=== PATIENT | female | born 1980 | race Caucasian/White ===

== ENCOUNTER 2017-08-17 13:43 | Inpatient (IN) | payer MEDICAID, SELFPAY ==
[2017-08-17] VITALS (15 sets, daily range): BP systolic 123–162; BP diastolic 61–115; PULSE 94–127; RESP 18–42; TEMP 36.1–37; O2SAT 89–97; BMI 54.4; BMI 52.7
[2017-08-17] MEDS: Ipratropium/Albuterol Sulfate 3 ML AMPUL.NEB INHALATION ×4 (14:14→23:04)
[2017-08-17] MEDS: Albuterol 2.5 MG/3 ML VIAL.NEB. INHALATION ×5 (14:15→20:52)
[2017-08-17] MEDS: predniSONE 20 MG Tablet 60 MG PO (14:20)
--- NOTE | 2017-08-17 14:20 | ED.VISSUMM ---
- ER Visit Summary Date of Service: 08/17/17 Chief Complaint: Short of breath, cough, wheezing History of Present Illness: The patient is a 37 F who reported took a hit of marijuana from a bong last night. She now has shortness of breath and wheezing. She does report chest congestion with a nonproductive cough as well. Patient went to [facility] where her oxygen saturation was noted to be 86%. She was sent here for treatment. Patient denies a formal diagnosis of asthma, but does state that she gets significant wheezing when she gets sick. She does use an inhaler and steroids when she gets sick, but not when she is otherwise well. Patient does smoke cigarettes. Physical Examination: Vital signs reveal blood pressure 152/87, temperature 97, heart rate 121, respiratory rate 24, pulse ox 95% on room air. Oxygen saturation will fluctuate between the high 80s and mid 90s. Head neck examination is unremarkable. She has moist mucous membranes. Heart is tachycardic and regular. Lung sounds are with expiratory wheezes throughout. She is speaking full sentences. Abdomen is soft and nontender. Test Results: CBC and chemistry studies are unremarkable. Two-view chest x-ray is read as patchy bilateral infiltrates. Emergency Department Course and Treatment: Patient is given p.o. prednisone and aerosol treatments. Following the first round of aerosols, the patient was sleeping comfortably with O2 sat of 97% on room air. She was still having expiratory wheezes but no distress. After she returned from x-ray where they had her stand up and move across the room, her oxygen saturations were back in the mid 80s. She is placed on 2 L nasal cannula and additional air cells are ordered. Patient is currently back on room air and satting in the mid 90s. Heart rate is 120 secondary to the multiple breathing treatments. Patient will be admitted for further treatment. Treatment Plan: [] Disposition: Admit Impression: Viral bronchitis with bronchospasm This note was generated with [employer] dictation software. It may contain incorrect words, spelling, and punctuation that were not noted in review of the chart prior to signing ED Disposition - Plan for ED Patient: Chief Complaint: Shortness of Breath Referrals: Rhonda Adkins MD [Primary Care Provider] -
--- NOTE | 2017-08-17 15:10 | RAD_ITS ---
STUDY: X-RAY CHEST REASON FOR EXAM: Female, 37 years old. Wheezing and shortness of breath. Cough. TECHNIQUE: PA and lateral views of the chest. COMPARISON: Comparison is made with prior study dated July 06, 2010. FINDINGS: There now is evidence of increased markings at both lung bases worse on the right side. This is suggestive of bilateral patchy infiltrates. Follow-up is recommended. There is no demonstrated pleural abnormality. Normal size heart. Normal mediastinum and lizeth. Normal visualized pulmonary arteries. Normal visualized aortic arch and descending thoracic aorta. There are degenerative changes of the visualized thoracic spine. Normal visualized ribs, clavicles, and shoulders. There is no demonstrated abnormality of the visualized soft tissue structures of the upper abdomen. RAD/Chest PA and Lateral IMPRESSION: Patchy bibasilar infiltrates. Follow-up is recommended. Electronically Signed: Kong Glez MD at 15:40 EDT Tel [phone], Service support ,
[2017-08-17 15:47] LABS: Absolute Lymphocyte Count 1.42 X10^3/ul (0.83-4.51); Absolute Neutrophil Count 3.3 X10^3/uL (2.0-7.7); Basophil# 0.02 X10^3/uL; Basophil% 0.4 % (0-1); Eosinophils% 1.9 % (0-5); Hematocrit 44.5 % (37-47); Hemoglobin 13.6 g/dl (12.0-15.0); Lymphocyte # 1.42 X10^3/ul (4.0); Lymphocyte % 26.3 % (19-41); Mean Corp Hgb Conc 30.6 g/gl (32-36); Mean Corpuscular Hgb 29.1 pg (27.0-32.0); Mean Corpuscular Volume 95.1 fL (81-99); Mean Platelet Vol. 9.1 fl (6.2-12.0); Monocyte# 0.55 X10^3/uL; Monocyte% 10.2 % (0-10); Neutrophil # 3.28 X10^3/uL (2.7-7.7); Neutrophil % 60.8 % (47-70); Platelet Count 177 K/mm3 (150-450); RBC Distribution Width SD 51.9 fl (35.1-43.9); Red Blood Count 4.68 M/mm3 (4.2-5.4); White Blood Count 5.4 K/mm3 (4.4-11.0)
[2017-08-17 15:57] LABS: Anion Gap 5 (5-15); BUN 9 mg/dL (7-18); BUN/Creat Ratio 11.2 RATIO (10-20); Calcium,Total 8.6 mg/dL (8.5-10.1); Chloride 107 mmol/L (98-107); Creatinine, Serum 0.81 mg/dL (0.55-1.02); EST Glomerular Filtration Rate 84 mL/min (>60); Est Glom Filt Rate - Afr Amer 101 mL/min (>60); Estimated Creatinine Clearance 77.14 ml/min; Glucose 98 mg/dL (74-106); Sodium Level 140 mmol/L (136-145)
[2017-08-17 16:12] LABS: POSITIVE DIFFERENTIAL NO
[2017-08-17 16:13] LABS: POSITIVE COUNT NO; POSITIVE MORPHOLOGY NO
--- NOTE | 2017-08-17 16:29 | ED.RN ---
02 MONITOR ALARMING, SPO2 85% WITH GOOD WAVEFORM. ASSESSED PT, PT RESTING IN BED WITH NO DISTRESS. 2L 02 NC APPLIED TO PT. O2 RETURNED TO 94%
--- NOTE | 2017-08-17 16:47 | NURSING ---
[address] [employer], DYSPONEA CHAGO
--- NOTE | 2017-08-17 16:49 | PCM.HP.STD ---
Problem List (1) Viral bronchitis Status: Acute (2) Mild intermittent asthma Status: Chronic (3) Obesity Status: Chronic (4) Hypoxemia Status: Acute History of Present Illness Date of Admission: 08/17/17 Chief Complaint: wheezing, short of breath The patient is a 37 year old F's medical history of mild intermittent asthma, obesity, who has had a chest cold for the past few days. 2-3 days ago, she used marijuana recreationally (bong hit). It was a large inhalation, to which she is not accustomed. She noted worsening wheezing and shortness of breath since that time. She attempted self-management with her pro-air inhaler but did not improve. She denies fevers chills nausea vomiting diarrhea, syncope, presyncope, chest pain, pleuritic pain, leg pain. In the emergency department, she was afebrile, mildly tachycardic at 111, respirations 20, saturation 97%. She received albuterol aerosol ?2, DuoNeb ?2 prednisone 60 mg p.o. After x-ray, she was noted to have saturation 80%, with persistent wheezing. Chest x-ray revealed no acute disease to my review, question of streakiness in the bases. Upon seeing the patient, she feels improved with oxygen applied, but still has persistent wheezing, and will therefore be admitted for pulmonary toilet. [] Past Medical History Past Medical History (Chronic Problems): Chronic Problems Mild intermittent asthma (Chronic) Obesity (Chronic) Allergies codeine Allergy (Verified 08/17/17 13:48) Anaphylaxis propoxyphene napsylate [From Darvocet-N] Allergy (Verified 08/17/17 14:07) Rash Sulfa (Sulfonamide Antibiotics) Allergy (Verified 08/17/17 13:48) Anaphylaxis amoxicillin Adverse Reaction (Verified 08/17/17 14:07) Other YEAST INFECTIONS Home Medications: Ambulatory Orders Medication Instructions Recorded Fluticasone 0.05% [Flonase Nasal 1 spray PO DAILY PRN 10/02/16 [place]] Loratadine [Loratadine] 10 mg PO DAILY 10/02/16 Nortriptyline HCl [Pamelor] 10 mg PO DAILY 10/02/16 Tizanidine HCl [Zanaflex] 1 tab PO DAILY 10/02/16 Zolpidem Tartrate [Ambien] 10 mg PO DAILY 10/02/16 Surgical History: noncontributory Psychiatric History: No pertinent psych hx Smoking Status: Current every day smoker Review of Systems Respiratory: Reports: Shortness of breath upon exertion, Wheezing VTE Information - Inpt Only VTE Present on Admission: No VTE Mechan Device Prophylaxis: SCD's VTE Pharm Prophylaxis ordered?: Yes Patient Problems: Active and Suspected Problems Viral bronchitis (Acute) Hypoxemia (Acute) - Physical Exam General: Alert, Oriented x3, Cooperative, No apparent distress HEENT: Atraumatic, PERRLA, EOMI, - - upper airway wheezes Oral: Moist Mucosa Neck: No JVD, No Nodes, No Nuchal Rigidity, Trachea Midline, Thyroid Normal Size and Texture Lungs: Wheezes Cardiovascular: Regular Rhythm, Normal S1, Normal S2, Tachycardic Abdomen: Soft, Non Tender, Non-Distended, Obese Extremities: - - non tender Musculoskeletal: No Tenderness to Palpation of Joints or Extremities, No Muscle Wasting Psych/Mental Status: Normal Affect, Appropriate Vital Signs Temp Pulse Resp BP Pulse Ox 97 F L 111 H 24 H 133/115 H 97 08/17/17 13:44 08/17/17 16:01 08/17/17 16:01 08/17/17 15:42 08/17/17 15:42 Oxygen Flow Rate (L/min) 2 Oxygen Delivery Method Nasal Cannula Weight: 307 lb 8.717 oz Body Mass Index (BMI) 54.4 Laboratory Tests Past 24 Hrs 08/17/17 08/17/17 15:30 15:30 WBC 5.4 RBC 4.68 Hgb 13.6 Hct 44.5 MCV 95.1 MCH 29.1 MCHC 30.6 L RDW 15.0 H RDW Differential 51.9 H Plt Count 177 MPV 9.1 Immature Gran % (Auto) 0.400 Neut % (Auto) 60.8 Lymph % (Auto) 26.3 Banner % (Auto) 10.2 H Eos % (Auto) 1.9 Baso % (Auto) 0.4 Absolute Neuts (auto) 3.3 Absolute Lymphs (auto) 1.42 Total Counted Not Reportable Sodium 140 Potassium 4.0 Chloride 107 Carbon Dioxide 28.0 Anion Gap 5 BUN 9 Creatinine 0.81 Estim Creat Clear Calc 77.14 Est GFR (MDRD) Af Amer 101 Est GFR (MDRD) Non-Af 84 BUN/Creatinine Ratio 11.2 Glucose 98 Calcium 8.6 Assessment/Plan Active and Suspected Problems Viral bronchitis (Acute) Hypoxemia (Acute) This is a 37-year-old smoking female with past medical history of mild intermittent asthma, who presents with reactive airway issues/active wheezing exertional hypoxemia in the setting of viral bronchitis and inhalational lung injury. Medical comorbidities include obesity, mild intermittent asthma, and intermittent osteoarthritic joint pains. 1. Viral bronchitis 2. Reactive airway/wheezing, in the setting of #1 and inhalation injury 3. Super morbid obesity 4. Exertional hypoxemia 5. History of insomnia on zolpidem at bedtime as needed 6. OA pains PLAN: Admit MedSurg telemetry Oxygen support per protocol Pulmonary toilet with DuoNeb aerosol every 4 hours while awake, albuterol aerosol every 2 hours as needed, Solu-Medrol 40 mg IV every 8 hour, Mucinex, Robitussin-DM as needed, cepacol lozenges as needed Glycemic control with NovoLog mild/medium scale prandial and at bedtime Patient is counseled
[2017-08-17 18:50] LABS: Bedside Glucose 193 mg/dL (70-110)
--- NOTE | 2017-08-17 19:12 | NURSING ---
KEYSHA FROM [facility] NOTIFIED OF PT NEED FOR STAT AEROSOL rX
[2017-08-17 19:17] LABS: Hemoglobin A1c 6.3 % (4.2-6.3)
[2017-08-17] MEDS: guaiFENesin 600 MG Tablet PO (22:23)
[2017-08-17 22:55] LABS: Bedside Glucose 196 mg/dL (70-110)
[2017-08-18] VITALS (20 sets, daily range): BP systolic 127–150; BP diastolic 67–96; PULSE 101–126; RESP 20–26; TEMP 36.4–37.3; O2SAT 82–98
[2017-08-18] MEDS: Ipratropium/Albuterol Sulfate 3 ML AMPUL.NEB INHALATION ×6 (03:00→23:44)
[2017-08-18] MEDS: 0.9% NaCl Peripheral Flush Adult/Peds IV ×2 (06:09→14:11)
[2017-08-18 06:32] LABS: Absolute Lymphocyte Count 1.14 X10^3/ul (0.83-4.51); Absolute Neutrophil Count 7.8 X10^3/uL (2.0-7.7); Basophil# 0.02 X10^3/uL; Basophil% 0.2 % (0-1); Hematocrit 43.3 % (37-47); Hemoglobin 13.2 g/dl (12.0-15.0); Lymphocyte # 1.14 X10^3/ul (4.0); Lymphocyte % 11.7 % (19-41); Mean Corp Hgb Conc 30.5 g/gl (32-36); Mean Corpuscular Hgb 29.1 pg (27.0-32.0); Mean Corpuscular Volume 95.6 fL (81-99); Mean Platelet Vol. 9.1 fl (6.2-12.0); Monocyte# 0.79 X10^3/uL; Monocyte% 8.1 % (0-10); Neutrophil # 7.79 X10^3/uL (2.7-7.7); Neutrophil % 79.9 % (47-70); Platelet Count 200 K/mm3 (150-450); RBC Distribution Width CV 15.1 % (11.6-14.6); RBC Distribution Width SD 52.4 fl (35.1-43.9); Red Blood Count 4.53 M/mm3 (4.2-5.4); White Blood Count 9.8 K/mm3 (4.4-11.0)
[2017-08-18 06:51] LABS: POSITIVE COUNT NO; POSITIVE DIFFERENTIAL NO; POSITIVE MORPHOLOGY NO
[2017-08-18 06:54] LABS: Anion Gap 8 (5-15); BUN 13 mg/dL (7-18); BUN/Creat Ratio 17.5 RATIO (10-20); Calcium,Total 8.6 mg/dL (8.5-10.1); Chloride 107 mmol/L (98-107); Creatinine, Serum 0.74 mg/dL (0.55-1.02); EST Glomerular Filtration Rate 92 mL/min (>60); Est Glom Filt Rate - Afr Amer 112 mL/min (>60); Estimated Creatinine Clearance 88.14 ml/min; Glucose 148 mg/dL (74-106); Magnesium 2.1 mg/dL (1.6-2.6); Potassium 4.7 mmol/L (3.5-5.1); Sodium Level 136 mmol/L (136-145)
[2017-08-18] MEDS: Nortriptyline 10 MG Capsule PO (09:07)
[2017-08-18] MEDS: tiZANidine HCl 2 MG Tablet PO (09:07)
[2017-08-18] MEDS: Loratadine 10 MG Tablet PO (09:07)
[2017-08-18] MEDS: guaiFENesin 600 MG Tablet PO ×2 (09:07→21:35)
[2017-08-18] MEDS: Famotidine 20 MG Tablet PO ×2 (09:12→21:35)
--- NOTE | 2017-08-18 09:40 | RAD_ITS ---
STUDY: X-RAY CHEST REASON FOR EXAM: Female, 37 years old. Wheezing. Shortness of breath. TECHNIQUE: Single AP portable view of the chest. COMPARISON: Comparison is made with prior study dated August 17, 2017. FINDINGS: EKG electrodes are seen. The lungs are clear and expanded. There is no demonstrated pleural abnormality. Normal size heart. Normal mediastinum and lizeth. Normal visualized pulmonary arteries. Normal visualized aortic arch and descending thoracic aorta. Normal visualized thoracic spine. Normal visualized ribs, clavicles, and shoulders. There is no demonstrated abnormality of the visualized soft tissue structures of the upper abdomen. RAD/Chest 1 View (Portable) IMPRESSION: No acute abnormality is seen. Electronically Signed: Kong Glez MD at 15:11 EDT Tel [phone], Service support ,
[2017-08-18 12:35] LABS: Bedside Glucose 265 mg/dL (70-110)
--- NOTE | 2017-08-18 15:01 | PCM.PN.HOSP ---
Patient Problems: Active and Suspected Problems Viral bronchitis (Acute) Hypoxemia (Acute) Subjective: Patient was seen and examined. Remains on Venturi mask. Having labile moods. Still wheezing. No sputum production. Objective: Physical Exam General: Alert, Oriented x3, Cooperative, morbidly obese, generalised wheezes all over chest. HEENT: Atraumatic, PERRLA, EOMI, - - upper airway wheezes Oral: Moist Mucosa Neck: No JVD, No Nodes, No Nuchal Rigidity, Trachea Midline, Thyroid Normal Size and Texture Lungs: Wheezes Cardiovascular: Regular Rhythm, Normal S1, Normal S2, Tachycardic Abdomen: Soft, Non Tender, Non-Distended, Obese Extremities: - - non tender Musculoskeletal: No Tenderness to Palpation of Joints or Extremities, No Muscle Wasting Psych/Mental Status: Normal Affect, Appropriate Vitals/I&O's: Vital Signs Temp Pulse Resp BP Pulse Ox 98.1 F 104 H 22 H 127/71 H 92 08/18/17 09:03 08/18/17 14:05 08/18/17 14:05 08/18/17 09:03 08/18/17 09:03 Oxygen Flow Rate (L/min) 5 Oxygen Delivery Method Venturi Mask Weight: 139.5 kg Body Mass Index (BMI) 52.7 Intake and Output for Last 24 Hours 08/16/17 08/17/17 08/18/17 23:59 23:59 23:59 Intake Total 300 / 300 2720 / 2720 Output Total 600 / 600 850 / 850 Balance -300 / -300 1870 / 1870 Laboratory Results 08/17/17 18:41: POC Glucose 193 H 08/17/17 22:17: POC Glucose 196 H 08/18/17 06:18: Sodium 136, Potassium 4.7, Chloride 107, Carbon Dioxide 21.0, Anion Gap 8, BUN 13, Creatinine 0.74, Estim Creat Clear Calc 88.14, Est GFR (MDRD) Af Amer 112, Est GFR (MDRD) Non-Af 92, BUN/Creatinine Ratio 17.5, Glucose 148 H, Calcium 8.6, Magnesium 2.1 08/18/17 06:18: WBC 9.8, RBC 4.53, Hgb 13.2, Hct 43.3, MCV 95.6, MCH 29.1, MCHC 30.5 L, RDW 15.1 H, RDW Differential 52.4 H, Plt Count 200, MPV 9.1, Immature Gran % (Auto) 0.100, Neut % (Auto) 79.9 H, Lymph % (Auto) 11.7 L, Sevier % (Auto) 8.1, Eos % (Auto) 0.0, Baso % (Auto) 0.2, Absolute Neuts (auto) 7.8 H, Absolute Lymphs (auto) 1.14, Total Counted Not Reportable 08/18/17 12:30: POC Glucose 265 H Current Medications Acetaminophen (Tylenol) 650 mg PO Q6H PRN PRN PRN Reason: Mild Pain (scale 0-3)/T>100.7 Albuterol Sulfate (Ventolin Aerosols) 2.5 mg INHALATION Q2H PRN PRN Reason: WHEEZING Last Admin: 08/17/17 20:52 Dose: 2.5 mg Albuterol/Ipratropium (Duoneb) 3 ml INHALATION Q4HWA.RT [facility] Last Admin: 08/18/17 14:04 Dose: 3 ml Dextrose (D50w Syringe) 0 gm IV X1 PRN; Protocol PRN Reason: Hypoglycemia Docusate Sodium (Colace) 200 mg PO BID PRN PRN PRN Reason: Constipation Famotidine (Pepcid) 20 mg PO BID [facility] Last Admin: 08/18/17 09:12 Dose: 20 mg Glucagon () 1 mg IM .X1 PRN PRN Reason: Hypoglycemia Guaifenesin (Robitussin Dm) 10 ml PO Q6H PRN PRN PRN Reason: COUGH Guaifenesin (Mucinex) 600 mg PO BID [facility] Last Admin: 08/18/17 09:07 Dose: 600 mg Heparin Sodium (Porcine) (Heparin Na) 5,000 unit SC BID [facility] Last Admin: 08/18/17 09:12 Dose: Not Given Insulin Aspart (Novolog Flexpen (Bkc)) 0 units SC ACHS [facility] PRN Reason: Protocol Last Admin: 08/18/17 12:39 Dose: 2 u Loratadine (Claritin) 10 mg PO DAILY [facility] Last Admin: 08/18/17 09:07 Dose: 10 mg Magnesium Hydroxide (Milk Of Magnesia) 30 ml PO DAILY PRN PRN PRN Reason: Constipation Methylprednisolone (Solu-Medrol) 40 mg IV Q8 [facility] Last Admin: 08/18/17 14:11 Dose: 40 mg Nortriptyline HCl (Pamelor) 10 mg PO DAILY [facility] Last Admin: 08/18/17 09:07 Dose: 10 mg Ondansetron HCl (Zofran) 4 mg IV Q8H PRN PRN PRN Reason: Nausea Sodium Chloride () 5 - 30 ml IV UD PRN PRN Reason: SALINE FLUSH Last Admin: 08/18/17 14:11 Dose: 10 ml Throat Lozenges (Cepacol Sore Throat Lozenge) 1 lozenge MUCOUS MEM PRN PRN PRN Reason: PAIN Tizanidine HCl (Zanaflex) 2 mg PO DAILY [facility] Last Admin: 08/18/17 09:07 Dose: 2 mg Zolpidem Tartrate (Ambien (Generic)) 5 mg PO QHS PRN PRN Reason: SLEEP Medical Necessity - Tobacco Use Smoking Status: Current every day smoker Assessment/Plan Active and Suspected Problems Viral bronchitis (Acute) Hypoxemia (Acute) 37-year-old with past medical history of mild intermittent asthma, admitted on 08/17/17 with cough and wheezing with reactive airway issues/active wheezing exertional hypoxemia in the setting of viral bronchitis and inhalational lung injury. 1. Acute hypoxic respiratory insufficiency secondary to reactive airway disease/viral bronchitis/inhalation injury(from Marijuana), ? additives in the marijuana inhaled, respiratory panel pending, on high flow oxygen, wean off for SPO2 more than 94%, continue breathing treatment. Pulmonology consult. 2. Super morbid obesity, weight loss, diet recommended, needs referral for evaluation for possible bariatric surgery 3. Insomnia, on zolpidem at bedtime as needed 4. Osteoarthritis 5. Hyperglycemia, HbA1c is 6.3, on NovoLog insulin sliding scale 6. DVT PPx- Heparin SC TID- Code Visit Inpatient E&M: 36233 [facility] Hosp L3
--- NOTE | 2017-08-18 15:11 | PN_ITS ---
Patient Problems: Active and Suspected Problems Viral bronchitis (Acute) Hypoxemia (Acute) Subjective: Patient was seen and examined. Remains on Venturi mask. Having labile moods. Still wheezing. No sputum production. Objective: Physical Exam General: Alert, Oriented x3, Cooperative, morbidly obese, generalised wheezes all over chest. HEENT: Atraumatic, PERRLA, EOMI, - - upper airway wheezes Oral: Moist Mucosa Neck: No JVD, No Nodes, No Nuchal Rigidity, Trachea Midline, Thyroid Normal Size and Texture Lungs: Wheezes Cardiovascular: Regular Rhythm, Normal S1, Normal S2, Tachycardic Abdomen: Soft, Non Tender, Non-Distended, Obese Extremities: - - non tender Musculoskeletal: No Tenderness to Palpation of Joints or Extremities, No Muscle Wasting Psych/Mental Status: Normal Affect, Appropriate Vitals/I&O's: Vital Signs Temp Pulse Resp BP Pulse Ox 98.1 F 104 H 22 H 127/71 H 92 08/18/17 09:03 08/18/17 14:05 08/18/17 14:05 08/18/17 09:03 08/18/17 09:03 Oxygen Flow Rate (L/min) 5 Oxygen Delivery Method Venturi Mask Weight: 139.5 kg Body Mass Index (BMI) 52.7 Intake and Output for Last 24 Hours 08/16/17 08/17/17 08/18/17 23:59 23:59 23:59 Intake Total 300 / 300 2720 / 2720 Output Total 600 / 600 850 / 850 Balance -300 / -300 1870 / 1870 Laboratory Results 08/17/17 18:41: POC Glucose 193 H 08/17/17 22:17: POC Glucose 196 H 08/18/17 06:18: Sodium 136, Potassium 4.7, Chloride 107, Carbon Dioxide 21.0, Anion Gap 8, BUN 13, Creatinine 0.74, Estim Creat Clear Calc 88.14, Est GFR ( MDRD) Af Amer 112, Est GFR (MDRD) Non-Af 92, BUN/Creatinine Ratio 17.5, Glucose 148 H, Calcium 8.6, Magnesium 2.1 08/18/17 06:18: WBC 9.8, RBC 4.53, Hgb 13.2, Hct 43.3, MCV 95.6, MCH 29.1, MCHC 30.5 L, RDW 15.1 H, RDW Differential 52.4 H, Plt Count 200, MPV 9.1, Immature Gran % (Auto) 0.100, Neut % (Auto) 79.9 H, Lymph % (Auto) 11.7 L, Lee % (Auto) 8.1, Eos % (Auto) 0.0, Baso % (Auto) 0.2, Absolute Neuts (auto) 7.8 H, Absolute Lymphs (auto) 1.14, Total Counted Not Reportable 08/18/17 12:30: POC Glucose 265 H Current Medications Acetaminophen (Tylenol) 650 mg PO Q6H PRN PRN PRN Reason: Mild Pain (scale 0-3)/T>100.7 Albuterol Sulfate (Ventolin Aerosols) 2.5 mg INHALATION Q2H PRN PRN Reason: WHEEZING Last Admin: 08/17/17 20:52 Dose: 2.5 mg Albuterol/Ipratropium (Duoneb) 3 ml INHALATION Q4HWA.RT [facility] Last Admin: 08/18/17 14:04 Dose: 3 ml Dextrose (D50w Syringe) 0 gm IV X1 PRN; Protocol PRN Reason: Hypoglycemia Docusate Sodium (Colace) 200 mg PO BID PRN PRN PRN Reason: Constipation Famotidine (Pepcid) 20 mg PO BID [facility] Last Admin: 08/18/17 09:12 Dose: 20 mg Glucagon () 1 mg IM .X1 PRN PRN Reason: Hypoglycemia Guaifenesin (Robitussin Dm) 10 ml PO Q6H PRN PRN PRN Reason: COUGH Guaifenesin (Mucinex) 600 mg PO BID [facility] Last Admin: 08/18/17 09:07 Dose: 600 mg Heparin Sodium (Porcine) (Heparin Na) 5,000 unit SC BID [facility] Last Admin: 08/18/17 09:12 Dose: Not Given Insulin Aspart (Novolog Flexpen (Bkc)) 0 units SC ACHS [facility] PRN Reason: Protocol Last Admin: 08/18/17 12:39 Dose: 2 u Loratadine (Claritin) 10 mg PO DAILY [facility] Last Admin: 08/18/17 09:07 Dose: 10 mg Magnesium Hydroxide (Milk Of Magnesia) 30 ml PO DAILY PRN PRN PRN Reason: Constipation Methylprednisolone (Solu-Medrol) 40 mg IV Q8 [facility] Last Admin: 08/18/17 14:11 Dose: 40 mg Nortriptyline HCl (Pamelor) 10 mg PO DAILY [facility] Last Admin: 08/18/17 09:07 Dose: 10 mg Ondansetron HCl (Zofran) 4 mg IV Q8H PRN PRN PRN Reason: Nausea Sodium Chloride () 5 - 30 ml IV UD PRN PRN Reason: SALINE FLUSH Last Admin: 08/18/17 14:11 Dose: 10 ml Throat Lozenges (Cepacol Sore Throat Lozenge) 1 lozenge MUCOUS MEM PRN PRN PRN Reason: PAIN Tizanidine HCl (Zanaflex) 2 mg PO DAILY [facility] Last Admin: 08/18/17 09:07 Dose: 2 mg Zolpidem Tartrate (Ambien (Generic)) 5 mg PO QHS PRN PRN Reason: SLEEP Medical Necessity - Tobacco Use Smoking Status: Current every day smoker Assessment/Plan Active and Suspected Problems Viral bronchitis (Acute) Hypoxemia (Acute) 37-year-old with past medical history of mild intermittent asthma, admitted on with cough and wheezing with reactive airway issues/active wheezing exertional hypoxemia in the setting of viral bronchitis and inhalational lung injury. 1. Acute hypoxic respiratory insufficiency secondary to reactive airway disease/ viral bronchitis/inhalation injury(from Marijuana), ? additives in the marijuana inhaled, respiratory panel pending, on high flow oxygen, wean off for SPO2 more than 94%, continue breathing treatment. Pulmonology consult. 2. Super morbid obesity, weight loss, diet recommended, needs referral for evaluation for possible bariatric surgery 3. Insomnia, on zolpidem at bedtime as needed 4. Osteoarthritis 5. Hyperglycemia, HbA1c is 6.3, on NovoLog insulin sliding scale 6. DVT PPx- Heparin SC TID- Code Visit Inpatient E&M: 50285 [facility] L3
--- NOTE | 2017-08-18 15:35 | CASEMGMT ---
[facility] Face to Face with patient for initial transition planning/care coordination assessment. RN SAÚL introduced self and role at [facility]. Patient lying in bed, alert and oriented. Patient willing to participate in assessment and is able to answer all questions appropriately. Care providers, pharmacy, and demographics verified. See link attached. Patient wishes to discharge home, denies need for home health at this time. Patient states that she may need new nebulizer has hers is old and cannot find it, may be in storage. Patient states she has no further needs or concerns at this time. CM to follow for discharge planning needs that may arise. Disposition Plan: Patient to discharge home with family support and follow-up plans in place. Will continue to monitor for need for home oxygen and nebulizer.
[2017-08-18 16:11] LABS: Bedside Glucose 177 mg/dL (70-110)
--- NOTE | 2017-08-18 16:49 | CHAPLAIN ---
Type of Pastoral Visit _x__ Initial Visit ___ Follow-up Visit ___ On-call Visit ___ General Patient Visit ___ Spiritual Assessment ___ Family Conference ___ Bereavement ___ Rapid Response ___ Code Blue ___ Other (describe below) Pastoral Care Referral From _x__ Patient ___ Family ___ Nurse ___ Physician ___ Lan Manager ___ Equipment Processor ___ Other (describe below) Sacrament/Intervention _x__ Active listening ___ Anointing ___ Mandaen ___ Bereavement ___ Communion ___ Teresa exploration ___ ___ Life review ___ Prayer ___ Reconciliation ___ Sacrament of Sick ___ Supportive presence ___ Wedding ___ Other (describe below) Pastoral Comments patient was receiving a breathing treatment at time of visit; pt said that she is frustrated because she should be down in [facility] because a granddaughter was born there last night; brief visit
[2017-08-18 22:21] LABS: Bedside Glucose 201 mg/dL (70-110)
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
--- NOTE | 2017-08-18 23:40 | NURSING ---
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
[2017-08-19] VITALS (14 sets, daily range): BP systolic 122–157; BP diastolic 61–94; PULSE 86–122; RESP 20–24; TEMP 36.2–36.9; O2SAT 84–99
[2017-08-19] MEDS: Ipratropium/Albuterol Sulfate 3 ML AMPUL.NEB INHALATION ×6 (03:17→23:25)
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
[2017-08-19] MEDS: tiZANidine HCl 2 MG Tablet PO (09:45)
[2017-08-19] MEDS: Nortriptyline 10 MG Capsule PO (09:45)
[2017-08-19] MEDS: Loratadine 10 MG Tablet PO (09:45)
[2017-08-19] MEDS: guaiFENesin 600 MG Tablet PO ×2 (09:45→21:41)
[2017-08-19] MEDS: Famotidine 20 MG Tablet PO ×2 (09:45→21:41)
[2017-08-19] MEDS: Acetaminophen 325 MG Tablet 650 MG PO ×2 (09:56→22:58)
[2017-08-19] MEDS: guaiFENesin Dm 10 ML UDC PO ×2 (09:56→22:58)
[2017-08-19 11:41] LABS: Bedside Glucose 210 mg/dL (70-110)
[2017-08-19 11:45] LABS: Bedside Glucose 204 mg/dL (70-110)
--- NOTE | 2017-08-19 14:42 | PN_ITS ---
Patient Problems: Active and Suspected Problems Viral bronchitis (Acute) Hypoxemia (Acute) Acute respiratory failure with hypoxia (Acute) Suspected sleep apnea (Acute) Subjective: Patient was seen and examined, still has wheezes, remains on high flow oxygen, denies any fever or chills. Respiratory panel has been positive for human Rider pneumo virus Objective: Physical Exam General: Alert, Oriented x3, Cooperative, morbidly obese, generalised wheezes all over chest. HEENT: Atraumatic, PERRLA, EOMI, - - upper airway wheezes Oral: Moist Mucosa Neck: No JVD, No Nodes, No Nuchal Rigidity, Trachea Midline, Thyroid Normal Size and Texture Lungs: Wheezes Cardiovascular: Regular Rhythm, Normal S1, Normal S2, Tachycardic Abdomen: Soft, Non Tender, Non-Distended, Obese Extremities: - - non tender Musculoskeletal: No Tenderness to Palpation of Joints or Extremities, No Muscle Wasting Psych/Mental Status: Normal Affect, Appropriate Vitals/I&O's: Vital Signs Temp Pulse Resp BP Pulse Ox 97.1 F L 100 20 H 136/78 H 84 08/19/17 09:40 08/19/17 10:54 08/19/17 10:54 08/19/17 09:40 08/19/17 09:40 Oxygen Flow Rate (L/min) 8 Oxygen Delivery Method Venturi Mask Weight: 139.5 kg Body Mass Index (BMI) 52.7 Intake and Output for Last 24 Hours 08/17/17 08/18/17 08/19/17 23:59 23:59 23:59 Intake Total 300 / 300 3670 / 3670 1000 / 1000 Output Total 600 / 600 850 / 850 Balance -300 / -300 2820 / 2820 1000 / 1000 Microbiology Past 72 Hours 08/18/17 14:01 Mucosa - Nose Respiratory Panel (PCR) - Final Human [place] Laboratory Results 08/18/17 16:05: POC Glucose 177 H 08/18/17 21:28: POC Glucose 201 H 08/19/17 07:00: POC Glucose 204 H 08/19/17 11:30: POC Glucose 210 H Current Medications Acetaminophen (Tylenol) 650 mg PO Q6H PRN PRN PRN Reason: Mild Pain (scale 0-3)/T>100.7 Last Admin: 08/19/17 09:56 Dose: 650 mg Albuterol Sulfate (Ventolin Aerosols) 2.5 mg INHALATION Q2H PRN PRN Reason: WHEEZING Last Admin: 08/17/17 20:52 Dose: 2.5 mg Albuterol/Ipratropium (Duoneb) 3 ml INHALATION Q4HWA.RT [facility] Last Admin: 08/19/17 10:54 Dose: 3 ml Dextrose (D50w Syringe) 0 gm IV X1 PRN; Protocol PRN Reason: Hypoglycemia Docusate Sodium (Colace) 200 mg PO BID PRN PRN PRN Reason: Constipation Famotidine (Pepcid) 20 mg PO BID [facility] Last Admin: 08/19/17 09:45 Dose: 20 mg Glucagon () 1 mg IM .X1 PRN PRN Reason: Hypoglycemia Guaifenesin (Robitussin Dm) 10 ml PO Q6H PRN PRN PRN Reason: COUGH Last Admin: 08/19/17 09:56 Dose: 10 ml Guaifenesin (Mucinex) 600 mg PO BID [facility] Last Admin: 08/19/17 09:45 Dose: 600 mg Heparin Sodium (Porcine) (Heparin Na) 5,000 unit SC TID [facility] Last Admin: 08/19/17 05:31 Dose: Not Given Sodium Chloride () 250 mls @ 15 mls/hr IV .[id number] PRN PRN Reason: SALINE FLUSH Insulin Aspart (Novolog Flexpen (Bkc)) 0 units SC ACHS [facility] PRN Reason: Protocol Last Admin: 08/19/17 11:34 Dose: 2 u Loratadine (Claritin) 10 mg PO DAILY [facility] Last Admin: 08/19/17 09:45 Dose: 10 mg Magnesium Hydroxide (Milk Of Magnesia) 30 ml PO DAILY PRN PRN PRN Reason: Constipation Methylprednisolone (Solu-Medrol) 40 mg IV Q8 [facility] Last Admin: 08/19/17 05:30 Dose: 40 mg Nortriptyline HCl (Pamelor) 10 mg PO DAILY [facility] Last Admin: 08/19/17 09:45 Dose: 10 mg Ondansetron HCl (Zofran) 4 mg IV Q8H PRN PRN PRN Reason: Nausea Sodium Chloride () 5 - 30 ml IV UD PRN PRN Reason: SALINE FLUSH Last Admin: 08/18/17 14:11 Dose: 10 ml Throat Lozenges (Cepacol Sore Throat Lozenge) 1 lozenge MUCOUS MEM PRN PRN PRN Reason: PAIN Tizanidine HCl (Zanaflex) 2 mg PO DAILY [facility] Last Admin: 08/19/17 09:45 Dose: 2 mg Zolpidem Tartrate (Ambien (Generic)) 5 mg PO QHS PRN PRN Reason: SLEEP Medical Necessity - Tobacco Use Smoking Status: Heavy Smoker (>10/day) - [id number] history Tobacco Use: Cigarettes Assessment/Plan Active and Suspected Problems Viral bronchitis (Acute) Hypoxemia (Acute) Acute respiratory failure with hypoxia (Acute) Suspected sleep apnea (Acute) 37-year-old with past medical history of mild intermittent asthma, admitted on with cough and wheezing with reactive airway issues/active wheezing exertional hypoxemia in the setting of viral bronchitis and inhalational lung injury. 1. Acute hypoxic respiratory insufficiency secondary to reactive airway disease/ human metpneumo viral bronchitis/inhalation injury(from Marijuana), ? additives in the marijuana inhaled, respiratory panel pending, on high flow oxygen, wean off for SPO2 more than 94%, continue breathing treatment. Pulmonology consult. 2. Super morbid obesity, weight loss, diet recommended, needs referral for evaluation for possible bariatric surgery 3. Insomnia, on zolpidem at bedtime as needed 4. Osteoarthritis 5. Hyperglycemia, HbA1c is 6.3, on NovoLog insulin sliding scale 6. Polysubstance use, marijuana, nicotine, advised to quit 7. DVT PPx- Heparin SC TID- Code Visit Inpatient E&M: 331[address] [facility] L3
[2017-08-19] MEDS: 0.9% NaCl Peripheral Flush Adult/Peds IV (15:52)
[2017-08-19 18:26] LABS: Bedside Glucose 168 mg/dL (70-110)
[2017-08-19 21:56] LABS: Bedside Glucose 168 mg/dL (70-110)
[2017-08-19] MEDS: Zolpidem Tartrate 5 MG Tablet PO (22:58)
[2017-08-20] VITALS (15 sets, daily range): BP systolic 119–158; BP diastolic 64–88; PULSE 72–97; RESP 16–22; TEMP 36–36.9; O2SAT 77–97
[2017-08-20] MEDS: Ipratropium/Albuterol Sulfate 3 ML AMPUL.NEB INHALATION ×5 (06:32→22:26)
[2017-08-20 07:06] LABS: Bedside Glucose 177 mg/dL (70-110)
[2017-08-20] MEDS: Albuterol 2.5 MG/3 ML VIAL.NEB. INHALATION (08:24)
--- NOTE | 2017-08-20 08:28 | PCM.PN.HOSP ---
Patient Problems: Active and Suspected Problems Acute bronchitis due to human metapneumovirus (Acute) Acute respiratory failure with hypoxia (Acute) Suspected sleep apnea (Acute) Subjective: Patient was seen and examined. She feels frustrated, wants to go out and smoke, wants to be discharged. She has audible wheezes, still on high flow oxygen, the only slight improvement is that she is able to talk at 8-10 L of oxygen as needed for nasal cannula without any breaks or stop for shortness of breath. Denies any fever or chills, starting to have some clear sputum production. Objective: Physical Exam General: Alert, Oriented x3, Cooperative, morbidly obese, generalised wheezes all over chest. HEENT: Atraumatic, PERRLA, EOMI, - - upper airway wheezes Oral: Moist Mucosa Neck: No JVD, No Nodes, No Nuchal Rigidity, Trachea Midline, Thyroid Normal Size and Texture Lungs: Wheezes Cardiovascular: Regular Rhythm, Normal S1, Normal S2, Tachycardic Abdomen: Soft, Non Tender, Non-Distended, Obese Extremities: - - non tender Musculoskeletal: No Tenderness to Palpation of Joints or Extremities, No Muscle Wasting Psych/Mental Status: Normal Affect, Appropriate Vitals/I&O's: Vital Signs Temp Pulse Resp BP Pulse Ox 96.9 F L 90 20 H 119/64 77 08/20/17 02:04 08/20/17 02:04 08/20/17 02:04 08/20/17 02:04 08/20/17 07:45 Oxygen Flow Rate (L/min) 8 Oxygen Delivery Method Venturi Mask Weight: 139.5 kg Body Mass Index (BMI) 52.7 Intake and Output for Last 24 Hours 08/18/17 08/19/17 08/20/17 23:59 23:59 23:59 Intake Total 3670 / 3670 1300 / 1300 100 / 100 Output Total 850 / 850 Balance 2820 / 2820 1299 / 1299 100 / 100 Microbiology Past 72 Hours 08/18/17 14:01 Mucosa - Nose Respiratory Panel (PCR) - Final Human [place] Laboratory Results 08/19/17 07:00: POC Glucose 204 H 08/19/17 11:30: POC Glucose 210 H 08/19/17 16:49: POC Glucose 168 H 08/19/17 21:40: POC Glucose 168 H 08/20/17 06:55: POC Glucose 177 H Current Medications Acetaminophen (Tylenol) 650 mg PO Q6H PRN PRN PRN Reason: Mild Pain (scale 0-3)/T>100.7 Last Admin: 08/19/17 22:58 Dose: 650 mg Albuterol Sulfate (Ventolin Aerosols) 2.5 mg INHALATION Q2H PRN PRN Reason: WHEEZING Last Admin: 08/20/17 08:24 Dose: 2.5 mg Albuterol/Ipratropium (Duoneb) 3 ml INHALATION Q4HWA.RT [facility] Last Admin: 08/20/17 06:32 Dose: 3 ml Dextrose (D50w Syringe) 0 gm IV X1 PRN; Protocol PRN Reason: Hypoglycemia Docusate Sodium (Colace) 200 mg PO BID PRN PRN PRN Reason: Constipation Duloxetine HCl (Cymbalta) 90 mg PO DAILY [facility] Famotidine (Pepcid) 20 mg PO BID [facility] Last Admin: 08/19/17 21:41 Dose: 20 mg Glucagon () 1 mg IM .X1 PRN PRN Reason: Hypoglycemia Guaifenesin (Robitussin Dm) 10 ml PO Q6H PRN PRN PRN Reason: COUGH Last Admin: 08/19/17 22:58 Dose: 10 ml Guaifenesin (Mucinex) 600 mg PO BID [facility] Last Admin: 08/19/17 21:41 Dose: 600 mg Heparin Sodium (Porcine) (Heparin Na) 5,000 unit SC TID [facility] Last Admin: 08/20/17 05:20 Dose: Not Given Sodium Chloride () 250 mls @ 15 mls/hr IV .[id number] PRN PRN Reason: SALINE FLUSH Insulin Aspart (Novolog Flexpen (Bkc)) 0 units SC ACHS [facility] PRN Reason: Protocol Last Admin: 08/20/17 06:57 Dose: 1 u Loratadine (Claritin) 10 mg PO DAILY [facility] Last Admin: 08/19/17 09:45 Dose: 10 mg Magnesium Hydroxide (Milk Of Magnesia) 30 ml PO DAILY PRN PRN PRN Reason: Constipation Methylprednisolone (Solu-Medrol) 40 mg IV Q8 [facility] Last Admin: 08/20/17 06:10 Dose: 40 mg Nicotine (Nicoderm Cq (Pbkc)) 21 mg TRANSDERM. DAILY [facility] Nicotine Polacrilex ([place] Nicotine (Bkc)) 2 mg PO Q2H PRN PRN PRN Reason: Nicotine Craving Nortriptyline HCl (Pamelor) 10 mg PO DAILY [facility] Last Admin: 08/19/17 09:45 Dose: 10 mg Ondansetron HCl (Zofran) 4 mg IV Q8H PRN PRN PRN Reason: Nausea Sodium Chloride () 5 - 30 ml IV UD PRN PRN Reason: SALINE FLUSH Last Admin: 08/19/17 15:52 Dose: 10 ml Throat Lozenges (Cepacol Sore Throat Lozenge) 1 lozenge MUCOUS MEM PRN PRN PRN Reason: PAIN Tizanidine HCl (Zanaflex) 2 mg PO DAILY [facility] Last Admin: 08/19/17 09:45 Dose: 2 mg Zolpidem Tartrate (Ambien (Generic)) 5 mg PO QHS PRN PRN Reason: SLEEP Last Admin: 08/19/17 22:58 Dose: 5 mg Medical Necessity - Tobacco Use Smoking Status: Heavy Smoker (>10/day) - [id number] history Tobacco Use: Cigarettes Assessment/Plan Active and Suspected Problems Acute bronchitis due to human metapneumovirus (Acute) Acute respiratory failure with hypoxia (Acute) Suspected sleep apnea (Acute) 37-year-old with past medical history of mild intermittent asthma, admitted on 08/17/17 with cough and wheezing with reactive airway issues/active wheezing exertional hypoxemia in the setting of viral bronchitis and inhalational lung injury. 1. Acute hypoxic respiratory insufficiency secondary to #2, not much improvement, remains the same. Will continue to attempt to wean off for SPO2 more than 94%, continue breathing treatment. Pulmonology consulted 2. Acute asthma exacerbation/human metpneumo viral bronchitis/inhalation injury(from Marijuana),? additives in the marijuana inhaled, on high flow oxygen, 2. Super morbid obesity, weight loss, diet recommended, needs referral for evaluation for possible bariatric surgery 3. Insomnia, on zolpidem at bedtime as needed 4. Osteoarthritis 5. Hyperglycemia, HbA1c is 6.3, BS are fairly uncontrolled secondary to steroids, on NovoLog insulin sliding scale 6. Polysubstance use, marijuana, nicotine, advised to quit, nicotine patch and gum given. 7. DVT PPx- Heparin SC TID- Code Visit Inpatient E&M: [id number] [facility]osp L3
--- NOTE | 2017-08-20 09:06 | PCM.PROGNOTE ---
Patient Problems: Active and Suspected Problems Acute respiratory failure with hypoxia (Acute) Suspected sleep apnea (Acute) Acute bronchitis due to human metapneumovirus (Acute) Subjective: The patient was seen and examined. She is upset that she is not yet allowed to shower because she is still on the Venturi mask. Nursing staff and respiratory try to wean to 6 L, however patient desaturated into the mid 80s. She still complains of a cough, becoming more productive with yellow sputum. She also complains of significant wheezing, just received her as needed breathing treatment. States she needs her Cymbalta, has been off of it for 1-2 weeks Objective: Recent lab and culture data reviewed, no new labs today. Respiratory viral panel positive for human metapneumovirus. Chest x-ray on the with no acute abnormality. A room air pulse ox check was 77% this morning. - Physical Exam General: Alert, Oriented x3, Cooperative, - - Mild conversational dyspnea HEENT: Atraumatic, Normocephalic Oral: Moist Mucosa Neck: Supple, Trachea Midline Lungs: - - Poor air flow, global wheezing. No rales or rhonchi, no dullness to percussion. Symmetric expansion Cardiovascular: Regular rate, Regular Rhythm, Normal S1, Normal S2, No murmurs Abdomen: Bowel Sounds Present, Soft, Non Tender, Non-Distended, Obese Extremities: No clubbing, No cyanosis, Edema - Trace lower extremity Skin: No rashes, No breakdown Musculoskeletal: No Tenderness to Palpation of Joints or Extremities Lymphatic: No Cervical, Supraclavicular, or Inguinal Adenopathy Neurological: Neuro grossly intact Psych/Mental Status: Depressed Vital Signs Temp Pulse Resp BP Pulse Ox 96.9 F L 89 20 H 119/64 77 08/20/17 02:04 08/20/17 08:24 08/20/17 08:24 08/20/17 02:04 08/20/17 07:45 Oxygen Flow Rate (L/min) 8 Oxygen Delivery Method Venturi Mask Weight: 307 lb 8.717 oz Body Mass Index (BMI) 52.7 Intake and Output for Last 24 Hours 08/18/17 08/19/17 08/20/17 23:59 23:59 23:59 Intake Total 3670 / 3670 1300 / 1300 100 / 100 Output Total 850 / 850 Balance 2820 / 2820 1299 / 1299 100 / 100 Microbiology Past 72 Hours 08/18/17 14:01 Respiratory Panel (PCR) - Final Mucosa - Nose Human [place] POC Glucose 08/20/17 08/19/17 08/19/17 06:55 21:40 16:49 POC Glucose 177 H 168 H 168 H 08/19/17 08/19/17 11:30 07:00 POC Glucose 210 H 204 H Medical Necessity - Tobacco Use Smoking Status: Heavy Smoker (>10/day) - 61-[id number] history Tobacco Use: Cigarettes Assessment/Plan Active and Suspected Problems Acute respiratory failure with hypoxia (Acute) Suspected sleep apnea (Acute) Acute bronchitis due to human metapneumovirus (Acute) RECOMMENDATIONS 1. Wean oxygen supplementation to keep saturations greater than 89% 2. Encourage incentive spirometer and Acapella 3. Increase activity as tolerated, mobilize patient 4. Continue scheduled and PRN bronchodilators, mucolytics, cough suppressant 5. Maintain isolation precautions 6. No indication for antibiotics at this time 7. Ambulatory pulse ox prior to discharge 8. Patient would benefit from pulmonary follow-up, she can be seen in 2 weeks after discharge by [facility] at which time pulmonary function test can be ordered, as well as polysomnogram IMPRESSIONS 1. Acute hypoxic respiratory failure secondary to human metapneumovirus/self-reported asthma Significant cough, still requiring high flow oxygen/Ventimask. Significant wheezing. Likely hyperactive airway secondary to viral infection. Patient reports asthma, no testing to confirm just assumed. No leukocytosis or fevers to suggest infection, chest x-ray showing no acute abnormality. I suspect the patient also has an element of obesity hypoventilation syndrome. She continues to routinely smoke marijuana and cigarettes despite being short of breath most of the time. She was counseled on smoking cessation and is not very interested at this time. Patient should have a walking oximetry prior to discharge to assess for exertional hypoxia. She can follow-up in the pulmonary clinic in 2 weeks after discharge, at which time pulmonary function test can be ordered to clarify if the patient in fact has altered lung function. Continue her bronchodilators and mucolytics. Encourage IS/Acapella. She has PRN Robitussin for her cough. 2. Suspected sleep apnea Patient has multiple risk factors, including her weight, body habitus, and daytime symptoms. She would benefit from outpatient polysomnogram. 3. Morbid obesity/tobacco abuse Complicates care, management, recovery, and prognosis. Resume home medications as indicated. Patient was counseled on smoking cessation but declines. Thank you for the opportunity to participate in this patient's care, please do not hesitate contact us with any further questions or concerns. This note was generated with [employer] dictation software. It may contain incorrect words, spelling, and punctuation that were not noted in checking the note before signing.
--- NOTE | 2017-08-20 10:27 | NURSING ---
[id number] said nurse and mini shifter RN Mateo in to round with pt. pt with multiple complaints and using profanity. pt states she is going to leave and go smoke i have cigarettes in my purse and also out there in my car that is parked by the ER. updated pt on safety/health promotion/non smoking and risks/ramifications of smoking with oxygen. much reinforcement/health promotion given regarding health status and pt voicing frustrations with having to stay in the hosptial, catching this from her dad, wanting to leave, dislikes cardiac monitoring, feels like she is in long-term. listened to pt concerns. pt states she is going to call her MD at the counseling center at [phone]- pt offers said nurse to do- said nurse promoted pt to do for self since the number is written on her board in her room and she knows when the facility is open and has communicated with the counseling center before- pt agreeable. at end of conversation- pt not using profanity, voice is lowered and calm. text to md regarding pt c/o and concerns.
[2017-08-20] MEDS: DULoxetine Hcl 30 MG Capsule 90 MG PO (10:38)
[2017-08-20] MEDS: Acetaminophen 325 MG Tablet 650 MG PO ×2 (10:38→23:04)
[2017-08-20] MEDS: guaiFENesin 600 MG Tablet PO ×2 (10:39→21:39)
[2017-08-20] MEDS: Famotidine 20 MG Tablet PO ×2 (10:39→21:39)
[2017-08-20] MEDS: Nicotine Polacrilex 2 MG GUM PO (10:39)
[2017-08-20] MEDS: guaiFENesin Dm 10 ML UDC PO ×2 (10:39→23:04)
[2017-08-20 12:15] LABS: Bedside Glucose 237 mg/dL (70-110)
[2017-08-20] MEDS: 0.9% NaCl Peripheral Flush Adult/Peds IV (14:58)
[2017-08-20 17:11] LABS: Bedside Glucose 236 mg/dL (70-110)
[2017-08-20] MEDS: tiZANidine HCl 2 MG Tablet PO (21:39)
[2017-08-20] MEDS: Nortriptyline 10 MG Capsule PO (21:39)
[2017-08-20] MEDS: Loratadine 10 MG Tablet PO (21:40)
[2017-08-20 22:41] LABS: Bedside Glucose 223 mg/dL (70-110)
[2017-08-20] MEDS: Zolpidem Tartrate 5 MG Tablet PO (23:04)
[2017-08-21] VITALS (12 sets, daily range): BP systolic 123–134; BP diastolic 70–88; PULSE 78–99; RESP 10–22; TEMP 36.4–36.9; O2SAT 94–99
[2017-08-21 06:50] LABS: Bedside Glucose 166 mg/dL (70-110)
[2017-08-21] MEDS: Ipratropium/Albuterol Sulfate 3 ML AMPUL.NEB INHALATION ×4 (06:57→20:09)
--- NOTE | 2017-08-21 08:02 | PCM.PROGNOTE ---
Patient Problems: Active and Suspected Problems Acute respiratory failure with hypoxia (Acute) Suspected sleep apnea (Acute) Subjective: Patient did well overnight. No acute issues were reported. Patient has been able to be weaned to nasal cannula oxygen and was happy to take a shower. Patient continues to report a cough productive of thick yellow sputum. No chest pain is reported at this time. Patient does report dyspnea on exertion. - Physical Exam General: Alert, Oriented x3, Cooperative, No apparent distress, - - Morbidly obese. Speaking in full sentences. HEENT: Atraumatic, PERRLA, EOMI, Normocephalic, - - No scleral icterus or injection noted. Oral: Moist Mucosa, No Gingival or Mucosal Lesions/ Ulcerations Neck: Supple, No JVD, No Nodes, Trachea Midline, - - JVD difficult to assess secondary to body habitus Lungs: No rhonchi, No rales, Diminished, Wheezes, - - Symmetric expansion. No dullness to percussion. Cardiovascular: Regular rate, Regular Rhythm, Normal S1, Normal S2, No murmurs, No rub noted, No Gallop, - - Distant heart sounds secondary to body habitus Abdomen: Bowel Sounds Present, Soft, Non Tender, Non-Distended, Obese Extremities: No clubbing, No cyanosis, Edema - Trace lower extremity Skin: - - No significant changes compared to previous Musculoskeletal: No Tenderness to Palpation of Joints or Extremities Lymphatic: No Cervical, Supraclavicular, or Inguinal Adenopathy Neurological: Cranial nerves II-XII grossly intact, Neuro grossly intact, Motor Exam 5/5 strength throughout Psych/Mental Status: Flat Affect, Restless Vital Signs Temp Pulse Resp BP Pulse Ox 36.4 C L 88 22 H 133/88 H 96 08/21/17 03:36 08/21/17 03:36 08/21/17 03:36 08/21/17 03:36 08/21/17 03:36 Oxygen Flow Rate (L/min) 5 Oxygen Delivery Method Nasal Cannula Weight: 139.5 kg Body Mass Index (BMI) 52.7 Intake and Output for Last 24 Hours 08/19/17 08/20/17 08/21/17 23:59 23:59 23:59 Intake Total 1300 / 1300 300 / 300 400 / 400 Output Total Balance 1299 / 1299 300 / 300 400 / 400 Microbiology Past 72 Hours 08/18/17 14:01 Respiratory Panel (PCR) - Final Mucosa - Nose Human [place] POC Glucose 08/21/17 08/20/17 08/20/17 06:34 21:38 16:51 POC Glucose 166 H 223 H 236 H 08/20/17 12:01 POC Glucose 237 H Medical Necessity - Tobacco Use Smoking Status: Heavy Smoker (>10/day) - [id number] history Tobacco Use: Cigarettes Assessment/Plan Active and Suspected Problems Acute respiratory failure with hypoxia (Acute) Suspected sleep apnea (Acute) RECOMMENDATIONS 1. Wean oxygen supplementation to keep saturations greater than 89% 2. Encourage incentive spirometer and Acapella 3. Increase activity as tolerated, mobilize patient 4. Continue scheduled and PRN bronchodilators, mucolytics 5. Continue cough suppressant, increase mucolytic 6. No indication for antibiotics at this time 7. Ambulatory pulse ox prior to discharge 8. Anticipate discharge when patient can be ambulated on 5 L or less and maintain a saturation greater than 89% IMPRESSIONS 1. Acute hypoxic respiratory failure secondary to human metapneumovirus/self-reported asthma Patient with some improvement today compared to previous. Still requiring significant nasal cannula oxygen to maintain saturations. Stressed to the patient the importance of pulmonary toileting and incentive spirometer. Also discussed with the patient about the need for ambulation. Would likely continue IV steroids given patient's volume of distribution until able to be discharged. At that time, we will likely complete a 12 day prednisone taper given the unclear etiology of her obstructive lung disease. 2. Suspected sleep apnea Patient has multiple risk factors, including her weight, body habitus, and daytime symptoms. She would benefit from outpatient polysomnogram. 3. Morbid obesity/tobacco abuse Complicates care, management, recovery, and prognosis. Resume home medications as indicated. Patient was counseled on smoking cessation but declines. Thank you for the opportunity to participate in this patient's care, please do not hesitate contact us with any further questions or concerns. This note was generated with [employer] dictation software. It may contain incorrect words, spelling, and punctuation that were not noted in checking the note before signing. Code Visit Inpatient E&M: 22184 [facility] L2
--- NOTE | 2017-08-21 08:08 | PN_ITS ---
Patient Problems: Active and Suspected Problems Acute respiratory failure with hypoxia (Acute) Suspected sleep apnea (Acute) Subjective: Patient did well overnight. No acute issues were reported. Patient has been able to be weaned to nasal cannula oxygen and was happy to take a shower. Patient continues to report a cough productive of thick yellow sputum. No chest pain is reported at this time. Patient does report dyspnea on exertion. - Physical Exam General: Alert, Oriented x3, Cooperative, No apparent distress, - - Morbidly obese. Speaking in full sentences. HEENT: Atraumatic, PERRLA, EOMI, Normocephalic, - - No scleral icterus or injection noted. Oral: Moist Mucosa, No Gingival or Mucosal Lesions/ Ulcerations Neck: Supple, No JVD, No Nodes, Trachea Midline, - - JVD difficult to assess secondary to body habitus Lungs: No rhonchi, No rales, Diminished, Wheezes, - - Symmetric expansion. No dullness to percussion. Cardiovascular: Regular rate, Regular Rhythm, Normal S1, Normal S2, No murmurs, No rub noted, No Gallop, - - Distant heart sounds secondary to body habitus Abdomen: Bowel Sounds Present, Soft, Non Tender, Non-Distended, Obese Extremities: No clubbing, No cyanosis, Edema - Trace lower extremity Skin: - - No significant changes compared to previous Musculoskeletal: No Tenderness to Palpation of Joints or Extremities Lymphatic: No Cervical, Supraclavicular, or Inguinal Adenopathy Neurological: Cranial nerves II-XII grossly intact, Neuro grossly intact, Motor Exam 5/5 strength throughout Psych/Mental Status: Flat Affect, Restless Vital Signs Temp Pulse Resp BP Pulse Ox 36.4 C L 88 22 H 133/88 H 96 08/21/17 03:36 08/21/17 03:36 08/21/17 03:36 08/21/17 03:36 08/21/17 03:36 Oxygen Flow Rate (L/min) 5 Oxygen Delivery Method Nasal Cannula Weight: 139.5 kg Body Mass Index (BMI) 52.7 Intake and Output for Last 24 Hours 08/19/17 08/20/17 08/21/17 23:59 23:59 23:59 Intake Total 1300 / 1300 300 / 300 400 / 400 Output Total Balance 1299 / 1299 300 / 300 400 / 400 Microbiology Past 72 Hours 08/18/17 14:01 Respiratory Panel (PCR) - Final Mucosa - Nose Human [place] POC Glucose 08/21/17 08/20/17 08/20/17 06:34 21:38 16:51 POC Glucose 166 H 223 H 236 H 08/20/17 12:01 POC Glucose 237 H Medical Necessity - Tobacco Use Smoking Status: Heavy Smoker (>10/day) - [id number] history Tobacco Use: Cigarettes Assessment/Plan Active and Suspected Problems Acute respiratory failure with hypoxia (Acute) Suspected sleep apnea (Acute) RECOMMENDATIONS 1. Wean oxygen supplementation to keep saturations greater than 89% 2. Encourage incentive spirometer and Acapella 3. Increase activity as tolerated, mobilize patient 4. Continue scheduled and PRN bronchodilators, mucolytics 5. Continue cough suppressant, increase mucolytic 6. No indication for antibiotics at this time 7. Ambulatory pulse ox prior to discharge 8. Anticipate discharge when patient can be ambulated on 5 L or less and maintain a saturation greater than 89% IMPRESSIONS 1. Acute hypoxic respiratory failure secondary to human metapneumovirus/self -reported asthma Patient with some improvement today compared to previous. Still requiring significant nasal cannula oxygen to maintain saturations. Stressed to the patient the importance of pulmonary toileting and incentive spirometer. Also discussed with the patient about the need for ambulation. Would likely continue IV steroids given patient's volume of distribution until able to be discharged. At that time, we will likely complete a 12 day prednisone taper given the unclear etiology of her obstructive lung disease. 2. Suspected sleep apnea Patient has multiple risk factors, including her weight, body habitus, and daytime symptoms. She would benefit from outpatient polysomnogram. 3. Morbid obesity/tobacco abuse Complicates care, management, recovery, and prognosis. Resume home medications as indicated. Patient was counseled on smoking cessation but declines. Thank you for the opportunity to participate in this patient's care, please do not hesitate contact us with any further questions or concerns. This note was generated with [employer] dictation software. It may contain incorrect words, spelling, and punctuation that were not noted in checking the note before signing. Code Visit Inpatient E&M: 30169 Subs Hosp L2
[2017-08-21] MEDS: DULoxetine Hcl 30 MG Capsule 90 MG PO (10:37)
[2017-08-21] MEDS: Famotidine 20 MG Tablet PO ×2 (10:37→22:25)
[2017-08-21] MEDS: guaiFENesin 1,200 MG Tablet 1200 MG PO ×2 (10:47→22:27)
[2017-08-21 10:51] LABS: Bedside Glucose 287 mg/dL (70-110)
--- NOTE | 2017-08-21 11:41 | PCM.PN.HOSP ---
Patient Problems: Active and Suspected Problems Acute respiratory failure with hypoxia (Acute) Suspected sleep apnea (Acute) Subjective: Patient was seen and examined, looks improved, on 5 L of oxygen as opposed to Venturi mask. Complains of productive cough. Denies any fever or chills. Feels much improved, moods are better. Denies any worsening shortness of breath or chest discomfort. Objective: Physical Exam General: Alert, Oriented x3, Cooperative, morbidly obese, generalised wheezes all over chest. HEENT: Atraumatic, PERRLA, EOMI, - - upper airway wheezes Oral: Moist Mucosa Neck: No JVD, No Nodes, No Nuchal Rigidity, Trachea Midline, Thyroid Normal Size and Texture Lungs: Wheezes Cardiovascular: Regular Rhythm, Normal S1, Normal S2, Tachycardic Abdomen: Soft, Non Tender, Non-Distended, Obese Extremities: - - non tender Musculoskeletal: No Tenderness to Palpation of Joints or Extremities, No Muscle Wasting Psych/Mental Status: Normal Affect, Appropriate Vitals/I&O's: Vital Signs Temp Pulse Resp BP Pulse Ox 98.5 F 86 20 H 134/82 H 95 08/21/17 10:30 08/21/17 11:06 08/21/17 11:06 08/21/17 10:30 08/21/17 10:30 Oxygen Flow Rate (L/min) 5 Oxygen Delivery Method Nasal Cannula Weight: 139.5 kg Body Mass Index (BMI) 52.7 Intake and Output for Last 24 Hours 08/19/17 08/20/17 08/21/17 23:59 23:59 23:59 Intake Total 1300 / 1300 300 / 300 400 / 400 Output Total Balance 1299 / 1299 300 / 300 400 / 400 Microbiology Past 72 Hours 08/18/17 14:01 Mucosa - Nose Respiratory Panel (PCR) - Final Human [place] Laboratory Results 08/20/17 12:01: POC Glucose 237 H 08/20/17 16:51: POC Glucose 236 H 08/20/17 21:38: POC Glucose 223 H 08/21/17 06:34: POC Glucose 166 H 08/21/17 10:42: POC Glucose 287 H Current Medications Acetaminophen (Tylenol) 650 mg PO Q6H PRN PRN PRN Reason: Mild Pain (scale 0-3)/T>100.7 Last Admin: 08/20/17 23:04 Dose: 650 mg Albuterol Sulfate (Ventolin Aerosols) 2.5 mg INHALATION Q2H PRN PRN Reason: WHEEZING Last Admin: 08/20/17 08:24 Dose: 2.5 mg Albuterol/Ipratropium (Duoneb) 3 ml INHALATION Q4HWA.RT [facility] Last Admin: 08/21/17 11:06 Dose: 3 ml Dextrose (D50w Syringe) 0 gm IV X1 PRN; Protocol PRN Reason: Hypoglycemia Docusate Sodium (Colace) 200 mg PO BID PRN PRN PRN Reason: Constipation Duloxetine HCl (Cymbalta) 90 mg PO DAILY [facility] Last Admin: 08/21/17 10:37 Dose: 90 mg Famotidine (Pepcid) 20 mg PO BID [facility] Last Admin: 08/21/17 10:37 Dose: 20 mg Glucagon () 1 mg IM .X1 PRN PRN Reason: Hypoglycemia Guaifenesin (Mucinex) 1,200 mg PO BID [facility] Last Admin: 08/21/17 10:47 Dose: 1,200 mg Heparin Sodium (Porcine) (Heparin Na) 5,000 unit SC TID [facility] Last Admin: 08/21/17 05:09 Dose: Not Given Sodium Chloride () 250 mls @ 15 mls/hr IV .[id number] PRN PRN Reason: SALINE FLUSH Insulin Aspart (Novolog Flexpen (Bkc)) 0 units SC ACHS [facility] PRN Reason: Protocol Last Admin: 08/21/17 10:58 Dose: 3 u Loratadine (Claritin) 10 mg PO DAILY@2200 [facility] Last Admin: 08/20/17 21:40 Dose: 10 mg Magnesium Hydroxide (Milk Of Magnesia) 30 ml PO DAILY PRN PRN PRN Reason: Constipation Methylprednisolone (Solu-Medrol) 40 mg IV Q8 [facility] Last Admin: 08/21/17 06:36 Dose: 40 mg Nicotine (Nicoderm Cq (Pbkc)) 21 mg TRANSDERM. DAILY [facility] Last Admin: 08/21/17 10:47 Dose: Not Given Nicotine Polacrilex (Rugby Nicotine (Bkc)) 2 mg PO Q2H PRN PRN PRN Reason: Nicotine Craving Last Admin: 08/20/17 10:39 Dose: 2 mg Nortriptyline HCl (Pamelor) 10 mg PO DAILY@2200 [facility] Last Admin: 08/20/17 21:39 Dose: 10 mg Ondansetron HCl (Zofran) 4 mg IV Q8H PRN PRN PRN Reason: Nausea Sodium Chloride () 5 - 30 ml IV UD PRN PRN Reason: SALINE FLUSH Last Admin: 08/20/17 14:58 Dose: 10 ml Throat Lozenges (Cepacol Sore Throat Lozenge) 1 lozenge MUCOUS MEM PRN PRN PRN Reason: PAIN Tizanidine HCl (Zanaflex) 2 mg PO DAILY@2200 [facility] Last Admin: 08/20/17 21:39 Dose: 2 mg Zolpidem Tartrate (Ambien (Generic)) 5 mg PO QHS PRN PRN Reason: SLEEP Last Admin: 08/20/17 23:04 Dose: 5 mg Medical Necessity - Tobacco Use Smoking Status: Heavy Smoker (>10/day) - [id number] history Tobacco Use: Cigarettes Assessment/Plan Active and Suspected Problems Acute respiratory failure with hypoxia (Acute) Suspected sleep apnea (Acute) 37-year-old with past medical history of mild intermittent asthma, admitted on 08/17/17 with cough and wheezing with reactive airway issues/active wheezing exertional hypoxemia in the setting of viral bronchitis and inhalational lung injury. 1. Acute hypoxic respiratory insufficiency secondary to #2, proven, on 5 L of oxygen, continue to attempt to wean off for SPO2 more than 94%, continue breathing treatment. Pulmonology following, 2. Acute asthma exacerbation/human metpneumo viral bronchitis/inhalation injury(from Marijuana),? additives in the marijuana inhaled, on high flow oxygen, IV steroids, breathing treatment, droplet isolation 2. Super morbid obesity, weight loss, diet recommended, needs referral for evaluation for possible bariatric surgery 3. Insomnia, on zolpidem at bedtime as needed 4. Osteoarthritis 5. Hyperglycemia, HbA1c is 6.3, BS are uncontrolled secondary to steroids, will switch to high-dose NovoLog insulin sliding scale. 6. Polysubstance use, marijuana, nicotine, advised to quit, nicotine patch and gum given. 7. DVT PPx- Heparin SC TID- Code Visit Inpatient E&M: 58317 Subs Hosp L2
--- NOTE | 2017-08-21 11:44 | PN_ITS ---
Patient Problems: Active and Suspected Problems Acute respiratory failure with hypoxia (Acute) Suspected sleep apnea (Acute) Subjective: Patient was seen and examined, looks improved, on 5 L of oxygen as opposed to Venturi mask. Complains of productive cough. Denies any fever or chills. Feels much improved, moods are better. Denies any worsening shortness of breath or chest discomfort. Objective: Physical Exam General: Alert, Oriented x3, Cooperative, morbidly obese, generalised wheezes all over chest. HEENT: Atraumatic, PERRLA, EOMI, - - upper airway wheezes Oral: Moist Mucosa Neck: No JVD, No Nodes, No Nuchal Rigidity, Trachea Midline, Thyroid Normal Size and Texture Lungs: Wheezes Cardiovascular: Regular Rhythm, Normal S1, Normal S2, Tachycardic Abdomen: Soft, Non Tender, Non-Distended, Obese Extremities: - - non tender Musculoskeletal: No Tenderness to Palpation of Joints or Extremities, No Muscle Wasting Psych/Mental Status: Normal Affect, Appropriate Vitals/I&O's: Vital Signs Temp Pulse Resp BP Pulse Ox 98.5 F 86 20 H 134/82 H 95 08/21/17 10:30 08/21/17 11:06 08/21/17 11:06 08/21/17 10:30 08/21/17 10:30 Oxygen Flow Rate (L/min) 5 Oxygen Delivery Method Nasal Cannula Weight: 139.5 kg Body Mass Index (BMI) 52.7 Intake and Output for Last 24 Hours 08/19/17 08/20/17 08/21/17 23:59 23:59 23:59 Intake Total 1300 / 1300 300 / 300 400 / 400 Output Total Balance 1299 / 1299 300 / 300 400 / 400 Microbiology Past 72 Hours 08/18/17 14:01 Mucosa - Nose Respiratory Panel (PCR) - Final Human [place] Laboratory Results 08/20/17 12:01: POC Glucose 237 H 08/20/17 16:51: POC Glucose 236 H 08/20/17 21:38: POC Glucose 223 H 08/21/17 06:34: POC Glucose 166 H 08/21/17 10:42: POC Glucose 287 H Current Medications Acetaminophen (Tylenol) 650 mg PO Q6H PRN PRN PRN Reason: Mild Pain (scale 0-3)/T>100.7 Last Admin: 08/20/17 23:04 Dose: 650 mg Albuterol Sulfate (Ventolin Aerosols) 2.5 mg INHALATION Q2H PRN PRN Reason: WHEEZING Last Admin: 08/20/17 08:24 Dose: 2.5 mg Albuterol/Ipratropium (Duoneb) 3 ml INHALATION Q4HWA.RT [facility] Last Admin: 08/21/17 11:06 Dose: 3 ml Dextrose (D50w Syringe) 0 gm IV X1 PRN; Protocol PRN Reason: Hypoglycemia Docusate Sodium (Colace) 200 mg PO BID PRN PRN PRN Reason: Constipation Duloxetine HCl (Cymbalta) 90 mg PO DAILY [facility] Last Admin: 08/21/17 10:37 Dose: 90 mg Famotidine (Pepcid) 20 mg PO BID [facility] Last Admin: 08/21/17 10:37 Dose: 20 mg Glucagon () 1 mg IM .X1 PRN PRN Reason: Hypoglycemia Guaifenesin (Mucinex) 1,200 mg PO BID [facility] Last Admin: 08/21/17 10:47 Dose: 1,200 mg Heparin Sodium (Porcine) (Heparin Na) 5,000 unit SC TID [facility] Last Admin: 08/21/17 05:09 Dose: Not Given Sodium Chloride () 250 mls @ 15 mls/hr IV .[id number] PRN PRN Reason: SALINE FLUSH Insulin Aspart (Novolog Flexpen (Bkc)) 0 units SC ACHS [facility] PRN Reason: Protocol Last Admin: 08/21/17 10:58 Dose: 3 u Loratadine (Claritin) 10 mg PO DAILY@2200 [facility] Last Admin: 08/20/17 21:40 Dose: 10 mg Magnesium Hydroxide (Milk Of Magnesia) 30 ml PO DAILY PRN PRN PRN Reason: Constipation Methylprednisolone (Solu-Medrol) 40 mg IV Q8 [facility] Last Admin: 08/21/17 06:36 Dose: 40 mg Nicotine (Nicoderm Cq (Pbkc)) 21 mg TRANSDERM. DAILY [facility] Last Admin: 08/21/17 10:47 Dose: Not Given Nicotine Polacrilex (Rugby Nicotine (Bkc)) 2 mg PO Q2H PRN PRN PRN Reason: Nicotine Craving Last Admin: 08/20/17 10:39 Dose: 2 mg Nortriptyline HCl (Pamelor) 10 mg PO DAILY@2200 [facility] Last Admin: 08/20/17 21:39 Dose: 10 mg Ondansetron HCl (Zofran) 4 mg IV Q8H PRN PRN PRN Reason: Nausea Sodium Chloride () 5 - 30 ml IV UD PRN PRN Reason: SALINE FLUSH Last Admin: 08/20/17 14:58 Dose: 10 ml Throat Lozenges (Cepacol Sore Throat Lozenge) 1 lozenge MUCOUS MEM PRN PRN PRN Reason: PAIN Tizanidine HCl (Zanaflex) 2 mg PO DAILY@2200 [facility] Last Admin: 08/20/17 21:39 Dose: 2 mg Zolpidem Tartrate (Ambien (Generic)) 5 mg PO QHS PRN PRN Reason: SLEEP Last Admin: 08/20/17 23:04 Dose: 5 mg Medical Necessity - Tobacco Use Smoking Status: Heavy Smoker (>10/day) - [id number] history Tobacco Use: Cigarettes Assessment/Plan Active and Suspected Problems Acute respiratory failure with hypoxia (Acute) Suspected sleep apnea (Acute) 37-year-old with past medical history of mild intermittent asthma, admitted on with cough and wheezing with reactive airway issues/active wheezing exertional hypoxemia in the setting of viral bronchitis and inhalational lung injury. 1. Acute hypoxic respiratory insufficiency secondary to #2, proven, on 5 L of oxygen, continue to attempt to wean off for SPO2 more than 94%, continue breathing treatment. Pulmonology following, 2. Acute asthma exacerbation/human metpneumo viral bronchitis/inhalation injury (from Marijuana),? additives in the marijuana inhaled, on high flow oxygen, IV steroids, breathing treatment, droplet isolation 2. Super morbid obesity, weight loss, diet recommended, needs referral for evaluation for possible bariatric surgery 3. Insomnia, on zolpidem at bedtime as needed 4. Osteoarthritis 5. Hyperglycemia, HbA1c is 6.3, BS are uncontrolled secondary to steroids, will switch to high-dose NovoLog insulin sliding scale. 6. Polysubstance use, marijuana, nicotine, advised to quit, nicotine patch and gum given. 7. DVT PPx- Heparin SC TID- Code Visit Inpatient E&M: 87319 Subs Hosp L2
[2017-08-21] MEDS: 0.9% NaCl Peripheral Flush Adult/Peds IV ×2 (16:23→22:23)
[2017-08-21 16:45] LABS: Bedside Glucose 218 mg/dL (70-110)
--- NOTE | 2017-08-21 21:22 | CPS ---
Tx given late d/t RT assisted ICU pt to CT scan.
[2017-08-21] MEDS: tiZANidine HCl 2 MG Tablet PO (22:25)
[2017-08-21] MEDS: Nortriptyline 10 MG Capsule PO (22:25)
[2017-08-21] MEDS: Loratadine 10 MG Tablet PO (22:25)
[2017-08-21 23:01] LABS: Bedside Glucose 253 mg/dL (70-110)
[2017-08-22] VITALS (17 sets, daily range): BP systolic 118–159; BP diastolic 68–86; PULSE 80–107; RESP 18–20; TEMP 36–37; O2SAT 88–96
[2017-08-22] MEDS: Zolpidem Tartrate 5 MG Tablet PO (00:09)
[2017-08-22] MEDS: 0.9% NaCl Peripheral Flush Adult/Peds IV ×3 (06:31→22:05)
[2017-08-22] MEDS: Ipratropium/Albuterol Sulfate 3 ML AMPUL.NEB INHALATION ×4 (06:47→22:45)
[2017-08-22 06:57] LABS: Differential Indicated MANUAL DIFF; Hematocrit 46.1 % (37-47); Hemoglobin 14.3 g/dl (12.0-15.0); Mean Corpuscular Hgb 29.2 pg (27.0-32.0); Mean Corpuscular Volume 94.1 fL (81-99); Mean Platelet Vol. 8.9 fl (6.2-12.0); POSITIVE COUNT YES; POSITIVE DIFFERENTIAL NO; POSITIVE MORPHOLOGY YES; Platelet Count 305 K/mm3 (150-450); RBC Distribution Width CV 14.4 % (11.6-14.6); RBC Distribution Width SD 47.8 fl (35.1-43.9); White Blood Count 18.1 K/mm3 (4.4-11.0)
[2017-08-22 07:17] LABS: Anion Gap 7 (5-15); BUN 17 mg/dL (7-18); Calcium,Total 8.8 mg/dL (8.5-10.1); Chloride 99 mmol/L (98-107); Creatinine, Serum 0.85 mg/dL (0.55-1.02); EST Glomerular Filtration Rate 79 mL/min (>60); Est Glom Filt Rate - Afr Amer 96 mL/min (>60); Estimated Creatinine Clearance 76.73 ml/min; Glucose 169 mg/dL (74-106); Potassium 4.8 mmol/L (3.5-5.1); Sodium Level 136 mmol/L (136-145)
[2017-08-22 07:36] LABS: Lymphocyte 21 % (19-41); Metamyelocyte 2 % (0-1); Monocyte 3 % (0-10); Neutrophil-Band 1 % (0-5); Neutrophil-Segmented 73 % (47-70); Total Cells Counted 100 (MANUAL DIFF)
[2017-08-22 07:37] LABS: Platelet Estimate ADEQUATE (ADEQ); Red Cell Morphology NORM C+C NORMAL (NORM C&C)
[2017-08-22 07:38] LABS: Absolute Neutrophil Count 13.4 X10^3/uL (2.0-7.7)
[2017-08-22] MEDS: DULoxetine Hcl 30 MG Capsule 90 MG PO (09:21)
[2017-08-22] MEDS: Famotidine 20 MG Tablet PO ×2 (09:22→22:01)
[2017-08-22] MEDS: guaiFENesin 1,200 MG Tablet 1200 MG PO ×2 (09:23→22:02)
--- NOTE | 2017-08-22 09:48 | NURSING ---
aviation electronic warfare operator, Whitley, obtained larger recliner for pt. Pt assisted to sit up in recliner. Pt currently on 3L NC. IS encouraged, pt demonstrated proper use. Call light in reach. No further needs at this time.
--- NOTE | 2017-08-22 10:06 | PCM.PN.HOSP ---
Patient Problems: Active and Suspected Problems Acute respiratory failure with hypoxia (Acute) Suspected sleep apnea (Acute) Subjective: Patient was seen and examined. She is fast asleep. No acute events overnight. Aware that she is on 2 L of oxygen. Audible wheezes heard at the bedside. Objective: Physical Exam General: Alert, Oriented x3, Cooperative, morbidly obese, generalised wheezes all over chest. HEENT: Atraumatic, PERRLA, EOMI, - - upper airway wheezes Oral: Moist Mucosa Neck: No JVD, No Nodes, No Nuchal Rigidity, Trachea Midline, Thyroid Normal Size and Texture Lungs: Wheezes Cardiovascular: Regular Rhythm, Normal S1, Normal S2, Tachycardic Abdomen: Soft, Non Tender, Non-Distended, Obese Extremities: - - non tender Musculoskeletal: No Tenderness to Palpation of Joints or Extremities, No Muscle Wasting Psych/Mental Status: Normal Affect, Appropriate Vitals/I&O's: Vital Signs Temp Pulse Resp BP Pulse Ox 97.7 F L 87 20 H 118/72 92 08/22/17 09:37 08/22/17 09:37 08/22/17 09:37 08/22/17 09:37 08/22/17 09:37 Oxygen Flow Rate (L/min) 3 Oxygen Delivery Method Nasal Cannula Weight: 139.5 kg Body Mass Index (BMI) 52.7 Intake and Output for Last 24 Hours 08/20/17 08/21/17 08/22/17 23:59 23:59 23:59 Intake Total 300 / 300 400 / 400 800 / 800 Balance 300 / 300 400 / 400 800 / 800 Microbiology Past 72 Hours 08/18/17 14:01 Mucosa - Nose Respiratory Panel (PCR) - Final Human [place] Laboratory Results 08/21/17 10:42: POC Glucose 287 H 08/21/17 16:32: POC Glucose 218 H 08/21/17 22:18: POC Glucose 253 H 08/22/17 06:35: WBC 18.1 H, RBC 4.90, Hgb 14.3, Hct 46.1, MCV 94.1, MCH 29.2, MCHC 31.0 L, RDW 14.4, RDW Differential 47.8 H, Plt Count 305, MPV 8.9, Neut % (Auto) Not Reportable, Absolute Neuts (auto) 13.4 H, Absolute Lymphs (auto) 3.80, Total Counted 100, Neutrophils % (Manual) 73 H, Band Neutrophils % 1, Lymphocytes % (Manual) 21, Monocytes % (Manual) 3, Metamyelocytes % 2 H, Diff Path Review September, Platelet Estimate ADEQUATE, RBC Morphology NORM C+C 08/22/17 06:35: Sodium 136, Potassium 4.8, Chloride 99, Carbon Dioxide 30.0, Anion Gap 7, BUN 17, Creatinine 0.85, Estim Creat Clear Calc 76.73, Est GFR (MDRD) Af Amer 96, Est GFR (MDRD) Non-Af 79, BUN/Creatinine Ratio 20.0, Glucose 169 H, Calcium 8.8 Current Medications Acetaminophen (Tylenol) 650 mg PO Q6H PRN PRN PRN Reason: Mild Pain (scale 0-3)/T>100.7 Last Admin: 08/20/17 23:04 Dose: 650 mg Albuterol Sulfate (Ventolin Aerosols) 2.5 mg INHALATION Q2H PRN PRN Reason: WHEEZING Last Admin: 08/20/17 08:24 Dose: 2.5 mg Albuterol/Ipratropium (Duoneb) 3 ml INHALATION Q4HWA.RT [facility] Last Admin: 08/22/17 06:47 Dose: 3 ml Dextrose (D50w Syringe) 0 gm IV X1 PRN; Protocol PRN Reason: Hypoglycemia Docusate Sodium (Colace) 200 mg PO BID PRN PRN PRN Reason: Constipation Duloxetine HCl (Cymbalta) 90 mg PO DAILY [facility] Last Admin: 08/22/17 09:21 Dose: 90 mg Famotidine (Pepcid) 20 mg PO BID [facility] Last Admin: 08/22/17 09:22 Dose: 20 mg Glucagon () 1 mg IM .X1 PRN PRN Reason: Hypoglycemia Guaifenesin (Mucinex) 1,200 mg PO BID [facility] Last Admin: 08/22/17 09:23 Dose: 1,200 mg Heparin Sodium (Porcine) (Heparin Na) 5,000 unit SC TID [facility] Last Admin: 08/22/17 06:31 Dose: Not Given Sodium Chloride () 250 mls @ 15 mls/hr IV .[id number] PRN PRN Reason: SALINE FLUSH Insulin Aspart (Novolog Flexpen (Bkc)) 0 units SC ACHS [facility] PRN Reason: Protocol Last Admin: 08/22/17 06:37 Dose: 3 u Loratadine (Claritin) 10 mg PO DAILY@0 [facility] Last Admin: 08/21/17 22:25 Dose: 10 mg Magnesium Hydroxide (Milk Of Magnesia) 30 ml PO DAILY PRN PRN PRN Reason: Constipation Methylprednisolone (Solu-Medrol) 40 mg IV Q8 [facility] Last Admin: 08/22/17 06:31 Dose: 40 mg Nicotine (Nicoderm Cq (Pbkc)) 21 mg TRANSDERM. DAILY [facility] Last Admin: 08/22/17 09:21 Dose: 21 mg Nicotine Polacrilex (Rugby Nicotine (Bkc)) 2 mg PO Q2H PRN PRN PRN Reason: Nicotine Craving Last Admin: 08/20/17 10:39 Dose: 2 mg Nortriptyline HCl (Pamelor) 10 mg PO DAILY@2200 [facility] Last Admin: 08/21/17 22:25 Dose: 10 mg Ondansetron HCl (Zofran) 4 mg IV Q8H PRN PRN PRN Reason: Nausea Sodium Chloride () 5 - 30 ml IV UD PRN PRN Reason: SALINE FLUSH Last Admin: 08/22/17 06:31 Dose: 10 ml Throat Lozenges (Cepacol Sore Throat Lozenge) 1 lozenge MUCOUS MEM PRN PRN PRN Reason: PAIN Tizanidine HCl (Zanaflex) 2 mg PO DAILY@2200 [facility] Last Admin: 08/21/17 22:25 Dose: 2 mg Zolpidem Tartrate (Ambien (Generic)) 5 mg PO QHS PRN PRN Reason: SLEEP Last Admin: 08/22/17 00:09 Dose: 5 mg Medical Necessity - Tobacco Use Smoking Status: Heavy Smoker (>10/day) - [id number] history Tobacco Use: Cigarettes Assessment/Plan Active and Suspected Problems Acute respiratory failure with hypoxia (Acute) Suspected sleep apnea (Acute) 37-year-old with past medical history of mild intermittent asthma, admitted on 08/17/17 with cough and wheezing with reactive airway issues/active wheezing exertional hypoxemia in the setting of viral bronchitis and inhalational lung injury. 1. Acute hypoxic respiratory insufficiency secondary to #2, improving, now on 2 L of oxygen, will continue to wean off oxygen for SPO2 more than 94%, will continue breathing treatments, incentive spirometer, and evaluate for ambulatory oxygen tomorrow morning. 2. Acute asthma exacerbation/human metpneumo viral bronchitis/inhalation injury(from Marijuana),? additives in the marijuana inhaled, is in droplet isolation, will continue on IV steroids, breathing treatments, possible transition to p.o. prednisone from tomorrow. 2. Super morbid obesity, weight loss, diet recommended, needs referral for evaluation for possible bariatric surgery 3. Insomnia, on zolpidem at bedtime as needed 4. Osteoarthritis 5. Hyperglycemia, HbA1c is 6.3, BS are uncontrolled secondary to steroids, on insulin sliding scale high dose protocol, continue to monitor 6. Polysubstance use, marijuana, nicotine, advised to quit, nicotine patch and gum given. 7. DVT PPx- Heparin SC TID 8. Disposition: Possible discharge in a.m. if improved, will need evaluation for ambulatory oxygen Code Visit Inpatient E&M: 67636 Subs Hosp L2
--- NOTE | 2017-08-22 10:10 | PN_ITS ---
Patient Problems: Active and Suspected Problems Acute respiratory failure with hypoxia (Acute) Suspected sleep apnea (Acute) Subjective: Patient was seen and examined. She is fast asleep. No acute events overnight. Aware that she is on 2 L of oxygen. Audible wheezes heard at the bedside. Objective: Physical Exam General: Alert, Oriented x3, Cooperative, morbidly obese, generalised wheezes all over chest. HEENT: Atraumatic, PERRLA, EOMI, - - upper airway wheezes Oral: Moist Mucosa Neck: No JVD, No Nodes, No Nuchal Rigidity, Trachea Midline, Thyroid Normal Size and Texture Lungs: Wheezes Cardiovascular: Regular Rhythm, Normal S1, Normal S2, Tachycardic Abdomen: Soft, Non Tender, Non-Distended, Obese Extremities: - - non tender Musculoskeletal: No Tenderness to Palpation of Joints or Extremities, No Muscle Wasting Psych/Mental Status: Normal Affect, Appropriate Vitals/I&O's: Vital Signs Temp Pulse Resp BP Pulse Ox 97.7 F L 87 20 H 118/72 92 08/22/17 09:37 08/22/17 09:37 08/22/17 09:37 08/22/17 09:37 08/22/17 09:37 Oxygen Flow Rate (L/min) 3 Oxygen Delivery Method Nasal Cannula Weight: 139.5 kg Body Mass Index (BMI) 52.7 Intake and Output for Last 24 Hours 08/20/17 08/21/17 08/22/17 23:59 23:59 23:59 Intake Total 300 / 300 400 / 400 800 / 800 Balance 300 / 300 400 / 400 800 / 800 Microbiology Past 72 Hours 08/18/17 14:01 Mucosa - Nose Respiratory Panel (PCR) - Final [facility] [place] [facility] Results 08/21/17 10:42: POC Glucose 287 H 08/21/17 16:32: POC Glucose 218 H 08/21/17 22:18: POC Glucose 253 H 08/22/17 06:35: WBC 18.1 H, RBC 4.90, Hgb 14.3, Hct 46.1, MCV 94.1, MCH 29.2, MCHC 31.0 L, RDW 14.4, RDW Differential 47.8 H, Plt Count 305, MPV 8.9, Neut % ( Auto) Not Reportable, Absolute Neuts (auto) 13.4 H, Absolute Lymphs (auto) 3.80 , Total Counted 100, Neutrophils % (Manual) 73 H, Band Neutrophils % 1, Lymphocytes % (Manual) 21, Monocytes % (Manual) 3, Metamyelocytes % 2 H, Diff Path Review September, Platelet Estimate ADEQUATE, RBC Morphology NORM C+C 08/22/17 06:35: Sodium 136, Potassium 4.8, Chloride 99, Carbon Dioxide 30.0, Anion Gap 7, BUN 17, Creatinine 0.85, Estim Creat Clear Calc 76.73, Est GFR ( MDRD) Af Amer 96, Est GFR (MDRD) Non-Af 79, BUN/Creatinine Ratio 20.0, Glucose 169 H, Calcium 8.8 Current Medications Acetaminophen (Tylenol) 650 mg PO Q6H PRN PRN PRN Reason: Mild Pain (scale 0-3)/T>100.7 Last Admin: 08/20/17 23:04 Dose: 650 mg Albuterol Sulfate (Ventolin Aerosols) 2.5 mg INHALATION Q2H PRN PRN Reason: WHEEZING Last Admin: 08/20/17 08:24 Dose: 2.5 mg Albuterol/Ipratropium (Duoneb) 3 ml INHALATION Q4HWA.RT [facility] Last Admin: 08/22/17 06:47 Dose: 3 ml Dextrose (D50w Syringe) 0 gm IV X1 PRN; Protocol PRN Reason: Hypoglycemia Docusate Sodium (Colace) 200 mg PO BID PRN PRN PRN Reason: Constipation Duloxetine HCl (Cymbalta) 90 mg PO DAILY [facility] Last Admin: 08/22/17 09:21 Dose: 90 mg Famotidine (Pepcid) 20 mg PO BID [facility] Last Admin: 08/22/17 09:22 Dose: 20 mg Glucagon () 1 mg IM .X1 PRN PRN Reason: Hypoglycemia Guaifenesin (Mucinex) 1,200 mg PO BID [facility] Last Admin: 08/22/17 09:23 Dose: 1,200 mg Heparin Sodium (Porcine) (Heparin Na) 5,000 unit SC TID [facility] Last Admin: 08/22/17 06:31 Dose: Not Given Sodium Chloride () 250 mls @ 15 mls/hr IV .[id number] PRN PRN Reason: SALINE FLUSH Insulin Aspart (Novolog Flexpen (Bkc)) 0 units SC ACHS [facility] PRN Reason: Protocol Last Admin: 08/22/17 06:37 Dose: 3 u Loratadine (Claritin) 10 mg PO DAILY@0 [facility] Last Admin: 08/21/17 22:25 Dose: 10 mg Magnesium Hydroxide (Milk Of Magnesia) 30 ml PO DAILY PRN PRN PRN Reason: Constipation Methylprednisolone (Solu-Medrol) 40 mg IV Q8 [facility] Last Admin: 08/22/17 06:31 Dose: 40 mg Nicotine (Nicoderm Cq (Pbkc)) 21 mg TRANSDERM. DAILY [facility] Last Admin: 08/22/17 09:21 Dose: 21 mg Nicotine Polacrilex ([place] Nicotine (Bkc)) 2 mg PO Q2H PRN PRN PRN Reason: Nicotine Craving Last Admin: 08/20/17 10:39 Dose: 2 mg Nortriptyline HCl (Pamelor) 10 mg PO DAILY@2200 [facility] Last Admin: 08/21/17 22:25 Dose: 10 mg Ondansetron HCl (Zofran) 4 mg IV Q8H PRN PRN PRN Reason: Nausea Sodium Chloride () 5 - 30 ml IV UD PRN PRN Reason: SALINE FLUSH Last Admin: 08/22/17 06:31 Dose: 10 ml Throat Lozenges (Cepacol Sore Throat Lozenge) 1 lozenge MUCOUS MEM PRN PRN PRN Reason: PAIN Tizanidine HCl (Zanaflex) 2 mg PO DAILY@2200 [facility] Last Admin: 08/21/17 22:25 Dose: 2 mg Zolpidem Tartrate (Ambien (Generic)) 5 mg PO QHS PRN PRN Reason: SLEEP Last Admin: 08/22/17 00:09 Dose: 5 mg Medical Necessity - Tobacco Use Smoking Status: Heavy Smoker (>10/day) - [id number] history Tobacco Use: Cigarettes Assessment/Plan Active and Suspected Problems Acute respiratory failure with hypoxia (Acute) Suspected sleep apnea (Acute) 37-year-old with past medical history of mild intermittent asthma, admitted on with cough and wheezing with reactive airway issues/active wheezing exertional hypoxemia in the setting of viral bronchitis and inhalational lung injury. 1. Acute hypoxic respiratory insufficiency secondary to #2, improving, now on 2 L of oxygen, will continue to wean off oxygen for SPO2 more than 94%, will continue breathing treatments, incentive spirometer, and evaluate for ambulatory oxygen tomorrow morning. 2. Acute asthma exacerbation/human metpneumo viral bronchitis/inhalation injury (from Marijuana),? additives in the marijuana inhaled, is in droplet isolation, will continue on IV steroids, breathing treatments, possible transition to p.o. prednisone from tomorrow. 2. Super morbid obesity, weight loss, diet recommended, needs referral for evaluation for possible bariatric surgery 3. Insomnia, on zolpidem at bedtime as needed 4. Osteoarthritis 5. Hyperglycemia, HbA1c is 6.3, BS are uncontrolled secondary to steroids, on insulin sliding scale high dose protocol, continue to monitor 6. Polysubstance use, marijuana, nicotine, advised to quit, nicotine patch and gum given. 7. DVT PPx- Heparin SC TID 8. Disposition: Possible discharge in a.m. if improved, will need evaluation for ambulatory oxygen Code Visit Inpatient E&M: 73195 Subs Hosp L2
--- NOTE | 2017-08-22 11:06 | PN_ITS ---
Patient Problems: Active and Suspected Problems Acute respiratory failure with hypoxia (Acute) Suspected sleep apnea (Acute) Subjective: Patient subjectively improved compared to previous. Patient is denying any chest pain at this time. Patient continues to have a cough productive of white to yellow sputum. Patient states that it is becoming more pale. Patient's oxygenation has improved compared to yesterday. - Physical Exam General: Alert, Oriented x3, Cooperative, No apparent distress, - - Morbidly obese. Speaking in full sentences. HEENT: Atraumatic, PERRLA, EOMI, Normocephalic, - - No scleral icterus or injection noted. Oral: Moist Mucosa, No Gingival or Mucosal Lesions/ Ulcerations Neck: Supple, No JVD, No Nodes, Trachea Midline Lungs: No rhonchi, No rales, Diminished, Wheezes, - - Symmetric expansion. Improved air exchange compared to yesterday. Cardiovascular: Regular rate, Regular Rhythm, Normal S1, Normal S2, No murmurs, No rub noted, No Gallop Abdomen: Bowel Sounds Present, Soft, Non Tender, Non-Distended, Obese Extremities: No clubbing, No cyanosis, Edema Skin: - - Significant change compared to previous Musculoskeletal: No Tenderness to Palpation of Joints or Extremities Lymphatic: No Cervical, Supraclavicular, or Inguinal Adenopathy Neurological: Cranial nerves II-XII grossly intact, Neuro grossly intact, Motor Exam 5/5 strength throughout Psych/Mental Status: Alert and oriented to time, place, person, mood and affect Vital Signs Temp Pulse Resp BP Pulse Ox 36.5 C L 87 20 H 118/72 92 08/22/17 09:37 08/22/17 09:37 08/22/17 09:37 08/22/17 09:37 08/22/17 09:37 Oxygen Flow Rate (L/min) 3 Oxygen Delivery Method Nasal Cannula Weight: 139.5 kg Body Mass Index (BMI) 52.7 Intake and Output for Last 24 Hours 08/20/17 08/21/17 08/22/17 23:59 23:59 23:59 Intake Total 300 / 300 400 / 400 800 / 800 Balance 300 / 300 400 / 400 800 / 800 Microbiology Past 72 Hours 08/18/17 14:01 Respiratory Panel (PCR) - Final Mucosa - Nose [facility] [place] [facility] Tests Past 24 Hrs 04/08/18 04/08/18 06:35 06:35 WBC 18.1 H RBC 4.90 Hgb 14.3 Hct 46.1 MCV 94.1 MCH 29.2 MCHC 31.0 L RDW 14.4 RDW Differential 47.8 H Plt Count 305 MPV 8.9 Neut % (Auto) Not Reportable Absolute Neuts (auto) 13.4 H Absolute Lymphs (auto) 3.80 Total Counted 100 Neutrophils % (Manual) 73 H Band Neutrophils % 1 Lymphocytes % (Manual) 21 Monocytes % (Manual) 3 Metamyelocytes % 2 H Diff Path Review May foll Platelet Estimate ADEQUATE RBC Morphology NORM C+C Sodium 136 Potassium 4.8 Chloride 99 Carbon Dioxide 30.0 Anion Gap 7 BUN 17 Creatinine 0.85 Estim Creat Clear Calc 76.73 Est GFR (MDRD) Af Amer 96 Est GFR (MDRD) Non-Af 79 BUN/Creatinine Ratio 20.0 Glucose 169 H Calcium 8.8 POC Glucose 08/21/17 08/21/17 22:18 16:32 POC Glucose 253 H 218 H Medical Necessity - Tobacco Use Smoking Status: Heavy Smoker (>10/day) - [id number] history Tobacco Use: Cigarettes Assessment/Plan Active and Suspected Problems Acute respiratory failure with hypoxia (Acute) Suspected sleep apnea (Acute) RECOMMENDATIONS 1. Wean oxygen supplementation to keep saturations greater than 89% 2. Encourage incentive spirometer and Acapella 3. Increase activity as tolerated, mobilize patient 4. Continue scheduled and PRN bronchodilators, mucolytics 5. Transition to prednisone therapy 6. No indication for antibiotics at this time 7. Ambulatory pulse ox prior to discharge 8. Walking oximetry tomorrow IMPRESSIONS 1. Acute hypoxic respiratory failure secondary to human metapneumovirus/self -reported asthma Patient with some improvement today compared to previous. Patient was significant improvement over the last 24 hours. Patient still requiring 2-3 L nasal cannula to maintain saturations. Anticipate underlying asthma with bronchospasm. Will transition patient to prednisone therapy tomorrow. At that time, we will likely complete a 12 day prednisone taper given the unclear etiology of her obstructive lung disease. 2. Suspected sleep apnea Witnessed apneic events noted prior to my evaluation today. Patient has multiple risk factors, including her weight, body habitus, and daytime symptoms. She would benefit from outpatient polysomnogram. 3. Morbid obesity/tobacco abuse Complicates care, management, recovery, and prognosis. Resume home medications as indicated. Patient was counseled on smoking cessation but declines. Thank you for the opportunity to participate in this patient's care, please do not hesitate contact us with any further questions or concerns. This note was generated with [employer] software. It may contain incorrect words, spelling, and punctuation that were not noted in checking the note before signing. Code Visit Inpatient E&M: 66678 Subs Hosp L2
[2017-08-22 11:35] LABS: Bedside Glucose 204 mg/dL (70-110)
[2017-08-22 12:16] LABS: Bedside Glucose 295 mg/dL (70-110)
--- NOTE | 2017-08-22 16:15 | NURSING ---
Pt's pulse ox reading on room air at rest was 92%. Ambulated pt around her room, pt's pulse ox dropped to 86-87%. Pt placed on 3L O2 and continued ambulating in room. Pulse ox hovered btwn 90-93% with activity.
[2017-08-22 16:55] LABS: Bedside Glucose 204 mg/dL (70-110)
[2017-08-22] MEDS: tiZANidine HCl 2 MG Tablet PO (22:01)
[2017-08-22] MEDS: Nortriptyline 10 MG Capsule PO (22:01)
[2017-08-22] MEDS: Loratadine 10 MG Tablet PO (22:02)
[2017-08-22 22:16] LABS: Bedside Glucose 183 mg/dL (70-110)
[2017-08-23] VITALS (13 sets, daily range): BP systolic 122–150; BP diastolic 82–86; PULSE 87–107; RESP 18–20; TEMP 36.2–36.6; O2SAT 88–96
[2017-08-23] MEDS: Zolpidem Tartrate 5 MG Tablet PO (00:28)
[2017-08-23 07:05] LABS: Bedside Glucose 181 mg/dL (70-110)
[2017-08-23] MEDS: Ipratropium/Albuterol Sulfate 3 ML AMPUL.NEB INHALATION ×3 (07:24→14:41)
--- NOTE | 2017-08-23 08:04 | PCM.PROGNOTE ---
Patient Problems: Active and Suspected Problems Acute respiratory failure with hypoxia (Acute) Suspected sleep apnea (Acute) Subjective: The patient was seen and examined at the bedside this morning. Events from the last 24 hours have been reviewed. The patient is currently afebrile, hemodynamically stable and maintaining appropriate oxygen saturations on 3 L/min via nasal cannula. The patient has improved clinically since being admitted to the hospital. Walking oximetry study did reveal desaturation requiring 2 L/min with exertion. Objective: The patient's most recent lab work, culture data and imaging studies have all been personally reviewed. Respiratory viral panel was positive for human Rider pneumo virus. - Physical Exam General: Alert, Cooperative, No apparent distress HEENT: Atraumatic, PERRLA, Normocephalic Oral: No Gingival or Mucosal Lesions/ Ulcerations Neck: Supple, No Nodes, Trachea Midline Lungs: No rhonchi, No wheeze, No rales, Diminished Cardiovascular: Regular rate, Regular Rhythm, Normal S1, Normal S2, No murmurs Abdomen: Bowel Sounds Present, Soft, Non Tender, Obese Extremities: No clubbing, No cyanosis, Edema Skin: No breakdown Musculoskeletal: No Tenderness to Palpation of Joints or Extremities Lymphatic: No Cervical, Supraclavicular, or Inguinal Adenopathy Neurological: Neuro grossly intact Psych/Mental Status: Normal Affect, Appropriate Vital Signs Temp Pulse Resp BP Pulse Ox 97.7 F L 87 18 128/86 H 94 08/23/17 06:52 08/23/17 06:52 08/23/17 06:52 08/23/17 06:52 08/23/17 06:53 Oxygen Flow Rate (L/min) 3 Oxygen Delivery Method Nasal Cannula Weight: 307 lb 8.717 oz Body Mass Index (BMI) 52.7 Intake and Output for Last 24 Hours 08/21/17 08/22/17 08/23/17 23:59 23:59 23:59 Intake Total 400 / 400 1860 / 1860 200 / 200 Balance 400 / 400 1860 / 1860 200 / 200 POC Glucose 08/23/17 08/22/17 08/22/17 06:46 21:58 16:44 POC Glucose 181 H 183 H 204 H 08/22/17 08/22/17 11:37 06:36 POC Glucose 295 H 204 H Labs (Last 48 Hours) 08/21/17 08/21/1708/21/18 10:42 16:32 22:18 WBC RBC Hgb Hct MCV MCH MCHC RDW RDW Differential Plt Count MPV Neut % (Auto) Absolute Neuts (auto) Absolute Lymphs (auto) Total Counted Neutrophils % (Manual) Band Neutrophils % Lymphocytes % (Manual) Monocytes % (Manual) Metamyelocytes % Diff Path Review Platelet Estimate RBC Morphology Sodium Potassium Chloride Carbon Dioxide Anion Gap BUN Creatinine Estim Creat Clear Calc Est GFR (MDRD) Af Amer Est GFR (MDRD) Non-Af BUN/Creatinine Ratio Glucose Calcium POC Glucose 287 H 218 H 253 H 08/22/17 08/22/17 08/22/17 06:35 06:35 06:36 WBC 18.1 H RBC 4.90 Hgb 14.3 Hct 46.1 MCV 94.1 MCH 29.2 MCHC 31.0 L RDW 14.4 RDW Differential 47.8 H Plt Count 305 MPV 8.9 Neut % (Auto) Not Reportable Absolute Neuts (auto) 13.4 H Absolute Lymphs (auto) 3.80 Total Counted 100 Neutrophils % (Manual) 73 H Band Neutrophils % 1 Lymphocytes % (Manual) 21 Monocytes % (Manual) 3 Metamyelocytes % 2 H Diff Path Review May foll Platelet Estimate ADEQUATE RBC Morphology NORM C+C Sodium 136 Potassium 4.8 Chloride 99 Carbon Dioxide 30.0 Anion Gap 7 BUN 17 Creatinine 0.85 Estim Creat Clear Calc 76.73 Est GFR (MDRD) Af Amer 96 Est GFR (MDRD) Non-Af 79 BUN/Creatinine Ratio 20.0 Glucose 169 H Calcium 8.8 POC Glucose 204 H 08/22/17 08/22/17 08/22/17 11:37 16:44 21:58 WBC RBC Hgb Hct MCV MCH MCHC RDW RDW Differential Plt Count MPV Neut % (Auto) Absolute Neuts (auto) Absolute Lymphs (auto) Total Counted Neutrophils % (Manual) Band Neutrophils % Lymphocytes % (Manual) Monocytes % (Manual) Metamyelocytes % Diff Path Review Platelet Estimate RBC Morphology Sodium Potassium Chloride Carbon Dioxide Anion Gap BUN Creatinine Estim Creat Clear Calc Est GFR (MDRD) Af Amer Est GFR (MDRD) Non-Af BUN/Creatinine Ratio Glucose Calcium POC Glucose 295 H 204 H 183 H 08/23/17 06:46 WBC RBC Hgb Hct MCV MCH MCHC RDW RDW Differential Plt Count MPV Neut % (Auto) Absolute Neuts (auto) Absolute Lymphs (auto) Total Counted Neutrophils % (Manual) Band Neutrophils % Lymphocytes % (Manual) Monocytes % (Manual) Metamyelocytes % Diff Path Review Platelet Estimate RBC Morphology Sodium Potassium Chloride Carbon Dioxide Anion Gap BUN Creatinine Estim Creat Clear Calc Est GFR (MDRD) Af Amer Est GFR (MDRD) Non-Af BUN/Creatinine Ratio Glucose Calcium POC Glucose 181 H Clinical Impression(s) from Imaging Studies Chest X-Ray 08/17/17 15:10 IMPRESSION: Patchy bibasilar infiltrates. Follow-up is recommended. Electronically Signed: Kong Glez MD at 15:40 EDT Tel [phone], Service support , Chest X-Ray 08/18/17 09:40 IMPRESSION: No acute abnormality is seen. Electronically Signed: Kong Glez MD at 15:11 EDT Tel [phone], Service support , Medical Necessity - Tobacco Use Smoking Status: Heavy Smoker (>10/day) - [id number] history Tobacco Use: Cigarettes Assessment/Plan Active and Suspected Problems Acute respiratory failure with hypoxia (Acute) Suspected sleep apnea (Acute) RECOMMENDATIONS: 1. Continue to wean supplemental oxygen to maintain saturations at or above 90%. 2. Continue bronchodilator regimen 3. Continue nicotine replacement therapy 4. Continue prednisone 40 mg daily by mouth. Plan for taper at discharge 5. Encourage incentive spirometer use and mobilize patient as tolerated 6. Perform walking oximetry study prior to consideration for discharge from the hospital 7. The patient should follow-up in the pulmonary medicine clinic within 2 weeks of her discharge IMPRESSIONS: 1. Acute hypoxic respiratory failure secondary to asthma exacerbation due to human metapneumovirus infection Improving clinically with scheduled bronchodilators and steroids. Would plan for a steroid taper at the time of her discharge. Anticipate home-going oxygen need. Please ensure that the patient has follow-up in the pulmonary medicine clinic within 2 weeks of her discharge from the hospital. 2. Suspected sleep apnea Outpatient polysomnogram can be considered upon her follow-up in the pulmonary medicine clinic. 3. Morbid obesity/tobacco use Complicates care, management, recovery and prognosis. Weight loss is strongly recommended, as is smoking cessation. This note was generated with [employer] dictation software. It may contain incorrect words, spelling, and punctuation that were not noted in checking the note before signing. Code Visit Inpatient E&M: 10186 Subs Hosp L2
--- NOTE | 2017-08-23 08:08 | PN_ITS ---
Patient Problems: Active and Suspected Problems Acute respiratory failure with hypoxia (Acute) Suspected sleep apnea (Acute) Subjective: The patient was seen and examined at the bedside this morning. Events from the last 24 hours have been reviewed. The patient is currently afebrile, hemodynamically stable and maintaining appropriate oxygen saturations on 3 L/ min via nasal cannula. The patient has improved clinically since being admitted to the hospital. Walking oximetry study did reveal desaturation requiring 2 L/min with exertion. Objective: The patient's most recent lab work, culture data and imaging studies have all been personally reviewed. Respiratory viral panel was positive for human Rider pneumo virus. - Physical Exam General: Alert, Cooperative, No apparent distress HEENT: Atraumatic, PERRLA, Normocephalic Oral: No Gingival or Mucosal Lesions/ Ulcerations Neck: Supple, No Nodes, Trachea Midline Lungs: No rhonchi, No wheeze, No rales, Diminished Cardiovascular: Regular rate, Regular Rhythm, Normal S1, Normal S2, No murmurs Abdomen: Bowel Sounds Present, Soft, Non Tender, Obese Extremities: No clubbing, No cyanosis, Edema Skin: No breakdown Musculoskeletal: No Tenderness to Palpation of Joints or Extremities Lymphatic: No Cervical, Supraclavicular, or Inguinal Adenopathy Neurological: Neuro grossly intact Psych/Mental Status: Normal Affect, Appropriate Vital Signs Temp Pulse Resp BP Pulse Ox 97.7 F L 87 18 128/86 H 94 08/23/17 06:52 08/23/17 06:52 08/23/17 06:52 08/23/17 06:52 08/23/17 06:53 Oxygen Flow Rate (L/min) 3 Oxygen Delivery Method Nasal Cannula Weight: 307 lb 8.717 oz Body Mass Index (BMI) 52.7 Intake and Output for Last 24 Hours 08/21/17 08/22/17 08/23/17 23:59 23:59 23:59 Intake Total 400 / 400 1860 / 1860 200 / 200 Balance 400 / 400 1860 / 1860 200 / 200 POC Glucose 08/23/17 08/22/17 08/22/17 06:46 21:58 16:44 POC Glucose 181 H 183 H 204 H 08/22/17 08/22/17 11:37 06:36 POC Glucose 295 H 204 H Labs (Last 48 Hours) 08/21/17 08/21/1708/21/18 10:42 16:32 22:18 WBC RBC Hgb Hct MCV MCH MCHC RDW RDW Differential Plt Count MPV Neut % (Auto) Absolute Neuts (auto) Absolute Lymphs (auto) Total Counted Neutrophils % (Manual) Band Neutrophils % Lymphocytes % (Manual) Monocytes % (Manual) Metamyelocytes % Diff Path Review Platelet Estimate RBC Morphology Sodium Potassium Chloride Carbon Dioxide Anion Gap BUN Creatinine Estim Creat Clear Calc Est GFR (MDRD) Af Amer Est GFR (MDRD) Non-Af BUN/Creatinine Ratio Glucose Calcium POC Glucose 287 H 218 H 253 H 08/22/17 08/22/17 08/22/17 06:35 06:35 06:36 WBC 18.1 H RBC 4.90 Hgb 14.3 Hct 46.1 MCV 94.1 MCH 29.2 MCHC 31.0 L RDW 14.4 RDW Differential 47.8 H Plt Count 305 MPV 8.9 Neut % (Auto) Not Reportable Absolute Neuts (auto) 13.4 H Absolute Lymphs (auto) 3.80 Total Counted 100 Neutrophils % (Manual) 73 H Band Neutrophils % 1 Lymphocytes % (Manual) 21 Monocytes % (Manual) 3 Metamyelocytes % 2 H Diff Path Review May foll Platelet Estimate ADEQUATE RBC Morphology NORM C+C Sodium 136 Potassium 4.8 Chloride 99 Carbon Dioxide 30.0 Anion Gap 7 BUN 17 Creatinine 0.85 Estim Creat Clear Calc 76.73 Est GFR (MDRD) Af Amer 96 Est GFR (MDRD) Non-Af 79 BUN/Creatinine Ratio 20.0 Glucose 169 H Calcium 8.8 POC Glucose 204 H 08/22/17 08/22/17 08/22/17 11:37 16:44 21:58 WBC RBC Hgb Hct MCV MCH MCHC RDW RDW Differential Plt Count MPV Neut % (Auto) Absolute Neuts (auto) Absolute Lymphs (auto) Total Counted Neutrophils % (Manual) Band Neutrophils % Lymphocytes % (Manual) Monocytes % (Manual) Metamyelocytes % Diff Path Review Platelet Estimate RBC Morphology Sodium Potassium Chloride Carbon Dioxide Anion Gap BUN Creatinine Estim Creat Clear Calc Est GFR (MDRD) Af Amer Est GFR (MDRD) Non-Af BUN/Creatinine Ratio Glucose Calcium POC Glucose 295 H 204 H 183 H 08/23/17 06:46 WBC RBC Hgb Hct MCV MCH MCHC RDW RDW Differential Plt Count MPV Neut % (Auto) Absolute Neuts (auto) Absolute Lymphs (auto) Total Counted Neutrophils % (Manual) Band Neutrophils % Lymphocytes % (Manual) Monocytes % (Manual) Metamyelocytes % Diff Path Review Platelet Estimate RBC Morphology Sodium Potassium Chloride Carbon Dioxide Anion Gap BUN Creatinine Estim Creat Clear Calc Est GFR (MDRD) Af Amer Est GFR (MDRD) Non-Af BUN/Creatinine Ratio Glucose Calcium POC Glucose 181 H Clinical Impression(s) from Imaging Studies Chest X-Ray 08/17/17 15:10 IMPRESSION: Patchy bibasilar infiltrates. Follow-up is recommended. Electronically Signed: Kong Glez MD at 15:40 EDT Tel [phone], Service support , Chest X-Ray 08/18/17 09:40 IMPRESSION: No acute abnormality is seen. Electronically Signed: Kong Glez MD at 15:11 EDT Tel [phone], Service support , Medical Necessity - Tobacco Use Smoking Status: Heavy Smoker (>10/day) - [id number] history Tobacco Use: Cigarettes Assessment/Plan Active and Suspected Problems Acute respiratory failure with hypoxia (Acute) Suspected sleep apnea (Acute) RECOMMENDATIONS: 1. Continue to wean supplemental oxygen to maintain saturations at or above 90% . 2. Continue bronchodilator regimen 3. Continue nicotine replacement therapy 4. Continue prednisone 40 mg daily by mouth. Plan for taper at discharge 5. Encourage incentive spirometer use and mobilize patient as tolerated 6. Perform walking oximetry study prior to consideration for discharge from the hospital 7. The patient should follow-up in the pulmonary medicine clinic within 2 weeks of her discharge IMPRESSIONS: 1. Acute hypoxic respiratory failure secondary to asthma exacerbation due to human metapneumovirus infection Improving clinically with scheduled bronchodilators and steroids. Would plan for a steroid taper at the time of her discharge. Anticipate home-going oxygen need. Please ensure that the patient has follow-up in the pulmonary medicine clinic within 2 weeks of her discharge from the hospital. 2. Suspected sleep apnea Outpatient polysomnogram can be considered upon her follow-up in the pulmonary medicine clinic. 3. Morbid obesity/tobacco use Complicates care, management, recovery and prognosis. Weight loss is strongly recommended, as is smoking cessation. This note was generated with [employer] dictation software. It may contain incorrect words, spelling, and punctuation that were not noted in checking the note before signing. Code Visit Inpatient E&M: 33478 Subs Hosp L2
--- NOTE | 2017-08-23 08:20 | DCINST_ITS ---
- Discharge Diagnoses Current Active Problems: Current Active and Chronic Problems Obesity (Chronic) Morbid obesity with BMI of 50.0-59.9, adult (Chronic) Acute respiratory failure with hypoxia (Acute) Suspected sleep apnea (Acute) You will use the following diet at home:: No restrictions Discharge Activity: May not drive while taking narcotic pain medications. Allergies/Adverse Reactions: Allergies codeine Allergy (Verified 08/17/17 13:48) Anaphylaxis propoxyphene napsylate [From Darvocet-N] Allergy (Verified 08/17/17 14:07) Rash Sulfa (Sulfonamide Antibiotics) Allergy (Verified 08/17/17 13:48) Anaphylaxis amoxicillin Adverse Reaction (Verified 08/17/17 14:07) Other YEAST INFECTIONS Medications to take at Discharge Fluticasone 0.05% [Flonase Nasal [place]] 1 spray PO DAILY PRN 10/02/16 Loratadine 10 mg PO DAILY 10/02/16 Nortriptyline HCl [Pamelor] 10 mg PO DAILY 10/02/16 Tizanidine HCl [Zanaflex] 2 mg PO QHS 10/02/16 Zolpidem Tartrate [Ambien] 10 mg PO DAILY 10/02/16 Albuterol Inhaler [Ventolin Hfa] 2 puff INHALATION Q4H PRN PRN 08/17/17 Ranitidine [Zantac] 150 mg PO BID 08/17/17 Duloxetine Hcl [Cymbalta] 90 mg PO DAILY 08/20/17 Guaifenesin [Mucinex] 1,200 mg PO BID #14 tab 08/23/17 Prednisone 10 mg PO UD #30 tab 08/23/17 The following prescriptions were given: Guaifenesin [Mucinex] 1,200 mg PO BID #14 tab Prednisone 10 mg PO UD #30 tab Primary Care Physician: Rhonda Adkins MD [Primary Care Provider] - Please follow up with your Primary Care Physician in: in 1-2 weeks Please Follow Up With: Eloy Swan DO When: in 2-4 weeks Proposed Discharge Date: 08/23/17
--- NOTE | 2017-08-23 08:25 | DS.PCM_ITS ---
Discharge Date and Diagnosis - Problem List Patient Problems: Active and Suspected Problems Acute respiratory failure with hypoxia (Acute) Suspected sleep apnea (Acute) Date of Admission: 08/17/17 Date of Discharge: 08/23/17 - Primary Discharge Diagnosis Active and Suspected Problems Acute respiratory failure with hypoxia (Acute) Suspected sleep apnea (Acute) - Secondary Discharge Diagnosis Chronic Problems Mild intermittent asthma (Chronic) Obesity (Chronic) Morbid obesity with BMI of 50.0-59.9, adult (Chronic) Hospital Course and Treatment Imaging Results: Clinical Impression(s) from Imaging Studies Chest X-Ray 08/17/17 15:10 IMPRESSION: Patchy bibasilar infiltrates. Follow-up is recommended. Electronically Signed: Kong Glez MD at 15:40 EDT Tel [phone], Service support , Chest X-Ray 08/18/17 09:40 IMPRESSION: No acute abnormality is seen. Electronically Signed: Kong Glez MD at 15:11 EDT Tel [phone], Service support , Summary of Care Provided: Patient is a 37-year-old lady with history of mild intermittent asthma admitted with progressive shortness of breath with associated cough and wheezing 1. Acute hypoxic respiratory insufficiency secondary to agree to acute asthma exacerbation. Patient was admitted to regular nursing floor management protocol with consultation placed a pulmonary. Patient did improve was assessed for home oxygen prior to being discharged. Patient did qualify for home oxygen she would need home oxygen with portability since she is mobile both at home as well as in the community 2. Acute asthma exacerbation precipitated by human metpneumo viral bronchitis/ inhalation injury(from Marijuana),? additives in the marijuana inhaled 3. Morbid obesity with BMI of 52.8 weight loss advised patient was instructed to follow-up with PCP for possible referral for gastric bypass surgery 4. Generalized osteoarthritis 5. Polysubstance abuse including marijuana and nicotine counseled on cessation 6. DVT prophylaxis on heparin Discharge Diet: No Restrictions Discharge Activity: May not drive while taking narcotic pain medications. Home Medications: Medications to take at Discharge Fluticasone 0.05% [Flonase Nasal [place]] 1 spray PO DAILY PRN 10/02/16 Loratadine 10 mg PO DAILY 10/02/16 Nortriptyline HCl [Pamelor] 10 mg PO DAILY 10/02/16 Tizanidine HCl [Zanaflex] 2 mg PO QHS 10/02/16 Zolpidem Tartrate [Ambien] 10 mg PO DAILY 10/02/16 Albuterol Inhaler [Ventolin Hfa] 2 puff INHALATION Q4H PRN PRN 08/17/17 Ranitidine [Zantac] 150 mg PO BID 08/17/17 Duloxetine Hcl [Cymbalta] 90 mg PO DAILY 08/20/17 Guaifenesin [Mucinex] 1,200 mg PO BID #14 tab 08/23/17 Prednisone 10 mg PO UD #30 tab 08/23/17 Following Prescrptions Were Given to Patient: Guaifenesin [Mucinex] 1,200 mg PO BID #14 tab Prednisone 10 mg PO UD #30 tab Primary Care Physician: Rhonda Adkins MD [Primary Care Provider] - Please follow up with your Primary Care Physician in: in 1-2 weeks Please Follow Up With: Eloy Swan DO When: in 2-4 weeks Minutes spent on discharge:: 35 Patient Condition:: Stable Medical Necessity - Tobacco Use Smoking Status: Heavy Smoker (>10/day) - [id number] history Tobacco Use: Cigarettes Meaningful Use Info Meaningful Use Diagnoses (Choose all that apply): None applicable Code Visit Inpatient E&M: 01107 Disch Hosp
[2017-08-23] MEDS: Famotidine 20 MG Tablet PO (09:23)
[2017-08-23] MEDS: predniSONE 20 MG Tablet 40 MG PO (09:23)
[2017-08-23] MEDS: guaiFENesin 1,200 MG Tablet 1200 MG PO (09:23)
[2017-08-23] MEDS: DULoxetine Hcl 30 MG Capsule 90 MG PO (09:23)
[2017-08-23 11:45] LABS: Bedside Glucose 237 mg/dL (70-110)
--- NOTE | 2017-08-23 12:30 | CASEMGMT ---
Script obtained for portable oxygen and faxed to [facility] patient's preferred DME company. ROD HAYS will continue to follow this patient and plan for a safe discharge.
--- NOTE | 2017-08-23 13:45 | CASEMGMT ---
ROD HAYS called [facility] and confirmed with Butch that referral was received and being processed. ROD HAYS will continue to follow and plan for a safe discharge.
[2017-08-23 14:42] LABS: Pathologist Review Reviewed
--- NOTE | 2017-08-23 16:19 | CASEMGMT ---
ROD HAYS received call from Charge Nurse Nisreen VELASCO that [facility] states that they missed filed referral and not sure if they would be able to fill today. ROD HAYS called [facility] and spoke with Татьяна and stated they were working on it and would get someone to deliver tank today and apologized for the wait. ROD HAYS updated Charge Nurse Nisreen VELASCO.
== END 2017-08-23 17:27 | disposition home or self-care (01) | DRG 87 ==
LOC: ED 14:24 → MS3 16:44
PROVIDERS: Internal Medicine; Admitting Provider Internal Medicine; Emergency Provider Emergency Medicine; Family Provider Internal Medicine; PCP Internal Medicine; Visit Provider Internal Medicine
DX: J96.01 Acute respiratory failure with hypoxia (principal); J20.9 Acute bronchitis, unspecified; J45.21 Mild intermittent asthma with (acute) exacerbation; B97.81 Human metapneumovirus as the cause of diseases classified elsewhere; G47.30 Sleep apnea, unspecified; E66.2 Morbid (severe) obesity with alveolar hypoventilation; F17.200 Nicotine dependence, unspecified, uncomplicated; K21.9 Gastro-esophageal reflux disease without esophagitis; G47.00 Insomnia, unspecified; R73.9 Hyperglycemia, unspecified; M15.9 Polyosteoarthritis, unspecified; F12.90 Cannabis use, unspecified, uncomplicated; Z68.43 Body mass index [BMI] 50.0-59.9, adult; Z88.5 Allergy status to narcotic agent
CPT/HCPCS: 36415; 71045; 71046; 80048; 82962; 83036; 83735; 85025; 87633; 94640; 94667; 94668; 94762; 97802; 99251; 99284; 99406; A4216; G0463

== ENCOUNTER → 2017-09-17 10:51 | Outpatient (CLI) | payer MEDICAID, SELFPAY ==
--- NOTE | 2017-09-17 11:00 | VDLE_ITS ---
Reason For Study: LEG PAIN/ EDEMA RIGHT LEFT GSV is normal. GSV is normal. CFV is compressible, spontaneous, phasic, CFV is compressible, spontaneous, phasic, competent and demonstrates normal competent, and demonstrates normal augmentation. augmentation. FV is compressible, spontaneous, phasic, FV is compressible, spontaneous, phasic, competent and demonstrates normal competent and demonstrates normal augmentation. augmentation. POP V is compressible, spontaneous, phasic, POP V is compressible, spontaneous, phasic, competent and demonstrates normal competent and demonstrates normal augmentation. augmentation. T/P Trunk is compressible. T/P Trunk is compressible. PTV is compressible. PTV is compressible. RT PerV is compressible. LT PerV is compressible. Procedure Exam performed in department. Technically difficult study due to body habitus. Proximal and mid calf veins were not visualized. Distal PTV and Francisco V are compressible . A preliminary report was called and/or faxed to DR SCHAEFER. Interpretation Summary Deep veins of the lower extremities are bilaterally patent and compressible segmentally. There is no evidence of deep vein thrombosis on either side. Valvular competence appears intact within the proximal deep venous systems bilaterally. The greater saphenous veins appear bilaterally patent and compressible segmentally. The proximal and mid-calf veins were not visualized on either side due to the patient's body habitus. Ordering Physician: Juma Schaefer Referring Physician: BABAR PHILLIP Performed By: Ayah Mckeon, JAVIERCS, RVT
== END ==
PROVIDERS: Family Provider Internal Medicine; PCP Internal Medicine; Visit Provider Family Medicine
DX: M79.604 Pain in right leg (principal); M79.605 Pain in left leg; R60.9 Edema, unspecified
CPT/HCPCS: 93970

== ENCOUNTER → 2017-10-06 20:00 | Outpatient (CLI) | payer MEDICAID, SELFPAY ==
[2017-10-06 20:00] VITALS: O2SAT 95
== END ==
PROVIDERS: Family Provider Internal Medicine; PCP Internal Medicine; Visit Provider Nurse Practitioner Acute Care
DX: R29.818 Other symptoms and signs involving the nervous system (principal)
CPT/HCPCS: 95811

== ENCOUNTER → 2017-12-28 10:44 | Outpatient (CLI) | payer MEDICAID, SELFPAY ==
[2017-12-28 11:16] VITALS: PULSE 109; PULSE 110; PULSE 121; PULSE 95; PULSE 97; PULSE 98; PULSE 99; O2SAT 90; O2SAT 901; O2SAT 91; O2SAT 93; O2SAT 94; O2SAT 95
--- NOTE | 2017-12-28 14:22 | PCM.PSN.6M ---
PSN 6 Minute Walk Test - 6 Minute Walk Test 6 Minute Walk Test: 6 Minute Walk Test PSN:6-Minute Walk Test Start: 12/28/17 11:15 Freq: Status: Active Protocol: RESP.6MINW Document 12/28/17 11:16 HAILEY (Rec: 12/28/17 11:19 HAILEY [id number]) 6 Minute Walk Test Date Performed 12/28/17 Time Performed 11:00 Height 5 ft 4 in Weight: 315 lb Weight in Pounds 315.[address]: Kamron Cobb Assistive device used: None Pre-test Oxygen Delivery Method Room Air Pulse Ox (%) 94 Pulse Rate (60-100 beats/min) 97 Dyspnea Solomon Scale (0-10) 0 Exertion Solomon Scale (6-20) 6 1st minute Oxygen Delivery Method Room Air Pulse Ox (%) 90 Pulse Rate (60-100 beats/min) 99 2nd minute Oxygen Delivery Method Room Air Pulse Ox (%) 91 Pulse Rate (60-100 beats/min) 97 3rd minute Oxygen Delivery Method Room Air Pulse Ox (%) 91 Pulse Rate (60-100 beats/min) 95 4th minute Oxygen Delivery Method Room Air Pulse Ox (%) 901 Pulse Rate (60-100 beats/min) 121 H 5th minute Oxygen Delivery Method Room Air Pulse Ox (%) 93 Pulse Rate (60-100 beats/min) 109 H 6th minute Oxygen Delivery Method Room Air Pulse Ox (%) 90 Pulse Rate (60-100 beats/min) 110 H Dyspnea Solomon Scale (0-10) 3 Exertion Solomon Scale (6-20) 13 Post-test Oxygen Delivery Method Room Air Pulse Ox (%) 95 Pulse Rate (60-100 beats/min) 98 Full Laps Walked 13 Partial Lap, Number of Tiles Walked 25 Total Distance Walked (ft) 792 - Interpretation Interpretation: The patient ambulated 792 feet over the course of 6 minutes beginning on room air without assistive devices or breaks. Pretesting oxygen saturation was noted to be 94% on room air. With ambulation, the kamila oxygen saturation was 90%. There was evidence of both impaired walk distance and significant exertional oxygen desaturation. - Recommendations Recommendations: There is no indication for the use of supplemental oxygen at this time. However, close interval follow-up is recommended, given the degree of oxygen desaturation noted during this study.
== END ==
PROVIDERS: Family Provider Internal Medicine; PCP Internal Medicine; Visit Provider Nurse Practitioner Acute Care
DX: J45.909 Unspecified asthma, uncomplicated (principal); F17.200 Nicotine dependence, unspecified, uncomplicated
CPT/HCPCS: 94618

== ENCOUNTER → 2018-01-13 09:51 | Outpatient (CLI) | payer MEDICAID, SELFPAY ==
--- NOTE | 2018-01-13 13:21 | PFT ---
INTRODUCTION: The patient is a 38-year-old female that presents for pulmonary function testing secondary to a diagnosis of asthma. Respiratory therapy reports good patient effort. Bronchodilators were used during testing. INTERPRETATION: Forced expiration spirometry demonstrates no evidence of a large airways obstructive ventilatory defect. There was no significant response to aerosolized bronchodilators. Spirograms are of good quality and plateau normally. The respiratory flow volume loop appears normal. Body plethysmography was performed and reveals a decreased TLC to 3.8 L, 74% of predicted, indicative of a mild restrictive ventilatory defect. The remainder of the lung volumes are symmetrically reduced. Diffusing capacity by single breath CO is moderately reduced at 47% of predicted. IMPRESSION: These pulmonary function studies demonstrate the presence of a mild restrictive ventilatory defect with a disproportionate moderate reduction in diffusing capacity. There are no previous pulmonary function studies available for comparison.
== END ==
PROVIDERS: Family Provider Internal Medicine; PCP Internal Medicine; Visit Provider Nurse Practitioner Acute Care
DX: J45.909 Unspecified asthma, uncomplicated (principal)
CPT/HCPCS: 94060; 94726; 94729

== ENCOUNTER 2018-01-16 21:09 | Emergency (ER) | payer MEDICAID, SELFPAY ==
[2018-01-16 21:10] VITALS: BP 174/89; PULSE 101; RESP 24; TEMP 36.6; O2SAT 95; BMI 53.4
[2018-01-16 21:49] VITALS: BP 168/85; PULSE 100; RESP 18; O2SAT 95
[2018-01-16] MEDS: Ipratropium/Albuterol Sulfate 3 ML AMPUL.NEB INHALATION (21:58)
[2018-01-16 21:59] VITALS: PULSE 100; RESP 20
[2018-01-16] MEDS: Albuterol 2.5 MG/3 ML VIAL.NEB. INHALATION ×2 (21:59)
[2018-01-16] MEDS: 0.9% Normal Saline 1,000 ML 999 ML IV (22:04)
[2018-01-16] MEDS: MethylPREDNISolone 125 MG/2 ML Vial IV (22:04)
[2018-01-16 22:05] LABS: Absolute Lymphocyte Count 1.23 X10^3/ul (0.83-4.51); Absolute Neutrophil Count 5.3 X10^3/uL (2.0-7.7); Basophil# 0.01 X10^3/uL; Basophil% 0.1 % (0-1); Eosinophil# 0.18 X10^3/uL; Eosinophils% 2.4 % (0-5); Hematocrit 41.8 % (37-47); Hemoglobin 12.7 g/dl (12.0-15.0); Lymphocyte # 1.23 X10^3/ul (4.0); Lymphocyte % 16.6 % (19-41); Mean Corp Hgb Conc 30.4 g/gl (32-36); Mean Corpuscular Hgb 28.3 pg (27.0-32.0); Mean Corpuscular Volume 93.3 fL (81-99); Mean Platelet Vol. 9.2 fl (6.2-12.0); Monocyte# 0.68 X10^3/uL; Monocyte% 9.2 % (0-10); Neutrophil # 5.32 X10^3/uL (2.7-7.7); Neutrophil % 71.6 % (47-70); Platelet Count 184 K/mm3 (150-450); RBC Distribution Width SD 50.5 fl (35.1-43.9); Red Blood Count 4.48 M/mm3 (4.2-5.4); White Blood Count 7.4 K/mm3 (4.4-11.0)
[2018-01-16 22:06] LABS: POSITIVE COUNT NO; POSITIVE DIFFERENTIAL NO; POSITIVE MORPHOLOGY NO
[2018-01-16 22:21] LABS: Anion Gap 9 (5-15); BUN 11 mg/dL (7-18); BUN/Creat Ratio 15.3 RATIO (10-20); Calcium,Total 8.8 mg/dL (8.5-10.1); Chloride 107 mmol/L (98-107); Creatinine, Serum 0.72 mg/dL (0.55-1.02); EST Glomerular Filtration Rate 95 mL/min (>60); Est Glom Filt Rate - Afr Amer 115 mL/min (>60); Estimated Creatinine Clearance 93.46 ml/min; Glucose 122 mg/dL (74-106); Potassium 3.8 mmol/L (3.5-5.1); Sodium Level 141 mmol/L (136-145)
--- NOTE | 2018-01-16 22:53 | ED.DCSUM_ITS ---
- ER Visit Summary Date of Service: 01/16/18 Chief Complaint: Shortness of breath History of Present Illness: The patient is a [address] Adkins and Dr. Cobb. She reports she has shortness of breath began 2 days ago. It is moderate currently and severe at worst. Is worsened by coughing or exertion. Is relieved by nothing. She reports her cough is nonproductive. She has had subjective fever and chills. She reports that she has lower chest pain with coughing only. Reports that she has had this previously. She states that I had RSV in August. Physical Examination: Vitals: Stable. Afebrile. General: Well-nourished and well-developed. Head: Normocephalic atraumatic. Neck: Supple, no lymphadenopathy. No JVD. Nontender. Cardiovascular: Regular rate and rhythm. No murmurs. Respiratory: No respiratory distress. Moderate wheezing bilaterally with decreased air movement. Abdominal: Soft, nontender, nondistended, normal bowel sounds. No guarding, rebound, or peritoneal signs. Back: Nontender. Extremities: Nontender, no edema. Skin: Normal color, no rash. Neurologic: Alert and oriented ?3. Cranial nerves II through XII are intact. Normal strength and sensation. Psych: Normal affect. Test Results: EKG is sinus at [address] changes. CBC is more for 7 neutrophils 72 and lymphs at 17. Chem-7 is more for glucose of 122. Chest x- ray shows chronic changes. Emergency Department Course and Treatment: Patient was treated albuterol Atrovent aerosols. She is given Solu-Medrol IV. She is given ibuprofen p.o. for her pain. On repeat exam patient's breathing is improved. Her pulse ox is 92% on room air in bed. When ambulated this increased to 95%. Treatment Plan: Patient will be discharged instructions to continue her nebulizer. She will be placed on a 5 day burst of prednisone. Instructed to follow-up Dr. Adkins in 1-2 days not improving. Return to the emergency department for any worsening symptoms. Disposition: To home in improved and stable condition. Impression: 1. URI. 2. Bronchospasm. This note was generated with [employer] dictation software. It may contain incorrect words, spelling, and punctuation that were not noted in review of the chart prior to signing ED Disposition - Plan for ED Patient: Chief Complaint: Shortness of Breath Instructions: ED Upper Resp Infec No Abx Tx Prescriptions: Prednisone [Deltasone] 40 mg PO DAILY #10 tablet Referrals: Rhonda Adkins MD [Primary Care Provider] - 1-2 Days if not improving
[2018-01-16 23:31] VITALS: O2SAT 92
[2018-01-17 00:25] VITALS: PULSE 103; RESP 20
[2018-01-17] MEDS: Albuterol 2.5 MG/3 ML VIAL.NEB. INHALATION (00:25)
[2018-01-17] MEDS: predniSONE 20 MG Tablet 40 MG PO (00:35)
[2018-01-17 00:37] VITALS: BP 164/84; RESP 22
== END 2018-01-17 00:38 | disposition home or self-care (01) ==
LOC: ED 22:03
PROVIDERS: Emergency Provider Emergency Medicine; Family Provider Internal Medicine; PCP Internal Medicine
DX: J06.9 Acute upper respiratory infection, unspecified (principal); J98.01 Acute bronchospasm; E78.00 Pure hypercholesterolemia, unspecified; G47.33 Obstructive sleep apnea (adult) (pediatric); F17.210 Nicotine dependence, cigarettes, uncomplicated
CPT/HCPCS: 71046; 80048; 85025; 93005; 94640; 99285; J7030; A4216

== ENCOUNTER → 2018-08-17 15:59 | Outpatient (CLI) | payer MEDICAID, SELFPAY ==
[2018-08-17 15:08] VITALS: BMI 52.0
--- NOTE | 2018-08-17 16:22 | RAD_ITS ---
STUDY: X-RAY CHEST REASON FOR EXAM: Female, 38 years old. Shortness of breath. TECHNIQUE: PA and lateral views of the chest. COMPARISON: August 18 and January 16, 2018 FINDINGS: There is no new focal consolidation. Normal size heart. Normal mediastinum and lizeth. Normal visualized pulmonary arteries. Normal visualized aortic arch and descending thoracic aorta. There are diffuse degenerative changes of the visualized thoracic spine. Normal visualized ribs, clavicles, and shoulders. There is no demonstrated abnormality of the visualized soft tissue structures of the upper abdomen. RAD/Chest PA and Lateral IMPRESSION: No acute cardiopulmonary process. Electronically Signed: Lara Taveras MD at 17:30 EDT Tel , Service support ,
[2018-08-17 17:59] LABS: Anion Gap 4 (5-15); BUN 10 mg/dL (7-18); BUN/Creat Ratio 10.9 RATIO (10-20); Calcium,Total 9.3 mg/dL (8.5-10.1); Chloride 107 mmol/L (98-107); Creatinine, Serum 0.92 mg/dL (0.55-1.02); EST Glomerular Filtration Rate 72 mL/min (>60); Est Glom Filt Rate - Afr Amer 87 mL/min (>60); Glucose 88 mg/dL (74-106); Potassium 4.2 mmol/L (3.5-5.1); Sodium Level 139 mmol/L (136-145)
[2018-08-17 18:05] LABS: D-Dimer Quantitative (DVT/PE) 1.22 FEU/ug/m (0.27-0.49)
[2018-08-17 18:06] LABS: BNP,B-Type NATRIURETIC PEPTIDE < 2.0 pg/mL (0-100)
== END ==
PROVIDERS: Family Provider Internal Medicine; PCP Internal Medicine; Referring Provider Nurse Practitioner Acute Care; Visit Provider Nurse Practitioner Acute Care
DX: R06.00 Dyspnea, unspecified (principal); R06.02 Shortness of breath
CPT/HCPCS: 36415; 71046; 80048; 83880; 84484; 85379

== ENCOUNTER → 2018-08-18 09:10 | Outpatient (CLI) | payer MEDICAID, SELFPAY ==
[2018-08-17 15:08] VITALS: BMI 52.0
--- NOTE | 2018-08-18 09:12 | CT_ITS ---
STUDY: CTA CHEST REASON FOR EXAM: Female, 38 years old. Chest pressure. Elevated d-dimer. RADIATION DOSAGE (If Supplied By Facility): CTDIvol = ( 16.35 ) mGy, DLP = ( 700.67 ) mGycm TECHNIQUE: The examination was performed with the intravenous administration of 100 IV Isovue 370. Post-processing of the angiographic images was performed, with multiplanar reformation and 3D reconstruction. Individualized dose optimization techniques were used for this CT. COMPARISON: None. FINDINGS: Normal enhancement of the main pulmonary artery and right and left pulmonary arteries. Normal enhancement of the bilateral peripheral pulmonary arteries. There is no demonstrated pulmonary embolism. Normal thoracic aorta and visualized great vessels. There is no demonstrated aortic dissection. Normal heart and pericardium. Normal mediastinum. Normal hilar regions. Normal visualized trachea and bronchi. The lungs are well expanded. Normal pulmonary parenchyma. Normal pleura. Normal chest wall structures. There are degenerative changes of thoracic spine. Normal visualized upper abdomen. CT/CTA Chest W/WO Contrast IMPRESSION: Normal CTA chest examination, without a demonstrated pulmonary embolism or arterial dissection. Electronically Signed: Kong Glez, at 9:53 EDT , Service support ,
== END ==
PROVIDERS: Family Provider Internal Medicine; PCP Internal Medicine; Referring Provider Nurse Practitioner Acute Care; Visit Provider Nurse Practitioner Acute Care
DX: I26.99 Other pulmonary embolism without acute cor pulmonale (principal)
CPT/HCPCS: 71275; Q9967

== ENCOUNTER 2019-03-19 21:16 | Emergency (ER) | payer MEDICAID, SELFPAY ==
[2018-11-01 13:12] VITALS: BMI 50.4
[2019-03-19 21:17] VITALS: BP 132/86; PULSE 106; RESP 28; TEMP 36.8; O2SAT 96; BMI 53.6
--- NOTE | 2019-03-19 21:33 | RAD_ITS ---
STUDY: X-RAY CHEST REASON FOR EXAM: Female, 39 years old. Cough and shortness of breath TECHNIQUE: PA and lateral views of the chest. COMPARISON: 08/16/2018 FINDINGS: EKG leads overlie the chest The lungs are clear and expanded. There is no demonstrated pleural abnormality. Normal size heart. Normal mediastinum and lizeth. Normal visualized pulmonary arteries. Normal visualized aortic arch and descending thoracic aorta. Normal visualized thoracic spine. Normal visualized ribs, clavicles, and shoulders. There is no demonstrated abnormality of the visualized soft tissue structures of the upper abdomen. RAD/Chest PA and Lateral IMPRESSION: No acute pulmonary process Electronically Signed: Cyril Neal MD at 22:22 EST , Service support ,
--- NOTE | 2019-03-19 21:34 | ED.DCSUM_ITS ---
- ER Visit Summary Date of Service: 03/19/19 Chief Complaint: Shortness of breath and cough History of Present Illness: The patient is a 39 F who presents with shortness of breath and cough that is been getting worse over the past 2 weeks. Patient states her breathing is worse with any exertion. Patient states nothing seems to help her breathing. Patient states she has been using aerosols and inhalers at home with no relief. Patient states she has been on 2 courses of steroids and a course of antibiotics which have not helped. Patient states she is having a cough with some clear and yellow sputum. Patient admits to a fever of 101 at home. Patient states she has pain in her chest and back with coughing. Physical Examination: Vital signs are stable except for tachycardia of 106 and a mild tachypnea of 28. Patient is afebrile here. Patient is in no acute distress. Oral mucosa is pink and moist. Neck is supple. Trachea is midline. There is no JVD. Heart was regular rate and rhythm. Lungs showed diffuse expiratory wheezing. There is good respiratory effort noted. Abdomen is soft. Bowel sounds are normal. There is no tenderness. Cranial nerves II through XII are intact. There are no focal motor or sensory deficits noted. Test Results: CBC shows a slight leukocytosis of 13.1. This is likely due to the recent steroids. Glucose was slightly elevated at 273. PA and lateral chest x-ray was obtained. There is no acute cardiopulmonary process. Emergency Department Course and Treatment: Patient was given a DuoNeb aerosol here. Patient was still having wheezing on reevaluation. The case was discussed with Dr. Cobb. He recommended obtaining sputum culture and respiratory panel. These were ordered. Patient felt better on reevaluation. Patient was instructed to follow-up with Dr. Cobb in 3 to 5 days. Patient was instructed to continue her aerosols at home as needed. Patient understood and was agreeable with the plan. All questions were answered. Disposition: Discharge home Impression: COPD exacerbation This note was generated with [employer] dictation software. It may contain incorrect words, spelling, and punctuation that were not noted in review of the chart prior to signing ED Disposition - Plan for ED Patient: Disposition: Home or Assisted Living Diagnosis: Asthma exacerbation Instructions: ASTHMA, Acute (Adult) Referrals: Chay Hay NP-C [NON-STAFF] - 3-5 Days Kamron Cobb MD [STAFF PHYSICIAN] - 3-5 Days
[2019-03-19 21:36] VITALS: O2SAT 96
[2019-03-19 21:42] VITALS: PULSE 93; RESP 18
[2019-03-19] MEDS: Ipratropium/Albuterol Sulfate 3 ML AMPUL.NEB INHALATION (21:42)
[2019-03-19 21:47] LABS: Absolute Lymphocyte Count 1.64 X10^3/uL (0.83-4.51); Absolute Neutrophil Count 10.4 X10^3/uL (2.0-7.7); Basophil# 0.04 X10^3/uL; Basophil% 0.3 % (0-1); Hematocrit 43.2 % (37-47); Hemoglobin 13.7 g/dL (12.0-15.0); Lymphocyte # 1.64 X10^3/ul (4.0); Lymphocyte % 12.5 % (19-41); Mean Corp Hgb Conc 31.7 g/dL (32-36); Mean Corpuscular Hgb 29.5 pg (27.0-32.0); Mean Corpuscular Volume 93.1 fL (81-99); Mean Platelet Vol. 8.8 fl (6.2-12.0); Monocyte# 0.78 X10^3/uL; NRBC Flagged by Analyzer 0 % (0-5); Neutrophil # 10.39 X10^3/uL (2.7-7.7); Neutrophil % 79.4 % (47-70); Platelet Count 241 K/mm3 (150-450); RBC Distribution Width CV 14.4 % (11.6-14.6); RBC Distribution Width SD 49.4 fl (35.1-43.9); Red Blood Count 4.64 M/mm3 (4.2-5.4); White Blood Count 13.1 K/mm3 (4.4-11.0)
[2019-03-19 22:00] LABS: Anion Gap 7 (5-15); BUN 12 mg/dL (7-18); BUN/Creat Ratio 14.1 RATIO (10-20); Calcium,Total 8.7 mg/dL (8.5-10.1); Chloride 108 mmol/L (98-107); Creatinine, Serum 0.85 mg/dL (0.55-1.02); EST Glomerular Filtration Rate 78 mL/min (>60); Est Glom Filt Rate - Afr Amer 95 mL/min (>60); Estimated Creatinine Clearance 75.21 ml/min; Glucose 273 mg/dL (74-106); Potassium 4.6 mmol/L (3.5-5.1); Sodium Level 141 mmol/L (136-145)
[2019-03-19] MEDS: Albuterol 2.5 MG/3 ML VIAL.NEB. INHALATION (22:50)
[2019-03-19 22:53] VITALS: PULSE 95; RESP 19
[2019-03-19 22:57] VITALS: BP 130/69; PULSE 88; RESP 14; TEMP 36.1; O2SAT 100
--- NOTE | 2019-03-20 05:16 | ED.RN ---
OPENED CHART TO FIND DEMOGRAPHICS FOR RN
--- NOTE | 2019-03-20 05:38 | ED.RN ---
DR HUSAIN MADE AWARE THAT THE PT'S TEST REVEALED POSITIVE FOR PARA INFLUENZA, STATED NO NEW TREATMENT.
== END 2019-03-19 23:19 | disposition home or self-care (01) ==
PROVIDERS: Emergency Provider Emergency Medicine; Family Provider Internal Medicine; PCP Internal Medicine
DX: J44.1 Chronic obstructive pulmonary disease with (acute) exacerbation (principal); J45.901 Unspecified asthma with (acute) exacerbation
CPT/HCPCS: 71046; 80048; 85025; 87070; 87205; 87633; 87804; 94640; 99284; A4216

== ENCOUNTER 2019-05-24 18:25 | Emergency (ER) | payer MEDICAID, SELFPAY ==
[2019-05-01 12:58] VITALS: BMI 53.3
[2019-05-24 18:26] VITALS: BP 179/109; PULSE 100; RESP 16; TEMP 36.4; O2SAT 98; BMI 52.7
--- NOTE | 2019-05-24 18:45 | CT_ITS ---
STUDY: CTA CHEST REASON FOR EXAM: Female, 39 years old. SOB,ELEVATED D DIMER,SENT FROM PCP OFFICE -- HX:ASTHMA,PE RADIATION DOSAGE (If Supplied By Facility): CTDIvol = ( 17.42 ) mGy, DLP = ( 508.09 ) mGycm TECHNIQUE: The examination was performed with the intravenous administration of IV 100mL Isovue-370. Post-processing of the angiographic images was performed, with multiplanar reformation and 3D reconstruction. Individualized dose optimization techniques were used for this CT. COMPARISON: Chest x-ray March 19, 2019. Chest CTA August 18, 2018. FINDINGS: Normal enhancement of the main pulmonary artery and right and left pulmonary arteries. There is limited enhancement of the bilateral peripheral pulmonary arteries. There is no demonstrated pulmonary embolism. Normal thoracic aorta and visualized great vessels. There is no demonstrated aortic dissection. Normal heart and pericardium. Normal mediastinum. Normal hilar regions. Normal visualized trachea and bronchi. The lungs are well expanded. Normal pulmonary parenchyma. Normal pleura. Normal chest wall structures. There are degenerative changes of thoracic spine. Normal visualized upper abdomen. CT/CTA Chest W/WO Contrast IMPRESSION: Normal CTA chest examination, without a demonstrated pulmonary embolism or arterial dissection. Electronically Signed: Duran Castillo MD at 19:53 EST , Service support ,
--- NOTE | 2019-05-24 18:46 | ED.DCSUM_ITS ---
History of Present Illness Chief Complaint: Abn Labs Detail of Chief Complaint: Elevated d-dimer Informant: Patient Narrative: Patient presents secondary to elevated d-dimer obtained at her PCPs office. Apparently 1 day last week she was very confused. As an example she states she cannot think of her mother's name, her own birthdate, her pets name, etc. Symptoms seem to resolve. She went to see her PCP a few days ago and they had encouraged her to come to the emergency room then. Patient declined. Patient had outpatient labs and a head CT done yesterday. Results indicated an elevated d-dimer and patient was sent to the emergency room for a CTA of her chest. She does report some intermittent shortness of breath. She states that she has had some aching in her left upper chest that goes through towards her left shoulder. She denies history of blood clot. - Past Medical History (1) Segmental and somatic dysfunction of cervical region Status: Chronic (2) Segmental and somatic dysfunction of lumbar region Status: Chronic (3) Segmental and somatic dysfunction of thoracic region Status: Chronic (4) Asthma Status: Chronic Past Medical History - Allergies and Home Meds Allergies/Adverse Reactions: Allergies codeine Allergy (Verified 05/24/19 18:45) Anaphylaxis propoxyphene napsylate [From Darvocet-N] Allergy (Verified 05/24/19 18:45) Rash Sulfa (Sulfonamide Antibiotics) Allergy (Verified 05/24/19 18:45) Anaphylaxis amoxicillin Adverse Reaction (Verified 05/24/19 18:45) Other YEAST INFECTIONS Primary Care Physician: Rhonda Adkins MD [Primary Care Provider] - Prior records reviewed: Yes Surgical History: noncontributory Lives: Spouse/ Significant Other Smoking Status: Current every day smoker Review of Systems General: Denies: Chills, Fever Eyes: Denies: Visual changes - bilaterally ENT: Denies: Bilateral ear pain Cardiovascular: Reports: Chest pain. Denies: Palpitations, Heart racing Respiratory: Reports: Dyspnea - Currently resolved Gastrointestinal: Denies: Abdominal pain, Vomiting Genitourinary: Denies: Dysuria Musculoskeletal: Reports: Back pain Skin: Denies: Rash Neurological: Denies: Headache, Weakness Allergy: Denies: Uticaria Physical Exam Vital Signs/Narrative: Vital Signs Temp Pulse Resp BP Pulse Ox 05/24/19 18:26 97.6 F L 100 16 179/109 H 98 Inital Vital Signs reviewed: Yes General: Well nourished, Well developed Head: Normocephalic ENT: Moist mucous membranes Neck: Supple Cardiovascular: Regular rate, Regular rhythm Respiratory: No distress, CTA bilaterally Abdomen: Soft, Nontender, Nondistended Extremities: Nontender, No edema Skin: Normal color, No rash Neurological: Alert, Oriented x3 Psychological: Normal affect Diagnostic/Tx/Re-eval Impressions Chest CTA 05/24/19 18:45 IMPRESSION: Normal CTA chest examination, without a demonstrated pulmonary embolism or arterial dissection. Electronically Signed: Duran Castillo MD at 19:53 EST , Service support , 05/24/19 18:45 CTA Chest W/WO Contrast [CT] Stat - Medical Decision Making I was able to review the patient's labs from [facility]. Renal function is normal with a creatinine of 0.77. D-dimer was 1020 with upper limit of normal being 500. Test results are discussed with the patient. At this time there is no evidence of acute chest pathology. She will be discharged home to follow-up with her doctors. ED Disposition - Plan for ED Patient: Disposition: Home or Assisted Living Diagnosis: Elevated d-dimer Instructions: D-Dimer Referrals: Rhonda Adkins MD [Primary Care Provider] - 1 Week
[2019-05-24 20:19] VITALS: BP 131/97; PULSE 83; RESP 20; O2SAT 100
== END 2019-05-24 20:19 | disposition home or self-care (01) ==
PROVIDERS: Emergency Provider Emergency Medicine; Family Provider Internal Medicine; PCP Internal Medicine
DX: R79.89 Other specified abnormal findings of blood chemistry (principal); R07.9 Chest pain, unspecified; M99.01 Segmental and somatic dysfunction of cervical region; M99.03 Segmental and somatic dysfunction of lumbar region; M99.02 Segmental and somatic dysfunction of thoracic region; J45.909 Unspecified asthma, uncomplicated; Z79.899 Other long term (current) drug therapy; F17.200 Nicotine dependence, unspecified, uncomplicated
CPT/HCPCS: 71275; 99283; Q9967; A4216

== ENCOUNTER → 2019-10-17 | Outpatient (CLI) | payer MEDICAID, SELFPAY ==
[2019-10-03 07:49] VITALS: BMI 53.8
== END | disposition home or self-care (01) ==
LOC: PSN 10:51
PROVIDERS: PCP Internal Medicine; Referring Provider Nurse Practitioner Primary Care; Visit Provider Nurse Practitioner Primary Care
DX: R00.2 Palpitations (principal)
CPT/HCPCS: 93225; 93226

== ENCOUNTER → 2019-11-13 | Outpatient (CLI) | payer MEDICAID, SELFPAY ==
[2019-11-03 12:39] VITALS: BMI 54.1
--- NOTE | 2019-11-13 13:05 | RAD_ITS ---
STUDY: X-RAY - LEFT KNEE REASON FOR EXAM: Chronic pain. TECHNIQUE: 4 view(s) of the knee. COMPARISON: Radiographs 10/02/2016. FINDINGS: Normal visualized distal femur. Normal visualized proximal tibia and fibula. Normal proximal tibiofibular articulation. There is mild joint space narrowing of the medial femorotibial compartment. Normal lateral femorotibial compartment. There are small marginal osteophytes and moderate joint space narrowing of the patellofemoral articulation. The soft tissue structures are unremarkable. RAD/Knee 4 or More Views IMPRESSION: Arthrosis of the patellofemoral and medial femorotibial compartments. Electronically Signed: Pj Sun MD at 13:54 EDT Tel , Service support ,
--- NOTE | 2019-11-13 13:05 | RAD_ITS ---
STUDY: X-RAY - RIGHT KNEE REASON FOR EXAM: Chronic pain. TECHNIQUE: 4 view(s) of the knee. COMPARISON: None. FINDINGS: Normal visualized distal femur. Normal visualized proximal tibia and fibula. Normal proximal tibiofibular articulation. There is mild joint space narrowing of the medial femorotibial compartment. Normal lateral femorotibial compartment. There are small marginal osteophytes and moderate joint space narrowing of the patellofemoral articulation. The soft tissue structures are unremarkable. RAD/Knee 4 or More Views IMPRESSION: Arthrosis of the patellofemoral and medial femorotibial compartments. Electronically Signed: Pj Sun MD at 13:53 EDT Tel , Service support ,
== END | disposition home or self-care (01) ==
LOC: HPRAD 13:05
PROVIDERS: PCP Internal Medicine; Referring Provider Physician Assistant; Visit Provider Physician Assistant
DX: M25.561 Pain in right knee (principal); M25.562 Pain in left knee
CPT/HCPCS: 73564

== ENCOUNTER 2019-11-28 11:00 | Outpatient (RCR) | payer MEDICAID, SELFPAY ==
[2019-11-13 13:08] VITALS: BMI 54.1
--- NOTE | 2019-11-16 14:59 | HP.PTEVAL_ITS ---
Patient's Visit Information DARREN REINOSO is a 39 year old F referred to Physical Therapy by SKYLAR Oliveros with a diagnosis of BILATERAL KNEE PAIN,BILATERAL PATELLA PATELLOFEMORAL SYNDROME,BILATERAL OA. Date of Evaluation: 11/16/19 Physical Therapist: Steve Villagran, PT, Cert MDT, OCS - Visit Plan Frequency: 2x /Week Duration: 4 Weeks Plan: PT INTERVETIONS AQUATIC THERAPY ROM/STRENGTHENING,FLEXABLITY BLE - Subjective This 39 y/o female presents to physical therapy with bilateral knee pain ,bilateral patellafemoral syndrome ,bilteral knee pes anserine.Patient has bilateral knee pain for 30 years. Patient pain located medial knee and global . Patient pain is decribed as sharp ,sharp ,weakness and crepitus. C/O parathesia/tingling right leg. Patient one step at time. Patient has been with walking/stairs and standing. Patient pain unable to squat ,kneeling. Patient symtoms affects sleeping. Patient seen DR recommended PT x-rays DJD. Patient condition affects DLS,housework task and function. Patient symptoms affects QOL. Patient had prior PT.Pateint has h/o falls and been on brace . SOCIAL: SINGLE. VOCATION: disablity - Pain Bilateral Knee Pain Intensity (Out of 10): 7 Pain Intensity Range: 10 - Objective POSTURE: mild foward posture knee valgus,genu recurvatum. GAIT: reciprocal pattern antalgic gait. NEURO: denies parathesia/tingling. STAIRS: one stairs at time with rail. PALAPTION: tender medial joint line. PATELLA:lateral deviation. MMT: quads/hams/hip 4-/5 abduction/extension ,ankle 4/5 - Special Tests R Knee Viridiana - Meniscus: Negative R Knee Apley - Meniscus: Negative R Knee Valgus - MCL: Negative R Knee Varus - LCL: Negative R Knee Patellar Apprehension - PFS: Positive R Knee Patellar Grind - PFS: Positive L Knee Viridiana - Meniscus: Negative L Knee Apley - Meniscus: Negative L Knee Valgus - MCL: Negative L Knee Varus - LCL: Negative L Knee Patellar Apprehension - PFS: Positive L Knee Patellar Grind - PFS: Positive - Goals Goal 1:: Independant with Aquatic PT Goal Time Frame: 4-6 Weeks Goal 2:: Pateint decrease pain by 50% or > to improve function with gait. Goal Time Frame: 4-6 Weeks Goal 3:: Patient improve AROM 0-120 degrees to improve function gait, Goal Time Frame: 4-6 Weeks Goal 4:: Patinet to increase strength quads/hams 4/5 to improve function strength Goal Time Frame: 4-6 Weeks Goal 5:: Patient improve LFES score by 5 points to improve QOL. Goal Time Frame: 4-6 Weeks - Rehabilitation Potential Physical Therapy Diagnosis: This patient has bilteral knee pain with decrease ROM,strength,stairs and function thus benifit from skilled PT Rehabilitation Potential: Fair - Anticipated Interventions Patient/Client Instruction: Educate patient on: Condition, Plan of Care For the Purpose of:: To decrease pain, To increase ROM, To improve ability to perform ADL's, To improve ability of physical actions for home/community/work/leisure, To improve gait and locomotor functions, To improve health of tissue, To decrease soft tissue restriction, To increase flexibility/ ROM, To improve endurance, To improve ability to perform tasks related to life management Therapeutic Exercise to Include: Strength training, Flexibilty training, In an aquatic setting, Active ROM For the Purpose of:: To decrease pain, To increase ROM, To improve nutrient delivery to tissue, To increase oxygenation perfusion, To improve muscle pe rformance and motor function, To increase tolerance to activity/condition/position, To improve ability of physical actions for home/community/work/leisure, To improve gait and locomotor functions, To improve health of tissue, To decrease soft tissue restriction, To increase flexibility/ROM, To improve balance, To improve health and function, To improve tolerance to ADL's Thank you for the opportunity to evaluate your patient. For Medicare and Medicare HMO plans, please review the plan of care and approve it. It will need to be FAXED BACK to us at [phone] for Medicare purposes. For Medicare only, by signing this I certify the plan of care. Please let me know if there are questions or concerns regarding this plan of care. Physician Signature: Date:
--- NOTE | 2020-01-09 15:13 | HP.PTDCNRP_ITS ---
DARREN REINOSO was seen in my office for initial evaluation on 11/16/19. The following Plan of Care was established for this patient: Initial Frequency: 2x /Week Initial Duration: 4 Weeks Patient/Client Instruction: Educate patient on: Condition, Plan of Care For the Purpose of:: To decrease pain, To increase ROM, To improve ability to perform ADL's, To improve ability of physical actions for home/community/work/leisure, To improve gait and locomotor functions, To improve health of tissue, To decrease soft tissue restriction, To increase flexibility/ROM, To improve endurance, To improve ability to perform tasks related to life management Therapeutic Exercise to Include: Strength training, Flexibilty training, In an aquatic setting, Active ROM For the Purpose of:: To decrease pain, To increase ROM, To improve nutrient deli very to tissue, To increase oxygenation perfusion, To improve muscle performance and motor function, To increase tolerance to activity/condition/position, To improve ability of physical actions for home/community/work/leisure, To improve gait and locomotor functions, To improve health of tissue, To decrease soft tissue restriction, To increase flexibility/ROM, To improve balance, To improve health and function, To improve tolerance to ADL's This patient was last seen in our office . Pertinent comments regarding their Physical therapy will appear below: Patien seen for PT in Aquatic Therapy for knee pain but s d/c due to COVID At this point I will be discontinuing this patient from physical therapy. I would be happy to see this patient again in the future if found appropriate by the physician. Thank you! Steve Vilalgran, PT, Cert MDT, OCS
== END 2019-11-28 19:00 | disposition home or self-care (01) ==
LOC: PT 11:00
PROVIDERS: PCP Internal Medicine; Referring Provider Physician Assistant; Visit Provider Physician Assistant
DX: M22.2X1 Patellofemoral disorders, right knee (principal); M22.2X2 Patellofemoral disorders, left knee; M17.0 Bilateral primary osteoarthritis of knee
CPT/HCPCS: 97113; 97162

== ENCOUNTER → 2019-12-08 | Outpatient (CLI) | payer MEDICAID, SELFPAY ==
[2019-12-07 15:20] VITALS: BMI 54.1
== END | disposition home or self-care (01) ==
LOC: LABSPEC 17:40
PROVIDERS: PCP Internal Medicine; Referring Provider Nurse Practitioner Acute Care; Visit Provider Nurse Practitioner Acute Care
DX: J20.8 Acute bronchitis due to other specified organisms (principal)
CPT/HCPCS: 87635; 94799; U0003

== ENCOUNTER 2019-12-13 22:49 | Emergency (ER) | payer MEDICAID, SELFPAY ==
[2019-12-07 15:20] VITALS: BMI 54.1
[2019-12-13 22:49] VITALS: BP 150/84; PULSE 120; RESP 18; TEMP 36.7; O2SAT 96; BMI 54.9
--- NOTE | 2019-12-13 23:09 | RAD_ITS ---
STUDY: X-RAY CHEST REASON FOR EXAM: Female, 39 years old. Cough and shortness of breath. TECHNIQUE: AP portable chest. COMPARISON: March 19, 2019. FINDINGS: The lungs are clear and expanded. There is no demonstrated pleural abnormality. Normal size heart. Normal mediastinum and lizeth. Normal visualized pulmonary arteries. Normal visualized aortic arch and descending thoracic aorta. Normal visualized thoracic spine. Normal visualized ribs, clavicles, and shoulders. There is no demonstrated abnormality of the visualized soft tissue structures of the upper abdomen. RAD/Chest 1 View (Portable) IMPRESSION: No acute cardiopulmonary disease. Electronically Signed: David Christiansen MD at 0:23 EDT , Service support ,
--- NOTE | 2019-12-13 23:10 | ED.DCSUM_ITS ---
History of Present Illness Chief Complaint: Shortness of Breath Informant: Patient Onset: Weeks - 1 Context: Gradual Onset Timing: Continuous Quality: wheezing Location: chest Current Severity: Moderate Maximum Severity: Moderate Worsened by: - - exertion. coughing. Relieved by: - - rest. only mild relief from albuterol at home TID. Associated Symptoms: Nasal Congestion, Diarrhea - only since starting doxycycline, Shortness of Breath, Chest Pain - tight and sore from coughing, Productive Cough - mucous/phlegm. 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 She is mainly complaining of chest symptoms. She is sore from lots of coughing, states that she cannot sleep because she is coughing so much, her cough is productive, she does not have the other classic COVID-19 symptoms, but is wheezing quite a bit because of her asthma although she is still taking the prednisone. She denies any fevers or chills. No known contact with [id number] persons. She does present during the national coronavirus emergency declaration/pandemic. Although this patient's COVID test is still pending, she presents with her significant other, who is a patient in a different room seen by different physician, who has similar symptoms and has similar complaints of asthma as well, and has a negative COVID test. - Past Medical History (1) Asthma Status: Chronic (2) EAMON (obstructive sleep apnea) Status: Chronic Comment: AHI 37.4 (3) Pulmonary embolism Status: Suspected Past Medical History - Allergies and Home Meds Allergies/Adverse Reactions: Allergies codeine Allergy (Verified 12/13/19 22:52) Anaphylaxis propoxyphene napsylate [From Darvocet-N] Allergy (Verified 12/13/19 22:52) Rash Sulfa (Sulfonamide Antibiotics) Allergy (Verified 12/13/19 22:52) Anaphylaxis amoxicillin Adverse Reaction (Verified 12/13/19 22:52) Other YEAST INFECTIONS Primary Care Physician: Rhonda Adkins MD [Primary Care Provider] - Smoking Status: Current every day smoker Drugs: None Review of Systems General: Reports: Malaise - I'm tired because I can't sleep due to all the coughing. Denies: Chills, Fever, Sweats Eyes: Denies: Visual changes - bilaterally, Diplopia ENT: Reports: Rhinorrhea. Denies: Bilateral ear pain, Sore throat Cardiovascular: Reports: Chest pain. Denies: Palpitations Respiratory: Reports: Dyspnea, Cough, Sputum, Dyspnea on exertion. Denies: Orthopnea Gastrointestinal: Denies: Abdominal pain, Nausea, Vomiting, Diarrhea, Melena, Hematochezia Genitourinary: Denies: Dysuria, Hematuria, Frequency Musculoskeletal: Denies: Myalgias, Neck pain, Back pain, Extremity Pain Skin: Denies: Rash, Wounds Neurological: Denies: Headache, Weakness, Numbness Physical Exam Vital Signs/Narrative: Vital Signs Temp Pulse Resp BP Pulse Ox 12/13/19 22:49 98.1 F 120 H 18 150/84 H 96 Inital Vital Signs reviewed: Yes General: Well nourished, Well developed, Obese, - - NAD. conversive in full sentences. Head: Normocephalic, Atraumatic Eyes: Perrl, EOMI Ears: Negative for: Right Mastoid Tenderness, Left Mastoid Tenderness Nose: Negative for: Congestion, Purulent Drainage Neck: Supple, Nontender, No Lymphadenopathy Cardiovascular: Regular rate, Regular rhythm, No murmurs, Tachycardia Respiratory: No distress, Chest nontender, Wheezing. Negative for: Rales, Rhonchi Abdomen: Soft, Nontender, Nondistended, Normal bowel sounds Back: Nontender, Normal Inspection Extremities: Nontender, No edema. Negative for: Calf Tenderness Skin: Normal color, No rash, No Trauma Neurological: Alert, Oriented x3, Cranial nerves II-XII grossly intact, Normal Strength, Normal Sensation, Normal Gait Psychological: Normal affect, Normal Mood Diagnostic/Tx/Re-eval - Medical Decision Making On my interpretation 1 view chest x-ray shows no acute infiltrates. She is less wheezy and breathing better after aerosols. Terbutaline and Toradol was also ordered but was not given yet prior to my reevaluation, she complains of soreness all over and the fact that she is still coughing. I state that I suspect her COVID test will be negative especially since her significant other's is negative and he had similar symptoms, and because her symptoms are less classic for it, which certainly does not rule it out, but that she probably has viral bronchitis, would be very difficult to absolutely stop her coughing. She does not want needles. I advised her that if she is hurting so bad and wheezing so bad, I would advise her to accept the minor injections that may help her, I do not think they will harm her. I prescribed her Tessalon Perles, and advised her to follow-up with her doctor if not improving although 2 weeks is fairly common for viral bronchitis which is what I suspect. Advised to continue her doxycycline anyhow. She is also on an appropriate prednisone taper starting at 40 mg which is what she is on now. ED Disposition - Plan for ED Patient: Disposition: Home or Assisted Living Diagnosis: Acute asthmatic bronchitis Instructions: ED Bronchitis Asthmatic Prescriptions: Benzonatate [Tessalon Perle] 100 mg PO TID PRN #20 cap PRN Reason: Cough Prescription Printed Referrals: Rhonda Adkins MD [Primary Care Provider] - Kamron Cobb MD [STAFF PHYSICIAN] - 1 Week if not improving
[2019-12-13 23:15] VITALS: PULSE 120; RESP 18
[2019-12-13] MEDS: Albuterol 2.5 MG/3 ML VIAL.NEB. INHALATION (23:15)
[2019-12-13] MEDS: Ipratropium/Albuterol Sulfate 3 ML AMPUL.NEB INHALATION (23:15)
[2019-12-14 00:28] VITALS: BP 150/84; PULSE 120; RESP 18; TEMP 36.7; O2SAT 96
[2019-12-14] MEDS: Terbutaline 1 MG/ML Vial 0.25 MG SC (00:28)
[2019-12-14] MEDS: Naproxen 500 MG Tablet PO (00:46)
[2019-12-14 00:47] VITALS: BP 148/60; PULSE 115; RESP 20; O2SAT 98
== END 2019-12-14 00:48 | disposition home or self-care (01) ==
PROVIDERS: Emergency Provider Emergency Medicine; PCP Internal Medicine
DX: J45.909 Unspecified asthma, uncomplicated (principal); G47.33 Obstructive sleep apnea (adult) (pediatric); F17.200 Nicotine dependence, unspecified, uncomplicated; E66.9 Obesity, unspecified; Z86.711 Personal history of pulmonary embolism
CPT/HCPCS: 71045; 87633; 94640; 96372; 99283

== ENCOUNTER 2019-12-22 02:47 | Emergency (ER) | payer MEDICAID, SELFPAY ==
[2019-12-22 02:49] VITALS: BP 152/87; PULSE 92; RESP 29; TEMP 36.8; O2SAT 95; BMI 52.2
[2019-12-22 02:54] VITALS: O2SAT 96
--- NOTE | 2019-12-22 02:59 | ED.VIS.GEN ---
History of Present Illness Chief Complaint: Shortness of Breath Informant: Patient Narrative: Patient is a 39-year-old female with a past medical history of asthma who presents to the emergency department for cough and shortness of breath. Her symptoms have been present over the past 2 weeks. She did have a coronavirus test already which was negative. She states that she has been feeling like she has had a fever but has not taken her temperature. She did have one episode of vomiting. She has had some loose bowel movements. Her boyfriend had cold-like symptoms as well but he is getting over his symptoms at this point. She does have chest wall pain. Hurts when cough as well as pushing on her chest. She has tried Mucinex for her symptoms as well as her home breathing treatments. The cough is currently dry. She is currently on a course of doxycycline. She is a current every day smoker. Denies any leg swelling or calf pain. No history of DVT/PE. Denies any abdominal pain. No back pain. One of her main concerns is that she has not been able to sleep. She states she has only slept about 4 hours over the past 64 hours given the fact she is coughing all the time. Past Medical History - Allergies and Home Meds Allergies/Adverse Reactions: Allergies codeine Allergy (Verified 12/22/19 02:52) Anaphylaxis propoxyphene napsylate [From Darvocet-N] Allergy (Verified 12/22/19 02:52) Rash Sulfa (Sulfonamide Antibiotics) Allergy (Verified 12/22/19 02:52) Anaphylaxis amoxicillin Adverse Reaction (Verified 12/22/19 02:52) Other YEAST INFECTIONS Primary Care Physician: Rhonda Adkins MD [Primary Care Provider] - Prior records reviewed: Yes Past Medical History: - - Asthma Smoking Status: Current every day smoker Review of Systems All systems negative except as indicated General: Reports: Chills, Fever, Sweats Eyes: Denies: Visual changes - bilaterally, Diplopia ENT: Denies: Rhinorrhea, Sore throat Cardiovascular: Reports: Chest pain - Chest wall. Denies: Palpitations Respiratory: Reports: Dyspnea, Cough. Denies: Sputum Gastrointestinal: Reports: Vomiting, Diarrhea. Denies: Abdominal pain, Nausea, Melena, Hematochezia Genitourinary: Denies: Dysuria, Hematuria, Frequency Musculoskeletal: Denies: Back pain, Swelling, Extremity Pain Skin: Denies: Rash, Wounds Neurological: Denies: Headache, Weakness, Numbness Physical Exam Vital Signs/Narrative: Vital Signs Temp Pulse Resp BP Pulse Ox 12/22/19 02:49 98.3 F 92 29 H 152/87 H 95 General: Well nourished, Well developed, No Acute Distress Head: Normocephalic, Atraumatic Eyes: Perrl, EOMI ENT: Moist mucous membranes, No rhinorrhea Neck: Supple, Nontender Cardiovascular: Regular rhythm, No murmurs, Tachycardia Respiratory: No distress, Wheezing, Chest tenderness, - - Mildly tachypneic, talking in full sentences. No stridor present. Abdomen: Soft, Nontender, Nondistended, Normal bowel sounds Back: Nontender, Normal Inspection Extremities: Nontender, No edema. Negative for: Edema, Calf Tenderness Skin: Normal color, No rash Neurological: Alert, Oriented x3, Cranial nerves II-XII grossly intact, Normal Strength, Normal Sensation Psychological: Normal affect, Normal Mood Diagnostic/Tx/Re-eval - Medical Decision Making Patient presents to the emergency department for cough and shortness of breath. Upon arrival to the emergency department she is mildly tachypneic and mildly tachycardic. Does not appear in any acute distress. Has a dry cough throughout exam. She Vaibhav had a coronavirus test that was negative. Given the poor sensitivity of this test will repeat today. Basic lab work being obtained along with repeat chest x-ray. We will give a DuoNeb breathing treatment as she has wheezing on physical exam. Patient satting well throughout ED stay. She does have a hoarse voice. She does have wheezing on exam which does seem to be improved after breathing treatment. Respiratory rate has come down. Patient was actually sleeping on reexamination. Will write her a prednisone prescription given her asthma. She has Tessalon Perles at home she can continue to take. This is likely a viral URI and will take some time to get over. She otherwise is to follow-up with her PCP. If she develops any significant shortness of breath she is to return to the emergency department immediately. Patient to self isolate until results for coronavirus return. Have low suspicion that she does not have a low white blood cell count. No evidence of groundglass opacities on the chest x-ray. She understands and is agreeable this plan. Will discharge home in stable condition. ED Disposition - Plan for ED Patient: Disposition: Home or Assisted Living Diagnosis: Cough, Dyspnea, Asthma, Viral bronchitis Instructions: ED Bronchitis Asthmatic, ED Upper Resp Infec No Abx Tx Prescriptions: Prednisone [Deltasone] 40 mg PO DAILY 4 Days #8 tab Transmission Status: Received by [facility] - [place] - [id number] Referrals: Rhonda Adkins MD [Primary Care Provider] -
[2019-12-22 03:03] LABS: Absolute Lymphocyte Count 3.44 X10^3/uL (0.83-4.51); Absolute Neutrophil Count 9.5 X10^3/uL (2.0-7.7); Basophil# 0.03 X10^3/uL; Basophil% 0.2 % (0-1); Eosinophil# 0.09 X10^3/uL; Eosinophils% 0.6 % (0-5); Hematocrit 43.8 % (37-47); Hemoglobin 13.5 g/dL (12.0-15.0); Lymphocyte # 3.44 X10^3/ul (4.0); Lymphocyte % 24.3 % (19-41); Mean Corp Hgb Conc 30.8 g/dL (32-36); Mean Corpuscular Hgb 29.1 pg (27.0-32.0); Mean Corpuscular Volume 94.4 fL (81-99); Mean Platelet Vol. 8.9 fl (6.2-12.0); Monocyte# 1.05 X10^3/uL; Monocyte% 7.4 % (0-10); NRBC Flagged by Analyzer 0 % (0-5); Neutrophil # 9.45 X10^3/uL (2.7-7.7); Neutrophil % 66.8 % (47-70); Platelet Count 269 K/mm3 (150-450); RBC Distribution Width CV 13.7 % (11.6-14.6); RBC Distribution Width SD 47.7 fl (35.1-43.9); Red Blood Count 4.64 M/mm3 (4.2-5.4); White Blood Count 14.2 K/mm3 (4.4-11.0)
[2019-12-22 03:08] VITALS: PULSE 85; RESP 20
[2019-12-22] MEDS: Ipratropium/Albuterol Sulfate 3 ML AMPUL.NEB INHALATION (03:08)
[2019-12-22 03:33] LABS: Anion Gap 4 (5-15); BUN 7 mg/dL (7-18); BUN/Creat Ratio 9.2 RATIO (10-20); Chloride 106 mmol/L (98-107); Creatinine, Serum 0.76 mg/dL (0.55-1.02); EST Glomerular Filtration Rate 88 mL/min (>60); Est Glom Filt Rate - Afr Amer 107 mL/min (>60); Estimated Creatinine Clearance 87.66 ml/min; Glucose 98 mg/dL (74-106); Magnesium 2.5 mg/dL (1.6-2.6); Potassium 3.9 mmol/L (3.5-5.1); Sodium Level 140 mmol/L (136-145)
--- NOTE | 2019-12-22 03:43 | RAD_ITS ---
HISTORY: sob, cough, chest pain x 4 days. ADDITIONAL HISTORY: None provided. EXAMINATION/TECHNIQUE: XR Chest 1 View AP/PA Number of images including paperwork: 1 COMPARISON: 12/13/2019 FINDINGS: LUNGS AND PLEURA: No consolidation, mass or pleural effusion. Peribronchial thickening. CARDIAC SILHOUETTE: Unremarkable. MEDIASTINUM AND MAOG: Unremarkable. UPPER ABDOMEN: Unremarkable. SKELETON AND SOFT TISSUES: No acute skeletal findings. OTHER DEVICES AND HARDWARE: None. RAD/Chest 1 View (Portable) IMPRESSION: Peribronchial thickening as can be seen with bronchitis and airways disease. at [id number] Reported and signed by: Kelli Gregorio MD Electronically Signed: Kelli Gregorio MD at 4:40 EDT Tel , Service support ,
[2019-12-22 03:49] VITALS: BP 142/78; PULSE 90; RESP 26; TEMP 36.9; O2SAT 97
[2019-12-22 04:55] VITALS: BP 140/86; PULSE 92; RESP 22; O2SAT 96
[2019-12-22] MEDS: predniSONE 20 MG Tablet 40 MG PO (04:58)
== END 2019-12-22 05:07 | disposition home or self-care (01) ==
PROVIDERS: Emergency Provider Emergency Medicine; PCP Internal Medicine
DX: R05 Cough (principal); R06.00 Dyspnea, unspecified; J45.909 Unspecified asthma, uncomplicated; J20.8 Acute bronchitis due to other specified organisms; F17.200 Nicotine dependence, unspecified, uncomplicated
CPT/HCPCS: 71045; 80048; 83735; 84484; 85025; 87635; 94640; 94799; 99284; A4216; U0003

== ENCOUNTER → 2020-04-05 11:39 | Outpatient (CLI) | payer MEDICAID, SELFPAY ==
[2020-03-20 10:17] VITALS: BMI 51.5
== END ==
PROVIDERS: PCP Internal Medicine; Referring Provider Nurse Practitioner Acute Care; Visit Provider Nurse Practitioner Acute Care
DX: R05 Cough (principal)
CPT/HCPCS: 87633

== ENCOUNTER → 2020-11-12 | Outpatient (CLI) | payer MEDICAID, SELFPAY ==
[2020-05-14 12:46] VITALS: BMI 52.9
[2020-11-12 13:15] LABS: BNP,B-Type NATRIURETIC PEPTIDE 3.1 pg/mL (0-100)
== END | disposition home or self-care (01) ==
LOC: LABSPEC 12:48
PROVIDERS: PCP Internal Medicine; Visit Provider Nurse Practitioner
DX: R06.02 Shortness of breath (principal); R60.0 Localized edema
CPT/HCPCS: 83880

== ENCOUNTER → 2021-03-12 13:21 | Outpatient (CLI) | payer MEDICAID, SELFPAY | PROVIDERS: PCP Internal Medicine; Referring Provider Nurse Practitioner Acute Care; Visit Provider Nurse Practitioner Acute Care | DX: J45.909 Unspecified asthma, uncomplicated (principal) | CPT/HCPCS: 87070; 87205 ==

== ENCOUNTER 2022-08-03 10:46 | Day surgery (SDC) | payer MEDICAID, SELFPAY ==
--- NOTE | 2022-08-03 11:10 | RAD_ITS ---
PROCEDURE: Caudal block. DATE OF EXAMINATION: August 03, 2022. INDICATION: Female, 42 years old. Low back pain. FLUOROSCOPY TIME (if supplied): (9.6 seconds) minutes/seconds. 2 images were submitted. RADIATION DOSAGE (If Supplied By Facility): ( 8.54 ) mGycm RAD/Fluor Guidance for Spine Inj IMPRESSION: Intraoperative imaging provided for caudal block. Electronically Signed: Kong Glez MD at 13:44 EDT ,
[2022-08-03] MEDS: Lactated Ringers 1,000 ML 15 ML IV (11:18)
[2022-08-03 11:19] VITALS: BP 141/81; PULSE 89; RESP 20; TEMP 36.7; O2SAT 100; BMI 54.3
[2022-08-03] MEDS: Lidocaine 1% (5 ml sdv) 5 ML Vial (11:45)
[2022-08-03] MEDS: 0.9% Normal Saline (Pres. free 10 ML Vial (11:45)
[2022-08-03] MEDS: MethylPREDNISolone Acetate 80 MG/ML Vial (11:45)
--- NOTE | 2022-08-03 11:48 | OP.PCM_ITS ---
Report of Operation Date of Procedure: 08/03/22 Pre-Operative Diagnosis: Lumbosacral radiculopathy, lumbosacral degenerative di sc disease, lumbosacral spinal stenosis Post-Operative Diagnosis: Lumbosacral radiculopathy, lumbosacral degenerative disc disease, lumbosacral spinal stenosis Surgery/Procedure Performed:: Diagnostic/therapeutic caudal epidural steroid injection under fluoroscopic guidance Type of Anesthesia: MAC Estimated Blood Loss (mL): Minimal Description of Procedure: DESCRIPTION OF PROCEDURE: History and physical of today was reviewed. Risks and benefits of the procedure were explained. The patient understood and agreed to proceed. Informed consent was obtained. IV inserted per routine protocol. The patient was taken to the operating room and placed in the prone position with a pillow positioned underneath the abdomen. The lower back and tailbone area was prepped and draped in a sterile fashion using iodine x3. Under fluoroscopy guidance on a lateral view, the caudal space was identified. The skin and subcutaneous tissue was anesthetized with approximately 3 mL of 1% lidocaine using a 25-gauge regular needle. Under direct visualization with fluoroscopy, using a 22-gauge 3-1/2-inch spinal needle, the needle was advanced via the skin through the sacral hiatus. The tip of the needle was passed through the sacrococcygeal ligament and advanced to approximately S4 area. After negative aspiration of blood or CSF, a total of 3 mL of contrast was injected to confirm correct placement of the needle as well as cephalad spread. The spread was followed to approximately L5 area. After confirmation on AP as well as lateral view and repeated negative aspiration, a total of 15 mL of preservative-free 0.125% Marcaine with 80 mg of Depo-Medrol was injected easily. The needle was then removed intact. The patient experienced no sign or symptoms of intrathecal or intravascular injection. The patient experienced no paresthesia. The procedure was completed without any apparent difficulty or any complications. The patient appeared to tolerate it well. ASSESSMENT AND PLAN: This is a 42-year-old female with lumbosacral radiculopathy, lumbosacral degenerative disc disease, lumbosacral spinal stenosis status post caudal epidural steroid injection, patient will continue her current medications, patient will follow in approximately 2 weeks for reevaluation. Complications None
[2022-08-03 11:53] VITALS: BP 110/68; BP 141/81; PULSE 93; RESP 20; TEMP 35.6; O2SAT 97
[2022-08-03 11:58] VITALS: BP 120/72; BP 141/81; PULSE 81; RESP 18; O2SAT 98
[2022-08-03 12:00] VITALS: BP 141/81; BP 97/50; PULSE 82; RESP 18; O2SAT 100
[2022-08-03 12:01] VITALS: BP 110/82; BP 141/81; PULSE 81; RESP 18; TEMP 36.6; O2SAT 100
[2022-08-03 12:25] VITALS: BP 141/81
== END 2022-08-03 12:34 | disposition home or self-care (01) ==
LOC: SDC 10:48 → AC 10:49
PROVIDERS: PCP Internal Medicine; Referring Provider Anesthesiology Pain Medicine; Visit Provider Anesthesiology Pain Medicine
PROC: 3E0S3BZ Introduction of Anesthetic Agent into Epidural Space, Percutaneous Approach (ICD-10-PCS; CPT 62282; principal; 2022-08-03 12:05)
DX: M51.17 Intervertebral disc disorders with radiculopathy, lumbosacral region (principal); J44.9 Chronic obstructive pulmonary disease, unspecified; E66.01 Morbid (severe) obesity due to excess calories; Z68.43 Body mass index [BMI] 50.0-59.9, adult; E11.9 Type 2 diabetes mellitus without complications; M48.07 Spinal stenosis, lumbosacral region; J45.20 Mild intermittent asthma, uncomplicated; I10 Essential (primary) hypertension; Z99.81 Dependence on supplemental oxygen; Z79.890 Hormone replacement therapy; Z79.899 Other long term (current) drug therapy; E07.9 Disorder of thyroid, unspecified
CPT/HCPCS: 62323; 64483; 77003; J7120; J3490

== ENCOUNTER 2023-01-04 09:51 | Day surgery (SDC) | payer MEDICAID, SELFPAY ==
--- NOTE | 2023-01-04 10:25 | RAD_ITS ---
EXAMINATION: Fluoroscopic guided caudal block. INDICATION: PAIN Total Fluoroscopic Time: 15 seconds AND number of Fluoroscopic Images: 1 OR Radiation dosage index: 14.92 mGy COMPARISON: None. FINDINGS: Limited intraoperative fluoroscopic images from caudal block submitted for review. There is intraoperative placement of a needle at the level of the coccyx. RAD/Fluor Guidance for Spine Inj IMPRESSION: Fluoroscopic guided caudal block procedure. Please see intraoperative report for further details. Electronically Signed: Michael Velasco DO at 13:09 EDT ,
[2023-01-04 10:52] VITALS: BP 120/80; PULSE 75; RESP 20; TEMP 36.9; O2SAT 97; BMI 53.3
[2023-01-04 10:52] LABS: Bedside Glucose 111 mg/dL (74-106)
[2023-01-04] MEDS: 0.9% Normal Saline (Pres. free 10 ML Vial (11:05)
[2023-01-04] MEDS: MethylPREDNISolone Acetate 80 MG/ML Vial (11:30)
[2023-01-04] MEDS: Lidocaine 1% (5 ml sdv) 5 ML Vial (11:31)
--- NOTE | 2023-01-04 11:37 | OP.PCM_ITS ---
Report of Operation Date of Procedure: 01/04/23 Pre-Operative Diagnosis: Lumbosacral radiculopathy, lumbosacral degenerative di sc disease, lumbosacral spinal stenosis Post-Operative Diagnosis: Lumbosacral radiculopathy, lumbosacral degenerative disc disease, lumbosacral spinal stenosis Surgery/Procedure Performed:: Diagnostic/therapeutic caudal epidural steroid injection under fluoroscopic guidance Type of Anesthesia: MAC Estimated Blood Loss (mL): Minimal Description of Procedure: DESCRIPTION OF PROCEDURE: History and physical of today was reviewed. Risks and benefits of the procedure were explained. The patient understood and agreed to proceed. Informed consent was obtained. IV inserted per routine protocol. The patient was taken to the operating room and placed in the prone position with a pillow positioned underneath the abdomen. The lower back and tailbone area was prepped and draped in a sterile fashion using iodine x3. Under fluoroscopy guidance on a lateral view, the caudal space was identified. The skin and subcutaneous tissue was anesthetized with approximately 3 mL of 1% lidocaine using a 25-gauge regular needle. Under direct visualization with fluoroscopy, using a 22-gauge 3-1/2-inch spinal needle, the needle was advanced via the skin through the sacral hiatus. The tip of the needle was passed through the sacrococcygeal ligament and advanced to approximately S4 area. After negative aspiration of blood or CSF, a total of 3 mL of contrast was injected to confirm correct placement of the needle as well as cephalad spread. The spread was followed to approximately L5 area. After confirmation on AP as well as lateral view and repeated negative aspiration, a total of 15 mL of preservative-free 0.125% Marcaine with 80 mg of Depo-Medrol was injected easily. The needle was then removed intact. The patient experienced no sign or symptoms of intrathecal or intravascular injection. The patient experienced no paresthesia. The procedure was completed without any apparent difficulty or any complications. The patient appeared to tolerate it well. ASSESSMENT AND PLAN: This is a 42-year-old female with lumbosacral radiculopathy, lumbosacral degenerative disc disease, lumbosacral spinal stenosis status post diagnostic/therapeutic caudal epidural steroid injection, patient will continue her current medications, patient will follow in approximately 2 weeks for reevaluation. Complications None
[2023-01-04 11:40] VITALS: BP 120/80; BP 131/73; PULSE 79; RESP 18; TEMP 37.1; O2SAT 95
[2023-01-04 11:45] VITALS: BP 120/80; BP 130/74; PULSE 76; RESP 16; O2SAT 96
[2023-01-04 11:50] VITALS: BP 120/80; BP 126/76; PULSE 75; RESP 16; O2SAT 94
[2023-01-04 11:55] VITALS: BP 120/52; BP 120/80; PULSE 75; RESP 16; TEMP 36.9; O2SAT 97
[2023-01-04 12:14] VITALS: BP 120/80
--- NOTE | 2023-02-03 15:19 | HP.PCM_ITS ---
HPI - General General Date of Admission: 01/04/23 Date of Service: 01/04/23 HPI Narrative Chief Complaint: Pain in neck, upper-lower back, bilateral legs History of Present Illness: This is a 42 Y/O female who was seen and evaluated at our office today as a follow up. At her last visit, she was concerned with her left shoulder and cervical spine, but canceled her injection in the left shoulder and notes it now isn't bothering her much. She is now preoccupied with bilateral low back pain, worse on the right, with radicular symptoms into the right thigh. She notes both of her knees are painful as well. Pain: neck,upper back,low back,bilateral legs Quality: constant,varies in intensity Region: pain in the neck into the upper back,pain in the lower back and pain,numbness down the bilateral legs. Severity: dull-intense aching,numbness,occasional sharp pain Timin years Aggravated by: activity,laying a certain way Relieved by: nothing Pain score (out of 10): 710 Other info: Patient is here for a follow up.Reports increased pain in the lower back that radiates across and has pain,numbness down the bilateral legs.Reports stiffness,pain and soreness down bilateral legs.Reports pain in her neck into the upper back, reports she is having numbness in the left thumb and has some pain in the left shoulder,reports pain in both knees.States the pain is constant varies in intensity.Wants to discuss something to take the edge off her pain.States her pain interferes with her enjoyment of life. Review of Systems: Notes stomach issues. Patient denies any recent fever, chills, headache, change in weight without trying, vision or hearing problems. N o cp or peripheral edema but reports SOB. They note no lumps or swollen glands, no new rashes, changing moles, or change in bowel or bladder function. Mood has been depressed, irritable. Past Medical History: h/o anxiety h/o dysmenorrhea h/o hearing loss h/o ovarian cyst h/o fatigue h/o asthma h/o hypothyroid h/o mood disorder h/o Arthritis s/p Bilateral tubal ligation s/p ovarian cyst removed s/p left ankle ORIF s/p left carpal tunnel release s/p right carpal tunnel release s/p tonsillectomy Family History: ======== Structured Family History ======== Mother: Heart disease Sister: Drug addiction Social History: [Tobacco: Current some day smoker (0 ppd x 0 yrs = 0 pk yrs) Start Date: 11/21/2021 Pipe Smoker: No Cigar Smoker: No Chewing Tobacco User: No Electronic Cigarette User: No] Living situation: engaged 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 drugs: marijuana, h/o heroin and crack cocaine use. sober for 16 years Allergies: amoxicillin, codeine, sulfa drug, Darvocet A500 Medications: 1) Albuterol (Eqv-Proventil HFA) 90 mcg/inh inhalation aerosol, inhale q4h prn wheezing 2) atorvastatin 10 mg oral tablet, Take 1 tablet by mouth once daily 3) bentyl oral tablet, Take 1 tablet by mouth up to tid 4) DULoxetine 20 mg oral delayed release capsule, Take 1 capsule by mouth once daily 5) famotidine 20 mg oral tablet, Take 1 tablet by mouth 2 times a Day 6) fluticasone 50 mcg/inh nasal spray, 2 sprays in each nostril daily 7) furosemide 40 mg oral tablet, Take 1 tablet by mouth once daily 8) ibuprofen 600 mg oral tablet, Take 1 tablet by mouth every 6 hours as needed for pain 9) LaMICtal 100 mg oral tablet, Take 1 tablet by mouth once daily 10) levothyroxine 50 mcg (0.05 mg) oral tablet, Take 1 tablet by mouth once daily 11) Metoprolol Tartrate 25 mg oral tablet, Take 1 tablet by mouth 2 times a Day 12) omeprazole 40 mg oral delayed release capsule, Take 1 capsule by mouth every morning 13) ondansetron 4 mg oral tablet, Take 1 tablet by mouth prn 14) Potassium Chloride (Eqv-K-Tab) 10 mEq oral tablet, extended release, Take 1 tablet by mouth every morning 15) PT to eval and treat Physical Examination: Wt: 308.8 lb Ht/Ln: 62 in BMI: 56.5 BP: 128/80 Pulse: 88 RR: 18 Temp: 97.9F Well nourished and well developed over weight in no acute distress. Alert and oriented to person, place and time. Affect is normal and appropriate. Mucosa pink and moist. Respirations even and unlabored. Neck is supple without significant lymphadenopathy or thyromegaly. Abdomen soft & non-tender. No HSM or masses appreciated. Extremities show no cyanosis, no clubbing, and 2+ edema. Gait is antalgic without assistance device. Bilateral lumbar facet loading is positive. Lumbar paraspinal muscle tenderness, worse on the right. Lumbar ROM is limited due to pain. Bilateral cervical facet loading is positive. Cervical paraspinal muscle tenderness. Cervical ROM is limited due to pain. Motor and sensory exam is unchanged. 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 (Transmitted by TATE HOLLINS CNP) (no OTC NSAIDs) Continue home medications. I recommend that she contact her PCP to have her Mg level checked given her leg pain and restlessness. OARRS was reviewed today. UDS was reviewed, pt appears compliant. SOAPP score is 9 Discussed with the pt today not to use OTC NSAID and they appear to understand. Discussed the common side effects of this medication and the need to follow-up regularly and alert me if any evidence of stomach upset, bleeding, black tarry stool, or BRBPR. Patient verbalizes understanding. Xray of the lumbar spine was reviewed with the pt today and they appear to understand. Xray of the left shoulder was reviewed with the pt today and they appear to understand. There are no signs of diversion or addiction with the pt, there is also no signs of abuse or misuse, continues to do well with their medications without any side effects, we will continue monitoring the pt closely. Risks and benefits of the above meds were discussed with the pt and they appear to understand. Reviewed with the pt today our opioid agreement and they appear to understand. PEG was reviewed today. Life style modifications were also discussed today and the pt appears to understand. Smoking cessation was discussed today and pt was encouraged. Weight loss was recommended today through diet and exercise. The common side effects of the medications were discussed and all of their questions and concerns were answered and they appear to understand. Discussed natural and expected course of this diagnosis and need to alert me if symptoms do not follow expected course, or if any worse. Pt is to continue with her HEP. We will schedule the pt for a therapeutic/diagnostic caudal epidural steroid injection under fluoroscopy, as she has had excellent results with this procedure in the past 4 months, but relief has subsided. We have discussed the risks, benefits as well as alternatives of the procedure and the patient appears to understand and would like to proceed with the above plan. The above plan was discussed today with the pt in details and they appear to understand and agrees to continue with the plan. [facility] Medical History Acute bronchitis due to human metapneumovirus Acute respiratory failure with hypoxia Anxiety Arthritis Asthma Asthma Back pain Bronchitis Chronic cough COPD (chronic obstructive pulmonary disease) Depression Diabetes Diarrhea Fatty liver Gastric reflux History of alcohol abuse History of echocardiogram History of edema History of Holter monitoring History of irregular heartbeat History of trigger finger Hypertension Hypoxemia Mild intermittent asthma Morbid obesity with BMI of 50.0-59.9, adult Nausea Nausea and vomiting On home oxygen therapy Shortness of breath on exertion Smoker Thyroid disease Viral bronchitis Home Medications nortriptyline 10 mg capsule 25 mg PO QHS leg 10/02/16 [History Last Taken 08/17/17] atorvastatin 10 mg tablet 10 mg PO QHS 05/24/19 [History Last Taken Unknown] ipratropium 0.5 mg-albuterol 3 mg (2.5 mg base)/3 mL nebulization soln 3 ml IH Q6H PRN PRN Sob &/Or Wheezing 05/24/19 [History Last Taken Unknown] furosemide 40 mg tablet 40 mg PO DAILY #5 tabs 10/03/19 [Rx Last Taken Unknown] metoprolol succinate 25 mg tablet,extended release 24 hr 25 mg PO BID 11/02/19 [History Last Taken 01/04/23] famotidine 20 mg tablet (Pepcid) 40 mg PO DAILY 11/13/19 [History Last Taken 01/04/23] levothyroxine 50 mcg capsule 50 mcg PO DAILY 05/15/21 [History Last Taken 01/04/23] montelukast 10 mg tablet 10 mg PO DAILY #30 tabs 07/11/21 [Rx Last Taken Unknown] albuterol sulfate 90 mcg/actuation aerosol inhaler 2 puff inhalation Q4H PRN PRN Asthma #8.5 grams 10/27/21 [Rx Last Taken Unknown] budesonide-formoterol HFA 160 mcg-4.5 mcg/actuation aerosol inhaler (Symbicort) 2 puff inhalation BID #1 ea 01/22/22 [Rx Last Taken Unknown] omeprazole 20 mg capsule,delayed release 20 mg PO QHS 05/01/22 [History Last Ta nehemiah 01/04/23] guaifenesin 1,200 mg tablet, extended release 12 hr 1,200 mg PO Q12H PRN congestion #60 tabs 06/23/22 [Rx Last Taken Unknown] promethazine 25 mg tablet 25 mg PO TID PRN Nausea 07/27/22 [History Last Taken Unknown] lamotrigine 100 mg tablet 200 mg PO QHS 07/31/22 [History Last Taken Unknown] ondansetron 4 mg disintegrating tablet 4 mg PO Q8H 07/31/22 [History Last Taken Unknown] potassium chloride 10 mEq capsule,extended release 10 meq PO DAILY 07/31/22 [History Last Taken Unknown] cetirizine 10 mg capsule 10 mg PO HS #30 caps 08/04/22 [Rx Last Taken Unknown] Allergy/AdvReac Type Severity Reaction Status Date / Time codeine Allergy Anaphylaxis Verified 01/04/23 10:46 propoxyphene napsylate Allergy Rash Verified 01/04/23 10:46 [From Darvocet-N] Sulfa (Sulfonamide Allergy Anaphylaxis Verified 01/04/23 10:46 Antibiotics) amoxicillin AdvReac Other Verified 01/04/23 10:46 Family History Mother Heart disease Father Hypertension Other Arthritis Cervical cancer Depression Surgical History H/O elbow surgery History of carpal tunnel surgery Hx of thumb surgery Hx of tubal ligation Social History Smoking Status: Current every day smoker tobacco type: cigarettes second hand exposure: Yes alcohol intake: current alcohol intake frequency: a few times a month Alcohol type: wine substance use type: marijuana Vital Signs Vital Signs Vital Signs: Weight Weight: 141 kg Body Mass Index (BMI) 53.3
== END 2023-01-04 12:27 | disposition home or self-care (01) ==
LOC: SDC 09:53 → AC 10:14
PROVIDERS: PCP Internal Medicine; Referring Provider Anesthesiology Pain Medicine; Visit Provider Anesthesiology Pain Medicine
PROC: 3E0S3BZ Introduction of Anesthetic Agent into Epidural Space, Percutaneous Approach (ICD-10-PCS; CPT 62282; principal; 2023-01-04 11:20)
DX: M51.17 Intervertebral disc disorders with radiculopathy, lumbosacral region (principal); J44.9 Chronic obstructive pulmonary disease, unspecified; E66.01 Morbid (severe) obesity due to excess calories; Z68.43 Body mass index [BMI] 50.0-59.9, adult; E11.9 Type 2 diabetes mellitus without complications; M48.07 Spinal stenosis, lumbosacral region; J45.20 Mild intermittent asthma, uncomplicated; G47.33 Obstructive sleep apnea (adult) (pediatric); Z99.81 Dependence on supplemental oxygen; I10 Essential (primary) hypertension; E03.9 Hypothyroidism, unspecified; M47.27 Other spondylosis with radiculopathy, lumbosacral region; M50.30 Other cervical disc degeneration, unspecified cervical region; M25.562 Pain in left knee; M25.561 Pain in right knee; Z79.51 Long term (current) use of inhaled steroids; Z79.899 Other long term (current) drug therapy; Z79.890 Hormone replacement therapy
CPT/HCPCS: 62323; 64483; 77003; 82962; J7120; J3490

== ENCOUNTER 2023-02-15 07:59 | Day surgery (SDC) | payer MEDICAID, SELFPAY ==
[2023-02-15] MEDS: Lactated Ringers 1,000 ML 15 ML IV (08:33)
[2023-02-15 08:34] VITALS: BP 160/82; PULSE 92; RESP 18; TEMP 36.7; O2SAT 94; BMI 54.9
[2023-02-15 08:43] LABS: Bedside Glucose 132 mg/dL (74-106)
--- NOTE | 2023-02-15 09:39 | OP.PCM_ITS ---
Report of Operation Date of Procedure: 02/15/23 Description of Surgical Findings:: Pre-Operative Diagnosis: Lumbosacral spondylosis, lumbosacral degenerative disc disease, lumbar facet arthropathy Post-Operative Diagnosis: Lumbosacral spondylosis, lumbosacral degenerative disc disease, lumbar facet arthropathy PROCEDURE PERFORMED: Bilateral lumbar medial branch block at, L4, L5, and S1. ANESTHESIA: MAC. BLOOD LOSS: Minimal. COMPLICATIONS: None. DESCRIPTION OF PROCEDURE: History and physical of today was reviewed. Risks and benefits of the procedure were explained. The patient understood and agreed to proceed. Informed consent was obtained. IV inserted per routine protocol. The patient was taken to the operating room and placed in the prone position with a pillow positioned underneath the abdomen. The lower back area was prepped and draped in a sterile fashion using iodine x3. Under fluoroscopy guidance on AP view, the L4 through S1 vertebral bodies were visualized. The skin and subcutaneous tissue was anesthetized with approximately 5 mL of 1% lidocaine using a 25-gauge regular needle. Under direct visualization with fluoroscopy, at approximately 25-degree angle, starting on the left L4, ending on the right L4, passing through the L5 and S1 bilaterally, using a 22-gauge 3-1/2-inch spinal needle, the needle was advanced via the skin. The tip of the needle was maneuvered and directed towards the superior medial gutter of the transverse process at the vicinity of the medial branch. Once tip of the needle was in contact with the bone, the needle was pulled approximately 2 mm off the bone. After negative aspiration for blood or CSF and confirmation on AP, obliqu e as well as lateral view, a total of 12 mL of preservative-free 0.25% Marcaine with 80 mg of Depo-Medrol was injected in divided doses between those six levels. The needles were then removed intact. The patient experienced no sign or symptoms of intrathecal or intravascular injection. The patient experienced no paresthesia. The procedure was completed without any apparent difficulty or any complications. The patient appeared to tolerate it well. ASSESSMENT AND PLAN: This is a 43-year-old female with lumbosacral spondylosis, lumbosacral degener ative disc disease, lumbar facet arthropathy status post bilateral lumbar medial branch block at L4-S1, patient will continue her current medications, patient will follow in approximately 1 to 2 weeks for reevaluation.
--- NOTE | 2023-02-15 09:44 | RAD_ITS ---
PROCEDURE: Bilateral medial branch nerve block of the L4-S1 level. DATE OF EXAMINATION: February 15, 2023. INDICATION: Female, 43 years old. Chronic low back pain. FLUOROSCOPY TIME (if supplied): (19.2 seconds) minutes/seconds. 12.6 mGy. 6 images were submitted. RAD/L/S Spine Min 4 Views IMPRESSION: Intraoperative fluoroscopic services provided for bilateral L4-S1 medial branch nerve block. Electronically Signed: Kong Glez MD at 11:29 EDT ,
[2023-02-15] MEDS: Lidocaine 1% (5 ml sdv) 5 ML Vial (09:53)
[2023-02-15] MEDS: Bupivacaine 0.25% 30 ML Vial (09:53)
[2023-02-15] MEDS: MethylPREDNISolone Acetate 80 MG/ML Vial (09:53)
[2023-02-15 10:05] VITALS: BP 145/97; BP 160/82; PULSE 82; RESP 16; TEMP 36.2; O2SAT 98
[2023-02-15 10:10] VITALS: BP 138/86; BP 160/82; PULSE 84; RESP 16; O2SAT 95
[2023-02-15 10:15] VITALS: BP 134/69; BP 160/82; PULSE 82; RESP 16; O2SAT 98
[2023-02-15 10:18] VITALS: BP 138/81; BP 160/82; PULSE 84; RESP 16; TEMP 36.3; O2SAT 98
[2023-02-15 10:31] VITALS: BP 160/82
== END 2023-02-15 10:43 | disposition home or self-care (01) ==
LOC: SDC 08:02 → AC 08:02
PROVIDERS: PCP Internal Medicine; Referring Provider Anesthesiology Pain Medicine; Visit Provider Anesthesiology Pain Medicine
PROC: 3E0S3BZ Introduction of Anesthetic Agent into Epidural Space, Percutaneous Approach (ICD-10-PCS; CPT 62322; principal; 2023-02-15 09:35)
DX: M47.817 Spondylosis without myelopathy or radiculopathy, lumbosacral region (principal); M46.96 Unspecified inflammatory spondylopathy, lumbar region; M51.37 Other intervertebral disc degeneration, lumbosacral region; M25.812 Other specified joint disorders, left shoulder; M54.17 Radiculopathy, lumbosacral region; M50.30 Other cervical disc degeneration, unspecified cervical region; E03.9 Hypothyroidism, unspecified; G47.33 Obstructive sleep apnea (adult) (pediatric); F41.9 Anxiety disorder, unspecified; F32.A Depression, unspecified; I10 Essential (primary) hypertension; Z99.81 Dependence on supplemental oxygen; Z79.899 Other long term (current) drug therapy
CPT/HCPCS: 64493; 64494; 01992; 64483; 72110; 82962; J7120

== ENCOUNTER 2023-05-03 09:02 | Day surgery (SDC) | payer MEDICAID, SELFPAY ==
[2023-05-03] VITALS (8 sets, daily range): BP systolic 121–149; BP diastolic 59–82; PULSE 86–98; RESP 16–18; TEMP 36.3–36.8; O2SAT 95–98; BMI 56.6
[2023-05-03] MEDS: Lactated Ringers 1,000 ML 15 ML IV (09:40)
[2023-05-03] MEDS: Ipratropium/Albuterol Sulfate 3 ML AMPUL.NEB INHALATION (09:54)
[2023-05-03 10:15] LABS: Bedside Glucose 150 mg/dL (74-106)
--- NOTE | 2023-05-03 10:43 | RAD_ITS ---
PROCEDURE: Caudal epidural steroid injection. DATE OF EXAMINATION: May 03, 2023. INDICATION: Female, 43 years old. Chronic low back pain. FLUOROSCOPY TIME (if supplied): (10 seconds) minutes/seconds. 12.41 mGy. One image was submitted. RAD/Spine 1 View Any Level IMPRESSION: Intraoperative fluoroscopic services provided for caudal epidural steroid injection. Electronically Signed: Kong Glez MD at 13:04 EST ,
[2023-05-03] MEDS: MethylPREDNISolone Acetate 80 MG/ML Vial (10:49)
[2023-05-03] MEDS: 0.9% Normal Saline (Pres. free 10 ML Vial (10:51)
[2023-05-03] MEDS: Lidocaine 1% (5 ml sdv) 5 ML Vial (10:51)
--- NOTE | 2023-05-03 12:49 | OP.PCM_ITS ---
Report of Operation Date of Procedure: 05/03/23 Pre-Operative Diagnosis: Lumbosacral radiculopathy, lumbosacral degenerative di sc disease, lumbosacral spinal stenosis Post-Operative Diagnosis: Lumbosacral radiculopathy, lumbosacral degenerative disc disease, lumbosacral spinal stenosis Surgery/Procedure Performed:: Diagnostic/therapeutic caudal epidural steroid injection under fluoroscopic guidance Type of Anesthesia: MAC Estimated Blood Loss (mL): Minimal Description of Procedure: DESCRIPTION OF PROCEDURE: History and physical of today was reviewed. Risks and benefits of the procedure were explained. The patient understood and agreed to proceed. Informed consent was obtained. IV inserted per routine protocol. The patient was taken to the operating room and placed in the prone position with a pillow positioned underneath the abdomen. The lower back and tailbone area was prepped and draped in a sterile fashion using iodine x3. Under fluoroscopy guidance on a lateral view, the caudal space was identified. The skin and subcutaneous tissue was anesthetized with approximately 3 mL of 1% lidocaine using a 25-gauge regular needle. Under direct visualization with fluoroscopy, using a 22-gauge 3-1/2-inch spinal needle, the needle was advanced via the skin through the sacral hiatus. The tip of the needle was passed through the sacrococcygeal ligament and advanced to approximately S4 area. After negative aspiration of blood or CSF, a total of 3 mL of contrast was injected to confirm correct placement of the needle as well as cephalad spread. The spread was followed to approximately L5 area. After confirmation on AP as well as lateral view and repeated negative aspiration, a total of 15 mL of preservative-free 0.125% Marcaine with 80 mg of Depo-Medrol was injected easily. The needle was then removed intact. The patient experienced no sign or symptoms of intrathecal or intravascular injection. The patient experienced no paresthesia. The procedure was completed without any apparent difficulty or any complications. The patient appeared to tolerate it well. ASSESSMENT AND PLAN: This is a 43-year-old female with lumbosacral radiculopathy, lumbosacral degenerative disc disease, lumbosacral spinal stenosis status post diagnostic/therapeutic caudal epidural steroid injection, patient will continue her current medications, patient will follow in approximately 2 weeks for reevaluation. Complications None
== END 2023-05-03 11:40 | disposition home or self-care (01) ==
LOC: SDC 09:03 → AC 09:11
PROVIDERS: PCP Internal Medicine; Referring Provider Anesthesiology Pain Medicine; Visit Provider Anesthesiology Pain Medicine
PROC: 3E0S3BZ Introduction of Anesthetic Agent into Epidural Space, Percutaneous Approach (ICD-10-PCS; CPT 62282; principal; 2023-05-03 10:45)
DX: M51.17 Intervertebral disc disorders with radiculopathy, lumbosacral region (principal); M46.96 Unspecified inflammatory spondylopathy, lumbar region; J44.9 Chronic obstructive pulmonary disease, unspecified; E11.9 Type 2 diabetes mellitus without complications; M48.07 Spinal stenosis, lumbosacral region; M51.37 Other intervertebral disc degeneration, lumbosacral region; F17.200 Nicotine dependence, unspecified, uncomplicated; G47.33 Obstructive sleep apnea (adult) (pediatric); M99.01 Segmental and somatic dysfunction of cervical region; M99.03 Segmental and somatic dysfunction of lumbar region; M99.02 Segmental and somatic dysfunction of thoracic region; F32.A Depression, unspecified; I10 Essential (primary) hypertension; E07.9 Disorder of thyroid, unspecified; Z79.899 Other long term (current) drug therapy
CPT/HCPCS: 62323; 01992; 72020; 76000; 82962; 94640; J7120; J3490

== ENCOUNTER → 2023-05-13 | Outpatient (CLI) | payer MEDICAID, SELFPAY ==
--- NOTE | 2023-05-13 15:16 | CT_ITS ---
EXAM: CT ANGIOGRAPHY CHEST WITHOUT AND WITH INTRAVENOUS CONTRAST CLINICAL INDICATION: Concern for PE with recent COVID TECHNIQUE: Helically acquired angiography images were obtained of the chest without and with intravenous contrast. This CT exam was performed using one or more of the following dose reduction techniques: automated exposure control, adjustment of the mA and/or kV according to patient size, and/or use of iterative reconstruction technique. MIP reconstructed images were created and reviewed. CONTRAST: IV 100mL [id number] COMPARISON: 05/24/2019. FINDINGS: PULMONARY ARTERIES: Unremarkable. Normal in caliber. No evidence of pulmonary embolism. AORTA: Unremarkable. Normal in caliber. No evidence of dissection. GREAT VESSELS OF AORTIC ARCH: Unremarkable. Normal in caliber. No evidence of dissection. LUNGS AND PLEURAL SPACES: Unremarkable. No mass. No consolidation or edema. No pleural effusion or thickening. No pneumothorax. HEART: Unremarkable. Heart size is normal. No pericardial effusion. No significant coronary artery calcifications. MEDIASTINUM: Unremarkable. No mediastinal or hilar adenopathy. Esophagus is unremarkable. No hiatal hernia. THYROID: Unremarkable. No thyroid lesions. BONES/JOINTS: Unremarkable. No suspicious lytic or blastic abnormality. CT/CTA Chest W/WO Contrast IMPRESSION: Negative CTA chest. Electronically Signed: Tarah Davis MD at 16:58 EST Reading Location ID and State: [id number] / Tel , Service support ,
[2023-05-13 15:42] LABS: CREATININE FINGERSTICK 1.1 mg/dL (0.55-1.02)
== END | disposition home or self-care (01) ==
LOC: CT 15:15
PROVIDERS: PCP Internal Medicine; Referring Provider Internal Medicine Critical Care Medicine; Visit Provider Internal Medicine Critical Care Medicine
DX: I26.99 Other pulmonary embolism without acute cor pulmonale (principal)
CPT/HCPCS: 71275; Q9967

== ENCOUNTER 2024-01-04 15:09 | Emergency (ER) | payer MEDICAID, SELFPAY ==
[2024-01-04 15:13] VITALS: BP 150/89; PULSE 86; RESP 18; TEMP 36.1; O2SAT 96; BMI 56.2
--- NOTE | 2024-01-04 15:22 | ED.RN ---
Pt states she doesn't want to wait to be seen and is going to try another ED
== END 2024-01-04 15:24 | disposition left against medical advice (07) ==
LOC: ED 15:27
PROVIDERS: PCP Internal Medicine
DX: Z53.21 Procedure and treatment not carried out due to patient leaving prior to being seen by health care provider (principal)

== ENCOUNTER → 2024-02-25 | Outpatient (CLI) | payer MEDICAID, SELFPAY ==
[2024-02-25 12:14] LABS: AST(SGOT) 26 U/L (15-37); Alanine Aminotransfer ALT/SGPT 26 U/L (13-56); Albumin, Serum 3.2 g/dL (3.2-5.0); Alkaline Phosphatase 101 U/L (45-117); Bilirubin, Direct < 0.05 mg/dL (0.00-0.30); Globulin 4.4 g/dL (2.2-4.2); Protein, Total 7.6 g/dL (6.4-8.2)
== END | disposition home or self-care (01) ==
LOC: LAB 11:23 → LABSPEC 11:31
PROVIDERS: PCP Internal Medicine; Referring Provider Nurse Practitioner Acute Care; Visit Provider Nurse Practitioner Acute Care
DX: J40 Bronchitis, not specified as acute or chronic (principal)
CPT/HCPCS: 36415; 80076; 87070; 87205; 87206

== ENCOUNTER 2024-12-24 22:14 | Emergency (ER) | payer MEDICAID, SELFPAY ==
[2024-12-24 22:17] VITALS: BP 168/94; PULSE 102; RESP 20; TEMP 37.1; O2SAT 98; BMI 56.3
[2024-12-24 22:21] VITALS: BP 168/94; PULSE 102; RESP 20; TEMP 37.1; O2SAT 98
--- OUTSIDE RECORDS SUMMARY | 2024-12-24 23:17 | XMS RPT_ITS | CCD ---
Author Organization [facility] Care Team Providers Care Tutor Name Role Phone Babar Phillip MD Primary Care Provider Yesenia LUTZ, Deanne Unavailable RAND LUTZ, DR SMITH Primary Care Physician Babar Phillip MD Primary Care Provider Yesenia LUTZ, Deanne Unavailable ARAVIND ROQUE Attending Unavailable Dr. Babar Phillip Primary Care Provider Dr. Babar Phillip Referring Provider Fabricio CONCRETE PIPE MAKING MACHINE OPERATOR, CONCRETE PIPE MAKING MACHINE OPERATOR-C Coco Attending Provider [phone] Babar Phillip MD Primary Care Provider Dr. Babar Phillip Primary Care Provider Kenji, Dr. Ellis Referring Provider Friend, Dr. Gerardo Attending Provider Dr. Kamron Cobb Attending Provider DR BABAR PHILLIP MD Primary Care Physician Dr. Babar Phillip Primary Care Provider Kenji, Dr. Ellis Referring Provider Dr. Babar Phillip Primary Care Provider Kenji, Dr. Ellis Referring Provider Dr. Kamron Cobb Attending Provider Babar Phillip MD Primary Care Provider CARMEN LUTZ, CHELSIE Al Attending Unavail able DR BABAR PHILLIP MD Primary Care Unavailwellington NATION DO, DR DANIEL Martin Attending Unavailable KENJI LUTZ, DR BABAR Marx Primary Care Unavailwellington GUEVARA MD, KANWAL Attending Unavailable KENJI LUTZ, DR BABAR Marx Primary Care UnavailKamron Nj Referring Unavailable Kamron Cobb Attending Unavailable Ganta, Babar Primary Care Unavailable Yoseph Peña Attending Unavailable Ganta, Babar Primary Care Unavailable Provider, Ed Physician Attending Unavailab le Ganta, Babar Primary Care Unavailable Ganta, Babar Primary Care Unavailable Ganta, Babar Referring Unavailable Regalado CONCRETE PIPE MAKING MACHINE OPERATOR, Coco Attending Unavailable Ganta, Babar Primary Care Unavailable Ganta, Babar Referring Unavailable Regalado CONCRETE PIPE MAKING MACHINE OPERATOR, Coco Attending Unavailable Kamron Cobb Attending Unavailable Ganta, Babar Referring Unavailable Ganta, Babar Primary Care Unavailable Ganta, Babar Primary Care Unavailable Steve Tirado Referring Unavailable Steve Tirado Attending Unavailable Regalado CONCRETE PIPE MAKING MACHINE OPERATOR, Coco Attending Unavailable Ganta, Babar Primary Care Unavailable Regalado CONCRETE PIPE MAKING MACHINE OPERATOR, Coco Referring Unavailable GANTA, BABAR Primary Care Unavailable Denbow PA-C, Lani L Unavailable Older 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, Caryn Unavailable Bogner PA-C, Zeinab Unavailable Denbow PA-C, Lani L Unavailable Bogner PA-C, Zeinab Unavailable KENJI LUTZ, DR BABAR Marx Primary Care Unavailwellington NGUYEN MD, DAVID Felix Attending Unavailable GANTA, BABAR Primary Care Unavailable GANTA, BABAR Primary Care Unavailable OLDER, CARYN Attending Unavailable GANTA, BABAR Primary Care Unavailable GANTA, BABAR Primary Care Unavailable OLDER, CARYN Referring Unavailable GANTA, BABAR Primary Care Unavailable GANTA, BABAR Primary Care Unavailable JANIE VINSON Referring Unavailable GANTA, BABAR Primary Care Unavailable OLDER, CARYN Referring Unavailable ELLE BOONE Attending Unavailable GANTA, BABAR Primary Care Unavailable OLDER, CARYN Attending Unavailable GANTA, BABAR Primary Care Unavailable OLDER, CARYN Attending Unavailable GANTA, BABAR Primary Care Unavailable OLDER, CARYN Attending Unavailable GANTA, BABAR Primary Care Unavailable OLDER, CARYN Attending Unavailable OLDER, CARYN Referring Unavailable GANTA, BABAR Primary Care Unavailable GANTA, BABAR Primary Care Unavailable CHARIS SWAN Attending Unavailable GANTA, BABAR Primary Care Unavailable OLDER, CARYN Referring Unavailable GANTA, BABAR Primary Care Unavailable GANTA, BABAR Referring Unavailable GANTA, BABAR Primary Care Unavailable OLDER, CARYN Referring Unavailable GANTA, BABAR Primary Care Unavailable OLDER, CARYN Referring Unavailable GANTA, BABAR Primary Care Unavailable ELLE BOONE Referring Unavailable GANTA, BABAR Primary Care Unavailable BLUNT, DURAN Referring Unavailable BLUNT, DURAN Attending Unavailable GANTA, BABAR Primary Care Unavailable GANTA, BABAR Primary Care Unavailable OLDER, CARYN Attending Unavailable GANTA, BABAR Primary Care Unavailable OLDER, CARYN Referring Unavailable GANTA, BABAR Primary Care Unavailable GANTA, BABAR Primary Care Unavailable OLDER, CARYN Attending Unavailable GANTA, BABAR Primary Care Unavailable OLDER, CARYN Referring Unavailable OLDER, CARYN Attending Unavailable GANTA, BABAR Primary Care Unavailable GANTA, BABAR Primary Care Unavailable OLDER, CARYN Attending Unavailable OLDER, CARYN Referring Unavailable GANTA, BABAR Primary Care Unavailable GANTA, BABAR Primary Care Unavailable GANTA, BABAR Primary Care Unavailable OLDER, CARYN Attending Unavailable GANTA, BABAR Primary Care Unavailable OLDER, CARYN Attending Unavailable GANTA, BABAR Referring Unavailable GANTA, BABAR Primary Care Unavailable OLDER, CARYN Attending Unavailable GANTA, BABAR Primary Care Unavailable GANTA, BABAR Primary Care Unavailable OLDER, CARYN Referring Unavailable OLDER, CARYN Attending Unavailable GANTA, BABAR Primary Care Unavailable GANTA, BABAR Primary Care Unavailable OLDER, CARYN Attending Unavailable OLDER, CAYRN Referring Unavailable GANTA, BABAR Primary Care Unavailable OLDER, CARYN Referring Unavailable GANTA, BABAR Primary Care Unavailable Allergies Allergy Classification Reported Allergen(s) Allergy Type Date of Onset Reaction(s) Facility Opioid Agonists (6 sources) Codeine Drug Allergy 5 Rash, Unknown [facility] Work Phone: Penicillins (antibiotic) (3 sources) Amoxicillin Drug Allergy 5 Other: See Comments [facility] Sulfonamides (antibiotic) (3 sources) Sulfonamides (Antibiotic) Drug Allergy 5 [facility] (20 sources) Amoxicillin; Translations: [amoxicillin] Drug Allergy 5 Other: See Comments [facility] (20 sources) Codeine; Translations: [codeine] Drug Allergy [address] [facility] Work Phone: (20 sources) Sulfonamides (Antibiotic); Translations: [sulfa drugs] Propensity to adverse reactions 5 [facility] Work Phone: (20 sources) Propoxyphene N-Acetaminophen; Translations: [PROPOXYPHENE N-ACETAMINOPHEN] Propensity to adverse reactions 7 [facility] Work Phone: (5 sources) Penicillin; Translations: [penicillins] Drug Allergy [facility] (20 sources) Propoxyphene; Translations: [PROPOXYPHENE] Drug Allergy 9 Rash, Unknown [facility] (6 sources) Propoxyphene; Translations: [propoxyphene napsylate] Drug Allergy 3 Rash [facility] (5 sources) Sulfonamides (Antibiotic) Allergy to substance 3 Anaphylaxis [facility] (1 source) Ritonavir Drug Allergy 3 Vomiting [facility] (2 sources) nirmatrelvir; Translations: [nirmatrelvir] Allergy to substance 3 Vomiting [facility] (4 sources) Sulfonamide; Translations: [sulfa drugs] Drug allergy [facility] (1 source) Amoxicillin Drug Allergy 4 [facility] (1 source) celecoxib Drug Allergy 4 [facility] (1 source) Codeine Drug Allergy 4 [facility] (1 source) Ritonavir Drug Allergy 4 [facility] (1 source) Sulfonamides (Antibiotic) Drug allergy (disorder) 4 [facility] (1 source) Penicillin; Translations: [penicillins] Drug Allergy [facility] Medications Current Medications Medication Drug Class(es) Dates Sig (Normalized) Sig (Original) [id number] 200 actuat albuterol 0.09 mg/actuat metered dose inhaler (20 sources) beta2-Adrenergic Agonist Start: 01-13-2024 take 2.5 mg by inhalation every four hours as needed albuterol (PROVENTIL) 2.5 mg /3 mL (0.083 %) nebulizer solution Use 3 mL via nebulizer every 4 hours as needed for wheezing/shortnes s of breath. Use over 5-15minutes. 90 mL 3 01/13/2024 Active Start: 11-04-2020 End: 10-17-2024 take 2 puff(s) by inhalation every four hours as needed for wheezing albuterol HFA (VENTOLIN HFA) 90 mcg/actuation inhaler Inhale 2 puffs as instructed every 4 hours as needed for wheezing/shortness of breath. 18 g 2 10/17/2024 Active Start: 05-01-2019 End: 04-15-2023 take 1 puff(s) by inhalation every four hours as needed Albuterol Sulfate Discontinued 2 PUFF INHALATION EVERY 4 HOURS NEEDED 8.5 March 12, 2021 10:27am October 27, 2021 1:56pm Start: 08-17-2017 End: 05-01-2019 take 1 puff(s) by inhalation every four hours as needed Albuterol Sulfate Discontinued 2 PUFF INHALATION EVERY 4 HOURS NEEDED August 16, 2017 11:00pm May 01, 2019 1:30pm Comment on above: Inhale 2 Puffs as in structed every 4 hours as needed for wheezing/shortness of breath. albuterol 0.833 mg/ml / ipratropium bromide 0.167 mg/ml inhalation solution (20 sources) Anticholinergic, beta2-Adrenergic Agonist Start: 020 take 3 mL by inhalation every four hours as needed ipratropium-albute rol (DUONEB) 0.5 mg-3 mg(2.5 mg base)/3 mL nebu Indications: Acute bronchitis with chronic obstructive pulmonary disease (COPD) (HCC) INHALE 3 ML INSTRUCTED EVERY 4 HOURS NEEDED 180 mL 2 12/29/2019 Active Start: 05-24-2019 take 1 mL by inhalat ion every six hours as needed Ipratropium-Albuterol Active 3 ML IH EVERY 6 HOURS NEEDED May 24, 2019 12:00am Comment on above: INHALE 3 ML INSTR UCTED EVERY 4 HOURS NEEDED amoxicillin 875 mg oral tablet (3 sources) Penicillin-class Antibacterial Start: 4 End: 4 take 1 tablet by mouth twice daily amoxicillin (AMOXIL) 875 mg tablet Take 1 tablet by mouth two times a day for 5 days. 10 tablet 0 12/06/2023 12/11/2023 Active amoxicillin 875 mg / clavulanate 125 mg oral tablet (20 sources) Penicillin-class Antibacterial Start: 5 End: 5 take 1 tablet by mouth every twelve hours amoxicillin-clavula jacki potassium (AUGMENTIN) 875-125 mg per tablet Take 1 tablet by mouth every 12 hours for 10 days. 20 tablet 10/13/2024 10/23/2024 Active Start: 01-21-2024 End: 01-31-2024 take 1 tablet by mouth twice daily amoxicillin-clavulanate potassium (AUGMENTIN) 875-125 mg per tablet Take 1 tablet by mouth two times a day for 10 days. 20 tablet 01/21/2024 01/31/2024 Active Start: 03-20-2020 End: 03-27-2020 take 1 tablet by mouth twice daily Amoxicillin-Pot Clavulanate (Augmentin) 875-125 mg tablet Discontinued 1 TABLET PO TWICE A DAY March 20, 2020 12:00am March 27, 2020 1:59pm Start: 09-13-2019 End: 09-25-2019 take 1 tablet by mouth twice daily Amoxicillin-Pot Clavulanate (Augmentin) 875-125 mg tablet Discontinued 1 TABLET PO TWICE A DAY September 12, 2019 11:00pm September 25, 2019 9:47am Start: 09-08-2018 End: 11-01-2018 take 1 tablet by mouth twice daily Amoxicillin-Pot Clavulanate (Augmentin) 875-125 mg tablet Discontinued 1 TABLET PO TWICE A DAY September 07, 2018 11:00pm November 01, 2018 12:13pm azithromycin 250 mg oral tablet (13 sources) Macrolide Antimicrobial Start: 10-13-2024 End: 10-18-2024 take 2 tablets by mouth once daily, then take 1 tablet by mouth once daily azithromycin (ZITHROMAX) 250 mg tablet Take 2 tablets by mouth once daily for 1 day, THEN 1 tablet once daily for 4 days. 6 tablet 10/13/2024 10/18/2024 Active Start: 01-13-2024 End: 01-18-2024 take 2 tablets by mouth once daily, then take 1 tablet by mouth once daily azithromycin (ZITHROMAX) 250 mg tablet Indications: Shortness of breath , Chest pain, unspecified type , Nodular radiologic density Take 2 tablets by mouth once daily for 1 day, THEN 1 tablet once daily for 4 days. 6 tablet 01/13/2024 01/18/2024 Active Start: 10-02-2020 End: 11-13-2020 Azithromycin Discontinued 0 PO .COMPLEX 6 October 01, 2020 11:00pm November 13, 2020 12:20pm take 500 mg today (day 1), then 250 mg for 4 days (days 2-5) PO Start: 07-03-2019 End: 09-13-2019 take 250 mg by mouth once daily Azithromycin Discontin ued 250 MG PO daily July 03, 2019 12:00am September 13, 2019 6:48am Blood Pressure Kit-Extra Large kit (20 sources) Start: 08-13-2023 Blood Pressure Kit-Extra Large kit Indications: Essential hypertension 1 Each once daily. 1 Each 1 08/13/2023 Active Comment on above: 1 Each once daily. Blood Pressure Monitor (20 sources) Start: 08-18-2023 Blood Pressure Monitor Indications: Essential hypertension 1 Each as directed. Dispense with Extra Large Cuff 1 Kit 08/18/2023 Active Start: 08-18-2023 Blood Pressure Monitor Indications: Essential hypertension 1 Each as directed. Dispense with Extra Large Cuff 1 Kit 0 08/18/2023 Active Comment on above: 1 Each as directed. Dispense with Extra Large Cuff Blood-Glucose Meter monitoring kit (1 source) Start: 3 End: 3 Blood-Glucose Meter monitoring kit Glucose Meter of Choice - Kit - Dx: Type 2 DM - Controlled E11.9 Insulin No 1 Each 0 05/22/2022 05/23/2022 Active Comment on above: Glucose Meter of Cho ice - Kit - Dx: Type 2 DM - Controlled E11.9 Insulin No cetirizine hydrochloride 10 mg oral tablet (20 sources) Histamine-1 Receptor Antagonist Start: 2 End: 4 take 1 tablet by mouth once daily cetirizine (ZYRTEC) 10 mg tablet Take 1 tablet by mouth once daily. 90 tablet 3 02/16/2024 Active Start: 01-05-2020 End: 02-12-2023 take 10 mg by mouth at bedtime Cetirizine Discontinued 10 MG PO BEDTIME August 04, 2022 8:05am February 12, 2023 11:45am Comment on above: Take 1 tablet by jose eduardo th once daily for 7 days. Take 1 tablet by jose eduardo th once daily. 12 hr dextromethorphan hydrobromide 30 mg / guaiFENesin 600 mg extended release oral tablet (1 source) Uncompetitive Z-spkysp-Q-aspartate Receptor Antagonist, Sigma-1 Agonist Start: 025 End: take 1 tablet by mouth twice daily as needed for cough dextromethorphan- guaiFENesin (MUCINEX DM) 30-600 mg per tablet Indications: URI, acute Take 1 tablet by mouth two times a day as needed for cough for up to 7 days. 14 tablet 07/13/2024 07/20/2024 Active diclofenac sodium 0.01 mg/mg topical gel (20 sources) Nonsteroidal Anti-inflammatory Drug Start: End: apply 2 g topically every twelve hours as needed diclofenac (VOLTAREN) 1 % topical gel Apply 2 g to affected area twice daily as needed. 50 g 5 09/25/2022 Active Comment on above: Apply 2 g to affecte d area twice daily as needed. dicyclomine hydrochloride 20 mg oral tablet (6 sources) Anticholinergic Start: 023 End: take 1 tablet by mouth every six hours as needed dicyclomine (BENTYL) 20 mg tablet Take 1 tablet by mouth four times daily as needed for up to 7 days. 28 tablet 0 08/26/2022 09/02/2022 Active Start: 07-17-2022 End: 08-24-2022 take 1 tablet by mouth every six hours as needed dicyclomine (BENTYL) 20 mg tablet Take 1 tablet by mouth four times daily as needed for up to 7 days. 28 tablet 0 07/17/2022 08/24/2022 Discontinued Comment on above: Take 1 tablet by jose eduardo th four times daily as needed for up to 7 days. doxycycline monohydrate 100 mg oral tablet (20 sources) Tetracycline-cla ss Drug Start: 12-22-2024 End: 12-29-2024 take 1 tablet by mouth twice daily doxycycline monohydrate 100 mg tablet Indications: Abscess Take 1 tablet by mouth two times a day for 7 days. 14 tablet 12/22/2024 12/29/2024 Active Start: 11-20-2024 End: 11-27-2024 take 1 capsule by mouth twice daily doxycycline hyclate (VIBRAMYCIN) 100 mg capsule Take 1 capsule by mouth two times a day for 7 days. 14 capsule 11/20/2024 11/27/2024 Active Start: 03-31-2024 End: 04-07-2024 take 1 tablet by mouth twice daily doxycycline (VIBRA-TABS) 100 mg tablet Indications: Skin infection Take 1 tablet by mouth two times a day for 7 days. 14 tablet 03/31/2024 04/07/2024 Active Start: 06-30-2023 End: 07-07-2023 take 1 tablet by mouth twice daily doxycycline (VIBRA-TABS) 100 mg tablet Take 1 tablet by mouth two times a day for 7 days. 14 tablet 0 06/30/2023 07/07/2023 Active Start: 05-07-2023 End: 05-07-2023 take 100 mg by mouth twice daily Doxycycline Hyclate Active 100 MG PO TWICE A DAY May 07, 2023 3:04pm Start: 04-21-2023 End: 04-26-2023 take 1 tablet by mouth twice daily doxycycline monohydrate 100 mg tablet Take 1 tablet by mouth two times a day for 5 days. 10 tablet 04/21/2023 04/26/2023 Start: 08-22-2021 End: 05-01-2022 take 100 mg by mouth twice daily Doxycycline Hyclate Discontinued 100 MG PO TWICE A DAY August 21, 2021 11:00pm May 01, 2022 12:47pm Start: 12-11-2019 End: 03-20-2020 take 100 mg by mouth twice daily Doxycycline Hyclate Discontinued 100 MG PO TWICE A DAY March 20, 2020 12:00am March 20, 2020 10:44am Start: 09-25-2019 End: 11-13-2019 take 100 mg by mouth twice daily Doxycycline Hyclate Discontinued 100 MG PO TWICE A DAY September 24, 2019 11:00pm November 13, 2019 11:52am Start: 03-16-2019 End: 05-01-2019 take 100 mg by mouth twice daily Doxycycline Hyclate Discontinued 100 MG PO TWICE A DAY March 15, 2019 11:00pm May 01, 2019 1:03pm Comment on above: Take 1 tablet by jose eduardo th twice daily for 10 days. Take 1 tablet by jose eduardo th two times a day for 7 days. 0.5 ml dulaglutide 3 mg/ml auto-injector (20 sources) GLP-1 Receptor Agonist Start: 06-30-19 End: 01-25-20 inject 1 dose by subcutaneous injection every week dulaglutide (TRULICITY) 1.5 mg/0.5 mL pen injector Indications: Controlled type 2 diabetes mellitus without complication, without long-term current use of insulin (HCC) , Morbid obesity with BMI of 50.0-59.9, adult (HCC) Inject 1.5 mg subcutaneously one time a week. Inject dose once per week. Discard Pen After 2 mL 2 10/26/2024 01/24/2025 Active Start: 06-10-2023 End: 07-27-2024 inject 0.75 mg by subcutaneous injection every week dulaglutide (TRULICITY) 0.75 mg/0.5 mL pen injector Indications: Controlled type 2 diabetes mellitus without complication, without long-term current use of insulin (HCC) , Morbid obesity with BMI of 50.0-59.9, adult (HCC) , Essential hypertension , Other hyperlipidemia Inject 0.75 mg subcutaneously one time a week. Inject dose once per week. Discard Pen After 2 mL 2 04/28/2024 06/30/2024 Discontinued Start: 03-25-2022 End: 03-25-2022 inject 0.75 mg by subcutaneous injection every week dulaglutide (TRULICITY) 0.75 mg/0.5 mL pen injector Indications: Controlled type 2 diabetes mellitus without complication, without long-term current use of insulin (HCC) Inject 0.75 mg subcutaneously one time a week. Inject dose once per week. Discard Pen After 4 Each 1 03/25/2022 03/25/2022 Discontinued (Clinical Decision) Start: 02-20-2022 End: 03-25-2022 dulaglutide (TRULICITY) 1.5 mg/0.5 mL pen injector Inject 1.5 mg subcutaneously one time a week. Inject once per week. Discard Pen After 4 Each 5 02/20/2022 03/25/2022 Discontinued Start: 02-04-2022 End: 02-20-2022 inject 0.75 mg by subcutaneous injection every week dulaglutide (TRULICITY) 0.75 mg/0.5 mL pen injector Indications: Controlled type 2 diabetes mellitus without complication, without long-term current use of insulin (HCC) Inject 0.75 mg subcutaneously one time a week. Inject dose once per week. Discard Pen After 4 Each 1 02/04/2022 02/20/2022 Discontinued Comment on above: Inject 0.75 mg subcu taneously one time a week. Inject dose once per week. Discard Pen After Inject 1.5 mg subcut aneously one time a week. Inject once per week. Discard Pen After enteric contrast (will be provided with radiology test) (1 source) Start: 2 End: 2 enteric contrast (will be provided with radiology test) For CT ABD/PEL W IVCON Routine order Administer, As Directed One Time Only, via Oral, Rectal, both Oral and Rectal, Enteric Tube, Stoma or Indwelling Catheter, Enteric Contrast as designated per enteric contrast guidelines 1 Each 0 04/08/2022 04/09/2022 Active Comment on above: For CT ABD/PEL W IVC ON Routine order Administer, As Directed One Time Only, via Oral, Rectal, both Oral and Rectal, Enteric Tube, Stoma or Indwelling Catheter, Enteric Contrast as designated per enteric contrast guidelines famotidine 20 mg oral tablet (20 sources) Histamine-2 Receptor Antagonist Start: 3 End: 4 take 1 tablet by mouth once daily at bedtime famotidine (PEPCID) 20 mg tablet Take 1 tablet by mouth daily at bedtime. 90 tablet 3 03/17/2024 Active Start: 06-11-2020 End: 05-25-2022 take 1 tablet by mouth twice daily famotidine (PEPCID) 20 mg tablet Indications: Gastroesophageal reflux disease without esophagitis Take 1 tablet by mouth twice daily. 60 tablet 11 06/11/2020 06/06/2021 Discontinued Start: 11-13-2019 take 2 tablets by mo [facility] once daily Famotidine (Pepcid) 20 mg tablet Active 40 MG PO DAILY November 12, 2019 11:00pm Comment on above: Take 1 tablet by [facility] twice daily. Take 1 tablet by [facility] daily at bedtime. flash glucose scanning reader (FREESTYLE ANA PAULA 2 READER) (20 sources) Start: 03-25-2022 flash glucose scanning reader (FREESTYLE ANA PAULA 2 READER) 1 Each once daily. 1 Each 03/25/2022 Active Start: 03-25-2022 flash glucose scanning reader (FREESTYLE ANA PAULA 2 READER) 1 Each once daily. 1 Each 0 03/25/2022 Active Comment on above: 1 Each once daily. flash glucose sensor (FREESTYLE ANA PAULA 2 SENSOR) kit (20 sources) Start: 04-12-2024 flash glucose sensor (FREESTYLE ANA PAULA 2 SENSOR) kit USE TO CHECK BLOOD SUGAR DAILY 2 Each 3 04/12/2024 Active Start: 01-06-2024 End: 04-12-2024 flash glucose sensor (FREEST YLE ANA PAULA 2 SENSOR) kit USE TO CHECK BLOOD SUGAR DAILY 2 Each 3 01/06/2024 04/12/2024 Discontinued Start: 01-06-2024 flash glucose sensor (FREESTYLE ANA PAULA 2 SENSOR) kit USE TO CHECK BLOOD SUGAR DAILY 2 Each 3 01/06/2024 Active Start: 09-03-2023 End: 01-06-2024 flash glucose sensor (FREEST YLE ANA PAULA 2 SENSOR) kit USE TO CHECK BLOOD SUGAR DAILY 2 Each 3 09/03/2023 01/06/2024 Discontinued Start: 09-03-2023 flash glucose sensor (FREESTYLE ANA PAULA 2 SENSOR) kit USE TO CHECK BLOOD SUGAR DAILY 2 Each 3 09/03/2023 Active Start: 05-19-2023 End: 09-03-2023 flash glucose sensor (FREEST YLE ANA PAULA 2 SENSOR) kit USE TO CHECK BLOOD SUGAR DAILY 2 Each 3 05/19/2023 09/03/2023 Discontinued Start: 05-19-2023 flash glucose sensor (FREESTYLE ANA PAULA 2 SENSOR) kit USE TO CHECK BLOOD SUGAR DAILY 2 Each 3 05/19/2023 Active Start: 12-21-2022 End: 04-20-2023 flash glucose sensor (FREEST YLE ANA PAULA 2 SENSOR) kit 1 Each once daily. 2 Kit 3 12/21/2022 04/20/2023 Discontinued Start: 12-21-2022 flash glucose sensor (FREESTYLE ANA PAULA 2 SENSOR) kit 1 Each once daily. 2 Kit 3 12/21/2022 Active Start: 08-28-2022 End: 12-21-2022 flash glucose sensor (FREEST YLE ANA PAULA 2 SENSOR) kit 1 Each once daily. 2 Kit 3 08/28/2022 12/21/2022 Discontinued Start: 08-28-2022 flash glucose sensor (FREESTYLE ANA PAULA 2 SENSOR) kit 1 Each once daily. 2 Kit 3 08/28/2022 Active Start: 05-15-2022 End: 08-28-2022 flash glucose sensor (FREEST YLE ANA PAULA 2 SENSOR) kit 1 Each once daily. 2 Kit 3 05/15/2022 08/28/2022 Discontinued Start: 05-15-2022 flash glucose sensor (FREESTYLE ANA PAULA 2 SENSOR) kit 1 Each once daily. 2 Kit 3 05/15/2022 Active Start: 03-25-2022 End: 05-14-2022 flash glucose sensor (FREEST YLE ANA PAUAL 2 SENSOR) kit 1 Each once daily. 1 Kit 3 03/25/2022 05/14/2022 Discontinued Start: 03-25-2022 flash glucose sensor (FREESTYLE ANA PAULA 2 SENSOR) kit 1 Each once daily. 1 Kit 3 03/25/2022 Active Comment on above: 1 Each once daily. USE TO CHECK BLOOD S UGAR DAILY fluconazole 150 mg oral tablet (10 sources) Azole Antifungal Start: 11-20-2024 End: 11-20-2024 fluconazole (DIFLUCAN) 150 mg tablet Take 1 tablet by mouth one time only for 1 dose. Repeat in 3 days as needed. 2 tablet 11/20/2024 11/20/2024 Active Start: 10-13-2024 End: 10-13-2024 fluconazole (DIFLUCAN) 150 m g tablet Take 1 tablet by mouth one time only for 1 dose. Repeat in 3 days as needed. 2 tablet 10/13/2024 10/13/2024 Active Start: 01-21-2024 End: 01-21-2024 fluconazole (DIFLUCAN) 150 m g tablet Take 1 tablet by mouth one time only for 1 dose. Repeat in 3 days as needed. 2 tablet 01/21/2024 01/21/2024 Start: 12-10-2023 End: 12-11-2023 take 1 tablet by mouth once daily fluconazole (DIFLUCAN) 150 mg tablet Take 1 tablet by mouth once daily for 1 day. 1 tablet 0 12/10/2023 12/11/2023 Active Start: 09-13-2019 End: 11-13-2019 take 1 tablet by mouth once daily Fluconazole (Diflucan) 200 mg tablet Discontinued 200 MG PO DAILY September 12, 2019 11:00pm November 13, 2019 11:52am 120 actuat fluticasone propionate 0.115 mg/actuat / salmeterol 0.021 mg/actuat metered dose inhaler (19 sources) Corticosteroid, beta2-Adrenergic Agonist Start: 06-16-2024 take 2 puff(s) by inhalation twice daily fluticasone-salmeterol HFA (ADVAIR HFA) 115-21 mcg/actuation inhaler Indications: Mild persistent asthma without complication (HCC) Inhale 2 Puffs as instructed two times a day. 1 Each 5 06/16/2024 Active 60 actuat formoterol fumarate 0.005 mg/actuat / mometasone furoate 0.2 mg/actuat metered dose inhaler (19 sources) Corticosteroid, beta2-Adrenergic Agonist Start: 10-17-2024 take 2 puff(s) by inhalation twice daily mometasone-formoterol (DULERA) 200-5 mcg/actuation inhaler Inhale 2 puffs as instructed two times a day. 13 g 5 10/17/2024 Active Start: 06-19-2024 End: 10-17-2024 take 2 puff(s) by inhalation twice daily mometasone-formoterol (DULERA) 200-5 mcg/actuation inhaler Inhale 2 Puffs as instructed two times a day. 1 Each 5 06/19/2024 10/17/2024 Discontinued furosemide 40 mg oral tablet (20 sources) Loop Diuretic Start: 11-22-2024 take 1 tablet by mouth once daily furosemide (LASIX) 40 mg tablet Take 1 tablet by mouth once daily. 30 tablet 5 11/22/2024 Active Start: 05-19-2024 End: 11-21-2024 take 1 tablet by mouth once daily furosemide (LASIX) 40 mg tablet Take 1 tablet by mouth once daily. 30 tablet 5 05/19/2024 11/21/2024 Discontinued Start: 10-17-2020 End: 05-06-2021 Lasix 20 mg oral tablet Dose : 40 mg = 2 tab(s), Oral, qDay, # 60 tab(s), 0 Refill(s), Acute exacerbation of COPD Edema of both lower legs Start Date: 02/20/21 Status: Ordered Medication Dispense Status: Completed Quantity: 60.0 Unit: tab(s) Total Allowed Fills: 1 Fills Dispensed: 0 Indications: Localized edema; Chronic obstructive pulmonary disease with (acute) exacerbation; Start: 10-03-2019 End: 05-16-2024 take 1 tablet by mouth once daily furosemide (LASIX) 40 mg tablet Take 1 tablet by mouth once daily. 30 tablet 5 11/01/2023 05/16/2024 Discontinued Comment on above: Take 1 tablet by jose eduardo th once daily. TAKE 1 TABLET BY JOSE EDUARDO TH DAILY glucose 4000 mg chewable tablet (20 sources) Start: 05-22-2022 glucose 4 gram chewable tablet Take 3-4 tablets for hypoglycemia. Recheck blood sugar in 15 min after dose 30 tablet 05/22/2022 Active Comment on above: Take 3-4 tablets for hypoglycemia. Recheck blood sugar in 15 min after dose guaiFENesin 1200 mg oral tablet (20 sources) Start: 04-07-2023 take 1200 mg by mouth every twelve hours Guaifenesin Active 1200 MG PO Q12H 60 April 07, 2023 10:57am Start: 03-26-2021 End: 04-07-2023 take 1200 mg by mouth every twelve hours Guaifenesin Discontinued 1200 MG PO Q12H 60 June 23, 2022 9:18am April 07, 2023 10:57am Start: 12-07-2019 End: 02-26-2021 take 1200 mg by mouth every twelve hours Guaifenesin Discontinued 1200 MG PO Q12H 60 December 06, 2019 11:00pm February 26, 2021 11:55am Start: 08-23-2017 End: 02-04-2018 take 1200 mg by mouth twice daily Guaifenesin Discontinued 1200 MG PO TWICE A DAY August 22, 2017 11:00pm February 04, 2018 7:55am homatropine methylbromide 0.3 mg/ml / HYDROcodone bitartrate 1 mg/ml oral solution (2 sources) Opioid Agonist, Cholinergic Muscarinic Agonist Start: 05-13-2023 Hydrocodone-Homatropine (Hydromet) 5-1.5 mg/5 mL syrup Active ML PO ONCE May 13, 2023 12:00am Start: 04-21-2023 End: 04-28-2023 take 5 mL by mouth every six hours as needed for cough and cough HYDROcodone-homatropine (HYCODAN) 5-1.5 mg/5 mL (5 mL) syrup Indications: Acute cough Take 5 mL by mouth every 6 hours as needed for up to 7 days. 140 mL 04/21/2023 04/28/2023 hydrocortisone 10 mg/ml / neomycin 3.5 mg/ml / polymyxin b 11200 unt/ml otic suspension (1 source) Aminoglycoside Antibacterial, Polymyxin-class Antibacterial, Corticosteroid Start: 12-22-2024 End: 12-29-2024 iakhmbbk-zsxrnhteb-jzowlbhba isone (CORTISPORIN) 3.5-10,000-1 mg/mL-unit/mL-% otic suspension Use 4 drops in both ears three times a day for 7 days. 10 mL 12/22/2024 12/29/2024 Active ibuprofen 600 mg oral tablet (20 sources) Nonsteroidal Anti-inflammatory Drug Start: 01-21-2024 take 1 tablet by mouth every eight hours as needed ibuprofen (MOTRIN) 600 mg tablet Take 1 tablet by mouth every 8 hours as needed for pain. 20 tablet 01/21/2024 Active Start: 12-06-2023 End: 12-08-2023 take 1 tablet by mouth every eight hours as needed ibuprofen (MOTRIN) 600 mg tablet Take 1 tablet by mouth every 8 hours as needed for pain. 20 tablet 0 12/06/2023 12/08/2023 Discontinued Start: 01-10-2021 End: 07-16-2021 take 1 tablet by mouth every six hours as needed ibuprofen (MOTRIN) 600 mg tablet Take 1 tablet by mouth every 6 hours as needed for pain. 30 tablet 01/10/2021 07/16/2021 Discontinued lamoTRIgine 100 mg oral tablet (20 sources) Mood Stabilizer, Anti-epileptic Agent Start: 07-31-2022 take 200 mg by mouth at bedtime Lamotrigine Active 200 MG PO AT BEDTIME July 31, 2022 12:36pm Start: 05-13-2022 take 1 tablet by jose eduardo th once daily at bedtime lamoTRIgine (LAMICTAL) 200 mg tablet Take 200 mg by mouth daily at bedtime. 05/13/2022 Active Start: 03-19-2019 End: 05-01-2019 take 1 tablet by mouth once daily Lamotrigine Discontinued 1 TABLET PO DAILY March 18, 2019 11:00pm May 01, 2019 1:06pm Start: 07-27-2018 End: 07-31-2022 lamoTRIgine (LAMICTAL) 100 m g tablet 100 mg. 07/27/2018 06/03/2022 Discontinued Comment on above: 100 mg. levothyroxine sodium 0.05 mg oral tablet (20 sources) l-Thyroxine Start: take 1 tablet by mouth once daily for thyroid dysfunction levothyroxine (SYNTHROID) 50 mcg tablet TAKE 1 TABLET BY MOUTH DAILY TAKE ON EMPTY STOMACH. FOR THYROID 30 tablet 5 10/05/2024 Active Start: 07-03-2021 End: 04-12-2024 take 1 tablet by mouth once daily for thyroid dysfunction levothyroxine (SYNTHROID) 50 mcg tablet TAKE 1 TABLET BY MOUTH DAILY TAKE ON EMPTY STOMACH. FOR THYROID 30 tablet 5 04/12/2024 Active Start: 05-15-2021 take 50 ug by mouth once daily Levothyroxine Active 50 MCG PO DAILY May 15, 2021 12:00am Comment on above: Take 1 tablet by jose eduardo th once daily. Take on empty stomach. For Thyroid TAKE 1 TABLET BY JOSE EDUARDO TH DAILY TAKE ON EMPTY STOMACH. FOR THYROID lidocaine 50 mg/ml topical cream (20 sources) Antiarrhythmic, Amide Local Anesthetic Start: 2 lidocaine (ANECREAM5) crea Apply to affected area as needed. 28 g 1 02/20/2022 Active Comment on above: Apply to affected ar ea as needed. Magnesium Sulfate / potassium sulfate / sodium sulfate (1 source) Start: 3 End: 3 sodium sulfate-potassium sulfate-magnesium sulfate (SUPREP BOWEL PREP KIT) 17.5-3.13-1.6 gram oral liquid Indications: Rectal bleeding , Diarrhea, unspecified type Take 1 Bottle by mouth as directed for 2 days. Refer to instructions given by your provider. 1 Kit 0 06/17/2022 06/19/2022 Active Comment on above: Take 1 Bottle by jose eduardo th as directed for 2 days. Refer to instructions given by your provider. metoprolol tartrate 25 mg oral tablet (20 sources) beta-Adrenergic Alesha Start: 3 End: 4 take 1 tablet by mouth twice daily metoprolol tartrate, short acting, (LOPRESSOR) 25 mg tablet Take 1 tablet by mouth two times a day. 180 tablet 3 02/16/2024 Active Start: 10-15-2020 End: 03-19-2023 take 1 tablet by mouth twice daily metoprolol tartrate, short acting, (LOPRESSOR) 25 mg tablet Take 1 tablet by mouth twice daily. 62 tablet 5 10/15/2020 04/08/2021 Discontinued Start: 11-02-2019 take 25 mg by mouth twice alicia y Metoprolol Succinate Active 25 MG PO TWICE A DAY November 01, 2019 11:00pm Comment on above: Take 1 tablet by jose eduardo th twice daily. Take 1 tablet by jose eduardo th two times a day. montelukast 10 mg oral tablet (20 sources) Leukotriene Receptor Antagonist Start: 0 End: 5 take 1 tablet by mouth once daily at bedtime montelukast (SINGULAIR) 10 mg tablet Take 1 tablet by mouth daily at bedtime. 30 tablet 5 10/11/2024 Active mupirocin 0.02 mg/mg topical ointment (20 sources) RNA Synthetase Inhibitor Antibacterial Start: 5 mupirocin (BACTROBAN) 2 % ointment Apply 1 application to affected area three times a day. 15 g 06/30/2024 Active Start: 12-19-2021 End: 12-29-2021 mupirocin (BACTROBAN) 2 % oi ntment Apply 1 application to affected area three times daily for 10 days. 30 g 0 12/19/2021 12/29/2021 Active Comment on above: Apply 1 application to affected area three times daily for 10 days. naproxen 500 mg oral tablet (20 sources) Nonsteroidal Anti-inflammatory Drug Start: 10-15-2024 End: 10-23-2024 naproxen 500 mg oral tablet Dose : 500 mg = 1 tab(s), Oral, BID, PRN as needed for pain, # 20 tab(s), 0 Refill(s), 10/23/24 1:35:00 AM EDT Start Date: 10/15/24 Stop Date: 10/23/24 Status: Ordered Quantity: 20.0 Unit: tab(s) Repeat number: 1 Start: 11-23-2022 End: 12-06-2023 take 1 tablet by mouth every twelve hours as needed naproxen (NAPROSYN) 500 mg tablet Take 1 tablet by mouth twice daily as needed (for pain/inflammation). Take with food. 30 tablet 1 12/31/2022 12/06/2023 Discontinued (Course of therapy completed) Start: 01-23-2022 End: 05-25-2022 take 1 tablet by mouth every twelve hours as needed naproxen (NAPROSYN) 500 mg tablet Take 1 tablet by mouth twice daily as needed (for pain/inflammation). Take with food. 30 tablet 1 01/23/2022 05/25/2022 Discontinued (Discontinued by Patient) Comment on above: Take 1 tablet by jose eduardo th twice daily as needed (for pain/inflammation). Take with food. Nebulizer Accessories kit (20 sources) Start: 2023 Nebulizer Accessories kit 1 Each every 4 hours as needed (wheezing or shortness of breath). 1 Kit 11 01/13/2024 Active nirmatrelvir tablet 300 mg (150 mg x 2) and ritonavir tablet 100 mg in a dose pack (PAXLOVID) (2 sources) Start: 2022 End: 2022 nirmatrelvir tablet 300 mg (150 mg x 2) and ritonavir tablet 100 mg in a dose pack (PAXLOVID) Indications: COVID Administer TWO pink nirmatrelvir 150 mg tablets and ONE white ritonavir 100 mg tablet for a total of three tablets twice daily. 30 tablet 0 04/12/2023 04/17/2023 Active Comment on above: Administer TWO pink nirmatrelvir 150 mg tablets and ONE white ritonavir 100 mg tablet for a total of three tablets twice daily. omeprazole 40 mg delayed release oral capsule (20 sources) Proton Pump Inhibitor Start: 2022 End: 2024 take 1 capsule by mouth once daily before breakfast omeprazole (PRILOSEC) 40 mg capsule Indications: Gastroesophageal reflux disease without esophagitis TAKE 1 CAPSULE BY MOUTH DAILY 1/2 HOUR BEFORE BREAKFAST 30 capsule 5 10/11/2024 Active Start: 03-25-2022 End: 05-25-2022 take 20 mg by mouth at bedtime Omeprazole Active 20 MG PO AT BEDTIME May 01, 2022 12:00am Comment on above: Take 1 capsule by mo ut daily before breakfast. 1/2 hr before meal. TAKE 1 CAPSULE BY MO UT DAILY 1/2 HOUR BEFORE BREAKFAST ondansetron 4 mg disintegrating oral tablet (20 sources) Serotonin-3 Receptor Antagonist Start: 12-23-19 take 1 tablet by mouth every six hours as needed ondansetron orally disintegrating (ZOFRAN ODT) 4 mg disintegrating tablet Take 1 tablet by mouth every 6 hours as needed for nausea/vomiting. 15 tablet 1 12/22/2024 Active Start: 11-15-2023 End: 04-01-2024 take 1 tablet by mouth every six hours as needed ondansetron orally disintegrating (ZOFRAN ODT) 4 mg disintegrating tablet Take 1 tablet by mouth every 6 hours as needed for nausea/vomiting. 15 tablet 1 01/13/2024 04/01/2024 Discontinued (Course of therapy completed) Start: 07-31-2022 take 4 mg by mouth e very eight hours Ondansetron Active 4 MG PO Q8H July 30, 2022 11:00pm Start: 06-10-2022 End: 04-12-2023 take 1 tablet by mouth every eight hours as needed ondansetron (ZOFRAN) 4 mg tablet Take 1 tablet by mouth every 8 hours as needed for nausea/vomiting (for nausea.). 60 tablet 1 06/10/2022 04/12/2023 Discontinued Comment on above: Take 1 tablet by [facility] every 8 hours as needed for nausea/vomiting (for nausea.). orphenadrine citrate 100 mg oral tablet (1 source) Muscle Relaxant Start: 10-16-19 End: 10-23-19 take 1 capsule by mouth twice daily Norflex use orphenadrine Dose : 100 mg =, Oral, BID, X 7 day(s), # 14 cap(s), 0 Refill(s), 10/22/24 1:35:00 AM EDT Start Date: 10/15/24 Stop Date: 10/22/24 Status: Ordered Quantity: 14.0 Unit: cap(s) Repeat number: 1 phentermine hydrochloride 37.5 mg oral tablet (6 sources) Sympathomimetic Amine Anorectic Start: 11-24-19 End: 12-24-19 take 50-59.9 tablets by mouth once daily Phentermine HCl (ADIPEX-P) 37.5 mg tablet Indications: Class 3 drug-induced obesity with serious comorbidity and body mass index (BMI) of 50.0 to 59.9 in adult (HCC) Take 1 tablet by mouth once daily for 30 days. 30 tablet 0 11/23/2022 12/23/2022 Active Comment on above: Take 1 tablet by jose eduardo th once daily for 30 days. potassium chloride 10 meq extended release oral tablet (20 sources) Start: 08-01-19 take 10 mEq by mouth once daily Potassium Chloride Active 10 MEQ PO DAILY July 30, 2022 11:00pm Start: 06-11-2020 End: 03-17-2024 take 1 tablet by mouth once daily at breakfast potassium chloride (K-TAB) 10 mEq tablet Indications: Bilateral lower extremity edema Take 1 tablet by mouth daily with breakfast. Take with lasix 90 tablet 3 03/17/2024 Active Comment on above: Take 1 tablet by jose eduardo th daily with breakfast. Take with lasix predniSONE 10 mg oral tablet (20 sources) Start: 10-20-2024 End: 10-29-2024 predniSONE (DELTASONE) 10 mg tablet Take 4 tabs daily for 3 days, then 2 tabs daily for 3 days, then 1 tab daily for 3 days with food. 21 tablet 10/20/2024 10/29/2024 Active Start: 10-11-2024 End: 10-20-2024 take 1 tablet by mouth once daily predniSONE (DELTASONE) 20 mg tablet Take 1 tablet by mouth once daily. 4 tablet 10/11/2024 10/20/2024 Discontinued Start: 07-13-2024 End: 07-22-2024 predniSONE (DELTASONE) 10 mg tablet Indications: Acute cough Take 4 tabs daily for 3 days, then 2 tabs daily for 3 days, then 1 tab daily for 3 days with food. 21 tablet 07/13/2024 07/22/2024 Active Start: 02-17-2024 End: 02-26-2024 predniSONE (DELTASONE) 10 mg tablet Indications: Shortness of breath , Cough, unspecified type , Wheezing , Low O2 saturation Take 4 tabs daily for 3 days, then 2 tabs daily for 3 days, then 1 tab daily for 3 days with food. 21 tablet 02/17/2024 02/26/2024 Start: 02-02-2024 End: 02-17-2024 take 2 tablets by mouth once daily predniSONE (DELTASONE) 20 mg tablet Take 2 tablets by mouth once daily. 10 tablet 02/02/2024 02/17/2024 Discontinued Start: 01-21-2024 End: 01-30-2024 predniSONE (DELTASONE) 10 mg tablet Take 4 tabs daily for 3 days, then 2 tabs daily for 3 days, then 1 tab daily for 3 days with food. 21 tablet 01/21/2024 01/30/2024 Active Start: 07-14-2023 End: 07-19-2023 predniSONE 20 mg oral tablet Dose : 40 mg = 2 tab(s), Oral, qDay, X 5 day(s), # 10 tab(s), 0 Refill(s), 07/19/23 6:41:00 PM EST Start Date: 07/14/23 Stop Date: 07/19/23 Status: Ordered Start: 07-09-2023 End: 07-13-2023 take 2 tablets by mouth once daily at mealtime predniSONE (DELTASONE) 20 mg tablet Take 2 tablets by mouth once daily for 4 days. Take daily with food. 8 tablet 0 07/09/2023 07/13/2023 Active Start: 06-30-2023 End: 07-09-2023 predniSONE (DELTASONE) 10 mg tablet Take 4 tabs daily for 3 days, then 2 tabs daily for 3 days, then 1 tab daily for 3 days with food. 21 tablet 06/30/2023 07/09/2023 Discontinued (Course of therapy completed) Start: 04-21-2023 End: 04-26-2023 take 2 tablets by mouth once daily predniSONE (DELTASONE) 20 mg tablet Take 2 tablets by mouth once daily for 5 days. 10 tablet 04/21/2023 04/26/2023 Start: 04-07-2023 End: 05-07-2023 Prednisone Discontinued 10 M G PO daily May 07, 2023 1:11pm May 07, 2023 3:05pm take 4 tabs for three days, then 3 tabs for three days, then 2 tabs for three days, then 1 tab for 3 days Start: 04-05-2023 End: 04-09-2023 take 2 tablets by mouth once daily at mealtime predniSONE (DELTASONE) 20 mg tablet Indications: Exacerbation of asthma, unspecified asthma severity, unspecified whether persistent Take 2 tablets by mouth once daily for 4 days. Take daily with food. 8 tablet 0 04/05/2023 04/09/2023 Active Start: 01-12-2023 End: 01-15-2023 predniSONE 10 mg oral tablet Dose : 10 mg = 1 tab(s), Oral, BID, with food, # 6 tab(s), 0 Refill(s) Start Date: 01/12/23 Stop Date: 01/15/23 Status: Ordered Medication Dispense Status: Completed Quantity: 6.0 Unit: tab(s) Total Allowed Fills: 1 Fills Dispensed: 0 Start: 01-24-2021 End: 04-24-2021 predniSONE (DELTASONE) 10 mg tablet Take 6 tabs by mouth for 3 days then 4 tabs a day for 3 days then 2 tabs a day for 3 days and then 1 tab a day for 3 days. 39 tablet 01/24/2021 04/24/2021 Discontinued Start: 01-06-2021 End: 10-27-2021 Prednisone Discontinued 10 M G PO daily January 16, 2021 11:46am August 22, 2021 2:04pm take 4 tabs for three days, then 3 tabs for three days, then 2 tabs for three days, then 1 tab for 3 days Start: 10-02-2020 End: 11-13-2020 take 4 tablets by mouth once daily, then take 3 tablets by mouth once daily, then take 2 tablets by mouth once daily, then take 1 tablet by mouth once daily Prednisone Discontinued 10 MG PO daily October 01, 2020 11:00pm November 13, 2020 12:21pm Take 4 tabs PO daily for 3 days, then 3 tabs PO daily for 3 days, 2 tabs PO daily for 3 days then 1 tab PO daily for 3 days Start: 12-22-2019 End: 12-26-2019 take 40 mg by mouth once daily at mealtime Prednisone Discontinued 40 MG PO DAILY 8 December 21, 2019 11:00pm December 25, 2019 11:02pm With food Start: 12-07-2019 End: 05-14-2020 Prednisone Discontinued 10 M G PO daily April 08, 2020 9:44am May 14, 2020 12:33pm 4 tablet daily for 3 days, then 3 tablet for 3 days then 2 tablet daily for 3 days then 1 tablet daily for 3 days Start: 09-13-2019 End: 11-13-2019 take 60 mg by mouth once daily at mealtime Prednisone Discontinued 60 MG PO daily September 25, 2019 9:47am November 13, 2019 11:53am administer with food or milk Start: 03-10-2019 End: 05-01-2019 take 60 mg by mouth once daily at mealtime Prednisone Discontinued 60 MG PO daily March 16, 2019 7:50am May 01, 2019 1:06pm administer with food or milk Start: 03-23-2018 End: 11-01-2018 take 60 mg by mouth once daily at mealtime Prednisone Discontinued 60 MG PO daily September 07, 2018 11:00pm November 01, 2018 12:13pm administer with food or milk Start: 01-16-2018 End: 02-04-2018 take 40 mg by mouth once daily at mealtime Prednisone Discontinued 40 MG PO DAILY January 15, 2018 11:00pm February 04, 2018 7:56am With food Start: 08-23-2017 End: 09-13-2017 Prednisone Discontinued 10 M G PO DIRECTED August 22, 2017 11:00pm September 13, 2017 8:13am TAKE 4 TABLETS BY MOUTH DAILY WITH FOOD FOR 3 DAYS, THEN TAKE 3 TABLETS BY MOUTH DAILY WITH FOOD FOR 3 DAYS, THEN TAKE 2 TABLETS BY MOUTH DAILY WITH FOOD FOR 3 DAYS, THEN TAKE 1 TABLETS BY MOUTH DAILY WITH FOOD FOR 3 DAYS, THEN STOP Comment on above: Take 2 tablets by mo [facility] once daily for 4 days. Take daily with food. Take 4 tabs daily fo r 3 days, then 2 tabs daily for 3 days, then 1 tab daily for 3 days with food. promethazine hydrochloride 25 mg oral tablet (20 sources) Phenothiazine Start: 07-28-19 23 take 1 tablet by mouth three times daily Promethazine (Phenergan) 25 mg Tablet Active 25 MG PO THREE TIMES A DAY July 26, 2022 11:00pm Start: 07-17-2022 End: 04-01-2024 take 1 tablet by mouth every eight hours as needed promethazine (PHENERGAN) 25 mg tablet Take 1 tablet by mouth every 8 hours as needed. 30 tablet 07/17/2022 04/01/2024 Discontinued (Course of therapy completed) Comment on above: Take 1 tablet by jose eduardo every 8 hours as needed. raNITIdine 150 mg oral tablet (11 sources) Histamine-2 Receptor Antagonist Start: 03-19-2014 End: 11-13-2019 ranitidine 150 mg oral tablet (NF) Dose : 150 mg = 1 tab(s), Oral, qAM Start Date: 03/19/14 Status: Ordered Medication Dispense Status: Completed Total Allowed Fills: 1 Fills Dispensed: 0 TRUE METRIX GLUCOSE METER (20 sources) Start: 05-22-2022 TRUE METRIX GLUCOSE METER test blood sugar DIRECTED 05/22/2022 Active Start: 05-22-2022 TRUE METRIX GL UCOSE METER test blood sugar DIRECTED 0 05/22/2022 Active Comment on above: test blood sugar DIRECTED Completed/Discontinued Medications Medication Drug Class(es) Dates Sig (Normalized) Sig (Original) acetaminophen 325 mg / HYDROcodone bitartrate 5 mg oral tablet (2 sources) Opioid Agonist Start: 05-28-2022 End: 06-04-2022 take 1 tablet by mouth every six hours as needed for pain HYDROcodone-acetamin ophen (NORCO) 5-325 mg per tablet Indications: Acute pain of right knee Take 1 tablet by mouth every 6 hours as needed for pain for up to 7 days. 24 tablet 0 05/28/2022 06/04/2022 Comment on above: Take 1 tablet by jose eduardo th every 6 hours as needed for pain for up to 7 days. atorvastatin 10 mg oral tablet (20 sources) HMG-CoA Reductase Inhibitor Start: 05-24-2019 End: 04-01-2024 take 1 tablet by mouth once daily atorvastatin (LIPITOR) 10 mg tablet Indications: Other hyperlipidemia Take 1 tablet by mouth once daily. 90 tablet 3 02/16/2024 04/01/2024 Discontinued (Course of therapy completed) Start: 10-13-2016 take 1 dose by mouth once daily atorvastatin Oral, qDay Start Date: 10/13/16 Status: Ordered Medication Dispense Status: Completed Total Allowed Fills: 1 Fills Dispensed: 0 Start: 10-13-2016 atorvastatin O ral, qDay Start Date: 10/13/16 Status: Ordered Repeat number: 1 Start: 10-13-2016 atorvastatin O ral, qDay Start Date: 10/13/16 Status: Ordered Comment on above: Take 1 tablet by jose eduardo th once daily. benzonatate 100 mg oral capsule (20 sources) Non-narcotic Antitussive Start: End: take 2 capsules by mouth every eight hours as needed benzonatate (TESSALON PERLE) 100 mg capsule Take 2 capsules by mouth three times a day as needed for cough. 60 capsule 2 04/16/2023 12/03/2023 Discontinued Start: 12-14-2019 End: 02-26-2021 take 100 mg by mouth three times daily Benzonatate Discontinued 100 MG PO THREE TIMES A DAY December 13, 2019 11:12pm February 26, 2021 11:55am Comment on above: Take 2 capsules by out three times a day as needed for cough. 60 actuat budesonide 0.16 mg/actuat / formoterol fumarate 0.0045 mg/actuat metered dose inhaler (20 sources) Corticosteroid, beta2-Adrenergic Agonist Start: 05-13-2022 End: 04-01-2024 SYMBICORT 160-4.5 mcg/actuation inhaler 05/13/2022 04/01/2024 Discontinued (Course of therapy completed) Start: 01-22-2022 take 1 puff(s) by mo ilh twice daily Budesonide-Formoterol (Symbicort) 160-4.5 mcg/actuation HFA aerosol inhaler Active 2 PUFF INHALATION TWICE A DAY 1 January 22, 2022 6:57am administer with spacer, rinse mouth after each use Start: 01-22-2022 take 1 puff(s) by mo ut twice daily Budesonide-Formoterol (Symbicort) 160-4.5 mcg/actuation HFA aerosol inhaler Active 2 PUFF INHALATION TWICE A DAY 1 January 22, 2022 7:57am administer with spacer, rinse mouth after each use Start: 07-11-2021 End: 01-22-2022 take 1 puff(s) by mouth twice daily Budesonide-Formoterol (Symbicort) 160-4.5 mcg/actuation HFA aerosol inhaler Discontinued 2 PUFF INHALATION TWICE A DAY 1 July 11, 2021 8:50am January 22, 2022 6:58am administer with spacer, rinse mouth after each use Start: 07-11-2021 End: 01-22-2022 take 1 puff(s) by mouth twice daily Budesonide-Formoterol (Symbicort) 160-4.5 mcg/actuation HFA aerosol inhaler Discontinued 2 PUFF INHALATION TWICE A DAY 1 July 11, 2021 9:50am January 22, 2022 7:58am administer with spacer, rinse mouth after each use Start: 12-31-2020 End: 07-11-2021 take 1 puff(s) by mouth twice daily Budesonide-Formoterol (Symbicort) 160-4.5 mcg/actuation HFA aerosol inhaler Discontinued 2 PUFF INHALATION TWICE A DAY 1 December 31, 2020 6:58am July 11, 2021 8:50am administer with spacer, rinse mouth after each use Start: 12-31-2020 End: 07-11-2021 take 1 puff(s) by mouth twice daily Budesonide-Formoterol (Symbicort) 160-4.5 mcg/actuation HFA aerosol inhaler Discontinued 2 PUFF INHALATION TWICE A DAY 1 December 31, 2020 7:58am July 11, 2021 9:50am administer with spacer, rinse mouth after each use Start: 05-14-2020 End: 12-31-2020 take 1 puff(s) by mouth twice daily Budesonide-Formoterol (Symbicort) 160-4.5 mcg/actuation HFA aerosol inhaler Discontinued 2 PUFF INHALATION TWICE A DAY 1 May 14, 2020 12:00am December 31, 2020 6:58am administer with spacer, rinse mouth after each use Start: 05-14-2020 End: 12-31-2020 take 1 puff(s) by mouth twice daily Budesonide-Formoterol (Symbicort) 160-4.5 mcg/actuation HFA aerosol inhaler Discontinued 2 PUFF INHALATION TWICE A DAY 1 May 14, 2020 1:00am December 31, 2020 7:58am administer with spacer, rinse mouth after each use Start: 09-20-2017 End: 05-01-2019 take 1 puff(s) by mouth twice daily Budesonide-Formoterol (Symbicort) 160-4.5 mcg/actuation HFA aerosol inhaler Discontinued 2 PUFF INHALATION TWICE A DAY September 19, 2017 11:00pm May 01, 2019 1:30pm administer with spacer, rinse mouth after each use cefdinir 300 mg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 both shoulders] Onset: 5 Episodic Other nutritional; endocrine; and metabolic disorders (20 sources) Body mass index 40+ - severely obese; Translations: [Body mass index (BMI) 50.0-59.9, adult] Onset: 5 08-28-2016 Chronic Other nutritional; endocrine; and metabolic disorders (6 sources) Obesity 10-13-2016 Chronic Other nutritional; endocrine; and metabolic disorders (2 sources) Drug-induced obesity; 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] 11-23-2022 Chronic Other nutritional; endocrine; and metabolic disorders (4 sources) Morbid (severe) obesity due to excess calories; Translations: [Morbid obesity] Onset: 5 11-10-2022 Chronic Other nutritional; endocrine; and metabolic disorders (2 sources) Morbid obesity; Translations: [Morbid (severe) obesity due to excess calories] 06-16-2024 Chronic Other nutritional; endocrine; and metabolic disorders (2 sources) Decrease in appetite; Translations: [Anorexia] Episodic Other nutritional; endocrine; and metabolic disorders (1 source) Weight gain; Translations: [Abnormal weight gain] 03-06-2023 Episodic Other screening for suspected conditions (not mental disorders or infectious disease) (1 source) Abnormal radiologic density, nodular; Translations: [Abnormal findings on diagnostic imaging of other specified body structures] 01-13-2024 Chronic Other screening for suspected conditions (not mental disorders or infectious disease) (20 sources) Patient encounter status; Translations: [Encounter for screening mammogram for malignant neoplasm of breast] Onset: 4 Episodic Other skin disorders (1 source) Multiple skin tags; Translations: [Other hypertrophic disorders of the skin] Episodic Other skin disorders (3 sources) Eruption; Translations: [Rash and other nonspecific skin eruption] 07-09-2023 Episodic Other skin disorders (1 source) Rash and other nonspecific skin eruption; Translations: [Rash] Onset: 5 Episodic Other upper respiratory infections (5 sources) Sinusitis; Translations: [Chronic sinusitis, unspecified] 09-13-2019 Chronic Otitis media and related conditions (2 sources) Dysfunction of bilateral eustachian tubes; Translations: [Other specified disorders of Eustachian tube, bilateral] Episodic Residual codes; unclassified (20 sources) Obstructive sleep apnea syndrome; Translations: [Obstructive sleep apnea (adult) (pediatric)] Onset: 8 04-04-2018 Chronic Residual codes; unclassified (4 sources) Obstructive sleep apnea (adult) (pediatric); Translations: [Obstructive sleep apnea (adult)(pediatric)] 05-01-2022 Chronic Residual codes; unclassified (6 sources) Insomnia 08-30-2014 Episodic Residual codes; unclassified (1 source) Procedure not done; Translations: [Procedure and treatment not carried out, unspecified reason] 12-10-2022 Episodic Residual codes; unclassified (2 sources) Chill; Translations: [Chills (without fever)] 01-21-2024 Episodic Residual codes; unclassified (1 source) Procedure and treatment not carried out due to patient leaving prior to being seen by health care provider; Translations: [Procedure and treatment not carried out due to patient leaving prior to being seen by health care provider] Onset: 4 Episodic Residual codes; unclassified (1 source) Tobacco use and exposure - finding; Translations: [Tobacco use] 10-20-2024 Episodic Residual codes; unclassified (1 source) Tobacco use; Translations: [Tobacco use] Onset: 5 Episodic Respiratory failure; insufficiency; arrest (adult) (3 sources) Chronic hypoxemic respiratory failure; Translations: [Chronic respiratory failure with hypoxia] Onset: 5 06-16-2024 Chronic Respiratory failure; insufficiency; arrest (adult) (5 sources) Acute respiratory failure; Translations: [Acute respiratory failure with hypoxia] 05-24-2019 Episodic Skin and subcutaneous tissue infections (8 sources) Cellulitis of abdominal wall ; Translations: [Cellulitis of abdominal wall] Onset: 5 Episodic Spondylosis; intervertebral disc disorders; other back problems (20 sources) Lumbosacral spondylosis without myelopathy; Translations: [Spondylosis without myelopathy or radiculopathy, lumbosacral region] Onset: 1 Resolved: 6 09-09-2020 Chronic Substance-related disorders (20 sources) Tobacco user; Translations: [Nicotine dependence, unspecified, uncomplicated] Onset: 9 10-03-2019 Chronic Thyroid disorders (20 sources) Hypothyroidism; Translations: [Hypothyroidism, unspecified] Onset: 2 07-16-2021 Chronic Unclassified (1 source) Subacute cough; Translations: [Subacute cough] Onset: 5 Unclassified (1 source) Acute cough; Translations: [Acute cough] Onset: 5 Unclassified (1 source) Cough, unspecified type; Translations: [Cough, unspecified type] Onset: 4 Viral infection (2 sources) Disease caused by 2019-nCoV; Translations: [COVID-19] 04-12-2023 Episodic Past or Other Problems Problem Classification Problem Date Documented Da te Episodic/Chronic Allergic reactions (20 sources) Allergic disorder of skin; Translations: [Allergic contact dermatitis, unspecified cause] Onset: 0 Resolved: 6 02-20-2016 Episodic Diabetes mellitus without complication (20 sources) Prediabetes; Translations: [Prediabetes] Onset: 2 07-16-2021 Episodic Gastrointestinal hemorrhage (20 sources) Rectal hemorrhage; Translations: [Hemorrhage of anus and rectum] Onset: 5 Resolved: 0 Episodic Gastrointestinal hemorrhage (1 source) Gastrointestinal hemorrhage Onset: 3 Hemorrhoids (20 sources) Hemorrhoids; Translations: [Unspecified hemorrhoids] Onset: 6 Resolved: 6 Episodic Mycoses (5 sources) 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; Translations: [Other forms of aspergillosis] Onset: 4 03-17-2024 Episodic Nonspecific chest pain (11 sources) Chest pain; Translations: [Chest pain, unspecified] Onset: 4 Episodic Other connective tissue disease (20 sources) Trigger thumb of right hand; Translations: [Trigger thumb, right thumb] Onset: 2 Episodic Other connective tissue disease (20 sources) Plantar fasciitis; Translations: [Plantar fascial fibromatosis] Onset: 7 12-17-2016 Episodic Other connective tissue disease (20 sources) Lateral epicondylitis of right humerus; Translations: [Lateral epicondylitis, right elbow] Onset: 7 Resolved: 0 11-02-2019 Episodic Other connective tissue disease (20 sources) Lateral epicondylitis of left humerus; Translations: [Lateral epicondylitis, left elbow] Onset: 8 Resolved: 0 11-02-2019 Episodic Other ear and sense organ disorders (20 sources) Hearing loss; Translations: [Unspecified hearing loss, unspecified ear] Resolved: 0 11-02-2019 Chronic Other infections; including parasitic (20 sources) Personal history of other infectious and parasitic diseases; Translations: [History of 2019 novel coronavirus disease (COVID-19)] Onset: 2 07-16-2021 Episodic Other inflammatory condition of skin (20 sources) Pruritus of skin; Translations: [Pruritus, unspecified] Onset: 9 Resolved: 6 02-20-2016 Episodic Other lower respiratory disease (1 source) Shortness of breath; Translations: [Shortness of breath] Onset: 4 Episodic Other nervous system disorders (20 sources) Carpal tunnel syndrome; Translations: [Carpal tunnel syndrome, unspecified upper limb] Onset: 1 Resolved: 6 02-20-2016 Chronic Other nervous system disorders (20 sources) Carpal tunnel syndrome of left wrist; Translations: [Carpal tunnel syndrome, left upper limb] Onset: 4 Resolved: 6 04-27-2016 Chronic Other nervous system disorders (20 sources) Carpal tunnel syndrome of right wrist; Translations: [Carpal tunnel syndrome, right upper limb] Onset: 4 Resolved: 6 04-27-2016 Chronic Other non-traumatic joint disorders (20 sources) Pain in elbow; Translations: [Pain in right elbow] Onset: 7 Resolved: 0 11-02-2019 Episodic Other skin disorders (20 sources) Skin tag; Translations: [Other hypertrophic disorders of the skin] Onset: 6 Resolved: 6 11-02-2018 Episodic Other skin disorders (20 sources) Inflamed seborrheic keratosis; Translations: [Inflamed seborrheic keratosis] Onset: 9 11-02-2018 Episodic Other skin disorders (20 sources) Lentiginosis; Translations: [Other melanin hyperpigmentation] Onset: 9 11-02-2018 Episodic Other upper respiratory infections (6 sources) Acute upper respiratory infection; Translations: [Acute upper respiratory infection, unspecified] Onset: 4 06-30-2023 Episodic Pulmonary heart disease (1 source) Other pulmonary embolism without acute cor pulmonale; Translations: [Other pulmonary embolism without acute cor pulmonale] Onset: 4 Episodic Residual codes; unclassified (20 sources) Bilateral lower limb edema; Translations: [Localized edema] Onset: 1 11-04-2020 Episodic Residual codes; unclassified (1 source) Chills (without fever); Translations: [Chills] Onset: 4 Episodic Spondylosis; intervertebral disc disorders; other back problems (20 sources) Lumbago co-occurrent with right-side sciatica; Translations: [Lumbago with sciatica, right side] Onset: 6 04-27-2016 Episodic Unclassified (1 source) Patient encounter status 10-31-2024 Results Test Name Value Interpretation Reference Range Facility CBC W Auto Differential pane l (Bld)on 12-22-2024 Basophils (Bld) [#/Vol] 0.04 10*3/uL Normal <0.11 [facility] Comment on above: Order Comment: Speci men Type: BLOOD SPECIMENOrdering Facility: [facility] Address: [address] [place] [address] Performed By: #### 5 7021-8 ####[facility] [place] LABCLIA [id number] [place] [address] [place] Basophils/100 WBC (Bld) 0.4 % Normal [facility] Comment on above: Order Comment: Speci men Type: BLOOD SPECIMENOrdering Facility: [facility] Address: [address] [place] [address] Performed By: #### 5 7021-8 ####[facility] [place] LABIA [id number] [place] [id number] [place] Differential cell count method Nom (Bld) Auto Normal [facility] Comment on above: Order Comment: Speci men Type: BLOOD SPECIMENOrdering Facility: [facility] Address: [address] [place] [address] Performed By: #### 5 7021-8 ####[facility] [place] LABCLIA [id number] [place] [address] [place] Eosinophils (Bld) [#/Vol] 0.07 10*3/uL Normal <0.46 [facility] Comment on above: Order Comment: Speci men Type: BLOOD SPECIMENOrdering Facility: [facility] Address: [address] [place] [address] Performed By: #### 5 7021-8 ####[facility] [place] LABCLIA [id number] [place] [address] [place] Eosinophils/100 WBC (Bld) 0.7 % Normal [facility] Comment on above: Order Comment: Speci men Type: BLOOD SPECIMENOrdering Facility: [facility] Address: [address] [place] [address] Performed By: #### 5 7021-8 ####[facility] [place] LABCLIA [id number] [place] [address] [place] Erythrocyte distribution width (RBC) [Ratio] 14.7 % Normal 11.5-15.0 [facility] Comment on above: Order Comment: Speci men Type: BLOOD SPECIMENOrdering Facility: [facility] Address: [address] [place] [address] Performed By: #### 5 7021-8 ####[facility] [place] LABCLIA [id number] [place] [address] [place] Hematocrit (Bld) [Volume fraction] 46.5 % High 36.0-46.0 [facility] Comment on above: Order Comment: Speci men Type: BLOOD SPECIMENOrdering Facility: [facility] Address: [address] [place] [address] Performed By: #### 5 7021-8 ####[facility] [place] LABCLIA [id number] [place] [address] [place] Hemoglobin (Bld) [Mass/Vol] 14.7 g/dL Normal 11.5-15.5 [facility] Comment on above: Order Comment: Speci men Type: BLOOD SPECIMENOrdering Facility: [facility] Address: [address] [place] [address] Performed By: #### 5 7021-8 ####[facility] [place] LABCLIA [id number] [place] [address] [place] Immature granulocytes (Bld) [#/Vol] 0.04 10*3/uL Normal <0.10 [facility] Comment on above: Order Comment: Speci men Type: BLOOD SPECIMENOrdering Facility: [facility] Address: [address] [place] [address] Performed By: #### 5 7021-8 ####[facility] [place] LABIA [id number] [place] [address] [place] Immature granulocytes/100 WBC (Bld) 0.4 % Normal [facility] Comment on above: Order Comment: Speci men Type: BLOOD SPECIMENOrdering Facility: [facility] Address: [address] [place] [address] Performed By: #### 5 7021-8 ####[facility] [place] LABCLIA [id number] [place] [address] [place] Lymphocytes (Bld) [#/Vol] 2.37 10*3/uL Normal 1.00-4.00 [facility] Comment on above: Order Comment: Speci men Type: BLOOD SPECIMENOrdering Facility: [facility] Address: [address] [place] [address] Performed By: #### 5 7021-8 ####[facility] [place] LABCLIA [id number] [address] [place] Lymphocytes/100 WBC (Bld) 22.9 % Normal [facility] Comment on above: Order Comment: Speci men Type: BLOOD SPECIMENOrdering Facility: [facility] Address: [address] [place] [address] Performed By: #### 5 7021-8 ####[facility] [place] LABCLIA [id number] [place] [address] [place] MCH (RBC) [Entitic mass] 29.9 pg Normal 26.0-34.0 [facility] Comment on above: Order Comment: Speci men Type: BLOOD SPECIMENOrdering Facility: [facility] Address: [address] [place] [address] Performed By: #### 5 7021-8 ####[facility] [place] LABCLIA [id number] [address] [place] MCHC (RBC) [Mass/Vol] 31.6 g/dL Normal 30.5-36.0 [facility] Comment on above: Order Comment: Speci men Type: BLOOD SPECIMENOrdering Facility: [facility] Address: [address] [place] [address] Performed By: #### 5 7021-8 ####[facility] [place] LABIA [id number] [place] [address] [place] MCV (RBC) [Entitic vol] 94.5 fL Normal 80.0-100.0 [facility] Comment on above: Order Comment: Speci men Type: BLOOD SPECIMENOrdering Facility: [facility] Address: [address] [place] [address] Performed By: #### 5 7021-8 ####[facility] [place] LABCLIA [id number] [place] [address] [place] Monocytes (Bld) [#/Vol] 0.71 10*3/uL Normal <0.87 [facility] Comment on above: Order Comment: Speci men Type: BLOOD SPECIMENOrdering Facility: [facility] Address: [address] [place] [address] Performed By: #### 5 7021-8 ####[facility] [place] LABCLIA [id number] [place] [address] [place] Monocytes/100 WBC (Bld) 6.8 % Normal [facility] Comment on above: Order Comment: Speci men Type: BLOOD SPECIMENOrdering Facility: [facility] Address: [address] [place] [address] Performed By: #### 5 7021-8 ####[facility] [place] LABCLIA [id number] [place] [address] [place] Neutrophils (Bld) [#/Vol] 7.14 10*3/uL Normal 1.45-7.50 [facility] Comment on above: Order Comment: Speci men Type: BLOOD SPECIMENOrdering Facility: [facility] Address: [address] [place] [address] Performed By: #### 5 7021-8 ####[facility] [place] LABCLIA [id number] [place] [address] [place] Neutrophils/100 WBC (Bld) 68.8 % Normal [facility] Comment on above: Order Comment: Speci men Type: BLOOD SPECIMENOrdering Facility: [facility] Address: [address] [place] [address] Performed By: #### 5 7021-8 ####[facility] [place] LABCLIA [id number] [place] [id number] [place] Nucleated RBC (Bld) [#/Vol] 10*3/uL Normal <0.01 [facility] Comment on above: Order Comment: Speci men Type: BLOOD SPECIMENOrdering Facility: [facility] Address: [address] [place] [address] Performed By: #### 5 7021-8 ####[facility] [place] LABCLIA [id number] [place] [address] [place] Nucleated RBC/100 WBC (Bld) [Ratio] 0.0 /100 WBC Normal [facility] Comment on above: Order Comment: Speci men Type: BLOOD SPECIMENOrdering Facility: [facility] Address: [address] [place] [address] Performed By: #### 5 7021-8 ####[facility] [place] LABIA [id number] [place] [address] [place] Platelet mean volume (Bld) [Entitic vol] 10.0 fL Normal 9.0-12.7 [facility] Comment on above: Order Comment: Speci men Type: BLOOD SPECIMENOrdering Facility: [facility] Address: [address] [place] [address] Performed By: #### 5 7021-8 ####[facility] [place] LABCLIA [id number] [place] [address] [place] Platelets (Bld) [#/Vol] 273 10*3/uL Normal 150-400 [facility] Comment on above: Order Comment: Speci men Type: BLOOD SPECIMENOrdering Facility: [facility] Address: [address] [place] [address] Performed By: #### 5 7021-8 ####[facility] [place] LABIA [id number] [place] [address] [place] RBC (Bld) [#/Vol] 4.92 10*6/uL Normal 3.90-5.20 [facility] Comment on above: Order Comment: Speci men Type: BLOOD SPECIMENOrdering Facility: [facility] Address: [address] [place] [address] Performed By: #### 5 7021-8 ####[facility] [place] LABCLIA [id number] [place] [id number] [place] WBC (Bld) [#/Vol] 10.37 10*3/uL Normal 3.70-11.00 [facility] Comment on above: Order Comment: Speci men Type: BLOOD SPECIMENOrdering Facility: [facility] Address: [address] [place] [address] Performed By: #### 5 7021-8 ####[facility] [place] LABCLIA [id number] [address] [address] [place] CNOVon 12-22-2024 CNOV Normal [facility] metabolic 2000 panelon 12-22-2024 Albumin [Mass/Vol] 4.1 g/dL Normal 3.9-4.9 [facility] Comment on above: Order Comment: Speci men Type: BLOOD SPECIMENOrdering Facility: [facility] Address: [address] [place] [address] Performed By: #### 2 4323-8 ####[facility] LABCLIA [id number] [place] [id number] [place] ALP [Catalytic activity/Vol] 109 U/L Normal 34-123 [facility] Comment on above: Order Comment: Speci men Type: BLOOD SPECIMENOrdering Facility: [facility] Address: [address] [place] [address] Performed By: #### 2 4323-8 ####[facility] [place] LABCLIA [id number] [address] [address] [place] ALT [Catalytic activity/Vol] 20 U/L Normal 7-38 [facility] Comment on above: Order Comment: Speci men Type: BLOOD SPECIMENOrdering Facility: [facility] Address: [address] [place] [address] Performed By: #### 2 4323-8 ####[facility] LABCLIA [id number] [address] [address] [place] Anion gap [Moles/Vol] 13 mmol/L Normal 8-15 [facility] Comment on above: Order Comment: Speci men Type: BLOOD SPECIMENOrdering Facility: [facility] Address: [address] [place] [id number] Performed By: #### 2 4323-8 ####[facility] LABCLIA [id number] [address] [address] [place] AST [Catalytic activity/Vol] 21 U/L Normal 13-35 [facility] Comment on above: Order Comment: Speci men Type: BLOOD SPECIMENOrdering Facility: [facility] Address: [address] [place] [address] Performed By: #### 2 4323-8 ####[facility] LABCLIA [id number] [address] [address] [place] Bilirubin [Mass/Vol] 0.3 mg/dL Normal 0.2-1.3 [facility] Comment on above: Order Comment: Speci men Type: BLOOD SPECIMENOrdering Facility: [facility] Address: [address] [place] [address] Performed By: #### 2 4323-8 ####[facility] LABCLIA [id number] [address] [address] [place] Calcium [Mass/Vol] 9.8 mg/dL Normal 8.5-10.2 [facility] Comment on above: Order Comment: Speci men Type: BLOOD SPECIMENOrdering Facility: [facility] Address: [address] [place], [place] [address] Performed By: #### 2 4323-8 ####[facility] [place] LABCLIA [id number] [address] [place] [address] [place] Chloride [Moles/Vol] 103 mmol/L Normal 98-107 [facility] Comment on above: Order Comment: Speci men Type: BLOOD SPECIMENOrdering Facility: [facility] Address: [address] [place], [place] [address] Performed By: #### 2 4323-8 ####[facility] LABCLIA [id number] [address] [address] [place] CO2 [Moles/Vol] 23 mmol/L Normal 22-30 [facility] Comment on above: Order Comment: Speci men Type: BLOOD SPECIMENOrdering Facility: [facility] Address: [address] [place] [address] Performed By: #### 2 4323-8 ####[facility] [place] LABCLIA [id number] [facility] [place] [id number] [place] Creatinine [Mass/Vol] 0.70 mg/dL Normal 0.58-0.96 [facility] Comment on above: Order Comment: Speci men Type: BLOOD SPECIMENOrdering Facility: [facility] Address: [address] [place] [address] Performed By: #### 2 4323-8 ####[facility] LABCLIA [id number] [facility] [address] [place] eGFRcr SerPlBld CKD-EPI 2020 108 mL/min/1.73m??? Normal >=60 [facility] Comment on above: Order Comment: Speci men Type: BLOOD SPECIMENOrdering Facility: [facility] Address: [address] [place] [address] Result Comment: Jen mated Glomerular Filtration Rate (eGFR) is calculated using the 2020 CKD-EPI creatinine equation. This equation utilizes serum creatinine, sex, and age as parameters. The creatinine assay has traceable calibration to isotope dilution-mass spectrometry. Refer to KDIGO guidelines for clinical interpretation. In patients with unstable renal function, e.g. those with acute kidney injury, the eGFR may not accurately reflect actual GFR. Performed By: #### 2 4323-8 ####[facility] LABCLIA [id number] [place] [id number] [place] Glucose [Mass/Vol] 83 mg/dL Normal 74-99 [facility] Comment on above: Order Comment: Speci men Type: BLOOD SPECIMENOrdering Facility: [facility] Address: [address] [place] [address] Result Comment: [facility] [place] [facility] Association (ADA) provides guidance for cutoff values for fasting glucose and random glucose. The ADA defines fasting as no caloric intake for at least 8 hours. Fasting plasma glucose results between 100 to 125 mg/dL indicate increased risk for diabetes (prediabetes).Fasting plasma glucose results greater than or equal to 126 mg/dL meet the criteria for diagnosis of diabetes. In the absence of unequivocal hyperglycemia, results should be confirmed by repeat testing. In a patient with classic symptoms of hyperglycemia or hyperglycemic crisis, random plasma glucose results greater than or equal to 200 mg/dL meet the criteria for diagnosis of diabetes.Reference: Standards of Medical Care in Diabetes 2016, [place] Diabetes Association. Diabetes Care. 2016.39(Suppl 1). Performed By: #### 2 4323-8 ####[facility] LABCLIA [id number] [place] [address] [place] Potassium [Moles/Vol] 4.4 mmol/L Normal 3.7-5.1 [facility] Comment on above: Order Comment: Speci men Type: BLOOD SPECIMENOrdering Facility: [facility] Address: [address] [place] [address] Performed By: #### 2 4323-8 ####[facility] LABCLIA [id number] [place] [id number] [place] Protein [Mass/Vol] 7.7 g/dL Normal 6.3-8.0 [facility] Comment on above: Order Comment: Speci men Type: BLOOD SPECIMENOrdering Facility: [facility] Address: [address] [place] [address] Performed By: #### 2 4323-8 ####[facility] LABCLIA [id number] [place] [id number] [place] Sodium [Moles/Vol] 139 mmol/L Normal 136-144 [facility] Comment on above: Order Comment: Speci men Type: BLOOD SPECIMENOrdering Facility: [facility] Address: [address] [place] [address] Performed By: #### 2 4323-8 ####[facility] LABCLIA [id number] [place] [id number] [place] Urea nitrogen [Mass/Vol] 9 mg/dL Normal 7-21 [facility] Comment on above: Order Comment: Rashad irwin Type: BLOOD SPECIMENOrdering Facility: [facility] Address: [address] [place] [address] Performed By: #### 2 4323-8 ####[facility] LABIA [id number] [place] [id number] [place] HbA1c (Bld)on 12-22-2024 Average glucose Estimated from glycated hemoglobin (Bld) [Mass/Vol] 117 mg/dL Normal [facility] Comment on above: Order Comment: Rashad irwin Type: BLOOD SPECIMENOrdering Facility: [facility] Address: [address] [place] [address] Result Comment: eAG: (Estimated average glucose) is a calculated value from HgbA1c and is appeals representative of the average blood glucose level in the last 2-3 month period. Performed By: #### 5 5454-3 ####[facility] LABIA [id number] [place] [address] [place] HbA1c (Bld) [Mass fraction] 5.7 % High 4.3-5.6 [facility] Comment on above: Order Comment: Rashad irwin Type: BLOOD SPECIMENOrdering Facility: [facility] Address: [address] [place] [address] Result Comment: [place] Diabetes Association guidelines indicate that patients with HgbA1c in the range 5.7-6.4% are at increased risk for development of diabetes, and intervention by lifestyle modification may be beneficial. HgbA1c greater or equal to 6.5% is considered diagnostic of diabetes. Performed By: #### 5 5454-3 ####[facility] LABIA [id number] [address] [address] [place] CNOVon 12-21-2024 CNOV Normal [facility] CNPNon 12-21-2024 CNPN Normal [facility] CNOVon 11-20-2024 CNOV Normal [facility] CNPTOUTREACHon 10-31-2024 CNPTOUTREACH Normal [facility] CNOVon 10-20-2024 CNOV Normal [facility] CNOVon 10-17-2024 CNOV Normal [facility] .Auto Diffon 10-15-2024 Basophil, Absolute 0.0 10 3/mcL Normal 0.0-0.3 [facility] Comment on above: Performed By: #### A DIFF, ANEU, BMP, TROPHS, MDW, GFR, CBC #### [address] [address] Basophils/100 WBC (Bld) 0.4 % Normal 0.0-2.5 [facility] Comment on above: Performed By: #### A DIFF, ANEU, BMP, TROPHS, MDW, GFR, CBC #### [address] [address] Eosinophil, Absolute 0.1 10 3/mcL Normal 0.0-0.7 [facility] Comment on above: Performed By: #### A DIFF, ANEU, BMP, TROPHS, MDW, GFR, CBC #### [address] [address] Eosinophils/100 WBC (Bld) 0.6 % Normal 0.0-6.0 [facility] Comment on above: Performed By: #### A DIFF, ANEU, BMP, TROPHS, MDW, GFR, CBC #### [address] [address] Lymphocyte, Absolute 3.4 10 3/mcL Normal 0.9-4.3 [facility] Comment on above: Performed By: #### A DIFF, ANEU, BMP, TROPHS, MDW, GFR, CBC #### [address] [address] Lymphocytes/100 WBC (Bld) 29.7 % Normal 20.0-40.0 [facility] Comment on above: Performed By: #### A DIFF, ANEU, BMP, TROPHS, MDW, GFR, CBC #### [address] [address] Monocyte, Absolute 0.7 10 3/mcL Normal 0.1-1.4 [facility] Comment on above: Performed By: #### A DIFF, ANEU, BMP, TROPHS, MDW, GFR, CBC #### [place] [address] [place], [place] [address] Monocytes/100 WBC (Bld) 6.5 % Normal 2.0-13.0 [facility] Comment on above: Performed By: #### A DIFF, ANEU, BMP, TROPHS, MDW, GFR, CBC #### [address] [address] Neutrophils/100 WBC (Bld) 62.8 % Normal 50.0-75.0 [facility] Comment on above: Performed By: #### A DIFF, ANEU, BMP, TROPHS, MDW, GFR, CBC #### [address] [address] .GFRon 10-15-2024 Estimated Glomerular Filtration Rate 110 ml/min/1.73sqm Normal [facility] Comment on above: Result Comment: Stages of Chronic Kidney Disease (CKD) Stage Description eGFR(ml/min/1.73 sq.m.) CKD 1 Normal kidney function or >=90 normal kindney function with possible kidney damage (ex. Proteinuria) CKD 2 Kidney damage with mild loss 60-89 of kidney function CKD 3a Mild to moderate loss of kidney 45-59 function CKD 3b Moderate to severe loss of 30-44 of kindey function CKD 4 Severe loss of kidney function 15-29 CKD 5 Kidney failure <15 Note: (go live 2024) the eGFR calculation was updated to the 2020 CKD-EPI creatinine equation without a race factor to calculate the eGFR results. Performed By: #### A DIFF, ANEU, BMP, TROPHS, MDW, GFR, CBC #### [place] [address] [place], [place] [address] .MDWon 10-15-2024 Monocyte Distribution Width 16.00 Normal 0.00-20.00 [facility] Comment on above: Result Comment: For ED adult patients suspected of sepsis, MDW<=20.0 does not rule out sepsis or risk of sepsis Performed By: #### A DIFF, ANEU, BMP, TROPHS, MDW, GFR, CBC #### [address] [address] .NEUABSon 10-15-2024 Neutrophil, Absolute 7.1 10 3/mcL Normal 2.3-8.1 [facility] Comment on above: Performed By: #### A DIFF, ANEU, BMP, TROPHS, MDW, GFR, CBC #### [address] [address] BMPon 10-15-2024 BUN/Creatinine Ratio 20 ratio Normal 7-27 [facility] Comment on above: Performed By: #### A DIFF, ANEU, BMP, TROPHS, MDW, GFR, CBC #### [place] [id number] Calcium [Mass/Vol] 9.2 mg/dL Normal 8.4-10.[address] [facility] Comment on above: Performed By: #### A DIFF, ANEU, BMP, TROPHS, MDW, GFR, CBC #### [place] [address] Chloride [Moles/Vol] 101 mmol/L Normal 98-107 [facility] Comment on above: Performed By: #### A DIFF, ANEU, BMP, TROPHS, MDW, GFR, CBC #### [place] [id number] CO2 [Moles/Vol] 27 mmol/L Normal 22-29 [facility] Comment on above: Performed By: #### A DIFF, ANEU, BMP, TROPHS, MDW, GFR, CBC #### [place] [address] Creatinine [Mass/Vol] 0.65 mg/dL Normal 0.51-0.95 [facility] Comment on above: Performed By: #### A DIFF, ANEU, BMP, TROPHS, MDW, GFR, CBC #### [place] [address] Electrolyte Balance 4.0 mEq/L Normal 4.0-15.0 [facility] Comment on above: Performed By: #### A DIFF, ANEU, BMP, TROPHS, MDW, GFR, CBC #### [address] [address] Glucose [Mass/Vol] 93 mg/dL Normal 70-[address] [facility] Comment on above: Performed By: #### A DIFF, ANEU, BMP, TROPHS, MDW, GFR, CBC #### [address] [address] Potassium [Moles/Vol] 3.8 mmol/L Normal 3.5-5.1 [facility] Comment on above: Performed By: #### A DIFF, ANEU, BMP, TROPHS, MDW, GFR, CBC #### [address] [address] Sodium [Moles/Vol] 132 mmol/L Low 136-[address] [facility] Comment on above: Performed By: #### A DIFF, ANEU, BMP, TROPHS, MDW, GFR, CBC #### [address] [address] Urea nitrogen [Mass/Vol] 13 mg/dL Normal 7-18 [facility] Comment on above: Performed By: #### A DIFF, ANEU, BMP, TROPHS, MDW, GFR, CBC #### [address] [address] CBCon 10-15-2024 Erythrocyte distribution width (RBC) [Ratio] 15.0 % Normal 11.5-15.5 [facility] Comment on above: Performed By: #### A DIFF, ANEU, BMP, TROPHS, MDW, GFR, CBC #### [address] [address] Hematocrit (Bld) [Volume fraction] 44.8 % Normal 34.0-46.0 [facility] Comment on above: Performed By: #### A DIFF, ANEU, BMP, TROPHS, MDW, GFR, CBC #### [address] [address] Hgb 15.1 G/dL Normal 12.0-16.0 [facility] Comment on above: Performed By: #### A DIFF, ANEU, BMP, TROPHS, MDW, GFR, CBC #### [address] [address] MCH (RBC) [Entitic mass] 30.5 pg Normal 27.0-33.0 [facility] Comment on above: Performed By: #### A DIFF, ANEU, BMP, TROPHS, MDW, GFR, CBC #### [address] [address] MCHC 33.7 G/dL Normal 32.0-36.0 [facility] Comment on above: Performed By: #### A DIFF, ANEU, BMP, TROPHS, MDW, GFR, CBC #### [address] [address] MCV (RBC) [Entitic vol] 90.5 fL Normal 80.0-99.0 [facility] Comment on above: Performed By: #### A DIFF, ANEU, BMP, TROPHS, MDW, GFR, CBC #### [address] [address] Platelet 248 10 3/mcL Normal 150-450 [facility] Comment on above: Performed By: #### A DIFF, ANEU, BMP, TROPHS, MDW, GFR, CBC #### [address] [address] Platelet mean volume (Bld) [Entitic vol] 7.5 fL Normal 6.6-10.5 [facility] Comment on above: Performed By: #### A DIFF, ANEU, BMP, TROPHS, MDW, GFR, CBC #### [address] [address] RBC 4.95 10 6/mcL Normal 4.10-5.30 [facility] Comment on above: Performed By: #### A DIFF, ANEU, BMP, TROPHS, MDW, GFR, CBC #### [facility] [address] [place], [place] [address] WBC 11.3 10 3/mcL High 4.5-10.8 [facility] Comment on above: Performed By: #### A DIFF, ANEU, BMP, TROPHS, MDW, GFR, CBC #### [facility] [address] [place], [place] [address] CT ANGIOGRAPHY CHEST W/CONTR Marcio 10-15-2024 CT ANGIOGRAPHY CHEST W/CONTRAST ORIGINAL EXAMINATION: CTA OF THE CHEST 10/15/2024 1:05 am TECHNIQUE: CTA of the chest was performed after the administration of intravenous contrast. Multiplanar reformatted images are provided for review. MIP images are provided for review. Automated exposure control, iterative reconstruction, and/or weight based adjustment of the mA/kV was utilized to reduce the radiation dose to as low as reasonably achievable. COMPARISON: CT angiogram of the chest on 01/04/2024 HISTORY: ORDERING SYSTEM PROVIDED HISTORY: Reason for Exam: chest pain; suspect PE FINDINGS: Pulmonary Arteries: Pulmonary arteries are adequately opacified for evaluation. No evidence of intraluminal filling defect to suggest pulmonary embolism. Main pulmonary artery is normal in caliber. Mediastinum: No evidence of mediastinal lymphadenopathy. The heart and pericardium demonstrate no acute abnormality. There is no acute abnormality of the thoracic aorta. Lungs/pleura: There is linear subsegmental atelectasis or scar posteriorly in the right upper lobe, and also in the lingular segment of left upper lobe. The lungs are otherwise well expanded. No pleural fluid or pneumothorax is present. Upper Abdomen: Limited images of the upper abdomen are unremarkable. Soft Tissues/Bones: No acute bone or soft tissue abnormality. IMPRESSION: No evidence of pulmonary embolism or other acute cardiopulmonary process. Interpreted by: Ervin Gonzalez MD Preliminary Report By: Ervin Gonzalez MD Electronically signed By Ervin Gonzalez MD Dictated Date: 10/15/2024 1:07:46 AM Prelim Date: 10/15/2024 1:14:40 AM Sign Date: 10/15/2024 1:14:40 AM Ordering Provider: DAVID Aranda [facility] LABORATORYOrdered By: SYSTEM SYSTEM on 10-15-2024 Basophils (Bld) [#/Vol] 0.0 103/mcL Normal 0.0 - 0.3 10^3/mcL AO Workflow SS Basophils/100 WBC (Bld) 0.4 % Normal 0.0 - 2.5 % AO Workflow SS Calcium [Mass/Vol] 9.2 mg/dL Normal 8.4 - 10. 2 mg/dL AO ADM SS Chloride [Moles/Vol] 101 mmol/L Normal 98 - 10 7 mmol/L AO ADM SS CO2 [Moles/Vol] 27 mmol/L Normal 22 - 29 mmol/L AO ADM SS Creatinine [Mass/Vol] 0.65 mg/dL Normal 0.51 - 0.95 mg/dL AO ADM SS Electrolyte Balance 4.0 mEq/L Normal 4.0 - 15 .0 mEq/L AO ADM SS Eosinophil, Absolute 0.1 103/mcL Normal 0.0 - 0 .7 10^3/mcL AO Workflow SS Eosinophils/100 WBC (Bld) 0.6 % Normal 0.0 - 6.0 % AO Workflow SS Erythrocyte distribution width (RBC) [Ratio] 15.0 % Normal 11.5 - 15.5 % AO Workflow SS Estimated Glomerular Filtration Rate 110 ml/min/1.73sqm Invalid Interpretation Code AO Chemistry S Comment on above: Interpretive Data: Stages of Chronic Kidney Disease (CKD) Stage Description eGFR(ml/min/1.73 sq.m.) CKD 1 Normal kidney function or >=90 normal kindney function with possible kidney damage (ex. Proteinuria) CKD 2 Kidney damage with mild loss 60-89 of kidney function CKD 3a Mild to moderate loss of kidney 45-59 function CKD 3b Moderate to severe loss of 30-44 of kindey function CKD 4 Severe loss of kidney function 15-29 CKD 5 Kidney failure <15 Note: (go live 2024) the eGFR calculation was updated to the 2020 CKD-EPI creatinine equation without a race factor to calculate the eGFR results. Glucose [Mass/Vol] 93 mg/dL Normal 70 - 105 mg/dL AO ADM SS Hematocrit (Bld) [Volume fraction] 44.8 % Normal 34.0 - 46.0 % AO Workflow SS Hemoglobin (Bld) [Mass/Vol] 15.1 G/dL Normal 12.0 - 16.0 G/dL AO Workflow SS Lymphocytes (Bld) [#/Vol] 3.4 103/mcL Normal 0.9 - 4.3 10^3/mcL AO Workflow SS Lymphocytes/100 WBC (Bld) 29.7 % Normal 20.0 - 40.0 % AO Workflow SS MCH (RBC) [Entitic mass] 30.5 pg Normal 27.0 - 33.0 pg AO Workflow SS MCHC 33.7 G/dL Normal 32.0 - 36.0 G/dL AO Workflow SS MCV (RBC) [Entitic vol] 90.5 fL Normal 80.0 - 99.0 fL AO Workflow SS Monocyte distribution width Auto (Bld) [Entitic vol] 16.00 1 Normal 0.00 - 20.00 AO Workflow SS Comment on above: Result Comment: For ED adult patients suspected of sepsis, MDW<=20.0 does not rule out sepsis or risk of sepsis Monocytes (Bld) [#/Vol] 0.7 103/mcL Normal 0.1 - 1.4 10^3/mcL AO Workflow SS Monocytes/100 WBC (Bld) 6.5 % Normal 2.0 - 13.0 % AO Workflow SS Natriuretic peptide.B prohormone N-Terminal [Mass/Vol] 27 pg/mL Normal 0 - 125 pg/mL AO ADM SS Comment on above: Interpretive Data: N T-proBNP results of less than 300 pg/mL effectively rules out acute congestive heart failure with 99% negative predictive value. Neutrophils (Bld) [#/Vol] 7.1 103/mcL Normal 2.3 - 8.1 10^3/mcL AO Workflow SS Neutrophils/100 WBC (Bld) 62.8 % Normal 50.0 - 75.0 % AO Workflow SS Platelet mean volume (Bld) [Entitic vol] 7.5 fL Normal 6.6 - 10.5 fL AO Workflow SS Platelets (Bld) [#/Vol] 248 103/mcL Normal 150 - 450 10^3/mcL AO Workflow SS Potassium [Moles/Vol] 3.8 mmol/L Normal 3.5 - 5.1 mmol/L AO ADM SS RBC (Bld) [#/Vol] 4.95 106/mcL Normal 4.10 - 5.3 0 10^6/mcL AO Workflow SS Sodium [Moles/Vol] 132 mmol/L Low 136 - 145 mmol/L AO ADM SS Troponin I.cardiac DL <= 0.01 ng/mL [Mass/Vol] 4 ng/L Normal 0 - 51 ng/L AO ADM SS Comment on above: Interpretive Data: H igh Sensitive Troponin I Reference Ranges: Female: 0-51 ng/L Male: 0-76 ng/L Testing performed on [employer] using a homogeneous sandwich chemiluminescent immunoassay based on [employer] technology. Urea nitrogen [Mass/Vol] 13 mg/dL Normal 7 - 18 mg/dL AO ADM SS Urea nitrogen/Creatinine [Mass ratio] 20 ratio Normal 7 - 27 ratio AO ADM SS WBC (Bld) [#/Vol] 11.3 103/mcL High 4.5 - 10.8 10^3/mcL AO Workflow SS PBNPon 10-15-2024 Natriuretic peptide B (Bld) [Mass/Vol] 27 pg/mL Normal 0-125 [facility] Comment on above: Result Comment: NT-p roBNP results of less than 300 pg/mL effectively rules out acute congestive heart failure with 99% negative predictive value. Performed By: #### P BNP #### [address] [address] TROPHSon 10-15-2024 High Sensitivity Troponin I 4 ng/L Normal 0-51 [facility] Comment on above: Result Comment: High Sensitive Troponin I Reference Ranges: Female: 0-51 ng/L Male: 0-76 ng/L Testing performed on [employer] using a homogeneous sandwich chemiluminescent immunoassay based on [employer] technology. Performed By: #### A DIFF, ANEU, BMP, TROPHS, MDW, GFR, CBC #### [address] [address] Bacteria Spec Resp Culton Bacteria identified Respiratory culture Nom (Unsp spec) ORGANISM ID: 1 Moderate normal respiratory wing GRAM STAIN: Many Gram positive cocci Rare Polymorphonuclear leukocytes Abnormal [facility] Comment on above: Performed By: #### 3 2355-0 ####[facility] LABCLIA [id number] [place] [address] [place] ECG COMPLETEon 10-12-2024 Atrial Rate [address] [facility] Calculated P [place] 46 degrees [facility] Calculated R [place] 71 degrees [facility] Calculated T [place] 61 degrees [facility] P-R Interval [address] [facility] QRS Duration [address] [facility] QT Interval [address] [facility] QTC Calculation (Bazett) [address] [facility] Ventricular Rate 77 BPM [facility] NORMAL SINUS RHYTHM NONSPECIFIC ST ABNORMALITY ABNORMAL ECG Confirmed by MD THOMPSON QARAB ([id number]) on 10/12/2024 3:54:51 PM [facility] NAME : DARREN REINOSO PID : [id number] : 1980 Gender : Female Race : ORD : [id number] Procedure Date : Oct 11 2024 11:38:05 Edit Date : Oct 12 2024 15:54:55 Diagnosis: NORMAL SINUS RHYTHM NONSPECIFIC ST ABNORMALITY ABNORMAL ECG Confirmed by MD THOMPSON QARAB ([id number]) on 10/12/2024 3:54:51 PM Test Reason : R07.9 Chest pain, unspecified type Location : 185 : [facility] Overread By : MD THOMPSON QARAB Edited By : MD THOMPSON QARAB Referred By : , Acquired by : [id number], [facility] CBC W Auto Differential pane l (Bld)on 10-11-2024 Basophils (Bld) [#/Vol] 0.03 10*3/uL [facility] Basophils/100 WBC (Bld) 0.3 % [facility] Differential cell count method Nom (Bld) Auto [facility] Eosinophils (Bld) [#/Vol] 0.09 10*3/uL [facility] Eosinophils/100 WBC (Bld) 1 % [facility] Erythrocyte distribution width (RBC) [Ratio] 14 % 11.5 - 15.0 % [facility] Hematocrit (Bld) [Volume fraction] 44.4 % 36.0 - 46.0 % [facility] Hemoglobin (Bld) [Mass/Vol] 14 g/dL 11.5 - 15.5 g/dL [facility] Immature granulocytes (Bld) [#/Vol] 0.05 10*3/uL [facility] Immature granulocytes/100 WBC (Bld) 0.5 % [facility] Lymphocytes (Bld) [#/Vol] 2.51 10*3/uL [facility] Lymphocytes/100 WBC (Bld) 26.7 % [facility] MCH (RBC) [Entitic mass] 29.6 pg 26.0 - 34.[address] [facility] MCHC (RBC) [Mass/Vol] 31.5 g/dL 30.5 - 36.0 g/dL [facility] MCV (RBC) [Entitic vol] 93.9 fL 80.0 - 100.[address] [facility] Monocytes (Bld) [#/Vol] 0.61 10*3/uL [facility] Monocytes/100 WBC (Bld) 6.5 % [facility] Neutrophils (Bld) [#/Vol] 6.1 10*3/uL [facility] Neutrophils/100 WBC (Bld) 65 % [facility] Nucleated RBC (Bld) [#/Vol] NINF [facility] Nucleated RBC/100 WBC (Bld) [Ratio] 0 % /[address] [facility] Platelet mean volume (Bld) [Entitic vol] 10 fL 9.0 - 12.[address] [facility] Platelets (Bld) [#/Vol] 254 10*3/uL [facility] RBC (Bld) [#/Vol] 4.73 10*6/uL 3.90 - 5.2 0 m/uL [facility] WBC (Bld) [#/Vol] 9.39 10*3/uL [facility] Basophils (Bld) [#/Vol] 0.03 10*3/uL Normal <0.11 [facility] Comment on above: Order Comment: Speci men Type: BLOOD SPECIMENOrdering Facility: [facility] Address: [address] [place] [address] Performed By: #### 5 7021-8 ####[facility] LABCLIA [id number] [place] [address] [place] Basophils/100 WBC (Bld) 0.3 % Normal [facility] Comment on above: Order Comment: Speci men Type: BLOOD SPECIMENOrdering Facility: [facility] Address: [address] [place] [address] Performed By: #### 5 7021-8 ####[facility] LABCLIA [id number] [place] [address] [place] Differential cell count method Nom (Bld) Auto Normal [facility] Comment on above: Order Comment: Speci men Type: BLOOD SPECIMENOrdering Facility: [facility] Address: [address] [place] [address] Performed By: #### 5 7021-8 ####[facility] LABCLIA [id number] [place] [address] [place] Eosinophils (Bld) [#/Vol] 0.09 10*3/uL Normal <0.46 [facility] Comment on above: Order Comment: Speci men Type: BLOOD SPECIMENOrdering Facility: [facility] Address: [address] [place] [address] Performed By: #### 5 7021-8 ####[facility] LABCLIA [id number] [place] [address] [place] Eosinophils/100 WBC (Bld) 1.0 % Normal [facility] Comment on above: Order Comment: Speci men Type: BLOOD SPECIMENOrdering Facility: [facility] Address: [address] [place] [address] Performed By: #### 5 7021-8 ####[facility] LABCLIA [id number] [place] [address] [place] Erythrocyte distribution width (RBC) [Ratio] 14.0 % Normal 11.5-15.0 [facility] Comment on above: Order Comment: Speci men Type: BLOOD SPECIMENOrdering Facility: [facility] Address: [address] [place] [address] Performed By: #### 5 7021-8 ####[facility] LABCLIA [id number] [address] [place] Hematocrit (Bld) [Volume fraction] 44.4 % Normal 36.0-46.0 [facility] Comment on above: Order Comment: Speci men Type: BLOOD SPECIMENOrdering Facility: [facility] Address: [address] [place] [address] Performed By: #### 5 7021-8 ####[facility] LABCLIA [id number] [place] [address] [place] Hemoglobin (Bld) [Mass/Vol] 14.0 g/dL Normal 11.5-15.5 [facility] Comment on above: Order Comment: Speci men Type: BLOOD SPECIMENOrdering Facility: [facility] Address: [address] [place] [address] Performed By: #### 5 7021-8 ####[facility] LABCLIA [id number] [place] [address] [place] OF [place] Immature granulocytes (Bld) [#/Vol] 0.05 10*3/uL Normal <0.10 [facility] Comment on above: Order Comment: Speci men Type: BLOOD SPECIMENOrdering Facility: [facility] Address: [address] [place] [address] Performed By: #### 5 7021-8 ####[facility] LABCLIA [id number] [place] [address] [place] Immature granulocytes/100 WBC (Bld) 0.5 % Normal [facility] Comment on above: Order Comment: Speci men Type: BLOOD SPECIMENOrdering Facility: [facility] Address: [address] [place] [address] Performed By: #### 5 7021-8 ####[facility] LABIA [id number] [place] [address] [place] Lymphocytes (Bld) [#/Vol] 2.51 10*3/uL Normal 1.00-4.00 [facility] Comment on above: Order Comment: Speci men Type: BLOOD SPECIMENOrdering Facility: [facility] Address: [address] [place] [address] Performed By: #### 5 7021-8 ####[facility] LABCLIA [id number] [place] [address] [place] Lymphocytes/100 WBC (Bld) 26.7 % Normal [facility] Comment on above: Order Comment: Speci men Type: BLOOD SPECIMENOrdering Facility: [facility] Address: [address] [place] [address] Performed By: #### 5 7021-8 ####[facility] [id number] [address] [place] [facility] MCH (RBC) [Entitic mass] 29.6 pg Normal 26.0-34.0 [facility] Comment on above: Order Comment: Speci men Type: BLOOD SPECIMENOrdering Facility: [facility] Address: [address] [place] [address] Performed By: #### 5 7021-8 ####[facility] [id number] [place] [address] [place] MCHC (RBC) [Mass/Vol] 31.5 g/dL Normal 30.5-36.0 [facility] Comment on above: Order Comment: Speci men Type: BLOOD SPECIMENOrdering Facility: [facility] Address: [address] [place] [address] Performed By: #### 5 7021-8 ####[facility] [id number] [place] [address] [place] MCV (RBC) [Entitic vol] 93.9 fL Normal 80.0-100.0 [facility] Comment on above: Order Comment: Speci men Type: BLOOD SPECIMENOrdering Facility: [facility] Address: [address] [place] [address] Performed By: #### 5 7021-8 ####[facility] [id number] [place] [address] [place] Monocytes (Bld) [#/Vol] 0.61 10*3/uL Normal <0.87 [facility] Comment on above: Order Comment: Speci men Type: BLOOD SPECIMENOrdering Facility: [facility] Address: [address] [place] [address] Performed By: #### 5 7021-8 ####[facility] LABCLIA [id number] [address] [place] [address] [place] Monocytes/100 WBC (Bld) 6.5 % Normal [facility] Comment on above: Order Comment: Speci men Type: BLOOD SPECIMENOrdering Facility: [facility] Address: [address] [place] [address] Performed By: #### 5 7021-8 ####[facility] [place] LABCLIA [id number] [address] [place] [address] [place] Neutrophils (Bld) [#/Vol] 6.10 10*3/uL Normal 1.45-7.50 [facility] Comment on above: Order Comment: Speci men Type: BLOOD SPECIMENOrdering Facility: [facility] Address: [address] [place] [address] Performed By: #### 5 7021-8 ####[facility] LABCLIA [id number] [place] [id number] [place] Neutrophils/100 WBC (Bld) 65.0 % Normal [facility] Comment on above: Order Comment: Speci men Type: BLOOD SPECIMENOrdering Facility: [facility] Address: [address] [place] [address] Performed By: #### 5 7021-8 ####[facility] LABCLIA [id number] [place] [id number] [place] Nucleated RBC (Bld) [#/Vol] 10*3/uL Normal <0.01 [facility] Comment on above: Order Comment: Speci men Type: BLOOD SPECIMENOrdering Facility: [facility] Address: [address] [place] [address] Performed By: #### 5 7021-8 ####[facility] [place] LABCLIA [id number] [address] [place] [address] [place] Nucleated RBC/100 WBC (Bld) [Ratio] 0.0 /100 WBC Normal [facility] Comment on above: Order Comment: Speci men Type: BLOOD SPECIMENOrdering Facility: [facility] Address: [address] [place] [address] Performed By: #### 5 7021-8 ####[facility] LABIA [id number] [place] [address] [place] Platelet mean volume (Bld) [Entitic vol] 10.0 fL Normal 9.0-12.7 [facility] Comment on above: Order Comment: Speci men Type: BLOOD SPECIMENOrdering Facility: [facility] Address: [address] [place] [address] Performed By: #### 5 7021-8 ####[facility] LABIA [id number] [place] [address] [place] Platelets (Bld) [#/Vol] 254 10*3/uL Normal 150-400 [facility] Comment on above: Order Comment: Speci men Type: BLOOD SPECIMENOrdering Facility: [facility] Address: [address] [place] [address] Performed By: #### 5 7021-8 ####[facility] LABIA [id number] [place] [address] [place] RBC (Bld) [#/Vol] 4.73 10*6/uL Normal 3.90-5.20 [facility] Comment on above: Order Comment: Speci men Type: BLOOD SPECIMENOrdering Facility: [facility] Address: [address] [place] [address] Performed By: #### 5 7021-8 ####[facility] LABIA [id number] [place] [address] [place] WBC (Bld) [#/Vol] 9.39 10*3/uL Normal 3.70-11.00 [facility] Comment on above: Order Comment: Speci men Type: BLOOD SPECIMENOrdering Facility: [facility] Address: [address] [place] [id number] Performed By: #### 5 7021-8 ####[facility] LABCLIA [id number] [place] [id number] [place] CNOVon 10-11-2024 CNOV Normal [facility] metabolic 2000 panelon 10-11-2024 Albumin [Mass/Vol] 3.9 g/dL 3.9 - 4.9 g/dL [facility] ALP [Catalytic activity/Vol] 100 U/L 34 - 123 U/L [facility] ALT [Catalytic activity/Vol] 15 U/L 7 - 38 U/L [facility] Anion gap [Moles/Vol] 13 mmol/L 8 - 15 mmol/L [facility] AST [Catalytic activity/Vol] 13 U/L 13 - 35 U/L [facility] Bilirubin [Mass/Vol] 0.2 mg/dL 0.2 - 1 .3 mg/dL [facility] Calcium [Mass/Vol] 9.4 mg/dL 8.5 - 10. 2 mg/dL [facility] Chloride [Moles/Vol] 105 mmol/L 98 - 10 7 mmol/L [facility] CO2 [Moles/Vol] 22 mmol/L 22 - 30 mmol/L [facility] Creatinine [Mass/Vol] 0.62 mg/dL 0.58 - 0.96 mg/dL [facility] GFR/1.73 sq M.predicted among non-blacks MDRD (S/P/Bld) [Vol rate/Area] 111 mL/min/{1.73_m2} - PINF [facility] Comment on above: Estimated Glomerular Filtration Rate (eGFR) is calculated using the 2020 CKD-EPI creatinine equation. This equation utilizes serum creatinine, sex, and age as parameters. The creatinine assay has traceable calibration to isotope dilution-mass spectrometry. Refer to KDIGO guidelines for clinical interpretation. In patients with unstable renal function, e.g. those with acute kidney injury, the eGFR may not accurately reflect actual GFR. Glucose [Mass/Vol] 109 mg/dL High 74 - 99 mg/dL [facility] Comment on above: The [place] Diabete s Association (ADA) provides guidance for cutoff values for fasting glucose and random glucose. The ADA defines fasting as no caloric intake for at least 8 hours. Fasting plasma glucose results between 100 to 125 mg/dL indicate increased risk for diabetes (prediabetes). Fasting plasma glucose results greater than or equal to 126 mg/dL meet the criteria for diagnosis of diabetes. In the absence of unequivocal hyperglycemia, results should be confirmed by repeat testing. In a patient with classic symptoms of hyperglycemia or hyperglycemic crisis, random plasma glucose results greater than or equal to 200 mg/dL meet the criteria for diagnosis of diabetes. Reference: Standards of Medical Care in Diabetes 2016, [place] Diabetes Association. Diabetes Care. 2016.39(Suppl 1). Potassium [Moles/Vol] 4 mmol/L 3.7 - 5.1 mmol/L [facility] Protein [Mass/Vol] 7.2 g/dL 6.3 - 8.0 g/dL [facility] Sodium [Moles/Vol] 140 mmol/L 136 - 144 mmol/L [facility] Urea nitrogen [Mass/Vol] 10 mg/dL 7 - 21 mg/dL [facility] Albumin [Mass/Vol] 3.9 g/dL Normal 3.9-4.9 [facility] Comment on above: Order Comment: Speci men Type: BLOOD SPECIMENOrdering Facility: [facility] Address: [address] [place] [address] Performed By: #### 2 4323-8, 25930-6, 29067-0, 3015-3 ####[facility] [id number] [place] [address] [place] ALP [Catalytic activity/Vol] 100 U/L Normal 34-123 [facility] Comment on above: Order Comment: Speci men Type: BLOOD SPECIMENOrdering Facility: [facility] Address: [address] [place] [address] Performed By: #### 2 4323-8, 42397-9, 98517-9, 6-3 ####[facility] LABIA [id number] [place] [address] [place] ALT [Catalytic activity/Vol] 15 U/L Normal 7-38 [facility] Comment on above: Order Comment: Speci men Type: BLOOD SPECIMENOrdering Facility: [facility] Address: [address] [place] [address] Performed By: #### 2 4323-8, 47209-8, 88271-5, 6-3 ####[facility] LABCLIA [id number] [place] [address] [place] Anion gap [Moles/Vol] 13 mmol/L Normal 8-15 [facility] Comment on above: Order Comment: Speci men Type: BLOOD SPECIMENOrdering Facility: [facility] Address: [address] [place] [address] Performed By: #### 2 4323-8, 46920-6, 23781-3, 6-3 ####[facility] LABCLIA [id number] [place] [address] [place] AST [Catalytic activity/Vol] 13 U/L Normal 13-35 [facility] Comment on above: Order Comment: Speci men Type: BLOOD SPECIMENOrdering Facility: [facility] Address: [address] [place] [address] Performed By: #### 2 4323-8, 23755-1, 66555-9, 6-3 ####[facility] LABCLIA [id number] [place] [address] [place] Bilirubin [Mass/Vol] 0.2 mg/dL Normal 0.2-1.3 [facility] Comment on above: Order Comment: Speci men Type: BLOOD SPECIMENOrdering Facility: [facility] Address: [address] [place], [place] [address] Performed By: #### 2 4323-8, 36212-0, 27178-0, 6-3 ####[facility] LABCLIA [id number] [place] [id number] [place] Calcium [Mass/Vol] 9.4 mg/dL Normal 8.5-10.2 [facility] Comment on above: Order Comment: Speci men Type: BLOOD SPECIMENOrdering Facility: [facility] Address: [address] [place], [place] [address] Performed By: #### 2 4323-8, 38804-9, 75012-7, 6-3 ####[facility] LABCLIA [id number] [place] [id number] [place] Chloride [Moles/Vol] 105 mmol/L Normal 98-107 [facility] Comment on above: Order Comment: Speci men Type: BLOOD SPECIMENOrdering Facility: [facility] Address: [address] [place] [address] Performed By: #### 2 4323-8, 31729-4, 54912-2, 6-3 ####[facility] LABCLIA [id number] [place] [address] [place] CO2 [Moles/Vol] 22 mmol/L Normal 22-30 [facility] Comment on above: Order Comment: Speci men Type: BLOOD SPECIMENOrdering Facility: [facility] Address: [address] [place] [address] Performed By: #### 2 4323-8, 11601-2, 57536-1, 6-3 ####[facility] LABCLIA [id number] [place] [address] [place] Creatinine [Mass/Vol] 0.62 mg/dL Normal 0.58-0.96 [facility] Comment on above: Order Comment: Speci men Type: BLOOD SPECIMENOrdering Facility: [facility] Address: [address] [place], [place] [address] Performed By: #### 2 4323-8, 67359-5, 70069-6, 6-3 ####[facility] LABCLIA [id number] [place] [id number] [place] Creatinine and Glomerular filtration rate.predicted panel (S/P/Bld) 111 mL/min/1.73m??? Normal >=60 [facility] Comment on above: Order Comment: Speci men Type: BLOOD SPECIMENOrdering Facility: [facility] Address: [address] [place] [address] Result Comment: Jen mated Glomerular Filtration Rate (eGFR) is calculated using the 2020 CKD-EPI creatinine equation. This equation utilizes serum creatinine, sex, and age as parameters. The creatinine assay has traceable calibration to isotope dilution-mass spectrometry. Refer to KDIGO guidelines for clinical interpretation. In patients with unstable renal function, e.g. those with acute kidney injury, the eGFR may not accurately reflect actual GFR. Performed By: #### 2 4323-8, 17678-1, 35068-4, 3015-3 ####[facility] LABIA [id number] [place] [address] [place] Glucose [Mass/Vol] 109 mg/dL High 74-99 [facility] Comment on above: Order Comment: Rashad irwin Type: BLOOD SPECIMENOrdering Facility: [facility] Address: [address] [place] [address] Result Comment: The [place] Diabetes Association (ADA) provides guidance for cutoff values for fasting glucose and random glucose. The ADA defines fasting as no caloric intake for at least 8 hours. Fasting plasma glucose results between 100 to 125 mg/dL indicate increased risk for diabetes (prediabetes).Fasting plasma glucose results greater than or equal to 126 mg/dL meet the criteria for diagnosis of diabetes. In the absence of unequivocal hyperglycemia, results should be confirmed by repeat testing. In a patient with classic symptoms of hyperglycemia or hyperglycemic crisis, random plasma glucose results greater than or equal to 200 mg/dL meet the criteria for diagnosis of diabetes.Reference: Standards of Medical Care in Diabetes 2016, [place] Diabetes Association. Diabetes Care. 2016.39(Suppl 1). Performed By: #### 2 4323-8, 23598-3, 88392-7, 3 ####[facility] LABIA [id number] [place] [id number] [place] Potassium [Moles/Vol] 4.0 mmol/L Normal 3.7-5.1 [facility] Comment on above: Order Comment: Rashad irwin Type: BLOOD SPECIMENOrdering Facility: [facility] Address: [address] [place] [address] Performed By: #### 2 4323-8, 92822-3, 08205-0, 6-3 ####[facility] LABIA [id number] [address] [address] [place] Protein [Mass/Vol] 7.2 g/dL Normal 6.3-8.0 [facility] Comment on above: Order Comment: Speci men Type: BLOOD SPECIMENOrdering Facility: [facility] Address: [address] [place], [place] [address] Performed By: #### 2 4323-8, 15195-7, 29841-7, 6-3 ####[facility] LABIA [id number] [place] [id number] [place] Sodium [Moles/Vol] 140 mmol/L Normal 136-144 [facility] Comment on above: Order Comment: Speci men Type: BLOOD SPECIMENOrdering Facility: [facility] Address: [address] [place], [place] [address] Performed By: #### 2 4323-8, 14326-4, , 3015-3 ####[facility] LABIA [id number] [place] [id number] [place] Urea nitrogen [Mass/Vol] 10 mg/dL Normal 7-21 [facility] Comment on above: Order Comment: Speci men Type: BLOOD SPECIMENOrdering Facility: [facility] Address: [address] [place], [place] [address] Performed By: #### 2 4323-8, 49109-8, 03566-3, 6-3 ####[facility] LABIA [id number] [address] [address] [place] D dimer FEU PPP-mCncon 10-11 Fibrin D-dimer FEU (PPP) [Mass/Vol] 910 ng/mL FEU High <500 [facility] Comment on above: Order Comment: Speci men Type: BLOOD SPECIMENOrdering Facility: [facility] Address: [address] [place] [address] Result Comment: Noe en Plasma Aliquot Performed By: #### 4 8065-7 ####[facility] LABCLIA [id number] [place] [address] [place] D-DIMEROrdered By: Elizabeth orona on 10-11-2024 Fibrin D-dimer FEU (PPP) [Mass/Vol] [address] [facility] Comment on above: Frozen Plasma Aliquo t ECG COMPLETEon 10-11-2024 ECG COMPLETE Normal [facility] Fibrin D-dimer FEU (PPP) [Ma ss/Vol]Ordered By: Elizabeht Mcgill on 10-11-2024 Interpretation and review of laboratory results Abnormal [facility] 500 ng/mL FEU is the D Dimer cutoff to exclude DVT (deep vein thrombosis) and PE (pulmonary embolism) in patients with a low pre test probability. Supplemental Comment: In patients over 50 years with a low pre test probability for DVT and/or PE, an age adjusted D dimer cutoff can be calculated as [age x 10] ng/mL FEU. For example, a patient of 88 years would have an age adjusted D dimer cutoff of 880 ng/mL FEU. For patients with a suspected DVT, a D dimer level below 500 ng/mL FEU has a negative predictive value of >98.9%, a sensitivity of >96.9% and a specificity of >35.7%. For patients with a suspected PE, a D dimer level below 500 ng/mL FEU has a negative predictive value of >98.5%, and a sensitivity of >96.5% and a specificity of >38.8%. Reference: Enochivirgil M, et al. CONNIE 2014 311:1117 and Van Jaci N, et al. Odette Int Med 2016 165:253. [facility] Lipid 1996 panelon 5 Cholesterol [Mass/Vol] 243 mg/dL High NINF - 200 mg/dL [facility] Comment on above: <200 mg/dL, Desirabl e 200-239 mg/dL, Borderline high >239 mg/dL, High Cholesterol in HDL [Mass/Vol] 54 mg/dL 39 - PINF mg/dL [facility] Comment on above: 40-59 mg/dL, Accepta ble >59 mg/dL, High: Negative risk factor for coronary heart disease <40 mg/dL, Low: Positive risk factor for coronary heart disease Cholesterol in LDL [Mass/Vol] 154 mg/dL High NINF - 100 mg/dL [facility] Comment on above: <100 mg/dL, Optimal 100-129 mg/dL, Near optimal/above optimal 130-159 mg/dL, Borderline high 160-189 mg/dL, High >189 mg/dL, Very high Secondary prevention optimal LDL Cholesterol levels are recommended to be <70 mg/dL LDL cholesterol is calculated using the Hernández-NIH equation. Cholesterol in LDL/Cholesterol in HDL [Mass ratio] 2.85 {ratio} High NINF - 2.54 [facility] Comment on above: Reference: 1. National Cholesterol Education Program ATP III Guideline At-A-Glance Quick Desk Reference: National Heart, Lung, and Blood [place]. National Institutes of Health. 2001: NIH Publication No. 01-3305. 2. An International Atherosclerosis Society position paper: global recommendations for the management of dyslipidemia: executive summary, Atherosclerosis. 2014: 232(2):410-413. Cholesterol in VLDL [Mass/Vol] 37 mg/dL High NINF - 30 mg/dL [facility] Cholesterol non HDL [Mass/Vol] 189 mg/dL High NINF - 130 mg/dL [facility] Comment on above: <130 mg/dL, Optimal 130-159 mg/dL, Near optimal/above optimal 160-189 mg/dL, Borderline high 190-219 mg/dL, High >219 mg/dL, Very high Secondary prevention optimal non HDL Cholesterol levels are recommended to be <100 mg/dL Cholesterol.total/Ch olesterol in HDL [Mass ratio] 4.5 {ratio} NINF - 5.10 [facility] Fasting Time [address] [facility] Triglyceride [Mass/Vol] 194 mg/dL High NINF - 150 mg/dL [facility] Comment on above: <150 mg/dL, Normal 150-199 mg/dL, Borderline high 200-499 mg/dL, High >499 mg/dL, Very high Cholesterol [Mass/Vol] 243 mg/dL High <200 [facility] Comment on above: Order Comment: Speci men Type: BLOOD SPECIMENOrdering Facility: [facility] Address: [address] [place] [address] Result Comment: <200 mg/dL, Desirable 200-239 mg/dL, Borderline high>239 mg/dL, High Performed By: #### 2 4323-8, 89409-4, , 3 ####[facility] LABCLIA [id number] [facility] [id number], [place] [address] [place] Cholesterol in HDL [Mass/Vol] 54 mg/dL Normal >39 [facility] Comment on above: Order Comment: Speci men Type: BLOOD SPECIMENOrdering Facility: [facility] Address: [address] [place] [address] Result Comment: 40-5 9 mg/dL, Acceptable>59 mg/dL, High: Negative risk factor for coronary heart disease<40 mg/dL, Low: Positive risk factor for coronary heart disease Performed By: #### 2 4323-8, 36104-4, , 3015-07 ####[facility] LABCLIA [id number] [facility] [address] [address] [place] Cholesterol in LDL [Mass/Vol] 154 mg/dL High <100 [facility] Comment on above: Order Comment: Speci men Type: BLOOD SPECIMENOrdering Facility: [facility] Address: [address] [place] [address] Result Comment: <100 mg/dL, Optimal 100-129 mg/dL, Near optimal/above optimal 130-159 mg/dL, Borderline high 160-189 mg/dL, High>189 mg/dL, Very highSecondary prevention optimal LDL Cholesterol levels are recommended to be <70 mg/dLLDL cholesterol is calculated using the Hernández-NIH equation. Performed By: #### 2 4323-8, 96687-9, , 3015-07 ####[facility] LABCLIA [id number] [facility] [id number], [place] [address] [place] Cholesterol in LDL/Cholesterol in HDL [Mass ratio] 2.85 {ratio} High <2.54 [facility] Comment on above: Order Comment: Speci men Type: BLOOD SPECIMENOrdering Facility: [facility] Address: [address] [place] [address] Result Comment: Petey garcia:1. National Cholesterol Education Program ATP III Guideline At-A-Glance Quick Desk Reference: National Heart, Lung, and Blood [place]. National Institutes of Health. 2001: NIH Publication No. 01-3305.2. An International Atherosclerosis Society position paper: global recommendations for the management of dyslipidemia: executive summary, Atherosclerosis. 2014: 232(2):410-413. Performed By: #### 2 4323-8, 98699-9, 35309-3, 6-3 ####[facility] LABCLIA [id number] [place] [address] [place] Cholesterol in VLDL [Mass/Vol] 37 mg/dL High <30 [facility] Comment on above: Order Comment: Speci men Type: BLOOD SPECIMENOrdering Facility: [facility] Address: [address] [place] [address] Performed By: #### 2 4323-8, 98581-6, 02548-0, 6-3 ####[facility] LABCLIA [id number] [place] [address] [place] Cholesterol non HDL [Mass/Vol] 189 mg/dL High <130 [facility] Comment on above: Order Comment: Surekhai men Type: BLOOD SPECIMENOrdering Facility: [facility] Address: [address] [place] [address] Result Comment: <130 mg/dL, Optimal 130-159 mg/dL, Near optimal/above optimal 160-189 mg/dL, Borderline high 190-219 mg/dL, High>219 mg/dL, Very highSecondary prevention optimal non HDL Cholesterol levels are recommended to be <100 mg/dL Performed By: #### 2 4323-8, 26159-8, 70292-1, 3016-3 ####[facility] LABCLIA [id number] [address] [address] [place] Cholesterol.total/Ch olesterol in HDL [Mass ratio] 4.50 {ratio} Normal <5.10 [facility] Comment on above: Order Comment: Speci men Type: BLOOD SPECIMENOrdering Facility: [facility] Address: [address] [place] [address] Performed By: #### 2 4323-8, 17055-0, 71157-8, 6-3 ####[facility] LABCLIA [id number] [place] [id number] [place] FASTING TIME 12 hrs Normal [facility] Comment on above: Order Comment: Speci men Type: BLOOD SPECIMENOrdering Facility: [facility] Address: [address] [place] [address] Performed By: #### 2 4323-8, 55391-7, 33447-8, 6-3 ####[facility] LABIA [id number] [place] [id number] [place] Triglyceride [Mass/Vol] 194 mg/dL High <150 [facility] Comment on above: Order Comment: Speci men Type: BLOOD SPECIMENOrdering Facility: [facility] Address: [address] [place] [address] Result Comment: <150 mg/dL, Normal 150-199 mg/dL, Borderline high 200-499 mg/dL, High>499 mg/dL, Very high Performed By: #### 2 4323-8, 75596-3, 71788-3, 6-3 ####[facility] LABIA [id number] [address] [address] [place] MAGNESIUMon 10-11-2024 Magnesium [Mass/Vol] 2.1 mg/dL 1.7 - 2 .3 mg/dL [facility] Magnesium SerPl-mCncon 10-11 Magnesium [Mass/Vol] 2.1 mg/dL Normal 1.7-2.3 [facility] Comment on above: Order Comment: Speci men Type: BLOOD SPECIMENOrdering Facility: [facility] Address: [address] [place] [address] Performed By: #### 2 4323-8, 50850-6, 96170-2, 3016-3 ####[facility] LABCLIA [id number] [place] [address] [place] Magnesium [Mass/Vol]on 10-11 Interpretation and review of laboratory results Normal [facility] No Panel Informationon 10-11 Interpretation and review of laboratory results Abnormal [facility] THYROID STIMULATING HORMONEo n 10-11-2024 TSH Qn 3.31 m[IU]/L [facility] Comment on above: If the patient is pr egnant, TSH reference range varies by gestational period: First Trimester (weeks 9-12): 0.180-2.990 mIU/L Second Trimester: 0.110-3.980 mIU/L Third Trimester: 0.480-4.710 mIU/L Gualberto Stringer et al. A Practical Approach for the Verifications and Determination of Site- and Trimester-Specific Reference Intervals for Thyroid Function tests in . Thyroid, 2019:29:3:412-420. Riccardo E, et al. 2017 Guidelines of the [place] Thyroid Association for the Diagnosis and Management of Thyroid Disease during and the . Thyroid, 2017:27:3:315-389. TSH Qnon 10-11-2024 Interpretation and review of laboratory results Normal [facility] TSH SerPl-aCncon 10-11-2024 TSH Qn 3.310 m[IU]/L Normal 0.270-4.200 [facility] Comment on above: Order Comment: Speci men Type: BLOOD SPECIMENOrdering Facility: [facility] Address: [address] [place] [address] Result Comment: If t he patient is , TSH reference range varies by gestational period:First Trimester (weeks 9-12): 0.180-2.990 mIU/LSecond Trimester: 0.110-3.980 mIU/LThird Trimester: 0.480-4.710 mIU/LDleighann Stringer et al. A Practical Approach for the Verifications and Determination of Site- and Trimester-Specific Reference Intervals for Thyroid Function tests in . Thyroid, 2019:29:3:412-420. Riccardo E, et al. 2017 Guidelines of the [place] Thyroid Association for the Diagnosis and Management of Thyroid Disease during and the . Thyroid, 2017:27:3:315-389. Performed By: #### 2 4323-8, 42996-1, 26991-4, 3016-3 ####[facility] LABCLIA [id number] [place] [address] [place] XR CHEST 2V FRONTAL/LATon XR CHEST 2V FRONTAL/LAT Normal [facility] XR Chest PA and Lateralon IMPRESSION: Prominence of the pulmonary markings Quality Improvement Consultant: SARWAT Transcribe Date/Time: Oct 11 2024 12:31P Dictated by : DEILO CALDWELL MD This examination was interpreted and the report reviewed and electronically signed by: DELIO CALDWELL MD on Oct 11 2024 12:32PM [facility] DIVISION OF RADIOLOGY * * *Final Report* * * DATE OF EXAM: Oct 11 2024 12:21PM WOX 5291 - XR CHEST 2V FRONTAL/LAT / PROCEDURE REASON: multiple diagnoses * * * * Physician Interpretation * * * * EXAMINATION: CHEST RADIOGRAPH (2 VIEW FRONTAL & LATERAL) CLINICAL HISTORY: Chest pain, unspecified type Dyspnea, unspecified type MQ: XC2_6 EXAM DATE/TIME: 10/11/2024 12:21 PM COMPARISON: Chest x-ray on 07/13/2024 RESULT: Lines, tubes, and devices: None. Lungs and pleura: There is prominence of the pulmonary markings. No consolidation. No lung mass. No pleural effusion. No pneumothorax. Left-sided large pericardial fat pad is noted. Cardiomediastinal silhouette: Normal cardiomediastinal silhouette. Bones and soft tissues: Unremarkable. DIVISION OF RADIOLOGY Provider, Dulce Maria Carissa Viramontes - 10/11/2024 * * *Final Report* * * DATE OF EXAM: Oct 11 2024 12:21PM WOX 5291 - XR CHEST 2V FRONTAL/LAT / PROCEDURE REASON: multiple diagnoses * * * * Physician Interpretation * * * * EXAMINATION: CHEST RADIOGRAPH (2 VIEW FRONTAL & LATERAL) CLINICAL HISTORY: Chest pain, unspecified type Dyspnea, unspecified type MQ: XC2_6 EXAM DATE/TIME: 10/11/2024 12:21 PM COMPARISON: Chest x-ray on 07/13/2024 RESULT: Lines, tubes, and devices: None. Lungs and pleura: There is prominence of the pulmonary markings. No consolidation. No lung mass. No pleural effusion. No pneumothorax. Left-sided large pericardial fat pad is noted. Cardiomediastinal silhouette: Normal cardiomediastinal silhouette. Bones and soft tissues: Unremarkable. IMPRESSION IMPRESSION: Prominence of the pulmonary markings Quality Improvement Consultant: PSCB Transcribe Date/Time: Oct 11 2024 12:31P Dictated by : DELIO CALDWELL MD This examination was interpreted and the report reviewed and electronically signed by: DELIO CALDWELL MD on Oct 11 2024 12:32PM EST [facility] Radiology Study observation (narrative) [facility] XR Chest PA and LateralOrder ed By: Ccf Provider on 10-11-2024 [facility] CNPTOUTREACHon 10-10-2024 CNPTOUTREACH Normal [facility] HbA1c (Bld)on 07-31-2024 Average glucose Estimated from glycated hemoglobin (Bld) [Mass/Vol] 111 mg/dL Normal [facility] Comment on above: Order Comment: Rashad irwin Type: BLOOD SPECIMENOrdering Facility: [facility] Address: [address] [place] [address] Result Comment: eAG: (Estimated average glucose) is a calculated value from HgbA1c and is appeals representative of the average blood glucose level in the last 2-3 month period. Performed By: #### 5 5454-3 ####[facility] LABCLIA [id number] [place] [address] [place] HbA1c (Bld) [Mass fraction] 5.5 % Normal 4.3-5.6 [facility] Comment on above: Order Comment: Rashad irwin Type: BLOOD SPECIMENOrdering Facility: [facility] Address: [address] [place] [address] Result Comment: [place] Diabetes Association guidelines indicate that patients with HgbA1c in the range 5.7-6.4% are at increased risk for development of diabetes, and intervention by lifestyle modification may be beneficial. HgbA1c greater or equal to 6.5% is considered diagnostic of diabetes. Performed By: #### 5 5454-3 ####[facility] LABCLIA [id number] [address] [address] [place] TSH SerPl-aCncon 07-31-2024 TSH Qn 2.850 m[IU]/L Normal 0.270-4.200 [facility] Comment on above: Order Comment: Speci men Type: BLOOD SPECIMENOrdering Facility: [facility] Address: [address] [place] [address] Result Comment: If t he patient is , TSH reference range varies by gestational period:First Trimester (weeks 9-12): 0.180-2.990 mIU/LSecond Trimester: 0.110-3.980 mIU/LThird Trimester: 0.480-4.710 mIU/Isidro Stringer et al. A Practical Approach for the Verifications and Determination of Site- and Trimester-Specific Reference Intervals for Thyroid Function tests in . Thyroid, 2019:29:3:412-420. Riccardo E, et al. 2017 Guidelines of the [place] Thyroid Association for the Diagnosis and Management of Thyroid Disease during and the . Thyroid, 2017:27:3:315-389. Performed By: #### 3 016-3 ####[facility] LABCLIA [id number] [address] [address] [place] CNOVon 07-27-2024 CNOV Normal [facility] CNOVon 07-13-2024 CNOV Normal [facility] INFLUENZA A&B MOLECULAR (POC )on 07-13-2024 Flu A (POCT) Negative Negative [facility] Flu B (POCT) Negative Negative [facility] Procedural Control Valid [facility] Location: [facility], [place], [place], [id number] [place] [address] [facility] XR CHEST 2V FRONTAL/LATon XR CHEST 2V FRONTAL/LAT Normal [facility] XR Chest PA and Lateralon IMPRESSION: No acute radiographic abnormality. Quality Improvement Consultant: SARWAT Transcribe Date/Time: Jul 13 2024 4:42P Dictated by : DELIO CALDWELL MD This examination was interpreted and the report reviewed and electronically signed by: DELIO CALDWELL MD on Jul 13 2024 4:43PM [facility] DIVISION OF RADIOLOGY * * *Final Report* * * DATE OF EXAM: Jul 13 2024 4:36PM WOX 5291 - XR CHEST 2V FRONTAL/LAT / PROCEDURE REASON: Acute cough * * * * Physician Interpretation * * * * EXAMINATION: CHEST RADIOGRAPH (2 VIEW FRONTAL & LATERAL) CLINICAL HISTORY: Acute cough MQ: XC2_6 EXAM DATE/TIME: 07/13/2024 4:36 PM COMPARISON: Chest x-ray on 02/04/2024 RESULT: Lines, tubes, and devices: None. Lungs and pleura: No consolidation. No lung mass. No pleural effusion. No pneumothorax. Cardiomediastinal silhouette: Stable cardiomediastinal silhouette. Bones and soft tissues: There are degenerative changes in the spine. DIVISION OF RADIOLOGY Provider, [facility] - 07/13/2024 * * *Final Report* * * DATE OF EXAM: Jul 13 2024 4:36PM WOX 5291 - XR CHEST 2V FRONTAL/LAT / PROCEDURE REASON: Acute cough * * * * Physician Interpretation * * * * EXAMINATION: CHEST RADIOGRAPH (2 VIEW FRONTAL & LATERAL) CLINICAL HISTORY: Acute cough MQ: XC2_6 EXAM DATE/TIME: 07/13/2024 4:36 PM COMPARISON: Chest x-ray on 02/04/2024 RESULT: Lines, tubes, and devices: None. Lungs and pleura: No consolidation. No lung mass. No pleural effusion. No pneumothorax. Cardiomediastinal silhouette: Stable cardiomediastinal silhouette. Bones and soft tissues: There are degenerative changes in the spine. IMPRESSION IMPRESSION: No acute radiographic abnormality. Quality Improvement Consultant: [facility] Transcribe Date/Time: Jul 13 2024 4:42P Dictated by : DELIO CALDWELL MD This examination was interpreted and the report reviewed and electronically signed by: DELIO CALDWELL MD on Jul 13 2024 4:43PM EST [facility] Radiology Study observation (narrative) [facility] XR Chest PA and LateralOrder ed By: Ccf Provider on 07-13-2024 [facility] CNOVon 06-30-2024 CNOV Normal [facility] CNPNon 06-19-2024 CNPN Normal [facility] CNOVon 06-16-2024 CNOV Normal [facility] NITRIC OXIDE, EXHALEDon - Viktoriya Woodward RPF T 06/16/2024 1:12 PM RESPIRATORY THERAPY ORAL EXHALED NITRIC OXIDE SERVICE DATE: 06/16/2024 SERVICE TIME: 1:12 PM Oral Exhaled Nitric Oxide measurement: 5.0 (ppb) Normal: Adult <25 ppb, pediatric (<12 years) <20 ppb High Normal / Increased: Adult 25-50 ppb, pediatric (<12 years) 20-35 ppb Moderately raised exhaled Nitric Oxide may indicate underlying inflammation, but note that: Cold and influenza can raise exhaled Nitric Oxide and some patients have higher baseline exhaled Nitric Oxide levels than others. High: Adult >50 ppb, pediatric (<12 years) >35 ppb Indicative of ongoing eosinophilic inflammation. Symptomatic patient likely to respond to steroids. Possible causes (if already on steroids): Poor compliance, recent allergen exposure, steroid dose inadequate, and steroid resistance. Note that not all patients with high exhaled nitric oxide levels display symptoms. Oral Exhaled Nitric Oxide measurement (Previous Encounters) Test Date Oral Exhaled Nitric Oxide (ppb) 06/16/2024 5.0 NAME: TED Cotter PATIENT NAME: Darren Reinoso DATE: June 16, 2024 TIME: 1:[address] [facility] NITRIC OXIDE, EXHALEDOrdered By: Viktoriya Woodward on 06-16-2024 [facility] SPIROMETRY WITH DILATOR IF O BSTRUCTEDon 06-16-2024 FEF25% PRE (L/S) 2.90 [facility] YAS58-76% LLN (L/S) 1.60 L/S [facility] HGQ20-52% PRE (L/S) 1.75 L/S [place] [facility] ALA63-97% PREDICTED (L/S) 2.77 L/S [facility] FEF75% LLN (L/S) 0.43 L/S [facility] FEF75% PRE (L/S0 0.81 L/S [facility] FEF75% PREDICTED (L/S) 0.95 L/S [facility] FEF75% ULN (L/S) 1.92 L/S [facility] FET PRE (S) 6.[address] [facility] FEV1 LLN (L) 1.[address] [facility] FEV1 PRE (L) 1.[address] [facility] FEV1 PREDICTED (L) 2.52 L [facility] FEV1 ULN (L) 3.[address] [facility] FEV1/FVC LLN (%) 71 % [facility] FEV1/FVC PRE (%) 77 % [facility] FEV1/FVC PREDICTED (%) 82 % [facility] FVC LLN (L) 2.[address] [facility] FVC PRE (L) 2.[address] [facility] FVC PREDICTED (L) 3.04 L [facility] FVC ULN (L) 3.[address] [facility] PEF LLN (L/S) 4.93 L/S [facility] PEF PRE (L/S) 4.92 L/S 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 No contraindications or sensitivities were noted. Meds taken: no inhaled respiratory medications taken before testing. Current ATS/ERS acceptability and repeatability standards for spirometry met. Start of test and EOFE criteria met. IMPRESSION: Spirometry indicates no large airways obstruction. Minimal small airways obstruction. Electronically Signed On 06-16-2024 16:43:30 EST by Elle Boone MD ID: [id number] Name: DARREN REINOSO Race: White Ht: 61.97 in Wt: 314.00 lbs Age: 44 Gender: Female : 1980 Dx: Shortness of breath Smoking Hx: Non-smoker Doctor: ELLE BOONE Test Date: 06/16/2024 Site: Tech: Viktoriya Woodward PRE-BRONCH POST-BRONCH Pre LLN Pred ULN %Pred Post %Pred %Chg SPIROMETRY FVC (L) 2.56 2.29 3.04 3.82 84 FEV1 (L) 1.98 1.88 2.52 3.13 78 FEV1/FVC 0.77 0.71 0.82 0.91 94 PEF L/s (L/sec) 4.92 4.93 6.53 8.14 75 FEF50 (L/sec) 1.81 1.89 3.50 5.11 51 FIF50 (L/sec) 3.55 FEF50/FIF50 0.51 90-100 FIVC (L) 2.44 WJB94-28 (L/sec) 1.75 1.60 2.77 4.22 63 Time (sec) 6.32 FET PEF (sec) 0.09 MAYITO (L) 0.06 Vol Extrap % (%) 2 Comments: Medications and Allergies were reviewed for possible drug interactions per policy. No contraindications or sensitivities were noted. Meds taken: no inhaled respiratory medications taken before testing. Current ATS/ERS acceptability and repeatability standards for spirometry met. Start of test and EOFE criteria met. PULMONARY FUNCTION LAB [facility] CNOVon 04-28-2024 CNOV Normal [facility] HEMOGLOBIN A1C (POC)on 04-28 HbA1c (Bld) [Mass fraction] 6.0 % Abnormal 4.3 - 5.6 % [facility] Comment on above: Location:[address], [place], [address] Point of care (POC) Hemoglobin A1c (HGBA1C) testing is intended to assess glucose control and provide a management tool for patients known to have diabetes and their healthcare providers. Target HGBA1C levels may depend on specific clinical circumstances. POC HGBA1C is not intended for use as a diagnostic or screening test; laboratory-based testing should be used for diagnostic purposes. The following information is supplemental and may not be applicable to specific diabetes management situations: The POC device memorial marker designer provides a normal range of 4.2% to 6.5% for the HGBA1C POC test. However, the [place] Diabetes Association guidelines indicate that patients with HGBA1C in the range of 5.7% to 6.4% are at increased risk for development of diabetes and that intervention by lifestyle modification may be beneficial. A HGBA1C level greater than or equal to 6.5% is considered diagnostic of diabetes, pending confirmatory testing. Use of HGBA1C testing to evaluate glucose control may not be appropriate for patients with hemoglobin variants or other conditions (e.g. anemia) that alter red blood cell lifespan. Interpretation and review of laboratory results Abnormal [facility] CNPNon 04-05-2024 CNPN Normal [facility] CNOVon 04-02-2024 CNOV Normal [facility] Bacteria Wnd Culton 04-01-20 24 Bacteria identified Cx Nom (Wound) Abnormal [facility] Comment on above: Performed By: #### 6 462-6 ####[facility] LABCLIA [id number] [address] [place] CNOVon 04-01-2024 CNOV Normal [facility] CBC panel Auto (Bld)on 03-31 Erythrocyte distribution width (RBC) [Ratio] 14.8 % Normal 11.5-15.0 [facility] Comment on above: Order Comment: Speci men Type: BLOOD SPECIMENOrdering Facility: [facility] Address: Pending sale to [facility] [place] [address] Performed By: #### 5 8410-2 ####[facility] LABCLIA [id number] [address] [place] Hematocrit (Bld) [Volume fraction] 44.4 % Normal 36.0-46.0 [facility] Comment on above: Order Comment: Speci men Type: BLOOD SPECIMENOrdering Facility: [facility] Address: Pending sale to [facility] [place] [address] Performed By: #### 5 8410-2 ####[facility] LABCLIA [id number] [address] [place] Hemoglobin (Bld) [Mass/Vol] 13.7 g/dL Normal 11.5-15.5 [facility] Comment on above: Order Comment: Speci men Type: BLOOD SPECIMENOrdering Facility: [facility] Address: Pending sale to [facility] [place] [address] Performed By: #### 5 8410-2 ####[facility] LABIA [id number] [address] MCH (RBC) [Entitic mass] 29.5 pg Normal 26.0-34.0 [facility] Comment on above: Order Comment: Speci men Type: BLOOD SPECIMENOrdering Facility: [facility] Address: Pending sale to [facility] [place] [address] Performed By: #### 5 8410-2 ####[facility] LABCLIA [id number] [address] [place] MCHC (RBC) [Mass/Vol] 30.9 g/dL Normal 30.5-36.0 [facility] Comment on above: Order Comment: Speci men Type: BLOOD SPECIMENOrdering Facility: [facility] Address: Pending sale to [facility] [place] [address] Performed By: #### 5 8410-2 ####[facility] LABIA [id number] [address] [place] MCV (RBC) [Entitic vol] 95.7 fL Normal 80.0-100.0 [facility] Comment on above: Order Comment: Speci men Type: BLOOD SPECIMENOrdering Facility: [facility] Address: Pending sale to [facility] [place] [address] Performed By: #### 5 8410-2 ####[facility] LABCLIA [id number] [address] [place] Nucleated RBC (Bld) [#/Vol] 10*3/uL Normal <0.01 [facility] Comment on above: Order Comment: Speci men Type: BLOOD SPECIMENOrdering Facility: [facility] Address: Pending sale to [facility] [place] [address] Performed By: #### 5 8410-2 ####[facility] LABCLIA [id number] [place] [address] [place] Platelet mean volume (Bld) [Entitic vol] 9.8 fL Normal 9.0-12.7 [facility] Comment on above: Order Comment: Speci men Type: BLOOD SPECIMENOrdering Facility: [facility] Address: [address] [place] [address] [place] [address] Performed By: #### 5 8410-2 ####[facility] LABIA [id number] [place] [address] [place] Platelets (Bld) [#/Vol] 252 10*3/uL Normal 150-400 [facility] Comment on above: Order Comment: Speci men Type: BLOOD SPECIMENOrdering Facility: [facility] Address: [address] [place] [address] [place] [address] Performed By: #### 5 8410-2 ####[facility] LABIA [id number] [place] [address] [place] RBC (Bld) [#/Vol] 4.64 10*6/uL Normal 3.90-5.20 [facility] Comment on above: Order Comment: Speci men Type: BLOOD SPECIMENOrdering Facility: [facility] Address: [address] [place], [place] [address] [address] Performed By: #### 5 8410-2 ####[facility] LABIA [id number] [place] [address] [place] WBC (Bld) [#/Vol] 11.81 10*3/uL High 3.70-11.00 [facility] Comment on above: Order Comment: Speci men Type: BLOOD SPECIMENOrdering Facility: [facility] Address: [address] [place], [place] [address], [place] [address] Performed By: #### 5 8410-2 ####[facility] LABCLIA [id number] [place] [address] [place] CNOVon 03-31-2024 CNOV Normal [facility] Comprehensive metabolic 2000 panelon 03-31-2024 Albumin [Mass/Vol] 4.1 g/dL Normal 3.9-4.9 [facility] Comment on above: Order Comment: Speci men Type: BLOOD SPECIMENOrdering Facility: [facility] Address: [address] [place] [address] Performed By: #### 2 4323-8 ####[facility] LABCLIA [id number] [place] [address] [place] ALP [Catalytic activity/Vol] 108 U/L Normal 34-123 [facility] Comment on above: Order Comment: Speci men Type: BLOOD SPECIMENOrdering Facility: [facility] Address: Pending sale to [facility] [place] [address] Performed By: #### 2 4323-8 ####[facility] LABCLIA [id number] [place] [address] [place] ALT [Catalytic activity/Vol] 17 U/L Normal 7-38 [facility] Comment on above: Order Comment: Speci men Type: BLOOD SPECIMENOrdering Facility: [facility] Address: Pending sale to [facility] [place] [address] Performed By: #### 2 4323-8 ####[facility] LABCLIA [id number] [place] [id number] [place] Anion gap [Moles/Vol] 14 mmol/L Normal 8-15 [facility] Comment on above: Order Comment: Speci men Type: BLOOD SPECIMENOrdering Facility: [facility] Address: Pending sale to [facility] [place] [address] Performed By: #### 2 4323-8 ####[facility] LABCLIA [id number] [place] [address] [place] AST [Catalytic activity/Vol] 15 U/L Normal 13-35 [facility] Comment on above: Order Comment: Speci men Type: BLOOD SPECIMENOrdering Facility: [facility] Address: Pending sale to [facility] [place] [address] Performed By: #### 2 4323-8 ####[facility] LABCLIA [id number] [place] [address] [place] Bilirubin [Mass/Vol] mg/dL Low 0.2-1.3 [facility] Comment on above: Order Comment: Speci men Type: BLOOD SPECIMENOrdering Facility: [facility] Address: [address] [place] [address] Performed By: #### 2 4323-8 ####[facility] LABCLIA [id number] [place] [address] [place] Calcium [Mass/Vol] 9.4 mg/dL Normal 8.5-10.2 [facility] Comment on above: Order Comment: Speci men Type: BLOOD SPECIMENOrdering Facility: [facility] Address: Pending sale to [facility] [place] [address] Performed By: #### 2 4323-8 ####[facility] LABCLIA [id number] [place] [address] [place] Chloride [Moles/Vol] 103 mmol/L Normal 98-107 [facility] Comment on above: Order Comment: Speci men Type: BLOOD SPECIMENOrdering Facility: [facility] Address: Pending sale to [facility] [place] [address] Performed By: #### 2 4323-8 ####[facility] LABCLIA [id number] [place] [address] [place] CO2 [Moles/Vol] 23 mmol/L Normal 22-30 [facility] Comment on above: Order Comment: Speci men Type: BLOOD SPECIMENOrdering Facility: [facility] Address: Pending sale to [facility] [place] [address] Performed By: #### 2 4323-8 ####[facility] [id number] [address] Creatinine [Mass/Vol] 0.59 mg/dL Normal 0.58-0.96 [facility] Comment on above: Order Comment: Speci men Type: BLOOD SPECIMENOrdering Facility: [facility] Address: [address] [place] [address] Performed By: #### 2 4323-8 ####[facility] [id number] [address] Creatinine and Glomerular filtration rate.predicted panel (S/P/Bld) 113 mL/min/1.73m??? Normal >=60 [facility] Comment on above: Order Comment: Surekhai alida Type: BLOOD SPECIMENOrdering Facility: [facility] Address: [address] [place] [address] Result Comment: Jen mated Glomerular Filtration Rate (eGFR) is calculated using the 2020 CKD-EPI creatinine equation. This equation utilizes serum creatinine, sex, and age as parameters. The creatinine assay has traceable calibration to isotope dilution-mass spectrometry. Refer to KDIGO guidelines for clinical interpretation. In patients with unstable renal function, e.g. those with acute kidney injury, the eGFR may not accurately reflect actual GFR. Performed By: #### 2 4323-8 ####[facility] LABIA [id number] [address] [place] Glucose [Mass/Vol] 84 mg/dL Normal 74-99 [facility] Comment on above: Order Comment: Surekhai alida Type: BLOOD SPECIMENOrdering Facility: [facility] Address: [address] [place] [address] Result Comment: The [place] Diabetes Association (ADA) provides guidance for cutoff values for fasting glucose and random glucose. The ADA defines fasting as no caloric intake for at least 8 hours. Fasting plasma glucose results between 100 to 125 mg/dL indicate increased risk for diabetes (prediabetes).Fasting plasma glucose results greater than or equal to 126 mg/dL meet the criteria for diagnosis of diabetes. In the absence of unequivocal hyperglycemia, results should be confirmed by repeat testing. In a patient with classic symptoms of hyperglycemia or hyperglycemic crisis, random plasma glucose results greater than or equal to 200 mg/dL meet the criteria for diagnosis of diabetes.Reference: Standards of Medical Care in Diabetes 2016, [place] [employer]. Diabetes Care. 2016.39(Suppl 1). Performed By: #### 2 4323-8 ####[facility] LABCLIA [id number] [address] [address] [place] Potassium [Moles/Vol] 3.9 mmol/L Normal 3.7-5.1 [facility] Comment on above: Order Comment: Rashad irwin Type: BLOOD SPECIMENOrdering Facility: [facility] Address: [address] [place], [place] [address] [address] Performed By: #### 2 4323-8 ####[facility] [id number] [place] [address] [place] Protein [Mass/Vol] 7.3 g/dL Normal 6.3-8.0 [facility] Comment on above: Order Comment: Rashad irwin Type: BLOOD SPECIMENOrdering Facility: [facility] Address: [address] [place] [address] Performed By: #### 2 4323-8 ####[facility] LABIA [id number] [place] [id number] [place] Sodium [Moles/Vol] 140 mmol/L Normal 136-144 [facility] Comment on above: Order Comment: Rashad irwin Type: BLOOD SPECIMENOrdering Facility: [facility] Address: [address] [place] [address] [place] [address] Performed By: #### 2 4323-8 ####[facility] LABIA [id number] [place] [id number] [place] Urea nitrogen [Mass/Vol] 9 mg/dL Normal 7-21 [facility] Comment on above: Order Comment: Speci men Type: BLOOD SPECIMENOrdering Facility: [facility] Address: [facility] [place] [address] Performed By: #### 2 4323-8 ####[facility] LABCLIA [id number] [place] [address] [place] CNOVon 03-17-2024 CNOV Normal [facility] Fungus Spec Culton 4 Fungus identified Cx Nom (Unsp spec) CULTURE, FUNGAL: No Fungus isolated after 28 days Normal [facility] Comment on above: Performed By: #### 5 80-1 ####[facility] LABIA [id number] [place] [address] [place] (1,3)-B-G-BBVAUQhj 4 (1,3) B-D GLUCAN <31 Normal <60 [facility] Comment on above: Order Comment: Speci men Type: BLOOD SPECIMENOrdering Facility: [facility] Address: Pending sale to [facility] [place] [address] Performed By: #### B DGLUC ####[facility] LABIA [id number] [place] [address] [place] (1,3) B-D GLUCAN QUAL Negative Normal Negative [facility] Comment on above: Order Comment: Speci men Type: BLOOD SPECIMENOrdering Facility: [facility] Address: Pending sale to [facility] [place] [address] Performed By: #### B DGLUC ####[facility] LABIA [id number] [place] [address] [place] ASPERGILLUS GALACTOMANNAN SE RUMon 03-03-2024 ASPERGILLUS GALACTOMANNAN 0.08 Index Value Normal <=0.49 [facility] Comment on above: Order Comment: Speci men Type: BLOOD SPECIMENOrdering Facility: [facility] Address: Pending sale to [facility] [place] [address] Performed By: #### A SGALS ####[facility] LABCLIA [id number] [address] [place] Galactomannan Ag IA Ql Negative Normal Negative [facility] Comment on above: Order Comment: Speci alida Type: BLOOD SPECIMENOrdering Facility: [facility] Address: Pending sale to [facility] [place] [address] Result Comment: Aspe rgillus Galactomannan antigen assay is used as an aid in diagnosis of invasive aspergillosis in immunocompromised individuals especially in post-stem cell transplant, hematological malignancies on chemotherapy, and HIV-positive patients with very low CD4 T-cell counts. The test may also be used in disease prognostication and for monitoring response to anti-fungal therapy. False positive and false negative results are not uncommon. Clinical and radiological correlation is required. Performed By: #### A SGALS ####[facility] LABCLIA [id number] [address] [place] CBC panel Auto (Bld)on 03-03 Erythrocyte distribution width (RBC) [Ratio] 14.5 % Normal 11.5-15.0 [facility] Comment on above: Order Comment: Rashad irwin Type: BLOOD SPECIMENOrdering Facility: [facility] Address: Pending sale to [facility] [place] [address] Performed By: #### 5 8410-2 ####[facility] LABCLIA [id number] [address] [place] Hematocrit (Bld) [Volume fraction] 47.4 % High 36.0-46.0 [facility] Comment on above: Order Comment: Speci alida Type: BLOOD SPECIMENOrdering Facility: [facility] Address: Pending sale to [facility] [place] [address] Performed By: #### 5 8410-2 ####[facility] LABCLIA [id number] [address] [place] Hemoglobin (Bld) [Mass/Vol] 14.5 g/dL Normal 11.5-15.5 [facility] Comment on above: Order Comment: Speci men Type: BLOOD SPECIMENOrdering Facility: [facility] Address: Pending sale to [facility] [place] [address] Performed By: #### 5 8410-2 ####[facility] LABIA [id number] [address] MCH (RBC) [Entitic mass] 29.3 pg Normal 26.0-34.0 [facility] Comment on above: Order Comment: Speci men Type: BLOOD SPECIMENOrdering Facility: [facility] Address: Pending sale to [facility] [place] [address] Performed By: #### 5 8410-2 ####[facility] LABIA [id number] [address] [place] MCHC (RBC) [Mass/Vol] 30.6 g/dL Normal 30.5-36.0 [facility] Comment on above: Order Comment: Speci men Type: BLOOD SPECIMENOrdering Facility: [facility] Address: Pending sale to [facility] [place] [address] Performed By: #### 5 8410-2 ####[facility] LABIA [id number] [address] [place] MCV (RBC) [Entitic vol] 95.8 fL Normal 80.0-100.0 [facility] Comment on above: Order Comment: Speci men Type: BLOOD SPECIMENOrdering Facility: [facility] Address: Pending sale to [facility] [place] [address] Performed By: #### 5 8410-2 ####[facility] LABIA [id number] [address] [place] Nucleated RBC (Bld) [#/Vol] 10*3/uL Normal <0.01 [facility] Comment on above: Order Comment: Speci men Type: BLOOD SPECIMENOrdering Facility: [facility] Address: Pending sale to [facility] [place] [address] Performed By: #### 5 8410-2 ####[facility] LABIA [id number] [place] [id number] [place] Platelet mean volume (Bld) [Entitic vol] 9.9 fL Normal 9.0-12.7 [facility] Comment on above: Order Comment: Speci men Type: BLOOD SPECIMENOrdering Facility: [facility] Address: Pending sale to [facility] [place] [address] Performed By: #### 5 8410-2 ####[facility] LABIA [id number] [place] [address] [place] Platelets (Bld) [#/Vol] 265 10*3/uL Normal 150-400 [facility] Comment on above: Order Comment: Speci men Type: BLOOD SPECIMENOrdering Facility: [facility] Address: Pending sale to [facility] [place] [address] Performed By: #### 5 8410-2 ####[facility] [id number] [place] [address] [place] RBC (Bld) [#/Vol] 4.95 10*6/uL Normal 3.90-5.20 [facility] Comment on above: Order Comment: Speci men Type: BLOOD SPECIMENOrdering Facility: [facility] Address: Pending sale to [facility] [place] [address] Performed By: #### 5 8410-2 ####[facility] LABIA [id number] [place] [id number] [place] WBC (Bld) [#/Vol] 9.05 10*3/uL Normal 3.70-11.00 [facility] Comment on above: Order Comment: Speci men Type: BLOOD SPECIMENOrdering Facility: [facility] Address: Pending sale to [facility] [place] [address] Performed By: #### 5 8410-2 ####[facility] LABCLIA [id number] [address] [address] [place] Comprehensive metabolic 2000 panelon 03-03-2024 Albumin [Mass/Vol] 3.9 g/dL Normal 3.9-4.9 [facility] Comment on above: Order Comment: Speci men Type: BLOOD SPECIMENOrdering Facility: [facility] Address: Pending sale to [facility] [place] [address] Performed By: #### 2 4323-8 ####[facility] LABCLIA [id number] [place] [address] [place] ALP [Catalytic activity/Vol] 106 U/L Normal 34-123 [facility] Comment on above: Order Comment: Speci men Type: BLOOD SPECIMENOrdering Facility: [facility] Address: [facility] [place] [address] Performed By: #### 2 4323-8 ####[facility] LABCLIA [id number] [place] [address] [place] ALT [Catalytic activity/Vol] 20 U/L Normal 7-38 [facility] Comment on above: Order Comment: Speci men Type: BLOOD SPECIMENOrdering Facility: [facility] Address: P[facility] [place] [address] Performed By: #### 2 4323-8 ####[facility] LABIA [id number] [place] [id number] [place] Anion gap [Moles/Vol] 11 mmol/L Normal 8-15 [facility] Comment on above: Order Comment: Speci men Type: BLOOD SPECIMENOrdering Facility: [facility] Address: Pending sale to [facility] [place] [address] Performed By: #### 2 4323-8 ####[facility] LABCLIA [id number] [place] [id number] [place] AST [Catalytic activity/Vol] 13 U/L Normal 13-35 [facility] Comment on above: Order Comment: Speci men Type: BLOOD SPECIMENOrdering Facility: [facility] Address: Pending sale to [facility] [place] [address] Performed By: #### 2 4323-8 ####[facility] LABCLIA [id number] [place] [address] [place] Bilirubin [Mass/Vol] 0.2 mg/dL Normal 0.2-1.3 [facility] Comment on above: Order Comment: Speci men Type: BLOOD SPECIMENOrdering Facility: [facility] Address: Pending sale to [facility] [place] [address] Performed By: #### 2 4323-8 ####[facility] LABCLIA [id number] [place] [address] [place] Calcium [Mass/Vol] 9.7 mg/dL Normal 8.5-10.2 [facility] Comment on above: Order Comment: Speci men Type: BLOOD SPECIMENOrdering Facility: [facility] Address: Pending sale to [facility] [place] [address] Performed By: #### 2 4323-8 ####[facility] LABCLIA [id number] [place] [address] [place] Chloride [Moles/Vol] 105 mmol/L Normal 98-107 [facility] Comment on above: Order Comment: Speci men Type: BLOOD SPECIMENOrdering Facility: [facility] Address: Pending sale to [facility] [place] [address] Performed By: #### 2 4323-8 ####[facility] LABCLIA [id number] [place] [address] [place] CO2 [Moles/Vol] 26 mmol/L Normal 22-30 [facility] Comment on above: Order Comment: Speci men Type: BLOOD SPECIMENOrdering Facility: [facility] Address: Pending sale to [facility] [place] [address] Performed By: #### 2 4323-8 ####[facility] LABIA [id number] [place] [id number] [place] Creatinine [Mass/Vol] 0.79 mg/dL Normal 0.58-0.96 [facility] Comment on above: Order Comment: Rashad irwin Type: BLOOD SPECIMENOrdering Facility: [facility] Address: Pending sale to [facility] [place] [address] Performed By: #### 2 4323-8 ####[facility] LABIA [id number] [address] Creatinine and Glomerular filtration rate.predicted panel (S/P/Bld) 94 mL/min/1.73m??? Normal >=60 [facility] Comment on above: Order Comment: Rashad irwin Type: BLOOD SPECIMENOrdering Facility: [facility] Address: Pending sale to [facility] [place] [address] Result Comment: Jen mated Glomerular Filtration Rate (eGFR) is calculated using the 2020 CKD-EPI creatinine equation. This equation utilizes serum creatinine, sex, and age as parameters. The creatinine assay has traceable calibration to isotope dilution-mass spectrometry. Refer to KDIGO guidelines for clinical interpretation. In patients with unstable renal function, e.g. those with acute kidney injury, the eGFR may not accurately reflect actual GFR. Performed By: #### 2 4323-8 ####[facility] LABIA [id number] [place] [id number] [place] Glucose [Mass/Vol] 133 mg/dL High 74-99 [facility] Comment on above: Order Comment: Rashad irwin Type: BLOOD SPECIMENOrdering Facility: [facility] Address: [place] [address] Result Comment: The [place] Diabetes Association (ADA) provides guidance for cutoff values for fasting glucose and random glucose. The ADA defines fasting as no caloric intake for at least 8 hours. Fasting plasma glucose results between 100 to 125 mg/dL indicate increased risk for diabetes (prediabetes).Fasting plasma glucose results greater than or equal to 126 mg/dL meet the criteria for diagnosis of diabetes. In the absence of unequivocal hyperglycemia, results should be confirmed by repeat testing. In a patient with classic symptoms of hyperglycemia or hyperglycemic crisis, random plasma glucose results greater than or equal to 200 mg/dL meet the criteria for diagnosis of diabetes.Reference: Standards of Medical Care in Diabetes 2016, [place] [employer]. Diabetes Care. 2016.39(Suppl 1). Performed By: #### 2 4323-8 ####[facility] LABCLIA [id number] [place] [address] [place] Potassium [Moles/Vol] 4.3 mmol/L Normal 3.7-5.1 [facility] Comment on above: Order Comment: Rashad irwin Type: BLOOD SPECIMENOrdering Facility: [facility] Address: Pending sale to [facility] [place] [address] Performed By: #### 2 4323-8 ####[facility] LABCLIA [id number] [place] [address] [place] Protein [Mass/Vol] 7.2 g/dL Normal 6.3-8.0 [facility] Comment on above: Order Comment: Rashad irwin Type: BLOOD SPECIMENOrdering Facility: [facility] Address: Pending sale to [facility] [place] [address] Performed By: #### 2 4323-8 ####[facility] LABCLIA [id number] [place] [address] [place] Sodium [Moles/Vol] 142 mmol/L Normal 136-144 [facility] Comment on above: Order Comment: Surekhai alida Type: BLOOD SPECIMENOrdering Facility: [facility] Address: Pending sale to [facility] [place] [address] Performed By: #### 2 4323-8 ####[facility] LABCLIA [id number] [place] [id number] [place] Urea nitrogen [Mass/Vol] 12 mg/dL Normal 7-21 [facility] Comment on above: Order Comment: Surekhai men Type: BLOOD SPECIMENOrdering Facility: [facility] Address: [address] [place] [address] Performed By: #### 2 4323-8 ####[facility] LABCLIA [id number] [address] [place] HISTO CAPSULATUM AGon 2023 HISTOPLASMA ANTIGEN, SERUM Not detected Normal Not Detected [facility] Comment on above: Order Comment: Speci men Type: BLOOD SPECIMENOrdering Facility: [facility] Address: [address] [place] [address] Result Comment: Perf ormed By: [email or web address] [place], [place] [email or web address] Director: Brad Hernandez MD, PhDCLIA Number: [id number] Performed By: #### S HISTO ####[facility] [facility] LABORATORIESCLIA [id number] [place] [address] HISTOPLASMA ANTIGEN, SERUM INTERP Not detected Normal Not Detected [facility] Comment on above: Order Comment: Speci men Type: BLOOD SPECIMENOrdering Facility: [facility] Address: [address] [place] [address] Result Comment: INTE RPRETIVE INFORMATION: Histoplasma Antigen Quantitative by EIA,SerumLess than 0.19 ng/mL = Not Detected0.19-60.0 ng/mL = DetectedGreater than 60.0 ng/mL = Detected (above the limit ofquantification).The quantitative range of this assay is 0.19-60.0 ng/mL. Antigenconcentrations greater than 60.0 ng/mL fall outside the linearrange of the assay and cannot be accurately quantified.This EIA test should be used in conjunction with other diagnosticprocedures, including microbiological culture, histologicalexamination of biopsy samples, and/or radiographic evidence, toaid in the diagnosis of histoplasmosis.Crossreactivity with Blastomyces dermatiditis, Coccidioidesimmitis and possibly Talaromyces marneffei have been observed withthis EIA. Other clinically and geographically relevant endemicmycoses should be considered in the case of a positive test result.This test was developed and its performance characteristicsdetermined by [facility]. It has not been cleared orapproved by the [place] Food and Drug Administration. This test wasperformed in a CLIA certified laboratory and is intended forclinical purposes. Performed By: #### S HISTO ####[facility]OR[facility]IESCLIA [id number] [place] [address] Voriconazole [facility] Voriconazole [Mass/Vol] 0.8 ug/mL Low 1.0-5.9 [facility] Comment on above: Order Comment: Speci men Type: BLOOD SPECIMENOrdering Facility: [facility] Address: [address] [place] [address] [place] [address] Result Comment: Rang es are based on trough draw at steady-state concentration.Therapeutic: >0.9 ug/mLProphylactic: >0.9 ug/mLToxic: >5.9 ug/mLThe therapeutic, prophylactic, and toxic ranges were based on the 2016 Infectious Disease Society [place]'s (IDSA) Clinical Practice Guidelines for the Management of Aspergillosis and Candidiasis and consultation from [facility]'s Department of Infectious Disease.Reference ranges and high/low indicator flags are provided as general guidelines only. The treating physician must determine appropriate target levels/dosing based on the specific clinical situation.This test was developed, and its performance characteristics determined by the [facility] Department of Pathology and Laboratory Medicine. It has not been cleared or approved by the FDA. The [facility] Department of Pathology and Laboratory Medicine is regulated under CLIA as qualified to perform high-complexity testing. This test is used for clinical purposes. It should not be regarded as investigational or for research. Performed By: #### 3 8370-3 ####[facility] LABCLIA [id number] [place] [id number] [place] CNPNon 02-29-2024 CNPN Normal [facility] CT CHEST W IVCONon 4 CT CHEST W IVCON Normal Miguel Angelvelan suresh [facility] Fungus Stain 8136on 02-29-20 24 FUNST ___ TESTING PERFORMED AT [facility]. ORIGINAL REPORT ON FILE IN LAB CONTAINS ADDITIONAL TEST SITE INFORMATION. ___ Fungus Stain No yeast or mold observed. Normal [facility] Comment on above: Performed By: #### M 100.1999, M100.2400, M600.0 #### [facility] [address] [place], [address] CNPNon 02-28-2024 CNPN Normal [facility] Respiratory Cultureon 2023 RESPC Mixed normal respira tory wing. No Haemophilus, Streptococcus pneumoniae, beta-hemolytic Streptococcus or Staphylococcus aureus isolated. Normal [facility] Comment on above: Performed By: #### M 100.1999, M100.2400, M600.0 #### [facility] [address] [place], [address] A fumigatus IgE Qnon 024 A. fumigatus IgE Qn (S) <0.35 Normal <0.35 [facility] Comment on above: Order Comment: Speci men Type: BLOOD SPECIMENOrdering Facility: [facility] Address: [address] [place] [address] Performed By: #### 6 025-1, 73948-9 ####[facility] LABCLIA [id number] [place] [address] [place] A. FUMIGATUS AB, IGGon 02-24 A FUMIGATUS, IGG BY MARA 9.80 mcg/mL Normal <=99.99 [facility] Comment on above: Order Comment: Speci men Type: BLOOD SPECIMENOrdering Facility: [facility] Address: [address] [place] [address] Result Comment: REFE RENCE INTERVAL: Aspergillus fumigatus Antibody IgG 0.00-90.00 mcg/mL: .......... Negative - No significant level of A. fumigatus IgG antibody detected. 90.01-99.99 mcg/mL: ......... Equivocal - Questionable presence of A. fumigatus IgG antibody. 100.00 mcg/mL or greater: ... Positive - Aspergillus fumigatus IgG antibody detected. A positive result satisfies a single criterion in the determination of allergic bronchopulmonary aspergillosis(ABPA).This test was developed and its performance characteristicsdetermined by [facility]. It has not been cleared orapproved by the [place] Food and Drug Administration. This test wasperformed in a CLIA certified laboratory and is intended forclinical purposes. Performed By: #### Gabriela RÍOS ####[facility] LABORATORIESIA [id number] [place] [address] A. fumigatus IgE Qn (S)on A. fumigatus IgE RAST class (S) Class 0 Normal Class 0 [facility] Comment on above: Order Comment: Speci men Type: BLOOD SPECIMENOrdering Facility: [facility] Address: [address] [place] [address] Performed By: #### 6 025-1, 53120-7 ####[facility] LABIA [id number] [place] [address] [place] CBC W Auto Differential pane l (Bld)on 02-25-2024 Basophils (Bld) [#/Vol] 0.05 10*3/uL Normal <0.11 [facility] Comment on above: Order Comment: Speci men Type: BLOOD SPECIMENOrdering Facility: [facility] Address: [address] [place] [address] Performed By: #### 5 7021-8 ####[facility] LABIA [id number] [place] [address] [place] Basophils/100 WBC (Bld) 0.4 % Normal [facility] Comment on above: Order Comment: Speci men Type: BLOOD SPECIMENOrdering Facility: [facility] Address: [address] [place] [address] Performed By: #### 5 7021-8 ####[facility] LABCLIA [id number] [place] [address] [place] Differential cell count method Nom (Bld) Auto Normal [facility] Comment on above: Order Comment: Speci men Type: BLOOD SPECIMENOrdering Facility: [facility] Address: [address] [place] [address] Performed By: #### 5 7021-8 ####[facility] LABCLIA [id number] [place] [address] [place] Eosinophils (Bld) [#/Vol] 0.08 10*3/uL Normal <0.46 [facility] Comment on above: Order Comment: Speci men Type: BLOOD SPECIMENOrdering Facility: [facility] Address: [address] [place] [address] Performed By: #### 5 7021-8 ####[facility] LABCLIA [id number] [place] [address] [place] Eosinophils/100 WBC (Bld) 0.6 % Normal [facility] Comment on above: Order Comment: Speci men Type: BLOOD SPECIMENOrdering Facility: [facility] Address: [address] [place] [address] Performed By: #### 5 7021-8 ####[facility] LABCLIA [id number] [place] [address] [place] Erythrocyte distribution width (RBC) [Ratio] 14.6 % Normal 11.5-15.0 [facility] Comment on above: Order Comment: Speci men Type: BLOOD SPECIMENOrdering Facility: [facility] Address: [address] [place] [address] Performed By: #### 5 7021-8 ####[facility] LABCLIA [id number] [place] [address] [place] Hematocrit (Bld) [Volume fraction] 47.1 % High 36.0-46.0 [facility] Comment on above: Order Comment: Speci men Type: BLOOD SPECIMENOrdering Facility: [facility] Address: [address] [place] [address] Performed By: #### 5 7021-8 ####[facility] LABCLIA [id number] [place] [address] [place] Hemoglobin (Bld) [Mass/Vol] 14.3 g/dL Normal 11.5-15.5 [facility] Comment on above: Order Comment: Speci men Type: BLOOD SPECIMENOrdering Facility: [facility] Address: [address] [place] [address] Performed By: #### 5 7021-8 ####[facility] LABCLIA [id number] [place] [address] [place] Immature granulocytes (Bld) [#/Vol] 0.09 10*3/uL Normal <0.10 [facility] Comment on above: Order Comment: Speci men Type: BLOOD SPECIMENOrdering Facility: [facility] Address: [address] [place] [address] Performed By: #### 5 7021-8 ####[facility] LABCLIA [id number] [place] [address] [place] Immature granulocytes/100 WBC (Bld) 0.7 % Normal [facility] Comment on above: Order Comment: Speci men Type: BLOOD SPECIMENOrdering Facility: [facility] Address: [address] [place] [address] Performed By: #### 5 7021-8 ####[facility] LABCLIA [id number] [place] [address] [place] Lymphocytes (Bld) [#/Vol] 3.27 10*3/uL Normal 1.00-4.00 [facility] Comment on above: Order Comment: Speci men Type: BLOOD SPECIMENOrdering Facility: [facility] Address: [address] [place] [address] Performed By: #### 5 7021-8 ####[facility] LABIA [id number] [place] [address] [place] Lymphocytes/100 WBC (Bld) 24.5 % Normal [facility] Comment on above: Order Comment: Speci men Type: BLOOD SPECIMENOrdering Facility: [facility] Address: [address] [place] [address] Performed By: #### 5 7021-8 ####[facility] LABIA [id number] [place] [address] [place] MCH (RBC) [Entitic mass] 29.0 pg Normal 26.0-34.0 [facility] Comment on above: Order Comment: Speci men Type: BLOOD SPECIMENOrdering Facility: [facility] Address: [address] [place] [address] Performed By: #### 5 7021-8 ####[facility] LABIA [id number] [place] [address] [place] MCHC (RBC) [Mass/Vol] 30.4 g/dL Low 30.5-36.0 [facility] Comment on above: Order Comment: Speci men Type: BLOOD SPECIMENOrdering Facility: [facility] Address: [address] [place] [address] Performed By: #### 5 7021-8 ####[facility] LABIA [id number] [place] [address] [place] MCV (RBC) [Entitic vol] 95.5 fL Normal 80.0-100.0 [facility] Comment on above: Order Comment: Speci men Type: BLOOD SPECIMENOrdering Facility: [facility] Address: [address] [place] [address] Performed By: #### 5 7021-8 ####[facility] LABIA [id number] [place] [address] [place] Monocytes (Bld) [#/Vol] 0.80 10*3/uL Normal <0.87 [facility] Comment on above: Order Comment: Speci men Type: BLOOD SPECIMENOrdering Facility: [facility] Address: [address] [place] [address] Performed By: #### 5 7021-8 ####[facility] LABCLIA [id number] [place] [address] [place] Monocytes/100 WBC (Bld) 6.0 % Normal [facility] Comment on above: Order Comment: Speci men Type: BLOOD SPECIMENOrdering Facility: [facility] Address: [address] [place] [address] Performed By: #### 5 7021-8 ####[facility] LABCLIA [id number] [place] [address] [place] Neutrophils (Bld) [#/Vol] 9.08 10*3/uL High 1.45-7.50 [facility] Comment on above: Order Comment: Speci men Type: BLOOD SPECIMENOrdering Facility: [facility] Address: [address] [place] [address] Performed By: #### 5 7021-8 ####[facility] LABCLIA [id number] [place] [address] [place] Neutrophils/100 WBC (Bld) 67.8 % Normal [facility] Comment on above: Order Comment: Speci men Type: BLOOD SPECIMENOrdering Facility: [facility] Address: [address] [place] [address] Performed By: #### 5 7021-8 ####[facility] LABCLIA [id number] [place] [address] [place] Nucleated RBC (Bld) [#/Vol] 10*3/uL Normal <0.01 [facility] Comment on above: Order Comment: Speci men Type: BLOOD SPECIMENOrdering Facility: [facility] Address: [address] [place] [address] Performed By: #### 5 7021-8 ####[facility] LABCLIA [id number] [place] [address] [place] Nucleated RBC/100 WBC (Bld) [Ratio] 0.0 /100 WBC Normal [facility] Comment on above: Order Comment: Speci men Type: BLOOD SPECIMENOrdering Facility: [facility] Address: [address] [place] [address] Performed By: #### 5 7021-8 ####[facility] LABIA [id number] [place] [address] [place] Platelet mean volume (Bld) [Entitic vol] 10.0 fL Normal 9.0-12.7 [facility] Comment on above: Order Comment: Speci men Type: BLOOD SPECIMENOrdering Facility: [facility] Address: [address] [place] [address] Performed By: #### 5 7021-8 ####[facility] LABIA [id number] [place] [address] [place] Platelets (Bld) [#/Vol] 251 10*3/uL Normal 150-400 [facility] Comment on above: Order Comment: Speci men Type: BLOOD SPECIMENOrdering Facility: [facility] Address: [address] [place] [address] Performed By: #### 5 7021-8 ####[facility] LABIA [id number] [place] [address] [place] RBC (Bld) [#/Vol] 4.93 10*6/uL Normal 3.90-5.20 [facility] Comment on above: Order Comment: Speci men Type: BLOOD SPECIMENOrdering Facility: [facility] Address: [address] [place] [address] Performed By: #### 5 7021-8 ####[facility] LABIA [id number] [place] [id number] [place] WBC (Bld) [#/Vol] 13.37 10*3/uL High 3.70-11.00 [facility] Comment on above: Order Comment: Speci men Type: BLOOD SPECIMENOrdering Facility: [facility] Address: [address] [place] [address] Performed By: #### 5 7021-8 ####[facility] LABCLIA [id number] [place] [address] [place] CNPNon 02-25-2024 CNPN Normal [facility] Gram Stainon 02-25-2024 GS Acceptable Specimen? Yes (<25 Epithelial cells per/lpf) Gram Stain 4+ White Blood Cells 3+ Gram positive rods 1+ Epithelial cells 1+ Gram positive cocci Normal [facility] Comment on above: Performed By: #### M 100.2000, M100.2400, M600.2200 #### [facility] [address] [place], [place], [address] IgE SerPl-aCncon 02-25-2024 IgE Qn 48.4 kU/l Normal <114.0 [facility] Comment on above: Order Comment: Speci men Type: BLOOD SPECIMENOrdering Facility: [facility] Address: [address] [place] [address] Performed By: #### 6 025-1, 08410-1 ####[facility] LABCLIA [id number] [place] [address] [place] Liver Profileon 02-25-2024 Albumin [Mass/Vol] 3.2 g/dL Normal 3.2-5.0 [facility] Comment on above: Performed By: #### L 010.5330 #### [facility] [address] [place], [place], [address] ALK P 101 U/L Normal 45-117 [facility] Comment on above: Performed By: #### L 500.3400 #### [facility] [address] [place], [address] ALT [Catalytic activity/Vol] 26 U/L Normal 13-56 [facility] Comment on above: Performed By: #### L 500.3400 #### [facility] [address] [place], [address] AST [Catalytic activity/Vol] 26 U/L Normal 15-37 [facility] Comment on above: Result Comment: Mode rate Hemolysis, Result may be falsely increased. Performed By: #### L 500.3400 #### [facility] [address] [place], [address] Bilirubin [Mass/Vol] 0.40 mg/dL Normal 0.20-1.00 [facility] Comment on above: Result Comment: For patients on eltrombopag therapy, use of Dimension [place] TBIL is not recommended. Performed By: #### L 500.3400 #### [facility] [address] [place], [address] D BILI < 0.05 Normal 0.00-0.30 [facility] Comment on above: Performed By: #### L 500.3400 #### [facility] [address] [place], [address] Globulin (S) [Mass/Vol] 4.4 g/dL High 2.2-4.2 [facility] Comment on above: Performed By: #### L 500.3400 #### [facility] [address] [place], [address] T PROT 7.6 g/dL Normal 6.4-8.2 [facility] Comment on above: Performed By: #### L 500.3400 #### [facility] [address] [place], [address] Pulmonary Visit Reporton Pulmonary Visit Report [facility] [address] [place] [address] OFFICE VISIT Date of Service: 02/25/24 MR#: [id number] Acct: [id number] Name: DARREN REINOSO Rep #: [id number] : 1980 Provider: RAMON Regalado Age/Sex: 44/F Location: [facility].PMW Status: Signed Assessment and Plan Assessment and Plan (1) Aspergillosis: Status: Acute Plan: The patient shows me her MyChart from [facility]. Detailed sputum results are not available, however I am able to see that the patient was positive for Aspergillus. She has requested that the full test results be faxed to our office. She was able to provide a sputum sample in the office today which will be sent for culture, sensitivity and fungal smears. This case was discussed with Dr. Boone. We are going to proceed with treating the patient for Aspergillus with voriconazole 200 mg twice daily for 30 days with 1 refill. I explained to the patient that this typically requires a 16-week treatment. She will be referred to infectious disease. She has been encouraged to continue her maintenance medications. NIOX procedure was attempted in the office today, after 4 attempts the patient was not able to complete the testing. She is encouraged to complete the prednisone that she is currently on. She has a previously scheduled appointment here in the office in April, which will be kept. The patient has been instructed that if she has not heard from the infectious disease office by next week she should contact our office and we will facilitate an appointment. She conveys understanding and is agreeable with this plan. Liver profile performed today to be evaluated prior to the start of the antifungal. Orders: Orders Culture, Sputum Today J40 - Bronchitis, not specified as acute or chronic NIOX Today J45.909 - Unspecified asthma, uncomplicated Fungus Stain 8136 Today J45.909 - Unspecified asthma, uncomplicated Liver Profile Today B44.9 - Aspergillosis, unspecified Referrals Infectious Disease B44.9 - Aspergillosis, unspecified, J45.909 - Unspecified asthma, uncomplicated Medications: New voriconazole administer on empty stomach, at least 1 hour before or after meal(s) 200 mg PO Q12H 60 tabs 1RF Plan Details Goals Barriers: Goals Decrease pain and radiculopathy Barriers Obesity HPI Cough Chief Complaint: Shortness of breath HPI Comments Details: This patient presents to the office today for an acute visit regarding cough. She is ambulatory and currently on room air. The patient has been treated with several rounds of antibiotics and is on her fifth round of prednisone. This has been ongoing since the middle of December. She has been in contact and seen by her primary care doctor frequently. She has had imaging, including chest x-ray. She is compliant with the use of Breo 1 puff daily. She reports rinsing her mouth out after each use. She denies any medication side effects such sore throat or thrush. She is also compliant with cetirizine daily and Singulair daily. She is using her DuoNebs 4 times daily. She has shortness of breath that is worse with exertion. She is exerted easily. She has a cough that is productive of clear cloudy sputum. She denies any hemoptysis. She has wheezing and chest tightness but denies any chest pain or palpitations. She has not had any fever, chills or body aches. She continues to smoke cigarettes. If you recall, she was a 1 pack/day smoker but due to her shortness of breath she has been reducing her cigarettes. She is now down to about 5 cigare ttes/day. Intake Vital Signs 01/04/24 15:13 02/25/24 07:39 Height 5 ft 3 in 5 ft 3 in Weight: 317 lb BMI 56.1 BP 140/98 H Blood Pressure Location Lt radial Position Sitting Respiration 18 Pulse 86 Pulse Source Monitor Temp 97.4 F L Temperature Source Temporal Artery Pulse Oximetry (%) 99 Oxygen Delivery Method room air Intake Visit Reasons: Cough Chief Complaint: Productive cough DME Vendor: [employer] Accompanied by: Self Allergies celecoxib (From Celebrex) Allergy (Verified 02/25/24 10:21) PT UNSURE OF REACTION codeine Allergy (Verified 02/25/24 10:21) Anaphylaxis nirmatrelvir (From Paxlovid) Allergy (Verified 02/25/24 10:21) Vomiting propoxyphene napsylate (From Darvocet-N) Allergy (Verified 02/25/24 10:21) Rash ritonavir (From Paxlovid) Allergy (Verified 02/25/24 10:21) Vomiting Sulfa (Sulfonamide Antibiotics) Allergy (Verified 02/25/24 10:21) Anaphylaxis amoxicillin Adverse Reaction (Verified 02/25/24 10:21) Other Medications ???Medication ???Instructions ???Recorded ???Confirmed ???Type atorvastatin 10 mg tablet 10 mg PO QHS 05/24/19 02/25/24 History ipratropium 0.5 mg-albuterol 3 mg 3 ml IH Q6H PRN PRN So (more content not included)... Normal [facility] CNOVon 02-21-2024 CNOV Normal [facility] Bacteria Spec Resp Culton Bacteria identified Respiratory culture Nom (Unsp spec) ORGANISM ID: 1 Many normal respiratory wing ORGANISM ID: 2 Rare Aspergillus fumigatus By MALDI TOF Mass Spectrometry. GRAM STAIN: Rare Mixed oral wing No Polymorphonuclear Leukocytes Abnormal [facility] Comment on above: Performed By: #### 3 2355-0 ####[facility] LABCLIA [id number] [address] [place] CNOVon 02-17-2024 CNOV Normal [facility] XR CHEST 2V FRONTAL/LATon XR CHEST 2V FRONTAL/LAT Normal [facility] XR Chest PA and Lateralon IMPRESSION: No definite acute radiographic abnormality. Quality Improvement Consultant: SARWAT Transcribe Date/Time: Feb 04 2024 4:59P Dictated by : DELIO CALDWELL MD This examination was interpreted and the report reviewed and electronically signed by: DELIO CALDWELL MD on Feb 04 2024 4:59PM [facility] DIVISION OF RADIOLOGY * * *Final Report* * * DATE OF EXAM: Feb 04 2024 2:58PM WOX 5291 - XR CHEST 2V FRONTAL/LAT / PROCEDURE REASON: multiple diagnoses * * * * Physician Interpretation * * * * EXAMINATION: CHEST RADIOGRAPH (2 VIEW FRONTAL & LATERAL) CLINICAL HISTORY: Shortness of breath Cough, unspecified type MQ: XC2_6 EXAM DATE/TIME: 02/04/2024 2:58 PM COMPARISON: Chest x-ray on 01/21/2024 RESULT: Lines, tubes, and devices: None. Lungs and pleura: Small lung volume due to inadequate inspiration. No consolidation. No lung mass. No pleural effusion. No pneumothorax. Cardiomediastinal silhouette: Normal cardiomediastinal silhouette. Bones and soft tissues: There are degenerative changes in the spine. DIVISION OF RADIOLOGY Provider, Latisha Viramontes - 02/04/2024 * * *Final Report* * * DATE OF EXAM: Feb 04 2024 2:58PM WOX 5291 - XR CHEST 2V FRONTAL/LAT / PROCEDURE REASON: multiple diagnoses * * * * Physician Interpretation * * * * EXAMINATION: CHEST RADIOGRAPH (2 VIEW FRONTAL & LATERAL) CLINICAL HISTORY: Shortness of breath Cough, unspecified type MQ: XC2_6 EXAM DATE/TIME: 02/04/2024 2:58 PM COMPARISON: Chest x-ray on 01/21/2024 RESULT: Lines, tubes, and devices: None. Lungs and pleura: Small lung volume due to inadequate inspiration. No consolidation. No lung mass. No pleural effusion. No pneumothorax. Cardiomediastinal silhouette: Normal cardiomediastinal silhouette. Bones and soft tissues: There are degenerative changes in the spine. IMPRESSION IMPRESSION: No definite acute radiographic abnormality. Quality Improvement Consultant: PSCB Transcribe Date/Time: Feb 04 2024 4:59P Dictated by : DELIO CALDWELL MD This examination was interpreted and the report reviewed and electronically signed by: DELIO CALDWELL MD on Feb 04 2024 4:59PM EST [facility] Radiology Study observation (narrative) [facility] XR Chest PA and LateralOrder ed By: Ccf Provider on 02-04-2024 [facility] CNOVon 02-02-2024 CNOV Normal [facility] COVID AND INFLUENZA A/B AND RSV PCR, ROUTINEon 02-02-2024 SARS-CoV-2 (COVID-19) RNA PREETI+probe Ql (Unsp spec) SARS-COV-2 (AGENT OF COVID-19) RNA: Not detected INFLUENZA A RNA: Not detected INFLUENZA B RNA: Not detected RESPIRATORY SYNCYTIAL VIRUS (RSV) RNA: Not detected Normal [facility] Comment on above: Performed By: #### C VFLRS ####[facility] LABCLIA [id number] [id number] [address] [place] Basic metabolic 2000 panelon 01-21-2024 Anion gap [Moles/Vol] 13 mmol/L Normal 8-15 [facility] Comment on above: Order Comment: Speci men Type: BLOOD SPECIMENOrdering Facility: [facility] Address: [address] [place] [address] Performed By: #### 2 4321-2 ####[facility] LABCLIA [id number] [place] [address] [place] Calcium [Mass/Vol] 9.5 mg/dL Normal 8.5-10.2 [facility] Comment on above: Order Comment: Speci men Type: BLOOD SPECIMENOrdering Facility: [facility] Address: [address] [place] [address] Performed By: #### 2 4321-2 ####[facility] LABCLIA [id number] [place] [address] [place] Chloride [Moles/Vol] 104 mmol/L Normal 98-107 [facility] Comment on above: Order Comment: Speci men Type: BLOOD SPECIMENOrdering Facility: [facility] Address: [address] [place] [address] Performed By: #### 2 4321-2 ####[facility] LABCLIA [id number] [place] [address] [place] CO2 [Moles/Vol] 21 mmol/L Low 22-30 [facility] Comment on above: Order Comment: Speci men Type: BLOOD SPECIMENOrdering Facility: [facility] Address: [address] [place] [address] Performed By: #### 2 4321-2 ####[facility] LABCLIA [id number] [place] [address] [place] Creatinine [Mass/Vol] 0.71 mg/dL Normal 0.58-0.96 [facility] Comment on above: Order Comment: Speci men Type: BLOOD SPECIMENOrdering Facility: [facility] Address: [address] [place] [address] Performed By: #### 2 4321-2 ####[facility] LABCLIA [id number] [place] [address] [place] Creatinine and Glomerular filtration rate.predicted panel (S/P/Bld) 106 mL/min/1.73m??? Normal >=60 [facility] Comment on above: Order Comment: Rashad irwin Type: BLOOD SPECIMENOrdering Facility: [facility] Address: [address] [place] [address] Result Comment: Jen mated Glomerular Filtration Rate (eGFR) is calculated using the 2020 CKD-EPI creatinine equation. This equation utilizes serum creatinine, sex, and age as parameters. The creatinine assay has traceable calibration to isotope dilution-mass spectrometry. Refer to KDIGO guidelines for clinical interpretation. In patients with unstable renal function, e.g. those with acute kidney injury, the eGFR may not accurately reflect actual GFR. Performed By: #### 2 4321-2 ####[facility] LABCLIA [id number] [place] [address] [place] Glucose [Mass/Vol] 110 mg/dL High 74-99 [facility] Comment on above: Order Comment: Rashad irwin Type: BLOOD SPECIMENOrdering Facility: [facility] Address: [address] [place] [address] Result Comment: The [place] Diabetes [employer] (ADA) provides guidance for cutoff values for fasting glucose and random glucose. The ADA defines fasting as no caloric intake for at least 8 hours. Fasting plasma glucose results between 100 to 125 mg/dL indicate increased risk for diabetes (prediabetes).Fasting plasma glucose results greater than or equal to 126 mg/dL meet the criteria for diagnosis of diabetes. In the absence of unequivocal hyperglycemia, results should be confirmed by repeat testing. In a patient with classic symptoms of hyperglycemia or hyperglycemic crisis, random plasma glucose results greater than or equal to 200 mg/dL meet the criteria for diagnosis of diabetes.Reference: Standards of Medical Care in Diabetes 2016, [place] [employer] Association. Diabetes Care. 2016.39(Suppl 1). Performed By: #### 2 4321-2 ####[facility] LABCLIA [id number] [place] [address] [place] Potassium [Moles/Vol] 4.3 mmol/L Normal 3.7-5.1 [facility] Comment on above: Order Comment: Speci men Type: BLOOD SPECIMENOrdering Facility: [facility] Address: [address] [place] [address] Performed By: #### 2 4321-2 ####[facility] LABCLIA [id number] [place] [address] [place] Sodium [Moles/Vol] 138 mmol/L Normal 136-144 [facility] Comment on above: Order Comment: Speci men Type: BLOOD SPECIMENOrdering Facility: [facility] Address: [address] [place] [address] Performed By: #### 2 4321-2 ####[facility] LABCLIA [id number] [place] [address] [place] Urea nitrogen [Mass/Vol] 12 mg/dL Normal 7-21 [facility] Comment on above: Order Comment: Speci men Type: BLOOD SPECIMENOrdering Facility: [facility] Address: [address] [place] [address] Performed By: #### 2 4321-2 ####[facility] LABCLIA [id number] [place] [address] [place] CBC W Auto Differential pane l (Bld)on 01-21-2024 Basophils (Bld) [#/Vol] 0.05 10*3/uL [facility] Basophils/100 WBC (Bld) 0.5 % [facility] Differential cell count method Nom (Bld) Auto [facility] Eosinophils (Bld) [#/Vol] 0.07 10*3/uL [facility] Eosinophils/100 WBC (Bld) 0.7 % [facility] Erythrocyte distribution width (RBC) [Ratio] 14.3 % 11.5 - 15.0 % [facility] Hematocrit (Bld) [Volume fraction] 44.6 % 36.0 - 46.0 % [facility] Hemoglobin (Bld) [Mass/Vol] 13.6 g/dL 11.5 - 15.5 g/dL [facility] Immature granulocytes (Bld) [#/Vol] 0.05 10*3/uL [facility] Immature granulocytes/100 WBC (Bld) 0.5 % [facility] Lymphocytes (Bld) [#/Vol] 2.43 10*3/uL [facility] Lymphocytes/100 WBC (Bld) 25.2 % [facility] MCH (RBC) [Entitic mass] 28.9 pg 26.0 - 34.[address] [facility] MCHC (RBC) [Mass/Vol] 30.5 g/dL 30.5 - 36.0 g/dL [facility] MCV (RBC) [Entitic vol] 94.7 fL 80.0 - 100.[address] [facility] Monocytes (Bld) [#/Vol] 0.66 10*3/uL [facility] Monocytes/100 WBC (Bld) 6.8 % [facility] Neutrophils (Bld) [#/Vol] 6.40 10*3/uL [facility] Neutrophils/100 WBC (Bld) 66.3 % [facility] Nucleated RBC (Bld) [#/Vol] [facility] Nucleated RBC/100 WBC (Bld) [Ratio] 0.0 % /[address] [facility] Platelet mean volume (Bld) [Entitic vol] 9.6 fL 9.0 - 12.[address] [facility] Platelets (Bld) [#/Vol] 248 10*3/uL [facility] RBC (Bld) [#/Vol] 4.71 10*6/uL 3.90 - 5.2 0 m/uL [facility] WBC (Bld) [#/Vol] 9.66 10*3/uL [facility] Basophils (Bld) [#/Vol] 0.05 10*3/uL Normal <0.11 [facility] Comment on above: Order Comment: Speci men Type: BLOOD SPECIMENOrdering Facility: [facility] Address: [address] [place], [place] [address] Performed By: #### 5 7021-8 ####[facility] LABCLIA [id number] [place] [address] [place] Basophils/100 WBC (Bld) 0.5 % Normal [facility] Comment on above: Order Comment: Speci men Type: BLOOD SPECIMENOrdering Facility: [facility] Address: [address] [place] [address] Performed By: #### 5 7021-8 ####[facility] LABCLIA [id number] [place] [address] [place] Differential cell count method Nom (Bld) Auto Normal [facility] Comment on above: Order Comment: Speci men Type: BLOOD SPECIMENOrdering Facility: [facility] Address: [address] [place] [address] Performed By: #### 5 7021-8 ####[facility] LABCLIA [id number] [place] [address] [place] Eosinophils (Bld) [#/Vol] 0.07 10*3/uL Normal <0.46 [facility] Comment on above: Order Comment: Speci men Type: BLOOD SPECIMENOrdering Facility: [facility] Address: [address] [place] [address] Performed By: #### 5 7021-8 ####[facility] LABCLIA [id number] [place] [address] [place] Eosinophils/100 WBC (Bld) 0.7 % Normal [facility] Comment on above: Order Comment: Speci men Type: BLOOD SPECIMENOrdering Facility: [facility] Address: [address] [place] [address] Performed By: #### 5 7021-8 ####[facility] LABCLIA [id number] [place] [address] [place] Erythrocyte distribution width (RBC) [Ratio] 14.3 % Normal 11.5-15.0 [facility] Comment on above: Order Comment: Speci men Type: BLOOD SPECIMENOrdering Facility: [facility] Address: [address] [place] [address] Performed By: #### 5 7021-8 ####[facility] LABCLIA [id number] [place] [address] [place] Hematocrit (Bld) [Volume fraction] 44.6 % Normal 36.0-46.0 [facility] Comment on above: Order Comment: Speci men Type: BLOOD SPECIMENOrdering Facility: [facility] Address: [address] [place] [address] Performed By: #### 5 7021-8 ####[facility] LABCLIA [id number] [place] [address] [place] Hemoglobin (Bld) [Mass/Vol] 13.6 g/dL Normal 11.5-15.5 [facility] Comment on above: Order Comment: Speci men Type: BLOOD SPECIMENOrdering Facility: [facility] Address: [address] [place] [address] Performed By: #### 5 7021-8 ####[facility] LABCLIA [id number] [place] [address] [place] Immature granulocytes (Bld) [#/Vol] 0.05 10*3/uL Normal <0.10 [facility] Comment on above: Order Comment: Speci men Type: BLOOD SPECIMENOrdering Facility: [facility] Address: [address] [place] [address] Performed By: #### 5 7021-8 ####[facility] LABCLIA [id number] [place] [address] [place] Immature granulocytes/100 WBC (Bld) 0.5 % Normal [facility] Comment on above: Order Comment: Speci men Type: BLOOD SPECIMENOrdering Facility: [facility] Address: [address] [place] [address] Performed By: #### 5 7021-8 ####[facility] LABCLIA [id number] [place] [address] [place] Lymphocytes (Bld) [#/Vol] 2.43 10*3/uL Normal 1.00-4.00 [facility] Comment on above: Order Comment: Speci men Type: BLOOD SPECIMENOrdering Facility: [facility] Address: [address] [place] [address] Performed By: #### 5 7021-8 ####[facility] LABCLIA [id number] [place] [address] [place] Lymphocytes/100 WBC (Bld) 25.2 % Normal [facility] Comment on above: Order Comment: Speci men Type: BLOOD SPECIMENOrdering Facility: [facility] Address: [address] [place] [address] Performed By: #### 5 7021-8 ####[facility] LABCLIA [id number] [place] [address] [place] MCH (RBC) [Entitic mass] 28.9 pg Normal 26.0-34.0 [facility] Comment on above: Order Comment: Speci men Type: BLOOD SPECIMENOrdering Facility: [facility] Address: [address] [place] [address] Performed By: #### 5 7021-8 ####[facility] LABCLIA [id number] [place] [address] [place] MCHC (RBC) [Mass/Vol] 30.5 g/dL Normal 30.5-36.0 [facility] Comment on above: Order Comment: Speci men Type: BLOOD SPECIMENOrdering Facility: [facility] Address: [address] [place] [address] Performed By: #### 5 7021-8 ####[facility] LABCLIA [id number] [place] [address] [place] MCV (RBC) [Entitic vol] 94.7 fL Normal 80.0-100.0 [facility] Comment on above: Order Comment: Speci men Type: BLOOD SPECIMENOrdering Facility: [facility] Address: [address] [place] [address] Performed By: #### 5 7021-8 ####[facility] LABCLIA [id number] [place] [address] [place] Monocytes (Bld) [#/Vol] 0.66 10*3/uL Normal <0.87 [facility] Comment on above: Order Comment: Speci men Type: BLOOD SPECIMENOrdering Facility: [facility] Address: [address] [place] [address] Performed By: #### 5 7021-8 ####[facility] LABCLIA [id number] [place] [address] [place] Monocytes/100 WBC (Bld) 6.8 % Normal [facility] Comment on above: Order Comment: Speci men Type: BLOOD SPECIMENOrdering Facility: [facility] Address: [address] [place] [address] Performed By: #### 5 7021-8 ####[facility] LABCLIA [id number] [place] [address] [place] Neutrophils (Bld) [#/Vol] 6.40 10*3/uL Normal 1.45-7.50 [facility] Comment on above: Order Comment: Speci men Type: BLOOD SPECIMENOrdering Facility: [facility] Address: [address] [place] [address] Performed By: #### 5 7021-8 ####[facility] LABCLIA [id number] [place] [address] [place] Neutrophils/100 WBC (Bld) 66.3 % Normal [facility] Comment on above: Order Comment: Speci men Type: BLOOD SPECIMENOrdering Facility: [facility] Address: [address] [place] [address] Performed By: #### 5 7021-8 ####[facility] LABCLIA [id number] [place] [address] [place] Nucleated RBC (Bld) [#/Vol] 10*3/uL Normal <0.01 [facility] Comment on above: Order Comment: Speci men Type: BLOOD SPECIMENOrdering Facility: [facility] Address: [address] [place] [address] Performed By: #### 5 7021-8 ####[facility] LABCLIA [id number] [place] [address] [place] Nucleated RBC/100 WBC (Bld) [Ratio] 0.0 /100 WBC Normal [facility] Comment on above: Order Comment: Speci men Type: BLOOD SPECIMENOrdering Facility: [facility] Address: [address] [place] [address] Performed By: #### 5 7021-8 ####[facility] LABIA [id number] [place] [address] [place] Platelet mean volume (Bld) [Entitic vol] 9.6 fL Normal 9.0-12.7 [facility] Comment on above: Order Comment: Speci men Type: BLOOD SPECIMENOrdering Facility: [facility] Address: [address] [place] [address] Performed By: #### 5 7021-8 ####[facility] LABIA [id number] [place] [address] [place] Platelets (Bld) [#/Vol] 248 10*3/uL Normal 150-400 [facility] Comment on above: Order Comment: Speci men Type: BLOOD SPECIMENOrdering Facility: [facility] Address: [address] [place] [address] Performed By: #### 5 7021-8 ####[facility] LABCLIA [id number] [place] [address] [place] RBC (Bld) [#/Vol] 4.71 10*6/uL Normal 3.90-5.20 [facility] Comment on above: Order Comment: Speci men Type: BLOOD SPECIMENOrdering Facility: [facility] Address: [address] [place] [address] Performed By: #### 5 7021-8 ####[facility] LABCLIA [id number] [place] [address] [place] WBC (Bld) [#/Vol] 9.66 10*3/uL Normal 3.70-11.00 [facility] Comment on above: Order Comment: Speci men Type: BLOOD SPECIMENOrdering Facility: [facility] Address: [address] [place] [address] Performed By: #### 5 7021-8 ####[facility] LABCLIA [id number] [place] [address] [place] CNOVon 01-21-2024 CNOV Normal [facility] XR CHEST 2V FRONTAL/LATon XR CHEST 2V FRONTAL/LAT Normal [facility] XR Chest PA and Lateralon IMPRESSION: No acute radiographic abnormality. Quality Improvement Consultant: SARWAT Transcribe Date/Time: Jan 21 2024 12:12P Dictated by : DELIO CALDWELL MD This examination was interpreted and the report reviewed and electronically signed by: DELIO CALDWELL MD on Jan 21 2024 12:13PM [facility] DIVISION OF RADIOLOGY * * *Final Report* * * DATE OF EXAM: Jan 21 2024 12:06PM WOX 5291 - XR CHEST 2V FRONTAL/LAT / PROCEDURE REASON: multiple diagnoses * * * * Physician Interpretation * * * * EXAMINATION: CHEST RADIOGRAPH (2 VIEW FRONTAL & LATERAL) CLINICAL HISTORY: Shortness of breath Chills MQ: XC2_6 EXAM DATE/TIME: 01/21/2024 12:06 PM COMPARISON: Chest x-ray on 01/03/2024 RESULT: Lines, tubes, and devices: None. Lungs and pleura: No consolidation. No lung mass. No pleural effusion. No pneumothorax. Left-sided large pericardial fat pad is noted. Cardiomediastinal silhouette: Stable cardiac silhouette and mediastinal contour. Bones and soft tissues: The spine shows degenerative changes. DIVISION OF RADIOLOGY Provider, Latisha Viramontes - 01/21/2024 * * *Final Report* * * DATE OF EXAM: Jan 21 2024 12:06PM WOX 5291 - XR CHEST 2V FRONTAL/LAT / PROCEDURE REASON: multiple diagnoses * * * * Physician Interpretation * * * * EXAMINATION: CHEST RADIOGRAPH (2 VIEW FRONTAL & LATERAL) CLINICAL HISTORY: Shortness of breath Chills MQ: XC2_6 EXAM DATE/TIME: 01/21/2024 12:06 PM COMPARISON: Chest x-ray on 01/03/2024 RESULT: Lines, tubes, and devices: None. Lungs and pleura: No consolidation. No lung mass. No pleural effusion. No pneumothorax. Left-sided large pericardial fat pad is noted. Cardiomediastinal silhouette: Stable cardiac silhouette and mediastinal contour. Bones and soft tissues: The spine shows degenerative changes. IMPRESSION IMPRESSION: No acute radiographic abnormality. Quality Improvement Consultant: PSCB Transcribe Date/Time: Jan 21 2024 12:12P Dictated by : DELIO CALDWELL MD This examination was interpreted and the report reviewed and electronically signed by: DELIO CALDWELL MD on Jan 21 2024 12:13PM EST [facility] Radiology Study observation (narrative) [facility] XR Chest PA and LateralOrder ed By: Ccf Provider on 01-21-2024 [facility] CNPNon 01-18-2024 CNPN Normal [facility] CNOVon 01-13-2024 CNOV Normal [facility] CNPNon 01-11-2024 CNPN Normal [facility] CNPNon 01-05-2024 CNPN Normal [facility] .Auto Diffon 01-04-2024 Basophil, Absolute 0.0 10 3/mcL Normal 0.0-0.2 [facility] ([place]) Comment on above: Performed By: #### M DW, CBC, ADIFF, BMP, ANEU, GFR, TROPHS, PBNP #### [address] [address] Basophils/100 WBC (Bld) 0.3 % Normal 0.0-2.5 [facility] ([place]) Comment on above: Performed By: #### M DW, CBC, ADIFF, BMP, ANEU, GFR, TROPHS, PBNP #### [address] [address] Eosinophil, Absolute 0.1 10 3/mcL Normal 0.0-0.4 [facility] ([place]) Comment on above: Performed By: #### M DW, CBC, ADIFF, BMP, ANEU, GFR, TROPHS, PBNP #### [address] [address] Eosinophils/100 WBC (Bld) 0.9 % Normal 0.0-7.0 [facility] ([place]) Comment on above: Performed By: #### M DW, CBC, ADIFF, BMP, ANEU, GFR, TROPHS, PBNP #### [address] [address] Lymphocyte, Absolute 2.1 10 3/mcL Normal 0.8-3.9 [facility] ([place]) Comment on above: Performed By: #### M DW, CBC, ADIFF, BMP, ANEU, GFR, TROPHS, PBNP #### [address] [address] Lymphocytes/100 WBC (Bld) 24.7 % Normal 10.0-50.0 [facility] ([place]) Comment on above: Performed By: #### M DW, CBC, ADIFF, BMP, ANEU, GFR, TROPHS, PBNP #### [address] [address] Monocyte, Absolute 0.5 10 3/mcL Normal 0.2-1.0 [facility] ([place]) Comment on above: Performed By: #### M DW, CBC, ADIFF, BMP, ANEU, GFR, TROPHS, PBNP #### [address] [address] Monocytes/100 WBC (Bld) 6.4 % Normal 1.7-13.0 [facility] ([place]) Comment on above: Performed By: #### M DW, CBC, ADIFF, BMP, ANEU, GFR, TROPHS, PBNP #### [address] [address] Neutrophils/100 WBC (Bld) 67.7 % Normal 37.0-80.0 [facility] ([place]) Comment on above: Performed By: #### M DW, CBC, ADIFF, BMP, ANEU, GFR, TROPHS, PBNP #### [address] [address] .GFRon 01-04-2024 GFR 89 ml/min/1.73sqm Normal [facility] ([place]) Comment on above: Result Comment: GFR Population mean for , Non- Americans Ages 20-29 = 116 mL/min/1.73 sq.m. Ages 30-39 = 107 mL/min/1.73 sq.m. Ages 40-49 = 99 mL/min/1.73 sq.m. Ages 50-59 = 93 mL/min/1.73 sq.m. Ages 60-69 = 85 mL/min/1.73 sq.m. Ages 70+ = 75 mL/min/1.73 sq.m. Chronic Kidney Disease: Less than 60 mL/min/1.73 square meters End Stage Renal Disease: Less than 15 mL/min/1.73 square meters Performed By: #### M DW, CBC, ADIFF, BMP, ANEU, GFR, TROPHS, PBNP #### [address] [address] GFR Non- 73 ml/min/1.73sqm Normal [facility] ([place]) Comment on above: Result Comment: GFR Population mean for , Non- Americans Ages 20-29 = 116 mL/min/1.73 sq.m. Ages 30-39 = 107 mL/min/1.73 sq.m. Ages 40-49 = 99 mL/min/1.73 sq.m. Ages 50-59 = 93 mL/min/1.73 sq.m. Ages 60-69 = 85 mL/min/1.73 sq.m. Ages 70+ = 75 mL/min/1.73 sq.m. Chronic Kidney Disease: Less than 60 mL/min/1.73 square meters End Stage Renal Disease: Less than 15 mL/min/1.73 square meters Performed By: #### M DW, CBC, ADIFF, BMP, ANEU, GFR, TROPHS, PBNP #### [address] [address] .MDWon 01-04-2024 Monocyte Distribution Width 18.79 Normal 0.00-20.00 [facility] ([place]) Comment on above: Result Comment: For ED adult patients suspected of sepsis, MDW<=20.0 does not rule out sepsis or risk of sepsis Performed By: #### M DW, CBC, ADIFF, BMP, ANEU, GFR, TROPHS, PBNP #### [address] [address] .NEUABSon 01-04-2024 Neutrophil, Absolute 5.8 10 3/mcL Normal 2.9-6.2 [facility] ([place]) Comment on above: Performed By: #### M DW, CBC, ADIFF, BMP, ANEU, GFR, TROPHS, PBNP #### [address] [address] BMPon 01-04-2024 BUN/Creatinine Ratio 13 ratio Normal 7-27 [facility] ([place]) Comment on above: Performed By: #### M DW, CBC, ADIFF, BMP, ANEU, GFR, TROPHS, PBNP #### [address] [address] Calcium [Mass/Vol] 8.9 mg/dL Normal 8.4-10.2 [facility] ([place]) Comment on above: Performed By: #### M DW, CBC, ADIFF, BMP, ANEU, GFR, TROPHS, PBNP #### [address] [address] Chloride [Moles/Vol] 105 mmol/L Normal 98-107 [facility] ([place]) Comment on above: Performed By: #### M DW, CBC, ADIFF, BMP, ANEU, GFR, TROPHS, PBNP #### [address] [address] CO2 [Moles/Vol] 28 mmol/L Normal 22-29 [facility] ([place] Comment on above: Performed By: #### M DW, CBC, ADIFF, BMP, ANEU, GFR, TROPHS, PBNP #### [address] [address] Creatinine [Mass/Vol] 0.84 mg/dL Normal 0.55-1.02 [facility] ([place] Comment on above: Performed By: #### M DW, CBC, ADIFF, BMP, ANEU, GFR, TROPHS, PBNP #### [address] [address] Electrolyte Balance 8.0 mEq/L Normal 4.0-15.0 [facility] ([place]) Comment on above: Performed By: #### M DW, CBC, ADIFF, BMP, ANEU, GFR, TROPHS, PBNP #### [address] [address] Glucose [Mass/Vol] 116 mg/dL High 70-105 [facility] ([place]) Comment on above: Performed By: #### M DW, CBC, ADIFF, BMP, ANEU, GFR, TROPHS, PBNP #### [address] [address] Potassium [Moles/Vol] 4.0 mmol/L Normal 3.5-5.1 [facility]) Comment on above: Performed By: #### M DW, CBC, ADIFF, BMP, ANEU, GFR, TROPHS, PBNP #### [address] [address] Sodium [Moles/Vol] 141 mmol/L Normal 136-145 [facility] ([place] Comment on above: Performed By: #### M DW, CBC, ADIFF, BMP, ANEU, GFR, TROPHS, PBNP #### [address] [address] Urea nitrogen [Mass/Vol] 11 mg/dL Normal 7-18 [facility] ([place] Comment on above: Performed By: #### M DW, CBC, ADIFF, BMP, ANEU, GFR, TROPHS, PBNP #### [address] [address] CBCon 01-04-2024 Erythrocyte distribution width (RBC) [Ratio] 15.0 % High 11.5-14.5 [facility] ([place] Comment on above: Performed By: #### M DW, CBC, ADIFF, BMP, ANEU, GFR, TROPHS, PBNP #### [address] [address] Hematocrit (Bld) [Volume fraction] 43.7 % Normal 37.0-47.0 [facility] ([place] Comment on above: Performed By: #### M DW, CBC, ADIFF, BMP, ANEU, GFR, TROPHS, PBNP #### [place] [id number] Hgb 14.3 G/dL Normal 12.0-16.0 [facility] ([place] Comment on above: Performed By: #### M DW, CBC, ADIFF, BMP, ANEU, GFR, TROPHS, PBNP #### [address] [address] MCH (RBC) [Entitic mass] 30.0 pg Normal 27.0-31.2 [facility] ([place] Comment on above: Performed By: #### M DW, CBC, ADIFF, BMP, ANEU, GFR, TROPHS, PBNP #### [address] [address] MCHC 32.8 G/dL Low 33.0-37.0 [facility] ([place] Comment on above: Performed By: #### M DW, CBC, ADIFF, BMP, ANEU, GFR, TROPHS, PBNP #### [address] [address] MCV (RBC) [Entitic vol] 91.5 fL Normal 80.0-94.0 [facility] ([place] Comment on above: Performed By: #### M DW, CBC, ADIFF, BMP, ANEU, GFR, TROPHS, PBNP #### [place] [id number] Platelet 237 10 3/mcL Normal 130-400 [facility] ([place] Comment on above: Performed By: #### M DW, CBC, ADIFF, BMP, ANEU, GFR, TROPHS, PBNP #### [address] [address] Platelet mean volume (Bld) [Entitic vol] 7.2 fL Low 7.4-10.4 [facility] ([place] Comment on above: Performed By: #### M DW, CBC, ADIFF, BMP, ANEU, GFR, TROPHS, PBNP #### [address] [address] RBC 4.78 10 6/mcL Normal 4.20-5.40 [facility] ([place] Comment on above: Performed By: #### M DW, CBC, ADIFF, BMP, ANEU, GFR, TROPHS, PBNP #### [address] [address] WBC 8.6 10 3/mcL Normal 4.6-10.8 [facility] ([place] Comment on above: Performed By: #### M DW, CBC, ADIFF, BMP, ANEU, GFR, TROPHS, PBNP #### [address] [address] CNPNon 01-04-2024 CNPN Normal [facility] CT ANGIOGRAPHY CHEST W/CONTR Marcio 01-04-2024 CT ANGIOGRAPHY CHEST W/CONTRAST ORIGINAL EXAMINATION: CTA OF THE CHEST01/04/2024 6:14 pm HISTORY: ORDERING SYSTEM PROVIDED HISTORY: Reason for Exam: chest pain; suspect PE COMPARISON: CTA chest 02/19/2021 TECHNIQUE: A single series was obtained during the early arterial/pulmonary arterial phase of contrast enhancement. Multiplanar and 3D reconstructed images were generated, reviewed and manipulated on a separate workstation. This exam was performed according to our departmental dose-optimization program which includes automated exposure control, adjustment of the mA and/or kVp according to patient size and/or use of iterative reconstruction technique where applicable. FINDINGS: VASCULAR: Suboptimal evaluation due to bolus timing. The pulmonary arteries demonstrate no evidence of pulmonary embolus. No definite distension of the proximal pulmonary vasculature to indicate pulmonary hypertension. BONES: No acute osseous abnormalities. Mild degenerative changes of the spine. THYROID/AIRWAY: The visualized thyroid gland is unremarkable. Small amount of aerated secretions along the right posterior trachea. The mainstem bronchi appear patent. HEART: The heart is normal in size. No pericardial effusion. The great vessels are normal in course and caliber. LYMPH NODES: Borderline enlarged right hilar lymph nodes measuring up to 1.0 cm. No pathologically enlarged mediastinal, left hilar, or axillary lymph nodes are identified. LUNGS: Scattered pleuroparenchymal scarring. Ill-defined nodular density in the posterolateral right upper lobe measures to 0.5 cm (3; 65). Additional 0.4 cm nodule along the posterolateral right upper lobe (3; 74). 0.4 cm nodule along the posterior right upper lobe (3; 104) small triangular shaped pleural based density along the right minor fissure may represent intrapulmonary lymph node. Lingular atelectasis. 0.5 cm nodule along the medial left upper lobe (3; 111). No pleural effusion, or pneumothorax. ABDOMEN: The visualized portion of the upper abdomen is grossly unremarkable. IMPRESSION: No evidence of pulmonary embolus. New scattered nodular densities in the bilateral upper lobes measuring up to 0.5 cm. This may represent a mild or developing multifocal infectious/inflammatory process. Follow-up imaging after treatment is recommended to rule out underlying lesion. Mildly enlarged right hilar lymph nodes may be hyperplastic/reactive in nature. Attention on follow-up is recommended. I have personally reviewed the images and agree with the resident's findings and interpretation. Interpreted by: Maury Gallardo Preliminary Report By: Josue Del Toro Electronically signed By Maury Gallardo Dictated Date: 01/04/2024 6:18:25 PM Prelim Date: 01/04/2024 6:29:27 PM Sign Date: 01/04/2024 6:51:36 PM Ordering Provider: ROSA FARAH [facility] ([place]) LABORATORYOrdered By: SYSTEM SYSTEM on 01-04-2024 Basophil, Absolute 0.0 103/mcL Normal 0.0 - 0.2 10^3/mcL AO Workflow SS Basophils/100 WBC (Bld) 0.3 % Normal 0.0 - 2.5 % AO Workflow SS Calcium [Mass/Vol] 8.9 mg/dL Normal 8.4 - 10. 2 mg/dL AO ADM SS Chloride [Moles/Vol] 105 mmol/L Normal 98 - 10 7 mmol/L AO ADM SS CO2 [Moles/Vol] 28 mmol/L Normal 22 - 29 mmol/L AO ADM SS Creatinine [Mass/Vol] 0.84 mg/dL Normal 0.55 - 1.02 mg/dL AO ADM SS Electrolyte Balance 8.0 mEq/L Normal 4.0 - 15 .0 mEq/L AO ADM SS Eosinophil, Absolute 0.1 103/mcL Normal 0.0 - 0 .4 10^3/mcL AO Workflow SS Eosinophils/100 WBC (Bld) 0.9 % Normal 0.0 - 7.0 % AO Workflow SS Erythrocyte distribution width (RBC) [Ratio] 15.0 % High 11.5 - 14.5 % AO Workflow SS GFR/1.73 sq M.predicted among blacks MDRD (S/P/Bld) [Vol rate/Area] 89 ml/min/1.73sqm Invalid Interpretation Code AO Chemistry S Comment on above: Interpretive Data: GFR Population mean for , Non- Americans Ages 20-29 = 116 mL/min/1.73 sq.m. Ages 30-39 = 107 mL/min/1.73 sq.m. Ages 40-49 = 99 mL/min/1.73 sq.m. Ages 50-59 = 93 mL/min/1.73 sq.m. Ages 60-69 = 85 mL/min/1.73 sq.m. Ages 70+ = 75 mL/min/1.73 sq.m. Chronic Kidney Disease: Less than 60 mL/min/1.73 square meters End Stage Renal Disease: Less than 15 mL/min/1.73 square meters GFR/1.73 sq M.predicted among non-blacks MDRD (S/P/Bld) [Vol rate/Area] 73 ml/min/1.73sqm Invalid Interpretation Code AO Chemistry S Comment on above: Interpretive Data: GFR Population mean for , Non- Americans Ages 20-29 = 116 mL/min/1.73 sq.m. Ages 30-39 = 107 mL/min/1.73 sq.m. Ages 40-49 = 99 mL/min/1.73 sq.m. Ages 50-59 = 93 mL/min/1.73 sq.m. Ages 60-69 = 85 mL/min/1.73 sq.m. Ages 70+ = 75 mL/min/1.73 sq.m. Chronic Kidney Disease: Less than 60 mL/min/1.73 square meters End Stage Renal Disease: Less than 15 mL/min/1.73 square meters Glucose [Mass/Vol] 116 mg/dL High 70 - 105 mg/dL AO ADM SS Hematocrit (Bld) [Volume fraction] 43.7 % Normal 37.0 - 47.0 % AO Workflow SS Hemoglobin (Bld) [Mass/Vol] 14.3 G/dL Normal 12.0 - 16.0 G/dL AO Workflow SS Lymphocyte, Absolute 2.1 103/mcL Normal 0.8 - 3 .9 10^3/mcL AO Workflow SS Lymphocytes/100 WBC (Bld) 24.7 % Normal 10.0 - 50.0 % AO Workflow SS MCH (RBC) [Entitic mass] 30.0 pg Normal 27.0 - 31.2 pg AO Workflow SS MCHC 32.8 G/dL Low 33.0 - 37.0 G/dL AO Workflow SS MCV (RBC) [Entitic vol] 91.5 fL Normal 80.0 - 94.0 fL AO Workflow SS Monocyte distribution width Auto (Bld) [Entitic vol] 18.79 1 Normal 0.00 - 20.00 AO Workflow SS Comment on above: Result Comment: For ED adult patients suspected of sepsis, MDW<=20.0 does not rule out sepsis or risk of sepsis Monocyte, Absolute 0.5 103/mcL Normal 0.2 - 1.0 10^3/mcL AO Workflow SS Monocytes/100 WBC (Bld) 6.4 % Normal 1.7 - 13.0 % AO Workflow SS Natriuretic peptide.B prohormone N-Terminal [Mass/Vol] 11 pg/mL Normal 0 - 125 pg/mL AO ADM SS Comment on above: Interpretive Data: N T-proBNP results of less than 300 pg/mL effectively rules out acute congestive heart failure with 99% negative predictive value. Neutrophil, Absolute 5.8 103/mcL Normal 2.9 - 6 .2 10^3/mcL AO Workflow SS Neutrophils/100 WBC (Bld) 67.7 % Normal 37.0 - 80.0 % AO Workflow SS Platelet mean volume (Bld) [Entitic vol] 7.2 fL Low 7.4 - 10.4 fL AO Workflow SS Platelets (Bld) [#/Vol] 237 103/mcL Normal 130 - 400 10^3/mcL AO Workflow SS Potassium [Moles/Vol] 4.0 mmol/L Normal 3.5 - 5.1 mmol/L AO ADM SS RBC (Bld) [#/Vol] 4.78 106/mcL Normal 4.20 - 5.4 0 10^6/mcL AO Workflow SS Sodium [Moles/Vol] 141 mmol/L Normal 136 - 145 mmol/L AO ADM SS Troponin I.cardiac DL <= 0.01 ng/mL [Mass/Vol] ng/L Normal 0 - 51 ng/L AO ADM SS Comment on above: Interpretive Data: H igh Sensitive Troponin I Reference Ranges: Female: 0-51 ng/L Male: 0-76 ng/L Testing performed on [employer] using a homogeneous sandwich chemiluminescent immunoassay based on [employer] technology. Urea nitrogen [Mass/Vol] 11 mg/dL Normal 7 - 18 mg/dL AO ADM SS Urea nitrogen/Creatinine [Mass ratio] 13 ratio Normal 7 - 27 ratio AO ADM SS WBC (Bld) [#/Vol] 8.6 103/mcL Normal 4.6 - 10.8 10^3/mcL AO Workflow SS PBNPon 01-04-2024 Natriuretic peptide B (Bld) [Mass/Vol] 11 pg/mL Normal 0-125 [facility] ([place] Comment on above: Result Comment: NT-p roBNP results of less than 300 pg/mL effectively rules out acute congestive heart failure with 99% negative predictive value. Performed By: #### M DW, CBC, ADIFF, BMP, ANEU, GFR, TROPHS, PBNP #### [address] [address] [facility] High Sensitivity Troponin I <4 Normal 0-51 [facility] ([place]) Comment on above: Result Comment: High Sensitive Troponin I Reference Ranges: Female: 0-51 ng/L Male: 0-76 ng/L Testing performed on [employer] using a homogeneous sandwich chemiluminescent immunoassay based on [employer] technology. Performed By: #### M DW, CBC, ADIFF, BMP, ANEU, GFR, TROPHS, PBNP #### [address] [address] Basic metabolic 2000 panelon 01-03-2024 Anion gap [Moles/Vol] 11 mmol/L Normal 8-15 [facility] Comment on above: Order Comment: Speci men Type: BLOOD SPECIMENOrdering Facility: [facility] Address: [address] [place] [address] Performed By: #### 2 4321-2, 47961-1, 02454-7 ####[facility] LABCLIA [id number] [place] [address] [place] Calcium [Mass/Vol] 9.7 mg/dL Normal 8.5-10.2 [facility] Comment on above: Order Comment: Speci men Type: BLOOD SPECIMENOrdering Facility: [facility] Address: [address] [place] [address] Performed By: #### 2 4321-2, 46103-8, 16426-5 ####[facility] [place] LABCLIA [id number] [place] [address] [place] Chloride [Moles/Vol] 104 mmol/L Normal 98-107 [facility] Comment on above: Order Comment: Speci men Type: BLOOD SPECIMENOrdering Facility: [facility] Address: [address] [place] [address] Performed By: #### 2 4321-2, 28990-7, 34903-0 ####[facility] [place] LABCLIA [id number] [place] [address] [place] CO2 [Moles/Vol] 25 mmol/L Normal 22-30 [facility] Comment on above: Order Comment: Speci men Type: BLOOD SPECIMENOrdering Facility: [facility] Address: [address] [place] [address] Performed By: #### 2 4321-2, 93112-6, 89460-2 ####[facility] [place] LABCLIA [id number] [facility] [place] [address] [place] Creatinine [Mass/Vol] 0.77 mg/dL Normal 0.58-0.96 [facility] Comment on above: Order Comment: Rashad irwin Type: BLOOD SPECIMENOrdering Facility: [facility] Address: [address] [place] [address] Performed By: #### 2 4321-2, 23995-3, 16308-5 ####[facility] [place] LABCLIA [id number] [place] [address] [place] Creatinine and Glomerular filtration rate.predicted panel (S/P/Bld) 97 mL/min/1.73m??? Normal >=60 [facility] Comment on above: Order Comment: Rashad irwin Type: BLOOD SPECIMENOrdering Facility: [facility] Address: [address] [place] [address] Result Comment: Jen mated Glomerular Filtration Rate (eGFR) is calculated using the 2020 CKD-EPI creatinine equation. This equation utilizes serum creatinine, sex, and age as parameters. The creatinine assay has traceable calibration to isotope dilution-mass spectrometry. Refer to KDIGO guidelines for clinical interpretation. In patients with unstable renal function, e.g. those with acute kidney injury, the eGFR may not accurately reflect actual GFR. Performed By: #### 2 4321-2, , 75274-8 ####[facility] [place] LABCLIA [id number] [place] [address] [place] Glucose [Mass/Vol] 90 mg/dL Normal 74-99 [facility] Comment on above: Order Comment: Rashad irwin Type: BLOOD SPECIMENOrdering Facility: [facility] Address: [address] [place] [address] Result Comment: The [place] Diabetes [employer] (ADA) provides guidance for cutoff values for fasting glucose and random glucose. The ADA defines fasting as no caloric intake for at least 8 hours. Fasting plasma glucose results between 100 to 125 mg/dL indicate increased risk for diabetes (prediabetes).Fasting plasma glucose results greater than or equal to 126 mg/dL meet the criteria for diagnosis of diabetes. In the absence of unequivocal hyperglycemia, results should be confirmed by repeat testing. In a patient with classic symptoms of hyperglycemia or hyperglycemic crisis, random plasma glucose results greater than or equal to 200 mg/dL meet the criteria for diagnosis of diabetes.Reference: Standards of Medical Care in Diabetes 2016, [place] [employer] Association. Diabetes Care. 2016.39(Suppl 1). Performed By: #### 2 4321-2, , 02656-2 ####[facility] [place] LABCLIA [id number] [address] [address] [place] Potassium [Moles/Vol] 4.4 mmol/L Normal 3.7-5.1 [facility] Comment on above: Order Comment: Speci men Type: BLOOD SPECIMENOrdering Facility: [facility] Address: [address] [place] [address] Performed By: #### 2 4321-2, , 98423-3 ####[facility] [place] LABCLIA [id number] [place] [address] [place] Sodium [Moles/Vol] 140 mmol/L Normal 136-144 [facility] Comment on above: Order Comment: Speci men Type: BLOOD SPECIMENOrdering Facility: [facility] Address: [address] [place] [address] Performed By: #### 2 1-2, , 03804-3 ####[facility] [place] LABIA [id number] [place] [id number] [place] Urea nitrogen [Mass/Vol] 16 mg/dL Normal 7-21 [facility] Comment on above: Order Comment: Speci men Type: BLOOD SPECIMENOrdering Facility: [facility] Address: [address] [place] [address] Performed By: #### 2 4321-2, , 39438-0 ####[facility] [place] LABCLIA [id number] [address] [address] [place] CBC W Auto Differential pane l (Bld)on 01-03-2024 Basophils (Bld) [#/Vol] 0.04 10*3/uL [facility] Basophils/100 WBC (Bld) 0.4 % [facility] Differential cell count method Nom (Bld) Auto [facility] Eosinophils (Bld) [#/Vol] 0.06 10*3/uL [facility] Eosinophils/100 WBC (Bld) 0.6 % [facility] Erythrocyte distribution width (RBC) [Ratio] 14.2 % 11.5 - 15.0 % [facility] Hematocrit (Bld) [Volume fraction] 48.0 % High 36.0 - 46.0 % [facility] Hemoglobin (Bld) [Mass/Vol] 14.6 g/dL 11.5 - 15.5 g/dL [facility] Immature granulocytes (Bld) [#/Vol] 0.04 10*3/uL [facility] Immature granulocytes/100 WBC (Bld) 0.4 % [facility] Interpretation and review of laboratory results Abnormal [facility] Lymphocytes (Bld) [#/Vol] 2.70 10*3/uL [facility] Lymphocytes/100 WBC (Bld) 27.7 % [facility] MCH (RBC) [Entitic mass] 29.0 pg 26.0 - 34.[address] [facility] MCHC (RBC) [Mass/Vol] 30.4 g/dL Low 30.5 - 36.0 g/dL [facility] MCV (RBC) [Entitic vol] 95.2 fL 80.0 - 100.[address] [facility] Monocytes (Bld) [#/Vol] 0.59 10*3/uL [facility] Monocytes/100 WBC (Bld) 6.0 % [facility] Neutrophils (Bld) [#/Vol] 6.33 10*3/uL [facility] Neutrophils/100 WBC (Bld) 64.9 % [facility] Nucleated RBC (Bld) [#/Vol] [facility] Nucleated RBC/100 WBC (Bld) [Ratio] 0.0 % /[address] [facility] Platelet mean volume (Bld) [Entitic vol] 9.9 fL 9.0 - 12.[address] [facility] Platelets (Bld) [#/Vol] 262 10*3/uL [facility] RBC (Bld) [#/Vol] 5.04 10*6/uL 3.90 - 5.2 0 m/uL [facility] WBC (Bld) [#/Vol] 9.76 10*3/uL [facility] Basophils (Bld) [#/Vol] 0.04 10*3/uL Normal <0.11 [facility] Comment on above: Order Comment: Speci men Type: BLOOD SPECIMENOrdering Facility: [facility] Address: [address] [place] [address] Performed By: #### 5 7021-8 ####[facility] [place] LABCLIA [id number] [place] [address] [place] Basophils/100 WBC (Bld) 0.4 % Normal [facility] Comment on above: Order Comment: Speci men Type: BLOOD SPECIMENOrdering Facility: [facility] Address: [address] [place] [address] Performed By: #### 5 7021-8 ####[facility] LABCLIA [id number] [place] [address] [place] Differential cell count method Nom (Bld) Auto Normal [facility] Comment on above: Order Comment: Speci men Type: BLOOD SPECIMENOrdering Facility: [facility] Address: [address] [place] [address] Performed By: #### 5 7021-8 ####[facility] [place] LABCLIA [id number] [place] [address] [place] Eosinophils (Bld) [#/Vol] 0.06 10*3/uL Normal <0.46 [facility] Comment on above: Order Comment: Speci men Type: BLOOD SPECIMENOrdering Facility: [facility] Address: [address] [place] [address] Performed By: #### 5 7021-8 ####[facility] [place] LABCLIA [id number] [place] [address] [place] Eosinophils/100 WBC (Bld) 0.6 % Normal [facility] Comment on above: Order Comment: Speci men Type: BLOOD SPECIMENOrdering Facility: [facility] Address: [address] [place] [address] Performed By: #### 5 7021-8 ####[facility] [place] LABCLIA [id number] [place] [address] [place] Erythrocyte distribution width (RBC) [Ratio] 14.2 % Normal 11.5-15.0 [facility] Comment on above: Order Comment: Speci men Type: BLOOD SPECIMENOrdering Facility: [facility] Address: [address] [place] [address] Performed By: #### 5 7021-8 ####[facility] [place] LABIA [id number] [place] [address] [place] Hematocrit (Bld) [Volume fraction] 48.0 % High 36.0-46.0 [facility] Comment on above: Order Comment: Speci men Type: BLOOD SPECIMENOrdering Facility: [facility] Address: [address] [place] [address] Performed By: #### 5 7021-8 ####[facility] LABIA [id number] [place] [address] [place] Hemoglobin (Bld) [Mass/Vol] 14.6 g/dL Normal 11.5-15.5 [facility] Comment on above: Order Comment: Speci men Type: BLOOD SPECIMENOrdering Facility: [facility] Address: [address] [place] [address] Performed By: #### 5 7021-8 ####[facility] [place] LABCLIA [id number] [place] [address] [place] Immature granulocytes (Bld) [#/Vol] 0.04 10*3/uL Normal <0.10 [facility] Comment on above: Order Comment: Speci men Type: BLOOD SPECIMENOrdering Facility: [facility] Address: [address] [place] [address] Performed By: #### 5 7021-8 ####[facility] [place] LABCLIA [id number] [place] [address] [place] Immature granulocytes/100 WBC (Bld) 0.4 % Normal [facility] Comment on above: Order Comment: Speci men Type: BLOOD SPECIMENOrdering Facility: [facility] Address: [address] [place] [address] Performed By: #### 5 7021-8 ####[facility] [facility] [id number] [place] [address] [place] Lymphocytes (Bld) [#/Vol] 2.70 10*3/uL Normal 1.00-4.00 [facility] Comment on above: Order Comment: Speci men Type: BLOOD SPECIMENOrdering Facility: [facility] Address: [address] [place] [address] Performed By: #### 5 7021-8 ####[facility] [id number] [place] [address] [place] Lymphocytes/100 WBC (Bld) 27.7 % Normal [facility] Comment on above: Order Comment: Speci men Type: BLOOD SPECIMENOrdering Facility: [facility] Address: [address] [place] [address] Performed By: #### 5 7021-8 ####[facility] [id number] [place] [address] [place] MCH (RBC) [Entitic mass] 29.0 pg Normal 26.0-34.0 [facility] Comment on above: Order Comment: Speci men Type: BLOOD SPECIMENOrdering Facility: [facility] Address: [address] [place] [address] Performed By: #### 5 7021-8 ####[facility] [id number] [place] [address] [place] MCHC (RBC) [Mass/Vol] 30.4 g/dL Low 30.5-36.0 [facility] Comment on above: Order Comment: Speci men Type: BLOOD SPECIMENOrdering Facility: [facility] Address: [address] [place] [address] Performed By: #### 5 7021-8 ####[facility] [id number] [place] [address] [place] MCV (RBC) [Entitic vol] 95.2 fL Normal 80.0-100.0 [facility] Comment on above: Order Comment: Speci men Type: BLOOD SPECIMENOrdering Facility: [facility] Address: [address] [place] [address] Performed By: #### 5 7021-8 ####[facility] [id number] [place] [address] [place] Monocytes (Bld) [#/Vol] 0.59 10*3/uL Normal <0.87 [facility] Comment on above: Order Comment: Speci men Type: BLOOD SPECIMENOrdering Facility: [facility] Address: [address] [place] [address] Performed By: #### 5 7021-8 ####[facility] [id number] [place] [address] [place] Monocytes/100 WBC (Bld) 6.0 % Normal [facility] Comment on above: Order Comment: Speci men Type: BLOOD SPECIMENOrdering Facility: [facility] Address: [address] [place] [address] Performed By: #### 5 7021-8 ####[facility] [id number] [place] [address] [place] Neutrophils (Bld) [#/Vol] 6.33 10*3/uL Normal 1.45-7.50 [facility] Comment on above: Order Comment: Speci men Type: BLOOD SPECIMENOrdering Facility: [facility] Address: [address] [place] [address] Performed By: #### 5 7021-8 ####[facility] [id number] [place] [address] [place] Neutrophils/100 WBC (Bld) 64.9 % Normal [facility] Comment on above: Order Comment: Speci men Type: BLOOD SPECIMENOrdering Facility: [facility] Address: [address] [place] [address] Performed By: #### 5 7021-8 ####[facility] [id number] [place] [address] [place] Nucleated RBC (Bld) [#/Vol] 10*3/uL Normal <0.01 [facility] Comment on above: Order Comment: Speci men Type: BLOOD SPECIMENOrdering Facility: [facility] Address: [address] [place] [address] Performed By: #### 5 7021-8 ####[facility] [id number] [place] [address] [place] Nucleated RBC/100 WBC (Bld) [Ratio] 0.0 /100 WBC Normal [facility] Comment on above: Order Comment: Speci men Type: BLOOD SPECIMENOrdering Facility: [facility] Address: [address] [place] [address] Performed By: #### 5 7021-8 ####[facility] [id number] [place] [address] [place] Platelet mean volume (Bld) [Entitic vol] 9.9 fL Normal 9.0-12.7 [facility] Comment on above: Order Comment: Speci men Type: BLOOD SPECIMENOrdering Facility: [facility] Address: [address] [place] [address] Performed By: #### 5 7021-8 ####[facility] [id number] [place] [address] [place] Platelets (Bld) [#/Vol] 262 10*3/uL Normal 150-400 [facility] Comment on above: Order Comment: Speci men Type: BLOOD SPECIMENOrdering Facility: [facility] Address: [address] [place] [address] Performed By: #### 5 7021-8 ####[facility] [id number] [place] [address] [place] RBC (Bld) [#/Vol] 5.04 10*6/uL Normal 3.90-5.20 [facility] Comment on above: Order Comment: Speci men Type: BLOOD SPECIMENOrdering Facility: [facility] Address: [address] [place] [address] Performed By: #### 5 7021-8 ####[facility] [id number] [place] [address] [place] WBC (Bld) [#/Vol] 9.76 10*3/uL Normal 3.70-11.00 [facility] Comment on above: Order Comment: Speci men Type: BLOOD SPECIMENOrdering Facility: [facility] Address: [address] [place] [address] Performed By: #### 5 7021-8 ####[facility] LABIA [id number] [place] [address] [place] CNOVon 01-03-2024 CNOV Normal [facility] D dimer FEU PPP-mCncon 01-02 Fibrin D-dimer FEU (PPP) [Mass/Vol] 970 ng/mL FEU High <500 [facility] Comment on above: Order Comment: Speci men Type: BLOOD SPECIMENOrdering Facility: [facility] Address: [address] [place] [address] Result Comment: Noe en Plasma Aliquot Performed By: #### 4 8065-7 ####[facility] [id number] [place] [address] [place] D-DIMEROrdered By: Vance Soriano on 01-03-2024 Fibrin D-dimer FEU (PPP) [Mass/Vol] [address] [facility] Comment on above: Frozen Plasma Aliquo t ECG COMPLETEon 01-03-2024 Atrial Rate [address] [facility] Calculated P [place] 51 degrees [facility] Calculated R [place] 48 degrees [facility] Calculated T [place] 35 degrees [facility] P-R Interval [address] [facility] QRS Duration [address] [facility] QT Interval [address] [facility] QTC Calculation (Bazett) [address] [facility] Ventricular Rate 75 BPM [facility] NORMAL SINUS RHYTHM NORMAL ECG Confirmed by MD THOMPSON QARAB ([id number]) on 01/03/2024 4:19:53 [facility] NAME : DARREN REINOSO PID : [id number] : 1980 Gender : Female Race : ORD : [id number] Procedure Date : Jan 03 2024 12:31:49 Edit Date : Jan 03 2024 16:20:00 Diagnosis: NORMAL SINUS RHYTHM NORMAL ECG Confirmed by MD THOMPSON QARAB ([id number]) on 01/03/2024 4:19:53 PM Test Reason : R07.9 Chest pain, unspecified type Location : 185 : WO Overread By : MD THOMPSON QARAB Edited By : MD THOMPSON QARAB Referred By : , Acquired by : , [facility] ECG COMPLETE Normal [facility] Fibrin D-dimer FEU (PPP) [Ma ss/Vol]Ordered By: Vance Grover on 01-03-2024 Interpretation and review of laboratory results Abnormal [facility] 500 ng/mL FEU is the D Dimer cutoff to exclude DVT (deep vein thrombosis) and PE (pulmonary embolism) in patients with a low pre test probability. Supplemental Comment: In patients over 50 years with a low pre test probability for DVT and/or PE, an age adjusted D dimer cutoff can be calculated as [age x 10] ng/mL FEU. For example, a patient of 88 years would have an age adjusted D dimer cutoff of 880 ng/mL FEU. For patients with a suspected DVT, a D dimer level below 500 ng/mL FEU has a negative predictive value of >98.9%, a sensitivity of >96.9% and a specificity of >35.7%. For patients with a suspected PE, a D dimer level below 500 ng/mL FEU has a negative predictive value of >98.5%, and a sensitivity of >96.5% and a specificity of >38.8%. Reference: Agnes M, et al. CONNIE 2014 311:1117 and Emil Beatty N et al. Odette Int Med 2016 165:253. [facility] Magnesium SerPl-mCncon 01-02 Magnesium [Mass/Vol] 2.1 mg/dL Normal 1.7-2.3 [facility] Comment on above: Order Comment: Rashad irwin Type: BLOOD SPECIMENOrdering Facility: [facility] Address: [address] [place] [address] Performed By: #### 2 4321-2, 97884-4, 55300-3 ####[facility] [id number] [address] [place] NT-proBNP [facility] 01-02 Natriuretic peptide.B prohormone N-Terminal [Mass/Vol] <36 Normal <125 [facility] Comment on above: Order Comment: Rashad irwin Type: BLOOD SPECIMENOrdering Facility: [facility] Address: [address] [place] [address] Performed By: #### 2 4321-2, 83778-5, 09361-7 ####[facility] [id number] [place] [address] [place] XR CHEST 2V FRONTAL/LATon XR CHEST 2V FRONTAL/LAT Normal [facility] XR Chest PA and Lateralon IMPRESSION: No acute radiographic abnormality. Quality Improvement Consultant: PSCB Transcribe Date/Time: Jan 03 2024 3:55P Dictated by : DELIO CALDWELL MD This examination was interpreted and the report reviewed and electronically signed by: DELIO CALDWELL MD on Jan 03 2024 3:55PM [facility] DIVISION OF RADIOLOGY * * *Final Report* * * DATE OF EXAM: Jan 03 2024 2:29PM WOX 5291 - XR CHEST 2V FRONTAL/LAT / PROCEDURE REASON: multiple diagnoses * * * * Physician Interpretation * * * * EXAMINATION: CHEST RADIOGRAPH (2 VIEW FRONTAL & LATERAL) CLINICAL HISTORY: Chest pain, unspecified type Shortness of breath MQ: XC2_6 EXAM DATE/TIME: 01/03/2024 2:29 PM COMPARISON: Chest x-ray on 07/09/2023 RESULT: Lines, tubes, and devices: None. Lungs and pleura: No consolidation. No lung mass. No pleural effusion. No pneumothorax. Left-sided large pericardial fat pad is visualized. Cardiomediastinal silhouette: Normal cardiomediastinal silhouette. Bones and soft tissues: The spine shows degenerative changes. DIVISION OF RADIOLOGY Provider, Latisha Viramontes - 01/03/2024 * * *Final Report* * * DATE OF EXAM: Jan 03 2024 2:29PM WOX 5291 - XR CHEST 2V FRONTAL/LAT / PROCEDURE REASON: multiple diagnoses * * * * Physician Interpretation * * * * EXAMINATION: CHEST RADIOGRAPH (2 VIEW FRONTAL & LATERAL) CLINICAL HISTORY: Chest pain, unspecified type Shortness of breath MQ: XC2_6 EXAM DATE/TIME: 01/03/2024 2:29 PM COMPARISON: Chest x-ray on 07/09/2023 RESULT: Lines, tubes, and devices: None. Lungs and pleura: No consolidation. No lung mass. No pleural effusion. No pneumothorax. Left-sided large pericardial fat pad is visualized. Cardiomediastinal silhouette: Normal cardiomediastinal silhouette. Bones and soft tissues: The spine shows degenerative changes. IMPRESSION IMPRESSION: No acute radiographic abnormality. Quality Improvement Consultant: SARWAT Transcribe Date/Time: Jan 03 2024 3:55P Dictated by : DELIO CALDWELL MD This examination was interpreted and the report reviewed and electronically signed by: DELIO CALDWELL MD on Jan 03 2024 3:55PM EST [facility] Radiology Study observation (narrative) [facility] XR Chest PA and LateralOrder ed By: Ccf Provider on 01-03-2024 [facility] No Panel Informationon 11-22 IMPRESSION: Hepatic steatosis. Nonenlarged spleen. Quality Improvement Consultant: PSCB Transcribe Date/Time: Nov 23 2023 11:03A Dictated by : GHAZALA HAQ MD This examination was interpreted and the report reviewed and electronically signed by: GHAZALA HAQ MD on Nov 23 2023 11:06AM [facility] RADIOLOGY No Panel InformationOrdered By: Ccf Provider on 11-23-2023 [facility] US Abdomen RUQon 11-23-2023 * * *Final Report* * * DATE OF EXAM: Nov 23 2023 10:57AM U 1032 - US ABD RIGHT UPPER QUADRANT / PROCEDURE REASON: multiple diagnoses * * * * Physician Interpretation * * * * EXAMINATION: RIGHT UPPER QUADRANT AND SPLEEN ULTRASOUND CLINICAL HISTORY: Epigastric pain. TECHNIQUE: Sonography of the right upper quadrant and spleen was performed. Images were obtained and stored in a permanent archive. MQ: URUQ_2 COMPARISON: 03/30/2022. RESULT: Limitations: Patient body habitus. Pancreas: Normal sonographic appearance. Portions obscured: tail Liver: Portions of the liver visualized intercostally precluding detailed assessment. Echotexture: Normal, homogeneous. Echogenicity: Increased Surface contour: Smooth Lesions: None visualized. Biliary: No intrahepatic biliary duct dilation. CBD: 0.5 cm at the hilum. Gallbladder: Normal caliber -Contents: No cholelithiasis -Wall: Normal -Other: No pericholecystic fluid. Right Kidney: No hydronephrosis. Ascites: None. Spleen: The craniocaudal length of the spleen is 12.0 cm, normal. There are no splenic lesions. [facility] RADIOLOGY Provider, Latisha Viramontes - 11/23/2023 * * *Final Report* * * DATE OF EXAM: Nov 23 2023 10:57AM RMU 1032 - US ABD RIGHT UPPER QUADRANT / PROCEDURE REASON: multiple diagnoses * * * * Physician Interpretation * * * * EXAMINATION: RIGHT UPPER QUADRANT AND SPLEEN ULTRASOUND CLINICAL HISTORY: Epigastric pain. TECHNIQUE: Sonography of the right upper quadrant and spleen was performed. Images were obtained and stored in a permanent archive. MQ: URUQ_2 COMPARISON: 03/30/2022. RESULT: Limitations: Patient body habitus. Pancreas: Normal sonographic appearance. Portions obscured: tail Liver: Portions of the liver visualized intercostally precluding detailed assessment. Echotexture: Normal, homogeneous. Echogenicity: Increased Surface contour: Smooth Lesions: None visualized. Biliary: No intrahepatic biliary duct dilation. CBD: 0.5 cm at the hilum. Gallbladder: Normal caliber -Contents: No cholelithiasis -Wall: Normal -Other: No pericholecystic fluid. Right Kidney: No hydronephrosis. Ascites: None. Spleen: The craniocaudal length of the spleen is 12.0 cm, normal. There are no splenic lesions. IMPRESSION IMPRESSION: Hepatic steatosis. Nonenlarged spleen. Quality Improvement Consultant: PSCB Transcribe Date/Time: Nov 23 2023 11:03A Dictated by : GHAZALA HAQ MD This examination was interpreted and the report reviewed and electronically signed by: GHAZALA HAQ MD on Nov 23 2023 11:06AM EST [facility] Radiology Study observation (narrative) [facility] US Spleenon 11-23-2023 * * *Final Report* * * DATE OF EXAM: Nov 23 2023 10:57AM U 1039 - US ABD SPLEEN / PROCEDURE REASON: multiple diagnoses * * * * Physician Interpretation * * * * EXAMINATION: RIGHT UPPER QUADRANT AND SPLEEN ULTRASOUND CLINICAL HISTORY: Epigastric pain. TECHNIQUE: Sonography of the right upper quadrant and spleen was performed. Images were obtained and stored in a permanent archive. MQ: URUQ_2 COMPARISON: 03/30/2022. RESULT: Limitations: Patient body habitus. Pancreas: Normal sonographic appearance. Portions obscured: tail Liver: Portions of the liver visualized intercostally precluding detailed assessment. Echotexture: Normal, homogeneous. Echogenicity: Increased Surface contour: Smooth Lesions: None visualized. Biliary: No intrahepatic biliary duct dilation. CBD: 0.5 cm at the hilum. Gallbladder: Normal caliber -Contents: No cholelithiasis -Wall: Normal -Other: No pericholecystic fluid. Right Kidney: No hydronephrosis. Ascites: None. Spleen: The craniocaudal length of the spleen is 12.0 cm, normal. There are no splenic lesions. [facility] Provider, Latisha Viramontes - 11/23/2023 * * *Final Report* * * DATE OF EXAM: Nov 23 2023 10:57AM RMU 1039 - US ABD SPLEEN / PROCEDURE REASON: multiple diagnoses * * * * Physician Interpretation * * * * EXAMINATION: RIGHT UPPER QUADRANT AND SPLEEN ULTRASOUND CLINICAL HISTORY: Epigastric pain. TECHNIQUE: Sonography of the right upper quadrant and spleen was performed. Images were obtained and stored in a permanent archive. MQ: URUQ_2 COMPARISON: 03/30/2022. RESULT: Limitations: Patient body habitus. Pancreas: Normal sonographic appearance. Portions obscured: tail Liver: Portions of the liver visualized intercostally precluding detailed assessment. Echotexture: Normal, homogeneous. Echogenicity: Increased Surface contour: Smooth Lesions: None visualized. Biliary: No intrahepatic biliary duct dilation. CBD: 0.5 cm at the hilum. Gallbladder: Normal caliber -Contents: No cholelithiasis -Wall: Normal -Other: No pericholecystic fluid. Right Kidney: No hydronephrosis. Ascites: None. Spleen: The craniocaudal length of the spleen is 12.0 cm, normal. There are no splenic lesions. IMPRESSION IMPRESSION: Hepatic steatosis. Nonenlarged spleen. Quality Improvement Consultant: [facility] Transcribe Date/Time: Nov 23 2023 11:03A Dictated by : GHAZALA HAQ MD This examination was interpreted and the report reviewed and electronically signed by: GHAZALA HAQ MD on Nov 23 2023 11:06AM EST [facility] Radiology Study observation (narrative) [facility] AMYLASEon 11-16-2023 Amylase [Catalytic activity/Vol] 29 U/L Low 30 - 104 U/L [facility] Comprehensive metabolic 2000 panelon 11-16-2023 Albumin [Mass/Vol] 3.9 g/dL 3.9 - 4.9 g/dL [facility] ALP [Catalytic activity/Vol] 104 U/L 34 - 123 U/L [facility] ALT [Catalytic activity/Vol] 43 U/L High 7 - 38 U/L [facility] Anion gap [Moles/Vol] 10 mmol/L 8 - 15 mmol/L [facility] AST [Catalytic activity/Vol] 27 U/L 13 - 35 U/L [facility] Bilirubin [Mass/Vol] 0.3 mg/dL 0.2 - 1 .3 mg/dL [facility] Calcium [Mass/Vol] 9.4 mg/dL 8.5 - 10. 2 mg/dL [facility] Chloride [Moles/Vol] 106 mmol/L 98 - 10 7 mmol/L [facility] CO2 [Moles/Vol] 24 mmol/L 22 - 30 mmol/L [facility] Creatinine [Mass/Vol] 0.73 mg/dL 0.58 - 0.96 mg/dL [facility] GFR/1.73 sq M.predicted among non-blacks MDRD (S/P/Bld) [Vol rate/Area] 104 mL/min/{1.73_m2} - PINF [facility] Comment on above: Estimated Glomerular Filtration Rate (eGFR) is calculated using the 2020 CKD-EPI creatinine equation. This equation utilizes serum creatinine, sex, and age as parameters. The creatinine assay has traceable calibration to isotope dilution-mass spectrometry. Refer to KDIGO guidelines for clinical interpretation. In patients with unstable renal function, e.g. those with acute kidney injury, the eGFR may not accurately reflect actual GFR. Glucose [Mass/Vol] 103 mg/dL High 74 - 99 mg/dL [facility] Comment on above: The [place] Diabete s Association (ADA) provides guidance for cutoff values for fasting glucose and random glucose. The ADA defines fasting as no caloric intake for at least 8 hours. Fasting plasma glucose results between 100 to 125 mg/dL indicate increased risk for diabetes (prediabetes). Fasting plasma glucose results greater than or equal to 126 mg/dL meet the criteria for diagnosis of diabetes. In the absence of unequivocal hyperglycemia, results should be confirmed by repeat testing. In a patient with classic symptoms of hyperglycemia or hyperglycemic crisis, random plasma glucose results greater than or equal to 200 mg/dL meet the criteria for diagnosis of diabetes. Reference: Standards of Medical Care in Diabetes 2016, [place] Diabetes Association. Diabetes Care. 2016.39(Suppl 1). Potassium [Moles/Vol] 4.1 mmol/L 3.7 - 5.1 mmol/L [facility] Protein [Mass/Vol] 6.8 g/dL 6.3 - 8.0 g/dL [facility] Sodium [Moles/Vol] 140 mmol/L 136 - 144 mmol/L [facility] Urea nitrogen [Mass/Vol] 10 mg/dL 7 - 21 mg/dL [facility] LIPASEon 11-16-2023 Lipase [Catalytic activity/Vol] 13 U/L Low 16 - 61 U/L [facility] No Panel Informationon 11-15 Interpretation and review of laboratory results Abnormal [facility] CBC W Auto Differential pane l (Bld)on 11-15-2023 Basophils (Bld) [#/Vol] 0.03 10*3/uL [facility] Basophils/100 WBC (Bld) 0.3 % [facility] Differential cell count method Nom (Bld) Auto [facility] Eosinophils (Bld) [#/Vol] 0.07 10*3/uL [facility] Eosinophils/100 WBC (Bld) 0.8 % [facility] Erythrocyte distribution width (RBC) [Ratio] 13.9 % 11.5 - 15.0 % [facility] Hematocrit (Bld) [Volume fraction] 45.2 % 36.0 - 46.0 % [facility] Hemoglobin (Bld) [Mass/Vol] 13.9 g/dL 11.5 - 15.5 g/dL [facility] Immature granulocytes (Bld) [#/Vol] 0.08 10*3/uL [facility] Immature granulocytes/100 WBC (Bld) 0.9 % [facility] Lymphocytes (Bld) [#/Vol] 2.59 10*3/uL [facility] Lymphocytes/100 WBC (Bld) 28.3 % [facility] MCH (RBC) [Entitic mass] 29.2 pg 26.0 - 34.[address] [facility] MCHC (RBC) [Mass/Vol] 30.8 g/dL 30.5 - 36.0 g/dL [facility] MCV (RBC) [Entitic vol] 95.0 fL 80.0 - 100.[address] [facility] Monocytes (Bld) [#/Vol] 0.64 10*3/uL [facility] Monocytes/100 WBC (Bld) 7.0 % [facility] Neutrophils (Bld) [#/Vol] 5.74 10*3/uL [facility] Neutrophils/100 WBC (Bld) 62.7 % [facility] Nucleated RBC (Bld) [#/Vol] [facility] Nucleated RBC/100 WBC (Bld) [Ratio] 0.0 % /[address] [facility] Platelet mean volume (Bld) [Entitic vol] 10.0 fL 9.0 - 12.[address] [facility] Platelets (Bld) [#/Vol] 232 10*3/uL [facility] RBC (Bld) [#/Vol] 4.76 10*6/uL 3.90 - 5.2 0 m/uL [facility] WBC (Bld) [#/Vol] 9.15 10*3/uL [facility] Urinalysis complete panel (U )on 11-15-2023 Bacteria LM.HPF (Urine sed) [#/Area] Negative Negative /HPF [facility] Bilirubin Ql (U) Negative Negative [facility] Clarity (Unsp spec) Clear Clear [facility] Color (U) Yellow Yellow [facility] Epithelial cells LM.HPF (Urine sed) [#/Area] None Seen /HPF [facility] Glucose Test strip (U) [Mass/Vol] Negative Negative [facility] Hemoglobin Ql (U) Negative Negative [facility] Hyaline casts (Urine sed) [#/Area] 0 /[LPF] 0 /LPF [facility] Ketones Ql (U) Negative Negative [facility] Leukocyte esterase Test strip Ql (U) Negative Negative [facility] Nitrite Ql (U) Negative Negative [facility] pH (U) 6.5 [pH] NINF - 8.5 [facility] Protein (U) [Mass/Vol] Negative Negative [facility] RBC LM.HPF (Urine sed) [#/Area] 0-2 /HPF 0-2 /HPF [facility] Specific gravity (U) [Rel density] 1.009 1.005 - 1.030 [facility] Urobilinogen Ql (U) 0.2 EU/dL 0.2-1.0 EU/dL [facility] WBC LM.HPF (Urine sed) [#/Area] 0-5 /HPF 0-5 /HPF [facility] This test was devjackio ped and its performance characteristics determined by [facility]'s Yoseph Meyers [facility] [place] ([facility]). It has not been cleared or approved by the FDA. [facility] is regulated under CLIA as qualified to perform high-complexity testing. This test is used for clinical purposes. It should not be regarded as investigational or for research. [facility] Pulmonary Visit Reporton Pulmonary Visit Report [place] [facility] [address] [place] [address] OFFICE VISIT Date of Service: 11/04/23 MR#: [id number] Acct: [id number] Name: DARREN REINOSO Rep #: [id number] : 1980 Provider: RAMON Regalado Age/Sex: 43/F Location: [facility] [place] Status: Signed Assessment and Plan Assessment and Plan (1) Asthma: Status: Chronic Qualifiers: Asthma complication type: unspecified Asthma persistence: unspecified Asthma severity: unspecified severity Qualified Code(s): J45.909 - Unspecified asthma, uncomplicated Plan: Deteriorated, I do not believe that she is in exacerbation today, however, symptoms are not controlled likely due to the fact that she is not on a current maintenance inhaler. I am going to discontinue Symbicort and try placing her on Breo. Breo is 1 puff daily, I anticipate that she will be more likely to be compliant with the complete recommended daily dose if it is only 1 puff daily. She is to continue rinsing her mouth out after each use. No indication for antibiotics or steroids today. No additional testing at this time. I did suggest repeating a pulmonary function test, however the patient declined. She states that she does not like that albuterol treatment they give me. Follow-up in the office in 6 months. Contact the office with any new or worsening symptoms in the meantime. (2) Morbid obesity with BMI of 50.0-59.9, adult: Status: Chronic Plan: Deteriorated. The patient has had some weight gain since last office visit. Continue to encourage healthy weight loss. (3) EAMON (obstructive sleep apnea): Status: Chronic Comment: AHI 37.4 treated with CPAP 11 cm of water, residual AHI 0.2 Plan: She is using and benefiting from Pap therapy. No indication for titration study at this time. Continue to encourage weight loss. Contact the office for any new or worsening symptoms in the meantime. Follow-up in 6 months. Medications: New fluticasone furoate-vilanterol 200-25 mcg/dose (Breo Ellipta) after inhalation, rinse mouth with water and spit out; do not swallow 1 inh inhalation QDAY 60 ea 6RF Discontinued budesonide-formoterol 160-4.5 mcg/actuation (Symbicort) administer with spacer, rinse mouth after each use Discontinued Reason: Order Changed 2 puffs inhalation BID 1 ea 6RF Plan Details Goals Barriers: Goals Decrease pain and radiculopathy Barriers Obesity Follow Up: 6 Months ([facility]) HPI 6 M FU Chief Complaint: Routine follow-up HPI Comments Details: This patient presents to the office today for follow-up of her asthma and obstructive sleep apnea. She is ambulatory and currently on room air. She has not recently been seen in the ED or urgent care for any respiratory illness. She has not required any antibiotics or prednisone for any breathing problems. She reports that she has not been consistent with taking Symbicort. She reports that she does not like it and that it tastes bad. She has not been utilizing albuterol. She is currently smoking a pack a day. She reports her shortness of breath seems to be getting worse. She also reports that she does not tolerate hot humid temperatures well. She has an occasional cough productive of clear foamy sputum. She denies any hemoptysis. She has not had any fever, chills or body aches. She does report wheezing, seems to be more prevalent in the morning. She has not had any chest pain or palpitations. She does report occasional chest tightness. She reports waking up feeling rested with the use of her Pap device. She admits that she is not getting as much sleep lately as she has been, this is due to situational stress. She denies excessive nocturia. She is not requiring naps. She denies difficulty with dry mouth or morning headaches. Compliance report for the past 30 days shows 100% compliance with average use of 6 hours and 50 minutes per night. Current setting is CPAP 11 cmH2O with residual AHI 0.3 events per hour. Leaks do not appear to be problematic. Intake Vital Signs 05/13/23 06:03 11/04/23 12:15 Height 5 ft 3 in 5 ft 3 in Weight: 313 lb 316 lb BMI 55.4 56.0 BP 151/93 H 127/73 H Blood Pressure Location Lt radial Lt brachial Position Sitting Sitting Respiration 18 18 Pulse 92 80 Pulse Source Monitor Monitor Temp 97.7 F L 98.4 F Temperature Source Temporal Artery Temporal Artery Pulse Oximetry (%) 93 92 Oxygen Delivery Method room air room air Intake Visit Reasons: 6 M FU Apricot Packer Required: No DME Vendor: [employer] Accompanied by: Self Is patient in pain?: Yes (Chest) Pain scale (1-10): 5 Allergies codeine Allergy (Verified 11/04/23 13:48) Anaphylaxis nirmatrelvir (From Paxlovid) Allergy (Verified 11/04/23 13:48) Vomiting propoxyphene napsylate (From Darvocet-N) Allergy (Verifie (more content not included)... Normal [facility] XR Chest PA and Lateralon IMPRESSION: No acute radiographic abnormality. Quality Improvement Consultant: PSCB Transcribe Date/Time: Jul 09 2023 3:43P Dictated by : DELIO CALDWELL MD This examination was interpreted and the report reviewed and electronically signed by: DELIO CALDWELL MD on Jul 09 2023 3:43PM [facility] DIVISION OF RADIOLOGY * * *Final Report* * * DATE OF EXAM: Jul 09 2023 3:37PM WOX 5291 - XR CHEST 2V FRONTAL/LAT / PROCEDURE REASON: Acute cough * * * * Physician Interpretation * * * * EXAMINATION: CHEST RADIOGRAPH (2 VIEW FRONTAL & LATERAL) CLINICAL HISTORY: Acute cough MQ: XC2_6 EXAM DATE/TIME: 07/09/2023 3:37 PM COMPARISON: Chest x-ray on 04/21/2023 RESULT: Lines, tubes, and devices: None. Lungs and pleura: No consolidation. No lung mass. No pleural effusion. No pneumothorax. Cardiomediastinal silhouette: Stable cardiomediastinal silhouette. Bones and soft tissues: There are degenerative changes in the spine. DIVISION OF RADIOLOGY Provider, [facility] - 07/09/2023 * * *Final Report* * * DATE OF EXAM: Jul 09 2023 3:37PM WOX 5291 - XR CHEST 2V FRONTAL/LAT / PROCEDURE REASON: Acute cough * * * * Physician Interpretation * * * * EXAMINATION: CHEST RADIOGRAPH (2 VIEW FRONTAL & LATERAL) CLINICAL HISTORY: Acute cough MQ: XC2_6 EXAM DATE/TIME: 07/09/2023 3:37 PM COMPARISON: Chest x-ray on 04/21/2023 RESULT: Lines, tubes, and devices: None. Lungs and pleura: No consolidation. No lung mass. No pleural effusion. No pneumothorax. Cardiomediastinal silhouette: Stable cardiomediastinal silhouette. Bones and soft tissues: There are degenerative changes in the spine. IMPRESSION IMPRESSION: No acute radiographic abnormality. Quality Improvement Consultant: SARWAT Transcribe Date/Time: Jul 09 2023 3:43P Dictated by : DELIO CALDWELL MD This examination was interpreted and the report reviewed and electronically signed by: DELIO CALDWELL MD on Jul 09 2023 3:43PM EST [facility] Radiology Study observation (narrative) [facility] XR Chest PA and LateralOrder ed By: Ccf Provider on 07-09-2023 [facility] Basophil percentageOrdered B y: Kamron Reza on 05-13-2023 Creatinine [Mass/Vol] 1.1 mg/dL 0.55-1.02 [facility] CREATININE FINGERSTICKon Creatinine [Mass/Vol] 1.1 mg/dL High 0.55-1.02 [facility] Comment on above: Performed By: #### L 9100.0200 #### [facility] [address] [place], [address] GFR/1.73 sq M.predicted among non-blacks MDRD (S/P/Bld) [Vol rate/Area] 58.0000 mL/min/{1.73_m2} Low >60 [facility] Comment on above: Performed By: #### L 9100.0200 #### [facility] [address] [place], [address] CTA Chest W/WO Contraston CTA Chest W/WO Contrast [facility] Imaging Services [address] [place] [address] CTA Chest W/WO Contrast MR#: [id number] Acct: [id number] Name: DARREN REINOSO Rep #: [id number] : 1980 F 43 From: Tarah schmid MD PCP: Dr. Babar Phillip MD Status: REG CLI Study: CTA Chest W/WO Contrast Date of Exam: 05/13/23 Exam# [id number] Ordering Dr: Kamron Cobb MD [id number] EXAM: CT ANGIOGRAPHY CHEST WITHOUT AND WITH INTRAVENOUS CONTRAST CLINICAL INDICATION: Concern for PE with recent COVID TECHNIQUE: Helically acquired angiography images were obtained of the chest without and with intravenous contrast. This CT exam was performed using one or more of the following dose reduction techniques: automated exposure control, adjustment of the mA and/or kV according to patient size, and/or use of iterative reconstruction technique. MIP reconstructed images were created and reviewed. CONTRAST: IV 100mL [id number] COMPARISON: 05/24/2019. FINDINGS: PULMONARY ARTERIES: Unremarkable. Normal in caliber. No evidence of pulmonary embolism. AORTA: Unremarkable. Normal in caliber. No evidence of dissection. GREAT VESSELS OF AORTIC ARCH: Unremarkable. Normal in caliber. No evidence of dissection. LUNGS AND PLEURAL SPACES: Unremarkable. No mass. No consolidation or edema. No pleural effusion or thickening. No pneumothorax. HEART: Unremarkable. Heart size is normal. No pericardial effusion. No significant coronary artery calcifications. MEDIASTINUM: Unremarkable. No mediastinal or hilar adenopathy. Esophagus is unremarkable. No hiatal hernia. THYROID: Unremarkable. No thyroid lesions. BONES/JOINTS: Unremarkable. No suspicious lytic or blastic abnormality. CT/CTA Chest W/WO Contrast IMPRESSION: Negative CTA chest. Electronically Signed: Tarah Davis MD at 16:58 EST Reading Location ID and State: [id number] / Tel , Service support , CC: Dr. Kamron Cobb MD; Dr. Babar Phillip MD Quality Improvement Consultant: Signed Normal [facility] - Chemistry and C hemistry - challengeOrdered By: Kamron Cobb on 05-13-2023 GFR/1.73 sq M.predicted among non-blacks MDRD (S/P/Bld) [Vol rate/Area] 58.0000 mL/min/{1.73_m2} >60 [facility] Pulmonary Visit Reporton Pulmonary Visit Report [facility] [address] [place] [address] OFFICE VISIT Date of Service: 05/13/23 MR#: [id number] Acct: [id number] Name: DARREN REINOSO Rep #: [id number] : 1980 Provider: Dr. Kamron Cobb MD Age/Sex: 43/F Location: [facility] Status: Signed Assessment and Plan Assessment and Plan (1) Pulmonary embolism: Status: Suspected Qualifiers: Chronicity: unspecified Pulmonary embolism type: unspecified (2) Morbid obesity with BMI of 50.0-59.9, adult: Status: Chronic (3) EAMON (obstructive sleep apnea): Status: Chronic Comment: AHI 37.4 treated with CPAP 11 cm of water, residual AHI 0.2 (4) Asthma: Status: Chronic Qualifiers: Asthma complication type: unspecified Asthma persistence: unspecified Asthma severity: unspecified severity Qualified Code(s): J45.909 - Unspecified asthma, uncomplicated (5) Tobacco use disorder: Status: Chronic Orders: Orders Chest WITH Contrast Today I26.99 - Other pulmonary embolism without acute cor pulmonale Medications: Refilled montelukast 10 mg PO DAILY 30 tabs 6RF Plan Patient persists with shortness of breath following COVID despite steroids and antibiotics. Saturations have decreased significantly from baseline and patient does have an elevated pulse. Clinical concern for PE. Patient is not currently on anticoagulation. Patient has been smoking, but 1 would expect a slower decline. Patient does not have purulent sputum to suggest a COPD exacerbation. Obtain urgent/stat CTA of the chest Plan Details Goals Barriers: Goals Decrease pain and radiculopathy Barriers Obesity Follow Up: 6 Months ([facility]) HPI 6 M FU Details: Patient is a 43-year-old female, currently under the care of Dr. Walsh, who presents for evaluation secondary to shortness of breath and recent COVID-19. Since last visit, patient has been diagnosed with COVID-19 around [facility]. Patient has been compliant with her Symbicort and denies any complication such as thrush, hoarseness or sore throat. Patient was placed on Tylenol with codeine syrup by her PCP along with prednisone and doxycycline. Patient reports that she was unable to make it back to her baseline since her acute infection. Patient does have a much better cough. Patient is not reporting any purulent sputum and states she is back to her clear to white sputum. No hemoptysis has been reported. Patient continues to use her CPAP. Patient states her nasal interface is working well, but she feels like it is leaking more. Patient states her insurance feels that she only needs 1 mask per year. Patient states that she has had a current mask for over 6 months. Patient does not feel that she is benefiting from its use, but at times feels like she is not getting enough air. Patient is not checking her pulse ox at home. Patient states that she does not believe she has had any cyanosis. Patient is having pleuritic type chest pain on the right. Patient states this is worse with exertion and improves with resting. Patient has had consistent swelling of her lower extremities, but does not think that 1 is more swollen than the other. Review of systems otherwise negative from a constitutional, HEENT, respiratory, cardiovascular, GI, genitourinary, musculoskeletal, skin, neurologic, psychiatric and hematologic system unless stated above. Documentation personally reviewed with the patient Compliance report (April 2023): Compliant 97% of the time for an average of 7 hours 20 minutes on CPAP 11 cmH2O with a residual AHI of 0.4 and well-controlled leak. Intake Vital Signs 11/10/22 05:55 05/03/23 09:27 05/13/23 06:03 Height 5 ft 3 in 5 ft 3 in 5 ft 3 in Weight: 141.974 kg BMI 55.4 BP 151/93 H Blood Pressure Location Lt radial Position Sitting Respiration 18 Pulse 92 Pulse Source Monitor Temp 36.5 C L Temperature Source Temporal Artery Pulse Oximetry (%) 93 Oxygen Delivery Method room air Intake Visit Reasons: 6 M FU Chief Complaint: Productive cough DME Vendor: [employer] Accompanied by: Self Allergies codeine Allergy (Verified 05/13/23 14:18) Anaphylaxis nirmatrelvir [From Paxlovid] Allergy (Verified 05/13/23 14:18) Vomiting propoxyphene napsylate [From Darvocet-N] Allergy (Verified 05/13/23 14:18) Rash ritonavir [From Paxlovid] Allergy (Verified 05/13/23 14:18) Vomiting Sulfa (Sulfonamide Antibiotics) Allergy (Verified 05/13/23 14:18) Anaphylaxis amoxicillin Adverse Reaction (Verified 05/13/23 14:18) Other Medications nortriptyline 10 mg capsule 25 mg PO QHS leg 10/02/16 [History Confirmed 05/13/23] atorvastatin 10 mg tablet 10 mg PO QHS 05/24/19 [History Confirmed 05/13/23] ipratropium 0.5 mg-albuterol 3 mg (2.5 mg base)/3 mL nebulization soln 3 ml IH Q6 (more content not included)... [facility] Bedside Glucoseon 05-03-2023 FINGERSTICK GLU 150 mg/dL High 74-106 [facility] Comment on above: Result Comment: LEONA GEMENT OF PATIENT CARE PER NURSING PROTOCOL Performed By: #### L 501.080 ####[facility] [address] [place], [address] Glucose Glucometer (BldC) [M ass/Vol]Ordered By: Steve Tirado on 05-03-2023 Glucose [Mass/Vol] 150 mg/dL 74-106 [facility] Comment on above: MANAGEMENT OF PATIEN T CARE PER NURSING PROTOCOL Operative Reporton 3 Operative Report [facility] Medical Records Department [address] [facility] [place] [address] Operative Report 05/03/23 1249 MR#: [id number] Acct: [id number] Name: DARREN REINOSO Rep #: [id number] : 1980 43 From: Steve Tirado MD PCP: Dr. Babar Phillip MD Status:[facility] Location[place] [facility] [place] Report of Operation Date of Procedure: 05/03/23 Pre-Operative Diagnosis: Lumbosacral radiculopathy, lumbosacral degenerative disc disease, lumbosacral spinal stenosis Post-Operative Diagnosis: Lumbosacral radiculopathy, lumbosacral degenerative disc disease, lumbosacral spinal stenosis Surgery/Procedure Performed:: Diagnostic/therapeutic caudal epidural steroid injection under fluoroscopic guidance Type of Anesthesia: MAC Estimated Blood Loss (mL): Minimal Description of Procedure: DESCRIPTION OF PROCEDURE: History and physical of today was reviewed. Risks and benefits of the procedure were explained. The patient understood and agreed to proceed. Informed consent was obtained. IV inserted per routine protocol. The patient was taken to the operating room and placed in the prone position with a pillow positioned underneath the abdomen. The lower back and tailbone area was prepped and draped in a sterile fashion using iodine x3. Under fluoroscopy guidance on a lateral view, the caudal space was identified. The skin and subcutaneous tissue was anesthetized with approximately 3 mL of 1% lidocaine using a 25-gauge regular needle. Under direct visualization with fluoroscopy, using a 22-gauge 3-1/2-inch spinal needle, the needle was advanced via the skin through the sacral hiatus. The tip of the needle was passed through the sacrococcygeal ligament and advanced to approximately S4 area. After negative aspiration of blood or CSF, a total of 3 mL of contrast was injected to confirm correct placement of the needle as well as cephalad spread. The spread was followed to approximately L5 area. After confirmation on AP as well as lateral view and repeated negative aspiration, a total of 15 mL of preservative-free 0.125% Marcaine with 80 mg of Depo-Medrol was injected easily. The needle was then removed intact. The patient experienced no sign or symptoms of intrathecal or intravascular injection. The patient experienced no paresthesia. The procedure was completed without any apparent difficulty or any complications. The patient appeared to tolerate it well. ASSESSMENT AND PLAN: This is a 43-year-old female with lumbosacral radiculopathy, lumbosacral degenerative disc disease, lumbosacral spinal stenosis status post diagnostic/therapeutic caudal epidural steroid injection, patient will continue her current medications, patient will follow in approximately 2 weeks for reevaluation. Complications None 05/03/23 1249 Cosigner Signature (if applicable): CC: Dr. Babar Phillip MD; Dr. Steve Tirado MD Signed Normal [facility] Spine 1 View Any Levelon Spine 1 View Any Level [facility] Imaging Services [address] [place] [address] Spine 1 View Any Level MR#: [id number] Acct: [id number] Name: DARREN REINOSO Rep #: [id number] : 1980 F 43 From: Kong dailey MD PCP: Dr. Babar Phillip MD Status: [facility] Study: Spine 1 View Any Level Date of Exam: 05/03/23 Exam# [id number] Ordering Dr: Steve Tirado MD [id number] PROCEDURE: Caudal epidural steroid injection. DATE OF EXAMINATION: May 03, 2023. INDICATION: Female, 43 years old. Chronic low back pain. FLUOROSCOPY TIME (if supplied): (10 seconds) minutes/seconds. 12.41 mGy. One image was submitted. RAD/Spine 1 View Any Level IMPRESSION: Intraoperative fluoroscopic services provided for caudal epidural steroid injection. Electronically Signed: Kong Glez MD at 13:04 [facility] Reading Location ID and State: [facility] / [place] , Service support , CC: Dr. Babar Phillip MD; Dr. Steve Tirado MD Quality Improvement Consultant: Signed Normal [facility] XR Chest PA and Lateralon IMPRESSION: No acute radiographic abnormality. Quality Improvement Consultant: PSCB Transcribe Date/Time: Apr 21 2023 2:47P Dictated by : KAREL PALACIO MD This examination was interpreted and the report reviewed and electronically signed by: KAREL PALACIO MD on Apr 21 2023 2:47PM [facility] DIVISION OF RADIOLOGY * * *Final Report* * * DATE OF EXAM: Apr 21 2023 2:45PM WOX 5291 - XR CHEST 2V FRONTAL/LAT / PROCEDURE REASON: multiple diagnoses * * * * Physician Interpretation * * * * EXAMINATION: CHEST RADIOGRAPH (2 VIEW FRONTAL & LATERAL) CLINICAL HISTORY: Acute cough Shortness of breath MQ: XC2_6 EXAM DATE/TIME: 04/21/2023 2:45 PM COMPARISON: 04/24/2021 RESULT: Lines, tubes, and devices: None. Lungs and pleura: No consolidation. No lung mass. No pleural effusion. No pneumothorax. Cardiomediastinal silhouette: Normal cardiomediastinal silhouette. Bones and soft tissues: Unremarkable. DIVISION OF RADIOLOGY Provider, Latisha felix [place] - 04/21/2023 * * *Final Report* * * DATE OF EXAM: Apr 21 2023 2:45PM WOX 5291 - XR CHEST 2V FRONTAL/LAT / PROCEDURE REASON: multiple diagnoses * * * * Physician Interpretation * * * * EXAMINATION: CHEST RADIOGRAPH (2 VIEW FRONTAL & LATERAL) CLINICAL HISTORY: Acute cough Shortness of breath MQ: XC2_6 EXAM DATE/TIME: 04/21/2023 2:45 PM COMPARISON: 04/24/2021 RESULT: Lines, tubes, and devices: None. Lungs and pleura: No consolidation. No lung mass. No pleural effusion. No pneumothorax. Cardiomediastinal silhouette: Normal cardiomediastinal silhouette. Bones and soft tissues: Unremarkable. IMPRESSION IMPRESSION: No acute radiographic abnormality. Quality Improvement Consultant: PSCB Transcribe Date/Time: Apr 21 2023 2:47P Dictated by : KAREL PALACIO MD This examination was interpreted and the report reviewed and electronically signed by: KAREL PALACIO MD on Apr 21 2023 2:47PM EST [facility] Radiology Study observation (narrative) [facility] XR Chest PA and LateralOrder ed By: Ccf Provider on 04-21-2023 [facility] Glucose Glucometer (BldC) [M ass/Vol]Ordered By: Steve Tirado on 02-15-2023 Glucose [Mass/Vol] 132 mg/dL 74-106 [facility] Comment on above: MANAGEMENT OF PATIEN T CARE PER NURSING PROTOCOL Glucose Glucometer (BldC) [M ass/Vol]Ordered By: Steve Tirado on 01-04-2023 Glucose [Mass/Vol] 111 mg/dL 74-106 [facility] Comment on above: MANAGEMENT OF PATIEN T CARE PER NURSING PROTOCOL HEMOGLOBIN A1C (POC)on 11-23 HbA1c (Bld) [Mass fraction] 6.2 % 4.2 - 5.6 % [facility] CBC W Auto Differential pane l (Bld)on 08-24-2022 Basophils (Bld) [#/Vol] 0.03 10*3/uL <0.11 k/uL [facility] Basophils/100 WBC (Bld) 0.3 % [facility] Differential cell count method Nom (Bld) Auto [facility] Eosinophils (Bld) [#/Vol] 0.09 10*3/uL <0.46 k/uL [facility] Eosinophils/100 WBC (Bld) 0.8 % [facility] Erythrocyte distribution width (RBC) [Ratio] 13.9 % 11.5 - 15.0 % [facility] Hematocrit (Bld) [Volume fraction] 45.9 % 36.0 - 46.0 % [facility] Hemoglobin (Bld) [Mass/Vol] 13.8 g/dL 11.5 - 15.5 g/dL [facility] Immature granulocytes (Bld) [#/Vol] 0.05 10*3/uL <0.10 k/uL [facility] Immature granulocytes/100 WBC (Bld) 0.5 % [facility] Lymphocytes (Bld) [#/Vol] 2.69 10*3/uL 1.00 - 4.00 k/uL [facility] Lymphocytes/100 WBC (Bld) 25.1 % [facility] MCH (RBC) [Entitic mass] 28.9 pg 26.0 - 34.[address] [facility] MCHC (RBC) [Mass/Vol] 30.1 g/dL Low 30.5 - 36.0 g/dL [facility] MCV (RBC) [Entitic vol] 96.0 fL 80.0 - 100.[address] [facility] Monocytes (Bld) [#/Vol] 0.67 10*3/uL <0.87 k/uL [facility] Monocytes/100 WBC (Bld) 6.3 % [facility] Neutrophils (Bld) [#/Vol] 7.17 10*3/uL 1.45 - 7.50 k/uL [facility] Neutrophils/100 WBC (Bld) 67.0 % [facility] Nucleated RBC (Bld) [#/Vol] <0.01 k/uL [facility] Nucleated RBC/100 WBC (Bld) [Ratio] 0.0 /[address] [facility] Platelet mean volume (Bld) [Entitic vol] 10.1 fL 9.0 - 12.[address] [facility] Platelets (Bld) [#/Vol] 284 10*3/uL 150 - 400 k/uL [facility] RBC (Bld) [#/Vol] 4.78 10*6/uL 3.90 - 5.2 0 m/uL [facility] WBC (Bld) [#/Vol] 10.70 10*3/uL 3.70 - 11.00 k/uL [facility] XR Shoulder - left 3 Viewson 08-23-2022 IMPRESSION: Findings are suggestive of mild degenerative changes in the left shoulder. Quality Improvement Consultant: PSCAyan Transcribe Date/Time: Aug 23 2022 4:12P Dictated by : DELIO CALDWELL MD This examination was interpreted and the report reviewed and electronically signed by: DELIO CALDWELL MD on Aug 23 2022 4:13PM [facility] DIVISION OF RADIOLOGY * * *Final Report* * * DATE OF EXAM: Aug 20 2022 2:40PM WOX 5252 - XR SHLDR >/=3V AP/REJI AP/OTHR LT / PROCEDURE REASON: M25.512 Pain radiating to left shoulder * * * * Physician Interpretation * * * * EXAM TITLE: XR SHLDR >/=3V AP/REJI AP/OTHR LT EXAM DATE/TIME: 08/20/2022 2:40 PM COMPARISON: None. CLINICAL INDICATION/HISTORY: Pain. TECHNIQUE: AP, true AP and Y views of the left shoulder are presented FINDINGS: No acute fractures or subluxations are noted. The acromioclavicular and glenohumeral joint spaces are maintained however mild osteophyte formation is present. Normal acromiohumeral interval. The mineralization of the bones is normal. There is no significant soft tissue swelling. DIVISION OF RADIOLOGY Provider, [facility] - 08/23/2022 * * *Final Report* * * DATE OF EXAM: Aug 20 2022 2:40PM WOX 5252 - XR SHLDR >/=3V AP/REJI AP/OTHR LT / PROCEDURE REASON: M25.512 Pain radiating to left shoulder * * * * Physician Interpretation * * * * EXAM TITLE: XR SHLDR >/=3V AP/REJI AP/OTHR LT EXAM DATE/TIME: 08/20/2022 2:40 PM COMPARISON: None. CLINICAL INDICATION/HISTORY: Pain. TECHNIQUE: AP, true AP and Y views of the left shoulder are presented FINDINGS: No acute fractures or subluxations are noted. The acromioclavicular and glenohumeral joint spaces are maintained however mild osteophyte formation is present. Normal acromiohumeral interval. The mineralization of the bones is normal. There is no significant soft tissue swelling. IMPRESSION IMPRESSION: Findings are suggestive of mild degenerative changes in the left shoulder. Quality Improvement Consultant: PSCB Transcribe Date/Time: Aug 23 2022 4:12P Dictated by : DELIO CALDWELL MD This examination was interpreted and the report reviewed and electronically signed by: DELIO CALDWELL MD on Aug 23 2022 4:13PM EST [facility] XR Shoulder - left 3 ViewsOr dered By: Ccf Provider on 08-23-2022 [facility] XR Shoulder - left 3 Viewson 08-20-2022 Radiology Study observation (narrative) [facility] BHCG (SERUM)on 06-30-2022 B-HCG (SERUM) Negative Normal NEGATIVE [facility] Comment on above: Order Comment: Comme nt: AMBULATORY POD 17 Result Comment: Serum Test is more Sensitive than a Urine Test. Please Note Threshold Values: SERUM - 10mlU/mL URINE - 20mlU/mL Performed By: #### L [id number] #### ML - [facility] [address] [place] [address] HCG.beta subunit Qnon 2022 Beta hCG, Serum Negative NEGATIVE [facility] OPERATIVE REPORTon OPERATIVE REPORT [facility] [place] [address] HEALTH INFORMATION MANAGEMENT OPERATIVE REPORT Patient: ARLETHARAVIND DE LEON M.D. [id number] F Status: [facility] DATE OF SURGERY: 06/30/2022 SURGEON: Aravind Roque MD PREOPERATIVE DIAGNOSIS: Rectal bleeding. POSTOPERATIVE DIAGNOSIS: Normal colonoscopy. PROCEDURE: Colonoscopy. ANESTHESIA: IV general. PROCEDURE SUMMARY: The patient was brought to the endoscopy room and placed on the table in the left lateral position. IV sedation was given. Digital rectal exam was performed. There were no masses in the anal canal or distal rectum, no fissures, no significant hemorrhoidal tissue. The colonoscope was advanced to the cecum. Prep was good. Cecal position was confirmed by identification of the ileocecal junction, percutaneous palpation and transillumination. As the scope was withdrawn, mucosa was carefully inspected. The cecum, ascending, transverse colon, descending, sigmoid and rectum all appeared normal. No masses, polyps, ulcerations or mucosal abnormalities. The scope was removed. The patient tolerated the procedure well. IMPRESSION: Normal colonoscopy. RECOMMENDATIONS: High-fiber diet. Repeat colonoscopy in 10 years. Report#: Dict ID [id number] / Int ID [id number] 07/01/22 0808 _ ARAVIND ROQUE M.D. cc: ARAVIND ROQUE M.D. << Signature on File>> Reported By: ARAVIND ROQUE M.D. Signed By: ARAVIND ROQUE M.D. Tests performed at: [address] [address] Normal [facility] OPERATIVE REPORT [place] [address] HEALTH INFORMATION MANAGEMENT OPERATIVE REPORT Patient: DARREN REINOSO ARAVIND ROQUE M.D. [id number] F Status: [facility] AMB DATE OF SURGERY: 06/30/2022 SURGEON: Aravind Roque MD PREOPERATIVE DIAGNOSIS: Nausea and vomiting. POSTOPERATIVE DIAGNOSIS: Normal upper endoscopy. PROCEDURE: Esophagogastroduodenoscopy with biopsy of the duodenum. ANESTHESIA: IV general. PROCEDURE SUMMARY: The patient was brought to the endoscopy room and placed on the table in left lateral position. She was given IV general anesthetic. Bite block was put in place. The endoscope was advanced through the oropharynx, esophagus, and into the gastric lumen. Gastric mucosa appeared normal with normal folds. Pylorus, duodenal bulb, second and third portions of duodenum were clear without ulceration, mass, or inflammatory change. A biopsy of the duodenum was obtained. Scope was withdrawn into the gastric lumen. On retroflexed view, gastric body, cardia, and fundus were normal. Inspection of the distal esophagus revealed transition zone at the diaphragm without inflammatory change. Distal, mid, and proximal esophagus were normal. The scope was removed. She tolerated the procedure well. OPERATIVE FINDINGS: Normal upper endoscopy. Report#: Dict ID [id number] / Int ID [id number] 07/01/22 0808 _ ARAVIND ROQUE M.D. cc: ARAVIND ROQUE M.D. << Signature on File>> Reported By: ARAVIND ROQUE M.D. Signed By: ARAVIND ROQUE M.D. Tests performed at: [address] [address] [facility] SURGICALon 06-30-2022 SURGICAL Duodenum - BX FINAL DIAGNOSIS: DUODENUM, BIOPSY: FRAGMENTS OF SMALL INTESTINAL MUCOSA, NO PATHOLOGIC DIAGNOSIS, SEE COMMENT. COMMENT: Villous architecture is preserved; no parasites are identified Dictated by: MEY KENNEDY M.D. MICROSCOPIC DESCRIPTION: SLIDE(S) EXAMINED. [facility] 07/02/2022 GROSS DESCRIPTION: Labeled duodenal biopsy. Received in formalin are two fragments of white to pink-newell soft tissues measuring 0.4 x 0.3 x 0.2 cm in aggregate. Specimen is submitted in toto in one cassette. [facility] 07/01/2022 CLINICAL DATA: PROCEDURE: EGD with biopsy, colonoscopy PRE-OP: Epigastric pain, rectal bleeding, diarrhea POST-OP: Normal EGD, normal colon HISTORY: N/A Signed *Electronically Signed* MEY KENNEDY M.D. 07/02/22 1148 Normal [facility] Comment on above: Performed By: #### P -S #### ML - [facility] [address] [address] XR Knee - right 4 Viewson IMPRESSION: Osteoarthritis as described. Quality Improvement Consultant: SARWAT Transcribe Date/Time: May 13 2022 1:20P Dictated by : EVITA ELLINGTON MD This examination was interpreted and the report reviewed and electronically signed by: EVITA ELLINGTON MD on May 13 2022 1:22PM [facility] DIVISION OF RADIOLOGY * * *Final Report* * * DATE OF EXAM: May 13 2022 1:16PM WOX 5203 - XR KNEE 4V AP/PA BOTH+LAT/TORI RT / PROCEDURE REASON: Acute pain of right knee * * * * Physician Interpretation * * * * TITLE: XR KNEE 4V AP/PA BOTH+LAT/TORI RT CLINICAL INDICATION: Knee pain TECHNIQUE: AP/PA/merchant radiographs of both knees and lateral radiograph of the right knee COMPARISON: Radiographs dated February 05, 2020 FINDINGS: Right knee: Small to moderate suprapatellar joint effusion. No acute fracture or dislocation. Moderate medial compartmental joint space narrowing. Moderate patellofemoral compartmental joint space narrowing. Tricompartmental osteophyte production. Left knee: No acute fracture or dislocation. Moderate medial and moderate to severe patellofemoral compartmental joint space narrowing. Tricompartmental osteophyte production. DIVISION OF RADIOLOGY Provider, Dulce Maria Carissa Viramontes - 05/13/2022 * * *Final Report* * * DATE OF EXAM: May 13 2022 1:16PM WOX 5203 - XR KNEE 4V AP/PA BOTH+LAT/TORI RT / PROCEDURE REASON: Acute pain of right knee * * * * Physician Interpretation * * * * TITLE: XR KNEE 4V AP/PA BOTH+LAT/TORI RT CLINICAL INDICATION: Knee pain TECHNIQUE: AP/PA/merchant radiographs of both knees and lateral radiograph of the right knee COMPARISON: Radiographs dated February 05, 2020 FINDINGS: Right knee: Small to moderate suprapatellar joint effusion. No acute fracture or dislocation. Moderate medial compartmental joint space narrowing. Moderate patellofemoral compartmental joint space narrowing. Tricompartmental osteophyte production. Left knee: No acute fracture or dislocation. Moderate medial and moderate to severe patellofemoral compartmental joint space narrowing. Tricompartmental osteophyte production. IMPRESSION IMPRESSION: Osteoarthritis as described. Quality Improvement Consultant: [facility] Transcribe Date/Time: May 13 2022 1:20P Dictated by : EVITA ELLINGTON MD This examination was interpreted and the report reviewed and electronically signed by: EVITA ELLINGTON MD on May 13 2022 1:22PM EST [facility] Radiology Study observation (narrative) [facility] XR Knee - right 4 ViewsOrder ed By: Ccf Provider on 05-13-2022 [facility] UA DIP, URINE (POC)on 2021 BILIRUBIN UA (POCT) Negative Negative [facility] CLARITY UA (POCT) Clear [facility] COLOR UA (POCT) Yellow [facility] GLUCOSE UA (POCT) Negative Negative mg/dL [facility] HEMOGLOBIN/BLOOD UA (POCT) Negative Negative [facility] KETONE UA (POCT) Negative Negative mg/dL [facility] LEUKOCYTES UA (POCT) Negative Negative [facility] NITRITE UA (POCT) Negative Negative [facility] PH UA (POCT) 5.5 4.5 - 8.0 [facility] Protein Ql (U) Negative Negative mg/dL [facility] SPECIFIC GRAVITY UA (POCT) 1.020 1.005 - 1.030 [facility] UROBILINOGEN UA (POCT) 0.2 E.U./dL Normal E.U./dL [facility] BILIRUBIN UA (POCT) Negative Negative [facility] CLARITY UA (POCT) Clear [facility] COLOR UA (POCT) Yellow [facility] GLUCOSE UA (POCT) Negative Negative mg/dL [facility] HEMOGLOBIN/BLOOD UA (POCT) Negative Negative [facility] KETONE UA (POCT) Negative Negative mg/dL [facility] LEUKOCYTES UA (POCT) Negative Negative [facility] NITRITE UA (POCT) Negative Negative [facility] PH UA (POCT) 5.5 4.5 - 8.0 [facility] Protein Ql (U) Negative Negative mg/dL [facility] SPECIFIC GRAVITY UA (POCT) >=1.030 1.005 - 1.030 [facility] UROBILINOGEN UA (POCT) 0.2 E.U./dL Normal E.U./dL [facility] No Panel Informationon 03-30 [facility] XR Lumbar spine AP and Later ephraim 02-09-2022 IMPRESSION: Lumbar s pine degenerative changes as described above. Quality Improvement Consultant: SARWAT Transcribe Date/Time: Feb 09 2022 4:00P Dictated by : DELIO CALDWELL MD This examination was interpreted and the report reviewed and electronically signed by: DELIO CALDWELL MD on Feb 09 2022 4:02PM [facility] DIVISION OF RADIOLOGY * * *Final Report* * * DATE OF EXAM: Feb 09 2022 2:51PM WOX 5229 - XR LUMBAR 2V AP/LAT / PROCEDURE REASON: arthopathy of lumbar facet * * * * Physician Interpretation * * * * EXAM TITLE: XR LUMBAR 2V AP/LAT EXAM DATE/TIME: 02/09/2022 2:51 PM COMPARISON: X-ray lumbar spine on 02/13/2019 CLINICAL INDICATION/HISTORY: Pain. TECHNIQUE: AP, lateral and cone down lateral views of the lumbar spine are presented. FINDINGS: There are five [id number] lumbar vertebrae. No fracture or subluxations are noted. Right-sided curvature seen on AP view. There appears be L2-3 and L3-4 mild disc space narrowing. There is mild osteophyte formation. Others: There are 2 surgical evaluation clips in the pelvis. DIVISION OF RADIOLOGY Provider, Latisah Viramontes - 02/09/2022 * * *Final Report* * * DATE OF EXAM: Feb 09 2022 2:51PM WOX 5229 - XR LUMBAR 2V AP/LAT / PROCEDURE REASON: arthopathy of lumbar facet * * * * Physician Interpretation * * * * EXAM TITLE: XR LUMBAR 2V AP/LAT EXAM DATE/TIME: 02/09/2022 2:51 PM COMPARISON: X-ray lumbar spine on 02/13/2019 CLINICAL INDICATION/HISTORY: Pain. TECHNIQUE: AP, lateral and cone down lateral views of the lumbar spine are presented. FINDINGS: There are five [id number] lumbar vertebrae. No fracture or subluxations are noted. Right-sided curvature seen on AP view. There appears be L2-3 and L3-4 mild disc space narrowing. There is mild osteophyte formation. Others: There are 2 surgical evaluation clips in the pelvis. IMPRESSION IMPRESSION: Lumbar spine degenerative changes as described above. Quality Improvement Consultant: SARWAT Transcribe Date/Time: Feb 09 2022 4:00P Dictated by : DELIO CALDWELL MD This examination was interpreted and the report reviewed and electronically signed by: DELIO CALDWELL MD on Feb 09 2022 4:02PM EST [facility] Radiology Study observation (narrative) [facility] XR Lumbar spine AP and Later alOrdered By: Ccf Provider on 02-09-2022 [facility] LIPID PANEL BASICon 10-10-19 22 Cholesterol [Mass/Vol] 163 mg/dL <200 mg/dL [facility] Cholesterol in HDL [Mass/Vol] 49 mg/dL >39 mg/dL [facility] Cholesterol in LDL [Mass/Vol] 68 mg/dL <100 mg/dL [facility] Cholesterol in LDL/Cholesterol in HDL [Mass ratio] 1.39 {ratio} <2.54 [facility] Cholesterol in VLDL [Mass/Vol] 46 mg/dL High <30 mg/dL [facility] Cholesterol non HDL [Mass/Vol] 114 mg/dL <130 mg/dL [facility] Cholesterol.total/Ch olesterol in HDL [Mass ratio] 3.33 {ratio} <5.10 [facility] Fasting Time [address] [facility] Triglyceride [Mass/Vol] 228 mg/dL High <150 mg/dL [facility] ANES POSTPROC EVALon 022 ANES POSTPROC EVAL HNO ID: [id number] Author: Jean Garcia MD Service: Anesthesiology Author Type: Physician Type: Anesthesia Postprocedure Evaluation Filed: 07/23/2021 1:48 PM Note Text: POST ANESTHESIA EVALUATION NOTE : 1980 Procedure Summary Date: 07/23/21 Room / Location: [place] OR02 / [place] OR Anesthesia Start: 1128 Anesthesia Stop: 1220 Procedure: RELEASE TRIGGER THUMB AND RIGHT MIDDLE FINGER (Right Finger middle) Diagnosis: Trigger thumb of right hand Trigger middle finger of right hand Surgeons: Duran Blunt MD Responsible Provider: Jean Garcia MD Anesthesia Type: MAC ASA Status: 3 Anesthesia Type: MAC Last Vitals Vitals Value Taken Time BP 138/58 07/23/21 1300 Temp 07/23/21 1348 Pulse 91 07/23/21 1300 Resp 07/23/21 1348 SpO2 94 % 07/23/21 1300 Post Anesthesia Patient Status Patient Evaluation: PACU. PACU/ICU Patient Condition: stable. Anticipated Disposition: phase 2 then home. Neurological Status: aware and responsive. Pulmonary Status: breathing comfortably on room air Airway Control: returned to baseline unsupported. Cardiovascular Status: stable. Pain Management: clinically adequate - multimodal analgesia pain management approach Postoperative Hydration: acceptable. Intraoperative Events: no significant anesthesia events Recommendation: continue current plan of care. Anesthesia Observations No Documentation SIGNATURE: Jean Garcia MD PATIENT NAME: Darren Reinoso DATE: July 23, 2021 TIME: 1:48 PM CSN: [id number] [facility] ANES PRE-OPon 07-23-2021 ANES PRE-OP HNO ID: [id number] Author: Jean Garcia MD Service: Anesthesiology Author Type: Physician Type: Anesthesia Preprocedure Evaluation Filed: 07/23/2021 10:21 AM Note Text: ANESTHESIOLOGY DAY OF SURGERY NOTE : 1980 Procedure Information Date/Time: 07/23/21 1129 Procedure: RELEASE TRIGGER THUMB AND RIGHT MIDDLE FINGER (Right Finger middle) Location: [place] OR02 / [place] OR Surgeons: Duran Blunt MD Estimated body mass index is 55.62 kg/m? as calculated from the following: Height as of 07/16/21: 160 cm (5' 3). Weight as of 07/16/21: 142.4 kg (314 lb). Most recent hematocrit and potassium results: Hematocrit 44.9 04/24/2021 Potassium 4.2 07/01/2021 Relevant Problems ANESTHESIA (+) EAMON (obstructive sleep apnea) ENDO (+) Hypothyroidism GI (+) GERD (gastroesophageal reflux disease) NEURO-PSYCH (+) History of 2019 novel coronavirus disease (COVID-19) PULMONARY (+) Asthma (+) History of 2019 novel coronavirus disease (COVID-19) (+) EAMON (obstructive sleep apnea) I - PHYSICAL EVALUATION AIRWAY Patient intubated: No. Tracheostomy tube not present Mallampati: II. TM distance: >3 FB. Neck ROM: full ROM without neurological symptoms. Mouth opening: adequate. Short neck: no. Thick neck: no DENTAL Normal dental observations. Dental findings: teeth intact. Additional exam findings: no II - ANESTHESIA PLAN ASA Score: 3 Anesthetic Plan: MAC NPO Status: adequate Monitoring plan: Standard ASA. Postoperative analgesic plan: parenteral or oral opioids and multimodal analgesia. Patient / Surrogate agrees to blood products: blood products not planned DNR status not reviewed with patient and/or family prior to surgery. Significant changes in the patient condition since the History and Physical, not otherwise documented in primary service progress note: no. Potential Anesthesia issues that may suggest increased risk of complications or contraindication to planned procedure: none. No vitals data found for the desired time range. Facility-Administered Medications as of 07/23/2021 Medication Dose Route Frequency - lactated ringers iv infusion 5-30 mL/hr INTRAVENOUS CONTINUOUS Outpatient Medications as of 07/23/2021 Medication Sig - [] doxycycline monohydrate 100 mg tablet Take 1 tablet by mouth twice daily for 10 days. - potassium chloride (K-TAB) 10 mEq tablet Take 1 tablet by mouth daily with breakfast. Take with lasix - famotidine (PEPCID) 20 mg tablet Take 1 tablet by mouth twice daily. - atorvastatin (LIPITOR) 10 mg tablet Take 1 tablet by mouth once daily. - metFORMIN ER (GLUCOPHAGE XR) 500 mg 24 hr tablet Take 1 tablet by mouth daily with breakfast. - metoprolol tartrate, short acting, (LOPRESSOR) 25 mg tablet Take 1 tablet by mouth twice daily. - albuterol HFA (VENTOLIN HFA) 90 mcg/actuation inhaler Inhale 2 Puffs as instructed every 4 hours as needed for wheezing/shortness of breath. - fluticasone (FLONASE) 50 mcg/actuation nasal spray Use 2 Sprays in each nostril once daily. Rinse mouth after use. - ipratropium-albuterol (DUONEB) 0.5 mg-3 mg(2.5 mg base)/3 mL nebu INHALE 3 ML INSTRUCTED EVERY 4 HOURS NEEDED - lamoTRIgine (LAMICTAL) 100 mg tablet 100 mg. I have interviewed and examined the patient. I have reviewed the medical record and/or the pre-anesthesia evaluation, pertinent labs, and test results. This contains updated information obtained within 48 hours of Surgery/Procedure. SIGNATURE: Jean Garcia MD PATIENT NAME: Darren Reinoso DATE: July 23, 2021 TIME: 10:20 AM CSN: [id number] [facility] OPERATIVE NOon 07-23-2021 OPERATIVE NO HNO ID: [id number] Author: Duran Blunt MD Service: Orthopaedic Surgery Author Type: Physician Type: Operative Report Filed: 07/23/2021 12:34 PM Note Text: OPERATIVE/PROCEDURE REPORT LOG ID: [id number] Surgery/Procedure Date: 07/23/2021 Incision/Procedure Start Time: 11:50 AM Incision Close/Procedure End Time: 12:12 PM Surgeon(s)/Proceduralist(s) and Veterinary Pharmacologist(s): Surgeon(s) and Role: * Duran Blunt MD - Primary Nurse Practitioner: Ninoska Ortiz APRN.ICT SUPPORT ENGINEER Procedure(s): right thumb and middle trigger releases. Anesthesia: Local. Procedure Details: On 07/23/2021, the patient was clearly identified in the preoperative area and marked accordingly on the right thumb and middle fingers by myself. After a chloroprep swab, Local anesthetic was provided at the base of the thumb and middle digits near the A1 ezequiel site for a total of 2 mL of 1% lidocaine with Epinephrine. Patient was taken to the operative suite and placed in the supine position with an arm board on the right. All other bony landmarks were appropriately padded in standard fashion. The right upper extremity was sterilely prepped and draped in standard fashion. An appropriate time-out was conducted and all in the room were in agreement, signed consent form was on the chart. An incision was made over the A1 pulleys of the thumb and middle. This was done superficially with a 15 blade and blunt dissection was taken down longitudinally to the flexor apparatus. The digital nerves were clearly identified and protected throughout the case with Crile retractors. Under direct visualization, I divided the A1 ezequiel sites of the thumb and middle fingers with a 15 blade. There was obvious tenosynovitis and a slight synovectomy was made with Littler scissors. I used a Ragnell retractor to pull the tendons up through the wounds confirming complete releases. The wounds were copiously irrigated and the tourniquet was taken down. Hemostasis was observed with bipolar electrocautery. Closure was done with 4-0 Monosof sutures in horizontal mattress fashion for a total of 2 at each site. Xeroform gauze, an eye patch, light Katie wrap and Coban was used for final bandage. There were no complications during the procedure. Patient was safely awoken and transferred to the Postanesthetic Care Unit in stable condition. Pre-Op/Pre-Procedure Diagnosis: right thumb and middle trigger fingers Post-Op/Post-Procedure Diagnosis: right thumb and middle trigger fingers. Estimated Blood Loss: None Specimens: None Implantable Devices: None Drains: None Complications: None The primary surgeon/proceduralist performed the entire procedure. SIGNATURE: Duran Blunt MD PATIENT NAME: Darren Reinoso DATE: July 23, 2021 TIME: 12:32 PM PAGER/CONTACT #: [facility] XR Chest PA and Lateralon IMPRESSION: Slight prominence of the pulmonary markings. Quality Improvement Consultant: SARWAT Transcribe Date/Time: Apr 24 2021 12:05P Dictated by : DELIO CALDWELL MD This examination was interpreted and the report reviewed and electronically signed by: DELIO CALDWELL MD on Apr 24 2021 12:06PM [facility] DIVISION OF RADIOLOGY * * *Final Report* * * DATE OF EXAM: Apr 24 2021 11:56AM WOX 5291 - XR CHEST 2V FRONTAL/LAT / PROCEDURE REASON: SOB (shortness of breath) * * * * Physician Interpretation * * * * EXAMINATION: CHEST RADIOGRAPH (2 VIEW FRONTAL & LATERAL) CLINICAL HISTORY: SOB (shortness of breath) MQ: XC2_6 EXAM DATE/TIME: 04/24/2021 11:56 AM COMPARISON: Chest x-ray on 03/12/2021. RESULT: Lines, tubes, and devices: None. Lungs and pleura: There appears to be slight prominence of the bilateral pulmonary markings. No consolidation. No lung mass. No pleural effusion. No pneumothorax. Large left-sided pericardial fat pad is noted. Cardiomediastinal silhouette: Stable cardiomediastinal silhouette. Bones and soft tissues: There are degenerative changes in the spine. DIVISION OF RADIOLOGY Provider, [facility] - 04/24/2021 * * *Final Report* * * DATE OF EXAM: Apr 24 2021 11:56AM WOX 5291 - XR CHEST 2V FRONTAL/LAT / PROCEDURE REASON: SOB (shortness of breath) * * * * Physician Interpretation * * * * EXAMINATION: CHEST RADIOGRAPH (2 VIEW FRONTAL & LATERAL) CLINICAL HISTORY: SOB (shortness of breath) MQ: XC2_6 EXAM DATE/TIME: 04/24/2021 11:56 AM COMPARISON: Chest x-ray on 03/12/2021. RESULT: Lines, tubes, and devices: None. Lungs and pleura: There appears to be slight prominence of the bilateral pulmonary markings. No consolidation. No lung mass. No pleural effusion. No pneumothorax. Large left-sided pericardial fat pad is noted. Cardiomediastinal silhouette: Stable cardiomediastinal silhouette. Bones and soft tissues: There are degenerative changes in the spine. IMPRESSION IMPRESSION: Slight prominence of the pulmonary markings. Quality Improvement Consultant: SARWAT Transcribe Date/Time: Apr 24 2021 12:05P Dictated by : DELIO CALDWELL MD This examination was interpreted and the report reviewed and electronically signed by: DELIO CALDWELL MD on Apr 24 2021 12:06PM EST [facility] Radiology Study observation (narrative) [facility] XR Chest PA and LateralOrder ed By: Ccf Provider on 04-24-2021 [facility] XR Chest PA and Lateralon IMPRESSION: No acute radiographic abnormality. Quality Improvement Consultant: SARWAT Transcribe Date/Time: Mar 12 2021 2:31P Dictated by : KAREL PALACIO MD This examination was interpreted and the report reviewed and electronically signed by: KAREL PALACIO MD on Mar 12 2021 2:32PM EST DIVISION OF RADIOLOGY * * *Final Report* * * DATE OF EXAM: Mar 12 2021 2:29PM WOX [id number] - XR CHEST 2V FRONTAL/LAT / PROCEDURE REASON: multiple diagnoses * * * * Physician Interpretation * * * * EXAMINATION: CHEST RADIOGRAPH (2 VIEW FRONTAL & LATERAL) CLINICAL HISTORY: SOB (shortness of breath) LRTI (lower respiratory tract infection) MQ: XC2_6 EXAM DATE/TIME: 03/12/2021 2:29 PM COMPARISON: 01/24/2021 and 05/23/2019 RESULT: Lines, tubes, and devices: None. Lungs and pleura: No consolidation. No lung mass. No pleural effusion. No pneumothorax. Cardiomediastinal silhouette: Normal cardiomediastinal silhouette. Bones and soft tissues: Unremarkable. DIVISION OF RADIOLOGY Provider, [facility] - 03/12/2021 * * *Final Report* * * DATE OF EXAM: Mar 12 2021 2:29PM WOX [id number] - XR CHEST 2V FRONTAL/LAT / PROCEDURE REASON: multiple diagnoses * * * * Physician Interpretation * * * * EXAMINATION: CHEST RADIOGRAPH (2 VIEW FRONTAL & LATERAL) CLINICAL HISTORY: SOB (shortness of breath) LRTI (lower respiratory tract infection) MQ: XC2_6 EXAM DATE/TIME: 03/12/2021 2:29 PM COMPARISON: 01/24/2021 and 05/23/2019 RESULT: Lines, tubes, and devices: None. Lungs and pleura: No consolidation. No lung mass. No pleural effusion. No pneumothorax. Cardiomediastinal silhouette: Normal cardiomediastinal silhouette. Bones and soft tissues: Unremarkable. IMPRESSION IMPRESSION: No acute radiographic abnormality. Quality Improvement Consultant: PSCB Transcribe Date/Time: Mar 12 2021 2:31P Dictated by : KAREL PALACIO MD This examination was interpreted and the report reviewed and electronically signed by: KAREL PALACIO MD on Mar 12 2021 2:32PM EST [facility] Radiology Study observation (narrative) [facility] XR Chest PA and LateralOrder ed By: [facility] Provider on 03-12-2021 [facility] XR Chest PA and Lateralon IMPRESSION: No acute radiographic abnormality. Quality Improvement Consultant: SARWAT Transcribe Date/Time: Jan 24 2021 4:10P Dictated by : KAREL PALACIO MD This examination was interpreted and the report reviewed and electronically signed by: KAREL PALACIO MD on Jan 24 2021 4:11PM [facility] DIVISION OF RADIOLOGY * * *Final Report* * * DATE OF EXAM: Jan 24 2021 3:59PM WOX [id number] - XR CHEST 2V FRONTAL/LAT / PROCEDURE REASON: multiple diagnoses * * * * Physician Interpretation * * * * EXAMINATION: CHEST RADIOGRAPH (2 VIEW FRONTAL & LATERAL) CLINICAL HISTORY: Bacterial URI. Exacerbation of asthma MQ: XC2_6 EXAM DATE/TIME: 01/24/2021 3:59 PM COMPARISON: 11/12/2020 and 01/16/2020 RESULT: Lines, tubes, and devices: None. Lungs and pleura: No consolidation. No lung mass. No pleural effusion. No pneumothorax. Cardiomediastinal silhouette: Normal cardiomediastinal silhouette. Bones and soft tissues: Unremarkable. DIVISION OF RADIOLOGY Provider, [facility] - 01/24/2021 * * *Final Report* * * DATE OF EXAM: Jan 24 2021 3:59PM WOX [id number] - XR CHEST 2V FRONTAL/LAT / PROCEDURE REASON: multiple diagnoses * * * * Physician Interpretation * * * * EXAMINATION: CHEST RADIOGRAPH (2 VIEW FRONTAL & LATERAL) CLINICAL HISTORY: Bacterial URI. Exacerbation of asthma MQ: XC2_6 EXAM DATE/TIME: 01/24/2021 3:59 PM COMPARISON: 11/12/2020 and 01/16/2020 RESULT: Lines, tubes, and devices: None. Lungs and pleura: No consolidation. No lung mass. No pleural effusion. No pneumothorax. Cardiomediastinal silhouette: Normal cardiomediastinal silhouette. Bones and soft tissues: Unremarkable. IMPRESSION IMPRESSION: No acute radiographic abnormality. Quality Improvement Consultant: SARWAT Transcribe Date/Time: Jan 24 2021 4:10P Dictated by : KAREL PALACIO MD This examination was interpreted and the report reviewed and electronically signed by: KAREL PALACIO MD on Jan 24 2021 4:11PM [facility] Radiology Study observation (narrative) [facility] XR Chest PA and LateralOrder ed By: [facility] Provider on 01-24-2021 [facility] XR Chest PA and Lateralon IMPRESSION: Stable exam without acute findings. Quality Improvement Consultant: SARWAT Transcribe Date/Time: Nov 12 2020 11:27A Dictated by : DELIO CALDWELL MD This examination was interpreted and the report reviewed and electronically signed by: DELIO CALDWELL MD on Nov 12 2020 11:28AM [facility] DIVISION OF RADIOLOGY * * *Final Report* * * DATE OF EXAM: Nov 12 2020 11:19AM WOX [id number] - XR CHEST 2V FRONTAL/LAT / PROCEDURE REASON: SOB (shortness of breath) * * * * Physician Interpretation * * * * EXAMINATION: CHEST RADIOGRAPH (2 VIEW FRONTAL & LATERAL) CLINICAL HISTORY: SOB (shortness of breath) MQ: XC2_6 EXAM DATE/TIME: 11/12/2020 11:19 AM COMPARISON: Chest x-ray on 01/16/2020 RESULT: Lines, tubes, and devices: None. Lungs and pleura: No consolidation. No lung mass. No pleural effusion. No pneumothorax. Left-sided large pericardial fat pad is again noted. Cardiomediastinal silhouette: Normal cardiomediastinal silhouette. Bones and soft tissues: There are degenerative changes in the spine. DIVISION OF RADIOLOGY Provider, [facility] - 11/12/2020 * * *Final Report* * * DATE OF EXAM: Nov 12 2020 11:19AM WOX [id number] - XR CHEST 2V FRONTAL/LAT / PROCEDURE REASON: SOB (shortness of breath) * * * * Physician Interpretation * * * * EXAMINATION: CHEST RADIOGRAPH (2 VIEW FRONTAL & LATERAL) CLINICAL HISTORY: SOB (shortness of breath) MQ: XC2_6 EXAM DATE/TIME: 11/12/2020 11:19 AM COMPARISON: Chest x-ray on 01/16/2020 RESULT: Lines, tubes, and devices: None. Lungs and pleura: No consolidation. No lung mass. No pleural effusion. No pneumothorax. Left-sided large pericardial fat pad is again noted. Cardiomediastinal silhouette: Normal cardiomediastinal silhouette. Bones and soft tissues: There are degenerative changes in the spine. IMPRESSION IMPRESSION: Stable exam without acute findings. Quality Improvement Consultant: PSCB Transcribe Date/Time: Nov 12 2020 11:27A Dictated by : DELIO CALDWELL MD This examination was interpreted and the report reviewed and electronically signed by: DELIO CALDWELL MD on Nov 12 2020 11:28AM EST [facility] Radiology Study observation (narrative) [facility] XR Chest PA and LateralOrder ed By: [facility] Provider on 11-12-2020 [facility] Vital Signs Date Time Vital Sign Value Performing Clinician Facility 12-24-2024 14:35-0400 Body mass index (BMI) [Ratio] 57.74 kg/m2 Jazmyne Swank 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 Work Phone: [facility] 12-24-2024 14:35-0400 Body temperature 98.4 [degF] Jazmyne Swank 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 Work Phone: [facility] 12-24-2024 14:35-0400 Body weight 143.2 kg Jazmyne Swank 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 Work Phone: [facility] 12-24-2024 14:35-0400 Diastolic blood pressure 82 mm[Hg] Jazmyne Swank 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 Work Phone: [facility] 12-24-2024 14:35-0400 Heart rate 94 /min Jazmyne Swank 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 Work Phone: [facility] 12-24-2024 14:35-0400 Respiratory rate 18 /min Jazmyne Swank 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 Work Phone: [facility] 12-24-2024 14:35-0400 SaO2% (BldA) [Mass fraction] 97 % Jazmyne Swank 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 Work Phone: [facility] 12-24-2024 14:35-0400 Systolic blood pressure 130 mm[Hg] Jazmyne Swank 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 Work Phone: [facility] 11-20-2024 07:26-0400 Body mass index (BMI) [Ratio] 57.8 kg/m2 Caryn Lowery 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 Work Phone: [facility] 11-20-2024 07:26-0400 Body temperature 97 [degF] Caryn Older 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 Work Phone: [facility] 11-20-2024 07:26-0400 Body weight 143.34 kg Caryn Older 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 Work Phone: [facility] 11-20-2024 07:26-0400 Diastolic blood pressure 82 mm[Hg] Caryn Older 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 Work Phone: [facility] 11-20-2024 07:26-0400 Heart rate 87 /min Caryn Older 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 Work Phone: [facility] 11-20-2024 07:26-0400 Respiratory rate 16 /min Caryn Older 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 Work Phone: [facility] 11-20-2024 07:26-0400 SaO2% (BldA) [Mass fraction] 97 % Caryn Older 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 Work Phone: [facility] 11-20-2024 07:26-0400 Systolic blood pressure 122 mm[Hg] Caryn Older 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 Work Phone: [facility] 10-20-2024 11:22-0400 Body mass index (BMI) [Ratio] 58.53 kg/m2 Caryn Older 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 Work Phone: [facility] 10-20-2024 11:22-0400 Body weight 145.15 kg Caryn Older 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 Work Phone: [facility] 10-20-2024 11:22-0400 Diastolic blood pressure 78 mm[Hg] Caryn Older 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 Work Phone: [facility] 10-20-2024 11:22-0400 Heart rate 78 /min Caryn Older 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 Work Phone: [facility] 10-20-2024 11:22-0400 Respiratory rate 16 /min Caryn Older 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 Work Phone: [facility] 10-20-2024 11:22-0400 SaO2% (BldA) [Mass fraction] 97 % Caryn Older 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 Work Phone: [facility] 10-20-2024 11:22-0400 Systolic blood pressure 126 mm[Hg] Caryn Older 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 Work Phone: [facility] 10-17-2024 13:34-0400 Body mass index (BMI) [Ratio] 58.35 kg/m2 Charis Click 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 Work Phone: [facility] 10-17-2024 13:34-0400 Body weight 144.7 kg Charis Click 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 Work Phone: [facility] 10-17-2024 13:34-0400 Diastolic blood pressure 72 mm[Hg] Charis Click 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 Work Phone: [facility] 10-17-2024 13:34-0400 Heart rate 82 /min Charis Click 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 Work Phone: [facility] 10-17-2024 13:34-0400 Respiratory rate 17 /min Charis Click 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 Work Phone: [facility] 10-17-2024 13:34-0400 SaO2% (BldA) [Mass fraction] 96 % Charis Click 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 Work Phone: [facility] 10-17-2024 13:34-0400 Systolic blood pressure 122 mm[Hg] Charis Click 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 Work Phone: [facility] 10-11-2024 11:03-0400 Body mass index (BMI) [Ratio] 58.35 kg/m2 Caryn Older 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 Work Phone: [facility] 10-11-2024 11:03-0400 Body weight 144.7 kg Caryn Older 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 Work Phone: [facility] 10-11-2024 11:03-0400 Diastolic blood pressure 78 mm[Hg] Caryn Older 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 Work Phone: [facility] 10-11-2024 11:03-0400 Heart rate 78 /min Caryn Older 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 Work Phone: [facility] 10-11-2024 11:03-0400 Respiratory rate 16 /min Caryn Older 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 Work Phone: [facility] 10-11-2024 11:03-0400 SaO2% (BldA) [Mass fraction] 92 % Caryn Older 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 Work Phone: [facility] 10-11-2024 11:03-0400 Systolic blood pressure 128 mm[Hg] Caryn Older 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 Work Phone: [facility] 07-27-2024 13:02-0400 Body mass index (BMI) [Ratio] 57.25 kg/m2 Caryn Older 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 Work Phone: [facility] 07-27-2024 13:02-0400 Body weight 141.98 kg Caryn Older 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 Work Phone: [facility] 07-27-2024 13:02-0400 Diastolic blood pressure 78 mm[Hg] Caryn Older 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 Work Phone: [facility] 07-27-2024 13:02-0400 Heart rate 90 /min Caryn Older 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 Work Phone: [facility] 07-27-2024 13:02-0400 Respiratory rate 16 /min Caryn Older 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 Work Phone: [facility] 07-27-2024 13:02-0400 SaO2% (BldA) [Mass fraction] 97 % Caryn Older 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 Work Phone: [facility] 07-27-2024 13:02-0400 Systolic blood pressure 122 mm[Hg] Caryn Older 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 Work Phone: [facility] 07-13-2024 16:09-0500 Body mass index (BMI) [Ratio] 58.06 kg/m2 Janie Vinson 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 Work Phone: [facility] 07-13-2024 16:09-0500 Body temperature 98.49 [degF] Janie Vinson APRN.ICT SUPPORT ENGINEER Work Phone: [facility] 07-13-2024 16:09-0500 Body weight 144 kg Janie Vinson APRN.ICT SUPPORT ENGINEER Work Phone: [facility] 07-13-2024 16:09-0500 Diastolic blood pressure 87 mm[Hg] Janie iVnson APRN.ICT SUPPORT ENGINEER Work Phone: [facility] 07-13-2024 16:09-0500 Heart rate 88 /min Janie Vinson APRN.ICT SUPPORT ENGINEER Work Phone: [facility] 07-13-2024 16:09-0500 Respiratory rate 22 /min Janie Vinson APRN.ICT SUPPORT ENGINEER Work Phone: [facility] 07-13-2024 16:09-0500 SaO2% (BldA) [Mass fraction] 97 % Janie Vinson APRN.ICT SUPPORT ENGINEER Work Phone: [facility] 07-13-2024 16:09-0500 Systolic blood pressure 146 mm[Hg] Janie Vinson APRN.ICT SUPPORT ENGINEER Work Phone: [facility] 06-30-2024 13:03-0500 Body mass index (BMI) [Ratio] 57.61 kg/m2 Caryn Older 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 Work Phone: [facility] 06-30-2024 13:03-0500 Body weight 142.88 kg Caryn Older 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 Work Phone: [facility] 06-30-2024 13:03-0500 Diastolic blood pressure 72 mm[Hg] Caryn Older 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 Work Phone: [facility] 06-30-2024 13:03-0500 Heart rate 82 /min Caryn Older 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 Work Phone: [facility] 06-30-2024 13:03-0500 Respiratory rate 16 /min Caryn Older 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 Work Phone: [facility] 06-30-2024 13:03-0500 SaO2% (BldA) [Mass fraction] 99 % Caryn Older 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 Work Phone: [facility] 06-30-2024 13:03-0500 Systolic blood pressure 128 mm[Hg] Caryn Older 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 Work Phone: [facility] 06-16-2024 13:19-0500 Body height 157.5 cm Elle Boone MD Work Phone: [facility] 06-16-2024 13:19-0500 Body mass index (BMI) [Ratio] 57.43 kg/m2 Elle Boone MD Work Phone: [facility] 06-16-2024 13:19-0500 Body weight 142.43 kg Elle Boone MD Work Phone: [facility] 06-16-2024 13:19-0500 Diastolic blood pressure 90 mm[Hg] Elle Boone MD Work Phone: [facility] 06-16-2024 13:19-0500 Heart rate 82 /min Elle Boone MD Work Phone: [facility] 06-16-2024 13:19-0500 Respiratory rate 14 /min Elle Boone MD Work Phone: [facility] 06-16-2024 13:19-0500 SaO2% (BldA) [Mass fraction] 98 % Elle Boone MD Work Phone: [facility] 06-16-2024 13:19-0500 Systolic blood pressure 146 mm[Hg] Elle Boone MD Work Phone: [facility] 06-16-2024 13:05-0500 Body height 157.5 cm Pulm Wstr Work Phone: [facility] 06-16-2024 13:05-0500 Body mass index (BMI) [Ratio] 57.43 kg/m2 Pulm Wstr Work Phone: [facility] 06-16-2024 13:05-0500 Body weight 142.43 kg Pulm Wstr Work Phone: [facility] 06-16-2024 13:05-0500 Heart rate 83 /min Pulm Wstr Work Phone: [facility] 06-16-2024 13:05-0500 Respiratory rate 14 /min Pulm Wstr Work Phone: [facility] 06-16-2024 13:05-0500 SaO2% (BldA) [Mass fraction] 98 % Pulm Wstr Work Phone: [facility] 04-28-2024 11:20-0500 Body mass index (BMI) [Ratio] 57.04 kg/m2 Caryn Older 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 Work Phone: [facility] 04-28-2024 11:20-0500 Body weight 146.06 kg Caryn Older 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 Work Phone: [facility] 04-28-2024 11:20-0500 Diastolic blood pressure 80 mm[Hg] Caryn Older 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 Work Phone: [facility] 04-28-2024 11:20-0500 Heart rate 88 /min Caryn Older 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 Work Phone: [facility] 04-28-2024 11:20-0500 Respiratory rate 16 /min Caryn Older 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 Work Phone: [facility] 04-28-2024 11:20-0500 SaO2% (BldA) [Mass fraction] 97 % Caryn Older 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 Work Phone: [facility] 04-28-2024 11:20-0500 Systolic blood pressure 128 mm[Hg] Caryn Older 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 Work Phone: [facility] 04-02-2024 13:33-0500 Body mass index (BMI) [Ratio] 57.39 kg/m2 Victoria Nguyen 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 Work Phone: [facility] 04-02-2024 13:33-0500 Body temperature 97.5 [degF] Victoria Praisler-Wood 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 Work Phone: [facility] 04-02-2024 13:33-0500 Body weight 146.97 kg Victoria Praisler-Wood 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 Work Phone: [facility] 04-02-2024 13:33-0500 Diastolic blood pressure 87 mm[Hg] Victoria Praisler-Wood 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 Work Phone: [facility] 04-02-2024 13:33-0500 Heart rate 93 /min Victoria Praisler-Wood 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 Work Phone: [facility] 04-02-2024 13:33-0500 Respiratory rate 16 /min Victoria Praisler-Wood 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 DRAFTSMAN.[facility] Work Phone: [facility] 04-02-2024 13:33-0500 Systolic blood pressure 146 mm[Hg] Victoria Praisler-Wood 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 Work Phone: [facility] 04-01-2024 15:33-0500 Body mass index (BMI) [Ratio] 57.52 kg/m2 Victoria Praisler-Wood 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 Work Phone: [facility] 04-01-2024 15:33-0500 Body temperature 98.4 [degF] Victoria Praisler-Wood 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 Work Phone: [facility] 04-01-2024 15:33-0500 Body weight 147.3 kg Victoria Praisler-Wood 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 Work Phone: [facility] 04-01-2024 15:33-0500 Diastolic blood pressure 86 mm[Hg] Victoria Praisler-Wood 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 Work Phone: [facility] 04-01-2024 15:33-0500 Heart rate 88 /min Victoria Praisler-Wood 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 Work Phone: [facility] 04-01-2024 15:33-0500 Respiratory rate 20 /min Victoria Praisler-Wood 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 Work Phone: [facility] 04-01-2024 15:33-0500 SaO2% (BldA) [Mass fraction] 97 % Victoria Nguyen APRN.ICT SUPPORT ENGINEER Work Phone: [facility] 04-01-2024 15:33-0500 Systolic blood pressure 128 mm[Hg] Victoria Nguyen 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 Work Phone: [facility] 03-31-2024 14:25-0500 Body mass index (BMI) [Ratio] 57.49 kg/m2 Janie Vinson APRN.ICT SUPPORT ENGINEER Work Phone: [facility] 03-31-2024 14:25-0500 Body temperature 97.59 [degF] Janie Vinson APRN.ICT SUPPORT ENGINEER Work Phone: [facility] 03-31-2024 14:25-0500 Body weight 147.2 kg Janie Vinson APRN.ICT SUPPORT ENGINEER Work Phone: [facility] 03-31-2024 14:25-0500 Diastolic blood pressure 80 mm[Hg] Janie Vinson APRN.ICT SUPPORT ENGINEER Work Phone: [facility] 03-31-2024 14:25-0500 Heart rate 79 /min Janie Vinson APRN.ICT SUPPORT ENGINEER Work Phone: [facility] 03-31-2024 14:25-0500 Respiratory rate 22 /min Janie Vinson APRN.ICT SUPPORT ENGINEER Work Phone: [facility] 03-31-2024 14:25-0500 SaO2% (BldA) [Mass fraction] 93 % Janie Vinson APRN.ICT SUPPORT ENGINEER Work Phone: [facility] 03-31-2024 14:25-0500 Systolic blood pressure 138 mm[Hg] Janie Vinson APRN.ICT SUPPORT ENGINEER Work Phone: [facility] 03-17-2024 08:12-0400 Body mass index (BMI) [Ratio] 57.22 kg/m2 Caryn Lowery APRN.[employer] SUPPORT ENGINEER Work Phone: [facility] 03-17-2024 08:12-0400 Body weight 146.51 kg Caryn Older 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 Work Phone: [facility] 03-17-2024 08:12-0400 Diastolic blood pressure 76 mm[Hg] Caryn Older 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 Work Phone: [facility] 03-17-2024 08:12-0400 Heart rate 95 /min Caryn Older 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 Work Phone: [facility] 03-17-2024 08:12-0400 Respiratory rate 16 /min Caryn Older 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 Work Phone: [facility] 03-17-2024 08:12-0400 SaO2% (BldA) [Mass fraction] 95 % Caryn Older 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 Work Phone: [facility] 03-17-2024 08:12-0400 Systolic blood pressure 130 mm[Hg] Caryn Older 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 Work Phone: [facility] 02-17-2024 13:39-0400 Body mass index (BMI) [Ratio] 57.39 kg/m2 Caryn Older 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 Work Phone: [facility] 02-17-2024 13:39-0400 Body weight 146.97 kg Caryn Older 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 Work Phone: [facility] 02-17-2024 13:39-0400 Diastolic blood pressure 80 mm[Hg] Caryn Older 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 Work Phone: [facility] 02-17-2024 13:39-0400 Heart rate 88 /min Caryn Older 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 Work Phone: [facility] 02-17-2024 13:39-0400 Respiratory rate 16 /min Caryn Older 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 Work Phone: [facility] 02-17-2024 13:39-0400 SaO2% (BldA) [Mass fraction] 97 % Caryn Older 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 Work Phone: [facility] 02-17-2024 13:39-0400 Systolic blood pressure 128 mm[Hg] Caryn Older 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 Work Phone: [facility] 02-02-2024 12:15-0400 Body mass index (BMI) [Ratio] 57.04 kg/m2 Caryn Older 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 Work Phone: [facility] 02-02-2024 12:15-0400 Body temperature 97.59 [degF] Caryn Older 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 Work Phone: [facility] 02-02-2024 12:15-0400 Body weight 146.06 kg Caryn Older 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 Work Phone: [facility] 02-02-2024 12:15-0400 Diastolic blood pressure 78 mm[Hg] Caryn Older 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 Work Phone: [facility] 02-02-2024 12:15-0400 Heart rate 74 /min Caryn Older 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 Work Phone: [facility] 02-02-2024 12:15-0400 Respiratory rate 24 /min Caryn Older 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 Work Phone: [facility] 02-02-2024 12:15-0400 SaO2% (BldA) [Mass fraction] 95 % Caryn Older 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 Work Phone: [facility] 02-02-2024 12:15-0400 Systolic blood pressure 126 mm[Hg] Caryn Older 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 Work Phone: [facility] 01-21-2024 10:58-0400 Body mass index (BMI) [Ratio] 57.1 kg/m2 Caryn Older 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 Work Phone: [facility] 01-21-2024 10:58-0400 Body temperature 97.9 [degF] Caryn Older 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 Work Phone: [facility] 01-21-2024 10:58-0400 Body weight 146.2 kg Caryn Older 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 Work Phone: [facility] 01-21-2024 10:58-0400 Diastolic blood pressure 84 mm[Hg] Caryn Older 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 Work Phone: [facility] 01-21-2024 10:58-0400 Heart rate 102 /min Caryn Older 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 Work Phone: [facility] 01-21-2024 10:58-0400 Respiratory rate 16 /min Caryn Older 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 Work Phone: [facility] 01-21-2024 10:58-0400 SaO2% (BldA) [Mass fraction] 92 % Caryn Older 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 Work Phone: [facility] 01-21-2024 10:58-0400 Systolic blood pressure 136 mm[Hg] Caryn Older 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 Work Phone: [facility] 01-13-2024 11:13-0400 Body mass index (BMI) [Ratio] 56.15 kg/m2 Caryn Older 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 Work Phone: [facility] 01-13-2024 11:13-0400 Body weight 143.79 kg Caryn Older 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 Work Phone: [facility] 01-13-2024 11:13-0400 Diastolic blood pressure 88 mm[Hg] Caryn Older 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 Work Phone: [facility] 01-13-2024 11:13-0400 Heart rate 92 /min Caryn Older 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 Work Phone: [facility] 01-13-2024 11:13-0400 Respiratory rate 16 /min Caryn Older 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 Work Phone: [facility] 01-13-2024 11:13-0400 SaO2% (BldA) [Mass fraction] 93 % Caryn Older 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 Work Phone: [facility] 01-13-2024 11:13-0400 Systolic blood pressure 142 mm[Hg] Caryn Older 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 Work Phone: [facility] 01-04-2024 19:01-0400 Diastolic Blood Pressure Non-Invasive 77 mm[Hg] CHELSIE MORALES MD [facility] 01-04-2024 19:01-0400 Heart rate 88 /min CHELSIE MORALES MD [facility] 01-04-2024 19:01-0400 Respiratory rate 20 /min CHELSIE MORALES MD [facility] 01-04-2024 19:01-0400 Systolic Blood Pressure Non-Invasive 132 mm[Hg] CHELSIE MORALES MD [facility] 01-04-2024 17:39-0400 Diastolic Blood Pressure Non-Invasive 89 mm[Hg] CHELSIE MORALES MD [facility] 01-04-2024 17:39-0400 Heart rate 88 /min CHELSIE MORALES MD [facility] 01-04-2024 17:39-0400 Systolic Blood Pressure Non-Invasive 153 mm[Hg] CHELSIE MORALES MD [facility] 01-04-2024 16:04-0400 Body temperature 97.34 [degF] CHELSIE MORALES MD [facility] 01-04-2024 16:04-0400 Body weight 143.7 kg CHELSIE MORALES MD [facility] 01-04-2024 16:04-0400 Diastolic Blood Pressure Non-Invasive 95 mm[Hg] CHELSIE MORALES MD [facility] 01-04-2024 16:04-0400 Heart rate 91 /min CHELSIE MORALES MD [facility] 01-04-2024 16:04-0400 Respiratory rate 20 /min CHELSIE MORALES MD [facility] 01-04-2024 16:04-0400 Systolic Blood Pressure Non-Invasive 152 mm[Hg] CHELSIE MORALES MD [facility] 01-03-2024 13:00-0400 Body mass index (BMI) [Ratio] 55.98 kg/m2 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 Work Phone: [facility] 01-03-2024 13:00-0400 Body weight 143.34 kg 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 Work Phone: [facility] 01-03-2024 13:00-0400 Diastolic blood pressure 80 mm[Hg] 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 Work Phone: [facility] 01-03-2024 13:00-0400 Heart rate 80 /min 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 Work Phone: [facility] 01-03-2024 13:00-0400 Respiratory rate 16 /min 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 Work Phone: [facility] 01-03-2024 13:00-0400 SaO2% (BldA) [Mass fraction] 96 % 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 Work Phone: [facility] 01-03-2024 13:00-0400 Systolic blood pressure 132 mm[Hg] 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 Work Phone: [facility] 12-06-2023 14:58-0400 Body mass index (BMI) [Ratio] 56.04 kg/m2 Steve Ramirez 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 Work Phone: [facility] 12-06-2023 14:58-0400 Body temperature 97.81 [degF] Steve Ramirez 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 Work Phone: [facility] 12-06-2023 14:58-0400 Body weight 143.5 kg [facility] 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 Work Phone: [facility] 12-06-2023 14:58-0400 Diastolic blood pressure 90 mm[Hg] [facility] 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 Work Phone: [facility] 12-06-2023 14:58-0400 Heart rate 93 /min [facility] 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 Work Phone: [facility] 12-06-2023 14:58-0400 Respiratory rate 20 /min [facility] 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 Work Phone: [facility] 12-06-2023 14:58-0400 SaO2% (BldA) [Mass fraction] 96 % [facility] 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 Work Phone: [facility] 12-06-2023 14:58-0400 Systolic blood pressure 148 mm[Hg] [facility] 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 Work Phone: [facility] 12-03-2023 13:35-0400 Body mass index (BMI) [Ratio] 55.98 kg/m2 Caryn Older 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 Work Phone: [facility] 12-03-2023 13:35-0400 Body weight 143.34 kg Caryn Older 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 Work Phone: [facility] 12-03-2023 13:35-0400 Diastolic blood pressure 76 mm[Hg] Caryn Older 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 Work Phone: [facility] 12-03-2023 13:35-0400 Heart rate 92 /min Caryn Older 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 Work Phone: [facility] 12-03-2023 13:35-0400 Respiratory rate 16 /min Caryn Older 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 Work Phone: [facility] 12-03-2023 13:35-0400 SaO2% (BldA) [Mass fraction] 97 % Caryn Older 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 Work Phone: [facility] 12-03-2023 13:35-0400 Systolic blood pressure 128 mm[Hg] Caryn Older 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 Work Phone: [facility] 11-15-2023 13:15-0400 Body mass index (BMI) [Ratio] 55.52 kg/m2 Caryn Older 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 Work Phone: [facility] 11-15-2023 13:15-0400 Body weight 142.16 kg Caryn Older 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 Work Phone: [facility] 11-15-2023 13:15-0400 Diastolic blood pressure 94 mm[Hg] Caryn Older 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 Work Phone: [facility] 11-15-2023 13:15-0400 Heart rate 98 /min Caryn Older 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 Work Phone: [facility] 11-15-2023 13:15-0400 SaO2% (BldA) [Mass fraction] 95 % Caryn Older 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 Work Phone: [facility] 11-15-2023 13:15-0400 Systolic blood pressure 142 mm[Hg] Caryn Older 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 Work Phone: [facility] 10-13-2023 11:00-0400 Body height 160 cm Caryn Older 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 Work Phone: [facility] 10-13-2023 11:00-0400 Body mass index (BMI) [Ratio] 55.8 kg/m2 Caryn Older 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 Work Phone: [facility] 10-13-2023 11:00-0400 Body weight 142.88 kg Caryn Older 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 Work Phone: [facility] 10-13-2023 11:00-0400 Diastolic blood pressure 72 mm[Hg] Caryn Older 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 Work Phone: [facility] 10-13-2023 11:00-0400 Heart rate 101 /min Caryn Older 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 Work Phone: [facility] 10-13-2023 11:00-0400 Respiratory rate 16 /min Caryn Older 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 Work Phone: [facility] 10-13-2023 11:00-0400 SaO2% (BldA) [Mass fraction] 95 % Caryn Older 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 Work Phone: [facility] 10-13-2023 11:00-0400 Systolic blood pressure 140 mm[Hg] Caryn Older 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 Work Phone: [facility] 07-15-2023 13:45-0500 Body weight 144.7 kg Caryn Older 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 Work Phone: [facility] 07-15-2023 13:45-0500 Diastolic blood pressure 70 mm[Hg] Caryn Older 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 Work Phone: [facility] 07-15-2023 13:45-0500 Heart rate 84 /min Caryn Older 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 Work Phone: [facility] 07-15-2023 13:45-0500 Respiratory rate 16 /min Caryn Older 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 Work Phone: [facility] 07-15-2023 13:45-0500 SaO2% (BldA) [Mass fraction] 98 % Caryn Older 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 Work Phone: [facility] 07-15-2023 13:45-0500 Systolic blood pressure 118 mm[Hg] Caryn Older 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 Work Phone: [facility] 07-14-2023 18:36-0500 Body height 162.6 cm KANWAL GEUVARA MD [facility] 07-14-2023 18:36-0500 Body temperature 97.88 [degF] KANWAL GUEVARA MD [facility] 07-14-2023 18:36-0500 Body weight 145.5 kg KANWAL GUEVARA MD [facility] 07-14-2023 18:36-0500 Diastolic Blood Pressure Non-Invasive 98 mm[Hg] KANWAL GUEVARA MD [facility] 07-14-2023 18:36-0500 Heart rate 105 /min KANWAL GUEVARA MD [facility] 07-14-2023 18:36-0500 Respiratory rate 20 /min KANWAL GUEVARA MD [facility] 07-14-2023 18:36-0500 Systolic Blood Pressure Non-Invasive 156 mm[Hg] KANWAL GUEVARA MD [facility] 07-14-2023 08:35-0500 Body temperature 98.29 [degF] Steve Kavithaledon 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 Work Phone: [facility] 07-14-2023 08:35-0500 Body weight 145.88 kg Stevesuzi Ramirez 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 Work Phone: [facility] 07-14-2023 08:35-0500 Diastolic blood pressure 74 mm[Hg] Steve Pendlebury 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 Work Phone: [facility] 07-14-2023 08:35-0500 Heart rate 97 /min Steve Pendclotilde 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 Work Phone: [facility] 07-14-2023 08:35-0500 Respiratory rate 22 /min Steve Pendledon 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 Work Phone: [facility] 07-14-2023 08:35-0500 SaO2% (BldA) [Mass fraction] 94 % Steve Ramirez 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 Work Phone: [facility] 07-14-2023 08:35-0500 Systolic blood pressure 118 mm[Hg] Steve Pendledon 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 Work Phone: [facility] 07-09-2023 15:10-0500 Body temperature 98.49 [degF] Krislyn Aberegg PA Work Phone: [facility] 07-09-2023 15:10-0500 Body weight 143.79 kg Krislyn Aberegg PA Work Phone: [facility] 07-09-2023 15:10-0500 Diastolic blood pressure 90 mm[Hg] Krislyn Aberegg PA Work Phone: [facility] 07-09-2023 15:10-0500 Heart rate 90 /min Krislyn Aberegg PA Work Phone: [facility] 07-09-2023 15:10-0500 Respiratory rate 20 /min Krislyn Aberegg PA Work Phone: [facility] 07-09-2023 15:10-0500 SaO2% (BldA) [Mass fraction] 98 % Krislyn Aberegg PA Work Phone: [facility] 07-09-2023 15:10-0500 Systolic blood pressure 161 mm[Hg] Krislyn Aberegg PA Work Phone: [facility] 06-30-2023 15:50-0500 Body temperature 97.9 [degF] Shazia Lee 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 Work Phone: [facility] 06-30-2023 15:50-0500 Body weight 144.88 kg Shazia Lee 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 Work Phone: [facility] 06-30-2023 15:50-0500 Diastolic blood pressure 78 mm[Hg] Shazia Lee 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 Work Phone: [facility] 06-30-2023 15:50-0500 Heart rate 85 /min Shazia Lee 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 Work Phone: [facility] 06-30-2023 15:50-0500 Respiratory rate 18 /min Shazia Lee 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 Work Phone: [facility] 02-14-2024 15:50-0500 SaO2% (BldA) [Mass fraction] 97 % Shazia Lee 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 Work Phone: [facility] 06-30-2023 15:50-0500 Systolic blood pressure 128 mm[Hg] Shazia Lee 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 Work Phone: [facility] 05-13-2023 06:03-0500 Body height 160.[address] Babar Phillip Work Phone: [facility] 05-13-2023 06:03-0500 Body mass index (BMI) [Ratio] 55.4 kg/m2 Dr. Babar Phillip Work Phone: [facility] 05-13-2023 06:03-0500 Body temperature 97.7 [degF] Dr. Babar Phillip Work Phone: [facility] 05-13-2023 06:03-0500 Body weight 141.[address] Babar Phillip Work Phone: [facility] 05-13-2023 06:03-0500 Diastolic blood pressure 93 mm[Hg] Dr. Babar Phillip Work Phone: [facility] 05-13-2023 06:03-0500 Heart rate 92 /min Dr. Babar Phillip Work Phone: [facility] 05-13-2023 06:03-0500 Respiratory rate 18 /min Dr. Babar Phillip Work Phone: [facility] 05-13-2023 06:03-0500 SaO2% (BldA) [Mass fraction] 93 % Dr. Babar Phillip Work Phone: [facility] 05-13-2023 06:03-0500 Systolic blood pressure 151 mm[Hg] Dr. Babar Phillip Work Phone: [facility] 05-03-2023 11:15-0500 Body temperature 98.3 [degF] [facility] 05-03-2023 11:15-0500 Diastolic blood pressure 70 mm[Hg] [facility] 05-03-2023 11:15-0500 Heart rate 87 /min [facility] 05-03-2023 11:15-0500 Respiratory rate 16 /min [facility] 05-03-2023 11:15-0500 SaO2% (BldA) [Mass fraction] 98 % [facility] 05-03-2023 11:15-0500 Systolic blood pressure 128 mm[Hg] [facility] 05-03-2023 09:27-0500 Body height 160.02 cm [facility] 05-03-2023 09:27-0500 Body mass index (BMI) [Ratio] 56.6 kg/m2 [facility] 05-03-2023 09:27-0500 Body weight 145 kg [facility] 03-03-2023 12:20-0400 Body weight 141.98 kg Caryn Older 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 Work Phone: [facility] 03-03-2023 12:20-0400 Diastolic blood pressure 78 mm[Hg] Caryn Older 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 Work Phone: [facility] 03-03-2023 12:20-0400 Heart rate 74 /min Caryn Older 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 Work Phone: [facility] 03-03-2023 12:20-0400 Respiratory rate 16 /min Caryn Older 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 Work Phone: [facility] 03-03-2023 12:20-0400 SaO2% (BldA) [Mass fraction] 98 % Caryn Older 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 Work Phone: [facility] 03-03-2023 12:20-0400 Systolic blood pressure 128 mm[Hg] Caryn Older 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 Work Phone: [facility] 02-15-2023 10:18-0400 Body temperature 97.3 [degF] Dr. Babar Phillip Work Phone: [facility] 02-15-2023 10:18-0400 Diastolic blood pressure 81 mm[Hg] Dr. Babar Phillip Work Phone: 7(941)453-284784 [place] [address] 02-15-2023 10:18-0400 Heart rate 84 /min Dr. Babar Phillip Work Phone: 0(727)282-147068 [place] [address] 02-15-2023 10:18-0400 Respiratory rate 16 /min Dr. Babar Phillip Work Phone: 1(730)513-395868 [place] [address] 02-15-2023 10:18-0400 SaO2% (BldA) [Mass fraction] 98 % Dr. Babar Phillip Work Phone: 7(101)978-761268 [place] [address] 02-15-2023 10:18-0400 Systolic blood pressure 138 mm[Hg] Dr. Babar Phillip Work Phone: 6(473)472-004768 [place] [address] 02-15-2023 08:34-0400 Body height 160.[address] Babar Phillip Work Phone: 5(068)414-407868 [place] [address] 02-15-2023 08:34-0400 Body mass index (BMI) [Ratio] 54.9 kg/m2 Dr. Babar Phillip Work Phone: 7(333)500-549668 [place] [address] 02-15-2023 08:34-0400 Body weight 140.[address] Babar Phillip Work Phone: 6(049)818-074768 [place] [address] 01-11-2023 23:15-0400 Blood Pressure Cuff Size DR DANIEL NATION DO [facility] 01-11-2023 23:15-[address] DANIEL NATION DO [facility] 01-11-2023 23:15-[address] DANIEL NATION DO [facility] 01-11-2023 23:15-0400 Body height 162.[address] DANIEL NATION DO [facility] 01-11-2023 23:15-0400 Body temperature 97.16 [degF] DR DANIEL NATION DO [facility] 01-11-2023 23:15-0400 Body weight 141.[address] DANIEL NATION DO [facility] 01-11-2023 23:15-0400 Diastolic Blood Pressure Non-Invasive [address] DANIEL NATION DO [facility] 01-11-2023 23:15-0400 Heart rate 90 /min DR DANIEL NATION DO [facility] 01-11-2023 23:15-0400 Reason For Taking VItal Signs DR DANIEL NATION DO [facility] 01-11-2023 23:15-0400 Respiratory rate 20 /min DR DANIEL NATION DO [facility] 01-11-2023 23:15-0400 Systolic Blood Pressure Non-Invasive [address] DANIEL NATION DO [facility] 01-04-2023 11:55-0400 Body temperature 98.5 [degF] Dr. Babar Phillip Work Phone: [facility] 01-04-2023 11:55-0400 Diastolic blood pressure 52 mm[Hg] Dr. Babar Phillip Work Phone: [facility] 01-04-2023 11:55-0400 Heart rate 75 /min Dr. Babar Phillip Work Phone: [facility] 01-04-2023 11:55-0400 Respiratory rate 16 /min Dr. Babar Phillip Work Phone: [facility] 01-04-2023 11:55-0400 SaO2% (BldA) [Mass fraction] 97 % Dr. Babar Phillip Work Phone: [facility] 01-04-2023 11:55-0400 Systolic blood pressure 120 mm[Hg] Dr. Babar Phillip Work Phone: [facility] 01-04-2023 10:52-0400 Body height 162.[address] Babar Phillip Work Phone: [facility] 01-04-2023 10:52-0400 Body mass index (BMI) [Ratio] 53.3 kg/m2 Dr. Babar Phillip Work Phone: [facility] 01-04-2023 10:52-0400 Body weight [address] Babar Phillip Work Phone: [facility] 12-31-2022 11:05-0400 Body weight 139.71 kg Caryn Older 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 Work Phone: [facility] 12-31-2022 11:05-0400 Diastolic blood pressure 82 mm[Hg] Caryn Older 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 Work Phone: [facility] 12-31-2022 11:05-0400 Heart rate 76 /min Caryn Older 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 Work Phone: [facility] 12-31-2022 11:05-0400 Respiratory rate 16 /min Caryn Older 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 Work Phone: [facility] 12-31-2022 11:05-0400 SaO2% (BldA) [Mass fraction] 96 % Caryn Older 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 Work Phone: [facility] 12-31-2022 11:05-0400 Systolic blood pressure 136 mm[Hg] Caryn Older 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 Work Phone: [facility] 12-21-2022 13:02-0400 Body height [address] [facility] 12-21-2022 13:02-0400 Body weight 141.[address] [facility] 11-23-2022 10:50-0400 Body temperature 97.5 [degF] Caryn Older 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 Work Phone: [facility] 11-23-2022 10:50-0400 Body weight 140.62 kg Caryn Older 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 Work Phone: [facility] 11-23-2022 10:50-0400 Diastolic blood pressure 72 mm[Hg] Carny Older 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 Work Phone: [facility] 11-23-2022 10:50-0400 Heart rate 88 /min Caryn Older 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 Work Phone: [facility] 11-23-2022 10:50-0400 Respiratory rate 16 /min Caryn Older 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 Work Phone: [facility] 11-23-2022 10:50-0400 SaO2% (BldA) [Mass fraction] 98 % Caryn Older 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 Work Phone: [facility] 11-23-2022 10:50-0400 Systolic blood pressure 122 mm[Hg] Caryn Older 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 Work Phone: [facility] 11-10-2022 05:55-0400 Body mass index (BMI) [Ratio] 54.7 kg/m2 Dr. Babar Phillip Work Phone: 3(976)002-113784 [place] [address] 11-10-2022 05:55-0400 Body temperature 97.4 [degF] Dr. Babar Phillip Work Phone: 2(997)549-102568 [place] [address] 11-10-2022 05:55-0400 Body weight 140.[address] Babar Phillip Work Phone: 6(481)544-470184 [place] [address] 11-10-2022 05:55-0400 Diastolic blood pressure 82 mm[Hg] Dr. Babar Phillip Work Phone: 9(062)998-065584 [place] [address] 11-10-2022 05:55-0400 Heart rate 80 /min Dr. Babar Phillip Work Phone: 1(601)870-545184 [place] [address] 11-10-2022 05:55-0400 Respiratory rate 18 /min Dr. Babar Phillip Work Phone: 0(951)418-908184 [place] [address] 11-10-2022 05:55-0400 SaO2% (BldA) [Mass fraction] 94 % Dr. Babar Phillip Work Phone: [facility] 11-10-2022 05:55-0400 Systolic blood pressure 137 mm[Hg] Dr. Babar Phillip Work Phone: [facility] 08-24-2022 11:00-0400 Body weight 136.53 kg 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 Work Phone: [facility] 08-24-2022 11:00-0400 Diastolic blood pressure 72 mm[Hg] 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 Work Phone: [facility] 08-24-2022 11:00-0400 Heart rate 80 /min Caryn Older 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 Work Phone: [facility] 08-24-2022 11:00-0400 Respiratory rate 16 /min Caryn Older 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 Work Phone: [facility] 08-24-2022 11:00-0400 Systolic blood pressure 128 mm[Hg] 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 Work Phone: [facility] 08-03-2022 12:01-0400 Body temperature 97.8 [degF] Dr. Babar Phillip Work Phone: 7(143)039-920484 [place] [address] 08-03-2022 12:01-0400 Diastolic blood pressure 82 mm[Hg] Dr. Babar Phillip Work Phone: 0(601)152-659184 [place] [address] 08-03-2022 12:01-0400 Heart rate 81 /min Dr. Babar Phillip Work Phone: 6(826)752-021868 [place] [address] 08-03-2022 12:01-0400 Respiratory rate 18 /min Dr. Babar Phillip Work Phone: 4(763)092-998368 [place] [address] 08-03-2022 12:01-0400 SaO2% (BldA) [Mass fraction] 100 % Dr. Babar Phillip Work Phone: 4(635)443-483284 [place] [address] 08-03-2022 12:01-0400 Systolic blood pressure 110 mm[Hg] Dr. Babar Phillip Work Phone: 3(444)262-888584 [place] [address] 08-03-2022 11:19-0400 Body height 160.[address] Babar Phillip Work Phone: [facility] 08-03-2022 11:19-0400 Body mass index (BMI) [Ratio] 54.3 kg/m2 Dr. Babar Phillip Work Phone: [facility] 08-03-2022 11:19-0400 Body weight [address] Babar Phillip Work Phone: [facility] 07-17-2022 14:10-0500 Body weight 136.53 kg Caryn Older 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 Work Phone: [facility] 07-17-2022 14:10-0500 Diastolic blood pressure 80 mm[Hg] Caryn Older 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 Work Phone: [facility] 07-17-2022 14:10-0500 Heart rate 80 /min Caryn Older 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 Work Phone: [facility] 07-17-2022 14:10-0500 Respiratory rate 16 /min Caryn Older 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 Work Phone: [facility] 07-17-2022 14:10-0500 Systolic blood pressure 128 mm[Hg] Caryn Older 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 Work Phone: [facility] 06-17-2022 14:05-0500 Body height 160 cm Jared Xin PA-C Work Phone: [facility] 06-17-2022 14:05-0500 Body weight 138.35 kg Jared [place] PA-C Work Phone: [facility] 06-03-2022 15:32-0500 Body height 160 cm Kelli Abdirashid PA-C Work Phone: [facility] 06-03-2022 15:32-0500 Body weight 138.35 kg Kelli Abdirashid PA-C Work Phone: [facility]. [facility] 06-03-2022 15:32-0500 Diastolic blood pressure 74 mm[Hg] Kelli Abdirashid PA-C Work Phone: [facility] 06-03-2022 15:32-0500 Heart rate 84 /min Kelli Abdirashid PA-C Work Phone: [facility] 06-03-2022 15:32-0500 Systolic blood pressure 124 mm[Hg] Kelli Sharmalan PA-C Work Phone: [facility] 05-25-2022 10:43-0500 Body weight 137.89 kg Caryn Older 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 Work Phone: [facility] 05-25-2022 10:43-0500 Diastolic blood pressure 78 mm[Hg] Caryn Older 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 Work Phone: [facility] 05-25-2022 10:43-0500 Heart rate 88 /min Caryn Older 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 Work Phone: [facility] 05-25-2022 10:43-0500 Respiratory rate 16 /min Caryn Older 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 Work Phone: [facility] 05-25-2022 10:43-0500 Systolic blood pressure 122 mm[Hg] Caryn Older 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 Work Phone: [facility] 05-01-2022 12:40-0500 Body mass index (BMI) [Ratio] 54.8 kg/m2 Dr. Babar Phillip Work Phone: [facility] 05-01-2022 12:40-0500 Body temperature 98.6 [degF] Dr. Babar Phillip Work Phone: [facility] 05-01-2022 12:40-0500 Body weight 136.[address] Babar Phillip Work Phone: [facility] 05-01-2022 12:40-0500 Diastolic blood pressure 83 mm[Hg] Dr. Babar Phillip Work Phone: [facility] 05-01-2022 12:40-0500 Heart rate 98 /min Dr. Babar Phillip Work Phone: [facility] 05-01-2022 12:40-0500 Respiratory rate 20 /min Dr. Babar Phillip Work Phone: [facility] 05-01-2022 12:40-0500 SaO2% (BldA) [Mass fraction] 95 % Dr. Babar Phillip Work Phone: [facility] 05-01-2022 12:40-0500 Systolic blood pressure 145 mm[Hg] Dr. Babar Phillip Work Phone: [facility] 04-15-2022 14:35-0500 Body temperature 97.11 [degF] Caryn Older 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 Work Phone: [facility] 04-15-2022 14:35-0500 Body weight 136.08 kg Caryn Older ARCHITECTURAL DRAFTSMAN.ICT SUPPORT ENGINEER Work Phone: [facility] 04-15-2022 14:35-0500 Diastolic blood pressure 78 mm[Hg] Caryn Older ARCHITECTURAL DRAFTSMAN.ICT SUPPORT ENGINEER Work Phone: [facility] 04-15-2022 14:35-0500 Heart rate 84 /min Caryn Older ARCHITECTURAL DRAFTSMAN.ICT SUPPORT ENGINEER Work Phone: [facility] 04-15-2022 14:35-0500 Respiratory rate 16 /min Caryn Older ARCHITECTURAL DRAFTSMAN.ICT SUPPORT ENGINEER Work Phone: [facility] 04-15-2022 14:35-0500 SaO2% (BldA) [Mass fraction] 95 % Caryn Older ARCHITECTURAL DRAFTSMAN.ICT SUPPORT ENGINEER Work Phone: [facility] 04-15-2022 14:35-0500 Systolic blood pressure 126 mm[Hg] Caryn Older ARCHITECTURAL DRAFTSMAN.ICT SUPPORT ENGINEER Work Phone: [facility] 04-08-2022 14:29-0500 Body weight 136.08 kg Caryn Older ARCHITECTURAL DRAFTSMAN.ICT SUPPORT ENGINEER Work Phone: [facility] 04-08-2022 14:29-0500 Diastolic blood pressure 82 mm[Hg] Caryn Older ARCHITECTURAL DRAFTSMAN.ICT SUPPORT ENGINEER Work Phone: [facility] 11-23-2022 14:29-0500 Heart rate 80 /min Caryn Older ARCHITECTURAL DRAFTSMAN.ICT SUPPORT ENGINEER Work Phone: [facility] 04-08-2022 14:29-0500 Respiratory rate 16 /min Caryn Older ARCHITECTURAL DRAFTSMAN.ICT SUPPORT ENGINEER Work Phone: [facility] 04-08-2022 14:29-0500 Systolic blood pressure 132 mm[Hg] Caryn Older ARCHITECTURAL DRAFTSMAN.ICT SUPPORT ENGINEER Work Phone: [facility] 03-25-2022 17:44-0500 Body weight 137.44 kg Caryn Older ARCHITECTURAL DRAFTSMAN.ICT SUPPORT ENGINEER Work Phone: [facility] 03-25-2022 17:44-0500 Diastolic blood pressure 78 mm[Hg] Caryn Older ARCHITECTURAL DRAFTSMAN.ICT SUPPORT ENGINEER Work Phone: [facility] 03-25-2022 17:44-0500 Heart rate 80 /min Caryn Older ARCHITECTURAL DRAFTSMAN.ICT SUPPORT ENGINEER Work Phone: [facility] 03-25-2022 17:44-0500 Respiratory rate 16 /min Caryn Older ARCHITECTURAL DRAFTSMAN.ICT SUPPORT ENGINEER Work Phone: [facility] 03-25-2022 17:44-0500 Systolic blood pressure 128 mm[Hg] Caryn Older ARCHITECTURAL DRAFTSMAN.ICT SUPPORT ENGINEER Work Phone: [facility] 02-20-2022 13:19-0400 Diastolic blood pressure 82 mm[Hg] Caryn Older ARCHITECTURAL DRAFTSMAN.ICT SUPPORT ENGINEER Work Phone: [facility] 02-20-2022 13:19-0400 Heart rate 84 /min Caryn Older ARCHITECTURAL DRAFTSMAN.ICT SUPPORT ENGINEER Work Phone: [facility] 02-20-2022 13:19-0400 Respiratory rate 16 /min Caryn Older ARCHITECTURAL DRAFTSMAN.ICT SUPPORT ENGINEER Work Phone: [facility] 02-20-2022 13:19-0400 Systolic blood pressure 134 mm[Hg] Caryn Older ARCHITECTURAL DRAFTSMAN.ICT SUPPORT ENGINEER Work Phone: [facility] 12-22-2021 15:40-0400 Body temperature 97.7 [degF] Anu Older ARCHITECTURAL DRAFTSMAN.ICT SUPPORT ENGINEER Work Phone: [facility] 12-22-2021 15:40-0400 Body weight 138.8 kg Anu Older ARCHITECTURAL DRAFTSMAN.ICT SUPPORT ENGINEER Work Phone: [facility] 12-22-2021 15:40-0400 Diastolic blood pressure 84 mm[Hg] Anu Older ARCHITECTURAL DRAFTSMAN.ICT SUPPORT ENGINEER Work Phone: [facility] 12-22-2021 15:40-0400 Heart rate 82 /min Anu Older ARCHITECTURAL DRAFTSMAN.ICT SUPPORT ENGINEER Work Phone: [facility] 12-22-2021 15:40-0400 Respiratory rate 18 /min Anu Older ARCHITECTURAL DRAFTSMAN.ICT SUPPORT ENGINEER Work Phone: [facility] 12-22-2021 15:40-0400 SaO2% (BldA) [Mass fraction] 98 % Anu Older ARCHITECTURAL DRAFTSMAN.ICT SUPPORT ENGINEER Work Phone: [facility] 12-22-2021 15:40-0400 Systolic blood pressure 124 mm[Hg] Anu Older ARCHITECTURAL DRAFTSMAN.ICT SUPPORT ENGINEER Work Phone: [facility] 12-19-2021 15:46-0400 Body temperature 98.01 [degF] Sheri Jono ARCHITECTURAL DRAFTSMAN.ICT SUPPORT ENGINEER Work Phone: [facility] 12-19-2021 15:46-0400 Body weight 138.98 kg Sheri Jono ARCHITECTURAL DRAFTSMAN.ICT SUPPORT ENGINEER Work Phone: [facility] 12-19-2021 15:46-0400 Diastolic blood pressure 78 mm[Hg] Sheri Jono ARCHITECTURAL DRAFTSMAN.ICT SUPPORT ENGINEER Work Phone: [facility] 12-19-2021 15:46-0400 Heart rate 113 /min Sheri Jono ARCHITECTURAL DRAFTSMAN.ICT SUPPORT ENGINEER Work Phone: [facility] 12-19-2021 15:46-0400 Respiratory rate 18 /min Sheri Jono ARCHITECTURAL DRAFTSMAN.ICT SUPPORT ENGINEER Work Phone: [facility] 12-19-2021 15:46-0400 SaO2% (BldA) [Mass fraction] 97 % Sheri Jono ARCHITECTURAL DRAFTSMAN.ICT SUPPORT ENGINEER Work Phone: [facility] 12-19-2021 15:46-0400 Systolic blood pressure 126 mm[Hg] Sheri De La Cruz ARCHITECTURAL DRAFTSMAN.ICT SUPPORT ENGINEER Work Phone: [facility] 10-20-2021 13:31-0400 Body weight 140.16 kg Caryn Older ARCHITECTURAL DRAFTSMAN.ICT SUPPORT ENGINEER Work Phone: [facility] 10-20-2021 13:31-0400 Diastolic blood pressure 72 mm[Hg] Caryn Older ARCHITECTURAL DRAFTSMAN.ICT SUPPORT ENGINEER Work Phone: [facility] 10-20-2021 13:31-0400 Heart rate 80 /min Caryn Older ARCHITECTURAL DRAFTSMAN.ICT SUPPORT ENGINEER Work Phone: [facility] 10-20-2021 13:31-0400 Respiratory rate 16 /min Caryn Older ARCHITECTURAL DRAFTSMAN.ICT SUPPORT ENGINEER Work Phone: [facility] 10-20-2021 13:31-0400 Systolic blood pressure 128 mm[Hg] Caryn Older ARCHITECTURAL DRAFTSMAN.ICT SUPPORT ENGINEER Work Phone: [facility] Encounters Encounter Date Encounter Type Care Provider Facility Start: 12-24-2024 End: 12-24-2024 Patient encounter procedure Jazmyne Wyatt ARCHITECTURAL DRAFTSMAN.ICT SUPPORT ENGINEER Work Phone: [facility] [place] Comment on above: Left breast abscess (Primary Dx); Cellulitis of skin Start: 12-23-2024 End: 12-23-2024 Emergency department patient visit JESÚS HERRERA DO [facility] Start: 12-22-2024 End: 12-22-2024 ambulatory CARYN OLDER Facility:[facility] Start: 12-21-2024 End: 12-21-2024 [facility] Start: 11-21-2024 End: 11-22-2024 Refill Caryn Older ARCHITECTURAL DRAFTSMAN.ICT SUPPORT ENGINEER Work Phone: [facility] [place] Comment on above: Refill Request Start: 11-20-2024 End: 11-20-2024 Office outpatient visit 25 minutes Caryn Older ARCHITECTURAL DRAFTSMAN.ICT SUPPORT ENGINEER Work Phone: [facility] [place] Comment on above: Rash (Primary Dx); Skin infection Start: 11-20-2024 End: 11-20-2024 [facility] Facility:[facility] Start: 10-31-2024 End: 12-01-2024 ambulatory Babar Phillip MD Work Phone: [facility] [place] Start: 10-26-2024 End: 10-26-2024 Refill Babar Phillip MD Work Phone: [facility] [place] Comment on above: Refill Request Start: 10-20-2024 End: 10-20-2024 Office outpatient visit 25 minutes Caryn Lowery APRN.ICT SUPPORT ENGINEER Work Phone: [facility] [place] Comment on above: Chest pain, unspecif ied type (Primary Dx); Mild intermittent asthma with acute exacerbation (HCC); Dyspnea, unspecified type; Wheezing; Other hyperlipidemia; Tobacco use; Fatigue, unspecified type Start: 10-20-2024 End: 10-20-2024 [facility] Facility:[facility] Start: 10-17-2024 End: 10-17-2024 Office outpatient visit 40 minutes Charis Swan APRN.ICT SUPPORT ENGINEER Work Phone: Pulmonary Medicine Comment on above: Asthma, moderate per sistent, poorly-controlled (HCC) (Primary Dx); Multiple allergies; Productive cough; Cigarette smoker; Morbid obesity (HCC); Chronic hypoxemic respiratory failure (HCC); Lung nodule Start: 10-17-2024 End: 10-17-2024 [facility] Facility:[facility] Start: 10-14-2024 End: 10-15-2024 Emergency department patient visit DAVID NGUYEN MD [facility] Start: 10-11-2024 End: 10-13-2024 Follow-up encounter Caryn Lowery APRN.ICT SUPPORT ENGINEER Work Phone: [facility] [place] Start: 10-11-2024 End: 10-11-2024 Subsequent hospital visit by physician [facility] [place] Work Phone: Radiology Comment on above: Chest pain, unspecif ied type [R07.9] Start: 10-11-2024 End: 10-11-2024 Office outpatient visit 25 minutes Caryn Lowery APRN.ICT SUPPORT ENGINEER Work Phone: [facility] [place] Comment on above: Chest pain, unspecif ied type (Primary Dx); Dyspnea, unspecified type; Wheezing; Subacute cough; Acute pain of both shoulders; History of pulmonary aspergillosis; Tobacco dependence due to cigarettes; Gastroesophageal reflux disease without esophagitis Start: 10-11-2024 End: 10-11-2024 ambulatory Caryn Lowery APRN.ICT SUPPORT ENGINEER Work Phone: [facility] [place] Comment on above: Allergy Start: 10-10-2024 End: 10-13-2024 ambulatory Babar Phillip MD Work Phone: Internal Medicine [place] [id number] Start: 08-02-2024 End: 10-02-2024 Follow-up encounter Caryn Lowery APRN.ICT SUPPORT ENGINEER Work Phone: [facility] [place] Start: 07-31-2024 End: 07-31-2024 [facility] Facility:[facility] Start: 07-27-2024 End: 07-27-2024 [facility] Start: 07-27-2024 End: 07-27-2024 Patient encounter procedure Caryn Lowery APRN.ICT SUPPORT ENGINEER Work Phone: [facility] [place] Comment on above: Controlled type 2 di abetes mellitus without complication, without long-term current use of insulin (HCC) (Primary Dx); Hypothyroidism, unspecified type Start: 07-13-2024 End: 07-13-2024 Subsequent hospital visit by physician Марина [facility] [place] Work Phone: Radiology Comment on above: Acute cough [R05.1] Start: 07-13-2024 End: 07-13-2024 ambulatory [facility] Facility:[facility] Start: 07-13-2024 End: 07-13-2024 Patient encounter procedure Janie Vinson APRN.ICT SUPPORT ENGINEER Work Phone: [facility] Comment on above: URI, acute (Primary Dx); Acute cough Start: 06-30-2024 End: 06-30-2024 ambulatory [facility] Facility:[facility] Start: 06-30-2024 End: 06-30-2024 Patient encounter procedure Caryn Lowery APRN.ICT SUPPORT ENGINEER Work Phone: [facility] [place] Comment on above: Controlled type 2 di abetes mellitus without complication, without long-term current use of insulin (HCC) (Primary Dx); Morbid obesity with BMI of 50.0-59.9, adult ([facility]) Start: 06-19-2024 End: 06-19-2024 Telephone encounter Elle Boone MD Work Phone: Pulmonary Medicine Start: 06-16-2024 End: 06-16-2024 ambulatory [facility] Work Phone: [facility] Comment on above: Spirometry Start: 06-16-2024 End: 06-16-2024 Patient encounter procedure [facility] Work Phone: [facility] Comment on above: Mild persistent asth ma without complication (Primary Dx); Morbid obesity ([facility]); Chronic hypoxemic respiratory failure ([facility]); Lung nodule; Cigarette smoker Start: 05-16-2024 End: 05-19-2024 Refill Babar Phillip MD Work Phone: [facility] [place] Comment on above: Refill Request Start: 04-28-2024 End: 04-28-2024 ambulatory [facility] Facility:[facility] Start: 04-28-2024 End: 04-28-2024 Patient encounter procedure Caryn Lowery APRN.ICT SUPPORT ENGINEER Work Phone: [facility] [place] Comment on above: 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); Mild intermittent asthma with acute exacerbation; Controlled type 2 diabetes mellitus without complication, without long-term current use of insulin (HCC); Gastroesophageal reflux disease without esophagitis; Morbid obesity with BMI of 50.0-59.9, adult ([facility]); Encounter for immunization; Essential hypertension; Other hyperlipidemia Start: 04-12-2024 End: 04-12-2024 Refill Babar Phillip MD Work Phone: [facility] [place] Comment on above: Refill Request Start: 04-05-2024 End: 04-05-2024 Telephone encounter Shazia Lee ARCHITECTURAL DRAFTSMAN.ICT SUPPORT ENGINEER Work Phone: [facility] [place] [facility] Comment on above: Results Start: 04-02-2024 End: 04-02-2024 [facility] Facility:[facility] Start: 04-02-2024 End: 04-02-2024 Patient encounter procedure Victoria Nguyen ARCHITECTURAL DRAFTSMAN.ICT SUPPORT ENGINEER Work Phone: [facility] Comment on above: Abscess packing haresh brennon (Primary Dx) Start: 04-01-2024 End: 04-01-2024 [facility] Facility:[facility] Start: 04-01-2024 End: 04-01-2024 Patient encounter procedure Victoria Nguyen ARCHITECTURAL DRAFTSMAN.ICT SUPPORT ENGINEER Work Phone: [facility] Comment on above: Boil (Primary Dx) Start: 03-31-2024 End: 03-31-2024 [facility] Facility:[facility] Start: 03-31-2024 End: 03-31-2024 Patient encounter procedure Janie Vinson ARCHITECTURAL DRAFTSMAN.ICT SUPPORT ENGINEER Work Phone: [facility] Comment on above: Skin infection (Prim danielle Dx) Start: 03-17-2024 End: 03-17-2024 [facility] Facility:[facility] Start: 03-17-2024 End: 03-17-2024 Patient encounter procedure Caryn Lowery ARCHITECTURAL DRAFTSMAN.ICT SUPPORT ENGINEER Work Phone: [facility] [place] Comment on above: 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[facility]) (Primary Dx); EAMON (obstructive sleep apnea); Uncontrolled asthma Refill Request Start: 03-08-2024 ambulatory Yoseph Barakat ty:[facility] Start: 03-03-2024 End: 03-03-2024 [facility] Facility:[facility] Start: 02-29-2024 End: 03-01-2024 Telephone encounter Babar Phillip MD Work Phone: [facility] [place] Comment on above: Faxed to [facility] Start: 02-29-2024 End: 02-29-2024 ambulatory [facility] Facility:[facility] Start: 02-29-2024 End: 02-29-2024 Subsequent hospital visit by physician Jennifer [facility] ([facility]) Work Phone: Cat Scan Comment on above: Shortness of breath [R06.02] Start: 02-28-2024 End: 02-28-2024 Telephone encounter Babar Phillip MD Work Phone: [facility] [place] Comment on above: Results Start: 02-25-2024 End: 02-25-2024 ambulatory [facility] Facility:[facility] Start: 02-25-2024 End: 02-25-2024 Telephone encounter Babar Phillip MD Work Phone: [facility] [place] Comment on above: Faxed to 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); Ulnar neuropathy at elbow of right upper extremity Start: 02-17-2024 End: 02-17-2024 ambulatory CARYN LOWERY Facility:[facility] Start: 02-17-2024 End: 02-17-2024 Patient encounter procedure Caryn Lowery APRN.CNP Work Phone: [facility] [place] Comment on above: Shortness of breath (Primary Dx); Cough, unspecified type; Wheezing; Low O2 saturation; Mild intermittent asthma with acute exacerbation Start: 02-16-2024 End: 02-16-2024 Refchio Phillip MD Work Phone: [facility] [place] Comment on above: Refill Request Start: 02-04-2024 End: 02-04-2024 [facility] Facility:[facility] Start: 02-04-2024 End: 02-04-2024 Subsequent hospital visit by physician Xr [facility] [place] Work Phone: Radiology Comment on above: Shortness of breath [R06.02] Start: 02-02-2024 End: 02-02-2024 [facility] Facility:[facility] Start: 02-02-2024 End: 02-02-2024 Patient encounter procedure [facility] ARCHITECTURAL DRAFTSMAN.ICT SUPPORT ENGINEER Work Phone: [facility] [place] Comment on above: Shortness of breath (Primary Dx); Cough, unspecified type; Wheezing; Acute sinusitis, recurrence not specified, unspecified location; Malaise Start: 01-31-2024 End: 01-31-2024 ambulatory [facility] ARCHITECTURAL DRAFTSMAN.ICT SUPPORT ENGINEER Work Phone: [facility] [place] Comment on above: I am still sick Start: 01-21-2024 End: 01-21-2024 Subsequent hospital visit by physician Xr [facility] [place] Work Phone: Radiology Comment on above: Shortness of breath [R06.02] Start: 01-21-2024 End: 01-21-2024 [facility] Facility:[facility] Start: 01-21-2024 End: 01-21-2024 Patient encounter procedure Caryn Older ARCHITECTURAL DRAFTSMAN.ICT SUPPORT ENGINEER Work Phone: [facility] [place] Comment on above: Shortness of breath (Primary Dx); Chills; Cough, unspecified type; Wheezing; Other fatigue Start: 01-19-2024 End: 01-19-2024 Orders Only Duran Blunt MD Work Phone: Orthopaedics Comment on above: Right knee pain, uns pecified chronicity (Primary Dx) Start: 01-18-2024 End: 01-19-2024 Telephone encounter Duran Blunt MD Work Phone: Orthopaedics Start: 01-13-2024 End: 01-13-2024 ambulatory BABAR PHILLIP Facility:[facility] Start: 01-13-2024 End: 01-13-2024 Patient encounter procedure Caryn Lowery APRN.ICT SUPPORT ENGINEER Work Phone: [facility] [place] Comment on above: Shortness of breath (Primary Dx); Chest pain, unspecified type; Nodular radiologic density; Anger; Elevated d-dimer; Nausea and vomiting, unspecified vomiting type; Essential hypertension Start: 01-11-2024 End: 01-19-2024 Telephone encounter Babar Phillip MD Work Phone: [facility] [place] Comment on above: Medication Problem Start: 01-06-2024 End: 01-06-2024 Refill Babar Phillip MD Work Phone: [facility] [place] Comment on above: Refill Request Start: 01-05-2024 End: 01-06-2024 Telephone encounter Caryn Lowery APRN.ICT SUPPORT ENGINEER Work Phone: [facility] [place] Comment on above: Orders Start: 01-04-2024 End: 01-04-2024 Emergency department patient visit CHELSIE MORALES MD [facility] Start: 01-04-2024 End: 01-04-2024 Telephone encounter Babar Phillip MD Work Phone: [facility] [place] Comment on above: Elevated D- Dimer Start: 01-03-2024 End: 01-03-2024 Subsequent hospital visit by physician Марина [facility] [place] Work Phone: Radiology Comment on above: Chest pain, unspecif ied type [R07.9] Start: 01-03-2024 End: 01-03-2024 ambulatory CRAYN LOWERY Facility:[facility] Start: 01-03-2024 End: 01-03-2024 Patient encounter procedure Caryn Lowery APRN.ICT SUPPORT ENGINEER Work Phone: [facility] [place] Comment on above: Chest pain, unspecif ied type (Primary Dx); Shortness of breath; Palpitations; Controlled type 2 diabetes mellitus without complication, without long-term current use of insulin ([facility]) Start: 12-10-2023 Refill Babar Prince Work Phone: [facility] [place] Comment on above: Refill Request Start: 12-07-2023 Refill Babar Prince Work Phone: [facility] [place] Comment on above: Refill Request Start: 12-06-2023 End: 12-06-2023 Office outpatient visit 25 minutes Steve Ramirez APRN.CNP Work Phone: [facility] [place] [facility] Comment on above: Dental infection (Pr imary Dx) Start: 12-06-2023 Telephone encounter Babar tolentino MD Work Phone: [facility] [place] Comment on above: Patient Question Start: 12-03-2023 End: 12-03-2023 Patient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 01-23-2025 End: 01-23-2025 Patient encounter procedure 01/23/2025 1:00 PM EDT Office Visit [facility] [place] [address] [facility] [place] [address] Babar Phillip MD [address] [facility] [place] [address] 3 month follow up [facility] [place] Comment on above: 3 month follow up Start: 01-20-2025 Annual PCP Team Chronic Disease Visit Annual PCP Team [facility] [facility] Start: 01-19-2025 End: 01-19-2025 Patient encounter procedure 01/19/2025 1:00 PM EDT Office Visit Internal Medicine [place] [address] [facility] [place] [address] Caryn Lowery APRN.ICT SUPPORT ENGINEER [address] [facility] [place] [address] 3 month follow up Internal Medicine [place] Comment on above: 3 month follow up Start: 01-15-2025 Influenza vaccination Influenza Vaccine (#1) [place] [facility] Start: 01-12-2025 Annual PCP Team Chronic Disease Visit Annual PCP Team Chronic Disease Visit [facility] Start: 01-02-2025 Annual PCP Team Chronic Disease Visit Annual PCP Team Chronic Disease Visit [facility] Start: 12-26-2024 End: 12-26-2024 Patient encounter procedure 12/26/2024 2:15 PM EDT Office Visit General Surgery [address] [place] [address] Ramon Gonzalez MD [address] [facility] [place] [address] Left breast abscess [N61.1] General Surgery Comment on above: Left breast abscess [N61.1] Start: 12-25-2024 End: 12-25-2024 Patient encounter procedure 12/25/2024 3:00 PM EDT Office Visit Internal Medicine [place] [address] [place] [address] Caryn Lowery APRN.ICT SUPPORT ENGINEER [address] [place] [address] Follow up boil Internal Medicine [place] Comment on above: Follow up boil Start: 12-02-2024 Annual PCP Team Chronic Disease Visit Annual PCP Team Chronic Disease Visit [facility] Start: 12-02-2024 BP Controlled (<130/80) BP Controlled (<130/80) [facility] in Start: 11-14-2024 Annual PCP Team Chronic Disease Visit Annual PCP Team Chronic Disease Visit [facility] Start: 11-13-2024 Influenza vaccination Influenza Vaccine (#1) [facility] Comment on above: Postponed from 01/16/2024 (Declined at t his time) Start: 10-27-2024 Hemoglobin A1c measurement HbA1C [facility] Start: 10-26-2024 End: 10-26-2024 Patient encounter procedure Internal Medicine [place] Comment on above: 3 month follow up Chest pain, unspecif ied type [R07.9]; SOB (shortness of breath) [R06.02]; Elevated d-dimer [R79.89] Start: 10-20-2024 End: 10-20-2024 Patient encounter procedure 10/20/2024 11:20 AM EDT Office Visit Internal Medicine [place] [address] [place], [place] [address] Caryn Lowery APRN.ICT SUPPORT ENGINEER [address] [place] [address] 1 week follow up Internal Medicine [place] Comment on above: 1 week follow up Start: 10-19-2024 Annual PCP Team Chronic Disease Visit Annual PCP Team Chronic Disease Visit [facility] Start: 10-17-2024 End: 10-17-2024 Patient encounter procedure Pulmonary Medicine Comment on above: 4 MTH F/U Start: 10-12-2024 Annual PCP Team Chronic Disease Visit Annual PCP Team Chronic Disease Visit [facility] Start: 10-11-2024 End: 01-10-2025 Bacteria identified in Unspecified specimen by Respiratory culture [facility] Work Phone: Comment on above: Expected: 10/11/2024, Expires: Start: 10-03-2024 Hepatitis B surface antibody level LDL Cholesterol [facility] Start: 07-27-2024 End: 10-26-2024 Hemoglobin A1c in Blood HEMOGLOBIN A1C Lab Routine Controlled type 2 diabetes mellitus without complication, without long-term current use of insulin (HCC) Expected: 07/27/2024, Expires: 10/26/2024 [facility] Work Phone: Comment on above: Expected: 07/27/2024, Expires: Start: 07-27-2024 End: 10-26-2024 Thyrotropin [Units/volume] in Serum or Plasma THYROID STIMULATING HORMONE Lab Routine Hypothyroidism, unspecified type Expected: 07/27/2024, Expires: 10/26/2024 [facility] Comment on above: Expected: 07/27/2024, Expires: Start: 07-27-2024 End: 07-27-2024 Patient encounter procedure 07/27/2024 1:00 PM EDT Office Visit Internal Medicine [place] [address] [facility] [place] [address] Caryn Lowery APRN.ICT SUPPORT ENGINEER [address] [facility] [place] [address] 3 month follow up [facility] [place] Comment on above: 3 month follow up Start: 07-14-2024 Annual PCP Team Chronic Disease Visit Annual PCP Team Chronic Disease Visit [facility] Start: 07-14-2024 BP Controlled (<130/80) BP Controlled (<130/80) [facility] Start: 06-30-2024 End: 06-30-2024 Patient encounter procedure 06/30/2024 1:00 PM EST Office Visit Internal Medicine [place] [address] [facility] [place] [address] Caryn Lowery APRN.ICT SUPPORT ENGINEER [address] [place] [address] DM follow up [facility] [place] Comment on above: DM follow up Start: 05-31-2024 Annual PCP Team Chronic Disease Visit Annual PCP Team Chronic Disease Visit [facility] Start: 05-31-2024 Covid-19 Vaccine (#1) Covid-19 Vaccine (#1) [facility] Comment on above: Postponed from 1978 (Declined at t his time) Start: 05-31-2024 Covid-19 Vaccine ( season) Covid-19 Vaccine ( season) [facility] Comment on above: Postponed from 01/15/2023 (Declined at t his time) Start: 05-31-2024 Hepatitis B Vaccine (1 of 3 - 19+ 3-dose series) Hepatitis B Vaccine (1 of 3 - 19+ 3-dose series) [facility] Comment on above: Postponed from 1997 (Declined at t his time) Start: 05-31-2024 Hepatitis B Vaccine (1 of 3 - 3-dose series) Hepatitis B Vaccine (1 of 3 - 3-dose series) [facility] Comment on above: Postponed from 1978 (Declined at t his time) Start: 05-31-2024 Pneumococcal vaccination Pneumococcal Vaccine (2 of 2 - PPSV23 or PCV20) [facility] Comment on above: Postponed from 04/23/2021 (Declined at t his time) Start: 05-31-2024 Screening for malignant neoplasm of cervix [facility] Comment on above: Postponed from 08/23/2013 (Declined at t his time) Start: 05-31-[address] [facility] Comment on above: Postponed from 01/10/1996 (Declined at t his time) Start: 05-31-2024 Urine microalbumin profile DTaP,Tdap,Td Vaccine (2 - Td or Tdap) [facility] Comment on above: Postponed from 10/03/2022 (Declined at t his time) Start: 05-23-2024 End: 05-23-2024 Patient encounter procedure 05/23/2024 3:15 PM EST Office Visit Pulmonary Medicine [address] [place] [address] Elle Boone MD [address] [facility] [place] [address] Shortness of breath [R06.02] Pulmonary Medicine Comment on above: Shortness of breath [R06.02] Start: 05-23-2024 End: 05-23-2024 ambulatory 05/23/2024 2:45 PM EST Procedure PULM LAB [facility] [address] [facility] [place] [address] Wstr, Pulm Lab [facility] [address] [place] [address] Shortness of breath [R06.02] PULM LAB [facility] WS Comment on above: Shortness of breath [R06.02] Start: 04-28-2024 End: 04-28-2024 Patient encounter procedure 04/28/2024 11:20 AM EST Office Visit Internal Medicine [place] [address] [facility] [place] [address] Caryn Lowery APRN.ICT SUPPORT ENGINEER [address] [place] [address] Medication follow up up Internal Medicine [place] Comment on above: Medication follow up up Start: 04-17-2024 End: 04-17-2024 Patient encounter procedure 04/17/2024 1:30 PM EST Office Visit Pulmonary Medicine [address] [place] [address] Elle Boone MD [address] [place] [address] Shortness of breath [R06.02] Pulmonary Medicine Comment on above: Shortness of breath [R06.02] Start: 04-17-2024 End: 04-17-2024 ambulatory 04/17/2024 1:00 PM EST Procedure PULM LAB [facility] [address] [place] [address] Wstr, Pulm Lab [facility] [address] [place] [address] Shortness of breath [R06.02] PULM LAB [facility] Comment on above: Shortness of breath [R06.02] Start: 04-12-2024 Annual PCP Team Chronic Disease Visit Annual PCP Team Chronic Disease Visit [facility] Start: 04-05-2024 Hemoglobin A1c measurement HbA1C [facility] Start: 03-15-2024 End: 03-15-2024 Patient encounter procedure 03/15/2024 2:20 PM EDT Office Visit Internal Medicine [place] [address] [place] [address] Caryn Lowery APRN.ICT SUPPORT ENGINEER [address] [place] [address] 6 week follow up Internal Medicine [place] Comment on above: 6 week follow up Start: 03-03-2024 Annual PCP Team Chronic Disease Visit Annual PCP Team Chronic Disease Visit [facility] Start: 03-03-2024 BP Controlled (<130/80) BP Controlled (<130/80) [facility] Start: 02-29-2024 End: 02-29-2024 Patient encounter procedure 02/29/2024 1:40 PM EDT Appointment Cat Scan [address] [place] [address] Shortness of breath [R06.02] [facility] Comment on above: Shortness of breath [R06.02] Start: 02-29-2024 End: 02-29-2024 Patient encounter procedure 02/29/2024 8:40 AM EDT Appointment Cat Scan [address] [place] [address] Shortness of breath [R06.02] [facility] Comment on above: Shortness of breath [R06.02] Start: 02-26-2024 Hepatitis B surface antibody level LDL Cholesterol [facility] Start: 02-25-2024 End: 05-26-2024 A. FUMIGATUS AB, IGG [facility] Comment on above: Expected: 02/25/2024, Expires: Start: 02-25-2024 End: 05-26-2024 Aspergillus fumigatus IgE Ab [Units/volume] in Serum [facility] Comment on above: Expected: 02/25/2024, Expires: Start: 02-25-2024 End: 05-26-2024 CBC W Auto Differential panel - Blood [facility] Work Phone: Comment on above: Expected: 02/25/2024, Expires: Start: 02-25-2024 End: 05-26-2024 IgE [Units/volume] in Serum or Plasma [facility] Comment on above: Expected: 02/25/2024, Expires: Start: 02-21-2024 End: 02-21-2024 Patient encounter procedure 02/21/2024 2:30 PM EDT Office Visit Orthopaedics [address] [place] [address] Duran Blunt MD [address] [place] [address] Right knee pain Orthopaedics Comment on above: Right knee pain Start: 02-02-2024 End: 02-02-2024 Patient encounter procedure 02/02/2024 12:20 PM EDT Office Visit Internal Medicine [place] [address] [place] [address] Caryn Lowery APRN.ICT SUPPORT ENGINEER [address] [place] [address] 4 week follow up [facility] [place] Comment on above: 4 week follow up Start: 01-31-2024 End: 01-31-2024 Patient encounter procedure 01/31/2024 2:00 PM EDT Office Visit Orthopaedics [address] [place] [address] Duran Blunt MD [address] [place] [place] [address] Right knee pain Orthopaedics Comment on above: Right knee pain Start: 01-24-2024 End: 01-24-2024 Patient encounter procedure Orthopaedics Comment on above: Right knee pain Right knee pain, uns pecified chronicity [M25.561] Start: 01-21-2024 End: 04-21-2024 Basic metabolic 2000 panel - Serum or Plasma [facility] Work Phone: Comment on above: Expected: 01/21/2024, Expires: Start: 01-16-2024 Covid-19 Vaccine ( season) Covid-19 Vaccine () [facility] Start: 01-16-2024 [facility]enza [facility] Start: 01-03-2024 End: 04-03-2024 Basic metabolic 2000 panel - Serum or Plasma [facility] Comment on above: Expected: 01/03/2024, Expires: 4 Start: 01-03-2024 End: 04-03-2024 Magnesium [Mass/volume] in Serum or Plasma [facility] Comment on above: Expected: 01/03/2024, Expires: 4 Start: 01-03-2024 End: 04-03-2024 Natriuretic peptide.B prohormone N-Terminal [Mass/volume] in Serum or Plasma [facility] Work Phone: Comment on above: Expected: 01/03/2024, Expires: Start: 01-03-2024 End: 01-03-2024 Patient encounter procedure 01/03/2024 1:00 PM EDT Office Visit Internal Medicine [place] [address] [facility] [place] [address] Caryn Lowery APRN.ICT SUPPORT ENGINEER [address] [facility] [place] [address] 4 week follow up Internal Medicine [place] Comment on above: 4 week follow up Start: 01-01-2024 ANNUAL PCP TEAM CHRONIC DISEASE VISIT ANNUAL PCP TEAM CHRONIC DISEASE VISIT [facility] Start: 12-15-2023 ANNUAL PCP TEAM CHRONIC DISEASE VISIT ANNUAL PCP TEAM CHRONIC DISEASE VISIT [facility] Start: 12-15-2023 BP CONTROLLED (<130/80) BP CONTROLLED (<130/80) [facility] Start: 12-03-2023 End: 12-03-2023 Patient encounter procedure 12/03/2023 1:40 PM EDT Office Visit Internal Medicine [place] [address] [facility] [place] [address] Caryn Lowery APRN.ICT SUPPORT ENGINEER [address] [facility] [place], [place] [address] 2 week follow up Internal Medicine [place] Comment on above: 2 week follow up Start: 11-29-2023 Hemoglobin A1c measurement HbA1C [facility] Start: 11-24-2023 ANNUAL PCP TEAM CHRONIC DISEASE VISIT ANNUAL PCP TEAM CHRONIC DISEASE VISIT [facility] Start: 11-24-2023 BP CONTROLLED (<130/80) BP CONTROLLED (<130/80) [facility] Start: 11-23-2023 End: 02-22-2024 SYPHILIS TOTAL W/REFLEX SYPHILIS TOTAL W/REFLEX Lab Routine STD exposure Expected: 11/23/2023, Expires: 02/22/2024 [facility] Work Phone: Comment on above: Expected: 11/23/2023, Expires: Start: 11-23-2023 End: 11-23-2023 Patient encounter procedure 11/23/2023 1:30 PM EDT Appointment [facility] [address] [place] [address] Epigastric pain [R10.13] [facility] Comment on above: Epigastric pain [R10.13] Start: 11-15-2023 End: 02-14-2024 Bacteria identified in Urine by Culture [facility] Comment on above: Expected: 11/15/2023, Expires: Start: 11-15-2023 End: 11-15-2023 Patient encounter procedure 11/15/2023 1:20 PM EDT Office Visit Internal Medicine [place] [address] [place], [place] [address] Caryn Lowery APRN.ICT SUPPORT ENGINEER [address] [place], [place] [address] Follow up Internal Medicine [place] Comment on above: Follow up Start: 10-29-2023 End: 10-29-2023 Patient encounter procedure 10/29/2023 2:20 PM EDT Office Visit Internal Medicine [place] [address] [place] [address] Caryn Loewry, ARCHITECTURAL DRAFTSMAN.ICT SUPPORT ENGINEER [address] [place], [place] [id number] 2 week follow up Internal Medicine [place] Comment on above: 2 week follow up Start: 10-15-2023 End: 01-14-2024 CBC W Auto Differential panel - Blood CBC + DIFF Lab Routine Essential hypertension Controlled type 2 diabetes mellitus without complication, without long-term current use of insulin (HCC) Expected: 10/15/2023 (Approximate), Expires: 01/14/2024 [facility] Work Phone: Comment on above: Expected: 10/15/2023 (Approximate), Expi res: 01/14/2024 Start: 10-15-2023 End: 01-14-2024 Comprehensive metabolic 2000 panel - Serum or Plasma COMP METABOLIC PANEL Lab Routine Other hyperlipidemia Essential hypertension Controlled type 2 diabetes mellitus without complication, without long-term current use of insulin (HCC) Expected: 10/15/2023 (Approximate), Expires: 01/14/2024 [facility] Work Phone: Comment on above: Expected: 10/15/2023 (Approximate), Expi res: 01/14/2024 Start: 10-15-2023 End: 01-14-2024 Hemoglobin A1c in Blood HGB A1C Lab Routine Controlled type 2 diabetes mellitus without complication, without long-term current use of insulin (HCC) Expected: 10/15/2023 (Approximate), Expires: 01/14/2024 [facility] Work Phone: Comment on above: Expected: 10/15/2023 (Approximate), Expi res: 01/14/2024 Start: 10-15-2023 End: 01-14-2024 Lipid 1996 panel - Serum or Plasma LIPID PANEL BASIC Lab Routine Other hyperlipidemia Expected: 10/15/2023 (Approximate), Expires: 01/14/2024 [facility] Work Phone: Comment on above: Expected: 10/15/2023 (Approximate), Expi res: 01/14/2024 Start: 10-15-2023 End: 01-14-2024 Thyrotropin [Units/volume] in Serum or Plasma TSH BLD Lab Routine Hypothyroidism, unspecified type Expected: 10/15/2023 (Approximate), Expires: 01/14/2024 [facility] Work Phone: Comment on above: Expected: 10/15/2023 (Approximate), Expi res: 01/14/2024 Start: 10-13-2023 End: 01-12-2024 HIV 1+2 Ab [Presence] in Serum or Plasma by Immunoassay [facility] Comment on above: Expected: 10/13/2023, Expires: Start: 10-13-2023 End: 01-12-2024 SYPHILIS TOTAL W/REFLEX [facility] Work Phone: Comment on above: Expected: 10/13/2023, Expires: Start: 08-27-2023 Hemoglobin A1c/Hemoglobin.total in Blood HbA1C [facility] Start: 08-25-2023 ANNUAL PCP TEAM CHRONIC DISEASE VISIT ANNUAL PCP TEAM CHRONIC DISEASE VISIT [facility] Start: 08-25-2023 BP CONTROLLED (<130/80) BP CONTROLLED (<130/80) [facility] in Start: 07-18-2023 ANNUAL PCP TEAM CHRONIC DISEASE VISIT ANNUAL PCP TEAM CHRONIC DISEASE VISIT [facility] Start: 06-30-2023 End: 07-14-2023 COVID & INFLUENZA A/B & RSV NAAT, ROUTINE COVID & INFLUENZA A/B & RSV NAAT, ROUTINE Microbiology Routine URI, acute Expected: 06/30/2023, Expires: 07/14/2023 [facility] Work Phone: Comment on above: Expected: 06/30/2023, Expires: Start: 06-03-2023 BP CONTROLLED (<130/80) BP CONTROLLED (<130/80) [facility] Start: 05-26-2023 Hemoglobin A1c/Hemoglobin.total in Blood HBA1C [facility] Start: 05-25-2023 ANNUAL PCP TEAM CHRONIC DISEASE VISIT ANNUAL PCP TEAM CHRONIC DISEASE VISIT [facility] Start: 05-25-2023 BP CONTROLLED (<130/80) BP CONTROLLED (<130/80) [facility] Start: 05-17-2023 Depression Assessment Depression Assessment [facility] Start: 05-03-2023 Anes dx/ther nerve block/injection prone pos ANESTH N BLOCK/INJ PRONE [facility] Start: 05-03-2023 Njx dx/ther sbst intrlmnr lmbr/sac w/img gdn NJX INTERLAMINAR LMBR/SAC [facility] Start: 05-03-2023 Fluoroscopic guidance O.R. Fluoro for C-Arm [facility] Start: 05-03-2023 Radiography of spine [facility] Start: 05-03-2023 Patient discharge [facility] Start: 04-15-2023 ANNUAL PCP TEAM CHRONIC DISEASE VISIT ANNUAL PCP TEAM CHRONIC DISEASE VISIT [facility] Start: 04-15-2023 BP CONTROLLED (<130/80) BP CONTROLLED (<130/80) [facility] Start: 04-08-2023 ANNUAL PCP TEAM CHRONIC DISEASE VISIT ANNUAL PCP TEAM CHRONIC DISEASE VISIT [facility] Start: 03-25-2023 ANNUAL PCP TEAM CHRONIC DISEASE VISIT ANNUAL PCP TEAM CHRONIC DISEASE VISIT [facility] Start: 03-25-2023 BP CONTROLLED (<130/80) BP CONTROLLED (<130/80) [facility] Start: 03-10-2023 Hepatitis B surface antibody level LDL CHOLESTEROL [facility] Start: 02-23-2023 End: 04-25-2023 CBC W Auto Differential panel - Blood CBC + DIFF Lab Routine Controlled type 2 diabetes mellitus without complication, without long-term current use of insulin (HCC) Expected: 02/23/2023 (Approximate), Expires: 04/25/2023 [facility] Work Phone: Comment on above: Expected: 02/23/2023 (Approximate), Expi res: 04/25/2023 Start: 02-23-2023 End: 04-25-2023 Comprehensive metabolic 2000 panel - Serum or Plasma COMP METABOLIC PANEL Lab Routine Other hyperlipidemia Controlled type 2 diabetes mellitus without complication, without long-term current use of insulin (HCC) Expected: 02/23/2023 (Approximate), Expires: 04/25/2023 [facility] Work Phone: Comment on above: Expected: 02/23/2023 (Approximate), Expi res: 04/25/2023 Start: 02-23-2023 End: 04-25-2023 Hemoglobin A1c in Blood HGB A1C Lab Routine Controlled type 2 diabetes mellitus without complication, without long-term current use of insulin (HCC) Expected: 02/23/2023 (Approximate), Expires: 04/25/2023 [facility] Work Phone: Comment on above: Expected: 02/23/2023 (Approximate), Expi res: 04/25/2023 Start: 02-23-2023 End: 04-25-2023 Lipid 1996 panel - Serum or Plasma LIPID PANEL BASIC Lab Routine Other hyperlipidemia Expected: 02/23/2023 (Approximate), Expires: 04/25/2023 [facility] Work Phone: Comment on above: Expected: 02/23/2023 (Approximate), Expi res: 04/25/2023 Start: 02-23-2023 End: 04-25-2023 Thyrotropin [Units/volume] in Serum or Plasma TSH BLD Lab Routine Hypothyroidism, unspecified type Expected: 02/23/2023 (Approximate), Expires: 04/25/2023 [facility] Work Phone: Comment on above: Expected: 02/23/2023 (Approximate), Expi res: 04/25/2023 Start: 02-20-2023 ANNUAL PCP TEAM CHRONIC DISEASE VISIT ANNUAL PCP TEAM CHRONIC DISEASE VISIT [facility] Start: 02-15-2023 Anes dx/ther nerve block/injection prone pos ANESTH N BLOCK/INJ PRONE [facility] Start: 02-15-2023 Njx dx/ther agt pvrt facet jt lmbr/sac 1 level INJ PARAVERT F JNT L/S 1 [facility] Start: 02-15-2023 Njx dx/ther agt pvrt facet jt lmbr/sac 2nd level INJ PARAVERT F JNT L/S 2 [facility] Start: 02-15-2023 Injection of facet joint [facility] Start: 02-15-2023 Injection of spinal epidural space [facility] Start: 02-15-2023 X-ray of lumbosacral spine L/S Spine Min 4 Views [facility] Start: 02-15-2023 Patient discharge [facility] Start: 01-23-2023 ANNUAL PCP TEAM CHRONIC DISEASE VISIT ANNUAL PCP TEAM CHRONIC DISEASE VISIT [facility] Start: 01-23-2023 BP CONTROLLED (<130/80) BP CONTROLLED (<130/80) [facility] Start: 01-15-[address] [facility] Start: 2023 COLOGUARD (FIT-DNA) COLOGUARD (FIT-DNA) [facility] Start: [address]HY [facility] Start: 2023 FECAL OCCULT BLOOD FECAL OCCULT BLOOD [facility] Start: 2023 Screening for malignant neoplasm of colon [facility] Start: [address] [facility] Start: 01-04-2023 Anes dx/ther nerve block/injection prone pos ANESTH N BLOCK/INJ PRONE [facility] Start: 01-04-2023 Njx dx/ther sbst intrlmnr lmbr/sac w/img gdn NJX INTERLAMINAR LMBR/SAC [facility] Start: 01-04-2023 Injection using fluoroscopic guidance [facility] Start: 01-04-2023 Patient discharge [facility] Start: 12-22-2022 ANNUAL PCP TEAM CHRONIC DISEASE VISIT ANNUAL PCP TEAM CHRONIC DISEASE VISIT [facility] Start: 12-19-2022 BP CONTROLLED (<130/80) BP CONTROLLED (<130/80) [facility] Start: 12-10-2022 Hemoglobin A1c/Hemoglobin.total in Blood HBA1C [facility] Start: 10-20-2022 ANNUAL PCP TEAM CHRONIC DISEASE VISIT ANNUAL PCP TEAM CHRONIC DISEASE VISIT [facility] Start: 10-20-2022 BP CONTROLLED (<130/80) BP CONTROLLED (<130/80) [facility] Start: 10-09-2022 Hepatitis B surface antibody level LDL CHOLESTEROL [facility] Start: 10-03-[address] [facility] Start: 09-08-2022 Hemoglobin A1c/Hemoglobin.total in Blood HBA1C [facility] Start: 08-24-2022 End: 10-24-2022 Magnesium [Mass/volume] in Serum or Plasma [facility] Work Phone: Comment on above: Expected: 08/24/2022, Expires: 3 Start: 08-24-2022 End: 10-24-2022 Thyrotropin [Units/volume] in Serum or Plasma [facility] Work Phone: Comment on above: Expected: 08/24/2022, Expires: 3 Start: 08-24-2022 End: 10-24-2022 Thyroxine (T4) free [Mass/volume] in Serum or Plasma [facility] Work Phone: Comment on above: Expected: 08/24/2022, Expires: 3 Start: 08-24-2022 End: 10-24-2022 Triiodothyronine (T3) [Mass/volume] in Serum or Plasma [facility] Work Phone: Comment on above: Expected: 08/24/2022, Expires: 3 Start: 08-03-2022 Injection of spinal epidural space [facility] Start: 08-03-2022 Injection using fluoroscopic guidance [facility] Start: 08-03-2022 Patient discharge [facility] Start: 07-23-2022 Hemoglobin A1c/Hemoglobin.total in Blood HBA1C [facility] Start: 07-17-2022 End: 09-16-2022 CBC W Auto Differential panel - Blood [facility] Work Phone: Comment on above: Expected: 07/17/2022, Expires: 3 Start: 07-17-2022 End: 09-16-2022 Comprehensive metabolic 2000 panel - Serum or Plasma [facility] Work Phone: Comment on above: Expected: 07/17/2022, Expires: 3 Start: 07-16-2022 BP CONTROLLED (<130/80) BP CONTROLLED (<130/80) [facility] Start: 07-03-2022 ANNUAL PCP TEAM CHRONIC DISEASE VISIT ANNUAL PCP TEAM CHRONIC DISEASE VISIT [facility] Start: 07-03-2022 COVID-19 VACCINE (#1) COVID-19 VACCINE (#1) [facility] Comment on above: Postponed from 1983 (Declined at t his time) Postponed from 07/12 (Declined at this time) Start: 07-03-2022 COVID-19 VACCINE (1) COVID-19 VACCINE (1) [facility] Comment on above: Postponed from 1983 (Declined at t his time) Start: 07-03-[address] [facility] Comment on above: Postponed from 01/10/1996 (Declined at t his time) Start: 05-25-2022 End: 07-25-2022 CBC W Auto Differential panel - Blood CBC + DIFF Lab Routine Epigastric pain Decreased appetite Nausea Dizziness Expected: 05/25/2022, Expires: 07/25/2022 [facility] Work Phone: Comment on above: Expected: 05/25/2022, Expires: 3 Start: 05-25-2022 End: 07-25-2022 Comprehensive metabolic 2000 panel - Serum or Plasma COMP METABOLIC PANEL Lab Routine Epigastric pain Decreased appetite Nausea Dizziness Expected: 05/25/2022, Expires: 07/25/2022 [facility] Work Phone: Comment on above: Expected: 05/25/2022, Expires: 3 Start: 05-25-2022 End: 07-25-2022 Hemoglobin A1c in Blood HGB A1C Lab Routine Controlled type 2 diabetes mellitus without complication, without long-term current use of insulin (HCC) Expected: 05/25/2022, Expires: 07/25/2022 [facility] Work Phone: Comment on above: Expected: 05/25/2022, Expires: 3 Start: 05-17-2022 DE[address]ION [address]ESS[address] ASSESSMENT [facility] Start: 03-25-2022 End: 05-25-2022 Amylase [Enzymatic activity/volume] in Serum or Plasma AMYLASE BLD Lab Routine RUQ pain Nausea Epigastric pain Diarrhea, unspecified type Expected: 03/25/2022, Expires: 05/25/2022 [facility] Work Phone: Comment on above: Expected: 03/25/2022, Expires: 3 Start: 03-25-2022 End: 05-25-2022 CBC W Auto Differential panel - Blood CBC + DIFF Lab Routine RUQ pain Epigastric pain Diarrhea, unspecified type Expected: 03/25/2022, Expires: 05/25/2022 [facility] Work Phone: Comment on above: Expected: 03/25/2022, Expires: 3 Start: 03-25-2022 End: 05-25-2022 Comprehensive metabolic 2000 panel - Serum or Plasma COMP METABOLIC PANEL Lab Routine RUQ pain Nausea Epigastric pain Diarrhea, unspecified type Expected: 03/25/2022, Expires: 05/25/2022 [facility] Work Phone: Comment on above: Expected: 03/25/2022, Expires: 3 Start: 03-25-2022 End: 05-25-2022 Lipase [Enzymatic activity/volume] in Serum or Plasma LIPASE BLD Lab Routine RUQ pain Nausea Epigastric pain Diarrhea, unspecified type Expected: 03/25/2022, Expires: 05/25/2022 [facility] Work Phone: Comment on above: Expected: 03/25/2022, Expires: 3 Start: 03-02-[address] [facility] Start: 03-02-2022 COLORECTAL CANCER SCREENING COLORECTAL CANCER SCREENING [facility] Start: 03-02-2022 Screening for malignant neoplasm of colon [facility] Start: 02-20-2022 End: 04-22-2022 CBC W Auto Differential panel - Blood CBC + DIFF Lab Routine Controlled type 2 diabetes mellitus without complication, without long-term current use of insulin (HCC) Expected: 02/20/2022, Expires: 04/22/2022 [facility] Work Phone: Comment on above: Expected: 02/20/2022, Expires: 2 Start: 02-20-2022 End: 04-22-2022 Comprehensive metabolic 2000 panel - Serum or Plasma COMP METABOLIC PANEL Lab Routine Controlled type 2 diabetes mellitus without complication, without long-term current use of insulin (HCC) Other hyperlipidemia Expected: 02/20/2022, Expires: 04/22/2022 [facility] Work Phone: Comment on above: Expected: 02/20/2022, Expires: 2 Start: 02-20-2022 End: 04-22-2022 Hemoglobin A1c in Blood HGB A1C Lab Routine Controlled type 2 diabetes mellitus without complication, without long-term current use of insulin (HCC) Expected: 02/20/2022, Expires: 04/22/2022 [facility] Work Phone: Comment on above: Expected: 02/20/2022, Expires: 2 Start: 02-20-2022 End: 04-22-2022 Lipid 1996 panel - Serum or Plasma LIPID PANEL BASIC Lab Routine Other hyperlipidemia Expected: 02/20/2022, Expires: 04/22/2022 [facility] Work Phone: Comment on above: Expected: 02/20/2022, Expires: 2 Start: 02-20-2022 End: 04-22-2022 Thyrotropin [Units/volume] in Serum or Plasma TSH BLD Lab Routine Hypothyroidism, unspecified type Expected: 02/20/2022, Expires: 04/22/2022 [facility] Work Phone: Comment on above: Expected: 02/20/2022, Expires: 2 Start: 01-15-[address] [facility] Start: 12-31-2021 Hemoglobin A1c/Hemoglobin.total in Blood HBA1C [facility] Start: 11-11-2021 Adult depression screening assessment DEPRESSION SCREENING [facility] Start: 10-15-2021 Hepatitis B surface antibody level LDL CHOLESTEROL [facility] Start: 10-07-2021 End: 12-07-2021 SCHEDULE LAB TESTING SCHEDULE LAB TESTING Lab Routine Expected: 10/07/2021, Expires: 12/07/2021 [facility] Work Phone: Comment on above: Expected: 10/07/2021, Expires: 2 Start: 05-17-2021 DEPRESSION ASSESSMENT DEPRESSION ASSESSMENT [facility] Start: 04-23-2021 Pneumococcal vaccination Pneumococcal Vaccine (2 - PPSV23 or PCV20) [facility] Start: 01-10-2020 PAP TESTING PAP TESTING [facility] Start: [address] [facility] Start: 2018 Screening for malignant neoplasm of breast Mammogram Screening [facility] Start: 08-23-2013 HPV TESTING HPV TESTING [facility] Start: 08-23-2013 PAP TESTING PAP TESTING [facility] Start: 08-23-2013 Screening for malignant neoplasm of cervix Cervical Cancer Screening [facility] Start: 01-10-2008 Zoledronic acid therapy ALPHA-1 ANTITRYPSIN DEFICIENCY SCREENING [facility] Start: 1997 HEPATITIS B (1 of 3 - Risk 3-dose series) HEPATITIS B (1 of 3 - Risk 3-dose series) [facility] Start: 1997 Hepatitis B Vaccine (1 of 3 - 19+ 3-dose series) Hepatitis B Vaccine (1 of 3 - 19+ 3-dose series) [facility] Start: 01-10-1996 BP CONTROLLED (<130/80) BP CONTROLLED (<130/80) [facility] Start: 01-10-1996 Depression Screening Depression Screening [facility] Start: 01-10-[address] [facility] Start: 01-10-1984 PNEUMOCOCCAL (1 - PCV) PNEUMOCOCCAL (1 - PCV) [facility] Start: 1978 COVID-19 VACCINE (#1) COVID-19 VACCINE (#1) [facility] Start: 1978 HEPATITIS B (1 of 3 - 3-dose series) HEPATITIS B (1 of 3 - 3-dose series) [facility] Start: 1978 Hepatitis B Vaccine (1 of 3 - 3-dose series) Hepatitis B Vaccine (1 of 3 - 3-dose series) [facility] Bacteria identified in Unspecified specimen by Respiratory culture RESPIRATORY CULTURE AND STAIN Microbiology Routine Shortness of breath Cough, unspecified type Wheezing Low O2 saturation Ordered: 02/17/2024 [facility] Work Phone: Comment on above: Ordered: 02/17/2024 Bacteria identified in Wound by Culture ABSCESS AND WOUND CULTURE WITH GRAM STAIN Microbiology Routine Boil Ordered: 04/01/2024 [facility] Work Phone: Comment on above: Ordered: 04/01/2024 C reactive protein [Mass/volume] in Serum or Plasma [facility] CBC W Auto Different ial panel - Blood [facility] Celiac disease screen [facility] Chlamydia trachomatis+Neisseria gonorrhoeae DNA [Presence] in Unspecified specimen by PREETI with probe detection GONORRHEA/CHLAMYDIA NAAT Lab Routine STD exposure 10/13/2023 12:[address] [facility] Clostridioides diffi cile toxin genes [Presence] in Stool by PREETI with probe detection C. DIFFICILE PCR Lab Routine Epigastric pain Vomiting and diarrhea 11/15/2023 9:[address] [facility] End: 06-17-2023 COLONOSCOPY DIAGNOSTIC COLONOSCOPY DIAGNOSTIC Endoscopy Routine Rectal bleeding Diarrhea, unspecified type 1 Occurrences starting 06/17/2022 until 06/17/2023 [facility] Work Phone: Comment on above: 1 Occurrences starting 06/17/2022 until 06/17/2023 COVID & INFLUENZA A/ B & RSV PCR, ROUTINE COVID & INFLUENZA A/B & RSV PCR, ROUTINE Microbiology Routine Shortness of breath Cough, unspecified type Wheezing Malaise 02/02/2024 12:[address] [facility] End: 05-08-2023 Ct abdomen & pelvis w/contrast material CT ABD/PEL W IVCON Radiology STAT Left lower quadrant abdominal pain 1 Occurrences starting 04/08/2022 until 05/08/2023 [facility] Work Phone: Comment on above: 1 Occurrences starting 04/08/2022 until 05/08/2023 End: 03-18-2025 CT Chest W contrast IV CT CHEST W IVCON Radiology Routine Shortness of breath Cough, unspecified type Wheezing Low O2 saturation 1 Occurrences starting 02/17/2024 until 03/18/2025 [facility] Comment on above: 1 Occurrences starting 02/17/2024 until 03/18/2025 CT Chest W contrast IV CT CHEST W IVCON Radiology Routine Shortness of breath Cough, unspecified type Wheezing Low O2 saturation 02/29/2024 2:25 PM EDT [facility] Work Phone: End: 02-03-2025 CTA Pulmonary arteries for pulmonary embolus W contrast IV CT CHEST W IVCON PE Radiology STAT Chest pain, unspecified type Shortness of breath Palpitations Elevated d-dimer 1 Occurrences starting 01/05/2024 until 02/03/2025 [facility] Work Phone: Comment on above: 1 Occurrences starting 01/05/2024 until 02/03/2025 End: 11-10-2025 CTA Pulmonary arteries for pulmonary embolus W contrast IV CTA CHEST (NONGATED) W IVCON PE Radiology STAT Chest pain, unspecified type SOB (shortness of breath) Elevated d-dimer 1 Occurrences starting 10/11/2024 until 11/10/2025 [facility] Work Phone: Comment on above: 1 Occurrences starting 10/11/2024 until 11/10/2025 End: 12-30-2024 DBT Breast - bilateral screening JET SCREENING [facility] Radiology Routine Encounter for screening mammogram for breast cancer 1 Occurrences starting 12/01/2023 until 12/30/2024 [facility] Work Phone: Comment on above: 1 Occurrences starting 12/01/2023 until 12/30/2024 End: 11-30-2025 DBT Breast - bilateral screening JET SCREENING [facility] Radiology Routine Encounter for screening mammogram for breast cancer 1 Occurrences starting 10/31/2024 until 11/30/2025 [facility] Work Phone: Comment on above: 1 Occurrences starting 10/31/2024 until 11/30/2025 End: 08-25-2023 Echocardiography ECHO Cardiology Routine Shortness of breath Chest pain, unspecified type 1 Occurrences starting 08/24/2022 until 08/25/2023 [facility] Work Phone: Comment on above: 1 Occurrences starting 08/24/2022 until 08/25/2023 End: 06-03-2023 EGD DIAGNOSTIC EGD DIAGNOSTIC Endoscopy Routine Nausea Epigastric pain Decreased appetite 1 Occurrences starting 06/03/2022 until 06/03/2023 [facility] Work Phone: Comment on above: 1 Occurrences starting 06/03/2022 until 06/03/2023 End: 06-17-2023 EGD DIAGNOSTIC EGD DIAGNOSTIC Endoscopy Routine Epigastric pain Nausea and vomiting, unspecified vomiting type 1 Occurrences starting 06/17/2022 until 06/17/2023 [facility] Work Phone: Comment on above: 1 Occurrences starting 06/17/2022 until 06/17/2023 End: 03-07-2025 EMG(NEURO/NI) EMG(NEURO/NI) EMG Routine 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 Erythrocyte sediment ation rate [facility] EXTRA ECOFIX CONTAIN ER PERFORMABLE EXTRA ECOFIX CONTAINER PERFORMABLE Lab Routine Epigastric pain 11/16/2023 4:[address] [facility] Imaging of liver [facility] Immunoglobulin measurement [facility] LAB EXTRA TUBES LAB EXTRA TUBES Lab Routine Epigastric pain 11/16/2023 4:[address] [facility] Lactate dehydrogenas e measurement [facility] End: 01-29-2024 [facility] SCREENING JET SCREENING Radiology Routine Encounter for screening mammogram for breast cancer 1 Occurrences starting 12/30/2022 until 01/29/2024 [facility] Work Phone: Comment on above: 1 Occurrences starting 12/30/2022 until 01/29/2024 Measurement of respiratory function [facility] Patient referral [facility] Work Phone: Radionuclide gastric emptying study [facility] Radionuclide imaging of liver and/or biliary tract using radioactive isotope [facility] End: 02-27-2023 Screening mammography bi 2-view breast inc cad JET SCREENING Radiology Routine Encounter for screening mammogram for breast cancer 1 Occurrences starting 01/28/2022 until 02/27/2023 [facility] Work Phone: Comment on above: 1 Occurrences starting 01/28/2022 until 02/27/2023 Serum immunofixation [facility] US Abdomen limited [facility] End: 12-14-2024 US Abdomen RUQ US ABD RIGHT UPPER QUADRANT Radiology VICTORINO Epigastric pain Vomiting and diarrhea 1 Occurrences starting 11/15/2023 until 12/14/2024 [facility] Work Phone: Comment on above: 1 Occurrences starting 11/15/2023 until 12/14/2024 End: 04-24-2023 Us abdominal real time w/image limited US ABD RT UPPER QUADRANT Radiology Routine RUQ pain Nausea Epigastric pain Diarrhea, unspecified type 1 Occurrences starting 03/25/2022 until 04/24/2023 [facility] Work Phone: Comment on above: 1 Occurrences starting 03/25/2022 until 04/24/2023 End: 08-25-2023 US LEG VEIN DVT UNL VAS LAB US LEG VEIN DVT UNL VAS LAB Vascular Lab Routine Left leg swelling Left leg pain 1 Occurrences starting 08/24/2022 until 08/25/2023 [facility] Work Phone: Comment on above: 1 Occurrences starting 08/24/2022 until 08/25/2023 End: 03-03-2025 XR Chest PA and Lateral XR CHEST 2V FRONTAL/LAT Radiology Routine Shortness of breath Cough, unspecified type Wheezing Acute sinusitis, recurrence not specified, unspecified location 1 Occurrences starting 02/02/2024 until 03/03/2025 [facility] Work Phone: Comment on above: 1 Occurrences starting 02/02/2024 until 03/03/2025 End: 02-17-2025 XR Knee - right 4 Views XR KNEE GENERAL 4V AP BOTH/PA BOTH/LAT/MERC RIGHT Radiology Routine Right knee pain, unspecified chronicity 1 Occurrences starting 01/19/2024 until 02/17/2025 [facility] Work Phone: Comment on above: 1 Occurrences starting 01/19/2024 until 02/17/2025 [facility] Immunizations Immunization Date Immunization Notes Care Provider [facility] 04-28-2024 influenza, seasonal, injectable Caryn Older ARCHITECTURAL DRAFTSMAN.ICT SUPPORT ENGINEER Work Phone: [facility] 04-28-2024 pneumococcal conjuga te (PCV20) vaccine, 20 valent (PREVNAR 20) Caryn Older ARCHITECTURAL DRAFTSMAN.ICT SUPPORT ENGINEER Work Phone: [facility] 04-28-2024 pneumococcal Conjuga te, unspecified formulation Caryn Older ARCHITECTURAL DRAFTSMAN.ICT SUPPORT ENGINEER Work Phone: [facility] Work Phone: 04-28-2024 influenza virus vaccine, unspecified formulation Caryn Older ARCHITECTURAL DRAFTSMAN.ICT SUPPORT ENGINEER Work Phone: [facility] 06-02-2023 influenza, injectabl e, quadrivalent, contains preservative Babar Phillip MD Work Phone: [facility] 06-02-2023 influenza virus vaccine, unspecified formulation Caryn Older ARCHITECTURAL DRAFTSMAN.ICT SUPPORT ENGINEER Work Phone: [facility] 02-20-2022 influenza, injectabl e, quadrivalent, contains preservative Caryn Lowery ARCHITECTURAL DRAFTSMAN.ICT SUPPORT ENGINEER Work Phone: [facility] 02-20-2022 influenza virus vaccine, unspecified formulation Caryn Lowery ARCHITECTURAL DRAFTSMAN.ICT SUPPORT ENGINEER Work Phone: [facility] 02-26-2021 pneumococcal conjuga te vaccine, [address] Babar Phillip Work Phone: [facility] 02-16-2020 influenza, injectabl e, quadrivalent, contains preservative Duran Blunt MD Work Phone: [facility] 10-03-2012 tetanus toxoid, redu anne diphtheria toxoid, and acellular pertussis vaccine, adsorbed Duran Blunt MD Work Phone: [facility] Payers Date Payer Category Payer Self-pay [id number] 2022 Unknown [id number] 2017 Medicaid [employer] [place] [employer] [id number] 2017-Present [phone] [place] [id number] Medicaid [id number] 2017 Medicaid [id number] 2008 Unknown [id number] 2008 Unknown [facility] [id number] 1978 Unknown [id number] 1978 Unknown [id number] 1978 Unknown [id number] 1978 Unknown [id number] Unknown [id number] Unknown [id number] Unknown [id number] Unknown [id number] Unknown [id number] Unknown [id number] Unknown [id number] Unknown [id number] Unknown [id number] Social History Date Type Detail Facility Start: 05-17-1992 End: 02-21-2024 Tobacco smoking status ALIS Smokes tobacco daily [facility] Work Phone: Start: 05-17-1992 History of tobacco use Cigarette Smo ker [facility] Start: 11-12-2020 End: 08-25-2021 Alcohol intake Current drinker of alcohol (finding) [facility] Start: 03-22-2020 End: 02-14-2022 History SDOH Alcohol Frequency 2 [facility] Start: 03-22-2020 End: 02-14-2022 History SDOH Alcohol Std Drinks 1 [facility] Start: 03-31-2011 History SDOH Alcohol Comment Seldom- uses once every couple months [facility] Start: 04-25-2019 End: 03-22-2020 History SDOH Social Connections Phone 5 [facility] Start: 03-22-2020 End: 05-24-2022 History SDOH Social Connections [facility] [address] [facility] Start: 04-25-2019 History SDOH Social Connections Living 8 [facility] Start: 04-25-2019 End: 05-24-2022 History SDOH Physical Activity DPW 3 [facility] Start: 11-14-[address] [facility] Start: 1980 Sex Assigned At Female C [facility] Start: 10-13-2020 End: 01-22-2022 Exposure to SARS-CoV-2 (event) Not sure [facility] Work Phone: Start: 10-10-2021 End: 10-20-2021 Exposure to SARS-CoV-2 (event) Unable to assess [facility] Start: 03-26-2017 End: 11-23-2022 Cigarettes smoked current (pack per day) - Reported 0.5 [facility] Start: 03-26-2017 End: 02-21-2024 Tobacco use and exposure Smokeless tobacco non-user [facility] Work Phone: Start: 02-19-2021 End: 07-14-2023 Tobacco smoking status Heavy tobacco smoker (finding) [facility] Sex Assigned At [facility] Start: 06-03-2022 End: 12-24-2024 Alcohol intake Ex-drinker (finding) [facility] Start: 07-27-2022 End: 05-13-2023 Tobacco smoking status ALIS Unknown if ever smoked [facility] Start: 12-13-2019 None [facility] Start: 05-24-2019 Spouse/ Signif icant Other [facility] Start: 12-22-2019 Cigarettes [facility] Start: 05-24-2022 End: 11-23-2022 Social connection and isolation panel [facility] Start: 04-17-2012 Frequency of Communication with Friends and Family Not on file [facility] (I/We) worried wheth er (my/our) food would run out before (I/we) got money to buy more. DK or Refused [facility] Start: 08-19-2018 Gender identity Identifies as female gender (finding) [facility] Start: 08-19-2018 Sexual orientation Heterosexual (marivel logan) [facility] Do you feel stress - tense, restless, nervous, or anxious, or unable to sleep at night because your mind is troubled all the time - these days [OSQ] To some extent [facility] Start: 08-19-2017 Occasional [facility] Do you belong to any clubs or organizations such as muslim groups, unions, fraternal or athletic groups, or school groups? Yes [facility] How often to you hav e a drink containing alcohol? Monthly or less [facility] How many standard drinks containing alcohol do you have on a typical day? 1 or 2 [facility] (I/We) worried irma er (my/our) food would run out before (I/we) got money to buy more. Never true [facility] In the past 12 month s, was there a time when you were not able to pay the mortgage or rent on time? No [facility] Are you now , , , , never or living with a partner? Living with partner [facility] How often to you hav e a drink containing alcohol? Never [facility] How hard is it for y ou to pay for the very basics like food, housing, medical care, and heating Not very hard [facility] Do you feel stress - tense, restless, nervous, or anxious, or unable to sleep at night because your mind is troubled all the time - these days [OSQ] Rather much [facility] Start: 02-21-2024 Tobacco Comment 02/2024 - down to 5 or [address] [facility] Start: 12-09-2013 Sex Female (finding) [facility] NEGATED: Highlighted row [facility] Medical Equipment Procedure Code Equipment Code Equipment Original Text Equipment Identifier Dates [id number], [id number], [id number] Start: 05-22-2022 End: 07-29-2023 Comment on above: Test blood sugar(s) 4 times daily. Dx: Type 2 DM - Controlled E11.9 Insulin: No Test blood sugar(s) 4 times daily. Goals Date Patient Goal Desired Activity /State Functional Status Date Assessment Result Facility 01-04-2024 Functional Status Independent [facility] 01-04-2024 Functional Status Ambulation in [facility] 07-14-2023 Functional Status Standard Safet y ID band on, Allergy Band on, Call device within reach, Bed in low position, Wheels locked, Upper/Half-Length side-rails up, Bedside Cart Locked, Safety level maintained [facility] 01-11-2023 Functional Status Independent Fannin Micheal velasquez [facility] 10-26-2014 Are you deaf, or do you have serious difficulty hearing Yes 10/26/2014 12:38 PM Katie Gibbons MA Yes [facility] 10-26-2014 Are you blind, or do you have serious difficulty seeing, even when wearing glasses No 10/26/2014 12:38 PM Katie Gibbons MA No [facility] 10-26-2014 Do you have serious difficulty walking or climbing stairs No 10/26/2014 12:38 PM Katie Gibbons MA No [facility] 10-26-2014 Do you have difficul ty dressing or bathing No 10/26/2014 12:38 PM Katie Gibbons MA No [facility] 10-26-2014 Because of a physica l, mental, or emotional condition, do you have difficulty doing errands alone such as visiting a physician's office or shopping No 10/26/2014 12:38 PM Katie Gibbons MA No [facility] Mental Status Date Assessment Result Facility 01-04-2024 Mental Status Orientation Oriented x 4 [facility] 01-04-2024 Mental Status [facility] 07-14-2023 Mental Status Orientation Oriented x 4 [facility] 05-03-2023 Cognitive function Voice/Name [facility] Work Phone: 05-03-2023 Cognitive function Patient Orien tation Person;Place;Time [facility] Work Phone: 02-15-2023 Cognitive function Voice/Name [facility] Work Phone: 01-11-2023 Mental Status Oriented x 4 [facility] 01-04-2023 Cognitive function Voice/Name [facility] Work Phone: 08-03-2022 Cognitive function Voice/Name Dinah Marx [facility] Work Phone: 10-26-2014 Because of a physica l, mental, or emotional condition, do you have serious difficulty concentrating, remembering, or making decisions No 10/26/2014 12:38 PM EDT Katie Moon MA No [facility] Clinical Notes 02-23-2018 to 12-24-2024 Jazmyne Wyatt APRN.ICT SUPPORT ENGINEER - 12/24/2024 3:02 PM EDTTelephone Encounter - Hope Dickey LPN - 11/21/2024 1:10 PM EDTTelephone Encounter - Hope Dickey LPN - 11/21/2024 1:10 PM EDT Note Date & Type Note Facility 12-24-2024 History of Present illness Narrative Images from the original note were not included. [facility] Reinoso is a 44 year old female. Patient presents with: Abscess: Under left breast HPI Breast Lesion: - Noticed a small pimple on the breast night, which has since spread significantly. - Describes the area as extremely sore and feels welded. - Currently on Doxycycline. - Has a follow-up appointment with primary care provider tomorrow at 14:45. - History of a similar lesion lanced approximately 6-12 months ago. Review of Systems Breast: (+) breast pain, (+) breast warmth Gastrointestinal: (+) nausea Neurological: (+) dizziness Objective BP 130/82 Pulse 94 Temp 36.9 C (98.4 F) (Tympanic) Resp 18 Wt (!) 143.2 kg (315 lb 11.2 oz) LMP 05/19/2024 (Exact Date) SpO2 97% BMI 57.74 kg/m PAST MEDICAL HISTORY[1] PAST SURGICAL HISTORY Procedure Laterality Date COLONOSCOPY FLX DX W/COLLJ SPEC WHEN PFRMD 03/02/2017 Colonoscopy HEMORRHOIDECTOMY INCISE FINGER TENDON SHEATH Right 2002 INCISE FINGER TENDON SHEATH Right 07/23/2021 Right thumb and middle trigger finger releases LAPS ABD PRTM&OMENTUM DX W/WO SPEC BR/WA SPX Laparoscopy, diagnostic LIG/TRNSXJ FLP TUBE ABDL/VAG APPR UNI/BI Tubal ligation OVARIAN CYSTECTOMY 1990 ovarian cysts removed PAST SURGICAL HISTORY OF 1999 ORIF left ankle PAST SURGICAL HISTORY OF right middle finger surgery, staph debridment. PAST SURGICAL HISTORY OF 07/28/2013 left carpal tunnel release RECTAL EXAM UNDER ANESTHESIA 2014 REVISE MEDIAN N/CARPAL TUNNEL SURG 06/08/2014 right capral tunnel release TNOT ELBOW LATERAL/MEDIAL DEBRIDE OPEN Right 04/02/2017 Right elbow extensor tendon debridement TNOT ELBOW LATERAL/MEDIAL DEBRIDE OPEN Left 05/18/2018 Left elbow extensor tendon debridement TONSILLECTOMY PRIMARY/SECONDARY <AGE 12 Tonsillectomy ALLERGIES Amoxicillin, Codeine, Darvocet A500 [Propoxyphene N-Acetaminophen], Propoxyphene, and Sulfa (Sulfonamide Antibiotics) MEDICATIONS rrdnhzjk-rtqzhnesz-ppmbglzyghggzw (CORTISPORIN) 3.5-10,000-1 mg/mL-unit/mL-% otic suspension Use 4 drops in both ears three times a day for 7 days. doxycycline monohydrate 100 mg tablet Take 1 tablet by mouth two times a day for 7 days. ondansetron orally disintegrating (ZOFRAN ODT) 4 mg disintegrating tablet Take 1 tablet by mouth every 6 hours as needed for nausea/vomiting. furosemide (LASIX) 40 mg tablet Take 1 tablet by mouth once daily. dulaglutide (TRULICITY) 1.5 mg/0.5 mL pen injector Inject 1.5 mg subcutaneously one time a week. Inject dose once per week. Discard Pen After albuterol HFA (VENTOLIN HFA) 90 mcg/actuation inhaler Inhale 2 puffs as instructed every 4 hours as needed for wheezing/shortness of breath. mometasone-formoterol (DULERA) 200-5 mcg/actuation inhaler Inhale 2 puffs as instructed two times a day. omeprazole (PRILOSEC) 40 mg capsule TAKE 1 CAPSULE BY MOUTH DAILY 1/2 HOUR BEFORE BREAKFAST montelukast (SINGULAIR) 10 mg tablet Take 1 tablet by mouth daily at bedtime. levothyroxine (SYNTHROID) 50 mcg tablet TAKE 1 TABLET BY MOUTH DAILY TAKE ON EMPTY STOMACH. FOR THYROID mupirocin (BACTROBAN) 2 % ointment Apply 1 application to affected area three times a day. fluticasone-salmeterol HFA (ADVAIR HFA) 115-21 mcg/actuation inhaler Inhale 2 Puffs as instructed two times a day. flash glucose sensor (FREESTYLE ANA PAULA 2 SENSOR) kit USE TO CHECK BLOOD SUGAR DAILY famotidine (PEPCID) 20 mg tablet Take 1 tablet by mouth daily at bedtime. potassium chloride (K-TAB) 10 mEq tablet Take 1 tablet by mouth daily with breakfast. Take with lasix cetirizine (ZYRTEC) 10 mg tablet Take 1 tablet by mouth once daily. metoprolol tartrate, short acting, (LOPRESSOR) 25 mg tablet Take 1 tablet by mouth two times a day. ibuprofen (MOTRIN) 600 mg tablet Take 1 tablet by mouth every 8 hours as needed for pain. Nebulizer Accessories kit 1 Each every 4 hours as needed (wheezing or shortness of breath). albuterol (PROVENTIL) 2.5 mg /3 mL (0.083 %) nebulizer solution Use 3 mL via nebulizer every 4 hours as needed for wheezing/shortness of breath. Use over 5-15minutes. Blood Pressure Monitor 1 Each as directed. Dispense with Extra Large Cuff Blood Pressure Kit-Extra Large kit 1 Each once daily. lancets (RyzingET SUPER THIN LANCETS) 30 gauge Test blood sugar(s) 4 times daily. blood sugar diagnostic (TRUE METRIX GLUCOSE TEST STRIP) test strip Test blood sugar(s) 4 times daily. diclofenac (VOLTAREN) 1 % topical gel Apply 2 g to affected area twice daily as needed. TRUE METRIX GLUCOSE METER test blood sugar DIRECTED lamoTRIgine (LAMICTAL) 200 mg tablet Take 200 mg by mouth daily at bedtime. glucose 4 gram chewable tablet Take 3-4 tablets for hypoglycemia. Recheck blood sugar in 15 min after dose flash glucose scanning reader (FREESTYLE ANA PAULA 2 READER) 1 Each once daily. lidocaine (ANECREAM5) crea Apply to affected area as needed. ipratropium-albuterol (DUONEB) 0.5 mg-3 mg(2.5 mg base)/3 mL nebu INHALE 3 ML INSTRUCTED EVERY 4 HOURS NEEDED FAMILY HISTORY[2] SOCIAL HISTORY[3] Physical Exam Constitutional: Appearance: Normal appearance. She is normal weight. Cardiovascular: Rate and Rhythm: Normal rate. Pulmonary: Effort: Pulmonary effort is normal. Chest: Chest wall: Swelling, tenderness and edema present. Breasts: Right: Normal. Left: Skin change and tenderness present. Comments: Indurated erythremic swollen left breast 5cm x6cm no lymphatic streaking or lymphadenopathy Lymphadenopathy: Upper Body: Right upper body: No supraclavicular, axillary or pectoral adenopathy. Left upper body: No supraclavicular, axillary or pectoral adenopathy. Neurological: Mental Status: She is alert. { 1. Left breast abscess (N61.1) 2. Cellulitis of skin (L03.90) - Exam findings consistent with a deep abscess, likely staphylococcal in origin; not amenable to incision and drainage in clinic due to extent and depth. - Continue doxycycline as prescribed. - General surgery consult scheduled for Wednesday at 2:[address] Gary in the [place] office for further evaluation. - Advised to seek emergency care if fever or tachycardia develops, or if condition worsens prior to scheduled surgery consult. - Instructed to follow up with primary care provider as scheduled on Wednesday at 2:45 PM at scheduled. and Recording using [employer] software for draft documentation of the visit was discussed with the patient/authorized appeals representative; all questions welcomed and answered. Patient/authorized appeals representative agreed to proceed Differential Diagnoses - abscess is more likely for the following reason(s): suggested by H&P - sepsis is less likely for the following reason(s): vitals stable, H&P not suggestive [1] Past Medical History: No date: Adjustment disorder with depressed mood No date: Anxiety state, unspecified No date: Dysmenorrhea No date: Hearing loss Comment: no aids No date: EAMON on CPAP No date: Other and unspecified ovarian cyst Comment: Ovarian cyst No date: RECOVERING Comment: ALCOHOL, MARIJUANA & COCAINE [2] Review of patient's family history indicates: Problem: Heart Relation: Mother Age of Onset: (Not Specified) Problem: Hypertension Relation: Father Age of Onset: (Not Specified) Problem: Psychiatry Relation: Father Age of Onset: (Not Specified) Comment: Bipolar Problem: Obesity Relation: Father Age of Onset: (Not Specified) Problem: Psychiatry Relation: Sister Age of Onset: (Not Specified) Problem: No Known Problems Relation: Brother Age of Onset: (Not Specified) Problem: No Known Problems Relation: Maternal Grandmother Age of Onset: (Not Specified) Problem: Cancer Relation: Maternal Grandfather Age of Onset: (Not Specified) Problem: Diabetes Relation: Paternal Grandmother Age of Onset: (Not Specified) Problem: Stroke Relation: Paternal Grandmother Age of Onset: (Not Specified) Comment: Great Grandmother Problem: No Known Problems Relation: Paternal Grandfather Age of Onset: (Not Specified) Problem: Cancer Relation: Paternal Aunt Age of Onset: (Not Specified) Problem: other ([place]) Relation: Paternal Aunt Age of Onset: (Not Specified) Comment: Great aunt Problem: Colon Cancer Relation: No Family History Age of Onset: (Not Specified) [3] Social History Tobacco Use Smoking status: Every Day Current packs/day: 0.50 Average packs/day: 0.5 packs/day for 32.6 years (16.3 ttl pk-yrs) Types: Cigarettes Start date: 05/17/1992 Smokeless tobacco: Never Tobacco comments: 02/2024 - down to 5 or 6 per day Vaping Use Vaping status: Never Used Substance Use Topics Alcohol use: Not Currently Comment: Seldom- uses once every couple months Drug use: Not Currently Comment: marijuana h/o, 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 documented in this encounter [facility] 12-23-2024 Hospital Discharge instructions Patient Education 12/23/2024 18:05:59 Cellulitis Skin Infection Cellulitis Cellulitis is an infection of the deep layers of skin. A break in the skin, such as a cut or scratch, can let bacteria under the skin. If the bacteria get to deep layers of the skin, it can be serious. If not treated, cellulitis can get into the bloodstream and lymph nodes. The infection can then spread throughout the body. This causes serious illness. Cellulitis causes the affected skin to become red, swollen, warm, and sore. The reddened areas have a visible border. An open sore may leak fluid (pus). You may have a fever, chills, and pain. Cellulitis is treated with antibiotics taken for 7 to 10 days. An open sore may be cleaned and covered with cool wet gauze. Symptoms should get better 1 to 2 days after treatment is started. Make sure to take all the antibiotics for the full number of days until they are gone. Keep taking the medicine even if your symptoms go away. Home care Follow these tips: Limit the use of the part of your body with cellulitis. If the infection is on your leg, keep your leg raised while sitting. This will help to reduce swelling. Take all of the antibiotic medicine exactly as directed until it is gone. Do not miss any doses, especially during the first 7 days. Don t stop taking the medicine when your symptoms get better. Keep the affected area clean and dry. Wash your hands with soap and warm water before and after touching your skin. Anyone else who touches your skin should also wash his or her hands. Don't share towels. Follow-up care Follow up with your healthcare provider, or as advised. If your infection does not go away on the first antibiotic, your healthcare provider will prescribe a different one. When to seek medical advice Call your healthcare provider right away if any of these occur: Red areas that spread Swelling or pain that gets worse Fluid leaking from the skin (pus) Fever higher of 100.4 F (38.0 C) or higher after 2 days on antibiotics [id number] [employer]. [address] [place] [address], [place] [address]. All rights reserved. This information is not intended as a substitute for professional medical care. Always follow your healthcare professional's instructions. Follow Up Care 12/23/2024 17:28:37 With:BABAR PHILLIP MD Address: [address] [facility] [place] [id number]- When:2-4 days [facility] 12-23-2024 Note Discharge Instructions Thank you for allowing [facility] to assist you with your healthcare needs. The following is important discharge information regarding your hospital visit. Diagnosis from Today's Visit Cellulitis What to Do Next Instructions from Your Care Team No qualifying data available. Post Acute Orders No qualifying data available. You Need to Schedule the Following Appointments Follow Up with BABAR PHILLIP MD When:Within 2-4 days Where:[address] [place] [place] [id number]- Allergies amoxicillin codeine penicillin sulfa drugs Medications Please ask your primary doctor or pharmacist before taking any other medication not listed, including over the counter drugs, herbal medications, vitamins and or supplements as they may interact with your home medications. What How Much When Why Instructions Last Dose Unchanged atorvastatin by mouth Once a day Unchanged famotidine (famotidine 20 mg oral tablet) 1 tab(s) by mouth Two (2) times a day Duration: 5 Days Unchanged furosemide (Lasix 20 mg oral tablet) 2 tab(s) by mouth Once a day Acute exacerbation of COPD Edema of both lower legs Unchanged loratadine (loratadine 10 mg oral tablet) 1 tab(s) by mouth Once a day before a meal Unchanged methylPREDNISolone (Medrol Dosepak 4 mg oral tablet) 1 Packet(s) by mouth Once a day Acute exacerbation of COPD Edema of both lower legs Duration: 6 Days as directed on package labeling Unchanged nortriptyline (nortriptyline 10 mg oral capsule) 1 cap by mouth Three (3) times a day Unchanged predniSONE (predniSONE 10 mg oral tablet) 1 tab(s) by mouth Two (2) times a day Duration: 3 Days with food Unchanged ranitidine (ranitidine 150 mg oral tablet (NF)) 1 tab(s) by mouth Once a day (in the morning) Unchanged tiZANidine (tiZANidine 2 mg oral tablet) 2 tab(s) by mouth Every 8 hours Unchanged zolpidem (Ambien) by mouth Daily at bedtime Please take this list to your next doctor s visit. Bring all medications you take, including over the counter medications, herbals and other supplements with you to your doctor s visit. Patients and families are reminded to discard old lists and to update any records with all medication providers or retail pharmacies. Education Materials Cellulitis Cellulitis is an infection of the deep layers of skin. A break in the skin, such as a cut or scratch, can let bacteria under the skin. If the bacteria get to deep layers of the skin, it can be serious. If not treated, cellulitis can get into the bloodstream and lymph nodes. The infection can then spread throughout the body. This causes serious illness. Cellulitis causes the affected skin to become red, swollen, warm, and sore. The reddened areas have a visible border. An open sore may leak fluid (pus). You may have a fever, chills, and pain. Cellulitis is treated with antibiotics taken for 7 to 10 days. An open sore may be cleaned and covered with cool wet gauze. Symptoms should get better 1 to 2 days after treatment is started. Make sure to take all the antibiotics for the full number of days until they are gone. Keep taking the medicine even if your symptoms go away. Home care Follow these tips: Limit the use of the part of your body with cellulitis. If the infection is on your leg, keep your leg raised while sitting. This will help to reduce swelling. Take all of the antibiotic medicine exactly as directed until it is gone. Do not miss any doses, especially during the first 7 days. Don t stop taking the medicine when your symptoms get better. Keep the affected area clean and dry. Wash your hands with soap and warm water before and after touching your skin. Anyone else who touches your skin should also wash his or her hands. Don't share towels. Follow-up care Follow up with your healthcare provider, or as advised. If your infection does not go away on the first antibiotic, your healthcare provider will prescribe a different one. When to seek medical advice Call your healthcare provider right away if any of these occur: Red areas that spread Swelling or pain that gets worse Fluid leaking from the skin (pus) Fever higher of 100.4 F (38.0 C) or higher after 2 days on antibiotics [id number] [employer]. [address] [place] [address]. All rights reserved. This information is not intended as a substitute for professional medical care. Always follow your healthcare professional's instructions. Additional Information VACCINATE! IT SAVES LIVES! Members of the community who have not yet received the COVID-19 vaccine and would like to receive it can visit one of [facility] vaccine clinics. There are many vaccine clinic locations within the [facility]. For locations and available times, please visit [email or web address] It is important to note that some COVID mobile vaccine clinics are held outdoors and may be canceled in rainy or stormy conditions. To learn more about pediatric vaccinations (ages 5-11), we invite you to visit the [facility] webpage. [email or web address] To learn more about the COVID-19 vaccine, we invite you to visit the CDC website for a list of frequently asked questions. https://www.cdc.gov/coronavirus/2 019-ncov/vaccines/faq.html [facility] Patient Portal Access Instructions: Stay connected with your healthcare team and access your personal medical information anytime with the [facility] Patient Portal. If you would like a full copy of your medical records please contact the [facility] Medical Records Department Wednesday through Wednesday between 8a.m. and 4:30p.m. Please follow the directions below to access the portal: 1.Access the email account you provided upon registration to the [facility].2.Look for an invitation email from [facility].3.Open the email and access the invitation link: Accept Invitation to [facility]4.Fill in the required brewster to create your account. Sign into [email or web address] with your username and password that you created in the above steps to stay up to date. You can then view a summary of results, a summary of your visits, and the ability to download your summaries to your computer or send the information securely to a physician. Remember that your healthcare information is confidential, so carefully consider who you will allow to register on the [facility] Patient Portal for access to your information. You can also access the [facility] Patient Portal on the [employer] dominguez. Simply click on Health Records under Health Data and then click on the Intent logo. HOW TO SAFELY DISPOSE OF PRESCRIPTION MEDICATIONS Please use one of the following methods to safely dispose of your unused medications. 1.Use a drug disposal kit: the drug disposal pouch allows you to safely discard your old and unused drugs. Ask your nurse to give you one when you are discharged.2.Visit a local take-back location: Many local pharmacies and police departments have programs that collect old and unwanted prescription drugs. Call your local pharmacy or go to http://bit.Disconnect/4Q7Dd4z to find one close to you.3.Make use of household items: Use cat litter or old coffee grounds to dispose medications if other options are not available. Mix your drugs with these household products, seal them in an airtight container and throw it into the garbage. Call [facility]: [phone] to be sure your drugs can be disposed of in this way. Some medicines may require a different approach.4.Never flush your medications down the toilet. IF YOU HAVE BEEN PRESCRIBED AN OPIOIDS FOR PAIN If you have been prescribed an opioid (such as hydrocodone, oxycodone or morphine), it is critical to understand the possible side effects and risks of opioid pain medications. Even when taken as directed, opioids can have several side effects including: Tolerance, meaning you might need to take more of a medication for the same pain relief. Nausea, vomiting and/or constipation. Sleepiness, dizziness, dry mouth, confusion, depression or itching. Physical dependence, meaning you have withdrawal symptoms when a medication is stopped ? this can develop within a few days. KNOW YOUR RESPONSIBILITIES It is important to know exactly how much and how often to take the opioid pain medications you are prescribed. Never take opioids in higher amounts or more often than prescribed. Do not combine opioids with alcohol or other drugs that cause drowsiness, such as benzodiazepines, also known as benzos, including diazepam and alprazolam, muscle relaxants or sleep aids. Never sell or share prescription opioids. This is illegal. Store opioids in a secure place and out of reach of others (including children, family, friends and visitors). The last page(s) of this document has been signed and retained as a CHART COPY Signatures Patient Education Materials Cellulitis Skin Infection Medication Leaflets My discharge plan and instructions have been reviewed and explained to me and I,DARREN REINOSO understand my current condition and have read and understand these discharge instructions. I have received a written copy of the plan/instructions. If I have questions, I am aware that I should contact my doctor. Patient/Evening Sitter Signature: Date/Time: Relationship to Patient: ____ Witness Name/Signature: Date/Time: [facility] Evelia Kelly 12-22-2024 Note [facility] 12-21-2024 Note [facility] 11-21-2024 Telephone encounter Note The patient has been identified by name and date of : Yes, pharmacy Caregiver verified no other encounters exist for this prescription request: Yes Caregiver confirmed with patient/requestor that no other refills are due, in the near future, with this provider at this time: Yes The last office visit in the department: 11/20/2024 Does the patient have a future office visit with this provider/department: Yes 01/19/2025 Requested Prescriptions Pending Prescriptions Disp Refills furosemide (LASIX) 40 mg tablet 30 tablet 5 Sig: Take 1 tablet by mouth once daily. Hope Dickey LPN November 21, 2024 1:[address] [facility] 11-21-2024 Miscellaneous Notes The patient has been identified by name and date of : Yes, pharmacy Caregiver verified no other encounters exist for this prescription request: Yes Caregiver confirmed with patient/requestor that no other refills are due, in the near future, with this provider at this time: Yes The last office visit in the department: 11/20/2024 Does the patient have a future office visit with this provider/department: Yes 01/19/2025 Requested Prescriptions Pending Prescriptions Disp Refills furosemide (LASIX) 40 mg tablet 30 tablet 5 Sig: Take 1 tablet by mouth once daily. Hope Dickey LPN November 21, 2024 1:10 PM documented in this encounter [facility] 11-20-2024 Note [facility] 11-20-2024 History of Present illness Narrative CC: Patient presents with: Rash HPI Darren Reinoso is a 44 year old female who presents today for rash under her arms. Has had a burning itching red rash to her bilateral armpits she noticed 3 days ago when she was in the shower after getting to a hotel. Denies anyone else in the household having this rash, new soaps, new deodorants, new detergents, previous rashes like this, drainage, recent illnesses, fever, chills, shortness of breath, cough, or other concern at this time. REVIEW OF SYSTEMS See HPI PAST MEDICAL HISTORY Diagnosis Date Adjustment disorder with depressed mood Anxiety state, unspecified Dysmenorrhea Hearing loss no aids EAMON on CPAP Other and unspecified ovarian cyst Ovarian cyst RECOVERING ALCOHOL, MARIJUANA & COCAINE PAST SURGICAL HISTORY Procedure Laterality Date COLONOSCOPY FLX DX W/COLLJ SPEC WHEN PFRMD 03/02/2017 Colonoscopy HEMORRHOIDECTOMY INCISE FINGER TENDON SHEATH Right 2002 INCISE FINGER TENDON SHEATH Right 07/23/2021 Right thumb and middle trigger finger releases LAPS ABD PRTM&OMENTUM DX W/WO SPEC BR/WA SPX Laparoscopy, diagnostic LIG/TRNSXJ FLP TUBE ABDL/VAG APPR UNI/BI Tubal ligation OVARIAN CYSTECTOMY 1990 ovarian cysts removed PAST SURGICAL HISTORY OF 1999 ORIF left ankle PAST SURGICAL HISTORY OF right middle finger surgery, staph debridment. PAST SURGICAL HISTORY OF 07/28/2013 left carpal tunnel release RECTAL EXAM UNDER ANESTHESIA 2014 REVISE MEDIAN N/CARPAL TUNNEL SURG 06/08/2014 right capral tunnel release TNOT ELBOW LATERAL/MEDIAL DEBRIDE OPEN Right 04/02/2017 Right elbow extensor tendon debridement TNOT ELBOW LATERAL/MEDIAL DEBRIDE OPEN Left 05/18/2018 Left elbow extensor tendon debridement TONSILLECTOMY PRIMARY/SECONDARY <AGE 12 Tonsillectomy ALLERGIES Amoxicillin, Codeine, Darvocet A500 [Propoxyphene N-Acetaminophen], Propoxyphene, and Sulfa (Sulfonamide Antibiotics) MEDICATIONS dulaglutide (TRULICITY) 1.5 mg/0.5 mL pen injector Inject 1.5 mg subcutaneously one time a week. Inject dose once per week. Discard Pen After albuterol HFA (VENTOLIN HFA) 90 mcg/actuation inhaler Inhale 2 puffs as instructed every 4 hours as needed for wheezing/shortness of breath. mometasone-formoterol (DULERA) 200-5 mcg/actuation inhaler Inhale 2 puffs as instructed two times a day. omeprazole (PRILOSEC) 40 mg capsule TAKE 1 CAPSULE BY MOUTH DAILY 1/2 HOUR BEFORE BREAKFAST montelukast (SINGULAIR) 10 mg tablet Take 1 tablet by mouth daily at bedtime. levothyroxine (SYNTHROID) 50 mcg tablet TAKE 1 TABLET BY MOUTH DAILY TAKE ON EMPTY STOMACH. FOR THYROID mupirocin (BACTROBAN) 2 % ointment Apply 1 application to affected area three times a day. fluticasone-salmeterol HFA (ADVAIR HFA) 115-21 mcg/actuation inhaler Inhale 2 Puffs as instructed two times a day. furosemide (LASIX) 40 mg tablet Take 1 tablet by mouth once daily. flash glucose sensor (Super[employer] TechnologiesSTYLE ANA PAULA 2 SENSOR) kit USE TO CHECK BLOOD SUGAR DAILY famotidine (PEPCID) 20 mg tablet Take 1 tablet by mouth daily at bedtime. potassium chloride (K-TAB) 10 mEq tablet Take 1 tablet by mouth daily with breakfast. Take with lasix cetirizine (ZYRTEC) 10 mg tablet Take 1 tablet by mouth once daily. metoprolol tartrate, short acting, (LOPRESSOR) 25 mg tablet Take 1 tablet by mouth two times a day. ibuprofen (MOTRIN) 600 mg tablet Take 1 tablet by mouth every 8 hours as needed for pain. Nebulizer Accessories kit 1 Each every 4 hours as needed (wheezing or shortness of breath). albuterol (PROVENTIL) 2.5 mg /3 mL (0.083 %) nebulizer solution Use 3 mL via nebulizer every 4 hours as needed for wheezing/shortness of breath. Use over 5-15minutes. Blood Pressure Monitor 1 Each as directed. Dispense with Extra Large Cuff Blood Pressure Kit-Extra Large kit 1 Each once daily. lancets (UNILET SUPER THIN LANCETS) 30 gauge Test blood sugar(s) 4 times daily. blood sugar diagnostic (TRUE METRIX GLUCOSE TEST STRIP) test strip Test blood sugar(s) 4 times daily. diclofenac (VOLTAREN) 1 % topical gel Apply 2 g to affected area twice daily as needed. TRUE METRIX GLUCOSE METER test blood sugar DIRECTED lamoTRIgine (LAMICTAL) 200 mg tablet Take 200 mg by mouth daily at bedtime. glucose 4 gram chewable tablet Take 3-4 tablets for hypoglycemia. Recheck blood sugar in 15 min after dose flash glucose scanning reader (FREESTYLE ANA PAULA 2 READER) 1 Each once daily. lidocaine (ANECREAM5) crea Apply to affected area as needed. ipratropium-albuterol (DUONEB) 0.5 mg-3 mg(2.5 mg base)/3 mL nebu INHALE 3 ML INSTRUCTED EVERY 4 HOURS NEEDED FAMILY HISTORY Problem Relation Age of Onset Heart Mother Hypertension Father Psychiatry Father Bipolar Obesity Father Psychiatry Sister No Known Problems Brother No Known Problems Maternal Grandmother Cancer Maternal Grandfather Diabetes Paternal Grandmother Stroke Paternal Grandmother Great Grandmother No Known Problems Paternal Grandfather Cancer Paternal Aunt other ([place]) Paternal Aunt Great aunt Colon Cancer No Family History Social History Tobacco Use Smoking status: Every Day Current packs/day: 0.50 Average packs/day: 0.5 packs/day for 32.5 years (16.3 ttl pk-yrs) Types: Cigarettes Start date: 05/17/1992 Smokeless tobacco: Never Tobacco comments: 02/2024 - down to 5 or 6 per day Vaping Use Vaping status: Never Used Substance Use Topics Alcohol use: Not Currently Comment: Seldom- uses once every couple months Drug use: Not Currently Comment: marijuana h/o, 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 PHYSICAL EXAM BP 122/82 Pulse 87 Temp 36.1 C (97 F) Resp 16 Wt (!) 143.3 kg (316 lb) LMP 05/19/2024 (Exact Date) SpO2 97% BMI 57.80 kg/m General Appearance: well appearing, in no acute distress, alert Skin: left axilla with red candidiasis and abrasions, right axilla wit red candidiasis and abrasions but abrasion with erythema and increased warmth with some tenderness. No red streaking drainage or edema. No open areas noted. Lungs: Lungs clear to auscultation. No wheezing, rhonchi, rales. Heart: RRR without murmur, gallop, or rubs. No ectopy Health maintenance reviewed with patient: Depression Screening Never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 Lung parenchyma and airways: 3 mm nodule within the left lung on image 34. Minimal linear atelectasis or fibrosis within left lung on image 97. No consolidation. No suspicious pulmonary nodule. The central airways are patent. Pleural space: No pleural effusion. No pleural thickening. Review of Systems Constitutional: Negative for activity change, appetite change, fatigue and unexpected weight change. HENT: Positive for postnasal drip and sneezing. Negative for congestion, mouth sores and sinus pressure. Respiratory: Positive for cough and shortness of breath. Negative for chest tightness and wheezing. Cardiovascular: Positive for chest pain (chest wall). Negative for palpitations and leg swelling. Musculoskeletal: Positive for arthralgias, back pain and myalgias. Allergic/Immunologic: Positive for environmental allergies. Neurological: Negative for dizziness and weakness. BP 122/72 Pulse 82 Resp 17 Wt (!) 144.7 kg (319 lb) LMP 05/19/2024 (Exact Date) SpO2 96% BMI 58.35 kg/m Physical Exam Vitals reviewed. Constitutional: General: She is not in acute distress. Appearance: Normal appearance. She is obese. She is not ill-appearing. HENT: Head: Normocephalic. Mouth/Throat: Mouth: Mucous membranes are moist. Pharynx: No oropharyngeal exudate or posterior oropharyngeal erythema. Cardiovascular: Rate and Rhythm: Normal rate and regular rhythm. Heart sounds: Normal heart sounds. Pulmonary: Effort: Pulmonary effort is normal. No respiratory distress. Breath sounds: No wheezing or rhonchi. Musculoskeletal: Right lower leg: No edema. Left lower leg: No edema. Skin: General: Skin is warm and dry. Capillary Refill: Capillary refill takes less than 2 seconds. Neurological: General: No focal deficit present. Mental Status: She is alert. ASSESSMENT/PLAN: 1. Asthma, moderate persistent, poorly-controlled (HCC) - ICD9: 493.90, ICD10: J45.40 (primary diagnosis) - Asthma symptoms include wheezing, shortness of breath. - Continue Dulera BID. Instructed not to overuse. - discussed allergies likely contributing to asthma exacerbations. Resumed Singulair 4 days ago. Will monitor symptoms on therapy. - Use albuterol inhaler as needed for acute symptoms, prescription provided. 2. Multiple allergies - ICD9: V15.09, ICD10: Z88.9 - continue Singulair and Zyrtec. - previously recommended immunotherapy but declined. May want to discuss with parking ramp attendant again if symptoms not managed with oral therapy. 3. Productive cough (R05.8) - Intermittent productive cough with clear sputum. Recent sputum with culture showing moderate normal respiratory wing. - likely related to allergies and Asthma. - s/p Azithromycin and Prednisone. finish course of Augmentin 4. Cigarette smoker (F17.210) Currently smoking up to half a pack per day; acknowledges difficulty quitting due to stress. - Discussed the impact of smoking on respiratory health and asthma control. - Advised smoking cessation; offered resources for support. 5. Morbid obesity (HCC) (E66.01) Contributing factor to respiratory symptoms and overall health status. - Encourage weight management strategies; discuss with primary care provider. 6. Chronic hypoxemic respiratory failure (HCC) (J96.11) - Has home oxygen but does not use it regularly. 7. Lung nodule - ICD9: 793.11, ICD10: R91.1 - small lung nodules on 02/2024 CT, recommended 1 year follow-up due in February 2025. Recently had CT at OSH. Will obtain images for review and further follow-up recommendations. F/u 3 months Portions of this documentation were copied and pasted from previous office visit notes in order to provide a cohesive continuity of the history. The note has been reviewed and edited and updated as necessary. Charis Swan APRN.ICT SUPPORT ENGINEER I spent a total of 46 minutes on the date of the service which included preparing to see the patient, [id number] patient care, completing clinical documentation, performing a medically appropriate examination, counseling and educating the patient/family/caregiver, and ordering medications, tests, or procedures. documented in this encounter [facility] 10-17-2024 Note [facility] 10-15-2024 Hospital Discharge instructions Patient Education 10/15/2024 01:34:36 CHEST WALL STRAIN(CUSTOM) Chest Strain You have a chest strain. This happens when the muscles between the ribs stretch and tear. This may occur when you have a severe cough. It may also happen after strenuous lifting or twisting injuries of the upper back. A chest strain usually causes pain when you move or take a deep breath. The strain may take a few days to a few weeks to heal. Home care Follow these guidelines when caring for yourself at home: Rest. Don t do any heavy lifting or strenuous activity. Don t do any activity that causes pain. If you have a severe cough, use a cough syrup with dextromethorphan, unless another cough medicine was prescribed. If you have high blood pressure, check with your health care provider or pharmacist before using an kgnl-arc-qwkbtab cough medicine. You may use acetaminophen or ibuprofen to control pain, unless another medicine was prescribed. If you have chronic liver or kidney disease, talk with your provider before using these medicines. Also talk with your provider if you ve had a stomach ulcer or GI bleeding. Follow-up care Follow up with your health care provider, or as advised. When to seek medical advice Call your health care provider right away if any of these occur: A change in the type of pain. This means if it feels different, gets worse, lasts longer, or begins to spread into your shoulder, arm, neck, jaw, or back. Pain doesn t go away in 1 week Shortness of breath, difficulty breathing, or fast breathing Pain gets worse when you breathe Cough with dark-colored sputum (phlegm) or blood Weakness, dizziness, or fainting Fever of 101 F (38.3 C) or higher, or as directed by your health care provider [phone] [employer]. [address] [place] [address]. All rights reserved. This information is not intended as a substitute for professional medical care. Always follow your healthcare professional's instructions. Follow Up Care 10/14/2024 23:31:39 With:BABAR PHILLIP MD Address: [address] [place] [id number]- When:2-4 days [facility] 10-15-2024 Note Discharge Instructions Thank you for allowing [facility] to assist you with your healthcare needs. The following is important discharge information regarding your hospital visit. What to Do Next Instructions from Your Care Team No qualifying data available. Post Acute Orders No qualifying data available. You Need to Schedule the Following Appointments Follow Up with BABAR PHILLIP MD When:Within 2-4 days Where:[address] [facility] [place] [id number]- Allergies amoxicillin codeine penicillin sulfa drugs Medications Please ask your primary doctor or pharmacist before taking any other medication not listed, including over the counter drugs, herbal medications, vitamins and or supplements as they may interact with your home medications. What How Much When Why Instructions Last Dose New naproxen (naproxen 500 mg oral tablet) 1 tab(s) by mouth Two (2) times a day as needed for as needed for pain Printed Prescription New orphenadrine (Norflex use orphenadrine ) 100 Milligram by mouth Two (2) times a day Duration: 7 Days Printed Prescription Unchanged atorvastatin by mouth Once a day Unchanged famotidine (famotidine 20 mg oral tablet) 1 tab(s) by mouth Two (2) times a day Duration: 5 Days Unchanged furosemide (Lasix 20 mg oral tablet) 2 tab(s) by mouth Once a day Acute exacerbation of COPD Edema of both lower legs Unchanged loratadine (loratadine 10 mg oral tablet) 1 tab(s) by mouth Once a day before a meal Unchanged methylPREDNISolone (Medrol Dosepak 4 mg oral tablet) 1 Packet(s) by mouth Once a day Acute exacerbation of COPD Edema of both lower legs Duration: 6 Days as directed on package labeling Unchanged nortriptyline (nortriptyline 10 mg oral capsule) 1 cap by mouth Three (3) times a day Unchanged predniSONE (predniSONE 10 mg oral tablet) 1 tab(s) by mouth Two (2) times a day Duration: 3 Days with food Unchanged ranitidine (ranitidine 150 mg oral tablet (NF)) 1 tab(s) by mouth Once a day (in the morning) Unchanged tiZANidine (tiZANidine 2 mg oral tablet) 2 tab(s) by mouth Every 8 hours Unchanged zolpidem (Ambien) by mouth Daily at bedtime Please take this list to your next doctor s visit. Bring all medications you take, including over the counter medications, herbals and other supplements with you to your doctor s visit. Patients and families are reminded to discard old lists and to update any records with all medication providers or retail pharmacies. Education Materials Chest Strain You have a chest strain. This happens when the muscles between the ribs stretch and tear. This may occur when you have a severe cough. It may also happen after strenuous lifting or twisting injuries of the upper back. A chest strain usually causes pain when you move or take a deep breath. The strain may take a few days to a few weeks to heal. Home care Follow these guidelines when caring for yourself at home: Rest. Don t do any heavy lifting or strenuous activity. Don t do any activity that causes pain. If you have a severe cough, use a cough syrup with dextromethorphan, unless another cough medicine was prescribed. If you have high blood pressure, check with your health care provider or pharmacist before using an uyeg-wbx-qcyljpu cough medicine. You may use acetaminophen or ibuprofen to control pain, unless another medicine was prescribed. If you have chronic liver or kidney disease, talk with your provider before using these medicines. Also talk with your provider if you ve had a stomach ulcer or GI bleeding. Follow-up care Follow up with your health care provider, or as advised. When to seek medical advice Call your health care provider right away if any of these occur: A change in the type of pain. This means if it feels different, gets worse, lasts longer, or begins to spread into your shoulder, arm, neck, jaw, or back. Pain doesn t go away in 1 week Shortness of breath, difficulty breathing, or fast breathing Pain gets worse when you breathe Cough with dark-colored sputum (phlegm) or blood Weakness, dizziness, or fainting Fever of 101 F (38.3 C) or higher, or as directed by your health care provider [phone] [employer]. [address] [place] [address], [place] [address]. All rights reserved. This information is not intended as a substitute for professional medical care. Always follow your healthcare professional's instructions. Additional Information VACCINATE! IT SAVES LIVES! Members of the community who have not yet received the COVID-19 vaccine and would like to receive it can visit one of [facility] vaccine clinics. There are many vaccine clinic locations within the [facility]. For locations and available times, please visit [email or web address] [email or web address] It is important to note that some COVID mobile vaccine clinics are held outdoors and may be canceled in rainy or stormy conditions. To learn more about pediatric vaccinations (ages 5-11), we invite you to visit the [employer] webpage. https://[email or web address]/pa [email or web address]-Nspnb-Hfgtcobkszn-Freque wemo-Cxsdf-Teqmwfaza.html To learn more about the COVID-19 vaccine, we invite you to visit the CDC website for a list of frequently asked questions. https://www.cdc.gov/coronavirus/2 019-ncov/vaccines/faq.html [facility] Patient Portal Access Instructions: Stay connected with your healthcare team and access your personal medical information anytime with the [employer] [employer] Patient Portal. If you would like a full copy of your medical records please contact the [facility] Medical Records Department Wednesday through Wednesday between 8a.m. and 4:30p.m. Please follow the directions below to access the portal: 1.Access the email account you provided upon registration to the [facility].2.Look for an invitation email from [facility].3.Open the email and access the invitation link: Accept Invitation to [facility]4.Fill in the required brewster to create your account. Sign into www.[employer] with your username and password that you created in the above steps to stay up to date. You can then view a summary of results, a summary of your visits, and the ability to download your summaries to your computer or send the information securely to a physician. Remember that your healthcare information is confidential, so carefully consider who you will allow to register on the [employer] Patient Portal for access to your information. You can also access the [employer] Patient Portal on the [employer] dominguez. Simply click on Health Records under Health Data and then click on the [employer] logo. HOW TO SAFELY DISPOSE OF PRESCRIPTION MEDICATIONS Please use one of the following methods to safely dispose of your unused medications. 1.Use a drug disposal kit: the drug disposal pouch allows you to safely discard your old and unused drugs. Ask your nurse to give you one when you are discharged.2.Visit a local take-back location: Many local pharmacies and police departments have programs that collect old and unwanted prescription drugs. Call your local pharmacy or go to http://Up My Game.Disconnect/0I2Ib5l to find one close to you.3.Make use of household items: Use cat litter or old coffee grounds to dispose medications if other options are not available. Mix your drugs with these household products, seal them in an airtight container and throw it into the garbage. Call [facility]: [phone] to be sure your drugs can be disposed of in this way. Some medicines may require a different approach.4.Never flush your medications down the toilet. IF YOU HAVE BEEN PRESCRIBED AN OPIOIDS FOR PAIN If you have been prescribed an opioid (such as hydrocodone, oxycodone or morphine), it is critical to understand the possible side effects and risks of opioid pain medications. Even when taken as directed, opioids can have several side effects including: Tolerance, meaning you might need to take more of a medication for the same pain relief. Nausea, vomiting and/or constipation. Sleepiness, dizziness, dry mouth, confusion, depression or itching. Physical dependence, meaning you have withdrawal symptoms when a medication is stopped ? this can develop within a few days. KNOW YOUR RESPONSIBILITIES It is important to know exactly how much and how often to take the opioid pain medications you are prescribed. Never take opioids in higher amounts or more often than prescribed. Do not combine opioids with alcohol or other drugs that cause drowsiness, such as benzodiazepines, also known as benzos, including diazepam and alprazolam, muscle relaxants or sleep aids. Never sell or share prescription opioids. This is illegal. Store opioids in a secure place and out of reach of others (including children, family, friends and visitors). The last page(s) of this document has been signed and retained as a CHART COPY Signatures Patient Education Materials CHEST WALL STRAIN(CUSTOM) Medication Leaflets My discharge plan and instructions have been reviewed and explained to me and I,DARREN REINOSO understand my current condition and have read and understand these discharge instructions. I have received a written copy of the plan/instructions. If I have questions, I am aware that I should contact my doctor. Patient/Evening Sitter Signature: Date/Time: Relationship to Patient: ____ Witness Name/Signature: Date/Time: [facility] 10-15-2024 Note Exam Date Time Procedure Performing Provider Status 10/15/24 1:[address] Angiography Chest w/ Contrast ERVIN SMILEY MD; Auth (Verified) [id number] ORIGINAL EXAMINATION: CTA OF THE CHEST 10/15/2024 1:05 am TECHNIQUE: CTA of the chest was performed after the administration of intravenous contrast. Multiplanar reformatted images are provided for review. MIP images are provided for review. Automated exposure control, iterative reconstruction, and/or weight based adjustment of the mA/kV was utilized to reduce the radiation dose to as low as reasonably achievable. COMPARISON: CT angiogram of the chest on 01/04/2024 HISTORY: ORDERING SYSTEM PROVIDED HISTORY: Reason for Exam: chest pain; suspect PE FINDINGS: Pulmonary Arteries: Pulmonary arteries are adequately opacified for evaluation. No evidence of intraluminal filling defect to suggest pulmonary embolism. Main pulmonary artery is normal in caliber. Mediastinum: No evidence of mediastinal lymphadenopathy. The heart and pericardium demonstrate no acute abnormality. There is no acute abnormality of the thoracic aorta. Lungs/pleura: There is linear subsegmental atelectasis or scar posteriorly in the right upper lobe, and also in the lingular segment of left upper lobe. The lungs are otherwise well expanded. No pleural fluid or pneumothorax is present. Upper Abdomen: Limited images of the upper abdomen are unremarkable. Soft Tissues/Bones: No acute bone or soft tissue abnormality. IMPRESSION: No evidence of pulmonary embolism or other acute cardiopulmonary process. Interpreted by: Ervin Gonzalez MD Preliminary Report By: Ervin Gonzalez MD Electronically signed By Ervin Gonzalez MD Dictated Date: 10/15/2024 1:07:46 AM Prelim Date: 10/15/2024 1:14:40 AM Sign Date: 10/15/2024 1:14:40 AM Ordering Provider: DAVID NGUYEN [facility]05-31-2025 Note* Exam Date Time Procedure Performing Provider Status 10/14/24 11:51 PM EKG [ED AOH] - CV DAVID NGUYEN MD ; Auth (Verified) ECG Final Report Sinus rhythm Electronic Signature: DAVID NGUYEN MD 10/15/2024 00:17:35 [facility]05-30-2025 Telephone encounter Note* Telephone Encounter - Katie Moon MA - 10/13/2024 3:45 PM EDT Patient notified. [facility]05-30-2025 Miscellaneous Notes* Telephone Encounter - Katie Moon MA - 10/13/2024 3:45 PM EDT Patient notified. * Telephone Encounter - Caryn Lowery APRN.CNP - 10/13/2024 3:38 PM EDT Preliminary results show gram positive bacteria. I am going to go ahead and treat her for possible respiratory infection with augmentin and zpack. As this can cause a yeast infection I am sending in diflucan as well Thank you Caryn Lowery APRN.JACINTA * Telephone Encounter - Katie Moon MA - 10/12/2024 11:36 AM EDT Tried calling patient, phone lines was static and unable to hear patient. Will call back once linesare working. * Telephone Encounter - Caryn Lowery APRN.CNP - 10/12/2024 10:05 AM EDT I am unsure what options I have that this is STAT with an elevated D-dimer and she is symptomatic. She needs a CT of the chest today to rule out a pulmonary embolism. How is she feeling today? Can a peer to peer be scheduled during my APC time today? I am backed up and behind but if someone can schedule this I am more then happy to do so during my apc time between noon and 1 if possible. If not, her insurance needs to know she will need to go to the ER then. Nothing in her blood work outside of d-dimer needs to be addressed acutely and can be discussed at follow up appointment. Thank you Caryn Lowery APRN.CNP * Telephone Encounter - Kelli Rizo - 10/12/2024 9:11 AM EDT Spoke with patient and scheduled 10 business days out as patient has Medicaid replacement and requires 10 business days for authorization. Please advise. * Telephone Encounter - Caryn Lowery APRN.CNP - 10/11/2024 7:36 PM EDT D-dimer elevated. Ct of the chest ordered Thank you Caryn Lowery APRN.CNP [facility] Telephone encounter Note * Telephone Encounter - Caryn Lowery APRN.CNP - 10/13/2024 3:38 PM EDT Preliminary results show gram positive bacteria. I am going to go ahead and treat her for possible respiratory infection with augmentin and zpack. As this can cause a yeast infection I am sending in diflucan as well Thank you Caryn Lowery APRN.CNP [facility]05-29-2025 Telephone encounter Note* Telephone Encounter - Katie Moon MA - 10/12/2024 11:36 AM EDT Tried calling patient, phone lines was static and unable to hear patient. Will call back once linesare working. [facility]05-29-2025 Telephone encounter Note* Telephone Encounter - Caryn Lowery APRN.CNP - 10/12/2024 10:05 AM EDT I am unsure what options I have that this is STAT with an elevated D-dimer and she is symptomatic. She needs a CT of the chest today to rule out a pulmonary embolism. How is she feeling today? Can a peer to peer be scheduled during my APC time today? I am backed up and behind but if someone can schedule this I am more then happy to do so during my apc time between noon and 1 if possible. If not, her insurance needs to know she will need to go to the ER then. Nothing in her blood work outside of d-dimer needs to be addressed acutely and can be discussed at follow up appointment. Thank you Caryn Lowery APRN.JACINTA [facility]05-29-2025 Telephone encounter Note* Telephone Encounter - Kelli Rizo - 10/12/2024 9:11 AM EDT Spoke with patient and scheduled 10 business days out as patient has Medicaid replacement and requires 10 business days for authorization. Please advise. [facility] History of Present illness Narrative* Caryn Lowery APRN.JACINTA - 10/12/2024 7:41 AM EDT CC: Patient presents with: Recheck: Follow up headaches, B/L shoulder pain, back pain HPI Darren Reinoso is a 44 year old female who presents today for multiple concerns and complaints. Recording using [employer] software for draft documentation of the visit was discussed with the patient/authorized appeals representative; all questions welcomed and answered. Patient/authorized appeals representative agreed to proceed Chest Pressure and Dyspnea: - Onset: Over a week ago. - Location: Middle of the chest, radiating to both shoulders and the back, particularly down the right side. - Aggravated by breathing. - Associated with reported significant dyspnea. - Using DULERA inhaler daily as ordered. - No longer taking montelukast; needs prescription renewal. - Denies cough, palpitations, or edema. Feels feverish at times. Fatigue: - Severe fatigue, requiring excessive sleep. - Reports feeling miserable and wanting to go back to bed. Lightheadedness: - Reports blurry vision and feeling not there. Congestion: - Wakes up with significant congestion, sneezing, and watery, itchy eyes. - Denies sore throat. - Morning cough causing gagging, but denies emesis. - Denies abdominal pain or changes in bowel habits. Aspergillus Infection: - Last seen by Dr. Peña in June for Aspergillus. - Completed treatment in June. - Recent allergy testing showed positive reactions to multiple allergens, including Aspergillus. Tobacco Use: - Smoking over half a pack per day. - Denies vaping. Family Stress: - Reports significant stress related to family issues, including conflicts with children and concerns about their behavior. REVIEW OF SYSTEMS See HPI PAST MEDICAL HISTORY Diagnosis Date Adjustment disorder with depressed mood Anxiety state, unspecified Dysmenorrhea Hearing loss no aids EAMON on CPAP Other and unspecified ovarian cyst Ovarian cyst RECOVERING ALCOHOL, MARIJUANA & COCAINE PAST SURGICAL HISTORY Procedure Laterality Date COLONOSCOPY FLX DX W/COLLJ SPEC WHEN PFRMD 03/02/2017 Colonoscopy HEMORRHOIDECTOMY INCISE FINGER TENDON SHEATH Right 2002 INCISE FINGER TENDON SHEATH Right 07/23/2021 Right thumb and middle trigger finger releases LAPS ABD PRTM&OMENTUM DX W/WO SPEC BR/WA SPX Laparoscopy, diagnostic LIG/TRNSXJ FLP TUBE ABDL/VAG APPR UNI/BI Tubal ligation OVARIAN CYSTECTOMY 1990 ovarian cysts removed PAST SURGICAL HISTORY OF 1999 ORIF left ankle PAST SURGICAL HISTORY OF right middle finger surgery, staph debridment. PAST SURGICAL HISTORY OF 07/28/2013 left carpal tunnel release RECTAL EXAM UNDER ANESTHESIA 2014 REVISE MEDIAN N/CARPAL TUNNEL SURG 06/08/2014 right capral tunnel release TNOT ELBOW LATERAL/MEDIAL DEBRIDE OPEN Right 04/02/2017 Right elbow extensor tendon debridement TNOT ELBOW LATERAL/MEDIAL DEBRIDE OPEN Left 05/18/2018 Left elbow extensor tendon debridement TONSILLECTOMY PRIMARY/SECONDARY <AGE 12 Tonsillectomy ALLERGIES Amoxicillin, Codeine, Darvocet A500 [Propoxyphene N-Acetaminophen], Propoxyphene, and Sulfa (Sulfonamide Antibiotics) MEDICATIONS omeprazole (PRILOSEC) 40 mg capsule TAKE 1 CAPSULE BY MOUTH DAILY 1/2 HOUR BEFORE BREAKFAST montelukast (SINGULAIR) 10 mg tablet Take 1 tablet by mouth daily at bedtime. predniSONE (DELTASONE) 20 mg tablet Take 1 tablet by mouth once daily. iv contrast (will be provided with radiology test) CT Chest PE -Inject, intravenously, once for 1 dose.No IV access, insert saline lock prior to the beginning of sedation, infusion, injection of imaging exam. Discontinue saline lock post exam. If Pt. has a central line or IVAD, may access for administration according to line specific nursing protocol. Once exam is complete flush line and de-access according to line specific nursing protocol in the CT contrast administration guidelines link. levothyroxine (SYNTHROID) 50 mcg tablet TAKE 1 TABLET BY MOUTH DAILY TAKE ON EMPTY STOMACH. FOR THYROID dulaglutide (TRULICITY) 1.5 mg/0.5 mL pen injector Inject 1.5 mg subcutaneously one time a week. Inject dose once per week. Discard Pen After mupirocin (BACTROBAN) 2 % ointment Apply 1 application to affected area three times a day. mometasone-formoterol (DULERA) 200-5 mcg/actuation inhaler Inhale 2 Puffs as instructed two times aday. fluticasone-salmeterol HFA (ADVAIR HFA) 115-21 mcg/actuation inhaler Inhale 2 Puffs as instructed two times a day. furosemide (LASIX) 40 mg tablet Take 1 tablet by mouth once daily. flash glucose sensor (FREESTYLE ANA PAULA 2 SENSOR) kit USE TO CHECK BLOOD SUGAR DAILY famotidine (PEPCID) 20 mg tablet Take 1 tablet by mouth daily at bedtime. potassium chloride (K-TAB) 10 mEq tablet Take 1 tablet by mouth daily with breakfast. Take with lasix cetirizine (ZYRTEC) 10 mg tablet Take 1 tablet by mouth once daily. metoprolol tartrate, short acting, (LOPRESSOR) 25 mg tablet Take 1 tablet by mouth two times a day. ibuprofen (MOTRIN) 600 mg tablet Take 1 tablet by mouth every 8 hours as needed for pain. Nebulizer Accessories kit 1 Each every 4 hours as needed (wheezing or shortness of breath). albuterol (PROVENTIL) 2.5 mg /3 mL (0.083 %) nebulizer solution Use 3 mL via nebulizer every 4 hours as needed for wheezing/shortness of breath. Use over 5-15minutes. Blood Pressure Monitor 1 Each as directed. Dispense with Extra Large Cuff Blood Pressure Kit-Extra Large kit 1 Each once daily. lancets (UNILET SUPER THIN LANCETS) 30 gauge Test blood sugar(s) 4 times daily. blood sugar diagnostic (TRUE METRIX GLUCOSE TEST STRIP) test strip Test blood sugar(s) 4 times daily. diclofenac (VOLTAREN) 1 % topical gel Apply 2 g to affected area twice daily as needed. TRUE METRIX GLUCOSE METER test blood sugar DIRECTED lamoTRIgine (LAMICTAL) 200 mg tablet Take 200 mg by mouth daily at bedtime. glucose 4 gram chewable tablet Take 3-4 tablets for hypoglycemia. Recheck blood sugar in 15 min after dose flash glucose scanning reader (FREESTYLE ANA PAULA 2 READER) 1 Each once daily. lidocaine (ANECREAM5) crea Apply to affected area as needed. albuterol HFA (VENTOLIN HFA) 90 mcg/actuation inhaler Inhale 2 Puffs as instructed every 4 hours asneeded for wheezing/shortness of breath. ipratropium-albuterol (DUONEB) 0.5 mg-3 mg(2.5 mg base)/3 mL nebu INHALE 3 ML INSTRUCTED EVERY 4HOURS NEEDED FAMILY HISTORY Problem Relation Age of Onset Heart Mother Hypertension Father Psychiatry Father Bipolar Obesity Father Psychiatry Sister No Known Problems Brother No Known Problems Maternal Grandmother Cancer Maternal Grandfather Diabetes Paternal Grandmother Stroke Paternal Grandmother Great Grandmother No Known Problems Paternal Grandfather Cancer Paternal Aunt other ([place]) Paternal Aunt Great aunt Colon Cancer No Family History Social History Tobacco Use Smoking status: Every Day Current packs/day: 0.50 Average packs/day: 0.5 packs/day for 32.4 years (16.2 ttl pk-yrs) Types: Cigarettes Start date: 05/17/1992 Smokeless tobacco: Never Tobacco comments: 02/2024 - down to 5 or 6 per day Vaping Use Vaping status: Never Used Substance Use Topics Alcohol use: Not Currently Comment: Seldom- uses once every couple months Drug use: Not Currently Comment: marijuana h/o, 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 PHYSICAL EXAM BP 128/78 Pulse 78 Resp 16 Wt (!) 144.7 kg (319 lb) LMP 05/19/2024 (Exact Date) SpO2 92% BMI 58.35 kg/m General Appearance: ill and tired appearing, in no acute distress, alert Eyes: conjunctiva pink and moist, no icterus, sclera white, non-injected Nose/sinus: Nares normal. Septum midline. Mucosa normal. No drainage., No sinus tenderness Neck: Thyroid normal size and symmetric without palpable nodules, Neck supple, No adenopathy Lymph nodes: No cervical lymphadenopathy and No supraclavicular lymphadenopathy Lungs: lungs diminished with expiratory wheezing Heart: RRR without murmur, gallop, or rubs. No ectopy Abdomen: Abdomen soft, non-tender. Bowel sounds normal. No masses, organomegaly Health maintenance reviewed with patient: Depression Screening Never done Cervical Cancer Screening due on 08/23/2013 Mammogram Screening Never done Covid-19 Vaccine( season) due on 02/01/2025 Colorectal Cancer Screening due on 04/16/2025 DTaP,Tdap,Td Vaccine(2 - Td or Tdap) due on 07/27/2025 Hepatitis B Vaccine(1 of 3 - 19+ 3-dose series) due on 07/27/2025 HbA1C due on 01/31/2025 LDL Cholesterol due on 10/11/2025 Annual PCP Team Chronic Disease Visit due on 10/11/2025 BP Controlled (<130/80) due on 10/11/2025 Influenza Vaccine Completed HIV Screening Completed Pneumococcal Vaccine Completed Urine Albumin:Creatinine Ratio Discontinued Dilated Retinal Exam Discontinued Diabetic Foot Exam Discontinued Hepatitis C Screening Discontinued DATA REVIEWED: No new labs Assessment/Plan 1. Chest pain, unspecified type (R07.9) 2. Acute pain of both shoulders (M25.511) - Chest pain localized to the middle of the chest, radiating to the back and shoulders, present forone week. - Ordered EKG to rule out cardiac etiology. - NSR with nonspecific St abnormality - Ordered chest X-ray to evaluate for pulmonary causes. - Ordered D-dimer to rule out pulmonary embolism as she has chest pain with chest pain along with abnormal unexplainable pain to both shoulders Go to ER for any worsening or new symptoms. Follow up next week 3. Gastroesophageal reflux disease without esophagitis (K21.9) - Reports morning gagging and clear sputum production, possibly related to GERD or from respiratorycause - will evaluate for respiratory infection and treat if indicated. - Continue current management. 4. Dyspnea, unspecified type (R06.00) 5. Wheezing (R06.2) - Dyspnea and wheezing noted on examination. - Prescribed prednisone 20 mg daily for 4 days to reduce inflammation and improve breathing. - Refill ordered for DULERA inhaler. - Restarted montelukast. - Follow-up next week to reassess symptoms. 6. Subacute cough (R05.2) - Cough productive of clear sputum. - Ordered sputum culture to evaluate for infection or recurrence of aspergillosis. 7. History of pulmonary aspergillosis (Z86.19) - Previous treatment completed in June. - Ordered sputum culture to rule out recurrence. 8. Tobacco dependence due to cigarettes (F17.210) - Continues to smoke over half a pack per day. - Advised on smoking cessation to improve respiratory symptoms. Prescription instructions reviewed with patient as applicable. Potential red flag symptoms discussed with the patient. Reviewed appropriate action plan to take if red flag symptoms occur. Patient agreeable to treatment plan. Caryn Lowery APRN.CNP [place] [id number] Telephone encounter Note * Telephone Encounter - Caryn Lowery APRN.CNP - 10/11/2024 7:36 PM EDT D-dimer elevated. Ct of the chest ordered Thank you Caryn Lowery APRN.ICT [employer]PPORT ENGINEER [facility]05-28-2025 History of Present illness Narrative* Ana Gunderson RT(R) - 10/11/2024 12:20 PM EDT Radiology Service Progress Note PATIENT NAME: Darren Reinoso DATE OF SERVICE: October 11, 2024 TIME: 12:13 PM PATIENT IDENTITY VERIFICATION COMPLETED USING TWO (2) IDENTIFIERS: Name and Date of confirmedby patient verbally. FALL SCREENING: Has the patient had 2 falls in the last year or 1 fall with injury or currently using an Ambulatory Assistive Device (Walker, Cane, Wheelchair, Crutches, etc.)? No PATIENT GENDER DATA: Assigned female at . status: : No status:NO. PATIENT RELEVANT IMPLANT DATA REVIEWED: Not Applicable PATIENT PRESENTS WITH AN IMPLANTABLE OR ATTACHED ROVING FRAME TENDER: No RADIOLOGY DEPARTMENT: General X-ray: Exam(s) Completed: Chest X-Ray PERIPHERAL IV DATA: Not applicable SIGNED BY: RT Luis(R) October 11, 2024 12:13 PM documented in this encounterSt. [facility] History of Present illness Narrative* Caryn Lowery APRN.CNP - 07/27/2024 1:07 PM EDT CC: Patient presents with: Recheck: Medication follow up HPI Darren Reinoso is a 44 year old female who presents today for routine follow up. Previously restartedher trulicity which had been stopped due to GI symptoms. Has been on for almost 6 months now. Has not been able to check blood sugar lately. Has not been able to due to caring for aging parents and not getting much sleep lately due to father with dementia. Denies any abdominal pain, nausea, vomiting, anorexia, constipation, bowel changes, or any side effect from the trulicity. DIABETES MELLITUS: Ms. Reinoso denies excessive thirst or increased frequency of urination, chest pain or dyspnea , numbness, tingling or pain in extremities, new or unusual visual symptoms, low sugar/hypoglycemic reactions, weight loss/gain, lightheadedness/dizziness, and bowel changes/loose stools.Follows a diabetic diet most of the time. She is compliant with medication(s) and is tolerating med(s) without any side effects. Patient's last HgA1C was Hemoglobin A1C (%) Date Value 10/04/2023 6.0 05/31/2023 6.8 04/24/2021 6.7 10/15/2020 6.1 Hemoglobin A1C (POCT) (%) Date Value 04/28/2024 6.0 11/23/2022 6.2 ) Last Ophthalmology exam was within the past 12 months Hypothyroidism: still finding time to take this on an empty stomach. Is purposefully losing weight but exhausted but possibly due to her situation with her parent. REVIEW OF SYSTEMS See HPI PAST MEDICAL HISTORY Diagnosis Date Adjustment disorder with depressed mood Anxiety state, unspecified Dysmenorrhea Hearing loss no aids EAMON on CPAP Other and unspecified ovarian cyst Ovarian cyst RECOVERING ALCOHOL, MARIJUANA & COCAINE PAST SURGICAL HISTORY Procedure Laterality Date COLONOSCOPY FLX DX W/COLLJ SPEC WHEN PFRMD 03/02/2017 Colonoscopy HEMORRHOIDECTOMY INCISE FINGER TENDON SHEATH Right 2002 INCISE FINGER TENDON SHEATH Right 07/23/2021 Right thumb and middle trigger finger releases LAPS ABD PRTM&OMENTUM DX W/WO SPEC BR/WA SPX Laparoscopy, diagnostic LIG/TRNSXJ FLP TUBE ABDL/VAG APPR UNI/BI Tubal ligation OVARIAN CYSTECTOMY 1990 ovarian cysts removed PAST SURGICAL HISTORY OF 1999 ORIF left ankle PAST SURGICAL HISTORY OF right middle finger surgery, staph debridment. PAST SURGICAL HISTORY OF 07/28/2013 left carpal tunnel release RECTAL EXAM UNDER ANESTHESIA 2014 REVISE MEDIAN N/CARPAL TUNNEL SURG 06/08/2014 right capral tunnel release TNOT ELBOW LATERAL/MEDIAL DEBRIDE OPEN Right 04/02/2017 Right elbow extensor tendon debridement TNOT ELBOW LATERAL/MEDIAL DEBRIDE OPEN Left 05/18/2018 Left elbow extensor tendon debridement TONSILLECTOMY PRIMARY/SECONDARY <AGE 12 Tonsillectomy ALLERGIES Amoxicillin, Codeine, Darvocet A500 [Propoxyphene N-Acetaminophen], Propoxyphene, and Sulfa (Sulfonamide Antibiotics) MEDICATIONS dulaglutide (TRULICITY) 1.5 mg/0.5 mL pen injector Inject 1.5 mg subcutaneously one time a week. Inject dose once per week. Discard Pen After mupirocin (BACTROBAN) 2 % ointment Apply 1 application to affected area three times a day. mometasone-formoterol (DULERA) 200-5 mcg/actuation inhaler Inhale 2 Puffs as instructed two times aday. fluticasone-salmeterol HFA (ADVAIR HFA) 115-21 mcg/actuation inhaler Inhale 2 Puffs as instructed two times a day. furosemide (LASIX) 40 mg tablet Take 1 tablet by mouth once daily. omeprazole (PRILOSEC) 40 mg capsule TAKE 1 CAPSULE BY MOUTH DAILY 1/2 HOUR BEFORE BREAKFAST flash glucose sensor (FREESTYLE ANA PAULA 2 SENSOR) kit USE TO CHECK BLOOD SUGAR DAILY levothyroxine (SYNTHROID) 50 mcg tablet TAKE 1 TABLET BY MOUTH DAILY TAKE ON EMPTY STOMACH. FOR THYROID voriconazole (VFEND) 200 mg tablet Take 200 mg by mouth two times a day. famotidine (PEPCID) 20 mg tablet Take 1 tablet by mouth daily at bedtime. potassium chloride (K-TAB) 10 mEq tablet Take 1 tablet by mouth daily with breakfast. Take with lasix cetirizine (ZYRTEC) 10 mg tablet Take 1 tablet by mouth once daily. metoprolol tartrate, short acting, (LOPRESSOR) 25 mg tablet Take 1 tablet by mouth two times a day. ibuprofen (MOTRIN) 600 mg tablet Take 1 tablet by mouth every 8 hours as needed for pain. Nebulizer Accessories kit 1 Each every 4 hours as needed (wheezing or shortness of breath). albuterol (PROVENTIL) 2.5 mg /3 mL (0.083 %) nebulizer solution Use 3 mL via nebulizer every 4 hours as needed for wheezing/shortness of breath. Use over 5-15minutes. Blood Pressure Monitor 1 Each as directed. Dispense with Extra Large Cuff Blood Pressure Kit-Extra Large kit 1 Each once daily. lancets (UNILET SUPER THIN LANCETS) 30 gauge Test blood sugar(s) 4 times daily. blood sugar diagnostic (TRUE METRIX GLUCOSE TEST STRIP) test strip Test blood sugar(s) 4 times daily. diclofenac (VOLTAREN) 1 % topical gel Apply 2 g to affected area twice daily as needed. TRUE METRIX GLUCOSE METER test blood sugar DIRECTED montelukast (SINGULAIR) 10 mg tablet Take 10 mg by mouth daily at bedtime. lamoTRIgine (LAMICTAL) 200 mg tablet Take 200 mg by mouth daily at bedtime. glucose 4 gram chewable tablet Take 3-4 tablets for hypoglycemia. Recheck blood sugar in 15 min after dose flash glucose scanning reader ([employer] ANA PAULA 2 READER) 1 Each once daily. lidocaine (ANECREAM5) crea Apply to affected area as needed. albuterol HFA (VENTOLIN HFA) 90 mcg/actuation inhaler Inhale 2 Puffs as instructed every 4 hours asneeded for wheezing/shortness of breath. ipratropium-albuterol (DUONEB) 0.5 mg-3 mg(2.5 mg base)/3 mL nebu INHALE 3 ML INSTRUCTED EVERY 4HOURS NEEDED FAMILY HISTORY Problem Relation Age of Onset Heart Mother Hypertension Father Psychiatry Father Bipolar Obesity Father Psychiatry Sister No Known Problems Brother No Known Problems Maternal Grandmother Cancer Maternal Grandfather Diabetes Paternal Grandmother Stroke Paternal Grandmother Great Grandmother No Known Problems Paternal Grandfather Cancer Paternal Aunt other ([place]) Paternal Aunt Great aunt Colon Cancer No Family History Social History Tobacco Use Smoking status: Every Day Current packs/day: 0.50 Average packs/day: 0.5 packs/day for 32.2 years (16.1 ttl pk-yrs) Types: Cigarettes Start date: 05/17/1992 Smokeless tobacco: Never Tobacco comments: 02/2024 - down to 5 or 6 per day Vaping Use Vaping status: Never Used Substance Use Topics Alcohol use: Not Currently Comment: Seldom- uses once every couple months Drug use: Not Currently Comment: marijuana h/o, 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 PHYSICAL EXAM BP 122/78 Pulse 90 Resp 16 Wt (!) 142 kg (313 lb) LMP 05/19/2024 (Exact Date) SpO2 97% BMI 57.25 kg/m General Appearance: well appearing, in no acute distress, alert Pysch: mood and affect broad and appropriate Eyes: conjunctiva pink and moist, no icterus, sclera white, non-injected Lungs: Lungs clear to auscultation. No wheezing, rhonchi, rales. Heart: RRR without murmur, gallop, or rubs. No ectopy Abdomen: Abdomen soft, non-tender. Bowel sounds normal. No masses, organomegaly Health maintenance reviewed with patient: Depression Screening Never done BP Controlled (<130/80) Never done Hepatitis B Vaccine(1 of 3 - 19+ 3-dose series) Never done Cervical Cancer Screening due on 08/23/2013 Mammogram Screening Never done DTaP,Tdap,Td Vaccine(2 - Td or Tdap) due on 10/03/2022 Covid-19 Vaccine( - ) due on 02/01/2025 Colorectal Cancer Screening due on 04/16/2025 LDL Cholesterol due on 10/03/2024 HbA1C due on 10/27/2024 Annual PCP Team Chronic Disease Visit due on 06/30/2025 Spirometry Completed Influenza Vaccine Completed HIV Screening Completed Pneumococcal Vaccine Completed Urine Albumin:Creatinine Ratio Discontinued Dilated Retinal Exam Discontinued Diabetic Foot Exam Discontinued Hepatitis C Screening Discontinued DATA REVIEWED: No new labs ASSESSMENT/PLAN: 1. Controlled type 2 diabetes mellitus without complication, without long-term current use of insulin (HCC) - ICD9: 250.00, ICD10: E11.9 (primary diagnosis) - Control undetermined, due for labs - Continue current medications - will continue current dose of trulicity as she reports she is currently tolerating this and assessment is normal. - Blood glucose monitoring on a once daily schedule - Counseled on healthy diet and regular exercise - Discussed need for and benefit of weight loss. BMI 57.25 kg/(m^2) - HEMOGLOBIN A1C 2. Hypothyroidism, unspecified type - ICD9: 244.9, ICD10: E03.9 - Instructed patient on importance of taking on an empty stomach either first thing in the morning or at bedtime. - THYROID STIMULATING HORMONE Prescription instructions reviewed with patient as applicable. Potential red flag symptoms discussed with the patient. Reviewed appropriate action plan to take if red flag symptoms occur. Patient agreeable to treatment plan. Caryn Lowery APRN.CNP documented in this encounterSt. [facility]02-[facility]25 History of Present illness Narrative* Meggan Barrow RT(R) - 07/13/2024 4:30 PM EST Radiology Service Progress Note PATIENT NAME: Darren Reinoso DATE OF SERVICE: July 13, 2024 TIME: 4:28 PM PATIENT IDENTITY VERIFICATION COMPLETED USING TWO (2) IDENTIFIERS: Name and Date of confirmedby patient verbally. FALL SCREENING: Has the patient had 2 falls in the last year or 1 fall with injury or currently using an Ambulatory Assistive Device (Walker, Cane, Wheelchair, Crutches, etc.)? No PATIENT GENDER DATA: Assigned female at . status: : No status:NO. PATIENT RELEVANT IMPLANT DATA REVIEWED: Yes PATIENT PRESENTS WITH AN IMPLANTABLE OR ATTACHED ROVING FRAME TENDER: No RADIOLOGY DEPARTMENT: General X-ray: Exam(s) Completed: Chest X-Ray PERIPHERAL IV DATA: Not applicable SIGNED BY: RT Fermin(R) July 13, 2024 4:28 PM documented in this encounterSt. [facility]02-27-2025 [facility]25 [facility] History of Present illness Narrative* Janie Vinson APRN.CNP - 07/13/2024 4:12 PM EST CC: Patient presents with: Cough: Chest congestion, body feels heavy, fatigue, pressure in sinus area, tickle in throat x 2 days HPI: Darren Reinoso is a 44 year old female who presents to the office with complaint of chest congestion,head congestion, and cough, nonproductive for 2 days. Symptoms are staying the same. Associated symptoms includes dyspnea and fatigue. Denies nausea, vomiting , and diarrhea. Treatments tried include nothing so far. with no relief of symptoms. Sick contacts: unknown. History of asthma, frequent episodes of bronchitis, chronic bronchitis, bronchiectasis or COPD: No Smoker: No Seasonal/environmental allergies: No The ROS is otherwise negative. The patient's pmh, medications, allergies, and past visits are reviewed. PHYSICAL EXAM: BP 146/87 Pulse 88 Temp 36.9 C (98.5 F) Resp 22 Wt (!) 144 kg (317 lb 7.4 oz) LMP 05/19/2024 (Exact Date) SpO2 97% BMI 58.06 kg/m General appearance: alert, cooperative, pleasant, in no acute distress Head: Normocephalic Eyes: EOM's intact, conjunctiva pink and moist, no icterus, sclera white, non-injected Ears: Right ear: External ear/canal- Normal, TM - clear with good landmarks. Left ear: External ear/canal- Normal, TM - clear with good landmarks Oropharynx:moist without lesions, No erythema, exudates or tonsillar hypertrophy. Heart: Negative. RRR without obvious murmur, gallop, or rubs. No ectopy. Lungs: wheezing diffusely PAST MEDICAL HISTORY Diagnosis Date Adjustment disorder with depressed mood Anxiety state, unspecified Dysmenorrhea Hearing loss no aids EAMON on CPAP Other and unspecified ovarian cyst Ovarian cyst RECOVERING ALCOHOL, MARIJUANA & COCAINE PAST SURGICAL HISTORY Procedure Laterality Date COLONOSCOPY FLX DX W/COLLJ SPEC WHEN PFRMD 03/02/2017 Colonoscopy HEMORRHOIDECTOMY INCISE FINGER TENDON SHEATH Right 2002 INCISE FINGER TENDON SHEATH Right 07/23/2021 Right thumb and middle trigger finger releases LAPS ABD PRTM&OMENTUM DX W/WO SPEC BR/WA SPX Laparoscopy, diagnostic LIG/TRNSXJ FLP TUBE ABDL/VAG APPR UNI/BI Tubal ligation OVARIAN CYSTECTOMY 1990 ovarian cysts removed PAST SURGICAL HISTORY OF 1999 ORIF left ankle PAST SURGICAL HISTORY OF right middle finger surgery, staph debridment. PAST SURGICAL HISTORY OF 07/28/2013 left carpal tunnel release RECTAL EXAM UNDER ANESTHESIA 2014 REVISE MEDIAN N/CARPAL TUNNEL SURG 06/08/2014 right capral tunnel release TNOT ELBOW LATERAL/MEDIAL DEBRIDE OPEN Right 04/02/2017 Right elbow extensor tendon debridement TNOT ELBOW LATERAL/MEDIAL DEBRIDE OPEN Left 05/18/2018 Left elbow extensor tendon debridement TONSILLECTOMY PRIMARY/SECONDARY <AGE 12 Tonsillectomy ALLERGIES Amoxicillin, Codeine, Darvocet A500 [Propoxyphene N-Acetaminophen], Propoxyphene, and Sulfa (Sulfonamide Antibiotics) MEDICATIONS dulaglutide (TRULICITY) 1.5 mg/0.5 mL pen injector Inject 1.5 mg subcutaneously one time a week. Inject dose once per week. Discard Pen After mupirocin (BACTROBAN) 2 % ointment Apply 1 application to affected area three times a day. mometasone-formoterol (DULERA) 200-5 mcg/actuation inhaler Inhale 2 Puffs as instructed two times aday. fluticasone-salmeterol HFA (ADVAIR HFA) 115-21 mcg/actuation inhaler Inhale 2 Puffs as instructed two times a day. furosemide (LASIX) 40 mg tablet Take 1 tablet by mouth once daily. omeprazole (PRILOSEC) 40 mg capsule TAKE 1 CAPSULE BY MOUTH DAILY 1/2 HOUR BEFORE BREAKFAST flash glucose sensor ([employer] Technologies[employer]YLE ANA PAULA 2 SENSOR) kit USE TO CHECK BLOOD SUGAR DAILY levothyroxine (SYNTHROID) 50 mcg tablet TAKE 1 TABLET BY MOUTH DAILY TAKE ON EMPTY STOMACH. FOR THYROID famotidine (PEPCID) 20 mg tablet Take 1 tablet by mouth daily at bedtime. potassium chloride (K-TAB) 10 mEq tablet Take 1 tablet by mouth daily with breakfast. Take with lasix cetirizine (ZYRTEC) 10 mg tablet Take 1 tablet by mouth once daily. metoprolol tartrate, short acting, (LOPRESSOR) 25 mg tablet Take 1 tablet by mouth two times a day. ibuprofen (MOTRIN) 600 mg tablet Take 1 tablet by mouth every 8 hours as needed for pain. Nebulizer Accessories kit 1 Each every 4 hours as needed (wheezing or shortness of breath). albuterol (PROVENTIL) 2.5 mg /3 mL (0.083 %) nebulizer solution Use 3 mL via nebulizer every 4 hours as needed for wheezing/shortness of breath. Use over 5-15minutes. Blood Pressure Monitor 1 Each as directed. Dispense with Extra Large Cuff Blood Pressure Kit-Extra Large kit 1 Each once daily. lancets (UNILET SUPER THIN LANCETS) 30 gauge Test blood sugar(s) 4 times daily. blood sugar diagnostic (TRUE METRIX GLUCOSE TEST STRIP) test strip Test blood sugar(s) 4 times daily. diclofenac (VOLTAREN) 1 % topical gel Apply 2 g to affected area twice daily as needed. TRUE METRIX GLUCOSE METER test blood sugar DIRECTED montelukast (SINGULAIR) 10 mg tablet Take 10 mg by mouth daily at bedtime. lamoTRIgine (LAMICTAL) 200 mg tablet Take 200 mg by mouth daily at bedtime. glucose 4 gram chewable tablet Take 3-4 tablets for hypoglycemia. Recheck blood sugar in 15 min after dose flash glucose scanning reader ([employer] ANA PAULA 2 READER) 1 Each once daily. lidocaine (ANECREAM5) crea Apply to affected area as needed. albuterol HFA (VENTOLIN HFA) 90 mcg/actuation inhaler Inhale 2 Puffs as instructed every 4 hours asneeded for wheezing/shortness of breath. ipratropium-albuterol (DUONEB) 0.5 mg-3 mg(2.5 mg base)/3 mL nebu INHALE 3 ML INSTRUCTED EVERY 4HOURS NEEDED voriconazole (VFEND) 200 mg tablet Take 200 mg by mouth two times a day. FAMILY HISTORY Problem Relation Age of Onset Heart Mother Hypertension Father Psychiatry Father Bipolar Obesity Father Psychiatry Sister No Known Problems Brother No Known Problems Maternal Grandmother Cancer Maternal Grandfather Diabetes Paternal Grandmother Stroke Paternal Grandmother Great Grandmother No Known Problems Paternal Grandfather Cancer Paternal Aunt other ([place]) Paternal Aunt Great aunt Colon Cancer No Family History Social History Tobacco Use Smoking status: Every Day Current packs/day: 0.50 Average packs/day: 0.5 packs/day for 32.2 years (16.1 ttl pk-yrs) Types: Cigarettes Start date: 05/17/1992 Smokeless tobacco: Never Tobacco comments: 02/2024 - down to 5 or 6 per day Vaping Use Vaping status: Never Used Substance Use Topics Alcohol use: Not Currently Comment: Seldom- uses once every couple months Drug use: Not Currently Comment: marijuana h/o, 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 ASSESSMENT/PLAN: 1. URI, acute - ICD9: 465.9, ICD10: J06.9 (primary diagnosis) - INFLUENZA A&B MOLECULAR (POC) 2. Acute cough - ICD9: 786.2, ICD10: R05.1 - XR CHEST 2V FRONTAL/LAT * * * * Physician Interpretation * * * * EXAMINATION: CHEST RADIOGRAPH (2 VIEW FRONTAL & LATERAL) CLINICAL HISTORY: Acute cough MQ: [id number] EXAM DATE/TIME: 07/13/2024 4:36 PM COMPARISON: Chest x-ray on 02/04/2024 RESULT: Lines, tubes, and devices: None. Lungs and pleura: No consolidation. No lung mass. No pleural effusion. No pneumothorax. Cardiomediastinal silhouette: Stable cardiomediastinal silhouette. Bones and soft tissues: There are degenerative changes in the spine. IMPRESSION IMPRESSION: No acute radiographic abnormality. Quality Improvement Consultant: SARWAT Transcribe Date/Time: Jul 13 2024 4:42P Dictated by : DELIO CALDWELL MD ASSESSMENT/PLAN: 1. URI, acute - ICD9: 465.9, ICD10: J06.9 (primary diagnosis) - INFLUENZA A&B MOLECULAR (POC) - MUCINEX DM 30 MG-600 MG TABLET,EXTENDED RELEASE 12 HR 2. Acute cough - ICD9: 786.2, ICD10: R05.1 - XR CHEST 2V FRONTAL/LAT - PREDNISONE 10 MG TABLET Prescription instructions reviewed with patient as applicable. Potential red flag symptoms discussed with the patient. Reviewed appropriate action plan to take if red flag symptoms occur. Patient agreeable to treatment plan. Janie Vinson APRN.JACINTA documented in this encounterSt. Anthony'[facility]02-14-[facility] History of Present illness Narrative* Caryn Lowery APRN.CNP - 06/30/2024 1:15 PM EST CC: Patient presents with: Recheck: DM follow up HPI Darren Reinoso is a 44 year old female who presents today for diabetic follow up wanting to discuss her trulicity. DIABETES MELLITUS: Ms. Reinoso denies excessive thirst or increased frequency of urination, chest pain or dyspnea , numbness, tingling or pain in extremities, new or unusual visual symptoms, low sugar/hypoglycemic reactions, weight loss/gain, lightheadedness/dizziness, and bowel changes/loose stools.Follows a diabetic diet most of the time. She is compliant with medication(s) and is tolerating med(s) without any side effects. She reports checking her glucose on a once a day schedule with sugars in the fasting 140s range. Patient's last HgA1C was Hemoglobin A1C (%) Date Value 10/04/2023 6.0 05/31/2023 6.8 04/24/2021 6.7 10/15/2020 6.1 Hemoglobin A1C (POCT) (%) Date Value 04/28/2024 6.0 11/23/2022 6.2 ) Restarted the trulicity on her own as it was discontinued due to abdominal pain but was feeling better and had some in her fridge. Has already increased it to 1.5mg for the past 6 weeks. Denies any abdominal pain nausea or vomiting as long as she maintains a healthy low fat, low grease diet in small portions. Would like to continue this even though she has been told in the past it was concerned as the cause of her previous GI upset. REVIEW OF SYSTEMS See HPI PAST MEDICAL HISTORY Diagnosis Date Adjustment disorder with depressed mood Anxiety state, unspecified Dysmenorrhea Hearing loss no aids EAMON on CPAP Other and unspecified ovarian cyst Ovarian cyst RECOVERING ALCOHOL, MARIJUANA & COCAINE PAST SURGICAL HISTORY Procedure Laterality Date COLONOSCOPY FLX DX W/COLLJ SPEC WHEN PFRMD 03/02/2017 Colonoscopy HEMORRHOIDECTOMY INCISE FINGER TENDON SHEATH Right 2002 INCISE FINGER TENDON SHEATH Right 07/23/2021 Right thumb and middle trigger finger releases LAPS ABD PRTM&OMENTUM DX W/WO SPEC BR/WA SPX Laparoscopy, diagnostic LIG/TRNSXJ FLP TUBE ABDL/VAG APPR UNI/BI Tubal ligation OVARIAN CYSTECTOMY 1990 ovarian cysts removed PAST SURGICAL HISTORY OF 1999 ORIF left ankle PAST SURGICAL HISTORY OF right middle finger surgery, staph debridment. PAST SURGICAL HISTORY OF 07/28/2013 left carpal tunnel release RECTAL EXAM UNDER ANESTHESIA 2014 REVISE MEDIAN N/CARPAL TUNNEL SURG 06/08/2014 right capral tunnel release TNOT ELBOW LATERAL/MEDIAL DEBRIDE OPEN Right 04/02/2017 Right elbow extensor tendon debridement TNOT ELBOW LATERAL/MEDIAL DEBRIDE OPEN Left 05/18/2018 Left elbow extensor tendon debridement TONSILLECTOMY PRIMARY/SECONDARY <AGE 12 Tonsillectomy ALLERGIES Amoxicillin, Codeine, Darvocet A500 [Propoxyphene N-Acetaminophen], Propoxyphene, and Sulfa (Sulfonamide Antibiotics) MEDICATIONS mometasone-formoterol (DULERA) 200-5 mcg/actuation inhaler Inhale 2 Puffs as instructed two times aday. fluticasone-salmeterol HFA (ADVAIR HFA) 115-21 mcg/actuation inhaler Inhale 2 Puffs as instructed two times a day. furosemide (LASIX) 40 mg tablet Take 1 tablet by mouth once daily. omeprazole (PRILOSEC) 40 mg capsule TAKE 1 CAPSULE BY MOUTH DAILY 1/2 HOUR BEFORE BREAKFAST dulaglutide (TRULICITY) 0.75 mg/0.5 mL pen injector Inject 0.75 mg subcutaneously one time a week. Inject dose once per week. Discard Pen After flash glucose sensor ([employer] ANA PAULA 2 SENSOR) kit USE TO CHECK BLOOD SUGAR DAILY levothyroxine (SYNTHROID) 50 mcg tablet TAKE 1 TABLET BY MOUTH DAILY TAKE ON EMPTY STOMACH. FOR THYROID voriconazole (VFEND) 200 mg tablet Take 200 mg by mouth two times a day. famotidine (PEPCID) 20 mg tablet Take 1 tablet by mouth daily at bedtime. potassium chloride (K-TAB) 10 mEq tablet Take 1 tablet by mouth daily with breakfast. Take with lasix cetirizine (ZYRTEC) 10 mg tablet Take 1 tablet by mouth once daily. metoprolol tartrate, short acting, (LOPRESSOR) 25 mg tablet Take 1 tablet by mouth two times a day. ibuprofen (MOTRIN) 600 mg tablet Take 1 tablet by mouth every 8 hours as needed for pain. Nebulizer Accessories kit 1 Each every 4 hours as needed (wheezing or shortness of breath). albuterol (PROVENTIL) 2.5 mg /3 mL (0.083 %) nebulizer solution Use 3 mL via nebulizer every 4 hours as needed for wheezing/shortness of breath. Use over 5-15minutes. Blood Pressure Monitor 1 Each as directed. Dispense with Extra Large Cuff Blood Pressure Kit-Extra Large kit 1 Each once daily. lancets (UNILET SUPER THIN LANCETS) 30 gauge Test blood sugar(s) 4 times daily. blood sugar diagnostic (TRUE METRIX GLUCOSE TEST STRIP) test strip Test blood sugar(s) 4 times daily. diclofenac (VOLTAREN) 1 % topical gel Apply 2 g to affected area twice daily as needed. TRUE METRIX GLUCOSE METER test blood sugar DIRECTED montelukast (SINGULAIR) 10 mg tablet Take 10 mg by mouth daily at bedtime. lamoTRIgine (LAMICTAL) 200 mg tablet Take 200 mg by mouth daily at bedtime. glucose 4 gram chewable tablet Take 3-4 tablets for hypoglycemia. Recheck blood sugar in 15 min after dose flash glucose scanning reader ([employer] ANA PAULA 2 READER) 1 Each once daily. lidocaine (ANECREAM5) crea Apply to affected area as needed. albuterol HFA (VENTOLIN HFA) 90 mcg/actuation inhaler Inhale 2 Puffs as instructed every 4 hours asneeded for wheezing/shortness of breath. ipratropium-albuterol (DUONEB) 0.5 mg-3 mg(2.5 mg base)/3 mL nebu INHALE 3 ML INSTRUCTED EVERY 4HOURS NEEDED FAMILY HISTORY Problem Relation Age of Onset Heart Mother Hypertension Father Psychiatry Father Bipolar Obesity Father Psychiatry Sister No Known Problems Brother No Known Problems Maternal Grandmother Cancer Maternal Grandfather Diabetes Paternal Grandmother Stroke Paternal Grandmother Great Grandmother No Known Problems Paternal Grandfather Cancer Paternal Aunt other ([place]) Paternal Aunt Great aunt Colon Cancer No Family History Social History Tobacco Use Smoking status: Every Day Current packs/day: 0.50 Average packs/day: 0.5 packs/day for 32.1 years (16.1 ttl pk-yrs) Types: Cigarettes Start date: 05/17/1992 Smokeless tobacco: Never Tobacco comments: 02/2024 - down to 5 or 6 per day Vaping Use Vaping status: Never Used Substance Use Topics Alcohol use: Not Currently Comment: Seldom- uses once every couple months Drug use: Not Currently Comment: marijuana h/o, 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 PHYSICAL EXAM BP 128/72 Pulse 82 Resp 16 Wt (!) 142.9 kg (315 lb) LMP 05/19/2024 (Exact Date) SpO2 99% BMI 57.61 kg/m General Appearance: well appearing, in no acute distress, alert Eyes: conjunctiva pink and moist, no icterus, sclera white, non-injected Lungs: Lungs clear to auscultation. No wheezing, rhonchi, rales. Heart: RRR without murmur, gallop, or rubs. No ectopy Abdomen: Abdomen soft, non-tender. Bowel sounds normal. Difficult exam due to abdominal girth. Health maintenance reviewed with patient: Depression Screening Never done BP Controlled (<130/80) Never done Hepatitis B Vaccine(1 of 3 - 19+ 3-dose series) Never done Cervical Cancer Screening due on 08/23/2013 Mammogram Screening Never done DTaP,Tdap,Td Vaccine(2 - Td or Tdap) due on 10/03/2022 Covid-19 Vaccine( season) due on 02/01/2025 Colorectal Cancer Screening due on 04/16/2025 LDL Cholesterol due on 10/03/2024 HbA1C due on 10/27/2024 Annual PCP Team Chronic Disease Visit due on 04/28/2025 Spirometry Completed Influenza Vaccine Completed HIV Screening Completed Pneumococcal Vaccine Completed Urine Albumin:Creatinine Ratio Discontinued Dilated Retinal Exam Discontinued Diabetic Foot Exam Discontinued Hepatitis C Screening Discontinued DATA REVIEWED: No new labs ASSESSMENT/PLAN: 1. Controlled type 2 diabetes mellitus without complication, without long-term current use of insulin (HCC) - ICD9: 250.00, ICD10: E11.9 (primary diagnosis) - Controlled - Continue current medications appears to be tolerating Trulicity but very concerning with past GI symptoms. Will not increase at this time. Patient in understanding that this medication can cause issues like pancreatitis, small bowel obstruction, and other life threatening issues but still wantingto continue at this time. Feels as long as she avoids greasy foods and maintains healthy portions she is fine. - keep upcoming appointment to continue to monitor this. - Blood glucose monitoring on a once daily schedule - Counseled on healthy diet and regular exercise - Discussed need for and benefit of weight loss. BMI 57.61 kg/(m^2) - DULAGLUTIDE 1.5 MG/0.5 ML SUBCUTANEOUS PEN INJECTOR 2. Morbid obesity with BMI of 50.0-59.9, adult (HCC) - ICD9: 278.01, V85.43, ICD10: E66.01, Z68.43 As above - DULAGLUTIDE 1.5 MG/0.5 ML SUBCUTANEOUS PEN INJECTOR Prescription instructions reviewed with patient as applicable. Potential red flag symptoms discussed with the patient. Reviewed appropriate action plan to take if red flag symptoms occur. Patient agreeable to treatment plan. Caryn Lowery APRN.ICT SUPPORT ENGINEER documented in this encounterSt. Anthony'[facility]02-03-2025 Telephone encounter Note * Telephone Encounter - Shazia Acuña LPN - 06/19/2024 12:00 PM EST Images from the original note were not included. Elle Boone MD You1 minute ago (11:57 AM) Sent in [facility]02-03-2025 Miscellaneous Notes* Telephone Encounter - Shazia Acuña LPN - 06/19/2024 12:00 PM EST Images from the original note were not included. Elle Boone MD You1 minute ago (11:57 AM) Sent in Dulera * Addendum Note - Elle Boone MD - 06/19/2024 11:57 AM ESTAddended by: ELLE BOONE on: 06/19/2024 11:57 AM Modules accepted: Orders * Telephone Encounter - Shazia Acuña LPN - 06/19/2024 8:46 AM EST [facility] called and states the Advair has cardiovascular toxicity interactions with the Voriconazole that has been ordered by another physician. They are wondering if Symbicort or Dulera shouldbe sent as they don't have these interactions with the Voriconazole. Shazia Acuña LPN documented in this encounterSt. Anthony'[facility]02-03-2025 Note* Addendum Note - Elle Boone MD - 06/19/2024 11:57 AM ESTAddended by: ELLE BOONE on: 06/19/2024 11:57 AM Modules accepted: Orders [facility]02-03-2025 Telephone encounter Note* Telephone Encounter - Shazia Acuña LPN - 06/19/2024 8:46 AM EST [facility] called and states the Advair has cardiovascular toxicity interactions with the Voriconazole that has been ordered by another physician. They are wondering if Symbicort or Dulera shouldbe sent as they don't have these interactions with the Voriconazole. Shazia Acuña LPN [facility]01-31-[facility]25 History of Present illness Narrative* Elle Boone MD - 06/16/2024 1:30 PM EST Images from the original note were not included. . [facility] [place] Note Patient name: Darren Reinoso PCP: Babar Phillip MD Referring Physician: Caryn Lowery CNP Consultation requested by Caryn Lowery for an opinion regarding asthma, aspergillus. My final recommendations will be communicated back to the requesting physician by way of shared Medical record or letter to requesting physician via US mail. CC: SOB HPI: Darren Reinoso 44 year old female current smoker with PMH significant for serious obesity, anxiety, EAMON on CPAP, asthma, recurrent bronchitis and possible aspergillus infection. Previously followed by local pulmonary and is being seen by IDDr. Mendoza. Her recent history is notable for SOB and chest pain. PCP ordered D-dimer which was slightly elevated so sent to ED for CTA. Apparently thiswas negative for PE but suggestive of infection with scattered nodular densities in upper lobes measuring up to 5 mm (images not available for my review). Sputum was positive for aspergillus so she was started on Voriconazole by her local composite bond technician and referred to ID. By time she saw ID, had been on Vfend so Aspergillus Ab, Fungitell and galactomanan all negative. Plan for 4-6 months of therapy. It is unclear to me if she truly had fungal PNA, as this would be highly unusual for a patient without any risk factors and aspergillus is a known oral contaminant. She has had persistent cough, wheezing and SOB. No sputum production. No history brown sputum. She is not compliant with use of her inhaled medication. Follow up CT of chest in February showed several 3 mm nodules, one in her left upper lobe and 2 in her right upper lobe as well as faint mosaicism. Her original pulmonary history dates back to 2018 when she had respiratory failure due to severe bronchiolitis from human metapneumovirus. She has been on supplemental oxygen since that time and inhaler therapy. She has been on Trelegy Ellipta in past but intolerant of powdered form inhalers. She is supposed to be on Symbicort but does not like the taste and finds it difficult to use twice daily.Her previous pulmonary provider had tried changing her to Breo Ellipta to improve compliance due toonce daily dosing. She is currently not using Symbicort, just albuterol and her nebs. DME: [facility] DATA: PFT 2018: Spirometry shows no obstruction. No improvement post bronchodilators. Lung volumes pertinent for restriction likely related to body habitus. Moderate reduction in diffusing capacity that corrects foralveolar volume. PFT: SERVICE DATE: 06/16/2024 SERVICE TIME: 1:12 PM Oral Exhaled Nitric Oxide measurement: 5.0 (ppb) Labs: Component Ref Range & Units 1 mo ago Aspergillus fumigatus IgE <0.35 kU/l <0.35 Aspergillus fumigatus Class Class 0 Class 0 Component Ref Range & Units 1 mo ago IgE <114.0 kU/l 48.4 Component Ref Range & Units 1 mo ago A fumigatus, IgG by MARA <=99.99 mcg/mL 9.80 Sputum culture 02/25/24: Mixed normal wing 02/18/2024: Many normal respiratory wing Abnormal Rare Aspergillus fumigatus Abnormal By MALDI TOF Mass Spectrometry. No Pseudomonas aeruginosa isolated. No Staphylococcus aureus isolated. Imaging / Diagnostic Studies: DATE OF EXAM: Feb 29 2024 2:25PM [facility] 0539 - CT CHEST W IVCON / PROCEDURE REASON: multiple diagnoses Comparison: Type of study and date/time RESULT: Limitations: None. Lines, tubes, and devices: None. Lung parenchyma and airways: 3 mm nodule within the left lung on image 34. Minimal linear atelectasis or fibrosis within left lung on image 97. No consolidation. No suspicious pulmonary nodule. The central airways are patent. Pleural space: No pleural effusion. No pleural thickening. Lower neck, lymph nodes, and mediastinum: The imaged thyroid gland is normal. No lymphadenopathy inthe supraclavicular, axillary, mediastinal, or hilar regions. Heart, pericardium, and thoracic vessels: The thoracic aorta and main pulmonary artery are normal in caliber. The cardiac chambers are normal in size. No coronary artery atherosclerotic calcifications are noted, although the study is not optimized for coronary assessment. No pericardial effusion orthickening. Bones and soft tissues: No destructive bone lesion. Chest wall is unremarkable. Degenerative changes throughout the spine Upper abdomen: No abnormality in the imaged upper abdomen. Localizer images: No additional findings. PAST MEDICAL HISTORY Diagnosis Date Adjustment disorder with depressed mood Anxiety state, unspecified Dysmenorrhea Hearing loss no aids EAMON on CPAP Other and unspecified ovarian cyst Ovarian cyst RECOVERING ALCOHOL, MARIJUANA & COCAINE ALLERGIES Allergen Reactions Amoxicillin Other: See Comments Yeast infection Codeine Darvocet A500 [Prop* Propoxyphene Rash, Unknown Sulfa (Sulfonamide * furosemide (LASIX) 40 mg tablet Take 1 tablet by mouth once daily. omeprazole (PRILOSEC) 40 mg capsule TAKE 1 CAPSULE BY MOUTH DAILY 1/2 HOUR BEFORE BREAKFAST dulaglutide (TRULICITY) 0.75 mg/0.5 mL pen injector Inject 0.75 mg subcutaneously one time a week. Inject dose once per week. Discard Pen After flash glucose sensor ([employer] ANA PAULA 2 SENSOR) kit USE TO CHECK BLOOD SUGAR DAILY levothyroxine (SYNTHROID) 50 mcg tablet TAKE 1 TABLET BY MOUTH DAILY TAKE ON EMPTY STOMACH. FOR THYROID voriconazole (VFEND) 200 mg tablet Take 200 mg by mouth two times a day. famotidine (PEPCID) 20 mg tablet Take 1 tablet by mouth daily at bedtime. potassium chloride (K-TAB) 10 mEq tablet Take 1 tablet by mouth daily with breakfast. Take with lasix cetirizine (ZYRTEC) 10 mg tablet Take 1 tablet by mouth once daily. metoprolol tartrate, short acting, (LOPRESSOR) 25 mg tablet Take 1 tablet by mouth two times a day. ibuprofen (MOTRIN) 600 mg tablet Take 1 tablet by mouth every 8 hours as needed for pain. Nebulizer Accessories kit 1 Each every 4 hours as needed (wheezing or shortness of breath). albuterol (PROVENTIL) 2.5 mg /3 mL (0.083 %) nebulizer solution Use 3 mL via nebulizer every 4 hours as needed for wheezing/shortness of breath. Use over 5-15minutes. Blood Pressure Monitor 1 Each as directed. Dispense with Extra Large Cuff Blood Pressure Kit-Extra Large kit 1 Each once daily. lancets (UNILET SUPER THIN LANCETS) 30 gauge Test blood sugar(s) 4 times daily. blood sugar diagnostic (TRUE METRIX GLUCOSE TEST STRIP) test strip Test blood sugar(s) 4 times daily. diclofenac (VOLTAREN) 1 % topical gel Apply 2 g to affected area twice daily as needed. TRUE METRIX GLUCOSE METER test blood sugar DIRECTED montelukast (SINGULAIR) 10 mg tablet Take 10 mg by mouth daily at bedtime. lamoTRIgine (LAMICTAL) 200 mg tablet Take 200 mg by mouth daily at bedtime. glucose 4 gram chewable tablet Take 3-4 tablets for hypoglycemia. Recheck blood sugar in 15 min after dose flash glucose scanning reader ([employer] ANA PAULA 2 READER) 1 Each once daily. lidocaine (ANECREAM5) crea Apply to affected area as needed. albuterol HFA (VENTOLIN HFA) 90 mcg/actuation inhaler Inhale 2 Puffs as instructed every 4 hours asneeded for wheezing/shortness of breath. ipratropium-albuterol (DUONEB) 0.5 mg-3 mg(2.5 mg base)/3 mL nebu INHALE 3 ML INSTRUCTED EVERY 4HOURS NEEDED fluticasone-salmeterol HFA (ADVAIR HFA) 115-21 mcg/actuation inhaler Inhale 2 Puffs as instructed two times a day. 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 FAMILY HISTORY Problem Relation Age of Onset Heart Mother Hypertension Father Psychiatry Father Bipolar Obesity Father Psychiatry Sister No Known Problems Brother No Known Problems Maternal Grandmother Cancer Maternal Grandfather Diabetes Paternal Grandmother Stroke Paternal Grandmother Great Grandmother No Known Problems Paternal Grandfather Cancer Paternal Aunt other ([place]) Paternal Aunt Great aunt Colon Cancer No Family History PAST SURGICAL HISTORY Procedure Laterality Date COLONOSCOPY FLX DX W/COLLJ SPEC WHEN PFRMD 03/02/2017 Colonoscopy HEMORRHOIDECTOMY INCISE FINGER TENDON SHEATH Right 2002 INCISE FINGER TENDON SHEATH Right 07/23/2021 Right thumb and middle trigger finger releases LAPS ABD PRTM&OMENTUM DX W/WO SPEC BR/WA SPX Laparoscopy, diagnostic LIG/TRNSXJ FLP TUBE ABDL/VAG APPR UNI/BI Tubal ligation OVARIAN CYSTECTOMY 1990 ovarian cysts removed PAST SURGICAL HISTORY OF 1999 ORIF left ankle PAST SURGICAL HISTORY OF right middle finger surgery, staph debridment. PAST SURGICAL HISTORY OF 07/28/2013 left carpal tunnel release RECTAL EXAM UNDER ANESTHESIA 2014 [facility] MEDIAN N/CARPAL TUNNEL SURG 06/08/2014 right capral tunnel release TNOT ELBOW LATERAL/MEDIAL DEBRIDE OPEN Right 04/02/2017 Right elbow extensor tendon debridement TNOT ELBOW LATERAL/MEDIAL DEBRIDE OPEN Left 05/18/2018 Left elbow extensor tendon debridement TONSILLECTOMY PRIMARY/SECONDARY <AGE 12 Tonsillectomy PMH, Social history, family history and surgical history reviewed and updated in EMR REVIEW OF SYSTEMS: CONSTITUTIONAL: No fevers, chills, nightsweats, unintended weight loss HEENT: Denies current nasal congestion/sinus symptoms, allergy problems. EYES: No visual changes CARDIOVASCULAR: No chest pain, palpitations, orthopnea, edema. PULM: See HPI GI: No dysphagia/odynophagia, problematic reflux NEURO: No balance problems, peripheral weakness/paresthesias or numbness of concern. MUSC-SKEL: No joint pain, swelling, or erythema. PSY: Psychiatric issues INTEGUMENTARY: No new skin changes, rashes, hives PHYSICAL EXAMINATION: BP 146/90 Pulse 82 Resp 14 Ht 5' 2 (1.58m) Wt 314 lb (142.4kg) SpO2 98% LMP 05/19/2024 BMI 57.42 kg/(m^2). General Appearance: Obese female, NAD. Skin: Skin color, texture, turgor normal, no suspicious rashes or lesions. Head: Normocephalic, no masses, lesions, tenderness or abnormalities. Oropharynx: Oral lesions or erythema. Neck: No masses or adenopathy. Lungs: Not labored, no wheezes or crackles. Heart: Regular rate and rhythm, no murmurs or gallops. Extremities: No edema, no clubbing. Assessment/Plan: 1. Mild persistent asthma, uncomplicated -Persistent respiratory symptoms due to noncompliance with inhaled therapy -Changed to Advair HFA -Continue albuterol as needed -Smoking cessation strongly encouraged 2. Morbid obesity -BMI 57 -Weight loss advised 3. Chronic hypoxemic respiratory failure -Patient is compliant with use of her as needed oxygen 4. Lung nodules -Unclear to me whether patient truly had Aspergillus infection. See HPI -She is completing treatment plan per ID -She will need follow-up CT in February for her persistent nodules 5. Cigarette smoker -Smoker without evidence of COPD -Smoking cessation strongly encouraged I spent a total of 90 minutes on the date of the service which included preparing to see the patient, [id number] patient care, completing clinical documentation, obtaining and/or reviewing separately obtained history, performing a medically appropriate examination, ordering medications, tests, or procedures, and independently interpreting results (not separately reported). Elle Boone MD [facility] [place] documented in this encounterSt. [facility]-31-[facility] Procedure note* Viktoriya Woodward RPFT - 06/16/2024 1:12 PM ESTAssociated Order(s): NITRIC OXIDE, EXHALED RESPIRATORY THERAPY ORAL EXHALED NITRIC OXIDE SERVICE DATE: 06/16/2024 SERVICE TIME: 1:12 PM Oral Exhaled Nitric Oxide measurement: 5.0 (ppb) Normal: Adult <25 ppb, pediatric (<12 years) <20 ppb High Normal / Increased: Adult 25-50 ppb, pediatric (<12 years) 20-35 ppb Moderately raised exhaled Nitric Oxide may indicate underlying inflammation, but note that: Cold and influenza can raise exhaled Nitric Oxide and some patients have higher baseline exhaled Nitric Oxide levels than others. High: Adult >50 ppb, pediatric (<12 years) >35 ppb Indicative of ongoing eosinophilic inflammation. Symptomatic patient likely to respond to steroids. Possible causes (if already on steroids): Poor compliance, recent allergen exposure, steroid dose inadequate, and steroid resistance. Note that not all patients with high exhaled nitric oxide levels display symptoms. Oral Exhaled Nitric Oxide measurement (Previous Encounters) Test Date Oral Exhaled Nitric Oxide (ppb) 06/16/2024 5.0 NAME: TED Cotter PATIENT NAME: Darren Reinoso DATE: June 16, 2024 TIME: 1:[address] [facility]01-[facility] Procedure note* Viktoriya Woodward RPFT - 06/16/2024 1:12 PM ESTAssociated Order(s): NITRIC OXIDE, EXHALED RESPIRATORY THERAPY ORAL EXHALED NITRIC OXIDE SERVICE DATE: 06/16/2024 SERVICE TIME: 1:12 PM Oral Exhaled Nitric Oxide measurement: 5.0 (ppb) Normal: Adult <25 ppb, pediatric (<12 years) <20 ppb High Normal / Increased: Adult 25-50 ppb, pediatric (<12 years) 20-35 ppb Moderately raised exhaled Nitric Oxide may indicate underlying inflammation, but note that: Cold and influenza can raise exhaled Nitric Oxide and some patients have higher baseline exhaled Nitric Oxide levels than others. High: Adult >50 ppb, pediatric (<12 years) >35 ppb Indicative of ongoing eosinophilic inflammation. Symptomatic patient likely to respond to steroids. Possible causes (if already on steroids): Poor compliance, recent allergen exposure, steroid dose inadequate, and steroid resistance. Note that not all patients with high exhaled nitric oxide levels display symptoms. Oral Exhaled Nitric Oxide measurement (Previous Encounters) Test Date Oral Exhaled Nitric Oxide (ppb) 06/16/2024 5.0 NAME: TED Cotter PATIENT NAME: Darren Reinoso DATE: June 16, 2024 TIME: 1:12 PM documented in this encounterSt. [facility]01-31-2025 [facility]01-[facility] History of Present illness Narrative* Viktoriya Woodward RPFT - 06/16/2024 1:05 PM EST PULM FUNCTION: Provider: Elle Boone MD Assisting Tech: Viktoriya Woodward RPFT Spirometry: 1 Exhaled Nitric Oxide: 1 documented in this encounterSt. Anthony'S Hospital12-31-2024 Telephone encounter Note * Telephone Encounter - Tete Gonzalez RN - 05/16/2024 1:06 PM EST The patient has been identified by name and date of : Yes Caregiver verified no other encounters exist for this prescription request: Yes Caregiver confirmed with patient/requestor that no other refills are due, in the near future, with this provider at this time: Yes The last office visit in the department: 04/28/2024 Does the patient have a future office visit with this provider/department: Yes 07/27/2024 Requested Prescriptions Pending Prescriptions Disp Refills furosemide (LASIX) 40 mg tablet 30 tablet 5 Sig: Take 1 tablet by mouth once daily. Tete Gonzalez RN [facility]12-[facility]24 Miscellaneous Notes* Telephone Encounter - Tete Gonzalez RN - 05/16/2024 1:06 PM EST The patient has been identified by name and date of : Yes Caregiver verified no other encounters exist for this prescription request: Yes Caregiver confirmed with patient/requestor that no other refills are due, in the near future, with this provider at this time: Yes The last office visit in the department: 04/28/2024 Does the patient have a future office visit with this provider/department: Yes 07/27/2024 Requested Prescriptions Pending Prescriptions Disp Refills furosemide (LASIX) 40 mg tablet 30 tablet 5 Sig: Take 1 tablet by mouth once daily. Tete Gonzalez, ROD documented in this encounterSt. Anthony'S Hospital12-13-2024 Note[facility]12-13-2024 History of Present illness Narrative* Caryn Lowery APRN.ICT SUPPORT ENGINEER - 04/28/2024 11:27 AM EST CC: Patient presents with: Recheck: Follow up medication HPI Darren Reinoso is a 44 year old female who presents today for follow up. Aspergillus Infection and Asthma: Seeing ID and continuing treatment as ordered by Dr. Mendoza. Some improvement but having to continue voriconazole for the next few few months. Still with some shortness of breath and wheezing but continues to improve. Cough is resolving as well and not productive. O2 sats at home have been consistently in the 90s and not needed her home oxygen. Has appointment to establish with pulmonology at [facility] next month. DIABETES MELLITUS: Ms. Reinoso denies excessive thirst or increased frequency of urination, chest pain or dyspnea , numbness, tingling or pain in extremities, new or unusual visual symptoms, low sugar/hypoglycemic reactions, weight loss/gain, lightheadedness/dizziness, and bowel changes/loose stools.Follows a diabetic diet most of the time. She is compliant with medication(s) and is tolerating med(s) without any side effects. Reports she never stopped the trulicity as ordered and tolerating well. States she is tolerating it well without any GI issue. She reports checking her glucose on a once a day schedule with sugars in the 120s range but checked at random times. Patient's last HgA1C was Hemoglobin A1C (%) Date Value 10/04/2023 6.0 05/31/2023 6.8 04/24/2021 6.7 10/15/2020 6.1 Hemoglobin A1C (POCT) (%) Date Value 11/23/2022 6.2 01/23/2022 6.1 ) GERD: Controlled at this time. Denies heartburn, nausea, abdominal pain, or difficulty swallowing. REVIEW OF SYSTEMS See HPI PAST MEDICAL HISTORY Diagnosis Date Adjustment disorder with depressed mood Anxiety state, unspecified Dysmenorrhea Hearing loss no aids Other and unspecified ovarian cyst Ovarian cyst RECOVERING ALCOHOL, MARIJUANA & COCAINE PAST SURGICAL HISTORY Procedure Laterality Date COLONOSCOPY FLX DX W/COLLJ SPEC WHEN PFRMD 03/02/2017 Colonoscopy HEMORRHOIDECTOMY INCISE FINGER TENDON SHEATH Right 2002 INCISE FINGER TENDON SHEATH Right 07/23/2021 Right thumb and middle trigger finger releases LAPS ABD PRTM&OMENTUM DX W/WO SPEC BR/WA SPX Laparoscopy, diagnostic LIG/TRNSXJ FLP TUBE ABDL/VAG APPR UNI/BI Tubal ligation OVARIAN CYSTECTOMY 1990 ovarian cysts removed PAST SURGICAL HISTORY OF 1999 ORIF left ankle PAST SURGICAL HISTORY OF right middle finger surgery, staph debridment. PAST SURGICAL HISTORY OF 07/28/2013 left carpal tunnel release RECTAL EXAM UNDER ANESTHESIA 2014 RE[facility] MEDIAN N/CARPAL TUNNEL SURG 06/08/2014 right capral tunnel release TNOT ELBOW LATERAL/MEDIAL DEBRIDE OPEN Right 04/02/2017 Right elbow extensor tendon debridement TNOT ELBOW LATERAL/MEDIAL DEBRIDE OPEN Left 05/18/2018 Left elbow extensor tendon debridement TONSILLECTOMY PRIMARY/SECONDARY <AGE 12 Tonsillectomy ALLERGIES Amoxicillin, Codeine, Darvocet A500 [Propoxyphene N-Acetaminophen], Propoxyphene, and Sulfa (Sulfonamide Antibiotics) MEDICATIONS flash glucose sensor (FREESTYLE ANA PAULA 2 SENSOR) kit USE TO CHECK BLOOD SUGAR DAILY levothyroxine (SYNTHROID) 50 mcg tablet TAKE 1 TABLET BY MOUTH DAILY TAKE ON EMPTY STOMACH. FOR THYROID voriconazole (VFEND) 200 mg tablet Take 200 mg by mouth two times a day. famotidine (PEPCID) 20 mg tablet Take 1 tablet by mouth daily at bedtime. potassium chloride (K-TAB) 10 mEq tablet Take 1 tablet by mouth daily with breakfast. Take with lasix cetirizine (ZYRTEC) 10 mg tablet Take 1 tablet by mouth once daily. metoprolol tartrate, short acting, (LOPRESSOR) 25 mg tablet Take 1 tablet by mouth two times a day. ibuprofen (MOTRIN) 600 mg tablet Take 1 tablet by mouth every 8 hours as needed for pain. Nebulizer Accessories kit 1 Each every 4 hours as needed (wheezing or shortness of breath). albuterol (PROVENTIL) 2.5 mg /3 mL (0.083 %) nebulizer solution Use 3 mL via nebulizer every 4 hours as needed for wheezing/shortness of breath. Use over 5-15minutes. omeprazole (PRILOSEC) 40 mg capsule TAKE 1 CAPSULE BY MOUTH DAILY 1/2 HOUR BEFORE BREAKFAST dulaglutide (TRULICITY) 0.75 mg/0.5 mL pen injector Inject 0.75 mg subcutaneously one time a week. Inject dose once per week. Discard Pen After furosemide (LASIX) 40 mg tablet Take 1 tablet by mouth once daily. Blood Pressure Monitor 1 Each as directed. Dispense with Extra Large Cuff Blood Pressure Kit-Extra Large kit 1 Each once daily. lancets (UNILET SUPER THIN LANCETS) 30 gauge Test blood sugar(s) 4 times daily. blood sugar diagnostic (TRUE METRIX GLUCOSE TEST STRIP) test strip Test blood sugar(s) 4 times daily. diclofenac (VOLTAREN) 1 % topical gel Apply 2 g to affected area twice daily as needed. fluticasone (FLONASE) 50 mcg/actuation nasal spray Use 2 Sprays in each nostril once daily. Rinse mouth after use. TRUE METRIX GLUCOSE METER test blood sugar DIRECTED montelukast (SINGULAIR) 10 mg tablet lamoTRIgine (LAMICTAL) 200 mg tablet glucose 4 gram chewable tablet Take 3-4 tablets for hypoglycemia. Recheck blood sugar in 15 min after dose flash glucose scanning reader ([employer] ANA PAULA 2 READER) 1 Each once daily. lidocaine (ANECREAM5) crea Apply to affected area as needed. albuterol HFA (VENTOLIN HFA) 90 mcg/actuation inhaler Inhale 2 Puffs as instructed every 4 hours asneeded for wheezing/shortness of breath. ipratropium-albuterol (DUONEB) 0.5 mg-3 mg(2.5 mg base)/3 mL nebu INHALE 3 ML INSTRUCTED EVERY 4HOURS NEEDED FAMILY HISTORY Problem Relation Age of Onset Heart Mother Hypertension Father Psychiatry Father Bipolar Psychiatry Sister No Known Problems Brother No Known Problems Maternal Grandmother Cancer Maternal Grandfather Diabetes Paternal Grandmother Stroke Paternal Grandmother Great Grandmother No Known Problems Paternal Grandfather Cancer Paternal Aunt other ([place]) Paternal Aunt Great aunt Colon Cancer No Family History Social History Tobacco Use Smoking status: Every Day Current packs/day: 0.50 Average packs/day: 0.5 packs/day for 31.9 years (16.0 ttl pk-yrs) Types: Cigarettes Start date: 05/17/1992 Smokeless tobacco: Never Tobacco comments: 02/2024 - down to 5 or 6 per day Vaping Use Vaping status: Never Used Substance Use Topics Alcohol use: Not Currently Comment: Seldom- uses once every couple months Drug use: Not Currently Comment: marijuana h/o, 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 PHYSICAL EXAM BP 128/80 Pulse 88 Resp 16 Wt (!) 146.1 kg (322 lb) LMP 01/25/2024 (Approximate) SpO2 97% BMI 57.04 kg/m General Appearance: well appearing, in no acute distress, alert Eyes: conjunctiva pink and moist, no icterus, sclera white, non-injected Lungs: Lungs clear to auscultation. No wheezing, rhonchi, rales. Heart: RRR without murmur, gallop, or rubs. No ectopy Abdomen: Abdomen soft, non-tender. Bowel sounds normal. No masses, organomegaly Health maintenance reviewed with patient: Depression Screening Never done BP Controlled (<130/80) Never done Mammogram Screening Never done Colorectal Cancer Screening due on 03/02/2022 HbA1C due on 04/05/2024 DTaP,Tdap,Td Vaccine(2 - Td or Tdap) due on 05/31/2024 Hepatitis B Vaccine(1 of 3 - 19+ 3-dose series) due on 05/31/2024 Spirometry due on 05/31/2024 Cervical Cancer Screening due on 05/31/2024 Pneumococcal Vaccine(2 of 2 - PPSV23 or PCV20) due on 05/31/2024 Influenza Vaccine(1) due on 11/13/2024 Covid-19 Vaccine( - season) due on 02/01/2025 LDL Cholesterol due on 10/03/2024 Annual PCP Team Chronic Disease Visit due on 03/17/2025 HIV Screening Completed HPV Vaccine Aged Out Urine Albumin:Creatinine Ratio Discontinued Dilated Retinal Exam Discontinued Diabetic Foot Exam Discontinued Hepatitis C Screening Discontinued DATA REVIEWED: Most recent labs ASSESSMENT/PLAN: 1. 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 Mild intermittent asthma with acute exacerbation - ICD9: 493.92, ICD10: J45.21 - Mild intermittent asthma stable with infection resolving Keep upcoming appointment to establish with [facility] pulmonology - Continue current medications - Avoidance of triggers recommended 3. Controlled type 2 diabetes mellitus without complication, without long-term current use of insulin (HCC) - ICD9: 250.00, ICD10: E11.9 - Controlled - Continue current medications - did not stop trulicity as previously ordered by symptoms fully resolved and assessment normal. Ok to continue at lowest dose at this time. - Blood glucose monitoring on a once daily schedule - Counseled on healthy diet and regular exercise - Discussed need for and benefit of weight loss. BMI 57.04 kg/(m^2) - HEMOGLOBIN A1C (POC) - DULAGLUTIDE 0.75 MG/0.5 ML SUBCUTANEOUS PEN INJECTOR 4. Gastroesophageal reflux disease without esophagitis - ICD9: 530.81, ICD10: K21.9 Controlled at this time - Discussed lifestyle modifications including losing weight, limiting caffeine, no meals three hours before sleep, and head of bed elevation - OMEPRAZOLE 40 MG CAPSULE,DELAYED RELEASE 5. Morbid obesity with BMI of 50.0-59.9, adult (HCC) - ICD9: 278.01, V85.43, ICD10: E66.01, Z68.43 See #3 Weight decreasing - Behavioral and pharmacological intervention - DULAGLUTIDE 0.75 MG/0.5 ML SUBCUTANEOUS PEN INJECTOR 6. Encounter for immunization - ICD9: V03.89, ICD10: Z23 - PNEUMOCOCCAL VACCINE, 20 VALENT (PREVNAR 20) - INFLUENZA VACCINE, AGE 6MO-64YR, TRIVALENT (AFLURIA, FLULAVAL, FLUVIRIN, FLUZONE) 7. Essential hypertension - ICD9: 401.9, ICD10: I10 Not discussed today - DULAGLUTIDE 0.75 MG/0.5 ML SUBCUTANEOUS PEN INJECTOR 8. Other hyperlipidemia - ICD9: 272.4, ICD10: E78.49 Not discussed today - DULAGLUTIDE 0.75 MG/0.5 ML SUBCUTANEOUS PEN INJECTOR Prescription instructions reviewed with patient as applicable. Potential red flag symptoms discussed with the patient. Reviewed appropriate action plan to take if red flag symptoms occur. Patient agreeable to treatment plan. Caryn Lowery APRN.CNP documented in this encounterSt. [facility]11-27-2024 Telephone encounter Note * Telephone Encounter - Shelia Houston LPN - 04/12/2024 3:24 PM EST Prescription Refill Information The patient has been identified by name and date of : Yes Caregiver verified no other encounters exist for this prescription request: Yes Caregiver confirmed with patient/requestor that no other refills are due, in the near future, with this provider at this time: Yes The last office visit in the department: 03/17/24 Does the patient have a future office visit with this provider/department: Yes 04/28/24 Requested Prescriptions Pending Prescriptions Disp Refills flash glucose sensor (FREESTYLE ANA PAULA 2 SENSOR) kit 2 Each 3 Sig: USE TO CHECK BLOOD SUGAR DAILY levothyroxine (SYNTHROID) 50 mcg tablet 30 tablet 5 Sig: TAKE 1 TABLET BY MOUTH DAILY TAKE ON EMPTY STOMACH. FOR THYROID Shelia Houston LPN April 12, 2024 3:[address] [facility]11-27-2024 Miscellaneous Notes* Telephone Encounter - Shelia Houston LPN - 04/12/2024 3:24 PM EST Prescription Refill Information The patient has been identified by name and date of : Yes Caregiver verified no other encounters exist for this prescription request: Yes Caregiver confirmed with patient/requestor that no other refills are due, in the near future, with this provider at this time: Yes The last office visit in the department: 03/17/24 Does the patient have a future office visit with this provider/department: Yes 04/28/24 Requested Prescriptions Pending Prescriptions Disp Refills flash glucose sensor (FREESTYLE ANA PAULA 2 SENSOR) kit 2 Each 3 Sig: USE TO CHECK BLOOD SUGAR DAILY levothyroxine (SYNTHROID) 50 mcg tablet 30 tablet 5 Sig: TAKE 1 TABLET BY MOUTH DAILY TAKE ON EMPTY STOMACH. FOR THYROID Shelia Houston LPN April 12, 2024 3:25 PM documented in this encounterSt. Anthony'S Hospital11-20-2024 Telephone encounter Note * Telephone Encounter - Shazia Lee APRN.CNP - 04/05/2024 10:02 AM EST Wound culture reveals Few enterococcus faecalis Reached out and spoke with patient and states wound remains draining Its getting smaller Changing the dressing daily Continue taking the Doxycyline Wound care [facility] Work Phone: 1(919) 389-225611-20-2024 Miscellaneous Notes* Telephone Encounter - Shazia Lee APRN.CNP - 04/05/2024 10:02 AM EST Wound culture reveals Few enterococcus faecalis Reached out and spoke with patient and states wound remains draining Its getting smaller Changing the dressing daily Continue taking the Doxycyline Wound care documented in this encounterSt. Anthony'S Hospital11-17-2024 Instructions* Patient Instructions* Victoria Nguyen APRN.CNP - 04/02/2024 2:01 PM EST ASSESSMENT/PLAN: 1. Abscess packing removal - ICD9: V58.30, ICD10: Z48.00 - removed packing and covered with large bandaid. - patient tolerated procedure well. - Follow-up with your PCP in 3-5 days if symptoms have not improved or sooner if symptoms worsen - Discussed red flags and need for immediate medical evaluation if any occur. - Discussed supportive care treatment with fluids, rest and analgesia. - Discussed expected course of illness Victoria Nguyen APRN.CNP documented in this encounterSt. Anthony'S Hospital11-17-2024 NoteWood [facility]11-17-2024 History of Present illness Narrative* Victoria Nguyen APRN.CNP - 04/02/2024 1:55 PM EST Subjective HPI Darren Reinoso is a 44 year old female who presents for wound packing removal. Packing was placed yesterday here by me. She states the area feels much better and she no longer has a fever. Feeling much better Review of Systems Constitutional: Negative for chills and fever. Musculoskeletal: Negative for myalgias. Skin: Negative for itching and rash. BP 146/87 Pulse 93 Temp 36.4 C (97.5 F) (Left Tympanic) Resp 16 Wt (!) 147 kg (324 lb) LMP 01/25/2024 (Approximate) BMI 57.39 kg/m PAST MEDICAL HISTORY Diagnosis Date Adjustment disorder with depressed mood Anxiety state, unspecified Dysmenorrhea Hearing loss no aids Other and unspecified ovarian cyst Ovarian cyst RECOVERING ALCOHOL, MARIJUANA & COCAINE PAST SURGICAL HISTORY Procedure Laterality Date COLONOSCOPY FLX DX W/COLLJ SPEC WHEN PFRMD 03/02/2017 Colonoscopy HEMORRHOIDECTOMY INCISE FINGER TENDON SHEATH Right 2002 INCISE FINGER TENDON SHEATH Right 07/23/2021 Right thumb and middle trigger finger releases LAPS ABD PRTM&OMENTUM DX W/WO SPEC BR/WA SPX Laparoscopy, diagnostic LIG/TRNSXJ FLP TUBE ABDL/VAG APPR UNI/BI Tubal ligation OVARIAN CYSTECTOMY 1990 ovarian cysts removed PAST SURGICAL HISTORY OF 1999 ORIF left ankle PAST SURGICAL HISTORY OF right middle finger surgery, staph debridment. PAST SURGICAL HISTORY OF 07/28/2013 left carpal tunnel release RECTAL EXAM UNDER ANESTHESIA 2014 RE[facility] MEDIAN N/CARPAL TUNNEL SURG 06/08/2014 right capral tunnel release TNOT ELBOW LATERAL/MEDIAL DEBRIDE OPEN Right 04/02/2017 Right elbow extensor tendon debridement TNOT ELBOW LATERAL/MEDIAL DEBRIDE OPEN Left 05/18/2018 Left elbow extensor tendon debridement TONSILLECTOMY PRIMARY/SECONDARY <AGE 12 Tonsillectomy ALLERGIES Amoxicillin, Codeine, Darvocet A500 [Propoxyphene N-Acetaminophen], Propoxyphene, and Sulfa (Sulfonamide Antibiotics) MEDICATIONS doxycycline (VIBRA-TABS) 100 mg tablet Take 1 tablet by mouth two times a day for 7 days. voriconazole (VFEND) 200 mg tablet Take 200 mg by mouth two times a day. famotidine (PEPCID) 20 mg tablet Take 1 tablet by mouth daily at bedtime. potassium chloride (K-TAB) 10 mEq tablet Take 1 tablet by mouth daily with breakfast. Take with lasix cetirizine (ZYRTEC) 10 mg tablet Take 1 tablet by mouth once daily. metoprolol tartrate, short acting, (LOPRESSOR) 25 mg tablet Take 1 tablet by mouth two times a day. ibuprofen (MOTRIN) 600 mg tablet Take 1 tablet by mouth every 8 hours as needed for pain. Nebulizer Accessories kit 1 Each every 4 hours as needed (wheezing or shortness of breath). albuterol (PROVENTIL) 2.5 mg /3 mL (0.083 %) nebulizer solution Use 3 mL via nebulizer every 4 hours as needed for wheezing/shortness of breath. Use over 5-15minutes. flash glucose sensor (Superconductor TechnologiesSTYLE ANA PAULA 2 SENSOR) kit USE TO CHECK BLOOD SUGAR DAILY omeprazole (PRILOSEC) 40 mg capsule TAKE 1 CAPSULE BY MOUTH DAILY 1/2 HOUR BEFORE BREAKFAST furosemide (LASIX) 40 mg tablet Take 1 tablet by mouth once daily. levothyroxine (SYNTHROID) 50 mcg tablet TAKE 1 TABLET BY MOUTH DAILY TAKE ON EMPTY STOMACH. FOR THYROID Blood Pressure Monitor 1 Each as directed. Dispense with Extra Large Cuff Blood Pressure Kit-Extra Large kit 1 Each once daily. lancets (UNILET SUPER THIN LANCETS) 30 gauge Test blood sugar(s) 4 times daily. blood sugar diagnostic (TRUE METRIX GLUCOSE TEST STRIP) test strip Test blood sugar(s) 4 times daily. diclofenac (VOLTAREN) 1 % topical gel Apply 2 g to affected area twice daily as needed. fluticasone (FLONASE) 50 mcg/actuation nasal spray Use 2 Sprays in each nostril once daily. Rinse mouth after use. TRUE METRIX GLUCOSE METER test blood sugar DIRECTED montelukast (SINGULAIR) 10 mg tablet lamoTRIgine (LAMICTAL) 200 mg tablet glucose 4 gram chewable tablet Take 3-4 tablets for hypoglycemia. Recheck blood sugar in 15 min after dose flash glucose scanning reader (FREESTYLE ANA PAULA 2 READER) 1 Each once daily. lidocaine (ANECREAM5) crea Apply to affected area as needed. albuterol HFA (VENTOLIN HFA) 90 mcg/actuation inhaler Inhale 2 Puffs as instructed every 4 hours asneeded for wheezing/shortness of breath. ipratropium-albuterol (DUONEB) 0.5 mg-3 mg(2.5 mg base)/3 mL nebu INHALE 3 ML INSTRUCTED EVERY 4HOURS NEEDED dulaglutide (TRULICITY) 0.75 mg/0.5 mL pen injector Inject 0.75 mg subcutaneously one time a week. Inject dose once per week. Discard Pen After FAMILY HISTORY Problem Relation Age of Onset Heart Mother Hypertension Father Psychiatry Father Bipolar Psychiatry Sister No Known Problems Brother No Known Problems Maternal Grandmother Cancer Maternal Grandfather Diabetes Paternal Grandmother Stroke Paternal Grandmother Great Grandmother No Known Problems Paternal Grandfather Cancer Paternal Aunt other ([place]) Paternal Aunt Great aunt Colon Cancer No Family History Social History Tobacco Use Smoking status: Every Day Current packs/day: 0.50 Average packs/day: 0.5 packs/day for 31.9 years (15.9 ttl pk-yrs) Types: Cigarettes Start date: 05/17/1992 Smokeless tobacco: Never Tobacco comments: 02/2024 - down to 5 or 6 per day Vaping Use Vaping status: Never Used Substance Use Topics Alcohol use: Not Currently Comment: Seldom- uses once every couple months Drug use: Not Currently Comment: marijuana h/o, 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 Objective Physical Exam Vitals and nursing note reviewed. Constitutional: General: She is not in acute distress. Appearance: Normal appearance. She is not ill-appearing. Skin: General: Skin is warm and dry. Capillary Refill: Capillary refill takes less than 2 seconds. Findings: No erythema or rash. Neurological: Mental Status: She is alert. ASSESSMENT/PLAN: 1. Abscess packing removal - ICD9: V58.30, ICD10: Z48.00 - removed packing and covered with large bandaid. - patient tolerated procedure well. - Follow-up with your PCP in 3-5 days if symptoms have not improved or sooner if symptoms worsen - Discussed red flags and need for immediate medical evaluation if any occur. - Discussed supportive care treatment with fluids, rest and analgesia. - Discussed expected course of illness Victoria Nguyen APRN.JACINTA documented in this encounterSt. [facility] Instructions* Patient Instructions* Victoria Nguyen APRN.CNP - 04/01/2024 4:11 PM EST ASSESSMENT/PLAN: 1. Boil - ICD9: 680.9, ICD10: L02.92 - ABSCESS AND WOUND CULTURE WITH GRAM STAIN - patient may return here for packing removal in 1-2 days or remove herself. - continue taking Doxycycline. - Follow-up with your PCP in 3-5 days if symptoms have not improved or sooner if symptoms worsen - Discussed red flags and need for immediate medical evaluation if any occur. - Discussed supportive care treatment with fluids, rest and analgesia. - Discussed expected course of illness Victoria Nguyen APRN.CNP ABSCESS (BOIL): You have a skin abscess, or boil. Boils usually develop when Staph bacteria get into the small glands or hair follicles in the skin and form a pus pocket. After an abscess is properly drained, it will most often heal without any problems. You should not squeeze an abscess or boil to drain it; this can cause the infection to spread to other areas under the skin. Boils are contagious, so you shoulddispose of soiled bandages carefully and not share your towel or wash cloth with others. A boil is lanced to start the draining. Sometimes a loose gauze pack is put in the abscess pocket to promote drainage; this should be removed in 1-3 days. Soak the area in warm water for 20-30 minutes 3-4 times daily to help the healing. Oral antibiotics may be needed if the infection is severe or if it seems to be spreading. Please call your doctor if you have increased pain or swelling, chills or fever, red streaks going up the arm or leg, or continued pus drainage after 3-4 days. documented in this encounterSt. [facility] History of Present illness Narrative* Victoria Nguyen APRN.CNP - 04/01/2024 4:06 PM EST Images from the original note were not included. Subjective Abscess Associated symptoms include chills and a fever. Pertinent negatives include no nausea, rash or vomiting. Darren Reinoso is a 44 year old female who presents with a boil on her right thigh. She was seen here yesterday for same and placed on doxycycline. She also put mupirocin ointment on it. Today it started draining clear and red fluid. She states she has had a low grade temperature of 100 degrees. She has had some chills. Denies nausea or vomiting. She has not taken any medication for fever. Review of Systems Constitutional: Positive for chills and fever. Respiratory: Negative. Cardiovascular: Negative. Gastrointestinal: Negative for nausea and vomiting. Skin: Negative for rash. See HPI BP 128/86 Pulse 88 Temp 36.9 C (98.4 F) Resp 20 Wt (!) 147.3 kg (324 lb 11.8 oz) LMP 01/25/2024 (Approximate) SpO2 97% BMI 57.52 kg/m PAST MEDICAL HISTORY Diagnosis Date Adjustment disorder with depressed mood Anxiety state, unspecified Dysmenorrhea Hearing loss no aids Other and unspecified ovarian cyst Ovarian cyst RECOVERING ALCOHOL, MARIJUANA & COCAINE PAST SURGICAL HISTORY Procedure Laterality Date COLONOSCOPY FLX DX W/COLLJ SPEC WHEN PFRMD 03/02/2017 Colonoscopy HEMORRHOIDECTOMY INCISE FINGER TENDON SHEATH Right 2002 INCISE FINGER TENDON SHEATH Right 07/23/2021 Right thumb and middle trigger finger releases LAPS ABD PRTM&OMENTUM DX W/WO SPEC BR/WA SPX Laparoscopy, diagnostic LIG/TRNSXJ FLP TUBE ABDL/VAG APPR UNI/BI Tubal ligation OVARIAN CYSTECTOMY 1990 ovarian cysts removed PAST SURGICAL HISTORY OF 1999 ORIF left ankle PAST SURGICAL HISTORY OF right middle finger surgery, staph debridment. PAST SURGICAL HISTORY OF 07/28/2013 left carpal tunnel release RECTAL EXAM UNDER ANESTHESIA 2014 [facility] N/CARPAL TUNNEL SURG 06/08/2014 right capral tunnel release TNOT ELBOW LATERAL/MEDIAL DEBRIDE OPEN Right 04/02/2017 Right elbow extensor tendon debridement TNOT ELBOW LATERAL/MEDIAL DEBRIDE OPEN Left 05/18/2018 Left elbow extensor tendon debridement TONSILLECTOMY PRIMARY/SECONDARY <AGE 12 Tonsillectomy ALLERGIES Amoxicillin, Codeine, Darvocet A500 [Propoxyphene N-Acetaminophen], Propoxyphene, and Sulfa (Sulfonamide Antibiotics) MEDICATIONS doxycycline (VIBRA-TABS) 100 mg tablet Take 1 tablet by mouth two times a day for 7 days. voriconazole (VFEND) 200 mg tablet Take 200 mg by mouth two times a day. famotidine (PEPCID) 20 mg tablet Take 1 tablet by mouth daily at bedtime. potassium chloride (K-TAB) 10 mEq tablet Take 1 tablet by mouth daily with breakfast. Take with lasix cetirizine (ZYRTEC) 10 mg tablet Take 1 tablet by mouth once daily. metoprolol tartrate, short acting, (LOPRESSOR) 25 mg tablet Take 1 tablet by mouth two times a day. ibuprofen (MOTRIN) 600 mg tablet Take 1 tablet by mouth every 8 hours as needed for pain. Nebulizer Accessories kit 1 Each every 4 hours as needed (wheezing or shortness of breath). albuterol (PROVENTIL) 2.5 mg /3 mL (0.083 %) nebulizer solution Use 3 mL via nebulizer every 4 hours as needed for wheezing/shortness of breath. Use over 5-15minutes. flash glucose sensor ([employer] ANA PAULA 2 SENSOR) kit USE TO CHECK BLOOD SUGAR DAILY omeprazole (PRILOSEC) 40 mg capsule TAKE 1 CAPSULE BY MOUTH DAILY 1/2 HOUR BEFORE BREAKFAST furosemide (LASIX) 40 mg tablet Take 1 tablet by mouth once daily. levothyroxine (SYNTHROID) 50 mcg tablet TAKE 1 TABLET BY MOUTH DAILY TAKE ON EMPTY STOMACH. FOR THYROID Blood Pressure Monitor 1 Each as directed. Dispense with Extra Large Cuff Blood Pressure Kit-Extra Large kit 1 Each once daily. lancets (UNILET SUPER THIN LANCETS) 30 gauge Test blood sugar(s) 4 times daily. blood sugar diagnostic (TRUE METRIX GLUCOSE TEST STRIP) test strip Test blood sugar(s) 4 times daily. diclofenac (VOLTAREN) 1 % topical gel Apply 2 g to affected area twice daily as needed. fluticasone (FLONASE) 50 mcg/actuation nasal spray Use 2 Sprays in each nostril once daily. Rinse mouth after use. TRUE METRIX GLUCOSE METER test blood sugar DIRECTED montelukast (SINGULAIR) 10 mg tablet lamoTRIgine (LAMICTAL) 200 mg tablet glucose 4 gram chewable tablet Take 3-4 tablets for hypoglycemia. Recheck blood sugar in 15 min after dose flash glucose scanning reader ([employer] TechnologiesSTYLE ANA PAUAL 2 READER) 1 Each once daily. lidocaine (ANECREAM5) crea Apply to affected area as needed. albuterol HFA (VENTOLIN HFA) 90 mcg/actuation inhaler Inhale 2 Puffs as instructed every 4 hours asneeded for wheezing/shortness of breath. ipratropium-albuterol (DUONEB) 0.5 mg-3 mg(2.5 mg base)/3 mL nebu INHALE 3 ML INSTRUCTED EVERY 4HOURS NEEDED dulaglutide (TRULICITY) 0.75 mg/0.5 mL pen injector Inject 0.75 mg subcutaneously one time a week. Inject dose once per week. Discard Pen After FAMILY HISTORY Problem Relation Age of Onset Heart Mother Hypertension Father Psychiatry Father Bipolar Psychiatry Sister No Known Problems Brother No Known Problems Maternal Grandmother Cancer Maternal Grandfather Diabetes Paternal Grandmother Stroke Paternal Grandmother Great Grandmother No Known Problems Paternal Grandfather Cancer Paternal Aunt other ([place]) Paternal Aunt Great aunt Colon Cancer No Family History Social History Tobacco Use Smoking status: Every Day Current packs/day: 0.50 Average packs/day: 0.5 packs/day for 31.9 years (15.9 ttl pk-yrs) Types: Cigarettes Start date: 05/17/1992 Smokeless tobacco: Never Tobacco comments: 02/2024 - down to 5 or 6 per day Vaping Use Vaping status: Never Used Substance Use Topics Alcohol use: Not Currently Comment: Seldom- uses once every couple months Drug use: Not Currently Comment: marijuana h/o, 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 Objective Physical Exam Vitals and nursing note reviewed. Constitutional: General: She is not in acute distress. Appearance: Normal appearance. She is not ill-appearing. Cardiovascular: Rate and Rhythm: Normal rate. Pulmonary: Effort: Pulmonary effort is normal. Skin: General: Skin is warm and dry. Capillary Refill: Capillary refill takes less than 2 seconds. Findings: Erythema present. No rash. Neurological: Mental Status: She is alert. UNIVERSAL PROTOCOL / SAFETY CHECKLIST Procedure to be Performed: incision and drainage boil right thigh Sign In: A Moment of CARE was completed. Personnel directly involved with the procedure wore the appropriate PPE (Personal Protective Equipment). No special equipment needed. Patient/Surrogate Stated/Verified: PATIENT VERIFIED(optional for EMERGENT procedures): Patient name, Date of , Relevant allergies, and The intended procedure Time Out Communication: Intended patient and procedure match the source documents. Consent documented and matches the intended procedure. Relevant labs, photos, and/or imaging studies have been reviewed. Correct side/site marked and visible. Medications required for procedure verified. Fire risk assessed and interventions discussed. No implant(s) inserted. Sign Out: SIGN OUT (optional for EMERGENT procedures): All specimen containers correctly labeled. All instruments, equipment, possible retained foreign bodies accounted for. Post-procedure follow-up management communicated and Plan of Care Visit completed when applicable. Victoria Nguyen APRN.CNP ASSESSMENT/PLAN: 1. Boil - ICD9: 680.9, ICD10: L02.92 - ABSCESS AND WOUND CULTURE WITH GRAM STAIN - patient may return here for packing removal in 1-2 days or remove herself. - continue taking Doxycycline. - Follow-up with your PCP in 3-5 days if symptoms have not improved or sooner if symptoms worsen - Discussed red flags and need for immediate medical evaluation if any occur. - Discussed supportive care treatment with fluids, rest and analgesia. - Discussed expected course of illness Victoria Nguyen APRN.CNP documented in this encounterSt. [facility] History of Present illness Narrative* Janie Vinson APRN.CNP - 03/31/2024 2:44 PM EST Images from the original note were not included. Subjective Male with complaints of possible abscess on her right inner thigh. Patient says she has had them before. Patient says it started about 2 days ago. Denies any fever chills nausea vomiting at this time. The history is provided by the patient. No hydro pneumatic tester was used. Review of Systems Constitutional: Negative. Skin: Negative. Objective Physical Exam Constitutional: Appearance: Normal appearance. Pulmonary: Effort: Pulmonary effort is normal. Musculoskeletal: Legs: Comments: Centimeter by 2 cm firm area no induration noted no redness spreading. Demand Planning Analyst present Neurological: Mental Status: She is alert. PAST MEDICAL HISTORY Diagnosis Date Adjustment disorder with depressed mood Anxiety state, unspecified Dysmenorrhea Hearing loss no aids Other and unspecified ovarian cyst Ovarian cyst RECOVERING ALCOHOL, MARIJUANA & COCAINE PAST SURGICAL HISTORY Procedure Laterality Date COLONOSCOPY FLX DX W/COLLJ SPEC WHEN PFRMD 03/02/2017 Colonoscopy HEMORRHOIDECTOMY INCISE FINGER TENDON SHEATH Right 2002 INCISE FINGER TENDON SHEATH Right 07/23/2021 Right thumb and middle trigger finger releases LAPS ABD PRTM&OMENTUM DX W/WO SPEC BR/WA SPX Laparoscopy, diagnostic LIG/TRNSXJ FLP TUBE ABDL/VAG APPR UNI/BI Tubal ligation OVARIAN CYSTECTOMY 1990 ovarian cysts removed PAST SURGICAL HISTORY OF 1999 ORIF left ankle PAST SURGICAL HISTORY OF right middle finger surgery, staph debridment. PAST SURGICAL HISTORY OF 07/28/2013 left carpal tunnel release RECTAL EXAM UNDER ANESTHESIA 2014 [facility] N/CARPAL TUNNEL SURG 06/08/2014 right capral tunnel release TNOT ELBOW LATERAL/MEDIAL DEBRIDE OPEN Right 04/02/2017 Right elbow extensor tendon debridement TNOT ELBOW LATERAL/MEDIAL DEBRIDE OPEN Left 05/18/2018 Left elbow extensor tendon debridement TONSILLECTOMY PRIMARY/SECONDARY <AGE 12 Tonsillectomy ALLERGIES Amoxicillin, Codeine, Darvocet A500 [Propoxyphene N-Acetaminophen], Propoxyphene, and Sulfa (Sulfonamide Antibiotics) MEDICATIONS voriconazole (VFEND) 200 mg tablet Take 200 mg by mouth two times a day. famotidine (PEPCID) 20 mg tablet Take 1 tablet by mouth daily at bedtime. potassium chloride (K-TAB) 10 mEq tablet Take 1 tablet by mouth daily with breakfast. Take with lasix cetirizine (ZYRTEC) 10 mg tablet Take 1 tablet by mouth once daily. metoprolol tartrate, short acting, (LOPRESSOR) 25 mg tablet Take 1 tablet by mouth two times a day. ibuprofen (MOTRIN) 600 mg tablet Take 1 tablet by mouth every 8 hours as needed for pain. Nebulizer Accessories kit 1 Each every 4 hours as needed (wheezing or shortness of breath). albuterol (PROVENTIL) 2.5 mg /3 mL (0.083 %) nebulizer solution Use 3 mL via nebulizer every 4 hours as needed for wheezing/shortness of breath. Use over 5-15minutes. flash glucose sensor (FREE[employer]YLE ANA PAULA 2 SENSOR) kit USE TO CHECK BLOOD SUGAR DAILY omeprazole (PRILOSEC) 40 mg capsule TAKE 1 CAPSULE BY MOUTH DAILY 1/2 HOUR BEFORE BREAKFAST furosemide (LASIX) 40 mg tablet Take 1 tablet by mouth once daily. levothyroxine (SYNTHROID) 50 mcg tablet TAKE 1 TABLET BY MOUTH DAILY TAKE ON EMPTY STOMACH. FOR THYROID Blood Pressure Monitor 1 Each as directed. Dispense with Extra Large Cuff Blood Pressure Kit-Extra Large kit 1 Each once daily. lancets (UNILET SUPER THIN LANCETS) 30 gauge Test blood sugar(s) 4 times daily. blood sugar diagnostic (TRUE METRIX GLUCOSE TEST STRIP) test strip Test blood sugar(s) 4 times daily. diclofenac (VOLTAREN) 1 % topical gel Apply 2 g to affected area twice daily as needed. fluticasone (FLONASE) 50 mcg/actuation nasal spray Use 2 Sprays in each nostril once daily. Rinse mouth after use. TRUE METRIX GLUCOSE METER test blood sugar DIRECTED montelukast (SINGULAIR) 10 mg tablet lamoTRIgine (LAMICTAL) 200 mg tablet glucose 4 gram chewable tablet Take 3-4 tablets for hypoglycemia. Recheck blood sugar in 15 min after dose flash glucose scanning reader ([employer] ANA PAULA 2 READER) 1 Each once daily. lidocaine (ANECREAM5) crea Apply to affected area as needed. albuterol HFA (VENTOLIN HFA) 90 mcg/actuation inhaler Inhale 2 Puffs as instructed every 4 hours asneeded for wheezing/shortness of breath. ipratropium-albuterol (DUONEB) 0.5 mg-3 mg(2.5 mg base)/3 mL nebu INHALE 3 ML INSTRUCTED EVERY 4HOURS NEEDED doxycycline (VIBRA-TABS) 100 mg tablet Take 1 tablet by mouth two times a day for 7 days. atorvastatin (LIPITOR) 10 mg tablet Take 1 tablet by mouth once daily. (Patient not taking: Reported on 02/21/2024) tiZANidine (ZANAFLEX) 4 mg tablet Take 1 tablet by mouth every 8 hours as needed. (Patient not taking: Reported on 03/31/2024) ondansetron orally disintegrating (ZOFRAN ODT) 4 mg disintegrating tablet Take 1 tablet by mouth every 6 hours as needed for nausea/vomiting. (Patient not taking: Reported on 02/21/2024) dulaglutide (TRULICITY) 0.75 mg/0.5 mL pen injector Inject 0.75 mg subcutaneously one time a week. Inject dose once per week. Discard Pen After hydrOXYzine HCl (ATARAX) 25 mg tablet Take 1 tablet by mouth at bedtime as needed for anxiety. (Patient not taking: Reported on 02/21/2024) promethazine (PHENERGAN) 25 mg tablet Take 1 tablet by mouth every 8 hours as needed. (Patient not taking: Reported on 02/21/2024) SYMBICORT 160-4.5 mcg/actuation inhaler (Patient not taking: Reported on 02/21/2024) FAMILY HISTORY Problem Relation Age of Onset Heart Mother Hypertension Father Psychiatry Father Bipolar Psychiatry Sister No Known Problems Brother No Known Problems Maternal Grandmother Cancer Maternal Grandfather Diabetes Paternal Grandmother Stroke Paternal Grandmother Great Grandmother No Known Problems Paternal Grandfather Cancer Paternal Aunt other ([place]) Paternal Aunt Great aunt Colon Cancer No Family History Social History Tobacco Use Smoking status: Every Day Current packs/day: 0.50 Average packs/day: 0.5 packs/day for 31.9 years (15.9 ttl pk-yrs) Types: Cigarettes Start date: 05/17/1992 Smokeless tobacco: Never Tobacco comments: 02/2024 - down to 5 or 6 per day Vaping Use Vaping status: Never Used Substance Use Topics Alcohol use: Not Currently Comment: Seldom- uses once every couple months Drug use: Not Currently Comment: marijuana h/o, 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 ASSESSMENT/PLAN: 1. Skin infection - ICD9: 686.9, ICD10: L08.9 - DOXYCYCLINE HYCLATE 100 MG TABLET Educated about proper use of medication and supportive therapies. Educated to follow-up with primary care if signs and symptoms or not improving. Patient was agreeable to care plan. Red flag symptomswere also discussed with patient and to report to the ER if any of these occur. The sensitive examination was discussed with the Patient or Patient's Authorized Evening Sitter. Asapplicable, any other physician, advance practice provider, medical student, or other health professional student that will be observing or involved in the sensitive examination for educational or training purposes was discussed with the Patient or Authorized Evening Sitter. The Patient or Authorized Evening Sitter has agreed to proceed with the sensitive examination. (Sensitive examination includes inspection and/or palpation of the breasts, pelvis, prostate and anorectal regions) Janie Vinosn APRN.JACINTA documented in this encounterSt. [facility]11-[facility] Telephone encounter Note * Telephone Encounter - Tete Gonzalez RN - 03/17/2024 10:35 AM EDT The patient has been identified by name and date of : Yes Caregiver verified no other encounters exist for this prescription request: Yes Caregiver confirmed with patient/requestor that no other refills are due, in the near future, with this provider at this time: Yes The last office visit in the department: 03/17/2024 Does the patient have a future office visit with this provider/department: Yes 04/28/2024 Requested Prescriptions Pending Prescriptions Disp Refills famotidine (PEPCID) 20 mg tablet 90 tablet 3 Sig: Take 1 tablet by mouth daily at bedtime. potassium chloride (K-TAB) 10 mEq tablet 90 tablet 3 Sig: Take 1 tablet by mouth daily with breakfast. Take with inocencio Gonzalez RN [facility]11[facility] Miscellaneous Notes* Telephone Encounter - Tete Gonzalez RN - 03/17/2024 10:35 AM EDT The patient has been identified by name and date of : Yes Caregiver verified no other encounters exist for this prescription request: Yes Caregiver confirmed with patient/requestor that no other refills are due, in the near future, with this provider at this time: Yes The last office visit in the department: 03/17/2024 Does the patient have a future office visit with this provider/department: Yes 04/28/2024 Requested Prescriptions Pending Prescriptions Disp Refills famotidine (PEPCID) 20 mg tablet 90 tablet 3 Sig: Take 1 tablet by mouth daily at bedtime. potassium chloride (K-TAB) 10 mEq tablet 90 tablet 3 Sig: Take 1 tablet by mouth daily with breakfast. Take with inocencio Gonzalez RN documented in this encounterSt. [facility]11-01-2024 [facility] History of Present illness Narrative* Caryn Lowery APRN.ICT SUPPORT ENGINEER - 03/17/2024 8:17 AM EDT CC: Patient presents with: Recheck: Follow up SOB HPI Darren Reinoso is a 44 year old female who presents today for follow up on respiratory concerns. Patient has had ongoing respiratory concerns for the past 2-3 months with no improvement with antibiotic treatment. Has history of asthma and currently sees [facility]. With no improvement, sputum cultures were completed showing a form of aspergillus. Being treated for aspergillus by Dr. Mendoza, infectious disease. Is starting to feel better with O2 sats remaining above 95%. Not needing to use oxygen at home. Cough wheezing and shortness of breath is improving. Able to walk around a store but will stop for a short period. Prior to being treated she wasn't able to walk from the car to the door.The chest tightness is also improving. Has EAMON and continues usage of CPAP but needing new supplies. Also has appointment to establish with our pulmonology group. Denies fever, chills, N/V/D, edema, or palpitations. REVIEW OF SYSTEMS See HPI PAST MEDICAL HISTORY Diagnosis Date Adjustment disorder with depressed mood Anxiety state, unspecified Dysmenorrhea Hearing loss no aids Other and unspecified ovarian cyst Ovarian cyst RECOVERING ALCOHOL, MARIJUANA & COCAINE PAST SURGICAL HISTORY Procedure Laterality Date COLONOSCOPY FLX DX W/COLLJ SPEC WHEN PFRMD 03/02/2017 Colonoscopy HEMORRHOIDECTOMY INCISE FINGER TENDON SHEATH Right 2002 INCISE FINGER TENDON SHEATH Right 07/23/2021 Right thumb and middle trigger finger releases LAPS ABD PRTM&OMENTUM DX W/WO SPEC BR/WA SPX Laparoscopy, diagnostic LIG/TRNSXJ FLP TUBE ABDL/VAG APPR UNI/BI Tubal ligation OVARIAN CYSTECTOMY 1990 ovarian cysts removed PAST SURGICAL HISTORY OF 1999 ORIF left ankle PAST SURGICAL HISTORY OF right middle finger surgery, staph debridment. PAST SURGICAL HISTORY OF 07/28/2013 left carpal tunnel release RECTAL EXAM UNDER ANESTHESIA 2014 REVISE MEDIAN N/CARPAL TUNNEL SURG 06/08/2014 right capral tunnel release TNOT ELBOW LATERAL/MEDIAL DEBRIDE OPEN Right 04/02/2017 Right elbow extensor tendon debridement TNOT ELBOW LATERAL/MEDIAL DEBRIDE OPEN Left 05/18/2018 Left elbow extensor tendon debridement TONSILLECTOMY PRIMARY/SECONDARY <AGE 12 Tonsillectomy ALLERGIES Amoxicillin, Codeine, Darvocet A500 [Propoxyphene N-Acetaminophen], Propoxyphene, and Sulfa (Sulfonamide Antibiotics) MEDICATIONS voriconazole (VFEND) 200 mg tablet Take 200 mg by mouth two times a day. atorvastatin (LIPITOR) 10 mg tablet Take 1 tablet by mouth once daily. (Patient not taking: Reported on 02/21/2024) cetirizine (ZYRTEC) 10 mg tablet Take 1 tablet by mouth once daily. metoprolol tartrate, short acting, (LOPRESSOR) 25 mg tablet Take 1 tablet by mouth two times a day. ibuprofen (MOTRIN) 600 mg tablet Take 1 tablet by mouth every 8 hours as needed for pain. Nebulizer Accessories kit 1 Each every 4 hours as needed (wheezing or shortness of breath). albuterol (PROVENTIL) 2.5 mg /3 mL (0.083 %) nebulizer solution Use 3 mL via nebulizer every 4 hours as needed for wheezing/shortness of breath. Use over 5-15minutes. tiZANidine (ZANAFLEX) 4 mg tablet Take 1 tablet by mouth every 8 hours as needed. ondansetron orally disintegrating (ZOFRAN ODT) 4 mg disintegrating tablet Take 1 tablet by mouth every 6 hours as needed for nausea/vomiting. (Patient not taking: Reported on 02/21/2024) flash glucose sensor (FREESTYLE ANA PAULA 2 SENSOR) kit USE TO CHECK BLOOD SUGAR DAILY omeprazole (PRILOSEC) 40 mg capsule TAKE 1 CAPSULE BY MOUTH DAILY 1/2 HOUR BEFORE BREAKFAST dulaglutide (TRULICITY) 0.75 mg/0.5 mL pen injector Inject 0.75 mg subcutaneously one time a week. Inject dose once per week. Discard Pen After furosemide (LASIX) 40 mg tablet Take 1 tablet by mouth once daily. levothyroxine (SYNTHROID) 50 mcg tablet TAKE 1 TABLET BY MOUTH DAILY TAKE ON EMPTY STOMACH. FOR THYROID Blood Pressure Monitor 1 Each as directed. Dispense with Extra Large Cuff Blood Pressure Kit-Extra Large kit 1 Each once daily. lancets (UNILET SUPER THIN LANCETS) 30 gauge Test blood sugar(s) 4 times daily. blood sugar diagnostic (TRUE METRIX GLUCOSE TEST STRIP) test strip Test blood sugar(s) 4 times daily. potassium chloride (K-TAB) 10 mEq tablet Take 1 tablet by mouth daily with breakfast. Take with lasix famotidine (PEPCID) 20 mg tablet Take 1 tablet by mouth daily at bedtime. hydrOXYzine HCl (ATARAX) 25 mg tablet Take 1 tablet by mouth at bedtime as needed for anxiety. (Patient not taking: Reported on 02/21/2024) diclofenac (VOLTAREN) 1 % topical gel Apply 2 g to affected area twice daily as needed. fluticasone (FLONASE) 50 mcg/actuation nasal spray Use 2 Sprays in each nostril once daily. Rinse mouth after use. promethazine (PHENERGAN) 25 mg tablet Take 1 tablet by mouth every 8 hours as needed. (Patient not taking: Reported on 02/21/2024) TRUE METRIX GLUCOSE METER test blood sugar DIRECTED SYMBICORT 160-4.5 mcg/actuation inhaler (Patient not taking: Reported on 02/21/2024) montelukast (SINGULAIR) 10 mg tablet lamoTRIgine (LAMICTAL) 200 mg tablet glucose 4 gram chewable tablet Take 3-4 tablets for hypoglycemia. Recheck blood sugar in 15 min after dose flash glucose scanning reader (FREESTYLE ANA PAULA 2 READER) 1 Each once daily. lidocaine (ANECREAM5) crea Apply to affected area as needed. albuterol HFA (VENTOLIN HFA) 90 mcg/actuation inhaler Inhale 2 Puffs as instructed every 4 hours asneeded for wheezing/shortness of breath. ipratropium-albuterol (DUONEB) 0.5 mg-3 mg(2.5 mg base)/3 mL nebu INHALE 3 ML INSTRUCTED EVERY 4HOURS NEEDED FAMILY HISTORY Problem Relation Age of Onset Heart Mother Hypertension Father Psychiatry Father Bipolar Psychiatry Sister No Known Problems Brother No Known Problems Maternal Grandmother Cancer Maternal Grandfather Diabetes Paternal Grandmother Stroke Paternal Grandmother Great Grandmother No Known Problems Paternal Grandfather Cancer Paternal Aunt other ([place]) Paternal Aunt Great aunt Colon Cancer No Family History Social History Tobacco Use Smoking status: Every Day Current packs/day: 0.50 Average packs/day: 0.5 packs/day for 31.8 years (15.9 ttl pk-yrs) Types: Cigarettes Start date: 05/17/1992 Smokeless tobacco: Never Tobacco comments: 02/2024 - down to 5 or 6 per day Vaping Use Vaping status: Never Used Substance Use Topics Alcohol use: Not Currently Comment: Seldom- uses once every couple months Drug use: Not Currently Comment: marijuana h/o, 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 PHYSICAL EXAM BP 130/76 Pulse 95 Resp 16 Wt (!) 146.5 kg (323 lb) LMP 07/09/2023 (Approximate) SpO2 95% BMI 57.22 kg/m General Appearance: well appearing, in no acute distress, alert Eyes: conjunctiva pink and moist, no icterus, sclera white, non-injected Lungs: Lungs clear to auscultation. No wheezing, rhonchi, rales. Heart: RRR without murmur, gallop, or rubs. No ectopy Health maintenance reviewed with patient: Depression Screening Never done BP Controlled (<130/80) Never done Mammogram Screening Never done Colorectal Cancer Screening due on 03/02/2022 DTaP,Tdap,Td Vaccine(2 - Td or Tdap) due on 05/31/2024 Hepatitis B Vaccine(1 of 3 - 19+ 3-dose series) due on 05/31/2024 Spirometry due on 05/31/2024 Cervical Cancer Screening due on 05/31/2024 Pneumococcal Vaccine(2 of 2 - PPSV23 or PCV20) due on 05/31/2024 Influenza Vaccine(1) due on 11/13/2024 Covid-19 Vaccine( - season) due on 02/01/2025 HbA1C due on 04/05/2024 LDL Cholesterol due on 10/03/2024 Annual PCP Team Chronic Disease Visit due on 02/16/2025 HIV Screening Completed HPV Vaccine Aged Out Urine Albumin:Creatinine Ratio Discontinued Dilated Retinal Exam Discontinued Diabetic Foot Exam Discontinued Hepatitis C Screening Discontinued DATA REVIEWED: No new labs ASSESSMENT/PLAN: 1. 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 EAMON (obstructive sleep apnea) - ICD9: 327.23, ICD10: G47.33 New supplies needed - CPAP DEVICE, WITH HUMIDIFIER 3. Uncontrolled asthma - ICD9: 493.90, ICD10: J45.909 Stable Continue current treatment and plans to establish with [facility] pulmonlogy Prescription instructions reviewed with patient as applicable. Potential red flag symptoms discussed with the patient. Reviewed appropriate action plan to take if red flag symptoms occur. Patient agreeable to treatment plan. Caryn Lowery APRN.CNP documented in this encounterSt. [facility]10-[facility] History of Present illness Narrative* Eusebia Hsu RT(R) - 02/29/2024 1:40 PM EDT Radiology Service Progress Note DATE OF SERVICE: February 29, 2024 TIME: 2:50 PM PATIENT IDENTITY VERIFICATION COMPLETED USING TWO (2) STANDARD IDENTIFIERS: Name and Date of confirmed by patient verbally. FALL SCREENING: Has the patient had 2 falls in the last year or 1 fall with injury or currently using an Ambulatory Assistive Device (Walker, Cane, Wheelchair, Crutches, etc.)? No PATIENT GENDER DATA: Female. status: : No status: NO. PATIENT RELEVANT IMPLANT DATA REVIEWED: Yes PATIENT PRESENTS WITH AN IMPLANTABLE OR ATTACHED ROVING FRAME TENDER: No ALLERGIES: Reviewed and unchanged CONTRAST ALLERGY: NO. EXAM: CT -CONTRAST INDUCED NEPHROPATHY RISK FACTORS: Not applicable CREATININE: Creatinine Date Value Ref Range Status 01/21/2024 0.71 0.58 - 0.96 mg/dL Final 01/03/2024 0.77 0.58 - 0.96 mg/dL Final 11/15/2023 0.73 0.58 - 0.96 mg/dL Final Estimated Glomerular Filtration Rate Date Value Ref Range Status 01/21/2024 106 >=60 mL/min/1.73m Final Comment: Estimated Glomerular Filtration Rate (eGFR) is calculated using the 2020 CKD-EPI creatinine equation. This equation utilizes serum creatinine, sex, and age as parameters. The creatinine assay has traceable calibration to isotope dilution- mass spectrometry. Refer to KDIGO guidelines for clinical interpretation. In patients with unstable renal function, e.g. those with acute kidney injury, the eGFRmay not accurately reflect actual GFR. eGFR- Date Value Ref Range Status 07/01/2021 >60 Final P.O.C.T. RESULTS: POC done: Yes, See Lab Tab February 29, 2024 TREATMENT: N/A PERIPHERAL IV DATA: Ambulatory: A peripheral IV was started in the Right antecubital site with a Angio cath: 22 gauge. RADIOLOGY DEPARTMENT: CT; Exam(s) Completed: Chest SIGNATURE: RT Cem(R) PATIENT NAME: Darren Reinoso DATE: February 29, 2024 TIME: 2:50 PM documented in this encounterSt. Anthony'[facility]10-15-[facility] Tele[facility] encounter Note* Telephone Encounter - Babar Phillip MD - 02/29/2024 1:00 PM EDT I agree, once pulmonary is following with her for lung issues, I would advice that she direct all queries and concerns to them RegardsBabar MD [facility]10-[facility]-2024 Miscellaneous Notes* Telephone Encounter - Babar Phillip MD - 02/29/2024 1:00 PM EDT I agree, once pulmonary is following with her for lung issues, I would advice that she direct all queries and concerns to them RegardsBabar MD * Telephone Encounter - Silviano Root RN - 02/29/2024 11:32 AM EDT Faxed respiratory cx and blood results to [facility], per patient request. . Patient asking why she is being treated for aspergillus, when the blood cx is negative. [facility] is prescribing the medication. Patient will call them to ask them to look at the results again, and tell her if she should be taking the medication. documented in this encounterSt. Anthony'[facility]10-15-2024 Telephone encounter Note * Telephone Encounter - Silviano Root RN - 02/29/2024 11:32 AM EDT Faxed respiratory cx and blood results to [facility], per patient request. . Patient asking why she is being treated for aspergillus, when the blood cx is negative. [facility] is prescribing the medication. Patient will call them to ask them to look at the results again, and tell her if she should be taking the medication. [facility] Telephone encounter Note* Telephone Encounter - Tarah Haider LPN - 02/28/2024 3:40 PM EDT Spoke with pt and information listed below given. Pt verbalizes understanding. Pt has an apt with infectious Disease on Wednesday03/01/24 at 2 PM. She was not certain what the doctors name was. Tarah Haider LPN [facility]10-14-2024 Miscellaneous Notes* Telephone Encounter - Tarah Haider LPN - 02/28/2024 3:40 PM EDT Spoke with pt and information listed below given. Pt verbalizes understanding. Pt has an apt with infectious Disease on Wednesday03/01/24 at 2 PM. She was not certain what the doctors name was. Tarah Haider LPN * Telephone Encounter - Caryn Lowery APRN.ICT SUPPORT ENGINEER - 02/28/2024 10:53 AM EDT This is an appropriate treatment medication. Is she seeing Infectious disease as ordered by the pulmonology group? Take care Caryn Lowery APRN.CNP * Telephone Encounter - Silviano Root RN - 02/28/2024 10:17 AM EDT Patient asking pcp to review and advise on recent lab results. Reports Coco Regalado, in Pulm at [facility], prescribed her voriconazole 200 mg q12 hours, on empty stomach, for aspergillus. Reports she has been taking it for 2 days. Asking if this is the right medication? Please advise patient: [phone] documented in this encounterSt. [facility]10-14-2024 Telephone encounter Note * Telephone Encounter - Caryn Lowery APRN.CNP - 02/28/2024 10:53 AM EDT This is an appropriate treatment medication. Is she seeing Infectious disease as ordered by the pulmonology group? Take care Caryn Lowery APRN.CNP [facility]24 Telephone encounter Note* Telephone Encounter - Silviano Root RN - 02/28/2024 10:17 AM EDT Patient asking pcp to review and advise on recent lab results. Reports Coco Regalado, in Pulm at [facility], prescribed her voriconazole 200 mg q12 hours, on empty stomach, for aspergillus. Reports she has been taking it for 2 days. Asking if this is the right medication? Please advise patient: [phone] [facility] Telephone encounter Note* Telephone Encounter - Marita Gonzalez RN - 02/25/2024 2:57 PM EDT Yas with [facility] calls to request refill of Trulicity. Order currently says on hold from 02/21/2024. Notified [facility]. Marita Gonzalez RN [facility]10-11-2024 Miscellaneous Notes* Telephone Encounter - Marita Gonzalez RN - 02/25/2024 2:57 PM EDT Yas with [facility] calls to request refill of Trulicity. Order currently says on hold from 02/21/2024. Notified [facility]. Marita Gnozalez RN documented in this encounterSt. Anthony'[facility]10-11-2024 Telephone encounter Note * Telephone Encounter - Chaparrita Paez RN - 02/25/2024 12:04 PM EDT Pt called and is notified of providers message and instructions. Pt voices understanding. She states she will be in today to get them done. Pt states she finally got in to see Pulmonary at [facility] today at 1015. She reports she was put on an antifungal for aspergillus, and has an order to see infectious disease. She said she is still waiting to get a call from them. Chaparrita Paez RN [facility]10-11-2024 Miscellaneous Notes* Telephone Encounter - Chaparrita Paez RN - 02/25/2024 12:04 PM EDT Pt called and is notified of providers message and instructions. Pt voices understanding. She states she will be in today to get them done. Pt states she finally got in to see Pulmonary at [facility] today at 1015. She reports she was put on an antifungal for aspergillus, and has an order to see infectious disease. She said she is still waiting to get a call from them. Chaparrita Paez, RN * Telephone Encounter - Babar Phillip MD - 02/25/2024 11:14 AM EDT I have ordered labs for the patient. Please get that done victorinoBabar Hartman MD documented in this encounterSt. [facility]10-11-2024 Telephone encounter Note * Telephone Encounter - Babar Phillip MD - 02/25/2024 11:14 AM EDT I have ordered labs for the patient. Please get that done [facility] Babar Medeiros MD [facility]10-11-2024 Telephone encounter Note* Telephone Encounter - Silviano Root RN - 02/25/2024 10:54 AM EDT Faxed respiratory culture results to [facility], per patient request. [facility] Miscellaneous Notes* Telephone Encounter - Silviano Root RN - 02/25/2024 10:54 AM EDT Faxed respiratory culture results to [facility], per patient request. documented in this encounterSt. Anthony'S [facility]10-07-2024 Note[facility]10-07-[facility] History of Present illness Narrative* Duran Blunt MD - 02/21/2024 2:31 PM EDT Duran Blunt MD Department of Orthopaedics Orthopaedics [address] [place] [id number] Dept: [phone] Dept February 21, 2024 CHIEF COMPLAINT: Established Patient and Numbness of the Left Hand and Established Patient and Numbness of the Right Hand HPI She's been dealing with numbness and tingling in both pinkies. Pain and achiness in the elbow. 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 I'd probably like to get her a nerve test to help determineperipheral vs. Cervical. OBJECTIVE: Ms. Darren Reinoso is a pleasant 44 year old in no apparent distress. Gen:LMP 07/09/2023 nl development, severely obses , no deformities ENT: Normocephalic, normal hearing, moist mucosa CV: Pulses:Radial= 2+ and symmetric, capillary refill < 2 secs, no peripheral edema/varicosities Skin: no rash, bruising or lesions. Good turgor. Psych: cooperative and appropriate, alert and oriented x 3, good mood and affect. Musculoskeletal: Cervical spine has mild limited range of motion and no tenderness to palpation, Spurling's sign equivocal. Shoulders and elbows have full range of motion. positive Tinel's over the cubital tunnel, nosubluxation of ulnar nerve at the elbow with flexion, bilaterally. neg Tinel's over Guyon's canal. Inspection reveals no thenar atrophy. intact sensation to light touch in the radial 3 digits. Sensation diminished in the ulnar 2 digits with out intrinsic atrophy/weakness, each side. Prior carpal tunnel scars. Neg. Tinel's at the wrist, neg carpal tunnel compression testing on the right and left. No locking or catching of the digits. No tenderness to palpation or masses noted in the forearm or hand. Imaging: Deferred today. Supporting Subjective Information Below: Past Surgical History: PAST SURGICAL HISTORY Procedure Laterality Date COLONOSCOPY FLX DX W/COLLJ SPEC WHEN PFRMD 03/02/2017 Colonoscopy HEMORRHOIDECTOMY INCISE FINGER TENDON SHEATH Right 2002 INCISE FINGER TENDON SHEATH Right 07/23/2021 Right thumb and middle trigger finger releases LAPS ABD PRTM&OMENTUM DX W/WO SPEC BR/WA SPX Laparoscopy, diagnostic LIG/TRNSXJ FLP TUBE ABDL/VAG APPR UNI/BI Tubal ligation OVARIAN CYSTECTOMY 1990 ovarian cysts removed PAST SURGICAL HISTORY OF 1999 ORIF left ankle PAST SURGICAL HISTORY OF right middle finger surgery, staph debridment. PAST SURGICAL HISTORY OF 07/28/2013 left carpal tunnel release RECTAL EXAM UNDER ANESTHESIA 2014 [facility] MEDIAN N/CARPAL TUNNEL SURG 06/08/2014 right capral tunnel release TNOT ELBOW LATERAL/MEDIAL DEBRIDE OPEN Right 04/02/2017 Right elbow extensor tendon debridement TNOT ELBOW LATERAL/MEDIAL DEBRIDE OPEN Left 05/18/2018 Left elbow extensor tendon debridement TONSILLECTOMY PRIMARY/SECONDARY <AGE 12 Tonsillectomy Medications: Current Outpatient Medications Medication Sig predniSONE (DELTASONE) 10 mg tablet Take 4 tabs daily for 3 days, then 2 tabs daily for 3 days, then 1 tab daily for 3 days with food. cetirizine (ZYRTEC) 10 mg tablet Take 1 tablet by mouth once daily. metoprolol tartrate, short acting, (LOPRESSOR) 25 mg tablet Take 1 tablet by mouth two times a day. albuterol (PROVENTIL) 2.5 mg /3 mL (0.083 %) nebulizer solution Use 3 mL via nebulizer every 4 hours as needed for wheezing/shortness of breath. Use over 5-15minutes. tiZANidine (ZANAFLEX) 4 mg tablet Take 1 tablet by mouth every 8 hours as needed. omeprazole (PRILOSEC) 40 mg capsule TAKE 1 CAPSULE BY MOUTH DAILY 1/2 HOUR BEFORE BREAKFAST furosemide (LASIX) 40 mg tablet Take 1 tablet by mouth once daily. levothyroxine (SYNTHROID) 50 mcg tablet TAKE 1 TABLET BY MOUTH DAILY TAKE ON EMPTY STOMACH. FOR THYROID potassium chloride (K-TAB) 10 mEq tablet Take 1 tablet by mouth daily with breakfast. Take with lasix famotidine (PEPCID) 20 mg tablet Take 1 tablet by mouth daily at bedtime. diclofenac (VOLTAREN) 1 % topical gel Apply 2 g to affected area twice daily as needed. fluticasone (FLONASE) 50 mcg/actuation nasal spray Use 2 Sprays in each nostril once daily. Rinse mouth after use. montelukast (SINGULAIR) 10 mg tablet lamoTRIgine (LAMICTAL) 200 mg tablet lidocaine (ANECREAM5) crea Apply to affected area as needed. albuterol HFA (VENTOLIN HFA) 90 mcg/actuation inhaler Inhale 2 Puffs as instructed every 4 hours asneeded for wheezing/shortness of breath. atorvastatin (LIPITOR) 10 mg tablet Take 1 tablet by mouth once daily. (Patient not taking: Reported on 02/21/2024) ibuprofen (MOTRIN) 600 mg tablet Take 1 tablet by mouth every 8 hours as needed for pain. Nebulizer Accessories kit 1 Each every 4 hours as needed (wheezing or shortness of breath). ondansetron orally disintegrating (ZOFRAN ODT) 4 mg disintegrating tablet Take 1 tablet by mouth every 6 hours as needed for nausea/vomiting. (Patient not taking: Reported on 02/21/2024) flash glucose sensor (Worldco[employer] ANA PAULA 2 SENSOR) kit USE TO CHECK BLOOD SUGAR DAILY dulaglutide (TRULICITY) 0.75 mg/0.5 mL pen injector Inject 0.75 mg subcutaneously one time a week. Inject dose once per week. Discard Pen After Blood Pressure Monitor 1 Each as directed. Dispense with Extra Large Cuff Blood Pressure Kit-Extra Large kit 1 Each once daily. lancets (UNILET SUPER THIN LANCETS) 30 gauge Test blood sugar(s) 4 times daily. blood sugar diagnostic (TRUE METRIX GLUCOSE TEST STRIP) test strip Test blood sugar(s) 4 times daily. hydrOXYzine HCl (ATARAX) 25 mg tablet Take 1 tablet by mouth at bedtime as needed for anxiety. (Patient not taking: Reported on 02/21/2024) promethazine (PHENERGAN) 25 mg tablet Take 1 tablet by mouth every 8 hours as needed. (Patient not taking: Reported on 02/21/2024) TRUE METRIX GLUCOSE METER test blood sugar DIRECTED SYMBICORT 160-4.5 mcg/actuation inhaler (Patient not taking: Reported on 02/21/2024) glucose 4 gram chewable tablet Take 3-4 tablets for hypoglycemia. Recheck blood sugar in 15 min after dose flash glucose scanning reader (Superconductor TechnologiesSTYLE ANA PAULA 2 READER) 1 Each once daily. ipratropium-albuterol (DUONEB) 0.5 mg-3 mg(2.5 mg base)/3 mL nebu INHALE 3 ML INSTRUCTED EVERY 4HOURS NEEDED No current facility-administered medications for this visit. Allergies: Amoxicillin, Codeine, Darvocet A500 [Propoxyphene N-Acetaminophen], Propoxyphene, and Sulfa (Sulfonamide Antibiotics) ROS: General (negative for fatigue, malaise, weight loss/gain) HEENT (negative for headache, earache, recent vision changes, sinus pain, sore throat) Respiratory (no recent shortness of breath, hemoptysis) CV (negative for chest tightness, palpitations) Musculoskeletal (see HPI) Psych (no depression, anxiety) Duran Blunt MD documented in this encounterSt. [facility]10-03-2024 Note[facility]10-03-[facility] History of Present illness Narrative* Caryn Lowery APRN.ICT SUPPORT ENGINEER - 02/17/2024 1:48 PM EDT CC: Patient presents with: Chest Congestion: Chest congestion, SOB HPI Darren Reinoso is a 44 year old female who presents today for respiratory concerns. Has been treated over the last few months has been on z-pack, augmentin, and most recently levaquin. Last prednisone was weeks ago and was a small burst. Continues with her asthma medication, montelukast, flonase, and zyrtec with no improvement. Cxr has been completed numerous times and normal. CT of chest was 6 weeks ago and was negative for PE but indicated infection. Has had moments of starting to feel better but then goes back to feeling terrible. Still with shortness of breath on exertion and states her oxygen level will drop in the 80s with exertion. Has oxygen at home but not using. Has decreased to 6 cigarettes a day. Using 3 breathing treatments daily. Reports still with coughing, wheezing, fatigue and nasal congestion. Has continued to call her pulmonology group at [facility] but not getting an appointment. Denies chest pain, edema, palpitations, fever, or chills. REVIEW OF SYSTEMS See HPI PAST MEDICAL HISTORY Diagnosis Date Adjustment disorder with depressed mood Anxiety state, unspecified Dysmenorrhea Hearing loss no aids Other and unspecified ovarian cyst Ovarian cyst RECOVERING ALCOHOL, MARIJUANA & COCAINE PAST SURGICAL HISTORY Procedure Laterality Date COLONOSCOPY FLX DX W/COLLJ SPEC WHEN PFRMD 03/02/2017 Colonoscopy HEMORRHOIDECTOMY INCISE FINGER TENDON SHEATH Right 2003 INCISE FINGER TENDON SHEATH Right 07/23/2021 Right thumb and middle trigger finger releases LAPS ABD PRTM&OMENTUM DX W/WO SPEC BR/WA SPX Laparoscopy, diagnostic LIG/TRNSXJ FLP TUBE ABDL/VAG APPR UNI/BI Tubal ligation OVARIAN CYSTECTOMY 1990 ovarian cysts removed PAST SURGICAL HISTORY OF 1999 ORIF left ankle PAST SURGICAL HISTORY OF right middle finger surgery, staph debridment. PAST SURGICAL HISTORY OF 07/28/2013 left carpal tunnel release RECTAL EXAM UNDER ANESTHESIA 2014 [facility] MEDIAN N/CARPAL TUNNEL SURG 06/08/2014 right capral tunnel release TNOT ELBOW LATERAL/MEDIAL DEBRIDE OPEN Right 04/02/2017 Right elbow extensor tendon debridement TNOT ELBOW LATERAL/MEDIAL DEBRIDE OPEN Left 05/18/2018 Left elbow extensor tendon debridement TONSILLECTOMY PRIMARY/SECONDARY <AGE 12 Tonsillectomy ALLERGIES Amoxicillin, Codeine, Darvocet A500 [Propoxyphene N-Acetaminophen], Propoxyphene, and Sulfa (Sulfonamide Antibiotics) MEDICATIONS atorvastatin (LIPITOR) 10 mg tablet Take 1 tablet by mouth once daily. cetirizine (ZYRTEC) 10 mg tablet Take 1 tablet by mouth once daily. metoprolol tartrate, short acting, (LOPRESSOR) 25 mg tablet Take 1 tablet by mouth two times a day. predniSONE (DELTASONE) 20 mg tablet Take 2 tablets by mouth once daily. ibuprofen (MOTRIN) 600 mg tablet Take 1 tablet by mouth every 8 hours as needed for pain. Nebulizer Accessories kit 1 Each every 4 hours as needed (wheezing or shortness of breath). albuterol (PROVENTIL) 2.5 mg /3 mL (0.083 %) nebulizer solution Use 3 mL via nebulizer every 4 hours as needed for wheezing/shortness of breath. Use over 5-15minutes. tiZANidine (ZANAFLEX) 4 mg tablet Take 1 tablet by mouth every 8 hours as needed. ondansetron orally disintegrating (ZOFRAN ODT) 4 mg disintegrating tablet Take 1 tablet by mouth every 6 hours as needed for nausea/vomiting. flash glucose sensor (FREESTYLE ANA PAULA 2 SENSOR) kit USE TO CHECK BLOOD SUGAR DAILY omeprazole (PRILOSEC) 40 mg capsule TAKE 1 CAPSULE BY MOUTH DAILY 1/2 HOUR BEFORE BREAKFAST dulaglutide (TRULICITY) 0.75 mg/0.5 mL pen injector Inject 0.75 mg subcutaneously one time a week. Inject dose once per week. Discard Pen After furosemide (LASIX) 40 mg tablet Take 1 tablet by mouth once daily. levothyroxine (SYNTHROID) 50 mcg tablet TAKE 1 TABLET BY MOUTH DAILY TAKE ON EMPTY STOMACH. FOR THYROID Blood Pressure Monitor 1 Each as directed. Dispense with Extra Large Cuff Blood Pressure Kit-Extra Large kit 1 Each once daily. lancets (UNILET SUPER THIN LANCETS) 30 gauge Test blood sugar(s) 4 times daily. blood sugar diagnostic (TRUE METRIX GLUCOSE TEST STRIP) test strip Test blood sugar(s) 4 times daily. potassium chloride (K-TAB) 10 mEq tablet Take 1 tablet by mouth daily with breakfast. Take with lasix famotidine (PEPCID) 20 mg tablet Take 1 tablet by mouth daily at bedtime. hydrOXYzine HCl (ATARAX) 25 mg tablet Take 1 tablet by mouth at bedtime as needed for anxiety. diclofenac (VOLTAREN) 1 % topical gel Apply 2 g to affected area twice daily as needed. fluticasone (FLONASE) 50 mcg/actuation nasal spray Use 2 Sprays in each nostril once daily. Rinse mouth after use. promethazine (PHENERGAN) 25 mg tablet Take 1 tablet by mouth every 8 hours as needed. TRUE METRIX GLUCOSE METER test blood sugar DIRECTED SYMBICORT 160-4.5 mcg/actuation inhaler montelukast (SINGULAIR) 10 mg tablet lamoTRIgine (LAMICTAL) 200 mg tablet glucose 4 gram chewable tablet Take 3-4 tablets for hypoglycemia. Recheck blood sugar in 15 min after dose flash glucose scanning reader (FREESTYLE ANA PAULA 2 READER) 1 Each once daily. lidocaine (ANECREAM5) crea Apply to affected area as needed. albuterol HFA (VENTOLIN HFA) 90 mcg/actuation inhaler Inhale 2 Puffs as instructed every 4 hours asneeded for wheezing/shortness of breath. ipratropium-albuterol (DUONEB) 0.5 mg-3 mg(2.5 mg base)/3 mL nebu INHALE 3 ML INSTRUCTED EVERY 4HOURS NEEDED FAMILY HISTORY Problem Relation Age of Onset Heart Mother Hypertension Father Psychiatry Father Bipolar Psychiatry Sister No Known Problems Brother No Known Problems Maternal Grandmother Cancer Maternal Grandfather Diabetes Paternal Grandmother Stroke Paternal Grandmother Great Grandmother No Known Problems Paternal Grandfather Cancer Paternal Aunt other ([place]) Paternal Aunt Great aunt Colon Cancer No Family History Social History Tobacco Use Smoking status: Every Day Current packs/day: 0.50 Average packs/day: 0.5 packs/day for 31.8 years (15.9 ttl pk-yrs) Types: Cigarettes Start date: 05/17/1992 Smokeless tobacco: Never Vaping Use Vaping status: Never Used Substance Use Topics Alcohol use: Not Currently Comment: Seldom- uses once every couple months Drug use: Not Currently Comment: marijuana h/o, 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 PHYSICAL EXAM BP 128/80 Pulse 88 Resp 16 Wt (!) 147 kg (324 lb) LMP 07/09/2023 (Approximate) SpO2 97% BMI 57.39 kg/m General Appearance: ill and tired appearing, in no acute distress, alert Eyes: conjunctiva pink and moist, no icterus, sclera white, non-injected Nose/sinus: Nares normal. Septum midline. Mucosa normal. No drainage., No sinus tenderness Neck: Thyroid normal size and symmetric without palpable nodules, Neck supple, No adenopathy Lymph nodes: No cervical lymphadenopathy and No supraclavicular lymphadenopathy Lungs: inspiratory and expiratory wheezes throughout bilaterally. Heart: RRR without murmur, gallop, or rubs. No ectopy Health maintenance reviewed with patient: Depression Screening Never done Mammogram Screening Never done Colorectal Cancer Screening due on 03/02/2022 DTaP,Tdap,Td Vaccine(2 - Td or Tdap) due on 05/31/2024 Hepatitis B Vaccine(1 of 3 - 19+ 3-dose series) due on 05/31/2024 Spirometry due on 05/31/2024 Cervical Cancer Screening due on 05/31/2024 Pneumococcal Vaccine(2 of 2 - PPSV23 or PCV20) due on 05/31/2024 Influenza Vaccine(1) due on 11/13/2024 Covid-19 Vaccine( - season) due on 02/01/2025 HbA1C due on 04/05/2024 LDL Cholesterol due on 10/03/2024 Annual PCP Team Chronic Disease Visit due on 02/01/2025 BP Controlled (<130/80) due on 02/01/2025 HIV Screening Completed HPV Vaccine Aged Out Urine Albumin:Creatinine Ratio Discontinued Dilated Retinal Exam Discontinued Diabetic Foot Exam Discontinued Hepatitis C Screening Discontinued DATA REVIEWED: Most recent labs and imaging results. ASSESSMENT/PLAN: 1. Shortness of breath - ICD9: 786.05, ICD10: R06.02 (primary diagnosis) - continues even after multiple treatments - will get her in with new composite bond technician, refill prednisone and await other treatment until. Sputum culture and chest ct completed. - go to ER for any increase in shortness of breath, chest pain, fever, lethargy or inability to maintain O2 sats greater then 92% - start using home O2 @ 2L on exertion and/or when o2 sat is less then 92% (walking pulse ox in office with lowest of 90%) - PREDNISONE 10 MG TABLET - CONSULT TO PULMONARY MEDICINE - RESPIRATORY CULTURE AND STAIN - CT CHEST W IVCON - IV CONTRAST (RADIOLOGY PROCEDURE) - follow up depends on results 2. Cough, unspecified type - ICD9: 786.2, ICD10: R05.9 As above - PREDNISONE 10 MG TABLET - CONSULT TO PULMONARY MEDICINE - RESPIRATORY CULTURE AND STAIN - CT CHEST W IVCON - IV CONTRAST (RADIOLOGY PROCEDURE) 3. Wheezing - ICD9: 786.07, ICD10: R06.2 See #1 - PREDNISONE 10 MG TABLET - CONSULT TO PULMONARY MEDICINE - RESPIRATORY CULTURE AND STAIN - CT CHEST W IVCON - IV CONTRAST (RADIOLOGY PROCEDURE) 4. Low O2 saturation - ICD9: 790.91, ICD10: R79.81 See #1 - PREDNISONE 10 MG TABLET - CONSULT TO PULMONARY MEDICINE - RESPIRATORY CULTURE AND STAIN - CT CHEST W IVCON - IV CONTRAST (RADIOLOGY PROCEDURE) 5. Mild intermittent asthma with acute exacerbation - ICD9: 493.92, ICD10: J45.21 See #1 - CONSULT TO PULMONARY MEDICINE Prescription instructions reviewed with patient as applicable. Potential red flag symptoms discussed with the patient. Reviewed appropriate action plan to take if red flag symptoms occur. Patient agreeable to treatment plan. Caryn Lowery APRN.CNP documented in this encounterSt. [facility] Telephone encounter Note * Telephone Encounter - Tete Gonzalez RN - 02/16/2024 2:06 PM EDT The patient has been identified by name and date of : Yes Caregiver verified no other encounters exist for this prescription request: Yes Caregiver confirmed with patient/requestor that no other refills are due, in the near future, with this provider at this time: Yes The last office visit in the department: 02/02/2024 Does the patient have a future office visit with this provider/department: Yes 03/15/2024 Requested Prescriptions Pending Prescriptions Disp Refills atorvastatin (LIPITOR) 10 mg tablet 90 tablet 3 Sig: Take 1 tablet by mouth once daily. cetirizine (ZYRTEC) 10 mg tablet 30 tablet 5 Sig: Take 1 tablet by mouth once daily. metoprolol tartrate, short acting, (LOPRESSOR) 25 mg tablet 60 tablet 5 Sig: Take 1 tablet by mouth two times a day. Tete Gonzalez RN [facility]10-[facility] Miscellaneous Notes* Telephone Encounter - Tete Gonzalez RN - 02/16/2024 2:06 PM EDT The patient has been identified by name and date of : Yes Caregiver verified no other encounters exist for this prescription request: Yes Caregiver confirmed with patient/requestor that no other refills are due, in the near future, with this provider at this time: Yes The last office visit in the department: 02/02/2024 Does the patient have a future office visit with this provider/department: Yes 03/15/2024 Requested Prescriptions Pending Prescriptions Disp Refills atorvastatin (LIPITOR) 10 mg tablet 90 tablet 3 Sig: Take 1 tablet by mouth once daily. cetirizine (ZYRTEC) 10 mg tablet 30 tablet 5 Sig: Take 1 tablet by mouth once daily. metoprolol tartrate, short acting, (LOPRESSOR) 25 mg tablet 60 tablet 5 Sig: Take 1 tablet by mouth two times a day. Tete Gonzalez RN documented in this encounterSt. [facility]09-20-2024 History of Present illness Narrative* Ana Gunderosn RT(R) - 02/04/2024 2:50 PM EDT Radiology Service Progress Note PATIENT NAME: Darren Reinoso DATE OF SERVICE: February 04, 2024 TIME: 2:53 PM PATIENT IDENTITY VERIFICATION COMPLETED USING TWO (2) IDENTIFIERS: Name and Date of confirmedby patient verbally. FALL SCREENING: Has the patient had 2 falls in the last year or 1 fall with injury or currently using an Ambulatory Assistive Device (Walker, Cane, Wheelchair, Crutches, etc.)? No PATIENT GENDER DATA: Female. status: : No status: NO. PATIENT RELEVANT IMPLANT DATA REVIEWED: Not Applicable PATIENT PRESENTS WITH AN IMPLANTABLE OR ATTACHED ROVING FRAME TENDER: No RADIOLOGY DEPARTMENT: General X-ray: Exam(s) Completed: Chest X-Ray PERIPHERAL IV DATA: Not applicable SIGNED BY: RT Luis(R) February 04, 2024 2:53 PM documented in this encounterSt. [facility]09-20-[facility] History of Present illness Narrative* Caryn Lowery APRN.CNP - 02/02/2024 12:25 PM EDT CC: Patient presents with: 4 week follow up HPI Darren Reinoso is a 44 year old female who presents today for follow up on recurrent respiratory illness. Was first seen for this originally 01/03/24 with right sided chest pain and shortness of breath. Cxrnegative, Positive d-dimer so patient went to ER with chest ct negative for PE but indicated infection. Was started on prednisone and doxycycline by her composite bond technician that she sees for her asthma. Was 01/12 in office still feeling ill. Started on azithromycin and prednisone stopped due to anger issues. Was to follow up with pulmonology group but per patient was told they wanted her to see PCP for this and did not need to see her. Next seen 01/21/24ill with symptoms so placed back on prednisone and augmentin added. CXR performed and negative. All symptoms resolved except shortness of breath. Returns today feeling miserable which started 4 days ago. Took covid test 2 nights ago. Currently with fatigue, cough, wheezing, shortness of breath, fever of 100, sinus drainage, ear pain, body aches, headaches, sore throat, Denies chills, ear drainage, syncope, dizziness, edema, chest pressure, palpitations, or N/V/D. Had messaged 2 days ago indicating original infection was continuing so levaquin ordered. Started as ordered but no improvement yet. Has started salt water gargling, nasal lavage, and naproxen which has helped small amount. REVIEW OF SYSTEMS See HPI PAST MEDICAL HISTORY Diagnosis Date Adjustment disorder with depressed mood Anxiety state, unspecified Dysmenorrhea Hearing loss no aids Other and unspecified ovarian cyst Ovarian cyst RECOVERING ALCOHOL, MARIJUANA & COCAINE PAST SURGICAL HISTORY Procedure Laterality Date COLONOSCOPY FLX DX W/COLLJ SPEC WHEN PFRMD 03/02/2017 Colonoscopy HEMORRHOIDECTOMY INCISE FINGER TENDON SHEATH Right 2002 INCISE FINGER TENDON SHEATH Right 07/23/2021 Right thumb and middle trigger finger releases LAPS ABD PRTM&OMENTUM DX W/WO SPEC BR/WA SPX Laparoscopy, diagnostic LIG/TRNSXJ FLP TUBE ABDL/VAG APPR UNI/BI Tubal ligation OVARIAN CYSTECTOMY 1990 ovarian cysts removed PAST SURGICAL HISTORY OF 1999 ORIF left ankle PAST SURGICAL HISTORY OF right middle finger surgery, staph debridment. PAST SURGICAL HISTORY OF 07/28/2013 left carpal tunnel release RECTAL EXAM UNDER ANESTHESIA 2014 [facility] N/CARPAL TUNNEL SURG 06/08/2014 right capral tunnel release TNOT ELBOW LATERAL/MEDIAL DEBRIDE OPEN Right 04/02/2017 Right elbow extensor tendon debridement TNOT ELBOW LATERAL/MEDIAL DEBRIDE OPEN Left 05/18/2018 Left elbow extensor tendon debridement TONSILLECTOMY PRIMARY/SECONDARY <AGE 12 Tonsillectomy ALLERGIES Amoxicillin, Codeine, Darvocet A500 [Propoxyphene N-Acetaminophen], Propoxyphene, and Sulfa (Sulfonamide Antibiotics) MEDICATIONS levoFLOXacin (LEVAQUIN) 750 mg tablet Take 1 tablet by mouth once daily for 5 days. ibuprofen (MOTRIN) 600 mg tablet Take 1 tablet by mouth every 8 hours as needed for pain. Nebulizer Accessories kit 1 Each every 4 hours as needed (wheezing or shortness of breath). albuterol (PROVENTIL) 2.5 mg /3 mL (0.083 %) nebulizer solution Use 3 mL via nebulizer every 4 hours as needed for wheezing/shortness of breath. Use over 5-15minutes. tiZANidine (ZANAFLEX) 4 mg tablet Take 1 tablet by mouth every 8 hours as needed. ondansetron orally disintegrating (ZOFRAN ODT) 4 mg disintegrating tablet Take 1 tablet by mouth every 6 hours as needed for nausea/vomiting. flash glucose sensor (FREESTYLE ANA PAULA 2 SENSOR) kit USE TO CHECK BLOOD SUGAR DAILY omeprazole (PRILOSEC) 40 mg capsule TAKE 1 CAPSULE BY MOUTH DAILY 1/2 HOUR BEFORE BREAKFAST dulaglutide (TRULICITY) 0.75 mg/0.5 mL pen injector Inject 0.75 mg subcutaneously one time a week. Inject dose once per week. Discard Pen After furosemide (LASIX) 40 mg tablet Take 1 tablet by mouth once daily. levothyroxine (SYNTHROID) 50 mcg tablet TAKE 1 TABLET BY MOUTH DAILY TAKE ON EMPTY STOMACH. FOR THYROID cetirizine (ZYRTEC) 10 mg tablet Take 1 tablet by mouth once daily. metoprolol tartrate, short acting, (LOPRESSOR) 25 mg tablet Take 1 tablet by mouth two times a day. Blood Pressure Monitor 1 Each as directed. Dispense with Extra Large Cuff Blood Pressure Kit-Extra Large kit 1 Each once daily. lancets (UNILET SUPER THIN LANCETS) 30 gauge Test blood sugar(s) 4 times daily. blood sugar diagnostic (TRUE METRIX GLUCOSE TEST STRIP) test strip Test blood sugar(s) 4 times daily. potassium chloride (K-TAB) 10 mEq tablet Take 1 tablet by mouth daily with breakfast. Take with lasix famotidine (PEPCID) 20 mg tablet Take 1 tablet by mouth daily at bedtime. atorvastatin (LIPITOR) 10 mg tablet Take 1 tablet by mouth once daily. hydrOXYzine HCl (ATARAX) 25 mg tablet Take 1 tablet by mouth at bedtime as needed for anxiety. diclofenac (VOLTAREN) 1 % topical gel Apply 2 g to affected area twice daily as needed. fluticasone (FLONASE) 50 mcg/actuation nasal spray Use 2 Sprays in each nostril once daily. Rinse mouth after use. promethazine (PHENERGAN) 25 mg tablet Take 1 tablet by mouth every 8 hours as needed. TRUE METRIX GLUCOSE METER test blood sugar DIRECTED SYMBICORT 160-4.5 mcg/actuation inhaler montelukast (SINGULAIR) 10 mg tablet lamoTRIgine (LAMICTAL) 200 mg tablet glucose 4 gram chewable tablet Take 3-4 tablets for hypoglycemia. Recheck blood sugar in 15 min after dose flash glucose scanning reader ([employer] ANA PAULA 2 READER) 1 Each once daily. lidocaine (ANECREAM5) crea Apply to affected area as needed. albuterol HFA (VENTOLIN HFA) 90 mcg/actuation inhaler Inhale 2 Puffs as instructed every 4 hours asneeded for wheezing/shortness of breath. ipratropium-albuterol (DUONEB) 0.5 mg-3 mg(2.5 mg base)/3 mL nebu INHALE 3 ML INSTRUCTED EVERY 4HOURS NEEDED FAMILY HISTORY Problem Relation Age of Onset Heart Mother Hypertension Father Psychiatry Father Bipolar Psychiatry Sister No Known Problems Brother No Known Problems Maternal Grandmother Cancer Maternal Grandfather Diabetes Paternal Grandmother Stroke Paternal Grandmother Great Grandmother No Known Problems Paternal Grandfather Cancer Paternal Aunt other ([place]) Paternal Aunt Great aunt Colon Cancer No Family History Social History Tobacco Use Smoking status: Every Day Current packs/day: 0.50 Average packs/day: 0.5 packs/day for 31.7 years (15.9 ttl pk-yrs) Types: Cigarettes Start date: 05/17/1992 Smokeless tobacco: Never Vaping Use Vaping status: Never Used Substance Use Topics Alcohol use: Not Currently Comment: Seldom- uses once every couple months Drug use: Not Currently Comment: marijuana h/o, 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 PHYSICAL EXAM BP 126/78 Pulse 74 Temp 36.4 C (97.6 F) (Temporal) Resp 24 Wt (!) 146.1 kg (322 lb) LMP 07/09/2023 (Approximate) SpO2 95% BMI 57.04 kg/m General Appearance: ill and tired appearing, in no acute distress, alert Pysch: mood and affect broad and appropriate Eyes: conjunctiva pink and moist, no icterus, sclera white, non-injected Ears: external ears normal to inspection and palpation, canals clear, Right tympanic membrane normal, Left TM normal Nose/sinus: Nares normal. Septum midline. Mucosa normal. No drainage., No sinus tenderness Neck: Thyroid normal size and symmetric without palpable nodules, Neck supple, No adenopathy Oropharynx: tongue midline and normal, soft palate, uvula, and tonsils normal, palpation of salivary glands negative Lymph nodes: No cervical lymphadenopathy and No supraclavicular lymphadenopathy Lungs: expiratory wheezing throughout bilaterally. No rales or rhonchi noted. Heart: RRR without murmur, gallop, or rubs. No ectopy Health maintenance reviewed with patient: Depression Screening Never done BP Controlled (<130/80) Never done Mammogram Screening Never done Colorectal Cancer Screening due on 03/02/2022 Covid-19 Vaccine( - 2022- season) Never done Influenza Vaccine(1) due on 01/16/2024 DTaP,Tdap,Td Vaccine(2 - Td or Tdap) due on 05/31/2024 Hepatitis B Vaccine(1 of 3 - 19+ 3-dose series) due on 05/31/2024 Spirometry due on 05/31/2024 Cervical Cancer Screening due on 05/31/2024 Pneumococcal Vaccine(2 of 2 - PPSV23 or PCV20) due on 05/31/2024 HbA1C due on 04/05/2024 LDL Cholesterol due on 10/03/2024 Annual PCP Team Chronic Disease Visit due on 01/20/2025 HIV Screening Completed HPV Vaccine Aged Out Urine Albumin:Creatinine Ratio Discontinued Dilated Retinal Exam Discontinued Diabetic Foot Exam Discontinued Hepatitis C Screening Discontinued DATA REVIEWED: Most recent labs and imaging results. ASSESSMENT/PLAN: 1. Shortness of breath - ICD9: 786.05, ICD10: R06.02 (primary diagnosis) Prednisone burst as ordered Go to ER for any worsening symptoms Finish levaquin as ordered. Follow up in office if no improvement in symptoms. - XR CHEST 2V FRONTAL/LAT - COVID & INFLUENZA A/B & RSV PCR, ROUTINE 2. Cough, unspecified type - ICD9: 786.2, ICD10: R05.9 As above - XR CHEST 2V FRONTAL/LAT - COVID & INFLUENZA A/B & RSV PCR, ROUTINE 3. Wheezing - ICD9: 786.07, ICD10: R06.2 See #1 - XR CHEST 2V FRONTAL/LAT - COVID & INFLUENZA A/B & RSV PCR, ROUTINE 4. Acute sinusitis, recurrence not specified, unspecified location - ICD9: 461.9, ICD10: J01.90 - continue antibiotic as already ordered. - Supportive care with plenty of fluids, rest, and analgesia prn. - Follow up in 3-5 days if symptoms persist or worsen. - XR CHEST 2V FRONTAL/LAT 5. Malaise - ICD9: 780.79, ICD10: R53.81 See #1 Can take naproxen and tylenol as discussed. Do not take more then recommended dosing. - COVID & INFLUENZA A/B & RSV PCR, ROUTINE Prescription instructions reviewed with patient as applicable. Potential red flag symptoms discussed with the patient. Reviewed appropriate action plan to take if red flag symptoms occur. Patient agreeable to treatment plan. Caryn Lowery APRN.CNP documented in this encounterSt. [facility]09-06-2024 History of Present illness Narrative* Ana Gunderson RT(R) - 01/21/2024 11:40 AM EDT Radiology Service Progress Note PATIENT NAME: Darren Reinoso DATE OF SERVICE: January 21, 2024 TIME: 11:59 AM PATIENT IDENTITY VERIFICATION COMPLETED USING TWO (2) IDENTIFIERS: Name and Date of confirmedby patient verbally. FALL SCREENING: Has the patient had 2 falls in the last year or 1 fall with injury or currently using an Ambulatory Assistive Device (Walker, Cane, Wheelchair, Crutches, etc.)? No PATIENT GENDER DATA: Female. status: : No status: NO. PATIENT RELEVANT IMPLANT DATA REVIEWED: Not Applicable PATIENT PRESENTS WITH AN IMPLANTABLE OR ATTACHED ROVING FRAME TENDER: No RADIOLOGY DEPARTMENT: General X-ray: Exam(s) Completed: Chest X-Ray PERIPHERAL IV DATA: Not applicable SIGNED BY: RT Luis(R) January 21, 2024 11:59 AM documented in this encounterMichael Ville [id number] [facility] History of Present illness Narrative* [email or web address] SUPPORT ENGINEER - 01/21/2024 11:04 AM EDT CC: Patient presents with: Recheck: Follow up, SOB HPI Darren Reinoso is a 44 year old female who presents today for follow up on SOB. Was seen 1 week ago after treatment for possible pneumonia. Was still SOB so called her pulmonology group and was told togo to her PCP. Last visit: Was seen in office on 01/03/24 with right sided chest pain, feeling feverish,cough, wheezing, and SOB on exertion. D-dimer was positive which patient saw in my chart so went to ER at [facility] on 01/04/24. CT negative for PE, possibly start of infection showing nodular densities with lymphadenopathy. EKG and blood work including troponin without concern. Instructed to start treatment as ordered by Pulmonology. Has not seen her [place] pulmonology in a few months ut were sent the CT results so orders based on that. Took antibiotics, doxycycline, z-pack, as ordered but did not finish prednisone due to it making her angry. Currently with shortness of breath with exertion, cough productive of clear sputum, wheezing, chills, fatigue, and still with right sided chest pain and back which is tender to the touch. Denies fever, edema, palpitations, syncope, weakness, N/V/D, or chest pressure. Not needing her home oxygen at this time, uses nebulizer twice daily, and using her albuterol inhaler 3-4 times a day. REVIEW OF SYSTEMS See HPI PAST MEDICAL HISTORY No date: Adjustment disorder with depressed mood No date: Anxiety state, unspecified No date: Dysmenorrhea No date: Hearing loss Comment: no aids No date: Other and unspecified ovarian cyst Comment: Ovarian cyst No date: RECOVERING Comment: ALCOHOL, MARIJUANA & COCAINE PAST SURGICAL HISTORY 03/02/2017: COLONOSCOPY FLX DX W/COLLJ SPEC WHEN PFRMD Comment: Colonoscopy No date: HEMORRHOIDECTOMY 2003: INCISE FINGER TENDON SHEATH; Right 07/23/2021: INCISE FINGER TENDON SHEATH; Right Comment: Right thumb and middle trigger finger releases No date: LAPS ABD PRTM&OMENTUM DX W/WO SPEC BR/WA SPX Comment: Laparoscopy, diagnostic No date: LIG/TRNSXJ FLP TUBE ABDL/VAG APPR UNI/BI Comment: Tubal ligation 1990: OVARIAN CYSTECTOMY Comment: ovarian cysts removed 2000: PAST SURGICAL HISTORY OF Comment: ORIF left ankle No date: PAST SURGICAL HISTORY OF Comment: right middle finger surgery, staph debridment. 07/28/2013: PAST SURGICAL HISTORY OF Comment: left carpal tunnel release 2015: RECTAL EXAM UNDER ANESTHESIA 06/08/2014: [facility] N/CARPAL TUNNEL SURG Comment: right capral tunnel release 04/02/2017: TNOT ELBOW LATERAL/MEDIAL DEBRIDE OPEN; Right Comment: Right elbow extensor tendon debridement 05/18/2018: TNOT ELBOW LATERAL/MEDIAL DEBRIDE OPEN; Left Comment: Left elbow extensor tendon debridement No date: TONSILLECTOMY PRIMARY/SECONDARY <AGE 12 Comment: Tonsillectomy ALLERGIES Amoxicillin, Codeine, Darvocet A500 [Propoxyphene N-Acetaminophen], Propoxyphene, and Sulfa (Sulfonamide Antibiotics) MEDICATIONS Nebulizer Accessories kit 1 Each every 4 hours as needed (wheezing or shortness of breath). albuterol (PROVENTIL) 2.5 mg /3 mL (0.083 %) nebulizer solution Use 3 mL via nebulizer every 4 hours as needed for wheezing/shortness of breath. Use over 5-15minutes. tiZANidine (ZANAFLEX) 4 mg tablet Take 1 tablet by mouth every 8 hours as needed. ondansetron orally disintegrating (ZOFRAN ODT) 4 mg disintegrating tablet Take 1 tablet by mouth every 6 hours as needed for nausea/vomiting. flash glucose sensor (FREESTYLE ANA PAULA 2 SENSOR) kit USE TO CHECK BLOOD SUGAR DAILY celecoxib (CELEBREX) 100 mg capsule Take 1 capsule by mouth once daily. omeprazole (PRILOSEC) 40 mg capsule TAKE 1 CAPSULE BY MOUTH DAILY 1/2 HOUR BEFORE BREAKFAST dulaglutide (TRULICITY) 0.75 mg/0.5 mL pen injector Inject 0.75 mg subcutaneously one time a week. Inject dose once per week. Discard Pen After furosemide (LASIX) 40 mg tablet Take 1 tablet by mouth once daily. levothyroxine (SYNTHROID) 50 mcg tablet TAKE 1 TABLET BY MOUTH DAILY TAKE ON EMPTY STOMACH. FOR THYROID cetirizine (ZYRTEC) 10 mg tablet Take 1 tablet by mouth once daily. metoprolol tartrate, short acting, (LOPRESSOR) 25 mg tablet Take 1 tablet by mouth two times a day. Blood Pressure Monitor 1 Each as directed. Dispense with Extra Large Cuff Blood Pressure Kit-Extra Large kit 1 Each once daily. lancets (UNILET SUPER THIN LANCETS) 30 gauge Test blood sugar(s) 4 times daily. blood sugar diagnostic (TRUE METRIX GLUCOSE TEST STRIP) test strip Test blood sugar(s) 4 times daily. potassium chloride (K-TAB) 10 mEq tablet Take 1 tablet by mouth daily with breakfast. Take with lasix famotidine (PEPCID) 20 mg tablet Take 1 tablet by mouth daily at bedtime. atorvastatin (LIPITOR) 10 mg tablet Take 1 tablet by mouth once daily. hydrOXYzine HCl (ATARAX) 25 mg tablet Take 1 tablet by mouth at bedtime as needed for anxiety. diclofenac (VOLTAREN) 1 % topical gel Apply 2 g to affected area twice daily as needed. fluticasone (FLONASE) 50 mcg/actuation nasal spray Use 2 Sprays in each nostril once daily. Rinse mouth after use. promethazine (PHENERGAN) 25 mg tablet Take 1 tablet by mouth every 8 hours as needed. TRUE METRIX GLUCOSE METER test blood sugar DIRECTED SYMBICORT 160-4.5 mcg/actuation inhaler montelukast (SINGULAIR) 10 mg tablet lamoTRIgine (LAMICTAL) 200 mg tablet glucose 4 gram chewable tablet Take 3-4 tablets for hypoglycemia. Recheck blood sugar in 15 min after dose flash glucose scanning reader (FREESTYLE ANA PAULA 2 READER) 1 Each once daily. lidocaine (ANECREAM5) crea Apply to affected area as needed. albuterol HFA (VENTOLIN HFA) 90 mcg/actuation inhaler Inhale 2 Puffs as instructed every 4 hours asneeded for wheezing/shortness of breath. ipratropium-albuterol (DUONEB) 0.5 mg-3 mg(2.5 mg base)/3 mL nebu INHALE 3 ML INSTRUCTED EVERY 4HOURS NEEDED FAMILY HISTORY Problem Relation Age of Onset Heart Mother Hypertension Father Psychiatry Father Bipolar Psychiatry Sister No Known Problems Brother No Known Problems Maternal Grandmother Cancer Maternal Grandfather Diabetes Paternal Grandmother Stroke Paternal Grandmother Great Grandmother No Known Problems Paternal Grandfather Cancer Paternal Aunt other ([place]) Paternal Aunt Great aunt Colon Cancer No Family History Social History Tobacco Use Smoking status: Every Day Current packs/day: 0.50 Average packs/day: 0.5 packs/day for 31.7 years (15.8 ttl pk-yrs) Types: Cigarettes Start date: 05/17/1992 Smokeless tobacco: Never Vaping Use Vaping status: Never Used Substance Use Topics Alcohol use: Not Currently Comment: Seldom- uses once every couple months Drug use: Not Currently Comment: marijuana h/o, 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 PHYSICAL EXAM BP 136/84 Pulse 102 Temp 36.6 C (97.9 F) (Temporal) Resp 16 Wt (!) 146.2 kg (322 lb 5 oz) LMP 07/09/2023 (Approximate) SpO2 92% BMI 57.10 kg/m General Appearance: well appearing, in no acute distress, alert Pysch: mood and affect broad and appropriate Eyes: conjunctiva pink and moist, no icterus, sclera white, non-injected Lungs: Lungs clear to auscultation. No wheezing, rhonchi, rales. Heart: RRR without murmur, gallop, or rubs. No ectopy Health maintenance reviewed with patient: Depression Screening Never done BP Controlled (<130/80) Never done Mammogram Screening Never done Colorectal Cancer Screening due on 03/02/2022 Covid-19 Vaccine( - 2022- season) Never done Influenza Vaccine(1) due on 01/16/2024 DTaP,Tdap,Td Vaccine(2 - Td or Tdap) due on 05/31/2024 Hepatitis B Vaccine(1 of 3 - 19+ 3-dose series) due on 05/31/2024 Spirometry due on 05/31/2024 Cervical Cancer Screening due on 05/31/2024 Pneumococcal Vaccine(2 of 2 - PPSV23 or PCV20) due on 05/31/2024 HbA1C due on 04/05/2024 LDL Cholesterol due on 10/03/2024 Annual PCP Team Chronic Disease Visit due on 01/12/2025 HIV Screening Completed HPV Vaccine Aged Out Urine Albumin:Creatinine Ratio Discontinued Dilated Retinal Exam Discontinued Diabetic Foot Exam Discontinued Hepatitis C Screening Discontinued DATA REVIEWED: Most recent labs and imaging results. ASSESSMENT/PLAN: 1. Shortness of breath - ICD9: 786.05, ICD10: R06.02 (primary diagnosis) Possibly still with infection, patient feels she can monitor her moods closely at home and would like to restart prednisone as she was breathing better with this. Augmentin ordered (not a true allergy, gets yeast infection), diflucan to prevent yeast infection, prednisone as ordered. - follow up depending on results Go to ER for increased shortness of breath, pain, fever, chest pressure, or any urgent concern - XR CHEST 2V FRONTAL/LAT - COMPLETE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 Days as directed on package labeling Unchanged nortriptyline (nortriptyline 10 mg oral capsule) 1 cap by mouth Three (3) times a day Unchanged predniSONE (predniSONE 10 mg oral tablet) 1 tab(s) by mouth Two (2) times a day Duration: 3 Days with food Unchanged ranitidine (ranitidine 150 mg oral tablet (NF)) 1 tab(s) by mouth Once a day (in the morning) Unchanged tiZANidine (tiZANidine 2 mg oral tablet) 2 tab(s) by mouth Every 8 hours Unchanged zolpidem (Ambien) by mouth Daily at bedtime Please take this list to your next doctor s visit. Bring all medications you take, including over the counter medications, herbals and other supplements with you to your doctor s visit. Patients and families are reminded to discard old lists and to update any records with all medication providers or retail pharmacies. Education Materials Shortness of Breath (Dyspnea) Shortness of breath is the feeling that you can't catch your breath or get enough air. It is also known as dyspnea. Dyspnea can be caused by many different conditions. They include: Acute asthma attack Worsening of chronic lung diseases such as chronic bronchitis and emphysema Heart failure. This is when weak heart muscle allows extra fluid to collect in the lungs. Panic attacks or anxiety. Fear can cause rapid breathing (hyperventilation). Pneumonia, or an infection in the lung tissue Exposure to toxic substances, fumes, smoke, or certain medicines Blood clot in the lung (pulmonary embolism). This is often from a piece of blood clot in a deep vein of the leg (deep vein thrombosis) that breaks off and travels to the lungs. Heart attack or heart-related chest pain (angina) Anemia Collapsed lung (pneumothorax) Dehydration Based on your visit today, the exact cause of your shortness of breath is not certain. Your tests don t show any of the serious causes of dyspnea. You may need other tests to find out if you have a serious problem. It s important to watch for any new symptoms or symptoms that get worse. Follow up with your healthcare provider as directed. Home care Follow these tips to take care of yourself at home: When your symptoms are better, go back to your usual activities. If you smoke, you should stop. Join a quit-smoking program or ask your healthcare provider for help. Eat a healthy diet and get plenty of sleep. Get regular exercise. Talk with your healthcare provider before starting to exercise, especially ifyou have other medical problems. Cut down on the amount of caffeine and stimulants you consume. Follow-up care Follow up with your healthcare provider, or as advised. If tests were done, you will be told if your treatment needs to be changed. You can call as directed for the results. If an X-ray was taken, a specialist will review it. You will be notified of any new findings that may affect your care. Call 911 Shortness of breath may be a sign of a serious medical problem. For example, it may be a problem with your heart or lungs. Call 911 if you have worsening shortness of breath or trouble breathing, especially with any of the symptoms below: Confusion or difficulty waking Fainting or loss of consciousness. Fast or irregular heartbeat Coughing up blood Pain in your chest, arm, shoulder, neck, or upper back Sweating When to seek medical advice Call your healthcare provider right away if any of these occur: Slight shortness of breath or wheezing Redness, pain or swelling in your leg, arm, or other body area Swelling in both legs or ankles Fast weight gain Dizziness or weakness Fever of 100.4 F (38 C) or higher, or as directed by your healthcare provider [phone] [employer]. [address] [place] [address]. All rights reserved. This information is not intended as a substitute for professional medical care. Always follow yourhealthcare professional's instructions. Additional Information VACCINATE! IT SAVES LIVES! Members of the community who have not yet received the COVID-19 vaccine and would like to receive it can visit one of [facility] vaccine clinics. There are many vaccine clinic locations within the [facility]. For locations and available times, please visit www.gettheshot.coronavirus.[place].gov/. It is important to note that some COVID mobile vaccine clinics are held outdoors and may be canceled in rainy or stormy conditions. To learn more about pediatric vaccinations (ages 5-11), we invite you to visit the [facility] webpage. https://www.[email or web address].org/pages/7819-Ousrc-Dbjiawtafhz-Xcyperckoi-Sapet-Woa stions.htmlTo learn more about the COVID-19 vaccine, we invite you to visit the CDC website for a list of frequently asked questions. https://www.cdc.gov/coronavirus/2019-ncov/vaccines/faq.html [facility] Patient Portal Access Instructions: Stay connected with your healthcare team and access your personal medical information anytime with the [facility] Patient Portal. If you would like a full copy of your medical records please contact the [facility] Medical Records Department Wednesday through Wednesday between 8a.m. and 4:30p.m. Please follow the directions below to access the portal: 1.Access the email account you provided upon registration to the hospital.2.Look for an invitation email from [facility].3.Open the email and access the invitation link: Accept Invitation to [facility]4.Fill in the required brewster to create your account. Sign into www.[facility] [employer] Store with your username and password that you created in the above steps to stay up to date. You can then view a summary of results, a summary of your visits, and the ability to download your summaries to your computer or send the information securely to a physician. Remember that your healthcare information is confidential, so carefully consider who you will allow to register on the [facility] Patient Portal for access to your information. You can also access the [facility] Patient Portal on the [employer]. Simply click on Health Records under [employer] and then click on the [facility] logo. HOW TO SAFELY DISPOSE OF PRESCRIPTION MEDICATIONS Please use one of the following methods to safely dispose of your unused medications. 1.Use a drug disposal kit: the drug disposal pouch allows you to safely discard your old and unuseddrugs. Ask your nurse to give you one when you are discharged.2.Visit a local take-back location: Many local pharmacies and police departments have programs that collect old and unwanted prescriptiondrugs. Call your local pharmacy or go to http://Up My Game.Disconnect/1U4Eq6j to find one close to you.3.Make use of household items: Use cat litter or old coffee grounds to dispose medications if other options arenot available. Mix your drugs with these household products, seal them in an airtight container andthrow it into the garbage. Call [facility]: [phone] to be sure your drugs can be disposed of in this way. Some medicines may require a different approach.4.Never flush your medications down the toilet. IF YOU HAVE BEEN PRESCRIBED AN OPIOIDS FOR PAIN If you have been prescribed an opioid (such as hydrocodone, oxycodone or morphine), it is critical to understand the possible side effects and risks of opioid pain medications. Even when taken as directed, opioids can have several side effects including: Tolerance, meaning you might need to take more of a medication for the same pain relief. Nausea, vomiting and/or constipation. Sleepiness, dizziness, dry mouth, confusion, depression or itching. Physical dependence, meaning you have withdrawal symptoms when a medication is stopped ? this can develop within a few days. KNOW YOUR RESPONSIBILITIES It is important to know exactly how much and how often to take the opioid pain medications you are prescribed. Never take opioids in higher amounts or more often than prescribed. Do not combine opioids with alcohol or other drugs that cause drowsiness, such as benzodiazepines, also known as benzos,including diazepam and alprazolam, muscle relaxants or sleep aids. Never sell or share prescriptionopioids. This is illegal. Store opioids in a secure place and out of reach of others (including children, family, friends and visitors). The last page(s) of this document has been signed and retained as a CHART COPY Signatures Patient Education Materials Shortness of Breath (Dyspnea) Medication Leaflets My discharge plan and instructions have been reviewed and explained to me and I,DARREN REINOSO understand my current condition and have read and understand these discharge instructions. I have received a written copy of the plan/instructions. If I have questions, I am aware that I should contact my d octor. Patient/Evening Sitter Signature: Date/Time: Relationship to Patient: Witness Name/Signature: Date/Time: [facility]08-20-2024 Note ORIGINAL EXAMINATION: CTA OF THE CHEST01/04/2024 6:14 pm HISTORY: ORDERING SYSTEM PROVIDED HISTORY: Reason for Exam: chest pain; suspect PE COMPARISON: CTA chest 02/19/2021 TECHNIQUE: A single series was obtained during the early arterial/pulmonary arterial phase of contrast enhancement. Multiplanar and 3D reconstructed images were generated, reviewed and manipulated on a separate workstation. This exam was performed according to our departmental dose-optimization program which includes automated exposure control, adjustment of the mA and/or kVp according to patient size and/or use of iterative reconstruction technique where applicable. FINDINGS: VASCULAR: Suboptimal evaluation due to bolus timing. The pulmonary arteries demonstrate no evidence of pulmonary embolus. No definite distension of the proximal pulmonary vasculature to indicate pulmonary hypertension. BONES: No acute osseous abnormalities. Mild degenerative changes of the spine. THYROID/AIRWAY: The visualized thyroid gland is unremarkable. Small amount of aerated secretions along the right posterior trachea. The mainstem bronchi appear patent. HEART: The heart is normal in size. No pericardial effusion. The great vessels are normal in course and caliber. LYMPH NODES: Borderline enlarged right hilar lymph nodes measuring up to 1.0 cm. No pathologically enlarged mediastinal, left hilar, or axillary lymph nodes are identified. LUNGS: Scattered pleuroparenchymal scarring. Ill-defined nodular density in the posterolateral right upper lobe measures to 0.5 cm (3; 65). Additional 0.4 cm nodule along the posterolateral right upper lobe (3; 74). 0.4 cm nodule along the posterior right upper lobe (3; 104) small triangular shaped pleural based density along the right minor fissure may represent intrapulmonary lymph node. Lingular atelectasis. 0.5 cm nodule along the medial left upper lobe (3; 111). No pleural effusion, or pneumothorax. ABDOMEN: The visualized portion of the upper abdomen is grossly unremarkable. IMPRESSION: No evidence of pulmonary embolus. New scattered nodular densities in the bilateral upper lobes measuring up to 0.5 cm. This may represent a mild or developing multifocal infectious/inflammatory process. Follow-up imaging after treatment is recommended to rule out underlying lesion. Mildly enlarged right hilar lymph nodes may be hyperplastic/reactive in nature. Attention on follow-up is recommended. I have personally reviewed the images and agree with the resident's findings and interpretation. Interpreted by: Maury Gallardo Preliminary Report By: Josue Del Toro Electronically signed By Maury Gallardo Dictated Date: 01/04/2024 6:18:25 PM Prelim Date: 01/04/2024 6:29:27 PM Sign Date: 01/04/2024 6:51:36 PM Ordering Provider: [facility]08-20-2024 Note Sinus rhythm Electronic Signature: CHELSIE MORALES MD 01/04/2024 16:57:00[facility] 08-20-2024 Telephone encounter Note* Telephone Encounter - Babar Phillip MD - 01/04/2024 4:25 PM EDT Noted Regards, Babar Phillip MD [facility]08-20-2024 Miscellaneous Notes* Telephone Encounter - Babar Phillip MD - 01/04/2024 4:25 PM EDT Noted Regards, Babar Phillip MD * Telephone Encounter - Chaparrita Paez RN - 01/04/2024 3:36 PM EDT Pt called in and reports [facility] had a 4 hour wait and she was not going to wait that long. She was going to [facility]. Called and talked with Sujatha with [facility] and gave her the report Jignesh had previously. Will try to fax information to fax # [phone]. She reports they just installed the new fax machines, so they may or may not get the information. * Telephone Encounter - Silviano Root RN - 01/04/2024 2:20 PM EDT Spoke with patient. Patient reports she is feeling bad, and agreeable to go to [facility] ER. States she will be at ER in approx 35-45 min. This nurse phoned ER and given D- Dimer, CXR, EKG results, gave brief hx on patient. Advised patient is having symptoms of SOB, increased pain in chest to back with deep breath, and cough. * Telephone Encounter - Silviano Root RN - 01/04/2024 1:01 PM EDT Patient reports she did labs for Caryn yesterday, and D-Dimer is elevated Latest Ref Rng 01/03/2024 d Dimer <500 ng/mL FEU 970 (H) Legend: (H) High Patient reports she continues to have right chest pain that radiates to her back, pain increases with deep breath. Patient is coughing up clear thick mucous. Has SOB daily but seems worse today- feels winded. Reports CXR yesterday was negative, and EKG yesterday was normal. Patient contacted pulm at [facility], and this nurse faxed lab results to [facility] Pulm, attn: David Regalado Np, per patient request. Asking pcp to please advise patient. documented in this encounterSt. [facility] Telephone encounter Note * Telephone Encounter - Chaparrita Paez RN - 01/04/2024 3:36 PM EDT Pt called in and reports [facility] had a 4 hour wait and she was not going to wait that long. She was going to [facility]. Called and talked with Sujatha with [facility] and gave her the report Jignesh had previously. Will try to fax information to fax # [phone]. She reports they just installed the new fax machines, so they may or may not get the information. [facility]08-20-20[facility] Telephone encounter Note* Telephone Encounter - Silviano Root RN - 01/04/2024 2:20 PM EDT Spoke with patient. Patient reports she is feeling bad, and agreeable to go to [facility] ER. States she will be at ER in approx 35-45 min. This nurse phoned ER and given D- Dimer, CXR, EKG results, gave brief hx on patient. Advised patient is having symptoms of SOB, increased pain in chest to back with deep breath, and cough. [facility]08-[facility] Telephone encounter Note* Telephone Encounter - Silviano Root RN - 01/04/2024 1:01 PM EDT Patient reports she did labs for Caryn yesterday, and D-Dimer is elevated Latest Ref Rng 01/03/2024 d Dimer <500 ng/mL FEU 970 (H) Legend: (H) High Patient reports she continues to have right chest pain that radiates to her back, pain increases with deep breath. Patient is coughing up clear thick mucous. Has SOB daily but seems worse today- feels winded. Reports CXR yesterday was negative, and EKG yesterday was normal. Patient contacted pulm at [facility], and this nurse faxed lab results to [facility] Pulm, attn: David Regalado Np, per patient request. Asking pcp to please advise patient. [facility]08-19-2024 History of Present illness Narrative* Brittney Trent RT(R) - 01/03/2024 2:20 PM EDT Radiology Service Progress Note PATIENT NAME: Darren Reinoso DATE OF SERVICE: January 03, 2024 TIME: 2:22 PM PATIENT IDENTITY VERIFICATION COMPLETED USING TWO (2) IDENTIFIERS: Name and Date of confirmedby patient verbally. FALL SCREENING: Has the patient had 2 falls in the last year or 1 fall with injury or currently using an Ambulatory Assistive Device (Walker, Cane, Wheelchair, Crutches, etc.)? No PATIENT GENDER DATA: Female. status: : No status: NO. PATIENT RELEVANT IMPLANT DATA REVIEWED: Yes PATIENT PRESENTS WITH AN IMPLANTABLE OR ATTACHED ROVING FRAME TENDER: No RADIOLOGY DEPARTMENT: General X-ray: Exam(s) Completed: Chest X-Ray PERIPHERAL IV DATA: Not applicable SIGNED BY: RT Bob(R) January 03, 2024 2:22 PM documented in this encounterSt. [facility] History of Present illness Narrative* Sebastián CarynLILI vallejo.ICT SUPPORT ENGINEER - 01/03/2024 1:12 PM EDT CC: Patient presents with: Recheck: Follow up HPI Darren Reinoso is a 43 year old female who presents today for follow up on starting trulicity but with new concerns. DIABETES MELLITUS: Ms. Reinoso denies excessive thirst or increased frequency of urination, chest pain or dyspnea , numbness, tingling or pain in extremities, new or unusual visual symptoms, low sugar/hypoglycemic reactions, weight loss/gain, lightheadedness/dizziness, and bowel changes/loose stools.Follows a diabetic diet most of the time. She is compliant with medication(s) and is tolerating med(s) without any side effects. She reports checking her glucose on a once a day schedule with sugars in the fasting 120s range. Patient's last HgA1C was Hemoglobin A1C (%) Date Value 10/04/2023 6.0 05/31/2023 6.8 04/24/2021 6.7 10/15/2020 6.1 Hemoglobin A1C (POCT) (%) Date Value 11/23/2022 6.2 01/23/2022 6.1 ) Returned today to discuss her previous GI concerns with being on trulicity. Denies any abdominal pain or upset stomach unless she eats something spicy so avoiding this and not having difficulty. Having soft daily Bms most of the time. Still refusing to see GI. Reports having right sided chest pain radiating to right mid back for the past 3 weeks. Is intermittent and not every day. Will feel like she is short of breath with this and will take an extra half of lasix which sometimes can help. This started around the same time as starting the celebrex but has much improved arthritic pain with the Celebrex. Pain occurs at random times and like a pulling sensation and sore sensation. Feels feverishly to where she feels overly warm, cough producing clear sputum, wheezing, occasional palpitations. Can occur when sitting still but increases with exertion. Also notices using her albuterol more often as well. Denies weakness, syncope, vomiting, edema, or abnormal change in weight. REVIEW OF SYSTEMS See HPI PAST MEDICAL HISTORY No date: Adjustment disorder with depressed mood No date: Anxiety state, unspecified No date: Dysmenorrhea No date: Hearing loss Comment: no aids No date: Other and unspecified ovarian cyst Comment: Ovarian cyst No date: RECOVERING Comment: ALCOHOL, MARIJUANA & COCAINE PAST SURGICAL HISTORY 03/02/2017: COLONOSCOPY FLX DX W/COLLJ SPEC WHEN PFRMD Comment: Colonoscopy No date: HEMORRHOIDECTOMY 2003: INCISE FINGER TENDON SHEATH; Right 07/23/2021: INCISE FINGER TENDON SHEATH; Right Comment: Right thumb and middle trigger finger releases No date: LAPS ABD PRTM&OMENTUM DX W/WO SPEC BR/WA SPX Comment: Laparoscopy, diagnostic No date: LIG/TRNSXJ FLP TUBE ABDL/VAG APPR UNI/BI Comment: Tubal ligation 1990: OVARIAN CYSTECTOMY Comment: ovarian cysts removed 1999: PAST SURGICAL HISTORY OF Comment: ORIF left ankle No date: PAST SURGICAL HISTORY OF Comment: right middle finger surgery, staph debridment. 07/28/2013: PAST SURGICAL HISTORY OF Comment: left carpal tunnel release 2015: RECTAL EXAM UNDER ANESTHESIA 06/08/2014: REVISE MEDIAN N/CARPAL TUNNEL SURG Comment: right capral tunnel release 04/02/2017: TNOT ELBOW LATERAL/MEDIAL DEBRIDE OPEN; Right Comment: Right elbow extensor tendon debridement 05/18/2018: TNOT ELBOW LATERAL/MEDIAL DEBRIDE OPEN; Left Comment: Left elbow extensor tendon debridement No date: TONSILLECTOMY PRIMARY/SECONDARY <AGE 12 Comment: Tonsillectomy ALLERGIES Amoxicillin, Codeine, Darvocet A500 [Propoxyphene N-Acetaminophen], Propoxyphene, and Sulfa (Sulfonamide Antibiotics) MEDICATIONS celecoxib (CELEBREX) 100 mg capsule Take 1 capsule by mouth once daily. omeprazole (PRILOSEC) 40 mg capsule TAKE 1 CAPSULE BY MOUTH DAILY 1/2 HOUR BEFORE BREAKFAST dulaglutide (TRULICITY) 0.75 mg/0.5 mL pen injector Inject 0.75 mg subcutaneously one time a week. Inject dose once per week. Discard Pen After ondansetron orally disintegrating (ZOFRAN ODT) 4 mg disintegrating tablet Take 1 tablet by mouth every 6 hours as needed for nausea/vomiting. furosemide (LASIX) 40 mg tablet Take 1 tablet by mouth once daily. levothyroxine (SYNTHROID) 50 mcg tablet TAKE 1 TABLET BY MOUTH DAILY TAKE ON EMPTY STOMACH. FOR THYROID cetirizine (ZYRTEC) 10 mg tablet Take 1 tablet by mouth once daily. metoprolol tartrate, short acting, (LOPRESSOR) 25 mg tablet Take 1 tablet by mouth two times a day. flash glucose sensor (Super[employer] TechnologiesSTYLE ANA PAULA 2 SENSOR) kit USE TO CHECK BLOOD SUGAR DAILY Blood Pressure Monitor 1 Each as directed. Dispense with Extra Large Cuff Blood Pressure Kit-Extra Large kit 1 Each once daily. lancets (UNILET SUPER THIN LANCETS) 30 gauge Test blood sugar(s) 4 times daily. blood sugar diagnostic (TRUE METRIX GLUCOSE TEST STRIP) test strip Test blood sugar(s) 4 times daily. potassium chloride (K-TAB) 10 mEq tablet Take 1 tablet by mouth daily with breakfast. Take with lasix famotidine (PEPCID) 20 mg tablet Take 1 tablet by mouth daily at bedtime. atorvastatin (LIPITOR) 10 mg tablet Take 1 tablet by mouth once daily. hydrOXYzine HCl (ATARAX) 25 mg tablet Take 1 tablet by mouth at bedtime as needed for anxiety. nortriptyline (PAMELOR) 50 mg capsule Take 1 capsule by mouth daily at bedtime. diclofenac (VOLTAREN) 1 % topical gel Apply 2 g to affected area twice daily as needed. fluticasone (FLONASE) 50 mcg/actuation nasal spray Use 2 Sprays in each nostril once daily. Rinse mouth after use. promethazine (PHENERGAN) 25 mg tablet Take 1 tablet by mouth every 8 hours as needed. TRUE METRIX GLUCOSE METER test blood sugar DIRECTED SYMBICORT 160-4.5 mcg/actuation inhaler montelukast (SINGULAIR) 10 mg tablet lamoTRIgine (LAMICTAL) 200 mg tablet glucose 4 gram chewable tablet Take 3-4 tablets for hypoglycemia. Recheck blood sugar in 15 min after dose flash glucose scanning reader (FREESTYLE ANA PAULA 2 READER) 1 Each once daily. lidocaine (ANECREAM5) crea Apply to affected area as needed. albuterol HFA (VENTOLIN HFA) 90 mcg/actuation inhaler Inhale 2 Puffs as instructed every 4 hours asneeded for wheezing/shortness of breath. ipratropium-albuterol (DUONEB) 0.5 mg-3 mg(2.5 mg base)/3 mL nebu INHALE 3 ML INSTRUCTED EVERY 4HOURS NEEDED FAMILY HISTORY Problem Relation Age of Onset Heart Mother Hypertension Father Psychiatry Father Bipolar Psychiatry Sister No Known Problems Brother No Known Problems Maternal Grandmother Cancer Maternal Grandfather Diabetes Paternal Grandmother Stroke Paternal Grandmother Great Grandmother No Known Problems Paternal Grandfather Cancer Paternal Aunt other ([place]) Paternal Aunt Great aunt Colon Cancer No Family History Social History Tobacco Use Smoking status: Every Day Current packs/day: 0.50 Average packs/day: 0.5 packs/day for 31.6 years (15.8 ttl pk-yrs) Types: Cigarettes Start date: 05/17/1992 Smokeless tobacco: Never Vaping Use Vaping status: Never Used Substance Use Topics Alcohol use: Not Currently Comment: Seldom- uses once every couple months Drug use: Not Currently Comment: marijuana h/o, 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 PHYSICAL EXAM BP 132/80 Pulse 80 Resp 16 Wt (!) 143.3 kg (316 lb) LMP 07/09/2023 (Approximate) SpO2 96% BMI 55.98 kg/m General Appearance: well appearing, in no acute distress, alert Pysch: mood and affect broad and appropriate Eyes: conjunctiva pink and moist, no icterus, sclera white, non-injected Lungs: Lungs clear to auscultation. No wheezing, rhonchi, rales. Heart: RRR without murmur, gallop, or rubs. No ectopy Health maintenance reviewed with patient: Depression Screening Never done BP Controlled (<130/80) Never done Mammogram Screening Never done Colorectal Cancer Screening due on 03/02/2022 DTaP,Tdap,Td Vaccine(2 - Td or Tdap) due on 05/31/2024 Hepatitis B Vaccine(1 of 3 - 19+ 3-dose series) due on 05/31/2024 Spirometry due on 05/31/2024 Cervical Cancer Screening due on 05/31/2024 Covid-19 Vaccine(1 - 2022- season) due on 05/31/2024 Pneumococcal Vaccine(2 of 2 - PPSV23 or PCV20) due on 05/31/2024 Influenza Vaccine(1) due on 01/16/2024 HbA1C due on 04/05/2024 LDL Cholesterol due on 10/03/2024 Annual PCP Team Chronic Disease Visit due on 12/02/2024 HIV Screening Completed HPV Vaccine Aged Out Urine Albumin:Creatinine Ratio Discontinued Dilated Retinal Exam Discontinued Diabetic Foot Exam Discontinued Hepatitis C Screening Discontinued DATA REVIEWED: Most recent labs and imaging results. EKG Interpretation: RHYTHM: Normal sinus rhythm at 75 beats per minute AXIS: Normal axis INTERVALS: Normal NM interval QRS COMPLEX: Normal ST SEGMENT: Normal ST-T segments QT INTERVAL: Normal COMPARED WITH PRIOR: unchanged ASSESSMENT/PLAN: 1. 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 - stop celebrex Follow up in 2 weeks. - go to ER for increased pain, shortness of breath, or other urgent concern. - ECG COMPLETE - XR CHEST 2V FRONTAL/LAT - D-DIMER - BASIC METABOLIC PANEL - MAGNESIUM - COMPLETE BLOOD COUNT AND DIFFERENTIAL 2. Shortness of breath - ICD9: 786.05, ICD10: R06.02 As above - ECG COMPLETE - XR CHEST 2V FRONTAL/LAT - D-DIMER - NT PRO BNP - BASIC METABOLIC PANEL - MAGNESIUM - COMPLETE BLOOD COUNT AND DIFFERENTIAL 3. Palpitations - ICD9: 785.1, ICD10: R00.2 EKG normal, has had palpitations with normal workup in the past If lab work normal and no improvement with holding celebrex will need to repeat zio patch and possibly echo. - BASIC METABOLIC PANEL - MAGNESIUM - COMPLETE BLOOD COUNT AND DIFFERENTIAL 4. Controlled type 2 diabetes mellitus without complication, without long-term current use of insulin (HCC) - ICD9: 250.00, ICD10: E11.9 - Controlled - Continue current medications - reports tolerating trulicity at this time. - Blood glucose monitoring on a once daily schedule - Counseled on healthy diet and regular exercise - Discussed need for and benefit of weight loss. BMI 55.98 kg/(m^2) Prescription instructions reviewed with patient as applicable. Potential red flag symptoms discussed with the patient. Reviewed appropriate action plan to take if red flag symptoms occur. Patient agreeable to treatment plan. Caryn Lowery APRN.CNP documented in this encounterSt. [facility] Telephone encounter Note * Telephone Encounter - Silviano Root RN - 12/10/2023 11:57 AM EDT Patient reports she was prescribed amoxicillin for tooth infection in [facility] on 12-06-23, and has now developed a vaginal yeast infection- vaginal itching, burning, discharge. Asking Kilo Rubin, to send Rx for diflucan to [facility]. Pended previous Rx. [facility] Miscellaneous Notes* Telephone Encounter - Silviano Root RN - 12/10/2023 11:57 AM EDT Patient reports she was prescribed amoxicillin for tooth infection in [facility] on 12-06-23, and has now developed a vaginal yeast infection- vaginal itching, burning, discharge. Asking Kilo Rubin, to send Rx for diflucan to [facility]. Pended previous Rx. documented in this encounterSt. [facility]07-[facility] Telephone encounter Note * Telephone Encounter - Caryn Lowery APRN.CNP - 12/08/2023 7:59 AM EDT Ok to continue this as long as abdominal pain and other symptoms are fully resolved. Thank you Caryn Lowery APRN.CNP [facility]07-[facility] Miscellaneous Notes* Telephone Encounter - Caryn Lowery APRN.CNP - 12/08/2023 7:59 AM EDT Ok to continue this as long as abdominal pain and other symptoms are fully resolved. Thank you Caryn Lowery APRN.JACINTA * Telephone Encounter - Swati Uriostegui LPN - 12/07/2023 4:06 PM EDT Prescription Refill Information The patient has been identified by name and date of : Yes Caregiver verified no other encounters exist for this prescription request: Yes Caregiver confirmed with patient/requestor that no other refills are due, in the near future, with this provider at this time: Yes The last office visit in the department: 12/03/23 Does the patient have a future office visit with this provider/department: Yes Requested Prescriptions Pending Prescriptions Disp Refills celecoxib (CELEBREX) 100 mg capsule 30 capsule 1 Sig: Take 1 capsule by mouth once daily. Swati Uriostegui LPN December 07, 2023 4:07 PM documented in this encounterSt. [facility]07-[facility]24 Telephone encounter Note * Telephone Encounter - Swati Uriostegui LPN - 12/07/2023 4:06 PM EDT Prescription Refill Information The patient has been identified by name and date of : Yes Caregiver verified no other encounters exist for this prescription request: Yes Caregiver confirmed with patient/requestor that no other refills are due, in the near future, with this provider at this time: Yes The last office visit in the department: 12/03/23 Does the patient have a future office visit with this provider/department: Yes Requested Prescriptions Pending Prescriptions Disp Refills celecoxib (CELEBREX) 100 mg capsule 30 capsule 1 Sig: Take 1 capsule by mouth once daily. Swati Uriostegui LPN December 07, 2023 4:[address] [facility]07-[facility] History of Present illness Narrative* Steve Ramirez APRN.CNP - 12/06/2023 3:00 PM EDT Images from the original note were not included. Subjective HPI Nontoxic-appearing female presents urgent care chief complaint dental pain. Duration of symptoms today. Associated symptoms right upper dental pain. States she was eating breakfast today when she broke her tooth. Presents today for evaluation. Does have a dentist but not till this Wednesday. Presents today for evaluation. OTC medications mouthwash. Denies any other concerns. Denies any fever body aches chills productive cough chest pain shortness of breath pleuritic pain hemoptysis nausea vomitingabdominal pain change in bowel or bladder habits. Past medical history prescription medication use and allergies reviewed. .Patient presents with: Dental Problem: Tooth infection upper right started this morning PAST MEDICAL HISTORY Diagnosis Date Adjustment disorder with depressed mood Anxiety state, unspecified Dysmenorrhea Hearing loss no aids Other and unspecified ovarian cyst Ovarian cyst RECOVERING ALCOHOL, MARIJUANA & COCAINE PAST SURGICAL HISTORY Procedure Laterality Date COLONOSCOPY FLX DX W/COLLJ SPEC WHEN PFRMD 03/02/2017 Colonoscopy HEMORRHOIDECTOMY INCISE FINGER TENDON SHEATH Right 2002 INCISE FINGER TENDON SHEATH Right 07/23/2021 Right thumb and middle trigger finger releases LAPS ABD PRTM&OMENTUM DX W/WO SPEC BR/WA SPX Laparoscopy, diagnostic LIG/TRNSXJ FLP TUBE ABDL/VAG APPR UNI/BI Tubal ligation OVARIAN CYSTECTOMY 1990 ovarian cysts removed PAST SURGICAL HISTORY OF 1999 ORIF left ankle PAST SURGICAL HISTORY OF right middle finger surgery, staph debridment. PAST SURGICAL HISTORY OF 07/28/2013 left carpal tunnel release RECTAL EXAM UNDER ANESTHESIA 2014 REVISE MEDIAN N/CARPAL TUNNEL SURG 06/08/2014 right capral tunnel release TNOT ELBOW LATERAL/MEDIAL DEBRIDE OPEN Right 04/02/2017 Right elbow extensor tendon debridement TNOT ELBOW LATERAL/MEDIAL DEBRIDE OPEN Left 05/18/2018 Left elbow extensor tendon debridement TONSILLECTOMY PRIMARY/SECONDARY <AGE 12 Tonsillectomy ALLERGIES Amoxicillin, Codeine, Darvocet A500 [Propoxyphene N-Acetaminophen], Propoxyphene, and Sulfa (Sulfonamide Antibiotics) MEDICATIONS omeprazole (PRILOSEC) 40 mg capsule TAKE 1 CAPSULE BY MOUTH DAILY 1/2 HOUR BEFORE BREAKFAST dulaglutide (TRULICITY) 0.75 mg/0.5 mL pen injector Inject 0.75 mg subcutaneously one time a week. Inject dose once per week. Discard Pen After ondansetron orally disintegrating (ZOFRAN ODT) 4 mg disintegrating tablet Take 1 tablet by mouth every 6 hours as needed for nausea/vomiting. furosemide (LASIX) 40 mg tablet Take 1 tablet by mouth once daily. levothyroxine (SYNTHROID) 50 mcg tablet TAKE 1 TABLET BY MOUTH DAILY TAKE ON EMPTY STOMACH. FOR THYROID celecoxib (CELEBREX) 100 mg capsule Take 1 capsule by mouth once daily. cetirizine (ZYRTEC) 10 mg tablet Take 1 tablet by mouth once daily. metoprolol tartrate, short acting, (LOPRESSOR) 25 mg tablet Take 1 tablet by mouth two times a day. flash glucose sensor ([employer] ANA PAULA 2 SENSOR) kit USE TO CHECK BLOOD SUGAR DAILY Blood Pressure Monitor 1 Each as directed. Dispense with Extra Large Cuff Blood Pressure Kit-Extra Large kit 1 Each once daily. lancets (Ryzing[employer] SUPER THIN LANCETS) 30 gauge Test blood sugar(s) 4 times daily. blood sugar diagnostic (TRUE METRIX GLUCOSE TEST STRIP) test strip Test blood sugar(s) 4 times daily. potassium chloride (K-TAB) 10 mEq tablet Take 1 tablet by mouth daily with breakfast. Take with lasix famotidine (PEPCID) 20 mg tablet Take 1 tablet by mouth daily at bedtime. atorvastatin (LIPITOR) 10 mg tablet Take 1 tablet by mouth once daily. hydrOXYzine HCl (ATARAX) 25 mg tablet Take 1 tablet by mouth at bedtime as needed for anxiety. naproxen (NAPROSYN) 500 mg tablet Take 1 tablet by mouth twice daily as needed (for pain/inflammation). Take with food. nortriptyline (PAMELOR) 50 mg capsule Take 1 capsule by mouth daily at bedtime. diclofenac (VOLTAREN) 1 % topical gel Apply 2 g to affected area twice daily as needed. fluticasone (FLONASE) 50 mcg/actuation nasal spray Use 2 Sprays in each nostril once daily. Rinse mouth after use. promethazine (PHENERGAN) 25 mg tablet Take 1 tablet by mouth every 8 hours as needed. TRUE METRIX GLUCOSE METER test blood sugar DIRECTED SYMBICORT 160-4.5 mcg/actuation inhaler montelukast (SINGULAIR) 10 mg tablet lamoTRIgine (LAMICTAL) 200 mg tablet glucose 4 gram chewable tablet Take 3-4 tablets for hypoglycemia. Recheck blood sugar in 15 min after dose flash glucose scanning reader ([employer] ANA PAULA 2 READER) 1 Each once daily. lidocaine (ANECREAM5) crea Apply to affected area as needed. albuterol HFA (VENTOLIN HFA) 90 mcg/actuation inhaler Inhale 2 Puffs as instructed every 4 hours asneeded for wheezing/shortness of breath. ipratropium-albuterol (DUONEB) 0.5 mg-3 mg(2.5 mg base)/3 mL nebu INHALE 3 ML INSTRUCTED EVERY 4HOURS NEEDED FAMILY HISTORY Problem Relation Age of Onset Heart Mother Hypertension Father Psychiatry Father Bipolar Psychiatry Sister No Known Problems Brother No Known Problems Maternal Grandmother Cancer Maternal Grandfather Diabetes Paternal Grandmother Stroke Paternal Grandmother Great Grandmother No Known Problems Paternal Grandfather Cancer Paternal Aunt other ([place]) Paternal Aunt Great aunt Colon Cancer No Family History Social History Tobacco Use Smoking status: Every Day Packs/day: .5 Types: Cigarettes Start date: 05/17/1992 Smokeless tobacco: Never Vaping Use Vaping Use: Never used Substance Use Topics Alcohol use: Not Currently Comment: Seldom- uses once every couple months Drug use: Not Currently Comment: marijuana h/o, 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 BP 148/90 Pulse 93 Temp 36.6 C (97.8 F) Resp 20 Wt (!) 143.5 kg (316 lb 5.8 oz) LMP 07/09/2023 (Approximate) SpO2 96% BMI 56.04 kg/m Review of Systems Constitutional: Negative for chills, fever and malaise/fatigue. HENT: Negative for congestion, ear discharge, ear pain, sinus pain and sore throat. Eyes: Negative for blurred vision, pain, discharge and redness. Respiratory: Negative for cough, hemoptysis, sputum production, shortness of breath, wheezing and stridor. Cardiovascular: Negative for chest pain. Gastrointestinal: Negative for abdominal pain, diarrhea, nausea and vomiting. Musculoskeletal: Negative for myalgias. Skin: Negative for itching and rash. Neurological: Negative for dizziness and headaches. Objective Physical Exam Constitutional: General: She is not in acute distress. Appearance: She is not toxic-appearing. HENT: Head: Normocephalic. Nose: Nose normal. Mouth/Throat: Mouth: Mucous membranes are moist. Dentition: Abnormal dentition. Dental tenderness and dental caries present. No dental abscesses. Pharynx: Oropharynx is clear. No oropharyngeal exudate or posterior oropharyngeal erythema. Comments: Improving mentation noted tooth 1 and 2. No abscess. Eyes: Pupils: Pupils are equal, round, and reactive to light. Cardiovascular: Rate and Rhythm: Normal rate. Pulmonary: Effort: Pulmonary effort is normal. No respiratory distress. Musculoskeletal: Cervical back: Normal range of motion. Skin: General: Skin is warm and dry. Neurological: General: No focal deficit present. Mental Status: She is alert. ASSESSMENT/PLAN: 1. Dental infection - ICD9: 522.4, ICD10: K04.7 Diagnosed with dental infection. No trismus difficulty swallowing and secretions decreased range ofmotion neck or elevation of floor mouth noted. Treat with amoxicillin. Follow-up with dentist as needed. Take Motrin as needed. Do not use with Celebrex. Patient was educated on supportive therapies. Patient will follow up with primary care provider as needed. Patient was instructed to immediately proceed to emergency room for any new, worsening, or symptoms lasting longer than anticipated. The patient's clinical presentation is otherwise unremarkable at this time. Based on exam and clinical finding, the patient is stable for discharge. Plan of care was discussed with patient. Patient verbalizes understanding and agrees to plan of care. This note was generated using [employer] software. It may contain errors in wording, punctuation, or spelling. Steve Ramirez APRN.JACINTA documented in this encounterSt. [facility]07-[facility]-2024 Telephone encounter Note * Telephone Encounter - Silviano Root RN - 12/06/2023 2:15 PM EDT Patient reports she has a tooth that had a root canal done it and it broke off today and is throbbing. Reports she has an appt with dentist on Wednesday. Asking if pcp office can prescribe AB. Advised patient she would need an appt with a provider. No openings in pcp office today. Patient states she will go [facility] Miscellaneous Notes* Telephone Encounter - Silviano Root RN - 12/06/2023 2:15 PM EDT Patient reports she has a tooth that had a root canal done it and it broke off today and is throbbing. Reports she has an appt with dentist on Wednesday. Asking if pcp office can prescribe AB. Advised patient she would need an appt with a provider. No openings in pcp office today. Patient states she will go to [facility] for evaluation. documented in this encounterSt. [facility]07-19-2024 History of Present illness Narrative* Caryn Lowery APRN.ICT SUPPORT ENGINEER - 12/03/2023 1:53 PM EDT CC: Patient presents with: Recheck: 2 week follow up, stomach pain HPI Darren Reinoso is a 43 year old female who presents today for up on abdominal pain. Was seen last 2 weeks ago. Last visit: Started trulicity a few months ago for diabetes but has had symptoms of a GI bug for the past week with nausea, vomiting, abdominal pain, decreased appetite, fatigue, fever, and diarrhea. Skipped her trS3Bubbleity shot last with no improvement. Took one antidiarrheal capsule and pe ptobismol without improvement. 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 Also is foul smelling. Abdominal pain does not vary with eating. Still has her gallbladder, last EGD and colonoscopy in 2022 and unremarkable. Was seeing Dr. Gary for GI last year after abdominal pain without cause and was told to have further diagnostics but per patient she declined this as symptoms resolved. Concern was that GLP-1 at a higher dose possibly caused this so had been discontinued. Patient unable to exercise due to knee pain and was told she had to lose weight and keep diabetes under control for surgery. Wanted to restart GLP-1 at low dose to see if tolerated as the other symptoms had unknown cause and didn't occur until higher dose. . Work was unremarkable and trulicity has been held. Refusing to see GI. Current issues: Patient feels last issues were a GI bug and symptoms improved. 2-3 days ago ate a burger and fries from [employer] which caused return of the pain vomiting and diarrhea. Hs found eating vegetables and healthier options she has no issues. Had issues like this prior to restarting the trulicity. Restarted her trulicity last night on her own accord and has had no symptoms but has not eaten yet today. Did have a normal BM for the past few days including this morning after last episode. No nausea, abdominal pain, or vomiting. Denies any low blood sugars. REVIEW OF SYSTEMS General: no fevers, no chills, no night sweats, no recurrent infections, no change in appetite, no change in energy, and no significant changes in weight Respiratory: no cough, no wheezing, no shortness of breath, no hemoptysis Cardiovascular: no chest pain, no chest pressure, no palpitations, and no swelling PAST MEDICAL HISTORY Diagnosis Date Adjustment disorder with depressed mood Anxiety state, unspecified Dysmenorrhea Hearing loss no aids Other and unspecified ovarian cyst Ovarian cyst RECOVERING ALCOHOL, MARIJUANA & COCAINE PAST SURGICAL HISTORY Procedure Laterality Date COLONOSCOPY FLX DX W/COLLJ SPEC WHEN PFRMD 03/02/2017 Colonoscopy HEMORRHOIDECTOMY INCISE FINGER TENDON SHEATH Right 2002 INCISE FINGER TENDON SHEATH Right 07/23/2021 Right thumb and middle trigger finger releases LAPS ABD PRTM&OMENTUM DX W/WO SPEC BR/WA SPX Laparoscopy, diagnostic LIG/TRNSXJ FLP TUBE ABDL/VAG APPR UNI/BI Tubal ligation OVARIAN CYSTECTOMY 1990 ovarian cysts removed PAST SURGICAL HISTORY OF 1999 ORIF left ankle PAST SURGICAL HISTORY OF right middle finger surgery, staph debridment. PAST SURGICAL HISTORY OF 07/28/2013 left carpal tunnel release RECTAL EXAM UNDER ANESTHESIA 2014 REVISE MEDIAN N/CARPAL TUNNEL SURG 06/08/2014 right capral tunnel release TNOT ELBOW LATERAL/MEDIAL DEBRIDE OPEN Right 04/02/2017 Right elbow extensor tendon debridement TNOT ELBOW LATERAL/MEDIAL DEBRIDE OPEN Left 05/18/2018 Left elbow extensor tendon debridement TONSILLECTOMY PRIMARY/SECONDARY <AGE 12 Tonsillectomy ALLERGIES Amoxicillin, Codeine, Darvocet A500 [Propoxyphene N-Acetaminophen], Propoxyphene, and Sulfa (Sulfonamide Antibiotics) MEDICATIONS dulaglutide (TRULICITY) 0.75 mg/0.5 mL pen injector Inject 0.75 mg subcutaneously one time a week. Inject dose once per week. Discard Pen After ondansetron orally disintegrating (ZOFRAN ODT) 4 mg disintegrating tablet Take 1 tablet by mouth every 6 hours as needed for nausea/vomiting. furosemide (LASIX) 40 mg tablet Take 1 tablet by mouth once daily. levothyroxine (SYNTHROID) 50 mcg tablet TAKE 1 TABLET BY MOUTH DAILY TAKE ON EMPTY STOMACH. FOR THYROID celecoxib (CELEBREX) 100 mg capsule Take 1 capsule by mouth once daily. cetirizine (ZYRTEC) 10 mg tablet Take 1 tablet by mouth once daily. metoprolol tartrate, short acting, (LOPRESSOR) 25 mg tablet Take 1 tablet by mouth two times a day. flash glucose sensor ([employer] ANA PAULA 2 SENSOR) kit USE TO CHECK BLOOD SUGAR DAILY Blood Pressure Monitor 1 Each as directed. Dispense with Extra Large Cuff Blood Pressure Kit-Extra Large kit 1 Each once daily. lancets (UNILET SUPER THIN LANCETS) 30 gauge Test blood sugar(s) 4 times daily. blood sugar diagnostic (TRUE METRIX GLUCOSE TEST STRIP) test strip Test blood sugar(s) 4 times daily. omeprazole (PRILOSEC) 40 mg capsule TAKE 1 CAPSULE BY MOUTH DAILY 1/2 HOUR BEFORE BREAKFAST potassium chloride (K-TAB) 10 mEq tablet Take 1 tablet by mouth daily with breakfast. Take with lasix famotidine (PEPCID) 20 mg tablet Take 1 tablet by mouth daily at bedtime. atorvastatin (LIPITOR) 10 mg tablet Take 1 tablet by mouth once daily. hydrOXYzine HCl (ATARAX) 25 mg tablet Take 1 tablet by mouth at bedtime as needed for anxiety. naproxen (NAPROSYN) 500 mg tablet Take 1 tablet by mouth twice daily as needed (for pain/inflammation). Take with food. nortriptyline (PAMELOR) 50 mg capsule Take 1 capsule by mouth daily at bedtime. diclofenac (VOLTAREN) 1 % topical gel Apply 2 g to affected area twice daily as needed. fluticasone (FLONASE) 50 mcg/actuation nasal spray Use 2 Sprays in each nostril once daily. Rinse mouth after use. promethazine (PHENERGAN) 25 mg tablet Take 1 tablet by mouth every 8 hours as needed. TRUE METRIX GLUCOSE METER test blood sugar DIRECTED SYMBICORT 160-4.5 mcg/actuation inhaler montelukast (SINGULAIR) 10 mg tablet lamoTRIgine (LAMICTAL) 200 mg tablet glucose 4 gram chewable tablet Take 3-4 tablets for hypoglycemia. Recheck blood sugar in 15 min after dose flash glucose scanning reader ([employer] ANA PAULA 2 READER) 1 Each once daily. lidocaine (ANECREAM5) crea Apply to affected area as needed. albuterol HFA (VENTOLIN HFA) 90 mcg/actuation inhaler Inhale 2 Puffs as instructed every 4 hours asneeded for wheezing/shortness of breath. ipratropium-albuterol (DUONEB) 0.5 mg-3 mg(2.5 mg base)/3 mL nebu INHALE 3 ML INSTRUCTED EVERY 4HOURS NEEDED FAMILY HISTORY Problem Relation Age of Onset Heart Mother Hypertension Father Psychiatry Father Bipolar Psychiatry Sister No Known Problems Brother No Known Problems Maternal Grandmother Cancer Maternal Grandfather Diabetes Paternal Grandmother Stroke Paternal Grandmother Great Grandmother No Known Problems Paternal Grandfather Cancer Paternal Aunt other ([place]) Paternal Aunt Great aunt Colon Cancer No Family History Social History Tobacco Use Smoking status: Every Day Packs/day: .5 Types: Cigarettes Start date: 05/17/1992 Smokeless tobacco: Never Vaping Use Vaping Use: Never used Substance Use Topics Alcohol use: Not Currently Comment: Seldom- uses once every couple months Drug use: Not Currently Comment: marijuana h/o, 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 PHYSICAL EXAM BP 128/76 Pulse 92 Resp 16 Wt (!) 143.3 kg (316 lb) LMP 07/09/2023 (Approximate) SpO2 97% BMI 55.98 kg/m General Appearance: well appearing, in no acute distress, alert Eyes: conjunctiva pink and moist, no icterus, sclera white, non-injected Lungs: Lungs clear to auscultation. No wheezing, rhonchi, rales. Heart: RRR without murmur, gallop, or rubs. No ectopy Abdomen: Abdomen soft, non-tender. Bowel sounds normal. No masses, organomegaly Health maintenance reviewed with patient: BP Controlled (<130/80) Never done Mammogram Screening Never done Colorectal Cancer Screening due on 03/02/2022 DTaP,Tdap,Td Vaccine(2 - Td or Tdap) due on 05/31/2024 Hepatitis B Vaccine(1 of 3 - 19+ 3-dose series) due on 05/31/2024 Spirometry due on 05/31/2024 Cervical Cancer Screening due on 05/31/2024 Covid-19 Vaccine(1 - 2022- season) due on 05/31/2024 Pneumococcal Vaccine(2 of 2 - PPSV23 or PCV20) due on 05/31/2024 Influenza Vaccine(1) due on 01/16/2024 HbA1C due on 04/05/2024 LDL Cholesterol due on 10/03/2024 Annual PCP Team Chronic Disease Visit due on 11/14/2024 Behavioral Health Screening Completed HIV Screening Completed HPV Vaccine Aged Out Urine Albumin:Creatinine Ratio Discontinued Dilated Retinal Exam Discontinued Diabetic Foot Exam Discontinued Hepatitis C Screening Discontinued DATA REVIEWED: Most recent labs and imaging results. ASSESSMENT/PLAN: 1. Epigastric pain - ICD9: 789.06, ICD10: R10.13 (primary diagnosis) Workup unremarkable and per patient symptoms resolved. Still concerned this is directly related to GLP-1 so will have her return from revaluation in 4 weeks. - OMEPRAZOLE 40 MG CAPSULE,DELAYED RELEASE 2. Morbid obesity with BMI of 50.0-59.9, adult (HCC) - ICD9: 278.01, V85.43, ICD10: E66.01, Z68.43 Weight increasing As above. May need to stop GLP-1 - Behavioral intervention and - Pharmacological intervention 3. Controlled type 2 diabetes mellitus without complication, without long-term current use of insulin (HCC) - ICD9: 250.00, ICD10: E11.9 - Controlled See #1 Prescription instructions reviewed with patient as applicable. Potential red flag symptoms discussed with the patient. Reviewed appropriate action plan to take if red flag symptoms occur. Patient agreeable to treatment plan. Caryn Lowery APRN.CNP documented in this encounterSt. [facility] Telephone encounter Note * Telephone Encounter - Hope Dickey LPN - 11/30/2023 1:22 PM EDT The patient has been identified by name and date of : Yes Pharmacy Caregiver verified no other encounters exist for this prescription request: Yes Caregiver confirmed with patient/requestor that no other refills are due, in the near future, with this provider at this time: Yes The last office visit in the department: 11/15/2023 Does the patient have a future office visit with this provider/department: Yes 12/03/2023 Requested Prescriptions Pending Prescriptions Disp Refills dulaglutide (TRULICITY) 0.75 mg/0.5 mL pen injector 2 mL 2 Sig: Inject 0.75 mg subcutaneously one time a week. Inject dose once per week. Discard Pen After Hope Dickey LPN November 30, 2023 1:[address] [facility]07-16-[facility] Miscellaneous Notes* Telephone Encounter - Hope Dickey LPN - 11/30/2023 1:22 PM EDT The patient has been identified by name and date of : Yes Pharmacy Caregiver verified no other encounters exist for this prescription request: Yes Caregiver confirmed with patient/requestor that no other refills are due, in the near future, with this provider at this time: Yes The last office visit in the department: 11/15/2023 Does the patient have a future office visit with this provider/department: Yes 12/03/2023 Requested Prescriptions Pending Prescriptions Disp Refills dulaglutide (TRULICITY) 0.75 mg/0.5 mL pen injector 2 mL 2 Sig: Inject 0.75 mg subcutaneously one time a week. Inject dose once per week. Discard Pen After Hope Dickey LPN November 30, 2023 1:23 PM documented in this encounterSt. [facility]07-[facility]-2024 Telephone encounter Note * Telephone Encounter - Linda Reyez APRN.CNP - 11/23/2023 9:56 AM EDT [address] [facility] Miscellaneous Notes* Telephone Encounter - Linda Reyez APRN.CNP - 11/23/2023 9:56 AM EDT Ordered. * Telephone Encounter - Shelia Houston LPN - 11/23/2023 9:21 AM EDT Darren is requesting a lab draw to test for exposure to syphilis. Would like to complete labs today. No need to call back, she will check My Chart for orders. documented in this encounterSt. [facility]07-[facility]-2024 Telephone encounter Note * Telephone Encounter - Shelia Houston LPN - 11/23/2023 9:21 AM EDT Darren is requesting a lab draw to test for exposure to syphilis. Would like to complete labs today. No need to call back, she will check My Chart for orders. [facility] Telephone encounter Note* Telephone Encounter - Katie Moon MA - 11/17/2023 10:55 AM EDT Patient scheduled and notified. [facility] Miscellaneous Notes* Telephone Encounter - Katie Moon MA - 11/17/2023 10:55 AM EDT Patient scheduled and notified. * Telephone Encounter - Caryn Lowery APRN.CNP - 11/17/2023 8:[address] patient in a walkin spot on WednesdayDecember 02. Also urine is without infection. Thank you Caryn Lowery APRN.CNP * Telephone Encounter - Chaparrita Paez RN - 11/16/2023 11:40 AM EDT Pt called and is notified of providers results and instructions. Pt voices understanding. Let Pt know to call Dr Gary and get in with him. Pt states Caryn Lowery CONCRETE PIPE MAKING MACHINE OPERATOR wanted Pt to get in with her in 2 weeks. Let Pt know that she didn't have any openings and Pt said she was supposed to look the day of her appointment, but must have gotten busy. Tried to put her in with Zeinab CHENG on 11/30/23, but Pt wants to check with Caryn. Pt also wanted to let provider know her stool samples were droppedoff today. Please call and advise. Chaparrita Paez RN * Telephone Encounter - Caryn Lowery APRN.CNP - 11/16/2023 10:18 AM EDT No acute concerns on blood work or urine. Still waiting on urine culture but urinalysis does not have signs of infection. Needs to follow back with GI as this is similar to episode last year. Was seeing Dr. Gary last year. Order placed for consult in case needed. Thank you Caryn Lowery APRN.CNP documented in this encounterSt. [facility]07-[facility]-2024 Telephone encounter Note * Telephone Encounter - Caryn Lowery APRN.CNP - 11/17/2023 8:[address] patient in a walkin spot on WednesdayDecember 02. Also urine is without infection. Thank you Caryn Lowery APRN.CNP [facility] Note* Addendum Note - Celeste Eric - 11/16/2023 3:58 PM EDTAddended by: CELESTE ERIC on: 11/16/2023 03:58 PM Modules accepted: Orders [facility]-02[facility] Miscellaneous Notes* Addendum Note - Celeste Eric - 11/16/2023 3:58 PM EDTAddended by: CELESTE ERIC on: 11/16/2023 03:58 PM Modules accepted: Orders documented in this encounterSt. [facility]07-02-2024 Telephone encounter Note * Telephone Encounter - Chaparrita Paez RN - 11/16/2023 11:40 AM EDT Pt called and is notified of providers results and instructions. Pt voices understanding. Let Pt know to call Dr Gary and get in with him. Pt states Caryn Lowery CONCRETE PIPE MAKING MACHINE OPERATOR wanted Pt to get in with her in 2 weeks. Let Pt know that she didn't have any openings and Pt said she was supposed to look the day of her appointment, but must have gotten busy. Tried to put her in with Zeinab CHENG on 11/30/23, but Pt wants to check with Caryn. Pt also wanted to let provider know her stool samples were droppedoff today. Please call and advise. Chaparrita Paez RN [facility] Telephone encounter Note* Telephone Encounter - Caryn Lowery APRN.CNP - 11/16/2023 10:18 AM EDT No acute concerns on blood work or urine. Still waiting on urine culture but urinalysis does not have signs of infection. Needs to follow back with GI as this is similar to episode last year. Was seeing Dr. Gary last year. Order placed for consult in case needed. Thank you Caryn Lowery APRN.JACINTA [facility] History of Present illness Narrative* Caryn Lowery APRN.CNP - 11/15/2023 1:45 PM EDT CC: Patient presents with: Recheck: 3 month follow up, n/v since Wednesday. Taking imodium and pepto bismol HPI Darren Reinoso is a 43 year old female who presents today for follow up but is concerned with GI symptoms. Started trulicity a few months ago for diabetes but has had symptoms of a GI bug for the past week with nausea, vomiting, abdominal pain, decreased appetite, fatigue, fever, and diarrhea. Skipped hertrulicity shot last with no improvement. Took one antidiarrheal capsule and peptobismol without improvement. 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 Also is foul smelling. Abdominal pain does not vary with eating. Still has her gallbladder, last EGD and colonoscopy in 2022 and unremarkable. Was seeing Dr. Gary for GI last year after abdominal pain without cause and was told to have further diagnostics but per patient she declined this as symptoms resolved. Concern was that GLP-1 at a higher dose possibly caused this so had been discontinued. Patient unable to exercise due to knee pain and was told she had to lose weight and keep diabetes under control for surgery. Wanted to restart GLP-1 at low dose to see if tolerated as the other symptoms had unknown cause and didn't occur until higher dose. Denies any known sick contacts, traveling, camping, swimming in [place], diet/med changes, alcohol intake, recent antibiotic use, chest pain, shortness of breath, syncope, weakness, edema, cough, wheezing, difficulty/pain with urinating, or palpitations. REVIEW OF SYSTEMS See HPI PAST MEDICAL HISTORY Diagnosis Date Adjustment disorder with depressed mood Anxiety state, unspecified Dysmenorrhea Hearing loss no aids Other and unspecified ovarian cyst Ovarian cyst RECOVERING ALCOHOL, MARIJUANA & COCAINE PAST SURGICAL HISTORY Procedure Laterality Date COLONOSCOPY FLX DX W/COLLJ SPEC WHEN PFRMD 03/02/2017 Colonoscopy HEMORRHOIDECTOMY INCISE FINGER TENDON SHEATH Right 2002 INCISE FINGER TENDON SHEATH Right 07/23/2021 Right thumb and middle trigger finger releases LAPS ABD PRTM&OMENTUM DX W/WO SPEC BR/WA SPX Laparoscopy, diagnostic LIG/TRNSXJ FLP TUBE ABDL/VAG APPR UNI/BI Tubal ligation OVARIAN CYSTECTOMY 1990 ovarian cysts removed PAST SURGICAL HISTORY OF 1999 ORIF left ankle PAST SURGICAL HISTORY OF right middle finger surgery, staph debridment. PAST SURGICAL HISTORY OF 07/28/2013 left carpal tunnel release RECTAL EXAM UNDER ANESTHESIA 2014 REVISE MEDIAN N/CARPAL TUNNEL SURG 06/08/2014 right capral tunnel release TNOT ELBOW LATERAL/MEDIAL DEBRIDE OPEN Right 04/02/2017 Right elbow extensor tendon debridement TNOT ELBOW LATERAL/MEDIAL DEBRIDE OPEN Left 05/18/2018 Left elbow extensor tendon debridement TONSILLECTOMY PRIMARY/SECONDARY <AGE 10 Tonsillectomy ALLERGIES Amoxicillin, Codeine, Darvocet A500 [Propoxyphene N-Acetaminophen], Propoxyphene, and Sulfa (Sulfonamide Antibiotics) MEDICATIONS furosemide (LASIX) 40 mg tablet^Take 1 tablet by mouth once daily.^Disp: 30 tablet^Rfl: 5 levothyroxine (SYNTHROID) 50 mcg tablet^TAKE 1 TABLET BY MOUTH DAILY TAKE ON EMPTY STOMACH. FOR THYROID^Disp: 30 tablet^Rfl: 5 celecoxib (CELEBREX) 100 mg capsule^Take 1 capsule by mouth once daily.^Disp: 30 capsule^Rfl: 1 cetirizine (ZYRTEC) 10 mg tablet^Take 1 tablet by mouth once daily.^Disp: 30 tablet^Rfl: 5 metoprolol tartrate, short acting, (LOPRESSOR) 25 mg tablet^Take 1 tablet by mouth two times a day.^Disp: 60 tablet^Rfl: 5 flash glucose sensor ([employer] ANA PAULA 2 SENSOR) kit^USE TO CHECK BLOOD SUGAR DAILY^Disp: 2 Each^Rfl: 3 Blood Pressure Monitor^1 Each as directed. Dispense with Extra Large Cuff^Disp: 1 Kit^Rfl: 0 Blood Pressure Kit-Extra Large kit^1 Each once daily.^Disp: 1 Each^Rfl: 1 lancets (UNILET SUPER THIN LANCETS) 30 gauge^Test blood sugar(s) 4 times daily.^Disp: 100 Each^Rfl:11 blood sugar diagnostic (TRUE METRIX GLUCOSE TEST STRIP) test strip^Test blood sugar(s) 4 times daily.^Disp: 50 Strip^Rfl: 11 omeprazole (PRILOSEC) 40 mg capsule^TAKE 1 CAPSULE BY MOUTH DAILY 1/2 HOUR BEFORE BREAKFAST^Disp: 30 capsule^Rfl: 5 potassium chloride (K-TAB) 10 mEq tablet^Take 1 tablet by mouth daily with breakfast. Take with lasix^Disp: 90 tablet^Rfl: 3 famotidine (PEPCID) 20 mg tablet^Take 1 tablet by mouth daily at bedtime.^Disp: 90 tablet^Rfl: 3 atorvastatin (LIPITOR) 10 mg tablet^Take 1 tablet by mouth once daily.^Disp: 90 tablet^Rfl: 3 hydrOXYzine HCl (ATARAX) 25 mg tablet^Take 1 tablet by mouth at bedtime as needed for anxiety.^Disp: 15 tablet^Rfl: 1 naproxen (NAPROSYN) 500 mg tablet^Take 1 tablet by mouth twice daily as needed (for pain/inflammation). Take with food.^Disp: 30 tablet^Rfl: 1 nortriptyline (PAMELOR) 50 mg capsule^Take 1 capsule by mouth daily at bedtime.^Disp: 30 capsule^Rfl: 5 diclofenac (VOLTAREN) 1 % topical gel^Apply 2 g to affected area twice daily as needed.^Disp: 50 g^Rfl: 5 fluticasone (FLONASE) 50 mcg/actuation nasal spray^Use 2 Sprays in each nostril once daily. Rinse mouth after use.^Disp: 1 Each^Rfl: 11 promethazine (PHENERGAN) 25 mg tablet^Take 1 tablet by mouth every 8 hours as needed.^Disp: 30 tablet^Rfl: 0 TRUE METRIX GLUCOSE METER^test blood sugar DIRECTED^Disp: ^Rfl: SYMBICORT 160-4.5 mcg/actuation inhaler^^Disp: ^Rfl: montelukast (SINGULAIR) 10 mg tablet^^Disp: ^Rfl: lamoTRIgine (LAMICTAL) 200 mg tablet^^Disp: ^Rfl: glucose 4 gram chewable tablet^Take 3-4 tablets for hypoglycemia. Recheck blood sugar in 15 min after dose^Disp: 30 tablet^Rfl: 0 flash glucose scanning reader ([employer] ANA PAULA 2 READER)^1 Each once daily.^Disp: 1 Each^Rfl: 0 lidocaine (ANECREAM5) crea^Apply to affected area as needed.^Disp: 28 g^Rfl: 1 albuterol HFA (VENTOLIN HFA) 90 mcg/actuation inhaler^Inhale 2 Puffs as instructed every 4 hours asneeded for wheezing/shortness of breath.^Disp: 18 g^Rfl: 2 ipratropium-albuterol (DUONEB) 0.5 mg-3 mg(2.5 mg base)/3 mL nebu^INHALE 3 ML INSTRUCTED EVERY 4HOURS NEEDED^Disp: 180 mL^Rfl: 2 dulaglutide (TRULICITY) 0.75 mg/0.5 mL pen injector^Inject 0.75 mg subcutaneously one time a week. Inject dose once per week. Discard Pen After^Disp: 2 mL^Rfl: 2 benzonatate (TESSALON PERLE) 100 mg capsule^Take 2 capsules by mouth three times a day as needed for cough.^Disp: 60 capsule^Rfl: 2 (Patient not taking: Reported on 11/15/2023) FAMILY HISTORY Problem Relation Age of Onset Heart Mother Hypertension Father Psychiatry Father Bipolar Psychiatry Sister No Known Problems Brother No Known Problems Maternal Grandmother Cancer Maternal Grandfather Diabetes Paternal Grandmother Stroke Paternal Grandmother Great Grandmother No Known Problems Paternal Grandfather Cancer Paternal Aunt other ([place]) Paternal Aunt Great aunt Colon Cancer No Family History Social History Tobacco Use Smoking status: Every Day Packs/day: .5 Types: Cigarettes Start date: 05/17/1992 Smokeless tobacco: Never Vaping Use Vaping Use: Never used Substance Use Topics Alcohol use: Not Currently Comment: Seldom- uses once every couple months Drug use: Not Currently Comment: marijuana h/o, 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 PHYSICAL EXAM BP 142/94 (BP Site: Left Arm) Pulse 98 Wt (!) 142.2 kg (313 lb 6.4 oz) LMP 07/09/2023 (Approximate) SpO2 95% BMI 55.52 kg/m General Appearance: in no acute distress, alert, ill and tired appearing. Skin: Skin color, texture, turgor normal for age; Eyes: conjunctiva pink and moist, no icterus, sclera white, non-injected Lungs: Lungs clear to auscultation. No wheezing, rhonchi, rales. Heart: RRR without murmur, gallop, or rubs. No ectopy Abdomen: Abdomen soft, Bowel sounds normal. Tenderness reported with grimacing to epigastric region. No guarding, rigidity, or rebound pain. Unable to deep palpate and with abdominal girth unsure on organ sizes. Health maintenance reviewed with patient: BP Controlled (<130/80) Never done Mammogram Screening Never done Colorectal Cancer Screening due on 03/02/2022 DTaP,Tdap,Td Vaccine(2 - Td or Tdap) due on 05/31/2024 Hepatitis B Vaccine(1 of 3 - 19+ 3-dose series) due on 05/31/2024 Spirometry due on 05/31/2024 Cervical Cancer Screening due on 05/31/2024 Covid-19 Vaccine(1 - 2022- season) due on 05/31/2024 Pneumococcal Vaccine(2 of 2 - PPSV23 or PCV20) due on 05/31/2024 Influenza Vaccine(1) due on 01/16/2024 HbA1C due on 04/05/2024 LDL Cholesterol due on 10/03/2024 Annual PCP Team Chronic Disease Visit due on 10/19/2024 Behavioral Health Screening Completed HIV Screening Completed HPV Vaccine Aged Out Urine Albumin:Creatinine Ratio Discontinued Dilated Retinal Exam Discontinued Diabetic Foot Exam Discontinued Hepatitis C Screening Discontinued DATA REVIEWED: No new labs ASSESSMENT/PLAN: 1. Epigastric pain - ICD9: 789.06, ICD10: R10.13 (primary diagnosis) - stop trulicity, if no infectious or other cause found for symptoms. Need to add glp-1 to list of allergies for adverse reaction concerns. - zofran as ordered - depending on results, may need to see GI again - follow up in 1-2 weeks. - go to ER for increase in abdominal pain, abdominal firmness, shortness of breath, fever, or any urgent concern. - US ABD RIGHT UPPER QUADRANT - COMPLETE BLOOD COUNT AND DIFFERENTIAL - COMPREHENSIVE METABOLIC PANEL - AMYLASE - LIPASE - C. DIFFICILE PCR - ENTERIC BACTERIAL PANEL BY PCR - URINALYSIS, WITH MICROSCOPIC - URINE CULTURE 2. Vomiting and diarrhea - ICD9: 787.03, 787.91, ICD10: R11.10, R19.7 As above - US ABD RIGHT UPPER QUADRANT - COMPLETE BLOOD COUNT AND DIFFERENTIAL - COMPREHENSIVE METABOLIC PANEL - AMYLASE - LIPASE - C. DIFFICILE PCR - ENTERIC BACTERIAL PANEL BY PCR - URINALYSIS, WITH MICROSCOPIC - URINE CULTURE Prescription instructions reviewed with patient as applicable. Potential red flag symptoms discussed with the patient. Reviewed appropriate action plan to take if red flag symptoms occur. Patient agreeable to treatment plan. Caryn Lowery APRN.CNP documented in this encounterSt. [facility]06-[facility] Telephone encounter Note * Telephone Encounter - Swati Uriostegui LPN - 11/01/2023 1:58 PM EDT Prescription Refill Information Prescription Refill Information The patient has been identified by name and date of : Yes Caregiver verified no other encounters exist for this prescription request: Yes Caregiver confirmed with patient/requestor that no other refills are due, in the near future, with this provider at this time: Yes The last office visit in the department: 10/20/23 Does the patient have a future office visit with this provider/department: Yes Requested Prescriptions Pending Prescriptions Disp Refills furosemide (LASIX) 40 mg tablet 30 tablet 5 Sig: Take 1 tablet by mouth once daily. levothyroxine (SYNTHROID) 50 mcg tablet 30 tablet 5 Sig: TAKE 1 TABLET BY MOUTH DAILY TAKE ON EMPTY STOMACH. FOR THYROID Swati Uriostegui LPN November 01, 2023 2:[address] [facility] Miscellaneous Notes* Telephone Encounter - Swati Uriostegui LPN - 11/01/2023 1:58 PM EDT Prescription Refill Information Prescription Refill Information The patient has been identified by name and date of : Yes Caregiver verified no other encounters exist for this prescription request: Yes Caregiver confirmed with patient/requestor that no other refills are due, in the near future, with this provider at this time: Yes The last office visit in the department: 10/20/23 Does the patient have a future office visit with this provider/department: Yes Requested Prescriptions Pending Prescriptions Disp Refills furosemide (LASIX) 40 mg tablet 30 tablet 5 Sig: Take 1 tablet by mouth once daily. levothyroxine (SYNTHROID) 50 mcg tablet 30 tablet 5 Sig: TAKE 1 TABLET BY MOUTH DAILY TAKE ON EMPTY STOMACH. FOR THYROID Swati Uriostegui LPN November 01, 2023 2:01 PM documented in this encounterSt. [facility]06-[facility] History of Present illness Narrative* Caryn Lowery APRN.ICT SUPPORT ENGINEER - 10/20/2023 5:37 PM EDT CC: Patient presents with: Recheck: Follow up HPI Darren Reinoso is a 43 year old female who presents today for follow up. Was seen last week under great amount of stress with infidelity of group home boyfriend and other life concerns. Following with Amina johnson for mental health and has a follow up appointment in a few weeks. Denies further feelings of harming herself. Was tested for STD exposure and negative. DIABETES MELLITUS: Ms. Reinoso denies excessive thirst or increased frequency of urination, chest pain or dyspnea , numbness, tingling or pain in extremities, new or unusual visual symptoms, low sugar/hypoglycemic reactions, weight loss/gain, lightheadedness/dizziness, and bowel changes/loose stools.Follows a diabetic diet most of the time. She is compliant with medication(s) and is tolerating med(s) without any side effects. She reports checking her glucose on a CGM with ranging in the 100s-140s. Patient's last HgA1C was Hemoglobin A1C (%) Date Value 10/04/2023 6.0 05/31/2023 6.8 04/24/2021 6.7 10/15/2020 6.1 Hemoglobin A1C (POCT) (%) Date Value 11/23/2022 6.2 01/23/2022 6.1 ) Chronic BLE pain she used to injections from pain mgmt for. REVIEW OF SYSTEMS See HPI PAST MEDICAL HISTORY Diagnosis Date Adjustment disorder with depressed mood Anxiety state, unspecified Dysmenorrhea Hearing loss no aids Other and unspecified ovarian cyst Ovarian cyst RECOVERING ALCOHOL, MARIJUANA & COCAINE PAST SURGICAL HISTORY Procedure Laterality Date COLONOSCOPY FLX DX W/COLLJ SPEC WHEN PFRMD 03/02/2017 Colonoscopy HEMORRHOIDECTOMY INCISE FINGER TENDON SHEATH Right 2002 INCISE FINGER TENDON SHEATH Right 07/23/2021 Right thumb and middle trigger finger releases LAPS ABD PRTM&OMENTUM DX W/WO SPEC BR/WA SPX Laparoscopy, diagnostic LIG/TRNSXJ FLP TUBE ABDL/VAG APPR UNI/BI Tubal ligation OVARIAN CYSTECTOMY 1990 ovarian cysts removed PAST SURGICAL HISTORY OF 1999 ORIF left ankle PAST SURGICAL HISTORY OF right middle finger surgery, staph debridment. PAST SURGICAL HISTORY OF 07/28/2013 left carpal tunnel release RECTAL EXAM UNDER ANESTHESIA 2014 REVISE MEDIAN N/CARPAL TUNNEL SURG 06/08/2014 right capral tunnel release TNOT ELBOW LATERAL/MEDIAL DEBRIDE OPEN Right 04/02/2017 Right elbow extensor tendon debridement TNOT ELBOW LATERAL/MEDIAL DEBRIDE OPEN Left 05/18/2018 Left elbow extensor tendon debridement TONSILLECTOMY PRIMARY/SECONDARY <AGE 12 Tonsillectomy ALLERGIES Amoxicillin, Codeine, Darvocet A500 [Propoxyphene N-Acetaminophen], Propoxyphene, and Sulfa (Sulfonamide Antibiotics) MEDICATIONS dulaglutide (TRULICITY) 0.75 mg/0.5 mL pen injector^Inject 0.75 mg subcutaneously one time a week. Inject dose once per week. Discard Pen After^Disp: 2 mL^Rfl: 2 celecoxib (CELEBREX) 100 mg capsule^Take 1 capsule by mouth once daily.^Disp: 30 capsule^Rfl: 1 cetirizine (ZYRTEC) 10 mg tablet^Take 1 tablet by mouth once daily.^Disp: 30 tablet^Rfl: 5 metoprolol tartrate, short acting, (LOPRESSOR) 25 mg tablet^Take 1 tablet by mouth two times a day.^Disp: 60 tablet^Rfl: 5 flash glucose sensor (FREESTYLE ANA PAULA 2 SENSOR) kit^USE TO CHECK BLOOD SUGAR DAILY^Disp: 2 Each^Rfl: 3 Blood Pressure Monitor^1 Each as directed. Dispense with Extra Large Cuff^Disp: 1 Kit^Rfl: 0 Blood Pressure Kit-Extra Large kit^1 Each once daily.^Disp: 1 Each^Rfl: 1 lancets (UNILET SUPER THIN LANCETS) 30 gauge^Test blood sugar(s) 4 times daily.^Disp: 100 Each^Rfl:11 blood sugar diagnostic (TRUE METRIX GLUCOSE TEST STRIP) test strip^Test blood sugar(s) 4 times daily.^Disp: 50 Strip^Rfl: 11 omeprazole (PRILOSEC) 40 mg capsule^TAKE 1 CAPSULE BY MOUTH DAILY 1/2 HOUR BEFORE BREAKFAST^Disp: 30 capsule^Rfl: 5 levothyroxine (SYNTHROID) 50 mcg tablet^TAKE 1 TABLET BY MOUTH DAILY TAKE ON EMPTY STOMACH. FOR THYROID^Disp: 30 tablet^Rfl: 5 furosemide (LASIX) 40 mg tablet^Take 1 tablet by mouth once daily.^Disp: 30 tablet^Rfl: 5 potassium chloride (K-TAB) 10 mEq tablet^Take 1 tablet by mouth daily with breakfast. Take with lasix^Disp: 90 tablet^Rfl: 3 famotidine (PEPCID) 20 mg tablet^Take 1 tablet by mouth daily at bedtime.^Disp: 90 tablet^Rfl: 3 benzonatate (TESSALON PERLE) 100 mg capsule^Take 2 capsules by mouth three times a day as needed for cough.^Disp: 60 capsule^Rfl: 2 (Patient not taking: Reported on 07/14/2023) atorvastatin (LIPITOR) 10 mg tablet^Take 1 tablet by mouth once daily.^Disp: 90 tablet^Rfl: 3 hydrOXYzine HCl (ATARAX) 25 mg tablet^Take 1 tablet by mouth at bedtime as needed for anxiety.^Disp: 15 tablet^Rfl: 1 naproxen (NAPROSYN) 500 mg tablet^Take 1 tablet by mouth twice daily as needed (for pain/inflammation). Take with food.^Disp: 30 tablet^Rfl: 1 nortriptyline (PAMELOR) 50 mg capsule^Take 1 capsule by mouth daily at bedtime.^Disp: 30 capsule^Rfl: 5 diclofenac (VOLTAREN) 1 % topical gel^Apply 2 g to affected area twice daily as needed.^Disp: 50 g^Rfl: 5 fluticasone (FLONASE) 50 mcg/actuation nasal spray^Use 2 Sprays in each nostril once daily. Rinse mouth after use.^Disp: 1 Each^Rfl: 11 promethazine (PHENERGAN) 25 mg tablet^Take 1 tablet by mouth every 8 hours as needed.^Disp: 30 tablet^Rfl: 0 TRUE METRIX GLUCOSE METER^test blood sugar DIRECTED^Disp: ^Rfl: SYMBICORT 160-4.5 mcg/actuation inhaler^^Disp: ^Rfl: montelukast (SINGULAIR) 10 mg tablet^^Disp: ^Rfl: lamoTRIgine (LAMICTAL) 200 mg tablet^^Disp: ^Rfl: glucose 4 gram chewable tablet^Take 3-4 tablets for hypoglycemia. Recheck blood sugar in 15 min after dose^Disp: 30 tablet^Rfl: 0 flash glucose scanning reader ([employer] ANA PAULA 2 READER)^1 Each once daily.^Disp: 1 Each^Rfl: 0 lidocaine (ANECREAM5) crea^Apply to affected area as needed.^Disp: 28 g^Rfl: 1 albuterol HFA (VENTOLIN HFA) 90 mcg/actuation inhaler^Inhale 2 Puffs as instructed every 4 hours asneeded for wheezing/shortness of breath.^Disp: 18 g^Rfl: 2 ipratropium-albuterol (DUONEB) 0.5 mg-3 mg(2.5 mg base)/3 mL nebu^INHALE 3 ML INSTRUCTED EVERY 4HOURS NEEDED^Disp: 180 mL^Rfl: 2 FAMILY HISTORY Problem Relation Age of Onset Heart Mother Hypertension Father Psychiatry Father Bipolar Psychiatry Sister No Known Problems Brother No Known Problems Maternal Grandmother Cancer Maternal Grandfather Diabetes Paternal Grandmother Stroke Paternal Grandmother Great Grandmother No Known Problems Paternal Grandfather Cancer Paternal Aunt other ([place]) Paternal Aunt Great aunt Colon Cancer No Family History Social History Tobacco Use Smoking status: Every Day Packs/day: .5 Types: Cigarettes Start date: 05/17/1992 Smokeless tobacco: Never Vaping Use Vaping Use: Never used Substance Use Topics Alcohol use: Not Currently Comment: Seldom- uses once every couple months Drug use: Not Currently Comment: marijuana h/o, 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 PHYSICAL EXAM BP (P) 140/80 Pulse (P) 88 Resp (P) 16 Wt (!) (P) 144.2 kg (318 lb) LMP 07/09/2023 (Approximate) SpO2 (P) 98% BMI (P) 56.33 kg/m Appearance: well dressed well groomed, cooperative, and pleasant Behavior: good eye contact Speech: fluent and coherent Mood: irritable, anxious, and angry Affect: appropriate Perceptions: none Thought process: normal Thought Content: normal Intelligence level: normal Insight: good Judgment: good Lungs: Lungs clear to auscultation. No wheezing, rhonchi, rales. Heart: RRR without murmur, gallop, or rubs. No ectopy Health maintenance reviewed with patient: BP Controlled (<130/80) Never done Mammogram Screening Never done Colorectal Cancer Screening due on 03/02/2022 DTaP,Tdap,Td Vaccine(2 - Td or Tdap) due on 05/31/2024 Hepatitis B Vaccine(1 of 3 - 19+ 3-dose series) due on 05/31/2024 Spirometry due on 05/31/2024 Pap Testing due on 05/31/2024 HPV Testing due on 05/31/2024 Covid-19 Vaccine( - season) due on 05/31/2024 Pneumococcal Vaccine(2 of 2 - PPSV23 or PCV20) due on 05/31/2024 HbA1C due on 04/05/2024 LDL Cholesterol due on 10/03/2024 Annual PCP Team Chronic Disease Visit due on 10/12/2024 Influenza Vaccine Completed Behavioral Health Screening Completed HIV Screening Completed HPV Vaccine Aged Out Urine Albumin:Creatinine Ratio Discontinued Dilated Retinal Exam Discontinued Diabetic Foot Exam Discontinued Hepatitis C Screening Discontinued DATA REVIEWED: Most recent labs Need to follow up to review further blood work ASSESSMENT/PLAN: 1. Adjustment disorder with depressed mood - ICD9: 309.0, ICD10: F43.21 (primary diagnosis) Stable at this time and denies any concern for self harm or being a harm to others Continue with psychiatry - Reviewed concept of neurochemical imbalance wth depression/anxiety, treatment options and benefits of counseling in combination with medication. Also reviewed benefits of sleep hygeine, diet and exercise - Instructed patient to contact office or [id number] after-hours promptly should condition worsen or any new symptoms appear. - [facility] and after hours crisis line 2. STD exposure - ICD9: V01.6, ICD10: Z20.2 Negative Patient still with boyfriend so may need retested if any other concerns are found 3. Controlled type 2 diabetes mellitus without complication, without long-term current use of insulin (HCC) - ICD9: 250.00, ICD10: E11.9 - Controlled - Continue current medications - Blood glucose monitoring on a once daily schedule - Counseled on healthy diet and regular exercise - Discussed need for and benefit of weight loss. No weight on file for this encounter. Prescription instructions reviewed with patient as applicable. Potential red flag symptoms discussed with the patient. Reviewed appropriate action plan to take if red flag symptoms occur. Patient agreeable to treatment plan. Caryn Lowery APRN.CNP documented in this encounterSt. [facility]-29-[facility] History of Present illness Narrative* Caryn Lowery APRN.CNP - 10/13/2023 11:13 AM EDT CC: Patient presents with: Follow Up HPI Darren Reinoso is a 43 year old female who presents today for routine follow up ut has had a lot of life altering situations in the last few months. So visit mainly focused on mental health. Best friend recently, mother with cancer, unable to see grandchild, and now boyfriend of 15 years found to have syphilis in latent stage. Has not had sexual contact in 8 months but unsurewhen he contracted this. Boyfriend does admit to having unprotected sex with prostitutes. Denies any vaginal drainage rashes, fever, or abdominal pain. Patient understandably upset with all she is dealing with. Last spoke to her counselor in August andis doesn't want to talk to her. Indicates she doesn't want to go back to inpatient psych care. Denies homicidal or suicidal plans but does admit to transient thoughts she could just shoot herself to end this. Denies any plan and states she would never hurt herself. Also denies having access to [facility]. Alcohol use: does not drink any alcohol Drug use: No Appetite: good Started talking to her aunt who is reported as a clergy woman and trying to get everything figured out but had just found out the truth of her group home boyfriend in the past few days. Tried to review blood work but patient from tearful to frustrated and not wanting to review at thistime. - will have her return in 2 weeks to review these REVIEW OF SYSTEMS See HPI PAST MEDICAL HISTORY Diagnosis Date Adjustment disorder with depressed mood Anxiety state, unspecified Dysmenorrhea Hearing loss no aids Other and unspecified ovarian cyst Ovarian cyst RECOVERING ALCOHOL, MARIJUANA & COCAINE PAST SURGICAL HISTORY Procedure Laterality Date COLONOSCOPY FLX DX W/COLLJ SPEC WHEN PFRMD 03/02/2017 Colonoscopy HEMORRHOIDECTOMY INCISE FINGER TENDON SHEATH Right 2002 INCISE FINGER TENDON SHEATH Right 07/23/2021 Right thumb and middle trigger finger releases LAPS ABD PRTM&OMENTUM DX W/WO SPEC BR/WA SPX Laparoscopy, diagnostic LIG/TRNSXJ FLP TUBE ABDL/VAG APPR UNI/BI Tubal ligation OVARIAN CYSTECTOMY 1990 ovarian cysts removed PAST SURGICAL HISTORY OF 1999 ORIF left ankle PAST SURGICAL HISTORY OF right middle finger surgery, staph debridment. PAST SURGICAL HISTORY OF 07/28/2013 left carpal tunnel release RECTAL EXAM UNDER ANESTHESIA 2014 REVISE MEDIAN N/CARPAL TUNNEL SURG 06/08/2014 right capral tunnel release TNOT ELBOW LATERAL/MEDIAL DEBRIDE OPEN Right 04/02/2017 Right elbow extensor tendon debridement TNOT ELBOW LATERAL/MEDIAL DEBRIDE OPEN Left 05/18/2018 Left elbow extensor tendon debridement TONSILLECTOMY PRIMARY/SECONDARY <AGE 12 Tonsillectomy ALLERGIES Amoxicillin, Codeine, Darvocet A500 [Propoxyphene N-Acetaminophen], Propoxyphene, and Sulfa (Sulfonamide Antibiotics) MEDICATIONS cetirizine (ZYRTEC) 10 mg tablet^Take 1 tablet by mouth once daily.^Disp: 30 tablet^Rfl: 5 metoprolol tartrate, short acting, (LOPRESSOR) 25 mg tablet^Take 1 tablet by mouth two times a day.^Disp: 60 tablet^Rfl: 5 flash glucose sensor (FREESTYLE ANA PAULA 2 SENSOR) kit^USE TO CHECK BLOOD SUGAR DAILY^Disp: 2 Each^Rfl: 3 Blood Pressure Monitor^1 Each as directed. Dispense with Extra Large Cuff^Disp: 1 Kit^Rfl: 0 Blood Pressure Kit-Extra Large kit^1 Each once daily.^Disp: 1 Each^Rfl: 1 dulaglutide (TRULICITY) 0.75 mg/0.5 mL pen injector^Inject 0.75 mg subcutaneously one time a week. Inject dose once per week. Discard Pen After^Disp: 2 mL^Rfl: 2 lancets (UNILET SUPER THIN LANCETS) 30 gauge^Test blood sugar(s) 4 times daily.^Disp: 100 Each^Rfl:11 blood sugar diagnostic (TRUE METRIX GLUCOSE TEST STRIP) test strip^Test blood sugar(s) 4 times daily.^Disp: 50 Strip^Rfl: 11 omeprazole (PRILOSEC) 40 mg capsule^TAKE 1 CAPSULE BY MOUTH DAILY 1/2 HOUR BEFORE BREAKFAST^Disp: 30 capsule^Rfl: 5 levothyroxine (SYNTHROID) 50 mcg tablet^TAKE 1 TABLET BY MOUTH DAILY TAKE ON EMPTY STOMACH. FOR THYROID^Disp: 30 tablet^Rfl: 5 furosemide (LASIX) 40 mg tablet^Take 1 tablet by mouth once daily.^Disp: 30 tablet^Rfl: 5 potassium chloride (K-TAB) 10 mEq tablet^Take 1 tablet by mouth daily with breakfast. Take with lasix^Disp: 90 tablet^Rfl: 3 famotidine (PEPCID) 20 mg tablet^Take 1 tablet by mouth daily at bedtime.^Disp: 90 tablet^Rfl: 3 benzonatate (TESSALON PERLE) 100 mg capsule^Take 2 capsules by mouth three times a day as needed for cough.^Disp: 60 capsule^Rfl: 2 (Patient not taking: Reported on 07/14/2023) atorvastatin (LIPITOR) 10 mg tablet^Take 1 tablet by mouth once daily.^Disp: 90 tablet^Rfl: 3 hydrOXYzine HCl (ATARAX) 25 mg tablet^Take 1 tablet by mouth at bedtime as needed for anxiety.^Disp: 15 tablet^Rfl: 1 naproxen (NAPROSYN) 500 mg tablet^Take 1 tablet by mouth twice daily as needed (for pain/inflammation). Take with food.^Disp: 30 tablet^Rfl: 1 nortriptyline (PAMELOR) 50 mg capsule^Take 1 capsule by mouth daily at bedtime.^Disp: 30 capsule^Rfl: 5 diclofenac (VOLTAREN) 1 % topical gel^Apply 2 g to affected area twice daily as needed.^Disp: 50 g^Rfl: 5 fluticasone (FLONASE) 50 mcg/actuation nasal spray^Use 2 Sprays in each nostril once daily. Rinse mouth after use.^Disp: 1 Each^Rfl: 11 promethazine (PHENERGAN) 25 mg tablet^Take 1 tablet by mouth every 8 hours as needed.^Disp: 30 tablet^Rfl: 0 TRUE METRIX GLUCOSE METER^test blood sugar DIRECTED^Disp: ^Rfl: SYMBICORT 160-4.5 mcg/actuation inhaler^^Disp: ^Rfl: montelukast (SINGULAIR) 10 mg tablet^^Disp: ^Rfl: lamoTRIgine (LAMICTAL) 200 mg tablet^^Disp: ^Rfl: glucose 4 gram chewable tablet^Take 3-4 tablets for hypoglycemia. Recheck blood sugar in 15 min after dose^Disp: 30 tablet^Rfl: 0 flash glucose scanning reader ([employer] ANA PAULA 2 READER)^1 Each once daily.^Disp: 1 Each^Rfl: 0 lidocaine (ANECREAM5) crea^Apply to affected area as needed.^Disp: 28 g^Rfl: 1 albuterol HFA (VENTOLIN HFA) 90 mcg/actuation inhaler^Inhale 2 Puffs as instructed every 4 hours asneeded for wheezing/shortness of breath.^Disp: 18 g^Rfl: 2 ipratropium-albuterol (DUONEB) 0.5 mg-3 mg(2.5 mg base)/3 mL nebu^INHALE 3 ML INSTRUCTED EVERY 4HOURS NEEDED^Disp: 180 mL^Rfl: 2 FAMILY HISTORY Problem Relation Age of Onset Heart Mother Hypertension Father Psychiatry Father Bipolar Psychiatry Sister No Known Problems Brother No Known Problems Maternal Grandmother Cancer Maternal Grandfather Diabetes Paternal Grandmother Stroke Paternal Grandmother Great Grandmother No Known Problems Paternal Grandfather Cancer Paternal Aunt other ([place]) Paternal Aunt Great aunt Colon Cancer No Family History Social History Tobacco Use Smoking status: Every Day Packs/day: .5 Types: Cigarettes Start date: 05/17/1992 Smokeless tobacco: Never Vaping Use Vaping Use: Never used Substance Use Topics Alcohol use: Not Currently Comment: Seldom- uses once every couple months Drug use: Not Currently Comment: marijuana h/o, 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 PHYSICAL EXAM BP 140/72 (BP Site: Left Arm, BP Position: Sitting, BP Cuff Size: Large Adult) Pulse 101 Resp 16 Ht 160 cm (5' 3) Wt (!) 142.9 kg (315 lb) LMP 07/09/2023 (Approximate) SpO2 95% BMI 55.80 kg/m Appearance: well dressed well groomed and tense posture Behavior: good eye contact Speech: fluent and coherent Mood: irritable, angry, and depressed Affect: appropriate Perceptions: none Thought process: goal directed Thought Content: suicidal ideation without plan or access to firearms Intelligence level: normal Insight: good Judgment: fair ASSESSMENT/PLAN: 1. Adjustment disorder with depressed mood - ICD9: 309.0, ICD10: F43.21 (primary diagnosis) Uncontrolled with recent concerns and situations. Patient without concrete plans to harm herself, or access to firearms. Still with the intensity of her emotions she needs to follow with her psych team. Patient to call for appointment but I am also reaching out to Amina Elizabeth to update on my concerns with this patient. Voicemail left. - Reviewed concept of neurochemical imbalance wth depression/anxiety, treatment options and benefits of counseling in combination with medication. Also reviewed benefits of sleep hygeine, diet and exercise - Follow-up in 2 weeks or sooner as needed - Instructed patient to contact office or [id number] after-hours promptly should condition worsen or any new symptoms appear. - [facility] and after hours crisis line 2. STD exposure - ICD9: V01.6, ICD10: Z20.2 - SYPHILIS TOTAL W/REFLEX - GONORRHEA/CHLAMYDIA NAAT - HIV 1/2 COMBO WITH REFLEX TO DIFFERENTIATION Prescription instructions reviewed with patient as applicable. Potential red flag symptoms discussed with the patient. Reviewed appropriate action plan to take if red flag symptoms occur. Patient agreeable to treatment plan Caryn Lowery APRN.JACINTA documented in this encounterSt. [facility]04-19-2024 Miscellaneous Notes* Telephone Encounter - Kelli Mendoza RN - 09/03/2023 8:22 AM EDT Patient has been identified by name and date of : Pharmacy phones for refill(s): Requested Prescriptions Pending Prescriptions Disp Refills cetirizine (ZYRTEC) 10 mg tablet 30 tablet 5 Sig: Take 1 tablet by mouth once daily. metoprolol tartrate, short acting, (LOPRESSOR) 25 mg tablet 60 tablet 5 Sig: Take 1 tablet by mouth two times a day. flash glucose sensor (FREESTYLE ANA PAULA 2 SENSOR) kit 2 Each 3 Sig: USE TO CHECK BLOOD SUGAR DAILY Date of last office visit in primary care: 07/15/2023 Date of next office visit in primary care: 10/13/2023 Please advise. Thank you. Kelli Mendoza RN. documented in this encounterSt. [facility]04-10-2024 Miscellaneous Notes* Telephone Encounter - Tete Gonzalez RN - 08/25/2023 9:11 AM EDT Triage Protocol Recommends: See provider within 24 hours for evaluation. Pt declining to make appt.Agreeable to EC today. Reason for Disposition Sty suspected (small, painful red lump present on lid margin [1] Eyelid is very swollen AND [2] no fever Answer Assessment - Initial Assessment Questions Patient calling with concern for possible left eye stye. Began 2-3 days ago. Using OTC stye medication. Left eyelid swollen and itchy. Has discomfort to inner canthus of left eye, some drainage to left eye this morning-used warm cloth which improved condition. Denies any redness to left eye. 1. ONSET: 2-3 days ago 2. LOCATION: left eye lid 3. SEVERITY: moderate 4. ITCHING: yes 5. PAIN: mild/moderate discomfort 6. FEVER: denies but also states felt a little warm last night 7. CAUSE: Pt thinks she may have a stye 8. RECURRENT SYMPTOM: has had stye before 9. OTHER SYMPTOMS:denies blurred vision, + eye discharge this morning, no rash, chronic nasal congestion in mornings due to wearing of CPAP at night 10. : no Answer Assessment - Initial Assessment Questions Patient calling with concern for possible left eye stye. Began 2-3 days ago. Using OTC stye medication. Left eyelid swollen and itchy. Has discomfort to inner canthus of left eye, some drainage to left eye this morning-used warm cloth which improved condition. Denies any redness to left eye. 1. ONSET: 2-3 days ago 2. LOCATION: left eye lid 3. SEVERITY: moderate 4. ITCHING: yes 5. PAIN: mild/moderate discomfort 6. FEVER: denies but also states felt a little warm last night 7. CAUSE: Pt thinks she may have a stye 8. RECURRENT SYMPTOM: has had stye before 9. OTHER SYMPTOMS:denies blurred vision, + eye discharge this morning, no rash, chronic nasal congestion in mornings due to wearing of CPAP at night 10. : no Protocols used: Eye - [id number], [id number] documented in this encounterSt. Anthony'S Hospital04-03-2024 Miscellaneous Notes* Telephone Encounter - Caryn Lowery APRN.CNP - 08/18/2023 9:18 AM EDT Order sent Caryn Lowery APRN.CNP * Telephone Encounter - Marita Gonzalez RN - 08/17/2023 3:39 PM EDT Deepali with [facility] calls to report that BP kit order needs to be re-submitted for a blood pressure monitor. Pended with previous diagnosis. Order can be e-scribed or faxed. Marita Gonzalez RN documented in this encounterSt. Anthony'S Hospital04-02-2024 Miscellaneous Notes* Telephone Encounter - Marita Gonzalez RN - 08/17/2023 3:18 PM EDT Patient returns call and reports [facility] would be fine. Orders and demographics faxed to [facility] per patient request. Marita Gonzalez RN * Telephone Encounter - Tarah Haider LPN - 08/17/2023 3:01 PM EDT Left a message for pt to call the office to see where she would like the order for the large blood pressure dit to go to. [facility] can not provide. They can not bill for this. Asking pt if she would like this to go to [facility]. Tarah Haider LPN documented in this encounterSt. Anthony'S Hospital03-26-2024 Miscellaneous Notes* Telephone Encounter - Hope Dickey LPN - 08/10/2023 8:39 AM EDT Patient has been identified by name and date of : Pharmacy phones for refill(s): Requested Prescriptions Pending Prescriptions Disp Refills dulaglutide (TRULICITY) 0.75 mg/0.5 mL pen injector 2 mL 2 Sig: Inject 0.75 mg subcutaneously one time a week. Inject dose once per week. Discard Pen After Date of last office visit in primary care: 07/15/2023 Date of next office visit in primary care: 10/13/2023 Please advise. Thank you. Hope Dickey LPN. documented in this encounterSt. Anthony'S Hospital03-14-2024 Miscellaneous Notes* Telephone Encounter - Tarah Haider LPN - 07/29/2023 3:13 PM EDT Patient has been identified by name and date of : Yes, Provider Dr. Phillip Date 07/29/23 Time 3:14 pm Pharmacy phones for refill(s): Requested Prescriptions Pending Prescriptions Disp Refills lancets (UNILET SUPER THIN LANCETS) 30 gauge [Pharmacy Med Name: Unilet Super Thin Lancets 30 gauge] 100 Each 11 Sig: Test blood sugar(s) 4 times daily. blood sugar diagnostic (TRUE METRIX GLUCOSE TEST STRIP) test strip [Pharmacy Med Name: True Metrix Glucose Test Strip] 50 Strip 11 Sig: Test blood sugar(s) 4 times daily. Date of last office visit in primary care: 07/15/2023 Date of next office visit in primary care: 10/13/2023 Thank you. Tarah Haider LPN. documented in this encounterSt. Anthony'S Hospital02-29-2024 History of Present illness Narrative* Caryn Lowery, ARCHITECTURAL DRAFTSMAN.ICT SUPPORT ENGINEER - 07/15/2023 2:06 PM EST CC: Patient presents with: Recheck: DM follow up HPI Darren Reinoso is a 43 year old female who presents today for follow up on Trulicity. Was restarted on Trulicity and started 2 weeks ago. Was on previously over a year ago but had low blood sugars and did not tolerate high doses. Ms. Reinoso denies excessive thirst or increased frequency of urination, chest pain or dyspnea , numbness, tingling or pain in extremities, new or unusual visual symptoms, low sugar/hypoglycemic reactions, weight loss/gain, lightheadedness/dizziness, and bowel changes/loose stools. Follows a diabetic diet most of the time. She is compliant with medication(s) and is tolerating med(s) without any side effects. She reports checking her glucose on a once a d ay schedule with sugars in the 260s range but has been on prednisone for a rash. Patient's last HgA1C was Hemoglobin A1C (%) Date Value 05/31/2023 6.8 02/25/2023 6.1 04/24/2021 6.7 10/15/2020 6.1 Hemoglobin A1C (POCT) (%) Date Value 11/23/2022 6.2 01/23/2022 6.1 ) Denies any abdominal pain, low blood sugars, nausea, bowel changes. Is able to eat without difficulty. REVIEW OF SYSTEMS See HPI PAST MEDICAL HISTORY Diagnosis Date Adjustment disorder with depressed mood Anxiety state, unspecified Dysmenorrhea Hearing loss no aids Other and unspecified ovarian cyst Ovarian cyst RECOVERING ALCOHOL, MARIJUANA & COCAINE PAST SURGICAL HISTORY Procedure Laterality Date COLONOSCOPY FLX DX W/COLLJ SPEC WHEN PFRMD 03/02/2017 Colonoscopy HEMORRHOIDECTOMY INCISE FINGER TENDON SHEATH Right 2002 INCISE FINGER TENDON SHEATH Right 07/23/2021 Right thumb and middle trigger finger releases LAPS ABD PRTM&OMENTUM DX W/WO SPEC BR/WA SPX Laparoscopy, diagnostic LIG/TRNSXJ FLP TUBE ABDL/VAG APPR UNI/BI Tubal ligation OVARIAN CYSTECTOMY 1990 ovarian cysts removed PAST SURGICAL HISTORY OF 1999 ORIF left ankle PAST SURGICAL HISTORY OF right middle finger surgery, staph debridment. PAST SURGICAL HISTORY OF 07/28/2013 left carpal tunnel release RECTAL EXAM UNDER ANESTHESIA 2015 REVISE MEDIAN N/CARPAL TUNNEL SURG 06/08/2014 right capral tunnel release TNOT ELBOW LATERAL/MEDIAL DEBRIDE OPEN Right 04/02/2017 Right elbow extensor tendon debridement TNOT ELBOW LATERAL/MEDIAL DEBRIDE OPEN Left 05/18/2018 Left elbow extensor tendon debridement TONSILLECTOMY PRIMARY/SECONDARY <AGE 12 Tonsillectomy ALLERGIES Amoxicillin, Codeine, Darvocet A500 [Propoxyphene N-Acetaminophen], Propoxyphene, and Sulfa (Sulfonamide Antibiotics) MEDICATIONS cetirizine (ZYRTEC) 10 mg tablet^Take 1 tablet by mouth once daily for 7 days.^Disp: 7 tablet^Rfl: 0 triamcinolone acetonide (KENALOG) 0.1 % cream^Apply 1 application to affected area two times a day for 7 days. Apply to affected area.^Disp: 15 g^Rfl: 0 omeprazole (PRILOSEC) 40 mg capsule^TAKE 1 CAPSULE BY MOUTH DAILY 1/2 HOUR BEFORE BREAKFAST^Disp: 30 capsule^Rfl: 5 dulaglutide (TRULICITY) 0.75 mg/0.5 mL pen injector^Inject 0.75 mg subcutaneously one time a week. Inject dose once per week. Discard Pen After^Disp: 2 mL^Rfl: 2 flash glucose sensor (FREESTYLE ANA PAULA 2 SENSOR) kit^USE TO CHECK BLOOD SUGAR DAILY^Disp: 2 Each^Rfl: 3 levothyroxine (SYNTHROID) 50 mcg tablet^TAKE 1 TABLET BY MOUTH DAILY TAKE ON EMPTY STOMACH. FOR THYROID^Disp: 30 tablet^Rfl: 5 furosemide (LASIX) 40 mg tablet^Take 1 tablet by mouth once daily.^Disp: 30 tablet^Rfl: 5 potassium chloride (K-TAB) 10 mEq tablet^Take 1 tablet by mouth daily with breakfast. Take with lasix^Disp: 90 tablet^Rfl: 3 famotidine (PEPCID) 20 mg tablet^Take 1 tablet by mouth daily at bedtime.^Disp: 90 tablet^Rfl: 3 benzonatate (TESSALON PERLE) 100 mg capsule^Take 2 capsules by mouth three times a day as needed for cough.^Disp: 60 capsule^Rfl: 2 (Patient not taking: Reported on 07/14/2023) metoprolol tartrate, short acting, (LOPRESSOR) 25 mg tablet^Take 1 tablet by mouth two times a day.^Disp: 60 tablet^Rfl: 5 atorvastatin (LIPITOR) 10 mg tablet^Take 1 tablet by mouth once daily.^Disp: 90 tablet^Rfl: 3 hydrOXYzine HCl (ATARAX) 25 mg tablet^Take 1 tablet by mouth at bedtime as needed for anxiety.^Disp: 15 tablet^Rfl: 1 naproxen (NAPROSYN) 500 mg tablet^Take 1 tablet by mouth twice daily as needed (for pain/inflammation). Take with food.^Disp: 30 tablet^Rfl: 1 nortriptyline (PAMELOR) 50 mg capsule^Take 1 capsule by mouth daily at bedtime.^Disp: 30 capsule^Rfl: 5 diclofenac (VOLTAREN) 1 % topical gel^Apply 2 g to affected area twice daily as needed.^Disp: 50 g^Rfl: 5 fluticasone (FLONASE) 50 mcg/actuation nasal spray^Use 2 Sprays in each nostril once daily. Rinse mouth after use.^Disp: 1 Each^Rfl: 11 promethazine (PHENERGAN) 25 mg tablet^Take 1 tablet by mouth every 8 hours as needed.^Disp: 30 tablet^Rfl: 0 TRUE METRIX GLUCOSE METER^test blood sugar DIRECTED^Disp: ^Rfl: SYMBICORT 160-4.5 mcg/actuation inhaler^^Disp: ^Rfl: cetirizine (ZYRTEC) 10 mg tablet^^Disp: ^Rfl: montelukast (SINGULAIR) 10 mg tablet^^Disp: ^Rfl: lamoTRIgine (LAMICTAL) 200 mg tablet^^Disp: ^Rfl: blood sugar diagnostic (BLOOD GLUCOSE TEST) test strip^Test blood sugar(s) 4 times daily. Dx: Type 2 DM - Controlled E11.9 Insulin: No^Disp: 50 Strip^Rfl: 11 glucose 4 gram chewable tablet^Take 3-4 tablets for hypoglycemia. Recheck blood sugar in 15 min after dose^Disp: 30 tablet^Rfl: 0 flash glucose scanning reader ([employer] ANA PAULA 2 READER)^1 Each once daily.^Disp: 1 Each^Rfl: 0 lidocaine (ANECREAM5) crea^Apply to affected area as needed.^Disp: 28 g^Rfl: 1 albuterol HFA (VENTOLIN HFA) 90 mcg/actuation inhaler^Inhale 2 Puffs as instructed every 4 hours asneeded for wheezing/shortness of breath.^Disp: 18 g^Rfl: 2 ipratropium-albuterol (DUONEB) 0.5 mg-3 mg(2.5 mg base)/3 mL nebu^INHALE 3 ML INSTRUCTED EVERY 4HOURS NEEDED^Disp: 180 mL^Rfl: 2 FAMILY HISTORY Problem Relation Age of Onset Heart Mother Hypertension Father Psychiatry Father Bipolar Psychiatry Sister No Known Problems Brother No Known Problems Maternal Grandmother Cancer Maternal Grandfather Diabetes Paternal Grandmother Stroke Paternal Grandmother Great Grandmother No Known Problems Paternal Grandfather Cancer Paternal Aunt other ([place]) Paternal Aunt Great aunt Colon Cancer No Family History Social History Tobacco Use Smoking status: Every Day Packs/day: .5 Types: Cigarettes Start date: 05/17/1992 Smokeless tobacco: Never Vaping Use Vaping Use: Never used Substance Use Topics Alcohol use: Not Currently Comment: Seldom- uses once every couple months Drug use: Not Currently Comment: marijuana h/o, 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 PHYSICAL EXAM BP 118/70 Pulse 84 Resp 16 Wt (!) 144.7 kg (319 lb) LMP 07/09/2023 (Approximate) SpO2 98% BMI 56.51 kg/m General Appearance: well appearing, in no acute distress, alert Pysch: mood and affect broad and appropriate Skin: Skin color, texture, turgor normal for age; Eyes: conjunctiva pink and moist, no icterus, sclera white, non-injected Lungs: Lungs clear to auscultation. No wheezing, rhonchi, rales. Heart: RRR without murmur, gallop, or rubs. No ectopy Abdomen: Abdomen soft, non-tender. Bowel sounds normal. No masses, organomegaly Health maintenance reviewed with patient: Mammogram Screening Never done Colorectal Cancer Screening due on 03/02/2022 Depression Assessment Never done DTaP,Tdap,Td Vaccine(2 - Td or Tdap) due on 05/31/2024 Hepatitis B Vaccine(1 of 3 - 3-dose series) due on 05/31/2024 Spirometry due on 05/31/2024 Pap Testing due on 05/31/2024 HPV Testing due on 05/31/2024 Covid-19 Vaccine(1) due on 05/31/2024 Pneumococcal Vaccine(2 of 2 - PPSV23 or PCV20) due on 05/31/2024 HbA1C due on 11/29/2023 LDL Cholesterol due on 02/26/2024 Annual PCP Team Chronic Disease Visit due on 05/31/2024 BP Controlled (<130/80) due on 07/14/2024 Influenza Vaccine Completed HIV Screening Completed HPV Vaccine Aged Out Urine Albumin:Creatinine Ratio Discontinued Dilated Retinal Exam Discontinued Diabetic Foot Exam Discontinued Hepatitis C Screening Discontinued DATA REVIEWED: No new labs ASSESSMENT/PLAN: 1. Controlled type 2 diabetes mellitus without complication, without long-term current use of insulin (HCC) - ICD9: 250.00, ICD10: E11.9 (primary diagnosis) - tolerating trulicity Follow up in 3 months - Continue current medications - Blood glucose monitoring on a once daily schedule - Counseled on healthy diet and regular exercise - Discussed need for and benefit of weight loss. BMI 56.51 kg/(m^2) - COMP METABOLIC PANEL - CBC + DIFF - HGB A1C 2. Other hyperlipidemia - ICD9: 272.4, ICD10: E78.49 Not discussed today, labs ordered to be reviewed at next appointment. - LIPID PANEL BASIC - COMP METABOLIC PANEL 3. Essential hypertension - ICD9: 401.9, ICD10: I10 Not discussed today, labs ordered to be reviewed at next appointment. - COMP METABOLIC PANEL - CBC + DIFF 4. Hypothyroidism, unspecified type - ICD9: 244.9, ICD10: E03.9 Not discussed today, labs ordered to be reviewed at next appointment. - TSH BLD Prescription instructions reviewed with patient as applicable. Potential red flag symptoms discussed with the patient. Reviewed appropriate action plan to take if red flag symptoms occur. Patient agreeable to treatment plan. Caryn Lowery APRN.CNP [facility] Discharge instructions Patient Education 07/14/2023 18:40:28 Hives (Adult) Hives (Adult) Hives are pink or red bumps on the skin. These bumps are also known as wheals. The bumps can itch, burn, or sting. Hives can occur anywhere on the body. They vary in size and shape and can form in clusters. Individual hives can appear and go away quickly. New hives may develop as old ones fade. Hives are common and usually harmless. Occasionally hives are a sign of a serious allergy. Hives are often caused by an allergic reaction. It may be an allergic reaction to foods such as fruit, shellfish, chocolate, nuts, or tomatoes. It may be a reaction to pollens, animal fur, or mold spores. Medicines, chemicals, and insect bites can also cause hives. And hives can be caused by hot sun or cold air. The cause of hives can be difficult to find. You may be given medicines to relieve swelling and itching. Follow all instructions when using these medicines. The hives will usually fade in a few days, but can last up to 2 weeks. Home care Follow these tips: Try to find the cause of the hives and eliminate it. Discuss possible causes with your healthcare provider. Future reactions to the same allergen may be worse. Don t scratch the hives. Scratching will delay healing. To reduce itching, apply cool, wet compresses to the skin. Dress in soft, loose cotton clothing. Don t bathe in hot water. This can make the itching worse. Apply an ice pack or cool pack wrapped in a thin towel to your skin. This will help reduce redness and itching. But if your hives were caused by exposure to cold, then do not apply more cold to them. You may use over-the counter antihistamines to reduce itching. Some older antihistamines, such as diphenhydramine and chlorpheniramine, are inexpensive. But they need to be taken often and may make you sleepy. They are best used at bedtime. Don t use diphenhydramine if you have glaucoma or have trouble urinating because of an enlarged prostate. Newer antihistamines, such as loratadine, cetirizine, and fexofenadine, are generally more expensive. But they tend to have fewer side effects, such as drowsiness. They can be taken less often. Another type of antihistamine is used to treat heartburn. This type includes ranitidine, nizatidine, famotidine, and cimetidine. These are sometimes used along with the above antihistamines if a single medicine is not working. Follow-up care Follow up with your healthcare provider if your symptoms don't get better in 2 days. Ask your provider about allergy testing if you have had a severe reaction, or have had several episodes of hives. He or she can use the allergy testing to find out what you are allergic to. When to seek medical advice Call your healthcare provider right away if any of these occur: Fever of 100.4 F (38.0 C) or higher, or as directed by your healthcare provider Redness, swelling, or pain Foul-smelling fluid coming from the rash Call 911 Call 911 if any of the following occur: Swelling of the face, throat, or tongue Trouble breathing or swallowing Dizziness, weakness, or fainting [id number] [employer] [place] [address]. All rights reserved. This information is not intended as a substitute for professional medical care. Always follow yourhealthcare professional's instructions. Follow Up Care 07/14/2023 18:28:54 With:BABAR PHILLIP Address: [address] [place] [phone] Business (1) When:2-4 days Comments:Schedule appointment for close follow-up if symptoms or not improving.Continue Zyrtec OR Benadryl until symptoms resolved.Use prednisone and famotidine as prescribed to help suppress the reaction.Return to the ED if symptoms worsen. [facility] 02-28-2024 Emergency department Discharge summary Discharge Instructions Thank you for allowing [facility] to assist you with your healthcare needs. The following is importantdischarge information regarding your hospital visit. Diagnosis from Today's Visit Rash What to Do Next Instructions from Your Care Team No qualifying data available. Post Acute Orders No qualifying data available. You Need to Schedule the Following Appointments Follow Up with BABAR PHILLIP When Within 2-4 days Why: Schedule appointment for close follow-up if symptoms or not improving. Continue Zyrtec OR Benadryl until symptoms resolved. Use prednisone and famotidine as prescribed to help suppress the reaction. Return to the ED if symptoms worsen. Where: [address] [place] [address] [place] [address] [facility] (1) Allergies amoxicillin codeine penicillin sulfa drugs Medications Please ask your primary doctor or pharmacist before taking any other medication not listed, including over the counter drugs, herbal medications, vitamins and or supplements as they may interact withyour home medications. What How Much When Why Instructions Last Dose New famotidine (famotidine 20 mg oral tablet) 1 tab(s) by mouth Two (2) times a day Duration: 5 Days Printed Prescription Changed predniSONE (predniSONE 10 mg oral tablet) 1 tab(s) by mouth Two (2) times a day Duration: 3 Days with food Changed predniSONE (predniSONE 20 mg oral tablet) 2 tab(s) by mouth Once a day Duration: 5 Days Printed Prescription Unchanged atorvastatin by mouth Once a day Unchanged furosemide (Lasix 20 mg oral tablet) 2 tab(s) by mouth Once a day Acute exacerbation of COPD Edema of both lower legs Unchanged loratadine (loratadine 10 mg oral tablet) 1 tab(s) by mouth Once a day before a meal Unchanged methylPREDNISolone (Medrol Dosepak 4 mg oral tablet) 1 Packet(s) by mouth Once a day Acute exacerbation of COPD Edema of both lower legs Duration: 6 Days as directed on package labeling Unchanged nortriptyline (nortriptyline 10 mg oral capsule) 1 cap by mouth Three (3) times a day Unchanged ranitidine (ranitidine 150 mg oral tablet (NF)) 1 tab(s) by mouth Once a day (in the morning) Unchanged tiZANidine (tiZANidine 2 mg oral tablet) 2 tab(s) by mouth Every 8 hours Unchanged zolpidem (Ambien) by mouth Daily at bedtime Please take this list to your next doctor s visit. Bring all medications you take, including over the counter medications, herbals and other supplements with you to your doctor s visit. Patients and families are reminded to discard old lists and to update any records with all medication providers or retail pharmacies. Education Materials Hives (Adult) Hives are pink or red bumps on the skin. These bumps are also known as wheals. The bumps can itch, burn, or sting. Hives can occur anywhere on the body. They vary in size and shape and can form in clusters. Individual hives can appear and go away quickly. New hives may develop as old ones fade. Hives are common and usually harmless. Occasionally hives are a sign of a serious allergy. Hives are often caused by an allergic reaction. It may be an allergic reaction to foods such as fruit, shellfish, chocolate, nuts, or tomatoes. It may be a reaction to pollens, animal fur, or mold spores. Medicines, chemicals, and insect bites can also cause hives. And hives can be caused by hot sun or cold air. The cause of hives can be difficult to find. You may be given medicines to relieve swelling and itching. Follow all instructions when using these medicines. The hives will usually fade in a few days, but can last up to 2 weeks. Home care Follow these tips: Try to find the cause of the hives and eliminate it. Discuss possible causes with your healthcare provider. Future reactions to the same allergen may be worse. Don t scratch the hives. Scratching will delay healing. To reduce itching, apply cool, wet compresses to the skin. Dress in soft, loose cotton clothing. Don t bathe in hot water. This can make the itching worse. Apply an ice pack or cool pack wrapped in a thin towel to your skin. This will help reduce redness and itching. But if your hives were caused by exposure to cold, then do not apply more cold to them. You may use over-the counter antihistamines to reduce itching. Some older antihistamines, such as diphenhydramine and chlorpheniramine, are inexpensive. But they need to be taken often and may make you sleepy. They are best used at bedtime. Don t use diphenhydramine if you have glaucoma or have trouble urinating because of an enlarged prostate. Newer antihistamines, such as loratadine, cetirizine, and fexofenadine, are generally more expensive. But they tend to have fewer side effects, such as drowsiness. They can be taken less often. Another type of antihistamine is used to treat heartburn. This type includes ranitidine, nizatidine, famotidine, and cimetidine. These are sometimes used along with the above antihistamines if a single medicine is not working. Follow-up care Follow up with your healthcare provider if your symptoms don't get better in 2 days. Ask your provider about allergy testing if you have had a severe reaction, or have had several episodes of hives. He or she can use the allergy testing to find out what you are allergic to. When to seek medical advice Call your healthcare provider right away if any of these occur: Fever of 100.4 F (38.0 C) or higher, or as directed by your healthcare provider Redness, swelling, or pain Foul-smelling fluid coming from the rash Call 911 Call 911 if any of the following occur: Swelling of the face, throat, or tongue Trouble breathing or swallowing Dizziness, weakness, or fainting [id number] [employer]. [address] [place] [address], [place] [address]. All rights reserved. This information is not intended as a substitute for professional medical care. Always follow yourhealthcare professional's instructions. Additional Information VACCINATE! IT SAVES LIVES! Members of the community who have not yet received the COVID-19 vaccine and would like to receive it can visit one of [facility] vaccine clinics. There are many vaccine clinic locations within the [facility]. For locations and available times, please visit [email or web address] It is important to note that some COVID mobile vaccine clinics are held outdoors and may be canceled in rainy or stormy conditions. To learn more about pediatric vaccinations (ages 5-11), we invite you to visit the [facility] webpage. [email or web address] learn more about the COVID-19 vaccine, we invite you to visit the CDC website for a list of frequently asked questions. https://www.cdc.gov/coronavirus/2019-ncov/vaccines/faq.html [facility] Patient Portal Access Instructions: Stay connected with your healthcare team and access your personal medical information anytime with the [facility] Patient Portal. If you would like a full copy of your medical records please contact the [facility] Medical Records Department Wednesday through Wednesday between 8a.m. and 4:30p.m. Please follow the directions below to access the portal: 1.Access the email account you provided upon registration to the [facility].2.Look for an invitation email from [facility].3.Open the email and access the invitation link: [facility]4.Fill in the required brewster to create your account. Sign into [email or web address] with your username and password that you created in the above steps to stay up to date. You can then view a summary of results, a summary of your visits, and the ability to download your summaries to your computer or send the information securely to a physician. Remember that your healthcare information is confidential, so carefully consider who you will allow to register on the [facility] Patient Portal for access to your information. You can also access the [facility] Patient Portal on the [employer]. Simply click on Health Records under [employer] and then click on the [facility] logo. HOW TO SAFELY DISPOSE OF PRESCRIPTION MEDICATIONS Please use one of the following methods to safely dispose of your unused medications. 1.Use a drug disposal kit: the drug disposal pouch allows you to safely discard your old and unuseddrugs. Ask your nurse to give you one when you are discharged.2.Visit a local take-back location: Many local pharmacies and police departments have programs that collect old and unwanted prescriptiondrugs. Call your local pharmacy or go to http://[employer] My [email or web address]/7A1It0n to find one close to you.3.Make use of household items: Use cat litter or old coffee grounds to dispose medications if other options arenot available. Mix your drugs with these household products, seal them in an airtight container andthrow it into the garbage. Call [facility]: [phone] to be sure your drugs can be disposed of in this way. Some medicines may require a different approach.4.Never flush your medications down the toilet. IF YOU HAVE BEEN PRESCRIBED AN OPIOIDS FOR PAIN If you have been prescribed an opioid (such as hydrocodone, oxycodone or morphine), it is critical to understand the possible side effects and risks of opioid pain medications. Even when taken as directed, opioids can have several side effects including: Tolerance, meaning you might need to take more of a medication for the same pain relief. Nausea, vomiting and/or constipation. Sleepiness, dizziness, dry mouth, confusion, depression or itching. Physical dependence, meaning you have withdrawal symptoms when a medication is stopped ? this can develop within a few days. KNOW YOUR RESPONSIBILITIES It is important to know exactly how much and how often to take the opioid pain medications you are prescribed. Never take opioids in higher amounts or more often than prescribed. Do not combine opioids with alcohol or other drugs that cause drowsiness, such as benzodiazepines, also known as benzos,including diazepam and alprazolam, muscle relaxants or sleep aids. Never sell or share prescriptionopioids. This is illegal. Store opioids in a secure place and out of reach of others (including children, family, friends and visitors). The last page(s) of this document has been signed and retained as a CHART COPY Signatures Patient Education Materials Hives (Adult) Medication Leaflets My discharge plan and instructions have been reviewed and explained to me and I,DARREN REINOSO understand my current condition and have read and understand these discharge instructions. I have received a written copy of the plan/instructions. If I have questions, I am aware that I should contact my d octor. Patient/Evening Sitter Signature: Date/Time: Relationship to Patient: Witness Name/Signature: Date/Time: [facility]02-28-2024 History of Present illness Narrative * Steve Ramirez APRN.ICT SUPPORT ENGINEER - 07/14/2023 8:42 AM EST Images from the original note were not included. Subjective HPI Nontoxic-appearing female presents urgent care chief complaint rash. Duration of symptoms 1 day. Associated symptoms pruritic erythematous rash. Developed yesterday. Is bothersome at night. No recentmedication changes antibiotic use. Overall feels well. Denies any fever body aches chills productive cough chest pain shortness of breath pleuritic pain hemoptysis nausea vomiting abdominal pain change in bowel or bladder habits. Past medical history prescription medication use and allergies reviewed. .Patient presents with: Rash: Body rash all over x 6 days PAST MEDICAL HISTORY Diagnosis Date Adjustment disorder with depressed mood Anxiety state, unspecified Dysmenorrhea Hearing loss no aids Other and unspecified ovarian cyst Ovarian cyst RECOVERING ALCOHOL, MARIJUANA & COCAINE PAST SURGICAL HISTORY Procedure Laterality Date COLONOSCOPY FLX DX W/COLLJ SPEC WHEN PFRMD 03/02/2017 Colonoscopy HEMORRHOIDECTOMY INCISE FINGER TENDON SHEATH Right 2002 INCISE FINGER TENDON SHEATH Right 07/23/2021 Right thumb and middle trigger finger releases LAPS ABD PRTM&OMENTUM DX W/WO SPEC BR/WA SPX Laparoscopy, diagnostic LIG/TRNSXJ FLP TUBE ABDL/VAG APPR UNI/BI Tubal ligation OVARIAN CYSTECTOMY 1990 ovarian cysts removed PAST SURGICAL HISTORY OF 1999 ORIF left ankle PAST SURGICAL HISTORY OF right middle finger surgery, staph debridment. PAST SURGICAL HISTORY OF 07/28/2013 left carpal tunnel release RECTAL EXAM UNDER ANESTHESIA 2014 REVISE MEDIAN N/CARPAL TUNNEL SURG 06/08/2014 right capral tunnel release TNOT ELBOW LATERAL/MEDIAL DEBRIDE OPEN Right 04/02/2017 Right elbow extensor tendon debridement TNOT ELBOW LATERAL/MEDIAL DEBRIDE OPEN Left 05/18/2018 Left elbow extensor tendon debridement TONSILLECTOMY PRIMARY/SECONDARY <AGE 12 Tonsillectomy ALLERGIES Amoxicillin, Codeine, Darvocet A500 [Propoxyphene N-Acetaminophen], Propoxyphene, and Sulfa (Sulfonamide Antibiotics) MEDICATIONS triamcinolone acetonide (KENALOG) 0.1 % cream^Apply 1 application to affected area two times a day for 7 days. Apply to affected area.^Disp: 15 g^Rfl: 0 omeprazole (PRILOSEC) 40 mg capsule^TAKE 1 CAPSULE BY MOUTH DAILY 1/2 HOUR BEFORE BREAKFAST^Disp: 30 capsule^Rfl: 5 dulaglutide (TRULICITY) 0.75 mg/0.5 mL pen injector^Inject 0.75 mg subcutaneously one time a week. Inject dose once per week. Discard Pen After^Disp: 2 mL^Rfl: 2 levothyroxine (SYNTHROID) 50 mcg tablet^TAKE 1 TABLET BY MOUTH DAILY TAKE ON EMPTY STOMACH. FOR THYROID^Disp: 30 tablet^Rfl: 5 furosemide (LASIX) 40 mg tablet^Take 1 tablet by mouth once daily.^Disp: 30 tablet^Rfl: 5 potassium chloride (K-TAB) 10 mEq tablet^Take 1 tablet by mouth daily with breakfast. Take with lasix^Disp: 90 tablet^Rfl: 3 famotidine (PEPCID) 20 mg tablet^Take 1 tablet by mouth daily at bedtime.^Disp: 90 tablet^Rfl: 3 metoprolol tartrate, short acting, (LOPRESSOR) 25 mg tablet^Take 1 tablet by mouth two times a day.^Disp: 60 tablet^Rfl: 5 atorvastatin (LIPITOR) 10 mg tablet^Take 1 tablet by mouth once daily.^Disp: 90 tablet^Rfl: 3 hydrOXYzine HCl (ATARAX) 25 mg tablet^Take 1 tablet by mouth at bedtime as needed for anxiety.^Disp: 15 tablet^Rfl: 1 naproxen (NAPROSYN) 500 mg tablet^Take 1 tablet by mouth twice daily as needed (for pain/inflammation). Take with food.^Disp: 30 tablet^Rfl: 1 nortriptyline (PAMELOR) 50 mg capsule^Take 1 capsule by mouth daily at bedtime.^Disp: 30 capsule^Rfl: 5 diclofenac (VOLTAREN) 1 % topical gel^Apply 2 g to affected area twice daily as needed.^Disp: 50 g^Rfl: 5 fluticasone (FLONASE) 50 mcg/actuation nasal spray^Use 2 Sprays in each nostril once daily. Rinse mouth after use.^Disp: 1 Each^Rfl: 11 promethazine (PHENERGAN) 25 mg tablet^Take 1 tablet by mouth every 8 hours as needed.^Disp: 30 tablet^Rfl: 0 TRUE METRIX GLUCOSE METER^test blood sugar DIRECTED^Disp: ^Rfl: SYMBICORT 160-4.5 mcg/actuation inhaler^^Disp: ^Rfl: cetirizine (ZYRTEC) 10 mg tablet^^Disp: ^Rfl: montelukast (SINGULAIR) 10 mg tablet^^Disp: ^Rfl: lamoTRIgine (LAMICTAL) 200 mg tablet^^Disp: ^Rfl: blood sugar diagnostic (BLOOD GLUCOSE TEST) test strip^Test blood sugar(s) 4 times daily. Dx: Type 2 DM - Controlled E11.9 Insulin: No^Disp: 50 Strip^Rfl: 11 glucose 4 gram chewable tablet^Take 3-4 tablets for hypoglycemia. Recheck blood sugar in 15 min after dose^Disp: 30 tablet^Rfl: 0 flash glucose scanning reader ([employer] ANA PAULA 2 READER)^1 Each once daily.^Disp: 1 Each^Rfl: 0 lidocaine (ANECREAM5) crea^Apply to affected area as needed.^Disp: 28 g^Rfl: 1 albuterol HFA (VENTOLIN HFA) 90 mcg/actuation inhaler^Inhale 2 Puffs as instructed every 4 hours asneeded for wheezing/shortness of breath.^Disp: 18 g^Rfl: 2 ipratropium-albuterol (DUONEB) 0.5 mg-3 mg(2.5 mg base)/3 mL nebu^INHALE 3 ML INSTRUCTED EVERY 4HOURS NEEDED^Disp: 180 mL^Rfl: 2 flash glucose sensor ([employer]YLE ANA PAULA 2 SENSOR) kit^USE TO CHECK BLOOD SUGAR DAILY^Disp: 2 Each^Rfl: 3 benzonatate (TESSALON PERLE) 100 mg capsule^Take 2 capsules by mouth three times a day as needed for cough.^Disp: 60 capsule^Rfl: 2 (Patient not taking: Reported on 07/14/2023) FAMILY HISTORY Problem Relation Age of Onset Heart Mother Hypertension Father Psychiatry Father Bipolar Psychiatry Sister No Known Problems Brother No Known Problems Maternal Grandmother Cancer Maternal Grandfather Diabetes Paternal Grandmother Stroke Paternal Grandmother Great Grandmother No Known Problems Paternal Grandfather Cancer Paternal Aunt other ([place]) Paternal Aunt Great aunt Colon Cancer No Family History Social History Tobacco Use Smoking status: Every Day Packs/day: .5 Types: Cigarettes Start date: 05/17/1992 Smokeless tobacco: Never Vaping Use Vaping Use: Never used Substance Use Topics Alcohol use: Not Currently Comment: Seldom- uses once every couple months Drug use: Not Currently Comment: marijuana h/o, 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 BP 118/74 Pulse 97 Temp 36.8 C (98.3 F) Resp 22 Wt (!) 145.9 kg (321 lb 9.6 oz) LMP 07/09/2023 (Approximate) SpO2 94% BMI 56.97 kg/m Resp 18 Review of Systems Constitutional: Negative for chills, fever and malaise/fatigue. HENT: Negative for congestion, ear discharge, ear pain, sinus pain and sore throat. Eyes: Negative for blurred vision, pain, discharge and redness. Respiratory: Negative for cough, hemoptysis, sputum production, shortness of breath, wheezing and stridor. Cardiovascular: Negative for chest pain. Gastrointestinal: Negative for abdominal pain, diarrhea, nausea and vomiting. Musculoskeletal: Negative for myalgias. Skin: Positive for itching and rash. Neurological: Negative for dizziness and headaches. Objective Physical Exam Constitutional: General: She is not in acute distress. Appearance: She is not toxic-appearing. HENT: Head: Normocephalic. Nose: Nose normal. Eyes: Pupils: Pupils are equal, round, and reactive to light. Cardiovascular: Rate and Rhythm: Normal rate. Pulmonary: Effort: Pulmonary effort is normal. No respiratory distress. Musculoskeletal: Cervical back: Normal range of motion. Skin: General: Skin is warm and dry. Comments: Erythematous urticarial-like rash noted highlighted area. Spares palms of hands. No mucous membrane involvement. No desquamation of skin. Neurological: General: No focal deficit present. Mental Status: She is alert. ASSESSMENT/PLAN: 1. Rash - ICD9: 782.1, ICD10: R21 Diagnosed with. Rash. Placed on cetirizine. Will use Pepcid as well. Patient was educated on supportive therapies. Patient will follow up with primary care provider as needed. Patient was instructed to immediately proceed to emergency room for any new, worsening, or symptoms lasting longer than anticipated. The patient's clinical presentation is otherwise unremarkable at this time. Based on exam and clinical finding, the patient is stable for discharge. Plan of care was discussed with patient. Patient verbalizes understanding and agrees to plan of care. This note was generated using [employer] software. It may contain errors in wording, punctuation, or spelling. Steve Ramirez APRN.JACINTA documented in this encounterSt. [facility] History of Present illness Narrative* Ana Gunderson RT(R) - 07/09/2023 3:40 PM EST Radiology Service Progress Note PATIENT NAME: Darren Reinoso DATE OF SERVICE: July 09, 2023 TIME: 3:29 PM PATIENT IDENTITY VERIFICATION COMPLETED USING TWO (2) IDENTIFIERS: Name and Date of confirmedby patient verbally. FALL SCREENING: Has the patient had 2 falls in the last year or 1 fall with injury or currently using an Ambulatory Assistive Device (Walker, Cane, Wheelchair, Crutches, etc.)? No PATIENT GENDER DATA: Female. status: : No status: NO. PATIENT RELEVANT IMPLANT DATA REVIEWED: Not Applicable PATIENT PRESENTS WITH AN IMPLANTABLE OR ATTACHED ROVING FRAME TENDER: No RADIOLOGY DEPARTMENT: General X-ray: Exam(s) Completed: Chest X-Ray PERIPHERAL IV DATA: Not applicable SIGNED BY: RT Luis(R) July 09, 2023 3:29 PM documented in this encounterSt. Anthony'[facility]02-23-[facility]24 History of Present illness Narrative* Niranjan Stiles PA - 07/09/2023 3:27 PM EST Images from the original note were not included. This note was created using [employer]. Subjective Darren Reinoso is a 43 year old female. HPI 43-year-old female presents for rash. Patient states that she felt like something bit her in the middle of the night last night. She states that she has a small bump on her right wrist that is itchy. She states she has a little bump on her back that is itchy as well. She states that she checkedher bed and did not see any bedbugs. She changed her sheets. She states she has used a new detergent recently, but does not feel like that is the cause. She has not used any new medications, eating any new foods. No fevers, cough. States she did take Zyrtec, but is still very itchy. Patient also reporting cough. She has COPD and has had cough for quite some time. She was seen herea week ago and diagnosed with COPD exacerbation. She was given doxycycline and prednisone taper. States she finished the prednisone taper, but did not seem to help. She states usually her prednisone burst helps her symptoms better. She still has some wheezing. She feels a rattling in her chest. Sheis still coughing up phlegm. No other complaint. PAST MEDICAL HISTORY Diagnosis Date Adjustment disorder with depressed mood Anxiety state, unspecified Dysmenorrhea Hearing loss no aids Other and unspecified ovarian cyst Ovarian cyst RECOVERING ALCOHOL, MARIJUANA & COCAINE PAST SURGICAL HISTORY Procedure Laterality Date COLONOSCOPY FLX DX W/COLLJ SPEC WHEN PFRMD 03/02/2017 Colonoscopy HEMORRHOIDECTOMY INCISE FINGER TENDON SHEATH Right 2002 INCISE FINGER TENDON SHEATH Right 07/23/2021 Right thumb and middle trigger finger releases LAPS ABD PRTM&OMENTUM DX W/WO SPEC BR/WA SPX Laparoscopy, diagnostic LIG/TRNSXJ FLP TUBE ABDL/VAG APPR UNI/BI Tubal ligation OVARIAN CYSTECTOMY 1990 ovarian cysts removed PAST SURGICAL HISTORY OF 1999 ORIF left ankle PAST SURGICAL HISTORY OF right middle finger surgery, staph debridment. PAST SURGICAL HISTORY OF 07/28/2013 left carpal tunnel release RECTAL EXAM UNDER ANESTHESIA 2014 REVISE MEDIAN N/CARPAL TUNNEL SURG 06/08/2014 right capral tunnel release TNOT ELBOW LATERAL/MEDIAL DEBRIDE OPEN Right 04/02/2017 Right elbow extensor tendon debridement TNOT ELBOW LATERAL/MEDIAL DEBRIDE OPEN Left 05/18/2018 Left elbow extensor tendon debridement TONSILLECTOMY PRIMARY/SECONDARY <AGE 10 Tonsillectomy ALLERGIES Amoxicillin, Codeine, Darvocet A500 [Propoxyphene N-Acetaminophen], Propoxyphene, and Sulfa (Sulfonamide Antibiotics) MEDICATIONS predniSONE (DELTASONE) 10 mg tablet^Take 4 tabs daily for 3 days, then 2 tabs daily for 3 days, then 1 tab daily for 3 days with food.^Disp: 21 tablet^Rfl: 0 omeprazole (PRILOSEC) 40 mg capsule^TAKE 1 CAPSULE BY MOUTH DAILY 1/2 HOUR BEFORE BREAKFAST^Disp: 30 capsule^Rfl: 5 dulaglutide (TRULICITY) 0.75 mg/0.5 mL pen injector^Inject 0.75 mg subcutaneously one time a week. Inject dose once per week. Discard Pen After^Disp: 2 mL^Rfl: 2 flash glucose sensor (FREE[employer]YLE ANA PAULA 2 SENSOR) kit^USE TO CHECK BLOOD SUGAR DAILY^Disp: 2 Each^Rfl: 3 levothyroxine (SYNTHROID) 50 mcg tablet^TAKE 1 TABLET BY MOUTH DAILY TAKE ON EMPTY STOMACH. FOR THYROID^Disp: 30 tablet^Rfl: 5 furosemide (LASIX) 40 mg tablet^Take 1 tablet by mouth once daily.^Disp: 30 tablet^Rfl: 5 potassium chloride (K-TAB) 10 mEq tablet^Take 1 tablet by mouth daily with breakfast. Take with lasix^Disp: 90 tablet^Rfl: 3 famotidine (PEPCID) 20 mg tablet^Take 1 tablet by mouth daily at bedtime.^Disp: 90 tablet^Rfl: 3 benzonatate (TESSALON PERLE) 100 mg capsule^Take 2 capsules by mouth three times a day as needed for cough.^Disp: 60 capsule^Rfl: 2 metoprolol tartrate, short acting, (LOPRESSOR) 25 mg tablet^Take 1 tablet by mouth two times a day.^Disp: 60 tablet^Rfl: 5 atorvastatin (LIPITOR) 10 mg tablet^Take 1 tablet by mouth once daily.^Disp: 90 tablet^Rfl: 3 hydrOXYzine HCl (ATARAX) 25 mg tablet^Take 1 tablet by mouth at bedtime as needed for anxiety.^Disp: 15 tablet^Rfl: 1 naproxen (NAPROSYN) 500 mg tablet^Take 1 tablet by mouth twice daily as needed (for pain/inflammation). Take with food.^Disp: 30 tablet^Rfl: 1 nortriptyline (PAMELOR) 50 mg capsule^Take 1 capsule by mouth daily at bedtime.^Disp: 30 capsule^Rfl: 5 diclofenac (VOLTAREN) 1 % topical gel^Apply 2 g to affected area twice daily as needed.^Disp: 50 g^Rfl: 5 fluticasone (FLONASE) 50 mcg/actuation nasal spray^Use 2 Sprays in each nostril once daily. Rinse mouth after use.^Disp: 1 Each^Rfl: 11 promethazine (PHENERGAN) 25 mg tablet^Take 1 tablet by mouth every 8 hours as needed.^Disp: 30 tablet^Rfl: 0 TRUE METRIX GLUCOSE METER^test blood sugar DIRECTED^Disp: ^Rfl: SYMBICORT 160-4.5 mcg/actuation inhaler^^Disp: ^Rfl: cetirizine (ZYRTEC) 10 mg tablet^^Disp: ^Rfl: montelukast (SINGULAIR) 10 mg tablet^^Disp: ^Rfl: lamoTRIgine (LAMICTAL) 200 mg tablet^^Disp: ^Rfl: blood sugar diagnostic (BLOOD GLUCOSE TEST) test strip^Test blood sugar(s) 4 times daily. Dx: Type 2 DM - Controlled E11.9 Insulin: No^Disp: 50 Strip^Rfl: 11 glucose 4 gram chewable tablet^Take 3-4 tablets for hypoglycemia. Recheck blood sugar in 15 min after dose^Disp: 30 tablet^Rfl: 0 flash glucose scanning reader ([employer] ANA PAULA 2 READER)^1 Each once daily.^Disp: 1 Each^Rfl: 0 lidocaine (ANECREAM5) crea^Apply to affected area as needed.^Disp: 28 g^Rfl: 1 albuterol HFA (VENTOLIN HFA) 90 mcg/actuation inhaler^Inhale 2 Puffs as instructed every 4 hours asneeded for wheezing/shortness of breath.^Disp: 18 g^Rfl: 2 ipratropium-albuterol (DUONEB) 0.5 mg-3 mg(2.5 mg base)/3 mL nebu^INHALE 3 ML INSTRUCTED EVERY 4HOURS NEEDED^Disp: 180 mL^Rfl: 2 triamcinolone acetonide (KENALOG) 0.1 % cream^Apply 1 application to affected area two times a day for 7 days. Apply to affected area.^Disp: 15 g^Rfl: 0 FAMILY HISTORY Problem Relation Age of Onset Heart Mother Hypertension Father Psychiatry Father Bipolar Psychiatry Sister No Known Problems Brother No Known Problems Maternal Grandmother Cancer Maternal Grandfather Diabetes Paternal Grandmother Stroke Paternal Grandmother Great Grandmother No Known Problems Paternal Grandfather Cancer Paternal Aunt other ([place]) Paternal Aunt Great aunt Colon Cancer No Family History Social History Tobacco Use Smoking status: Every Day Packs/day: .5 Types: Cigarettes Start date: 05/17/1992 Smokeless tobacco: Never Vaping Use Vaping Use: Never used Substance Use Topics Alcohol use: Not Currently Comment: Seldom- uses once every couple months Drug use: Not Currently Comment: marijuana h/o, 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 Review of Systems Constitutional: Negative for chills and fever. HENT: Positive for congestion. Negative for ear pain and sore throat. Respiratory: Positive for cough, shortness of breath and wheezing. Cardiovascular: Negative for chest pain. Gastrointestinal: Negative for diarrhea and vomiting. Skin: Positive for rash. Objective BP 161/90 Pulse 90 Temp 36.9 C (98.5 F) Resp 20 Wt (!) 143.8 kg (317 lb) LMP 07/09/2023 (Approximate) SpO2 98% BMI 56.15 kg/m Physical Exam Vitals and nursing note reviewed. Constitutional: General: She is not in acute distress. Appearance: Normal appearance. She is not toxic-appearing. HENT: Right Ear: Tympanic membrane and ear canal normal. Left Ear: Tympanic membrane and ear canal normal. Nose: Nose normal. Mouth/Throat: Mouth: Mucous membranes are moist. Pharynx: No oropharyngeal exudate or posterior oropharyngeal erythema. Eyes: Conjunctiva/sclera: Conjunctivae normal. Cardiovascular: Rate and Rhythm: Normal rate and regular rhythm. Pulmonary: Effort: Pulmonary effort is normal. Breath sounds: Wheezing present. No rhonchi or rales. Skin: Findings: Rash present. Comments: Patient has one small erythematous bump on right wrist, 1 on her left back. No other lesions or rashes. Nonvesicular. No abscess or fluctuance. No hives. No facial or oral involvement. Neurological: Mental Status: She is alert. Assessment and Plan ASSESSMENT/PLAN: 1. Acute cough - ICD9: 786.2, ICD10: R05.1 (primary diagnosis) - XR CHEST 2V FRONTAL/LAT-no acute abnormality. -Patient is wheezing. History of COPD and asthma. -Rx for prednisone burst. -Continue inhalers at home. -Follow-up with PCP if no improvement. 2. Rash - ICD9: 782.1, ICD10: R21 -Unsure cause of rash. She has 2 small erythematous bumps on exam. Does not appear consistent with scabies. -Advised patient to check her bed and for bedbugs, change sheets and wash in warm water and dry on high heat. -Continue Zyrtec and Benadryl for itching. -Rx for triamcinolone ointment to apply to the rash areas. Use sparingly. -Follow-up with PCP if no improvement. Diagnosis and treatment plan were discussed and questions were answered to the patient's satisfaction. Pt acknowledged understanding of concepts and follow up plan. Specific signs and symptoms that would indicate the need for higher level of care were discussed in detail warranting prompt ER evaluation. SKYLAR Flores documented in this encounterSt. [facility]02-[facility] History of Present illness Narrative* Shazia Lee ARCHITECTURAL DRAFTSMAN.ICT SUPPORT ENGINEER - 06/30/2023 4:16 PM EST This note was created using [employer]. Subjective Darren Reinoso is a 43 year old female. 43 year old female with PMH of COPD, asthma, HTN, HLD, and DM presents today with acute onset URI symptoms for two days. Pertinent positives include productive cough with clear/yellow sputum, rhinorrhea with clear/yellow drainage, nasal congestion, headache and vomiting. Pertinent negatives include dyspnea, sore throat, ear pain, eye drainage, nausea, and diarrhea. She has been using her rescue inhaler BID since symptom onset. Known exposure to COVID. The history is provided by the patient. Cough This is a new problem. The current episode started more than 2 days ago. The problem occurs constantly. The problem has not changed since onset.The cough is Productive of sputum. There has been no fever. Associated symptoms include headaches and rhinorrhea. Pertinent negatives include no chest pain, no chills, no ear congestion, no ear pain, no sore throat, no myalgias, no shortness of breath andno eye redness. She has tried nothing for the symptoms. She is a smoker. Her past medical history is significant for COPD and asthma. URI She complains of cough. There is no chest tightness, difficulty breathing or shortness of breath. This is a new problem. The current episode started in the past 7 days. The problem occurs constantly.The problem has been unchanged. The cough is productive of sputum (clear/yellow). Associated symptoms include headaches, nasal congestion and rhinorrhea. Pertinent negatives include no appetite change, chest pain, dyspnea on exertion, ear congestion, ear pain, fever, malaise/fatigue, myalgias or sore throat. Her symptoms are aggravated by nothing. Her symptoms are alleviated by nothing. She reports no improvement on treatment. Risk factors for lung disease include smoking/tobacco exposure. Her p ast medical history is significant for asthma and COPD. PAST MEDICAL HISTORY Diagnosis Date Adjustment disorder with depressed mood Anxiety state, unspecified Dysmenorrhea Hearing loss no aids Other and unspecified ovarian cyst Ovarian cyst RECOVERING ALCOHOL, MARIJUANA & COCAINE PAST SURGICAL HISTORY Procedure Laterality Date COLONOSCOPY FLX DX W/COLLJ SPEC WHEN PFRMD 03/02/2017 Colonoscopy HEMORRHOIDECTOMY INCISE FINGER TENDON SHEATH Right 2002 INCISE FINGER TENDON SHEATH Right 07/23/2021 Right thumb and middle trigger finger releases LAPS ABD PRTM&OMENTUM DX W/WO SPEC BR/WA SPX Laparoscopy, diagnostic LIG/TRNSXJ FLP TUBE ABDL/VAG APPR UNI/BI Tubal ligation OVARIAN CYSTECTOMY 1990 ovarian cysts removed PAST SURGICAL HISTORY OF 1999 ORIF left ankle PAST SURGICAL HISTORY OF right middle finger surgery, staph debridment. PAST SURGICAL HISTORY OF 07/28/2013 left carpal tunnel release RECTAL EXAM UNDER ANESTHESIA 2014 REVISE MEDIAN N/CARPAL TUNNEL SURG 06/08/2014 right capral tunnel release TNOT ELBOW LATERAL/MEDIAL DEBRIDE OPEN Right 04/02/2017 Right elbow extensor tendon debridement TNOT ELBOW LATERAL/MEDIAL DEBRIDE OPEN Left 05/18/2018 Left elbow extensor tendon debridement TONSILLECTOMY PRIMARY/SECONDARY <AGE 12 Tonsillectomy ALLERGIES Amoxicillin, Codeine, Darvocet A500 [Propoxyphene N-Acetaminophen], Propoxyphene, and Sulfa (Sulfonamide Antibiotics) MEDICATIONS omeprazole (PRILOSEC) 40 mg capsule^TAKE 1 CAPSULE BY MOUTH DAILY 1/2 HOUR BEFORE BREAKFAST^Disp: 30 capsule^Rfl: 5 dulaglutide (TRULICITY) 0.75 mg/0.5 mL pen injector^Inject 0.75 mg subcutaneously one time a week. Inject dose once per week. Discard Pen After^Disp: 2 mL^Rfl: 2 flash glucose sensor ([employer] ANA PAULA 2 SENSOR) kit^USE TO CHECK BLOOD SUGAR DAILY^Disp: 2 Each^Rfl: 3 levothyroxine (SYNTHROID) 50 mcg tablet^TAKE 1 TABLET BY MOUTH DAILY TAKE ON EMPTY STOMACH. FOR THYROID^Disp: 30 tablet^Rfl: 5 furosemide (LASIX) 40 mg tablet^Take 1 tablet by mouth once daily.^Disp: 30 tablet^Rfl: 5 potassium chloride (K-TAB) 10 mEq tablet^Take 1 tablet by mouth daily with breakfast. Take with lasix^Disp: 90 tablet^Rfl: 3 famotidine (PEPCID) 20 mg tablet^Take 1 tablet by mouth daily at bedtime.^Disp: 90 tablet^Rfl: 3 benzonatate (TESSALON PERLE) 100 mg capsule^Take 2 capsules by mouth three times a day as needed for cough.^Disp: 60 capsule^Rfl: 2 metoprolol tartrate, short acting, (LOPRESSOR) 25 mg tablet^Take 1 tablet by mouth two times a day.^Disp: 60 tablet^Rfl: 5 atorvastatin (LIPITOR) 10 mg tablet^Take 1 tablet by mouth once daily.^Disp: 90 tablet^Rfl: 3 hydrOXYzine HCl (ATARAX) 25 mg tablet^Take 1 tablet by mouth at bedtime as needed for anxiety.^Disp: 15 tablet^Rfl: 1 naproxen (NAPROSYN) 500 mg tablet^Take 1 tablet by mouth twice daily as needed (for pain/inflammation). Take with food.^Disp: 30 tablet^Rfl: 1 nortriptyline (PAMELOR) 50 mg capsule^Take 1 capsule by mouth daily at bedtime.^Disp: 30 capsule^Rfl: 5 diclofenac (VOLTAREN) 1 % topical gel^Apply 2 g to affected area twice daily as needed.^Disp: 50 g^Rfl: 5 fluticasone (FLONASE) 50 mcg/actuation nasal spray^Use 2 Sprays in each nostril once daily. Rinse mouth after use.^Disp: 1 Each^Rfl: 11 promethazine (PHENERGAN) 25 mg tablet^Take 1 tablet by mouth every 8 hours as needed.^Disp: 30 tablet^Rfl: 0 TRUE METRIX GLUCOSE METER^test blood sugar DIRECTED^Disp: ^Rfl: SYMBICORT 160-4.5 mcg/actuation inhaler^^Disp: ^Rfl: cetirizine (ZYRTEC) 10 mg tablet^^Disp: ^Rfl: montelukast (SINGULAIR) 10 mg tablet^^Disp: ^Rfl: lamoTRIgine (LAMICTAL) 200 mg tablet^^Disp: ^Rfl: blood sugar diagnostic (BLOOD GLUCOSE TEST) test strip^Test blood sugar(s) 4 times daily. Dx: Type 2 DM - Controlled E11.9 Insulin: No^Disp: 50 Strip^Rfl: 11 glucose 4 gram chewable tablet^Take 3-4 tablets for hypoglycemia. Recheck blood sugar in 15 min after dose^Disp: 30 tablet^Rfl: 0 flash glucose scanning reader ([employer] ANA PAULA 2 READER)^1 Each once daily.^Disp: 1 Each^Rfl: 0 lidocaine (ANECREAM5) crea^Apply to affected area as needed.^Disp: 28 g^Rfl: 1 albuterol HFA (VENTOLIN HFA) 90 mcg/actuation inhaler^Inhale 2 Puffs as instructed every 4 hours asneeded for wheezing/shortness of breath.^Disp: 18 g^Rfl: 2 ipratropium-albuterol (DUONEB) 0.5 mg-3 mg(2.5 mg base)/3 mL nebu^INHALE 3 ML INSTRUCTED EVERY 4HOURS NEEDED^Disp: 180 mL^Rfl: 2 predniSONE (DELTASONE) 10 mg tablet^Take 4 tabs daily for 3 days, then 2 tabs daily for 3 days, then 1 tab daily for 3 days with food.^Disp: 21 tablet^Rfl: 0 doxycycline (VIBRA-TABS) 100 mg tablet^Take 1 tablet by mouth two times a day for 7 days.^Disp: 14 tablet^Rfl: 0 FAMILY HISTORY Problem Relation Age of Onset Heart Mother Hypertension Father Psychiatry Father Bipolar Psychiatry Sister No Known Problems Brother No Known Problems Maternal Grandmother Cancer Maternal Grandfather Diabetes Paternal Grandmother Stroke Paternal Grandmother Great Grandmother No Known Problems Paternal Grandfather Cancer Paternal Aunt other ([place]) Paternal Aunt Great aunt Colon Cancer No Family History Social History Tobacco Use Smoking status: Every Day Packs/day: .5 Types: Cigarettes Start date: 05/17/1992 Smokeless tobacco: Never Vaping Use Vaping Use: Never used Substance Use Topics Alcohol use: Not Currently Comment: Seldom- uses once every couple months Drug use: Not Currently Comment: marijuana h/o, 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 Review of Systems Constitutional: Negative for activity change, appetite change, chills, fatigue, fever and malaise/fatigue. HENT: Positive for rhinorrhea. Negative for ear discharge, ear pain, sinus pressure, sinus pain andsore throat. Eyes: Negative for pain, discharge, redness and itching. Respiratory: Positive for cough. Negative for chest tightness and shortness of breath. Cardiovascular: Negative for chest pain and dyspnea on exertion. Gastrointestinal: Positive for vomiting. Negative for abdominal pain, diarrhea and nausea. Musculoskeletal: Negative for myalgias. Skin: Negative for color change. Neurological: Positive for headaches. Negative for dizziness and light-headedness. Objective BP 128/78 Pulse 85 Temp 36.6 C (97.9 F) (Tympanic) Resp 18 Wt (!) 144.9 kg (319 lb 6.4 oz) LMP 12/15/2021 SpO2 97% BMI 56.58 kg/m Physical Exam Vitals reviewed. Constitutional: General: She is awake. She is not in acute distress. Appearance: Normal appearance. She is normal weight. She is not ill-appearing, toxic-appearing or diaphoretic. HENT: Head: Normocephalic. Right Ear: Hearing, ear canal and external ear normal. No decreased hearing noted. No laceration, drainage, swelling or tenderness. No middle ear effusion. There is no impacted cerumen. No foreign body. No mastoid tenderness. No PE tube. No hemotympanum. Tympanic membrane is erythematous. Tympanic membrane is not injected, scarred, perforated, retracted or bulging. Tympanic membrane has normal mobility. Left Ear: Hearing, tympanic membrane and ear canal normal. No decreased hearing noted. No laceration, drainage, swelling or tenderness. No middle ear effusion. There is no impacted cerumen. No foreign body. No mastoid tenderness. No PE tube. No hemotympanum. Tympanic membrane is not injected, scarred, perforated, erythematous, retracted or bulging. Tympanic membrane has normal mobility. Nose: Congestion present. No nasal deformity, septal deviation, signs of injury, laceration, nasal tenderness, mucosal edema or rhinorrhea. Right Nostril: No foreign body, epistaxis, septal hematoma or occlusion. Left Nostril: No foreign body, epistaxis, septal hematoma or occlusion. Right Turbinates: Not enlarged, swollen or pale. Left Turbinates: Not enlarged, swollen or pale. Right Sinus: Maxillary sinus tenderness and frontal sinus tenderness present. Left Sinus: Maxillary sinus tenderness and frontal sinus tenderness present. Mouth/Throat: Lips: [place]. No lesions. Mouth: Mucous membranes are moist. No oral lesions. Tongue: No lesions. Palate: No lesions. Pharynx: Oropharynx is clear. Uvula midline. No pharyngeal swelling, oropharyngeal exudate, posterior oropharyngeal erythema or uvula swelling. Tonsils: No tonsillar exudate or tonsillar abscesses. 1+ on the right. 1+ on the left. Eyes: General: Lids are normal. No allergic shiner or scleral icterus. Right eye: No discharge. Left eye: No discharge. Conjunctiva/sclera: Conjunctivae normal. Right eye: Right conjunctiva is not injected. No chemosis, exudate or hemorrhage. Left eye: Left conjunctiva is not injected. No chemosis, exudate or hemorrhage. Cardiovascular: Rate and Rhythm: Normal rate and regular rhythm. Heart sounds: Normal heart sounds, S1 normal and S2 normal. Heart sounds not distant. No murmur heard. No friction rub. No gallop. Pulmonary: Effort: Pulmonary effort is normal. No tachypnea, bradypnea, accessory muscle usage, prolonged expiration or respiratory distress. Breath sounds: Normal breath sounds. No stridor or decreased air movement. No decreased breath sounds, wheezing, rhonchi or rales. Chest: Chest wall: No tenderness. Musculoskeletal: General: Normal range of motion. Cervical back: Full passive range of motion without pain and normal range of motion. No tenderness. Lymphadenopathy: Cervical: No cervical adenopathy. Skin: General: Skin is warm and dry. Capillary Refill: Capillary refill takes less than 2 seconds. Neurological: General: No focal deficit present. Mental Status: She is alert and oriented to person, place, and time. Mental status is at baseline. Motor: No weakness. Coordination: Coordination normal. Gait: Gait normal. Psychiatric: Mood and Affect: Mood normal. Behavior: Behavior normal. Behavior is cooperative. Thought Content: Thought content normal. Judgment: Judgment normal. Assessment and Plan ASSESSMENT/PLAN: 1. URI, acute - ICD9: 465.9, ICD10: J06.9 (primary diagnosis) - Acute onset URI symptoms for two days including productive cough, congestion and headache. - Known exposure to COVID - LCTA, maxillary and frontal sinus tenderness, right TM erythematous not bulging, left TM WDL - well-appearing, vitals stable - Discussed viral etiology and rationale for treatment. - Symptomatic treatment with prn analgesia - Supportive care with fluids and rest - The patient may also use OTC decongestants prn. - COVID & INFLUENZA A/B & RSV NAAT, ROUTINE 2. Asthma with COPD with exacerbation (HCC) (HCC) - ICD9: 493.22, ICD10: J44.1, J45.901 - Secondary to above - Patient reports a history of asthma and COPD on two inhalers at home and 2 L home oxygen - Has been using rescue inhaler BID since symptom onset - LCTA, maxillary and frontal sinus tenderness, right TM erythematous not bulging, left TM WDL - well-appearing, vitals stable - Continue current medications - Exacerbation treatment of prednisone taper - Avoidance of triggers recommended - Patient requested doxycycline for symptoms, educated patient this is likely viral. Sent antibiotic to be picked up if COVID/influenza/rsv negative with aby Moss TEACHING PROVIDER (Physician/PA/ARCHITECTURAL DRAFTSMAN) NOTE OF PERSONAL INVOLVEMENT IN CARE: I have personally seen and examined the patient and performed the medical decision-making components. I have reviewed the Advanced Practice Registered Nurse (ARCHITECTURAL DRAFTSMAN) Student's documentation and verified the findings in the note as written. Any additions or changes are noted in bold/italics. Signature: Shazia Lee Date: 06/30/2023 Time: 6:53 PM documented in this encounterSt. [facility] Miscellaneous Notes* Telephone Encounter - Tete Gonzalez RN - 06/30/2023 2:01 PM EST Triage Protocol Advised: See provider within 4 hours for evaluation. Pt agreeable to EC today. Reason for Disposition MILD difficulty breathing (e.g., minimal/no SOB at rest, SOB with walking, pulse <100) Answer Assessment - Initial Assessment Questions Patient calling and reports she was exposed to COVID in the last 2 weeks Reports 2 days ago she began with stuffy nose, chest congestion, productive cough, wheezing, mild to moderate SOB, headache, and posterior neck soreness. DENIES: chest pain or tightness, severe SOB, fever or chills, sore throat, or dizziness. Using nebulizer and inhalers as ordered. Has Home O2 if needed. Current SpO2=94% room air. History of asthma and diabetes. Requesting steroids and antibiotics. Evaluation advised. 1. COVID-19 DIAGNOSIS: as above 2. COVID-19 EXPOSURE: yes 3. ONSET: 2 days ago 4. WORST SYMPTOM: chest congestion 5. COUGH: yes 6. FEVER: denies 7. RESPIRATORY STATUS: able to speak full sentences during call, wheezing at times 8. [id number]: worse 9. OTHER SYMPTOMS: as above 10. HIGH RISK DISEASE: yes 11. VACCINE: see history 12. : no 13. O2 SATURATION MONITOR: as above Protocols used: COVID-19 - Diagnosed or [id number] documented in this encounterSt. [facility]12-[facility] History of Present illness Narrative* Ana Gunderson RT(R) - 04/21/2023 2:30 PM EST Radiology Service Progress Note PATIENT NAME: Darren Reinoso DATE OF SERVICE: April 21, 2023 TIME: 2:38 PM PATIENT IDENTITY VERIFICATION COMPLETED USING TWO (2) IDENTIFIERS: Name and Date of confirmedby patient verbally. FALL SCREENING: Has the patient had 2 falls in the last year or 1 fall with injury or currently using an Ambulatory Assistive Device (Walker, Cane, Wheelchair, Crutches, etc.)? No PATIENT GENDER DATA: Female. status: : No status: NO. PATIENT RELEVANT IMPLANT DATA REVIEWED: Not Applicable RADIOLOGY DEPARTMENT: General X-ray: Exam(s) Completed: Chest X-Ray PERIPHERAL IV DATA: Not applicable SIGNED BY: RT Luis(R) April 21, 2023 2:38 PM documented in this encounterSt. [facility]12-04-2023 Miscellaneous Notes* Telephone Encounter - Joyce Fuentes - 04/19/2023 4:20 PM EST Patient has been identified by name and date of : No Patient phones for refill(s): Requested Prescriptions Pending Prescriptions Disp Refills FREESTYLE ANA PAULA 2 SENSOR kit [Pharmacy Med Name: FreeStyle Ana Paula 2 Sensor Systm MISC] 2 Each Sig: USE TO CHECK BLOOD SUGAR DAILY Date of last office visit in primary care: 01/24/2021 Date of next office visit in primary care: Visit date not found Last 2 Encounter Wt Readings: Date: Wt: 04/05/2023 147 kg (324 lb) 03/03/2023 142 kg (313 lb) Previous labs/tests for medication: Diabetes: Hemoglobin A1C (%) Date Value 02/25/2023 6.1 06/12/2022 5.9 04/24/2021 6.7 10/15/2020 6.1 Hemoglobin A1C (POCT) (%) Date Value 11/23/2022 6.2 01/23/2022 6.1 Please advise. Thank you. Joyce Fuenets. documented in this encounterSt. [facility]12-04-2023 Miscellaneous Notes* Telephone Encounter - Hope Dickey LPN - 04/19/2023 2:34 PM EST Patient has been identified by name and date of : Pharmacy phones for refill(s): Requested Prescriptions Pending Prescriptions Disp Refills potassium chloride (K-TAB) 10 mEq tablet 90 tablet 3 Sig: Take 1 tablet by mouth daily with breakfast. Take with lasix famotidine (PEPCID) 20 mg tablet 90 tablet 1 Sig: Take 1 tablet by mouth daily at bedtime. Date of last office visit in primary care: 03/03/2023 Date of next office visit in primary care: Visit date not found Last 2 Encounter Wt Readings: Date: Wt: 04/05/2023 147 kg (324 lb) 03/03/2023 142 kg (313 lb) Previous labs/tests for medication: Blood Pressure: BUN (mg/dL) Date Value 02/25/2023 10 07/01/2021 10 Sodium (mmol/L) Date Value 02/25/2023 139 07/01/2021 139 Last 1 Encounter BP Readings: Date: BP: 04/05/2023 138/84 Please advise. Thank you. Hope Dickey LPN. documented in this encounterSt. [facility]12-01-2023 Miscellaneous Notes* Telephone Encounter - Chaparrita Paez RN - 04/16/2023 4:45 PM EST Pt called and is notified of providers message and instructions. Pt voices understanding. Chaparrita Paez RN * Telephone Encounter - Linda Reyez APRN.CNP - 04/16/2023 4:37 PM EST Okay to try tessalon, script sent * Telephone Encounter - Tarah Haider LPN - 04/16/2023 12:43 PM EST Pt called back with an update. COVID positive and given Paxlovid. She took for 2 days and vomiting started the 2nd night and she stopped the medication. Ribs sore from vomiting and coughing. Pt getting thick, dark yellow mucous. Pt has been using her nebulizer and the treatments will loosen things up for a while. Pt also has been taking her oxygen when needed at 2L. Patient asking for something for the cough and congestion. Please advise pt. Tarah Haider LPN documented in this encounterSt. [facility]11-27-2023 Instructions* Patient Instructions* Linda Reyez APRN.CNP - 04/12/2023 9:38 AM EST Fact Sheet for Patients And Caregivers Emergency Use Authorization (EUA) Of LAGEVRIO (molnupiravir) capsules For Coronavirus Disease 2019 (COVID-19) What is the most important information I should know about LAGEVRIO? LAGEVRIO may cause serious side effects, including: LAGEVRIO may cause harm to your unborn baby. It is not known if LAGEVRIO will harm your baby if youtake LAGEVRIO during . LAGEVRIO is not recommended for use in . LAGEVRIO has not been studied in . LAGEVRIO was studied in animals only. When LAGEVRIO was given to animals, LAGEVRIO caused harm to their unborn babies. You and your healthcare provider may decide that you should take LAGEVRIO during if thereare no other COVID-19 treatment options approved or authorized by the FDA that are accessible or clinically appropriate for you. If you and your healthcare provider decide that you should take LAGEVRIO during , you and your healthcare provider should discuss the known and potential benefits and the potential risks of taking LAGEVRIO during . For individuals who are able to become : You should use a reliable method of control (contraception) consistently and correctly duringtreatment with LAGEVRIO and for 4 days after the last dose of LAGEVRIO. Talk to your healthcare provider about reliable control methods. Before starting treatment with LAGEVRIO your healthcare provider may do a test to see if you are before starting treatment with LAGEVRIO. Tell your healthcare provider right away if you become or think you may be duringtreatment with LAGEVRIO. Registry: There is a registry for individuals who take LAGEVRIO during . The purpose of this program is to collect information about the health of you and your baby. If you are or become during treatment with LAGEVRIO, you are encouraged to reportyour use of LAGEVRIO during to this registry at https://covid-pr.[employer] or . For individuals who are sexually active with partners who are able to become : It is not known if LAGEVRIO can affect sperm. While the risk is regarded as low, animal studies to fully assess the potential for LAGEVRIO to affect the babies of males treated with LAGEVRIO have notbeen completed. A reliable method of control (contraception) should be used consistently and correctly during treatment with LAGEVRIO and for at least 3 months after the last dose. The risk to sperm beyond 3 months is not known. Studies to understand the risk to sperm beyond 3 months are ongoing. Talk to your healthcare provider about reliable control methods. Talk to your healthcare provider if you have questions or concerns about how LAGEVRIO may affect sperm. You are being given this fact sheet because your healthcare provider believes it is necessary to provide you with LAGEVRIO for the treatment of adults with a current diagnosis of mild-tomoderate coronavirus disease 2019 (COVID-19) who are at high risk for progression to severe COVID-19, including hospitalization or , and for whom other COVID-19 treatment options approved or authorized by theFDA are not accessible or clinically appropriate. The [place]. Food and Drug Administration (FDA) has issued an Emergency Use Authorization (EUA) to makeLAGEVRIO available during the COVID-19 pandemic (for more details about an EUA please see What is an Emergency Use Authorization? at the end of this document). LAGEVRIO is not an FDA-approved medicine in the [place]. Read this Fact Sheet for information about LAGEVRIO. Talk to your healthcareprovider about your options if you have any questions. It is your choice to take LAGEVRIO. What is COVID-19? COVID-19 is caused by a virus called a coronavirus. You can get COVID-19 through close contact withanother person who has the virus. COVID-19 illnesses have ranged from very gvij-ji-lzufxm, including illness resulting in . While information so far suggests that most COVID-19 illness is mild, serious illness can happen and maycause some of your other medical conditions to become worse. Older people and people of all ages with severe, long lasting (chronic) medical conditions like heart disease, lung disease and diabetes, for example seem to be at higher risk of being hospitalized for COVID-19. What is LAGEVRIO? LAGEVRIO is an investigational medicine used to treat adults with a current diagnosis of mild to moderate COVID-19: who are at high risk for progression to severe COVID-19 including hospitalization or , and for whom other COVID-19 treatment options approved or authorized by the FDA are not accessible or clinically appropriate. The FDA has authorized the emergency use of LAGEVRIO for the treatment of mild- tomoderate COVID-19 in adults under an EUA. For more information on EUA, see the What is an Emergency Use Authorization (EUA)? section at the end of this Fact Sheet. LAGEVRIO is not authorized: for use in people less than 18 years of age. for prevention of COVID-19. for people needing hospitalization for COVID-19. for use for longer than 5 consecutive days. What should I tell my healthcare provider before I take LAGEVRIO? Tell your healthcare provider if you: have any allergies are or plan to breastfeed have any serious illnesses Take any medicines including prescription, ymuo-nfs-dyrmgtj medicines, vitamins, and herbal products. How do I take LAGEVRIO? Take LAGEVRIO exactly as your healthcare provider tells you to take it. Take 4 capsules of LAGEVRIO every 12 hours (for example, at 8 am and at 8 pm) Take LAGEVRIO for 5 days. It is important that you complete the full 5 days of treatment with LAGEVRIO. Do not stop taking LAGEVRIO before you complete the full 5 days of treatment, even if you feel better. Take LAGEVRIO with or without food. You should stay in isolation for as long as your healthcare provider tells you to. Talk to your healthcare provider if you are not sure about how to properly isolate while you have COVID-19. Swallow LAGEVRIO capsules whole. Do not open, break, or crush the capsules. If you cannot swallow capsules whole, tell your healthcare provider. If your healthcare provider prescribes LAGEVRIO and tells you to take or give a dose through a nasogastric (NG) or orogastric (OG) tube, follow the instructions below: How to take or give a dose of LAGEVRIO through a nasogastric (NG) or orogastric (OG) feeding tube. You must have an NG or OG that is size 12 [place] (FR) or larger. If you miss a dose of LAGEVRIO: If it has been less than 10 hours since the missed dose, take it as soon as you remember. If it has been more than 10 hours since the missed dose, skip the missed dose and take your dose atthe next scheduled time. Do not double the dose of LAGEVRIO to make up for a missed dose. How to take or give a dose of LAGEVRIO through a nasogastric (NG) or orogastric (OG) feeding tube: Wash your hands well with soap and water. Gather the supplies you will need to take or give the prescribed dose of LAGEVRIO. 4 LAGEVRIO capsules 1 liquid measuring cup with mL markings to measure 40 mL of room temperature water 1 clean container with a lid 1 catheter tip syringe. Your healthcare provider should tell you what size catheter tip syringe youwill need to take or give a dose of LAGEVRIO. Place the needed supplies on a clean work surface. Follow your healthcare provider s instructions on how to flush the NG or OG feeding tube. Flush theNG or OG feeding tube with 5 mL of water before taking or giving a dose of LAGEVRIO. Carefully open 4 LAGEVRIO capsules, one at a time, and empty the contents into a clean container. Use the liquid measuring cup to measure 40 mL of room temperature water and add to the container containing the capsule contents. Place the lid on the container. Shake to mix the capsule contents and water well for 3 minutes. Thecapsule contents may not dissolve completely. Remove the lid from the container and draw up all the LAGEVRIO and water mixture into a catheter tip syringe. Give all of the mixture right away through the NG or OG feeding tube. Do not keep the mixture for future use. If any capsule contents are left in the container: Add 10 mL of water to the container, and mix to loosen any capsule contents that are left in the container. Use the catheter tip syringe to draw up all of the mixture in the container. Give the mixture through the NG or OG feeding tube. Repeat this process as needed until you no longer see any capsule contents left in the container orcatheter tip syringe. Use the same catheter tip syringe to flush the NG or OG feeding tube 2 times with 5 mL of water (10mL total). Rinse the container, lid and catheter tip syringe well with clean water after use. Place on a cleanpaper towel until next use. What are the important possible side effects of LAGEVRIO? See, What is the most important information I should know about LAGEVRIO? Allergic Reactions. Allergic reactions can happen in people taking LAGEVRIO, even after only 1 dose. Stop taking LAGEVRIO and call your healthcare provider right away if you get any of the following symptoms of an allergic reaction: hives rapid heartbeat trouble swallowing or breathing swelling of the mouth, lips, or face throat tightness hoarseness skin rash The most common side effects of LAGEVRIO are: diarrhea nausea dizziness These are not all the possible side effects of LAGEVRIO. Not many people have taken LAGEVRIO. Serious and unexpected side effects may happen. This medicine is still being studied, so it is possible that all of the risks are not known at this time. What other treatment choices are there? Veklury (remdesivir) is FDA-approved as an intravenous (IV) infusion for the treatment of mildto-moderate COVID-19 in certain adults and children. Talk with your doctor to see if Veklury is appropriate for you. Like LAGEVRIO, FDA may also allow for the emergency use of other medicines to treat people with COVID-19. Go to https://www.fda.gov/ydhwrpcfs-aforroeagouz-uiz-response/bki-klrqusqhjykmabf-vhh- policy-framework/kxjjnvjqj-avk-znymbdltukkxt for more information. It is your choice to be treated or not to be treated with LAGEVRIO. Should you decide not to take it, it will not change your standard medical care. What if I am ? is not recommended during treatment with LAGEVRIO and for 4 days after the last dose of LAGEVRIO. If you are or plan to breastfeed, talk to your healthcare provider about your options and specific situation before taking LAGEVRIO. How do I report side effects with LAGEVRIO? Contact your healthcare provider if you have any side effects that bother you or do not go away. Report side effects to FDA MedWatch at www.fda.gov/medwatch or call 6-669-URC-2291 (1733.879.9215). How should I store LAGEVRIO? Store LAGEVRIO capsules at room temperature between 68 F to 77 F (20 C to 25 C). Keep LAGEVRIO and all medicines out of the reach of children. How can I learn more about COVID-19? Ask your healthcare provider. Visit www.cdc.gov/COVID19 Contact your local or state public health department. Call [employer] at (toll free in the [place] Visit www.[employer] What Is an Emergency Use Authorization (EUA)? The [place] FDA has made LAGEVRIO available under an emergency access mechanism called an Emergency Use Authorization (EUA) The EUA is supported by a [place] [employer] and Human Service (HHS)declaration that circumstances exist to justify emergency use of drugs and biological products during the COVID-19 pandemic. LAGEVRIO for the treatment of adults with a current diagnosis of zyqa-kf-uyvegcex COVID-19 who are at high risk for progression to severe COVID- 19, including hospitalization or , and for whom alternative COVID-19 treatment options approved or authorized by FDA are not accessible or clinically appropriate, has not undergone the same type of review as an FDAapproved product. In issuing an EUA under the COVID-19 public health emergency, the FDA has determined, among other things, that based on the total amount of scientific evidence available including data from adequate and well-controlledclinical trials, if available, it is reasonable to believe that the product may be effective for diagnosing, treating, or preventing COVID-19, or a serious or life-threatening disease or condition caused by COVID-19; that the known and potential benefits of the product, when used to diagnose, treat, or prevent such disease or condition, outweigh the known and potential risks of such product; and that there are no adequate, approved, and available alternatives. All of these criteria must be met to allow for the product to be used in the treatment of patients during the COVID-19 pandemic. The EUA for LAGEVRIO is in effect for the duration of the COVID-19 declaration justifying emergency use of LAGEVRIO, unless terminated or revoked (after which LAGEVRIO may no longer be used under the EUA). Dannie. for: [employer] [address] For patent information: www.[facility]/research/patent Copyright [employer] [place], [place], [facility] and its affiliates. All rights reserved. [id number] Revised: June 2022 documented in this encounterSt. [facility]11-27-[facility]23 History of Present illness Narrative* Linda Reyez APRN.CNP - 04/12/2023 9:23 AM EST VIRTUAL VISIT PROGRESS NOTE This is an encounter initiated for an established patient, parent or guardian not originating from a related Evaluation & Management service provided within the previous 7 days nor leading to an Evaluation & Management service or procedure within the next 24 hours or soonest available appointment. This is a virtual visit. It required patient-provider interaction for the medical decision making as documented below. Patient has consented to this encounter. Persons Present: patient Data Reviewed: Most recent labs Most recent med list Patient has consented to patient-provider interaction via telephone/virtual visit for the medical decision making documented in this telephone/virtual visit encounter. Total Time Spent: 25 minutes I have communicated my name and active licensure. The patient's identity and physical location wereverified at the time of this visit. Either the patient or their legal appeals representative has been informed of the risks and benefits of -- and alternatives to -- treatment through a remote evaluation andconsents to proceed with the evaluation remotely. SUBJECTIVE Darren Reinoso is a 43 year old female here today for acute concern. Chief Complaint Patient presents with: Covid Follow Up HPI Darren presents today for concerns of testing positive for COVID. Presents via a virtual visit on [employer] platform. She does have a medical history significant for DM, HTN, EAMON, asthma, and obesity. No history of CKD, last kidney function done 02/2023 was within normal limits. She has had COVID previously. Symptoms of body aches, not feeling well. Follows with pulmonary with [facility]. Congested. She is on 3 liters home o2 as needed, has been using this the last several years so it is not new. Positive Wednesday, symptoms onset Wednesday, 4 days ago. Her medications were reviewed today and her list is now up to date. Medications Current Outpatient Medications Medication Sig nirmatrelvir tablet 300 mg (150 mg x 2) and ritonavir tablet 100 mg in a dose pack (PAXLOVID) Administer TWO pink nirmatrelvir 150 mg tablets and ONE white ritonavir 100 mg tablet for a total of three tablets twice daily. metoprolol tartrate, short acting, (LOPRESSOR) 25 mg tablet Take 1 tablet by mouth two times a day. atorvastatin (LIPITOR) 10 mg tablet Take 1 tablet by mouth once daily. hydrOXYzine HCl (ATARAX) 25 mg tablet Take 1 tablet by mouth at bedtime as needed for anxiety. naproxen (NAPROSYN) 500 mg tablet Take 1 tablet by mouth twice daily as needed (for pain/inflammation). Take with food. omeprazole (PRILOSEC) 40 mg capsule Take 1 capsule by mouth daily before breakfast. 1/2 hr before meal. flash glucose sensor (FREESTYLE ANA PAULA 2 SENSOR) kit 1 Each once daily. nortriptyline (PAMELOR) 50 mg capsule Take 1 capsule by mouth daily at bedtime. levothyroxine (SYNTHROID) 50 mcg tablet TAKE 1 TABLET BY MOUTH DAILY TAKE ON EMPTY STOMACH. FOR THYROID furosemide (LASIX) 40 mg tablet Take 1 tablet by mouth once daily. diclofenac (VOLTAREN) 1 % topical gel Apply 2 g to affected area twice daily as needed. fluticasone (FLONASE) 50 mcg/actuation nasal spray Use 2 Sprays in each nostril once daily. Rinse mouth after use. promethazine (PHENERGAN) 25 mg tablet Take 1 tablet by mouth every 8 hours as needed. TRUE METRIX GLUCOSE METER test blood sugar DIRECTED SYMBICORT 160-4.5 mcg/actuation inhaler cetirizine (ZYRTEC) 10 mg tablet montelukast (SINGULAIR) 10 mg tablet lamoTRIgine (LAMICTAL) 200 mg tablet famotidine (PEPCID) 20 mg tablet Take 1 tablet by mouth daily at bedtime. blood sugar diagnostic (BLOOD GLUCOSE TEST) test strip Test blood sugar(s) 4 times daily. Dx: Type 2 DM - Controlled E11.9 Insulin: No glucose 4 gram chewable tablet Take 3-4 tablets for hypoglycemia. Recheck blood sugar in 15 min after dose potassium chloride (K-TAB) 10 mEq tablet Take 1 tablet by mouth daily with breakfast. Take with [employer] flash glucose scanning reader ([employer] ANA PAULA 2 READER) 1 Each once daily. lidocaine (ANECREAM5) crea Apply to affected area as needed. albuterol HFA (VENTOLIN HFA) 90 mcg/actuation inhaler Inhale 2 Puffs as instructed every 4 hours asneeded for wheezing/shortness of breath. ipratropium-albuterol (DUONEB) 0.5 mg-3 mg(2.5 mg base)/3 mL nebu INHALE 3 ML INSTRUCTED EVERY 4HOURS NEEDED Current Facility-Administered Medications Medication Dose Route Frequency perflutren lipid microspheres 1.3 mL in NaCl (PF) 0.9% 10 mL injection (DEFINITY) INTRAVENOUS DIRECTED PRN sodium chloride 0.9 % (flush) 10 mL (BD POSIFLUSH) 10 mL INTRAVENOUS DIRECTED PRN ALLERGIES Allergen Reactions Amoxicillin Other: See Comments Yeast infection Codeine Darvocet A500 [Prop* Propoxyphene Rash, Unknown Sulfa (Sulfonamide * ACTIVE PROBLEM LIST Essential Hypertension - 03/06/2023 Hypothyroidism - 07/16/2021 Prediabetes - 07/16/2021 History of 2019 Novel Coronavirus Disease (Covid-19) - 07/16/2021 Trigger Thumb, Right Thumb - 07/16/2021 Bilateral Lower Extremity Edema - 11/04/2020 Lumbosacral Spondylosis Without Myelopathy - 09/09/2020 Cervical Spondylosis Without Myelopathy - 09/09/2020 Spinal Stenosis, Lumbar Region, Without Neurogenic Claudication - 09/09/2020 Lvh (Left Ventricular Hypertrophy) - 11/02/2019 Diastolic Dysfunction - 11/02/2019 Inflamed Acrochordon - 11/02/2018 Inflamed Seborrheic Keratosis - 11/02/2018 Lentigines - 11/02/2018 Eamon (Obstructive Sleep Apnea) - 04/04/2018 Asthma - 04/04/2018 Controlled Type 2 Diabetes Mellitus Without Complication, Without Long-Term Current Use of Insulin ([facility]) - 12/13/2017 Anxiety Plantar Fasciitis - 12/17/2016 Hyperlipidemia - 04/27/2016 Low Back Pain With Right-Sided Sciatica - 04/27/2016 Bilateral Hearing Loss - 05/09/2015 Bmi 50.0-59.9, Adult ([facility]) - 05/09/2015 Gerd (Gastroesophageal Reflux Disease) - 08/25/2012 Tobacco Use Disorder - 06/12/2008 Adjustment Disorder With Depressed Mood - 01/06/2005 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 Review of Systems Constitutional: Positive for chills, fatigue and fever. HENT: Positive for congestion and rhinorrhea. Respiratory: Positive for cough. Negative for shortness of breath, wheezing and stridor. Cardiovascular: Negative. OBJECTIVE LMP 12/15/2021 Physical Exam Constitutional: General: She is awake. She is not in acute distress. Appearance: She is ill-appearing. She is not toxic-appearing or diaphoretic. Comments: During the virtual visit she is alert, oriented, speaks in full sentences. Looks like shedoes not feel well but is not toxic-appearing and appears in no distress. Neurological: Mental Status: She is alert. Psychiatric: Behavior: Behavior is cooperative. ASSESSMENT/PLAN: 1. COVID - ICD9: 079.89, ICD10: U07.1 She does meet criteria to try Paxlovid for symptoms (see below documentation). Advised to hold Lipitor until 2 days after therapy complete. - NIRMATRELVIR 300 MG (150 MG X2)-RITONAVIR 100 MG TABLET,DOSE PACK Linda Reyez APRN.ICT SUPPORT ENGINEER Patient verbalizes understanding of instructions from today's visit and in agreement with treatmentplan. Questions answered. Agrees to call the office if symptoms do not improve or if they worsen. Return if symptoms worsen or fail to improve. Patient has consented to patient-provider interaction via telephone/virtual visit for the medical decision making documented in this telephone/virtual visit encounter. Total Time Spent: 25 minutes COVID-19 Oral Antivirals COVID-19 Oral Antiviral Review for TREATMENT of COVID-19: Paxlovid (nirmatrelvir/ritonavir) Paxlovid (nirmatrelvir/ritonavir) [x] 12 years and older (if 12-17 years, must weigh at least 40 kg) [x] Within 5 days of COVID-19 symptom onset [x] Not requiring hospitalization at any time for the management of COVID-19 [x] Not requiring supplemental oxygen or not requiring change in baseline supplemental oxygen (SpO2> 94% on room air or at baseline supplemental oxygen) [x] Not utilized for pre-exposure or post-exposure prophylaxis for prevention of COVID-19 [x] No severe renal impairment (eGFR < 30 mL/min) or severe hepatic impairment (Child-Hardy ClassC) [x] No pertinent drug-drug interactions or drug-drug interactions appropriately addressed [x] Meets high-risk clinical criteria for progression to severe COVID-19 infection as defined in the COVID-19 treatment considerations Criteria Met: Yes Nirmatrelvir/Ritonavir (Paxlovid) Considerations Paxlovid is FDA-approved for treatment of mild to moderate COVID-19 in adults who are at high risk for progression to severe COVID-19. Consider use of Paxlovid in the following examples of high risk patients (list is not all inclusive): Age over 65 years Cardiovascular and cerebrovascular disease Chronic disease state (kidney, liver, lung) Diabetes (type 1 or type 2) Immunocompromised state (cancer, solid organ or blood stem cell transplant, HIV) Obesity Paxlovid warnings include serious drug interactions (co-administration with drugs highly dependent on CYP3A for clearance), hypersensitivity reactions, hepatotoxicity, and risk of HIV-1 resistance development. Linda Reyez APRN.JACINTA documented in this encounterSt. [facility]11-03-2023 Miscellaneous Notes* Telephone Encounter - Marita Gonzalez RN - 03/19/2023 2:48 PM EDT Patient has been identified by name and date of : Yes, Marita Gonzalez RN Date 03/19/2023 Time 245 pm Pharmacy phones for refill(s): Requested Prescriptions Pending Prescriptions Disp Refills metoprolol tartrate, short acting, (LOPRESSOR) 25 mg tablet 60 tablet 5 Sig: Take 1 tablet by mouth two times a day. Date of last office visit in primary care: 03/03/2023 Date of next office visit in primary care: 04/14/2023 Last 2 Encounter Wt Readings: Date: Wt: 03/03/2023 142 kg (313 lb) 12/31/2022 139.7 kg (308 lb) Previous labs/tests for medication: Blood Pressure: BUN (mg/dL) Date Value 02/25/2023 10 07/01/2021 10 Sodium (mmol/L) Date Value 02/25/2023 139 07/01/2021 139 Last 1 Encounter BP Readings: Date: BP: 03/03/2023 128/78 Liver Function: ALT (U/L) Date Value 02/25/2023 16 04/24/2021 27 AST (U/L) Date Value 02/25/2023 18 04/24/2021 17 Please advise. Thank you. Marita Gonzalez RN. documented in this encounterSt. [facility]10-18-2023 History of Present illness Narrative* Older, Caryn, ARCHITECTURAL DRAFTSMAN.ICT SUPPORT ENGINEER - 03/03/2023 12:32 PM EDT CC: Patient presents with: Recheck: 2 month follow up HPI Darren Reinoso is a 43 year old female who presents today for 2 month follow up. Is under a large amount of stress in her family and is effecting her eating, exercise, self care, and sleep. HTN and HLD: Ms. Reinoso indicates that she is feeling well and denies any symptoms referable to elevated blood pressure. Specifically denies headache, chest pain, palpitations, dyspnea, and peripheraledema. Patient denies any side effects of her medication(s) and is compliant with their regimen. Stopped her statin therapy a while ago. She does not check BP's generally. Darren denies regular aerobicexercise. She watches her diet for sodium, low fat and low cholesterol some of the time. Last 3 Encounter BP Readings: Date: BP: 03/03/2023 128/78 12/31/2022 136/82 12/14/2022 116/74 DIABETES MELLITUS: Ms. Reinoso denies excessive thirst or increased frequency of urination, chest pain or dyspnea , numbness, tingling or pain in extremities, new or unusual visual symptoms, low sugar/hypoglycemic reactions, weight loss/gain, lightheadedness/dizziness, and bowel changes/loose stools.Follows a diabetic diet some of the time. Is currently not on medications She reports checking her glucose on a infrequent to not at all basis schedule. Has not work her ana paula in over a week but before states it was in the 130s. Patient's last HgA1C was Hemoglobin A1C (%) Date Value 02/25/2023 6.1 06/12/2022 5.9 04/24/2021 6.7 10/15/2020 6.1 Hemoglobin A1C (POCT) (%) Date Value 11/23/2022 6.2 01/23/2022 6.1 ) Was on trulicity a year ago which was stopped with abdominal pain and vomiting after increasing dose. Full workup found no cause. Has not had any abdominal pain, inability to eat, vomiting since earlier this year. Has had no further low blood sugars in over a few months and reports she is eating 2-3 meals a day without difficulty. Later in visit did share that her eating is not regular and variesfrom day to day depending on what she needs to do to care for family. Has been asked to be put backon this for glucose control and weight loss but hs not occurred as she had sever abdominal symptomswith increase. Tried phentermine but had low blood sugars as she did not eat often. Depression and Anxiety: [facility]. Is under a great deal of stress caring for her father an mother which is resulting in her staying up late at night and not getting sleep because she feels she has too much to do. Alcohol use: does not drink any alcohol Drug use: No Appetite: varies Suicidal Thoughts: No suicidal or homicidal ideation, intent or plan Support: feels like she is everyone else's support and has no one to support her Counseling: Yes, at the [facility] Hypothyroidism: Takes medication as ordered. Continues to gain weight and is exhausted. REVIEW OF SYSTEMS General: no fevers, no chills, no night sweats, no recurrent infections, no change in appetite, no change in energy, and no significant changes in weight Respiratory: no cough, no wheezing, no shortness of breath, no hemoptysis Cardiovascular: no chest pain, no chest pressure, no palpitations, and no swelling GI: No nausea, vomiting, or diarrhea Endocrine: no fatigue, no polyuria, no polyphagia, and no polydipsia Neurologic: No headache, weakness, numbness, tingling, dizziness, memory loss, syncope. PAST MEDICAL HISTORY Diagnosis Date Adjustment disorder with depressed mood Anxiety state, unspecified Dysmenorrhea Hearing loss no aids Other and unspecified ovarian cyst Ovarian cyst RECOVERING ALCOHOL, MARIJUANA & COCAINE PAST SURGICAL HISTORY Procedure Laterality Date COLONOSCOPY FLX DX W/COLLJ SPEC WHEN PFRMD 03/02/2017 Colonoscopy HEMORRHOIDECTOMY INCISE FINGER TENDON SHEATH Right 2002 INCISE FINGER TENDON SHEATH Right 07/23/2021 Right thumb and middle trigger finger releases LAPS ABD PRTM&OMENTUM DX W/WO SPEC BR/WA SPX Laparoscopy, diagnostic LIG/TRNSXJ FLP TUBE ABDL/VAG APPR UNI/BI Tubal ligation OVARIAN CYSTECTOMY 1990 ovarian cysts removed PAST SURGICAL HISTORY OF 1999 ORIF left ankle PAST SURGICAL HISTORY OF right middle finger surgery, staph debridment. PAST SURGICAL HISTORY OF 07/28/2013 left carpal tunnel release RECTAL EXAM UNDER ANESTHESIA 2015 REVISE MEDIAN N/CARPAL TUNNEL SURG 06/08/2014 right capral tunnel release TNOT ELBOW LATERAL/MEDIAL DEBRIDE OPEN Right 04/02/2017 Right elbow extensor tendon debridement TNOT ELBOW LATERAL/MEDIAL DEBRIDE OPEN Left 05/18/2018 Left elbow extensor tendon debridement TONSILLECTOMY PRIMARY/SECONDARY <AGE 12 Tonsillectomy ALLERGIES Amoxicillin, Codeine, Darvocet A500 [Propoxyphene N-Acetaminophen], Propoxyphene, and Sulfa (Sulfonamide Antibiotics) MEDICATIONS naproxen (NAPROSYN) 500 mg tablet^Take 1 tablet by mouth twice daily as needed (for pain/inflammation). Take with food.^Disp: 30 tablet^Rfl: 1 omeprazole (PRILOSEC) 40 mg capsule^Take 1 capsule by mouth daily before breakfast. 1/2 hr before meal.^Disp: 30 capsule^Rfl: 5 flash glucose sensor (FREESTYLE ANA PAULA 2 SENSOR) kit^1 Each once daily.^Disp: 2 Kit^Rfl: 3 nortriptyline (PAMELOR) 50 mg capsule^Take 1 capsule by mouth daily at bedtime.^Disp: 30 capsule^Rfl: 5 levothyroxine (SYNTHROID) 50 mcg tablet^TAKE 1 TABLET BY MOUTH DAILY TAKE ON EMPTY STOMACH. FOR THYROID^Disp: 30 tablet^Rfl: 5 furosemide (LASIX) 40 mg tablet^Take 1 tablet by mouth once daily.^Disp: 30 tablet^Rfl: 5 diclofenac (VOLTAREN) 1 % topical gel^Apply 2 g to affected area twice daily as needed.^Disp: 50 g^Rfl: 5 fluticasone (FLONASE) 50 mcg/actuation nasal spray^Use 2 Sprays in each nostril once daily. Rinse mouth after use.^Disp: 1 Each^Rfl: 11 metoprolol tartrate, short acting, (LOPRESSOR) 25 mg tablet^Take 1 tablet by mouth twice daily.^Disp: 60 tablet^Rfl: 5 promethazine (PHENERGAN) 25 mg tablet^Take 1 tablet by mouth every 8 hours as needed.^Disp: 30 tablet^Rfl: 0 ondansetron (ZOFRAN) 4 mg tablet^Take 1 tablet by mouth every 8 hours as needed for nausea/vomiting(for nausea.).^Disp: 60 tablet^Rfl: 1 TRUE METRIX GLUCOSE METER^test blood sugar DIRECTED^Disp: ^Rfl: SYMBICORT 160-4.5 mcg/actuation inhaler^^Disp: ^Rfl: cetirizine (ZYRTEC) 10 mg tablet^^Disp: ^Rfl: montelukast (SINGULAIR) 10 mg tablet^^Disp: ^Rfl: lamoTRIgine (LAMICTAL) 200 mg tablet^^Disp: ^Rfl: UNILET SUPER THIN LANCETS 30 gauge^Test blood sugar(s) 4 times daily.^Disp: ^Rfl: famotidine (PEPCID) 20 mg tablet^Take 1 tablet by mouth daily at bedtime.^Disp: ^Rfl: blood sugar diagnostic (BLOOD GLUCOSE TEST) test strip^Test blood sugar(s) 4 times daily. Dx: Type 2 DM - Controlled E11.9 Insulin: No^Disp: 50 Strip^Rfl: 11 Lancets lancets^Test blood sugar(s) 4 times daily. Dx: Type 2 DM - Controlled E11.9 Insulin: No^Disp: 100 Each^Rfl: 11 glucose 4 gram chewable tablet^Take 3-4 tablets for hypoglycemia. Recheck blood sugar in 15 min after dose^Disp: 30 tablet^Rfl: 0 atorvastatin (LIPITOR) 10 mg tablet^Take 1 tablet by mouth once daily.^Disp: 90 tablet^Rfl: 3 potassium chloride (K-TAB) 10 mEq tablet^Take 1 tablet by mouth daily with breakfast. Take with lasix^Disp: 90 tablet^Rfl: 3 flash glucose scanning reader (FREESTYLE ANA PAULA 2 READER)^1 Each once daily.^Disp: 1 Each^Rfl: 0 lidocaine (ANECREAM5) crea^Apply to affected area as needed.^Disp: 28 g^Rfl: 1 albuterol HFA (VENTOLIN HFA) 90 mcg/actuation inhaler^Inhale 2 Puffs as instructed every 4 hours asneeded for wheezing/shortness of breath.^Disp: 18 g^Rfl: 2 ipratropium-albuterol (DUONEB) 0.5 mg-3 mg(2.5 mg base)/3 mL nebu^INHALE 3 ML INSTRUCTED EVERY 4HOURS NEEDED^Disp: 180 mL^Rfl: 2 FAMILY HISTORY Problem Relation Age of Onset Heart Mother Hypertension Father Psychiatry Father Bipolar Psychiatry Sister No Known Problems Brother No Known Problems Maternal Grandmother Cancer Maternal Grandfather Diabetes Paternal Grandmother Stroke Paternal Grandmother Great Grandmother No Known Problems Paternal Grandfather Cancer Paternal Aunt other ([place]) Paternal Aunt Great aunt Colon Cancer No Family History Social History Tobacco Use Smoking status: Every Day Packs/day: .5 Types: Cigarettes Start date: 05/17/1992 Smokeless tobacco: Never Vaping Use Vaping Use: Never used Substance Use Topics Alcohol use: Not Currently Comment: Seldom- uses once every couple months Drug use: Not Currently Comment: marijuana h/o, 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 PHYSICAL EXAM BP 128/78 Pulse 74 Resp 16 Wt (!) 142 kg (313 lb) LMP 12/15/2021 SpO2 98% BMI 55.45 kg/m General Appearance: well appearing, in no acute distress, alert Pysch: mood and affect broad and appropriate Skin: Skin color, texture, turgor normal for age; Eyes: conjunctiva pink and moist, no icterus, sclera white, non-injected Lungs: Lungs clear to auscultation. No wheezing, rhonchi, rales. Heart: RRR without murmur, gallop, or rubs. No ectopy Health maintenance reviewed with patient: Hepatitis B Vaccine(1 of 3 - 3-dose series) Never done Covid-19 Vaccine(1) Never done Spirometry Never done BP Controlled (<130/80) Never done Pap Testing due on 08/23/2013 HPV Testing due on 08/23/2013 Mammogram Screening Never done Pneumococcal Vaccine(2 - PPSV23 or PCV20) due on 04/23/2021 Colorectal Cancer Screening due on 03/02/2022 Depression Assessment Never done DTaP,Tdap,Td Vaccine(2 - Td or Tdap) due on 10/03/2022 Influenza Vaccine(1) due on 01/15/2023 HbA1C due on 08/27/2023 Annual PCP Team Chronic Disease Visit due on 01/01/2024 LDL Cholesterol due on 02/26/2024 HIV Screening Completed HPV Vaccine Aged Out Urine Albumin:Creatinine Ratio Discontinued Dilated Retinal Exam Discontinued Diabetic Foot Exam Discontinued Hepatitis C Screening Discontinued DATA REVIEWED: Most recent labs ASSESSMENT/PLAN: 1. Controlled type 2 diabetes mellitus without complication, without long-term current use of insulin (HCC) - ICD9: 250.00, ICD10: E11.9 (primary diagnosis) - Controlled - Blood glucose monitoring on a continuous glucose monitoring schedule - Counseled on healthy diet and regular exercise - Discussed need for and benefit of weight loss. BMI 55.45 kg/(m^2) 2. Essential hypertension - ICD9: 401.9, ICD10: I10 - Controlled - Continue current medications - Recommend home blood pressure monitoring, to bring results to next visit - Encouraged sodium restriction, DASH or Mediterranean diet - Recommend regular aerobic exercise 3. Other hyperlipidemia - ICD9: 272.4, ICD10: E78.49 - continuing current dose as patient wanting to try and eat healthier and lose weight - ATORVASTATIN 10 MG TABLET The 10-year ASCVD risk score (Kehinde VILA, et al., 2019) is: 12.1% Values used to calculate the score: Age: 43 years Sex: Female Is Non- : No Diabetic: Yes Tobacco smoker: Yes Systolic Blood Pressure: 128 mmHg Is BP treated: Yes HDL Cholesterol: 48 mg/dL Total Cholesterol: 246 mg/dL 4. Anxiety - ICD9: 300.00, ICD10: F41.9 - uncontrolled and resulting in insomnia - hydroxyzine as ordered - keep upcoming appointment with psychiatry and counseling - Reviewed concept of neurochemical imbalance wth depression/anxiety, treatment options and benefits of counseling in combination with medication. Also reviewed benefits of sleep hygeine, diet and exercise - Instructed patient to contact office or [id number] after-hours promptly should condition worsen or any new symptoms appear. - [facility] and after hours crisis line - will send report to [facility] so they know PRN hydroxyzine was started to help with anxiety related insomnia until she is able to be seen by them. 5. Adjustment disorder with depressed mood - ICD9: 309.0, ICD10: F43.21 As above 6. Hypothyroidism, unspecified type - ICD9: 244.9, ICD10: E03.9 - Instructed patient on importance of taking on an empty stomach either first thing in the morning or at bedtime. - TSH within acceptable ranges. Symptoms most likely result of anxiety depression and current family stress 7. Weight gain - ICD9: 783.1, ICD10: R63.5 - informed patient I would not be starting an medication as she is under so much stress she is not eating regular and not monitoring her glucose. - patient to follow up in 6 weeks to discuss this further. Prescription instructions reviewed with patient as applicable. Potential red flag symptoms discussed with the patient. Reviewed appropriate action plan to take if red flag symptoms occur. Patient agreeable to treatment plan. Caryn Lowery APRN.CNP documented in this encounterSt. Anthony'[facility]10-02-2023 Procedure [facility]08-29-2023 Hospital Discharge instructions Patient Education 01/12/2023 00:09:15 Contact Dermatitis Contact Dermatitis Contact dermatitis is a skin rash caused by something that touches the skin and makes it irritated and inflamed. Your skin may be red, swollen, dry, and may be cracked. Blisters may form and ooze. The rash will itch. Contact dermatitis can form on the face and neck, backs of hands, forearms, genitals, and lower legs. People can get contact dermatitis from lots of sources. These include: Plants such as poison landen, oak, or sumac Chemicals in hair dyes and rinses, soaps, solvents, waxes, fingernail tuvaluan, and deodorants Jewelry or watchbands made of nickel Contact dermatitis is not passed from person to person. Talk with your healthcare provider about what may have caused the rash. A type of allergy testing called patch testing may be used to discover what you are allergic to. You will need to avoid the source of your rash in the future to prevent it from coming back. Treatment is done to relieve itching and prevent the rash from coming back. The rash should go awayin a few days to a few weeks. Home care Your healthcare provider may prescribe medicine to relieve swelling and itching. Follow all instructions when using these medicines. General care: Avoid anything that heats up your skin, such as hot showers or baths, or direct sunlight. This can make itching worse. Apply cold compresses to soothe your sores to help relieve your symptoms. Do this for 30 minutes 3 to 4 times a day. You can make a cold compress by soaking a cloth in cold water. Squeeze out excess water. You can add colloidal oatmeal to the water to help reduce itching. For severe itching in a small area, apply an ice pack wrapped in a thin towel. Do this for 20 minutes 3 to 4 times a day. You can also try wet dressings. One way to do this is to wear a wet piece of clothing under a dry one. Wear a damp shirt under a dry shirt if your upper body is affected. This can relieve itching andprevent you from scratching the affected area. You can also help relieve large areas of itching by taking a lukewarm bath with colloidal oatmeal added to the water. Use hydrocortisone cream for redness and irritation, unless another medicine was prescribed. You can also use benzocaine anesthetic cream or spray. Calamine lotion can also relieve mild symptoms. Use oral diphenhydramine to help reduce itching. You can buy this antihistamine at [employer] and [employer]. It can make you sleepy, so use lower doses during the daytime. Or you can use loratadine. This is an antihistamine that will not make you sleepy. Do not use diphenhydramine if you have glaucoma or have trouble urinating due to an enlarged prostate. If a plant causes your rash, make sure to wash your skin and the clothes you were wearing when you came into contact with the plant. This is to wash away the plant oils that gave you the rash and prevent more or worse symptoms. Stay away from the substance or object that causes your symptoms. If you can t avoid it, wear gloves or some other type of protection. Follow-up care Follow up with your healthcare provider, or as advised. When to seek medical advice Call your healthcare provider right away if any of these occur: Spreading of the rash to other parts of your body Severe swelling of your face, eyelids, mouth, throat or tongue Trouble urinating due to swelling in the genital area Fever of 100.4 F (38 C) or higher Redness or swelling that gets worse Pain that gets worse Foul-smelling fluid leaking from the skin Yellow-brown crusts on the open blisters [id number] [employer]. [address] [place] [address]. All rights reserved. This information is not intended as a substitute for professional medical care. Always follow yourhealthcare professional's instructions. Follow Up Care 01/11/2023 23:11:44 With:BABAR PHILLIP MD Address: [address] [place] [address]- When:2-4 days [facility] Robin 08-29-2023 Note Discharge Instructions Thank you for allowing [facility] to assist you with your healthcare needs. The following is importantdischarge information regarding your hospital visit. Diagnosis from Today's Visit Itching What to Do Next Instructions from Your Care Team No qualifying data available. Post Acute Orders No qualifying data available. You Need to Schedule the Following Appointments Follow Up with BABAR PHILLIP MD When Within 2-4 days Where: [address] [place] [address]- Allergies amoxicillin codeine penicillin sulfa drugs Medications Please ask your primary doctor or pharmacist before taking any other medication not listed, including over the counter drugs, herbal medications, vitamins and or supplements as they may interact withyour home medications. What How Much When Why Instructions Last Dose New predniSONE (predniSONE 10 mg oral tablet) 1 tab(s) by mouth Two (2) times a day Duration: 3 Days with food Printed Prescription Unchanged atorvastatin by mouth Once a day Unchanged furosemide (Lasix 20 mg oral tablet) 2 tab(s) by mouth Once a day Acute exacerbation of COPD Edema of both lower legs Unchanged loratadine (loratadine 10 mg oral tablet) 1 tab(s) by mouth Once a day before a meal Unchanged methylPREDNISolone (Medrol Dosepak 4 mg oral tablet) 1 Packet(s) by mouth Once a day Acute exacerbation of COPD Edema of both lower legs Duration: 6 Days as directed on package labeling Unchanged nortriptyline (nortriptyline 10 mg oral capsule) 1 cap by mouth Three (3) times a day Unchanged ranitidine (ranitidine 150 mg oral tablet (NF)) 1 tab(s) by mouth Once a day (in the morning) Unchanged tiZANidine (tiZANidine 2 mg oral tablet) 2 tab(s) by mouth Every 8 hours Unchanged zolpidem (Ambien) by mouth Daily at bedtime Please take this list to your next doctor s visit. Bring all medications you take, including over the counter medications, herbals and other supplements with you to your doctor s visit. Patients and families are reminded to discard old lists and to update any records with all medication providers or retail pharmacies. Medication Leaflets prednisone (MARLENI Ordoñez What is the most important information I should know about prednisone? You should not use prednisone if you have a fungal infection anywhere in your body. You should not stop using prednisone suddenly. Follow your doctor's instructions about tapering your dose. What is prednisone? Prednisone is a steroid that reduces inflammation in the body, and also suppresses your immune system. Prednisone is used to treat many different conditions such as hormonal disorders, skin diseases, arthritis, lupus, psoriasis, allergic conditions, ulcerative colitis, Crohn's disease, eye diseases, lung diseases, asthma, tuberculosis, blood cell disorders, kidney disorders, leukemia, lymphoma, multi ple sclerosis, organ transplant rejection, swelling from a brain tumor or injury. Prednisone may also be used for purposes not listed in this medication guide. What should I discuss with my healthcare provider before taking prednisone? You should not use prednisone if you are allergic to it, or if you have a fungal infection anywherein your body. Steroid medication can weaken your immune system, making it easier for you to get an infection or worsening an infection you already have. Tell your doctor about any illness or infection you've had within the past several weeks. Tell your doctor if you have ever had: heart problems, high blood pressure, or a heart attack; glaucoma or cataracts; herpes infection of the eyes; past or present tuberculosis; a parasite infection that causes diarrhea (such as threadworms); any illness that causes diarrhea; underactive thyroid; diabetes; a stomach ulcer, diverticulitis; a colostomy or ileostomy; osteoporosis or low bone mineral density (steroid medication can increase your risk of bone loss); low levels of calcium or potassium in your blood; cirrhosis or other liver disease; mental illness or psychosis; or a muscle disorder such as myasthenia gravis. Long-term use of steroids may lead to bone loss (osteoporosis), especially if you smoke or drink alcohol, if you do not exercise, or if you do not get enough vitamin D or calcium in your diet. It is not known whether this medicine will harm an unborn baby. Tell your doctor if you are or plan to become . You should not breastfeed while using prednisone. How should I take prednisone? Follow all directions on your prescription label and read all medication guides or instruction sheets. Your doctor may occasionally change your dose. Use the medicine exactly as directed. Prednisone is taken daily or every other day, depending on the condition being treated. You may need to take the medicine at a certain time of day. Follow your doctor's instructions about when and how often to take this medicine. Take with food if prednisone upsets your stomach. Measure liquid medicine carefully. Use the dosing syringe provided, or use a medicine dose-measuring device (not a kitchen spoon). Swallow the delayed-release tablet whole and do not crush, chew, or break it. Prednisone can weaken (suppress) your immune system, and you may get an infection more easily. Callyour doctor if you have signs of infection (fever, weakness, cold or flu symptoms, skin sores, diarrhea, frequent or recurring illness). If you have major surgery or a severe injury or infection, your prednisone dose needs may change. Make sure any doctor caring for you knows you are using this medicine. If you use this medicine long-term, you may need medical tests and vision exams. In case of emergency, wear or carry medical identification to let others know you use a steroid. You should not stop using prednisone suddenly. Follow your doctor's instructions about tapering your dose. Store at room temperature away from moisture, heat, and light. What happens if I miss a dose? Take the medicine as soon as you can, but skip the missed dose if it is almost time for your next dose. Do not take two doses at one time. What happens if I overdose? Seek emergency medical attention or call the Poison Help line at . High doses or long-term use of prednisone can lead to thinning skin, easy bruising, changes in bodyfat (especially in your face, neck, back, and waist), increased acne or facial hair, menstrual problems, impotence, or loss of interest in sex. What should I avoid while taking prednisone? Do not receive a 'live' vaccine while using prednisone. The vaccine may not work as well and may not fully protect you from disease. Live vaccines include measles, mumps, rubella (MMR), polio, rotavirus, typhoid, yellow fever, varicella (chickenpox), zoster (shingles), and nasal flu (influenza) vaccine. Avoid being near people who are sick or have infections. Call your doctor for preventive treatment if you are exposed to chickenpox or measles. These conditions can be serious or even fatal in peoplewho are using steroid medicine. Avoid drinking alcohol. What are the possible side effects of prednisone? Get emergency medical help if you have signs of an allergic reaction: hives; difficult breathing; swelling of your face, lips, tongue, or throat. Call your doctor at once if you have: muscle pain or weakness; blurred vision, tunnel vision, eye pain, or seeing halos around lights; severe depression, changes in personality, unusual thoughts or behavior; bloody or tarry stools, coughing up blood or vomit that looks like coffee grounds; swelling, rapid weight gain, feeling short of breath; irregular heartbeats; severe headache, pounding in your neck or ears; decreased adrenal gland hormones--muscle weakness, tiredness, diarrhea, nausea, menstrual changes, skin discoloration, craving salty foods, and feeling light- headed; or low potassium level--leg cramps, constipation, irregular heartbeats, fluttering in your chest, increased thirst or urination, numbness or tingling, muscle weakness or limp feeling. Prednisone can affect growth in children. Tell your doctor if your child is not growing at a normalrate while using this medicine. Common side effects may include: weight gain (especially in your face or your upper back and torso); increased appetite; mood changes, trouble sleeping; changes in your menstrual periods; problems with memory or thought; muscle or joint pain; weakness; headache, dizziness, spinning sensation; nausea, bloating, loss of appetite; slow wound healing; or acne, increased sweating, thinning skin, bruising, pinpoint spots under your skin. This is not a complete list of side effects and others may occur. Call your doctor for medical advice about side effects. You may report side effects to FDA at 8-994-REZ-7275. What other drugs will affect prednisone? Sometimes it is not safe to use certain medications at the same time. Some drugs can affect your blood levels of other drugs you take, which may increase side effects or make the medications less effective. Tell your doctor about all your current medicines. Many drugs can affect prednisone, especially: bupropion; cyclosporine; digoxin; ketoconazole; an antibiotic; control pills or hormone replacement therapy; a diuretic or 'water pill'; insulin or oral diabetes medicine; a blood thinner--warfarin, Coumadin, Jantoven; or NSAIDs (nonsteroidal anti-inflammatory drugs)--aspirin, ibuprofen (Advil, Motrin), naproxen (Aleve), celecoxib, diclofenac, indomethacin, meloxicam, and others. This list is not complete and many other drugs may affect prednisone. This includes prescription and doll-kai-wfirrwa medicines, vitamins, and herbal products. Not all possible drug interactions are listed here. Where can I get more information? Your pharmacist can provide more information about prednisone. Remember, keep this and all other medicines out of the reach of children, never share your medicines with others, and use this medication only for the indication prescribed. Every effort has been made to ensure that the information provided by [employer]. ('[employer]') is accurate, up-to-date, and complete, but no guarantee is made to that effect. Drug information contained herein may be time sensitive. [employer] information has been compiled for use by healthcare practitioners and consumers in the [place] and therefore [employer] does not warrant that uses outside of the [place] are appropriate, unless specifically indicated otherwise. [employer] drug information does not endorse drugs, diagnose patients or recommend therapy. [employer] drug information isan informational resource designed to assist licensed healthcare practitioners in caring for their p atients and/or to serve consumers viewing this service as a supplement to, and not a substitute for, the expertise, skill, knowledge and judgment of healthcare practitioners. The absence of a warningfor a given drug or drug combination in no way should be construed to indicate that the drug or drug combination is safe, effective or appropriate for any given patient. [employer] does not assume any responsibility for any aspect of healthcare administered with the aid of information [employer] provides. The information contained herein is not intended to cover all possible uses, directions, precautions, warnings, drug interactions, allergic reactions, or adverse effects. If you have questions about the drugs you are taking, check with your doctor, nurse or pharmacist. Copyright 4476-4937 [employer]. Version: 10.. Revision Date: 08/11/2018. Education Materials Contact Dermatitis Contact dermatitis is a skin rash caused by something that touches the skin and makes it irritated and inflamed. Your skin may be red, swollen, dry, and may be cracked. Blisters may form and ooze. The rash will itch. Contact dermatitis can form on the face and neck, backs of hands, forearms, genitals, and lower legs. People can get contact dermatitis from lots of sources. These include: Plants such as poison landen, oak, or sumac Chemicals in hair dyes and rinses, soaps, solvents, waxes, fingernail tuvaluan, and deodorants Jewelry or watchbands made of nickel Contact dermatitis is not passed from person to person. Talk with your healthcare provider about what may have caused the rash. A type of allergy testing called patch testing may be used to discover what you are allergic to. You will need to avoid the source of your rash in the future to prevent it from coming back. Treatment is done to relieve itching and prevent the rash from coming back. The rash should go awayin a few days to a few weeks. Home care Your healthcare provider may prescribe medicine to relieve swelling and itching. Follow all instructions when using these medicines. General care: Avoid anything that heats up your skin, such as hot showers or baths, or direct sunlight. This can make itching worse. Apply cold compresses to soothe your sores to help relieve your symptoms. Do this for 30 minutes 3 to 4 times a day. You can make a cold compress by soaking a cloth in cold water. Squeeze out excess water. You can add colloidal oatmeal to the water to help reduce itching. For severe itching in a small area, apply an ice pack wrapped in a thin towel. Do this for 20 minutes 3 to 4 times a day. You can also try wet dressings. One way to do this is to wear a wet piece of clothing under a dry one. Wear a damp shirt under a dry shirt if your upper body is affected. This can relieve itching andprevent you from scratching the affected area. You can also help relieve large areas of itching by taking a lukewarm bath with colloidal oatmeal added to the water. Use hydrocortisone cream for redness and irritation, unless another medicine was prescribed. You can also use benzocaine anesthetic cream or spray. Calamine lotion can also relieve mild symptoms. Use oral diphenhydramine to help reduce itching. You can buy this antihistamine at [employer]. It can make you sleepy, so use lower doses during the daytime. Or you can use loratadine. This is an antihistamine that will not make you sleepy. Do not use diphenhydramine if you have glaucoma or have trouble urinating due to an enlarged prostate. If a plant causes your rash, make sure to wash your skin and the clothes you were wearing when you came into contact with the plant. This is to wash away the plant oils that gave you the rash and prevent more or worse symptoms. Stay away from the substance or object that causes your symptoms. If you can t avoid it, wear gloves or some other type of protection. Follow-up care Follow up with your healthcare provider, or as advised. When to seek medical advice Call your healthcare provider right away if any of these occur: Spreading of the rash to other parts of your body Severe swelling of your face, eyelids, mouth, throat or tongue Trouble urinating due to swelling in the genital area Fever of 100.4 F (38 C) or higher Redness or swelling that gets worse Pain that gets worse Foul-smelling fluid leaking from the skin Yellow-brown crusts on the open blisters [id number] [employer]. [address] [place] [address]. All rights reserved. This information is not intended as a substitute for professional medical care. Always follow yourhealthcare professional's instructions. Additional Information VACCINATE! IT SAVES LIVES! Members of the community who have not yet received the COVID-19 vaccine and would like to receive it can visit one of [facility] vaccine clinics. There are many vaccine clinic locations within the [facility]. For locations and available times, please visit www.[email or web address].[email or web address]/. It is important to note that some COVID mobile vaccine clinics are held outdoors and may be canceled in rainy or stormy conditions. To learn more about pediatric vaccinations (ages 5-11), we invite you to visit the [facility] webpage. [email or web address] [email or web address] learn more about the COVID-19 vaccine, we invite you to visit the CDC website for a list of frequently asked questions. https://www.cdc.gov/coronavirus/2019-ncov/vaccines/faq.html [facility] Patient Portal Access Instructions: Stay connected with your healthcare team and access your personal medical information anytime with the [facility] Portal. If you would like a full copy of your medical records please contact the [facility] Medical Records Department Wednesday through Wednesday between 8a.m. and 4:30p.m. Please follow the directions below to access the portal: 1.Access the email account you provided upon registration to the [facility].2.Look for an invitation email from [facility].3.Open the email and access the invitation link: Accept Invitation to [facility]4.Fill in the required brewster to create your account. Sign into [email or web address].[email or web address] with your username and password that you created in the above steps to stay up to date. You can then view a summary of results, a summary of your visits, and the ability to download your summaries to your computer or send the information securely to a physician. Remember that your healthcare information is confidential, so carefully consider who you will allow to register on the [facility] Patient Portal for access to your information. You can also access the [facility] Patient Portal on the [employer] dominguez. Simply click on Health Records under [employer] and then click on the [employer] logo. HOW TO SAFELY DISPOSE OF PRESCRIPTION MEDICATIONS Please use one of the following methods to safely dispose of your unused medications. 1.Use a drug disposal kit: the drug disposal pouch allows you to safely discard your old and unuseddrugs. Ask your nurse to give you one when you are discharged.2.Visit a local take-back location: Many local pharmacies and police departments have programs that collect old and unwanted prescriptiondrugs. Call your local pharmacy or go to http://bit.Disconnect/2O4Me6b to find one close to you.3.Make use of household items: Use cat litter or old coffee grounds to dispose medications if other options arenot available. Mix your drugs with these household products, seal them in an airtight container andthrow it into the garbage. Call [facility]: [phone] to be sure your drugs can be disposed of in this way. Some medicines may require a different approach.4.Never flush your medications down the toilet. IF YOU HAVE BEEN PRESCRIBED AN OPIOIDS FOR PAIN If you have been prescribed an opioid (such as hydrocodone, oxycodone or morphine), it is critical to understand the possible side effects and risks of opioid pain medications. Even when taken as directed, opioids can have several side effects including: Tolerance, meaning you might need to take more of a medication for the same pain relief. Nausea, vomiting and/or constipation. Sleepiness, dizziness, dry mouth, confusion, depression or itching. Physical dependence, meaning you have withdrawal symptoms when a medication is stopped ? this can develop within a few days. KNOW YOUR RESPONSIBILITIES It is important to know exactly how much and how often to take the opioid pain medications you are prescribed. Never take opioids in higher amounts or more often than prescribed. Do not combine opioids with alcohol or other drugs that cause drowsiness, such as benzodiazepines, also known as benzos,including diazepam and alprazolam, muscle relaxants or sleep aids. Never sell or share prescriptionopioids. This is illegal. Store opioids in a secure place and out of reach of others (including children, family, friends and visitors). The last page(s) of this document has been signed and retained as a CHART COPY Signatures Patient Education Materials Contact Dermatitis Medication Leaflets prednisone My discharge plan and instructions have been reviewed and explained to me and I,DARREN REINOSO understand my current condition and have read and understand these discharge instructions. I have received a written copy of the plan/instructions. If I have questions, I am aware that I should contact my d octor. Patient/Evening Sitter Signature: Date/Time: Relationship to Patient: Witness Name/Signature: Date/Time: [facility]08-21-2023 Procedure [facility]08-17-2023 History of Present illness Narrative* Caryn Lowery APRN.ICT SUPPORT ENGINEER - 12/31/2022 11:18 AM EDT CC: Patient presents with: Recheck: Adipex follow up HPI Darren Reinoso is a 42 year old female who presents today for weight loss. Was started on adipex 4 weeks ago but had low blood sugar results and was seen twice in the last month by other providers for low glucose. Last adipex was 4 days ago without any continued low blood sugars. Is trying to eat small amounts regularly to keep blood sugar up. Has seen a photographic laboratory technician and has follow up appointment in January. Patient reports eating healthy food option and in very smallamounts but still unable to lose weight. Is frustrated and very upset with her inability to lose weight. For her to have her knee replacement she has to lose weight. Was on trulicity for her diabetes but suddenly with unexplained severe abdominal pain and nausea. Had full workup, saw GI, and had EGD and colonoscopy without being able to fully identify the cause. No longer with pain but does still have decreased appetite. Is trying to walk more for example walked around [employer] for over an hour. REVIEW OF SYSTEMS See HPI PAST MEDICAL HISTORY Diagnosis Date Adjustment disorder with depressed mood Anxiety state, unspecified Dysmenorrhea Hearing loss no aids Other and unspecified ovarian cyst Ovarian cyst RECOVERING ALCOHOL, MARIJUANA & COCAINE PAST SURGICAL HISTORY Procedure Laterality Date COLONOSCOPY FLX DX W/COLLJ SPEC WHEN PFRMD 03/02/2017 Colonoscopy HEMORRHOIDECTOMY INCISE FINGER TENDON SHEATH Right 2002 INCISE FINGER TENDON SHEATH Right 07/23/2021 Right thumb and middle trigger finger releases LAPS ABD PRTM&OMENTUM DX W/WO SPEC BR/WA SPX Laparoscopy, diagnostic LIG/TRNSXJ FLP TUBE ABDL/VAG APPR UNI/BI Tubal ligation OVARIAN CYSTECTOMY 1990 ovarian cysts removed PAST SURGICAL HISTORY OF 1999 ORIF left ankle PAST SURGICAL HISTORY OF right middle finger surgery, staph debridment. PAST SURGICAL HISTORY OF 07/28/2013 left carpal tunnel release RECTAL EXAM UNDER ANESTHESIA 2014 REVISE MEDIAN N/CARPAL TUNNEL SURG 06/08/2014 right capral tunnel release TNOT ELBOW LATERAL/MEDIAL DEBRIDE OPEN Right 04/02/2017 Right elbow extensor tendon debridement TNOT ELBOW LATERAL/MEDIAL DEBRIDE OPEN Left 05/18/2018 Left elbow extensor tendon debridement TONSILLECTOMY PRIMARY/SECONDARY <AGE 12 Tonsillectomy ALLERGIES Amoxicillin, Codeine, Darvocet A500 [Propoxyphene N-Acetaminophen], Propoxyphene, and Sulfa (Sulfonamide Antibiotics) MEDICATIONS omeprazole (PRILOSEC) 40 mg capsule^Take 1 capsule by mouth daily before breakfast. 1/2 hr before meal.^Disp: 30 capsule^Rfl: 5 flash glucose sensor (FREESTYLE ANA PAULA 2 SENSOR) kit^1 Each once daily.^Disp: 2 Kit^Rfl: 3 nortriptyline (PAMELOR) 50 mg capsule^Take 1 capsule by mouth daily at bedtime.^Disp: 30 capsule^Rfl: 5 levothyroxine (SYNTHROID) 50 mcg tablet^TAKE 1 TABLET BY MOUTH DAILY TAKE ON EMPTY STOMACH. FOR THYROID^Disp: 30 tablet^Rfl: 5 furosemide (LASIX) 40 mg tablet^Take 1 tablet by mouth once daily.^Disp: 30 tablet^Rfl: 5 naproxen (NAPROSYN) 500 mg tablet^Take 1 tablet by mouth twice daily as needed (for pain/inflammation). Take with food.^Disp: 15 tablet^Rfl: 1 diclofenac (VOLTAREN) 1 % topical gel^Apply 2 g to affected area twice daily as needed.^Disp: 50 g^Rfl: 5 fluticasone (FLONASE) 50 mcg/actuation nasal spray^Use 2 Sprays in each nostril once daily. Rinse mouth after use.^Disp: 1 Each^Rfl: 11 metoprolol tartrate, short acting, (LOPRESSOR) 25 mg tablet^Take 1 tablet by mouth twice daily.^Disp: 60 tablet^Rfl: 5 promethazine (PHENERGAN) 25 mg tablet^Take 1 tablet by mouth every 8 hours as needed.^Disp: 30 tablet^Rfl: 0 ondansetron (ZOFRAN) 4 mg tablet^Take 1 tablet by mouth every 8 hours as needed for nausea/vomiting(for nausea.).^Disp: 60 tablet^Rfl: 1 TRUE METRIX GLUCOSE METER^test blood sugar DIRECTED^Disp: ^Rfl: SYMBICORT 160-4.5 mcg/actuation inhaler^^Disp: ^Rfl: cetirizine (ZYRTEC) 10 mg tablet^^Disp: ^Rfl: montelukast (SINGULAIR) 10 mg tablet^^Disp: ^Rfl: lamoTRIgine (LAMICTAL) 200 mg tablet^^Disp: ^Rfl: UNILET SUPER THIN LANCETS 30 gauge^Test blood sugar(s) 4 times daily.^Disp: ^Rfl: famotidine (PEPCID) 20 mg tablet^Take 1 tablet by mouth daily at bedtime.^Disp: ^Rfl: blood sugar diagnostic (BLOOD GLUCOSE TEST) test strip^Test blood sugar(s) 4 times daily. Dx: Type 2 DM - Controlled E11.9 Insulin: No^Disp: 50 Strip^Rfl: 11 Lancets lancets^Test blood sugar(s) 4 times daily. Dx: Type 2 DM - Controlled E11.9 Insulin: No^Disp: 100 Each^Rfl: 11 glucose 4 gram chewable tablet^Take 3-4 tablets for hypoglycemia. Recheck blood sugar in 15 min after dose^Disp: 30 tablet^Rfl: 0 atorvastatin (LIPITOR) 10 mg tablet^Take 1 tablet by mouth once daily.^Disp: 90 tablet^Rfl: 3 potassium chloride (K-TAB) 10 mEq tablet^Take 1 tablet by mouth daily with breakfast. Take with lasix^Disp: 90 tablet^Rfl: 3 flash glucose scanning reader (FREESTYLE ANA PAULA 2 READER)^1 Each once daily.^Disp: 1 Each^Rfl: 0 lidocaine (ANECREAM5) crea^Apply to affected area as needed.^Disp: 28 g^Rfl: 1 albuterol HFA (VENTOLIN HFA) 90 mcg/actuation inhaler^Inhale 2 Puffs as instructed every 4 hours asneeded for wheezing/shortness of breath.^Disp: 18 g^Rfl: 2 ipratropium-albuterol (DUONEB) 0.5 mg-3 mg(2.5 mg base)/3 mL nebu^INHALE 3 ML INSTRUCTED EVERY 4HOURS NEEDED^Disp: 180 mL^Rfl: 2 FAMILY HISTORY Problem Relation Age of Onset Heart Mother Hypertension Father Psychiatry Father Bipolar Psychiatry Sister No Known Problems Brother No Known Problems Maternal Grandmother Cancer Maternal Grandfather Diabetes Paternal Grandmother Stroke Paternal Grandmother Great Grandmother No Known Problems Paternal Grandfather Cancer Paternal Aunt other ([place]) Paternal Aunt Great aunt Colon Cancer No Family History Social History Tobacco Use Smoking status: Every Day Packs/day: .5 Types: Cigarettes Start date: 05/17/1992 Smokeless tobacco: Never Vaping Use Vaping Use: Never used Substance Use Topics Alcohol use: Not Currently Comment: Seldom- uses once every couple months Drug use: Not Currently Comment: marijuana h/o, 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 PHYSICAL EXAM BP 136/82 Pulse 76 Resp 16 Wt (!) 139.7 kg (308 lb) LMP 12/15/2021 SpO2 96% BMI 54.56 kg/m General Appearance: well appearing, in no acute distress, alert Pysch: mood varies from tearful to angry to neutral. Gets very upset when discussing inability to prescribe weight loss medications. Eyes: conjunctiva pink and moist, no icterus, sclera white, non-injected Health maintenance reviewed with patient: HEPATITIS B(1 of 3 - 3-dose series) Never done COVID-19 VACCINE(1) Never done PNEUMOCOCCAL(1 - PCV) Never done SPIROMETRY Never done PAP TESTING due on 08/23/2013 HPV TESTING due on 08/23/2013 MAMMOGRAM Never done COLORECTAL CANCER SCREENING due on 03/02/2022 DEPRESSION ASSESSMENT Never done DTAP,TDAP,TD(2 - Td or Tdap) due on 10/03/2022 INFLUENZA(1) due on 01/15/2023 LDL CHOLESTEROL due on 03/10/2023 HBA1C due on 05/26/2023 ANNUAL PCP TEAM CHRONIC DISEASE VISIT due on 12/15/2023 BP CONTROLLED (<130/80) due on 12/15/2023 HIV SCREENING Completed HPV VACCINE Aged Out URINE ALBUMIN:CREATININE RATIO Discontinued DILATED RETINAL EXAM Discontinued DIABETIC FOOT EXAM Discontinued HEPATITIS C SCREENING Discontinued DATA REVIEWED: No new labs ASSESSMENT/PLAN: 1. Morbid obesity with BMI of 50.0-59.9, adult (HCC) - ICD9: 278.01, V85.43, ICD10: E66.01, Z68.43 (primary diagnosis) - adipex discontinued due to hypoglycemia. Patient very angry about this even with detailed reasonson why I cannot prescribe at this time. - continue with nutritional therapy to evaluate appropriate diet options to maintain glucose control and help facilitate weight loss. - patient requesting trulicity again. With the severe pain and nausea while on the trulicity with no other cause found I do not recommend restarting this. Also with her hypoglycemic issues this wouldnot be appropriate at this time. Patient very upset about this as well. - discussed bariatric surgery as beng her best option. States she has talked to them and they refuse to consider until she quits smoking and patient states she will never do that. States she will getillegal drugs off the street before she would quit smoking. Discussed maybe a second opinion of different provider would be a good idea. - no new provider scheduled but patient to keep food diary at home along with monitoring her diabetes closely. Return in 2 months to evaluate chronic conditions and weight loss. 2. Controlled type 2 diabetes mellitus without complication, without long-term current use of insulin (HCC) - ICD9: 250.00, ICD10: E11.9 - will review further at upcoming appointment - HGB A1C - CBC + DIFF - COMP METABOLIC PANEL 3. Other hyperlipidemia - ICD9: 272.4, ICD10: E78.49 - will review further at upcoming appointment - COMP METABOLIC PANEL - LIPID PANEL BASIC 4. Hypothyroidism, unspecified type - ICD9: 244.9, ICD10: E03.9 - will review further at upcoming appointment - TSH BLD Prescription instructions reviewed with patient as applicable. Potential red flag symptoms discussed with the patient. Reviewed appropriate action plan to take if red flag symptoms occur. Patient agreeable to treatment plan. Caryn Lowery APRN.CNP documented in this encounterSt. [facility]08-07-2023 Instructions* Patient Instructions* Ginna Gonzales, RD - 12/21/2022 1:35 PM EDT 1. Follow partial liquid protein diet; have a nutrition drink 160-250 calories and 15-30 grams protein for breakfast and lunch and a fresh fruit with breakfast and lunch. (Protein drinks such as Bynum, Premier, Fit n Active at [employer], generic protein drink at [employer], whey protein in skim or 1% milk) 2. Have healthy balance dinner of 4 oz lean protein, 2 whole grain starches such as brown rice, whole grain pasta, beans/lesgumes; vegetables as desired and one fresh fruit; add one 100 eric snack, look for protein and fiber. 2. Keep protein lean, 93% lean ground beef, chicken, turkey, fish. Bake broil roast and grill 5. Non starchy vegetables unlimited 6. Calorie free beverages only such as Crystal Light , flavored water, [id number] , Minute Maid light lemonade, Propel ) 5. Continue daily activities AND add exercise to at least 30 min cardio 5 days per week or as tolerated; add in weight resistance exercise, preferably 2-3 days per week documented in this encounterSt. Anthony'[facility]08-07-2023 History of Present illness Narrative* Ginna Gonzales RD - 12/21/2022 1:01 PM EDT Nutrition Therapy Initial Assessment Nutrition Diagnosis: Overweight/obesity, related to, excess energy intake and physical inactivity, as evidenced by BMI above normative standard for age and gender. RECOMMENDED MALNUTRITION DIAGNOSIS: NO MALNUTRITION IDENTIFIED NUTRITION CARE PLAN Nutrition Intervention 12/21/2022: modify type and amount of food or beverage 1. Follow partial liquid protein diet; have a nutrition drink 160-250 calories and 15-30 grams protein for breakfast and lunch and a fresh fruit with breakfast and lunch. (Protein drinks such as Bynum, Premier, Fit n Active at [facility], generic protein drink at [facility], whey protein in skim or 1% milk) 2. Have healthy balance dinner of 4 oz lean protein, 2 whole grain starches such as brown rice, whole grain pasta, beans/lesgumes; vegetables as desired and one fresh fruit; add one 100 eric snack, look for protein and fiber. 2. Keep protein lean, 93% lean ground beef, chicken, turkey, fish. Bake broil roast and grill 5. Non starchy vegetables unlimited 6. Calorie free beverages only such as Crystal Light , flavored water, [id number] , Minute Maid light lemonade, Propel ) 5. Continue daily activities AND add exercise to at least 30 min cardio 5 days per week or as tolerated; add in weight resistance exercise, preferably 2-3 days per week Nutrition Monitoring & Evaluation: 1-2 lb weight loss per week Need for Follow up: 4-6 weeks Patient presents for initial MNT as relates to class 3 obesity Body mass index is 55.12 kg/m . And diabetes controlled with HgA1c 6.2 no medication, GERD. Currently on Phentermine for appetite control. Has tried prior medication of Trulicity - was able to lose 25 lbs with this; Smaller portions . Highest weight 330-340 lbs, lowest adult weight 140 with drub abuse; goal weight 180 range. Needs to have knee replacement and needs to lose weight for this . Intake noted for skipped meals, usually one main meal with occ late day snacks, per discussion suspect large portions. States no hunger and forcing self to eat. Is active during the day but no regular exercise . 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 Activity: Activities of Daily Living: Active 50% of the day. 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 Resting Metabolic Rate: 2031 Malnutrition Screening Significant unintentional weight loss? No Eating less than 75% of usual intake for more than 2 weeks? No Potential Signs of Inflammation: no identifiable sources Education Materials Provided: [id number] Calorie Partial Liquid Protein Diet READINESS TO LEARN Cognitive ability: Alert and oriented Motivation to learn: Interested Family support: Unable to assess - Family not present Instruction provided to: Patient Patient learns best by: Individual Instruction Factors affecting learning: None Physical limitations affecting learning: None Referred/Supervised by: Sebastián/Guy KEY Billing Type: Initial Assess/15 min 3 units SIGNATURE: Ginna Gonzales RD PATIENT NAME: Darren Reinoso DATE: December 21, 2022 TIME: 1:04 PM documented in this encounterSt. [facility]08-07-2023 Miscellaneous Notes* Telephone Encounter - Shira Chang LPN - 12/21/2022 9:06 AM EDT [facility] [employer] phones requesting refills as follows: Requested Prescriptions Pending Prescriptions Disp Refills omeprazole (PRILOSEC) 40 mg capsule 30 capsule 5 Sig: Take 1 capsule by mouth daily before breakfast. 1/2 hr before meal. flash glucose sensor (FREESTYLE ANA PAULA 2 SENSOR) kit 2 Kit 3 Si Each once daily. ALONSO: 12/14/22 NOV: 12/31/22 Shira Chang LPN documented in this encounterSt. Anthony'[facility]07-28-2023 Miscellaneous Notes* Telephone Encounter - Barb Dempsey RN - 12/11/2022 4:22 PM EDT Pt calling in and states [facility] because her blood sugars have been dropping to 50's-60's. Pt states when her sugars drop, she will drink pop to try to bring it back up.In speaking with pt, she states she will usually drink 2 cups of coffee in the morning and then won't eat until 4-5 pm in the evening. In speaking with pt, it appears she does not have good eating hab its, does not eat breakfast or lunch usually and talks about having fast food, pop, watermelon and other high sugar foods. Pt very aggressive in her tone. She was very upset with [facility] staff. They made an appt for her with Zeinab Garcia Wednesday at 10 am. Pt complaining as she only wants to see Caryn Older. Pt says she can be a difficult pt and a lot of doctors don't understand her. Pt encouraged tokeep that appt on Wednesday which she agreed to. Pt has a hx of hypoglycemia. Explained to pt that sheneeds to be eating something of substance (lean proteins, complex carbs, and high fiber) every couple of hours. Told her to write down exactly what she eats and what time. Also to monitor her BS 2 hours after eating or as needed if she feels sugar is dropping. Write down results and times she does her BS. Keep some peanut butter crackers on hand to eat if sugar drops. Instructed to do all of thatover the weekend, bring in that information and keep her appt on Wednesday. Go to ER if unable to keepsugars above 80. Pt verbalizes understanding to all of the above. documented in this encounterSt. Anthony'[facility]07-27-2023 History of Present illness Narrative* Niranjan Stiles PA - 12/10/2022 7:47 PM EDT 42-year-old female presents for low blood sugar. Patient has history of diabetes from review of herchart. She is not currently on any medications. She states she is not on insulin or any oral diabetic medications. She states she has issues with hypoglycemia in the past. Patient has an arm blood sugar monitor. She states that her blood sugar this morning was 57. She ate and drank today, but couldnot get it to go to up very much. She states that she ate about 2 hours ago and her sugar is now 120. Advised patient only testing we can do at this point is a [id number] glucose. She declines. Nolab testing available at this time of day. I recommended patient keep a close eye on her blood sugar at home and if it continues to be low despite her eating and drinking, she needs to be evaluated in the emergency room. Blood glucose normal at this time. She understands. She will also schedule a close follow-up with PCP. documented in this encounterSt. [facility]07-11-2023 Miscellaneous Notes* Telephone Encounter - Evan Kelly APRN.JACINTA - 11/24/2022 9:18 AM EDT The following approved medication requests have been transmitted electronically. Requested Prescriptions Pending Prescriptions Disp Refills nortriptyline (PAMELOR) 50 mg capsule 30 capsule 5 Sig: Take 1 capsule by mouth daily at bedtime. Evan Kelly APRN.CNP * Telephone Encounter - Silviano Root RN - 11/24/2022 9:09 AM EDT Patient has been identified by name and date of : Yes, Provider Ganta Date 11-24-22 Time 9:13 am Pharmacy phones for refill(s): Requested Prescriptions Pending Prescriptions Disp Refills nortriptyline (PAMELOR) 50 mg capsule 30 capsule 5 Sig: Take 1 capsule by mouth daily at bedtime. Date of last office visit with pcp: 11-23-22. Next appt: 12-31-22 Last 2 Encounter Wt Readings: Date: Wt: 11/23/2022 140.6 kg (310 lb) 08/24/2022 136.5 kg (301 lb) Previous labs/tests for medication: Blood Pressure: BUN (mg/dL) Date Value 07/17/2022 10 07/01/2021 10 Sodium (mmol/L) Date Value 07/17/2022 139 07/01/2021 139 Last 1 Encounter BP Readings: Date: BP: 11/23/2022 122/72 Liver Function: ALT (U/L) Date Value 07/17/2022 19 04/24/2021 27 AST (U/L) Date Value 07/17/2022 14 04/24/2021 17 Please advise. Thank you. Silviano Root RN documented in this encounterSt. Anthony'[facility]07-10-2023 History of Present illness Narrative* Caryn Lowery APRN.CNP - 11/23/2022 11:00 AM EDT CC: Patient presents with: Recheck: 3 month follow up HPI Darren Reinoso is a 42 year old female who presents today for routine follow up. Previous abdominal pain concerns have resolved. Has had CT scan, EGD, and colonoscopy without any cause being noted. Did see Dr. Gary who advised further diagnostics but patient declined as pain has resolved and has not difficulty eating. Has only a very small amount of nausea and not often. Denies abdominal pain, diarrhea, vomiting, or fever. If she eats greasy foods she can have some very mild constipation. Has had this improvement consistently over the past month. Wants to go back on trulicity as this was helping with weight loss, but concern was for the medication causing the symptoms. Obesity: Cotninuing to gain weight since not on trulicity. Difficutly with exericse because of her knee pain, and can't get knees repoaced until she loses weight. Does follow a healthy portion controlled diet. Has tolerated phentermine previously and would like to try this again. DIABETES MELLITUS: Ms. Reinoso was denies excessive thirst or increased frequency of urination, chestpain or dyspnea , numbness, tingling or pain in extremities, new or unusual visual symptoms, low sugar/hypoglycemic reactions, weight loss/gain, lightheadedness/dizziness, and bowel changes/loose stools. Follows a diabetic diet most of the time. She is compliant with medication(s) and is toleratingmed(s) without any side effects. She reports checking her glucose on a continuous schedule 80s-100s. Patient's last HgA1C was Hemoglobin A1C (%) Date Value 06/12/2022 5.9 03/10/2022 5.6 04/24/2021 6.7 10/15/2020 6.1 Hemoglobin A1C (POCT) (%) Date Value 01/23/2022 6.1 07/03/2021 6.1 ) REVIEW OF SYSTEMS General: no fevers, no chills, no night sweats, no recurrent infections, no change in appetite, no change in energy, and no significant changes in weight Respiratory: no cough, no wheezing, no shortness of breath, no hemoptysis Cardiovascular: no chest pain, no chest pressure, no palpitations, and no swelling GI: No nausea, vomiting, or diarrhea Endocrine: no fatigue, no cold intolerance, no heat intolerance, no polyuria, no polyphagia, and nopolydipsia Neurologic: No headache, weakness, numbness, tingling, dizziness, memory loss, syncope. PAST MEDICAL HISTORY Diagnosis Date Adjustment disorder with depressed mood Anxiety state, unspecified Dysmenorrhea Hearing loss no aids Other and unspecified ovarian cyst Ovarian cyst RECOVERING ALCOHOL, MARIJUANA & COCAINE PAST SURGICAL HISTORY Procedure Laterality Date COLONOSCOPY FLX DX W/COLLJ SPEC WHEN PFRMD 03/02/2017 Colonoscopy HEMORRHOIDECTOMY INCISE FINGER TENDON SHEATH Right 2002 INCISE FINGER TENDON SHEATH Right 07/23/2021 Right thumb and middle trigger finger releases LAPS ABD PRTM&OMENTUM DX W/WO SPEC BR/WA SPX Laparoscopy, diagnostic LIG/TRNSXJ FLP TUBE ABDL/VAG APPR UNI/BI Tubal ligation OVARIAN CYSTECTOMY 1990 ovarian cysts removed PAST SURGICAL HISTORY OF 1999 ORIF left ankle PAST SURGICAL HISTORY OF right middle finger surgery, staph debridment. PAST SURGICAL HISTORY OF 07/28/2013 left carpal tunnel release RECTAL EXAM UNDER ANESTHESIA 2014 REVISE MEDIAN N/CARPAL TUNNEL SURG 06/08/2014 right capral tunnel release TNOT ELBOW LATERAL/MEDIAL DEBRIDE OPEN Right 04/02/2017 Right elbow extensor tendon debridement TNOT ELBOW LATERAL/MEDIAL DEBRIDE OPEN Left 05/18/2018 Left elbow extensor tendon debridement TONSILLECTOMY PRIMARY/SECONDARY <AGE 12 Tonsillectomy ALLERGIES Amoxicillin, Codeine, Darvocet A500 [Propoxyphene N-Acetaminophen], Propoxyphene, and Sulfa (Sulfonamide Antibiotics) MEDICATIONS diclofenac (VOLTAREN) 1 % topical gel^Apply 2 g to affected area twice daily as needed.^Disp: 50 g^Rfl: 5 fluticasone (FLONASE) 50 mcg/actuation nasal spray^Use 2 Sprays in each nostril once daily. Rinse mouth after use.^Disp: 1 Each^Rfl: 11 flash glucose sensor (FREESTYLE ANA PAULA 2 SENSOR) kit^1 Each once daily.^Disp: 2 Kit^Rfl: 3 omeprazole (PRILOSEC) 40 mg capsule^Take 1 capsule by mouth daily before breakfast. 1/2 hr before meal.^Disp: 30 capsule^Rfl: 5 metoprolol tartrate, short acting, (LOPRESSOR) 25 mg tablet^Take 1 tablet by mouth twice daily.^Disp: 60 tablet^Rfl: 5 promethazine (PHENERGAN) 25 mg tablet^Take 1 tablet by mouth every 8 hours as needed.^Disp: 30 tablet^Rfl: 0 ondansetron (ZOFRAN) 4 mg tablet^Take 1 tablet by mouth every 8 hours as needed for nausea/vomiting(for nausea.).^Disp: 60 tablet^Rfl: 1 TRUE METRIX GLUCOSE METER^test blood sugar DIRECTED^Disp: ^Rfl: SYMBICORT 160-4.5 mcg/actuation inhaler^^Disp: ^Rfl: cetirizine (ZYRTEC) 10 mg tablet^^Disp: ^Rfl: montelukast (SINGULAIR) 10 mg tablet^^Disp: ^Rfl: lamoTRIgine (LAMICTAL) 200 mg tablet^^Disp: ^Rfl: UNILET SUPER THIN LANCETS 30 gauge^Test blood sugar(s) 4 times daily.^Disp: ^Rfl: nortriptyline (PAMELOR) 50 mg capsule^Take 1 capsule by mouth daily at bedtime.^Disp: 30 capsule^Rfl: 5 levothyroxine (SYNTHROID) 50 mcg tablet^TAKE 1 TABLET BY MOUTH DAILY TAKE ON EMPTY STOMACH. FOR THYROID^Disp: 30 tablet^Rfl: 5 furosemide (LASIX) 40 mg tablet^Take 1 tablet by mouth once daily.^Disp: 30 tablet^Rfl: 5 famotidine (PEPCID) 20 mg tablet^Take 1 tablet by mouth daily at bedtime.^Disp: ^Rfl: blood sugar diagnostic (BLOOD GLUCOSE TEST) test strip^Test blood sugar(s) 4 times daily. Dx: Type 2 DM - Controlled E11.9 Insulin: No^Disp: 50 Strip^Rfl: 11 Lancets lancets^Test blood sugar(s) 4 times daily. Dx: Type 2 DM - Controlled E11.9 Insulin: No^Disp: 100 Each^Rfl: 11 glucose 4 gram chewable tablet^Take 3-4 tablets for hypoglycemia. Recheck blood sugar in 15 min after dose^Disp: 30 tablet^Rfl: 0 atorvastatin (LIPITOR) 10 mg tablet^Take 1 tablet by mouth once daily.^Disp: 90 tablet^Rfl: 3 potassium chloride (K-TAB) 10 mEq tablet^Take 1 tablet by mouth daily with breakfast. Take with lasix^Disp: 90 tablet^Rfl: 3 flash glucose scanning reader (FREESTYLE ANA PAULA 2 READER)^1 Each once daily.^Disp: 1 Each^Rfl: 0 lidocaine (ANECREAM5) crea^Apply to affected area as needed.^Disp: 28 g^Rfl: 1 albuterol HFA (VENTOLIN HFA) 90 mcg/actuation inhaler^Inhale 2 Puffs as instructed every 4 hours asneeded for wheezing/shortness of breath.^Disp: 18 g^Rfl: 2 ipratropium-albuterol (DUONEB) 0.5 mg-3 mg(2.5 mg base)/3 mL nebu^INHALE 3 ML INSTRUCTED EVERY 4HOURS NEEDED^Disp: 180 mL^Rfl: 2 FAMILY HISTORY Problem Relation Age of Onset Heart Mother Hypertension Father Psychiatry Father Bipolar Psychiatry Sister No Known Problems Brother No Known Problems Maternal Grandmother Cancer Maternal Grandfather Diabetes Paternal Grandmother Stroke Paternal Grandmother Great Grandmother No Known Problems Paternal Grandfather Cancer Paternal Aunt other ([place]) Paternal Aunt Great aunt Colon Cancer No Family History Social History Tobacco Use Smoking status: Every Day Packs/day: 0.50 Types: Cigarettes Start date: 05/17/1992 Smokeless tobacco: Never Vaping Use Vaping Use: Never used Substance Use Topics Alcohol use: Not Currently Comment: Seldom- uses once every couple months Drug use: Not Currently Comment: marijuana h/o, 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 PHYSICAL EXAM BP 122/72 Pulse 88 Temp 36.4 C (97.5 F) (Temporal) Resp 16 Wt (!) 140.6 kg (310 lb) LMP 12/15/2021 SpO2 98% BMI 54.91 kg/m General Appearance: well appearing, in no acute distress, alert Pysch: mood and affect broad and appropriate Skin: Skin color, texture, turgor normal for age; Eyes: conjunctiva pink and moist, no icterus, sclera white, non-injected Neck: Thyroid normal size and symmetric without palpable nodules, Neck supple, No adenopathy Lymph nodes: No cervical lymphadenopathy and No supraclavicular lymphadenopathy Lungs: Lungs clear to auscultation. No wheezing, rhonchi, rales. Heart: RRR without murmur, gallop, or rubs. No ectopy Abdomen: Abdomen soft, non-tender. Bowel sounds normal. No masses, organomegaly BUE Extremities: No deformities, edema, skin discoloration, clubbing or cyanosis. Good capillary refill. Health maintenance reviewed with patient: HEPATITIS B(1 of 3 - 3-dose series) Never done COVID-19 VACCINE(1) Never done PNEUMOCOCCAL(1 - PCV) Never done SPIROMETRY Never done HPV TESTING due on 08/23/2013 MAMMOGRAM Never done PAP TESTING due on 01/10/2020 COLORECTAL CANCER SCREENING due on 03/02/2022 DEPRESSION ASSESSMENT Never done DTAP,TDAP,TD(2 - Td or Tdap) due on 10/03/2022 HBA1C due on 12/10/2022 INFLUENZA(1) due on 01/15/2023 LDL CHOLESTEROL due on 03/10/2023 ANNUAL PCP TEAM CHRONIC DISEASE VISIT due on 08/25/2023 BP CONTROLLED (<130/80) due on 08/25/2023 HIV SCREENING Completed HPV VACCINE Aged Out URINE ALBUMIN:CREATININE RATIO Discontinued DILATED RETINAL EXAM Discontinued DIABETIC FOOT EXAM Discontinued HEPATITIS C SCREENING Discontinued DATA REVIEWED: No new labs ASSESSMENT/PLAN: 1. Controlled type 2 diabetes mellitus without complication, without long-term current use of insulin ([facility]) - ICD9: 250.00, ICD10: E11.9 (primary diagnosis) - Controlled - Continue current medications - Blood glucose monitoring on a continuous schedule - Counseled on healthy diet and regular exercise - Discussed need for and benefit of weight loss. BMI 54.91 kg/(m^2) - HEMOGLOBIN A1C (POC) - CONSULT TO NUTRITION THERAPY 2. Class 3 drug-induced obesity with serious comorbidity and body mass index (BMI) of 50.0 to 59.9 in adult ([facility]) - ICD9: 278.01, V85.43, ICD10: E66.1, Z68.43 Weight increasing - patient really wanting to be back on trulicity but I would like her to be free of stomach pain and nausea for a few months before even considering this. - Behavioral intervention and - Pharmacological intervention - CONSULT TO NUTRITION THERAPY - PHENTERMINE 37.5 MG TABLET - discussed in detail this will need discontinued immediately for any low blood sugars, GI changes,or any other concerns. - follow up in 4 weeks Discussed Contraindications, went over each one and over side effects. tolerance, continuity of medication, controlled medication so cannot be replaced if stolen or if lost. Advised exercising along with this will really help the patient reach her goal of loosing weight. Short term use of this med was discussed. Negative for all the following :Hypersensitivity or idiosyncrasy to phentermine or other sympathomimetic amines or any component of the formulation; history of cardiovascular disease (arrhythmias, congestive heart failure, coronary artery disease, stroke, uncontrolled hypertension); hyperthyroidism, glaucoma, agitated states, history of drug abuse; use during or within 14 days following MAO inhibi tor therapy; , breast-feeding. PDMP website checked and validated. All prescriptions have been APPROPRIATELY filled. No suspiciousactivity was identified. 11/23/2022 by Caryn Lowery APRN.CNP 3. Weight loss counseling, encounter for - ICD9: V65.3, ICD10: Z71.3 As above 4. Epigastric pain - ICD9: 789.06, ICD10: R10.13 - resolved - continue on PPI Prescription instructions reviewed with patient as applicable. Potential red flag symptoms discussed with the patient. Reviewed appropriate action plan to take if red flag symptoms occur. Patient agreeable to treatment plan. Caryn Lowery APRN.CNP documented in this encounterSt. [facility] Miscellaneous Notes* Telephone Encounter - Yuliana Bryson LPN - 09/25/2022 2:06 PM EDT ALONSO--08/24/22 NOV--11/23/22 LAST REFILL--04/15/22 LAST LABS--08/24/22 documented in this encounterSt. [facility]04-27-2023 History of Present illness Narrative* Duran Blunt MD - 09/10/2022 2:04 PM EDT Duran Blunt MD Department of Orthopaedics Orthopaedics [facility] [address] [facility] [address] Dept: [phone] Dept September 10, 2022 CHIEF COMPLAINT: Pain of the Left Shoulder HPI Pt here for L shoulder pain. Pt fell getting out of bed a couple months ago and landed on R side, but has had L arm pain since. Pt has seen pain management. Pt has numbness, and tingling shootingpain all down her arm. ASSESSMENT: M54.12 Cervical radiculopathy (primary encounter diagnosis) M25.512, G89.29 Chronic left shoulder pain PLAN: Although it seems like she had fallen maybe on your arm, she has had pain in the contralateral sidegoing down the arm. She does see pain management and I would continue that recommendation. Prednisone taper, gabapentin, possible cervical injection. Ms. Darren Reinoso was advised as to contrast therapies and/or to take analgesics/anti-inflammatoriesas needed and all contraindications were reviewed. OBJECTIVE: Ms. Darren Reinoso is a pleasant 42 year old in no apparent distress. Gen:LMP 12/15/2021 nl development, morbidly obese , no deformities ENT: Normocephalic, normal hearing, moist mucosa CV: Pulses:Radial= 2+ and symmetric, capillary refill < 2 secs, no peripheral edema/varicosities Skin: no rash, bruising or lesions. Good turgor. Psych: cooperative and appropriate, alert and oriented x 3, good mood and affect. Musculoskeletal: Some stiffness with cervical motion. Positive Spurling's. Left shoulder with nearly full range of motion and some mild impingement signs. Imaging: IMPRESSION: Findings are suggestive of mild degenerative changes in the left shoulder. Quality Improvement Consultant: PSCB Transcribe Date/Time: Aug 23 2022 4:12P Dictated by : DELIO CALDWELL MD This examination was interpreted and the report reviewed and electronically signed by: DELIO CALDWELL MD on Aug 23 2022 4:13PM EST Results-Findings * * *Final Report* * * DATE OF EXAM: Aug 20 2022 2:40PM WOX [id number] - XR SHLDR >/=3V AP/REJI AP/OTHR LT / PROCEDURE REASON: M25.512 Pain radiating to left shoulder * * * * Physician Interpretation * * * * EXAM TITLE: XR SHLDR >/=3V AP/REJI AP/OTHR LT EXAM DATE/TIME: 08/20/2022 2:40 PM COMPARISON: None. CLINICAL INDICATION/HISTORY: Pain. TECHNIQUE: AP, true AP and Y views of the left shoulder are presented FINDINGS: No acute fractures or subluxations are noted. The acromioclavicular and glenohumeral joint spaces are maintained however mild osteophyte formation is present. Normal acromiohumeral interval. The mineralization of the bones is normal. There is no significant soft tissue swelling. Supporting Subjective Information Below: Past Surgical History: PAST SURGICAL HISTORY Procedure Laterality Date COLONOSCOPY FLX DX W/COLLJ SPEC WHEN PFRMD 03/02/2017 Colonoscopy HEMORRHOIDECTOMY INCISE FINGER TENDON SHEATH Right 2002 INCISE FINGER TENDON SHEATH Right 07/23/2021 Right thumb and middle trigger finger releases LAPS ABD PRTM&OMENTUM DX W/WO SPEC BR/WA SPX Laparoscopy, diagnostic LIG/TRNSXJ FLP TUBE ABDL/VAG APPR UNI/BI Tubal ligation OVARIAN CYSTECTOMY 1990 ovarian cysts removed PAST SURGICAL HISTORY OF 1999 ORIF left ankle PAST SURGICAL HISTORY OF right middle finger surgery, staph debridment. PAST SURGICAL HISTORY OF 07/28/2013 left carpal tunnel release RECTAL EXAM UNDER ANESTHESIA 2014 REVISE MEDIAN N/CARPAL TUNNEL SURG 06/08/2014 right capral tunnel release TNOT ELBOW LATERAL/MEDIAL DEBRIDE OPEN Right 04/02/2017 Right elbow extensor tendon debridement TNOT ELBOW LATERAL/MEDIAL DEBRIDE OPEN Left 05/18/2018 Left elbow extensor tendon debridement TONSILLECTOMY PRIMARY/SECONDARY <AGE 12 Tonsillectomy Medications: Current Outpatient Medications Medication Sig fluticasone (FLONASE) 50 mcg/actuation nasal spray Use 2 Sprays in each nostril once daily. Rinse mouth after use. flash glucose sensor (FREESTYLE ANA PAULA 2 SENSOR) kit 1 Each once daily. omeprazole (PRILOSEC) 40 mg capsule Take 1 capsule by mouth daily before breakfast. 1/2 hr before meal. metoprolol tartrate, short acting, (LOPRESSOR) 25 mg tablet Take 1 tablet by mouth twice daily. promethazine (PHENERGAN) 25 mg tablet Take 1 tablet by mouth every 8 hours as needed. ondansetron (ZOFRAN) 4 mg tablet Take 1 tablet by mouth every 8 hours as needed for nausea/vomiting(for nausea.). TRUE METRIX GLUCOSE METER test blood sugar DIRECTED SYMBICORT 160-4.5 mcg/actuation inhaler cetirizine (ZYRTEC) 10 mg tablet montelukast (SINGULAIR) 10 mg tablet lamoTRIgine (LAMICTAL) 200 mg tablet UNILET SUPER THIN LANCETS 30 gauge Test blood sugar(s) 4 times daily. nortriptyline (PAMELOR) 50 mg capsule Take 1 capsule by mouth daily at bedtime. levothyroxine (SYNTHROID) 50 mcg tablet TAKE 1 TABLET BY MOUTH DAILY TAKE ON EMPTY STOMACH. FOR THYROID furosemide (LASIX) 40 mg tablet Take 1 tablet by mouth once daily. famotidine (PEPCID) 20 mg tablet Take 1 tablet by mouth daily at bedtime. blood sugar diagnostic (BLOOD GLUCOSE TEST) test strip Test blood sugar(s) 4 times daily. Dx: Type 2 DM - Controlled E11.9 Insulin: No Lancets lancets Test blood sugar(s) 4 times daily. Dx: Type 2 DM - Controlled E11.9 Insulin: No glucose 4 gram chewable tablet Take 3-4 tablets for hypoglycemia. Recheck blood sugar in 15 min after dose atorvastatin (LIPITOR) 10 mg tablet Take 1 tablet by mouth once daily. potassium chloride (K-TAB) 10 mEq tablet Take 1 tablet by mouth daily with breakfast. Take with lasix diclofenac (VOLTAREN) 1 % topical gel Apply 2 g to affected area twice daily as needed. flash glucose scanning reader ([employer] ANA PAULA 2 READER) 1 Each once daily. lidocaine (ANECREAM5) crea Apply to affected area as needed. albuterol HFA (VENTOLIN HFA) 90 mcg/actuation inhaler Inhale 2 Puffs as instructed every 4 hours asneeded for wheezing/shortness of breath. ipratropium-albuterol (DUONEB) 0.5 mg-3 mg(2.5 mg base)/3 mL nebu INHALE 3 ML INSTRUCTED EVERY 4HOURS NEEDED Current Facility-Administered Medications Medication Dose Route Frequency perflutren lipid microspheres 1.3 mL in NaCl (PF) 0.9% 10 mL injection (DEFINITY) INTRAVENOUS DIRECTED PRN sodium chloride 0.9 % (flush) 10 mL (BD POSIFLUSH) 10 mL INTRAVENOUS DIRECTED PRN Allergies: Amoxicillin, Codeine, Darvocet A500 [Propoxyphene N-Acetaminophen], Propoxyphene, and Sulfa (Sulfonamide Antibiotics) ROS: General (negative for fatigue, malaise, weight loss/gain) HEENT (negative for headache, earache, recent vision changes, sinus pain, sore throat) Respiratory (no recent shortness of breath, hemoptysis) CV (negative for chest tightness, palpitations) Musculoskeletal (see HPI) Psych (no depression, anxiety) Duran Blunt MD documented in this encounterSt. [facility]04-20-2023 Miscellaneous Notes* Telephone Encounter - Marita Gonzalez RN - 09/03/2022 8:53 AM EDT Patient has been identified by name and date of : Yes, Marita Gonzalez RN Date 09/03/2022 Time 8:57 am Pharmacy phones for refill(s): Requested Prescriptions Pending Prescriptions Disp Refills fluticasone (FLONASE) 50 mcg/actuation nasal spray 1 Each 11 Sig: Use 2 Sprays in each nostril once daily. Rinse mouth after use. Date of last office visit with pcp:08/24/2022 Future appt: 11/23/2022 Last 2 Encounter Wt Readings: Date: Wt: 08/24/2022 136.5 kg (301 lb) 07/17/2022 136.5 kg (301 lb) Previous labs/tests for medication: Blood Pressure: BUN (mg/dL) Date Value 07/17/2022 10 07/01/2021 10 Sodium (mmol/L) Date Value 07/17/2022 139 07/01/2021 139 Last 1 Encounter BP Readings: Date: BP: 08/24/2022 128/72 Liver Function: ALT (U/L) Date Value 07/17/2022 19 04/24/2021 27 AST (U/L) Date Value 07/17/2022 14 04/24/2021 17 Please advise. Thank you. Marita Gonzalez RN documented in this encounterSt. [facility]04-14-2023 Miscellaneous Notes* Telephone Encounter - Marita Gonzalez RN - 08/28/2022 11:32 AM EDT Patient has been identified by name and date of : Yes, Marita Gonzalez RN Date 08/28/2022 Time 11:33 am Pharmacy phones for refill(s): Requested Prescriptions Pending Prescriptions Disp Refills flash glucose sensor (FREESTYLE ANA PAULA 2 SENSOR) kit 2 Kit 3 Si Each once daily. omeprazole (PRILOSEC) 40 mg capsule 30 capsule 3 Sig: Take 1 capsule by mouth daily before breakfast. 1/2 hr before meal. Date of last office visit with pcp: 08/25/2022 Future appt: 11/23/2022 Last 2 Encounter Wt Readings: Date: Wt: 08/24/2022 136.5 kg (301 lb) 07/17/2022 136.5 kg (301 lb) Previous labs/tests for medication: Diabetes: Hemoglobin A1C (%) Date Value 06/12/2022 5.9 03/10/2022 5.6 04/24/2021 6.7 10/15/2020 6.1 Hemoglobin A1C (POCT) (%) Date Value 01/23/2022 6.1 07/03/2021 6.1 Blood Pressure: BUN (mg/dL) Date Value 07/17/2022 10 07/01/2021 10 Sodium (mmol/L) Date Value 07/17/2022 139 07/01/2021 139 Last 1 Encounter BP Readings: Date: BP: 08/24/2022 128/72 Liver Function: ALT (U/L) Date Value 07/17/2022 19 04/24/2021 27 AST (U/L) Date Value 07/17/2022 14 04/24/2021 17 Please advise. Thank you. Marita Gonzalez RN documented in this encounterSt. [facility]04-10-2023 Miscellaneous Notes* Telephone Encounter - Kelli Mendoza RN - 08/24/2022 4:20 PM EDT Last Office Visit: 08/24/2022 Future Office Visit: 11/23/2022 Requested Prescriptions Pending Prescriptions Disp Refills dicyclomine (BENTYL) 20 mg tablet 28 tablet 0 Sig: Take 1 tablet by mouth four times daily as needed for up to 7 days. Date of Last Labs: 08/24/2022 documented in this encounter[address]10-2023 History of Present illness Narrative* Caryn Lowery, ARCHITECTURAL DRAFTSMAN.ICT SUPPORT ENGINEER - 08/24/2022 11:04 AM EDT CC: Patient presents with: Recheck: 3 month follow up HPI Darren Reinoso is a 42 year old female who presents today for routine follow up but with multiple concerns as well. Abdominal pain with nausea and decreased appetite ongoing. Originally thought due to trulicity so this was stopped last year. Still with nausea and vomiting this weekend. The dicyclomine does help with some of the abdominal cramping. Has seen GI, general surgery and has had an EGD and Colonoscopy completed in 06/30/21. Per patient it was normal. Has an upcoming appointment with Dr. Gary and [facility] for second opinion as patient is miserable. Also reports. Left sided chest pain. States it is a pulling sensation that started yesterday for 1/2 hour and occurred with shortness of breath. Not associated with exertion, food, or other identifiable cause. Has been under a large amount of stress at home. Has depression and anxiety and sees psychiatry for this. Pain was severe enough she contemplated going to ER but did not. DIABETES MELLITUS: Ms. Reinoso denies excessive thirst or increased frequency of urination, numbness,tingling or pain in extremities, new or unusual visual symptoms, low sugar/hypoglycemic reactions, weight loss/gain, lightheadedness/dizziness, and bowel changes/loose stools. Follows a diabetic dietmost of the time. She is compliant with medication(s) and is tolerating med(s) without any side effects. She reports checking her glucose on a twice a day schedule with sugars in the 90s-120s range. Patient's last HgA1C was Hemoglobin A1C (%) Date Value 06/12/2022 5.9 03/10/2022 5.6 04/24/2021 6.7 10/15/2020 6.1 Hemoglobin A1C (POCT) (%) Date Value 01/23/2022 6.1 07/03/2021 6.1 ) Reports Left lower extremity swelling for the past few days with tightness without known cause. Allof calf is reported as tender. Denies any injury to leg recent or previous, pain outside of chronicleft knee pain, history of DVTs, or recent immobilization. Did fall 2-3 weeks ago landing hard on her right side and her knees. Has left shoulder pain and left thumb with intermittent numbness she is seeing pain management for. Denies hitting her head or neck. Feels it is related to how she sleeps at night but did not start until after the fall. Had xray ordered by pain mgmt and getting injections into shoulder now. HTN: Ms. Reinoso indicates that she is feeling well and denies any symptoms referable to elevated blood pressure. Specifically denies headache, palpitations. Patient denies any side effects of her medication(s) and is compliant with their regimen. She does not check BP's generally. Darren denies regular aerobic exercise. She watches her diet for sodium, low fat and low cholesterol some of the time. Last 3 Encounter BP Readings: Date: BP: 08/24/2022 128/72 07/17/2022 128/80 06/03/2022 124/74 REVIEW OF SYSTEMS General: no fevers, no chills, no night sweats, no recurrent infections, no change in appetite, no change in energy, and no significant changes in weight Respiratory: no cough, no wheezing, no hemoptysis Cardiovascular: no chest pressure and no palpitations GI: See HPI : No history of dysuria, frequency or incontinence Endocrine: no fatigue, no weight gain, no weight loss, no cold intolerance, no heat intolerance, nopolyuria, no polyphagia, and no polydipsia Neurologic: No headache, weakness, dizziness, memory loss, syncope. PAST MEDICAL HISTORY Diagnosis Date Adjustment disorder with depressed mood Anxiety state, unspecified Dysmenorrhea Hearing loss no aids Other and unspecified ovarian cyst Ovarian cyst RECOVERING ALCOHOL, MARIJUANA & COCAINE PAST SURGICAL HISTORY Procedure Laterality Date COLONOSCOPY FLX DX W/COLLJ SPEC WHEN PFRMD 03/02/2017 Colonoscopy HEMORRHOIDECTOMY INCISE FINGER TENDON SHEATH Right 2002 INCISE FINGER TENDON SHEATH Right 07/23/2021 Right thumb and middle trigger finger releases LAPS ABD PRTM&OMENTUM DX W/WO SPEC BR/WA SPX Laparoscopy, diagnostic LIG/TRNSXJ FLP TUBE ABDL/VAG APPR UNI/BI Tubal ligation OVARIAN CYSTECTOMY 1990 ovarian cysts removed PAST SURGICAL HISTORY OF 1999 ORIF left ankle PAST SURGICAL HISTORY OF right middle finger surgery, staph debridment. PAST SURGICAL HISTORY OF 07/28/2013 left carpal tunnel release RECTAL EXAM UNDER ANESTHESIA 2015 REVISE MEDIAN N/CARPAL TUNNEL SURG 06/08/2014 right capral tunnel release TNOT ELBOW LATERAL/MEDIAL DEBRIDE OPEN Right 04/02/2017 Right elbow extensor tendon debridement TNOT ELBOW LATERAL/MEDIAL DEBRIDE OPEN Left 05/18/2018 Left elbow extensor tendon debridement TONSILLECTOMY PRIMARY/SECONDARY <AGE 10 Tonsillectomy ALLERGIES Amoxicillin, Codeine, Darvocet A500 [Propoxyphene N-Acetaminophen], Propoxyphene, and Sulfa (Sulfonamide Antibiotics) MEDICATIONS promethazine (PHENERGAN) 25 mg tablet Take 1 tablet by mouth every 8 hours as needed. ondansetron (ZOFRAN) 4 mg tablet Take 1 tablet by mouth every 8 hours as needed for nausea/vomiting(for nausea.). TRUE METRIX GLUCOSE METER test blood sugar DIRECTED SYMBICORT 160-4.5 mcg/actuation inhaler cetirizine (ZYRTEC) 10 mg tablet montelukast (SINGULAIR) 10 mg tablet lamoTRIgine (LAMICTAL) 200 mg tablet UNILET SUPER THIN LANCETS 30 gauge Test blood sugar(s) 4 times daily. nortriptyline (PAMELOR) 50 mg capsule Take 1 capsule by mouth daily at bedtime. levothyroxine (SYNTHROID) 50 mcg tablet TAKE 1 TABLET BY MOUTH DAILY TAKE ON EMPTY STOMACH. FOR THYROID furosemide (LASIX) 40 mg tablet Take 1 tablet by mouth once daily. omeprazole (PRILOSEC) 40 mg capsule Take 1 capsule by mouth daily before breakfast. 1/2 hr before meal. famotidine (PEPCID) 20 mg tablet Take 1 tablet by mouth daily at bedtime. blood sugar diagnostic (BLOOD GLUCOSE TEST) test strip Test blood sugar(s) 4 times daily. Dx: Type 2 DM - Controlled E11.9 Insulin: No Lancets lancets Test blood sugar(s) 4 times daily. Dx: Type 2 DM - Controlled E11.9 Insulin: No glucose 4 gram chewable tablet Take 3-4 tablets for hypoglycemia. Recheck blood sugar in 15 min after dose atorvastatin (LIPITOR) 10 mg tablet Take 1 tablet by mouth once daily. flash glucose sensor (FREESTYLE ANA PAULA 2 SENSOR) kit 1 Each once daily. potassium chloride (K-TAB) 10 mEq tablet Take 1 tablet by mouth daily with breakfast. Take with lasix diclofenac (VOLTAREN) 1 % topical gel Apply 2 g to affected area twice daily as needed. flash glucose scanning reader ([employer] ANA PAULA 2 READER) 1 Each once daily. metoprolol tartrate, short acting, (LOPRESSOR) 25 mg tablet Take 1 tablet by mouth twice daily. lidocaine (ANECREAM5) crea Apply to affected area as needed. fluticasone (FLONASE) 50 mcg/actuation nasal spray Use 2 Sprays in each nostril once daily. Rinse mouth after use. albuterol HFA (VENTOLIN HFA) 90 mcg/actuation inhaler Inhale 2 Puffs as instructed every 4 hours asneeded for wheezing/shortness of breath. ipratropium-albuterol (DUONEB) 0.5 mg-3 mg(2.5 mg base)/3 mL nebu INHALE 3 ML INSTRUCTED EVERY 4HOURS NEEDED FAMILY HISTORY Problem Relation Age of Onset Heart Mother Hypertension Father Psychiatry Father Bipolar Psychiatry Sister No Known Problems Brother No Known Problems Maternal Grandmother Cancer Maternal Grandfather Diabetes Paternal Grandmother Stroke Paternal Grandmother Great Grandmother No Known Problems Paternal Grandfather Cancer Paternal Aunt other ([place]) Paternal Aunt Great aunt Colon Cancer No Family History Social History Tobacco Use Smoking status: Every Day Packs/day: 0.50 Types: Cigarettes Start date: 05/17/1992 Smokeless tobacco: Never Vaping Use Vaping Use: Never used Substance Use Topics Alcohol use: Not Currently Comment: Seldom- uses once every couple months Drug use: Not Currently Comment: marijuana h/o, 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 PHYSICAL EXAM BP 128/72 Pulse 80 Resp 16 Wt (!) 136.5 kg (301 lb) LMP 12/15/2021 BMI 53.32 kg/m General Appearance: well appearing, in no acute distress, alert Skin: Skin color, texture, turgor normal for age; Eyes: conjunctiva pink and moist, no icterus, sclera white, non-injected Neck: Thyroid normal size and symmetric without palpable nodules, Neck supple, No adenopathy Lymph nodes: No cervical lymphadenopathy and No supraclavicular lymphadenopathy Lungs: Lungs clear to auscultation. No wheezing, rhonchi, rales. Heart: RRR without murmur, gallop, or rubs. No ectopy Abdomen: Abdomen soft, non-tender. Bowel sounds normal. No masses, organomegaly RLE Extremities: No deformities, edema, skin discoloration, clubbing or cyanosis. Good capillary refill. LLE Extremities: No deformities, skin discoloration, clubbing or cyanosis. Good capillary refill. 1+ edema noted and tenderness reported of palpating calf and stafford. Health maintenance reviewed with patient: HEPATITIS B(1 of 3 - 3-dose series) Never done COVID-19 VACCINE(1) Never done PNEUMOCOCCAL(1 - PCV) Never done SPIROMETRY Never done PAP TESTING due on 08/23/2013 HPV TESTING due on 08/23/2013 MAMMOGRAM Never done COLORECTAL CANCER SCREENING due on 03/02/2022 DEPRESSION ASSESSMENT Never done DTAP,TDAP,TD(2 - Td or Tdap) due on 10/03/2022 HBA1C due on 12/10/2022 LDL CHOLESTEROL due on 03/10/2023 ANNUAL PCP TEAM CHRONIC DISEASE VISIT due on 07/18/2023 INFLUENZA Completed HIV SCREENING Completed URINE ALBUMIN:CREATININE RATIO Discontinued DILATED RETINAL EXAM Discontinued DIABETIC FOOT EXAM Discontinued HEPATITIS C SCREENING Discontinued DATA REVIEWED: No new labs EKG Interpretation: RHYTHM: Normal sinus rhythm at 72 beats per minute AXIS: Normal axis INTERVALS: Normal NM interval QRS COMPLEX: Normal ST SEGMENT: Normal ST-T segments QT INTERVAL: Normal COMPARED WITH PRIOR: unchanged ASSESSMENT/PLAN: 1. Shortness of breath - ICD9: 786.05, ICD10: R06.02 (primary diagnosis) - unsure on cause, obesity and sedentary lifestyle versus other cause. With history of DM, HTN, andbeing sedentary will repeat ECHO as it was normal when completed a few years ago. - ECHO - PERFLUTREN LIPID MICROSPHERES 1.1 MG/ML INJECTION IN NS 10 ML - SODIUM CHLORIDE 0.9 % (FLUSH) INJECTION SYRINGE - CBC + DIFF - TSH BLD - T3 BLD - T4 FREE/FREE THYROX - go to ER for chest pain, shortness of breath, palpitations, or other urgent concerns 2. Chest pain, unspecified type - ICD9: 786.50, ICD10: R07.9 - as above Atypical chest pain, symptoms are not consistent with cardiac ischemia due to nonexertional nature of symptom possible etiology include GERD and Anxiety or other cause - ECHO - PERFLUTREN LIPID MICROSPHERES 1.1 MG/ML INJECTION IN NS 10 ML - SODIUM CHLORIDE 0.9 % (FLUSH) INJECTION SYRINGE - CBC + DIFF - MAGNESIUM BLD 3. Left leg swelling - ICD9: 729.81, ICD10: M79.89 - with being unilateral and without cause will verify no DVT is present - US LEG VEIN DVT UNL VAS LAB 4. Left leg pain - ICD9: 729.5, ICD10: M79.605 As above - US LEG VEIN DVT UNL VAS LAB 5. Nausea - ICD9: 787.02, ICD10: R11.0 - continue with current treatment and plan to see Dr. Gary. 6. Controlled type 2 diabetes mellitus without complication, without long-term current use of insulin (HCC) - ICD9: 250.00, ICD10: E11.9 - Controlled - Blood glucose monitoring on a once daily schedule - Counseled on healthy diet and regular exercise - Discussed need for and benefit of weight loss. BMI 53.32 kg/(m^2) 7. Acute pain of left shoulder - ICD9: 719.41, ICD10: M25.512 - not fully evaluated in office - continue with pain management, for any further concerns or you stop seeing pain management followback up with me for further evaluation. 8. Essential hypertension - ICD9: 401.9, ICD10: I10 - good control - Continue current medication(s) - Encouraged dietary sodium restriction/DASH diet - Recommended regular aerobic exercise. - Recommend home blood pressure monitoring, to bring results in on next visit - Goal of BP <130/80 9. Hypothyroidism, unspecified type - ICD9: 244.9, ICD10: E03.9 - Instructed patient on importance of taking on an empty stomach either first thing in the morning or at bedtime. - TSH BLD - T3 BLD - T4 FREE/FREE THYROX I spent 40 minutes in the visit, with more than 50% of the total [id number] time of the visit in counseling / coordination of care. Prescription instructions reviewed with patient as applicable. Potential red flag symptoms discussed with the patient. Reviewed appropriate action plan to take if red flag symptoms occur. Patient agreeable to treatment plan. Caryn Lowery APRN.CNP documented in this encounterKimberly Ville [id number] History of Present illness Narrative* Ana Gunderson RT(R) - 08/20/2022 2:40 PM EDT Radiology Service Progress Note PATIENT NAME: Darren Reinoso DATE OF SERVICE: August 20, 2022 TIME: 2:40 PM PATIENT IDENTITY VERIFICATION COMPLETED USING TWO (2) IDENTIFIERS: Name and Date of confirmedby patient verbally. FALL SCREENING: Has the patient had 2 falls in the last year or 1 fall with injury or currently using an Ambulatory Assistive Device (Walker, Cane, Wheelchair, Crutches, etc.)? No PATIENT GENDER DATA: Female. status: : No status: NO. PATIENT RELEVANT IMPLANT DATA REVIEWED: Not Applicable RADIOLOGY DEPARTMENT: General X-ray: Exam(s) Completed: Upper Extremity X- Ray(s): Shoulder, AP / TRUE AP / SUPRA OUTLET left PERIPHERAL IV DATA: Not applicable SIGNED BY: RT Luis(R) August 20, 2022 2:51 PM documented in this encounterSt. Anthony'[facility]03-20-2023 Procedure [facility]03-14-2023 Miscellaneous Notes* Telephone Encounter - Joyce Gonzalez LPN - 07/28/2022 1:17 PM EDT Paperwork and orders faxed to 's office. Joyce Gonzalez LPN * Telephone Encounter - Silviano Root RN - 07/28/2022 9:19 AM EDT Patient returned call and cancelled her appt for today, stating her stomach is screwed up and she needs to see Dr. Gary, but Dr Carranza office told her yesterday, they never received the referral. Re-faxed referral per patient request. Patient declined to reschedule appt since she is scheduled with Kilo Rubin on 08-24-22. Patient reports her BS readings yesterday were: 138 fasting, 99, 111, 92, 94. States she will bringher readings to her next appt. * Telephone Encounter - Tete Gonzalez RN - 07/28/2022 9:03 AM EDT Attempted to contact patient. No answer. Left VM for pt to call PCP office and ask for nurse for message below. Tete Gonzalez RN * Telephone Encounter - Babar Phillip MD - 07/28/2022 8:46 AM EDT Please ask patient to get her log of Babar Benjamin MD * Telephone Encounter - Joyce Gonzalez LPN - 07/27/2022 12:58 PM EDT Noted appt made for 07/28/22 with at 11am for evaluation. Joyce Gonzalez LPN * Telephone Encounter - Hope Dickey LPN - 07/25/2022 11:29 AM EST Patient returned call and decided to schedule appt for Wednesday with PCP. Patient had fall and having pain shoulders and knees did not want to try to come in today for appt. * Telephone Encounter - Chaparrita Paez RN - 07/25/2022 9:51 AM EST Pt reports yesterday her BS was 81/108/90. Tried to schedule Pt with provider today at 1140 am, butshe declined. Tried to schedule her with Wednesday or Wed with Dr Phillip and she said she would call inif she needed an appointment. * Telephone Encounter - Babar Phillip MD - 07/24/2022 5:12 PM EST She needs eval in office Babar Medeiros MD * Telephone Encounter - Deisy Gamino LPN - 07/23/2022 1:40 PM EST Patient is unable to eat regularly or eat more food due to throwing up or having diarrhea soon afterward. Patient states she is not on any diabetic medications. States last Blood glucose reading was 57 at 11:45am * Telephone Encounter - Babar Phillip MD - 07/23/2022 1:24 PM EST She may have to start eating regularly. Is she on any diabetic medications? RegardsBabar MD * Telephone Encounter - Tete Gonzalez RN - 07/23/2022 11:49 AM EST Patient calling with concern for her low blood sugar readings. Patient has Ana Paula CGM. Current bloodsugar reading is 62. Patient states her sugars over the last couple of days have ranged from 52-90.States no matter what I eat or drink my sugars do not come up, and pt is concerned. Ate 5-6 glucose tabs yesterday and states it didn't help her blood sugars at all. Pt states she feels shakey, t ired and irritable right now. Reports she is under a lot of stress and has been dealing with stomach issues. Plans to call Dr. Gary's office today to make an appt as previously recommended. Patient states she has not ate since yesterday around 4-5pm. Reports she had two bites of ham loaf,two bites of carrots and some mashed potatoes for dinner yesterday. Blood sugar was 52-61 last night. Drank a cup of coffee this morning with two TSPN sugar. Continues with soft/loose bowel movements. Aware of red flag sx's and when to seek ER. Please advise patient. Thank you. documented in this encounterSt. Anthony'[facility] Hospital03-08-2023 Miscellaneous Notes* Telephone Encounter - Florencia Barrios RN - 07/22/2022 6:04 PM EST Spoke with patient. Given message from provider's office. Patient verbalizes understanding. Florencia Barrios RN * Telephone Encounter - Babar Phillip MD - 07/22/2022 5:52 PM EST Darren, you do not need us to certify or recommend for the medical marijuana, you will find those designated clinic in [place] and can make a sefl referral That's the most we can advice, Sorry Its a Clinic policy. Regards, Babar Phillip MD * Telephone Encounter - Marita Gonzalez RN - 07/22/2022 2:51 PM EST Patient calls to ask if provider would assist her to get an [place] green card for medical marijuana. Notified patient that [facility] provider's don't recommend or support medical marijuana. Patient asked that request be sent to provider to double check that provider isn't willing to writea recommendation. Marita Gonzalez RN documented in this encounterSt. Anthony'[facility]03-08-2023 Miscellaneous Notes* Telephone Encounter - Katie Moon Ma - 07/22/2022 10:47 AM EST Referral, OV notes, imaging and demographics sent to Dr Gary office. * Telephone Encounter - Kelli Mendoza RN - 07/22/2022 10:41 AM EST Patient calls and states that at last appointment she had talked to Caryn about GI Referral being sent to Dr. Carranza office. Asking if this can be sent? Please review and advise, Kelli Mendoza RN documented in this encounterSt. Anthony'S Hospital03-03-2023 Miscellaneous Notes* Telephone Encounter - Lela Mackey Sec - 07/17/2022 4:34 PM EST Progress notes dated 06/17/22 with SKYLAR Lauren were faxed for you to review; in Epic. Thanks. Lela Mackey documented in this encounterSt. Anthony'S Hospital03-03-2023 History of Present illness Narrative* Caryn Lowery APRN.JACINTA - 07/17/2022 2:22 PM EST CC: Patient presents with: Recheck: GI follow up HPI Darren Reinoso is a 42 year old female who presents today for GI concerns. 5-7 loose to soft unformed stool a day which is very painful to have bowel movements which has beengoing on for a while. Still with vomiting. Last emesis was yesterday clear with coffee and was dry heaving today. Also with decreased appetite. Still with constant aching to LUQ which worsens with vomiting. Has seen gastroenterology and had recent normal EGD and colonoscopy. Has been taking zofran which is not helping. States she can't take these symptoms anymore and has been trying to call GI without any response. Also with a very large amount of stress at home and relationship problems. Is seeing a psychiatristat the counseling center regularly. Alcohol use: does not drink any alcohol Drug use: No Appetite: poor Suicidal Thoughts: No suicidal ideation, intent or plan REVIEW OF SYSTEMS General: no fevers, no chills, no night sweats, no recurrent infections, and no significant changesin weight Respiratory: no cough, no wheezing, no shortness of breath, no hemoptysis Cardiovascular: no chest pain, no chest pressure, no palpitations, and no swelling GI: See HPI : No history of dysuria, frequency or incontinence Endocrine: no cold intolerance, no heat intolerance, no polyuria, no polyphagia, and no polydipsia Neurologic: No headache, weakness, numbness, tingling, dizziness, syncope. PAST MEDICAL HISTORY Diagnosis Date Adjustment disorder with depressed mood Anxiety state, unspecified Dysmenorrhea Hearing loss no aids Other and unspecified ovarian cyst Ovarian cyst RECOVERING ALCOHOL, MARIJUANA & COCAINE PAST SURGICAL HISTORY Procedure Laterality Date COLONOSCOPY FLX DX W/COLLJ SPEC WHEN PFRMD 03/02/2017 Colonoscopy HEMORRHOIDECTOMY INCISE FINGER TENDON SHEATH Right 2002 INCISE FINGER TENDON SHEATH Right 07/23/2021 Right thumb and middle trigger finger releases LAPS ABD PRTM&OMENTUM DX W/WO SPEC BR/WA SPX Laparoscopy, diagnostic LIG/TRNSXJ FLP TUBE ABDL/VAG APPR UNI/BI Tubal ligation OVARIAN CYSTECTOMY 1990 ovarian cysts removed PAST SURGICAL HISTORY OF 1999 ORIF left ankle PAST SURGICAL HISTORY OF right middle finger surgery, staph debridment. PAST SURGICAL HISTORY OF 07/28/2013 left carpal tunnel release RECTAL EXAM UNDER ANESTHESIA 2014 REVISE MEDIAN N/CARPAL TUNNEL SURG 06/08/2014 right capral tunnel release TNOT ELBOW LATERAL/MEDIAL DEBRIDE OPEN Right 04/02/2017 Right elbow extensor tendon debridement TNOT ELBOW LATERAL/MEDIAL DEBRIDE OPEN Left 05/18/2018 Left elbow extensor tendon debridement TONSILLECTOMY PRIMARY/SECONDARY <AGE 12 Tonsillectomy ALLERGIES Amoxicillin, Codeine, Darvocet A500 [Propoxyphene N-Acetaminophen], Propoxyphene, and Sulfa (Sulfonamide Antibiotics) MEDICATIONS ondansetron (ZOFRAN) 4 mg tablet^Take 1 tablet by mouth every 8 hours as needed for nausea/vomiting(for nausea.).^Disp: 60 tablet^Rfl: 1 TRUE METRIX GLUCOSE METER^test blood sugar DIRECTED^Disp: ^Rfl: SYMBICORT 160-4.5 mcg/actuation inhaler^^Disp: ^Rfl: cetirizine (ZYRTEC) 10 mg tablet^^Disp: ^Rfl: montelukast (SINGULAIR) 10 mg tablet^^Disp: ^Rfl: lamoTRIgine (LAMICTAL) 200 mg tablet^^Disp: ^Rfl: UNILET SUPER THIN LANCETS 30 gauge^Test blood sugar(s) 4 times daily.^Disp: ^Rfl: nortriptyline (PAMELOR) 50 mg capsule^Take 1 capsule by mouth daily at bedtime.^Disp: 30 capsule^Rfl: 5 levothyroxine (SYNTHROID) 50 mcg tablet^TAKE 1 TABLET BY MOUTH DAILY TAKE ON EMPTY STOMACH. FOR THYROID^Disp: 30 tablet^Rfl: 5 furosemide (LASIX) 40 mg tablet^Take 1 tablet by mouth once daily.^Disp: 30 tablet^Rfl: 5 omeprazole (PRILOSEC) 40 mg capsule^Take 1 capsule by mouth daily before breakfast. 1/2 hr before meal.^Disp: 30 capsule^Rfl: 3 famotidine (PEPCID) 20 mg tablet^Take 1 tablet by mouth daily at bedtime.^Disp: ^Rfl: blood sugar diagnostic (BLOOD GLUCOSE TEST) test strip^Test blood sugar(s) 4 times daily. Dx: Type 2 DM - Controlled E11.9 Insulin: No^Disp: 50 Strip^Rfl: 11 Lancets lancets^Test blood sugar(s) 4 times daily. Dx: Type 2 DM - Controlled E11.9 Insulin: No^Disp: 100 Each^Rfl: 11 glucose 4 gram chewable tablet^Take 3-4 tablets for hypoglycemia. Recheck blood sugar in 15 min after dose^Disp: 30 tablet^Rfl: 0 atorvastatin (LIPITOR) 10 mg tablet^Take 1 tablet by mouth once daily.^Disp: 90 tablet^Rfl: 3 flash glucose sensor (FREESTYLE ANA PAULA 2 SENSOR) kit^1 Each once daily.^Disp: 2 Kit^Rfl: 3 potassium chloride (K-TAB) 10 mEq tablet^Take 1 tablet by mouth daily with breakfast. Take with lasix^Disp: 90 tablet^Rfl: 3 diclofenac (VOLTAREN) 1 % topical gel^Apply 2 g to affected area twice daily as needed.^Disp: 50 g^Rfl: 5 flash glucose scanning reader (FREESTYLE ANA PAULA 2 READER)^1 Each once daily.^Disp: 1 Each^Rfl: 0 metoprolol tartrate, short acting, (LOPRESSOR) 25 mg tablet^Take 1 tablet by mouth twice daily.^Disp: 60 tablet^Rfl: 5 lidocaine (ANECREAM5) crea^Apply to affected area as needed.^Disp: 28 g^Rfl: 1 fluticasone (FLONASE) 50 mcg/actuation nasal spray^Use 2 Sprays in each nostril once daily. Rinse mouth after use.^Disp: 1 Each^Rfl: 11 albuterol HFA (VENTOLIN HFA) 90 mcg/actuation inhaler^Inhale 2 Puffs as instructed every 4 hours asneeded for wheezing/shortness of breath.^Disp: 18 g^Rfl: 2 ipratropium-albuterol (DUONEB) 0.5 mg-3 mg(2.5 mg base)/3 mL nebu^INHALE 3 ML INSTRUCTED EVERY 4HOURS NEEDED^Disp: 180 mL^Rfl: 2 FAMILY HISTORY Problem Relation Age of Onset Heart Mother Hypertension Father Psychiatry Father Bipolar Psychiatry Sister No Known Problems Brother No Known Problems Maternal Grandmother Cancer Maternal Grandfather Diabetes Paternal Grandmother Stroke Paternal Grandmother Great Grandmother No Known Problems Paternal Grandfather Cancer Paternal Aunt other ([place]) Paternal Aunt Great aunt Colon Cancer No Family History Social History Tobacco Use Smoking status: Every Day Packs/day: 0.50 Types: Cigarettes Start date: 05/17/1992 Smokeless tobacco: Never Vaping Use Vaping Use: Never used Substance Use Topics Alcohol use: Not Currently Comment: Seldom- uses once every couple months Drug use: Not Currently Comment: marijuana h/o, 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 PHYSICAL EXAM BP 128/80 Pulse 80 Resp 16 Wt (!) 136.5 kg (301 lb) LMP 12/15/2021 BMI 53.32 kg/m General Appearance: well appearing, in no acute distress, alert Eyes: conjunctiva pink and moist, no icterus, sclera white, non-injected Neck: Thyroid normal size and symmetric without palpable nodules, Neck supple, No adenopathy Lymph nodes: No cervical lymphadenopathy and No supraclavicular lymphadenopathy Lungs: Lungs clear to auscultation. No wheezing, rhonchi, rales. Heart: RRR without murmur, gallop, or rubs. No ectopy Abdomen: Abdomen soft, . Bowel sounds normal. No masses, organomegaly. Generalized tenderness with palpation and grimacing. No guarding, rigidity, or rebound pain noted. Health maintenance reviewed with patient: HEPATITIS B(1 of 3 - 3-dose series) Never done COVID-19 VACCINE(1) Never done PNEUMOCOCCAL(1 - PCV) Never done SPIROMETRY Never done PAP TESTING due on 08/23/2013 HPV TESTING due on 08/23/2013 MAMMOGRAM Never done COLORECTAL CANCER SCREENING due on 03/02/2022 DEPRESSION ASSESSMENT Never done DTAP,TDAP,TD(2 - Td or Tdap) due on 10/03/2022 HBA1C due on 12/10/2022 LDL CHOLESTEROL due on 03/10/2023 ANNUAL PCP TEAM CHRONIC DISEASE VISIT due on 05/25/2023 BP CONTROLLED (<130/80) due on 06/03/2023 INFLUENZA Completed HIV SCREENING Completed URINE ALBUMIN:CREATININE RATIO Discontinued DILATED RETINAL EXAM Discontinued DIABETIC FOOT EXAM Discontinued HEPATITIS C SCREENING Discontinued DATA REVIEWED: Most recent labs and imaging results. ASSESSMENT/PLAN: 1. Diarrhea, unspecified type - ICD9: 787.91, ICD10: R19.7 (primary diagnosis) - will fax GI consult to Dr. Carranza office at [facility] - adding phenergan and dicyclomine as needed - CBC + DIFF - COMP METABOLIC PANEL - keep upcoming appointment. 2. Nausea and vomiting, unspecified vomiting type - ICD9: 787.01, ICD10: R11.2 As above - CBC + DIFF - COMP METABOLIC PANEL 3. Epigastric pain - ICD9: 789.06, ICD10: R10.13 See #1 Prescription instructions reviewed with patient as applicable. Potential red flag symptoms discussed with the patient. Reviewed appropriate action plan to take if red flag symptoms occur. Patient agreeable to treatment plan. Caryn Lowery APRN.CNP documented in this encounterSt. Anthony'S Hospital03-02-2023 Miscellaneous Notes* Telephone Encounter - Flores Yanes MA - 07/16/2022 3:35 PM EST Patient called in stating that she is still feeling very sick, uncontrollable diarrhea, vomiting and discomfort. Patient states her stomach is screwed, her butt physically hurts and the vomiting is unreal I told the patient if she is vomiting as much as she says and can't keep food down she should go tot ER. Patient then stated she already took Zofran that was prescribed by another provider and sheate some crackers earlier, she just doesn't want to think about food. Patient states theres still something wrong and she doesn't know what, but she wants answers. Please advise. Flores Yanes MA documented in this encounterSt. Anthony'S Hospital03-02-2023 Miscellaneous Notes* Telephone Encounter - Caryn Lowery APRN.CNP - 07/16/2022 3:01 PM EST Noted will review in appointment tomorrow. Thank you Caryn Lowery APRN.CNP * Telephone Encounter - Florencia Barrios RN - 07/16/2022 2:19 PM EST Patient calling to say she had an EGD and Colonoscopy at [facility] on 06/30/[address] Roque. She says the results were negative but she is still having stomach issues of right upper abdominal pain, poor appetite, nausea and diarrhea with some occasional rectal bleeding( about one teaspoon). Requesting follow up appointment. Scheduled tomorrow with Caryn. Florencia Barrios RN documented in this encounterSt. Anthony'S Hospital02-14-2023 Procedure note* Aravind Roque MD - 06/30/2022 2:43 PM [place] [address] IMMEDIATE POST ENDOSCOPY PROCEDURE NOTE Patient: ARLETHDARREN JOSEPH N M.D. [id number] F Status: REG [facility] Report Date & Time: 06/30/22 1443 Procedure Procedure Performed Study Performed: Upper Endoscopy, Colonoscopy Post Procedure Diagnosis Diagnosis: normal Description of Procedure Description of Procedure: Procedure note dictated, Pictures taken, Colonoscopy, EGD Condition Immediate Post Proc Condition Returned to Pre Procedure <Electronically signed by ARAVIND ROQUE M.D.> 06/30/22 1445 ARAVIND ROQUE M.D. cc: << Signature on File>> Reported By: ARAVIND ROQUE M.D. Signed By: ARAVIND ROQUE M.D. Tests performed at: [address] [address] documented in this encounterSt. Anthony'S Hospital02-01-2023 Instructions* Patient Instructions* Jared Lauren PA-C - 06/17/2022 2:31 PM EST Images from the original note were not included. Bowel Preparation Instructions for: Suprep IF YOU DO NOT FOLLOW THESE DIRECTIONS, YOUR COLONOSCOPY WILL BE CANCELLED. Araujo Instructions: Your bowel must be empty so that your doctor can clearly view your colon. Follow all of the instructions in this handout EXACTLY as they are written. Do NOT eat any solid food the ENTIRE day before your colonoscopy. DRINK ONLY CLEAR LIQUIDS Buy your bowel preparation at least 5 days before your colonoscopy. TRANSPORTATION on the Day of Your Exam A responsible adult MUST be present with you at Check In prior to your colonoscopy and REMAIN in the endoscopy area until you are discharged. You are NOT ALLOWED to drive, take a taxi or bus, or leave the Endoscopy Center ALONE. If you do not have a responsible lease purchase truck driver (family member or friend) withyou to take you home, your exam cannot be done with sedation and will be cancelled. Please bring a list of all of your current medications, including any Himt-ryf-Gysbxad medications with you. Medications If you take insulin, diabetic medications or blood thinners such as Coumadin (warfarin), Plavix (clopidogrel), Ticlid (ticlopidine hydrochloride), Agrylin (anagrelide), Xarelto (Rivaroxaban), Pradaxa(Dabigatran), Eliquis (Apixaban), and Effient (Prasugrel). You MUST call the doctors who orders those medicines for instructions on altering the dosage before your colonoscopy. All other medications should be taken the day of the exam with a sip of water including ASPIRIN. Five (5) Days Before Your Colonoscopy Do NOT take medicines that stop diarrhea - such as Imodium, Kaopectate, or Pepto Bismol. Do NOT take fiber supplements - such as Metamucil, Citrucel, or Perdiem. Do NOT take products that contain iron - such as multi-vitamins (the label lists what is in the products). Three (3) Days Before Your Colonoscopy Do NOT eat high-fiber foods - such as popcorn, beans, seeds (flax, sunflower, quinoa), multigrain bread, nuts, salad/vegetables, or fresh and dried fruit. 04/2019 Bowel Preparation Instructions for: Suprep One (1) Day Before Your Colonoscopy Only drink clear liquids the ENTIRE DAY before your colonoscopy. Do NOT eat any solid foods. Drink at least 8 ounces of clear liquids every hour after waking up. The clear liquids you can drink include: Clear Liquid (NO RED LIQUIDS) DO NOT DRINK Gatorade, Pedialyte or Powerade Clear broth or bouillon Coffee or tea (no milk or non-dairy creamer) Carbonated and non-carbonated soft drinks Baldev-Aid or other fruit flavored drinks Strained fruit juices (no pulp) Jell-O, popsicles, hard candy Water Alcohol Milk or non-dairy creamers Noodles or vegetables in soup Juice with pulp Liquid you cannot see through Do not use tobacco/vaping products The bowel preparation solution will be consumed in two parts. Do NOT add ice, sugar or any flavorings to the solution. Part 1 6 PM - Evening before your colonoscopy Pour ONE (1) 6 oz. bottle of SUPREP liquid into the mixing container. Add cool water to the 16 oz. line on the container and mix. Drink ALL the liquid in the container. Drink two (2) more 16 oz. water over the next 1 (one) hour. You may continue to drink clear liquids until midnight. Part 2 4 hours before your colonoscopy Pour ONE (1) 6 oz. bottle of SUPREP liquid into the mixing container. Add cool water to the 16 oz. line on the container and mix. Drink ALL the liquid in the container. You must drink two (2) more 16 oz. glasses of water over the next one (1) hour. You may continue drinking clear liquids up to three (3) hours before your procedure. 2 04/2019 documented in this encounterSt. [facility] History of Present illness Narrative* Jared Lauren PA-C - 06/17/2022 2:22 PM EST Darren Reinoso is a 42 year old who presents today for a visit to discuss N/V, bowl changes and was referred by PCP. PRESENT ILLNESS: 42-year-old female ambulatory to clinic today with complaints of nausea vomiting bowel changes and blood in her stool. She states this started right after she changed her diabetic medicine to Trulicity injections. She states that her Trulicity injections was helping her blood sugar and also helpingwith weight loss. But she started develop epigastric pain that progressed to nausea and vomiting especially with eating with food. She states then she started develop diarrhea constipation and noticed some blood in her stool. She denies any previous EGDs but did have a colonoscopy in 2017 with unknown results no records were available for review at today's visit. She has since discontinued the inj ections but she continues to have symptoms at this time. She denies any anticoagulation therapy at today's visit. Patient has had a previous hemorrhoidectomy Previous Colonoscopy: colonoscopy 2017 unkown Bowel Movements: constipation and diarrhea Rectal Bleeding: red blood on the toilet paper, on the stool, and in the bowl Rectal Pain: burning Abdominal Pain: Cramping - Yes Upper GI Any history of reflux, heartburn, ulcers or trouble swallowing: Yes. Epigastric pain. She drinks 2 cup(s) of regular coffee, no tea, and no cola. No Alcohol, Yes Smoking , No recreational drugs, No aspirin or non-steroidals. Colorectal Cancer Risk Factors: Personal history fo Adenomatous Polyps: No Personal history of Colorectal Cancer: No Family history of Colorectal Cancer: No Family history of Adenomatous Polyps: No Personal history Crohn's Colitis: No Personal history Ulcerative Colitis: No Ovarian or Endometrial Cancer less than age 50: No BMI: Ht 5' 3 (1.60m) Wt 305 lb (138.3kg) LMP 12/15/2021 BMI 54.04 kg/(m^2). ALLERGIES Allergen Reactions Amoxicillin Other: See Comments Yeast infection Codeine Darvocet A500 [Prop* Propoxyphene Rash, Unknown Sulfa (Sulfonamide * Past CRC Screening: Prior Colonoscopy. Date and findings: 2016 unkown Review of Systems Constitutional: Positive for chills. Negative for activity change, fatigue, fever and unexpected weight change. HENT: Negative for sore throat, tinnitus, trouble swallowing and voice change. Eyes: Negative for visual disturbance. Respiratory: Positive for shortness of breath. Negative for apnea, cough and wheezing. Cardiovascular: Negative for chest pain, palpitations and leg swelling. Gastrointestinal: Positive for constipation, diarrhea, nausea and vomiting. Genitourinary: Negative for difficulty urinating, dysuria, frequency and urgency. Musculoskeletal: See HPI Skin: Negative for color change, rash and wound. Neurological: Negative for dizziness, seizures, syncope and headaches. Hematological: Bruises/bleeds easily. Psychiatric/Behavioral: Negative for behavioral problems and decreased concentration. The patient is nervous/anxious. 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 PAST MEDICAL HISTORY Diagnosis Date Adjustment disorder with depressed mood Anxiety state, unspecified Dysmenorrhea Hearing loss no aids Other and unspecified ovarian cyst Ovarian cyst RECOVERING ALCOHOL, MARIJUANA & COCAINE PAST SURGICAL HISTORY Procedure Laterality Date COLONOSCOPY FLX DX W/COLLJ SPEC WHEN PFRMD 03/02/2017 Colonoscopy HEMORRHOIDECTOMY INCISE FINGER TENDON SHEATH Right 2002 INCISE FINGER TENDON SHEATH Right 07/23/2021 Right thumb and middle trigger finger releases LAPS ABD PRTM&OMENTUM DX W/WO SPEC BR/WA SPX Laparoscopy, diagnostic LIG/TRNSXJ FLP TUBE ABDL/VAG APPR UNI/BI Tubal ligation OVARIAN CYSTECTOMY 1990 ovarian cysts removed PAST SURGICAL HISTORY OF 1999 ORIF left ankle PAST SURGICAL HISTORY OF right middle finger surgery, staph debridment. PAST SURGICAL HISTORY OF 07/28/2013 left carpal tunnel release RECTAL EXAM UNDER ANESTHESIA 2014 REVISE MEDIAN N/CARPAL TUNNEL SURG 06/08/2014 right capral tunnel release TNOT ELBOW LATERAL/MEDIAL DEBRIDE OPEN Right 04/02/2017 Right elbow extensor tendon debridement TNOT ELBOW LATERAL/MEDIAL DEBRIDE OPEN Left 05/18/2018 Left elbow extensor tendon debridement TONSILLECTOMY PRIMARY/SECONDARY <AGE 12 Tonsillectomy Current Medications: ondansetron (ZOFRAN) 4 mg tablet^Take 1 tablet by mouth every 8 hours as needed for nausea/vomiting(for nausea.).^Disp: 60 tablet^Rfl: 1 TRUE METRIX GLUCOSE METER^test blood sugar DIRECTED^Disp: ^Rfl: SYMBICORT 160-4.5 mcg/actuation inhaler^^Disp: ^Rfl: cetirizine (ZYRTEC) 10 mg tablet^^Disp: ^Rfl: montelukast (SINGULAIR) 10 mg tablet^^Disp: ^Rfl: lamoTRIgine (LAMICTAL) 200 mg tablet^^Disp: ^Rfl: UNILET SUPER THIN LANCETS 30 gauge^Test blood sugar(s) 4 times daily.^Disp: ^Rfl: nortriptyline (PAMELOR) 50 mg capsule^Take 1 capsule by mouth daily at bedtime.^Disp: 30 capsule^Rfl: 5 levothyroxine (SYNTHROID) 50 mcg tablet^TAKE 1 TABLET BY MOUTH DAILY TAKE ON EMPTY STOMACH. FOR THYROID^Disp: 30 tablet^Rfl: 5 furosemide (LASIX) 40 mg tablet^Take 1 tablet by mouth once daily.^Disp: 30 tablet^Rfl: 5 omeprazole (PRILOSEC) 40 mg capsule^Take 1 capsule by mouth daily before breakfast. 1/2 hr before meal.^Disp: 30 capsule^Rfl: 3 famotidine (PEPCID) 20 mg tablet^Take 1 tablet by mouth daily at bedtime.^Disp: ^Rfl: blood sugar diagnostic (BLOOD GLUCOSE TEST) test strip^Test blood sugar(s) 4 times daily. Dx: Type 2 DM - Controlled E11.9 Insulin: No^Disp: 50 Strip^Rfl: 11 Lancets lancets^Test blood sugar(s) 4 times daily. Dx: Type 2 DM - Controlled E11.9 Insulin: No^Disp: 100 Each^Rfl: 11 glucose 4 gram chewable tablet^Take 3-4 tablets for hypoglycemia. Recheck blood sugar in 15 min after dose^Disp: 30 tablet^Rfl: 0 atorvastatin (LIPITOR) 10 mg tablet^Take 1 tablet by mouth once daily.^Disp: 90 tablet^Rfl: 3 flash glucose sensor (FREESTYLE ANA PAULA 2 SENSOR) kit^1 Each once daily.^Disp: 2 Kit^Rfl: 3 potassium chloride (K-TAB) 10 mEq tablet^Take 1 tablet by mouth daily with breakfast. Take with lasix^Disp: 90 tablet^Rfl: 3 diclofenac (VOLTAREN) 1 % topical gel^Apply 2 g to affected area twice daily as needed.^Disp: 50 g^Rfl: 5 flash glucose scanning reader (FREESTYLE ANA PAULA 2 READER)^1 Each once daily.^Disp: 1 Each^Rfl: 0 metoprolol tartrate, short acting, (LOPRESSOR) 25 mg tablet^Take 1 tablet by mouth twice daily.^Disp: 60 tablet^Rfl: 5 lidocaine (ANECREAM5) crea^Apply to affected area as needed.^Disp: 28 g^Rfl: 1 fluticasone (FLONASE) 50 mcg/actuation nasal spray^Use 2 Sprays in each nostril once daily. Rinse mouth after use.^Disp: 1 Each^Rfl: 11 albuterol HFA (VENTOLIN HFA) 90 mcg/actuation inhaler^Inhale 2 Puffs as instructed every 4 hours asneeded for wheezing/shortness of breath.^Disp: 18 g^Rfl: 2 ipratropium-albuterol (DUONEB) 0.5 mg-3 mg(2.5 mg base)/3 mL nebu^INHALE 3 ML INSTRUCTED EVERY 4HOURS NEEDED^Disp: 180 mL^Rfl: 2 sodium sulfate-potassium sulfate-magnesium sulfate (SUPREP BOWEL PREP KIT) 17.5-3.13-1.6 gram oral liquid^Take 1 Bottle by mouth as directed for 2 days. Refer to instructions given by your provider.^Disp: 1 Kit^Rfl: 0 PHYSICAL EXAM: Heart: Regular rhythm Lung: Lungs clear to auscultation, no wheezing or ronchi. Abdomen: Abdomen soft, non-tender, bowel sounds normal, no masses or organomegaly. IMPRESSION and PLAN: R10.13 Epigastric pain (primary encounter diagnosis) K62.5 Rectal bleeding R19.7 Diarrhea, unspecified type R11.2 Nausea and vomiting, unspecified vomiting type Due to the epigastric pain nausea and vomiting I recommend a EGD to be performed. EGD was discussedin length at today's visit patient has elected to schedule an EGD at today's visit. Due to the rectal bleeding with diarrhea I recommend a repeat colonoscopy we do not have the results of her previous colonoscopy that was completed in 2017. Colonoscopy was discussed in length at today's visit bowel prep was discussed in length at today's visit patient is elected to schedule a colonoscopy at today's visit. We had a lengthy discussion regarding the risk and benefit of surgery, the alternatives, limitations and personnel involved. These included but were not limited to infection, persistent pain, bleeding, perforation, blood clots, and medical complications. We also discussed the pre-operative course, surgery itself and rehabilitation. The patient has elected to schedule surgery at this time or intends to call the office with a surgical date. Shared decision making occurred while obtaining written informed consent. This note is created with the assistance of a speech-recognition program. It may contain inaccuracies such as misspellings,inaccuarate syntax or word sense that escaped review. Jared Lauren PA-C June 17, 2022 2:23 PM documented in this encounterSt. [facility]01-25-2023 Miscellaneous Notes* Telephone Encounter - Teetee Villareal - 06/10/2022 3:25 PM EST Relayed information to patient and she understands. Teetee Villareal * Addendum Note - Kelli Mendenhall PA-C - 06/10/2022 1:19 PM ESTAddended by: KELLI MENDENHALL on: 06/10/2022 01:19 PM Modules accepted: Orders * Telephone Encounter - Kelli Mendenhall PA-C - 06/10/2022 1:18 PM EST I will send Zofran 4 mg as needed every 8 hours to her pharmacy for her. If she is having significant abdominal pain or cannot tolerate food/liquids, she should be evaluated in the ER. Highly recommend scheduling EGD. * Telephone Encounter - Teetee Hamiltonman - 06/10/2022 12:58 PM EST Patient called and stated that her stomach has been bothering her. She has been vomiting can not keep anything down. She stated that she is currently taking Omeprazole and Famotidine but neither are helping. She stated she is uncomfortable and she would put her pain level at a 6 right now. She is scheduled to see a provider in [place] regarding getting setup to have the EGD done. Due to her BMI she would need to be scoped at a hospital setting. Please advise patient if there is anything that she can do to help with her discomfort. Teetee Villareal documented in this encounterSt. [facility]01-18-2023 Instructions* Patient Instructions* Kelli Mendenhall PA-C - 06/03/2022 4:00 PM EST -- Recommend small, frequent meals through out the day. Recommend high protein, high fiber diet. Promotion of salivation through oral lozenges/chewing gum Drink plenty of water Avoid NSAIDs (such as Advil, Ibuprofen, Excedrin, Mobic), tobacco, alcohol, carbonated beverages, caffeine, chocolate, tomato based sauces, spicy/fatty foods, and peppermint Avoid eating less than 3 hours before bed. Elevate the head of the bed 6 inches, or invest in a wedge pillow. Laying on left side with head elevated may help alleviate reflux symptoms. documented in this encounterSt. [facility]01-18-2023 History of Present illness Narrative* Kelli Mendenhall PA-C - 06/03/2022 3:31 PM EST CHIEF COMPLAINT: Patient presents with: Abdominal Pain: Nausea, Diarrhea This consult was requested by Caryn Lowery APRN.CNP for an opinion regarding abdominanl pain, nausea, diarrhea. My final recommendations will be communicated to the requesting health care provider by way of the shared medical record for internal providers or letter via the [employer] for external providers. HPI: Darren Reinoso is a 42 year old female who presents for Abdominal Pain (Nausea, Diarrhea ). Patient tells me that she has been having issues with eating and abdominal pain. Gets epigastric pain that radiates into her L side. Tells me that her appetite is poor. Gets really nauseous with eating. Notes that her Trulicity was held recently. Feels like her body craves it. Did vomit on Wednesdayafter eating at [employer] in [place]. Bowel movements are irregular. Can be more constipated or have looser stools. Has been taking PeptoPRN. Did see blood in her stools about a month ago. Notes mucous in her stools. Smoking 1/2 ppd. No alcohol use. CT abd/pelvis was unremarkable. Component Latest Ref Rng & Units 03/26/2022 WBC 3.70 - 11.00 k/uL 11.32 (H) RBC 3.90 - 5.20 m/uL 4.81 Hemoglobin 11.5 - 15.5 g/dL 14.1 Hematocrit 36.0 - 46.0 % 46.5 (H) MCV 80.0 - 100.0 fL 96.7 MCH 26.0 - 34.0 pg 29.3 MCHC 30.5 - 36.0 g/dL 30.3 (L) RDW-CV 11.5 - 15.0 % 14.3 Platelet Count 150 - 400 k/uL 260 MPV 9.0 - 12.7 fL 10.2 Neut% % 61.8 Abs Neut (ANC) 1.45 - 7.50 k/uL 7.00 Lymph% % 26.8 Abs Lymph 1.00 - 4.00 k/uL 3.03 Glasscock% % 6.4 Abs Glasscock <0.87 k/uL 0.72 Eosin% % 3.8 Abs Eosin <0.46 k/uL 0.43 Baso% % 0.6 Abs Baso <0.11 k/uL 0.07 Immature Gran % % 0.6 IMMATURE GRANS (ABS) <0.10 k/uL 0.07 NRBC /100 WBC 0.0 Absolute nRBC <0.01 k/uL <0.01 DTYPE Auto Protein, Total 6.3 - 8.0 g/dL 6.7 Albumin 3.9 - 4.9 g/dL 4.1 Calcium 8.5 - 10.2 mg/dL 9.1 Bilirubin, Total 0.2 - 1.3 mg/dL 0.2 Alkaline Phosphatase 34 - 123 U/L 119 AST 13 - 35 U/L 14 ALT 7 - 38 U/L 19 Glucose 74 - 99 mg/dL 108 (H) BUN 7 - 21 mg/dL 13 Creatinine 0.58 - 0.96 mg/dL 0.78 Sodium 136 - 144 mmol/L 140 Potassium 3.7 - 5.1 mmol/L 4.3 Chloride 97 - 105 mmol/L 105 CO2 22 - 30 mmol/L 26 Anion Gap 9 - 18 mmol/L 9 eGFR >=60 mL/min/1.73m 96 Amylase 30 - 104 U/L 41 Lipase 16 - 61 U/L 15 (L) Record Review: [facility] / Outside records reviewed. PAST MEDICAL HISTORY Diagnosis Date Adjustment disorder with depressed mood Anxiety state, unspecified Dysmenorrhea Hearing loss no aids Other and unspecified ovarian cyst Ovarian cyst RECOVERING ALCOHOL, MARIJUANA & COCAINE PAST SURGICAL HISTORY Procedure Laterality Date COLONOSCOPY FLX DX W/COLLJ SPEC WHEN PFRMD 03/02/2017 Colonoscopy HEMORRHOIDECTOMY INCISE FINGER TENDON SHEATH Right 2002 INCISE FINGER TENDON SHEATH Right 07/23/2021 Right thumb and middle trigger finger releases LAPS ABD PRTM&OMENTUM DX W/WO SPEC BR/WA SPX Laparoscopy, diagnostic LIG/TRNSXJ FLP TUBE ABDL/VAG APPR UNI/BI Tubal ligation OVARIAN CYSTECTOMY 1990 ovarian cysts removed PAST SURGICAL HISTORY OF 1999 ORIF left ankle PAST SURGICAL HISTORY OF right middle finger surgery, staph debridment. PAST SURGICAL HISTORY OF 07/28/2013 left carpal tunnel release RECTAL EXAM UNDER ANESTHESIA 2014 REVISE MEDIAN N/CARPAL TUNNEL SURG 06/08/2014 right capral tunnel release TNOT ELBOW LATERAL/MEDIAL DEBRIDE OPEN Right 04/02/2017 Right elbow extensor tendon debridement TNOT ELBOW LATERAL/MEDIAL DEBRIDE OPEN Left 05/18/2018 Left elbow extensor tendon debridement TONSILLECTOMY PRIMARY/SECONDARY <AGE 12 Tonsillectomy Allergies: ALLERGIES Allergen Reactions Amoxicillin Other: See Comments Yeast infection Codeine Darvocet A500 [Prop* Propoxyphene Rash, Unknown Sulfa (Sulfonamide * Medications: TRUE METRIX GLUCOSE METER^test blood sugar DIRECTED^Disp: ^Rfl: SYMBICORT 160-4.5 mcg/actuation inhaler^^Disp: ^Rfl: cetirizine (ZYRTEC) 10 mg tablet^^Disp: ^Rfl: montelukast (SINGULAIR) 10 mg tablet^^Disp: ^Rfl: lamoTRIgine (LAMICTAL) 200 mg tablet^^Disp: ^Rfl: UNILET SUPER THIN LANCETS 30 gauge^Test blood sugar(s) 4 times daily.^Disp: ^Rfl: nortriptyline (PAMELOR) 50 mg capsule^Take 1 capsule by mouth daily at bedtime.^Disp: 30 capsule^Rfl: 5 levothyroxine (SYNTHROID) 50 mcg tablet^TAKE 1 TABLET BY MOUTH DAILY TAKE ON EMPTY STOMACH. FOR THYROID^Disp: 30 tablet^Rfl: 5 furosemide (LASIX) 40 mg tablet^Take 1 tablet by mouth once daily.^Disp: 30 tablet^Rfl: 5 HYDROcodone-acetaminophen (NORCO) 5-325 mg per tablet^Take 1 tablet by mouth every 6 hours as needed for pain for up to 7 days.^Disp: 24 tablet^Rfl: 0 omeprazole (PRILOSEC) 40 mg capsule^Take 1 capsule by mouth daily before breakfast. 1/2 hr before meal.^Disp: 30 capsule^Rfl: 3 famotidine (PEPCID) 20 mg tablet^Take 1 tablet by mouth daily at bedtime.^Disp: ^Rfl: blood sugar diagnostic (BLOOD GLUCOSE TEST) test strip^Test blood sugar(s) 4 times daily. Dx: Type 2 DM - Controlled E11.9 Insulin: No^Disp: 50 Strip^Rfl: 11 Lancets lancets^Test blood sugar(s) 4 times daily. Dx: Type 2 DM - Controlled E11.9 Insulin: No^Disp: 100 Each^Rfl: 11 glucose 4 gram chewable tablet^Take 3-4 tablets for hypoglycemia. Recheck blood sugar in 15 min after dose^Disp: 30 tablet^Rfl: 0 atorvastatin (LIPITOR) 10 mg tablet^Take 1 tablet by mouth once daily.^Disp: 90 tablet^Rfl: 3 flash glucose sensor (FREESTYLE ANA PAULA 2 SENSOR) kit^1 Each once daily.^Disp: 2 Kit^Rfl: 3 potassium chloride (K-TAB) 10 mEq tablet^Take 1 tablet by mouth daily with breakfast. Take with lasix^Disp: 90 tablet^Rfl: 3 diclofenac (VOLTAREN) 1 % topical gel^Apply 2 g to affected area twice daily as needed.^Disp: 50 g^Rfl: 5 flash glucose scanning reader ([employer] ANA PAULA 2 READER)^1 Each once daily.^Disp: 1 Each^Rfl: 0 metoprolol tartrate, short acting, (LOPRESSOR) 25 mg tablet^Take 1 tablet by mouth twice daily.^Disp: 60 tablet^Rfl: 5 lidocaine (ANECREAM5) crea^Apply to affected area as needed.^Disp: 28 g^Rfl: 1 fluticasone (FLONASE) 50 mcg/actuation nasal spray^Use 2 Sprays in each nostril once daily. Rinse mouth after use.^Disp: 1 Each^Rfl: 11 albuterol HFA (VENTOLIN HFA) 90 mcg/actuation inhaler^Inhale 2 Puffs as instructed every 4 hours asneeded for wheezing/shortness of breath.^Disp: 18 g^Rfl: 2 ipratropium-albuterol (DUONEB) 0.5 mg-3 mg(2.5 mg base)/3 mL nebu^INHALE 3 ML INSTRUCTED EVERY 4HOURS NEEDED^Disp: 180 mL^Rfl: 2 FAMILY HISTORY Problem Relation Age of Onset Heart Mother Hypertension Father Psychiatry Father Bipolar Psychiatry Sister No Known Problems Brother No Known Problems Maternal Grandmother Cancer Maternal Grandfather Diabetes Paternal Grandmother Stroke Paternal Grandmother Great Grandmother No Known Problems Paternal Grandfather Cancer Paternal Aunt other ([place]) Paternal Aunt Great aunt Colon Cancer No Family History 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 Review of Systems: Review of Systems Constitutional: Positive for appetite change, chills and unexpected weight change. HENT: Positive for hearing loss. Respiratory: Positive for apnea and shortness of breath. Gastrointestinal: Positive for abdominal pain, constipation, diarrhea, nausea and vomiting. Gas All other systems reviewed and are negative. Are you taking any blood thinners? No Physical Examination: BP 124/74 Pulse 84 Ht 5' 3 (1.60m) Wt 305 lb (138.3kg) LMP 12/15/2021 BMI 54.04 kg/(m^2). Physical Exam Constitutional: Appearance: Normal appearance. She is obese. HENT: Head: Normocephalic and atraumatic. Eyes: General: No scleral icterus. Extraocular Movements: Extraocular movements intact. Conjunctiva/sclera: Conjunctivae normal. Pupils: Pupils are equal, round, and reactive to light. Cardiovascular: Rate and Rhythm: Normal rate and regular rhythm. Pulses: Normal pulses. Heart sounds: Normal heart sounds. Pulmonary: Effort: Pulmonary effort is normal. Breath sounds: Normal breath sounds. Abdominal: General: Abdomen is flat. Bowel sounds are normal. Palpations: Abdomen is soft. Tenderness: There is abdominal tenderness (epigastric TTP). Musculoskeletal: General: Normal range of motion. Cervical back: Normal range of motion and neck supple. Skin: General: Skin is warm and dry. Neurological: General: No focal deficit present. Mental Status: She is alert and oriented to person, place, and time. Psychiatric: Mood and Affect: Mood normal. Behavior: Behavior normal. Thought Content: Thought content normal. Judgment: Judgment normal. Assessment/Plan (R10.13) Epigastric pain (primary encounter diagnosis) (R11.0) Nausea (R19.7) Diarrhea, unspecified type (R63.0) Decreased appetite 1. Epigastric pain -- Patient with epigastric pain with eating. Has associated nausea, vomiting. -- Has held her Trulicity recently -- Will plan for EGD r/o gastritis, PUD, H.pylori. -- Consider GES Patient made provider aware she does not want to travel outside of [place] for testing. Was agreeable to go to [facility] for scope if able. - EGD DIAGNOSTIC; Future 2. Nausea -- Patient with epigastric pain with eating. Has associated nausea, vomiting. -- Has held her Trulicity recently -- Will plan for EGD r/o gastritis, PUD, H.pylori. -- Consider GES - EGD DIAGNOSTIC; Future 3. Diarrhea, unspecified type -- Notes alternating bowel habits. Does not want another colonoscopy at this time. 4. Decreased appetite -- Patient with epigastric pain with eating. Has associated nausea, vomiting. -- Has held her Trulicity recently -- Will plan for EGD r/o gastritis, PUD, H.pylori. -- Consider GES - EGD DIAGNOSTIC; Future Follow up in office PRN. Recommended to please call office/go to ER if fever, chills, chest pain, SOB, diarrhea, nausea, emesis, worsening abdominal pain, dehydration occurs I spent 20 minutes in the visit, with more than 50% of the total [id number] time of the visit in counseling / coordination of care. I have confirmed and edited as necessary, the PFSH and ROS obtained by others. Kelli Mendenhall PA-C June 03, 2022 3:59 PM documented in this encounterSt. [facility]01-12-2023 History of Present illness Narrative* Duran Blunt MD - 05/28/2022 3:27 PM EST Patient presents with: Right Knee - Established Patient, Knee Pain Duran Blunt MD Department of Orthopaedics Orthopaedics [facility] [address] [facility] [address] Dept: [phone] Dept May 28, 2022 CHIEF COMPLAINT: Established Patient and Knee Pain of the Right Knee HPI Pt with right knee pain after fall around [place]. No pain relief with medications, ice, heat or rest. AMB ROOMING INTAKE FLOWSHEET DATA Pain Pain Level: 7 Pain Location: Knee-Right Description: Sharp Duration Amount of Time: 3 Duration Units: Weeks Frequency: Continuous Intervention/Comfort measure: Pillow support ASSESSMENT: M25.561 Acute pain of right knee (primary encounter diagnosis) PLAN: She's trying to deal with the pain. Compression, elevation, NSAIDs, ice. I'll provide her onepain script. Her OAARS report was clean. Ms. Darren Reinoso was advised as to contrast therapies and/or to take analgesics/anti-inflammatoriesas needed and all contraindications were reviewed. OBJECTIVE: Ms. Darren Reinoso is a pleasant 42 year old in no apparent distress. Gen:LMP 12/15/2021 nl development, obese, no deformities ENT: Normocephalic, normal hearing, moist mucosa CV: Pulses:DP/PT= 2+ and symmetric, capillary refill < 2 secs, no peripheral edema/varicosities Skin: no rash, bruising or lesions. Good turgor. Psych: cooperative and appropriate, alert and oriented x 3, good mood and affect. Musculoskeletal: Varus knee. Mild swelling, mild effusion. TTP at the medial joint line. Imaging: * * *Final Report* * * DATE OF EXAM: May 13 2022 1:16PM WOX [id number] - XR KNEE 4V AP/PA BOTH+LAT/TORI RT / PROCEDURE REASON: Acute pain of right knee * * * * Physician Interpretation * * * * TITLE: XR KNEE 4V AP/PA BOTH+LAT/TORI RT CLINICAL INDICATION: Knee pain TECHNIQUE: AP/PA/merchant radiographs of both knees and lateral radiograph of the right knee COMPARISON: Radiographs dated February 05, 2020 FINDINGS: Right knee: Small to moderate suprapatellar joint effusion. No acute fracture or dislocation. Moderate medial compartmental joint space narrowing. Moderate patellofemoral compartmental joint space narrowing. Tricompartmental osteophyte production. Left knee: No acute fracture or dislocation. Moderate medial and moderate to severe patellofemoral compartmental joint space narrowing. Tricompartmental osteophyte production. Supporting Subjective Information Below: Past Surgical History: PAST SURGICAL HISTORY Procedure Laterality Date COLONOSCOPY FLX DX W/COLLJ SPEC WHEN PFRMD 03/02/2017 Colonoscopy HEMORRHOIDECTOMY INCISE FINGER TENDON SHEATH Right 2002 INCISE FINGER TENDON SHEATH Right 07/23/2021 Right thumb and middle trigger finger releases LAPS ABD PRTM&OMENTUM DX W/WO SPEC BR/WA SPX Laparoscopy, diagnostic LIG/TRNSXJ FLP TUBE ABDL/VAG APPR UNI/BI Tubal ligation OVARIAN CYSTECTOMY 1990 ovarian cysts removed PAST SURGICAL HISTORY OF 1999 ORIF left ankle PAST SURGICAL HISTORY OF right middle finger surgery, staph debridment. PAST SURGICAL HISTORY OF 07/28/2013 left carpal tunnel release RECTAL EXAM UNDER ANESTHESIA 2014 REVISE MEDIAN N/CARPAL TUNNEL SURG 06/08/2014 right capral tunnel release TNOT ELBOW LATERAL/MEDIAL DEBRIDE OPEN Right 04/02/2017 Right elbow extensor tendon debridement TNOT ELBOW LATERAL/MEDIAL DEBRIDE OPEN Left 05/18/2018 Left elbow extensor tendon debridement TONSILLECTOMY PRIMARY/SECONDARY <AGE 12 Tonsillectomy Medications: Current Outpatient Medications Medication Sig omeprazole (PRILOSEC) 40 mg capsule Take 1 capsule by mouth daily before breakfast. 1/2 hr before meal. famotidine (PEPCID) 20 mg tablet Take 1 tablet by mouth daily at bedtime. blood sugar diagnostic (BLOOD GLUCOSE TEST) test strip Test blood sugar(s) 4 times daily. Dx: Type 2 DM - Controlled E11.9 Insulin: No Lancets lancets Test blood sugar(s) 4 times daily. Dx: Type 2 DM - Controlled E11.9 Insulin: No glucose 4 gram chewable tablet Take 3-4 tablets for hypoglycemia. Recheck blood sugar in 15 min after dose atorvastatin (LIPITOR) 10 mg tablet Take 1 tablet by mouth once daily. flash glucose sensor (Super[employer] TechnologiesSTYLE ANA PAULA 2 SENSOR) kit 1 Each once daily. potassium chloride (K-TAB) 10 mEq tablet Take 1 tablet by mouth daily with breakfast. Take with lasix diclofenac (VOLTAREN) 1 % topical gel Apply 2 g to affected area twice daily as needed. flash glucose scanning reader ([employer] TechnologiesSTYLE ANA PAULA 2 READER) 1 Each once daily. metoprolol tartrate, short acting, (LOPRESSOR) 25 mg tablet Take 1 tablet by mouth twice daily. lidocaine (ANECREAM5) crea Apply to affected area as needed. fluticasone (FLONASE) 50 mcg/actuation nasal spray Use 2 Sprays in each nostril once daily. Rinse mouth after use. albuterol HFA (VENTOLIN HFA) 90 mcg/actuation inhaler Inhale 2 Puffs as instructed every 4 hours asneeded for wheezing/shortness of breath. ipratropium-albuterol (DUONEB) 0.5 mg-3 mg(2.5 mg base)/3 mL nebu INHALE 3 ML INSTRUCTED EVERY 4HOURS NEEDED sodium sulfate-potassium sulfate-magnesium sulfate (SUPREP BOWEL PREP KIT) 17.5-3.13-1.6 gram oral liquid Take 1 Bottle by mouth as directed for 2 days. Refer to instructions given by your provider. ondansetron (ZOFRAN) 4 mg tablet Take 1 tablet by mouth every 8 hours as needed for nausea/vomiting(for nausea.). TRUE METRIX GLUCOSE METER test blood sugar DIRECTED SYMBICORT 160-4.5 mcg/actuation inhaler cetirizine (ZYRTEC) 10 mg tablet montelukast (SINGULAIR) 10 mg tablet lamoTRIgine (LAMICTAL) 200 mg tablet UNILET SUPER THIN LANCETS 30 gauge Test blood sugar(s) 4 times daily. nortriptyline (PAMELOR) 50 mg capsule Take 1 capsule by mouth daily at bedtime. levothyroxine (SYNTHROID) 50 mcg tablet TAKE 1 TABLET BY MOUTH DAILY TAKE ON EMPTY STOMACH. FOR THYROID furosemide (LASIX) 40 mg tablet Take 1 tablet by mouth once daily. Current Facility-Administered Medications Medication Dose Route Frequency perflutren lipid microspheres 1.3 mL in NaCl (PF) 0.9% 10 mL injection (DEFINITY) INTRAVENOUS DIRECTED PRN sodium chloride 0.9 % (flush) 10 mL (BD POSIFLUSH) 10 mL INTRAVENOUS DIRECTED PRN Allergies: Amoxicillin, Codeine, Darvocet A500 [Propoxyphene N-Acetaminophen], Propoxyphene, and Sulfa (Sulfonamide Antibiotics) ROS: General (negative for fatigue, malaise, weight loss/gain) HEENT (negative for headache, earache, recent vision changes, sinus pain, sore throat) Respiratory (no recent shortness of breath, hemoptysis) CV (negative for chest tightness, palpitations) Musculoskeletal (see HPI) Psych (no depression, anxiety) Duran Blunt MD documented in this encounterSt. [facility]2023 History of Present illness Narrative* Caryn Lowery, ARCHITECTURAL DRAFTSMAN.ICT SUPPORT ENGINEER - 05/25/2022 10:48 AM EST CC: Patient presents with: Recheck: DM follow up HPI Darren Reinoso is a 42 year old female who presents today for low blood sugars. Called office last week with concerns of blood sugar in the 60s while she felt dizzy and lightheaded and could not get glucose to normal range with food and drink. Was instructed by triage nurse to go to ER but patient declined. Glucose tablets ordered for patient, and got a glucometer to check blood sugars and compare to freestyle ana paula readings. Took glucose tablets once with day of low blood sugar readings. Various blood pressure readings typically ranging from 100s-140 outside of low readings one day last week. Has dizziness intermittently as well. Has had ongoing issues with abdominal pain and decreased appetite. Possible diverticulitis but patient did not get STAT CT completed as ordered until after antibiotic treatment. LLQ pain that is intermittent and sharp at times. Not correlated with eating or activity as anything seems to increase it. Eats an average of 1 meal a day without snacking. Drinks mainly water with a small amount of juice and coffee. The meals typically consist of salad with dressing. Ate yesterday - maksim salad and 1 chicken thigh and 1 evgeny potato myers. Sometimes eats 2 meals a day but with the pain, nausea, and decreased appetite she just doesn't want to eat. REVIEW OF SYSTEMS General: no fevers, no chills, no night sweats, no recurrent infections, no change in energy, and no significant changes in weight Respiratory: no cough, no wheezing, no shortness of breath, no hemoptysis Cardiovascular: no chest pain, no chest pressure, no palpitations, and no swelling GI: denies constipation, diarrhea, heartburn, or difficulty swallowing. : No history of dysuria, frequency or incontinence Skin: Negative for lesions, rash, and itching Endocrine: no fatigue, no polyuria, no polyphagia, and no polydipsia Neurologic: No headache, weakness, numbness,, memory loss, syncope. PAST MEDICAL HISTORY Diagnosis Date Adjustment disorder with depressed mood Anxiety state, unspecified Dysmenorrhea Hearing loss no aids Other and unspecified ovarian cyst Ovarian cyst RECOVERING ALCOHOL, MARIJUANA & COCAINE PAST SURGICAL HISTORY Procedure Laterality Date COLONOSCOPY FLX DX W/COLLJ SPEC WHEN PFRMD 03/02/2017 Colonoscopy INCISE FINGER TENDON SHEATH Right 2002 INCISE FINGER TENDON SHEATH Right 07/23/2021 Right thumb and middle trigger finger releases LAPS ABD PRTM&OMENTUM DX W/WO SPEC BR/WA SPX Laparoscopy, diagnostic LIG/TRNSXJ FLP TUBE ABDL/VAG APPR UNI/BI Tubal ligation OVARIAN CYSTECTOMY 1990 ovarian cysts removed PAST SURGICAL HISTORY OF 1999 ORIF left ankle PAST SURGICAL HISTORY OF right middle finger surgery, staph debridment. PAST SURGICAL HISTORY OF 07/28/2013 left carpal tunnel release RECTAL EXAM UNDER ANESTHESIA 2015 REVISE MEDIAN N/CARPAL TUNNEL SURG 06/08/2014 right capral tunnel release TNOT ELBOW LATERAL/MEDIAL DEBRIDE OPEN Right 04/02/2017 Right elbow extensor tendon debridement TNOT ELBOW LATERAL/MEDIAL DEBRIDE OPEN Left 05/18/2018 Left elbow extensor tendon debridement TONSILLECTOMY PRIMARY/SECONDARY <AGE 12 Tonsillectomy ALLERGIES Amoxicillin, Codeine, Darvocet A500 [Propoxyphene N-Acetaminophen], and Sulfa (Sulfonamide Antibiotics) MEDICATIONS blood sugar diagnostic (BLOOD GLUCOSE TEST) test strip^Test blood sugar(s) 4 times daily. Dx: Type 2 DM - Controlled E11.9 Insulin: No^Disp: 50 Strip^Rfl: 11 Lancets lancets^Test blood sugar(s) 4 times daily. Dx: Type 2 DM - Controlled E11.9 Insulin: No^Disp: 100 Each^Rfl: 11 glucose 4 gram chewable tablet^Take 3-4 tablets for hypoglycemia. Recheck blood sugar in 15 min after dose^Disp: 30 tablet^Rfl: 0 atorvastatin (LIPITOR) 10 mg tablet^Take 1 tablet by mouth once daily.^Disp: 90 tablet^Rfl: 3 flash glucose sensor (FREESTYLE ANA PAULA 2 SENSOR) kit^1 Each once daily.^Disp: 2 Kit^Rfl: 3 famotidine (PEPCID) 20 mg tablet^Take 1 tablet by mouth twice daily.^Disp: 180 tablet^Rfl: 3 potassium chloride (K-TAB) 10 mEq tablet^Take 1 tablet by mouth daily with breakfast. Take with lasix^Disp: 90 tablet^Rfl: 3 naproxen (NAPROSYN) 500 mg tablet^Take 1 tablet by mouth twice daily as needed (for pain/inflammation). Take with food.^Disp: 30 tablet^Rfl: 0 diclofenac (VOLTAREN) 1 % topical gel^Apply 2 g to affected area twice daily as needed.^Disp: 50 g^Rfl: 5 flash glucose scanning reader (FREESTYLE ANA PAULA 2 READER)^1 Each once daily.^Disp: 1 Each^Rfl: 0 omeprazole (PRILOSEC) 20 mg capsule^Take 1 capsule by mouth daily before breakfast. 1/2 hr before meal.^Disp: 30 capsule^Rfl: 5 metoprolol tartrate, short acting, (LOPRESSOR) 25 mg tablet^Take 1 tablet by mouth twice daily.^Disp: 60 tablet^Rfl: 5 lidocaine (ANECREAM5) crea^Apply to affected area as needed.^Disp: 28 g^Rfl: 1 naproxen (NAPROSYN) 500 mg tablet^Take 1 tablet by mouth twice daily as needed (for pain/inflammation). Take with food.^Disp: 30 tablet^Rfl: 1 hydrocortisone (ANUSOL-HC) 2.5 % rectal cream^Use as per instructions.^Disp: 28 g^Rfl: 0 nortriptyline (PAMELOR) 50 mg capsule^TAKE 1 CAPSULE BY MOUTH AT BEDTIME^Disp: 30 capsule^Rfl: 5 levothyroxine (SYNTHROID) 50 mcg tablet^TAKE 1 TABLET BY MOUTH DAILY TAKE ON EMPTY STOMACH. FOR THYROID^Disp: 30 tablet^Rfl: 5 furosemide (LASIX) 40 mg tablet^TAKE 1 TABLET BY MOUTH DAILY^Disp: 30 tablet^Rfl: 5 fluticasone (FLONASE) 50 mcg/actuation nasal spray^Use 2 Sprays in each nostril once daily. Rinse mouth after use.^Disp: 1 Each^Rfl: 11 albuterol HFA (VENTOLIN HFA) 90 mcg/actuation inhaler^Inhale 2 Puffs as instructed every 4 hours asneeded for wheezing/shortness of breath.^Disp: 18 g^Rfl: 2 ipratropium-albuterol (DUONEB) 0.5 mg-3 mg(2.5 mg base)/3 mL nebu^INHALE 3 ML INSTRUCTED EVERY 4HOURS NEEDED^Disp: 180 mL^Rfl: 2 lamoTRIgine (LAMICTAL) 100 mg tablet^100 mg. ^Disp: ^Rfl: FAMILY HISTORY Problem Relation Age of Onset Heart Mother Hypertension Father Psychiatry Father Bipolar Psychiatry Sister No Known Problems Brother No Known Problems Maternal Grandmother Cancer Maternal Grandfather Diabetes Paternal Grandmother Stroke Paternal Grandmother Great Grandmother No Known Problems Paternal Grandfather Cancer Paternal Aunt other ([place]) Paternal Aunt Great aunt Social History Tobacco Use Smoking status: Every Day Packs/day: 0.50 Types: Cigarettes Start date: 05/17/1992 Smokeless tobacco: Never Vaping Use Vaping Use: Never used Substance Use Topics Alcohol use: Yes Comment: Seldom- uses once every couple months Drug use: Not Currently Comment: marijuana h/o, 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 PHYSICAL EXAM BP 122/78 Pulse 88 Resp 16 Wt (!) 137.9 kg (304 lb) LMP 12/15/2021 BMI 53.86 kg/m General Appearance: well appearing, in no acute distress, alert Skin: Skin color, texture, turgor normal for age; Eyes: conjunctiva pink and moist, no icterus, sclera white, non-injected Lungs: Lungs clear to auscultation. No wheezing, rhonchi, rales. Heart: RRR without murmur, gallop, or rubs. No ectopy Abdomen: Abdomen soft, Bowel sounds normal. No masses, organomegaly. Epigastric tenderness noted tomid epigastric with some grimacing. Negative for guarding, rebound pain, or rigidity. Neuro:Gait normal. Sensation grossly intact. speech normal, mental status intact, muscle tone normal, muscle strength normal Health maintenance reviewed with patient: HEPATITIS B(1 of 3 - 3-dose series) Never done PNEUMOCOCCAL(1 - PCV) Never done BP CONTROLLED (<130/80) Never done PAP TESTING due on 08/23/2013 HPV TESTING due on 08/23/2013 MAMMOGRAM Never done COLORECTAL CANCER SCREENING due on 03/02/2022 DEPRESSION ASSESSMENT Never done SPIROMETRY due on 07/03/2022 COVID-19 VACCINE(1) due on 07/03/2022 HBA1C due on 09/08/2022 DTAP,TDAP,TD(2 - Td or Tdap) due on 10/03/2022 LDL CHOLESTEROL due on 03/10/2023 ANNUAL PCP TEAM CHRONIC DISEASE VISIT due on 04/15/2023 INFLUENZA Completed HIV SCREENING Completed URINE ALBUMIN:CREATININE RATIO Discontinued DILATED RETINAL EXAM Discontinued DIABETIC FOOT EXAM Discontinued HEPATITIS C SCREENING Discontinued DATA REVIEWED: Most recent labs and imaging results. ASSESSMENT/PLAN: 1. Controlled type 2 diabetes mellitus without complication, without long-term current use of insulin (HCC) - ICD9: 250.00, ICD10: E11.9 (primary diagnosis) Controlled. - not on current treatment and having lower blood sugars last week. Discussed the importance of eating small amounts regularly throughout the day to control glucose - requested restarting once a week injectable but with nausea, abdominal pain, decreased appetite, and episode of low blood sugar last week this would not be an appropriate option at this time. - Blood glucose monitoring on a once a day schedule - BP goal of <130/80 - LDL goal of <100 - HGB A1C 2. Epigastric pain - ICD9: 789.06, ICD10: R10.13 - Now epigastric in nature, possible gastritis versus ulcer versus other etiology., Continue with plans to see GI in a week. Also increasing omeprazole and rechecking lab levels - CBC + DIFF - COMP METABOLIC PANEL - OMEPRAZOLE 40 MG CAPSULE,DELAYED RELEASE 3. Decreased appetite - ICD9: 783.0, ICD10: R63.0 As above - CBC + DIFF - COMP METABOLIC PANEL 4. Nausea - ICD9: 787.02, ICD10: R11.0 See #2 - CBC + DIFF - COMP METABOLIC PANEL 5. Dizziness - ICD9: 780.4, ICD10: R42 - discussed low blood sugar vs not enough calories. Patient to increase dietary intake to small meals throughout the day and if no improvement to follow up back up. Will check for other etiology as well - go to ER for increased dizziness, weakness, numbness, confusion, difficulty speaking, increased abdominal pain, fever, chest pain, shortness of breath, or any other urgent concerns. - CBC + DIFF - COMP METABOLIC PANEL Prescription instructions reviewed with patient as applicable. Potential red flag symptoms discussed with the patient. Reviewed appropriate action plan to take if red flag symptoms occur. Patient agreeable to treatment plan. Caryn Lowery APRN.CNP documented in this encounterSt. [facility]01-06-2023 Miscellaneous Notes* Telephone Encounter - Katie Moon Ma - 05/22/2022 3:47 PM EST Patient notified, confirms she has not been taking her weekly injectable however would like to start back up on it. Advised it would be discussed in upcoming appointment. * Telephone Encounter - Caryn Lowery APRN.CNP - 05/22/2022 3:01 PM EST Please let patient know that I have also ordered glucose tablets to use if unable to get blood sugar up. Also, please verify she is NOT taking her diabetic medications including her once a week injectable as this was discontinued months ago. Thank you Caryn Lowery APRN.JACINTA * Telephone Encounter - Hope Dickey LPN - 05/22/2022 11:06 AM EST Patient calling back asking for generic glucose meter and strips and lancets, she spoke to her insurance. Patient asking for rx to be sent to [facility] pharmacy. Patient has no glucose meter to double check blood sugar with the Ana Paula sensor. Pending rx to file Please advise * Telephone Encounter - Silviano Root RN - 05/22/2022 10:41 AM EST Patient reports she spoke with [facility] last night because her BS went as low as 62. Was advised to ER but did not go. Reports BS yesterday- 95 fasting, 182 after breakfast, 66 before lunch, 70 after lunch, 89 before dinner, 70 after dinner, 64 before bed, 62 when called NOC at 1 am. Reports she did noteat much food yesterday. Reports after speaking with [facility] ate 3 TBLs sugar in warm water, 4 packs ofsour patch candy, peanut butter, and orn crackers. At 3 am blood sugar was 114. Today fasting 95, next check 77, now- 84. Reports she is not taking any diabetic medications, has been out of the injectable for 3 months. Reports blood sugar readings on 05-18-22: 159, 102, 70, 160, 87, 106, 73. Patient scheduled appt with [facility] for Wednesday. Patient declined same day appt today. Advised if BS drops below 70 for longer than 30 min before then will need to go to ER. Patient agreeable. Patient reports her freestyle ana paula [address] where she can check her blood sugar with a strip, but needs test strips and lancets. Patient will check with insurance to see if this is something she can get, and if they will cover it. Patient will also check with insurance to see if they don't cover strips for freestyle, if they will cover for her to have a glucometer and which one they would cover and let provider know. States when her blood sugar drops low, she would like to be able to compare the reading with another device. documented in this encounterSt. [facility]01-06-2023 Miscellaneous Notes* Telephone Encounter - Katie Moon Ma - 05/22/2022 9:49 AM EST Left message for return call. * Telephone Encounter - Caryn Lowery APRN.CNP - 05/22/2022 8:51 AM EST Noted and agree. Please call patient and verify she is still not taking any diabetic medications including the once a week injectable. She needs seen after ER visit Thank you Caryn Lowery APRN.CNP * Telephone Encounter - Geraldine Espinosa RN - 05/22/2022 12:56 AM EST Reason for call: Patient calling with concern for persistent hypoglycemia. BG in the 60's this evening despite multiple attempts at eating candy, juice and ron crackers. Patient states she feels lightheaded and slightly weak. States she is able to stand, denies any concerns for passing out. Outcome: Recommendation to go to the ED now, call 911 if needed for any worsening symptoms. Patientverbalized understanding and plans to comply. is present in the home with patient. Reason for Disposition [1] Low blood sugar symptoms persist > 30 minutes AND [2] using low blood sugar Care Advice [1] Low blood glucose (< 70 mg/dL or 3.9 mmol/L) persists > 30 minutes AND [2] using low blood sugar Care Advice Protocols used: Diabetes - Low Blood Ogodd-QIHEF-HJ documented in this encounterSt. Anthony'[facility] Hospital01-03-2023 Miscellaneous Notes* Telephone Encounter - Tete Gonzalez RN - 05/19/2022 11:52 AM EST Patient has been identified by name and date of : Yes Pharmacy phones for refill(s): Requested Prescriptions Pending Prescriptions Disp Refills atorvastatin (LIPITOR) 10 mg tablet 90 tablet 3 Sig: Take 1 tablet by mouth once daily. Date of last office visit in primary care: 04/15/22 Last 2 Encounter Wt Readings: Date: Wt: 05/13/2022 137 kg (302 lb) 04/15/2022 136.1 kg (300 lb) Previous labs/tests for medication: Cholesterol: HDL Cholesterol (mg/dL) Date Value 03/10/2022 44 10/15/2020 56 LDL Cholesterol (mg/dL) Date Value 03/10/2022 63 10/15/2020 79 ALT (U/L) Date Value 03/26/2022 19 04/24/2021 27 Non HDL Cholesterol, Nonfasting (mg/dL) Date Value 01/31/2019 119 Non HDL Cholesterol (mg/dL) Date Value 03/10/2022 128 10/15/2020 123 Please advise. Thank you. Tete Gonzalez RN documented in this encounterSt. Anthony'S Hospital12-30-2022 Miscellaneous Notes* Telephone Encounter - Marita Gonzalez RN - 05/15/2022 2:58 PM EST Patient has been identified by name and date of : Yes, Marita Gonzalez RN Date 05/15/2022 Time 2:58 pmr Pharmacy phones for refill(s): Requested Prescriptions Pending Prescriptions Disp Refills famotidine (PEPCID) 20 mg tablet 180 tablet 3 Sig: Take 1 tablet by mouth twice daily. potassium chloride (K-TAB) 10 mEq tablet 90 tablet 3 Sig: Take 1 tablet by mouth daily with breakfast. Take with lasix Date of last office visit with pcp: 05/01/2022 Future appt: none Last 2 Encounter Wt Readings: Date: Wt: 05/13/2022 137 kg (302 lb) 04/15/2022 136.1 kg (300 lb) Previous labs/tests for medication: Blood Pressure: BUN (mg/dL) Date Value 03/26/2022 13 07/01/2021 10 Sodium (mmol/L) Date Value 03/26/2022 140 07/01/2021 139 Last 1 Encounter BP Readings: Date: BP: 05/13/2022 128/82 Liver Function: ALT (U/L) Date Value 03/26/2022 19 04/24/2021 27 AST (U/L) Date Value 03/26/2022 14 04/24/2021 17 03/26/2022 Potassium 4.3 Please advise. Thank you. Marita Gonzalez RN documented in this encounterSt. Anthony'S Hospital12-29-2022 Miscellaneous Notes* Telephone Encounter - Florencia Barrios RN - 05/14/2022 2:21 PM EST [facility] calling on behalf of patient for refill of Ana Paula 2 sensors. Requesting increase to 2kits so patient only needs to go to pharmacy once a month instead of every 14 days. Pended. Patient has been identified by name and date of : Yes, Provider Older Date: 05/14/22 Time: 1430 PM Pharmacy phones for refill(s): Requested Prescriptions Pending Prescriptions Disp Refills flash glucose sensor (FREESTYLE ANA PAULA 2 SENSOR) kit 2 Kit 3 Si Each once daily. Date of last office visit with pcp: Date of last office visit in primary care: 04/15/22 Last 2 Encounter Wt Readings: Date: Wt: 05/13/2022 137 kg (302 lb) 04/15/2022 136.1 kg (300 lb) Previous labs/tests for medication: Diabetes: Hemoglobin A1C (%) Date Value 03/10/2022 5.6 04/24/2021 6.7 10/15/2020 6.1 Hemoglobin A1C (POCT) (%) Date Value 01/23/2022 6.1 07/03/2021 6.1 Please advise. Thank you. Florencia Barrios RN documented in this encounterSt. Anthony'S Hospital12-28-2022 Miscellaneous Notes* Telephone Encounter - Deloris Cullen RN - 05/13/2022 9:25 AM EST Phone call to patient. Notified of provider's message below and she verbalized understanding. Appointment scheduled with Dr. Blunt on , 05/28 at [place] location. * Telephone Encounter - Leilani Mahmood PA-C - 05/12/2022 4:07 PM EST We are not able to provide her with norco. She should go the urgent care or schedule a visit with Dr. Blunt to discuss her knee pain. * Telephone Encounter - Manju Alejandre LPN - 05/12/2022 3:49 PM EST Patient call in stating she fell 1 week ago and busted the shit out of my right knee Patients states she has tried naproxen 500 mg she had from prior medical issue. Patient states she has also tried ice and heat and nothing is helping. Patient states that if provider would so happen to give norco she would definitely try it and use medication only has directed. Advised patient to present to Express care for evaluation and scans. Patient states she will present to express care tomorrow. Manju Alejandre LPN documented in this encounterSt. Anthony'S Hospital11-30-2022 Miscellaneous Notes* Telephone Encounter - Caryn Lowery APRN.CNP - 04/15/2022 7:19 PM EST Discussed in appointment. Caryn Lowery APRN.JACINTA * Telephone Encounter - Samira Lazo - 04/15/2022 10:42 AM EST Patient called stating she has an appt today with Caryn and a CT scheduled for the 8th at [place]. She is asking if she needs to keep appointment today and if she should try to have CT scheduled sooner. Please call patient and advise. documented in this encounterSt. Anthony'S Hospital11-30-2022 History of Present illness Narrative* Caryn Lowery, ARCHITECTURAL DRAFTSMAN.ICT SUPPORT ENGINEER - 04/15/2022 2:43 PM EST CC: Patient presents with: Recheck: Follow up HPI Darren Reinoso is a 42 year old female who presents today for abdominal pain nausea and decreased appetite. Did not get CT scan completed as ordered. Did take the antibiotics that were prescribed. [facility] Did schedule with GI and will beseen within the next month. Nausea has improved and is able to tolerate food better than previous Still not able to eat too much at once for severe nausea. Diarrhea is no longer liquid but soft non-formed stool. States she realized if she eats something greasy it will be liquid. She still has her gallbladder. Last colonoscopywas 5 years ago with small polyp being identified with recommended 5 year repeat of colonoscopy Pain to LLQ is improving. Has had improved appetite. Has chills at night and took temperature whichwas 97.1. Denies fever, heartburn, chest pain, shortness of breath, dizziness, syncope, or fever. DIABETES MELLITUS: Ms. Reinoso denies excessive thirst or increased frequency of urination, chest pain or dyspnea , numbness, tingling or pain in extremities, new or unusual visual symptoms, low sugar/hypoglycemic reactions, and lightheadedness/dizziness. Follows a diabetic diet most of the time. Sheis compliant with medication(s) and is tolerating med(s) without any side effects Still holding trulicity until abdominal pain is diagnosed. She reports checking her glucose on a continuous schedule with sugars in the 80s-110s range. Patient's last HgA1C was Hemoglobin A1C (%) Date Value 03/10/2022 5.6 04/24/2021 6.7 10/15/2020 6.1 Hemoglobin A1C (POCT) (%) Date Value 01/23/2022 6.1 07/03/2021 6.1 ) REVIEW OF SYSTEMS General: no fevers, no night sweats, no recurrent infections, no change in energy, and no significant changes in weight Respiratory: no cough, no wheezing, no shortness of breath, no hemoptysis Cardiovascular: no chest pain, no chest pressure, no palpitations, and no swelling GI: See HPI Endocrine: no fatigue, no cold intolerance, no heat intolerance, no polyuria, no polyphagia, and nopolydipsia Neurologic: No headache, weakness, numbness, tingling, dizziness, syncope. PAST MEDICAL HISTORY Diagnosis Date Adjustment disorder with depressed mood Anxiety state, unspecified Dysmenorrhea Hearing loss no aids Other and unspecified ovarian cyst Ovarian cyst RECOVERING ALCOHOL, MARIJUANA & COCAINE PAST SURGICAL HISTORY Procedure Laterality Date COLONOSCOPY FLX DX W/COLLJ SPEC WHEN PFRMD 03/02/2017 Colonoscopy INCISE FINGER TENDON SHEATH Right 2002 INCISE FINGER TENDON SHEATH Right 07/23/2021 Right thumb and middle trigger finger releases LAPS ABD PRTM&OMENTUM DX W/WO SPEC BR/WA SPX Laparoscopy, diagnostic LIG/TRNSXJ FLP TUBE ABDL/VAG APPR UNI/BI Tubal ligation OVARIAN CYSTECTOMY 1990 ovarian cysts removed PAST SURGICAL HISTORY OF 1999 ORIF left ankle PAST SURGICAL HISTORY OF right middle finger surgery, staph debridment. PAST SURGICAL HISTORY OF 07/28/2013 left carpal tunnel release RECTAL EXAM UNDER ANESTHESIA 2014 REVISE MEDIAN N/CARPAL TUNNEL SURG 06/08/2014 right capral tunnel release TNOT ELBOW LATERAL/MEDIAL DEBRIDE OPEN Right 04/02/2017 Right elbow extensor tendon debridement TNOT ELBOW LATERAL/MEDIAL DEBRIDE OPEN Left 05/18/2018 Left elbow extensor tendon debridement TONSILLECTOMY PRIMARY/SECONDARY <AGE 12 Tonsillectomy ALLERGIES Amoxicillin, Codeine, Darvocet A500 [Propoxyphene N-Acetaminophen], and Sulfa (Sulfonamide Antibiotics) MEDICATIONS cefdinir (OMNICEF) 300 mg capsule^Take 1 capsule by mouth twice daily for 7 days.^Disp: 14 capsule^Rfl: 0 metroNIDAZOLE (FLAGYL) 500 mg tablet^Take 1 tablet by mouth every 8 hours for 7 days.^Disp: 21 tablet^Rfl: 0 flash glucose scanning reader ([employer] ANA PAULA 2 READER)^1 Each once daily.^Disp: 1 Each^Rfl: 0 flash glucose sensor (FREESTYLE ANA PAULA 2 SENSOR) kit^1 Each once daily.^Disp: 1 Kit^Rfl: 3 omeprazole (PRILOSEC) 20 mg capsule^Take 1 capsule by mouth daily before breakfast. 1/2 hr before meal.^Disp: 30 capsule^Rfl: 5 metoprolol tartrate, short acting, (LOPRESSOR) 25 mg tablet^Take 1 tablet by mouth twice daily.^Disp: 60 tablet^Rfl: 5 lidocaine (ANECREAM5) crea^Apply to affected area as needed.^Disp: 28 g^Rfl: 1 polyethylene glycol 3350 (MIRALAX) 17 gram/dose powder^Use 1/2-1 capful daily as needed for constipation^Disp: 116 g^Rfl: 1 naproxen (NAPROSYN) 500 mg tablet^Take 1 tablet by mouth twice daily as needed (for pain/inflammation). Take with food.^Disp: 30 tablet^Rfl: 1 diclofenac (VOLTAREN) 1 % topical gel^Apply 2 g to affected area twice daily as needed.^Disp: 50 g^Rfl: 1 hydrocortisone (ANUSOL-HC) 2.5 % rectal cream^Use as per instructions.^Disp: 28 g^Rfl: 0 nortriptyline (PAMELOR) 50 mg capsule^TAKE 1 CAPSULE BY MOUTH AT BEDTIME^Disp: 30 capsule^Rfl: 5 levothyroxine (SYNTHROID) 50 mcg tablet^TAKE 1 TABLET BY MOUTH DAILY TAKE ON EMPTY STOMACH. FOR THYROID^Disp: 30 tablet^Rfl: 5 furosemide (LASIX) 40 mg tablet^TAKE 1 TABLET BY MOUTH DAILY^Disp: 30 tablet^Rfl: 5 fluticasone (FLONASE) 50 mcg/actuation nasal spray^Use 2 Sprays in each nostril once daily. Rinse mouth after use.^Disp: 1 Each^Rfl: 11 nabumetone (RELAFEN) 500 mg tablet^Take 1 tablet by mouth twice daily.^Disp: 60 tablet^Rfl: 1 potassium chloride (K-TAB) 10 mEq tablet^Take 1 tablet by mouth daily with breakfast. Take with lasix^Disp: 90 tablet^Rfl: 3 famotidine (PEPCID) 20 mg tablet^Take 1 tablet by mouth twice daily.^Disp: 180 tablet^Rfl: 3 atorvastatin (LIPITOR) 10 mg tablet^Take 1 tablet by mouth once daily.^Disp: 90 tablet^Rfl: 3 albuterol HFA (VENTOLIN HFA) 90 mcg/actuation inhaler^Inhale 2 Puffs as instructed every 4 hours asneeded for wheezing/shortness of breath.^Disp: 18 g^Rfl: 2 ipratropium-albuterol (DUONEB) 0.5 mg-3 mg(2.5 mg base)/3 mL nebu^INHALE 3 ML INSTRUCTED EVERY 4HOURS NEEDED^Disp: 180 mL^Rfl: 2 lamoTRIgine (LAMICTAL) 100 mg tablet^100 mg. ^Disp: ^Rfl: FAMILY HISTORY Problem Relation Age of Onset Heart Mother Hypertension Father Psychiatry Father Bipolar Psychiatry Sister No Known Problems Brother No Known Problems Maternal Grandmother Cancer Maternal Grandfather Diabetes Paternal Grandmother Stroke Paternal Grandmother Great Grandmother No Known Problems Paternal Grandfather Cancer Paternal Aunt other ([place]) Paternal Aunt Great aunt Social History Tobacco Use Smoking status: Every Day Packs/day: 0.50 Types: Cigarettes Start date: 05/17/1992 Smokeless tobacco: Never Vaping Use Vaping Use: Never used Substance Use Topics Alcohol use: Yes Comment: Seldom- uses once every couple months Drug use: Not Currently Comment: marijuana h/o, 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 PHYSICAL EXAM BP 126/78 Pulse 84 Resp 16 Wt 136.1 kg (300 lb) LMP 12/15/2021 BMI 53.16 kg/m General Appearance: well appearing, in no acute distress, alert Skin: Skin color, texture, turgor normal for age; Eyes: conjunctiva pink and moist, no icterus, sclera white, non-injected Lungs: Lungs clear to auscultation. No wheezing, rhonchi, rales. Heart: RRR without murmur, gallop, or rubs. No ectopy Abdomen: Abdomen soft, Bowel sounds normal. No masses, organomegaly, Tenderness reported with palpation of LLQ without grimacing, guarding, rigidity or rebound pain which is greatly improved from last week. Health maintenance reviewed with patient: HEPATITIS B(1 of 3 - 3-dose series) Never done PNEUMOCOCCAL(1 - PCV) Never done BP CONTROLLED (<130/80) Never done PAP TESTING due on 08/23/2013 HPV TESTING due on 08/23/2013 MAMMOGRAM Never done DEPRESSION ASSESSMENT Never done COLORECTAL CANCER SCREENING due on 03/02/2022 SPIROMETRY due on 07/03/2022 COVID-19 VACCINE(1) due on 07/03/2022 HBA1C due on 09/08/2022 DTAP,TDAP,TD(2 - Td or Tdap) due on 10/03/2022 LDL CHOLESTEROL due on 03/10/2023 ANNUAL PCP TEAM CHRONIC DISEASE VISIT due on 04/08/2023 INFLUENZA Completed HIV SCREENING Completed URINE ALBUMIN:CREATININE RATIO Discontinued DILATED RETINAL EXAM Discontinued DIABETIC FOOT EXAM Discontinued HEPATITIS C SCREENING Discontinued DATA REVIEWED: Most recent labs and imaging results. ASSESSMENT/PLAN: 1. Left lower quadrant abdominal pain - ICD9: 789.04, ICD10: R10.32 (primary diagnosis) - poss diverticulitis since symptoms are improving , still needs CT of abdomen since still nauseated and decrease some pain remained. - reiterated to patient she needs to stop trulicity if she is still continuing with this one week injectable. Per patient she has stopped this but is worried she will gain weight again - needs to eat small multiple meals during the day as tolerated. - continue with plans to see GI, will need colonoscopy but patient not wanting to schedule that at this time - follow up depending on CT results - go to ER for increased pain, fever, vomiting, chest pain, or any other urgent concerns 2. Nausea - ICD9: 787.02, ICD10: R11.0 - improving but still present - continue to hold trulicity, get CT completed as previously ordered, and see GI as scheduled 3. Diarrhea, unspecified type - ICD9: 787.91, ICD10: R19.7 Resolved, if this returns discussed with patient we would need to do stool samples. 4. Controlled type 2 diabetes mellitus without complication, without long-term current use of insulin (HCC) - ICD9: 250.00, ICD10: E11.9 Controlled with diet at this time - BP goal of <130/80 - LDL goal of <100 - uses CGM Prescription instructions reviewed with patient as applicable. Potential red flag symptoms discussed with the patient. Reviewed appropriate action plan to take if red flag symptoms occur. Patient agreeable to treatment plan. Caryn Lowery APRN.CNP documented in this encounterSt. [facility]11[facility] Miscellaneous Notes* Telephone Encounter - Babar Phillip MD - 04/13/2022 6:35 PM EST noted * Telephone Encounter - Shelia Houston LPN - 04/10/2022 11:25 AM EST Spoke with patient and she states has been getting low reading and has noticed the sugar is up and down. Explain to patient what a normal blood sugar range is. When getting readings in the 70's suggested peanut butter crackers or small glass of juice. She does complain that she has little energy to complete tasks. Did check fingerstick with continuous glucose monitor and reading were the same. * Telephone Encounter - Samira Davenport Pss - 04/10/2022 9:30 AM EST Patient called stating that her ana paula monitor is going off when sugars are normal or below. She is asking if she possibly needs a new one. Please advise patient. documented in this encounterSt. [facility]11-[facility]22 History of Present illness Narrative* Caryn Lowery, LILI.ICT SUPPORT ENGINEER - 04/08/2022 2:34 PM EST CC: Patient presents with: Recheck: 2 week follow up HPI Darren Reinoso is a 42 year old female who presents today for abdominal pain follow up. Did not tolerate an increase of trulicity and had abdominal pain and nausea. Lab work and US unremarkable, instructed to hold trulicity. Some improvement but still with some diarrhea, nausea, and abdominal pain. States sometimes at night she feels chilled. Diarrhea is not every day but when it occurs, denies any mucous foul smelling, or blood in stool. Denies vomiting, fever, chest pain, shortness of breath, or fatigue. REVIEW OF SYSTEMS General: no fevers, no night sweats, no recurrent infections, no change in appetite, no change in energy, and no significant changes in weight Respiratory: no cough, no wheezing, no shortness of breath, no hemoptysis Cardiovascular: no chest pain, no chest pressure, no palpitations, and no swelling GI: See HPI : No history of dysuria, frequency or incontinence Skin: Negative for lesions, rash, and itching Endocrine: no fatigue, no cold intolerance, no heat intolerance, no polyuria, no polyphagia, and nopolydipsia Neurologic: No headache, weakness, numbness, tingling, dizziness, syncope. PAST MEDICAL HISTORY Diagnosis Date Adjustment disorder with depressed mood Anxiety state, unspecified Dysmenorrhea Hearing loss no aids Other and unspecified ovarian cyst Ovarian cyst RECOVERING ALCOHOL, MARIJUANA & COCAINE PAST SURGICAL HISTORY Procedure Laterality Date COLONOSCOPY FLX DX W/COLLJ SPEC WHEN PFRMD 03/02/2017 Colonoscopy INCISE FINGER TENDON SHEATH Right 2002 INCISE FINGER TENDON SHEATH Right 07/23/2021 Right thumb and middle trigger finger releases LAPS ABD PRTM&OMENTUM DX W/WO SPEC BR/WA SPX Laparoscopy, diagnostic LIG/TRNSXJ FLP TUBE ABDL/VAG APPR UNI/BI Tubal ligation OVARIAN CYSTECTOMY 1990 ovarian cysts removed PAST SURGICAL HISTORY OF 1999 ORIF left ankle PAST SURGICAL HISTORY OF right middle finger surgery, staph debridment. PAST SURGICAL HISTORY OF 07/28/2013 left carpal tunnel release RECTAL EXAM UNDER ANESTHESIA 2014 REVISE MEDIAN N/CARPAL TUNNEL SURG 06/08/2014 right capral tunnel release TNOT ELBOW LATERAL/MEDIAL DEBRIDE OPEN Right 04/02/2017 Right elbow extensor tendon debridement TNOT ELBOW LATERAL/MEDIAL DEBRIDE OPEN Left 05/18/2018 Left elbow extensor tendon debridement TONSILLECTOMY PRIMARY/SECONDARY <AGE 12 Tonsillectomy ALLERGIES Amoxicillin, Codeine, Darvocet A500 [Propoxyphene N-Acetaminophen], and Sulfa (Sulfonamide Antibiotics) MEDICATIONS flash glucose scanning reader ([employer] ANA PAULA 2 READER)^1 Each once daily.^Disp: 1 Each^Rfl: 0 flash glucose sensor (FREESTYLE AN APAULA 2 SENSOR) kit^1 Each once daily.^Disp: 1 Kit^Rfl: 3 omeprazole (PRILOSEC) 20 mg capsule^Take 1 capsule by mouth daily before breakfast. 1/2 hr before meal.^Disp: 30 capsule^Rfl: 5 metoprolol tartrate, short acting, (LOPRESSOR) 25 mg tablet^Take 1 tablet by mouth twice daily.^Disp: 60 tablet^Rfl: 5 lidocaine (ANECREAM5) crea^Apply to affected area as needed.^Disp: 28 g^Rfl: 1 polyethylene glycol 3350 (MIRALAX) 17 gram/dose powder^Use 1/2-1 capful daily as needed for constipation^Disp: 116 g^Rfl: 1 naproxen (NAPROSYN) 500 mg tablet^Take 1 tablet by mouth twice daily as needed (for pain/inflammation). Take with food.^Disp: 30 tablet^Rfl: 1 diclofenac (VOLTAREN) 1 % topical gel^Apply 2 g to affected area twice daily as needed.^Disp: 50 g^Rfl: 1 hydrocortisone (ANUSOL-HC) 2.5 % rectal cream^Use as per instructions.^Disp: 28 g^Rfl: 0 nortriptyline (PAMELOR) 50 mg capsule^TAKE 1 CAPSULE BY MOUTH AT BEDTIME^Disp: 30 capsule^Rfl: 5 levothyroxine (SYNTHROID) 50 mcg tablet^TAKE 1 TABLET BY MOUTH DAILY TAKE ON EMPTY STOMACH. FOR THYROID^Disp: 30 tablet^Rfl: 5 furosemide (LASIX) 40 mg tablet^TAKE 1 TABLET BY MOUTH DAILY^Disp: 30 tablet^Rfl: 5 fluticasone (FLONASE) 50 mcg/actuation nasal spray^Use 2 Sprays in each nostril once daily. Rinse mouth after use.^Disp: 1 Each^Rfl: 11 nabumetone (RELAFEN) 500 mg tablet^Take 1 tablet by mouth twice daily.^Disp: 60 tablet^Rfl: 1 potassium chloride (K-TAB) 10 mEq tablet^Take 1 tablet by mouth daily with breakfast. Take with lasix^Disp: 90 tablet^Rfl: 3 famotidine (PEPCID) 20 mg tablet^Take 1 tablet by mouth twice daily.^Disp: 180 tablet^Rfl: 3 atorvastatin (LIPITOR) 10 mg tablet^Take 1 tablet by mouth once daily.^Disp: 90 tablet^Rfl: 3 albuterol HFA (VENTOLIN HFA) 90 mcg/actuation inhaler^Inhale 2 Puffs as instructed every 4 hours asneeded for wheezing/shortness of breath.^Disp: 18 g^Rfl: 2 ipratropium-albuterol (DUONEB) 0.5 mg-3 mg(2.5 mg base)/3 mL nebu^INHALE 3 ML INSTRUCTED EVERY 4HOURS NEEDED^Disp: 180 mL^Rfl: 2 lamoTRIgine (LAMICTAL) 100 mg tablet^100 mg. ^Disp: ^Rfl: FAMILY HISTORY Problem Relation Age of Onset Heart Mother Hypertension Father Psychiatry Father Bipolar Psychiatry Sister No Known Problems Brother No Known Problems Maternal Grandmother Cancer Maternal Grandfather Diabetes Paternal Grandmother Stroke Paternal Grandmother Great Grandmother No Known Problems Paternal Grandfather Cancer Paternal Aunt other ([place]) Paternal Aunt Great aunt Social History Tobacco Use Smoking status: Every Day Packs/day: 0.50 Types: Cigarettes Start date: 05/17/1992 Smokeless tobacco: Never Vaping Use Vaping Use: Never used Substance Use Topics Alcohol use: Yes Comment: Seldom- uses once every couple months Drug use: Not Currently Comment: marijuana h/o, 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 PHYSICAL EXAM BP 132/82 Pulse 80 Resp 16 Wt 136.1 kg (300 lb) LMP 12/15/2021 BMI 53.16 kg/m General Appearance: well appearing, in no acute distress, alert Skin: Skin color, texture, turgor normal for age; Eyes: conjunctiva pink and moist, no icterus, sclera white, non-injected Lungs: Lungs clear to auscultation. No wheezing, rhonchi, rales. Heart: RRR without murmur, gallop, or rubs. No ectopy Abdomen: Abdomen soft,. Bowel sounds normal. No masses, organomegaly, exquisite tenderness noted with palpation of LLQ which is changed from previous pain to epigastric. Does have grimacing and some guarding to LLQ. Does not have rebound pain or rigidity. Health maintenance reviewed with patient: HEPATITIS B(1 of 3 - 3-dose series) Never done PNEUMOCOCCAL(1 - PCV) Never done PAP TESTING due on 08/23/2013 HPV TESTING due on 08/23/2013 MAMMOGRAM Never done DEPRESSION ASSESSMENT Never done COLORECTAL CANCER SCREENING due on 03/02/2022 SPIROMETRY due on 07/03/2022 COVID-19 VACCINE(1) due on 07/03/2022 HBA1C due on 09/08/2022 DTAP,TDAP,TD(2 - Td or Tdap) due on 10/03/2022 LDL CHOLESTEROL due on 03/10/2023 ANNUAL PCP TEAM CHRONIC DISEASE VISIT due on 03/25/2023 BP CONTROLLED (<130/80) due on 03/25/2023 INFLUENZA Completed HIV SCREENING Completed URINE ALBUMIN:CREATININE RATIO Discontinued DILATED RETINAL EXAM Discontinued DIABETIC FOOT EXAM Discontinued HEPATITIS C SCREENING Discontinued DATA REVIEWED: Most recent labs and imaging results. ASSESSMENT/PLAN: 1. Left lower quadrant abdominal pain - ICD9: 789.04, ICD10: R10.32 (primary diagnosis) Pain now centralized and increased to LLQ, with nausea, diarrhea, and slightly increased WBC this is indicative of possible diverticulitis. If CT negative will need stool studies. - continue to hold trulicity. - started on cefdinir and flagyl - CT ABD/PEL W IVCON - CONSULT TO GASTROENTEROLOGY - UA DIP, URINE (POC) - negative 2. Nausea - ICD9: 787.02, ICD10: R11.0 As above - CONSULT TO GASTROENTEROLOGY - UA DIP, URINE (POC) 3. Diarrhea, unspecified type - ICD9: 787.91, ICD10: R19.7 See #1 - CONSULT TO GASTROENTEROLOGY Prescription instructions reviewed with patient as applicable. Potential red flag symptoms discussed with the patient. Reviewed appropriate action plan to take if red flag symptoms occur. Patient agreeable to treatment plan. Caryn Lowery APRN.CNP documented in this encounterSt. [facility]11-[facility] History of Present illness Narrative* Shazia Brand RDMS - 03/30/2022 10:45 AM EST Radiology Service Progress Note PATIENT NAME: Darren Reinoso DATE OF SERVICE: March 30, 2022 TIME: 11:07 AM PATIENT IDENTITY VERIFICATION COMPLETED USING TWO (2) IDENTIFIERS: Name and Date of confirmedby patient verbally. FALL SCREENING: Has the patient had 2 falls in the last year or 1 fall with injury or currently using an Ambulatory Assistive Device (Walker, Cane, Wheelchair, Crutches, etc.)? No PATIENT GENDER DATA: Female. status: : No status: NO. PATIENT RELEVANT IMPLANT DATA REVIEWED: Not Applicable RADIOLOGY DEPARTMENT: Ultrasound PERIPHERAL IV DATA: Not applicable SIGNED BY: Shazia Brand RDMS RVT March 30, 2022 11:07 AM documented in this encounterSt. [facility]11-[facility]22 History of Present illness Narrative* Caryn Lowery APRN.ICT SUPPORT ENGINEER - 03/25/2022 5:56 PM EST CC: Patient presents with: Recheck: Follow up, trulicity. Nausea and vomiting. HPI Darren Reinoso is a 42 year old female who presents today for nausea and GI upset since increasing the trulicity 4 weeks ago. DIABETES MELLITUS: Ms. Reinoso denies excessive thirst or increased frequency of urination, chest pain or dyspnea , numbness, tingling or pain in extremities, new or unusual visual symptoms, low sugar/hypoglycemic reactions, weight loss/gain, and lightheadedness/dizziness. Follows a diabetic diet most of the time. She is compliant with medication(s) and is tolerating med(s) without any side effects. She reports does not check her glucose as she has always declined poking her finger but was told her insurance covers Ancerae. Patient's last HgA1C was Hemoglobin A1C (%) Date Value 03/10/2022 5.6 04/24/2021 6.7 10/15/2020 6.1 Hemoglobin A1C (POCT) (%) Date Value 01/23/2022 6.1 07/03/2021 6.1 ) Has had increase in flatulence, nausea, and diarrhea since increasing the trulicity but is frustrated because she is losing weight. At first denied abdominal pain but did admit to this after exam was very tender. Admits to having abdominal pain to her upper abdomen which is worsened with large meals. No previous abdominal surgeries. Has history of reflux which was previously controlled with Pepcid. REVIEW OF SYSTEMS General: no fevers, no chills, no night sweats, no recurrent infections, no change in appetite, no change in energy, and no significant changes in weight Respiratory: no cough, no wheezing, no shortness of breath, no hemoptysis Cardiovascular: no chest pain, no chest pressure, no palpitations, and no swelling Neurologic: No headache, weakness, numbness, tingling, dizziness, memory loss, syncope. PAST MEDICAL HISTORY Diagnosis Date Adjustment disorder with depressed mood Anxiety state, unspecified Dysmenorrhea Hearing loss no aids Other and unspecified ovarian cyst Ovarian cyst RECOVERING ALCOHOL, MARIJUANA & COCAINE PAST SURGICAL HISTORY Procedure Laterality Date COLONOSCOPY FLX DX W/COLLJ SPEC WHEN PFRMD 03/02/2017 Colonoscopy INCISE FINGER TENDON SHEATH Right 2002 INCISE FINGER TENDON SHEATH Right 07/23/2021 Right thumb and middle trigger finger releases LAPS ABD PRTM&OMENTUM DX W/WO SPEC BR/WA SPX Laparoscopy, diagnostic LIG/TRNSXJ FLP TUBE ABDL/VAG APPR UNI/BI Tubal ligation OVARIAN CYSTECTOMY 1990 ovarian cysts removed PAST SURGICAL HISTORY OF 1999 ORIF left ankle PAST SURGICAL HISTORY OF right middle finger surgery, staph debridment. PAST SURGICAL HISTORY OF 07/28/2013 left carpal tunnel release RECTAL EXAM UNDER ANESTHESIA 2014 REVISE MEDIAN N/CARPAL TUNNEL SURG 06/08/2014 right capral tunnel release TNOT ELBOW LATERAL/MEDIAL DEBRIDE OPEN Right 04/02/2017 Right elbow extensor tendon debridement TNOT ELBOW LATERAL/MEDIAL DEBRIDE OPEN Left 05/18/2018 Left elbow extensor tendon debridement TONSILLECTOMY PRIMARY/SECONDARY <AGE 12 Tonsillectomy ALLERGIES Amoxicillin, Codeine, Darvocet A500 [Propoxyphene N-Acetaminophen], and Sulfa (Sulfonamide Antibiotics) MEDICATIONS metoprolol tartrate, short acting, (LOPRESSOR) 25 mg tablet^Take 1 tablet by mouth twice daily.^Disp: 60 tablet^Rfl: 5 lidocaine (ANECREAM5) crea^Apply to affected area as needed.^Disp: 28 g^Rfl: 1 polyethylene glycol 3350 (MIRALAX) 17 gram/dose powder^Use 1/2-1 capful daily as needed for constipation^Disp: 116 g^Rfl: 1 dulaglutide (TRULICITY) 1.5 mg/0.5 mL pen injector^Inject 1.5 mg subcutaneously one time a week. Inject once per week. Discard Pen After^Disp: 4 Each^Rfl: 5 naproxen (NAPROSYN) 500 mg tablet^Take 1 tablet by mouth twice daily as needed (for pain/inflammation). Take with food.^Disp: 30 tablet^Rfl: 1 diclofenac (VOLTAREN) 1 % topical gel^Apply 2 g to affected area twice daily as needed.^Disp: 50 g^Rfl: 1 hydrocortisone (ANUSOL-HC) 2.5 % rectal cream^Use as per instructions.^Disp: 28 g^Rfl: 0 nortriptyline (PAMELOR) 50 mg capsule^TAKE 1 CAPSULE BY MOUTH AT BEDTIME^Disp: 30 capsule^Rfl: 5 levothyroxine (SYNTHROID) 50 mcg tablet^TAKE 1 TABLET BY MOUTH DAILY TAKE ON EMPTY STOMACH. FOR THYROID^Disp: 30 tablet^Rfl: 5 furosemide (LASIX) 40 mg tablet^TAKE 1 TABLET BY MOUTH DAILY^Disp: 30 tablet^Rfl: 5 fluticasone (FLONASE) 50 mcg/actuation nasal spray^Use 2 Sprays in each nostril once daily. Rinse mouth after use.^Disp: 1 Each^Rfl: 11 nabumetone (RELAFEN) 500 mg tablet^Take 1 tablet by mouth twice daily.^Disp: 60 tablet^Rfl: 1 potassium chloride (K-TAB) 10 mEq tablet^Take 1 tablet by mouth daily with breakfast. Take with lasix^Disp: 90 tablet^Rfl: 3 famotidine (PEPCID) 20 mg tablet^Take 1 tablet by mouth twice daily.^Disp: 180 tablet^Rfl: 3 atorvastatin (LIPITOR) 10 mg tablet^Take 1 tablet by mouth once daily.^Disp: 90 tablet^Rfl: 3 albuterol HFA (VENTOLIN HFA) 90 mcg/actuation inhaler^Inhale 2 Puffs as instructed every 4 hours asneeded for wheezing/shortness of breath.^Disp: 18 g^Rfl: 2 ipratropium-albuterol (DUONEB) 0.5 mg-3 mg(2.5 mg base)/3 mL nebu^INHALE 3 ML INSTRUCTED EVERY 4HOURS NEEDED^Disp: 180 mL^Rfl: 2 lamoTRIgine (LAMICTAL) 100 mg tablet^100 mg. ^Disp: ^Rfl: FAMILY HISTORY Problem Relation Age of Onset Heart Mother Hypertension Father Psychiatry Father Bipolar Psychiatry Sister No Known Problems Brother No Known Problems Maternal Grandmother Cancer Maternal Grandfather Diabetes Paternal Grandmother Stroke Paternal Grandmother Great Grandmother No Known Problems Paternal Grandfather Cancer Paternal Aunt other ([place]) Paternal Aunt Great aunt Social History Tobacco Use Smoking status: Every Day Packs/day: 0.50 Types: Cigarettes Start date: 05/17/1992 Smokeless tobacco: Never Vaping Use Vaping Use: Never used Substance Use Topics Alcohol use: Yes Comment: Seldom- uses once every couple months Drug use: Not Currently Comment: marijuana h/o, 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 PHYSICAL EXAM BP 128/78 Pulse 80 Resp 16 Wt (!) 137.4 kg (303 lb) LMP 12/15/2021 BMI 53.69 kg/m General Appearance: well appearing, in no acute distress, alert Skin: Skin color, texture, turgor normal for age; Eyes: conjunctiva pink and moist, no icterus, sclera white, non-injected Lungs: Lungs clear to auscultation. No wheezing, rhonchi, rales. Heart: RRR without murmur, gallop, or rubs. No ectopy Abdomen: abdomen soft, bowel sound normal throughout. Tenderness with grimacing to palpation of RUQ, epigastric region and LUQ. No rigidity, guarding, or rebound pain. Health maintenance reviewed with patient: HEPATITIS B(1 of 3 - 3-dose series) Never done PNEUMOCOCCAL(1 - PCV) Never done BP CONTROLLED (<130/80) Never done PAP TESTING due on 08/23/2013 HPV TESTING due on 08/23/2013 MAMMOGRAM Never done DEPRESSION ASSESSMENT Never done COLORECTAL CANCER SCREENING due on 03/02/2022 SPIROMETRY due on 07/03/2022 COVID-19 VACCINE(1) due on 07/03/2022 HBA1C due on 09/08/2022 DTAP,TDAP,TD(2 - Td or Tdap) due on 10/03/2022 ANNUAL PCP TEAM CHRONIC DISEASE VISIT due on 02/20/2023 LDL CHOLESTEROL due on 03/10/2023 INFLUENZA Completed HIV SCREENING Completed URINE ALBUMIN:CREATININE RATIO Discontinued DILATED RETINAL EXAM Discontinued DIABETIC FOOT EXAM Discontinued HEPATITIS C SCREENING Discontinued DATA REVIEWED: Most recent labs ASSESSMENT/PLAN: 1. Controlled type 2 diabetes mellitus without complication, without long-term current use of insulin (HCC) - ICD9: 250.00, ICD10: E11.9 (primary diagnosis) Controlled. - BP goal of <130/80 - LDL goal of <100 - stop trulicity until lab and US resulted then will evaluate restarting at lower dose. 2. RUQ pain - ICD9: 789.01, ICD10: R10.11 - started on PPI but concern is for gallbladder versus pancreatitis. - stopping trulicity - US ABD RT UPPER QUADRANT - CBC + DIFF - COMP METABOLIC PANEL - AMYLASE BLD - LIPASE BLD 3. Nausea - ICD9: 787.02, ICD10: R11.0 As above - US ABD RT UPPER QUADRANT - COMP METABOLIC PANEL - AMYLASE BLD - LIPASE BLD 4. Epigastric pain - ICD9: 789.06, ICD10: R10.13 See #2 - US ABD RT UPPER QUADRANT - CBC + DIFF - COMP METABOLIC PANEL - AMYLASE BLD - LIPASE BLD 5. Diarrhea, unspecified type - ICD9: 787.91, ICD10: R19.7 See #2 - US ABD RT UPPER QUADRANT - CBC + DIFF - COMP METABOLIC PANEL - AMYLASE BLD - LIPASE BLD Prescription instructions reviewed with patient as applicable. Potential red flag symptoms discussed with the patient. Reviewed appropriate action plan to take if red flag symptoms occur. Patient agreeable to treatment plan. Caryn Lowery APRN.CNP documented in this encounterSt. [facility]11-04-2022 Miscellaneous Notes* Telephone Encounter - Chaparrita Paez RN - 03/20/2022 8:17 AM EDT Patient has been identified by name and date of : Yes Pharmacy phones for refill(s): Requested Prescriptions Pending Prescriptions Disp Refills metoprolol tartrate, short acting, (LOPRESSOR) 25 mg tablet 56 tablet 5 Sig: Take 1 tablet by mouth twice daily. Date of last office visit in primary care: 02/20/22 Future visit: 04/22/22 Last 2 Encounter Wt Readings: Date: Wt: 12/22/2021 138.8 kg (306 lb) 12/19/2021 139 kg (306 lb 6.4 oz) Previous labs/tests for medication: Blood Pressure: BUN (mg/dL) Date Value 03/10/2022 14 07/01/2021 10 Sodium (mmol/L) Date Value 03/10/2022 138 07/01/2021 139 Last 1 Encounter BP Readings: Date: BP: 02/20/2022 134/82 Please advise. Thank you. Chaparrita Paez RN documented in this encounterSt. Anthony'[facility]10-25-2022 Miscellaneous Notes* Telephone Encounter - Babar Phillip MD - 03/10/2022 12:58 PM EDT Noted * Telephone Encounter - Tete Gonzalez RN - 03/10/2022 11:53 AM EDT Triage Protocol Recommended: ER now. Patient states she will have family member take her. Reason for Disposition [1] Constant abdominal pain AND [2] present > 2 hours Answer Assessment - Initial Assessment Questions Patient calling with complaints of bright red blood coming from her rectum and in her last two bowel movements.Also experiencing stomach pain, back pain and intermittent nausea and dizziness. 1. APPEARANCE of BLOOD: bright red blood in toilet, mixed in stool, with clots 2. AMOUNT: Water was red, red on toilet paper 3. FREQUENCY: once this morning and once last night 4. ONSET: last night 5. DIARRHEA: no 6. CONSTIPATION: at times 7. RECURRENT SYMPTOMS: States she has never had this before 8. BLOOD THINNERS:no 9. OTHER SYMPTOMS: Pain in stomach and back currently, 6-7 pain scale, vomited 2 days ago, nausea at times, intermittent dizziness, denies fever, but feeling colder Protocols used: Rectal [id number]-[id number]-GA documented in this encounterSt. Anthony'[facility]10-07-2022 History of Present illness Narrative* Caryn Lowery APRN.JACINTA - 02/20/2022 1:23 PM EDT CC: Patient presents with: Recheck: 4 week follow up HPI Darren Reinoso is a 42 year old female who presents today for 4 week follow up starting mounjaro. Insurance would not approve mounjaro so trulicity was ordered. Patient had been tolerating injection well. Did vomit one time when she ate too much but has not occurred again. Has started with hard stools since starting trulicity, but at last visit was also taken off of metformin because of the sever diarrhea it was causing. Is having a daily BM but states it feels like a brick Denies any abdominalpain, nausea, or vomiting. At last visit was requesting anusol for hemrrhoid pain, but was incorrect and states it was lidocaine ointment 5% once daily as needed for rectal pain. Brought empty tube with her. DIABETES MELLITUS: Ms. Reinoso denies excessive thirst or increased frequency of urination, chest pain or dyspnea , numbness, tingling or pain in extremities, new or unusual visual symptoms, low sugar/hypoglycemic reactions, weight loss/gain, lightheadedness/dizziness, and bowel changes/loose stools.Follows a diabetic diet some of the time. She is compliant with medication(s) and is tolerating med(s) without any side effects. She reports checking her glucose on a infrequent to not at all basis schedule. Patient's last HgA1C was Hemoglobin A1C (%) Date Value 04/24/2021 6.7 10/15/2020 6.1 Hemoglobin A1C (POCT) (%) Date Value 01/23/2022 6.1 07/03/2021 6.1 ) REVIEW OF SYSTEMS General: no fevers, no chills, no night sweats, no recurrent infections, no change in appetite, no change in energy, and no significant changes in weight Respiratory: no cough, no wheezing, no shortness of breath, no hemoptysis Cardiovascular: no chest pain, no chest pressure, no palpitations, and no swelling GI: No nausea, vomiting, or diarrhea Endocrine: no fatigue, no polyuria, no polyphagia, and no polydipsia Neurologic: No headache, weakness, numbness, tingling, dizziness, syncope. PAST MEDICAL HISTORY Diagnosis Date Adjustment disorder with depressed mood Anxiety state, unspecified Dysmenorrhea Hearing loss no aids Other and unspecified ovarian cyst Ovarian cyst RECOVERING ALCOHOL, MARIJUANA & COCAINE PAST SURGICAL HISTORY Procedure Laterality Date COLONOSCOPY FLX DX W/COLLJ SPEC WHEN PFRMD 03/02/2017 Colonoscopy INCISE FINGER TENDON SHEATH Right 2002 INCISE FINGER TENDON SHEATH Right 07/23/2021 Right thumb and middle trigger finger releases LAPS ABD PRTM&OMENTUM DX W/WO SPEC BR/WA SPX Laparoscopy, diagnostic LIG/TRNSXJ FLP TUBE ABDL/VAG APPR UNI/BI Tubal ligation OVARIAN CYSTECTOMY 1990 ovarian cysts removed PAST SURGICAL HISTORY OF 1999 ORIF left ankle PAST SURGICAL HISTORY OF right middle finger surgery, staph debridment. PAST SURGICAL HISTORY OF 07/28/2013 left carpal tunnel release RECTAL EXAM UNDER ANESTHESIA 2014 REVISE MEDIAN N/CARPAL TUNNEL SURG 06/08/2014 right capral tunnel release TNOT ELBOW LATERAL/MEDIAL DEBRIDE OPEN Right 04/02/2017 Right elbow extensor tendon debridement TNOT ELBOW LATERAL/MEDIAL DEBRIDE OPEN Left 05/18/2018 Left elbow extensor tendon debridement TONSILLECTOMY PRIMARY/SECONDARY <AGE 12 Tonsillectomy ALLERGIES Amoxicillin, Codeine, Darvocet A500 [Propoxyphene N-Acetaminophen], and Sulfa (Sulfonamide Antibiotics) MEDICATIONS dulaglutide (TRULICITY) 0.75 mg/0.5 mL pen injector^Inject 0.75 mg subcutaneously one time a week. Inject dose once per week. Discard Pen After^Disp: 4 Each^Rfl: 1 naproxen (NAPROSYN) 500 mg tablet^Take 1 tablet by mouth twice daily as needed (for pain/inflammation). Take with food.^Disp: 30 tablet^Rfl: 1 diclofenac (VOLTAREN) 1 % topical gel^Apply 2 g to affected area twice daily as needed.^Disp: 50 g^Rfl: 1 hydrocortisone (ANUSOL-HC) 2.5 % rectal cream^Use as per instructions.^Disp: 28 g^Rfl: 0 nortriptyline (PAMELOR) 50 mg capsule^TAKE 1 CAPSULE BY MOUTH AT BEDTIME^Disp: 30 capsule^Rfl: 5 levothyroxine (SYNTHROID) 50 mcg tablet^TAKE 1 TABLET BY MOUTH DAILY TAKE ON EMPTY STOMACH. FOR THYROID^Disp: 30 tablet^Rfl: 5 furosemide (LASIX) 40 mg tablet^TAKE 1 TABLET BY MOUTH DAILY^Disp: 30 tablet^Rfl: 5 metoprolol tartrate, short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 breath. ipratropium-albuterol (DUONEB) 0.5 mg-3 mg(2.5 mg base)/3 mL nebu INHALE 3 ML INSTRUCTED EVERY 4HOURS NEEDED lamoTRIgine (LAMICTAL) 100 mg tablet 100 mg. FAMILY HISTORY Problem Relation Age of Onset Heart Mother Hypertension Father Psychiatry Father Bipolar Psychiatry Sister No Known Problems Brother No Known Problems Maternal Grandmother Cancer Maternal Grandfather Diabetes Paternal Grandmother Stroke Paternal Grandmother Great Grandmother No Known Problems Paternal Grandfather Cancer Paternal Aunt other ([place]) Paternal Aunt Great aunt Social History Tobacco Use Smoking status: Current Every Day Smoker Packs/day: 0.50 Types: Cigarettes Start date: 05/17/1992 Smokeless tobacco: Never Used Vaping Use Vaping Use: Never used Substance Use Topics Alcohol use: Yes Comment: Seldom- uses once every couple months Drug use: Not Currently Comment: marijuana h/o, 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 PHYSICAL EXAM LMP 05/23/2021 (Exact Date) General Appearance: well appearing, in no acute distress, alert Skin: Skin color, texture, turgor normal for age; Multiple skin tags and areas where skin tags have been pulled off. Abrasion below chin that is scabbed and healing. Slight irritation at skin tag areas of skin tags that had been frozen and pulled off, but no drainage, edema, or red streaking Eyes: conjunctiva pink and moist, no icterus, sclera white, non-injected Lungs: Lungs clear to auscultation. No wheezing, rhonchi, rales. Heart: RRR without murmur, gallop, or rubs. No ectopy Extremities: No deformities, edema, skin discoloration, clubbing or cyanosis. Good capillary refill. Health maintenance reviewed with patient: PNEUMOCOCCAL(1 - PCV) Never done HEPATITIS B(1 of 3 - Risk 3-dose series) Never done PAP TESTING due on 08/23/2013 HPV TESTING due on 08/23/2013 MAMMOGRAM Never done SPIROMETRY due on 07/03/2022 COVID-19 VACCINE(1) due on 07/03/2022 DEPRESSION SCREENING due on 11/11/2021 HBA1C due on 12/31/2021 INFLUENZA(Season Ended) due on 01/15/2022 COLORECTAL CANCER SCREENING due on 03/02/2022 ANNUAL PCP TEAM CHRONIC DISEASE VISIT due on 07/03/2022 BP CONTROLLED (<130/80) due on 07/16/2022 DTAP,TDAP,TD(2 - Td or Tdap) due on 10/03/2022 LDL CHOLESTEROL due on 10/09/2022 HIV SCREENING Completed URINE ALBUMIN:CREATININE RATIO Discontinued DILATED RETINAL EXAM Discontinued DIABETIC FOOT EXAM Discontinued HEPATITIS C SCREENING Discontinued DATA REVIEWED: No new labs ASSESSMENT/PLAN: 1. Bilateral lower extremity edema - ICD9: 782.3, ICD10: R60.0 (primary diagnosis) - resolved at this time, patient wanting to know if she can increase her lasix dose on days she is swollen, discussed an extra 1/2 tab on rare occasions would be ok, but if going to use weekly or more often, would need to update prescription and check kidney function - need to wear compression stockings and elevate feet throughout the day - if stockings are uncomfortable you can use brad warps starting at your feet and wrapping up. - follow up for any increased edema, shortness of breath or any other concerns. - follow up in 6 months. 2. Skin tags, multiple acquired - ICD9: 701.9, ICD10: L91.8 - recommend dermatology, stop pulling off skin tags - too numerous to feel comfortable tieing them off in office. - if scabbed areas open up it is ok to apply a small amount of neosporin Prescription instructions reviewed with patient as applicable. Potential red flag symptoms discussed with the patient. Reviewed appropriate action plan to take if red flag symptoms occur. Patient agreeable to treatment plan. Caryn Lowery APRN.CNP documented in this encounterSt. Anthony'[facility]05-17-2022 Miscellaneous Notes* Telephone Encounter - Shira Chang LPN - 09/30/2021 3:34 PM EDT Erik calling for refill. ALONSO: 07/03/21. No outstanding labs NOV: 10/20/21 Last Refill: 04/08/21 #[id number] refills Shira Chang LPN documented in this encounterSt. Anthony'S Hospital05-16-2022 Miscellaneous Notes* Telephone Encounter - Caryn Lowery APRN.CNP - 09/29/2021 8:55 AM EDT Patient had normal Echocardiogram less than one year ago. No need to repeat at this time. Thank you Caryn Lowery APRN.CNP * Telephone Encounter - Beckie Suh - 09/25/2021 3:12 PM EDT .1st failed attempt to contact patient. Left message to return call to schedule her Echo that was cancelled back in 2021 Beckie Suh PSS * Telephone Encounter - Katie Moon Ma - 09/24/2021 4:18 PM EDT Patient notified. Please assist patient in scheduling ECHO * Telephone Encounter - Caryn Lowery APRN.CNP - 09/24/2021 3:46 PM EDT Please tell patient to wear the compression hose and get the echo done prior to appointment. If swelling worsens, legs become red, or shortness of breath she needs evaluated prior to 10/17. * Telephone Encounter - Katie Moon Ma - 09/24/2021 11:14 AM EDT First available appointment is 10/17, ok to wait until that date? Please advise. * Telephone Encounter - Caryn Lowery APRN.CNP - 09/24/2021 10:00 AM EDT Stockings ordered. Please let patient know to not increase lasix dose until she has an appointment with me. Thank you Caryn Lowery APRN.CNP * Telephone Encounter - Marita Gonzalez RN - 09/24/2021 9:51 AM EDT Patient called and provider message reviewed. Patient is taking furosemide 40 mg with no missed doses. Patient reports that she needs a new pair of compression hose that fit right. Patient is agreeable to increase in lasix and willing to come in for labs and blood pressure check. Offered to transfer to have echo scheduled. Patient declined at this time. Pended order for compression stockings. Marita Gonzalez RN * Telephone Encounter - Caryn Lowery APRN.CNP - 09/24/2021 9:13 AM EDT Is patient taking her Lasix at 40mg as prescribed? Patient needs to be wearing compression socks during the day to help decrease this and get echocardiogram completed as previously ordered. We could increase her lasix, but I would want her to come in prior to evaluate her blood pressure and kidney/potassium function. Thank you Caryn Lowery APRN.JACINTA * Telephone Encounter - Marita Gonzalez RN - 09/23/2021 3:46 PM EDT Patient calls to report that lower leg edema is flaring back up. She reports bilateral leg edema below the knees with the left leg bigger. Patient reports slight pitting bilaterally with pink/rednessto both legs. Patient seen in May for bilateral edema and reports it to be unchanged but with the hot months coming it is going to get worse. Continues to decline BECKY hose, brad wraps, and diabetic socks unless she absolutely has to. She reports she is working on diet and eating less sodium and fat. Continues to smoke and is on her legs frequently d/t babysitting. Echo not completed from 04/24/2021. Denies chest pain, increase in SOB, edema anywhere else besides below the knees, chest palpitations, or fever. Patient reports SOB is her usual with activity. Patient reports left knee pain which shegoes to Dr. Blunt for but he currently won't perform the necessary surgery d/t patient needs to quit smoking and loose weight. Patient requests Caryn valdivia because she has evaluated her legs most recently. Please review and advise, Marita Gonzalez RN documented in this encounterSt. Anthony'S Hospital05-11-2022 Miscellaneous Notes* Telephone Encounter - Marita Gonzalez RN - 09/24/2021 10:43 AM EDT Patient has been identified by name and date of : Yes Patient phones for refill(s): Pending Prescriptions Disp Refills FLUTICASONE PROPIONATE 50 MCG/ACTUATION NASAL SPRAY,SUSPENSION 1 Each 11 Sig: Use 2 Sprays in each nostril once daily. Rinse mouth after use. CHELSIE: No Date of last office visit with pcp: 07/03/2021 Future appt: none Last 2 Encounter Wt Readings: Date: Wt: 07/16/2021 142.4 kg (314 lb) 07/03/2021 144.7 kg (319 lb) Previous labs/tests for medication: Blood Pressure: BUN (mg/dL) Date Value 07/01/2021 10 Sodium (mmol/L) Date Value 07/01/2021 139 Last 1 Encounter BP Readings: Date: BP: 07/23/2021 96/50 Liver Function: ALT (U/L) Date Value 04/24/2021 27 AST (U/L) Date Value 04/24/2021 17 Please advise. Thank you. Marita Gonzalez RN documented in this encounterSt. Anthony'S Hospital03-21-2022 History of Present illness Narrative* Duran Blunt MD - 08/04/2021 2:52 PM EDT Duran Blunt MD Department of Orthopaedics Orthopaedics [address] [facility] [address] Dept: [phone] Dept August 04, 2021 CHIEF COMPLAINT: Post Op of the Right Thumb, Post Op of the Right Middle Finger, and 1 week post opright thumb and middle trigger finger release. HPI Patient arrives in office with dressing on hand from surgery. Dressing removed. Patient tolerated well. Sutures intact. No redness or drainage. She does have some swelling in her fingers. Taking Tylenol for the pain. Patient requesting physician to remove sutures today. AMB ROOMING INTAKE FLOWSHEET DATA Risk Screening Do you have concerns about personal safety or safety in the home?: No Pain Pain Level: (Right middle finger 5-6, Right thumb -2) Pain Location: (Right thumb and right middle trigger finger) Description: Stiffness (stinging) Duration Amount of Time: (Post op) Frequency: Continuous Intervention/Comfort measure: Medication ASSESSMENT: M65.311 Trigger thumb of right hand (primary encounter diagnosis) M65.331 Trigger middle finger of right hand SUMMARY/PLAN: Patient is about a week after surgery. Things look well. We will get her stitches out today. Mild and appropriate stiffness in the fingers. Exam: Intact sutures. No redness or drainage. Good range of motion despite some stiffness. No locking or catching of either digit. Supporting Information Below: Medications: Current Outpatient Medications Medication Sig nortriptyline (PAMELOR) 50 mg capsule Take 1 capsule by mouth daily at bedtime. furosemide (LASIX) 40 mg tablet Take 1 tablet by mouth once daily. levothyroxine (LEVOXYL) 50 mcg tablet Take 1 tablet by mouth once daily. Take on empty stomach. ForThyroid nabumetone (RELAFEN) 500 mg tablet Take 1 tablet by mouth twice daily. potassium chloride (K-TAB) 10 mEq tablet Take 1 tablet by mouth daily with breakfast. Take with lasix famotidine (PEPCID) 20 mg tablet Take 1 tablet by mouth twice daily. atorvastatin (LIPITOR) 10 mg tablet Take 1 tablet by mouth once daily. metFORMIN ER (GLUCOPHAGE XR) 500 mg 24 hr tablet Take 1 tablet by mouth daily with breakfast. metoprolol tartrate, short acting, (LOPRESSOR) 25 mg tablet Take 1 tablet by mouth twice daily. albuterol HFA (VENTOLIN HFA) 90 mcg/actuation inhaler Inhale 2 Puffs as instructed every 4 hours asneeded for wheezing/shortness of breath. fluticasone (FLONASE) 50 mcg/actuation nasal spray Use 2 Sprays in each nostril once daily. Rinse mouth after use. ipratropium-albuterol (DUONEB) 0.5 mg-3 mg(2.5 mg base)/3 mL nebu INHALE 3 ML INSTRUCTED EVERY 4HOURS NEEDED lamoTRIgine (LAMICTAL) 100 mg tablet 100 mg. Current Facility-Administered Medications Medication Dose Route Frequency perflutren lipid microspheres 1.3 mL in NaCl (PF) 0.9% 10 mL injection (DEFINITY) INTRAVENOUS DIRECTED PRN sodium chloride 0.9 % (flush) 10 mL (BD POSIFLUSH) 10 mL INTRAVENOUS DIRECTED PRN perflutren lipid microspheres 1.3 mL in NaCl (PF) 0.9% 10 mL injection (DEFINITY) INTRAVENOUS DIRECTED PRN sodium chloride 0.9 % (flush) 10 mL (BD POSIFLUSH) 10 mL INTRAVENOUS DIRECTED PRN Allergies: Amoxicillin, Codeine, Darvocet A500 [Propoxyphene N-Acetaminophen], and Sulfa (Sulfonamide Antibiotics) Duran Blunt MD documented in this encounterSt. Anthony'S Hospital12-09-2021 History of Present illness Narrative* Brittney Trent RT(R) - 04/24/2021 11:50 AM EST Radiology Service Progress Note PATIENT NAME: Darren Reinoso DATE OF SERVICE: April 24, 2021 TIME: 11:48 AM PATIENT IDENTITY VERIFICATION COMPLETED USING TWO (2) IDENTIFIERS: Name and Date of confirmedby patient verbally. FALL SCREENING: Has the patient had 2 falls in the last year or 1 fall with injury or currently using an Ambulatory Assistive Device (Walker, Cane, Wheelchair, Crutches, etc.)? No PATIENT GENDER DATA: Female. status: : No status: NO. PATIENT RELEVANT IMPLANT DATA REVIEWED: Yes RADIOLOGY DEPARTMENT: General X-ray: Exam(s) Completed: Chest X-Ray PERIPHERAL IV DATA: Not applicable SIGNED BY: RT Bob(R) April 24, 2021 11:48 AM documented in this encounterSt. Anthony'S Hospital10-27-2021 History of Present illness Narrative* Ana Gunderson RT(R) - 03/12/2021 2:30 PM EDT Radiology Service Progress Note PATIENT NAME: Darren Reinoso DATE OF SERVICE: March 12, 2021 TIME: 2:21 PM PATIENT IDENTITY VERIFICATION COMPLETED USING TWO (2) IDENTIFIERS: Name and Date of confirmedby patient verbally. FALL SCREENING: Has the patient had 2 falls in the last year or 1 fall with injury or currently using an Ambulatory Assistive Device (Walker, Cane, Wheelchair, Crutches, etc.)? No PATIENT GENDER DATA: Female. status: : No status: NO. PATIENT RELEVANT IMPLANT DATA REVIEWED: Not Applicable RADIOLOGY DEPARTMENT: General X-ray: Exam(s) Completed: Chest X-Ray PERIPHERAL IV DATA: Not applicable SIGNED BY: RT Luis(R) March 12, 2021 2:21 PM documented in this encounterSt. Anthony'S Hospital09-10-2021 History of Present illness Narrative* Brittney Trent RT(R) - 01/24/2021 3:40 PM EDT Radiology Service Progress Note PATIENT NAME: Darren Reinoso DATE OF SERVICE: January 24, 2021 TIME: 3:50 PM PATIENT IDENTITY VERIFICATION COMPLETED USING TWO (2) IDENTIFIERS: Name and Date of confirmedby patient verbally. FALL SCREENING: Has the patient had 2 falls in the last year or 1 fall with injury or currently using an Ambulatory Assistive Device (Walker, Cane, Wheelchair, Crutches, etc.)? No PATIENT GENDER DATA: Female. status: : No status: NO. PATIENT RELEVANT IMPLANT DATA REVIEWED: Yes RADIOLOGY DEPARTMENT: General X-ray: Exam(s) Completed: Chest X-Ray PERIPHERAL IV DATA: Not applicable SIGNED BY: RT Bob(R) January 24, 2021 3:50 PM documented in this encounterSt. Anthony'S Hospital07-27-2021 NoteHNO ID: [id number] Author: RT Jennifer(R) Service: Radiology Author Type: Pulley Maintainer Type: Progress Notes Filed: 12/10/2020 6:45 PM Note Text: RADIOLOGY SERVICE PROGRESS NOTE DATE OF SERVICE: December 10, 2020 TIME OF SERVICE: 1844 EVENT: EXAM/PROCEDURE NOT COMPLETED - Patient became claustrophobic, reaction was: Severe. ADDITIONAL EVENT DETAILS: pt refused to get MRI done due to claustrophobia and Yu not having and open MRI, requesting an open MRI. Instructed to call doctor for meds and reschedule the MRI SIGNATURE: RT Jennifer(R) PATIENT NAME: Darren Reinoso DATE: December 10, 2020 TIME: 6:44 PM PAGER/CONTACT #: Radiology Service Progress Note PATIENT NAME: Darren Reinoso DATE OF SERVICE: December 10, 2020 TIME: 6:31 PM PATIENT IDENTITY VERIFICATION COMPLETED USING TWO (2) IDENTIFIERS: Name and Date of confirmed by patient verbally and Name and Date of confirmed by identification band. FALL SCREENING: Has the patient had 2 falls in the last year or 1 fall with injury or currently using an Ambulatory Assistive Device (Walker, Cane, Wheelchair, Crutches, etc.)? No PATIENT GENDER DATA: Female. status: : No status: NO. PATIENT RELEVANT IMPLANT DATA REVIEWED: Yes RADIOLOGY DEPARTMENT: MR; Exam(s) Completed: Spine: Cervical spine and Lumbar spine PERIPHERAL IV DATA: Not applicable SIGNED BY: RT Jennifer(R) December 10, 2020 6:31 [id number] History of Present illness Narrative* Ana Gunderson RT(R) - 11/12/2020 11:10 AM EDT Radiology Service Progress Note PATIENT NAME: Darren Reinoso DATE OF SERVICE: November 12, 2020 TIME: 11:20 AM PATIENT IDENTITY VERIFICATION COMPLETED USING TWO (2) IDENTIFIERS: Name and Date of confirmedby patient verbally. FALL SCREENING: Has the patient had 2 falls in the last year or 1 fall with injury or currently using an Ambulatory Assistive Device (Walker, Cane, Wheelchair, Crutches, etc.)? No PATIENT GENDER DATA: Female. status: : No status: NO. PATIENT RELEVANT IMPLANT DATA REVIEWED: Not Applicable RADIOLOGY DEPARTMENT: General X-ray: Exam(s) Completed: Chest X-Ray PERIPHERAL IV DATA: Not applicable SIGNED BY: RT Luis(R) November 12, 2020 11:20 AM [facility] History of Past illness Narrative* Problem Noted Date Resolved Date Epicondylitis, lateral, left 02/23/2018 Overview: Added automatically from request for surgery [id number] Controlled type 2 diabetes m ellitus without complication, without long-term current use of insulin 12/13/2017 06/29/2018 Right elbow pain 03/11/2017 11/02/2019 Overview: Added automatically from request for surgery [id number] Right lateral epicondylitis 03/11/201710/15 Overview: Added automatically from request for surgery [id number] Rectal bleeding 02/25/2017 11/02/2019 Overview: Added automatically from request for surgery [id number] Elbow pain, right 12/17/2016 11/02/2019 Overview: Has severe elbow pain, she is seeing Dr. 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 of Past illness Narrative* Problem Noted Date Resolved Date Epicondylitis, lateral, left 02/23/2018 Overview: Added automatically from request for surgery [id number] Controlled type 2 diabetes m ellitus without complication, without long-term current use of insulin 12/13/2017 06/29/2018 Right elbow pain 03/11/2017 11/02/2019 Overview: Added automatically from request for surgery [id number] Right lateral epicondylitis 03/11/201710/15 Overview: Added automatically from request for surgery [id number] Rectal bleeding 02/25/2017 11/02/2019 Overview: Added automatically from request for surgery [id number] Elbow pain, right 12/17/2016 11/02/2019 Overview: Has severe elbow pain, she is seeing Dr. 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 of Past illness Narrative* Problem Noted Date Resolved Date Epicondylitis, lateral, left 02/23/2018 Overview: Added automatically from request for surgery [id number] Controlled type 2 diabetes m ellitus without complication, without long-term current use of insulin 12/13/2017 06/29/2018 Right elbow pain 03/11/2017 11/02/2019 Overview: Added automatically from request for surgery [id number] Right lateral epicondylitis 03/11/201710/15 Overview: Added automatically from request for surgery [id number] Rectal bleeding 02/25/2017 11/02/2019 Overview: Added automatically from request for surgery [id number] Elbow pain, right 12/17/2016 11/02/2019 Overview: Has severe elbow pain, she is seeing Dr. 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 illness Narrative* Problem Noted Date Resolved Date Epicondylitis, lateral, left 02/23/2018 Overview: Added automatically from request for surgery [id number] Controlled type 2 diabetes m ellitus without complication, without long-term current use of insulin 12/13/2017 06/29/2018 Right elbow pain 03/11/2017 11/02/2019 Overview: Added automatically from request for surgery [id number] Right lateral epicondylitis 03/11/201710/15 Overview: Added automatically from request for surgery [id number] Rectal bleeding 02/25/2017 11/02/2019 Overview: Added automatically from request for surgery [id number] Elbow pain, right 12/17/2016 11/02/2019 Overview: Has severe elbow pain, she is seeing Dr. 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 illness Narrative* Problem Noted Date Resolved Date Epicondylitis, lateral, left 02/23/2018 Overview: Added automatically from request for surgery [id number] Controlled type 2 diabetes m ellitus without complication, without long-term current use of insulin 12/13/2017 06/29/2018 Right elbow pain 03/11/2017 11/02/2019 Overview: Added automatically from request for surgery [id number] Right lateral epicondylitis 03/11/201710/15 Overview: Added automatically from request for surgery [id number] Rectal bleeding 02/25/2017 11/02/2019 Overview: Added automatically from request for surgery [id number] Elbow pain, right 12/17/2016 11/02/2019 Overview: Has severe elbow pain, she is seeing Dr. 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 illness Narrative* Problem Noted Date Resolved Date Epicondylitis, lateral, left 02/23/2018 Overview: Added automatically from request for surgery [id number] Controlled type 2 diabetes m ellitus without complication, without long-term current use of insulin 12/13/2017 06/29/2018 Right elbow pain 03/11/2017 11/02/2019 Overview: Added automatically from request for surgery [id number] Right lateral epicondylitis 03/11/201710/15 Overview: Added automatically from request for surgery [id number] Rectal bleeding 02/25/2017 11/02/2019 Overview: Added automatically from request for surgery [id number] Elbow pain, right 12/17/2016 11/02/2019 Overview: Has severe elbow pain, she is seeing Dr. 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 of [facility] illness Narrative* Problem Noted Date Resolved Date Epicondylitis, lateral, left 02/23/2018 Overview: Added automatically from request for surgery [id number] Controlled type 2 diabetes m ellitus without complication, without long-term current use of insulin 12/13/2017 06/29/2018 Right elbow pain 03/11/2017 11/02/2019 Overview: Added automatically from request for surgery [id number] Right lateral epicondylitis 03/11/201710/15 Overview: Added automatically from request for surgery [id number] Rectal bleeding 02/25/2017 11/02/2019 Overview: Added automatically from request for surgery [id number] Elbow pain, right 12/17/2016 11/02/2019 Overview: Has severe elbow pain, she is seeing Dr. 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 illness Narrative* Problem Noted Date Resolved Date Epicondylitis, lateral, left 02/23/2018 Overview: Added automatically from request for surgery [id number] Controlled type 2 diabetes m ellitus without complication, without long-term current use of insulin 12/13/2017 06/29/2018 Right elbow pain 03/11/2017 11/02/2019 Overview: Added automatically from request for surgery [id number] Right lateral epicondylitis 03/11/201710/15 Overview: Added automatically from request for surgery [id number] Rectal bleeding 02/25/2017 11/02/2019 Overview: Added automatically from request for surgery [id number] Elbow pain, right 12/17/2016 11/02/2019 Overview: Has severe elbow pain, she is seeing Dr. 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 illness Narrative* Problem Noted Date Resolved Date Epicondylitis, lateral, left 02/23/2018 Overview: Added automatically from request for surgery [id number] Controlled type 2 diabetes m rubinaitus without complication, without long-term current use of insulin 12/13/2017 06/29/2018 Right elbow pain 03/11/2017 11/02/2019 Overview: Added automatically from request for surgery [id number] Right lateral epicondylitis 03/11/201710/15 Overview: Added automatically from request for surgery [id number] Rectal bleeding 02/25/2017 11/02/2019 Overview: Added automatically from request for surgery [id number] Elbow pain, right 12/17/2016 11/02/2019 Overview: Has severe elbow pain, she is seeing Dr. 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 Narrative* Problem Noted Date Resolved Date Epicondylitis, lateral, left 02/23/2018 Overview: Added automatically from request for surgery [id number] Controlled type 2 diabetes m brenden without complication, without long-term current use of insulin 12/13/2017 06/29/2018 Right elbow pain 03/11/2017 11/02/2019 Overview: Added automatically from request for surgery [id number] Right lateral epicondylitis 03/11/201710/15 Overview: Added automatically from request for surgery [id number] Rectal bleeding 02/25/2017 11/02/2019 Overview: Added automatically from request for surgery [id number] Elbow pain, right 12/17/2016 11/02/2019 Overview: Has severe elbow pain, she is seeing Dr. 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 Narrative* Problem Noted Date Resolved Date Epicondylitis, lateral, left 02/23/2018 Overview: Added automatically from request for surgery [id number] Controlled type 2 diabetes m ellitus without complication, without long-term current use of insulin 12/13/2017 06/29/2018 Right elbow pain 03/11/2017 11/02/2019 Overview: Added automatically from request for surgery [id number] Right lateral epicondylitis 03/11/201710/15 Overview: Added automatically from request for surgery [id number] Rectal bleeding 02/25/2017 11/02/2019 Overview: Added automatically from request for surgery [id number] Elbow pain, right 12/17/2016 11/02/2019 Overview: Has severe elbow pain, she is seeing Dr. 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 Narrative* Problem Noted Date Resolved Date Epicondylitis, lateral, left 02/23/2018 Overview: Added automatically from request for surgery [id number] Controlled type 2 diabetes m ellitus without complication, without long-term current use of insulin 12/13/2017 06/29/2018 Right elbow pain 03/11/2017 11/02/2019 Overview: Added automatically from request for surgery [id number] Right lateral epicondylitis 03/11/201710/15 Overview: Added automatically from request for surgery [id number] Rectal bleeding 02/25/2017 11/02/2019 Overview: Added automatically from request for surgery [id number] Elbow pain, right 12/17/2016 11/02/2019 Overview: Has severe elbow pain, she is seeing Dr. 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 Narrative* Problem Noted Date Resolved Date Epicondylitis, lateral, left 02/23/2018 Overview: Added automatically from request for surgery [id number] Controlled type 2 diabetes m ellitus without complication, without long-term current use of insulin 12/13/2017 06/29/2018 Right elbow pain 03/11/2017 11/02/2019 Overview: Added automatically from request for surgery [id number] Right lateral epicondylitis 03/11/201710/15 Overview: Added automatically from request for surgery [id number] Rectal bleeding 02/25/2017 11/02/2019 Overview: Added automatically from request for surgery [id number] Elbow pain, right 12/17/2016 11/02/2019 Overview: Has severe elbow pain, she is seeing Dr. 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 Narrative* Problem Noted Date Resolved Date Epicondylitis, lateral, left 02/23/2018 Overview: Added automatically from request for surgery [id number] Controlled type 2 diabetes m ellitus without complication, without long-term current use of insulin 12/13/2017 06/29/2018 Right elbow pain 03/11/2017 11/02/2019 Overview: Added automatically from request for surgery [id number] Right lateral epicondylitis 03/11/201710/15 Overview: Added automatically from request for surgery [id number] Rectal bleeding 02/25/2017 11/02/2019 Overview: Added automatically from request for surgery [id number] Elbow pain, right 12/17/2016 11/02/2019 Overview: Has severe elbow pain, she is seeing Dr. 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 Narrative* Problem Noted Date Resolved Date Epicondylitis, lateral, left 02/23/2018 Overview: Added automatically from request for surgery [id number] Controlled type 2 diabetes m rubinaitus without complication, without long-term current use of insulin 12/13/2017 06/29/2018 Right elbow pain 03/11/2017 11/02/2019 Overview: Added automatically from request for surgery [id number] Right lateral epicondylitis 03/11/201710/15 Overview: Added automatically from request for surgery [id number] Rectal bleeding 02/25/2017 11/02/2019 Overview: Added automatically from request for surgery [id number] Elbow pain, right 12/17/2016 11/02/2019 Overview: Has severe elbow pain, she is seeing Dr. 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 Narrative* Problem Noted Date Resolved Date Epicondylitis, lateral, left 02/23/2018 Overview: Added automatically from request for surgery [id number] Controlled type 2 diabetes m brenden without complication, without long-term current use of insulin 12/13/2017 06/29/2018 Right elbow pain 03/11/2017 11/02/2019 Overview: Added automatically from request for surgery [id number] Right lateral epicondylitis 03/11/201710/15 Overview: Added automatically from request for surgery [id number] Rectal bleeding 02/25/2017 11/02/2019 Overview: Added automatically from request for surgery [id number] Elbow pain, right 12/17/2016 11/02/2019 Overview: Has severe elbow pain, she is seeing Dr. 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 illness Narrative* Problem Noted Date Resolved Date Epicondylitis, lateral, left 02/23/2018 Overview: Added automatically from request for surgery [id number] Controlled type 2 diabetes m ellitus without complication, without long-term current use of insulin 12/13/2017 06/29/2018 Right elbow pain 03/11/2017 11/02/2019 Overview: Added automatically from request for surgery [id number] Right lateral epicondylitis 03/11/201710/15 Overview: Added automatically from request for surgery [id number] Rectal bleeding 02/25/2017 11/02/2019 Overview: Added automatically from request for surgery [id number] Elbow pain, right 12/17/2016 11/02/2019 Overview: Has severe elbow pain, she is seeing Dr. 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 Narrative* Problem Noted Date Resolved Date Epicondylitis, lateral, left 02/23/2018 Overview: Added automatically from request for surgery [id number] Controlled type 2 diabetes m ellitus without complication, without long-term current use of insulin 12/13/2017 06/29/2018 Right elbow pain 03/11/2017 11/02/2019 Overview: Added automatically from request for surgery [id number] Right lateral epicondylitis 03/11/201710/15 Overview: Added automatically from request for surgery [id number] Rectal bleeding 02/25/2017 11/02/2019 Overview: Added automatically from request for surgery [id number] Elbow pain, right 12/17/2016 11/02/2019 Overview: Has severe elbow pain, she is seeing Dr. 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10-[facility] History of Past illness Narrative* Problem Noted Date Resolved Date Epicondylitis, lateral, left 02/23/2018 Overview: Added automatically from request for surgery [id number] Controlled type 2 diabetes m ellitus without complication, without long-term current use of insulin 12/13/2017 06/29/2018 Right elbow pain 03/11/2017 11/02/2019 Overview: Added automatically from request for surgery [id number] Right lateral epicondylitis 03/11/201710/15 Overview: Added automatically from request for surgery [id number] Rectal bleeding 02/25/2017 11/02/2019 Overview: Added automatically from request for surgery [id number] Elbow pain, right 12/17/2016 11/02/2019 Overview: Has severe elbow pain, she is seeing Dr. 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 History of Past illness Narrative* Problem Noted Date Resolved Date Epicondylitis, lateral, left 02/23/2018 Overview: Added automatically from request for surgery [id number] Controlled type 2 diabetes m ellitus without complication, without long-term current use of insulin 12/13/2017 06/29/2018 Right elbow pain 03/11/2017 11/02/2019 Overview: Added automatically from request for surgery [id number] Right lateral epicondylitis 03/11/201710/15 Overview: Added automatically from request for surgery [id number] Rectal bleeding 02/25/2017 11/02/2019 Overview: Added automatically from request for surgery [id number] Elbow pain, right 12/17/2016 11/02/2019 Overview: Has severe elbow pain, she is seeing Dr. 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 History of Past illness Narrative* Problem Noted Date Resolved Date Epicondylitis, lateral, left 02/23/2018 Overview: Added automatically from request for surgery [id number] Controlled type 2 diabetes m ellitus without complication, without long-term current use of insulin 12/13/2017 06/29/2018 Right elbow pain 03/11/2017 11/02/2019 Overview: Added automatically from request for surgery [id number] Right lateral epicondylitis 03/11/201710/15 Overview: Added automatically from request for surgery [id number] Rectal bleeding 02/25/2017 11/02/2019 Overview: Added automatically from request for surgery [id number] Elbow pain, right 12/17/2016 11/02/2019 Overview: Has severe elbow pain, she is seeing Dr. 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 History of Past illness Narrative* Problem Noted Date Resolved Date Epicondylitis, lateral, left 02/23/2018 Overview: Added automatically from request for surgery [id number] Controlled type 2 diabetes m ellitus without complication, without long-term current use of insulin 12/13/2017 06/29/2018 Right elbow pain 03/11/2017 11/02/2019 Overview: Added automatically from request for surgery [id number] Right lateral epicondylitis 03/11/201710/15 Overview: Added automatically from request for surgery [id number] Rectal bleeding 02/25/2017 11/02/2019 Overview: Added automatically from request for surgery [id number] Elbow pain, right 12/17/2016 11/02/2019 Overview: Has severe elbow pain, she is seeing Dr. 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 History of Past illness Narrative* Problem Noted Date Resolved Date Epicondylitis, lateral, left 02/23/2018 Overview: Added automatically from request for surgery [id number] Controlled type 2 diabetes m ellitus without complication, without long-term current use of insulin 12/13/2017 06/29/2018 Right elbow pain 03/11/2017 11/02/2019 Overview: Added automatically from request for surgery [id number] Right lateral epicondylitis 03/11/201710/15 Overview: Added automatically from request for surgery [id number] Rectal bleeding 02/25/2017 11/02/2019 Overview: Added automatically from request for surgery [id number] Elbow pain, right 12/17/2016 11/02/2019 Overview: Has severe elbow pain, she is seeing Dr. 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 History of Past illness Narrative* Problem Noted Date Resolved Date Epicondylitis, lateral, left 02/23/2018 Overview: Added automatically from request for surgery [id number] Controlled type 2 diabetes m ellitus without complication, without long-term current use of insulin 12/13/2017 06/29/2018 Right elbow pain 03/11/2017 11/02/2019 Overview: Added automatically from request for surgery [id number] Right lateral epicondylitis 03/11/201710/15 Overview: Added automatically from request for surgery [id number] Rectal bleeding 02/25/2017 11/02/2019 Overview: Added automatically from request for surgery [id number] Elbow pain, right 12/17/2016 11/02/2019 Overview: Has severe elbow pain, she is seeing Dr. 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 History of Past illness Narrative* Problem Noted Date Resolved Date Epicondylitis, lateral, left 02/23/2018 Overview: Added automatically from request for surgery [id number] Controlled type 2 diabetes m ellitus without complication, without long-term current use of insulin 12/13/2017 06/29/2018 Right elbow pain 03/11/2017 11/02/2019 Overview: Added automatically from request for surgery [id number] Right lateral epicondylitis 03/11/201710/15 Overview: Added automatically from request for surgery [id number] Rectal bleeding 02/25/2017 11/02/2019 Overview: Added automatically from request for surgery [id number] Elbow pain, right 12/17/2016 11/02/2019 Overview: Has severe elbow pain, she is seeing Dr. 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 History of Past illness Narrative* Problem Noted Date Resolved Date Epicondylitis, lateral, left 02/23/2018 Overview: Added automatically from request for surgery [id number] Controlled type 2 diabetes m ellitus without complication, without long-term current use of insulin 12/13/2017 06/29/2018 Right elbow pain 03/11/2017 11/02/2019 Overview: Added automatically from request for surgery [id number] Right lateral epicondylitis 03/11/201710/15 Overview: Added automatically from request for surgery [id number] Rectal bleeding 02/25/2017 11/02/2019 Overview: Added automatically from request for surgery [id number] Elbow pain, right 12/17/2016 11/02/2019 Overview: Has severe elbow pain, she is seeing Dr. 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 History of Past illness Narrative* Problem Noted Date Resolved Date Epicondylitis, lateral, left 02/23/2018 Overview: Added automatically from request for surgery [id number] Controlled type 2 diabetes m ellitus without complication, without long-term current use of insulin 12/13/2017 06/29/2018 Right elbow pain 03/11/2017 11/02/2019 Overview: Added automatically from request for surgery [id number] Right lateral epicondylitis 03/11/201710/15 Overview: Added automatically from request for surgery [id number] Rectal bleeding 02/25/2017 11/02/2019 Overview: Added automatically from request for surgery [id number] Elbow pain, right 12/17/2016 11/02/2019 Overview: Has severe elbow pain, she is seeing Dr. 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 History of Past illness Narrative* Problem Noted Date Resolved Date Epicondylitis, lateral, left 02/23/2018 Overview: Added automatically from request for surgery [id number] Controlled type 2 diabetes m ellitus without complication, without long-term current use of insulin 12/13/2017 06/29/2018 Right elbow pain 03/11/2017 11/02/2019 Overview: Added automatically from request for surgery [id number] Right lateral epicondylitis 03/11/201710/15 Overview: Added automatically from request for surgery [id number] Rectal bleeding 02/25/2017 11/02/2019 Overview: Added automatically from request for surgery [id number] Elbow pain, right 12/17/2016 11/02/2019 Overview: Has severe elbow pain, she is seeing Dr. 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 History of Past illness Narrative* Problem Noted Date Resolved Date Epicondylitis, lateral, left 02/23/2018 Overview: Added automatically from request for surgery [id number] Controlled type 2 diabetes m rubinaitus without complication, without long-term current use of insulin 12/13/2017 06/29/2018 Right elbow pain 03/11/2017 11/02/2019 Overview: Added automatically from request for surgery [id number] Right lateral epicondylitis 03/11/201710/15 Overview: Added automatically from request for surgery [id number] Rectal bleeding 02/25/2017 11/02/2019 Overview: Added automatically from request for surgery [id number] Elbow pain, right 12/17/2016 11/02/2019 Overview: Has severe elbow pain, she is seeing Dr. 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 History of Past illness Narrative* Problem Noted Date Resolved Date Epicondylitis, lateral, left 02/23/2018 Overview: Added automatically from request for surgery [id number] Controlled type 2 diabetes m ellitus without complication, without long-term current use of insulin 12/13/2017 06/29/2018 Right elbow pain 03/11/2017 11/02/2019 Overview: Added automatically from request for surgery [id number] Right lateral epicondylitis 03/11/201710/15 Overview: Added automatically from request for surgery [id number] Rectal bleeding 02/25/2017 11/02/2019 Overview: Added automatically from request for surgery [id number] Elbow pain, right 12/17/2016 11/02/2019 Overview: Has severe elbow pain, she is seeing Dr. 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 History of Past illness Narrative* Problem Noted Date Resolved Date Epicondylitis, lateral, left 02/23/2018 Overview: Added automatically from request for surgery [id number] Controlled type 2 diabetes m ellitus without complication, without long-term current use of insulin 12/13/2017 06/29/2018 Right elbow pain 03/11/2017 11/02/2019 Overview: Added automatically from request for surgery [id number] Right lateral epicondylitis 03/11/201710/15 Overview: Added automatically from request for surgery [id number] Rectal bleeding 02/25/2017 11/02/2019 Overview: Added automatically from request for surgery [id number] Elbow pain, right 12/17/2016 11/02/2019 Overview: Has severe elbow pain, she is seeing Dr. 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 History of Past illness Narrative* Problem Noted Date Resolved Date Epicondylitis, lateral, left 02/23/2018 Overview: Added automatically from request for surgery [id number] Controlled type 2 diabetes m ellitus without complication, without long-term current use of insulin 12/13/2017 06/29/2018 Right elbow pain 03/11/2017 11/02/2019 Overview: Added automatically from request for surgery [id number] Right lateral epicondylitis 03/11/201710/15 Overview: Added automatically from request for surgery [id number] Rectal bleeding 02/25/2017 11/02/2019 Overview: Added automatically from request for surgery [id number] Elbow pain, right 12/17/2016 11/02/2019 Overview: Has severe elbow pain, she is seeing Dr. 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 History of Past illness Narrative* Problem Noted Date Resolved Date Epicondylitis, lateral, left 02/23/2018 Overview: Added automatically from request for surgery [id number] Controlled type 2 diabetes m ellitus without complication, without long-term current use of insulin 12/13/2017 06/29/2018 Right elbow pain 03/11/2017 11/02/2019 Overview: Added automatically from request for surgery [id number] Right lateral epicondylitis 03/11/201710/15 Overview: Added automatically from request for surgery [id number] Rectal bleeding 02/25/2017 11/02/2019 Overview: Added automatically from request for surgery [id number] Elbow pain, right 12/17/2016 11/02/2019 Overview: Has severe elbow pain, she is seeing Dr. 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 History of Past illness Narrative* Problem Noted Date Resolved Date Epicondylitis, lateral, left 02/23/2018 Overview: Added automatically from request for surgery [id number] Controlled type 2 diabetes m ellitus without complication, without long-term current use of insulin 12/13/2017 06/29/2018 Right elbow pain 03/11/2017 11/02/2019 Overview: Added automatically from request for surgery [id number] Right lateral epicondylitis 03/11/201710/15 Overview: Added automatically from request for surgery [id number] Rectal bleeding 02/25/2017 11/02/2019 Overview: Added automatically from request for surgery [id number] Elbow pain, right 12/17/2016 11/02/2019 Overview: Has severe elbow pain, she is seeing Dr. 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 History of Past illness Narrative* Problem Noted Date Resolved Date Epicondylitis, lateral, left 02/23/2018 Overview: Added automatically from request for surgery [id number] Controlled type 2 diabetes m ellitus without complication, without long-term current use of insulin 12/13/2017 06/29/2018 Right elbow pain 03/11/2017 11/02/2019 Overview: Added automatically from request for surgery [id number] Right lateral epicondylitis 03/11/201710/15 Overview: Added automatically from request for surgery [id number] Rectal bleeding 02/25/2017 11/02/2019 Overview: Added automatically from request for surgery [id number] Elbow pain, right 12/17/2016 11/02/2019 Overview: Has severe elbow pain, she is seeing Dr. 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 History of Past illness Narrative* Problem Noted Date Resolved Date Epicondylitis, lateral, left 02/23/2018 Overview: Added automatically from request for surgery [id number] Controlled type 2 diabetes m ellitus without complication, without long-term current use of insulin 12/13/2017 06/29/2018 Right elbow pain 03/11/2017 11/02/2019 Overview: Added automatically from request for surgery [id number] Right lateral epicondylitis 03/11/201710/15 Overview: Added automatically from request for surgery [id number] Rectal bleeding 02/25/2017 11/02/2019 Overview: Added automatically from request for surgery [id number] Elbow pain, right 12/17/2016 11/02/2019 Overview: Has severe elbow pain, she is seeing Dr. 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 History of Past illness Narrative* Problem Noted Date Resolved Date Epicondylitis, lateral, left 02/23/2018 Overview: Added automatically from request for surgery [id number] Controlled type 2 diabetes m ellitus without complication, without long-term current use of insulin 12/13/2017 06/29/2018 Right elbow pain 03/11/2017 11/02/2019 Overview: Added automatically from request for surgery [id number] Right lateral epicondylitis 03/11/201710/15 Overview: Added automatically from request for surgery [id number] Rectal bleeding 02/25/2017 11/02/2019 Overview: Added automatically from request for surgery [id number] Elbow pain, right 12/17/2016 11/02/2019 Overview: Has severe elbow pain, she is seeing Dr. 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10-[facility] History of Past illness Narrative* Problem Noted Date Resolved Date Epicondylitis, lateral, left 02/23/2018 Overview: Added automatically from request for surgery [id number] Controlled type 2 diabetes m ellitus without complication, without long-term current use of insulin 12/13/2017 06/29/2018 Right elbow pain 03/11/2017 11/02/2019 Overview: Added automatically from request for surgery [id number] Right lateral epicondylitis 03/11/201710/15 Overview: Added automatically from request for surgery [id number] Rectal bleeding 02/25/2017 11/02/2019 Overview: Added automatically from request for surgery [id number] Elbow pain, right 12/17/2016 11/02/2019 Overview: Has severe elbow pain, she is seeing Dr. 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 History of Past illness Narrative* Problem Noted Date Resolved Date Epicondylitis, lateral, left 02/23/2018 Overview: Added automatically from request for surgery [id number] Controlled type 2 diabetes m ellitus without complication, without long-term current use of insulin 12/13/2017 06/29/2018 Right elbow pain 03/11/2017 11/02/2019 Overview: Added automatically from request for surgery [id number] Right lateral epicondylitis 03/11/201710/15 Overview: Added automatically from request for surgery [id number] Rectal bleeding 02/25/2017 11/02/2019 Overview: Added automatically from request for surgery [id number] Elbow pain, right 12/17/2016 11/02/2019 Overview: Has severe elbow pain, she is seeing Dr. 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 History of Past illness Narrative* Problem Noted Date Resolved Date Epicondylitis, lateral, left 02/23/2018 Overview: Added automatically from request for surgery [id number] Controlled type 2 diabetes m ellitus without complication, without long-term current use of insulin 12/13/2017 06/29/2018 Right elbow pain 03/11/2017 11/02/2019 Overview: Added automatically from request for surgery [id number] Right lateral epicondylitis 03/11/201710/15 Overview: Added automatically from request for surgery [id number] Rectal bleeding 02/25/2017 11/02/2019 Overview: Added automatically from request for surgery [id number] Elbow pain, right 12/17/2016 11/02/2019 Overview: Has severe elbow pain, she is seeing Dr. 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 History of Past illness Narrative* Problem Noted Date Resolved Date Epicondylitis, lateral, left 02/23/2018 Overview: Added automatically from request for surgery [id number] Controlled type 2 diabetes m ellitus without complication, without long-term current use of insulin 12/13/2017 06/29/2018 Right elbow pain 03/11/2017 11/02/2019 Overview: Added automatically from request for surgery [id number] Right lateral epicondylitis 03/11/201710/15 Overview: Added automatically from request for surgery [id number] Rectal bleeding 02/25/2017 11/02/2019 Overview: Added automatically from request for surgery [id number] Elbow pain, right 12/17/2016 11/02/2019 Overview: Has severe elbow pain, she is seeing Dr. 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 History of Past illness Narrative* Problem Noted Date Resolved Date Epicondylitis, lateral, left 02/23/2018 Overview: Added automatically from request for surgery [id number] Controlled type 2 diabetes m ellitus without complication, without long-term current use of insulin 12/13/2017 06/29/2018 Right elbow pain 03/11/2017 11/02/2019 Overview: Added automatically from request for surgery [id number] Right lateral epicondylitis 03/11/201710/15 Overview: Added automatically from request for surgery [id number] Rectal bleeding 02/25/2017 11/02/2019 Overview: Added automatically from request for surgery [id number] Elbow pain, right 12/17/2016 11/02/2019 Overview: Has severe elbow pain, she is seeing Dr. 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 History of Past illness Narrative* Problem Noted Date Resolved Date Epicondylitis, lateral, left 02/23/2018 Overview: Added automatically from request for surgery [id number] Controlled type 2 diabetes m rubinaitus without complication, without long-term current use of insulin 12/13/2017 06/29/2018 Right elbow pain 03/11/2017 11/02/2019 Overview: Added automatically from request for surgery [id number] Right lateral epicondylitis 03/11/201710/15 Overview: Added automatically from request for surgery [id number] Rectal bleeding 02/25/2017 11/02/2019 Overview: Added automatically from request for surgery [id number] Elbow pain, right 12/17/2016 11/02/2019 Overview: Has severe elbow pain, she is seeing Dr. 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 History of Past illness Narrative* Problem Noted Date Resolved Date Epicondylitis, lateral, left 02/23/2018 Overview: Added automatically from request for surgery [id number] Controlled type 2 diabetes m ellitus without complication, without long-term current use of insulin 12/13/2017 06/29/2018 Right elbow pain 03/11/2017 11/02/2019 Overview: Added automatically from request for surgery [id number] Right lateral epicondylitis 03/11/201710/15 Overview: Added automatically from request for surgery [id number] Rectal bleeding 02/25/2017 11/02/2019 Overview: Added automatically from request for surgery [id number] Elbow pain, right 12/17/2016 11/02/2019 Overview: Has severe elbow pain, she is seeing Dr. 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 History of Past illness Narrative* Problem Noted Date Resolved Date Epicondylitis, lateral, left 02/23/2018 Overview: Added automatically from request for surgery [id number] Controlled type 2 diabetes m ellitus without complication, without long-term current use of insulin 12/13/2017 06/29/2018 Right elbow pain 03/11/2017 11/02/2019 Overview: Added automatically from request for surgery [id number] Right lateral epicondylitis 03/11/201710/15 Overview: Added automatically from request for surgery [id number] Rectal bleeding 02/25/2017 11/02/2019 Overview: Added automatically from request for surgery [id number] Elbow pain, right 12/17/2016 11/02/2019 Overview: Has severe elbow pain, she is seeing Dr. 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 History of Past illness Narrative* Problem Noted Date Diagnosed Date Resolved Date Epicondylitis, lateral, left 02/23/2018 11/02/2019 Overview: Added automatically from request for surgery [id number] Controlled type 2 diabetes m ellitus without complication, without long-term current use of insulin 12/13/2017 06/29/2018 Right elbow pain 03/11/2017 11/02/2019 Overview: Added automatically from request for surgery [id number] Right lateral epicondylitis 03/11/2017 11/02/2019 Overview: Added automatically from request for surgery [id number] Rectal bleeding 02/25/2017 11/02/2019 Overview: Added automatically from request for surgery [id number] Elbow pain, right 12/17/2016 11/02/2019 Overview: Has severe elbow pain, she is seeing Dr. 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 History of Past illness Narrative* Problem Noted Date Diagnosed Date Resolved Date Epicondylitis, lateral, left 02/23/2018 11/02/2019 Overview: Added automatically from request for surgery [id number] Controlled type 2 diabetes m ellitus without complication, without long-term current use of insulin 12/13/2017 06/29/2018 Right elbow pain 03/11/2017 11/02/2019 Overview: Added automatically from request for surgery [id number] Right lateral epicondylitis 03/11/2017 11/02/2019 Overview: Added automatically from request for surgery [id number] Rectal bleeding 02/25/2017 11/02/2019 Overview: Added automatically from request for surgery [id number] Elbow pain, right 12/17/2016 11/02/2019 Overview: Has severe elbow pain, she is seeing Dr. 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 History of Past illness Narrative* Problem Noted Date Diagnosed Date Resolved Date Epicondylitis, lateral, left 02/23/2018 11/02/2019 Overview: Added automatically from request for surgery [id number] Controlled type 2 diabetes m rubinaitus without complication, without long-term current use of insulin 12/13/2017 06/29/2018 Right elbow pain 03/11/2017 11/02/2019 Overview: Added automatically from request for surgery [id number] Right lateral epicondylitis 03/11/2017 11/02/2019 Overview: Added automatically from request for surgery [id number] Rectal bleeding 02/25/2017 11/02/2019 Overview: Added automatically from request for surgery [id number] Elbow pain, right 12/17/2016 11/02/2019 Overview: Has severe elbow pain, she is seeing Dr. 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 History of Past illness Narrative* Problem Noted Date Diagnosed Date Resolved Date Epicondylitis, lateral, left 02/23/2018 11/02/2019 Overview: Added automatically from request for surgery [id number] Controlled type 2 diabetes m [place] without complication, without long-term current use of insulin 12/13/2017 06/29/2018 Right elbow pain 03/11/2017 11/02/2019 Overview: Added automatically from request for surgery [id number] Right lateral epicondylitis 03/11/2017 11/02/2019 Overview: Added automatically from request for surgery [id number] Rectal bleeding 02/25/2017 11/02/2019 Overview: Added automatically from request for surgery [id number] Elbow pain, right 12/17/2016 11/02/2019 Overview: Has severe elbow pain, she is seeing Dr. 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 History of Past illness Narrative* Problem Noted Date Diagnosed Date Resolved Date Epicondylitis, lateral, left 02/23/2018 11/02/2019 Overview: Added automatically from request for surgery [id number] Controlled type 2 diabetes m ellitus without complication, without long-term current use of insulin 12/13/2017 06/29/2018 Right elbow pain 03/11/2017 11/02/2019 Overview: Added automatically from request for surgery [id number] Right lateral epicondylitis 03/11/2017 11/02/2019 Overview: Added automatically from request for surgery [id number] Rectal bleeding 02/25/2017 11/02/2019 Overview: Added automatically from request for surgery [id number] Elbow pain, right 12/17/2016 11/02/2019 Overview: Has severe elbow pain, she is seeing Dr. 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 History of Past illness Narrative* Problem Noted Date Diagnosed Date Resolved Date Epicondylitis, lateral, left 02/23/2018 11/02/2019 Overview: Added automatically from request for surgery [id number] Controlled type 2 diabetes m ellitus without complication, without long-term current use of insulin 12/13/2017 06/29/2018 Right elbow pain 03/11/2017 11/02/2019 Overview: Added automatically from request for surgery [id number] Right lateral epicondylitis 03/11/2017 11/02/2019 Overview: Added automatically from request for surgery [id number] Rectal bleeding 02/25/2017 11/02/2019 Overview: Added automatically from request for surgery [id number] Elbow pain, right 12/17/2016 11/02/2019 Overview: Has severe elbow pain, she is seeing Dr. 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 History of Past illness Narrative* Problem Noted Date Diagnosed Date Resolved Date Epicondylitis, lateral, left 02/23/2018 11/02/2019 Overview: Added automatically from request for surgery [id number] Controlled type 2 diabetes m ellitus without complication, without long-term current use of insulin 12/13/2017 06/29/2018 Right elbow pain 03/11/2017 11/02/2019 Overview: Added automatically from request for surgery [id number] Right lateral epicondylitis 03/11/2017 11/02/2019 Overview: Added automatically from request for surgery [id number] Rectal bleeding 02/25/2017 11/02/2019 Overview: Added automatically from request for surgery [id number] Elbow pain, right 12/17/2016 11/02/2019 Overview: Has severe elbow pain, she is seeing Dr. 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 History of Past illness Narrative* Problem Noted Date Diagnosed Date Resolved Date Epicondylitis, lateral, left 02/23/2018 11/02/2019 Overview: Added automatically from request for surgery [id number] Controlled type 2 diabetes m ellitus without complication, without long-term current use of insulin 12/13/2017 06/29/2018 Right elbow pain 03/11/2017 11/02/2019 Overview: Added automatically from request for surgery [id number] Right lateral epicondylitis 03/11/2017 11/02/2019 Overview: Added automatically from request for surgery [id number] Rectal bleeding 02/25/2017 11/02/2019 Overview: Added automatically from request for surgery [id number] Elbow pain, right 12/17/2016 11/02/2019 Overview: Has severe elbow pain, she is seeing Dr. 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 History of Past illness Narrative* Problem Noted Date Diagnosed Date Resolved Date Epicondylitis, lateral, left 02/23/2018 11/02/2019 Overview: Added automatically from request for surgery [id number] Controlled type 2 diabetes m ellitus without complication, without long-term current use of insulin 12/13/2017 06/29/2018 Right elbow pain 03/11/2017 11/02/2019 Overview: Added automatically from request for surgery [id number] Right lateral epicondylitis 03/11/2017 11/02/2019 Overview: Added automatically from request for surgery [id number] Rectal bleeding 02/25/2017 11/02/2019 Overview: Added automatically from request for surgery [id number] Elbow pain, right 12/17/2016 11/02/2019 Overview: Has severe elbow pain, she is seeing Dr. 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 History of Past illness Narrative* Problem Noted Date Diagnosed Date Resolved Date Epicondylitis, lateral, left 02/23/2018 11/02/2019 Overview: Added automatically from request for surgery [id number] Controlled type 2 diabetes m ellitus without complication, without long-term current use of insulin 12/13/2017 06/29/2018 Right elbow pain 03/11/2017 11/02/2019 Overview: Added automatically from request for surgery [id number] Right lateral epicondylitis 03/11/2017 11/02/2019 Overview: Added automatically from request for surgery [id number] Rectal bleeding 02/25/2017 11/02/2019 Overview: Added automatically from request for surgery [id number] Elbow pain, right 12/17/2016 11/02/2019 Overview: Has severe elbow pain, she is seeing Dr. 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 History of Past illness Narrative* Problem Noted Date Diagnosed Date Resolved Date Epicondylitis, lateral, left 02/23/2018 11/02/2019 Overview: Added automatically from request for surgery [id number] Right elbow pain 03/11/2017 11/02/2019 Overview: Added automatically from request for surgery [id number] Right lateral epicondylitis 03/11/2017 11/02/2019 Overview: Added automatically from request for surgery [id number] Rectal bleeding 02/25/2017 11/02/2019 Overview: Added automatically from request for surgery [id number] Elbow pain, right 12/17/2016 11/02/2019 Overview: Has severe elbow pain, she is seeing Dr. 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 History of Past illness Narrative* Problem Noted Date Diagnosed Date Resolved Date Epicondylitis, lateral, left 02/23/2018 11/02/2019 Overview: Added automatically from request for surgery [id number] Right elbow pain 03/11/2017 11/02/2019 Overview: Added automatically from request for surgery [id number] Right lateral epicondylitis 03/11/2017 11/02/2019 Overview: Added automatically from request for surgery [id number] Rectal bleeding 02/25/2017 11/02/2019 Overview: Added automatically from request for surgery [id number] Elbow pain, right 12/17/2016 11/02/2019 Overview: Has severe elbow pain, she is seeing Dr. 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 History of Past illness Narrative* Problem Noted Date Diagnosed Date Resolved Date Epicondylitis, lateral, left 02/23/2018 11/02/2019 Overview: Added automatically from request for surgery [id number] Right elbow pain 03/11/2017 11/02/2019 Overview: Added automatically from request for surgery [id number] Right lateral epicondylitis 03/11/2017 11/02/2019 Overview: Added automatically from request for surgery [id number] Rectal bleeding 02/25/2017 11/02/2019 Overview: Added automatically from request for surgery [id number] Elbow pain, right 12/17/2016 11/02/2019 Overview: Has severe elbow pain, she is seeing Dr. 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 History of Past illness Narrative* Problem Noted Date Diagnosed Date Resolved Date Epicondylitis, lateral, left 02/23/2018 11/02/2019 Overview: Added automatically from request for surgery [id number] Right elbow pain 03/11/2017 11/02/2019 Overview: Added automatically from request for surgery [id number] Right lateral epicondylitis 03/11/2017 11/02/2019 Overview: Added automatically from request for surgery [id number] Rectal bleeding 02/25/2017 11/02/2019 Overview: Added automatically from request for surgery [id number] Elbow pain, right 12/17/2016 11/02/2019 Overview: Has severe elbow pain, she is seeing Dr. 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 History of Past illness Narrative* Problem Noted Date Diagnosed Date Resolved Date Epicondylitis, lateral, left 02/23/2018 11/02/2019 Overview: Added automatically from request for surgery [id number] Right elbow pain 03/11/2017 11/02/2019 Overview: Added automatically from request for surgery [id number] Right lateral epicondylitis 03/11/2017 11/02/2019 Overview: Added automatically from request for surgery [id number] Rectal bleeding 02/25/2017 11/02/2019 Overview: Added automatically from request for surgery [id number] Elbow pain, right 12/17/2016 11/02/2019 Overview: Has severe elbow pain, she is seeing Dr. 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 History of Past illness Narrative* Problem Noted Date Diagnosed Date Resolved Date Epicondylitis, lateral, left 02/23/2018 11/02/2019 Overview: Added automatically from request for surgery [id number] Right elbow pain 03/11/2017 11/02/2019 Overview: Added automatically from request for surgery [id number] Right lateral epicondylitis 03/11/2017 11/02/2019 Overview: Added automatically from request for surgery [id number] Rectal bleeding 02/25/2017 11/02/2019 Overview: Added automatically from request for surgery [id number] Elbow pain, right 12/17/2016 11/02/2019 Overview: Has severe elbow pain, she is seeing Dr. 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 History of Past illness Narrative* Problem Noted Date Diagnosed Date Resolved Date Epicondylitis, lateral, left 02/23/2018 11/02/2019 Overview: Added automatically from request for surgery [id number] Right elbow pain 03/11/2017 11/02/2019 Overview: Added automatically from request for surgery [id number] Right lateral epicondylitis 03/11/2017 11/02/2019 Overview: Added automatically from request for surgery [id number] Rectal bleeding 02/25/2017 11/02/2019 Overview: Added automatically from request for surgery [id number] Elbow pain, right 12/17/2016 11/02/2019 Overview: Has severe elbow pain, she is seeing Dr. 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 History of Past illness Narrative* Problem Noted Date Diagnosed Date Resolved Date Epicondylitis, lateral, left 02/23/2018 11/02/2019 Overview: Added automatically from request for surgery [id number] Right elbow pain 03/11/2017 11/02/2019 Overview: Added automatically from request for surgery [id number] Right lateral epicondylitis 03/11/2017 11/02/2019 Overview: Added automatically from request for surgery [id number] Rectal bleeding 02/25/2017 11/02/2019 Overview: Added automatically from request for surgery [id number] Elbow pain, right 12/17/2016 11/02/2019 Overview: Has severe elbow pain, she is seeing Dr. 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 History of Past illness Narrative* Problem Noted Date Diagnosed Date Resolved Date Epicondylitis, lateral, left 02/23/2018 11/02/2019 Overview: Added automatically from request for surgery [id number] Right elbow pain 03/11/2017 11/02/2019 Overview: Added automatically from request for surgery [id number] Right lateral epicondylitis 03/11/2017 11/02/2019 Overview: Added automatically from request for surgery [id number] Rectal bleeding 02/25/2017 11/02/2019 Overview: Added automatically from request for surgery [id number] Elbow pain, right 12/17/2016 11/02/2019 Overview: Has severe elbow pain, she is seeing Dr. 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 glucose History of 2019 novel coronavirus disease (COVID-19) Chest pain, unspecified type- Primary Shortness of breath Palpitations Controlled type 2 diabetes mellitus without complication, without long-term current use of insulin ([facility]) Chest pain, unspecified type Shortness of breath [facility]* Diagnosis Gastroesophageal reflux disease without esophagitis- Primary Esophageal reflux Elbow pain, right Pain in joint, upper arm Chest pain, unspecified type Tobacco use disorder Adjustment disorder with depressed mood BMI 50.0-59.9, adult ([facility]) Body Mass Index 50.0-59.9, adult Plantar fasciitis Plantar fascial fibromatosis Pre-operative examination- Primary Preoperative examination, unspecified Trigger thumb, right thumb Adjustment disorder with depressed mood Mild intermittent asthma with acute exacerbation Unspecified asthma, with exacerbation Bilateral lower extremity edema Edema BMI 50.0-59.9, adult ([facility]) Body Mass Index 50.0-59.9, adult Gastroesophageal reflux disease without esophagitis Esophageal reflux Other hyperlipidemia EAMON (obstructive sleep apnea) Obstructive sleep apnea (adult) (pediatric) Spinal stenosis, lumbar region, without neurogenic claudication Tobacco use disorder Hypothyroidism, unspecified type Prediabetes Other abnormal glucose History of 2019 novel coronavirus disease (COVID-19) Chest pain, unspecified type- Primary Shortness of breath Palpitations Elevated d-dimer Abnormal coagulation profile [facility]* Diagnosis Gastroesophageal reflux disease without esophagitis- Primary Esophageal reflux Elbow pain, right Pain in joint, upper arm Chest pain, unspecified type Tobacco use disorder Adjustment disorder with depressed mood BMI 50.0-59.9, adult ([facility]) Body Mass Index 50.0-59.9, adult Plantar fasciitis Plantar fascial fibromatosis Pre-operative examination- Primary Preoperative examination, unspecified Trigger thumb, right thumb Adjustment disorder with depressed mood Mild intermittent asthma with acute exacerbation Unspecified asthma, with exacerbation Bilateral lower extremity edema Edema BMI 50.0-59.9, adult ([facility]) Body Mass Index 50.0-59.9, adult Gastroesophageal reflux disease without esophagitis Esophageal reflux Other hyperlipidemia EAMON (obstructive sleep apnea) Obstructive sleep apnea (adult) (pediatric) Spinal stenosis, lumbar region, without neurogenic claudication Tobacco use disorder Hypothyroidism, unspecified type Prediabetes Other abnormal glucose History of 2019 novel coronavirus disease (COVID-19) Shortness of breath- Primary Chest pain, unspecified type Nodular radiologic density Other nonspecific (abnormal) findings on radiological and other examinations of body structure Anger Other signs and symptoms involving emotional state Elevated d-dimer Abnormal coagulation profile Nausea and vomiting, unspecified vomiting type Essential hypertension Unspecified essential hypertension [facility]* Diagnosis Gastroesophageal reflux disease without esophagitis- Primary Esophageal reflux Elbow pain, right Pain in joint, upper arm Chest pain, unspecified type Tobacco use disorder Adjustment disorder with depressed mood BMI 50.0-59.9, adult ([facility]) Body Mass Index 50.0-59.9, adult Plantar fasciitis Plantar fascial fibromatosis Pre-operative examination- Primary Preoperative examination, unspecified Trigger thumb, right thumb Adjustment disorder with depressed mood Mild intermittent asthma with acute exacerbation Unspecified asthma, with exacerbation Bilateral lower extremity edema Edema BMI 50.0-59.9, adult ([facility]) Body Mass Index 50.0-59.9, adult Gastroesophageal reflux disease without esophagitis Esophageal reflux Other hyperlipidemia EAMON (obstructive sleep apnea) Obstructive sleep apnea (adult) (pediatric) Spinal stenosis, lumbar region, without neurogenic claudication Tobacco use disorder Hypothyroidism, unspecified type Prediabetes Other abnormal glucose History of 2019 novel coronavirus disease (COVID-19) Right knee pain, unspecified chronicity- Primary documented [facility]* Diagnosis Gastroesophageal reflux disease without esophagitis- Primary Esophageal reflux Elbow pain, right Pain in joint, upper arm Chest pain, unspecified type Tobacco use disorder Adjustment disorder with depressed mood BMI 50.0-59.9, adult ([facility]) Body Mass Index 50.0-59.9, adult Plantar fasciitis Plantar fascial fibromatosis Pre-operative examination- Primary Preoperative examination, unspecified Trigger thumb, right thumb Adjustment disorder with depressed mood Mild intermittent asthma with acute exacerbation Unspecified asthma, with exacerbation Bilateral lower extremity edema Edema BMI 50.0-59.9, adult ([facility]) Body Mass Index 50.0-59.9, adult Gastroesophageal reflux disease without esophagitis Esophageal reflux Other hyperlipidemia EAMON (obstructive sleep apnea) Obstructive sleep apnea (adult) (pediatric) Spinal stenosis, lumbar region, without neurogenic claudication Tobacco use disorder Hypothyroidism, unspecified type Prediabetes Other abnormal glucose History of 2019 novel coronavirus disease (COVID-19) Shortness of breath- Primary Chills Chills (without fever) Cough, unspecified type Wheezing Other fatigue Shortness of breath Chills Chills (without fever) Cough, unspecified type Wheezing Other fatigue documented in this encounter [facility] note* Diagnosis Gastroesophageal reflux disease without esophagitis- Primary Esophageal reflux Elbow pain, right Pain in joint, upper arm Chest pain, unspecified type Tobacco use disorder Adjustment disorder with depressed mood BMI 50.0-59.9, adult ([facility]) Body Mass Index 50.0-59.9, adult Plantar fasciitis Plantar fascial fibromatosis Pre-operative examination- Primary Preoperative examination, unspecified Trigger thumb, right thumb Adjustment disorder with depressed mood Mild intermittent asthma with acute exacerbation Unspecified asthma, with exacerbation Bilateral lower extremity edema Edema BMI 50.0-59.9, adult ([facility]) Body Mass Index 50.0-59.9, adult Gastroesophageal reflux disease without esophagitis Esophageal reflux Other hyperlipidemia EAMON (obstructive sleep apnea) Obstructive sleep apnea (adult) (pediatric) Spinal stenosis, lumbar region, without neurogenic claudication Tobacco use disorder Hypothyroidism, unspecified type Prediabetes Other abnormal glucose History of 2019 novel coronavirus disease (COVID-19) Chest pain, unspecified type Shortness of breath documented in this encounter [facility] note* Diagnosis Gastroesophageal reflux disease without esophagitis- Primary Esophageal reflux Elbow pain, right Pain in joint, upper arm Chest pain, unspecified type Tobacco use disorder Adjustment disorder with depressed mood BMI 50.0-59.9, adult ([facility]) Body Mass Index 50.0-59.9, adult Plantar fasciitis Plantar fascial fibromatosis Pre-operative examination- Primary Preoperative examination, unspecified Trigger thumb, right thumb Adjustment disorder with depressed mood Mild intermittent asthma with acute exacerbation Unspecified asthma, with exacerbation Bilateral lower extremity edema Edema BMI 50.0-59.9, adult ([facility]) Body Mass Index 50.0-59.9, adult Gastroesophageal reflux disease without esophagitis Esophageal reflux Other hyperlipidemia EAMON (obstructive sleep apnea) Obstructive sleep apnea (adult) (pediatric) Spinal stenosis, lumbar region, without neurogenic claudication Tobacco use disorder Hypothyroidism, unspecified type Prediabetes Other abnormal glucose History of 2019 novel coronavirus disease (COVID-19) Epigastric pain Abdominal pain, epigastric Vomiting and diarrhea Vomiting alone documented [facility]* Diagnosis Gastroesophageal reflux disease without esophagitis- Primary Esophageal reflux Elbow pain, right Pain in joint, upper arm Chest pain, unspecified type Tobacco use disorder Adjustment disorder with depressed mood BMI 50.0-59.9, adult ([facility]) Body Mass Index 50.0-59.9, adult Plantar fasciitis Plantar fascial fibromatosis Pre-operative examination- Primary Preoperative examination, unspecified Trigger thumb, right thumb Adjustment disorder with depressed mood Mild intermittent asthma with acute exacerbation Unspecified asthma, with exacerbation Bilateral lower extremity edema Edema BMI 50.0-59.9, adult ([facility]) Body Mass Index 50.0-59.9, adult Gastroesophageal reflux disease without esophagitis Esophageal reflux Other hyperlipidemia EAMON (obstructive sleep apnea) Obstructive sleep apnea (adult) (pediatric) Spinal stenosis, lumbar region, without neurogenic claudication Tobacco use disorder Hypothyroidism, unspecified type Prediabetes Other abnormal glucose History of 2019 novel coronavirus disease (COVID-19) Shortness of breath Chills Chills (without fever) Cough, unspecified type Wheezing Other fatigue [facility] this [facility] Diagnosis Gastroesophageal reflux disease without esophagitis- Primary Esophageal reflux Elbow pain, right Pain in joint, upper arm Chest pain, unspecified type Tobacco use disorder Adjustment disorder with depressed mood BMI 50.0-59.9, adult ([facility]) Body Mass Index 50.0-59.9, adult Plantar fasciitis Plantar fascial fibromatosis Pre-operative examination- Primary Preoperative examination, unspecified Trigger thumb, right thumb Adjustment disorder with depressed mood Mild intermittent asthma with acute exacerbation Unspecified asthma, with exacerbation Bilateral lower extremity edema Edema BMI 50.0-59.9, adult ([facility]) Body Mass Index 50.0-59.9, adult Gastroesophageal reflux disease without esophagitis Esophageal reflux Other hyperlipidemia EAMON (obstructive sleep apnea) Obstructive sleep apnea (adult) (pediatric) Spinal stenosis, lumbar region, without neurogenic claudication Tobacco use disorder Hypothyroidism, unspecified type Prediabetes Other abnormal glucose History of 2019 novel coronavirus disease (COVID-19) Acute cough [facility]* Diagnosis Gastroesophageal reflux disease without esophagitis- Primary Esophageal reflux Elbow pain, right Pain in joint, upper arm Chest pain, unspecified type Tobacco use disorder Adjustment disorder with depressed mood BMI 50.0-59.9, adult ([facility]) Body Mass Index 50.0-59.9, adult Plantar fasciitis Plantar fascial fibromatosis Pre-operative examination- Primary Preoperative examination, unspecified Trigger thumb, right thumb Adjustment disorder with depressed mood Mild intermittent asthma with acute exacerbation Unspecified asthma, with exacerbation Bilateral lower extremity edema Edema BMI 50.0-59.9, adult ([facility]) Body Mass Index 50.0-59.9, adult Gastroesophageal reflux disease without esophagitis Esophageal reflux Other hyperlipidemia EAMON (obstructive sleep apnea) Obstructive sleep apnea (adult) (pediatric) Spinal stenosis, lumbar region, without neurogenic claudication Tobacco use disorder Hypothyroidism, unspecified type Prediabetes Other abnormal glucose History of 2019 novel coronavirus disease (COVID-19) Acute cough Shortness of breath COVID-19 virus infection [facility] Diagnosis Gastroesophageal reflux disease without esophagitis- Primary Esophageal reflux Elbow pain, right Pain in joint, upper arm Chest pain, unspecified type Tobacco use disorder Adjustment disorder with depressed mood BMI 50.0-59.9, adult ([facility]) Body Mass Index 50.0-59.9, adult Plantar fasciitis Plantar fascial fibromatosis Pre-operative examination- Primary Preoperative examination, unspecified Trigger thumb, right thumb Adjustment disorder with depressed mood Mild intermittent asthma with acute exacerbation Unspecified asthma, with exacerbation Bilateral lower extremity edema Edema BMI 50.0-59.9, adult ([facility]) Body Mass Index 50.0-59.9, adult Gastroesophageal reflux disease without esophagitis Esophageal reflux Other hyperlipidemia EAMON (obstructive sleep apnea) Obstructive sleep apnea (adult) (pediatric) Spinal stenosis, lumbar region, without neurogenic claudication Tobacco use disorder Hypothyroidism, unspecified type Prediabetes Other abnormal glucose History of 2019 novel coronavirus disease (COVID-19) Shortness of breath- Primary Cough, unspecified type Wheezing Acute sinusitis, recurrence not specified, unspecified location Malaise Other malaise and fatigue [facility] Diagnosis Gastroesophageal reflux disease without esophagitis- Primary Esophageal reflux Elbow pain, right Pain in joint, upper arm Chest pain, unspecified type Tobacco use disorder Adjustment disorder with depressed mood BMI 50.0-59.9, adult ([facility]) Body Mass Index 50.0-59.9, adult Plantar fasciitis Plantar fascial fibromatosis Pre-operative examination- Primary Preoperative examination, unspecified Trigger thumb, right thumb Adjustment disorder with depressed mood Mild intermittent asthma with acute exacerbation Unspecified asthma, with exacerbation Bilateral lower extremity edema Edema BMI 50.0-59.9, adult ([facility]) Body Mass Index 50.0-59.9, adult Gastroesophageal reflux disease without esophagitis Esophageal reflux Other hyperlipidemia EAMON (obstructive sleep apnea) Obstructive sleep apnea (adult) (pediatric) Spinal stenosis, lumbar region, without neurogenic claudication Tobacco use disorder Hypothyroidism, unspecified type Prediabetes Other abnormal glucose History of 2019 novel coronavirus disease (COVID-19) Shortness of breath Cough, unspecified type Wheezing Acute sinusitis, recurrence not specified, unspecified location [facility]* Diagnosis Gastroesophageal reflux disease without esophagitis- Primary Esophageal reflux Elbow pain, right Pain in joint, upper arm Chest pain, unspecified type Tobacco use disorder Adjustment disorder with depressed mood BMI 50.0-59.9, adult ([facility]) Body Mass Index 50.0-59.9, adult Plantar fasciitis Plantar fascial fibromatosis Pre-operative examination- Primary Preoperative examination, unspecified Trigger thumb, right thumb Adjustment disorder with depressed mood Mild intermittent asthma with acute exacerbation Unspecified asthma, with exacerbation Bilateral lower extremity edema Edema BMI 50.0-59.9, adult ([facility]) Body Mass Index 50.0-59.9, adult Gastroesophageal reflux disease without esophagitis Esophageal reflux Other hyperlipidemia EAMON (obstructive sleep apnea) Obstructive sleep apnea (adult) (pediatric) Spinal stenosis, lumbar region, without neurogenic claudication Tobacco use disorder Hypothyroidism, unspecified type Prediabetes Other abnormal glucose History of 2019 novel coronavirus disease (COVID-19) Acute pain of right knee documented in this encounter [facility] note* Diagnosis Gastroesophageal reflux disease without esophagitis- Primary Esophageal reflux Elbow pain, right Pain in joint, upper arm Chest pain, unspecified type Tobacco use disorder Adjustment disorder with depressed mood BMI 50.0-59.9, adult ([facility]) Body Mass Index 50.0-59.9, adult Plantar fasciitis Plantar fascial fibromatosis SOB (shortness of breath) Shortness of breath Pre-operative examination- Primary Preoperative examination, unspecified Trigger thumb, right thumb Adjustment disorder with depressed mood Mild intermittent asthma with acute exacerbation Unspecified asthma, with exacerbation Bilateral lower extremity edema Edema BMI 50.0-59.9, adult ([facility]) Body Mass Index 50.0-59.9, adult Gastroesophageal reflux disease without esophagitis Esophageal reflux Other hyperlipidemia EAMON (obstructive sleep apnea) Obstructive sleep apnea (adult) (pediatric) Spinal stenosis, lumbar region, without neurogenic claudication Tobacco use disorder Hypothyroidism, unspecified type Prediabetes Other abnormal glucose History of 2019 novel coronavirus disease (COVID-19) documented in this encounter [facility] note* Diagnosis Gastroesophageal reflux disease without esophagitis- Primary Esophageal reflux Elbow pain, right Pain in joint, upper arm Chest pain, unspecified type Tobacco use disorder Adjustment disorder with depressed mood BMI 50.0-59.9, adult ([facility]) Body Mass Index 50.0-59.9, adult Plantar fasciitis Plantar fascial fibromatosis Pre-operative examination- Primary Preoperative examination, unspecified Trigger thumb, right thumb Adjustment disorder with depressed mood Mild intermittent asthma with acute exacerbation Unspecified asthma, with exacerbation Bilateral lower extremity edema Edema BMI 50.0-59.9, adult ([facility]) Body Mass Index 50.0-59.9, adult Gastroesophageal reflux disease without esophagitis Esophageal reflux Other hyperlipidemia EAMON (obstructive sleep apnea) Obstructive sleep apnea (adult) (pediatric) Spinal stenosis, lumbar region, without neurogenic claudication Tobacco use disorder Hypothyroidism, unspecified type Prediabetes Other abnormal glucose History of 2019 novel coronavirus disease (COVID-19) Other hyperlipidemia documented in this encounter [facility] note* Diagnosis Gastroesophageal reflux disease without esophagitis- Primary Esophageal reflux Elbow pain, right Pain in joint, upper arm Chest pain, unspecified type Tobacco use disorder Adjustment disorder with depressed mood BMI 50.0-59.9, adult ([facility]) Body Mass Index 50.0-59.9, adult Plantar fasciitis Plantar fascial fibromatosis Pre-operative examination- Primary Preoperative examination, unspecified Trigger thumb, right thumb Adjustment disorder with depressed mood Mild intermittent asthma with acute exacerbation Unspecified asthma, with exacerbation Bilateral lower extremity edema Edema BMI 50.0-59.9, adult ([facility]) Body Mass Index 50.0-59.9, adult Gastroesophageal reflux disease without esophagitis Esophageal reflux Other hyperlipidemia EAMON (obstructive sleep apnea) Obstructive sleep apnea (adult) (pediatric) Spinal stenosis, lumbar region, without neurogenic claudication Tobacco use disorder Hypothyroidism, unspecified type Prediabetes Other abnormal glucose History of 2019 novel coronavirus disease (COVID-19) Shortness of breath- Primary Cough, unspecified type Wheezing Low O2 saturation Abnormal arterial blood gases Mild intermittent asthma with acute exacerbation Unspecified asthma, with exacerbation [facility]* Diagnosis Gastroesophageal reflux disease without esophagitis- Primary Esophageal reflux Elbow pain, right Pain in joint, upper arm Chest pain, unspecified type Tobacco use disorder Adjustment disorder with depressed mood BMI 50.0-59.9, adult ([facility]) Body Mass Index 50.0-59.9, adult Plantar fasciitis Plantar fascial fibromatosis Bacterial URI Exacerbation of asthma, unspecified asthma severity, unspecified whether persistent Pre-operative examination- Primary Preoperative examination, unspecified Trigger thumb, right thumb Adjustment disorder with depressed mood Mild intermittent asthma with acute exacerbation Unspecified asthma, with exacerbation Bilateral lower extremity edema Edema BMI 50.0-59.9, adult ([facility]) Body Mass Index 50.0-59.9, adult Gastroesophageal reflux disease without esophagitis Esophageal reflux Other hyperlipidemia EAMON (obstructive sleep apnea) Obstructive sleep apnea (adult) (pediatric) Spinal stenosis, lumbar region, without neurogenic claudication Tobacco use disorder Hypothyroidism, unspecified type Prediabetes Other abnormal glucose History of 2019 novel coronavirus disease (COVID-19) documented in this encounter [facility] note* Diagnosis Gastroesophageal reflux disease without esophagitis- Primary Esophageal reflux Elbow pain, right Pain in joint, upper arm Chest pain, unspecified type Tobacco use disorder Adjustment disorder with depressed mood BMI 50.0-59.9, adult ([facility]) Body Mass Index 50.0-59.9, adult Plantar fasciitis Plantar fascial fibromatosis SOB (shortness of breath) Shortness of breath Pre-operative examination- Primary Preoperative examination, unspecified Trigger thumb, right thumb Adjustment disorder with depressed mood Mild intermittent asthma with acute exacerbation Unspecified asthma, with exacerbation Bilateral lower extremity edema Edema BMI 50.0-59.9, adult ([facility]) Body Mass Index 50.0-59.9, adult Gastroesophageal reflux disease without esophagitis Esophageal reflux Other hyperlipidemia EAMON (obstructive sleep apnea) Obstructive sleep apnea (adult) (pediatric) Spinal stenosis, lumbar region, without neurogenic claudication Tobacco use disorder Hypothyroidism, unspecified type Prediabetes Other abnormal glucose History of 2019 novel coronavirus disease (COVID-19) documented in this encounter [facility] note* Diagnosis Gastroesophageal reflux disease without esophagitis- Primary Esophageal reflux Elbow pain, right Pain in joint, upper arm Chest pain, unspecified type Tobacco use disorder Adjustment disorder with depressed mood BMI 50.0-59.9, adult ([facility]) Body Mass Index 50.0-59.9, adult Plantar fasciitis Plantar fascial fibromatosis Pre-operative examination- Primary Preoperative examination, unspecified Trigger thumb, right thumb Adjustment disorder with depressed mood Mild intermittent asthma with acute exacerbation Unspecified asthma, with exacerbation Bilateral lower extremity edema Edema BMI 50.0-59.9, adult ([facility]) Body Mass Index 50.0-59.9, adult Gastroesophageal reflux disease without esophagitis Esophageal reflux Other hyperlipidemia EAMON (obstructive sleep apnea) Obstructive sleep apnea (adult) (pediatric) Spinal stenosis, lumbar region, without neurogenic claudication Tobacco use disorder Hypothyroidism, unspecified type Prediabetes Other abnormal glucose History of 2019 novel coronavirus disease (COVID-19) Uncontrolled asthma- Primary [facility]* Diagnosis Gastroesophageal reflux disease without esophagitis- Primary Esophageal reflux Elbow pain, right Pain in joint, upper arm Chest pain, unspecified type Tobacco use disorder Adjustment disorder with depressed mood BMI 50.0-59.9, adult ([facility]) Body Mass Index 50.0-59.9, adult Plantar fasciitis Plantar fascial fibromatosis Pre-operative examination- Primary Preoperative examination, unspecified Trigger thumb, right thumb Adjustment disorder with depressed mood Mild intermittent asthma with acute exacerbation Unspecified asthma, with exacerbation Bilateral lower extremity edema Edema BMI 50.0-59.9, adult ([facility]) Body Mass Index 50.0-59.9, adult Gastroesophageal reflux disease without esophagitis Esophageal reflux Other hyperlipidemia EAMON (obstructive sleep apnea) Obstructive sleep apnea (adult) (pediatric) Spinal stenosis, lumbar region, without neurogenic claudication Tobacco use disorder Hypothyroidism, unspecified type Prediabetes Other abnormal glucose History of 2019 novel coronavirus disease (COVID-19) Shortness of breath Cough, unspecified type Wheezing Low O2 saturation Abnormal arterial blood gases [facility]* Diagnosis Gastroesophageal reflux disease without esophagitis- Primary Esophageal reflux Elbow pain, right Pain in joint, upper arm Chest pain, unspecified type Tobacco use disorder Adjustment disorder with depressed mood BMI 50.0-59.9, adult ([facility]) Body Mass Index 50.0-59.9, adult Plantar fasciitis Plantar fascial fibromatosis Pre-operative examination- Primary Preoperative examination, unspecified Trigger thumb, right thumb Adjustment disorder with depressed mood Mild intermittent asthma with acute exacerbation Unspecified asthma, with exacerbation Bilateral lower extremity edema Edema BMI 50.0-59.9, adult ([facility]) Body Mass Index 50.0-59.9, adult Gastroesophageal reflux disease without esophagitis Esophageal reflux Other hyperlipidemia EAMON (obstructive sleep apnea) Obstructive sleep apnea (adult) (pediatric) Spinal stenosis, lumbar region, without neurogenic claudication Tobacco use disorder Hypothyroidism, unspecified type Prediabetes Other abnormal glucose History of 2019 novel coronavirus disease (COVID-19) 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 Ulnar neuropathy at elbow of right upper extremity [facility]* Diagnosis Gastroesophageal reflux disease without esophagitis- Primary Esophageal reflux Elbow pain, right Pain in joint, upper arm Chest pain, unspecified type Tobacco use disorder Adjustment disorder with depressed mood BMI 50.0-59.9, adult ([facility]) Body Mass Index 50.0-59.9, adult Plantar fasciitis Plantar fascial fibromatosis Pre-operative examination- Primary Preoperative examination, unspecified Trigger thumb, right thumb Adjustment disorder with depressed mood Mild intermittent asthma with acute exacerbation Unspecified asthma, with exacerbation Bilateral lower extremity edema Edema BMI 50.0-59.9, adult ([facility]) Body Mass Index 50.0-59.9, adult Gastroesophageal reflux disease without esophagitis Esophageal reflux Other hyperlipidemia EAMON (obstructive sleep apnea) Obstructive sleep apnea (adult) (pediatric) Spinal stenosis, lumbar region, without neurogenic claudication Tobacco use disorder Hypothyroidism, unspecified type Prediabetes Other abnormal glucose History of 2019 novel coronavirus disease (COVID-19) 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 ([facility])- Primary Aspergillosis EAMON (obstructive sleep apnea) Obstructive sleep apnea (adult) (pediatric) Uncontrolled asthma documented in this encounter [facility] note* Diagnosis Gastroesophageal reflux disease without esophagitis- Primary Esophageal reflux Elbow pain, right Pain in joint, upper arm Chest pain, unspecified type Tobacco use disorder Adjustment disorder with depressed mood BMI 50.0-59.9, adult ([facility]) Body Mass Index 50.0-59.9, adult Plantar fasciitis Plantar fascial fibromatosis Pre-operative examination- Primary Preoperative examination, unspecified Trigger thumb, right thumb Adjustment disorder with depressed mood Mild intermittent asthma with acute exacerbation Unspecified asthma, with exacerbation Bilateral lower extremity edema Edema BMI 50.0-59.9, adult ([facility]) Body Mass Index 50.0-59.9, adult Gastroesophageal reflux disease without esophagitis Esophageal reflux Other hyperlipidemia EAMON (obstructive sleep apnea) Obstructive sleep apnea (adult) (pediatric) Spinal stenosis, lumbar region, without neurogenic claudication Tobacco use disorder Hypothyroidism, unspecified type Prediabetes Other abnormal glucose History of 2019 novel coronavirus disease (COVID-19) Bilateral lower extremity edema Edema [facility]* Diagnosis Gastroesophageal reflux disease without esophagitis- Primary Esophageal reflux Elbow pain, right Pain in joint, upper arm Chest pain, unspecified type Tobacco use disorder Adjustment disorder with depressed mood BMI 50.0-59.9, adult ([facility]) Body Mass Index 50.0-59.9, adult Plantar fasciitis Plantar fascial fibromatosis Pre-operative examination- Primary Preoperative examination, unspecified Trigger thumb, right thumb Adjustment disorder with depressed mood Mild intermittent asthma with acute exacerbation Unspecified asthma, with exacerbation Bilateral lower extremity edema Edema BMI 50.0-59.9, adult ([facility]) Body Mass Index 50.0-59.9, adult Gastroesophageal reflux disease without esophagitis Esophageal reflux Other hyperlipidemia EAMON (obstructive sleep apnea) Obstructive sleep apnea (adult) (pediatric) Spinal stenosis, lumbar region, without neurogenic claudication Tobacco use disorder Hypothyroidism, unspecified type Prediabetes Other abnormal glucose History of 2019 novel coronavirus disease (COVID-19) Skin infection- Primary Unspecified local infection of skin and subcutaneous tissue documented in this encounter [facility] note* Diagnosis Gastroesophageal reflux disease without esophagitis- Primary Esophageal reflux Elbow pain, right Pain in joint, upper arm Chest pain, unspecified type Tobacco use disorder Adjustment disorder with depressed mood BMI 50.0-59.9, adult ([facility]) Body Mass Index 50.0-59.9, adult Plantar fasciitis Plantar fascial fibromatosis Pre-operative examination- Primary Preoperative examination, unspecified Trigger thumb, right thumb Adjustment disorder with depressed mood Mild intermittent asthma with acute exacerbation Unspecified asthma, with exacerbation Bilateral lower extremity edema Edema BMI 50.0-59.9, adult ([facility]) Body Mass Index 50.0-59.9, adult Gastroesophageal reflux disease without esophagitis Esophageal reflux Other hyperlipidemia EAMON (obstructive sleep apnea) Obstructive sleep apnea (adult) (pediatric) Spinal stenosis, lumbar region, without neurogenic claudication Tobacco use disorder Hypothyroidism, unspecified type Prediabetes Other abnormal glucose History of 2019 novel coronavirus disease (COVID-19) Boil- Primary Carbuncle and furuncle of unspecified site documented in this encounter [facility] note* Diagnosis Gastroesophageal reflux disease without esophagitis- Primary Esophageal reflux Elbow pain, right Pain in joint, upper arm Chest pain, unspecified type Tobacco use disorder Adjustment disorder with depressed mood BMI 50.0-59.9, adult ([facility]) Body Mass Index 50.0-59.9, adult Plantar fasciitis Plantar fascial fibromatosis Pre-operative examination- Primary Preoperative examination, unspecified Trigger thumb, right thumb Adjustment disorder with depressed mood Mild intermittent asthma with acute exacerbation Unspecified asthma, with exacerbation Bilateral lower extremity edema Edema BMI 50.0-59.9, adult ([facility]) Body Mass Index 50.0-59.9, adult Gastroesophageal reflux disease without esophagitis Esophageal reflux Other hyperlipidemia EAMON (obstructive sleep apnea) Obstructive sleep apnea (adult) (pediatric) Spinal stenosis, lumbar region, without neurogenic claudication Tobacco use disorder Hypothyroidism, unspecified type Prediabetes Other abnormal glucose History of 2019 novel coronavirus disease (COVID-19) Abscess packing removal- Primary Encounter for change or removal of nonsurgical wound dressing documented in this encounter [facility] note* Diagnosis Gastroesophageal reflux disease without esophagitis- Primary Esophageal reflux Elbow pain, right Pain in joint, upper arm Chest pain, unspecified type Tobacco use disorder Adjustment disorder with depressed mood BMI 50.0-59.9, adult ([facility]) Body Mass Index 50.0-59.9, adult Plantar fasciitis Plantar fascial fibromatosis Pre-operative examination- Primary Preoperative examination, unspecified Trigger thumb, right thumb Adjustment disorder with depressed mood Mild intermittent asthma with acute exacerbation Unspecified asthma, with exacerbation Bilateral lower extremity edema Edema BMI 50.0-59.9, adult ([facility]) Body Mass Index 50.0-59.9, adult Gastroesophageal reflux disease without esophagitis Esophageal reflux Other hyperlipidemia EAMON (obstructive sleep apnea) Obstructive sleep apnea (adult) (pediatric) Spinal stenosis, lumbar region, without neurogenic claudication Tobacco use disorder Hypothyroidism, unspecified type Prediabetes Other abnormal glucose History of 2019 novel coronavirus disease (COVID-19) 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 ([facility])- Primary Aspergillosis Mild intermittent asthma with acute exacerbation Unspecified asthma, with exacerbation Controlled type 2 diabetes mellitus without complication, without long-term current use of insulin ([facility]) Gastroesophageal reflux disease without esophagitis Esophageal reflux Morbid obesity with BMI of 50.0-59.9, adult ([facility]) Morbid obesity Encounter for immunization Need for other specified prophylactic vaccination against single bacterial disease Essential hypertension Unspecified essential hypertension Other hyperlipidemia documented in this encounter [facility] note* Diagnosis Gastroesophageal reflux disease without esophagitis- Primary Esophageal reflux Elbow pain, right Pain in joint, upper arm Chest pain, unspecified type Tobacco use disorder Adjustment disorder with depressed mood BMI 50.0-59.9, adult ([facility]) Body Mass Index 50.0-59.9, adult Plantar fasciitis Plantar fascial fibromatosis Pre-operative examination- Primary Preoperative examination, unspecified Trigger thumb, right thumb Adjustment disorder with depressed mood Mild intermittent asthma with acute exacerbation Unspecified asthma, with exacerbation Bilateral lower extremity edema Edema BMI 50.0-59.9, adult ([facility]) Body Mass Index 50.0-59.9, adult Gastroesophageal reflux disease without esophagitis Esophageal reflux Other hyperlipidemia EAMON (obstructive sleep apnea) Obstructive sleep apnea (adult) (pediatric) Spinal stenosis, lumbar region, without neurogenic claudication Tobacco use disorder Hypothyroidism, unspecified type Prediabetes Other abnormal glucose History of 2019 novel coronavirus disease (COVID-19) Cough, unspecified type documented in this encounter [facility] note* Diagnosis Gastroesophageal reflux disease without esophagitis- Primary Esophageal reflux Elbow pain, right Pain in joint, upper arm Chest pain, unspecified type Tobacco use disorder Adjustment disorder with depressed mood BMI 50.0-59.9, adult ([facility]) Body Mass Index 50.0-59.9, adult Plantar fasciitis Plantar fascial fibromatosis Pre-operative examination- Primary Preoperative examination, unspecified Trigger thumb, right thumb Adjustment disorder with depressed mood Mild intermittent asthma with acute exacerbation Unspecified asthma, with exacerbation Bilateral lower extremity edema Edema BMI 50.0-59.9, adult ([facility]) Body Mass Index 50.0-59.9, adult Gastroesophageal reflux disease without esophagitis Esophageal reflux Other hyperlipidemia EAMON (obstructive sleep apnea) Obstructive sleep apnea (adult) (pediatric) Spinal stenosis, lumbar region, without neurogenic claudication Tobacco use disorder Hypothyroidism, unspecified type Prediabetes Other abnormal glucose History of 2019 novel coronavirus disease (COVID-19) Cough, unspecified type documented in this encounter [facility] note* Diagnosis Gastroesophageal reflux disease without esophagitis- Primary Esophageal reflux Elbow pain, right Pain in joint, upper arm Chest pain, unspecified type Tobacco use disorder Adjustment disorder with depressed mood BMI 50.0-59.9, adult ([facility]) Body Mass Index 50.0-59.9, adult Plantar fasciitis Plantar fascial fibromatosis Pre-operative examination- Primary Preoperative examination, unspecified Trigger thumb, right thumb Adjustment disorder with depressed mood Mild intermittent asthma with acute exacerbation Unspecified asthma, with exacerbation Bilateral lower extremity edema Edema BMI 50.0-59.9, adult (HCC) Body Mass Index 50.0-59.9, adult Gastroesophageal reflux disease without esophagitis Esophageal reflux Other hyperlipidemia EAMON (obstructive sleep apnea) Obstructive sleep apnea (adult) (pediatric) Spinal stenosis, lumbar region, without neurogenic claudication Tobacco use disorder Hypothyroidism, unspecified type Prediabetes Other abnormal glucose History of 2019 novel coronavirus disease (COVID-19) Mild persistent asthma without complication- Primary Unspecified asthma Morbid obesity (HCC) Morbid obesity Chronic hypoxemic respiratory failure ([facility]) Chronic respiratory failure Lung nodule Solitary pulmonary nodule Cigarette smoker Tobacco use disorder [facility] Diagnosis Gastroesophageal reflux disease without esophagitis- Primary Esophageal reflux Elbow pain, right Pain in joint, upper arm Chest pain, unspecified type Tobacco use disorder Adjustment disorder with depressed mood BMI 50.0-59.9, adult ([facility]) Body Mass Index 50.0-59.9, adult Plantar fasciitis Plantar fascial fibromatosis Pre-operative examination- Primary Preoperative examination, unspecified Trigger thumb, right thumb Adjustment disorder with depressed mood Mild intermittent asthma with acute exacerbation Unspecified asthma, with exacerbation Bilateral lower extremity edema Edema BMI 50.0-59.9, adult ([facility]) Body Mass Index 50.0-59.9, adult Gastroesophageal reflux disease without esophagitis Esophageal reflux Other hyperlipidemia EAMON (obstructive sleep apnea) Obstructive sleep apnea (adult) (pediatric) Spinal stenosis, lumbar region, without neurogenic claudication Tobacco use disorder Hypothyroidism, unspecified type Prediabetes Other abnormal glucose History of 2019 novel coronavirus disease (COVID-19) Controlled type 2 diabetes mellitus without complication, without long-term current use of insulin ([facility])- Primary Morbid obesity with BMI of 50.0-59.9, adult ([facility]) Morbid obesity [facility] Diagnosis Gastroesophageal reflux disease without esophagitis- Primary Esophageal reflux Elbow pain, right Pain in joint, upper arm Chest pain, unspecified type Tobacco use disorder Adjustment disorder with depressed mood BMI 50.0-59.9, adult ([facility]) Body Mass Index 50.0-59.9, adult Plantar fasciitis Plantar fascial fibromatosis Pre-operative examination- Primary Preoperative examination, unspecified Trigger thumb, right thumb Adjustment disorder with depressed mood Mild intermittent asthma with acute exacerbation Unspecified asthma, with exacerbation Bilateral lower extremity edema Edema BMI 50.0-59.9, adult ([facility]) Body Mass Index 50.0-59.9, adult Gastroesophageal reflux disease without esophagitis Esophageal reflux Other hyperlipidemia EAMON (obstructive sleep apnea) Obstructive sleep apnea (adult) (pediatric) Spinal stenosis, lumbar region, without neurogenic claudication Tobacco use disorder Hypothyroidism, unspecified type Prediabetes Other abnormal glucose History of 2019 novel coronavirus disease (COVID-19) URI, acute- Primary Acute upper respiratory infections of unspecified site Acute cough Acute cough documented in this encounter [facility] note* Diagnosis Gastroesophageal reflux disease without esophagitis- Primary Esophageal reflux Elbow pain, right Pain in joint, upper arm Chest pain, unspecified type Tobacco use disorder Adjustment disorder with depressed mood BMI 50.0-59.9, adult ([facility]) Body Mass Index 50.0-59.9, adult Plantar fasciitis Plantar fascial fibromatosis Pre-operative examination- Primary Preoperative examination, unspecified Trigger thumb, right thumb Adjustment disorder with depressed mood Mild intermittent asthma with acute exacerbation Unspecified asthma, with exacerbation Bilateral lower extremity edema Edema BMI 50.0-59.9, adult ([facility]) Body Mass Index 50.0-59.9, adult Gastroesophageal reflux disease without esophagitis Esophageal reflux Other hyperlipidemia EAMON (obstructive sleep apnea) Obstructive sleep apnea (adult) (pediatric) Spinal stenosis, lumbar region, without neurogenic claudication Tobacco use disorder Hypothyroidism, unspecified type Prediabetes Other abnormal glucose History of 2019 novel coronavirus disease (COVID-19) Acute cough documented in this encounter [facility] note* Diagnosis Gastroesophageal reflux disease without esophagitis- Primary Esophageal reflux Elbow pain, right Pain in joint, upper arm Chest pain, unspecified type Tobacco use disorder Adjustment disorder with depressed mood BMI 50.0-59.9, adult ([facility]) Body Mass Index 50.0-59.9, adult Plantar fasciitis Plantar fascial fibromatosis Pre-operative examination- Primary Preoperative examination, unspecified Trigger thumb, right thumb Adjustment disorder with depressed mood Mild intermittent asthma with acute exacerbation Unspecified asthma, with exacerbation Bilateral lower extremity edema Edema BMI 50.0-59.9, adult ([facility]) Body Mass Index 50.0-59.9, adult Gastroesophageal reflux disease without esophagitis Esophageal reflux Other hyperlipidemia EAMON (obstructive sleep apnea) Obstructive sleep apnea (adult) (pediatric) Spinal stenosis, lumbar region, without neurogenic claudication Tobacco use disorder Hypothyroidism, unspecified type Prediabetes Other abnormal glucose History of 2019 novel coronavirus disease (COVID-19) Controlled type 2 diabetes mellitus without complication, without long-term current use of insulin ([facility])- Primary Hypothyroidism, unspecified type documented in this encounter [facility] note* Diagnosis Gastroesophageal reflux disease without esophagitis- Primary Esophageal reflux Elbow pain, right Pain in joint, upper arm Chest pain, unspecified type Tobacco use disorder Adjustment disorder with depressed mood BMI 50.0-59.9, adult ([facility]) Body Mass Index 50.0-59.9, adult Plantar fasciitis Plantar fascial fibromatosis Pre-operative examination- Primary Preoperative examination, unspecified Trigger thumb, right thumb Adjustment disorder with depressed mood Mild intermittent asthma with acute exacerbation (HCC) Unspecified asthma, with exacerbation Bilateral lower extremity edema Edema BMI 50.0-59.9, adult ([facility]) Body Mass Index 50.0-59.9, adult Gastroesophageal reflux disease without esophagitis Esophageal reflux Other hyperlipidemia EAMON (obstructive sleep apnea) Obstructive sleep apnea (adult) (pediatric) Spinal stenosis, lumbar region, without neurogenic claudication Tobacco use disorder Hypothyroidism, unspecified type Prediabetes Other abnormal glucose History of 2019 novel coronavirus disease (COVID-19) Chest pain, unspecified type Dyspnea, unspecified type Wheezing documented in this encounter [facility] note* Diagnosis Gastroesophageal reflux disease without esophagitis- Primary Esophageal reflux Elbow pain, right Pain in joint, upper arm Chest pain, unspecified type Tobacco use disorder Adjustment disorder with depressed mood BMI 50.0-59.9, adult ([facility]) Body Mass Index 50.0-59.9, adult Plantar fasciitis Plantar fascial fibromatosis Pre-operative examination- Primary Preoperative examination, unspecified Trigger thumb, right thumb Adjustment disorder with depressed mood Mild intermittent asthma with acute exacerbation (HCC) Unspecified asthma, with exacerbation Bilateral lower extremity edema Edema BMI 50.0-59.9, adult ([facility]) Body Mass Index 50.0-59.9, adult Gastroesophageal reflux disease without esophagitis Esophageal reflux Other hyperlipidemia EAMON (obstructive sleep apnea) Obstructive sleep apnea (adult) (pediatric) Spinal stenosis, lumbar region, without neurogenic claudication Tobacco use disorder Hypothyroidism, unspecified type Prediabetes Other abnormal glucose History of 2019 novel coronavirus disease (COVID-19) Chest pain, unspecified type- Primary Dyspnea, unspecified type Wheezing Subacute cough Cough Acute pain of both shoulders History of pulmonary aspergillosis Personal history of other infectious and parasitic disease Tobacco dependence due to cigarettes Gastroesophageal reflux disease without esophagitis Esophageal reflux Chest pain, unspecified type Dyspnea, unspecified type Wheezing documented in this encounter [facility] note* Diagnosis Gastroesophageal reflux disease without esophagitis- Primary Esophageal reflux Elbow pain, right Pain in joint, upper arm Chest pain, unspecified type Tobacco use disorder Adjustment disorder with depressed mood BMI 50.0-59.9, adult ([facility]) Body Mass Index 50.0-59.9, adult Plantar fasciitis Plantar fascial fibromatosis Pre-operative examination- Primary Preoperative examination, unspecified Trigger thumb, right thumb Adjustment disorder with depressed mood Mild intermittent asthma with acute exacerbation (HCC) Unspecified asthma, with exacerbation Bilateral lower extremity edema Edema BMI 50.0-59.9, adult ([facility]) Body Mass Index 50.0-59.9, adult Gastroesophageal reflux disease without esophagitis Esophageal reflux Other hyperlipidemia EAMON (obstructive sleep apnea) Obstructive sleep apnea (adult) (pediatric) Spinal stenosis, lumbar region, without neurogenic claudication Tobacco use disorder Hypothyroidism, unspecified type Prediabetes Other abnormal glucose History of 2019 novel coronavirus disease (COVID-19) Hyperlipidemia Other and unspecified hyperlipidemia documented in this encounter [facility] note* Diagnosis Gastroesophageal reflux disease without esophagitis- Primary Esophageal reflux Elbow pain, right Pain in joint, upper arm Chest pain, unspecified type Tobacco use disorder Adjustment disorder with depressed mood BMI 50.0-59.9, adult ([facility]) Body Mass Index 50.0-59.9, adult Plantar fasciitis Plantar fascial fibromatosis Pre-operative examination- Primary Preoperative examination, unspecified Trigger thumb, right thumb Adjustment disorder with depressed mood Mild intermittent asthma with acute exacerbation (HCC) Unspecified asthma, with exacerbation Bilateral lower extremity edema Edema BMI 50.0-59.9, adult ([facility]) Body Mass Index 50.0-59.9, adult Gastroesophageal reflux disease without esophagitis Esophageal reflux Other hyperlipidemia EAMON (obstructive sleep apnea) Obstructive sleep apnea (adult) (pediatric) Spinal stenosis, lumbar region, without neurogenic claudication Tobacco use disorder Hypothyroidism, unspecified type Prediabetes Other abnormal glucose History of 2019 novel coronavirus disease (COVID-19) Chest pain, unspecified type- Primary ERNANDEZ (dyspnea on exertion) Other dyspnea and respiratory abnormality SOB (shortness of breath) Shortness of breath Elevated d-dimer Abnormal coagulation profile documented in this encounter [facility] note* Diagnosis Gastroesophageal reflux disease without esophagitis- Primary Esophageal reflux Elbow pain, right Pain in joint, upper arm Chest pain, unspecified type Tobacco use disorder Adjustment disorder with depressed mood BMI 50.0-59.9, adult ([facility]) Body Mass Index 50.0-59.9, adult Plantar fasciitis Plantar fascial fibromatosis Pre-operative examination- Primary Preoperative examination, unspecified Trigger thumb, right thumb Adjustment disorder with depressed mood Mild intermittent asthma with acute exacerbation (HCC) Unspecified asthma, with exacerbation Bilateral lower extremity edema Edema BMI 50.0-59.9, adult ([facility]) Body Mass Index 50.0-59.9, adult Gastroesophageal reflux disease without esophagitis Esophageal reflux Other hyperlipidemia EAMON (obstructive sleep apnea) Obstructive sleep apnea (adult) (pediatric) Spinal stenosis, lumbar region, without neurogenic claudication Tobacco use disorder Hypothyroidism, unspecified type Prediabetes Other abnormal glucose History of 2019 novel coronavirus disease (COVID-19) Chest pain, unspecified type- Primary Mild intermittent asthma with acute exacerbation (HCC) Unspecified asthma, with exacerbation Dyspnea, unspecified type Wheezing Other hyperlipidemia Tobacco use Tobacco use disorder Fatigue, unspecified type documented in this encounter [facility] note* Diagnosis Gastroesophageal reflux disease without esophagitis- Primary Esophageal reflux Elbow pain, right Pain in joint, upper arm Chest pain, unspecified type Tobacco use disorder Adjustment disorder with depressed mood BMI 50.0-59.9, adult ([facility]) Body Mass Index 50.0-59.9, adult Plantar fasciitis Plantar fascial fibromatosis Pre-operative examination- Primary Preoperative examination, unspecified Trigger thumb, right thumb Adjustment disorder with depressed mood Mild intermittent asthma with acute exacerbation (HCC) Unspecified asthma, with exacerbation Bilateral lower extremity edema Edema BMI 50.0-59.9, adult ([facility]) Body Mass Index 50.0-59.9, adult Gastroesophageal reflux disease without esophagitis Esophageal reflux Other hyperlipidemia EAMON (obstructive sleep apnea) Obstructive sleep apnea (adult) (pediatric) Spinal stenosis, lumbar region, without neurogenic claudication Tobacco use disorder Hypothyroidism, unspecified type Prediabetes Other abnormal glucose History of 2019 novel coronavirus disease (COVID-19) Controlled type 2 diabetes mellitus without complication, without long-term current use of insulin ([facility]) Morbid obesity with BMI of 50.0-59.9, adult (HCC) Morbid obesity documented in this encounter [facility] note* Diagnosis Gastroesophageal reflux disease without esophagitis- Primary Esophageal reflux Elbow pain, right Pain in joint, upper arm Chest pain, unspecified type Tobacco use disorder Adjustment disorder with depressed mood BMI 50.0-59.9, adult (HCC) Body Mass Index 50.0-59.9, adult Plantar fasciitis Plantar fascial fibromatosis Pre-operative examination- Primary Preoperative examination, unspecified Trigger thumb, right thumb Adjustment disorder with depressed mood Mild intermittent asthma with acute exacerbation (HCC) Unspecified asthma, with exacerbation Bilateral lower extremity edema Edema BMI 50.0-59.9, adult ([facility]) Body Mass Index 50.0-59.9, adult Gastroesophageal reflux disease without esophagitis Esophageal reflux Other hyperlipidemia EAMON (obstructive sleep apnea) Obstructive sleep apnea (adult) (pediatric) Spinal stenosis, lumbar region, without neurogenic claudication Tobacco use disorder Hypothyroidism, unspecified type Prediabetes Other abnormal glucose History of 2019 novel coronavirus disease (COVID-19) Asthma, moderate persistent, poorly-controlled (HCC)- Primary Unspecified asthma Multiple allergies Other allergy, other than to medicinal agents Productive cough Cough Cigarette smoker Tobacco use disorder Morbid obesity (HCC) Morbid obesity Chronic hypoxemic respiratory failure (HCC) Chronic respiratory failure Lung nodule Solitary pulmonary nodule documented in this encounter [facility] note* Diagnosis Gastroesophageal reflux disease without esophagitis- Primary Esophageal reflux Elbow pain, right Pain in joint, upper arm Chest pain, unspecified type Tobacco use disorder Adjustment disorder with depressed mood BMI 50.0-59.9, adult (HCC) Body Mass Index 50.0-59.9, adult Plantar fasciitis Plantar fascial fibromatosis Pre-operative examination- Primary Preoperative examination, unspecified Trigger thumb, right thumb Adjustment disorder with depressed mood Mild intermittent asthma with acute exacerbation (HCC) Unspecified asthma, with exacerbation Bilateral lower extremity edema Edema BMI 50.0-59.9, adult (HCC) Body Mass Index 50.0-59.9, adult Gastroesophageal reflux disease without esophagitis Esophageal reflux Other hyperlipidemia EAMON (obstructive sleep apnea) Obstructive sleep apnea (adult) (pediatric) Spinal stenosis, lumbar region, without neurogenic claudication Tobacco use disorder Hypothyroidism, unspecified type Prediabetes Other abnormal glucose History of 2019 novel coronavirus disease (COVID-19) Rash- Primary Rash and other nonspecific skin eruption Skin infection Unspecified local infection of skin and subcutaneous tissue documented in this encounter [facility] note* Diagnosis Gastroesophageal reflux disease without esophagitis- Primary Esophageal reflux Elbow pain, right Pain in joint, upper arm Chest pain, unspecified type Tobacco use disorder Adjustment disorder with depressed mood BMI 50.0-59.9, adult (HCC) Body Mass Index 50.0-59.9, adult Plantar fasciitis Plantar fascial fibromatosis Pre-operative examination- Primary Preoperative examination, unspecified Trigger thumb, right thumb Adjustment disorder with depressed mood Mild intermittent asthma with acute exacerbation (HCC) Unspecified asthma, with exacerbation Bilateral lower extremity edema Edema BMI 50.0-59.9, adult (HCC) Body Mass Index 50.0-59.9, adult Gastroesophageal reflux disease without esophagitis Esophageal reflux Other hyperlipidemia EAMON (obstructive sleep apnea) Obstructive sleep apnea (adult) (pediatric) Spinal stenosis, lumbar region, without neurogenic claudication Tobacco use disorder Hypothyroidism, unspecified type Prediabetes Other abnormal glucose History of 2019 novel coronavirus disease (COVID-19) Encounter for screening mammogram for breast cancer documented in this encounter [facility] note* Diagnosis Gastroesophageal reflux disease without esophagitis- Primary Esophageal reflux Elbow pain, right Pain in joint, upper arm Chest pain, unspecified type Tobacco use disorder Adjustment disorder with depressed mood BMI 50.0-59.9, adult (HCC) Body Mass Index 50.0-59.9, adult Plantar fasciitis Plantar fascial fibromatosis Pre-operative examination- Primary Preoperative examination, unspecified Trigger thumb, right thumb Adjustment disorder with depressed mood Mild intermittent asthma with acute exacerbation (HCC) Unspecified asthma, with exacerbation Bilateral lower extremity edema Edema BMI 50.0-59.9, adult (HCC) Body Mass Index 50.0-59.9, adult Gastroesophageal reflux disease without esophagitis Esophageal reflux Other hyperlipidemia EAMON (obstructive sleep apnea) Obstructive sleep apnea (adult) (pediatric) Spinal stenosis, lumbar region, without neurogenic claudication Tobacco use disorder Hypothyroidism, unspecified type Prediabetes Other abnormal glucose History of 2019 novel coronavirus disease (COVID-19) Left breast abscess- Primary Inflammatory disease of breast Cellulitis of skin Cellulitis and abscess of unspecified site documented in this encounter [facility] Discharge instructions No data available for this section [facility] Progress note No data available for this section [facility] Robin Reason for referral (narrative)* Diagnostic Procedure Only (Routine) - Pending Review Specialty Diagnoses / Procedures Referred By Sophia douglass Referred To Contact [facility] Diagnoses Encounter for screening mammogram for breast cancer Procedures JET SCREENING SCREENING MAMMOGRAPHY BI 2-VIEW BREAST INC Babar Islas MD [address] [place] [address] [facility] [address] [place] [address] Referral ID Status Reason Start Date Expiration Date Visits Requested Visits Authorized [id number] Pending Review Auto-Generat ed Referral 01/28/2022 02/27/2023 1 1 [facility] for referral (narrative)* Diagnostic Procedure Only (Routine) - Pending Review Specialty Diagnoses / Procedures Referred By Sophia douglass Referred To Contact [facility] Diagnoses RUQ pain Nausea Epigastric pain Diarrhea, unspecified type Procedures US ABD RT UPPER QUADRANT US ABDOMINAL REAL TIME W/IMAGE LIMITED Caryn Lowery APRN.CNP [address] [place] [address] [facility] Referral ID Status Reason Start Date Expiration Date Visits Requested Visits Authorized [id number] Pending Review Auto-Generat ed Referral 03/25/2022 04/24/2023 1 1 [facility] for referral (narrative)* Outpatient Procedure (Routine) - Pending Review Specialty Diagnoses / Procedures Referred By Sophia douglass Referred To Contact [facility] Diagnoses Nausea Epigastric pain Decreased appetite Procedures EGD DIAGNOSTIC ESOPHAGOGASTRODUODENOS COPY TRANSORAL DIAGNOSTIC Kelli Mendenhall PA-C [address] [place] [address] [facility] [address] [place] [id number] Referral ID Status Reason Start Date Expiration Date Visits Requested Visits Authorized [id number] Pending Review Auto-Generat ed Referral 06/03/2022 06/03/2023 1 1 [facility] for referral (narrative)* Outpatient Procedure (Routine) - Pending Review Specialty Diagnoses / Procedures Referred By Contac t Referred To Contact [facility] Diagnoses Epigastric pain Nausea and vomiting, unspecified vomiting type Procedures EGD DIAGNOSTIC ESOPHAGOGASTRODUODENOSC OPY TRANSORAL DIAGNOSTIC Jared Lauren PA-C [address] [place] [address] [place] [address] [address] Referral ID Status Reason Start Date Expiration Date Visits Requested Visits Authorized [id number] Pending Review Auto-Generat ed Referral 06/17/2022 06/17/2023 1 1 * Medication Prior Authorization - Closed Specialty Diagnoses / Procedures Referred By Contac t Referred To Contact Diagnoses Rectal bleeding Diarrhea, unspecified type Jared Lauren PA-C [address] [place] [address] [place] [address] Referral ID Status Reason Start Date Expiration Date Visits Re quested Visits Authorized [id number] Closed 1 1 * Outpatient Procedure (Routine) - Pending Review Specialty Diagnoses / Procedures Referred By Contac t Referred To Contact [facility] Diagnoses Rectal bleeding Diarrhea, unspecified type Procedures COLONOSCOPY DIAGNOSTIC COLONOSCOPY FLX DX W/COLLJ SPEC WHEN PFRMD Jared Lauren PA-C [address] [place] [address] [place] [address] [address] Referral ID Status Reason Start Date Expiration Date Visits Requested Visits Authorized [id number] Pending Review Auto-Generat ed Referral 06/17/2022 06/17/2023 1 1 [facility] for referral (narrative)* Outpatient Procedure (Routine) - Pending Review Specialty Diagnoses / Procedures Referred By Contac t Referred To Contact [facility] Diagnoses Shortness of breath Chest pain, unspecified type Procedures ECHO ECHO TTHRC R-T 2D W/WOM-MODE COMPL SPEC&COLR D Caryn Lowery APRN.ICT SUPPORT ENGINEER [address] [place] [address] [facility] [place] [address] [place] [id number] Referral ID Status Reason Start Date Expiration Date Visits Requested Visits Authorized [id number] Pending Review Auto-Generat ed Referral 08/24/2022 08/24/2023 1 1 * Outpatient Procedure (Routine) - Authorized Specialty Diagnoses / Procedures Referred By Contac t Referred To Contact [facility] [place] Diagnoses Left leg swelling Left leg pain Procedures US LEG VEIN DVT UNL VAS LAB DUP-SCAN XTR VEINS UNILATERAL/LIMITED STUDY Caryn Lowery APRN.ICT SUPPORT ENGINEER [address] [place] [address] [facility] [address] [place] [id number] Referral ID Status Reason Start Date Expiration Date Visits Requested Visits Authorized [id number] Authorized Auto-Generat ed Referral 08/24/2022 08/24/2023 1 1 [facility] for referral (narrative)* Diagnostic Procedure Only (Routine) - Pending Review Specialty Diagnoses / Procedures Referred By Contac t Referred To Contact BR IMAGING Diagnoses Encounter for screening mammogram for breast cancer Procedures JET SCREENING SCREENING MAMMOGRAPHY BI 2-VIEW BREAST INC Babar Islas MD [address] [place] [address] Br Imaging [address] [place] [address] Referral ID Status Reason Start Date Expiration Date Visits Requested Visits Authorized [id number] Pending Review Auto-Generat ed Referral 12/30/2022 01/29/2024 1 1 [facility] for referral (narrative)* Diagnostic Procedure Only (Routine) - Closed Specialty Diagnoses / Procedures Referred By Contac t Referred To Contact US IMAGING Diagnoses RUQ pain Nausea Epigastric pain Diarrhea, unspecified type Procedures US ABD RT UPPER QUADRANT US ABDOMINAL REAL TIME W/IMAGE LIMITED Caryn Lowery APRN.ICT SUPPORT ENGINEER [address] [place] [address] [place] [address] Referral ID Status Reason Start Date Expiration Date V isits Requested Visits Authorized [id number] Closed Auto-Generate d Referral 03/25/2022 04/24/2023 1 1 [facility] for referral (narrative)* Diagnostic Procedure Only (Urgent) - Authorized Specialty Diagnoses / Procedures Referred By Edwardac t Referred To Contact US IMAGING Diagnoses Epigastric pain Vomiting and diarrhea Procedures US ABD RIGHT UPPER QUADRANT US ABDOMINAL REAL TIME W/IMAGE LIMITED Caryn Lowery APRN.ICT SUPPORT ENGINEER [address] [place] [address] [place] [address] Referral ID Status Reason Start Date Expiration Date Visits Requested Visits Authorized [id number] Authorized Auto-Generat ed Referral 11/15/2023 12/14/2024 1 1 [facility] for referral (narrative)* Diagnostic Procedure Only (Routine) - New Request Specialty Diagnoses / Procedures Referred By Contac t Referred To Contact BR IMAG[facility] Diagnoses Encounter for screening mammogram for breast cancer Procedures JET SCREENING W ROXANNA SCREENING DIGITAL BREAST TOMOSYNTHESIS BI SCREENING MAMMOGRAPHY BI 2-VIEW BREAST INC Babar Islas MD [address] [place] [address] Br Imaging [address] [place] [address] Referral ID Status Reason Start Date Expiration Date Visits Requested Visits Authorized [id number] New Request Auto-Generat ed Referral 12/01/2023 12/30/2024 1 1 [facility] for referral (narrative)* Outpatient Procedure (Routine) - New Request Specialty Diagnoses / Procedures Referred By Edwardac t Referred To [facility] Diagnoses Chest pain, unspecified type Shortness of breath Palpitations Procedures ECG COMPLETE ECG ROUTINE ECG W/LEAST 12 LDS W/I&R Caryn Lowery APRN.ICT SUPPORT ENGINEER [address] [place] [address] [facility] [place] [address] [place] [address] Referral ID Status Reason Start Date Expiration Date Visits Requested Visits Authorized [id number] New Request Auto-Generat ed Referral 01/03/2024 01/02/2025 1 1 [facility] for referral (narrative)* Diagnostic Procedure Only (Routine) - New Request Specialty Diagnoses / Procedures Referred By Contac t Referred To Contact XR IMAGING Diagnoses Right knee pain, unspecified chronicity Procedures XR KNEE GENERAL 4V AP BOTH/PA BOTH/LAT/MERC RIGHT RADIOLOGIC EXAM KNEE COMPLETE 4/MORE VIEWS Duran Blunt MD [address] [facility] [place] [address] [place] [address] Referral ID Status Reason Start Date Expiration Date Visits Requested Visits Authorized [id number] New Request Auto-Generat ed Referral 01/19/2024 02/17/2025 1 1 [facility] for referral (narrative)* Diagnostic Procedure Only (Urgent) - Closed Specialty Diagnoses / Procedures Referred By Edwardac t Referred To Contact US IMAGING Diagnoses Epigastric pain Vomiting and diarrhea Procedures US ABD RIGHT UPPER QUADRANT US ABDOMINAL REAL TIME W/IMAGE LIMITED Caryn Lowery APRN.ICT SUPPORT ENGINEER [address] [place] [address] [place] [address] Referral ID Status Reason Start Date Expiration Date V isits Requested Visits Authorized [id number] Closed Auto-Generate d Referral 11/15/2023 12/14/2024 1 1 [facility] for referral (narrative)* Diagnostic Procedure Only (Routine) - Closed Specialty Diagnoses / Procedures Referred By Contac t Referred To Contact XR IMAGING Diagnoses Acute pain of right knee Procedures XR KNEE GENERAL 4V AP BOTH/PA BOTH/LAT/MERC RIGHT RADIOLOGIC EXAM KNEE COMPLETE 4/MORE VIEWS Angelika Osborne APRN.ICT SUPPORT ENGINEER [address] [place] [address] [place] [address] Referral ID Status Reason Start Date Expiration Date V isits Requested Visits Authorized [id number] Closed Auto-Generate d Referral 05/13/2022 06/12/2023 1 1 [facility] for referral (narrative)* Outpatient Procedure (Routine) - New Request Specialty Diagnoses / Procedures Referred By Contac t Referred To Contact [facility] Diagnoses 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 right upper extremity Procedures EMG(NEURO/NI) NERVE CONDUCTION STUDIES 9-10 STUDIES Duran Blunt MD [address] [place] [address] [facility] [place] [address] [place] [id number] Referral ID Status Reason Start Date Expiration Date Visits Requested Visits Authorized [id number] New Request Auto-Generat ed Referral 03/07/2025 1 1 [facility] for visit Narrative* Diagnostic Procedure Only (Urgent) - Closed Specialty Diagnoses / Procedures Referred By Contac t Referred To Contact US IMAGING Diagnoses Epigastric pain Vomiting and diarrhea Procedures US ABD RIGHT UPPER QUADRANT US ABDOMINAL REAL TIME W/IMAGE LIMITED Caryn Lowery APRN.ICT SUPPORT ENGINEER [address] [place] [address] [place] [address] Referral ID Status Reason Start Date Expiration Date V isits Requested Visits Authorized [id number] Closed Auto-Generate d Referral 11/15/2023 12/14/2024 1 1 [facility] for visit Narrative* Diagnostic Procedure Only (Routine) - Closed Specialty Diagnoses / Procedures Referred By Contstefan t Referred To Contact XR IMAGING Diagnoses Acute pain of right knee Procedures XR KNEE GENERAL 4V AP BOTH/PA BOTH/LAT/MERC RIGHT RADIOLOGIC EXAM KNEE COMPLETE 4/MORE VIEWS Angelika Osborne, LILI.ICT SUPPORT ENGINEER [address] [facility] [place] [address] [place] [address] Referral ID Status Reason Start Date Expiration Date V isits Requested Visits Authorized [id number] Closed Auto-Generate d Referral 05/13/2022 06/12/2023 1 1 [facility] note* Geraldine Calabrese: PERFORM Event Display: Patient Summary Documents Authored Date: [id number] [facility] Summary Purpose Family History Relationship Condition Age at Onset Recorded Date/T kathleen Not Specified Malignant neoplasm of cervix Unknown Arthritis Unknown Depression Unknown mother Cardiac disease Unknown father Hypertension Unknown Advance Directives Documents on File Type Date Recorded Patient Evening Sitter Expl anation Advance Directive(s) Advance Directive(s) 07/02/2021 3:42 PM Advance Directive(s) 07/12/2019 3:17 PM Advance Directive(s) 07/12/2019 3:21 PM Advance Directive(s) 05/18/2018 12:00 PM Advance Directive(s) 04/15/2018 5:08 PM Advance Directive(s) 04/02/2017 10:58 AM Advance Directive(s) 03/02/2017 8:52 AM Advance Directive(s) 02/26/2017 1:59 PM Advance Directive Response Recorded Date/ Time Living Will No July 27, 2022 3:22pm Power of Bookbinder Apprentice No July 27 3:22pm Advance Directive Response Recorded Date/ Time Living Will No July 27, 2022 2:22pm Power of Bookbinder Apprentice No July 27 2:22pm Reason for Referral Specialty Diagnoses / Procedures Referred By Sophia douglass Referred To Contact Gastroenterology Diagnoses Left lower quadrant abdominal pain Nausea Diarrhea, unspecified type Procedures CONSULT TO GASTROENTEROLOGY OFFICE/OUTPATIENT NEW HIGH MDM 60-74 MINUTES Older, 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, 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 DRAFTSMAN.ICT SUPPORT ENGINEER [address] [place] [address] Referral ID Status Reason Start Date Expiration Date Visits Requested Visits Authorized [id number] Authorized PCP Requested Referral 2 04/08/2023 1 1 Specialty Diagnoses / Procedures Referred By Contac t Referred To Contact CT IMAGING Diagnoses Left lower quadrant abdominal pain Procedures CT ABD/PEL W IVCON CT ABD & PELVIS W/CONTRAST Caryn Lowery APRN.ICT SUPPORT ENGINEER [address] [place] [address] Ct Imaging Referral ID Status Reason Start Date Expiration Date Visits Requested Visits Authorized [id number] Authorized Auto-Generat ed Referral 2 05/08/2022 1 1 Specialty Diagnoses / Procedures Referred By Contac t Referred To Contact Nutrition Diagnoses Controlled type 2 diabetes mellitus without complication, without long-term current use of insulin ([facility]) Class 3 drug-induced obesity with serious comorbidity and body mass index (BMI) of 50.0 to 59.9 in adult (HCC) Procedures CONSULT TO NUTRITION THERAPY MEDICAL NUTRITION ASSMT&IVNTJ INDIV EACH 15 TX MEDICAL NUTRITION ASSMT&IVNTJ INDIV EACH 15 TX MEDICAL NUTRITION ASSMT&IVNTJ INDIV EACH 15 TX MEDICAL NUTRITION ASSMT&IVNTJ INDIV EACH 15 [place] Caryn Lowery APRN.ICT SUPPORT ENGINEER [address] [place] [address] Referral ID Status Reason Start Date Expiration Date Visits Requested Visits Authorized [id number] Authorized PCP Requested Referral 11/23/2022 11/23/2023 1 1 Specialty Diagnoses / Procedures Referred By Contac t Referred To Contact Gastroenterology Diagnoses Epigastric pain Vomiting and diarrhea Procedures CONSULT TO GASTROENTEROLOGY OFFICE/OUTPATIENT [facility] MDM 60 MINUTES Caryn Lowery APRN.ICT SUPPORT ENGINEER [address] [place] [address] Referral ID Status Reason Start Date Expiration Date Visits Requested Visits Authorized [id number] Authorized PCP Requested Referral 11/16/2023 11/15/2024 1 1 Specialty Diagnoses / Procedures Referred By Contac t Referred To Contact CT IMAGING Diagnoses Chest pain, unspecified type Shortness of breath Palpitations Elevated d-dimer Procedures CT CHEST W IVCON PE DIAGNOSTIC COMPUTED TOMOGRAPHY THORAX W/CONTRAST Caryn Lowery APRN.ICT SUPPORT ENGINEER [address] [place] [address] [place] [address] Referral ID Status Reason Start Date Expiration Date Visits Requested Visits Authorized [id number] New Request Auto-Generat ed Referral 01/05/2024 02/03/2025 1 1 Specialty Diagnoses / Procedures Referred By Contac t Referred To Contact CT IMAGING Diagnoses Shortness of breath Cough, unspecified type Wheezing Low O2 saturation Subacute cough Procedures CT CHEST W IVCON DIAGNOSTIC COMPUTED TOMOGRAPHY THORAX W/CONTRAST Caryn Lowery APRN.ICT SUPPORT ENGINEER [address] [place] [address] Ct Imaging [facility] Referral ID Status Reason Start Date Expiration Date Visits Requested Visits Authorized [id number] Additional Clinical Info Needed Auto-Generat ed Referral 02/17/2024 03/18/2025 1 1 Specialty Diagnoses / Procedures Referred By Contac t Referred To Contact Diagnoses Mild persistent asthma without complication Elle Boone MD [address] [facility] [place] [address] Referral ID Status Reason Start Date Expiration Date V isits Requested Visits Authorized [id number] Pending Review 1 1 Chief Complaint and Reason for Visit Chief Complaint 6 M FU Reason for Visit Asthma EAMON (obstructive sleep apnea) Tobacco use disorder Chief Complaint Consult 6 M FU Reason for Visit Epigastric pain Asthma Morbid obesity with BMI of 50.0-59.9, adult EAMON (obstructive sleep apnea) Tobacco use disorder Chief Complaint 6 M FU Reason for Visit Asthma Morbid obesity with BMI of 50.0-59.9, adult EAMON (obstructive sleep apnea) Tobacco use disorder Chief Complaint 6 M FU CONCERN FOR PE Reason for Visit Asthma Morbid obesity with BMI of 50.0-59.9, adult EAMON (obstructive sleep apnea) Tobacco use disorder Health Concerns Infection Onset Date Last Indicated Resolved Time COVID-19 Rule-Out 06/30/2023 06/30/2023 Additional Source Comments INFORMATION SOURCE (unrecogn ized section and content) DATE CREATED AUTHOR 07/24/2021 [facility] DATE CREATED AUTHOR AUTHOR'S ORGANIZ ATION 07/03/2022 [facility] DATE CREATED AUTHOR AUTHOR'S ORGANIZ ATION 01/10/2024 [facility] ([place]) DATE CREATED AUTHOR AUTHOR'S ORGANIZ ATION 03/23/2024 [facility] DATE CREATED AUTHOR AUTHOR'S ORGANIZ ATION 04/03/2024 [facility] DATE CREATED AUTHOR AUTHOR'S ORGANIZ ATION 10/19/2024 [facility] DATE CREATED AUTHOR AUTHOR'S ORGANIZ ATION 12/23/2024 [facility] Source Comments (unrecognize d section and content) In the event this informatio n is protected by the Federal Confidentiality of Alcohol and Drug Abuse Patient Records regulations: The Federal rules restrict any use of the information to criminally investigate or prosecute any alcohol or drug abuse patient.[facility] Hospital[facility] the event this information is protected by the Federal Confidentiality of Alcohol and Drug Abuse Patient Records regulations: The Federal rules restrict any use of the information to criminally investigate or prosecute any alcohol or drug abuse patient.[facility] HospitalIn the event this information is protected by the Federal Confidentiality of Alcohol and Drug Abuse Patient Records regulations: The Federal rules restrict any use of the information to criminally investigate or prosecute any alcohol or drug abuse patient.[facility] HospitalIn the event this information is protected by the Federal Confidentiality of Alcohol and Drug Abuse Patient Records regulations: The Federal rules restrict any use of the information to criminally investigate or prosecute any alcohol or drug abuse patient.[facility] HospitalIn the event this information is protected by the Federal Confidentiality of Alcohol and Drug Abuse Patient Records regulations: The Federal rules restrict any use of the information to criminally investigate or prosecute any alcohol or drug abuse patient.[facility] HospitalIn the event this information is protected by the Federal Confidentiality of Alcohol and Drug Abuse Patient Records regulations: The Federal rules restrict any use of the information to criminally investigate or prosecute any alcohol or drug abuse patient.[facility] HospitalIn the event this information is protected by the Federal Confidentiality of Alcohol and Drug Abuse Patient Records regulations: The Federal rules restrict any use of the information to criminally investigate or prosecute any alcohol or drug abuse patient.[facility] HospitalIn the event this information is protected by the Federal Confidentiality of Alcohol and Drug Abuse Patient Records regulations: The Federal rules restrict any use of the information to criminally investigate or prosecute any alcohol or drug abuse patient.[facility] HospitalIn the event this information is protected by the Federal Confidentiality of Alcohol and Drug Abuse Patient Records regulations: The Federal rules restrict any use of the information to criminally investigate or prosecute any alcohol or drug abuse patient.[facility] HospitalIn the event this information is protected by the Federal Confidentiality of Alcohol and Drug Abuse Patient Records regulations: The Federal rules restrict any use of the information to criminally investigate or prosecute any alcohol or drug abuse patient.[facility] HospitalIn the event this information is protected by the Federal Confidentiality of Alcohol and Drug Abuse Patient Records regulations: The Federal rules restrict any use of the information to criminally investigate or prosecute any alcohol or drug abuse patient.[facility] HospitalIn the event this information is protected by the Federal Confidentiality of Alcohol and Drug Abuse Patient Records regulations: The Federal rules restrict any use of the information to criminally investigate or prosecute any alcohol or drug abuse patient.[facility] HospitalIn the event this information is protected by the Federal Confidentiality of Alcohol and Drug Abuse Patient Records regulations: The Federal rules restrict any use of the information to criminally investigate or prosecute any alcohol or drug abuse patient.[facility] HospitalIn the event this information is protected by the Federal Confidentiality of Alcohol and Drug Abuse Patient Records regulations: The Federal rules restrict any use of the information to criminally investigate or prosecute any alcohol or drug abuse patient.[facility] HospitalIn the event this information is protected by the Federal Confidentiality of Alcohol and Drug Abuse Patient Records regulations: The Federal rules restrict any use of the information to criminally investigate or prosecute any alcohol or drug abuse patient.[facility] HospitalIn the event this information is protected by the Federal Confidentiality of Alcohol and Drug Abuse Patient Records regulations: The Federal rules restrict any use of the information to criminally investigate or prosecute any alcohol or drug abuse patient.[facility] HospitalIn the event this information is protected by the Federal Confidentiality of Alcohol and Drug Abuse Patient Records regulations: The Federal rules restrict any use of the information to criminally investigate or prosecute any alcohol or drug abuse patient.[facility] HospitalIn the event this information is protected by the Federal Confidentiality of Alcohol and Drug Abuse Patient Records regulations: The Federal rules restrict any use of the information to criminally investigate or prosecute any alcohol or drug abuse patient.[facility] HospitalIn the event this information is protected by the Federal Confidentiality of Alcohol and Drug Abuse Patient Records regulations: The Federal rules restrict any use of the information to criminally investigate or prosecute any alcohol or drug abuse patient.[facility] HospitalIn the event this information is protected by the Federal Confidentiality of Alcohol and Drug Abuse Patient Records regulations: The Federal rules restrict any use of the information to criminally investigate or prosecute any alcohol or drug abuse patient.[facility] HospitalIn the event this information is protected by the Federal Confidentiality of Alcohol and Drug Abuse Patient Records regulations: The Federal rules restrict any use of the information to criminally investigate or prosecute any alcohol or drug abuse patient.[facility] HospitalIn the event this information is protected by the Federal Confidentiality of Alcohol and Drug Abuse Patient Records regulations: The Federal rules restrict any use of the information to criminally investigate or prosecute any alcohol or drug abuse patient.[facility] HospitalIn the event this information is protected by the Federal Confidentiality of Alcohol and Drug Abuse Patient Records regulations: The Federal rules restrict any use of the information to criminally investigate or prosecute any alcohol or drug abuse patient.[facility] HospitalIn the event this information is protected by the Federal Confidentiality of Alcohol and Drug Abuse Patient Records regulations: The Federal rules restrict any use of the information to criminally investigate or prosecute any alcohol or drug abuse patient.[facility] HospitalIn the event this information is protected by the Federal Confidentiality of Alcohol and Drug Abuse Patient Records regulations: The Federal rules restrict any use of the information to criminally investigate or prosecute any alcohol or drug abuse patient.[facility] HospitalIn the event this information is protected by the Federal Confidentiality of Alcohol and Drug Abuse Patient Records regulations: The Federal rules restrict any use of the information to criminally investigate or prosecute any alcohol or drug abuse patient.[facility] HospitalIn the event this information is protected by the Federal Confidentiality of Alcohol and Drug Abuse Patient Records regulations: The Federal rules restrict any use of the information to criminally investigate or prosecute any alcohol or drug abuse patient.[facility] HospitalIn the event this information is protected by the Federal Confidentiality of Alcohol and Drug Abuse Patient Records regulations: The Federal rules restrict any use of the information to criminally investigate or prosecute any alcohol or drug abuse patient.[facility] HospitalIn the event this information is protected by the Federal Confidentiality of Alcohol and Drug Abuse Patient Records regulations: The Federal rules restrict any use of the information to criminally investigate or prosecute any alcohol or drug abuse patient.[facility] HospitalIn the event this information is protected by the Federal Confidentiality of Alcohol and Drug Abuse Patient Records regulations: The Federal rules restrict any use of the information to criminally investigate or prosecute any alcohol or drug abuse patient.[facility] HospitalIn the event this information is protected by the Federal Confidentiality of Alcohol and Drug Abuse Patient Records regulations: The Federal rules restrict any use of the information to criminally investigate or prosecute any alcohol or drug abuse patient.[facility] HospitalIn the event this information is protected by the Federal Confidentiality of Alcohol and Drug Abuse Patient Records regulations: The Federal rules restrict any use of the information to criminally investigate or prosecute any alcohol or drug abuse patient.[facility] HospitalIn the event this information is protected by the Federal Confidentiality of Alcohol and Drug Abuse Patient Records regulations: The Federal rules restrict any use of the information to criminally investigate or prosecute any alcohol or drug abuse patient.[facility] HospitalIn the event this information is protected by the Federal Confidentiality of Alcohol and Drug Abuse Patient Records regulations: The Federal rules restrict any use of the information to criminally investigate or prosecute any alcohol or drug abuse patient.[facility] HospitalIn the event this information is protected by the Federal Confidentiality of Alcohol and Drug Abuse Patient Records regulations: The Federal rules restrict any use of the information to criminally investigate or prosecute any alcohol or drug abuse patient.[facility] HospitalIn the event this information is protected by the Federal Confidentiality of Alcohol and Drug Abuse Patient Records regulations: The Federal rules restrict any use of the information to criminally investigate or prosecute any alcohol or drug abuse patient.[facility] HospitalIn the event this information is protected by the Federal Confidentiality of Alcohol and Drug Abuse Patient Records regulations: The Federal rules restrict any use of the information to criminally investigate or prosecute any alcohol or drug abuse patient.[facility] HospitalIn the event this information is protected by the Federal Confidentiality of Alcohol and Drug Abuse Patient Records regulations: The Federal rules restrict any use of the information to criminally investigate or prosecute any alcohol or drug abuse patient.St. [facility] HospitalIn the event this information is protected by the Federal Confidentiality of Alcohol and Drug Abuse Patient Records regulations: The Federal rules restrict any use of the information to criminally investigate or prosecute any alcohol or drug abuse patient.[facility] HospitalIn the event this information is protected by the Federal Confidentiality of Alcohol and Drug Abuse Patient Records regulations: The Federal rules restrict any use of the information to criminally investigate or prosecute any alcohol or drug abuse patient.[facility] HospitalIn the event this information is protected by the Federal Confidentiality of Alcohol and Drug Abuse Patient Records regulations: The Federal rules restrict any use of the information to criminally investigate or prosecute any alcohol or drug abuse patient.[facility] HospitalIn the event this information is protected by the Federal Confidentiality of Alcohol and Drug Abuse Patient Records regulations: The Federal rules restrict any use of the information to criminally investigate or prosecute any alcohol or drug abuse patient.[facility] HospitalIn the event this information is protected by the Federal Confidentiality of Alcohol and Drug Abuse Patient Records regulations: The Federal rules restrict any use of the information to criminally investigate or prosecute any alcohol or drug abuse patient.[facility] HospitalIn the event this information is protected by the Federal Confidentiality of Alcohol and Drug Abuse Patient Records regulations: The Federal rules restrict any use of the information to criminally investigate or prosecute any alcohol or drug abuse patient.[facility] HospitalIn the event this information is protected by the Federal Confidentiality of Alcohol and Drug Abuse Patient Records regulations: The Federal rules restrict any use of the information to criminally investigate or prosecute any alcohol or drug abuse patient.[facility] HospitalIn the event this information is protected by the Federal Confidentiality of Alcohol and Drug Abuse Patient Records regulations: The Federal rules restrict any use of the information to criminally investigate or prosecute any alcohol or drug abuse patient.[facility] HospitalIn the event this information is protected by the Federal Confidentiality of Alcohol and Drug Abuse Patient Records regulations: The Federal rules restrict any use of the information to criminally investigate or prosecute any alcohol or drug abuse patient.[facility] HospitalIn the event this information is protected by the Federal Confidentiality of Alcohol and Drug Abuse Patient Records regulations: The Federal rules restrict any use of the information to criminally investigate or prosecute any alcohol or drug abuse patient.[facility] HospitalIn the event this information is protected by the Federal Confidentiality of Alcohol and Drug Abuse Patient Records regulations: The Federal rules restrict any use of the information to criminally investigate or prosecute any alcohol or drug abuse patient.[facility] HospitalIn the event this information is protected by the Federal Confidentiality of Alcohol and Drug Abuse Patient Records regulations: The Federal rules restrict any use of the information to criminally investigate or prosecute any alcohol or drug abuse patient.[facility] HospitalIn the event this information is protected by the Federal Confidentiality of Alcohol and Drug Abuse Patient Records regulations: The Federal rules restrict any use of the information to criminally investigate or prosecute any alcohol or drug abuse patient.[facility] HospitalIn the event this information is protected by the Federal Confidentiality of Alcohol and Drug Abuse Patient Records regulations: The Federal rules restrict any use of the information to criminally investigate or prosecute any alcohol or drug abuse patient.[facility] HospitalIn the event this information is protected by the Federal Confidentiality of Alcohol and Drug Abuse Patient Records regulations: The Federal rules restrict any use of the information to criminally investigate or prosecute any alcohol or drug abuse patient.[facility] HospitalIn the event this information is protected by the Federal Confidentiality of Alcohol and Drug Abuse Patient Records regulations: The Federal rules restrict any use of the information to criminally investigate or prosecute any alcohol or drug abuse patient.[facility] HospitalIn the event this information is protected by the Federal Confidentiality of Alcohol and Drug Abuse Patient Records regulations: The Federal rules restrict any use of the information to criminally investigate or prosecute any alcohol or drug abuse patient.[facility] HospitalIn the event this information is protected by the Federal Confidentiality of Alcohol and Drug Abuse Patient Records regulations: The Federal rules restrict any use of the information to criminally investigate or prosecute any alcohol or drug abuse patient.[facility] HospitalIn the event this information is protected by the Federal Confidentiality of Alcohol and Drug Abuse Patient Records regulations: The Federal rules restrict any use of the information to criminally investigate or prosecute any alcohol or drug abuse patient.[facility] HospitalIn the event this information is protected by the Federal Confidentiality of Alcohol and Drug Abuse Patient Records regulations: The Federal rules restrict any use of the information to criminally investigate or prosecute any alcohol or drug abuse patient.[facility] HospitalIn the event this information is protected by the Federal Confidentiality of Alcohol and Drug Abuse Patient Records regulations: The Federal rules restrict any use of the information to criminally investigate or prosecute any alcohol or drug abuse patient.[facility] HospitalIn the event this information is protected by the Federal Confidentiality of Alcohol and Drug Abuse Patient Records regulations: The Federal rules restrict any use of the information to criminally investigate or prosecute any alcohol or drug abuse patient.[facility] HospitalIn the event this information is protected by the Federal Confidentiality of Alcohol and Drug Abuse Patient Records regulations: The Federal rules restrict any use of the information to criminally investigate or prosecute any alcohol or drug abuse patient.[facility] HospitalIn the event this information is protected by the Federal Confidentiality of Alcohol and Drug Abuse Patient Records regulations: The Federal rules restrict any use of the information to criminally investigate or prosecute any alcohol or drug abuse patient.[facility] HospitalIn the event this information is protected by the Federal Confidentiality of Alcohol and Drug Abuse Patient Records regulations: The Federal rules restrict any use of the information to criminally investigate or prosecute any alcohol or drug abuse patient.[facility] HospitalIn the event this information is protected by the Federal Confidentiality of Alcohol and Drug Abuse Patient Records regulations: The Federal rules restrict any use of the information to criminally investigate or prosecute any alcohol or drug abuse patient.[facility] HospitalIn the event this information is protected by the Federal Confidentiality of Alcohol and Drug Abuse Patient Records regulations: The Federal rules restrict any use of the information to criminally investigate or prosecute any alcohol or drug abuse patient.[facility] HospitalIn the event this information is protected by the Federal Confidentiality of Alcohol and Drug Abuse Patient Records regulations: The Federal rules restrict any use of the information to criminally investigate or prosecute any alcohol or drug abuse patient.[facility] HospitalIn the event this information is protected by the Federal Confidentiality of Alcohol and Drug Abuse Patient Records regulations: The Federal rules restrict any use of the information to criminally investigate or prosecute any alcohol or drug abuse patient.[facility] HospitalIn the event this information is protected by the Federal Confidentiality of Alcohol and Drug Abuse Patient Records regulations: The Federal rules restrict any use of the information to criminally investigate or prosecute any alcohol or drug abuse patient.[facility] HospitalIn the event this information is protected by the Federal Confidentiality of Alcohol and Drug Abuse Patient Records regulations: The Federal rules restrict any use of the information to criminally investigate or prosecute any alcohol or drug abuse patient.[facility] HospitalIn the event this information is protected by the Federal Confidentiality of Alcohol and Drug Abuse Patient Records regulations: The Federal rules restrict any use of the information to criminally investigate or prosecute any alcohol or drug abuse patient.[facility] HospitalIn the event this information is protected by the Federal Confidentiality of Alcohol and Drug Abuse Patient Records regulations: The Federal rules restrict any use of the information to criminally investigate or prosecute any alcohol or drug abuse patient.[facility] HospitalIn the event this information is protected by the Federal Confidentiality of Alcohol and Drug Abuse Patient Records regulations: The Federal rules restrict any use of the information to criminally investigate or prosecute any alcohol or drug abuse patient.[facility] HospitalIn the event this information is protected by the Federal Confidentiality of Alcohol and Drug Abuse Patient Records regulations: The Federal rules restrict any use of the information to criminally investigate or prosecute any alcohol or drug abuse patient.[facility] HospitalIn the event this information is protected by the Federal Confidentiality of Alcohol and Drug Abuse Patient Records regulations: The Federal rules restrict any use of the information to criminally investigate or prosecute any alcohol or drug abuse patient.[facility] HospitalIn the event this information is protected by the Federal Confidentiality of Alcohol and Drug Abuse Patient Records regulations: The Federal rules restrict any use of the information to criminally investigate or prosecute any alcohol or drug abuse patient.[facility] HospitalIn the event this information is protected by the Federal Confidentiality of Alcohol and Drug Abuse Patient Records regulations: The Federal rules restrict any use of the information to criminally investigate or prosecute any alcohol or drug abuse patient.[facility] HospitalIn the event this information is protected by the Federal Confidentiality of Alcohol and Drug Abuse Patient Records regulations: The Federal rules restrict any use of the information to criminally investigate or prosecute any alcohol or drug abuse patient.[facility] HospitalIn the event this information is protected by the Federal Confidentiality of Alcohol and Drug Abuse Patient Records regulations: The Federal rules restrict any use of the information to criminally investigate or prosecute any alcohol or drug abuse patient.[facility] HospitalIn the event this information is protected by the Federal Confidentiality of Alcohol and Drug Abuse Patient Records regulations: The Federal rules restrict any use of the information to criminally investigate or prosecute any alcohol or drug abuse patient.[facility] HospitalIn the event this information is protected by the Federal Confidentiality of Alcohol and Drug Abuse Patient Records regulations: The Federal rules restrict any use of the information to criminally investigate or prosecute any alcohol or drug abuse patient.[facility] HospitalIn the event this information is protected by the Federal Confidentiality of Alcohol and Drug Abuse Patient Records regulations: The Federal rules restrict any use of the information to criminally investigate or prosecute any alcohol or drug abuse patient.[facility] HospitalIn the event this information is protected by the Federal Confidentiality of Alcohol and Drug Abuse Patient Records regulations: The Federal rules restrict any use of the information to criminally investigate or prosecute any alcohol or drug abuse patient.[facility] HospitalIn the event this information is protected by the Federal Confidentiality of Alcohol and Drug Abuse Patient Records regulations: The Federal rules restrict any use of the information to criminally investigate or prosecute any alcohol or drug abuse patient.[facility] HospitalIn the event this information is protected by the Federal Confidentiality of Alcohol and Drug Abuse Patient Records regulations: The Federal rules restrict any use of the information to criminally investigate or prosecute any alcohol or drug abuse patient.[facility] HospitalIn the event this information is protected by the Federal Confidentiality of Alcohol and Drug Abuse Patient Records regulations: The Federal rules restrict any use of the information to criminally investigate or prosecute any alcohol or drug abuse patient.[facility] HospitalIn the event this information is protected by the Federal Confidentiality of Alcohol and Drug Abuse Patient Records regulations: The Federal rules restrict any use of the information to criminally investigate or prosecute any alcohol or drug abuse patient.[facility] HospitalIn the event this information is protected by the Federal Confidentiality of Alcohol and Drug Abuse Patient Records regulations: The Federal rules restrict any use of the information to criminally investigate or prosecute any alcohol or drug abuse patient.[facility] HospitalIn the event this information is protected by the Federal Confidentiality of Alcohol and Drug Abuse Patient Records regulations: The Federal rules restrict any use of the information to criminally investigate or prosecute any alcohol or drug abuse patient.[facility] HospitalIn the event this information is protected by the Federal Confidentiality of Alcohol and Drug Abuse Patient Records regulations: The Federal rules restrict any use of the information to criminally investigate or prosecute any alcohol or drug abuse patient.[facility] HospitalIn the event this information is protected by the Federal Confidentiality of Alcohol and Drug Abuse Patient Records regulations: The Federal rules restrict any use of the information to criminally investigate or prosecute any alcohol or drug abuse patient.[facility] HospitalIn the event this information is protected by the Federal Confidentiality of Alcohol and Drug Abuse Patient Records regulations: The Federal rules restrict any use of the information to criminally investigate or prosecute any alcohol or drug abuse patient.[facility] HospitalIn the event this information is protected by the Federal Confidentiality of Alcohol and Drug Abuse Patient Records regulations: The Federal rules restrict any use of the information to criminally investigate or prosecute any alcohol or drug abuse patient.[facility] HospitalIn the event this information is protected by the Federal Confidentiality of Alcohol and Drug Abuse Patient Records regulations: The Federal rules restrict any use of the information to criminally investigate or prosecute any alcohol or drug abuse patient.[facility] HospitalIn the event this information is protected by the Federal Confidentiality of Alcohol and Drug Abuse Patient Records regulations: The Federal rules restrict any use of the information to criminally investigate or prosecute any alcohol or drug abuse patient.[facility] HospitalIn the event this information is protected by the Federal Confidentiality of Alcohol and Drug Abuse Patient Records regulations: The Federal rules restrict any use of the information to criminally investigate or prosecute any alcohol or drug abuse patient.[facility] HospitalIn the event this information is protected by the Federal Confidentiality of Alcohol and Drug Abuse Patient Records regulations: The Federal rules restrict any use of the information to criminally investigate or prosecute any alcohol or drug abuse patient.[facility] HospitalIn the event this information is protected by the Federal Confidentiality of Alcohol and Drug Abuse Patient Records regulations: The Federal rules restrict any use of the information to criminally investigate or prosecute any alcohol or drug abuse patient.[facility] HospitalIn the event this information is protected by the Federal Confidentiality of Alcohol and Drug Abuse Patient Records regulations: The Federal rules restrict any use of the information to criminally investigate or prosecute any alcohol or drug abuse patient.[facility] HospitalIn the event this information is protected by the Federal Confidentiality of Alcohol and Drug Abuse Patient Records regulations: The Federal rules restrict any use of the information to criminally investigate or prosecute any alcohol or drug abuse patient.[facility] HospitalIn the event this information is protected by the Federal Confidentiality of Alcohol and Drug Abuse Patient Records regulations: The Federal rules restrict any use of the information to criminally investigate or prosecute any alcohol or drug abuse patient.[facility] HospitalIn the event this information is protected by the Federal Confidentiality of Alcohol and Drug Abuse Patient Records regulations: The Federal rules restrict any use of the information to criminally investigate or prosecute any alcohol or drug abuse patient.[facility] HospitalIn the event this information is protected by the Federal Confidentiality of Alcohol and Drug Abuse Patient Records regulations: The Federal rules restrict any use of the information to criminally investigate or prosecute any alcohol or drug abuse patient.[facility] HospitalIn the event this information is protected by the Federal Confidentiality of Alcohol and Drug Abuse Patient Records regulations: The Federal rules restrict any use of the information to criminally investigate or prosecute any alcohol or drug abuse patient.[facility] HospitalIn the event this information is protected by the Federal Confidentiality of Alcohol and Drug Abuse Patient Records regulations: The Federal rules restrict any use of the information to criminally investigate or prosecute any alcohol or drug abuse patient.[facility] HospitalIn the event this information is protected by the Federal Confidentiality of Alcohol and Drug Abuse Patient Records regulations: The Federal rules restrict any use of the information to criminally investigate or prosecute any alcohol or drug abuse patient.[facility] HospitalIn the event this information is protected by the Federal Confidentiality of Alcohol and Drug Abuse Patient Records regulations: The Federal rules restrict any use of the information to criminally investigate or prosecute any alcohol or drug abuse patient.[facility] HospitalIn the event this information is protected by the Federal Confidentiality of Alcohol and Drug Abuse Patient Records regulations: The Federal rules restrict any use of the information to criminally investigate or prosecute any alcohol or drug abuse patient.[facility] HospitalIn the event this information is protected by the Federal Confidentiality of Alcohol and Drug Abuse Patient Records regulations: The Federal rules restrict any use of the information to criminally investigate or prosecute any alcohol or drug abuse patient.[facility] HospitalIn the event this information is protected by the Federal Confidentiality of Alcohol and Drug Abuse Patient Records regulations: The Federal rules restrict any use of the information to criminally investigate or prosecute any alcohol or drug abuse patient.[facility] HospitalIn the event this information is protected by the Federal Confidentiality of Alcohol and Drug Abuse Patient Records regulations: The Federal rules restrict any use of the information to criminally investigate or prosecute any alcohol or drug abuse patient.[facility] HospitalIn the event this information is protected by the Federal Confidentiality of Alcohol and Drug Abuse Patient Records regulations: The Federal rules restrict any use of the information to criminally investigate or prosecute any alcohol or drug abuse patient.[facility] HospitalIn the event this information is protected by the Federal Confidentiality of Alcohol and Drug Abuse Patient Records regulations: The Federal rules restrict any use of the information to criminally investigate or prosecute any alcohol or drug abuse patient.[facility] HospitalIn the event this information is protected by the Federal Confidentiality of Alcohol and Drug Abuse Patient Records regulations: The Federal rules restrict any use of the information to criminally investigate or prosecute any alcohol or drug abuse patient.[facility] HospitalIn the event this information is protected by the Federal Confidentiality of Alcohol and Drug Abuse Patient Records regulations: The Federal rules restrict any use of the information to criminally investigate or prosecute any alcohol or drug abuse patient.[facility] HospitalIn the event this information is protected by the Federal Confidentiality of Alcohol and Drug Abuse Patient Records regulations: The Federal rules restrict any use of the information to criminally investigate or prosecute any alcohol or drug abuse patient.[facility] HospitalIn the event this information is protected by the Federal Confidentiality of Alcohol and Drug Abuse Patient Records regulations: The Federal rules restrict any use of the information to criminally investigate or prosecute any alcohol or drug abuse patient.[facility] HospitalIn the event this information is protected by the Federal Confidentiality of Alcohol and Drug Abuse Patient Records regulations: The Federal rules restrict any use of the information to criminally investigate or prosecute any alcohol or drug abuse patient.[facility] HospitalIn the event this information is protected by the Federal Confidentiality of Alcohol and Drug Abuse Patient Records regulations: The Federal rules restrict any use of the information to criminally investigate or prosecute any alcohol or drug abuse patient.[facility] HospitalIn the event this information is protected by the Federal Confidentiality of Alcohol and Drug Abuse Patient Records regulations: The Federal rules restrict any use of the information to criminally investigate or prosecute any alcohol or drug abuse patient.[facility] HospitalIn the event this information is protected by the Federal Confidentiality of Alcohol and Drug Abuse Patient Records regulations: The Federal rules restrict any use of the information to criminally investigate or prosecute any alcohol or drug abuse patient.[facility] HospitalIn the event this information is protected by the Federal Confidentiality of Alcohol and Drug Abuse Patient Records regulations: The Federal rules restrict any use of the information to criminally investigate or prosecute any alcohol or drug abuse patient.[facility] HospitalIn the event this information is protected by the Federal Confidentiality of Alcohol and Drug Abuse Patient Records regulations: The Federal rules restrict any use of the information to criminally investigate or prosecute any alcohol or drug abuse patient.[facility] HospitalIn the event this information is protected by the Federal Confidentiality of Alcohol and Drug Abuse Patient Records regulations: The Federal rules restrict any use of the information to criminally investigate or prosecute any alcohol or drug abuse patient.[facility] HospitalIn the event this information is protected by the Federal Confidentiality of Alcohol and Drug Abuse Patient Records regulations: The Federal rules restrict any use of the information to criminally investigate or prosecute any alcohol or drug abuse patient.[facility] HospitalIn the event this information is protected by the Federal Confidentiality of Alcohol and Drug Abuse Patient Records regulations: The Federal rules restrict any use of the information to criminally investigate or prosecute any alcohol or drug abuse patient.[facility] HospitalIn the event this information is protected by the Federal Confidentiality of Alcohol and Drug Abuse Patient Records regulations: The Federal rules restrict any use of the information to criminally investigate or prosecute any alcohol or drug abuse patient.[facility] HospitalIn the event this information is protected by the Federal Confidentiality of Alcohol and Drug Abuse Patient Records regulations: The Federal rules restrict any use of the information to criminally investigate or prosecute any alcohol or drug abuse patient.[facility] HospitalIn the event this information is protected by the Federal Confidentiality of Alcohol and Drug Abuse Patient Records regulations: The Federal rules restrict any use of the information to criminally investigate or prosecute any alcohol or drug abuse patient.[facility] HospitalIn the event this information is protected by the Federal Confidentiality of Alcohol and Drug Abuse Patient Records regulations: The Federal rules restrict any use of the information to criminally investigate or prosecute any alcohol or drug abuse patient.[facility] HospitalIn the event this information is protected by the Federal Confidentiality of Alcohol and Drug Abuse Patient Records regulations: The Federal rules restrict any use of the information to criminally investigate or prosecute any alcohol or drug abuse patient.[facility] HospitalIn the event this information is protected by the Federal Confidentiality of Alcohol and Drug Abuse Patient Records regulations: The Federal rules restrict any use of the information to criminally investigate or prosecute any alcohol or drug abuse patient.[facility] HospitalIn the event this information is protected by the Federal Confidentiality of Alcohol and Drug Abuse Patient Records regulations: The Federal rules restrict any use of the information to criminally investigate or prosecute any alcohol or drug abuse patient.[facility] HospitalIn the event this information is protected by the Federal Confidentiality of Alcohol and Drug Abuse Patient Records regulations: The Federal rules restrict any use of the information to criminally investigate or prosecute any alcohol or drug abuse patient.[facility] HospitalIn the event this information is protected by the Federal Confidentiality of Alcohol and Drug Abuse Patient Records regulations: The Federal rules restrict any use of the information to criminally investigate or prosecute any alcohol or drug abuse patient.[facility] HospitalIn the event this information is protected by the Federal Confidentiality of Alcohol and Drug Abuse Patient Records regulations: The Federal rules restrict any use of the information to criminally investigate or prosecute any alcohol or drug abuse patient.[facility] HospitalIn the event this information is protected by the Federal Confidentiality of Alcohol and Drug Abuse Patient Records regulations: The Federal rules restrict any use of the information to criminally investigate or prosecute any alcohol or drug abuse patient.[facility] HospitalIn the event this information is protected by the Federal Confidentiality of Alcohol and Drug Abuse Patient Records regulations: The Federal rules restrict any use of the information to criminally investigate or prosecute any alcohol or drug abuse patient.[facility] HospitalIn the event this information is protected by the Federal Confidentiality of Alcohol and Drug Abuse Patient Records regulations: The Federal rules restrict any use of the information to criminally investigate or prosecute any alcohol or drug abuse patient.[facility] HospitalIn the event this information is protected by the Federal Confidentiality of Alcohol and Drug Abuse Patient Records regulations: The Federal rules restrict any use of the information to criminally investigate or prosecute any alcohol or drug abuse patient.[facility] HospitalIn the event this information is protected by the Federal Confidentiality of Alcohol and Drug Abuse Patient Records regulations: The Federal rules restrict any use of the information to criminally investigate or prosecute any alcohol or drug abuse patient.[facility] HospitalIn the event this information is protected by the Federal Confidentiality of Alcohol and Drug Abuse Patient Records regulations: The Federal rules restrict any use of the information to criminally investigate or prosecute any alcohol or drug abuse patient.[facility] HospitalIn the event this information is protected by the Federal Confidentiality of Alcohol and Drug Abuse Patient Records regulations: The Federal rules restrict any use of the information to criminally investigate or prosecute any alcohol or drug abuse patient.[facility] HospitalIn the event this information is protected by the Federal Confidentiality of Alcohol and Drug Abuse Patient Records regulations: The Federal rules restrict any use of the information to criminally investigate or prosecute any alcohol or drug abuse patient.[facility] HospitalIn the event this information is protected by the Federal Confidentiality of Alcohol and Drug Abuse Patient Records regulations: The Federal rules restrict any use of the information to criminally investigate or prosecute any alcohol or drug abuse patient.[facility] HospitalIn the event this information is protected by the Federal Confidentiality of Alcohol and Drug Abuse Patient Records regulations: The Federal rules restrict any use of the information to criminally investigate or prosecute any alcohol or drug abuse patient.[facility] HospitalIn the event this information is protected by the Federal Confidentiality of Alcohol and Drug Abuse Patient Records regulations: The Federal rules restrict any use of the information to criminally investigate or prosecute any alcohol or drug abuse patient.[facility] HospitalIn the event this information is protected by the Federal Confidentiality of Alcohol and Drug Abuse Patient Records regulations: The Federal rules restrict any use of the information to criminally investigate or prosecute any alcohol or drug abuse patient.[facility] HospitalIn the event this information is protected by the Federal Confidentiality of Alcohol and Drug Abuse Patient Records regulations: The Federal rules restrict any use of the information to criminally investigate or prosecute any alcohol or drug abuse patient.[facility] HospitalIn the event this information is protected by the Federal Confidentiality of Alcohol and Drug Abuse Patient Records regulations: The Federal rules restrict any use of the information to criminally investigate or prosecute any alcohol or drug abuse patient.[facility] HospitalIn the event this information is protected by the Federal Confidentiality of Alcohol and Drug Abuse Patient Records regulations: The Federal rules restrict any use of the information to criminally investigate or prosecute any alcohol or drug abuse patient.[facility] HospitalIn the event this information is protected by the Federal Confidentiality of Alcohol and Drug Abuse Patient Records regulations: The Federal rules restrict any use of the information to criminally investigate or prosecute any alcohol or drug abuse patient.[facility] Reason for Visit (unrecogniz ed section and content) Reason Comments 1 week post op right thumb and middle tr igger finger release Post Op Reason Onset Date Comments Refill Request 09/24/2021 Reason Comments Patient Update Reason Onset Date Comments Refill Request 09/30/2021 Reason Comments Recheck Follow up swelling Reason Comments Orders Reason Comments Trauma Pt reported grease b urn x1 day abd (RT) side Reason Comments express care follow up - vega Reason Comments Refill Request Reason Comments Appointment Medication Request Patient Update Reason Comments prior authorization Pts medication comes up needing prior authorization Reason Comments Recheck 4 week follow up Reason Comments Rectal Problem Reason Onset Date Comments Refill Request 03/20/2022 Reason Comments Recheck Follow up, trulicity . Nausea and vomiting. Reason Comments Recheck 2 week follow up Reason Comments Patient Question Reason Comments Recheck Follow up Reason Onset Date Comments Refill Request 05/15/2022 Reason Onset Date Comments Refill Request 05/14/2022 Reason Onset Date Comments Refill Request 05/19/2022 Reason Comments Low Blood Sugar Reason Comments Blood sugars up and down Reason Comments Recheck DM follow up Reason Comments Abdominal Pain Nausea, Diarrhea Specialty Diagnoses / Procedures Referred By Contac t Referred To Contact Gastroenterology Diagnoses Left lower quadrant abdominal pain Nausea Diarrhea, unspecified type Procedures CONSULT TO GASTROENTEROLOGY OFFICE/OUTPATIENT NEW HIGH MDM 60-74 MINUTES Caryn Lowery APRN.ICT SUPPORT ENGINEER [address] [place] [address] Referral ID Status Reason Start Date Expiration Date V isits Requested Visits Authorized [id number] Closed PCP Requested Referral 04/08/2022 04/08/2023 1 1 Reason Comments New Patient Discuss EGDComplains of abdominal pain - epigastric pain. Reason Comments Established Patient Knee Pain Reason Comments Recheck GI follow up Reason Comments referral Reason Comments Recheck 3 month follow up Reason Onset Date Comments Refill Request 08/24/2022 Reason Onset Date Comments Refill Request 08/28/2022 Reason Onset Date Comments Refill Request 09/03/2022 Reason Onset Date Comments Refill Request 09/25/2022 Reason Comments Pain Reason Onset Date Comments Refill Request 11/24/2022 Reason Comments Recheck 3 month follow up Reason Comments Patient Update Patient Question Reason Comments low blood sugars Reason Onset Date Comments Refill Request 12/21/2022 Reason Comments Patient Education Assessment Specialty Diagnoses / Procedures Referred By Contac t Referred To Contact Nutrition Diagnoses Controlled type 2 diabetes mellitus without complication, without long-term current use of insulin (HCC) Class 3 drug-induced obesity with serious comorbidity and body mass index (BMI) of 50.0 to 59.9 in adult (HCC) Procedures CONSULT TO NUTRITION THERAPY MEDICAL NUTRITION ASSMT&IVNTJ INDIV EACH 15 TX MEDICAL NUTRITION ASSMT&IVNTJ INDIV EACH 15 TX MEDICAL NUTRITION ASSMT&IVNTJ INDIV EACH 15 [place] MEDICAL NUTRITION ASSMT&IVNTJ INDIV EACH 15 [place] Caryn Lowery APRN.ICT SUPPORT ENGINEER [address] [place] [address] Referral ID Status Reason Start Date Expiration Date V isits Requested Visits Authorized [id number] Closed PCP Requested Referral 11/23/2022 11/23/2023 1 1 Reason Comments Recheck Adipex follow up Reason Comments Recheck 2 month follow up Reason Comments Radiology US Specialty Diagnoses / Procedures Referred By Contac t Referred To Contact US IMAGING Diagnoses RUQ pain Nausea Epigastric pain Diarrhea, unspecified type Procedures US ABD RT UPPER QUADRANT US ABDOMINAL REAL TIME W/IMAGE LIMITED 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, 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, 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 [address] [place] [address] [place] [address] Referral ID Status Reason Start Date Expiration Date V isits Requested Visits Authorized [id number] Closed Auto-Generate d Referral 03/25/2022 04/24/2023 1 1 Reason Onset Date Comments Refill Request 03/19/2023 Reason Comments Covid Follow Up Reason Comments COVID update Reason Onset Date Comments Refill Request 04/19/2023 Reason Comments Cough Nasal Congestion Reason Comments Cough Cough, chest congest ion, nasal congestion and BELTRAN x 2 days Reason Comments Rash Bug bite on R wrist, rash all over body itching all over, x 1-2 days redness, swellingStates her cough still has rattle in her chest Reason Comments Rash Body rash all over x 6 days Reason Onset Date Comments Opened In Error 07/30/2023 Reason Onset Date Comments Refill Request 08/10/2023 Reason Comments blood pressure kit problem Reason Comments Swelling Around Left Eye Reason Onset Date Comments Refill Request 09/03/2023 Reason Comments Follow Up Reason Onset Date Comments Refill Request 11/01/2023 Reason Comments Recheck 3 month follow up, n /v since Wednesday. Taking imodium and pepto bismol Reason Comments Results Reason Onset Date Comments Refill Request 11/30/2023 Reason Comments Recheck 2 week follow up, st omach pain Reason Comments Dental Problem Tooth infection uppe r right started this morning Reason Onset Date Comments Refill Request 12/07/2023 Reason Onset Date Comments Refill Request 12/10/2023 Reason Comments Recheck Follow up Reason Comments Elevated D- Dimer Reason Onset Date Comments Refill Request 01/06/2024 Reason Comments Orders Reason Comments Recheck ER follow up, lung i nfection Reason Comments Medication Problem Reason Comments Recheck Follow up, SOB Reason Comments 4 week follow up Reason Onset Date Comments Refill Request 02/16/2024 Reason Comments Chest Congestion Chest congestion, SO B Reason Comments Faxed to 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 Reason Comments Packing removal from boil Reason Onset Date Comments Refill Request 04/12/2024 Reason Comments Recheck Follow up medication Reason Onset Date Comments Refill Request 05/16/2024 Reason Comments Spirometry Specialty Diagnoses / Procedures Referred By Contac t Referred To Contact [facility] Diagnoses Cough, unspecified type Procedures NITRIC OXIDE, EXHALED NITRIC OXIDE GAS DETERMINATION Elle Boone MD [address] [place] [address] [facility] [place] [address] [place], [place] [id number] Referral ID Status Reason Start Date Expiration Date V isits Requested Visits Authorized [id number] Closed Auto-Generate d Referral 05/23/2024 06/22/2025 1 1 Specialty Diagnoses / Procedures Referred By Contac t Referred To Contact [facility] Diagnoses Cough, unspecified type Procedures SPIROMETRY WITH DILATOR IF OBSTRUCTED BRNCDILAT RSPSE SPMTRY PRE&POST-BRNCDILAT ADMN Elle Boone MD [address] [place] [address] [facility] [place] [address] [place], [place] [id number] Referral ID Status Reason Start Date Expiration Date V isits Requested Visits Authorized [id number] Closed Auto-Generate d Referral 05/23/2024 06/22/2025 1 1 Reason Comments Cough Asthma Consult Fatigue Wheezing Reason Comments Recheck DM follow up Reason Comments Cough Chest congestion, elizabeth dy feels heavy, fatigue, pressure in sinus area, tickle in throat x 2 days Reason Comments Recheck Medication follow up Reason Comments Recheck Follow up headaches, B/L shoulder pain, back pain Reason Comments Recheck ER follow up Reason Onset Date Comments Refill Request 10/26/2024 Reason Comments Established Patient 4 month follow up Reason Comments Rash Reason Onset Date Comments Refill Request 11/21/2024 Reason Comments Abscess Under left breast Care Teams (unrecognized sec tion and content) Tutor Relationship Specialty Start Date End Date Babar Phillip MD [address] [place] [address] PCP - General Internal Medicine 12/17/16 Deanne Patterson MD [address] [place] [address] [address] [place], [place] [id number] Pulmonary Disease 02/07/21 Tutor Relationship Specialty Start Date End Date Babar Phillip MD [address] [place], [place] [address] PCP - General Internal Medicine 12/17/16 Deanne Patterson MD [address] [place] [address] [address] [place] [address] Pulmonary Disease 02/07/21 Tutor Relationship Specialty Start Date End Date Babar Phillip MD [address] [place] [address] PCP - General Internal Medicine 12/17/16 Deanne Patterson MD [address] [place] [address] [address] [place] [address] Pulmonary Disease 02/07/21 Tutor Relationship Specialty Start Date End Date Babar Phillip MD [address] [place] [address] PCP - General Internal Medicine 12/17/16 Deanne Patterson MD [address] [facility] [address] [place] [address] Pulmonary Disease 02/07/21 Tutor Relationship Specialty Start Date End Date Babar Phillip MD [address] [place] [address] PCP - General Internal Medicine 12/17/16 Deanne Patterson MD [address] [facility] [address] [place] [address] Pulmonary Disease 02/07/21 Tutor Relationship Specialty Start Date End Date Babar Phillip MD [address] [place] [address] PCP - General Internal Medicine 12/17/16 Deanne Patterson MD [address] [facility] [address] [place] [address] Pulmonary Disease 02/07/21 Tutor Relationship Specialty Start Date End Date Babar Phillip MD [address] [place] [address] PCP - General Internal Medicine 12/17/16 Deanne Patterson MD [address] [facility] [address] [place] [address] Pulmonary Disease 02/07/21 Tutor Relationship Specialty Start Date End Date Babar Phillip MD [address] [place] [address] PCP - General Internal Medicine 12/17/16 Deanne Patterson MD [address] [facility] [address] [place] [address] Pulmonary Disease 02/07/21 Tutor Relationship Specialty Start Date End Date Babar Phillip MD [address] [place] [address] PCP - General Internal Medicine 12/17/16 [place] [address] [place] [address] [address] [place] [address] Pulmonary Disease 02/07/21 Tutor Relationship Specialty Start Date End Date Babar Phillip MD [address] [place] [address] PCP - General Internal Medicine 12/17/16 Deanne Patterson MD [address] [facility] [address] [place] [address] Pulmonary Disease 02/07/21 Tutor Relationship Specialty Start Date End Date Babar Phillip MD [address] [place] [address] PCP - General Internal Medicine 12/17/16 Deanne Patterson MD [address] [place] [address] [address] [place] [address] Pulmonary Disease 02/07/21 Tutor Relationship Specialty Start Date End Date Babar Phillip MD [address] [place] [address] PCP - General Internal Medicine 12/17/16 Deanne Patterson MD [address] [facility] [address] [place] [address] Pulmonary Disease 02/07/21 Tutor Relationship Specialty Start Date End Date Babar Phillip MD [address] [place] [address] PCP - General Internal Medicine 12/17/16 Deanne Patterson MD [address] [place] [address] [address] [place] [address] Pulmonary Disease 02/07/21 Tutor Relationship Specialty Start Date End Date Babar Phillip MD [address] [place] [address] PCP - General Internal Medicine 12/17/16 Deanne Patterson MD [address] [facility] [address] [place] [address] Pulmonary Disease 02/07/21 Tutor Relationship Specialty Start Date End Date Babar Phillip MD [address] [place] [address] PCP - General Internal Medicine 12/17/16 [place] [address] [place] [address] [address] [place] [address] Pulmonary Disease 02/07/21 Tutor Relationship Specialty Start Date End Date Babar Phillip MD [address] [place] [address] PCP - General Internal Medicine 12/17/16 Deanne Patterson MD [address] [facility] [address] [place] [address] Pulmonary Disease 02/07/21 Tutor Relationship Specialty Start Date End Date Babar Phillip MD [address] [place] [address] PCP - General Internal Medicine 12/17/16 [place] [address] [place] [address] [address] [place] [address] Pulmonary Disease 02/07/21 Tutor Relationship Specialty Start Date End Date Babar Phillip MD [address] [place] [address] PCP - General Internal Medicine 12/17/16 [place] [address] [place] [address] [address] [place] [address] Pulmonary Disease 02/07/21 Tutor Relationship Specialty Start Date End Date Babar Phillip MD [address] [place] [address] PCP - General Internal Medicine 12/17/16 Deanne Patterson MD [address] [place] [address] [address] [place], [place] [id number] Pulmonary Disease 02/07/21 Team Status: Active Member Role Status Dates Dr. Babar Phillip MD Family Provider Active Dr. Babar Phillip MD Primary Care Provider Active Team Status: Inactive Member Role Status Dates Dr. Babra Phillip MD Primary Care Provider, Referring Provider Active Coco Regalado CONCRETE PIPE MAKING MACHINE OPERATOR, CONCRETE PIPE MAKING MACHINE OPERATOR-C Attending Provider Active Team Status: Inactive Member Role Status Dates Dr. Babar Phillip MD Primary Care Provider Active Dr. Steve Tirado MD Attending Provider, Referring Provider Active Tutor Relationship Specialty Start Date End Date Babar Phillip MD [address] [place] [address] PCP - General Internal Medicine 12/17/16 Deanne Patterson MD [address] [place] [address] [address] [place], [place] [address] Pulmonary Disease 02/07/21 Tutor Relationship Specialty Start Date End Date Babar Phillip MD [address] [place] [address] PCP - General Internal Medicine 12/17/16 Deanne Patterson MD [address] [place] [address] [address] [place] [address] Pulmonary Disease 02/07/21 Tutor Relationship Specialty Start Date End Date Babar Phillip MD [address] [place], [place] [address] PCP - General Internal Medicine 12/17/16 Deanne Patterson MD [address] [facility] [address] [place], [place] [address] Pulmonary Disease 02/07/21 Tutor Relationship Specialty Start Date End Date Babar Phillip MD [address] [place], [place] [address] PCP - General Internal Medicine 12/17/16 Deanne Patterson MD [address] [place] [address] 877825 Pulmonary Disease 02/07/21 Tutor Relationship Specialty Start Date End Date Babar Phillip MD [address] [place], [place] [address] PCP - General Internal Medicine 12/17/16 Deanne Patterson MD [address] [place] [id number] Pulmonary Disease 02/07/21 Tutor Relationship Specialty Start Date End Date Babar Phillip MD [address] [place], [place] 6028[address] PCP - General Internal Medicine 12/17/16 Deanne Patterson MD [address] [address] Pulmonary Disease 02/07/21 Tutor Relationship Specialty Start Date End Date Babar Phillip MD [address] [place], [place] 6[address] PCP - General Internal Medicine 12/17/16 Deanne Patterson MD [address] [facility] [address] [place] [address] Pulmonary Disease 02/07/21 Tutor Relationship Specialty Start Date End Date Babar Phillip MD [address] [place] [address] PCP - General Internal Medicine 12/17/16 Deanne Patterson MD [address] 5532[address] Pulmonary Disease 02/07/21 Tutor Relationship Specialty Start Date End Date Babar Phillip MD [address] [place], [place] [address]24[address] PCP - General Internal Medicine 12/17/16 Deanne Patterson MD [address] 8[address] Pulmonary Disease 02/07/21 Tutor Relationship Specialty Start Date End Date Babar Phillip MD [address] [place] [address] PCP - General Internal Medicine 12/17/16 Deanne Patterson MD [address] [facility] [address] [place] [address] Pulmonary Disease 02/07/21 Tutor Relationship Specialty Start Date End Date Babar Phillip MD [address] [place] [address] PCP - General Internal Medicine 12/17/16 Deanne Patterson MD [address] [place] [address] [address] [place] [address] Pulmonary Disease 02/07/21 Team Status: Inactive Member Role Status Dates Dr. Babar Phillip MD Primary Care Provider, Referring Provider Active Dr. Kamron Cobb MD Attending Provider Active Team Status: Inactive Member Role Status Dates Dr. Babar Phillip MD Primary Care Provider, Referring Provider Active Dr. Akin Gary DO Attending Provider Active Tutor Relationship Specialty Start Date End Date Babar Phillip MD [address] [place] [address] PCP - General Internal Medicine 12/17/16 Deanne Patterson MD 1945 [facility] [address] [place] [address] Pulmonary Disease 02/07/21 Tutor Relationship Specialty Start Date End Date Babar Phillip MD [address] [place] [address] PCP - General Internal Medicine 12/17/16 Deanne Patterson MD [address] [place] [address] [address] [place] [address] Pulmonary Disease 02/07/21 Tutor Relationship Specialty Start Date End Date Babar Phillip MD [address] [place], [place] 562881 PCP - General Internal Medicine 12/17/16 [place] [address] [place] [address] [address] [place] [address] Pulmonary Disease 02/07/21 Tutor Relationship Specialty Start Date End Date Babar Phillip MD [address] [place], [place] 792061 PCP - General Internal Medicine 12/17/16 Deanne Patterson MD 1945 [facility] [address] [place], [place] 503915 Pulmonary Disease 02/07/21 Team Status: Inactive Member Role Status Dates Dr. Babar Phillip MD Primary Care Provider Active Dr. Kamron Cobb MD Attending Provider, Referring Pr ovider Active Tutor Relationship Specialty Start Date End Date Babar Phillip MD [address] [place], [place] 044621 PCP - General Internal Medicine 12/17/16 Deanne Patterson MD 1945 [facility] [address] [place], [place] 097575 Pulmonary Disease 02/07/21 Tutor Relationship Specialty Start Date End Date Babar Phillip MD [address] [place], [place] 051251 PCP - General Internal Medicine 12/17/16 Deanne Patterson MD 1945 [facility] [address] [place], [place] 798505 Pulmonary Disease 02/07/21 Tutor Relationship Specialty Start Date End Date Babar Phillip MD [address] [place], [place] 028991 PCP - General Internal Medicine 12/17/16 Deanne Patterson MD 1945 [facility] [address] [place], [place] 397335 Pulmonary Disease 02/07/21 Tutor Relationship Specialty Start Date End Date Babar Phillip MD [address] [place], [place] 022561 PCP - General Internal Medicine 12/17/16 Deanne Patterson MD 1945 [facility] [address] [place], [place] 131255 Pulmonary Disease 02/07/21 Tutor Relationship Specialty Start Date End Date Babar Phillip MD [address] [place], [place] 473551 PCP - General Internal Medicine 12/17/16 Deanne Patterson MD 1945 [facility] [address] [place], [place] 200905 Pulmonary Disease 02/07/21 Tutor Relationship Specialty Start Date End Date Babar Phillip MD [address] [place], [place] 335801 PCP - General Internal Medicine 12/17/16 Deanne Patterson MD 1945 [facility] [address] [place], [place] [address]0075 Pulmonary Disease 02/07/21 Tutor Relationship Specialty Start Date End Date Babar Phillip MD [address] [place], [place] 491601 PCP - General Internal Medicine 12/17/16 Deanne Patterson MD 1945 [facility] [address] [place], [place] 992945 Pulmonary Disease 02/07/21 Tutor Relationship Specialty Start Date End Date Babar Phillip MD [address] [place], [place] 992321 PCP - General Internal Medicine 12/17/16 Deanne Patterson MD 1945 [facility] [address] [place], [place] 246755 Pulmonary Disease 02/07/21 Tutor Relationship Specialty Start Date End Date Babar Phillip MD [address] [place], [place] 501891 PCP - General Internal Medicine 12/17/16 Deanne Patterson MD 1945 [facility] [address] [place], [place] 12875685 Pulmonary Disease 02/07/21 Tutor Relationship Specialty Start Date End Date Babar Phillip MD [address] [place], [place] 707751 PCP - General Internal Medicine 12/17/16 Deanne Patterson MD 1945 [facility] [address] [place], [place] 775475 Pulmonary Disease 02/07/21 Tutor Relationship Specialty Start Date End Date Babar Phillip MD [address] [place], [place] 607761 PCP - General Internal Medicine 12/17/16 Deanne Patterson MD 1945 [facility] [address] [place] [address] Pulmonary Disease 02/07/21 Tutor Relationship Specialty Start Date End Date Babar Phillip MD [address] [place], [place] 224461 PCP - General Internal Medicine 12/17/16 Deanne Patterson MD 1945 [facility] [address] [place], [place] 479885 Pulmonary Disease 02/07/21 Tutor Relationship Specialty Start Date End Date Babar Phillip MD [address] [place], [place] 597301 PCP - General Internal Medicine 12/17/16 Deanne Patterson MD 1945 [facility] [address] [place], [place] 902295 Pulmonary Disease 02/07/21 Tutor Relationship Specialty Start Date End Date Babar Phillip MD [address] [place], [place] 627091 PCP - General Internal Medicine 12/17/16 Deanne Patterson MD 1945 [facility] [address] [place] [address] Pulmonary Disease 02/07/21 Tutor Relationship Specialty Start Date End Date Babar Phillip MD [address] [place], [place] 451061 PCP - General Internal Medicine 12/17/16 Deanne Patterson MD 1945 [facility] [address] [place] [address] Pulmonary Disease 02/07/21 Tutor Relationship Specialty Start Date End Date Babar Phillip MD [address] [place] [address] PCP - General Internal Medicine 12/17/16 Deanne Patterson MD 1945 [facility] [address] [place] [address] Pulmonary Disease 02/07/21 Tutor Relationship Specialty Start Date End Date Babar Phillip MD [address] [place], [place] 082151 PCP - General Internal Medicine 12/17/16 Deanne Patterson MD 1945 [facility] [address] [place] [address] Pulmonary Disease 02/07/21 Tutor Relationship Specialty Start Date End Date Babar Phillip MD [address] [place], [place] 065411 PCP - General Internal Medicine 12/17/16 Deanne Patterson MD 1945 [facility] [address] [place] [address] Pulmonary Disease 02/07/21 Tutor Relationship Specialty Start Date End Date Babar Phillip MD [address] [place], [place] 634051 PCP - General Internal Medicine 12/17/16 Deanne Patterson MD 1945 [facility] [address] [place] [address] Pulmonary Disease 02/07/21 Tutor Relationship Specialty Start Date End Date Babar Phillip MD [address] [place], [place] 130181 PCP - General Internal Medicine 12/17/16 Deanne Patterson MD 1945 [facility] [address] [place] [address] Pulmonary Disease 02/07/21 Tutor Relationship Specialty Start Date End Date Babar Phillip MD [address] [place], [place] 568371 PCP - General Internal Medicine 12/17/16 Deanne Patterson MD 1945 [facility] [address] [place] [address] Pulmonary Disease 02/07/21 Tutor Relationship Specialty Start Date End Date Babar Phillip MD [address] [place], [place] 490371 PCP - General Internal Medicine 12/17/16 Deanne Patterson MD 1945 [facility] [address] [place] [address] Pulmonary Disease 02/07/21 Tutor Relationship Specialty Start Date End Date Babar Phillip MD [address] [place] [address] PCP - General Internal Medicine 12/17/16 Deanne Patterson MD 1945 [facility] [address] [place] [address] Pulmonary Disease 02/07/21 Tutor Relationship Specialty Start Date End Date Babar Phillip MD [address] [place] [address] PCP - General Internal Medicine 12/17/16 Deanne Patterson MD [address] [place] [address] [address] [place] [address] Pulmonary Disease 02/07/21 Tutor Relationship Specialty Start Date End Date Babar Phillip MD [address] [place], [place] 951151 PCP - General Internal Medicine 12/17/16 Deanne Patterson MD [address] [place] [address] [address] [place] [address] Pulmonary Disease 02/07/21 Tutor Relationship Specialty Start Date End Date Babar Phillip MD [address] [place], [place] 329401 PCP - General Internal Medicine 12/17/16 Deanne Patterson MD [address] [place] [address] [address] [place] [address] Pulmonary Disease 02/07/21 Tutor Relationship Specialty Start Date End Date Babar Phillip MD [address] [place], [place] 560571 PCP - General Internal Medicine 12/17/16 Deanne Patterson MD [address] [place] [address] [address] [place], [place] 327485 Pulmonary Disease 02/07/21 Tutor Relationship Specialty Start Date End Date Babar Phillip MD [address] [place], [place] 550081 PCP - General Internal Medicine 12/17/16 Deanne Patterson MD 1945 [facility] [address] [place], [place] 329235 Pulmonary Disease 02/07/21 Tutor Relationship Specialty Start Date End Date Babar Phillip MD [address] [place], [place] 760611 PCP - General Internal Medicine 12/17/16 Deanne Patterson MD 1945 [facility] [address] [place] [address] Pulmonary Disease 02/07/21 Tutor Relationship Specialty Start Date End Date Babar Phillip MD [address] [place], [place] 557131 PCP - General Internal Medicine 12/17/16 Deanne Patterson MD 1945 [facility] [address] [place], [place] 603435 Pulmonary Disease 02/07/21 Tutor Relationship Specialty Start Date End Date Babar Phillip MD [address] [place], [place] 217451 PCP - General Internal Medicine 12/17/16 Deanne Patterson MD 1945 [facility] [address] [place] [address] Pulmonary Disease 02/07/21 Tutor Relationship Specialty Start Date End Date Babar Phillip MD [address] [place], [place] 065561 PCP - General Internal Medicine 12/17/16 Deanne Patterson MD 1945 [facility] [address] [place], [place] 449035 Pulmonary Disease 02/07/21 Tutor Relationship Specialty Start Date End Date Babar Phillip MD [address] [place], [place] 062181 PCP - General Internal Medicine 12/17/16 Deanne Patterson MD 1945 [facility] [address] [place], [place] 747485 Pulmonary Disease 02/07/21 Tutor Relationship Specialty Start Date End Date Babar Phillip MD [address] [place] [address] PCP - General Internal Medicine 12/17/16 Tutor Relationship Specialty Start Date End Date Babar Phillip MD [address] [place] [address] PCP - General Internal Medicine 12/17/16 Tutor Relationship Specialty Start Date End Date Babar Phillip MD [address] [place], [place] 240461 PCP - General Internal Medicine 12/17/16 Deanne Patterson MD 1945 [facility] [address] [place] [address] Pulmonary Disease 02/07/21 Tutor Relationship Specialty Start Date End Date Babar Phillip MD [address] [place], [place] 405031 PCP - General Internal Medicine 12/17/16 Deanne Patterson MD 1945 [facility] [address] [place] [address] Pulmonary Disease 02/07/21 Tutor Relationship Specialty Start Date End Date Babar Phillip MD [address] [place], [place] 697251 PCP - General Internal Medicine 12/17/16 Deanne Patterson MD 1945 [facility] [address] [place] [address] Pulmonary Disease 02/07/21 Tutor Relationship Specialty Start Date End Date Babar Phillip MD [address] [place], [place] 867511 PCP - General Internal Medicine 12/17/16 Deanne Patterson MD 1945 [facility] [address] [place] [address] Pulmonary Disease 02/07/21 Tutor Relationship Specialty Start Date End Date Babar Phillip MD [address] [place], [place] 779331 PCP - General Internal Medicine 12/17/16 Deanne Patterson MD 1945 [facility] [address] [place], [place] 810955 Pulmonary Disease 02/07/21 Tutor Relationship Specialty Start Date End Date Babar Phillip MD [address] [place] [address] PCP - General Internal Medicine 12/17/16 Deanne Patterson MD 1945 [facility] [address] [place], [place] 071895 Pulmonary Disease 02/07/21 Lani Mendez PA-C [address] [place] [address] [facility] 04/23/24 Caryn Lowery APRN.ICT SUPPORT ENGINEER [address] [place] [address] [facility] 04/23/24 Zeinab Garcia PA-C [address] [place] [address] [facility] 04/23/24 Tutor Relationship Specialty Start Date End Date Babar Phillip MD [address] [place] [address] PCP - General Internal Medicine 12/17/16 Deanne Patterson MD 1945 [facility] [address] [place] [address] Pulmonary Disease 02/07/21 Lani Mendez PA-C [address] [place], [place] 8109277 [phone] [facility] 04/23/24 Caryn Lowery APRN.ICT SUPPORT ENGINEER [address] [place] [address] [facility] 04/23/24 Zeinab Garcia PA-C [address] [place] [address] [facility] 04/23/24 Tutor Relationship Specialty Start Date End Date Babar Phillip MD [address] [place] [address] PCP - General Internal Medicine 12/17/16 Deanne Patterson MD 1945 [facility] [address] [place], [place] 042565 Pulmonary Disease 02/07/21 Lani Mendez PA-C [address] [place] [address] [facility] 04/23/24 Sebastián, LILI Rubin.ICT SUPPORT ENGINEER [address] [place] [address] [facility] 04/23/24 Zeinab Garcia PA-C [address] [place], [place] 376201 [facility] 04/23/24 Tutor Relationship Specialty Start Date End Date Babar Pihllip MD [address] [place], [place] 433461 PCP - General Internal Medicine 12/17/16 Deanne Patterson MD 1945 [facility] [address] [place], [place] 193765 Pulmonary Disease 02/07/21 Lani Mendez PA-C [address] [place] [address] [facility] 04/23/24 Caryn Lowery APRN.ICT SUPPORT ENGINEER [address] [place] [address] [facility] 04/23/24 Zeinab Garcia PA-C [address] [place] [address] [facility] 04/23/24 Tutor Relationship Specialty Start Date End Date Babar Phillip MD [address] [place] [address] PCP - General Internal Medicine 12/17/16 Deanne Patterson MD [facility] [address] [place], [place] 949485 Pulmonary Disease 02/07/21 Lani Mendez PA-C [address] [place] [address] [facility] 04/23/24 Caryn Lowery APRN.ICT SUPPORT ENGINEER [address] [place] [address] [facility] 04/23/24 Zeinab Garcia PA-C [address] [place] [address] [facility] 04/23/24 Tutor Relationship Specialty Start Date End Date Babar Phillip MD [address] [place] [address] PCP - General Internal Medicine 12/17/16 Deanne Patterson MD 1945 [facility] [address] [place] [address] Pulmonary Disease 02/07/21 Lani Mendez PA-C [address] [place] [address] [facility] 04/23/24 Caryn Lowery APRN.ICT SUPPORT ENGINEER [address] [place] [address] [facility] 04/23/24 Zeinab Garcia PA-C [address] [place] [address] [facility] 04/23/24 Tutor Relationship Specialty Start Date End Date Babar Phillip MD [address] [place] [address] PCP - General Internal Medicine 12/17/16 Deanne Patterson MD 1945 [facility] [address] [place] [address] Pulmonary Disease 02/07/21 Lani Mendez PA-C [address] [place] [address] [facility] 04/23/24 Caryn Lowery APRN.ICT SUPPORT ENGINEER [address] [place], [place] 814641 [facility] 04/23/24 Zeinab Garcia PA-C [address] [place], [place] 711191 [facility] 04/23/24 Tutor Relationship Specialty Start Date End Date Babar Phillip MD [address] [place], [place] 455281 PCP - General Internal Medicine 12/17/16 Deanne Patterson MD 1945 [facility] [address] [place], [place] 7469[address] Pulmonary Disease 02/07/21 Lani Mendez PA-C [address] [place] [address] [facility] 04/23/24 Caryn Lowery APRN.ICT SUPPORT ENGINEER [address] [place], [place] 897741 [facility] 04/23/24 Zeinab Garcia PA-C [address] [place] [address] [facility] 04/23/24 Tutor Relationship Specialty Start Date End Date Babar Phillip MD [address] [place] [address] PCP - General Internal Medicine 12/17/16 Deanne Patterson MD 1945 [facility] [address] [place], [place] 242545 Pulmonary Disease 02/07/21 Lani Mendez PA-C [address] [place] [address] [facility] 04/23/24 Caryn Lowery APRN.ICT SUPPORT ENGINEER [address] [place] [address] [facility] 04/23/24 Zeinab Garcia PA-C [address] [place] [address] [facility] 04/23/24 Tutor Relationship Specialty Start Date End Date Babar Phillip MD [address] [place] [address] PCP - General Internal Medicine 12/17/16 Deanne Patterson MD [address] [place] [address] [place] [address] Pulmonary Disease 02/07/21 Lani Mendez PA-C [address] [place] [address] [facility] 04/23/24 08/06/24 Caryn Lowery APRN.ICT SUPPORT ENGINEER [address] [place] [address] [facility] 04/23/24 Zeinab Garcia PA-C [address] [place] [address] [facility] 04/23/24 08/06/24 Tutor Relationship Specialty Start Date End Date Babar Phillip MD [address] [place] [address] PCP - General Internal Medicine 12/17/16 Deanne Patterson MD 1945 [facility] [address] [place], [place] 828445 Pulmonary Disease 02/07/21 Older, LILI Rubin.ICT SUPPORT ENGINEER [address] [place], [place] 541801 [facility] 04/23/24 Tutor Relationship Specialty Start Date End Date Babar Phillip MD [address] [place], [place] 879021 PCP - General Internal Medicine 12/17/16 Deanne Patterson MD [address] [place] [address] [address] [place], [place] 497475 Pulmonary Disease 02/07/21 Older, LEE RubinN.ICT SUPPORT ENGINEER [address] [place] [address] [facility] 04/23/24 Tutor Relationship Specialty Start Date End Date Babar Phillip MD [address] [place] [address] PCP - General Internal Medicine 12/17/16 Deanne Patterson MD 1945 [facility] [address] [place], [place] 556045 Pulmonary Disease 02/07/21 Older, LEE RubinN.ICT SUPPORT ENGINEER [address] [place] [address] [facility] 04/23/24 Tutor Relationship Specialty Start Date End Date Babar Phillip MD [address] [place], [place] 347241 PCP - General Internal Medicine 12/17/16 Deanne Patterson MD 1945 [facility] [address] [place], [place] 317775 Pulmonary Disease 02/07/21 Older, LEE RubinN.ICT SUPPORT ENGINEER [address] [place], [place] 394044 [phone] [facility] 04/23/24 Tutor Relationship Specialty Start Date End Date Babar Phillip MD [address] [place] [address] PCP - General Internal Medicine 12/17/16 Deanne Patterson MD 1945 [facility] [address] [place], [place] 376015 Pulmonary Disease 02/07/21 Sebastián, LEE RubinN.ICT SUPPORT ENGINEER [address] [place] [address] [facility] 04/23/24 Tutor Relationship Specialty Start Date End Date Babar Phillip MD [address] [place] [address] PCP - General Internal Medicine 12/17/16 Deanne Patterson MD 1945 [facility] [address] [place], [place] 270955 Pulmonary Disease 02/07/21 Sebastián, LILI Rubin.ICT SUPPORT ENGINEER [address] [place] [address] [facility] 04/23/24 Tutor Relationship Specialty Start Date End Date Babar Phillip MD [address] [place] [address] PCP - General Internal Medicine 12/17/16 Deanne Patterson MD 6 [facility] [address] [place], [place] 227675 Pulmonary Disease 02/07/21 Older, LILI Rubin.ICT SUPPORT ENGINEER [address] [place] [address] [facility] 04/23/24 Tutor Relationship Specialty Start Date End Date Babar Phillip MD [address] [place], [place] 511664 [phone] PCP - General Internal Medicine 12/17/16 Deanne Patterson MD 1945 [facility] [address] [place], [place] 735055 Pulmonary Disease 02/07/21 Caryn Lowery APRN.ICT SUPPORT ENGINEER [address] [place] [address] [facility] 04/23/24 Tutor Relationship Specialty Start Date End Date Babar Phillip MD [address] [place] [address] PCP - General Internal Medicine 12/17/16 Deanne Patterson MD 6 [facility] [address] [place], [place] 0786[address] Pulmonary Disease 02/07/21 Older, LEE RubinN.ICT SUPPORT ENGINEER [address] [place], [place] 543341 [facility] 04/23/24 Tutor Relationship Specialty Start Date End Date Babar Phillip MD [address] [place], [place] 497391 PCP - General Internal Medicine 12/17/16 Deanne Patterson MD 1946 [facility] [address] [place], [place] 710[address] Pulmonary Disease 02/07/21 Older, LEE RubinN.ICT SUPPORT ENGINEER [address] [place], [place] 254251 [facility] 04/23/24 Tutor Relationship Specialty Start Date End Date Babar Phillip MD [address] [place], [place] 882751 PCP - General Internal Medicine 12/17/16 Deanne Patterson MD 1946 [facility] [address] [place], [place] 32401685 Pulmonary Disease 02/07/21 Older, Caryn, ARCHITECTURAL DRAFTSMAN.ICT SUPPORT ENGINEER [address] [place], [place] 374781 [facility] 04/23/24 Care Team (unrecognized sect ion and content) Care Team Personnel Name: SARAH GORDILLO MD Member Role: Primary Care Physician Address: Address: [address] [place] [address]- Care Team Related Persons Name: KATIE REINOSO Name: KATIE REINOSO Name: ARLETH, KATIE Name: ARLETH, KATIE Name: ARLETH, KATIE Name: ISMAEL ASAF FOR RECORDS PERTAINING TO PATIENTS WHO ARE OR HAVE BEEN ENROLLED IN A CHEMICAL DEPENDENCY/SUBSTANCEABUSE PROGRAM, SOME INFORMATION MAY BE OMITTED. This clinical summary was aggregated from multiple sources. Caution should be exercised in using it in the provision of clinical care. This summary normalizes information from multiple sources, and as a consequence, information in this document may materially change the coding, format and clinical context of patient data. In addition, data may be omitted in some cases. CLINICAL DECISIONS SHOULD BE BASED ON THE PRIMARY CLINICAL RECORDS. [facility] codebender [facility]. provides no warranty or guarantee of the accuracy or completeness of information in this document.
--- OUTSIDE RECORDS SUMMARY | 2024-12-24 23:17 | XMS RPT_ITS | CCD ---
Author Organization [facility] Care Team Providers Care Developmental Mathematics Instructor Name Role Phone Babar Phillip MD Primary Care Provider Yesenia LUTZ, Deanne Unavailable RAND LUTZ, DR SMITH Primary Care Physician Babar Phillip MD Primary Care Provider Yesenia LUTZ, Deanne Unavailable ARAVIND ROQUE Attending Unavailable Dr. Babar Phillip Primary Care Provider Dr. Babar Phillip Referring Provider Fabricio DESULFURIZER HAND, DESULFURIZER HAND-C Coco Attending Provider [phone] Babar Phillip MD Primary Care Provider Dr. [...] Care Unavailable Ganta, Babar Referring Unavailable Regalado DESULFURIZER HAND, Coco Attending Unavailable Ganta, Babar Primary Care Unavailable Ganta, Babar Referring Unavailable Regalado DESULFURIZER HAND, Coco Attending Unavailable Kamron Cobb Attending Unavailable Ganta, Babar Referring Unavailable Ganta, Babar Primary Care Unavailable Ganta, Babar Primary Care Unavailable Steve Tirado Referring Unavailable Steve Tirado Attending Unavailable Regalado DESULFURIZER HAND, Coco Attending Unavailable Ganta, Babar Primary Care Unavailable Regalado DESULFURIZER HAND, Coco Referring Unavailable GANTA, BABAR Primary Care Unavailable Denbow PA-C, Lani L Unavailable Older 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 PROCESS ENGINEER.INSTRUMENT REPAIRER HELPER, Caryn Unavailable [phone] Bogner PA-C, Zeinab Unavailable Denbow PA-C, Lani [...] sources) Codeine Drug Allergy 5 Rash, Unknown [facility] Work Phone: Penicillins (antibiotic) (3 sources) Amoxicillin Drug Allergy 5 Other: See Comments [facility] Sulfonamides (antibiotic) (3 sources) Sulfonamides (Antibiotic) Drug Allergy 5 [facility] (20 sources) Amoxicillin; Translations: [amoxicillin] Drug Allergy 5 Other: See Comments [facility] (20 sources) Codeine; Translations: [codeine] Drug Allergy 5 Anaphylaxis [facility] Work Phone: (20 sources) Sulfonamides (Antibiotic); Translations: [sulfa drugs] Propensity to adverse reactions 5 [facility] Work Phone: (20 sources) Propoxyphene N-Acetaminophen; Translations: [PROPOXYPHENE N-ACETAMINOPHEN] Propensity to adverse reactions 7 [facility] Work Phone: (5 sources) Penicillin; Translations: [penicillins] Drug Allergy [facility] (20 sources) Propoxyphene; Translations: [PROPOXYPHENE] Drug Allergy 9 Rash, Unknown [facility] (6 sources) Propoxyphene; Translations: [propoxyphene napsylate] Drug Allergy 3 Rash [facility] (5 sources) Sulfonamides (Antibiotic) Allergy to substance 3 Anaphylaxis [facility] (1 source) Ritonavir Drug Allergy 3 Vomiting [facility] (2 sources) nirmatrelvir; Translations: [nirmatrelvir] Allergy to substance 3 Vomiting [facility] (4 sources) Sulfonamide; Translations: [sulfa drugs] Drug allergy [facility] (1 source) Amoxicillin Drug Allergy 4 [facility] (1 source) celecoxib Drug Allergy 4 [facility] (1 source) Codeine Drug Allergy 4 [facility] (1 source) Ritonavir Drug Allergy 4 [facility] (1 source) Sulfonamides (Antibiotic) Drug allergy (disorder) 4 [facility] (1 source) Penicillin; Translations: [penicillins] Drug Allergy [facility] Medications Current Medications Medication Drug Class(es) Dates Sig (Normalized) Sig (Original) [id number] 200 actuat albuterol 0.09 mg/actuat metered dose [...] extended release oral tablet (1 source) Uncompetitive Z-ysmcse-K-aspartate Receptor Antagonist, Sigma-1 Agonist Start: 025 End: [...] Start: 11-13-2019 take 2 tablets by mo [facility] once daily Famotidine (Pepcid) 20 mg tablet Active 40 MG PO DAILY November 12, 2019 11:00pm Comment on above: Take 1 tablet by [facility] twice daily. Take 1 tablet by [facility] daily at bedtime. flash glucose scanning reader [...] 05-14-2022 flash glucose sensor (FREEST YLE ANA PAULA [...] / neomycin 3.5 mg/ml / polymyxin b 22375 unt/ml otic suspension (1 source) Aminoglycoside Antibacterial, Polymyxin-class Antibacterial, Corticosteroid Start: 12-22-2024 End: 12-29-2024 dezoygeg-zgzusgcmw-twmtaiwqf isone (CORTISPORIN) 3.5-10,000-1 mg/mL-unit/mL-% otic suspension Use [...] Comment on above: Take 1 tablet by [facility] every 8 hours as needed for nausea/vomiting [...] on above: Take 2 tablets by mo [facility] once daily for 4 days. Take daily [...] on above: Take 1 capsule by mo [facility] daily at bedtime. TAKE 1 CAPSULE BY MO [facility] AT BEDTIME perflutren lipid microspheres 1.3 mL [...] 10 mL injection (DEFINITY) polyethylene glycol 3350 27433 mg powder for oral solution (8 sources) [...] Basophils (Bld) [#/Vol] 0.04 10*3/uL Normal <0.11 [facility] Comment on above: Order Comment: Speci men Type: BLOOD SPECIMENOrdering Facility: [facility] Address: [address] [place] [address] Performed By: #### 5 7021-8 ####[facility] LABCLIA [id number] [place] [address] [place] Basophils/100 WBC (Bld) 0.4 % Normal [facility] Comment on above: Order Comment: Speci men Type: BLOOD SPECIMENOrdering Facility: [facility] Address: [address] [place] [address] Performed By: #### 5 7021-8 ####[facility] LABIA [id number] [place] [id number] [place] Differential cell count method Nom (Bld) Auto Normal [facility] Comment on above: Order Comment: Speci men Type: BLOOD SPECIMENOrdering Facility: [facility] Address: [address] [place] [address] Performed By: #### 5 7021-8 ####[facility] LABCLIA [id number] [place] [address] [place] Eosinophils (Bld) [#/Vol] 0.07 10*3/uL Normal <0.46 [facility] Comment on above: Order Comment: Speci men Type: BLOOD SPECIMENOrdering Facility: [facility] Address: [address] [place] [address] Performed By: #### 5 7021-8 ####[facility] LABCLIA [id number] [place] [address] [place] Eosinophils/100 WBC (Bld) 0.7 % Normal [facility] Comment on above: Order Comment: Speci men Type: BLOOD SPECIMENOrdering Facility: [facility] Address: [address] [place] [address] Performed By: #### 5 7021-8 ####[facility] LABCLIA [id number] [place] [address] [place] Erythrocyte distribution width (RBC) [Ratio] 14.7 % Normal 11.5-15.0 [facility] Comment on above: Order Comment: Speci men Type: BLOOD SPECIMENOrdering Facility: [facility] Address: [address] [place] [address] Performed By: #### 5 7021-8 ####[facility] LABCLIA [id number] [place] [address] [place] Hematocrit (Bld) [Volume fraction] 46.5 % High 36.0-46.0 [facility] Comment on above: Order Comment: Speci men Type: BLOOD SPECIMENOrdering Facility: [facility] Address: [address] [place] [address] Performed By: #### 5 7021-8 ####[facility] LABCLIA [id number] [place] [address] [place] Hemoglobin (Bld) [Mass/Vol] 14.7 g/dL Normal 11.5-15.5 [facility] Comment on above: Order Comment: Speci men Type: BLOOD SPECIMENOrdering Facility: [facility] Address: [address] [place] [address] Performed By: #### 5 7021-8 ####[facility] LABCLIA [id number] [place] [address] [place] Immature granulocytes (Bld) [#/Vol] 0.04 10*3/uL Normal <0.10 [facility] Comment on above: Order Comment: Speci men Type: BLOOD SPECIMENOrdering Facility: [facility] Address: [address] [place] [address] Performed By: #### 5 7021-8 ####[facility] LABIA [id number] [place] [address] [place] Immature granulocytes/100 WBC (Bld) 0.4 % Normal [facility] Comment on above: Order Comment: Speci men Type: BLOOD SPECIMENOrdering Facility: [facility] Address: [address] [place] [address] Performed By: #### 5 7021-8 ####[facility] LABCLIA [id number] [place] [address] [place] Lymphocytes (Bld) [#/Vol] 2.37 10*3/uL Normal 1.00-4.00 [facility] Comment on above: Order Comment: Speci men Type: BLOOD SPECIMENOrdering Facility: [facility] Address: [address] [place] [address] Performed By: #### 5 7021-8 ####[facility] LABCLIA [id number] [address] [place] Lymphocytes/100 WBC (Bld) 22.9 % Normal [facility] Comment on above: Order Comment: Speci men Type: BLOOD SPECIMENOrdering Facility: [facility] Address: [address] [place] [address] Performed By: #### 5 7021-8 ####[facility] LABCLIA [id number] [place] [address] [place] MCH (RBC) [Entitic mass] 29.9 pg Normal 26.0-34.0 [facility] Comment on above: Order Comment: Speci men Type: BLOOD SPECIMENOrdering Facility: [facility] Address: [address] [place] [address] Performed By: #### 5 7021-8 ####[facility] LABCLIA [id number] [address] [place] MCHC (RBC) [Mass/Vol] 31.6 g/dL Normal 30.5-36.0 [facility] Comment on above: Order Comment: Speci men Type: BLOOD SPECIMENOrdering Facility: [facility] Address: [address] [place] [address] Performed By: #### 5 7021-8 ####[facility] LABIA [id number] [place] [address] [place] MCV (RBC) [Entitic vol] 94.5 fL Normal 80.0-100.0 [facility] Comment on above: Order Comment: Speci men Type: BLOOD SPECIMENOrdering Facility: [facility] Address: [address] [place] [address] Performed By: #### 5 7021-8 ####[facility] LABCLIA [id number] [place] [address] [place] Monocytes (Bld) [#/Vol] 0.71 10*3/uL Normal <0.87 [facility] Comment on above: Order Comment: Speci men Type: BLOOD SPECIMENOrdering Facility: [facility] Address: [address] [place] [address] Performed By: #### 5 7021-8 ####[facility] LABCLIA [id number] [place] [address] [place] Monocytes/100 WBC (Bld) 6.8 % Normal [facility] Comment on above: Order Comment: Speci men Type: BLOOD SPECIMENOrdering Facility: [facility] Address: [address] [place] [address] Performed By: #### 5 7021-8 ####[facility] LABCLIA [id number] [place] [address] [place] Neutrophils (Bld) [#/Vol] 7.14 10*3/uL Normal 1.45-7.50 [facility] Comment on above: Order Comment: Speci men Type: BLOOD SPECIMENOrdering Facility: [facility] Address: [address] [place] [address] Performed By: #### 5 7021-8 ####[facility] LABCLIA [id number] [place] [address] [place] Neutrophils/100 WBC (Bld) 68.8 % Normal [facility] Comment on above: Order Comment: Speci men Type: BLOOD SPECIMENOrdering Facility: [facility] Address: [address] [place] [address] Performed By: #### 5 7021-8 ####[facility] LABCLIA [id number] [place] [id number] [place] Nucleated RBC (Bld) [#/Vol] 10*3/uL Normal <0.01 [facility] Comment on above: Order Comment: Speci men Type: BLOOD SPECIMENOrdering Facility: [facility] Address: [address] [place] [address] Performed By: #### 5 7021-8 ####[facility] LABCLIA [id number] [place] [address] [place] Nucleated RBC/100 WBC (Bld) [Ratio] 0.0 /100 WBC Normal [facility] Comment on above: Order Comment: Speci men Type: BLOOD SPECIMENOrdering Facility: [facility] Address: [address] [place] [address] Performed By: #### 5 7021-8 ####[facility] LABIA [id number] [place] [address] [place] Platelet mean volume (Bld) [Entitic vol] 10.0 fL Normal 9.0-12.7 [facility] Comment on above: Order Comment: Speci men Type: BLOOD SPECIMENOrdering Facility: [facility] Address: [address] [place] [address] Performed By: #### 5 7021-8 ####[facility] LABCLIA [id number] [place] [address] [place] Platelets (Bld) [#/Vol] 273 10*3/uL Normal 150-400 [facility] Comment on above: Order Comment: Speci men Type: BLOOD SPECIMENOrdering Facility: [facility] Address: [address] [place] [address] Performed By: #### 5 7021-8 ####[facility] LABIA [id number] [place] [address] [place] RBC (Bld) [#/Vol] 4.92 10*6/uL Normal 3.90-5.20 [facility] Comment on above: Order Comment: Speci men Type: BLOOD SPECIMENOrdering Facility: [facility] Address: [address] [place] [address] Performed By: #### 5 7021-8 ####[facility] LABCLIA [id number] [place] [id number] [place] WBC (Bld) [#/Vol] 10.37 10*3/uL Normal 3.70-11.00 [facility] Comment on above: Order Comment: Speci men Type: BLOOD SPECIMENOrdering Facility: [facility] Address: [address] [place] [address] Performed By: #### 5 7021-8 ####[facility] LABCLIA [id number] [address] [address] [place] CNOVon 12-22-2024 CNOV Normal [facility] metabolic 2000 panelon 12-22-2024 Albumin [Mass/Vol] 4.1 g/dL Normal 3.9-4.9 [facility] Comment on above: Order Comment: Speci men Type: BLOOD SPECIMENOrdering Facility: [facility] Address: [address] [place] [address] Performed By: #### 2 4323-8 ####[facility] LABCLIA [id number] [place] [id number] [place] ALP [Catalytic activity/Vol] 109 U/L Normal 34-123 [facility] Comment on above: Order Comment: Speci men Type: BLOOD SPECIMENOrdering Facility: [facility] Address: [address] [place] [address] Performed By: #### 2 4323-8 ####[facility] LABCLIA [id number] [address] [address] [place] ALT [Catalytic activity/Vol] 20 U/L Normal 7-38 [facility] Comment on above: Order Comment: Speci men Type: BLOOD SPECIMENOrdering Facility: [facility] Address: [address] [place] [address] Performed By: #### 2 4323-8 ####[facility] LABCLIA [id number] [address] [address] [place] Anion gap [Moles/Vol] 13 mmol/L Normal 8-15 [facility] Comment on above: Order Comment: Speci men Type: BLOOD SPECIMENOrdering Facility: [facility] Address: [address] [place] [id number] Performed By: #### 2 4323-8 ####[facility] LABCLIA [id number] [address] [address] [place] AST [Catalytic activity/Vol] 21 U/L Normal 13-35 [facility] Comment on above: Order Comment: Speci men Type: BLOOD SPECIMENOrdering Facility: [facility] Address: [address] [place] [address] Performed By: #### 2 4323-8 ####[facility] LABCLIA [id number] [address] [address] [place] Bilirubin [Mass/Vol] 0.3 mg/dL Normal 0.2-1.3 [facility] Comment on above: Order Comment: Speci men Type: BLOOD SPECIMENOrdering Facility: [facility] Address: [address] [place] [address] Performed By: #### 2 4323-8 ####[facility] LABCLIA [id number] [address] [address] [place] Calcium [Mass/Vol] 9.8 mg/dL Normal 8.5-10.2 [facility] Comment on above: Order Comment: Speci men Type: BLOOD SPECIMENOrdering Facility: [facility] Address: [address] [place], [place] [address] Performed By: #### 2 4323-8 ####[facility] LABCLIA [id number] [address] [place] [address] [place] Chloride [Moles/Vol] 103 mmol/L Normal 98-107 [facility] Comment on above: Order Comment: Speci men Type: BLOOD SPECIMENOrdering Facility: [facility] Address: [address] [place], [place] [address] Performed By: #### 2 4323-8 ####[facility] LABCLIA [id number] [address] [address] [place] CO2 [Moles/Vol] 23 mmol/L Normal 22-30 [facility] Comment on above: Order Comment: Speci men Type: BLOOD SPECIMENOrdering Facility: [facility] Address: [address] [place] [address] Performed By: #### 2 4323-8 ####[facility] LABCLIA [id number] [facility] [place] [address] [place] Creatinine [Mass/Vol] 0.70 mg/dL Normal 0.58-0.96 [facility] Comment on above: Order Comment: Speci men Type: BLOOD SPECIMENOrdering Facility: [facility] Address: [address] [place] [address] Performed By: #### 2 4323-8 ####[facility] LABCLIA [id number] [facility] [place] [address] [place] eGFRcr SerPlBld CKD-EPI 2020 108 mL/min/1.73m??? Normal >=60 [facility] Comment on above: Order Comment: Speci men Type: BLOOD SPECIMENOrdering Facility: [facility] Address: [address] [place] [address] Result Comment: Jen mated Glomerular Filtration Rate [...] actual GFR. Performed By: #### 2 4323-8 ####[facility] LABCLIA [id number] [place] [id number] [place] Glucose [Mass/Vol] 83 mg/dL Normal 74-99 [facility] Comment on above: Order Comment: Speci men Type: BLOOD SPECIMENOrdering Facility: [facility] Address: [address] [place] [address] Result Comment: The [place] Diabetes Association (ADA) provides guidance for cutoff [...] Standards of Medical Care in Diabetes 2016, [place] [employer]. Diabetes Care. 2016.39(Suppl 1). Performed By: #### 2 4323-8 ####[facility] LABCLIA [id number] [place] [address] [place] Potassium [Moles/Vol] 4.4 mmol/L Normal 3.7-5.1 [facility] Comment on above: Order Comment: Speci men Type: BLOOD SPECIMENOrdering Facility: [facility] Address: [address] [place] [address] Performed By: #### 2 4323-8 ####[facility] LABCLIA [id number] [place] [id number] [place] Protein [Mass/Vol] 7.7 g/dL Normal 6.3-8.0 [facility] Comment on above: Order Comment: Speci men Type: BLOOD SPECIMENOrdering Facility: [facility] Address: [address] [place] [address] Performed By: #### 2 4323-8 ####[facility] LABCLIA [id number] [place] [id number] [place] Sodium [Moles/Vol] 139 mmol/L Normal 136-144 [facility] Comment on above: Order Comment: Speci men Type: BLOOD SPECIMENOrdering Facility: [facility] Address: [address] [place] [address] Performed By: #### 2 4323-8 ####[facility] LABCLIA [id number] [place] [id number] [place] Urea nitrogen [Mass/Vol] 9 mg/dL Normal 7-21 [facility] Comment on above: Order Comment: Rashad irwin Type: BLOOD SPECIMENOrdering Facility: [facility] Address: [address] [place] [address] Performed By: #### 2 4323-8 ####[facility] LABIA [id number] [place] [id number] [place] HbA1c (Bld)on 12-22-2024 Average glucose Estimated from glycated hemoglobin (Bld) [Mass/Vol] 117 mg/dL Normal [facility] Comment on above: Order Comment: Rashad irwin Type: BLOOD SPECIMENOrdering Facility: [facility] Address: [address] [place] [address] Result Comment: eAG: (Estimated average glucose) is a calculated value from HgbA1c and is passenger relations representative of the average blood glucose level in the last 2-3 month period. Performed By: #### 5 5454-3 ####[facility] LABIA [id number] [place] [address] [place] HbA1c (Bld) [Mass fraction] 5.7 % High 4.3-5.6 [facility] Comment on above: Order Comment: Rashad irwin Type: BLOOD SPECIMENOrdering Facility: [facility] Address: [address] [place] [address] Result Comment: [place] Diabetes Association guidelines indicate that patients with HgbA1c in the range 5.7-6.4% are at increased risk for development of diabetes, and intervention by lifestyle modification may be beneficial. HgbA1c greater or equal to 6.5% is considered diagnostic of diabetes. Performed By: #### 5 5454-3 ####[facility] LABIA [id number] [address] [address] [place] CNOVon 12-21-2024 CNOV Normal [facility] CNPNon 12-21-2024 CNPN Normal [facility] CNOVon 11-20-2024 CNOV Normal [facility] CNPTOUTREACHon 10-31-2024 CNPTOUTREACH Normal [facility] CNOVon 10-20-2024 CNOV Normal [facility] CNOVon 10-17-2024 CNOV Normal [facility] .Auto Diffon 10-15-2024 Basophil, Absolute 0.0 10 3/mcL Normal 0.0-0.3 [facility] Comment on above: Performed By: #### A DIFF, ANEU, BMP, TROPHS, MDW, GFR, CBC #### [address] [address] Basophils/100 WBC (Bld) 0.4 % Normal 0.0-2.5 [facility] Comment on above: Performed By: #### A DIFF, ANEU, BMP, TROPHS, MDW, GFR, CBC #### [address] [address] Eosinophil, Absolute 0.1 10 3/mcL Normal 0.0-0.7 [facility] Comment on above: Performed By: #### A DIFF, ANEU, BMP, TROPHS, MDW, GFR, CBC #### [address] [address] Eosinophils/100 WBC (Bld) 0.6 % Normal 0.0-6.0 [facility] Comment on above: Performed By: #### A DIFF, ANEU, BMP, TROPHS, MDW, GFR, CBC #### [address] [address] Lymphocyte, Absolute 3.4 10 3/mcL Normal 0.9-4.3 [facility] Comment on above: Performed By: #### A DIFF, ANEU, BMP, TROPHS, MDW, GFR, CBC #### [address] [address] Lymphocytes/100 WBC (Bld) 29.7 % Normal 20.0-40.0 [facility] Comment on above: Performed By: #### A DIFF, ANEU, BMP, TROPHS, MDW, GFR, CBC #### [address] [address] Monocyte, Absolute 0.7 10 3/mcL Normal 0.1-1.4 [facility] Comment on above: Performed By: #### A DIFF, ANEU, BMP, TROPHS, MDW, GFR, CBC #### [place] [address] [place], [place] [address] Monocytes/100 WBC (Bld) 6.5 % Normal 2.0-13.0 [facility] Comment on above: Performed By: #### A DIFF, ANEU, BMP, TROPHS, MDW, GFR, CBC #### [address] [address] Neutrophils/100 WBC (Bld) 62.8 % Normal 50.0-75.0 [facility] Comment on above: Performed By: #### A DIFF, ANEU, BMP, TROPHS, MDW, GFR, CBC #### [address] [address] .GFRon 10-15-2024 Estimated Glomerular Filtration Rate 110 ml/min/1.73sqm Normal [facility] Comment on above: Result Comment: Stages [...] ANEU, BMP, TROPHS, MDW, GFR, CBC #### [address] [place], [place] [address] .MDWon 10-15-2024 Monocyte Distribution Width 16.00 Normal 0.00-20.00 [facility] Comment on above: Result Comment: For ED adult patients suspected of sepsis, MDW<=20.0 does not rule out sepsis or risk of sepsis Performed By: #### A DIFF, ANEU, BMP, TROPHS, MDW, GFR, CBC #### [address] [address] .NEUABSon 10-15-2024 Neutrophil, Absolute 7.1 10 3/mcL Normal 2.3-8.1 [facility] Comment on above: Performed By: #### A DIFF, ANEU, BMP, TROPHS, MDW, GFR, CBC #### [address] [address] BMPon 10-15-2024 BUN/Creatinine Ratio 20 ratio Normal 7-27 [facility] Comment on above: Performed By: #### A DIFF, ANEU, BMP, TROPHS, MDW, GFR, CBC #### [place] [id number] Calcium [Mass/Vol] 9.2 mg/dL Normal 8.4-10.2 [facility] Comment on above: Performed By: #### A DIFF, ANEU, BMP, TROPHS, MDW, GFR, CBC #### [place] [address] Chloride [Moles/Vol] 101 mmol/L Normal 98-107 [facility] Comment on above: Performed By: #### A DIFF, ANEU, BMP, TROPHS, MDW, GFR, CBC #### [place] [id number] CO2 [Moles/Vol] 27 mmol/L Normal 22-29 [facility] Comment on above: Performed By: #### A DIFF, ANEU, BMP, TROPHS, MDW, GFR, CBC #### [place] [address] Creatinine [Mass/Vol] 0.65 mg/dL Normal 0.51-0.95 [facility] Comment on above: Performed By: #### A DIFF, ANEU, BMP, TROPHS, MDW, GFR, CBC #### [place] [address] Electrolyte Balance 4.0 mEq/L Normal 4.0-15.0 [facility] Comment on above: Performed By: #### A DIFF, ANEU, BMP, TROPHS, MDW, GFR, CBC #### [address] [address] Glucose [Mass/Vol] 93 mg/dL Normal 70-105 [facility] Comment on above: Performed By: #### A DIFF, ANEU, BMP, TROPHS, MDW, GFR, CBC #### [address] [address] Potassium [Moles/Vol] 3.8 mmol/L Normal 3.5-5.1 [facility] Comment on above: Performed By: #### A DIFF, ANEU, BMP, TROPHS, MDW, GFR, CBC #### [address] [address] Sodium [Moles/Vol] 132 mmol/L Low 136-145 [facility] Comment on above: Performed By: #### A DIFF, ANEU, BMP, TROPHS, MDW, GFR, CBC #### [address] [address] Urea nitrogen [Mass/Vol] 13 mg/dL Normal 7-18 [facility] Comment on above: Performed By: #### A DIFF, ANEU, BMP, TROPHS, MDW, GFR, CBC #### [address] [address] CBCon 10-15-2024 Erythrocyte distribution width (RBC) [Ratio] 15.0 % Normal 11.5-15.5 [facility] Comment on above: Performed By: #### A DIFF, ANEU, BMP, TROPHS, MDW, GFR, CBC #### [address] [address] Hematocrit (Bld) [Volume fraction] 44.8 % Normal 34.0-46.0 [facility] Comment on above: Performed By: #### A DIFF, ANEU, BMP, TROPHS, MDW, GFR, CBC #### [address] [address] Hgb 15.1 G/dL Normal 12.0-16.0 [facility] Comment on above: Performed By: #### A DIFF, ANEU, BMP, TROPHS, MDW, GFR, CBC #### [address] [address] MCH (RBC) [Entitic mass] 30.5 pg Normal 27.0-33.0 [facility] Comment on above: Performed By: #### A DIFF, ANEU, BMP, TROPHS, MDW, GFR, CBC #### [address] [address] MCHC 33.7 G/dL Normal 32.0-36.0 [facility] Comment on above: Performed By: #### A DIFF, ANEU, BMP, TROPHS, MDW, GFR, CBC #### [address] [address] MCV (RBC) [Entitic vol] 90.5 fL Normal 80.0-99.0 [facility] Comment on above: Performed By: #### A DIFF, ANEU, BMP, TROPHS, MDW, GFR, CBC #### [address] [address] Platelet 248 10 3/mcL Normal 150-450 [facility] Comment on above: Performed By: #### A DIFF, ANEU, BMP, TROPHS, MDW, GFR, CBC #### [address] [address] Platelet mean volume (Bld) [Entitic vol] 7.5 fL Normal 6.6-10.5 [facility] Comment on above: Performed By: #### A DIFF, ANEU, BMP, TROPHS, MDW, GFR, CBC #### [address] [address] RBC 4.95 10 6/mcL Normal 4.10-5.30 [facility] Comment on above: Performed By: #### A DIFF, ANEU, BMP, TROPHS, MDW, GFR, CBC #### [facility] [address] [place], [place] [address] WBC 11.3 10 3/mcL High 4.5-10.8 [facility] Comment on above: Performed By: #### A DIFF, ANEU, BMP, TROPHS, MDW, GFR, CBC #### [facility] [address] [place], [place] [address] CT ANGIOGRAPHY CHEST W/CONTR Marcio 10-15-2024 CT [...] 10/15/2024 1:14:40 AM Ordering Provider: DAVID Aranda [facility] LABORATORYOrdered By: SYSTEM SYSTEM on 10-15-2024 [...] ng/L Male: 0-76 ng/L Testing performed on [employer] using a homogeneous sandwich chemiluminescent immunoassay based on [employer] technology. Urea nitrogen [Mass/Vol] 13 mg/dL Normal 7 - 18 mg/dL AO ADM SS Urea nitrogen/Creatinine [Mass ratio] 20 ratio Normal 7 - 27 ratio AO ADM SS WBC (Bld) [#/Vol] 11.3 103/mcL High 4.5 - 10.8 10^3/mcL AO Workflow SS PBNPon 10-15-2024 Natriuretic peptide B (Bld) [Mass/Vol] 27 pg/mL Normal 0-125 [facility] Comment on above: Result Comment: NT-p roBNP results of less than 300 pg/mL effectively rules out acute congestive heart failure with 99% negative predictive value. Performed By: #### P BNP #### [address] [address] TROPHSon 10-15-2024 High Sensitivity Troponin I 4 ng/L Normal 0-51 [facility] Comment on above: Result Comment: High Sensitive Troponin I Reference Ranges: Female: 0-51 ng/L Male: 0-76 ng/L Testing performed on [employer] using a homogeneous sandwich chemiluminescent immunoassay based on [employer] technology. Performed By: #### A DIFF, ANEU, BMP, TROPHS, MDW, GFR, CBC #### [address] [address] Bacteria Spec Resp Culton Bacteria identified Respiratory culture Nom (Unsp spec) ORGANISM ID: 1 Moderate normal respiratory wing GRAM STAIN: Many Gram positive cocci Rare Polymorphonuclear leukocytes Abnormal [facility] Comment on above: Performed By: #### 3 2355-0 ####[facility] LABCLIA [id number] [place] [address] [place] ECG COMPLETEon 10-12-2024 Atrial Rate 77 BPM [facility] Calculated P [place] 46 degrees [facility] Calculated R [place] 71 degrees [facility] Calculated T [place] 61 degrees [facility] P-R Interval 178 ms [facility] QRS Duration 68 ms [facility] QT Interval 366 ms [facility] QTC Calculation (Bazett) 414 ms [facility] Ventricular Rate 77 BPM [facility] NORMAL SINUS RHYTHM NONSPECIFIC ST ABNORMALITY ABNORMAL ECG Confirmed by MD THOMPSON QARAB ([id number]) on 10/12/2024 3:54:51 PM [facility] NAME : DARREN REINOSO PID : [id number] : 1980 Gender : Female Race : ORD : [id number] Procedure Date : Oct 11 2024 11:38:05 Edit Date : Oct 12 2024 15:54:55 Diagnosis: NORMAL SINUS RHYTHM NONSPECIFIC ST ABNORMALITY ABNORMAL ECG Confirmed by MD THOMPSON QARAB ([id number]) on 10/12/2024 3:54:51 PM Test Reason : R07.9 Chest pain, unspecified type Location : 185 : [facility] Overread By : MD THOMPSON QARAB Edited By : MD THOMPSON QARAB Referred By : , Acquired by : [id number], [facility] CBC W Auto Differential pane l (Bld)on 10-11-2024 Basophils (Bld) [#/Vol] 0.03 10*3/uL [facility] Basophils/100 WBC (Bld) 0.3 % [facility] Differential cell count method Nom (Bld) Auto [facility] Eosinophils (Bld) [#/Vol] 0.09 10*3/uL [facility] Eosinophils/100 WBC (Bld) 1 % [facility] Erythrocyte distribution width (RBC) [Ratio] 14 % 11.5 - 15.0 % [facility] Hematocrit (Bld) [Volume fraction] 44.4 % 36.0 - 46.0 % [facility] Hemoglobin (Bld) [Mass/Vol] 14 g/dL 11.5 - 15.5 g/dL [facility] Immature granulocytes (Bld) [#/Vol] 0.05 10*3/uL [facility] Immature granulocytes/100 WBC (Bld) 0.5 % [facility] Lymphocytes (Bld) [#/Vol] 2.51 10*3/uL [facility] Lymphocytes/100 WBC (Bld) 26.7 % [facility] MCH (RBC) [Entitic mass] 29.6 pg 26.0 - 34.0 pg [facility] MCHC (RBC) [Mass/Vol] 31.5 g/dL 30.5 - 36.0 g/dL [facility] MCV (RBC) [Entitic vol] 93.9 fL 80.0 - 100.0 fL [facility] Monocytes (Bld) [#/Vol] 0.61 10*3/uL [facility] Monocytes/100 WBC (Bld) 6.5 % [facility] Neutrophils (Bld) [#/Vol] 6.1 10*3/uL [facility] Neutrophils/100 WBC (Bld) 65 % [facility] Nucleated RBC (Bld) [#/Vol] NINF [facility] Nucleated RBC/100 WBC (Bld) [Ratio] 0 % /100 WBC [facility] Platelet mean volume (Bld) [Entitic vol] 10 fL 9.0 - 12.7 fL [facility] Platelets (Bld) [#/Vol] 254 10*3/uL [facility] RBC (Bld) [#/Vol] 4.73 10*6/uL 3.90 - 5.2 0 m/uL [facility] WBC (Bld) [#/Vol] 9.39 10*3/uL [facility] Basophils (Bld) [#/Vol] 0.03 10*3/uL Normal <0.11 [facility] Comment on above: Order Comment: Speci men Type: BLOOD SPECIMENOrdering Facility: [facility] Address: [address] [place] [address] Performed By: #### 5 7021-8 ####[facility] LABCLIA [id number] [place] [address] [place] Basophils/100 WBC (Bld) 0.3 % Normal [facility] Comment on above: Order Comment: Speci men Type: BLOOD SPECIMENOrdering Facility: [facility] Address: [address] [place] [address] Performed By: #### 5 7021-8 ####[facility] LABCLIA [id number] [place] [address] [place] Differential cell count method Nom (Bld) Auto Normal [facility] Comment on above: Order Comment: Speci men Type: BLOOD SPECIMENOrdering Facility: [facility] Address: [address] [place] [address] Performed By: #### 5 7021-8 ####[facility] LABCLIA [id number] [place] [address] [place] Eosinophils (Bld) [#/Vol] 0.09 10*3/uL Normal <0.46 [facility] Comment on above: Order Comment: Speci men Type: BLOOD SPECIMENOrdering Facility: [facility] Address: [address] [place] [address] Performed By: #### 5 7021-8 ####[facility] LABCLIA [id number] [place] [address] [place] Eosinophils/100 WBC (Bld) 1.0 % Normal [facility] Comment on above: Order Comment: Speci men Type: BLOOD SPECIMENOrdering Facility: [facility] Address: [address] [place] [address] Performed By: #### 5 7021-8 ####[facility] LABCLIA [id number] [place] [address] [place] Erythrocyte distribution width (RBC) [Ratio] 14.0 % Normal 11.5-15.0 [facility] Comment on above: Order Comment: Speci men Type: BLOOD SPECIMENOrdering Facility: [facility] Address: [address] [place] [address] Performed By: #### 5 7021-8 ####[facility] LABCLIA [id number] [address] [place] Hematocrit (Bld) [Volume fraction] 44.4 % Normal 36.0-46.0 [facility] Comment on above: Order Comment: Speci men Type: BLOOD SPECIMENOrdering Facility: [facility] Address: [address] [place] [address] Performed By: #### 5 7021-8 ####[facility] LABCLIA [id number] [place] [address] [place] Hemoglobin (Bld) [Mass/Vol] 14.0 g/dL Normal 11.5-15.5 [facility] Comment on above: Order Comment: Speci men Type: BLOOD SPECIMENOrdering Facility: [facility] Address: [address] [place] [address] Performed By: #### 5 7021-8 ####[facility] LABCLIA [id number] [place] [address] [place] Immature granulocytes (Bld) [#/Vol] 0.05 10*3/uL Normal <0.10 [facility] Comment on above: Order Comment: Speci men Type: BLOOD SPECIMENOrdering Facility: [facility] Address: [address] [place] [address] Performed By: #### 5 7021-8 ####[facility] LABCLIA [id number] [place] [address] [place] Immature granulocytes/100 WBC (Bld) 0.5 % Normal [facility] Comment on above: Order Comment: Speci men Type: BLOOD SPECIMENOrdering Facility: [facility] Address: [address] [place] [address] Performed By: #### 5 7021-8 ####[facility] LABIA [id number] [place] [address] [place] Lymphocytes (Bld) [#/Vol] 2.51 10*3/uL Normal 1.00-4.00 [facility] Comment on above: Order Comment: Speci men Type: BLOOD SPECIMENOrdering Facility: [facility] Address: [address] [place] [address] Performed By: #### 5 7021-8 ####[facility] LABCLIA [id number] [place] [address] [place] Lymphocytes/100 WBC (Bld) 26.7 % Normal [facility] Comment on above: Order Comment: Speci men Type: BLOOD SPECIMENOrdering Facility: [facility] Address: [address] [place] [address] Performed By: #### 5 7021-8 ####[facility] [id number] [address] [place] [facility] MCH (RBC) [Entitic mass] 29.6 pg Normal 26.0-34.0 [facility] Comment on above: Order Comment: Speci men Type: BLOOD SPECIMENOrdering Facility: [facility] Address: [address] [place] [address] Performed By: #### 5 7021-8 ####[facility] [id number] [place] [address] [place] MCHC (RBC) [Mass/Vol] 31.5 g/dL Normal 30.5-36.0 [facility] Comment on above: Order Comment: Speci men Type: BLOOD SPECIMENOrdering Facility: [facility] Address: [address] [place] [address] Performed By: #### 5 7021-8 ####[facility] [id number] [place] [address] [place] MCV (RBC) [Entitic vol] 93.9 fL Normal 80.0-100.0 [facility] Comment on above: Order Comment: Speci men Type: BLOOD SPECIMENOrdering Facility: [facility] Address: [address] [place] [address] Performed By: #### 5 7021-8 ####[facility] [id number] [place] [address] [place] Monocytes (Bld) [#/Vol] 0.61 10*3/uL Normal <0.87 [facility] Comment on above: Order Comment: Speci men Type: BLOOD SPECIMENOrdering Facility: [facility] Address: [address] [place] [address] Performed By: #### 5 7021-8 ####[facility] LABCLIA [id number] [address] [place] [address] [place] Monocytes/100 WBC (Bld) 6.5 % Normal [facility] Comment on above: Order Comment: Speci men Type: BLOOD SPECIMENOrdering Facility: [facility] Address: [address] [place] [address] Performed By: #### 5 7021-8 ####[facility] LABCLIA [id number] [address] [place] [address] [place] Neutrophils (Bld) [#/Vol] 6.10 10*3/uL Normal 1.45-7.50 [facility] Comment on above: Order Comment: Speci men Type: BLOOD SPECIMENOrdering Facility: [facility] Address: [address] [place] [address] Performed By: #### 5 7021-8 ####[facility] LABCLIA [id number] [place] [id number] [place] Neutrophils/100 WBC (Bld) 65.0 % Normal [facility] Comment on above: Order Comment: Speci men Type: BLOOD SPECIMENOrdering Facility: [facility] Address: [address] [place] [address] Performed By: #### 5 7021-8 ####[facility] LABCLIA [id number] [place] [id number] [place] Nucleated RBC (Bld) [#/Vol] 10*3/uL Normal <0.01 [facility] Comment on above: Order Comment: Speci men Type: BLOOD SPECIMENOrdering Facility: [facility] Address: [address] [place] [address] Performed By: #### 5 7021-8 ####[facility] LABCLIA [id number] [address] [place] [address] [place] Nucleated RBC/100 WBC (Bld) [Ratio] 0.0 /100 WBC Normal [facility] Comment on above: Order Comment: Speci men Type: BLOOD SPECIMENOrdering Facility: [facility] Address: [address] [place] [address] Performed By: #### 5 7021-8 ####[facility] LABIA [id number] [place] [address] [place] Platelet mean volume (Bld) [Entitic vol] 10.0 fL Normal 9.0-12.7 [facility] Comment on above: Order Comment: Speci men Type: BLOOD SPECIMENOrdering Facility: [facility] Address: [address] [place] [address] Performed By: #### 5 7021-8 ####[facility] LABIA [id number] [place] [address] [place] Platelets (Bld) [#/Vol] 254 10*3/uL Normal 150-400 [facility] Comment on above: Order Comment: Speci men Type: BLOOD SPECIMENOrdering Facility: [facility] Address: [address] [place] [address] Performed By: #### 5 7021-8 ####[facility] LABIA [id number] [place] [address] [place] RBC (Bld) [#/Vol] 4.73 10*6/uL Normal 3.90-5.20 [facility] Comment on above: Order Comment: Speci men Type: BLOOD SPECIMENOrdering Facility: [facility] Address: [address] [place] [address] Performed By: #### 5 7021-8 ####[facility] LABIA [id number] [place] [address] [place] WBC (Bld) [#/Vol] 9.39 10*3/uL Normal 3.70-11.00 [facility] Comment on above: Order Comment: Speci men Type: BLOOD SPECIMENOrdering Facility: [facility] Address: [address] [place] [id number] Performed By: #### 5 7021-8 ####[facility] LABCLIA [id number] [place] [id number] [place] CNOVon 10-11-2024 CNOV Normal [facility] metabolic 2000 panelon 10-11-2024 Albumin [Mass/Vol] 3.9 g/dL 3.9 - 4.9 g/dL [facility] ALP [Catalytic activity/Vol] 100 U/L 34 - 123 U/L [facility] ALT [Catalytic activity/Vol] 15 U/L 7 - 38 U/L [facility] Anion gap [Moles/Vol] 13 mmol/L 8 - 15 mmol/L [facility] AST [Catalytic activity/Vol] 13 U/L 13 - 35 U/L [facility] Bilirubin [Mass/Vol] 0.2 mg/dL 0.2 - 1 .3 mg/dL [facility] Calcium [Mass/Vol] 9.4 mg/dL 8.5 - 10. 2 mg/dL [facility] Chloride [Moles/Vol] 105 mmol/L 98 - 10 7 mmol/L [facility] CO2 [Moles/Vol] 22 mmol/L 22 - 30 mmol/L [facility] Creatinine [Mass/Vol] 0.62 mg/dL 0.58 - 0.96 mg/dL [facility] GFR/1.73 sq M.predicted among non-blacks MDRD (S/P/Bld) [Vol rate/Area] 111 mL/min/{1.73_m2} - PINF [facility] Comment on above: Estimated Glomerular Filtration [...] 109 mg/dL High 74 - 99 mg/dL [facility] Comment on above: The [place] Diab[employer] Association (ADA) provides guidance for [...] Standards of Medical Care in Diabetes 2016, [place] [employer]. Diabetes Care. 2016.39(Suppl 1). Potassium [Moles/Vol] 4 mmol/L 3.7 - 5.1 mmol/L [facility] Protein [Mass/Vol] 7.2 g/dL 6.3 - 8.0 g/dL [facility] Sodium [Moles/Vol] 140 mmol/L 136 - 144 mmol/L [facility] Urea nitrogen [Mass/Vol] 10 mg/dL 7 - 21 mg/dL [facility] Albumin [Mass/Vol] 3.9 g/dL Normal 3.9-4.9 [facility] Comment on above: Order Comment: Speci men Type: BLOOD SPECIMENOrdering Facility: [facility] Address: [address] [place] [address] Performed By: #### 2 4323-8, 99311-7, 39719-1, 3015-3 ####[facility] [id number] [place] [address] [place] ALP [Catalytic activity/Vol] 100 U/L Normal 34-123 [facility] Comment on above: Order Comment: Speci men Type: BLOOD SPECIMENOrdering Facility: [facility] Address: [address] [place] [address] Performed By: #### 2 4323-8, 52139-0, 75721-4, 6-3 ####[facility] LABIA [id number] [place] [address] [place] ALT [Catalytic activity/Vol] 15 U/L Normal 7-38 [facility] Comment on above: Order Comment: Speci men Type: BLOOD SPECIMENOrdering Facility: [facility] Address: [address] [place] [address] Performed By: #### 2 4323-8, 80477-5, 06170-2, 6-3 ####[facility] LABCLIA [id number] [place] [address] [place] Anion gap [Moles/Vol] 13 mmol/L Normal 8-15 [facility] Comment on above: Order Comment: Speci men Type: BLOOD SPECIMENOrdering Facility: [facility] Address: [address] [place] [address] Performed By: #### 2 4323-8, 11261-1, 65526-1, 6-3 ####[facility] LABCLIA [id number] [place] [address] [place] AST [Catalytic activity/Vol] 13 U/L Normal 13-35 [facility] Comment on above: Order Comment: Speci men Type: BLOOD SPECIMENOrdering Facility: [facility] Address: [address] [place] [address] Performed By: #### 2 4323-8, 93313-4, 76378-5, 6-3 ####[facility] LABCLIA [id number] [place] [address] [place] Bilirubin [Mass/Vol] 0.2 mg/dL Normal 0.2-1.3 [facility] Comment on above: Order Comment: Speci men Type: BLOOD SPECIMENOrdering Facility: [facility] Address: [address] [place], [place] [address] Performed By: #### 2 4323-8, 45484-6, 29968-3, 6-3 ####[facility] LABCLIA [id number] [place] [id number] [place] Calcium [Mass/Vol] 9.4 mg/dL Normal 8.5-10.2 [facility] Comment on above: Order Comment: Speci men Type: BLOOD SPECIMENOrdering Facility: [facility] Address: [address] [place], [place] [address] Performed By: #### 2 4323-8, 30732-9, 39205-5, 6-3 ####[facility] LABCLIA [id number] [place] [id number] [place] Chloride [Moles/Vol] 105 mmol/L Normal 98-107 [facility] Comment on above: Order Comment: Speci men Type: BLOOD SPECIMENOrdering Facility: [facility] Address: [address] [place] [address] Performed By: #### 2 4323-8, 32298-0, 94774-8, 6-3 ####[facility] LABCLIA [id number] [place] [address] [place] CO2 [Moles/Vol] 22 mmol/L Normal 22-30 [facility] Comment on above: Order Comment: Speci men Type: BLOOD SPECIMENOrdering Facility: [facility] Address: [address] [place] [address] Performed By: #### 2 4323-8, 86253-7, 54369-2, 6-3 ####[facility] LABCLIA [id number] [place] [address] [place] Creatinine [Mass/Vol] 0.62 mg/dL Normal 0.58-0.96 [facility] Comment on above: Order Comment: Speci men Type: BLOOD SPECIMENOrdering Facility: [facility] Address: [address] [place], [place] [address] Performed By: #### 2 4323-8, 75731-7, 08335-0, 6-3 ####[facility] LABCLIA [id number] [place] [address] [place] Creatinine and Glomerular filtration rate.predicted panel (S/P/Bld) 111 mL/min/1.73m??? Normal >=60 [facility] Comment on above: Order Comment: Speci men Type: BLOOD SPECIMENOrdering Facility: [facility] Address: [address] [place] [address] Result Comment: Jen mated Glomerular Filtration Rate [...] actual GFR. Performed By: #### 2 4323-8, 29101-6, 63406-6, 3015-3 ####[facility] LABIA [id number] [place] [address] [place] Glucose [Mass/Vol] 109 mg/dL High 74-99 [facility] Comment on above: Order Comment: Rashad irwin Type: BLOOD SPECIMENOrdering Facility: [facility] Address: [address] [place] [address] Result Comment: The [place] Diabetes Association (ADA) provides guidance for cutoff [...] Standards of Medical Care in Diabetes 2016, [place] Diabetes Association. Diabetes Care. 2016.39(Suppl 1). Performed By: #### 2 4323-8, 38342-2, 97579-0, 3 ####[facility] LABIA [id number] [place] [address] [place] Potassium [Moles/Vol] 4.0 mmol/L Normal 3.7-5.1 [facility] Comment on above: Order Comment: Rashad irwin Type: BLOOD SPECIMENOrdering Facility: [facility] Address: [address] [place] [address] Performed By: #### 2 4323-8, 74107-6, 08276-3, 6-3 ####[facility] LABIA [id number] [address] [address] [place] Protein [Mass/Vol] 7.2 g/dL Normal 6.3-8.0 [facility] Comment on above: Order Comment: Speci men Type: BLOOD SPECIMENOrdering Facility: [facility] Address: [address] [place], [place] [address] Performed By: #### 2 4323-8, 01361-8, 02486-7, 6-3 ####[facility] LABIA [id number] [place] [address] [place] Sodium [Moles/Vol] 140 mmol/L Normal 136-144 [facility] Comment on above: Order Comment: Speci men Type: BLOOD SPECIMENOrdering Facility: [facility] Address: [address] [place], [place] [address] Performed By: #### 2 4323-8, 99215-2, , 3015-3 ####[facility] LABIA [id number] [place] [address] [place] Urea nitrogen [Mass/Vol] 10 mg/dL Normal 7-21 [facility] Comment on above: Order Comment: Speci men Type: BLOOD SPECIMENOrdering Facility: [facility] Address: [address] [place], [place] [address] Performed By: #### 2 4323-8, 08127-2, 98323-0, 6-3 ####[facility] LABIA [id number] [address] [address] [place] D dimer FEU PPP-mCncon 10-11 Fibrin D-dimer FEU (PPP) [Mass/Vol] 910 ng/mL FEU High <500 [facility] Comment on above: Order Comment: Speci men Type: BLOOD SPECIMENOrdering Facility: [facility] Address: [address] [place] [address] Result Comment: Noe en Plasma Aliquot Performed By: #### 4 8065-7 ####[facility] LABCLIA [id number] [place] [address] [place] D-DIMEROrdered By: Elizabeth orona on 10-11-2024 Fibrin D-dimer FEU (PPP) [Mass/Vol] 910 High NINF [facility] Comment on above: Frozen Plasma Aliquo t ECG COMPLETEon 10-11-2024 ECG COMPLETE Normal [facility] Fibrin D-dimer FEU (PPP) [Ma ss/Vol]Ordered By: Elizabeth Mcgill on 10-11-2024 Interpretation and review of laboratory results Abnormal [facility] 500 ng/mL FEU is the D [...] et al. Odette Int Med 2016 165:253. [facility] Lipid 1996 panelon 5 Cholesterol [Mass/Vol] 243 mg/dL High NINF - 200 mg/dL [facility] Comment on above: <200 mg/dL, Desirabl e 200-239 mg/dL, Borderline high >239 mg/dL, High Cholesterol in HDL [Mass/Vol] 54 mg/dL 39 - PINF mg/dL [facility] Comment on above: 40-59 mg/dL, Accepta ble >59 mg/dL, High: Negative risk factor for coronary heart disease <40 mg/dL, Low: Positive risk factor for coronary heart disease Cholesterol in LDL [Mass/Vol] 154 mg/dL High NINF - 100 mg/dL [facility] Comment on above: <100 mg/dL, Optimal 100-129 mg/dL, Near optimal/above optimal 130-159 mg/dL, Borderline high 160-189 mg/dL, High >189 mg/dL, Very high Secondary prevention optimal LDL Cholesterol levels are recommended to be <70 mg/dL LDL cholesterol is calculated using the Hernández-NIH equation. Cholesterol in LDL/Cholesterol in HDL [Mass ratio] 2.85 {ratio} High NINF - 2.54 [facility] Comment on above: Reference: 1. National Cholesterol Education Program ATP III Guideline At-A-Glance Quick Desk Reference: National Heart, Lung, and Blood Wing. National Institutes of Health. 2001: NIH Publication No. 01-3305. 2. An International Atherosclerosis Society position paper: global recommendations for the management of dyslipidemia: executive summary, Atherosclerosis. 2014: 232(2):410-413. Cholesterol in VLDL [Mass/Vol] 37 mg/dL High NINF - 30 mg/dL [facility] Cholesterol non HDL [Mass/Vol] 189 mg/dL High NINF - 130 mg/dL [facility] Comment on above: <130 mg/dL, Optimal 130-159 mg/dL, Near optimal/above optimal 160-189 mg/dL, Borderline high 190-219 mg/dL, High >219 mg/dL, Very high Secondary prevention optimal non HDL Cholesterol levels are recommended to be <100 mg/dL Cholesterol.total/Ch olesterol in HDL [Mass ratio] 4.5 {ratio} NINF - 5.10 [facility] Fasting Time 12 hrs [facility] Triglyceride [Mass/Vol] 194 mg/dL High NINF - 150 mg/dL [facility] Comment on above: <150 mg/dL, Normal 150-199 mg/dL, Borderline high 200-499 mg/dL, High >499 mg/dL, Very high Cholesterol [Mass/Vol] 243 mg/dL High <200 [facility] Comment on above: Order Comment: Speci men Type: BLOOD SPECIMENOrdering Facility: [facility] Address: [address] [place] [address] Result Comment: <200 mg/dL, Desirable 200-239 mg/dL, Borderline high>239 mg/dL, High Performed By: #### 2 4323-8, 81009-2, , 3 ####[facility] LABCLIA [id number] [facility] [id number] [address] [place] Cholesterol in HDL [Mass/Vol] 54 mg/dL Normal >39 [facility] Comment on above: Order Comment: Speci men Type: BLOOD SPECIMENOrdering Facility: [facility] Address: [address] [place] [address] Result Comment: 40-5 9 mg/dL, Acceptable>59 mg/dL, High: Negative risk factor for coronary heart disease<40 mg/dL, Low: Positive risk factor for coronary heart disease Performed By: #### 2 4323-8, 54972-1, , 3015-07 ####[facility] LABCLIA [id number] [facility] [place] [id number] [address] [place] Cholesterol in LDL [Mass/Vol] 154 mg/dL High <100 [facility] Comment on above: Order Comment: Speci men Type: BLOOD SPECIMENOrdering Facility: [facility] Address: [address] [place] [address] Result Comment: <100 mg/dL, Optimal 100-129 mg/dL, Near optimal/above optimal 130-159 mg/dL, Borderline high 160-189 mg/dL, High>189 mg/dL, Very highSecondary prevention optimal LDL Cholesterol levels are recommended to be <70 mg/dLLDL cholesterol is calculated using the Hernández-NIH equation. Performed By: #### 2 4323-8, 83027-0, , 3015-07 ####[facility] LABCLIA [id number] [facility] [id number] [address] [place] Cholesterol in LDL/Cholesterol in HDL [Mass ratio] 2.85 {ratio} High <2.54 [facility] Comment on above: Order Comment: Speci men Type: BLOOD SPECIMENOrdering Facility: [facility] Address: [address] [place] [address] Result Comment: Petey garcia:1. National Cholesterol Education Program ATP III Guideline At-A-Glance Quick Desk Reference: National Heart, Lung, and Blood Wing. National Institutes of Health. 2001: NIH Publication No. 01-3305.2. An International Atherosclerosis Society position paper: global recommendations for the management of dyslipidemia: executive summary, Atherosclerosis. 2014: 232(2):410-413. Performed By: #### 2 4323-8, 39842-7, 64210-2, 6-3 ####[facility] LABCLIA [id number] [place] [address] [place] Cholesterol in VLDL [Mass/Vol] 37 mg/dL High <30 [facility] Comment on above: Order Comment: Speci men Type: BLOOD SPECIMENOrdering Facility: [facility] Address: [address] [place] [address] Performed By: #### 2 4323-8, 69650-7, 17915-3, 6-3 ####[facility] LABCLIA [id number] [place] [address] [place] Cholesterol non HDL [Mass/Vol] 189 mg/dL High <130 [facility] Comment on above: Order Comment: Surekhai men Type: BLOOD SPECIMENOrdering Facility: [facility] Address: [address] [place] [address] Result Comment: <130 mg/dL, Optimal 130-159 mg/dL, Near optimal/above optimal 160-189 mg/dL, Borderline high 190-219 mg/dL, High>219 mg/dL, Very highSecondary prevention optimal non HDL Cholesterol levels are recommended to be <100 mg/dL Performed By: #### 2 4323-8, 09108-3, 06719-8, 3016-3 ####[facility] LABCLIA [id number] [address] [address] [place] Cholesterol.total/Ch olesterol in HDL [Mass ratio] 4.50 {ratio} Normal <5.10 [facility] Comment on above: Order Comment: Speci men Type: BLOOD SPECIMENOrdering Facility: [facility] Address: [address] [place] [address] Performed By: #### 2 4323-8, 21884-5, 87606-5, 6-3 ####[facility] LABCLIA [id number] [place] [id number] [place] FASTING TIME 12 hrs Normal [facility] Comment on above: Order Comment: Speci men Type: BLOOD SPECIMENOrdering Facility: [facility] Address: [address] [place] [address] Performed By: #### 2 4323-8, 90257-3, 08054-5, 6-3 ####[facility] LABIA [id number] [place] [id number] [place] Triglyceride [Mass/Vol] 194 mg/dL High <150 [facility] Comment on above: Order Comment: Speci men Type: BLOOD SPECIMENOrdering Facility: [facility] Address: [address] [place] [address] Result Comment: <150 mg/dL, Normal 150-199 mg/dL, Borderline high 200-499 mg/dL, High>499 mg/dL, Very high Performed By: #### 2 4323-8, 48675-8, 07005-5, 6-3 ####[facility] LABIA [id number] [address] [address] [place] MAGNESIUMon 10-11-2024 Magnesium [Mass/Vol] 2.1 mg/dL 1.7 - 2 .3 mg/dL [facility] Magnesium SerPl-mCncon 10-11 Magnesium [Mass/Vol] 2.1 mg/dL Normal 1.7-2.3 [facility] Comment on above: Order Comment: Speci men Type: BLOOD SPECIMENOrdering Facility: [facility] Address: [address] [place] [address] Performed By: #### 2 4323-8, 52200-8, 52525-6, 3016-3 ####[facility] LABCLIA [id number] [place] [address] [place] Magnesium [Mass/Vol]on 10-11 Interpretation and review of laboratory results Normal [facility] No Panel Informationon 10-11 Interpretation and review of laboratory results Abnormal [facility] THYROID STIMULATING HORMONEo n 10-11-2024 TSH Qn 3.31 m[IU]/L [facility] Comment on above: If the patient [...] E, et al. 2017 Guidelines of the [place] Thyroid Association for the Diagnosis and Management of Thyroid Disease during and the . Thyroid, 2017:27:3:315-389. TSH Qnon 10-11-2024 Interpretation and review of laboratory results Normal [facility] TSH SerPl-aCncon 10-11-2024 TSH Qn 3.310 m[IU]/L Normal 0.270-4.200 [facility] Comment on above: Order Comment: Speci men Type: BLOOD SPECIMENOrdering Facility: [facility] Address: [address] [place] [address] Result Comment: If t he patient is , TSH reference range varies by gestational period:First Trimester (weeks 9-12): 0.180-2.990 mIU/LSecond Trimester: 0.110-3.980 mIU/LThird Trimester: 0.480-4.710 mIU/LDleighann Stringer et al. A Practical Approach for the Verifications and Determination of Site- and Trimester-Specific Reference Intervals for Thyroid Function tests in . Thyroid, 2019:29:3:412-420. Riccardo E, et al. 2017 Guidelines of the [place] Thyroid Association for the Diagnosis and Management of Thyroid Disease during and the . Thyroid, 2017:27:3:315-389. Performed By: #### 2 4323-8, 02849-3, 20088-2, 3016-3 ####[facility] LABCLIA [id number] [place] [address] [place] XR CHEST 2V FRONTAL/LATon XR CHEST 2V FRONTAL/LAT Normal [facility] XR Chest PA and Lateralon IMPRESSION: Prominence of the pulmonary markings Revenue Cycle Specialist: SARWAT Transcribe Date/Time: Oct 11 2024 12:31P Dictated by : DELIO CALDWELL MD This examination was interpreted and the report reviewed and electronically signed by: DELIO CALDWELL MD on Oct 11 2024 12:32PM [facility] DIVISION OF RADIOLOGY * * *Final Report* [...] IMPRESSION IMPRESSION: Prominence of the pulmonary markings Revenue Cycle Specialist: PSCB Transcribe Date/Time: Oct 11 2024 12:31P Dictated by : DELIO CALDWELL MD This examination was interpreted and the report reviewed and electronically signed by: DELIO CALDWELL MD on Oct 11 2024 12:32PM EST [facility] Radiology Study observation (narrative) [facility] XR Chest PA and LateralOrder ed By: Ccf Provider on 10-11-2024 [facility] CNPTOUTREACHon 10-10-2024 CNPTOUTREACH Normal [facility] HbA1c (Bld)on 07-31-2024 Average glucose Estimated from glycated hemoglobin (Bld) [Mass/Vol] 111 mg/dL Normal [facility] Comment on above: Order Comment: Rashad irwin Type: BLOOD SPECIMENOrdering Facility: [facility] Address: [address] [place] [address] Result Comment: eAG: (Estimated average glucose) is a calculated value from HgbA1c and is passenger relations representative of the average blood glucose level in the last 2-3 month period. Performed By: #### 5 5454-3 ####[facility] LABCLIA [id number] [place] [address] [place] HbA1c (Bld) [Mass fraction] 5.5 % Normal 4.3-5.6 [facility] Comment on above: Order Comment: Rashad irwin Type: BLOOD SPECIMENOrdering Facility: [facility] Address: [address] [place] [address] Result Comment: Amer [place] Diabetes Association guidelines indicate that patients with HgbA1c in the range 5.7-6.4% are at increased risk for development of diabetes, and intervention by lifestyle modification may be beneficial. HgbA1c greater or equal to 6.5% is considered diagnostic of diabetes. Performed By: #### 5 5454-3 ####[facility] LABCLIA [id number] [address] [address] [place] TSH SerPl-aCncon 07-31-2024 TSH Qn 2.850 m[IU]/L Normal 0.270-4.200 [facility] Comment on above: Order Comment: Speci men Type: BLOOD SPECIMENOrdering Facility: [facility] Address: [address] [place] [address] Result Comment: If t he patient is , TSH reference range varies by gestational period:First Trimester (weeks 9-12): 0.180-2.990 mIU/LSecond Trimester: 0.110-3.980 mIU/LThird Trimester: 0.480-4.710 mIU/Isidro Stringer et al. A Practical Approach for the Verifications and Determination of Site- and Trimester-Specific Reference Intervals for Thyroid Function tests in . Thyroid, 2019:29:3:412-420. Riccardo E, et al. 2017 Guidelines of the [place] Thyroid Association for the Diagnosis and Management of Thyroid Disease during and the . Thyroid, 2017:27:3:315-389. Performed By: #### 3 016-3 ####[facility] LABCLIA [id number] [address] [address] [place] CNOVon 07-27-2024 CNOV Normal [facility] CNOVon 07-13-2024 CNOV Normal [facility] INFLUENZA A&B MOLECULAR (POC )on 07-13-2024 Flu A (POCT) Negative Negative [facility] Flu B (POCT) Negative Negative [facility] Procedural Control Valid [facility] Location: [place], [facility], [place], [place], [id number] [place] [address] POINT OF CARE [facility] XR CHEST 2V FRONTAL/LATon XR CHEST 2V FRONTAL/LAT Normal [facility] XR Chest PA and Lateralon IMPRESSION: No acute radiographic abnormality. Revenue Cycle Specialist: SARWAT Transcribe Date/Time: Jul 13 2024 4:42P Dictated by : DELIO CALDWELL MD This examination was interpreted and the report reviewed and electronically signed by: DELIO CALDWELL MD on Jul 13 2024 4:43PM [facility] DIVISION OF RADIOLOGY * * *Final Report* [...] in the spine. DIVISION OF RADIOLOGY Provider, [facility] - 07/13/2024 * * *Final Report* [...] spine. IMPRESSION IMPRESSION: No acute radiographic abnormality. Revenue Cycle Specialist: [facility] Transcribe Date/Time: Jul 13 2024 4:42P Dictated by : DELIO CALDWELL MD This examination was interpreted and the report reviewed and electronically signed by: DELIO CALDWELL MD on Jul 13 2024 4:43PM EST [facility] Radiology Study observation (narrative) [facility] XR Chest PA and LateralOrder ed By: Ccf Provider on 07-13-2024 [facility] CNOVon 06-30-2024 CNOV Normal [facility] CNPNon 06-19-2024 CNPN Normal [facility] CNOVon 06-16-2024 CNOV Normal [facility] NITRIC OXIDE, EXHALEDon - Viktoriya Woodward [...] DATE: June 16, 2024 TIME: 1:12 PM [facility] NITRIC OXIDE, EXHALEDOrdered By: Viktoriya Woodward on 06-16-2024 [facility] SPIROMETRY WITH DILATOR IF O BSTRUCTEDon 06-16-2024 FEF25% PRE (L/S) 2.90 L/S [facility] NAK53-93% LLN (L/S) 1.60 L/S [facility] NWY34-32% PRE (L/S) 1.75 L/S [facility] KMH49-07% PREDICTED (L/S) 2.77 L/S [facility] FEF75% LLN (L/S) 0.43 L/S [facility] FEF75% PRE (L/S0 0.81 L/S [facility] FEF75% PREDICTED (L/S) 0.95 L/S [facility] FEF75% ULN (L/S) 1.92 L/S [facility] FET PRE (S) 6.32 S [facility] FEV1 LLN (L) 1.88 L [facility] FEV1 PRE (L) 1.98 L [facility] FEV1 PREDICTED (L) 2.52 L [facility] FEV1 ULN (L) 3.13 L [facility] FEV1/FVC LLN (%) 71 % [facility] FEV1/FVC PRE (%) 77 % [facility] FEV1/FVC PREDICTED (%) 82 % [facility] FVC LLN (L) 2.29 L [facility] FVC PRE (L) 2.56 L [facility] FVC PREDICTED (L) 3.04 L [place] FVC ULN (L) 3.82 L [facility] PEF LLN (L/S) 4.93 L/S [facility] PEF PRE (L/S) 4.92 L/S [facility] PEF ULN (L/S) 8.14 L/S [facility] [address] [id number] Test Date: 2024-06-16 Pat Name: DARREN REINOSO Department: Room: 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 No contraindications or sensitivities were noted. Meds taken: no inhaled respiratory medications taken before testing. Current ATS/ERS acceptability and repeatability standards for spirometry met. Start of test and EOFE criteria met. PULMONARY FUNCTION LAB [facility] CNOVon 04-28-2024 CNOV Normal [facility] HEMOGLOBIN A1C (POC)on 04-28 HbA1c (Bld) [Mass fraction] 6.0 % Abnormal 4.3 - 5.6 % [facility] Comment on above: Location:[address], [place], [address] Point of care (POC) Hemoglobin A1c (HGBA1C) [...] specific diabetes management situations: The POC device frame stripper provides a normal range of 4.2% to 6.5% for the HGBA1C POC test. However, the [place] [employer] guidelines indicate that patients with [...] Interpretation and review of laboratory results Abnormal [facility] CNPNon 04-05-2024 CNPN Normal [facility] CNOVon 04-02-2024 CNOV Normal [facility] Bacteria Wnd Culton 04-01-20 24 Bacteria identified Cx Nom (Wound) Abnormal [facility] Comment on above: Performed By: #### 6 462-6 ####[facility] LABCLIA [id number] [address] [place] CNOVon 04-01-2024 CNOV Normal [facility] CBC panel Auto (Bld)on 03-31 Erythrocyte distribution width (RBC) [Ratio] 14.8 % Normal 11.5-15.0 [facility] Comment on above: Order Comment: Speci men Type: BLOOD SPECIMENOrdering Facility: [facility], [facility] Address: [facility] [place] [address] Performed By: #### 5 8410-2 ####[facility] LABCLIA [id number] [address] [place] Hematocrit (Bld) [Volume fraction] 44.4 % Normal 36.0-46.0 [facility] Comment on above: Order Comment: Speci men Type: BLOOD SPECIMENOrdering Facility: [facility] Address: [facility] [place] [address] Performed By: #### 5 8410-2 ####[facility] LABCLIA [id number] [address] [place] Hemoglobin (Bld) [Mass/Vol] 13.7 g/dL Normal 11.5-15.5 [facility] Comment on above: Order Comment: Speci men Type: BLOOD SPECIMENOrdering Facility: [facility] Address: [facility] [place] [address] Performed By: #### 5 8410-2 ####[facility] LABIA [id number] [address] MCH (RBC) [Entitic mass] 29.5 pg Normal 26.0-34.0 [facility] Comment on above: Order Comment: Speci men Type: BLOOD SPECIMENOrdering Facility: [facility] Address: [facility] [place] [address] Performed By: #### 5 8410-2 ####[facility] LABCLIA [id number] [address] [place] MCHC (RBC) [Mass/Vol] 30.9 g/dL Normal 30.5-36.0 [facility] Comment on above: Order Comment: Speci men Type: BLOOD SPECIMENOrdering Facility: [facility] Address: [facility] [place] [address] Performed By: #### 5 8410-2 ####[facility] LABIA [id number] [address] [place] MCV (RBC) [Entitic vol] 95.7 fL Normal 80.0-100.0 [facility] Comment on above: Order Comment: Speci men Type: BLOOD SPECIMENOrdering Facility: [facility] Address: [facility] [place] [address] Performed By: #### 5 8410-2 ####[facility] LABCLIA [id number] [address] [place] Nucleated RBC (Bld) [#/Vol] 10*3/uL Normal <0.01 [facility] Comment on above: Order Comment: Speci men Type: BLOOD SPECIMENOrdering Facility: [facility], [facility] Address: [facility] [place] [address] Performed By: #### 5 8410-2 ####[facility] LABCLIA [id number] [place] [address] [place] Platelet mean volume (Bld) [Entitic vol] 9.8 fL Normal 9.0-12.7 [facility] Comment on above: Order Comment: Speci men Type: BLOOD SPECIMENOrdering Facility: [facility] Address: [address] [place] [address] [place] [address] Performed By: #### 5 8410-2 ####[facility] LABIA [id number] [place] [address] [place] Platelets (Bld) [#/Vol] 252 10*3/uL Normal 150-400 [facility] Comment on above: Order Comment: Speci men Type: BLOOD SPECIMENOrdering Facility: [facility] Address: [address] [place] [address] [place] [address] Performed By: #### 5 8410-2 ####[facility] LABIA [id number] [place] [address] [place] RBC (Bld) [#/Vol] 4.64 10*6/uL Normal 3.90-5.20 [facility] Comment on above: Order Comment: Speci men Type: BLOOD SPECIMENOrdering Facility: [facility] Address: [address] [place], [place] [address] [address] Performed By: #### 5 8410-2 ####[facility] LABIA [id number] [place] [address] [place] WBC (Bld) [#/Vol] 11.81 10*3/uL High 3.70-11.00 [facility] Comment on above: Order Comment: Speci men Type: BLOOD SPECIMENOrdering Facility: [facility] Address: [address] [place], [place] [address], [place] [address] Performed By: #### 5 8410-2 ####[facility] LABCLIA [id number] [place] [address] [place] CNOVon 03-31-2024 CNOV Normal [facility] Comprehensive metabolic 2000 panelon 03-31-2024 Albumin [Mass/Vol] 4.1 g/dL Normal 3.9-4.9 [facility] Comment on above: Order Comment: Speci men Type: BLOOD SPECIMENOrdering Facility: [facility] Address: [address] [place] [address] Performed By: #### 2 4323-8 ####[facility] LABCLIA [id number] [place] [address] [place] ALP [Catalytic activity/Vol] 108 U/L Normal 34-123 [facility] Comment on above: Order Comment: Speci men Type: BLOOD SPECIMENOrdering Facility: [facility] Address: [facility] [place] [address] Performed By: #### 2 4323-8 ####[facility] LABCLIA [id number] [place] [address] [place] ALT [Catalytic activity/Vol] 17 U/L Normal 7-38 [facility] Comment on above: Order Comment: Speci men Type: BLOOD SPECIMENOrdering Facility: [facility] Address: [facility] [place] [address] Performed By: #### 2 4323-8 ####[facility] LABCLIA [id number] [place] [id number] [place] Anion gap [Moles/Vol] 14 mmol/L Normal 8-15 [facility] Comment on above: Order Comment: Speci men Type: BLOOD SPECIMENOrdering Facility: [facility] Address: [facility] [place] [address] Performed By: #### 2 4323-8 ####[facility] LABCLIA [id number] [place] [address] [place] AST [Catalytic activity/Vol] 15 U/L Normal 13-35 [facility] Comment on above: Order Comment: Speci men Type: BLOOD SPECIMENOrdering Facility: [facility] Address: [facility] [place] [address] Performed By: #### 2 4323-8 ####[facility] LABCLIA [id number] [place] [address] [place] Bilirubin [Mass/Vol] mg/dL Low 0.2-1.3 [facility] Comment on above: Order Comment: Speci men Type: BLOOD SPECIMENOrdering Facility: [facility] Address: [address] [place] [address] Performed By: #### 2 4323-8 ####[facility] LABCLIA [id number] [place] [address] [place] Calcium [Mass/Vol] 9.4 mg/dL Normal 8.5-10.2 [facility] Comment on above: Order Comment: Speci men Type: BLOOD SPECIMENOrdering Facility: [facility] Address: [facility] [place] [address] Performed By: #### 2 4323-8 ####[facility] LABCLIA [id number] [place] [address] [place] Chloride [Moles/Vol] 103 mmol/L Normal 98-107 [facility] Comment on above: Order Comment: Speci men Type: BLOOD SPECIMENOrdering Facility: [facility] Address: [facility] [place] [address] Performed By: #### 2 4323-8 ####[facility] LABCLIA [id number] [place] [address] [place] CO2 [Moles/Vol] 23 mmol/L Normal 22-30 [facility] Comment on above: Order Comment: Speci men Type: BLOOD SPECIMENOrdering Facility: [facility] Address: [facility] [place] [address] Performed By: #### 2 4323-8 ####[facility] [id number] [address] Creatinine [Mass/Vol] 0.59 mg/dL Normal 0.58-0.96 [facility] Comment on above: Order Comment: Speci men Type: BLOOD SPECIMENOrdering Facility: [facility] Address: [address] [place] [address] Performed By: #### 2 4323-8 ####[facility] [id number] [address] Creatinine and Glomerular filtration rate.predicted panel (S/P/Bld) 113 mL/min/1.73m??? Normal >=60 [facility] Comment on above: Order Comment: Surekhai alida Type: BLOOD SPECIMENOrdering Facility: [facility] Address: [address] [place] [address] Result Comment: Jen mated Glomerular Filtration Rate [...] actual GFR. Performed By: #### 2 4323-8 ####[facility] LABIA [id number] [address] [place] Glucose [Mass/Vol] 84 mg/dL Normal 74-99 [facility] Comment on above: Order Comment: Surekhai alida Type: BLOOD SPECIMENOrdering Facility: [facility] Address: [address] [place] [address] Result Comment: The [place] Diabetes Association (ADA) provides guidance for cutoff [...] Standards of Medical Care in Diabetes 2016, [place] [employer]. Diabetes Care. 2016.39(Suppl 1). Performed By: #### 2 4323-8 ####[facility] LABCLIA [id number] [address] [address] [place] Potassium [Moles/Vol] 3.9 mmol/L Normal 3.7-5.1 [facility] Comment on above: Order Comment: Rashad irwin Type: BLOOD SPECIMENOrdering Facility: [facility] Address: [address] [place], [place] [address] [address] Performed By: #### 2 4323-8 ####[facility] [id number] [place] [address] [place] Protein [Mass/Vol] 7.3 g/dL Normal 6.3-8.0 [facility] Comment on above: Order Comment: Rashad irwin Type: BLOOD SPECIMENOrdering Facility: [facility] Address: [address] [place] [address] Performed By: #### 2 4323-8 ####[facility] LABIA [id number] [place] [id number] [place] Sodium [Moles/Vol] 140 mmol/L Normal 136-144 [facility] Comment on above: Order Comment: Rashad irwin Type: BLOOD SPECIMENOrdering Facility: [facility] Address: [address] [place] [address] [place] [address] Performed By: #### 2 4323-8 ####[facility] LABIA [id number] [place] [id number] [place] Urea nitrogen [Mass/Vol] 9 mg/dL Normal 7-21 [facility] Comment on above: Order Comment: Speci men Type: BLOOD SPECIMENOrdering Facility: [facility] Address: [facility] [place] [address] Performed By: #### 2 4323-8 ####[facility] LABCLIA [id number] [place] [address] [place] CNOVon 03-17-2024 CNOV Normal [facility] Fungus Spec Culton 4 Fungus identified Cx Nom (Unsp spec) CULTURE, FUNGAL: No Fungus isolated after 28 days Normal [facility] Comment on above: Performed By: #### 5 80-1 ####[facility] LABIA [id number] [place] [address] [place] (1,3)-P-C-MSIZBYmx 4 (1,3) B-D GLUCAN <31 Normal <60 [facility] Comment on above: Order Comment: Speci men Type: BLOOD SPECIMENOrdering Facility: [facility] Address: [facility] [place] [address] Performed By: #### B DGLUC ####[facility] LABIA [id number] [place] [address] [place] (1,3) B-D GLUCAN QUAL Negative Normal Negative [facility] Comment on above: Order Comment: Speci men Type: BLOOD SPECIMENOrdering Facility: [facility] Address: [facility] [place] [address] Performed By: #### B DGLUC ####[facility] LABIA [id number] [place] [address] [place] ASPERGILLUS GALACTOMANNAN SE RUMon 03-03-2024 ASPERGILLUS GALACTOMANNAN 0.08 Index Value Normal <=0.49 [facility] Comment on above: Order Comment: Speci men Type: BLOOD SPECIMENOrdering Facility: [facility] Address: [facility] [place] [address] Performed By: #### A SGALS ####[facility] LABCLIA [id number] [address] [place] Galactomannan Ag IA Ql Negative Normal Negative [facility] Comment on above: Order Comment: Speci alida Type: BLOOD SPECIMENOrdering Facility: [facility] Address: [facility] [place] [address] Result Comment: Aspe rgillus Galactomannan antigen assay [...] is required. Performed By: #### A SGALS ####[facility] LABCLIA [id number] [address] [place] CBC panel Auto (Bld)on 03-03 Erythrocyte distribution width (RBC) [Ratio] 14.5 % Normal 11.5-15.0 [facility] Comment on above: Order Comment: Rashad irwin Type: BLOOD SPECIMENOrdering Facility: [facility] Address: [facility] [place] [address] Performed By: #### 5 8410-2 ####[facility] LABCLIA [id number] [address] [place] Hematocrit (Bld) [Volume fraction] 47.4 % High 36.0-46.0 [facility] Comment on above: Order Comment: Speci alida Type: BLOOD SPECIMENOrdering Facility: [facility] Address: [facility] [place] [address] Performed By: #### 5 8410-2 ####[facility] LABCLIA [id number] [address] [place] Hemoglobin (Bld) [Mass/Vol] 14.5 g/dL Normal 11.5-15.5 [facility] Comment on above: Order Comment: Speci men Type: BLOOD SPECIMENOrdering Facility: [facility] Address: [facility] [place] [address] Performed By: #### 5 8410-2 ####[facility] LABIA [id number] [address] MCH (RBC) [Entitic mass] 29.3 pg Normal 26.0-34.0 [facility] Comment on above: Order Comment: Speci men Type: BLOOD SPECIMENOrdering Facility: [facility] Address: [facility] [place] [address] Performed By: #### 5 8410-2 ####[facility] LABIA [id number] [address] [place] MCHC (RBC) [Mass/Vol] 30.6 g/dL Normal 30.5-36.0 [facility] Comment on above: Order Comment: Speci men Type: BLOOD SPECIMENOrdering Facility: [facility] Address: [facility] [place] [address] Performed By: #### 5 8410-2 ####[facility] LABIA [id number] [address] [place] MCV (RBC) [Entitic vol] 95.8 fL Normal 80.0-100.0 [facility] Comment on above: Order Comment: Speci men Type: BLOOD SPECIMENOrdering Facility: [facility] Address: [facility] [place] [address] Performed By: #### 5 8410-2 ####[facility] LABIA [id number] [address] [place] Nucleated RBC (Bld) [#/Vol] 10*3/uL Normal <0.01 [facility] Comment on above: Order Comment: Speci men Type: BLOOD SPECIMENOrdering Facility: [facility] Address: [facility] [place] [address] Performed By: #### 5 8410-2 ####[facility] LABIA [id number] [place] [id number] [place] Platelet mean volume (Bld) [Entitic vol] 9.9 fL Normal 9.0-12.7 [facility] Comment on above: Order Comment: Speci men Type: BLOOD SPECIMENOrdering Facility: [facility] Address: [facility] [place] [address] Performed By: #### 5 8410-2 ####[facility] LABIA [id number] [place] [address] [place] Platelets (Bld) [#/Vol] 265 10*3/uL Normal 150-400 [facility] Comment on above: Order Comment: Speci men Type: BLOOD SPECIMENOrdering Facility: [facility] Address: [facility] [place] [address] Performed By: #### 5 8410-2 ####[facility] [id number] [place] [address] [place] RBC (Bld) [#/Vol] 4.95 10*6/uL Normal 3.90-5.20 [facility] Comment on above: Order Comment: Speci men Type: BLOOD SPECIMENOrdering Facility: [facility] Address: [facility] [place] [address] Performed By: #### 5 8410-2 ####[facility] LABIA [id number] [place] [id number] [place] WBC (Bld) [#/Vol] 9.05 10*3/uL Normal 3.70-11.00 [facility] Comment on above: Order Comment: Speci men Type: BLOOD SPECIMENOrdering Facility: [facility] Address: [facility] [place] [address] Performed By: #### 5 8410-2 ####[facility] LABCLIA [id number] [address] [address] [place] Comprehensive metabolic 2000 panelon 03-03-2024 Albumin [Mass/Vol] 3.9 g/dL Normal 3.9-4.9 [facility] Comment on above: Order Comment: Speci men Type: BLOOD SPECIMENOrdering Facility: [facility] Address: [facility] [place] [address] Performed By: #### 2 4323-8 ####[facility] LABCLIA [id number] [place] [address] [place] ALP [Catalytic activity/Vol] 106 U/L Normal 34-123 [facility] Comment on above: Order Comment: Speci men Type: BLOOD SPECIMENOrdering Facility: [facility] Address: [facility] [place] [address] Performed By: #### 2 4323-8 ####[facility] LABCLIA [id number] [place] [address] [place] ALT [Catalytic activity/Vol] 20 U/L Normal 7-38 [facility] Comment on above: Order Comment: Speci men Type: BLOOD SPECIMENOrdering Facility: [facility] Address: [facility] [place] [address] Performed By: #### 2 4323-8 ####[facility] LABIA [id number] [place] [id number] [place] Anion gap [Moles/Vol] 11 mmol/L Normal 8-15 [facility] Comment on above: Order Comment: Speci men Type: BLOOD SPECIMENOrdering Facility: [facility] Address: [facility] [place] [address] Performed By: #### 2 4323-8 ####[facility] LABCLIA [id number] [place] [id number] [place] AST [Catalytic activity/Vol] 13 U/L Normal 13-35 [facility] Comment on above: Order Comment: Speci men Type: BLOOD SPECIMENOrdering Facility: [facility] Address: [facility] [place] [address] Performed By: #### 2 4323-8 ####[facility] LABCLIA [id number] [place] [address] [place] Bilirubin [Mass/Vol] 0.2 mg/dL Normal 0.2-1.3 [facility] Comment on above: Order Comment: Speci men Type: BLOOD SPECIMENOrdering Facility: [facility] Address: [facility] [place] [address] Performed By: #### 2 4323-8 ####[facility] LABCLIA [id number] [place] [address] [place] Calcium [Mass/Vol] 9.7 mg/dL Normal 8.5-10.2 [facility] Comment on above: Order Comment: Speci men Type: BLOOD SPECIMENOrdering Facility: [facility] Address: [facility] [place] [address] Performed By: #### 2 4323-8 ####[facility] LABCLIA [id number] [place] [address] [place] Chloride [Moles/Vol] 105 mmol/L Normal 98-107 [facility] Comment on above: Order Comment: Speci men Type: BLOOD SPECIMENOrdering Facility: [facility] Address: [facility] [place] [address] Performed By: #### 2 4323-8 ####[facility] [facility] LABCLIA [id number] [place] [address] [place] CO2 [Moles/Vol] 26 mmol/L Normal 22-30 [facility] Comment on above: Order Comment: Speci men Type: BLOOD SPECIMENOrdering Facility: [facility] Address: [facility] [place] [address] Performed By: #### 2 4323-8 ####[facility] LABIA [id number] [place] [id number] [place] Creatinine [Mass/Vol] 0.79 mg/dL Normal 0.58-0.96 [facility] Comment on above: Order Comment: Rashad irwin Type: BLOOD SPECIMENOrdering Facility: [facility] Address: [facility] [place] [address] Performed By: #### 2 4323-8 ####[facility] LABIA [id number] [address] Creatinine and Glomerular filtration rate.predicted panel (S/P/Bld) 94 mL/min/1.73m??? Normal >=60 [facility] Comment on above: Order Comment: Rashad irwin Type: BLOOD SPECIMENOrdering Facility: [facility] Address: [facility] [place] [address] Result Comment: Jen mated Glomerular Filtration Rate [...] actual GFR. Performed By: #### 2 4323-8 ####[facility] LABIA [id number] [place] [id number] [place] Glucose [Mass/Vol] 133 mg/dL High 74-99 [facility] Comment on above: Order Comment: Rashad irwin Type: BLOOD SPECIMENOrdering Facility: [facility] Address: [place] [address] Result Comment: The [place] Diabetes Association (ADA) provides guidance for cutoff [...] Standards of Medical Care in Diabetes 2016, [place] Diabetes Association. Diabetes Care. 2016.39(Suppl 1). Performed By: #### 2 4323-8 ####[facility] LABCLIA [id number] [place] [address] [place] Potassium [Moles/Vol] 4.3 mmol/L Normal 3.7-5.1 [facility] Comment on above: Order Comment: Rashad irwin Type: BLOOD SPECIMENOrdering Facility: [facility] Address: [facility] [place] [address] Performed By: #### 2 4323-8 ####[facility] LABCLIA [id number] [place] [address] [place] Protein [Mass/Vol] 7.2 g/dL Normal 6.3-8.0 [facility] Comment on above: Order Comment: Rashad irwin Type: BLOOD SPECIMENOrdering Facility: [facility] Address: [facility] [place] [address] Performed By: #### 2 4323-8 ####[facility] LABCLIA [id number] [place] [address] [place] Sodium [Moles/Vol] 142 mmol/L Normal 136-144 [facility] Comment on above: Order Comment: Surekhai alida Type: BLOOD SPECIMENOrdering Facility: [facility] Address: [facility] [place] [address] Performed By: #### 2 4323-8 ####[facility] LABCLIA [id number] [place] [id number] [place] Urea nitrogen [Mass/Vol] 12 mg/dL Normal 7-21 [facility] Comment on above: Order Comment: Surekhai men Type: BLOOD SPECIMENOrdering Facility: [facility] Address: [address] [place] [address] Performed By: #### 2 4323-8 ####[facility] LABCLIA [id number] [address] [place]O CAPSULATUM AGon 2023 HISTOPLASMA ANTIGEN, SERUM Not detected Normal Not Detected [facility] Comment on above: Order Comment: Speci men Type: BLOOD SPECIMENOrdering Facility: [facility] Address: [address] [place] [address] Result Comment: Perf ormed By: [employer] [place], [place] [address]Ugcbtbutmt Director: Brad Hernandez MD, PhDCLIA Number: [id number] Performed By: #### S HISTO ####[facility] LABORATORIESCLIA [id number] [place] [address] HISTOPLASMA ANTIGEN, SERUM INTERP Not detected Normal Not Detected [facility] Comment on above: Order Comment: Speci men Type: BLOOD SPECIMENOrdering Facility: [facility] Address: [address] [place] [address] Result Comment: INTE RPRETIVE INFORMATION: Histoplasma Antigen [...] was developed and its performance characteristicsdetermined by [employer]. It has not been cleared orapproved by the [place] Food and Drug Administration. This test wasperformed in a CLIA certified laboratory and is intended forclinical purposes. Performed By: #### S HISTO ####[facility]IESCLIA [id number] [place] [address] Voriconazole [facility] Voriconazole [Mass/Vol] 0.8 ug/mL Low 1.0-5.9 [facility] Comment on above: Order Comment: Speci men Type: BLOOD SPECIMENOrdering Facility: [facility] Address: [address] [place] [address] [place] [address] Result Comment: Rang es are based on trough draw at steady-state concentration.Therapeutic: >0.9 ug/mLProphylactic: >0.9 ug/mLToxic: >5.9 ug/mLThe therapeutic, prophylactic, and toxic ranges were based on the 2016 Infectious Disease Society of [place]'s (IDSA) Clinical Practice Guidelines for the Management of Aspergillosis and Candidiasis and consultation from [facility]'s Department of Infectious Disease.Reference ranges and high/low indicator flags are provided as general guidelines only. The treating physician must determine appropriate target levels/dosing based on the specific clinical situation.This test was developed, and its performance characteristics determined by the [facility] Department of Pathology and Laboratory Medicine. It has not been cleared or approved by the FDA. The [facility] Department of Pathology and Laboratory Medicine is regulated under CLIA as qualified to perform high-complexity testing. This test is used for clinical purposes. It should not be regarded as investigational or for research. Performed By: #### 3 8370-3 ####[facility] LABCLIA [id number] [place] [id number] [place] CNPNon 02-29-2024 CNPN Normal [facility] CT CHEST W IVCONon 4 CT CHEST W IVCON Normal Miguel Angelvelan suresh [facility] Fungus Stain 8136on 02-29-20 24 FUNST ___ TESTING PERFORMED AT [facility]. ORIGINAL REPORT ON FILE IN LAB CONTAINS ADDITIONAL TEST SITE INFORMATION. ___ Fungus Stain No yeast or mold observed. Normal [facility] Comment on above: Performed By: #### M 100.1999, M100.2400, M600.0 #### [facility] [address] [place], [address] CNPNon 02-28-2024 CNPN Normal [facility] Respiratory Cultureon 2023 RESPC Mixed normal respira tory wing. No Haemophilus, Streptococcus pneumoniae, beta-hemolytic Streptococcus or Staphylococcus aureus isolated. Normal [facility] Comment on above: Performed By: #### M 100.1999, M100.2400, M600.0 #### [facility] [address] [place], [address] A fumigatus IgE Qnon 024 A. fumigatus IgE Qn (S) <0.35 Normal <0.35 [facility] Comment on above: Order Comment: Speci men Type: BLOOD SPECIMENOrdering Facility: [facility] Address: [address] [place] [address] Performed By: #### 6 025-1, 02542-6 ####[facility] LABCLIA [id number] [place] [address] [place] A. FUMIGATUS AB, IGGon 02-24 A FUMIGATUS, IGG BY MARA 9.80 mcg/mL Normal <=99.99 [facility] Comment on above: Order Comment: Speci men Type: BLOOD SPECIMENOrdering Facility: [facility] Address: [address] [place] [address] Result Comment: REFE RENCE INTERVAL: Aspergillus fumigatus [...] was developed and its performance characteristicsdetermined by [employer]. It has not been cleared orapproved by the [place] Food and Drug Administration. This test wasperformed in a CLIA certified laboratory and is intended forclinical purposes. Performed By: #### Gabriela RÍOS ####[facility] LABORATORIESIA [id number] [place] [address] A. fumigatus IgE Qn (S)on A. fumigatus IgE RAST class (S) Class 0 Normal Class 0 [facility] Comment on above: Order Comment: Speci men Type: BLOOD SPECIMENOrdering Facility: [facility] Address: [address] [place] [address] Performed By: #### 6 025-1, 29009-6 ####[facility] LABIA [id number] [place] [address] [place] CBC W Auto Differential pane l (Bld)on 02-25-2024 Basophils (Bld) [#/Vol] 0.05 10*3/uL Normal <0.11 [facility] Comment on above: Order Comment: Speci men Type: BLOOD SPECIMENOrdering Facility: [facility] Address: [address] [place] [address] Performed By: #### 5 7021-8 ####[facility] LABIA [id number] [place] [address] [place] Basophils/100 WBC (Bld) 0.4 % Normal [facility] Comment on above: Order Comment: Speci men Type: BLOOD SPECIMENOrdering Facility: [facility] Address: [address] [place] [address] Performed By: #### 5 7021-8 ####[facility] LABCLIA [id number] [place] [address] [place] Differential cell count method Nom (Bld) Auto Normal [facility] Comment on above: Order Comment: Speci men Type: BLOOD SPECIMENOrdering Facility: [facility] Address: [address] [place] [address] Performed By: #### 5 7021-8 ####[facility] LABCLIA [id number] [place] [address] [place] Eosinophils (Bld) [#/Vol] 0.08 10*3/uL Normal <0.46 [facility] Comment on above: Order Comment: Speci men Type: BLOOD SPECIMENOrdering Facility: [facility] Address: [address] [place] [address] Performed By: #### 5 7021-8 ####[facility] LABCLIA [id number] [place] [address] [place] Eosinophils/100 WBC (Bld) 0.6 % Normal [facility] Comment on above: Order Comment: Speci men Type: BLOOD SPECIMENOrdering Facility: [facility] Address: [address] [place] [address] Performed By: #### 5 7021-8 ####[facility] LABCLIA [id number] [place] [address] [place] Erythrocyte distribution width (RBC) [Ratio] 14.6 % Normal 11.5-15.0 [facility] Comment on above: Order Comment: Speci men Type: BLOOD SPECIMENOrdering Facility: [facility] Address: [address] [place] [address] Performed By: #### 5 7021-8 ####[facility] LABCLIA [id number] [place] [address] [place] Hematocrit (Bld) [Volume fraction] 47.1 % High 36.0-46.0 [facility] Comment on above: Order Comment: Speci men Type: BLOOD SPECIMENOrdering Facility: [facility] Address: [address] [place] [address] Performed By: #### 5 7021-8 ####[facility] LABCLIA [id number] [place] [address] [place] Hemoglobin (Bld) [Mass/Vol] 14.3 g/dL Normal 11.5-15.5 [facility] Comment on above: Order Comment: Speci men Type: BLOOD SPECIMENOrdering Facility: [facility] Address: [address] [place] [address] Performed By: #### 5 7021-8 ####[facility] LABCLIA [id number] [place] [address] [place] Immature granulocytes (Bld) [#/Vol] 0.09 10*3/uL Normal <0.10 [facility] Comment on above: Order Comment: Speci men Type: BLOOD SPECIMENOrdering Facility: [facility] Address: [address] [place] [address] Performed By: #### 5 7021-8 ####[facility] LABCLIA [id number] [place] [address] [place] Immature granulocytes/100 WBC (Bld) 0.7 % Normal [facility] Comment on above: Order Comment: Speci men Type: BLOOD SPECIMENOrdering Facility: [facility] Address: [address] [place] [address] Performed By: #### 5 7021-8 ####[facility] LABCLIA [id number] [place] [address] [place] Lymphocytes (Bld) [#/Vol] 3.27 10*3/uL Normal 1.00-4.00 [facility] Comment on above: Order Comment: Speci men Type: BLOOD SPECIMENOrdering Facility: [facility] Address: [address] [place] [address] Performed By: #### 5 7021-8 ####[facility] LABIA [id number] [place] [address] [place] Lymphocytes/100 WBC (Bld) 24.5 % Normal [facility] Comment on above: Order Comment: Speci men Type: BLOOD SPECIMENOrdering Facility: [facility] Address: [address] [place] [address] Performed By: #### 5 7021-8 ####[facility] LABIA [id number] [place] [address] [place] MCH (RBC) [Entitic mass] 29.0 pg Normal 26.0-34.0 [facility] Comment on above: Order Comment: Speci men Type: BLOOD SPECIMENOrdering Facility: [facility] Address: [address] [place] [address] Performed By: #### 5 7021-8 ####[facility] LABIA [id number] [place] [address] [place] MCHC (RBC) [Mass/Vol] 30.4 g/dL Low 30.5-36.0 [facility] Comment on above: Order Comment: Speci men Type: BLOOD SPECIMENOrdering Facility: [facility] Address: [address] [place] [address] Performed By: #### 5 7021-8 ####[facility] LABIA [id number] [place] [address] [place] MCV (RBC) [Entitic vol] 95.5 fL Normal 80.0-100.0 [facility] Comment on above: Order Comment: Speci men Type: BLOOD SPECIMENOrdering Facility: [facility] Address: [address] [place] [address] Performed By: #### 5 7021-8 ####[facility] LABIA [id number] [place] [address] [place] Monocytes (Bld) [#/Vol] 0.80 10*3/uL Normal <0.87 [facility] Comment on above: Order Comment: Speci men Type: BLOOD SPECIMENOrdering Facility: [facility] Address: [address] [place] [address] Performed By: #### 5 7021-8 ####[facility] LABCLIA [id number] [place] [address] [place] Monocytes/100 WBC (Bld) 6.0 % Normal [facility] Comment on above: Order Comment: Speci men Type: BLOOD SPECIMENOrdering Facility: [facility] Address: [address] [place] [address] Performed By: #### 5 7021-8 ####[facility] LABCLIA [id number] [place] [address] [place] Neutrophils (Bld) [#/Vol] 9.08 10*3/uL High 1.45-7.50 [facility] Comment on above: Order Comment: Speci men Type: BLOOD SPECIMENOrdering Facility: [facility] Address: [address] [place] [address] Performed By: #### 5 7021-8 ####[facility] LABCLIA [id number] [place] [address] [place] Neutrophils/100 WBC (Bld) 67.8 % Normal [facility] Comment on above: Order Comment: Speci men Type: BLOOD SPECIMENOrdering Facility: [facility] Address: [address] [place] [address] Performed By: #### 5 7021-8 ####[facility] LABCLIA [id number] [place] [address] [place] Nucleated RBC (Bld) [#/Vol] 10*3/uL Normal <0.01 [facility] Comment on above: Order Comment: Speci men Type: BLOOD SPECIMENOrdering Facility: [facility] Address: [address] [place] [address] Performed By: #### 5 7021-8 ####[facility] LABCLIA [id number] [place] [address] [place] Nucleated RBC/100 WBC (Bld) [Ratio] 0.0 /100 WBC Normal [facility] Comment on above: Order Comment: Speci men Type: BLOOD SPECIMENOrdering Facility: [facility] Address: [address] [place] [address] Performed By: #### 5 7021-8 ####[facility] LABIA [id number] [place] [address] [place] Platelet mean volume (Bld) [Entitic vol] 10.0 fL Normal 9.0-12.7 [facility] Comment on above: Order Comment: Speci men Type: BLOOD SPECIMENOrdering Facility: [facility] Address: [address] [place] [address] Performed By: #### 5 7021-8 ####[facility] LABIA [id number] [place] [address] [place] Platelets (Bld) [#/Vol] 251 10*3/uL Normal 150-400 [facility] Comment on above: Order Comment: Speci men Type: BLOOD SPECIMENOrdering Facility: [facility] Address: [address] [place] [address] Performed By: #### 5 7021-8 ####[facility] LABIA [id number] [place] [address] [place] RBC (Bld) [#/Vol] 4.93 10*6/uL Normal 3.90-5.20 [facility] Comment on above: Order Comment: Speci men Type: BLOOD SPECIMENOrdering Facility: [facility] Address: [address] [place] [address] Performed By: #### 5 7021-8 ####[facility] LABIA [id number] [place] [id number] [place] WBC (Bld) [#/Vol] 13.37 10*3/uL High 3.70-11.00 [facility] Comment on above: Order Comment: Speci men Type: BLOOD SPECIMENOrdering Facility: [facility] Address: [address] [place] [address] Performed By: #### 5 7021-8 ####[facility] LABCLIA [id number] [place] [address] [place] CNPNon 02-25-2024 CNPN Normal [facility] Gram Stainon 02-25-2024 GS Acceptable Specimen? Yes (<25 Epithelial cells per/lpf) Gram Stain 4+ White Blood Cells 3+ Gram positive rods 1+ Epithelial cells 1+ Gram positive cocci Normal [facility] Comment on above: Performed By: #### M 100.2000, M100.2400, M600.2200 #### [facility] [address] [place], [place], [address] IgE SerPl-aCncon 02-25-2024 IgE Qn 48.4 kU/l Normal <114.0 [facility] Comment on above: Order Comment: Speci men Type: BLOOD SPECIMENOrdering Facility: [facility] Address: [address] [place] [address] Performed By: #### 6 025-1, 14559-5 ####[facility] LABCLIA [id number] [place] [address] [place] Liver Profileon 02-25-2024 Albumin [Mass/Vol] 3.2 g/dL Normal 3.2-5.0 [facility] Comment on above: Performed By: #### L 213.9310 #### [facility] [address] [place], [place], [address] ALK P 101 U/L Normal 45-117 [facility] Comment on above: Performed By: #### L 500.3400 #### [facility] [address] [place], [address] ALT [Catalytic activity/Vol] 26 U/L Normal 13-56 [facility] Comment on above: Performed By: #### L 500.3400 #### [facility] [address] [place], [address] AST [Catalytic activity/Vol] 26 U/L Normal 15-37 [facility] Comment on above: Result Comment: Mode rate Hemolysis, Result may be falsely increased. Performed By: #### L 500.3400 #### [facility] [address] [place], [address] Bilirubin [Mass/Vol] 0.40 mg/dL Normal 0.20-1.00 [facility] Comment on above: Result Comment: For patients on eltrombopag therapy, use of Dimension [place] TBIL is not recommended. Performed By: #### L 500.3400 #### [facility] [address] [place], [address] D BILI < 0.05 Normal 0.00-0.30 [facility] Comment on above: Performed By: #### L 500.3400 #### [facility] [address] [place], [address] Globulin (S) [Mass/Vol] 4.4 g/dL High 2.2-4.2 [facility] Comment on above: Performed By: #### L 500.3400 #### [facility] [address] [place], [address] T PROT 7.6 g/dL Normal 6.4-8.2 [facility] Comment on above: Performed By: #### L 500.3400 #### [facility] [address] [place], [address] Pulmonary Visit Reporton Pulmonary Visit Report [facility] [address] [place] [address] OFFICE VISIT Date of Service: 02/25/24 MR#: [id number] Acct: [id number] Name: DARREN RENIOSO Rep #: [id number] : 1980 Provider: RAMON Regalado Age/Sex: 44/F [place] [facility] Status: Signed Assessment and Plan Assessment and Plan (1) Aspergillosis: Status: Acute Plan: The patient shows me her MyChart from [facility]. Detailed sputum results are not available, however [...] PRN So (more content not included)... Normal [facility] CNOVon 02-21-2024 CNOV Normal [facility] Bacteria Spec Resp Culton Bacteria identified Respiratory culture Nom (Unsp spec) ORGANISM ID: 1 Many normal respiratory wing ORGANISM ID: 2 Rare Aspergillus fumigatus By MALDI TOF Mass Spectrometry. GRAM STAIN: Rare Mixed oral wing No Polymorphonuclear Leukocytes Abnormal [facility] Comment on above: Performed By: #### 3 2355-0 ####[facility] LABCLIA [id number] [address] [place] CNOVon 02-17-2024 CNOV Normal [facility] XR CHEST 2V FRONTAL/LATon XR CHEST 2V FRONTAL/LAT Normal [facility] XR Chest PA and Lateralon IMPRESSION: No definite acute radiographic abnormality. Revenue Cycle Specialist: SARWAT Transcribe Date/Time: Feb 04 2024 4:59P Dictated by : DELIO CALDWELL MD This examination was interpreted and the report reviewed and electronically signed by: DELIO CALDWELL MD on Feb 04 2024 4:59PM [facility] DIVISION OF RADIOLOGY * * *Final Report* [...] IMPRESSION IMPRESSION: No definite acute radiographic abnormality. Revenue Cycle Specialist: PSCB Transcribe Date/Time: Feb 04 2024 4:59P Dictated by : DELIO CALDWELL MD This examination was interpreted and the report reviewed and electronically signed by: DELIO CALDWELL MD on Feb 04 2024 4:59PM EST [facility] Radiology Study observation (narrative) [facility] XR Chest PA and LateralOrder ed By: Ccf Provider on 02-04-2024 [facility] CNOVon 02-02-2024 CNOV Normal [facility] COVID AND INFLUENZA A/B AND RSV PCR, ROUTINEon 02-02-2024 SARS-CoV-2 (COVID-19) RNA PREETI+probe Ql (Unsp spec) SARS-COV-2 (AGENT OF COVID-19) RNA: Not detected INFLUENZA A RNA: Not detected INFLUENZA B RNA: Not detected RESPIRATORY SYNCYTIAL VIRUS (RSV) RNA: Not detected Normal [facility] Comment on above: Performed By: #### C VFLRS ####[facility] LABCLIA [id number] [address] [id number], [place] [address] [place] Basic metabolic 2000 panelon 01-21-2024 Anion gap [Moles/Vol] 13 mmol/L Normal 8-15 [facility] Comment on above: Order Comment: Speci men Type: BLOOD SPECIMENOrdering Facility: [facility] Address: [address] [place] [address] Performed By: #### 2 4321-2 ####[facility] LABCLIA [id number] [place] [address] [place] Calcium [Mass/Vol] 9.5 mg/dL Normal 8.5-10.2 [facility] Comment on above: Order Comment: Speci men Type: BLOOD SPECIMENOrdering Facility: [facility] Address: [address] [place] [address] Performed By: #### 2 4321-2 ####[facility] LABCLIA [id number] [place] [address] [place] Chloride [Moles/Vol] 104 mmol/L Normal 98-107 [facility] Comment on above: Order Comment: Speci men Type: BLOOD SPECIMENOrdering Facility: [facility] Address: [address] [place] [address] Performed By: #### 2 4321-2 ####[facility] LABCLIA [id number] [place] [address] [place] CO2 [Moles/Vol] 21 mmol/L Low 22-30 [facility] Comment on above: Order Comment: Speci men Type: BLOOD SPECIMENOrdering Facility: [facility] Address: [address] [place] [address] Performed By: #### 2 4321-2 ####[facility] LABCLIA [id number] [place] [address] [place] Creatinine [Mass/Vol] 0.71 mg/dL Normal 0.58-0.96 [facility] Comment on above: Order Comment: Speci men Type: BLOOD SPECIMENOrdering Facility: [facility] Address: [address] [place] [address] Performed By: #### 2 4321-2 ####[facility] LABCLIA [id number] [place] [address] [place] Creatinine and Glomerular filtration rate.predicted panel (S/P/Bld) 106 mL/min/1.73m??? Normal >=60 [facility] Comment on above: Order Comment: Rashad irwin Type: BLOOD SPECIMENOrdering Facility: [facility] Address: [address] [place] [address] Result Comment: Jen mated Glomerular Filtration Rate [...] actual GFR. Performed By: #### 2 4321-2 ####[facility] LABCLIA [id number] [place] [address] [place] Glucose [Mass/Vol] 110 mg/dL High 74-99 [facility] Comment on above: Order Comment: Rashad irwin Type: BLOOD SPECIMENOrdering Facility: [facility] Address: [address] [place] [address] Result Comment: The [place] Diabetes Association (ADA) provides guidance for cutoff [...] Standards of Medical Care in Diabetes 2016, [place] [employer]. Diabetes Care. 2016.39(Suppl 1). Performed By: #### 2 4321-2 ####[facility] LABCLIA [id number] [place] [address] [place] Potassium [Moles/Vol] 4.3 mmol/L Normal 3.7-5.1 [facility] Comment on above: Order Comment: Speci men Type: BLOOD SPECIMENOrdering Facility: [facility] Address: [address] [place] [address] Performed By: #### 2 4321-2 ####[facility] LABCLIA [id number] [place] [address] [place] Sodium [Moles/Vol] 138 mmol/L Normal 136-144 [facility] Comment on above: Order Comment: Speci men Type: BLOOD SPECIMENOrdering Facility: [facility] Address: [address] [place] [address] Performed By: #### 2 4321-2 ####[facility] LABCLIA [id number] [place] [address] [place] Urea nitrogen [Mass/Vol] 12 mg/dL Normal 7-21 [facility] Comment on above: Order Comment: Speci men Type: BLOOD SPECIMENOrdering Facility: [facility] Address: [address] [place] [address] Performed By: #### 2 4321-2 ####[facility] LABCLIA [id number] [place] [address] [place] CBC W Auto Differential pane l (Bld)on 01-21-2024 Basophils (Bld) [#/Vol] 0.05 10*3/uL [facility] Basophils/100 WBC (Bld) 0.5 % [facility] Differential cell count method Nom (Bld) Auto [facility] Eosinophils (Bld) [#/Vol] 0.07 10*3/uL [facility] Eosinophils/100 WBC (Bld) 0.7 % [facility] Erythrocyte distribution width (RBC) [Ratio] 14.3 % 11.5 - 15.0 % [facility] Hematocrit (Bld) [Volume fraction] 44.6 % 36.0 - 46.0 % [facility] Hemoglobin (Bld) [Mass/Vol] 13.6 g/dL 11.5 - 15.5 g/dL [facility] Immature granulocytes (Bld) [#/Vol] 0.05 10*3/uL [facility] Immature granulocytes/100 WBC (Bld) 0.5 % [facility] Lymphocytes (Bld) [#/Vol] 2.43 10*3/uL [facility] Lymphocytes/100 WBC (Bld) 25.2 % [facility] MCH (RBC) [Entitic mass] 28.9 pg 26.0 - 34.0 pg [facility] MCHC (RBC) [Mass/Vol] 30.5 g/dL 30.5 - 36.0 g/dL [facility] MCV (RBC) [Entitic vol] 94.7 fL 80.0 - 100.0 fL [facility] Monocytes (Bld) [#/Vol] 0.66 10*3/uL [facility] Monocytes/100 WBC (Bld) 6.8 % [facility] Neutrophils (Bld) [#/Vol] 6.40 10*3/uL [facility] Neutrophils/100 WBC (Bld) 66.3 % [facility] Nucleated RBC (Bld) [#/Vol] [facility] Nucleated RBC/100 WBC (Bld) [Ratio] 0.0 % /100 WBC [facility] Platelet mean volume (Bld) [Entitic vol] 9.6 fL 9.0 - 12.7 fL [facility] Platelets (Bld) [#/Vol] 248 10*3/uL [facility] RBC (Bld) [#/Vol] 4.71 10*6/uL 3.90 - 5.2 0 m/uL [facility] WBC (Bld) [#/Vol] 9.66 10*3/uL [facility] Basophils (Bld) [#/Vol] 0.05 10*3/uL Normal <0.11 [facility] Comment on above: Order Comment: Speci men Type: BLOOD SPECIMENOrdering Facility: [facility] Address: [address] [place], [place] [address] Performed By: #### 5 7021-8 ####[facility] LABCLIA [id number] [place] [address] [place] Basophils/100 WBC (Bld) 0.5 % Normal [facility] Comment on above: Order Comment: Speci men Type: BLOOD SPECIMENOrdering Facility: [facility] Address: [address] [place] [address] Performed By: #### 5 7021-8 ####[facility] LABCLIA [id number] [place] [address] [place] Differential cell count method Nom (Bld) Auto Normal [facility] Comment on above: Order Comment: Speci men Type: BLOOD SPECIMENOrdering Facility: [facility] Address: [address] [place] [address] Performed By: #### 5 7021-8 ####[facility] LABCLIA [id number] [place] [address] [place] Eosinophils (Bld) [#/Vol] 0.07 10*3/uL Normal <0.46 [facility] Comment on above: Order Comment: Speci men Type: BLOOD SPECIMENOrdering Facility: [facility] Address: [address] [place] [address] Performed By: #### 5 7021-8 ####[facility] LABCLIA [id number] [place] [address] [place] Eosinophils/100 WBC (Bld) 0.7 % Normal [facility] Comment on above: Order Comment: Speci men Type: BLOOD SPECIMENOrdering Facility: [facility] Address: [address] [place] [address] Performed By: #### 5 7021-8 ####[facility] LABCLIA [id number] [place] [address] [place] Erythrocyte distribution width (RBC) [Ratio] 14.3 % Normal 11.5-15.0 [facility] Comment on above: Order Comment: Speci men Type: BLOOD SPECIMENOrdering Facility: [facility] Address: [address] [place] [address] Performed By: #### 5 7021-8 ####[facility] LABCLIA [id number] [place] [address] [place] Hematocrit (Bld) [Volume fraction] 44.6 % Normal 36.0-46.0 [facility] Comment on above: Order Comment: Speci men Type: BLOOD SPECIMENOrdering Facility: [facility] Address: [address] [place] [address] Performed By: #### 5 7021-8 ####[facility] LABCLIA [id number] [place] [address] [place] Hemoglobin (Bld) [Mass/Vol] 13.6 g/dL Normal 11.5-15.5 [facility] Comment on above: Order Comment: Speci men Type: BLOOD SPECIMENOrdering Facility: [facility] Address: [address] [place] [address] Performed By: #### 5 7021-8 ####[facility] LABCLIA [id number] [place] [address] [place] Immature granulocytes (Bld) [#/Vol] 0.05 10*3/uL Normal <0.10 [facility] Comment on above: Order Comment: Speci men Type: BLOOD SPECIMENOrdering Facility: [facility] Address: [address] [place] [address] Performed By: #### 5 7021-8 ####[facility] LABCLIA [id number] [place] [address] [place] Immature granulocytes/100 WBC (Bld) 0.5 % Normal [facility] Comment on above: Order Comment: Speci men Type: BLOOD SPECIMENOrdering Facility: [facility] Address: [address] [place] [address] Performed By: #### 5 7021-8 ####[facility] LABCLIA [id number] [place] [address] [place] Lymphocytes (Bld) [#/Vol] 2.43 10*3/uL Normal 1.00-4.00 [facility] Comment on above: Order Comment: Speci men Type: BLOOD SPECIMENOrdering Facility: [facility] Address: [address] [place] [address] Performed By: #### 5 7021-8 ####[facility] LABCLIA [id number] [place] [address] [place] Lymphocytes/100 WBC (Bld) 25.2 % Normal [facility] Comment on above: Order Comment: Speci men Type: BLOOD SPECIMENOrdering Facility: [facility] Address: [address] [place] [address] Performed By: #### 5 7021-8 ####[facility] LABCLIA [id number] [place] [address] [place] MCH (RBC) [Entitic mass] 28.9 pg Normal 26.0-34.0 [facility] Comment on above: Order Comment: Speci men Type: BLOOD SPECIMENOrdering Facility: [facility] Address: [address] [place] [address] Performed By: #### 5 7021-8 ####[facility] LABCLIA [id number] [place] [address] [place] MCHC (RBC) [Mass/Vol] 30.5 g/dL Normal 30.5-36.0 [facility] Comment on above: Order Comment: Speci men Type: BLOOD SPECIMENOrdering Facility: [facility] Address: [address] [place] [address] Performed By: #### 5 7021-8 ####[facility] LABCLIA [id number] [place] [address] [place] MCV (RBC) [Entitic vol] 94.7 fL Normal 80.0-100.0 [facility] Comment on above: Order Comment: Speci men Type: BLOOD SPECIMENOrdering Facility: [facility] Address: [address] [place] [address] Performed By: #### 5 7021-8 ####[facility] LABCLIA [id number] [place] [address] [place] Monocytes (Bld) [#/Vol] 0.66 10*3/uL Normal <0.87 [facility] Comment on above: Order Comment: Speci men Type: BLOOD SPECIMENOrdering Facility: [facility] Address: [address] [place] [address] Performed By: #### 5 7021-8 ####[facility] LABCLIA [id number] [place] [address] [place] Monocytes/100 WBC (Bld) 6.8 % Normal [facility] Comment on above: Order Comment: Speci men Type: BLOOD SPECIMENOrdering Facility: [facility] Address: [address] [place] [address] Performed By: #### 5 7021-8 ####[facility] LABCLIA [id number] [place] [address] [place] Neutrophils (Bld) [#/Vol] 6.40 10*3/uL Normal 1.45-7.50 [facility] Comment on above: Order Comment: Speci men Type: BLOOD SPECIMENOrdering Facility: [facility] Address: [address] [place] [address] Performed By: #### 5 7021-8 ####[facility] LABCLIA [id number] [place] [address] [place] Neutrophils/100 WBC (Bld) 66.3 % Normal [facility] Comment on above: Order Comment: Speci men Type: BLOOD SPECIMENOrdering Facility: [facility] Address: [address] [place] [address] Performed By: #### 5 7021-8 ####[facility] LABCLIA [id number] [place] [address] [place] Nucleated RBC (Bld) [#/Vol] 10*3/uL Normal <0.01 [facility] Comment on above: Order Comment: Speci men Type: BLOOD SPECIMENOrdering Facility: [facility] Address: [address] [place] [address] Performed By: #### 5 7021-8 ####[facility] LABCLIA [id number] [place] [address] [place] Nucleated RBC/100 WBC (Bld) [Ratio] 0.0 /100 WBC Normal [facility] Comment on above: Order Comment: Speci men Type: BLOOD SPECIMENOrdering Facility: [facility] Address: [address] [place] [address] Performed By: #### 5 7021-8 ####[facility] LABIA [id number] [place] [address] [place] Platelet mean volume (Bld) [Entitic vol] 9.6 fL Normal 9.0-12.7 [facility] Comment on above: Order Comment: Speci men Type: BLOOD SPECIMENOrdering Facility: [facility] Address: [address] [place] [address] Performed By: #### 5 7021-8 ####[facility] LABIA [id number] [place] [address] [place] Platelets (Bld) [#/Vol] 248 10*3/uL Normal 150-400 [facility] Comment on above: Order Comment: Speci men Type: BLOOD SPECIMENOrdering Facility: [facility] Address: [address] [place] [address] Performed By: #### 5 7021-8 ####[facility] LABCLIA [id number] [place] [address] [place] RBC (Bld) [#/Vol] 4.71 10*6/uL Normal 3.90-5.20 [facility] Comment on above: Order Comment: Speci men Type: BLOOD SPECIMENOrdering Facility: [facility] Address: [address] [place] [address] Performed By: #### 5 7021-8 ####[facility] LABCLIA [id number] [place] [address] [place] WBC (Bld) [#/Vol] 9.66 10*3/uL Normal 3.70-11.00 [facility] Comment on above: Order Comment: Speci men Type: BLOOD SPECIMENOrdering Facility: [facility] Address: [address] [place] [address] Performed By: #### 5 7021-8 ####[facility] LABCLIA [id number] [place] [address] [place] CNOVon 01-21-2024 CNOV Normal [facility] XR CHEST 2V FRONTAL/LATon XR CHEST 2V FRONTAL/LAT Normal [facility] XR Chest PA and Lateralon IMPRESSION: No acute radiographic abnormality. Revenue Cycle Specialist: SARWAT Transcribe Date/Time: Jan 21 2024 12:12P Dictated by : DELIO CALDWELL MD This examination was interpreted and the report reviewed and electronically signed by: DELIO CALDWELL MD on Jan 21 2024 12:13PM [facility] DIVISION OF RADIOLOGY * * *Final Report* [...] changes. IMPRESSION IMPRESSION: No acute radiographic abnormality. Revenue Cycle Specialist: PSCB Transcribe Date/Time: Jan 21 2024 12:12P Dictated by : DELIO CALDWELL MD This examination was interpreted and the report reviewed and electronically signed by: DELIO CALDWELL MD on Jan 21 2024 12:13PM EST [facility] Radiology Study observation (narrative) [facility] XR Chest PA and LateralOrder ed By: Ccf Provider on 01-21-2024 [facility] CNPNon 01-18-2024 CNPN Normal [facility] CNOVon 01-13-2024 CNOV Normal [facility] CNPNon 01-11-2024 CNPN Normal [facility] CNPNon 01-05-2024 CNPN Normal [facility] .Auto Diffon 01-04-2024 Basophil, Absolute 0.0 10 3/mcL Normal 0.0-0.2 [facility] ([place]) Comment on above: Performed By: #### M DW, CBC, ADIFF, BMP, ANEU, GFR, TROPHS, PBNP #### [address] [address] Basophils/100 WBC (Bld) 0.3 % Normal 0.0-2.5 [facility] ([place]) Comment on above: Performed By: #### M DW, CBC, ADIFF, BMP, ANEU, GFR, TROPHS, PBNP #### [address] [address] Eosinophil, Absolute 0.1 10 3/mcL Normal 0.0-0.4 [facility] ([place]) Comment on above: Performed By: #### M DW, CBC, ADIFF, BMP, ANEU, GFR, TROPHS, PBNP #### [address] [address] Eosinophils/100 WBC (Bld) 0.9 % Normal 0.0-7.0 [facility] ([place]) Comment on above: Performed By: #### M DW, CBC, ADIFF, BMP, ANEU, GFR, TROPHS, PBNP #### [address] [address] Lymphocyte, Absolute 2.1 10 3/mcL Normal 0.8-3.9 [facility] ([place]) Comment on above: Performed By: #### M DW, CBC, ADIFF, BMP, ANEU, GFR, TROPHS, PBNP #### [address] [address] Lymphocytes/100 WBC (Bld) 24.7 % Normal 10.0-50.0 [facility] ([place]) Comment on above: Performed By: #### M DW, CBC, ADIFF, BMP, ANEU, GFR, TROPHS, PBNP #### [address] [address] Monocyte, Absolute 0.5 10 3/mcL Normal 0.2-1.0 [facility] ([place]) Comment on above: Performed By: #### M DW, CBC, ADIFF, BMP, ANEU, GFR, TROPHS, PBNP #### [address] [address] Monocytes/100 WBC (Bld) 6.4 % Normal 1.7-13.0 [facility] ([place]) Comment on above: Performed By: #### M DW, CBC, ADIFF, BMP, ANEU, GFR, TROPHS, PBNP #### [address] [address] Neutrophils/100 WBC (Bld) 67.7 % Normal 37.0-80.0 [facility] ([place]) Comment on above: Performed By: #### M DW, CBC, ADIFF, BMP, ANEU, GFR, TROPHS, PBNP #### [address] [address] .GFRon 01-04-2024 GFR 89 ml/min/1.73sqm Normal [facility] ([place]) Comment on above: Result Comment: GFR Population [...] ADIFF, BMP, ANEU, GFR, TROPHS, PBNP #### [address] [address] GFR Non- 73 ml/min/1.73sqm Normal [facility] ([place]) Comment on above: Result Comment: GFR Population [...] ADIFF, BMP, ANEU, GFR, TROPHS, PBNP #### [address] [address] .MDWon 01-04-2024 Monocyte Distribution Width 18.79 Normal 0.00-20.00 [facility] ([place]) Comment on above: Result Comment: For ED adult patients suspected of sepsis, MDW<=20.0 does not rule out sepsis or risk of sepsis Performed By: #### M DW, CBC, ADIFF, BMP, ANEU, GFR, TROPHS, PBNP #### [address] [address] .NEUABSon 01-04-2024 Neutrophil, Absolute 5.8 10 3/mcL Normal 2.9-6.2 [facility] ([place]) Comment on above: Performed By: #### M DW, CBC, ADIFF, BMP, ANEU, GFR, TROPHS, PBNP #### [address] [address] BMPon 01-04-2024 BUN/Creatinine Ratio 13 ratio Normal 7-27 [facility] ([place]) Comment on above: Performed By: #### M DW, CBC, ADIFF, BMP, ANEU, GFR, TROPHS, PBNP #### [address] [address] Calcium [Mass/Vol] 8.9 mg/dL Normal 8.4-10.2 [facility] ([place]) Comment on above: Performed By: #### M DW, CBC, ADIFF, BMP, ANEU, GFR, TROPHS, PBNP #### [address] [address] Chloride [Moles/Vol] 105 mmol/L Normal 98-107 [facility] ([place]) Comment on above: Performed By: #### M DW, CBC, ADIFF, BMP, ANEU, GFR, TROPHS, PBNP #### [address] [address] CO2 [Moles/Vol] 28 mmol/L Normal 22-29 [facility] ([place]) Comment on above: Performed By: #### M DW, CBC, ADIFF, BMP, ANEU, GFR, TROPHS, PBNP #### [address] [address] Creatinine [Mass/Vol] 0.84 mg/dL Normal 0.55-1.02 [facility] ([place]) Comment on above: Performed By: #### M DW, CBC, ADIFF, BMP, ANEU, GFR, TROPHS, PBNP #### [address] [address] Electrolyte Balance 8.0 mEq/L Normal 4.0-15.0 [facility] ([place]) Comment on above: Performed By: #### M DW, CBC, ADIFF, BMP, ANEU, GFR, TROPHS, PBNP #### [address] [address] Glucose [Mass/Vol] 116 mg/dL High 70-105 [facility] ([place]) Comment on above: Performed By: #### M DW, CBC, ADIFF, BMP, ANEU, GFR, TROPHS, PBNP #### [address] [address] Potassium [Moles/Vol] 4.0 mmol/L Normal 3.5-5.1 [facility]placed by [facility]) Comment on above: Performed By: #### M DW, CBC, ADIFF, BMP, ANEU, GFR, TROPHS, PBNP #### [address] [address] Sodium [Moles/Vol] 141 mmol/L Normal 136-145 [facility] ([place]) Comment on above: Performed By: #### M DW, CBC, ADIFF, BMP, ANEU, GFR, TROPHS, PBNP #### [address] [address] Urea nitrogen [Mass/Vol] 11 mg/dL Normal 7-18 [facility] ([place]) Comment on above: Performed By: #### M DW, CBC, ADIFF, BMP, ANEU, GFR, TROPHS, PBNP #### [address] [address] CBCon 01-04-2024 Erythrocyte distribution width (RBC) [Ratio] 15.0 % High 11.5-14.5 [facility] ([place]) Comment on above: Performed By: #### M DW, CBC, ADIFF, BMP, ANEU, GFR, TROPHS, PBNP #### [address] [address] Hematocrit (Bld) [Volume fraction] 43.7 % Normal 37.0-47.0 [facility] ([place]) Comment on above: Performed By: #### M DW, CBC, ADIFF, BMP, ANEU, GFR, TROPHS, PBNP #### [place] [id number] Hgb 14.3 G/dL Normal 12.0-16.0 [facility] ([place]) Comment on above: Performed By: #### M DW, CBC, ADIFF, BMP, ANEU, GFR, TROPHS, PBNP #### [address] [address] MCH (RBC) [Entitic mass] 30.0 pg Normal 27.0-31.2 [facility] ([place]) Comment on above: Performed By: #### M DW, CBC, ADIFF, BMP, ANEU, GFR, TROPHS, PBNP #### [address] [address] MCHC 32.8 G/dL Low 33.0-37.0 [facility] ([place]) Comment on above: Performed By: #### M DW, CBC, ADIFF, BMP, ANEU, GFR, TROPHS, PBNP #### [address] [address] MCV (RBC) [Entitic vol] 91.5 fL Normal 80.0-94.0 [facility] ([place]) Comment on above: Performed By: #### M DW, CBC, ADIFF, BMP, ANEU, GFR, TROPHS, PBNP #### [place] [id number] Platelet 237 10 3/mcL Normal 130-400 [facility] ([place]) Comment on above: Performed By: #### M DW, CBC, ADIFF, BMP, ANEU, GFR, TROPHS, PBNP #### [address] [address] Platelet mean volume (Bld) [Entitic vol] 7.2 fL Low 7.4-10.4 [facility] ([place]) Comment on above: Performed By: #### M DW, CBC, ADIFF, BMP, ANEU, GFR, TROPHS, PBNP #### [address] [address] RBC 4.78 10 6/mcL Normal 4.20-5.40 [facility] ([place]) Comment on above: Performed By: #### M DW, CBC, ADIFF, BMP, ANEU, GFR, TROPHS, PBNP #### [address] [address] WBC 8.6 10 3/mcL Normal 4.6-10.8 [facility] ([place]) Comment on above: Performed By: #### M DW, CBC, ADIFF, BMP, ANEU, GFR, TROPHS, PBNP #### [address] [address] CNPNon 01-04-2024 CNPN Normal [facility] CT ANGIOGRAPHY CHEST W/CONTR Marcio 01-04-2024 [...] 01/04/2024 6:51:36 PM Ordering Provider: ROSA FARAH [facility] ([place]) LABORATORYOrdered By: SYSTEM SYSTEM on 01-04-2024 Basophil, [...] ng/L Male: 0-76 ng/L Testing performed on Smart Sparrow using a homogeneous sandwich chemiluminescent immunoassay based on Hele Mass[employer] technology. Urea nitrogen [Mass/Vol] 11 mg/dL Normal 7 - 18 mg/dL AO ADM SS Urea nitrogen/Creatinine [Mass ratio] 13 ratio Normal 7 - 27 ratio AO ADM SS WBC (Bld) [#/Vol] 8.6 103/mcL Normal 4.6 - 10.8 10^3/mcL AO Workflow SS PBNPon 01-04-2024 Natriuretic peptide B (Bld) [Mass/Vol] 11 pg/mL Normal 0-125 [facility] ([place]) Comment on above: Result Comment: NT-p roBNP results of less than 300 pg/mL effectively rules out acute congestive heart failure with 99% negative predictive value. Performed By: #### M DW, CBC, ADIFF, BMP, ANEU, GFR, TROPHS, PBNP #### [address] [address] [facility]ATIV[facility] 01-04-2024 High Sensitivity Troponin I <4 Normal 0-51 [facility] ([place]) Comment on above: Result Comment: High Sensitive Troponin I Reference Ranges: Female: 0-51 ng/L Male: 0-76 ng/L Testing performed on Smart Sparrow using a homogeneous sandwich chemiluminescent immunoassay based on Hele Mass[employer] technology. Performed By: #### M DW, CBC, ADIFF, BMP, ANEU, GFR, TROPHS, PBNP #### [address] [address] Basic metabolic 2000 panelon 01-03-2024 Anion gap [Moles/Vol] 11 mmol/L Normal 8-15 [facility] Comment on above: Order Comment: Speci men Type: BLOOD SPECIMENOrdering Facility: [facility] Address: [address] [place] [address] Performed By: #### 2 4321-2, 25383-2, 50279-8 ####[facility] LABCLIA [id number] [place] [address] [place] Calcium [Mass/Vol] 9.7 mg/dL Normal 8.5-10.2 [facility] Comment on above: Order Comment: Speci men Type: BLOOD SPECIMENOrdering Facility: [facility] Address: [address] [place] [address] Performed By: #### 2 4321-2, 24974-3, 35738-8 ####[facility] LABCLIA [id number] [place] [address] [place] Chloride [Moles/Vol] 104 mmol/L Normal 98-107 [facility] Comment on above: Order Comment: Speci men Type: BLOOD SPECIMENOrdering Facility: [facility] Address: [address] [place] [address] Performed By: #### 2 4321-2, 90007-9, 73442-5 ####[facility] LABCLIA [id number] [place] [address] [place] CO2 [Moles/Vol] 25 mmol/L Normal 22-30 [facility] Comment on above: Order Comment: Speci men Type: BLOOD SPECIMENOrdering Facility: [facility] Address: [address] [place] [address] Performed By: #### 2 4321-2, 81155-4, 73312-9 ####[facility] LABCLIA [id number] [facility] [place] [id number] [place] Creatinine [Mass/Vol] 0.77 mg/dL Normal 0.58-0.96 [facility] Comment on above: Order Comment: Rashad irwin Type: BLOOD SPECIMENOrdering Facility: [facility] Address: [address] [place] [address] Performed By: #### 2 4321-2, 75192-6, 33212-3 ####[facility] LABCLIA [id number] [place] [address] [place] Creatinine and Glomerular filtration rate.predicted panel (S/P/Bld) 97 mL/min/1.73m??? Normal >=60 [facility] Comment on above: Order Comment: Rashad irwin Type: BLOOD SPECIMENOrdering Facility: [facility] Address: [address] [place] [address] Result Comment: Jen mated Glomerular Filtration Rate [...] GFR. Performed By: #### 2 4321-2, , 89203-1 ####[facility] LABCLIA [id number] [place] [address] [place] Glucose [Mass/Vol] 90 mg/dL Normal 74-99 [facility] Comment on above: Order Comment: Rashad irwin Type: BLOOD SPECIMENOrdering Facility: [facility] Address: [address] [place] [address] Result Comment: The [place] Diabetes Association (ADA) provides guidance for cutoff [...] Standards of Medical Care in Diabetes 2016, [place] [employer] Association. Diabetes Care. 2016.39(Suppl 1). Performed By: #### 2 4321-2, , 16688-4 ####[facility] LABCLIA [id number] [address] [address] [place] Potassium [Moles/Vol] 4.4 mmol/L Normal 3.7-5.1 [facility] Comment on above: Order Comment: Speci men Type: BLOOD SPECIMENOrdering Facility: [facility] Address: [address] [place] [address] Performed By: #### 2 4321-2, , 22101-6 ####[facility] LABCLIA [id number] [place] [address] [place] Sodium [Moles/Vol] 140 mmol/L Normal 136-144 [facility] Comment on above: Order Comment: Speci men Type: BLOOD SPECIMENOrdering Facility: [facility] Address: [address] [place] [address] Performed By: #### 2 1-2, , 70936-9 ####[facility] LABIA [id number] [place] [id number] [place] Urea nitrogen [Mass/Vol] 16 mg/dL Normal 7-21 [facility] Comment on above: Order Comment: Speci men Type: BLOOD SPECIMENOrdering Facility: [facility] Address: [address] [place] [address] Performed By: #### 2 4321-2, , 70098-7 ####[facility] LABCLIA [id number] [address] [address] [place] CBC W Auto Differential pane l (Bld)on 01-03-2024 Basophils (Bld) [#/Vol] 0.04 10*3/uL [facility] Basophils/100 WBC (Bld) 0.4 % [facility] Differential cell count method Nom (Bld) Auto [facility] Eosinophils (Bld) [#/Vol] 0.06 10*3/uL [facility] Eosinophils/100 WBC (Bld) 0.6 % [facility] Erythrocyte distribution width (RBC) [Ratio] 14.2 % 11.5 - 15.0 % [facility] Hematocrit (Bld) [Volume fraction] 48.0 % High 36.0 - 46.0 % [facility] Hemoglobin (Bld) [Mass/Vol] 14.6 g/dL 11.5 - 15.5 g/dL [facility] Immature granulocytes (Bld) [#/Vol] 0.04 10*3/uL [facility] Immature granulocytes/100 WBC (Bld) 0.4 % [facility] Interpretation and review of laboratory results Abnormal [facility] Lymphocytes (Bld) [#/Vol] 2.70 10*3/uL [facility] Lymphocytes/100 WBC (Bld) 27.7 % [facility] MCH (RBC) [Entitic mass] 29.0 pg 26.0 - 34.0 pg [facility] MCHC (RBC) [Mass/Vol] 30.4 g/dL Low 30.5 - 36.0 g/dL [facility] MCV (RBC) [Entitic vol] 95.2 fL 80.0 - 100.0 fL [facility] Monocytes (Bld) [#/Vol] 0.59 10*3/uL [facility] Monocytes/100 WBC (Bld) 6.0 % [facility] Neutrophils (Bld) [#/Vol] 6.33 10*3/uL [facility] Neutrophils/100 WBC (Bld) 64.9 % [facility] Nucleated RBC (Bld) [#/Vol] [facility] Nucleated RBC/100 WBC (Bld) [Ratio] 0.0 % /100 WBC [facility] Platelet mean volume (Bld) [Entitic vol] 9.9 fL 9.0 - 12.7 fL [facility] Platelets (Bld) [#/Vol] 262 10*3/uL [facility] RBC (Bld) [#/Vol] 5.04 10*6/uL 3.90 - 5.2 0 m/uL [facility] WBC (Bld) [#/Vol] 9.76 10*3/uL [facility] Basophils (Bld) [#/Vol] 0.04 10*3/uL Normal <0.11 [facility] Comment on above: Order Comment: Speci men Type: BLOOD SPECIMENOrdering Facility: [facility] Address: [address] [place] [address] Performed By: #### 5 7021-8 ####[facility] LABCLIA [id number] [facility] [address] [place] Basophils/100 WBC (Bld) 0.4 % Normal [facility] Comment on above: Order Comment: Speci men Type: BLOOD SPECIMENOrdering Facility: [facility] Address: [address] [place] [address] Performed By: #### 5 7021-8 ####[facility] LABCLIA [id number] [place] [address] [place] Differential cell count method Nom (Bld) Auto Normal [facility] Comment on above: Order Comment: Speci men Type: BLOOD SPECIMENOrdering Facility: [facility] Address: [address] [place] [address] Performed By: #### 5 7021-8 ####[facility] LABCLIA [id number] [place] [address] [place] Eosinophils (Bld) [#/Vol] 0.06 10*3/uL Normal <0.46 [facility] Comment on above: Order Comment: Speci men Type: BLOOD SPECIMENOrdering Facility: [facility] Address: [address] [place] [address] Performed By: #### 5 7021-8 ####[facility] LABCLIA [id number] [place] [address] [place] Eosinophils/100 WBC (Bld) 0.6 % Normal [facility] Comment on above: Order Comment: Speci men Type: BLOOD SPECIMENOrdering Facility: [facility] Address: [address] [place] [address] Performed By: #### 5 7021-8 ####[facility] LABCLIA [id number] [place] [address] [place] Erythrocyte distribution width (RBC) [Ratio] 14.2 % Normal 11.5-15.0 [facility] Comment on above: Order Comment: Speci men Type: BLOOD SPECIMENOrdering Facility: [facility] Address: [address] [place] [address] Performed By: #### 5 7021-8 ####[facility] LABIA [id number] [place] [address] [place] Hematocrit (Bld) [Volume fraction] 48.0 % High 36.0-46.0 [facility] Comment on above: Order Comment: Speci men Type: BLOOD SPECIMENOrdering Facility: [facility] Address: [address] [place] [address] Performed By: #### 5 7021-8 ####[facility] LABIA [id number] [place] [address] [place] Hemoglobin (Bld) [Mass/Vol] 14.6 g/dL Normal 11.5-15.5 [facility] Comment on above: Order Comment: Speci men Type: BLOOD SPECIMENOrdering Facility: [facility] Address: [address] [place] [address] Performed By: #### 5 7021-8 ####[facility] LABCLIA [id number] [place] [address] [place] Immature granulocytes (Bld) [#/Vol] 0.04 10*3/uL Normal <0.10 [facility] Comment on above: Order Comment: Speci men Type: BLOOD SPECIMENOrdering Facility: [facility] Address: [address] [place] [address] Performed By: #### 5 7021-8 ####[facility] LABCLIA [id number] [place] [address] [place] Immature granulocytes/100 WBC (Bld) 0.4 % Normal [facility] Comment on above: Order Comment: Speci men Type: BLOOD SPECIMENOrdering Facility: [facility] Address: [address] [place] [address] Performed By: #### 5 7021-8 ####[facility] LABCLIA [id number] [place] [address] [place] Lymphocytes (Bld) [#/Vol] 2.70 10*3/uL Normal 1.00-4.00 [facility] Comment on above: Order Comment: Speci men Type: BLOOD SPECIMENOrdering Facility: [facility] Address: [address] [place] [address] Performed By: #### 5 7021-8 ####[facility] LABCLIA [id number] [place] [address] [place] Lymphocytes/100 WBC (Bld) 27.7 % Normal [facility] Comment on above: Order Comment: Speci men Type: BLOOD SPECIMENOrdering Facility: [facility] Address: [address] [place] [address] Performed By: #### 5 7021-8 ####[facility] LABCLIA [id number] [place] [address] [place] MCH (RBC) [Entitic mass] 29.0 pg Normal 26.0-34.0 [facility] Comment on above: Order Comment: Speci men Type: BLOOD SPECIMENOrdering Facility: [facility] Address: [address] [place] [address] Performed By: #### 5 7021-8 ####[facility] LABCLIA [id number] [place] [address] [place] MCHC (RBC) [Mass/Vol] 30.4 g/dL Low 30.5-36.0 [facility] Comment on above: Order Comment: Speci men Type: BLOOD SPECIMENOrdering Facility: [facility] Address: [address] [place] [address] Performed By: #### 5 7021-8 ####[facility] LABCLIA [id number] [place] [address] [place] MCV (RBC) [Entitic vol] 95.2 fL Normal 80.0-100.0 [facility] Comment on above: Order Comment: Speci men Type: BLOOD SPECIMENOrdering Facility: [facility] Address: [address] [place] [address] Performed By: #### 5 7021-8 ####[facility] LABCLIA [id number] [place] [address] [place] Monocytes (Bld) [#/Vol] 0.59 10*3/uL Normal <0.87 [facility] Comment on above: Order Comment: Speci men Type: BLOOD SPECIMENOrdering Facility: [facility] Address: [address] [place] [address] Performed By: #### 5 7021-8 ####[facility] LABCLIA [id number] [place] [address] [place] Monocytes/100 WBC (Bld) 6.0 % Normal [facility] Comment on above: Order Comment: Speci men Type: BLOOD SPECIMENOrdering Facility: [facility] Address: [address] [place] [address] Performed By: #### 5 7021-8 ####[facility] LABCLIA [id number] [place] [address] [place] Neutrophils (Bld) [#/Vol] 6.33 10*3/uL Normal 1.45-7.50 [facility] Comment on above: Order Comment: Speci men Type: BLOOD SPECIMENOrdering Facility: [facility] Address: [address] [place] [address] Performed By: #### 5 7021-8 ####[facility] LABCLIA [id number] [place] [address] [place] Neutrophils/100 WBC (Bld) 64.9 % Normal [facility] Comment on above: Order Comment: Speci men Type: BLOOD SPECIMENOrdering Facility: [facility] Address: [address] [place] [address] Performed By: #### 5 7021-8 ####[facility] LABCLIA [id number] [place] [address] [place] Nucleated RBC (Bld) [#/Vol] 10*3/uL Normal <0.01 [facility] Comment on above: Order Comment: Speci men Type: BLOOD SPECIMENOrdering Facility: [facility] Address: [address] [place] [address] Performed By: #### 5 7021-8 ####[facility] LABCLIA [id number] [place] [address] [place] Nucleated RBC/100 WBC (Bld) [Ratio] 0.0 /100 WBC Normal [facility] Comment on above: Order Comment: Speci men Type: BLOOD SPECIMENOrdering Facility: [facility] Address: [address] [place] [address] Performed By: #### 5 7021-8 ####[facility] LABCLIA [id number] [place] [address] [place] Platelet mean volume (Bld) [Entitic vol] 9.9 fL Normal 9.0-12.7 [facility] Comment on above: Order Comment: Speci men Type: BLOOD SPECIMENOrdering Facility: [facility] Address: [address] [place] [address] Performed By: #### 5 7021-8 ####[facility] LABCLIA [id number] [place] [address] [place] Platelets (Bld) [#/Vol] 262 10*3/uL Normal 150-400 [facility] Comment on above: Order Comment: Speci men Type: BLOOD SPECIMENOrdering Facility: [facility] Address: [address] [place] [address] Performed By: #### 5 7021-8 ####[facility] LABCLIA [id number] [place] [address] [place] RBC (Bld) [#/Vol] 5.04 10*6/uL Normal 3.90-5.20 [facility] Comment on above: Order Comment: Speci men Type: BLOOD SPECIMENOrdering Facility: [facility] Address: [address] [place] [address] Performed By: #### 5 7021-8 ####[facility] LABCLIA [id number] [place] [address] [place] WBC (Bld) [#/Vol] 9.76 10*3/uL Normal 3.70-11.00 [facility] Comment on above: Order Comment: Speci men Type: BLOOD SPECIMENOrdering Facility: [facility] Address: [address] [place] [address] Performed By: #### 5 7021-8 ####[facility] LABIA [id number] [place] [address] [place] CNOVon 01-03-2024 CNOV Normal [facility] D dimer FEU PPP-mCncon 01-02 Fibrin D-dimer FEU (PPP) [Mass/Vol] 970 ng/mL FEU High <500 [facility] Comment on above: Order Comment: Speci men Type: BLOOD SPECIMENOrdering Facility: [facility] Address: [address] [place] [address] Result Comment: Noe en Plasma Aliquot Performed By: #### 4 8065-7 ####[facility] LABCLIA [id number] [place] [address] [place] D-DIMEROrdered By: Vance Soriano on 01-03-2024 Fibrin D-dimer FEU (PPP) [Mass/Vol] 970 High NINF [facility] Comment on above: Frozen Plasma Aliquo t ECG COMPLETEon 01-03-2024 Atrial Rate 75 BPM [facility] Calculated P [place] 51 degrees [place] Calculated R [place] 48 degrees [facility] Calculated T [place] 35 degrees [place] P-R Interval 194 ms [facility] QRS Duration 78 ms [facility] QT Interval 372 ms [facility] QTC Calculation (Bazett) 415 ms [facility] Ventricular Rate 75 BPM [facility] NORMAL SINUS RHYTHM NORMAL ECG Confirmed by MD THOMPSON QARAB ([id number]) on 01/03/2024 4:19:53 PM [facility] NAME : DARREN REINOSO PID : [id number] : 1980 Gender : Female Race : ORD : [id number] Procedure Date : Jan 03 2024 12:31:49 Edit Date : Jan 03 2024 16:20:00 Diagnosis: NORMAL SINUS RHYTHM NORMAL ECG Confirmed by MD THOMPSON QARAB ([id number]) on 01/03/2024 4:19:53 PM Test Reason : R07.9 Chest pain, unspecified type Location : 185 : WO Overread By : MD THOMPSON QARAB Edited By : MD THOMPSON QARAB Referred By : , Acquired by : , [facility] ECG COMPLETE Normal [facility] Fibrin D-dimer FEU (PPP) [Ma ss/Vol]Ordered By: Vance Grover on 01-03-2024 Interpretation and review of laboratory results Abnormal [facility] 500 ng/mL FEU is the D [...] et al. Odette Int Med 2016 165:253. [facility] Magnesium SerPl-mCncon 01-02 Magnesium [Mass/Vol] 2.1 mg/dL Normal 1.7-2.3 [facility] Comment on above: Order Comment: Rashad irwin Type: BLOOD SPECIMENOrdering Facility: [facility] Address: [address] [place] [address] Performed By: #### 2 4321-2, 96685-8, 80983-5 ####[facility] LABCLIA [id number] [address] [place] NT-proBNP [facility]02 Natriuretic peptide.B prohormone N-Terminal [Mass/Vol] <36 Normal <125 [facility] Comment on above: Order Comment: Rashad irwin Type: BLOOD SPECIMENOrdering Facility: [facility] Address: [address] [place] [address] Performed By: #### 2 4321-2, 05368-7, 66340-7 ####[facility] LABCLIA [id number] [place] [address] [place] XR CHEST 2V FRONTAL/LATon XR CHEST 2V FRONTAL/LAT Normal [facility] XR Chest PA and Lateralon IMPRESSION: No acute radiographic abnormality. Revenue Cycle Specialist: PSCB Transcribe Date/Time: Jan 03 2024 3:55P Dictated by : DELIO CALDWELL MD This examination was interpreted and the report reviewed and electronically signed by: DELIO CALDWELL MD on Jan 03 2024 3:55PM [facility] DIVISION OF RADIOLOGY * * *Final Report* [...] changes. IMPRESSION IMPRESSION: No acute radiographic abnormality. Revenue Cycle Specialist: SARWAT Transcribe Date/Time: Jan 03 2024 3:55P Dictated by : DELIO CALDWELL MD This examination was interpreted and the report reviewed and electronically signed by: DELIO CALDWELL MD on Jan 03 2024 3:55PM EST [facility] Radiology Study observation (narrative) [facility] XR Chest PA and LateralOrder ed By: Ccf Provider on 01-03-2024 [facility] No Panel Informationon 11-22 IMPRESSION: Hepatic steatosis. Nonenlarged spleen. Revenue Cycle Specialist: PSCB Transcribe Date/Time: Nov 23 2023 11:03A Dictated by : GHAZALA HAQ MD This examination was interpreted and the report reviewed and electronically signed by: GHAZALA HAQ MD on Nov 23 2023 11:06AM [facility] RADIOLOGY No Panel InformationOrdered By: Ccf Provider on 11-23-2023 [facility] US Abdomen RUQon 11-23-2023 * * [...] cm, normal. There are no splenic lesions. [facility] RADIOLOGY Provider, Latisha Viramontes - 11/23/2023 [...] lesions. IMPRESSION IMPRESSION: Hepatic steatosis. Nonenlarged spleen. Revenue Cycle Specialist: PSCB Transcribe Date/Time: Nov 23 2023 11:03A Dictated by : GHAZALA HAQ MD This examination was interpreted and the report reviewed and electronically signed by: GHAZALA HAQ MD on Nov 23 2023 11:06AM EST [facility] Radiology Study observation (narrative) [facility] US Spleenon 11-23-2023 * * *Final [...] cm, normal. There are no splenic lesions. [facility] RADIOLOGY Provider, Latisha Viramontes - 11/23/2023 [...] lesions. IMPRESSION IMPRESSION: Hepatic steatosis. Nonenlarged spleen. Revenue Cycle Specialist: [facility] Transcribe Date/Time: Nov 23 2023 11:03A Dictated by : GHAZALA HAQ MD This examination was interpreted and the report reviewed and electronically signed by: GHAZALA HAQ MD on Nov 23 2023 11:06AM EST [facility] Radiology Study observation (narrative) [facility] AMYLASEon 11-16-2023 Amylase [Catalytic activity/Vol] 29 U/L Low 30 - 104 U/L [facility] Comprehensive metabolic 2000 panelon 11-16-2023 Albumin [Mass/Vol] 3.9 g/dL 3.9 - 4.9 g/dL [facility] ALP [Catalytic activity/Vol] 104 U/L 34 - 123 U/L [facility] ALT [Catalytic activity/Vol] 43 U/L High 7 - 38 U/L [facility] Anion gap [Moles/Vol] 10 mmol/L 8 - 15 mmol/L [facility] AST [Catalytic activity/Vol] 27 U/L 13 - 35 U/L [facility] Bilirubin [Mass/Vol] 0.3 mg/dL 0.2 - 1 .3 mg/dL [facility] Calcium [Mass/Vol] 9.4 mg/dL 8.5 - 10. 2 mg/dL [facility] Chloride [Moles/Vol] 106 mmol/L 98 - 10 7 mmol/L [facility] CO2 [Moles/Vol] 24 mmol/L 22 - 30 mmol/L [facility] Creatinine [Mass/Vol] 0.73 mg/dL 0.58 - 0.96 mg/dL [facility] GFR/1.73 sq M.predicted among non-blacks MDRD (S/P/Bld) [Vol rate/Area] 104 mL/min/{1.73_m2} - PINF [facility] Comment on above: Estimated Glomerular Filtration [...] 103 mg/dL High 74 - 99 mg/dL [facility] Comment on above: The [place] Diab[employer] Association (ADA) provides guidance for [...] Standards of Medical Care in Diabetes 2016, [place] [employer]. Diabetes Care. 2016.39(Suppl 1). Potassium [Moles/Vol] 4.1 mmol/L 3.7 - 5.1 mmol/L [facility] Protein [Mass/Vol] 6.8 g/dL 6.3 - 8.0 g/dL [facility] Sodium [Moles/Vol] 140 mmol/L 136 - 144 mmol/L [facility] Urea nitrogen [Mass/Vol] 10 mg/dL 7 - 21 mg/dL [facility] LIPASEon 11-16-2023 Lipase [Catalytic activity/Vol] 13 U/L Low 16 - 61 U/L [facility] No Panel Informationon 11-15 Interpretation and review of laboratory results Abnormal [facility] CBC W Auto Differential pane l (Bld)on 11-15-2023 Basophils (Bld) [#/Vol] 0.03 10*3/uL [facility] Basophils/100 WBC (Bld) 0.3 % [facility] Differential cell count method Nom (Bld) Auto [facility] Eosinophils (Bld) [#/Vol] 0.07 10*3/uL [facility] Eosinophils/100 WBC (Bld) 0.8 % [facility] Erythrocyte distribution width (RBC) [Ratio] 13.9 % 11.5 - 15.0 % [facility] Hematocrit (Bld) [Volume fraction] 45.2 % 36.0 - 46.0 % [facility] Hemoglobin (Bld) [Mass/Vol] 13.9 g/dL 11.5 - 15.5 g/dL [facility] Immature granulocytes (Bld) [#/Vol] 0.08 10*3/uL [facility] Immature granulocytes/100 WBC (Bld) 0.9 % [facility] Lymphocytes (Bld) [#/Vol] 2.59 10*3/uL [facility] Lymphocytes/100 WBC (Bld) 28.3 % [facility] MCH (RBC) [Entitic mass] 29.2 pg 26.0 - 34.0 pg [facility] MCHC (RBC) [Mass/Vol] 30.8 g/dL 30.5 - 36.0 g/dL [facility] MCV (RBC) [Entitic vol] 95.0 fL 80.0 - 100.0 fL [facility] Monocytes (Bld) [#/Vol] 0.64 10*3/uL [facility] Monocytes/100 WBC (Bld) 7.0 % [facility] Neutrophils (Bld) [#/Vol] 5.74 10*3/uL [facility] Neutrophils/100 WBC (Bld) 62.7 % [facility] Nucleated RBC (Bld) [#/Vol] [facility] Nucleated RBC/100 WBC (Bld) [Ratio] 0.0 % /100 WBC [facility] Platelet mean volume (Bld) [Entitic vol] 10.0 fL 9.0 - 12.7 fL [facility] Platelets (Bld) [#/Vol] 232 10*3/uL [facility] RBC (Bld) [#/Vol] 4.76 10*6/uL 3.90 - 5.2 0 m/uL [facility] WBC (Bld) [#/Vol] 9.15 10*3/uL [facility] Urinalysis complete panel (U )on 11-15-2023 Bacteria LM.HPF (Urine sed) [#/Area] Negative Negative /HPF [facility] Bilirubin Ql (U) Negative Negative [facility] Clarity (Unsp spec) Clear Clear [facility] Color (U) Yellow Yellow [facility] Epithelial cells LM.HPF (Urine sed) [#/Area] None Seen /HPF [facility] Glucose Test strip (U) [Mass/Vol] Negative Negative [facility] Hemoglobin Ql (U) Negative Negative [place] Hyaline casts (Urine sed) [#/Area] 0 /[LPF] 0 /LPF [facility] Ketones Ql (U) Negative Negative [facility] Leukocyte esterase Test strip Ql (U) Negative Negative [facility] Nitrite Ql (U) Negative Negative [facility] pH (U) 6.5 [pH] NINF - 8.5 [facility] Protein (U) [Mass/Vol] Negative Negative [facility] RBC LM.HPF (Urine sed) [#/Area] 0-2 /HPF 0-2 /HPF [facility] Specific gravity (U) [Rel density] 1.009 1.005 - 1.030 [facility] Urobilinogen Ql (U) 0.2 EU/dL 0.2-1.0 EU/dL [facility] WBC LM.HPF (Urine sed) [#/Area] 0-5 /HPF 0-5 /HPF [facility] This test was devjackio ped and its performance characteristics determined by [facility]'s [facility]ology [facility] ([facility]). It has not been cleared or approved by the FDA. [facility] is regulated under CLIA as qualified to perform high-complexity testing. This test is used for clinical purposes. It should not be regarded as investigational or for research. [facility] Pulmonary Visit Reporton Pulmonary Visit Report 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 Normal [facility] XR Chest PA and Lateralon IMPRESSION: No acute radiographic abnormality. Revenue Cycle Specialist: PSCB Transcribe Date/Time: Jul 09 2023 3:43P Dictated by : DELIO CALDWELL MD This examination was interpreted and the report reviewed and electronically signed by: DELIO CALDWELL MD on Jul 09 2023 3:43PM [facility] DIVISION OF RADIOLOGY * * *Final Report* [...] in the spine. DIVISION OF RADIOLOGY Provider, [facility] - 07/09/2023 * * *Final Report* [...] spine. IMPRESSION IMPRESSION: No acute radiographic abnormality. Revenue Cycle Specialist: SARWAT Transcribe Date/Time: Jul 09 2023 3:43P Dictated by : DELIO CALDWELL MD This examination was interpreted and the report reviewed and electronically signed by: DELIO CALDWELL MD on Jul 09 2023 3:43PM EST [facility] Radiology Study observation (narrative) [facility] XR Chest PA and LateralOrder ed By: Ccf Provider on 07-09-2023 [facility] Basophil percentageOrdered B y: Kamron Reza on 05-13-2023 Creatinine [Mass/Vol] 1.1 mg/dL 0.55-1.02 [facility] CREATININE FINGERSTICKon Creatinine [Mass/Vol] 1.1 mg/dL High 0.55-1.02 [facility] Comment on above: Performed By: #### L 9100.0200 #### [facility] Laboratory [address] [place], [address] GFR/1.73 sq M.predicted among non-blacks MDRD (S/P/Bld) [Vol rate/Area] 58.0000 mL/min/{1.73_m2} Low >60 [facility] Comment on above: Performed By: #### L 9100.0200 #### [facility] Laboratory [address] [place], [address] CTA Chest W/WO Contraston CTA Chest W/WO Contrast [facility] Imaging Services [address] [place] [address] CTA Chest W/WO Contrast MR#: [id number] Acct: [id number] Name: DARREN REINOSO Rep #: [id number] : 1980 F 43 From: Tarah schmid MD PCP: Dr. Babar Phillip MD Status: REG CLI Study: CTA Chest W/WO Contrast Date of Exam: 05/13/23 Exam# [id number] Ordering Dr: Kamron Cobb MD 1:[id number] EXAM: CT ANGIOGRAPHY CHEST WITHOUT AND WITH [...] Kamron Cobb MD; Dr. Babar Phillip MD Revenue Cycle Specialist: Signed Normal [facility] Laboratory - Chemistry and C hemistry - challengeOrdered By: Kamron Cobb on 05-13-2023 GFR/1.73 sq M.predicted among non-blacks MDRD (S/P/Bld) [Vol rate/Area] 58.0000 mL/min/{1.73_m2} >60 [facility] Pulmonary Visit Reporton Pulmonary Visit Report [facility] [place] [address] [place] [address] OFFICE VISIT Date of Service: 05/13/23 MR#: [id number] Acct: [id number] Name: DARREN REINOSO Rep #: [id number] : 1980 Provider: Dr. Kamron Cobb MD Age/Sex: 43/F Location: [facility] Status: Signed Assessment and Plan Assessment [...] female, currently under the care of Dr. aWlsh, who presents for evaluation secondary to shortness of breath and recent COVID-19. Since last visit, patient has been diagnosed with COVID-19 around [facility]. Patient has been compliant with her Symbicort [...] IH Q6 (more content not included)... Normal [facility] Bedside Glucoseon 05-03-2023 FINGERSTICK GLU 150 mg/dL High 74-106 [facility] Comment on above: Result Comment: LEONA GEMENT OF PATIENT CARE PER NURSING PROTOCOL Performed By: #### L 501.080 ####[facility] [address] [place], [address] Glucose Glucometer (BldC) [M ass/Vol]Ordered By: Steve Tirado on 05-03-2023 Glucose [Mass/Vol] 150 mg/dL 74-106 [facility] Comment on above: MANAGEMENT OF PATIEN T CARE PER NURSING PROTOCOL Operative Reporton 3 Operative Report [facility] Medical Records Department [address] [facility] [place] [address] Operative Report 05/03/23 1249 MR#: [id number] Acct: [id number] Name: DARREN REINOSO Rep #: [id number] : 1980 43 From: Steve Tirado MD PCP: Dr. Babar Phillip MD [facility] Location: [facility] [place] Report of Operation Date of Procedure: 05/03/23 [...] MD; Dr. Steve Tirado MD Signed Normal [facility] Spine 1 View Any Levelon Spine 1 View Any Level [facility] Imaging Services [address] [place] [address] Spine 1 View Any Level MR#: [id number] Acct: [id number] Name: DARREN REINOSO Rep #: [id number] : 1980 F 43 From: Kong dailey MD PCP: Dr. Babar Phillip MD [facility]: [facility] Study: Spine 1 View Any Level Date of Exam: 05/03/23 Exam# [id number] Ordering Dr: Steve Tirado MD 2:[id number] PROCEDURE: Caudal epidural steroid injection. DATE OF EXAMINATION: May 03, 2023. INDICATION: Female, 43 years old. Chronic low back pain. FLUOROSCOPY TIME (if supplied): (10 seconds) minutes/seconds. 12.41 mGy. One image was submitted. RAD/Spine 1 View Any Level IMPRESSION: Intraoperative fluoroscopic services provided for caudal epidural steroid injection. Electronically Signed: Kong Glez MD at 13:04 [facility] Reading Location ID and State: [facility] / [place] , Service support , CC: Dr. Babar Phillip MD; Dr. Steev Tirado MD Revenue Cycle Specialist: Signed Normal [facility] XR Chest PA and Lateralon IMPRESSION: No acute radiographic abnormality. Revenue Cycle Specialist: PSCB Transcribe Date/Time: Apr 21 2023 2:47P Dictated by : KAREL PALACIO MD This examination was interpreted and the report reviewed and electronically signed by: KAREL PALACIO MD on Apr 21 2023 2:47PM [facility] DIVISION OF RADIOLOGY * * *Final Report* [...] Unremarkable. DIVISION OF RADIOLOGY Provider, Latisha felix [facility] - 04/21/2023 * * *Final Report* * [...] Unremarkable. IMPRESSION IMPRESSION: No acute radiographic abnormality. Revenue Cycle Specialist: PSCB Transcribe Date/Time: Apr 21 2023 2:47P Dictated by : KAREL PALACIO MD This examination was interpreted and the report reviewed and electronically signed by: KAREL PALACIO MD on Apr 21 2023 2:47PM EST [facility] Radiology Study observation (narrative) [facility] XR Chest PA and LateralOrder ed By: Ccf Provider on 04-21-2023 [facility] Glucose Glucometer (BldC) [M ass/Vol]Ordered By: Steve Tirado on 02-15-2023 Glucose [Mass/Vol] 132 mg/dL 74-106 [facility] Comment on above: MANAGEMENT OF PATIEN T CARE PER NURSING PROTOCOL Glucose Glucometer (BldC) [M ass/Vol]Ordered By: Steve Tirado on 01-04-2023 Glucose [Mass/Vol] 111 mg/dL 74-106 [facility] Comment on above: MANAGEMENT OF PATIEN T CARE PER NURSING PROTOCOL HEMOGLOBIN A1C (POC)on 11-23 HbA1c (Bld) [Mass fraction] 6.2 % 4.2 - 5.6 % [facility] CBC W Auto Differential pane l (Bld)on 08-24-2022 Basophils (Bld) [#/Vol] 0.03 10*3/uL <0.11 k/uL [facility] Basophils/100 WBC (Bld) 0.3 % [facility] Differential cell count method Nom (Bld) Auto [facility] Eosinophils (Bld) [#/Vol] 0.09 10*3/uL <0.46 k/uL [facility] Eosinophils/100 WBC (Bld) 0.8 % [facility] Erythrocyte distribution width (RBC) [Ratio] 13.9 % 11.5 - 15.0 % [facility] Hematocrit (Bld) [Volume fraction] 45.9 % 36.0 - 46.0 % [facility] Hemoglobin (Bld) [Mass/Vol] 13.8 g/dL 11.5 - 15.5 g/dL [facility] Immature granulocytes (Bld) [#/Vol] 0.05 10*3/uL <0.10 k/uL [facility] Immature granulocytes/100 WBC (Bld) 0.5 % [facility] Lymphocytes (Bld) [#/Vol] 2.69 10*3/uL 1.00 - 4.00 k/uL [facility] Lymphocytes/100 WBC (Bld) 25.1 % [facility] MCH (RBC) [Entitic mass] 28.9 pg 26.0 - 34.0 pg [facility] MCHC (RBC) [Mass/Vol] 30.1 g/dL Low 30.5 - 36.0 g/dL [facility] MCV (RBC) [Entitic vol] 96.0 fL 80.0 - 100.0 fL [facility] Monocytes (Bld) [#/Vol] 0.67 10*3/uL <0.87 k/uL [facility] Monocytes/100 WBC (Bld) 6.3 % [facility] Neutrophils (Bld) [#/Vol] 7.17 10*3/uL 1.45 - 7.50 k/uL [facility] Neutrophils/100 WBC (Bld) 67.0 % [facility] Nucleated RBC (Bld) [#/Vol] <0.01 k/uL [facility] Nucleated RBC/100 WBC (Bld) [Ratio] 0.0 /100 WBC [facility] Platelet mean volume (Bld) [Entitic vol] 10.1 fL 9.0 - 12.7 fL [facility] Platelets (Bld) [#/Vol] 284 10*3/uL 150 - 400 k/uL [facility] RBC (Bld) [#/Vol] 4.78 10*6/uL 3.90 - 5.2 0 m/uL [facility] WBC (Bld) [#/Vol] 10.70 10*3/uL 3.70 - 11.00 k/uL [facility] XR Shoulder - left 3 Viewson 08-23-2022 IMPRESSION: Findings are suggestive of mild degenerative changes in the left shoulder. Revenue Cycle Specialist: PSCAyan Transcribe Date/Time: Aug 23 2022 4:12P Dictated by : DELIO CALDWELL MD This examination was interpreted and the report reviewed and electronically signed by: DELIO CALDWELL MD on Aug 23 2022 4:13PM [facility] DIVISION OF RADIOLOGY * * *Final Report* [...] soft tissue swelling. DIVISION OF RADIOLOGY Provider, [facility] - 08/23/2022 * * *Final Report* [...] mild degenerative changes in the left shoulder. Revenue Cycle Specialist: PSCB Transcribe Date/Time: Aug 23 2022 4:12P Dictated by : DELIO CALDWELL MD This examination was interpreted and the report reviewed and electronically signed by: DELIO CALDWELL MD on Aug 23 2022 4:13PM EST [facility] XR Shoulder - left 3 ViewsOr dered By: Ccf Provider on 08-23-2022 [facility] XR Shoulder - left 3 Viewson 08-20-2022 Radiology Study observation (narrative) [facility] BHCG (SERUM)on 06-30-2022 B-HCG (SERUM) Negative Normal NEGATIVE [facility] Comment on above: Order Comment: Comme nt: AMBULATORY POD 17 Result Comment: Serum Test is more Sensitive than a Urine Test. Please Note Threshold Values: SERUM - 10mlU/mL URINE - 20mlU/mL Performed By: #### L 200.4092 #### [facility] [address] [place] [address] HCG.beta subunit Qnon 2022 Beta hCG, Serum Negative NEGATIVE [facility] OPERATIVE REPORTon OPERATIVE REPORT [facility] [place] [address] HEALTH INFORMATION MANAGEMENT OPERATIVE REPORT Patient: ARLETHARAVIND DE LEON M.D. [id number] [age] F Status: [facility] DATE OF SURGERY: 06/30/2022 SURGEON: [...] colonoscopy in 10 years. Report#: Dict ID [id number] / Int ID [id number] 07/01/22 0808 _ ARAVIND ROQUE M.D. cc: ARAVIND ROQUE M.D. << Signature on File>> Reported By: ARAVIND ROQUE M.D. Signed By: ARAVIND ROQUE M.D. Tests performed at: [address] [address] Normal [facility] OPERATIVE REPORT [place] [address] HEALTH INFORMATION MANAGEMENT OPERATIVE REPORT Patient: DARREN REINOSO ARAVIND ROQUE M.D. [id number] F [facility] DATE OF SURGERY: 06/30/2022 SURGEON: Aravind [...] FINDINGS: Normal upper endoscopy. Report#: Dict ID [id number] / Int ID [id number] 07/01/22 0808 _ ARAVIND ROQUE M.D. cc: ARAVIND ROQUE M.D. << Signature on File>> Reported By: ARAVIND ROQUE M.D. Signed By: ARAVIND ROQUE M.D. Tests performed at: [address] [address] [facility] SURGICALon 06-30-2022 SURGICAL Duodenum - BX FINAL DIAGNOSIS: DUODENUM, BIOPSY: FRAGMENTS OF SMALL INTESTINAL MUCOSA, NO PATHOLOGIC DIAGNOSIS, SEE COMMENT. COMMENT: Villous architecture is preserved; no parasites are identified Dictated by: MEY KENNEDY M.D. MICROSCOPIC DESCRIPTION: SLIDE(S) EXAMINED. [facility] 07/02/2022 GROSS DESCRIPTION: Labeled duodenal biopsy. Received in formalin are two fragments of white to pink-newell soft tissues measuring 0.4 x 0.3 x 0.2 cm in aggregate. Specimen is submitted in toto in one cassette. [facility] 07/01/2022 CLINICAL DATA: PROCEDURE: EGD with biopsy, colonoscopy PRE-OP: Epigastric pain, rectal bleeding, diarrhea POST-OP: Normal EGD, normal colon HISTORY: N/A Signed *Electronically Signed* MEY KENNEDY M.D. 07/02/22 1148 Normal [facility] Comment on above: Performed By: #### P -S #### [facility] [address] [address] XR Knee - right 4 Viewson IMPRESSION: Osteoarthritis as described. Revenue Cycle Specialist: SARWAT Transcribe Date/Time: May 13 2022 1:20P Dictated by : EVITA ELLINGTON MD This examination was interpreted and the report reviewed and electronically signed by: EVITA ELLINGTON MD on May 13 2022 1:22PM [facility] DIVISION OF RADIOLOGY * * *Final Report* [...] osteophyte production. IMPRESSION IMPRESSION: Osteoarthritis as described. Revenue Cycle Specialist: PSYCHIATRICAyan Transcribe Date/Time: May 13 2022 1:20P Dictated by : EVITA ELLINGTON MD This examination was interpreted and the report reviewed and electronically signed by: EVITA ELLINGTON MD on May 13 2022 1:22PM EST [facility] Radiology Study observation (narrative) [facility] XR Knee - right 4 ViewsOrder ed By: Ccf Provider on 05-13-2022 [facility] UA DIP, URINE (POC)on 2021 BILIRUBIN UA (POCT) Negative Negative [facility] CLARITY UA (POCT) Clear [place] COLOR UA (POCT) Yellow [facility] GLUCOSE UA (POCT) Negative Negative mg/dL [facility] HEMOGLOBIN/BLOOD UA (POCT) Negative Negative [facility] KETONE UA (POCT) Negative Negative mg/dL [facility] LEUKOCYTES UA (POCT) Negative Negative [facility] NITRITE UA (POCT) Negative Negative [place] PH UA (POCT) 5.5 4.5 - 8.0 [facility] Protein Ql (U) Negative Negative mg/dL [facility] SPECIFIC GRAVITY UA (POCT) 1.020 1.005 - 1.030 [facility] UROBILINOGEN UA (POCT) 0.2 E.U./dL Normal E.U./dL [facility] BILIRUBIN UA (POCT) Negative Negative [facility] CLARITY UA (POCT) Clear [place] COLOR UA (POCT) Yellow [facility] GLUCOSE UA (POCT) Negative Negative mg/dL [facility] HEMOGLOBIN/BLOOD UA (POCT) Negative Negative [facility] KETONE UA (POCT) Negative Negative mg/dL [facility] LEUKOCYTES UA (POCT) Negative Negative [facility] NITRITE UA (POCT) Negative Negative [place] PH UA (POCT) 5.5 4.5 - 8.0 [facility] Protein Ql (U) Negative Negative mg/dL [facility] SPECIFIC GRAVITY UA (POCT) >=1.030 1.005 - 1.030 [facility] UROBILINOGEN UA (POCT) 0.2 E.U./dL Normal E.U./dL [facility] No Panel Informationon 03-30 [facility] XR Lumbar spine AP and Later ephraim 02-09-2022 IMPRESSION: Lumbar s pine degenerative changes as described above. Revenue Cycle Specialist: SARWAT Transcribe Date/Time: Feb 09 2022 4:00P Dictated by : DELIO CALDWELL MD This examination was interpreted and the report reviewed and electronically signed by: DELIO CALDWELL MD on Feb 09 2022 4:02PM [facility] DIVISION OF RADIOLOGY * * *Final Report* [...] spine are presented. FINDINGS: There are five [id number] lumbar vertebrae. No fracture or subluxations are noted. Right-sided curvature seen on AP view. There appears be L2-3 and L3-4 mild disc space narrowing. There is mild osteophyte formation. Others: There are 2 surgical evaluation clips in the pelvis. DIVISION OF RADIOLOGY Provider, Latisha Viramontes - 02/09/2022 * * *Final Report* [...] spine are presented. FINDINGS: There are five [id number] lumbar vertebrae. No fracture or subluxations are noted. Right-sided curvature seen on AP view. There appears be L2-3 and L3-4 mild disc space narrowing. There is mild osteophyte formation. Others: There are 2 surgical evaluation clips in the pelvis. IMPRESSION IMPRESSION: Lumbar spine degenerative changes as described above. Revenue Cycle Specialist: SARWAT Transcribe Date/Time: Feb 09 2022 4:00P Dictated by : DELIO CALDWELL MD This examination was interpreted and the report reviewed and electronically signed by: DELIO CALDWELL MD on Feb 09 2022 4:02PM EST [facility] Radiology Study observation (narrative) [facility] XR Lumbar spine AP and Later alOrdered By: Ccf Provider on 02-09-2022 [facility] LIPID PANEL BASICon 10-10-19 22 Cholesterol [Mass/Vol] 163 mg/dL <200 mg/dL [facility] Cholesterol in HDL [Mass/Vol] 49 mg/dL >39 mg/dL [facility] Cholesterol in LDL [Mass/Vol] 68 mg/dL <100 mg/dL [facility] Cholesterol in LDL/Cholesterol in HDL [Mass ratio] 1.39 {ratio} <2.54 [facility] Cholesterol in VLDL [Mass/Vol] 46 mg/dL High <30 mg/dL [facility] Cholesterol non HDL [Mass/Vol] 114 mg/dL <130 mg/dL [facility] Cholesterol.total/Ch olesterol in HDL [Mass ratio] 3.33 {ratio} <5.10 [facility] Fasting Time 3 hrs [facility] Triglyceride [Mass/Vol] 228 mg/dL High <150 mg/dL [facility] ANES POSTPROC EVALon 022 ANES POSTPROC EVAL HNO ID: [id number] Author: Jean Garcia MD Service: Anesthesiology Author Type: Physician Type: Anesthesia Postprocedure Evaluation Filed: 07/23/2021 1:48 PM Note Text: POST ANESTHESIA EVALUATION NOTE : 1980 Procedure Summary Date: 07/23/21 Room / Location: OR OR02 / OR OR Anesthesia Start: 1128 Anesthesia Stop: 1220 [...] July 23, 2021 TIME: 1:48 PM CSN: [id number] [facility] ANES PRE-OPon 07-23-2021 ANES PRE-OP HNO ID: [id number] Author: Jean Garcia MD Service: Anesthesiology Author Type: Physician Type: Anesthesia Preprocedure Evaluation Filed: 07/23/2021 10:21 AM Note Text: ANESTHESIOLOGY DAY OF SURGERY NOTE : 1980 Procedure Information Date/Time: 07/23/21 1129 Procedure: RELEASE TRIGGER THUMB AND RIGHT MIDDLE FINGER (Right Finger middle) Location: OR OR02 / OR OR Surgeons: Duran Blunt MD Estimated body [...] July 23, 2021 TIME: 10:20 AM CSN: [id number] [facility] OPERATIVE NOon 07-23-2021 OPERATIVE NO HNO ID: [id number] Author: Duran Blunt MD Service: Orthopaedic Surgery Author Type: Physician Type: Operative Report Filed: 07/23/2021 12:34 PM Note Text: OPERATIVE/PROCEDURE REPORT LOG ID: [id number] Surgery/Procedure Date: 07/23/2021 Incision/Procedure Start Time: 11:50 AM Incision Close/Procedure End Time: 12:12 PM Surgeon(s)/Proceduralist(s) and [employer] Consultant(s): Surgeon(s) and Role: * Duran Blunt MD - Primary Nurse Practitioner: Ninoska Ortiz APRN.INSTRUMENT REPAIRER HELPER Procedure(s): right thumb and middle trigger releases. [...] 23, 2021 TIME: 12:32 PM PAGER/CONTACT #: [facility] XR Chest PA and Lateralon IMPRESSION: Slight prominence of the pulmonary markings. Revenue Cycle Specialist: SARWAT Transcribe Date/Time: Apr 24 2021 12:05P Dictated by : DELIO CALDWELL MD This examination was interpreted and the report reviewed and electronically signed by: DELIO CALDWELL MD on Apr 24 2021 12:06PM [facility] DIVISION OF RADIOLOGY * * *Final Report* [...] in the spine. DIVISION OF RADIOLOGY Provider, [facility] - 04/24/2021 * * *Final Report* [...] IMPRESSION: Slight prominence of the pulmonary markings. Revenue Cycle Specialist: SARWAT Transcribe Date/Time: Apr 24 2021 12:05P Dictated by : DELIO CALDWELL MD This examination was interpreted and the report reviewed and electronically signed by: DELIO CALDWELL MD on Apr 24 2021 12:06PM EST [facility] Radiology Study observation (narrative) [facility] XR Chest PA and LateralOrder ed By: Ccf Provider on 04-24-2021 [facility] XR Chest PA and Lateralon IMPRESSION: No acute radiographic abnormality. Revenue Cycle Specialist: SARWAT Transcribe Date/Time: Mar 12 2021 2:31P [...] soft tissues: Unremarkable. DIVISION OF RADIOLOGY Provider, [facility] - 03/12/2021 * * *Final Report* [...] Unremarkable. IMPRESSION IMPRESSION: No acute radiographic abnormality. Revenue Cycle Specialist: PSCB Transcribe Date/Time: Mar 12 2021 2:31P Dictated by : KAREL PALACIO MD This examination was interpreted and the report reviewed and electronically signed by: KAREL PALACIO MD on Mar 12 2021 2:32PM EST [facility] Radiology Study observation (narrative) [facility] XR Chest PA and LateralOrder ed By: Ccf Provider on 03-12-2021 [facility] XR Chest PA and Lateralon IMPRESSION: No acute radiographic abnormality. Revenue Cycle Specialist: SARWAT Transcribe Date/Time: Jan 24 2021 4:10P Dictated by : KAREL PALACIO MD This examination was interpreted and the report reviewed and electronically signed by: KAREL PALACIO MD on Jan 24 2021 4:11PM [facility] DIVISION OF RADIOLOGY * * *Final Report* [...] soft tissues: Unremarkable. DIVISION OF RADIOLOGY Provider, [facility] - 01/24/2021 * * *Final Report* [...] Unremarkable. IMPRESSION IMPRESSION: No acute radiographic abnormality. Revenue Cycle Specialist: SARWAT Transcribe Date/Time: Jan 24 2021 4:10P Dictated by : KAREL PALACIO MD This examination was interpreted and the report reviewed and electronically signed by: KAREL PALACIO MD on Jan 24 2021 4:11PM [facility] Radiology Study observation (narrative) [facility] XR Chest PA and LateralOrder ed By: Ccf Provider on 01-24-2021 [facility] XR Chest PA and Lateralon IMPRESSION: Stable exam without acute findings. Revenue Cycle Specialist: SARWAT Transcribe Date/Time: Nov 12 2020 11:27A Dictated by : DELIO CALDWELL MD This examination was interpreted and the report reviewed and electronically signed by: DELIO CALDWELL MD on Nov 12 2020 11:28AM [facility] DIVISION OF RADIOLOGY * * *Final Report* [...] in the spine. DIVISION OF RADIOLOGY Provider, [facility] - 11/12/2020 * * *Final Report* [...] IMPRESSION IMPRESSION: Stable exam without acute findings. Revenue Cycle Specialist: PSCB Transcribe Date/Time: Nov 12 2020 11:27A Dictated by : DELIO CALDWELL MD This examination was interpreted and the report reviewed and electronically signed by: DELIO CALDWELL MD on Nov 12 2020 11:28AM EST [facility] Radiology Study observation (narrative) [facility] XR Chest PA and LateralOrder ed By: Ccf Provider on 11-12-2020 [facility] Vital Signs Date Time Vital Sign Value Performing Clinician Facility 12-24-2024 14:35-0400 Body mass index (BMI) [Ratio] 57.74 kg/m2 Jazmyne Swank 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 PROCESS ENGINEER.INSTRUMENT REPAIRER HELPER Work Phone: [facility] 12-24-2024 14:35-0400 Body temperature 98.4 [degF] Jazmyne Swank 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 PROCESS ENGINEER.INSTRUMENT REPAIRER HELPER Work Phone: [facility] 12-24-2024 14:35-0400 Body weight 143.2 kg Jazmyne Swank 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 PROCESS ENGINEER.INSTRUMENT REPAIRER HELPER Work Phone: [facility] 12-24-2024 14:35-0400 Diastolic blood pressure 82 mm[Hg] Jazmyne Swank 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 PROCESS ENGINEER.INSTRUMENT REPAIRER HELPER Work Phone: [facility] 12-24-2024 14:35-0400 Heart rate 94 /min Jazmyne Swank 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 PROCESS ENGINEER.INSTRUMENT REPAIRER HELPER Work Phone: [facility] 12-24-2024 14:35-0400 Respiratory rate 18 /min Jazmyne Swank 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 PROCESS ENGINEER.INSTRUMENT REPAIRER HELPER Work Phone: [facility] 12-24-2024 14:35-0400 SaO2% (BldA) [Mass fraction] 97 % Jazmyne Swank 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 PROCESS ENGINEER.INSTRUMENT REPAIRER HELPER Work Phone: [facility] 12-24-2024 14:35-0400 Systolic blood pressure 130 mm[Hg] Jazmyne Swank 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 PROCESS ENGINEER.INSTRUMENT REPAIRER HELPER Work Phone: [facility] 11-20-2024 07:26-0400 Body mass index (BMI) [Ratio] 57.8 kg/m2 Caryn Lowery 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 PROCESS ENGINEER.INSTRUMENT REPAIRER HELPER Work Phone: [facility] 11-20-2024 07:26-0400 Body temperature 97 [degF] Caryn Older 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 PROCESS ENGINEER.INSTRUMENT REPAIRER HELPER Work Phone: [facility] 11-20-2024 07:26-0400 Body weight 143.34 kg Caryn Older 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 PROCESS ENGINEER.INSTRUMENT REPAIRER HELPER Work Phone: [facility] 11-20-2024 07:26-0400 Diastolic blood pressure 82 mm[Hg] Caryn Older 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 PROCESS ENGINEER.INSTRUMENT REPAIRER HELPER Work Phone: [facility] 11-20-2024 07:26-0400 Heart rate 87 /min Caryn Older 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 PROCESS ENGINEER.INSTRUMENT REPAIRER HELPER Work Phone: [facility] 11-20-2024 07:26-0400 Respiratory rate 16 /min Caryn Older 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 PROCESS ENGINEER.INSTRUMENT REPAIRER HELPER Work Phone: [facility] 11-20-2024 07:26-0400 SaO2% (BldA) [Mass fraction] 97 % Caryn Older 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 PROCESS ENGINEER.INSTRUMENT REPAIRER HELPER Work Phone: [facility] 11-20-2024 07:26-0400 Systolic blood pressure 122 mm[Hg] Caryn Older 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 PROCESS ENGINEER.INSTRUMENT REPAIRER HELPER Work Phone: [facility] 10-20-2024 11:22-0400 Body mass index (BMI) [Ratio] 58.53 kg/m2 Caryn Older 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 PROCESS ENGINEER.INSTRUMENT REPAIRER HELPER Work Phone: [facility] 10-20-2024 11:22-0400 Body weight 145.15 kg Caryn Older 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 PROCESS ENGINEER.INSTRUMENT REPAIRER HELPER Work Phone: [facility] 10-20-2024 11:22-0400 Diastolic blood pressure 78 mm[Hg] Caryn Older 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 PROCESS ENGINEER.INSTRUMENT REPAIRER HELPER Work Phone: [facility] 10-20-2024 11:22-0400 Heart rate 78 /min Caryn Older 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 PROCESS ENGINEER.INSTRUMENT REPAIRER HELPER Work Phone: [facility] 10-20-2024 11:22-0400 Respiratory rate 16 /min Caryn Older 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 PROCESS ENGINEER.INSTRUMENT REPAIRER HELPER Work Phone: [facility] 10-20-2024 11:22-0400 SaO2% (BldA) [Mass fraction] 97 % Caryn Older 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 PROCESS ENGINEER.INSTRUMENT REPAIRER HELPER Work Phone: [facility] 10-20-2024 11:22-0400 Systolic blood pressure 126 mm[Hg] Caryn Older 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 PROCESS ENGINEER.INSTRUMENT REPAIRER HELPER Work Phone: [facility] 10-17-2024 13:34-0400 Body mass index (BMI) [Ratio] 58.35 kg/m2 Charis Click 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 PROCESS ENGINEER.INSTRUMENT REPAIRER HELPER Work Phone: [facility] 10-17-2024 13:34-0400 Body weight 144.7 kg Charis Click 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 PROCESS ENGINEER.INSTRUMENT REPAIRER HELPER Work Phone: [facility] 10-17-2024 13:34-0400 Diastolic blood pressure 72 mm[Hg] Charis Click 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 PROCESS ENGINEER.INSTRUMENT REPAIRER HELPER Work Phone: [facility] 10-17-2024 13:34-0400 Heart rate 82 /min Charis Click 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 PROCESS ENGINEER.INSTRUMENT REPAIRER HELPER Work Phone: [facility] 10-17-2024 13:34-0400 Respiratory rate 17 /min Charis Click 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 PROCESS ENGINEER.INSTRUMENT REPAIRER HELPER Work Phone: [facility] 10-17-2024 13:34-0400 SaO2% (BldA) [Mass fraction] 96 % Charis Click 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 PROCESS ENGINEER.INSTRUMENT REPAIRER HELPER Work Phone: [facility] 10-17-2024 13:34-0400 Systolic blood pressure 122 mm[Hg] Charis Click 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 PROCESS ENGINEER.INSTRUMENT REPAIRER HELPER Work Phone: [facility] 10-11-2024 11:03-0400 Body mass index (BMI) [Ratio] 58.35 kg/m2 Caryn Older 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 PROCESS ENGINEER.INSTRUMENT REPAIRER HELPER Work Phone: [facility] 10-11-2024 11:03-0400 Body weight 144.7 kg Caryn Older 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 PROCESS ENGINEER.INSTRUMENT REPAIRER HELPER Work Phone: [facility] 10-11-2024 11:03-0400 Diastolic blood pressure 78 mm[Hg] Caryn Older 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 PROCESS ENGINEER.INSTRUMENT REPAIRER HELPER Work Phone: [facility] 10-11-2024 11:03-0400 Heart rate 78 /min Caryn Older 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 PROCESS ENGINEER.INSTRUMENT REPAIRER HELPER Work Phone: [facility] 10-11-2024 11:03-0400 Respiratory rate 16 /min Caryn Older 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 PROCESS ENGINEER.INSTRUMENT REPAIRER HELPER Work Phone: [facility] 10-11-2024 11:03-0400 SaO2% (BldA) [Mass fraction] 92 % Caryn Older 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 PROCESS ENGINEER.INSTRUMENT REPAIRER HELPER Work Phone: [facility] 10-11-2024 11:03-0400 Systolic blood pressure 128 mm[Hg] Caryn Older 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 PROCESS ENGINEER.INSTRUMENT REPAIRER HELPER Work Phone: [facility] 07-27-2024 13:02-0400 Body mass index (BMI) [Ratio] 57.25 kg/m2 Caryn Older 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 PROCESS ENGINEER.INSTRUMENT REPAIRER HELPER Work Phone: [facility] 07-27-2024 13:02-0400 Body weight 141.98 kg Caryn Older 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 PROCESS ENGINEER.INSTRUMENT REPAIRER HELPER Work Phone: [facility] 07-27-2024 13:02-0400 Diastolic blood pressure 78 mm[Hg] Caryn Older 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 PROCESS ENGINEER.INSTRUMENT REPAIRER HELPER Work Phone: [facility] 07-27-2024 13:02-0400 Heart rate 90 /min Caryn Older 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 PROCESS ENGINEER.INSTRUMENT REPAIRER HELPER Work Phone: [facility] 07-27-2024 13:02-0400 Respiratory rate 16 /min Caryn Older 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 PROCESS ENGINEER.INSTRUMENT REPAIRER HELPER Work Phone: [facility] 07-27-2024 13:02-0400 SaO2% (BldA) [Mass fraction] 97 % Caryn Older 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 PROCESS ENGINEER.INSTRUMENT REPAIRER HELPER Work Phone: [facility] 07-27-2024 13:02-0400 Systolic blood pressure 122 mm[Hg] Caryn Older 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 PROCESS ENGINEER.INSTRUMENT REPAIRER HELPER Work Phone: [facility] 07-13-2024 16:09-0500 Body mass index (BMI) [Ratio] 58.06 kg/m2 Janie Vinson 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 PROCESS ENGINEER.INSTRUMENT REPAIRER HELPER Work Phone: [facility] 07-13-2024 16:09-0500 Body temperature 98.49 [degF] Janie Vinson APRN.INSTRUMENT REPAIRER HELPER Work Phone: [facility] 07-13-2024 16:09-0500 Body weight 144 kg Janie Vinson APRN.INSTRUMENT REPAIRER HELPER Work Phone: [facility] 07-13-2024 16:09-0500 Diastolic blood pressure 87 mm[Hg] Janie Vinson APRN.INSTRUMENT REPAIRER HELPER Work Phone: [facility] 07-13-2024 16:09-0500 Heart rate 88 /min Janie Vinson APRN.INSTRUMENT REPAIRER HELPER Work Phone: [facility] 07-13-2024 16:09-0500 Respiratory rate 22 /min Janie Vinson APRN.INSTRUMENT REPAIRER HELPER Work Phone: [facility] 07-13-2024 16:09-0500 SaO2% (BldA) [Mass fraction] 97 % Janie Vinson APRN.INSTRUMENT REPAIRER HELPER Work Phone: [facility] 07-13-2024 16:09-0500 Systolic blood pressure 146 mm[Hg] Janie Vinson APRN.INSTRUMENT REPAIRER HELPER Work Phone: [facility] 06-30-2024 13:03-0500 Body mass index (BMI) [Ratio] 57.61 kg/m2 Caryn Older 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 PROCESS ENGINEER.INSTRUMENT REPAIRER HELPER Work Phone: [facility] 06-30-2024 13:03-0500 Body weight 142.88 kg Caryn Older 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 PROCESS ENGINEER.INSTRUMENT REPAIRER HELPER Work Phone: [facility] 06-30-2024 13:03-0500 Diastolic blood pressure 72 mm[Hg] Caryn Older 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 PROCESS ENGINEER.INSTRUMENT REPAIRER HELPER Work Phone: [facility] 06-30-2024 13:03-0500 Heart rate 82 /min Caryn Older 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 PROCESS ENGINEER.INSTRUMENT REPAIRER HELPER Work Phone: [facility] 06-30-2024 13:03-0500 Respiratory rate 16 /min Caryn Older 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 PROCESS ENGINEER.INSTRUMENT REPAIRER HELPER Work Phone: [facility] 06-30-2024 13:03-0500 SaO2% (BldA) [Mass fraction] 99 % Caryn Older 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 PROCESS ENGINEER.INSTRUMENT REPAIRER HELPER Work Phone: [facility] 06-30-2024 13:03-0500 Systolic blood pressure 128 mm[Hg] Caryn Older 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 PROCESS ENGINEER.INSTRUMENT REPAIRER HELPER Work Phone: [facility] 06-16-2024 13:19-0500 Body height 157.5 cm Elle Boone MD Work Phone: [facility] 06-16-2024 13:19-0500 Body mass index (BMI) [Ratio] 57.43 kg/m2 Elle Boone MD Work Phone: [facility] 06-16-2024 13:19-0500 Body weight 142.43 kg Elle Boone MD Work Phone: [facility] 06-16-2024 13:19-0500 Diastolic blood pressure 90 mm[Hg] Elle Boone MD Work Phone: [facility] 06-16-2024 13:19-0500 Heart rate 82 /min Elle Boone MD Work Phone: [facility] 06-16-2024 13:19-0500 Respiratory rate 14 /min Elle Boone MD Work Phone: [facility] 06-16-2024 13:19-0500 SaO2% (BldA) [Mass fraction] 98 % Elle Boone MD Work Phone: [facility] 06-16-2024 13:19-0500 Systolic blood pressure 146 mm[Hg] Elle Boone MD Work Phone: [facility] 06-16-2024 13:05-0500 Body height 157.5 cm Pulm Wstr Work Phone: [facility] 06-16-2024 13:05-0500 Body mass index (BMI) [Ratio] 57.43 kg/m2 Pulm Wstr Work Phone: [facility] 06-16-2024 13:05-0500 Body weight 142.43 kg Pulm Wstr Work Phone: [facility] 06-16-2024 13:05-0500 Heart rate 83 /min Pulm Wstr Work Phone: [facility] 06-16-2024 13:05-0500 Respiratory rate 14 /min Pulm Wstr Work Phone: [facility] 06-16-2024 13:05-0500 SaO2% (BldA) [Mass fraction] 98 % Pulm Wstr Work Phone: [facility] 04-28-2024 11:20-0500 Body mass index (BMI) [Ratio] 57.04 kg/m2 Caryn Older 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 PROCESS ENGINEER.INSTRUMENT REPAIRER HELPER Work Phone: [facility] 04-28-2024 11:20-0500 Body weight 146.06 kg Caryn Older 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 PROCESS ENGINEER.INSTRUMENT REPAIRER HELPER Work Phone: [facility] 04-28-2024 11:20-0500 Diastolic blood pressure 80 mm[Hg] Caryn Older 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 PROCESS ENGINEER.INSTRUMENT REPAIRER HELPER Work Phone: [facility] 04-28-2024 11:20-0500 Heart rate 88 /min Caryn Older 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 PROCESS ENGINEER.INSTRUMENT REPAIRER HELPER Work Phone: [facility] 04-28-2024 11:20-0500 Respiratory rate 16 /min Caryn Older 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 PROCESS ENGINEER.INSTRUMENT REPAIRER HELPER Work Phone: [facility] 04-28-2024 11:20-0500 SaO2% (BldA) [Mass fraction] 97 % Caryn Older 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 PROCESS ENGINEER.INSTRUMENT REPAIRER HELPER Work Phone: [facility] 04-28-2024 11:20-0500 Systolic blood pressure 128 mm[Hg] Caryn Older 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 PROCESS ENGINEER.INSTRUMENT REPAIRER HELPER Work Phone: [facility] 04-02-2024 13:33-0500 Body mass index (BMI) [Ratio] 57.39 kg/m2 Victoria Nguyen 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 PROCESS ENGINEER.INSTRUMENT REPAIRER HELPER Work Phone: [facility] 04-02-2024 13:33-0500 Body temperature 97.5 [degF] Victoria Praisler-Wood 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 PROCESS ENGINEER.INSTRUMENT REPAIRER HELPER Work Phone: [facility] 04-02-2024 13:33-0500 Body weight 146.97 kg Victoria Praisler-Wood 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 PROCESS ENGINEER.INSTRUMENT REPAIRER HELPER Work Phone: [facility] 04-02-2024 13:33-0500 Diastolic blood pressure 87 mm[Hg] Victoria Praisler-Wood 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 PROCESS ENGINEER.INSTRUMENT REPAIRER HELPER Work Phone: [facility] 04-02-2024 13:33-0500 Heart rate 93 /min Victoria Praisler-Wood 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 PROCESS ENGINEER.INSTRUMENT REPAIRER HELPER Work Phone: [facility] 04-02-2024 13:33-0500 Respiratory rate 16 /min Victoria Praisler-Wood 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 PROCESS ENGINEER.[facility] Work Phone: [facility] 04-02-2024 13:33-0500 Systolic blood pressure 146 mm[Hg] Victoria Praisler-Wood 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 PROCESS ENGINEER.INSTRUMENT REPAIRER HELPER Work Phone: [facility] 04-01-2024 15:33-0500 Body mass index (BMI) [Ratio] 57.52 kg/m2 Victoria Praisler-Wood 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 PROCESS ENGINEER.INSTRUMENT REPAIRER HELPER Work Phone: [facility] 04-01-2024 15:33-0500 Body temperature 98.4 [degF] Victoria Praisler-Wood 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 PROCESS ENGINEER.INSTRUMENT REPAIRER HELPER Work Phone: [facility] 04-01-2024 15:33-0500 Body weight 147.3 kg Victoria Praisler-Wood 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 PROCESS ENGINEER.INSTRUMENT REPAIRER HELPER Work Phone: [facility] 04-01-2024 15:33-0500 Diastolic blood pressure 86 mm[Hg] Victoria Praisler-Wood 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 PROCESS ENGINEER.INSTRUMENT REPAIRER HELPER Work Phone: [facility] 04-01-2024 15:33-0500 Heart rate 88 /min Victoria Praisler-Wood 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 PROCESS ENGINEER.INSTRUMENT REPAIRER HELPER Work Phone: [facility] 04-01-2024 15:33-0500 Respiratory rate 20 /min Victoria Praisler-Wood 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 PROCESS ENGINEER.INSTRUMENT REPAIRER HELPER Work Phone: [facility] 04-01-2024 15:33-0500 SaO2% (BldA) [Mass fraction] 97 % Victoria Nguyen APRN.INSTRUMENT REPAIRER HELPER Work Phone: [facility] 04-01-2024 15:33-0500 Systolic blood pressure 128 mm[Hg] Victoria Nguyen 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 PROCESS ENGINEER.INSTRUMENT REPAIRER HELPER Work Phone: [facility] 03-31-2024 14:25-0500 Body mass index (BMI) [Ratio] 57.49 kg/m2 Janie Vinson APRN.INSTRUMENT REPAIRER HELPER Work Phone: [facility] 03-31-2024 14:25-0500 Body temperature 97.59 [degF] Janie Vinson APRN.INSTRUMENT REPAIRER HELPER Work Phone: [facility] 03-31-2024 14:25-0500 Body weight 147.2 kg Janie Vinson APRN.INSTRUMENT REPAIRER HELPER Work Phone: [facility] 03-31-2024 14:25-0500 Diastolic blood pressure 80 mm[Hg] Janie Vinson APRN.INSTRUMENT REPAIRER HELPER Work Phone: [facility] 03-31-2024 14:25-0500 Heart rate 79 /min Janie Vinson APRN.INSTRUMENT REPAIRER HELPER Work Phone: [facility] 03-31-2024 14:25-0500 Respiratory rate 22 /min Janie Vinson APRN.INSTRUMENT REPAIRER HELPER Work Phone: [facility] 03-31-2024 14:25-0500 SaO2% (BldA) [Mass fraction] 93 % Janie Vinson APRN.INSTRUMENT REPAIRER HELPER Work Phone: [facility] 03-31-2024 14:25-0500 Systolic blood pressure 138 mm[Hg] Janie Vinson APRN.INSTRUMENT REPAIRER HELPER Work Phone: [facility] 03-17-2024 08:12-0400 Body mass index (BMI) [Ratio] 57.22 kg/m2 Caryn Lowery APRN.INSTRUMENT REPAIRER HELPER Work Phone: [facility] 03-17-2024 08:12-0400 Body weight 146.51 kg Caryn Older 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 PROCESS ENGINEER.INSTRUMENT REPAIRER HELPER Work Phone: [facility] 03-17-2024 08:12-0400 Diastolic blood pressure 76 mm[Hg] Caryn Older 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 PROCESS ENGINEER.INSTRUMENT REPAIRER HELPER Work Phone: [facility] 03-17-2024 08:12-0400 Heart rate 95 /min Caryn Older 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 PROCESS ENGINEER.INSTRUMENT REPAIRER HELPER Work Phone: [facility] 03-17-2024 08:12-0400 Respiratory rate 16 /min Caryn Older 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 PROCESS ENGINEER.INSTRUMENT REPAIRER HELPER Work Phone: [facility] 03-17-2024 08:12-0400 SaO2% (BldA) [Mass fraction] 95 % Caryn Older 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 PROCESS ENGINEER.INSTRUMENT REPAIRER HELPER Work Phone: [facility] 03-17-2024 08:12-0400 Systolic blood pressure 130 mm[Hg] Caryn Older 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 PROCESS ENGINEER.INSTRUMENT REPAIRER HELPER Work Phone: [facility] 02-17-2024 13:39-0400 Body mass index (BMI) [Ratio] 57.39 kg/m2 Caryn Older 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 PROCESS ENGINEER.INSTRUMENT REPAIRER HELPER Work Phone: [facility] 02-17-2024 13:39-0400 Body weight 146.97 kg Caryn Older 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 PROCESS ENGINEER.INSTRUMENT REPAIRER HELPER Work Phone: [facility] 02-17-2024 13:39-0400 Diastolic blood pressure 80 mm[Hg] Caryn Older 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 PROCESS ENGINEER.INSTRUMENT REPAIRER HELPER Work Phone: [facility] 02-17-2024 13:39-0400 Heart rate 88 /min Caryn Older 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 PROCESS ENGINEER.INSTRUMENT REPAIRER HELPER Work Phone: [facility] 02-17-2024 13:39-0400 Respiratory rate 16 /min Caryn Older 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 PROCESS ENGINEER.INSTRUMENT REPAIRER HELPER Work Phone: [facility] 02-17-2024 13:39-0400 SaO2% (BldA) [Mass fraction] 97 % Caryn Older 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 PROCESS ENGINEER.INSTRUMENT REPAIRER HELPER Work Phone: [facility] 02-17-2024 13:39-0400 Systolic blood pressure 128 mm[Hg] Caryn Older 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 PROCESS ENGINEER.INSTRUMENT REPAIRER HELPER Work Phone: [facility] 02-02-2024 12:15-0400 Body mass index (BMI) [Ratio] 57.04 kg/m2 Caryn Older 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 PROCESS ENGINEER.INSTRUMENT REPAIRER HELPER Work Phone: [facility] 02-02-2024 12:15-0400 Body temperature 97.59 [degF] Caryn Older 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 PROCESS ENGINEER.INSTRUMENT REPAIRER HELPER Work Phone: [facility] 02-02-2024 12:15-0400 Body weight 146.06 kg Caryn Older 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 PROCESS ENGINEER.INSTRUMENT REPAIRER HELPER Work Phone: [facility] 02-02-2024 12:15-0400 Diastolic blood pressure 78 mm[Hg] Caryn Older 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 PROCESS ENGINEER.INSTRUMENT REPAIRER HELPER Work Phone: [facility] 02-02-2024 12:15-0400 Heart rate 74 /min Caryn Older 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 PROCESS ENGINEER.INSTRUMENT REPAIRER HELPER Work Phone: [facility] 02-02-2024 12:15-0400 Respiratory rate 24 /min Caryn Older 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 PROCESS ENGINEER.INSTRUMENT REPAIRER HELPER Work Phone: [facility] 02-02-2024 12:15-0400 SaO2% (BldA) [Mass fraction] 95 % Caryn Older 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 PROCESS ENGINEER.INSTRUMENT REPAIRER HELPER Work Phone: [facility] 02-02-2024 12:15-0400 Systolic blood pressure 126 mm[Hg] Caryn Older 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 PROCESS ENGINEER.INSTRUMENT REPAIRER HELPER Work Phone: [facility] 01-21-2024 10:58-0400 Body mass index (BMI) [Ratio] 57.1 kg/m2 Caryn Older 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 PROCESS ENGINEER.INSTRUMENT REPAIRER HELPER Work Phone: [facility] 01-21-2024 10:58-0400 Body temperature 97.9 [degF] Caryn Older 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 PROCESS ENGINEER.INSTRUMENT REPAIRER HELPER Work Phone: [facility] 01-21-2024 10:58-0400 Body weight 146.2 kg Caryn Older 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 PROCESS ENGINEER.INSTRUMENT REPAIRER HELPER Work Phone: [facility] 01-21-2024 10:58-0400 Diastolic blood pressure 84 mm[Hg] Caryn Older 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 PROCESS ENGINEER.INSTRUMENT REPAIRER HELPER Work Phone: [facility] 01-21-2024 10:58-0400 Heart rate 102 /min Caryn Older 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 PROCESS ENGINEER.INSTRUMENT REPAIRER HELPER Work Phone: [facility] 01-21-2024 10:58-0400 Respiratory rate 16 /min Caryn Older 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 PROCESS ENGINEER.INSTRUMENT REPAIRER HELPER Work Phone: [facility] 01-21-2024 10:58-0400 SaO2% (BldA) [Mass fraction] 92 % Caryn Older 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 PROCESS ENGINEER.INSTRUMENT REPAIRER HELPER Work Phone: [facility] 01-21-2024 10:58-0400 Systolic blood pressure 136 mm[Hg] Caryn Older 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 PROCESS ENGINEER.INSTRUMENT REPAIRER HELPER Work Phone: [facility] 01-13-2024 11:13-0400 Body mass index (BMI) [Ratio] 56.15 kg/m2 Caryn Older 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 PROCESS ENGINEER.INSTRUMENT REPAIRER HELPER Work Phone: [facility] 01-13-2024 11:13-0400 Body weight 143.79 kg Caryn Older 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 PROCESS ENGINEER.INSTRUMENT REPAIRER HELPER Work Phone: [facility] 01-13-2024 11:13-0400 Diastolic blood pressure 88 mm[Hg] Caryn Older 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 PROCESS ENGINEER.INSTRUMENT REPAIRER HELPER Work Phone: [facility] 01-13-2024 11:13-0400 Heart rate 92 /min Caryn Older 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 PROCESS ENGINEER.INSTRUMENT REPAIRER HELPER Work Phone: [facility] 01-13-2024 11:13-0400 Respiratory rate 16 /min Caryn Older 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 PROCESS ENGINEER.INSTRUMENT REPAIRER HELPER Work Phone: [facility] 01-13-2024 11:13-0400 SaO2% (BldA) [Mass fraction] 93 % Caryn Older 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 PROCESS ENGINEER.INSTRUMENT REPAIRER HELPER Work Phone: [facility] 01-13-2024 11:13-0400 Systolic blood pressure 142 mm[Hg] Caryn Older 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 PROCESS ENGINEER.INSTRUMENT REPAIRER HELPER Work Phone: [facility] 01-04-2024 19:01-0400 Diastolic Blood Pressure Non-Invasive 77 mm[Hg] CHELSIE MORALES MD [facility] 01-04-2024 19:01-0400 Heart rate 88 /min CHELSIE MORALES MD [facility] 01-04-2024 19:01-0400 Respiratory rate 20 /min CHELSIE MORALES MD [facility] 01-04-2024 19:01-0400 Systolic Blood Pressure Non-Invasive 132 mm[Hg] CHELSIE MORALES MD [facility] 01-04-2024 17:39-0400 Diastolic Blood Pressure Non-Invasive 89 mm[Hg] CHELSIE MORALES MD [facility] 01-04-2024 17:39-0400 Heart rate 88 /min CHELSIE MORALES MD [facility] 01-04-2024 17:39-0400 Systolic Blood Pressure Non-Invasive 153 mm[Hg] CHELSIE MORALES MD [facility] 01-04-2024 16:04-0400 Body temperature 97.34 [degF] CHELSIE MORALES MD [facility] 01-04-2024 16:04-0400 Body weight 143.7 kg CHELSIE MORALES MD [facility] 01-04-2024 16:04-0400 Diastolic Blood Pressure Non-Invasive 95 mm[Hg] CHELSIE MORALES MD [facility] 01-04-2024 16:04-0400 Heart rate 91 /min CHELSIE MORALES MD [facility] 01-04-2024 16:04-0400 Respiratory rate 20 /min CHELSIE MORALES MD [facility] 01-04-2024 16:04-0400 Systolic Blood Pressure Non-Invasive 152 mm[Hg] CHELSIE MORALES MD [facility] 01-03-2024 13:00-0400 Body mass index (BMI) [Ratio] 55.98 kg/m2 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 PROCESS ENGINEER.INSTRUMENT REPAIRER HELPER Work Phone: [facility] 01-03-2024 13:00-0400 Body weight 143.34 kg 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 PROCESS ENGINEER.INSTRUMENT REPAIRER HELPER Work Phone: [facility] 01-03-2024 13:00-0400 Diastolic blood pressure 80 mm[Hg] 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 PROCESS ENGINEER.INSTRUMENT REPAIRER HELPER Work Phone: [facility] 01-03-2024 13:00-0400 Heart rate 80 /min 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 PROCESS ENGINEER.INSTRUMENT REPAIRER HELPER Work Phone: [facility] 01-03-2024 13:00-0400 Respiratory rate 16 /min 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 PROCESS ENGINEER.INSTRUMENT REPAIRER HELPER Work Phone: [facility] 01-03-2024 13:00-0400 SaO2% (BldA) [Mass fraction] 96 % 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 PROCESS ENGINEER.INSTRUMENT REPAIRER HELPER Work Phone: [facility] 01-03-2024 13:00-0400 Systolic blood pressure 132 mm[Hg] 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 PROCESS ENGINEER.INSTRUMENT REPAIRER HELPER Work Phone: [facility] 12-06-2023 14:58-0400 Body mass index (BMI) [Ratio] 56.04 kg/m2 Steve Ramirez 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 PROCESS ENGINEER.INSTRUMENT REPAIRER HELPER Work Phone: [facility] 12-06-2023 14:58-0400 Body temperature 97.81 [degF] Steve Ramirez 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 PROCESS ENGINEER.INSTRUMENT REPAIRER HELPER Work Phone: [facility] 12-06-2023 14:58-0400 Body weight 143.5 kg [facility] 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 PROCESS ENGINEER.INSTRUMENT REPAIRER HELPER Work Phone: [facility] 12-06-2023 14:58-0400 Diastolic blood pressure 90 mm[Hg] [facility] 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 PROCESS ENGINEER.INSTRUMENT REPAIRER HELPER Work Phone: [facility] 12-06-2023 14:58-0400 Heart rate 93 /min [facility] 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 PROCESS ENGINEER.INSTRUMENT REPAIRER HELPER Work Phone: [facility] 12-06-2023 14:58-0400 Respiratory rate 20 /min [facility] 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 PROCESS ENGINEER.INSTRUMENT REPAIRER HELPER Work Phone: [facility] 12-06-2023 14:58-0400 SaO2% (BldA) [Mass fraction] 96 % [facility] 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 PROCESS ENGINEER.INSTRUMENT REPAIRER HELPER Work Phone: [facility] 12-06-2023 14:58-0400 Systolic blood pressure 148 mm[Hg] [facility] 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 PROCESS ENGINEER.INSTRUMENT REPAIRER HELPER Work Phone: [facility] 12-03-2023 13:35-0400 Body mass index (BMI) [Ratio] 55.98 kg/m2 Caryn Older 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 PROCESS ENGINEER.INSTRUMENT REPAIRER HELPER Work Phone: [facility] 12-03-2023 13:35-0400 Body weight 143.34 kg Caryn Older 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 PROCESS ENGINEER.INSTRUMENT REPAIRER HELPER Work Phone: [facility] 12-03-2023 13:35-0400 Diastolic blood pressure 76 mm[Hg] Caryn Older 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 PROCESS ENGINEER.INSTRUMENT REPAIRER HELPER Work Phone: [facility] 12-03-2023 13:35-0400 Heart rate 92 /min Caryn Older 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 PROCESS ENGINEER.INSTRUMENT REPAIRER HELPER Work Phone: [facility] 12-03-2023 13:35-0400 Respiratory rate 16 /min Caryn Older 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 PROCESS ENGINEER.INSTRUMENT REPAIRER HELPER Work Phone: [facility] 12-03-2023 13:35-0400 SaO2% (BldA) [Mass fraction] 97 % Caryn Older 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 PROCESS ENGINEER.INSTRUMENT REPAIRER HELPER Work Phone: [facility] 12-03-2023 13:35-0400 Systolic blood pressure 128 mm[Hg] Caryn Older 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 PROCESS ENGINEER.INSTRUMENT REPAIRER HELPER Work Phone: [facility] 11-15-2023 13:15-0400 Body mass index (BMI) [Ratio] 55.52 kg/m2 Caryn Older 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 PROCESS ENGINEER.INSTRUMENT REPAIRER HELPER Work Phone: [facility] 11-15-2023 13:15-0400 Body weight 142.16 kg Caryn Older 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 PROCESS ENGINEER.INSTRUMENT REPAIRER HELPER Work Phone: [facility] 11-15-2023 13:15-0400 Diastolic blood pressure 94 mm[Hg] Caryn Older 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 PROCESS ENGINEER.INSTRUMENT REPAIRER HELPER Work Phone: [facility] 11-15-2023 13:15-0400 Heart rate 98 /min Caryn Older 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 PROCESS ENGINEER.INSTRUMENT REPAIRER HELPER Work Phone: [facility] 11-15-2023 13:15-0400 SaO2% (BldA) [Mass fraction] 95 % Caryn Older 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 PROCESS ENGINEER.INSTRUMENT REPAIRER HELPER Work Phone: [facility] 11-15-2023 13:15-0400 Systolic blood pressure 142 mm[Hg] Caryn Older 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 PROCESS ENGINEER.INSTRUMENT REPAIRER HELPER Work Phone: [facility] 10-13-2023 11:00-0400 Body height 160 cm Caryn Older 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 PROCESS ENGINEER.INSTRUMENT REPAIRER HELPER Work Phone: [facility] 10-13-2023 11:00-0400 Body mass index (BMI) [Ratio] 55.8 kg/m2 Caryn Older 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 PROCESS ENGINEER.INSTRUMENT REPAIRER HELPER Work Phone: [facility] 10-13-2023 11:00-0400 Body weight 142.88 kg Caryn Older 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 PROCESS ENGINEER.INSTRUMENT REPAIRER HELPER Work Phone: [facility] 10-13-2023 11:00-0400 Diastolic blood pressure 72 mm[Hg] Caryn Older 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 PROCESS ENGINEER.INSTRUMENT REPAIRER HELPER Work Phone: [facility] 10-13-2023 11:00-0400 Heart rate 101 /min Caryn Older 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 PROCESS ENGINEER.INSTRUMENT REPAIRER HELPER Work Phone: [facility] 10-13-2023 11:00-0400 Respiratory rate 16 /min Caryn Older 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 PROCESS ENGINEER.INSTRUMENT REPAIRER HELPER Work Phone: [facility] 10-13-2023 11:00-0400 SaO2% (BldA) [Mass fraction] 95 % Caryn Older 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 PROCESS ENGINEER.INSTRUMENT REPAIRER HELPER Work Phone: [facility] 10-13-2023 11:00-0400 Systolic blood pressure 140 mm[Hg] Caryn Older 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 PROCESS ENGINEER.INSTRUMENT REPAIRER HELPER Work Phone: [facility] 07-15-2023 13:45-0500 Body weight 144.7 kg Caryn Older 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 PROCESS ENGINEER.INSTRUMENT REPAIRER HELPER Work Phone: [facility] 07-15-2023 13:45-0500 Diastolic blood pressure 70 mm[Hg] Caryn Older 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 PROCESS ENGINEER.INSTRUMENT REPAIRER HELPER Work Phone: [facility] 07-15-2023 13:45-0500 Heart rate 84 /min Caryn Older 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 PROCESS ENGINEER.INSTRUMENT REPAIRER HELPER Work Phone: [facility] 07-15-2023 13:45-0500 Respiratory rate 16 /min Caryn Older 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 PROCESS ENGINEER.INSTRUMENT REPAIRER HELPER Work Phone: [facility] 07-15-2023 13:45-0500 SaO2% (BldA) [Mass fraction] 98 % Caryn Older 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 PROCESS ENGINEER.INSTRUMENT REPAIRER HELPER Work Phone: [facility] 07-15-2023 13:45-0500 Systolic blood pressure 118 mm[Hg] Caryn Older 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 PROCESS ENGINEER.INSTRUMENT REPAIRER HELPER Work Phone: [facility] 07-14-2023 18:36-0500 Body height 162.6 cm KANWAL GUEVARA MD [facility] 07-14-2023 18:36-0500 Body temperature 97.88 [degF] KANWAL GUEVARA MD [facility] 07-14-2023 18:36-0500 Body weight 145.5 kg KANWAL GUEVARA MD [facility] 07-14-2023 18:36-0500 Diastolic Blood Pressure Non-Invasive 98 mm[Hg] KANWAL GUEVARA MD [facility] 07-14-2023 18:36-0500 Heart rate 105 /min KANWAL GUEVARA MD [facility] 07-14-2023 18:36-0500 Respiratory rate 20 /min KANWAL GUEVARA MD [facility] 07-14-2023 18:36-0500 Systolic Blood Pressure Non-Invasive 156 mm[Hg] KANWAL GUEVARA MD [facility] 07-14-2023 08:35-0500 Body temperature 98.29 [degF] Steve Kavithaledon 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 PROCESS ENGINEER.INSTRUMENT REPAIRER HELPER Work Phone: [facility] 07-14-2023 08:35-0500 Body weight 145.88 kg Stevesuzi Ramirez 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 PROCESS ENGINEER.INSTRUMENT REPAIRER HELPER Work Phone: [facility] 07-14-2023 08:35-0500 Diastolic blood pressure 74 mm[Hg] Steve Pendlebury 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 PROCESS ENGINEER.INSTRUMENT REPAIRER HELPER Work Phone: [facility] 07-14-2023 08:35-0500 Heart rate 97 /min Steve Pendclotilde 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 PROCESS ENGINEER.INSTRUMENT REPAIRER HELPER Work Phone: [facility] 07-14-2023 08:35-0500 Respiratory rate 22 /min Steve Pendledon 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 PROCESS ENGINEER.INSTRUMENT REPAIRER HELPER Work Phone: [facility] 07-14-2023 08:35-0500 SaO2% (BldA) [Mass fraction] 94 % Steve Ramirez 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 PROCESS ENGINEER.INSTRUMENT REPAIRER HELPER Work Phone: [facility] 07-14-2023 08:35-0500 Systolic blood pressure 118 mm[Hg] Steve Pendledon 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 PROCESS ENGINEER.INSTRUMENT REPAIRER HELPER Work Phone: [facility] 07-09-2023 15:10-0500 Body temperature 98.49 [degF] Krislyn Aberegg PA Work Phone: [facility] 07-09-2023 15:10-0500 Body weight 143.79 kg Krislyn Aberegg PA Work Phone: [facility] 07-09-2023 15:10-0500 Diastolic blood pressure 90 mm[Hg] Krislyn Aberegg PA Work Phone: [facility] 07-09-2023 15:10-0500 Heart rate 90 /min Krislyn Aberegg PA Work Phone: [facility] 07-09-2023 15:10-0500 Respiratory rate 20 /min Krislyn Aberegg PA Work Phone: [facility] 07-09-2023 15:10-0500 SaO2% (BldA) [Mass fraction] 98 % Krislyn Aberegg PA Work Phone: [facility] 07-09-2023 15:10-0500 Systolic blood pressure 161 mm[Hg] Krislyn Aberegg PA Work Phone: [facility] 06-30-2023 15:50-0500 Body temperature 97.9 [degF] Shazia Lee 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 PROCESS ENGINEER.INSTRUMENT REPAIRER HELPER Work Phone: [facility] 06-30-2023 15:50-0500 Body weight 144.88 kg Shazia Lee 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 PROCESS ENGINEER.INSTRUMENT REPAIRER HELPER Work Phone: [facility] 06-30-2023 15:50-0500 Diastolic blood pressure 78 mm[Hg] Shazia Lee 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 PROCESS ENGINEER.INSTRUMENT REPAIRER HELPER Work Phone: [facility] 06-30-2023 15:50-0500 Heart rate 85 /min Shazia Lee 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 PROCESS ENGINEER.INSTRUMENT REPAIRER HELPER Work Phone: [facility] 06-30-2023 15:50-0500 Respiratory rate 18 /min Shazia Lee 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 PROCESS ENGINEER.INSTRUMENT REPAIRER HELPER Work Phone: [facility] 02-14-2024 15:50-0500 SaO2% (BldA) [Mass fraction] 97 % Shazia Lee 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 PROCESS ENGINEER.INSTRUMENT REPAIRER HELPER Work Phone: [facility] 06-30-2023 15:50-0500 Systolic blood pressure 128 mm[Hg] Shazia Lee 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 PROCESS ENGINEER.INSTRUMENT REPAIRER HELPER Work Phone: [facility] 05-13-2023 06:03-0500 Body height 160.[address] Babar Phillip Work Phone: [facility] 05-13-2023 06:03-0500 Body mass index (BMI) [Ratio] 55.4 kg/m2 Dr. Babar Phillip Work Phone: [facility] 05-13-2023 06:03-0500 Body temperature 97.7 [degF] Dr. Babar Phillip Work Phone: [facility] 05-13-2023 06:03-0500 Body weight 141.[address] Babar Phillip Work Phone: [facility] 05-13-2023 06:03-0500 Diastolic blood pressure 93 mm[Hg] Dr. Babar Phillip Work Phone: [facility] 05-13-2023 06:03-0500 Heart rate 92 /min Dr. Babar Phillip Work Phone: [facility] 05-13-2023 06:03-0500 Respiratory rate 18 /min Dr. Babar Phillip Work Phone: [facility] 05-13-2023 06:03-0500 SaO2% (BldA) [Mass fraction] 93 % Dr. Babar Phillip Work Phone: [facility] 05-13-2023 06:03-0500 Systolic blood pressure 151 mm[Hg] Dr. Babar Phillip Work Phone: [facility] 05-03-2023 11:15-0500 Body temperature 98.3 [degF] [facility] 05-03-2023 11:15-0500 Diastolic blood pressure 70 mm[Hg] [facility] 05-03-2023 11:15-0500 Heart rate 87 /min [facility] 05-03-2023 11:15-0500 Respiratory rate 16 /min [facility] 05-03-2023 11:15-0500 SaO2% (BldA) [Mass fraction] 98 % [facility] 05-03-2023 11:15-0500 Systolic blood pressure 128 mm[Hg] [facility] 05-03-2023 09:27-0500 Body height 160.02 cm [facility] 05-03-2023 09:27-0500 Body mass index (BMI) [Ratio] 56.6 kg/m2 [facility] 05-03-2023 09:27-0500 Body weight 145 kg [facility] 03-03-2023 12:20-0400 Body weight 141.98 kg Caryn Older 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 PROCESS ENGINEER.INSTRUMENT REPAIRER HELPER Work Phone: [facility] 03-03-2023 12:20-0400 Diastolic blood pressure 78 mm[Hg] Caryn Older 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 PROCESS ENGINEER.INSTRUMENT REPAIRER HELPER Work Phone: [facility] 03-03-2023 12:20-0400 Heart rate 74 /min Caryn Older 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 PROCESS ENGINEER.INSTRUMENT REPAIRER HELPER Work Phone: [facility] 03-03-2023 12:20-0400 Respiratory rate 16 /min Caryn Older 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 PROCESS ENGINEER.INSTRUMENT REPAIRER HELPER Work Phone: [facility] 03-03-2023 12:20-0400 SaO2% (BldA) [Mass fraction] 98 % Caryn Older 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 PROCESS ENGINEER.INSTRUMENT REPAIRER HELPER Work Phone: [facility] 03-03-2023 12:20-0400 Systolic blood pressure 128 mm[Hg] Caryn Older 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 PROCESS ENGINEER.INSTRUMENT REPAIRER HELPER Work Phone: [facility] 02-15-2023 10:18-0400 Body temperature 97.3 [degF] Dr. Babar Phillip Work Phone: [facility] 02-15-2023 10:18-0400 Diastolic blood pressure 81 mm[Hg] Dr. Babar Phillip Work Phone: 7(283)[phone] [place] [address] 02-15-2023 10:18-0400 Heart rate 84 /min Dr. Babar Phillip Work Phone: 3(814)[phone] [place] [address] 02-15-2023 10:18-0400 Respiratory rate 16 /min Dr. Babar Phillip Work Phone: 6(172)[phone] [place] [address] 02-15-2023 10:18-0400 SaO2% (BldA) [Mass fraction] 98 % Dr. Babar Phillip Work Phone: 2(537)[phone] [place] [address] 02-15-2023 10:18-0400 Systolic blood pressure 138 mm[Hg] Dr. Babar Phillip Work Phone: 0(214)[phone] [place] [address] 02-15-2023 08:34-0400 Body height 160.[address] Babar Phillip Work Phone: 7(419)[phone] [place] [address] 02-15-2023 08:34-0400 Body mass index (BMI) [Ratio] 54.9 kg/m2 Dr. Babar Phillip Work Phone: 9(101)[phone] [place] [address] 02-15-2023 08:34-0400 Body weight 140.[address] Babar Phillip Work Phone: 7(560)[phone] [place] [address] 01-11-2023 23:15-0400 Blood Pressure Cuff Size DR DANIEL NATION DO [facility] 01-11-2023 23:15-[address] DANIEL NATION DO [facility] 01-11-2023 23:15-[address] DANIEL NATION DO [facility] 01-11-2023 23:15-0400 Body height 162.[address] DNAIEL NATION DO [facility] 01-11-2023 23:15-0400 Body temperature 97.16 [degF] DR DANIEL NATION DO [facility] 01-11-2023 23:15-0400 Body weight 141.[address] DANIEL NATION DO [facility] 01-11-2023 23:15-0400 Diastolic Blood Pressure Non-Invasive [address] DANIEL NATION DO [facility] 01-11-2023 23:15-0400 Heart rate 90 /min DR DANIEL NATION DO [facility] 01-11-2023 23:15-0400 Reason For Taking VItal Signs DR DNAIEL NATION DO [facility] 01-11-2023 23:15-0400 Respiratory rate 20 /min DR DANIEL NATION DO [facility] 01-11-2023 23:15-0400 Systolic Blood Pressure Non-Invasive [address] DANIEL NATION DO [facility] 01-04-2023 11:55-0400 Body temperature 98.5 [degF] Dr. Babar Phillip Work Phone: [facility] 01-04-2023 11:55-0400 Diastolic blood pressure 52 mm[Hg] Dr. Babar Phillip Work Phone: [facility] 01-04-2023 11:55-0400 Heart rate 75 /min Dr. Babar Phillip Work Phone: [facility] 01-04-2023 11:55-0400 Respiratory rate 16 /min Dr. Babar Phillip Work Phone: [facility] 01-04-2023 11:55-0400 SaO2% (BldA) [Mass fraction] 97 % Dr. Babar Phillip Work Phone: [facility] 01-04-2023 11:55-0400 Systolic blood pressure 120 mm[Hg] Dr. Babar Phillip Work Phone: [facility] 01-04-2023 10:52-0400 Body height 162.[address] Babar Phillip Work Phone: [facility] 01-04-2023 10:52-0400 Body mass index (BMI) [Ratio] 53.3 kg/m2 Dr. Babar Phillip Work Phone: [facility] 01-04-2023 10:52-0400 Body weight [address] Babar Phillip Work Phone: [facility] 12-31-2022 11:05-0400 Body weight 139.71 kg Caryn Older 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 PROCESS ENGINEER.INSTRUMENT REPAIRER HELPER Work Phone: [facility] 12-31-2022 11:05-0400 Diastolic blood pressure 82 mm[Hg] Caryn Older 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 PROCESS ENGINEER.INSTRUMENT REPAIRER HELPER Work Phone: [facility] 12-31-2022 11:05-0400 Heart rate 76 /min Caryn Older 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 PROCESS ENGINEER.INSTRUMENT REPAIRER HELPER Work Phone: [facility] 12-31-2022 11:05-0400 Respiratory rate 16 /min Caryn Older 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 PROCESS ENGINEER.INSTRUMENT REPAIRER HELPER Work Phone: [facility] 12-31-2022 11:05-0400 SaO2% (BldA) [Mass fraction] 96 % Caryn Older 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 PROCESS ENGINEER.INSTRUMENT REPAIRER HELPER Work Phone: [facility] 12-31-2022 11:05-0400 Systolic blood pressure 136 mm[Hg] Caryn Older 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 PROCESS ENGINEER.INSTRUMENT REPAIRER HELPER Work Phone: [facility] 12-21-2022 13:02-0400 Body height [address] [facility] 12-21-2022 13:02-0400 Body weight 141.[address] [facility] 11-23-2022 10:50-0400 Body temperature 97.5 [degF] Caryn Older 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 PROCESS ENGINEER.INSTRUMENT REPAIRER HELPER Work Phone: [facility] 11-23-2022 10:50-0400 Body weight 140.62 kg Caryn Older 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 PROCESS ENGINEER.INSTRUMENT REPAIRER HELPER Work Phone: [facility] 11-23-2022 10:50-0400 Diastolic blood pressure 72 mm[Hg] Caryn Older 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 PROCESS ENGINEER.INSTRUMENT REPAIRER HELPER Work Phone: [facility] 11-23-2022 10:50-0400 Heart rate 88 /min Caryn Older 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 PROCESS ENGINEER.INSTRUMENT REPAIRER HELPER Work Phone: [facility] 11-23-2022 10:50-0400 Respiratory rate 16 /min Caryn Older 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 PROCESS ENGINEER.INSTRUMENT REPAIRER HELPER Work Phone: [facility] 11-23-2022 10:50-0400 SaO2% (BldA) [Mass fraction] 98 % Caryn Older 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 PROCESS ENGINEER.INSTRUMENT REPAIRER HELPER Work Phone: [facility] 11-23-2022 10:50-0400 Systolic blood pressure 122 mm[Hg] Caryn Older 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 PROCESS ENGINEER.INSTRUMENT REPAIRER HELPER Work Phone: [facility] 11-10-2022 05:55-0400 Body mass index (BMI) [Ratio] 54.7 kg/m2 Dr. Babar Phillip Work Phone: 2(451)501-671397 [place] [address] 11-10-2022 05:55-0400 Body temperature 97.4 [degF] Dr. Babar Phillip Work Phone: 3(873)046-097694 [place] [address] 11-10-2022 05:55-0400 Body weight 140.[address] Babar Phillip Work Phone: 8(762)265-548597 [place] [address] 11-10-2022 05:55-0400 Diastolic blood pressure 82 mm[Hg] Dr. Babar Phillip Work Phone: 5(381)757-701497 [place] [address] 11-10-2022 05:55-0400 Heart rate 80 /min Dr. Babar Phillip Work Phone: 0(139)857-451797 [place] [address] 11-10-2022 05:55-0400 Respiratory rate 18 /min Dr. Babar Phillip Work Phone: 3(899)809-483197 [place] [address] 11-10-2022 05:55-0400 SaO2% (BldA) [Mass fraction] 94 % Dr. Babar Phillip Work Phone: [facility] 11-10-2022 05:55-0400 Systolic blood pressure 137 mm[Hg] Dr. Babar Phillip Work Phone: [facility] 08-24-2022 11:00-0400 Body weight 136.53 kg 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 PROCESS ENGINEER.INSTRUMENT REPAIRER HELPER Work Phone: [facility] 08-24-2022 11:00-0400 Diastolic blood pressure 72 mm[Hg] 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 PROCESS ENGINEER.INSTRUMENT REPAIRER HELPER Work Phone: [facility] 08-24-2022 11:00-0400 Heart rate 80 /min Caryn Older 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 PROCESS ENGINEER.INSTRUMENT REPAIRER HELPER Work Phone: [facility] 08-24-2022 11:00-0400 Respiratory rate 16 /min Caryn Older 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 PROCESS ENGINEER.INSTRUMENT REPAIRER HELPER Work Phone: [facility] 08-24-2022 11:00-0400 Systolic blood pressure 128 mm[Hg] 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 PROCESS ENGINEER.INSTRUMENT REPAIRER HELPER Work Phone: [facility] 08-03-2022 12:01-0400 Body temperature 97.8 [degF] Dr. Babar Phillip Work Phone: 7(924)923-055397 [place] [address] 08-03-2022 12:01-0400 Diastolic blood pressure 82 mm[Hg] Dr. Babar Phillip Work Phone: 5(296)221-889597 [place] [address] 08-03-2022 12:01-0400 Heart rate 81 /min Dr. Babar Phillip Work Phone: 1(989)700-356794 [place] [address] 08-03-2022 12:01-0400 Respiratory rate 18 /min Dr. Babar Phillip Work Phone: 5(820)116-141394 [place] [address] 08-03-2022 12:01-0400 SaO2% (BldA) [Mass fraction] 100 % Dr. Babar Phillip Work Phone: 2(169)100-574297 [place] [address] 08-03-2022 12:01-0400 Systolic blood pressure 110 mm[Hg] Dr. Babar Phillip Work Phone: 3(809)177-884397 [place] [address] 08-03-2022 11:19-0400 Body height 160.[address] Babar Phillip Work Phone: [facility] 08-03-2022 11:19-0400 Body mass index (BMI) [Ratio] 54.3 kg/m2 Dr. Babar Phillip Work Phone: [facility] 08-03-2022 11:19-0400 Body weight [address] Babar Phillip Work Phone: [facility] 07-17-2022 14:10-0500 Body weight 136.53 kg Caryn Older 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 PROCESS ENGINEER.INSTRUMENT REPAIRER HELPER Work Phone: [facility] 07-17-2022 14:10-0500 Diastolic blood pressure 80 mm[Hg] Caryn Older 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 PROCESS ENGINEER.INSTRUMENT REPAIRER HELPER Work Phone: [facility] 07-17-2022 14:10-0500 Heart rate 80 /min Caryn Older 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 PROCESS ENGINEER.INSTRUMENT REPAIRER HELPER Work Phone: [facility] 07-17-2022 14:10-0500 Respiratory rate 16 /min Caryn Older 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 PROCESS ENGINEER.INSTRUMENT REPAIRER HELPER Work Phone: [facility] 07-17-2022 14:10-0500 Systolic blood pressure 128 mm[Hg] Caryn Older 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 PROCESS ENGINEER.INSTRUMENT REPAIRER HELPER Work Phone: [facility] 06-17-2022 14:05-0500 Body height 160 cm Jared Xin PA-C Work Phone: [facility] 06-17-2022 14:05-0500 Body weight 138.35 kg Jared Ramah PA-C Work Phone: [facility] 06-03-2022 15:32-0500 Body height 160 cm Kelli Abdirashid PA-C Work Phone: [facility] 06-03-2022 15:32-0500 Body weight 138.35 kg Kelli Abdirashid PA-C Work Phone: [facility] 06-03-2022 15:32-0500 Diastolic blood pressure 74 mm[Hg] Kelli Abdirashid PA-C Work Phone: [facility] 06-03-2022 15:32-0500 Heart rate 84 /min Kelli Abdirashid PA-C Work Phone: [facility] 06-03-2022 15:32-0500 Systolic blood pressure 124 mm[Hg] Kelli Sharmalan PA-C Work Phone: [facility] 05-25-2022 10:43-0500 Body weight 137.89 kg Caryn Older 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 PROCESS ENGINEER.INSTRUMENT REPAIRER HELPER Work Phone: [facility] 05-25-2022 10:43-0500 Diastolic blood pressure 78 mm[Hg] Caryn Older 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 PROCESS ENGINEER.INSTRUMENT REPAIRER HELPER Work Phone: [facility] 05-25-2022 10:43-0500 Heart rate 88 /min Caryn Older 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 PROCESS ENGINEER.INSTRUMENT REPAIRER HELPER Work Phone: [facility] 05-25-2022 10:43-0500 Respiratory rate 16 /min Caryn Older 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 PROCESS ENGINEER.INSTRUMENT REPAIRER HELPER Work Phone: [facility] 05-25-2022 10:43-0500 Systolic blood pressure 122 mm[Hg] Caryn Older 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 PROCESS ENGINEER.INSTRUMENT REPAIRER HELPER Work Phone: [facility] 05-01-2022 12:40-0500 Body mass index (BMI) [Ratio] 54.8 kg/m2 Dr. Babar Phillip Work Phone: [facility] 05-01-2022 12:40-0500 Body temperature 98.6 [degF] Dr. Babar Phillip Work Phone: [facility] 05-01-2022 12:40-0500 Body weight 136.[address] Babar Phillip Work Phone: [facility] 05-01-2022 12:40-0500 Diastolic blood pressure 83 mm[Hg] Dr. Babar Phillip Work Phone: [facility] 05-01-2022 12:40-0500 Heart rate 98 /min Dr. Babar Phillip Work Phone: [facility] 05-01-2022 12:40-0500 Respiratory rate 20 /min Dr. Babar Phillip Work Phone: [facility] 05-01-2022 12:40-0500 SaO2% (BldA) [Mass fraction] 95 % Dr. Babar Phillip Work Phone: [facility] 05-01-2022 12:40-0500 Systolic blood pressure 145 mm[Hg] Dr. Babar Phillip Work Phone: [facility] 04-15-2022 14:35-0500 Body temperature 97.11 [degF] Caryn Older PHARMACEUTICAL PROCESS ENGINEER.INSTRUMENT REPAIRER HELPER Work Phone: [facility] 04-15-2022 14:35-0500 Body weight 136.08 kg Caryn Older PHARMACEUTICAL PROCESS ENGINEER.INSTRUMENT REPAIRER HELPER Work Phone: [facility] 04-15-2022 14:35-0500 Diastolic blood pressure 78 mm[Hg] Caryn Older PHARMACEUTICAL PROCESS ENGINEER.INSTRUMENT REPAIRER HELPER Work Phone: [facility] 04-15-2022 14:35-0500 Heart rate 84 /min Caryn Older PHARMACEUTICAL PROCESS ENGINEER.INSTRUMENT REPAIRER HELPER Work Phone: [facility] 04-15-2022 14:35-0500 Respiratory rate 16 /min Caryn Older PHARMACEUTICAL PROCESS ENGINEER.INSTRUMENT REPAIRER HELPER Work Phone: [facility] 04-15-2022 14:35-0500 SaO2% (BldA) [Mass fraction] 95 % Cayrn Older PHARMACEUTICAL PROCESS ENGINEER.INSTRUMENT REPAIRER HELPER Work Phone: [facility] 04-15-2022 14:35-0500 Systolic blood pressure 126 mm[Hg] Caryn Older PHARMACEUTICAL PROCESS ENGINEER.INSTRUMENT REPAIRER HELPER Work Phone: [facility] 04-08-2022 14:29-0500 Body weight 136.08 kg Caryn Older PHARMACEUTICAL PROCESS ENGINEER.INSTRUMENT REPAIRER HELPER Work Phone: [facility] 04-08-2022 14:29-0500 Diastolic blood pressure 82 mm[Hg] Caryn Older PHARMACEUTICAL PROCESS ENGINEER.INSTRUMENT REPAIRER HELPER Work Phone: [facility] 11-23-2022 14:29-0500 Heart rate 80 /min Caryn Older PHARMACEUTICAL PROCESS ENGINEER.INSTRUMENT REPAIRER HELPER Work Phone: [facility] 04-08-2022 14:29-0500 Respiratory rate 16 /min Caryn Older PHARMACEUTICAL PROCESS ENGINEER.INSTRUMENT REPAIRER HELPER Work Phone: [facility] 04-08-2022 14:29-0500 Systolic blood pressure 132 mm[Hg] Caryn Older PHARMACEUTICAL PROCESS ENGINEER.INSTRUMENT REPAIRER HELPER Work Phone: [facility] 03-25-2022 17:44-0500 Body weight 137.44 kg Caryn Older PHARMACEUTICAL PROCESS ENGINEER.INSTRUMENT REPAIRER HELPER Work Phone: [facility] 03-25-2022 17:44-0500 Diastolic blood pressure 78 mm[Hg] Caryn Older PHARMACEUTICAL PROCESS ENGINEER.INSTRUMENT REPAIRER HELPER Work Phone: [facility] 03-25-2022 17:44-0500 Heart rate 80 /min Caryn Older PHARMACEUTICAL PROCESS ENGINEER.INSTRUMENT REPAIRER HELPER Work Phone: [facility] 03-25-2022 17:44-0500 Respiratory rate 16 /min Caryn Older PHARMACEUTICAL PROCESS ENGINEER.INSTRUMENT REPAIRER HELPER Work Phone: [facility] 03-25-2022 17:44-0500 Systolic blood pressure 128 mm[Hg] Caryn Older PHARMACEUTICAL PROCESS ENGINEER.INSTRUMENT REPAIRER HELPER Work Phone: [facility] 02-20-2022 13:19-0400 Diastolic blood pressure 82 mm[Hg] Caryn Older PHARMACEUTICAL PROCESS ENGINEER.INSTRUMENT REPAIRER HELPER Work Phone: [facility] 02-20-2022 13:19-0400 Heart rate 84 /min Caryn Older PHARMACEUTICAL PROCESS ENGINEER.INSTRUMENT REPAIRER HELPER Work Phone: [facility] 02-20-2022 13:19-0400 Respiratory rate 16 /min Caryn Older PHARMACEUTICAL PROCESS ENGINEER.INSTRUMENT REPAIRER HELPER Work Phone: [facility] 02-20-2022 13:19-0400 Systolic blood pressure 134 mm[Hg] Caryn Older PHARMACEUTICAL PROCESS ENGINEER.INSTRUMENT REPAIRER HELPER Work Phone: [facility] 12-22-2021 15:40-0400 Body temperature 97.7 [degF] Anu Older PHARMACEUTICAL PROCESS ENGINEER.INSTRUMENT REPAIRER HELPER Work Phone: [facility] 12-22-2021 15:40-0400 Body weight 138.8 kg Anu Older PHARMACEUTICAL PROCESS ENGINEER.INSTRUMENT REPAIRER HELPER Work Phone: [facility] 12-22-2021 15:40-0400 Diastolic blood pressure 84 mm[Hg] Anu Older PHARMACEUTICAL PROCESS ENGINEER.INSTRUMENT REPAIRER HELPER Work Phone: [facility] 12-22-2021 15:40-0400 Heart rate 82 /min Anu Older PHARMACEUTICAL PROCESS ENGINEER.INSTRUMENT REPAIRER HELPER Work Phone: [facility] 12-22-2021 15:40-0400 Respiratory rate 18 /min Anu Older PHARMACEUTICAL PROCESS ENGINEER.INSTRUMENT REPAIRER HELPER Work Phone: [facility] 12-22-2021 15:40-0400 SaO2% (BldA) [Mass fraction] 98 % Anu Older PHARMACEUTICAL PROCESS ENGINEER.INSTRUMENT REPAIRER HELPER Work Phone: [facility] 12-22-2021 15:40-0400 Systolic blood pressure 124 mm[Hg] Anu Older PHARMACEUTICAL PROCESS ENGINEER.INSTRUMENT REPAIRER HELPER Work Phone: [facility] 12-19-2021 15:46-0400 Body temperature 98.01 [degF] Sheri Jono PHARMACEUTICAL PROCESS ENGINEER.INSTRUMENT REPAIRER HELPER Work Phone: [facility] 12-19-2021 15:46-0400 Body weight 138.98 kg Sheri Jono PHARMACEUTICAL PROCESS ENGINEER.INSTRUMENT REPAIRER HELPER Work Phone: [facility] 12-19-2021 15:46-0400 Diastolic blood pressure 78 mm[Hg] Sheri Jono PHARMACEUTICAL PROCESS ENGINEER.INSTRUMENT REPAIRER HELPER Work Phone: [facility] 12-19-2021 15:46-0400 Heart rate 113 /min Sheri Jono PHARMACEUTICAL PROCESS ENGINEER.INSTRUMENT REPAIRER HELPER Work Phone: [facility] 12-19-2021 15:46-0400 Respiratory rate 18 /min Sheri Jono PHARMACEUTICAL PROCESS ENGINEER.INSTRUMENT REPAIRER HELPER Work Phone: [facility] 12-19-2021 15:46-0400 SaO2% (BldA) [Mass fraction] 97 % Sheri Jono PHARMACEUTICAL PROCESS ENGINEER.INSTRUMENT REPAIRER HELPER Work Phone: [facility] 12-19-2021 15:46-0400 Systolic blood pressure 126 mm[Hg] Sheri De La Cruz PHARMACEUTICAL PROCESS ENGINEER.INSTRUMENT REPAIRER HELPER Work Phone: [facility] 10-20-2021 13:31-0400 Body weight 140.16 kg Caryn Older PHARMACEUTICAL PROCESS ENGINEER.INSTRUMENT REPAIRER HELPER Work Phone: [facility] 10-20-2021 13:31-0400 Diastolic blood pressure 72 mm[Hg] Caryn Older PHARMACEUTICAL PROCESS ENGINEER.INSTRUMENT REPAIRER HELPER Work Phone: [facility] 10-20-2021 13:31-0400 Heart rate 80 /min Caryn Older PHARMACEUTICAL PROCESS ENGINEER.INSTRUMENT REPAIRER HELPER Work Phone: [facility] 10-20-2021 13:31-0400 Respiratory rate 16 /min Caryn Older PHARMACEUTICAL PROCESS ENGINEER.INSTRUMENT REPAIRER HELPER Work Phone: [facility] 10-20-2021 13:31-0400 Systolic blood pressure 128 mm[Hg] Caryn Older PHARMACEUTICAL PROCESS ENGINEER.INSTRUMENT REPAIRER HELPER Work Phone: [facility] Encounters Encounter Date Encounter Type Care Provider Facility Start: 12-24-2024 End: 12-24-2024 Patient encounter procedure Jazmyne Wyatt PHARMACEUTICAL PROCESS ENGINEER.INSTRUMENT REPAIRER HELPER Work Phone: [facility] Comment on above: Left breast abscess (Primary Dx); Cellulitis of skin Start: 12-23-2024 End: 12-23-2024 Emergency department patient visit JESÚS HERRERA DO [facility] Start: 12-22-2024 End: 12-22-2024 ambulatory CARYN OLDER Facility:[facility] Start: 12-21-2024 End: 12-21-2024 [facility] Start: 11-21-2024 End: 11-22-2024 Refill Caryn Older PHARMACEUTICAL PROCESS ENGINEER.INSTRUMENT REPAIRER HELPER Work Phone: [facility] Comment on above: Refill Request Start: 11-20-2024 End: 11-20-2024 Office outpatient visit 25 minutes Caryn Older PHARMACEUTICAL PROCESS ENGINEER.INSTRUMENT REPAIRER HELPER Work Phone: [facility] [place] Comment on above: Rash (Primary Dx); Skin infection Start: 11-20-2024 End: 11-20-2024 [facility] Facility:[facility] Start: 10-31-2024 End: 12-01-2024 ambulatory Babar Phillip MD Work Phone: [facility] [place] Start: 10-26-2024 End: 10-26-2024 Refill Babar Phillip MD Work Phone: [facility] [place] Comment on above: Refill Request Start: 10-20-2024 End: 10-20-2024 Office outpatient visit 25 minutes Caryn Lowery APRN.INSTRUMENT REPAIRER HELPER Work Phone: [facility] [place] Comment on above: Chest pain, unspecif ied type (Primary Dx); Mild intermittent asthma with acute exacerbation (HCC); Dyspnea, unspecified type; Wheezing; Other hyperlipidemia; Tobacco use; Fatigue, unspecified type Start: 10-20-2024 End: 10-20-2024 [facility] Facility:[facility] Start: 10-17-2024 End: 10-17-2024 Office outpatient visit 40 minutes Charis Swan APRN.INSTRUMENT REPAIRER HELPER Work Phone: [facility] Medicine Comment on above: Asthma, moderate per sistent, poorly-controlled (HCC) (Primary Dx); Multiple allergies; Productive cough; Cigarette smoker; Morbid obesity (HCC); Chronic hypoxemic respiratory failure (HCC); Lung nodule Start: 10-17-2024 End: 10-17-2024 [facility] Facility:[facility] Start: 10-14-2024 End: 10-15-2024 Emergency department patient visit DAVID NGUYEN MD [facility] Start: 10-11-2024 End: 10-13-2024 Follow-up encounter Caryn Lowery APRN.INSTRUMENT REPAIRER HELPER Work Phone: [facility] Start: 10-11-2024 End: 10-11-2024 Subsequent hospital visit by physician [facility] Work Phone: Radiology Comment on above: Chest pain, unspecif ied type [R07.9] Start: 10-11-2024 End: 10-11-2024 Office outpatient visit 25 minutes Caryn Lowery APRN.INSTRUMENT REPAIRER HELPER Work Phone: [facility] Comment on above: Chest pain, unspecif ied type (Primary Dx); Dyspnea, unspecified type; Wheezing; Subacute cough; Acute pain of both shoulders; History of pulmonary aspergillosis; Tobacco dependence due to cigarettes; Gastroesophageal reflux disease without esophagitis Start: 10-11-2024 End: 10-11-2024 ambulatory Caryn Lowery APRN.INSTRUMENT REPAIRER HELPER Work Phone: [facility] [place] Comment on above: Allergy Start: 10-10-2024 End: 10-13-2024 ambulatory Babar Phillip MD Work Phone: [facility] [place] [id number] Start: 08-02-2024 End: 10-02-2024 Follow-up encounter Caryn Lowery APRN.INSTRUMENT REPAIRER HELPER Work Phone: [facility] [place] Start: 07-31-2024 End: 07-31-2024 [facility] Facility:[facility] Start: 07-27-2024 End: 07-27-2024 [facility] Start: 07-27-2024 End: 07-27-2024 Patient encounter procedure Caryn Lowery APRN.INSTRUMENT REPAIRER HELPER Work Phone: [facility] Comment on above: Controlled type 2 di abetes mellitus without complication, without long-term current use of insulin (HCC) (Primary Dx); Hypothyroidism, unspecified type Start: 07-13-2024 End: 07-13-2024 Subsequent hospital visit by physician Марина [facility] [place] Work Phone: Radiology Comment on above: Acute cough [R05.1] Start: 07-13-2024 End: 07-13-2024 ambulatory [facility] Facility:[facility] Start: 07-13-2024 End: 07-13-2024 Patient encounter procedure Janie Vinson APRN.INSTRUMENT REPAIRER HELPER Work Phone: [facility] Comment on above: URI, acute (Primary Dx); Acute cough Start: 06-30-2024 End: 06-30-2024 ambulatory [facility] Facility:[facility] Start: 06-30-2024 End: 06-30-2024 Patient encounter procedure Caryn Lowery APRN.INSTRUMENT REPAIRER HELPER Work Phone: [facility] [place] Comment on above: Controlled type 2 di abetes mellitus without complication, without long-term current use of insulin (HCC) (Primary Dx); Morbid obesity with BMI of 50.0-59.9, adult ([facility]) Start: 06-19-2024 End: 06-19-2024 Telephone encounter Elle Boone MD Work Phone: Pulmonary Medicine Start: 06-16-2024 End: 06-16-2024 ambulatory [facility] Work Phone: [facility] Comment on above: Spirometry Start: 06-16-2024 End: 06-16-2024 Patient encounter procedure [facility] Work Phone: [facility] Comment on above: Mild persistent asth ma without complication (Primary Dx); Morbid obesity ([facility]); Chronic hypoxemic respiratory failure ([facility]); Lung nodule; Cigarette smoker Start: 05-16-2024 End: 05-19-2024 Refill Babar Phillip MD Work Phone: [facility] [place] Comment on above: Refill Request Start: 04-28-2024 End: 04-28-2024 ambulatory [facility] Facility:[facility] Start: 04-28-2024 End: 04-28-2024 Patient encounter procedure Caryn Lowery APRN.INSTRUMENT REPAIRER HELPER Work Phone: [facility] [place] Comment on above: 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); Mild intermittent asthma with acute exacerbation; Controlled type 2 diabetes mellitus without complication, without long-term current use of insulin (HCC); Gastroesophageal reflux disease without esophagitis; Morbid obesity with BMI of 50.0-59.9, adult ([facility]); Encounter for immunization; Essential hypertension; Other hyperlipidemia Start: 04-12-2024 End: 04-12-2024 Refill Babar Phillip MD Work Phone: [facility] [place] Comment on above: Refill Request Start: 04-05-2024 End: 04-05-2024 Telephone encounter Shazia Lee PHARMACEUTICAL PROCESS ENGINEER.INSTRUMENT REPAIRER HELPER Work Phone: [facility] [facility] Comment on above: Results Start: 04-02-2024 End: 04-02-2024 [facility] Facility:[facility] Start: 04-02-2024 End: 04-02-2024 Patient encounter procedure Victoria Nguyen PHARMACEUTICAL PROCESS ENGINEER.INSTRUMENT REPAIRER HELPER Work Phone: [facility] Comment on above: Abscess packing haresh brennon (Primary Dx) Start: 04-01-2024 End: 04-01-2024 [facility] Facility:[facility] Start: 04-01-2024 End: 04-01-2024 Patient encounter procedure Victoria Nguyen PHARMACEUTICAL PROCESS ENGINEER.INSTRUMENT REPAIRER HELPER Work Phone: [facility] Comment on above: Boil (Primary Dx) Start: 03-31-2024 End: 03-31-2024 [facility] Facility:[facility] Start: 03-31-2024 End: 03-31-2024 Patient encounter procedure Janie Vinson PHARMACEUTICAL PROCESS ENGINEER.INSTRUMENT REPAIRER HELPER Work Phone: [facility] Comment on above: Skin infection (Prim danielle Dx) Start: 03-17-2024 End: 03-17-2024 [facility] Facility:[facility] Start: 03-17-2024 End: 03-17-2024 Patient encounter procedure Caryn Lowery PHARMACEUTICAL PROCESS ENGINEER.INSTRUMENT REPAIRER HELPER Work Phone: Internal Medicine [place] Comment on above: 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[facility]) (Primary Dx); EAMON (obstructive sleep apnea); Uncontrolled asthma Refill Request Start: 03-08-2024 ambulatory Yoseph Barakat ty:[facility] Start: 03-03-2024 End: 03-03-2024 [facility] Facility:[facility] Start: 02-29-2024 End: 03-01-2024 Telephone encounter Babar Phillip MD Work Phone: Internal Medicine [place] Comment on above: Faxed to [facility] Start: 02-29-2024 End: 02-29-2024 ambulatory [facility] Facility:[facility] Start: 02-29-2024 End: 02-29-2024 Subsequent hospital visit by physician Jennifer [facility] Work Phone: [facility] [place] Comment on above: Shortness of breath [R06.02] Start: 02-28-2024 End: 02-28-2024 Telephone encounter Babar Phillip MD Work Phone: Internal Medicine [place] Comment on above: Results Start: 02-25-2024 End: 02-25-2024 ambulatory [facility] Facility:[facility] Start: 02-25-2024 End: 02-25-2024 Telephone encounter Babar Phillip MD Work Phone: Internal Medicine [place] Comment on above: Faxed to [facility] Lab Orders Refill Request Start: 02-25-2024 End: 02-25-2024 ambulatory [facility] Start: 02-25-2024 End: 02-25-2024 ambulatory Coco Regalado NP Facility:[facility] Start: 02-21-2024 End: 02-21-2024 ambulatory DURAN BLUNT Facility:[facility] Start: 02-21-2024 End: 02-21-2024 Patient encounter procedure Duran Blunt MD Work Phone: Orthopaedics Comment on above: 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); Ulnar neuropathy at elbow of right upper extremity Start: 02-17-2024 End: 02-17-2024 ambulatory CARYN LOWERY Facility:[facility] Start: 02-17-2024 End: 02-17-2024 Patient encounter procedure Caryn Lowery APRN.CNP Work Phone: Internal Medicine [place] Comment on above: Shortness of breath (Primary Dx); Cough, unspecified type; Wheezing; Low O2 saturation; Mild intermittent asthma with acute exacerbation Start: 02-16-2024 End: 02-16-2024 Refchio Phillip MD Work Phone: Internal Medicine [place] Comment on above: Refill Request Start: 02-04-2024 End: 02-04-2024 [facility] Facility:[facility] Start: 02-04-2024 End: 02-04-2024 Subsequent hospital visit by physician Xr [facility] Work Phone: Radiology Comment on above: Shortness of breath [R06.02] Start: 02-02-2024 End: 02-02-2024 [facility] Facility:[facility] Start: 02-02-2024 End: 02-02-2024 Patient encounter procedure [facility] PHARMACEUTICAL PROCESS ENGINEER.INSTRUMENT REPAIRER HELPER Work Phone: Internal Medicine [place] Comment on above: Shortness of breath (Primary Dx); Cough, unspecified type; Wheezing; Acute sinusitis, recurrence not specified, unspecified location; Malaise Start: 01-31-2024 End: 01-31-2024 ambulatory [facility] PHARMACEUTICAL PROCESS ENGINEER.INSTRUMENT REPAIRER HELPER Work Phone: Internal Medicine [place] Comment on above: I am still sick Start: 01-21-2024 End: 01-21-2024 Subsequent hospital visit by physician Xr [facility] [place] Work Phone: Radiology Comment on above: Shortness of breath [R06.02] Start: 01-21-2024 End: 01-21-2024 [facility] Facility:[facility] Start: 01-21-2024 End: 01-21-2024 Patient encounter procedure Caryn Older PHARMACEUTICAL PROCESS ENGINEER.INSTRUMENT REPAIRER HELPER Work Phone: Internal [facility] [place] Comment on above: Shortness of breath (Primary Dx); Chills; Cough, unspecified type; Wheezing; Other fatigue Start: 01-19-2024 End: 01-19-2024 Orders Only Duran Blunt MD Work Phone: Orthopaedics Comment on above: Right knee pain, uns pecified chronicity (Primary Dx) Start: 01-18-2024 End: 01-19-2024 Telephone encounter Duran Blunt MD Work Phone: Orthopaedics Start: 01-13-2024 End: 01-13-2024 ambulatory BABAR PHILLIP Facility:[facility] Start: 01-13-2024 End: 01-13-2024 Patient encounter procedure Carny Lowery APRN.INSTRUMENT REPAIRER HELPER Work Phone: [facility] [place] Comment on above: Shortness of breath (Primary Dx); Chest pain, unspecified type; Nodular radiologic density; Anger; Elevated d-dimer; Nausea and vomiting, unspecified vomiting type; Essential hypertension Start: 01-11-2024 End: 01-19-2024 Telephone encounter Babar Phillip MD Work Phone: [facility] Medicine [place] Comment on above: Medication Problem Start: 01-06-2024 End: 01-06-2024 Refill Babar Phillip MD Work Phone: [facility] [place] Comment on above: Refill Request Start: 01-05-2024 End: 01-06-2024 Telephone encounter Caryn Lowery APRN.INSTRUMENT REPAIRER HELPER Work Phone: Internal Medicine [place] Comment on above: Orders Start: 01-04-2024 End: 01-04-2024 Emergency department patient visit CHELSIE MORALES MD [facility] Start: 01-04-2024 End: 01-04-2024 Telephone encounter Babar Phillip MD Work Phone: [facility] [place] Comment on above: Elevated D- Dimer Start: 01-03-2024 End: 01-03-2024 Subsequent hospital visit by physician Марина [facility] [place] Work Phone: Radiology Comment on above: Chest pain, unspecif ied type [R07.9] Start: 01-03-2024 End: 01-03-2024 ambulatory CARYN LOWERY Facility:[facility] Start: 01-03-2024 End: 01-03-2024 Patient encounter procedure Caryn Lowery APRN.INSTRUMENT REPAIRER HELPER Work Phone: Internal Medicine [place] Comment on above: Chest pain, unspecif ied type (Primary Dx); Shortness of breath; Palpitations; Controlled type 2 diabetes mellitus without complication, without long-term current use of insulin ([facility]) Start: 12-10-2023 Refill Babar Prince Work Phone: Internal Medicine [place] Comment on above: Refill Request Start: 12-07-2023 Refill Babar Prince Work Phone: Family Medicine [place] Comment on above: Refill Request Start: 12-06-2023 End: 12-06-2023 Office outpatient visit 25 minutes Steve Ramirez APRN.CNP Work Phone: [place] [facility] Comment on above: Dental infection (Pr imary Dx) Start: 12-06-2023 Telephone encounter Babar tolentino MD Work Phone: [facility] [place] Comment on above: Patient Question Start: 12-03-2023 End: 12-03-2023 Patient encounter procedure Caryn Lowery APRN.INSTRUMENT REPAIRER HELPER Work Phone: Internal Medicine [place] Comment on above: Epigastric pain (Delma shayne Dx); Morbid obesity with BMI of 50.0-59.9, adult (HCC); Controlled type 2 diabetes mellitus without complication, without long-term current use of insulin ([facility]) Start: 12-01-2023 ambulatory Babar Prince Work Phone: Internal Medicine [facility] Start: 11-30-2023 Refill Babar Prince Work Phone: Internal Medicine [place] Comment on above: Refill Request Start: 11-23-2023 Telephone encounter Linda lozano APRN.INSTRUMENT REPAIRER HELPER Work Phone: Internal Medicine [place] Comment on above: Orders Start: 11-23-2023 End: 11-23-2023 Subsequent hospital visit by physician [facility] Comment on above: Epigastric pain [R10 .13] Start: 11-16-2023 Telephone encounter Caryn Lowery APRN.CNP Work Phone: [facility] [place] Comment on above: Results Start: 11-15-2023 End: 11-15-2023 Patient encounter procedure Carny Lowery APRN.CNP Work Phone: Internal Medicine [place] Comment on above: Epigastric pain (Delma shayne [...] complication, without long-term current use of insulin ([facility]) Start: 10-13-2023 End: 10-13-2023 Patient encounter procedure Caryn Lowery APRN.INSTRUMENT REPAIRER HELPER Work Phone: Internal Medicine [place] Comment on above: Adjustment disorder with depressed mood (Primary Dx); STD exposure Start: 09-03-2023 Refill Babar Prince Work Phone: [facility] [place] Comment on above: Refill Request Start: 08-25-2023 ambulatory Babar Prince Work Phone: Internal Medicine [place] Comment on above: Swelling Around Left Eye Start: 08-17-2023 Telephone encounter Babar tolentino MD Work Phone: [facility] [place] Comment on above: blood pressure kit p roblem Orders Start: 08-10-2023 Refill Caryn Lowery APRN, .CNP Work Phone: [facility] [place] Comment on above: Refill Request Start: 07-30-2023 Refill Babar Prince Work Phone: Internal Medicine [place] Comment on above: Opened In Error Start: [...] Emergency department patient visit KANWAL GUEVARA MD [facility] Start: 07-14-2023 End: 07-14-2023 Office outpatient visit 15 minutes Steve Ramirez PHARMACEUTICAL PROCESS ENGINEER.INSTRUMENT REPAIRER HELPER Work Phone: [place] [facility] Comment on above: Rash (Primary Dx) Start: 07-09-2023 End: 07-09-2023 Subsequent hospital visit by physician Xr [facility] Work Phone: Radiology Comment on above: Acute cough [R05.1] Start: 07-09-2023 End: 07-09-2023 Patient encounter procedure Niranjan CHENG Work Phone: [place] [facility] Comment on above: Acute cough (Primary Dx); Rash Start: 06-30-2023 End: 06-30-2023 Patient encounter procedure Shazia Lee PHARMACEUTICAL PROCESS ENGINEER.INSTRUMENT REPAIRER HELPER Work Phone: [place] [facility] Comment on above: URI, acute (Primary Dx); Asthma with COPD with exacerbation (HCC) (HCC) Start: 06-30-2023 ambulatory Babar Prince Work Phone: Internal Medicine [place] Comment on above: Cough; Nasal Congest ion Start: 05-13-2023 End: 05-13-[address] Babar Phillip Work Phone: [facility] Work Phone: Start: 05-13-2023 End: 05-13-[address] Babar Phillip Work Phone: [facility]-Cat Scan, [facility] Work Phone: Start: 05-13-2023 End: 05-13-[address] Babar Phillip Work Phone: [facility] Medicine [facility] Work Phone: Start: 05-13-2023 End: 05-13-2023 ambulatory Kamron Reza [facility] Start: 05-13-2023 End: 05-13-2023 ambulatory Kamron Reza Facility:[facility] Start: 05-03-2023 End: 05-03-2023 Admission to same day surgery center [facility] Start: 05-03-2023 End: 05-03-2023 ambulatory Babar Phillip [facility] Work Phone: Start: 04-21-2023 End: 04-21-2023 Subsequent hospital visit by physician Xr [facility] Work Phone: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 malignant neoplasm of cervix [facility] Comment on above: Postponed from 08/23/2013 (Declined at t his time) Start: 05-31-2024 Spirometry Spirometry [facility] Comment on above: Postponed from 01/10/1996 (Declined at t his time) Start: 05-31-2024 Urine microalbumin profile DTaP,Tdap,Td Vaccine (2 - Td or Tdap) [facility] Comment on above: Postponed from 10/03/2022 (Declined at t his time) Start: 05-23-2024 End: 05-23-2024 Patient encounter procedure 05/23/2024 3:15 PM EST Office Visit Pulmonary Medicine [address] [place] [address] Elle Boone MD [address] [facility] [place] [address] Shortness of breath [R06.02] Pulmonary Medicine Comment on above: Shortness of breath [R06.02] Start: 05-23-2024 End: 05-23-2024 ambulatory 05/23/2024 2:45 PM EST Procedure PULM LAB [facility] [address] [facility] [place] [address] [facility], Pulm Lab [facility] [address] [place] [address] Shortness of breath [R06.02] PULM LAB [facility] Comment on above: Shortness of breath [R06.02] Start: 04-28-2024 End: 04-28-2024 Patient encounter procedure 04/28/2024 11:20 AM EST Office Visit Internal [facility] [place] [address] [facility] [place] [address] Caryn Lowery APRN.INSTRUMENT REPAIRER HELPER [address] [place] [address] Medication follow up up [facility] [place] Comment on above: Medication follow up up Start: 04-17-2024 End: 04-17-2024 Patient encounter procedure 04/17/2024 1:30 PM EST Office Visit Pulmonary Medicine [address] [place] [address] Elle Boone MD [address] [place] [address] Shortness of breath [R06.02] Pulmonary Medicine Comment on above: Shortness of breath [R06.02] Start: 04-17-2024 End: 04-17-2024 ambulatory 04/17/2024 1:00 PM EST Procedure PULM LAB [facility] [address] [place] [address] Wstr, Pulm Lab [facility] [address] [place] [address] Shortness of breath [R06.02] PULM LAB [facility] Comment on above: Shortness of breath [R06.02] Start: 04-12-2024 Annual PCP Team Chronic Disease Visit Annual PCP Team Chronic Disease Visit [facility] Start: 04-05-2024 Hemoglobin A1c measurement HbA1C [facility] Start: 03-15-2024 End: 03-15-2024 Patient encounter procedure 03/15/2024 2:20 PM EDT Office Visit Internal [facility] [place] [address] [place] [address] Caryn Lowery APRN.INSTRUMENT REPAIRER HELPER [address] [place] [address] 6 week follow up [facility] [place] Comment on above: 6 week follow up Start: 03-03-2024 Annual PCP Team Chronic Disease Visit Annual PCP Team Chronic Disease Visit [facility] Start: 03-03-2024 BP Controlled (<130/80) BP Controlled (<130/80) [facility] Start: 02-29-2024 End: 02-29-2024 Patient encounter procedure 02/29/2024 1:40 PM EDT Appointment Cat Scan [address] [place] [address] Shortness of breath [R06.02] [facility] Comment on above: Shortness of breath [R06.02] Start: 02-29-2024 End: 02-29-2024 Patient encounter procedure 02/29/2024 8:40 AM EDT Appointment Cat Scan [address] [place] [address] Shortness of breath [R06.02] [facility] Comment on above: Shortness of breath [R06.02] Start: 02-26-2024 Hepatitis B surface antibody level LDL Cholesterol [facility] Start: 02-25-2024 End: 05-26-2024 A. FUMIGATUS AB, IGG [facility] Comment on above: Expected: 02/25/2024, Expires: Start: 02-25-2024 End: 05-26-2024 Aspergillus fumigatus IgE Ab [Units/volume] in Serum [facility] Comment on above: Expected: 02/25/2024, Expires: Start: 02-25-2024 End: 05-26-2024 CBC W Auto Differential panel - Blood [facility] Work Phone: Comment on above: Expected: 02/25/2024, Expires: Start: 02-25-2024 End: 05-26-2024 IgE [Units/volume] in Serum or Plasma [facility] Comment on above: Expected: 02/25/2024, Expires: Start: 02-21-2024 End: 02-21-2024 Patient encounter procedure 02/21/2024 2:30 PM EDT Office Visit Orthopaedics [address] [place] [address] Duran Blunt MD [address] [place] [address] Right knee pain Orthopaedics Comment on above: Right knee pain Start: 02-02-2024 End: 02-02-2024 Patient encounter procedure 02/02/2024 12:20 PM EDT Office Visit Internal Medicine [place] [address] [place] [address] Caryn Lowery APRN.INSTRUMENT REPAIRER HELPER [address] [place] [address] 4 week follow up [facility] [place] Comment on above: 4 week follow up Start: 01-31-2024 End: 01-31-2024 Patient encounter procedure 01/31/2024 2:00 PM EDT Office Visit Orthopaedics [address] [place] [address] Duran Blunt MD [address] [place] [address] Right knee pain Orthopaedics Comment on above: Right knee pain Start: 01-24-2024 End: 01-24-2024 Patient encounter procedure Orthopaedics Comment on above: Right knee pain Right knee pain, uns pecified chronicity [M25.561] Start: 01-21-2024 End: 04-21-2024 Basic metabolic 2000 panel - Serum or Plasma [facility] Work Phone: Comment on above: Expected: 01/21/2024, Expires: Start: 01-16-2024 Covid-19 Vaccine ( season) Covid-19 Vaccine () [facility] Start: 01-16-2024 [facility] Start: 01-03-2024 End: 04-03-2024 Basic metabolic 2000 panel - Serum or Plasma [facility] Comment on above: Expected: 01/03/2024, Expires: 4 Start: 01-03-2024 End: 04-03-2024 Magnesium [Mass/volume] in Serum or Plasma [facility] Comment on above: Expected: 01/03/2024, Expires: 4 Start: 01-03-2024 End: 04-03-2024 Natriuretic peptide.B prohormone N-Terminal [Mass/volume] in Serum or Plasma [facility] Work Phone: Comment on above: Expected: 01/03/2024, Expires: Start: 01-03-2024 End: 01-03-2024 Patient encounter procedure 01/03/2024 1:00 PM EDT Office Visit [facility] [place] [address] [facility] [place] [address] Caryn Lowery APRN.INSTRUMENT REPAIRER HELPER [address] [facility] [place] [id number] 4 week follow up [facility] [place] Comment on above: 4 week follow up Start: 01-01-2024 ANNUAL PCP TEAM CHRONIC DISEASE VISIT ANNUAL PCP TEAM CHRONIC DISEASE VISIT [facility] Start: 12-15-2023 ANNUAL PCP TEAM CHRONIC DISEASE VISIT ANNUAL PCP TEAM CHRONIC DISEASE VISIT [facility] Start: 12-15-2023 BP CONTROLLED (<130/80) BP CONTROLLED (<130/80) [facility] Start: 12-03-2023 End: 12-03-2023 Patient encounter procedure 12/03/2023 1:40 PM EDT Office Visit [facility] [place] [address] [facility] [place] [address] Caryn Lowery APRN.INSTRUMENT REPAIRER HELPER [address] [facility], [place] [address] 2 week follow up [facility] [place] Comment on above: 2 week follow up Start: 11-29-2023 Hemoglobin A1c measurement HbA1C [facility] Start: 11-24-2023 ANNUAL PCP TEAM CHRONIC DISEASE VISIT ANNUAL PCP TEAM CHRONIC DISEASE VISIT [facility] Start: 11-24-2023 BP CONTROLLED (<130/80) BP CONTROLLED (<130/80) [facility] Start: 11-23-2023 End: 02-22-2024 SYPHILIS TOTAL W/REFLEX SYPHILIS TOTAL W/REFLEX Lab Routine STD exposure Expected: 11/23/2023, Expires: 02/22/2024 [facility] Work Phone: Comment on above: Expected: 11/23/2023, Expires: Start: 11-23-2023 End: 11-23-2023 Patient encounter procedure 11/23/2023 1:30 PM EDT Appointment [facility] [address] [place] [address] Epigastric pain [R10.13] [facility] Comment on above: Epigastric pain [R10.13] Start: 11-15-2023 End: 02-14-2024 Bacteria identified in Urine by Culture [facility] Comment on above: Expected: 11/15/2023, Expires: Start: 11-15-2023 End: 11-15-2023 Patient encounter procedure 11/15/2023 1:20 PM EDT Office Visit [facility] [place] [address] [place], [place] [address] Caryn Lowery APRN.INSTRUMENT REPAIRER HELPER [address] [place], [place] [address] Follow up [facility] [place] Comment on above: Follow up Start: 10-29-2023 End: 10-29-2023 Patient encounter procedure 10/29/2023 2:20 PM EDT Office Visit [facility] [place] [address] [place] [address] Caryn Lowery, PHARMACEUTICAL PROCESS ENGINEER.INSTRUMENT REPAIRER HELPER [address] [place], [place] [id number] 2 week follow up [facility] [place] Comment on above: 2 week follow up Start: 10-15-2023 End: 01-14-2024 CBC W Auto Differential panel - Blood CBC + DIFF Lab Routine Essential hypertension Controlled type 2 diabetes mellitus without complication, without long-term current use of insulin (HCC) Expected: 10/15/2023 (Approximate), Expires: 01/14/2024 [facility] Work Phone: Comment on above: Expected: 10/15/2023 (Approximate), Expi res: 01/14/2024 Start: 10-15-2023 End: 01-14-2024 Comprehensive metabolic 2000 panel - Serum or Plasma COMP METABOLIC PANEL Lab Routine Other hyperlipidemia Essential hypertension Controlled type 2 diabetes mellitus without complication, without long-term current use of insulin (HCC) Expected: 10/15/2023 (Approximate), Expires: 01/14/2024 [facility] Work Phone: Comment on above: Expected: 10/15/2023 (Approximate), Expi res: 01/14/2024 Start: 10-15-2023 End: 01-14-2024 Hemoglobin A1c in Blood HGB A1C Lab Routine Controlled type 2 diabetes mellitus without complication, without long-term current use of insulin (HCC) Expected: 10/15/2023 (Approximate), Expires: 01/14/2024 [facility] Work Phone: Comment on above: Expected: 10/15/2023 (Approximate), Expi res: 01/14/2024 Start: 10-15-2023 End: 01-14-2024 Lipid 1996 panel - Serum or Plasma LIPID PANEL BASIC Lab Routine Other hyperlipidemia Expected: 10/15/2023 (Approximate), Expires: 01/14/2024 [facility] Work Phone: Comment on above: Expected: 10/15/2023 (Approximate), Expi res: 01/14/2024 Start: 10-15-2023 End: 01-14-2024 Thyrotropin [Units/volume] in Serum or Plasma TSH BLD Lab Routine Hypothyroidism, unspecified type Expected: 10/15/2023 (Approximate), Expires: 01/14/2024 [facility] Work Phone: Comment on above: Expected: 10/15/2023 (Approximate), Expi res: 01/14/2024 Start: 10-13-2023 End: 01-12-2024 HIV 1+2 Ab [Presence] in Serum or Plasma by Immunoassay [facility] Comment on above: Expected: 10/13/2023, Expires: Start: 10-13-2023 End: 01-12-2024 SYPHILIS TOTAL W/REFLEX [facility] Work Phone: Comment on above: Expected: 10/13/2023, Expires: Start: 08-27-2023 Hemoglobin A1c/Hemoglobin.total in Blood HbA1C [facility] Start: 08-25-2023 ANNUAL PCP TEAM CHRONIC DISEASE VISIT ANNUAL PCP TEAM CHRONIC DISEASE VISIT [facility] Start: 08-25-2023 BP CONTROLLED (<130/80) BP CONTROLLED (<130/80) [facility] in Start: 07-18-2023 ANNUAL PCP TEAM CHRONIC DISEASE VISIT ANNUAL PCP TEAM CHRONIC DISEASE VISIT [facility] Start: 06-30-2023 End: 07-14-2023 COVID & INFLUENZA A/B & RSV NAAT, ROUTINE COVID & INFLUENZA A/B & RSV NAAT, ROUTINE Microbiology Routine URI, acute Expected: 06/30/2023, Expires: 07/14/2023 [facility] Work Phone: Comment on above: Expected: 06/30/2023, Expires: Start: 06-03-2023 BP CONTROLLED (<130/80) BP CONTROLLED (<130/80) [facility] Start: 05-26-2023 Hemoglobin A1c/Hemoglobin.total in Blood HBA1C [facility] Start: 05-25-2023 ANNUAL PCP TEAM CHRONIC DISEASE VISIT ANNUAL PCP TEAM CHRONIC DISEASE VISIT [facility] Start: 05-25-2023 BP CONTROLLED (<130/80) BP CONTROLLED (<130/80) [facility] Start: 05-17-2023 Depression Assessment Depression Assessment [facility] Start: 05-03-2023 Anes dx/ther nerve block/injection prone pos ANESTH N BLOCK/INJ PRONE [facility] Start: 05-03-2023 Njx dx/ther sbst intrlmnr lmbr/sac w/img gdn NJX INTERLAMINAR LMBR/SAC [facility] Start: 05-03-2023 Fluoroscopic guidance O.R. Fluoro for C-Arm [facility] Start: 05-03-2023 Radiography of spine [facility] Start: 05-03-2023 Patient discharge [facility] Start: 04-15-2023 ANNUAL PCP TEAM CHRONIC DISEASE VISIT ANNUAL PCP TEAM CHRONIC DISEASE VISIT [facility] Start: 04-15-2023 BP CONTROLLED (<130/80) BP CONTROLLED (<130/80) [facility] Start: 04-08-2023 ANNUAL PCP TEAM CHRONIC DISEASE VISIT ANNUAL PCP TEAM CHRONIC DISEASE VISIT [facility] Start: 03-25-2023 ANNUAL PCP TEAM CHRONIC DISEASE VISIT ANNUAL PCP TEAM CHRONIC DISEASE VISIT [facility] Start: 03-25-2023 BP CONTROLLED (<130/80) BP CONTROLLED (<130/80) [facility] Start: 03-10-2023 Hepatitis B surface antibody level LDL CHOLESTEROL [facility] Start: 02-23-2023 End: 04-25-2023 CBC W Auto Differential panel - Blood CBC + DIFF Lab Routine Controlled type 2 diabetes mellitus without complication, without long-term current use of insulin (HCC) Expected: 02/23/2023 (Approximate), Expires: 04/25/2023 [facility] Work Phone: Comment on above: Expected: 02/23/2023 (Approximate), Expi res: 04/25/2023 Start: 02-23-2023 End: 04-25-2023 Comprehensive metabolic 2000 panel - Serum or Plasma COMP METABOLIC PANEL Lab Routine Other hyperlipidemia Controlled type 2 diabetes mellitus without complication, without long-term current use of insulin (HCC) Expected: 02/23/2023 (Approximate), Expires: 04/25/2023 [facility] Work Phone: Comment on above: Expected: 02/23/2023 (Approximate), Expi res: 04/25/2023 Start: 02-23-2023 End: 04-25-2023 Hemoglobin A1c in Blood HGB A1C Lab Routine Controlled type 2 diabetes mellitus without complication, without long-term current use of insulin (HCC) Expected: 02/23/2023 (Approximate), Expires: 04/25/2023 [facility] Work Phone: Comment on above: Expected: 02/23/2023 (Approximate), Expi res: 04/25/2023 Start: 02-23-2023 End: 04-25-2023 Lipid 1996 panel - Serum or Plasma LIPID PANEL BASIC Lab Routine Other hyperlipidemia Expected: 02/23/2023 (Approximate), Expires: 04/25/2023 [facility] Work Phone: Comment on above: Expected: 02/23/2023 (Approximate), Expi res: 04/25/2023 Start: 02-23-2023 End: 04-25-2023 Thyrotropin [Units/volume] in Serum or Plasma TSH BLD Lab Routine Hypothyroidism, unspecified type Expected: 02/23/2023 (Approximate), Expires: 04/25/2023 [facility] Work Phone: Comment on above: Expected: 02/23/2023 (Approximate), Expi res: 04/25/2023 Start: 02-20-2023 ANNUAL PCP TEAM CHRONIC DISEASE VISIT ANNUAL PCP TEAM CHRONIC DISEASE VISIT [facility] Start: 02-15-2023 Anes dx/ther nerve block/injection prone pos ANESTH N BLOCK/INJ PRONE [facility] Start: 02-15-2023 Njx dx/ther agt pvrt facet jt lmbr/sac 1 level INJ PARAVERT F JNT L/S 1 [facility] Start: 02-15-2023 Njx dx/ther agt pvrt facet jt lmbr/sac 2nd level INJ PARAVERT F JNT L/S 2 [facility] Start: 02-15-2023 Injection of facet joint [facility] Start: 02-15-2023 Injection of spinal epidural space [facility] Start: 02-15-2023 X-ray of lumbosacral spine L/S Spine Min 4 Views [facility] Start: 02-15-2023 Patient discharge [facility] Start: 01-23-2023 ANNUAL PCP TEAM CHRONIC DISEASE VISIT ANNUAL PCP TEAM CHRONIC DISEASE VISIT [facility] Start: 01-23-2023 BP CONTROLLED (<130/80) BP CONTROLLED (<130/80) [facility] in Start: 01-15-2023 Influenza vaccination [facility] Start: 2023 COLOGUARD (FIT-DNA) COLOGUARD (FIT-DNA) [facility] Start: [address] COLONOGRAPHY [facility] Start: 2023 FECAL OCCULT BLOOD FECAL OCCULT BLOOD [facility] Start: 2023 Screening for malignant neoplasm of colon [facility] Start: 2023 SIGMOIDOSCOPY SIGMOIDOSCOPY [facility] Start: 01-04-2023 Anes dx/ther nerve block/injection prone pos ANESTH N BLOCK/INJ PRONE [facility] Start: 01-04-2023 Njx dx/ther sbst intrlmnr lmbr/sac w/img gdn NJX INTERLAMINAR LMBR/SAC [facility] Start: 01-04-2023 Injection using fluoroscopic guidance [facility] Start: 01-04-2023 Patient discharge [facility] Start: 12-22-2022 ANNUAL PCP TEAM CHRONIC DISEASE VISIT ANNUAL PCP TEAM CHRONIC DISEASE VISIT [facility] Start: 12-19-2022 BP CONTROLLED (<130/80) BP CONTROLLED (<130/80) [facility] in Start: 12-10-2022 Hemoglobin A1c/Hemoglobin.total in Blood HBA1C [facility] Start: 10-20-2022 ANNUAL PCP TEAM CHRONIC DISEASE VISIT ANNUAL PCP TEAM CHRONIC DISEASE VISIT [facility] Start: 10-20-2022 BP CONTROLLED (<130/80) BP CONTROLLED (<130/80) [facility] in Start: 10-09-2022 Hepatitis B surface antibody level LDL CHOLESTEROL [facility] Start: 10-03-2022 Urine microalbumin profile [facility] Start: 09-08-2022 Hemoglobin A1c/Hemoglobin.total in Blood HBA1C [facility] Start: 08-24-2022 End: 10-24-2022 Magnesium [Mass/volume] in Serum or Plasma [facility] Work Phone: Comment on above: Expected: 08/24/2022, Expires: 3 Start: 08-24-2022 End: 10-24-2022 Thyrotropin [Units/volume] in Serum or Plasma [facility] Work Phone: Comment on above: Expected: 08/24/2022, Expires: 3 Start: 08-24-2022 End: 10-24-2022 Thyroxine (T4) free [Mass/volume] in Serum or Plasma [facility] Work Phone: Comment on above: Expected: 08/24/2022, Expires: 3 Start: 08-24-2022 End: 10-24-2022 Triiodothyronine (T3) [Mass/volume] in Serum or Plasma [facility] Work Phone: Comment on above: Expected: 08/24/2022, Expires: 3 Start: 08-03-2022 Injection of spinal epidural space [facility] Start: 08-03-2022 Injection using fluoroscopic guidance [facility] Start: 08-03-2022 Patient discharge [facility] Start: 07-23-2022 Hemoglobin A1c/Hemoglobin.total in Blood HBA1C [facility] Start: 07-17-2022 End: 09-16-2022 CBC W Auto Differential panel - Blood [facility] Work Phone: Comment on above: Expected: 07/17/2022, Expires: 3 Start: 07-17-2022 End: 09-16-2022 Comprehensive metabolic 2000 panel - Serum or Plasma [facility] Work Phone: Comment on above: Expected: 07/17/2022, Expires: 3 Start: 07-16-2022 BP CONTROLLED (<130/80) BP CONTROLLED (<130/80) [facility] inic Start: 07-03-2022 ANNUAL PCP TEAM CHRONIC DISEASE VISIT ANNUAL PCP TEAM CHRONIC DISEASE VISIT [facility] Start: 07-03-2022 COVID-19 VACCINE (#1) COVID-19 VACCINE (#1) [facility] Comment on above: Postponed from 1983 (Declined at t his time) Postponed from 07/12 (Declined at this time) Start: 07-03-2022 COVID-19 VACCINE (1) COVID-19 VACCINE (1) [facility] Comment on above: Postponed from 1983 (Declined at t his time) Start: 07-03-2022 SPIROMETRY SPIROMETRY [facility] Comment on above: Postponed from 01/10/1996 (Declined at t his time) Start: 05-25-2022 End: 07-25-2022 CBC W Auto Differential panel - Blood CBC + DIFF Lab Routine Epigastric pain Decreased appetite Nausea Dizziness Expected: 05/25/2022, Expires: 07/25/2022 [facility] Work Phone: Comment on above: Expected: 05/25/2022, Expires: 3 Start: 05-25-2022 End: 07-25-2022 Comprehensive metabolic 2000 panel - Serum or Plasma COMP METABOLIC PANEL Lab Routine Epigastric pain Decreased appetite Nausea Dizziness Expected: 05/25/2022, Expires: 07/25/2022 [facility] Work Phone: Comment on above: Expected: 05/25/2022, Expires: 3 Start: 05-25-2022 End: 07-25-2022 Hemoglobin A1c in Blood HGB A1C Lab Routine Controlled type 2 diabetes mellitus without complication, without long-term current use of insulin (HCC) Expected: 05/25/2022, Expires: 07/25/2022 [facility] Work Phone: Comment on above: Expected: 05/25/2022, Expires: 3 Start: 05-17-2022 DEPRESSION ASSESSMENT DEPRESSION ASSESSMENT [facility] Start: 03-25-2022 End: 05-25-2022 Amylase [Enzymatic activity/volume] in Serum or Plasma AMYLASE BLD Lab Routine RUQ pain Nausea Epigastric pain Diarrhea, unspecified type Expected: 03/25/2022, Expires: 05/25/2022 [facility] Work Phone: Comment on above: Expected: 03/25/2022, Expires: 3 Start: 03-25-2022 End: 05-25-2022 CBC W Auto Differential panel - Blood CBC + DIFF Lab Routine RUQ pain Epigastric pain Diarrhea, unspecified type Expected: 03/25/2022, Expires: 05/25/2022 [facility] Work Phone: Comment on above: Expected: 03/25/2022, Expires: 3 Start: 03-25-2022 End: 05-25-2022 Comprehensive metabolic 2000 panel - Serum or Plasma COMP METABOLIC PANEL Lab Routine RUQ pain Nausea Epigastric pain Diarrhea, unspecified type Expected: 03/25/2022, Expires: 05/25/2022 [facility] Work Phone: Comment on above: Expected: 03/25/2022, Expires: 3 Start: 03-25-2022 End: 05-25-2022 Lipase [Enzymatic activity/volume] in Serum or Plasma LIPASE BLD Lab Routine RUQ pain Nausea Epigastric pain Diarrhea, unspecified type Expected: 03/25/2022, Expires: 05/25/2022 [facility] Work Phone: Comment on above: Expected: 03/25/2022, Expires: 3 Start: 03-02-2022 Colonoscopy COLONOSCOPY [facility] Start: 03-02-2022 COLORECTAL CANCER SCREENING COLORECTAL CANCER SCREENING [facility] Start: 03-02-2022 Screening for malignant neoplasm of colon [facility] Start: 02-20-2022 End: 04-22-2022 CBC W Auto Differential panel - Blood CBC + DIFF Lab Routine Controlled type 2 diabetes mellitus without complication, without long-term current use of insulin (HCC) Expected: 02/20/2022, Expires: 04/22/2022 [facility] Work Phone: Comment on above: Expected: 02/20/2022, Expires: 2 Start: 02-20-2022 End: 04-22-2022 Comprehensive metabolic 2000 panel - Serum or Plasma COMP METABOLIC PANEL Lab Routine Controlled type 2 diabetes mellitus without complication, without long-term current use of insulin (HCC) Other hyperlipidemia Expected: 02/20/2022, Expires: 04/22/2022 [facility] Work Phone: Comment on above: Expected: 02/20/2022, Expires: 2 Start: 02-20-2022 End: 04-22-2022 Hemoglobin A1c in Blood HGB A1C Lab Routine Controlled type 2 diabetes mellitus without complication, without long-term current use of insulin (HCC) Expected: 02/20/2022, Expires: 04/22/2022 [facility] Work Phone: Comment on above: Expected: 02/20/2022, Expires: 2 Start: 02-20-2022 End: 04-22-2022 Lipid 1996 panel - Serum or Plasma LIPID PANEL BASIC Lab Routine Other hyperlipidemia Expected: 02/20/2022, Expires: 04/22/2022 [facility] Work Phone: Comment on above: Expected: 02/20/2022, Expires: 2 Start: 02-20-2022 End: 04-22-2022 Thyrotropin [Units/volume] in Serum or Plasma TSH BLD Lab Routine Hypothyroidism, unspecified type Expected: 02/20/2022, Expires: 04/22/2022 [facility] Work Phone: Comment on above: Expected: 02/20/2022, Expires: 2 Start: 01-15-2022 Influenza vaccination [facility] Start: 12-31-2021 Hemoglobin A1c/Hemoglobin.total in Blood HBA1C [facility] Start: 11-11-2021 Adult depression screening assessment DEPRESSION SCREENING [facility] Start: 10-15-2021 Hepatitis B surface antibody level LDL CHOLESTEROL [facility] Start: 10-07-2021 End: 12-07-2021 SCHEDULE LAB TESTING SCHEDULE LAB TESTING Lab Routine Expected: 10/07/2021, Expires: 12/07/2021 [facility] Work Phone: Comment on above: Expected: 10/07/2021, Expires: 2 Start: 05-17-2021 DEPRESSION ASSESSMENT DEPRESSION ASSESSMENT [facility] Start: 04-23-2021 Pneumococcal vaccination Pneumococcal Vaccine (2 - PPSV23 or PCV20) [facility] Start: 01-10-2020 PAP TESTING PAP TESTING [facility] Start: 2018 Mammography [facility] Start: 2018 Screening for malignant neoplasm of breast Mammogram Screening [facility] Start: 08-23-2013 HPV TESTING HPV TESTING [facility] Start: 08-23-2013 PAP TESTING PAP TESTING [facility] Start: 08-23-2013 Screening for malignant neoplasm of cervix Cervical Cancer Screening [facility] Start: 01-10-2008 Zoledronic acid therapy ALPHA-1 ANTITRYPSIN DEFICIENCY SCREENING [facility] Start: 1997 HEPATITIS B (1 of 3 - Risk 3-dose series) HEPATITIS B (1 of 3 - Risk 3-dose series) [facility] Start: 1997 Hepatitis B Vaccine (1 of 3 - 19+ 3-dose series) Hepatitis B Vaccine (1 of 3 - 19+ 3-dose series) [facility] Start: 01-10-1996 BP CONTROLLED (<130/80) BP CONTROLLED (<130/80) [facility] in Start: 01-10-1996 Depression Screening Depression Screening [facility] Start: 01-10-1996 SPIROMETRY SPIROMETRY [facility] Start: 01-10-1984 PNEUMOCOCCAL (1 - PCV) PNEUMOCOCCAL (1 - PCV) [facility] Start: 1978 COVID-19 VACCINE (#1) COVID-19 VACCINE (#1) [facility] Start: 1978 HEPATITIS B (1 of 3 - 3-dose series) HEPATITIS B (1 of 3 - 3-dose series) [facility] Start: 1978 Hepatitis B Vaccine (1 of 3 - 3-dose series) Hepatitis B Vaccine (1 of 3 - 3-dose series) [facility] Bacteria identified in Unspecified specimen by Respiratory culture RESPIRATORY CULTURE AND STAIN Microbiology Routine Shortness of breath Cough, unspecified type Wheezing Low O2 saturation Ordered: 02/17/2024 [facility] Work Phone: Comment on above: Ordered: 02/17/2024 Bacteria identified in Wound by Culture ABSCESS AND WOUND CULTURE WITH GRAM STAIN Microbiology Routine Boil Ordered: 04/01/2024 [facility] Work Phone: Comment on above: Ordered: 04/01/2024 C reactive protein [Mass/volume] in Serum or Plasma [facility] CBC W Auto Different ial panel - Blood [facility] Celiac disease screen [facility] Chlamydia trachomatis+Neisseria gonorrhoeae DNA [Presence] in Unspecified specimen by PREETI with probe detection GONORRHEA/CHLAMYDIA NAAT Lab Routine STD exposure 10/13/2023 12:16 PM EDT [facility] Clostridioides diffi cile toxin genes [Presence] in Stool by PREETI with probe detection C. DIFFICILE PCR Lab Routine Epigastric pain Vomiting and diarrhea 11/15/2023 9:56 PM EDT [facility] End: 06-17-2023 COLONOSCOPY DIAGNOSTIC COLONOSCOPY DIAGNOSTIC Endoscopy Routine Rectal bleeding Diarrhea, unspecified type 1 Occurrences starting 06/17/2022 until 06/17/2023 [facility] Work Phone: Comment on above: 1 Occurrences starting 06/17/2022 until 06/17/2023 COVID & INFLUENZA A/ B & RSV PCR, ROUTINE COVID & INFLUENZA A/B & RSV PCR, ROUTINE Microbiology Routine Shortness of breath Cough, unspecified type Wheezing Malaise 02/02/2024 12:57 PM EDT [facility] End: 05-08-2023 Ct abdomen & pelvis w/contrast material CT ABD/PEL W IVCON Radiology STAT Left lower quadrant abdominal pain 1 Occurrences starting 04/08/2022 until 05/08/2023 [facility] Work Phone: Comment on above: 1 Occurrences starting 04/08/2022 until 05/08/2023 End: 03-18-2025 CT Chest W contrast IV CT CHEST W IVCON Radiology Routine Shortness of breath Cough, unspecified type Wheezing Low O2 saturation 1 Occurrences starting 02/17/2024 until 03/18/2025 [facility] Comment on above: 1 Occurrences starting 02/17/2024 until 03/18/2025 CT Chest W contrast IV CT CHEST W IVCON Radiology Routine Shortness of breath Cough, unspecified type Wheezing Low O2 saturation 02/29/2024 2:25 PM EDT [facility] Work Phone: End: 02-03-2025 CTA Pulmonary arteries for pulmonary embolus W contrast IV CT CHEST W IVCON PE Radiology STAT Chest pain, unspecified type Shortness of breath Palpitations Elevated d-dimer 1 Occurrences starting 01/05/2024 until 02/03/2025 [facility] Work Phone: Comment on above: 1 Occurrences starting 01/05/2024 until 02/03/2025 End: 11-10-2025 CTA Pulmonary arteries for pulmonary embolus W contrast IV CTA CHEST (NONGATED) W IVCON PE Radiology STAT Chest pain, unspecified type SOB (shortness of breath) Elevated d-dimer 1 Occurrences starting 10/11/2024 until 11/10/2025 [facility] Work Phone: Comment on above: 1 Occurrences starting 10/11/2024 until 11/10/2025 End: 12-30-2024 DBT Breast - bilateral screening JET SCREENING [facility] Radiology Routine Encounter for screening mammogram for breast cancer 1 Occurrences starting 12/01/2023 until 12/30/2024 [facility] Work Phone: Comment on above: 1 Occurrences starting 12/01/2023 until 12/30/2024 End: 11-30-2025 DBT Breast - bilateral screening JET SCREENING [facility] Radiology Routine Encounter for screening mammogram for breast cancer 1 Occurrences starting 10/31/2024 until 11/30/2025 [facility] Work Phone: Comment on above: 1 Occurrences starting 10/31/2024 until 11/30/2025 End: 08-25-2023 Echocardiography ECHO Cardiology Routine Shortness of breath Chest pain, unspecified type 1 Occurrences starting 08/24/2022 until 08/25/2023 [facility] Work Phone: Comment on above: 1 Occurrences starting 08/24/2022 until 08/25/2023 End: 06-03-2023 EGD DIAGNOSTIC EGD DIAGNOSTIC Endoscopy Routine Nausea Epigastric pain Decreased appetite 1 Occurrences starting 06/03/2022 until 06/03/2023 [facility] Work Phone: Comment on above: 1 Occurrences starting 06/03/2022 until 06/03/2023 End: 06-17-2023 EGD DIAGNOSTIC EGD DIAGNOSTIC Endoscopy Routine Epigastric pain Nausea and vomiting, unspecified vomiting type 1 Occurrences starting 06/17/2022 until 06/17/2023 [facility] Work Phone: Comment on above: 1 Occurrences starting 06/17/2022 until 06/17/2023 End: 03-07-2025 EMG(NEURO/NI) EMG(NEURO/NI) EMG Routine 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 right upper extremity 1 Occurrences starting 03/07/2024 until 03/07/2025 [facility] Work Phone: Comment on above: 1 Occurrences starting 03/07/2024 until 03/07/2025 ENTERIC BACTERIAL PA DIONTE BY PCR ENTERIC BACTERIAL PANEL BY PCR Lab Routine Epigastric pain Vomiting and diarrhea 11/16/2023 4:10 AM EDT [facility] Erythrocyte sediment ation rate [facility] EXTRA ECOFIX CONTAIN ER PERFORMABLE EXTRA ECOFIX CONTAINER PERFORMABLE Lab Routine Epigastric pain 11/16/2023 4:10 AM EDT [facility] Imaging of liver [facility] Immunoglobulin measurement [facility] LAB EXTRA TUBES LAB EXTRA TUBES Lab Routine Epigastric pain 11/16/2023 4:10 AM EDT [facility] Lactate dehydrogenas e measurement [facility] End: 01-29-2024 [facility] SCREENING JET SCREENING Radiology Routine Encounter for screening mammogram for breast cancer 1 Occurrences starting 12/30/2022 until 01/29/2024 [facility] Work Phone: Comment on above: 1 Occurrences starting 12/30/2022 until 01/29/2024 Measurement of respiratory function [facility] Patient referral [facility] Work Phone: Radionuclide gastric emptying study [facility] Radionuclide imaging of liver and/or biliary tract using radioactive isotope [facility] End: 02-27-2023 Screening mammography bi 2-view breast inc cad JET SCREENING Radiology Routine Encounter for screening mammogram for breast cancer 1 Occurrences starting 01/28/2022 until 02/27/2023 [facility] Work Phone: Comment on above: 1 Occurrences starting 01/28/2022 until 02/27/2023 Serum immunofixation [facility] US Abdomen limited [facility] End: 12-14-2024 US Abdomen RUQ US ABD RIGHT UPPER QUADRANT Radiology VICTORINO Epigastric pain Vomiting and diarrhea 1 Occurrences starting 11/15/2023 until 12/14/2024 [facility] Work Phone: Comment on above: 1 Occurrences starting 11/15/2023 until 12/14/2024 End: 04-24-2023 Us abdominal real time w/image limited US ABD RT UPPER QUADRANT Radiology Routine RUQ pain Nausea Epigastric pain Diarrhea, unspecified type 1 Occurrences starting 03/25/2022 until 04/24/2023 [facility] Work Phone: Comment on above: 1 Occurrences starting 03/25/2022 until 04/24/2023 End: 08-25-2023 US LEG VEIN DVT UNL VAS LAB US LEG VEIN DVT UNL VAS LAB Vascular Lab Routine Left leg swelling Left leg pain 1 Occurrences starting 08/24/2022 until 08/25/2023 [facility] Work Phone: Comment on above: 1 Occurrences starting 08/24/2022 until 08/25/2023 End: 03-03-2025 XR Chest PA and Lateral XR CHEST 2V FRONTAL/LAT Radiology Routine Shortness of breath Cough, unspecified type Wheezing Acute sinusitis, recurrence not specified, unspecified location 1 Occurrences starting 02/02/2024 until 03/03/2025 [facility] Work Phone: Comment on above: 1 Occurrences starting 02/02/2024 until 03/03/2025 End: 02-17-2025 XR Knee - right 4 Views XR KNEE GENERAL 4V AP BOTH/PA BOTH/LAT/MERC RIGHT Radiology Routine Right knee pain, unspecified chronicity 1 Occurrences starting 01/19/2024 until 02/17/2025 [facility] Work Phone: Comment on above: 1 Occurrences starting 01/19/2024 until 02/17/2025 [facility] Immunizations Immunization Date Immunization Notes Care Provider [facility] 04-28-2024 influenza, seasonal, injectable Caryn Older PHARMACEUTICAL PROCESS ENGINEER.INSTRUMENT REPAIRER HELPER Work Phone: [facility] 04-28-2024 pneumococcal conjuga te (PCV20) vaccine, 20 valent (PREVNAR 20) Caryn Older PHARMACEUTICAL PROCESS ENGINEER.INSTRUMENT REPAIRER HELPER Work Phone: [facility] 04-28-2024 pneumococcal Conjuga te, unspecified formulation Caryn Older PHARMACEUTICAL PROCESS ENGINEER.INSTRUMENT REPAIRER HELPER Work Phone: [facility] Work Phone: 04-28-2024 influenza virus vaccine, unspecified formulation Caryn Older PHARMACEUTICAL PROCESS ENGINEER.INSTRUMENT REPAIRER HELPER Work Phone: [facility] 06-02-2023 influenza, injectabl e, quadrivalent, contains preservative Babar Phillip MD Work Phone: [facility] 06-02-2023 influenza virus vaccine, unspecified formulation Caryn Older PHARMACEUTICAL PROCESS ENGINEER.INSTRUMENT REPAIRER HELPER Work Phone: [facility] 02-20-2022 influenza, injectabl e, quadrivalent, contains preservative Caryn Lowery PHARMACEUTICAL PROCESS ENGINEER.INSTRUMENT REPAIRER HELPER Work Phone: [facility] 02-20-2022 influenza virus vaccine, unspecified formulation Caryn Lowery PHARMACEUTICAL PROCESS ENGINEER.INSTRUMENT REPAIRER HELPER Work Phone: [facility] 02-26-2021 pneumococcal conjuga te vaccine, [address] Babar Phillip Work Phone: [facility] 02-16-2020 influenza, injectabl e, quadrivalent, contains preservative Duran Blunt MD Work Phone: [facility] 10-03-2012 tetanus toxoid, redu anne diphtheria toxoid, and acellular pertussis vaccine, adsorbed Duran Blunt MD Work Phone: [facility] Payers Date Payer Category Payer Self-pay [id number] 2022 Unknown [id number] 2017 Medicaid [place] [employer] [place] [employer] [id number] 2017-Present [phone] [place] [id number] Medicaid [id number] 2017 Medicaid [id number] 2008 Unknown [id number]. [id number] 2008 Unknown [facility] [id number] 1978 Unknown [id number] 1978 Unknown [id number] [id number] 1978 Unknown [id number] 1978 Unknown [id number] [id number] Unknown [id number] [id number] Unknown [id number] [id number] Unknown [id number] [id number] Unknown [id number] [id number] Unknown [id number] [id number] Unknown [id number] [id number] Unknown [id number] [id number] Unknown [id number] [id number] Unknown [id number] Social History Date Type Detail Facility Start: 05-17-1992 End: 02-21-2024 Tobacco smoking status IAIS Smokes tobacco daily [facility] Work Phone: Start: 05-17-1992 History of tobacco use Cigarette Smo ker [facility] Start: 11-12-2020 End: 08-25-2021 Alcohol intake Current drinker of alcohol (finding) [facility] Start: 03-22-2020 End: 02-14-2022 History SDOH Alcohol Frequency 2 [facility] Start: 03-22-2020 End: 02-14-2022 History SDOH Alcohol Std Drinks 1 [facility] Start: 03-31-2011 History SDOH Alcohol Comment Seldom- uses once every couple months [facility] Start: 04-25-2019 End: 03-22-2020 History SDOH Social Connections Phone 5 [facility] Start: 03-22-2020 End: 05-24-2022 History SDOH Social Connections [facility] 98 [facility] Start: 04-25-2019 History SDOH Social Connections Living 8 [facility] Start: 04-25-2019 End: 05-24-2022 History SDOH Physical Activity DPW 3 [facility] Start: 11-14-2019 Education 12 [facility] Start: 1980 Sex Assigned At Female C [facility] Start: 10-13-2020 End: 01-22-2022 Exposure to SARS-CoV-2 (event) Not sure [facility] Work Phone: Start: 10-10-2021 End: 10-20-2021 Exposure to SARS-CoV-2 (event) Unable to assess [facility] Start: 03-26-2017 End: 11-23-2022 Cigarettes smoked current (pack per day) - Reported 0.5 [facility] Start: 03-26-2017 End: 02-21-2024 Tobacco use and exposure Smokeless tobacco non-user [facility] Work Phone: Start: 02-19-2021 End: 07-14-2023 Tobacco smoking status Heavy tobacco smoker (finding) [facility] Sex Assigned At [facility] Start: 06-03-2022 End: 12-24-2024 Alcohol intake Ex-drinker (finding) [facility] Start: 07-27-2022 End: 05-13-2023 Tobacco smoking status IAIS Unknown if ever smoked [facility] Start: 12-13-2019 None [facility] Start: 05-24-2019 Spouse/ Signif icant Other [facility] Start: 12-22-2019 Cigarettes [facility] Start: 05-24-2022 End: 11-23-2022 Social connection and isolation panel [facility] Start: 04-17-2012 Frequency of Communication with Friends and Family Not on file [facility] (I/We) worried wheth er (my/our) food would run out before (I/we) got money to buy more. DK or Refused [facility] Start: 08-19-2018 Gender identity Identifies as female gender (finding) [facility] Start: 08-19-2018 Sexual orientation Heterosexual (marivel logan) [facility] Do you feel stress - tense, restless, nervous, or anxious, or unable to sleep at night because your mind is troubled all the time - these days [OSQ] To some extent [facility] Start: 08-19-2017 Occasional [facility] Do you belong to any clubs or organizations such as yazidism groups, unions, fraternal or athletic groups, or school groups? Yes [facility] How often to you hav e a drink containing alcohol? Monthly or less [facility] How many standard drinks containing alcohol do you have on a typical day? 1 or 2 [facility] (I/We) worried irma er (my/our) food would run out before (I/we) got money to buy more. Never true [facility] In the past 12 month s, was there a time when you were not able to pay the mortgage or rent on time? No [facility] Are you now , , , , never or living with a partner? Living with partner [facility] How often to you hav e a drink containing alcohol? Never [facility] How hard is it for y ou to pay for the very basics like food, housing, medical care, and heating Not very hard [facility] Do you feel stress - tense, restless, nervous, or anxious, or unable to sleep at night because your mind is troubled all the time - these days [OSQ] Rather much [facility] Start: 02-21-2024 Tobacco Comment 02/2024 - down to 5 or 6 per day [facility] Start: 12-09-2013 Sex Female (finding) [facility] NEGATED: Highlighted row [facility] Medical Equipment Procedure Code Equipment Code Equipment Original Text Equipment Identifier Dates [id number], [id number], [id number], [id number] Start: 05-22-2022 End: 07-29-2023 Comment on above: Test blood sugar(s) 4 times daily. Dx: Type 2 DM - Controlled E11.9 Insulin: No Test blood sugar(s) 4 times daily. Goals Date Patient Goal Desired Activity /State Functional Status Date Assessment Result Facility 01-04-2024 Functional Status Independent [facility] 01-04-2024 Functional Status Ambulation in [facility] 07-14-2023 Functional Status Standard Safet y ID band on, Allergy Band on, Call device within reach, Bed in low position, Wheels locked, Upper/Half-Length side-rails up, Bedside Cart Locked, Safety level maintained [facility] 01-11-2023 Functional Status Independent [facility] Micheal velasquez [facility] 10-26-2014 Are you deaf, or do you have serious difficulty hearing Yes 10/26/2014 12:38 PM Katie Gibbons MA Yes [facility] 10-26-2014 Are you blind, or do you have serious difficulty seeing, even when wearing glasses No 10/26/2014 12:38 PM Katie Gibbons MA No [facility] 10-26-2014 Do you have serious difficulty walking or climbing stairs No 10/26/2014 12:38 PM Katie Gibbons MA No [facility] 10-26-2014 Do you have difficul ty dressing or bathing No 10/26/2014 12:38 PM Katie Gibbons MA No [facility] 10-26-2014 Because of a physica l, mental, or emotional condition, do you have difficulty doing errands alone such as visiting a physician's office or shopping No 10/26/2014 12:38 PM Katie Gibbons MA No [facility] Mental Status Date Assessment Result Facility 01-04-2024 Mental Status Orientation Oriented x 4 [facility] 01-04-2024 Mental Status [facility] 07-14-2023 Mental Status Orientation Oriented x 4 [facility] 05-03-2023 Cognitive function Voice/Name [facility] Work Phone: 05-03-2023 Cognitive function Patient Orien tation Person;Place;Time [facility] Work Phone: 02-15-2023 Cognitive function Voice/Name [facility] Work Phone: 01-11-2023 Mental Status Oriented x 4 [facility] 01-04-2023 Cognitive function Voice/Name [facility] Work Phone: 08-03-2022 Cognitive function Voice/Name Dinah Marx [facility] Work Phone: 10-26-2014 Because of a physica l, mental, or emotional condition, do you have serious difficulty concentrating, remembering, or making decisions No 10/26/2014 12:38 PM EDT Katie Moon MA No [facility] Clinical Notes 02-23-2018 to 12-24-2024 Jazmyne Wyatt APRN.INSTRUMENT REPAIRER HELPER - 12/24/2024 3:02 PM EDTTelephone Encounter - [...] N-Acetaminophen], Propoxyphene, and Sulfa (Sulfonamide Antibiotics) MEDICATIONS eiadmkjv-oqrmcizsg-dljgwbnqihnqkn (CORTISPORIN) 3.5-10,000-1 mg/mL-unit/mL-% otic suspension Use 4 [...] Large kit 1 Each once daily. lancets (Diamond KineticsET SUPER THIN LANCETS) 30 gauge Test blood [...] 2:[address] Gary in the [place] office for further evaluation. - Advised to seek emergency care if fever or tachycardia develops, or if condition worsens prior to scheduled surgery consult. - Instructed to follow up with primary care provider as scheduled on Wednesday at 2:45 PM at scheduled. and Recording using Mobio software for draft documentation of the visit was discussed with the patient/authorized passenger relations representative; all questions welcomed and answered. Patient/authorized passenger relations representative agreed to proceed Differential Diagnoses - [...] Age of Onset: (Not Specified) Problem: other ([place]) Relation: Paternal Aunt Age of Onset: (Not [...] past 10 yrs. documented in this encounter [facility] 12-23-2024 Hospital Discharge instructions Patient Education [...] or higher after 2 days on antibiotics [id number] [employer]. [address] [place] [address], [place] [address]. All rights reserved. This information is not intended as a substitute for professional medical care. Always follow your healthcare professional's instructions. Follow Up Care 12/23/2024 17:28:37 With:BABAR PHILLIP MD Address: [address] [facility] [place] [id number]- When:2-4 days [facility] 12-23-2024 Note Discharge Instructions Thank you for allowing [facility] to assist you with your healthcare needs. The following is important discharge information regarding your hospital visit. Diagnosis from Today's Visit Cellulitis What to Do Next Instructions from Your Care Team No qualifying data available. Post Acute Orders No qualifying data available. You Need to Schedule the Following Appointments Follow Up with BABAR PHILLIP MD When:Within 2-4 days Where:[address] [place] [id number]- Allergies amoxicillin codeine penicillin sulfa drugs Medications [...] or higher after 2 days on antibiotics [phone] [employer]. [address] [place] [address]. All rights reserved. This information is not intended as a substitute for professional medical care. Always follow your healthcare professional's instructions. Additional Information VACCINATE! IT SAVES LIVES! Members of the community who have not yet received the COVID-19 vaccine and would like to receive it can visit one of [facility] vaccine clinics. There are many vaccine clinic locations within the [facility]. For locations and available times, please visit [email or web address] [email or web address] It is important to note that some COVID mobile vaccine clinics are held outdoors and may be canceled in rainy or stormy conditions. To learn more about pediatric vaccinations (ages 5-11), we invite you to visit the [facility] webpage. https://www.[facility].org/pa ges/0896-Dmyua-Fkpbfgpsvgq-Freque aslp-Niswy-Bptxfqzeu.html To learn more about the COVID-19 vaccine, we invite you to visit the CDC website for a list of frequently asked questions. https://www.cdc.gov/coronavirus/2 019-ncov/vaccines/faq.html [facility] Patient Portal Access Instructions: Stay connected with your healthcare team and access your personal medical information anytime with the [facility] Patient Portal. If you would like a full copy of your medical records please contact the [facility] Medical Records Department Wednesday through Wednesday between 8a.m. and 4:30p.m. Please follow the directions below to access the portal: 1.Access the email account you provided upon registration to the [facility].2.Look for an invitation email from [facility].3.Open the email and access the invitation link: Accept Invitation to [facility].Fill in the required brewster to create your account. Sign into www.[employer] with your username and password that you [...] you will allow to register on the [facility] Patient Portal for access to your information. You can also access the [facility] Patient Portal on the [employer] dominguez. Simply click on Health Records under Health Data and then click on the saambaa logo. HOW TO SAFELY DISPOSE OF PRESCRIPTION [...] Call your local pharmacy or go to [email or web address] to find one close to you.3.Make use of household items: Use cat litter or old coffee grounds to dispose medications if other options are not available. Mix your drugs with these household products, seal them in an airtight container and throw it into the garbage. Call [facility]: [phone] to be sure your drugs can be [...] aware that I should contact my doctor. Patient/Transformer Shop Supervisor Signature: Date/Time: Relationship to Patient: ____ Witness Name/Signature: Date/Time: [facility] Evelia Kelly 12-22-2024 Note [facility] 12-21-2024 Note [facility] 11-21-2024 Telephone encounter Note The patient [...] Dickey LPN November 21, 2024 1:10 PM [facility] 11-21-2024 Miscellaneous Notes The patient has [...] 2024 1:10 PM documented in this encounter [facility] 11-20-2024 Note [facility] 11-20-2024 History of Present illness Narrative [...] by mouth once daily. flash glucose sensor (ORDISSIMOSTYLE ANA PAULA 2 SENSOR) kit USE TO [...] Problems Paternal Grandfather Cancer Paternal Aunt other ([place]) Paternal Aunt Great aunt Colon Cancer No [...] Caryn Lowery APRN.CNP documented in this encounter [facility] 10-26-2024 Telephone encounter Note The patient [...] week. Discard Pen After Tete Gonzalez RN [facility] 10-26-2024 Miscellaneous Notes The patient has [...] Tete Gonzalez RN documented in this encounter [facility] 10-20-2024 Instructions Caryn Lowery APRN.JACINTA - 10/20/2024 11:50 AM EDT - Stop the second antibiotic that is causing stomach upset; you have already finished the Z-Dakota. - Continue taking naproxen as prescribed for your pulled muscle pain. - Begin the prescribed prednisone taper (prescription sent to [facility]) to reduce inflammation and help your breathing; [...] have new concerns. documented in this encounter [facility] 10-20-2024 Note [facility] 10-20-2024 History of Present illness Narrative CC: Patient presents with: Recheck: ER follow up HPI Darren Reinoso is a 44 year old female who presents today for Er follow up. Went to [facility] ER after having concerns of chest and shoulder pain with SOB cough and ill symptoms. Had elevated D-dimer as outpt. Sputum cx did show gram + bacteria so with symptoms did start treatment for possible pneumonia while waiting for other results. Recording using Mobio software for draft documentation of the visit was discussed with the patient/authorized passenger relations representative; all questions welcomed and answered. Patient/authorized passenger relations representative agreed to proceed Chest Pain and [...] min after dose flash glucose scanning reader (FREESTTOK.tv ANA PAULA 2 READER) 1 Each once [...] Problems Paternal Grandfather Cancer Paternal Aunt other ([place]) Paternal Aunt Great aunt Colon Cancer No [...] Screening Discontinued DATA REVIEWED: Outside chart from [facility] reviewed. Assessment/Plan 1. Chest pain, unspecified type [...] Caryn Lowery APRN.CNP documented in this encounter [facility] 10-17-2024 Instructions Charis Swan APRN.CNP - [...] drainage. - Consider following up with your crate maker to discuss additional treatment options, including injectables. We discussed your lung nodules: - You have small lung nodules that were previously identified. These are common and often benign, but we monitor them to ensure there are no changes. - A recent CT scan was performed at [facility]. We are requesting the images and [...] the CT scan images and report from [facility] for her to review. Please reach out if you have any new or worsening symptoms or additional questions. documented in this encounter [facility] 10-17-2024 History of Present illness Narrative Images from the original note were not included. Pulmonary Medicine Patients name: Darren Reinoso PCP: Babar Phillip MD Recording using ambient EnWave software for draft documentation of the visit was discussed with the patient/authorized passenger relations representative; all questions welcomed and answered. Patient/authorized passenger relations representative agreed to proceed CC: follow-up HPI: Darren Reinoso is a 44 year old female current smoker with PMH significant for serious obesity, anxiety, EAMON on CPAP, lung nodules, asthma, recurrent bronchitis and possible aspergillus infection. Pulm hx respiratory failure due to severe bronchiolitis from human metapneumovirus in 2017. Followed with pulm at [facility]. Previously treated ID for pulmonary aspergillus, [...] spray. Previously offered allergy shots but declined. DME:[facility] Supplemental O2 PRN PAST MEDICAL [...] 3.55 FEF50/FIF50 0.51 90-100 FIVC (L) 2.44 FKQ11-58 (L/sec) 1.75 1.60 2.77 4.22 63 Time [...] but declined. May want to discuss with crate maker again if symptoms not managed with oral [...] edited and updated as necessary. Charis Swan APRN.INSTRUMENT REPAIRER HELPER I spent a total of 46 minutes on the date of the service which included preparing to see the patient, wldi-gi-retr patient care, completing clinical documentation, performing a medically appropriate examination, counseling and educating the patient/family/caregiver, and ordering medications, tests, or procedures. documented in this encounter [facility] 10-17-2024 Note [facility] 10-15-2024 Hospital Discharge instructions Patient Education [...] care provider or pharmacist before using an brhd-ujk-xzuowzx cough medicine. You may use acetaminophen or [...] as directed by your health care provider [id number] [employer]. [address] [place] [address]. All rights reserved. This information is not intended as a substitute for professional medical care. Always follow your healthcare professional's instructions. Follow Up Care 10/14/2024 23:31:39 With:BABAR PHILLIP MD Address: [address] [place] [id number]- When:2-4 days [facility] 10-15-2024 Note Discharge Instructions Thank you for allowing [facility] to assist you with your healthcare needs. The following is important discharge information regarding your hospital visit. What to Do Next Instructions from Your Care Team No qualifying data available. Post Acute Orders No qualifying data available. You Need to Schedule the Following Appointments Follow Up with BABAR PHILLIP MD When:Within 2-4 days Where:[address] [facility] [place] [id number]- Allergies amoxicillin codeine penicillin sulfa drugs Medications [...] care provider or pharmacist before using an efjn-mpl-bmtduca cough medicine. You may use acetaminophen or [...] as directed by your health care provider [phone] [employer]. [address] [place] [address], [place] [address]. All rights reserved. This information is not intended as a substitute for professional medical care. Always follow your healthcare professional's instructions. Additional Information VACCINATE! IT SAVES LIVES! Members of the community who have not yet received the COVID-19 vaccine and would like to receive it can visit one of [facility] vaccine clinics. There are many vaccine clinic locations within the [facility]. For locations and available times, please visit [email or web address] ov/. It is important to note that some COVID mobile vaccine clinics are held outdoors and may be canceled in rainy or stormy conditions. To learn more about pediatric vaccinations (ages 5-11), we invite you to visit the [facility] webpage. https://www.[employer].org/pa ges/9453-Accbk-Zldesnkdxgd-Freque djpt-Zagnj-Ienasodja.html To learn more about the COVID-19 vaccine, we invite you to visit the CDC website for a list of frequently asked questions. https://www.cdc.gov/coronavirus/2 019-ncov/vaccines/faq.html [facility] Patient Portal Access Instructions: Stay connected with your healthcare team and access your personal medical information anytime with the [facility] Patient Portal. If you would like a full copy of your medical records please contact the [facility] Medical Records Department Wednesday through Wednesday between 8a.m. and 4:30p.m. Please follow the directions below to access the portal: 1.Access the email account you provided upon registration to the [facility].2.Look for an invitation email from [facility].3.Open the email and access the invitation link: Accept Invitation to [facility].Fill in the required brewster to create your account. Sign into www.[employer] with your username and password that you [...] you will allow to register on the [facility] Patient Portal for access to your information. You can also access the [facility] Patient Portal on the [employer] dominguez. Simply click on Health Records under Health Data and then click on the saambaa logo. HOW TO SAFELY DISPOSE OF PRESCRIPTION [...] Call your local pharmacy or go to [email or web address] [email or web address] to find one close to you.3.Make use of household items: Use cat litter or old coffee grounds to dispose medications if other options are not available. Mix your drugs with these household products, seal them in an airtight container and throw it into the garbage. Call [facility]: [phone] to be sure your drugs can be [...] aware that I should contact my doctor. Patient/Transformer Shop Supervisor Signature: Date/Time: Relationship to Patient: ____ Witness Name/Signature: Date/Time: [facility] 10-15-2024 Note Exam Date Time Procedure Performing Provider Status 10/15/24 1:[address] Angiography Chest w/ Contrast ERVIN SMILEY MD; Auth (Verified) [id number] ORIGINAL EXAMINATION: CTA OF THE CHEST 10/15/2024 [...] 10/15/2024 1:14:40 AM Ordering Provider: DAVID NGUYEN [facility]05-31-2025 Note* Exam Date Time Procedure Performing Provider Status 10/14/24 11:51 PM EKG [ED AOH] - CV DAVID NGUYEN MD ; Auth (Verified) ECG Final Report Sinus rhythm Electronic Signature: DAVID NGUYEN MD 10/15/2024 00:17:35 [facility]05-30-2025 Telephone encounter Note* Telephone Encounter - Katie Moon MA - 10/13/2024 3:45 PM EDT Patient notified. [facility]05-30-2025 Miscellaneous Notes* Telephone Encounter - Katie [...] you Caryn Lowery APRN.CNP documented in this encounterTrihealth [facility]hes[facility]05-30-2025 Telephone encounter Note * Telephone Encounter - Caryn Lowery APRN.CNP - 10/13/2024 3:38 PM EDT Preliminary results show gram positive bacteria. I am going to go ahead and treat her for possible respiratory infection with augmentin and zpack. As this can cause a yeast infection I am sending in diflucan as well Thank you Caryn Lowery APRN.CNP [facility]05-29-2025 Telephone encounter Note* Telephone Encounter - Katie Moon MA - 10/12/2024 11:36 AM EDT Tried calling patient, phone lines was static and unable to hear patient. Will call back once linesare working. [facility]05-29-2025 Telephone encounter Note* Telephone Encounter - [...] up appointment. Thank you Caryn Lowery APRN.JACINTA [facility]05-29-2025 Telephone encounter Note* Telephone Encounter - Kelli Rizo - 10/12/2024 9:11 AM EDT Spoke with patient and scheduled 10 business days out as patient has Medicaid replacement and requires 10 business days for authorization. Please advise. [facility]05-29-2025 NoteOhio[facility]05-29-2025 History of Present illness Narrative* Caryn Lowery APRN.JACINTA - 10/12/2024 7:41 AM EDT CC: Patient presents with: Recheck: Follow up headaches, B/L shoulder pain, back pain HPI Darren Reinoso is a 44 year old female who presents today for multiple concerns and complaints. Recording using Mobio software for draft documentation of the visit was discussed with the patient/authorized passenger relations representative; all questions welcomed and answered. Patient/authorized passenger relations representative agreed to proceed Chest Pressure and [...] Problems Paternal Grandfather Cancer Paternal Aunt other ([place]) Paternal Aunt Great aunt Colon Cancer No [...] plan. Caryn Lowery APRN.CNP documented in this encounterEvelyn Ville [address]-28-2025 Telephone encounter Note * Telephone Encounter - Caryn Lowery APRN.CNP - 10/11/2024 7:36 PM EDT D-dimer elevated. Ct of the chest ordered Thank you Caryn Lowery APRN.INSTRUMENT REPAIRER HELPER [facility]05-28-2025 History of Present illness Narrative* Ana [...] PATIENT PRESENTS WITH AN IMPLANTABLE OR ATTACHED ROOM SERVICE WAITER/WAITRESS: No RADIOLOGY DEPARTMENT: General X-ray: Exam(s) Completed: Chest X-Ray PERIPHERAL IV DATA: Not applicable SIGNED BY: RT Luis(R) October 11, 2024 12:13 PM documented in this encounterTrihealth [facility]hes[facility]05-28-2025 NoteOhio[facility]03-13-2025 NoteOhio[facility]03-13-2025 History of Present illness Narrative* Caryn [...] min after dose flash glucose scanning reader (Soysuper ANA PAULA 2 READER) 1 Each once [...] Problems Paternal Grandfather Cancer Paternal Aunt other ([place]) Paternal Aunt Great aunt Colon Cancer No [...] plan. Caryn Lowery APRN.CNP documented in this encounterTrihealth [facility]hes[facility]02-27-2025 History of Present illness Narrative* Meggan [...] PATIENT PRESENTS WITH AN IMPLANTABLE OR ATTACHED ROOM SERVICE WAITER/WAITRESS: No RADIOLOGY DEPARTMENT: General X-ray: Exam(s) Completed: Chest X-Ray PERIPHERAL IV DATA: Not applicable SIGNED BY: RT Fermin(R) July 13, 2024 4:28 PM documented in this encounterTrihealth Bethes[facility]02-27-2025 NoteOhio[facility]02-27-2025 NoteOhio[facility]02-27-2025 History of Present illness Narrative* Janie [...] 1/2 HOUR BEFORE BREAKFAST flash glucose sensor (ORDISSIMOSTYLE ANA PAULA 2 SENSOR) kit USE TO [...] min after dose flash glucose scanning reader (Soysuper ANA PAULA 2 READER) 1 Each once [...] Problems Paternal Grandfather Cancer Paternal Aunt other ([place]) Paternal Aunt Great aunt Colon Cancer No [...] spine. IMPRESSION IMPRESSION: No acute radiographic abnormality. Revenue Cycle Specialist: SARWAT Transcribe Date/Time: Jul 13 2024 4:42P [...] plan. Janie Vinson APRN.JACINTA documented in this encounterTrihealth Bethes[facility]02-14-2025 NoteOhio[facility]02-14-2025 History of Present illness Narrative* Caryn [...] week. Discard Pen After flash glucose sensor (Globaltmail USAYLE ANA PAULA 2 SENSOR) kit USE TO [...] min after dose flash glucose scanning reader (Soysuper ANA PAULA 2 READER) 1 Each once [...] Problems Paternal Grandfather Cancer Paternal Aunt other ([place]) Paternal Aunt Great aunt Colon Cancer No [...] Patient agreeable to treatment plan. Caryn Lowery APRN.INSTRUMENT REPAIRER HELPER documented in this encounterTrihealth Bethes[facility]02-03-2025 Telephone encounter Note * Telephone Encounter - Shazia Acuña LPN - 06/19/2024 12:00 PM EST Images from the original note were not included. Elle Boone MD You1 minute ago (11:57 AM) Sent in Dulera [facility]02-03-2025 Miscellaneous Notes* Telephone Encounter - Shazia [...] Acuña LPN - 06/19/2024 8:46 AM EST [facility] called and states the Advair has cardiovascular toxicity interactions with the Voriconazole that has been ordered by another physician. They are wondering if Symbicort or Dulera shouldbe sent as they don't have these interactions with the Voriconazole. Shazia Acuña LPN documented in this encounterTrihealth Bethesda [facility] Hospital02-03-2025 Note* Addendum Note - Elle Boone MD - 06/19/2024 11:57 AM ESTAddended by: ELLE BOONE on: 06/19/2024 11:57 AM Modules accepted: Orders [facility]02-03-2025 Telephone encounter Note* Telephone Encounter - Shazia Acuña LPN - 06/19/2024 8:46 AM EST [facility] called and states the Advair has cardiovascular toxicity interactions with the Voriconazole that has been ordered by another physician. They are wondering if Symbicort or Dulera shouldbe sent as they don't have these interactions with the Voriconazole. Shazia Acuña LPN [facility]01-31-2025 History of Present illness Narrative* Elle Boone MD - 06/16/2024 1:30 PM EST Images from the original note were not included. . Respiratory Wing Note Patient name: Darren Reinoso PCP: Babar [...] was started on Voriconazole by her local machine silk screen printer and referred to ID. By time she [...] Symbicort, just albuterol and her nebs. DME: [facility] DATA: PFT 2018: Spirometry shows no [...] DATE OF EXAM: Feb 29 2024 2:25PM [facility] 0539 - CT CHEST W IVCON / [...] min after dose flash glucose scanning reader (Soysuper ANA PAULA 2 READER) 1 Each once [...] Problems Paternal Grandfather Cancer Paternal Aunt other ([place]) Paternal Aunt Great aunt Colon Cancer No [...] which included preparing to see the patient, cvec-[id number]-birv patient care, completing clinical documentation, obtaining and/or reviewing separately obtained history, performing a medically appropriate examination, ordering medications, tests, or procedures, and independently interpreting results (not separately reported). Elle Boone MD Respiratory Wing documented in this encounterTrihealth Bethes[facility] Hospital01-31-2025 NoteOhio[facility]01-31-2025 NoteOhio[facility]01-31-2025 Procedure note* Viktoriya Woodward RPFT - [...] DATE: June 16, 2024 TIME: 1:12 PM [facility]01-31-2025 Procedure note* Viktoriya Woodward RPFT - [...] 2024 TIME: 1:12 PM documented in this encounterTrihealth Bethes[facility] Hospital01-31-2025 NoteOhio[facility]01-31-2025 History of Present illness Narrative* Viktoriya Woodward RPFT - 06/16/2024 1:05 PM EST PULM FUNCTION: Provider: Elle Boone MD Assisting Tech: Viktoriya Woodward RPFT Spirometry: 1 Exhaled Nitric Oxide: 1 documented in this encounterTrihealth Bethes[facility] Hospital12-31-2024 Telephone encounter Note * Telephone Encounter [...] by mouth once daily. Tete Gonzalez RN [facility]12-31-2024 Miscellaneous Notes* Telephone Encounter - Tete [...] daily. Tete Gonzalez, ROD documented in this encounterTrihealth Bethesda North Hospital12-13-2024 NoteOhio[facility]12-13-2024 History of Present illness Narrative* Caryn Lowery APRN.INSTRUMENT REPAIRER HELPER - 04/28/2024 11:27 AM EST CC: Patient [...] Has appointment to establish with pulmonology at [facility] next month. DIABETES MELLITUS: Ms. Reinoso denies [...] min after dose flash glucose scanning reader (Soysuper ANA PAULA 2 READER) 1 Each once [...] Problems Paternal Grandfather Cancer Paternal Aunt other ([place]) Paternal Aunt Great aunt Colon Cancer No [...] plan. Caryn Lowery APRN.CNP documented in this encounterTrihealth Bethes[facility]11-27-2024 Telephone encounter Note * Telephone Encounter [...] [place] LPN April 12, 2024 3:25 PM [facility]11-27-2024 Miscellaneous Notes* Telephone Encounter - Shelia [...] 12, 2024 3:25 PM documented in this encounterTrihealth Bethesda North Hospital11-20-2024 Telephone encounter Note * Telephone Encounter - Shazia Lee APRN.CNP - 04/05/2024 10:02 AM EST Wound culture reveals Few enterococcus faecalis Reached out and spoke with patient and states wound remains draining Its getting smaller Changing the dressing daily Continue taking the Doxycyline Wound care [facility] Work Phone: [phone]) 508-697511-20-2024 Miscellaneous Notes* Telephone Encounter - Shazia Lee APRN.CNP - 04/05/2024 10:02 AM EST Wound culture reveals Few enterococcus faecalis Reached out and spoke with patient and states wound remains draining Its getting smaller Changing the dressing daily Continue taking the Doxycyline Wound care documented in this encounterTrihealth Bethes[facility] Hospital11-17-2024 Instructions* Patient Instructions* Victoria Nguyen APRN.CNP [...] illness Victoria Nguyen APRN.CNP documented in this encounterTrihealth Bethesda [facility] Hospital11-17-2024 NoteOhio[facility]11-17-2024 History of Present illness Narrative* Victoria [...] breath. Use over 5-15minutes. flash glucose sensor (ORDISSIMOSTYLE ANA PAULA 2 SENSOR) kit USE TO [...] Problems Paternal Grandfather Cancer Paternal Aunt other ([place]) Paternal Aunt Great aunt Colon Cancer No [...] illness Victoria Nguyen APRN.JACINTA documented in this encounterTrihealth Bethes[facility] Hospital11-16-2024 Instructions* Patient Instructions* Victoria Nguyen APRN.CNP [...] drainage after 3-4 days. documented in this encounterTrihealth Bethesda North Hospital11-16-2024 NoteOhio[facility]11-16-2024 History of Present illness Narrative* Victoria [...] breath. Use over 5-15minutes. flash glucose sensor (Globaltmail USAYLE ANA PAULA 2 SENSOR) kit USE TO [...] min after dose flash glucose scanning reader (ORDISSIMOSTYLE ANA PAULA 2 READER) 1 Each once [...] Problems Paternal Grandfather Cancer Paternal Aunt other ([place]) Paternal Aunt Great aunt Colon Cancer No [...] illness Victoria Nguyen APRN.CNP documented in this encounterTrihealth Bethesda [facility]11-15-2024 NoteOhio[facility]11-15-2024 History of Present illness Narrative* Janie [...] history is provided by the patient. No foreign language instructor was used. Review of Systems Constitutional: Negative. Skin: Negative. Objective Physical Exam Constitutional: Appearance: Normal appearance. Pulmonary: Effort: Pulmonary effort is normal. Musculoskeletal: Legs: Comments: Centimeter by 2 cm firm area no induration noted no redness spreading. Bladder Trimmer present Neurological: Mental Status: She is alert. [...] min after dose flash glucose scanning reader (Soysuper ANA PAULA 2 READER) 1 Each once [...] Problems Paternal Grandfather Cancer Paternal Aunt other ([place]) Paternal Aunt Great aunt Colon Cancer No [...] discussed with the Patient or Patient's Authorized Transformer Shop Supervisor. Asapplicable, any other physician, advance practice provider, medical student, or other health professional student that will be observing or involved in the sensitive examination for educational or training purposes was discussed with the Patient or Authorized Transformer Shop Supervisor. The Patient or Authorized Transformer Shop Supervisor has agreed to proceed with the sensitive examination. (Sensitive examination includes inspection and/or palpation of the breasts, pelvis, prostate and anorectal regions) Janie Vinson APRN.JACINTA documented in this encounterTrihealth Bethesda [facility] Hospital11-01-2024 Telephone encounter Note * Telephone Encounter [...] with breakfast. Take with inocencio Gonzalez RN [facility]11-01-2024 Miscellaneous Notes* Telephone Encounter - Tete [...] with inocencio Gonzalez RN documented in this encounterTrihealth Bethesda North Hospital11-01-2024 NoteOhio[facility]11-01-2024 History of Present illness Narrative* Caryn Lowery APRN.INSTRUMENT REPAIRER HELPER - 03/17/2024 8:17 AM EDT CC: Patient presents with: Recheck: Follow up SOB HPI Darren Reinoso is a 44 year old female who presents today for follow up on respiratory concerns. Patient has had ongoing respiratory concerns for the past 2-3 months with no improvement with antibiotic treatment. Has history of asthma and currently sees [place] [facility]. With no improvement, sputum cultures were [...] Problems Paternal Grandfather Cancer Paternal Aunt other ([place]) Paternal Aunt Great aunt Colon Cancer No [...] plan. Caryn Lowery APRN.CNP documented in this encounterTrihealth Bethesda [facility] Hospital10-15-2024 History of Present illness Narrative* Eusebia [...] PATIENT PRESENTS WITH AN IMPLANTABLE OR ATTACHED ROOM SERVICE WAITER/WAITRESS: No ALLERGIES: Reviewed and unchanged CONTRAST ALLERGY: [...] Chest SIGNATURE: RT Cem(R) PATIENT NAME: Darren Reionso DATE: February 29, 2024 TIME: 2:50 PM documented in this encounterTrihealth Bethesda [facility] Hospital10-15-2024 NoteOhio[facility]10-15-2024 Telephone encounter Note* Telephone Encounter - Babar Phillip MD - 02/29/2024 1:00 PM EDT I agree, once pulmonary is following with her for lung issues, I would advice that she direct all queries and concerns to them RegardsBabar MD [facility]10-15-2024 Miscellaneous Notes* Telephone Encounter - Babar [...] aspergillus, when the blood cx is negative. [facility] is prescribing the medication. Patient will call them to ask them to look at the results again, and tell her if she should be taking the medication. documented in this encounterTrihealth Bethes[facility]10-15-2024 Telephone encounter Note * Telephone Encounter [...] if she should be taking the medication. [facility]10-14-2024 Telephone encounter Note* Telephone Encounter - Tarah Haider LPN - 02/28/2024 3:40 PM EDT Spoke with pt and information listed below given. Pt verbalizes understanding. Pt has an apt with infectious Disease on Wednesday03/01/24 at 2 PM. She was not certain what the doctors name was. Tarah Haider LPN [facility]10-14-2024 Miscellaneous Notes* Telephone Encounter - Tarah Haider LPN - 02/28/2024 3:40 PM EDT Spoke with pt and information listed below given. Pt verbalizes understanding. Pt has an apt with infectious Disease on Wednesday03/01/24 at 2 PM. She was not certain what the doctors name was. Tarah Haider LPN * Telephone Encounter - Caryn Lowery APRN.INSTRUMENT REPAIRER HELPER - 02/28/2024 10:53 AM EDT This is an appropriate treatment medication. Is she seeing Infectious disease as ordered by the pulmonology group? Take care Caryn Lowery APRN.CNP * Telephone Encounter - Silviano Root RN - 02/28/2024 10:17 AM EDT Patient asking pcp to review and advise on recent lab results. 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 Reports she has been taking it for 2 days. Asking if this is the right medication? Please advise patient: [phone] documented in this encounterTrihealth Bethes[facility]10-14-2024 Telephone encounter Note * Telephone Encounter - Caryn Lowery APRN.CNP - 02/28/2024 10:53 AM EDT This is an appropriate treatment medication. Is she seeing Infectious disease as ordered by the pulmonology group? Take care Caryn Lowery APRN.CNP [facility]10-14-2024 Telephone encounter Note* Telephone Encounter - Silviano Root RN - 02/28/2024 10:17 AM EDT Patient asking pcp to review and advise on recent lab results. 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 Reports she has been taking it for 2 days. Asking if this is the right medication? Please advise patient: [phone] [facility]10-11-2024 Telephone encounter Note* Telephone Encounter - Marita Gonzalez RN - 02/25/2024 2:57 PM EDT Yas with [facility] calls to request refill of Trulicity. Order currently says on hold from 02/21/2024. Notified [facility]. Marita Gonzalez RN [facility]10-11-2024 Miscellaneous Notes* Telephone Encounter - Marita Gonzalez RN - 02/25/2024 2:57 PM EDT Yas with [facility] calls to request refill of Trulicity. Order currently says on hold from 02/21/2024. Notified [facility]. Marita Gonzalez RN documented in this encounterTrihealth Bethesda North Hospital10-11-2024 Telephone encounter Note * Telephone Encounter - Chaparrita Paez RN - 02/25/2024 12:04 PM EDT Pt called and is notified of providers message and instructions. Pt voices understanding. She states she will be in today to get them done. Pt states she finally got in to see Pulmonary at [facility] today at 1015. She reports she was put on an antifungal for aspergillus, and has an order to see infectious disease. She said she is still waiting to get a call from them. Chaparrita Paez RN [facility]10-11-2024 Miscellaneous Notes* Telephone Encounter - Chaparrita Paez RN - 02/25/2024 12:04 PM EDT Pt called and is notified of providers message and instructions. Pt voices understanding. She states she will be in today to get them done. Pt states she finally got in to see Pulmonary at [facility] today at 1015. She reports she [...] done victorinoBabar Hartman MD documented in this encounterTrihealth Bethesda [facility] Hospital10-11-2024 Telephone encounter Note * Telephone Encounter - Babar Phillip MD - 02/25/2024 11:14 AM EDT I have ordered labs for the patient. Please get that done [facility] Babar Medeiros MD [facility]10-11-2024 Telephone encounter Note* Telephone Encounter - Silviano Root RN - 02/25/2024 10:54 AM EDT Faxed respiratory culture results to [facility] Pulmonary, per patient request. [facility]10-11-2024 Miscellaneous Notes* Telephone Encounter - Silviano Root RN - 02/25/2024 10:54 AM EDT Faxed respiratory culture results to [facility] Pulmonary, per patient request. documented in this encounterTrihealth Bethesda North Hospital10-07-2024 NoteOhio[facility]10-07-2024 History of Present illness Narrative* Duran Blunt MD - 02/21/2024 2:31 PM EDT Duran Blunt MD Department of Orthopaedics Orthopaedics [address] [place] [id number] Dept: [phone] Dept February 21, 2024 CHIEF COMPLAINT: Established [...] taking: Reported on 02/21/2024) flash glucose sensor (Globaltmail USAYLE ANA PAULA 2 SENSOR) kit USE TO [...] min after dose flash glucose scanning reader (ORDISSIMOSTYLE ANA PAULA 2 READER) 1 Each once [...] anxiety) Duran Blunt MD documented in this encounterTrihealth Bethesda [facility]10-03-2024 NoteOhio[facility]10-03-2024 History of Present illness Narrative* Caryn Lowery APRN.INSTRUMENT REPAIRER HELPER - 02/17/2024 1:48 PM EDT CC: Patient [...] continued to call her pulmonology group at [place] but not getting an appointment. Denies chest [...] Problems Paternal Grandfather Cancer Paternal Aunt other ([place]) Paternal Aunt Great aunt Colon Cancer No [...] - will get her in with new machine silk screen printer, refill prednisone and await other treatment until. [...] plan. Caryn Lowery APRN.CNP documented in this encounterTrihealth Bethes[facility]10-02-2024 Telephone encounter Note * Telephone Encounter [...] two times a day. Tete Gonzalez RN [facility]10-02-2024 Miscellaneous Notes* Telephone Encounter - Tete [...] day. Tete Gonzalez RN documented in this encounterTrihealth Bethesda [facility]09-20-2024 History of Present illness Narrative* Ana Gunderson RT(R) - 02/04/2024 2:50 PM EDT Radiology [...] PATIENT PRESENTS WITH AN IMPLANTABLE OR ATTACHED ROOM SERVICE WAITER/WAITRESS: No RADIOLOGY DEPARTMENT: General X-ray: Exam(s) Completed: Chest X-Ray PERIPHERAL IV DATA: Not applicable SIGNED BY: RT Luis(R) February 04, 2024 2:53 PM documented in this encounterTrihealth Bethesda [facility]09-20-2024 NoteOhio[facility]09-18-2024 NoteOhio[facility]09-18-2024 History of Present illness Narrative* Caryn [...] started on prednisone and doxycycline by her machine silk screen printer that she sees for her asthma. Was [...] min after dose flash glucose scanning reader (Soysuper ANA PAULA 2 READER) 1 Each once [...] Problems Paternal Grandfather Cancer Paternal Aunt other ([place]) Paternal Aunt Great aunt Colon Cancer No [...] plan. Caryn Lowery APRN.CNP documented in this encounterTrihealth Bethesda [facility]09-06-2024 History of Present illness Narrative* Ana [...] PATIENT PRESENTS WITH AN IMPLANTABLE OR ATTACHED ROOM SERVICE WAITER/WAITRESS: No RADIOLOGY DEPARTMENT: General X-ray: Exam(s) Completed: Chest X-Ray PERIPHERAL IV DATA: Not applicable SIGNED BY: RT Lusi(R) January 21, 2024 11:59 AM documented in this encounterMichael Ville [address]-06-2024 NoteOhiohealth [facility]09-06-2024 NoteOhio[facility]09-06-2024 History of Present illness Narrative* SebastiánCarynLILI.INSTRUMENT REPAIRER HELPER - 01/21/2024 11:04 AM EDT CC: Patient [...] my chart so went to ER at [facility] on 01/04/24. CT negative for PE, possibly start of infection showing nodular densities with lymphadenopathy. EKG and blood work including troponin without concern. Instructed to start treatment as ordered by Pulmonology. Has not seen her [place] pulmonology in a few months ut were [...] Problems Paternal Grandfather Cancer Paternal Aunt other ([place]) Paternal Aunt Great aunt Colon Cancer No [...] plan. Caryn Lowery APRN.CNP documented in this encounterTrihealth Bethes[facility]09-04-2024 Telephone encounter Note * Telephone Encounter - Yuliana Goldstein MA - 01/19/2024 4:05 PM EDT Called and spoke with patient. Patient scheduled appointment with Dr. Blunt on Wednesday01/24/24. [facility]09-04-2024 Miscellaneous Notes* Telephone Encounter - Yuliana [...] [facility]. She is not sure what her options are at this time because she doesn't believe she is a candidate for replacement as she continues to smoke, but she is having difficulty ambulating around the home dueto pain. Please advise. Geena Nielsen LPN documented in this encounterTrihealth Bethesda North [facility]09-04-2024 Telephone encounter Note * Telephone Encounter - Milly Arce LPN - 01/19/2024 8:55 AM EDT Patient notified, Darren had 3 days left of the medication but threw it out. Milly Arce LPN [facility]09-04-2024 Miscellaneous Notes* Telephone Encounter - Milly [...] was diagnosed with a lung infection by [facility] pulmonology, she is taking prednisone taper [...] pcp. Shira Chang LPN documented in this encounterTrihealth Bethes[facility]09-03-2024 Telephone encounter Note * Telephone Encounter - Geena Nieslen LPN - 01/18/2024 1:52 PM EDT Patient [...] dueto pain. Please advise. Geena Nielsen LPN [facility]08-29-2024 [facility] History of Present illness Narrative* Caryn Lowery APRN.INSTRUMENT REPAIRER HELPER - 01/13/2024 11:23 AM EDT CC: Patient presents with: Recheck: ER follow up, lung infection HPI Darren Reinoso is a 44 year old female who presents today for ER follow-up. Was seen in office on 01/03/24 with right sided chest pain, feeling feverish,cough, wheezing, and SOB on exertion. D-dimer was positive which patient saw in my chart so went to ER at [facility] on 01/04/24. CT negative for PE, possibly start of infection showing nodular densities with lymphadenopathy. EKG and blood work including troponin without concern. Instructed to start treatment as ordered by Pulmonology. Has not seen her [place] [facility] in a few months ut were [...] she [facility] [place] [facility]. Her machine silk screen printer told her to continue her prednisone. Also [...] Large kit 1 Each once daily. lancets (Diamond KineticsET SUPER THIN LANCETS) 30 gauge Test blood [...] min after dose flash glucose scanning reader (Soysuper ANA PAULA 2 READER) 1 Each once [...] Problems Paternal Grandfather Cancer Paternal Aunt other ([place]) Paternal Aunt Great aunt Colon Cancer No [...] labs and imaging results. Outside chart from [facility] reviewed. ASSESSMENT/PLAN: 1. Shortness of [...] psychiatry - Reviewed concept of neurochemical imbalance [facility] depression/anxiety, treatment options and benefits of counseling in combination with medication. Also reviewed benefits of sleep hygeine, diet and exercise - Instructed patient to contact office or onbxf-jk-reza after-hours promptly should condition worsen or any new symptoms appear. - [facility] and after hours crisis line 5. [...] plan. Caryn Lowery APRN.CNP documented in this encounterTrihealth Bethes[facility]08-28-2024 Telephone encounter Note * Telephone Encounter [...] her to call us. Chaparrita Paez RN [facility]08-27-2024 Telephone encounter Note* Telephone Encounter - Babar Phillip MD - 01/11/2024 5:34 PM EDT This is an expected side effect of the medication Babar Medeiros MD [facility]08-27-2024 Telephone encounter Note* Telephone Encounter - Shira Chang LPN - 01/11/2024 2:03 PM EDT Pt states she was diagnosed with a lung infection by [facility] pulmonology, she is taking prednisone taper [...] along to her pcp. Shira Chang LPN [facility]08-22-2024 Telephone encounter Note* Telephone Encounter - Caryn Lowery APRN.CNP - 01/06/2024 3:30 PM EDT ER records reviewed, possible start of infectious process. Please schedule ER follow up in 1 week. Thank you Caryn Lowery APRN.CNP [facility]08-22-2024 Miscellaneous Notes* Telephone Encounter - Caryn [...] Patient states she was seen in the [place] ER for chest pain and was given AIB and prednisone. States CT was done and was negative. I will requests records for review. * Telephone Encounter - Caryn Lowery APRN.CNP - 01/05/2024 7:38 AM EDT D-dimer is elevated. She needs a CT of the chest to further evaluate this. Other blood work in acceptable ranges. Thank you Caryn Lowery APRN.JACINTA documented in this encounterTrihealth Bethesda North Hospital08-22-2024 Telephone encounter Note * Telephone Encounter - Katie Moon MA - 01/06/2024 1:19 PM EDT Records received and placed on provider desk for review. [facility]08-22-2024 Telephone encounter Note* Telephone Encounter - [...] Gonzalez RN January 06, 2024 10:37 AM [facility]08-22-2024 Miscellaneous Notes* Telephone Encounter - Marita [...] 06, 2024 10:37 AM documented in this encounterTrihealth Bethesda [facility]08-21-2024 Telephone encounter Note * Telephone Encounter - Katie Moon MA - 01/05/2024 11:07 AM EDT Patient states she was seen in the [place] ER for chest pain and was given AIB and prednisone. States CT was done and was negative. I will requests records for review. [facility]08-21-2024 Telephone encounter Note* Telephone Encounter - Caryn Lowery APRN.CNP - 01/05/2024 7:38 AM EDT D-dimer is elevated. She needs a CT of the chest to further evaluate this. Other blood work in acceptable ranges. Thank you Caryn Lowery APRN.JACINTA [facility]08-20-2024 Hospital Discharge instructions Patient Education 01/04/2024 [...] or as directed by your healthcare provider [id number] [employer]. [address] [place] [address], [place] [address]. All rights reserved. This information is not intended as a substitute for professional medical care. Always follow yourhealthcare professional's instructions. Follow Up Care 01/04/2024 15:57:49 With:BABAR PHILLIP MD Address: [address] [place] [id number]- When:2-4 days [facility] Eveliamei Kelly 08-20-2024 Note Discharge Instructions Thank you for allowing [facility] to assist you with your healthcare needs. [...] BABAR PHILLIP MD When:Within 2-4 days Where:[address] [place] [address]- Allergies amoxicillin codeine penicillin sulfa drugs Medications [...] or as directed by your healthcare provider [phone] [employer]. [address] [place] [address]. All rights reserved. This information is not intended as a substitute for professional medical care. Always follow yourhealthcare professional's instructions. Additional Information VACCINATE! IT SAVES LIVES! Members of the community who have not yet received the COVID-19 vaccine and would like to receive it can visit one of [facility] vaccine clinics. There are many vaccine clinic locations within the [facility]. For locations and available times, please visit [email or web address] It is important to note that some COVID mobile vaccine clinics are held outdoors and may be canceled in rainy or stormy conditions. To learn more about pediatric vaccinations (ages 5-11), we invite you to visit the [facility] webpage. [email or web address] [email or web address] learn more about the COVID-19 vaccine, we invite you to visit the CDC website for a list of frequently asked questions. https://www.cdc.gov/coronavirus/2019-ncov/vaccines/faq.html [facility] Patient Portal Access Instructions: Stay connected with your healthcare team and access your personal medical information anytime with the [facility] Patient Portal. If you would like a full copy of your medical records please contact the [facility] Medical Records Department Wednesday through Wednesday between 8a.m. and 4:30p.m. Please follow the directions below to access the portal: 1.Access the email account you provided upon registration to the hospital.2.Look for an invitation email from [facility].3.Open the email and access the invitation link: Accept Invitation to [facility].Fill in the required brewster to create your account. Sign into [email or web address] with your username and password that you [...] you will allow to register on the [facility] Patient Portal for access to your information. You can also access the [facility] Patient Portal on the [employer]. Simply click on Health Records under [employer] and then click on the [facility] logo. [...] Call your local pharmacy or go to [email or web address] to find one close to you.3.Make use of household items: Use cat litter or old coffee grounds to dispose medications if other options arenot available. Mix your drugs with these household products, seal them in an airtight container andthrow it into the garbage. Call [facility]: [phone] to be sure your drugs can be [...] that I should contact my d octor. 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/Transformer Shop Supervisor Signature: Date/Time: Relationship to Patient: Witness Name/Signature: Date/Time: [facility]08-20-2024 Note ORIGINAL EXAMINATION: CTA OF THE CHEST01/04/2024 [...] rhythm Electronic Signature: CHELSIE MORALES MD 01/04/2024 16:57:00[facility] 08-20-2024 Telephone encounter Note* Telephone Encounter - Babar Phillip MD - 01/04/2024 4:25 PM EDT Noted Regards, Babar Phillip MD [facility]08-20-2024 Miscellaneous Notes* Telephone Encounter - Babar Phillip MD - 01/04/2024 4:25 PM EDT Noted Regards, Babar Phillip MD * Telephone Encounter - Chaparrita Paez RN - 01/04/2024 3:36 PM EDT Pt called in and reports [facility] had a 4 hour wait and she was not going to wait that long. She was going to [facility]. Called and talked with Sujatha with [facility] and gave her the report Jignesh had previously. Will try to fax information to fax # [phone]. She reports they just installed the new fax machines, so they may or may not get the information. * Telephone Encounter - Silviano Root RN - 01/04/2024 2:20 PM EDT Spoke with patient. Patient reports she is feeling bad, and agreeable to go to [facility] ER. States she will be at [...] yesterday was normal. Patient contacted pulm at [facility], and this nurse faxed lab results to [facility] Pulm, attn: David Regalado Np, per patient request. Asking pcp to please advise patient. documented in this encounterTrihealth [facility]hes[facility]08-20-2024 Telephone encounter Note * Telephone Encounter - Chaparrita Paez RN - 01/04/2024 3:36 PM EDT Pt called in and reports [facility] had a 4 hour wait and she was not going to wait that long. She was going to [facility]. Called and talked with Sujatha with [facility] and gave her the report Jignesh had previously. Will try to fax information to fax # [phone]. She reports they just installed the new fax machines, so they may or may not get the information. [facility]08-20-2024 Telephone encounter Note* Telephone Encounter - Silviano Root RN - 01/04/2024 2:20 PM EDT Spoke with patient. Patient reports she is feeling bad, and agreeable to go to [facility] ER. States she will be at ER in approx 35-45 min. This nurse phoned ER and given D- Dimer, CXR, EKG results, gave brief hx on patient. Advised patient is having symptoms of SOB, increased pain in chest to back with deep breath, and cough. [facility]08-20-2024 Telephone encounter Note* Telephone Encounter - [...] yesterday was normal. Patient contacted pulm at [facility], and this nurse faxed lab results to [facility] Pulm, attn: David Regalado Np, per patient request. Asking pcp to please advise patient. [facility]08-19-2024 History of Present illness Narrative* Brittney [...] PATIENT PRESENTS WITH AN IMPLANTABLE OR ATTACHED ROOM SERVICE WAITER/WAITRESS: No RADIOLOGY DEPARTMENT: General X-ray: Exam(s) Completed: Chest X-Ray PERIPHERAL IV DATA: Not applicable SIGNED BY: RT Bob(R) January 03, 2024 2:22 PM documented in this encounterTrihealth [facility]hes[facility]08-19-2024 NoteOhio[facility]08-19-2024 NoteOhio[facility]08-19-2024 History of Present illness Narrative* Sebastián CarynLILI vallejo.INSTRUMENT REPAIRER HELPER - 01/03/2024 1:12 PM EDT CC: Patient [...] two times a day. flash glucose sensor (ORDISSIMOSTYLE ANA PAULA 2 SENSOR) kit USE TO [...] Problems Paternal Grandfather Cancer Paternal Aunt other ([place]) Paternal Aunt Great aunt Colon Cancer No [...] per minute AXIS: Normal axis INTERVALS: Normal AL interval QRS COMPLEX: Normal ST SEGMENT: Normal ST-T segments QT INTERVAL: Normal COMPARED WITH PRIOR: unchanged ASSESSMENT/PLAN: 1. Chest pain, unspecified type - ICD9: 786.50, ICD10: R07.9 (primary diagnosis) NO concerns on EKG, possibly result of celebrex but with SOB will check d-dimer and with possible when taking lasix, will check DESULFURIZER HAND. - stop celebrex Follow up in 2 [...] plan. Caryn Lowery APRN.CNP documented in this encounterTrihealth [facility]hes[facility]07-26-2024 Telephone encounter Note * Telephone Encounter - Silviano Root RN - 12/10/2023 11:57 AM EDT Patient reports she was prescribed amoxicillin for tooth infection in [facility] on 12-06-23, and has now developed a vaginal yeast infection- vaginal itching, burning, discharge. Asking Kilo Rubin, to send Rx for diflucan to [facility]. Pended previous Rx. [facility]07-26-2024 Miscellaneous Notes* Telephone Encounter - Silviano Root RN - 12/10/2023 11:57 AM EDT Patient reports she was prescribed amoxicillin for tooth infection in [facility] on 12-06-23, and has now developed a vaginal yeast infection- vaginal itching, burning, discharge. Asking Kilo Rubin, to send Rx for diflucan to [facility]. Pended previous Rx. documented in this encounterTrihealth [facility]07-24-2024 Telephone encounter Note * Telephone Encounter - Caryn Lowery APRN.CNP - 12/08/2023 7:59 AM EDT Ok to continue this as long as abdominal pain and other symptoms are fully resolved. Thank you Caryn Lowery APRN.CNP [facility]07-24-2024 Miscellaneous Notes* Telephone Encounter - Caryn [...] 07, 2023 4:07 PM documented in this encounterTrihealth [facility]hes[facility]07-23-2024 Telephone encounter Note * Telephone Encounter [...] Uriostegui LPN December 07, 2023 4:07 PM [facility]07-22-2024 History of Present illness Narrative* Steve [...] two times a day. flash glucose sensor (Soysuper ANA PAULA 2 SENSOR) kit USE TO CHECK BLOOD SUGAR DAILY Blood Pressure Monitor 1 Each as directed. Dispense with Extra Large Cuff Blood Pressure Kit-Extra Large kit 1 Each once daily. lancets (Diamond KineticsET SUPER THIN LANCETS) 30 gauge Test blood [...] min after dose flash glucose scanning reader (Soysuper ANA PAULA 2 READER) 1 Each once [...] Problems Paternal Grandfather Cancer Paternal Aunt other ([place]) Paternal Aunt Great aunt Colon Cancer No [...] of care. This note was generated using [employer] software. It may contain errors in wording, punctuation, or spelling. Steve Ramirez APRN.JACINTA documented in this encounterTrihealth [facility]hes[facility]07-22-2024 Telephone encounter Note * Telephone Encounter [...] she will go to [facility] for evaluation. [facility]07-22-2024 Miscellaneous Notes* Telephone Encounter - Silviano [...] to [facility] for evaluation. documented in this encounterTrihealth [facility]07-19-2024 History of Present illness Narrative* Caryn Lowery APRN.INSTRUMENT REPAIRER HELPER - 12/03/2023 1:53 PM EDT CC: Patient [...] appetite, fatigue, fever, and diarrhea. Skipped her trMCube, Incity shot last with no improvement. Took one antidiarrheal capsule and pe ptobismol without improvement. Diarrhea is liquid varying from black to risk management intern brown with frothy mixture on top. Also [...] ago ate a burger and fries from [employer] which caused return of the pain vomiting [...] two times a day. flash glucose sensor (Globaltmail USAYLE ANA PAULA 2 SENSOR) kit USE TO [...] min after dose flash glucose scanning reader (Soysuper ANA PAULA 2 READER) 1 Each once [...] Problems Paternal Grandfather Cancer Paternal Aunt other ([place]) Paternal Aunt Great aunt Colon Cancer No [...] plan. Caryn Lowery APRN.CNP documented in this encounterTrihealth [facility]hes[facility]07-16-2024 Telephone encounter Note * Telephone Encounter [...] Dickey LPN November 30, 2023 1:23 PM [facility]07-16-2024 Miscellaneous Notes* Telephone Encounter - Hope [...] 30, 2023 1:23 PM documented in this encounterTrihealth Bethesda [facility] Hospital07-09-2024 Telephone encounter Note * Telephone Encounter - Linda Reyez APRN.CNP - 11/23/2023 9:56 AM EDT Ordered. [facility]07-09-2024 Miscellaneous Notes* Telephone Encounter - Linda Reyez APRN.CNP - 11/23/2023 9:56 AM EDT Ordered. * Telephone Encounter - Shelia Houston LPN - 11/23/2023 9:21 AM EDT Darren is requesting a lab draw to test for exposure to syphilis. Would like to complete labs today. No need to call back, she will check My Chart for orders. documented in this encounterTrihealth Bethes[facility] Hospital07-09-2024 Telephone encounter Note * Telephone Encounter - Shelia Houston LPN - 11/23/2023 9:21 AM EDT Darren is requesting a lab draw to test for exposure to syphilis. Would like to complete labs today. No need to call back, she will check My Chart for orders. [facility]07-03-2024 Telephone encounter Note* Telephone Encounter - Katie Moon MA - 11/17/2023 10:55 AM EDT Patient scheduled and notified. [facility]07-03-2024 Miscellaneous Notes* Telephone Encounter - Katie [...] in with him. Pt states Caryn Lowery DESULFURIZER HAND wanted Pt to get in with her [...] you Caryn Lowery APRN.CNP documented in this encounterTrihealth Bethesda North Hospital07-03-2024 Telephone encounter Note * Telephone Encounter - Caryn Lowery APRN.CNP - 11/17/2023 8:[address] patient in a walkin spot on WednesdayDecember 02. Also urine is without infection. Thank you Caryn Lowery APRN.CNP [facility]07-02-2024 Note* Addendum Note - Celeste Eric - 11/16/2023 3:58 PM EDTAddended by: CELESTE ERIC on: 11/16/2023 03:58 PM Modules accepted: Orders [facility]07-02-2024 Miscellaneous Notes* Addendum Note - Celeste Eric - 11/16/2023 3:58 PM EDTAddended by: CELESTE ERIC on: 11/16/2023 03:58 PM Modules accepted: Orders documented in this encounterTrihealth Bethesda [facility] Hospital07-02-2024 Telephone encounter Note * Telephone Encounter - Chaparrita Paez RN - 11/16/2023 11:40 AM EDT Pt called and is notified of providers results and instructions. Pt voices understanding. Let Pt know to call Dr Gary and get in with him. Pt states Caryn Lowery DESULFURIZER HAND wanted Pt to get in with her [...] Please call and advise. Chaparrita Paez RN [facility]07-02-2024 Telephone encounter Note* Telephone Encounter - [...] case needed. Thank you Caryn Lowery APRN.JACINTA [facility]07-01-2024 History of Present illness Narrative* Caryn [...] Diarrhea is liquid varying from black to risk management intern brown with frothy mixture on top. Also [...] 30 tablet^Rfl: 0 flash glucose scanning reader (Soysuper ANA PAULA 2 READER)^1 Each once daily.^Disp: [...] Problems Paternal Grandfather Cancer Paternal Aunt other ([place]) Paternal Aunt Great aunt Colon Cancer No [...] plan. Caryn Lowery APRN.CNP documented in this encounterTrihealth Bethesda [facility]06-17-2024 Telephone encounter Note * Telephone Encounter [...] Uriostegui LPN November 01, 2023 2:01 PM [facility]06-17-2024 Miscellaneous Notes* Telephone Encounter - Swati [...] 01, 2023 2:01 PM documented in this encounterTrihealth Bethesda North Hospital06-05-2024 History of Present illness Narrative* Caryn Lowery APRN.INSTRUMENT REPAIRER HELPER - 10/20/2023 5:37 PM EDT CC: Patient presents with: Recheck: Follow up HPI Darren Reinoso is a 43 year old female who presents today for follow up. Was seen last week under great amount of stress with infidelity of fpc boyfriend and other life concerns. Following with [...] 30 tablet^Rfl: 0 flash glucose scanning reader (Soysuper ANA PAULA 2 READER)^1 Each once daily.^Disp: [...] Problems Paternal Grandfather Cancer Paternal Aunt other ([place]) Paternal Aunt Great aunt Colon Cancer No [...] - Instructed patient to contact office or [id number] after-hours promptly should condition worsen or any new symptoms appear. - [facility] and after hours crisis line 2. [...] plan. Caryn Lowery APRN.CNP documented in this encounterTrihealth [facility]hes[facility]05-29-2024 History of Present illness Narrative* Caryn [...] hurt herself. Also denies having access to [employer]. Alcohol use: does not drink any alcohol Drug use: No Appetite: good Started talking to her aunt who is reported as a clergy woman and trying to get everything figured out but had just found out the truth of her fpc boyfriend in the past few days. Tried [...] 30 tablet^Rfl: 0 flash glucose scanning reader (Soysuper ANA PAULA 2 READER)^1 Each once daily.^Disp: [...] Problems Paternal Grandfather Cancer Paternal Aunt other ([place]) Paternal Aunt Great aunt Colon Cancer No [...] - Instructed patient to contact office or [id number] after-hours promptly should condition worsen or any new symptoms appear. - [facility] and after hours crisis line 2. STD [...] plan Caryn Lowery APRN.JACINTA documented in this encounterTrihealth Bethesda [facility] Hospital04-19-2024 Miscellaneous Notes* Telephone Encounter - Kelli [...] you. Kelli Mendoza RN. documented in this encounterTrihealth Bethesda [facility] Hospital04-10-2024 Miscellaneous Notes* Telephone Encounter - Tete [...] 10. : no Protocols used: Eye - [id number]-GC, Tgo-JANVL-JB documented in this encounterTrihealth Bethesda [facility] Hospital04-03-2024 Miscellaneous Notes* Telephone Encounter - Caryn [...] faxed. Marita Gonzalez RN documented in this encounterTrihealth Bethesda North Hospital04-02-2024 Miscellaneous Notes* Telephone Encounter - Marita [...] large blood pressure dit to go to. [facility] can not provide. They can not bill for this. Asking pt if she would like this to go to [facility]. Tarah Haider LPN documented in this encounterTrihealth Bethesda [facility] Hospital03-26-2024 Miscellaneous Notes* Telephone Encounter - Hope [...] you. Hope Dickey LPN. documented in this encounterTrihealth Bethesda [facility] Hospital03-14-2024 Miscellaneous Notes* Telephone Encounter - Tarah [...] you. Tarah Haider LPN. documented in this encounterTrihealth Bethesda [facility] Hospital02-29-2024 History of Present illness Narrative* Caryn Lowery, PHARMACEUTICAL PROCESS ENGINEER.INSTRUMENT REPAIRER HELPER - 07/15/2023 2:06 PM EST CC: Patient [...] 30 tablet^Rfl: 0 flash glucose scanning reader (Soysuper ANA PAULA 2 READER)^1 Each once daily.^Disp: [...] Problems Paternal Grandfather Cancer Paternal Aunt other ([place]) Paternal Aunt Great aunt Colon Cancer No [...] plan. Caryn Lowery APRN.CNP documented in this encounterTrihealth Bethesda [facility]02-28-2024 Hospital Discharge instructions Patient Education 07/14/2023 [...] breathing or swallowing Dizziness, weakness, or fainting [id number] [employer] [place] [address]. All rights reserved. This information is not intended as a substitute for professional medical care. Always follow yourhealthcare professional's instructions. Follow Up Care 07/14/2023 18:28:54 With:BABAR PHILLIP Address: [address] [place] [phone]- Business (1) When:2-4 days Comments:Schedule appointment for close follow-up if symptoms or not improving.Continue Zyrtec OR Benadryl until symptoms resolved.Use prednisone and famotidine as prescribed to help suppress the reaction.Return to the ED if symptoms worsen. [facility] 02-28-2024 Emergency department Discharge summary Discharge Instructions Thank you for allowing [facility] to assist you with your healthcare needs. [...] to the ED if symptoms worsen. Where: [address] [place] [address] [place] [address] [facility] (1) Allergies amoxicillin codeine penicillin sulfa drugs [...] breathing or swallowing Dizziness, weakness, or fainting 9780-7085 [employer]. [address] [place] [address], [place] [address]. All rights reserved. This information is not intended as a substitute for professional medical care. Always follow yourhealthcare professional's instructions. Additional Information VACCINATE! IT SAVES LIVES! Members of the community who have not yet received the COVID-19 vaccine and would like to receive it can visit one of [facility] vaccine clinics. There are many vaccine clinic locations within the [facility]. For locations and available times, please visit www.[email or web address]/. It is important to note that some COVID mobile vaccine clinics are held outdoors and may be canceled in rainy or stormy conditions. To learn more about pediatric vaccinations (ages 5-11), we invite you to visit the [facility] webpage. https://www.[facility].org/pages/1397-Dwctz-Jboalxyyufb-Cficiaesmw-Gfmyw-Hnx stions.htmlTo learn more about the COVID-19 vaccine, we invite you to visit the CDC website for a list of frequently asked questions. https://www.cdc.gov/coronavirus/2019-ncov/vaccines/faq.html [facility] Patient Portal Access Instructions: Stay connected with your healthcare team and access your personal medical information anytime with the [facility] Patient Portal. If you would like a full copy of your medical records please contact the [facility] Medical Records Department Wednesday through Wednesday between 8a.m. and 4:30p.m. Please follow the directions below to access the portal: 1.Access the email account you provided upon registration to the [facility].2.Look for an invitation email from [facility].3.Open the email and access the invitation link: Accept Invitation to [facility].Fill in the required brewster to create your [...] you will allow to register on the [facility] Patient Portal for access to your information. You can also access the [facility] Patient Portal on the [employer]. Simply click on Health Records under EzLike and then click on the [facility] logo. HOW TO SAFELY DISPOSE OF PRESCRIPTION [...] Call your local pharmacy or go to [email or web address] to find one close to you.3.Make use of household items: Use cat litter or old coffee grounds to dispose medications if other options arenot available. Mix your drugs with these household products, seal them in an airtight container andthrow it into the garbage. Call [facility]: [phone] to be sure your drugs can be [...] that I should contact my d octor. Patient/Transformer Shop Supervisor Signature: Date/Time: Relationship to Patient: Witness Name/Signature: Date/Time: [facility]02-28-2024 History of Present illness Narrative * Steve Ramirez APRN.INSTRUMENT REPAIRER HELPER - 07/14/2023 8:42 AM EST Images from [...] 30 tablet^Rfl: 0 flash glucose scanning reader (ORDISSIMOSTYLE ANA PAULA 2 READER)^1 Each once daily.^Disp: [...] NEEDED^Disp: 180 mL^Rfl: 2 flash glucose sensor (ORDISSIMOSTYLE ANA PAULA 2 SENSOR) kit^USE TO CHECK [...] Problems Paternal Grandfather Cancer Paternal Aunt other ([place]) Paternal Aunt Great aunt Colon Cancer No [...] of care. This note was generated using ProudOnTV software. It may contain errors in wording, punctuation, or spelling. Steve Ramirez APRN.JACINTA documented in this encounterTrihealth [facility]02-23-[facility] History of Present illness Narrative* Ana [...] PATIENT PRESENTS WITH AN IMPLANTABLE OR ATTACHED ROOM SERVICE WAITER/WAITRESS: No RADIOLOGY DEPARTMENT: General X-ray: Exam(s) Completed: Chest X-Ray PERIPHERAL IV DATA: Not applicable SIGNED BY: RT Luis(R) July 09, 2023 3:29 PM documented in this encounterTrihealth Bethes[facility] North Hospital02-23-2024 History of Present illness Narrative* Niranjan Stiles PA - 07/09/2023 3:27 PM EST Images from the original note were not included. This note was created using CrowdCompasster. Subjective Darren Reinoso is a 43 year [...] 30 tablet^Rfl: 0 flash glucose scanning reader (Soysuper ANA PAULA 2 READER)^1 Each once daily.^Disp: [...] Problems Paternal Grandfather Cancer Paternal Aunt other ([place]) Paternal Aunt Great aunt Colon Cancer No [...] ER evaluation. SKYLAR Flores documented in this encounterTrihealth [facility]hes[facility] North Hospital02-14-2024 History of Present illness Narrative* Shazia Lee PHARMACEUTICAL PROCESS ENGINEER.INSTRUMENT REPAIRER HELPER - 06/30/2023 4:16 PM EST This note was created using Fotechriter. Subjective Darren Reinoso is a 43 year [...] 30 tablet^Rfl: 0 flash glucose scanning reader (FREEContigo FinancialYLE ANA PAULA 2 READER)^1 Each once daily.^Disp: [...] Problems Paternal Grandfather Cancer Paternal Aunt other ([place]) Paternal Aunt Great aunt Colon Cancer No [...] and frontal sinus tenderness present. Mouth/Throat: Lips: [place]. No lesions. Mouth: Mucous membranes are moist. [...] COVID/influenza/rsv negative with aby Moss TEACHING PROVIDER (Physician/PA/PHARMACEUTICAL PROCESS ENGINEER) NOTE OF PERSONAL INVOLVEMENT IN CARE: I have personally seen and examined the patient and performed the medical decision-making components. I have reviewed the Advanced Practice Registered Nurse (PHARMACEUTICAL PROCESS ENGINEER) Student's documentation and verified the findings in the note as written. Any additions or changes are noted in bold/italics. Signature: Shazia Lee Date: 06/30/2023 Time: 6:53 PM documented in this encounterTrihealth Bethes[facility] North Hospital02-14-2024 Miscellaneous Notes* Telephone Encounter - Tete [...] sentences during call, wheezing at times 8. CZWAKQ-AVNY-DIFRJ: worse 9. OTHER SYMPTOMS: as above 10. HIGH RISK DISEASE: yes 11. VACCINE: see history 12. : no 13. O2 SATURATION MONITOR: as above Protocols used: COVID-19 - Diagnosed or Weprjbjdi-IIYPB-ET documented in this encounterTrihealth Bet[facility] North Hospital12-06-2023 History of Present illness Narrative* Ana [...] 21, 2023 2:38 PM documented in this encounterTrihealth Bethes[facility] North Hospital12-04-2023 Miscellaneous Notes* Telephone Encounter - Joyce [...] 01/23/2022 6.1 Please advise. Thank you. Joyce Fuentes. documented in this encounterTrihealth Bethes[facility] North Hospital12-04-2023 Miscellaneous Notes* Telephone Encounter - Hope [...] you. Hope Dickey LPN. documented in this encounterTrihealth Bethes[facility] North Hospital12-01-2023 Miscellaneous Notes* Telephone Encounter - Chaparrita [...] pt. Tarah Haider LPN documented in this encounterTrihealth Bethesda North Hospital11-27-2023 Instructions* Patient Instructions* Linda Reyez APRN.CNP [...] of LAGEVRIO during to this registry at [email or web address] or . For individuals who are sexually [...] virus. COVID-19 illnesses have ranged from very otsb-kl-wcjjup, including illness resulting in . While information [...] serious illnesses Take any medicines including prescription, ihvw-wsa-mysfayp medicines, vitamins, and herbal products. How do [...] NG or OG that is size 12 Uzbek (FR) or larger. If you miss a [...] to treat people with COVID-19. Go to https://www.fda.gov/gzhhtecmc-qdtwvojtcytf-fpr-response/yrr-fdhmhkaqjjmwjme-zfa- policy-framework/wazhufihn-tzn-wmhnaumbvhwan for more information. It is your choice [...] to FDA MedWatch at www.fda.gov/medwatch or call 3-015-GLZ-3774 (1666.598.4019). How should I store LAGEVRIO? Store LAGEVRIO capsules at room temperature between 68 F to 77 F (20 C to 25 C). Keep LAGEVRIO and all medicines out of the reach of children. How can I learn more about COVID-19? Ask your healthcare provider. Visit www.cdc.gov/COVID19 Contact your local or state public health department. Call [employer] at (toll free in the [place] Visit www.Our Nurses Network What Is an Emergency Use Authorization (EUA)? The [place] FDA has made LAGEVRIO available under an emergency access mechanism called an Emergency Use Authorization (EUA) The EUA is supported by a [place] of Health and Human Service (HHS)declaration that circumstances exist to justify emergency use of drugs and biological products during the COVID-19 pandemic. LAGEVRIO for the treatment of adults with a current diagnosis of nbus-yu-qfeplmnn COVID-19 who are at high risk for [...] be used under the EUA). Dannie. for: [employer] [address] For patent information: www.NOBLE PEAK VISION/research/patent Copyright Merck & Co[employer] Inc., [place], [place], [facility] and its affiliates. All rights reserved. [id number] Revised: June 2022 documented in this encounterTrihealth Bethesda North Hospital11-27-2023 History of Present illness Narrative* Linda [...] visit. Either the patient or their legal passenger relations representative has been informed of the risks [...] COVID. Presents via a virtual visit on [employer] platform. She does have a medical history significant for DM, HTN, EAMON, asthma, and obesity. No history of CKD, last kidney function done 02/2023 was within normal limits. She has had COVID previously. Symptoms of body aches, not feeling well. Follows with pulmonary with [facility]. Congested. She is on 3 liters home [...] by mouth daily with breakfast. Take with [employer] flash glucose scanning reader (Soysuper ANA PAULA 2 READER) 1 Each once [...] Complication, Without Long-Term Current Use of Insulin ([facility]) - 12/13/2017 Anxiety Plantar Fasciitis - 12/17/2016 Hyperlipidemia - 04/27/2016 Low Back Pain With Right-Sided Sciatica - 04/27/2016 Bilateral Hearing Loss - 05/09/2015 Bmi 50.0-59.9, Adult ([facility]) - 05/09/2015 Gerd (Gastroesophageal Reflux Disease) - [...] X2)-RITONAVIR 100 MG TABLET,DOSE PACK Linda Reyez APRN.INSTRUMENT REPAIRER HELPER Patient verbalizes understanding of instructions from today's [...] development. Linda Reyez APRN.JACINTA documented in this encounterTrihealth Bethes[facility] Hospital11-03-2023 Miscellaneous Notes* Telephone Encounter - Marita [...] you. Marita Gonzalez RN. documented in this encounterTrihealth Bethesda North Hospital10-18-2023 History of Present illness Narrative* Older, Caryn, PHARMACEUTICAL PROCESS ENGINEER.INSTRUMENT REPAIRER HELPER - 03/03/2023 12:32 PM EDT CC: Patient [...] Problems Paternal Grandfather Cancer Paternal Aunt other ([place]) Paternal Aunt Great aunt Colon Cancer No [...] - Instructed patient to contact office or rchqf-ij-pwyb after-hours promptly should condition worsen or any new symptoms appear. - [facility] and after hours crisis line - [...] plan. Caryn Lowery APRN.CNP documented in this encounterTrihealth Bethesda North Hospital10-02-2023 Procedure [facility]08-29-2023 Hospital Discharge instructions Patient Education 01/12/2023 [...] dyes and rinses, soaps, solvents, waxes, fingernail solomon islander, and deodorants Jewelry or watchbands made of [...] itching. You can buy this antihistamine at STAT-Diagnostica and CallGrader. It can make you sleepy, so use [...] skin Yellow-brown crusts on the open blisters 8654-8026 [employer]. [address] [place] [address]. All rights reserved. This information is not intended as a substitute for professional medical care. Always follow yourhealthcare professional's instructions. Follow Up Care 01/11/2023 23:11:44 With:BABAR PHILLIP MD Address: [address] [place] [address] When:2-4 days [facility] 08-29-2023 Note Discharge Instructions Thank you for allowing [facility] to assist you with your healthcare needs. The following is importantdischarge information regarding your hospital visit. Diagnosis from Today's Visit Itching What to Do Next Instructions from Your Care Team No qualifying data available. Post Acute Orders No qualifying data available. You Need to Schedule the Following Appointments Follow Up with BABAR PHILLIP MD When Within 2-4 days Where: [address] [facility] [place] [address]- Allergies amoxicillin codeine penicillin sulfa drugs [...] may report side effects to FDA at [phone]-RMU-9679. What other drugs will affect prednisone? Sometimes [...] may affect prednisone. This includes prescription and sccu-scb-mckppez medicines, vitamins, and herbal products. Not all [...] to ensure that the information provided by [employer]. ('Multum') is accurate, up-to-date, and complete, but no guarantee is made to that effect. Drug information contained herein may be time sensitive. OpDemand information has been compiled for use by healthcare practitioners and consumers in the [place] and therefore OpDemand does not warrant that uses outside of the [place] are appropriate, unless specifically indicated otherwise. iMapDatas drug information does not endorse drugs, diagnose patients or recommend therapy. iMapDatas drug information isan informational resource designed to [...] effective or appropriate for any given patient. OpDemand does not assume any responsibility for any aspect of healthcare administered with the aid of information OpDemand provides. The information contained herein is not intended to cover all possible uses, directions, precautions, warnings, drug interactions, allergic reactions, or adverse effects. If you have questions about the drugs you are taking, check with your doctor, nurse or pharmacist. Copyright 1204-8177 [employer]. Version: 10.. Revision Date: 08/11/2018. Education Materials [...] dyes and rinses, soaps, solvents, waxes, fingernail solomon islander, and deodorants Jewelry or watchbands made of [...] itching. You can buy this antihistamine at [employer] and CallGrader. It can make you sleepy, so use [...] skin Yellow-brown crusts on the open blisters 2272-7395 [employer]. [address] [place] [address]. All rights reserved. This information is not intended as a substitute for professional medical care. Always follow yourhealthcare professional's instructions. Additional Information VACCINATE! IT SAVES LIVES! Members of the community who have not yet received the COVID-19 vaccine and would like to receive it can visit one of [facility] vaccine clinics. There are many vaccine clinic locations within the [facility]. For locations and available times, please visit www.[email or web address].[email or web address]/. It is important to note that some COVID mobile vaccine clinics are held outdoors and may be canceled in rainy or stormy conditions. To learn more about pediatric vaccinations (ages 5-11), we invite you to visit the [facility] webpage. https://www.[facility].org/pages/3092-Rjmiw-Mhvojebxhmo-Sqvicxqjbb-Nicxl-Eaf stions.htmlTo learn more about the COVID-19 vaccine, we invite you to visit the CDC website for a list of frequently asked questions. https://www.cdc.gov/coronavirus/2019-ncov/vaccines/faq.html [facility] Patient Portal Access Instructions: Stay connected with your healthcare team and access your personal medical information anytime with the [facility] Patient Portal. If you would like a full copy of your medical records please contact the [facility] Medical Records Department Wednesday through Wednesday between 8a.m. and 4:30p.m. Please follow the directions below to access the portal: 1.Access the email account you provided upon registration to the [facility].2.Look for an invitation email from [facility].3.Open the email and access the invitation link: Accept Invitation to [facility]4.Fill in the required brewster to create your account. Sign into [email or web address] with your username and password that you [...] you will allow to register on the [facility] Patient Portal for access to your information. You can also access the [facility] Patient Portal on the [employer] dominguez. Simply click on Health Records under EzLike and then click on the Evelia logo. [...] Call your local pharmacy or go to [email or web address] to find one close to you.3.Make use of household items: Use cat litter or old coffee grounds to dispose medications if other options arenot available. Mix your drugs with these household products, seal them in an airtight container andthrow it into the garbage. Call [facility]: [phone] to be sure your drugs can be [...] that I should contact my d octor. Patient/Transformer Shop Supervisor Signature: Date/Time: Relationship to Patient: Witness Name/Signature: Date/Time: [facility]08-21-2023 Procedure [facility]08-17-2023 History of Present illness Narrative* Caryn Lowery APRN.INSTRUMENT REPAIRER HELPER - 12/31/2022 11:18 AM EDT CC: Patient [...] keep blood sugar up. Has seen a spindle maker and has follow up appointment in January. [...] to walk more for example walked around [place] for over an hour. REVIEW OF SYSTEMS [...] Problems Paternal Grandfather Cancer Paternal Aunt other ([place]) Paternal Aunt Great aunt Colon Cancer No [...] plan. Caryn Lowery APRN.CNP documented in this encounterTrihealth Bethes[facility] North Hospital08-07-2023 Instructions* Patient Instructions* Ginna Gonzales, RD - 12/21/2022 1:35 PM EDT 1. Follow partial liquid protein diet; have a nutrition drink 160-250 calories and 15-30 grams protein for breakfast and lunch and a fresh fruit with breakfast and lunch. (Protein drinks such as Bynum, Premier, Fit n Active at [employer]ion, generic protein drink at myMedScore, whey protein in skim or 1% milk) [...] such as Crystal Light , flavored water, Pzuef7G , Minute Maid light lemonade, Propel ) 5. Continue daily activities AND add exercise to at least 30 min cardio 5 days per week or as tolerated; add in weight resistance exercise, preferably 2-3 days per week documented in this encounterTrihealth Bethes[facility] Hospital08-07-2023 History of Present illness Narrative* Ginna [...] as Bynum, Premier, Fit n Active at [facility], generic protein drink at [facility], whey protein in skim or 1% milk) [...] such as Crystal Light , flavored water, Vsxom0J , Minute Maid light lemonade, Propel ) [...] few months) Vitamins/Supplements - no Food from [employer] Recovering addict for 16 years. Activity: Activities [...] Inflammation: no identifiable sources Education Materials Provided: 3525-8122 Calorie Partial Liquid Protein Diet READINESS TO [...] 2022 TIME: 1:04 PM documented in this encounterTrihealth Bethesda North Hospital08-07-2023 Miscellaneous Notes* Telephone Encounter - Shira Chang LPN - 12/21/2022 9:06 AM EDT Face[employer] phones requesting refills as follows: Requested Prescriptions Pending Prescriptions Disp Refills omeprazole (PRILOSEC) 40 mg capsule 30 capsule 5 Sig: Take 1 capsule by mouth daily before breakfast. 1/2 hr before meal. flash glucose sensor (FREESTYLE ANA PAULA 2 SENSOR) kit 2 Kit 3 Si Each once daily. ALONSO: 12/14/22 NOV: 12/31/22 Shira Chang LPN documented in this encounterTrihealth Bethesda [facility] Hospital07-28-2023 Miscellaneous Notes* Telephone Encounter - Barb [...] all of the above. documented in this encounterTrihealth Bethesda North Hospital07-27-2023 History of Present illness Narrative* Niranjan [...] can do at this point is a pnpoj-ca-npgy glucose. She declines. Nolab testing available at [...] close follow-up with PCP. documented in this encounterTrihealth Bethesda North Hospital07-11-2023 Miscellaneous Notes* Telephone Encounter - Evan [...] you. Silviano Root RN documented in this encounterTrihealth Bethesda North Hospital07-10-2023 History of Present illness Narrative* Caryn [...] Problems Paternal Grandfather Cancer Paternal Aunt other ([place]) Paternal Aunt Great aunt Colon Cancer No [...] complication, without long-term current use of insulin ([facility]) - ICD9: 250.00, ICD10: E11.9 (primary diagnosis) [...] (BMI) of 50.0 to 59.9 in adult ([facility]) - ICD9: 278.01, V85.43, ICD10: E66.1, Z68.43 [...] plan. Caryn Lowery APRN.CNP documented in this encounterTrihealth Bethesda North Hospital05-12-2023 Miscellaneous Notes* Telephone Encounter - Yuliana Bryson LPN - 09/25/2022 2:06 PM EDT ALONSO--08/24/22 NOV--11/23/22 LAST REFILL--04/15/22 LAST LABS--08/24/22 documented in this encounterTrihealth Bethesda North Hospital04-27-2023 History of Present illness Narrative* Duran Blunt MD - 09/10/2022 2:04 PM EDT Duran Blunt MD Department of Orthopaedics Orthopaedics [facility] [address] Dept: [phone] Dept September 10, 2022 CHIEF COMPLAINT: Pain [...] mild degenerative changes in the left shoulder. Revenue Cycle Specialist: PSCB Transcribe Date/Time: Aug 23 2022 4:12P [...] daily as needed. flash glucose scanning reader (Soysuper ANA PAULA 2 READER) 1 Each once [...] anxiety) Duran Blunt MD documented in this encounterTrihealth Bethesda [facility] Hospital04-20-2023 Miscellaneous Notes* Telephone Encounter - Marita [...] you. Marita Gonzalez RN documented in this encounterTrihealth Bethesda North Hospital04-14-2023 Miscellaneous Notes* Telephone Encounter - Marita [...] you. Marita Gonzalez RN documented in this encounterTrihealth Bethesda North Hospital04-10-2023 Miscellaneous Notes* Telephone Encounter - Kelli Mendoza RN - 08/24/2022 4:20 PM EDT Last Office Visit: 08/24/2022 Future Office Visit: 11/23/2022 Requested Prescriptions Pending Prescriptions Disp Refills dicyclomine (BENTYL) 20 mg tablet 28 tablet 0 Sig: Take 1 tablet by mouth four times daily as needed for up to 7 days. Date of Last Labs: 08/24/2022 documented in this encounter[address]10-2023 History of Present illness Narrative* Caryn Lowery, PHARMACEUTICAL PROCESS ENGINEER.INSTRUMENT REPAIRER HELPER - 08/24/2022 11:04 AM EDT CC: Patient [...] an upcoming appointment with Dr. Gary and [facility] for second opinion as patient is [...] daily as needed. flash glucose scanning reader (Soysuper ANA PAULA 2 READER) 1 Each once [...] Problems Paternal Grandfather Cancer Paternal Aunt other ([place]) Paternal Aunt Great aunt Colon Cancer No [...] per minute AXIS: Normal axis INTERVALS: Normal AL interval QRS COMPLEX: Normal ST SEGMENT: Normal [...] with more than 50% of the total mlvr-ag-ztnv time of the visit in counseling / coordination of care. Prescription instructions reviewed with patient as applicable. Potential red flag symptoms discussed with the patient. Reviewed appropriate action plan to take if red flag symptoms occur. Patient agreeable to treatment plan. Caryn Lowery APRN.CNP documented [place] encounterCarol [place] [address]-06-2023 History of Present illness Narrative* Ana Gunderson [...] 20, 2022 2:51 PM documented in this encounterTrihealth Bethesda North Hospital03-20-2023 Procedure [facility]03-14-2023 Miscellaneous Notes* Telephone Encounter - Joyce [...] advise patient. Thank you. documented in this encounterTrihealth Bethesda North [facility] Miscellaneous Notes* Telephone Encounter - Florencia Barrios RN - 07/22/2022 6:04 PM EST Spoke with patient. Given message from provider's office. Patient verbalizes understanding. Florencia Barrios RN * Telephone Encounter - Babar Phillip MD - 07/22/2022 5:52 PM EST Darren, you do not need us to certify or recommend for the medical marijuana, you will find those designated clinic in [place] and can make a sefl referral That's the most we can advice, Sorry Its a Clinic policy. Regards, Babar Phillip MD * Telephone Encounter - Marita Gonzalez RN - 07/22/2022 2:51 PM EST Patient calls to ask if provider would assist her to get an [place] green card for medical marijuana. Notified patient that [facility] provider's don't recommend or support medical marijuana. Patient asked that request be sent to provider to double check that provider isn't willing to writea recommendation. Marita Gonzalez RN documented in this encounterTrihealth [facility]03-08-2023 Miscellaneous Notes* Telephone Encounter - Katie [...] advise, Kelli Mendoza RN documented in this encounterTrihealth Bethesda North Hospital03-03-2023 Miscellaneous Notes* Telephone Encounter - Lela Mackey Sec - 07/17/2022 4:34 PM EST Progress notes dated 06/17/22 with SKYLAR Lauren were faxed for you to review; in Epic. Thanks. Lela Mackey documented in this encounterTrihealth Bethesda North [facility]03-03-2023 History of Present illness Narrative* Caryn [...] Problems Paternal Grandfather Cancer Paternal Aunt other ([place]) Paternal Aunt Great aunt Colon Cancer No [...] GI consult to Dr. Carranza office at [facility] - adding phenergan and dicyclomine as [...] plan. Caryn Lowery APRN.CNP documented in this encounterTrihealth Bethes[facility]03-02-2023 Miscellaneous Notes* Telephone Encounter - Flores [...] advise. Flores Yanes MA documented in this encounterTrihealth Bethes[facility] Hospital03-02-2023 Miscellaneous Notes* Telephone Encounter - Caryn Lowery APRN.CNP - 07/16/2022 3:01 PM EST Noted will review in appointment tomorrow. Thank you Caryn Lowery APRN.CNP * Telephone Encounter - Florencia Barrios RN - 07/16/2022 2:19 PM EST Patient calling to say she had an EGD and Colonoscopy at [facility] on 06/30/[address] Roque. She says the results were negative but she is still having stomach issues of right upper abdominal pain, poor appetite, nausea and diarrhea with some occasional rectal bleeding( about one teaspoon). Requesting follow up appointment. Scheduled tomorrow with Caryn. Florencia Barrios RN documented in this encounterTrihealth Bethesda North Hospital02-14-2023 Procedure note* Aravind Roque MD - 06/30/2022 2:43 PM [place] [address] IMMEDIATE POST ENDOSCOPY PROCEDURE NOTE Patient: ARLETHDARREN JOSEPH N M.D. [id number] F Status: REG [facility] AMB Report Date & Time: 06/30/22 1443 [...] By: ARAVIND ROQUE M.D. Tests performed at: [address] [address] documented in this encounterTrihealth Bethesda North Hospital02-01-2023 Instructions* Patient Instructions* Jared Lauren PA-C [...] If you do not have a responsible regional owner operator truck driver (family member or friend) withyou to take you home, your exam cannot be done with sedation and will be cancelled. Please bring a list of all of your current medications, including any Zouk-vfa-Dqxdhtk medications with you. Medications If you take [...] your procedure. 2 04/2019 documented in this encounterTrihealth Bethes[facility] North Hospital02-01-2023 History of Present illness Narrative* Jared [...] 17, 2022 2:23 PM documented in this encounterTrihealth Bethesda North Hospital01-25-2023 Miscellaneous Notes* Telephone Encounter - Teetee [...] is scheduled to see a provider in [place] regarding getting setup to have the EGD done. Due to her BMI she would need to be scoped at a hospital setting. Please advise patient if there is anything that she can do to help with her discomfort. Teetee Villareal documented in this encounterTrihealth Bethesda North Hospital01-18-2023 Instructions* Patient Instructions* Kelli Mendenhall PA-C [...] help alleviate reflux symptoms. documented in this encounterTrihealth Bethesda North Hospital01-18-2023 History of Present illness Narrative* Kelli [...] for internal providers or letter via the [employer] for external providers. HPI: Darren [...] it. Did vomit on Wednesdayafter eating at [employer] acquired by [employer] in [place]. Bowel movements are irregular. Can [...] Abs Lymph 1.00 - 4.00 k/uL 3.03 Stone% % 6.4 Abs Stone <0.87 k/uL 0.72 Eosin% % 3.8 Abs [...] 50 g^Rfl: 5 flash glucose scanning reader (Soysuper ANA PAULA 2 READER)^1 Each once daily.^Disp: [...] Problems Paternal Grandfather Cancer Paternal Aunt other ([place]) Paternal Aunt Great aunt Colon Cancer No [...] does not want to travel outside of [place] for testing. Was agreeable to go to [place] for scope if able. - EGD DIAGNOSTIC; [...] with more than 50% of the total epds-rs-oktu time of the visit in counseling / coordination of care. I have confirmed and edited as necessary, the PFSH and ROS obtained by others. Kelli Mendenhall PA-C June 03, 2022 3:59 PM documented in this encounterTrihealth Bethesda North Hospital01-12-2023 History of Present illness Narrative* Duran Blunt MD - 05/28/2022 3:27 PM EST Patient presents with: Right Knee - Established Patient, Knee Pain Duran Blunt MD Department of Orthopaedics Orthopaedics [facility] [address] Dept: [phone] Dept May 28, 2022 CHIEF COMPLAINT: Established [...] by mouth once daily. flash glucose sensor (ORDISSIMOSTYLE ANA PAULA 2 SENSOR) kit 1 Each once daily. potassium chloride (K-TAB) 10 mEq tablet Take 1 tablet by mouth daily with breakfast. Take with lasix diclofenac (VOLTAREN) 1 % topical gel Apply 2 g to affected area twice daily as needed. flash glucose scanning reader (ORDISSIMOSTYLE ANA PAULA 2 READER) 1 Each once [...] anxiety) Duran Blunt MD documented in this encounterTrihealth Bethesda North Hospital2023 History of Present illness Narrative* Caryn Lowery, PHARMACEUTICAL PROCESS ENGINEER.INSTRUMENT REPAIRER HELPER - 05/25/2022 10:48 AM EST CC: Patient [...] Problems Paternal Grandfather Cancer Paternal Aunt other ([place]) Paternal Aunt Great aunt Social History Tobacco [...] plan. Caryn Lowery APRN.CNP documented in this encounterTrihealth Bethesda North Hospital01-06-2023 Miscellaneous Notes* Telephone Encounter - Katie [...] asking for rx to be sent to [place] [facility]. Patient has no glucose meter to double check blood sugar with the Ana Paula sensor. Pending rx to file Please advise * Telephone Encounter - Silviano Root RN - 05/22/2022 10:41 AM EST Patient reports she spoke with [facility] last night because her BS went as low as 62. Was advised to ER but did not go. Reports BS yesterday- 95 fasting, 182 after breakfast, 66 before lunch, 70 after lunch, 89 before dinner, 70 after dinner, 64 before bed, 62 when called NOC at 1 am. Reports she did noteat much food yesterday. Reports after speaking with [facility] ate 3 TBLs sugar in warm water, 4 packs ofsour patch candy, peanut butter, and ron crackers. At 3 am blood sugar was 114. Today fasting 95, next check 77, now- 84. Reports she is not taking any diabetic medications, has been out of the injectable for 3 months. Reports blood sugar readings on 05-18-22: 159, 102, 70, 160, 87, 106, 73. Patient scheduled appt with [facility] for Wednesday. Patient declined same day appt [...] reading with another device. documented in this encounterTrihealth Bethes[facility] Hospital01-06-2023 Miscellaneous Notes* Telephone Encounter - Katie [...] Advice Protocols used: Diabetes - Low Blood Otnyr-JKYYT-DJ documented in this encounterTrihealth Bethesda North Hospital01-03-2023 Miscellaneous Notes* Telephone Encounter - Tete [...] you. Tete Gonzalez RN documented in this encounterTrihealth Bethesda North Hospital12-30-2022 Miscellaneous Notes* Telephone Encounter - Marita [...] you. Marita Gonzalez RN documented in this encounterTrihealth Bethesda North Hospital12-29-2022 Miscellaneous Notes* Telephone Encounter - Florencia Barrios RN - 05/14/2022 2:21 PM EST [facility] calling on behalf of patient for [...] you. Florencia Barrios RN documented in this encounterTrihealth Bethesda North Hospital12-28-2022 Miscellaneous Notes* Telephone Encounter - Deloris Cullen RN - 05/13/2022 9:25 AM EST Phone call to patient. Notified of provider's message below and she verbalized understanding. Appointment scheduled with Dr. Blunt on , 05/28 at [place] location. * Telephone Encounter - Leilani Mahmood [...] tomorrow. Manju Alejandre LPN documented in this encounterTrihealth Bethesda North Hospital11-30-2022 Miscellaneous Notes* Telephone Encounter - Caryn Lowery APRN.CNP - 04/15/2022 7:19 PM EST Discussed in appointment. Caryn Lowery APRN.JACINTA * Telephone Encounter - Samira Lazo - 04/15/2022 10:42 AM EST Patient called stating she has an appt today with Caryn and a CT scheduled for the 8th at [place]. She is asking if she needs to keep appointment today and if she should try to have CT scheduled sooner. Please call patient and advise. documented in this encounterTrihealth Bethesda North Hospital11-30-2022 History of Present illness Narrative* Caryn Lowery, PHARMACEUTICAL PROCESS ENGINEER.INSTRUMENT REPAIRER HELPER - 04/15/2022 2:43 PM EST CC: Patient presents with: Recheck: Follow up HPI Darren Reinoso is a 42 year old female who presents today for abdominal pain nausea and decreased appetite. Did not get CT scan completed as ordered. Did take the antibiotics that were prescribed. [facility] to [facility]. Did [...] 21 tablet^Rfl: 0 flash glucose scanning reader (Soysuper ANA PAULA 2 READER)^1 Each once daily.^Disp: [...] Problems Paternal Grandfather Cancer Paternal Aunt other ([place]) Paternal Aunt Great aunt Social History Tobacco [...] plan. Caryn Lowery APRN.CNP documented in this encounterTrihealth Bethesda North Hospital11-28-2022 Miscellaneous Notes* Telephone Encounter - Babar [...] one. Please advise patient. documented in this encounterTrihealth Bethesda North Hospital11-23-2022 History of Present illness Narrative* Caryn Lowery, LILI.INSTRUMENT REPAIRER HELPER - 04/08/2022 2:34 PM EST CC: Patient [...] (Sulfonamide Antibiotics) MEDICATIONS flash glucose scanning reader (ORDISSIMOSTYLE ANA PAULA 2 READER)^1 Each once daily.^Disp: [...] Problems Paternal Grandfather Cancer Paternal Aunt other ([place]) Paternal Aunt Great aunt Social History Tobacco [...] plan. Caryn Lowery APRN.CNP documented in this encounterTrihealth Bethesda North Hospital11-14-2022 History of Present illness Narrative* Shazia [...] 30, 2022 11:07 AM documented in this encounterTrihealth Bethesda North Hospital11-09-2022 History of Present illness Narrative* Caryn Lowery APRN.INSTRUMENT REPAIRER HELPER - 03/25/2022 5:56 PM EST CC: Patient [...] finger but was told her insurance covers [place]. Patient's last HgA1C was Hemoglobin A1C (%) [...] Problems Paternal Grandfather Cancer Paternal Aunt other ([place]) Paternal Aunt Great aunt Social History Tobacco [...] plan. Caryn Lowery APRN.CNP documented in this encounterTrihealth Bethes[facility] Hospital11-04-2022 Miscellaneous Notes* Telephone Encounter - Chaparrita [...] you. Chaparrita Paez RN documented in this encounterTrihealth Bethesda North Hospital10-25-2022 Miscellaneous Notes* Telephone Encounter - Babar [...] fever, but feeling colder Protocols used: Rectal Xitfducw-[id number]-CI documented in this encounterTrihealth Bethesda North Hospital10-07-2022 History of Present illness Narrative* Caryn [...] Problems Paternal Grandfather Cancer Paternal Aunt other ([place]) Paternal Aunt Great aunt Social History Tobacco [...] plan. Caryn Lowery APRN.CNP documented in this encounterTrihealth Bethes[facility] Hospital09-26-2022 History of Present illness Narrative* Ana [...] 09, 2022 2:44 PM documented in this encounterTrihealth Bethesda North Hospital09-21-2022 Miscellaneous Notes* Telephone Encounter - Chaparrita Paez RN - 02/04/2022 11:43 AM EDT [...] - 02/03/2022 11:13 AM EDT [facility] and they report pt has caresource insurance. This is not what we have. Pts IDnumber is [id number] BIN [id number] Rx group [id number]. Pharmacy report there is no insurance covering this new medicine for weight loss. darren reinoso Araujo: [id number] - PA help? Call us at Status Sent to [facility] Mounjaro 2.5MG/0.5ML pen-injectors Form [employer] Medicaid Electronic Prior Authorization Request Form (2016 [facility]) * Telephone Encounter - Tarah Haider LPN [...] - 01/23/2022 1:46 PM EDT Tracie from [facility] states pts medication Tirepatide ( Mounjaro) is coming up needing prior Authorization with number . documented in this encounterTrihealth Bethesda North Hospital09-12-2022 Miscellaneous Notes* Telephone Encounter - Katie [...] inflammation. Pt was scheduled with Caryn Lowery DES[facility] tomorrow at 1140 am. Pt wasalso reporting that she has been trying to get her PT records from [facility] sent to [place] [facility], and they told her she needs to fill out a consent form. If provider could have the form forPt to fill out so we could get those forms sent over for her, then she would be able to get her back injections. documented in this encounterTrihealth Bethesda North Hospital08-09-2022 Miscellaneous Notes* Telephone Encounter - Elle [...] TABLET BY MOUTH DAILY documented in this encounterTrihealth Bethesda North Hospital08-08-2022 Instructions* Patient Instructions* Anu Lowery APRN.CNP [...] worsening infection, call immediately. documented in this encounterTrihealth Bethesda North Hospital08-08-2022 History of Present illness Narrative* Anu [...] Problems Paternal Grandfather Cancer Paternal Aunt other ([place]) Paternal Aunt Great aunt Social History Tobacco [...] plan. Anu Lowery APRN.CNP documented in this encounterTrihealth Bethesda North Hospital08-05-2022 Instructions* Patient Instructions* Sheri De La [...] PCP for further treatment documented in this encounterTrihealth Bethesda North Hospital08-05-2022 History of Present illness Narrative* Sheri [...] have confirmed and edited as necessary, the [facility] Review of Systems Constitutional: Negative for [...] De La Cruz APRN.CNP documented in this encounterTrihealth Bethesda North Hospital08-05-2022 Miscellaneous Notes* Telephone Encounter - Caryn [...] size of quarter. Advised to go to [facility] for evaluation. documented in this encounterTrihealth Bethesda North Hospital06-10-2022 Miscellaneous Notes* Telephone Encounter - Caryn [...] This can still be done by calling [phone] for a peer to peer or by faxing for an appeal at [phone] or by mailing appeal to [employer] Attention Appeals Dept. [address] [place] [address] The patient can not be scheduled for this test until this has been done in some form documented in this encounterCleveland [id number] History of Present illness Narrative* Caryn Lowery, PHARMACEUTICAL PROCESS ENGINEER.INSTRUMENT REPAIRER HELPER - 10/20/2021 1:33 PM EDT CC: Patient [...] Problems Paternal Grandfather Cancer Paternal Aunt other ([place]) Paternal Aunt Great aunt Social History Tobacco [...] plan. Caryn Lowery APRN.CNP documented in this encounterTrihealth Bethesda North Hospital05-17-2022 Miscellaneous Notes* Telephone Encounter - Shira Chang LPN - 09/30/2021 3:34 PM EDT Erik calling for refill. ALONSO: 07/03/21. No outstanding labs NOV: 10/20/21 Last Refill: 04/08/21 #[phone] 5 refills Shira Chang LPN documented in this encounterTrihealth Bethesda North Hospital05-16-2022 Miscellaneous Notes* Telephone Encounter - Caryn [...] advise, Marita Gonzalez RN documented in this encounterTrihealth Bethesda North Hospital05-11-2022 Miscellaneous Notes* Telephone Encounter - Marita [...] you. Marita Gonzalez RN documented in this encounterTrihealth Bethesda North Hospital03-21-2022 History of Present illness Narrative* Duran Blunt MD - 08/04/2021 2:52 PM EDT Duran Blunt MD Department of Orthopaedics Orthopaedics [address] [facility] [address] Dept: [phone] Dept August 04, 2021 CHIEF COMPLAINT: Post [...] Antibiotics) Duran Blunt MD documented in this encounterTrihealth Bethesda North Hospital12-09-2021 History of Present illness Narrative* Brittney [...] 24, 2021 11:48 AM documented in this encounterTrihealth Bethesda North Hospital10-27-2021 History of Present illness Narrative* Ana [...] 12, 2021 2:21 PM documented in this encounterTrihealth Bethesda North Hospital09-10-2021 History of Present illness Narrative* Brittney [...] 24, 2021 3:50 PM documented in this encounterTrihealth Bethesda North Hospital07-27-2021 NoteHNO ID: [id number] Author: RT Jennifer(R) Service: Radiology Author Type: Business Analytics Manager Type: Progress Notes Filed: 12/10/2020 6:45 PM [...] BY: RT Jennifer(R) December 10, 2020 6:31 PMGreen Cross [id number] History of Present illness Narrative* Ana Gunderson RT(R) - 11/12/2020 11:10 AM EDT Radiology Service Progress Note PATIENT NAME: Darren Reinoos DATE OF SERVICE: November 12, 2020 TIME: [...] 12, 2020 11:20 AM documented in this encounterTrihealth Bethesda North Hospital10-10-2018 History of Past illness Narrative* Problem Noted Date Resolved Date Epicondylitis, lateral, left 02/23/2018 Overview: Added automatically from request for surgery [id number] Controlled type 2 diabetes m ellitus without complication, without long-term current use of insulin 12/13/2017 06/29/2018 Right elbow pain 03/11/2017 11/02/2019 Overview: Added automatically from request for surgery [id number] Right lateral epicondylitis 03/11/201710/15 Overview: Added automatically from request for surgery [id number] Rectal bleeding 02/25/2017 11/02/2019 Overview: Added automatically from request for surgery [id number] Elbow pain, right 12/17/2016 11/02/2019 Overview: Has [...] of this encounter (statuses as of 08/25/2021) [facility]10-10-[facility] History of Past illness Narrative* Problem Noted Date Resolved Date Epicondylitis, lateral, left 02/23/2018 Overview: Added automatically from request for surgery [id number] Controlled type 2 diabetes m ellitus without complication, without long-term current use of insulin 12/13/2017 06/29/2018 Right elbow pain 03/11/2017 11/02/2019 Overview: Added automatically from request for surgery [id number] Right lateral epicondylitis 03/11/201710/15 Overview: Added automatically from request for surgery [id number] Rectal bleeding 02/25/2017 11/02/2019 Overview: Added automatically from request for surgery [id number] Elbow pain, right 12/17/2016 11/02/2019 Overview: Has [...] of this encounter (statuses as of 09/24/2021) [facility]10[facility] History of Past illness Narrative* Problem Noted Date Resolved Date Epicondylitis, lateral, left 02/23/2018 Overview: Added automatically from request for surgery [id number] Controlled type 2 diabetes m ellitus without complication, without long-term current use of insulin 12/13/2017 06/29/2018 Right elbow pain 03/11/2017 11/02/2019 Overview: Added automatically from request for surgery [id number] Right lateral epicondylitis 03/11/201710/15 Overview: Added automatically from request for surgery [id number] Rectal bleeding 02/25/2017 11/02/2019 Overview: Added automatically from request for surgery [id number] Elbow pain, right 12/17/2016 11/02/2019 Overview: Has [...] of this encounter (statuses as of 09/29/2021) [facility] History of Past illness Narrative* Problem Noted Date Resolved Date Epicondylitis, lateral, left 02/23/2018 Overview: Added automatically from request for surgery [id number] Controlled type 2 diabetes m ellitus without complication, without long-term current use of insulin 12/13/2017 06/29/2018 Right elbow pain 03/11/2017 11/02/2019 Overview: Added automatically from request for surgery [id number] Right lateral epicondylitis 03/11/201710/15 Overview: Added automatically from request for surgery [id number] Rectal bleeding 02/25/2017 11/02/2019 Overview: Added automatically from request for surgery [id number] Elbow pain, right 12/17/2016 11/02/2019 Overview: Has [...] of this encounter (statuses as of 10/01/2021) [facility] of Past illness Narrative* Problem Noted Date Resolved Date Epicondylitis, lateral, left 02/23/2018 Overview: Added automatically from request for surgery [id number] Controlled type 2 diabetes m ellitus without complication, without long-term current use of insulin 12/13/2017 06/29/2018 Right elbow pain 03/11/2017 11/02/2019 Overview: Added automatically from request for surgery [id number] Right lateral epicondylitis 03/11/201710/15 Overview: Added automatically from request for surgery [id number] Rectal bleeding 02/25/2017 11/02/2019 Overview: Added automatically from request for surgery [id number] Elbow pain, right 12/17/2016 11/02/2019 Overview: Has [...] of this encounter (statuses as of 10/10/2021) [facility] of Past illness Narrative* Problem Noted Date Resolved Date Epicondylitis, lateral, left 02/23/2018 Overview: Added automatically from request for surgery [id number] Controlled type 2 diabetes m ellitus without complication, without long-term current use of insulin 12/13/2017 06/29/2018 Right elbow pain 03/11/2017 11/02/2019 Overview: Added automatically from request for surgery [id number] Right lateral epicondylitis 03/11/201710/15 Overview: Added automatically from request for surgery [id number] Rectal bleeding 02/25/2017 11/02/2019 Overview: Added automatically from request for surgery [id number] Elbow pain, right 12/17/2016 11/02/2019 Overview: Has [...] of this encounter (statuses as of 10/20/2021) [facility] of Past illness Narrative* Problem Noted Date Resolved Date Epicondylitis, lateral, left 02/23/2018 Overview: Added automatically from request for surgery [id number] Controlled type 2 diabetes m ellitus without complication, without long-term current use of insulin 12/13/2017 06/29/2018 Right elbow pain 03/11/2017 11/02/2019 Overview: Added automatically from request for surgery [id number] Right lateral epicondylitis 03/11/201710/15 Overview: Added automatically from request for surgery [id number] Rectal bleeding 02/25/2017 11/02/2019 Overview: Added automatically from request for surgery [id number] Elbow pain, right 12/17/2016 11/02/2019 Overview: Has [...] of this encounter (statuses as of 10/24/2021) [facility] of Past illness Narrative* Problem Noted Date Resolved Date Epicondylitis, lateral, left 02/23/2018 Overview: Added automatically from request for surgery [id number] Controlled type 2 diabetes m ellitus without complication, without long-term current use of insulin 12/13/2017 06/29/2018 Right elbow pain 03/11/2017 11/02/2019 Overview: Added automatically from request for surgery [id number] Right lateral epicondylitis 03/11/201710/15 Overview: Added automatically from request for surgery [id number] Rectal bleeding 02/25/2017 11/02/2019 Overview: Added automatically from request for surgery [id number] Elbow pain, right 12/17/2016 11/02/2019 Overview: Has [...] of this encounter (statuses as of 12/19/2021) [facility] of Past illness Narrative* Problem Noted Date Resolved Date Epicondylitis, lateral, left 02/23/2018 Overview: Added automatically from request for surgery [id number] Controlled type 2 diabetes m rubinaitus without complication, without long-term current use of insulin 12/13/2017 06/29/2018 Right elbow pain 03/11/2017 11/02/2019 Overview: Added automatically from request for surgery [id number] Right lateral epicondylitis 03/11/201710/15 Overview: Added automatically from request for surgery [id number] Rectal bleeding 02/25/2017 11/02/2019 Overview: Added automatically from request for surgery [id number] Elbow pain, right 12/17/2016 11/02/2019 Overview: Has [...] of this encounter (statuses as of 12/19/2021) [facility]10-10-2018 History of Past illness Narrative* Problem Noted Date Resolved Date Epicondylitis, lateral, left 02/23/2018 Overview: Added automatically from request for surgery [id number] Controlled type 2 diabetes m [place] without complication, without long-term current use of insulin 12/13/2017 06/29/2018 Right elbow pain 03/11/2017 11/02/2019 Overview: Added automatically from request for surgery [id number] Right lateral epicondylitis 03/11/201710/15 Overview: Added automatically from request for surgery [id number] Rectal bleeding 02/25/2017 11/02/2019 Overview: Added automatically from request for surgery [id number] Elbow pain, right 12/17/2016 11/02/2019 Overview: Has [...] of this encounter (statuses as of 12/22/2021) [facility] History of Past illness Narrative* Problem Noted Date Resolved Date Epicondylitis, lateral, left 02/23/2018 Overview: Added automatically from request for surgery [id number] Controlled type 2 diabetes m ellitus without complication, without long-term current use of insulin 12/13/2017 06/29/2018 Right elbow pain 03/11/2017 11/02/2019 Overview: Added automatically from request for surgery [id number] Right lateral epicondylitis 03/11/201710/15 Overview: Added automatically from request for surgery [id number] Rectal bleeding 02/25/2017 11/02/2019 Overview: Added automatically from request for surgery [id number] Elbow pain, right 12/17/2016 11/02/2019 Overview: Has [...] of this encounter (statuses as of 12/24/2021) [facility] History of Past illness Narrative* Problem Noted Date Resolved Date Epicondylitis, lateral, left 02/23/2018 Overview: Added automatically from request for surgery [id number] Controlled type 2 diabetes m ellitus without complication, without long-term current use of insulin 12/13/2017 06/29/2018 Right elbow pain 03/11/2017 11/02/2019 Overview: Added automatically from request for surgery [id number] Right lateral epicondylitis 03/11/201710/15 Overview: Added automatically from request for surgery [id number] Rectal bleeding 02/25/2017 11/02/2019 Overview: Added automatically from request for surgery [id number] Elbow pain, right 12/17/2016 11/02/2019 Overview: Has [...] of this encounter (statuses as of 01/26/2022) [facility] History of Past illness Narrative* Problem Noted Date Resolved Date Epicondylitis, lateral, left 02/23/2018 Overview: Added automatically from request for surgery [id number] Controlled type 2 diabetes m ellitus without complication, without long-term current use of insulin 12/13/2017 06/29/2018 Right elbow pain 03/11/2017 11/02/2019 Overview: Added automatically from request for surgery [id number] Right lateral epicondylitis 03/11/201710/15 Overview: Added automatically from request for surgery [id number] Rectal bleeding 02/25/2017 11/02/2019 Overview: Added automatically from request for surgery [id number] Elbow pain, right 12/17/2016 11/02/2019 Overview: Has [...] of this encounter (statuses as of 02/02/2022) [facility] History of Past illness Narrative* Problem Noted Date Resolved Date Epicondylitis, lateral, left 02/23/2018 Overview: Added automatically from request for surgery [id number] Controlled type 2 diabetes m ellitus without complication, without long-term current use of insulin 12/13/2017 06/29/2018 Right elbow pain 03/11/2017 11/02/2019 Overview: Added automatically from request for surgery [id number] Right lateral epicondylitis 03/11/201710/15 Overview: Added automatically from request for surgery [id number] Rectal bleeding 02/25/2017 11/02/2019 Overview: Added automatically from request for surgery [id number] Elbow pain, right 12/17/2016 11/02/2019 Overview: Has [...] of this encounter (statuses as of 02/04/2022) [facility] History of Past illness Narrative* Problem Noted Date Resolved Date Epicondylitis, lateral, left 02/23/2018 Overview: Added automatically from request for surgery [id number] Controlled type 2 diabetes m rubinaitus without complication, without long-term current use of insulin 12/13/2017 06/29/2018 Right elbow pain 03/11/2017 11/02/2019 Overview: Added automatically from request for surgery [id number] Right lateral epicondylitis 03/11/201710/15 Overview: Added automatically from request for surgery [id number] Rectal bleeding 02/25/2017 11/02/2019 Overview: Added automatically from request for surgery [id number] Elbow pain, right 12/17/2016 11/02/2019 Overview: Has [...] of this encounter (statuses as of 02/20/2022) [facility] History of Past illness Narrative* Problem Noted Date Resolved Date Epicondylitis, lateral, left 02/23/2018 Overview: Added automatically from request for surgery [id number] Controlled type 2 diabetes m [place] without complication, without long-term current use of insulin 12/13/2017 06/29/2018 Right elbow pain 03/11/2017 11/02/2019 Overview: Added automatically from request for surgery [id number] Right lateral epicondylitis 03/11/201710/15 Overview: Added automatically from request for surgery [id number] Rectal bleeding 02/25/2017 11/02/2019 Overview: Added automatically from request for surgery [id number] Elbow pain, right 12/17/2016 11/02/2019 Overview: Has [...] of this encounter (statuses as of 03/10/2022) [facility] History of Past illness Narrative* Problem Noted Date Resolved Date Epicondylitis, lateral, left 02/23/2018 Overview: Added automatically from request for surgery [id number] Controlled type 2 diabetes m ellitus without complication, without long-term current use of insulin 12/13/2017 06/29/2018 Right elbow pain 03/11/2017 11/02/2019 Overview: Added automatically from request for surgery [id number] Right lateral epicondylitis 03/11/201710/15 Overview: Added automatically from request for surgery [id number] Rectal bleeding 02/25/2017 11/02/2019 Overview: Added automatically from request for surgery [id number] Elbow pain, right 12/17/2016 11/02/2019 Overview: Has [...] of this encounter (statuses as of 03/20/2022) [facility] History of Past illness Narrative* Problem Noted Date Resolved Date Epicondylitis, lateral, left 02/23/2018 Overview: Added automatically from request for surgery [id number] Controlled type 2 diabetes m ell[place] without complication, without long-term current use of insulin 12/13/2017 06/29/2018 Right elbow pain 03/11/2017 11/02/2019 Overview: Added automatically from request for surgery [id number] Right lateral epicondylitis 03/11/201710/15 Overview: Added automatically from request for surgery [id number] Rectal bleeding 02/25/2017 11/02/2019 Overview: Added automatically from request for surgery [id number] Elbow pain, right 12/17/2016 11/02/2019 Overview: Has [...] of this encounter (statuses as of 03/25/2022) [facility] History of Past illness Narrative* Problem Noted Date Resolved Date Epicondylitis, lateral, left 02/23/2018 Overview: Added automatically from request for surgery [id number] Controlled type 2 diabetes m ell[place] without complication, without long-term current use of insulin 12/13/2017 06/29/2018 Right elbow pain 03/11/2017 11/02/2019 Overview: Added automatically from request for surgery [id number] Right lateral epicondylitis 03/11/201710/15 Overview: Added automatically from request for surgery [id number] Rectal bleeding 02/25/2017 11/02/2019 Overview: Added automatically from request for surgery [id number] Elbow pain, right 12/17/2016 11/02/2019 Overview: Has [...] of this encounter (statuses as of 04/08/2022) [facility] History of Past illness Narrative* Problem Noted Date Resolved Date Epicondylitis, lateral, left 02/23/2018 Overview: Added automatically from request for surgery [id number] Controlled type 2 diabetes m ell[place] without complication, without long-term current use of insulin 12/13/2017 06/29/2018 Right elbow pain 03/11/2017 11/02/2019 Overview: Added automatically from request for surgery [id number] Right lateral epicondylitis 03/11/201710/15 Overview: Added automatically from request for surgery [id number] Rectal bleeding 02/25/2017 11/02/2019 Overview: Added automatically from request for surgery [id number] Elbow pain, right 12/17/2016 11/02/2019 Overview: Has [...] of this encounter (statuses as of 04/13/2022) [facility] History of Past illness Narrative* Problem Noted Date Resolved Date Epicondylitis, lateral, left 02/23/2018 Overview: Added automatically from request for surgery [id number] Controlled type 2 diabetes m ell[place] without complication, without long-term current use of insulin 12/13/2017 06/29/2018 Right elbow pain 03/11/2017 11/02/2019 Overview: Added automatically from request for surgery [id number] Right lateral epicondylitis 03/11/201710/15 Overview: Added automatically from request for surgery [id number] Rectal bleeding 02/25/2017 11/02/2019 Overview: Added automatically from request for surgery [id number] Elbow pain, right 12/17/2016 11/02/2019 Overview: Has [...] of this encounter (statuses as of 04/15/2022) [facility] History of Past illness Narrative* Problem Noted Date Resolved Date Epicondylitis, lateral, left 02/23/2018 Overview: Added automatically from request for surgery [id number] Controlled type 2 diabetes m ell[place] without complication, without long-term current use of insulin 12/13/2017 06/29/2018 Right elbow pain 03/11/2017 11/02/2019 Overview: Added automatically from request for surgery [id number] Right lateral epicondylitis 03/11/201710/15 Overview: Added automatically from request for surgery [id number] Rectal bleeding 02/25/2017 11/02/2019 Overview: Added automatically from request for surgery [id number] Elbow pain, right 12/17/2016 11/02/2019 Overview: Has [...] of this encounter (statuses as of 04/15/2022) [facility] History of Past illness Narrative* Problem Noted Date Resolved Date Epicondylitis, lateral, left 02/23/2018 Overview: Added automatically from request for surgery [id number] Controlled type 2 diabetes m ell[place] without complication, without long-term current use of insulin 12/13/2017 06/29/2018 Right elbow pain 03/11/2017 11/02/2019 Overview: Added automatically from request for surgery [id number] Right lateral epicondylitis 03/11/201710/15 Overview: Added automatically from request for surgery [id number] Rectal bleeding 02/25/2017 11/02/2019 Overview: Added automatically from request for surgery [id number] Elbow pain, right 12/17/2016 11/02/2019 Overview: Has [...] of this encounter (statuses as of 05/19/2022) [facility] History of Past illness Narrative* Problem Noted Date Resolved Date Epicondylitis, lateral, left 02/23/2018 Overview: Added automatically from request for surgery [id number] Controlled type 2 diabetes m ell[place] without complication, without long-term current use of insulin 12/13/2017 06/29/2018 Right elbow pain 03/11/2017 11/02/2019 Overview: Added automatically from request for surgery [id number] Right lateral epicondylitis 03/11/201710/15 Overview: Added automatically from request for surgery [id number] Rectal bleeding 02/25/2017 11/02/2019 Overview: Added automatically from request for surgery [id number] Elbow pain, right 12/17/2016 11/02/2019 Overview: Has [...] of this encounter (statuses as of 05/20/2022) [facility] History of Past illness Narrative* Problem Noted Date Resolved Date Epicondylitis, lateral, left 02/23/2018 Overview: Added automatically from request for surgery [id number] Controlled type 2 diabetes m ell[place] without complication, without long-term current use of insulin 12/13/2017 06/29/2018 Right elbow pain 03/11/2017 11/02/2019 Overview: Added automatically from request for surgery [id number] Right lateral epicondylitis 03/11/201710/15 Overview: Added automatically from request for surgery [id number] Rectal bleeding 02/25/2017 11/02/2019 Overview: Added automatically from request for surgery [id number] Elbow pain, right 12/17/2016 11/02/2019 Overview: Has [...] of this encounter (statuses as of 05/20/2022) [facility] History of Past illness Narrative* Problem Noted Date Resolved Date Epicondylitis, lateral, left 02/23/2018 Overview: Added automatically from request for surgery [id number] Controlled type 2 diabetes m ell[place] without complication, without long-term current use of insulin 12/13/2017 06/29/2018 Right elbow pain 03/11/2017 11/02/2019 Overview: Added automatically from request for surgery [id number] Right lateral epicondylitis 03/11/201710/15 Overview: Added automatically from request for surgery [id number] Rectal bleeding 02/25/2017 11/02/2019 Overview: Added automatically from request for surgery [id number] Elbow pain, right 12/17/2016 11/02/2019 Overview: Has [...] of this encounter (statuses as of 05/21/2022) [facility] History of Past illness Narrative* Problem Noted Date Resolved Date Epicondylitis, lateral, left 02/23/2018 Overview: Added automatically from request for surgery [id number] Controlled type 2 diabetes m ell[place] without complication, without long-term current use of insulin 12/13/2017 06/29/2018 Right elbow pain 03/11/2017 11/02/2019 Overview: Added automatically from request for surgery [id number] Right lateral epicondylitis 03/11/201710/15 Overview: Added automatically from request for surgery [id number] Rectal bleeding 02/25/2017 11/02/2019 Overview: Added automatically from request for surgery [id number] Elbow pain, right 12/17/2016 11/02/2019 Overview: Has [...] of this encounter (statuses as of 05/22/2022) [facility] History of Past illness Narrative* Problem Noted Date Resolved Date Epicondylitis, lateral, left 02/23/2018 Overview: Added automatically from request for surgery [id number] Controlled type 2 diabetes m ell[place] without complication, without long-term current use of insulin 12/13/2017 06/29/2018 Right elbow pain 03/11/2017 11/02/2019 Overview: Added automatically from request for surgery [id number] Right lateral epicondylitis 03/11/201710/15 Overview: Added automatically from request for surgery [id number] Rectal bleeding 02/25/2017 11/02/2019 Overview: Added automatically from request for surgery [id number] Elbow pain, right 12/17/2016 11/02/2019 Overview: Has [...] of this encounter (statuses as of 05/23/2022) [facility] History of Past illness Narrative* Problem Noted Date Resolved Date Epicondylitis, lateral, left 02/23/2018 Overview: Added automatically from request for surgery [id number] Controlled type 2 diabetes m rubinaitus without complication, without long-term current use of insulin 12/13/2017 06/29/2018 Right elbow pain 03/11/2017 11/02/2019 Overview: Added automatically from request for surgery [id number] Right lateral epicondylitis 03/11/201710/15 Overview: Added automatically from request for surgery [id number] Rectal bleeding 02/25/2017 11/02/2019 Overview: Added automatically from request for surgery [id number] Elbow pain, right 12/17/2016 11/02/2019 Overview: Has [...] of this encounter (statuses as of 05/25/2022) [facility] History of Past illness Narrative* Problem Noted Date Resolved Date Epicondylitis, lateral, left 02/23/2018 Overview: Added automatically from request for surgery [id number] Controlled type 2 diabetes m ell[place] without complication, without long-term current use of insulin 12/13/2017 06/29/2018 Right elbow pain 03/11/2017 11/02/2019 Overview: Added automatically from request for surgery [id number] Right lateral epicondylitis 03/11/201710/15 Overview: Added automatically from request for surgery [id number] Rectal bleeding 02/25/2017 11/02/2019 Overview: Added automatically from request for surgery [id number] Elbow pain, right 12/17/2016 11/02/2019 Overview: Has [...] of this encounter (statuses as of 06/03/2022) [facility] History of Past illness Narrative* Problem Noted Date Resolved Date Epicondylitis, lateral, left 02/23/2018 Overview: Added automatically from request for surgery [id number] Controlled type 2 diabetes m ell[place] without complication, without long-term current use of insulin 12/13/2017 06/29/2018 Right elbow pain 03/11/2017 11/02/2019 Overview: Added automatically from request for surgery [id number] Right lateral epicondylitis 03/11/201710/15 Overview: Added automatically from request for surgery [id number] Rectal bleeding 02/25/2017 11/02/2019 Overview: Added automatically from request for surgery [id number] Elbow pain, right 12/17/2016 11/02/2019 Overview: Has [...] of this encounter (statuses as of 06/10/2022) [facility] History of Past illness Narrative* Problem Noted Date Resolved Date Epicondylitis, lateral, left 02/23/2018 Overview: Added automatically from request for surgery [id number] Controlled type 2 diabetes m ell[place] without complication, without long-term current use of insulin 12/13/2017 06/29/2018 Right elbow pain 03/11/2017 11/02/2019 Overview: Added automatically from request for surgery [id number] Right lateral epicondylitis 03/11/201710/15 Overview: Added automatically from request for surgery [id number] Rectal bleeding 02/25/2017 11/02/2019 Overview: Added automatically from request for surgery [id number] Elbow pain, right 12/17/2016 11/02/2019 Overview: Has [...] of this encounter (statuses as of 06/17/2022) [facility] History of Past illness Narrative* Problem Noted Date Resolved Date Epicondylitis, lateral, left 02/23/2018 Overview: Added automatically from request for surgery [id number] Controlled type 2 diabetes m ell[place] without complication, without long-term current use of insulin 12/13/2017 06/29/2018 Right elbow pain 03/11/2017 11/02/2019 Overview: Added automatically from request for surgery [id number] Right lateral epicondylitis 03/11/201710/15 Overview: Added automatically from request for surgery [id number] Rectal bleeding 02/25/2017 11/02/2019 Overview: Added automatically from request for surgery [id number] Elbow pain, right 12/17/2016 11/02/2019 Overview: Has [...] of this encounter (statuses as of 06/18/2022) [facility] History of Past illness Narrative* Problem Noted Date Resolved Date Epicondylitis, lateral, left 02/23/2018 Overview: Added automatically from request for surgery [id number] Controlled type 2 diabetes m ell[place] without complication, without long-term current use of insulin 12/13/2017 06/29/2018 Right elbow pain 03/11/2017 11/02/2019 Overview: Added automatically from request for surgery [id number] Right lateral epicondylitis 03/11/201710/15 Overview: Added automatically from request for surgery [id number] Rectal bleeding 02/25/2017 11/02/2019 Overview: Added automatically from request for surgery [id number] Elbow pain, right 12/17/2016 11/02/2019 Overview: Has [...] of this encounter (statuses as of 06/30/2022) [facility] History of Past illness Narrative* Problem Noted Date Resolved Date Epicondylitis, lateral, left 02/23/2018 Overview: Added automatically from request for surgery [id number] Controlled type 2 diabetes m ell[place] without complication, without long-term current use of insulin 12/13/2017 06/29/2018 Right elbow pain 03/11/2017 11/02/2019 Overview: Added automatically from request for surgery [id number] Right lateral epicondylitis 03/11/201710/15 Overview: Added automatically from request for surgery [id number] Rectal bleeding 02/25/2017 11/02/2019 Overview: Added automatically from request for surgery [id number] Elbow pain, right 12/17/2016 11/02/2019 Overview: Has [...] of this encounter (statuses as of 07/16/2022) [facility] History of Past illness Narrative* Problem Noted Date Resolved Date Epicondylitis, lateral, left 02/23/2018 Overview: Added automatically from request for surgery [id number] Controlled type 2 diabetes m ellitus without complication, without long-term current use of insulin 12/13/2017 06/29/2018 Right elbow pain 03/11/2017 11/02/2019 Overview: Added automatically from request for surgery [id number] Right lateral epicondylitis 03/11/201710/15 Overview: Added automatically from request for surgery [id number] Rectal bleeding 02/25/2017 11/02/2019 Overview: Added automatically from request for surgery [id number] Elbow pain, right 12/17/2016 11/02/2019 Overview: Has [...] of this encounter (statuses as of 07/17/2022) [facility] History of Past illness Narrative* Problem Noted Date Resolved Date Epicondylitis, lateral, left 02/23/2018 Overview: Added automatically from request for surgery [id number] Controlled type 2 diabetes m ellitus without complication, without long-term current use of insulin 12/13/2017 06/29/2018 Right elbow pain 03/11/2017 11/02/2019 Overview: Added automatically from request for surgery [id number] Right lateral epicondylitis 03/11/201710/15 Overview: Added automatically from request for surgery [id number] Rectal bleeding 02/25/2017 11/02/2019 Overview: Added automatically from request for surgery [id number] Elbow pain, right 12/17/2016 11/02/2019 Overview: Has [...] of this encounter (statuses as of 07/17/2022) [facility] History of Past illness Narrative* Problem Noted Date Resolved Date Epicondylitis, lateral, left 02/23/2018 Overview: Added automatically from request for surgery [id number] Controlled type 2 diabetes m ell[place] without complication, without long-term current use of insulin 12/13/2017 06/29/2018 Right elbow pain 03/11/2017 11/02/2019 Overview: Added automatically from request for surgery [id number] Right lateral epicondylitis 03/11/201710/15 Overview: Added automatically from request for surgery [id number] Rectal bleeding 02/25/2017 11/02/2019 Overview: Added automatically from request for surgery [id number] Elbow pain, right 12/17/2016 11/02/2019 Overview: Has [...] of this encounter (statuses as of 07/22/2022) [facility] History of Past illness Narrative* Problem Noted Date Resolved Date Epicondylitis, lateral, left 02/23/2018 Overview: Added automatically from request for surgery [id number] Controlled type 2 diabetes m ellitus without complication, without long-term current use of insulin 12/13/2017 06/29/2018 Right elbow pain 03/11/2017 11/02/2019 Overview: Added automatically from request for surgery [id number] Right lateral epicondylitis 03/11/201710/15 Overview: Added automatically from request for surgery [id number] Rectal bleeding 02/25/2017 11/02/2019 Overview: Added automatically from request for surgery [id number] Elbow pain, right 12/17/2016 11/02/2019 Overview: Has [...] of this encounter (statuses as of 08/13/2022) [facility] History of Past illness Narrative* Problem Noted Date Resolved Date Epicondylitis, lateral, left 02/23/2018 Overview: Added automatically from request for surgery [id number] Controlled type 2 diabetes m ellitus without complication, without long-term current use of insulin 12/13/2017 06/29/2018 Right elbow pain 03/11/2017 11/02/2019 Overview: Added automatically from request for surgery [id number] Right lateral epicondylitis 03/11/201710/15 Overview: Added automatically from request for surgery [id number] Rectal bleeding 02/25/2017 11/02/2019 Overview: Added automatically from request for surgery [id number] Elbow pain, right 12/17/2016 11/02/2019 Overview: Has [...] of this encounter (statuses as of 08/24/2022) [facility] History of Past illness Narrative* Problem Noted Date Resolved Date Epicondylitis, lateral, left 02/23/2018 Overview: Added automatically from request for surgery [id number] Controlled type 2 diabetes m ellitus without complication, without long-term current use of insulin 12/13/2017 06/29/2018 Right elbow pain 03/11/2017 11/02/2019 Overview: Added automatically from request for surgery [id number] Right lateral epicondylitis 03/11/201710/15 Overview: Added automatically from request for surgery [id number] Rectal bleeding 02/25/2017 11/02/2019 Overview: Added automatically from request for surgery [id number] Elbow pain, right 12/17/2016 11/02/2019 Overview: Has [...] of this encounter (statuses as of 08/27/2022) [facility]10-10-2018 History of Past illness Narrative* Problem Noted Date Resolved Date Epicondylitis, lateral, left 02/23/2018 Overview: Added automatically from request for surgery [id number] Controlled type 2 diabetes m ellitus without complication, without long-term current use of insulin 12/13/2017 06/29/2018 Right elbow pain 03/11/2017 11/02/2019 Overview: Added automatically from request for surgery [id number] Right lateral epicondylitis 03/11/201710/15 Overview: Added automatically from request for surgery [id number] Rectal bleeding 02/25/2017 11/02/2019 Overview: Added automatically from request for surgery [id number] Elbow pain, right 12/17/2016 11/02/2019 Overview: Has [...] of this encounter (statuses as of 08/29/2022) [facility] History of Past illness Narrative* Problem Noted Date Resolved Date Epicondylitis, lateral, left 02/23/2018 Overview: Added automatically from request for surgery [id number] Controlled type 2 diabetes m rubinaitus without complication, without long-term current use of insulin 12/13/2017 06/29/2018 Right elbow pain 03/11/2017 11/02/2019 Overview: Added automatically from request for surgery [id number] Right lateral epicondylitis 03/11/201710/15 Overview: Added automatically from request for surgery [id number] Rectal bleeding 02/25/2017 11/02/2019 Overview: Added automatically from request for surgery [id number] Elbow pain, right 12/17/2016 11/02/2019 Overview: Has [...] of this encounter (statuses as of 09/04/2022) [facility] History of Past illness Narrative* Problem Noted Date Resolved Date Epicondylitis, lateral, left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 pain- Primary Abdominal pain, epigastric Nausea Nausea alone Diarrhea, unspecified type Decreased appetite Anorexia documented in this encounter [facility] note* Diagnosis Nausea and vomiting, unspecified vomiting type- Primary documented in this encounter [facility] note* Diagnosis Epigastric pain- Primary Abdominal pain, epigastric Rectal bleeding Hemorrhage of rectum and anus Diarrhea, unspecified type Nausea and vomiting, unspecified vomiting type documented in this encounter [facility] note* Diagnosis Acute pain of right knee- Primary documented in this encounter [facility] note* Diagnosis Diarrhea, unspecified type- Primary Nausea and vomiting, unspecified vomiting type Epigastric pain Abdominal pain, epigastric documented in this encounter [facility] note* Diagnosis Onset Date Resolution Status Asthma chronic EAMON (obstructive sleep apnea) chronic Tobacco use disorder [facility] Work Phone: Evaluation note* Diagnosis Shortness of breath- Primary Chest pain, unspecified type Left leg swelling Swelling of limb Left leg pain Pain in limb Nausea Nausea alone Controlled type 2 diabetes mellitus without complication, without long-term current use of insulin ([facility]) Acute pain of left shoulder Essential hypertension Unspecified essential hypertension Hypothyroidism, unspecified type documented in this encounter [facility] note* Diagnosis Epigastric pain Abdominal pain, epigastric documented in this encounter [facility] note* Diagnosis Tinnitus of both ears Unspecified tinnitus ETD (Eustachian tube dysfunction), bilateral documented in this encounter [facility] note* Diagnosis Cervical radiculopathy- Primary Brachial neuritis or radiculitis nos Chronic left shoulder pain Pain in joint, shoulder region documented in this encounter [facility] note* Diagnosis Controlled type 2 diabetes mellitus without complication, without long-term current use of insulin ([facility])- Primary Class 3 drug-induced obesity with serious comorbidity and body mass index (BMI) of 50.0 to 59.9 in adult ([facility]) Weight loss counseling, encounter for Dietary surveillance and counseling Epigastric pain Abdominal pain, epigastric documented in this encounter [facility] note* Diagnosis Procedure not carried out- Primary Procedure not carried out for other reasons documented in this encounter [facility] note* Diagnosis Epigastric pain Abdominal pain, epigastric documented in this encounter [facility] note* Diagnosis Dietary counseling- Primary Dietary surveillance and counseling Controlled type 2 diabetes mellitus without complication, without long-term current use of insulin ([facility]) Class 3 drug-induced obesity with serious comorbidity and body mass index (BMI) of 50.0 to 59.9 in adult ([facility]) documented in this encounter [facility] note* Diagnosis Morbid obesity with BMI of 50.0-59.9, adult (HCC)- Primary Morbid obesity Controlled type 2 diabetes mellitus without complication, without long-term current use of insulin ([facility]) Other hyperlipidemia Hypothyroidism, unspecified type documented in this encounter [facility] note* Diagnosis Encounter for screening mammogram for breast cancer documented in this encounter [facility] note* Diagnosis Onset Date Resolution Status Epigastric pain acute Asthma chronic Morbid obesity with BMI of 50.0-59.9, adult chronic EAMON (obstructive sleep apnea) chronic Tobacco use disorder [facility] Work Phone: evaluation note* Diagnosis Onset Date Resolution Status Asthma chronic Morbid obesity with BMI of 50.0-59.9, adult chronic EAMON (obstructive sleep apnea) chronic Tobacco use disorder [facility] Work Phone: Evaluation note* Diagnosis Controlled type 2 diabetes mellitus without complication, without long-term current use of insulin ([facility])- Primary Essential hypertension Unspecified essential hypertension Other hyperlipidemia Anxiety Anxiety state, unspecified Adjustment disorder with depressed mood Hypothyroidism, unspecified type Weight gain Abnormal weight gain documented in this encounter [facility] note* Diagnosis RUQ pain Abdominal pain, right upper quadrant Nausea Nausea alone Epigastric pain Abdominal pain, epigastric Diarrhea, unspecified type documented in this encounter [facility] note* Diagnosis COVID- Primary documented in this encounter [facility] note* Diagnosis Bilateral lower extremity edema Edema documented in this encounter [facility] noteNo assessment information availableWM[facility] Work [facility]: [facility]* Diagnosis URI, acute- Primary Acute upper respiratory infections of unspecified site Asthma with COPD with exacerbation ([facility]) ([facility]) Chronic obstructive asthma with exacerbation documented in this encounter [facility] note* Diagnosis Acute cough- Primary Rash Rash and other nonspecific skin eruption documented in this encounter [facility] note* Diagnosis Rash- Primary Rash and other nonspecific skin eruption documented in this encounter [facility] note* Diagnosis Controlled type 2 diabetes mellitus without complication, without long-term current use of insulin (HCC)- Primary Other hyperlipidemia Essential hypertension Unspecified essential hypertension Hypothyroidism, unspecified type [facility]* Diagnosis Type 2 diabetes mellitus without complications (HCC) Type II or unspecified type diabetes mellitus without mention of complication, not stated as uncontrolled documented in this encounter [facility] note* Diagnosis Controlled type 2 diabetes mellitus without complication, without long-term current use of insulin (HCC) Morbid obesity with BMI of 50.0-59.9, adult (HCC) Morbid obesity Essential hypertension Unspecified essential hypertension Other hyperlipidemia Hypothyroidism, unspecified type [facility]* Diagnosis Essential hypertension- Primary Unspecified essential hypertension documented in this encounter [facility] note* Diagnosis Adjustment disorder with depressed mood- Primary STD exposure [facility]* Diagnosis Adjustment disorder with depressed mood- Primary STD exposure Controlled type 2 diabetes mellitus without complication, without long-term current use of insulin ([facility]) documented in this encounter [facility] note* Diagnosis Epigastric pain- Primary Abdominal pain, epigastric Vomiting and diarrhea Vomiting alone documented in this encounter [facility] note* Diagnosis Epigastric pain- Primary Abdominal pain, epigastric Vomiting and diarrhea Vomiting alone documented in this encounter [facility] note* Diagnosis STD exposure- Primary [facility]* Diagnosis Epigastric pain- Primary Abdominal pain, epigastric Morbid obesity with BMI of 50.0-59.9, adult ([facility]) Morbid obesity Controlled type 2 diabetes mellitus without complication, without long-term current use of insulin (HCC) documented in this encounter [facility] note* Diagnosis Encounter for screening mammogram for breast cancer documented in this encounter [facility] note* Diagnosis Dental infection- Primary Acute apical periodontitis of pulpal origin [facility]* Diagnosis Gastroesophageal reflux disease without esophagitis- [...] lower extremity edema Edema BMI 50.0-59.9, adult ([facility]) Body Mass Index 50.0-59.9, adult Gastroesophageal reflux [...] complication, without long-term current use of insulin ([facility]) Chest pain, unspecified type Shortness of breath [facility]* Diagnosis Gastroesophageal reflux disease without esophagitis- Primary Esophageal reflux Elbow pain, right Pain in joint, upper arm Chest pain, unspecified type Tobacco use disorder Adjustment disorder with depressed mood BMI 50.0-59.9, adult ([facility]) Body Mass Index 50.0-59.9, adult Plantar fasciitis Plantar fascial fibromatosis Pre-operative examination- Primary Preoperative examination, unspecified Trigger thumb, right thumb Adjustment disorder with depressed mood Mild intermittent asthma with acute exacerbation Unspecified asthma, with exacerbation Bilateral lower extremity edema Edema BMI 50.0-59.9, adult ([facility]) Body Mass Index 50.0-59.9, adult Gastroesophageal reflux [...] Abnormal coagulation profile [facility]* Diagnosis Gastroesophageal reflux disease without esophagitis- Primary Esophageal reflux Elbow pain, right Pain in joint, upper arm Chest pain, unspecified type Tobacco use disorder Adjustment disorder with depressed mood BMI 50.0-59.9, adult ([facility]) Body Mass Index 50.0-59.9, adult Plantar fasciitis Plantar fascial fibromatosis Pre-operative examination- Primary Preoperative examination, unspecified Trigger thumb, right thumb Adjustment disorder with depressed mood Mild intermittent asthma with acute exacerbation Unspecified asthma, with exacerbation Bilateral lower extremity edema Edema BMI 50.0-59.9, adult ([facility]) Body Mass Index 50.0-59.9, adult Gastroesophageal reflux [...] Unspecified essential hypertension [facility]* Diagnosis Gastroesophageal reflux disease without esophagitis- Primary Esophageal reflux Elbow pain, right Pain in joint, upper arm Chest pain, unspecified type Tobacco use disorder Adjustment disorder with depressed mood BMI 50.0-59.9, adult ([facility]) Body Mass Index 50.0-59.9, adult Plantar fasciitis Plantar fascial fibromatosis Pre-operative examination- Primary Preoperative examination, unspecified Trigger thumb, right thumb Adjustment disorder with depressed mood Mild intermittent asthma with acute exacerbation Unspecified asthma, with exacerbation Bilateral lower extremity edema Edema BMI 50.0-59.9, adult ([facility]) Body Mass Index 50.0-59.9, adult Gastroesophageal reflux disease without esophagitis Esophageal reflux Other hyperlipidemia EAMON (obstructive sleep apnea) Obstructive sleep apnea (adult) (pediatric) Spinal stenosis, lumbar region, without neurogenic claudication Tobacco use disorder Hypothyroidism, unspecified type Prediabetes Other abnormal glucose History of 2019 novel coronavirus disease (COVID-19) Right knee pain, unspecified chronicity- Primary documented [facility]* Diagnosis Gastroesophageal reflux disease without esophagitis- Primary Esophageal reflux Elbow pain, right Pain in joint, upper arm Chest pain, unspecified type Tobacco use disorder Adjustment disorder with depressed mood BMI 50.0-59.9, adult ([facility]) Body Mass Index 50.0-59.9, adult Plantar fasciitis Plantar fascial fibromatosis Pre-operative examination- Primary Preoperative examination, unspecified Trigger thumb, right thumb Adjustment disorder with depressed mood Mild intermittent asthma with acute exacerbation Unspecified asthma, with exacerbation Bilateral lower extremity edema Edema BMI 50.0-59.9, adult ([facility]) Body Mass Index 50.0-59.9, adult Gastroesophageal reflux [...] Wheezing Other fatigue documented in this encounter [facility] note* Diagnosis Gastroesophageal reflux disease without esophagitis- Primary Esophageal reflux Elbow pain, right Pain in joint, upper arm Chest pain, unspecified type Tobacco use disorder Adjustment disorder with depressed mood BMI 50.0-59.9, adult ([facility]) Body Mass Index 50.0-59.9, adult Plantar fasciitis Plantar fascial fibromatosis Pre-operative examination- Primary Preoperative examination, unspecified Trigger thumb, right thumb Adjustment disorder with depressed mood Mild intermittent asthma with acute exacerbation Unspecified asthma, with exacerbation Bilateral lower extremity edema Edema BMI 50.0-59.9, adult ([facility]) Body Mass Index 50.0-59.9, adult Gastroesophageal reflux disease without esophagitis Esophageal reflux Other hyperlipidemia EAMON (obstructive sleep apnea) Obstructive sleep apnea (adult) (pediatric) Spinal stenosis, lumbar region, without neurogenic claudication Tobacco use disorder Hypothyroidism, unspecified type Prediabetes Other abnormal glucose History of 2019 novel coronavirus disease (COVID-19) Chest pain, unspecified type Shortness of breath documented in this encounter [facility] note* Diagnosis Gastroesophageal reflux disease without esophagitis- Primary Esophageal reflux Elbow pain, right Pain in joint, upper arm Chest pain, unspecified type Tobacco use disorder Adjustment disorder with depressed mood BMI 50.0-59.9, adult ([facility]) Body Mass Index 50.0-59.9, adult Plantar fasciitis Plantar fascial fibromatosis Pre-operative examination- Primary Preoperative examination, unspecified Trigger thumb, right thumb Adjustment disorder with depressed mood Mild intermittent asthma with acute exacerbation Unspecified asthma, with exacerbation Bilateral lower extremity edema Edema BMI 50.0-59.9, adult ([facility]) Body Mass Index 50.0-59.9, adult Gastroesophageal reflux disease without esophagitis Esophageal reflux Other hyperlipidemia EAMON (obstructive sleep apnea) Obstructive sleep apnea (adult) (pediatric) Spinal stenosis, lumbar region, without neurogenic claudication Tobacco use disorder Hypothyroidism, unspecified type Prediabetes Other abnormal glucose History of 2019 novel coronavirus disease (COVID-19) Epigastric pain Abdominal pain, epigastric Vomiting and diarrhea Vomiting alone [facility]* Diagnosis Gastroesophageal reflux disease without esophagitis- Primary Esophageal reflux Elbow pain, right Pain in joint, upper arm Chest pain, unspecified type Tobacco use disorder Adjustment disorder with depressed mood BMI 50.0-59.9, adult ([facility]) Body Mass Index 50.0-59.9, adult Plantar fasciitis Plantar fascial fibromatosis Pre-operative examination- Primary Preoperative examination, unspecified Trigger thumb, right thumb Adjustment disorder with depressed mood Mild intermittent asthma with acute exacerbation Unspecified asthma, with exacerbation Bilateral lower extremity edema Edema BMI 50.0-59.9, adult ([facility]) Body Mass Index 50.0-59.9, adult Gastroesophageal reflux [...] Wheezing Other fatigue [facility] Diagnosis Gastroesophageal reflux disease without esophagitis- Primary Esophageal reflux Elbow pain, right Pain in joint, upper arm Chest pain, unspecified type Tobacco use disorder Adjustment disorder with depressed mood BMI 50.0-59.9, adult ([facility]) Body Mass Index 50.0-59.9, adult Plantar fasciitis Plantar fascial fibromatosis Pre-operative examination- Primary Preoperative examination, unspecified Trigger thumb, right thumb Adjustment disorder with depressed mood Mild intermittent asthma with acute exacerbation Unspecified asthma, with exacerbation Bilateral lower extremity edema Edema BMI 50.0-59.9, adult ([facility]) Body Mass Index 50.0-59.9, adult Gastroesophageal reflux disease without esophagitis Esophageal reflux Other hyperlipidemia EAMON (obstructive sleep apnea) Obstructive sleep apnea (adult) (pediatric) Spinal stenosis, lumbar region, without neurogenic claudication Tobacco use disorder Hypothyroidism, unspecified type Prediabetes Other abnormal glucose History of 2019 novel coronavirus disease (COVID-19) Acute cough [facility]* Diagnosis Gastroesophageal reflux disease without esophagitis- Primary Esophageal reflux Elbow pain, right Pain in joint, upper arm Chest pain, unspecified type Tobacco use disorder Adjustment disorder with depressed mood BMI 50.0-59.9, adult ([facility]) Body Mass Index 50.0-59.9, adult Plantar fasciitis Plantar fascial fibromatosis Pre-operative examination- Primary Preoperative examination, unspecified Trigger thumb, right thumb Adjustment disorder with depressed mood Mild intermittent asthma with acute exacerbation Unspecified asthma, with exacerbation Bilateral lower extremity edema Edema BMI 50.0-59.9, adult ([facility]) Body Mass Index 50.0-59.9, adult Gastroesophageal reflux disease without esophagitis Esophageal reflux Other hyperlipidemia EAMON (obstructive sleep apnea) Obstructive sleep apnea (adult) (pediatric) Spinal stenosis, lumbar region, without neurogenic claudication Tobacco use disorder Hypothyroidism, unspecified type Prediabetes Other abnormal glucose History of 2019 novel coronavirus disease (COVID-19) Acute cough Shortness of breath COVID-19 virus infection [facility]* Diagnosis Gastroesophageal reflux disease without esophagitis- Primary Esophageal reflux Elbow pain, right Pain in joint, upper arm Chest pain, unspecified type Tobacco use disorder Adjustment disorder with depressed mood BMI 50.0-59.9, adult ([facility]) Body Mass Index 50.0-59.9, adult Plantar fasciitis Plantar fascial fibromatosis Pre-operative examination- Primary Preoperative examination, unspecified Trigger thumb, right thumb Adjustment disorder with depressed mood Mild intermittent asthma with acute exacerbation Unspecified asthma, with exacerbation Bilateral lower extremity edema Edema BMI 50.0-59.9, adult ([facility]) Body Mass Index 50.0-59.9, adult Gastroesophageal reflux [...] malaise and fatigue [facility] Diagnosis Gastroesophageal reflux disease without esophagitis- Primary Esophageal reflux Elbow pain, right Pain in joint, upper arm Chest pain, unspecified type Tobacco use disorder Adjustment disorder with depressed mood BMI 50.0-59.9, adult ([facility]) Body Mass Index 50.0-59.9, adult Plantar fasciitis Plantar fascial fibromatosis Pre-operative examination- Primary Preoperative examination, unspecified Trigger thumb, right thumb Adjustment disorder with depressed mood Mild intermittent asthma with acute exacerbation Unspecified asthma, with exacerbation Bilateral lower extremity edema Edema BMI 50.0-59.9, adult ([facility] [place] Body Mass Index 50.0-59.9, adult Gastroesophageal reflux [...] specified, unspecified location [facility]* Diagnosis Gastroesophageal reflux disease without esophagitis- Primary Esophageal reflux Elbow pain, right Pain in joint, upper arm Chest pain, unspecified type Tobacco use disorder Adjustment disorder with depressed mood BMI 50.0-59.9, adult ([facility] Body Mass Index 50.0-59.9, adult Plantar fasciitis Plantar fascial fibromatosis Pre-operative examination- Primary Preoperative examination, unspecified Trigger thumb, right thumb Adjustment disorder with depressed mood Mild intermittent asthma with acute exacerbation Unspecified asthma, with exacerbation Bilateral lower extremity edema Edema BMI 50.0-59.9, adult ([facility]) Body Mass Index 50.0-59.9, adult Gastroesophageal reflux disease without esophagitis Esophageal reflux Other hyperlipidemia EAMON (obstructive sleep apnea) Obstructive sleep apnea (adult) (pediatric) Spinal stenosis, lumbar region, without neurogenic claudication Tobacco use disorder Hypothyroidism, unspecified type Prediabetes Other abnormal glucose History of 2019 novel coronavirus disease (COVID-19) Acute pain of right knee documented in this encounter [facility] note* Diagnosis Gastroesophageal reflux disease without esophagitis- Primary Esophageal reflux Elbow pain, right Pain in joint, upper arm Chest pain, unspecified type Tobacco use disorder Adjustment disorder with depressed mood BMI 50.0-59.9, adult ([facility]) Body Mass Index 50.0-59.9, adult Plantar fasciitis Plantar fascial fibromatosis SOB (shortness of breath) Shortness of breath Pre-operative examination- Primary Preoperative examination, unspecified Trigger thumb, right thumb Adjustment disorder with depressed mood Mild intermittent asthma with acute exacerbation Unspecified asthma, with exacerbation Bilateral lower extremity edema Edema BMI 50.0-59.9, adult ([facility]) Body Mass Index 50.0-59.9, adult Gastroesophageal reflux disease without esophagitis Esophageal reflux Other hyperlipidemia EAMON (obstructive sleep apnea) Obstructive sleep apnea (adult) (pediatric) Spinal stenosis, lumbar region, without neurogenic claudication Tobacco use disorder Hypothyroidism, unspecified type Prediabetes Other abnormal glucose History of 2019 novel coronavirus disease (COVID-19) documented in this encounter [facility] note* Diagnosis Gastroesophageal reflux disease without esophagitis- Primary Esophageal reflux Elbow pain, right Pain in joint, upper arm Chest pain, unspecified type Tobacco use disorder Adjustment disorder with depressed mood BMI 50.0-59.9, adult ([facility]) Body Mass Index 50.0-59.9, adult Plantar fasciitis Plantar fascial fibromatosis Pre-operative examination- Primary Preoperative examination, unspecified Trigger thumb, right thumb Adjustment disorder with depressed mood Mild intermittent asthma with acute exacerbation Unspecified asthma, with exacerbation Bilateral lower extremity edema Edema BMI 50.0-59.9, adult ([facility]) Body Mass Index 50.0-59.9, adult Gastroesophageal reflux disease without esophagitis Esophageal reflux Other hyperlipidemia EAMON (obstructive sleep apnea) Obstructive sleep apnea (adult) (pediatric) Spinal stenosis, lumbar region, without neurogenic claudication Tobacco use disorder Hypothyroidism, unspecified type Prediabetes Other abnormal glucose History of 2019 novel coronavirus disease (COVID-19) Other hyperlipidemia documented in this encounter [facility] note* Diagnosis Gastroesophageal reflux disease without esophagitis- Primary Esophageal reflux Elbow pain, right Pain in joint, upper arm Chest pain, unspecified type Tobacco use disorder Adjustment disorder with depressed mood BMI 50.0-59.9, adult ([facility]) Body Mass Index 50.0-59.9, adult Plantar fasciitis Plantar fascial fibromatosis Pre-operative examination- Primary Preoperative examination, unspecified Trigger thumb, right thumb Adjustment disorder with depressed mood Mild intermittent asthma with acute exacerbation Unspecified asthma, with exacerbation Bilateral lower extremity edema Edema BMI 50.0-59.9, adult ([facility]) Body Mass Index 50.0-59.9, adult Gastroesophageal reflux [...] asthma, with exacerbation documented in this [facility]* Diagnosis Gastroesophageal reflux disease without esophagitis- Primary Esophageal reflux Elbow pain, right Pain in joint, upper arm Chest pain, unspecified type Tobacco use disorder Adjustment disorder with depressed mood BMI 50.0-59.9, adult ([facility]) Body Mass Index 50.0-59.9, adult Plantar fasciitis Plantar fascial fibromatosis Bacterial URI Exacerbation of asthma, unspecified asthma severity, unspecified whether persistent Pre-operative examination- Primary Preoperative examination, unspecified Trigger thumb, right thumb Adjustment disorder with depressed mood Mild intermittent asthma with acute exacerbation Unspecified asthma, with exacerbation Bilateral lower extremity edema Edema BMI 50.0-59.9, adult ([facility]) Body Mass Index 50.0-59.9, adult Gastroesophageal reflux disease without esophagitis Esophageal reflux Other hyperlipidemia EAMON (obstructive sleep apnea) Obstructive sleep apnea (adult) (pediatric) Spinal stenosis, lumbar region, without neurogenic claudication Tobacco use disorder Hypothyroidism, unspecified type Prediabetes Other abnormal glucose History of 2019 novel coronavirus disease (COVID-19) documented in this encounter [facility] note* Diagnosis Gastroesophageal reflux disease without esophagitis- Primary Esophageal reflux Elbow pain, right Pain in joint, upper arm Chest pain, unspecified type Tobacco use disorder Adjustment disorder with depressed mood BMI 50.0-59.9, adult ([facility]) Body Mass Index 50.0-59.9, adult Plantar fasciitis Plantar fascial fibromatosis SOB (shortness of breath) Shortness of breath Pre-operative examination- Primary Preoperative examination, unspecified Trigger thumb, right thumb Adjustment disorder with depressed mood Mild intermittent asthma with acute exacerbation Unspecified asthma, with exacerbation Bilateral lower extremity edema Edema BMI 50.0-59.9, adult ([facility]) Body Mass Index 50.0-59.9, adult Gastroesophageal reflux disease without esophagitis Esophageal reflux Other hyperlipidemia EAMON (obstructive sleep apnea) Obstructive sleep apnea (adult) (pediatric) Spinal stenosis, lumbar region, without neurogenic claudication Tobacco use disorder Hypothyroidism, unspecified type Prediabetes Other abnormal glucose History of 2019 novel coronavirus disease (COVID-19) documented in this encounter [facility] note* Diagnosis Gastroesophageal reflux disease without esophagitis- Primary Esophageal reflux Elbow pain, right Pain in joint, upper arm Chest pain, unspecified type Tobacco use disorder Adjustment disorder with depressed mood BMI 50.0-59.9, adult ([facility]) Body Mass Index 50.0-59.9, adult Plantar fasciitis Plantar fascial fibromatosis Pre-operative examination- Primary Preoperative examination, unspecified Trigger thumb, right thumb Adjustment disorder with depressed mood Mild intermittent asthma with acute exacerbation Unspecified asthma, with exacerbation Bilateral lower extremity edema Edema BMI 50.0-59.9, adult ([facility]) Body Mass Index 50.0-59.9, adult Gastroesophageal reflux disease without esophagitis Esophageal reflux Other hyperlipidemia EAMON (obstructive sleep apnea) Obstructive sleep apnea (adult) (pediatric) Spinal stenosis, lumbar region, without neurogenic claudication Tobacco use disorder Hypothyroidism, unspecified type Prediabetes Other abnormal glucose History of 2019 novel coronavirus disease (COVID-19) Uncontrolled asthma- Primary documented in this encounter [facility]* Diagnosis Gastroesophageal reflux disease without esophagitis- Primary Esophageal reflux Elbow pain, right Pain in joint, upper arm Chest pain, unspecified type Tobacco use disorder Adjustment disorder with depressed mood BMI 50.0-59.9, adult ([facility]) Body Mass Index 50.0-59.9, adult Plantar fasciitis Plantar fascial fibromatosis Pre-operative examination- Primary Preoperative examination, unspecified Trigger thumb, right thumb Adjustment disorder with depressed mood Mild intermittent asthma with acute exacerbation Unspecified asthma, with exacerbation Bilateral lower extremity edema Edema BMI 50.0-59.9, adult ([facility]) Body Mass Index 50.0-59.9, adult Gastroesophageal reflux [...] arterial blood gases documented in this encounter [facility]* Diagnosis Gastroesophageal reflux disease without esophagitis- Primary Esophageal reflux Elbow pain, right Pain in joint, upper arm Chest pain, unspecified type Tobacco use disorder Adjustment disorder with depressed mood BMI 50.0-59.9, adult ([facility]) Body Mass Index 50.0-59.9, adult Plantar fasciitis Plantar fascial fibromatosis Pre-operative examination- Primary Preoperative examination, unspecified Trigger thumb, right thumb Adjustment disorder with depressed mood Mild intermittent asthma with acute exacerbation Unspecified asthma, with exacerbation Bilateral lower extremity edema Edema BMI 50.0-59.9, adult ([facility]) Body Mass Index 50.0-59.9, adult Gastroesophageal reflux [...] right upper extremity documented in this encounter [facility]* Diagnosis Gastroesophageal reflux disease without esophagitis- Primary Esophageal reflux Elbow pain, right Pain in joint, upper arm Chest pain, unspecified type Tobacco use disorder Adjustment disorder with depressed mood BMI 50.0-59.9, adult ([facility]) Body Mass Index 50.0-59.9, adult Plantar fasciitis Plantar fascial fibromatosis Pre-operative examination- Primary Preoperative examination, unspecified Trigger thumb, right thumb Adjustment disorder with depressed mood Mild intermittent asthma with acute exacerbation Unspecified asthma, with exacerbation Bilateral lower extremity edema Edema BMI 50.0-59.9, adult ([facility]) Body Mass Index 50.0-59.9, adult Gastroesophageal reflux disease without esophagitis Esophageal reflux Other hyperlipidemia EAMON (obstructive sleep apnea) Obstructive sleep apnea (adult) (pediatric) Spinal stenosis, lumbar region, without neurogenic claudication Tobacco use disorder Hypothyroidism, unspecified type Prediabetes Other abnormal glucose History of 2019 novel coronavirus disease (COVID-19) 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 ([facility])- Primary Aspergillosis EAMON (obstructive sleep apnea) Obstructive sleep apnea (adult) (pediatric) Uncontrolled asthma documented in this encounter [facility] note* Diagnosis Gastroesophageal reflux disease without esophagitis- Primary Esophageal reflux Elbow pain, right Pain in joint, upper arm Chest pain, unspecified type Tobacco use disorder Adjustment disorder with depressed mood BMI 50.0-59.9, adult ([facility]) Body Mass Index 50.0-59.9, adult Plantar fasciitis Plantar fascial fibromatosis Pre-operative examination- Primary Preoperative examination, unspecified Trigger thumb, right thumb Adjustment disorder with depressed mood Mild intermittent asthma with acute exacerbation Unspecified asthma, with exacerbation Bilateral lower extremity edema Edema BMI 50.0-59.9, adult ([facility]) Body Mass Index 50.0-59.9, adult Gastroesophageal reflux disease without esophagitis Esophageal reflux Other hyperlipidemia EAMON (obstructive sleep apnea) Obstructive sleep apnea (adult) (pediatric) Spinal stenosis, lumbar region, without neurogenic claudication Tobacco use disorder Hypothyroidism, unspecified type Prediabetes Other abnormal glucose History of 2019 novel coronavirus disease (COVID-19) Bilateral lower extremity edema Edema documented in this encounter [facility]* Diagnosis Gastroesophageal reflux disease without esophagitis- Primary Esophageal reflux Elbow pain, right Pain in joint, upper arm Chest pain, unspecified type Tobacco use disorder Adjustment disorder with depressed mood BMI 50.0-59.9, adult ([facility]) Body Mass Index 50.0-59.9, adult Plantar fasciitis Plantar fascial fibromatosis Pre-operative examination- Primary Preoperative examination, unspecified Trigger thumb, right thumb Adjustment disorder with depressed mood Mild intermittent asthma with acute exacerbation Unspecified asthma, with exacerbation Bilateral lower extremity edema Edema BMI 50.0-59.9, adult ([facility]) Body Mass Index 50.0-59.9, adult Gastroesophageal reflux disease without esophagitis Esophageal reflux Other hyperlipidemia EAMON (obstructive sleep apnea) Obstructive sleep apnea (adult) (pediatric) Spinal stenosis, lumbar region, without neurogenic claudication Tobacco use disorder Hypothyroidism, unspecified type Prediabetes Other abnormal glucose History of 2019 novel coronavirus disease (COVID-19) Skin infection- Primary Unspecified local infection of skin and subcutaneous tissue documented in this encounter [facility] note* Diagnosis Gastroesophageal reflux disease without esophagitis- Primary Esophageal reflux Elbow pain, right Pain in joint, upper arm Chest pain, unspecified type Tobacco use disorder Adjustment disorder with depressed mood BMI 50.0-59.9, adult ([facility]) Body Mass Index 50.0-59.9, adult Plantar fasciitis Plantar fascial fibromatosis Pre-operative examination- Primary Preoperative examination, unspecified Trigger thumb, right thumb Adjustment disorder with depressed mood Mild intermittent asthma with acute exacerbation Unspecified asthma, with exacerbation Bilateral lower extremity edema Edema BMI 50.0-59.9, adult ([facility]) Body Mass Index 50.0-59.9, adult Gastroesophageal reflux disease without esophagitis Esophageal reflux Other hyperlipidemia EAMON (obstructive sleep apnea) Obstructive sleep apnea (adult) (pediatric) Spinal stenosis, lumbar region, without neurogenic claudication Tobacco use disorder Hypothyroidism, unspecified type Prediabetes Other abnormal glucose History of 2019 novel coronavirus disease (COVID-19) Boil- Primary Carbuncle and furuncle of unspecified site documented in this encounter [facility] note* Diagnosis Gastroesophageal reflux disease without esophagitis- Primary Esophageal reflux Elbow pain, right Pain in joint, upper arm Chest pain, unspecified type Tobacco use disorder Adjustment disorder with depressed mood BMI 50.0-59.9, adult ([facility]) Body Mass Index 50.0-59.9, adult Plantar fasciitis Plantar fascial fibromatosis Pre-operative examination- Primary Preoperative examination, unspecified Trigger thumb, right thumb Adjustment disorder with depressed mood Mild intermittent asthma with acute exacerbation Unspecified asthma, with exacerbation Bilateral lower extremity edema Edema BMI 50.0-59.9, adult ([facility]) Body Mass Index 50.0-59.9, adult Gastroesophageal reflux [...] nonsurgical wound dressing documented in this encounter [facility] note* Diagnosis Gastroesophageal reflux disease without esophagitis- Primary Esophageal reflux Elbow pain, right Pain in joint, upper arm Chest pain, unspecified type Tobacco use disorder Adjustment disorder with depressed mood BMI 50.0-59.9, adult ([facility]) Body Mass Index 50.0-59.9, adult Plantar fasciitis Plantar fascial fibromatosis Pre-operative examination- Primary Preoperative examination, unspecified Trigger thumb, right thumb Adjustment disorder with depressed mood Mild intermittent asthma with acute exacerbation Unspecified asthma, with exacerbation Bilateral lower extremity edema Edema BMI 50.0-59.9, adult ([facility]) Body Mass Index 50.0-59.9, adult Gastroesophageal reflux disease without esophagitis Esophageal reflux Other hyperlipidemia EAMON (obstructive sleep apnea) Obstructive sleep apnea (adult) (pediatric) Spinal stenosis, lumbar region, without neurogenic claudication Tobacco use disorder Hypothyroidism, unspecified type Prediabetes Other abnormal glucose History of 2019 novel coronavirus disease (COVID-19) 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 ([facility])- Primary Aspergillosis Mild intermittent asthma with acute exacerbation Unspecified asthma, with exacerbation Controlled type 2 diabetes mellitus without complication, without long-term current use of insulin ([facility]) Gastroesophageal reflux disease without esophagitis Esophageal reflux Morbid obesity with BMI of 50.0-59.9, adult ([facility]) Morbid obesity Encounter for immunization Need for other specified prophylactic vaccination against single bacterial disease Essential hypertension Unspecified essential hypertension Other hyperlipidemia documented in this encounter [facility] note* Diagnosis Gastroesophageal reflux disease without esophagitis- Primary Esophageal reflux Elbow pain, right Pain in joint, upper arm Chest pain, unspecified type Tobacco use disorder Adjustment disorder with depressed mood BMI 50.0-59.9, adult ([facility]) Body Mass Index 50.0-59.9, adult Plantar fasciitis Plantar fascial fibromatosis Pre-operative examination- Primary Preoperative examination, unspecified Trigger thumb, right thumb Adjustment disorder with depressed mood Mild intermittent asthma with acute exacerbation Unspecified asthma, with exacerbation Bilateral lower extremity edema Edema BMI 50.0-59.9, adult ([facility]) Body Mass Index 50.0-59.9, adult Gastroesophageal reflux disease without esophagitis Esophageal reflux Other hyperlipidemia EAMON (obstructive sleep apnea) Obstructive sleep apnea (adult) (pediatric) Spinal stenosis, lumbar region, without neurogenic claudication Tobacco use disorder Hypothyroidism, unspecified type Prediabetes Other abnormal glucose History of 2019 novel coronavirus disease (COVID-19) Cough, unspecified type documented in this encounter [facility] note* Diagnosis Gastroesophageal reflux disease without esophagitis- Primary Esophageal reflux Elbow pain, right Pain in joint, upper arm Chest pain, unspecified type Tobacco use disorder Adjustment disorder with depressed mood BMI 50.0-59.9, adult ([facility]) Body Mass Index 50.0-59.9, adult Plantar fasciitis Plantar fascial fibromatosis Pre-operative examination- Primary Preoperative examination, unspecified Trigger thumb, right thumb Adjustment disorder with depressed mood Mild intermittent asthma with acute exacerbation Unspecified asthma, with exacerbation Bilateral lower extremity edema Edema BMI 50.0-59.9, adult ([facility]) Body Mass Index 50.0-59.9, adult Gastroesophageal reflux disease without esophagitis Esophageal reflux Other hyperlipidemia EAMON (obstructive sleep apnea) Obstructive sleep apnea (adult) (pediatric) Spinal stenosis, lumbar region, without neurogenic claudication Tobacco use disorder Hypothyroidism, unspecified type Prediabetes Other abnormal glucose History of 2019 novel coronavirus disease (COVID-19) Cough, unspecified type documented in this encounter [facility] note* Diagnosis Gastroesophageal reflux disease without esophagitis- Primary Esophageal reflux Elbow pain, right Pain in joint, upper arm Chest pain, unspecified type Tobacco use disorder Adjustment disorder with depressed mood BMI 50.0-59.9, adult ([facility]) Body Mass Index 50.0-59.9, adult Plantar fasciitis [...] (HCC) Morbid obesity Chronic hypoxemic respiratory failure ([facility]) Chronic respiratory failure Lung nodule Solitary pulmonary nodule Cigarette smoker Tobacco use disorder documented in this [facility]* Diagnosis Gastroesophageal reflux disease without esophagitis- Primary Esophageal reflux Elbow pain, right Pain in joint, upper arm Chest pain, unspecified type Tobacco use disorder Adjustment disorder with depressed mood BMI 50.0-59.9, adult ([facility]) Body Mass Index 50.0-59.9, adult Plantar fasciitis Plantar fascial fibromatosis Pre-operative examination- Primary Preoperative examination, unspecified Trigger thumb, right thumb Adjustment disorder with depressed mood Mild intermittent asthma with acute exacerbation Unspecified asthma, with exacerbation Bilateral lower extremity edema Edema BMI 50.0-59.9, adult ([facility]) Body Mass Index 50.0-59.9, adult Gastroesophageal reflux disease without esophagitis Esophageal reflux Other hyperlipidemia EAMON (obstructive sleep apnea) Obstructive sleep apnea (adult) (pediatric) Spinal stenosis, lumbar region, without neurogenic claudication Tobacco use disorder Hypothyroidism, unspecified type Prediabetes Other abnormal glucose History of 2019 novel coronavirus disease (COVID-19) Controlled type 2 diabetes mellitus without complication, without long-term current use of insulin ([facility])- Primary Morbid obesity with BMI of 50.0-59.9, adult ([facility]) Morbid obesity [facility] Diagnosis Gastroesophageal reflux disease without esophagitis- Primary Esophageal reflux Elbow pain, right Pain in joint, upper arm Chest pain, unspecified type Tobacco use disorder Adjustment disorder with depressed mood BMI 50.0-59.9, adult ([facility]) Body Mass Index 50.0-59.9, adult Plantar fasciitis Plantar fascial fibromatosis Pre-operative examination- Primary Preoperative examination, unspecified Trigger thumb, right thumb Adjustment disorder with depressed mood Mild intermittent asthma with acute exacerbation Unspecified asthma, with exacerbation Bilateral lower extremity edema Edema BMI 50.0-59.9, adult ([facility]) Body Mass Index 50.0-59.9, adult Gastroesophageal reflux [...] cough Acute cough documented in this encounter [facility] note* Diagnosis Gastroesophageal reflux disease without esophagitis- Primary Esophageal reflux Elbow pain, right Pain in joint, upper arm Chest pain, unspecified type Tobacco use disorder Adjustment disorder with depressed mood BMI 50.0-59.9, adult ([facility]) Body Mass Index 50.0-59.9, adult Plantar fasciitis Plantar fascial fibromatosis Pre-operative examination- Primary Preoperative examination, unspecified Trigger thumb, right thumb Adjustment disorder with depressed mood Mild intermittent asthma with acute exacerbation Unspecified asthma, with exacerbation Bilateral lower extremity edema Edema BMI 50.0-59.9, adult ([facility] [place] Body Mass Index 50.0-59.9, adult Gastroesophageal reflux disease without esophagitis Esophageal reflux Other hyperlipidemia EAMON (obstructive sleep apnea) Obstructive sleep apnea (adult) (pediatric) Spinal stenosis, lumbar region, without neurogenic claudication Tobacco use disorder Hypothyroidism, unspecified type Prediabetes Other abnormal glucose History of 2019 novel coronavirus disease (COVID-19) Acute cough documented in this encounter [facility] note* Diagnosis Gastroesophageal reflux disease without esophagitis- Primary Esophageal reflux Elbow pain, right Pain in joint, upper arm Chest pain, unspecified type Tobacco use disorder Adjustment disorder with depressed mood BMI 50.0-59.9, adult ([facility] Body Mass Index 50.0-59.9, adult Plantar fasciitis Plantar fascial fibromatosis Pre-operative examination- Primary Preoperative examination, unspecified Trigger thumb, right thumb Adjustment disorder with depressed mood Mild intermittent asthma with acute exacerbation Unspecified asthma, with exacerbation Bilateral lower extremity edema Edema BMI 50.0-59.9, adult ([facility]) Body Mass Index 50.0-59.9, adult Gastroesophageal reflux disease without esophagitis Esophageal reflux Other hyperlipidemia EAMON (obstructive sleep apnea) Obstructive sleep apnea (adult) (pediatric) Spinal stenosis, lumbar region, without neurogenic claudication Tobacco use disorder Hypothyroidism, unspecified type Prediabetes Other abnormal glucose History of 2019 novel coronavirus disease (COVID-19) Controlled type 2 diabetes mellitus without complication, without long-term current use of insulin ([facility])- Primary Hypothyroidism, unspecified type documented in this encounter [facility] note* Diagnosis Gastroesophageal reflux disease without esophagitis- Primary Esophageal reflux Elbow pain, right Pain in joint, upper arm Chest pain, unspecified type Tobacco use disorder Adjustment disorder with depressed mood BMI 50.0-59.9, adult ([facility]) Body Mass Index 50.0-59.9, adult Plantar fasciitis Plantar fascial fibromatosis Pre-operative examination- Primary Preoperative examination, unspecified Trigger thumb, right thumb Adjustment disorder with depressed mood Mild intermittent asthma with acute exacerbation (HCC) Unspecified asthma, with exacerbation Bilateral lower extremity edema Edema BMI 50.0-59.9, adult ([facility]) Body Mass Index 50.0-59.9, adult Gastroesophageal reflux disease without esophagitis Esophageal reflux Other hyperlipidemia EAMON (obstructive sleep apnea) Obstructive sleep apnea (adult) (pediatric) Spinal stenosis, lumbar region, without neurogenic claudication Tobacco use disorder Hypothyroidism, unspecified type Prediabetes Other abnormal glucose History of 2019 novel coronavirus disease (COVID-19) Chest pain, unspecified type Dyspnea, unspecified type Wheezing documented in this encounter [facility] note* Diagnosis Gastroesophageal reflux disease without esophagitis- Primary Esophageal reflux Elbow pain, right Pain in joint, upper arm Chest pain, unspecified type Tobacco use disorder Adjustment disorder with depressed mood BMI 50.0-59.9, adult ([facility]) Body Mass Index 50.0-59.9, adult Plantar fasciitis Plantar fascial fibromatosis Pre-operative examination- Primary Preoperative examination, unspecified Trigger thumb, right thumb Adjustment disorder with depressed mood Mild intermittent asthma with acute exacerbation (HCC) Unspecified asthma, with exacerbation Bilateral lower extremity edema Edema BMI 50.0-59.9, adult ([facility]) Body Mass Index 50.0-59.9, adult Gastroesophageal reflux [...] unspecified type Wheezing documented in this encounter [facility] note* Diagnosis Gastroesophageal reflux disease without esophagitis- Primary Esophageal reflux Elbow pain, right Pain in joint, upper arm Chest pain, unspecified type Tobacco use disorder Adjustment disorder with depressed mood BMI 50.0-59.9, adult ([facility]) Body Mass Index 50.0-59.9, adult Plantar fasciitis Plantar fascial fibromatosis Pre-operative examination- Primary Preoperative examination, unspecified Trigger thumb, right thumb Adjustment disorder with depressed mood Mild intermittent asthma with acute exacerbation (HCC) Unspecified asthma, with exacerbation Bilateral lower extremity edema Edema BMI 50.0-59.9, adult ([facility]) Body Mass Index 50.0-59.9, adult Gastroesophageal reflux disease without esophagitis Esophageal reflux Other hyperlipidemia EAMON (obstructive sleep apnea) Obstructive sleep apnea (adult) (pediatric) Spinal stenosis, lumbar region, without neurogenic claudication Tobacco use disorder Hypothyroidism, unspecified type Prediabetes Other abnormal glucose History of 2019 novel coronavirus disease (COVID-19) Hyperlipidemia Other and unspecified hyperlipidemia documented in this encounter [facility] note* Diagnosis Gastroesophageal reflux disease without esophagitis- Primary Esophageal reflux Elbow pain, right Pain in joint, upper arm Chest pain, unspecified type Tobacco use disorder Adjustment disorder with depressed mood BMI 50.0-59.9, adult ([facility]) Body Mass Index 50.0-59.9, adult Plantar fasciitis Plantar fascial fibromatosis Pre-operative examination- Primary Preoperative examination, unspecified Trigger thumb, right thumb Adjustment disorder with depressed mood Mild intermittent asthma with acute exacerbation (HCC) Unspecified asthma, with exacerbation Bilateral lower extremity edema Edema BMI 50.0-59.9, adult ([facility]) Body Mass Index 50.0-59.9, adult Gastroesophageal reflux [...] Abnormal coagulation profile documented in this encounter [facility] note* Diagnosis Gastroesophageal reflux disease without esophagitis- Primary Esophageal reflux Elbow pain, right Pain in joint, upper arm Chest pain, unspecified type Tobacco use disorder Adjustment disorder with depressed mood BMI 50.0-59.9, adult ([facility]) Body Mass Index 50.0-59.9, adult Plantar fasciitis Plantar fascial fibromatosis Pre-operative examination- Primary Preoperative examination, unspecified Trigger thumb, right thumb Adjustment disorder with depressed mood Mild intermittent asthma with acute exacerbation (HCC) Unspecified asthma, with exacerbation Bilateral lower extremity edema Edema BMI 50.0-59.9, adult ([facility]) Body Mass Index 50.0-59.9, adult Gastroesophageal reflux [...] Fatigue, unspecified type documented in this encounter [facility] note* Diagnosis Gastroesophageal reflux disease without esophagitis- Primary Esophageal reflux Elbow pain, right Pain in joint, upper arm Chest pain, unspecified type Tobacco use disorder Adjustment disorder with depressed mood BMI 50.0-59.9, adult ([facility]) Body Mass Index 50.0-59.9, adult Plantar fasciitis Plantar fascial fibromatosis Pre-operative examination- Primary Preoperative examination, unspecified Trigger thumb, right thumb Adjustment disorder with depressed mood Mild intermittent asthma with acute exacerbation (HCC) Unspecified asthma, with exacerbation Bilateral lower extremity edema Edema BMI 50.0-59.9, adult ([facility]) Body Mass Index 50.0-59.9, adult Gastroesophageal reflux disease without esophagitis Esophageal reflux Other hyperlipidemia EAMON (obstructive sleep apnea) Obstructive sleep apnea (adult) (pediatric) Spinal stenosis, lumbar region, without neurogenic claudication Tobacco use disorder Hypothyroidism, unspecified type Prediabetes Other abnormal glucose History of 2019 novel coronavirus disease (COVID-19) Controlled type 2 diabetes mellitus without complication, without long-term current use of insulin ([facility]) Morbid obesity with BMI of 50.0-59.9, adult (HCC) Morbid obesity documented in this encounter [facility] note* Diagnosis Gastroesophageal reflux disease without [...] lower extremity edema Edema BMI 50.0-59.9, adult ([facility]) Body Mass Index 50.0-59.9, adult Gastroesophageal reflux [...] Solitary pulmonary nodule documented in this encounter [facility] note* Diagnosis Gastroesophageal reflux disease without [...] and subcutaneous tissue documented in this encounter [facility] note* Diagnosis Gastroesophageal reflux disease without [...] for breast cancer documented in this encounter [facility] note* Diagnosis Gastroesophageal reflux disease without [...] of unspecified site documented in this encounter [facility] Discharge instructions No data available for this section [facility] Progress note No data available for this section [facility] Robin Reason for referral (narrative)* Diagnostic Procedure Only (Routine) - Pending Review Specialty Diagnoses / Procedures Referred By Sophia douglass Referred To Contact [facility] Diagnoses Encounter for screening mammogram for breast cancer Procedures JET SCREENING SCREENING MAMMOGRAPHY BI 2-VIEW BREAST INC Babar Islas MD [address] [place] [address] [facility] [address] [place] [address] Referral ID Status Reason Start Date Expiration Date Visits Requested Visits Authorized [id number] Pending Review Auto-Generat ed Referral 01/28/2022 02/27/2023 1 1 [facility] for referral (narrative)* Diagnostic Procedure Only (Routine) - Pending Review Specialty Diagnoses / Procedures Referred By Sophia douglass Referred To Contact [facility] Diagnoses RUQ pain Nausea Epigastric pain Diarrhea, unspecified type Procedures US ABD RT UPPER QUADRANT US ABDOMINAL REAL TIME W/IMAGE LIMITED Caryn Lowery APRN.CNP [address] [place] [address] [facility] Referral ID Status Reason Start Date Expiration Date Visits Requested Visits Authorized [id number] Pending Review Auto-Generat ed Referral 03/25/2022 04/24/2023 1 1 [facility] for referral (narrative)* Outpatient Procedure (Routine) - Pending Review Specialty Diagnoses / Procedures Referred By Sophia douglass Referred To Contact [facility] Diagnoses Nausea Epigastric pain Decreased appetite Procedures EGD DIAGNOSTIC ESOPHAGOGASTRODUODENOS COPY TRANSORAL DIAGNOSTIC Kelli Mendenhall PA-C [address] [place] [address] [facility] [address] [place] [address] Referral ID Status Reason Start Date Expiration Date Visits Requested Visits Authorized [id number] Pending Review Auto-Generat ed Referral 06/03/2022 06/03/2023 1 1 [facility] for referral (narrative)* Outpatient Procedure (Routine) - Pending Review Specialty Diagnoses / Procedures Referred By Contac t Referred To Contact [facility] Diagnoses Epigastric pain Nausea and vomiting, unspecified vomiting type Procedures EGD DIAGNOSTIC ESOPHAGOGASTRODUODENOSC OPY TRANSORAL DIAGNOSTIC Jared Lauren PA-C [address] [place] [address] [place] [address] [address] Referral ID Status Reason Start Date Expiration Date Visits Requested Visits Authorized [id number] Pending Review Auto-Generat ed Referral 06/17/2022 06/17/2023 1 1 * Medication Prior Authorization - Closed Specialty Diagnoses / Procedures Referred By Contac t Referred To Contact Diagnoses Rectal bleeding Diarrhea, unspecified type Jared Lauren PA-C [address] [place] [address] [place] [address] Referral ID Status Reason Start Date Expiration Date Visits Re quested Visits Authorized [id number] Closed 1 1 * Outpatient Procedure (Routine) - Pending Review Specialty Diagnoses / Procedures Referred By Contac t Referred To Contact [facility] Diagnoses Rectal bleeding Diarrhea, unspecified type Procedures COLONOSCOPY DIAGNOSTIC COLONOSCOPY FLX DX W/COLLJ SPEC WHEN PFRMD Jared Lauren PA-C [address] [place] [address] [place] [address] [address] Referral ID Status Reason Start Date Expiration Date Visits Requested Visits Authorized [id number] Pending Review Auto-Generat ed Referral 06/17/2022 06/17/2023 1 1 [facility] for referral (narrative)* Outpatient Procedure (Routine) - Pending Review Specialty Diagnoses / Procedures Referred By Contac t Referred To Contact [facility] Diagnoses Shortness of breath Chest pain, unspecified type Procedures ECHO ECHO TTHRC R-T 2D W/WOM-MODE COMPL SPEC&COLR D Caryn Lowery APRN.INSTRUMENT REPAIRER HELPER [address] [place] [address] [facility] [address] [place] [address] Referral ID Status Reason Start Date Expiration Date Visits Requested Visits Authorized [id number] Pending Review Auto-Generat ed Referral 08/24/2022 08/24/2023 1 1 * Outpatient Procedure (Routine) - Authorized Specialty Diagnoses / Procedures Referred By Contac t Referred To Contact [facility] Diagnoses Left leg swelling Left leg pain Procedures US LEG VEIN DVT UNL VAS LAB DUP-SCAN XTR VEINS UNILATERAL/LIMITED STUDY Caryn Lowery APRN.INSTRUMENT REPAIRER HELPER [address] [place] [address] [facility] [address] [place] [address] Referral ID Status Reason Start Date Expiration Date Visits Requested Visits Authorized [id number] Authorized Auto-Generat ed Referral 08/24/2022 08/24/2023 1 1 [facility] for referral (narrative)* Diagnostic Procedure Only (Routine) - Pending Review Specialty Diagnoses / Procedures Referred By Contac t Referred To Contact [facility] Diagnoses Encounter for screening mammogram for breast cancer Procedures JET SCREENING SCREENING MAMMOGRAPHY BI 2-VIEW BREAST INC Babar Islas MD [address] [place] [address] [facility] [address] [place] [address] Referral ID Status Reason Start Date Expiration Date Visits Requested Visits Authorized [id number] Pending Review Auto-Generat ed Referral 12/30/2022 01/29/2024 1 1 [facility] for referral (narrative)* Diagnostic Procedure Only (Routine) - Closed Specialty Diagnoses / Procedures Referred By Contac t Referred To Contact [facility] Diagnoses RUQ pain Nausea Epigastric pain Diarrhea, unspecified type Procedures US ABD RT UPPER QUADRANT US ABDOMINAL REAL TIME W/IMAGE LIMITED Caryn Lowery APRN.INSTRUMENT REPAIRER HELPER [address] [place] [address] [place] [address] Referral ID Status Reason Start Date Expiration Date V isits Requested Visits Authorized [id number] Closed Auto-Generate d Referral 03/25/2022 04/24/2023 1 1 [facility] for referral (narrative)* Diagnostic Procedure Only (Urgent) - Authorized Specialty Diagnoses / Procedures Referred By Edwardac t Referred To Contact [facility] Diagnoses Epigastric pain Vomiting and diarrhea Procedures US ABD RIGHT UPPER QUADRANT US ABDOMINAL REAL TIME W/IMAGE LIMITED Caryn Lowery APRN.INSTRUMENT REPAIRER HELPER [address] [place] [address] [place] [address] Referral ID Status Reason Start Date Expiration Date Visits Requested Visits Authorized [id number] Authorized Auto-Generat ed Referral 11/15/2023 12/14/2024 1 1 [facility] for referral (narrative)* Diagnostic Procedure Only (Routine) - New Request Specialty Diagnoses / Procedures Referred By Contac t Referred To Contact [facility] Diagnoses Encounter for screening mammogram for breast cancer Procedures JET SCREENING W ROXANNA SCREENING DIGITAL BREAST TOMOSYNTHESIS BI SCREENING MAMMOGRAPHY BI 2-VIEW BREAST INC Babar Islas MD [address] [place] [address] [facility] [address] [place] [address] Referral ID Status Reason Start Date Expiration Date Visits Requested Visits Authorized [id number] New Request Auto-Generat ed Referral 12/01/2023 12/30/2024 1 1 [facility] for referral (narrative)* Outpatient Procedure (Routine) - New Request Specialty Diagnoses / Procedures Referred By Edwardac t Referred To Contact [facility] Diagnoses Chest pain, unspecified type Shortness of breath Palpitations Procedures ECG COMPLETE ECG ROUTINE ECG W/LEAST 12 LDS W/I&R Caryn Lowery APRN.INSTRUMENT REPAIRER HELPER [address] [place] [address] [facility] [address] [place] [address] Referral ID Status Reason Start Date Expiration Date Visits Requested Visits Authorized [id number] New Request Auto-Generat ed Referral 01/03/2024 01/02/2025 1 1 [facility] for referral (narrative)* Diagnostic Procedure Only (Routine) - New Request Specialty Diagnoses / Procedures Referred By Contac t Referred To Contact XR IMAGING Diagnoses Right knee pain, unspecified chronicity Procedures XR KNEE GENERAL 4V AP BOTH/PA BOTH/LAT/MERC RIGHT RADIOLOGIC EXAM KNEE COMPLETE 4/MORE VIEWS Duran Blunt MD [address] [address] [place] [place] [address] [place] [address] Referral ID Status Reason Start Date Expiration Date Visits Requested Visits Authorized [id number] New Request Auto-Generat ed Referral 01/19/2024 02/17/2025 1 1 [facility] for referral (narrative)* Diagnostic Procedure Only (Urgent) - Closed Specialty Diagnoses / Procedures Referred By Edwardac t Referred To Contact [facility] Diagnoses Epigastric pain Vomiting and diarrhea Procedures US ABD RIGHT UPPER QUADRANT US ABDOMINAL REAL TIME W/IMAGE LIMITED Caryn Lowery APRN.INSTRUMENT REPAIRER HELPER [address] [place] [address] [place] [address] Referral ID Status Reason Start Date Expiration Date V isits Requested Visits Authorized [id number] Closed Auto-Generate d Referral 11/15/2023 12/14/2024 1 1 [facility] for referral (narrative)* Diagnostic Procedure Only (Routine) - Closed Specialty Diagnoses / Procedures Referred By Contac t Referred To Contact XR IMAGING Diagnoses Acute pain of right knee Procedures XR KNEE GENERAL 4V AP BOTH/PA BOTH/LAT/MERC RIGHT RADIOLOGIC EXAM KNEE COMPLETE 4/MORE VIEWS Angelika sOborne APRN.INSTRUMENT REPAIRER HELPER [address] [place] [address] [place] [address] Referral ID Status Reason Start Date Expiration Date V isits Requested Visits Authorized [id number] Closed Auto-Generate d Referral 05/13/2022 06/12/2023 1 1 [facility] for referral (narrative)* Outpatient Procedure (Routine) - New Request Specialty Diagnoses / Procedures Referred By Contac t Referred To Contact [facility] Diagnoses 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 right upper extremity Procedures EMG(NEURO/NI) NERVE CONDUCTION STUDIES 9-10 STUDIES Duran Blunt MD [address] [place] [address] [facility] [address] [place] [id number] Referral ID Status Reason Start Date Expiration Date Visits Requested Visits Authorized [id number] New Request Auto-Generat ed Referral 03/07/2025 1 1 [facility] for visit Narrative* Diagnostic Procedure Only (Urgent) - Closed Specialty Diagnoses / Procedures Referred By Contac t Referred To Contact [facility] Diagnoses Epigastric pain Vomiting and diarrhea Procedures US ABD RIGHT UPPER QUADRANT US ABDOMINAL REAL TIME W/IMAGE LIMITED Caryn Lowery APRN.INSTRUMENT REPAIRER HELPER [address] [place] [address] [place] [address] Referral ID Status Reason Start Date Expiration Date V isits Requested Visits Authorized [id number] Closed Auto-Generate d Referral 11/15/2023 12/14/2024 1 1 [facility] for visit Narrative* Diagnostic Procedure Only (Routine) - Closed Specialty Diagnoses / Procedures Referred By Contstefan t Referred To Contact XR IMAGING Diagnoses Acute pain of right knee Procedures XR KNEE GENERAL 4V AP BOTH/PA BOTH/LAT/MERC RIGHT RADIOLOGIC EXAM KNEE COMPLETE 4/MORE VIEWS Angelika Osborne, LIIL.INSTRUMENT REPAIRER HELPER [address] [place] [address] [place] [address] Referral ID Status Reason Start Date Expiration Date V isits Requested Visits Authorized [id number] Closed Auto-Generate d Referral 05/13/2022 06/12/2023 1 1 [facility] note* Geraldine Calabrese: PERFORM Event Display: Patient Summary Documents Authored Date: [id number] [facility] Summary Purpose Family History Relationship Condition Age at Onset Recorded Date/T kathleen Not Specified Malignant neoplasm of cervix Unknown Arthritis Unknown Depression Unknown mother Cardiac disease Unknown father Hypertension Unknown Advance Directives Documents on File Type Date 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 Advance Directive(s) Advance Directive(s) 07/02/2021 3:42 PM Advance Directive(s) 07/12/2019 3:17 PM Advance Directive(s) 07/12/2019 3:21 PM Advance Directive(s) 05/18/2018 12:00 PM Advance Directive(s) 04/15/2018 5:08 PM Advance Directive(s) 04/02/2017 10:58 AM Advance Directive(s) 03/02/2017 8:52 AM Advance Directive(s) 02/26/2017 1:59 PM Advance Directive Response Recorded Date/ Time Living Will No July 27, 2022 3:22pm Power of Manager Regional Sales No July 27 3:22pm Advance Directive Response Recorded Date/ Time Living Will No July 27, 2022 2:22pm Power of Manager [employer] No July 27 2:22pm Reason for Referral Specialty Diagnoses / Procedures Referred By Sophia douglass Referred To Contact Gastroenterology Diagnoses Left lower quadrant abdominal pain Nausea Diarrhea, unspecified type Procedures CONSULT TO GASTROENTEROLOGY OFFICE/OUTPATIENT NEW HIGH MDM 60-74 MINUTES Older, Caryn, PHARMACEUTICAL PROCESS ENGINEER.INSTRUMENT REPAIRER HELPER [address] [place] [address] Referral ID Status Reason Start Date Expiration Date Visits Requested Visits Authorized [id number] Authorized PCP Requested Referral 2 04/08/2023 1 1 Specialty Diagnoses / Procedures Referred By Contac t Referred To Contact CT IMAGING Diagnoses Left lower quadrant abdominal pain Procedures CT ABD/PEL W IVCON CT ABD & PELVIS W/CONTRAST Caryn Lowery APRN.INSTRUMENT REPAIRER HELPER [address] [place] [address] Ct Imaging Referral ID Status Reason Start Date Expiration Date Visits Requested Visits Authorized [id number] Authorized Auto-Generat ed Referral 2 05/08/2022 1 1 Specialty Diagnoses / Procedures Referred By Contac t Referred To Contact Nutrition Diagnoses Controlled type 2 diabetes mellitus without complication, without long-term current use of insulin ([facility]) Class 3 drug-induced obesity with serious comorbidity and body mass index (BMI) of 50.0 to 59.9 in adult (HCC) Procedures CONSULT TO NUTRITION THERAPY MEDICAL NUTRITION ASSMT&IVNTJ INDIV EACH 15 [place] MEDICAL NUTRITION ASSMT&IVNTJ INDIV EACH 15 [place] MEDICAL NUTRITION ASSMT&IVNTJ INDIV EACH 15 [place] MEDICAL NUTRITION ASSMT&IVNTJ INDIV EACH 15 NC Caryn Lowery APRN.INSTRUMENT REPAIRER HELPER [address] [place] [address] Referral ID Status Reason Start Date Expiration Date Visits Requested Visits Authorized [id number] Authorized PCP Requested Referral 11/23/2022 11/23/2023 1 1 Specialty Diagnoses / Procedures Referred By Contac t Referred To Contact Gastroenterology Diagnoses Epigastric pain Vomiting and diarrhea Procedures CONSULT TO GASTROENTEROLOGY OFFICE/OUTPATIENT [facility] MDM 60 MINUTES Caryn Lowery APRN.INSTRUMENT REPAIRER HELPER [address] [place] [address] Referral ID Status Reason Start Date Expiration Date Visits Requested Visits Authorized [id number] Authorized PCP Requested Referral 11/16/2023 11/15/2024 1 1 Specialty Diagnoses / Procedures Referred By Contac t Referred To Contact CT IMAGING Diagnoses Chest pain, unspecified type Shortness of breath Palpitations Elevated d-dimer Procedures CT CHEST W IVCON PE DIAGNOSTIC COMPUTED TOMOGRAPHY THORAX W/CONTRAST Caryn Lowery APRN.INSTRUMENT REPAIRER HELPER [address] [place] [address] [place] [id number] Referral ID Status Reason Start Date Expiration Date Visits Requested Visits Authorized [id number] New Request Auto-Generat ed Referral 01/05/2024 02/03/2025 1 1 Specialty Diagnoses / Procedures Referred By Contac t Referred To Contact CT IMAGING Diagnoses Shortness of breath Cough, unspecified type Wheezing Low O2 saturation Subacute cough Procedures CT CHEST W IVCON DIAGNOSTIC COMPUTED TOMOGRAPHY THORAX W/CONTRAST Caryn Lowery APRN.INSTRUMENT REPAIRER HELPER [address] [place] [address] Ct Imaging [id number] Referral ID Status Reason Start Date Expiration Date Visits Requested Visits Authorized [id number] Additional Clinical Info Needed Auto-Generat ed Referral 02/17/2024 03/18/2025 1 1 Specialty Diagnoses / Procedures Referred By Contac t Referred To Contact Diagnoses Mild persistent asthma without complication Elle Boone MD [address] [facility] [place] [address] Referral ID Status Reason Start Date Expiration Date V isits Requested Visits Authorized [id number] Pending Review 1 1 Chief Complaint and [...] section and content) DATE CREATED AUTHOR 07/24/2021 [facility] DATE CREATED AUTHOR AUTHOR'S ORGANIZ ATION 07/03/2022 [facility] DATE CREATED AUTHOR AUTHOR'S ORGANIZ ATION 01/10/2024 [facility] ([place]) DATE CREATED AUTHOR AUTHOR'S ORGANIZ ATION 03/23/2024 [facility] DATE CREATED AUTHOR AUTHOR'S ORGANIZ ATION 04/03/2024 [facility] DATE CREATED AUTHOR AUTHOR'S ORGANIZ ATION 10/19/2024 [facility] DATE CREATED AUTHOR AUTHOR'S ORGANIZ ATION 12/23/2024 [facility] Source Comments (unrecognize d section and content) In the event this informatio n is protected by the Federal Confidentiality of Alcohol and Drug Abuse Patient Records regulations: The Federal rules restrict any use of the information to criminally investigate or prosecute any alcohol or drug abuse patient.[facility] the event this information is protected by the Federal Confidentiality of Alcohol and Drug Abuse Patient Records regulations: The Federal rules restrict any use of the information to criminally investigate or prosecute any alcohol or drug abuse patient.[facility] HospitalIn the event this information is protected by the Federal Confidentiality of Alcohol and Drug Abuse Patient Records regulations: The Federal rules restrict any use of the information to criminally investigate or prosecute any alcohol or drug abuse patient.[facility] HospitalIn the event this information is protected by the Federal Confidentiality of Alcohol and Drug Abuse Patient Records regulations: The Federal rules restrict any use of the information to criminally investigate or prosecute any alcohol or drug abuse patient.[facility] HospitalIn the event this information is protected by the Federal Confidentiality of Alcohol and Drug Abuse Patient Records regulations: The Federal rules restrict any use of the information to criminally investigate or prosecute any alcohol or drug abuse patient.[facility] HospitalIn the event this information is protected by the Federal Confidentiality of Alcohol and Drug Abuse Patient Records regulations: The Federal rules restrict any use of the information to criminally investigate or prosecute any alcohol or drug abuse patient.[facility] HospitalIn the event this information is protected by the Federal Confidentiality of Alcohol and Drug Abuse Patient Records regulations: The Federal rules restrict any use of the information to criminally investigate or prosecute any alcohol or drug abuse patient.[facility] HospitalIn the event this information is protected by the Federal Confidentiality of Alcohol and Drug Abuse Patient Records regulations: The Federal rules restrict any use of the information to criminally investigate or prosecute any alcohol or drug abuse patient.[facility] HospitalIn the event this information is protected by the Federal Confidentiality of Alcohol and Drug Abuse Patient Records regulations: The Federal rules restrict any use of the information to criminally investigate or prosecute any alcohol or drug abuse patient.[facility] HospitalIn the event this information is protected by the Federal Confidentiality of Alcohol and Drug Abuse Patient Records regulations: The Federal rules restrict any use of the information to criminally investigate or prosecute any alcohol or drug abuse patient.[facility] HospitalIn the event this information is protected by the Federal Confidentiality of Alcohol and Drug Abuse Patient Records regulations: The Federal rules restrict any use of the information to criminally investigate or prosecute any alcohol or drug abuse patient.[facility] HospitalIn the event this information is protected by the Federal Confidentiality of Alcohol and Drug Abuse Patient Records regulations: The Federal rules restrict any use of the information to criminally investigate or prosecute any alcohol or drug abuse patient.[facility] HospitalIn the event this information is protected by the Federal Confidentiality of Alcohol and Drug Abuse Patient Records regulations: The Federal rules restrict any use of the information to criminally investigate or prosecute any alcohol or drug abuse patient.[facility] HospitalIn the event this information is protected by the Federal Confidentiality of Alcohol and Drug Abuse Patient Records regulations: The Federal rules restrict any use of the information to criminally investigate or prosecute any alcohol or drug abuse patient.[facility] HospitalIn the event this information is protected by the Federal Confidentiality of Alcohol and Drug Abuse Patient Records regulations: The Federal rules restrict any use of the information to criminally investigate or prosecute any alcohol or drug abuse patient.[facility] HospitalIn the event this information is protected by the Federal Confidentiality of Alcohol and Drug Abuse Patient Records regulations: The Federal rules restrict any use of the information to criminally investigate or prosecute any alcohol or drug abuse patient.[facility] HospitalIn the event this information is protected by the Federal Confidentiality of Alcohol and Drug Abuse Patient Records regulations: The Federal rules restrict any use of the information to criminally investigate or prosecute any alcohol or drug abuse patient.[facility] HospitalIn the event this information is protected by the Federal Confidentiality of Alcohol and Drug Abuse Patient Records regulations: The Federal rules restrict any use of the information to criminally investigate or prosecute any alcohol or drug abuse patient.[facility] HospitalIn the event this information is protected by the Federal Confidentiality of Alcohol and Drug Abuse Patient Records regulations: The Federal rules restrict any use of the information to criminally investigate or prosecute any alcohol or drug abuse patient.[facility] HospitalIn the event this information is protected by the Federal Confidentiality of Alcohol and Drug Abuse Patient Records regulations: The Federal rules restrict any use of the information to criminally investigate or prosecute any alcohol or drug abuse patient.[facility] HospitalIn the event this information is protected by the Federal Confidentiality of Alcohol and Drug Abuse Patient Records regulations: The Federal rules restrict any use of the information to criminally investigate or prosecute any alcohol or drug abuse patient.[facility] HospitalIn the event this information is protected by the Federal Confidentiality of Alcohol and Drug Abuse Patient Records regulations: The Federal rules restrict any use of the information to criminally investigate or prosecute any alcohol or drug abuse patient.[facility] HospitalIn the event this information is protected by the Federal Confidentiality of Alcohol and Drug Abuse Patient Records regulations: The Federal rules restrict any use of the information to criminally investigate or prosecute any alcohol or drug abuse patient.[facility] HospitalIn the event this information is protected by the Federal Confidentiality of Alcohol and Drug Abuse Patient Records regulations: The Federal rules restrict any use of the information to criminally investigate or prosecute any alcohol or drug abuse patient.[facility] HospitalIn the event this information is protected by the Federal Confidentiality of Alcohol and Drug Abuse Patient Records regulations: The Federal rules restrict any use of the information to criminally investigate or prosecute any alcohol or drug abuse patient.[facility] HospitalIn the event this information is protected by the Federal Confidentiality of Alcohol and Drug Abuse Patient Records regulations: The Federal rules restrict any use of the information to criminally investigate or prosecute any alcohol or drug abuse patient.[facility] HospitalIn the event this information is protected by the Federal Confidentiality of Alcohol and Drug Abuse Patient Records regulations: The Federal rules restrict any use of the information to criminally investigate or prosecute any alcohol or drug abuse patient.[facility] HospitalIn the event this information is protected by the Federal Confidentiality of Alcohol and Drug Abuse Patient Records regulations: The Federal rules restrict any use of the information to criminally investigate or prosecute any alcohol or drug abuse patient.[facility] HospitalIn the event this information is protected by the Federal Confidentiality of Alcohol and Drug Abuse Patient Records regulations: The Federal rules restrict any use of the information to criminally investigate or prosecute any alcohol or drug abuse patient.[facility] HospitalIn the event this information is protected by the Federal Confidentiality of Alcohol and Drug Abuse Patient Records regulations: The Federal rules restrict any use of the information to criminally investigate or prosecute any alcohol or drug abuse patient.[facility] HospitalIn the event this information is protected by the Federal Confidentiality of Alcohol and Drug Abuse Patient Records regulations: The Federal rules restrict any use of the information to criminally investigate or prosecute any alcohol or drug abuse patient.[facility] HospitalIn the event this information is protected by the Federal Confidentiality of Alcohol and Drug Abuse Patient Records regulations: The Federal rules restrict any use of the information to criminally investigate or prosecute any alcohol or drug abuse patient.[facility] HospitalIn the event this information is protected by the Federal Confidentiality of Alcohol and Drug Abuse Patient Records regulations: The Federal rules restrict any use of the information to criminally investigate or prosecute any alcohol or drug abuse patient.[facility] HospitalIn the event this information is protected by the Federal Confidentiality of Alcohol and Drug Abuse Patient Records regulations: The Federal rules restrict any use of the information to criminally investigate or prosecute any alcohol or drug abuse patient.[facility] HospitalIn the event this information is protected by the Federal Confidentiality of Alcohol and Drug Abuse Patient Records regulations: The Federal rules restrict any use of the information to criminally investigate or prosecute any alcohol or drug abuse patient.[facility] HospitalIn the event this information is protected by the Federal Confidentiality of Alcohol and Drug Abuse Patient Records regulations: The Federal rules restrict any use of the information to criminally investigate or prosecute any alcohol or drug abuse patient.[facility] HospitalIn the event this information is protected by the Federal Confidentiality of Alcohol and Drug Abuse Patient Records regulations: The Federal rules restrict any use of the information to criminally investigate or prosecute any alcohol or drug abuse patient.[facility] HospitalIn the event this information is protected by the Federal Confidentiality of Alcohol and Drug Abuse Patient Records regulations: The Federal rules restrict any use of the information to criminally investigate or prosecute any alcohol or drug abuse patient.[facility] HospitalIn the event this information is protected by the Federal Confidentiality of Alcohol and Drug Abuse Patient Records regulations: The Federal rules restrict any use of the information to criminally investigate or prosecute any alcohol or drug abuse patient.[facility] HospitalIn the event this information is protected by the Federal Confidentiality of Alcohol and Drug Abuse Patient Records regulations: The Federal rules restrict any use of the information to criminally investigate or prosecute any alcohol or drug abuse patient.[facility] HospitalIn the event this information is protected by the Federal Confidentiality of Alcohol and Drug Abuse Patient Records regulations: The Federal rules restrict any use of the information to criminally investigate or prosecute any alcohol or drug abuse patient.[facility] HospitalIn the event this information is protected by the Federal Confidentiality of Alcohol and Drug Abuse Patient Records regulations: The Federal rules restrict any use of the information to criminally investigate or prosecute any alcohol or drug abuse patient.[facility] HospitalIn the event this information is protected by the Federal Confidentiality of Alcohol and Drug Abuse Patient Records regulations: The Federal rules restrict any use of the information to criminally investigate or prosecute any alcohol or drug abuse patient.[facility] HospitalIn the event this information is protected by the Federal Confidentiality of Alcohol and Drug Abuse Patient Records regulations: The Federal rules restrict any use of the information to criminally investigate or prosecute any alcohol or drug abuse patient.[facility] HospitalIn the event this information is protected by the Federal Confidentiality of Alcohol and Drug Abuse Patient Records regulations: The Federal rules restrict any use of the information to criminally investigate or prosecute any alcohol or drug abuse patient.[facility] HospitalIn the event this information is protected by the Federal Confidentiality of Alcohol and Drug Abuse Patient Records regulations: The Federal rules restrict any use of the information to criminally investigate or prosecute any alcohol or drug abuse patient.[facility] HospitalIn the event this information is protected by the Federal Confidentiality of Alcohol and Drug Abuse Patient Records regulations: The Federal rules restrict any use of the information to criminally investigate or prosecute any alcohol or drug abuse patient.[facility] HospitalIn the event this information is protected by the Federal Confidentiality of Alcohol and Drug Abuse Patient Records regulations: The Federal rules restrict any use of the information to criminally investigate or prosecute any alcohol or drug abuse patient.[facility] HospitalIn the event this information is protected by the Federal Confidentiality of Alcohol and Drug Abuse Patient Records regulations: The Federal rules restrict any use of the information to criminally investigate or prosecute any alcohol or drug abuse patient.[facility] HospitalIn the event this information is protected by the Federal Confidentiality of Alcohol and Drug Abuse Patient Records regulations: The Federal rules restrict any use of the information to criminally investigate or prosecute any alcohol or drug abuse patient.[facility] HospitalIn the event this information is protected by the Federal Confidentiality of Alcohol and Drug Abuse Patient Records regulations: The Federal rules restrict any use of the information to criminally investigate or prosecute any alcohol or drug abuse patient.[facility] HospitalIn the event this information is protected by the Federal Confidentiality of Alcohol and Drug Abuse Patient Records regulations: The Federal rules restrict any use of the information to criminally investigate or prosecute any alcohol or drug abuse patient.[facility] HospitalIn the event this information is protected by the Federal Confidentiality of Alcohol and Drug Abuse Patient Records regulations: The Federal rules restrict any use of the information to criminally investigate or prosecute any alcohol or drug abuse patient.[facility] HospitalIn the event this information is protected by the Federal Confidentiality of Alcohol and Drug Abuse Patient Records regulations: The Federal rules restrict any use of the information to criminally investigate or prosecute any alcohol or drug abuse patient.[facility] HospitalIn the event this information is protected by the Federal Confidentiality of Alcohol and Drug Abuse Patient Records regulations: The Federal rules restrict any use of the information to criminally investigate or prosecute any alcohol or drug abuse patient.[facility] HospitalIn the event this information is protected by the Federal Confidentiality of Alcohol and Drug Abuse Patient Records regulations: The Federal rules restrict any use of the information to criminally investigate or prosecute any alcohol or drug abuse patient.[facility] HospitalIn the event this information is protected by the Federal Confidentiality of Alcohol and Drug Abuse Patient Records regulations: The Federal rules restrict any use of the information to criminally investigate or prosecute any alcohol or drug abuse patient.[facility] HospitalIn the event this information is protected by the Federal Confidentiality of Alcohol and Drug Abuse Patient Records regulations: The Federal rules restrict any use of the information to criminally investigate or prosecute any alcohol or drug abuse patient.[facility] HospitalIn the event this information is protected by the Federal Confidentiality of Alcohol and Drug Abuse Patient Records regulations: The Federal rules restrict any use of the information to criminally investigate or prosecute any alcohol or drug abuse patient.[facility] HospitalIn the event this information is protected by the Federal Confidentiality of Alcohol and Drug Abuse Patient Records regulations: The Federal rules restrict any use of the information to criminally investigate or prosecute any alcohol or drug abuse patient.[facility] HospitalIn the event this information is protected by the Federal Confidentiality of Alcohol and Drug Abuse Patient Records regulations: The Federal rules restrict any use of the information to criminally investigate or prosecute any alcohol or drug abuse patient.[facility] HospitalIn the event this information is protected by the Federal Confidentiality of Alcohol and Drug Abuse Patient Records regulations: The Federal rules restrict any use of the information to criminally investigate or prosecute any alcohol or drug abuse patient.[facility] HospitalIn the event this information is protected by the Federal Confidentiality of Alcohol and Drug Abuse Patient Records regulations: The Federal rules restrict any use of the information to criminally investigate or prosecute any alcohol or drug abuse patient.[facility] HospitalIn the event this information is protected by the Federal Confidentiality of Alcohol and Drug Abuse Patient Records regulations: The Federal rules restrict any use of the information to criminally investigate or prosecute any alcohol or drug abuse patient.[facility] HospitalIn the event this information is protected by the Federal Confidentiality of Alcohol and Drug Abuse Patient Records regulations: The Federal rules restrict any use of the information to criminally investigate or prosecute any alcohol or drug abuse patient.[facility] HospitalIn the event this information is protected by the Federal Confidentiality of Alcohol and Drug Abuse Patient Records regulations: The Federal rules restrict any use of the information to criminally investigate or prosecute any alcohol or drug abuse patient.[facility] HospitalIn the event this information is protected by the Federal Confidentiality of Alcohol and Drug Abuse Patient Records regulations: The Federal rules restrict any use of the information to criminally investigate or prosecute any alcohol or drug abuse patient.[facility] HospitalIn the event this information is protected by the Federal Confidentiality of Alcohol and Drug Abuse Patient Records regulations: The Federal rules restrict any use of the information to criminally investigate or prosecute any alcohol or drug abuse patient.[facility] HospitalIn the event this information is protected by the Federal Confidentiality of Alcohol and Drug Abuse Patient Records regulations: The Federal rules restrict any use of the information to criminally investigate or prosecute any alcohol or drug abuse patient.[facility] HospitalIn the event this information is protected by the Federal Confidentiality of Alcohol and Drug Abuse Patient Records regulations: The Federal rules restrict any use of the information to criminally investigate or prosecute any alcohol or drug abuse patient.[facility] HospitalIn the event this information is protected by the Federal Confidentiality of Alcohol and Drug Abuse Patient Records regulations: The Federal rules restrict any use of the information to criminally investigate or prosecute any alcohol or drug abuse patient.[facility] HospitalIn the event this information is protected by the Federal Confidentiality of Alcohol and Drug Abuse Patient Records regulations: The Federal rules restrict any use of the information to criminally investigate or prosecute any alcohol or drug abuse patient.[facility] HospitalIn the event this information is protected by the Federal Confidentiality of Alcohol and Drug Abuse Patient Records regulations: The Federal rules restrict any use of the information to criminally investigate or prosecute any alcohol or drug abuse patient.[facility] HospitalIn the event this information is protected by the Federal Confidentiality of Alcohol and Drug Abuse Patient Records regulations: The Federal rules restrict any use of the information to criminally investigate or prosecute any alcohol or drug abuse patient.[facility] HospitalIn the event this information is protected by the Federal Confidentiality of Alcohol and Drug Abuse Patient Records regulations: The Federal rules restrict any use of the information to criminally investigate or prosecute any alcohol or drug abuse patient.[facility] HospitalIn the event this information is protected by the Federal Confidentiality of Alcohol and Drug Abuse Patient Records regulations: The Federal rules restrict any use of the information to criminally investigate or prosecute any alcohol or drug abuse patient.[facility] HospitalIn the event this information is protected by the Federal Confidentiality of Alcohol and Drug Abuse Patient Records regulations: The Federal rules restrict any use of the information to criminally investigate or prosecute any alcohol or drug abuse patient.[facility] HospitalIn the event this information is protected by the Federal Confidentiality of Alcohol and Drug Abuse Patient Records regulations: The Federal rules restrict any use of the information to criminally investigate or prosecute any alcohol or drug abuse patient.[facility] HospitalIn the event this information is protected by the Federal Confidentiality of Alcohol and Drug Abuse Patient Records regulations: The Federal rules restrict any use of the information to criminally investigate or prosecute any alcohol or drug abuse patient.[facility] HospitalIn the event this information is protected by the Federal Confidentiality of Alcohol and Drug Abuse Patient Records regulations: The Federal rules restrict any use of the information to criminally investigate or prosecute any alcohol or drug abuse patient.[facility] HospitalIn the event this information is protected by the Federal Confidentiality of Alcohol and Drug Abuse Patient Records regulations: The Federal rules restrict any use of the information to criminally investigate or prosecute any alcohol or drug abuse patient.[facility] HospitalIn the event this information is protected by the Federal Confidentiality of Alcohol and Drug Abuse Patient Records regulations: The Federal rules restrict any use of the information to criminally investigate or prosecute any alcohol or drug abuse patient.[facility] HospitalIn the event this information is protected by the Federal Confidentiality of Alcohol and Drug Abuse Patient Records regulations: The Federal rules restrict any use of the information to criminally investigate or prosecute any alcohol or drug abuse patient.[facility] HospitalIn the event this information is protected by the Federal Confidentiality of Alcohol and Drug Abuse Patient Records regulations: The Federal rules restrict any use of the information to criminally investigate or prosecute any alcohol or drug abuse patient.[facility] HospitalIn the event this information is protected by the Federal Confidentiality of Alcohol and Drug Abuse Patient Records regulations: The Federal rules restrict any use of the information to criminally investigate or prosecute any alcohol or drug abuse patient.[facility] HospitalIn the event this information is protected by the Federal Confidentiality of Alcohol and Drug Abuse Patient Records regulations: The Federal rules restrict any use of the information to criminally investigate or prosecute any alcohol or drug abuse patient.[facility] HospitalIn the event this information is protected by the Federal Confidentiality of Alcohol and Drug Abuse Patient Records regulations: The Federal rules restrict any use of the information to criminally investigate or prosecute any alcohol or drug abuse patient.[facility] HospitalIn the event this information is protected by the Federal Confidentiality of Alcohol and Drug Abuse Patient Records regulations: The Federal rules restrict any use of the information to criminally investigate or prosecute any alcohol or drug abuse patient.[facility] HospitalIn the event this information is protected by the Federal Confidentiality of Alcohol and Drug Abuse Patient Records regulations: The Federal rules restrict any use of the information to criminally investigate or prosecute any alcohol or drug abuse patient.[facility] HospitalIn the event this information is protected by the Federal Confidentiality of Alcohol and Drug Abuse Patient Records regulations: The Federal rules restrict any use of the information to criminally investigate or prosecute any alcohol or drug abuse patient.[facility] HospitalIn the event this information is protected by the Federal Confidentiality of Alcohol and Drug Abuse Patient Records regulations: The Federal rules restrict any use of the information to criminally investigate or prosecute any alcohol or drug abuse patient.[facility] HospitalIn the event this information is protected by the Federal Confidentiality of Alcohol and Drug Abuse Patient Records regulations: The Federal rules restrict any use of the information to criminally investigate or prosecute any alcohol or drug abuse patient.[facility] HospitalIn the event this information is protected by the Federal Confidentiality of Alcohol and Drug Abuse Patient Records regulations: The Federal rules restrict any use of the information to criminally investigate or prosecute any alcohol or drug abuse patient.[facility] HospitalIn the event this information is protected by the Federal Confidentiality of Alcohol and Drug Abuse Patient Records regulations: The Federal rules restrict any use of the information to criminally investigate or prosecute any alcohol or drug abuse patient.[facility] HospitalIn the event this information is protected by the Federal Confidentiality of Alcohol and Drug Abuse Patient Records regulations: The Federal rules restrict any use of the information to criminally investigate or prosecute any alcohol or drug abuse patient.[facility] HospitalIn the event this information is protected by the Federal Confidentiality of Alcohol and Drug Abuse Patient Records regulations: The Federal rules restrict any use of the information to criminally investigate or prosecute any alcohol or drug abuse patient.[facility] HospitalIn the event this information is protected by the Federal Confidentiality of Alcohol and Drug Abuse Patient Records regulations: The Federal rules restrict any use of the information to criminally investigate or prosecute any alcohol or drug abuse patient.[facility] HospitalIn the event this information is protected by the Federal Confidentiality of Alcohol and Drug Abuse Patient Records regulations: The Federal rules restrict any use of the information to criminally investigate or prosecute any alcohol or drug abuse patient.[facility] HospitalIn the event this information is protected by the Federal Confidentiality of Alcohol and Drug Abuse Patient Records regulations: The Federal rules restrict any use of the information to criminally investigate or prosecute any alcohol or drug abuse patient.[facility] HospitalIn the event this information is protected by the Federal Confidentiality of Alcohol and Drug Abuse Patient Records regulations: The Federal rules restrict any use of the information to criminally investigate or prosecute any alcohol or drug abuse patient.[facility] HospitalIn the event this information is protected by the Federal Confidentiality of Alcohol and Drug Abuse Patient Records regulations: The Federal rules restrict any use of the information to criminally investigate or prosecute any alcohol or drug abuse patient.[facility] HospitalIn the event this information is protected by the Federal Confidentiality of Alcohol and Drug Abuse Patient Records regulations: The Federal rules restrict any use of the information to criminally investigate or prosecute any alcohol or drug abuse patient.[facility] HospitalIn the event this information is protected by the Federal Confidentiality of Alcohol and Drug Abuse Patient Records regulations: The Federal rules restrict any use of the information to criminally investigate or prosecute any alcohol or drug abuse patient.[facility] HospitalIn the event this information is protected by the Federal Confidentiality of Alcohol and Drug Abuse Patient Records regulations: The Federal rules restrict any use of the information to criminally investigate or prosecute any alcohol or drug abuse patient.[facility] HospitalIn the event this information is protected by the Federal Confidentiality of Alcohol and Drug Abuse Patient Records regulations: The Federal rules restrict any use of the information to criminally investigate or prosecute any alcohol or drug abuse patient.[facility] HospitalIn the event this information is protected by the Federal Confidentiality of Alcohol and Drug Abuse Patient Records regulations: The Federal rules restrict any use of the information to criminally investigate or prosecute any alcohol or drug abuse patient.[facility] HospitalIn the event this information is protected by the Federal Confidentiality of Alcohol and Drug Abuse Patient Records regulations: The Federal rules restrict any use of the information to criminally investigate or prosecute any alcohol or drug abuse patient.[facility] HospitalIn the event this information is protected by the Federal Confidentiality of Alcohol and Drug Abuse Patient Records regulations: The Federal rules restrict any use of the information to criminally investigate or prosecute any alcohol or drug abuse patient.[facility] HospitalIn the event this information is protected by the Federal Confidentiality of Alcohol and Drug Abuse Patient Records regulations: The Federal rules restrict any use of the information to criminally investigate or prosecute any alcohol or drug abuse patient.[facility] HospitalIn the event this information is protected by the Federal Confidentiality of Alcohol and Drug Abuse Patient Records regulations: The Federal rules restrict any use of the information to criminally investigate or prosecute any alcohol or drug abuse patient.[facility] HospitalIn the event this information is protected by the Federal Confidentiality of Alcohol and Drug Abuse Patient Records regulations: The Federal rules restrict any use of the information to criminally investigate or prosecute any alcohol or drug abuse patient.[facility] HospitalIn the event this information is protected by the Federal Confidentiality of Alcohol and Drug Abuse Patient Records regulations: The Federal rules restrict any use of the information to criminally investigate or prosecute any alcohol or drug abuse patient.[facility] HospitalIn the event this information is protected by the Federal Confidentiality of Alcohol and Drug Abuse Patient Records regulations: The Federal rules restrict any use of the information to criminally investigate or prosecute any alcohol or drug abuse patient.[facility] HospitalIn the event this information is protected by the Federal Confidentiality of Alcohol and Drug Abuse Patient Records regulations: The Federal rules restrict any use of the information to criminally investigate or prosecute any alcohol or drug abuse patient.[facility] HospitalIn the event this information is protected by the Federal Confidentiality of Alcohol and Drug Abuse Patient Records regulations: The Federal rules restrict any use of the information to criminally investigate or prosecute any alcohol or drug abuse patient.[facility] HospitalIn the event this information is protected by the Federal Confidentiality of Alcohol and Drug Abuse Patient Records regulations: The Federal rules restrict any use of the information to criminally investigate or prosecute any alcohol or drug abuse patient.[facility] HospitalIn the event this information is protected by the Federal Confidentiality of Alcohol and Drug Abuse Patient Records regulations: The Federal rules restrict any use of the information to criminally investigate or prosecute any alcohol or drug abuse patient.[facility] HospitalIn the event this information is protected by the Federal Confidentiality of Alcohol and Drug Abuse Patient Records regulations: The Federal rules restrict any use of the information to criminally investigate or prosecute any alcohol or drug abuse patient.[facility] HospitalIn the event this information is protected by the Federal Confidentiality of Alcohol and Drug Abuse Patient Records regulations: The Federal rules restrict any use of the information to criminally investigate or prosecute any alcohol or drug abuse patient.[facility] HospitalIn the event this information is protected by the Federal Confidentiality of Alcohol and Drug Abuse Patient Records regulations: The Federal rules restrict any use of the information to criminally investigate or prosecute any alcohol or drug abuse patient.[facility] HospitalIn the event this information is protected by the Federal Confidentiality of Alcohol and Drug Abuse Patient Records regulations: The Federal rules restrict any use of the information to criminally investigate or prosecute any alcohol or drug abuse patient.[facility] HospitalIn the event this information is protected by the Federal Confidentiality of Alcohol and Drug Abuse Patient Records regulations: The Federal rules restrict any use of the information to criminally investigate or prosecute any alcohol or drug abuse patient.[facility] HospitalIn the event this information is protected by the Federal Confidentiality of Alcohol and Drug Abuse Patient Records regulations: The Federal rules restrict any use of the information to criminally investigate or prosecute any alcohol or drug abuse patient.[facility] HospitalIn the event this information is protected by the Federal Confidentiality of Alcohol and Drug Abuse Patient Records regulations: The Federal rules restrict any use of the information to criminally investigate or prosecute any alcohol or drug abuse patient.[facility] HospitalIn the event this information is protected by the Federal Confidentiality of Alcohol and Drug Abuse Patient Records regulations: The Federal rules restrict any use of the information to criminally investigate or prosecute any alcohol or drug abuse patient.[facility] HospitalIn the event this information is protected by the Federal Confidentiality of Alcohol and Drug Abuse Patient Records regulations: The Federal rules restrict any use of the information to criminally investigate or prosecute any alcohol or drug abuse patient.[facility] HospitalIn the event this information is protected by the Federal Confidentiality of Alcohol and Drug Abuse Patient Records regulations: The Federal rules restrict any use of the information to criminally investigate or prosecute any alcohol or drug abuse patient.[facility] HospitalIn the event this information is protected by the Federal Confidentiality of Alcohol and Drug Abuse Patient Records regulations: The Federal rules restrict any use of the information to criminally investigate or prosecute any alcohol or drug abuse patient.[facility] HospitalIn the event this information is protected by the Federal Confidentiality of Alcohol and Drug Abuse Patient Records regulations: The Federal rules restrict any use of the information to criminally investigate or prosecute any alcohol or drug abuse patient.[facility] HospitalIn the event this information is protected by the Federal Confidentiality of Alcohol and Drug Abuse Patient Records regulations: The Federal rules restrict any use of the information to criminally investigate or prosecute any alcohol or drug abuse patient.[facility] HospitalIn the event this information is protected by the Federal Confidentiality of Alcohol and Drug Abuse Patient Records regulations: The Federal rules restrict any use of the information to criminally investigate or prosecute any alcohol or drug abuse patient.[facility] HospitalIn the event this information is protected by the Federal Confidentiality of Alcohol and Drug Abuse Patient Records regulations: The Federal rules restrict any use of the information to criminally investigate or prosecute any alcohol or drug abuse patient.[facility] HospitalIn the event this information is protected by the Federal Confidentiality of Alcohol and Drug Abuse Patient Records regulations: The Federal rules restrict any use of the information to criminally investigate or prosecute any alcohol or drug abuse patient.[facility] HospitalIn the event this information is protected by the Federal Confidentiality of Alcohol and Drug Abuse Patient Records regulations: The Federal rules restrict any use of the information to criminally investigate or prosecute any alcohol or drug abuse patient.[facility] HospitalIn the event this information is protected by the Federal Confidentiality of Alcohol and Drug Abuse Patient Records regulations: The Federal rules restrict any use of the information to criminally investigate or prosecute any alcohol or drug abuse patient.[facility] HospitalIn the event this information is protected by the Federal Confidentiality of Alcohol and Drug Abuse Patient Records regulations: The Federal rules restrict any use of the information to criminally investigate or prosecute any alcohol or drug abuse patient.[facility] HospitalIn the event this information is protected by the Federal Confidentiality of Alcohol and Drug Abuse Patient Records regulations: The Federal rules restrict any use of the information to criminally investigate or prosecute any alcohol or drug abuse patient.[facility] HospitalIn the event this information is protected by the Federal Confidentiality of Alcohol and Drug Abuse Patient Records regulations: The Federal rules restrict any use of the information to criminally investigate or prosecute any alcohol or drug abuse patient.[facility] HospitalIn the event this information is protected by the Federal Confidentiality of Alcohol and Drug Abuse Patient Records regulations: The Federal rules restrict any use of the information to criminally investigate or prosecute any alcohol or drug abuse patient.[facility] HospitalIn the event this information is protected by the Federal Confidentiality of Alcohol and Drug Abuse Patient Records regulations: The Federal rules restrict any use of the information to criminally investigate or prosecute any alcohol or drug abuse patient.[facility] HospitalIn the event this information is protected by the Federal Confidentiality of Alcohol and Drug Abuse Patient Records regulations: The Federal rules restrict any use of the information to criminally investigate or prosecute any alcohol or drug abuse patient.[facility] HospitalIn the event this information is protected by the Federal Confidentiality of Alcohol and Drug Abuse Patient Records regulations: The Federal rules restrict any use of the information to criminally investigate or prosecute any alcohol or drug abuse patient.[facility] HospitalIn the event this information is protected by the Federal Confidentiality of Alcohol and Drug Abuse Patient Records regulations: The Federal rules restrict any use of the information to criminally investigate or prosecute any alcohol or drug abuse patient.[facility] HospitalIn the event this information is protected by the Federal Confidentiality of Alcohol and Drug Abuse Patient Records regulations: The Federal rules restrict any use of the information to criminally investigate or prosecute any alcohol or drug abuse patient.[facility] HospitalIn the event this information is protected by the Federal Confidentiality of Alcohol and Drug Abuse Patient Records regulations: The Federal rules restrict any use of the information to criminally investigate or prosecute any alcohol or drug abuse patient.[facility] HospitalIn the event this information is protected by the Federal Confidentiality of Alcohol and Drug Abuse Patient Records regulations: The Federal rules restrict any use of the information to criminally investigate or prosecute any alcohol or drug abuse patient.[facility] HospitalIn the event this information is protected by the Federal Confidentiality of Alcohol and Drug Abuse Patient Records regulations: The Federal rules restrict any use of the information to criminally investigate or prosecute any alcohol or drug abuse patient.[facility] HospitalIn the event this information is protected by the Federal Confidentiality of Alcohol and Drug Abuse Patient Records regulations: The Federal rules restrict any use of the information to criminally investigate or prosecute any alcohol or drug abuse patient.[facility] HospitalIn the event this information is protected by the Federal Confidentiality of Alcohol and Drug Abuse Patient Records regulations: The Federal rules restrict any use of the information to criminally investigate or prosecute any alcohol or drug abuse patient.[facility] HospitalIn the event this information is protected by the Federal Confidentiality of Alcohol and Drug Abuse Patient Records regulations: The Federal rules restrict any use of the information to criminally investigate or prosecute any alcohol or drug abuse patient.[facility] HospitalIn the event this information is protected by the Federal Confidentiality of Alcohol and Drug Abuse Patient Records regulations: The Federal rules restrict any use of the information to criminally investigate or prosecute any alcohol or drug abuse patient.[facility] Reason for Visit (unrecogniz ed section [...] NEW HIGH MDM 60-74 MINUTES Caryn Lowery APRN.INSTRUMENT REPAIRER HELPER [address] [place] [address] Referral ID Status Reason Start Date Expiration Date V isits Requested Visits Authorized [id number] Closed PCP Requested Referral 04/08/2022 04/08/2023 1 [...] THERAPY MEDICAL NUTRITION ASSMT&IVNTJ INDIV EACH 15 [place] MEDICAL NUTRITION ASSMT&IVNTJ INDIV EACH 15 [place] MEDICAL NUTRITION ASSMT&IVNTJ INDIV EACH 15 [place] MEDICAL NUTRITION ASSMT&IVNTJ INDIV EACH 15 [place] Caryn Lowery APRN.INSTRUMENT REPAIRER HELPER [address] [place] [address] Referral ID Status Reason Start Date Expiration Date V isits Requested Visits Authorized [id number] Closed PCP Requested Referral 11/23/2022 11/23/2023 1 1 Reason Comments Recheck Adipex follow up Reason Comments Recheck 2 month follow up Reason Comments Radiology US Specialty Diagnoses / Procedures Referred By Contac t Referred To Contact [facility] Diagnoses RUQ pain Nausea Epigastric pain Diarrhea, unspecified type Procedures US ABD RT UPPER QUADRANT US ABDOMINAL REAL TIME W/IMAGE LIMITED Older, Caryn, PHARMACEUTICAL PROCESS ENGINEER.INSTRUMENT REPAIRER HELPER [address] [place] [address] [place] [id number] Referral ID Status Reason Start Date Expiration Date V isits Requested Visits Authorized [id number] Closed Auto-Generate d Referral 03/25/2022 04/24/2023 1 [...] congestion, SO B Reason Comments Faxed to [facility] Pulmonary Reason Comments Lab Orders Reason Comments Results Reason Comments Radiology CT Specialty Diagnoses / Procedures Referred By Contac t Referred To Contact CT IMAGING Diagnoses Shortness of breath Cough, unspecified type Wheezing Low O2 saturation Subacute cough Procedures CT CHEST W IVCON DIAGNOSTIC COMPUTED TOMOGRAPHY THORAX W/CONTRAST Older, Caryn, 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 PROCESS ENGINEER.INSTRUMENT REPAIRER HELPER [address] [place] [address] [facility] [place] [address] Referral ID Status Reason Start Date Expiration Date V isits Requested Visits Authorized [id number] Closed Auto-Generate d Referral 02/18/2024 03/19/2024 1 [...] Elle Boone MD [address] [place] [address] Res[address] Wing [address] [place], [place] [id number] Referral ID Status Reason Start Date Expiration Date V isits Requested Visits Authorized [id number] Closed Auto-Generate d Referral 05/23/2024 06/22/2025 1 1 Specialty Diagnoses / Procedures Referred By Contac t Referred To Contact [facility] Diagnoses Cough, unspecified type Procedures SPIROMETRY WITH DILATOR IF OBSTRUCTED BRNCDILAT RSPSE SPMTRY PRE&POST-BRNCDILAT ADMN Elle Boone MD [address] [place] [address] [address]piratory Wing [address] [place], [place] [id number] Referral ID Status Reason Start Date Expiration Date V isits Requested Visits Authorized [id number] Closed Auto-Generate d Referral 05/23/2024 06/22/2025 1 [...] Care Teams (unrecognized sec tion and content) Developmental Mathematics Instructor Relationship Specialty Start Date End Date Babar Phillip MD [address] [place] [address] PCP - General Internal Medicine 12/17/16 Deanne Patterson MD [address] [place] [address] [address] [place], [place] 500405 Pulmonary Disease 02/07/21 Developmental Mathematics Instructor Relationship Specialty Start Date End Date Babar Phillip MD [address] [place], [place] 318241 PCP - General Internal Medicine 12/17/16 Deanne Patterson MD [address] [place] [address] [address] [place] [address] Pulmonary Disease 02/07/21 Developmental Mathematics Instructor Relationship Specialty Start Date End Date Babar Phillip MD [address] [place] [address] PCP - General Internal Medicine 12/17/16 Deanne Patterson MD [address] [place] [address] [address] [place] [address] Pulmonary Disease 02/07/21 Developmental Mathematics Instructor Relationship Specialty Start Date End Date Babar Phillip MD [address] [place] [address] PCP - General Internal Medicine 12/17/16 Deanne Patterson MD [address] [facility] [address] [place] [address] Pulmonary Disease 02/07/21 Developmental Mathematics Instructor Relationship Specialty Start Date End Date Babar Phillip MD [address] [facility] [place] [address] PCP - General Internal Medicine 12/17/16 Deanne Patterson MD [address] [facility] [address] [place] [address] Pulmonary Disease 02/07/21 Developmental Mathematics Instructor Relationship Specialty Start Date End Date Babar Phillip MD [address] [facility] [place] [address] PCP - General Internal Medicine 12/17/16 Deanne Patterson MD [address] [facility] [address] [place] [address] Pulmonary Disease 02/07/21 Developmental Mathematics Instructor Relationship Specialty Start Date End Date Babar Phillip MD [address] [facility] [place] [address] PCP - General Internal Medicine 12/17/16 Deanne Patterson MD [address] [facility] [address] [place] [address] Pulmonary Disease 02/07/21 Developmental Mathematics Instructor Relationship Specialty Start Date End Date Babar Phillip MD [address] [facility] [place] [address] PCP - General Internal Medicine 12/17/16 Deanne Patterson MD [address] [facility] [address] [place] [address] Pulmonary Disease 02/07/21 Developmental Mathematics Instructor Relationship Specialty Start Date End Date Babar Phillip MD [address] [facility] [place] [address] PCP - General Internal Medicine 12/17/16 [place] [address] [place] [address] [address] [place] [address] Pulmonary Disease 02/07/21 Developmental Mathematics Instructor Relationship Specialty Start Date End Date Babar Phillip MD [address] [facility] [place] [address] PCP - General Internal Medicine 12/17/16 Deanne Patterson MD [address] [facility] [address] [place] [address] Pulmonary Disease 02/07/21 Developmental Mathematics Instructor Relationship Specialty Start Date End Date Babar Phillip MD [address] [facility] [place] [address] PCP - General Internal Medicine 12/17/16 Deanne Patterson MD [address] [place] [address] [address] [place] [address] Pulmonary Disease 02/07/21 Developmental Mathematics Instructor Relationship Specialty Start Date End Date Babar Phillip MD [address] [facility] [place] [address] PCP - General Internal Medicine 12/17/16 Deanne Patterson MD [address] [facility] [address] [place] [address] Pulmonary Disease 02/07/21 Developmental Mathematics Instructor Relationship Specialty Start Date End Date Babar Phillip MD [address] [facility] [place] [address] PCP - General Internal Medicine 12/17/16 Deanne Patterson MD [address] [place] [address] [address] [place] [address] Pulmonary Disease 02/07/21 Developmental Mathematics Instructor Relationship Specialty Start Date End Date Babar Phillip MD [address] [facility] [place] [address] PCP - General Internal Medicine 12/17/16 Deanne Patterson MD [address] [facility] [address] [place] [address] Pulmonary Disease 02/07/21 Developmental Mathematics Instructor Relationship Specialty Start Date End Date Babar Phillip MD [address] [facility] [place] [address] PCP - General Internal Medicine 12/17/16 [place] [address] [place] [address] [address] [place] [address] Pulmonary Disease 02/07/21 Developmental Mathematics Instructor Relationship Specialty Start Date End Date Babar Phillip MD [address] [place] [address] PCP - General Internal Medicine 12/17/16 Deanne Patterson MD [address] [facility] [address] [place] [address] Pulmonary Disease 02/07/21 Developmental Mathematics Instructor Relationship Specialty Start Date End Date Babar Phillip MD [address] [facility] [place] [address] PCP - General Internal Medicine 12/17/16 [place] [address] [place] [address] [address] [place] [address] Pulmonary Disease 02/07/21 Developmental Mathematics Instructor Relationship Specialty Start Date End Date Babar Phillip MD [address] [facility] [place] [address] PCP - General Internal Medicine 12/17/16 [place] [address] [place] [address] [address] [place] [address] Pulmonary Disease 02/07/21 Developmental Mathematics Instructor Relationship Specialty Start Date End Date Babar Phillip MD [address] [facility] [place] [address] PCP - General Internal Medicine 12/17/16 Deanne Patterson MD [address] [place] [address] [address] [place], [place] 2[address] Pulmonary Disease 02/07/21 Team Status: Active Member Role Status Dates Dr. Babar Phillip MD Family Provider Active Dr. Babar Phillip MD Primary Care Provider Active Team Status: Inactive Member Role Status Dates Dr. Babar Phillip MD Primary Care Provider, Referring Provider Active Coco Regalado DESULFURIZER HAND, DESULFURIZER HAND-C Attending Provider Active Team Status: Inactive Member Role Status Dates Dr. Babar Phillip MD Primary Care Provider Active Dr. Steve Tirado MD Attending Provider, Referring Provider Active Developmental Mathematics Instructor Relationship Specialty Start Date End Date Babar Phillip MD [address] [facility] [place] [address] PCP - General Internal Medicine 12/17/16 Deanne Patterson MD [address] [place] [address] [address] [place], [place] 6[address]15 Pulmonary Disease 02/07/21 Developmental Mathematics Instructor Relationship Specialty Start Date End Date Babar Phillip MD [address] [facility] [place] [address] PCP - General Internal Medicine 12/17/16 Deanne Patterson MD [address] [place] [address] [address] [place] [address] Pulmonary Disease 02/07/21 Developmental Mathematics Instructor Relationship Specialty Start Date End Date Babar Phillip MD [address] [place], [place] 202271 PCP - General Internal Medicine 12/17/16 Deanne Patterson MD 1945 [facility] [address] [place], [place] 589455 Pulmonary Disease 02/07/21 Developmental Mathematics Instructor Relationship Specialty Start Date End Date Babar Phillip MD [address] [place], [place] 580301 PCP - General Internal Medicine 12/17/16 Deanne Patterson MD [address] [place] [address] 475625 Pulmonary Disease 02/07/21 Developmental Mathematics Instructor Relationship Specialty Start Date End Date Babar Phillip MD [address] [place], [place] 950511 PCP - General Internal Medicine 12/17/16 Deanne Patterson MD [address] [place] [address] [id number] Pulmonary Disease 02/07/21 Developmental Mathematics Instructor Relationship Specialty Start Date End Date Babar Phillip MD [address] [place], [place] 132651 PCP - General Internal Medicine 12/17/16 Deanne Patterson MD [address] [address] Pulmonary Disease 02/07/21 Developmental Mathematics Instructor Relationship Specialty Start Date End Date Babar Phillip MD [address] [place], [place] 059331 PCP - General Internal Medicine 12/17/16 Deanne Patterson MD 1945 [facility] [address] [place] [address] Pulmonary Disease 02/07/21 Developmental Mathematics Instructor Relationship Specialty Start Date End Date Babar Phillip MD [address] [place] [address] PCP - General Internal Medicine 12/17/16 Deanne Patterson MD [address] 985925 Pulmonary Disease 02/07/21 Developmental Mathematics Instructor Relationship Specialty Start Date End Date Babar Phillip MD [address] [place], [place] 987921 PCP - General Internal Medicine 12/17/16 Deanne Patterson MD [address] 8688[address] Pulmonary Disease 02/07/21 Developmental Mathematics Instructor Relationship Specialty Start Date End Date Babar Phillip MD [address] [place] [address] PCP - General Internal Medicine 12/17/16 Deanne Patterson MD 1945 [facility] [address] [place] [address] Pulmonary Disease 02/07/21 Developmental Mathematics Instructor Relationship Specialty Start Date End Date Babar Phillip MD [address] [place] [address] PCP - General Internal Medicine 12/17/16 Deanne Patterson MD [address] [place] [address] [address] [place] [address] Pulmonary Disease 02/07/21 Team Status: Inactive Member Role Status Dates Dr. Babar Phillip MD Primary Care Provider, Referring Provider Active Dr. Kamron Cobb MD Attending Provider Active Team Status: Inactive Member Role Status Dates Dr. Babar Phillip MD Primary Care Provider, Referring Provider Active Dr. Akin Gary DO Attending Provider Active Developmental Mathematics Instructor Relationship Specialty Start Date End Date Babar Phillip MD [address] [place] [address] PCP - General Internal Medicine 12/17/16 Deanne Patterson MD 1945 [facility] [address] [place] [address] Pulmonary Disease 02/07/21 Developmental Mathematics Instructor Relationship Specialty Start Date End Date Babar Phillip MD [address] [place] [address] PCP - General Internal Medicine 12/17/16 Deanne Patterson MD [address] [place] [address] [address] [place] [address] Pulmonary Disease 02/07/21 Developmental Mathematics Instructor Relationship Specialty Start Date End Date Babar Phillip MD [address] [place], [place] 124421 PCP - General Internal Medicine 12/17/16 [place] [address] [place] [address] [address] [place] [address] Pulmonary Disease 02/07/21 Developmental Mathematics Instructor Relationship Specialty Start Date End Date Babar hPillip MD [address] [place], [place] 333151 PCP - General Internal Medicine 12/17/16 Deanne Patterson MD [address] [facility] [address] [place], [place] 012545 Pulmonary Disease 02/07/21 Team Status: Inactive Member Role Status Dates Dr. Babar Phillip MD Primary Care Provider Active Dr. Kamron Cobb MD Attending Provider, Referring Pr ovider Active Developmental Mathematics Instructor Relationship Specialty Start Date End Date Babar Phillip MD [address] [place], [place] 755701 PCP - General Internal Medicine 12/17/16 Deanne Patterson MD 1945 [facility] [address] [place], [place] 785645 Pulmonary Disease 02/07/21 Developmental Mathematics Instructor Relationship Specialty Start Date End Date Babar Phillip MD [address] [place], [place] 977961 PCP - General Internal Medicine 12/17/16 Deanne Patterson MD 1945 [facility] [address] [place], [place] 336425 Pulmonary Disease 02/07/21 Developmental Mathematics Instructor Relationship Specialty Start Date End Date Babar Phillip MD [address] [place], [place] 603581 PCP - General Internal Medicine 12/17/16 Deanne Patterson MD [address] [facility] [address] [place], [place] 299375 Pulmonary Disease 02/07/21 Developmental Mathematics Instructor Relationship Specialty Start Date End Date Babar Phillip MD [address] [place], [place] 077681 PCP - General Internal Medicine 12/17/16 Deanne Patterson MD [address] [facility] [address] [place], [place] 536355 Pulmonary Disease 02/07/21 Developmental Mathematics Instructor Relationship Specialty Start Date End Date Babar Phillip MD [address] [place], [place] 400431 PCP - General Internal Medicine 12/17/16 Deanne Patterson MD [address] [facility] [address] [place], [place] 447995 Pulmonary Disease 02/07/21 Developmental Mathematics Instructor Relationship Specialty Start Date End Date Babar Phillip MD [address] [place], [place] 205631 PCP - General Internal Medicine 12/17/16 Deanne Patterson MD [address] [facility] [address] [place], [place] 051825 Pulmonary Disease 02/07/21 Developmental Mathematics Instructor Relationship Specialty Start Date End Date Babar Phillip MD [address] [place], [place] 524851 PCP - General Internal Medicine 12/17/16 Deanne Patterson MD [address] [facility] [address] [place], [place] 272755 Pulmonary Disease 02/07/21 Developmental Mathematics Instructor Relationship Specialty Start Date End Date Babar Phillip MD [address] [place], [place] 445231 PCP - General Internal Medicine 12/17/16 Deanne Patterson MD [address] [facility] [address] [place], [place] 623145 Pulmonary Disease 02/07/21 Developmental Mathematics Instructor Relationship Specialty Start Date End Date Babar Phillip MD [address] [place], [place] 975541 PCP - General Internal Medicine 12/17/16 Deanne Patterson MD 1945 [facility] [address] [place], [place] 77800685 Pulmonary Disease 02/07/21 Developmental Mathematics Instructor Relationship Specialty Start Date End Date Bbaar Phillip MD [address] [place], [place] 491521 PCP - General Internal Medicine 12/17/16 Deanne Patterson MD [address] [facility] [address] [place], [place] 371715 Pulmonary Disease 02/07/21 Developmental Mathematics Instructor Relationship Specialty Start Date End Date Babar Phillip MD [address] [place], [place] 001421 PCP - General Internal Medicine 12/17/16 Deanne Patterson MD [address] [facility] [address] [place] [address] Pulmonary Disease 02/07/21 Developmental Mathematics Instructor Relationship Specialty Start Date End Date Babar Phillip MD [address] [place], [place] 219171 PCP - General Internal Medicine 12/17/16 Deanne Patterson MD [address] [facility] [address] [place], [place] 233795 Pulmonary Disease 02/07/21 Developmental Mathematics Instructor Relationship Specialty Start Date End Date Babar Phillip MD [address] [place], [place] 510751 PCP - General Internal Medicine 12/17/16 Deanne Patterson MD 1945 [facility] [address] [place], [place] 916805 Pulmonary Disease 02/07/21 Developmental Mathematics Instructor Relationship Specialty Start Date End Date Babar Phillip MD [address] [place], [place] 443381 PCP - General Internal Medicine 12/17/16 Deanne Patterson MD 1945 [facility] [address] [place] [address] Pulmonary Disease 02/07/21 Developmental Mathematics Instructor Relationship Specialty Start Date End Date Babar Phillip MD [address] [place], [place] 432811 PCP - General Internal Medicine 12/17/16 Deanne Patterson MD [address] [facility] [address] [place] [address] Pulmonary Disease 02/07/21 Developmental Mathematics Instructor Relationship Specialty Start Date End Date Babar Phillip MD [address] [place] [address] PCP - General Internal Medicine 12/17/16 Deanne Patterson MD [address] [facility] [address] [place] [address] Pulmonary Disease 02/07/21 Developmental Mathematics Instructor Relationship Specialty Start Date End Date Babar Phillip MD [address] [place], [place] 752681 PCP - General Internal Medicine 12/17/16 Deanne Patterson MD 1945 [facility] [address] [place] [address] Pulmonary Disease 02/07/21 Developmental Mathematics Instructor Relationship Specialty Start Date End Date Babar Phillip MD [address] [place], [place] 681171 PCP - General Internal Medicine 12/17/16 Deanne Patterson MD 1945 [facility] [address] [place] [address] Pulmonary Disease 02/07/21 Developmental Mathematics Instructor Relationship Specialty Start Date End Date Babar Phillip MD [address] [place], [place] 501051 PCP - General Internal Medicine 12/17/16 Deanne Patterson MD 1945 [facility] [address] [place] [address] Pulmonary Disease 02/07/21 Developmental Mathematics Instructor Relationship Specialty Start Date End Date Babar Phillip MD [address] [place], [place] 694571 PCP - General Internal Medicine 12/17/16 Deanne Patterson MD [address] [facility] [address] [place] [address] Pulmonary Disease 02/07/21 Developmental Mathematics Instructor Relationship Specialty Start Date End Date Babar Phillip MD [address] [place], [place] 199491 PCP - General Internal Medicine 12/17/16 Deanne Patterson MD [address] [facility] [address] [place] [address] Pulmonary Disease 02/07/21 Developmental Mathematics Instructor Relationship Specialty Start Date End Date Babar Phillip MD [address] [place], [place] 794191 PCP - General Internal Medicine 12/17/16 Deanne Patterson MD [address] [facility] [address] [place] [address] Pulmonary Disease 02/07/21 Developmental Mathematics Instructor Relationship Specialty Start Date End Date Babar Phillip MD [address] [place] [address] PCP - General Internal Medicine 12/17/16 Deanne Patterson MD 1945 [facility] [address] [place] [address] Pulmonary Disease 02/07/21 Developmental Mathematics Instructor Relationship Specialty Start Date End Date Babar Phillip MD [address] [place] [address] PCP - General Internal Medicine 12/17/16 Deanne Patterson MD [address] [place] [address] [address] [place] [address] Pulmonary Disease 02/07/21 Developmental Mathematics Instructor Relationship Specialty Start Date End Date Babar Phillip MD [address] [place], [place] 114181 PCP - General Internal Medicine 12/17/16 Deanne Patterson MD [address] [place] [address] [address] [place] [address] Pulmonary Disease 02/07/21 Developmental Mathematics Instructor Relationship Specialty Start Date End Date Babar Phillip MD [address] [place], [place] 088651 PCP - General Internal Medicine 12/17/16 Deanne Patterson MD [address] [place] [address] [address] [place] [address] Pulmonary Disease 02/07/21 Developmental Mathematics Instructor Relationship Specialty Start Date End Date Babar Phillip MD [address] [place], [place] 623441 PCP - General Internal Medicine 12/17/16 Deanne Patterson MD [address] [place] [address] [address] [place], [place] 318445 Pulmonary Disease 02/07/21 Developmental Mathematics Instructor Relationship Specialty Start Date End Date Babar Phillip MD [address] [place], [place] 759361 PCP - General Internal Medicine 12/17/16 Deanne Patterson MD [address] [facility] [address] [place], [place] 289875 Pulmonary Disease 02/07/21 Developmental Mathematics Instructor Relationship Specialty Start Date End Date Babar Phillip MD [address] [place], [place] 012561 PCP - General Internal Medicine 12/17/16 Deanne Patterson MD [address] [facility] [address] [place] [address] Pulmonary Disease 02/07/21 Developmental Mathematics Instructor Relationship Specialty Start Date End Date Babar Phillip MD [address] [place], [place] 123791 PCP - General Internal Medicine 12/17/16 Deanne Patterson MD [address] [facility] [address] [place], [place] 205275 Pulmonary Disease 02/07/21 Developmental Mathematics Instructor Relationship Specialty Start Date End Date Babar Phillip MD [address] [place], [place] 449511 PCP - General Internal Medicine 12/17/16 Deanne Patterson MD [address] [facility] [address] [place] [address] Pulmonary Disease 02/07/21 Developmental Mathematics Instructor Relationship Specialty Start Date End Date Babar Phillip MD [address] [place], [place] 998391 PCP - General Internal Medicine 12/17/16 Deanne Patterson MD [address] [facility] [address] [place], [place] 740215 Pulmonary Disease 02/07/21 Developmental Mathematics Instructor Relationship Specialty Start Date End Date Babar Phillip MD [address] [place], [place] 870411 PCP - General Internal Medicine 12/17/16 Deanne Patterson MD [address] [facility] [address] [place], [place] 463305 Pulmonary Disease 02/07/21 Developmental Mathematics Instructor Relationship Specialty Start Date End Date Babar Phillip MD [address] [place] [address] PCP - General Internal Medicine 12/17/16 Developmental Mathematics Instructor Relationship Specialty Start Date End Date Babar Phillip MD [address] [place] [address] PCP - General Internal Medicine 12/17/16 Developmental Mathematics Instructor Relationship Specialty Start Date End Date Babar Phillip MD [address] [place], [place] 928381 PCP - General Internal Medicine 12/17/16 Deanne Patterson MD [address] [facility] [address] [place] [address] Pulmonary Disease 02/07/21 Developmental Mathematics Instructor Relationship Specialty Start Date End Date Babar Phillip MD [address] [place], [place] 277781 PCP - General Internal Medicine 12/17/16 Deanne Patterson MD [address] [facility] [address] [place] [address] Pulmonary Disease 02/07/21 Developmental Mathematics Instructor Relationship Specialty Start Date End Date Babar Phillip MD [address] [place], [place] 419661 PCP - General Internal Medicine 12/17/16 Deanne Patterson MD [address] [facility] [address] [place] [address] Pulmonary Disease 02/07/21 Developmental Mathematics Instructor Relationship Specialty Start Date End Date Babar Phillip MD [address] [place], [place] 004041 PCP - General Internal Medicine 12/17/16 Deanne Patterson MD [address] [facility] [address] [place] [address] Pulmonary Disease 02/07/21 Developmental Mathematics Instructor Relationship Specialty Start Date End Date Babar Phillip MD [address] [place], [place] 453971 PCP - General Internal Medicine 12/17/16 Deanne Patterson MD [address] [facility] [address] [place], [place] 150665 Pulmonary Disease 02/07/21 Developmental Mathematics Instructor Relationship Specialty Start Date End Date Babar Phillip MD [address] [place] [address] PCP - General Internal Medicine 12/17/16 Deanne Patterson MD [address] [facility] [address] [place], [place] 375905 Pulmonary Disease 02/07/21 Lani Mendez PA-C [address] [place] [address] [facility] 04/23/24 Caryn Lowery APRN.INSTRUMENT REPAIRER HELPER [address] [place] [address] [facility] 04/23/24 Zeinab Garcia PA-C [address] [place] [address] [facility] 04/23/24 Developmental Mathematics Instructor Relationship Specialty Start Date End Date Babar Phillip MD [address] [place] [address] PCP - General Internal Medicine 12/17/16 Deanne Patterson MD 1945 [facility] [address] [place] [address] Pulmonary Disease 02/07/21 Lani Mendez PA-C [address] [place], [place] 2625068 [phone] [facility] 04/23/24 Caryn Lowery APRN.INSTRUMENT REPAIRER HELPER [address] [place] [address] [facility] 04/23/24 Zeinab Garcia PA-C [address] [place] [address] [facility] 04/23/24 Developmental Mathematics Instructor Relationship Specialty Start Date End Date Babar Phillip MD [address] [place] [address] PCP - General Internal Medicine 12/17/16 Deanne Patterson MD [address] [facility] [address] [place], [place] 668615 Pulmonary Disease 02/07/21 Lani Mendez PA-C [address] [place] [address] [facility] 04/23/24 Sebastián, LILI Rubin.INSTRUMENT REPAIRER HELPER [address] [place] [address] [facility] 04/23/24 Zeinab Garcia PA-C [address] [place], [place] 578491 [facility] 04/23/24 Developmental Mathematics Instructor Relationship Specialty Start Date End Date Babar Phillip MD [address] [place], [place] 853041 PCP - General Internal Medicine 12/17/16 Deanne Patterson MD [address] [facility] [address] [place], [place] 786325 Pulmonary Disease 02/07/21 Lani Mendez PA-C [address] [place] [address] [facility] 04/23/24 Caryn Lowery APRN.INSTRUMENT REPAIRER HELPER [address] [place] [address] [facility] 04/23/24 Zeinab Garcia PA-C [address] [place] [address] [facility] 04/23/24 Developmental Mathematics Instructor Relationship Specialty Start Date End Date Babar Phillip MD [address] [place] [address] PCP - General Internal Medicine 12/17/16 Deanne Patterson MD [facility] [address] [place], [place] 058815 Pulmonary Disease 02/07/21 Lani Mendez PA-C [address] [place] [address] [facility] 04/23/24 Caryn Lowery APRN.INSTRUMENT REPAIRER HELPER [address] [place] [address] [facility] 04/23/24 Zeinab Garcia PA-C [address] [place] [address] [facility] 04/23/24 Developmental Mathematics Instructor Relationship Specialty Start Date End Date Babar Phillip MD [address] [place] [address] PCP - General Internal Medicine 12/17/16 Deanne Patterson MD 1945 [facility] [address] [place] [address] Pulmonary Disease 02/07/21 Lani Mendez PA-C [address] [place] [address] [facility] 04/23/24 Caryn Lowery APRN.INSTRUMENT REPAIRER HELPER [address] [place] [address] [facility] 04/23/24 Zeinab Garcia PA-C [address] [place] [address] [facility] 04/23/24 Developmental Mathematics Instructor Relationship Specialty Start Date End Date Babar Phillip MD [address] [place] [address] PCP - General Internal Medicine 12/17/16 Deanne Patterson MD 1945 [facility] [address] [place] [address] Pulmonary Disease 02/07/21 Lani Mendez PA-C [address] [place] [address] [facility] 04/23/24 Caryn Lowery APRN.INSTRUMENT REPAIRER HELPER [address] [place], [place] [address] [facility] 04/23/24 Zeinab Garcia PA-C [address] [place], [place] [address] [facility] 04/23/24 Developmental Mathematics Instructor Relationship Specialty Start Date End Date Babar Phillip MD [address] [place], [place] [id number] PCP - General Internal Medicine 12/17/16 Deanne Patterson MD 1945 [facility] [address] [place], [place] [id number] Pulmonary Disease 02/07/21 Lani Mendez PA-C [address] [place] [address] [facility] 04/23/24 Caryn Lowery APRN.INSTRUMENT REPAIRER HELPER [address] [place], [place] [address] [facility] 04/23/24 Zeinab Garcia PA-C [address] [place] [address] [facility] 04/23/24 Developmental Mathematics Instructor Relationship Specialty Start Date End Date Babar Phillip MD [address] [place] [address] PCP - General Internal Medicine 12/17/16 Deanne Patterson MD [address] [facility] [address] [place], [place] [address] Pulmonary Disease 02/07/21 Lani Mendez PA-C [address] [place] [address] [facility] 04/23/24 Caryn Lowery APRN.INSTRUMENT REPAIRER HELPER [address] [place] [address] [facility] 04/23/24 Zeinab Garcia PA-C [address] [place] [address] [facility] 04/23/24 Developmental Mathematics Instructor Relationship Specialty Start Date End Date Babar Phillip MD [address] [place] [address] PCP - General Internal Medicine 12/17/16 Deanne Patterson MD [address] [place] [address] [place] [address] Pulmonary Disease 02/07/21 Lani Mendez PA-C [address] [place] [address] [facility] 04/23/24 08/06/24 Caryn Lowery APRN.INSTRUMENT REPAIRER HELPER [address] [place] [address] [facility] 04/23/24 Zeinab Garcia PA-C [address] [place] [address] [facility] 04/23/24 08/06/24 Developmental Mathematics Instructor Relationship Specialty Start Date End Date Babar Phillip MD [address] [place] [address] PCP - General Internal Medicine 12/17/16 Deanne Patterson MD [address] [facility] [address] [place], [place] [address] Pulmonary Disease 02/07/21 Older, LILI Rubin.INSTRUMENT REPAIRER HELPER [address] [place], [place] [id number] [facility] 04/23/24 Developmental Mathematics Instructor Relationship Specialty Start Date End Date Babar Phillip MD [address] [place], [place] [address] PCP - General Internal Medicine 12/17/16 Deanne Patterson MD [address] [place] [address] [address] [place], [place] [address] Pulmonary Disease 02/07/21 Older, LEE RubinN.INSTRUMENT REPAIRER HELPER [address] [place] [address] [facility] 04/23/24 Developmental Mathematics Instructor Relationship Specialty Start Date End Date Babar Phillip MD [address] [place] [address] PCP - General Internal Medicine 12/17/16 Deanne Patterson MD 1945 [facility] [address] [place], [place] [address] Pulmonary Disease 02/07/21 Older, LEE RubinN.INSTRUMENT REPAIRER HELPER [address] [place] [address] [facility] 04/23/24 Developmental Mathematics Instructor Relationship Specialty Start Date End Date Babar Phillip MD [address] [place], [place] [address]206[address] PCP - General Internal Medicine 12/17/16 Deanne Patterson MD [address] [facility] [address] [place], [place] [address] Pulmonary Disease 02/07/21 Older, LEE RubinN.INSTRUMENT REPAIRER HELPER [address] [place], [place] 251458 [phone] [facility] 04/23/24 Developmental Mathematics Instructor Relationship Specialty Start Date End Date Babar Phillip MD [address] [place] [address] PCP - General Internal Medicine 12/17/16 Deanne Patterson MD [address] [facility] [address] [place], [place] [address] Pulmonary Disease 02/07/21 Sebastián, LEE RubinN.INSTRUMENT REPAIRER HELPER [address] [place] [address] [facility] 04/23/24 Developmental Mathematics Instructor Relationship Specialty Start Date End Date Babar Phillip MD [address] [place] [address] PCP - General Internal Medicine 12/17/16 Deanne Patterson MD [address] [facility] [address] [place], [place] [address] Pulmonary Disease 02/07/21 Sebastián, LILI Rubin.INSTRUMENT REPAIRER HELPER [address] [place] [address] [facility] 04/23/24 Developmental Mathematics Instructor Relationship Specialty Start Date End Date Babar Phillip MD [address] [place] [address] PCP - General Internal Medicine 12/17/16 Deanne Patterson MD [address] [facility] [address] [place], [place] [address] Pulmonary Disease 02/07/21 Older, LILI Rubin.INSTRUMENT REPAIRER HELPER [address] [place] [address] [facility] 04/23/24 Developmental Mathematics Instructor Relationship Specialty Start Date End Date Babar Phillip MD [address] [place], [place] 1675[address] [phone] PCP - General Internal Medicine 12/17/16 Deanne Patterson MD 1945 [facility] [address] [place], [place] [address] Pulmonary Disease 02/07/21 Caryn Lowery APRN.INSTRUMENT REPAIRER HELPER [address] [place] [address] [facility] 04/23/24 Developmental Mathematics Instructor Relationship Specialty Start Date End Date Babar Phillip MD [address] [place] [address] PCP - General Internal Medicine 12/17/16 Deanne Patterson MD 6 [facility] [address] [place], [place] [id number] Pulmonary Disease 02/07/21 Older, LEE RubinN.INSTRUMENT REPAIRER HELPER [address] [place], [place] [address] [facility] 04/23/24 Developmental Mathematics Instructor Relationship Specialty Start Date End Date Babar Phillip MD [address] [place], [place] 3370[address] PCP - General Internal Medicine 12/17/16 Deanne Patterson MD 1946 [facility] [address] [place], [place] [id number] Pulmonary Disease 02/07/21 Older, LEE RubinN.INSTRUMENT REPAIRER HELPER [address] [place], [place] [address]50[address] [facility] 04/23/24 Developmental Mathematics Instructor Relationship Specialty Start Date End Date Babar Phillip MD [address] [place], [place] [address] PCP - General Internal Medicine 12/17/16 Deanne Patterson MD [address] [facility] [address] [place], [place] [id number] Pulmonary Disease 02/07/21 Older, Caryn, PHARMACEUTICAL PROCESS ENGINEER.INSTRUMENT REPAIRER HELPER [address] [place], [place] [address] [facility] 04/23/24 Care Team (unrecognized sect ion and content) Care Team Personnel Name: SARAH GORDILLO MD Member Role: Primary Care Physician Address: Address: [address] [place] [address]- Care Team Related Persons Name: KATIE REINOSO [...] BE BASED ON THE PRIMARY CLINICAL RECORDS. [facility] [employer] [facility]. provides no warranty or guarantee of the accuracy or completeness of information in this document.
[2024-12-24 23:21] VITALS: BP 149/72; PULSE 90; RESP 16; TEMP 36.7; O2SAT 98
[2024-12-25] VITALS: BP 96/73; PULSE 87; RESP 16; TEMP 36.7; O2SAT 100
[2024-12-25 00:47] LABS: Hematocrit 44.1 % (37-47); Hemoglobin 13.7 g/dL (12.0-15.0); Immature Granulocytes Count 0.060 X10^3/uL (0.0-0.0); Mean Corp Hgb Conc 31.1 g/dL (32-36); Mean Corpuscular Volume 94.6 fL (81-99); Mean Platelet Vol. 9.1 fl (6.2-12.0); NRBC Flagged by Analyzer 0 % (0-5); Platelet Count 240 K/mm3 (150-450); RBC Distribution Width CV 14.6 % (11.6-14.6); RBC Distribution Width SD 50.8 fl (35.1-43.9); Red Blood Count 4.66 M/mm3 (4.2-5.4); White Blood Count 12.4 K/mm3 (4.4-11.0)
--- NOTE | 2024-12-25 00:48 | EX.ED.DYSGE1 ---
HPI History of Present Illness Chief Complaint: Cellulitis Narrative Narrative: Patient is a 44-year-old female presenting to the emergency department for breast cellulitis. Patient states she first noticed the spot on her left lateral breast on . She followed up with her primary care Wednesday who placed her on doxycycline. She states she has been taking this as prescribed. She states that the area of redness was outlined with a marker and it is now spread beyond that. She states that yesterday she went to [place] ED to be seen and they discharged her. States that today she went to urgent care and they also discharged her there as well. She denies any fever, chills, nausea or vomiting. Denies any fatigue. States she feels normal. Hx of MRSA in her finger she reports. [facility] Medical History History of alcohol abuse Nausea and vomiting Diarrhea Depression Anxiety Thyroid disease Diabetes Arthritis Fatty liver Back pain Nausea Gastric reflux Smoker On home oxygen therapy COPD (chronic obstructive pulmonary disease) Asthma Shortness of breath on exertion Chronic cough History of edema History of echocardiogram History of Holter monitoring History of irregular heartbeat Hypertension History of trigger finger Bronchitis Asthma Acute bronchitis due to human metapneumovirus Acute respiratory failure with hypoxia Morbid obesity with BMI of 50.0-59.9, adult Hypoxemia Mild intermittent asthma Viral bronchitis Home Medications ?Medication ?Instructions ?Recorded ?Last Taken ?Type atorvastatin 10 mg tablet 10 mg PO QHS 05/24/19 Unknown History ipratropium 0.5 mg-albuterol 3 mg 3 ml IH Q6H PRN PRN Sob &/Or 05/24/19 Unknown History (2.5 mg base)/3 mL nebulization Wheezing soln furosemide 40 mg tablet 40 mg PO DAILY #5 tabs 10/03/19 Unknown Rx metoprolol succinate 25 mg 25 mg PO BID 11/02/19 01/04/23 History tablet,extended release 24 hr famotidine 20 mg tablet (Pepcid) 40 mg PO DAILY 11/13/19 01/04/23 History levothyroxine 50 mcg capsule 50 mcg PO DAILY 05/15/21 01/04/23 History omeprazole 20 mg capsule,delayed 20 mg PO QHS 05/01/22 01/04/23 History release lamotrigine 100 mg tablet 200 mg PO QHS 07/31/22 Unknown History potassium chloride 10 mEq 10 meq PO DAILY 07/31/22 Unknown History capsule,extended release cetirizine 10 mg capsule 10 mg PO HS #30 caps 02/12/23 Unknown Rx guaifenesin 1,200 mg tablet, 1,200 mg PO Q12H PRN congestion 04/07/23 Unknown Rx extended release 12 hr #60 tabs albuterol sulfate 90 mcg/actuation 2 puff inhalation Q4H PRN PRN 11/01/23 Unknown Rx aerosol inhaler Asthma #8.5 grams celecoxib 100 mg capsule 100 mg PO QDAY 11/04/23 Unknown History dulaglutide 0.75 mg/0.5 mL 0.75 mg subcut QWEEK 11/04/23 Unknown History subcutaneous pen injector ([facility]) fluticasone furoate 200 1 inh inhalation QDAY #60 ea 11/04/23 Unknown Rx mcg-vilanterol 25 mcg/dose inhalation powder (Breo Ellipta) montelukast 10 mg tablet 10 mg PO DAILY #30 tabs 12/08/23 Unknown Rx doxycycline hyclate 100 mg tablet 100 mg PO BID #20 tabs 01/04/24 Unknown Rx prednisone 10 mg tablet 10 mg PO QDAY #30 tabs 01/04/24 Unknown Rx voriconazole 200 mg tablet 200 mg PO Q12H #60 tabs 02/25/24 Unknown Rx cephalexin 500 mg capsule 500 mg PO Q6 7 days #28 CAPSULES 12/25/24 Unknown Rx Allergy/AdvReac Type Severity Reaction Status Date / Time celecoxib (From Celebrex) Allergy PT UNSURE Verified 12/24/24 22:17 OF REACTION codeine Allergy Anaphylaxis Verified 12/24/24 22:17 nirmatrelvir (From Paxlovid) Allergy Vomiting Verified 12/24/24 22:17 propoxyphene napsylate (From Allergy Rash Verified 12/24/24 22:17 Darvocet-N) ritonavir (From Paxlovid) Allergy Vomiting Verified 12/24/24 22:17 Sulfa (Sulfonamide Allergy Anaphylaxis Verified 12/24/24 22:17 Antibiotics) amoxicillin AdvReac Other Verified 12/24/24 22:17 Family History Mother Heart disease Father Hypertension Other Arthritis Cervical cancer Depression Surgical History Hx of tubal ligation Hx of thumb surgery H/O elbow surgery History of carpal tunnel surgery Social History Smoking Status: Current every day smoker tobacco type: cigarettes second hand exposure: Yes alcohol intake: current alcohol intake frequency: a few times a month Alcohol type: wine substance use type: marijuana ROS ROS ED ROS Narrative see HPI EXAM Physical Exam Narrative Exam Narrative: Vital signs: Reviewed General: Alert and oriented. No acute distress HEENT: Head is normocephalic and atraumatic, sinuses nontender, pupils equal round and reactive. Nares are patent. Oropharynx and throat exams normal. Neck: Supple without lymphadenopathy nontender Cardiovascular: Regular rate and rhythm, no murmurs. No rubs or gallops. Normal S1 and S2 Respiratory: Clear to auscultation bilaterally. No wheezes, rales, rhonchi Abdominal: Soft and nontender. Normal bowel sounds. No guarding or rebound. Nonsurgical abdomen Extremities: No tenderness. No bruising. Normal range of motion. Normal sensation. Skin: 3 cm area of induration to the left lateral breast with surrounding erythema. No drainage. Neurological: Cranial nerves II through XII are grossly intact. Normal strength and sensation. Normal cerebellar function The rest of the physical exam is unremarkable Const Vital Signs: 12/24/24 22:17 12/24/24 22:21 12/24/24 23:21 Temperature 98.8 F 98.8 F 98.1 F Temperature Source Oral Oral Oral Pulse Rate 102 H 102 H 90 Respiratory Rate 20 H 20 H 16 Blood Pressure 168/94 H 168/94 H 149/72 H Blood Pressure Mean 118 118 97 Pulse Ox 98 98 98 Oxygen Delivery Method Room Air Room Air Room Air 12/25/24 00:00 12/25/24 01:00 12/25/24 02:00 Temperature 98.1 F 97.8 F 98.9 F Temperature Source Oral Oral Oral Pulse Rate 87 80 87 Respiratory Rate 16 16 16 Blood Pressure 96/73 108/82 H 133/63 H Blood Pressure Mean 80 90 86 Pulse Ox 100 96 98 Oxygen Delivery Method Room Air Room Air Room Air 12/25/24 02:12 Temperature 99.1 F Temperature Source Pulse Rate 91 Respiratory Rate 16 Blood Pressure 133/63 H Blood Pressure Mean 86 Pulse Ox 99 Oxygen Delivery Method MDM MDM MDM Narrative Medical decision making narrative: Patient is a 44-year-old female presenting to the emergency department for concern of breast infection. Patient was seen and examined. Vitals are stable. Patient resting in bed comfortably no acute distress. Labs were ordered. CBC with mild leukocytosis 12.4 and a normal hemoglobin. Lactates within normal limits. BMP with no significant abnormalities. No signs of sepsis on labs or clinically on exam. On bedside ultrasound there is a clear abscess that is superficial. I did speak with general surgeon, Dr. Reynolds, who recommended aspiration or incision and drainage given the superficial abscess. Informed consent was obtained from the patient. Betadine used prior to the procedure to cleanse the area. 1% lidocaine with epi was injected and a small incision was made with moderate purulent drainage. Dressing was applied. Keflex added on for antibiotic coverage for better staph and strep coverage. She states she has a follow-up appointment with her primary care doctor today and with her general surgeon on Wednesday. Patient discharged from the Emergency Department. I do not feel that the patient's evaluation reveals any acute reason for admission at this time. I instructed them to either follow-up with their primary care physician or promptly return to the Emergency Department for reevaluation should symptoms worsen or new symptoms develop. I explained what symptoms would indicate the need to return to the emergency department. Shared decision making was used. The patient voiced understanding of the treatment plan and is agreeable with it. History & Record Review Discussion w/independent historian: Patient Lab Data Attestation: I reviewed the patient's lab results. Labs: Laboratory Results - last 24 hr 12/25/24 00:37 WBC 12.4 H RBC 4.66 Hgb 13.7 Hct 44.1 MCV 94.6 MCH 29.4 MCHC 31.1 L RDW Std Deviation 50.8 H RDW Coeff of Bernice 14.6 Plt Count 240 MPV 9.1 Immature Gran % (Auto) 0.500 Neut % (Auto) 66.7 Lymph % (Auto) 25.0 Lares % (Auto) 7.0 Eos % (Auto) 0.5 Baso % (Auto) 0.3 Absolute Neuts (auto) 8.3 H Absolute Lymphs (auto) 3.10 Nucleated RBC % 0 Sodium 139 Potassium 3.9 Chloride 102 Carbon Dioxide 25.8 Anion Gap 11 BUN 14 Creatinine 0.78 Estim Creat Clear Calc 126.82 Est GFR (MDRD) Non-Af 95 BUN/Creatinine Ratio 17.3 Glucose 102 H Lactic Acid < 1.0 Calcium 9.5 Discharge Plan Triage Chief Complaint: Cellulitis ED Provider: Dianelys Fenton Dx/Rx/DC Orders Clinical Impression: Abscess of breast, Cellulitis Instructions: ED Abscess Incision And Drainage, ED Cellulitis Prescriptions: New cephalexin 500 mg capsule 500 mg PO Q6 7 Days Qty: 28 0RF No Action metoprolol succinate 25 mg tablet extended release 24 hr 25 mg PO BID furosemide 40 mg tablet 40 mg PO DAILY Qty: 5 0RF famotidine [Pepcid] 20 mg tablet 40 mg PO DAILY levothyroxine 50 mcg capsule 50 mcg PO DAILY omeprazole 20 mg capsule,delayed release(DR/EC) 20 mg PO QHS potassium chloride 10 mEq capsule, extended release 10 meq PO DAILY celecoxib 100 mg capsule 100 mg PO QDAY Trulicity 0.75 mg/0.5 mL pen injector 0.75 mg subcut QWEEK fluticasone furoate-vilanterol [Breo Ellipta] 200-25 mcg/dose blister with device 1 inh inhalation QDAY Qty: 60 6RF Rx Instructions: after inhalation, rinse mouth with water and spit out; do not swallow voriconazole 200 mg tablet 200 mg PO Q12H Qty: 60 1RF Rx Instructions: administer on empty stomach, at least 1 hour before or after meal(s) lamotrigine 100 mg tablet 200 mg PO QHS ipratropium-albuterol 3 ML solution for nebulization 3 ml IH Q6H PRN PRN (Reason: Sob &/Or Wheezing) atorvastatin 10 MG tablet 10 mg PO QHS cetirizine 10 mg capsule 10 mg PO HS Qty: 30 6RF guaifenesin 1,200 mg tablet extended release 12hr 1,200 mg PO Q12H PRN (Reason: congestion) Qty: 60 10RF albuterol sulfate 90 mcg/actuation HFA aerosol inhaler 2 puff inhalation Q4H PRN PRN (Reason: Asthma) Qty: 8.5 6RF montelukast 10 mg tablet 10 mg PO DAILY Qty: 30 6RF prednisone 10 mg tablet 10 mg PO QDAY Qty: 30 0RF Rx Instructions: take 4 tabs for three days, then 3 tabs for three days, then 2 tabs for three days, then 1 tab for 3 days doxycycline hyclate 100 mg tablet 100 mg PO BID Qty: 20 0RF Primary Care Provider: Rhonda Adkins Referrals: Rhonda Adkins MD [Primary Care Provider] - 2 Days Activity Restrictions/Additional Instructions: Take the antibiotic 4 times a day for the next 7 days. Take this in addition to the doxycycline that you are already taking. Please follow the wound care instructions as discussed. If you develop fever, chills, nausea, vomiting, fatigue you need to return to the ED. Follow-up at your appointment tomorrow and Wednesday as planned. Your evaluation in the Emergency Department did not reveal any acute reason for admission. However, I want to emphasize that you may be early in the course of a disease process or illness even if it is not present. For this reason you should follow-up within 24 hours for reevaluation with either your primary care physician or if necessary back here in the Emergency Department. You should return to the Emergency Department immediately if your symptoms worsen or new symptoms develop. Print Language: Latvian Disposition Disposition: Home, Self Care Discharge Date/Time: 12/25/24 02:13
[2024-12-25 01:00] VITALS: BP 108/82; PULSE 80; RESP 16; TEMP 36.6; O2SAT 96
[2024-12-25 01:18] LABS: Anion Gap 11 (5-15); BUN 14 mg/dL (4-19); BUN/Creat Ratio 17.3 RATIO (10-20); Calcium,Total 9.5 mg/dL (7.6-11.0); Carbon Dioxide 25.8 mmol/L (21.0-32.0); Chloride 102 mmol/L (98-108); Estimated Creatinine Clearance 126.82 ml/min (50-250); Glucose 102 mg/dL (70-99); Potassium 3.9 mmol/L (3.3-5.1)
[2024-12-25] MEDS: Lidocaine 2% /Epi 1:100 (20ml) 20 ML VIAL INFILT (01:57)
[2024-12-25 02:00] VITALS: BP 133/63; PULSE 87; RESP 16; TEMP 37.2; O2SAT 98
[2024-12-25 02:12] VITALS: BP 133/63; PULSE 91; RESP 16; TEMP 37.3; O2SAT 99
== END 2024-12-25 02:13 | disposition home or self-care (01) ==
PROVIDERS: Emergency Provider Student in an Organized Health Care Education/Training Program; PCP Internal Medicine; Visit Provider Student in an Organized Health Care Education/Training Program
DX: N61.1 Abscess of the breast and nipple (principal); J44.9 Chronic obstructive pulmonary disease, unspecified; E11.9 Type 2 diabetes mellitus without complications; I10 Essential (primary) hypertension; K21.9 Gastro-esophageal reflux disease without esophagitis; F17.210 Nicotine dependence, cigarettes, uncomplicated; D72.829 Elevated white blood cell count, unspecified
CPT/HCPCS: 10060 ×2; 80048; 83605; 85025; 96374; 99282; A4216

== ENCOUNTER 2024-12-26 15:00 | Inpatient (IN) | payer MEDICAID, SELFPAY ==
[2024-12-26] VITALS (7 sets, daily range): BP systolic 126–163; BP diastolic 76–96; PULSE 79–103; RESP 16–22; TEMP 36.6–37; O2SAT 95–98; BMI 56.4; BMI 56.3
--- NOTE | 2024-12-26 15:52 | US_ITS ---
PROCEDURE: BREAST LIMITED UNILATERAL 12/26/2024 REASON FOR EXAM: F, Age 44 y/o , LEFT BREAST ABSCESS COMPARISON: None. TECHNIQUE: BREAST LIMITED UNILATERAL FINDINGS: Heterogeneous hypoechoic complex fluid collection is noted in the superficial soft tissues of the left breast within the clinical area of redness, 5 cm from nipple, probably abscess formation. US/Breast Limited Unilateral IMPRESSION: The clinical abnormality corresponds to heterogeneous fluid collection measurin g 2.8 x 2.6 x 0.4 cm, probably abscess formation. BI-RADS 3 RECOMMENDATION: Follow-up after treatment. Reading [facility]
--- NOTE | 2024-12-26 16:00 | EDS_ITS ---
HPI History of Present Illness Chief Complaint: Abscess Detail of Chief Complaint: Left breast abscess and cellulitis. Informant: patient Onset/Context/Timing Onset: Days Context: Gradual Onset Timing: Continuous Current Severity: Moderate Maximum Severity: Moderate Narrative Narrative: 44-year-old female history of diabetes. States that she was diagnosed with a left breast abscess recently. Had an I&D in the ER. Was started on antibiotics. She followed up with the [facility] saw a surgeon today referred her back due to worsening cellulitis. Patient denies any fever or chills. No recent hospitalization. Prior similar symptoms: No Recent Illness/Hospitalization: No [facility] Medical History History of alcohol abuse Nausea and vomiting Diarrhea Depression Anxiety Thyroid disease Diabetes Arthritis Fatty liver Back pain Nausea Gastric reflux Smoker On home oxygen therapy COPD (chronic obstructive pulmonary disease) Asthma Shortness of breath on exertion Chronic cough History of edema History of echocardiogram History of Holter monitoring History of irregular heartbeat Hypertension History of trigger finger Bronchitis Asthma Acute bronchitis due to human metapneumovirus Acute respiratory failure with hypoxia Morbid obesity with BMI of 50.0-59.9, adult Hypoxemia Mild intermittent asthma Viral bronchitis Home Medications ?Medication ?Instructions ?Recorded ?Last Taken ?Type atorvastatin 10 mg tablet 10 mg PO QHS 05/24/19 Unknow n History ipratropium 0.5 mg-albuterol 3 mg 3 ml IH Q6H PRN PRN Sob &/Or 05/24/19 Unknown History (2.5 mg base)/3 mL nebulization Wheezing soln furosemide 40 mg tablet 40 mg PO DAILY #5 tabs 10/02 Unknown Rx metoprolol succinate 25 mg 25 mg PO BID 11/02/1901/04 History tablet,extended release 24 hr famotidine 20 mg tablet (Pepcid) 40 mg PO DAILY 01/04/23 History levothyroxine 50 mcg capsule 50 mcg PO DAILY 05/15/21 01/04/23 History omeprazole 20 mg capsule,delayed 20 mg PO QHS 05/01/22 01/04/23 History release lamotrigine 100 mg tablet 200 mg PO QHS 07/31/22 Unkno wn History potassium chloride 10 mEq 10 meq PO DAILY 07/31/22 Unk nown History capsule,extended release cetirizine 10 mg capsule 10 mg PO HS #30 caps 3 Unknown Rx guaifenesin 1,200 mg tablet, 1,200 mg PO Q12H PRN tsering estion 04/07/23 Unknown Rx extended release 12 hr #60 tabs albuterol sulfate 90 mcg/actuation 2 puff inhalation Q 4H PRN PRN 11/01/23 Unknown Rx aerosol inhaler Asthma #8.5 grams celecoxib 100 mg capsule 100 mg PO QDAY 11/04/23 Unkn own History dulaglutide 0.75 mg/0.5 mL 0.75 mg subcut QWEEK Unknown History subcutaneous pen injector (Trulicity) fluticasone furoate 200 1 inh inhalation QDAY #60 ea 11/04/23 Unknown Rx mcg-vilanterol 25 mcg/dose inhalation powder (Breo Ellipta) montelukast 10 mg tablet 10 mg PO DAILY #30 tabs 11/15 09/07 Unknown Rx doxycycline hyclate 100 mg tablet 100 mg PO BID #20 ta bs 01/04/24 Unknown Rx prednisone 10 mg tablet 10 mg PO QDAY #30 tabs 01/03 Unknown Rx voriconazole 200 mg tablet 200 mg PO Q12H #60 tabs 04/09 Unknown Rx cephalexin 500 mg capsule 500 mg PO Q6 7 days #28 CAPS ULES 12/25/24 Unknown Rx Allergy/AdvReac Type Severity Reaction Status Date / Time celecoxib (From Celebrex) Allergy PT UNSURE Verified 12/26/24 16:14 OF REACTION codeine Allergy Anaphylaxis Verified 12/26/24 16:14 nirmatrelvir (From Paxlovid) Allergy Vomiting Verified 12/26/24 16:14 propoxyphene napsylate (From Allergy Rash Verified 12/26/24 16:14 Darvocet-N) ritonavir (From Paxlovid) Allergy Vomiting Verified 12/26/24 16:14 Sulfa (Sulfonamide Allergy Anaphylaxis Verified 12/26/24 16:14 Antibiotics) amoxicillin AdvReac Other Verified 12/26/24 16:14 Family History Mother Heart disease Father Hypertension Other Arthritis Cervical cancer Depression Surgical History Hx of tubal ligation Hx of thumb surgery H/O elbow surgery History of carpal tunnel surgery Social History Smoking Status: Current every day smoker tobacco type: cigarettes second hand exposure: Yes alcohol intake: current alcohol intake frequency: a few times a month Alcohol type: wine substance use type: marijuana ROS ROS ED ROS Narrative Denies recent illness. Constitutional Constitutional ED: Denies chills or fever(s) Eyes Eyes: Denies blurry vision ENT ENT ED: Denies ear pain Cardiovascular Cardiovascular: Denies chest pain Respiratory/Chest Respiratory/Chest: Denies cough or dyspnea Gastrointestinal Gastrointestinal: Denies abdominal pain Genitourinary Genitourinary ED: Denies dysuria or hematuria Musculoskeletal Musculoskeletal: Denies arthralgias or back pain Integumentary Denies abscess or Abrasions Neurologic Neurologic: Denies headache(s) Psychiatric Psychiatric: Denies anxiety or depression Endocrine Endocrinology: Denies cold intolerance Hematologic/Lymphatic Hematologic/Lymphatic: Reports none Allergic/Immunologic Allergic/Immunologic ED: Denies mouth swelling, tongue swelling or urticaria EXAM Physical Exam Narrative Exam Narrative: Well-appearing 44-year-old female vital signs stable afebrile. Sitting upright in bed. No distress. H EENT exam pupils round react light. Moist mutes membranes. Neck nontender no JVD. No lymphadenopathy. Lungs clear to auscultation bilaterally. Heart regular rhythm rate about 100 no murmur. Chest wall her left breast she has cellulitis. There is no axillary lymphadenopathy. There is been a prior I&D around 6:00 on the lower half of the breast below the nipple. She has tenderness and swelling of the left breast. Right breast unremarkable. Abdomen soft nontender. Moving all 4 extremities. Calves are nontender without edema. Neurologic exam the patient is awake and alert. Answering questions following commands. Const Vital Signs: 12/26/24 15:00 12/26/24 16:10 Temperature 98.6 F 98.4 F Temperature Source Oral Oral Pulse Rate 103 H 81 Respiratory Rate 20 H 16 Blood Pressure 163/90 H 136/86 H Blood Pressure Mean 114 102 Pulse Ox 96 97 Oxygen Delivery Method Room Air Room Air Positive well developed; Negative for cachectic, contractures or unkempt General Appearance ED: well developed and NAD; Negative for unkempt, cachectic, contractures, cyanotic or diaphoretic Nutritional Appearance: Negative for cachectic HEENT Reports moist mucous membranes Eyes PERRL and EOMs intact bilaterally General Eye ED: Negative for pale conjunctiva or scleral icterus Neck no lymphadenopathy, supple and no JVD Chest Wall Negative for inspection of chest normal or palpation of chest normal Chest Narrative: Left breast abscess. Cellulitis. Tenderness. Mild swelling. Resp normal respiratory effort and clear to auscultation bilaterally Cardio regular rate, regular rhythm, S1 normal heart sound, S2 normal heart sound and no murmurs GI normal to inspection, nondistended, normoactive bowel sounds, non-tender, non- distended and no masses Auscultation: normoactive bowel sounds Palpation: soft; Negative for tender or guarding Back/Spine no CVA tenderness General Back: Negative for CVA tenderness Cervical Spine: Negative for cervical spine tenderness Thoracic Spine / Upper Back: Negative for thoracic spinal tenderness or paraspinal muscle tenderness Lumbar Spine / Lower Back: Negative for lumbar spinal tenderness Extremity normal to inspection General Extremety ED: Negative for edema or tenderness General Extremity: Negative for edema Neuro oriented x3 and CN's II-XII intact bilaterally Sensorium / Orientation: alert; Negative for orientation impaired, lethargic or stuporous Motor Exam: strength 5/5 throughout Psych mental status grossly normal Appearance: Negative for unkempt Attitude: No agitated Mood & Affect: Negative for depressed Skin No no rashes or lesions noted Skin Narrative: Left breast cellulitis with recent I&D at 6:00 on the breast. Rashes: rashes noted MDM MDM MDM Narrative Medical decision making narrative: 44-year-old female left breast recent I&D on outpatient antibiotics worsening cellulitis sent in for admission and further evaluation and treatment most likely may need further incision and drainage in the OR. I have already spoken to general surgeon on-call who is coming down evaluate the patient prior to admission. History & Record Review Discussion w/independent historian: Patient and Family Additional record(s) reviewed:: Prior inpatient record, Prior outpatient record, Prior ED visit and Prior labs Lab Data Attestation: I reviewed the patient's lab results. Discharge Plan Triage Chief Complaint: Abscess ED Provider: Stalin Segovia Dx/Rx/DC Orders Clinical Impression: Abscess of breast, left, Cellulitis of breast, History of diabetes mellitus Prescriptions: No Action metoprolol succinate 25 mg tablet extended release 24 hr 25 mg PO BID furosemide 40 mg tablet 40 mg PO DAILY Qty: 5 0RF famotidine [Pepcid] 20 mg tablet 40 mg PO DAILY levothyroxine 50 mcg capsule 50 mcg PO DAILY omeprazole 20 mg capsule,delayed release(DR/EC) 20 mg PO QHS potassium chloride 10 mEq capsule, extended release 10 meq PO DAILY celecoxib 100 mg capsule 100 mg PO QDAY Trulicity 0.75 mg/0.5 mL pen injector 0.75 mg subcut QWEEK fluticasone furoate-vilanterol [Breo Ellipta] 200-25 mcg/dose blister with device 1 inh inhalation QDAY Qty: 60 6RF Rx Instructions: after inhalation, rinse mouth with water and spit out; do not swallow voriconazole 200 mg tablet 200 mg PO Q12H Qty: 60 1RF Rx Instructions: administer on empty stomach, at least 1 hour before or after meal(s) lamotrigine 100 mg tablet 200 mg PO QHS ipratropium-albuterol 3 ML solution for nebulization 3 ml IH Q6H PRN PRN (Reason: Sob &/Or Wheezing) atorvastatin 10 MG tablet 10 mg PO QHS cephalexin 500 mg capsule 500 mg PO Q6 7 Days Qty: 28 0RF cetirizine 10 mg capsule 10 mg PO HS Qty: 30 6RF guaifenesin 1,200 mg tablet extended release 12hr 1,200 mg PO Q12H PRN (Reason: congestion) Qty: 60 10RF albuterol sulfate 90 mcg/actuation HFA aerosol inhaler 2 puff inhalation Q4H PRN PRN (Reason: Asthma) Qty: 8.5 6RF montelukast 10 mg tablet 10 mg PO DAILY Qty: 30 6RF prednisone 10 mg tablet 10 mg PO QDAY Qty: 30 0RF Rx Instructions: take 4 tabs for three days, then 3 tabs for three days, then 2 tabs for three days, then 1 tab for 3 days doxycycline hyclate 100 mg tablet 100 mg PO BID Qty: 20 0RF Primary Care Provider: Rhonda Adkins
[2024-12-26 16:23] LABS: Hematocrit 42.6 % (37-47); Hemoglobin 13.3 g/dL (12.0-15.0); Immature Granulocytes Count 0.040 X10^3/uL (0.0-0.0); Mean Corp Hgb Conc 31.2 g/dL (32-36); Mean Corpuscular Volume 95.1 fL (81-99); Mean Platelet Vol. 9.2 fl (6.2-12.0); NRBC Flagged by Analyzer 0 % (0-5); Platelet Count 232 K/mm3 (150-450); RBC Distribution Width CV 14.6 % (11.6-14.6); RBC Distribution Width SD 50.9 fl (35.1-43.9); Red Blood Count 4.48 M/mm3 (4.2-5.4); White Blood Count 9.5 K/mm3 (4.4-11.0)
[2024-12-26] MEDS: Ampicillin/Sulbactam 3 GM in 0.9% Normal Saline (100mL MB+) 100 ML IV (16:46)
[2024-12-26 16:49] LABS: Anion Gap 9 (5-15); BUN 11 mg/dL (4-19); BUN/Creat Ratio 15.5 RATIO (10-20); Calcium,Total 9.2 mg/dL (7.6-11.0); Carbon Dioxide 26.2 mmol/L (21.0-32.0); Chloride 107 mmol/L (98-108); Estimated Creatinine Clearance 133.83 ml/min (50-250); Glucose 98 mg/dL (70-99); Potassium 4.1 mmol/L (3.3-5.1)
--- NOTE | 2024-12-26 17:57 | PCM.HP.STD ---
HPI - General General Date of Admission: 12/26/24 Date of Service: 12/26/24 Chief Complaint: Worsening left breast cellulitis HPI Narrative DARREN REINOSO, is a 44-year-old female with history of COPD, hypothyroidism, EAMON, GERD, diabetes, depression presented to [facility] ED 12/26/2024 due to left breast abscess and cellulitis. She had been seen in the ER and had an I&D 1-2 days ago for left breast abscess in our ED and was started on antibiotics, no cultures able to be obtained at that time. Pt followed up with [facility] and saw Dr. Gonzalez today who noted worsening cellulitis and sent patient to the ED for IV antibiotics and evaluation by surgery for possible further I&D. In the ED temp 98.6, heart rate 103 with a blood pressure 163/90, respirate 20 pulse ox 96% on room air. Breast ultrasound obtained and pending. CBC with normal white blood cell count 9.5 and hemoglobin 13.3. BMP within normal limits. Given the worsening cellulitis patient given Unasyn and general surgeon on-call contacted who will see patient in consultation. Hospitalist contacted for admission for IV antibiotics and Surgical consultation. Patient evaluated bedside. She reports being at [place] ED a couple days ago and was sent home without any workup or treatment, she then ended up coming to [facility] ED and had bedside I&D and was sent home on abx. She reports since that time she has had increasing redness as well as feeling hot and then chills. Has some chronic SOB but has no other acute complaints. [facility] Medical History (Updated 12/26/24 @ 18:11 by Makenna Martinez) Acute bronchitis due to human metapneumovirus Acute respiratory failure with hypoxia Anxiety Arthritis Asthma Asthma Back pain Bronchitis Chronic cough COPD (chronic obstructive pulmonary disease) CPAP (continuous positive airway pressure) dependence Depression Diabetes Diarrhea Fatty liver Gastric reflux GERD (gastroesophageal reflux disease) History of alcohol abuse History of echocardiogram History of edema History of Holter monitoring History of irregular heartbeat History of trigger finger Hx of substance abuse Hypertension Hypothyroidism Hypoxemia Mild intermittent asthma Morbid obesity with BMI of 50.0-59.9, adult Nausea Nausea and vomiting On home oxygen therapy Shortness of breath on exertion Sleep apnea Smoker Thyroid disease Viral bronchitis Home Medications ?Medication ?Instructions ?Recorded ?Last Taken ?Type ipratropium 0.5 mg-albuterol 3 mg 3 ml IH Q6H PRN PRN Sob &/Or 05/24/19 Unknown History (2.5 mg base)/3 mL nebulization Wheezing soln furosemide 40 mg tablet 40 mg PO DAILY diruetic #5 tabs 10/03/19 Unknown Rx metoprolol succinate 25 mg 25 mg PO BID heart bp 11/02/19 01/04/23 History tablet,extended release 24 hr famotidine 20 mg tablet (Pepcid) 40 mg PO DAILY gerd 11/13/19 01/04/23 History levothyroxine 50 mcg capsule 50 mcg PO DAILY thyroid 05/15/21 01/04/23 History omeprazole 20 mg capsule,delayed 20 mg PO QHS gerd 05/01/22 01/04/23 History release lamotrigine 100 mg tablet 200 mg PO QHS mood 07/31/22 Unknown History potassium chloride 10 mEq 10 meq PO DAILY supplement 07/31/22 Unknown History capsule,extended release cetirizine 10 mg capsule 10 mg PO HS allergies #30 caps 02/12/23 Unknown Rx albuterol sulfate 90 mcg/actuation 2 puff inhalation Q4H PRN PRN 11/01/23 Unknown Rx aerosol inhaler Asthma #8.5 grams dulaglutide 0.75 mg/0.5 mL 0.75 mg subcut QWEEK blood glucose 11/04/23 Unknown History subcutaneous pen injector ([facility]) Held on 12/26/24. Instructions: infection needs to clear first fluticasone furoate 200 1 inh inhalation QDAY asthma #60 ea 11/04/23 Unknown Rx mcg-vilanterol 25 mcg/dose inhalation powder (Breo Ellipta) montelukast 10 mg tablet 10 mg PO DAILY asthma #30 tabs 12/08/23 Unknown Rx doxycycline hyclate 100 mg tablet 100 mg PO BID #20 tabs 01/04/24 Unknown Rx cephalexin 500 mg capsule 500 mg PO Q6 7 days #28 CAPSULES 12/25/24 Unknown Rx Allergy/AdvReac Type Severity Reaction Status Date / Time celecoxib (From Celebrex) Allergy PT UNSURE Verified 12/26/24 16:14 OF REACTION codeine Allergy Anaphylaxis Verified 12/26/24 16:14 nirmatrelvir (From Paxlovid) Allergy Vomiting Verified 12/26/24 16:14 propoxyphene napsylate (From Allergy Rash Verified 12/26/24 16:14 Darvocet-N) ritonavir (From Paxlovid) Allergy Vomiting Verified 12/26/24 16:14 Sulfa (Sulfonamide Allergy Anaphylaxis Verified 12/26/24 16:14 Antibiotics) amoxicillin AdvReac Other Verified 12/26/24 16:14 Family History Mother Heart disease Father Hypertension Other Arthritis Cervical cancer Depression Surgical History (Updated 12/26/24 @ 18:11 by Makenna Martinez) H/O elbow surgery History of appendectomy History of carpal tunnel surgery Hx of thumb surgery Hx of tubal ligation Social History Smoking Status: Current every day smoker tobacco type: cigarettes second hand exposure: Yes alcohol intake: current alcohol intake frequency: a few times a month Alcohol type: wine substance use type: marijuana ROS ROS Narrative General: Denies fever/chills HENT: Denies headache, denies stuffy nose, denies sore throat EYES: Denies changes in vision Resp: Denies cough, denies shortness of breath Cardiac: Denies chest pain GI: Denies abdominal pain, denies changes in bowel, denies nausea/vomiting : Denies changes in urination Extremity: Denies swelling MSK: Denies weakness Neuro: Denies any numbness/tingling Heme: Denies any bleeding or bruising Skin: Denies rashes Psychiatric: No complaints voiced Vital Signs Vital Signs Vital Signs: 12/26/24 15:00 12/26/24 16:10 12/26/24 17:38 Temperature 98.6 F 98.4 F 98.3 F Temperature Source Oral Oral Oral Pulse Rate 103 H 81 79 Respiratory Rate 20 H 16 16 Blood Pressure 163/90 H 136/86 H 126/96 H Blood Pressure Mean 114 102 106 Pulse Ox 96 97 96 Oxygen Delivery Method Room Air Room Air Room Air Weight Weight: 144.498 kg Body Mass Index (BMI) 56.4 Physical Exam Narrative General: Alert, oriented, no apparent distress HEENT: Atraumatic, normocephalic Eyes: Anicteric, normal conjunctiva, extraocular movements grossly intact Neck: Supple Respiratory: Clear to auscultation bilaterally, normal respiratory effort Cardiovascular: Regular rate and rhythm GI: Soft, nontender, nondistended Extremities: No edema Musculoskeletal: Moving all extremities Neuro: No overt focal neurological deficits Skin: No rashes appreciated Psych: Cooperative Results Lab / Micro Data 12/26/24 16:16 12/26/24 16:16 Labs: Laboratory Results - last 24 hr 12/26/24 16:16: WBC 9.5, RBC 4.48, Hgb 13.3, Hct 42.6, MCV 95.1, MCH 29.7, MCHC 31.2 L, RDW Std Deviation 50.9 H, RDW Coeff of Bernice 14.6, Plt Count 232, MPV 9.2, Immature Gran % (Auto) 0.400, Neut % (Auto) 63.4, Lymph % (Auto) 27.1, Ceiba % (Auto) 7.8, Eos % (Auto) 0.9, Baso % (Auto) 0.4, Absolute Neuts (auto) 6.0, Absolute Lymphs (auto) 2.57, Nucleated RBC % 0, Sodium 142, Potassium 4.1, Chloride 107, Carbon Dioxide 26.2, Anion Gap 9, BUN 11, Creatinine 0.74, Estim Creat Clear Calc 133.83, Est GFR (MDRD) Non-Af 102, BUN/Creatinine Ratio 15.5, Glucose 98, Calcium 9.2 Assessment & Plan Assessment/Plan (1) Abscess of breast, left: PLAN: Plan # Worsening cellulitis of left breast -Failed outpatient treatment -IV antibiotics, 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 at time of admission -Complicates treatment, prognosis, outcomes -Recommend weight loss and lifestyle changes #Tobacco use -Advise cessation -Nicotine replacement available if desired #DVT ppx: SCDs Madiha Coronel MD Charges/Coding Visit Charges Inpatient E&M: 19204 Init Hosp L2
[2024-12-26] MEDS: 0.9% Saline Lock 10 ML Syringe IV ×2 (20:16→22:13)
[2024-12-26] MEDS: Vancomycin HCl 2,000 MG in 0.9% Normal Saline (500mL Bag) 500 ML 250 MG IV (20:16)
--- NOTE | 2024-12-26 20:30 | PCM.RX.CS ---
Consult Antibiotic Management Pharmacy has been consulted to manage selected antibiotic: Vancomycin Type of Intervention Type of Consult: New start Suspected Infection Suspected Infection: Skin/Soft tissue Labs Labs: Sodium 142 mmol/L (133-145) 12/26/24 16:16 Potassium 4.1 mmol/L (3.3-5.1) 12/26/24 16:16 Chloride 107 mmol/L (98-108) 12/26/24 16:16 Carbon Dioxide 26.2 mmol/L (21.0-32.0) 12/26/24 16:16 Anion Gap 9 (5-15) 12/26/24 16:16 BUN 11 mg/dL (4-19) 12/26/24 16:16 Creatinine 0.74 mg/dL (0.70-1.20) 12/26/24 16:16 Est GFR (MDRD) Non-Af 102 (>60) 12/26/24 16:16 BUN/Creatinine Ratio 15.5 RATIO (10-20) 12/26/24 16:16 Glucose 98 mg/dL (70-99) 12/26/24 16:16 Dosing Weight Weight used for dosin.3 kg Estimated Creatinine Clearance Estimated Creatinine Clearance: 134 ML/MIN Goal Trough Goal Trough: 10-15 mcg/mL Pharmacy Plan for Drug Dosing Pharmacy Plan for Drug Dosing: Give initial dose of 2000mg IV x1, then continue with 1750mg IV q12h per [facility] dosing chart. Check a trough before the 4th overall dose. Pharmacy Service will continue to monitor and adjust dosing as required. Follow-Up Labs Follow-Up Labs: Trough: Vancomycin Date/Time Labs Ordered Labs to be done on [date and time ordered]: 12/28/24 9567
--- OUTSIDE RECORDS SUMMARY | 2024-12-26 21:18 | XMS RPT_ITS | CCD ---
Author Organization [facility] Care Team Providers Care Telecommunicator Name Role Phone Babar Phillip MD Primary Care Provider Yesenia LUTZ, Deanne Unavailable RAND LUTZ, DR SMITH Primary Care Physician Babar Phillip MD Primary Care Provider Yesenia LUTZ, Deanne Unavailable ARAVIND ROQUE Attending Unavailable Dr. Babar Phillip Primary Care Provider Dr. Babar Phillip Referring Provider Fabricio INFORMATION SYSTEMS SECURITY MANAGER, INFORMATION SYSTEMS SECURITY MANAGER-C Coco Attending Provider [phone] Babar Phillip MD Primary Care Provider Dr. Babar Phillip Primary Care Provider Kenji, Dr. Ellis Referring Provider Friend, Dr. Gerardo Attending Provider Dr. Kamron Cobb Attending Provider DR BABAR PHILLIP MD Primary Care Physician Dr. Babar Phillip Primary Care Provider Dr. Babar Phillip Referring Provider Dr. Babar Phillip Primary Care Provider Dr. Babar Phillip Referring Provider Dr. Kamron Cobb Attending Provider Babar Phillip MD Primary Care Provider CHELSIE MORALES MD Attending Unavail able DR BABAR PHILLIP MD Primary Care Unavailabl mikaela NATION DO, DR DANIEL Martin Attending Unavailable KENJI LUTZ, DR BABAR Marx Primary Care Unavailwellington GUEVARA MD, KANWAL Attending Unavailable KENJI LUTZ, DR BABAR Marx Primary Care Unavailabl e GANTA, BABAR Primary Care Unavailable Denbow PA-C, Lani L Unavailable 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, Caryn Unavailable Bogner PA-C, Zeinab Unavailable Denbow PA-C, Lani L Unavailable [phone] Bogner PA-C, Zeinab Unavailable Kenji LUTZ, Dr. Ellis Primary Care Provider Eliceo LUTZ, Dr. Ivory Emergency Provider Unavailab staci PHILLIP MD, DR BABAR Marx Primary Care Unavailwellington NGUYEN MD, DAVID Felix Attending Unavailable JESÚS HERRERA DO Attending Unavailable KENJI LUTZ, DR BABAR Marx Primary Care Unavailabl Dianeyls Elam Attending Unavailable Ganta, Babar Primary Care Unavailable Yoseph Peña Attending Unavailable Ganta, Babar Primary Care Unavailable Ganta, Babar Primary Care Unavailable Provider, Ed Physician Attending Unavailab le Ganta, Babar Primary Care Unavailable Ganta, Babar Referring Unavailable Regalado INFORMATION SYSTEMS SECURITY MANAGER, Coco Attending Unavailable Ganta, Babar Primary Care Unavailable Regalado INFORMATION SYSTEMS SECURITY MANAGER, Coco Attending Unavailable Regalado INFORMATION SYSTEMS SECURITY MANAGER, Coco Referring Unavailable GANTA, BABAR Primary Care Unavailable OLDER, CARYN Attending Unavailable GANTA, BABAR Primary Care Unavailable OLDER, CARYN Attending Unavailable GANTA, BABAR Primary Care Unavailable OLDER, CARYN Referring Unavailable GANTA, BABAR Primary Care Unavailable CHARIS [...] Attending Unavailable GANTA, BABAR Primary Care Unavailable JANIE VINSON Referring Unavailable GANTA, BABAR Primary Care Unavailable OLDER, CARYN Attending Unavailable GANTA, BABAR Primary Care Unavailable SWANK, YOLANDA Referring Unavailable YULI YO Attending Unavailable GANTA, BABAR Primary Care Unavailable OLDER, CARYN Referring Unavailable GANTA, BABAR Primary Care Unavailable OLDER, CARYN Referring Unavailable GANTA, BABAR Primary Care Unavailable OLDER, CARYN Referring Unavailable GANTA, BABAR Primary Care Unavailable GANTA, BABAR Primary Care Unavailable GANTA, BABAR Primary Care Unavailable GANTA, BABAR Primary Care Unavailable OLDER, CARYN Attending Unavailable GANTA, BABAR Primary Care Unavailable BROWN, ELLE Referring Unavailable GANTA, BABAR Primary Care Unavailable OLDER, CARYN Referring Unavailable GANTA, BABAR Primary Care Unavailable OLDER, CARYN Referring Unavailable BROWN, ELLE Attending Unavailable GANTA, BABAR Primary Care Unavailable OLDER, CARYN Attending Unavailable GANTA, BABAR Primary Care Unavailable GANTA, BABAR Primary Care Unavailable OLDER, CARYN Referring Unavailable GANTA, BABAR Primary Care Unavailable OLDER, CARYN Attending Unavailable GANTA, BABAR Primary Care Unavailable OLDER, CARYN Attending Unavailable GANTA, BABAR Primary Care Unavailable OLDER, CARYN Attending Unavailable GANTA, BABAR Primary Care Unavailable OLDER, CARYN Referring Unavailable SWANK, YOLANDA Attending Unavailable GANTA, BABAR Primary Care Unavailable Allergies Allergy Classification Reported Allergen(s) Allergy Type Date of Onset Reaction(s) Facility Opioid Agonists (6 sources) Codeine Drug Allergy 5 Rash, Unknown [facility] Work Phone: Penicillins (antibiotic) (3 sources) Amoxicillin Drug Allergy 5 Other: See Comments [facility] Sulfonamides (antibiotic) (3 sources) Sulfonamides (Antibiotic) Drug Allergy 5 [facility] (20 sources) Amoxicillin; Translations: [amoxicillin] Drug Allergy 5 Other: See Comments [facility] Comment on above: YEAST INFECTIONS (20 sources) Codeine; Translations: [codeine] Drug Allergy 5 Anaphylaxis [facility] Work Phone: (20 sources) Sulfonamides (Antibiotic); Translations: [sulfa drugs] Propensity to adverse reactions 5 [facility] Work Phone: (20 sources) Propoxyphene N-Acetaminophen; Translations: [PROPOXYPHENE N-ACETAMINOPHEN] Propensity to adverse reactions 7 [facility] Work Phone: (5 sources) Penicillin; Translations: [penicillins] Drug Allergy [facility] (20 sources) Propoxyphene; Translations: [PROPOXYPHENE] Drug Allergy 9 Rash, Unknown [facility] (7 sources) Propoxyphene; Translations: [propoxyphene napsylate] Drug Allergy 3 Rash [facility] (6 sources) Sulfonamides (Antibiotic) Allergy to substance 3 Anaphylaxis [facility] (2 sources) Ritonavir Drug Allergy 3 Vomiting [facility] (3 sources) nirmatrelvir; Translations: [nirmatrelvir] Allergy to substance 3 Vomiting [facility] (4 sources) Sulfonamide; Translations: [sulfa drugs] Drug allergy [facility] (1 source) Penicillin; Translations: [penicillins] Drug Allergy [facility] (1 source) celecoxib Drug Allergy 5 PT UNSURE OF REACTION [facility] (1 source) Amoxicillin Drug Allergy 5 [facility] (1 source) celecoxib Drug Allergy 5 [facility] (1 source) Codeine Drug Allergy 5 [facility] (1 source) Ritonavir Drug Allergy 5 [facility] (1 source) Sulfonamides (Antibiotic) Drug allergy (disorder) 5 [facility] Medications Current Medications Medication Drug Class(es) Dates Sig (Normalized) Sig (Original) [id number] 200 actuat albuterol 0.09 mg/actuat metered dose inhaler (20 sources) beta2-Adrenergic Agonist Start: 01-13-2024 take 2.5 mg by inhalation every four hours as needed albuterol (PROVENTIL) 2.5 mg /3 mL (0.083 %) nebulizer solution Use 3 mL via nebulizer every 4 hours as needed for wheezing/shortnes s of breath. Use over 5-15minutes. 90 mL 3 01/13/2024 Active Start: 03-12-2021 End: 11-01-2023 Albuterol Sulfate 90 mcg/act uation HFA aerosol inhaler Active 2 NMA INHALATION EVERY 4 HOURS NEEDED as needed for Asthma 8.5 6 November 01, 2023 3:26pm Start: 11-04-2020 End: 10-17-2024 take 2 puff(s) by inhalation every four hours as needed for wheezing albuterol HFA (VENTOLIN HFA) 90 mcg/actuation inhaler Inhale 2 puffs as instructed every 4 hours as needed for wheezing/shortness of breath. 18 g 2 10/17/2024 Active Start: 05-24-2019 End: 03-12-2021 Albuterol Sulfate 8.5 GM HFA aerosol inhaler Discontinued 2 NMA INHALATION EVERY 4 HOURS NEEDED as needed for Asthma May 24, 2019 7:45pm March 12, 2021 11:27am Start: 05-01-2019 End: 05-24-2019 Albuterol Sulfate 90 mcg/act uation HFA aerosol inhaler Discontinued 2 NMA INHALATION EVERY 4 HOURS NEEDED as needed for Asthma 18 6 May 01, 2019 2:29pm May 24, 2019 7:45pm Start: 05-01-2019 End: 04-15-2023 take 1 puff(s) by inhalation every four hours as needed Albuterol Sulfate Discontinued 2 PUFF INHALATION EVERY 4 HOURS NEEDED 8.5 March 12, 2021 10:27am October 27, 2021 1:56pm Start: 08-17-2017 End: 05-01-2019 Albuterol Sulfate 1 INHALER inhaler Discontinued 2 NMA INHALATION EVERY 4 HOURS NEEDED as needed for Asthma August 17, 2017 12:00am May 01, 2019 2:30pm Start: 08-17-2017 End: 05-01-2019 take 1 puff(s) [...] inhalat ion every six hours as needed for wheezing Ipratropium-Albuterol 3 ML solution for nebulization Active 3 mL IH EVERY 6 HOURS NEEDED as needed for Sob &/Or Wheezing May 24, 2019 1:00am Comment on above: INHALE 3 ML INSTR [...] 01/21/2024 01/31/2024 Active Start: 03-20-2020 End: 03-27-2020 Amoxicillin-Pot Clavulanate (Augmentin) 875-125 mg tablet Discontinued 1 {tbl} PO TWICE A DAY March 20, 2020 1:00am March 27, 2020 2:59pm Start: 09-13-2019 End: 09-25-2019 Amoxicillin-Pot Clavulanate (Augmentin) 875-125 mg tablet Discontinued 1 {tbl} PO TWICE A DAY September 13, 2019 12:00am September 25, 2019 10:47am Start: 09-08-2018 End: 11-01-2018 Amoxicillin-Pot Clavulanate (Augmentin) 875-125 mg tablet Discontinued 1 {tbl} PO TWICE A DAY September 08, 2018 12:00am November 01, 2018 1:13pm atorvastatin 10 mg oral tablet (20 sources) HMG-CoA Reductase Inhibitor Start: 05-24-2019 End: 04-01-2024 take 1 tablet by mouth at bedtime Atorvastatin 10 MG tablet Active 10 mg PO AT BEDTIME May 24, 2019 1:00am Start: 10-13-2016 take 1 dose by mouth once daily atorvastatin Oral, qDay Start Date: 10/13/16 Status: Ordered Medication Dispense Status: Completed Total Allowed Fills: 1 Fills Dispensed: 0 Start: 10-13-2016 atorvastatin O ral, qDay Start Date: 10/13/16 Status: Ordered Repeat number: 1 Start: 10-13-2016 atorvastatin O ral, qDay Start Date: 10/13/16 Status: Ordered Comment on above: Take 1 tablet by [facility] once daily. azithromycin 250 mg oral tablet (15 sources) Macrolide Antimicrobial Start: 10-14-19 End: 10-19-19 take 2 tablets by mouth once daily, [...] 01/13/2024 01/18/2024 Active Start: 10-02-2020 End: 11-13-2020 take 2-5 tablets by mouth once daily Azithromycin 250 mg tablet Discontinued 0 PO .COMPLEX 6 0 October 02, 2020 12:00am November 13, 2020 1:20pm take 500 mg today (day 1), then 250 mg for 4 days (days 2-5) PO Start: 10-02-2020 End: 11-13-2020 Azithromycin Discontinued 0 PO .COMPLEX 6 October 01, 2020 11:00pm November 13, 2020 12:20pm take 500 mg today (day 1), then 250 mg for 4 days (days 2-5) PO Start: 07-03-2019 End: 09-13-2019 take 1 tablet by mouth once daily Azithromycin 250 mg tablet Discontinued 250 mg PO daily 6 0 July 03, 2019 1:00am September 13, 2019 7:48am Blood Pressure Kit-Extra Large kit (20 sources) [...] Blood-Glucose Meter monitoring kit (1 source) Start: 05-22-19 End: 05-23-19 Blood-Glucose Meter monitoring kit Glucose Meter of Choice - Kit - Dx: Type 2 DM - Controlled E11.9 Insulin No 1 Each 0 05/22/2022 05/23/2022 Active Comment on above: Glucose Meter of Cho ice - Kit - Dx: Type 2 DM - Controlled E11.9 Insulin No celecoxib 100 mg oral capsule (20 sources) Nonsteroidal Anti-inflammatory Drug Start: 10-20-19 End: 01-21-20 take 1 capsule by mouth once daily Celecoxib 100 mg capsule Active 100 mg PO daily November 04, 2023 12:00am cephalexin 500 mg oral capsule (1 source) Cephalosporin Antibacterial Start: 12-26-19 take 1 capsule by mouth every six hours Cephalexin 500 mg capsule Active 500 mg PO EVERY 6 HOURS 28 7 0 December 25, 2024 12:00am cetirizine hydrochloride 10 mg oral tablet (20 sources) Histamine-1 Receptor Antagonist Start: 05-13-20 End: 02-16-20 take 1 tablet by mouth once daily cetirizine (ZYRTEC) 10 mg tablet Take 1 tablet by mouth once daily. 90 tablet 3 02/16/2024 Active Start: 01-05-2020 End: 02-12-2023 take 1 capsule by mouth at bedtime Cetirizine 10 mg capsule Discontinued 10 mg PO BEDTIME 30 6 August 04, 2022 9:05am February 12, 2023 12:45pm Comment on above: Take 1 tablet by jose eduardo once daily for 7 days. Take 1 tablet by jose eduardo once daily. 12 hr dextromethorphan hydrobromide 30 mg / guaiFENesin 600 mg extended release oral tablet (1 source) Uncompetitive D-yydtdm-O-aspartate Receptor Antagonist, Sigma-1 Agonist Start: End: take 1 tablet by mouth twice daily as needed for cough dextromethorphan- guaiFENesin (MUCINEX DM) 30-600 mg per tablet Indications: URI, acute Take 1 tablet by mouth two times a day as needed for cough for up to 7 days. 14 tablet 07/13/2024 07/20/2024 Active diclofenac sodium 0.01 mg/mg topical gel (20 sources) Nonsteroidal Anti-inflammatory Drug Start: 022 End: apply 2 g topically every twelve hours as needed diclofenac (VOLTAREN) 1 % topical gel Apply 2 g to affected area twice daily as needed. 50 g 5 09/25/2022 Active Comment on above: Apply 2 g to affecte d area twice daily as needed. dicyclomine hydrochloride 20 mg oral tablet (6 sources) Anticholinergic Start: End: 04-19-2 023 take 1 tablet by mouth every six [...] above: Take 1 tablet by jose eduardo four times daily as needed for up [...] days. 14 capsule 11/20/2024 11/27/2024 Active Start: 01-04-2024 End: 04-07-2024 take 1 tablet by mouth twice daily doxycycline (VIBRA-TABS) 100 mg tablet Indications: Skin infection Take 1 tablet by mouth two times a day for 7 days. 14 tablet 03/31/2024 04/07/2024 Active Start: 05-07-2023 End: 11-04-2023 take 1 tablet by mouth twice daily doxycycline (VIBRA-TABS) 100 mg tablet Take 1 tablet by mouth two times a day for 7 days. 14 tablet 0 06/30/2023 07/07/2023 Active Start: 04-21-2023 End: 04-26-2023 take 1 tablet by mouth twice daily doxycycline monohydrate 100 mg tablet Take 1 tablet by mouth two times a day for 5 days. 10 tablet 04/21/2023 04/26/2023 Start: 08-22-2021 End: 05-01-2022 take 1 tablet by mouth twice daily Doxycycline Hyclate 100 mg tablet Discontinued 100 mg PO TWICE A DAY 20 August 22, 2021 12:00am May 01, 2022 1:47pm Start: 12-11-2019 End: 03-20-2020 take 1 tablet by mouth twice daily Doxycycline Hyclate 100 mg tablet Discontinued 100 mg PO TWICE A DAY 20 March 20, 2020 1:00am March 20, 2020 11:44am Start: 09-25-2019 End: 11-13-2019 take 1 tablet by mouth twice daily Doxycycline Hyclate 100 mg tablet Discontinued 100 mg PO TWICE A DAY September 25, 2019 12:00am November 13, 2019 12:52pm Start: 03-16-2019 End: 05-01-2019 take 1 tablet by mouth twice daily Doxycycline Hyclate 100 mg tablet Discontinued 100 mg PO TWICE A DAY March 16, 2019 12:00am May 01, 2019 2:03pm Comment on above: Take 1 tablet by [...] long-term current use of insulin ([facility]) , Morbid obesity with BMI of 50.0-59.9, adult ([facility]) Inject 1.5 mg subcutaneously one time a week. Inject dose once per week. Discard Pen After 2 mL 2 10/26/2024 01/24/2025 Active Start: 06-10-2023 End: 07-27-2024 Dulaglutide (Trulicity) 0.75 mg/0.5 mL pen injector Active 0.75 mg SC EVERY WEEK November 04, 2023 12:00am Start: 03-25-2022 End: 03-25-2022 inject 0.75 mg by subcutaneous injection every week dulaglutide (TRULICITY) 0.75 mg/0.5 mL pen injector Indications: Controlled type 2 diabetes mellitus without complication, without long-term current use of insulin ([facility]) Inject 0.75 mg subcutaneously one time a [...] tablet by mouth twice daily. 60 tablet 06/11/2020 06/06/2021 Discontinued Start: 11-13-2019 take 2 tablets by mo ksh once daily Famotidine (Pepcid) 20 mg tablet Active 40 mg PO DAILY November 13, 2019 12:00am Comment on above: Take 1 tablet by jose eduardo th twice daily. Take 1 tablet by jose eduardo th daily at bedtime. flash glucose scanning reader [...] UGAR DAILY fluconazole 150 mg oral tablet (11 sources) Azole Antifungal Start: 11-20-2024 End: 11-20-2024 [...] Fluconazole (Diflucan) 200 mg tablet Discontinued 200 mg PO DAILY 1 September 13, 2019 12:00am November 13, 2019 12:52pm 120 actuat fluticasone propionate 0.115 mg/actuat / salmeterol 0.021 mg/actuat metered dose inhaler (20 sources) Corticosteroid, beta2-Adrenergic Agonist Start: 06-16-2024 take 2 puff(s) by inhalation twice daily fluticasone-salmeterol HFA (ADVAIR HFA) 115-21 mcg/actuation inhaler Indications: Mild persistent asthma without complication (HCC) Inhale 2 Puffs as instructed two times a day. 1 Each 5 06/16/2024 Active 30 actuat fluticasone furoate 0.2 mg/actuat / vilanterol 0.025 mg/actuat dry powder inhaler (7 sources) Corticosteroid, beta2-Adrenergic Agonist Start: 11-04-2023 Fluticasone Furoate-Vilanterol (Breo Ellipta) 200-25 mcg/dose blister with device Active 1 NMA INHALATION daily 60 November 04, 2023 12:00am after inhalation, rinse mouth with water and spit out; do not swallow Start: 09-13-2017 End: 02-04-2018 Fluticasone Furoate-Vilanter ol (Breo Ellipta) 200-25 mcg/dose blister with device Discontinued 1 NMA INHALATION daily 60 September 13, 2017 12:00am [...] water and spit out; do not swallow 60 actuat formoterol fumarate 0.005 mg/actuat / mometasone furoate 0.2 mg/actuat metered dose inhaler (20 sources) Corticosteroid, beta2-Adrenergic Agonist Start: 10-17-2024 take [...] oral tablet (20 sources) Loop Diuretic Start: 10-17-2020 End: 05-06-2021 Lasix 20 mg [...] disease with (acute) exacerbation; Start: 10-03-2019 End: 11-21-2024 take 1 tablet by mouth once daily furosemide (LASIX) 40 mg tablet Take 1 tablet by mouth once daily. 30 tablet 5 11/22/2024 Active Comment on above: Take 1 tablet [...] blood sugar in 15 min after dose 12 hr guaiFENesin 1200 mg extended release oral tablet (20 sources) Start: 04-07-2023 take 1200 mg by mouth every twelve hours Guaifenesin Active 1200 MG PO Q12H 60 April 07, 2023 10:57am Start: 03-26-2021 End: 04-07-2023 take 1 tablet by mouth every twelve hours as needed for congestion Guaifenesin 1,200 mg tablet extended release 12hr Discontinued 1200 mg PO Q12H as needed for congestion 60 June 23, 2022 10:18am April 07, 2023 11:57am Start: 12-07-2019 End: 02-26-2021 take 1 tablet by mouth every twelve hours Guaifenesin 1,200 mg tablet extended release 12hr Discontinued 1200 mg PO Q12H 60 December 07, 2019 12:00am February 26, 2021 12:55pm Start: 08-23-2017 End: 02-04-2018 take 1 tablet by mouth twice daily Guaifenesin 1,200 MG tablet Discontinued 1200 mg PO TWICE A DAY 14 0 August 23, 2017 12:00am February 04, 2018 8:55am hydrocortisone 10 mg/ml / neomycin 3.5 mg/ml / polymyxin b [id number] unt/ml otic suspension (2 sources) Aminoglycoside Antibacterial, Polymyxin-class Antibacterial, Corticosteroid Start: 12-22-2024 End: 12-29-2024 zorytifv-pnnwdrgzh-zmjimuaig isone (CORTISPORIN) 3.5-10,000-1 mg/mL-unit/mL-% otic suspension Use [...] Mood Stabilizer, Anti-epileptic Agent Start: 07-31-2022 take 2 tablets by mouth at bedtime Lamotrigine 100 mg tablet Active 200 mg PO AT BEDTIME July 31, 2022 1:36pm Start: 07-31-2022 take 200 mg by mouth at bedtim e Lamotrigine Active 200 MG PO AT BEDTIME July 31, 2022 12:36pm Start: 05-13-2022 take 1 tablet by jose eduardo th once daily at bedtime lamoTRIgine (LAMICTAL) 200 mg tablet Take 200 mg by mouth daily at bedtime. 05/13/2022 Active Start: 03-19-2019 End: 05-01-2019 Lamotrigine 100 tablet Disco ntinued 1 {tbl} PO DAILY March 19, 2019 12:00am May 01, 2019 2:06pm Start: 03-19-2019 End: 05-01-2019 take 1 tablet by mouth once daily Lamotrigine Discontinued 1 TABLET PO DAILY March 18, 2019 11:00pm May 01, 2019 1:06pm Start: 07-27-2018 End: 07-31-2022 take 1 tablet by mouth at bedtime Lamotrigine 100 mg tablet Discontinued 100 mg PO AT BEDTIME May 01, 2019 2:04pm July 31, 2022 1:37pm Comment on above: 100 mg. levothyroxine sodium 0.05 mg oral tablet (20 sources) l-Thyroxine Start: 05-22-202 5 take 1 tablet by mouth once [...] tablet 5 04/12/2024 Active Start: 05-15-2021 take 1 capsule by mo [facility] once daily Levothyroxine 50 mcg capsule Active 50 ug PO DAILY May 15, 2021 1:00am Comment on above: Take 1 tablet by jose eduardo once daily. Take on empty stomach. For Thyroid TAKE 1 TABLET BY JOSE EDUARDO DAILY TAKE ON EMPTY STOMACH. FOR THYROID [...] 5 10/15/2020 04/08/2021 Discontinued Start: 11-02-2019 take 1 tablet by jose eduardo twice daily Metoprolol Succinate 25 mg tablet extended release 24 hr Active 25 mg PO TWICE A DAY November 02, 2019 12:00am Comment on above: Take 1 tablet by jose eduardo twice daily. Take 1 tablet by jose eduardo two times a day. montelukast 10 mg oral tablet (20 sources) Leukotriene Receptor Antagonist Start: 0 End: take 1 tablet by mouth once daily at bedtime montelukast (SINGULAIR) 10 mg tablet Take 1 tablet by mouth daily at bedtime. 30 tablet 5 10/11/2024 Active mupirocin 0.02 mg/mg topical ointment (20 sources) RNA Synthetase Inhibitor Antibacterial Start: mupirocin (BACTROBAN) 2 % ointment Apply 1 [...] above: Take 1 tablet by jose eduardo twice daily as needed (for pain/inflammation). Take [...] 10/11/2024 Active Start: 03-25-2022 End: 05-25-2022 take 1 capsule by mouth at bedtime Omeprazole 20 mg capsule,delayed release(DR/EC) Active 20 mg PO AT BEDTIME May 01, 2022 1:00am Comment on above: Take 1 capsule by mo uth daily before breakfast. 1/2 hr before meal. TAKE 1 CAPSULE BY MO UTH DAILY 1/2 HOUR BEFORE BREAKFAST ondansetron 4 [...] Discontinued (Course of therapy completed) Start: 07-31-2022 End: 11-04-2023 take 1 tablet by mouth every eight hours Ondansetron 4 mg tablet,disintegrating Discontinued 4 mg PO Q8H July 31, 2022 12:00am November 04, 2023 1:54pm Start: 06-10-2022 End: 04-12-2023 take 1 tablet by mouth every eight hours as needed ondansetron (ZOFRAN) 4 mg tablet Take 1 tablet by mouth every 8 hours as needed for nausea/vomiting (for nausea.). 60 tablet 1 06/10/2022 04/12/2023 Discontinued Comment on above: Take 1 tablet by jose eduardo th every 8 hours as needed for nausea/vomiting [...] oral tablet (20 sources) Start: 08-01-19 take 1 capsule by mouth once daily Potassium Chloride 10 mEq capsule, extended release Active 10 meq PO DAILY July 31, 2022 12:00am Start: 06-11-2020 End: 03-17-2024 take 1 tablet [...] daily. 10 tablet 02/02/2024 02/17/2024 Discontinued Start: 01-04-2024 End: 01-30-2024 predniSONE (DELTASONE) 10 mg tablet [...] 8 tablet 0 07/09/2023 07/13/2023 Active Start: 04-21-2023 End: 04-26-2023 take 2 tablets by mouth once daily predniSONE (DELTASONE) 20 mg tablet Take 2 tablets by mouth once daily for 5 days. 10 tablet 04/21/2023 04/26/2023 Start: 04-07-2023 End: 11-04-2023 predniSONE (DELTASONE) 10 mg tablet Take 4 tabs daily for 3 days, then 2 tabs daily for 3 days, then 1 tab daily for 3 days with food. 21 tablet 06/30/2023 07/09/2023 Discontinued (Course of therapy completed) Start: 04-05-2023 End: 04-09-2023 take 2 tablets [...] 04/24/2021 Discontinued Start: 01-06-2021 End: 10-27-2021 Prednisone 10 mg tablet Discontinued 10 mg PO daily 30 January 16, 2021 12:46pm August 22, 2021 3:04pm take 4 tabs for three days, then 3 tabs for three days, then 2 tabs for three days, then 1 tab for 3 days Start: 10-02-2020 End: 11-13-2020 take 4 tablets by mouth once daily, then take 3 tablets by mouth once daily, then take 2 tablets by mouth once daily, then take 1 tablet by mouth once daily Prednisone 10 mg tablet Discontinued 10 mg PO daily 30 October 02, 2020 12:00am November 13, 2020 1:21pm Take 4 tabs PO daily for 3 days, then 3 tabs PO daily for 3 days, 2 tabs PO daily for 3 days then 1 tab PO daily for 3 days Start: 12-22-2019 End: 12-26-2019 take 2 tablets by mouth once daily at mealtime Prednisone 20 MG tablet Discontinued 40 mg PO DAILY 8 December 22, 2019 12:00am December 25, 2019 12:00am December 26, 2019 12:02am With food Start: 12-22-2019 End: 12-26-2019 take 40 mg by mouth once daily at mealtime Prednisone Discontinued 40 MG PO DAILY 8 December 21, 2019 11:00pm December 25, 2019 11:02pm With food Start: 12-07-2019 End: 05-14-2020 Prednisone 10 mg tablet Discontinued 10 mg PO daily 30 April 08, 2020 10:44am May 14, 2020 1:33pm 4 tablet daily for 3 days, then 3 tablet for 3 days then 2 tablet daily for 3 days then 1 tablet daily for 3 days Start: 09-13-2019 End: 11-13-2019 take 3 tablets by mouth once daily at mealtime Prednisone 20 mg tablet Discontinued 60 mg PO daily 15 0 September 25, 2019 10:47am November 13, 2019 12:53pm administer with food or milk Start: 09-13-2019 End: 11-13-2019 take 60 mg by mouth once daily at mealtime Prednisone Discontinued 60 MG PO daily 15 September 25, 2019 9:47am November 13, 2019 11:53am administer with food or milk Start: 03-10-2019 End: 05-01-2019 take 3 tablets by mouth once daily at mealtime Prednisone 20 mg tablet Discontinued 60 mg PO daily 15 0 March 16, 2019 8:50am May 01, 2019 2:06pm administer with food or milk Start: 03-10-2019 End: 05-01-2019 take 60 mg by mouth once daily at mealtime Prednisone Discontinued 60 MG PO daily March 16, 2019 7:50am May 01, 2019 1:06pm administer with food or milk Start: 03-23-2018 End: 11-01-2018 take 3 tablets by mouth once daily at mealtime Prednisone 20 mg tablet Discontinued 60 mg PO daily 15 September 08, 2018 12:00am November 01, 2018 1:13pm administer with food or milk Start: 03-23-2018 End: 11-01-2018 take 60 mg by mouth once daily at mealtime Prednisone Discontinued 60 MG PO daily September 07, 2018 11:00pm November 01, 2018 12:13pm administer with food or milk Start: 01-16-2018 End: 02-04-2018 take 2 tablets by mouth once daily at mealtime Prednisone 20 MG tablet Discontinued 40 mg PO DAILY January 16, 2018 12:00am February 04, 2018 8:56am With food Start: 01-16-2018 End: 02-04-2018 take 40 mg by mouth once daily at mealtime Prednisone Discontinued 40 MG PO DAILY January 15, 2018 11:00pm February 04, 2018 7:56am With food Start: 08-23-2017 End: 09-13-2017 Prednisone 10 MG tablet Discontinued 10 mg PO DIRECTED August 23, 2017 12:00am September 13, 2017 9:13am TAKE 4 TABLETS BY MOUTH DAILY WITH FOOD FOR 3 DAYS, THEN TAKE 3 TABLETS BY MOUTH DAILY WITH FOOD FOR 3 DAYS, THEN TAKE 2 TABLETS BY MOUTH DAILY WITH FOOD FOR 3 DAYS, THEN TAKE 1 TABLETS BY MOUTH DAILY WITH FOOD FOR 3 DAYS, THEN STOP Comment on above: Take 2 tablets by mo [facility] once daily for 4 days. Take daily with food. Take 4 tabs daily fo r 3 days, then 2 tabs daily for 3 days, then 1 tab daily for 3 days with food. TRUE METRIX GLUCOSE METER (20 sources) Start: [...] every six hours as needed for pain HYDROcodone-acetam inophen (NORCO) 5-325 mg per tablet Indications: Acute pain of right knee Take 1 tablet by mouth every 6 hours as needed for pain for up to 7 days. 24 tablet 0 05/28/2022 06/04/2022 Comment on above: Take 1 tablet by [facility] every 6 hours as needed for pain for up to 7 days. benzonatate 100 mg oral capsule (20 sources) Non-narcotic Antitussive Start: 04-16-2023 End: 12-03-2023 take 2 capsules by mouth every eight hours as needed benzonatate (TESSALON PERLE) 100 mg capsule Take 2 capsules by mouth three times a day as needed for cough. 60 capsule 2 04/16/2023 12/03/2023 Discontinued Start: 12-14-2019 End: 02-26-2021 take 1 capsule by mouth three times daily as needed for cough Benzonatate 100 MG capsule Discontinued 100 mg PO THREE TIMES A DAY as needed for Cough 20 0 December 14, 2019 12:12am October 13th, 2021 12:55pm Comment on above: Take 2 capsules by [facility] three times a day as needed for cough. 60 actuat budesonide 0.16 mg/actuat / formoterol fumarate 0.0045 mg/actuat metered dose inhaler (20 sources) Corticosteroid, beta2-Adrenergic Agonist Start: 05-13-2022 End: 04-01-2024 SYMBICORT 160-4.5 mcg/actuation inhaler 05/13/2022 04/01/2024 Discontinued (Course of therapy completed) Start: 01-22-2022 End: 11-04-2023 Budesonide-Formoterol (Symbi oswald) 160-4.5 mcg/actuation HFA aerosol inhaler Discontinued 2 NMA INHALATION TWICE A DAY 1 January 22, 2022 7:57am November 04, 2023 2:21pm administer with spacer, rinse mouth after each use Start: 01-22-2022 take 1 puff(s) by [facility] twice daily Budesonide-Formoterol (Symbicort) 160-4. 5 mcg/actuation HFA aerosol inhaler Active 2 PUFF INHALATION TWICE A DAY January 22, 2022 6:57am administer with spacer, rinse mouth after each use Start: 01-22-2022 take 1 puff(s) by [facility] twice daily Budesonide-Formoterol (Symbicort) 160-4. 5 mcg/actuation HFA aerosol inhaler Active 2 PUFF INHALATION TWICE A DAY January 22, 2022 7:57am administer with spacer, rinse mouth after each use Start: 07-11-2021 End: 01-22-2022 Budesonide-Formoterol (Symbi oswald) 160-4.5 mcg/actuation HFA aerosol inhaler Discontinued 2 NMA INHALATION TWICE A DAY 1 July 11, 2021 9:50am January 22, 2022 7:58am administer with spacer, rinse mouth after each use Start: 07-11-2021 End: 01-22-2022 take 1 puff(s) by mouth twice daily Budesonide-Formoterol (Symbicort) 160-4. 5 mcg/actuation HFA aerosol inhaler Discontinued 2 PUFF INHALATION TWICE A DAY July 11, 2021 8:50am January 22, 2022 6:58am administer with spacer, rinse mouth after each use Start: 07-11-2021 End: 01-22-2022 take 1 puff(s) by mouth twice daily Budesonide-Formoterol (Symbicort) 160-4. 5 mcg/actuation HFA aerosol inhaler Discontinued 2 PUFF INHALATION TWICE A DAY July 11, 2021 9:50am January 22, 2022 7:58am administer with spacer, rinse mouth after each use Start: 12-31-2020 End: 07-11-2021 Budesonide-Formoterol (Symbi oswald) 160-4.5 mcg/actuation HFA aerosol inhaler Discontinued 2 NMA INHALATION TWICE A DAY 05 22December 31, 2020 7:58am July 11, 2021 9:50am administer with spacer, rinse mouth after each use Start: 12-31-2020 End: 07-11-2021 take 1 puff(s) by mouth twice daily Budesonide-Formoterol (Symbicort) 160-4. 5 mcg/actuation HFA aerosol inhaler Discontinued 2 PUFF INHALATION TWICE A DAY December 31, 2020 6:58am July 11, 2021 8:50am administer with spacer, rinse mouth after each use Start: 12-31-2020 End: 07-11-2021 take 1 puff(s) by mouth twice daily Budesonide-Formoterol (Symbicort) 160-4. 5 mcg/actuation HFA aerosol inhaler Discontinued 2 PUFF INHALATION TWICE A DAY December 31, 2020 7:58am July 11, 2021 9:50am administer with spacer, rinse mouth after each use Start: 05-14-2020 End: 12-31-2020 Budesonide-Formoterol (Symbi oswald) 160-4.5 mcg/actuation HFA aerosol inhaler Discontinued 2 NMA INHALATION TWICE A DAY 05 22May 14, 2020 1:00am December 31, 2020 7:58am administer with spacer, rinse mouth after each use Start: 05-14-2020 End: 12-31-2020 take 1 puff(s) by mouth twice daily Budesonide-Formoterol (Symbicort) 160-4. 5 mcg/actuation HFA aerosol inhaler Discontinued 2 PUFF INHALATION TWICE A DAY May 14, 2020 12:00am December 31, 2020 6:58am administer with spacer, rinse mouth after each use Start: 05-14-2020 End: 12-31-2020 take 1 puff(s) by mouth twice daily Budesonide-Formoterol (Symbicort) 160-4. 5 mcg/actuation HFA aerosol inhaler Discontinued 2 PUFF INHALATION TWICE A DAY May 14, 2020 1:00am December 31, 2020 7:58am administer with spacer, rinse mouth after each use Start: 09-20-2017 End: 05-01-2019 Budesonide-Formoterol (Symbi oswald) 160-4.5 mcg/actuation HFA aerosol inhaler Discontinued 2 NMA INHALATION TWICE A DAY 05 22September 20, 2017 12:00am May 01, 2019 2:30pm administer with spacer, rinse mouth after each use Start: 09-20-2017 End: 05-01-2019 take 1 puff(s) by mouth twice daily Budesonide-Formoterol (Symbicort) 160-4. 5 mcg/actuation HFA aerosol inhaler Discontinued 2 PUFF [...] by mouth twice daily for 7 days. Comp Stocking,Knee,R egular,Med misc (4 sources) Start: 04-24-2021 End: 07-03-2021 Comp Stocking,Knee,Regul ar,Med misc Indications: Bilateral lower extremity edema , [...] 07/16/2021 Discontinued escitalopram 10 mg oral tablet (6 sources) Serotonin Reuptake Inhibitor Start: 03-20-2020 End: 05-01-2022 take 1 tablet by mouth once daily Escitalopram Oxalate (Lexapro) 10 mg tablet Discontinued 10 mg PO DAILY March 20, 2020 1:00am May 01, 2022 1:47pm fluticasone propionate 0.05 mg/actuat metered dose nasal spray (20 sources) Corticosteroid Start: 10-15-2020 End: 06-16-2024 take 2 spray(s) by mouth once daily fluticasone (FLONASE) 50 mcg/actuation nasal spray Indications: Tinnitus of both ears , ETD (Eustachian tube dysfunction), bilateral Use 2 Sprays in each nostril once daily. Rinse mouth after use. 1 Each 09/03/2022 06/16/2024 Discontinued Start: 10-02-2016 End: 09-13-2017 Fluticasone Propionate 1 SPR AY spray,suspension Discontinued 1 NMA PO DAILY as needed for Allergies October 02, 2016 12:00am September 13, 2017 9:13am Start: 10-02-2016 End: 09-13-2017 take 1 spray(s) by mouth once daily Fluticasone Propionate Discontinued 1 SPRAY PO DAILY October 01, 2016 11:00pm September 13, 2017 8:13am Comment on above: Use 2 Sprays in each nostril once daily. Rinse mouth after use. FREESTYLE ANA PAULA 2 SENSOR kit (2 sources) Start: 04-20-2023 End: 05-19-2023 FREESTYLE ANA PAULA 2 SENSOR kit USE TO CHECK BLOOD SUGAR DAILY 2 Each 04/20/2023 05/19/2023 Discontinued Start: 04-20-2023 FREESTYLE LIBR E 2 SENSOR kit USE TO CHECK BLOOD SUGAR DAILY 2 Each 0 04/20/2023 Active Comment on above: USE TO CHECK BLOOD S UGAR DAILY homatropine methylbromide 0.3 mg/ml / HYDROcodone bitartrate 1 mg/ml oral solution (3 sources) Opioid Agonist, Cholinergic Muscarinic Agonist Start: 05-13-2023 End: 11-04-2023 Hydrocodone-Homatropine (Hydromet) 5-1.5 mg/5 mL syrup Discontinued mL PO ONCE as needed 0 May 13, 2023 1:00am November 04, 2023 1:51pm Start: 05-13-2023 Hydrocodone-Ho matropine (Hydromet) 5-1.5 mg/5 mL syrup Active ML PO ONCE May 13, 2023 12:00am Start: 04-21-2023 End: 04-28-2023 take 5 mL by mouth every six hours as needed for cough and cough HYDROcodone-homatropine (HYCODAN) 5-1.5 mg/5 mL (5 mL) syrup Indications: Acute cough Take 5 mL by mouth every 6 hours as needed for up to 7 days. 140 mL 04/21/2023 04/28/2023 hydrocortisone 25 mg/ml topical cream (20 sources) Corticosteroid Start: 01-23-2022 End: 06-03-2022 hydrocortisone (ANUSOL-HC) 2.5 % rectal cream Indications: Hemorrhoids, unspecified hemorrhoid type Use as per instructions. 28 g 01/23/2022 06/03/2022 Discontinued Comment on above: Use as per instructi ons. hydrOXYzine hydrochloride 25 mg oral tablet (20 sources) Antihistamine Start: 03-03-2023 End: 04-01-2024 take 1 tablet by mouth every twenty-four [...] provided with radiology test) (5 sources) Start: 10-11-2024 End: 10-12-2024 iv contrast (will be provided with radiology [...] in the CT contrast administration guidelines link. 2 ml ketorolac tromethamine 30 mg/ml injection (2 sources) Nonsteroidal Anti-inflammatory Drug, Cyclooxygenase Inhibitor Start: 12-25-2024 End: 12-25-2024 keTORolac 60 mg injection (Toradol) Start: 12-25-2024 End: 12-25-2024 60 mg, INTRAMUSCULAR, ONCE, 1 dose, On Wed12/25/24 at 1530, Ketorolac (Toradol) is indicated for the short-term (up to 5 days) management of moderately severe acute pain. Continuation of ketorolac (Toradol) beyond 5 days increases the risk of developing serious adverse events. Please verify the duration of therapy for ketorolac (Toradol). levoFLOXacin 750 mg oral tablet (10 sources) Quinolone Antimicrobial Start: 01-31-2024 End: 02-05-2024 take 1 tablet by mouth once daily [...] 04/02/2021 Discontinued Start: 03-27-2020 End: 04-01-2020 take 1 tablet by mouth every twenty-four hours Levofloxacin 500 mg tablet Discontinued 500 mg PO Q24H 5 5 0 March 27, 2020 1:00am March 31, 2020 1:00am April 01, 2020 1:02am loratadine 10 mg oral capsule (12 sources) Start: 05-24-2019 End: 11-13-2019 take 1 capsule by mouth once daily Loratadine 10 MG capsule Discontinued 10 mg PO DAILY May 24, 2019 1:00am November 13, 2019 12:53pm Start: 03-19-2014 loratadine 10 mg oral tablet Dose : 10 mg = 1 tab(s), Oral, qDayAC Start Date: 03/19/14 Status: Ordered Medication Dispense Status: Completed Total Allowed Fills: 1 Fills Dispensed: 0 meloxicam 15 mg oral tablet (6 sources) Nonsteroidal Anti-inflammatory Drug Start: 05-24-2019 End: 05-01-2022 take 1 tablet by mouth once daily Meloxicam 15 MG tablet Discontinued 15 mg PO DAILY May 24, 2019 1:00am May 01, 2022 1:48pm metFORMIN hydrochloride 500 mg oral tablet (17 sources) Biguanide Start: 05-15-2021 End: 05-01-2022 take 1 tablet by mouth once daily Metformin 500 mg tablet Discontinued 500 mg PO DAILY May 15, 2021 1:00am May 01, 2022 1:48pm Start: 05-05-2021 take 1 tablet by jose [...] tablet by jose eduardo every 8 hours for 7 days. miconazole nitrate 100 mg vaginal insert (6 sources) Azole Antifungal Start: End: Miconazole Nitrate (Miconazole-7) 100 mg suppository Discontinued 100 mg VAGINAL AT BEDTIME 7 7 0 March 25, 2020 1:00am March 31, 2020 1:00am April 01, 2020 1:02am nabumetone 500 mg oral tablet (20 sources) [...] above: Take 1 tablet by jose eduardo twice daily. Nebulizer (6 sources) Start: 03-12-2021 End: 03-12-2021 Nebulizer Discontinued 0 .ROUTE .MEDSUPPLY 1 0 March 12, 2021 12:00am March 12, 2021 11:32am As directed Start: 03-12-2021 End: 03-12-2021 Nebulizer Discontinued 0 .[place] .MEDSUPPLY March 11, 2021 11:00pm March 12, 2021 10:32am As directed Start: 03-12-2021 End: 03-12-2021 Nebulizer Discontinued 0 .RO [place] .MEDSUPPLY March 12, 2021 12:00am March 12, 2021 11:32am As directed Nicotine (12 sources) Cholinergic Nicotinic Agonist Start: 02-26-2021 End: 10-27-2021 apply 1 dose transdermal route once daily, then apply 1 dose transdermal route once daily Nicotine 21-14-7 mg/24 hr patch, TD daily, sequential Discontinued 0 TD .COMPLEX 56 0 February 26, 2021 12:00am October 27, 2021 2:55pm Mild intermittent asthma Mild intermittent asthma, uncomplicated apply 1-21 mg NICOTINE PATCH daily for 28 days; follow with 1-14 mg PATCH daily for 14 days, then 1-7mg PATCH daily for 14 days transdermal Start: 02-26-2021 End: 10-27-2021 apply 1 dose transdermal route once daily, then apply 1 dose transdermal route once daily Nicotine Discontinued 0 TD .COMPLEX 56 February 25, 2021 11:00pm October 27, 2021 1:55pm apply 1-21 mg NICOTINE PATCH daily for 28 days; follow with 1-14 mg PATCH daily for 14 days, then 1-7mg PATCH daily for 14 days transdermal Start: 02-26-2021 End: 10-27-2021 apply 1 dose transdermal route once daily, then apply 1 dose transdermal route once daily Nicotine Discontinued 0 TD .COMPLEX 56 February 26, 2021 12:00am October 27, 2021 2:55pm apply 1-21 mg NICOTINE PATCH daily for 28 days; follow with 1-14 mg PATCH daily for 14 days, then 1-7mg PATCH daily for 14 days transdermal Start: 08-23-2017 End: 09-13-2017 apply 21 mg transdermal route once daily Nicotine 21 MG patch Discontinued 21 mg TRANSDERM. DAILY 30 0 August 23, 2017 12:00am September 13, 2017 9:13am nortriptyline 50 mg oral capsule (20 sources) [...] 30 capsule 5 10/15/2020 04/08/2021 Discontinued Start: 10-02-2016 End: 11-04-2023 nortriptyline 10 mg oral cap enoch Dose : 10 mg = 1 cap(s), Oral, TID Start Date: 02/22/17 Status: Ordered Medication Dispense Status: Completed Total Allowed Fills: 1 Fills Dispensed: 0 Start: 10-02-2016 take 25 mg by mouth at bedtime Nortriptyline Active 25 MG PO AT BEDTIME October 01, 2016 11:00pm Comment on above: Take 1 capsule by mo [facility] daily at bedtime. TAKE 1 CAPSULE BY [facility] AT BEDTIME perflutren lipid microspheres 1.3 [...] 10 mL injection (DEFINITY) polyethylene glycol 3350 32844 mg powder for oral solution (8 sources) Osmotic Laxative Start: 02-20-2022 End: 04-15-2022 polyethylene glycol 3350 (MIRALAX) 17 gram/dose powder Use 1/2-1 capful daily as needed for constipation 116 g 1 02/20/2022 04/15/2022 Discontinued (Discontinued by Patient) Comment on above: Use 1/2-1 capful abena ly as needed for constipation promethazine hydrochloride 25 mg oral tablet (20 sources) Phenothiazine Start: 07-27-2022 End: 11-04-2023 take 1 tablet by mouth three times daily as needed for nausea Promethazine (Phenergan) 25 mg Tablet Discontinued 25 mg PO THREE TIMES A DAY as needed for Nausea July 27, 2022 12:00am November 04, 2023 1:55pm Start: 07-17-2022 End: 04-01-2024 take 1 tablet by mouth every eight hours as needed promethazine (PHENERGAN) 25 mg tablet Take 1 tablet by mouth every 8 hours as needed. 30 tablet 07/17/2022 04/01/2024 Discontinued (Course of therapy completed) Comment on above: Take 1 tablet by jose eduardo every 8 hours as needed. raNITIdine 150 mg oral tablet (12 sources) Histamine-2 Receptor Antagonist Start: 4 End: 0 take 1 tablet by mouth at bedtime Ranitidine Hcl 150 MG tablet Discontinued 150 mg PO AT BEDTIME August 17, 2017 12:00am November 13, 2019 12:54pm heartburn 125 ml sodium chloride 9 mg/ml prefilled syringe (20 sources) Start: 3 End: 4 sodium chloride 0.9 % (flush) 10 mL [...] (20 sources) Central alpha-2 Adrenergic Agonist Start: 4 End: 4 take 1 tablet by mouth every eight [...] needed. 90 tablet 11/21/2020 07/16/2021 Discontinued Start: 10-02-2016 End: 05-01-2022 tiZANidine 2 mg oral tablet Dose : 4 mg = [...] affected area. voriconazole 200 mg oral tablet (20 sources) Azole Antifungal Start: 02-25-2024 End: 10-11-2024 take 1 tablet by mouth twice daily voriconazole (VFEND) 200 mg tablet Take 200 mg by mouth two times a day. 02/25/2024 10/11/2024 Discontinued Start: 02-25-2024 take 1 tablet by [facility] every twelve hours 1 hour(s) after mealtime Voriconazole 200 mg tablet Active 200 mg PO Q12H 60 February 25, 2024 12:00am administer on empty stomach, at least 1 hour before or after meal(s) zolpidem tartrate 10 mg oral tablet (12 sources) gamma-Aminobutyric Acid-ergic Agonist Start: 10-02-2016 End: 05-01-2019 take 1 tablet by mouth once daily Zolpidem 10 MG tablet Discontinued 10 mg PO DAILY October 02, 2016 12:00am May 01, 2019 2:06pm sleep Start: 03-19-2014 take 1 dose by mouth [...] quadrant pain] Onset: 5 Episodic Acute bronchitis (12 sources) Acute bronchitis due to other specified organisms; Translations: [Acute bronchitis due to human metapneumovirus (hMPV)] 05-24-2019 Episodic Adjustment disorders (20 sources) Adjustment disorder with depressed mood; Translations: [Adjustment disorder with depressed mood] Onset: 5 12-17-2016 Chronic Allergic reactions (20 sources) Allergic disorder of skin; Translations: [Allergic contact dermatitis, unspecified cause] Onset: 0 Resolved: 6 02-20-2016 Episodic Anxiety disorders (20 sources) Anxiety; Translations: [Anxiety [...] pulmonary disease with (acute) exacerbation] 06-30-2023 Chronic Conditions associated with dizziness or vertigo (1 [...] [Nausea] Onset: 5 Episodic Nonmalignant breast conditions (4 sources) Abscess of breast; Translations: [Abscess of the breast and nipple] Onset: 5 12-24-2024 Episodic Nonspecific chest pain (11 sources) Chest pain; Translations: [Chest pain, unspecified] Onset: 5 Episodic Other aftercare (1 source) Follow-up status; Translations: [Encounter for change or removal of nonsurgical wound dressing] 04-02-2024 Episodic Other and ill-defined heart disease (20 sources) Left ventricular hypertrophy; Translations: [Cardiomegaly] Onset: 0 11-02-2019 Chronic Other and ill-defined heart disease (20 sources) Diastolic dysfunction; Translations: [Other ill-defined heart diseases] Onset: 0 11-02-2019 Chronic Other bone disease and musculoskeletal deformities (18 sources) Segmental and somatic dysfunction; Translations: [Segmental [...] of pulmonary aspergillosis] Onset: 5 Episodic Other injuries and conditions due to external causes (1 source) Wound pain ; Translations: [Other injury of unspecified body region, initial encounter] 12-25-2024 Episodic Other injuries and conditions due to external causes (1 source) Other injury of unspecified body region, initial encounter; Translations: [Wound pain] Onset: 5 Episodic Other liver diseases (5 sources) Steatosis of liver; Translations: [Fatty (change of) liver, not elsewhere classified] 10-02-2022 Chronic Other lower respiratory disease (6 sources) Viral respiratory infection; Translations: [Other specified respiratory disorders] 05-24-2019 Episodic Other lower respiratory disease (6 sources) Hypoxemia; Translations: [Hypoxemia] 09-13-2017 Episodic Other lower respiratory disease (17 sources) Cough; Translations: [Cough] 12-23-2019 Episodic Other [...] Dyspnea, unspecified; Translations: [Dyspnea, unspecified type] Onset: Episodic Other lower respiratory disease (1 source) [...] Onset: 5 Episodic Other upper respiratory infections (6 sources) Sinusitis; Translations: [Chronic sinusitis, unspecified] 09-13-2019 Chronic Otitis media and related conditions (2 sources) Dysfunction of bilateral eustachian tubes; Translations: [Other specified disorders of Eustachian tube, bilateral] Episodic Residual codes; unclassified (20 sources) Obstructive sleep apnea syndrome; Translations: [Obstructive sleep apnea (adult) (pediatric)] Onset: 8 04-04-2018 Chronic Comment on above: AHI 37.4 treated wit h CPAP 11 cm of water, residual AHI 0.2 Residual codes; unclassified (4 sources) Obstructive sleep apnea (adult) (pediatric); Translations: [Obstructive sleep apnea (adult)(pediatric)] 05-01-2022 Chronic Residual codes; unclassified (6 sources) Insomnia 08-30-2014 Episodic Residual codes; unclassified (1 source) Procedure not done; Translations: [Procedure and treatment not carried out, unspecified reason] 12-10-2022 Episodic Residual codes; unclassified (2 sources) Chill; Translations: [Chills (without fever)] 01-21-2024 Episodic Residual codes; unclassified (1 source) Tobacco use and exposure - finding; Translations: [Tobacco use] 10-20-2024 Episodic Residual codes; unclassified (1 source) Tobacco use; Translations: [Tobacco use] Onset: 5 Episodic Respiratory failure; insufficiency; arrest (adult) (3 sources) Chronic hypoxemic respiratory failure; Translations: [Chronic respiratory failure with hypoxia] Onset: 5 06-16-2024 Chronic Respiratory failure; insufficiency; arrest (adult) (6 sources) Acute respiratory failure; Translations: [Acute respiratory failure with hypoxia] 05-24-2019 Episodic Skin and subcutaneous tissue infections (12 sources) Cellulitis of abdominal wall ; Translations: [...] Classification Problem Date Documented Da te Episodic/Chronic Chronic obstructive pulmonary disease and bronchiectasis (13 sources) Bronchitis; Translations: [Bronchitis, not specified as acute or chronic] Onset: 4 09-13-2017 Episodic Diabetes mellitus without complication (20 sources) Prediabetes; Translations: [Prediabetes] Onset: 2 07-16-2021 Episodic Gastrointestinal hemorrhage (20 sources) Rectal hemorrhage; Translations: [Hemorrhage of anus and rectum] Onset: 5 Resolved: 0 Episodic Gastrointestinal hemorrhage (1 source) Gastrointestinal hemorrhage Onset: 3 Hemorrhoids (20 sources) Hemorrhoids; Translations: [Unspecified hemorrhoids] Onset: 6 Resolved: 6 Episodic Mycoses (6 sources) 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; Translations: [Other forms of aspergillosis] Onset: 4 03-17-2024 Episodic Other connective tissue disease (20 sources) [...] respiratory infection, unspecified] Onset: 4 06-30-2023 Episodic Residual codes; unclassified (20 sources) Bilateral lower limb edema; Translations: [Localized edema] Onset: 1 11-04-2020 Episodic Residual codes; unclassified (1 source) Procedure and treatment not carried out due to patient leaving prior to being seen by health care provider; Translations: [Procedure and treatment not carried out due to patient leaving prior to being seen by health care provider] Onset: 4 Episodic Residual codes; unclassified (1 source) Chills (without fever); Translations: [Chills] Onset: 4 Episodic Spondylosis; intervertebral disc disorders; other back problems (20 sources) Lumbago co-occurrent with right-side sciatica; Translations: [Lumbago with sciatica, right side] Onset: 6 04-27-2016 Episodic Unclassified (1 source) Patient encounter status 10-31-2024 Results Test Name Value Interpretation Reference Range Facility CNOVon 12-26-2024 CNOV Normal [facility] Absolute lymphocyte countOrd ered By: Dianelys Fenton on 12-25-2024 Lymphocytes Auto (Unsp spec) [#/Vol] 3.10 10*3/uL 0.83-4.51 [facility] Absolute neutrophil countOrd ered By: Dianelys Fenton on 12-25-2024 Neutrophils (Bld) [#/Vol] 8.3 10*3/uL High 2.0-7.7 [facility] [facility] Anion gap in Serum or Plasma Ordered By: Dianelys Fenton on 12-25-2024 Anion gap [Moles/Vol] 11 mmol/L 5-15 [facility] Automated lymphocyte count a s percentage of total leukocytesOrdered By: Dianelys Fenton on 12-25-2024 Lymphocytes/100 WBC Auto (Unsp spec) 25.0 % - [facility] BUN/creatinine ratioOrdered By: Dianelys Fenton on 12-25-2024 Urea nitrogen/Creatinine [Mass ratio] 17.3 mg/mg - [facility] Basic Metabolic Profile (BMP )on 12-25-2024 BUN/CRE 17.3 RATIO Normal - [facility] Comment on above: Performed By: #### L 100.0100, L500.2500, L503.6005 #### [facility] [address] [place], [address] Calcium [Mass/Vol] 9.5 mg/dL Normal 7.6-11.0 [facility] Comment on above: Performed By: #### L 100.0100, L500.2500, L503.6005 #### [facility] [address] [place], [address] Chloride [Moles/Vol] 102 mmol/L Normal 98-108 [facility] Comment on above: Performed By: #### L 100.0100, L500.2500, L503.6005 #### [facility] [address] [place], [address] CO2 [Moles/Vol] 25.8 mmol/L Normal 21.0-32.0 [facility] Comment on above: Performed By: #### L 100.0100, L500.2500, L503.6005 #### [facility] [address] [place], [address] Creatinine [Mass/Vol] 0.78 mg/dL Normal 0.70-1.20 [facility] Comment on above: Performed By: #### L 100.0100, L500.2500, L503.6005 #### [facility] [address] [place], [address] ECRCL 126.82 ml/min Normal 50-250 [facility] Comment on above: Performed By: #### L 100.0100, L500.2500, L503.6005 #### [facility] [address] [place], [address] GAP 11 Normal 5-15 [facility] Comment on above: Performed By: #### L 100.0100, L500.2500, L503.6005 #### [facility] [address] [place], [address] GFR/1.73 sq M.predicted among non-blacks MDRD (S/P/Bld) [Vol rate/Area] 95 mL/min/{1.73_m2} Normal >60 [facility] Comment on above: Result Comment: mL/m in/1.73m2 CKD-EPI Creatinine Equation (2020) Performed By: #### L 100.0100, L500.2500, L503.6005 #### [facility] [address] [place], [address] Glucose [Mass/Vol] 102 mg/dL High 70-99 [facility] Comment on above: Performed By: #### L 100.0100, L500.2500, L503.6005 #### [facility] [address] [place], [address] Potassium [Moles/Vol] 3.9 mmol/L Normal 3.3-5.1 [facility] Comment on above: Performed By: #### L 100.0100, L500.2500, L503.6005 #### [facility] [address] [place], [address] Sodium [Moles/Vol] 139 mmol/L Normal 133-145 [facility] Comment on above: Performed By: #### L 100.0100, L500.2500, L503.6005 #### [facility] [address] [place], [address] Urea nitrogen [Mass/Vol] 14 mg/dL Normal 4-19 [facility] Comment on above: Performed By: #### L 100.0100, L500.2500, L503.6005 #### [facility] [address] [place], [address] Basophil percentageOrdered B y: Dianelys Fenton on 12-25-2024 Basophils/100 WBC (Bld) 0.3 % 0-1 [facility] CBC W/Diff, Automatedon 12-15 Absolute Lymph 3.10 X10 3/uL Normal 0.83-4.51 [facility] Comment on above: Performed By: #### L 100.0100, L500.2500, L503.6005 #### [facility] [address] [place], [address] Absolute Neut 8.3 X10 3/uL High 2.0-7.7 [facility] Comment on above: Performed By: #### L 100.0100, L500.2500, L503.6005 #### [facility] [address] [place], [address] Basophils/100 WBC (Bld) 0.3 % Normal 0-1 [facility] Comment on above: Performed By: #### L 100.0100, L500.2500, L503.6005 #### [facility] [address] [place], [address] Eosinophils/100 WBC (Bld) 0.5 % Normal 0-5 [facility] Comment on above: Performed By: #### L 100.0100, L500.2500, L503.6005 #### [facility] [address] [place], [address] Erythrocyte distribution width (RBC) [Ratio] 14.6 % Normal 11.6-14.6 [facility] Comment on above: Performed By: #### L 100.0100, L500.2500, L503.6005 #### [facility] [address] [place], [address] Hematocrit (Bld) [Volume fraction] 44.1 % Normal 37-47 [facility] Comment on above: Performed By: #### L 100.0100, L500.2500, L503.6005 #### [facility] [address] [place], [address] Hemoglobin (Bld) [Mass/Vol] 13.7 g/dL Normal 12.0-15.0 [facility] Comment on above: Performed By: #### L 100.0100, L500.2500, L503.6005 #### [facility] [address] [place], [address] IG% 0.500 Normal 0.0-0.9 [facility] Comment on above: Result Comment: IG% - Immature Granulocytes (promyelocytes, myelocytes and metamyelocytes) > 1% indicates that a LEFT SHIFT is Present. Performed By: #### L 100.0100, L500.2500, L503.6005 #### [facility] [address] [place], [address] Lymphocytes/100 WBC (Bld) 25.0 % Normal 19-41 [facility] Comment on above: Performed By: #### L 100.0100, L500.2500, L503.6005 #### [facility] [address] [place], [address] MCH (RBC) [Entitic mass] 29.4 pg Normal 27.0-32.0 [facility] Comment on above: Performed By: #### L 100.0100, L500.2500, L503.6005 #### [facility] [address] [place], [address] MCHC (RBC) [Mass/Vol] 31.1 g/dL Low 32-36 [facility] Comment on above: Performed By: #### L 100.0100, L500.2500, L503.6005 #### [facility] [address] [place], [address] MCV (RBC) [Entitic vol] 94.6 fL Normal 81-99 [facility] Comment on above: Performed By: #### L 100.0100, L500.2500, L503.6005 #### [facility] [address] [place], [address] Monocytes/100 WBC (Bld) 7.0 % Normal 0-10 [facility] Comment on above: Performed By: #### L 100.0100, L500.2500, L503.6005 #### [facility] [address] [place], [address] Neutrophils/100 WBC (Bld) 66.7 % Normal 47-70 [facility] Comment on above: Performed By: #### L 100.0100, L500.2500, L503.6005 #### [facility] [address] [place], [address] Nucleated RBC (Bld) [#/Vol] 0 10*3/uL Normal 0-5 [facility] Comment on above: Performed By: #### L 100.0100, L500.2500, L503.6005 #### [facility] [address] [place], [address] Platelet mean volume (Bld) [Entitic vol] 9.1 fL Normal 6.2-12.0 [facility] Comment on above: Performed By: #### L 100.0100, L500.2500, L503.6005 #### [facility] [address] [place], [address] Platelets (Bld) [#/Vol] 240 10*3/uL Normal 150-450 [facility] Comment on above: Performed By: #### L 100.0100, L500.2500, L503.6005 #### [facility] [address] [place], [address] RBC (Bld) [#/Vol] 4.66 10*6/uL Normal 4.2-5.4 [facility] Comment on above: Performed By: #### L 100.0100, L500.2500, L503.6005 #### [facility] [address] [place], [address] RDW SD 50.8 fl High 35.1-43.9 [facility] Comment on above: Performed By: #### L 100.0100, L500.2500, L503.6005 #### [facility] [address] [place], [address] WBC (Bld) [#/Vol] 12.4 10*3/uL High 4.4-11.0 [facility] Comment on above: Performed By: #### L 100.0100, L500.2500, L503.6005 #### [facility] [address] [place], [address] CNOVon 12-25-2024 CNOV Normal [facility] Carbon dioxide, total [Moles /volume] in Central venous bloodOrdered By: Dianelys Fenton on 12-25-2024 CO2 [Moles/Vol] 25.8 mmol/L 21.0-32.0 [facility] Chloride assayOrdered By: Abad Fenton on 12-25-2024 Chloride [Moles/Vol] 102 mmol/L 98-108 [facility] Emergency Department Summary on 12-25-2024 Emergency Department Summary [facility] Medical Records Department [address] [place] [address] Emergency Department Summary 12/25/24 MR#: [id number] Acct: [id number] Name: DARREN REINOSO Rep #: [id number] : 1980 44 From: Dianelys Fenton MD PCP: Dr. Babar Phillip MD Status:DEP ER Location: ED HPI History of Present Illness Chief Complaint: Cellulitis Narrative Narrative: Patient is a 44-year-old female presenting to the emergency department for breast cellulitis. Patient states she first noticed the spot on her left lateral breast on . She followed up with her primary care Wednesday who placed her on doxycycline. She states she has been taking this as prescribed. She states that the area of redness was outlined with a marker and it is now spread beyond that. She states that yesterday she went to [place] [facility] to be seen and they discharged her. States that today she went to urgent care and they also discharged her there as well. She denies any fever, chills, nausea or vomiting. Denies any fatigue. States she feels normal. Hx of MRSA in her finger she reports. [facility] Medical History History of alcohol abuse Nausea and vomiting Diarrhea Depression Anxiety Thyroid disease Diabetes Arthritis Fatty liver Back pain Nausea Gastric reflux Smoker On home oxygen therapy COPD (chronic obstructive pulmonary disease) Asthma Shortness of breath on exertion Chronic cough History of edema History of echocardiogram History of Holter monitoring History of irregular heartbeat Hypertension History of trigger finger Bronchitis Asthma Acute bronchitis due to human metapneumovirus Acute respiratory failure with hypoxia Morbid obesity with BMI of 50.0-59.9, adult Hypoxemia Mild intermittent asthma Viral bronchitis Home Medications ???Medication ???Instructions ???Recorded ???Last Taken ???Type atorvastatin 10 mg tablet 10 mg PO QHS 05/24/19 Unknown Hist ory ipratropium 0.5 mg-albuterol 3 mg 3 ml IH Q6H PRN PRN Sob /Or 01/03 Unknown History (2.5 mg base)/3 mL nebulization Wheezing soln furosemide 40 mg tablet 40 mg PO DAILY #5 tabs 10/03/19 Un known Rx metoprolol succinate 25 mg 25 mg PO BID 11/02/19 01/04/23 His tory tablet,extended release 24 hr famotidine 20 mg tablet (Pepcid) 40 mg PO DAILY 11/13/19 01/04/23 H istory levothyroxine 50 mcg capsule 50 mcg PO DAILY 05/15/21 01/04/23 History omeprazole 20 mg capsule,delayed 20 mg PO QHS 05/01/22 01/04/23 His tory release lamotrigine 100 mg tablet 200 mg PO QHS 07/31/22 Unknown His tory potassium chloride 10 mEq 10 meq PO DAILY 07/31/22 Unknown H istory capsule,extended release cetirizine 10 mg capsule 10 mg PO HS #30 caps 02/12/23 Unkn own Rx guaifenesin 1,200 mg tablet, 1,200 mg PO Q12H PRN congestion Unknown Rx extended release 12 hr #60 tabs albuterol sulfate 90 mcg/actuation 2 puff inhalation Q4H PRN PRN Unknown Rx aerosol inhaler Asthma #8.5 grams celecoxib 100 mg capsule 100 mg PO QDAY 11/04/23 Unknown Hi story dulaglutide 0.75 mg/0.5 mL 0.75 mg subcut QWEEK 11/04/23 Unkn own History subcutaneous pen injector (Trulicity) fluticasone furoate 200 1 inh inhalation QDAY #60 ea 11/03 Unknown Rx mcg-vilanterol 25 mcg/dose inhalation powder (Breo Ellipta) montelukast 10 mg tablet 10 mg PO DAILY #30 tabs 12/08/23 U nknown Rx doxycycline hyclate 100 mg tablet 100 mg PO BID #20 tabs 01/04/24 U nknown Rx prednisone 10 mg tablet 10 mg PO QDAY #30 tabs 01/04/24 Un known Rx voriconazole 200 mg tablet 200 mg PO Q12H #60 tabs 02/25/24 U nknown Rx cephalexin 500 mg capsule 500 mg PO Q6 7 days #28 CAPSULES 0 12/25/24 Unknown Rx Allergy/AdvReac Type Severity Reaction Status Date / Time celecoxib (From Celebrex) Allergy PT UNSURE Verified 12/24/24 22:17 OF REACTION codeine Allergy Anaphylaxis Verified 12/24/24 22:17 nirmatrelvir (From Paxlovid) Allergy Vomiting Verified 12/24/24 22:17 propoxyphene napsylate (From Allergy Rash Verified 12/24/24 22:17 Darvocet-N) ritonavir (From Paxlovid) Allergy Vomiting Verified 12/24/24 22:17 Sulfa (Sulfonamide Allergy Anaphylaxis Verified 12/24/24 22:17 Antibiotics) amoxicillin AdvReac Other Verified 12/24/24 22:17 Family History Mother Heart disease Father Hypertension Other Arthritis Cervical cancer Depression Surgical History Hx of tubal ligation Hx of thumb surgery H/O elbow surgery History of carpal tunnel surgery Social History Smoking Status: Current every day smoker tobacco type: cigarettes second hand exposu (more content not included)... Normal [facility] Eosinophil percentageOrdered By: Dianelys Fenton on 12-25-2024 Eosinophils/100 WBC (Bld) 0.5 % 0-5 [facility] Erythrocyte distribution wid th ratioOrdered By: Dianelys Fenton on 12-25-2024 Erythrocyte distribution width (RBC) [Ratio] 14.6 % 11.6-14.6 [facility] Erythrocyte distribution wid th standard deviationOrdered By: Dianelys Fenton on 12-25-2024 Erythrocyte distribution width (RBC) [Ratio] 50.8 fl High 35.1-43.9 [facility] Glomerular filtration rate ( GFR) estimation/1.73 sq m using serum, plasma, or whole bOrdered By: Dianelys Fenton on 12-25-2024 GFR/1.73 sq M.predicted among non-blacks MDRD (S/P/Bld) [Vol rate/Area] 95 mL/min/{1.73_m2} >60 [facility] Comment on above: mL/min/1.73m2 CKD-EP I Creatinine Equation (2020) Hematocrit Auto (Bld) [Volum e fraction]Ordered By: Dianelys Fenton on 12-25-2024 Hematocrit (Bld) [Volume fraction] 44.1 % 37-47 [facility] Hemoglobin measurementOrdere d By: Dianelys Fenton on 12-25-2024 Hemoglobin (Bld) [Mass/Vol] 13.7 g/dL 12.0-15.0 [facility] Immature granulocytes/100 WB C Auto (Bld)Ordered By: Dianelys Fenton on 12-25-2024 Immature granulocytes/100 WBC (Bld) 0.500 % 0.0-0.9 [facility] Comment on above: IG% - Immature Granu locytes (promyelocytes, myelocytes and metamyelocytes) > 1% indicates that a LEFT SHIFT is Present. Lactic Acidon 12-25-2024 Lactate [Moles/Vol] mmol/L Normal 0.0-2.0 [facility] Comment on above: Order Comment: Y Performed By: #### L 100.0100, L500.2500, L503.6005 #### [facility] [address] [place], [place], [id number] Lactic acid measurementOrder ed By: Dianelys Fenton on 12-25-2024 Lactate [Moles/Vol] mmol/L 0.0-2.0 [facility] MCV (mean corpuscular volume ) determinationOrdered By: Dianelys Fenton on 12-25-2024 MCV (RBC) [Entitic vol] 94.6 fL 81-99 [facility] Mean corpuscular hemoglobin (MCH) determinationOrdered By: Dianelys Fenton on 12-25-2024 MCH (RBC) [Entitic mass] 29.4 pg 27.0-32.0 [facility] Mean corpuscular hemoglobin concentration (MCHC) determinationOrdered By: Dianelys Fenton on 12-25-2024 MCHC (RBC) [Mass/Vol] 31.1 g/dL Low 32-36 [facility] Mean platelet volume determi nationOrdered By: Dianelys Fenton on 12-25-2024 Platelet mean volume (Bld) [Entitic vol] 9.1 fL 6.2-12.0 [facility] Monocyte percentageOrdered B y: Dianelys Fenton on 12-25-2024 Monocytes/100 WBC (Bld) 7.0 % 0-10 [facility] Neutrophil percentageOrdered By: Dianelys Fenton on 12-25-2024 Neutrophils/100 WBC (Bld) 66.7 % 47-70 [facility] Nucleated red blood cell per centageOrdered By: Dianelys Fenton on 12-25-2024 Nucleated RBC/100 WBC (Bld) [Ratio] 0 % 0-5 [facility] Platelet countOrdered By: Abad Fenton on 12-25-2024 Platelets (Bld) [#/Vol] 240 10*3/uL 150-450 [facility] Potassium measurement (mass/ volume)Ordered By: Dianelys Fenton on 12-25-2024 Potassium (Unsp spec) [Mass/Vol] 3.9 mmol/L 3.3-5.1 [facility] RBC Auto (Bld) [#/Vol]Ordere d By: Dianelys Fenton on 12-25-2024 RBC (Bld) [#/Vol] 4.66 10*6/uL 4.2-5.4 [facility] Serum creatinine measurement (mass/volume)Ordered By: Dianelys Fenton on 12-25-2024 Creatinine [Mass/Vol] 0.78 mg/dL 0.70-1.20 [facility] Serum glucose measurement (m ass/volume)Ordered By: Dianelys Fenton on 12-25-2024 Glucose [Mass/Vol] 102 mg/dL High 70-99 [facility] Serum or plasma calcium juan urement (mass/volume)Ordered By: Dianelys Fenton on 12-25-2024 Calcium [Mass/Vol] 9.5 mg/dL 7.6-11.0 [facility] Serum or plasma urea nitroge n measurement (mass/volume)Ordered By: Dianelys Fenton on 12-25-2024 Urea nitrogen [Mass/Vol] 14 mg/dL 4-19 [facility] Sodium levelOrdered By: Vince Fenton on 12-25-2024 Sodium [Moles/Vol] 139 mmol/L 133-145 [facility] White blood cell (WBC) count Ordered By: Dianelys Fenton on 12-25-2024 WBC (Bld) [#/Vol] 12.4 10*3/uL High 4.4-11.0 [facility] CNOVon 12-24-2024 CNOV Normal [facility] CBC W Auto Differential pane l (Bld)on 12-22-2024 Basophils (Bld) [#/Vol] 0.04 10*3/uL Normal <0.11 [facility] Comment on above: Order Comment: Speci men Type: BLOOD SPECIMENOrdering Facility: [facility] Address: [address] [place] [address] Performed By: #### 5 7021-8 ####[facility] LABCLIA [id number] [place] [address] [place] Basophils/100 WBC (Bld) 0.4 % Normal [facility] Comment on above: Order Comment: Speci men Type: BLOOD SPECIMENOrdering Facility: [facility] Address: [address] [place] [address] Performed By: #### 5 7021-8 ####[facility] LABCLIA [id number] [place] [address] [place] Differential cell count method Nom (Bld) Auto Normal [facility] Comment on above: Order Comment: Speci men Type: BLOOD SPECIMENOrdering Facility: [facility] Address: [address] [place] [address] Performed By: #### 5 7021-8 ####[facility] LABCLIA [id number] [place] [address] [place] Eosinophils (Bld) [#/Vol] 0.07 10*3/uL Normal <0.46 [facility] Comment on above: Order Comment: Speci men Type: BLOOD SPECIMENOrdering Facility: [facility] Address: [address] [place] [address] Performed By: #### 5 7021-8 ####[facility] LABCLIA [id number] [place] [address] [place] Eosinophils/100 WBC (Bld) 0.7 % Normal [facility] Comment on above: Order Comment: Speci men Type: BLOOD SPECIMENOrdering Facility: [facility] Address: [address] [place] [address] Performed By: #### 5 7021-8 ####[facility] LABCLIA [id number] [place] [address] [place] Erythrocyte distribution width (RBC) [Ratio] 14.7 % Normal 11.5-15.0 [facility] Comment on above: Order Comment: Speci men Type: BLOOD SPECIMENOrdering Facility: [facility] Address: [address] [place] [address] Performed By: #### 5 7021-8 ####[facility] LABCLIA [id number] [place] [address] [place] Hematocrit (Bld) [Volume fraction] 46.5 % High 36.0-46.0 [facility] Comment on above: Order Comment: Speci men Type: BLOOD SPECIMENOrdering Facility: [facility] Address: [address] [place] [address] Performed By: #### 5 7021-8 ####[facility] LABCLIA [id number] [address], [facility] [place] Hemoglobin (Bld) [Mass/Vol] 14.7 g/dL Normal 11.5-15.5 [facility] Comment on above: Order Comment: Speci men Type: BLOOD SPECIMENOrdering Facility: [facility] Address: [address] [place] [address] Performed By: #### 5 7021-8 ####[facility] LABCLIA [id number] [place] [id number] [place] Immature granulocytes (Bld) [#/Vol] 0.04 10*3/uL Normal <0.10 [facility] Comment on above: Order Comment: Speci men Type: BLOOD SPECIMENOrdering Facility: [facility] Address: [address] [place] [address] Performed By: #### 5 7021-8 ####[facility] LABCLIA [id number] [place] [address] [place] Immature granulocytes/100 WBC (Bld) 0.4 % Normal [facility] Comment on above: Order Comment: Speci men Type: BLOOD SPECIMENOrdering Facility: [facility] Address: [address] [place] [address] Performed By: #### 5 7021-8 ####[facility] LABCLIA [id number] [place] [address] [place] Lymphocytes (Bld) [#/Vol] 2.37 10*3/uL Normal 1.00-4.00 [facility] Comment on above: Order Comment: Speci men Type: BLOOD SPECIMENOrdering Facility: [facility] Address: [address] [place] [address] Performed By: #### 5 7021-8 ####[facility] LABCLIA [id number] [place] [id number] [place] Lymphocytes/100 WBC (Bld) 22.9 % Normal [facility] Comment on above: Order Comment: Speci men Type: BLOOD SPECIMENOrdering Facility: [facility] Address: [address] [place] [address] Performed By: #### 5 7021-8 ####[facility] LABCLIA [id number] [place] [address] [place] MCH (RBC) [Entitic mass] 29.9 pg Normal 26.0-34.0 [facility] Comment on above: Order Comment: Speci men Type: BLOOD SPECIMENOrdering Facility: [facility] Address: [address] [place] [address] Performed By: #### 5 7021-8 ####[facility] LABIA [id number] [place] [address] [place] MCHC (RBC) [Mass/Vol] 31.6 g/dL Normal 30.5-36.0 [facility] Comment on above: Order Comment: Speci men Type: BLOOD SPECIMENOrdering Facility: [facility] Address: [address] [place] [address] Performed By: #### 5 7021-8 ####[facility] LABIA [id number] [place] [address] [place] MCV (RBC) [Entitic vol] 94.5 fL Normal 80.0-100.0 [facility] Comment on above: Order Comment: Speci men Type: BLOOD SPECIMENOrdering Facility: [facility] Address: [address] [place] [address] Performed By: #### 5 7021-8 ####[facility] LABIA [id number] [place] [address] [place] Monocytes (Bld) [#/Vol] 0.71 10*3/uL Normal <0.87 [facility] Comment on above: Order Comment: Speci men Type: BLOOD SPECIMENOrdering Facility: [facility] Address: [address] [place] [address] Performed By: #### 5 7021-8 ####[facility] LABIA [id number] [address] [place] Monocytes/100 WBC (Bld) 6.8 % Normal [facility] Comment on above: Order Comment: Speci men Type: BLOOD SPECIMENOrdering Facility: [facility] Address: [address] [place] [address] Performed By: #### 5 7021-8 ####[facility] LABCLIA [id number] [address] [address] [place] Neutrophils (Bld) [#/Vol] 7.14 10*3/uL Normal 1.45-7.50 [facility] Comment on above: Order Comment: Speci men Type: BLOOD SPECIMENOrdering Facility: [facility] Address: [address] [place] [address] Performed By: #### 5 7021-8 ####[facility] LABCLIA [id number] [place] [address] [place] Neutrophils/100 WBC (Bld) 68.8 % Normal [facility] Comment on above: Order Comment: Speci men Type: BLOOD SPECIMENOrdering Facility: [facility] Address: [address] [place] [address] Performed By: #### 5 7021-8 ####[facility] LABCLIA [id number] [place] [address] [place] Nucleated RBC (Bld) [#/Vol] 10*3/uL Normal <0.01 [facility] Comment on above: Order Comment: Speci men Type: BLOOD SPECIMENOrdering Facility: [facility] Address: [address] [place] [address] Performed By: #### 5 7021-8 ####[facility] LABCLIA [id number] [place] [address] [place] Nucleated RBC/100 WBC (Bld) [Ratio] 0.0 /100 WBC Normal [facility] Comment on above: Order Comment: Speci men Type: BLOOD SPECIMENOrdering Facility: [facility] Address: [address] [place] [address] Performed By: #### 5 7021-8 ####[facility] LABCLIA [id number] [address] [place] [address] [place] Platelet mean volume (Bld) [Entitic vol] 10.0 fL Normal 9.0-12.7 [facility] Comment on above: Order Comment: Speci men Type: BLOOD SPECIMENOrdering Facility: [facility] Address: [address] [place] [address] Performed By: #### 5 7021-8 ####[facility] LABIA [id number] [address] [place] [address] [place] Platelets (Bld) [#/Vol] 273 10*3/uL Normal 150-400 [facility] Comment on above: Order Comment: Speci men Type: BLOOD SPECIMENOrdering Facility: [facility] Address: [address] [place] [address] Performed By: #### 5 7021-8 ####[facility] LABIA [id number] [place] [address] [place] RBC (Bld) [#/Vol] 4.92 10*6/uL Normal 3.90-5.20 [facility] Comment on above: Order Comment: Speci men Type: BLOOD SPECIMENOrdering Facility: [facility] Address: [address] [place] [address] Performed By: #### 5 7021-8 ####[facility] LABIA [id number] [address] [address] [place] WBC (Bld) [#/Vol] 10.37 10*3/uL Normal 3.70-11.00 [facility] Comment on above: Order Comment: Speci men Type: BLOOD SPECIMENOrdering Facility: [facility] Address: [address] [place] [address] Performed By: #### 5 7021-8 ####[facility] LABIA [id number] [address] [address] [place] CNOVon 12-22-2024 CNOV Normal [facility] metabolic 2000 panelon 12-22-2024 Albumin [Mass/Vol] 4.1 g/dL Normal 3.9-4.9 [facility] Comment on above: Order Comment: Speci men Type: BLOOD SPECIMENOrdering Facility: [facility] Address: [address] [place] [address] Performed By: #### 2 4323-8 ####[facility] LABCLIA [id number] [address], [facility] [place] ALP [Catalytic activity/Vol] 109 U/L Normal 34-123 [facility] Comment on above: Order Comment: Speci men Type: BLOOD SPECIMENOrdering Facility: [facility] Address: [address] [place] [address] Performed By: #### 2 4323-8 ####[facility] LABCLIA [id number] [place] [id number] [place] ALT [Catalytic activity/Vol] 20 U/L Normal 7-38 [facility] Comment on above: Order Comment: Speci men Type: BLOOD SPECIMENOrdering Facility: [facility] Address: [address] [place] [address] Performed By: #### 2 4323-8 ####[facility] LABCLIA [id number] [place] [id number] [place] Anion gap [Moles/Vol] 13 mmol/L Normal 8-15 [facility] Comment on above: Order Comment: Speci men Type: BLOOD SPECIMENOrdering Facility: [facility] Address: [address] [place] [address] Performed By: #### 2 4323-8 ####[facility] LABCLIA [id number] [address] [address] [place] AST [Catalytic activity/Vol] 21 U/L Normal 13-35 [facility] Comment on above: Order Comment: Speci men Type: BLOOD SPECIMENOrdering Facility: [facility] Address: [address] [place], [place] [address] Performed By: #### 2 4323-8 ####[facility] LABCLIA [id number] [address] [address] [place] Bilirubin [Mass/Vol] 0.3 mg/dL Normal 0.2-1.3 [facility] Comment on above: Order Comment: Speci men Type: BLOOD SPECIMENOrdering Facility: [facility] Address: [address] [place], [place] [address] Performed By: #### 2 4323-8 ####[facility] LABCLIA [id number] [place] [address] [place] Calcium [Mass/Vol] 9.8 mg/dL Normal 8.5-10.2 [facility] Comment on above: Order Comment: Speci men Type: BLOOD SPECIMENOrdering Facility: [facility] Address: [address] [place], [place] [address] Performed By: #### 2 4323-8 ####[facility] LABCLIA [id number] [place] [address] [place] Chloride [Moles/Vol] 103 mmol/L Normal 98-107 [facility] Comment on above: Order Comment: Speci men Type: BLOOD SPECIMENOrdering Facility: [facility] Address: [address] [place], [place] [address] Performed By: #### 2 4323-8 ####[facility] LABCLIA [id number] [place] [address] [place] CO2 [Moles/Vol] 23 mmol/L Normal 22-30 [facility] Comment on above: Order Comment: Speci men Type: BLOOD SPECIMENOrdering Facility: [facility] Address: [address] [place], [place] [address] Performed By: #### 2 4323-8 ####[facility] LABCLIA [id number] [address] [address] [place] Creatinine [Mass/Vol] 0.70 mg/dL Normal 0.58-0.96 [facility] Comment on above: Order Comment: Rashad irwin Type: BLOOD SPECIMENOrdering Facility: [facility] Address: [address] [place] [address] Performed By: #### 2 4323-8 ####[facility] [id number] [place] [id number] [place] eGFRcr SerPlBld CKD-EPI 2020 108 mL/min/1.73m??? Normal >=60 [facility] Comment on above: Order Comment: Rashad irwin Type: BLOOD SPECIMENOrdering Facility: [facility] Address: [address] [place] [address] Result Comment: Jen mated Glomerular Filtration Rate [...] Performed By: #### 2 4323-8 ####[facility] LABIA [id number] [address] [address] [place] Glucose [Mass/Vol] 83 mg/dL Normal 74-99 [facility] Comment on above: Order Comment: Rashad irwin Type: BLOOD SPECIMENOrdering Facility: [facility] Address: [address] [place] [address] Result Comment: The [place] Diabetes Association (ADA) provides guidance for cutoff [...] Standards of Medical Care in Diabetes 2016, [place] [employer] Association. Diabetes Care. 2016.39(Suppl 1). Performed By: #### 2 4323-8 ####[facility] LABCLIA [id number] [address] [address] [place] Potassium [Moles/Vol] 4.4 mmol/L Normal 3.7-5.1 [facility] Comment on above: Order Comment: Speci men Type: BLOOD SPECIMENOrdering Facility: [facility] Address: [address] [place] [address] Performed By: #### 2 4323-8 ####[facility] LABIA [id number] [address] [address] [place] Protein [Mass/Vol] 7.7 g/dL Normal 6.3-8.0 [facility] Comment on above: Order Comment: Speci men Type: BLOOD SPECIMENOrdering Facility: [facility] Address: [address] [place], [place] [address] Performed By: #### 2 4323-8 ####[facility] LABIA [id number] [address] [address] [place] Sodium [Moles/Vol] 139 mmol/L Normal 136-144 [facility] Comment on above: Order Comment: Speci men Type: BLOOD SPECIMENOrdering Facility: [facility] Address: [address] [place] [address] Performed By: #### 2 4323-8 ####[facility] LABIA [id number] [address] [address] [place] Urea nitrogen [Mass/Vol] 9 mg/dL Normal 7-21 [facility] Comment on above: Order Comment: Speci men Type: BLOOD SPECIMENOrdering Facility: [facility] Address: [address] [place] [address] Performed By: #### 2 4323-8 ####[facility] LABIA [id number] [place] [address] [place] HbA1c (Bld)on 12-22-2024 Average glucose Estimated from glycated hemoglobin (Bld) [Mass/Vol] 117 mg/dL Normal [facility] Comment on above: Order Comment: Speci men Type: BLOOD SPECIMENOrdering Facility: [facility] Address: [address] [place] [address] Result Comment: eAG: (Estimated average glucose) is a calculated value from HgbA1c and is representative personal service of the average blood glucose level in the last 2-3 month period. Performed By: #### 5 5454-3 ####[facility]ITAL[facility] [id number] [place] [address] [place] [facility] HbA1c (Bld) [Mass fraction] 5.7 % High 4.3-5.6 [facility] Comment on above: Order Comment: Rashad irwin Type: BLOOD SPECIMENOrdering Facility: [facility] Address: [address] [place] [address] Result Comment: [place] Diabetes Association guidelines indicate that patients with HgbA1c in the range 5.7-6.4% are at increased risk for development of diabetes, and intervention by lifestyle modification may be beneficial. HgbA1c greater or equal to 6.5% is considered diagnostic of diabetes. Performed By: #### 5 5454-3 ####[facility] LABIA [id number] [place] [address] [place] CNOVon 12-21-2024 CNOV Normal [facility] CNPNon 12-21-2024 CNPN Normal [facility] CNOVon 11-20-2024 CNOV Normal [facility] CNPTOUTREACHon 10-31-2024 CNPTOUTREACH Normal [facility] CNOVon 10-20-2024 CNOV Normal [facility] CNOVon 10-17-2024 CNOV Normal [facility] .Auto Diffon 10-15-2024 Basophil, Absolute 0.0 10 3/mcL Normal 0.0-0.3 [facility] Comment on above: Performed By: #### A DIFF, ANEU, BMP, TROPHS, MDW, GFR, CBC #### [address] [address] Basophils/100 WBC (Bld) 0.4 % Normal 0.0-2.5 [facility] Comment on above: Performed By: #### A DIFF, ANEU, BMP, TROPHS, MDW, GFR, CBC #### [address] [address] Eosinophil, Absolute 0.1 10 3/mcL Normal 0.0-0.7 [facility] Comment on above: Performed By: #### A DIFF, ANEU, BMP, TROPHS, MDW, GFR, CBC #### [address] [address] Eosinophils/100 WBC (Bld) 0.6 % Normal 0.0-6.0 [facility] Comment on above: Performed By: #### A DIFF, ANEU, BMP, TROPHS, MDW, GFR, CBC #### [address] [address] Lymphocyte, Absolute 3.4 10 3/mcL Normal 0.9-4.3 [facility] Comment on above: Performed By: #### A DIFF, ANEU, BMP, TROPHS, MDW, GFR, CBC #### [address] [address] Lymphocytes/100 WBC (Bld) 29.7 % Normal 20.0-40.0 [facility] Comment on above: Performed By: #### A DIFF, ANEU, BMP, TROPHS, MDW, GFR, CBC #### [address] [address] Monocyte, Absolute 0.7 10 3/mcL Normal 0.1-1.4 [facility] Comment on above: Performed By: #### A DIFF, ANEU, BMP, TROPHS, MDW, GFR, CBC #### [address] [place] [address] Monocytes/100 WBC (Bld) 6.5 % Normal 2.0-13.0 [facility] Comment on above: Performed By: #### A DIFF, ANEU, BMP, TROPHS, MDW, GFR, CBC #### [address] [address] Neutrophils/100 WBC (Bld) 62.8 % Normal 50.0-75.0 [facility] Comment on above: Performed By: #### A DIFF, ANEU, BMP, TROPHS, MDW, GFR, CBC #### [address] [address] .GFRon 10-15-2024 Estimated Glomerular Filtration Rate 110 ml/min/1.73sqm Normal [facility] Comment on above: Result Comment: Stages of [...] ANEU, BMP, TROPHS, MDW, GFR, CBC #### [address] [address] .MDWon 10-15-2024 Monocyte Distribution Width 16.00 Normal 0.00-20.00 [facility] Comment on above: Result Comment: For ED adult patients suspected of sepsis, MDW<=20.0 does not rule out sepsis or risk of sepsis Performed By: #### A DIFF, ANEU, BMP, TROPHS, MDW, GFR, CBC #### [address] [address] .NEUABSon 10-15-2024 Neutrophil, Absolute 7.1 10 3/mcL Normal 2.3-8.1 [facility] Comment on above: Performed By: #### A DIFF, ANEU, BMP, TROPHS, MDW, GFR, CBC #### [address] [address] BMPon 10-15-2024 BUN/Creatinine Ratio 20 ratio Normal 7-27 [facility] Comment on above: Performed By: #### A DIFF, ANEU, BMP, TROPHS, MDW, GFR, CBC #### [address] [address] Calcium [Mass/Vol] 9.2 mg/dL Normal 8.4-10.2 [facility] Comment on above: Performed By: #### A DIFF, ANEU, BMP, TROPHS, MDW, GFR, CBC #### [address] [address] Chloride [Moles/Vol] 101 mmol/L Normal 98-107 [facility] Comment on above: Performed By: #### A DIFF, ANEU, BMP, TROPHS, MDW, GFR, CBC #### [address] [address] CO2 [Moles/Vol] 27 mmol/L Normal 22-29 [facility] Comment on above: Performed By: #### A DIFF, ANEU, BMP, TROPHS, MDW, GFR, CBC #### [address] [address] Creatinine [Mass/Vol] 0.65 mg/dL Normal 0.51-0.95 [facility] Comment on above: Performed By: #### A DIFF, ANEU, BMP, TROPHS, MDW, GFR, CBC #### [address] [address] Electrolyte Balance 4.0 mEq/L Normal 4.0-15.0 [facility] Comment on above: Performed By: #### A DIFF, ANEU, BMP, TROPHS, MDW, GFR, CBC #### [address] [address] Glucose [Mass/Vol] 93 mg/dL Normal 70-105 [facility] Comment on above: Performed By: #### A DIFF, ANEU, BMP, TROPHS, MDW, GFR, CBC #### [address] [address] Potassium [Moles/Vol] 3.8 mmol/L Normal 3.5-5.1 [facility] Comment on above: Performed By: #### A DIFF, ANEU, BMP, TROPHS, MDW, GFR, CBC #### [place] [address] Sodium [Moles/Vol] 132 mmol/L Low 136-145 [facility] Comment on above: Performed By: #### A DIFF, ANEU, BMP, TROPHS, MDW, GFR, CBC #### [place] [address] Urea nitrogen [Mass/Vol] 13 mg/dL Normal 7-18 [facility] Comment on above: Performed By: #### A DIFF, ANEU, BMP, TROPHS, MDW, GFR, CBC #### [address] [address] CBCon 10-15-2024 Erythrocyte distribution width (RBC) [Ratio] 15.0 % Normal 11.5-15.5 [facility] Comment on above: Performed By: #### A DIFF, ANEU, BMP, TROPHS, MDW, GFR, CBC #### [place] [address] Hematocrit (Bld) [Volume fraction] 44.8 % Normal 34.0-46.0 [facility] Comment on above: Performed By: #### A DIFF, ANEU, BMP, TROPHS, MDW, GFR, CBC #### [address] [address] Hgb 15.1 G/dL Normal 12.0-16.0 [facility] Comment on above: Performed By: #### A DIFF, ANEU, BMP, TROPHS, MDW, GFR, CBC #### [place] [address] MCH (RBC) [Entitic mass] 30.5 pg Normal 27.0-33.0 [facility] Comment on above: Performed By: #### A DIFF, ANEU, BMP, TROPHS, MDW, GFR, CBC #### [address] [address] MCHC 33.7 G/dL Normal 32.0-36.0 [facility] Comment on above: Performed By: #### A DIFF, ANEU, BMP, TROPHS, MDW, GFR, CBC #### [address] [address] MCV (RBC) [Entitic vol] 90.5 fL Normal 80.0-99.0 [facility] Comment on above: Performed By: #### A DIFF, ANEU, BMP, TROPHS, MDW, GFR, CBC #### [place] [id number] Platelet 248 10 3/mcL Normal 150-450 [facility] Comment on above: Performed By: #### A DIFF, ANEU, BMP, TROPHS, MDW, GFR, CBC #### [place] [address] Platelet mean volume (Bld) [Entitic vol] 7.5 fL Normal 6.6-10.5 [facility] Comment on above: Performed By: #### A DIFF, ANEU, BMP, TROPHS, MDW, GFR, CBC #### [address] [address] RBC 4.95 10 6/mcL Normal 4.10-5.30 [facility] Comment on above: Performed By: #### A DIFF, ANEU, BMP, TROPHS, MDW, GFR, CBC #### [address] [address] WBC 11.3 10 3/mcL High 4.5-10.8 [facility] Comment on above: Performed By: #### A DIFF, ANEU, BMP, TROPHS, MDW, GFR, CBC #### [address] [address] [address] ANGIOGRAPHY CHEST W/CONTR Marcio 10-15-2024 CT [...] 10/15/2024 1:14:40 AM Ordering Provider: DAVID Aranda [facility]dered By: SYSTEM SYSTEM on 10-15-2024 Basophils [...] (Bld) [#/Vol] 4.95 106/mcL Normal 4.10 - 5.30 10^6/mcL AO Workflow SS Sodium [Moles/Vol] 132 mmol/L Low 136 - 145 mmol/L AO ADM SS Troponin I.cardiac DL <= 0.01 ng/mL [Mass/Vol] 4 ng/L Normal 0 - 51 ng/L AO ADM SS Comment on above: Interpretive Data: H igh Sensitive Troponin I Reference Ranges: Female: 0-51 ng/L Male: 0-76 ng/L Testing performed on Nimaya using a homogeneous sandwich chemiluminescent immunoassay based on Interior Define technology. Urea nitrogen [Mass/Vol] 13 mg/dL Normal 7 - 18 mg/dL AO ADM SS Urea nitrogen/Creatinine [Mass ratio] 20 ratio Normal 7 - 27 ratio AO ADM SS WBC (Bld) [#/Vol] 11.3 103/mcL High 4.5 - 10.8 10^3/mcL AO Workflow SS PBNPon 10-15-2024 Natriuretic peptide B (Bld) [Mass/Vol] 27 pg/mL Normal 0-125 [facility] Comment on above: Result Comment: NT-p roBNP results of less than 300 pg/mL effectively rules out acute congestive heart failure with 99% negative predictive value. Performed By: #### P BNP #### [place] [address] [place], [place] [address] TROPHSon 10-15-2024 High Sensitivity Troponin I 4 ng/L Normal 0-51 [facility] Comment on above: Result Comment: High Sensitive Troponin I Reference Ranges: Female: 0-51 ng/L Male: 0-76 ng/L Testing performed on Nimaya using a homogeneous sandwich chemiluminescent immunoassay based on Interior Define technology. Performed By: #### A DIFF, ANEU, BMP, TROPHS, MDW, GFR, CBC #### [place] [address] [place], [place] [address] Bacteria Spec Resp Culton Bacteria identified Respiratory culture Nom (Unsp spec) ORGANISM ID: 1 Moderate normal respiratory wing GRAM STAIN: Many Gram positive cocci Rare Polymorphonuclear leukocytes Abnormal [facility] Comment on above: Performed By: #### 3 2355-0 ####[facility] LABCLIA [id number] [place] [address] [place] ECG COMPLETEon 10-12-2024 Atrial Rate 77 BPM [facility] Calculated P [place] 46 degrees [facility] Calculated R [place] 71 degrees [facility] Calculated T [place] 61 degrees [facility] P-R Interval 178 ms [facility] QRS Duration 68 ms [facility] QT Interval 366 ms [facility] QTC Calculation (Bazett) 414 ms [facility] Ventricular Rate 77 BPM [facility] NORMAL SINUS RHYTHM NONSPECIFIC ST ABNORMALITY ABNORMAL ECG Confirmed by MD DONNA, LOUISE ([id number]) on 10/12/2024 3:54:51 PM [facility] NAME : DARREN REINOSO PID : [id number] : 1980 Gender : Female Race : ORD : [id number] Procedure Date : Oct 11 2024 11:38:05 Edit Date : Oct 12 2024 15:54:55 Diagnosis: NORMAL SINUS RHYTHM NONSPECIFIC ST ABNORMALITY ABNORMAL ECG Confirmed by MD THOMPSON QARAB ([id number]) on 10/12/2024 3:54:51 PM Test Reason : R07.9 Chest pain, unspecified type Location : 185 : WO Overread By : MD THOMPSON QARAB Edited By : MD THOMPSON QARAB Referred By : , Acquired by : [id number], [facility] CBC W Auto Differential pane l (Bld)on 10-11-2024 Basophils (Bld) [#/Vol] 0.03 10*3/uL [facility] Basophils/100 WBC (Bld) 0.3 % [facility] Differential cell count method Nom (Bld) Auto [facility] Eosinophils (Bld) [#/Vol] 0.09 10*3/uL [facility] Eosinophils/100 WBC (Bld) 1 % [facility] Erythrocyte distribution width (RBC) [Ratio] 14 % 11.5 - 15.0 % [facility] Hematocrit (Bld) [Volume fraction] 44.4 % 36.0 - 46.0 % [facility] Hemoglobin (Bld) [Mass/Vol] 14 g/dL 11.5 - 15.5 g/dL [facility] Immature granulocytes (Bld) [#/Vol] 0.05 10*3/uL [facility] Immature granulocytes/100 WBC (Bld) 0.5 % [facility] Lymphocytes (Bld) [#/Vol] 2.51 10*3/uL [facility] Lymphocytes/100 WBC (Bld) 26.7 % [facility] MCH (RBC) [Entitic mass] 29.6 pg 26.0 - 34.0 pg [facility] MCHC (RBC) [Mass/Vol] 31.5 g/dL 30.5 - 36.0 g/dL [facility] MCV (RBC) [Entitic vol] 93.9 fL 80.0 - 100.0 fL [facility] Monocytes (Bld) [#/Vol] 0.61 10*3/uL [facility] Monocytes/100 WBC (Bld) 6.5 % [facility] Neutrophils (Bld) [#/Vol] 6.1 10*3/uL [facility] Neutrophils/100 WBC (Bld) 65 % [facility] Nucleated RBC (Bld) [#/Vol] NINF [facility] Nucleated RBC/100 WBC (Bld) [Ratio] 0 % /100 WBC [facility] Platelet mean volume (Bld) [Entitic vol] 10 fL 9.0 - 12.7 fL [facility] Platelets (Bld) [#/Vol] 254 10*3/uL [facility] RBC (Bld) [#/Vol] 4.73 10*6/uL 3.90 - 5.20 m/uL [facility] WBC (Bld) [#/Vol] 9.39 10*3/uL [facility] Basophils (Bld) [#/Vol] 0.03 10*3/uL Normal <0.11 [facility] Comment on above: Order Comment: Speci men Type: BLOOD SPECIMENOrdering Facility: [facility] Address: [address] [place] [address] Performed By: #### 5 7021-8 ####[facility] LABCLIA [id number] [place] [address] [place] Basophils/100 WBC (Bld) 0.3 % Normal [facility] Comment on above: Order Comment: Speci men Type: BLOOD SPECIMENOrdering Facility: [facility] Address: [address] [place] [address] Performed By: #### 5 7021-8 ####[facility] LABCLIA [id number] [place] [address] [place] Differential cell count method Nom (Bld) Auto Normal [facility] Comment on above: Order Comment: Speci men Type: BLOOD SPECIMENOrdering Facility: [facility] Address: [address] [place] [address] Performed By: #### 5 7021-8 ####[facility] LABCLIA [id number] [place] [address] [place] Eosinophils (Bld) [#/Vol] 0.09 10*3/uL Normal <0.46 [facility] Comment on above: Order Comment: Speci men Type: BLOOD SPECIMENOrdering Facility: [facility] Address: [address] [place] [address] Performed By: #### 5 7021-8 ####[facility] LABCLIA [id number] [facility] [place] [address] [place] Eosinophils/100 WBC (Bld) 1.0 % Normal [facility] Comment on above: Order Comment: Speci men Type: BLOOD SPECIMENOrdering Facility: [facility] Address: [address] [place] [address] Performed By: #### 5 7021-8 ####[facility] LABIA [id number] [address], [place] [address] [place] Erythrocyte distribution width (RBC) [Ratio] 14.0 % Normal 11.5-15.0 [facility] Comment on above: Order Comment: Speci men Type: BLOOD SPECIMENOrdering Facility: [facility] Address: [address] [place] [address] Performed By: #### 5 7021-8 ####[facility] LABIA [id number] [address] [place] Hematocrit (Bld) [Volume fraction] 44.4 % Normal 36.0-46.0 [facility] Comment on above: Order Comment: Speci men Type: BLOOD SPECIMENOrdering Facility: [facility] Address: [address] [place] [address] Performed By: #### 5 7021-8 ####[facility] LABIA [id number] [place] [address] [place] Hemoglobin (Bld) [Mass/Vol] 14.0 g/dL Normal 11.5-15.5 [facility] Comment on above: Order Comment: Speci men Type: BLOOD SPECIMENOrdering Facility: [facility] Address: [address] [place] [address] Performed By: #### 5 7021-8 ####[facility] LABCLIA [id number] [place] [address] [place] Immature granulocytes (Bld) [#/Vol] 0.05 10*3/uL Normal <0.10 [facility] Comment on above: Order Comment: Speci men Type: BLOOD SPECIMENOrdering Facility: [facility] Address: [address] [place] [address] Performed By: #### 5 7021-8 ####[facility] LABCLIA [id number] [address] [place] Immature granulocytes/100 WBC (Bld) 0.5 % Normal [facility] Comment on above: Order Comment: Speci men Type: BLOOD SPECIMENOrdering Facility: [facility] Address: [address] [place] [address] Performed By: #### 5 7021-8 ####[facility] LABIA [id number] [place] [address] [place] Lymphocytes (Bld) [#/Vol] 2.51 10*3/uL Normal 1.00-4.00 [facility] Comment on above: Order Comment: Speci men Type: BLOOD SPECIMENOrdering Facility: [facility] Address: [address] [place] [address] Performed By: #### 5 7021-8 ####[facility] LABCLIA [id number] [place] [id number] [place] Lymphocytes/100 WBC (Bld) 26.7 % Normal [facility] Comment on above: Order Comment: Speci men Type: BLOOD SPECIMENOrdering Facility: [facility] Address: [address] [place] [address] Performed By: #### 5 7021-8 ####[facility] LABCLIA [id number] [place] [id number] [place] MCH (RBC) [Entitic mass] 29.6 pg Normal 26.0-34.0 [facility] Comment on above: Order Comment: Speci men Type: BLOOD SPECIMENOrdering Facility: [facility] Address: [address] [place] [address] Performed By: #### 5 7021-8 ####[facility] LABCLIA [id number] [place] [address] [place] MCHC (RBC) [Mass/Vol] 31.5 g/dL Normal 30.5-36.0 [facility] Comment on above: Order Comment: Speci men Type: BLOOD SPECIMENOrdering Facility: [facility] Address: [address] [place] [address] Performed By: #### 5 7021-8 ####[facility] LABIA [id number] [place] [address] [place] MCV (RBC) [Entitic vol] 93.9 fL Normal 80.0-100.0 [facility] Comment on above: Order Comment: Speci men Type: BLOOD SPECIMENOrdering Facility: [facility] Address: [address] [place] [address] Performed By: #### 5 7021-8 ####[facility] LABIA [id number] [place] [address] [place] Monocytes (Bld) [#/Vol] 0.61 10*3/uL Normal <0.87 [facility] Comment on above: Order Comment: Speci men Type: BLOOD SPECIMENOrdering Facility: [facility] Address: [address] [place] [address] Performed By: #### 5 7021-8 ####[facility] LABCLIA [id number] [address] [place] Monocytes/100 WBC (Bld) 6.5 % Normal [facility] Comment on above: Order Comment: Speci men Type: BLOOD SPECIMENOrdering Facility: [facility] Address: [address] [place] [address] Performed By: #### 5 7021-8 ####[facility] LABCLIA [id number] [address], [place] [address] [place] Neutrophils (Bld) [#/Vol] 6.10 10*3/uL Normal 1.45-7.50 [facility] Comment on above: Order Comment: Speci men Type: BLOOD SPECIMENOrdering Facility: [facility] Address: [address] [place] [address] Performed By: #### 5 7021-8 ####[facility] LABCLIA [id number] [place] [address] [place] Neutrophils/100 WBC (Bld) 65.0 % Normal [facility] Comment on above: Order Comment: Speci men Type: BLOOD SPECIMENOrdering Facility: [facility] Address: [address] [place] [address] Performed By: #### 5 7021-8 ####[facility] LABCLIA [id number] [address], [place] [address] [place] Nucleated RBC (Bld) [#/Vol] 10*3/uL Normal <0.01 [facility] Comment on above: Order Comment: Speci men Type: BLOOD SPECIMENOrdering Facility: [facility] Address: [address] [place] [address] Performed By: #### 5 7021-8 ####[facility] LABCLIA [id number] [facility] [address], [facility] [place] Nucleated RBC/100 WBC (Bld) [Ratio] 0.0 /100 WBC Normal [facility] Comment on above: Order Comment: Speci men Type: BLOOD SPECIMENOrdering Facility: [facility] Address: [address] [place] [address] Performed By: #### 5 7021-8 ####[facility] LABCLIA [id number] [place] [address] [place] Platelet mean volume (Bld) [Entitic vol] 10.0 fL Normal 9.0-12.7 [facility] Comment on above: Order Comment: Speci men Type: BLOOD SPECIMENOrdering Facility: [facility] Address: [address] [place] [address] Performed By: #### 5 7021-8 ####[facility] LABIA [id number] [place] [address] [place] Platelets (Bld) [#/Vol] 254 10*3/uL Normal 150-400 [facility] Comment on above: Order Comment: Speci men Type: BLOOD SPECIMENOrdering Facility: [facility] Address: [address] [place] [address] Performed By: #### 5 7021-8 ####[facility] LABIA [id number] [place] [address] [place] RBC (Bld) [#/Vol] 4.73 10*6/uL Normal 3.90-5.20 [facility] Comment on above: Order Comment: Speci men Type: BLOOD SPECIMENOrdering Facility: [facility] Address: [address] [place] [address] Performed By: #### 5 7021-8 ####[facility] LABIA [id number] [place] [address] [place] WBC (Bld) [#/Vol] 9.39 10*3/uL Normal 3.70-11.00 [facility] Comment on above: Order Comment: Speci men Type: BLOOD SPECIMENOrdering Facility: [facility] Address: [address] [place] [address] Performed By: #### 5 7021-8 ####[facility] LABCLIA [id number] [place] [id number] [place] CNOVon 10-11-2024 CNOV Normal [facility] metabolic 2000 panelon 10-11-2024 Albumin [Mass/Vol] 3.9 g/dL 3.9 - 4.9 g/dL [facility] ALP [Catalytic activity/Vol] 100 U/L 34 - 123 U/L [facility] ALT [Catalytic activity/Vol] 15 U/L 7 - 38 U/L [facility] Anion gap [Moles/Vol] 13 mmol/L 8 - 15 mmol/L [facility] AST [Catalytic activity/Vol] 13 U/L 13 - 35 U/L [facility] Bilirubin [Mass/Vol] 0.2 mg/dL 0.2 - 1 .3 mg/dL [facility] Calcium [Mass/Vol] 9.4 mg/dL 8.5 - 10. 2 mg/dL [facility] Chloride [Moles/Vol] 105 mmol/L 98 - 10 7 mmol/L [facility] CO2 [Moles/Vol] 22 mmol/L 22 - 30 mmol/L [facility] Creatinine [Mass/Vol] 0.62 mg/dL 0.58 - 0.96 mg/dL [facility] GFR/1.73 sq M.predicted among non-blacks MDRD (S/P/Bld) [Vol rate/Area] 111 mL/min/{1.73_m2} - PINF [facility] Comment on above: Estimated Glomerular Filtration Rate [...] 109 mg/dL High 74 - 99 mg/dL [facility] Comment on above: The [place] Diab[employer] Association (ADA) provides guidance for [...] Standards of Medical Care in Diabetes 2016, [place] [employer] Association. Diabetes Care. 2016.39(Suppl 1). Potassium [Moles/Vol] 4 mmol/L 3.7 - 5.1 mmol/L [facility] Protein [Mass/Vol] 7.2 g/dL 6.3 - 8.0 g/dL [facility] Sodium [Moles/Vol] 140 mmol/L 136 - 144 mmol/L [facility] Urea nitrogen [Mass/Vol] 10 mg/dL 7 - 21 mg/dL [facility] Albumin [Mass/Vol] 3.9 g/dL Normal 3.9-4.9 [facility] Comment on above: Order Comment: Speci men Type: BLOOD SPECIMENOrdering Facility: [facility] Address: [address] [place] [address] Performed By: #### 2 4323-8, 37744-4, 52117-0, 6-3 ####[facility] LABIA [id number] [place] [address] [place] ALP [Catalytic activity/Vol] 100 U/L Normal 34-123 [facility] Comment on above: Order Comment: Speci men Type: BLOOD SPECIMENOrdering Facility: [facility] Address: [address] [place] [address] Performed By: #### 2 4323-8, 30776-7, 05966-8, 6-3 ####[facility] LABIA [id number] [place] [address] [place] ALT [Catalytic activity/Vol] 15 U/L Normal 7-38 [facility] Comment on above: Order Comment: Speci men Type: BLOOD SPECIMENOrdering Facility: [facility] Address: [address] [place] [address] Performed By: #### 2 4323-8, 76331-2, 35679-2, 6-3 ####[facility] LABIA [id number] [place] [id number] [place] Anion gap [Moles/Vol] 13 mmol/L Normal 8-15 [facility] Comment on above: Order Comment: Speci men Type: BLOOD SPECIMENOrdering Facility: [facility] Address: [address] [place] [address] Performed By: #### 2 4323-8, 04136-3, 83194-1, 6-3 ####[facility] LABCLIA [id number] [place] [id number] [place] AST [Catalytic activity/Vol] 13 U/L Normal 13-35 [facility] Comment on above: Order Comment: Speci men Type: BLOOD SPECIMENOrdering Facility: [facility] Address: [address] [place] [address] Performed By: #### 2 4323-8, 91535-6, , 6-3 ####[facility] LABCLIA [id number] [place] [address] [place] Bilirubin [Mass/Vol] 0.2 mg/dL Normal 0.2-1.3 [facility] Comment on above: Order Comment: Speci men Type: BLOOD SPECIMENOrdering Facility: [facility] Address: [address] [place] [address] Performed By: #### 2 4323-8, 36359-2, , 6-3 ####[facility] LABCLIA [id number] [place] [id number] [place] Calcium [Mass/Vol] 9.4 mg/dL Normal 8.5-10.2 [facility] Comment on above: Order Comment: Speci men Type: BLOOD SPECIMENOrdering Facility: [facility] Address: [address] [place], [place] [address] Performed By: #### 2 4323-8, 92715-6, 28021-5, 6-3 ####[facility] LABCLIA [id number] [place] [id number] [place] Chloride [Moles/Vol] 105 mmol/L Normal 98-107 [facility] Comment on above: Order Comment: Speci men Type: BLOOD SPECIMENOrdering Facility: [facility] Address: [address] [place] [address] Performed By: #### 2 4323-8, 06130-8, 48975-0, 3016-3 ####[facility] LABIA [id number] [place] [address] [place] CO2 [Moles/Vol] 22 mmol/L Normal 22-30 [facility] Comment on above: Order Comment: Speci men Type: BLOOD SPECIMENOrdering Facility: [facility] Address: [address] [place] [address] Performed By: #### 2 4323-8, 06860-0, 28599-2, 6-3 ####[facility] LABIA [id number] [place] [address] [place] Creatinine [Mass/Vol] 0.62 mg/dL Normal 0.58-0.96 [facility] Comment on above: Order Comment: Speci men Type: BLOOD SPECIMENOrdering Facility: [facility] Address: [address] [place] [address] Performed By: #### 2 4323-8, 21235-7, 55729-1, 6-3 ####[facility] [id number] [place] [address] [place] Creatinine and Glomerular filtration rate.predicted panel (S/P/Bld) 111 mL/min/1.73m??? Normal >=60 [facility] Comment on above: Order Comment: Speci men Type: BLOOD SPECIMENOrdering Facility: [facility] Address: [address] [place] [address] Result Comment: Jen mated Glomerular Filtration Rate [...] actual GFR. Performed By: #### 2 4323-8, 18387-4, , 3015-3 ####[facility] LABCLIA [id number] [facility] [address] [place] [address] [place] Glucose [Mass/Vol] 109 mg/dL High 74-99 [facility] Comment on above: Order Comment: Rashad irwin Type: BLOOD SPECIMENOrdering Facility: [facility] Address: [address] [place] [id number] Result Comment: The [place] Diabetes Association (ADA) provides guidance for cutoff [...] Standards of Medical Care in Diabetes 2016, [place] [employer] Association. Diabetes Care. 2016.39(Suppl 1). Performed By: #### 2 4323-8, 76932-1, , 3 ####[facility] LABCLIA [id number] [facility]China[facility] [address] [address] [place] Potassium [Moles/Vol] 4.0 mmol/L Normal 3.7-5.1 [facility] Comment on above: Order Comment: Rashad irwin Type: BLOOD SPECIMENOrdering Facility: [facility] Address: [address] [place] [address] Performed By: #### 2 4323-8, 75480-4, , 3015-3 ####[facility] LABCLIA [id number] [facility] [address] [place] [address] [place] Protein [Mass/Vol] 7.2 g/dL Normal 6.3-8.0 [facility] Comment on above: Order Comment: Speci men Type: BLOOD SPECIMENOrdering Facility: [facility] Address: [address] [place] [address] Performed By: #### 2 4323-8, 49273-8, 85748-1, 3016-3 ####[facility] LABCLIA [id number] [place] [address] [place] Sodium [Moles/Vol] 140 mmol/L Normal 136-144 [facility] Comment on above: Order Comment: Speci men Type: BLOOD SPECIMENOrdering Facility: [facility] Address: [address] [place] [address] Performed By: #### 2 4323-8, 42326-5, 96916-4, 3016-3 ####[facility] LABIA [id number] [place] [address] [place] Urea nitrogen [Mass/Vol] 10 mg/dL Normal 7-21 [facility] Comment on above: Order Comment: Speci men Type: BLOOD SPECIMENOrdering Facility: [facility] Address: [address] [place] [address] Performed By: #### 2 4323-8, 76129-5, 41884-5, 3016-3 ####[facility] LABIA [id number] [place] [address] [place] D dimer FEU PPP-mCncon 10-11 Fibrin D-dimer FEU (PPP) [Mass/Vol] 910 ng/mL FEU High <500 [facility] Comment on above: Order Comment: Speci men Type: BLOOD SPECIMENOrdering Facility: [facility] Address: [address] [place] [address] Result Comment: Froz en Plasma Aliquot Performed By: #### 4 8065-7 ####[facility] LABCLIA [id number] [address] [address] [place] D-DIMEROrdered By: Elizabeth orona on 10-11-2024 Fibrin D-dimer FEU (PPP) [Mass/Vol] 910 High NINF [facility] Comment on above: Frozen Plasma Aliquo t ECG COMPLETEon 10-11-2024 ECG COMPLETE Normal [facility] Fibrin D-dimer FEU (PPP) [Ma ss/Vol]Ordered By: Elizabeth Mcgill on 10-11-2024 Interpretation and review of laboratory results Abnormal [facility] 500 ng/mL FEU is the D Dimer [...] et al. Odette Int Med 2016 165:253. [facility] Lipid 1996 panelon Cholesterol [Mass/Vol] 243 mg/dL High NINF - 200 mg/dL [facility] Comment on above: <200 mg/dL, Desirabl e 200-239 mg/dL, Borderline high >239 mg/dL, High Cholesterol in HDL [Mass/Vol] 54 mg/dL 39 - PINF mg/dL [facility] Comment on above: 40-59 mg/dL, Accepta ble >59 mg/dL, High: Negative risk factor for coronary heart disease <40 mg/dL, Low: Positive risk factor for coronary heart disease Cholesterol in LDL [Mass/Vol] 154 mg/dL High NINF - 100 mg/dL [facility] Comment on above: <100 mg/dL, Optimal 100-129 mg/dL, Near optimal/above optimal 130-159 mg/dL, Borderline high 160-189 mg/dL, High >189 mg/dL, Very high Secondary prevention optimal LDL Cholesterol levels are recommended to be <70 mg/dL LDL cholesterol is calculated using the Hernández-NIH equation. Cholesterol in LDL/Cholesterol in HDL [Mass ratio] 2.85 {ratio} High NINF - 2.54 [facility] Comment on above: Reference: 1. National Cholesterol Education Program ATP III Guideline At-A-Glance Quick Desk Reference: National Heart, Lung, and Blood [place]. National Institutes of Health. 2001: NIH Publication No. 01-3305. 2. An International Atherosclerosis Society position paper: global recommendations for the management of dyslipidemia: executive summary, Atherosclerosis. 2014: 232(2):410-413. Cholesterol in VLDL [Mass/Vol] 37 mg/dL High NINF - 30 mg/dL [facility] Cholesterol non HDL [Mass/Vol] 189 mg/dL High NINF - 130 mg/dL [facility] Comment on above: <130 mg/dL, Optimal 130-159 mg/dL, Near optimal/above optimal 160-189 mg/dL, Borderline high 190-219 mg/dL, High >219 mg/dL, Very high Secondary prevention optimal non HDL Cholesterol levels are recommended to be <100 mg/dL Cholesterol.total/Chol esterol in HDL [Mass ratio] 4.5 {ratio} NINF - 5.10 [facility] Fasting Time 12 hrs [facility] Triglyceride [Mass/Vol] 194 mg/dL High NINF - 150 mg/dL [facility] Comment on above: <150 mg/dL, Normal 150-199 mg/dL, Borderline high 200-499 mg/dL, High >499 mg/dL, Very high Cholesterol [Mass/Vol] 243 mg/dL High <200 Cl [facility] Comment on above: Order Comment: Speci men Type: BLOOD SPECIMENOrdering Facility: [facility] Address: [address] [place] [address] Result Comment: <200 mg/dL, Desirable 200-239 mg/dL, Borderline high>239 mg/dL, High Performed By: #### 2 4323-8, 62237-9, , 3015-07 ####[facility] LABCLIA [id number] [address] [address] [place] Cholesterol in HDL [Mass/Vol] 54 mg/dL Normal >39 [facility] Comment on above: Order Comment: Surekhai men Type: BLOOD SPECIMENOrdering Facility: [facility] Address: [address] [place] [address] Result Comment: 40-5 9 mg/dL, Acceptable>59 mg/dL, High: Negative risk factor for coronary heart disease<40 mg/dL, Low: Positive risk factor for coronary heart disease Performed By: #### 2 4323-8, 62403-8, , 3015-07 ####[facility] LABIA [id number] [address] [address] [place] Cholesterol in LDL [Mass/Vol] 154 mg/dL High <100 [facility] Comment on above: Order Comment: Speci men Type: BLOOD SPECIMENOrdering Facility: [facility] Address: [address] [place] [address] Result Comment: <100 mg/dL, Optimal 100-129 mg/dL, Near optimal/above optimal 130-159 mg/dL, Borderline high 160-189 mg/dL, High>189 mg/dL, Very highSecondary prevention optimal LDL Cholesterol levels are recommended to be <70 mg/dLLDL cholesterol is calculated using the Hernández-NIH equation. Performed By: #### 2 4323-8, 45466-2, , 3015-07 ####[facility] [facility] LABIA [id number] [address] [address] [place] Cholesterol in LDL/Cholesterol in HDL [Mass ratio] 2.85 {ratio} High <2.54 [facility] Comment on above: Order Comment: Speci men Type: BLOOD SPECIMENOrdering Facility: [facility] Address: [address] [place] [address] Result Comment: Refe rence:1. National Cholesterol Education Program ATP III Guideline At-A-Glance Quick Desk Reference: National Heart, Lung, and Blood [place]. National Institutes of Health. 2001: NIH Publication No. 01-3305.2. An International Atherosclerosis Society position paper: global recommendations for the management of dyslipidemia: executive summary, Atherosclerosis. 2014: 232(2):410-413. Performed By: #### 2 4323-8, 22212-6, 72819-0, 6-3 ####[facility] LABCLIA [id number] [address] [address] [place] Cholesterol in VLDL [Mass/Vol] 37 mg/dL High <30 [facility] Comment on above: Order Comment: Speci men Type: BLOOD SPECIMENOrdering Facility: [facility] Address: [address] [place] [address] Performed By: #### 2 4323-8, 27078-1, , 6-3 ####[facility] LABCLIA [id number] [address] [address] [place] Cholesterol non HDL [Mass/Vol] 189 mg/dL High <130 [facility] Comment on above: Order Comment: Speci men Type: BLOOD SPECIMENOrdering Facility: [facility] Address: [address] [place] [address] Result Comment: <130 mg/dL, Optimal 130-159 mg/dL, Near optimal/above optimal 160-189 mg/dL, Borderline high 190-219 mg/dL, High>219 mg/dL, Very highSecondary prevention optimal non HDL Cholesterol levels are recommended to be <100 mg/dL Performed By: #### 2 4323-8, 50171-2, 36801-9, 6-3 ####[facility] LABCLIA [id number] [address] [address] [place] Cholesterol.total/Chol esterol in HDL [Mass ratio] 4.50 {ratio} Normal <5.10 [facility] Comment on above: Order Comment: Speci men Type: BLOOD SPECIMENOrdering Facility: [facility] Address: [address] [place] [address] Performed By: #### 2 4323-8, 56011-3, 58479-7, 6-3 ####[facility] LABCLIA [id number] [address] [place] [address] [place] FASTING TIME 12 hrs Normal [facility] Comment on above: Order Comment: Speci men Type: BLOOD SPECIMENOrdering Facility: [facility] Address: [address] [place], [place] [address] Performed By: #### 2 4323-8, 68548-2, , 6-3 ####[facility] LABCLIA [id number] [address] [place] [address] [place] Triglyceride [Mass/Vol] 194 mg/dL High <150 [facility] Comment on above: Order Comment: Speci men Type: BLOOD SPECIMENOrdering Facility: [facility] Address: [address] [place], [place] [address] Result Comment: <150 mg/dL, Normal 150-199 mg/dL, Borderline high 200-499 mg/dL, High>499 mg/dL, Very high Performed By: #### 2 4323-8, 41474-6, , 6-3 ####[facility] LABCLIA [id number] [address] [place] [address] [place] MAGNESIUMon 10-11-2024 Magnesium [Mass/Vol] 2.1 mg/dL 1.7 - 2 .3 mg/dL [facility] Magnesium SerPl-mCncon 10-11 Magnesium [Mass/Vol] 2.1 mg/dL Normal 1.7-2.3 [facility] Comment on above: Order Comment: Speci men Type: BLOOD SPECIMENOrdering Facility: [facility] Address: [address] [place], [place] [address] Performed By: #### 2 4323-8, 95349-7, 66750-8, 6-3 ####[facility] LABCLIA [id number] [address] [place] [address] [place] Magnesium [Mass/Vol]on 10-11 Interpretation and review of laboratory results Normal [facility] No Panel Informationon 10-11 Interpretation and review of laboratory results Abnormal [facility] THYROID STIMULATING HORMONEo n 10-11-2024 TSH Qn 3.31 m[IU]/L [facility] Comment on above: If the patient is pr egnant, TSH reference range varies by gestational period: First Trimester (weeks 9-12): 0.180-2.990 mIU/L Second Trimester: 0.110-3.980 mIU/L Third Trimester: 0.480-4.710 mIU/L Gualberto Stringer et al. A Practical Approach for the Verifications and Determination of Site- and Trimester-Specific Reference Intervals for Thyroid Function tests in . Thyroid, 2019:29:3:412-420. Riccardo Al et al. 2017 Guidelines of the [place] Thyroid Association for the Diagnosis and Management of Thyroid Disease during and the . Thyroid, 2017:27:3:315-389. TSH Qnon 10-11-2024 Interpretation and review of laboratory results Normal [facility] TSH SerPl-aCncon 10-11-2024 TSH Qn 3.310 m[IU]/L Normal 0.270-4.20 0 [facility] Comment on above: Order Comment: Speci men Type: BLOOD SPECIMENOrdering Facility: [facility] Address: [address] [place] [address] Result Comment: If t he patient is , TSH reference range varies by gestational period:First Trimester (weeks 9-12): 0.180-2.990 mIU/LSecond Trimester: 0.110-3.980 mIU/LThird Trimester: 0.480-4.710 mIU/Isidro Stringer et al. A Practical Approach for the Verifications and Determination of Site- and Trimester-Specific Reference Intervals for Thyroid Function tests in . Thyroid, 2019:29:3:412-420. Riccardo Al et al. 2017 Guidelines of the [place] Thyroid Association for the Diagnosis and Management of Thyroid Disease during and the . Thyroid, 2017:27:3:315-389. Performed By: #### 2 4323-8, 18625-8, 76043-4, 3016-3 ####[facility] LABCLIA [id number] [place] [address] [place] XR CHEST 2V FRONTAL/LATon XR CHEST 2V FRONTAL/LAT Normal [facility] XR Chest PA and Lateralon IMPRESSION: Prominence of the pulmonary markings Wood Die Maker: [email or web address] Transcribe Date/Time: Oct 11 2024 12:31P Dictated by : DELIO CALDWELL MD This examination was interpreted and the report reviewed and electronically signed by: DELIO CALDWELL MD on Oct 11 2024 12:32PM [facility] [email or web address] DIVISION OF RADIOLOGY * * *Final Report* [...] soft tissues: Unremarkable. DIVISION OF RADIOLOGY Provider, [facility] Car[facility] - 10/11/2024 * * *Final Report* * [...] IMPRESSION IMPRESSION: Prominence of the pulmonary markings Wood Die Maker: [email or web address] Transcribe Date/Time: Oct 11 2024 12:31P Dictated by : DELIO CALDWELL MD This examination was interpreted and the report reviewed and electronically signed by: DELIO CALDWELL MD on Oct 11 2024 12:32PM EST [facility] Radiology Study observation (narrative) [facility] XR Chest PA and LateralOrder ed By: Ccf Provider on 10-11-2024 [facility] CNPTOUTREACHon 10-10-2024 CNPTOUTREACH Normal [facility] HbA1c (Bld)on 07-31-2024 Average glucose Estimated from glycated hemoglobin (Bld) [Mass/Vol] 111 mg/dL Normal [facility] Comment on above: Order Comment: Rashad irwin Type: BLOOD SPECIMENOrdering Facility: [facility] Address: [address] [place] [address] Result Comment: eAG: (Estimated average glucose) is a calculated value from HgbA1c and is representative personal service of the average blood glucose level in the last 2-3 month period. Performed By: #### 5 5454-3 ####[facility] LABCLIA [id number] [place] [address] [place] HbA1c (Bld) [Mass fraction] 5.5 % Normal 4.3-5.6 [facility] Comment on above: Order Comment: Rashad irwin Type: BLOOD SPECIMENOrdering Facility: [facility] Address: [address] [place] [address] Result Comment: Amer [place] Diabetes Association guidelines indicate that patients with HgbA1c in the range 5.7-6.4% are at increased risk for development of diabetes, and intervention by lifestyle modification may be beneficial. HgbA1c greater or equal to 6.5% is considered diagnostic of diabetes. Performed By: #### 5 5454-3 ####[facility] LABCLIA [id number] [place] [id number] [place] TSH SerPl-aCncon 07-31-2024 TSH Qn 2.850 m[IU]/L Normal 0.270-4.20 0 [facility] Comment on above: Order Comment: Speci men Type: BLOOD SPECIMENOrdering Facility: [facility] Address: [facility] [place] [address] Result Comment: If t he patient is , TSH reference range varies by gestational period:First Trimester (weeks 9-12): 0.180-2.990 mIU/LSecond Trimester: 0.110-3.980 mIU/LThird Trimester: 0.480-4.710 mIU/Isidro Stringer et al. A Practical Approach for the Verifications and Determination of Site- and Trimester-Specific Reference Intervals for Thyroid Function tests in . Thyroid, 2019:29:3:412-420. Riccardo Al, et al. 2017 Guidelines of the [place] Thyroid Association for the Diagnosis and Management of Thyroid Disease during and the . Thyroid, 2017:27:3:315-389. Performed By: #### 3 016-3 ####[facility] LABCLIA [id number] [place] [id number] [place] CNOVon 07-27-2024 CNOV Normal [facility] CNOVon 07-13-2024 CNOV Normal [facility] INFLUENZA A&B MOLECULAR (POC )on 07-13-2024 Flu A (POCT) Negative Negative [facility] Flu B (POCT) Negative Negative [facility] Procedural Control Valid [facility] Location:[address], [id number] [place] [address] POINT OF CARE [facility] XR CHEST 2V FRONTAL/LATon XR CHEST 2V FRONTAL/LAT Normal [facility] XR Chest PA and Lateralon IMPRESSION: No acute radiographic abnormality. Wood Die Maker: [email or web address] Transcribe Date/Time: Jul 13 2024 4:42P Dictated by : DELIO CALDWELL MD This examination was interpreted and the report reviewed and electronically signed by: DELIO CALDWELL MD on Jul 13 2024 4:43PM EST DIVISION OF RADIOLOGY * * *Final [...] in the spine. DIVISION OF RADIOLOGY Provider, [facility] - 07/13/2024 * * *Final Report* * [...] spine. IMPRESSION IMPRESSION: No acute radiographic abnormality. Wood Die Maker: PSCB Transcribe Date/Time: Jul 13 2024 4:42P Dictated by : DELIO CALDWELL MD This examination was interpreted and the report reviewed and electronically signed by: DELIO CALDWELL MD on Jul 13 2024 4:43PM [facility] Radiology Study observation (narrative) [facility] XR Chest PA and LateralOrder ed By: Ccf Provider on 07-13-2024 [facility] CNOVon 06-30-2024 CNOV Normal [facility] CNPNon 02-03-2025 CNPN Normal [facility] CNOVon 06-16-2024 CNOV Normal [facility] NITRIC OXIDE, EXHALEDon - Viktoriya WoodwardHAILEY T 06/16/2024 1:12 PM RESPIRATORY THERAPY ORAL [...] Exhaled Nitric Oxide (ppb) 06/16/2024 5.0 NAME: ETD Cotter PATIENT NAME: Darren Reinoso DATE: June 16, 2024 TIME: 1:12 PM [facility] NITRIC OXIDE, EXHALEDOrdered By: Viktoriya Woodward on 06-16-2024 [facility] SPIROMETRY WITH DILATOR IF O BSTRUCTEDon 06-16-2024 FEF25% PRE (L/S) 2.90 L/S [facility] VMT10-99% LLN (L/S) 1.60 L/S [facility] ZWS47-13% PRE (L/S) 1.75 L/S [facility] GGW74-85% PREDICTED (L/S) 2.77 L/S [facility] FEF75% LLN (L/S) 0.43 L[facility] FEF75% PRE (L/S0 0.81 L/S [facility] FEF75% PREDICTED (L/S) 0.95 L/S [facility] FEF75% ULN (L/S) 1.92 L/S [facility] FET PRE (S) 6.32 S [facility] FEV1 LLN (L) 1.88 L [facility] FEV1 PRE (L) 1.98 L [facility] FEV1 PREDICTED (L) 2.52 L [facility] FEV1 ULN (L) 3.13 L [facility] FEV1/FVC LLN (%) 71 % [facility] FEV1/FVC PRE (%) 77 % [facility] FEV1/FVC PREDICTED (%) 82 % Cl [facility] FVC LLN (L) 2.29 L [facility] FVC PRE (L) 2.56 L [facility] FVC PREDICTED (L) 3.04 L 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 PULMONARY FUNCTION LAB [facility] CNOVon 04-28-2024 CNOV Normal [facility] HEMOGLOBIN A1C (POC)on 04-28 HbA1c (Bld) [Mass fraction] 6.0 % Abnormal 4.3 - 5.6 % [facility] Comment on above: Location:[address], [address] Point of care (POC) Hemoglobin A1c (HGBA1C) [...] specific diabetes management situations: The POC device side door worker provides a normal range of 4.2% to 6.5% for the HGBA1C POC test. However, the [place] Diabetes Association guidelines indicate that patients with [...] Interpretation and review of laboratory results Abnormal [facility] CNPNon 04-05-2024 CNPN Normal [facility] CNOVon 04-02-2024 CNOV Normal [facility] Bacteria Wnd Culton 04-01-20 Bacteria identified Cx Nom (Wound) Abnormal [facility] Comment on above: Performed By: #### 6 462-6 ####[facility] LABIA [id number] [place] [address] [place] CNOVon 04-01-2024 CNOV Normal [facility] CBC panel Auto (Bld)on 03-31 Erythrocyte distribution width (RBC) [Ratio] 14.8 % Normal 11.5-15.0 [facility] Comment on above: Order Comment: Rashad irwin Type: BLOOD SPECIMENOrdering Facility: [facility] Address: [address] [place] [address] [place] [address] Performed By: #### 5 8410-2 ####[facility] LABIA [id number] [place] [address] [place] Hematocrit (Bld) [Volume fraction] 44.4 % Normal 36.0-46.0 [facility] Comment on above: Order Comment: Rashad irwin Type: BLOOD SPECIMENOrdering Facility: [facility] Address: [facility] [place] [address] Performed By: #### 5 8410-2 ####[facility] LABIA [id number] [place] [address] [place] Hemoglobin (Bld) [Mass/Vol] 13.7 g/dL Normal 11.5-15.5 [facility] Comment on above: Order Comment: Rashad irwin Type: BLOOD SPECIMENOrdering Facility: [facility] Address: [facility] [place] [address] Performed By: #### 5 8410-2 ####[facility] LABIA [id number] [address] MCH (RBC) [Entitic mass] 29.5 pg Normal 26.0-34.0 [facility] Comment on above: Order Comment: Speci men Type: BLOOD SPECIMENOrdering Facility: [facility] Address: [address] [place] [address] Performed By: #### 5 8410-2 ####[facility] [id number] [place] [address] [place] MCHC (RBC) [Mass/Vol] 30.9 g/dL Normal 30.5-36.0 [facility] Comment on above: Order Comment: Speci men Type: BLOOD SPECIMENOrdering Facility: [facility] Address: [address] [place] [address] Performed By: #### 5 8410-2 ####[facility] [id number] [place] [address] [place] MCV (RBC) [Entitic vol] 95.7 fL Normal 80.0-100.0 [facility] Comment on above: Order Comment: Speci men Type: BLOOD SPECIMENOrdering Facility: [facility] Address: [address] [place], [place] [address] [address] Performed By: #### 5 8410-2 ####[facility] [id number] [address] OF [place] Nucleated RBC (Bld) [#/Vol] 10*3/uL Normal <0.01 [facility] Comment on above: Order Comment: Speci men Type: BLOOD SPECIMENOrdering Facility: [facility] Address: [address] [place], [place] [address] [address] Performed By: #### 5 8410-2 ####[facility] [id number] [address] [id number] [address] [place] Platelet mean volume (Bld) [Entitic vol] 9.8 fL Normal 9.0-12.7 [facility] Comment on above: Order Comment: Speci men Type: BLOOD SPECIMENOrdering Facility: [facility] Address: [place] [address] Performed By: #### 5 8410-2 ####[facility] LABIA [id number] [place] [id number] [place] Platelets (Bld) [#/Vol] 252 10*3/uL Normal 150-400 [facility] Comment on above: Order Comment: Speci men Type: BLOOD SPECIMENOrdering Facility: [facility] Address: [facility] [place] [address] Performed By: #### 5 8410-2 ####[facility] LABCLIA [id number] [place] [address] [place] RBC (Bld) [#/Vol] 4.64 10*6/uL Normal 3.90-5.20 [facility] Comment on above: Order Comment: Speci men Type: BLOOD SPECIMENOrdering Facility: [facility] Address: [place] [address] Performed By: #### 5 8410-2 ####[facility] LABIA [id number] [place] [address] [place] WBC (Bld) [#/Vol] 11.81 10*3/uL High 3.70-11.00 [facility] Comment on above: Order Comment: Speci men Type: BLOOD SPECIMENOrdering Facility: [facility] Address: [place] [address] Performed By: #### 5 8410-2 ####[facility] LABCLIA [id number] [address] [address] [place] CNOVon 03-31-2024 CNOV Normal [facility] metabolic 2000 panelon 03-31-2024 Albumin [Mass/Vol] 4.1 g/dL Normal 3.9-4.9 [facility] Comment on above: Order Comment: Speci men Type: BLOOD SPECIMENOrdering Facility: [facility] Address: [facility] [place] [address] Performed By: #### 2 4323-8 ####[facility] LABCLIA [id number] [facility] [address] [place] ALP [Catalytic activity/Vol] 108 U/L Normal 34-123 [facility] Comment on above: Order Comment: Speci men Type: BLOOD SPECIMENOrdering Facility: [facility] Address: [facility] [place] [address] Performed By: #### 2 4323-8 ####[facility] LABCLIA [id number] [place] [address] [place] ALT [Catalytic activity/Vol] 17 U/L Normal 7-38 [facility] Comment on above: Order Comment: Speci men Type: BLOOD SPECIMENOrdering Facility: [facility] Address: [facility] [place] [address] Performed By: #### 2 4323-8 ####[facility] LABCLIA [id number] [facility] [address] [place] Anion gap [Moles/Vol] 14 mmol/L Normal 8-15 [facility] Comment on above: Order Comment: Speci men Type: BLOOD SPECIMENOrdering Facility: [facility] Address: [facility] [place] [address] Performed By: #### 2 4323-8 ####[facility] LABCLIA [id number] [facility] [address] [place] AST [Catalytic activity/Vol] 15 U/L Normal 13-35 [facility] Comment on above: Order Comment: Speci men Type: BLOOD SPECIMENOrdering Facility: [facility] Address: [facility] [address] [place] [address] Performed By: #### 2 4323-8 ####[facility] LABCLIA [id number] [place] [address] [place] Bilirubin [Mass/Vol] mg/dL Low 0.2-1.3 [facility] Comment on above: Order Comment: Speci men Type: BLOOD SPECIMENOrdering Facility: [facility] Address: [facility] [place] [address] Performed By: #### 2 4323-8 ####[facility] LABCLIA [id number] [place] [address] [place] Calcium [Mass/Vol] 9.4 mg/dL Normal 8.5-10.2 [facility] Comment on above: Order Comment: Speci men Type: BLOOD SPECIMENOrdering Facility: [facility] Address: [facility] [place] [address] Performed By: #### 2 4323-8 ####[facility] LABCLIA [id number] [place] [address] [place] Chloride [Moles/Vol] 103 mmol/L Normal 98-107 [facility] Comment on above: Order Comment: Speci men Type: BLOOD SPECIMENOrdering Facility: [facility] Address: [facility] [place] [address] Performed By: #### 2 4323-8 ####[facility] LABCLIA [id number] [place] [address] [place] CO2 [Moles/Vol] 23 mmol/L Normal 22-30 [facility] Comment on above: Order Comment: Speci men Type: BLOOD SPECIMENOrdering Facility: [facility] Disease, [facility] Address: [facility] [place] [address] Performed By: #### 2 4323-8 ####[facility] LABCLIA [id number] [place] [address] [place] Creatinine [Mass/Vol] 0.59 mg/dL Normal 0.58-0.96 [facility] Comment on above: Order Comment: Rashad irwin Type: BLOOD SPECIMENOrdering Facility: [facility] Address: [facility] [place] [address] Performed By: #### 2 4323-8 ####[facility] LABCLIA [id number] [place] [address] [facility] [place] Creatinine and Glomerular filtration rate.predicted panel (S/P/Bld) 113 mL/min/1.73m??? Normal >=60 [facility] Comment on above: Order Comment: Rashad irwin Type: BLOOD SPECIMENOrdering Facility: [facility] Address: [facility] [place] [address] Result Comment: Jen mated Glomerular Filtration Rate [...] Performed By: #### 2 4323-8 ####[facility] LABCLIA [id number] [place] [address] [place] Glucose [Mass/Vol] 84 mg/dL Normal 74-99 [facility] Comment on above: Order Comment: Rashad irwin Type: BLOOD SPECIMENOrdering Facility: [facility], [facility] Address: [facility] [place] [address] Result Comment: The [place] Diabetes Association (ADA) provides guidance for cutoff [...] Standards of Medical Care in Diabetes 2016, [place] Diabetes Association. Diabetes Care. 2016.39(Suppl 1). Performed By: #### 2 4323-8 ####[facility] LABCLIA [id number] [place] [address] [place] Potassium [Moles/Vol] 3.9 mmol/L Normal 3.7-5.1 [facility] Comment on above: Order Comment: Speci men Type: BLOOD SPECIMENOrdering Facility: [facility], [facility] Address: [address] [place], [place] [address] [address] Performed By: #### 2 4323-8 ####[facility] LABCLIA [id number] [place] [address] [place] Protein [Mass/Vol] 7.3 g/dL Normal 6.3-8.0 [facility] Comment on above: Order Comment: Speci men Type: BLOOD SPECIMENOrdering Facility: [facility], [facility] Address: [address] [place], [place] [address] [address] Performed By: #### 2 4323-8 ####[facility] LABCLIA [id number] [place] [address] [place] Sodium [Moles/Vol] 140 mmol/L Normal 136-144 [facility] Comment on above: Order Comment: Surekhai men Type: BLOOD SPECIMENOrdering Facility: [facility], [facility] Address: [facility] [place] [address] Performed By: #### 2 4323-8 ####[facility] LABCLIA [id number] [place] [id number] [place] Urea nitrogen [Mass/Vol] 9 mg/dL Normal 7-21 [facility] Comment on above: Order Comment: Surkehai men Type: BLOOD SPECIMENOrdering Facility: [facility], [facility] Address: [address] [place], [place] [address] [address] Performed By: #### 2 4323-8 ####[facility] LABCLIA [id number] [place] [address] [place] CNOVon 03-17-2024 CNOV Normal [facility] Fungus Spec Culton 4 Fungus identified Cx Nom (Unsp spec) CULTURE, FUNGAL: No Fungus isolated after 28 days Normal [facility] Comment on above: Performed By: #### 5 80-1 ####[facility] LABCLIA [id number] [place] [address] [place] (1,3)-L-W-REFKHJwv 4 (1,3) B-D GLUCAN <31 Normal <60 [facility] Comment on above: Order Comment: Speci men Type: BLOOD SPECIMENOrdering Facility: [facility], [facility] Address: [address] [place] [address] Performed By: #### B DGLUC ####[facility] LABIA [id number] [place] [address] [place] (1,3) B-D GLUCAN QUAL Negative Normal Negative [facility] Comment on above: Order Comment: Speci men Type: BLOOD SPECIMENOrdering Facility: [facility] Address: [address] [place] [address] [place] [address] Performed By: #### B DGLUC ####[facility] LABCLIA [id number] [place] [address] [place] ASPERGILLUS GALACTOMANNAN SE RUMon 03-03-2024 ASPERGILLUS GALACTOMANNAN 0.08 Index Value Normal <=0.49 [facility] Comment on above: Order Comment: Speci men Type: BLOOD SPECIMENOrdering Facility: [facility] Address: [address] [place] [address] Performed By: #### A SGALS ####[facility] LABCLIA [id number] [place] [address] [place] Galactomannan Ag IA Ql Negative Normal Negative [facility] Comment on above: Order Comment: Rashad irwin Type: BLOOD SPECIMENOrdering Facility: [facility] Address: [facility] [place] [address] Result Comment: Aspe rgillus Galactomannan antigen assay [...] Performed By: #### A SGALS ####[facility] LABIA [id number] [place] [address] [place] CBC panel Auto (Bld)on 03-03 Erythrocyte distribution width (RBC) [Ratio] 14.5 % Normal 11.5-15.0 [facility] Comment on above: Order Comment: Rashad irwin Type: BLOOD SPECIMENOrdering Facility: [facility], [facility] Address: [facility] [place] [address] Performed By: #### 5 8410-2 ####[facility] LABIA [id number] [place] [address] [place] Hematocrit (Bld) [Volume fraction] 47.4 % High 36.0-46.0 [facility] Comment on above: Order Comment: Rashad irwin Type: BLOOD SPECIMENOrdering Facility: [facility], [facility] Address: [facility] [place] [address] Performed By: #### 5 8410-2 ####[facility] LABIA [id number] [place] [id number] [place] Hemoglobin (Bld) [Mass/Vol] 14.5 g/dL Normal 11.5-15.5 [facility] Comment on above: Order Comment: Rashad irwin Type: BLOOD SPECIMENOrdering Facility: [facility], [facility] Address: [facility] [place] [address] Performed By: #### 5 8410-2 ####[facility] [id number] [place] [address] [place] MCH (RBC) [Entitic mass] 29.3 pg Normal 26.0-34.0 [facility] Comment on above: Order Comment: Speci men Type: BLOOD SPECIMENOrdering Facility: [facility], [facility] Address: [address] [place] [address] Performed By: #### 5 8410-2 ####[facility] [id number] [address] MCHC (RBC) [Mass/Vol] 30.6 g/dL Normal 30.5-36.0 [facility] Comment on above: Order Comment: Speci men Type: BLOOD SPECIMENOrdering Facility: [facility], [facility] Address: [address] [place] [address] Performed By: #### 5 8410-2 ####[facility] [id number] [address] STATES OF [facility] MCV (RBC) [Entitic vol] 95.8 fL Normal 80.0-100.0 [facility] Comment on above: Order Comment: Speci men Type: BLOOD SPECIMENOrdering Facility: [facility], [facility] Address: [address] [place] [address] Performed By: #### 5 8410-2 ####[facility] [id number] [address] OF [place] Nucleated RBC (Bld) [#/Vol] 10*3/uL Normal <0.01 [facility] Comment on above: Order Comment: Speci men Type: BLOOD SPECIMENOrdering Facility: [facility], [facility] Address: [address] [place] [address] Performed By: #### 5 8410-2 ####[facility] [id number] [address] Platelet mean volume (Bld) [Entitic vol] 9.9 fL Normal 9.0-12.7 [facility] Comment on above: Order Comment: Speci men Type: BLOOD SPECIMENOrdering Facility: [facility], [facility] Address: [facility] [place] [address] Performed By: #### 5 8410-2 ####[facility] LABCLIA [id number] [place] [address] [place] Platelets (Bld) [#/Vol] 265 10*3/uL Normal 150-400 [facility] Comment on above: Order Comment: Speci men Type: BLOOD SPECIMENOrdering Facility: [facility], [facility] Address: [facility] [place] [address] Performed By: #### 5 8410-2 ####[facility] LABCLIA [id number] [place] [address] [place] RBC (Bld) [#/Vol] 4.95 10*6/uL Normal 3.90-5.20 [facility] Comment on above: Order Comment: Speci men Type: BLOOD SPECIMENOrdering Facility: [facility], [facility] Address: [place] [address] Performed By: #### 5 8410-2 ####[facility] LABCLIA [id number] [place] [address] [place] WBC (Bld) [#/Vol] 9.05 10*3/uL Normal 3.70-11.00 [facility] Comment on above: Order Comment: Speci men Type: BLOOD SPECIMENOrdering Facility: [facility], [facility] Address: [place] [address] Performed By: #### 5 8410-2 ####[facility] LABCLIA [id number] [address] [address] [place] Comprehensive metabolic 2000 panelon 03-03-2024 Albumin [Mass/Vol] 3.9 g/dL Normal 3.9-4.9 [facility] Comment on above: Order Comment: Speci men Type: BLOOD SPECIMENOrdering Facility: [facility], [facility] Address: [facility] [place] [address] Performed By: #### 2 4323-8 ####[facility] LABCLIA [id number] [place] [address] [place] ALP [Catalytic activity/Vol] 106 U/L Normal 34-123 [facility] Comment on above: Order Comment: Speci men Type: BLOOD SPECIMENOrdering Facility: [facility], [facility] Address: [facility] [place] [address] Performed By: #### 2 4323-8 ####[facility] LABCLIA [id number] [place] [address] [place] ALT [Catalytic activity/Vol] 20 U/L Normal 7-38 [facility] Comment on above: Order Comment: Speci men Type: BLOOD SPECIMENOrdering Facility: [facility], [facility] Address: [facility] [place] [address] Performed By: #### 2 4323-8 ####[facility] LABCLIA [id number] [place] [address] [place] Anion gap [Moles/Vol] 11 mmol/L Normal 8-15 [facility] Comment on above: Order Comment: Speci men Type: BLOOD SPECIMENOrdering Facility: [facility], [facility] Address: [facility] [place] [address] Performed By: #### 2 4323-8 ####[facility] LABCLIA [id number] [place] [address] [place] AST [Catalytic activity/Vol] 13 U/L Normal 13-35 [facility] Comment on above: Order Comment: Speci men Type: BLOOD SPECIMENOrdering Facility: [facility], [facility] Address: [facility] [place] [address] Performed By: #### 2 4323-8 ####[facility] LABCLIA [id number] [place] [address] [place] Bilirubin [Mass/Vol] 0.2 mg/dL Normal 0.2-1.3 [facility] Comment on above: Order Comment: Speci men Type: BLOOD SPECIMENOrdering Facility: [facility], [facility] Address: [facility] [place] [address] Performed By: #### 2 4323-8 ####[facility] LABCLIA [id number] [place] [address] [place] Calcium [Mass/Vol] 9.7 mg/dL Normal 8.5-10.2 [facility] Comment on above: Order Comment: Speci men Type: BLOOD SPECIMENOrdering Facility: [facility] Address: [facility] [place] [address] Performed By: #### 2 4323-8 ####[facility] LABCLIA [id number] [place] [address] [place] Chloride [Moles/Vol] 105 mmol/L Normal 98-107 [facility] Comment on above: Order Comment: Speci men Type: BLOOD SPECIMENOrdering Facility: [facility], [facility] Address: [facility] [place] [address] Performed By: #### 2 4323-8 ####[facility] LABCLIA [id number] [place] [address] [place] CO2 [Moles/Vol] 26 mmol/L Normal 22-30 [facility] Comment on above: Order Comment: Speci men Type: BLOOD SPECIMENOrdering Facility: [facility], [facility] Address: [facility] [place] [address] Performed By: #### 2 4323-8 ####[facility] LABCLIA [id number] [place] [address] [place] Creatinine [Mass/Vol] 0.79 mg/dL Normal 0.58-0.96 [facility] Comment on above: Order Comment: Speci men Type: BLOOD SPECIMENOrdering Facility: [facility] Address: [facility] [place] [address] Performed By: #### 2 4323-8 ####[facility] LABCLIA [id number] [place] [address] [place] Creatinine and Glomerular filtration rate.predicted panel (S/P/Bld) 94 mL/min/1.73m??? Normal >=60 [facility] Comment on above: Order Comment: Rashad irwin Type: BLOOD SPECIMENOrdering Facility: [facility] Address: [facility] [place] [address] Result Comment: Jen mated Glomerular Filtration Rate [...] Performed By: #### 2 4323-8 ####[facility] LABIA [id number] [place] [address] [place] Glucose [Mass/Vol] 133 mg/dL High 74-99 [facility] Comment on above: Order Comment: Rashad irwin Type: BLOOD SPECIMENOrdering Facility: [facility] Address: [facility] [place] [address] Result Comment: The [place] Diabetes Association (ADA) provides guidance for cutoff [...] Standards of Medical Care in Diabetes 2016, [place] [employer] Association. Diabetes Care. 2016.39(Suppl 1). Performed By: #### 2 4323-8 ####[facility] LABCLIA [id number] [address] [address] [place] Potassium [Moles/Vol] 4.3 mmol/L Normal 3.7-5.1 [facility] Comment on above: Order Comment: Speci men Type: BLOOD SPECIMENOrdering Facility: [facility] Address: [address] [place], [place] [address] [address] Performed By: #### 2 4323-8 ####[facility] LABCLIA [id number] [place] [address] [place] Protein [Mass/Vol] 7.2 g/dL Normal 6.3-8.0 [facility] Comment on above: Order Comment: Speci men Type: BLOOD SPECIMENOrdering Facility: [facility] Address: [address] [place], [place] [address] [address] Performed By: #### 2 4323-8 ####[facility] LABCLIA [id number] [place] [address] [place] Sodium [Moles/Vol] 142 mmol/L Normal 136-144 [facility] Comment on above: Order Comment: Speci men Type: BLOOD SPECIMENOrdering Facility: [facility] Address: [facility] [place] [address] Performed By: #### 2 4323-8 ####[facility] LABCLIA [id number] [place] [id number] [place] Urea nitrogen [Mass/Vol] 12 mg/dL Normal 7-21 [facility] Comment on above: Order Comment: Speci men Type: BLOOD SPECIMENOrdering Facility: [facility] Address: [address] [place], [place] [address] [address] Performed By: #### 2 4323-8 ####[facility] LABCLIA [id number] [place] [id number] [place] HISTO CAPSULATUM AGon 2023 HISTOPLASMA ANTIGEN, SERUM Not detected Normal Not Detected [facility] Comment on above: Order Comment: Speci men Type: BLOOD SPECIMENOrdering Facility: [facility], [facility] Address: [address] [place] [address] Result Comment: Perf ormed By: [id number] [place] [id number] Director: Brad Hernandez MD, PhDCLIA Number: [id number] Performed By: #### S HISTO ####[facility] [id number] [place] [address] HISTOPLASMA ANTIGEN, SERUM INTERP Not detected Normal Not Detected [facility] Comment on above: Order Comment: Speci men Type: BLOOD SPECIMENOrdering Facility: [facility], [facility] Address: [address] [place] [address] Result Comment: INTE RPRETIVE INFORMATION: Histoplasma Antigen [...] was developed and its performance characteristicsdetermined by [facility]. It has not been cleared orapproved by the [place] Food and Drug Administration. This test wasperformed in a CLIA certified laboratory and is intended forclinical purposes. Performed By: #### S HISTO ####[facility] [id number] [place] [address] Voriconazole [facility] Voriconazole [Mass/Vol] 0.8 ug/mL Low 1.0-5.9 [facility] Comment on above: Order Comment: Speci men Type: BLOOD SPECIMENOrdering Facility: [facility], [facility] Address: [facility] [place] [address] Result Comment: Rang es are based on trough draw at steady-state concentration.Therapeutic: >0.9 ug/mLProphylactic: >0.9 ug/mLToxic: >5.9 ug/mLThe therapeutic, prophylactic, and toxic ranges were based on the 2016 Infectious Disease Society of [place]'s (IDSA) Clinical Practice Guidelines for the Management of Aspergillosis and Candidiasis and consultation from [facility]'s Department of Infectious Disease.Reference ranges and high/low indicator flags are provided as general guidelines only. The treating physician must determine appropriate target levels/dosing based on the specific clinical situation.This test was developed, and its performance characteristics determined by the [facility] Department of Pathology and Laboratory Medicine. It has not been cleared or approved by the FDA. The [facility] Department of Pathology and Laboratory Medicine is regulated under CLIA as qualified to perform high-complexity testing. This test is used for clinical purposes. It should not be regarded as investigational or for research. Performed By: #### 3 8370-3 ####[facility] LABCLIA [id number] [place] [address] [place] CNPNon 02-29-2024 CNPN Normal [facility] CT CHEST W IVCONon 4 CT CHEST W IVCON Normal [facility] Fungus Stain 8136on 02-29-20 24 FUNST ___ TESTING PERFORMED AT [facility]. ORIGINAL REPORT ON FILE IN LAB CONTAINS ADDITIONAL TEST SITE INFORMATION. ___ Fungus Stain No yeast or mold observed. Normal [facility] Comment on above: Performed By: #### M 100.1999, M100.2400, M600.0 #### [facility] [address] [place], [address] CNPNon 02-28-2024 CNPN Normal [facility] Respiratory Cultureon 2023 RESPC Mixed normal respira tory wing. No Haemophilus, Streptococcus pneumoniae, beta-hemolytic Streptococcus or Staphylococcus aureus isolated. Normal [facility] Comment on above: Performed By: #### M 100.1999, M100.2400, M600.2200 #### [facility] [address] [facility] [place], [address] A fumigatus IgE Qnon 024 A. fumigatus IgE Qn (S) <0.35 Normal <0.35 [facility] Comment on above: Order Comment: Speci men Type: BLOOD SPECIMENOrdering Facility: [facility] Address: [address] [place] [address] Performed By: #### 6 025-1, 75699-9 ####[facility] LABCLIA [id number] [place] [address] [place] A. FUMIGATUS AB, IGGon 02-24 A FUMIGATUS, IGG BY MARA 9.80 mcg/mL Normal <=99.99 [facility] Comment on above: Order Comment: Speci men Type: BLOOD SPECIMENOrdering Facility: [facility] Address: [address] [place] [address] Result Comment: REFE RENCE INTERVAL: Aspergillus fumigatus [...] was developed and its performance characteristicsdetermined by [facility]. It has not been cleared orapproved by the [place] Food and Drug Administration. This test wasperformed in a CLIA certified laboratory and is intended forclinical purposes. Performed By: #### A SPIGG ####[facility] [id number] [place] [address] A. fumigatus IgE Qn (S)on A. fumigatus IgE RAST class (S) Class 0 Normal Class 0 [facility] Comment on above: Order Comment: Speci men Type: BLOOD SPECIMENOrdering Facility: [facility] Address: [address] [place] [address] Performed By: #### 6 025-1, 14132-7 ####[facility] LABCLIA [id number] [place] [address] [place] CBC W Auto Differential pane l (Bld)on 02-25-2024 Basophils (Bld) [#/Vol] 0.05 10*3/uL Normal <0.11 [facility] Comment on above: Order Comment: Speci men Type: BLOOD SPECIMENOrdering Facility: [facility] Address: [address] [place] [address] Performed By: #### 5 7021-8 ####[facility] LABCLIA [id number] [place] [address] [place] Basophils/100 WBC (Bld) 0.4 % Normal [facility] Comment on above: Order Comment: Speci men Type: BLOOD SPECIMENOrdering Facility: [facility] Address: [address] [place] [address] Performed By: #### 5 7021-8 ####[facility] LABCLIA [id number] [place] [address] [place] Differential cell count method Nom (Bld) Auto Normal [facility] Comment on above: Order Comment: Speci men Type: BLOOD SPECIMENOrdering Facility: [facility] Address: [address] [place] [address] Performed By: #### 5 7021-8 ####[facility] LABCLIA [id number] [place] [address] [place] Eosinophils (Bld) [#/Vol] 0.08 10*3/uL Normal <0.46 [facility] Comment on above: Order Comment: Speci men Type: BLOOD SPECIMENOrdering Facility: [facility] Address: [address] [place] [address] Performed By: #### 5 7021-8 ####[facility] LABCLIA [id number] [place] [address] [place] Eosinophils/100 WBC (Bld) 0.6 % Normal [facility] Comment on above: Order Comment: Speci men Type: BLOOD SPECIMENOrdering Facility: [facility] Address: [address] [place] [address] Performed By: #### 5 7021-8 ####[facility] LABCLIA [id number] [place] [address] [place] Erythrocyte distribution width (RBC) [Ratio] 14.6 % Normal 11.5-15.0 [facility] Comment on above: Order Comment: Speci men Type: BLOOD SPECIMENOrdering Facility: [facility] Address: [address] [place] [address] Performed By: #### 5 7021-8 ####[facility] LABCLIA [id number] [place] [address] [place] Hematocrit (Bld) [Volume fraction] 47.1 % High 36.0-46.0 [facility] Comment on above: Order Comment: Speci men Type: BLOOD SPECIMENOrdering Facility: [facility] Address: [address] [place] [address] Performed By: #### 5 7021-8 ####[facility] LABCLIA [id number] [place] [address] [place] Hemoglobin (Bld) [Mass/Vol] 14.3 g/dL Normal 11.5-15.5 [facility] Comment on above: Order Comment: Speci men Type: BLOOD SPECIMENOrdering Facility: [facility] Address: [address] [place] [address] Performed By: #### 5 7021-8 ####[facility] LABCLIA [id number] [place] [address] [place] Immature granulocytes (Bld) [#/Vol] 0.09 10*3/uL Normal <0.10 [facility] Comment on above: Order Comment: Speci men Type: BLOOD SPECIMENOrdering Facility: [facility] Address: [address] [place] [address] Performed By: #### 5 7021-8 ####[facility] LABIA [id number] [place] [address] [place] Immature granulocytes/100 WBC (Bld) 0.7 % Normal [facility] Comment on above: Order Comment: Speci men Type: BLOOD SPECIMENOrdering Facility: [facility] Address: [address] [place] [address] Performed By: #### 5 7021-8 ####[facility] LABCLIA [id number] [place] [address] [place] Lymphocytes (Bld) [#/Vol] 3.27 10*3/uL Normal 1.00-4.00 [facility] Comment on above: Order Comment: Speci men Type: BLOOD SPECIMENOrdering Facility: [facility] Address: [address] [place] [address] Performed By: #### 5 7021-8 ####[facility] LABCLIA [id number] [place] [address] [place] Lymphocytes/100 WBC (Bld) 24.5 % Normal [facility] Comment on above: Order Comment: Speci men Type: BLOOD SPECIMENOrdering Facility: [facility] Address: [address] [place] [address] Performed By: #### 5 7021-8 ####[facility] LABIA [id number] [place] [address] [place] MCH (RBC) [Entitic mass] 29.0 pg Normal 26.0-34.0 [facility] Comment on above: Order Comment: Speci men Type: BLOOD SPECIMENOrdering Facility: [facility] Address: [address] [place] [address] Performed By: #### 5 7021-8 ####[facility] [id number] [place] [address] [place] MCHC (RBC) [Mass/Vol] 30.4 g/dL Low 30.5-36.0 [facility] Comment on above: Order Comment: Speci men Type: BLOOD SPECIMENOrdering Facility: [facility] Address: [address] [place] [address] Performed By: #### 5 7021-8 ####[facility] LABIA [id number] [place] [address] [place] MCV (RBC) [Entitic vol] 95.5 fL Normal 80.0-100.0 [facility] Comment on above: Order Comment: Speci men Type: BLOOD SPECIMENOrdering Facility: [facility] Address: [address] [place] [address] Performed By: #### 5 7021-8 ####[facility] LABIA [id number] [place] [address] [place] Monocytes (Bld) [#/Vol] 0.80 10*3/uL Normal <0.87 [facility] Comment on above: Order Comment: Speci men Type: BLOOD SPECIMENOrdering Facility: [facility] Address: [address] [place] [address] Performed By: #### 5 7021-8 ####[facility] LABCLIA [id number] [place] [address] [place] Monocytes/100 WBC (Bld) 6.0 % Normal [facility] Comment on above: Order Comment: Speci men Type: BLOOD SPECIMENOrdering Facility: [facility] Address: [address] [place] [address] Performed By: #### 5 7021-8 ####[facility] LABCLIA [id number] [place] [address] [place] Neutrophils (Bld) [#/Vol] 9.08 10*3/uL High 1.45-7.50 [facility] Comment on above: Order Comment: Speci men Type: BLOOD SPECIMENOrdering Facility: [facility] Address: [address] [place] [address] Performed By: #### 5 7021-8 ####[facility] LABIA [id number] [place] [address] [place] Neutrophils/100 WBC (Bld) 67.8 % Normal [facility] Comment on above: Order Comment: Speci men Type: BLOOD SPECIMENOrdering Facility: [facility] Address: [address] [place] [address] Performed By: #### 5 7021-8 ####[facility] LABIA [id number] [place] [address] [place] Nucleated RBC (Bld) [#/Vol] 10*3/uL Normal <0.01 [facility] Comment on above: Order Comment: Speci men Type: BLOOD SPECIMENOrdering Facility: [facility] Address: [address] [place] [address] Performed By: #### 5 7021-8 ####[facility] LABCLIA [id number] [place] [address] [place] Nucleated RBC/100 WBC (Bld) [Ratio] 0.0 /100 WBC Normal [facility] Comment on above: Order Comment: Speci men Type: BLOOD SPECIMENOrdering Facility: [facility] Address: [address] [place] [address] Performed By: #### 5 7021-8 ####[facility] LABIA [id number] [place] [address] [place] Platelet mean volume (Bld) [Entitic vol] 10.0 fL Normal 9.0-12.7 [facility] Comment on above: Order Comment: Speci men Type: BLOOD SPECIMENOrdering Facility: [facility] Address: [address] [place] [address] Performed By: #### 5 7021-8 ####[facility] LABIA [id number] [place] [address] [place] Platelets (Bld) [#/Vol] 251 10*3/uL Normal 150-400 [facility] Comment on above: Order Comment: Speci men Type: BLOOD SPECIMENOrdering Facility: [facility] Address: [address] [place] [address] Performed By: #### 5 7021-8 ####[facility] LABIA [id number] [place] [address] [place] RBC (Bld) [#/Vol] 4.93 10*6/uL Normal 3.90-5.20 [facility] Comment on above: Order Comment: Speci men Type: BLOOD SPECIMENOrdering Facility: [facility] Address: [address] [place] [address] Performed By: #### 5 7021-8 ####[facility] LABIA [id number] [place] [address] [place] WBC (Bld) [#/Vol] 13.37 10*3/uL High 3.70-11.00 [facility] Comment on above: Order Comment: Speci men Type: BLOOD SPECIMENOrdering Facility: [facility] Address: [address] [place] [address] Performed By: #### 5 7021-8 ####[facility] LABIA [id number] [place] [address] [place] CNPNon 02-25-2024 CNPN Normal [facility] Gram Stainon 02-25-2024 GS Acceptable Specimen? Yes (<25 Epithelial cells per/lpf) Gram Stain 4+ White Blood Cells 3+ Gram positive rods 1+ Epithelial cells 1+ Gram positive cocci Normal [facility] Comment on above: Performed By: #### M 100.2000, M100.2400, M600.2200 #### [facility] [address] [place] [address]. [place], [place], [id number] IgE SerPl-aCncon 02-25-2024 IgE Qn 48.4 kU/l Normal <114.0 [facility] Comment on above: Order Comment: Speci men Type: BLOOD SPECIMENOrdering Facility: [facility] Address: [address] [place] [address] Performed By: #### 6 025-1, 63155-3 ####[facility] LABIA [id number] [place] [address] [place] Liver Profileon 02-25-2024 Albumin [Mass/Vol] 3.2 g/dL Normal 3.2-5.0 [facility] Comment on above: Performed By: #### L 500.3400 #### [facility] [address] [facility] [place], [address] ALK P 101 U/L Normal 45-117 [facility] Comment on above: Performed By: #### L 500.3400 #### [facility] [address] [facility] [place], [address] ALT [Catalytic activity/Vol] 26 U/L Normal 13-56 [facility] Comment on above: Performed By: #### L 500.3400 #### [facility] [address] [place], [address] AST [Catalytic activity/Vol] 26 U/L Normal 15-37 [facility] Comment on above: Result Comment: Mode rate Hemolysis, Result may be falsely increased. Performed By: #### L 500.3400 #### [facility] [address] [place], [address] Bilirubin [Mass/Vol] 0.40 mg/dL Normal 0.20-1.00 [facility] Comment on above: Result Comment: For patients on eltrombopag therapy, use of Dimension [place] TBIL is not recommended. Performed By: #### L 500.3400 #### [facility] [address] [place], [address] D BILI < 0.05 Normal 0.00-0.30 [facility] Comment on above: Performed By: #### L 500.3400 #### [facility] [address] [place], [address] Globulin (S) [Mass/Vol] 4.4 g/dL High 2.2-4.2 [facility] Comment on above: Performed By: #### L 500.3400 #### [facility] [address] [place], [address] T PROT 7.6 g/dL Normal 6.4-8.2 [facility] Comment on above: Performed By: #### L 500.3400 #### [facility] [address] [place], [address] Pulmonary Visit Reporton Pulmonary Visit Report [facility] [place] [address] [place] [address] OFFICE VISIT Date of Service: 02/25/24 MR#: [id number] Acct: [id number] Name: DARREN REINOSO Rep #: [id number] : 1980 Provider: RAMON Regalado Age/Sex: 44/F Location: [facility] [place] [place].PMW Status: Signed Assessment and Plan Assessment and Plan (1) Aspergillosis: Status: Acute Plan: The patient shows me her MyChart from [facility]. Detailed sputum results are not available, however [...] PRN So (more content not included)... Normal [facility] CNOVon 02-21-2024 CNOV Normal [facility] Bacteria Spec Resp Culton Bacteria identified Respiratory culture Nom (Unsp spec) ORGANISM ID: 1 Many normal respiratory wing ORGANISM ID: 2 Rare Aspergillus fumigatus By MALDI TOF Mass Spectrometry. GRAM STAIN: Rare Mixed oral wnig No Polymorphonuclear Leukocytes Abnormal [facility] Comment on above: Performed By: #### 3 2355-0 ####[facility] LABCLIA [id number] [address] CNOVon 02-17-2024 CNOV Normal [facility] XR CHEST 2V FRONTAL/LATon XR CHEST 2V FRONTAL/LAT Normal [facility] XR Chest PA and Lateralon IMPRESSION: No definite acute radiographic abnormality. 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 DIVISION OF RADIOLOGY Provider, Dulce Maria Carissa Viramontes - 02/04/2024 * * *Final Report* [...] IMPRESSION IMPRESSION: No definite acute radiographic abnormality. Wood Die Maker: [email or web address] Transcribe Date/Time: Feb 04 2024 4:59P Dictated by : DELIO CALDWELL MD This examination was interpreted and the report reviewed and electronically signed by: DELIO CALDWELL MD on Feb 04 2024 4:59PM EST [facility] Radiology Study observation (narrative) [facility] XR Chest PA and LateralOrder ed By: Ccf Provider on 02-04-2024 [facility] CNOVon 02-02-2024 CNOV Normal [facility] COVID AND INFLUENZA A/B AND RSV PCR, ROUTINEon 02-02-2024 SARS-CoV-2 (COVID-19) RNA PREETI+probe Ql (Unsp spec) SARS-COV-2 (AGENT OF COVID-19) RNA: Not detected INFLUENZA A RNA: Not detected INFLUENZA B RNA: Not detected RESPIRATORY SYNCYTIAL VIRUS (RSV) RNA: Not detected Normal [facility] Comment on above: Performed By: #### C VFLRS ####[facility] LABCLIA [id number] [place] [address] [place] Basic metabolic 2000 panelon 01-21-2024 Anion gap [Moles/Vol] 13 mmol/L Normal 8-15 [facility] Comment on above: Order Comment: Speci men Type: BLOOD SPECIMENOrdering Facility: [facility] Address: [address] [place] [id number] Performed By: #### 2 4321-2 ####[facility] LABCLIA [id number] [address] [address] [place] Calcium [Mass/Vol] 9.5 mg/dL Normal 8.5-10.2 [facility] Comment on above: Order Comment: Speci men Type: BLOOD SPECIMENOrdering Facility: [facility] Address: [address] [place], [place] [address] Performed By: #### 2 4321-2 ####[facility] LABCLIA [id number] [place] [address] [place] Chloride [Moles/Vol] 104 mmol/L Normal 98-107 [facility] Comment on above: Order Comment: Speci men Type: BLOOD SPECIMENOrdering Facility: [facility] Address: [address] [place] [address] Performed By: #### 2 4321-2 ####[facility] LABCLIA [id number] [place] [address] [place] CO2 [Moles/Vol] 21 mmol/L Low 22-30 [facility] Comment on above: Order Comment: Speci men Type: BLOOD SPECIMENOrdering Facility: [facility] Address: [address] [place], [place] [address] Performed By: #### 2 4321-2 ####[facility] LABCLIA [id number] [place] [address] [place] Creatinine [Mass/Vol] 0.71 mg/dL Normal 0.58-0.96 [facility] Comment on above: Order Comment: Speci men Type: BLOOD SPECIMENOrdering Facility: [facility] Address: [address] [place], [place] [address] Performed By: #### 2 4321-2 ####[facility] LABCLIA [id number] [address] [id number] [address] [place] Creatinine and Glomerular filtration rate.predicted panel (S/P/Bld) 106 mL/min/1.73m??? Normal >=60 [facility] Comment on above: Order Comment: Rashad irwin Type: BLOOD SPECIMENOrdering Facility: [facility] Address: [address] [place] [address] Result Comment: Jen mated Glomerular Filtration Rate [...] Performed By: #### 2 4321-2 ####[facility] LABCLIA [id number] [place] [address] [place] Glucose [Mass/Vol] 110 mg/dL High 74-99 [facility] Comment on above: Order Comment: Rashad irwin Type: BLOOD SPECIMENOrdering Facility: [facility] Address: [address] [place] [address] Result Comment: The [place] [employer] (ADA) provides guidance for cutoff [...] Standards of Medical Care in Diabetes 2016, [place] [employer]. Diabetes Care. 2016.39(Suppl 1). Performed By: #### 2 4321-2 ####[facility] LABIA [id number] [place] [address] [place] Potassium [Moles/Vol] 4.3 mmol/L Normal 3.7-5.1 [facility] Comment on above: Order Comment: Speci men Type: BLOOD SPECIMENOrdering Facility: [facility] Address: [address] [place] [address] Performed By: #### 2 4321-2 ####[facility] LABCLIA [id number] [place] [address] [place] Sodium [Moles/Vol] 138 mmol/L Normal 136-144 [facility] Comment on above: Order Comment: Speci men Type: BLOOD SPECIMENOrdering Facility: [facility] Address: [address] [place] [address] Performed By: #### 2 4321-2 ####[facility] LABCLIA [id number] [place] [address] [place] Urea nitrogen [Mass/Vol] 12 mg/dL Normal 7-21 [facility] Comment on above: Order Comment: Speci men Type: BLOOD SPECIMENOrdering Facility: [facility] Address: [address] [place] [address] Performed By: #### 2 4321-2 ####[facility] LABCLIA [id number] [place] [address] [place] CBC W Auto Differential pane l (Bld)on 01-21-2024 Basophils (Bld) [#/Vol] 0.05 10*3/uL [facility] Basophils/100 WBC (Bld) 0.5 % [facility] Differential cell count method Nom (Bld) Auto [facility] Eosinophils (Bld) [#/Vol] 0.07 10*3/uL [facility] Eosinophils/100 WBC (Bld) 0.7 % [facility] Erythrocyte distribution width (RBC) [Ratio] 14.3 % 11.5 - 15.0 % [facility] Hematocrit (Bld) [Volume fraction] 44.6 % 36.0 - 46.0 % [facility] Hemoglobin (Bld) [Mass/Vol] 13.6 g/dL 11.5 - 15.5 g/dL [facility] Immature granulocytes (Bld) [#/Vol] 0.05 10*3/uL NINF [facility] Immature granulocytes/100 WBC (Bld) 0.5 % [facility] Lymphocytes (Bld) [#/Vol] 2.43 10*3/uL [facility] Lymphocytes/100 WBC (Bld) 25.2 % [facility] MCH (RBC) [Entitic mass] 28.9 pg 26.0 - 34.0 pg [facility] MCHC (RBC) [Mass/Vol] 30.5 g/dL 30.5 - 36.0 g/dL [facility] MCV (RBC) [Entitic vol] 94.7 fL 80.0 - 100.0 fL [facility] Monocytes (Bld) [#/Vol] 0.66 10*3/uL [facility] Monocytes/100 WBC (Bld) 6.8 % [facility] Neutrophils (Bld) [#/Vol] 6.40 10*3/uL [facility] Neutrophils/100 WBC (Bld) 66.3 % [facility] Nucleated RBC (Bld) [#/Vol] [facility] Nucleated RBC/100 WBC (Bld) [Ratio] 0.0 % /100 WBC [facility] Platelet mean volume (Bld) [Entitic vol] 9.6 fL 9.0 - 12.7 fL [facility] Platelets (Bld) [#/Vol] 248 10*3/uL [facility] RBC (Bld) [#/Vol] 4.71 10*6/uL 3.90 - 5.20 m/uL [facility] WBC (Bld) [#/Vol] 9.66 10*3/uL [facility] Basophils (Bld) [#/Vol] 0.05 10*3/uL Normal <0.11 [facility] Comment on above: Order Comment: Speci men Type: BLOOD SPECIMENOrdering Facility: [facility] Address: [address] [place] [address] Performed By: #### 5 7021-8 ####[facility] LABCLIA [id number] [place] [address] [place] Basophils/100 WBC (Bld) 0.5 % Normal [facility] Comment on above: Order Comment: Speci men Type: BLOOD SPECIMENOrdering Facility: [facility] Address: [address] [place] [address] Performed By: #### 5 7021-8 ####[facility] LABCLIA [id number] [place] [address] [place] Differential cell count method Nom (Bld) Auto Normal [facility] Comment on above: Order Comment: Speci men Type: BLOOD SPECIMENOrdering Facility: [facility] Address: [address] [place] [address] Performed By: #### 5 7021-8 ####[facility] LABCLIA [id number] [place] [address] [place] Eosinophils (Bld) [#/Vol] 0.07 10*3/uL Normal <0.46 [facility] Comment on above: Order Comment: Speci men Type: BLOOD SPECIMENOrdering Facility: [facility] Address: [address] [place] [address] Performed By: #### 5 7021-8 ####[facility] LABCLIA [id number] [place] [address] [place] Eosinophils/100 WBC (Bld) 0.7 % Normal [facility] Comment on above: Order Comment: Speci men Type: BLOOD SPECIMENOrdering Facility: [facility] Address: [address] [place] [address] Performed By: #### 5 7021-8 ####[facility] LABCLIA [id number] [place] [address] [place] Erythrocyte distribution width (RBC) [Ratio] 14.3 % Normal 11.5-15.0 [facility] Comment on above: Order Comment: Speci men Type: BLOOD SPECIMENOrdering Facility: [facility] Address: [address] [place] [address] Performed By: #### 5 7021-8 ####[facility] LABCLIA [id number] [id number] [address] [place] Hematocrit (Bld) [Volume fraction] 44.6 % Normal 36.0-46.0 [facility] Comment on above: Order Comment: Speci men Type: BLOOD SPECIMENOrdering Facility: [facility] Address: [address] [place] [address] Performed By: #### 5 7021-8 ####[facility] LABCLIA [id number] [place] [address] [place] Hemoglobin (Bld) [Mass/Vol] 13.6 g/dL Normal 11.5-15.5 [facility] Comment on above: Order Comment: Speci men Type: BLOOD SPECIMENOrdering Facility: [facility] Address: [address] [place] [address] Performed By: #### 5 7021-8 ####[facility] LABCLIA [id number] [place] [address] [place] Immature granulocytes (Bld) [#/Vol] 0.05 10*3/uL Normal <0.10 [facility] Comment on above: Order Comment: Speci men Type: BLOOD SPECIMENOrdering Facility: [facility] Address: [address] [place] [address] Performed By: #### 5 7021-8 ####[facility] LABCLIA [id number] [place] [address] [place] Immature granulocytes/100 WBC (Bld) 0.5 % Normal [facility] Comment on above: Order Comment: Speci men Type: BLOOD SPECIMENOrdering Facility: [facility] Address: [address] [place] [address] Performed By: #### 5 7021-8 ####[facility] LABCLIA [id number] [place] [address] [place] Lymphocytes (Bld) [#/Vol] 2.43 10*3/uL Normal 1.00-4.00 [facility] Comment on above: Order Comment: Speci men Type: BLOOD SPECIMENOrdering Facility: [facility] Address: [address] [place] [address] Performed By: #### 5 7021-8 ####[facility] LABCLIA [id number] [place] [address] [place] Lymphocytes/100 WBC (Bld) 25.2 % Normal [facility] Comment on above: Order Comment: Speci men Type: BLOOD SPECIMENOrdering Facility: [facility] Address: [address] [place] [address] Performed By: #### 5 7021-8 ####[facility] LABCLIA [id number] [place] [address] [place] MCH (RBC) [Entitic mass] 28.9 pg Normal 26.0-34.0 [facility] Comment on above: Order Comment: Speci men Type: BLOOD SPECIMENOrdering Facility: [facility] Address: [address] [place] [address] Performed By: #### 5 7021-8 ####[facility] LABIA [id number] [place] [address] [place] MCHC (RBC) [Mass/Vol] 30.5 g/dL Normal 30.5-36.0 [facility] Comment on above: Order Comment: Speci men Type: BLOOD SPECIMENOrdering Facility: [facility] Address: [address] [place] [address] Performed By: #### 5 7021-8 ####[facility] LABCLIA [id number] [place] [address] [place] MCV (RBC) [Entitic vol] 94.7 fL Normal 80.0-100.0 [facility] Comment on above: Order Comment: Speci men Type: BLOOD SPECIMENOrdering Facility: [facility] Address: [address] [place] [address] Performed By: #### 5 7021-8 ####[facility] LABCLIA [id number] [place] [address] [place] Monocytes (Bld) [#/Vol] 0.66 10*3/uL Normal <0.87 [facility] Comment on above: Order Comment: Speci men Type: BLOOD SPECIMENOrdering Facility: [facility] Address: [address] [place] [address] Performed By: #### 5 7021-8 ####[facility] LABCLIA [id number] [place] [address] [place] Monocytes/100 WBC (Bld) 6.8 % Normal [facility] Comment on above: Order Comment: Speci men Type: BLOOD SPECIMENOrdering Facility: [facility] Address: [address] [place] [address] Performed By: #### 5 7021-8 ####[facility] LABCLIA [id number] [place] [address] [place] Neutrophils (Bld) [#/Vol] 6.40 10*3/uL Normal 1.45-7.50 [facility] Comment on above: Order Comment: Speci men Type: BLOOD SPECIMENOrdering Facility: [facility] Address: [address] [place] [address] Performed By: #### 5 7021-8 ####[facility] LABCLIA [id number] [place] [address] [place] Neutrophils/100 WBC (Bld) 66.3 % Normal [facility] Comment on above: Order Comment: Speci men Type: BLOOD SPECIMENOrdering Facility: [facility] Address: [address] [place] [address] Performed By: #### 5 7021-8 ####[facility] LABCLIA [id number] [place] [address] [place] Nucleated RBC (Bld) [#/Vol] 10*3/uL Normal <0.01 [facility] Comment on above: Order Comment: Speci men Type: BLOOD SPECIMENOrdering Facility: [facility] Address: [address] [place] [address] Performed By: #### 5 7021-8 ####[facility] LABIA [id number] [place] [address] [place] Nucleated RBC/100 WBC (Bld) [Ratio] 0.0 /100 WBC Normal [facility] Comment on above: Order Comment: Speci men Type: BLOOD SPECIMENOrdering Facility: [facility] Address: [address] [place] [address] Performed By: #### 5 7021-8 ####[facility] LABIA [id number] [place] [address] [place] Platelet mean volume (Bld) [Entitic vol] 9.6 fL Normal 9.0-12.7 [facility] Comment on above: Order Comment: Speci men Type: BLOOD SPECIMENOrdering Facility: [facility] Address: [address] [place] [address] Performed By: #### 5 7021-8 ####[facility] LABIA [id number] [place] [address] [place] Platelets (Bld) [#/Vol] 248 10*3/uL Normal 150-400 [facility] Comment on above: Order Comment: Speci men Type: BLOOD SPECIMENOrdering Facility: [facility] Address: [address] [place] [address] Performed By: #### 5 7021-8 ####[facility] LABIA [id number] [place] [address] [place] RBC (Bld) [#/Vol] 4.71 10*6/uL Normal 3.90-5.20 [facility] Comment on above: Order Comment: Speci men Type: BLOOD SPECIMENOrdering Facility: [facility] Address: [address] [place] [address] Performed By: #### 5 7021-8 ####[facility] LABCLIA [id number] [place] [id number] [place] WBC (Bld) [#/Vol] 9.66 10*3/uL Normal 3.70-11.00 [facility] Comment on above: Order Comment: Speci men Type: BLOOD SPECIMENOrdering Facility: [facility] Address: [address] [place] [address] Performed By: #### 5 7021-8 ####[facility] LABCLIA [id number] [place] [id number] [place] CNOVon 01-21-2024 CNOV Normal [facility] XR CHEST 2V FRONTAL/LATon XR CHEST 2V FRONTAL/LAT Normal [facility] XR Chest PA and Lateralon IMPRESSION: No acute radiographic abnormality. Wood Die Maker: [email or web address] Transcribe Date/Time: Jan 21 2024 12:12P Dictated by : DELIO CALDWELL MD This examination was interpreted and the report reviewed and electronically signed by: DELIO CALDWELL MD on Jan 21 2024 12:13PM [facility] [[email or web address] DIVISION OF RADIOLOGY * * *Final Report* [...] shows degenerative changes. DIVISION OF RADIOLOGY Provider, [facility] Carissa Viramontes - 01/21/2024 * * *Final Report* [...] changes. IMPRESSION IMPRESSION: No acute radiographic abnormality. Wood Die Maker: [email or web address] Transcribe Date/Time: Jan 21 2024 12:12P Dictated by : DELIO CALDWELL MD This examination was interpreted and the report reviewed and electronically signed by: DELIO CALDWELL MD on Jan 21 2024 12:13PM EST [facility] Radiology Study observation (narrative) [facility] XR Chest PA and LateralOrder ed By: Ccf Provider on 01-21-2024 [facility] CNPNon 01-18-2024 CNPN Normal [facility] CNOVon 01-13-2024 CNOV Normal [facility] CNPNon 01-11-2024 CNPN Normal [facility] CNPNon 01-05-2024 CNPN Normal [facility] .Auto Diffon 01-04-2024 Basophil, Absolute 0.0 10 3/mcL Normal 0.0-0.2 [facility] ([place]) Comment on above: Performed By: #### M DW, CBC, ADIFF, BMP, ANEU, GFR, TROPHS, PBNP #### [address] [address] Basophils/100 WBC (Bld) 0.3 % Normal 0.0-2.5 [facility] ([place]) Comment on above: Performed By: #### M DW, CBC, ADIFF, BMP, ANEU, GFR, TROPHS, PBNP #### [address] [place], [place] [address] Eosinophil, Absolute 0.1 10 3/mcL Normal 0.0-0.4 [facility] ([place]) Comment on above: Performed By: #### M DW, CBC, ADIFF, BMP, ANEU, GFR, TROPHS, PBNP #### [address] [address] Eosinophils/100 WBC (Bld) 0.9 % Normal 0.0-7.0 [facility] ([place]) Comment on above: Performed By: #### M DW, CBC, ADIFF, BMP, ANEU, GFR, TROPHS, PBNP #### [address] [address] Lymphocyte, Absolute 2.1 10 3/mcL Normal 0.8-3.9 [facility] ([place]) Comment on above: Performed By: #### M DW, CBC, ADIFF, BMP, ANEU, GFR, TROPHS, PBNP #### [address] [address] Lymphocytes/100 WBC (Bld) 24.7 % Normal 10.0-50.0 [facility] ([place]) Comment on above: Performed By: #### M DW, CBC, ADIFF, BMP, ANEU, GFR, TROPHS, PBNP #### [address] [address] Monocyte, Absolute 0.5 10 3/mcL Normal 0.2-1.0 [facility] ([place] Comment on above: Performed By: #### M DW, CBC, ADIFF, BMP, ANEU, GFR, TROPHS, PBNP #### [address] [address] Monocytes/100 WBC (Bld) 6.4 % Normal 1.7-13.0 [facility] ([place]) Comment on above: Performed By: #### M DW, CBC, ADIFF, BMP, ANEU, GFR, TROPHS, PBNP #### [address] [address] Neutrophils/100 WBC (Bld) 67.7 % Normal 37.0-80.0 [facility] ([place]) Comment on above: Performed By: #### M DW, CBC, ADIFF, BMP, ANEU, GFR, TROPHS, PBNP #### [address] [address] .GFRon 01-04-2024 GFR 89 ml/min/1.73sqm Normal [facility] ([place]) Comment on above: Result Comment: GFR [...] ADIFF, BMP, ANEU, GFR, TROPHS, PBNP #### [address] [address] GFR Non- 73 ml/min/1.73sqm Normal [facility] ([place]) Comment on above: Result Comment: GFR [...] ADIFF, BMP, ANEU, GFR, TROPHS, PBNP #### [address] [address] .MDWon 01-04-2024 Monocyte Distribution Width 18.79 Normal 0.00-20.00 [facility] ([place]) Comment on above: Result Comment: For ED adult patients suspected of sepsis, MDW<=20.0 does not rule out sepsis or risk of sepsis Performed By: #### M DW, CBC, ADIFF, BMP, ANEU, GFR, TROPHS, PBNP #### [address] [address] .NEUABSon 01-04-2024 Neutrophil, Absolute 5.8 10 3/mcL Normal 2.9-6.2 [facility] ([place]) Comment on above: Performed By: #### M DW, CBC, ADIFF, BMP, ANEU, GFR, TROPHS, PBNP #### [address] [address] BMPon 01-04-2024 BUN/Creatinine Ratio 13 ratio Normal 7-27 [facility] ([place]) Comment on above: Performed By: #### M DW, CBC, ADIFF, BMP, ANEU, GFR, TROPHS, PBNP #### [address] [address] Calcium [Mass/Vol] 8.9 mg/dL Normal 8.4-10.2 [facility] ([place]) Comment on above: Performed By: #### M DW, CBC, ADIFF, BMP, ANEU, GFR, TROPHS, PBNP #### [address] [address] Chloride [Moles/Vol] 105 mmol/L Normal 98-107 [facility] ([place]) Comment on above: Performed By: #### M DW, CBC, ADIFF, BMP, ANEU, GFR, TROPHS, PBNP #### [address] [address] CO2 [Moles/Vol] 28 mmol/L Normal 22-29 [facility] ([place]) Comment on above: Performed By: #### M DW, CBC, ADIFF, BMP, ANEU, GFR, TROPHS, PBNP #### [address] [address] Creatinine [Mass/Vol] 0.84 mg/dL Normal 0.55-1.02 [facility] ([place]) Comment on above: Performed By: #### M DW, CBC, ADIFF, BMP, ANEU, GFR, TROPHS, PBNP #### [address] [address] Electrolyte Balance 8.0 mEq/L Normal 4.0-15.0 [facility] ([place]) Comment on above: Performed By: #### M DW, CBC, ADIFF, BMP, ANEU, GFR, TROPHS, PBNP #### [address] [address] Glucose [Mass/Vol] 116 mg/dL High 70-105 [facility] ([place]) Comment on above: Performed By: #### M DW, CBC, ADIFF, BMP, ANEU, GFR, TROPHS, PBNP #### [address] [address] Potassium [Moles/Vol] 4.0 mmol/L Normal 3.5-5.1 [facility] ([place]) Comment on above: Performed By: #### M DW, CBC, ADIFF, BMP, ANEU, GFR, TROPHS, PBNP #### [address] [address] Sodium [Moles/Vol] 141 mmol/L Normal 136-145 [facility] ([place]) Comment on above: Performed By: #### M DW, CBC, ADIFF, BMP, ANEU, GFR, TROPHS, PBNP #### [address] [address] Urea nitrogen [Mass/Vol] 11 mg/dL Normal 7-18 [facility] ([place]) Comment on above: Performed By: #### M DW, CBC, ADIFF, BMP, ANEU, GFR, TROPHS, PBNP #### [address] [address] CBCon 01-04-2024 Erythrocyte distribution width (RBC) [Ratio] 15.0 % High 11.5-14.5 [facility] ([place]) Comment on above: Performed By: #### M DW, CBC, ADIFF, BMP, ANEU, GFR, TROPHS, PBNP #### [place] [address] Hematocrit (Bld) [Volume fraction] 43.7 % Normal 37.0-47.0 [facility] ([place]) Comment on above: Performed By: #### M DW, CBC, ADIFF, BMP, ANEU, GFR, TROPHS, PBNP #### [place] [address] Hgb 14.3 G/dL Normal 12.0-16.0 [facility] ([place]) Comment on above: Performed By: #### M DW, CBC, ADIFF, BMP, ANEU, GFR, TROPHS, PBNP #### [place] [address] MCH (RBC) [Entitic mass] 30.0 pg Normal 27.0-31.2 [facility] ([place]) Comment on above: Performed By: #### M DW, CBC, ADIFF, BMP, ANEU, GFR, TROPHS, PBNP #### [place] [address] MCHC 32.8 G/dL Low 33.0-37.0 [facility] ([place] Comment on above: Performed By: #### M DW, CBC, ADIFF, BMP, ANEU, GFR, TROPHS, PBNP #### [place] [address] MCV (RBC) [Entitic vol] 91.5 fL Normal 80.0-94.0 [facility] ([place]) Comment on above: Performed By: #### M DW, CBC, ADIFF, BMP, ANEU, GFR, TROPHS, PBNP #### [place] [address] Platelet 237 10 3/mcL Normal 130-400 [facility] ([place]) Comment on above: Performed By: #### M DW, CBC, ADIFF, BMP, ANEU, GFR, TROPHS, PBNP #### [place] [address] Platelet mean volume (Bld) [Entitic vol] 7.2 fL Low 7.4-10.4 [facility] ([place]) Comment on above: Performed By: #### M DW, CBC, ADIFF, BMP, ANEU, GFR, TROPHS, PBNP #### [facility] [address] [place], [place] [address] RBC 4.78 10 6/mcL Normal 4.20-5.40 [facility] ([place]) Comment on above: Performed By: #### M DW, CBC, ADIFF, BMP, ANEU, GFR, TROPHS, PBNP #### [address] [place], [place] [address] WBC 8.6 10 3/mcL Normal 4.6-10.8 [facility] ([place]) Comment on above: Performed By: #### M DW, CBC, ADIFF, BMP, ANEU, GFR, TROPHS, PBNP #### [address] [address] CNPNon 01-04-2024 CNPN Normal [facility] CT ANGIOGRAPHY CHEST W/CONTR Marcio 01-04-2024 [...] Date: 01/04/2024 6:51:36 PM Ordering Provider: ROSA Aranda [facility] ([place]) LABORATORYOrdered By: SYSTEM SYSTEM on 01-04-2024 [...] (Bld) [#/Vol] 4.78 106/mcL Normal 4.20 - 5.40 10^6/mcL AO Workflow SS Sodium [Moles/Vol] 141 mmol/L Normal 136 - 145 mmol/L AO ADM SS Troponin I.cardiac DL <= 0.01 ng/mL [Mass/Vol] ng/L Normal 0 - 51 ng/L AO ADM SS Comment on above: Interpretive Data: H igh Sensitive Troponin I Reference Ranges: Female: 0-51 ng/L Male: 0-76 ng/L Testing performed on Dimension EXL using a homogeneous sandwich chemiluminescent immunoassay based on Interior Define technology. Urea nitrogen [Mass/Vol] 11 mg/dL Normal 7 - 18 mg/dL AO ADM SS Urea nitrogen/Creatinine [Mass ratio] 13 ratio Normal 7 - 27 ratio AO ADM SS WBC (Bld) [#/Vol] 8.6 103/mcL Normal 4.6 - 10.8 10^3/mcL AO Workflow SS PBNPon 01-04-2024 Natriuretic peptide B (Bld) [Mass/Vol] 11 pg/mL Normal 0-125 [facility] ([place]) Comment on above: Result Comment: NT-p roBNP results of less than 300 pg/mL effectively rules out acute congestive heart failure with 99% negative predictive value. Performed By: #### M DW, CBC, ADIFF, BMP, ANEU, GFR, TROPHS, PBNP #### [address] [address] TROPHSon 01-04-2024 High Sensitivity Troponin I <4 Normal 0-51 [facility] ([place]) Comment on above: Result Comment: High Sensitive Troponin I Reference Ranges: Female: 0-51 ng/L Male: 0-76 ng/L Testing performed on Dimension EXL using a homogeneous sandwich chemiluminescent immunoassay based on Interior Define technology. Performed By: #### M DW, CBC, ADIFF, BMP, ANEU, GFR, TROPHS, PBNP #### [address] [address] Basic metabolic 2000 panelon 01-03-2024 Anion gap [Moles/Vol] 11 mmol/L Normal 8-15 [facility] Comment on above: Order Comment: Speci men Type: BLOOD SPECIMENOrdering Facility: [facility] Address: [address] [place] [address] Performed By: #### 2 4321-2, 19868-3, 98404-2 ####[facility] LABCLIA [id number] [place] [address] [place] Calcium [Mass/Vol] 9.7 mg/dL Normal 8.5-10.2 [facility] Comment on above: Order Comment: Speci men Type: BLOOD SPECIMENOrdering Facility: [facility] Address: [address] [place] [address] Performed By: #### 2 4321-2, 55066-3, 37803-4 ####[facility] LABCLIA [id number] [place] [address] [place] Chloride [Moles/Vol] 104 mmol/L Normal 98-107 [facility] Comment on above: Order Comment: Speci men Type: BLOOD SPECIMENOrdering Facility: [facility] Address: [address] [place] [address] Performed By: #### 2 4321-2, 17381-4, 42058-3 ####[facility] LABIA [id number] [place] [address] [place] CO2 [Moles/Vol] 25 mmol/L Normal 22-30 [facility] Comment on above: Order Comment: Speci men Type: BLOOD SPECIMENOrdering Facility: [facility] Address: [address] [place] [address] Performed By: #### 2 4321-2, 53162-5, 94591-9 ####[facility] LABIA [id number] [place] [id number] [place] Creatinine [Mass/Vol] 0.77 mg/dL Normal 0.58-0.96 [facility] Comment on above: Order Comment: Speci men Type: BLOOD SPECIMENOrdering Facility: [facility] Address: [address] [place] [address] Performed By: #### 2 4321-2, 03857-9, 66678-5 ####[facility] LABIA [id number] [place] [address] [place] Creatinine and Glomerular filtration rate.predicted panel (S/P/Bld) 97 mL/min/1.73m??? Normal >=60 [facility] Comment on above: Order Comment: Rashad irwin Type: BLOOD SPECIMENOrdering Facility: [facility] Address: [address] [place] [address] Result Comment: Jen mated Glomerular Filtration Rate [...] actual GFR. Performed By: #### 2 4321-2, 75592-2, 49629-2 ####[facility] LABIA [id number] [place] [address] [place] Glucose [Mass/Vol] 90 mg/dL Normal 74-99 [facility] Comment on above: Order Comment: Rashad irwin Type: BLOOD SPECIMENOrdering Facility: [facility] Address: [address] [place] [address] Result Comment: The [place] [employer] (ADA) provides guidance for cutoff [...] Standards of Medical Care in Diabetes 2016, [place] [employer]. Diabetes Care. 2016.39(Suppl 1). Performed By: #### 2 4321-2, 83458-2, 94440-1 ####[facility] LABCLIA [id number] [place] [id number] [place] Potassium [Moles/Vol] 4.4 mmol/L Normal 3.7-5.1 [facility] Comment on above: Order Comment: Speci men Type: BLOOD SPECIMENOrdering Facility: [facility] Address: [address] [place] [address] Performed By: #### 2 4321-2, , 14951-3 ####[facility] LABCLIA [id number] [place] [address] [place] Sodium [Moles/Vol] 140 mmol/L Normal 136-144 [facility] Comment on above: Order Comment: Speci men Type: BLOOD SPECIMENOrdering Facility: [facility] Address: [address] [place] [address] Performed By: #### 2 4321-2, , 88772-9 ####[facility] LABCLIA [id number] [place] [address] [place] Urea nitrogen [Mass/Vol] 16 mg/dL Normal 7-21 [facility] Comment on above: Order Comment: Speci men Type: BLOOD SPECIMENOrdering Facility: [facility] Address: [address] [place] [address] Performed By: #### 2 4321-2, , 86985-0 ####[facility] LABCLIA [id number] [place] [id number] [place] CBC W Auto Differential pane l (Bld)on 01-03-2024 Basophils (Bld) [#/Vol] 0.04 10*3/uL [facility] Basophils/100 WBC (Bld) 0.4 % [facility] Differential cell count method Nom (Bld) Auto [facility] Eosinophils (Bld) [#/Vol] 0.06 10*3/uL [facility] Eosinophils/100 WBC (Bld) 0.6 % [facility] Erythrocyte distribution width (RBC) [Ratio] 14.2 % 11.5 - 15.0 % [facility] Hematocrit (Bld) [Volume fraction] 48.0 % High 36.0 - 46.0 % [facility] Hemoglobin (Bld) [Mass/Vol] 14.6 g/dL 11.5 - 15.5 g/dL [facility] Immature granulocytes (Bld) [#/Vol] 0.04 10*3/uL [facility] Immature granulocytes/100 WBC (Bld) 0.4 % [facility] Interpretation and review of laboratory results Abnormal [facility] Lymphocytes (Bld) [#/Vol] 2.70 10*3/uL [facility] Lymphocytes/100 WBC (Bld) 27.7 % [facility] MCH (RBC) [Entitic mass] 29.0 pg 26.0 - 34.0 pg [facility] MCHC (RBC) [Mass/Vol] 30.4 g/dL Low 30.5 - 36.0 g/dL [facility] MCV (RBC) [Entitic vol] 95.2 fL 80.0 - 100.0 fL [facility] Monocytes (Bld) [#/Vol] 0.59 10*3/uL [facility] Monocytes/100 WBC (Bld) 6.0 % [facility] Neutrophils (Bld) [#/Vol] 6.33 10*3/uL [facility] Neutrophils/100 WBC (Bld) 64.9 % [facility] Nucleated RBC (Bld) [#/Vol] [facility] Nucleated RBC/100 WBC (Bld) [Ratio] 0.0 % /100 WBC [facility] Platelet mean volume (Bld) [Entitic vol] 9.9 fL 9.0 - 12.7 fL [facility] Platelets (Bld) [#/Vol] 262 10*3/uL [facility] RBC (Bld) [#/Vol] 5.04 10*6/uL 3.90 - 5.20 m/uL [facility] WBC (Bld) [#/Vol] 9.76 10*3/uL [facility] Basophils (Bld) [#/Vol] 0.04 10*3/uL Normal <0.11 [facility] Comment on above: Order Comment: Speci men Type: BLOOD SPECIMENOrdering Facility: [facility] Address: [address] [place] [address] Performed By: #### 5 7021-8 ####[facility] LABCLIA [id number] [place] [address] [place] Basophils/100 WBC (Bld) 0.4 % Normal [facility] Comment on above: Order Comment: Speci men Type: BLOOD SPECIMENOrdering Facility: [facility] Address: [address] [place] [address] Performed By: #### 5 7021-8 ####[facility] LABCLIA [id number] [place] [address] [place] Differential cell count method Nom (Bld) Auto Normal [facility] Comment on above: Order Comment: Speci men Type: BLOOD SPECIMENOrdering Facility: [facility] Address: [address] [place] [address] Performed By: #### 5 7021-8 ####[facility] LABCLIA [id number] [place] [address] [place] Eosinophils (Bld) [#/Vol] 0.06 10*3/uL Normal <0.46 [facility] Comment on above: Order Comment: Speci men Type: BLOOD SPECIMENOrdering Facility: [facility] Address: [address] [place] [address] Performed By: #### 5 7021-8 ####[facility] LABCLIA [id number] [place] [address] [place] Eosinophils/100 WBC (Bld) 0.6 % Normal [facility] Comment on above: Order Comment: Speci men Type: BLOOD SPECIMENOrdering Facility: [facility] Address: [address] [place] [address] Performed By: #### 5 7021-8 ####[facility] LABCLIA [id number] [address] [place] Erythrocyte distribution width (RBC) [Ratio] 14.2 % Normal 11.5-15.0 [facility] Comment on above: Order Comment: Speci men Type: BLOOD SPECIMENOrdering Facility: [facility] Address: [address] [place] [address] Performed By: #### 5 7021-8 ####[facility] LABCLIA [id number] [place] [address] [place] Hematocrit (Bld) [Volume fraction] 48.0 % High 36.0-46.0 [facility] Comment on above: Order Comment: Speci men Type: BLOOD SPECIMENOrdering Facility: [facility] Address: [address] [place] [address] Performed By: #### 5 7021-8 ####[facility] LABIA [id number] [place] [address] [place] Hemoglobin (Bld) [Mass/Vol] 14.6 g/dL Normal 11.5-15.5 [facility] Comment on above: Order Comment: Speci men Type: BLOOD SPECIMENOrdering Facility: [facility] Address: [address] [place] [address] Performed By: #### 5 7021-8 ####[facility] LABIA [id number] [place] [address] [place] Immature granulocytes (Bld) [#/Vol] 0.04 10*3/uL Normal <0.10 [facility] Comment on above: Order Comment: Speci men Type: BLOOD SPECIMENOrdering Facility: [facility] Address: [address] [place] [address] Performed By: #### 5 7021-8 ####[facility] LABCLIA [id number] [place] [address] [place] Immature granulocytes/100 WBC (Bld) 0.4 % Normal [facility] Comment on above: Order Comment: Speci men Type: BLOOD SPECIMENOrdering Facility: [facility] Address: [address] [place] [address] Performed By: #### 5 7021-8 ####[facility] LABCLIA [id number] [place] [address] [place] Lymphocytes (Bld) [#/Vol] 2.70 10*3/uL Normal 1.00-4.00 [facility] Comment on above: Order Comment: Speci men Type: BLOOD SPECIMENOrdering Facility: [facility] Address: [address] [place] [address] Performed By: #### 5 7021-8 ####[facility] LABCLIA [id number] [place] [address] [place] Lymphocytes/100 WBC (Bld) 27.7 % Normal [facility] Comment on above: Order Comment: Speci men Type: BLOOD SPECIMENOrdering Facility: [facility] Address: [address] [place] [address] Performed By: #### 5 7021-8 ####[facility] LABCLIA [id number] [place] [address] [place] MCH (RBC) [Entitic mass] 29.0 pg Normal 26.0-34.0 [facility] Comment on above: Order Comment: Speci men Type: BLOOD SPECIMENOrdering Facility: [facility] Address: [address] [place] [address] Performed By: #### 5 7021-8 ####[facility] LABCLIA [id number] [place] [address] [place] MCHC (RBC) [Mass/Vol] 30.4 g/dL Low 30.5-36.0 [facility] Comment on above: Order Comment: Speci men Type: BLOOD SPECIMENOrdering Facility: [facility] Address: [address] [place] [address] Performed By: #### 5 7021-8 ####[facility] LABCLIA [id number] [place] [address] [place] MCV (RBC) [Entitic vol] 95.2 fL Normal 80.0-100.0 [facility] Comment on above: Order Comment: Speci men Type: BLOOD SPECIMENOrdering Facility: [facility] Address: [address] [place] [address] Performed By: #### 5 7021-8 ####[facility] LABCLIA [id number] [place] [address] [place] Monocytes (Bld) [#/Vol] 0.59 10*3/uL Normal <0.87 [facility] Comment on above: Order Comment: Speci men Type: BLOOD SPECIMENOrdering Facility: [facility] Address: [address] [place] [address] Performed By: #### 5 7021-8 ####[facility] LABCLIA [id number] [place] [address] [place] Monocytes/100 WBC (Bld) 6.0 % Normal [facility] Comment on above: Order Comment: Speci men Type: BLOOD SPECIMENOrdering Facility: [facility] Address: [address] [place] [address] Performed By: #### 5 7021-8 ####[facility] LABCLIA [id number] [place] [address] [place] Neutrophils (Bld) [#/Vol] 6.33 10*3/uL Normal 1.45-7.50 [facility] Comment on above: Order Comment: Speci men Type: BLOOD SPECIMENOrdering Facility: [facility] Address: [address] [place] [address] Performed By: #### 5 7021-8 ####[facility] LABCLIA [id number] [place] [address] [place] Neutrophils/100 WBC (Bld) 64.9 % Normal [facility] Comment on above: Order Comment: Speci men Type: BLOOD SPECIMENOrdering Facility: [facility] Address: [address] [place] [address] Performed By: #### 5 7021-8 ####[facility] LABCLIA [id number] [place] [address] [place] Nucleated RBC (Bld) [#/Vol] 10*3/uL Normal <0.01 [facility] Comment on above: Order Comment: Speci men Type: BLOOD SPECIMENOrdering Facility: [facility] Address: [address] [place] [address] Performed By: #### 5 7021-8 ####[facility] LABCLIA [id number] [place] [address] [place] Nucleated RBC/100 WBC (Bld) [Ratio] 0.0 /100 WBC Normal [facility] Comment on above: Order Comment: Speci men Type: BLOOD SPECIMENOrdering Facility: [facility] Address: [address] [place] [address] Performed By: #### 5 7021-8 ####[facility] LABCLIA [id number] [place] [address] [place] Platelet mean volume (Bld) [Entitic vol] 9.9 fL Normal 9.0-12.7 [facility] Comment on above: Order Comment: Speci men Type: BLOOD SPECIMENOrdering Facility: [facility] Address: [address] [place] [address] Performed By: #### 5 7021-8 ####[facility] LABCLIA [id number] [place] [address] [place] Platelets (Bld) [#/Vol] 262 10*3/uL Normal 150-400 [facility] Comment on above: Order Comment: Speci men Type: BLOOD SPECIMENOrdering Facility: [facility] Address: [address] [place] [address] Performed By: #### 5 7021-8 ####[facility] [id number] [place] [address] [place] RBC (Bld) [#/Vol] 5.04 10*6/uL Normal 3.90-5.20 [facility] Comment on above: Order Comment: Speci men Type: BLOOD SPECIMENOrdering Facility: [facility] Address: [address] [place] [address] Performed By: #### 5 7021-8 ####[facility] [id number] [place] [address] [place] WBC (Bld) [#/Vol] 9.76 10*3/uL Normal 3.70-11.00 [facility] Comment on above: Order Comment: Speci men Type: BLOOD SPECIMENOrdering Facility: [facility] Address: [address] [place] [address] Performed By: #### 5 7021-8 ####[facility] [id number] [place] [address] [place] CNOVon 01-03-2024 CNOV Normal [facility] D dimer FEU PPP-mCncon 01-02 Fibrin D-dimer FEU (PPP) [Mass/Vol] 970 ng/mL FEU High <500 [facility] Comment on above: Order Comment: Speci men Type: BLOOD SPECIMENOrdering Facility: [facility] Address: [address] [place] [address] Result Comment: Froz en Plasma Aliquot Performed By: #### 4 8065-7 ####[facility] [id number] [place] [address] [place] D-DIMEROrdered By: Vance Soriano on 01-03-2024 Fibrin D-dimer FEU (PPP) [Mass/Vol] 970 High NINF [facility] Comment on above: Frozen Plasma Aliquo t ECG COMPLETEon 01-03-2024 Atrial Rate 75 BPM [facility] Calculated P [place] 51 degrees [facility] Calculated R [place] 48 degrees [facility] Calculated T [place] 35 degrees [facility] P-R Interval 194 ms [facility] QRS Duration 78 ms [facility] QT Interval 372 ms [facility] QTC Calculation (Bazett) 415 ms [facility] Ventricular Rate 75 BPM [facility] NORMAL SINUS RHYTHM NORMAL ECG Confirmed by MD THOMPSON QARAB ([id number]) on 01/03/2024 4:19:53 PM [facility] NAME : DARREN REINOSO PID : [id number] : 1980 Gender : Female Race : ORD : [id number] Procedure Date : Jan 03 2024 12:31:49 Edit Date : Jan 03 2024 16:20:00 Diagnosis: NORMAL SINUS RHYTHM NORMAL ECG Confirmed by MD THOMPSON QARAB ([id number]) on 01/03/2024 4:19:53 PM Test Reason : R07.9 Chest pain, unspecified type Location : 185 : [facility] Overread By : MD THOMPSON QARAB Edited By : MD THOMPSON QARAB Referred By : , Acquired by : , [facility] ECG COMPLETE Normal [facility] Fibrin D-dimer FEU (PPP) [Ma ss/Vol]Ordered By: Vance Grover on 01-03-2024 Interpretation and review of laboratory results Abnormal [facility] 500 ng/mL FEU is the D Dimer [...] >96.5% and a specificity of >38.8%. Reference: Righini M, et al. CONNIE 2014 311:1117 and Emil Beatty N et al. Odette Int Med 2016 165:253. [facility] Magnesium [facility] 01-02 Magnesium [Mass/Vol] 2.1 mg/dL Normal 1.7-2.3 [facility] Comment on above: Order Comment: Speci men Type: BLOOD SPECIMENOrdering Facility: [facility] Address: [address] [place] [address] Performed By: #### 2 4321-2, 85934-7, 47743-9 ####[facility] LABIA [id number] [place] NT-proBNP [facility] 01-02 Natriuretic peptide.B prohormone N-Terminal [Mass/Vol] <36 Normal <125 [facility] Comment on above: Order Comment: Speci men Type: BLOOD SPECIMENOrdering Facility: [facility] Address: [address] [place] [address] Performed By: #### 2 4321-2, 46365-2, 40426-5 ####[facility] LABIA [id number] [place] XR CHEST 2V FRONTAL/LATon XR CHEST 2V FRONTAL/LAT Normal [facility] XR Chest PA and Lateralon IMPRESSION: No acute radiographic abnormality. Wood Die Maker[facility] Transcribe Date/Time: Jan 03 2024 3:55P Dictated by : DELIO CALDWELL MD This examination was interpreted and the report reviewed and electronically signed by: DELIO CALDWELL MD on Jan 03 2024 3:55PM [email or web address] DIVISION OF RADIOLOGY * * *Final Report* [...] shows degenerative changes. DIVISION OF RADIOLOGY Provider, [facility] Carissa [facility] - 01/03/2024 * * *Final Report* * [...] changes. IMPRESSION IMPRESSION: No acute radiographic abnormality. Wood Die Maker: SARWAT Transcribe Date/Time: Jan 03 2024 3:55P Dictated by : DELIO CALDWELL MD This examination was interpreted and the report reviewed and electronically signed by: DELIO CALDWELL MD on Jan 03 2024 3:55PM [facility] Radiology Study observation (narrative) [facility] XR Chest PA and LateralOrder ed By: Ccf Provider on 01-03-2024 [facility] No Panel Informationon 11-22 IMPRESSION: Hepatic steatosis. Nonenlarged spleen. Wood Die Maker: [facility] Transcribe Date/Time: Nov 23 2023 11:03A Dictated by : GHAZALA HAQ MD This examination was interpreted and the report reviewed and electronically signed by: GHAZALA HAQ MD on Nov 23 2023 11:06AM [facility] RAD[facility] No Panel InformationOrdered By: Ccf Provider on 11-23-2023 [facility] US Abdomen RUQon 11-23-2023 * * *Final [...] cm, normal. There are no splenic lesions. [facility] RADI[facility] Provider, Latisha Viramontes - 11/23/2023 [...] lesions. IMPRESSION IMPRESSION: Hepatic steatosis. Nonenlarged spleen. 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 There are no splenic lesions. [facility] Provider, [facility] Carissa Viramontes - 11/23/2023 * * *Final Report* [...] lesions. IMPRESSION IMPRESSION: Hepatic steatosis. Nonenlarged spleen. Wood Die Maker: [employer] Transcribe Date/Time: Nov 23 2023 11:03A Dictated by : GHAZALA HAQ MD This examination was interpreted and the report reviewed and electronically signed by: GHAZALA HAQ MD on Nov 23 2023 11:06AM EST [facility] Radiology Study observation (narrative) [facility] AMYLASEon 11-16-2023 Amylase [Catalytic activity/Vol] 29 U/L Low 30 - 104 U/L [facility] Comprehensive metabolic 2000 panelon 11-16-2023 Albumin [Mass/Vol] 3.9 g/dL 3.9 - 4.9 g/dL [facility] ALP [Catalytic activity/Vol] 104 U/L 34 - 123 U/L [facility] ALT [Catalytic activity/Vol] 43 U/L High 7 - 38 U/L [facility] Anion gap [Moles/Vol] 10 mmol/L 8 - 15 mmol/L [facility] AST [Catalytic activity/Vol] 27 U/L 13 - 35 U/L [facility] Bilirubin [Mass/Vol] 0.3 mg/dL 0.2 - 1 .3 mg/dL [facility] Calcium [Mass/Vol] 9.4 mg/dL 8.5 - 10. 2 mg/dL [facility] Chloride [Moles/Vol] 106 mmol/L 98 - 10 7 mmol/L [facility] CO2 [Moles/Vol] 24 mmol/L 22 - 30 mmol/L [facility] Creatinine [Mass/Vol] 0.73 mg/dL 0.58 - 0.96 mg/dL [facility] GFR/1.73 sq M.predicted among non-blacks MDRD (S/P/Bld) [Vol rate/Area] 104 mL/min/{1.73_m2} - PINF [facility] Comment on above: Estimated Glomerular Filtration Rate [...] 103 mg/dL High 74 - 99 mg/dL [facility] Comment on above: The [place] Diab[employer] Association (ADA) provides guidance for [...] Standards of Medical Care in Diabetes 2016, [place] [employer]. Diabetes Care. 2016.39(Suppl 1). Potassium [Moles/Vol] 4.1 mmol/L 3.7 - 5.1 mmol/L [facility] Protein [Mass/Vol] 6.8 g/dL 6.3 - 8.0 g/dL [facility] Sodium [Moles/Vol] 140 mmol/L 136 - 144 mmol/L [facility] Urea nitrogen [Mass/Vol] 10 mg/dL 7 - 21 mg/dL [facility] LIPASEon 11-16-2023 Lipase [Catalytic activity/Vol] 13 U/L Low 16 - 61 U/L [facility] No Panel Informationon 11-15 Interpretation and review of laboratory results Abnormal [facility] CBC W Auto Differential pane l (Bld)on 11-15-2023 Basophils (Bld) [#/Vol] 0.03 10*3/uL NINF [facility] Basophils/100 WBC (Bld) 0.3 % [facility] Differential cell count method Nom (Bld) Auto [facility] Eosinophils (Bld) [#/Vol] 0.07 10*3/uL [facility] Eosinophils/100 WBC (Bld) 0.8 % [facility] Erythrocyte distribution width (RBC) [Ratio] 13.9 % 11.5 - 15.0 % [facility] Hematocrit (Bld) [Volume fraction] 45.2 % 36.0 - 46.0 % [facility] Hemoglobin (Bld) [Mass/Vol] 13.9 g/dL 11.5 - 15.5 g/dL [facility] Immature granulocytes (Bld) [#/Vol] 0.08 10*3/uL [facility] Immature granulocytes/100 WBC (Bld) 0.9 % [facility] Lymphocytes (Bld) [#/Vol] 2.59 10*3/uL [facility] Lymphocytes/100 WBC (Bld) 28.3 % [facility] MCH (RBC) [Entitic mass] 29.2 pg 26.0 - 34.0 pg [facility] MCHC (RBC) [Mass/Vol] 30.8 g/dL 30.5 - 36.0 g/dL [facility] MCV (RBC) [Entitic vol] 95.0 fL 80.0 - 100.0 fL [facility] Monocytes (Bld) [#/Vol] 0.64 10*3/uL [facility] Monocytes/100 WBC (Bld) 7.0 % [facility] Neutrophils (Bld) [#/Vol] 5.74 10*3/uL [facility] Neutrophils/100 WBC (Bld) 62.7 % [facility] Nucleated RBC (Bld) [#/Vol] [facility] Nucleated RBC/100 WBC (Bld) [Ratio] 0.0 % /100 WBC [facility] Platelet mean volume (Bld) [Entitic vol] 10.0 fL 9.0 - 12.7 fL [facility] Platelets (Bld) [#/Vol] 232 10*3/uL [facility] RBC (Bld) [#/Vol] 4.76 10*6/uL 3.90 - 5.20 m/uL [facility] WBC (Bld) [#/Vol] 9.15 10*3/uL [facility] Urinalysis complete panel (U )on 11-15-2023 Bacteria LM.HPF (Urine sed) [#/Area] Negative Negative /HPF [facility] Bilirubin Ql (U) Negative Negative [facility] Clarity (Unsp spec) Clear Clear [facility] Color (U) Yellow Yellow [facility] Epithelial cells LM.HPF (Urine sed) [#/Area] None Seen /HPF [facility] Glucose Test strip (U) [Mass/Vol] Negative Negative [facility] Hemoglobin Ql (U) Negative Negative [facility] Hyaline casts (Urine sed) [#/Area] 0 /[LPF] 0 /LPF [facility] Ketones Ql (U) Negative Negative [facility] Leukocyte esterase Test strip Ql (U) Negative Negative [facility] Nitrite Ql (U) Negative Negative [facility] pH (U) 6.5 [pH] NINF - 8.5 [facility] Protein (U) [Mass/Vol] Negative Negative [facility] RBC LM.HPF (Urine sed) [#/Area] 0-2 /HPF 0-2 /HPF [facility] Specific gravity (U) [Rel density] 1.009 1.005 - 1.030 [facility] Urobilinogen Ql (U) 0.2 EU/dL 0.2-1.0 EU/dL [facility] WBC LM.HPF (Urine sed) [#/Area] 0-5 /HPF 0-5 /HPF [facility] This test was develo ped and its performance characteristics determined by [facility] Laboratory [facility] [place] ([facility]). It has not been cleared or approved by the FDA. [facility] is regulated under CLIA as qualified to perform high-complexity testing. This test is used for clinical purposes. It should not be regarded as investigational or for research. [facility] XR Chest PA and Lateralon IMPRESSION: No acute radiographic abnormality. Wood Die Maker: PSCB Transcribe Date/Time: Jul 09 2023 3:43P Dictated by : DELIO CALDWELL MD This examination was interpreted and the report reviewed and electronically signed by: DELIO CALDWELL MD on Jul 09 2023 3:43PM [facility] [[email or web address]] DIVISION OF RADIOLOGY * * *Final Report* [...] the spine. DIVISION OF RADIOLOGY [facility] - 07/09/2023 * * *Final Report* [...] spine. IMPRESSION IMPRESSION: No acute radiographic abnormality. Wood Die Maker: PSCB Transcribe Date/Time: Jul 09 2023 3:43P Dictated by : DELIO CALDWELL MD This examination was interpreted and the report reviewed and electronically signed by: DELIO CALDWELL MD on Jul 09 2023 3:43PM EST [facility] Radiology Study observation (narrative) [facility] XR Chest PA and LateralOrder ed By: Ccf Provider on 07-09-2023 [facility] Basophil percentageOrdered B y: Kamron Reza on 05-13-2023 Creatinine [Mass/Vol] 1.1 mg/dL 0.55-1.02 [facility] Laboratory - Chemistry and C hemistry - challengeOrdered By: Kamron Cobb on 05-13-2023 GFR/1.73 sq M.predicted among non-blacks MDRD (S/P/Bld) [Vol rate/Area] 58.0000 mL/min/{1.73_m2} >60 [facility] Glucose Glucometer (BldC) [M ass/Vol]Ordered By: Steve Tirado on 05-03-2023 Glucose [Mass/Vol] 150 mg/dL 74-106 [facility] Comment on above: MANAGEMENT OF PATIEN T CARE PER NURSING PROTOCOL XR Chest PA and Lateralon IMPRESSION: No acute radiographic abnormality. Wood Die Maker: PSCB Transcribe Date/Time: Apr 21 2023 2:47P Dictated by : KAREL PALACIO MD This examination was interpreted and the report reviewed and electronically signed by: KAREL PALACIO MD on Apr 21 2023 2:47PM [facility] [[email or web address]] DIVISION OF RADIOLOGY * * *Final Report* [...] soft tissues: Unremarkable. DIVISION OF RADIOLOGY Provider, [facility] - 04/21/2023 * * *Final Report* * [...] Unremarkable. IMPRESSION IMPRESSION: No acute radiographic abnormality. Wood Die Maker: SARWAT Transcribe Date/Time: Apr 21 2023 2:47P Dictated by : KAREL PALACIO MD This examination was interpreted and the report reviewed and electronically signed by: KAREL PALACIO MD on Apr 21 2023 2:47PM EST [facility] Radiology Study observation (narrative) [facility] XR Chest PA and LateralOrder ed By: Ccf Provider on 04-21-2023 [facility] Glucose Glucometer (BldC) [M ass/Vol]Ordered By: Steve Tirado on 02-15-2023 Glucose [Mass/Vol] 132 mg/dL 74-106 [facility] Comment on above: MANAGEMENT OF PATIEN T CARE PER NURSING PROTOCOL Glucose Glucometer (BldC) [M ass/Vol]Ordered By: Steve Tirado on 01-04-2023 Glucose [Mass/Vol] 111 mg/dL 74-106 [facility] Comment on above: MANAGEMENT OF PATIEN T CARE PER NURSING PROTOCOL HEMOGLOBIN A1C (POC)on 11-23 HbA1c (Bld) [Mass fraction] 6.2 % 4.2 - 5.6 % [facility] CBC W Auto Differential pane l (Bld)on 08-24-2022 Basophils (Bld) [#/Vol] 0.03 10*3/uL <0.11 k/uL [facility] Basophils/100 WBC (Bld) 0.3 % [facility] Differential cell count method Nom (Bld) Auto [facility] Eosinophils (Bld) [#/Vol] 0.09 10*3/uL <0.46 k/uL [facility] Eosinophils/100 WBC (Bld) 0.8 % [facility] Erythrocyte distribution width (RBC) [Ratio] 13.9 % 11.5 - 15.0 % [facility] Hematocrit (Bld) [Volume fraction] 45.9 % 36.0 - 46.0 % [facility] Hemoglobin (Bld) [Mass/Vol] 13.8 g/dL 11.5 - 15.5 g/dL [facility] Immature granulocytes (Bld) [#/Vol] 0.05 10*3/uL <0.10 k/uL [facility] Immature granulocytes/100 WBC (Bld) 0.5 % [facility] Lymphocytes (Bld) [#/Vol] 2.69 10*3/uL 1.00 - 4.00 k/uL [facility] Lymphocytes/100 WBC (Bld) 25.1 % [facility] MCH (RBC) [Entitic mass] 28.9 pg 26.0 - 34.0 pg [facility] MCHC (RBC) [Mass/Vol] 30.1 g/dL Low 30.5 - 36.0 g/dL [facility] MCV (RBC) [Entitic vol] 96.0 fL 80.0 - 100.0 fL [facility] Monocytes (Bld) [#/Vol] 0.67 10*3/uL <0.87 k/uL [facility] Monocytes/100 WBC (Bld) 6.3 % [facility] Neutrophils (Bld) [#/Vol] 7.17 10*3/uL 1.45 - 7.50 k/uL [facility] Neutrophils/100 WBC (Bld) 67.0 % [facility] Nucleated RBC (Bld) [#/Vol] <0.01 k/uL [facility] Nucleated RBC/100 WBC (Bld) [Ratio] 0.0 /100 WBC [facility] Platelet mean volume (Bld) [Entitic vol] 10.1 fL 9.0 - 12.7 fL [facility] Platelets (Bld) [#/Vol] 284 10*3/uL 150 - 400 k/uL [facility] RBC (Bld) [#/Vol] 4.78 10*6/uL 3.90 - 5.20 m/uL [facility] WBC (Bld) [#/Vol] 10.70 10*3/uL 3.70 - 11.00 k/uL [facility] XR Shoulder - left 3 Viewson 08-23-2022 IMPRESSION: Findings are suggestive of mild degenerative changes in the left shoulder. Wood Die Maker: SARWAT Transcribe Date/Time: Aug 23 2022 4:12P Dictated by : DELIO CALDWELL MD This examination was interpreted and the report reviewed and electronically signed by: DELIO CALDWELL MD on Aug 23 2022 4:13PM [facility] [[email or web address]] DIVISION OF RADIOLOGY * * *Final Report* [...] soft tissue swelling. DIVISION OF RADIOLOGY Provider, [facility] - 08/23/2022 * * *Final Report* * [...] mild degenerative changes in the left shoulder. Wood Die Maker: SARWAT Transcribe Date/Time: Aug 23 2022 4:12P Dictated by : DELIO CALDWELL MD This examination was interpreted and the report reviewed and electronically signed by: DELIO CALDWELL MD on Aug 23 2022 4:13PM EST [facility] XR Shoulder - left 3 ViewsOr dered By: Ccf Provider on 08-23-2022 [facility] XR Shoulder - left 3 Viewson 08-20-2022 Radiology Study observation (narrative) [facility] BHCG (SERUM)on 06-30-2022 B-HCG (SERUM) Negative Normal NEGATIVE [facility] Comment on above: Order Comment: Comme nt: AMBULATORY POD 17 Result Comment: Serum Test is more Sensitive than a Urine Test. Please Note Threshold Values: SERUM - 10mlU/mL URINE - 20mlU/mL Performed By: #### L [id number] #### ML - [facility] [address] [place] [address] HCG.beta subunit Qnon 2022 Beta hCG, Serum Negative NEGATIVE [facility] OPERATIVE REPORTon OPERATIVE REPORT [facility] [place] [address] HEALTH INFORMATION MANAGEMENT OPERATIVE REPORT Patient: ARLETHDARREN Garcia JOSEPH N M.D. [id number] F Status: [facility] AMB DATE OF SURGERY: 06/30/2022 SURGEON: [...] colonoscopy in 10 years. Report#: Dict ID [id number] / Int ID [id number] 07/01/22 0808 _ ARAVIND ROQUE M.D. cc: ARAVIND ROQUE M.D. << Signature on File>> Reported By: ARAVIND ROQUE M.D. Signed By: ARAVIND ROQUE M.D. Tests performed at: [address] [address] Normal [facility] OPERATIVE REPORT [place] [address] HEALTH INFORMATION MANAGEMENT OPERATIVE REPORT Patient: DARREN REINOSO ARAVIND ROUQE M.D. [id number] F Status: [facility] AMB DATE OF SURGERY: 06/30/2022 SURGEON: [...] FINDINGS: Normal upper endoscopy. Report#: Dict ID [id number] / Int ID [id number] 07/01/22 0808 _ ARAVIND ROQUE M.D. cc: ARAVIND ROQUE M.D. << Signature on File>> Reported By: ARAVIND ROQUE M.D. Signed By: ARAVIND ROQUE M.D. Tests performed at: [place] [address] [place] [address] Normal [facility] SURGICALon 06-30-2022 SURGICAL Duodenum - BX FINAL DIAGNOSIS: DUODENUM, BIOPSY: FRAGMENTS OF SMALL INTESTINAL MUCOSA, NO PATHOLOGIC DIAGNOSIS, SEE COMMENT. COMMENT: Villous architecture is preserved; no parasites are identified Dictated by: MEY KENNEDY M.D. MICROSCOPIC DESCRIPTION: SLIDE(S) EXAMINED. [facility] 07/02/2022 GROSS DESCRIPTION: Labeled duodenal biopsy. Received in formalin are two fragments of white to pink-newell soft tissues measuring 0.4 x 0.3 x 0.2 cm in aggregate. Specimen is submitted in toto in one cassette. [facility] 07/01/2022 CLINICAL DATA: PROCEDURE: EGD with biopsy, colonoscopy PRE-OP: Epigastric pain, rectal bleeding, diarrhea POST-OP: Normal EGD, normal colon HISTORY: N/A Signed *Electronically Signed* MEY KENNEDY M.D. 07/02/22 1148 Normal [facility] Comment on above: Performed By: #### P -S #### ML - [facility] [id number] [place] [address] XR Knee - right 4 Viewson IMPRESSION: Osteoarthritis as described. Wood Die Maker: SARWAT Transcribe Date/Time: May 13 2022 1:20P Dictated by : EVITA ELLINGTON MD This examination was interpreted and the report reviewed and electronically signed by: EVITA ELLINGTON MD on May 13 2022 1:22PM [facility] [[email or web address]] DIVISION OF RADIOLOGY * * *Final Report* [...] Tricompartmental osteophyte production. DIVISION OF RADIOLOGY Provider, [facility] Carissa [facility] - 05/13/2022 * * *Final Report* * [...] osteophyte production. IMPRESSION IMPRESSION: Osteoarthritis as described. Wood Die Maker: SARWAT Transcribe Date/Time: May 13 2022 1:20P Dictated by : EVITA ELLINGTON MD This examination was interpreted and the report reviewed and electronically signed by: EVITA ELLINGTON MD on May 13 2022 1:22PM EST [facility] Radiology Study observation (narrative) [facility] XR Knee - right 4 ViewsOrder ed By: Ccf Provider on 05-13-2022 [facility] UA DIP, URINE (POC)on 2021 BILIRUBIN UA (POCT) Negative Negative [facility] CLARITY UA (POCT) Clear [facility] COLOR UA (POCT) Yellow [facility] GLUCOSE UA (POCT) Negative Negative mg/dL [facility] HEMOGLOBIN/BLOOD UA (POCT) Negative Negative [facility] KETONE UA (POCT) Negative Negative mg/dL [facility] LEUKOCYTES UA (POCT) Negative Negative [facility] NITRITE UA (POCT) Negative [facility] PH UA (POCT) 5.5 4.5 - 8.0 [facility] Protein Ql (U) Negative Negative mg/dL [facility] SPECIFIC GRAVITY UA (POCT) 1.020 1.005 - 1.030 [facility] UROBILINOGEN UA (POCT) 0.2 E.U./dL [facility] E.U./dL [facility] BILIRUBIN UA (POCT) Negative Negative [facility] CLARITY UA (POCT) Clear [facility] COLOR UA (POCT) Yellow [facility] GLUCOSE UA (POCT) Negative Negative mg/dL [facility] HEMOGLOBIN/BLOOD UA (POCT) Negative Negative [facility] KETONE UA (POCT) Negative Negative mg/dL [facility] LEUKOCYTES UA (POCT) Negative [facility] NIT[facility]A (POCT) Negative Negative [facility] PH UA (POCT) 5.5 4.5 - 8.0 [facility] Protein Ql (U) Negative Negative mg/dL [facility] SPECIFIC GRAVITY UA (POCT) >=1.030 1.005 - 1.030 [facility] UROBILINOGEN UA (POCT) 0.2 E.U./dL [facility] E.U./dL [facility] No Panel Informationon 03-30 [facility] XR Lumbar spine AP and Later ephraim 02-09-2022 IMPRESSION: Lumbar s pine degenerative changes as described above. Wood Die Maker: PSCB Transcribe Date/Time: Feb 09 2022 4:00P Dictated by : DELIO CALDWELL MD This examination was interpreted and the report reviewed and electronically signed by: DELIO CALDWELL MD on Feb 09 2022 4:02PM [facility] [[email or web address]] DIVISION OF RADIOLOGY * * *Final Report* [...] spine are presented. FINDINGS: There are five dii-ovs-fstyyws lumbar vertebrae. No fracture or subluxations are noted. Right-sided curvature seen on AP view. There appears be L2-3 and L3-4 mild disc space narrowing. There is mild osteophyte formation. Others: There are 2 surgical evaluation clips in the pelvis. DIVISION OF RADIOLOGY Provider, [facility] Carissa fel[place] - 02/09/2022 * * *Final Report* * [...] spine are presented. FINDINGS: There are five ewp-rux-iylvyzx lumbar vertebrae. No fracture or subluxations are noted. Right-sided curvature seen on AP view. There appears be L2-3 and L3-4 mild disc space narrowing. There is mild osteophyte formation. Others: There are 2 surgical evaluation clips in the pelvis. IMPRESSION IMPRESSION: Lumbar spine degenerative changes as described above. Wood Die Maker: SARWAT Transcribe Date/Time: Feb 09 2022 4:00P Dictated by : DELIO CALDWELL MD This examination was interpreted and the report reviewed and electronically signed by: DELIO CALDWELL MD on Feb 09 2022 4:02PM EST [facility] Radiology Study observation (narrative) [facility] XR Lumbar spine AP and Later alOrdered By: Ccf Provider on 02-09-2022 [facility] LIPID PANEL BASICon 10-10-19 22 Cholesterol [Mass/Vol] 163 mg/dL <200 mg/dL [facility] Cholesterol in HDL [Mass/Vol] 49 mg/dL >39 mg/dL [facility] Cholesterol in LDL [Mass/Vol] 68 mg/dL <100 mg/dL [facility] Cholesterol in LDL/Cholesterol in HDL [Mass ratio] 1.39 {ratio} <2.54 [facility] Cholesterol in VLDL [Mass/Vol] 46 mg/dL High <30 mg/dL [facility] Cholesterol non HDL [Mass/Vol] 114 mg/dL <130 mg/dL [facility] Cholesterol.total/Chol esterol in HDL [Mass ratio] 3.33 {ratio} <5.10 [facility] Fasting Time 3 hrs [facility] Triglyceride [Mass/Vol] 228 mg/dL High <150 mg/dL [facility] ANES POSTPROC EVALon 022 ANES POSTPROC EVAL HNO ID: [id number] Author: Jean Garcia MD Service: Anesthesiology Author Type: Physician Type: Anesthesia Postprocedure Evaluation Filed: 07/23/2021 1:48 PM Note Text: POST ANESTHESIA EVALUATION NOTE : 1980 Procedure Summary Date: 07/23/21 Room / Location: OR OR / OR OR Anesthesia Start: 1128 Anesthesia [...] July 23, 2021 TIME: 1:48 PM CSN: [id number] [facility] ANES PRE-OPon 07-23-2021 ANES PRE-OP HNO ID: [id number] Author: Jean Garcia MD Service: Anesthesiology Author Type: Physician Type: Anesthesia Preprocedure Evaluation Filed: 07/23/2021 10:21 AM Note Text: ANESTHESIOLOGY DAY OF SURGERY NOTE : 1980 Procedure Information Date/Time: 07/23/21 112 Procedure: RELEASE TRIGGER THUMB AND RIGHT MIDDLE [...] July 23, 2021 TIME: 10:20 AM CSN: [id number] [facility] OPERATIVE NOon 07-23-2021 OPERATIVE NO HNO ID: [id number] Author: Duran Blunt MD Service: Orthopaedic Surgery Author Type: Physician Type: Operative Report Filed: 07/23/2021 12:34 PM Note Text: OPERATIVE/PROCEDURE REPORT LOG ID: [id number] Surgery/Procedure Date: 07/23/2021 Incision/Procedure Start Time: 11:50 AM Incision Close/Procedure End Time: 12:12 PM Surgeon(s)/Proceduralist(s) and Customer Service Manager(s): Surgeon(s) and Role: * Duran Blunt MD - Primary Nurse Practitioner: Ninoska Ortiz APRN.CNP Procedure(s): right thumb and middle trigger releases. [...] 23, 2021 TIME: 12:32 PM PAGER/CONTACT #: [facility] XR Chest PA and Lateralon IMPRESSION: Slight prominence of the pulmonary markings. Wood Die Maker: PSCB Transcribe Date/Time: Apr 24 2021 12:05P Dictated by : DELIO CALDWELL MD This examination was interpreted and the report reviewed and electronically signed by: DELIO CALDWELL MD on Apr 24 2021 12:06PM [facility] [[email or web address] DIVISION OF RADIOLOGY * * *Final Report* [...] in the spine. DIVISION OF RADIOLOGY Provider, [facility] - 04/24/2021 * * *Final Report* * [...] IMPRESSION: Slight prominence of the pulmonary markings. Wood Die Maker: SARWAT Transcribe Date/Time: Apr 24 2021 12:05P Dictated by : DELIO CALDWELL MD This examination was interpreted and the report reviewed and electronically signed by: DELIO CALDWELL MD on Apr 24 2021 12:06PM EST [facility] Radiology Study observation (narrative) [facility] XR Chest PA and LateralOrder ed By: Ccf Provider on 04-24-2021 [facility] XR Chest PA and Lateralon IMPRESSION: No acute radiographic abnormality. Wood Die Maker: SARWAT Transcribe Date/Time: Mar 12 2021 2:31P Dictated by : KAREL PALACIO MD This examination was interpreted and the report reviewed and electronically signed by: KAREL PALACIO MD on Mar 12 2021 2:32PM [facility] [[email or web address] DIVISION OF RADIOLOGY * * *Final Report* [...] soft tissues: Unremarkable. DIVISION OF RADIOLOGY Provider, [facility] - 03/12/2021 * * *Final Report* * [...] Unremarkable. IMPRESSION IMPRESSION: No acute radiographic abnormality. Wood Die Maker: SARWAT Transcribe Date/Time: Mar 12 2021 2:31P Dictated by : KAREL PALACIO MD This examination was interpreted and the report reviewed and electronically signed by: KAREL PALACIO MD on Mar 12 2021 2:32PM EST [facility] Radiology Study observation (narrative) [facility] XR Chest PA and LateralOrder ed By: Ccf Provider on 03-12-2021 [facility] XR Chest PA and Lateralon IMPRESSION: No acute radiographic abnormality. Wood Die Maker: PSCB Transcribe Date/Time: Jan 24 2021 4:10P Dictated by : KAREL PALACIO MD This examination was interpreted and the report reviewed and electronically signed by: KAREL PALACIO MD on Jan 24 2021 4:11PM EST DIVISION OF RADIOLOGY * * *Final [...] soft tissues: Unremarkable. DIVISION OF RADIOLOGY Provider, [facility] Carissa [facility] - 01/24/2021 * * *Final Report* [...] Unremarkable. IMPRESSION IMPRESSION: No acute radiographic abnormality. Wood Die Maker: SARWAT Transcribe Date/Time: Jan 24 2021 4:10P Dictated by : KAREL PALACIO MD This examination was interpreted and the report reviewed and electronically signed by: KAREL PALACIO MD on Jan 24 2021 4:11PM EST [facility] Radiology Study observation (narrative) [facility] XR Chest PA and LateralOrder ed By: Ccf Provider on 01-24-2021 [facility] XR Chest PA and Lateralon IMPRESSION: Stable exam without acute findings. Wood Die Maker: SARWAT Transcribe Date/Time: Nov 12 2020 11:27A Dictated by : DELIO CALDWELL MD This examination was interpreted and the report reviewed and electronically signed by: DELIO CALDWELL MD on Nov 12 2020 11:28AM [facility] [[email or web address] DIVISION OF RADIOLOGY * * *Final Report* [...] DIVISION OF RADIOLOGY Provider, Latisha Viramontes - 11/12/2020 * * *Final Report* * [...] IMPRESSION IMPRESSION: Stable exam without acute findings. Wood Die Maker: PSCB Transcribe Date/Time: Nov 12 2020 11:27A Dictated by : DELIO CALDWELL MD This examination was interpreted and the report reviewed and electronically signed by: DELIO CALDWELL MD on Nov 12 2020 11:28AM EST [facility] Radiology Study observation (narrative) [facility] XR Chest PA and LateralOrder ed By: Ccf Provider on 11-12-2020 [facility] Vital Signs Date Time Vital Sign Value Performing Clinician Facility 12-25-2024 14:59-0400 Body temperature 98.1 [degF] Caryn 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 Work Phone: [facility] 12-25-2024 14:59-0400 Diastolic blood pressure 78 mm[Hg] Caryn 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 Work Phone: [facility] 12-25-2024 14:59-0400 Heart rate 102 /min Caryn 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 Work Phone: [facility] 12-25-2024 14:59-0400 Respiratory rate 16 /min Caryn 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 Work Phone: [facility] 12-25-2024 14:59-0400 SaO2% (BldA) [Mass fraction] 96 % Caryn 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 Work Phone: [facility] 12-25-2024 14:59-0400 Systolic blood pressure 130 mm[Hg] Caryn 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 Work Phone: [facility] 12-25-2024 02:12-0400 Body temperature 99.1 [degF] Dr. Babar Phillip MD Work Phone: [facility] 12-25-2024 02:12-0400 Diastolic blood pressure 63 mm[Hg] Dr. Babar Phillip MD Work Phone: [phone] [place] [address] 12-25-2024 02:12-0400 Heart rate 91 /min Dr. Babar Phillip MD Work Phone: [facility] 12-25-2024 02:12-0400 Respiratory rate 16 /min Dr. Babar Phillip MD Work Phone: [facility] 12-25-2024 02:12-0400 SaO2% (BldA) [Mass fraction] 99 % Dr. Babar Phillip MD Work Phone: [facility] 12-25-2024 02:12-0400 Systolic blood pressure 133 mm[Hg] Dr. Babar Phillip MD Work Phone: [phone] [place] [address] 12-24-2024 22:17-0400 Body height 160.[address] Babar Phillip MD Work Phone: [facility] 12-24-2024 22:17-0400 Body mass index (BMI) [Ratio] 56.3 kg/m2 Dr. Babar Phillip MD Work Phone: [facility] 12-24-2024 22:17-0400 Body weight 144.[address] Babar Phillip MD Work Phone: [facility] 12-24-2024 14:35-0400 Body mass index (BMI) [Ratio] 57.74 kg/m2 Yolanda Swank 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 Work Phone: [facility] 12-24-2024 14:35-0400 Body temperature 98.4 [degF] Yolanda Swank 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 Work Phone: [facility] 12-24-2024 14:35-0400 Body weight 143.2 kg Yolanda Swank 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 Work Phone: [facility] 12-24-2024 14:35-0400 Diastolic blood pressure 82 mm[Hg] Yolanda Swank 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 Work Phone: [facility] 12-24-2024 14:35-0400 Heart rate 94 /min Yolanda Swank 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 Work Phone: [facility] 12-24-2024 14:35-0400 Respiratory rate 18 /min Yolanda Swank 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 Work Phone: [facility] 12-24-2024 14:35-0400 SaO2% (BldA) [Mass fraction] 97 % Yolanda Swank 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 Work Phone: [facility] 12-24-2024 14:35-0400 Systolic blood pressure 130 mm[Hg] Yolanda Swank 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 Work Phone: [facility] 11-20-2024 07:26-0400 Body mass index (BMI) [Ratio] 57.8 kg/m2 Caryn Sebastián 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 Work Phone: [facility] 11-20-2024 07:26-0400 Body temperature 97 [degF] Caryn 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 Work Phone: [facility] 11-20-2024 07:26-0400 Body weight 143.34 kg Caryn 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 Work Phone: [facility] 11-20-2024 07:26-0400 Diastolic blood pressure 82 mm[Hg] Caryn 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 Work Phone: [facility] 11-20-2024 07:26-0400 Heart rate 87 /min Caryn 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 Work Phone: [facility] 11-20-2024 07:26-0400 Respiratory rate 16 /min Caryn 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 Work Phone: [facility] 11-20-2024 07:26-0400 SaO2% (BldA) [Mass fraction] 97 % Caryn 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 Work Phone: [facility] 11-20-2024 07:26-0400 Systolic blood pressure 122 mm[Hg] Caryn 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 Work Phone: [facility] 10-20-2024 11:22-0400 Body mass index (BMI) [Ratio] 58.53 kg/m2 Caryn 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 Work Phone: [facility] 10-20-2024 11:22-0400 Body weight 145.15 kg Caryn 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 Work Phone: [facility] 10-20-2024 11:22-0400 Diastolic blood pressure 78 mm[Hg] Caryn 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 Work Phone: [facility] 10-20-2024 11:22-0400 Heart rate 78 /min Caryn 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 Work Phone: [facility] 10-20-2024 11:22-0400 Respiratory rate 16 /min Caryn 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 Work Phone: [facility] 10-20-2024 11:22-0400 SaO2% (BldA) [Mass fraction] 97 % Caryn 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 Work Phone: [facility] 10-20-2024 11:22-0400 Systolic blood pressure 126 mm[Hg] Caryn 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 Work Phone: [facility] 10-17-2024 13:34-0400 Body mass index (BMI) [Ratio] 58.35 kg/m2 Charis Click 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 Work Phone: [facility] 10-17-2024 13:34-0400 Body weight 144.7 kg Charis Click 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 Work Phone: [facility] 10-17-2024 13:34-0400 Diastolic blood pressure 72 mm[Hg] Charis Click 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 Work Phone: [facility] 10-17-2024 13:34-0400 Heart rate 82 /min Charis Click 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 Work Phone: [facility] 10-17-2024 13:34-0400 Respiratory rate 17 /min Charis Click 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 Work Phone: [facility] 10-17-2024 13:34-0400 SaO2% (BldA) [Mass fraction] 96 % Charis Click 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 Work Phone: [facility] 10-17-2024 13:34-0400 Systolic blood pressure 122 mm[Hg] Charis Click 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 Work Phone: [facility] 10-11-2024 11:03-0400 Body mass index (BMI) [Ratio] 58.35 kg/m2 Caryn 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 Work Phone: [facility] 10-11-2024 11:03-0400 Body weight 144.7 kg Caryn 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 Work Phone: [facility] 10-11-2024 11:03-0400 Diastolic blood pressure 78 mm[Hg] Caryn 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 Work Phone: [facility] 10-11-2024 11:03-0400 Heart rate 78 /min Caryn 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 Work Phone: [facility] 10-11-2024 11:03-0400 Respiratory rate 16 /min Caryn 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 Work Phone: [facility] 10-11-2024 11:03-0400 SaO2% (BldA) [Mass fraction] 92 % Caryn 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 Work Phone: [facility] 10-11-2024 11:03-0400 Systolic blood pressure 128 mm[Hg] Caryn 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 Work Phone: [facility] 07-27-2024 13:02-0400 Body mass index (BMI) [Ratio] 57.25 kg/m2 Caryn 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 Work Phone: [facility] 07-27-2024 13:02-0400 Body weight 141.98 kg Caryn 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 Work Phone: [facility] 07-27-2024 13:02-0400 Diastolic blood pressure 78 mm[Hg] Caryn 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 Work Phone: [facility] 07-27-2024 13:02-0400 Heart rate 90 /min Caryn 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 Work Phone: [facility] 07-27-2024 13:02-0400 Respiratory rate 16 /min Caryn 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 Work Phone: [facility] 07-27-2024 13:02-0400 SaO2% (BldA) [Mass fraction] 97 % Caryn 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 Work Phone: [facility] 07-27-2024 13:02-0400 Systolic blood pressure 122 mm[Hg] Caryn 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 Work Phone: [facility] 07-13-2024 16:09-0500 Body mass index (BMI) [Ratio] 58.06 kg/m2 Janie Vinson 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 Work Phone: [facility] 07-13-2024 16:09-0500 Body temperature 98.49 [degF] Janie Vinson 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 Work Phone: [facility] 07-13-2024 16:09-0500 Body weight 144 kg Janie Vinson 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 Work Phone: [facility] 07-13-2024 16:09-0500 Diastolic blood pressure 87 mm[Hg] Janie Vinson 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 Work Phone: [facility] 07-13-2024 16:09-0500 Heart rate 88 /min Janie Vinson 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 Work Phone: [facility] 07-13-2024 16:09-0500 Respiratory rate 22 /min Janie Vinson 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 Work Phone: [facility] 07-13-2024 16:09-0500 SaO2% (BldA) [Mass fraction] 97 % Janie Vinson 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 Work Phone: [facility] 07-13-2024 16:09-0500 Systolic blood pressure 146 mm[Hg] Janie Vinson 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 Work Phone: [facility] 06-30-2024 13:03-0500 Body mass index (BMI) [Ratio] 57.61 kg/m2 Caryn 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 Work Phone: [facility] 06-30-2024 13:03-0500 Body weight 142.88 kg Caryn 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 Work Phone: [facility] 06-30-2024 13:03-0500 Diastolic blood pressure 72 mm[Hg] Caryn 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 Work Phone: [facility] 06-30-2024 13:03-0500 Heart rate 82 /min Caryn 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 Work Phone: [facility] 06-30-2024 13:03-0500 Respiratory rate 16 /min Caryn 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 Work Phone: [facility] 06-30-2024 13:03-0500 SaO2% (BldA) [Mass fraction] 99 % Caryn 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 Work Phone: [facility] 06-30-2024 13:03-0500 Systolic blood pressure 128 mm[Hg] Caryn 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 Work Phone: [facility] 06-16-2024 13:19-0500 Body height 157.5 cm Elle Boone MD Work Phone: [facility] 06-16-2024 13:19-0500 Body mass index (BMI) [Ratio] 57.43 kg/m2 Elle Boone MD Work Phone: [facility] 06-16-2024 13:19-0500 Body weight 142.43 kg Elle Boone MD Work Phone: [facility] 06-16-2024 13:19-0500 Diastolic blood pressure 90 mm[Hg] Elle Boone MD Work Phone: [facility] 06-16-2024 13:19-0500 Heart rate 82 /min Elle Boone MD Work Phone: [facility] 06-16-2024 13:19-0500 Respiratory rate 14 /min Elle Boone MD Work Phone: [facility] 06-16-2024 13:19-0500 SaO2% (BldA) [Mass fraction] 98 % Elle Boone MD Work Phone: [facility] 06-16-2024 13:19-0500 Systolic blood pressure 146 mm[Hg] Elle Boone MD Work Phone: [facility] 06-16-2024 13:05-0500 Body height 157.5 cm Pulm Wstr Work Phone: [facility] 06-16-2024 13:05-0500 Body mass index (BMI) [Ratio] 57.43 kg/m2 Pulm Wstr Work Phone: [facility] 06-16-2024 13:05-0500 Body weight 142.43 kg Pulm Wstr Work Phone: [facility] 06-16-2024 13:05-0500 Heart rate 83 /min Pulm Wstr Work Phone: [facility] 06-16-2024 13:05-0500 Respiratory rate 14 /min Pulm Wstr Work Phone: [facility] 06-16-2024 13:05-0500 SaO2% (BldA) [Mass fraction] 98 % Pulm Wstr Work Phone: [facility] 04-28-2024 11:20-0500 Body mass index (BMI) [Ratio] 57.04 kg/m2 Caryn 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 Work Phone: [facility] 04-28-2024 11:20-0500 Body weight 146.06 kg Caryn 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 Work Phone: [facility] 04-28-2024 11:20-0500 Diastolic blood pressure 80 mm[Hg] Caryn 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 Work Phone: [facility] 04-28-2024 11:20-0500 Heart rate 88 /min Caryn 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 Work Phone: [facility] 04-28-2024 11:20-0500 Respiratory rate 16 /min Caryn 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 Work Phone: [facility] 04-28-2024 11:20-0500 SaO2% (BldA) [Mass fraction] 97 % Caryn 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 Work Phone: [facility] 04-28-2024 11:20-0500 Systolic blood pressure 128 mm[Hg] Caryn 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 Work Phone: [facility] 04-02-2024 13:33-0500 Body mass index (BMI) [Ratio] 57.39 kg/m2 Victoria Nguyen 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 Work Phone: [facility] 04-02-2024 13:33-0500 Body temperature 97.5 [degF] Victoria Praisler-Wood 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 Work Phone: [facility] 04-02-2024 13:33-0500 Body weight 146.97 kg Victoria Praisler-Wood 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 Work Phone: [facility] 04-02-2024 13:33-0500 Diastolic blood pressure 87 mm[Hg] Victoria Praisler-Wood 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 Work Phone: [facility] 04-02-2024 13:33-0500 Heart rate 93 /min Victoria Praisler-Wood 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 Work Phone: [facility] 04-02-2024 13:33-0500 Respiratory rate 16 /min Victoria Praisler-Wood 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 Work Phone: [facility] 04-02-2024 13:33-0500 Systolic blood pressure 146 mm[Hg] Victoria Praisler-Wood 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 Work Phone: [facility] 04-01-2024 15:33-0500 Body mass index (BMI) [Ratio] 57.52 kg/m2 Victoria Praisler-Wood 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 Work Phone: [facility] 04-01-2024 15:33-0500 Body temperature 98.4 [degF] Victoria Praisler-Wood 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 Work Phone: [facility] 04-01-2024 15:33-0500 Body weight 147.3 kg Victoria Praisler-Wood 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 Work Phone: [facility] 04-01-2024 15:33-0500 Diastolic blood pressure 86 mm[Hg] Victoria Praisler-Wood 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 Work Phone: [facility] 04-01-2024 15:33-0500 Heart rate 88 /min Victoria Praisler-Wood 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 Work Phone: [facility] 04-01-2024 15:33-0500 Respiratory rate 20 /min Victoria Praisler-Wood 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 Work Phone: [facility] 04-01-2024 15:33-0500 SaO2% (BldA) [Mass fraction] 97 % Victoria Nguyen APRN.TAX REVENUE OFFICER Work Phone: [facility] 04-01-2024 15:33-0500 Systolic blood pressure 128 mm[Hg] Victoria Nguyen APRN.TAX REVENUE OFFICER Work Phone: [facility] 03-31-2024 14:25-0500 Body mass index (BMI) [Ratio] 57.49 kg/m2 Janie Vinson APRN.TAX REVENUE OFFICER Work Phone: [facility] 03-31-2024 14:25-0500 Body temperature 97.59 [degF] Janie Vinson APRN.TAX REVENUE OFFICER Work Phone: [facility] 03-31-2024 14:25-0500 Body weight 147.2 kg Janie Vinson APRN.TAX REVENUE OFFICER Work Phone: [facility] 03-31-2024 14:25-0500 Diastolic blood pressure 80 mm[Hg] Janie Vinson APRN.TAX REVENUE OFFICER Work Phone: [facility] 03-31-2024 14:25-0500 Heart rate 79 /min Janie Vinson APRN.TAX REVENUE OFFICER Work Phone: [facility] 03-31-2024 14:25-0500 Respiratory rate 22 /min Janie Vinson APRN.TAX REVENUE OFFICER Work Phone: [facility] 03-31-2024 14:25-0500 SaO2% (BldA) [Mass fraction] 93 % Janie Vinson APRN.TAX REVENUE OFFICER Work Phone: [facility] 03-31-2024 14:25-0500 Systolic blood pressure 138 mm[Hg] Janie Vinson APRN.TAX REVENUE OFFICER Work Phone: [facility] 03-17-2024 08:12-0400 Body mass index (BMI) [Ratio] 57.22 kg/m2 Cayrn Lowery APRN.TAX REVENUE OFFICER Work Phone: [facility] 03-17-2024 08:12-0400 Body weight 146.51 kg Caryn 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 Work Phone: [facility] 03-17-2024 08:12-0400 Diastolic blood pressure 76 mm[Hg] Caryn 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 Work Phone: [facility] 03-17-2024 08:12-0400 Heart rate 95 /min Caryn 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 Work Phone: [facility] 03-17-2024 08:12-0400 Respiratory rate 16 /min Caryn 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 Work Phone: [facility] 03-17-2024 08:12-0400 SaO2% (BldA) [Mass fraction] 95 % Caryn 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 Work Phone: [facility] 03-17-2024 08:12-0400 Systolic blood pressure 130 mm[Hg] Caryn 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 Work Phone: [facility] 02-17-2024 13:39-0400 Body mass index (BMI) [Ratio] 57.39 kg/m2 Caryn 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 Work Phone: [facility] 02-17-2024 13:39-0400 Body weight 146.97 kg Caryn 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 Work Phone: [facility] 02-17-2024 13:39-0400 Diastolic blood pressure 80 mm[Hg] Caryn 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 Work Phone: [facility] 02-17-2024 13:39-0400 Heart rate 88 /min Caryn 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 Work Phone: [facility] 02-17-2024 13:39-0400 Respiratory rate 16 /min Caryn 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 Work Phone: [facility] 02-17-2024 13:39-0400 SaO2% (BldA) [Mass fraction] 97 % Caryn 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 Work Phone: [facility] 02-17-2024 13:39-0400 Systolic blood pressure 128 mm[Hg] Caryn 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 Work Phone: [facility] 02-02-2024 12:15-0400 Body mass index (BMI) [Ratio] 57.04 kg/m2 Caryn 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 Work Phone: [facility] 02-02-2024 12:15-0400 Body temperature 97.59 [degF] Caryn 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 Work Phone: [facility] 02-02-2024 12:15-0400 Body weight 146.06 kg Caryn 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 Work Phone: [facility] 02-02-2024 12:15-0400 Diastolic blood pressure 78 mm[Hg] Caryn 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 Work Phone: [facility] 02-02-2024 12:15-0400 Heart rate 74 /min Caryn 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 Work Phone: [facility] 02-02-2024 12:15-0400 Respiratory rate 24 /min Caryn 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 Work Phone: [facility] 02-02-2024 12:15-0400 SaO2% (BldA) [Mass fraction] 95 % Caryn 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 Work Phone: [facility] 02-02-2024 12:15-0400 Systolic blood pressure 126 mm[Hg] Caryn 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 Work Phone: [facility] 01-21-2024 10:58-0400 Body mass index (BMI) [Ratio] 57.1 kg/m2 Caryn 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 Work Phone: [facility] 01-21-2024 10:58-0400 Body temperature 97.9 [degF] Caryn 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 Work Phone: [facility] 01-21-2024 10:58-0400 Body weight 146.2 kg Caryn 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 Work Phone: [facility] 01-21-2024 10:58-0400 Diastolic blood pressure 84 mm[Hg] Caryn 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 Work Phone: [facility] 01-21-2024 10:58-0400 Heart rate 102 /min Caryn 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 Work Phone: [facility] 01-21-2024 10:58-0400 Respiratory rate 16 /min Caryn 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 Work Phone: [facility] 01-21-2024 10:58-0400 SaO2% (BldA) [Mass fraction] 92 % Caryn 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 Work Phone: [facility] 01-21-2024 10:58-0400 Systolic blood pressure 136 mm[Hg] Caryn 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 Work Phone: [facility] 01-13-2024 11:13-0400 Body mass index (BMI) [Ratio] 56.15 kg/m2 Caryn 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 Work Phone: [facility] 01-13-2024 11:13-0400 Body weight 143.79 kg Caryn 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 Work Phone: [facility] 01-13-2024 11:13-0400 Diastolic blood pressure 88 mm[Hg] Caryn 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 Work Phone: [facility] 01-13-2024 11:13-0400 Heart rate 92 /min Caryn 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 Work Phone: [facility] 01-13-2024 11:13-0400 Respiratory rate 16 /min Caryn 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 Work Phone: [facility] 01-13-2024 11:13-0400 SaO2% (BldA) [Mass fraction] 93 % Caryn 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 Work Phone: [facility] 01-13-2024 11:13-0400 Systolic blood pressure 142 mm[Hg] Caryn 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 Work Phone: [facility] 01-04-2024 19:01-0400 Diastolic Blood Pressure Non-Invasive 77 mm[Hg] CHELSIE MORALES MD [facility] 01-04-2024 19:01-0400 Heart rate 88 /min CHELSIE MORALES MD [facility] 01-04-2024 19:01-0400 Respiratory rate 20 /min CHELSIE MORALES MD [facility] 01-04-2024 19:01-0400 Systolic Blood Pressure Non-Invasive 132 mm[Hg] CHELSIE MORALES MD [facility] 01-04-2024 17:39-0400 Diastolic Blood Pressure Non-Invasive 89 mm[Hg] CHELSIE MORALES MD [facility] 01-04-2024 17:39-0400 Heart rate 88 /min CHELSIE MORALES MD [facility] 01-04-2024 17:39-0400 Systolic Blood Pressure Non-Invasive 153 mm[Hg] CHELSIE MORALES MD [facility] 01-04-2024 16:04-0400 Body temperature 97.34 [degF] CHELSIE MORALES MD [facility] 01-04-2024 16:04-0400 Body weight 143.7 kg CHELSIE MORALES MD [facility] 01-04-2024 16:04-0400 Diastolic Blood Pressure Non-Invasive 95 mm[Hg] CHELSIE MORALES MD [facility] 01-04-2024 16:04-0400 Heart rate 91 /min CHELSIE MORALES MD [facility] 01-04-2024 16:04-0400 Respiratory rate 20 /min CHELSIE MORALES MD [facility] 01-04-2024 16:04-0400 Systolic Blood Pressure Non-Invasive 152 mm[Hg] CHELSIE MORALES MD [facility] 01-03-2024 13:00-0400 Body mass index (BMI) [Ratio] 55.98 kg/m2 Caryn 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 Work Phone: [facility] 01-03-2024 13:00-0400 Body weight 143.34 kg 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 Work Phone: [facility] 01-03-2024 13:00-0400 Diastolic blood pressure 80 mm[Hg] 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 Work Phone: [facility] 01-03-2024 13:00-0400 Heart rate 80 /min 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 Work Phone: [facility] 01-03-2024 13:00-0400 Respiratory rate 16 /min 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 Work Phone: [facility] 01-03-2024 13:00-0400 SaO2% (BldA) [Mass fraction] 96 % 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 Work Phone: [facility] 01-03-2024 13:00-0400 Systolic blood pressure 132 mm[Hg] 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 Work Phone: [facility] 12-06-2023 14:58-0400 Body mass index (BMI) [Ratio] 56.04 kg/m2 Steve Ramirez 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 Work Phone: [facility] 12-06-2023 14:58-0400 Body temperature 97.81 [degF] Steve Ramirez 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 Work Phone: [facility] 12-06-2023 14:58-0400 Body weight 143.5 kg [facility] 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 Work Phone: [facility] 12-06-2023 14:58-0400 Diastolic blood pressure 90 mm[Hg] [facility] 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 Work Phone: [facility] 12-06-2023 14:58-0400 Heart rate 93 /min [facility] 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 Work Phone: [facility] 12-06-2023 14:58-0400 Respiratory rate 20 /min [facility] 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 Work Phone: [facility] 12-06-2023 14:58-0400 SaO2% (BldA) [Mass fraction] 96 % [facility] 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 Work Phone: [facility] 12-06-2023 14:58-0400 Systolic blood pressure 148 mm[Hg] [facility] 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 Work Phone: [facility] 12-03-2023 13:35-0400 Body mass index (BMI) [Ratio] 55.98 kg/m2 Caryn 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 Work Phone: [facility] 12-03-2023 13:35-0400 Body weight 143.34 kg Caryn 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 Work Phone: [facility] 12-03-2023 13:35-0400 Diastolic blood pressure 76 mm[Hg] Caryn 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 Work Phone: [facility] 12-03-2023 13:35-0400 Heart rate 92 /min Caryn 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 Work Phone: [facility] 12-03-2023 13:35-0400 Respiratory rate 16 /min Caryn 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 Work Phone: [facility] 12-03-2023 13:35-0400 SaO2% (BldA) [Mass fraction] 97 % Caryn 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 Work Phone: [facility] 12-03-2023 13:35-0400 Systolic blood pressure 128 mm[Hg] Caryn 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 Work Phone: [facility] 11-15-2023 13:15-0400 Body mass index (BMI) [Ratio] 55.52 kg/m2 Caryn 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 Work Phone: [facility] 11-15-2023 13:15-0400 Body weight 142.16 kg Caryn 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 Work Phone: [facility] 11-15-2023 13:15-0400 Diastolic blood pressure 94 mm[Hg] Caryn 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 Work Phone: [facility] 11-15-2023 13:15-0400 Heart rate 98 /min Caryn 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 Work Phone: [facility] 11-15-2023 13:15-0400 SaO2% (BldA) [Mass fraction] 95 % Caryn 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 Work Phone: [facility] 11-15-2023 13:15-0400 Systolic blood pressure 142 mm[Hg] Caryn 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 Work Phone: [facility] 10-13-2023 11:00-0400 Body height 160 cm Caryn 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 Work Phone: [facility] 10-13-2023 11:00-0400 Body mass index (BMI) [Ratio] 55.8 kg/m2 Caryn 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 Work Phone: [facility] 10-13-2023 11:00-0400 Body weight 142.88 kg Caryn 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 Work Phone: [facility] 10-13-2023 11:00-0400 Diastolic blood pressure 72 mm[Hg] Caryn 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 Work Phone: [facility] 10-13-2023 11:00-0400 Heart rate 101 /min Caryn 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 Work Phone: [facility] 10-13-2023 11:00-0400 Respiratory rate 16 /min Caryn 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 Work Phone: [facility] 10-13-2023 11:00-0400 SaO2% (BldA) [Mass fraction] 95 % Caryn 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 Work Phone: [facility] 10-13-2023 11:00-0400 Systolic blood pressure 140 mm[Hg] Caryn 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 Work Phone: [facility] 07-15-2023 13:45-0500 Body weight 144.7 kg Caryn 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 Work Phone: [facility] 07-15-2023 13:45-0500 Diastolic blood pressure 70 mm[Hg] Caryn 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 Work Phone: [facility] 07-15-2023 13:45-0500 Heart rate 84 /min Caryn 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 Work Phone: [facility] 07-15-2023 13:45-0500 Respiratory rate 16 /min Caryn 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 Work Phone: [facility] 07-15-2023 13:45-0500 SaO2% (BldA) [Mass fraction] 98 % Caryn 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 Work Phone: [facility] 07-15-2023 13:45-0500 Systolic blood pressure 118 mm[Hg] Caryn 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 Work Phone: [facility] 07-14-2023 18:36-0500 Body height 162.6 cm KANWAL GUEVARA MD [facility] 07-14-2023 18:36-0500 Body temperature 97.88 [degF] KANWAL GUEVARA MD [facility] 07-14-2023 18:36-0500 Body weight 145.5 kg KANWAL GUEVARA MD [facility] 07-14-2023 18:36-0500 Diastolic Blood Pressure Non-Invasive 98 mm[Hg] KANWAL GUEVARA MD [facility] 07-14-2023 18:36-0500 Heart rate 105 /min KANWAL GUEVARA MD [facility] 07-14-2023 18:36-0500 Respiratory rate 20 /min KANWAL GUEVARA MD [facility] 07-14-2023 18:36-0500 Systolic Blood Pressure Non-Invasive 156 mm[Hg] KANWAL GUEVARA MD [facility] 07-14-2023 08:35-0500 Body temperature 98.29 [degF] Steve Ramirez 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 Work Phone: [facility] 07-14-2023 08:35-0500 Body weight 145.88 kg Steve Ramirez 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 Work Phone: [facility] 07-14-2023 08:35-0500 Diastolic blood pressure 74 mm[Hg] Steve Raimrez 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 Work Phone: [facility] 07-14-2023 08:35-0500 Heart rate 97 /min Steve Ramirez 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 Work Phone: [facility] 07-14-2023 08:35-0500 Respiratory rate 22 /min Steve Ramirez 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 Work Phone: [facility] 07-14-2023 08:35-0500 SaO2% (BldA) [Mass fraction] 94 % Steve Ramirez 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 Work Phone: [facility] 07-14-2023 08:35-0500 Systolic blood pressure 118 mm[Hg] Steve Ramirez 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 Work Phone: [facility] 07-09-2023 15:10-0500 Body temperature 98.49 [degF] Niranjan Pablogg PA Work Phone: [facility] 07-09-2023 15:10-0500 Body weight 143.79 kg Krislyn Aberegg PA Work Phone: [facility] 07-09-2023 15:10-0500 Diastolic blood pressure 90 mm[Hg] Krislyn Aberegg PA Work Phone: [facility] 07-09-2023 15:10-0500 Heart rate 90 /min Krislyn Aberegg PA Work Phone: [facility] 07-09-2023 15:10-0500 Respiratory rate 20 /min Krislyn Aberegg PA Work Phone: [facility] 07-09-2023 15:10-0500 SaO2% (BldA) [Mass fraction] 98 % Krislyn Aberegg PA Work Phone: [facility] 07-09-2023 15:10-0500 Systolic blood pressure 161 mm[Hg] Krislyn Aberegg PA Work Phone: [facility] 06-30-2023 15:50-0500 Body temperature 97.9 [degF] Shazia Lee 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 Work Phone: [facility] 06-30-2023 15:50-0500 Body weight 144.88 kg Shazia Lee 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 Work Phone: [facility] 06-30-2023 15:50-0500 Diastolic blood pressure 78 mm[Hg] Shazia Lee 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 Work Phone: [facility] 06-30-2023 15:50-0500 Heart rate 85 /min Shazia Lee 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 Work Phone: [facility] 06-30-2023 15:50-0500 Respiratory rate 18 /min Shazia Lee 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 Work Phone: [facility] 06-30-2023 15:50-0500 SaO2% (BldA) [Mass fraction] 97 % Shazia Lee 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 Work Phone: [facility] 06-30-2023 15:50-0500 Systolic blood pressure 128 mm[Hg] Shazia Lee 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 Work Phone: [facility] 05-13-2023 06:03-0500 Body height 160.[address] Babar Phillip Work Phone: [facility] 05-13-2023 06:03-0500 Body mass index (BMI) [Ratio] 55.4 kg/m2 Dr. Babar Phillip Work Phone: [facility] 05-13-2023 06:03-0500 Body temperature 97.7 [degF] Dr. Babar Phillip Work Phone: [facility] 05-13-2023 06:03-0500 Body weight 141.[address] Babar Phillip Work Phone: [facility] 05-13-2023 06:03-0500 Diastolic blood pressure 93 mm[Hg] Dr. Babar Phillip Work Phone: [facility] 05-13-2023 06:03-0500 Heart rate 92 /min Dr. Babar Phillip Work Phone: [facility] 05-13-2023 06:03-0500 Respiratory rate 18 /min Dr. Babar Phillip Work Phone: [facility] 05-13-2023 06:03-0500 SaO2% (BldA) [Mass fraction] 93 % Dr. Babar Phillip Work Phone: [facility] 05-13-2023 06:03-0500 Systolic blood pressure 151 mm[Hg] Dr. Babar Phillip Work Phone: [facility] 05-03-2023 11:15-0500 Body temperature 98.3 [degF] [facility] 05-03-2023 11:15-0500 Diastolic blood pressure 70 mm[Hg] [facility] 05-03-2023 11:15-0500 Heart rate 87 /min [facility] 05-03-2023 11:15-0500 Respiratory rate 16 /min [facility] 05-03-2023 11:15-0500 SaO2% (BldA) [Mass fraction] 98 % [facility] 05-03-2023 11:15-0500 Systolic blood pressure 128 mm[Hg] [facility] 05-03-2023 09:27-0500 Body height 160.[address] [facility] 05-03-2023 09:27-0500 Body mass index (BMI) [Ratio] 56.6 kg/m2 [facility] 05-03-2023 09:27-0500 Body weight [address] [facility] 03-03-2023 12:20-0400 Body weight 141.98 kg Caryn 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 Work Phone: [facility] 03-03-2023 12:20-0400 Diastolic blood pressure 78 mm[Hg] Caryn 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 Work Phone: [facility] 03-03-2023 12:20-0400 Heart rate 74 /min Caryn 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 Work Phone: [facility] 03-03-2023 12:20-0400 Respiratory rate 16 /min Caryn 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 Work Phone: [facility] 03-03-2023 12:20-0400 SaO2% (BldA) [Mass fraction] 98 % Caryn 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 Work Phone: [facility] 03-03-2023 12:20-0400 Systolic blood pressure 128 mm[Hg] Caryn 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 Work Phone: [facility] 02-15-2023 10:18-0400 Body temperature 97.3 [degF] Dr. Babar Phillip Work Phone: [facility] 02-15-2023 10:18-0400 Diastolic blood pressure 81 mm[Hg] Dr. Babar Phillip Work Phone: [facility] 02-15-2023 10:18-0400 Heart rate 84 /min Dr. Babar Phillip Work Phone: [facility] 02-15-2023 10:18-0400 Respiratory rate 16 /min Dr. Babar Phillip Work Phone: [facility] 02-15-2023 10:18-0400 SaO2% (BldA) [Mass fraction] 98 % Dr. Babar Phillip Work Phone: [facility] 02-15-2023 10:18-0400 Systolic blood pressure 138 mm[Hg] Dr. Babar Phillip Work Phone: 2(154)179-219055 [place] [address] 02-15-2023 08:34-0400 Body height 160.[address] Babar Phillip Work Phone: 1(749)879-172655 [place] [address] 02-15-2023 08:34-0400 Body mass index (BMI) [Ratio] 54.9 kg/m2 Dr. Babar Phillip Work Phone: 4(465)462-864570 [place] [address] 02-15-2023 08:34-0400 Body weight 140.[address] Babar Phillip Work Phone: [facility] 01-11-2023 23:15-0400 Blood Pressure Cuff Size DR DANIEL NATION DO [facility] 01-11-2023 23:15-[address] DANIEL NATION DO [facility] 01-11-2023 23:15-[address] DANIEL NATION DO [facility] 01-11-2023 23:15-0400 Body height 162.[address] DANIEL NATION DO [facility] 01-11-2023 23:15-0400 Body temperature 97.16 [degF] DR DANIEL NATION DO [facility] 01-11-2023 23:15-0400 Body weight 141.[address] DANIEL NATION DO [facility] 01-11-2023 23:15-0400 Diastolic Blood Pressure Non-Invasive [address] DANIEL NATION DO [facility] 01-11-2023 23:15-0400 Heart rate 90 /min DR DANIEL NATION DO [facility] 01-11-2023 23:15-0400 Reason For Taking VItal Signs DR DANIEL NATION DO [facility] 01-11-2023 23:15-0400 Respiratory rate 20 /min DR DANIEL NATION DO [facility] 01-11-2023 23:15-0400 Systolic Blood Pressure Non-Invasive [address] DANIEL NATION DO [facility] 01-04-2023 11:55-0400 Body temperature 98.5 [degF] Dr. Babar Phillip Work Phone: [facility] 01-04-2023 11:55-0400 Diastolic blood pressure 52 mm[Hg] Dr. Babar Phillip Work Phone: [facility] 01-04-2023 11:55-0400 Heart rate 75 /min Dr. Babar Phillip Work Phone: [facility] 01-04-2023 11:55-0400 Respiratory rate 16 /min Dr. Babar Phillip Work Phone: [facility] 01-04-2023 11:55-0400 SaO2% (BldA) [Mass fraction] 97 % Dr. Babar Phillip Work Phone: [facility] 01-04-2023 11:55-0400 Systolic blood pressure 120 mm[Hg] Dr. Babar Phillip Work Phone: [facility] 01-04-2023 10:52-0400 Body height 162.[address] Babar Phillip Work Phone: [facility] 01-04-2023 10:52-0400 Body mass index (BMI) [Ratio] 53.3 kg/m2 Dr. Babar Phillip Work Phone: [facility] 01-04-2023 10:52-0400 Body weight [address] Babar Phillip Work Phone: [facility] 12-31-2022 11:05-0400 Body weight 139.71 kg Caryn 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 Work Phone: [facility] 12-31-2022 11:05-0400 Diastolic blood pressure 82 mm[Hg] Caryn 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 Work Phone: [facility] 12-31-2022 11:05-0400 Heart rate 76 /min Caryn 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 Work Phone: [facility] 12-31-2022 11:05-0400 Respiratory rate 16 /min Caryn 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 Work Phone: [facility] 12-31-2022 11:05-0400 SaO2% (BldA) [Mass fraction] 96 % Caryn 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 Work Phone: [facility] 12-31-2022 11:05-0400 Systolic blood pressure 136 mm[Hg] Caryn 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 Work Phone: [facility] 12-21-2022 13:02-0400 Body height [address] [facility] 12-21-2022 13:02-0400 Body weight 141.[address] [facility] 11-23-2022 10:50-0400 Body temperature 97.5 [degF] Caryn 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 Work Phone: [facility] 11-23-2022 10:50-0400 Body weight 140.62 kg Caryn 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 Work Phone: [facility] 11-23-2022 10:50-0400 Diastolic blood pressure 72 mm[Hg] Caryn 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 Work Phone: [facility] 11-23-2022 10:50-0400 Heart rate 88 /min Caryn 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 Work Phone: [facility] 11-23-2022 10:50-0400 Respiratory rate 16 /min Caryn 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 Work Phone: [facility] 11-23-2022 10:50-0400 SaO2% (BldA) [Mass fraction] 98 % Caryn 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 Work Phone: [facility] 11-23-2022 10:50-0400 Systolic blood pressure 122 mm[Hg] Caryn 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 Work Phone: [facility] 11-10-2022 05:55-0400 Body mass index (BMI) [Ratio] 54.7 kg/m2 Dr. Babar Phillip Work Phone: [facility] 11-10-2022 05:55-0400 Body temperature 97.4 [degF] Dr. Babar Phillip Work Phone: [facility] 11-10-2022 05:55-0400 Body weight 140.[address] Babar Phillip Work Phone: [facility] 11-10-2022 05:55-0400 Diastolic blood pressure 82 mm[Hg] Dr. Babar Phillip Work Phone: [facility] 11-10-2022 05:55-0400 Heart rate 80 /min Dr. Babar Phillip Work Phone: [facility] 11-10-2022 05:55-0400 Respiratory rate 18 /min Dr. Babar Phillip Work Phone: [facility] 11-10-2022 05:55-0400 SaO2% (BldA) [Mass fraction] 94 % Dr. Babar Phillip Work Phone: [facility] 11-10-2022 05:55-0400 Systolic blood pressure 137 mm[Hg] Dr. Babar Phillip Work Phone: [facility] 08-24-2022 11:00-0400 Body weight 136.53 kg Caryn 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 Work Phone: [facility] 08-24-2022 11:00-0400 Diastolic blood pressure 72 mm[Hg] Caryn 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 Work Phone: [facility] 08-24-2022 11:00-0400 Heart rate 80 /min Caryn 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 Work Phone: [facility] 08-24-2022 11:00-0400 Respiratory rate 16 /min Caryn 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 Work Phone: [facility] 08-24-2022 11:00-0400 Systolic blood pressure 128 mm[Hg] Caryn 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 Work Phone: [facility] 08-03-2022 12:01-0400 Body temperature 97.8 [degF] Dr. Babar Phillip Work Phone: [facility] 08-03-2022 12:01-0400 Diastolic blood pressure 82 mm[Hg] Dr. Babar Phillip Work Phone: [facility] 08-03-2022 12:01-0400 Heart rate 81 /min Dr. Babar Phillip Work Phone: [facility] 08-03-2022 12:01-0400 Respiratory rate 18 /min Dr. Babar Phillip Work Phone: [facility] 08-03-2022 12:01-0400 SaO2% (BldA) [Mass fraction] 100 % Dr. Babar Phillip Work Phone: [facility] 08-03-2022 12:01-0400 Systolic blood pressure 110 mm[Hg] Dr. Babar Phillip Work Phone: 7(211)[phone] [place] [address] 08-03-2022 11:19-0400 Body height 160.[address] Babar Phillip Work Phone: [facility] 08-03-2022 11:19-0400 Body mass index (BMI) [Ratio] 54.3 kg/m2 Dr. Babar Phillip Work Phone: [facility] [facility] 08-03-2022 11:19-0400 Body weight [address] Babar Phillip Work Phone: [facility] 07-17-2022 14:10-0500 Body weight 136.53 kg Caryn 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 Work Phone: [facility] 07-17-2022 14:10-0500 Diastolic blood pressure 80 mm[Hg] Caryn 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 Work Phone: [facility] 07-17-2022 14:10-0500 Heart rate 80 /min Caryn 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 Work Phone: [facility] 07-17-2022 14:10-0500 Respiratory rate 16 /min Caryn 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 Work Phone: [facility] 07-17-2022 14:10-0500 Systolic blood pressure 128 mm[Hg] Caryn 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 Work Phone: [facility] 06-17-2022 14:05-0500 Body height 160 cm Jared Xin PA-C Work Phone: [facility] 06-17-2022 14:05-0500 Body weight 138.35 kg Jared Xin PA-C Work Phone: [facility] 06-03-2022 15:32-0500 Body height 160 cm Kelli Abdirashid PA-C Work Phone: [facility] 06-03-2022 15:32-0500 Body weight 138.35 kg Kelli Abdirashid PA-C Work Phone: [facility] 06-03-2022 15:32-0500 Diastolic blood pressure 74 mm[Hg] Kelli Abdirashid PA-C Work Phone: [facility] 06-03-2022 15:32-0500 Heart rate 84 /min Kelli Abdirashid PA-C Work Phone: [facility] 06-03-2022 15:32-0500 Systolic blood pressure 124 mm[Hg] Kelli Abdirashid PA-C Work Phone: [facility] 05-25-2022 10:43-0500 Body weight 137.89 kg Caryn 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 Work Phone: [facility] 05-25-2022 10:43-0500 Diastolic blood pressure 78 mm[Hg] Caryn 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 Work Phone: [facility] 05-25-2022 10:43-0500 Heart rate 88 /min Caryn 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 Work Phone: [facility] 05-25-2022 10:43-0500 Respiratory rate 16 /min Caryn 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 Work Phone: [facility] 05-25-2022 10:43-0500 Systolic blood pressure 122 mm[Hg] Caryn 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 Work Phone: [facility] 05-01-2022 12:40-0500 Body mass index (BMI) [Ratio] 54.8 kg/m2 Dr. Babar Phillip Work Phone: [facility] 05-01-2022 12:40-0500 Body temperature 98.6 [degF] Dr. Babar Phillip Work Phone: [facility] 05-01-2022 12:40-0500 Body weight 136.[address] Babar Phillip Work Phone: [facility] 05-01-2022 12:40-0500 Diastolic blood pressure 83 mm[Hg] Dr. Babar Phillip Work Phone: [facility] 05-01-2022 12:40-0500 Heart rate 98 /min Dr. Babar Phillip Work Phone: [facility] 05-01-2022 12:40-0500 Respiratory rate 20 /min Dr. Babar Phillip Work Phone: [facility] 05-01-2022 12:40-0500 SaO2% (BldA) [Mass fraction] 95 % Dr. Babar Phillip Work Phone: [facility] 05-01-2022 12:40-0500 Systolic blood pressure 145 mm[Hg] Dr. Babar Phillip Work Phone: [facility] 04-15-2022 14:35-0500 Body temperature 97.11 [degF] Caryn 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 Work Phone: [facility] 04-15-2022 14:35-0500 Body weight 136.08 kg Caryn 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 Work Phone: [facility] 04-15-2022 14:35-0500 Diastolic blood pressure 78 mm[Hg] Caryn 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 Work Phone: [facility] 04-15-2022 14:35-0500 Heart rate 84 /min Caryn 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 Work Phone: [facility] 04-15-2022 14:35-0500 Respiratory rate 16 /min Caryn 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 Work Phone: [facility] 04-15-2022 14:35-0500 SaO2% (BldA) [Mass fraction] 95 % Caryn 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 Work Phone: [facility] 04-15-2022 14:35-0500 Systolic blood pressure 126 mm[Hg] Caryn 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 Work Phone: [facility] 04-08-2022 14:29-0500 Body weight 136.08 kg Caryn 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 Work Phone: [facility] 04-08-2022 14:29-0500 Diastolic blood pressure 82 mm[Hg] Caryn 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 Work Phone: [facility] 04-08-2022 14:29-0500 Heart rate 80 /min Caryn 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 Work Phone: [facility] 04-08-2022 14:29-0500 Respiratory rate 16 /min Caryn 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 Work Phone: [facility] 04-08-2022 14:29-0500 Systolic blood pressure 132 mm[Hg] Caryn 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 Work Phone: [facility] 03-25-2022 17:44-0500 Body weight 137.44 kg Caryn 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 Work Phone: [facility] 03-25-2022 17:44-0500 Diastolic blood pressure 78 mm[Hg] Caryn 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 Work Phone: [facility] 03-25-2022 17:44-0500 Heart rate 80 /min Caryn 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 Work Phone: [facility] 03-25-2022 17:44-0500 Respiratory rate 16 /min Caryn 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 Work Phone: [facility] 03-25-2022 17:44-0500 Systolic blood pressure 128 mm[Hg] Caryn 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 Work Phone: [facility] 02-20-2022 13:19-0400 Diastolic blood pressure 82 mm[Hg] Caryn 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 Work Phone: [facility] 02-20-2022 13:19-0400 Heart rate 84 /min Caryn 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 Work Phone: [facility] 02-20-2022 13:19-0400 Respiratory rate 16 /min Caryn 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 Work Phone: [facility] 02-20-2022 13:19-0400 Systolic blood pressure 134 mm[Hg] Caryn 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 Work Phone: [facility] 12-22-2021 15:40-0400 Body temperature 97.7 [degF] Anu 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 Work Phone: [facility] 12-22-2021 15:40-0400 Body weight 138.8 kg Anu 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 Work Phone: [facility] 12-22-2021 15:40-0400 Diastolic blood pressure 84 mm[Hg] Anu 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 Work Phone: [facility] 12-22-2021 15:40-0400 Heart rate 82 /min Anu 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 Work Phone: [facility] 12-22-2021 15:40-0400 Respiratory rate 18 /min Anu 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 Work Phone: [facility] 12-22-2021 15:40-0400 SaO2% (BldA) [Mass fraction] 98 % Anu 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 Work Phone: [facility] 12-22-2021 15:40-0400 Systolic blood pressure 124 mm[Hg] Anu 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 Work Phone: [facility] 12-19-2021 15:46-0400 Body temperature 98.01 [degF] Sheri Jono OVERAGE SHORTAGE AND DAMAGE CLERK.TAX REVENUE OFFICER Work Phone: [facility] 12-19-2021 15:46-0400 Body weight 138.98 kg Sheri Jono OVERAGE SHORTAGE AND DAMAGE CLERK.TAX REVENUE OFFICER Work Phone: [facility] 12-19-2021 15:46-0400 Diastolic blood pressure 78 mm[Hg] Sheri Jono OVERAGE SHORTAGE AND DAMAGE CLERK.TAX REVENUE OFFICER Work Phone: [facility] 12-19-2021 15:46-0400 Heart rate 113 /min Sheri Jono OVERAGE SHORTAGE AND DAMAGE CLERK.TAX REVENUE OFFICER Work Phone: [facility] 12-19-2021 15:46-0400 Respiratory rate 18 /min Sheri Jono OVERAGE SHORTAGE AND DAMAGE CLERK.TAX REVENUE OFFICER Work Phone: [facility] 12-19-2021 15:46-0400 SaO2% (BldA) [Mass fraction] 97 % Sheri Jono OVERAGE SHORTAGE AND DAMAGE CLERK.TAX REVENUE OFFICER Work Phone: [facility] 12-19-2021 15:46-0400 Systolic blood pressure 126 mm[Hg] Sheri De La Cruz OVERAGE SHORTAGE AND DAMAGE CLERK.TAX REVENUE OFFICER Work Phone: [facility] 10-20-2021 13:31-0400 Body weight 140.16 kg Caryn 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 Work Phone: [facility] 10-20-2021 13:31-0400 Diastolic blood pressure 72 mm[Hg] Caryn 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 Work Phone: [facility] 10-20-2021 13:31-0400 Heart rate 80 /min Caryn 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 Work Phone: [facility] 10-20-2021 13:31-0400 Respiratory rate 16 /min Caryn 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 Work Phone: [facility] 10-20-2021 13:31-0400 Systolic blood pressure 128 mm[Hg] Caryn 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 Work Phone: [facility] Encounters Encounter Date Encounter Type Care Provider Facility Start: 12-26-2024 ambulatory [facility] Facility:[facility] Start: 12-25-2024 End: 12-25-2024 Office outpatient visit 25 minutes OVERAGE SHORTAGE AND DAMAGE CLERK.TAX REVENUE OFFICER Work Phone: [facility] [place] Comment on above: Abscess (Primary Dx) ; Wound pain Start: 12-25-2024 End: 12-25-2024 [facility] Facility:[facility] Start: 12-24-2024 End: 12-25-2024 Emergency department patient visit Dr. Babar Phillip MD Work Phone: -Emergency Department Work Phone: Start: 12-24-2024 End: 12-24-2024 Patient encounter procedure Yolanda Wyatt OVERAGE SHORTAGE AND DAMAGE CLERK.TAX REVENUE OFFICER Work Phone: [facility] Comment on above: Left breast abscess (Primary Dx); Cellulitis of skin Start: 12-24-2024 End: 12-24-2024 ambulatory YOLANDA TANAJACINDA Facility:[facility] Start: 12-23-2024 End: 12-23-2024 Emergency department patient visit JESÚS HERRERA DO [facility] Start: 12-22-2024 End: 12-22-2024 ambulatory [facility] Facility:[facility] Start: 12-21-2024 End: 12-21-2024 ambulatory [facility] Facility:[facility] Start: 11-21-2024 End: 11-22-2024 Refill Caryn 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 Work Phone: [facility] Comment on above: Refill Request Start: 11-20-2024 End: 11-20-2024 Office outpatient visit 25 minutes Caryn 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 Work Phone: [facility] [place] Comment on above: Rash (Primary Dx); Skin infection Start: 11-20-2024 End: 11-20-2024 [facility] Facility:[facility] Start: 10-31-2024 End: 12-01-2024 ambulatory Babar Phillip MD Work Phone: [facility] Start: 10-26-2024 End: 10-26-2024 Refill Babar Phillip MD Work Phone: [facility] Comment on above: Refill Request Start: 10-20-2024 End: 10-20-2024 Office outpatient visit 25 minutes Caryn 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 Work Phone: [facility] Comment on above: Chest pain, unspecif ied type (Primary Dx); Mild intermittent asthma with acute exacerbation (HCC); Dyspnea, unspecified type; Wheezing; Other hyperlipidemia; Tobacco use; Fatigue, unspecified type Start: 10-20-2024 End: 10-20-2024 [facility] Facility:[facility] Start: 10-17-2024 End: 10-17-2024 Office outpatient visit 40 minutes Charis M Galina OVERAGE SHORTAGE AND DAMAGE CLERK.TAX REVENUE OFFICER Work Phone: Pulmonary Medicine Comment on above: Asthma, moderate per sistent, poorly-controlled (HCC) (Primary Dx); Multiple allergies; Productive cough; Cigarette smoker; Morbid obesity (HCC); Chronic hypoxemic respiratory failure (HCC); Lung nodule Start: 10-17-2024 End: 10-17-2024 ambulatory [facility] Facility:[facility] Start: 10-14-2024 End: 10-15-2024 Emergency department patient visit DAVID NGUYEN MD [facility] Start: 10-11-2024 End: 10-13-2024 Follow-up encounter Caryn Lowery APRN.TAX REVENUE OFFICER Work Phone: [facility] Start: 10-11-2024 End: 10-11-2024 Subsequent hospital visit by physician Xr [facility] [place] Work Phone: Radiology Comment on above: Chest pain, unspecif ied type [R07.9] Start: 10-11-2024 End: 10-11-2024 Office outpatient visit 25 minutes Caryn Lowery APRN.TAX REVENUE OFFICER Work Phone: [facility] [place] Comment on above: Chest pain, unspecif ied type (Primary Dx); Dyspnea, unspecified type; Wheezing; Subacute cough; Acute pain of both shoulders; History of pulmonary aspergillosis; Tobacco dependence due to cigarettes; Gastroesophageal reflux disease without esophagitis Start: 10-11-2024 End: 10-11-2024 ambulatory Caryn Lowery APRN.TAX REVENUE OFFICER Work Phone: [facility] [place] Comment on above: Allergy Start: 10-10-2024 End: 10-13-2024 ambulatory Babar Phillip MD Work Phone: Internal [facility] Start: 08-02-2024 End: 10-02-2024 Follow-up encounter Caryn Lowery APRN.TAX REVENUE OFFICER Work Phone: [facility] Start: 07-31-2024 End: 07-31-2024 ambulatory [facility] Facility:[facility] Start: 07-27-2024 End: 07-27-2024 ambulatory [facility] Facility:[facility] Start: 07-27-2024 End: 07-27-2024 Patient encounter procedure Caryn Lowery APRN.TAX REVENUE OFFICER Work Phone: [facility] [place] Comment on above: Controlled type 2 di abetes mellitus without complication, without long-term current use of insulin (HCC) (Primary Dx); Hypothyroidism, unspecified type Start: 07-13-2024 End: 07-13-2024 Subsequent hospital visit by physician Марина [facility] [place] Work Phone: Radiology Comment on above: Acute cough [R05.1] Start: 07-13-2024 End: 07-13-2024 ambulatory [facility] Facility:[facility] Start: 07-13-2024 End: 07-13-2024 Patient encounter procedure Janie Vinson APRN.TAX REVENUE OFFICER Work Phone: [facility] Comment on above: URI, acute (Primary Dx); Acute cough Start: 06-30-2024 End: 06-30-2024 [facility] Facility:[facility] Start: 06-30-2024 End: 06-30-2024 Patient encounter procedure Caryn Lowery APRN.TAX REVENUE OFFICER Work Phone: [facility] [place] Comment on above: Controlled type 2 di abetes mellitus without complication, without long-term current use of insulin (HCC) (Primary Dx); Morbid obesity with BMI of 50.0-59.9, adult (HCC) Start: 06-19-2024 End: 06-19-2024 Telephone encounter Elle Boone MD Work Phone: Pulmonary Medicine Start: 06-16-2024 End: 06-16-2024 ambulatory Pulm Lab [facility] Work Phone: [facility] Comment on above: Spirometry Start: 06-16-2024 End: 06-16-2024 Patient encounter procedure [facility] Work Phone: PULM LAB [facility] Comment on above: Mild persistent asth ma without complication (Primary Dx); Morbid obesity (HCC); Chronic hypoxemic respiratory failure (HCC); Lung nodule; Cigarette smoker Start: 05-16-2024 End: 05-19-2024 Refill Babar Phillip MD Work Phone: [facility] [place] Comment on above: Refill Request Start: 04-28-2024 End: 04-28-2024 [facility] Facility:[facility] Start: 04-28-2024 End: 04-28-2024 Patient encounter procedure Caryn Lowery APRN.TAX REVENUE OFFICER Work Phone: [facility] [place] Comment on above: 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[facility]) (Primary Dx); Mild intermittent asthma with acute exacerbation; Controlled type 2 diabetes mellitus without complication, without long-term current use of insulin ([facility]); Gastroesophageal reflux disease without esophagitis; Morbid obesity with BMI of 50.0-59.9, adult ([facility]); Encounter for immunization; Essential hypertension; Other hyperlipidemia Start: 04-12-2024 End: 04-12-2024 Refill Babar Phillip MD Work Phone: [facility] [place] Comment on above: Refill Request Start: 04-05-2024 End: 04-05-2024 Telephone encounter Shazia Lee APRN.TAX REVENUE OFFICER Work Phone: [facility] Comment on above: Results Start: 04-02-2024 End: 04-02-2024 [facility] Facility:[facility] Start: 04-02-2024 End: 04-02-2024 Patient encounter procedure Victoria Nguyen APRN.TAX REVENUE OFFICER Work Phone: [facility] Comment on above: Abscess packing haresh brennon (Primary Dx) Start: 04-01-2024 End: 04-01-2024 [facility] Facility:[facility] Start: 04-01-2024 End: 04-01-2024 Patient encounter procedure Victoria Nguyen APRN.TAX REVENUE OFFICER Work Phone: [facility] Comment on above: Boil (Primary Dx) Start: 03-31-2024 End: 03-31-2024 [facility] Facility:[facility] Start: 03-31-2024 End: 03-31-2024 Patient encounter procedure Janie Vinson APRN.TAX REVENUE OFFICER Work Phone: [facility] Comment on above: Skin infection (Prim danielle Dx) Start: 03-17-2024 End: 03-17-2024 [facility] Facility:[facility] Start: 03-17-2024 End: 03-17-2024 Patient encounter procedure Caryn Lowery APRN.CNP Work Phone: [facility] [place] Comment on above: 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); EAMON (obstructive sleep apnea); Uncontrolled asthma Refill Request Start: 03-08-2024 ambulatory Yoseph Peña [facility] ty:[facility] Start: 03-03-2024 End: 03-03-2024 [facility] Facility:[facility] Start: 02-29-2024 End: 03-01-2024 Telephone encounter Babar Phillip MD Work Phone: [facility] [place] Comment on above: Faxed to [facility] Start: 02-29-2024 End: 02-29-2024 [facility] Facility:[facility] Start: 02-29-2024 End: 02-29-2024 Subsequent hospital visit by physician [facility] ([facility]) Work Phone: Cat Scan Comment on above: Shortness of breath [R06.02] Start: 02-28-2024 End: 02-28-2024 Telephone encounter Babar Phillip MD Work Phone: [facility] [place] Comment on above: Results Start: 02-25-2024 End: 02-25-2024 [facility] Facility:[facility] Start: 02-25-2024 End: 02-25-2024 Telephone encounter Babar Phillip MD Work Phone: [facility] [place] Comment on above: Faxed to [facility] Refill Request Start: 02-25-2024 End: 02-25-2024 ambulatory [facility] Facility:[facility] Start: 02-25-2024 End: 02-25-2024 ambulatory [facility] Facility:[facility] Start: 02-21-2024 End: 02-21-2024 [facility] Facility:[facility] Start: 02-21-2024 End: 02-21-2024 Patient encounter procedure Duran Blunt MD Work Phone: Orthopaedics Comment on above: 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); Ulnar neuropathy at elbow of right upper extremity Start: 02-17-2024 End: 02-17-2024 [facility] Facility:[facility] Start: 02-17-2024 End: 02-17-2024 Patient encounter procedure Caryn Lowery APRN.TAX REVENUE OFFICER Work Phone: [facility] [place] Comment on above: Shortness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 Phone: Start: 02-20-2022 INFLUENZA VACCINE QUADRIVALENT 6 MO - 64 YRS IM Caryn Lowery OVERAGE SHORTAGE AND DAMAGE CLERK.TAX REVENUE OFFICER Work Phone: Start: 02-09-2022 Radex spine lumbosac ral 2/3 views [facility] Provider Start: 04-24-2021 Radiologic exam ches t 2 views Babar Phillip MD Work Phone: Start: 03-12-2021 Radiologic exam ches t 2 views Lani Mendez PA-C Work Phone: Start: 01-24-2021 Radiologic exam ches t 2 views Steve Mullins MD Work Phone: Start: 11-12-2020 Radiologic exam ches t 2 views Anu Prince OVERAGE SHORTAGE AND DAMAGE CLERK.TAX REVENUE OFFICER Work Phone: Start: 11-11-2020 Adult depression scr eening assessment Duran Blunt MD Work Phone: Start: 03-02-2017 Colonoscopy Duran greenwood MD Work Phone: Ankle region structu re (body structure) CARYN OLDER OVERAGE SHORTAGE AND DAMAGE CLERK-TAX REVENUE OFFICER Comment on above: lwft - orif Appendectomy CARYN LOWERY OVERAGE SHORTAGE AND DAMAGE CLERK- TAX REVENUE OFFICER Carpal tunnel syndro me (disorder) CARYN LOWERY OVERAGE SHORTAGE AND DAMAGE CLERK-TAX REVENUE OFFICER Comment on above: pato Tonsillectomy CARYN LOWERY OVERAGE SHORTAGE AND DAMAGE CLERK -TAX REVENUE OFFICER Plan of Treatment Date Care Activity Detail Author Start: 12-25-2025 Annual PCP Team Chronic Disease Visit Annual PCP Team Chronic Disease Visit [facility] Start: 12-22-2025 Annual PCP Team Chronic Disease Visit Annual PCP Team Chronic Disease Visit [facility] Start: 11-20-2025 Annual PCP Team Chronic Disease Visit Annual PCP Team Chronic Disease Visit [facility] Start: 10-20-2025 Annual PCP Team Chronic Disease Visit Annual PCP Team Chronic Disease Visit [facility] Start: 10-20-2025 BP Controlled (<130/80) BP Controlled (<130/80) [facility] Start: 10-17-2025 BP Controlled (<130/80) BP Controlled (<130/80) [facility] Start: 10-11-2025 Annual PCP Team Chronic Disease Visit Annual PCP Team Chronic Disease Visit [facility] Start: 10-11-2025 BP Controlled (<130/80) BP Controlled (<130/80) [facility] Start: 10-11-2025 Hepatitis B surface antibody level LDL Cholesterol [facility] Start: 07-27-2025 Annual PCP Team Chronic Disease Visit Annual PCP Team Chronic Disease Visit [facility] Start: 07-27-2025 BP Controlled (<130/80) BP Controlled (<130/80) [facility] Start: 07-27-2025 Hepatitis B Vaccine (1 of 3 - 19+ 3-dose series) Hepatitis B Vaccine (1 of 3 - 19+ 3-dose series) [facility] Comment on above: Postponed from 1997 (Declined at t his time) Start: 07-27-2025 Urine microalbumin profile DTaP,Tdap,Td Vaccine (2 - Td or Tdap) [facility] Comment on above: Postponed from 10/03/2022 (Declined at t his time) Start: 06-30-2025 Annual PCP Team Chronic Disease Visit Annual PCP Team Chronic Disease Visit [facility] Start: 06-30-2025 BP Controlled (<130/80) BP Controlled (<130/80) [facility] Start: 06-24-2025 Hemoglobin A1c measurement HbA1C [facility] Start: 04-28-2025 Annual PCP Team Chronic Disease Visit Annual PCP Team Chronic Disease Visit [facility] Start: 04-16-2025 Screening for malignant neoplasm of colon Colorectal Cancer Screening [facility] Comment on above: Postponed from 2023 (Declined at t his time) Start: 03-17-2025 Annual PCP Team Chronic Disease Visit Annual PCP Team Chronic Disease Visit [facility] Start: 02-20-2025 End: 02-20-2025 Patient encounter procedure 02/20/2025 3:00 PM EDT Office Visit Pulmonary Medicine [address] [place] [address] Charis Swan APRN.TAX REVENUE OFFICER [address] [place] [address] 4 mo follow up Pulmonary Medicine Comment on above: 4 mo follow up Start: 02-16-2025 Annual PCP Team Chronic Disease Visit Annual PCP Team Chronic Disease Visit [facility] Start: 02-01-2025 Annual PCP Team Chronic Disease Visit Annual PCP Team Chronic Disease Visit [facility] Start: 02-01-2025 BP Controlled (<130/80) BP Controlled (<130/80) [facility] Start: 02-01-2025 Covid-19 Vaccine ( season) Covid-19 Vaccine () [facility] Comment on above: Postponed from 01/16/2024 (Declined at t his time) Start: 02-01-2025 Covid-19 Vaccine ( season) Covid-19 Vaccine () [facility] Comment on above: Postponed from 01/16/2024 (Declined at t his time) Start: 01-31-2025 Hemoglobin A1c measurement HbA1C [facility] Start: 01-23-2025 End: 01-23-2025 Patient encounter procedure 01/23/2025 1:00 PM EDT Office Visit [facility] [place] [address] [place] [id number] Babar Phillip MD [address] [facility], [place] [address] 3 month follow up [facility] Comment on above: 3 month follow up Start: 01-20-2025 Annual PCP Team Chronic Disease Visit Annual PCP Team Chronic Disease Visit [facility] Start: 01-19-2025 End: 01-19-2025 Patient encounter procedure 01/19/2025 1:00 PM EDT Office Visit Internal Medicine [place] [address] [facility], [place] [address] Caryn Lowery APRN.TAX REVENUE OFFICER [address] [place], [place] [id number] 3 month follow up [facility] [place] Comment on above: 3 month follow up Start: 01-15-2025 Influenza vaccination Influenza Vaccine (#1) [facility] Start: 01-12-2025 Annual PCP Team Chronic Disease Visit Annual PCP Team Chronic Disease Visit [facility] Start: 01-02-2025 Annual PCP Team Chronic Disease Visit Annual PCP Team Chronic Disease Visit [facility] Start: 12-29-2024 End: 12-29-2024 Patient encounter procedure 12/29/2024 1:00 PM EDT Office Visit Internal Medicine [place] [address] [place], [place] [address] Caryn Lowery APRN.TAX REVENUE OFFICER [address] [place], [place] [phone] Follow up breast abcess [facility] Comment on above: Follow up breast abcess Start: 12-26-2024 End: 12-26-2024 Patient encounter procedure General Surgery Comment on above: Left breast abscess [N61.1] Left breast abscess, urgent care referral, started on doxy bjs Start: 12-25-2024 End: 12-25-2024 Patient encounter procedure 12/25/2024 3:00 PM EDT Office Visit Internal Medicine [place] [address] [facility], [place] [id number] Caryn Lowery APRN.TAX REVENUE OFFICER [address] [place], [place] [phone] Follow up boil [facility] Comment on above: Follow up boil Start: 12-25-2024 [facility] Start: 12-02-2024 Annual PCP Team Chronic Disease Visit Annual PCP Team Chronic Disease Visit [facility] Start: 12-02-2024 BP Controlled (<130/80) BP Controlled (<130/80) [facility] Start: 11-14-2024 Annual PCP Team Chronic Disease Visit Annual PCP Team Chronic Disease Visit [facility] Start: 11-13-2024 Influenza vaccination Influenza Vaccine (#1) [facility] Comment on above: Postponed from 01/16/2024 (Declined at t his time) Start: 10-27-2024 Hemoglobin A1c measurement HbA1C [facility] Start: 10-26-2024 End: 10-26-2024 Patient encounter procedure [facility] Comment on above: 3 month follow up Chest pain, unspecif ied type [R07.9]; SOB (shortness of breath) [R06.02]; Elevated d-dimer [R79.89] Start: 10-20-2024 End: 10-20-2024 Patient encounter procedure 10/20/2024 11:20 AM EDT Office Visit [facility] [place] [address] [place] [address] Caryn Lowery APRN.TAX REVENUE OFFICER [address] [place] [address] 1 week follow up [facility] [place] Comment on above: 1 week follow up Start: 10-19-2024 Annual PCP Team Chronic Disease Visit Annual PCP Team Chronic Disease Visit [facility] Start: 10-17-2024 End: 10-17-2024 Patient encounter procedure Pulmonary Medicine Comment on above: 4 MTH F/U Start: 10-12-2024 Annual PCP Team Chronic Disease Visit Annual PCP Team Chronic Disease Visit [facility] Start: 10-11-2024 End: 01-10-2025 Bacteria identified in Unspecified specimen by Respiratory culture [facility] Work Phone: Comment on above: Expected: 10/11/2024, Expires: Start: 10-03-2024 Hepatitis B surface antibody level LDL Cholesterol [facility] Start: 07-27-2024 End: 10-26-2024 Hemoglobin A1c in Blood HEMOGLOBIN A1C Lab Routine Controlled type 2 diabetes mellitus without complication, without long-term current use of insulin (HCC) Expected: 07/27/2024, Expires: 10/26/2024 [facility] Work Phone: Comment on above: Expected: 07/27/2024, Expires: Start: 07-27-2024 End: 10-26-2024 Thyrotropin [Units/volume] in Serum or Plasma THYROID STIMULATING HORMONE Lab Routine Hypothyroidism, unspecified type Expected: 07/27/2024, Expires: 10/26/2024 [facility] Comment on above: Expected: 07/27/2024, Expires: Start: 07-27-2024 End: 07-27-2024 Patient encounter procedure 07/27/2024 1:00 PM EDT Office Visit Internal Medicine [place] [address] [place] [address] Caryn Lowery APRN.TAX REVENUE OFFICER [address] [place], [place] [id number] 3 month follow up [facility] [place] Comment on above: 3 month follow up Start: 07-14-2024 Annual PCP Team Chronic Disease Visit Annual PCP Team Chronic Disease Visit [facility] Start: 07-14-2024 BP Controlled (<130/80) BP Controlled (<130/80) [facility] Start: 06-30-2024 End: 06-30-2024 Patient encounter procedure 06/30/2024 1:00 PM EST Office Visit Internal Medicine [place] [address] [place] [address] Caryn Lowery, OVERAGE SHORTAGE AND DAMAGE CLERK.TAX REVENUE OFFICER [address] [place], [place] [phone] DM follow up [facility] [place] Comment on above: DM follow up Start: 05-31-2024 Annual PCP Team Chronic Disease Visit Annual PCP Team Chronic Disease Visit [facility] Start: 05-31-2024 Covid-19 Vaccine (#1) Covid-19 Vaccine (#1) [facility] Comment on above: Postponed from 1978 (Declined at t his time) Start: 05-31-2024 Covid-19 Vaccine ( season) Covid-19 Vaccine ( season) [facility] Comment on above: Postponed from 01/15/2023 (Declined at t his time) Start: 05-31-2024 Hepatitis B Vaccine (1 of 3 - 19+ 3-dose series) Hepatitis B Vaccine (1 of 3 - 19+ 3-dose series) [facility] Comment on above: Postponed from 1997 (Declined at t his time) Start: 05-31-2024 Hepatitis B Vaccine (1 of 3 - 3-dose series) Hepatitis B Vaccine (1 of 3 - 3-dose series) [facility] Comment on above: Postponed from 1978 (Declined at t his time) Start: 05-31-2024 Pneumococcal vaccination Pneumococcal Vaccine (2 of 2 - PPSV23 or PCV20) [facility] Comment on above: Postponed from 04/23/2021 (Declined at t his time) Start: 05-31-2024 Screening for malignant neoplasm of cervix [facility] Comment on above: Postponed from 08/23/2013 (Declined at t his time) Start: 05-31-2024 Spirometry Spirometry [facility] Comment on above: Postponed from 01/10/1996 (Declined at t his time) Start: 05-31-2024 Urine microalbumin profile DTaP,Tdap,Td Vaccine (2 - Td or Tdap) [facility] Comment on above: Postponed from 10/03/2022 (Declined at t his time) Start: 05-23-2024 End: 05-23-2024 Patient encounter procedure 05/23/2024 3:15 PM EST Office Visit Pulmonary Medicine [address] [place] [address] Elle Boone MD [address] [place], [place] [id number] Shortness of breath [R06.02] Pulmonary Medicine Comment on above: Shortness of breath [R06.02] Start: 05-23-2024 End: 05-23-2024 ambulatory 05/23/2024 2:45 PM EST Procedure PULM LAB [facility] [address] [place] [address] Wstr, Pulm Lab [facility] [address] [place] [address] Shortness of breath [R06.02] PULM LAB [facility] Comment on above: Shortness of breath [R06.02] Start: 04-28-2024 End: 04-28-2024 Patient encounter procedure 04/28/2024 11:20 AM EST Office Visit Internal Medicine [place] [address] [facility] [place] [address] Caryn Lowery APRN.TAX REVENUE OFFICER [address] [place] [address] Medication follow up up [facility] Comment on above: Medication follow up up Start: 04-17-2024 End: 04-17-2024 Patient encounter procedure 04/17/2024 1:30 PM EST Office Visit Pulmonary Medicine [address] [place] [address] Elle Boone MD [address] [place] [address] Shortness of breath [R06.02] [facility]monary Medicine Comment on above: Shortness of breath [R06.02] Start: 04-17-2024 End: 04-17-2024 ambulatory 04/17/2024 1:00 PM EST Procedure PULM LAB [facility] [address] [place] [address] Wstr, Pulm Lab [facility] [address] [place] [address] Shortness of breath [R06.02] PULM LAB [facility] WS Comment on above: Shortness of breath [R06.02] Start: 04-12-2024 Annual PCP Team Chronic Disease Visit Annual PCP Team Chronic Disease Visit [facility] Start: 04-05-2024 Hemoglobin A1c measurement HbA1C [facility] Start: 03-15-2024 End: 03-15-2024 Patient encounter procedure 03/15/2024 2:20 PM EDT Office Visit [facility] [place] [address] [place] [address] Caryn Lowery APRN.TAX REVENUE OFFICER [address] [place] [address] 6 week follow up [facility] [place] Comment on above: 6 week follow up Start: 03-03-2024 Annual PCP Team Chronic Disease Visit Annual PCP Team Chronic Disease Visit [facility] Start: 03-03-2024 BP Controlled (<130/80) BP Controlled (<130/80) [facility] in Start: 02-29-2024 End: 02-29-2024 Patient encounter procedure 02/29/2024 1:40 PM EDT Appointment Cat Scan [address] [place] [address] Shortness of breath [R06.02] Cat Scan Comment on above: Shortness of breath [R06.02] Start: 02-29-2024 End: 02-29-2024 Patient encounter procedure 02/29/2024 8:40 AM EDT Appointment Cat Scan [address] [place] [address] Shortness of breath [R06.02] Cat Scan Comment on above: Shortness of breath [R06.02] Start: 02-26-2024 Hepatitis B surface antibody level LDL Cholesterol [facility] Start: 02-25-2024 End: 05-26-2024 A. FUMIGATUS AB, IGG [facility] Comment on above: Expected: 02/25/2024, Expires: Start: 02-25-2024 End: 05-26-2024 Aspergillus fumigatus IgE Ab [Units/volume] in Serum [facility] Comment on above: Expected: 02/25/2024, Expires: Start: 02-25-2024 End: 05-26-2024 CBC W Auto Differential panel - Blood [facility] Work Phone: Comment on above: Expected: 02/25/2024, Expires: Start: 02-25-2024 End: 05-26-2024 IgE [Units/volume] in Serum or Plasma [facility] Comment on above: Expected: 02/25/2024, Expires: Start: 02-21-2024 End: 02-21-2024 Patient encounter procedure 02/21/2024 2:30 PM EDT Office Visit Orthopaedics [address] [place] [facility] [address] Duran Blunt MD [address] [facility] [place] [address] Right knee pain Orthopaedics Comment on above: Right knee pain Start: 02-02-2024 End: 02-02-2024 Patient encounter procedure 02/02/2024 12:20 PM EDT Office Visit [facility] [place] [address] [place] [address] Caryn Lowery APRN.TAX REVENUE OFFICER [address] [place] [address] 4 week follow up [facility] [place] Comment on above: 4 week follow up Start: 01-31-2024 End: 01-31-2024 Patient encounter procedure 01/31/2024 2:00 PM EDT Office Visit Orthopaedics [address] [place] [address] Duran Blutn MD [address] [place] [place] [address] Right knee pain Orthopaedics Comment on above: Right knee pain Start: 01-24-2024 End: 01-24-2024 Patient encounter procedure Orthopaedics Comment on above: Right knee pain Right knee pain, uns pecified chronicity [M25.561] Start: 01-21-2024 End: 04-21-2024 Basic metabolic 2000 panel - Serum or Plasma [facility] Work Phone: Comment on above: Expected: 01/21/2024, Expires: Start: 01-16-2024 Covid-19 Vaccine (1 - 2023-24 season) Covid-19 Vaccine () [facility] Start: 01-16-2024 Influenza vaccination Influenza Vaccine (#1) [facility] Start: 01-03-2024 End: 04-03-2024 Basic metabolic 2000 panel - Serum or Plasma [facility] Comment on above: Expected: 01/03/2024, Expires: Start: 01-03-2024 End: 04-03-2024 Magnesium [Mass/volume] in Serum or Plasma [facility] Comment on above: Expected: 01/03/2024, Expires: Start: 01-03-2024 End: 04-03-2024 Natriuretic peptide.B prohormone N-Terminal [Mass/volume] in Serum or Plasma [facility] Work Phone: Comment on above: Expected: 01/03/2024, Expires: Start: 01-03-2024 End: 01-03-2024 Patient encounter procedure 01/03/2024 1:00 PM EDT Office Visit Internal Medicine [place] [address] [place] [address] Caryn Lowery APRN.TAX REVENUE OFFICER [address] [place], [place] [id number] 4 week follow up [facility] [place] Comment on above: 4 week follow up Start: 01-01-2024 ANNUAL PCP TEAM CHRONIC DISEASE VISIT ANNUAL PCP TEAM CHRONIC DISEASE VISIT [facility] Start: 12-15-2023 ANNUAL PCP TEAM CHRONIC DISEASE VISIT ANNUAL PCP TEAM CHRONIC DISEASE VISIT [facility] Start: 12-15-2023 BP CONTROLLED (<130/80) BP CONTROLLED (<130/80) [facility] in Start: 12-03-2023 End: 12-03-2023 Patient encounter procedure 12/03/2023 1:40 PM EDT Office Visit [facility] [place] [address] [place] [address] Caryn Lowery APRN.TAX REVENUE OFFICER [address] [place], [place] [id number] 2 week follow up [facility] [place] Comment on above: 2 week follow up Start: 11-29-2023 Hemoglobin A1c measurement HbA1C [facility] Start: 11-24-2023 ANNUAL PCP TEAM CHRONIC DISEASE VISIT ANNUAL PCP TEAM CHRONIC DISEASE VISIT [facility] Start: 11-24-2023 BP CONTROLLED (<130/80) BP CONTROLLED (<130/80) [facility] Start: 11-23-2023 End: 02-22-2024 SYPHILIS TOTAL W/REFLEX SYPHILIS TOTAL W/REFLEX Lab Routine STD exposure Expected: 11/23/2023, Expires: 02/22/2024 [facility] Work Phone: Comment on above: Expected: 11/23/2023, Expires: Start: 11-23-2023 End: 11-23-2023 Patient encounter procedure 11/23/2023 1:30 PM EDT Appointment [facility] [address] [place] [address] Epigastric pain [R10.13] [facility] Comment on above: Epigastric pain [R10.13] Start: 11-15-2023 End: 02-14-2024 Bacteria identified in Urine by Culture [facility] Comment on above: Expected: 11/15/2023, Expires: Start: 11-15-2023 End: 11-15-2023 Patient encounter procedure 11/15/2023 1:20 PM EDT Office Visit [facility] [place] [address] [place] [address] Caryn Lowery APRN.TAX REVENUE OFFICER [address] [place] [address] Follow up [facility] Medicine [place] Comment on above: Follow up Start: 10-29-2023 End: 10-29-2023 Patient encounter procedure 10/29/2023 2:20 PM EDT Office Visit [facility] [place] [address] [place], [place] [address] Caryn Lowery APRN.TAX REVENUE OFFICER [address] [place], [place] [id number] 2 week follow up [facility] [place] Comment on above: 2 week follow up Start: 10-15-2023 End: 01-14-2024 CBC W Auto Differential panel - Blood CBC + DIFF Lab Routine Essential hypertension Controlled type 2 diabetes mellitus without complication, without long-term current use of insulin (HCC) Expected: 10/15/2023 (Approximate), Expires: 01/14/2024 [facility] Work Phone: Comment on above: Expected: 10/15/2023 (Approximate), Expi res: 01/14/2024 Start: 10-15-2023 End: 01-14-2024 Comprehensive metabolic 2000 panel - Serum or Plasma COMP METABOLIC PANEL Lab Routine Other hyperlipidemia Essential hypertension Controlled type 2 diabetes mellitus without complication, without long-term current use of insulin (HCC) Expected: 10/15/2023 (Approximate), Expires: 01/14/2024 [facility] Work Phone: Comment on above: Expected: 10/15/2023 (Approximate), Expi res: 01/14/2024 Start: 10-15-2023 End: 01-14-2024 Hemoglobin A1c in Blood HGB A1C Lab Routine Controlled type 2 diabetes mellitus without complication, without long-term current use of insulin (HCC) Expected: 10/15/2023 (Approximate), Expires: 01/14/2024 [facility] Work Phone: Comment on above: Expected: 10/15/2023 (Approximate), Expi res: 01/14/2024 Start: 10-15-2023 End: 01-14-2024 Lipid 1996 panel - Serum or Plasma LIPID PANEL BASIC Lab Routine Other hyperlipidemia Expected: 10/15/2023 (Approximate), Expires: 01/14/2024 [facility] Work Phone: Comment on above: Expected: 10/15/2023 (Approximate), Expi res: 01/14/2024 Start: 10-15-2023 End: 01-14-2024 Thyrotropin [Units/volume] in Serum or Plasma TSH BLD Lab Routine Hypothyroidism, unspecified type Expected: 10/15/2023 (Approximate), Expires: 01/14/2024 [facility] Work Phone: Comment on above: Expected: 10/15/2023 (Approximate), Expi res: 01/14/2024 Start: 10-13-2023 End: 01-12-2024 HIV 1+2 Ab [Presence] in Serum or Plasma by Immunoassay [facility] Comment on above: Expected: 10/13/2023, Expires: Start: 10-13-2023 End: 01-12-2024 SYPHILIS TOTAL W/REFLEX [facility] Work Phone: Comment on above: Expected: 10/13/2023, Expires: Start: 08-27-2023 Hemoglobin A1c/Hemoglobin.total in Blood HbA1C [facility] Start: 08-25-2023 ANNUAL PCP TEAM CHRONIC DISEASE VISIT ANNUAL PCP TEAM CHRONIC DISEASE VISIT [facility] Start: 08-25-2023 BP CONTROLLED (<130/80) BP CONTROLLED (<130/80) [facility] in Start: 07-18-2023 ANNUAL PCP TEAM CHRONIC DISEASE VISIT ANNUAL PCP TEAM CHRONIC DISEASE VISIT [facility] Start: 06-30-2023 End: 07-14-2023 COVID & INFLUENZA A/B & RSV NAAT, ROUTINE COVID & INFLUENZA A/B & RSV NAAT, ROUTINE Microbiology Routine URI, acute Expected: 06/30/2023, Expires: 07/14/2023 [facility] Work Phone: Comment on above: Expected: 06/30/2023, Expires: Start: 06-03-2023 BP CONTROLLED (<130/80) BP CONTROLLED (<130/80) [facility] in Start: 05-26-2023 Hemoglobin A1c/Hemoglobin.total in Blood HBA1C [facility] Start: 05-25-2023 ANNUAL PCP TEAM CHRONIC DISEASE VISIT ANNUAL PCP TEAM CHRONIC DISEASE VISIT [facility] Start: 05-25-2023 BP CONTROLLED (<130/80) BP CONTROLLED (<130/80) [facility] in Start: 05-17-2023 Depression Assessment Depression Assessment [facility] Start: 05-03-2023 Anes dx/ther nerve block/injection prone pos ANESTH N BLOCK/INJ PRONE [facility] Start: 05-03-2023 Njx dx/ther sbst intrlmnr lmbr/sac w/img gdn NJX INTERLAMINAR LMBR/SAC [facility] Start: 05-03-2023 Fluoroscopic guidance O.R. Fluoro for C-Arm [facility] Start: 05-03-2023 [facility] [facility] Start: 05-03-2023 Patient discharge [facility] Start: 04-15-2023 ANNUAL PCP TEAM CHRONIC DISEASE VISIT ANNUAL PCP TEAM CHRONIC DISEASE VISIT [facility] Start: 04-15-2023 BP CONTROLLED (<130/80) BP CONTROLLED (<130/80) [facility] Start: 04-08-2023 ANNUAL PCP TEAM CHRONIC DISEASE VISIT ANNUAL PCP TEAM CHRONIC DISEASE VISIT [facility] Start: 03-25-2023 ANNUAL PCP TEAM CHRONIC DISEASE VISIT ANNUAL PCP TEAM CHRONIC DISEASE VISIT [facility] Start: 03-25-2023 BP CONTROLLED (<130/80) BP CONTROLLED (<130/80) [facility] Start: 03-10-2023 Hepatitis B surface antibody level LDL CHOLESTEROL [facility] Start: 02-23-2023 End: 04-25-2023 CBC W Auto Differential panel - Blood CBC + DIFF Lab Routine Controlled type 2 diabetes mellitus without complication, without long-term current use of insulin (HCC) Expected: 02/23/2023 (Approximate), Expires: 04/25/2023 [facility] Work Phone: Comment on above: Expected: 02/23/2023 (Approximate), Expi res: 04/25/2023 Start: 02-23-2023 End: 04-25-2023 Comprehensive metabolic 2000 panel - Serum or Plasma COMP METABOLIC PANEL Lab Routine Other hyperlipidemia Controlled type 2 diabetes mellitus without complication, without long-term current use of insulin (HCC) Expected: 02/23/2023 (Approximate), Expires: 04/25/2023 [facility] Work Phone: Comment on above: Expected: 02/23/2023 (Approximate), Expi res: 04/25/2023 Start: 02-23-2023 End: 04-25-2023 Hemoglobin A1c in Blood HGB A1C Lab Routine Controlled type 2 diabetes mellitus without complication, without long-term current use of insulin (HCC) Expected: 02/23/2023 (Approximate), Expires: 04/25/2023 [facility] Work Phone: Comment on above: Expected: 02/23/2023 (Approximate), Expi res: 04/25/2023 Start: 02-23-2023 End: 04-25-2023 Lipid 1996 panel - Serum or Plasma LIPID PANEL BASIC Lab Routine Other hyperlipidemia Expected: 02/23/2023 (Approximate), Expires: 04/25/2023 [facility] Work Phone: Comment on above: Expected: 02/23/2023 (Approximate), Expi res: 04/25/2023 Start: 02-23-2023 End: 04-25-2023 Thyrotropin [Units/volume] in Serum or Plasma TSH BLD Lab Routine Hypothyroidism, unspecified type Expected: 02/23/2023 (Approximate), Expires: 04/25/2023 [facility] Work Phone: Comment on above: Expected: 02/23/2023 (Approximate), Expi res: 04/25/2023 Start: 02-20-2023 ANNUAL PCP TEAM CHRONIC DISEASE VISIT ANNUAL PCP TEAM CHRONIC DISEASE VISIT [facility] Start: 02-15-2023 Anes dx/ther nerve block/injection prone pos ANESTH N BLOCK/INJ PRONE [facility] Start: 02-15-2023 Njx dx/ther agt pvrt facet jt lmbr/sac 1 level INJ PARAVERT F JNT L/S 1 [facility] Start: 02-15-2023 Njx dx/ther agt pvrt facet jt lmbr/sac 2nd level INJ PARAVERT F JNT L/S 2 [facility] Start: 02-15-2023 Injection of facet joint [facility] Start: 02-15-2023 Injection of spinal epidural space [facility] Start: 02-15-2023 X-ray of lumbosacral spine L/S Spine Min 4 Views [facility] Start: 02-15-2023 Patient discharge [facility] Start: 01-23-2023 ANNUAL PCP TEAM CHRONIC DISEASE VISIT ANNUAL PCP TEAM CHRONIC DISEASE VISIT [facility] Start: 01-23-2023 BP CONTROLLED (<130/80) BP CONTROLLED (<130/80) [facility] Start: 01-15-2023 Influenza vaccination [facility] Start: 2023 COLOGUARD (FIT-DNA) COLOGUARD (FIT-DNA) [facility] Start: [address] COLONOGRAPHY [facility] Start: 2023 FECAL OCCULT BLOOD FECAL OCCULT BLOOD [facility] Start: 2023 Screening for malignant neoplasm of colon [facility] Start: 2023 SIGMOIDOSCOPY SIGMOIDOSCOPY [facility] Start: 01-04-2023 Anes dx/ther nerve block/injection prone pos ANESTH N BLOCK/INJ PRONE [facility] Start: 01-04-2023 Njx dx/ther sbst intrlmnr lmbr/sac w/img gdn NJX INTERLAMINAR LMBR/SAC [facility] Start: 01-04-2023 Injection using fluoroscopic guidance [facility] Start: 01-04-2023 Patient discharge [facility] Start: 12-22-2022 ANNUAL PCP TEAM CHRONIC DISEASE VISIT ANNUAL PCP TEAM CHRONIC DISEASE VISIT [facility] Start: 12-19-2022 BP CONTROLLED (<130/80) BP CONTROLLED (<130/80) [facility] Start: 12-10-2022 Hemoglobin A1c/Hemoglobin.total in Blood HBA1C [facility] Start: 10-20-2022 ANNUAL PCP TEAM CHRONIC DISEASE VISIT ANNUAL PCP TEAM CHRONIC DISEASE VISIT [facility] Start: 10-20-2022 BP CONTROLLED (<130/80) BP CONTROLLED (<130/80) [facility] Start: 10-09-2022 Hepatitis B surface antibody level LDL CHOLESTEROL [facility] Start: 10-03-2022 Urine microalbumin profile [facility] Start: 09-08-2022 Hemoglobin A1c/Hemoglobin.total in Blood HBA1C [facility] Start: 08-24-2022 End: 10-24-2022 Magnesium [Mass/volume] in Serum or Plasma [facility] Work Phone: Comment on above: Expected: 08/24/2022, Expires: Start: 08-24-2022 End: 10-24-2022 Thyrotropin [Units/volume] in Serum or Plasma [facility] Work Phone: Comment on above: Expected: 08/24/2022, Expires: 3 Start: 08-24-2022 End: 10-24-2022 Thyroxine (T4) free [Mass/volume] in Serum or Plasma [facility] Work Phone: Comment on above: Expected: 08/24/2022, Expires: 3 Start: 08-24-2022 End: 10-24-2022 Triiodothyronine (T3) [Mass/volume] in Serum or Plasma [facility] Work Phone: Comment on above: Expected: 08/24/2022, Expires: 3 Start: 08-03-2022 Injection of spinal epidural space [facility] Start: 08-03-2022 Injection using fluoroscopic guidance [facility] Start: 08-03-2022 Patient discharge [facility] Start: 07-23-2022 Hemoglobin A1c/Hemoglobin.total in Blood HBA1C [facility] Start: 07-17-2022 End: 09-16-2022 CBC W Auto Differential panel - Blood [facility] Work Phone: Comment on above: Expected: 07/17/2022, Expires: 3 Start: 07-17-2022 End: 09-16-2022 Comprehensive metabolic 2000 panel - Serum or Plasma [facility] Work Phone: Comment on above: Expected: 07/17/2022, Expires: 3 Start: 07-16-2022 BP CONTROLLED (<130/80) BP CONTROLLED (<130/80) [facility] Start: 07-03-2022 ANNUAL PCP TEAM CHRONIC DISEASE VISIT ANNUAL PCP TEAM CHRONIC DISEASE VISIT [facility] Start: 07-03-2022 COVID-19 VACCINE (#1) COVID-19 VACCINE (#1) [facility] Comment on above: Postponed from 1983 (Declined at t his time) Postponed from 07/12 (Declined at this time) Start: 07-03-2022 COVID-19 VACCINE (1) COVID-19 VACCINE (1) [facility] Comment on above: Postponed from 1983 (Declined at t his time) Start: 07-03-2022 SPIROMETRY SPIROMETRY [facility] Comment on above: Postponed from 01/10/1996 (Declined at t his time) Start: 05-25-2022 End: 07-25-2022 CBC W Auto Differential panel - Blood CBC + DIFF Lab Routine Epigastric pain Decreased appetite Nausea Dizziness Expected: 05/25/2022, Expires: 07/25/2022 [facility] Work Phone: Comment on above: Expected: 05/25/2022, Expires: 3 Start: 05-25-2022 End: 07-25-2022 Comprehensive metabolic 2000 panel - Serum or Plasma COMP METABOLIC PANEL Lab Routine Epigastric pain Decreased appetite Nausea Dizziness Expected: 05/25/2022, Expires: 07/25/2022 [facility] Work Phone: Comment on above: Expected: 05/25/2022, Expires: 3 Start: 05-25-2022 End: 07-25-2022 Hemoglobin A1c in Blood HGB A1C Lab Routine Controlled type 2 diabetes mellitus without complication, without long-term current use of insulin (HCC) Expected: 05/25/2022, Expires: 07/25/2022 [facility] Work Phone: Comment on above: Expected: 05/25/2022, Expires: 3 Start: 05-17-2022 DEPRESSION ASSESSMENT DEPRESSION ASSESSMENT [facility] Start: 03-25-2022 End: 05-25-2022 Amylase [Enzymatic activity/volume] in Serum or Plasma AMYLASE BLD Lab Routine RUQ pain Nausea Epigastric pain Diarrhea, unspecified type Expected: 03/25/2022, Expires: 05/25/2022 [facility] Work Phone: Comment on above: Expected: 03/25/2022, Expires: 3 Start: 03-25-2022 End: 05-25-2022 CBC W Auto Differential panel - Blood CBC + DIFF Lab Routine RUQ pain Epigastric pain Diarrhea, unspecified type Expected: 03/25/2022, Expires: 05/25/2022 [facility] Work Phone: Comment on above: Expected: 03/25/2022, Expires: 3 Start: 03-25-2022 End: 05-25-2022 Comprehensive metabolic 2000 panel - Serum or Plasma COMP METABOLIC PANEL Lab Routine RUQ pain Nausea Epigastric pain Diarrhea, unspecified type Expected: 03/25/2022, Expires: 05/25/2022 [facility] Work Phone: Comment on above: Expected: 03/25/2022, Expires: 3 Start: 03-25-2022 End: 05-25-2022 Lipase [Enzymatic activity/volume] in Serum or Plasma LIPASE BLD Lab Routine RUQ pain Nausea Epigastric pain Diarrhea, unspecified type Expected: 03/25/2022, Expires: 05/25/2022 [facility] Work Phone: Comment on above: Expected: 03/25/2022, Expires: 3 Start: 03-02-2022 Colonoscopy COLONOSCOPY [facility] Start: 03-02-2022 COLORECTAL CANCER SCREENING COLORECTAL CANCER SCREENING [facility] Start: 03-02-2022 Screening for malignant neoplasm of colon [facility] Start: 02-20-2022 End: 04-22-2022 CBC W Auto Differential panel - Blood CBC + DIFF Lab Routine Controlled type 2 diabetes mellitus without complication, without long-term current use of insulin (HCC) Expected: 02/20/2022, Expires: 04/22/2022 [facility] Work Phone: Comment on above: Expected: 02/20/2022, Expires: 2 Start: 02-20-2022 End: 04-22-2022 Comprehensive metabolic 2000 panel - Serum or Plasma COMP METABOLIC PANEL Lab Routine Controlled type 2 diabetes mellitus without complication, without long-term current use of insulin (HCC) Other hyperlipidemia Expected: 02/20/2022, Expires: 04/22/2022 [facility] Work Phone: Comment on above: Expected: 02/20/2022, Expires: 2 Start: 02-20-2022 End: 04-22-2022 Hemoglobin A1c in Blood HGB A1C Lab Routine Controlled type 2 diabetes mellitus without complication, without long-term current use of insulin (HCC) Expected: 02/20/2022, Expires: 04/22/2022 [facility] Work Phone: Comment on above: Expected: 02/20/2022, Expires: 2 Start: 02-20-2022 End: 04-22-2022 Lipid 1996 panel - Serum or Plasma LIPID PANEL BASIC Lab Routine Other hyperlipidemia Expected: 02/20/2022, Expires: 04/22/2022 [facility] Work Phone: Comment on above: Expected: 02/20/2022, Expires: 2 Start: 02-20-2022 End: 04-22-2022 Thyrotropin [Units/volume] in Serum or Plasma TSH BLD Lab Routine Hypothyroidism, unspecified type Expected: 02/20/2022, Expires: 04/22/2022 [facility] Work Phone: Comment on above: Expected: 02/20/2022, Expires: 2 Start: 01-15-2022 Influenza vaccination [facility] Start: 12-31-2021 Hemoglobin A1c/Hemoglobin.total in Blood HBA1C [facility] Start: 11-11-2021 Adult depression screening assessment DEPRESSION SCREENING [facility] Start: 10-15-2021 Hepatitis B surface antibody level LDL CHOLESTEROL [facility] Start: 10-07-2021 End: 12-07-2021 SCHEDULE LAB TESTING SCHEDULE LAB TESTING Lab Routine Expected: 10/07/2021, Expires: 12/07/2021 [facility] Work Phone: Comment on above: Expected: 10/07/2021, Expires: 2 Start: 05-17-2021 DEPRESSION ASSESSMENT DEPRESSION ASSESSMENT [facility] Start: 04-23-2021 Pneumococcal vaccination Pneumococcal Vaccine (2 - PPSV23 or PCV20) [facility] Start: 01-10-2020 PAP TESTING PAP TESTING [facility] Start: 2018 Mammography [facility] Start: 2018 Screening for malignant neoplasm of breast Mammogram Screening [facility] Start: 08-23-2013 HPV TESTING HPV TESTING [facility] Start: 08-23-2013 PAP TESTING PAP TESTING [facility] Start: 08-23-2013 Screening for malignant neoplasm of cervix Cervical Cancer Screening [facility] Start: 01-10-2008 Zoledronic acid therapy ALPHA-1 ANTITRYPSIN DEFICIENCY SCREENING [facility] Start: 1997 HEPATITIS B (1 of 3 - Risk 3-dose series) HEPATITIS B (1 of 3 - Risk 3-dose series) [facility] Start: 1997 Hepatitis B Vaccine (1 of 3 - 19+ 3-dose series) Hepatitis B Vaccine (1 of 3 - 19+ 3-dose series) [facility] Start: 01-10-1996 BP CONTROLLED (<130/80) BP CONTROLLED (<130/80) [facility] in Start: 01-10-1996 Depression Screening Depression Screening [facility] Start: 01-10-1996 SPIROMETRY SPIROMETRY [facility] Start: 01-10-1984 PNEUMOCOCCAL (1 - PCV) PNEUMOCOCCAL (1 - PCV) [facility] Start: 1978 COVID-19 VACCINE (#1) COVID-19 VACCINE (#1) [facility] Start: 1978 HEPATITIS B (1 of 3 - 3-dose series) HEPATITIS B (1 of 3 - 3-dose series) [facility] Start: 1978 Hepatitis B Vaccine (1 of 3 - 3-dose series) Hepatitis B Vaccine (1 of 3 - 3-dose series) [facility] Bacteria identified in Unspecified specimen by Respiratory culture RESPIRATORY CULTURE AND STAIN Microbiology Routine Shortness of breath Cough, unspecified type Wheezing Low O2 saturation Ordered: 02/17/2024 [facility] Work Phone: Comment on above: Ordered: 02/17/2024 Bacteria identified in Wound by Culture ABSCESS AND WOUND CULTURE WITH GRAM STAIN Microbiology Routine Boil Ordered: 04/01/2024 [facility] Work Phone: Comment on above: Ordered: 04/01/2024 C reactive protein [Mass/volume] in Serum or Plasma [facility] CBC W Auto Different ial panel - Blood [facility] Celiac disease screen [facility] Chlamydia trachomatis+Neisseria gonorrhoeae DNA [Presence] in Unspecified specimen by PREETI with probe detection GONORRHEA/CHLAMYDIA NAAT Lab Routine STD exposure 10/13/2023 12:16 PM EDT [facility] Clostridioides diffi cile toxin genes [Presence] in Stool by PREETI with probe detection C. DIFFICILE PCR Lab Routine Epigastric pain Vomiting and diarrhea 11/15/2023 9:56 PM EDT [facility] End: 06-17-2023 COLONOSCOPY DIAGNOSTIC COLONOSCOPY DIAGNOSTIC Endoscopy Routine Rectal bleeding Diarrhea, unspecified type 1 Occurrences starting 06/17/2022 until 06/17/2023 [facility] Work Phone: Comment on above: 1 Occurrences starting 06/17/2022 until 06/17/2023 COVID & INFLUENZA A/ B & RSV PCR, ROUTINE COVID & INFLUENZA A/B & RSV PCR, ROUTINE Microbiology Routine Shortness of breath Cough, unspecified type Wheezing Malaise 02/02/2024 12:57 PM EDT [facility] End: 05-08-2023 Ct abdomen & pelvis w/contrast material CT ABD/PEL W IVCON Radiology STAT Left lower quadrant abdominal pain 1 Occurrences starting 04/08/2022 until 05/08/2023 [facility] Work Phone: Comment on above: 1 Occurrences starting 04/08/2022 until 05/08/2023 End: 03-18-2025 CT Chest W contrast IV CT CHEST W IVCON Radiology Routine Shortness of breath Cough, unspecified type Wheezing Low O2 saturation 1 Occurrences starting 02/17/2024 until 03/18/2025 [facility] Comment on above: 1 Occurrences starting 02/17/2024 until 03/18/2025 CT Chest W contrast IV CT CHEST W IVCON Radiology Routine Shortness of breath Cough, unspecified type Wheezing Low O2 saturation 02/29/2024 2:25 PM EDT [facility] Work Phone: End: 02-03-2025 CTA Pulmonary arteries for pulmonary embolus W contrast IV CT CHEST W IVCON PE Radiology STAT Chest pain, unspecified type Shortness of breath Palpitations Elevated d-dimer 1 Occurrences starting 01/05/2024 until 02/03/2025 [facility] Work Phone: Comment on above: 1 Occurrences starting 01/05/2024 until 02/03/2025 End: 11-10-2025 CTA Pulmonary arteries for pulmonary embolus W contrast IV CTA CHEST (NONGATED) W IVCON PE Radiology STAT Chest pain, unspecified type SOB (shortness of breath) Elevated d-dimer 1 Occurrences starting 10/11/2024 until 11/10/2025 [facility] Work Phone: Comment on above: 1 Occurrences starting 10/11/2024 until 11/10/2025 End: 12-30-2024 DBT Breast - bilateral screening JET SCREENING [facility] Radiology Routine Encounter for screening mammogram for breast cancer 1 Occurrences starting 12/01/2023 until 12/30/2024 [facility] Work Phone: Comment on above: 1 Occurrences starting 12/01/2023 until 12/30/2024 End: 11-30-2025 DBT Breast - bilateral screening JET SCREENING [facility] Radiology Routine Encounter for screening mammogram for breast cancer 1 Occurrences starting 10/31/2024 until 11/30/2025 [facility] Work Phone: Comment on above: 1 Occurrences starting 10/31/2024 until 11/30/2025 End: 08-25-2023 Echocardiography ECHO Cardiology Routine Shortness of breath Chest pain, unspecified type 1 Occurrences starting 08/24/2022 until 08/25/2023 [facility] Work Phone: Comment on above: 1 Occurrences starting 08/24/2022 until 08/25/2023 End: 06-03-2023 EGD DIAGNOSTIC EGD DIAGNOSTIC Endoscopy Routine Nausea Epigastric pain Decreased appetite 1 Occurrences starting 06/03/2022 until 06/03/2023 [facility] Work Phone: Comment on above: 1 Occurrences starting 06/03/2022 until 06/03/2023 End: 06-17-2023 EGD DIAGNOSTIC EGD DIAGNOSTIC Endoscopy Routine Epigastric pain Nausea and vomiting, unspecified vomiting type 1 Occurrences starting 06/17/2022 until 06/17/2023 [facility] Work Phone: Comment on above: 1 Occurrences starting 06/17/2022 until 06/17/2023 End: 03-07-2025 EMG(NEURO/NI) EMG(NEURO/NI) EMG Routine 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 right upper extremity 1 Occurrences starting 03/07/2024 until 03/07/2025 [facility] Work Phone: Comment on above: 1 Occurrences starting 03/07/2024 until 03/07/2025 ENTERIC BACTERIAL PA DIONTE BY PCR ENTERIC BACTERIAL PANEL BY PCR Lab Routine Epigastric pain Vomiting and diarrhea 11/16/2023 4:10 AM EDT [facility] Erythrocyte sediment ation rate [facility] EXTRA ECOFIX CONTAIN ER PERFORMABLE EXTRA ECOFIX CONTAINER PERFORMABLE Lab Routine Epigastric pain 11/16/2023 4:10 AM EDT [facility] Imaging of liver [facility] Immunoglobulin measurement [facility] LAB EXTRA TUBES LAB EXTRA TUBES Lab Routine Epigastric pain 11/16/2023 4:10 AM EDT [facility] Lactate dehydrogenas e measurement [facility] End: 01-29-2024 [facility] SCREENING [facility] SCREENING Radiology Routine Encounter for screening mammogram for breast cancer 1 Occurrences starting 12/30/2022 until 01/29/2024 [facility] Work Phone: Comment on above: 1 Occurrences starting 12/30/2022 until 01/29/2024 Measurement of respiratory function [facility] Patient Education ED Abscess Inc ision And Drainage ED Cellulitis [facility] Work Phone: Patient referral [facility] Work Phone: Radionuclide gastric emptying study [facility] Radionuclide imaging of liver and/or biliary tract using radioactive isotope [facility] End: 02-27-2023 Screening mammography bi 2-view breast inc cad [facility] SCREENING Radiology Routine Encounter for screening mammogram for breast cancer 1 Occurrences starting 01/28/2022 until 02/27/2023 [facility] Work Phone: Comment on above: 1 Occurrences starting 01/28/2022 until 02/27/2023 Serum immunofixation [facility] US Abdomen limited [facility] End: 12-14-2024 US Abdomen RUQ US ABD RIGHT UPPER QUADRANT Radiology [place] Epigastric pain Vomiting and diarrhea 1 Occurrences starting 11/15/2023 until 12/14/2024 [facility] Work Phone: Comment on above: 1 Occurrences starting 11/15/2023 until 12/14/2024 End: 04-24-2023 Us abdominal real time w/image limited US ABD RT UPPER QUADRANT Radiology Routine RUQ pain Nausea Epigastric pain Diarrhea, unspecified type 1 Occurrences starting 03/25/2022 until 04/24/2023 [facility] Work Phone: Comment on above: 1 Occurrences starting 03/25/2022 until 04/24/2023 End: 08-25-2023 US LEG VEIN DVT UNL VAS LAB US LEG VEIN DVT UNL VAS LAB Vascular Lab Routine Left leg swelling Left leg pain 1 Occurrences starting 08/24/2022 until 08/25/2023 [facility] Work Phone: Comment on above: 1 Occurrences starting 08/24/2022 until 08/25/2023 End: 03-03-2025 XR Chest PA and Lateral XR CHEST 2V FRONTAL/LAT Radiology Routine Shortness of breath Cough, unspecified type Wheezing Acute sinusitis, recurrence not specified, unspecified location 1 Occurrences starting 02/02/2024 until 03/03/2025 [facility] Work Phone: Comment on above: 1 Occurrences starting 02/02/2024 until 03/03/2025 End: 02-17-2025 XR Knee - right 4 Views XR KNEE GENERAL 4V AP BOTH/PA BOTH/LAT/MERC RIGHT Radiology Routine Right knee pain, unspecified chronicity 1 Occurrences starting 01/19/2024 until 02/17/2025 [facility] Work Phone: Comment on above: 1 Occurrences starting 01/19/2024 until 02/17/2025 [facility] Immunizations Immunization Date Immunization Notes Care Provider Fa [facility] 04-28-2024 influenza, seasonal, injectable Caryn 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 Work Phone: [facility] 04-28-2024 pneumococcal conjuga te (PCV20) vaccine, 20 valent (PREVNAR 20) Caryn 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 Work Phone: [facility] 04-28-2024 pneumococcal Conjuga te, unspecified formulation Caryn 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 Work Phone: [facility] Work Phone: 04-28-2024 influenza virus vaccine, unspecified formulation Caryn 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 Work Phone: [facility] 06-02-2023 influenza, injectabl e, quadrivalent, contains preservative Babar Phillip MD Work Phone: [facility] 06-02-2023 influenza virus vaccine, unspecified formulation Caryn 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 Babar Phillip Work Phone: [facility] 02-16-2020 influenza, injectabl e, quadrivalent, contains preservative Duran Blunt MD Work Phone: [facility] 10-03-2012 tetanus toxoid, redu anne diphtheria toxoid, and acellular pertussis vaccine, adsorbed Duran Blunt MD Work Phone: [facility] Payers Date Payer Category Payer Self-pay [id number] 2022 Unknown [id number] 2017 Medicaid [place] [employer] [place] [employer] [id number] 2017-Present [phone] [address] [place] [address] Medicaid [id number] 2017 Medicaid [id number] 2008 Unknown [id number] 2008 Unknown [facility] [id number] 1978 Unknown [id number] 1978 Unknown [id number] 1978 Unknown [id number] 1978 Unknown [id number] 1978 Unknown [id number] Unknown [id number] Unknown [id number] Unknown [id number] Unknown [id number] Unknown [id number] Unknown [id number] Social History Date Type Detail Facility Start: 05-17-1992 End: 02-21-2024 Tobacco smoking status NHIS Smokes tobacco daily [facility] Work Phone: Start: 05-17-1992 History of tobacco use Cigarette Smo ker [facility] Start: 11-12-2020 End: 08-25-2021 Alcohol intake Current drinker of alcohol (finding) [facility] Start: 03-22-2020 End: 02-14-2022 History SDOH Alcohol Frequency 2 [facility] Start: 03-22-2020 End: 02-14-2022 History SDOH Alcohol Std Drinks 1 [facility] Start: 03-31-2011 History SDOH Alcohol Comment Seldom- uses once every couple months [facility] Start: 04-25-2019 End: 03-22-2020 History SDOH Social Connections Phone 5 [facility] Start: 03-22-2020 End: 05-24-2022 History SDOH Social Connections Uatsdin 98 [facility] Start: 04-25-2019 History SDOH Social Connections Living 8 [facility] Start: 04-25-2019 End: 05-24-2022 History SDOH Physical Activity DPW 3 [facility] Start: 11-14-2019 Education 12 [facility] Start: 1980 Sex Assigned At Female C [facility] Start: 10-13-2020 End: 01-22-2022 Exposure to SARS-CoV-2 (event) Not sure [facility] Work Phone: Start: 10-10-2021 End: 10-20-2021 Exposure to SARS-CoV-2 (event) Unable to assess [facility] Start: 03-26-2017 End: 11-23-2022 Cigarettes smoked current (pack per day) - Reported 0.5 [facility] Start: 03-26-2017 End: 02-21-2024 Tobacco use and exposure Smokeless tobacco non-user [facility] Work Phone: Start: 02-19-2021 End: 07-14-2023 Tobacco smoking status Heavy tobacco smoker (finding) [facility] Assigned At [facility] Start: 06-03-2022 End: 12-25-2024 Alcohol intake Ex-drinker (finding) [facility] Start: 07-27-2022 End: 05-13-2023 Tobacco smoking status NHIS Unknown if ever smoked [facility] Start: 12-13-2019 None [facility] Start: 05-24-2019 Spouse/ Signif icant Other [facility] Start: 12-22-2019 Cigarettes [facility] Start: 05-24-2022 End: 11-23-2022 Social connection and isolation panel [facility] Start: 04-17-2012 Frequency of Communication with Friends and Family Not on file [facility] (I/We) worried wheth er (my/our) food would run out before (I/we) got money to buy more. DK or Refused [facility] Start: 08-19-2018 Gender identity Identifies as female gender (finding) [facility] Start: 08-19-2018 Sexual orientation Heterosexual (marivel logan) [facility] Do you feel stress - tense, restless, nervous, or anxious, or unable to sleep at night because your mind is troubled all the time - these days [OSQ] To some extent [facility] Start: 08-19-2017 Occasional [facility] Do you belong to any clubs or organizations such as sikhism groups, unions, fraternal or athletic groups, or school groups? Yes [facility] How often to you hav e a drink containing alcohol? Monthly or less [facility] How many standard drinks containing alcohol do you have on a typical day? 1 or 2 [facility] (I/We) worried wheth er (my/our) food would run out before (I/we) got money to buy more. Never true [facility] In the past 12 month s, was there a time when you were not able to pay the mortgage or rent on time? No [facility] Are you now , , , , never or living with a partner? Living with partner [facility] How often to you hav e a drink containing alcohol? Never [facility] How hard is it for y ou to pay for the very basics like food, housing, medical care, and heating Not very hard [facility] Do you feel stress - tense, restless, nervous, or anxious, or unable to sleep at night because your mind is troubled all the time - these days [OSQ] Rather much [facility] Start: 02-21-2024 Tobacco Comment 02/2024 - down to 5 or 6 per day [facility] Start: 12-09-2013 Sex Female (finding) [facility] NEGATED: Highlighted row [facility] Medical Equipment Procedure Code Equipment Code Equipment Original Text Equipment Identifier Dates [id number], [id number], [id number], [id number] Start: 05-22-2022 End: 07-29-2023 Comment on above: Test blood sugar(s) 4 times daily. Dx: Type 2 DM - Controlled E11.9 Insulin: No Test blood sugar(s) 4 times daily. Goals Date Patient Goal Desired Activity /State Functional Status Date Assessment Result Facility 01-04-2024 Functional Status Independent [facility] 01-04-2024 Functional Status Ambulation in [facility] 07-14-2023 Functional Status Standard Safet y ID band on, Allergy Band on, Call device within reach, Bed in low position, Wheels locked, Upper/Half-Length side-rails up, Bedside Cart Locked, Safety level maintained [facility] 01-11-2023 Functional Status Independent [facility] 10-26-2014 Are you deaf, or do you have serious difficulty hearing Yes 10/26/2014 12:38 PM Katie Gibbons MA Yes [facility] 10-26-2014 Are you blind, or do you have serious difficulty seeing, even when wearing glasses No 10/26/2014 12:38 PM Katie Gibbons MA No [facility] 10-26-2014 Do you have serious difficulty walking or climbing stairs No 10/26/2014 12:38 PM Katie Gibbons MA No [facility] 10-26-2014 Do you have difficul ty dressing or bathing No 10/26/2014 12:38 PM Katie Gibbons MA No [facility] 10-26-2014 Because of a physica l, mental, or emotional condition, do you have difficulty doing errands alone such as visiting a physician's office or shopping No 10/26/2014 12:38 PM Katie Gibbons MA No [facility] Mental Status Date Assessment Result Facility 01-04-2024 Mental Status Orientation Oriented x 4 [facility] 01-04-2024 Mental Status [facility] 07-14-2023 Mental Status Orientation Oriented x 4 [facility] 05-03-2023 Cognitive function Voice/Name [facility] Work Phone: 05-03-2023 Cognitive function Patient Fernanda antoine Person;Place;Time [facility] Work Phone: 02-15-2023 Cognitive function Voice/Name [facility] Work Phone: 01-11-2023 Mental Status Oriented x 4 [facility] 01-04-2023 Cognitive function Voice/Name [facility] Work Phone: 08-03-2022 Cognitive function Voice/Name [facility] Work Phone: 10-26-2014 Because of a physica l, mental, or emotional condition, do you have serious difficulty concentrating, remembering, or making decisions No 10/26/2014 12:38 PM EDT Katie Moon MA No [facility] Clinical Notes 02-23-2018 to 12-26-2024 Patient Caryn Omer APRN.[facility] - 12/25/2024 3:10 PM EDTSYolanda kim APRN.TAX REVENUE OFFICER - 12/24/2024 3:02 PM EDTTelephone Encounter - Hope Dickey LPN - 11/21/2024 1:10 PM EDT Note Date & Type Note Facility 12-26-2024 Note [facility] 12-26-2024 Note [facility] 12-25-2024 Instructions Caryn Lowery APRN.TAX REVENUE OFFICER - 12/25/2024 3:20 PM EDT - Continue taking doxycycline as prescribed. - Begin cephalexin four times daily along with your doxycycline. - You received a Toradol injection today for pain relief. - Apply warm compresses to the affected breast several times a day. - Change the dressing daily using a dry sterile 4x4 pad secured with tape. - Attend your general surgery appointment tomorrow at 2:[address] Yo for further evaluation and likely drainage. documented in this encounter [facility] 12-25-2024 Note [facility] 12-25-2024 History of Present illness Narrative CC: Patient presents with: Recheck: ER follow up, Breast abcess HPI Darren Reinoso is a 44 year old female who presents today for breast abscess follow up. Was seen in office 3 days ago on Wednesday and since then was in [facility] ER on Wednesday, urgent care on Wednesday and then [facility] last night. Recording using [employer] software for draft documentation of the visit was discussed with the patient/authorized representative personal service; all questions welcomed and answered. Patient/authorized representative personal service agreed to proceed Breast Infection: - Initial visit on Wednesday; started on doxycycline. - Marked area of infection; noted to have spread beyond the marked area. - Visited [facility] ER on Wednesday when patient noticed the redness extending beyond boundaries; per patient, no treatment provided and no new medications started. - Visited [facility] last night; additional antibiotic (cephalexin) prescribed, 4 times a day in addition to doxycyline already taking. - Incision made in ER, but minimal drainage noted. WBC greater then 12 in ER - Severe pain, rated 9/10; received non-narcotic pain medication in ER. - No fever or chills, but reports feeling hot, fatigued, miserable, and unable to wear a bra. - Using warm compresses; no significant improvement since starting cephalexin but does not think redness is worsening. - Appointment with general surgery scheduled for tomorrow at 14:15. REVIEW OF SYSTEMS Respiratory: no cough, no wheezing, no shortness of breath, no hemoptysis Cardiovascular: no chest pain, no chest pressure, no palpitations, and no swelling PAST MEDICAL HISTORY[1] PAST SURGICAL HISTORY Procedure [...] N-Acetaminophen], Propoxyphene, and Sulfa (Sulfonamide Antibiotics) MEDICATIONS dfbqitqn-iefjjsgrn-rytdidvdgjsjht (CORTISPORIN) 3.5-10,000-1 mg/mL-unit/mL-% otic suspension^Use 4 drops in both ears three times a day for 7 days.^Disp: 10 mL^Rfl: 0 doxycycline monohydrate 100 mg tablet^Take 1 tablet by mouth two times a day for 7 days.^Disp: 14 tablet^Rfl: 0 ondansetron orally disintegrating (ZOFRAN ODT) 4 mg disintegrating tablet^Take 1 tablet by mouth every 6 hours as needed for nausea/vomiting.^Disp: 15 tablet^Rfl: 1 furosemide (LASIX) 40 mg tablet^Take 1 tablet by mouth once daily.^Disp: 30 tablet^Rfl: 5 dulaglutide (TRULICITY) 1.5 mg/0.5 mL pen injector^Inject 1.5 mg subcutaneously one time a week. Inject dose once per week. Discard Pen After^Disp: 2 mL^Rfl: 2 albuterol HFA (VENTOLIN HFA) 90 mcg/actuation inhaler^Inhale 2 puffs as instructed every 4 hours as needed for wheezing/shortness of breath.^Disp: 18 g^Rfl: 2 mometasone-formoterol (DULERA) 200-5 mcg/actuation inhaler^Inhale 2 puffs as instructed two times a day.^Disp: 13 g^Rfl: 5 omeprazole (PRILOSEC) 40 mg capsule^TAKE 1 CAPSULE BY MOUTH DAILY 1/2 HOUR BEFORE BREAKFAST^Disp: 30 capsule^Rfl: 5 montelukast (SINGULAIR) 10 mg tablet^Take 1 tablet by mouth daily at bedtime.^Disp: 30 tablet^Rfl: 5 levothyroxine (SYNTHROID) 50 mcg tablet^TAKE 1 TABLET BY MOUTH DAILY TAKE ON EMPTY STOMACH. FOR THYROID^Disp: 30 tablet^Rfl: 5 mupirocin (BACTROBAN) 2 % ointment^Apply 1 application to affected area three times a day.^Disp: 15 g^Rfl: 0 fluticasone-salmeterol HFA (ADVAIR HFA) 115-21 mcg/actuation inhaler^Inhale 2 Puffs as instructed two times a day.^Disp: 1 Each^Rfl: 5 flash glucose sensor (FREESTYLE ANA PAULA 2 SENSOR) kit^USE TO CHECK BLOOD SUGAR DAILY^Disp: 2 Each^Rfl: 3 famotidine (PEPCID) 20 mg tablet^Take 1 tablet by mouth daily at bedtime.^Disp: 90 tablet^Rfl: 3 potassium chloride (K-TAB) 10 mEq tablet^Take 1 tablet by mouth daily with breakfast. Take with lasix^Disp: 90 tablet^Rfl: 3 cetirizine (ZYRTEC) 10 mg tablet^Take 1 tablet by mouth once daily.^Disp: 90 tablet^Rfl: 3 metoprolol tartrate, short acting, (LOPRESSOR) 25 mg tablet^Take 1 tablet by mouth two times a day.^Disp: 180 tablet^Rfl: 3 ibuprofen (MOTRIN) 600 mg tablet^Take 1 tablet by mouth every 8 hours as needed for pain.^Disp: 20 tablet^Rfl: 0 Nebulizer Accessories kit^1 Each every 4 hours as needed (wheezing or shortness of breath).^Disp: 1 Kit^Rfl: 11 albuterol (PROVENTIL) 2.5 mg /3 mL (0.083 %) nebulizer solution^Use 3 mL via nebulizer every 4 hours as needed for wheezing/shortness of breath. Use over 5-15minutes.^Disp: 90 mL^Rfl: 3 Blood Pressure Monitor^1 Each as directed. Dispense with Extra Large Cuff^Disp: 1 Kit^Rfl: 0 Blood Pressure Kit-Extra Large kit^1 Each once daily.^Disp: 1 Each^Rfl: 1 lancets (UNILET SUPER THIN LANCETS) 30 gauge^Test blood sugar(s) 4 times daily.^Disp: 100 Each^Rfl: 11 blood sugar diagnostic (TRUE METRIX GLUCOSE TEST STRIP) test strip^Test blood sugar(s) 4 times daily.^Disp: 50 Strip^Rfl: 11 diclofenac (VOLTAREN) 1 % topical gel^Apply 2 g to affected area twice daily as needed.^Disp: 50 g^Rfl: 5 TRUE METRIX GLUCOSE METER^test blood sugar DIRECTED^Disp: ^Rfl: lamoTRIgine (LAMICTAL) 200 mg tablet^Take 200 mg by mouth daily at bedtime.^Disp: ^Rfl: glucose 4 gram chewable tablet^Take 3-4 tablets for hypoglycemia. Recheck blood sugar in 15 min after dose^Disp: 30 tablet^Rfl: 0 flash glucose scanning reader (AeroDron ANA PAULA 2 READER)^1 Each once daily.^Disp: 1 Each^Rfl: 0 lidocaine (ANECREAM5) crea^Apply to affected area as needed.^Disp: 28 g^Rfl: 1 ipratropium-albuterol (DUONEB) 0.5 mg-3 mg(2.5 mg base)/3 mL nebu^INHALE 3 ML INSTRUCTED EVERY 4 HOURS NEEDED^Disp: 180 mL^Rfl: 2 FAMILY HISTORY[2] SOCIAL HISTORY[3] PHYSICAL EXAM BP 130/78 Pulse 102 Temp 36.7 C (98.1 F) (Temporal) Resp 16 LMP 05/19/2024 (Exact Date) SpO2 96% General Appearance:ill and tired appearing, in no acute distress, alert Skin: left breast increased in size, redness with increased warmth extending to axillary region. New boundary marked. Incision from ER open and small amount of bleeding. Surrounding area violaceous firm, warm, and very tender. Lungs: Lungs clear to auscultation. No wheezing, rhonchi, rales. Heart: RRR without murmur, gallop, or rubs. No ectopy Health maintenance reviewed with patient: Depression Screening Never done Cervical Cancer Screening due on 08/23/2013 Mammogram Screening Never done Colorectal Cancer Screening due on 04/16/2025 DTaP,Tdap,Td Vaccine(2 - Td or Tdap) due on 07/27/2025 Hepatitis B Vaccine(1 of 3 - 19+ 3-dose series) due on 07/27/2025 Influenza Vaccine(1) due on 01/15/2025 HbA1C due on 06/24/2025 LDL Cholesterol due on 10/11/2025 Annual PCP Team Chronic Disease Visit due on 12/22/2025 HIV Screening Completed Pneumococcal Vaccine Completed Urine Albumin:Creatinine Ratio Discontinued Dilated Retinal Exam Discontinued Diabetic Foot Exam Discontinued Hepatitis C Screening Discontinued DATA REVIEWED: Outside chart from [facility] reviewed. Assessment/Plan 1. Abscess (L02.91) 2. Wound pain (T14.8XXA) - Acute breast abscess with worsening erythema and swelling since initial evaluation on Wednesday; minimal drainage after ER incision. - Doxycycline started Wednesday; cephalexin added in ER; no further progression of erythema since last night. - Administer Toradol injection for pain management. - Advised continuation of warm compresses multiple times daily. - General surgery follow-up scheduled for tomorrow at 2:[address] Yo. Tried to get earlier appointment but unable to do so. Even tried to get appointment with [facility] for earlier evaluation but unable. Vitals stable and no signs of septicemia with white count last night between 12 and 13, respirations stable, and afebrile at this time. Patient to go to Er for any further redness, fever, or new/worsening symptoms as I feel IV antibiotics are warranted if no improvement in 24 hours with the 2 antibiotics that were just started. Prescription instructions reviewed with patient as applicable. Potential red flag symptoms discussed with the patient. Reviewed appropriate action plan to take if red flag symptoms occur. Patient agreeable to treatment plan. Caryn Lowery, LILI.TAX REVENUE OFFICER [1] Past Medical History: No date: Adjustment [...] Age of Onset: (Not Specified) Problem: other (SC) Relation: Paternal Aunt Age of Onset: (Not [...] past 10 yrs. documented in this encounter [facility] 12-24-2024 Note [facility] 12-24-2024 History of Present illness Narrative Images from the original note were not included. [facility] Darren Reinoso is a 44 year old female. [...] N-Acetaminophen], Propoxyphene, and Sulfa (Sulfonamide Antibiotics) MEDICATIONS rwoyyzwg-ipajgsekl-imznsgmibpdcqa (CORTISPORIN) 3.5-10,000-1 mg/mL-unit/mL-% otic suspension Use 4 [...] min after dose flash glucose scanning reader (SportcutSTYLE ANA PAULA 2 READER) 1 Each once [...] 2:[address] Gary in the [place] office for further evaluation. - Advised to seek emergency care if fever or tachycardia develops, or if condition worsens prior to scheduled surgery consult. - Instructed to follow up with primary care provider as scheduled on Wednesday at 2:45 PM at scheduled. and Recording using ambient [employer] software for draft documentation of the visit was discussed with the patient/authorized representative personal service; all questions welcomed and answered. Patient/authorized representative personal service agreed to proceed Differential Diagnoses - abscess [...] Age of Onset: (Not Specified) Problem: other (SC) Relation: Paternal Aunt Age of Onset: (Not [...] past 10 yrs. documented in this encounter [facility] 12-23-2024 Hospital Discharge instructions Patient Education 12/23/2024 [...] or higher after 2 days on antibiotics [phone] [employer]. [address] [place] [address], [place] [address]. All rights reserved. This information is not intended as a substitute for professional medical care. Always follow your healthcare professional's instructions. Follow Up Care 12/23/2024 17:28:37 With:BABAR PHILLIP MD Address: [address] [place] [address]- When:2-4 days [facility] Evelia Kelly 12-23-2024 Note Discharge Instructions Thank you for allowing [facility] to assist you with your healthcare needs. The following is important discharge information regarding your hospital visit. Diagnosis from Today's Visit Cellulitis What to Do Next Instructions from Your Care Team No qualifying data available. Post Acute Orders No qualifying data available. You Need to Schedule the Following Appointments Follow Up with BABAR PHILLIP MD When:Within 2-4 days Where:[address] [place] [address]- Allergies amoxicillin codeine penicillin sulfa drugs [...] or higher after 2 days on antibiotics [phone] [employer]. [address] [place] [address], [place] [address]. All rights reserved. This information is not intended as a substitute for professional medical care. Always follow your healthcare professional's instructions. Additional Information VACCINATE! IT SAVES LIVES! Members of the community who have not yet received the COVID-19 vaccine and would like to receive it can visit one of [facility] vaccine clinics. There are many vaccine clinic locations within the [facility]. For locations and available times, please visit [email or web address] It is important to note that some COVID mobile vaccine clinics are held outdoors and may be canceled in rainy or stormy conditions. To learn more about pediatric vaccinations (ages 5-11), we invite you to visit the [facility] webpage. [email or web address] To learn more about the COVID-19 vaccine, we invite you to visit the CDC website for a list of frequently asked questions. https://www.cdc.gov/coronavirus/2 019-ncov/vaccines/faq.html [facility] Patient Portal Access Instructions: Stay connected with your healthcare team and access your personal medical information anytime with the [facility] Patient Portal. If you would like a full copy of your medical records please contact the [facility] Medical Records Department Wednesday through Wednesday between 8a.m. and 4:30p.m. Please follow the directions below to access the portal: 1.Access the email account you provided upon registration to the hospital.2.Look for an invitation email from [facility].3.Open the email and access the invitation link: Accept Invitation to [facility].Fill in the required brewster to create your account. Sign into [email or web address] with your username and password that you [...] you will allow to register on the [facility] Patient Portal for access to your information. You can also access the [facility] Patient Portal on the [employer] dominguez. Simply click on Health Records under Health Data and then click on the adFreeq logo. HOW TO SAFELY DISPOSE OF PRESCRIPTION [...] Call your local pharmacy or go to [email or web address] to find one close to you.3.Make use of household items: Use cat litter or old coffee grounds to dispose medications if other options are not available. Mix your drugs with these household products, seal them in an airtight container and throw it into the garbage. Call [facility]: [phone] to be sure your drugs can be [...] been reviewed and explained to me and IARLETH JODY L understand my current condition and have read and understand these discharge instructions. I have received a written copy of the plan/instructions. If I have questions, I am aware that I should contact my doctor. Patient/Outpatient Psychiatrist Signature: Date/Time: Relationship to Patient: ____ Witness Name/Signature: Date/Time: [facility] 12-22-2024 Note [facility] 12-21-2024 Note [facility] 11-21-2024 Telephone encounter Note The patient [...] Dickey LPN November 21, 2024 1:10 PM [facility] 11-21-2024 Miscellaneous Notes The patient has been [...] 2024 1:10 PM documented in this encounter [facility] 11-20-2024 Note [facility] 11-20-2024 History of Present illness Narrative [...] min after dose flash glucose scanning reader (AeroDron ANA PAULA 2 READER) 1 Each once [...] Problems Paternal Grandfather Cancer Paternal Aunt other (SC) Paternal Aunt Great aunt Colon Cancer No [...] Caryn Lowery APRN.CNP documented in this encounter [facility] 10-26-2024 Telephone encounter Note The patient has [...] week. Discard Pen After Tete Gonzalez RN [facility] 10-26-2024 Miscellaneous Notes The patient has been [...] Tete Gonzalez RN documented in this encounter [facility] 10-20-2024 Caryn Bates APRN.TAX REVENUE OFFICER - 10/20/2024 11:50 AM EDT - Stop the second antibiotic that is causing stomach upset; you have already finished the Z-Dakota. - Continue taking naproxen as prescribed for your pulled muscle pain. - Begin the prescribed prednisone taper (prescription sent to [place]) to reduce inflammation and help your breathing; [...] have new concerns. documented in this encounter [facility] 10-20-2024 Note [facility] 10-20-2024 History of Present illness Narrative CC: Patient presents with: Recheck: ER follow up HPI Darren Reinoso is a 44 year old female who presents today for Er follow up. Went to [facility] after having concerns of chest and shoulder pain with SOB cough and ill symptoms. Had elevated D-dimer as outpt. Sputum cx did show gram + bacteria so with symptoms did start treatment for possible pneumonia while waiting for other results. Recording using Audible Magic software for draft documentation of the visit was discussed with the patient/authorized representative personal service; all questions welcomed and answered. Patient/authorized representative personal service agreed to proceed Chest Pain and Shoulder [...] Problems Paternal Grandfather Cancer Paternal Aunt other (SC) Paternal Aunt Great aunt Colon Cancer No [...] Screening Discontinued DATA REVIEWED: Outside chart from [facility] reviewed. Assessment/Plan 1. Chest pain, unspecified type [...] controlled. The 10-year ASCVD risk score (Kehinde VILA, et al., 2019) is: 9.9% Values used [...] Patient agreeable to treatment plan. Caryn Lowery APRN.TAX REVENUE OFFICER documented in this encounter [facility] 10-17-2024 Instructions Charis Swan APRN.JACITNA - 10/17/2024 2:47 PM EDT We discussed [...] drainage. - Consider following up with your retail account specialist to discuss additional treatment options, including injectables. We discussed your lung nodules: - You have small lung nodules that were previously identified. These are common and often benign, but we monitor them to ensure there are no changes. - A recent CT scan was performed at [facility]. We are requesting the images and [...] the CT scan images and report from Lisa for her to review. Please reach out if you have any new or worsening symptoms or additional questions. documented in this encounter [facility] 10-17-2024 History of Present illness Narrative Images from the original note were not included. Pulmonary Medicine Patients name: Darren Reinoso PCP: Babar Phillip MD Recording using Audible Magic software for draft documentation of the visit was discussed with the patient/authorized representative personal service; all questions welcomed and answered. Patient/authorized representative personal service agreed to proceed CC: follow-up HPI: Darren Reinoso is a 44 year old female current smoker with PMH significant for serious obesity, anxiety, EAMON on CPAP, lung nodules, asthma, recurrent bronchitis and possible aspergillus infection. Pulm hx respiratory failure due to severe bronchiolitis from human metapneumovirus in 2018. Followed with pulm at [facility]. Previously treated ID for pulmonary aspergillus, [...] spray. Previously offered allergy shots but declined. DME:[facility] Supplemental O2 PRN PAST MEDICAL HISTORY Diagnosis [...] 3.55 FEF50/FIF50 0.51 90-100 FIVC (L) 2.44 OCN70-52 (L/sec) 1.75 1.60 2.77 4.22 63 Time [...] but declined. May want to discuss with retail account specialist again if symptoms not managed with oral [...] edited and updated as necessary. Charis Swan APRN.JACINTA I spent a total of 46 minutes on the date of the service which included preparing to see the patient, lpra-us-vkxn patient care, completing clinical documentation, performing a medically appropriate examination, counseling and educating the patient/family/caregiver, and ordering medications, tests, or procedures. documented in this encounter [facility] 10-17-2024 Note [facility] 10-15-2024 Hospital Discharge instructions Patient Education [...] care provider or pharmacist before using an jsdw-zze-ttnlpaz cough medicine. You may use acetaminophen or [...] as directed by your health care provider [phone] [employer]. [address] [place] [address], [place] [address]. All rights reserved. This information is not intended as a substitute for professional medical care. Always follow your healthcare professional's instructions. Follow Up Care 10/14/2024 23:31:39 With:BABAR PHILLIP MD Address: [address] [place] [address] [id number] When:2-4 days [facility] 10-15-2024 Note Discharge Instructions Thank you for allowing [facility] to assist you with your healthcare needs. The following is important discharge information regarding your hospital visit. What to Do Next Instructions from Your Care Team No qualifying data available. Post Acute Orders No qualifying data available. You Need to Schedule the Following Appointments Follow Up with BABAR PHILLIP MD When:Within 2-4 days Where:[address] [place] [address] [id number]- Allergies amoxicillin codeine penicillin sulfa drugs Medications [...] care provider or pharmacist before using an vswq-neh-azalpqc cough medicine. You may use acetaminophen or [...] as directed by your health care provider [phone] [employer]. [address] [place] [address]. All rights reserved. This information is not intended as a substitute for professional medical care. Always follow your healthcare professional's instructions. Additional Information VACCINATE! IT SAVES LIVES! Members of the community who have not yet received the COVID-19 vaccine and would like to receive it can visit one of [facility] vaccine clinics. There are many vaccine clinic locations within the [facility]. For locations and available times, please visit [email or web address] It is important to note that some COVID mobile vaccine clinics are held outdoors and may be canceled in rainy or stormy conditions. To learn more about pediatric vaccinations (ages 5-11), we invite you to visit the [facility] webpage. [email or web address]-[email or web address]-[email or web address].html To learn more about the COVID-19 vaccine, we invite you to visit the CDC website for a list of frequently asked questions. https://www.cdc.gov/coronavirus/2 019-ncov/vaccines/faq.html [facility] Access Instructions: Stay connected with your healthcare team and access your personal medical information anytime with the [facility] Portal. If you would like a full copy of your medical records please contact the [facility] Medical Records Department Wednesday through Wednesday between 8a.m. and 4:30p.m. Please follow the directions below to access the portal: 1.Access the email account you provided upon registration to the [facility].2.Look for an invitation email from [facility].3.Open the email and access the invitation link: Accept Invitation to [facility]4.Fill in the required brewster to create your [...] you will allow to register on the [facility] Patient Portal for access to your information. You can also access the [facility] Patient Portal on the [employer]. Simply click on Health Records under Health Data and then click on the [facility] logo. [...] Call your local pharmacy or go to [email or web address] to find one close to you.3.Make use of household items: Use cat litter or old coffee grounds to dispose medications if other options are not available. Mix your drugs with these household products, seal them in an airtight container and throw it into the garbage. Call [facility]: [phone] to be sure your drugs can be [...] aware that I should contact my doctor. Patient/Outpatient Psychiatrist Signature: Date/Time: Relationship to Patient: ____ Witness Name/Signature: Date/Time: [facility] 10-15-2024 Note Exam Date Time Procedure Performing Provider Status 10/15/24 1:[address] Angiography Chest w/ Contrast ERVIN SMILEY MD; Auth (Verified) [id number] ORIGINAL EXAMINATION: CTA OF THE CHEST 10/15/2024 [...] 10/15/2024 1:14:40 AM Ordering Provider: DAVID NGUYEN [facility]05-31-2025 Note* Exam Date Time Procedure Performing Provider Status 10/14/24 11:51 PM EKG [ED AO] - CV DAVID NGUYEN MD ; Auth (Verified) ECG Final Report Sinus rhythm Electronic Signature: DAVID NGUYEN MD 10/15/2024 00:17:35 [facility]05-30-2025 Telephone encounter Note* Telephone Encounter - Katie Moon MA - 10/13/2024 3:45 PM EDT Patient notified. [facility]05-30-2025 Miscellaneous Notes* Telephone Encounter - Katie Moon [...] as well Thank you Caryn Lowery APRN.CNP * Telephone [...] you Caryn Lowery APRN.CNP documented in this encounterSumma Health [facility] Telephone encounter Note * Telephone Encounter - Caryn Lowery APRN.CNP - 10/13/2024 3:38 PM EDT Preliminary results show gram positive bacteria. I am going to go ahead and treat her for possible respiratory infection with augmentin and zpack. As this can cause a yeast infection I am sending in diflucan as well Thank you Caryn Lowery APRN.CNP [facility]05-29-2025 Telephone encounter Note* Telephone Encounter - Katie Moon MA - 10/12/2024 11:36 AM EDT Tried calling patient, phone lines was static and unable to hear patient. Will call back once linesare working. [facility]05-29-2025 Telephone encounter Note* Telephone Encounter - Caryn [...] up appointment. Thank you Caryn Lowery APRN.JACINTA [facility]05-29-2025 Telephone encounter Note* Telephone Encounter - Kelli Rizo - 10/12/2024 9:11 AM EDT Spoke with patient and scheduled 10 business days out as patient has Medicaid replacement and requires 10 business days for authorization. Please advise. [facility]05-29-2025 [facility] History of Present illness Narrative* Caryn Lowery APRN.CNP - 10/12/2024 7:41 AM EDT CC: Patient presents with: Recheck: Follow up headaches, B/L shoulder pain, back pain HPI Darren Reinoso is a 44 year old female who presents today for multiple concerns and complaints. Recording using Audible Magic software for draft documentation of the visit was discussed with the patient/authorized representative personal service; all questions welcomed and answered. Patient/authorized representative personal service agreed to proceed Chest Pressure and Dyspnea: [...] by mouth once daily. flash glucose sensor (SportcutSTYLE ANA PAULA 2 SENSOR) kit USE TO [...] min after dose flash glucose scanning reader (SportcutSTYLE ANA PAULA 2 READER) 1 Each once [...] Problems Paternal Grandfather Cancer Paternal Aunt other (SC) Paternal Aunt Great aunt Colon Cancer No [...] 08/23/2013 Mammogram Screening Never done Covid-19 Vaccine( - season) due on 02/01/2025 Colorectal Cancer Screening [...] plan. Caryn Lowery APRN.CNP documented in this encounterSumma [facility] Telephone encounter Note * Telephone Encounter - Caryn Lowery APRN.CNP - 10/11/2024 7:36 PM EDT D-dimer elevated. Ct of the chest ordered Thank you Caryn Lowery APRN.CNP [facility]05-28-2025 History of Present illness Narrative* Ana Gunderson [...] PATIENT PRESENTS WITH AN IMPLANTABLE OR ATTACHED APPLIANCE ADJUSTER: No RADIOLOGY DEPARTMENT: General X-ray: Exam(s) Completed: Chest X-Ray PERIPHERAL IV DATA: Not applicable SIGNED BY: RT Luis(R) October 11, 2024 12:13 PM documented in this encounterSumma Health W[facility]05-28-2025 NoteC[facility] NoteC[facility]03-13-[facility] History of Present illness Narrative* Caryn Lowery APRN.TAX REVENUE OFFICER - 07/27/2024 1:07 PM EDT CC: Patient [...] Large kit 1 Each once daily. lancets (CogniFitET SUPER THIN LANCETS) 30 gauge Test blood [...] Problems Paternal Grandfather Cancer Paternal Aunt other (SC) Paternal Aunt Great aunt Colon Cancer No [...] plan. Caryn Lowery APRN.CNP documented in this encounterSumma Health W[facility]02-27-2025 History of Present illness Narrative* Meggan Barrow [...] PATIENT PRESENTS WITH AN IMPLANTABLE OR ATTACHED APPLIANCE ADJUSTER: No RADIOLOGY DEPARTMENT: General X-ray: Exam(s) Completed: Chest X-Ray PERIPHERAL IV DATA: Not applicable SIGNED BY: RT Fermin(R) July 13, 2024 4:28 PM documented in this encounterSumma Health W[facility]02-27-2025 NoteC[facility]-27-20[facility] NoteC[facility]02-27-[facility] History of Present illness Narrative* Janie Vinson APRN.TAX REVENUE OFFICER - 07/13/2024 4:12 PM EST CC: Patient [...] min after dose flash glucose scanning reader (SportcutSTDolphin Geeks ANA PAULA 2 READER) 1 Each once [...] Problems Paternal Grandfather Cancer Paternal Aunt other (SC) Paternal Aunt Great aunt Colon Cancer No [...] spine. IMPRESSION IMPRESSION: No acute radiographic abnormality. Wood Die Maker: SARWAT Transcribe Date/Time: Jul 13 2024 4:42P [...] Patient agreeable to treatment plan. Janie Vinson APRN.TAX REVENUE OFFICER documented in this encounterSumma Health W[facility]02-14-2025 NoteC[facility]02-14-[facility] History of Present illness Narrative* Older, Caryn, LILI.TAX REVENUE OFFICER - 06/30/2024 1:15 PM EST CC: Patient [...] min after dose flash glucose scanning reader (AeroDron ANA PAULA 2 READER) 1 Each once [...] Problems Paternal Grandfather Cancer Paternal Aunt other (SC) Paternal Aunt Great aunt Colon Cancer No [...] Tdap) due on 10/03/2022 Covid-19 Vaccine( - 2023-) due on 02/01/2025 Colorectal Cancer Screening due [...] plan. Caryn Lowery APRN.CNP documented in this encounterSumma Health W[facility]02-03-2025 Telephone encounter Note * Telephone Encounter - Shazia Acuña LPN - 06/19/2024 12:00 PM EST Images from the original note were not included. Elle Boone MD You1 minute ago (11:57 AM) Sent in [employer] [facility]02-03-2025 Miscellaneous Notes* Telephone Encounter - Shazia Acuña LPN - 06/19/2024 12:00 PM EST Images from the original note were not included. Elle Boone MD You1 minute ago (11:57 AM) Sent in [employer] * Addendum Note - Elle Boone MD - 06/19/2024 11:57 AM ESTAddended by: ELLE BOONE on: 06/19/2024 11:57 AM Modules accepted: Orders * Telephone Encounter - Shazia Acuña LPN - 06/19/2024 8:46 AM EST [place] pharmacy called and states the Advair has cardiovascular toxicity interactions with the Voriconazole that has been ordered by another physician. They are wondering if Symbicort or Dulera shouldbe sent as they don't have these interactions with the Voriconazole. Shazia Acuña LPN documented in this encounterSumma Health W[facility]02-03-2025 Note* Addendum Note - Elle Boone MD - 06/19/2024 11:57 AM ESTAddended by: ELLE BOONE on: 06/19/2024 11:57 AM Modules accepted: Orders [facility]02-03-2025 Telephone encounter Note* Telephone Encounter - Shazia Acuña LPN - 06/19/2024 8:46 AM EST [place] pharmacy called and states the Advair has cardiovascular toxicity interactions with the Voriconazole that has been ordered by another physician. They are wondering if Symbicort or Dulera shouldbe sent as they don't have these interactions with the Voriconazole. Shazia Acuña LPN [facility]01-31-2025 History of Present illness Narrative* Elle Boone MD - 06/16/2024 1:30 PM EST Images from the original note were not included. . [facility] [place] Note Patient name: Darren Reinoso PCP: Babar [...] local pulmonary and is being seen by ID, Dr. Mendoza. Her recent history is notable for [...] was started on Voriconazole by her local maintenance planner and referred to ID. By time she [...] Symbicort, just albuterol and her nebs. DME: [facility] DATA: PFT 2018: Spirometry shows no obstruction. [...] DATE OF EXAM: Feb 29 2024 2:25PM [facility] 0539 - CT CHEST W [...] Problems Paternal Grandfather Cancer Paternal Aunt other (SC) Paternal Aunt Great aunt Colon Cancer No [...] which included preparing to see the patient, wobh-fl-ianp patient care, completing clinical documentation, obtaining and/or reviewing separately obtained history, performing a medically appropriate examination, ordering medications, tests, or procedures, and independently interpreting results (not separately reported). Elle Boone MD [facility] [place] documented in this encounterSumma Health W[facility]01-31-2025 NoteC[facility]01-31-2025 NoteC[facility]01-31-2025 Procedure note* Viktoriya Woodward RPFT - [...] DATE: June 16, 2024 TIME: 1:12 PM [facility]01-31-2025 Procedure note* Viktoriya Woodward RPFT - 06/16/2024 [...] 2024 TIME: 1:12 PM documented in this encounterSumma Health Wad[facility] - [facility]01-31-2025 NoteC[facility]01-31-20[facility] History of Present illness Narrative* Viktoriya Woodward RPFT - 06/16/2024 1:05 PM EST PULM FUNCTION: Provider: Elle Boone MD Assisting Tech: Viktoriya Woodward RPFT Spirometry: 1 Exhaled Nitric Oxide: 1 documented in this encounterSumma Health Wadsworth - [facility] Center12-31-2024 Telephone encounter Note * Telephone Encounter - [...] by mouth once daily. Tete Gonzalez RN [facility]12-31-2024 Miscellaneous Notes* Telephone Encounter - Tete Gonzalez [...] by mouth once daily. Tete Gonzalez RN documented in this encounterSumma Health Wadsworth - [facility] Center12-13-2024 NoteC[facility]12-13-[facility] History of Present illness Narrative* Caryn Lowery APRN.TAX REVENUE OFFICER - 04/28/2024 11:27 AM EST CC: Patient [...] Has appointment to establish with pulmonology at [facility] next month. DIABETES MELLITUS: Ms. Reinoso denies [...] min after dose flash glucose scanning reader (SportcutSTYLE ANA PAULA 2 READER) 1 Each once [...] Problems Paternal Grandfather Cancer Paternal Aunt other (SC) Paternal Aunt Great aunt Colon Cancer No [...] long-term current use of insulin ([facility]) - ICD9: 250.00, ICD10: E11.9 - Controlled [...] plan. Caryn Lowery APRN.CNP documented in this encounterSumma Health Wad[facility]11-27-2024 Telephone encounter Note * Telephone Encounter - [...] [place] LPN April 12, 2024 3:25 PM [facility]11-27-2024 Miscellaneous Notes* Telephone Encounter - Shelia Houston [...] 12, 2024 3:25 PM documented in this encounterSumma Health Wad[facility] - [facility]11-20-2024 Telephone encounter Note * Telephone Encounter - Shazia Lee APRN.CNP - 04/05/2024 10:02 AM EST Wound culture reveals Few enterococcus faecalis Reached out and spoke with patient and states wound remains draining Its getting smaller Changing the dressing daily Continue taking the Doxycyline Wound care [facility] Work Phone: 1(723) 131-850611-20-2024 Miscellaneous Notes* Telephone Encounter - Shazia Lee APRN.CNP - 04/05/2024 10:02 AM EST Wound culture reveals Few enterococcus faecalis Reached out and spoke with patient and states wound remains draining Its getting smaller Changing the dressing daily Continue taking the Doxycyline Wound care documented in this encounterSumma Health Wadsworth - [facility] Center11-17-2024 Instructions* Patient Instructions* Victoria Nguyen APRN.CNP - [...] Discussed expected course of illness Victoria Nguyen APRN.TAX REVENUE OFFICER documented in this encounterSumma Health Wadsworth - [facility]itt[facility] Center11-17-2024 NoteC[facility]11-17-20[facility] History of Present illness Narrative* Victoria Nguyen APRN.JACINTA - 04/02/2024 1:55 PM EST Subjective HPI [...] min after dose flash glucose scanning reader (TowerMetriXYLE ANA PAULA 2 READER) 1 Each once [...] Problems Paternal Grandfather Cancer Paternal Aunt other (SC) Paternal Aunt Great aunt Colon Cancer No [...] illness Victoria Nguyen APRN.CNP documented in this encounterSumma Health Wadsworth - [facility] Center11-16-2024 Instructions* Patient Instructions* Victoria Nguyen APRN.CNP - [...] drainage after 3-4 days. documented in this encounterSumma Health Wadsworth - [facility]itt[facility] Center11-16-2024 NoteC[facility]11-16-[facility] History of Present illness Narrative* Victoria Nguyen APRN.JACINTA - 04/01/2024 4:06 PM EST Images from [...] min after dose flash glucose scanning reader (AeroDron ANA PAULA 2 READER) 1 Each once [...] Problems Paternal Grandfather Cancer Paternal Aunt other (SC) Paternal Aunt Great aunt Colon Cancer No [...] Discussed expected course of illness Victoria Nguyen APRN.TAX REVENUE OFFICER documented in this encounterSumma Health Wadsworth - [facility] Center11-15-2024 NoteC[facility]11-15-20[facility] History of Present illness Narrative* Janie Vinson APRN.JACINTA - 03/31/2024 2:44 PM EST Images from the original note were not included. Subjective Male with complaints of possible abscess on her right inner thigh. Patient says she has had them before. Patient says it started about 2 days ago. Denies any fever chills nausea vomiting at this time. The history is provided by the patient. No foreign language interpreter was used. Review of Systems Constitutional: Negative. Skin: Negative. Objective Physical Exam Constitutional: Appearance: Normal appearance. Pulmonary: Effort: Pulmonary effort is normal. Musculoskeletal: Legs: Comments: Centimeter by 2 cm firm area no induration noted no redness spreading. Public Health Engineer present Neurological: Mental Status: She is alert. [...] breath. Use over 5-15minutes. flash glucose sensor (SportcutSTYLE ANA PAULA 2 SENSOR) kit USE TO [...] Problems Paternal Grandfather Cancer Paternal Aunt other (SC) Paternal Aunt Great aunt Colon Cancer No [...] discussed with the Patient or Patient's Authorized Outpatient Psychiatrist. Asapplicable, any other physician, advance practice provider, medical student, or other health professional student that will be observing or involved in the sensitive examination for educational or training purposes was discussed with the Patient or Authorized Outpatient Psychiatrist. The Patient or Authorized Outpatient Psychiatrist has agreed to proceed with the sensitive examination. (Sensitive examination includes inspection and/or palpation of the breasts, pelvis, prostate and anorectal regions) aJnie Vinson APRN.JACINTA documented in this encounterSumma Health W[facility]11-01-2024 Telephone encounter Note * Telephone Encounter - [...] with breakfast. Take with inocencio Gonzalez RN [facility]11-01-2024 Miscellaneous Notes* Telephone Encounter - Tete Gonzalez [...] with inocencio Gonzalez RN documented in this encounterSumma Health Wadsworth - Rittman [facility] Center11-01-2024 [facility]11-01-[facility] History of Present illness Narrative* Caryn Lowery APRN.TAX REVENUE OFFICER - 03/17/2024 8:17 AM EDT CC: Patient presents with: Recheck: Follow up SOB HPI Darren Reinoso is a 44 year old female who presents today for follow up on respiratory concerns. Patient has had ongoing respiratory concerns for the past 2-3 months with no improvement with antibiotic treatment. Has history of asthma and currently sees [place] pul[facility]ology. With no improvement, sputum cultures were [...] Large kit 1 Each once daily. lancets (CogniFitET SUPER THIN LANCETS) 30 gauge Test blood [...] Problems Paternal Grandfather Cancer Paternal Aunt other (SC) Paternal Aunt Great aunt Colon Cancer No [...] plan. Caryn Lowery APRN.CNP documented in this encounterSumma Health Wadsworth - [facility]10-15-2024 History of Present illness Narrative* Eusebia Hsu [...] PATIENT PRESENTS WITH AN IMPLANTABLE OR ATTACHED APPLIANCE ADJUSTER: No ALLERGIES: Reviewed and unchanged CONTRAST ALLERGY: [...] 2024 TIME: 2:50 PM documented in this encounterSumma Health Wadsworth - [facility] Center10-15-2024 NoteC[facility]10-15-2024 Telephone encounter Note* Telephone Encounter - Babar Phillip MD - 02/29/2024 1:00 PM EDT I agree, once pulmonary is following with her for lung issues, I would advice that she direct all queries and concerns to them Babar Medeiros MD [facility]10-15-2024 Miscellaneous Notes* Telephone Encounter - Babar Phillip MD - 02/29/2024 1:00 PM EDT I agree, once pulmonary is following with her for lung issues, I would advice that she direct all queries and concerns to them Mala, Babar Phillip MD * Telephone Encounter - Silviano Root RN - 02/29/2024 11:32 AM EDT Faxed respiratory cx and blood results to [facility], per patient request. . Patient asking why she is being treated for aspergillus, when the blood cx is negative. [facility] is prescribing the medication. Patient will call them to ask them to look at the results again, and tell her if she should be taking the medication. documented in this encounterSumma Health Wadsworth - [facility]itt[facility] Center10-15-2024 Telephone encounter Note * Telephone Encounter - Silviano Root RN - 02/29/2024 11:32 AM EDT Faxed respiratory cx and blood results to [facility], per patient request. . Patient asking why she is being treated for aspergillus, when the blood cx is negative. [facility] is prescribing the medication. Patient will call them to ask them to look at the results again, and tell her if she should be taking the medication. [facility]10-14-2024 Telephone encounter Note* Telephone Encounter - Tarah Haider LPN - 02/28/2024 3:40 PM EDT Spoke with pt and information listed below given. Pt verbalizes understanding. Pt has an apt with infectious Disease on Wednesday03/01/24 at 2 PM. She was not certain what the doctors name was. Tarah Haider LPN [facility]10-14-2024 Miscellaneous Notes* Telephone Encounter - Tarah Haider LPN - 02/28/2024 3:40 PM EDT Spoke with pt and information listed below given. Pt verbalizes understanding. Pt has an apt with infectious Disease on Wednesday03/01/24 at 2 PM. She was not certain what the doctors name was. Tarah Haider LPN * Telephone Encounter - Caryn Lowery APRN.CNP - 02/28/2024 10:53 AM EDT This is an appropriate treatment medication. Is she seeing Infectious disease as ordered by the pulmonology group? Take care Caryn Lowery APRN.CNP * Telephone Encounter - Silviano Root RN - 02/28/2024 10:17 AM EDT Patient asking pcp to review and advise on recent lab results. 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 Reports she has been taking it for 2 days. Asking if this is the right medication? Please advise patient: [phone] documented in this encounterSumma Health Wadsworth [facility] Center10-14-2024 Telephone encounter Note * Telephone Encounter - Caryn Lowery APRN.CNP - 02/28/2024 10:53 AM EDT This is an appropriate treatment medication. Is she seeing Infectious disease as ordered by the pulmonology group? Take care Caryn Lowery APRN.CNP [facility]10-14-2024 Telephone encounter Note* Telephone Encounter - Silviano Root RN - 02/28/2024 10:17 AM EDT Patient asking pcp to review and advise on recent lab results. 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 Reports she has been taking it for 2 days. Asking if this is the right medication? Please advise patient: [phone] [facility]10-11-2024 Telephone encounter Note* Telephone Encounter - Marita Gonzalez RN - 02/25/2024 2:57 PM EDT Yas Valencia calls to request refill of Trulicity. Order currently says on hold from 02/21/2024. Notified [place]. Marita Gonzalez RN [facility]10-11-2024 Miscellaneous Notes* Telephone Encounter - Marita Gonzalez RN - 02/25/2024 2:57 PM EDT Yas Valencia calls to request refill of Trulicity. Order currently says on hold from 02/21/2024. Notified [place]. Marita Gonzalez RN documented in this encounterSumma Health Wadsworth - [facility]itt[facility] Center10-11-2024 Telephone encounter Note * Telephone Encounter - Chaparrita Paez RN - 02/25/2024 12:04 PM EDT Pt called and is notified of providers message and instructions. Pt voices understanding. She states she will be in today to get them done. Pt states she finally got in to see Pulmonary at [facility] today at 1015. She reports she was put on an antifungal for aspergillus, and has an order to see infectious disease. She said she is still waiting to get a call from them. Chaparrita Paez RN [facility]10-11-2024 Miscellaneous Notes* Telephone Encounter - Chaparrita Paez RN - 02/25/2024 12:04 PM EDT Pt called and is notified of providers message and instructions. Pt voices understanding. She states she will be in today to get them done. Pt states she finally got in to see Pulmonary at [facility] today at 1015. She reports she was put on an antifungal for aspergillus, and has an order to see infectious disease. She said she is still waiting to get a call from them. Chaparrita Paez RN * Telephone Encounter - Babar Phillip MD - 02/25/2024 11:14 AM EDT I have ordered labs for the patient. Please get that done Babar Olvera MD documented in this encounterSumma Health Wadsworth [facility] Center10-11-2024 Telephone encounter Note * Telephone Encounter - Babar Phillip MD - 02/25/2024 11:14 AM EDT I have ordered labs for the patient. Please get that done Babar Olvera MD [facility]10-11-2024 Telephone encounter Note* Telephone Encounter - Silviano Root RN - 02/25/2024 10:54 AM EDT Faxed respiratory culture results to [facility], per patient request. [facility]10-11-2024 Miscellaneous Notes* Telephone Encounter - Silviano Root RN - 02/25/2024 10:54 AM EDT Faxed respiratory culture results to [facility], per patient request. documented in this encounterSumma Health Wadsworth - [facility]ittman [facility] Center10-07-2024 NoteC[facility]10-07-2024 History of Present illness Narrative* Duran Blunt MD - 02/21/2024 2:31 PM EDT Duran Blunt MD Department of Orthopaedics Orthopaedics [address] [facility] [address] Dept: [phone] Dept February 21, 2024 CHIEF COMPLAINT: Established [...] min after dose flash glucose scanning reader (AeroDron ANA PAULA 2 READER) 1 Each once [...] anxiety) Duran Blunt MD documented in this encounterSumma Health Wadsworth - [facility]itt[facility] Center10-03-2024 NoteC[facility]10-03-2024 History of Present illness Narrative* Caryn Lowery APRN.TAX REVENUE OFFICER - 02/17/2024 1:48 PM EDT CC: Patient [...] continued to call her pulmonology group at [place] but not getting an appointment. Denies chest [...] min after dose flash glucose scanning reader (AeroDron ANA PAULA 2 READER) 1 Each once [...] Problems Paternal Grandfather Cancer Paternal Aunt other (SC) Paternal Aunt Great aunt Colon Cancer No [...] 05/31/2024 Influenza Vaccine(1) due on 11/13/2024 Covid-19 Vaccine(1 - season) due on 02/01/2025 HbA1C due [...] - will get her in with new maintenance planner, refill prednisone and await other treatment until. [...] plan. Caryn Lowery APRN.CNP documented in this encounterSumma Health Wadsworth - [facility] Center10-02-2024 Telephone encounter Note * Telephone Encounter - [...] two times a day. Tete Gonzalez RN [facility]10-02-2024 Miscellaneous Notes* Telephone Encounter - Tete Gonzalez [...] day. Tete Gonzalez RN documented in this encounterSumma Health Wadsworth - [facility]ittman [facility] Center09-20-2024 History of Present illness Narrative* Ana Gunderson [...] PATIENT PRESENTS WITH AN IMPLANTABLE OR ATTACHED APPLIANCE ADJUSTER: No RADIOLOGY DEPARTMENT: General X-ray: Exam(s) Completed: Chest X-Ray PERIPHERAL IV DATA: Not applicable SIGNED BY: RT Luis(R) February 04, 2024 2:53 PM documented in this encounterSumma Health Wadsworth - [facility]itt[facility] Center09-20-2024 NoteC[facility]09-18-2024 NoteC[facility]09-18-2024 History of Present illness Narrative* Caryn Lowery APRN.JACINTA - 02/02/2024 12:25 PM EDT CC: Patient [...] started on prednisone and doxycycline by her maintenance planner that she sees for her asthma. Was 01/12 in office still feeling ill. Started on azithromycin and prednisone stopped due to anger issues. Was to follow up with pulmonology group but per patient was told they wanted her to see PCP for this and did not need to see her. Next seen 01/21/24still with symptoms so placed back on prednisone [...] min after dose flash glucose scanning reader (SportcutSTDolphin Geeks ANA PAULA 2 READER) 1 Each once [...] Problems Paternal Grandfather Cancer Paternal Aunt other (SC) Paternal Aunt Great aunt Colon Cancer No [...] Colorectal Cancer Screening due on 03/02/2022 Covid-19 Vaccine() Never done Influenza Vaccine(1) due on 01/16/2024 [...] plan. Caryn Lowery APRN.CNP documented in this encounterSumma Health Wadsworth - [facility]09-06-2024 History of Present illness Narrative* Ana Gunderson [...] PATIENT PRESENTS WITH AN IMPLANTABLE OR ATTACHED APPLIANCE ADJUSTER: No RADIOLOGY DEPARTMENT: General X-ray: Exam(s) Completed: Chest X-Ray PERIPHERAL IV DATA: Not applicable SIGNED BY: RT Luis(R) January 21, 2024 11:59 AM documented in this encounterSumma Health Wadsworth - [facility] Center09-06-2024 NoteC[facility]09-06-2024 NoteC[facility]09-06-2024 History of Present illness Narrative* Caryn Lowery APRN.TAX REVENUE OFFICER - 01/21/2024 11:04 AM EDT CC: Patient [...] my chart so went to ER at [facility] on 01/04/24. CT negative for PE, possibly start of infection showing nodular densities with lymphadenopathy. EKG and blood work including troponin without concern. Instructed to start treatment as ordered by Pulmonology. Has not seen her [place] pulmonology in a few months ut were [...] min after dose flash glucose scanning reader (AeroDron ANA PAULA 2 READER) 1 Each once [...] Problems Paternal Grandfather Cancer Paternal Aunt other (SC) Paternal Aunt Great aunt Colon Cancer No [...] Cancer Screening due on 03/02/2022 Covid-19 Vaccine( season) Never done Influenza Vaccine(1) due on [...] plan. Caryn Lowery APRN.CNP documented in this encounterSumma Health Wadsworth - [facility] Center09-04-2024 Telephone encounter Note * Telephone Encounter - Yuliana Goldstein MA - 01/19/2024 4:05 PM EDT Called and spoke with patient. Patient scheduled appointment with Dr. Blunt on Wednesday01/24/24. [facility]09-04-2024 Miscellaneous Notes* Telephone Encounter - Yuliana Goldstein [...] advise. Geena Nielsen LPN documented in this encounterSumma Health Wadsworth - Rittman [facility] Center09-04-2024 Telephone encounter Note * Telephone Encounter - Milly Arce LPN - 01/19/2024 8:55 AM EDT Patient notified, Darren had 3 days left of the medication but threw it out. Milly Arce LPN [facility]09-04-2024 Miscellaneous Notes* Telephone Encounter - Milly Arce [...] tell her to call us. Chaparrita Paez, ROD * Telephone Encounter - Babar Phillip MD - 01/11/2024 5:34 PM EDT This is an expected side effect of the medication Babar Medeiros MD * Telephone Encounter - Shira Chang LPN - 01/11/2024 2:03 PM EDT Pt states she was diagnosed with a lung infection by [facility] pulmonology, she is taking prednisone taper [...] pcp. Shira Chang LPN documented in this encounterSumma Health Wadsworth - [facility] Center09-03-2024 Telephone encounter Note * Telephone Encounter - [...] dueto pain. Please advise. Geena Nielsen LPN [facility]08-29-2024 NoteC[facility]08-29-2024 History of Present illness Narrative* Caryn Lowery APRN.TAX REVENUE OFFICER - 01/13/2024 11:23 AM EDT CC: Patient presents with: Recheck: ER follow up, lung infection HPI Darren Reinoso is a 44 year old female who presents today for ER follow-up. Was seen in office on 01/03/24 with right sided chest pain, feeling feverish,cough, wheezing, and SOB on exertion. D-dimer was positive which patient saw in my chart so went to ER at [facility] on 01/04/24. CT negative for PE, possibly start of infection showing nodular densities with lymphadenopathy. EKG and blood work including troponin without concern. Instructed to start treatment as ordered by Pulmonology. Has not seen her [place] pulmonology in a few months ut were [...] she is going to end up in skilled nursing due toprednisone. Her maintenance planner told her to continue her prednisone. Also [...] Large kit 1 Each once daily. lancets (CogniFitET SUPER THIN LANCETS) 30 gauge Test blood [...] min after dose flash glucose scanning reader (AeroDron ANA PAULA 2 READER) 1 Each once [...] Problems Paternal Grandfather Cancer Paternal Aunt other (SC) Paternal Aunt Great aunt Colon Cancer No [...] Screening due on 05/31/2024 Covid-19 Vaccine(1 - season) due on 05/31/2024 Pneumococcal Vaccine(2 [...] labs and imaging results. Outside chart from [facility] reviewed. ASSESSMENT/PLAN: 1. Shortness of breath - [...] psychiatry - Reviewed concept of neurochemical imbalance [facility] depression/anxiety, treatment options and benefits of counseling in combination with medication. Also reviewed benefits of sleep hygeine, diet and exercise - Instructed patient to contact office or [id number] after-hours promptly should condition worsen or any new symptoms appear. - Counseling Center [facility] and after hours crisis line 5. Elevated [...] plan. Caryn Lowery APRN.CNP documented in this encounterSumma Health Wadsworth - [facility] Center08-28-2024 Telephone encounter Note * Telephone Encounter - [...] her to call us. Chaparrita Paez RN [facility]08-27-2024 Telephone encounter Note* Telephone Encounter - Babar Phillip MD - 01/11/2024 5:34 PM EDT This is an expected side effect of the medication Babar Medeiros MD [facility]08-27-2024 Telephone encounter Note* Telephone Encounter - Shira Chang LPN - 01/11/2024 2:03 PM EDT Pt states she was diagnosed with a lung infection by [facility] pulmonology, she is taking prednisone taper [...] along to her pcp. Shira Chang LPN [facility]08-22-2024 Telephone encounter Note* Telephone Encounter - Caryn Lowery APRN.CNP - 01/06/2024 3:30 PM EDT ER records reviewed, possible start of infectious process. Please schedule ER follow up in 1 week. Thank you Caryn Lowery APRN.CNP [facility]08-22-2024 Miscellaneous Notes* Telephone Encounter - Caryn Lowery [...] Patient states she was seen in the [place] ER for chest pain and was given AIB and prednisone. States CT was done and was negative. I will requests records for review. * Telephone Encounter - Caryn Lowery APRN.CNP - 01/05/2024 7:38 AM EDT D-dimer is elevated. She needs a CT of the chest to further evaluate this. Other blood work in acceptable ranges. Thank you Caryn Lowery APRN.JACINTA documented in this encounterSumma Health Wadsworth - [facility] Center08-22-2024 Telephone encounter Note * Telephone Encounter - Katie Moon MA - 01/06/2024 1:19 PM EDT Records received and placed on provider desk for review. [facility]08-22-2024 Telephone encounter Note* Telephone Encounter - Marita [...] Gonzalez RN January 06, 2024 10:37 AM [facility]08-22-2024 Miscellaneous Notes* Telephone Encounter - Marita Gonzalez [...] 06, 2024 10:37 AM documented in this encounterSumma Health Wadsworth - [facility] Center08-21-2024 Telephone encounter Note * Telephone Encounter - Katie Moon MA - 01/05/2024 11:07 AM EDT Patient states she was seen in the [place] ER for chest pain and was given AIB and prednisone. States CT was done and was negative. I will requests records for review. [facility]08-21-2024 Telephone encounter Note* Telephone Encounter - Caryn Lowery APRN.CNP - 01/05/2024 7:38 AM EDT D-dimer is elevated. She needs a CT of the chest to further evaluate this. Other blood work in acceptable ranges. Thank you Caryn Lowery APRN.CNP [facility]08-20-2024 Hospital Discharge instructions Patient Education 01/04/2024 18:49:26 [...] or as directed by your healthcare provider [phone] [employer]. [address] [place] [address]. All rights reserved. This information is not intended as a substitute for professional medical care. Always follow yourhealthcare professional's instructions. Follow Up Care 01/04/2024 15:57:49 With:BABAR PHILLIP MD Address: [address] [facility] [facility] [place] [id number]- When:2-4 days [facility] 08-20-2024 Note Discharge Instructions Thank you for allowing [facility] to assist you with your healthcare needs. [...] BABAR PHILLIP MD When:Within 2-4 days Where:[address] [facility] [place] [id number]- Allergies amoxicillin codeine penicillin sulfa drugs Medications [...] or as directed by your healthcare provider [phone] [employer]. [address] [place] [address]. All rights reserved. This information is not intended as a substitute for professional medical care. Always follow yourhealthcare professional's instructions. Additional Information VACCINATE! IT SAVES LIVES! Members of the community who have not yet received the COVID-19 vaccine and would like to receive it can visit one of [facility] vaccine clinics. There are many vaccine clinic locations within the [facility]. For locations and available times, please visit [email or web address].[place].gov/. It is important to note that some COVID mobile vaccine clinics are held outdoors and may be canceled in rainy or stormy conditions. To learn more about pediatric vaccinations (ages 5-11), we invite you to visit the [facility] webpage. [email or web address]/[email or web address] stions.htmlTo learn more about the COVID-19 vaccine, we invite you to visit the CDC website for a list of frequently asked questions. https://www.cdc.gov/coronavirus/2019-ncov/vaccines/faq.html [facility] Patient Portal Access Instructions: Stay connected with your healthcare team and access your personal medical information anytime with the [facility] Patient Portal. If you would like a full copy of your medical records please contact the [facility] Medical Records Department Wednesday through Wednesday between 8a.m. and 4:30p.m. Please follow the directions below to access the portal: 1.Access the email account you provided upon registration to the hospital.2.Look for an invitation email from [facility].3.Open the email and access the invitation link: Accept Invitation to [facility]4.Fill in the required brewster to create your account. Sign into [email or web address] with your username and password that you [...] you will allow to register on the [facility] Patient Portal for access to your information. You can also access the [facility] Patient Portal on the [employer]. Simply click on Health Records under Shareable SocialData and then click on the adFreeq logo. HOW TO SAFELY DISPOSE OF PRESCRIPTION [...] Call your local pharmacy or go to http://bit.[place]/2Q2Ev9z to find one close to you.3.Make use of household items: Use cat litter or old coffee grounds to dispose medications if other options arenot available. Mix your drugs with these household products, seal them in an airtight container andthrow it into the garbage. Call [facility]: [phone] to be sure your drugs can be [...] been reviewed and explained to me and IARLETH JODY L understand my current condition and have read and understand these discharge instructions. I have received a written copy of the plan/instructions. If I have questions, I am aware that I should contact my suresh huber. Patient/Outpatient Psychiatrist Signature: Date/Time: Relationship to Patient: Witness Name/Signature: Date/Time: [facility]ia [id number] Note ORIGINAL EXAMINATION: CTA OF THE CHEST01/04/2024 [...] Sign Date: 01/04/2024 6:51:36 PM Ordering Provider: [facility]08-20-2024 Note Sinus rhythm Electronic Signature: CHELSIE MORALES MD 01/04/2024 16:57:[address] [place] [id number] 08-20-2024 Telephone encounter Note* Telephone Encounter - Babar Phillip MD - 01/04/2024 4:25 PM EDT Noted Regards, Babar Phillip MD [facility]08-20-2024 Miscellaneous Notes* Telephone Encounter - Babar Phillip MD - 01/04/2024 4:25 PM EDT Noted Regards, Babar Phillip MD * Telephone Encounter - Chaparrita Paez RN - 01/04/2024 3:36 PM EDT Pt called in and reports [facility] had a 4 hour wait and she was not going to wait that long. She was going to [facility]. Called and talked with Sujatha with [facility] and gave her the report Jignesh had previously. Will try to fax information to fax # [phone]. She reports they just installed the new fax machines, so they may or may not get the information. * Telephone Encounter - Silviano Root RN - 01/04/2024 2:20 PM EDT Spoke with patient. Patient reports she is feeling bad, and agreeable to go to [facility] ER. States she will be at [...] yesterday was normal. Patient contacted pulm at [facility], and this nurse faxed lab results to [facility] Pulm, attn: David Regalado Np, per patient request. Asking pcp to please advise patient. documented in this encounterSumma Health W[facility]08-20-2024 Telephone encounter Note * Telephone Encounter - Chaparrita Paez RN - 01/04/2024 3:36 PM EDT Pt called in and reports [facility] had a 4 hour wait and she was not going to wait that long. She was going to [facility]. Called and talked with Sujatha with [facility] and gave her the report Jignesh had previously. Will try to fax information to fax # [phone]. She reports they just installed the new fax machines, so they may or may not get the information. [facility]08-20-2024 Telephone encounter Note* Telephone Encounter - Silviano Root RN - 01/04/2024 2:20 PM EDT Spoke with patient. Patient reports she is feeling bad, and agreeable to go to [facility] ER. States she will be at ER in approx 35-45 min. This nurse phoned ER and given D- Dimer, CXR, EKG results, gave brief hx on patient. Advised patient is having symptoms of SOB, increased pain in chest to back with deep breath, and cough. [facility]08-20-2024 Telephone encounter Note* Telephone Encounter - Silviano [...] yesterday was normal. Patient contacted pulm at [facility], and this nurse faxed lab results to [facility] Pulm, attn: David Regalado Np, per patient request. Asking pcp to please advise patient. [facility]08-19-2024 History of Present illness Narrative* Brittney Trent, RT(R) - 01/03/2024 2:20 PM EDT Radiology [...] PATIENT PRESENTS WITH AN IMPLANTABLE OR ATTACHED APPLIANCE ADJUSTER: No RADIOLOGY DEPARTMENT: General X-ray: Exam(s) Completed: Chest X-Ray PERIPHERAL IV DATA: Not applicable SIGNED BY: RT Bob(R) January 03, 2024 2:22 PM documented in this encounterSumma Health Wadsworth [facility]08-19-2024 [facility] NoteC[facility] History of Present illness Narrative* Caryn Lowery APRN.TAX REVENUE OFFICER - 01/03/2024 1:12 PM EDT CC: Patient [...] min after dose flash glucose scanning reader (AeroDron ANA PAULA 2 READER) 1 Each once [...] Problems Paternal Grandfather Cancer Paternal Aunt other (SC) Paternal Aunt Great aunt Colon Cancer No [...] Cervical Cancer Screening due on 05/31/2024 Covid-19 Vaccine(2022- season) due on 05/31/2024 Pneumococcal Vaccine(2 of [...] per minute AXIS: Normal axis INTERVALS: Normal [place] interval QRS COMPLEX: Normal ST SEGMENT: Normal ST-T segments QT INTERVAL: Normal COMPARED WITH PRIOR: unchanged ASSESSMENT/PLAN: 1. Chest pain, unspecified type - ICD9: 786.50, ICD10: R07.9 (primary diagnosis) NO concerns on EKG, possibly result of celebrex but with SOB will check d-dimer and with possible when taking lasix, will check INFORMATION SYSTEMS SECURITY MANAGER. - stop celebrex Follow up in 2 [...] Patient agreeable to treatment plan. Caryn Lowery APRN.JACINTA documented in this encounterSumma Health Wad[facility]07-26-2024 Telephone encounter Note * Telephone Encounter - Silviano Root RN - 12/10/2023 11:57 AM EDT Patient reports she was prescribed amoxicillin for tooth infection in on 12-06-23, and has now developed a vaginal yeast infection- vaginal itching, burning, discharge. Asking Kilo Rubin, to send Rx for diflucan to [facility]. Pended previous Rx. [facility]07-26-2024 Miscellaneous Notes* Telephone Encounter - Silviano Root RN - 12/10/2023 11:57 AM EDT Patient reports she was prescribed amoxicillin for tooth infection in [facility] on 12-06-23, and has now developed a vaginal yeast infection- vaginal itching, burning, discharge. Asking Kilo Rubin, to send Rx for diflucan to [facility]. Pended previous Rx. documented in this encounterSumma Health W[facility]07-24-2024 Telephone encounter Note * Telephone Encounter - Caryn Lowery APRN.CNP - 12/08/2023 7:59 AM EDT Ok to continue this as long as abdominal pain and other symptoms are fully resolved. Thank you Caryn Lowery APRN.JACINTA [facility]07-24-2024 Miscellaneous Notes* Telephone Encounter - Caryn Lowery APRN.CNP - 12/08/2023 7:59 AM EDT Ok to continue this as long as abdominal pain and other symptoms are fully resolved. Thank you Caryn Lowery APRN.CNP * Telephone Encounter - Swati Uriostegui LPN [...] 1 capsule by mouth once daily. Swati Uriosteugi LPN December 07, 2023 4:07 PM documented in this encounterSumma Health Wad[facility]07-23-2024 Telephone encounter Note * Telephone Encounter - [...] Uriostegui LPN December 07, 2023 4:07 PM [facility]07-22-2024 History of Present illness Narrative* Steve Ramirez APRN.TAX REVENUE OFFICER - 12/06/2023 3:00 PM EDT Images from [...] min after dose flash glucose scanning reader (AeroDron ANA PAULA 2 READER) 1 Each once [...] Problems Paternal Grandfather Cancer Paternal Aunt other (SC) Paternal Aunt Great aunt Colon Cancer No [...] of care. This note was generated using PanelClaw software. It may contain errors in wording, punctuation, or spelling. Steve Ramirez APRN.JACINTA documented in this encounterSumma Health Wad[facility]07-22-2024 Telephone encounter Note * Telephone Encounter - [...] she will go to [facility] for evaluation. [facility]07-22-2024 Miscellaneous Notes* Telephone Encounter - Silviano Root [...] to [facility] for evaluation. documented in this encounterSumma Health Wad[facility] - [facility] Center07-19-2024 History of Present illness Narrative* Caryn Lowery APRN.JACINTA - 12/03/2023 1:53 PM EDT CC: Patient [...] appetite, fatigue, fever, and diarrhea. Skipped her trulicity shot last with no improvement. Took one antidiarrheal capsule and pe ptobismol without improvement. Diarrhea is liquid varying from black to netsuite developer brown with frothy mixture on top. Also [...] ago ate a burger and fries from [employer] which caused return of the pain vomiting [...] min after dose flash glucose scanning reader (AeroDron ANA PAULA 2 READER) 1 Each once [...] Problems Paternal Grandfather Cancer Paternal Aunt other (SC) Paternal Aunt Great aunt Colon Cancer No [...] plan. Caryn Lowery APRN.CNP documented in this encounterSumma Health W[facility]07-16-2024 Telephone encounter Note * Telephone Encounter - [...] Dickey LPN November 30, 2023 1:23 PM [facility]07-16-2024 Miscellaneous Notes* Telephone Encounter - Hope Dickey [...] 30, 2023 1:23 PM documented in this encounterSumma Health Wad[facility] - [facility]07-09-2024 Telephone encounter Note * Telephone Encounter - Linda Reyez APRN.CNP - 11/23/2023 9:56 AM EDT Ordered. [facility]07-09-2024 Miscellaneous Notes* Telephone Encounter - Linda Reyez APRN.CNP - 11/23/2023 9:56 AM EDT Ordered. * Telephone Encounter - Shelia Houston LPN - 11/23/2023 9:21 AM EDT Darren is requesting a lab draw to test for exposure to syphilis. Would like to complete labs today. No need to call back, she will check My Chart for orders. documented in this encounterSumma Health Wad[facility]07-09-2024 Telephone encounter Note * Telephone Encounter - Shelia Houston LPN - 11/23/2023 9:21 AM EDT Darren is requesting a lab draw to test for exposure to syphilis. Would like to complete labs today. No need to call back, she will check My Chart for orders. [facility]07-03-2024 Telephone encounter Note* Telephone Encounter - Katie Moon MA - 11/17/2023 10:55 AM EDT Patient scheduled and notified. [facility]07-03-2024 Miscellaneous Notes* Telephone Encounter - Katie Moon MA - 11/17/2023 10:55 AM EDT Patient scheduled and notified. * Telephone Encounter - Caryn Lowery APRN.CNP - 11/17/2023 8:[address] patient in a walkin spot on WednesdayDecember 02. Also urine is without infection. Thank you Caryn Lowery APRN.JACINTA * Telephone Encounter - Chaparrita Paez RN - 11/16/2023 11:40 AM EDT Pt called and is notified of providers results and instructions. Pt voices understanding. Let Pt know to call Dr Gary and get in with him. Pt states Caryn Lowery INFORMATION SYSTEMS SECURITY MANAGER wanted Pt to get in with her [...] droppedoff today. Please call and advise. Chaparrita Paez, RN * Telephone Encounter - Caryn Lowery [...] consult in case needed. Thank you Caryn oLwery APRN.CNP documented in this encounterSumma Health Wad[facility]07-03-2024 Telephone encounter Note * Telephone Encounter - Caryn Lowery APRN.CNP - 11/17/2023 8:[address] patient in a walkin spot on WednesdayDecember 02. Also urine is without infection. Thank you Caryn Lowery APRN.CNP [facility]07-02-2024 Note* Addendum Note - Celeste Eric - 11/16/2023 3:58 PM EDTAddended by: CELESTE ERIC on: 11/16/2023 03:58 PM Modules accepted: Orders [facility]07-02-2024 Miscellaneous Notes* Addendum Note - Celeste Eric - 11/16/2023 3:58 PM EDTAddended by: CELESTE ERIC on: 11/16/2023 03:58 PM Modules accepted: Orders documented in this encounterSumma Health W[facility]07-02-2024 Telephone encounter Note * Telephone Encounter - Chaparrita Paez, ROD - 11/16/2023 11:40 AM EDT Pt called and is notified of providers results and instructions. Pt voices understanding. Let Pt know to call Dr Gary and get in with him. Pt states Caryn Lowery INFORMATION SYSTEMS SECURITY MANAGER wanted Pt to get in with her in 2 weeks. Let Pt know that she didn't have any openings and Pt said she was supposed to look the day of her appointment, but must have gotten busy. Tried to put her in with Zeinab CHENG on 7/16/24, but Pt wants to check with Caryn. Pt also wanted to let provider know her stool samples were droppedoff today. Please call and advise. Chaparrita Paez, RN [facility]07-02-2024 Telephone encounter Note* Telephone Encounter - Caryn [...] case needed. Thank you Caryn Lowery APRN.CNP [facility]07-01-2024 History of Present illness Narrative* Caryn Lowery [...] Diarrhea is liquid varying from black to netsuite developer brown with frothy mixture on top. Also [...] 30 tablet^Rfl: 0 flash glucose scanning reader (AeroDron ANA PAULA 2 READER)^1 Each once daily.^Disp: [...] Problems Paternal Grandfather Cancer Paternal Aunt other (SC) Paternal Aunt Great aunt Colon Cancer No [...] Screening due on 05/31/2024 Covid-19 Vaccine(1 - 2022-24 season) due on 05/31/2024 Pneumococcal Vaccine(2 of [...] plan. Caryn Lowery APRN.CNP documented in this encounterSumma Health Wad[facility]06-17-2024 Telephone encounter Note * Telephone Encounter - [...] Uriostegui LPN November 01, 2023 2:01 PM [facility]06-17-2024 Miscellaneous Notes* Telephone Encounter - Swati Uriostegui [...] 01, 2023 2:01 PM documented in this encounterSumma Health Wadsworth - [facility] Center06-05-2024 History of Present illness Narrative* Caryn Lowery APRN.TAX REVENUE OFFICER - 10/20/2023 5:37 PM EDT CC: Patient presents with: Recheck: Follow up HPI Darren Reinoso is a 43 year old female who presents today for follow up. Was seen last week under great amount of stress with infidelity of skilled nursing boyfriend and other life concerns. Following with [...] 30 tablet^Rfl: 0 flash glucose scanning reader (AeroDron ANA PAULA 2 READER)^1 Each once daily.^Disp: [...] Problems Paternal Grandfather Cancer Paternal Aunt other (SC) Paternal Aunt Great aunt Colon Cancer No [...] Testing due on 05/31/2024 Covid-19 Vaccine( - 2022- season) due on 05/31/2024 Pneumococcal [...] - Instructed patient to contact office or nitbm-ha-vsno after-hours promptly should condition worsen or any new symptoms appear. - Counseling Center [facility] and after hours crisis line 2. STD [...] plan. Caryn Lowery APRN.CNP documented in this encounterSumma Health Wadsworth - [facility]05-29-2024 History of Present illness Narrative* Caryn Lowery [...] hurt herself. Also denies having access to [employer]. Alcohol use: does not drink any alcohol Drug use: No Appetite: good Started talking to her aunt who is reported as a clergy woman and trying to get everything figured out but had just found out the truth of her intermediate designer boyfriend in the past few days. Tried [...] 30 tablet^Rfl: 0 flash glucose scanning reader (AeroDron ANA PAULA 2 READER)^1 Each once daily.^Disp: [...] Problems Paternal Grandfather Cancer Paternal Aunt other (SC) Paternal Aunt Great aunt Colon Cancer No [...] I am also reaching out to Amina Johnson to update on my concerns with this patient. Voicemail left. - Reviewed concept of neurochemical imbalance wth depression/anxiety, treatment options and benefits of counseling in combination with medication. Also reviewed benefits of sleep hygeine, diet and exercise - Follow-up in 2 weeks or sooner as needed - Instructed patient to contact office or iviax-ip-hrpf after-hours promptly should condition worsen or any new symptoms appear. - Counseling Center [facility] and after hours crisis line 2. STD exposure - ICD9: V01.6, ICD10: Z20.2 - SYPHILIS TOTAL W/REFLEX - GONORRHEA/CHLAMYDIA NAAT - HIV 1/2 COMBO WITH REFLEX TO DIFFERENTIATION Prescription instructions reviewed with patient as applicable. Potential red flag symptoms discussed with the patient. Reviewed appropriate action plan to take if red flag symptoms occur. Patient agreeable to treatment plan Caryn Lowery APRN.CNP documented in this encounterSumma Health Wadsworth [facility]04-19-2024 Miscellaneous Notes* Telephone Encounter - Kelli Mendoza [...] you. Kelli Mendoza RN. documented in this encounterSumma Health Wadsworth - [facility]04-10-2024 Miscellaneous Notes* Telephone Encounter - Tete Gonzalez [...] 10. : no Protocols used: Eye - Myixybmi-LGYSE-PG, Ata-EIUPT-PZ documented in this encounterSumma Health Wadsworth - [facility] Center04-03-2024 Miscellaneous Notes* Telephone Encounter - Caryn Lowery [...] faxed. Marita Gonzalez RN documented in this encounterSumma Health Wadsworth - [facility]itt[facility] Center04-02-2024 Miscellaneous Notes* Telephone Encounter - Marita Gonzalez RN - 08/17/2023 3:18 PM EDT Patient returns call and reports [facility] would be fine. Orders and demographics faxed to [facility] per patient request. Marita Gonzalez, RN * Telephone Encounter - Tarah Haider LPN - 08/17/2023 3:01 PM EDT Left a message for pt to call the office to see where she would like the order for the large blood pressure dit to go to. [facility] can not provide. They can not bill for this. Asking pt if she would like this to go to [facility]. Tarah Haider LPN documented in this encounterSumma Health Wad[facility]03-26-2024 Miscellaneous Notes* Telephone Encounter - Hope Dickey [...] you. Hope Dickey LPN. documented in this encounterSumma Health Wadsworth - [facility] Center03-14-2024 Miscellaneous Notes* Telephone Encounter - Tarah Haider [...] you. Tarah Haider LPN. documented in this encounterSumma Health Wadsworth - [facility]02-29-2024 History of Present illness Narrative* Caryn Lowery APRN.TAX REVENUE OFFICER - 07/15/2023 2:06 PM EST CC: Patient [...] 30 tablet^Rfl: 0 flash glucose scanning reader (AeroDron ANA PAULA 2 READER)^1 Each once daily.^Disp: [...] Problems Paternal Grandfather Cancer Paternal Aunt other (SC) Paternal Aunt Great aunt Colon Cancer No [...] Patient agreeable to treatment plan. Caryn Lowery APRN.JACINTA documented in this encounterSumma Health Wadsworth - [facility]itt[facility] Center02-28-2024 Hospital Discharge instructions Patient Education 07/14/2023 18:40:28 [...] breathing or swallowing Dizziness, weakness, or fainting [id number] [employer]. [address] [place] [address]. All rights reserved. This information is not intended as a substitute for professional medical care. Always follow yourhealthcare professional's instructions. Follow Up Care 07/14/2023 18:28:54 With:BABAR PHILLIP Address: [address] [place] [id number] [facility] (1) When:2-4 days Comments:Schedule appointment for close follow-up if symptoms or not improving.Continue Zyrtec OR Benadryl until symptoms resolved.Use prednisone and famotidine as prescribed to help suppress the reaction.Return to the ED if symptoms worsen. [facility] 02-28-2024 Emergency department Discharge summary Discharge Instructions Thank you for allowing [facility] to assist you with your healthcare needs. [...] to the ED if symptoms worsen. Where: [address] [place] [address]- Business (1) Allergies amoxicillin codeine penicillin sulfa drugs [...] breathing or swallowing Dizziness, weakness, or fainting [phone] [employer]. [address] [place] [address]. All rights reserved. This information is not intended as a substitute for professional medical care. Always follow yourhealthcare professional's instructions. Additional Information VACCINATE! IT SAVES LIVES! Members of the community who have not yet received the COVID-19 vaccine and would like to receive it can visit one of [facility] vaccine clinics. There are many vaccine clinic locations within the [facility]. For locations and available times, please visit [email or web address] It is important to note that some COVID mobile vaccine clinics are held outdoors and may be canceled in rainy or stormy conditions. To learn more about pediatric vaccinations (ages 5-11), we invite you to visit the [facility] webpage. [email or web address]/[email or web address] [email or web address] learn more about the COVID-19 vaccine, we invite you to visit the CDC website for a list of frequently asked questions. https://www.cdc.gov/coronavirus/2019-ncov/vaccines/faq.html [facility] Patient Portal Access Instructions: Stay connected with your healthcare team and access your personal medical information anytime with the [facility] Patient Portal. If you would like a full copy of your medical records please contact the [facility] Medical Records Department Wednesday through Wednesday between 8a.m. and 4:30p.m. Please follow the directions below to access the portal: 1.Access the email account you provided upon registration to the [facility].2.Look for an invitation email from [facility].3.Open the email and access the invitation link: Accept Invitation to [facility]4.Fill in the required brewster to create your account. Sign into [email or web address] with your username and password that you [...] you will allow to register on the [facility] Patient Portal for access to your information. You can also access the [facility] Patient Portal on the [employer]. Simply click on Health Records under Shareable SocialData and then click on the adFreeq logo. HOW TO SAFELY DISPOSE OF PRESCRIPTION [...] Call your local pharmacy or go to http://bit.[place]/5K8Ap9c to find one close to you.3.Make use of household items: Use cat litter or old coffee grounds to dispose medications if other options arenot available. Mix your drugs with these household products, seal them in an airtight container andthrow it into the garbage. Call [facility]: [phone] to be sure your drugs can be [...] that I should contact my d octor. Patient/Outpatient Psychiatrist Signature: Date/Time: Relationship to Patient: Witness Name/Signature: Date/Time: [facility]02-28-2024 History of Present illness Narrative * Steve Ramirez APRN.TAX REVENUE OFFICER - 07/14/2023 8:42 AM EST Images from [...] 30 tablet^Rfl: 0 flash glucose scanning reader (TowerMetriXYLE ANA PAULA 2 READER)^1 Each once daily.^Disp: [...] NEEDED^Disp: 180 mL^Rfl: 2 flash glucose sensor (FREESTYLE ANA [...] Problems Paternal Grandfather Cancer Paternal Aunt other (SC) Paternal Aunt Great aunt Colon Cancer No [...] of care. This note was generated using PanelClaw software. It may contain errors in wording, punctuation, or spelling. Steve Ramirez APRN.JACINTA documented in this encounterSumma Health Wadsworth - [facility] Center02-23-2024 History of Present illness Narrative* Ana Gunderson [...] PATIENT PRESENTS WITH AN IMPLANTABLE OR ATTACHED APPLIANCE ADJUSTER: No RADIOLOGY DEPARTMENT: General X-ray: Exam(s) Completed: Chest X-Ray PERIPHERAL IV DATA: Not applicable SIGNED BY: RT Luis(R) July 09, 2023 3:29 PM documented in this encounterSumma Health Wadsworth - [facility] Center02-23-2024 History of Present illness Narrative* Niranjan Stiles PA - 07/09/2023 3:27 PM EST Images from the original note were not included. This note was created using AtTask. Subjective Darren Reinoso is a 43 year [...] 30 tablet^Rfl: 0 flash glucose scanning reader (AeroDron ANA PAULA 2 READER)^1 Each once daily.^Disp: [...] Problems Paternal Grandfather Cancer Paternal Aunt other (SC) Paternal Aunt Great aunt Colon Cancer No [...] ER evaluation. SKYLAR Flores documented in this encounterSumma Health Wadsworth - [facility]itt[facility] Center02-14-2024 History of Present illness Narrative* Shazia Lee APRN.TAX REVENUE OFFICER - 06/30/2023 4:16 PM EST This note was created using AtTask. Subjective Darren Reinoso is a 43 year [...] 30 tablet^Rfl: 0 flash glucose scanning reader (AeroDron ANA PAULA 2 READER)^1 Each once daily.^Disp: [...] Problems Paternal Grandfather Cancer Paternal Aunt other (SC) Paternal Aunt Great aunt Colon Cancer No [...] and frontal sinus tenderness present. Mouth/Throat: Lips: [place]. No lesions. Mouth: Mucous membranes are moist. [...] COVID/influenza/rsv negative with aby Moss TEACHING PROVIDER (Physician/PA/OVERAGE SHORTAGE AND DAMAGE CLERK) NOTE OF PERSONAL INVOLVEMENT IN CARE: I have personally seen and examined the patient and performed the medical decision-making components. I have reviewed the Advanced Practice Registered Nurse (OVERAGE SHORTAGE AND DAMAGE CLERK) Student's documentation and verified the findings in the note as written. Any additions or changes are noted in bold/italics. Signature: Shazia Lee Date: 06/30/2023 Time: 6:53 PM documented in this encounterSumma Health Wadsworth - [facility] Center02-14-2024 Miscellaneous Notes* Telephone Encounter - Tete Gonzalez [...] sentences during call, wheezing at times 8. HQQEWU-PUWS-[id number]: worse 9. OTHER SYMPTOMS: as above 10. HIGH RISK DISEASE: yes 11. VACCINE: see history 12. : no 13. O2 SATURATION MONITOR: as above Protocols used: COVID-19 - Diagnosed or Mmykzgyze-TXOPO-TT documented in this encounterSumma Health Wadsworth - [facility] Center12-06-2023 History of Present illness Narrative* Ana Gunderson [...] 21, 2023 2:38 PM documented in this encounterSumma Health Wad[facility]12-04-2023 Miscellaneous Notes* Telephone Encounter - Joyce Fuentes [...] Thank you. Joyce Fuentes. documented in this encounterSumma Health Wadsworth - [facility]ittman [facility]12-04-2023 Miscellaneous Notes* Telephone Encounter - Hope Dickey [...] you. Hope Dickey LPN. documented in this encounterSumma Health Wadsworth - [facility]ittman [facility]12-01-2023 Miscellaneous Notes* Telephone Encounter - Chaparrita Paez RN - 04/16/2023 4:45 PM EST Pt called and is notified of providers message and instructions. Pt voices understanding. Chaparrita Paez RN * Telephone Encounter - Linda Reyez APRN.JACINTA - 04/16/2023 4:37 PM EST Okay to try beataon, script sent * Telephone Encounter - Tarah [...] pt. Tarah Haider LPN documented in this encounterSumma Health Wadsworth - [facility]itt[facility] Center11-27-2023 Instructions* Patient Instructions* Linda Reyez APRN.TAX REVENUE OFFICER - 04/12/2023 9:38 AM EST Fact Sheet [...] of LAGEVRIO during to this registry at https://covid-pr.NetScaler.Fileblaze or . For individuals who are sexually [...] virus. COVID-19 illnesses have ranged from very dokg-va-bufnfw, including illness resulting in . While information [...] serious illnesses Take any medicines including prescription, ijzz-twi-jyflwup medicines, vitamins, and herbal products. How do [...] NG or OG that is size 12 Azeri (FR) or larger. If you miss a [...] to treat people with COVID-19. Go to https://www.fda.gov/jgkwnxdiw-aqighnhpqtkf-diy-response/cka-dljvkyyonamitfs-ktg- policy-framework/odqmlylvc-wwg-fyyfvmtvitgxy for more information. It is your choice [...] to FDA MedWatch at www.fda.gov/medwatch or call 0-620-ULX-8145 (1842.962.9939). How should I store LAGEVRIO? Store LAGEVRIO capsules at room temperature between 68 F to 77 F (20 C to 25 C). Keep LAGEVRIO and all medicines out of the reach of children. How can I learn more about COVID-19? Ask your healthcare provider. Visit www.cdc.gov/COVID19 Contact your local or state public health department. Call [employer] at (toll free in the U.S.) Visit www.molnupiravir.Fileblaze What Is an Emergency Use Authorization (EUA)? The [place] FDA has made LAGEVRIO available under an emergency access mechanism called an Emergency Use Authorization (EUA) The EUA is supported by a Ammunition Assembly I Laborer of Health and Human Service ([facility])declaration that circumstances exist to justify emergency use of drugs and biological products during the COVID-19 pandemic. LAGEVRIO for the treatment of adults with a current diagnosis of tzgy-gv-zdrsqvxy COVID-19 who are at high risk for [...] be used under the EUA). Dannie. for: [employer] [place] [address], [facility] For patent information: www.Elitecore Technologies.Fileblaze/research/patent Copyright Merck & Co., Inc., [place], [place], [place] and its affiliates. All rights reserved. [id number] Revised: June 2022 documented in this encounterCleveland [id number] History of Present illness Narrative* Linda Reyez APRN.TAX REVENUE OFFICER - 04/12/2023 9:23 AM EST VIRTUAL VISIT [...] visit. Either the patient or their legal representative personal service has been informed of the risks and [...] COVID. Presents via a virtual visit on Veduca zoom platform. She does have a medical history significant for DM, HTN, EAMON, asthma, and obesity. No history of CKD, last kidney function done 02/2023 was within normal limits. She has had COVID previously. Symptoms of body aches, not feeling well. Follows with pulmonary with [facility]. Congested. She is on 3 liters home [...] 1/2 hr before meal. flash glucose sensor (SportcutSTYLE ANA PAULA 2 SENSOR) kit 1 Each [...] mouth daily with breakfast. Take with lasix flash glucose scanning reader (FREESTYLE ANA PAULA [...] Complication, Without Long-Term Current Use of Insulin ([facility]) - 12/13/2017 Anxiety Plantar Fasciitis - 12/17/2016 Hyperlipidemia - 04/27/2016 Low Back Pain With Right-Sided Sciatica - 04/27/2016 Bilateral Hearing Loss - 05/09/2015 Bmi 50.0-59.9, Adult ([facility]) - 05/09/2015 Gerd (Gastroesophageal Reflux Disease) - 08/25/2012 Tobacco Use Disorder - 06/12/2008 Adjustment Disorder With Depressed Mood - 01/06/2005 Comment: [facility] hank bullard at [facility] Social History Tobacco Use Smoking status: [...] X2)-RITONAVIR 100 MG TABLET,DOSE PACK Linda Reyez APRN.TAX REVENUE OFFICER Patient verbalizes understanding of instructions from today's [...] development. Linda Reyez APRN.JACINTA documented in this encounterSumma Health Wadsworth - [facility] Center11-03-2023 Miscellaneous Notes* Telephone Encounter - Marita Gonzalez [...] you. Marita Gonzalez RN. documented in this encounterSumma Health Wadsworth - [facility]ittman [facility] Center10-18-2023 History of Present illness Narrative* Caryn Lowery APRN.TAX REVENUE OFFICER - 03/03/2023 12:32 PM EDT CC: Patient [...] 90 tablet^Rfl: 3 flash glucose scanning reader (AeroDron ANA PAULA 2 READER)^1 Each once daily.^Disp: [...] Problems Paternal Grandfather Cancer Paternal Aunt other (SC) Paternal Aunt Great aunt Colon Cancer No [...] - Instructed patient to contact office or uqcev-lr-jhyf after-hours promptly should condition worsen or any new symptoms appear. - Counseling Center [facility] and after hours crisis line - will [...] plan. Caryn Lowery APRN.CNP documented in this encounterSumma Health Wadsworth - Rittman Medical Center10-02-2023 Procedure [facility]08-29-2023 Hospital Discharge instructions Patient Education 01/12/2023 [...] dyes and rinses, soaps, solvents, waxes, fingernail mongolian, and deodorants Jewelry or watchbands made of [...] itching. You can buy this antihistamine at drug and [employer]. It can make you sleepy, so use [...] skin Yellow-brown crusts on the open blisters [id number] The Where[employer]. [address] [place] [address], [place] [address]. All rights reserved. This information is not intended as a substitute for professional medical care. Always follow yourhealthcare professional's instructions. Follow Up Care 01/11/2023 23:11:44 With:BABAR PHILLIP MD Address: [address] [place] [address]- When:2-4 days [facility] 08-29-2023 Note Discharge Instructions Thank you for allowing [facility] to assist you with your healthcare needs. The following is importantdischarge information regarding your hospital visit. Diagnosis from Today's Visit Itching What to Do Next Instructions from Your Care Team No qualifying data available. Post Acute Orders No qualifying data available. You Need to Schedule the Following Appointments Follow Up with BABAR PHILLIP MD When Within 2-4 days Where: [address] [place], [place] [id number]- Allergies amoxicillin codeine penicillin sulfa drugs Medications Please ask your primary doctor or pharmacist before taking any other medication not listed, including over the counter drugs, herbal medications, vitamins and or supplements as they may interact withur home medications. What How Much When Why [...] providers or retail pharmacies. Medication Leaflets prednisone (PRED virgil sone) Taigo What is the most important information I [...] may report side effects to FDA at 2-400-MOC-4220. What other drugs will affect prednisone? Sometimes [...] may affect prednisone. This includes prescription and smhg-wuc-fhknlqt medicines, vitamins, and herbal products. Not all [...] to ensure that the information provided by Folk[employer]. ('Multum') is accurate, up-to-date, and complete, but no guarantee is made to that effect. Drug information contained herein may be time sensitive. Tellme information has been compiled for use by healthcare practitioners and consumers in the [place] and therefore Tellme does not warrant that uses outside of the [place] are appropriate, unless specifically indicated otherwise. Memolanes drug information does not endorse drugs, diagnose patients or recommend therapy. Memolanes drug information isan informational resource designed to [...] effective or appropriate for any given patient. Tellme does not assume any responsibility for any aspect of healthcare administered with the aid of information [facility] provides. The information contained herein is not intended to cover all possible uses, directions, precautions, warnings, drug interactions, allergic reactions, or adverse effects. If you have questions about the drugs you are taking, check with your doctor, nurse or pharmacist. Copyright 9570-3919 [employer]inton [employer]. Version: 10.. Revision Date: 08/11/2018. Education Materials [...] dyes and rinses, soaps, solvents, waxes, fingernail mongolian, and deodorants Jewelry or watchbands made of [...] itching. You can buy this antihistamine at [employer] and [employer]geist. It can make you sleepy, so use [...] skin Yellow-brown crusts on the open blisters 7217-4612 The [employer]. [address] [place] [address], [place] [address]. All rights reserved. This information is not intended as a substitute for professional medical care. Always follow yourhealthcare professional's instructions. Additional Information VACCINATE! IT SAVES LIVES! Members of the community who have not yet received the COVID-19 vaccine and would like to receive it can visit one of [facility] vaccine clinics. There are many vaccine clinic locations within the [facility]. For locations and available times, please visit www.gettheshot.coronavirus.[place].gov/. It is important to note that some COVID mobile vaccine clinics are held outdoors and may be canceled in rainy or stormy conditions. To learn more about pediatric vaccinations (ages 5-11), we invite you to visit the [facility] webpage. https://www.[facility].org/pages/0207-Rqncz-Pcdzjofkmvv-Bpjxfzeckq-Pdajb-Rls stions.htmlTo learn more about the COVID-19 vaccine, we invite you to visit the CDC website for a list of frequently asked questions. https://www.cdc.gov/coronavirus/2019-ncov/vaccines/faq.html [facility] Patient Portal Access Instructions: Stay connected with your healthcare team and access your personal medical information anytime with the [facility] Patient Portal. If you would like a full copy of your medical records please contact the [facility] Medical Records Department Wednesday through Wednesday between 8a.m. and 4:30p.m. Please follow the directions below to access the portal: 1.Access the email account you provided upon registration to the hospital.2.Look for an invitation email from [facility].3.Open the email and access the invitation link: Accept Invitation to [facility]4.Fill in the required brewster to create your account. Sign into www.[email or web address] with your username and password that you [...] you will allow to register on the [facility] Patient Portal for access to your information. You can also access the [facility] Patient Portal on the Adeyoh dominguez. Simply click on Health Records under [employer] and then click on the adFreeq logo. HOW TO SAFELY DISPOSE OF PRESCRIPTION [...] Call your local pharmacy or go to [email or web address] to find one close to you.3.Make use of household items: Use cat litter or old coffee grounds to dispose medications if other options arenot available. Mix your drugs with these household products, seal them in an airtight container andthrow it into the garbage. Call [facility] [place]: [phone] to be sure your drugs can be [...] been reviewed and explained to me and IARLETH JODY L understand my current condition and have read and understand these discharge instructions. I have received a written copy of the plan/instructions. If I have questions, I am aware that I should contact my d octor. Patient/Outpatient Psychiatrist Signature: Date/Time: Relationship to Patient: Witness Name/Signature: Date/Time: [facility]08-21-2023 Procedure [facility]08-17-2023 History of Present illness Narrative* Caryn Lowery APRN.TAX REVENUE OFFICER - 12/31/2022 11:18 AM EDT CC: Patient [...] keep blood sugar up. Has seen a transformer repairer and has follow up appointment in January. [...] to walk more for example walked around [employer] for over an hour. REVIEW OF SYSTEMS [...] 90 tablet^Rfl: 3 flash glucose scanning reader (FREESTDolphin Geeks ANA PAULA 2 READER)^1 Each once daily.^Disp: [...] Problems Paternal Grandfather Cancer Paternal Aunt other (SC) Paternal Aunt Great aunt Colon Cancer No [...] plan. Caryn Lowery APRN.CNP documented in this encounterSumma Health Wadsworth - [facility]ittman [facility] Center08-07-2023 Instructions* Patient Instructions* Ginna Gonzales RD - 12/21/2022 1:35 PM EDT 1. Follow partial liquid protein diet; have a nutrition drink 160-250 calories and 15-30 grams protein for breakfast and lunch and a fresh fruit with breakfast and lunch. (Protein drinks such as Bynum, Premier, Fit n Active at [employer], generic protein drink at [employer], whey protein in skim or 1% milk) [...] such as Crystal Light , flavored water, Xerjj7B , Minute Maid light lemonade, Propel ) 5. Continue daily activities AND add exercise to at least 30 min cardio 5 days per week or as tolerated; add in weight resistance exercise, preferably 2-3 days per week documented in this encounterSumma Health Wadsworth - [facility]ittman [facility] Center08-07-2023 History of Present illness Narrative* Ginna Gonzales [...] as Bynum, Premier, Fit n Active at [employer], generic protein drink at [employer], whey protein in skim or 1% milk) [...] such as Crystal Light , flavored water, Quqvi9W , Minute Maid light lemonade, Propel ) [...] few months) Vitamins/Supplements - no Food from Food bank Recovering addict for 16 years. Activity: Activities [...] Inflammation: no identifiable sources Education Materials Provided: 6848-3249 Calorie Partial Liquid Protein Diet READINESS TO [...] 2022 TIME: 1:04 PM documented in this encounterSumma Health Wadsworth - [facility]ittman [facility] Center08-07-2023 Miscellaneous Notes* Telephone Encounter - Shira Chang LPN - 12/21/2022 9:06 AM EDT [employer] phones requesting refills as follows: Requested Prescriptions Pending Prescriptions Disp Refills omeprazole (PRILOSEC) 40 mg capsule 30 capsule 5 Sig: Take 1 capsule by mouth daily before breakfast. 1/2 hr before meal. flash glucose sensor (FREESTYLE ANA PAULA 2 SENSOR) kit 2 Kit 3 Si Each once daily. ALONSO: 12/14/22 NOV: 12/31/22 Shira Chang LPN documented in this encounterSumma Health Wadsworth - [facility] Center07-28-2023 Miscellaneous Notes* Telephone Encounter - Barb Dempsey [...] all of the above. documented in this encounterSumma Health Wadsworth - Rittman Medical Center07-27-2023 History of Present illness Narrative* Niranjan Stiles [...] can do at this point is a dkvjf-sd-wfvv glucose. She declines. Nolab testing available at [...] close follow-up with PCP. documented in this encounterSumma Health Wadsworth - Rittman [facility] Center07-11-2023 Miscellaneous Notes* Telephone Encounter - Evan Kelly APRN.CNP - 11/24/2022 9:18 AM EDT The following [...] name and date of : Yes, Provider Kenji Date 11-24-22 Time 9:13 am Pharmacy phones [...] you. Silviano Root RN documented in this encounterSumma Health Wadsworth - [facility]itt[facility] Center07-10-2023 History of Present illness Narrative* Caryn Lowery APRN.TAX REVENUE OFFICER - 11/23/2022 11:00 AM EDT CC: Patient [...] 90 tablet^Rfl: 3 flash glucose scanning reader (AeroDron ANA PAULA 2 READER)^1 Each once daily.^Disp: [...] Problems Paternal Grandfather Cancer Paternal Aunt other (SC) Paternal Aunt Great aunt Colon Cancer No [...] long-term current use of insulin ([facility]) - ICD9: 250.00, ICD10: E11.9 [...] of 50.0 to 59.9 in adult (HCC) - ICD9: 278.01, V85.43, ICD10: E66.1, Z68.43 [...] plan. Caryn Lowery APRN.CNP documented in this encounterSumma Health Wadsworth - [facility]itt[facility] Center05-12-2023 Miscellaneous Notes* Telephone Encounter - Yuliana Bryson LPN - 09/25/2022 2:06 PM EDT ALONSO--08/24/22 NOV--11/23/22 LAST REFILL--04/15/22 LAST LABS--08/24/22 documented in this encounterSumma Health Wadsworth - [facility]itt[facility] Center04-27-2023 History of Present illness Narrative* Duran Blunt MD - 09/10/2022 2:04 PM EDT Duran Blunt MD Department of Orthopaedics Orthopaedics [address] [place] [address] Dept: [phone] Dept September 10, 2022 CHIEF COMPLAINT: Pain [...] mild degenerative changes in the left shoulder. Wood Die Maker: PSCB Transcribe Date/Time: Aug 23 2022 4:12P [...] daily as needed. flash glucose scanning reader (FREESTYLE ANA PAULA [...] anxiety) Duran Blunt MD documented in this encounterSumma Health Wadsworth - [facility]ittman [facility] Center04-20-2023 Miscellaneous Notes* Telephone Encounter - Marita Gonzalez [...] you. Marita Gonzalez RN documented in this encounterSumma Health Wadsworth - [facility]ittman [facility] Center04-14-2023 Miscellaneous Notes* Telephone Encounter - Marita Gonzalez [...] you. Marita Gonzalez RN documented in this encounterSumma Health Wadsworth - [facility]ittman [facility] Center04-10-2023 Miscellaneous Notes* Telephone Encounter - Kelli Mendoza RN - 08/24/2022 4:20 PM EDT Last Office Visit: 08/24/2022 Future Office Visit: 11/23/2022 Requested Prescriptions Pending Prescriptions Disp Refills dicyclomine (BENTYL) 20 mg tablet 28 tablet 0 Sig: Take 1 tablet by mouth four times daily as needed for up to 7 days. Date of Last Labs: 08/24/2022 documented in this encounterSumma Health Wadsworth - Rittman [facility] Center04-10-2023 History of Present illness Narrative* Caryn Lowery APRN.JACINTA - 08/24/2022 11:04 AM EDT CC: Patient [...] an upcoming appointment with Dr. Gary and [facility] for second opinion as patient is [...] daily as needed. flash glucose scanning reader (FREESTYLE ANA PAULA [...] Problems Paternal Grandfather Cancer Paternal Aunt other (SC) Paternal Aunt Great aunt Colon Cancer No [...] per minute AXIS: Normal axis INTERVALS: Normal [place] interval QRS COMPLEX: Normal ST SEGMENT: Normal [...] with more than 50% of the total qdjw-ej-lwyu time of the visit in counseling / coordination of care. Prescription instructions reviewed with patient as applicable. Potential red flag symptoms discussed with the patient. Reviewed appropriate action plan to take if red flag symptoms occur. Patient agreeable to treatment plan. Caryn Lowery APRN.CNP documented in this encounterSumma Health Wadsworth - [facility]itt[facility] Center04-06-2023 History of Present illness Narrative* Ana Gunderson [...] 20, 2022 2:51 PM documented in this encounterSumma Health Wadsworth - Rittman [facility] Center03-20-2023 Procedure [facility]03-14-2023 Miscellaneous Notes* Telephone Encounter - Joyce Gonzalez LPN - 07/28/2022 1:17 PM EDT Paperwork and orders faxed to Dr.Friend's office. Joyce Gonzalez LPN * Telephone Encounter [...] Pt with provider today at 1140 am, kailyn declined. Tried to schedule her with Wednesday or Wed with Dr Phillip and she said she would call inif she needed an appointment. * Telephone Encounter - Babar Phillip MD - 07/24/2022 5:12 PM EST She needs eval in office Regards, Babar Phillip MD * Telephone Encounter - Deisy Gamino [...] regularly. Is she on any diabetic medications? Babar Medieros MD * Telephone Encounter - Tete Gonzalez [...] advise patient. Thank you. documented in this encounterSumma Health Wadsworth - [facility]ittman [facility] Center03-08-2023 Miscellaneous Notes* Telephone Encounter - Florencia Barrios RN - 07/22/2022 6:04 PM EST Spoke with patient. Given message from provider's office. Patient verbalizes understanding. Florencia Barrios RN * Telephone Encounter - Babar Phillip MD - 07/22/2022 5:52 PM EST Darren, you do not need us to certify or recommend for the medical marijuana, you will find those designated clinic in [place] and can make a sefl referral That's the most we can advice, Sorry Its a Clinic policy. Regards, Baabr Phillip MD * Telephone Encounter - Marita Gonzalez RN - 07/22/2022 2:51 PM EST Patient calls to ask if provider would assist her to get an [place] green card for medical marijuana. Notified patient that [facility] provider's don't recommend or support medical marijuana. Patient asked that request be sent to provider to double check that provider isn't willing to writea recommendation. Marita Gonzalez RN documented in this encounterSumma Health Wadsworth - [facility] Center03-08-2023 Miscellaneous Notes* Telephone Encounter - Katie Moon [...] advise, Kelli Mendoza RN documented in this encounterSumma Health Wadsworth - [facility]itt[facility] Center03-03-2023 Miscellaneous Notes* Telephone Encounter - Lela Lea - 07/17/2022 4:34 PM EST Progress notes dated 06/17/22 with SKYLAR Lauren were faxed for you to review; in Epic. Thanks. Lela Mackey documented in this encounterSumma Health Wadsworth - [facility]itt[facility] Center03-03-2023 History of Present illness Narrative* Caryn Lowery, OVERAGE SHORTAGE AND DAMAGE CLERK.TAX REVENUE OFFICER - 07/17/2022 2:22 PM EST CC: Patient [...] Problems Paternal Grandfather Cancer Paternal Aunt other (SC) Paternal Aunt Great aunt Colon Cancer No [...] plan. Caryn Lowery APRN.CNP documented in this encounterSumma Health Wadsworth - [facility] Center03-02-2023 Miscellaneous Notes* Telephone Encounter - Flores Yanes [...] advise. Flores Yanes MA documented in this encounterSumma Health Wadsworth - [facility]itt[facility] Center03-02-2023 Miscellaneous Notes* Telephone Encounter - Caryn Lowery APRN.CNP - 07/16/2022 3:01 PM EST Noted will review in appointment tomorrow. Thank you Caryn Lowery APRN.CNP * Telephone Encounter - Florencia Barrios RN - 07/16/2022 2:19 PM EST Patient calling to say she had an EGD and Colonoscopy at [facility] on 06/30/[address] Roque. She says the results were negative but she is still having stomach issues of right upper abdominal pain, poor appetite, nausea and diarrhea with some occasional rectal bleeding( about one teaspoon). Requesting follow up appointment. Scheduled tomorrow with Caryn. Florencia Barrios RN documented in this encounterSumma Health Wadsworth - Rittman [facility] Center02-14-2023 Procedure note* Aravind Roque MD - 06/30/2022 2:43 [place] [address] IMMEDIATE POST ENDOSCOPY PROCEDURE NOTE Patient: DARREN REINOSO ARAVIND ROQUE M.D. [id number] F Status: [facility] AMB Report Date & Time: 06/30/22 1443 [...] By: ARAVIND ROQUE M.D. Tests performed at: [facility] [address], [place] [address] documented in this encounterSumma Health Wadsworth - Rittman Medical Center02-01-2023 Instructions* Patient Instructions* Jared Lauren PA-C - [...] If you do not have a responsible auto parts delivery driver (family member or friend) withyou to take you home, your exam cannot be done with sedation and will be cancelled. Please bring a list of all of your current medications, including any Xbln-qxt-Vcanqpf medications with you. Medications If you take [...] nuts, salad/vegetables, or fresh and dried fruit. 1 04/2019 Bowel Preparation Instructions for: Suprep One [...] your procedure. 2 04/2019 documented in this encounterSumma Health Wadsworth - [facility] Center02-01-2023 History of Present illness Narrative* Jared Lauren [...] 17, 2022 2:23 PM documented in this encounterSumma Health Wadsworth - Rittman [facility] Center01-25-2023 Miscellaneous Notes* Telephone Encounter - Teetee Villareal [...] scheduling EGD. * Telephone Encounter - Teetee Villareal - 06/10/2022 12:58 PM EST Patient called [...] is scheduled to see a provider in [place] regarding getting setup to have the EGD done. Due to her BMI she would need to be scoped at a hospital setting. Please advise patient if there is anything that she can do to help with her discomfort. Teetee Villareal documented in this encounterSumma Health Wadsworth - [facility]itt[facility] Center01-18-2023 Instructions* Patient Instructions* Kelli Mendenhall PA-C - [...] help alleviate reflux symptoms. documented in this encounterSumma Health Wadsworth - [facility]ittman [facility] Center01-18-2023 History of Present illness Narrative* Kelli Mendenhall [...] for internal providers or letter via the [employer] for external providers. HPI: Darren [...] it. Did vomit on Wednesdayafter eating at [employer] in [place]. Bowel movements are irregular. Can be more [...] Abs Lymph 1.00 - 4.00 k/uL 3.03 Rutland% % 6.4 Abs Rutland <0.87 k/uL 0.72 Eosin% % 3.8 Abs [...] Problems Paternal Grandfather Cancer Paternal Aunt other (SC) Paternal Aunt Great aunt Colon Cancer No [...] does not want to travel outside of [place] for testing. Was agreeable to go to [place] for scope if able. - EGD DIAGNOSTIC; [...] with more than 50% of the total kefe-sd-fmor time of the visit in counseling / coordination of care. I have confirmed and edited as necessary, the PFSH and ROS obtained by others. Kelli Mendenhall PA-C June 03, 2022 3:59 PM documented in this encounterSumma Health Wadsworth - Rittman [facility] Center01-12-2023 History of Present illness Narrative* Duran Blunt MD - 05/28/2022 3:27 PM EST Patient presents with: Right Knee - Established Patient, Knee Pain Duran Blunt MD Department of Orthopaedics Orthopaedics [address] [facility] [address] Dept: [phone] Dept May 28, 2022 CHIEF COMPLAINT: Established [...] daily as needed. flash glucose scanning reader (FREESTYLE ANA PAULA [...] anxiety) Duran Blunt MD documented in this encounterSumma Health Wadsworth [facility]itt[facility] Center2023 History of Present illness Narrative* Caryn Lowery, LILI.TAX REVENUE OFFICER - 05/25/2022 10:48 AM EST CC: Patient [...] 50 g^Rfl: 5 flash glucose scanning reader (AeroDron ANA PAULA 2 READER)^1 Each once daily.^Disp: [...] Problems Paternal Grandfather Cancer Paternal Aunt other (SC) Paternal Aunt Great aunt Social History Tobacco [...] plan. Caryn Lowery APRN.CNP documented in this encounterDeanna Ville [address]-06-2023 Miscellaneous Notes* Telephone Encounter - Katie Moon [...] asking for rx to be sent to [place] [facility]. Patient has no glucose meter to double check blood sugar with the Ana Paula sensor. Pending rx to file Please advise * Telephone Encounter - Silviano Root RN - 05/22/2022 10:41 AM EST Patient reports she spoke with MANUEL last night because her BS went as low as 62. Was advised to ER but did not go. Reports BS yesterday- 95 fasting, 182 after breakfast, 66 before lunch, 70 after lunch, 89 before dinner, 70 after dinner, 64 before bed, 62 when called NOC at 1 am. Reports she did noteat much food yesterday. Reports after speaking with NOC ate 3 TBLs sugar in warm water, [...] 87, 106, 73. Patient scheduled appt with [facility] for Wednesday. Patient declined same day appt [...] reading with another device. documented in this encounterSumma Health Wadsworth - Rittman [facility] Center01-06-2023 Miscellaneous Notes* Telephone Encounter - Katie Moon [...] Advice Protocols used: Diabetes - Low Blood Pzkxl-UVNLV-XA documented in this encounterSumma Health Wadsworth - Rittman [facility] Center01-03-2023 Miscellaneous Notes* Telephone Encounter - Tete Gonzalez [...] you. Tete Gonzalez RN documented in this encounterSumma Health Wadsworth - Rittman [facility] Center12-30-2022 Miscellaneous Notes* Telephone Encounter - Marita Gonzalez [...] you. Marita Gonzalez RN documented in this encounterSumma Health Wadsworth - Rittman Medical Center12-29-2022 Miscellaneous Notes* Telephone Encounter - Florencia Barrios RN - 05/14/2022 2:21 PM EST [facility] calling on behalf of patient for refill of Ana Paula 2 sensors. Requesting increase to 2kits so patient only needs to go to pharmacy once a month instead of every 14 days. Pended. Patient has been identified by name and date of : Yes, Provider Sebastián Date: 05/14/22 Time: 1430 PM Pharmacy phones [...] you. Florencia Barrios RN documented in this encounterSumma Health Wadsworth - Rittman [facility] Center12-28-2022 Miscellaneous Notes* Telephone Encounter - Deloris Cullen RN - 05/13/2022 9:25 AM EST Phone call to patient. Notified of provider's message below and she verbalized understanding. Appointment scheduled with Dr. Blunt on , 05/28 at [facility]. * Telephone Encounter - Leilani Mahmood PA-C [...] tomorrow. Manju Alejandre LPN documented in this encounterSumma Health Wadsworth - Rittman Medical Center11-30-2022 Miscellaneous Notes* Telephone Encounter - Caryn Lowery APRN.JACINTA - 04/15/2022 7:19 PM EST Discussed in appointment. Caryn Lowery APRN.JACINTA * Telephone Encounter - Samira Davenport Pss - 04/15/2022 10:42 AM EST Patient called stating she has an appt today with Caryn and a CT scheduled for the 8th at [place]. She is asking if she needs to keep appointment today and if she should try to have CT scheduled sooner. Please call patient and advise. documented in this encounterSumma Health Wadsworth - Rittman Medical Center11-30-2022 History of Present illness Narrative* Caryn Lowery APRN.JACINTA - 04/15/2022 2:43 PM EST CC: Patient presents with: Recheck: Follow up HPI Darren Reinoso is a 42 year old female who presents today for abdominal pain nausea and decreased appetite. Did not get CT scan completed as ordered. Did take the antibiotics that were prescribed. [facility] to [facility]. Did [...] 21 tablet^Rfl: 0 flash glucose scanning reader (SportcutSTYLE ANA PAULA 2 READER)^1 Each once daily.^Disp: [...] Problems Paternal Grandfather Cancer Paternal Aunt other (SC) Paternal Aunt Great aunt Social History Tobacco [...] plan. Caryn Lowery APRN.CNP documented in this encounterSumma Health Wadsworth - Rittman Medical Center11-28-2022 Miscellaneous Notes* Telephone Encounter - Babar Phillip [...] one. Please advise patient. documented in this encounterSumma Health Wadsworth - Rittman Medical Center11-23-2022 History of Present illness Narrative* Caryn Lowery APRN.CNP - 04/08/2022 2:34 PM EST CC: Patient [...] (Sulfonamide Antibiotics) MEDICATIONS flash glucose scanning reader (SportcutSTYLE ANA PAULA 2 READER)^1 Each once daily.^Disp: [...] Problems Paternal Grandfather Cancer Paternal Aunt other (SC) Paternal Aunt Great aunt Social History Tobacco [...] plan. Caryn Lowery APRN.CNP documented in this encounterSumma Health Wadsworth - Rittman Medical Center11-14-2022 History of Present illness Narrative* Shazia Brand [...] 30, 2022 11:07 AM documented in this encounterSumma Health Wadsworth - Rittman Medical Center11-09-2022 History of Present illness Narrative* Caryn Lowery APRN.CNP - 03/25/2022 5:56 PM EST CC: Patient presents with: Recheck: Follow up, trulicity. Nausea and vomiting. HPI Darren Reinoso is a 42 year old female who presents today for nausea and GI upset since increasing the trulicity 4 weeks ago. DIABETES MELLITUS: Ms. Reionso denies excessive thirst or increased frequency of [...] finger but was told her insurance covers freestyle ana paula. Patient's last HgA1C was Hemoglobin A1C (%) [...] Problems Paternal Grandfather Cancer Paternal Aunt other (SC) Paternal Aunt Great aunt Social History Tobacco [...] plan. Caryn Lowery APRN.CNP documented in this encounterSumma Health Wadsworth - Rittman [facility] Center11-04-2022 Miscellaneous Notes* Telephone Encounter - Chaparrita Paez [...] you. Chaparrita Paez RN documented in this encounterSumma Health Wadsworth - Rittman Medical Center10-25-2022 Miscellaneous Notes* Telephone Encounter - Babar Phillip [...] fever, but feeling colder Protocols used: Rectal Cbwuxekr-OUTST-SB documented in this encounterSumma Health Wadsworth - Rittman Medical Center10-07-2022 History of Present illness Narrative* Caryn Lowery, OVERAGE SHORTAGE AND DAMAGE CLERK.TAX REVENUE OFFICER - 02/20/2022 1:23 PM EDT CC: Patient [...] Problems Paternal Grandfather Cancer Paternal Aunt other (SC) Paternal Aunt Great aunt Social History Tobacco [...] plan. Caryn Lowery APRN.CNP documented in this encounterSumma Health Wadsworth - Rittman [facility] Center09-26-2022 History of Present illness Narrative* Ana Gunderson [...] 09, 2022 2:44 PM documented in this encounterSumma Health Wadsworth - Rittman Medical Center09-21-2022 Miscellaneous Notes* Telephone Encounter - Chaparrita Paez [...] for her diabetes. Thank you Caryn Lowery APRN.JACINTA * Telephone Encounter - Niki Harris LPN [...] - 02/03/2022 11:13 AM EDT Called the phramacy again and they report pt has caresource insurance. This is not what we have. Pts IDnumber is [id number] BIN [id number] Rx group [id number] PCN [id number]. Pharmacy report there is no insurance covering this new medicine for weight loss. darren reinoso Araujo: [id number] Marco A CHENG help? Call us at Status Sent to [facility] Mounjaro 2.5MG/0.5ML pen-injectors Form [facility] Medicaid Electronic Prior Authorization Request Form (2016 NCPDP) * Telephone Encounter - Tarah Haider LPN [...] - 01/23/2022 1:46 PM EDT Tracie from [place] calls states pts medication Tirepatide ( Mounjaro) is coming up needing prior Authorization with number . documented in this encounterSumma Health Wadsworth - Rittman Medical Center09-12-2022 Miscellaneous Notes* Telephone Encounter - Katie Moon [...] inflammation. Pt was scheduled with Caryn Lowery NP tomorrow at 1140 am. Pt wasalso reporting that she has been trying to get her PT records from [facility] sent to [facility], and they told her she needs to fill out a consent form. If provider could have the form forPt to fill out so we could get those forms sent over for her, then she would be able to get her back injections. documented in this encounterSumma Health Wadsworth - Rittman Medical Center08-09-2022 Miscellaneous Notes* Telephone Encounter - Elle Hutchins [...] TABLET BY MOUTH DAILY documented in this encounterSumma Health Wadsworth - Rittman Medical Center08-08-2022 Instructions* Patient Instructions* Anu Lowery APRN.CNP - [...] worsening infection, call immediately. documented in this encounterSumma Health Wadsworth - Rittman Medical Center08-08-2022 History of Present illness Narrative* Anu Older, OVERAGE SHORTAGE AND DAMAGE CLERK.TAX REVENUE OFFICER - 12/22/2021 3:51 PM EDT Images from [...] Problems Paternal Grandfather Cancer Paternal Aunt other (SC) Paternal Aunt Great aunt Social History Tobacco [...] plan. Anu Lowery APRN.CNP documented in this encounterSumma Health Wadsworth - Rittman [facility] Center08-05-2022 Instructions* Patient Instructions* Sheri De La Cruz [...] PCP for further treatment documented in this encounterSumma Health Wadsworth - Rittman Medical Center08-05-2022 History of Present illness Narrative* Sheri De [...] have confirmed and edited as necessary, the [facility] Review of Systems Constitutional: Negative for [...] De La Cruz APRN.CNP documented in this encounterSumma Health Wadsworth - Rittman Medical Center08-05-2022 Miscellaneous Notes* Telephone Encounter - Caryn Lowery [...] size of quarter. Advised to go to [facility] care for evaluation. documented in this encounterSumma Health Wadsworth - Rittman Medical Center06-10-2022 Miscellaneous Notes* Telephone Encounter - Caryn Lowery APRN.CNP - 10/24/2021 7:59 AM EDT Noted. Edema and symptoms improved at this time. Caryn Lowery APRN.CNP * Telephone Encounter - Victoria Ackerman [facility] - 10/23/2021 2:44 PM EDT Patient had an order put in by Dr Phillip for an Echo and the insurance has denied it due to Peer to Peer no being done nor has an appeal been filed. This can still be done by calling [phone] for a peer to peer or by faxing for an appeal at [phone] or by mailing appeal to Maintenance Assistant, [employer]. Attention Appeals Dept. [address] [place] [address] The patient can not be scheduled for this test until this has been done in some form documented in this encounterSumma Health Wadsworth - Rittman [facility] Center06-06-2022 History of Present illness Narrative* Caryn Lowery, LILI.TAX REVENUE OFFICER - 10/20/2021 1:33 PM EDT CC: Patient [...] Problems Paternal Grandfather Cancer Paternal Aunt other (SC) Paternal Aunt Great aunt Social History Tobacco [...] plan. Caryn Lowery APRN.CNP documented in this encounterSumma Health Wadsworth - Rittman [facility] Center05-17-2022 Miscellaneous Notes* Telephone Encounter - Shira Chang LPN - 09/30/2021 3:34 PM EDT Erik calling for refill. ALONSO: 07/03/21. No outstanding labs NOV: 6/6/22 Last Refill: 04/08/21 #62 5 refills Shira Chang LPN documented in this encounterSumma Health Wadsworth - Rittman Medical Center05-16-2022 Miscellaneous Notes* Telephone Encounter - Caryn Lowery [...] that was cancelled back in 2021 Beckie SOTOMAYOR * Telephone Encounter - Katie Moon Ma [...] and kidney/potassium function. Thank you Caryn Lowery APRN.CNP * Telephone [...] smoking and loose weight. Patient requests Caryn review because she has evaluated her legs most recently. Please review and advise, Marita Gonzalez RN documented in this encounterSumma Health Wadsworth - Rittman Medical Center05-11-2022 Miscellaneous Notes* Telephone Encounter - Marita Gonzalez [...] you. Marita Gonzalez RN documented in this encounterSumma Health Wadsworth - Rittman Medical Center03-21-2022 History of Present illness Narrative* Duran Blunt MD - 08/04/2021 2:52 PM EDT Duran Blunt MD Department of Orthopaedics Orthopaedics [address] [facility] [address] Dept: [phone] Dept August 04, 2021 CHIEF COMPLAINT: Post [...] Antibiotics) Duran Blunt MD documented in this encounterSumma Health Wadsworth - Rittman [facility] Center12-09-2021 History of Present illness Narrative* Brittney Trent, RT(R) - 04/24/2021 11:50 AM EST Radiology [...] 24, 2021 11:48 AM documented in this encounterSumma Health Wadsworth - Rittman [facility] Center10-27-2021 History of Present illness Narrative* Ana Gunderson [...] 12, 2021 2:21 PM documented in this encounterSumma Health Wadsworth - Rittman [facility] Center09-10-2021 History of Present illness Narrative* Brittney Trent [...] IV DATA: Not applicable SIGNED BY: RT Bob(Carlo) January 24, 2021 3:50 PM documented in this encounterSumma Health Wadsworth - Rittman [facility] Center07-27-2021 NoteHNO ID: [id number] Author: LIZZY Rodriguez) Service: Radiology Author Type: Geothermal Electrical Engineer Type: Progress Notes Filed: 12/10/2020 6:45 PM [...] meds and reschedule the MRI SIGNATURE: RT Jennifer(Carlo) PATIENT NAME: Darren Reinoso DATE: December 10, [...] IV DATA: Not applicable SIGNED BY: RT Jennifer(Carlo) December 10, 2020 6:31 PMOhio Valley [phone] History of Present illness Narrative* Ana Gunderson RT(Carlo) - 11/12/2020 11:10 AM EDT Radiology Service [...] 12, 2020 11:20 AM documented in this encounterSumma Health Wadsworth - Rittman Medical Center10-10-2018 History of Past illness Narrative* Problem Noted Date Resolved Date Epicondylitis, lateral, left 02/23/2018 Overview: Added automatically from request for surgery [id number] Controlled type 2 diabetes m ellitus without complication, without long-term current use of insulin 12/13/2017 06/29/2018 Right elbow pain 03/11/2017 11/02/2019 Overview: Added automatically from request for surgery [id number] Right lateral epicondylitis 03/11/201710/15 Overview: Added automatically from request for surgery [id number] Rectal bleeding 02/25/2017 11/02/2019 Overview: Added automatically from request for surgery [id number] Elbow pain, right 12/17/2016 11/02/2019 Overview: Has [...] of this encounter (statuses as of 08/25/2021) [facility]10-10-2018 History of Past illness Narrative* Problem Noted Date Resolved Date Epicondylitis, lateral, left 02/23/2018 Overview: Added automatically from request for surgery [id number] Controlled type 2 diabetes m ellitus without complication, without long-term current use of insulin 12/13/2017 06/29/2018 Right elbow pain 03/11/2017 11/02/2019 Overview: Added automatically from request for surgery [id number] Right lateral epicondylitis 03/11/201710/15 Overview: Added automatically from request for surgery [id number] Rectal bleeding 02/25/2017 11/02/2019 Overview: Added automatically from request for surgery [id number] Elbow pain, right 12/17/2016 11/02/2019 Overview: Has [...] of this encounter (statuses as of 09/24/2021) [facility]10-10-2018 History of Past illness Narrative* Problem Noted Date Resolved Date Epicondylitis, lateral, left 02/23/2018 Overview: Added automatically from request for surgery [id number] Controlled type 2 diabetes m ellitus without complication, without long-term current use of insulin 12/13/2017 06/29/2018 Right elbow pain 03/11/2017 11/02/2019 Overview: Added automatically from request for surgery [id number] Right lateral epicondylitis 03/11/201710/15 Overview: Added automatically from request for surgery [id number] Rectal bleeding 02/25/2017 11/02/2019 Overview: Added automatically from request for surgery [id number] Elbow pain, right 12/17/2016 11/02/2019 Overview: Has [...] of this encounter (statuses as of 09/29/2021) [facility]10-10-[facility] History of Past illness Narrative* Problem Noted Date Resolved Date Epicondylitis, lateral, left 02/23/2018 Overview: Added automatically from request for surgery [id number] Controlled type 2 diabetes m ellitus without complication, without long-term current use of insulin 12/13/2017 06/29/2018 Right elbow pain 03/11/2017 11/02/2019 Overview: Added automatically from request for surgery [id number] Right lateral epicondylitis 03/11/201710/15 Overview: Added automatically from request for surgery [id number] Rectal bleeding 02/25/2017 11/02/2019 Overview: Added automatically from request for surgery [id number] Elbow pain, right 12/17/2016 11/02/2019 Overview: Has [...] of this encounter (statuses as of 10/01/2021) [facility]10-10-[facility] History of Past illness Narrative* Problem Noted Date Resolved Date Epicondylitis, lateral, left 02/23/2018 Overview: Added automatically from request for surgery [id number] Controlled type 2 diabetes m ellitus without complication, without long-term current use of insulin 12/13/2017 06/29/2018 Right elbow pain 03/11/2017 11/02/2019 Overview: Added automatically from request for surgery [id number] Right lateral epicondylitis 03/11/201710/15 Overview: Added automatically from request for surgery [id number] Rectal bleeding 02/25/2017 11/02/2019 Overview: Added automatically from request for surgery [id number] Elbow pain, right 12/17/2016 11/02/2019 Overview: Has [...] of this encounter (statuses as of 10/10/2021) [facility]10[facility]10-[facility] History of Past illness Narrative* Problem Noted Date Resolved Date Epicondylitis, lateral, left 02/23/2018 Overview: Added automatically from request for surgery [id number] Controlled type 2 diabetes m ellitus without complication, without long-term current use of insulin 12/13/2017 06/29/2018 Right elbow pain 03/11/2017 11/02/2019 Overview: Added automatically from request for surgery [id number] Right lateral epicondylitis 03/11/201710/15 Overview: Added automatically from request for surgery [id number] Rectal bleeding 02/25/2017 11/02/2019 Overview: Added automatically from request for surgery [id number] Elbow pain, right 12/17/2016 11/02/2019 Overview: Has [...] of this encounter (statuses as of 10/20/2021) [facility]10[facility] of Past illness Narrative* Problem Noted Date Resolved Date Epicondylitis, lateral, left 02/23/2018 Overview: Added automatically from request for surgery [id number] Controlled type 2 diabetes m ellitus without complication, without long-term current use of insulin 12/13/2017 06/29/2018 Right elbow pain 03/11/2017 11/02/2019 Overview: Added automatically from request for surgery [id number] Right lateral epicondylitis 03/11/201710/15 Overview: Added automatically from request for surgery [id number] Rectal bleeding 02/25/2017 11/02/2019 Overview: Added automatically from request for surgery [id number] Elbow pain, right 12/17/2016 11/02/2019 Overview: Has [...] of this encounter (statuses as of 10/24/2021) [facility]10[facility] of Past illness Narrative* Problem Noted Date Resolved Date Epicondylitis, lateral, left 02/23/2018 Overview: Added automatically from request for surgery [id number] Controlled type 2 diabetes m ellitus without complication, without long-term current use of insulin 12/13/2017 06/29/2018 Right elbow pain 03/11/2017 11/02/2019 Overview: Added automatically from request for surgery [id number] Right lateral epicondylitis 03/11/201710/15 Overview: Added automatically from request for surgery [id number] Rectal bleeding 02/25/2017 11/02/2019 Overview: Added automatically from request for surgery [id number] Elbow pain, right 12/17/2016 11/02/2019 Overview: Has [...] of this encounter (statuses as of 12/19/2021) [facility] of Past illness Narrative* Problem Noted Date Resolved Date Epicondylitis, lateral, left 02/23/2018 Overview: Added automatically from request for surgery [id number] Controlled type 2 diabetes m ellitus without complication, without long-term current use of insulin 12/13/2017 06/29/2018 Right elbow pain 03/11/2017 11/02/2019 Overview: Added automatically from request for surgery [id number] Right lateral epicondylitis 03/11/201710/15 Overview: Added automatically from request for surgery [id number] Rectal bleeding 02/25/2017 11/02/2019 Overview: Added automatically from request for surgery [id number] Elbow pain, right 12/17/2016 11/02/2019 Overview: Has [...] of this encounter (statuses as of 12/19/2021) [facility] of Past illness Narrative* Problem Noted Date Resolved Date Epicondylitis, lateral, left 02/23/2018 Overview: Added automatically from request for surgery [id number] Controlled type 2 diabetes m ellitus without complication, without long-term current use of insulin 12/13/2017 06/29/2018 Right elbow pain 03/11/2017 11/02/2019 Overview: Added automatically from request for surgery [id number] Right lateral epicondylitis 03/11/201710/15 Overview: Added automatically from request for surgery [id number] Rectal bleeding 02/25/2017 11/02/2019 Overview: Added automatically from request for surgery [id number] Elbow pain, right 12/17/2016 11/02/2019 Overview: Has [...] of this encounter (statuses as of 12/22/2021) [facility] of Past illness Narrative* Problem Noted Date Resolved Date Epicondylitis, lateral, left 02/23/2018 Overview: Added automatically from request for surgery [id number] Controlled type 2 diabetes m rubinaitus without complication, without long-term current use of insulin 12/13/2017 06/29/2018 Right elbow pain 03/11/2017 11/02/2019 Overview: Added automatically from request for surgery [id number] Right lateral epicondylitis 03/11/201710/15 Overview: Added automatically from request for surgery [id number] Rectal bleeding 02/25/2017 11/02/2019 Overview: Added automatically from request for surgery [id number] Elbow pain, right 12/17/2016 11/02/2019 Overview: Has [...] of this encounter (statuses as of 12/24/2021) [facility] of [facility] illness Narrative* Problem Noted Date Resolved Date Epicondylitis, lateral, left 02/23/2018 Overview: Added automatically from request for surgery [id number] Controlled type 2 diabetes m brenden without complication, without long-term current use of insulin 12/13/2017 06/29/2018 Right elbow pain 03/11/2017 11/02/2019 Overview: Added automatically from request for surgery [id number] Right lateral epicondylitis 03/11/201710/15 Overview: Added automatically from request for surgery [id number] Rectal bleeding 02/25/2017 11/02/2019 Overview: Added automatically from request for surgery [id number] Elbow pain, right 12/17/2016 11/02/2019 Overview: Has [...] of this encounter (statuses as of 01/26/2022) [facility] [facility] History of Past illness Narrative* Problem Noted Date Resolved Date Epicondylitis, lateral, left 02/23/2018 Overview: Added automatically from request for surgery [id number] Controlled type 2 diabetes m ellitus without complication, without long-term current use of insulin 12/13/2017 06/29/2018 Right elbow pain 03/11/2017 11/02/2019 Overview: Added automatically from request for surgery [id number] Right lateral epicondylitis 03/11/201710/15 Overview: Added automatically from request for surgery [id number] Rectal bleeding 02/25/2017 11/02/2019 Overview: Added automatically from request for surgery [id number] Elbow pain, right 12/17/2016 11/02/2019 Overview: Has [...] of this encounter (statuses as of 02/02/2022) [facility]10-10-2018 History of Past illness Narrative* Problem Noted Date Resolved Date Epicondylitis, lateral, left 02/23/2018 Overview: Added automatically from request for surgery [id number] Controlled type 2 diabetes m ellitus without complication, without long-term current use of insulin 12/13/2017 06/29/2018 Right elbow pain 03/11/2017 11/02/2019 Overview: Added automatically from request for surgery [id number] Right lateral epicondylitis 03/11/201710/15 Overview: Added automatically from request for surgery [id number] Rectal bleeding 02/25/2017 11/02/2019 Overview: Added automatically from request for surgery [id number] Elbow pain, right 12/17/2016 11/02/2019 Overview: Has [...] of this encounter (statuses as of 02/04/2022) [facility]10[facility]10-[facility] History of Past illness Narrative* Problem Noted Date Resolved Date Epicondylitis, lateral, left 02/23/2018 Overview: Added automatically from request for surgery [id number] Controlled type 2 diabetes m ellitus without complication, without long-term current use of insulin 12/13/2017 06/29/2018 Right elbow pain 03/11/2017 11/02/2019 Overview: Added automatically from request for surgery [id number] Right lateral epicondylitis 03/11/201710/15 Overview: Added automatically from request for surgery [id number] Rectal bleeding 02/25/2017 11/02/2019 Overview: Added automatically from request for surgery [id number] Elbow pain, right 12/17/2016 11/02/2019 Overview: Has [...] of this encounter (statuses as of 02/20/2022) [facility]10[facility]10[facility] History of Past illness Narrative* Problem Noted Date Resolved Date Epicondylitis, lateral, left 02/23/2018 Overview: Added automatically from request for surgery [id number] Controlled type 2 diabetes m ellitus without complication, without long-term current use of insulin 12/13/2017 06/29/2018 Right elbow pain 03/11/2017 11/02/2019 Overview: Added automatically from request for surgery [id number] Right lateral epicondylitis 03/11/201710/15 Overview: Added automatically from request for surgery [id number] Rectal bleeding 02/25/2017 11/02/2019 Overview: Added automatically from request for surgery [id number] Elbow pain, right 12/17/2016 11/02/2019 Overview: Has [...] of this encounter (statuses as of 03/10/2022) [facility]10-10-2018 History of Past illness Narrative* Problem Noted Date Resolved Date Epicondylitis, lateral, left 02/23/2018 Overview: Added automatically from request for surgery [id number] Controlled type 2 diabetes m rubinaitus without complication, without long-term current use of insulin 12/13/2017 06/29/2018 Right elbow pain 03/11/2017 11/02/2019 Overview: Added automatically from request for surgery [id number] Right lateral epicondylitis 03/11/201710/15 Overview: Added automatically from request for surgery [id number] Rectal bleeding 02/25/2017 11/02/2019 Overview: Added automatically from request for surgery [id number] Elbow pain, right 12/17/2016 11/02/2019 Overview: Has [...] of this encounter (statuses as of 03/20/2022) [facility]10-10-2018 History of Past illness Narrative* Problem Noted Date Resolved Date Epicondylitis, lateral, left 02/23/2018 Overview: Added automatically from request for surgery [id number] Controlled type 2 diabetes m bren[place] without complication, without long-term current use of insulin 12/13/2017 06/29/2018 Right elbow pain 03/11/2017 11/02/2019 Overview: Added automatically from request for surgery [id number] Right lateral epicondylitis 03/11/201710/15 Overview: Added automatically from request for surgery [id number] Rectal bleeding 02/25/2017 11/02/2019 Overview: Added automatically from request for surgery [id number] Elbow pain, right 12/17/2016 11/02/2019 Overview: Has [...] of this encounter (statuses as of 03/25/2022) [facility]10-10-2018 History of Past illness Narrative* Problem Noted Date Resolved Date Epicondylitis, lateral, left 02/23/2018 Overview: Added automatically from request for surgery [id number] Controlled type 2 diabetes m ellitus without complication, without long-term current use of insulin 12/13/2017 06/29/2018 Right elbow pain 03/11/2017 11/02/2019 Overview: Added automatically from request for surgery [id number] Right lateral epicondylitis 03/11/201710/15 Overview: Added automatically from request for surgery [id number] Rectal bleeding 02/25/2017 11/02/2019 Overview: Added automatically from request for surgery [id number] Elbow pain, right 12/17/2016 11/02/2019 Overview: Has [...] of this encounter (statuses as of 04/08/2022) [facility]10-10-2018 History of Past illness Narrative* Problem Noted Date Resolved Date Epicondylitis, lateral, left 02/23/2018 Overview: Added automatically from request for surgery [id number] Controlled type 2 diabetes m ellitus without complication, without long-term current use of insulin 12/13/2017 06/29/2018 Right elbow pain 03/11/2017 11/02/2019 Overview: Added automatically from request for surgery [id number] Right lateral epicondylitis 03/11/201710/15 Overview: Added automatically from request for surgery [id number] Rectal bleeding 02/25/2017 11/02/2019 Overview: Added automatically from request for surgery [id number] Elbow pain, right 12/17/2016 11/02/2019 Overview: Has [...] of this encounter (statuses as of 04/13/2022) [facility]10-[facility]2018 History of Past illness Narrative* Problem Noted Date Resolved Date Epicondylitis, lateral, left 02/23/2018 Overview: Added automatically from request for surgery [id number] Controlled type 2 diabetes m ellitus without complication, without long-term current use of insulin 12/13/2017 06/29/2018 Right elbow pain 03/11/2017 11/02/2019 Overview: Added automatically from request for surgery [id number] Right lateral epicondylitis 03/11/201710/15 Overview: Added automatically from request for surgery [id number] Rectal bleeding 02/25/2017 11/02/2019 Overview: Added automatically from request for surgery [id number] Elbow pain, right 12/17/2016 11/02/2019 Overview: Has [...] of this encounter (statuses as of 04/15/2022) [facility]10[facility] History of Past illness Narrative* Problem Noted Date Resolved Date Epicondylitis, lateral, left 02/23/2018 Overview: Added automatically from request for surgery [id number] Controlled type 2 diabetes m ellitus without complication, without long-term current use of insulin 12/13/2017 06/29/2018 Right elbow pain 03/11/2017 11/02/2019 Overview: Added automatically from request for surgery [id number] Right lateral epicondylitis 03/11/201710/15 Overview: Added automatically from request for surgery [id number] Rectal bleeding 02/25/2017 11/02/2019 Overview: Added automatically from request for surgery [id number] Elbow pain, right 12/17/2016 11/02/2019 Overview: Has [...] of this encounter (statuses as of 04/15/2022) [facility]10-10[facility]2018 History of Past illness Narrative* Problem Noted Date Resolved Date Epicondylitis, lateral, left 02/23/2018 Overview: Added automatically from request for surgery [id number] Controlled type 2 diabetes m ellitus without complication, without long-term current use of insulin 12/13/2017 06/29/2018 Right elbow pain 03/11/2017 11/02/2019 Overview: Added automatically from request for surgery [id number] Right lateral epicondylitis 03/11/201710/15 Overview: Added automatically from request for surgery [id number] Rectal bleeding 02/25/2017 11/02/2019 Overview: Added automatically from request for surgery [id number] Elbow pain, right 12/17/2016 11/02/2019 Overview: Has [...] of this encounter (statuses as of 05/19/2022) [facility]10-10-2018 History of Past illness Narrative* Problem Noted Date Resolved Date Epicondylitis, lateral, left 02/23/2018 Overview: Added automatically from request for surgery [id number] Controlled type 2 diabetes m ellitus without complication, without long-term current use of insulin 12/13/2017 06/29/2018 Right elbow pain 03/11/2017 11/02/2019 Overview: Added automatically from request for surgery [id number] Right lateral epicondylitis 03/11/201710/15 Overview: Added automatically from request for surgery [id number] Rectal bleeding 02/25/2017 11/02/2019 Overview: Added automatically from request for surgery [id number] Elbow pain, right 12/17/2016 11/02/2019 Overview: Has [...] of this encounter (statuses as of 05/20/2022) [facility]10-10-2018 History of Past illness Narrative* Problem Noted Date Resolved Date Epicondylitis, lateral, left 02/23/2018 Overview: Added automatically from request for surgery [id number] Controlled type 2 diabetes m rubinaitus without complication, without long-term current use of insulin 12/13/2017 06/29/2018 Right elbow pain 03/11/2017 11/02/2019 Overview: Added automatically from request for surgery [id number] Right lateral epicondylitis 03/11/201710/15 Overview: Added automatically from request for surgery [id number] Rectal bleeding 02/25/2017 11/02/2019 Overview: Added automatically from request for surgery [id number] Elbow pain, right 12/17/2016 11/02/2019 Overview: Has [...] of this encounter (statuses as of 05/20/2022) [facility]10-[facility]2018 History of Past illness Narrative* Problem Noted Date Resolved Date Epicondylitis, lateral, left 02/23/2018 Overview: Added automatically from request for surgery [id number] Controlled type 2 diabetes m ellitus without complication, without long-term current use of insulin 12/13/2017 06/29/2018 Right elbow pain 03/11/2017 11/02/2019 Overview: Added automatically from request for surgery [id number] Right lateral epicondylitis 03/11/201710/15 Overview: Added automatically from request for surgery [id number] Rectal bleeding 02/25/2017 11/02/2019 Overview: Added automatically from request for surgery [id number] Elbow pain, right 12/17/2016 11/02/2019 Overview: Has [...] of this encounter (statuses as of 05/21/2022) [facility]10-10-2018 History of Past illness Narrative* Problem Noted Date Resolved Date Epicondylitis, lateral, left 02/23/2018 Overview: Added automatically from request for surgery [id number] Controlled type 2 diabetes m ellitus without complication, without long-term current use of insulin 12/13/2017 06/29/2018 Right elbow pain 03/11/2017 11/02/2019 Overview: Added automatically from request for surgery [id number] Right lateral epicondylitis 03/11/201710/15 Overview: Added automatically from request for surgery [id number] Rectal bleeding 02/25/2017 11/02/2019 Overview: Added automatically from request for surgery [id number] Elbow pain, right 12/17/2016 11/02/2019 Overview: Has severe elbow pain, she is seeing Dr. Blutn in a short while Second degree hemorrhoids [...] of this encounter (statuses as of 05/22/2022) [facility]10[facility] History of Past illness Narrative* Problem Noted Date Resolved Date Epicondylitis, lateral, left 02/23/2018 Overview: Added automatically from request for surgery [id number] Controlled type 2 diabetes m ellitus without complication, without long-term current use of insulin 12/13/2017 06/29/2018 Right elbow pain 03/11/2017 11/02/2019 Overview: Added automatically from request for surgery [id number] Right lateral epicondylitis 03/11/201710/15 Overview: Added automatically from request for surgery [id number] Rectal bleeding 02/25/2017 11/02/2019 Overview: Added automatically from request for surgery [id number] Elbow pain, right 12/17/2016 11/02/2019 Overview: Has [...] of this encounter (statuses as of 05/23/2022) [facility]10-10-2018 History of Past illness Narrative* Problem Noted Date Resolved Date Epicondylitis, lateral, left 02/23/2018 Overview: Added automatically from request for surgery [id number] Controlled type 2 diabetes m ellitus without complication, without long-term current use of insulin 12/13/2017 06/29/2018 Right elbow pain 03/11/2017 11/02/2019 Overview: Added automatically from request for surgery [id number] Right lateral epicondylitis 03/11/201710/15 Overview: Added automatically from request for surgery [id number] Rectal bleeding 02/25/2017 11/02/2019 Overview: Added automatically from request for surgery [id number] Elbow pain, right 12/17/2016 11/02/2019 Overview: Has [...] of this encounter (statuses as of 05/25/2022) [facility]10-10-2018 History of Past illness Narrative* Problem Noted Date Resolved Date Epicondylitis, lateral, left 02/23/2018 Overview: Added automatically from request for surgery [id number] Controlled type 2 diabetes m ellitus without complication, without long-term current use of insulin 12/13/2017 06/29/2018 Right elbow pain 03/11/2017 11/02/2019 Overview: Added automatically from request for surgery [id number] Right lateral epicondylitis 03/11/201710/15 Overview: Added automatically from request for surgery [id number] Rectal bleeding 02/25/2017 11/02/2019 Overview: Added automatically from request for surgery [id number] Elbow pain, right 12/17/2016 11/02/2019 Overview: Has [...] of this encounter (statuses as of 06/03/2022) [facility]10-10[facility]2018 History of Past illness Narrative* Problem Noted Date Resolved Date Epicondylitis, lateral, left 02/23/2018 Overview: Added automatically from request for surgery [id number] Controlled type 2 diabetes m ellitus without complication, without long-term current use of insulin 12/13/2017 06/29/2018 Right elbow pain 03/11/2017 11/02/2019 Overview: Added automatically from request for surgery [id number] Right lateral epicondylitis 03/11/201710/15 Overview: Added automatically from request for surgery [id number] Rectal bleeding 02/25/2017 11/02/2019 Overview: Added automatically from request for surgery [id number] Elbow pain, right 12/17/2016 11/02/2019 Overview: Has [...] of this encounter (statuses as of 06/10/2022) [facility]10[facility] History of Past illness Narrative* Problem Noted Date Resolved Date Epicondylitis, lateral, left 02/23/2018 Overview: Added automatically from request for surgery [id number] Controlled type 2 diabetes m ellitus without complication, without long-term current use of insulin 12/13/2017 06/29/2018 Right elbow pain 03/11/2017 11/02/2019 Overview: Added automatically from request for surgery [id number] Right lateral epicondylitis 03/11/201710/15 Overview: Added automatically from request for surgery [id number] Rectal bleeding 02/25/2017 11/02/2019 Overview: Added automatically from request for surgery [id number] Elbow pain, right 12/17/2016 11/02/2019 Overview: Has [...] of this encounter (statuses as of 06/17/2022) [facility]10-10-2018 History of Past illness Narrative* Problem Noted Date Resolved Date Epicondylitis, lateral, left 02/23/2018 Overview: Added automatically from request for surgery [id number] Controlled type 2 diabetes m ellitus without complication, without long-term current use of insulin 12/13/2017 06/29/2018 Right elbow pain 03/11/2017 11/02/2019 Overview: Added automatically from request for surgery [id number] Right lateral epicondylitis 03/11/201710/15 Overview: Added automatically from request for surgery [id number] Rectal bleeding 02/25/2017 11/02/2019 Overview: Added automatically from request for surgery [id number] Elbow pain, right 12/17/2016 11/02/2019 Overview: Has [...] of this encounter (statuses as of 06/18/2022) [facility]10[facility]10-2018 History of Past illness Narrative* Problem Noted Date Resolved Date Epicondylitis, lateral, left 02/23/2018 Overview: Added automatically from request for surgery [id number] Controlled type 2 diabetes m ellitus without complication, without long-term current use of insulin 12/13/2017 06/29/2018 Right elbow pain 03/11/2017 11/02/2019 Overview: Added automatically from request for surgery [id number] Right lateral epicondylitis 03/11/201710/15 Overview: Added automatically from request for surgery [id number] Rectal bleeding 02/25/2017 11/02/2019 Overview: Added automatically from request for surgery [id number] Elbow pain, right 12/17/2016 11/02/2019 Overview: Has [...] of this encounter (statuses as of 06/30/2022) [facility]10-10-2018 History of Past illness Narrative* Problem Noted Date Resolved Date Epicondylitis, lateral, left 02/23/2018 Overview: Added automatically from request for surgery [id number] Controlled type 2 diabetes m ellitus without complication, without long-term current use of insulin 12/13/2017 06/29/2018 Right elbow pain 03/11/2017 11/02/2019 Overview: Added automatically from request for surgery [id number] Right lateral epicondylitis 03/11/201710/15 Overview: Added automatically from request for surgery [id number] Rectal bleeding 02/25/2017 11/02/2019 Overview: Added automatically from request for surgery [id number] Elbow pain, right 12/17/2016 11/02/2019 Overview: Has [...] of this encounter (statuses as of 07/16/2022) [facility]10-10-2018 History of Past illness Narrative* Problem Noted Date Resolved Date Epicondylitis, lateral, left 02/23/2018 Overview: Added automatically from request for surgery [id number] Controlled type 2 diabetes m ellitus without complication, without long-term current use of insulin 12/13/2017 06/29/2018 Right elbow pain 03/11/2017 11/02/2019 Overview: Added automatically from request for surgery [id number] Right lateral epicondylitis 03/11/201710/15 Overview: Added automatically from request for surgery [id number] Rectal bleeding 02/25/2017 11/02/2019 Overview: Added automatically from request for surgery [id number] Elbow pain, right 12/17/2016 11/02/2019 Overview: Has [...] of this encounter (statuses as of 07/17/2022) [facility] History of Past illness Narrative* Problem Noted Date Resolved Date Epicondylitis, lateral, left 02/23/2018 Overview: Added automatically from request for surgery [id number] Controlled type 2 diabetes m ellitus without complication, without long-term current use of insulin 12/13/2017 06/29/2018 Right elbow pain 03/11/2017 11/02/2019 Overview: Added automatically from request for surgery [id number] Right lateral epicondylitis 03/11/201710/15 Overview: Added automatically from request for surgery [id number] Rectal bleeding 02/25/2017 11/02/2019 Overview: Added automatically from request for surgery [id number] Elbow pain, right 12/17/2016 11/02/2019 Overview: Has [...] of this encounter (statuses as of 07/17/2022) [facility] History of Past illness Narrative* Problem Noted Date Resolved Date Epicondylitis, lateral, left 02/23/2018 Overview: Added automatically from request for surgery [id number] Controlled type 2 diabetes m ellitus without complication, without long-term current use of insulin 12/13/2017 06/29/2018 Right elbow pain 03/11/2017 11/02/2019 Overview: Added automatically from request for surgery [id number] Right lateral epicondylitis 03/11/201710/15 Overview: Added automatically from request for surgery [id number] Rectal bleeding 02/25/2017 11/02/2019 Overview: Added automatically from request for surgery [id number] Elbow pain, right 12/17/2016 11/02/2019 Overview: Has [...] of this encounter (statuses as of 07/22/2022) [facility] History of Past illness Narrative* Problem Noted Date Resolved Date Epicondylitis, lateral, left 02/23/2018 Overview: Added automatically from request for surgery [id number] Controlled type 2 diabetes m ellitus without complication, without long-term current use of insulin 12/13/2017 06/29/2018 Right elbow pain 03/11/2017 11/02/2019 Overview: Added automatically from request for surgery [id number] Right lateral epicondylitis 03/11/201710/15 Overview: Added automatically from request for surgery [id number] Rectal bleeding 02/25/2017 11/02/2019 Overview: Added automatically from request for surgery [id number] Elbow pain, right 12/17/2016 11/02/2019 Overview: Has [...] of this encounter (statuses as of 08/13/2022) [facility] History of Past illness Narrative* Problem Noted Date Resolved Date Epicondylitis, lateral, left 02/23/2018 Overview: Added automatically from request for surgery [id number] Controlled type 2 diabetes m ellitus without complication, without long-term current use of insulin 12/13/2017 06/29/2018 Right elbow pain 03/11/2017 11/02/2019 Overview: Added automatically from request for surgery [id number] Right lateral epicondylitis 03/11/201710/15 Overview: Added automatically from request for surgery [id number] Rectal bleeding 02/25/2017 11/02/2019 Overview: Added automatically from request for surgery [id number] Elbow pain, right 12/17/2016 11/02/2019 Overview: Has [...] of this encounter (statuses as of 08/24/2022) [facility] History of Past illness Narrative* Problem Noted Date Resolved Date Epicondylitis, lateral, left 02/23/2018 Overview: Added automatically from request for surgery [id number] Controlled type 2 diabetes m ellitus without complication, without long-term current use of insulin 12/13/2017 06/29/2018 Right elbow pain 03/11/2017 11/02/2019 Overview: Added automatically from request for surgery [id number] Right lateral epicondylitis 03/11/201710/15 Overview: Added automatically from request for surgery [id number] Rectal bleeding 02/25/2017 11/02/2019 Overview: Added automatically from request for surgery [id number] Elbow pain, right 12/17/2016 11/02/2019 Overview: Has [...] of this encounter (statuses as of 08/27/2022) [facility] History of Past illness Narrative* Problem Noted Date Resolved Date Epicondylitis, lateral, left 02/23/2018 Overview: Added automatically from request for surgery [id number] Controlled type 2 diabetes m ellitus without complication, without long-term current use of insulin 12/13/2017 06/29/2018 Right elbow pain 03/11/2017 11/02/2019 Overview: Added automatically from request for surgery [id number] Right lateral epicondylitis 03/11/201710/15 Overview: Added automatically from request for surgery [id number] Rectal bleeding 02/25/2017 11/02/2019 Overview: Added automatically from request for surgery [id number] Elbow pain, right 12/17/2016 11/02/2019 Overview: Has [...] of this encounter (statuses as of 08/29/2022) [facility] History of Past illness Narrative* Problem Noted Date Resolved Date Epicondylitis, lateral, left 02/23/2018 Overview: Added automatically from request for surgery [id number] Controlled type 2 diabetes m ellitus without complication, without long-term current use of insulin 12/13/2017 06/29/2018 Right elbow pain 03/11/2017 11/02/2019 Overview: Added automatically from request for surgery [id number] Right lateral epicondylitis 03/11/201710/15 Overview: Added automatically from request for surgery [id number] Rectal bleeding 02/25/2017 11/02/2019 Overview: Added automatically from request for surgery [id number] Elbow pain, right 12/17/2016 11/02/2019 Overview: Has [...] of this encounter (statuses as of 09/04/2022) [facility] History of Past illness Narrative* Problem Noted Date Resolved Date Epicondylitis, lateral, left 02/23/2018 Overview: Added automatically from request for surgery [id number] Controlled type 2 diabetes m ellitus without complication, without long-term current use of insulin 12/13/2017 06/29/2018 Right elbow pain 03/11/2017 11/02/2019 Overview: Added automatically from request for surgery [id number] Right lateral epicondylitis 03/11/201710/15 Overview: Added automatically from request for surgery [id number] Rectal bleeding 02/25/2017 11/02/2019 Overview: Added automatically from request for surgery [id number] Elbow pain, right 12/17/2016 11/02/2019 Overview: Has [...] of this encounter (statuses as of 09/25/2022) [facility]10-10-2018 History of Past illness Narrative* Problem Noted Date Resolved Date Epicondylitis, lateral, left 02/23/2018 Overview: Added automatically from request for surgery [id number] Controlled type 2 diabetes m ellitus without complication, without long-term current use of insulin 12/13/2017 06/29/2018 Right elbow pain 03/11/2017 11/02/2019 Overview: Added automatically from request for surgery [id number] Right lateral epicondylitis 03/11/201710/15 Overview: Added automatically from request for surgery [id number] Rectal bleeding 02/25/2017 11/02/2019 Overview: Added automatically from request for surgery [id number] Elbow pain, right 12/17/2016 11/02/2019 Overview: Has [...] of this encounter (statuses as of 10/13/2022) [facility]10-10-2018 History of Past illness Narrative* Problem Noted Date Diagnosed Date Resolved Date Epicondylitis, lateral, left 02/23/2018 11/02/2019 Overview: Added automatically from request for surgery [id number] Controlled type 2 diabetes m ellitus without complication, without long-term current use of insulin 12/13/2017 06/29/2018 Right elbow pain 03/11/2017 11/02/2019 Overview: Added automatically from request for surgery [id number] Right lateral epicondylitis 03/11/2017 11/02/2019 Overview: Added automatically from request for surgery [id number] Rectal bleeding 02/25/2017 11/02/2019 Overview: Added automatically from request for surgery [id number] Elbow pain, right 12/17/2016 11/02/2019 Overview: Has [...] of this encounter (statuses as of 11/21/2022) [facility]10-10-2018 History of Past illness Narrative* Problem Noted Date Diagnosed Date Resolved Date Epicondylitis, lateral, left 02/23/2018 11/02/2019 Overview: Added automatically from request for surgery [id number] Controlled type 2 diabetes m ellitus without complication, without long-term current use of insulin 12/13/2017 06/29/2018 Right elbow pain 03/11/2017 11/02/2019 Overview: Added automatically from request for surgery [id number] Right lateral epicondylitis 03/11/2017 11/02/2019 Overview: Added automatically from request for surgery [id number] Rectal bleeding 02/25/2017 11/02/2019 Overview: Added automatically from request for surgery [id number] Elbow pain, right 12/17/2016 11/02/2019 Overview: Has [...] of this encounter (statuses as of 11/24/2022) [facility]10-10-2018 History of Past illness Narrative* Problem Noted Date Diagnosed Date Resolved Date Epicondylitis, lateral, left 02/23/2018 11/02/2019 Overview: Added automatically from request for surgery [id number] Controlled type 2 diabetes m ellitus without complication, without long-term current use of insulin 12/13/2017 06/29/2018 Right elbow pain 03/11/2017 11/02/2019 Overview: Added automatically from request for surgery [id number] Right lateral epicondylitis 03/11/2017 11/02/2019 Overview: Added automatically from request for surgery [id number] Rectal bleeding 02/25/2017 11/02/2019 Overview: Added automatically from request for surgery [id number] Elbow pain, right 12/17/2016 11/02/2019 Overview: Has [...] of this encounter (statuses as of 11/24/2022) [facility]10[facility]2018 History of Past illness Narrative* Problem Noted Date Diagnosed Date Resolved Date Epicondylitis, lateral, left 02/23/2018 11/02/2019 Overview: Added automatically from request for surgery [id number] Controlled type 2 diabetes m ellitus without complication, without long-term current use of insulin 12/13/2017 06/29/2018 Right elbow pain 03/11/2017 11/02/2019 Overview: Added automatically from request for surgery [id number] Right lateral epicondylitis 03/11/2017 11/02/2019 Overview: Added automatically from request for surgery [id number] Rectal bleeding 02/25/2017 11/02/2019 Overview: Added automatically from request for surgery [id number] Elbow pain, right 12/17/2016 11/02/2019 Overview: Has [...] of this encounter (statuses as of 12/03/2022) [facility] History of Past illness Narrative* Problem Noted Date Diagnosed Date Resolved Date Epicondylitis, lateral, left 02/23/2018 11/02/2019 Overview: Added automatically from request for surgery [id number] Controlled type 2 diabetes m ellitus without complication, without long-term current use of insulin 12/13/2017 06/29/2018 Right elbow pain 03/11/2017 11/02/2019 Overview: Added automatically from request for surgery [id number] Right lateral epicondylitis 03/11/2017 11/02/2019 Overview: Added automatically from request for surgery [id number] Rectal bleeding 02/25/2017 11/02/2019 Overview: Added automatically from request for surgery [id number] Elbow pain, right 12/17/2016 11/02/2019 Overview: Has [...] of this encounter (statuses as of 12/11/2022) [facility] History of Past illness Narrative* Problem Noted Date Diagnosed Date Resolved Date Epicondylitis, lateral, left 02/23/2018 11/02/2019 Overview: Added automatically from request for surgery [id number] Controlled type 2 diabetes m ellitus without complication, without long-term current use of insulin 12/13/2017 06/29/2018 Right elbow pain 03/11/2017 11/02/2019 Overview: Added automatically from request for surgery [id number] Right lateral epicondylitis 03/11/2017 11/02/2019 Overview: Added automatically from request for surgery [id number] Rectal bleeding 02/25/2017 11/02/2019 Overview: Added automatically from request for surgery [id number] Elbow pain, right 12/17/2016 11/02/2019 Overview: Has [...] of this encounter (statuses as of 12/12/2022) [facility]10[facility]-2018 History of Past illness Narrative* Problem Noted Date Diagnosed Date Resolved Date Epicondylitis, lateral, left 02/23/2018 11/02/2019 Overview: Added automatically from request for surgery [id number] Controlled type 2 diabetes m [place] without complication, without long-term current use of insulin 12/13/2017 06/29/2018 Right elbow pain 03/11/2017 11/02/2019 Overview: Added automatically from request for surgery [id number] Right lateral epicondylitis 03/11/2017 11/02/2019 Overview: Added automatically from request for surgery [id number] Rectal bleeding 02/25/2017 11/02/2019 Overview: Added automatically from request for surgery [id number] Elbow pain, right 12/17/2016 11/02/2019 Overview: Has [...] of this encounter (statuses as of 12/21/2022) [facility]10-10-2018 History of Past illness Narrative* Problem Noted Date Diagnosed Date Resolved Date Epicondylitis, lateral, left 02/23/2018 11/02/2019 Overview: Added automatically from request for surgery [id number] Controlled type 2 diabetes m ellitus without complication, without long-term current use of insulin 12/13/2017 06/29/2018 Right elbow pain 03/11/2017 11/02/2019 Overview: Added automatically from request for surgery [id number] Right lateral epicondylitis 03/11/2017 11/02/2019 Overview: Added automatically from request for surgery [id number] Rectal bleeding 02/25/2017 11/02/2019 Overview: Added automatically from request for surgery [id number] Elbow pain, right 12/17/2016 11/02/2019 Overview: Has [...] of this encounter (statuses as of 12/21/2022) [facility]10-10-2018 History of Past illness Narrative* Problem Noted Date Diagnosed Date Resolved Date Epicondylitis, lateral, left 02/23/2018 11/02/2019 Overview: Added automatically from request for surgery [id number] Controlled type 2 diabetes m ellitus without complication, without long-term current use of insulin 12/13/2017 06/29/2018 Right elbow pain 03/11/2017 11/02/2019 Overview: Added automatically from request for surgery [id number] Right lateral epicondylitis 03/11/2017 11/02/2019 Overview: Added automatically from request for surgery [id number] Rectal bleeding 02/25/2017 11/02/2019 Overview: Added automatically from request for surgery [id number] Elbow pain, right 12/17/2016 11/02/2019 Overview: Has [...] of this encounter (statuses as of 01/01/2023) [facility]10-10-2018 History of Past illness Narrative* Problem Noted Date Diagnosed Date Resolved Date Epicondylitis, lateral, left 02/23/2018 11/02/2019 Overview: Added automatically from request for surgery [id number] Controlled type 2 diabetes m ellitus without complication, without long-term current use of insulin 12/13/2017 06/29/2018 Right elbow pain 03/11/2017 11/02/2019 Overview: Added automatically from request for surgery [id number] Right lateral epicondylitis 03/11/2017 11/02/2019 Overview: Added automatically from request for surgery [id number] Rectal bleeding 02/25/2017 11/02/2019 Overview: Added automatically from request for surgery [id number] Elbow pain, right 12/17/2016 11/02/2019 Overview: Has [...] of this encounter (statuses as of 01/04/2023) [facility]2018 History of Past illness Narrative* Problem Noted Date Diagnosed Date Resolved Date Epicondylitis, lateral, left 02/23/2018 11/02/2019 Overview: Added automatically from request for surgery [id number] Right elbow pain 03/11/2017 11/02/2019 Overview: Added automatically from request for surgery [id number] Right lateral epicondylitis 03/11/2017 11/02/2019 Overview: Added automatically from request for surgery [id number] Rectal bleeding 02/25/2017 11/02/2019 Overview: Added automatically from request for surgery [id number] Elbow pain, right 12/17/2016 11/02/2019 Overview: Has [...] of this encounter (statuses as of 03/06/2023) [facility]10-10-2018 History of Past illness Narrative* Problem Noted Date Diagnosed Date Resolved Date Epicondylitis, lateral, left 02/23/2018 11/02/2019 Overview: Added automatically from request for surgery [id number] Right elbow pain 03/11/2017 11/02/2019 Overview: Added automatically from request for surgery [id number] Right lateral epicondylitis 03/11/2017 11/02/2019 Overview: Added automatically from request for surgery [id number] Rectal bleeding 02/25/2017 11/02/2019 Overview: Added automatically from request for surgery [id number] Elbow pain, right 12/17/2016 11/02/2019 Overview: Has [...] of this encounter (statuses as of 03/21/2023) [facility]10-10-2018 History of Past illness Narrative* Problem Noted Date Diagnosed Date Resolved Date Epicondylitis, lateral, left 02/23/2018 11/02/2019 Overview: Added automatically from request for surgery [id number] Right elbow pain 03/11/2017 11/02/2019 Overview: Added automatically from request for surgery [id number] Right lateral epicondylitis 03/11/2017 11/02/2019 Overview: Added automatically from request for surgery [id number] Rectal bleeding 02/25/2017 11/02/2019 Overview: Added automatically from request for surgery [id number] Elbow pain, right 12/17/2016 11/02/2019 Overview: Has [...] of this encounter (statuses as of 03/23/2023) [facility]10-10-2018 History of Past illness Narrative* Problem Noted Date Diagnosed Date Resolved Date Epicondylitis, lateral, left 02/23/2018 11/02/2019 Overview: Added automatically from request for surgery [id number] Right elbow pain 03/11/2017 11/02/2019 Overview: Added automatically from request for surgery [id number] Right lateral epicondylitis 03/11/2017 11/02/2019 Overview: Added automatically from request for surgery [id number] Rectal bleeding 02/25/2017 11/02/2019 Overview: Added automatically from request for surgery [id number] Elbow pain, right 12/17/2016 11/02/2019 Overview: Has [...] of this encounter (statuses as of 04/09/2023) [facility]10-10-2018 History of Past illness Narrative* Problem Noted Date Diagnosed Date Resolved Date Epicondylitis, lateral, left 02/23/2018 11/02/2019 Overview: Added automatically from request for surgery [id number] Right elbow pain 03/11/2017 11/02/2019 Overview: Added automatically from request for surgery [id number] Right lateral epicondylitis 03/11/2017 11/02/2019 Overview: Added automatically from request for surgery [id number] Rectal bleeding 02/25/2017 11/02/2019 Overview: Added automatically from request for surgery [id number] Elbow pain, right 12/17/2016 11/02/2019 Overview: Has [...] of this encounter (statuses as of 04/12/2023) [facility]10[facility]2018 History of Past illness Narrative* Problem Noted Date Diagnosed Date Resolved Date Epicondylitis, lateral, left 02/23/2018 11/02/2019 Overview: Added automatically from request for surgery [id number] Right elbow pain 03/11/2017 11/02/2019 Overview: Added automatically from request for surgery [id number] Right lateral epicondylitis 03/11/2017 11/02/2019 Overview: Added automatically from request for surgery [id number] Rectal bleeding 02/25/2017 11/02/2019 Overview: Added automatically from request for surgery [id number] Elbow pain, right 12/17/2016 11/02/2019 Overview: Has [...] of this encounter (statuses as of 04/17/2023) [facility]10[facility] History of Past illness Narrative* Problem Noted Date Diagnosed Date Resolved Date Epicondylitis, lateral, left 02/23/2018 11/02/2019 Overview: Added automatically from request for surgery [id number] Right elbow pain 03/11/2017 11/02/2019 Overview: Added automatically from request for surgery [id number] Right lateral epicondylitis 03/11/2017 11/02/2019 Overview: Added automatically from request for surgery [id number] Rectal bleeding 02/25/2017 11/02/2019 Overview: Added automatically from request for surgery [id number] Elbow pain, right 12/17/2016 11/02/2019 Overview: Has [...] of this encounter (statuses as of 04/20/2023) [facility]10[facility]2018 History of Past illness Narrative* Problem Noted Date Diagnosed Date Resolved Date Epicondylitis, lateral, left 02/23/2018 11/02/2019 Overview: Added automatically from request for surgery [id number] Right elbow pain 03/11/2017 11/02/2019 Overview: Added automatically from request for surgery [id number] Right lateral epicondylitis 03/11/2017 11/02/2019 Overview: Added automatically from request for surgery [id number] Rectal bleeding 02/25/2017 11/02/2019 Overview: Added automatically from request for surgery [id number] Elbow pain, right 12/17/2016 11/02/2019 Overview: Has [...] of this encounter (statuses as of 04/20/2023) [facility]10[facility] History of Past illness Narrative* Problem Noted Date Diagnosed Date Resolved Date Epicondylitis, lateral, left 02/23/2018 11/02/2019 Overview: Added automatically from request for surgery [id number] Right elbow pain 03/11/2017 11/02/2019 Overview: Added automatically from request for surgery [id number] Right lateral epicondylitis 03/11/2017 11/02/2019 Overview: Added automatically from request for surgery [id number] Rectal bleeding 02/25/2017 11/02/2019 Overview: Added automatically from request for surgery [id number] Elbow pain, right 12/17/2016 11/02/2019 Overview: Has [...] of this encounter (statuses as of 06/30/2023) [facility]10[facility]2018 History of Past illness Narrative* Problem Noted Date Diagnosed Date Resolved Date Epicondylitis, lateral, left 02/23/2018 11/02/2019 Overview: Added automatically from request for surgery [id number] Right elbow pain 03/11/2017 11/02/2019 Overview: Added automatically from request for surgery [id number] Right lateral epicondylitis 03/11/2017 11/02/2019 Overview: Added automatically from request for surgery [id number] Rectal bleeding 02/25/2017 11/02/2019 Overview: Added automatically from request for surgery [id number] Elbow pain, right 12/17/2016 11/02/2019 Overview: Has [...] of this encounter (statuses as of 06/30/2023) [facility]2018 History of Past illness Narrative* Problem Noted Date Diagnosed Date Resolved Date Epicondylitis, lateral, left 02/23/2018 11/02/2019 Overview: Added automatically from request for surgery [id number] Right elbow pain 03/11/2017 11/02/2019 Overview: Added automatically from request for surgery [id number] Right lateral epicondylitis 03/11/2017 11/02/2019 Overview: Added automatically from request for surgery [id number] Rectal bleeding 02/25/2017 11/02/2019 Overview: Added automatically from request for surgery [id number] Elbow pain, right 12/17/2016 11/02/2019 Overview: Has [...] of this encounter (statuses as of 07/09/2023) [facility] History of Past illness Narrative* Problem Noted Date Diagnosed Date Resolved Date Epicondylitis, lateral, left 02/23/2018 11/02/2019 Overview: Added automatically from request for surgery [id number] Right elbow pain 03/11/2017 11/02/2019 Overview: Added automatically from request for surgery [id number] Right lateral epicondylitis 03/11/2017 11/02/2019 Overview: Added automatically from request for surgery [id number] Rectal bleeding 02/25/2017 11/02/2019 Overview: Added automatically from request for surgery [id number] Elbow pain, right 12/17/2016 11/02/2019 Overview: Has [...] of this encounter (statuses as of 07/14/2023) [facility] History of Past illness Narrative* Problem Noted Date Diagnosed Date Resolved Date Epicondylitis, lateral, left 02/23/2018 11/02/2019 Overview: Added automatically from request for surgery [id number] Right elbow pain 03/11/2017 11/02/2019 Overview: Added automatically from request for surgery [id number] Right lateral epicondylitis 03/11/2017 11/02/2019 Overview: Added automatically from request for surgery [id number] Rectal bleeding 02/25/2017 11/02/2019 Overview: Added automatically from request for surgery [id number] Elbow pain, right 12/17/2016 11/02/2019 Overview: Has [...] of this encounter (statuses as of 07/16/2023) [facility] History of Past illness Narrative* Problem Noted Date Diagnosed Date Resolved Date Epicondylitis, lateral, left 02/23/2018 11/02/2019 Overview: Added automatically from request for surgery [id number] Right elbow pain 03/11/2017 11/02/2019 Overview: Added automatically from request for surgery [id number] Right lateral epicondylitis 03/11/2017 11/02/2019 Overview: Added automatically from request for surgery [id number] Rectal bleeding 02/25/2017 11/02/2019 Overview: Added automatically from request for surgery [id number] Elbow pain, right 12/17/2016 11/02/2019 Overview: Has [...] of this encounter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 adult Plantar fasciitis Plantar fascial fibromatosis Pre-operative examination- Primary Preoperative examination, unspecified Trigger thumb, right thumb Adjustment disorder with depressed mood Mild intermittent asthma with acute exacerbation Unspecified asthma, with exacerbation Bilateral lower extremity edema Edema BMI 50.0-59.9, adult ([facility]) Body Mass Index 50.0-59.9, adult [...] specified, unspecified location documented in this encounter [facility] note* Diagnosis Gastroesophageal reflux disease without esophagitis- Primary Esophageal reflux Elbow pain, right Pain in joint, upper arm Chest pain, unspecified type Tobacco use disorder Adjustment disorder with depressed mood BMI 50.0-59.9, adult ([facility]) Body Mass Index 50.0-59.9, adult Plantar fasciitis Plantar fascial fibromatosis Pre-operative examination- Primary Preoperative examination, unspecified Trigger thumb, right thumb Adjustment disorder with depressed mood Mild intermittent asthma with acute exacerbation Unspecified asthma, with exacerbation Bilateral lower extremity edema Edema BMI 50.0-59.9, adult ([facility]) Body Mass Index 50.0-59.9, adult Gastroesophageal reflux disease without esophagitis Esophageal reflux Other hyperlipidemia EAMON (obstructive sleep apnea) Obstructive sleep apnea (adult) (pediatric) Spinal stenosis, lumbar region, without neurogenic claudication Tobacco use disorder Hypothyroidism, unspecified type Prediabetes Other abnormal glucose History of 2019 novel coronavirus disease (COVID-19) Acute pain of right knee [facility] Diagnosis Gastroesophageal reflux disease without esophagitis- Primary Esophageal reflux Elbow pain, right Pain in joint, upper arm Chest pain, unspecified type Tobacco use disorder Adjustment disorder with depressed mood BMI 50.0-59.9, adult ([facility]) Body Mass Index 50.0-59.9, adult Plantar fasciitis Plantar fascial fibromatosis SOB (shortness of breath) Shortness of breath Pre-operative examination- Primary Preoperative examination, unspecified Trigger thumb, right thumb Adjustment disorder with depressed mood Mild intermittent asthma with acute exacerbation Unspecified asthma, with exacerbation Bilateral lower extremity edema Edema BMI 50.0-59.9, adult ([facility]) Body Mass Index 50.0-59.9, adult Gastroesophageal reflux disease without esophagitis Esophageal reflux Other hyperlipidemia EAMON (obstructive sleep apnea) Obstructive sleep apnea (adult) (pediatric) Spinal stenosis, lumbar region, without neurogenic claudication Tobacco use disorder Hypothyroidism, unspecified type Prediabetes Other abnormal glucose History of 2019 novel coronavirus disease (COVID-19) documented in [facility] Diagnosis Gastroesophageal reflux disease without esophagitis- Primary Esophageal reflux Elbow pain, right Pain in joint, upper arm Chest pain, unspecified type Tobacco use disorder Adjustment disorder with depressed mood BMI 50.0-59.9, adult ([facility]) Body Mass Index 50.0-59.9, adult Plantar fasciitis Plantar fascial fibromatosis Pre-operative examination- Primary Preoperative examination, unspecified Trigger thumb, right thumb Adjustment disorder with depressed mood Mild intermittent asthma with acute exacerbation Unspecified asthma, with exacerbation Bilateral lower extremity edema Edema BMI 50.0-59.9, adult ([facility]) Body Mass Index 50.0-59.9, adult Gastroesophageal reflux disease without esophagitis Esophageal reflux Other hyperlipidemia EAMON (obstructive sleep apnea) Obstructive sleep apnea (adult) (pediatric) Spinal stenosis, lumbar region, without neurogenic claudication Tobacco use disorder Hypothyroidism, unspecified type Prediabetes Other abnormal glucose History of 2019 novel coronavirus disease (COVID-19) Other hyperlipidemia documented in this encounter [facility] note* Diagnosis Gastroesophageal reflux disease without esophagitis- Primary Esophageal reflux Elbow pain, right Pain in joint, upper arm Chest pain, unspecified type Tobacco use disorder Adjustment disorder with depressed mood BMI 50.0-59.9, adult ([facility]) Body Mass Index 50.0-59.9, adult Plantar fasciitis Plantar fascial fibromatosis Pre-operative examination- Primary Preoperative examination, unspecified Trigger thumb, right thumb Adjustment disorder with depressed mood Mild intermittent asthma with acute exacerbation Unspecified asthma, with exacerbation Bilateral lower extremity edema Edema BMI 50.0-59.9, adult ([facility]) Body Mass Index 50.0-59.9, adult [...] asthma, with exacerbation [facility] Diagnosis Gastroesophageal reflux disease without esophagitis- Primary Esophageal reflux Elbow pain, right Pain in joint, upper arm Chest pain, unspecified type Tobacco use disorder Adjustment disorder with depressed mood BMI 50.0-59.9, adult ([facility]) Body Mass Index 50.0-59.9, adult Plantar fasciitis Plantar fascial fibromatosis Bacterial URI Exacerbation of asthma, unspecified asthma severity, unspecified whether persistent Pre-operative examination- Primary Preoperative examination, unspecified Trigger thumb, right thumb Adjustment disorder with depressed mood Mild intermittent asthma with acute exacerbation Unspecified asthma, with exacerbation Bilateral lower extremity edema Edema BMI 50.0-59.9, adult ([facility]) Body Mass Index 50.0-59.9, adult Gastroesophageal reflux disease without esophagitis Esophageal reflux Other hyperlipidemia EAMON (obstructive sleep apnea) Obstructive sleep apnea (adult) (pediatric) Spinal stenosis, lumbar region, without neurogenic claudication Tobacco use disorder Hypothyroidism, unspecified type Prediabetes Other abnormal glucose History of 2019 novel coronavirus disease (COVID-19) [facility]* Diagnosis Gastroesophageal reflux disease without esophagitis- Primary Esophageal reflux Elbow pain, right Pain in joint, upper arm Chest pain, unspecified type Tobacco use disorder Adjustment disorder with depressed mood BMI 50.0-59.9, adult ([facility]) Body Mass Index 50.0-59.9, adult Plantar fasciitis Plantar fascial fibromatosis SOB (shortness of breath) Shortness of breath Pre-operative examination- Primary Preoperative examination, unspecified Trigger thumb, right thumb Adjustment disorder with depressed mood Mild intermittent asthma with acute exacerbation Unspecified asthma, with exacerbation Bilateral lower extremity edema Edema BMI 50.0-59.9, adult ([facility]) Body Mass Index 50.0-59.9, adult Gastroesophageal reflux disease without esophagitis Esophageal reflux Other hyperlipidemia EAMON (obstructive sleep apnea) Obstructive sleep apnea (adult) (pediatric) Spinal stenosis, lumbar region, without neurogenic claudication Tobacco use disorder Hypothyroidism, unspecified type Prediabetes Other abnormal glucose History of 2019 novel coronavirus disease (COVID-19) documented in this encounter [facility] note* Diagnosis Gastroesophageal reflux disease without esophagitis- Primary Esophageal reflux Elbow pain, right Pain in joint, upper arm Chest pain, unspecified type Tobacco use disorder Adjustment disorder with depressed mood BMI 50.0-59.9, adult ([facility]) Body Mass Index 50.0-59.9, adult Plantar fasciitis Plantar fascial fibromatosis Pre-operative examination- Primary Preoperative examination, unspecified Trigger thumb, right thumb Adjustment disorder with depressed mood Mild intermittent asthma with acute exacerbation Unspecified asthma, with exacerbation Bilateral lower extremity edema Edema BMI 50.0-59.9, adult ([facility]) Body Mass Index 50.0-59.9, adult Gastroesophageal reflux disease without esophagitis Esophageal reflux Other hyperlipidemia EAMON (obstructive sleep apnea) Obstructive sleep apnea (adult) (pediatric) Spinal stenosis, lumbar region, without neurogenic claudication Tobacco use disorder Hypothyroidism, unspecified type Prediabetes Other abnormal glucose History of 2019 novel coronavirus disease (COVID-19) Uncontrolled asthma- Primary documented in this encounter [facility] note* Diagnosis Gastroesophageal reflux disease without esophagitis- Primary Esophageal reflux Elbow pain, right Pain in joint, upper arm Chest pain, unspecified type Tobacco use disorder Adjustment disorder with depressed mood BMI 50.0-59.9, adult ([facility]) Body Mass Index 50.0-59.9, adult Plantar fasciitis Plantar fascial fibromatosis Pre-operative examination- Primary Preoperative examination, unspecified Trigger thumb, right thumb Adjustment disorder with depressed mood Mild intermittent asthma with acute exacerbation Unspecified asthma, with exacerbation Bilateral lower extremity edema Edema BMI 50.0-59.9, adult ([facility]) Body Mass Index 50.0-59.9, adult [...] arterial blood gases documented in this encounter [facility] note* Diagnosis Gastroesophageal reflux disease without esophagitis- Primary Esophageal reflux Elbow pain, right Pain in joint, upper arm Chest pain, unspecified type Tobacco use disorder Adjustment disorder with depressed mood BMI 50.0-59.9, adult ([facility]) Body Mass Index 50.0-59.9, adult Plantar fasciitis Plantar fascial fibromatosis Pre-operative examination- Primary Preoperative examination, unspecified Trigger thumb, right thumb Adjustment disorder with depressed mood Mild intermittent asthma with acute exacerbation Unspecified asthma, with exacerbation Bilateral lower extremity edema Edema BMI 50.0-59.9, adult ([facility]) Body Mass Index 50.0-59.9, adult [...] right upper extremity documented in this encounter [facility] note* Diagnosis Gastroesophageal reflux disease without esophagitis- Primary Esophageal reflux Elbow pain, right Pain in joint, upper arm Chest pain, unspecified type Tobacco use disorder Adjustment disorder with depressed mood BMI 50.0-59.9, adult ([facility]) Body Mass Index 50.0-59.9, adult Plantar fasciitis Plantar fascial fibromatosis Pre-operative examination- Primary Preoperative examination, unspecified Trigger thumb, right thumb Adjustment disorder with depressed mood Mild intermittent asthma with acute exacerbation Unspecified asthma, with exacerbation Bilateral lower extremity edema Edema BMI 50.0-59.9, adult ([facility]) Body Mass Index 50.0-59.9, adult Gastroesophageal reflux disease without esophagitis Esophageal reflux Other hyperlipidemia EAMON (obstructive sleep apnea) Obstructive sleep apnea (adult) (pediatric) Spinal stenosis, lumbar region, without neurogenic claudication Tobacco use disorder Hypothyroidism, unspecified type Prediabetes Other abnormal glucose History of 2019 novel coronavirus disease (COVID-19) 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 ([facility])- Primary Aspergillosis EAMON (obstructive sleep apnea) Obstructive sleep apnea (adult) (pediatric) Uncontrolled asthma [facility]* Diagnosis Gastroesophageal reflux disease without esophagitis- Primary Esophageal reflux Elbow pain, right Pain in joint, upper arm Chest pain, unspecified type Tobacco use disorder Adjustment disorder with depressed mood BMI 50.0-59.9, adult ([facility]) Body Mass Index 50.0-59.9, adult Plantar fasciitis Plantar fascial fibromatosis Pre-operative examination- Primary Preoperative examination, unspecified Trigger thumb, right thumb Adjustment disorder with depressed mood Mild intermittent asthma with acute exacerbation Unspecified asthma, with exacerbation Bilateral lower extremity edema Edema BMI 50.0-59.9, adult ([facility]) Body Mass Index 50.0-59.9, adult Gastroesophageal reflux disease without esophagitis Esophageal reflux Other hyperlipidemia EAMON (obstructive sleep apnea) Obstructive sleep apnea (adult) (pediatric) Spinal stenosis, lumbar region, without neurogenic claudication Tobacco use disorder Hypothyroidism, unspecified type Prediabetes Other abnormal glucose History of 2019 novel coronavirus disease (COVID-19) Bilateral lower extremity edema Edema documented in this encounter [facility] note* Diagnosis Gastroesophageal reflux disease without esophagitis- Primary Esophageal reflux Elbow pain, right Pain in joint, upper arm Chest pain, unspecified type Tobacco use disorder Adjustment disorder with depressed mood BMI 50.0-59.9, adult ([facility]) Body Mass Index 50.0-59.9, adult Plantar fasciitis Plantar fascial fibromatosis Pre-operative examination- Primary Preoperative examination, unspecified Trigger thumb, right thumb Adjustment disorder with depressed mood Mild intermittent asthma with acute exacerbation Unspecified asthma, with exacerbation Bilateral lower extremity edema Edema BMI 50.0-59.9, adult ([facility]) Body Mass Index 50.0-59.9, adult [...] and subcutaneous tissue documented in this encounter [facility] note* Diagnosis Gastroesophageal reflux disease without esophagitis- Primary Esophageal reflux Elbow pain, right Pain in joint, upper arm Chest pain, unspecified type Tobacco use disorder Adjustment disorder with depressed mood BMI 50.0-59.9, adult ([facility]) Body Mass Index 50.0-59.9, adult Plantar fasciitis Plantar fascial fibromatosis Pre-operative examination- Primary Preoperative examination, unspecified Trigger thumb, right thumb Adjustment disorder with depressed mood Mild intermittent asthma with acute exacerbation Unspecified asthma, with exacerbation Bilateral lower extremity edema Edema BMI 50.0-59.9, adult ([facility]) Body Mass Index 50.0-59.9, adult Gastroesophageal reflux disease without esophagitis Esophageal reflux Other hyperlipidemia EAMON (obstructive sleep apnea) Obstructive sleep apnea (adult) (pediatric) Spinal stenosis, lumbar region, without neurogenic claudication Tobacco use disorder Hypothyroidism, unspecified type Prediabetes Other abnormal glucose History of 2019 novel coronavirus disease (COVID-19) Boil- Primary Carbuncle and furuncle of unspecified site [facility] Diagnosis Gastroesophageal reflux disease without esophagitis- Primary Esophageal reflux Elbow pain, right Pain in joint, upper arm Chest pain, unspecified type Tobacco use disorder Adjustment disorder with depressed mood BMI 50.0-59.9, adult ([facility]) Body Mass Index 50.0-59.9, adult Plantar fasciitis Plantar fascial fibromatosis Pre-operative examination- Primary Preoperative examination, unspecified Trigger thumb, right thumb Adjustment disorder with depressed mood Mild intermittent asthma with acute exacerbation Unspecified asthma, with exacerbation Bilateral lower extremity edema Edema BMI 50.0-59.9, adult ([facility]) Body Mass Index 50.0-59.9, adult [...] nonsurgical wound dressing [facility] Diagnosis Gastroesophageal reflux disease without esophagitis- Primary Esophageal reflux Elbow pain, right Pain in joint, upper arm Chest pain, unspecified type Tobacco use disorder Adjustment disorder with depressed mood BMI 50.0-59.9, adult ([facility]) Body Mass Index 50.0-59.9, adult Plantar fasciitis Plantar fascial fibromatosis Pre-operative examination- Primary Preoperative examination, unspecified Trigger thumb, right thumb Adjustment disorder with depressed mood Mild intermittent asthma with acute exacerbation Unspecified asthma, with exacerbation Bilateral lower extremity edema Edema BMI 50.0-59.9, adult ([facility]) Body Mass Index 50.0-59.9, adult Gastroesophageal reflux disease without esophagitis Esophageal reflux Other hyperlipidemia EAMON (obstructive sleep apnea) Obstructive sleep apnea (adult) (pediatric) Spinal stenosis, lumbar region, without neurogenic claudication Tobacco use disorder Hypothyroidism, unspecified type Prediabetes Other abnormal glucose History of 2019 novel coronavirus disease (COVID-19) 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 ([facility])- Primary Aspergillosis Mild intermittent asthma with acute exacerbation Unspecified asthma, with exacerbation Controlled type 2 diabetes mellitus without complication, without long-term current use of insulin ([facility]) Gastroesophageal reflux disease without esophagitis Esophageal reflux Morbid obesity with BMI of 50.0-59.9, adult ([facility]) Morbid obesity Encounter for immunization Need for other specified prophylactic vaccination against single bacterial disease Essential hypertension Unspecified essential hypertension Other hyperlipidemia [facility] Diagnosis Gastroesophageal reflux disease without esophagitis- Primary Esophageal reflux Elbow pain, right Pain in joint, upper arm Chest pain, unspecified type Tobacco use disorder Adjustment disorder with depressed mood BMI 50.0-59.9, adult ([facility]) Body Mass Index 50.0-59.9, adult Plantar fasciitis Plantar fascial fibromatosis Pre-operative examination- Primary Preoperative examination, unspecified Trigger thumb, right thumb Adjustment disorder with depressed mood Mild intermittent asthma with acute exacerbation Unspecified asthma, with exacerbation Bilateral lower extremity edema Edema BMI 50.0-59.9, adult ([facility]) Body Mass Index 50.0-59.9, adult Gastroesophageal reflux disease without esophagitis Esophageal reflux Other hyperlipidemia EAMON (obstructive sleep apnea) Obstructive sleep apnea (adult) (pediatric) Spinal stenosis, lumbar region, without neurogenic claudication Tobacco use disorder Hypothyroidism, unspecified type Prediabetes Other abnormal glucose History of 2019 novel coronavirus disease (COVID-19) Cough, unspecified type [facility] Diagnosis Gastroesophageal reflux disease without esophagitis- Primary Esophageal reflux Elbow pain, right Pain in joint, upper arm Chest pain, unspecified type Tobacco use disorder Adjustment disorder with depressed mood BMI 50.0-59.9, adult ([facility]) Body Mass Index 50.0-59.9, adult Plantar fasciitis Plantar fascial fibromatosis Pre-operative examination- Primary Preoperative examination, unspecified Trigger thumb, right thumb Adjustment disorder with depressed mood Mild intermittent asthma with acute exacerbation Unspecified asthma, with exacerbation Bilateral lower extremity edema Edema BMI 50.0-59.9, adult ([facility]) Body Mass Index 50.0-59.9, adult Gastroesophageal reflux disease without esophagitis Esophageal reflux Other hyperlipidemia EAMON (obstructive sleep apnea) Obstructive sleep apnea (adult) (pediatric) Spinal stenosis, lumbar region, without neurogenic claudication Tobacco use disorder Hypothyroidism, unspecified type Prediabetes Other abnormal glucose History of 2019 novel coronavirus disease (COVID-19) Cough, unspecified type documented in this encounter [facility] note* Diagnosis Gastroesophageal reflux disease without esophagitis- Primary Esophageal reflux Elbow pain, right Pain in joint, upper arm Chest pain, unspecified type Tobacco use disorder Adjustment disorder with depressed mood BMI 50.0-59.9, adult ([facility]) Body Mass Index 50.0-59.9, adult Plantar fasciitis Plantar fascial fibromatosis Pre-operative examination- Primary Preoperative examination, unspecified Trigger thumb, right thumb Adjustment disorder with depressed mood Mild intermittent asthma with acute exacerbation Unspecified asthma, with exacerbation Bilateral lower extremity edema Edema BMI 50.0-59.9, adult ([facility]) Body Mass Index 50.0-59.9, adult Gastroesophageal reflux disease without esophagitis Esophageal reflux Other hyperlipidemia EAMON (obstructive sleep apnea) Obstructive sleep apnea (adult) (pediatric) Spinal stenosis, lumbar region, without neurogenic claudication Tobacco use disorder Hypothyroidism, unspecified type Prediabetes Other abnormal glucose History of 2019 novel coronavirus disease (COVID-19) Mild persistent asthma without complication- Primary Unspecified asthma Morbid obesity ([facility]) Morbid obesity Chronic hypoxemic respiratory failure ([facility]) Chronic respiratory failure Lung nodule Solitary pulmonary nodule Cigarette smoker Tobacco use disorder documented in this encounter [facility] note* Diagnosis Gastroesophageal reflux disease without esophagitis- Primary Esophageal reflux Elbow pain, right Pain in joint, upper arm Chest pain, unspecified type Tobacco use disorder Adjustment disorder with depressed mood BMI 50.0-59.9, adult ([facility]) Body Mass Index 50.0-59.9, adult Plantar fasciitis Plantar fascial fibromatosis Pre-operative examination- Primary Preoperative examination, unspecified Trigger thumb, right thumb Adjustment disorder with depressed mood Mild intermittent asthma with acute exacerbation Unspecified asthma, with exacerbation Bilateral lower extremity edema Edema BMI 50.0-59.9, adult ([facility]) Body Mass Index 50.0-59.9, adult [...] long-term current use of insulin ([facility])- Primary Morbid obesity with BMI of 50.0-59.9, adult ([facility]) Morbid obesity documented in this encounter [facility] note* Diagnosis Gastroesophageal reflux disease without esophagitis- Primary Esophageal reflux Elbow pain, right Pain in joint, upper arm Chest pain, unspecified type Tobacco use disorder Adjustment disorder with depressed mood BMI 50.0-59.9, adult ([facility]) Body Mass Index 50.0-59.9, adult Plantar fasciitis Plantar fascial fibromatosis Pre-operative examination- Primary Preoperative examination, unspecified Trigger thumb, right thumb Adjustment disorder with depressed mood Mild intermittent asthma with acute exacerbation Unspecified asthma, with exacerbation Bilateral lower extremity edema Edema BMI 50.0-59.9, adult ([facility]) Body Mass Index 50.0-59.9, adult [...] cough Acute cough documented in this encounter [facility] note* Diagnosis Gastroesophageal reflux disease without esophagitis- Primary Esophageal reflux Elbow pain, right Pain in joint, upper arm Chest pain, unspecified type Tobacco use disorder Adjustment disorder with depressed mood BMI 50.0-59.9, adult ([facility]) Body Mass Index 50.0-59.9, adult Plantar fasciitis Plantar fascial fibromatosis Pre-operative examination- Primary Preoperative examination, unspecified Trigger thumb, right thumb Adjustment disorder with depressed mood Mild intermittent asthma with acute exacerbation Unspecified asthma, with exacerbation Bilateral lower extremity edema Edema BMI 50.0-59.9, adult ([facility]) Body Mass Index 50.0-59.9, adult Gastroesophageal reflux disease without esophagitis Esophageal reflux Other hyperlipidemia EAMON (obstructive sleep apnea) Obstructive sleep apnea (adult) (pediatric) Spinal stenosis, lumbar region, without neurogenic claudication Tobacco use disorder Hypothyroidism, unspecified type Prediabetes Other abnormal glucose History of 2019 novel coronavirus disease (COVID-19) Acute cough [facility] Diagnosis Gastroesophageal reflux disease without esophagitis- Primary Esophageal reflux Elbow pain, right Pain in joint, upper arm Chest pain, unspecified type Tobacco use disorder Adjustment disorder with depressed mood BMI 50.0-59.9, adult ([facility]) Body Mass Index 50.0-59.9, adult Plantar fasciitis Plantar fascial fibromatosis Pre-operative examination- Primary Preoperative examination, unspecified Trigger thumb, right thumb Adjustment disorder with depressed mood Mild intermittent asthma with acute exacerbation Unspecified asthma, with exacerbation Bilateral lower extremity edema Edema BMI 50.0-59.9, adult ([facility]) Body Mass Index 50.0-59.9, adult [...] long-term current use of insulin ([facility])- Primary Hypothyroidism, unspecified type documented in this encounter [facility] note* Diagnosis Gastroesophageal reflux disease without esophagitis- Primary Esophageal reflux Elbow pain, right Pain in joint, upper arm Chest pain, unspecified type Tobacco use disorder Adjustment disorder with depressed mood BMI 50.0-59.9, adult ([facility]) Body Mass Index 50.0-59.9, adult Plantar fasciitis Plantar fascial fibromatosis Pre-operative examination- Primary Preoperative examination, unspecified Trigger thumb, right thumb Adjustment disorder with depressed mood Mild intermittent asthma with acute exacerbation ([facility]) Unspecified asthma, with exacerbation Bilateral lower extremity edema Edema BMI 50.0-59.9, adult ([facility]) Body Mass Index 50.0-59.9, adult Gastroesophageal reflux disease without esophagitis Esophageal reflux Other hyperlipidemia EAMON (obstructive sleep apnea) Obstructive sleep apnea (adult) (pediatric) Spinal stenosis, lumbar region, without neurogenic claudication Tobacco use disorder Hypothyroidism, unspecified type Prediabetes Other abnormal glucose History of 2019 novel coronavirus disease (COVID-19) Chest pain, unspecified type Dyspnea, unspecified type Wheezing documented in this encounter [facility] note* Diagnosis Gastroesophageal reflux disease without esophagitis- Primary Esophageal reflux Elbow pain, right Pain in joint, upper arm Chest pain, unspecified type Tobacco use disorder Adjustment disorder with depressed mood BMI 50.0-59.9, adult ([facility]) Body Mass Index 50.0-59.9, adult Plantar fasciitis Plantar fascial fibromatosis Pre-operative examination- Primary Preoperative examination, unspecified Trigger thumb, right thumb Adjustment disorder with depressed mood Mild intermittent asthma with acute exacerbation (HCC) Unspecified asthma, with exacerbation Bilateral lower extremity edema Edema BMI 50.0-59.9, adult ([facility]) Body Mass Index 50.0-59.9, adult [...] unspecified type Wheezing [facility] Diagnosis Gastroesophageal reflux disease without esophagitis- Primary Esophageal reflux Elbow pain, right Pain in joint, upper arm Chest pain, unspecified type Tobacco use disorder Adjustment disorder with depressed mood BMI 50.0-59.9, adult ([facility]) Body Mass Index 50.0-59.9, adult Plantar fasciitis Plantar fascial fibromatosis Pre-operative examination- Primary Preoperative examination, unspecified Trigger thumb, right thumb Adjustment disorder with depressed mood Mild intermittent asthma with acute exacerbation (HCC) Unspecified asthma, with exacerbation Bilateral lower extremity edema Edema BMI 50.0-59.9, adult ([facility]) Body Mass Index 50.0-59.9, adult Gastroesophageal reflux disease without esophagitis Esophageal reflux Other hyperlipidemia EAMON (obstructive sleep apnea) Obstructive sleep apnea (adult) (pediatric) Spinal stenosis, lumbar region, without neurogenic claudication Tobacco use disorder Hypothyroidism, unspecified type Prediabetes Other abnormal glucose History of 2019 novel coronavirus disease (COVID-19) Hyperlipidemia Other and unspecified hyperlipidemia documented in this encounter [facility] note* Diagnosis Gastroesophageal reflux disease without esophagitis- Primary Esophageal reflux Elbow pain, right Pain in joint, upper arm Chest pain, unspecified type Tobacco use disorder Adjustment disorder with depressed mood BMI 50.0-59.9, adult ([facility]) Body Mass Index 50.0-59.9, adult [...] Abnormal coagulation profile [facility] Diagnosis Gastroesophageal reflux disease without esophagitis- Primary Esophageal reflux Elbow pain, right Pain in joint, upper arm Chest pain, unspecified type Tobacco use disorder Adjustment disorder with depressed mood BMI 50.0-59.9, adult ([facility]) Body Mass Index 50.0-59.9, adult Plantar fasciitis Plantar fascial fibromatosis Pre-operative examination- Primary Preoperative examination, unspecified Trigger thumb, right thumb Adjustment disorder with depressed mood Mild intermittent asthma with acute exacerbation (HCC) Unspecified asthma, with exacerbation Bilateral lower extremity edema Edema BMI 50.0-59.9, adult ([facility]) Body Mass Index 50.0-59.9, adult [...] Fatigue, unspecified type documented [facility]* Diagnosis Gastroesophageal reflux disease without esophagitis- Primary Esophageal reflux Elbow pain, right Pain in joint, upper arm Chest pain, unspecified type Tobacco use disorder Adjustment disorder with depressed mood BMI 50.0-59.9, adult ([facility]) Body Mass Index 50.0-59.9, adult Plantar fasciitis Plantar fascial fibromatosis Pre-operative examination- Primary Preoperative examination, unspecified Trigger thumb, right thumb Adjustment disorder with depressed mood Mild intermittent asthma with acute exacerbation (HCC) Unspecified asthma, with exacerbation Bilateral lower extremity edema Edema BMI 50.0-59.9, adult ([facility]) Body Mass Index 50.0-59.9, adult [...] long-term current use of insulin ([facility]) Morbid obesity with BMI of 50.0-59.9, adult ([facility]) Morbid obesity documented in [facility]* Diagnosis Gastroesophageal reflux disease without esophagitis- Primary Esophageal reflux Elbow pain, right Pain in joint, upper arm Chest pain, unspecified type Tobacco use disorder Adjustment disorder with depressed mood BMI 50.0-59.9, adult ([facility]) Body Mass Index 50.0-59.9, adult Plantar fasciitis Plantar fascial fibromatosis Pre-operative examination- Primary Preoperative examination, unspecified Trigger thumb, right thumb Adjustment disorder with depressed mood Mild intermittent asthma with acute exacerbation (HCC) Unspecified asthma, with exacerbation Bilateral lower extremity edema Edema BMI 50.0-59.9, adult ([facility]) Body Mass Index 50.0-59.9, adult [...] Cigarette smoker Tobacco use disorder Morbid obesity ([facility]) Morbid obesity Chronic hypoxemic respiratory failure (HCC) Chronic respiratory failure Lung nodule Solitary pulmonary nodule documented [facility]* Diagnosis Gastroesophageal reflux disease without esophagitis- Primary Esophageal reflux Elbow pain, right Pain in joint, upper arm Chest pain, unspecified type Tobacco use disorder Adjustment disorder with depressed mood BMI 50.0-59.9, adult ([facility]) Body Mass Index 50.0-59.9, adult Plantar fasciitis Plantar fascial fibromatosis Pre-operative examination- Primary Preoperative examination, unspecified Trigger thumb, right thumb Adjustment disorder with depressed mood Mild intermittent asthma with acute exacerbation (HCC) Unspecified asthma, with exacerbation Bilateral lower extremity edema Edema BMI 50.0-59.9, adult ([facility]) Body Mass Index 50.0-59.9, adult [...] and subcutaneous tissue [facility] Diagnosis Gastroesophageal reflux disease without esophagitis- Primary Esophageal reflux Elbow pain, right Pain in joint, upper arm Chest pain, unspecified type Tobacco use disorder Adjustment disorder with depressed mood BMI 50.0-59.9, adult ([facility]) Body Mass Index 50.0-59.9, adult Plantar fasciitis Plantar fascial fibromatosis Pre-operative examination- Primary Preoperative examination, unspecified Trigger thumb, right thumb Adjustment disorder with depressed mood Mild intermittent asthma with acute exacerbation (HCC) Unspecified asthma, with exacerbation Bilateral lower extremity edema Edema BMI 50.0-59.9, adult ([facility]) Body Mass Index 50.0-59.9, adult Gastroesophageal reflux disease without esophagitis Esophageal reflux Other hyperlipidemia EAMON (obstructive sleep apnea) Obstructive sleep apnea (adult) (pediatric) Spinal stenosis, lumbar region, without neurogenic claudication Tobacco use disorder Hypothyroidism, unspecified type Prediabetes Other abnormal glucose History of 2019 novel coronavirus disease (COVID-19) Encounter for screening mammogram for breast cancer documented [facility] this [facility] Diagnosis Gastroesophageal reflux disease without esophagitis- Primary Esophageal reflux Elbow pain, right Pain in joint, upper arm Chest pain, unspecified type Tobacco use disorder Adjustment disorder with depressed mood BMI 50.0-59.9, adult ([facility]) Body Mass Index 50.0-59.9, adult [...] of unspecified site [facility] Diagnosis Gastroesophageal reflux disease without esophagitis- [...] edema Edema BMI 50.0-59.9, adult ([facility]) Body Mass Index 50.0-59.9, adult Gastroesophageal reflux disease without esophagitis Esophageal reflux Other hyperlipidemia EAMON (obstructive sleep apnea) Obstructive sleep apnea (adult) (pediatric) Spinal stenosis, lumbar region, without neurogenic claudication Tobacco use disorder Hypothyroidism, unspecified type Prediabetes Other abnormal glucose History of 2019 novel coronavirus disease (COVID-19) Abscess- Primary Cellulitis and abscess of unspecified site Wound pain Open wound(s) (multiple) of unspecified site(s), without mention of complication [facility] No data available for this section [facility] Discharge instructionsAdditional Instructions Take the antibiotic 4 times a day for the next 7 days. Take this in addition to the doxycycline that you are already taking. Please follow the wound care instructions as discussed. If you develop fever, chills, nausea, vomiting, fatigue you need to return to the ED. Follow-up at your appointment tomorrow and Wednesday as planned. Your evaluation in the Emergency Department did not reveal any acute reason for admission. However, I want to emphasize that you may be early in the course of a disease process or illness even if it is not present. For this reason you should follow-up within 24 hours for reevaluation with either your primary care physician or if necessary back here in the Emergency Department. You should return to the Emergency Department immediately if your symptoms worsen or new symptoms develop.[facility] Work Phone: Progress note No data available for this section [facility] Reason for referral (narrative)* Diagnostic Procedure Only (Routine) - Pending Review Specialty Diagnoses / Procedures Referred By Sophia douglass Referred To Contact [facility] Diagnoses Encounter for screening mammogram for breast cancer Procedures JET SCREENING SCREENING MAMMOGRAPHY BI 2-VIEW BREAST INC CAD Babar Phillip MD [address] [place] [address] [facility] [address] [place] [address] Referral ID Status Reason Start Date Expiration Date Visits Requested Visits Authorized [id number] Pending Review Auto-Generat ed Referral 01/28/2022 02/27/2023 1 1 [facility] for referral (narrative)* Diagnostic Procedure Only (Routine) - Pending Review Specialty Diagnoses / Procedures Referred By Sophia douglass Referred To Contact [facility] IMAGING Diagnoses RUQ pain Nausea Epigastric pain Diarrhea, unspecified type Procedures US ABD RT UPPER QUADRANT US ABDOMINAL REAL TIME W/IMAGE LIMITED Caryn Lowery APRN.CNP [address] [place] [address] [facility] Referral ID Status Reason Start Date Expiration Date Visits Requested Visits Authorized [id number] Pending Review Auto-Generat ed Referral 03/25/2022 04/24/2023 1 1 [facility] for referral (narrative)* Outpatient Procedure (Routine) - Pending Review Specialty Diagnoses / Procedures Referred By Sophia douglass Referred To Contact [facility] Diagnoses Nausea Epigastric pain Decreased appetite Procedures EGD DIAGNOSTIC ESOPHAGOGASTRODUODENOS COPY TRANSORAL DIAGNOSTIC Kelli Mendenhall PA-C [address] [place] [address] [facility] [address] [address] Referral ID Status Reason Start Date Expiration Date Visits Requested Visits Authorized [id number] Pending Review Auto-Generat ed Referral 06/03/2022 06/03/2023 1 1 [facility] for referral (narrative)* Outpatient Procedure (Routine) - Pending Review Specialty Diagnoses / Procedures Referred By Contac t Referred To Contact [facility] Diagnoses Epigastric pain Nausea and vomiting, unspecified vomiting type Procedures EGD DIAGNOSTIC ESOPHAGOGASTRODUODENOSC OPY TRANSORAL DIAGNOSTIC Jared Lauren PA-C [facility] [address] [facility] [address] [address] Referral ID Status Reason Start Date Expiration Date Visits Requested Visits Authorized [id number] Pending Review Auto-Generat ed Referral 06/17/2022 06/17/2023 1 1 * Medication Prior Authorization - Closed Specialty Diagnoses / Procedures Referred By Sophia t Referred To Contact Diagnoses Rectal bleeding Diarrhea, unspecified type Jared Lauren PA-C [address] [place] [address] [place] [address] Referral ID Status Reason Start Date Expiration Date Visits Re quested Visits Authorized [id number] Closed 1 1 * Outpatient Procedure (Routine) - Pending Review Specialty Diagnoses / Procedures Referred By Contac t Referred To Contact [facility] Diagnoses Rectal bleeding Diarrhea, unspecified type Procedures COLONOSCOPY DIAGNOSTIC COLONOSCOPY FLX DX W/COLLJ SPEC WHEN PFRMD Jared Lauren PA-C [address] [facility] [place] [address] [facility] [place] [address] [place] [address] Referral ID Status Reason Start Date Expiration Date Visits Requested Visits Authorized [id number] Pending Review Auto-Generat ed Referral 06/17/2022 06/17/2023 1 1 [facility] for referral (narrative)* Outpatient Procedure (Routine) - Pending Review Specialty Diagnoses / Procedures Referred By Contac t Referred To Contact [facility] [place] Diagnoses Shortness of breath Chest pain, unspecified type Procedures ECHO ECHO TTHRC R-T 2D W/WOM-MODE COMPL SPEC&COLR D Caryn Lowery APRN.TAX REVENUE OFFICER [address] [place] [address] [address] Referral ID Status Reason Start Date Expiration Date Visits Requested Visits Authorized [id number] Pending Review Auto-Generat ed Referral 08/24/2022 08/24/2023 1 1 * Outpatient Procedure (Routine) - Authorized Specialty Diagnoses / Procedures Referred By Edwardac t Referred To Contact [facility] [place] Diagnoses Left leg swelling Left leg pain Procedures US LEG VEIN DVT UNL VAS LAB DUP-SCAN XTR VEINS UNILATERAL/LIMITED STUDY Caryn Lowery APRN.TAX REVENUE OFFICER [address] [place] [address] [address] Referral ID Status Reason Start Date Expiration Date Visits Requested Visits Authorized [id number] Authorized Auto-Generat ed Referral 08/24/2022 08/24/2023 1 1 [facility] for referral (narrative)* Diagnostic Procedure Only (Routine) - Pending Review Specialty Diagnoses / Procedures Referred By Sophia t Referred To Contact [facility] Diagnoses Encounter for screening mammogram for breast cancer Procedures JET SCREENING SCREENING MAMMOGRAPHY BI 2-VIEW BREAST INC Babar Islas MD [address] [place] [address] [facility] [address] [place] [address] Referral ID Status Reason Start Date Expiration Date Visits Requested Visits Authorized [id number] Pending Review Auto-Generat ed Referral 12/30/2022 01/29/2024 1 1 [facility] for referral (narrative)* Diagnostic Procedure Only (Routine) - Closed Specialty Diagnoses / Procedures Referred By Contac t Referred To Contact [facility] Diagnoses RUQ pain Nausea Epigastric pain Diarrhea, unspecified type Procedures US ABD RT UPPER QUADRANT US ABDOMINAL REAL TIME W/IMAGE LIMITED Caryn Lowery APRN.TAX REVENUE OFFICER [address] [place] [address] [place] [address] Referral ID Status Reason Start Date Expiration Date V isits Requested Visits Authorized [id number] Closed Auto-Generate d Referral 03/25/2022 04/24/2023 1 1 [facility] for referral (narrative)* Diagnostic Procedure Only (Urgent) - Authorized Specialty Diagnoses / Procedures Referred By Contac t Referred To Contact [facility] Diagnoses Epigastric pain Vomiting and diarrhea Procedures US ABD RIGHT UPPER QUADRANT US ABDOMINAL REAL TIME W/IMAGE LIMITED Caryn Lowery APRN.CNP [address] [place] [address] [place] [address] Referral ID Status Reason Start Date Expiration Date Visits Requested Visits Authorized [id number] Authorized Auto-Generat ed Referral 11/15/2023 12/14/2024 1 1 [facility] for referral (narrative)* Diagnostic Procedure Only (Routine) - New Request Specialty Diagnoses / Procedures Referred By Contac t Referred To Contact [facility] Diagnoses Encounter for screening mammogram for breast cancer Procedures JET SCREENING W ROXANNA SCREENING DIGITAL BREAST TOMOSYNTHESIS BI SCREENING MAMMOGRAPHY BI 2-VIEW BREAST INC Babar Islas MD [address] [place] [address] [facility] [address] [place] [address] Referral ID Status Reason Start Date Expiration Date Visits Requested Visits Authorized [id number] New Request Auto-Generat ed Referral 12/01/2023 12/30/2024 1 1 [facility] for referral (narrative)* Outpatient Procedure (Routine) - New Request Specialty Diagnoses / Procedures Referred By Contac t Referred To Contact [facility] Diagnoses Chest pain, unspecified type Shortness of breath Palpitations Procedures ECG COMPLETE ECG ROUTINE ECG W/LEAST 12 LDS W/I&R Caryn Lowery APRN.CNP [address] [place] [address] [facility] [place] [address] [place] [address] Referral ID Status Reason Start Date Expiration Date Visits Requested Visits Authorized [id number] New Request Auto-Generat ed Referral 01/03/2024 01/02/2025 1 1 [facility] for referral (narrative)* Diagnostic Procedure Only (Routine) - New Request Specialty Diagnoses / Procedures Referred By Contac t Referred To Contact XR IMAGING Diagnoses Right knee pain, unspecified chronicity Procedures XR KNEE GENERAL 4V AP BOTH/PA BOTH/LAT/MERC RIGHT RADIOLOGIC EXAM KNEE COMPLETE 4/MORE VIEWS Duran Blunt MD [address] [place] [address] [place] [address] Referral ID Status Reason Start Date Expiration Date Visits Requested Visits Authorized [id number] New Request Auto-Generat ed Referral 01/19/2024 02/17/2025 1 1 [facility] for referral (narrative)* Diagnostic Procedure Only (Urgent) - Closed Specialty Diagnoses / Procedures Referred By Contac t Referred To Contact [facility] Diagnoses Epigastric pain Vomiting and diarrhea Procedures US ABD RIGHT UPPER QUADRANT US ABDOMINAL REAL TIME W/IMAGE LIMITED Caryn Lowery APRN.TAX REVENUE OFFICER [address] [place] [address] [place] [address] Referral ID Status Reason Start Date Expiration Date V isits Requested Visits Authorized [id number] Closed Auto-Generate d Referral 11/15/2023 12/14/2024 1 1 [facility] for referral (narrative)* Diagnostic Procedure Only (Routine) - Closed Specialty Diagnoses / Procedures Referred By Contac t Referred To Contact XR IMAGING Diagnoses Acute pain of right knee Procedures XR KNEE GENERAL 4V AP BOTH/PA BOTH/LAT/MERC RIGHT RADIOLOGIC EXAM KNEE COMPLETE 4/MORE VIEWS Angelika Osborne APRN.TAX REVENUE OFFICER [address] [place] [address] [place] [address] Referral ID Status Reason Start Date Expiration Date V isits Requested Visits Authorized [id number] Closed Auto-Generate d Referral 05/13/2022 06/12/2023 1 1 [facility] for referral (narrative)* Outpatient Procedure (Routine) - New Request Specialty Diagnoses / Procedures Referred By Contac t Referred To Contact [facility] Diagnoses 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 right upper extremity Procedures EMG(NEURO/NI) NERVE CONDUCTION STUDIES 9-10 STUDIES Duran Blunt MD [address] [place] [address] [facility] [place] [address] [place] [address] Referral ID Status Reason Start Date Expiration Date Visits Requested Visits Authorized [id number] New Request Auto-Generat ed Referral 03/07/2025 1 1 [facility] for referral (narrative)No reason for referral [facility] Work Phone: Reason for visit Narrative* Diagnostic Procedure Only (Urgent) - Closed Specialty Diagnoses / Procedures Referred By Contac t Referred To Contact [facility] IMAGING Diagnoses Epigastric pain Vomiting and diarrhea Procedures US ABD RIGHT UPPER QUADRANT US ABDOMINAL REAL TIME W/IMAGE LIMITED Caryn Lowery OVERAGE SHORTAGE AND DAMAGE CLERK.TAX REVENUE OFFICER [address] [place] [address] [place] [address] Referral ID Status Reason Start Date Expiration Date V isits Requested Visits Authorized [id number] Closed Auto-Generate d Referral 11/15/2023 12/14/2024 1 1 [facility] for visit Narrative* Diagnostic Procedure Only (Routine) - Closed Specialty Diagnoses / Procedures Referred By Contac t Referred To Contact XR IMAGING Diagnoses Acute pain of right knee Procedures XR KNEE GENERAL 4V AP BOTH/PA BOTH/LAT/MERC RIGHT RADIOLOGIC EXAM KNEE COMPLETE 4/MORE VIEWS Angelika Osborne, OVERAGE SHORTAGE AND DAMAGE CLERK.TAX REVENUE OFFICER [address] [place] [address] [place] [address] Referral ID Status Reason Start Date Expiration Date V isits Requested Visits Authorized [id number] Closed Auto-Generate d Referral 05/13/2022 06/12/2023 1 1 [facility] note* Geraldine Calabrese: PERFORM Event Display: Patient Summary Documents Authored Date: [id number] [facility] Summary Purpose Family History No Family History Records Found Relationship Condition Age at Onset Recorded Date/T kathleen Not Specified Malignant neoplasm of cervix Unknown Arthritis Unknown Depression Unknown mother Cardiac disease Unknown father Hypertension Unknown Advance Directives No Advanced Directives Records FoundDocuments on File Type Date Recorded Patient Outpatient Psychiatrist Expl anation Advance Directive(s) Advance Directive(s) 07/02/2021 3:42 PM Advance Directive(s) 07/12/2019 3:17 PM Advance Directive(s) 07/12/2019 3:21 PM Advance Directive(s) 05/18/2018 12:00 PM Advance Directive(s) 04/15/2018 5:08 PM Advance Directive(s) 04/02/2017 10:58 AM Advance Directive(s) 03/02/2017 8:52 AM Advance Directive(s) 02/26/2017 1:59 PM Advance Directive Response Recorded Date/ Time Living Will No July 27, 2022 3:22pm Power of Grocery Specialist No July 27 3:22pm Advance Directive Response Recorded Date/ Time Living Will No July 27, 2022 2:22pm Power of Grocery Specialist No July 27 2:22pm Advance Directive Response Recorded Date/ Time Do you have a Healthcare Power of Grocery Specialist? No December 24, 2024 11:39pm Reason for Referral Specialty Diagnoses / Procedures Referred By Contac t Referred To Contact Gastroenterology Diagnoses Left lower quadrant abdominal pain Nausea Diarrhea, unspecified type Procedures CONSULT TO GASTROENTEROLOGY OFFICE/OUTPATIENT [facility] MDM 60-74 MINUTES Caryn Lowery APRN.TAX REVENUE OFFICER [address] [place] [address] Referral ID Status Reason Start Date Expiration Date Visits Requested Visits Authorized [id number] Authorized PCP Requested Referral 2 04/08/2023 1 1 Specialty Diagnoses / Procedures Referred By Contac t Referred To Contact CT IMAGING Diagnoses Left lower quadrant abdominal pain Procedures CT ABD/PEL W IVCON CT ABD & PELVIS W/CONTRAST Caryn Lowery APRN.TAX REVENUE OFFICER [address] [place] [address] Ct Imaging Referral ID Status Reason Start Date Expiration Date Visits Requested Visits Authorized [id number] Authorized Auto-Generat ed Referral 2 05/08/2022 1 [...] THERAPY MEDICAL NUTRITION ASSMT&IVNTJ INDIV EACH 15 SC MEDICAL NUTRITION ASSMT&IVNTJ INDIV EACH 15 SC MEDICAL NUTRITION ASSMT&IVNTJ INDIV EACH 15 SC MEDICAL NUTRITION ASSMT&IVNTJ INDIV EACH 15 SC Caryn Lowery APRN.TAX REVENUE OFFICER [address] [place] [address] Referral ID Status Reason Start Date Expiration Date Visits Requested Visits Authorized [id number] Authorized PCP Requested Referral 11/23/2022 11/23/2023 1 1 Specialty Diagnoses / Procedures Referred By Contac t Referred To Contact Gastroenterology Diagnoses Epigastric pain Vomiting and diarrhea Procedures CONSULT TO GASTROENTEROLOGY OFFICE/OUTPATIENT [facility] 60 MINUTES Caryn Lowery APRN.TAX REVENUE OFFICER [address] [place] [address] Referral ID Status Reason Start Date Expiration Date Visits Requested Visits Authorized [id number] Authorized PCP Requested Referral 11/16/2023 11/15/2024 1 1 Specialty Diagnoses / Procedures Referred By Contac t Referred To Contact CT IMAGING Diagnoses Chest pain, unspecified type Shortness of breath Palpitations Elevated d-dimer Procedures CT CHEST W IVCON PE DIAGNOSTIC COMPUTED TOMOGRAPHY THORAX W/CONTRAST Caryn Lowery APRN.TAX REVENUE OFFICER [address] [place] [address] [place] [address] Referral ID Status Reason Start Date Expiration Date Visits Requested Visits Authorized [id number] New Request Auto-Generat ed Referral 01/05/2024 02/03/2025 1 1 Specialty Diagnoses / Procedures Referred By Contac t Referred To Contact CT IMAGING Diagnoses Shortness of breath Cough, unspecified type Wheezing Low O2 saturation Subacute cough Procedures CT CHEST W IVCON DIAGNOSTIC COMPUTED TOMOGRAPHY THORAX W/CONTRAST Caryn Lowery APRN.[employer] [address] [place] [address] [place] [id number] Referral ID Status Reason Start Date Expiration Date Visits Requested Visits Authorized [id number] Additional Clinical Info Needed Auto-Generat ed Referral 02/17/2024 03/18/2025 1 1 Specialty Diagnoses / Procedures Referred By Contac t Referred To Contact Diagnoses Mild persistent asthma without complication Elle Boone MD [address] [place] [address] Referral ID Status Reason Start Date Expiration Date V isits Requested Visits Authorized [id number] Pending Review 1 1 Chief Complaint and [...] sleep apnea) Tobacco use disorder Chief Complaint Admit Date cellulitis December 24, 2024 10 :14pm Health Concerns Infection Onset Date Last Indicated Resolved Time COVID-19 Rule-Out 06/30/2023 06/30/2023 Additional Source Comments INFORMATION SOURCE (unrecogn ized section and content) DATE CREATED AUTHOR 07/24/2021 [facility] DATE CREATED AUTHOR AUTHOR'S ORGANIZ ATION 07/03/2022 [facility] DATE CREATED AUTHOR AUTHOR'S ORGANIZ ATION 01/10/2024 [facility] ([place]) DATE CREATED AUTHOR AUTHOR'S ORGANIZ ATION 04/03/2024 [facility] DATE CREATED AUTHOR AUTHOR'S ORGANIZ ATION 12/25/2024 [facility] DATE CREATED AUTHOR AUTHOR'S ORGANIZ ATION 12/25/[address] [facility] DATE CREATED AUTHOR AUTHOR'S ORGANIZ ATION 12/26/2024 [facility] Source Comments (unrecognize d section and content) In the event this informatio n is protected by the Federal Confidentiality of Alcohol and Drug Abuse Patient Records regulations: The Federal rules restrict any use of the information to criminally investigate or prosecute any alcohol or drug abuse patient.[facility] the event this information is protected by the Federal Confidentiality of Alcohol and Drug Abuse Patient Records regulations: The Federal rules restrict any use of the information to criminally investigate or prosecute any alcohol or drug abuse patient.[facility]In the event this information is protected by the Federal Confidentiality of Alcohol and Drug Abuse Patient Records regulations: The Federal rules restrict any use of the information to criminally investigate or prosecute any alcohol or drug abuse patient.[facility] CenterIn the event this information is protected by the Federal Confidentiality of Alcohol and Drug Abuse Patient Records regulations: The Federal rules restrict any use of the information to criminally investigate or prosecute any alcohol or drug abuse patient.[facility]In the event this information is protected by the Federal Confidentiality of Alcohol and Drug Abuse Patient Records regulations: The Federal rules restrict any use of the information to criminally investigate or prosecute any alcohol or drug abuse patient.[facility] CenterIn the event this information is protected by the Federal Confidentiality of Alcohol and Drug Abuse Patient Records regulations: The Federal rules restrict any use of the information to criminally investigate or prosecute any alcohol or drug abuse patient.[facility] CenterIn the event this information is protected by the Federal Confidentiality of Alcohol and Drug Abuse Patient Records regulations: The Federal rules restrict any use of the information to criminally investigate or prosecute any alcohol or drug abuse patient.[facility] CenterIn the event this information is protected by the Federal Confidentiality of Alcohol and Drug Abuse Patient Records regulations: The Federal rules restrict any use of the information to criminally investigate or prosecute any alcohol or drug abuse patient.[facility] CenterIn the event this information is protected by the Federal Confidentiality of Alcohol and Drug Abuse Patient Records regulations: The Federal rules restrict any use of the information to criminally investigate or prosecute any alcohol or drug abuse patient.[facility] CenterIn the event this information is protected by the Federal Confidentiality of Alcohol and Drug Abuse Patient Records regulations: The Federal rules restrict any use of the information to criminally investigate or prosecute any alcohol or drug abuse patient.[facility] CenterIn the event this information is protected by the Federal Confidentiality of Alcohol and Drug Abuse Patient Records regulations: The Federal rules restrict any use of the information to criminally investigate or prosecute any alcohol or drug abuse patient.[facility] CenterIn the event this information is protected by the Federal Confidentiality of Alcohol and Drug Abuse Patient Records regulations: The Federal rules restrict any use of the information to criminally investigate or prosecute any alcohol or drug abuse patient.[facility] CenterIn the event this information is protected by the Federal Confidentiality of Alcohol and Drug Abuse Patient Records regulations: The Federal rules restrict any use of the information to criminally investigate or prosecute any alcohol or drug abuse patient.[facility] CenterIn the event this information is protected by the Federal Confidentiality of Alcohol and Drug Abuse Patient Records regulations: The Federal rules restrict any use of the information to criminally investigate or prosecute any alcohol or drug abuse patient.[facility] CenterIn the event this information is protected by the Federal Confidentiality of Alcohol and Drug Abuse Patient Records regulations: The Federal rules restrict any use of the information to criminally investigate or prosecute any alcohol or drug abuse patient.[facility] CenterIn the event this information is protected by the Federal Confidentiality of Alcohol and Drug Abuse Patient Records regulations: The Federal rules restrict any use of the information to criminally investigate or prosecute any alcohol or drug abuse patient.[facility] CenterIn the event this information is protected by the Federal Confidentiality of Alcohol and Drug Abuse Patient Records regulations: The Federal rules restrict any use of the information to criminally investigate or prosecute any alcohol or drug abuse patient.[facility] CenterIn the event this information is protected by the Federal Confidentiality of Alcohol and Drug Abuse Patient Records regulations: The Federal rules restrict any use of the information to criminally investigate or prosecute any alcohol or drug abuse patient.[facility] CenterIn the event this information is protected by the Federal Confidentiality of Alcohol and Drug Abuse Patient Records regulations: The Federal rules restrict any use of the information to criminally investigate or prosecute any alcohol or drug abuse patient.[facility] CenterIn the event this information is protected by the Federal Confidentiality of Alcohol and Drug Abuse Patient Records regulations: The Federal rules restrict any use of the information to criminally investigate or prosecute any alcohol or drug abuse patient.[facility] CenterIn the event this information is protected by the Federal Confidentiality of Alcohol and Drug Abuse Patient Records regulations: The Federal rules restrict any use of the information to criminally investigate or prosecute any alcohol or drug abuse patient.[facility] CenterIn the event this information is protected by the Federal Confidentiality of Alcohol and Drug Abuse Patient Records regulations: The Federal rules restrict any use of the information to criminally investigate or prosecute any alcohol or drug abuse patient.[facility] CenterIn the event this information is protected by the Federal Confidentiality of Alcohol and Drug Abuse Patient Records regulations: The Federal rules restrict any use of the information to criminally investigate or prosecute any alcohol or drug abuse patient.[facility] CenterIn the event this information is protected by the Federal Confidentiality of Alcohol and Drug Abuse Patient Records regulations: The Federal rules restrict any use of the information to criminally investigate or prosecute any alcohol or drug abuse patient.[facility] CenterIn the event this information is protected by the Federal Confidentiality of Alcohol and Drug Abuse Patient Records regulations: The Federal rules restrict any use of the information to criminally investigate or prosecute any alcohol or drug abuse patient.[facility] CenterIn the event this information is protected by the Federal Confidentiality of Alcohol and Drug Abuse Patient Records regulations: The Federal rules restrict any use of the information to criminally investigate or prosecute any alcohol or drug abuse patient.[facility] CenterIn the event this information is protected by the Federal Confidentiality of Alcohol and Drug Abuse Patient Records regulations: The Federal rules restrict any use of the information to criminally investigate or prosecute any alcohol or drug abuse patient.[facility] CenterIn the event this information is protected by the Federal Confidentiality of Alcohol and Drug Abuse Patient Records regulations: The Federal rules restrict any use of the information to criminally investigate or prosecute any alcohol or drug abuse patient.[facility] CenterIn the event this information is protected by the Federal Confidentiality of Alcohol and Drug Abuse Patient Records regulations: The Federal rules restrict any use of the information to criminally investigate or prosecute any alcohol or drug abuse patient.[facility] CenterIn the event this information is protected by the Federal Confidentiality of Alcohol and Drug Abuse Patient Records regulations: The Federal rules restrict any use of the information to criminally investigate or prosecute any alcohol or drug abuse patient.[facility] CenterIn the event this information is protected by the Federal Confidentiality of Alcohol and Drug Abuse Patient Records regulations: The Federal rules restrict any use of the information to criminally investigate or prosecute any alcohol or drug abuse patient.[facility] CenterIn the event this information is protected by the Federal Confidentiality of Alcohol and Drug Abuse Patient Records regulations: The Federal rules restrict any use of the information to criminally investigate or prosecute any alcohol or drug abuse patient.[facility] CenterIn the event this information is protected by the Federal Confidentiality of Alcohol and Drug Abuse Patient Records regulations: The Federal rules restrict any use of the information to criminally investigate or prosecute any alcohol or drug abuse patient.[facility] CenterIn the event this information is protected by the Federal Confidentiality of Alcohol and Drug Abuse Patient Records regulations: The Federal rules restrict any use of the information to criminally investigate or prosecute any alcohol or drug abuse patient.[facility] CenterIn the event this information is protected by the Federal Confidentiality of Alcohol and Drug Abuse Patient Records regulations: The Federal rules restrict any use of the information to criminally investigate or prosecute any alcohol or drug abuse patient.[facility] CenterIn the event this information is protected by the Federal Confidentiality of Alcohol and Drug Abuse Patient Records regulations: The Federal rules restrict any use of the information to criminally investigate or prosecute any alcohol or drug abuse patient.[facility] CenterIn the event this information is protected by the Federal Confidentiality of Alcohol and Drug Abuse Patient Records regulations: The Federal rules restrict any use of the information to criminally investigate or prosecute any alcohol or drug abuse patient.[facility] CenterIn the event this information is protected by the Federal Confidentiality of Alcohol and Drug Abuse Patient Records regulations: The Federal rules restrict any use of the information to criminally investigate or prosecute any alcohol or drug abuse patient.[facility] CenterIn the event this information is protected by the Federal Confidentiality of Alcohol and Drug Abuse Patient Records regulations: The Federal rules restrict any use of the information to criminally investigate or prosecute any alcohol or drug abuse patient.[facility] CenterIn the event this information is protected by the Federal Confidentiality of Alcohol and Drug Abuse Patient Records regulations: The Federal rules restrict any use of the information to criminally investigate or prosecute any alcohol or drug abuse patient.[facility] CenterIn the event this information is protected by the Federal Confidentiality of Alcohol and Drug Abuse Patient Records regulations: The Federal rules restrict any use of the information to criminally investigate or prosecute any alcohol or drug abuse patient.[facility] CenterIn the event this information is protected by the Federal Confidentiality of Alcohol and Drug Abuse Patient Records regulations: The Federal rules restrict any use of the information to criminally investigate or prosecute any alcohol or drug abuse patient.[facility] CenterIn the event this information is protected by the Federal Confidentiality of Alcohol and Drug Abuse Patient Records regulations: The Federal rules restrict any use of the information to criminally investigate or prosecute any alcohol or drug abuse patient.[facility] CenterIn the event this information is protected by the Federal Confidentiality of Alcohol and Drug Abuse Patient Records regulations: The Federal rules restrict any use of the information to criminally investigate or prosecute any alcohol or drug abuse patient.[facility] CenterIn the event this information is protected by the Federal Confidentiality of Alcohol and Drug Abuse Patient Records regulations: The Federal rules restrict any use of the information to criminally investigate or prosecute any alcohol or drug abuse patient.[facility] CenterIn the event this information is protected by the Federal Confidentiality of Alcohol and Drug Abuse Patient Records regulations: The Federal rules restrict any use of the information to criminally investigate or prosecute any alcohol or drug abuse patient.[facility] CenterIn the event this information is protected by the Federal Confidentiality of Alcohol and Drug Abuse Patient Records regulations: The Federal rules restrict any use of the information to criminally investigate or prosecute any alcohol or drug abuse patient.[facility] CenterIn the event this information is protected by the Federal Confidentiality of Alcohol and Drug Abuse Patient Records regulations: The Federal rules restrict any use of the information to criminally investigate or prosecute any alcohol or drug abuse patient.[facility] CenterIn the event this information is protected by the Federal Confidentiality of Alcohol and Drug Abuse Patient Records regulations: The Federal rules restrict any use of the information to criminally investigate or prosecute any alcohol or drug abuse patient.[facility] CenterIn the event this information is protected by the Federal Confidentiality of Alcohol and Drug Abuse Patient Records regulations: The Federal rules restrict any use of the information to criminally investigate or prosecute any alcohol or drug abuse patient.[facility]In the event this information is protected by the Federal Confidentiality of Alcohol and Drug Abuse Patient Records regulations: The Federal rules restrict any use of the information to criminally investigate or prosecute any alcohol or drug abuse patient.[facility]In the event this information is protected by the Federal Confidentiality of Alcohol and Drug Abuse Patient Records regulations: The Federal rules restrict any use of the information to criminally investigate or prosecute any alcohol or drug abuse patient.[facility]In the event this information is protected by the Federal Confidentiality of Alcohol and Drug Abuse Patient Records regulations: The Federal rules restrict any use of the information to criminally investigate or prosecute any alcohol or drug abuse patient.[facility] CenterIn the event this information is protected by the Federal Confidentiality of Alcohol and Drug Abuse Patient Records regulations: The Federal rules restrict any use of the information to criminally investigate or prosecute any alcohol or drug abuse patient.[facility] CenterIn the event this information is protected by the Federal Confidentiality of Alcohol and Drug Abuse Patient Records regulations: The Federal rules restrict any use of the information to criminally investigate or prosecute any alcohol or drug abuse patient.[facility] CenterIn the event this information is protected by the Federal Confidentiality of Alcohol and Drug Abuse Patient Records regulations: The Federal rules restrict any use of the information to criminally investigate or prosecute any alcohol or drug abuse patient.[facility] CenterIn the event this information is protected by the Federal Confidentiality of Alcohol and Drug Abuse Patient Records regulations: The Federal rules restrict any use of the information to criminally investigate or prosecute any alcohol or drug abuse patient.[facility] CenterIn the event this information is protected by the Federal Confidentiality of Alcohol and Drug Abuse Patient Records regulations: The Federal rules restrict any use of the information to criminally investigate or prosecute any alcohol or drug abuse patient.[facility] CenterIn the event this information is protected by the Federal Confidentiality of Alcohol and Drug Abuse Patient Records regulations: The Federal rules restrict any use of the information to criminally investigate or prosecute any alcohol or drug abuse patient.[facility] CenterIn the event this information is protected by the Federal Confidentiality of Alcohol and Drug Abuse Patient Records regulations: The Federal rules restrict any use of the information to criminally investigate or prosecute any alcohol or drug abuse patient.[facility] CenterIn the event this information is protected by the Federal Confidentiality of Alcohol and Drug Abuse Patient Records regulations: The Federal rules restrict any use of the information to criminally investigate or prosecute any alcohol or drug abuse patient.[facility] CenterIn the event this information is protected by the Federal Confidentiality of Alcohol and Drug Abuse Patient Records regulations: The Federal rules restrict any use of the information to criminally investigate or prosecute any alcohol or drug abuse patient.[facility] CenterIn the event this information is protected by the Federal Confidentiality of Alcohol and Drug Abuse Patient Records regulations: The Federal rules restrict any use of the information to criminally investigate or prosecute any alcohol or drug abuse patient.[facility]In the event this information is protected by the Federal Confidentiality of Alcohol and Drug Abuse Patient Records regulations: The Federal rules restrict any use of the information to criminally investigate or prosecute any alcohol or drug abuse patient.[facility]In the event this information is protected by the Federal Confidentiality of Alcohol and Drug Abuse Patient Records regulations: The Federal rules restrict any use of the information to criminally investigate or prosecute any alcohol or drug abuse patient.[facility]In the event this information is protected by the Federal Confidentiality of Alcohol and Drug Abuse Patient Records regulations: The Federal rules restrict any use of the information to criminally investigate or prosecute any alcohol or drug abuse patient.[facility]In the event this information is protected by the Federal Confidentiality of Alcohol and Drug Abuse Patient Records regulations: The Federal rules restrict any use of the information to criminally investigate or prosecute any alcohol or drug abuse patient.[facility]In the event this information is protected by the Federal Confidentiality of Alcohol and Drug Abuse Patient Records regulations: The Federal rules restrict any use of the information to criminally investigate or prosecute any alcohol or drug abuse patient.[facility]In the event this information is protected by the Federal Confidentiality of Alcohol and Drug Abuse Patient Records regulations: The Federal rules restrict any use of the information to criminally investigate or prosecute any alcohol or drug abuse patient.[facility] CenterIn the event this information is protected by the Federal Confidentiality of Alcohol and Drug Abuse Patient Records regulations: The Federal rules restrict any use of the information to criminally investigate or prosecute any alcohol or drug abuse patient.[facility] CenterIn the event this information is protected by the Federal Confidentiality of Alcohol and Drug Abuse Patient Records regulations: The Federal rules restrict any use of the information to criminally investigate or prosecute any alcohol or drug abuse patient.[facility] CenterIn the event this information is protected by the Federal Confidentiality of Alcohol and Drug Abuse Patient Records regulations: The Federal rules restrict any use of the information to criminally investigate or prosecute any alcohol or drug abuse patient.[facility]In the event this information is protected by the Federal Confidentiality of Alcohol and Drug Abuse Patient Records regulations: The Federal rules restrict any use of the information to criminally investigate or prosecute any alcohol or drug abuse patient.[facility] CenterIn the event this information is protected by the Federal Confidentiality of Alcohol and Drug Abuse Patient Records regulations: The Federal rules restrict any use of the information to criminally investigate or prosecute any alcohol or drug abuse patient.[facility] CenterIn the event this information is protected by the Federal Confidentiality of Alcohol and Drug Abuse Patient Records regulations: The Federal rules restrict any use of the information to criminally investigate or prosecute any alcohol or drug abuse patient.[facility] CenterIn the event this information is protected by the Federal Confidentiality of Alcohol and Drug Abuse Patient Records regulations: The Federal rules restrict any use of the information to criminally investigate or prosecute any alcohol or drug abuse patient.[facility] CenterIn the event this information is protected by the Federal Confidentiality of Alcohol and Drug Abuse Patient Records regulations: The Federal rules restrict any use of the information to criminally investigate or prosecute any alcohol or drug abuse patient.[facility] CenterIn the event this information is protected by the Federal Confidentiality of Alcohol and Drug Abuse Patient Records regulations: The Federal rules restrict any use of the information to criminally investigate or prosecute any alcohol or drug abuse patient.[facility] CenterIn the event this information is protected by the Federal Confidentiality of Alcohol and Drug Abuse Patient Records regulations: The Federal rules restrict any use of the information to criminally investigate or prosecute any alcohol or drug abuse patient.[facility] CenterIn the event this information is protected by the Federal Confidentiality of Alcohol and Drug Abuse Patient Records regulations: The Federal rules restrict any use of the information to criminally investigate or prosecute any alcohol or drug abuse patient.[facility] CenterIn the event this information is protected by the Federal Confidentiality of Alcohol and Drug Abuse Patient Records regulations: The Federal rules restrict any use of the information to criminally investigate or prosecute any alcohol or drug abuse patient.[facility] CenterIn the event this information is protected by the Federal Confidentiality of Alcohol and Drug Abuse Patient Records regulations: The Federal rules restrict any use of the information to criminally investigate or prosecute any alcohol or drug abuse patient.[facility] CenterIn the event this information is protected by the Federal Confidentiality of Alcohol and Drug Abuse Patient Records regulations: The Federal rules restrict any use of the information to criminally investigate or prosecute any alcohol or drug abuse patient.[facility] CenterIn the event this information is protected by the Federal Confidentiality of Alcohol and Drug Abuse Patient Records regulations: The Federal rules restrict any use of the information to criminally investigate or prosecute any alcohol or drug abuse patient.[facility] CenterIn the event this information is protected by the Federal Confidentiality of Alcohol and Drug Abuse Patient Records regulations: The Federal rules restrict any use of the information to criminally investigate or prosecute any alcohol or drug abuse patient.[facility] CenterIn the event this information is protected by the Federal Confidentiality of Alcohol and Drug Abuse Patient Records regulations: The Federal rules restrict any use of the information to criminally investigate or prosecute any alcohol or drug abuse patient.[facility] CenterIn the event this information is protected by the Federal Confidentiality of Alcohol and Drug Abuse Patient Records regulations: The Federal rules restrict any use of the information to criminally investigate or prosecute any alcohol or drug abuse patient.[facility] CenterIn the event this information is protected by the Federal Confidentiality of Alcohol and Drug Abuse Patient Records regulations: The Federal rules restrict any use of the information to criminally investigate or prosecute any alcohol or drug abuse patient.[facility] CenterIn the event this information is protected by the Federal Confidentiality of Alcohol and Drug Abuse Patient Records regulations: The Federal rules restrict any use of the information to criminally investigate or prosecute any alcohol or drug abuse patient.[facility] CenterIn the event this information is protected by the Federal Confidentiality of Alcohol and Drug Abuse Patient Records regulations: The Federal rules restrict any use of the information to criminally investigate or prosecute any alcohol or drug abuse patient.[facility] CenterIn the event this information is protected by the Federal Confidentiality of Alcohol and Drug Abuse Patient Records regulations: The Federal rules restrict any use of the information to criminally investigate or prosecute any alcohol or drug abuse patient.[facility] CenterIn the event this information is protected by the Federal Confidentiality of Alcohol and Drug Abuse Patient Records regulations: The Federal rules restrict any use of the information to criminally investigate or prosecute any alcohol or drug abuse patient.[facility] CenterIn the event this information is protected by the Federal Confidentiality of Alcohol and Drug Abuse Patient Records regulations: The Federal rules restrict any use of the information to criminally investigate or prosecute any alcohol or drug abuse patient.[facility] CenterIn the event this information is protected by the Federal Confidentiality of Alcohol and Drug Abuse Patient Records regulations: The Federal rules restrict any use of the information to criminally investigate or prosecute any alcohol or drug abuse patient.[facility] CenterIn the event this information is protected by the Federal Confidentiality of Alcohol and Drug Abuse Patient Records regulations: The Federal rules restrict any use of the information to criminally investigate or prosecute any alcohol or drug abuse patient.[facility] CenterIn the event this information is protected by the Federal Confidentiality of Alcohol and Drug Abuse Patient Records regulations: The Federal rules restrict any use of the information to criminally investigate or prosecute any alcohol or drug abuse patient.[facility] CenterIn the event this information is protected by the Federal Confidentiality of Alcohol and Drug Abuse Patient Records regulations: The Federal rules restrict any use of the information to criminally investigate or prosecute any alcohol or drug abuse patient.[facility] CenterIn the event this information is protected by the Federal Confidentiality of Alcohol and Drug Abuse Patient Records regulations: The Federal rules restrict any use of the information to criminally investigate or prosecute any alcohol or drug abuse patient.[facility] CenterIn the event this information is protected by the Federal Confidentiality of Alcohol and Drug Abuse Patient Records regulations: The Federal rules restrict any use of the information to criminally investigate or prosecute any alcohol or drug abuse patient.[facility] CenterIn the event this information is protected by the Federal Confidentiality of Alcohol and Drug Abuse Patient Records regulations: The Federal rules restrict any use of the information to criminally investigate or prosecute any alcohol or drug abuse patient.[facility] CenterIn the event this information is protected by the Federal Confidentiality of Alcohol and Drug Abuse Patient Records regulations: The Federal rules restrict any use of the information to criminally investigate or prosecute any alcohol or drug abuse patient.[facility] CenterIn the event this information is protected by the Federal Confidentiality of Alcohol and Drug Abuse Patient Records regulations: The Federal rules restrict any use of the information to criminally investigate or prosecute any alcohol or drug abuse patient.[facility] CenterIn the event this information is protected by the Federal Confidentiality of Alcohol and Drug Abuse Patient Records regulations: The Federal rules restrict any use of the information to criminally investigate or prosecute any alcohol or drug abuse patient.[facility] CenterIn the event this information is protected by the Federal Confidentiality of Alcohol and Drug Abuse Patient Records regulations: The Federal rules restrict any use of the information to criminally investigate or prosecute any alcohol or drug abuse patient.[facility] CenterIn the event this information is protected by the Federal Confidentiality of Alcohol and Drug Abuse Patient Records regulations: The Federal rules restrict any use of the information to criminally investigate or prosecute any alcohol or drug abuse patient.[facility] CenterIn the event this information is protected by the Federal Confidentiality of Alcohol and Drug Abuse Patient Records regulations: The Federal rules restrict any use of the information to criminally investigate or prosecute any alcohol or drug abuse patient.[facility] CenterIn the event this information is protected by the Federal Confidentiality of Alcohol and Drug Abuse Patient Records regulations: The Federal rules restrict any use of the information to criminally investigate or prosecute any alcohol or drug abuse patient.[facility] CenterIn the event this information is protected by the Federal Confidentiality of Alcohol and Drug Abuse Patient Records regulations: The Federal rules restrict any use of the information to criminally investigate or prosecute any alcohol or drug abuse patient.[facility] CenterIn the event this information is protected by the Federal Confidentiality of Alcohol and Drug Abuse Patient Records regulations: The Federal rules restrict any use of the information to criminally investigate or prosecute any alcohol or drug abuse patient.[facility] CenterIn the event this information is protected by the Federal Confidentiality of Alcohol and Drug Abuse Patient Records regulations: The Federal rules restrict any use of the information to criminally investigate or prosecute any alcohol or drug abuse patient.[facility] CenterIn the event this information is protected by the Federal Confidentiality of Alcohol and Drug Abuse Patient Records regulations: The Federal rules restrict any use of the information to criminally investigate or prosecute any alcohol or drug abuse patient.[facility] CenterIn the event this information is protected by the Federal Confidentiality of Alcohol and Drug Abuse Patient Records regulations: The Federal rules restrict any use of the information to criminally investigate or prosecute any alcohol or drug abuse patient.[facility] CenterIn the event this information is protected by the Federal Confidentiality of Alcohol and Drug Abuse Patient Records regulations: The Federal rules restrict any use of the information to criminally investigate or prosecute any alcohol or drug abuse patient.[facility] CenterIn the event this information is protected by the Federal Confidentiality of Alcohol and Drug Abuse Patient Records regulations: The Federal rules restrict any use of the information to criminally investigate or prosecute any alcohol or drug abuse patient.[facility] CenterIn the event this information is protected by the Federal Confidentiality of Alcohol and Drug Abuse Patient Records regulations: The Federal rules restrict any use of the information to criminally investigate or prosecute any alcohol or drug abuse patient.[facility] CenterIn the event this information is protected by the Federal Confidentiality of Alcohol and Drug Abuse Patient Records regulations: The Federal rules restrict any use of the information to criminally investigate or prosecute any alcohol or drug abuse patient.[facility] CenterIn the event this information is protected by the Federal Confidentiality of Alcohol and Drug Abuse Patient Records regulations: The Federal rules restrict any use of the information to criminally investigate or prosecute any alcohol or drug abuse patient.[facility] CenterIn the event this information is protected by the Federal Confidentiality of Alcohol and Drug Abuse Patient Records regulations: The Federal rules restrict any use of the information to criminally investigate or prosecute any alcohol or drug abuse patient.[facility] CenterIn the event this information is protected by the Federal Confidentiality of Alcohol and Drug Abuse Patient Records regulations: The Federal rules restrict any use of the information to criminally investigate or prosecute any alcohol or drug abuse patient.[facility] CenterIn the event this information is protected by the Federal Confidentiality of Alcohol and Drug Abuse Patient Records regulations: The Federal rules restrict any use of the information to criminally investigate or prosecute any alcohol or drug abuse patient.[facility] CenterIn the event this information is protected by the Federal Confidentiality of Alcohol and Drug Abuse Patient Records regulations: The Federal rules restrict any use of the information to criminally investigate or prosecute any alcohol or drug abuse patient.[facility] CenterIn the event this information is protected by the Federal Confidentiality of Alcohol and Drug Abuse Patient Records regulations: The Federal rules restrict any use of the information to criminally investigate or prosecute any alcohol or drug abuse patient.[facility] CenterIn the event this information is protected by the Federal Confidentiality of Alcohol and Drug Abuse Patient Records regulations: The Federal rules restrict any use of the information to criminally investigate or prosecute any alcohol or drug abuse patient.[facility] CenterIn the event this information is protected by the Federal Confidentiality of Alcohol and Drug Abuse Patient Records regulations: The Federal rules restrict any use of the information to criminally investigate or prosecute any alcohol or drug abuse patient.[facility] CenterIn the event this information is protected by the Federal Confidentiality of Alcohol and Drug Abuse Patient Records regulations: The Federal rules restrict any use of the information to criminally investigate or prosecute any alcohol or drug abuse patient.[facility]In the event this information is protected by the Federal Confidentiality of Alcohol and Drug Abuse Patient Records regulations: The Federal rules restrict any use of the information to criminally investigate or prosecute any alcohol or drug abuse patient.[facility]In the event this information is protected by the Federal Confidentiality of Alcohol and Drug Abuse Patient Records regulations: The Federal rules restrict any use of the information to criminally investigate or prosecute any alcohol or drug abuse patient.[facility] CenterIn the event this information is protected by the Federal Confidentiality of Alcohol and Drug Abuse Patient Records regulations: The Federal rules restrict any use of the information to criminally investigate or prosecute any alcohol or drug abuse patient.[facility] CenterIn the event this information is protected by the Federal Confidentiality of Alcohol and Drug Abuse Patient Records regulations: The Federal rules restrict any use of the information to criminally investigate or prosecute any alcohol or drug abuse patient.[facility] CenterIn the event this information is protected by the Federal Confidentiality of Alcohol and Drug Abuse Patient Records regulations: The Federal rules restrict any use of the information to criminally investigate or prosecute any alcohol or drug abuse patient.[facility] CenterIn the event this information is protected by the Federal Confidentiality of Alcohol and Drug Abuse Patient Records regulations: The Federal rules restrict any use of the information to criminally investigate or prosecute any alcohol or drug abuse patient.[facility] CenterIn the event this information is protected by the Federal Confidentiality of Alcohol and Drug Abuse Patient Records regulations: The Federal rules restrict any use of the information to criminally investigate or prosecute any alcohol or drug abuse patient.[facility] CenterIn the event this information is protected by the Federal Confidentiality of Alcohol and Drug Abuse Patient Records regulations: The Federal rules restrict any use of the information to criminally investigate or prosecute any alcohol or drug abuse patient.[facility] CenterIn the event this information is protected by the Federal Confidentiality of Alcohol and Drug Abuse Patient Records regulations: The Federal rules restrict any use of the information to criminally investigate or prosecute any alcohol or drug abuse patient.[facility] CenterIn the event this information is protected by the Federal Confidentiality of Alcohol and Drug Abuse Patient Records regulations: The Federal rules restrict any use of the information to criminally investigate or prosecute any alcohol or drug abuse patient.[facility]In the event this information is protected by the Federal Confidentiality of Alcohol and Drug Abuse Patient Records regulations: The Federal rules restrict any use of the information to criminally investigate or prosecute any alcohol or drug abuse patient.[facility]In the event this information is protected by the Federal Confidentiality of Alcohol and Drug Abuse Patient Records regulations: The Federal rules restrict any use of the information to criminally investigate or prosecute any alcohol or drug abuse patient.[facility]In the event this information is protected by the Federal Confidentiality of Alcohol and Drug Abuse Patient Records regulations: The Federal rules restrict any use of the information to criminally investigate or prosecute any alcohol or drug abuse patient.[facility]In the event this information is protected by the Federal Confidentiality of Alcohol and Drug Abuse Patient Records regulations: The Federal rules restrict any use of the information to criminally investigate or prosecute any alcohol or drug abuse patient.[facility]In the event this information is protected by the Federal Confidentiality of Alcohol and Drug Abuse Patient Records regulations: The Federal rules restrict any use of the information to criminally investigate or prosecute any alcohol or drug abuse patient.[facility] CenterIn the event this information is protected by the Federal Confidentiality of Alcohol and Drug Abuse Patient Records regulations: The Federal rules restrict any use of the information to criminally investigate or prosecute any alcohol or drug abuse patient.[facility]In the event this information is protected by the Federal Confidentiality of Alcohol and Drug Abuse Patient Records regulations: The Federal rules restrict any use of the information to criminally investigate or prosecute any alcohol or drug abuse patient.[facility] CenterIn the event this information is protected by the Federal Confidentiality of Alcohol and Drug Abuse Patient Records regulations: The Federal rules restrict any use of the information to criminally investigate or prosecute any alcohol or drug abuse patient.[facility] CenterIn the event this information is protected by the Federal Confidentiality of Alcohol and Drug Abuse Patient Records regulations: The Federal rules restrict any use of the information to criminally investigate or prosecute any alcohol or drug abuse patient.[facility]In the event this information is protected by the Federal Confidentiality of Alcohol and Drug Abuse Patient Records regulations: The Federal rules restrict any use of the information to criminally investigate or prosecute any alcohol or drug abuse patient.[facility]In the event this information is protected by the Federal Confidentiality of Alcohol and Drug Abuse Patient Records regulations: The Federal rules restrict any use of the information to criminally investigate or prosecute any alcohol or drug abuse patient.[facility]In the event this information is protected by the Federal Confidentiality of Alcohol and Drug Abuse Patient Records regulations: The Federal rules restrict any use of the information to criminally investigate or prosecute any alcohol or drug abuse patient.[facility] CenterIn the event this information is protected by the Federal Confidentiality of Alcohol and Drug Abuse Patient Records regulations: The Federal rules restrict any use of the information to criminally investigate or prosecute any alcohol or drug abuse patient.[facility]In the event this information is protected by the Federal Confidentiality of Alcohol and Drug Abuse Patient Records regulations: The Federal rules restrict any use of the information to criminally investigate or prosecute any alcohol or drug abuse patient.[facility] CenterIn the event this information is protected by the Federal Confidentiality of Alcohol and Drug Abuse Patient Records regulations: The Federal rules restrict any use of the information to criminally investigate or prosecute any alcohol or drug abuse patient.[facility]In the event this information is protected by the Federal Confidentiality of Alcohol and Drug Abuse Patient Records regulations: The Federal rules restrict any use of the information to criminally investigate or prosecute any alcohol or drug abuse patient.[facility] CenterIn the event this information is protected by the Federal Confidentiality of Alcohol and Drug Abuse Patient Records regulations: The Federal rules restrict any use of the information to criminally investigate or prosecute any alcohol or drug abuse patient.[facility] Reason for Visit (unrecogniz ed section and [...] NEW HIGH MDM 60-74 MINUTES 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, 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, 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[employer] [address] [place] [address] Referral ID Status Reason Start Date Expiration Date V isits Requested Visits Authorized [id number] Closed PCP Requested Referral 04/08/2022 04/08/2023 1 [...] THERAPY MEDICAL NUTRITION ASSMT&IVNTJ INDIV EACH 15 [place] MEDICAL NUTRITION ASSMT&IVNTJ INDIV EACH 15 [place] MEDICAL NUTRITION ASSMT&IVNTJ INDIV EACH 15 [place] MEDICAL NUTRITION ASSMT&IVNTJ INDIV EACH 15 [place] Caryn Lowery APRN.TAX REVENUE OFFICER [address] [id number] Referral ID Status Reason Start Date Expiration Date V isits Requested Visits Authorized [id number] Closed PCP Requested Referral 11/23/2022 11/23/2023 1 1 Reason Comments Recheck Adipex follow up Reason Comments Recheck 2 month follow up Reason Comments Radiology US Specialty Diagnoses / Procedures Referred By Contac t Referred To Contact US IMAGING Diagnoses RUQ pain Nausea Epigastric pain Diarrhea, unspecified type Procedures US ABD RT UPPER QUADRANT US ABDOMINAL REAL TIME W/IMAGE LIMITED Caryn Lowery APRN.TAX REVENUE OFFICER [address] [id number] [place] [id number] Referral ID Status Reason Start Date Expiration Date V isits Requested Visits Authorized [id number] Closed Auto-Generate d Referral 03/25/2022 04/24/2023 1 [...] congestion, SO B Reason Comments Faxed to [facility] Pulmonary Reason Comments Lab Orders Reason Comments Results Reason Comments Radiology CT Specialty Diagnoses / Procedures Referred By Sophia douglass Referred To Contact CT IMAGING Diagnoses Shortness of breath Cough, unspecified type Wheezing Low O2 saturation Subacute cough Procedures CT CHEST W IVCON DIAGNOSTIC COMPUTED TOMOGRAPHY THORAX W/CONTRAST 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, 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, 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 [address] [facility] [place] [address] [address] Imaging [place] [address] Referral ID Status Reason Start Date Expiration Date V isits Requested Visits Authorized [id number] Closed Auto-Generate d Referral 02/18/2024 03/19/2024 1 [...] GAS DETERMINATION Elle Boone MD [address] [facility] [place] [address] [address] Referral ID Status Reason Start Date Expiration Date V isits Requested Visits Authorized [id number] Closed Auto-Generate d Referral 05/23/2024 06/22/2025 1 1 Specialty Diagnoses / Procedures Referred By Contac t Referred To Contact [facility] Diagnoses Cough, unspecified type Procedures SPIROMETRY WITH DILATOR IF OBSTRUCTED BRNCDILAT RSPSE SPMTRY PRE&POST-BRNCDILAT ADMN Elle Boone MD [address] [place] [address] [address] Referral ID Status Reason Start Date Expiration Date V isits Requested Visits Authorized [id number] Closed Auto-Generate d Referral 05/23/2024 06/22/2025 1 [...] 11/21/2024 Reason Comments Abscess Under left breast Reason Comments Recheck ER follow up, Breast abcess Care Teams (unrecognized sec tion and content) Telecommunicator Relationship Specialty Start Date End Date Babar Phillip MD [address] [place] [address] PCP - General Internal Medicine 12/17/16 Deanne Patterson MD [address] [facility] [address] [place] [address] Pulmonary Disease 02/07/21 Telecommunicator Relationship Specialty Start Date End Date Babar Phillip MD [address] [facility] [place] [address] PCP - General Internal Medicine 12/17/16 Deanne Patterson MD [address] [facility] [address] [place] [address] Pulmonary Disease 02/07/21 Telecommunicator Relationship Specialty Start Date End Date Babar Phillip MD [address] [place] [address] PCP - General Internal Medicine 12/17/16 Deanne Patterson MD [address] [facility] [address] [place] [address] Pulmonary Disease 02/07/21 Telecommunicator Relationship Specialty Start Date End Date Babar Phillip MD [address] [place] [address] PCP - General Internal Medicine 12/17/16 Deanne Patterson MD [address] [place] [address] [address] [place] [address] Pulmonary Disease 02/07/21 Telecommunicator Relationship Specialty Start Date End Date Babar Phillip MD [address] [facility] [place] [address] PCP - General Internal Medicine 12/17/16 Deanne Patterson MD [address] [facility] [address] [place] [address] Pulmonary Disease 02/07/21 Telecommunicator Relationship Specialty Start Date End Date Babar Phillip MD [address] [place] [address] PCP - General Internal Medicine 12/17/16 Deanne Patterson MD [address] [facility] [address] [place] [address] Pulmonary Disease 02/07/21 Telecommunicator Relationship Specialty Start Date End Date Babar Phillip MD [address] [facility] [place] [address] PCP - General Internal Medicine 12/17/16 Deanne Patterson MD [address] [facility] [address] [place] [address] Pulmonary Disease 02/07/21 Telecommunicator Relationship Specialty Start Date End Date Babar Phillip MD [address] [place] [address] PCP - General Internal Medicine 12/17/16 Deanne Patterson MD [address] [facility] [address] [place] [address] Pulmonary Disease 02/07/21 Telecommunicator Relationship Specialty Start Date End Date Babar Phillip MD [address] [facility] [place] [address] PCP - General Internal Medicine 12/17/16 Deanne Patterson MD [address] [facility] [address] [place] [address] Pulmonary Disease 02/07/21 Telecommunicator Relationship Specialty Start Date End Date Babar Phillip MD [address] [facility] [place] [address] PCP - General Internal Medicine 12/17/16 Deanne Patterson MD [address] [facility] [address] [place] [address] Pulmonary Disease 02/07/21 Telecommunicator Relationship Specialty Start Date End Date Babar Phillip MD [address] [facility] [place] [address] PCP - General Internal Medicine 12/17/16 Deanne Patterson MD [address] [facility] [address] [place] [address] Pulmonary Disease 02/07/21 Telecommunicator Relationship Specialty Start Date End Date Babar Phillip MD [address] [facility] [place] [address] PCP - General Internal Medicine 12/17/16 Deanne Patterson MD [address] [facility] [address] [place] [address] Pulmonary Disease 02/07/21 Telecommunicator Relationship Specialty Start Date End Date Babar Phillip MD [address] [facility] [place] [address] PCP - General Internal Medicine 12/17/16 Deanne Patterson MD [address] [facility] [address] [place] [address] Pulmonary Disease 02/07/21 Telecommunicator Relationship Specialty Start Date End Date Babar Phillip MD [address] [facility] [place] [address] PCP - General Internal Medicine 12/17/16 Deanne Patterson MD [address] [facility] [address] [place] [address] Pulmonary Disease 02/07/21 Telecommunicator Relationship Specialty Start Date End Date Babar Phillip MD [address] [facility] [place] [address] PCP - General Internal Medicine 12/17/16 Deanne Patterson MD [address] [facility] [address] [place] [address] Pulmonary Disease 02/07/21 Telecommunicator Relationship Specialty Start Date End Date Babar Phillip MD [address] [facility] [place] [address] PCP - General Internal Medicine 12/17/16 Deanne Patterson MD [address] [facility] [address] [place] [address] Pulmonary Disease 02/07/21 Telecommunicator Relationship Specialty Start Date End Date Babar Phillip MD [address] [facility] [place] [address] PCP - General Internal Medicine 12/17/16 Deanne Patterson MD [address] [facility] [address] [place] [address] Pulmonary Disease 02/07/21 Telecommunicator Relationship Specialty Start Date End Date Babar Phillip MD [address] [facility] [place] [address] PCP - General Internal Medicine 12/17/16 Deanne Patterson MD [address] [facility] [address] [place] [address] Pulmonary Disease 02/07/21 Telecommunicator Relationship Specialty Start Date End Date Babar Phillip MD [address] [place] [address] PCP - General Internal Medicine 12/17/16 Deanne Patterson MD [address] [facility] [address] [place] [address] Pulmonary Disease 02/07/21 Team Status: Active Member Role Status Dates Dr. Babar Phillip MD Family Provider Active Dr. Babar Phillip MD Primary Care Provider Active Team Status: Inactive Member Role Status Dates Dr. Babar Phillip MD Primary Care Provider, Referring Provider Active Coco Regalado INFORMATION SYSTEMS SECURITY MANAGER, INFORMATION SYSTEMS SECURITY MANAGER-C Attending Provider Active Team Status: Inactive Member Role Status Dates Dr. Babar Phillip MD Primary Care Provider Active Dr. Steve Tirado MD Attending Provider, Referring Provider Active Telecommunicator Relationship Specialty Start Date End Date Babar Phillip MD [address] [facility] [place] [address] PCP - General Internal Medicine 12/17/16 Deanne Patterson MD [address] [facility] [address] [place] [address] Pulmonary Disease 02/07/21 Telecommunicator Relationship Specialty Start Date End Date Babar Phillip MD [address] [place] [address] PCP - General Internal Medicine 12/17/16 Deanne Patterson MD [address] [facility] [address] [place] [address] Pulmonary Disease 02/07/21 Telecommunicator Relationship Specialty Start Date End Date Babar Phillip MD [address] [place] [address] PCP - General Internal Medicine 12/17/16 Deanne Patterson MD [address] [facility] [address] [place] [address] Pulmonary Disease 02/07/21 Telecommunicator Relationship Specialty Start Date End Date Babar Phillip MD [address] [place] [address] PCP - General Internal Medicine 12/17/16 Deanne Patterson MD [address] [facility] [address] [place] [address] Pulmonary Disease 02/07/21 Telecommunicator Relationship Specialty Start Date End Date Babar Phillip MD [address] [place], [place] 452371 PCP - General Internal Medicine 12/17/16 Deanne Patterson MD [address] [facility] [address] [place] [address] Pulmonary Disease 02/07/21 Telecommunicator Relationship Specialty Start Date End Date Babar Phillip MD [address] [place], [place] 970591 PCP - General Internal Medicine 12/17/16 Deanne Patterson MD 1945 [facility] [address] [place], [place] 053485 Pulmonary Disease 02/07/21 Telecommunicator Relationship Specialty Start Date End Date Babar Phillip MD [address] [place], [place] 230051 PCP - General Internal Medicine 12/17/16 Deanne Patterson MD 1945 [facility] [address] [place] [address] Pulmonary Disease 02/07/21 Telecommunicator Relationship Specialty Start Date End Date Babar Phillip MD [address] [place], [place] 090591 PCP - General Internal Medicine 12/17/16 Deanne Patterson MD 1945 [facility] [address] [place] [address] Pulmonary Disease 02/07/21 Telecommunicator Relationship Specialty Start Date End Date Babar Phillip MD [address] [place] [address] PCP - General Internal Medicine 12/17/16 Deanne Patterson MD 1945 [facility] [address] [place] [address] Pulmonary Disease 02/07/21 Telecommunicator Relationship Specialty Start Date End Date Babar Phillip MD [address] [place] [address] PCP - General Internal Medicine 12/17/16 Deanne Patterson MD 1945 [facility] [address] [place] [address] Pulmonary Disease 02/07/21 Telecommunicator Relationship Specialty Start Date End Date Babar Phillip MD [address] [place] [address] PCP - General Internal Medicine 12/17/16 Deanne Patterson MD 1945 [facility] [address] [place] [address] Pulmonary Disease 02/07/21 Team Status: Inactive Member Role Status Dates Dr. Babar Phillip MD Primary Care Provider, Referring Provider Active Dr. Kamron Cobb MD Attending Provider Active Team Status: Inactive Member Role Status Dates Dr. Babar Phillip MD Primary Care Provider, Referring Provider Active Dr. Akin Gary , DO Attending Provider Active Telecommunicator Relationship Specialty Start Date End Date Babar Phillip MD [address] [place] [address] PCP - General Internal Medicine 12/17/16 Deanne Patterson MD [address] [facility] [address] [place] [address] Pulmonary Disease 02/07/21 Telecommunicator Relationship Specialty Start Date End Date Babar Phillip MD [address] [place] [address] PCP - General Internal Medicine 12/17/16 Deanne Patterson MD 1945 [facility] [address] [place] [address] Pulmonary Disease 02/07/21 Telecommunicator Relationship Specialty Start Date End Date Babar Phillip MD [address] [place], [place] 886061 PCP - General Internal Medicine 12/17/16 Deanne Patterson MD 1945 [facility] [address] [place], [place] 599785 Pulmonary Disease 02/07/21 Telecommunicator Relationship Specialty Start Date End Date Babar Phillip MD [address] [place] [address] PCP - General Internal Medicine 12/17/16 Deanne Patterson MD 1945 [facility] [address] [place] [address] Pulmonary Disease 02/07/21 Team Status: Inactive Member Role Status Dates Dr. Babar Phillip MD Primary Care Provider Active Dr. Kamron Cobb MD Attending Provider, Referring Pr ovider Active Telecommunicator Relationship Specialty Start Date End Date Babar Phillip MD [address] [place], [place] 565401 PCP - General Internal Medicine 12/17/16 Deanne Patterson MD [address] [facility] [address] [place] [address] Pulmonary Disease 02/07/21 Telecommunicator Relationship Specialty Start Date End Date Babar Phillip MD [address] [place] [address] PCP - General Internal Medicine 12/17/16 Deanne Patterson MD [address] [place] [address] [address] [place] [address] Pulmonary Disease 02/07/21 Telecommunicator Relationship Specialty Start Date End Date Babar Phillip MD [address] [place], [place] 060601 PCP - General Internal Medicine 12/17/16 Deanne Patterson MD [address] [place] [address] [address] [place], [place] 598925 Pulmonary Disease 02/07/21 Telecommunicator Relationship Specialty Start Date End Date Babar Phillip MD [address] [place], [place] 202531 PCP - General Internal Medicine 12/17/16 Deanne Patterson MD [address] [place] [address] [address] [place], [place] 857205 Pulmonary Disease 02/07/21 Telecommunicator Relationship Specialty Start Date End Date Babar Phillip MD [address] [place], [place] 680231 PCP - General Internal Medicine 12/17/16 eDanne Patterson MD [address] [facility] [address] [place], [place] 900255 Pulmonary Disease 02/07/21 Telecommunicator Relationship Specialty Start Date End Date Babar Phillip MD [address] [place], [place] 255071 PCP - General Internal Medicine 12/17/16 Deanne Patterson MD 1945 [facility] [address] [place], [place] 287035 Pulmonary Disease 02/07/21 Telecommunicator Relationship Specialty Start Date End Date Babar Phillip MD [address] [place], [place] 005421 PCP - General Internal Medicine 12/17/16 Deanne Patterson MD 1945 [facility] [address] [place], [place] 248705 Pulmonary Disease 02/07/21 Telecommunicator Relationship Specialty Start Date End Date Babar Phillip MD [address] [place], [place] 355581 PCP - General Internal Medicine 12/17/16 Deanne Patterson MD [address] [facility] [address] [place] [address] Pulmonary Disease 02/07/21 Telecommunicator Relationship Specialty Start Date End Date Babar Phillip MD [address] [place], [place] 232251 PCP - General Internal Medicine 12/17/16 Deanne Patterson MD 1945 [facility] [address] [place] [address] Pulmonary Disease 02/07/21 Telecommunicator Relationship Specialty Start Date End Date Babar Phillip MD [address] [place], [place] 608971 PCP - General Internal Medicine 12/17/16 Deanne Patterson MD [address] 976[address] Pulmonary Disease 02/07/21 Telecommunicator Relationship Specialty Start Date End Date Babar Phillip MD [address] [place], [place] 863771 PCP - General Internal Medicine 12/17/16 Deanne Patterson MD 1945 [facility] [address] [place], [place] 017705 Pulmonary Disease 02/07/21 Telecommunicator Relationship Specialty Start Date End Date Babar Phillip MD [address] [place], [place] 716101 PCP - General Internal Medicine 12/17/16 Deanne Patterson MD [address] [facility] [address] [place] [address] Pulmonary Disease 02/07/21 Telecommunicator Relationship Specialty Start Date End Date Babar Phillip MD [address] [place] [address] PCP - General Internal Medicine 12/17/16 Deanne Patterson MD [facility] [address] [place] [address] Pulmonary Disease 02/07/21 Telecommunicator Relationship Specialty Start Date End Date Babar Phillip MD [address] [place] [address] PCP - General Internal Medicine 12/17/16 Deanne Patterson MD [address] [place] [address] [address] [place] [address] Pulmonary Disease 02/07/21 Telecommunicator Relationship Specialty Start Date End Date Babar Phillip MD [address] [place] [address] PCP - General Internal Medicine 12/17/16 Deanne Patterson MD [address] [place] [address] [address] [place], [place] 668765 Pulmonary Disease 02/07/21 Telecommunicator Relationship Specialty Start Date End Date Babar Phillip MD [address] [place] [address] PCP - General Internal Medicine 12/17/16 Deanne Patterson MD 1945 [facility] [address] [place] [address] Pulmonary Disease 02/07/21 Telecommunicator Relationship Specialty Start Date End Date Babar Phillip MD [address] [place] [address] PCP - General Internal Medicine 12/17/16 Deanne Patterson MD [address] [facility] [address] [place] [address] Pulmonary Disease 02/07/21 Telecommunicator Relationship Specialty Start Date End Date Babar Phillip MD [address] [place] [address] PCP - General Internal Medicine 12/17/16 Deanne Patterson MD [address] [place] [address] [address] [place] [address] Pulmonary Disease 02/07/21 Telecommunicator Relationship Specialty Start Date End Date Babar Phillip MD [address] [place], [place] 568611 PCP - General Internal Medicine 12/17/16 Deanne Patterson MD 1945 [facility] [address] [place], [place] 416475 Pulmonary Disease 02/07/21 Telecommunicator Relationship Specialty Start Date End Date Babar Phillip MD [address] [place] [address] PCP - General Internal Medicine 12/17/16 Deanne Patterson MD 1945 [facility] [address] [place] [address] Pulmonary Disease 02/07/21 Telecommunicator Relationship Specialty Start Date End Date Babar Phillip MD [address] [place] [address] PCP - General Internal Medicine 12/17/16 Deanne Patterson MD [address] [place] [address] [address] [place] [address] Pulmonary Disease 02/07/21 Telecommunicator Relationship Specialty Start Date End Date Babar Phillip MD [address] [place] [address] PCP - General Internal Medicine 12/17/16 Deanne Patterson MD [address] [place] [address] [address] [place] [address] Pulmonary Disease 02/07/21 Telecommunicator Relationship Specialty Start Date End Date Babar Phillip MD [address] [place] [address] PCP - General Internal Medicine 12/17/16 Deanne Patterson MD [address] [place] [address] Pulmonary Disease 02/07/21 Telecommunicator Relationship Specialty Start Date End Date Babar Phillip MD [address] [place] [address] PCP - General Internal Medicine 12/17/16 Deanne Patterson MD [facility] [address] [place] [address] Pulmonary Disease 02/07/21 Telecommunicator Relationship Specialty Start Date End Date Babar Phillip MD [address] [place], [place] 339781 PCP - General Internal Medicine 12/17/16 Deanne Patterson MD 1945 [facility] [address] [place], [place] 954355 Pulmonary Disease 02/07/21 Telecommunicator Relationship Specialty Start Date End Date Babar Phillip MD [address] [place], [place] 830861 PCP - General Internal Medicine 12/17/16 Deanne Patterson MD 1945 [facility] [address] [place], [place] 081885 Pulmonary Disease 02/07/21 Telecommunicator Relationship Specialty Start Date End Date Babar Phillip MD [address] [place], [place] 298551 PCP - General Internal Medicine 12/17/16 Deanne Patterson MD 1945 [facility] [address] [place], [place] 274775 Pulmonary Disease 02/07/21 Telecommunicator Relationship Specialty Start Date End Date Babar Phillip MD [address] [place], [place] 155971 PCP - General Internal Medicine 12/17/16 Deanne Patterson MD 1945 [facility] [address] [place], [place] 271115 Pulmonary Disease 02/07/21 Telecommunicator Relationship Specialty Start Date End Date Babar Phililp MD [address] [place], [place] 715081 PCP - General Internal Medicine 12/17/16 Deanne Patterson MD [address] [facility] [address] [place], [place] 914035 Pulmonary Disease 02/07/21 Telecommunicator Relationship Specialty Start Date End Date Babar Phillip MD [address] [place], [place] 608051 PCP - General Internal Medicine 12/17/16 Deanne Patterson MD [address] [facility] [address] [place], [place] 548165 Pulmonary Disease 02/07/21 Telecommunicator Relationship Specialty Start Date End Date Babar Phillip MD [address] [place], [place] 755941 PCP - General Internal Medicine 12/17/16 Deanne Patterson MD 1945 [facility] [address] [place], [place] 958835 Pulmonary Disease 02/07/21 Telecommunicator Relationship Specialty Start Date End Date Babar Phillip MD [address] [place], [place] 477391 PCP - General Internal Medicine 12/17/16 Deanne Patterson MD [address] [facility] [address] [place] [address] Pulmonary Disease 02/07/21 Telecommunicator Relationship Specialty Start Date End Date Babar Phillip MD [address] [place] [address] PCP - General Internal Medicine 12/17/16 Deanne Patterson MD [address] [facility] [address] [place] [address] Pulmonary Disease 02/07/21 Telecommunicator Relationship Specialty Start Date End Date Babar Phillip MD [address] [place], [place] 654771 PCP - General Internal Medicine 12/17/16 Telecommunicator Relationship Specialty Start Date End Date Babar Phillip MD [address] [place], [place] 577601 PCP - General Internal Medicine 12/17/16 Telecommunicator Relationship Specialty Start Date End Date Babar Phillip MD [address] [place], [place] 033111 PCP - General Internal Medicine 12/17/16 Deanne Patterson MD [address] [facility] [address] [place], [place] 818355 Pulmonary Disease 02/07/21 Telecommunicator Relationship Specialty Start Date End Date Babar Phillip MD [address] [place], [place] 804391 PCP - General Internal Medicine 12/17/16 Deanne Patterson MD [address] [facility] [address] [place], [place] 839005 Pulmonary Disease 02/07/21 Telecommunicator Relationship Specialty Start Date End Date Babar Phillip MD [address] [place], [place] 824621 PCP - General Internal Medicine 12/17/16 Deanne Patterson MD [address] [facility] [address] [place] [address] Pulmonary Disease 02/07/21 Telecommunicator Relationship Specialty Start Date End Date Babar Phillip MD [address] [place] [address] PCP - General Internal Medicine 12/17/16 Deanne Patterson MD 1945 [facility] [address] [place], [place] 441475 Pulmonary Disease 02/07/21 Telecommunicator Relationship Specialty Start Date End Date Babar Phillip MD [address] [place], [place] 407761 PCP - General Internal Medicine 12/17/16 Deanne Patterson MD 1945 [facility] [address] [place], [place] 320125 Pulmonary Disease 02/07/21 Telecommunicator Relationship Specialty Start Date End Date Babar Phillip MD [address] [place] [address] PCP - General Internal Medicine 12/17/16 Deanne Patterson MD [address] [facility] [address] [place] [address] Pulmonary Disease 02/07/21 Lani Mendez, JOVAN [address] [place] [address] Appointment Setter Family Medicine 04/23/24 Caryn Lowery APRN.TAX REVENUE OFFICER [address] [place] [address] Appointment Setter Internal Medicine 04/23/24 Zeinab Garcia PA-C [address] [place] [address] Appointment Setter Family Medicine 04/23/24 Telecommunicator Relationship Specialty Start Date End Date Babar Phillip MD [address] [place] [address] PCP - General Internal Medicine 12/17/16 Deanne Patterson MD 1945 [facility] [address] [place], [place] 9329[address]85 Pulmonary Disease 02/07/21 Lani Mendez PA-C [address] [place] [address] Appointment Setter Family Medicine 04/23/24 Caryn Lowery APRN.TAX REVENUE OFFICER [address] [place] [address] Appointment Setter Internal Medicine 04/23/24 Zeinab Garcia PA-C [address] [place] [address] Appointment Setter Family Medicine 04/23/24 Telecommunicator Relationship Specialty Start Date End Date Babar Phillip MD [address] [place] [address] [place], [place] [id number] PCP - General Internal Medicine 12/17/16 Deanne Patterson MD [address] [facility] [address] [place], [place] [id number] Pulmonary Disease 02/07/21 Lani Mendez PA-C [address], [place] [id number] [phone] Appointment Setter Family Medicine 04/23/24 Caryn Lowery APRN.[employer]IC[employer] [address] [place] [address] Appointment Setter Internal Medicine 04/23/24 Zeinab Garcia PA-C [address] [place] [address] [facility] 04/23/24 Telecommunicator Relationship Specialty Start Date End Date Babar Phillip MD [address] [place] [address] PCP - General Internal Medicine 12/17/16 Deanne Patterson MD [address] [facility] [address] [place] [address] Pulmonary Disease 02/07/21 Lani Mendez PA-C [address] [place] [address] Appointment Setter Family Medicine 04/23/24 Caryn Lowery APRN.[employer] OFFICER [address] [place] [address] Appointment Setter Internal Medicine 04/23/24 Zeinab Garcia PA-C [address] [place] [address] [facility] Family Medicine 04/23/24 Telecommunicator Relationship Specialty Start Date End Date Babar Phillip MD [address] [place] [address] [place], [place] [address] PCP - General Internal Medicine 12/17/16 Deanne Patterson MD [address] [facility] [address] [place] [address] Pulmonary Disease 02/07/21 Lani Mendez PA-C [address] [place], [place] 0164[address] [phone] Appointment Setter Family Medicine 04/23/24 Caryn Lowery APRN.[employer] OFFICER [address] [place] [address] Appointment Setter Internal Medicine 04/23/24 Zeinab Garcia PA-C [address] [place] [address] Appointment Setter Family Medicine 04/23/24 Telecommunicator Relationship Specialty Start Date End Date Babar Phillip MD [address] [place] [address] PCP - General Internal Medicine 12/17/16 Deanne Patterson MD 1945 [facility] [address] [place] [address] Pulmonary Disease 02/07/21 Lani Mendez PA-C [address] [place], [place] [id number] [phone] Appointment Setter Family Medicine 04/23/24 Caryn Lowery APRN.[employer] OFFICER [address] [place] [address] Appointment Setter Internal Medicine 04/23/24 Zeinab Garcia PA-C [address] [place] [address] Appointment Setter Family [facility] 04/23/24 Telecommunicator Relationship Specialty Start Date End Date Babar Phillip MD [address] [place] [address] PCP - General Internal Medicine 12/17/16 Deanne Patterson MD [address] [facility] [address] [place], [place] [id number] Pulmonary Disease 02/07/21 Lani Mendez PA-C [address] [place] [address] [facility] Family Medicine 04/23/24 Caryn Lowery APRN.[facility] [address] [place] [address] Appointment Setter Internal Medicine 04/23/24 Zeinab Garcia PA-C [address] [place] [address] [facility]/24 Telecommunicator Relationship Specialty Start Date End Date Babar Phillip MD [address] [place] [address] PCP - General Internal Medicine 12/17/16 Deanne Patterson MD [address] [facility] [address] [place], [place] [id number] Pulmonary Disease 02/07/21 Lani Mendez PA-C [address] [place] [address] Appointment Setter Family Medicine 04/23/24 Caryn Lowery APRN.[employer]ICER [address] [place] [address] Appointment Setter Internal Medicine 04/23/24 Zeinab Garcia PA-C [address] [place] [address] Appointment Setter Family Medicine 04/23/24 Telecommunicator Relationship Specialty Start Date End Date Babar Phillip MD [address] [place] [address] PCP - General Internal Medicine 12/17/16 Deanne Patterson MD [facility] [facility] [address] [place] [address] Pulmonary Disease 02/07/21 Lani Mendez PA-C [address] [place] [address] Appointment Setter Family Medicine 04/23/24 Caryn Lowery APRN.[employer]ICER [address] [place] [address] Appointment Setter Internal Medicine 04/23/24 Zeinab Garcia PA-C [address] [place] [address] Appointment Setter Family Medicine 04/23/24 Telecommunicator Relationship Specialty Start Date End Date Babar Phillip MD [address] [place] [address] PCP - General Internal Medicine 12/17/16 Deanne Patterson MD [address] [facility] [address] [place] [address] Pulmonary Disease 02/07/21 Lani Mendez PA-C [address] [place] [address] Appointment Setter Family Medicine 04/23/24 08/06/24 Caryn Lowery APRN.[employer] [address] [place] [address] Appointment Setter Internal Medicine 04/23/24 Zeinab Garcia PA-C [address] [place] [address] Appointment Setter Family [facility] 04/23/24 08/06/24 Telecommunicator Relationship Specialty Start Date End Date Babar Phillip MD [address] [place] [address] PCP - General Internal Medicine 12/17/16 Deanne Patterson MD [address] [facility] [address] [place] [address] Pulmonary Disease 02/07/21 Caryn Lowery APRN.[employer]IC[employer] [address] [place], [place] [address] Appointment Setter Internal Medicine 04/23/24 Telecommunicator Relationship Specialty Start Date End Date Babar Phillip MD [address] [place], [place] [address] PCP - General Internal Medicine 12/17/16 Deanne Patterson MD [address] [facility] [address] [place], [place] [address] Pulmonary Disease 02/07/21 Caryn Lowery APRN.[employer]ICER [address] [place] [address] Appointment Setter Internal Medicine 04/23/24 Telecommunicator Relationship Specialty Start Date End Date Babar Phillip MD [address] [place], [place] 87[address] PCP - General Internal Medicine 12/17/16 Deanne Patterson MD [address] [facility] [address] [place], [place] [address] Pulmonary Disease 02/07/21 Caryn Lowery APRN.[employer]ICER [address] [place] [address] Appointment Setter Internal Medicine 04/23/24 Telecommunicator Relationship Specialty Start Date End Date Babar Phillip MD [address] [place] [address] PCP - General Internal Medicine 12/17/16 Deanne Patterson MD [address] [facility] [address] [place], [place] [address] Pulmonary Disease 02/07/21 Caryn Lowery APRN.[employer] OFFICER [address] [facility] [place] [address] Appointment Setter Internal Medicine 04/23/24 Telecommunicator Relationship Specialty Start Date End Date Babar Phillip MD [address] [facility] [place] [address] PCP - General Internal Medicine 12/17/16 Deanne Patterson MD [address] [facility] [address] [place] [address] Pulmonary Disease 02/07/21 OlderCaryn APRN.[employer] OFFICER [address] [place] [address] Appointment Setter Internal Medicine 04/23/24 Telecommunicator Relationship Specialty Start Date End Date Babar Phillip MD [address] [place] [address] PCP - General Internal Medicine 12/17/16 Deanne Patterson MD [address] [facility] [address] [place], [place] [address] Pulmonary Disease 02/07/21 Caryn Lowery APRN.[employer] OFFICER [address] [facility] [place] [address] Appointment Setter Internal Medicine 04/23/24 Telecommunicator Relationship Specialty Start Date End Date Babar Phillip MD [address] [place] [address] PCP - General Internal Medicine 12/17/16 Deanne Patterson MD [address] [facility] [address] [place] [address] Pulmonary Disease 02/07/21 OlderCaryn APRN.[employer] OFFICER [address] [facility] [place] [address] Appointment Setter Internal Medicine 04/23/24 Telecommunicator Relationship Specialty Start Date End Date Babar Phillip MD [address] [facility] [place] [address] PCP - General Internal Medicine 12/17/16 Deanne Patterson MD [facility] [address] [place] [address] Pulmonary Disease 02/07/21 Older, LILI Rubin.[employer] RE[employer] OFFICER [address] [facility] [place] [address] Appointment Setter Internal Medicine 04/23/24 Telecommunicator Relationship Specialty Start Date End Date Babar Phillip MD [address] [address] PCP - General Internal Medicine 12/17/16 Deanne Patterson MD [address] [facility] [address] [place] [address] Pulmonary Disease 02/07/21 Sebastián, LILI Rubin.[employer] RE[employer]UE OFFICER [address] [facility] [place] [address] Appointment Setter Internal Medicine 04/23/24 Telecommunicator Relationship Specialty Start Date End Date Babar Phillip MD [address] [facility] [place] [address] PCP - General Internal Medicine 12/17/16 Deanne Patterson MD [address] [facility] [address] [place], [place] [address] Pulmonary Disease 02/07/21 Older, LILI Rubin.[employer] RE[employer]UE OFFICER [address] [place], [place] [address] Appointment Setter Internal Medicine 04/23/24 Telecommunicator Relationship Specialty Start Date End Date Babar Phillip MD [address] [place], [place] [address] PCP - General Internal Medicine 12/17/16 Deanne Patterson MD [address] [facility] [address] [place], [place] [id number] Pulmonary Disease 02/07/21 Older, LILI Rubin.TA[employer] REVENUE OFFICER [address] [facility], [place] [address] Appointment Setter Internal Medicine 04/23/24 Team Status: Active Member Role/Relationship Status Dates Dr. Babar Phillip MD Primary Care Provider Active Team Status: Inactive Member Role/Relationship Status Dates Dr. Babar Phillip MD Primary Care Provider Active Start: December 24, 2024 End: December 25, 2024 Dr. Dianelys Fenton MD Emergency Provider Active S tart: December 24, 2024 End: December 25, 2024 Telecommunicator Relationship Specialty Start Date End Date Babar Phillip MD [address] [place], [place] [address] PCP - General Internal Medicine 12/17/16 Deanne Patterson MD [address] [facility] [address] [place], [place] [id number] Pulmonary Disease 02/07/21 Older, LILI Rubin.[employer] RE[employer]UE OFFICER [address] [place], [place] [id number] [facility] Internal Medicine 04/23/24 Care Team (unrecognized sect ion and content) Care Team Personnel Name: SARAH GORDILLO MD Member Role: Primary Care Physician Address: Address: [facility] [facility] [place] [address]- Care Team Related Persons Name: KATIE REINOSO Name: KATIE REINOSO Name: KATIE REINOSO Name: KATIE REINOSO Name: KATIE REINOSO Name: ASAF GUEVARA FOR RECORDS PERTAINING TO PATIENTS WHO ARE [...] BE BASED ON THE PRIMARY CLINICAL RECORDS. [employer] provides no warranty or guarantee of the accuracy or completeness of information in this document.
--- OUTSIDE RECORDS SUMMARY | 2024-12-26 21:30 | XMS RPT_ITS | CCD ---
Author Organization [facility] Care Team Providers Care Tax Record Clerk Name Role Phone Babar Phillip MD Primary Care Provider Yesenia LUTZ, Deanne Unavailable RAND LUTZ, DR SMITH Primary Care Physician Babar Phillip MD Primary Care Provider Yesenia LUTZ, Deanne Unavailable ARAVIND ROQUE Attending Unavailable Dr. Babar Phillip Primary Care Provider Dr. Babar Phillip Referring Provider Fabricio CONTINUOUS IMPROVEMENT COACH, CONTINUOUS IMPROVEMENT COACH-C Coco Attending Provider [phone] Babar Phillip MD Primary Care Provider Dr. [...] Unavailable Denbow PA-C, Lani L Unavailable Older ADMINISTRATOR [facility]AC[facility].PRESALES CONSULTANT, Caryn Unavailable Bogner PA-C, Zeinab Unavailable Denbow PA-C, Lani L Unavailable [phone] Bogner PA-C, Zeinab Unavailable Kenji LUTZ, Dr. Ellis Primary Care Provider Eliceo LUTZ, Dr. Ivory Emergency Provider Unavailab staci PHILLIP MD, DR BABAR Marx Primary Care Unavailwellington NGUYEN MD, DAVID Felix Attending Unavailable JESÚS HERRERA DO Attending Unavailable KENJI LUTZ, DR BABAR Marx Primary Care Unavailabl Dianelys Elam Attending Unavailable Ganta, Babar Primary Care Unavailable Yoseph Peña Attending Unavailable Ganta, Babar Primary Care Unavailable Ganta, Babar Primary Care Unavailable Provider, Ed Physician Attending Unavailab le Ganta, Babar Primary Care Unavailable Ganta, Babar Referring Unavailable Regalado CONTINUOUS IMPROVEMENT COACH, Coco Attending Unavailable Ganta, Babar Primary Care Unavailable Regalado CONTINUOUS IMPROVEMENT COACH, Coco Attending Unavailable Regalado CONTINUOUS IMPROVEMENT COACH, Coco Referring Unavailable GANTA, BABAR Primary Care [...] sources) Codeine Drug Allergy 5 Rash, Unknown [facility] Work Phone: Penicillins (antibiotic) (3 sources) Amoxicillin Drug Allergy 5 Other: See Comments [facility] Sulfonamides (antibiotic) (3 sources) Sulfonamides (Antibiotic) Drug Allergy 5 [facility] (20 sources) Amoxicillin; Translations: [amoxicillin] Drug Allergy 5 Other: See Comments [facility] Comment on above: YEAST INFECTIONS (20 sources) Codeine; Translations: [codeine] Drug Allergy 5 Anaphylaxis [facility] Work Phone: (20 sources) Sulfonamides (Antibiotic); Translations: [sulfa drugs] Propensity to adverse reactions 5 [facility] Work Phone: (20 sources) Propoxyphene N-Acetaminophen; Translations: [PROPOXYPHENE N-ACETAMINOPHEN] Propensity to adverse reactions 7 [facility] Work Phone: (5 sources) Penicillin; Translations: [penicillins] Drug Allergy [facility] (20 sources) Propoxyphene; Translations: [PROPOXYPHENE] Drug Allergy 9 Rash, Unknown [facility] (7 sources) Propoxyphene; Translations: [propoxyphene napsylate] Drug Allergy 3 Rash [facility] (6 sources) Sulfonamides (Antibiotic) Allergy to substance 3 Anaphylaxis [facility] (2 sources) Ritonavir Drug Allergy 3 Vomiting [facility] (3 sources) nirmatrelvir; Translations: [nirmatrelvir] Allergy to substance 3 Vomiting [facility] (4 sources) Sulfonamide; Translations: [sulfa drugs] Drug allergy [facility] (1 source) Penicillin; Translations: [penicillins] Drug Allergy [facility] (1 source) celecoxib Drug Allergy 5 PT UNSURE OF REACTION [facility] (1 source) Amoxicillin Drug Allergy 5 [facility] (1 source) celecoxib Drug Allergy 5 [facility] (1 source) Codeine Drug Allergy 5 [facility] (1 source) Ritonavir Drug Allergy 5 [facility] (1 source) Sulfonamides (Antibiotic) Drug allergy (disorder) 5 [facility] Medications Current Medications Medication Drug Class(es) Dates Sig (Normalized) Sig (Original) [id number] 200 actuat albuterol 0.09 mg/actuat metered dose [...] Comment on above: Take 1 tablet by [facility] once daily. azithromycin 250 mg oral tablet [...] extended release oral tablet (1 source) Uncompetitive K-sseddg-E-aspartate Receptor Antagonist, Sigma-1 Agonist Start: End: take [...] complication, without long-term current use of insulin ([facility]) , Morbid obesity with BMI of 50.0-59.9, adult ([facility]) Inject 1.5 mg subcutaneously one time a [...] complication, without long-term current use of insulin ([facility]) Inject 0.75 mg subcutaneously one time a [...] Start: 11-13-2019 take 2 tablets by mo [facility] once daily Famotidine (Pepcid) 20 mg tablet [...] / neomycin 3.5 mg/ml / polymyxin b [id number] unt/ml otic suspension (2 sources) Aminoglycoside Antibacterial, Polymyxin-class Antibacterial, Corticosteroid Start: 12-22-2024 End: 12-29-2024 strvhdih-vvaketywf-fksvftfkw isone (CORTISPORIN) 3.5-10,000-1 mg/mL-unit/mL-% otic suspension Use [...] Start: 05-15-2021 take 1 capsule by mo [facility] once daily Levothyroxine 50 mcg capsule Active [...] on above: Take 2 tablets by mo [facility] once daily for 4 days. Take daily [...] Comment on above: Take 1 tablet by [facility] every 6 hours as needed for pain [...] Comment on above: Take 2 capsules by [facility] three times a day as needed for [...] use Start: 01-22-2022 take 1 puff(s) by [facility] twice daily Budesonide-Formoterol (Symbicort) 160-4. 5 mcg/actuation HFA aerosol inhaler Active 2 PUFF INHALATION TWICE A DAY January 22, 2022 6:57am administer with spacer, rinse mouth after each use Start: 01-22-2022 take 1 puff(s) by [facility] twice daily Budesonide-Formoterol (Symbicort) 160-4. 5 mcg/actuation [...] 03-12-2021 End: 03-12-2021 Nebulizer Discontinued 0 .RO PAMUNKEY .MEDSUPPLY March 11, 2021 11:00pm March 12, 2021 10:32am As directed Start: 03-12-2021 End: 03-12-2021 Nebulizer Discontinued 0 .RO PAMUNKEY .MEDSUPPLY March 12, 2021 12:00am March 12, [...] on above: Take 1 capsule by mo [facility] daily at bedtime. TAKE 1 CAPSULE BY [facility] AT BEDTIME perflutren lipid microspheres 1.3 mL [...] 10 mL injection (DEFINITY) polyethylene glycol 3350 91297 mg powder for oral solution (8 sources) [...] Discontinued Start: 02-25-2024 take 1 tablet by [facility] every twelve hours 1 hour(s) after mealtime [...] Reference Range Facility CNOVon 12-26-2024 CNOV Normal [facility] Absolute lymphocyte countOrd ered By: Dianelys Fenton on 12-25-2024 Lymphocytes Auto (Unsp spec) [#/Vol] 3.10 10*3/uL 0.83-4.51 [facility] Absolute neutrophil countOrd ered By: Dianelys Fenton on 12-25-2024 Neutrophils (Bld) [#/Vol] 8.3 10*3/uL High 2.0-7.7 [facility] Anion gap in Serum or Plasma Ordered By: Dianelys Fenton on 12-25-2024 Anion gap [Moles/Vol] 11 mmol/L 5-15 [facility] Automated lymphocyte count a s percentage of total leukocytesOrdered By: Dianelys Fenton on 12-25-2024 Lymphocytes/100 WBC Auto (Unsp spec) 25.0 % - [facility] BUN/creatinine ratioOrdered By: Dianelys Fenton on 12-25-2024 Urea nitrogen/Creatinine [Mass ratio] 17.3 mg/mg - [facility] Basic Metabolic Profile (BMP )on 12-25-2024 BUN/CRE 17.3 RATIO Normal - [facility] Comment on above: Performed By: #### L 100.0100, L500.2500, L503.6005 #### [facility] [address] [place], [address] Calcium [Mass/Vol] 9.5 mg/dL Normal 7.6-11.0 [facility] Comment on above: Performed By: #### L 100.0100, L500.2500, L503.6005 #### [facility] [address] [place], [address] Chloride [Moles/Vol] 102 mmol/L Normal 98-108 [facility] Comment on above: Performed By: #### L 100.0100, L500.2500, L503.6005 #### [facility] [address] [place], [address] CO2 [Moles/Vol] 25.8 mmol/L Normal 21.0-32.0 [facility] Comment on above: Performed By: #### L 100.0100, L500.2500, L503.6005 #### [facility] [address] [place], [address] Creatinine [Mass/Vol] 0.78 mg/dL Normal 0.70-1.20 [facility] Comment on above: Performed By: #### L 100.0100, L500.2500, L503.6005 #### [facility] [address] [place], [address] ECRCL 126.82 ml/min Normal 50-250 [facility] Comment on above: Performed By: #### L 100.0100, L500.2500, L503.6005 #### [facility] [address] [place], [address] GAP 11 Normal 5-15 [facility] Comment on above: Performed By: #### L 100.0100, L500.2500, L503.6005 #### [facility] [address] [place], [address] GFR/1.73 sq M.predicted among non-blacks MDRD (S/P/Bld) [Vol rate/Area] 95 mL/min/{1.73_m2} Normal >60 [facility] Comment on above: Result Comment: mL/m in/1.73m2 CKD-EPI Creatinine Equation (2020) Performed By: #### L 100.0100, L500.2500, L503.6005 #### [facility] [address] [place], [address] Glucose [Mass/Vol] 102 mg/dL High 70-99 [facility] Comment on above: Performed By: #### L 100.0100, L500.2500, L503.6005 #### [facility] [address] [place], [address] Potassium [Moles/Vol] 3.9 mmol/L Normal 3.3-5.1 [facility] Comment on above: Performed By: #### L 100.0100, L500.2500, L503.6005 #### [facility] [address] [place], [address] Sodium [Moles/Vol] 139 mmol/L Normal 133-145 [facility] Comment on above: Performed By: #### L 100.0100, L500.2500, L503.6005 #### [facility] [address] [place], [address] Urea nitrogen [Mass/Vol] 14 mg/dL Normal 4-19 [facility] Comment on above: Performed By: #### L 100.0100, L500.2500, L503.6005 #### [facility] [address] [place], [address] Basophil percentageOrdered B y: Dianelys Fenton on 12-25-2024 Basophils/100 WBC (Bld) 0.3 % 0-1 [facility] CBC W/Diff, Automatedon 12-15 Absolute Lymph 3.10 X10 3/uL Normal 0.83-4.51 [facility] Comment on above: Performed By: #### L 100.0100, L500.2500, L503.6005 #### [facility] [address] [place], [address] Absolute Neut 8.3 X10 3/uL High 2.0-7.7 [facility] Comment on above: Performed By: #### L 100.0100, L500.2500, L503.6005 #### [facility] [address] [place], [address] Basophils/100 WBC (Bld) 0.3 % Normal 0-1 [facility] Comment on above: Performed By: #### L 100.0100, L500.2500, L503.6005 #### [facility] [address] [place], [address] Eosinophils/100 WBC (Bld) 0.5 % Normal 0-5 [facility] Comment on above: Performed By: #### L 100.0100, L500.2500, L503.6005 #### [facility] [address] [place], [address] Erythrocyte distribution width (RBC) [Ratio] 14.6 % Normal 11.6-14.6 [facility] Comment on above: Performed By: #### L 100.0100, L500.2500, L503.6005 #### [facility] [address] [place], [address] Hematocrit (Bld) [Volume fraction] 44.1 % Normal 37-47 [facility] Comment on above: Performed By: #### L 100.0100, L500.2500, L503.6005 #### [facility] [address] [place], [address] Hemoglobin (Bld) [Mass/Vol] 13.7 g/dL Normal 12.0-15.0 [facility] Comment on above: Performed By: #### L 100.0100, L500.2500, L503.6005 #### [facility] [address] [place], [address] IG% 0.500 Normal 0.0-0.9 [facility] Comment on above: Result Comment: IG% - Immature Granulocytes (promyelocytes, myelocytes and metamyelocytes) > 1% indicates that a LEFT SHIFT is Present. Performed By: #### L 100.0100, L500.2500, L503.6005 #### [facility] [address] [place], [address] Lymphocytes/100 WBC (Bld) 25.0 % Normal 19-41 [facility] Comment on above: Performed By: #### L 100.0100, L500.2500, L503.6005 #### [facility] [address] [place], [address] MCH (RBC) [Entitic mass] 29.4 pg Normal 27.0-32.0 [facility] Comment on above: Performed By: #### L 100.0100, L500.2500, L503.6005 #### [facility] [address] [place], [address] MCHC (RBC) [Mass/Vol] 31.1 g/dL Low 32-36 [facility] Comment on above: Performed By: #### L 100.0100, L500.2500, L503.6005 #### [facility] [address] [place], [address] MCV (RBC) [Entitic vol] 94.6 fL Normal 81-99 [facility] Comment on above: Performed By: #### L 100.0100, L500.2500, L503.6005 #### [facility] [address] [place], [address] Monocytes/100 WBC (Bld) 7.0 % Normal 0-10 [facility] Comment on above: Performed By: #### L 100.0100, L500.2500, L503.6005 #### [facility] [address] [place], [address] Neutrophils/100 WBC (Bld) 66.7 % Normal 47-70 [facility] Comment on above: Performed By: #### L 100.0100, L500.2500, L503.6005 #### [facility] [address] [place], [address] Nucleated RBC (Bld) [#/Vol] 0 10*3/uL Normal 0-5 [facility] Comment on above: Performed By: #### L 100.0100, L500.2500, L503.6005 #### [facility] [address] [place], [address] Platelet mean volume (Bld) [Entitic vol] 9.1 fL Normal 6.2-12.0 [facility] Comment on above: Performed By: #### L 100.0100, L500.2500, L503.6005 #### [facility] [address] [place], [address] Platelets (Bld) [#/Vol] 240 10*3/uL Normal 150-450 [facility] Comment on above: Performed By: #### L 100.0100, L500.2500, L503.6005 #### [facility] [address] [place], [address] RBC (Bld) [#/Vol] 4.66 10*6/uL Normal 4.2-5.4 [facility] Comment on above: Performed By: #### L 100.0100, L500.2500, L503.6005 #### [facility] [address] [place], [address] RDW SD 50.8 fl High 35.1-43.9 [facility] Comment on above: Performed By: #### L 100.0100, L500.2500, L503.6005 #### [facility] [address] [place], [address] WBC (Bld) [#/Vol] 12.4 10*3/uL High 4.4-11.0 [facility] Comment on above: Performed By: #### L 100.0100, L500.2500, L503.6005 #### [facility] [address] [place], [address] CNOVon 12-25-2024 CNOV Normal [facility] Carbon dioxide, total [Moles /volume] in Central venous bloodOrdered By: Dianelys Fenton on 12-25-2024 CO2 [Moles/Vol] 25.8 mmol/L 21.0-32.0 [facility] Chloride assayOrdered By: Abad Fenton on 12-25-2024 Chloride [Moles/Vol] 102 mmol/L 98-108 [facility] Emergency Department Summary on 12-25-[address] [facility] Medical Records Department [address] [place] [address] Emergency Department Summary 12/25/24 MR#: [id number] Acct: [id number] Name: DARREN REINOSO Rep #: [id number] : 1980 44 From: Dianelys Fenton MD [...] She states that yesterday she went to [place] [facility] to be seen and they discharged her. States that today she went to urgent care and they also discharged her there as well. She denies any fever, chills, nausea or vomiting. Denies any fatigue. States she feels normal. Hx of MRSA in her finger she reports. [facility] Medical History History of alcohol abuse Nausea [...] hand exposu (more content not included)... Normal [facility] Eosinophil percentageOrdered By: Dianelys Fenton on 12-25-2024 Eosinophils/100 WBC (Bld) 0.5 % 0-5 [facility] Erythrocyte distribution wid th ratioOrdered By: Dianelys Fenton on 12-25-2024 Erythrocyte distribution width (RBC) [Ratio] 14.6 % 11.6-14.6 [facility] Erythrocyte distribution wid th standard deviationOrdered By: Dianelys Fenton on 12-25-2024 Erythrocyte distribution width (RBC) [Ratio] 50.8 fl High 35.1-43.9 [facility] Glomerular filtration rate ( GFR) estimation/1.73 sq m using serum, plasma, or whole bOrdered By: Dianelys Fenton on 12-25-2024 GFR/1.73 sq M.predicted among non-blacks MDRD (S/P/Bld) [Vol rate/Area] 95 mL/min/{1.73_m2} >60 [facility] Comment on above: mL/min/1.73m2 CKD-EP I Creatinine Equation (2020) Hematocrit Auto (Bld) [Volum e fraction]Ordered By: Dianelys Fenton on 12-25-2024 Hematocrit (Bld) [Volume fraction] 44.1 % 37-47 [facility] Hemoglobin measurementOrdere d By: Dianelys Fenton on 12-25-2024 Hemoglobin (Bld) [Mass/Vol] 13.7 g/dL 12.0-15.0 [facility] Immature granulocytes/100 WB C Auto (Bld)Ordered By: Dianelys Fenton on 12-25-2024 Immature granulocytes/100 WBC (Bld) 0.500 % 0.0-0.9 [facility] Comment on above: IG% - Immature Granu locytes (promyelocytes, myelocytes and metamyelocytes) > 1% indicates that a LEFT SHIFT is Present. Lactic Acidon 12-25-2024 Lactate [Moles/Vol] mmol/L Normal 0.0-2.0 [facility] Comment on above: Order Comment: Y Performed By: #### L 100.0100, L500.2500, L503.6005 #### [facility] [address] [place], [place], [id number] Lactic acid measurementOrder ed By: Dianelys Fenton on 12-25-2024 Lactate [Moles/Vol] mmol/L 0.0-2.0 [facility] MCV (mean corpuscular volume ) determinationOrdered By: Dianelys Fenton on 12-25-2024 MCV (RBC) [Entitic vol] 94.6 fL 81-99 [facility] Mean corpuscular hemoglobin (MCH) determinationOrdered By: Dianelys Fenton on 12-25-2024 MCH (RBC) [Entitic mass] 29.4 pg 27.0-32.0 [facility] Mean corpuscular hemoglobin concentration (MCHC) determinationOrdered By: Dianelys Fenton on 12-25-2024 MCHC (RBC) [Mass/Vol] 31.1 g/dL Low 32-36 [facility] Mean platelet volume determi nationOrdered By: Dianelys Fenton on 12-25-2024 Platelet mean volume (Bld) [Entitic vol] 9.1 fL 6.2-12.0 [facility] Monocyte percentageOrdered B y: Dianelys Fenton on 12-25-2024 Monocytes/100 WBC (Bld) 7.0 % 0-10 [facility] Neutrophil percentageOrdered By: Dianelys Fenton on 12-25-2024 Neutrophils/100 WBC (Bld) 66.7 % 47-70 [facility] Nucleated red blood cell per centageOrdered By: Dianelys Fenton on 12-25-2024 Nucleated RBC/100 WBC (Bld) [Ratio] 0 % 0-5 [facility] Platelet countOrdered By: Abad Fenton on 12-25-2024 Platelets (Bld) [#/Vol] 240 10*3/uL 150-450 [facility] Potassium measurement (mass/ volume)Ordered By: Dianelys Fenton on 12-25-2024 Potassium (Unsp spec) [Mass/Vol] 3.9 mmol/L 3.3-5.1 [facility] RBC Auto (Bld) [#/Vol]Ordere d By: Dianelys Fenton on 12-25-2024 RBC (Bld) [#/Vol] 4.66 10*6/uL 4.2-5.4 [facility] Serum creatinine measurement (mass/volume)Ordered By: Dianelys Fenton on 12-25-2024 Creatinine [Mass/Vol] 0.78 mg/dL 0.70-1.20 [facility] Serum glucose measurement (m ass/volume)Ordered By: Dianelys Fenton on 12-25-2024 Glucose [Mass/Vol] 102 mg/dL High 70-99 [facility] Serum or plasma calcium juan urement (mass/volume)Ordered By: Dianelys Fenton on 12-25-2024 Calcium [Mass/Vol] 9.5 mg/dL 7.6-11.0 [facility] Serum or plasma urea nitroge n measurement (mass/volume)Ordered By: Dianelys Fenton on 12-25-2024 Urea nitrogen [Mass/Vol] 14 mg/dL 4-19 [facility] Sodium levelOrdered By: Vince Fenton on 12-25-2024 Sodium [Moles/Vol] 139 mmol/L 133-145 [facility] White blood cell (WBC) count Ordered By: Dianelys Fenton on 12-25-2024 WBC (Bld) [#/Vol] 12.4 10*3/uL High 4.4-11.0 [facility] CNOVon 12-24-2024 CNOV Normal [facility] CBC W Auto Differential pane l (Bld)on 12-22-2024 Basophils (Bld) [#/Vol] 0.04 10*3/uL Normal <0.11 [facility] Comment on above: Order Comment: Speci men Type: BLOOD SPECIMENOrdering Facility: [facility] Address: [address] [place] [address] Performed By: #### 5 7021-8 ####[facility] [id number] [place] [address] [place] Basophils/100 WBC (Bld) 0.4 % Normal [facility] Comment on above: Order Comment: Speci men Type: BLOOD SPECIMENOrdering Facility: [facility] Address: [address] [place] [address] Performed By: #### 5 7021-8 ####[facility] [id number] [place] [address] [place] Differential cell count method Nom (Bld) Auto Normal [facility] Comment on above: Order Comment: Speci men Type: BLOOD SPECIMENOrdering Facility: [facility] Address: [address] [place] [address] Performed By: #### 5 7021-8 ####[facility] [id number] [place] [address] [place] Eosinophils (Bld) [#/Vol] 0.07 10*3/uL Normal <0.46 [facility] Comment on above: Order Comment: Speci men Type: BLOOD SPECIMENOrdering Facility: [facility] Address: [address] [place] [address] Performed By: #### 5 7021-8 ####[facility] [id number] [place] [address] [place] Eosinophils/100 WBC (Bld) 0.7 % Normal [facility] Comment on above: Order Comment: Speci men Type: BLOOD SPECIMENOrdering Facility: [facility] Address: [address] [place] [address] Performed By: #### 5 7021-8 ####[facility] [id number] [place] [address] [place] Erythrocyte distribution width (RBC) [Ratio] 14.7 % Normal 11.5-15.0 [facility] Comment on above: Order Comment: Speci men Type: BLOOD SPECIMENOrdering Facility: [facility] Address: [address] [place] [address] Performed By: #### 5 7021-8 ####[facility] [id number] [place] [address] [place] Hematocrit (Bld) [Volume fraction] 46.5 % High 36.0-46.0 [facility] Comment on above: Order Comment: Speci men Type: BLOOD SPECIMENOrdering Facility: [facility] Address: [address] [place] [address] Performed By: #### 5 7021-8 ####[facility] [id number] [address], [facility] [place] Hemoglobin (Bld) [Mass/Vol] 14.7 g/dL Normal 11.5-15.5 [facility] Comment on above: Order Comment: Speci men Type: BLOOD SPECIMENOrdering Facility: [facility] Address: [address] [place] [address] Performed By: #### 5 7021-8 ####[facility]CL[facility] [id number] [place] [id number] [place] Immature granulocytes (Bld) [#/Vol] 0.04 10*3/uL Normal <0.10 [facility] Comment on above: Order Comment: Speci men Type: BLOOD SPECIMENOrdering Facility: [facility] Address: [address] [place] [address] Performed By: #### 5 7021-8 ####[facility] [id number] [place] [address] [place] Immature granulocytes/100 WBC (Bld) 0.4 % Normal [facility] Comment on above: Order Comment: Speci men Type: BLOOD SPECIMENOrdering Facility: [facility] Address: [address] [place] [address] Performed By: #### 5 7021-8 ####[facility] [id number] [place] [address] [place] Lymphocytes (Bld) [#/Vol] 2.37 10*3/uL Normal 1.00-4.00 [facility] Comment on above: Order Comment: Speci men Type: BLOOD SPECIMENOrdering Facility: [facility] Address: [address] [place] [address] Performed By: #### 5 7021-8 ####[facility] LABCLIA [id number] [place] [id number] [place] Lymphocytes/100 WBC (Bld) 22.9 % Normal [facility] Comment on above: Order Comment: Speci men Type: BLOOD SPECIMENOrdering Facility: [facility] Address: [address] [place] [address] Performed By: #### 5 7021-8 ####[facility] LABCLIA [id number] [place] [address] [place] MCH (RBC) [Entitic mass] 29.9 pg Normal 26.0-34.0 [facility] Comment on above: Order Comment: Speci men Type: BLOOD SPECIMENOrdering Facility: [facility] Address: [address] [place] [address] Performed By: #### 5 7021-8 ####[facility] LABIA [id number] [place] [address] [place] MCHC (RBC) [Mass/Vol] 31.6 g/dL Normal 30.5-36.0 [facility] Comment on above: Order Comment: Speci men Type: BLOOD SPECIMENOrdering Facility: [facility] Address: [address] [place] [address] Performed By: #### 5 7021-8 ####[facility] LABIA [id number] [place] [address] [place] MCV (RBC) [Entitic vol] 94.5 fL Normal 80.0-100.0 [facility] Comment on above: Order Comment: Speci men Type: BLOOD SPECIMENOrdering Facility: [facility] Address: [address] [place] [address] Performed By: #### 5 7021-8 ####[facility] LABIA [id number] [place] [address] [place] Monocytes (Bld) [#/Vol] 0.71 10*3/uL Normal <0.87 [facility] Comment on above: Order Comment: Speci men Type: BLOOD SPECIMENOrdering Facility: [facility] Address: [address] [place] [address] Performed By: #### 5 7021-8 ####[facility] LABIA [id number] [address] [place] Monocytes/100 WBC (Bld) 6.8 % Normal [facility] Comment on above: Order Comment: Speci men Type: BLOOD SPECIMENOrdering Facility: [facility] Address: [address] [place] [address] Performed By: #### 5 7021-8 ####[facility] LABCLIA [id number] [address] [address] [place] Neutrophils (Bld) [#/Vol] 7.14 10*3/uL Normal 1.45-7.50 [facility] Comment on above: Order Comment: Speci men Type: BLOOD SPECIMENOrdering Facility: [facility] Address: [address] [place] [address] Performed By: #### 5 7021-8 ####[facility] LABCLIA [id number] [place] [address] [place] Neutrophils/100 WBC (Bld) 68.8 % Normal [facility] Comment on above: Order Comment: Speci men Type: BLOOD SPECIMENOrdering Facility: [facility] Address: [address] [place] [address] Performed By: #### 5 7021-8 ####[facility] LABCLIA [id number] [place] [address] [place] Nucleated RBC (Bld) [#/Vol] 10*3/uL Normal <0.01 [facility] Comment on above: Order Comment: Speci men Type: BLOOD SPECIMENOrdering Facility: [facility] Address: [address] [place] [address] Performed By: #### 5 7021-8 ####[facility] LABCLIA [id number] [place] [address] [place] Nucleated RBC/100 WBC (Bld) [Ratio] 0.0 /100 WBC Normal [facility] Comment on above: Order Comment: Speci men Type: BLOOD SPECIMENOrdering Facility: [facility] Address: [address] [place] [address] Performed By: #### 5 7021-8 ####[facility] LABCLIA [id number] [address] [place] [address] [place] Platelet mean volume (Bld) [Entitic vol] 10.0 fL Normal 9.0-12.7 [facility] Comment on above: Order Comment: Speci men Type: BLOOD SPECIMENOrdering Facility: [facility] Address: [address] [place] [address] Performed By: #### 5 7021-8 ####[facility] LABIA [id number] [address] [place] [address] [place] Platelets (Bld) [#/Vol] 273 10*3/uL Normal 150-400 [facility] Comment on above: Order Comment: Speci men Type: BLOOD SPECIMENOrdering Facility: [facility] Address: [address] [place] [address] Performed By: #### 5 7021-8 ####[facility] LABIA [id number] [place] [address] [place] RBC (Bld) [#/Vol] 4.92 10*6/uL Normal 3.90-5.20 [facility] Comment on above: Order Comment: Speci men Type: BLOOD SPECIMENOrdering Facility: [facility] Address: [address] [place] [address] Performed By: #### 5 7021-8 ####[facility] LABIA [id number] [address] [address] [place] WBC (Bld) [#/Vol] 10.37 10*3/uL Normal 3.70-11.00 [facility] Comment on above: Order Comment: Speci men Type: BLOOD SPECIMENOrdering Facility: [facility] Address: [address] [place] [address] Performed By: #### 5 7021-8 ####[facility] LABIA [id number] [address] [address] [place] CNOVon 12-22-2024 CNOV Normal [facility] metabolic 2000 panelon 12-22-2024 Albumin [Mass/Vol] 4.1 g/dL Normal 3.9-4.9 [facility] Comment on above: Order Comment: Speci men Type: BLOOD SPECIMENOrdering Facility: [facility] Address: [address] [place] [address] Performed By: #### 2 4323-8 ####[facility] LABCLIA [id number] [address], [facility] [place] ALP [Catalytic activity/Vol] 109 U/L Normal 34-123 [facility] Comment on above: Order Comment: Speci men Type: BLOOD SPECIMENOrdering Facility: [facility] Address: [address] [place] [address] Performed By: #### 2 4323-8 ####[facility] LABCLIA [id number] [place] [id number] [place] ALT [Catalytic activity/Vol] 20 U/L Normal 7-38 [facility] Comment on above: Order Comment: Speci men Type: BLOOD SPECIMENOrdering Facility: [facility] Address: [address] [place] [address] Performed By: #### 2 4323-8 ####[facility] LABCLIA [id number] [place] [id number] [place] Anion gap [Moles/Vol] 13 mmol/L Normal 8-15 [facility] Comment on above: Order Comment: Speci men Type: BLOOD SPECIMENOrdering Facility: [facility] Address: [address] [place] [address] Performed By: #### 2 4323-8 ####[facility] LABCLIA [id number] [address] [address] [place] AST [Catalytic activity/Vol] 21 U/L Normal 13-35 [facility] Comment on above: Order Comment: Speci men Type: BLOOD SPECIMENOrdering Facility: [facility] Address: [address] [place], [place] [address] Performed By: #### 2 4323-8 ####[facility] LABCLIA [id number] [address] [address] [place] Bilirubin [Mass/Vol] 0.3 mg/dL Normal 0.2-1.3 [facility] Comment on above: Order Comment: Speci men Type: BLOOD SPECIMENOrdering Facility: [facility] Address: [address] [place], [place] [address] Performed By: #### 2 4323-8 ####[facility] LABCLIA [id number] [place] [address] [place] Calcium [Mass/Vol] 9.8 mg/dL Normal 8.5-10.2 [facility] Comment on above: Order Comment: Speci men Type: BLOOD SPECIMENOrdering Facility: [facility] Address: [address] [place], [place] [address] Performed By: #### 2 4323-8 ####[facility] LABCLIA [id number] [place] [address] [place] Chloride [Moles/Vol] 103 mmol/L Normal 98-107 [facility] Comment on above: Order Comment: Speci men Type: BLOOD SPECIMENOrdering Facility: [facility] Address: [address] [place], [place] [address] Performed By: #### 2 4323-8 ####[facility] LABCLIA [id number] [place] [id number] [place] CO2 [Moles/Vol] 23 mmol/L Normal 22-30 [facility] Comment on above: Order Comment: Speci men Type: BLOOD SPECIMENOrdering Facility: [facility] Address: [address] [place], [place] [address] Performed By: #### 2 4323-8 ####[facility] LABCLIA [id number] [address] [address] [place] Creatinine [Mass/Vol] 0.70 mg/dL Normal 0.58-0.96 [facility] Comment on above: Order Comment: Rashad irwin Type: BLOOD SPECIMENOrdering Facility: [facility] Address: [address] [place] [address] Performed By: #### 2 4323-8 ####[facility] [id number] [place] [id number] [place] eGFRcr SerPlBld CKD-EPI 2020 108 mL/min/1.73m??? Normal >=60 [facility] Comment on above: Order Comment: Rashad irwin Type: BLOOD SPECIMENOrdering Facility: [facility] Address: [address] [place] [address] Result Comment: Jen mated Glomerular Filtration Rate [...] actual GFR. Performed By: #### 2 4323-8 ####[facility] LABIA [id number] [address] [address] [place] Glucose [Mass/Vol] 83 mg/dL Normal 74-99 [facility] Comment on above: Order Comment: Rashad irwin Type: BLOOD SPECIMENOrdering Facility: [facility] Address: [address] [place] [address] Result Comment: The [place] Diabetes Association (ADA) provides guidance for cutoff [...] Standards of Medical Care in Diabetes 2016, [place] Diabetes Association. Diabetes Care. 2016.39(Suppl 1). Performed By: #### 2 4323-8 ####[facility] LABCLIA [id number] [address] [address] [place] Potassium [Moles/Vol] 4.4 mmol/L Normal 3.7-5.1 [facility] Comment on above: Order Comment: Speci men Type: BLOOD SPECIMENOrdering Facility: [facility] Address: [address] [place] [address] Performed By: #### 2 4323-8 ####[facility] LABIA [id number] [address] [address] [place] Protein [Mass/Vol] 7.7 g/dL Normal 6.3-8.0 [facility] Comment on above: Order Comment: Speci men Type: BLOOD SPECIMENOrdering Facility: [facility] Address: [address] [place], [place] [address] Performed By: #### 2 4323-8 ####[facility] LABIA [id number] [address] [address] [place] Sodium [Moles/Vol] 139 mmol/L Normal 136-144 [facility] Comment on above: Order Comment: Speci men Type: BLOOD SPECIMENOrdering Facility: [facility] Address: [address] [place] [address] Performed By: #### 2 4323-8 ####[facility] LABIA [id number] [address] [address] [place] Urea nitrogen [Mass/Vol] 9 mg/dL Normal 7-21 [facility] Comment on above: Order Comment: Speci men Type: BLOOD SPECIMENOrdering Facility: [facility] Address: [address] [place] [address] Performed By: #### 2 4323-8 ####[facility] LABIA [id number] [place] [address] [place] HbA1c (Bld)on 12-22-2024 Average glucose Estimated from glycated hemoglobin (Bld) [Mass/Vol] 117 mg/dL Normal [facility] Comment on above: Order Comment: Speci men Type: BLOOD SPECIMENOrdering Facility: [facility] Address: [address] [place] [address] Result Comment: eAG: (Estimated average glucose) is a calculated value from HgbA1c and is technical services representative of the average blood glucose level in the last 2-3 month period. Performed By: #### 5 5454-3 ####[facility] [id number] [place] [address] [place] [facility] HbA1c (Bld) [Mass fraction] 5.7 % High 4.3-5.6 [facility] Comment on above: Order Comment: Rashad irwin Type: BLOOD SPECIMENOrdering Facility: [facility] Address: [address] [place] [address] Result Comment: [place] Diabetes Association guidelines indicate that patients with HgbA1c in the range 5.7-6.4% are at increased risk for development of diabetes, and intervention by lifestyle modification may be beneficial. HgbA1c greater or equal to 6.5% is considered diagnostic of diabetes. Performed By: #### 5 5454-3 ####[facility] LABIA [id number] [place] [address] [place] CNOVon 12-21-2024 CNOV Normal [facility] CNPNon 12-21-2024 CNPN Normal [facility] CNOVon 11-20-2024 CNOV Normal [facility] CNPTOUTREACHon 10-31-2024 CNPTOUTREACH Normal [facility] CNOVon 10-20-2024 CNOV Normal [facility] CNOVon 10-17-2024 CNOV Normal [facility] .Auto Diffon 10-15-2024 Basophil, Absolute 0.0 10 3/mcL Normal 0.0-0.3 [facility] Comment on above: Performed By: #### A DIFF, ANEU, BMP, TROPHS, MDW, GFR, CBC #### [address] [address] Basophils/100 WBC (Bld) 0.4 % Normal 0.0-2.5 [facility] Comment on above: Performed By: #### A DIFF, ANEU, BMP, TROPHS, MDW, GFR, CBC #### [address] [address] Eosinophil, Absolute 0.1 10 3/mcL Normal 0.0-0.7 [facility] Comment on above: Performed By: #### A DIFF, ANEU, BMP, TROPHS, MDW, GFR, CBC #### [address] [address] Eosinophils/100 WBC (Bld) 0.6 % Normal 0.0-6.0 [facility] Comment on above: Performed By: #### A DIFF, ANEU, BMP, TROPHS, MDW, GFR, CBC #### [address] [address] Lymphocyte, Absolute 3.4 10 3/mcL Normal 0.9-4.3 [facility] Comment on above: Performed By: #### A DIFF, ANEU, BMP, TROPHS, MDW, GFR, CBC #### [address] [address] Lymphocytes/100 WBC (Bld) 29.7 % Normal 20.0-40.0 [facility] Comment on above: Performed By: #### A DIFF, ANEU, BMP, TROPHS, MDW, GFR, CBC #### [address] [address] Monocyte, Absolute 0.7 10 3/mcL Normal 0.1-1.4 [facility] Comment on above: Performed By: #### A DIFF, ANEU, BMP, TROPHS, MDW, GFR, CBC #### [address] [place] [address] Monocytes/100 WBC (Bld) 6.5 % Normal 2.0-13.0 [facility] Comment on above: Performed By: #### A DIFF, ANEU, BMP, TROPHS, MDW, GFR, CBC #### [address] [address] Neutrophils/100 WBC (Bld) 62.8 % Normal 50.0-75.0 [facility] Comment on above: Performed By: #### A DIFF, ANEU, BMP, TROPHS, MDW, GFR, CBC #### [address] [address] .GFRon 10-15-2024 Estimated Glomerular Filtration Rate 110 ml/min/1.73sqm Normal [facility] Comment on above: Result Comment: Stages of [...] ANEU, BMP, TROPHS, MDW, GFR, CBC #### [address] [address] .MDWon 10-15-2024 Monocyte Distribution Width 16.00 Normal 0.00-20.00 [facility] Comment on above: Result Comment: For ED adult patients suspected of sepsis, MDW<=20.0 does not rule out sepsis or risk of sepsis Performed By: #### A DIFF, ANEU, BMP, TROPHS, MDW, GFR, CBC #### [address] [address] .NEUABSon 10-15-2024 Neutrophil, Absolute 7.1 10 3/mcL Normal 2.3-8.1 [facility] Comment on above: Performed By: #### A DIFF, ANEU, BMP, TROPHS, MDW, GFR, CBC #### [address] [address] BMPon 10-15-2024 BUN/Creatinine Ratio 20 ratio Normal 7-27 [facility] Comment on above: Performed By: #### A DIFF, ANEU, BMP, TROPHS, MDW, GFR, CBC #### [address] [address] Calcium [Mass/Vol] 9.2 mg/dL Normal 8.4-10.2 [facility] Comment on above: Performed By: #### A DIFF, ANEU, BMP, TROPHS, MDW, GFR, CBC #### [address] [address] Chloride [Moles/Vol] 101 mmol/L Normal 98-107 [facility] Comment on above: Performed By: #### A DIFF, ANEU, BMP, TROPHS, MDW, GFR, CBC #### [address] [address] CO2 [Moles/Vol] 27 mmol/L Normal 22-29 [facility] Comment on above: Performed By: #### A DIFF, ANEU, BMP, TROPHS, MDW, GFR, CBC #### [address] [address] Creatinine [Mass/Vol] 0.65 mg/dL Normal 0.51-0.95 [facility] Comment on above: Performed By: #### A DIFF, ANEU, BMP, TROPHS, MDW, GFR, CBC #### [address] [address] Electrolyte Balance 4.0 mEq/L Normal 4.0-15.0 [facility] Comment on above: Performed By: #### A DIFF, ANEU, BMP, TROPHS, MDW, GFR, CBC #### [address] [address] Glucose [Mass/Vol] 93 mg/dL Normal 70-105 [facility] Comment on above: Performed By: #### A DIFF, ANEU, BMP, TROPHS, MDW, GFR, CBC #### [address] [address] Potassium [Moles/Vol] 3.8 mmol/L Normal 3.5-5.1 [facility] Comment on above: Performed By: #### A DIFF, ANEU, BMP, TROPHS, MDW, GFR, CBC #### [place] [address] Sodium [Moles/Vol] 132 mmol/L Low 136-145 [facility] Comment on above: Performed By: #### A DIFF, ANEU, BMP, TROPHS, MDW, GFR, CBC #### [place] [address] Urea nitrogen [Mass/Vol] 13 mg/dL Normal 7-18 [facility] Comment on above: Performed By: #### A DIFF, ANEU, BMP, TROPHS, MDW, GFR, CBC #### [address] [address] CBCon 10-15-2024 Erythrocyte distribution width (RBC) [Ratio] 15.0 % Normal 11.5-15.5 [facility] Comment on above: Performed By: #### A DIFF, ANEU, BMP, TROPHS, MDW, GFR, CBC #### [place] [address] Hematocrit (Bld) [Volume fraction] 44.8 % Normal 34.0-46.0 [facility] Comment on above: Performed By: #### A DIFF, ANEU, BMP, TROPHS, MDW, GFR, CBC #### [address] [address] Hgb 15.1 G/dL Normal 12.0-16.0 [facility] Comment on above: Performed By: #### A DIFF, ANEU, BMP, TROPHS, MDW, GFR, CBC #### [place] [id number] MCH (RBC) [Entitic mass] 30.5 pg Normal 27.0-33.0 [facility] Comment on above: Performed By: #### A DIFF, ANEU, BMP, TROPHS, MDW, GFR, CBC #### [address] [address] MCHC 33.7 G/dL Normal 32.0-36.0 [facility] Comment on above: Performed By: #### A DIFF, ANEU, BMP, TROPHS, MDW, GFR, CBC #### [address] [address] MCV (RBC) [Entitic vol] 90.5 fL Normal 80.0-99.0 [facility] Comment on above: Performed By: #### A DIFF, ANEU, BMP, TROPHS, MDW, GFR, CBC #### [place] [id number] Platelet 248 10 3/mcL Normal 150-450 [facility] Comment on above: Performed By: #### A DIFF, ANEU, BMP, TROPHS, MDW, GFR, CBC #### [place] [address] Platelet mean volume (Bld) [Entitic vol] 7.5 fL Normal 6.6-10.5 [facility] Comment on above: Performed By: #### A DIFF, ANEU, BMP, TROPHS, MDW, GFR, CBC #### [address] [address] RBC 4.95 10 6/mcL Normal 4.10-5.30 [facility] Comment on above: Performed By: #### A DIFF, ANEU, BMP, TROPHS, MDW, GFR, CBC #### [address] [address] WBC 11.3 10 3/mcL High 4.5-10.8 [facility] Comment on above: Performed By: #### A DIFF, ANEU, BMP, TROPHS, MDW, GFR, CBC #### [address] [address] [address] ANGIOGRAPHY CHEST W/CONTR Marcio 10-15-2024 CT [...] 10/15/2024 1:14:40 AM Ordering Provider: DAVID Aranda [facility] LABORATORYOrdered By: SYSTEM SYSTEM on 10-15-2024 Basophils [...] ng/L Male: 0-76 ng/L Testing performed on zuuka! using a homogeneous sandwich chemiluminescent immunoassay based on DNA Direct technology. Urea nitrogen [Mass/Vol] 13 mg/dL Normal 7 - 18 mg/dL AO ADM SS Urea nitrogen/Creatinine [Mass ratio] 20 ratio Normal 7 - 27 ratio AO ADM SS WBC (Bld) [#/Vol] 11.3 103/mcL High 4.5 - 10.8 10^3/mcL AO Workflow SS PBNPon 10-15-2024 Natriuretic peptide B (Bld) [Mass/Vol] 27 pg/mL Normal 0-125 [facility] Comment on above: Result Comment: NT-p roBNP results of less than 300 pg/mL effectively rules out acute congestive heart failure with 99% negative predictive value. Performed By: #### P BNP #### [place] [address] [place], [place] [address] TROPHSon 10-15-2024 High Sensitivity Troponin I 4 ng/L Normal 0-51 [facility] Comment on above: Result Comment: High Sensitive Troponin I Reference Ranges: Female: 0-51 ng/L Male: 0-76 ng/L Testing performed on zuuka! using a homogeneous sandwich chemiluminescent immunoassay based on DNA Direct technology. Performed By: #### A DIFF, ANEU, BMP, TROPHS, MDW, GFR, CBC #### [place] [address] [place], [place] [address] Bacteria Spec Resp Culton Bacteria identified Respiratory culture Nom (Unsp spec) ORGANISM ID: 1 Moderate normal respiratory wing GRAM STAIN: Many Gram positive cocci Rare Polymorphonuclear leukocytes Abnormal [facility] Comment on above: Performed By: #### 3 2355-0 ####[facility] [id number] [place] [address] [place] ECG COMPLETEon 10-12-2024 Atrial Rate 77 BPM [facility] Calculated P Parker 46 degrees [facility] Calculated R Parker 71 degrees [facility] Calculated T Parker 61 degrees [facility] P-R Interval 178 ms [facility] QRS Duration 68 ms [facility] QT Interval 366 ms [facility] QTC Calculation (Bazett) 414 ms [facility] Ventricular Rate 77 BPM [facility] NORMAL SINUS RHYTHM NONSPECIFIC ST ABNORMALITY ABNORMAL ECG Confirmed by MD DONNA, LOUISE ([id number]) on 10/12/2024 3:54:51 PM [facility] NAME : DARREN REINOSO PID : [id number] : 1980 Gender : Female Race : ORD : [id number] Procedure Date : Oct 11 2024 11:38:05 Edit Date : Oct 12 2024 15:54:55 Diagnosis: NORMAL SINUS RHYTHM NONSPECIFIC ST ABNORMALITY ABNORMAL ECG Confirmed by MD THOMPSON QARAB ([id number]) on 10/12/2024 3:54:51 PM Test Reason : R07.9 Chest pain, unspecified type Location : 185 : WO Overread By : MD THOMPSON QARAB Edited By : MD THOMPSON QARAB Referred By : , Acquired by : [id number], [facility] CBC W Auto Differential pane l (Bld)on 10-11-2024 Basophils (Bld) [#/Vol] 0.03 10*3/uL [facility] Basophils/100 WBC (Bld) 0.3 % [facility] Differential cell count method Nom (Bld) Auto [facility] Eosinophils (Bld) [#/Vol] 0.09 10*3/uL [facility] Eosinophils/100 WBC (Bld) 1 % [facility] Erythrocyte distribution width (RBC) [Ratio] 14 % 11.5 - 15.0 % [facility] Hematocrit (Bld) [Volume fraction] 44.4 % 36.0 - 46.0 % [facility] Hemoglobin (Bld) [Mass/Vol] 14 g/dL 11.5 - 15.5 g/dL [facility] Immature granulocytes (Bld) [#/Vol] 0.05 10*3/uL [facility] Immature granulocytes/100 WBC (Bld) 0.5 % [facility] Lymphocytes (Bld) [#/Vol] 2.51 10*3/uL [facility] Lymphocytes/100 WBC (Bld) 26.7 % [facility] MCH (RBC) [Entitic mass] 29.6 pg 26.0 - 34.0 pg [facility] MCHC (RBC) [Mass/Vol] 31.5 g/dL 30.5 - 36.0 g/dL [facility] MCV (RBC) [Entitic vol] 93.9 fL 80.0 - 100.0 fL [facility] Monocytes (Bld) [#/Vol] 0.61 10*3/uL [facility] Monocytes/100 WBC (Bld) 6.5 % [facility] Neutrophils (Bld) [#/Vol] 6.1 10*3/uL [facility] Neutrophils/100 WBC (Bld) 65 % [facility] Nucleated RBC (Bld) [#/Vol] NINF [facility] Nucleated RBC/100 WBC (Bld) [Ratio] 0 % /100 WBC [facility] Platelet mean volume (Bld) [Entitic vol] 10 fL 9.0 - 12.7 fL [facility] Platelets (Bld) [#/Vol] 254 10*3/uL [facility] RBC (Bld) [#/Vol] 4.73 10*6/uL 3.90 - 5.20 m/uL [facility] WBC (Bld) [#/Vol] 9.39 10*3/uL [facility] Basophils (Bld) [#/Vol] 0.03 10*3/uL Normal <0.11 [facility] Comment on above: Order Comment: Speci men Type: BLOOD SPECIMENOrdering Facility: [facility] Address: [address] [place] [address] Performed By: #### [id number] 7021-8 ####[facility] LABCLIA [id number] [place] [address] [place] Basophils/100 WBC (Bld) 0.3 % Normal [facility] Comment on above: Order Comment: Speci men Type: BLOOD SPECIMENOrdering Facility: [facility] Address: [address] [place] [address] Performed By: #### 5 7021-8 ####[facility] LABCLIA [id number] [place] [address] [place] Differential cell count method Nom (Bld) Auto Normal [facility] Comment on above: Order Comment: Speci men Type: BLOOD SPECIMENOrdering Facility: [facility] Address: [address] [place] [address] Performed By: #### 5 7021-8 ####[facility] LABCLIA [id number] [place] [address] [place] Eosinophils (Bld) [#/Vol] 0.09 10*3/uL Normal <0.46 [facility] Comment on above: Order Comment: Speci men Type: BLOOD SPECIMENOrdering Facility: [facility] Address: [address] [place] [address] Performed By: #### 5 7021-8 ####[facility] LABCLIA [id number] [facility] [address] [place] Eosinophils/100 WBC (Bld) 1.0 % Normal [facility] Comment on above: Order Comment: Speci men Type: BLOOD SPECIMENOrdering Facility: [facility] Address: [address] [place] [address] Performed By: #### 5 7021-8 ####[facility] LABIA [id number] [address], [place] [address] [place] Erythrocyte distribution width (RBC) [Ratio] 14.0 % Normal 11.5-15.0 [facility] Comment on above: Order Comment: Speci men Type: BLOOD SPECIMENOrdering Facility: [facility] Address: [address] [place] [address] Performed By: #### 5 7021-8 ####[facility] LABIA [id number] [address] [place] Hematocrit (Bld) [Volume fraction] 44.4 % Normal 36.0-46.0 [facility] Comment on above: Order Comment: Speci men Type: BLOOD SPECIMENOrdering Facility: [facility] Address: [address] [place] [address] Performed By: #### 5 7021-8 ####[facility] LABIA [id number] [place] [address] [place] Hemoglobin (Bld) [Mass/Vol] 14.0 g/dL Normal 11.5-15.5 [facility] Comment on above: Order Comment: Speci men Type: BLOOD SPECIMENOrdering Facility: [facility] Address: [address] [place] [address] Performed By: #### 5 7021-8 ####[facility] LABCLIA [id number] [place] [address] [place] Immature granulocytes (Bld) [#/Vol] 0.05 10*3/uL Normal <0.10 [facility] Comment on above: Order Comment: Speci men Type: BLOOD SPECIMENOrdering Facility: [facility] Address: [address] [place] [address] Performed By: #### 5 7021-8 ####[facility] LABCLIA [id number] [address] [place] Immature granulocytes/100 WBC (Bld) 0.5 % Normal [facility] Comment on above: Order Comment: Speci men Type: BLOOD SPECIMENOrdering Facility: [facility] Address: [address] [place] [address] Performed By: #### 5 7021-8 ####[facility] LABIA [id number] [place] [address] [place] Lymphocytes (Bld) [#/Vol] 2.51 10*3/uL Normal 1.00-4.00 [facility] Comment on above: Order Comment: Speci men Type: BLOOD SPECIMENOrdering Facility: [facility] Address: [address] [place] [address] Performed By: #### 5 7021-8 ####[facility] LABCLIA [id number] [place] [id number] [place] Lymphocytes/100 WBC (Bld) 26.7 % Normal [facility] Comment on above: Order Comment: Speci men Type: BLOOD SPECIMENOrdering Facility: [facility] Address: [address] [place] [address] Performed By: #### 5 7021-8 ####[facility] LABCLIA [id number] [place] [id number] [place] MCH (RBC) [Entitic mass] 29.6 pg Normal 26.0-34.0 [facility] Comment on above: Order Comment: Speci men Type: BLOOD SPECIMENOrdering Facility: [facility] Address: [address] [place] [address] Performed By: #### 5 7021-8 ####[facility] LABCLIA [id number] [place] [address] [place] MCHC (RBC) [Mass/Vol] 31.5 g/dL Normal 30.5-36.0 [facility] Comment on above: Order Comment: Speci men Type: BLOOD SPECIMENOrdering Facility: [facility] Address: [address] [place] [address] Performed By: #### 5 7021-8 ####[facility] LABIA [id number] [place] [address] [place] MCV (RBC) [Entitic vol] 93.9 fL Normal 80.0-100.0 [facility] Comment on above: Order Comment: Speci men Type: BLOOD SPECIMENOrdering Facility: [facility] Address: [address] [place] [address] Performed By: #### 5 7021-8 ####[facility] LABIA [id number] [place] [address] [place] Monocytes (Bld) [#/Vol] 0.61 10*3/uL Normal <0.87 [facility] Comment on above: Order Comment: Speci men Type: BLOOD SPECIMENOrdering Facility: [facility] Address: [address] [place] [address] Performed By: #### 5 7021-8 ####[facility] LABCLIA [id number] [address] [place] Monocytes/100 WBC (Bld) 6.5 % Normal [facility] Comment on above: Order Comment: Speci men Type: BLOOD SPECIMENOrdering Facility: [facility] Address: [address] [place] [address] Performed By: #### 5 7021-8 ####[facility] LABCLIA [id number] [address], [place] [address] [place] Neutrophils (Bld) [#/Vol] 6.10 10*3/uL Normal 1.45-7.50 [facility] Comment on above: Order Comment: Speci men Type: BLOOD SPECIMENOrdering Facility: [facility] Address: [address] [place] [address] Performed By: #### 5 7021-8 ####[facility] LABCLIA [id number] [place] [address] [place] Neutrophils/100 WBC (Bld) 65.0 % Normal [facility] Comment on above: Order Comment: Speci men Type: BLOOD SPECIMENOrdering Facility: [facility] Address: [address] [place] [address] Performed By: #### 5 7021-8 ####[facility] LABCLIA [id number] [address], [place] [address] [place] Nucleated RBC (Bld) [#/Vol] 10*3/uL Normal <0.01 [facility] Comment on above: Order Comment: Speci men Type: BLOOD SPECIMENOrdering Facility: [facility] Address: [address] [place] [address] Performed By: #### 5 7021-8 ####[facility] LABCLIA [id number] [facility] [address], [facility] [place] Nucleated RBC/100 WBC (Bld) [Ratio] 0.0 /100 WBC Normal [facility] Comment on above: Order Comment: Speci men Type: BLOOD SPECIMENOrdering Facility: [facility] Address: [address] [place] [address] Performed By: #### 5 7021-8 ####[facility] LABCLIA [id number] [place] [address] [place] Platelet mean volume (Bld) [Entitic vol] 10.0 fL Normal 9.0-12.7 [facility] Comment on above: Order Comment: Speci men Type: BLOOD SPECIMENOrdering Facility: [facility] Address: [address] [place] [address] Performed By: #### 5 7021-8 ####[facility] LABIA [id number] [place] [address] [place] Platelets (Bld) [#/Vol] 254 10*3/uL Normal 150-400 [facility] Comment on above: Order Comment: Speci men Type: BLOOD SPECIMENOrdering Facility: [facility] Address: [address] [place] [address] Performed By: #### 5 7021-8 ####[facility] LABIA [id number] [place] [address] [place] RBC (Bld) [#/Vol] 4.73 10*6/uL Normal 3.90-5.20 [facility] Comment on above: Order Comment: Speci men Type: BLOOD SPECIMENOrdering Facility: [facility] Address: [address] [place] [address] Performed By: #### 5 7021-8 ####[facility] LABIA [id number] [place] [address] [place] WBC (Bld) [#/Vol] 9.39 10*3/uL Normal 3.70-11.00 [facility] Comment on above: Order Comment: Speci men Type: BLOOD SPECIMENOrdering Facility: [facility] Address: [address] [place] [address] Performed By: #### 5 7021-8 ####[facility] LABCLIA [id number] [place] [id number] [place] CNOVon 10-11-2024 CNOV Normal [facility] metabolic 2000 panelon 10-11-2024 Albumin [Mass/Vol] 3.9 g/dL 3.9 - 4.9 g/dL [facility] ALP [Catalytic activity/Vol] 100 U/L 34 - 123 U/L [facility] ALT [Catalytic activity/Vol] 15 U/L 7 - 38 U/L [facility] Anion gap [Moles/Vol] 13 mmol/L 8 - 15 mmol/L [facility] AST [Catalytic activity/Vol] 13 U/L 13 - 35 U/L [facility] Bilirubin [Mass/Vol] 0.2 mg/dL 0.2 - 1 .3 mg/dL [facility] Calcium [Mass/Vol] 9.4 mg/dL 8.5 - 10. 2 mg/dL [facility] Chloride [Moles/Vol] 105 mmol/L 98 - 10 7 mmol/L [facility] CO2 [Moles/Vol] 22 mmol/L 22 - 30 mmol/L [facility] Creatinine [Mass/Vol] 0.62 mg/dL 0.58 - 0.96 mg/dL [facility] GFR/1.73 sq M.predicted among non-blacks MDRD (S/P/Bld) [Vol rate/Area] 111 mL/min/{1.73_m2} - PINF [facility] Comment on above: Estimated Glomerular [...] 109 mg/dL High 74 - 99 mg/dL [facility] Comment on above: The [place] Diabete s Association (ADA) provides guidance for [...] Standards of Medical Care in Diabetes 2016, [place] Diabetes Association. Diabetes Care. 2016.39(Suppl 1). Potassium [Moles/Vol] 4 mmol/L 3.7 - 5.1 mmol/L [facility] Protein [Mass/Vol] 7.2 g/dL 6.3 - 8.0 g/dL [facility] Sodium [Moles/Vol] 140 mmol/L 136 - 144 mmol/L [facility] Urea nitrogen [Mass/Vol] 10 mg/dL 7 - 21 mg/dL [facility] Albumin [Mass/Vol] 3.9 g/dL Normal 3.9-4.9 [facility] Comment on above: Order Comment: Speci men Type: BLOOD SPECIMENOrdering Facility: [facility] Address: [address] [place] [address] Performed By: #### 2 4323-8, 67947-8, 71404-7, 6-3 ####[facility] LABIA [id number] [place] [address] [place] ALP [Catalytic activity/Vol] 100 U/L Normal 34-123 [facility] Comment on above: Order Comment: Speci men Type: BLOOD SPECIMENOrdering Facility: [facility] Address: [address] [place] [address] Performed By: #### 2 4323-8, 42866-7, 71326-7, 6-3 ####[facility] LABIA [id number] [place] [address] [place] ALT [Catalytic activity/Vol] 15 U/L Normal 7-38 [facility] Comment on above: Order Comment: Speci men Type: BLOOD SPECIMENOrdering Facility: [facility] Address: [address] [place] [address] Performed By: #### 2 4323-8, 28522-7, 04101-1, 6-3 ####[facility] LABIA [id number] [place] [id number] [place] Anion gap [Moles/Vol] 13 mmol/L Normal 8-15 [facility] Comment on above: Order Comment: Speci men Type: BLOOD SPECIMENOrdering Facility: [facility] Address: [address] [place] [address] Performed By: #### 2 4323-8, 19309-3, 38312-5, 6-3 ####[facility] LABCLIA [id number] [place] [id number] [place] AST [Catalytic activity/Vol] 13 U/L Normal 13-35 [facility] Comment on above: Order Comment: Speci men Type: BLOOD SPECIMENOrdering Facility: [facility] Address: [address] [place] [address] Performed By: #### 2 4323-8, 11566-5, , 6-3 ####[facility] LABCLIA [id number] [place] [address] [place] Bilirubin [Mass/Vol] 0.2 mg/dL Normal 0.2-1.3 [facility] Comment on above: Order Comment: Speci men Type: BLOOD SPECIMENOrdering Facility: [facility] Address: [address] [place] [address] Performed By: #### 2 4323-8, 09892-0, , 6-3 ####[facility] LABCLIA [id number] [place] [id number] [place] Calcium [Mass/Vol] 9.4 mg/dL Normal 8.5-10.2 [facility] Comment on above: Order Comment: Speci men Type: BLOOD SPECIMENOrdering Facility: [facility] Address: [address] [place], [place] [address] Performed By: #### 2 4323-8, 80828-9, 31876-4, 6-3 ####[facility] LABCLIA [id number] [place] [id number] [place] Chloride [Moles/Vol] 105 mmol/L Normal 98-107 [facility] Comment on above: Order Comment: Speci men Type: BLOOD SPECIMENOrdering Facility: [facility] Address: [address] [place] [address] Performed By: #### 2 4323-8, 45668-1, 04239-2, 3016-3 ####[facility] LABIA [id number] [place] [address] [place] CO2 [Moles/Vol] 22 mmol/L Normal 22-30 [facility] Comment on above: Order Comment: Speci men Type: BLOOD SPECIMENOrdering Facility: [facility] Address: [address] [place] [address] Performed By: #### 2 4323-8, 66688-2, 08531-9, 6-3 ####[facility] LABIA [id number] [place] [address] [place] Creatinine [Mass/Vol] 0.62 mg/dL Normal 0.58-0.96 [facility] Comment on above: Order Comment: Speci men Type: BLOOD SPECIMENOrdering Facility: [facility] Address: [address] [place] [address] Performed By: #### 2 4323-8, 53349-2, 44537-3, 6-3 ####[facility] [id number] [place] [address] [place] Creatinine and Glomerular filtration rate.predicted panel (S/P/Bld) 111 mL/min/1.73m??? Normal >=60 [facility] Comment on above: Order Comment: Speci men Type: BLOOD SPECIMENOrdering Facility: [facility] Address: [address] [place] [address] Result Comment: Jen mated Glomerular Filtration Rate [...] actual GFR. Performed By: #### 2 4323-8, 40687-2, , 3015-3 ####[facility] LABCLIA [id number] [facility] [address] [place] [address] [place] Glucose [Mass/Vol] 109 mg/dL High 74-99 [facility] Comment on above: Order Comment: Rashad irwin Type: BLOOD SPECIMENOrdering Facility: [facility] Address: [address] [place] [address] Result Comment: The [place] Diabetes Association (ADA) provides guidance for cutoff [...] Standards of Medical Care in Diabetes 2016, [place] Diabetes Association. Diabetes Care. 2016.39(Suppl 1). Performed By: #### 2 4323-8, 37170-3, , 3 ####[facility] LABCLIA [id number] [facility] [address] [address] [place] Potassium [Moles/Vol] 4.0 mmol/L Normal 3.7-5.1 [facility] Comment on above: Order Comment: Rashad irwin Type: BLOOD SPECIMENOrdering Facility: [facility] Address: [address] [place] [address] Performed By: #### 2 4323-8, 48137-8, , 3015-3 ####[facility] LABCLIA [id number] [facility] [address] [place] [address] [place] Protein [Mass/Vol] 7.2 g/dL Normal 6.3-8.0 [facility] Comment on above: Order Comment: Speci men Type: BLOOD SPECIMENOrdering Facility: [facility] Address: [address] [place] [address] Performed By: #### 2 4323-8, 73879-7, 83473-2, 3016-3 ####[facility] LABCLIA [id number] [place] [address] [place] Sodium [Moles/Vol] 140 mmol/L Normal 136-144 [facility] Comment on above: Order Comment: Speci men Type: BLOOD SPECIMENOrdering Facility: [facility] Address: [address] [place] [address] Performed By: #### 2 4323-8, 97725-0, 62694-7, 3016-3 ####[facility] LABIA [id number] [place] [address] [place] Urea nitrogen [Mass/Vol] 10 mg/dL Normal 7-21 [facility] Comment on above: Order Comment: Speci men Type: BLOOD SPECIMENOrdering Facility: [facility] Address: [address] [place] [address] Performed By: #### 2 4323-8, 66843-2, 42230-4, 3016-3 ####[facility] LABIA [id number] [place] [address] [place] D dimer FEU PPP-mCncon 10-11 Fibrin D-dimer FEU (PPP) [Mass/Vol] 910 ng/mL FEU High <500 [facility] Comment on above: Order Comment: Speci men Type: BLOOD SPECIMENOrdering Facility: [facility] Address: [address] [place] [address] Result Comment: Froz en Plasma Aliquot Performed By: #### 4 8065-7 ####[facility] LABCLIA [id number] [address] [address] [place] D-DIMEROrdered By: Elizabeth orona on 10-11-2024 Fibrin D-dimer FEU (PPP) [Mass/Vol] 910 High NINF [facility] Comment on above: Frozen Plasma Aliquo t ECG COMPLETEon 10-11-2024 ECG COMPLETE Normal [facility] Fibrin D-dimer FEU (PPP) [Ma ss/Vol]Ordered By: Elizabeth Mcgill on 10-11-2024 Interpretation and review of laboratory results Abnormal [facility] 500 ng/mL FEU is the [...] et al. Odette Int Med 2016 165:253. [facility] Lipid 1996 panelon Cholesterol [Mass/Vol] 243 mg/dL High NINF - 200 mg/dL [facility] Comment on above: <200 mg/dL, Desirabl e 200-239 mg/dL, Borderline high >239 mg/dL, High Cholesterol in HDL [Mass/Vol] 54 mg/dL 39 - PINF mg/dL [facility] Comment on above: 40-59 mg/dL, Accepta ble >59 mg/dL, High: Negative risk factor for coronary heart disease <40 mg/dL, Low: Positive risk factor for coronary heart disease Cholesterol in LDL [Mass/Vol] 154 mg/dL High NINF - 100 mg/dL [facility] Comment on above: <100 mg/dL, Optimal 100-129 mg/dL, Near optimal/above optimal 130-159 mg/dL, Borderline high 160-189 mg/dL, High >189 mg/dL, Very high Secondary prevention optimal LDL Cholesterol levels are recommended to be <70 mg/dL LDL cholesterol is calculated using the Hernández-NIH equation. Cholesterol in LDL/Cholesterol in HDL [Mass ratio] 2.85 {ratio} High NINF - 2.54 [facility] Comment on above: Reference: 1. National Cholesterol Education Program ATP III Guideline At-A-Glance Quick Desk Reference: National Heart, Lung, and Blood [place]. National Institutes of Health. 2001: NIH Publication No. 01-3305. 2. An International Atherosclerosis Society position paper: global recommendations for the management of dyslipidemia: executive summary, Atherosclerosis. 2014: 232(2):410-413. Cholesterol in VLDL [Mass/Vol] 37 mg/dL High NINF - 30 mg/dL [facility] Cholesterol non HDL [Mass/Vol] 189 mg/dL High NINF - 130 mg/dL [facility] Comment on above: <130 mg/dL, Optimal 130-159 mg/dL, Near optimal/above optimal 160-189 mg/dL, Borderline high 190-219 mg/dL, High >219 mg/dL, Very high Secondary prevention optimal non HDL Cholesterol levels are recommended to be <100 mg/dL Cholesterol.total/Chol esterol in HDL [Mass ratio] 4.5 {ratio} NINF - 5.10 [facility] Fasting Time 12 hrs [facility] Triglyceride [Mass/Vol] 194 mg/dL High NINF - 150 mg/dL [facility] Comment on above: <150 mg/dL, Normal 150-199 mg/dL, Borderline high 200-499 mg/dL, High >499 mg/dL, Very high Cholesterol [Mass/Vol] 243 mg/dL High <200 [facility] Comment on above: Order Comment: Speci men Type: BLOOD SPECIMENOrdering Facility: [facility] Address: [address] [place] [address] Result Comment: <200 mg/dL, Desirable 200-239 mg/dL, Borderline high>239 mg/dL, High Performed By: #### 2 4323-8, 39600-4, , 3015-07 ####[facility] LABCLIA [id number] [address] [address] [place] Cholesterol in HDL [Mass/Vol] 54 mg/dL Normal >39 [facility] Comment on above: Order Comment: Surekhai men Type: BLOOD SPECIMENOrdering Facility: [facility] Address: [address] [place] [address] Result Comment: 40-5 9 mg/dL, Acceptable>59 mg/dL, High: Negative risk factor for coronary heart disease<40 mg/dL, Low: Positive risk factor for coronary heart disease Performed By: #### 2 4323-8, 33737-2, , 3015-07 ####[facility] LABIA [id number] [address] [address] [place] Cholesterol in LDL [Mass/Vol] 154 mg/dL High <100 [facility] Comment on above: Order Comment: Speci men Type: BLOOD SPECIMENOrdering Facility: [facility] Address: [address] [place] [address] Result Comment: <100 mg/dL, Optimal 100-129 mg/dL, Near optimal/above optimal 130-159 mg/dL, Borderline high 160-189 mg/dL, High>189 mg/dL, Very highSecondary prevention optimal LDL Cholesterol levels are recommended to be <70 mg/dLLDL cholesterol is calculated using the Hernández-NIH equation. Performed By: #### 2 4323-8, 34359-8, , 3015-07 ####[facility] LABIA [id number] [address] [address] [place] Cholesterol in LDL/Cholesterol in HDL [Mass ratio] 2.85 {ratio} High <2.54 [facility] Comment on above: Order Comment: Speci men Type: BLOOD SPECIMENOrdering Facility: [facility] Address: [address] [place] [address] Result Comment: Refe rence:1. National Cholesterol Education Program ATP III Guideline At-A-Glance Quick Desk Reference: National Heart, Lung, and Blood [place]. National Institutes of Health. 2001: NIH Publication No. 01-3305.2. An International Atherosclerosis Society position paper: global recommendations for the management of dyslipidemia: executive summary, Atherosclerosis. 2014: 232(2):410-413. Performed By: #### 2 4323-8, 03412-2, 41305-0, 6-3 ####[facility] LABCLIA [id number] [address] [address] [place] Cholesterol in VLDL [Mass/Vol] 37 mg/dL High <30 [facility] Comment on above: Order Comment: Speci men Type: BLOOD SPECIMENOrdering Facility: [facility] Address: [address] [place] [address] Performed By: #### 2 4323-8, 63386-5, , 6-3 ####[facility] LABCLIA [id number] [address] [address] [place] Cholesterol non HDL [Mass/Vol] 189 mg/dL High <130 [facility] Comment on above: Order Comment: Speci men Type: BLOOD SPECIMENOrdering Facility: [facility] Address: [address] [place] [address] Result Comment: <130 mg/dL, Optimal 130-159 mg/dL, Near optimal/above optimal 160-189 mg/dL, Borderline high 190-219 mg/dL, High>219 mg/dL, Very highSecondary prevention optimal non HDL Cholesterol levels are recommended to be <100 mg/dL Performed By: #### 2 4323-8, 63478-8, 24063-9, 6-3 ####[facility] LABCLIA [id number] [address] [address] [place] Cholesterol.total/Chol esterol in HDL [Mass ratio] 4.50 {ratio} Normal <5.10 [facility] Comment on above: Order Comment: Speci men Type: BLOOD SPECIMENOrdering Facility: [facility] Address: [address] [place] [address] Performed By: #### 2 4323-8, 20425-4, 69548-4, 6-3 ####[facility] LABCLIA [id number] [address] [place] [address] [place] FASTING TIME 12 hrs Normal [facility] Comment on above: Order Comment: Speci men Type: BLOOD SPECIMENOrdering Facility: [facility] Address: [address] [place], [place] [id number] Performed By: #### 2 4323-8, 87304-9, , 6-3 ####[facility] LABCLIA [id number] [address] [place] [address] [place] Triglyceride [Mass/Vol] 194 mg/dL High <150 [facility] Comment on above: Order Comment: Speci men Type: BLOOD SPECIMENOrdering Facility: [facility] Address: [address] [place], [place] [address] Result Comment: <150 mg/dL, Normal 150-199 mg/dL, Borderline high 200-499 mg/dL, High>499 mg/dL, Very high Performed By: #### 2 4323-8, 72641-9, , 6-3 ####[facility] LABCLIA [id number] [address] [place] [address] [place] MAGNESIUMon 10-11-2024 Magnesium [Mass/Vol] 2.1 mg/dL 1.7 - 2 .3 mg/dL [facility] Magnesium SerPl-mCncon 10-11 Magnesium [Mass/Vol] 2.1 mg/dL Normal 1.7-2.3 [facility] Comment on above: Order Comment: Speci men Type: BLOOD SPECIMENOrdering Facility: [facility] Address: [address] [place], [place] [address] Performed By: #### 2 4323-8, 82219-1, 07789-6, 6-3 ####[facility] LABCLIA [id number] [address] [place] [address] [place] Magnesium [Mass/Vol]on 10-11 Interpretation and review of laboratory results Normal [facility] No Panel Informationon 10-11 Interpretation and review of laboratory results Abnormal [facility] THYROID STIMULATING HORMONEo n 10-11-2024 TSH Qn 3.31 m[IU]/L [facility] Comment on above: If the [...] Al et al. 2017 Guidelines of the [place] Thyroid Association for the Diagnosis and Management of Thyroid Disease during and the . Thyroid, 2017:27:3:315-389. TSH Qnon 10-11-2024 Interpretation and review of laboratory results Normal [facility] TSH SerPl-aCncon 10-11-2024 TSH Qn 3.310 m[IU]/L Normal 0.270-4.20 0 [facility] Comment on above: Order Comment: Speci men Type: BLOOD SPECIMENOrdering Facility: [facility] Address: [address] [place] [address] Result Comment: If t he patient is , TSH reference range varies by gestational period:First Trimester (weeks 9-12): 0.180-2.990 mIU/LSecond Trimester: 0.110-3.980 mIU/LThird Trimester: 0.480-4.710 mIU/Isidro Stringer et al. A Practical Approach for the Verifications and Determination of Site- and Trimester-Specific Reference Intervals for Thyroid Function tests in . Thyroid, 2019:29:3:412-420. Riccardo Al et al. 2017 Guidelines of the [place] Thyroid Association for the Diagnosis and Management of Thyroid Disease during and the . Thyroid, 2017:27:3:315-389. Performed By: #### 2 4323-8, 58440-7, 41118-0, 3016-3 ####[facility] LABCLIA [id number] [place] [address] [place] XR CHEST 2V FRONTAL/LATon XR CHEST 2V FRONTAL/LAT Normal [facility] XR Chest PA and Lateralon IMPRESSION: Prominence of the pulmonary markings Transmission Calibration Engineer: SARWAT Transcribe Date/Time: Oct 11 2024 12:31P Dictated by : DELIO CALDWELL MD This examination was interpreted and the report reviewed and electronically signed by: DELIO CALDWELL MD on Oct 11 2024 12:32PM [facility] DIVISION OF RADIOLOGY * * *Final Report* [...] soft tissues: Unremarkable. DIVISION OF RADIOLOGY Provider, [facility] Carissa Bronson [facility] - 10/11/2024 * * *Final Report* [...] IMPRESSION IMPRESSION: Prominence of the pulmonary markings Transmission Calibration Engineer: SARWAT Transcribe Date/Time: Oct 11 2024 12:31P Dictated by : DELIO CALDWELL MD This examination was interpreted and the report reviewed and electronically signed by: DELIO CALDWELL MD on Oct 11 2024 12:32PM EST [facility] Radiology Study observation (narrative) [facility] XR Chest PA and LateralOrder ed By: Ccf Provider on 10-11-2024 [facility] CNPTOUTREACHon 10-10-2024 CNPTOUTREACH Normal [facility] HbA1c (Bld)on 07-31-2024 Average glucose Estimated from glycated hemoglobin (Bld) [Mass/Vol] 111 mg/dL Normal [facility] Comment on above: Order Comment: Rashad irwin Type: BLOOD SPECIMENOrdering Facility: [facility] Address: [address] [place] [address] Result Comment: eAG: (Estimated average glucose) is a calculated value from HgbA1c and is technical services representative of the average blood glucose level in the last 2-3 month period. Performed By: #### 5 5454-3 ####[facility] LABCLIA [id number] [place] [address] [place] HbA1c (Bld) [Mass fraction] 5.5 % Normal 4.3-5.6 [facility] Comment on above: Order Comment: Rashad irwin Type: BLOOD SPECIMENOrdering Facility: [facility] Address: [address] [place] [address] Result Comment: [place] Diabetes Association guidelines indicate that patients with HgbA1c in the range 5.7-6.4% are at increased risk for development of diabetes, and intervention by lifestyle modification may be beneficial. HgbA1c greater or equal to 6.5% is considered diagnostic of diabetes. Performed By: #### 5 5454-3 ####[facility] LABCLIA [id number] [place] [id number] [place] TSH SerPl-aCncon 07-31-2024 TSH Qn 2.850 m[IU]/L Normal 0.270-4.20 0 [facility] Comment on above: Order Comment: Speci men Type: BLOOD SPECIMENOrdering Facility: [facility] Address: [facility] [place] [address] Result Comment: If t he patient is , TSH reference range varies by gestational period:First Trimester (weeks 9-12): 0.180-2.990 mIU/LSecond Trimester: 0.110-3.980 mIU/LThird Trimester: 0.480-4.710 mIU/Isidro Stringer et al. A Practical Approach for the Verifications and Determination of Site- and Trimester-Specific Reference Intervals for Thyroid Function tests in . Thyroid, 2019:29:3:412-420. Riccardo Al, et al. 2017 Guidelines of the [place] Thyroid Association for the Diagnosis and Management of Thyroid Disease during and the . Thyroid, 2017:27:3:315-389. Performed By: #### 3 016-3 ####[facility] LABCLIA [id number] [place] [id number] [place] CNOVon 07-27-2024 CNOV Normal [facility] CNOVon 07-13-2024 CNOV Normal [facility] INFLUENZA A&B MOLECULAR (POC )on 07-13-2024 Flu A (POCT) Negative Negative [facility] Flu B (POCT) Negative Negative [facility] Procedural Control Valid [facility] Location:[address], [id number] [place] [address] POINT OF CARE [facility] XR CHEST 2V FRONTAL/LATon XR CHEST 2V FRONTAL/LAT Normal [facility] XR Chest PA and Lateralon IMPRESSION: No acute radiographic abnormality. Transmission Calibration Engineer: SARWAT Transcribe Date/Time: Jul 13 2024 4:42P [...] spine. DIVISION OF RADIOLOGY Provider, [facility] - 07/13/2024 * * *Final Report* [...] spine. IMPRESSION IMPRESSION: No acute radiographic abnormality. Transmission Calibration Engineer: PSCB Transcribe Date/Time: Jul 13 2024 4:42P Dictated by : DELIO CALDWELL MD This examination was interpreted and the report reviewed and electronically signed by: DELIO CALDWELL MD on Jul 13 2024 4:43PM [facility] Radiology Study observation (narrative) [facility] XR Chest PA and LateralOrder ed By: Ccf Provider on 07-13-2024 [facility] CNOVon 06-30-2024 CNOV Normal [facility] CNPNon 02-03-2025 CNPN Normal [facility] CNOVon 06-16-2024 CNOV Normal [facility] NITRIC OXIDE, EXHALEDon - Viktoriya WoodwardHAILEY [...] DATE: June 16, 2024 TIME: 1:12 PM [facility] NITRIC OXIDE, EXHALEDOrdered By: Viktoriya Woodward on 06-16-2024 [facility] SPIROMETRY WITH DILATOR IF O BSTRUCTEDon 06-16-2024 FEF25% PRE (L/S) 2.90 L/S [facility] UMG45-24% LLN (L/S) 1.60 L/S [facility] HLT42-48% PRE (L/S) 1.75 L/S [facility] ULV31-97% PREDICTED (L/S) 2.77 L/S [facility] FEF75% LLN (L/S) 0.43 L/S [facility] FEF75% PRE (L/S0 0.81 L[facility]S [facility] FEF75% PREDICTED (L/S) 0.95 L/S [facility] FEF75% ULN (L/S) 1.92 L/S [facility] FET PRE (S) 6.32 S [facility] FEV1 LLN (L) 1.88 L [facility] FEV1 PRE (L) 1.98 L [facility] FEV1 PREDICTED (L) 2.52 L [facility] FEV1 ULN (L) 3.13 L [facility] FEV1/FVC LLN (%) 71 % [facility] FEV1/FVC PRE (%) 77 % [facility] FEV1/FVC PREDICTED (%) 82 % [facility] FVC LLN (L) 2.29 L [facility] FVC PRE (L) 2.56 L [facility] FVC PREDICTED (L) 3.04 L [facility] FVC ULN (L) 3.82 L [facility] PEF LLN (L/S) 4.93 L/S [facility] PEF PRE (L/S) 4.92 L/S [facility] PEF ULN (L/S) 8.14 L/S Count includes the [facility] [address] [place] [address] Test Date: 2024-06-16 Pat Name: DARREN REINOSO Department: Room: 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 PULMONARY FUNCTION LAB [facility] CNOVon 04-28-2024 CNOV Normal [facility] HEMOGLOBIN A1C (POC)on 04-28 HbA1c (Bld) [Mass fraction] 6.0 % Abnormal 4.3 - 5.6 % [facility] Comment on above: Location:[address], [address] Point of care (POC) Hemoglobin A1c (HGBA1C) [...] specific diabetes management situations: The POC device sales hunter provides a normal range of 4.2% to 6.5% for the HGBA1C POC test. However, the [place] Diabetes Association guidelines indicate that patients with [...] Interpretation and review of laboratory results Abnormal [facility] CNPNon 04-05-2024 CNPN Normal [facility] CNOVon 04-02-2024 CNOV Normal [facility] Bacteria Wnd Culton 04-01-20 Bacteria identified Cx Nom (Wound) Abnormal [facility] Comment on above: Performed By: #### 6 462-6 ####[facility] LABIA [id number] [place] [address] [place] CNOVon 04-01-2024 CNOV Normal [facility] CBC panel Auto (Bld)on 03-31 Erythrocyte distribution width (RBC) [Ratio] 14.8 % Normal 11.5-15.0 [facility] Comment on above: Order Comment: Rashad irwin Type: BLOOD SPECIMENOrdering Facility: [facility] Address: [address] [place] [address] [place] [address] Performed By: #### 5 8410-2 ####[facility] LABIA [id number] [place] [address] [place] Hematocrit (Bld) [Volume fraction] 44.4 % Normal 36.0-46.0 [facility] Comment on above: Order Comment: Rashad irwin Type: BLOOD SPECIMENOrdering Facility: [facility] Address: [facility] [place] [address] Performed By: #### 5 8410-2 ####[facility] LABIA [id number] [place] [address] [place] Hemoglobin (Bld) [Mass/Vol] 13.7 g/dL Normal 11.5-15.5 [facility] Comment on above: Order Comment: Rashad irwin Type: BLOOD SPECIMENOrdering Facility: [facility] Address: [facility] [place] [address] Performed By: #### 5 8410-2 ####[facility] LABIA [id number] [address] MCH (RBC) [Entitic mass] 29.5 pg Normal 26.0-34.0 [facility] Comment on above: Order Comment: Speci men Type: BLOOD SPECIMENOrdering Facility: [facility] Address: [address] [place] [address] Performed By: #### 5 8410-2 ####[facility] [id number] [place] [address] [place] MCHC (RBC) [Mass/Vol] 30.9 g/dL Normal 30.5-36.0 [facility] Comment on above: Order Comment: Speci men Type: BLOOD SPECIMENOrdering Facility: [facility] Address: [address] [place] [address] Performed By: #### 5 8410-2 ####[facility] [id number] [place] [address] [place] MCV (RBC) [Entitic vol] 95.7 fL Normal 80.0-100.0 [facility] Comment on above: Order Comment: Speci men Type: BLOOD SPECIMENOrdering Facility: [facility] Address: [address] [place], [place] [address] [address] Performed By: #### 5 8410-2 ####[facility] [id number] [address] OF [place] Nucleated RBC (Bld) [#/Vol] 10*3/uL Normal <0.01 [facility] Comment on above: Order Comment: Speci men Type: BLOOD SPECIMENOrdering Facility: [facility] Address: [address] [place], [place] [address] [address] Performed By: #### 5 8410-2 ####[facility] [id number] [id number] [address] [place] Platelet mean volume (Bld) [Entitic vol] 9.8 fL Normal 9.0-12.7 [facility] Comment on above: Order Comment: Speci men Type: BLOOD SPECIMENOrdering Facility: [facility] Address: [place] [address] Performed By: #### 5 8410-2 ####[facility] LABIA [id number] [place] [id number] [place] Platelets (Bld) [#/Vol] 252 10*3/uL Normal 150-400 [facility] Comment on above: Order Comment: Speci men Type: BLOOD SPECIMENOrdering Facility: [facility] Address: [facility] [place] [address] Performed By: #### 5 8410-2 ####[facility] LABCLIA [id number] [place] [address] [place] RBC (Bld) [#/Vol] 4.64 10*6/uL Normal 3.90-5.20 [facility] Comment on above: Order Comment: Speci men Type: BLOOD SPECIMENOrdering Facility: [facility] Address: [place] [address] Performed By: #### 5 8410-2 ####[facility] LABIA [id number] [place] [address] [place] WBC (Bld) [#/Vol] 11.81 10*3/uL High 3.70-11.00 [facility] Comment on above: Order Comment: Speci men Type: BLOOD SPECIMENOrdering Facility: [facility] Address: [place] [address] Performed By: #### 5 8410-2 ####[facility] LABCLIA [id number] [address] [address] [place] CNOVon 03-31-2024 CNOV Normal [facility] metabolic 2000 panelon 03-31-2024 Albumin [Mass/Vol] 4.1 g/dL Normal 3.9-4.9 [facility] Comment on above: Order Comment: Speci men Type: BLOOD SPECIMENOrdering Facility: [facility] Address: [facility] [place] [address] Performed By: #### 2 4323-8 ####[facility] LABCLIA [id number] [place] [address] [place] ALP [Catalytic activity/Vol] 108 U/L Normal 34-123 [facility] Comment on above: Order Comment: Speci men Type: BLOOD SPECIMENOrdering Facility: [facility] Address: [facility] [place] [address] Performed By: #### 2 4323-8 ####[facility] LABCLIA [id number] [place] [address] [place] ALT [Catalytic activity/Vol] 17 U/L Normal 7-38 [facility] Comment on above: Order Comment: Speci men Type: BLOOD SPECIMENOrdering Facility: [facility] Address: [facility] [place] [address] Performed By: #### 2 4323-8 ####[facility] LABCLIA [id number] [place] [address] [place] Anion gap [Moles/Vol] 14 mmol/L Normal 8-15 [facility] Comment on above: Order Comment: Speci men Type: BLOOD SPECIMENOrdering Facility: [facility] Address: [facility] [place] [address] Performed By: #### 2 4323-8 ####[facility] LABCLIA [id number] [place] [address] [place] AST [Catalytic activity/Vol] 15 U/L Normal 13-35 [facility] Comment on above: Order Comment: Speci men Type: BLOOD SPECIMENOrdering Facility: [facility] Address: [facility] [address] [place] [address] Performed By: #### 2 4323-8 ####[facility] LABCLIA [id number] [place] [address] [place] Bilirubin [Mass/Vol] mg/dL Low 0.2-1.3 [facility] Comment on above: Order Comment: Speci men Type: BLOOD SPECIMENOrdering Facility: [facility] Address: [facility] [place] [address] Performed By: #### 2 4323-8 ####[facility] LABCLIA [id number] [place] [address] [place] Calcium [Mass/Vol] 9.4 mg/dL Normal 8.5-10.2 [facility] Comment on above: Order Comment: Speci men Type: BLOOD SPECIMENOrdering Facility: [facility] Address: [facility] [place] [address] Performed By: #### 2 4323-8 ####[facility] LABCLIA [id number] [place] [address] [place] Chloride [Moles/Vol] 103 mmol/L Normal 98-107 [facility] Comment on above: Order Comment: Speci men Type: BLOOD SPECIMENOrdering Facility: [facility] Address: [facility] [place] [address] Performed By: #### 2 4323-8 ####[facility] LABCLIA [id number] [place] [address] [place] CO2 [Moles/Vol] 23 mmol/L Normal 22-30 [facility] Comment on above: Order Comment: Speci men Type: BLOOD SPECIMENOrdering Facility: [facility] Address: [facility] [place] [address] Performed By: #### 2 4323-8 ####[facility] LABCLIA [id number] [place] [address] [place] Creatinine [Mass/Vol] 0.59 mg/dL Normal 0.58-0.96 [facility] Comment on above: Order Comment: Rashad irwin Type: BLOOD SPECIMENOrdering Facility: [facility] Address: [facility] [place] [address] Performed By: #### 2 4323-8 ####[facility] LABCLIA [id number] [place] [address] [facility] OF [place] Creatinine and Glomerular filtration rate.predicted panel (S/P/Bld) 113 mL/min/1.73m??? Normal >=60 [facility] Comment on above: Order Comment: Rashad irwin Type: BLOOD SPECIMENOrdering Facility: [facility] Address: [facility] [place] [address] Result Comment: Jen mated Glomerular Filtration Rate [...] actual GFR. Performed By: #### 2 4323-8 ####[facility] LABCLIA [id number] [place] [address] [place] Glucose [Mass/Vol] 84 mg/dL Normal 74-99 [facility] Comment on above: Order Comment: Rashad irwin Type: BLOOD SPECIMENOrdering Facility: [facility] Address: [facility] [place] [address] Result Comment: The [place] Diabetes Association (ADA) provides guidance for cutoff [...] Standards of Medical Care in Diabetes 2016, [place] Diabetes Association. Diabetes Care. 2016.39(Suppl 1). Performed By: #### 2 4323-8 ####[facility] LABCLIA [id number] [place] [address] [place] Potassium [Moles/Vol] 3.9 mmol/L Normal 3.7-5.1 [facility] Comment on above: Order Comment: Speci men Type: BLOOD SPECIMENOrdering Facility: [facility] Address: [address] [place], [place] [address] [address] Performed By: #### 2 4323-8 ####[facility] LABCLIA [id number] [place] [address] [place] Protein [Mass/Vol] 7.3 g/dL Normal 6.3-8.0 [facility] Comment on above: Order Comment: Speci men Type: BLOOD SPECIMENOrdering Facility: [facility] Address: [address] [place], [place] [address] [address] Performed By: #### 2 4323-8 ####[facility] LABCLIA [id number] [place] [address] [place] Sodium [Moles/Vol] 140 mmol/L Normal 136-144 [facility] Comment on above: Order Comment: Surekhai men Type: BLOOD SPECIMENOrdering Facility: [facility] Address: [facility] [place] [address] Performed By: #### 2 4323-8 ####[facility] LABCLIA [id number] [place] [id number] [place] Urea nitrogen [Mass/Vol] 9 mg/dL Normal 7-21 [facility] Comment on above: Order Comment: Surekhai men Type: BLOOD SPECIMENOrdering Facility: [facility] Address: [address] [place], [place] [address] [address] Performed By: #### 2 4323-8 ####[facility] LABCLIA [id number] [place] [address] [place] CNOVon 03-17-2024 CNOV Normal [facility] Fungus Spec Culton 4 Fungus identified Cx Nom (Unsp spec) CULTURE, FUNGAL: No Fungus isolated after 28 days Normal [facility] Comment on above: Performed By: #### 5 80-1 ####[facility] LABCLIA [id number] [place] [address] [place] (1,3)-T-Q-EHAZZNnk 4 (1,3) B-D GLUCAN <31 Normal <60 [facility] Comment on above: Order Comment: Speci men Type: BLOOD SPECIMENOrdering Facility: [facility] Address: [address] [place] [address] Performed By: #### B DGLUC ####[facility] LABIA [id number] [place] [address] [place] (1,3) B-D GLUCAN QUAL Negative Normal Negative [facility] Comment on above: Order Comment: Speci men Type: BLOOD SPECIMENOrdering Facility: [facility] Address: [address] [place] [address] [place] [address] Performed By: #### B DGLUC ####[facility] LABCLIA [id number] [place] [address] [place] ASPERGILLUS GALACTOMANNAN SE RUMon 03-03-2024 ASPERGILLUS GALACTOMANNAN 0.08 Index Value Normal <=0.49 [facility] Comment on above: Order Comment: Speci men Type: BLOOD SPECIMENOrdering Facility: [facility] Address: [address] [place] [address] Performed By: #### A SGALS ####[facility] LABCLIA [id number] [place] [address] [place] Galactomannan Ag IA Ql Negative Normal Negative [facility] Comment on above: Order Comment: Rashad irwin Type: BLOOD SPECIMENOrdering Facility: [facility] Address: [facility] [place] [address] Result Comment: Aspe rgillus Galactomannan antigen assay [...] is required. Performed By: #### A SGALS ####[facility] LABIA [id number] [place] [address] [place] CBC panel Auto (Bld)on 03-03 Erythrocyte distribution width (RBC) [Ratio] 14.5 % Normal 11.5-15.0 [facility] Comment on above: Order Comment: Rashad irwin Type: BLOOD SPECIMENOrdering Facility: [facility], [facility] Address: [facility] [place] [address] Performed By: #### 5 8410-2 ####[facility] LABIA [id number] [place] [address] [place] Hematocrit (Bld) [Volume fraction] 47.4 % High 36.0-46.0 [facility] Comment on above: Order Comment: Rashad irwin Type: BLOOD SPECIMENOrdering Facility: [facility], [facility] Address: [facility] [place] [address] Performed By: #### 5 8410-2 ####[facility] LABIA [id number] [place] [id number] [place] Hemoglobin (Bld) [Mass/Vol] 14.5 g/dL Normal 11.5-15.5 [facility] Comment on above: Order Comment: Rashad irwin Type: BLOOD SPECIMENOrdering Facility: [facility], [facility] Address: [facility] [place] [address] Performed By: #### 5 8410-2 ####[facility] [id number] [place] [address] [place] MCH (RBC) [Entitic mass] 29.3 pg Normal 26.0-34.0 [facility] Comment on above: Order Comment: Speci men Type: BLOOD SPECIMENOrdering Facility: [facility], [facility] Address: [address] [place] [address] Performed By: #### 5 8410-2 ####[facility] [id number] MCHC (RBC) [Mass/Vol] 30.6 g/dL Normal 30.5-36.0 [facility] Comment on above: Order Comment: Speci men Type: BLOOD SPECIMENOrdering Facility: [facility], [facility] Address: [address] [place] [address] Performed By: #### 5 8410-2 ####[facility] [id number] [address] STATES OF [facility] MCV (RBC) [Entitic vol] 95.8 fL Normal 80.0-100.0 [facility] Comment on above: Order Comment: Speci men Type: BLOOD SPECIMENOrdering Facility: [facility], [facility] Address: [address] [place] [address] Performed By: #### 5 8410-2 ####[facility] [id number] [address] [place] Nucleated RBC (Bld) [#/Vol] 10*3/uL Normal <0.01 [facility] Comment on above: Order Comment: Speci men Type: BLOOD SPECIMENOrdering Facility: [facility], [facility] Address: [address] [place] [address] Performed By: #### 5 8410-2 ####[facility] [id number] [address] Platelet mean volume (Bld) [Entitic vol] 9.9 fL Normal 9.0-12.7 [facility] Comment on above: Order Comment: Speci men Type: BLOOD SPECIMENOrdering Facility: [facility], [facility] Address: [facility] [place] [address] Performed By: #### 5 8410-2 ####[facility] LABCLIA [id number] [place] [address] [place] Platelets (Bld) [#/Vol] 265 10*3/uL Normal 150-400 [facility] Comment on above: Order Comment: Speci men Type: BLOOD SPECIMENOrdering Facility: [facility] Address: [facility] [place] [address] Performed By: #### 5 8410-2 ####[facility] LABCLIA [id number] [place] [address] [place] RBC (Bld) [#/Vol] 4.95 10*6/uL Normal 3.90-5.20 [facility] Comment on above: Order Comment: Speci men Type: BLOOD SPECIMENOrdering Facility: [facility] Address: [place] [address] Performed By: #### 5 8410-2 ####[facility] LABCLIA [id number] [place] [address] [place] WBC (Bld) [#/Vol] 9.05 10*3/uL Normal 3.70-11.00 [facility] Comment on above: Order Comment: Speci men Type: BLOOD SPECIMENOrdering Facility: [facility] Address: [place] [address] Performed By: #### 5 8410-2 ####[facility] LABCLIA [id number] [address] [address] [place] Comprehensive metabolic 2000 panelon 03-03-2024 Albumin [Mass/Vol] 3.9 g/dL Normal 3.9-4.9 [facility] Comment on above: Order Comment: Speci men Type: BLOOD SPECIMENOrdering Facility: [facility] Address: [facility] [place] [address] Performed By: #### 2 4323-8 ####[facility] LABCLIA [id number] [place] [address] [place] ALP [Catalytic activity/Vol] 106 U/L Normal 34-123 [facility] Comment on above: Order Comment: Speci men Type: BLOOD SPECIMENOrdering Facility: [facility] Address: [facility] [place] [address] Performed By: #### 2 4323-8 ####[facility] LABCLIA [id number] [place] [address] [place] ALT [Catalytic activity/Vol] 20 U/L Normal 7-38 [facility] Comment on above: Order Comment: Speci men Type: BLOOD SPECIMENOrdering Facility: [facility] Address: [facility] [place] [address] Performed By: #### 2 4323-8 ####[facility] LABCLIA [id number] [place] [address] [place] Anion gap [Moles/Vol] 11 mmol/L Normal 8-15 [facility] Comment on above: Order Comment: Speci men Type: BLOOD SPECIMENOrdering Facility: [facility] Address: [facility] [place] [address] Performed By: #### 2 4323-8 ####[facility] LABCLIA [id number] [place] [address] [place] AST [Catalytic activity/Vol] 13 U/L Normal 13-35 [facility] Comment on above: Order Comment: Speci men Type: BLOOD SPECIMENOrdering Facility: [facility] Address: [facility] [place] [address] Performed By: #### 2 4323-8 ####[facility] LABCLIA [id number] [place] [address] [place] Bilirubin [Mass/Vol] 0.2 mg/dL Normal 0.2-1.3 [facility] Comment on above: Order Comment: Speci men Type: BLOOD SPECIMENOrdering Facility: [facility] Address: [facility] [place] [address] Performed By: #### 2 4323-8 ####[facility] LABCLIA [id number] [place] [address] [place] Calcium [Mass/Vol] 9.7 mg/dL Normal 8.5-10.2 [facility] Comment on above: Order Comment: Speci men Type: BLOOD SPECIMENOrdering Facility: [facility] Address: [facility] [place] [address] Performed By: #### 2 4323-8 ####[facility] LABCLIA [id number] [place] [address] [place] Chloride [Moles/Vol] 105 mmol/L Normal 98-107 [facility] Comment on above: Order Comment: Speci men Type: BLOOD SPECIMENOrdering Facility: [facility] Address: [facility] [place] [address] Performed By: #### 2 4323-8 ####[facility] LABCLIA [id number] [place] [address] [place] CO2 [Moles/Vol] 26 mmol/L Normal 22-30 [facility] Comment on above: Order Comment: Speci men Type: BLOOD SPECIMENOrdering Facility: [facility] Address: [facility] [place] [address] Performed By: #### 2 4323-8 ####[facility] LABCLIA [id number] [place] [address] [place] Creatinine [Mass/Vol] 0.79 mg/dL Normal 0.58-0.96 [facility] Comment on above: Order Comment: Speci men Type: BLOOD SPECIMENOrdering Facility: [facility] Address: [facility] [place] [address] Performed By: #### 2 4323-8 ####[facility] LABCLIA [id number] [place] [address] [place] Creatinine and Glomerular filtration rate.predicted panel (S/P/Bld) 94 mL/min/1.73m??? Normal >=60 [facility] Comment on above: Order Comment: Rashad irwin Type: BLOOD SPECIMENOrdering Facility: [facility] Address: [facility] [place] [address] Result Comment: Jen mated Glomerular Filtration Rate [...] actual GFR. Performed By: #### 2 4323-8 ####[facility] LABIA [id number] [place] [address] [place] Glucose [Mass/Vol] 133 mg/dL High 74-99 [facility] Comment on above: Order Comment: Rashad irwin Type: BLOOD SPECIMENOrdering Facility: [facility] Address: [facility] [place] [address] Result Comment: The [place] Diabetes Association (ADA) provides guidance for cutoff [...] Standards of Medical Care in Diabetes 2016, [place] [employer]. Diabetes Care. 2016.39(Suppl 1). Performed By: #### 2 4323-8 ####[facility] LABCLIA [id number] [address] [address] [place] Potassium [Moles/Vol] 4.3 mmol/L Normal 3.7-5.1 [facility] Comment on above: Order Comment: Speci men Type: BLOOD SPECIMENOrdering Facility: [facility] Address: [address] [place], [place] [address] [address] Performed By: #### 2 4323-8 ####[facility] LABCLIA [id number] [place] [address] [place] Protein [Mass/Vol] 7.2 g/dL Normal 6.3-8.0 [facility] Comment on above: Order Comment: Speci men Type: BLOOD SPECIMENOrdering Facility: [facility] Address: [address] [place], [place] [address] [address] Performed By: #### 2 4323-8 ####[facility] LABCLIA [id number] [place] [address] [place] Sodium [Moles/Vol] 142 mmol/L Normal 136-144 [facility] Comment on above: Order Comment: Speci men Type: BLOOD SPECIMENOrdering Facility: [facility] Address: [facility] [place] [address] Performed By: #### 2 4323-8 ####[facility] LABCLIA [id number] [place] [id number] [place] Urea nitrogen [Mass/Vol] 12 mg/dL Normal 7-21 [facility] Comment on above: Order Comment: Speci men Type: BLOOD SPECIMENOrdering Facility: [facility] Address: [address] [place], [place] [address] [address] Performed By: #### 2 4323-8 ####[facility] LABCLIA [id number] [place] [address] [place] HISTO CAPSULATUM AGon 2023 HISTOPLASMA ANTIGEN, SERUM Not detected Normal Not Detected [facility] Comment on above: Order Comment: Speci men Type: BLOOD SPECIMENOrdering Facility: [facility] Address: [address] [place] [address] Result Comment: Perf ormed By: [facility] [employer] [place] [id number] Director: Brad Hernandez MD, PhDCLIA Number: [id number] Performed By: #### S HISTO ####[facility] H[facility]PITALIA [id number] [place] [address] HISTOPLASMA ANTIGEN, SERUM INTERP Not detected Normal Not Detected [facility] Comment on above: Order Comment: Speci men Type: BLOOD SPECIMENOrdering Facility: [facility] Address: [address] [place] [address] Result Comment: INTE RPRETIVE INFORMATION: Histoplasma Antigen [...] was developed and its performance characteristicsdetermined by [employer]. It has not been cleared orapproved by the [place] Food and Drug Administration. This test wasperformed in a CLIA certified laboratory and is intended forclinical purposes. Performed By: #### S HISTO ####[facility]ITAL[facility] [id number] [place] [address] Voriconazole [facility] Voricon[facility] [Mass/Vol] 0.8 ug/mL Low 1.0-5.9 [facility] Comment on above: Order Comment: Speci men Type: BLOOD SPECIMENOrdering Facility: [facility] Address: [facility] [place] [address] Result Comment: Rang es are based on trough draw at steady-state concentration.Therapeutic: >0.9 ug/mLProphylactic: >0.9 ug/mLToxic: >5.9 ug/mLThe therapeutic, prophylactic, and toxic ranges were based on the 2016 Infectious Disease Society of [place]'s (IDSA) Clinical Practice Guidelines for the Management of Aspergillosis and Candidiasis and consultation from [facility]'s Department of Infectious Disease.Reference ranges and high/low indicator flags are provided as general guidelines only. The treating physician must determine appropriate target levels/dosing based on the specific clinical situation.This test was developed, and its performance characteristics determined by the [facility] Department of Pathology and Laboratory Medicine. It has not been cleared or approved by the FDA. The [facility] Department of Pathology and Laboratory Medicine is regulated under CLIA as qualified to perform high-complexity testing. This test is used for clinical purposes. It should not be regarded as investigational or for research. Performed By: #### 3 8370-3 ####[facility] LABCLIA [id number] [place] [address] [place] CNPNon 02-29-2024 CNPN Normal [facility] CT CHEST W IVCONon 4 CT CHEST W IVCON Normal [facility] Fungus Stain 8136on 02-29-20 24 FUNST ___ TESTING PERFORMED AT [facility]. ORIGINAL REPORT ON FILE IN LAB CONTAINS ADDITIONAL TEST SITE INFORMATION. ___ Fungus Stain No yeast or mold observed. Normal [facility] Comment on above: Performed By: #### M 100.1999, M100.2400, M600.0 #### [facility] [address] [place], [address] CNPNon 02-28-2024 CNPN Normal [facility] Respiratory Cultureon 2023 RESPC Mixed normal respira tory wing. No Haemophilus, Streptococcus pneumoniae, beta-hemolytic Streptococcus or Staphylococcus aureus isolated. Normal [facility] Comment on above: Performed By: #### M 100.1999, M100.2400, M600.2200 #### [facility] [address] [facility] [place], [address] A fumigatus IgE Qnon 024 A. fumigatus IgE Qn (S) <0.35 Normal <0.35 [facility] Comment on above: Order Comment: Speci men Type: BLOOD SPECIMENOrdering Facility: [facility] Address: [address] [place] [address] Performed By: #### 6 025-1, 73831-1 ####[facility] LABCLIA [id number] [place] [address] [place] A. FUMIGATUS AB, IGGon 02-24 A FUMIGATUS, IGG BY MARA 9.80 mcg/mL Normal <=99.99 [facility] Comment on above: Order Comment: Speci men Type: BLOOD SPECIMENOrdering Facility: [facility] Address: [address] [place] [address] Result Comment: REFE RENCE INTERVAL: Aspergillus fumigatus [...] was developed and its performance characteristicsdetermined by [employer]. It has not been cleared orapproved by the [place] Food and Drug Administration. This test wasperformed in a CLIA certified laboratory and is intended forclinical purposes. Performed By: #### A SPIGG ####[facility] [id number] [place] [address] A. fumigatus IgE Qn (S)on A. fumigatus IgE RAST class (S) Class 0 Normal Class 0 [facility] Comment on above: Order Comment: Speci men Type: BLOOD SPECIMENOrdering Facility: [facility] Address: [address] [place] [address] Performed By: #### 6 025-1, 38754-6 ####[facility] LABCLIA [id number] [place] [address] [place] CBC W Auto Differential pane l (Bld)on 02-25-2024 Basophils (Bld) [#/Vol] 0.05 10*3/uL Normal <0.11 [facility] Comment on above: Order Comment: Speci men Type: BLOOD SPECIMENOrdering Facility: [facility] Address: [address] [place] [address] Performed By: #### 5 7021-8 ####[facility] LABCLIA [id number] [place] [address] [place] Basophils/100 WBC (Bld) 0.4 % Normal [facility] Comment on above: Order Comment: Speci men Type: BLOOD SPECIMENOrdering Facility: [facility] Address: [address] [place] [address] Performed By: #### 5 7021-8 ####[facility] LABCLIA [id number] [place] [address] [place] Differential cell count method Nom (Bld) Auto Normal [facility] Comment on above: Order Comment: Speci men Type: BLOOD SPECIMENOrdering Facility: [facility] Address: [address] [place] [address] Performed By: #### 5 7021-8 ####[facility] LABCLIA [id number] [place] [address] [place] Eosinophils (Bld) [#/Vol] 0.08 10*3/uL Normal <0.46 [facility] Comment on above: Order Comment: Speci men Type: BLOOD SPECIMENOrdering Facility: [facility] Address: [address] [place] [address] Performed By: #### 5 7021-8 ####[facility] LABCLIA [id number] [place] [address] [place] Eosinophils/100 WBC (Bld) 0.6 % Normal [facility] Comment on above: Order Comment: Speci men Type: BLOOD SPECIMENOrdering Facility: [facility] Address: [address] [place] [address] Performed By: #### 5 7021-8 ####[facility] LABCLIA [id number] [place] [address] [place] Erythrocyte distribution width (RBC) [Ratio] 14.6 % Normal 11.5-15.0 [facility] Comment on above: Order Comment: Speci men Type: BLOOD SPECIMENOrdering Facility: [facility] Address: [address] [place] [address] Performed By: #### 5 7021-8 ####[facility] LABCLIA [id number] [place] [address] [place] Hematocrit (Bld) [Volume fraction] 47.1 % High 36.0-46.0 [facility] Comment on above: Order Comment: Speci men Type: BLOOD SPECIMENOrdering Facility: [facility] Address: [address] [place] [address] Performed By: #### 5 7021-8 ####[facility] LABCLIA [id number] [place] [address] [place] Hemoglobin (Bld) [Mass/Vol] 14.3 g/dL Normal 11.5-15.5 [facility] Comment on above: Order Comment: Speci men Type: BLOOD SPECIMENOrdering Facility: [facility] Address: [address] [place] [address] Performed By: #### 5 7021-8 ####[facility] LABCLIA [id number] [place] [address] [place] Immature granulocytes (Bld) [#/Vol] 0.09 10*3/uL Normal <0.10 [facility] Comment on above: Order Comment: Speci men Type: BLOOD SPECIMENOrdering Facility: [facility] Address: [address] [place] [address] Performed By: #### 5 7021-8 ####[facility] LABIA [id number] [place] [address] [place] Immature granulocytes/100 WBC (Bld) 0.7 % Normal [facility] Comment on above: Order Comment: Speci men Type: BLOOD SPECIMENOrdering Facility: [facility] Address: [address] [place] [address] Performed By: #### 5 7021-8 ####[facility] LABCLIA [id number] [place] [address] [place] Lymphocytes (Bld) [#/Vol] 3.27 10*3/uL Normal 1.00-4.00 [facility] Comment on above: Order Comment: Speci men Type: BLOOD SPECIMENOrdering Facility: [facility] Address: [address] [place] [address] Performed By: #### 5 7021-8 ####[facility] LABCLIA [id number] [place] [address] [place] Lymphocytes/100 WBC (Bld) 24.5 % Normal [facility] Comment on above: Order Comment: Speci men Type: BLOOD SPECIMENOrdering Facility: [facility] Address: [address] [place] [address] Performed By: #### 5 7021-8 ####[facility] LABIA [id number] [place] [address] [place] MCH (RBC) [Entitic mass] 29.0 pg Normal 26.0-34.0 [facility] Comment on above: Order Comment: Speci men Type: BLOOD SPECIMENOrdering Facility: [facility] Address: [address] [place] [address] Performed By: #### 5 7021-8 ####[facility] [id number] [place] [address] [place] MCHC (RBC) [Mass/Vol] 30.4 g/dL Low 30.5-36.0 [facility] Comment on above: Order Comment: Speci men Type: BLOOD SPECIMENOrdering Facility: [facility] Address: [address] [place] [address] Performed By: #### 5 7021-8 ####[facility] LABIA [id number] [place] [address] [place] MCV (RBC) [Entitic vol] 95.5 fL Normal 80.0-100.0 [facility] Comment on above: Order Comment: Speci men Type: BLOOD SPECIMENOrdering Facility: [facility] Address: [address] [place] [address] Performed By: #### 5 7021-8 ####[facility] LABIA [id number] [place] [address] [place] Monocytes (Bld) [#/Vol] 0.80 10*3/uL Normal <0.87 [facility] Comment on above: Order Comment: Speci men Type: BLOOD SPECIMENOrdering Facility: [facility] Address: [address] [place] [address] Performed By: #### 5 7021-8 ####[facility] LABCL[facility] [id number] [place] [address] [place] Monocytes/100 WBC (Bld) 6.0 % Normal [facility] Comment on above: Order Comment: Speci men Type: BLOOD SPECIMENOrdering Facility: [facility] Address: [address] [place], [place] [address] Performed By: #### 5 7021-8 ####[facility] LABCLIA [id number] [place] [address] [place] Neutrophils (Bld) [#/Vol] 9.08 10*3/uL High 1.45-7.50 [facility] Comment on above: Order Comment: Speci men Type: BLOOD SPECIMENOrdering Facility: [facility] Address: [address] [place] [address] Performed By: #### 5 7021-8 ####[facility] LABIA [id number] [place] [address] [place] Neutrophils/100 WBC (Bld) 67.8 % Normal [facility] Comment on above: Order Comment: Speci men Type: BLOOD SPECIMENOrdering Facility: [facility] Address: [address] [place] [address] Performed By: #### 5 7021-8 ####[facility] LABIA [id number] [place] [address] [place] Nucleated RBC (Bld) [#/Vol] 10*3/uL Normal <0.01 [facility] Comment on above: Order Comment: Speci men Type: BLOOD SPECIMENOrdering Facility: [facility] Address: [address] [place] [address] Performed By: #### 5 7021-8 ####[facility] LABCL[facility] [id number] [place] [address] [place] Nucleated RBC/100 WBC (Bld) [Ratio] 0.0 /100 WBC Normal [facility] Comment on above: Order Comment: Speci men Type: BLOOD SPECIMENOrdering Facility: [facility] Address: [address] [place] [address] Performed By: #### 5 7021-8 ####[facility] LABIA [id number] [place] [address] [place] Platelet mean volume (Bld) [Entitic vol] 10.0 fL Normal 9.0-12.7 [facility] Comment on above: Order Comment: Speci men Type: BLOOD SPECIMENOrdering Facility: [facility] Address: [address] [place] [address] Performed By: #### 5 7021-8 ####[facility] LABIA [id number] [place] [address] [place] Platelets (Bld) [#/Vol] 251 10*3/uL Normal 150-400 [facility] Comment on above: Order Comment: Speci men Type: BLOOD SPECIMENOrdering Facility: [facility] Address: [address] [place] [address] Performed By: #### 5 7021-8 ####[facility] LABIA [id number] [place] [address] [place] RBC (Bld) [#/Vol] 4.93 10*6/uL Normal 3.90-5.20 [facility] Comment on above: Order Comment: Speci men Type: BLOOD SPECIMENOrdering Facility: [facility] Address: [address] [place] [address] Performed By: #### 5 7021-8 ####[facility] LABIA [id number] [place] [address] [place] WBC (Bld) [#/Vol] 13.37 10*3/uL High 3.70-11.00 [facility] Comment on above: Order Comment: Speci men Type: BLOOD SPECIMENOrdering Facility: [facility] Address: [address] [place] [address] Performed By: #### 5 7021-8 ####[facility] LABIA [id number] [place] [address] [place] CNPNon 02-25-2024 CNPN Normal [facility] Gram Stainon 02-25-2024 GS Acceptable Specimen? Yes (<25 Epithelial cells per/lpf) Gram Stain 4+ White Blood Cells 3+ Gram positive rods 1+ Epithelial cells 1+ Gram positive cocci Normal [facility] Comment on above: Performed By: #### M 100.2000, M100.2400, M600.2200 #### [facility] [address] [place] [address]. [place], [place], [id number] IgE SerPl-aCncon 02-25-2024 IgE Qn 48.4 kU/l Normal <114.0 [facility] Comment on above: Order Comment: Speci men Type: BLOOD SPECIMENOrdering Facility: [facility] Address: [address] [place] [address] Performed By: #### 6 025-1, 04526-2 ####[facility] LABIA [id number] [place] [address] [place] Liver Profileon 02-25-2024 Albumin [Mass/Vol] 3.2 g/dL Normal 3.2-5.0 [facility] Comment on above: Performed By: #### L 500.3400 #### [facility] [address] [facility] [place], [address] ALK P 101 U/L Normal 45-117 [facility] Comment on above: Performed By: #### L 500.3400 #### [facility] [address] [facility] [place], [address] ALT [Catalytic activity/Vol] 26 U/L Normal 13-56 [facility] Comment on above: Performed By: #### L 500.3400 #### [facility] [address] [place], [address] AST [Catalytic activity/Vol] 26 U/L Normal 15-37 [facility] Comment on above: Result Comment: Mode rate Hemolysis, Result may be falsely increased. Performed By: #### L 500.3400 #### [facility] [address] [place], [address] Bilirubin [Mass/Vol] 0.40 mg/dL Normal 0.20-1.00 [facility] Comment on above: Result Comment: For patients on eltrombopag therapy, use of Dimension [place] TBIL is not recommended. Performed By: #### L 500.3400 #### [facility] [address] [place], [address] D BILI < 0.05 Normal 0.00-0.30 [facility] Comment on above: Performed By: #### L 500.3400 #### [facility] [address] [place], [address] Globulin (S) [Mass/Vol] 4.4 g/dL High 2.2-4.2 [facility] Comment on above: Performed By: #### L 500.3400 #### [facility] [address] [place], [address] T PROT 7.6 g/dL Normal 6.4-8.2 [facility] Comment on above: Performed By: #### L 500.3400 #### [facility] [address] [place], [address] Pulmonary Visit Reporton Pulmonary Visit Report [facility] [place] [address] [place] [address] OFFICE VISIT Date of Service: 02/25/24 MR#: [id number] Acct: [id number] Name: DARREN REINOSO Rep #: [id number] : 1980 Provider: RAMON Regalado Age/Sex: 44/F Location: [facility].PMW Status: Signed Assessment and Plan Assessment and Plan (1) Aspergillosis: Status: Acute Plan: The patient shows me her MyChart from [facility]. Detailed sputum results are not available, however [...] PRN So (more content not included)... Normal [facility] CNOVon 02-21-2024 CNOV Normal [facility] Bacteria Spec Resp Culton Bacteria identified Respiratory culture Nom (Unsp spec) ORGANISM ID: 1 Many normal respiratory wing ORGANISM ID: 2 Rare Aspergillus fumigatus By MALDI TOF Mass Spectrometry. GRAM STAIN: Rare Mixed oral wing No Polymorphonuclear Leukocytes Abnormal [facility] Comment on above: Performed By: #### 3 2355-0 ####[facility] LABCLIA [id number] [address] CNOVon 02-17-2024 CNOV Normal [facility] XR CHEST 2V FRONTAL/LATon XR CHEST 2V FRONTAL/LAT Normal [facility] XR Chest PA and Lateralon IMPRESSION: No definite acute radiographic abnormality. Transmission Calibration Engineer: PSCB Transcribe Date/Time: Feb 04 2024 4:59P Dictated by : DELIO CALDWELL MD This examination was interpreted and the report reviewed and electronically signed by: DELIO CALDWELL MD on Feb 04 2024 4:59PM [facility] DIVISION OF RADIOLOGY * * *Final Report* [...] IMPRESSION IMPRESSION: No definite acute radiographic abnormality. Transmission Calibration Engineer: SARWAT Transcribe Date/Time: Feb 04 2024 4:59P Dictated by : DELIO CADLWELL MD This examination was interpreted and the report reviewed and electronically signed by: DELIO CALDWELL MD on Feb 04 2024 4:59PM EST [facility] Radiology Study observation (narrative) [facility] XR Chest PA and LateralOrder ed By: Ccf Provider on 02-04-2024 [facility] CNOVon 02-02-2024 CNOV Normal [facility] COVID AND INFLUENZA A/B AND RSV PCR, ROUTINEon 02-02-2024 SARS-CoV-2 (COVID-19) RNA PREEIT+probe Ql (Unsp spec) SARS-COV-2 (AGENT OF COVID-19) RNA: Not detected INFLUENZA A RNA: Not detected INFLUENZA B RNA: Not detected RESPIRATORY SYNCYTIAL VIRUS (RSV) RNA: Not detected Normal [facility] Comment on above: Performed By: #### C VFLRS ####[facility] LABCLIA [id number] [place] [address] [place] Basic metabolic 2000 panelon 01-21-2024 Anion gap [Moles/Vol] 13 mmol/L Normal 8-15 [facility] Comment on above: Order Comment: Speci men Type: BLOOD SPECIMENOrdering Facility: [facility] Address: [address] [place] [address] Performed By: #### 2 4321-2 ####[facility] LABCLIA [id number] [address] [address] [place] Calcium [Mass/Vol] 9.5 mg/dL Normal 8.5-10.2 [facility] Comment on above: Order Comment: Speci men Type: BLOOD SPECIMENOrdering Facility: [facility] Address: [address] [place], [place] [address] Performed By: #### 2 4321-2 ####[facility] LABCLIA [id number] [place] [address] [place] Chloride [Moles/Vol] 104 mmol/L Normal 98-107 [facility] Comment on above: Order Comment: Speci men Type: BLOOD SPECIMENOrdering Facility: [facility] Address: [address] [place] [address] Performed By: #### 2 4321-2 ####[facility] LABCLIA [id number] [place] [address] [place] CO2 [Moles/Vol] 21 mmol/L Low 22-30 [facility] Comment on above: Order Comment: Speci men Type: BLOOD SPECIMENOrdering Facility: [facility] Address: [address] [place], [place] [address] Performed By: #### 2 4321-2 ####[facility] LABCLIA [id number] [place] [address] [place] Creatinine [Mass/Vol] 0.71 mg/dL Normal 0.58-0.96 [facility] Comment on above: Order Comment: Speci men Type: BLOOD SPECIMENOrdering Facility: [facility] Address: [address] [place], [place] [address] Performed By: #### 2 4321-2 ####[facility] LABCLIA [id number] [id number] [address] [place] Creatinine and Glomerular filtration rate.predicted panel (S/P/Bld) 106 mL/min/1.73m??? Normal >=60 [facility] Comment on above: Order Comment: Rashad irwin Type: BLOOD SPECIMENOrdering Facility: [facility] Address: [address] [place] [address] Result Comment: Jen mated Glomerular Filtration Rate [...] actual GFR. Performed By: #### 2 4321-2 ####[facility] LABCLIA [id number] [place] [address] [place] Glucose [Mass/Vol] 110 mg/dL High 74-99 [facility] Comment on above: Order Comment: Rashad irwin Type: BLOOD SPECIMENOrdering Facility: [facility] Address: [address] [place] [address] Result Comment: The [place] Diabetes Association (ADA) provides guidance for cutoff [...] Standards of Medical Care in Diabetes 2016, [place] [employer]. Diabetes Care. 2016.39(Suppl 1). Performed By: #### 2 4321-2 ####[facility] LABIA [id number] [place] [address] [place] Potassium [Moles/Vol] 4.3 mmol/L Normal 3.7-5.1 [facility] Comment on above: Order Comment: Speci men Type: BLOOD SPECIMENOrdering Facility: [facility] Address: [address] [place] [address] Performed By: #### 2 4321-2 ####[facility] LABCLIA [id number] [place] [address] [place] Sodium [Moles/Vol] 138 mmol/L Normal 136-144 [facility] Comment on above: Order Comment: Speci men Type: BLOOD SPECIMENOrdering Facility: [facility] Address: [address] [place] [address] Performed By: #### 2 4321-2 ####[facility] LABCLIA [id number] [place] [address] [place] Urea nitrogen [Mass/Vol] 12 mg/dL Normal 7-21 [facility] Comment on above: Order Comment: Speci men Type: BLOOD SPECIMENOrdering Facility: [facility] Address: [address] [place] [address] Performed By: #### 2 4321-2 ####[facility] LABCLIA [id number] [place] [address] [place] CBC W Auto Differential pane l (Bld)on 01-21-2024 Basophils (Bld) [#/Vol] 0.05 10*3/uL [facility] Basophils/100 WBC (Bld) 0.5 % [facility] Differential cell count method Nom (Bld) Auto [facility] Eosinophils (Bld) [#/Vol] 0.07 10*3/uL [facility] Eosinophils/100 WBC (Bld) 0.7 % [facility] Erythrocyte distribution width (RBC) [Ratio] 14.3 % 11.5 - 15.0 % [facility] Hematocrit (Bld) [Volume fraction] 44.6 % 36.0 - 46.0 % [facility] Hemoglobin (Bld) [Mass/Vol] 13.6 g/dL 11.5 - 15.5 g/dL [facility] Immature granulocytes (Bld) [#/Vol] 0.05 10*3/uL NINF [facility] Immature granulocytes/100 WBC (Bld) 0.5 % [facility] Lymphocytes (Bld) [#/Vol] 2.43 10*3/uL [facility] Lymphocytes/100 WBC (Bld) 25.2 % [facility] MCH (RBC) [Entitic mass] 28.9 pg 26.0 - 34.0 pg [facility] MCHC (RBC) [Mass/Vol] 30.5 g/dL 30.5 - 36.0 g/dL [facility] MCV (RBC) [Entitic vol] 94.7 fL 80.0 - 100.0 fL [facility] Monocytes (Bld) [#/Vol] 0.66 10*3/uL [facility] Monocytes/100 WBC (Bld) 6.8 % [facility] Neutrophils (Bld) [#/Vol] 6.40 10*3/uL [facility] Neutrophils/100 WBC (Bld) 66.3 % [facility] Nucleated RBC (Bld) [#/Vol] [facility] Nucleated RBC/100 WBC (Bld) [Ratio] 0.0 % /100 WBC [facility] Platelet mean volume (Bld) [Entitic vol] 9.6 fL 9.0 - 12.7 fL [facility] Platelets (Bld) [#/Vol] 248 10*3/uL [facility] RBC (Bld) [#/Vol] 4.71 10*6/uL 3.90 - 5.20 m/uL [facility] WBC (Bld) [#/Vol] 9.66 10*3/uL [facility] Basophils (Bld) [#/Vol] 0.05 10*3/uL Normal <0.11 [facility] Comment on above: Order Comment: Speci men Type: BLOOD SPECIMENOrdering Facility: [facility] Address: [address] [place] [address] Performed By: #### 5 7021-8 ####[facility] LABCLIA [id number] [place] [address] [place] Basophils/100 WBC (Bld) 0.5 % Normal [facility] Comment on above: Order Comment: Speci men Type: BLOOD SPECIMENOrdering Facility: [facility] Address: [address] [place] [address] Performed By: #### 5 7021-8 ####[facility] LABCLIA [id number] [place] [address] [place] Differential cell count method Nom (Bld) Auto Normal [facility] Comment on above: Order Comment: Speci men Type: BLOOD SPECIMENOrdering Facility: [facility] Address: [address] [place] [address] Performed By: #### 5 7021-8 ####[facility] LABCLIA [id number] [place] [address] [place] Eosinophils (Bld) [#/Vol] 0.07 10*3/uL Normal <0.46 [facility] Comment on above: Order Comment: Speci men Type: BLOOD SPECIMENOrdering Facility: [facility] Address: [address] [place] [address] Performed By: #### 5 7021-8 ####[facility] LABCLIA [id number] [place] [address] [place] Eosinophils/100 WBC (Bld) 0.7 % Normal [facility] Comment on above: Order Comment: Speci men Type: BLOOD SPECIMENOrdering Facility: [facility] Address: [address] [place] [address] Performed By: #### 5 7021-8 ####[facility] LABCLIA [id number] [place] [address] [place] Erythrocyte distribution width (RBC) [Ratio] 14.3 % Normal 11.5-15.0 [facility] Comment on above: Order Comment: Speci men Type: BLOOD SPECIMENOrdering Facility: [facility] Address: [address] [place] [address] Performed By: #### 5 7021-8 ####[facility] LABCLIA [id number] [address] [id number] [address] [place] Hematocrit (Bld) [Volume fraction] 44.6 % Normal 36.0-46.0 [facility] Comment on above: Order Comment: Speci men Type: BLOOD SPECIMENOrdering Facility: [facility] Address: [address] [place] [address] Performed By: #### 5 7021-8 ####[facility] LABCLIA [id number] [place] [address] [place] Hemoglobin (Bld) [Mass/Vol] 13.6 g/dL Normal 11.5-15.5 [facility] Comment on above: Order Comment: Speci men Type: BLOOD SPECIMENOrdering Facility: [facility] Address: [address] [place] [address] Performed By: #### 5 7021-8 ####[facility] LABCLIA [id number] [place] [address] [place] Immature granulocytes (Bld) [#/Vol] 0.05 10*3/uL Normal <0.10 [facility] Comment on above: Order Comment: Speci men Type: BLOOD SPECIMENOrdering Facility: [facility] Address: [address] [place] [address] Performed By: #### 5 7021-8 ####[facility] LABCLIA [id number] [place] [address] [place] Immature granulocytes/100 WBC (Bld) 0.5 % Normal [facility] Comment on above: Order Comment: Speci men Type: BLOOD SPECIMENOrdering Facility: [facility] Address: [address] [place] [address] Performed By: #### 5 7021-8 ####[facility] LABCLIA [id number] [place] [address] [place] Lymphocytes (Bld) [#/Vol] 2.43 10*3/uL Normal 1.00-4.00 [facility] Comment on above: Order Comment: Speci men Type: BLOOD SPECIMENOrdering Facility: [facility] Address: [address] [place] [address] Performed By: #### 5 7021-8 ####[facility] LABCLIA [id number] [place] [address] [place] Lymphocytes/100 WBC (Bld) 25.2 % Normal [facility] Comment on above: Order Comment: Speci men Type: BLOOD SPECIMENOrdering Facility: [facility] Address: [address] [place] [address] Performed By: #### 5 7021-8 ####[facility] LABCLIA [id number] [place] [address] [place] MCH (RBC) [Entitic mass] 28.9 pg Normal 26.0-34.0 [facility] Comment on above: Order Comment: Speci men Type: BLOOD SPECIMENOrdering Facility: [facility] Address: [address] [place] [address] Performed By: #### 5 7021-8 ####[facility] LABIA [id number] [place] [address] [place] MCHC (RBC) [Mass/Vol] 30.5 g/dL Normal 30.5-36.0 [facility] Comment on above: Order Comment: Speci men Type: BLOOD SPECIMENOrdering Facility: [facility] Address: [address] [place] [address] Performed By: #### 5 7021-8 ####[facility] LABCLIA [id number] [place] [address] [place] MCV (RBC) [Entitic vol] 94.7 fL Normal 80.0-100.0 [facility] Comment on above: Order Comment: Speci men Type: BLOOD SPECIMENOrdering Facility: [facility] Address: [address] [place] [address] Performed By: #### 5 7021-8 ####[facility] LABCLIA [id number] [place] [address] [place] Monocytes (Bld) [#/Vol] 0.66 10*3/uL Normal <0.87 [facility] Comment on above: Order Comment: Speci men Type: BLOOD SPECIMENOrdering Facility: [facility] Address: [address] [place] [address] Performed By: #### 5 7021-8 ####[facility] LABCLIA [id number] [place] [address] [place] Monocytes/100 WBC (Bld) 6.8 % Normal [facility] Comment on above: Order Comment: Speci men Type: BLOOD SPECIMENOrdering Facility: [facility] Address: [address] [place] [address] Performed By: #### 5 7021-8 ####[facility] LABCLIA [id number] [place] [address] [place] Neutrophils (Bld) [#/Vol] 6.40 10*3/uL Normal 1.45-7.50 [facility] Comment on above: Order Comment: Speci men Type: BLOOD SPECIMENOrdering Facility: [facility] Address: [address] [place] [address] Performed By: #### 5 7021-8 ####[facility] LABCLIA [id number] [place] [address] [place] Neutrophils/100 WBC (Bld) 66.3 % Normal [facility] Comment on above: Order Comment: Speci men Type: BLOOD SPECIMENOrdering Facility: [facility] Address: [address] [place] [address] Performed By: #### 5 7021-8 ####[facility] LABCLIA [id number] [place] [address] [place] Nucleated RBC (Bld) [#/Vol] 10*3/uL Normal <0.01 [facility] Comment on above: Order Comment: Speci men Type: BLOOD SPECIMENOrdering Facility: [facility] Address: [address] [place] [address] Performed By: #### 5 7021-8 ####[facility] LABIA [id number] [place] [address] [place] Nucleated RBC/100 WBC (Bld) [Ratio] 0.0 /100 WBC Normal [facility] Comment on above: Order Comment: Speci men Type: BLOOD SPECIMENOrdering Facility: [facility] Address: [address] [place] [address] Performed By: #### 5 7021-8 ####[facility] LABIA [id number] [place] [address] [place] Platelet mean volume (Bld) [Entitic vol] 9.6 fL Normal 9.0-12.7 [facility] Comment on above: Order Comment: Speci men Type: BLOOD SPECIMENOrdering Facility: [facility] Address: [address] [place] [address] Performed By: #### 5 7021-8 ####[facility] LABIA [id number] [place] [address] [place] Platelets (Bld) [#/Vol] 248 10*3/uL Normal 150-400 [facility] Comment on above: Order Comment: Speci men Type: BLOOD SPECIMENOrdering Facility: [facility] Address: [address] [place] [address] Performed By: #### 5 7021-8 ####[facility] LABIA [id number] [place] [address] [place] RBC (Bld) [#/Vol] 4.71 10*6/uL Normal 3.90-5.20 [facility] Comment on above: Order Comment: Speci men Type: BLOOD SPECIMENOrdering Facility: [facility] Address: [address] [place] [address] Performed By: #### 5 7021-8 ####[facility] LABCLIA [id number] [place] [id number] [place] WBC (Bld) [#/Vol] 9.66 10*3/uL Normal 3.70-11.00 [facility] Comment on above: Order Comment: Speci men Type: BLOOD SPECIMENOrdering Facility: [facility] Address: [address] [place] [address] Performed By: #### 5 7021-8 ####[facility] LABCLIA [id number] [place] [id number] [place] CNOVon 01-21-2024 CNOV Normal [facility] XR CHEST 2V FRONTAL/LATon XR CHEST 2V FRONTAL/LAT Normal [facility] XR Chest PA and Lateralon IMPRESSION: No acute radiographic abnormality. Transmission Calibration Engineer: SARWAT Transcribe Date/Time: Jan 21 2024 12:12P Dictated by : DELIO CALDWELL MD This examination was interpreted and the report reviewed and electronically signed by: DELIO CALDWELL MD on Jan 21 2024 12:13PM [facility] DIVISION OF RADIOLOGY * * *Final Report* [...] shows degenerative changes. DIVISION OF RADIOLOGY Provider, [facility] Carissa Viramontes - 01/21/2024 * [...] changes. IMPRESSION IMPRESSION: No acute radiographic abnormality. Transmission Calibration Engineer: SARWAT Transcribe Date/Time: Jan 21 2024 12:12P Dictated by : DELIO CALDWELL MD This examination was interpreted and the report reviewed and electronically signed by: DELIO CALDWELL MD on Jan 21 2024 12:13PM EST [facility] Radiology Study observation (narrative) [facility] XR Chest PA and LateralOrder ed By: Ccf Provider on 01-21-2024 [facility] CNPNon 01-18-2024 CNPN Normal [facility] CNOVon 01-13-2024 CNOV Normal [facility] CNPNon 01-11-2024 CNPN Normal [facility] CNPNon 01-05-2024 CNPN Normal [facility] .Auto Diffon 01-04-2024 Basophil, Absolute 0.0 10 3/mcL Normal 0.0-0.2 [facility] ([place]) Comment on above: Performed By: #### M DW, CBC, ADIFF, BMP, ANEU, GFR, TROPHS, PBNP #### [address] [address] Basophils/100 WBC (Bld) 0.3 % Normal 0.0-2.5 [facility] ([place]) Comment on above: Performed By: #### M DW, CBC, ADIFF, BMP, ANEU, GFR, TROPHS, PBNP #### [id number] [place], [place] [address] Eosinophil, Absolute 0.1 10 3/mcL Normal 0.0-0.4 [facility] ([place]) Comment on above: Performed By: #### M DW, CBC, ADIFF, BMP, ANEU, GFR, TROPHS, PBNP #### [address] [address] Eosinophils/100 WBC (Bld) 0.9 % Normal 0.0-7.0 [facility] ([place]) Comment on above: Performed By: #### M DW, CBC, ADIFF, BMP, ANEU, GFR, TROPHS, PBNP #### [address] [address] Lymphocyte, Absolute 2.1 10 3/mcL Normal 0.8-3.9 [facility] ([place]) Comment on above: Performed By: #### M DW, CBC, ADIFF, BMP, ANEU, GFR, TROPHS, PBNP #### [address] [address] Lymphocytes/100 WBC (Bld) 24.7 % Normal 10.0-50.0 [facility] ([place]) Comment on above: Performed By: #### M DW, CBC, ADIFF, BMP, ANEU, GFR, TROPHS, PBNP #### [address] [address] Monocyte, Absolute 0.5 10 3/mcL Normal 0.2-1.0 [facility] ([place]) Comment on above: Performed By: #### M DW, CBC, ADIFF, BMP, ANEU, GFR, TROPHS, PBNP #### [address] [address] Monocytes/100 WBC (Bld) 6.4 % Normal 1.7-13.0 [facility] ([place]) Comment on above: Performed By: #### M DW, CBC, ADIFF, BMP, ANEU, GFR, TROPHS, PBNP #### [address] [address] Neutrophils/100 WBC (Bld) 67.7 % Normal 37.0-80.0 [facility] ([place]) Comment on above: Performed By: #### M DW, CBC, ADIFF, BMP, ANEU, GFR, TROPHS, PBNP #### [address] [address] .GFRon 01-04-2024 GFR 89 ml/min/1.73sqm Normal [facility] ([place]) Comment on above: Result Comment: GFR Population [...] ADIFF, BMP, ANEU, GFR, TROPHS, PBNP #### [address] [address] GFR Non- 73 ml/min/1.73sqm Normal [facility] ([place]) Comment on above: Result Comment: GFR Population [...] ADIFF, BMP, ANEU, GFR, TROPHS, PBNP #### [address] [address] .MDWon 01-04-2024 Monocyte Distribution Width 18.79 Normal 0.00-20.00 [facility] ([place]) Comment on above: Result Comment: For ED adult patients suspected of sepsis, MDW<=20.0 does not rule out sepsis or risk of sepsis Performed By: #### M DW, CBC, ADIFF, BMP, ANEU, GFR, TROPHS, PBNP #### [address] [address] .NEUABSon 01-04-2024 Neutrophil, Absolute 5.8 10 3/mcL Normal 2.9-6.2 [facility] ([place]) Comment on above: Performed By: #### M DW, CBC, ADIFF, BMP, ANEU, GFR, TROPHS, PBNP #### [address] [address] BMPon 01-04-2024 BUN/Creatinine Ratio 13 ratio Normal 7-27 [facility] ([place]) Comment on above: Performed By: #### M DW, CBC, ADIFF, BMP, ANEU, GFR, TROPHS, PBNP #### [address] [address] Calcium [Mass/Vol] 8.9 mg/dL Normal 8.4-10.2 [facility] ([place]) Comment on above: Performed By: #### M DW, CBC, ADIFF, BMP, ANEU, GFR, TROPHS, PBNP #### [address] [address] Chloride [Moles/Vol] 105 mmol/L Normal 98-107 [facility] ([place]) Comment on above: Performed By: #### M DW, CBC, ADIFF, BMP, ANEU, GFR, TROPHS, PBNP #### [address] [address] CO2 [Moles/Vol] 28 mmol/L Normal 22-29 [facility] ([place]) Comment on above: Performed By: #### M DW, CBC, ADIFF, BMP, ANEU, GFR, TROPHS, PBNP #### [address] [address] Creatinine [Mass/Vol] 0.84 mg/dL Normal 0.55-1.02 [facility] ([place]) Comment on above: Performed By: #### M DW, CBC, ADIFF, BMP, ANEU, GFR, TROPHS, PBNP #### [address] [address] Electrolyte Balance 8.0 mEq/L Normal 4.0-15.0 [facility] ([place]) Comment on above: Performed By: #### M DW, CBC, ADIFF, BMP, ANEU, GFR, TROPHS, PBNP #### [address] [address] Glucose [Mass/Vol] 116 mg/dL High 70-105 [facility] ([place]) Comment on above: Performed By: #### M DW, CBC, ADIFF, BMP, ANEU, GFR, TROPHS, PBNP #### [address] [address] Potassium [Moles/Vol] 4.0 mmol/L Normal 3.5-5.1 [facility] ([place]) Comment on above: Performed By: #### M DW, CBC, ADIFF, BMP, ANEU, GFR, TROPHS, PBNP #### [address] [address] Sodium [Moles/Vol] 141 mmol/L Normal 136-145 [facility] ([place]) Comment on above: Performed By: #### M DW, CBC, ADIFF, BMP, ANEU, GFR, TROPHS, PBNP #### [address] [address] Urea nitrogen [Mass/Vol] 11 mg/dL Normal 7-18 [facility] ([place]) Comment on above: Performed By: #### M DW, CBC, ADIFF, BMP, ANEU, GFR, TROPHS, PBNP #### [address] [address] CBCon 01-04-2024 Erythrocyte distribution width (RBC) [Ratio] 15.0 % High 11.5-14.5 [facility] ([place]) Comment on above: Performed By: #### M DW, CBC, ADIFF, BMP, ANEU, GFR, TROPHS, PBNP #### [address] [place] [address] Hematocrit (Bld) [Volume fraction] 43.7 % Normal 37.0-47.0 [facility] ([place]) Comment on above: Performed By: #### M DW, CBC, ADIFF, BMP, ANEU, GFR, TROPHS, PBNP #### [place] [address] Hgb 14.3 G/dL Normal 12.0-16.0 [facility] ([place]) Comment on above: Performed By: #### M DW, CBC, ADIFF, BMP, ANEU, GFR, TROPHS, PBNP #### [place] [address] MCH (RBC) [Entitic mass] 30.0 pg Normal 27.0-31.2 [facility] ([place]) Comment on above: Performed By: #### M DW, CBC, ADIFF, BMP, ANEU, GFR, TROPHS, PBNP #### [place] [address] MCHC 32.8 G/dL Low 33.0-37.0 [facility] ([place]) Comment on above: Performed By: #### M DW, CBC, ADIFF, BMP, ANEU, GFR, TROPHS, PBNP #### [place] [id number] MCV (RBC) [Entitic vol] 91.5 fL Normal 80.0-94.0 [facility] ([place]) Comment on above: Performed By: #### M DW, CBC, ADIFF, BMP, ANEU, GFR, TROPHS, PBNP #### [address] [place] [address] Platelet 237 10 3/mcL Normal 130-400 [facility] ([place]) Comment on above: Performed By: #### M DW, CBC, ADIFF, BMP, ANEU, GFR, TROPHS, PBNP #### [phone] Platelet mean volume (Bld) [Entitic vol] 7.2 fL Low 7.4-10.4 [facility] ([place]) Comment on above: Performed By: #### M DW, CBC, ADIFF, BMP, ANEU, GFR, TROPHS, PBNP #### [facility] [address] [place], [place] [address] RBC 4.78 10 6/mcL Normal 4.20-5.40 [facility] ([place]) Comment on above: Performed By: #### M DW, CBC, ADIFF, BMP, ANEU, GFR, TROPHS, PBNP #### [address] [place], [place] [address] WBC 8.6 10 3/mcL Normal 4.6-10.8 [facility] ([place]) Comment on above: Performed By: #### M DW, CBC, ADIFF, BMP, ANEU, GFR, TROPHS, PBNP #### [address] [address] CNPNon 01-04-2024 CNPN Normal [facility] CT ANGIOGRAPHY CHEST W/CONTR Marcio 01-04-2024 [...] 01/04/2024 6:51:36 PM Ordering Provider: ROSA Aranda [facility] ([place]) LABORATORYOrdered By: SYSTEM SYSTEM on 01-04-2024 Basophil, [...] a homogeneous sandwich chemiluminescent immunoassay based on DNA Direct technology. Urea nitrogen [Mass/Vol] 11 mg/dL Normal 7 - 18 mg/dL AO ADM SS Urea nitrogen/Creatinine [Mass ratio] 13 ratio Normal 7 - 27 ratio AO ADM SS WBC (Bld) [#/Vol] 8.6 103/mcL Normal 4.6 - 10.8 10^3/mcL AO Workflow SS PBNPon 01-04-2024 Natriuretic peptide B (Bld) [Mass/Vol] 11 pg/mL Normal 0-125 [facility] ([place]) Comment on above: Result Comment: NT-p roBNP results of less than 300 pg/mL effectively rules out acute congestive heart failure with 99% negative predictive value. Performed By: #### M DW, CBC, ADIFF, BMP, ANEU, GFR, TROPHS, PBNP #### [address] [address] TROPHSon 01-04-2024 High Sensitivity Troponin I <4 Normal 0-51 [facility] ([place]) Comment on above: Result Comment: High Sensitive Troponin I Reference Ranges: Female: 0-51 ng/L Male: 0-76 ng/L Testing performed on Dimension EXL using a homogeneous sandwich chemiluminescent immunoassay based on DNA Direct technology. Performed By: #### M DW, CBC, ADIFF, BMP, ANEU, GFR, TROPHS, PBNP #### [address] [address] Basic metabolic 2000 panelon 01-03-2024 Anion gap [Moles/Vol] 11 mmol/L Normal 8-15 [facility] Comment on above: Order Comment: Speci men Type: BLOOD SPECIMENOrdering Facility: [facility] Address: [address] [place] [address] Performed By: #### 2 4321-2, 57517-1, 39384-3 ####[facility] LABCLIA [id number] [place] [address] [place] Calcium [Mass/Vol] 9.7 mg/dL Normal 8.5-10.2 [facility] Comment on above: Order Comment: Speci men Type: BLOOD SPECIMENOrdering Facility: [facility] Address: [address] [place] [address] Performed By: #### 2 4321-2, 24599-8, 85792-7 ####[facility] LABCLIA [id number] [place] [address] [place] Chloride [Moles/Vol] 104 mmol/L Normal 98-107 [facility] Comment on above: Order Comment: Speci men Type: BLOOD SPECIMENOrdering Facility: [facility] Address: [address] [place] [address] Performed By: #### 2 4321-2, 04014-6, 95402-9 ####[facility] LABIA [id number] [place] [address] [place] CO2 [Moles/Vol] 25 mmol/L Normal 22-30 [facility] Comment on above: Order Comment: Speci men Type: BLOOD SPECIMENOrdering Facility: [facility] Address: [address] [place] [address] Performed By: #### 2 4321-2, 28139-3, 95964-2 ####[facility] LABIA [id number] [place] [id number] [place] Creatinine [Mass/Vol] 0.77 mg/dL Normal 0.58-0.96 [facility] Comment on above: Order Comment: Speci men Type: BLOOD SPECIMENOrdering Facility: [facility] Address: [address] [place] [address] Performed By: #### 2 4321-2, 38679-2, 87491-7 ####[facility] LABIA [id number] [place] [address] [place] Creatinine and Glomerular filtration rate.predicted panel (S/P/Bld) 97 mL/min/1.73m??? Normal >=60 [facility] Comment on above: Order Comment: Rashad irwin Type: BLOOD SPECIMENOrdering Facility: [facility] Address: [address] [place] [address] Result Comment: Jen mated Glomerular Filtration Rate [...] actual GFR. Performed By: #### 2 4321-2, 80312-5, 84498-8 ####[facility] LABIA [id number] [place] [address] [place] Glucose [Mass/Vol] 90 mg/dL Normal 74-99 [facility] Comment on above: Order Comment: Rashad irwin Type: BLOOD SPECIMENOrdering Facility: [facility] Address: [address] [place] [address] Result Comment: The [place] [employer] (ADA) provides guidance for cutoff [...] Standards of Medical Care in Diabetes 2016, [place] [employer]. Diabetes Care. 2016.39(Suppl 1). Performed By: #### 2 4321-2, 69351-9, 88046-3 ####[facility] LABCLIA [id number] [place] [id number] [place] Potassium [Moles/Vol] 4.4 mmol/L Normal 3.7-5.1 [facility] Comment on above: Order Comment: Speci men Type: BLOOD SPECIMENOrdering Facility: [facility] Address: [address] [place] [address] Performed By: #### 2 4321-2, , 55366-2 ####[facility] LABCLIA [id number] [place] [address] [place] Sodium [Moles/Vol] 140 mmol/L Normal 136-144 [facility] Comment on above: Order Comment: Speci men Type: BLOOD SPECIMENOrdering Facility: [facility] Address: [address] [place] [address] Performed By: #### 2 4321-2, , 45493-0 ####[facility] LABCLIA [id number] [place] [address] [place] Urea nitrogen [Mass/Vol] 16 mg/dL Normal 7-21 [facility] Comment on above: Order Comment: Speci men Type: BLOOD SPECIMENOrdering Facility: [facility] Address: [address] [place] [address] Performed By: #### 2 4321-2, , 19487-4 ####[facility] LABCLIA [id number] [place] [id number] [place] CBC W Auto Differential pane l (Bld)on 01-03-2024 Basophils (Bld) [#/Vol] 0.04 10*3/uL [facility] Basophils/100 WBC (Bld) 0.4 % [facility] Differential cell count method Nom (Bld) Auto [facility] Eosinophils (Bld) [#/Vol] 0.06 10*3/uL [facility] Eosinophils/100 WBC (Bld) 0.6 % [facility] Erythrocyte distribution width (RBC) [Ratio] 14.2 % 11.5 - 15.0 % [facility] Hematocrit (Bld) [Volume fraction] 48.0 % High 36.0 - 46.0 % [facility] Hemoglobin (Bld) [Mass/Vol] 14.6 g/dL 11.5 - 15.5 g/dL [facility] Immature granulocytes (Bld) [#/Vol] 0.04 10*3/uL [facility] Immature granulocytes/100 WBC (Bld) 0.4 % [facility] Interpretation and review of laboratory results Abnormal [facility] Lymphocytes (Bld) [#/Vol] 2.70 10*3/uL [facility] Lymphocytes/100 WBC (Bld) 27.7 % [facility] MCH (RBC) [Entitic mass] 29.0 pg 26.0 - 34.0 pg [facility] MCHC (RBC) [Mass/Vol] 30.4 g/dL Low 30.5 - 36.0 g/dL [facility] MCV (RBC) [Entitic vol] 95.2 fL 80.0 - 100.0 fL [facility] Monocytes (Bld) [#/Vol] 0.59 10*3/uL [facility] Monocytes/100 WBC (Bld) 6.0 % [facility] Neutrophils (Bld) [#/Vol] 6.33 10*3/uL [facility] Neutrophils/100 WBC (Bld) 64.9 % [facility] Nucleated RBC (Bld) [#/Vol] [facility] Nucleated RBC/100 WBC (Bld) [Ratio] 0.0 % /100 WBC [facility] Platelet mean volume (Bld) [Entitic vol] 9.9 fL 9.0 - 12.7 fL [facility] Platelets (Bld) [#/Vol] 262 10*3/uL [facility] RBC (Bld) [#/Vol] 5.04 10*6/uL 3.90 - 5.20 m/uL [facility] WBC (Bld) [#/Vol] 9.76 10*3/uL [facility] Basophils (Bld) [#/Vol] 0.04 10*3/uL Normal <0.11 [facility] Comment on above: Order Comment: Speci men Type: BLOOD SPECIMENOrdering Facility: [facility] Address: [address] [place] [address] Performed By: #### 5 7021-8 ####[facility] LABCLIA [id number] [place] [address] [place] Basophils/100 WBC (Bld) 0.4 % Normal [facility] Comment on above: Order Comment: Speci men Type: BLOOD SPECIMENOrdering Facility: [facility] Address: [address] [place] [address] Performed By: #### 5 7021-8 ####[facility] LABCLIA [id number] [place] [address] [place] Differential cell count method Nom (Bld) Auto Normal [facility] Comment on above: Order Comment: Speci men Type: BLOOD SPECIMENOrdering Facility: [facility] Address: [address] [place] [address] Performed By: #### 5 7021-8 ####[facility] LABCLIA [id number] [place] [address] [place] Eosinophils (Bld) [#/Vol] 0.06 10*3/uL Normal <0.46 [facility] Comment on above: Order Comment: Speci men Type: BLOOD SPECIMENOrdering Facility: [facility] Address: [address] [place] [address] Performed By: #### 5 7021-8 ####[facility] LABCLIA [id number] [place] [address] [place] Eosinophils/100 WBC (Bld) 0.6 % Normal [facility] Comment on above: Order Comment: Speci men Type: BLOOD SPECIMENOrdering Facility: [facility] Address: [address] [place] [address] Performed By: #### 5 7021-8 ####[facility] LABCLIA [id number] [address] [place] Erythrocyte distribution width (RBC) [Ratio] 14.2 % Normal 11.5-15.0 [facility] Comment on above: Order Comment: Speci men Type: BLOOD SPECIMENOrdering Facility: [facility] Address: [address] [place] [address] Performed By: #### 5 7021-8 ####[facility] LABCLIA [id number] [place] [address] [place] Hematocrit (Bld) [Volume fraction] 48.0 % High 36.0-46.0 [facility] Comment on above: Order Comment: Speci men Type: BLOOD SPECIMENOrdering Facility: [facility] Address: [address] [place] [address] Performed By: #### 5 7021-8 ####[facility] LABIA [id number] [place] [address] [place] Hemoglobin (Bld) [Mass/Vol] 14.6 g/dL Normal 11.5-15.5 [facility] Comment on above: Order Comment: Speci men Type: BLOOD SPECIMENOrdering Facility: [facility] Address: [address] [place] [address] Performed By: #### 5 7021-8 ####[facility] LABIA [id number] [place] [address] [place] Immature granulocytes (Bld) [#/Vol] 0.04 10*3/uL Normal <0.10 [facility] Comment on above: Order Comment: Speci men Type: BLOOD SPECIMENOrdering Facility: [facility] Address: [address] [place] [address] Performed By: #### 5 7021-8 ####[facility] LABCLIA [id number] [place] [address] [place] Immature granulocytes/100 WBC (Bld) 0.4 % Normal [facility] Comment on above: Order Comment: Speci men Type: BLOOD SPECIMENOrdering Facility: [facility] Address: [address] [place] [address] Performed By: #### 5 7021-8 ####[facility] LABCLIA [id number] [place] [address] [place] Lymphocytes (Bld) [#/Vol] 2.70 10*3/uL Normal 1.00-4.00 [facility] Comment on above: Order Comment: Speci men Type: BLOOD SPECIMENOrdering Facility: [facility] Address: [address] [place] [address] Performed By: #### 5 7021-8 ####[facility] LABCLIA [id number] [place] [address] [place] Lymphocytes/100 WBC (Bld) 27.7 % Normal [facility] Comment on above: Order Comment: Speci men Type: BLOOD SPECIMENOrdering Facility: [facility] Address: [address] [place] [address] Performed By: #### 5 7021-8 ####[facility] LABCLIA [id number] [place] [address] [place] MCH (RBC) [Entitic mass] 29.0 pg Normal 26.0-34.0 [facility] Comment on above: Order Comment: Speci men Type: BLOOD SPECIMENOrdering Facility: [facility] Address: [address] [place] [address] Performed By: #### 5 7021-8 ####[facility] LABCLIA [id number] [place] [address] [place] MCHC (RBC) [Mass/Vol] 30.4 g/dL Low 30.5-36.0 [facility] Comment on above: Order Comment: Speci men Type: BLOOD SPECIMENOrdering Facility: [facility] Address: [address] [place] [address] Performed By: #### 5 7021-8 ####[facility] LABCLIA [id number] [place] [address] [place] MCV (RBC) [Entitic vol] 95.2 fL Normal 80.0-100.0 [facility] Comment on above: Order Comment: Speci men Type: BLOOD SPECIMENOrdering Facility: [facility] Address: [address] [place] [address] Performed By: #### 5 7021-8 ####[facility] LABCLIA [id number] [place] [address] [place] Monocytes (Bld) [#/Vol] 0.59 10*3/uL Normal <0.87 [facility] Comment on above: Order Comment: Speci men Type: BLOOD SPECIMENOrdering Facility: [facility] Address: [address] [place] [address] Performed By: #### 5 7021-8 ####[facility] LABCLIA [id number] [place] [address] [place] Monocytes/100 WBC (Bld) 6.0 % Normal [facility] Comment on above: Order Comment: Speci men Type: BLOOD SPECIMENOrdering Facility: [facility] Address: [address] [place] [address] Performed By: #### 5 7021-8 ####[facility] LABCLIA [id number] [place] [address] [place] Neutrophils (Bld) [#/Vol] 6.33 10*3/uL Normal 1.45-7.50 [facility] Comment on above: Order Comment: Speci men Type: BLOOD SPECIMENOrdering Facility: [facility] Address: [address] [place] [address] Performed By: #### 5 7021-8 ####[facility] LABCLIA [id number] [place] [address] [place] Neutrophils/100 WBC (Bld) 64.9 % Normal [facility] Comment on above: Order Comment: Speci men Type: BLOOD SPECIMENOrdering Facility: [facility] Address: [address] [place] [address] Performed By: #### 5 7021-8 ####[facility] LABCLIA [id number] [place] [address] [place] Nucleated RBC (Bld) [#/Vol] 10*3/uL Normal <0.01 [facility] Comment on above: Order Comment: Speci men Type: BLOOD SPECIMENOrdering Facility: [facility] Address: [address] [place] [address] Performed By: #### 5 7021-8 ####[facility] LABCLIA [id number] [place] [address] [place] Nucleated RBC/100 WBC (Bld) [Ratio] 0.0 /100 WBC Normal [facility] Comment on above: Order Comment: Speci men Type: BLOOD SPECIMENOrdering Facility: [facility] Address: [address] [place] [address] Performed By: #### 5 7021-8 ####[facility] LABCLIA [id number] [place] [address] [place] Platelet mean volume (Bld) [Entitic vol] 9.9 fL Normal 9.0-12.7 [facility] Comment on above: Order Comment: Speci men Type: BLOOD SPECIMENOrdering Facility: [facility] Address: [address] [place] [address] Performed By: #### 5 7021-8 ####[facility] LABCLIA [id number] [place] [address] [place] Platelets (Bld) [#/Vol] 262 10*3/uL Normal 150-400 [facility] Comment on above: Order Comment: Speci men Type: BLOOD SPECIMENOrdering Facility: [facility] Address: [address] [place] [address] Performed By: #### 5 7021-8 ####[facility] [id number] [place] [address] [place] RBC (Bld) [#/Vol] 5.04 10*6/uL Normal 3.90-5.20 [facility] Comment on above: Order Comment: Speci men Type: BLOOD SPECIMENOrdering Facility: [facility] Address: [address] [place] [address] Performed By: #### 5 7021-8 ####[facility] [id number] [place] [address] [place] WBC (Bld) [#/Vol] 9.76 10*3/uL Normal 3.70-11.00 [facility] Comment on above: Order Comment: Speci men Type: BLOOD SPECIMENOrdering Facility: [facility] Address: [address] [place] [address] Performed By: #### 5 7021-8 ####[facility] [id number] [place] [address] [place] CNOVon 01-03-2024 CNOV Normal [facility] D dimer FEU PPP-mCncon 01-02 Fibrin D-dimer FEU (PPP) [Mass/Vol] 970 ng/mL FEU High <500 [facility] Comment on above: Order Comment: Speci men Type: BLOOD SPECIMENOrdering Facility: [facility] Address: [address] [place] [address] Result Comment: Froz en Plasma Aliquot Performed By: #### 4 8065-7 ####[facility] [id number] [place] [address] [place] D-DIMEROrdered By: Vance Soriano on 01-03-2024 Fibrin D-dimer FEU (PPP) [Mass/Vol] 970 High NINF [facility] Comment on above: Frozen Plasma Aliquo t ECG COMPLETEon 01-03-2024 Atrial Rate 75 BPM [facility] Calculated P Parker 51 degrees [facility] Calculated R Parker 48 degrees [facility] Calculated T Parker 35 degrees [facility] P-R Interval 194 ms [facility] QRS Duration 78 ms [facility] QT Interval 372 ms [facility] QTC Calculation (Bazett) 415 ms [facility] Ventricular Rate 75 BPM [facility] NORMAL SINUS RHYTHM NORMAL ECG Confirmed by MD THOMPSON QARAB ([id number]) on 01/03/2024 4:19:53 PM [facility] NAME : DARREN REINOSO PID : [id number] : 1980 Gender : Female Race : ORD : [id number] Procedure Date : Jan 03 2024 12:31:49 Edit Date : Jan 03 2024 16:20:00 Diagnosis: NORMAL SINUS RHYTHM NORMAL ECG Confirmed by MD THOMPSON QARAB ([id number]) on 01/03/2024 4:19:53 PM Test Reason : R07.9 Chest pain, unspecified type Location : 185 : [facility] Overread By : MD THOMPSON QARAB Edited By : MD THOMPSON QARAB Referred By : , Acquired by : , [facility] ECG COMPLETE Normal [facility] Fibrin D-dimer FEU (PPP) [Ma ss/Vol]Ordered By: Vance Grover on 01-03-2024 Interpretation and review of laboratory results Abnormal [facility] 500 ng/mL FEU is the [...] et al. Odette Int Med 2016 165:253. [facility] Magnesium [facility] 01-02 Magnesium [Mass/Vol] 2.1 mg/dL Normal 1.7-2.3 [facility] Comment on above: Order Comment: Speci men Type: BLOOD SPECIMENOrdering Facility: [facility] Address: [address] [place] [address] Performed By: #### 2 4321-2, 24486-7, 35903-6 ####[facility] LABIA [id number] [address] [place] NT-proBNP [facility] [place] 01-02 Natriuretic peptide.B prohormone N-Terminal [Mass/Vol] <36 Normal <125 [facility] Comment on above: Order Comment: Speci men Type: BLOOD SPECIMENOrdering Facility: [facility] Address: [address] [place] [address] Performed By: #### 2 4321-2, 96625-9, 67763-6 ####[facility] LABIA [id number] [address] [place] XR CHEST 2V FRONTAL/LATon XR CHEST 2V FRONTAL/LAT Normal [facility] XR Chest PA and Lateralon IMPRESSION: No acute radiographic abnormality. Transmission Calibration Engineer[facility] Transcribe Date/Time: Jan 03 2024 3:55P Dictated by : DELIO CALDWELL MD This examination was interpreted and the report reviewed and electronically signed by: DELIO CALDWELL MD on Jan 03 2024 3:55PM [facility] DIVISION OF RADIOLOGY * * *Final Report* [...] shows degenerative changes. DIVISION OF RADIOLOGY Provider, [facility] Carissa [facility] - 01/03/2024 * * *Final Report* [...] changes. IMPRESSION IMPRESSION: No acute radiographic abnormality. Transmission Calibration Engineer: SARWAT Transcribe Date/Time: Jan 03 2024 3:55P Dictated by : DELIO CALDWELL MD This examination was interpreted and the report reviewed and electronically signed by: DELIO CALDWELL MD on Jan 03 2024 3:55PM [facility] Radiology Study observation (narrative) [facility] XR Chest PA and LateralOrder ed By: Ccf Provider on 01-03-2024 [facility] No Panel Informationon 11-22 IMPRESSION: Hepatic steatosis. Nonenlarged spleen. Transmission Calibration Engineer: [facility] Transcribe Date/Time: Nov 23 2023 11:03A Dictated by : GHAZALA HAQ MD This examination was interpreted and the report reviewed and electronically signed by: GHAZALA HAQ MD on Nov 23 2023 11:06AM [facility] RADIOLOGY No Panel InformationOrdered By: Ccf Provider on 11-23-2023 [facility] US Abdomen RUQon 11-23-2023 * [...] cm, normal. There are no splenic lesions. [facility] RADIOLOGY Provider, Latisha Virmaontes - 11/23/2023 * * *Final Report* * [...] lesions. IMPRESSION IMPRESSION: Hepatic steatosis. Nonenlarged spleen. Transmission Calibration Engineer: SARWAT Transcribe Date/Time: Nov 23 2023 11:03A Dictated by : GHAZALA HAQ MD This examination was interpreted and the report reviewed and electronically signed by: GHAZALA HAQ MD on Nov 23 2023 11:06AM EST [facility] Radiology Study observation (narrative) [facility] US Spleenon 11-23-2023 * * [...] cm, normal. There are no splenic lesions. [facility] RADIOLOGY Provider, [facility] Carissa Viramontes - 11/23/2023 * [...] lesions. IMPRESSION IMPRESSION: Hepatic steatosis. Nonenlarged spleen. Transmission Calibration Engineer: SARWAT Transcribe Date/Time: Nov 23 2023 11:03A Dictated by : GHAZALA HAQ MD This examination was interpreted and the report reviewed and electronically signed by: GHAZALA HAQ MD on Nov 23 2023 11:06AM EST [facility] Radiology Study observation (narrative) [facility] AMYLASEon 11-16-2023 Amylase [Catalytic activity/Vol] 29 U/L Low 30 - 104 U/L [facility] Comprehensive metabolic 2000 panelon 11-16-2023 Albumin [Mass/Vol] 3.9 g/dL 3.9 - 4.9 g/dL [facility] ALP [Catalytic activity/Vol] 104 U/L 34 - 123 U/L [facility] ALT [Catalytic activity/Vol] 43 U/L High 7 - 38 U/L [facility] Anion gap [Moles/Vol] 10 mmol/L 8 - 15 mmol/L [facility] AST [Catalytic activity/Vol] 27 U/L 13 - 35 U/L [facility] Bilirubin [Mass/Vol] 0.3 mg/dL 0.2 - 1 .3 mg/dL [facility] Calcium [Mass/Vol] 9.4 mg/dL 8.5 - 10. 2 mg/dL [facility] Chloride [Moles/Vol] 106 mmol/L 98 - 10 7 mmol/L [facility] CO2 [Moles/Vol] 24 mmol/L 22 - 30 mmol/L [facility] Creatinine [Mass/Vol] 0.73 mg/dL 0.58 - 0.96 mg/dL [facility] GFR/1.73 sq M.predicted among non-blacks MDRD (S/P/Bld) [Vol rate/Area] 104 mL/min/{1.73_m2} - PINF [facility] Comment on above: Estimated Glomerular [...] 103 mg/dL High 74 - 99 mg/dL [facility] Comment on above: The [place] Diabete s Association (ADA) provides guidance for [...] Standards of Medical Care in Diabetes 2016, [place] Diabetes [employer]. Diabetes Care. 2016.39(Suppl 1). Potassium [Moles/Vol] 4.1 mmol/L 3.7 - 5.1 mmol/L [facility] Protein [Mass/Vol] 6.8 g/dL 6.3 - 8.0 g/dL [facility] Sodium [Moles/Vol] 140 mmol/L 136 - 144 mmol/L [facility] Urea nitrogen [Mass/Vol] 10 mg/dL 7 - 21 mg/dL [facility] LIPASEon 11-16-2023 Lipase [Catalytic activity/Vol] 13 U/L Low 16 - 61 U/L [facility] No Panel Informationon 11-15 Interpretation and review of laboratory results Abnormal [facility] CBC W Auto Differential pane l (Bld)on 11-15-2023 Basophils (Bld) [#/Vol] 0.03 10*3/uL NINF [facility] Basophils/100 WBC (Bld) 0.3 % [facility] Differential cell count method Nom (Bld) Auto [facility] Eosinophils (Bld) [#/Vol] 0.07 10*3/uL [facility] Eosinophils/100 WBC (Bld) 0.8 % [facility] Erythrocyte distribution width (RBC) [Ratio] 13.9 % 11.5 - 15.0 % [facility] Hematocrit (Bld) [Volume fraction] 45.2 % 36.0 - 46.0 % [facility] Hemoglobin (Bld) [Mass/Vol] 13.9 g/dL 11.5 - 15.5 g/dL [facility] Immature granulocytes (Bld) [#/Vol] 0.08 10*3/uL [facility] Immature granulocytes/100 WBC (Bld) 0.9 % [facility] Lymphocytes (Bld) [#/Vol] 2.59 10*3/uL [facility] Lymphocytes/100 WBC (Bld) 28.3 % [facility] MCH (RBC) [Entitic mass] 29.2 pg 26.0 - 34.0 pg [facility] MCHC (RBC) [Mass/Vol] 30.8 g/dL 30.5 - 36.0 g/dL [facility] MCV (RBC) [Entitic vol] 95.0 fL 80.0 - 100.0 fL [facility] Monocytes (Bld) [#/Vol] 0.64 10*3/uL [facility] Monocytes/100 WBC (Bld) 7.0 % [facility] Neutrophils (Bld) [#/Vol] 5.74 10*3/uL [facility] Neutrophils/100 WBC (Bld) 62.7 % [facility] Nucleated RBC (Bld) [#/Vol] [facility] Nucleated RBC/100 WBC (Bld) [Ratio] 0.0 % /100 WBC [facility] Platelet mean volume (Bld) [Entitic vol] 10.0 fL 9.0 - 12.7 fL [facility] Platelets (Bld) [#/Vol] 232 10*3/uL [facility] RBC (Bld) [#/Vol] 4.76 10*6/uL 3.90 - 5.20 m/uL [facility] WBC (Bld) [#/Vol] 9.15 10*3/uL [facility] Urinalysis complete panel (U )on 11-15-2023 Bacteria LM.HPF (Urine sed) [#/Area] Negative Negative /HPF [facility] Bilirubin Ql (U) Negative Negative [facility] Clarity (Unsp spec) Clear Clear [facility] Color (U) Yellow Yellow [facility] Epithelial cells LM.HPF (Urine sed) [#/Area] None Seen /HPF [facility] Glucose Test strip (U) [Mass/Vol] Negative Negative [facility] Hemoglobin Ql (U) Negative Negative [facility] Hyaline casts (Urine sed) [#/Area] 0 /[LPF] 0 /LPF [facility] Ketones Ql (U) Negative Negative [facility] Leukocyte esterase Test strip Ql (U) Negative Negative [facility] Nitrite Ql (U) Negative Negative [facility] pH (U) 6.5 [pH] NINF - 8.5 [facility] Protein (U) [Mass/Vol] Negative Negative [facility] RBC LM.HPF (Urine sed) [#/Area] 0-2 /HPF 0-2 /HPF [facility] Specific gravity (U) [Rel density] 1.009 1.005 - 1.030 [facility] Urobilinogen Ql (U) 0.2 EU/dL 0.2-1.0 EU/dL [facility] WBC LM.HPF (Urine sed) [#/Area] 0-5 /HPF 0-5 /HPF [facility] This test was develo ped and its performance characteristics determined by [facility] Laboratory Medicine [place] (RT-[facility]). It has not been cleared or approved by the FDA. RT-[facility] is regulated under CLIA as qualified to perform high-complexity testing. This test is used for clinical purposes. It should not be regarded as investigational or for research. [facility] XR Chest PA and Lateralon IMPRESSION: No acute radiographic abnormality. Transmission Calibration Engineer: [facility] Transcribe Date/Time: Jul 09 2023 3:43P Dictated by : DELIO CALDWELL MD This examination was interpreted and the report reviewed and electronically signed by: DELIO CALDWELL MD on Jul 09 2023 3:43PM [facility] DIVISION OF RADIOLOGY * * *Final Report* [...] the spine. DIVISION OF RADIOLOGY [facility] - 07/09/2023 * * *Final Report* [...] spine. IMPRESSION IMPRESSION: No acute radiographic abnormality. Transmission Calibration Engineer: [facility] Transcribe Date/Time: Jul 09 2023 3:43P Dictated by : DELIO CALDWELL MD This examination was interpreted and the report reviewed and electronically signed by: DELIO CALDWELL MD on Jul 09 2023 3:43PM EST [facility] Radiology Study observation (narrative) [facility] XR Chest PA and LateralOrder ed By: Ccf Provider on 07-09-2023 [facility] Basophil percentageOrdered B y: Kamron Rzea on 05-13-2023 Creatinine [Mass/Vol] 1.1 mg/dL 0.55-1.02 [facility] Laboratory - Chemistry and C hemistry - challengeOrdered By: Kamron Cobb on 05-13-2023 GFR/1.73 sq M.predicted among non-blacks MDRD (S/P/Bld) [Vol rate/Area] 58.0000 mL/min/{1.73_m2} >60 [facility] Glucose Glucometer (BldC) [M ass/Vol]Ordered By: Steve Tirado on 05-03-2023 Glucose [Mass/Vol] 150 mg/dL 74-106 [facility] Comment on above: MANAGEMENT OF PATIEN T CARE PER NURSING PROTOCOL XR Chest PA and Lateralon IMPRESSION: No acute radiographic abnormality. Transmission Calibration Engineer: [facility]SC[facility] Transcribe Date/Time: Apr 21 2023 2:47P Dictated by : KAREL PALACIO MD This examination was interpreted and the report reviewed and electronically signed by: KAREL PALACIO MD on Apr 21 2023 2:47PM [facility] DIVISION OF RADIOLOGY * * *Final Report* [...] Unremarkable. DIVISION OF RADIOLOGY Provider, [facility] - 04/21/2023 * * *Final Report* * [...] Unremarkable. IMPRESSION IMPRESSION: No acute radiographic abnormality. Transmission Calibration Engineer: SARWAT Transcribe Date/Time: Apr 21 2023 2:47P Dictated by : KAREL PALACIO MD This examination was interpreted and the report reviewed and electronically signed by: KAREL PALACIO MD on Apr 21 2023 2:47PM EST [facility] Radiology Study observation (narrative) [facility] XR Chest PA and LateralOrder ed By: Ccf Provider on 04-21-2023 [facility] Glucose Glucometer (BldC) [M ass/Vol]Ordered By: Steve Tirado on 02-15-2023 Glucose [Mass/Vol] 132 mg/dL 74-106 [facility] Comment on above: MANAGEMENT OF PATIEN T CARE PER NURSING PROTOCOL Glucose Glucometer (BldC) [M ass/Vol]Ordered By: Steve Tirado on 01-04-2023 Glucose [Mass/Vol] 111 mg/dL 74-106 [facility] Comment on above: MANAGEMENT OF PATIEN T CARE PER NURSING PROTOCOL HEMOGLOBIN A1C (POC)on 11-23 HbA1c (Bld) [Mass fraction] 6.2 % 4.2 - 5.6 % [facility] CBC W Auto Differential pane l (Bld)on 08-24-2022 Basophils (Bld) [#/Vol] 0.03 10*3/uL <0.11 k/uL [facility] Basophils/100 WBC (Bld) 0.3 % [facility] Differential cell count method Nom (Bld) Auto [facility] Eosinophils (Bld) [#/Vol] 0.09 10*3/uL <0.46 k/uL [facility] Eosinophils/100 WBC (Bld) 0.8 % [facility] Erythrocyte distribution width (RBC) [Ratio] 13.9 % 11.5 - 15.0 % [facility] Hematocrit (Bld) [Volume fraction] 45.9 % 36.0 - 46.0 % [facility] Hemoglobin (Bld) [Mass/Vol] 13.8 g/dL 11.5 - 15.5 g/dL [facility] Immature granulocytes (Bld) [#/Vol] 0.05 10*3/uL <0.10 k/uL [facility] Immature granulocytes/100 WBC (Bld) 0.5 % [facility] Lymphocytes (Bld) [#/Vol] 2.69 10*3/uL 1.00 - 4.00 k/uL [facility] Lymphocytes/100 WBC (Bld) 25.1 % [facility] MCH (RBC) [Entitic mass] 28.9 pg 26.0 - 34.0 pg [facility] MCHC (RBC) [Mass/Vol] 30.1 g/dL Low 30.5 - 36.0 g/dL [facility] MCV (RBC) [Entitic vol] 96.0 fL 80.0 - 100.0 fL [facility] Monocytes (Bld) [#/Vol] 0.67 10*3/uL <0.87 k/uL [facility] Monocytes/100 WBC (Bld) 6.3 % [facility] Neutrophils (Bld) [#/Vol] 7.17 10*3/uL 1.45 - 7.50 k/uL [facility] Neutrophils/100 WBC (Bld) 67.0 % [facility] Nucleated RBC (Bld) [#/Vol] <0.01 k/uL [facility] Nucleated RBC/100 WBC (Bld) [Ratio] 0.0 /100 WBC [facility] Platelet mean volume (Bld) [Entitic vol] 10.1 fL 9.0 - 12.7 fL [facility] Platelets (Bld) [#/Vol] 284 10*3/uL 150 - 400 k/uL [facility] RBC (Bld) [#/Vol] 4.78 10*6/uL 3.90 - 5.20 m/uL [facility] WBC (Bld) [#/Vol] 10.70 10*3/uL 3.70 - 11.00 k/uL [facility] XR Shoulder - left 3 Viewson 08-23-2022 IMPRESSION: Findings are suggestive of mild degenerative changes in the left shoulder. Transmission Calibration Engineer: SARWAT Transcribe Date/Time: Aug 23 2022 4:12P Dictated by : DELIO CALDWELL MD This examination was interpreted and the report reviewed and electronically signed by: DELIO CALDWELL MD on Aug 23 2022 4:13PM [facility] DIVISION OF RADIOLOGY * * *Final Report* [...] swelling. DIVISION OF RADIOLOGY Provider, [facility] - 08/23/2022 * * *Final Report* * * DATE OF EXAM: Aug 20 2022 2:40PM WOX 5252 - XR SHLDR >/=3V AP/REJI AP/OTHR LT / PROCEDURE REASON: M25.512 Pain radiating to left shoulder * * * * Physician Interpretation * * * * EXAM TITLE: XR SHLDR >/=3V AP/REIJ AP/OTHR LT EXAM DATE/TIME: 08/20/2022 2:40 PM [...] mild degenerative changes in the left shoulder. Transmission Calibration Engineer: SARWAT Transcribe Date/Time: Aug 23 2022 4:12P Dictated by : DELIO CALDWELL MD This examination was interpreted and the report reviewed and electronically signed by: DELIO CALDWELL MD on Aug 23 2022 4:13PM EST [facility] XR Shoulder - left 3 ViewsOr dered By: Ccf Provider on 08-23-2022 [facility] XR Shoulder - left 3 Viewson 08-20-2022 Radiology Study observation (narrative) [facility] BHCG (SERUM)on 06-30-2022 B-HCG (SERUM) Negative Normal NEGATIVE [facility] Comment on above: Order Comment: Comme nt: AMBULATORY POD 17 Result Comment: Serum Test is more Sensitive than a Urine Test. Please Note Threshold Values: SERUM - 10mlU/mL URINE - 20mlU/mL Performed By: #### L 200.4092 #### ML - [facility] [address] [place] [address] HCG.beta subunit Qnon 2022 Beta hCG, Serum Negative NEGATIVE [facility] OPERATIVE REPORTon OPERATIVE REPORT [facility] [place] [address] HEALTH INFORMATION MANAGEMENT OPERATIVE REPORT Patient: ARLETHDARREN Garcia JOSEPH N M.D. [id number] F Status: [facility] AMB DATE OF SURGERY: 06/30/2022 SURGEON: Aravind [...] colonoscopy in 10 years. Report#: Dict ID [id number] / Int ID [id number] 07/01/22 0808 _ ARAVIND ROQUE M.D. cc: ARAVIND ROQUE M.D. << Signature on File>> Reported By: ARAVIND ROQUE M.D. Signed By: ARAVIND ROQUE M.D. Tests performed at: [address] [address] Normal [facility] OPERATIVE REPORT [facility] [place] [address] HEALTH INFORMATION MANAGEMENT OPERATIVE REPORT Patient: DARREN REINOSO ARAVIND ROQUE M.D. [id number] F Status: [facility] AMB DATE OF SURGERY: 06/30/2022 SURGEON: Aravind [...] FINDINGS: Normal upper endoscopy. Report#: Dict ID [id number] / Int ID [id number] 07/01/22 0808 _ ARAVIND ROQUE M.D. cc: ARAVIND ROQUE M.D. << Signature on File>> Reported By: ARAVIND ROQUE M.D. Signed By: ARAVIND ROQUE M.D. Tests performed at: [place] [address] [place], [place] [address] Normal [facility] SURGICALon 06-30-2022 SURGICAL Duodenum - BX FINAL DIAGNOSIS: DUODENUM, BIOPSY: FRAGMENTS OF SMALL INTESTINAL MUCOSA, NO PATHOLOGIC DIAGNOSIS, SEE COMMENT. COMMENT: Villous architecture is preserved; no parasites are identified Dictated by: MEY KENNEDY M.D. MICROSCOPIC DESCRIPTION: SLIDE(S) EXAMINED. [facility] 07/02/2022 GROSS DESCRIPTION: Labeled duodenal biopsy. Received in formalin are two fragments of white to pink-newell soft tissues measuring 0.4 x 0.3 x 0.2 cm in aggregate. Specimen is submitted in toto in one cassette. [facility] 07/01/2022 CLINICAL DATA: PROCEDURE: EGD with biopsy, colonoscopy PRE-OP: Epigastric pain, rectal bleeding, diarrhea POST-OP: Normal EGD, normal colon HISTORY: N/A Signed *Electronically Signed* MEY KENNEDY M.D. 07/02/22 1148 Normal [facility] Comment on above: Performed By: #### P -S #### ML - [facility] [place] [id number] [place] [address] XR Knee - right 4 Viewson IMPRESSION: Osteoarthritis as described. Transmission Calibration Engineer: SARWAT Transcribe Date/Time: May 13 2022 1:20P Dictated by : EVITA ELLINGTON MD This examination was interpreted and the report reviewed and electronically signed by: EVITA ELLINGTON MD on May 13 2022 1:22PM [facility] DIVISION OF RADIOLOGY * * *Final Report* [...] Tricompartmental osteophyte production. DIVISION OF RADIOLOGY Provider, [facility] Carissa [facility] - 05/13/2022 * * *Final Report* [...] osteophyte production. IMPRESSION IMPRESSION: Osteoarthritis as described. Transmission Calibration Engineer: SARWAT Transcribe Date/Time: May 13 2022 1:20P Dictated by : EVITA ELLINGTON MD This examination was interpreted and the report reviewed and electronically signed by: EVITA ELLINGTON MD on May 13 2022 1:22PM EST [facility] Radiology Study observation (narrative) [facility] XR Knee - right 4 ViewsOrder ed By: Ccf Provider on 05-13-2022 [facility] UA DIP, URINE (POC)on 2021 BILIRUBIN UA (POCT) Negative Negative [facility] CLARITY UA (POCT) Clear [facility] COLOR UA (POCT) Yellow [facility] GLUCOSE UA (POCT) Negative Negative mg/dL [facility] HEMOGLOBIN/BLOOD UA (POCT) Negative Negative [facility] KETONE UA (POCT) Negative Negative mg/dL [facility] LEUKOCYTES UA (POCT) Negative Negative [facility] NITRITE UA (POCT) Negative Negative [facility] PH UA (POCT) 5.5 4.5 - 8.0 [facility] Protein Ql (U) Negative Negative mg/dL [facility] SPECIFIC GRAVITY UA (POCT) 1.020 1.005 - 1.030 [facility] UROBILINOGEN UA (POCT) 0.2 E.U./dL [facility] E.U./dL [facility] BILIRUBIN UA (POCT) Negative Negative [facility] CLARITY UA (POCT) Clear [facility] COLOR UA (POCT) Yellow [facility] GLUCOSE UA (POCT) Negative Negative mg/dL [facility] HEMOGLOBIN/BLOOD UA (POCT) Negative Negative [facility] KETONE UA (POCT) Negative Negative mg/dL [facility] LEUKOCYTES UA (POCT) Negative Negative [facility] NITRITE UA (POCT) Negative Negative [facility] PH UA (POCT) 5.5 4.5 - 8.0 [facility] Protein Ql (U) Negative Negative mg/dL [facility] SPECIFIC GRAVITY UA (POCT) >=1.030 1.005 - 1.030 [facility] UROBILINOGEN UA (POCT) 0.2 E.U./dL [facility] E.U./dL [facility] No Panel Informationon 03-30 [facility] XR Lumbar spine AP and Later ephraim 02-09-2022 IMPRESSION: Lumbar s pine degenerative changes as described above. Transmission Calibration Engineer: PSCB Transcribe Date/Time: Feb 09 2022 4:00P Dictated by : DELIO CALDWELL MD This examination was interpreted and the report reviewed and electronically signed by: DELIO CALDWELL MD on Feb 09 2022 4:02PM [facility] DIVISION OF RADIOLOGY * * *Final Report* [...] spine are presented. FINDINGS: There are five [facility] lumbar vertebrae. No fracture or subluxations are noted. Right-sided curvature seen on AP view. There appears be L2-3 and L3-4 mild disc space narrowing. There is mild osteophyte formation. Others: There are 2 surgical evaluation clips in the pelvis. DIVISION OF RADIOLOGY Provider, [facility] Carissa felix [place] - 02/09/2022 * * *Final Report* * [...] spine are presented. FINDINGS: There are five [id number] lumbar vertebrae. No fracture or subluxations are noted. Right-sided curvature seen on AP view. There appears be L2-3 and L3-4 mild disc space narrowing. There is mild osteophyte formation. Others: There are 2 surgical evaluation clips in the pelvis. IMPRESSION IMPRESSION: Lumbar spine degenerative changes as described above. Transmission Calibration Engineer: SARWAT Transcribe Date/Time: Feb 09 2022 4:00P Dictated by : DELIO CALDWELL MD This examination was interpreted and the report reviewed and electronically signed by: DELIO CALDWELL MD on Feb 09 2022 4:02PM EST [facility] Radiology Study observation (narrative) [facility] XR Lumbar spine AP and Later alOrdered By: Ccf Provider on 02-09-2022 [facility] LIPID PANEL BASICon 10-10-19 22 Cholesterol [Mass/Vol] 163 mg/dL <200 mg/dL [facility] Cholesterol in HDL [Mass/Vol] 49 mg/dL >39 mg/dL [facility] Cholesterol in LDL [Mass/Vol] 68 mg/dL <100 mg/dL [facility] Cholesterol in LDL/Cholesterol in HDL [Mass ratio] 1.39 {ratio} <2.54 [facility] Cholesterol in VLDL [Mass/Vol] 46 mg/dL High <30 mg/dL [facility] Cholesterol non HDL [Mass/Vol] 114 mg/dL <130 mg/dL [facility] Cholesterol.total/Chol esterol in HDL [Mass ratio] 3.33 {ratio} <5.10 [facility] Fasting Time 3 hrs [facility] Triglyceride [Mass/Vol] 228 mg/dL High <150 mg/dL [facility] ANES POSTPROC EVALon 022 ANES POSTPROC EVAL HNO ID: [id number] Author: Jean Garcia MD Service: Anesthesiology Author Type: Physician Type: Anesthesia Postprocedure Evaluation Filed: 07/23/2021 1:48 PM Note Text: POST ANESTHESIA EVALUATION NOTE : 1980 Procedure Summary Date: 07/23/21 [place] An[place]hesia Start: 1128 Anesthesia Stop: 1220 [...] July 23, 2021 TIME: 1:48 PM CSN: [id number] [facility] ANES PRE-OPon 07-23-2021 ANES PRE-OP HNO ID: [id number] Author: Jean Garcia MD Service: Anesthesiology Author Type: Physician Type: Anesthesia Preprocedure Evaluation Filed: 07/23/2021 10:21 AM Note Text: ANESTHESIOLOGY DAY OF SURGERY NOTE : 1980 Procedure Information Date/Time: 07/23/21 112 Procedure: RELEASE TRIGGER THUMB AND RIGHT MIDDLE FINGER (Right Finger middle) [place] Surgeons: Duran Blunt MD Estimated body [...] July 23, 2021 TIME: 10:20 AM CSN: [id number] [facility] OPERATIVE NOon 07-23-2021 OPERATIVE NO HNO ID: [id number] Author: Duran Blunt MD Service: Orthopaedic Surgery Author Type: Physician Type: Operative Report Filed: 07/23/2021 12:34 PM Note Text: OPERATIVE/PROCEDURE REPORT LOG ID: [id number] Surgery/Procedure Date: 07/23/2021 Incision/Procedure Start Time: 11:50 AM Incision Close/Procedure End Time: 12:12 PM Surgeon(s)/Proceduralist(s) and Ground Operations Supervisor(s): Surgeon(s) and Role: * Duran Blunt MD [...] 23, 2021 TIME: 12:32 PM PAGER/CONTACT #: [facility] XR Chest PA and Lateralon IMPRESSION: Slight prominence of the pulmonary markings. Transmission Calibration Engineer: PSCB Transcribe Date/Time: Apr 24 2021 12:05P Dictated by : DELIO CALDWELL MD This examination was interpreted and the report reviewed and electronically signed by: DELIO CALDWELL MD on Apr 24 2021 12:06PM [facility] DIVISION OF RADIOLOGY * * *Final Report* [...] spine. DIVISION OF RADIOLOGY Provider, [facility] - 04/24/2021 * * *Final Report* [...] IMPRESSION: Slight prominence of the pulmonary markings. Transmission Calibration Engineer: SARWAT Transcribe Date/Time: Apr 24 2021 12:05P Dictated by : DELIO CALDWELL MD This examination was interpreted and the report reviewed and electronically signed by: DELIO CALDWELL MD on Apr 24 2021 12:06PM EST [facility] Radiology Study observation (narrative) [facility] XR Chest PA and LateralOrder ed By: Ccf Provider on 04-24-2021 [facility] XR Chest PA and Lateralon IMPRESSION: No acute radiographic abnormality. Transmission Calibration Engineer: SARWAT Transcribe Date/Time: Mar 12 2021 2:31P Dictated by : KAREL PALACIO MD This examination was interpreted and the report reviewed and electronically signed by: KAREL PALACIO MD on Mar 12 2021 2:32PM [facility] DIVISION OF RADIOLOGY * * *Final Report* [...] Unremarkable. DIVISION OF RADIOLOGY Provider, [facility] - 03/12/2021 * * *Final Report* [...] Unremarkable. IMPRESSION IMPRESSION: No acute radiographic abnormality. Transmission Calibration Engineer: SARWAT Transcribe Date/Time: Mar 12 2021 2:31P Dictated by : KAREL PALACIO MD This examination was interpreted and the report reviewed and electronically signed by: KAREL PALACIO MD on Mar 12 2021 2:32PM EST [facility] Radiology Study observation (narrative) [facility] XR Chest PA and LateralOrder ed By: Ccf Provider on 03-12-2021 [facility] XR Chest PA and Lateralon IMPRESSION: No acute radiographic abnormality. Transmission Calibration Engineer: PSCB Transcribe Date/Time: Jan 24 2021 4:10P [...] soft tissues: Unremarkable. DIVISION OF RADIOLOGY Provider, [facility] Carissa Bronson [facility] - 01/24/2021 * * *Final Report* [...] Unremarkable. IMPRESSION IMPRESSION: No acute radiographic abnormality. Transmission Calibration Engineer: SARWAT Transcribe Date/Time: Jan 24 2021 4:10P Dictated by : KAREL PALACIO MD This examination was interpreted and the report reviewed and electronically signed by: KAREL PALACIO MD on Jan 24 2021 4:11PM EST [facility] Radiology Study observation (narrative) [facility] XR Chest PA and LateralOrder ed By: Ccf Provider on 01-24-2021 [facility] XR Chest PA and Lateralon IMPRESSION: Stable exam without acute findings. Transmission Calibration Engineer: SARWAT Transcribe Date/Time: Nov 12 2020 11:27A Dictated by : DELIO CALDWELL MD This examination was interpreted and the report reviewed and electronically signed by: DELIO CALDWELL MD on Nov 12 2020 11:28AM [facility] DIVISION OF RADIOLOGY * * *Final Report* [...] IMPRESSION IMPRESSION: Stable exam without acute findings. Transmission Calibration Engineer: PSCB Transcribe Date/Time: Nov 12 2020 11:27A Dictated by : DELIO CALDWELL MD This examination was interpreted and the report reviewed and electronically signed by: DELIO CALDWELL MD on Nov 12 2020 11:28AM EST [facility] Radiology Study observation (narrative) [facility] XR Chest PA and LateralOrder ed By: Ccf Provider on 11-12-2020 [facility] Vital Signs Date Time Vital Sign Value Performing Clinician Facility 12-25-2024 14:59-0400 Body temperature 98.1 [degF] Caryn Older ADMINISTRATOR HEALTH CARE FACILITY.PRESALES CONSULTANT Work Phone: [facility] 12-25-2024 14:59-0400 Diastolic blood pressure 78 mm[Hg] Caryn Older ADMINISTRATOR HEALTH CARE FACILITY.PRESALES CONSULTANT Work Phone: [facility] 12-25-2024 14:59-0400 Heart rate 102 /min Caryn Older ADMINISTRATOR HEALTH CARE FACILITY.PRESALES CONSULTANT Work Phone: [facility] 12-25-2024 14:59-0400 Respiratory rate 16 /min Caryn Older ADMINISTRATOR HEALTH CARE FACILITY.PRESALES CONSULTANT Work Phone: [facility] 12-25-2024 14:59-0400 SaO2% (BldA) [Mass fraction] 96 % Caryn Older ADMINISTRATOR HEALTH CARE FACILITY.PRESALES CONSULTANT Work Phone: [facility] 12-25-2024 14:59-0400 Systolic blood pressure 130 mm[Hg] Caryn Older ADMINISTRATOR HEALTH CARE FACILITY.PRESALES CONSULTANT Work Phone: [facility] 12-25-2024 02:12-0400 Body temperature 99.1 [degF] Dr. Babar Phillip MD Work Phone: [facility] 12-25-2024 02:12-0400 Diastolic blood pressure 63 mm[Hg] Dr. Babar Phillip MD Work Phone: [phone] [place] [address] 12-25-2024 02:12-0400 Heart rate 91 /min Dr. Babar Phillip MD Work Phone: [facility] 12-25-2024 02:12-0400 Respiratory rate 16 /min Dr. Babar Phillip MD Work Phone: [facility] 12-25-2024 02:12-0400 SaO2% (BldA) [Mass fraction] 99 % Dr. Babar Phillip MD Work Phone: [facility] 12-25-2024 02:12-0400 Systolic blood pressure 133 mm[Hg] Dr. Babar Phillip MD Work Phone: [phone] [place] [address] 12-24-2024 22:17-0400 Body height 160.[address] Babar Phillip MD Work Phone: [facility] 12-24-2024 22:17-0400 Body mass index (BMI) [Ratio] 56.3 kg/m2 Dr. Babar Phillip MD Work Phone: [facility] 12-24-2024 22:17-0400 Body weight 144.[address] Babar Phillip MD Work Phone: [facility] 12-24-2024 14:35-0400 Body mass index (BMI) [Ratio] 57.74 kg/m2 Yolanda Swank ADMINISTRATOR HEALTH CARE FACILITY.PRESALES CONSULTANT Work Phone: [facility] 12-24-2024 14:35-0400 Body temperature 98.4 [degF] Yolanda Swank ADMINISTRATOR HEALTH CARE FACILITY.PRESALES CONSULTANT Work Phone: [facility] 12-24-2024 14:35-0400 Body weight 143.2 kg Yolanda Swank ADMINISTRATOR HEALTH CARE FACILITY.PRESALES CONSULTANT Work Phone: [facility] 12-24-2024 14:35-0400 Diastolic blood pressure 82 mm[Hg] Yolanda Swank ADMINISTRATOR HEALTH CARE FACILITY.PRESALES CONSULTANT Work Phone: [facility] 12-24-2024 14:35-0400 Heart rate 94 /min Yolanda Swank ADMINISTRATOR HEALTH CARE FACILITY.PRESALES CONSULTANT Work Phone: [facility] 12-24-2024 14:35-0400 Respiratory rate 18 /min Yolanda Swank ADMINISTRATOR HEALTH CARE FACILITY.PRESALES CONSULTANT Work Phone: [facility] 12-24-2024 14:35-0400 SaO2% (BldA) [Mass fraction] 97 % Yolanda Swank ADMINISTRATOR HEALTH CARE FACILITY.PRESALES CONSULTANT Work Phone: [facility] 12-24-2024 14:35-0400 Systolic blood pressure 130 mm[Hg] Yolanda Swank ADMINISTRATOR HEALTH CARE FACILITY.PRESALES CONSULTANT Work Phone: [facility] 11-20-2024 07:26-0400 Body mass index (BMI) [Ratio] 57.8 kg/m2 Caryn Sebastián ADMINISTRATOR HEALTH CARE FACILITY.PRESALES CONSULTANT Work Phone: [facility] 11-20-2024 07:26-0400 Body temperature 97 [degF] Caryn Older ADMINISTRATOR HEALTH CARE FACILITY.PRESALES CONSULTANT Work Phone: [facility] 11-20-2024 07:26-0400 Body weight 143.34 kg Caryn Older ADMINISTRATOR HEALTH CARE FACILITY.PRESALES CONSULTANT Work Phone: [facility] 11-20-2024 07:26-0400 Diastolic blood pressure 82 mm[Hg] Caryn Older ADMINISTRATOR HEALTH CARE FACILITY.PRESALES CONSULTANT Work Phone: [facility] 11-20-2024 07:26-0400 Heart rate 87 /min Caryn Older ADMINISTRATOR HEALTH CARE FACILITY.PRESALES CONSULTANT Work Phone: [facility] 11-20-2024 07:26-0400 Respiratory rate 16 /min Caryn Older ADMINISTRATOR HEALTH CARE FACILITY.PRESALES CONSULTANT Work Phone: [facility] 11-20-2024 07:26-0400 SaO2% (BldA) [Mass fraction] 97 % Caryn Older ADMINISTRATOR HEALTH CARE FACILITY.PRESALES CONSULTANT Work Phone: [facility] 11-20-2024 07:26-0400 Systolic blood pressure 122 mm[Hg] Caryn Older ADMINISTRATOR HEALTH CARE FACILITY.PRESALES CONSULTANT Work Phone: [facility] 10-20-2024 11:22-0400 Body mass index (BMI) [Ratio] 58.53 kg/m2 Caryn Older ADMINISTRATOR HEALTH CARE FACILITY.PRESALES CONSULTANT Work Phone: [facility] 10-20-2024 11:22-0400 Body weight 145.15 kg Caryn Older ADMINISTRATOR HEALTH CARE FACILITY.PRESALES CONSULTANT Work Phone: [facility] 10-20-2024 11:22-0400 Diastolic blood pressure 78 mm[Hg] Caryn Older ADMINISTRATOR HEALTH CARE FACILITY.PRESALES CONSULTANT Work Phone: [facility] 10-20-2024 11:22-0400 Heart rate 78 /min Caryn Older ADMINISTRATOR HEALTH CARE FACILITY.PRESALES CONSULTANT Work Phone: [facility] 10-20-2024 11:22-0400 Respiratory rate 16 /min Caryn Older ADMINISTRATOR HEALTH CARE FACILITY.PRESALES CONSULTANT Work Phone: [facility] 10-20-2024 11:22-0400 SaO2% (BldA) [Mass fraction] 97 % Caryn Older ADMINISTRATOR HEALTH CARE FACILITY.PRESALES CONSULTANT Work Phone: [facility] 10-20-2024 11:22-0400 Systolic blood pressure 126 mm[Hg] Caryn Older ADMINISTRATOR HEALTH CARE FACILITY.PRESALES CONSULTANT Work Phone: [facility] 10-17-2024 13:34-0400 Body mass index (BMI) [Ratio] 58.35 kg/m2 Charis Click ADMINISTRATOR HEALTH CARE FACILITY.PRESALES CONSULTANT Work Phone: [facility] 10-17-2024 13:34-0400 Body weight 144.7 kg Charis Click ADMINISTRATOR HEALTH CARE FACILITY.PRESALES CONSULTANT Work Phone: [facility] 10-17-2024 13:34-0400 Diastolic blood pressure 72 mm[Hg] Charis Click ADMINISTRATOR HEALTH CARE FACILITY.PRESALES CONSULTANT Work Phone: [facility] 10-17-2024 13:34-0400 Heart rate 82 /min Charis Click ADMINISTRATOR HEALTH CARE FACILITY.PRESALES CONSULTANT Work Phone: [facility] 10-17-2024 13:34-0400 Respiratory rate 17 /min Charis Click ADMINISTRATOR HEALTH CARE FACILITY.PRESALES CONSULTANT Work Phone: [facility] 10-17-2024 13:34-0400 SaO2% (BldA) [Mass fraction] 96 % Charis Click ADMINISTRATOR HEALTH CARE FACILITY.PRESALES CONSULTANT Work Phone: [facility] 10-17-2024 13:34-0400 Systolic blood pressure 122 mm[Hg] Charis Click ADMINISTRATOR HEALTH CARE FACILITY.PRESALES CONSULTANT Work Phone: [facility] 10-11-2024 11:03-0400 Body mass index (BMI) [Ratio] 58.35 kg/m2 Caryn Older ADMINISTRATOR HEALTH CARE FACILITY.PRESALES CONSULTANT Work Phone: [facility] 10-11-2024 11:03-0400 Body weight 144.7 kg Caryn Older ADMINISTRATOR HEALTH CARE FACILITY.PRESALES CONSULTANT Work Phone: [facility] 10-11-2024 11:03-0400 Diastolic blood pressure 78 mm[Hg] Caryn Older ADMINISTRATOR HEALTH CARE FACILITY.PRESALES CONSULTANT Work Phone: [facility] 10-11-2024 11:03-0400 Heart rate 78 /min Caryn Older ADMINISTRATOR HEALTH CARE FACILITY.PRESALES CONSULTANT Work Phone: [facility] 10-11-2024 11:03-0400 Respiratory rate 16 /min Caryn Older ADMINISTRATOR HEALTH CARE FACILITY.PRESALES CONSULTANT Work Phone: [facility] 10-11-2024 11:03-0400 SaO2% (BldA) [Mass fraction] 92 % Caryn Older ADMINISTRATOR HEALTH CARE FACILITY.PRESALES CONSULTANT Work Phone: [facility] 10-11-2024 11:03-0400 Systolic blood pressure 128 mm[Hg] Caryn Older ADMINISTRATOR HEALTH CARE FACILITY.PRESALES CONSULTANT Work Phone: [facility] 07-27-2024 13:02-0400 Body mass index (BMI) [Ratio] 57.25 kg/m2 Caryn Older ADMINISTRATOR HEALTH CARE FACILITY.PRESALES CONSULTANT Work Phone: [facility] 07-27-2024 13:02-0400 Body weight 141.98 kg Caryn Older ADMINISTRATOR HEALTH CARE FACILITY.PRESALES CONSULTANT Work Phone: [facility] 07-27-2024 13:02-0400 Diastolic blood pressure 78 mm[Hg] Caryn Older ADMINISTRATOR HEALTH CARE FACILITY.PRESALES CONSULTANT Work Phone: [facility] 07-27-2024 13:02-0400 Heart rate 90 /min Caryn Older ADMINISTRATOR HEALTH CARE FACILITY.PRESALES CONSULTANT Work Phone: [facility] 07-27-2024 13:02-0400 Respiratory rate 16 /min Caryn Older ADMINISTRATOR HEALTH CARE FACILITY.PRESALES CONSULTANT Work Phone: [facility] 07-27-2024 13:02-0400 SaO2% (BldA) [Mass fraction] 97 % Caryn Older ADMINISTRATOR HEALTH CARE FACILITY.PRESALES CONSULTANT Work Phone: [facility] 07-27-2024 13:02-0400 Systolic blood pressure 122 mm[Hg] Caryn Older ADMINISTRATOR HEALTH CARE FACILITY.PRESALES CONSULTANT Work Phone: [facility] 07-13-2024 16:09-0500 Body mass index (BMI) [Ratio] 58.06 kg/m2 Janie Vinson ADMINISTRATOR HEALTH CARE FACILITY.PRESALES CONSULTANT Work Phone: [facility] 07-13-2024 16:09-0500 Body temperature 98.49 [degF] Janie Vinson ADMINISTRATOR HEALTH CARE FACILITY.PRESALES CONSULTANT Work Phone: [facility] 07-13-2024 16:09-0500 Body weight 144 kg Janie Vinson ADMINISTRATOR HEALTH CARE FACILITY.PRESALES CONSULTANT Work Phone: [facility] 07-13-2024 16:09-0500 Diastolic blood pressure 87 mm[Hg] Janie Vinson ADMINISTRATOR HEALTH CARE FACILITY.PRESALES CONSULTANT Work Phone: [facility] 07-13-2024 16:09-0500 Heart rate 88 /min Janie Vinson ADMINISTRATOR HEALTH CARE FACILITY.PRESALES CONSULTANT Work Phone: [facility] 07-13-2024 16:09-0500 Respiratory rate 22 /min Janie Vinson ADMINISTRATOR HEALTH CARE FACILITY.PRESALES CONSULTANT Work Phone: [facility] 07-13-2024 16:09-0500 SaO2% (BldA) [Mass fraction] 97 % Janie Vinson ADMINISTRATOR HEALTH CARE FACILITY.PRESALES CONSULTANT Work Phone: [facility] 07-13-2024 16:09-0500 Systolic blood pressure 146 mm[Hg] Janie Vinson ADMINISTRATOR HEALTH CARE FACILITY.PRESALES CONSULTANT Work Phone: [facility] 06-30-2024 13:03-0500 Body mass index (BMI) [Ratio] 57.61 kg/m2 Caryn Older ADMINISTRATOR HEALTH CARE FACILITY.PRESALES CONSULTANT Work Phone: [facility] 06-30-2024 13:03-0500 Body weight 142.88 kg Caryn Older ADMINISTRATOR HEALTH CARE FACILITY.PRESALES CONSULTANT Work Phone: [facility] 06-30-2024 13:03-0500 Diastolic blood pressure 72 mm[Hg] Caryn Older ADMINISTRATOR HEALTH CARE FACILITY.PRESALES CONSULTANT Work Phone: [facility] 06-30-2024 13:03-0500 Heart rate 82 /min Caryn Older ADMINISTRATOR HEALTH CARE FACILITY.PRESALES CONSULTANT Work Phone: [facility] 06-30-2024 13:03-0500 Respiratory rate 16 /min Caryn Older ADMINISTRATOR HEALTH CARE FACILITY.PRESALES CONSULTANT Work Phone: [facility] 06-30-2024 13:03-0500 SaO2% (BldA) [Mass fraction] 99 % Caryn Older ADMINISTRATOR HEALTH CARE FACILITY.PRESALES CONSULTANT Work Phone: [facility] 06-30-2024 13:03-0500 Systolic blood pressure 128 mm[Hg] Caryn Older ADMINISTRATOR HEALTH CARE FACILITY.PRESALES CONSULTANT Work Phone: [facility] 06-16-2024 13:19-0500 Body height 157.5 cm Elle Boone MD Work Phone: [facility] 06-16-2024 13:19-0500 Body mass index (BMI) [Ratio] 57.43 kg/m2 Elle Boone MD Work Phone: [facility] 06-16-2024 13:19-0500 Body weight 142.43 kg Elle Boone MD Work Phone: [facility] 06-16-2024 13:19-0500 Diastolic blood pressure 90 mm[Hg] Elle Boone MD Work Phone: [facility] 06-16-2024 13:19-0500 Heart rate 82 /min Elle Boone MD Work Phone: [facility] 06-16-2024 13:19-0500 Respiratory rate 14 /min Elle Boone MD Work Phone: [facility] 06-16-2024 13:19-0500 SaO2% (BldA) [Mass fraction] 98 % Elle Boone MD Work Phone: [facility] 06-16-2024 13:19-0500 Systolic blood pressure 146 mm[Hg] Elle Boone MD Work Phone: [facility] 06-16-2024 13:05-0500 Body height 157.5 cm Pulm Wstr Work Phone: [facility] 06-16-2024 13:05-0500 Body mass index (BMI) [Ratio] 57.43 kg/m2 Pulm Wstr Work Phone: [facility] 06-16-2024 13:05-0500 Body weight 142.43 kg Pulm Wstr Work Phone: [facility] 06-16-2024 13:05-0500 Heart rate 83 /min Pulm Wstr Work Phone: [facility] 06-16-2024 13:05-0500 Respiratory rate 14 /min Pulm Wstr Work Phone: [facility] 06-16-2024 13:05-0500 SaO2% (BldA) [Mass fraction] 98 % Pulm Wstr Work Phone: [facility] 04-28-2024 11:20-0500 Body mass index (BMI) [Ratio] 57.04 kg/m2 Caryn Older ADMINISTRATOR HEALTH CARE FACILITY.PRESALES CONSULTANT Work Phone: [facility] 04-28-2024 11:20-0500 Body weight 146.06 kg Caryn Older ADMINISTRATOR HEALTH CARE FACILITY.PRESALES CONSULTANT Work Phone: [facility] 04-28-2024 11:20-0500 Diastolic blood pressure 80 mm[Hg] Caryn Older ADMINISTRATOR HEALTH CARE FACILITY.PRESALES CONSULTANT Work Phone: [facility] 04-28-2024 11:20-0500 Heart rate 88 /min Caryn Older ADMINISTRATOR HEALTH CARE FACILITY.PRESALES CONSULTANT Work Phone: [facility] 04-28-2024 11:20-0500 Respiratory rate 16 /min Caryn Older ADMINISTRATOR HEALTH CARE FACILITY.PRESALES CONSULTANT Work Phone: [facility] 04-28-2024 11:20-0500 SaO2% (BldA) [Mass fraction] 97 % Caryn Older ADMINISTRATOR HEALTH CARE FACILITY.PRESALES CONSULTANT Work Phone: [facility] 04-28-2024 11:20-0500 Systolic blood pressure 128 mm[Hg] Caryn Older ADMINISTRATOR HEALTH CARE FACILITY.PRESALES CONSULTANT Work Phone: [facility] 04-02-2024 13:33-0500 Body mass index (BMI) [Ratio] 57.39 kg/m2 Victoria Nguyen ADMINISTRATOR HEALTH CARE FACILITY.PRESALES CONSULTANT Work Phone: [facility] 04-02-2024 13:33-0500 Body temperature 97.5 [degF] Victoria Praisler-Wood ADMINISTRATOR HEALTH CARE FACILITY.PRESALES CONSULTANT Work Phone: [facility] 04-02-2024 13:33-0500 Body weight 146.97 kg Victoria Praisler-Wood ADMINISTRATOR HEALTH CARE FACILITY.PRESALES CONSULTANT Work Phone: [facility] 04-02-2024 13:33-0500 Diastolic blood pressure 87 mm[Hg] Victoria Praisler-Wood ADMINISTRATOR HEALTH CARE FACILITY.PRESALES CONSULTANT Work Phone: [facility] 04-02-2024 13:33-0500 Heart rate 93 /min Victoria Praisler-Wood ADMINISTRATOR HEALTH CARE FACILITY.PRESALES CONSULTANT Work Phone: [facility] 04-02-2024 13:33-0500 Respiratory rate 16 /min Victoria Praisler-Wood ADMINISTRATOR HEALTH CARE FACILITY.PRESALES CONSULTANT Work Phone: [facility] 04-02-2024 13:33-0500 Systolic blood pressure 146 mm[Hg] Victoria Praisler-Wood ADMINISTRATOR HEALTH CARE FACILITY.PRESALES CONSULTANT Work Phone: [facility] 04-01-2024 15:33-0500 Body mass index (BMI) [Ratio] 57.52 kg/m2 Victoria Praisler-Wood ADMINISTRATOR HEALTH CARE FACILITY.PRESALES CONSULTANT Work Phone: [facility] 04-01-2024 15:33-0500 Body temperature 98.4 [degF] Victoria Praisler-Wood ADMINISTRATOR HEALTH CARE FACILITY.PRESALES CONSULTANT Work Phone: [facility] 04-01-2024 15:33-0500 Body weight 147.3 kg Victoria Praisler-Wood ADMINISTRATOR HEALTH CARE FACILITY.PRESALES CONSULTANT Work Phone: [facility] 04-01-2024 15:33-0500 Diastolic blood pressure 86 mm[Hg] Victoria Praisler-Wood ADMINISTRATOR HEALTH CARE FACILITY.PRESALES CONSULTANT Work Phone: [facility] 04-01-2024 15:33-0500 Heart rate 88 /min Victoria Praisler-Wood ADMINISTRATOR HEALTH CARE FACILITY.PRESALES CONSULTANT Work Phone: [facility] 04-01-2024 15:33-0500 Respiratory rate 20 /min Victoria Praisler-Wood ADMINISTRATOR HEALTH CARE FACILITY.PRESALES CONSULTANT Work Phone: [facility] 04-01-2024 15:33-0500 SaO2% (BldA) [Mass fraction] 97 % Victoria Nguyen APRN.PRESALES CONSULTANT Work Phone: [facility] 04-01-2024 15:33-0500 Systolic blood pressure 128 mm[Hg] Victoria Nguyen APRN.PRESALES CONSULTANT Work Phone: [facility] 03-31-2024 14:25-0500 Body mass index (BMI) [Ratio] 57.49 kg/m2 Janie Vinson APRN.PRESALES CONSULTANT Work Phone: [facility] 03-31-2024 14:25-0500 Body temperature 97.59 [degF] Janie Vinson APRN.PRESALES CONSULTANT Work Phone: [facility] 03-31-2024 14:25-0500 Body weight 147.2 kg Janie Vinson APRN.PRESALES CONSULTANT Work Phone: [facility] 03-31-2024 14:25-0500 Diastolic blood pressure 80 mm[Hg] Janie Vinson APRN.PRESALES CONSULTANT Work Phone: [facility] 03-31-2024 14:25-0500 Heart rate 79 /min Janie Vinson APRN.PRESALES CONSULTANT Work Phone: [facility] 03-31-2024 14:25-0500 Respiratory rate 22 /min Janie Vinson APRN.PRESALES CONSULTANT Work Phone: [facility] 03-31-2024 14:25-0500 SaO2% (BldA) [Mass fraction] 93 % Janie Vinson APRN.PRESALES CONSULTANT Work Phone: [facility] 03-31-2024 14:25-0500 Systolic blood pressure 138 mm[Hg] Janie Vinson APRN.PRESALES CONSULTANT Work Phone: [facility] 03-17-2024 08:12-0400 Body mass index (BMI) [Ratio] 57.22 kg/m2 Caryn Lowery APRN.PRESALES CONSULTANT Work Phone: [facility] 03-17-2024 08:12-0400 Body weight 146.51 kg Caryn Older ADMINISTRATOR HEALTH CARE FACILITY.PRESALES CONSULTANT Work Phone: [facility] 03-17-2024 08:12-0400 Diastolic blood pressure 76 mm[Hg] Caryn Older ADMINISTRATOR HEALTH CARE FACILITY.PRESALES CONSULTANT Work Phone: [facility] 03-17-2024 08:12-0400 Heart rate 95 /min Caryn Older ADMINISTRATOR HEALTH CARE FACILITY.PRESALES CONSULTANT Work Phone: [facility] 03-17-2024 08:12-0400 Respiratory rate 16 /min Caryn Older ADMINISTRATOR HEALTH CARE FACILITY.PRESALES CONSULTANT Work Phone: [facility] 03-17-2024 08:12-0400 SaO2% (BldA) [Mass fraction] 95 % Caryn Older ADMINISTRATOR HEALTH CARE FACILITY.PRESALES CONSULTANT Work Phone: [facility] 03-17-2024 08:12-0400 Systolic blood pressure 130 mm[Hg] Caryn Older ADMINISTRATOR HEALTH CARE FACILITY.PRESALES CONSULTANT Work Phone: [facility] 02-17-2024 13:39-0400 Body mass index (BMI) [Ratio] 57.39 kg/m2 Caryn Older ADMINISTRATOR HEALTH CARE FACILITY.PRESALES CONSULTANT Work Phone: [facility] 02-17-2024 13:39-0400 Body weight 146.97 kg Caryn Older ADMINISTRATOR HEALTH CARE FACILITY.PRESALES CONSULTANT Work Phone: [facility] 02-17-2024 13:39-0400 Diastolic blood pressure 80 mm[Hg] Caryn Older ADMINISTRATOR HEALTH CARE FACILITY.PRESALES CONSULTANT Work Phone: [facility] 02-17-2024 13:39-0400 Heart rate 88 /min Caryn Older ADMINISTRATOR HEALTH CARE FACILITY.PRESALES CONSULTANT Work Phone: [facility] 02-17-2024 13:39-0400 Respiratory rate 16 /min Caryn Older ADMINISTRATOR HEALTH CARE FACILITY.PRESALES CONSULTANT Work Phone: [facility] 02-17-2024 13:39-0400 SaO2% (BldA) [Mass fraction] 97 % Caryn Older ADMINISTRATOR HEALTH CARE FACILITY.PRESALES CONSULTANT Work Phone: [facility] 02-17-2024 13:39-0400 Systolic blood pressure 128 mm[Hg] Caryn Older ADMINISTRATOR HEALTH CARE FACILITY.PRESALES CONSULTANT Work Phone: [facility] 02-02-2024 12:15-0400 Body mass index (BMI) [Ratio] 57.04 kg/m2 Caryn Older ADMINISTRATOR HEALTH CARE FACILITY.PRESALES CONSULTANT Work Phone: [facility] 02-02-2024 12:15-0400 Body temperature 97.59 [degF] Caryn Older ADMINISTRATOR HEALTH CARE FACILITY.PRESALES CONSULTANT Work Phone: [facility] 02-02-2024 12:15-0400 Body weight 146.06 kg Caryn Older ADMINISTRATOR HEALTH CARE FACILITY.PRESALES CONSULTANT Work Phone: [facility] 02-02-2024 12:15-0400 Diastolic blood pressure 78 mm[Hg] Caryn Older ADMINISTRATOR HEALTH CARE FACILITY.PRESALES CONSULTANT Work Phone: [facility] 02-02-2024 12:15-0400 Heart rate 74 /min Caryn Older ADMINISTRATOR HEALTH CARE FACILITY.PRESALES CONSULTANT Work Phone: [facility] 02-02-2024 12:15-0400 Respiratory rate 24 /min Caryn Older ADMINISTRATOR HEALTH CARE FACILITY.PRESALES CONSULTANT Work Phone: [facility] 02-02-2024 12:15-0400 SaO2% (BldA) [Mass fraction] 95 % Caryn Older ADMINISTRATOR HEALTH CARE FACILITY.PRESALES CONSULTANT Work Phone: [facility] 02-02-2024 12:15-0400 Systolic blood pressure 126 mm[Hg] Caryn Older ADMINISTRATOR HEALTH CARE FACILITY.PRESALES CONSULTANT Work Phone: [facility] 01-21-2024 10:58-0400 Body mass index (BMI) [Ratio] 57.1 kg/m2 Caryn Older ADMINISTRATOR HEALTH CARE FACILITY.PRESALES CONSULTANT Work Phone: [facility] 01-21-2024 10:58-0400 Body temperature 97.9 [degF] Caryn Older ADMINISTRATOR HEALTH CARE FACILITY.PRESALES CONSULTANT Work Phone: [facility] 01-21-2024 10:58-0400 Body weight 146.2 kg Caryn Older ADMINISTRATOR HEALTH CARE FACILITY.PRESALES CONSULTANT Work Phone: [facility] 01-21-2024 10:58-0400 Diastolic blood pressure 84 mm[Hg] Caryn Older ADMINISTRATOR HEALTH CARE FACILITY.PRESALES CONSULTANT Work Phone: [facility] 01-21-2024 10:58-0400 Heart rate 102 /min Caryn Older ADMINISTRATOR HEALTH CARE FACILITY.PRESALES CONSULTANT Work Phone: [facility] 01-21-2024 10:58-0400 Respiratory rate 16 /min Caryn Older ADMINISTRATOR HEALTH CARE FACILITY.PRESALES CONSULTANT Work Phone: [facility] 01-21-2024 10:58-0400 SaO2% (BldA) [Mass fraction] 92 % Caryn Older ADMINISTRATOR HEALTH CARE FACILITY.PRESALES CONSULTANT Work Phone: [facility] 01-21-2024 10:58-0400 Systolic blood pressure 136 mm[Hg] Caryn Older ADMINISTRATOR HEALTH CARE FACILITY.PRESALES CONSULTANT Work Phone: [facility] 01-13-2024 11:13-0400 Body mass index (BMI) [Ratio] 56.15 kg/m2 Caryn Older ADMINISTRATOR HEALTH CARE FACILITY.PRESALES CONSULTANT Work Phone: [facility] 01-13-2024 11:13-0400 Body weight 143.79 kg Caryn Older ADMINISTRATOR HEALTH CARE FACILITY.PRESALES CONSULTANT Work Phone: [facility] 01-13-2024 11:13-0400 Diastolic blood pressure 88 mm[Hg] Caryn Older ADMINISTRATOR HEALTH CARE FACILITY.PRESALES CONSULTANT Work Phone: [facility] 01-13-2024 11:13-0400 Heart rate 92 /min Caryn Older ADMINISTRATOR HEALTH CARE FACILITY.PRESALES CONSULTANT Work Phone: [facility] 01-13-2024 11:13-0400 Respiratory rate 16 /min Caryn Older ADMINISTRATOR HEALTH CARE FACILITY.PRESALES CONSULTANT Work Phone: [facility] 01-13-2024 11:13-0400 SaO2% (BldA) [Mass fraction] 93 % Caryn Older ADMINISTRATOR HEALTH CARE FACILITY.PRESALES CONSULTANT Work Phone: [facility] 01-13-2024 11:13-0400 Systolic blood pressure 142 mm[Hg] Caryn Older ADMINISTRATOR HEALTH CARE FACILITY.PRESALES CONSULTANT Work Phone: [facility] 01-04-2024 19:01-0400 Diastolic Blood Pressure Non-Invasive 77 mm[Hg] CHELSIE MORALES MD [facility] 01-04-2024 19:01-0400 Heart rate 88 /min CHELSIE MORALES MD [facility] 01-04-2024 19:01-0400 Respiratory rate 20 /min CHELSIE MORALES MD [facility] 01-04-2024 19:01-0400 Systolic Blood Pressure Non-Invasive 132 mm[Hg] CHELSIE MORALES MD [facility] 01-04-2024 17:39-0400 Diastolic Blood Pressure Non-Invasive 89 mm[Hg] CHELSIE MORALES MD [facility] 01-04-2024 17:39-0400 Heart rate 88 /min CHELSIE MORALES MD [facility] 01-04-2024 17:39-0400 Systolic Blood Pressure Non-Invasive 153 mm[Hg] CHELSIE MORALES MD [facility] 01-04-2024 16:04-0400 Body temperature 97.34 [degF] CHELSIE MORALES MD [facility] 01-04-2024 16:04-0400 Body weight 143.7 kg CHELSIE MORALES MD [facility] 01-04-2024 16:04-0400 Diastolic Blood Pressure Non-Invasive 95 mm[Hg] CHELSIE MORALES MD [facility] 01-04-2024 16:04-0400 Heart rate 91 /min CHELSIE MORALES MD [facility] 01-04-2024 16:04-0400 Respiratory rate 20 /min CHELSIE MORALES MD [facility] 01-04-2024 16:04-0400 Systolic Blood Pressure Non-Invasive 152 mm[Hg] CHELSIE MORALES MD [facility] 01-03-2024 13:00-0400 Body mass index (BMI) [Ratio] 55.98 kg/m2 Caryn Older ADMINISTRATOR HEALTH CARE FACILITY.PRESALES CONSULTANT Work Phone: [facility] 01-03-2024 13:00-0400 Body weight 143.34 kg ADMINISTRATOR HEALTH CARE FACILITY.PRESALES CONSULTANT Work Phone: [facility] 01-03-2024 13:00-0400 Diastolic blood pressure 80 mm[Hg] ADMINISTRATOR HEALTH CARE FACILITY.PRESALES CONSULTANT Work Phone: [facility] 01-03-2024 13:00-0400 Heart rate 80 /min ADMINISTRATOR HEALTH CARE FACILITY.PRESALES CONSULTANT Work Phone: [facility] 01-03-2024 13:00-0400 Respiratory rate 16 /min ADMINISTRATOR HEALTH CARE FACILITY.PRESALES CONSULTANT Work Phone: [facility] 01-03-2024 13:00-0400 SaO2% (BldA) [Mass fraction] 96 % ADMINISTRATOR HEALTH CARE FACILITY.PRESALES CONSULTANT Work Phone: [facility] 01-03-2024 13:00-0400 Systolic blood pressure 132 mm[Hg] ADMINISTRATOR HEALTH CARE FACILITY.PRESALES CONSULTANT Work Phone: [facility] 12-06-2023 14:58-0400 Body mass index (BMI) [Ratio] 56.04 kg/m2 Steve Ramirez ADMINISTRATOR HEALTH CARE FACILITY.PRESALES CONSULTANT Work Phone: [facility] 12-06-2023 14:58-0400 Body temperature 97.81 [degF] Steve Ramirez ADMINISTRATOR HEALTH CARE FACILITY.PRESALES CONSULTANT Work Phone: [facility] 12-06-2023 14:58-0400 Body weight 143.5 kg [facility]ARE FACILITY.PRESALES CONSULTANT Work Phone: [facility] 12-06-2023 14:58-0400 Diastolic blood pressure 90 mm[Hg] [facility] ADMINISTRATOR HEALTH CARE FACILITY.PRESALES CONSULTANT Work Phone: [facility] 12-06-2023 14:58-0400 Heart rate 93 /min [facility] AD[facility]IST[facility]ARE FACILITY.PRESALES CONSULTANT Work Phone: [facility] 12-06-2023 14:58-0400 Respiratory rate 20 /min [facility] ADMINISTRATOR [facility] CARE FACILITY.PRESALES CONSULTANT Work Phone: [facility] 12-06-2023 14:58-0400 SaO2% (BldA) [Mass fraction] 96 % [facility] ADMINISTRATOR HE[facility] CARE FACILITY.PRESALES CONSULTANT Work Phone: [facility] 12-06-2023 14:58-0400 Systolic blood pressure 148 mm[Hg] [facility] ADMINISTRATOR [facility] CARE FACILITY.PRESALES CONSULTANT Work Phone: [facility] 12-03-2023 13:35-0400 Body mass index (BMI) [Ratio] 55.98 kg/m2 Caryn Older ADMINISTRATOR HEALTH CARE FACILITY.PRESALES CONSULTANT Work Phone: [facility] 12-03-2023 13:35-0400 Body weight 143.34 kg Caryn Older ADMINISTRATOR HEALTH CARE FACILITY.PRESALES CONSULTANT Work Phone: [facility] 12-03-2023 13:35-0400 Diastolic blood pressure 76 mm[Hg] Caryn Older ADMINISTRATOR HEALTH CARE FACILITY.PRESALES CONSULTANT Work Phone: [facility] 12-03-2023 13:35-0400 Heart rate 92 /min Caryn Older ADMINISTRATOR HEALTH CARE FACILITY.PRESALES CONSULTANT Work Phone: [facility] 12-03-2023 13:35-0400 Respiratory rate 16 /min Caryn Older ADMINISTRATOR HEALTH CARE FACILITY.PRESALES CONSULTANT Work Phone: [facility] 12-03-2023 13:35-0400 SaO2% (BldA) [Mass fraction] 97 % Caryn Older ADMINISTRATOR HEALTH CARE FACILITY.PRESALES CONSULTANT Work Phone: [facility] 12-03-2023 13:35-0400 Systolic blood pressure 128 mm[Hg] Caryn Older ADMINISTRATOR HEALTH CARE FACILITY.PRESALES CONSULTANT Work Phone: [facility] 11-15-2023 13:15-0400 Body mass index (BMI) [Ratio] 55.52 kg/m2 Caryn Older ADMINISTRATOR HEALTH CARE FACILITY.PRESALES CONSULTANT Work Phone: [facility] 11-15-2023 13:15-0400 Body weight 142.16 kg Caryn Older ADMINISTRATOR HEALTH CARE FACILITY.PRESALES CONSULTANT Work Phone: [facility] 11-15-2023 13:15-0400 Diastolic blood pressure 94 mm[Hg] Caryn Older ADMINISTRATOR HEALTH CARE FACILITY.PRESALES CONSULTANT Work Phone: [facility] 11-15-2023 13:15-0400 Heart rate 98 /min Caryn Older ADMINISTRATOR HEALTH CARE FACILITY.PRESALES CONSULTANT Work Phone: [facility] 11-15-2023 13:15-0400 SaO2% (BldA) [Mass fraction] 95 % Caryn Older ADMINISTRATOR HEALTH CARE FACILITY.PRESALES CONSULTANT Work Phone: [facility] 11-15-2023 13:15-0400 Systolic blood pressure 142 mm[Hg] Caryn Older ADMINISTRATOR HEALTH CARE FACILITY.PRESALES CONSULTANT Work Phone: [facility] 10-13-2023 11:00-0400 Body height 160 cm Caryn Older ADMINISTRATOR HEALTH CARE FACILITY.PRESALES CONSULTANT Work Phone: [facility] 10-13-2023 11:00-0400 Body mass index (BMI) [Ratio] 55.8 kg/m2 Caryn Older ADMINISTRATOR HEALTH CARE FACILITY.PRESALES CONSULTANT Work Phone: [facility] 10-13-2023 11:00-0400 Body weight 142.88 kg Caryn Older ADMINISTRATOR HEALTH CARE FACILITY.PRESALES CONSULTANT Work Phone: [facility] 10-13-2023 11:00-0400 Diastolic blood pressure 72 mm[Hg] Caryn Older ADMINISTRATOR HEALTH CARE FACILITY.PRESALES CONSULTANT Work Phone: [facility] 10-13-2023 11:00-0400 Heart rate 101 /min Caryn Older ADMINISTRATOR HEALTH CARE FACILITY.PRESALES CONSULTANT Work Phone: [facility] 10-13-2023 11:00-0400 Respiratory rate 16 /min Caryn Older ADMINISTRATOR HEALTH CARE FACILITY.PRESALES CONSULTANT Work Phone: [facility] 10-13-2023 11:00-0400 SaO2% (BldA) [Mass fraction] 95 % Caryn Older ADMINISTRATOR HEALTH CARE FACILITY.PRESALES CONSULTANT Work Phone: [facility] 10-13-2023 11:00-0400 Systolic blood pressure 140 mm[Hg] Caryn Older ADMINISTRATOR HEALTH CARE FACILITY.PRESALES CONSULTANT Work Phone: [facility] 07-15-2023 13:45-0500 Body weight 144.7 kg Caryn Older ADMINISTRATOR HEALTH CARE FACILITY.PRESALES CONSULTANT Work Phone: [facility] 07-15-2023 13:45-0500 Diastolic blood pressure 70 mm[Hg] Caryn Older ADMINISTRATOR HEALTH CARE FACILITY.PRESALES CONSULTANT Work Phone: [facility] 07-15-2023 13:45-0500 Heart rate 84 /min Caryn Older ADMINISTRATOR HEALTH CARE FACILITY.PRESALES CONSULTANT Work Phone: [facility] 07-15-2023 13:45-0500 Respiratory rate 16 /min Caryn Older ADMINISTRATOR HEALTH CARE FACILITY.PRESALES CONSULTANT Work Phone: [facility] 07-15-2023 13:45-0500 SaO2% (BldA) [Mass fraction] 98 % Caryn Older ADMINISTRATOR HEALTH CARE FACILITY.PRESALES CONSULTANT Work Phone: [facility] 07-15-2023 13:45-0500 Systolic blood pressure 118 mm[Hg] Caryn Older ADMINISTRATOR HEALTH CARE FACILITY.PRESALES CONSULTANT Work Phone: [facility] 07-14-2023 18:36-0500 Body height 162.6 cm KANWAL GUEVARA MD [facility] 07-14-2023 18:36-0500 Body temperature 97.88 [degF] KANWAL GUEVARA MD [facility] 07-14-2023 18:36-0500 Body weight 145.5 kg KANWAL GUEVARA MD [facility] 07-14-2023 18:36-0500 Diastolic Blood Pressure Non-Invasive 98 mm[Hg] KANWAL GUEVARA MD [facility] 07-14-2023 18:36-0500 Heart rate 105 /min KANWAL GUEVARA MD [facility] 07-14-2023 18:36-0500 Respiratory rate 20 /min KANWAL GUEVARA MD [facility] 07-14-2023 18:36-0500 Systolic Blood Pressure Non-Invasive 156 mm[Hg] KANWAL GUEVARA MD [facility] 07-14-2023 08:35-0500 Body temperature 98.29 [degF] Steve Ramirez ADMINISTRATOR HEALTH CARE FACILITY.PRESALES CONSULTANT Work Phone: [facility] 07-14-2023 08:35-0500 Body weight 145.88 kg Steve Ramirez ADMINISTRATOR HEALTH CARE FACILITY.PRESALES CONSULTANT Work Phone: [facility] 07-14-2023 08:35-0500 Diastolic blood pressure 74 mm[Hg] Steve Ramirez ADMINISTRATOR HEALTH CARE FACILITY.PRESALES CONSULTANT Work Phone: [facility] 07-14-2023 08:35-0500 Heart rate 97 /min Steve Ramirez ADMINISTRATOR HEALTH CARE FACILITY.PRESALES CONSULTANT Work Phone: [facility] 07-14-2023 08:35-0500 Respiratory rate 22 /min Steve Ramirez ADMINISTRATOR HEALTH CARE FACILITY.PRESALES CONSULTANT Work Phone: [facility] 07-14-2023 08:35-0500 SaO2% (BldA) [Mass fraction] 94 % Steve Ramirez ADMINISTRATOR HEALTH CARE FACILITY.PRESALES CONSULTANT Work Phone: [facility] 07-14-2023 08:35-0500 Systolic blood pressure 118 mm[Hg] Steve Ramirez ADMINISTRATOR HEALTH CARE FACILITY.PRESALES CONSULTANT Work Phone: [facility] 07-09-2023 15:10-0500 Body temperature 98.49 [degF] Niranjan Pablogg PA Work Phone: [facility] 07-09-2023 15:10-0500 Body weight 143.79 kg Krislyn Aberegg PA Work Phone: [facility] 07-09-2023 15:10-0500 Diastolic blood pressure 90 mm[Hg] Krislyn Aberegg PA Work Phone: [facility] 07-09-2023 15:10-0500 Heart rate 90 /min Krislyn Aberegg PA Work Phone: [facility] 07-09-2023 15:10-0500 Respiratory rate 20 /min Krislyn Aberegg PA Work Phone: [facility] 07-09-2023 15:10-0500 SaO2% (BldA) [Mass fraction] 98 % Krislyn Aberegg PA Work Phone: [facility] 07-09-2023 15:10-0500 Systolic blood pressure 161 mm[Hg] Krislyn Aberegg PA Work Phone: [facility] 06-30-2023 15:50-0500 Body temperature 97.9 [degF] Shazia Lee ADMINISTRATOR HEALTH CARE FACILITY.PRESALES CONSULTANT Work Phone: [facility] 06-30-2023 15:50-0500 Body weight 144.88 kg Shazia Lee ADMINISTRATOR HEALTH CARE FACILITY.PRESALES CONSULTANT Work Phone: [facility] 06-30-2023 15:50-0500 Diastolic blood pressure 78 mm[Hg] Shazia Lee ADMINISTRATOR HEALTH CARE FACILITY.PRESALES CONSULTANT Work Phone: [facility] 06-30-2023 15:50-0500 Heart rate 85 /min Shazia Lee ADMINISTRATOR HEALTH CARE FACILITY.PRESALES CONSULTANT Work Phone: [facility] 06-30-2023 15:50-0500 Respiratory rate 18 /min Shazia Lee ADMINISTRATOR HEALTH CARE FACILITY.PRESALES CONSULTANT Work Phone: [facility] 06-30-2023 15:50-0500 SaO2% (BldA) [Mass fraction] 97 % Shazia Lee ADMINISTRATOR HEALTH CARE FACILITY.PRESALES CONSULTANT Work Phone: [facility] 06-30-2023 15:50-0500 Systolic blood pressure 128 mm[Hg] Shazia Lee ADMINISTRATOR HEALTH CARE FACILITY.PRESALES CONSULTANT Work Phone: [facility] 05-13-2023 06:03-0500 Body height 160.[address] Babar Phillip Work Phone: [facility] 05-13-2023 06:03-0500 Body mass index (BMI) [Ratio] 55.4 kg/m2 Dr. Babar Phillip Work Phone: [facility] 05-13-2023 06:03-0500 Body temperature 97.7 [degF] Dr. Babar Phillip Work Phone: [facility] 05-13-2023 06:03-0500 Body weight 141.[address] Babar Phillip Work Phone: [facility] 05-13-2023 06:03-0500 Diastolic blood pressure 93 mm[Hg] Dr. Babar Phillip Work Phone: [facility] 05-13-2023 06:03-0500 Heart rate 92 /min Dr. Babar Phillip Work Phone: [facility] 05-13-2023 06:03-0500 Respiratory rate 18 /min Dr. Babar Phillip Work Phone: [facility] 05-13-2023 06:03-0500 SaO2% (BldA) [Mass fraction] 93 % Dr. Babar Phillip Work Phone: [facility] 05-13-2023 06:03-0500 Systolic blood pressure 151 mm[Hg] Dr. Babar Phillip Work Phone: [facility] 05-03-2023 11:15-0500 Body temperature 98.3 [degF] [facility] 05-03-2023 11:15-0500 Diastolic blood pressure 70 mm[Hg] [facility] 05-03-2023 11:15-0500 Heart rate 87 /min [facility] 05-03-2023 11:15-0500 Respiratory rate 16 /min [facility] 05-03-2023 11:15-0500 SaO2% (BldA) [Mass fraction] 98 % [facility] 05-03-2023 11:15-0500 Systolic blood pressure 128 mm[Hg] [facility] 05-03-2023 09:27-0500 Body height 160.02 cm [facility] 05-03-2023 09:27-0500 Body mass index (BMI) [Ratio] 56.6 kg/m2 [facility] 05-03-2023 09:27-0500 Body weight 145 kg [facility] 03-03-2023 12:20-0400 Body weight 141.98 kg Caryn Older ADMINISTRATOR HEALTH CARE FACILITY.PRESALES CONSULTANT Work Phone: [facility] 03-03-2023 12:20-0400 Diastolic blood pressure 78 mm[Hg] Caryn Older ADMINISTRATOR HEALTH CARE FACILITY.PRESALES CONSULTANT Work Phone: [facility] 03-03-2023 12:20-0400 Heart rate 74 /min Caryn Older ADMINISTRATOR HEALTH CARE FACILITY.PRESALES CONSULTANT Work Phone: [facility] 03-03-2023 12:20-0400 Respiratory rate 16 /min Caryn Older ADMINISTRATOR HEALTH CARE FACILITY.PRESALES CONSULTANT Work Phone: [facility] 03-03-2023 12:20-0400 SaO2% (BldA) [Mass fraction] 98 % Caryn Older ADMINISTRATOR HEALTH CARE FACILITY.PRESALES CONSULTANT Work Phone: [facility] 03-03-2023 12:20-0400 Systolic blood pressure 128 mm[Hg] Caryn Older ADMINISTRATOR HEALTH CARE FACILITY.PRESALES CONSULTANT Work Phone: [facility] 02-15-2023 10:18-0400 Body temperature 97.3 [degF] Dr. Babar Phillip Work Phone: [facility] 02-15-2023 10:18-0400 Diastolic blood pressure 81 mm[Hg] Dr. Babar Phillip Work Phone: [facility] 02-15-2023 10:18-0400 Heart rate 84 /min Dr. Babar Phillip Work Phone: [facility] 02-15-2023 10:18-0400 Respiratory rate 16 /min Dr. Babar Phillip Work Phone: [facility] 02-15-2023 10:18-0400 SaO2% (BldA) [Mass fraction] 98 % Dr. Babar Phillip Work Phone: [facility] 02-15-2023 10:18-0400 Systolic blood pressure 138 mm[Hg] Dr. Babar Phillip Work Phone: [phone] [place] [address] 02-15-2023 08:34-0400 Body height 160.[address] Babar Phillip Work Phone: 5(482)[phone] [place] [address] 02-15-2023 08:34-0400 Body mass index (BMI) [Ratio] 54.9 kg/m2 Dr. Babar Phillip Work Phone: [phone] [place] [address] 02-15-2023 08:34-0400 Body weight 140.[address] Babar Phillip Work Phone: [facility] 01-11-2023 23:15-0400 Blood Pressure Cuff Size DR DANIEL NATION DO [facility] 01-11-2023 23:15-[address] DANIEL NATION DO [facility] 01-11-2023 23:15-[address] DANIEL NATION DO [facility] 01-11-2023 23:15-0400 Body height 162.[address] DANIEL NATION DO [facility] 01-11-2023 23:15-0400 Body temperature 97.16 [degF] DR DANIEL NATION DO [facility] 01-11-2023 23:15-0400 Body weight 141.[address] DANIEL NATION DO [facility] 01-11-2023 23:15-0400 Diastolic Blood Pressure Non-Invasive [address] DANIEL NATION DO [facility] 01-11-2023 23:15-0400 Heart rate 90 /min DR DANIEL NATION DO [facility] 01-11-2023 23:15-0400 Reason For Taking VItal Signs DR DANIEL NATION DO [facility] 01-11-2023 23:15-0400 Respiratory rate 20 /min DR DANIEL NATION DO [facility] 01-11-2023 23:15-0400 Systolic Blood Pressure Non-Invasive [address] DANIEL NATION DO [facility] 01-04-2023 11:55-0400 Body temperature 98.5 [degF] Dr. Babar Phillip Work Phone: [facility] 01-04-2023 11:55-0400 Diastolic blood pressure 52 mm[Hg] Dr. Babar Phillip Work Phone: [facility] [facility] 01-04-2023 11:55-0400 Heart rate 75 /min Dr. Babar Phillip Work Phone: [facility] 01-04-2023 11:55-0400 Respiratory rate 16 /min Dr. Babar Phillip Work Phone: [facility] 01-04-2023 11:55-0400 SaO2% (BldA) [Mass fraction] 97 % Dr. Babar Phillip Work Phone: [facility] 01-04-2023 11:55-0400 Systolic blood pressure 120 mm[Hg] Dr. Babar Phillip Work Phone: [facility] 01-04-2023 10:52-0400 Body height 162.[address] Babar Phillip Work Phone: [facility] 01-04-2023 10:52-0400 Body mass index (BMI) [Ratio] 53.3 kg/m2 Dr. Babar Phillip Work Phone: [facility] 01-04-2023 10:52-0400 Body weight [address] Babar Phillip Work Phone: [facility] 12-31-2022 11:05-0400 Body weight 139.71 kg Caryn Older ADMINISTRATOR HEALTH CARE FACILITY.PRESALES CONSULTANT Work Phone: [facility] 12-31-2022 11:05-0400 Diastolic blood pressure 82 mm[Hg] Caryn Older ADMINISTRATOR HEALTH CARE FACILITY.PRESALES CONSULTANT Work Phone: [facility] 12-31-2022 11:05-0400 Heart rate 76 /min Caryn Older ADMINISTRATOR HEALTH CARE FACILITY.PRESALES CONSULTANT Work Phone: [facility] 12-31-2022 11:05-0400 Respiratory rate 16 /min Caryn Older ADMINISTRATOR HEALTH CARE FACILITY.PRESALES CONSULTANT Work Phone: [facility] 12-31-2022 11:05-0400 SaO2% (BldA) [Mass fraction] 96 % Caryn Older ADMINISTRATOR HEALTH CARE FACILITY.PRESALES CONSULTANT Work Phone: [facility] 12-31-2022 11:05-0400 Systolic blood pressure 136 mm[Hg] Caryn Older ADMINISTRATOR HEALTH CARE FACILITY.PRESALES CONSULTANT Work Phone: [facility] 12-21-2022 13:02-0400 Body height [address] [facility] 12-21-2022 13:02-0400 Body weight 141.[address] [facility] 11-23-2022 10:50-0400 Body temperature 97.5 [degF] Caryn Older ADMINISTRATOR HEALTH CARE FACILITY.PRESALES CONSULTANT Work Phone: [facility] 11-23-2022 10:50-0400 Body weight 140.62 kg Caryn Older ADMINISTRATOR HEALTH CARE FACILITY.PRESALES CONSULTANT Work Phone: [facility] 11-23-2022 10:50-0400 Diastolic blood pressure 72 mm[Hg] Caryn Older ADMINISTRATOR HEALTH CARE FACILITY.PRESALES CONSULTANT Work Phone: [facility] 11-23-2022 10:50-0400 Heart rate 88 /min Caryn Older ADMINISTRATOR HEALTH CARE FACILITY.PRESALES CONSULTANT Work Phone: [facility] 11-23-2022 10:50-0400 Respiratory rate 16 /min Caryn Older ADMINISTRATOR HEALTH CARE FACILITY.PRESALES CONSULTANT Work Phone: [facility] 11-23-2022 10:50-0400 SaO2% (BldA) [Mass fraction] 98 % Caryn Older ADMINISTRATOR HEALTH CARE FACILITY.PRESALES CONSULTANT Work Phone: [facility] 11-23-2022 10:50-0400 Systolic blood pressure 122 mm[Hg] Caryn Older ADMINISTRATOR HEALTH CARE FACILITY.PRESALES CONSULTANT Work Phone: [facility] 11-10-2022 05:55-0400 Body mass index (BMI) [Ratio] 54.7 kg/m2 Dr. Babar Phillip Work Phone: [facility] 11-10-2022 05:55-0400 Body temperature 97.4 [degF] Dr. Babar Phillip Work Phone: [facility] 11-10-2022 05:55-0400 Body weight 140.[address] Babar Phillip Work Phone: [facility] 11-10-2022 05:55-0400 Diastolic blood pressure 82 mm[Hg] Dr. Babar Phillip Work Phone: [facility] 11-10-2022 05:55-0400 Heart rate 80 /min Dr. Babar Phillip Work Phone: [facility] 11-10-2022 05:55-0400 Respiratory rate 18 /min Dr. Babar Phillip Work Phone: [facility] 11-10-2022 05:55-0400 SaO2% (BldA) [Mass fraction] 94 % Dr. Babar Phillip Work Phone: [facility] 11-10-2022 05:55-0400 Systolic blood pressure 137 mm[Hg] Dr. Babar Phillip Work Phone: [facility] 08-24-2022 11:00-0400 Body weight 136.53 kg Caryn Older ADMINISTRATOR HEALTH CARE FACILITY.PRESALES CONSULTANT Work Phone: [facility] 08-24-2022 11:00-0400 Diastolic blood pressure 72 mm[Hg] Caryn Older ADMINISTRATOR HEALTH CARE FACILITY.PRESALES CONSULTANT Work Phone: [facility] 08-24-2022 11:00-0400 Heart rate 80 /min Caryn Older ADMINISTRATOR HEALTH CARE FACILITY.PRESALES CONSULTANT Work Phone: [facility] 08-24-2022 11:00-0400 Respiratory rate 16 /min Caryn Older ADMINISTRATOR HEALTH CARE FACILITY.PRESALES CONSULTANT Work Phone: [facility] 08-24-2022 11:00-0400 Systolic blood pressure 128 mm[Hg] Caryn Older ADMINISTRATOR HEALTH CARE FACILITY.PRESALES CONSULTANT Work Phone: [facility] 08-03-2022 12:01-0400 Body temperature 97.8 [degF] Dr. Babar Phillip Work Phone: [facility] 08-03-2022 12:01-0400 Diastolic blood pressure 82 mm[Hg] Dr. Babar Phillip Work Phone: [facility] 08-03-2022 12:01-0400 Heart rate 81 /min Dr. Babar Phillip Work Phone: [facility] 08-03-2022 12:01-0400 Respiratory rate 18 /min Dr. Babar Phillip Work Phone: [facility] 08-03-2022 12:01-0400 SaO2% (BldA) [Mass fraction] 100 % Dr. Babar Phillip Work Phone: [facility] 08-03-2022 12:01-0400 Systolic blood pressure 110 mm[Hg] Dr. Babar Phillip Work Phone: [phone] [place] [address] 08-03-2022 11:19-0400 Body height 160.[address] Babar Phillip Work Phone: [facility] 08-03-2022 11:19-0400 Body mass index (BMI) [Ratio] 54.3 kg/m2 Dr. Babar Phillip Work Phone: [facility] 08-03-2022 11:19-0400 Body weight [address] Babar Phillip Work Phone: [facility] 07-17-2022 14:10-0500 Body weight 136.53 kg Caryn Older ADMINISTRATOR HEALTH CARE FACILITY.PRESALES CONSULTANT Work Phone: [facility] 07-17-2022 14:10-0500 Diastolic blood pressure 80 mm[Hg] Caryn Older ADMINISTRATOR HEALTH CARE FACILITY.PRESALES CONSULTANT Work Phone: [facility] 07-17-2022 14:10-0500 Heart rate 80 /min Caryn Older ADMINISTRATOR HEALTH CARE FACILITY.PRESALES CONSULTANT Work Phone: [facility] 07-17-2022 14:10-0500 Respiratory rate 16 /min Caryn Older ADMINISTRATOR HEALTH CARE FACILITY.PRESALES CONSULTANT Work Phone: [facility] 07-17-2022 14:10-0500 Systolic blood pressure 128 mm[Hg] Caryn Older ADMINISTRATOR HEALTH CARE FACILITY.PRESALES CONSULTANT Work Phone: [facility] 06-17-2022 14:05-0500 Body height 160 cm Jared Xin PA-C Work Phone: [facility] 06-17-2022 14:05-0500 Body weight 138.35 kg Jared Xin PA-C Work Phone: [facility] 06-03-2022 15:32-0500 Body height 160 cm Kelli Abdirashid PA-C Work Phone: [facility] 06-03-2022 15:32-0500 Body weight 138.35 kg Kelli Abdirashid PA-C Work Phone: [facility] 06-03-2022 15:32-0500 Diastolic blood pressure 74 mm[Hg] Kelli Abdirashid PA-C Work Phone: [facility] 06-03-2022 15:32-0500 Heart rate 84 /min Kelli Abdirashid PA-C Work Phone: [facility] 06-03-2022 15:32-0500 Systolic blood pressure 124 mm[Hg] Kelli Abdirashid PA-C Work Phone: [facility] 05-25-2022 10:43-0500 Body weight 137.89 kg Caryn Older ADMINISTRATOR HEALTH CARE FACILITY.PRESALES CONSULTANT Work Phone: [facility] 05-25-2022 10:43-0500 Diastolic blood pressure 78 mm[Hg] Caryn Older ADMINISTRATOR HEALTH CARE FACILITY.PRESALES CONSULTANT Work Phone: [facility] 05-25-2022 10:43-0500 Heart rate 88 /min Caryn Older ADMINISTRATOR HEALTH CARE FACILITY.PRESALES CONSULTANT Work Phone: [facility] 05-25-2022 10:43-0500 Respiratory rate 16 /min Caryn Older ADMINISTRATOR HEALTH CARE FACILITY.PRESALES CONSULTANT Work Phone: [facility] 05-25-2022 10:43-0500 Systolic blood pressure 122 mm[Hg] Caryn Older ADMINISTRATOR HEALTH CARE FACILITY.PRESALES CONSULTANT Work Phone: [facility] 05-01-2022 12:40-0500 Body mass index (BMI) [Ratio] 54.8 kg/m2 Dr. Babar Phillip Work Phone: [facility] 05-01-2022 12:40-0500 Body temperature 98.6 [degF] Dr. Babar Phillip Work Phone: [facility] 05-01-2022 12:40-0500 Body weight 136.[address] Babar Phillip Work Phone: [facility] 05-01-2022 12:40-0500 Diastolic blood pressure 83 mm[Hg] Dr. Babar Phillip Work Phone: [facility] 05-01-2022 12:40-0500 Heart rate 98 /min Dr. Babar Phillip Work Phone: [facility] 05-01-2022 12:40-0500 Respiratory rate 20 /min Dr. Babar Phillip Work Phone: [facility] 05-01-2022 12:40-0500 SaO2% (BldA) [Mass fraction] 95 % Dr. Babar Phillip Work Phone: [facility] 05-01-2022 12:40-0500 Systolic blood pressure 145 mm[Hg] Dr. Babar Phillip Work Phone: [facility] 04-15-2022 14:35-0500 Body temperature 97.11 [degF] Caryn Older ADMINISTRATOR HEALTH CARE FACILITY.PRESALES CONSULTANT Work Phone: [facility] 04-15-2022 14:35-0500 Body weight 136.08 kg Caryn Older ADMINISTRATOR HEALTH CARE FACILITY.PRESALES CONSULTANT Work Phone: [facility] 04-15-2022 14:35-0500 Diastolic blood pressure 78 mm[Hg] Caryn Older ADMINISTRATOR HEALTH CARE FACILITY.PRESALES CONSULTANT Work Phone: [facility] 04-15-2022 14:35-0500 Heart rate 84 /min Caryn Older ADMINISTRATOR HEALTH CARE FACILITY.PRESALES CONSULTANT Work Phone: [facility] 04-15-2022 14:35-0500 Respiratory rate 16 /min Caryn Older ADMINISTRATOR HEALTH CARE FACILITY.PRESALES CONSULTANT Work Phone: [facility] 04-15-2022 14:35-0500 SaO2% (BldA) [Mass fraction] 95 % Caryn Older ADMINISTRATOR HEALTH CARE FACILITY.PRESALES CONSULTANT Work Phone: [facility] 04-15-2022 14:35-0500 Systolic blood pressure 126 mm[Hg] Caryn Older ADMINISTRATOR HEALTH CARE FACILITY.PRESALES CONSULTANT Work Phone: [facility] 04-08-2022 14:29-0500 Body weight 136.08 kg Caryn Older ADMINISTRATOR HEALTH CARE FACILITY.PRESALES CONSULTANT Work Phone: [facility] 04-08-2022 14:29-0500 Diastolic blood pressure 82 mm[Hg] Caryn Older ADMINISTRATOR HEALTH CARE FACILITY.PRESALES CONSULTANT Work Phone: [facility] 04-08-2022 14:29-0500 Heart rate 80 /min Caryn Older ADMINISTRATOR HEALTH CARE FACILITY.PRESALES CONSULTANT Work Phone: [facility] 04-08-2022 14:29-0500 Respiratory rate 16 /min Caryn Older ADMINISTRATOR HEALTH CARE FACILITY.PRESALES CONSULTANT Work Phone: [facility] 04-08-2022 14:29-0500 Systolic blood pressure 132 mm[Hg] Caryn Older ADMINISTRATOR HEALTH CARE FACILITY.PRESALES CONSULTANT Work Phone: [facility] 03-25-2022 17:44-0500 Body weight 137.44 kg Caryn Older ADMINISTRATOR HEALTH CARE FACILITY.PRESALES CONSULTANT Work Phone: [facility] 03-25-2022 17:44-0500 Diastolic blood pressure 78 mm[Hg] Caryn Older ADMINISTRATOR HEALTH CARE FACILITY.PRESALES CONSULTANT Work Phone: [facility] 03-25-2022 17:44-0500 Heart rate 80 /min Caryn Older ADMINISTRATOR HEALTH CARE FACILITY.PRESALES CONSULTANT Work Phone: [facility] 03-25-2022 17:44-0500 Respiratory rate 16 /min Caryn Older ADMINISTRATOR HEALTH CARE FACILITY.PRESALES CONSULTANT Work Phone: [facility] 03-25-2022 17:44-0500 Systolic blood pressure 128 mm[Hg] Caryn Older ADMINISTRATOR HEALTH CARE FACILITY.PRESALES CONSULTANT Work Phone: [facility] 02-20-2022 13:19-0400 Diastolic blood pressure 82 mm[Hg] Caryn Older ADMINISTRATOR HEALTH CARE FACILITY.PRESALES CONSULTANT Work Phone: [facility] 02-20-2022 13:19-0400 Heart rate 84 /min Caryn Older ADMINISTRATOR HEALTH CARE FACILITY.PRESALES CONSULTANT Work Phone: [facility] 02-20-2022 13:19-0400 Respiratory rate 16 /min Caryn Older ADMINISTRATOR HEALTH CARE FACILITY.PRESALES CONSULTANT Work Phone: [facility] 02-20-2022 13:19-0400 Systolic blood pressure 134 mm[Hg] Caryn Older ADMINISTRATOR HEALTH CARE FACILITY.PRESALES CONSULTANT Work Phone: [facility] 12-22-2021 15:40-0400 Body temperature 97.7 [degF] Anu Older ADMINISTRATOR HEALTH CARE FACILITY.PRESALES CONSULTANT Work Phone: [facility] 12-22-2021 15:40-0400 Body weight 138.8 kg Anu Older ADMINISTRATOR HEALTH CARE FACILITY.PRESALES CONSULTANT Work Phone: [facility] 12-22-2021 15:40-0400 Diastolic blood pressure 84 mm[Hg] Anu Older ADMINISTRATOR HEALTH CARE FACILITY.PRESALES CONSULTANT Work Phone: [facility] 12-22-2021 15:40-0400 Heart rate 82 /min Anu Older ADMINISTRATOR HEALTH CARE FACILITY.PRESALES CONSULTANT Work Phone: [facility] 12-22-2021 15:40-0400 Respiratory rate 18 /min Anu Older ADMINISTRATOR HEALTH CARE FACILITY.PRESALES CONSULTANT Work Phone: [facility] 12-22-2021 15:40-0400 SaO2% (BldA) [Mass fraction] 98 % Anu Older ADMINISTRATOR HEALTH CARE FACILITY.PRESALES CONSULTANT Work Phone: [facility] 12-22-2021 15:40-0400 Systolic blood pressure 124 mm[Hg] Anu Older ADMINISTRATOR HEALTH CARE FACILITY.PRESALES CONSULTANT Work Phone: [facility] 12-19-2021 15:46-0400 Body temperature 98.01 [degF] Sheri Jono ADMINISTRATOR HEALTH CARE FACILITY.PRESALES CONSULTANT Work Phone: [facility] 12-19-2021 15:46-0400 Body weight 138.98 kg Sheri Jono ADMINISTRATOR HEALTH CARE FACILITY.PRESALES CONSULTANT Work Phone: [facility] 12-19-2021 15:46-0400 Diastolic blood pressure 78 mm[Hg] Sheri Jono ADMINISTRATOR HEALTH CARE FACILITY.PRESALES CONSULTANT Work Phone: [facility] 12-19-2021 15:46-0400 Heart rate 113 /min Sheri Jono ADMINISTRATOR HEALTH CARE FACILITY.PRESALES CONSULTANT Work Phone: [facility] 12-19-2021 15:46-0400 Respiratory rate 18 /min Sheri Jono ADMINISTRATOR HEALTH CARE FACILITY.PRESALES CONSULTANT Work Phone: [facility] 12-19-2021 15:46-0400 SaO2% (BldA) [Mass fraction] 97 % Sheri Jono ADMINISTRATOR HEALTH CARE FACILITY.PRESALES CONSULTANT Work Phone: [facility] 12-19-2021 15:46-0400 Systolic blood pressure 126 mm[Hg] Sheri De La Cruz ADMINISTRATOR HEALTH CARE FACILITY.PRESALES CONSULTANT Work Phone: [facility] 10-20-2021 13:31-0400 Body weight 140.16 kg Caryn Older ADMINISTRATOR HEALTH CARE FACILITY.PRESALES CONSULTANT Work Phone: [facility] 10-20-2021 13:31-0400 Diastolic blood pressure 72 mm[Hg] Caryn Older ADMINISTRATOR HEALTH CARE FACILITY.PRESALES CONSULTANT Work Phone: [facility] 10-20-2021 13:31-0400 Heart rate 80 /min Caryn Older ADMINISTRATOR HEALTH CARE FACILITY.PRESALES CONSULTANT Work Phone: [facility] 10-20-2021 13:31-0400 Respiratory rate 16 /min Caryn Older ADMINISTRATOR HEALTH CARE FACILITY.PRESALES CONSULTANT Work Phone: [facility] 10-20-2021 13:31-0400 Systolic blood pressure 128 mm[Hg] Caryn Older ADMINISTRATOR HEALTH CARE FACILITY.PRESALES CONSULTANT Work Phone: [facility] Encounters Encounter Date Encounter Type Care Provider Facility Start: 12-26-2024 ambulatory [facility] Facility:[facility] Start: 12-25-2024 End: 12-25-2024 Office outpatient visit 25 minutes ADMINISTRATOR HEALTH CARE FACILITY.PRESALES CONSULTANT Work Phone: [facility] [place] Comment on above: Abscess (Primary Dx) ; Wound pain Start: 12-25-2024 End: 12-25-2024 [facility] Facility:[facility] Start: 12-24-2024 End: 12-25-2024 Emergency department patient visit Dr. Babar Phillip MD Work Phone: -Emergency Department Work Phone: Start: 12-24-2024 End: 12-24-2024 Patient encounter procedure Yolanda Wyatt ADMINISTRATOR HEALTH CARE FACILITY.PRESALES CONSULTANT Work Phone: [facility] Comment on above: Left breast abscess (Primary Dx); Cellulitis of skin Start: 12-24-2024 End: 12-24-2024 ambulatory YOLANDA TANAJACINDA Facility:[facility] Start: 12-23-2024 End: 12-23-2024 Emergency department patient visit JESÚS HERRERA DO [facility] Start: 12-22-2024 End: 12-22-2024 ambulatory [facility] Facility:[facility] Start: 12-21-2024 End: 12-21-2024 ambulatory [facility] Facility:[facility] Start: 11-21-2024 End: 11-22-2024 Refill Caryn Older ADMINISTRATOR HEALTH CARE FACILITY.PRESALES CONSULTANT Work Phone: [facility] Comment on above: Refill Request Start: 11-20-2024 End: 11-20-2024 Office outpatient visit 25 minutes Caryn Older ADMINISTRATOR HEALTH CARE FACILITY.PRESALES CONSULTANT Work Phone: [facility] Comment on above: Rash (Primary Dx); Skin infection Start: 11-20-2024 End: 11-20-2024 [facility] Facility:[facility] Start: 10-31-2024 End: 12-01-2024 ambulatory Babar Phillip MD Work Phone: [facility] Start: 10-26-2024 End: 10-26-2024 Refill Babar Phillip MD Work Phone: [facility] Comment on above: Refill Request Start: 10-20-2024 End: 10-20-2024 Office outpatient visit 25 minutes Caryn Older ADMINISTRATOR HEALTH CARE FACILITY.PRESALES CONSULTANT Work Phone: [facility] Comment on above: Chest pain, unspecif ied type (Primary Dx); Mild intermittent asthma with acute exacerbation (HCC); Dyspnea, unspecified type; Wheezing; Other hyperlipidemia; Tobacco use; Fatigue, unspecified type Start: 10-20-2024 End: 10-20-2024 [facility] Facility:[facility] Start: 10-17-2024 End: 10-17-2024 Office outpatient visit 40 minutes Charis M Galina ADMINISTRATOR HEALTH CARE FACILITY.PRESALES CONSULTANT Work Phone: Pulmonary Medicine Comment on above: Asthma, moderate per sistent, poorly-controlled (HCC) (Primary Dx); Multiple allergies; Productive cough; Cigarette smoker; Morbid obesity (HCC); Chronic hypoxemic respiratory failure (HCC); Lung nodule Start: 10-17-2024 End: 10-17-2024 ambulatory [facility] Facility:[facility] Start: 10-14-2024 End: 10-15-2024 Emergency department patient visit DAVID NGUYEN MD [facility] Start: 10-11-2024 End: 10-13-2024 Follow-up encounter Caryn Lowery APRN.PRESALES CONSULTANT Work Phone: [facility] Start: 10-11-2024 End: 10-11-2024 Subsequent hospital visit by physician Xr [facility] Work Phone: Radiology Comment on above: Chest pain, unspecif ied type [R07.9] Start: 10-11-2024 End: 10-11-2024 Office outpatient visit 25 minutes Caryn Lowery APRN.PRESALES CONSULTANT Work Phone: [facility] [place] Comment on above: Chest pain, unspecif ied type (Primary Dx); Dyspnea, unspecified type; Wheezing; Subacute cough; Acute pain of both shoulders; History of pulmonary aspergillosis; Tobacco dependence due to cigarettes; Gastroesophageal reflux disease without esophagitis Start: 10-11-2024 End: 10-11-2024 ambulatory Caryn Lowery APRN.PRESALES CONSULTANT Work Phone: [facility] [place] Comment on above: Allergy Start: 10-10-2024 End: 10-13-2024 ambulatory Babar Phillip MD Work Phone: Internal [facility] Start: 08-02-2024 End: 10-02-2024 Follow-up encounter Caryn Lowery APRN.PRESALES CONSULTANT Work Phone: [facility] Start: 07-31-2024 End: 07-31-2024 ambulatory [facility] Facility:[facility] Start: 07-27-2024 End: 07-27-2024 ambulatory [facility] Facility:[facility] Start: 07-27-2024 End: 07-27-2024 Patient encounter procedure Caryn Lowery APRN.PRESALES CONSULTANT Work Phone: [facility] [place] Comment on above: Controlled type 2 di abetes mellitus without complication, without long-term current use of insulin (HCC) (Primary Dx); Hypothyroidism, unspecified type Start: 07-13-2024 End: 07-13-2024 Subsequent hospital visit by physician Марина [facility] Work Phone: Radiology Comment on above: Acute cough [R05.1] Start: 07-13-2024 End: 07-13-2024 ambulatory [facility] Facility:[facility] Start: 07-13-2024 End: 07-13-2024 Patient encounter procedure Janie Vinson APRN.PRESALES CONSULTANT Work Phone: [facility] Comment on above: URI, acute (Primary Dx); Acute cough Start: 06-30-2024 End: 06-30-2024 [facility] Facility:[facility] Start: 06-30-2024 End: 06-30-2024 Patient encounter procedure Caryn Lowery APRN.PRESALES CONSULTANT Work Phone: [facility] [place] Comment on above: Controlled type 2 di abetes mellitus without complication, without long-term current use of insulin (HCC) (Primary Dx); Morbid obesity with BMI of 50.0-59.9, adult (HCC) Start: 06-19-2024 End: 06-19-2024 Telephone encounter Elle Boone MD Work Phone: Pulmonary Medicine Start: 06-16-2024 End: 06-16-2024 ambulatory [facility] Work Phone: [facility] Comment on above: Spirometry Start: 06-16-2024 End: 06-16-2024 Patient encounter procedure [facility] Work Phone: [facility] Comment on above: Mild persistent asth ma without complication (Primary Dx); Morbid obesity (HCC); Chronic hypoxemic respiratory failure (HCC); Lung nodule; Cigarette smoker Start: 05-16-2024 End: 05-19-2024 Refill Babar Phillip MD Work Phone: [facility] [place] Comment on above: Refill Request Start: 04-28-2024 End: 04-28-2024 [facility] Facility:[facility] Start: 04-28-2024 End: 04-28-2024 Patient encounter procedure Caryn Lowery APRN.PRESALES CONSULTANT Work Phone: [facility] [place] Comment on above: 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[facility]) (Primary Dx); Mild intermittent asthma with acute exacerbation; Controlled type 2 diabetes mellitus without complication, without long-term current use of insulin ([facility]); Gastroesophageal reflux disease without esophagitis; Morbid obesity with BMI of 50.0-59.9, adult ([facility]); Encounter for immunization; Essential hypertension; Other hyperlipidemia Start: 04-12-2024 End: 04-12-2024 Refill Babar Phillip MD Work Phone: [facility] [place] Comment on above: Refill Request Start: 04-05-2024 End: 04-05-2024 Telephone encounter Shazia Lee APRN.PRESALES CONSULTANT Work Phone: [facility] Comment on above: Results Start: 04-02-2024 End: 04-02-2024 [facility] Facility:[facility] Start: 04-02-2024 End: 04-02-2024 Patient encounter procedure Victoria Nguyen APRN.PRESALES CONSULTANT Work Phone: [facility] Comment on above: Abscess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 [facility]ACILITY.PRESALES CONSULTANT Work Phone: Start: 11-23-2023 Us abdominal real ti me w/image limited Caryn Older ADMINISTRATOR [facility]ARE FACILITY.PRESALES CONSULTANT Work Phone: Start: 07-09-2023 Radiologic exam ches [...] exam ches t 2 views Anu Prince ADMINISTRATOR HEALTH CARE FACILITY.PRESALES CONSULTANT Work Phone: Start: 02-15-2023 Injection of facet [...] 11-23-2022 Hemoglobin A1c/Hemoglobin.total in Blood Caryn Lowery ADMINISTRATOR [facility]ARE [facility]ACILITY.PRESALES CONSULTANT Work Phone: Start: 08-20-2022 Radex shoulder compl ete minimum 2 views [facility] Provider Start: 08-03-2022 Local anesthetic sac ral epidural block Dr. Babar Phillip Work Phone: Start: 06-30-2022 HCG QUANTITATIVE Cabrera Merrick Luna Work Phone: Start: 05-13-2022 Radiologic exam knee complete 4/more views Angelika Osborne ADMINISTRATOR HE[facility] CARE FACILITY.PRESALES CONSULTANT Work Phone: Start: 04-08-2022 End: 04-08-2022 Urnls dip stick/tablet rgnt auto w/o microscopy Caryn Lowery ADMINISTRATOR [facility] CARE FACILITY.PRESALES CONSULTANT Work Phone: Start: 03-30-2022 Us abdominal real ti me w/image limited Caryn Lowery ADMINISTRATOR [facility]ARE [facility]ACILITY.PRESALES CONSULTANT Work Phone: Start: 02-20-2022 INFLUENZA VACCINE QUADRIVALENT 6 MO - 64 YRS IM Caryn Lowery ADMINISTRATOR [facility]ALTH CARE FACILITY.PRESALES CONSULTANT Work Phone: Start: 02-09-2022 Radex spine lumbosac ral 2/3 views [facility] Provider Start: 04-24-2021 Radiologic exam ches t 2 views Babar Phillip MD Work Phone: Start: 03-12-2021 Radiologic exam ches t 2 views Lani Mendez PA-C Work Phone: Start: 01-24-2021 Radiologic exam ches t 2 views Steve Mullins MD Work Phone: Start: 11-12-2020 Radiologic exam ches t 2 views Anu Prince ADMINISTRATOR [facility]ARE [facility]ACILITY.PRESALES CONSULTANT Work Phone: Start: 11-11-2020 Adult depression scr eening assessment Duran Blunt MD Work Phone: Start: 03-02-2017 Colonoscopy Duran greenwood MD Work Phone: Ankle region structu re (body structure) CARYN OLDER ADMINISTRATOR HEALTH CARE FACILITY-PRESALES CONSULTANT Comment on above: lwft - orif Appendectomy CARYN LOWERY ADMINISTRATOR HEALTH CARE FACILITY- PRESALES CONSULTANT Carpal tunnel syndro me (disorder) CARYN LOWERY ADMINISTRATOR [facility]ARE [facility]ACILITY-PRESALES CONSULTANT Comment on above: pato Tonsillectomy CARYN LOWERY ADMINISTRATOR [facility]ARE [facility]ACILITY -PRESALES CONSULTANT Plan of Treatment Date Care Activity Detail Author Start: 12-25-2025 Annual PCP Team Chronic Disease Visit Annual PCP Team Chronic Disease Visit [facility] Start: 12-22-2025 Annual PCP Team Chronic Disease Visit Annual PCP Team Chronic Disease Visit [facility] Start: 11-20-2025 Annual PCP Team Chronic Disease Visit Annual PCP Team Chronic Disease Visit [facility] Start: 10-20-2025 Annual PCP Team Chronic Disease Visit Annual PCP Team Chronic Disease Visit [facility] Start: 10-20-2025 BP Controlled (<130/80) BP Controlled (<130/80) [facility] Start: 10-17-2025 BP Controlled (<130/80) BP Controlled (<130/80) [facility] Start: 10-11-2025 Annual PCP Team Chronic Disease Visit Annual PCP Team Chronic Disease Visit [facility] Start: 10-11-2025 BP Controlled (<130/80) BP Controlled (<130/80) [facility] Start: 10-11-2025 Hepatitis B surface antibody level LDL Cholesterol [facility] Start: 07-27-2025 Annual PCP Team Chronic Disease Visit Annual PCP Team Chronic Disease Visit [facility] Start: 07-27-2025 BP Controlled (<130/80) BP Controlled (<130/80) [facility] Start: 07-27-2025 Hepatitis B Vaccine (1 of 3 - 19+ 3-dose series) Hepatitis B Vaccine (1 of 3 - 19+ 3-dose series) [facility] Comment on above: Postponed from 1997 (Declined at t his time) Start: 07-27-2025 Urine microalbumin profile DTaP,Tdap,Td Vaccine (2 - Td or Tdap) [facility] Comment on above: Postponed from 10/03/2022 (Declined at t his time) Start: 06-30-2025 Annual PCP Team Chronic Disease Visit Annual PCP Team Chronic Disease Visit [facility] Start: 06-30-2025 BP Controlled (<130/80) BP Controlled (<130/80) [facility] Start: 06-24-2025 Hemoglobin A1c measurement HbA1C [facility] Start: 04-28-2025 Annual PCP Team Chronic Disease Visit Annual PCP Team Chronic Disease Visit [facility] Start: 04-16-2025 Screening for malignant neoplasm of colon Colorectal Cancer Screening [facility] Comment on above: Postponed from 2023 (Declined at t his time) Start: 03-17-2025 Annual PCP Team Chronic Disease Visit Annual PCP Team Chronic Disease Visit [facility] Start: 02-20-2025 End: 02-20-2025 Patient encounter procedure 02/20/2025 3:00 PM EDT Office Visit Pulmonary Medicine [address] [place] [address] Charis Swan APRN.PRESALES CONSULTANT [address] [place] [address] 4 mo follow up Pulmonary Medicine Comment on above: 4 mo follow up Start: 02-16-2025 Annual PCP Team Chronic Disease Visit Annual PCP Team Chronic Disease Visit [facility] Start: 02-01-2025 Annual PCP Team Chronic Disease Visit Annual PCP Team Chronic Disease Visit [facility] Start: 02-01-2025 BP Controlled (<130/80) BP Controlled (<130/80) [facility] Start: 02-01-2025 Covid-19 Vaccine ( season) Covid-19 Vaccine () [facility] Comment on above: Postponed from 01/16/2024 (Declined at t his time) Start: 02-01-2025 Covid-19 Vaccine ( season) Covid-19 Vaccine () [facility] Comment on above: Postponed from 01/16/2024 (Declined at t his time) Start: 01-31-2025 Hemoglobin A1c measurement HbA1C [facility] Start: 01-23-2025 End: 01-23-2025 Patient encounter procedure 01/23/2025 1:00 PM EDT Office Visit [facility] [address] [place] [id number] Babar Phillip MD [address] [facility], [place] [address] 3 month follow up [facility] Comment on above: 3 month follow up Start: 01-20-2025 Annual PCP Team Chronic Disease Visit Annual PCP Team Chronic Disease Visit [facility] Start: 01-19-2025 End: 01-19-2025 Patient encounter procedure 01/19/2025 1:00 PM EDT Office Visit Internal Medicine [place] [address] [facility], [place] [id number] Caryn Lowery APRN.PRESALES CONSULTANT [address] [place], [place] [id number] 3 month follow up [facility] Comment on above: 3 month follow up Start: 01-15-2025 Influenza vaccination Influenza Vaccine (#1) [facility] Start: 01-12-2025 Annual PCP Team Chronic Disease Visit Annual PCP Team Chronic Disease Visit [facility] Start: 01-02-2025 Annual PCP Team Chronic Disease Visit Annual PCP Team Chronic Disease Visit [facility] Start: 12-29-2024 End: 12-29-2024 Patient encounter procedure 12/29/2024 1:00 PM EDT Office Visit Internal Medicine [place] [address] [place], [place] [id number] Caryn Lowery APRN.PRESALES CONSULTANT [address] [place], [place] [id number] Follow up breast abcess [facility] Comment on above: Follow up breast abcess Start: 12-26-2024 End: 12-26-2024 Patient encounter procedure General Surgery Comment on above: Left breast abscess [N61.1] Left breast abscess, urgent care referral, started on doxy bjs Start: 12-25-2024 End: 12-25-2024 Patient encounter procedure 12/25/2024 3:00 PM EDT Office Visit Internal Medicine [place] [address] [facility], [place] [id number] Caryn Lowery APRN.PRESALES CONSULTANT [address] [place], [place] [id number] Follow up boil [facility] Comment on above: Follow up boil Start: 12-25-2024 [facility] Start: 12-02-2024 Annual PCP Team Chronic Disease Visit Annual PCP Team Chronic Disease Visit [facility] Start: 12-02-2024 BP Controlled (<130/80) BP Controlled (<130/80) [facility] Start: 11-14-2024 Annual PCP Team Chronic Disease Visit Annual PCP Team Chronic Disease Visit [facility] Start: 11-13-2024 Influenza vaccination Influenza Vaccine (#1) [facility] Comment on above: Postponed from 01/16/2024 (Declined at t his time) Start: 10-27-2024 Hemoglobin A1c measurement HbA1C [facility] Start: 10-26-2024 End: 10-26-2024 Patient encounter procedure [facility] Comment on above: 3 month follow up Chest pain, unspecif ied type [R07.9]; SOB (shortness of breath) [R06.02]; Elevated d-dimer [R79.89] Start: 10-20-2024 End: 10-20-2024 Patient encounter procedure 10/20/2024 11:20 AM EDT Office Visit [facility] [address] [place] [address] Caryn Lowery APRN.PRESALES CONSULTANT [address] [place] [address] 1 week follow up [facility] [place] Comment on above: 1 week follow up Start: 10-19-2024 Annual PCP Team Chronic Disease Visit Annual PCP Team Chronic Disease Visit [facility] Start: 10-17-2024 End: 10-17-2024 Patient encounter procedure Pulmonary Medicine Comment on above: 4 MTH F/U Start: 10-12-2024 Annual PCP Team Chronic Disease Visit Annual PCP Team Chronic Disease Visit [facility] Start: 10-11-2024 End: 01-10-2025 Bacteria identified in Unspecified specimen by Respiratory culture [facility] Work Phone: Comment on above: Expected: 10/11/2024, Expires: Start: 10-03-2024 Hepatitis B surface antibody level LDL Cholesterol [facility] Start: 07-27-2024 End: 10-26-2024 Hemoglobin A1c in Blood HEMOGLOBIN A1C Lab Routine Controlled type 2 diabetes mellitus without complication, without long-term current use of insulin (HCC) Expected: 07/27/2024, Expires: 10/26/2024 [facility] Work Phone: Comment on above: Expected: 07/27/2024, Expires: Start: 07-27-2024 End: 10-26-2024 Thyrotropin [Units/volume] in Serum or Plasma THYROID STIMULATING HORMONE Lab Routine Hypothyroidism, unspecified type Expected: 07/27/2024, Expires: 10/26/2024 [facility] Comment on above: Expected: 07/27/2024, Expires: Start: 07-27-2024 End: 07-27-2024 Patient encounter procedure 07/27/2024 1:00 PM EDT Office Visit Internal Medicine [place] [address] [place] [address] Caryn Lowery APRN.PRESALES CONSULTANT [address] [place], [place] [id number] 3 month follow up [facility] [place] Comment on above: 3 month follow up Start: 07-14-2024 Annual PCP Team Chronic Disease Visit Annual PCP Team Chronic Disease Visit [facility] Start: 07-14-2024 BP Controlled (<130/80) BP Controlled (<130/80) [facility] Start: 06-30-2024 End: 06-30-2024 Patient encounter procedure 06/30/2024 1:00 PM EST Office Visit Internal Medicine [place] [address] [place] [address] Caryn Lowery, ADMINISTRATOR HEALTH CARE FACILITY.PRESALES CONSULTANT [address] [place], [place] [id number] DM follow up [facility] [place] Comment on above: DM follow up Start: 05-31-2024 Annual PCP Team Chronic Disease Visit Annual PCP Team Chronic Disease Visit [facility] Start: 05-31-2024 Covid-19 Vaccine (#1) Covid-19 Vaccine (#1) [facility] Comment on above: Postponed from 1978 (Declined at t his time) Start: 05-31-2024 Covid-19 Vaccine ( season) Covid-19 Vaccine ( season) [facility] Comment on above: Postponed from 01/15/2023 (Declined at t his time) Start: 05-31-2024 Hepatitis B Vaccine (1 of 3 - 19+ 3-dose series) Hepatitis B Vaccine (1 of 3 - 19+ 3-dose series) [facility] Comment on above: Postponed from 1997 (Declined at t his time) Start: 05-31-2024 Hepatitis B Vaccine (1 of 3 - 3-dose series) Hepatitis B Vaccine (1 of 3 - 3-dose series) [facility] Comment on above: Postponed from 1978 (Declined at t his time) Start: 05-31-2024 Pneumococcal vaccination Pneumococcal Vaccine (2 of 2 - PPSV23 or PCV20) [facility] Comment on above: Postponed from 04/23/2021 (Declined at t his time) Start: 05-31-2024 Screening for malignant neoplasm of cervix [facility] Comment on above: Postponed from 08/23/2013 (Declined at t his time) Start: 05-31-2024 Spirometry Spirometry [facility] Comment on above: Postponed from 01/10/1996 (Declined at t his time) Start: 05-31-2024 Urine microalbumin profile DTaP,Tdap,Td Vaccine (2 - Td or Tdap) [facility] Comment on above: Postponed from 10/03/2022 (Declined at t his time) Start: 05-23-2024 End: 05-23-2024 Patient encounter procedure 05/23/2024 3:15 PM EST Office Visit Pulmonary Medicine [address] [place] [address] Elle Boone MD [address] [place], [place] [id number] Shortness of breath [R06.02] Pulmonary Medicine Comment on above: Shortness of breath [R06.02] Start: 05-23-2024 End: 05-23-2024 ambulatory 05/23/2024 2:45 PM EST Procedure PULM LAB [facility] [address] [place] [address] [facility], Pulm Lab [facility] [address] [place] [address] Shortness of breath [R06.02] [facility] Comment on above: Shortness of breath [R06.02] Start: 04-28-2024 End: 04-28-2024 Patient encounter procedure 04/28/2024 11:20 AM EST Office Visit Internal Medicine [place] [address] [facility] [address] Caryn Lowery APRN.PRESALES CONSULTANT [address] [place] [address] Medication follow up up [facility] Comment on above: Medication follow up up Start: 04-17-2024 End: 04-17-2024 Patient encounter procedure 04/17/2024 1:30 PM EST Office Visit Pulmonary Medicine [address] [place] [address] Elle Boone MD [address] [place] [address] Shortness of breath [R06.02] Pulmonary Medicine Comment on above: Shortness of breath [R06.02] Start: 04-17-2024 End: 04-17-2024 ambulatory 04/17/2024 1:00 PM EST Procedure PULM LAB [facility] [address] [place] [address] [facility], Pulm Lab [facility] [address] [place] [address] Shortness of breath [R06.02] [facility] Comment on above: Shortness of breath [R06.02] Start: 04-12-2024 Annual PCP Team Chronic Disease Visit Annual PCP Team Chronic Disease Visit [facility] Start: 04-05-2024 Hemoglobin A1c measurement HbA1C [facility] Start: 03-15-2024 End: 03-15-2024 Patient encounter procedure 03/15/2024 2:20 PM EDT Office Visit [facility] [address] [place] [address] Caryn Lowery APRN.PRESALES CONSULTANT [address] [place] [address] 6 week follow up [facility] [place] Comment on above: 6 week follow up Start: 03-03-2024 Annual PCP Team Chronic Disease Visit Annual PCP Team Chronic Disease Visit [facility] Start: 03-03-2024 BP Controlled (<130/80) BP Controlled (<130/80) [facility] in Start: 02-29-2024 End: 02-29-2024 Patient encounter procedure 02/29/2024 1:40 PM EDT Appointment Cat Scan [address] [place] [address] Shortness of breath [R06.02] [facility] Comment on above: Shortness of breath [R06.02] Start: 02-29-2024 End: 02-29-2024 Patient encounter procedure 02/29/2024 8:40 AM EDT Appointment Cat [facility] [address] [place] [address] Shortness of breath [R06.02] [facility] Comment on above: Shortness of breath [R06.02] Start: 02-26-2024 Hepatitis B surface antibody level LDL Cholesterol [facility] Start: 02-25-2024 End: 05-26-2024 A. FUMIGATUS AB, IGG [facility] Comment on above: Expected: 02/25/2024, Expires: Start: 02-25-2024 End: 05-26-2024 Aspergillus fumigatus IgE Ab [Units/volume] in Serum [facility] Comment on above: Expected: 02/25/2024, Expires: Start: 02-25-2024 End: 05-26-2024 CBC W Auto Differential panel - Blood [facility] Work Phone: Comment on above: Expected: 02/25/2024, Expires: Start: 02-25-2024 End: 05-26-2024 IgE [Units/volume] in Serum or Plasma [facility] Comment on above: Expected: 02/25/2024, Expires: Start: 02-21-2024 End: 02-21-2024 Patient encounter procedure 02/21/2024 2:30 PM EDT Office Visit Orthopaedics [address] [facility] [place] [address] Duran Blunt MD [address] [facility] [place] [address] Right knee pain Orthopaedics Comment on above: Right knee pain Start: 02-02-2024 End: 02-02-2024 Patient encounter procedure 02/02/2024 12:20 PM EDT Office Visit Internal Medicine [facility] [address] [place] [address] Caryn Lowery APRN.PRESALES CONSULTANT [address] [place] [address] 4 week follow up [facility] Comment on above: 4 week follow up Start: 01-31-2024 End: 01-31-2024 Patient encounter procedure 01/31/2024 2:00 PM EDT Office Visit Orthopaedics [address] [place] [address] Duran Blunt MD [address] [place] [facility] [place] [address] Right knee pain Orthopaedics Comment on above: Right knee pain Start: 01-24-2024 End: 01-24-2024 Patient encounter procedure Orthopaedics Comment on above: Right knee pain Right knee pain, uns pecified chronicity [M25.561] Start: 01-21-2024 End: 04-21-2024 Basic metabolic 2000 panel - Serum or Plasma [facility] Work Phone: Comment on above: Expected: 01/21/2024, Expires: Start: 01-16-2024 Covid-19 Vaccine (1 - 2023-24 season) Covid-19 Vaccine () [facility] Start: 01-16-2024 Influenza vaccination Influenza Vaccine (#1) [facility] Start: 01-03-2024 End: 04-03-2024 Basic metabolic 2000 panel - Serum or Plasma [facility] Comment on above: Expected: 01/03/2024, Expires: Start: 01-03-2024 End: 04-03-2024 Magnesium [Mass/volume] in Serum or Plasma [facility] Comment on above: Expected: 01/03/2024, Expires: Start: 01-03-2024 End: 04-03-2024 Natriuretic peptide.B prohormone N-Terminal [Mass/volume] in Serum or Plasma [facility] Work Phone: Comment on above: Expected: 01/03/2024, Expires: Start: 01-03-2024 End: 01-03-2024 Patient encounter procedure 01/03/2024 1:00 PM EDT Office Visit Internal Medicine [place] [address] [place] [address] Caryn Lowery APRN.PRESALES CONSULTANT [address] [place], [place] [id number] 4 week follow up [facility] Comment on above: 4 week follow up Start: 01-01-2024 ANNUAL PCP TEAM CHRONIC DISEASE VISIT ANNUAL PCP TEAM CHRONIC DISEASE VISIT [facility] Start: 12-15-2023 ANNUAL PCP TEAM CHRONIC DISEASE VISIT ANNUAL PCP TEAM CHRONIC DISEASE VISIT [facility] Start: 12-15-2023 BP CONTROLLED (<130/80) BP CONTROLLED (<130/80) [facility] in Start: 12-03-2023 End: 12-03-2023 Patient encounter procedure 12/03/2023 1:40 PM EDT Office Visit [facility] [address] [place] [address] Caryn Lowery APRN.PRESALES CONSULTANT [address] [place], [place] [id number] 2 week follow up [facility] [place] Comment on above: 2 week follow up Start: 11-29-2023 Hemoglobin A1c measurement HbA1C [facility] Start: 11-24-2023 ANNUAL PCP TEAM CHRONIC DISEASE VISIT ANNUAL PCP TEAM CHRONIC DISEASE VISIT [facility] Start: 11-24-2023 BP CONTROLLED (<130/80) BP CONTROLLED (<130/80) [facility] Start: 11-23-2023 End: 02-22-2024 SYPHILIS TOTAL W/REFLEX SYPHILIS TOTAL W/REFLEX Lab Routine STD exposure Expected: 11/23/2023, Expires: 02/22/2024 [facility] Work Phone: Comment on above: Expected: 11/23/2023, Expires: Start: 11-23-2023 End: 11-23-2023 Patient encounter procedure 11/23/2023 1:30 PM EDT Appointment [facility] [address] [place] [address] Epigastric pain [R10.13] [facility] Comment on above: Epigastric pain [R10.13] Start: 11-15-2023 End: 02-14-2024 Bacteria identified in Urine by Culture [facility] Comment on above: Expected: 11/15/2023, Expires: Start: 11-15-2023 End: 11-15-2023 Patient encounter procedure 11/15/2023 1:20 PM EDT Office Visit [facility] [address] [place] [address] Caryn Lowery APRN.PRESALES CONSULTANT [address] [place] [address] Follow up [facility] [place] Comment on above: Follow up Start: 10-29-2023 End: 10-29-2023 Patient encounter procedure 10/29/2023 2:20 PM EDT Office Visit [facility] [address] [place], [place] [address] Caryn Lowery APRN.PRESALES CONSULTANT [address] [place], [place] [address] 2 week follow up [facility] Comment on above: 2 week follow up Start: 10-15-2023 End: 01-14-2024 CBC W Auto Differential panel - Blood CBC + DIFF Lab Routine Essential hypertension Controlled type 2 diabetes mellitus without complication, without long-term current use of insulin (HCC) Expected: 10/15/2023 (Approximate), Expires: 01/14/2024 [facility] Work Phone: Comment on above: Expected: 10/15/2023 (Approximate), Expi res: 01/14/2024 Start: 10-15-2023 End: 01-14-2024 Comprehensive metabolic 2000 panel - Serum or Plasma COMP METABOLIC PANEL Lab Routine Other hyperlipidemia Essential hypertension Controlled type 2 diabetes mellitus without complication, without long-term current use of insulin (HCC) Expected: 10/15/2023 (Approximate), Expires: 01/14/2024 [facility] Work Phone: Comment on above: Expected: 10/15/2023 (Approximate), Expi res: 01/14/2024 Start: 10-15-2023 End: 01-14-2024 Hemoglobin A1c in Blood HGB A1C Lab Routine Controlled type 2 diabetes mellitus without complication, without long-term current use of insulin (HCC) Expected: 10/15/2023 (Approximate), Expires: 01/14/2024 [facility] Work Phone: Comment on above: Expected: 10/15/2023 (Approximate), Expi res: 01/14/2024 Start: 10-15-2023 End: 01-14-2024 Lipid 1996 panel - Serum or Plasma LIPID PANEL BASIC Lab Routine Other hyperlipidemia Expected: 10/15/2023 (Approximate), Expires: 01/14/2024 [facility] Work Phone: Comment on above: Expected: 10/15/2023 (Approximate), Expi res: 01/14/2024 Start: 10-15-2023 End: 01-14-2024 Thyrotropin [Units/volume] in Serum or Plasma TSH BLD Lab Routine Hypothyroidism, unspecified type Expected: 10/15/2023 (Approximate), Expires: 01/14/2024 [facility] Work Phone: Comment on above: Expected: 10/15/2023 (Approximate), Expi res: 01/14/2024 Start: 10-13-2023 End: 01-12-2024 HIV 1+2 Ab [Presence] in Serum or Plasma by Immunoassay [facility] Comment on above: Expected: 10/13/2023, Expires: Start: 10-13-2023 End: 01-12-2024 SYPHILIS TOTAL W/REFLEX [facility] Work Phone: Comment on above: Expected: 10/13/2023, Expires: Start: 08-27-2023 Hemoglobin A1c/Hemoglobin.total in Blood HbA1C [facility] Start: 08-25-2023 ANNUAL PCP TEAM CHRONIC DISEASE VISIT ANNUAL PCP TEAM CHRONIC DISEASE VISIT [facility] Start: 08-25-2023 BP CONTROLLED (<130/80) BP CONTROLLED (<130/80) [facility] in Start: 07-18-2023 ANNUAL PCP TEAM CHRONIC DISEASE VISIT ANNUAL PCP TEAM CHRONIC DISEASE VISIT [facility] Start: 06-30-2023 End: 07-14-2023 COVID & INFLUENZA A/B & RSV NAAT, ROUTINE COVID & INFLUENZA A/B & RSV NAAT, ROUTINE Microbiology Routine URI, acute Expected: 06/30/2023, Expires: 07/14/2023 [facility] Work Phone: Comment on above: Expected: 06/30/2023, Expires: Start: 06-03-2023 BP CONTROLLED (<130/80) BP CONTROLLED (<130/80) [facility] in Start: 05-26-2023 Hemoglobin A1c/Hemoglobin.total in Blood HBA1C [facility] Start: 05-25-2023 ANNUAL PCP TEAM CHRONIC DISEASE VISIT ANNUAL PCP TEAM CHRONIC DISEASE VISIT [facility] Start: 05-25-2023 BP CONTROLLED (<130/80) BP CONTROLLED (<130/80) [facility] in Start: 05-17-2023 Depression Assessment Depression Assessment [facility] Start: 05-03-2023 Anes dx/ther nerve block/injection prone pos ANESTH N BLOCK/INJ PRONE [facility] Start: 05-03-2023 Njx dx/ther sbst intrlmnr lmbr/sac w/img gdn NJX INTERLAMINAR LMBR/SAC [facility] Start: 05-03-2023 Fluoroscopic guidance O.R. Fluoro for C-Arm [facility] Start: 05-03-2023 Radiography of spine [facility] Start: 05-03-2023 Patient discharge [facility] Start: 04-15-2023 ANNUAL PCP TEAM CHRONIC DISEASE VISIT ANNUAL PCP TEAM CHRONIC DISEASE VISIT [facility] Start: 04-15-2023 BP CONTROLLED (<130/80) BP CONTROLLED (<130/80) [facility] Start: 04-08-2023 ANNUAL PCP TEAM CHRONIC DISEASE VISIT ANNUAL PCP TEAM CHRONIC DISEASE VISIT [facility] Start: 03-25-2023 ANNUAL PCP TEAM CHRONIC DISEASE VISIT ANNUAL PCP TEAM CHRONIC DISEASE VISIT [facility] Start: 03-25-2023 BP CONTROLLED (<130/80) BP CONTROLLED (<130/80) [facility] Start: 03-10-2023 Hepatitis B surface antibody level LDL CHOLESTEROL [facility] Start: 02-23-2023 End: 04-25-2023 CBC W Auto Differential panel - Blood CBC + DIFF Lab Routine Controlled type 2 diabetes mellitus without complication, without long-term current use of insulin (HCC) Expected: 02/23/2023 (Approximate), Expires: 04/25/2023 [facility] Work Phone: Comment on above: Expected: 02/23/2023 (Approximate), Expi res: 04/25/2023 Start: 02-23-2023 End: 04-25-2023 Comprehensive metabolic 2000 panel - Serum or Plasma COMP METABOLIC PANEL Lab Routine Other hyperlipidemia Controlled type 2 diabetes mellitus without complication, without long-term current use of insulin (HCC) Expected: 02/23/2023 (Approximate), Expires: 04/25/2023 [facility] Work Phone: Comment on above: Expected: 02/23/2023 (Approximate), Expi res: 04/25/2023 Start: 02-23-2023 End: 04-25-2023 Hemoglobin A1c in Blood HGB A1C Lab Routine Controlled type 2 diabetes mellitus without complication, without long-term current use of insulin (HCC) Expected: 02/23/2023 (Approximate), Expires: 04/25/2023 [facility] Work Phone: Comment on above: Expected: 02/23/2023 (Approximate), Expi res: 04/25/2023 Start: 02-23-2023 End: 04-25-2023 Lipid 1996 panel - Serum or Plasma LIPID PANEL BASIC Lab Routine Other hyperlipidemia Expected: 02/23/2023 (Approximate), Expires: 04/25/2023 [facility] Work Phone: Comment on above: Expected: 02/23/2023 (Approximate), Expi res: 04/25/2023 Start: 02-23-2023 End: 04-25-2023 Thyrotropin [Units/volume] in Serum or Plasma TSH BLD Lab Routine Hypothyroidism, unspecified type Expected: 02/23/2023 (Approximate), Expires: 04/25/2023 [facility] Work Phone: Comment on above: Expected: 02/23/2023 (Approximate), Expi res: 04/25/2023 Start: 02-20-2023 ANNUAL PCP TEAM CHRONIC DISEASE VISIT ANNUAL PCP TEAM CHRONIC DISEASE VISIT [facility] Start: 02-15-2023 Anes dx/ther nerve block/injection prone pos ANESTH N BLOCK/INJ PRONE [facility] Start: 02-15-2023 Njx dx/ther agt pvrt facet jt lmbr/sac 1 level INJ PARAVERT F JNT L/S 1 [facility] Start: 02-15-2023 Njx dx/ther agt pvrt facet jt lmbr/sac 2nd level INJ PARAVERT F JNT L/S 2 [facility] Start: 02-15-2023 Injection of facet joint [facility] Start: 02-15-2023 Injection of spinal epidural space [facility] Start: 02-15-2023 X-ray of lumbosacral spine L/S Spine Min 4 Views [facility] Start: 02-15-2023 Patient discharge [facility] Start: 01-23-2023 ANNUAL PCP TEAM CHRONIC DISEASE VISIT ANNUAL PCP TEAM CHRONIC DISEASE VISIT [facility] Start: 01-23-2023 BP CONTROLLED (<130/80) BP CONTROLLED (<130/80) [facility] Start: 01-15-2023 Influenza vaccination [facility] Start: 2023 COLOGUARD (FIT-DNA) COLOGUARD (FIT-DNA) [facility] Start: [address] COLONOGRAPHY [facility] Start: 2023 FECAL OCCULT BLOOD FECAL OCCULT BLOOD [facility] Start: 2023 Screening for malignant neoplasm of colon [facility] Start: 2023 SIGMOIDOSCOPY SIGMOIDOSCOPY [facility] Start: 01-04-2023 Anes dx/ther nerve block/injection prone pos ANESTH N BLOCK/INJ PRONE [facility] Start: 01-04-2023 Njx dx/ther sbst intrlmnr lmbr/sac w/img gdn NJX INTERLAMINAR LMBR/SAC [facility] Start: 01-04-2023 Injection using fluoroscopic guidance [facility] Start: 01-04-2023 Patient discharge [facility] Start: 12-22-2022 ANNUAL PCP TEAM CHRONIC DISEASE VISIT ANNUAL PCP TEAM CHRONIC DISEASE VISIT [facility] Start: 12-19-2022 BP CONTROLLED (<130/80) BP CONTROLLED (<130/80) [facility] Start: 12-10-2022 Hemoglobin A1c/Hemoglobin.total in Blood HBA1C [facility] Start: 10-20-2022 ANNUAL PCP TEAM CHRONIC DISEASE VISIT ANNUAL PCP TEAM CHRONIC DISEASE VISIT [facility] Start: 10-20-2022 BP CONTROLLED (<130/80) BP CONTROLLED (<130/80) [facility] Start: 10-09-2022 Hepatitis B surface antibody level LDL CHOLESTEROL [facility] Start: 10-03-2022 Urine microalbumin profile [facility] Start: 09-08-2022 Hemoglobin A1c/Hemoglobin.total in Blood HBA1C [facility] Start: 08-24-2022 End: 10-24-2022 Magnesium [Mass/volume] in Serum or Plasma [facility] Work Phone: Comment on above: Expected: 08/24/2022, Expires: Start: 08-24-2022 End: 10-24-2022 Thyrotropin [Units/volume] in Serum or Plasma [facility] Work Phone: Comment on above: Expected: 08/24/2022, Expires: 3 Start: 08-24-2022 End: 10-24-2022 Thyroxine (T4) free [Mass/volume] in Serum or Plasma [facility] Work Phone: Comment on above: Expected: 08/24/2022, Expires: 3 Start: 08-24-2022 End: 10-24-2022 Triiodothyronine (T3) [Mass/volume] in Serum or Plasma [facility] Work Phone: Comment on above: Expected: 08/24/2022, Expires: 3 Start: 08-03-2022 Injection of spinal epidural space [facility] Start: 08-03-2022 Injection using fluoroscopic guidance [facility] Start: 08-03-2022 Patient discharge [facility] Start: 07-23-2022 Hemoglobin A1c/Hemoglobin.total in Blood HBA1C [facility] Start: 07-17-2022 End: 09-16-2022 CBC W Auto Differential panel - Blood [facility] Work Phone: Comment on above: Expected: 07/17/2022, Expires: 3 Start: 07-17-2022 End: 09-16-2022 Comprehensive metabolic 2000 panel - Serum or Plasma [facility] Work Phone: Comment on above: Expected: 07/17/2022, Expires: 3 Start: 07-16-2022 BP CONTROLLED (<130/80) BP CONTROLLED (<130/80) [facility] in Start: 07-03-2022 ANNUAL PCP TEAM CHRONIC DISEASE VISIT ANNUAL PCP TEAM CHRONIC DISEASE VISIT [facility] Start: 07-03-2022 COVID-19 VACCINE (#1) COVID-19 VACCINE (#1) [facility] Comment on above: Postponed from 1983 (Declined at t his time) Postponed from 07/12 (Declined at this time) Start: 07-03-2022 COVID-19 VACCINE (1) COVID-19 VACCINE (1) [facility] Comment on above: Postponed from 1983 (Declined at t his time) Start: 07-03-2022 SPIROMETRY SPIROMETRY [facility] Comment on above: Postponed from 01/10/1996 (Declined at t his time) Start: 05-25-2022 End: 07-25-2022 CBC W Auto Differential panel - Blood CBC + DIFF Lab Routine Epigastric pain Decreased appetite Nausea Dizziness Expected: 05/25/2022, Expires: 07/25/2022 [facility] Work Phone: Comment on above: Expected: 05/25/2022, Expires: 3 Start: 05-25-2022 End: 07-25-2022 Comprehensive metabolic 2000 panel - Serum or Plasma COMP METABOLIC PANEL Lab Routine Epigastric pain Decreased appetite Nausea Dizziness Expected: 05/25/2022, Expires: 07/25/2022 [facility] Work Phone: Comment on above: Expected: 05/25/2022, Expires: 3 Start: 05-25-2022 End: 07-25-2022 Hemoglobin A1c in Blood HGB A1C Lab Routine Controlled type 2 diabetes mellitus without complication, without long-term current use of insulin (HCC) Expected: 05/25/2022, Expires: 07/25/2022 [facility] Work Phone: Comment on above: Expected: 05/25/2022, Expires: 3 Start: 05-17-2022 DEPRESSION ASSESSMENT DEPRESSION ASSESSMENT [facility] Start: 03-25-2022 End: 05-25-2022 Amylase [Enzymatic activity/volume] in Serum or Plasma AMYLASE BLD Lab Routine RUQ pain Nausea Epigastric pain Diarrhea, unspecified type Expected: 03/25/2022, Expires: 05/25/2022 [facility] Work Phone: Comment on above: Expected: 03/25/2022, Expires: 3 Start: 03-25-2022 End: 05-25-2022 CBC W Auto Differential panel - Blood CBC + DIFF Lab Routine RUQ pain Epigastric pain Diarrhea, unspecified type Expected: 03/25/2022, Expires: 05/25/2022 [facility] Work Phone: Comment on above: Expected: 03/25/2022, Expires: 3 Start: 03-25-2022 End: 05-25-2022 Comprehensive metabolic 2000 panel - Serum or Plasma COMP METABOLIC PANEL Lab Routine RUQ pain Nausea Epigastric pain Diarrhea, unspecified type Expected: 03/25/2022, Expires: 05/25/2022 [facility] Work Phone: Comment on above: Expected: 03/25/2022, Expires: 3 Start: 03-25-2022 End: 05-25-2022 Lipase [Enzymatic activity/volume] in Serum or Plasma LIPASE BLD Lab Routine RUQ pain Nausea Epigastric pain Diarrhea, unspecified type Expected: 03/25/2022, Expires: 05/25/2022 [facility] Work Phone: Comment on above: Expected: 03/25/2022, Expires: 3 Start: 03-02-2022 Colonoscopy COLONOSCOPY [facility] Start: 03-02-2022 COLORECTAL CANCER SCREENING COLORECTAL CANCER SCREENING [facility] Start: 03-02-2022 Screening for malignant neoplasm of colon [facility] Start: 02-20-2022 End: 04-22-2022 CBC W Auto Differential panel - Blood CBC + DIFF Lab Routine Controlled type 2 diabetes mellitus without complication, without long-term current use of insulin (HCC) Expected: 02/20/2022, Expires: 04/22/2022 [facility] Work Phone: Comment on above: Expected: 02/20/2022, Expires: 2 Start: 02-20-2022 End: 04-22-2022 Comprehensive metabolic 2000 panel - Serum or Plasma COMP METABOLIC PANEL Lab Routine Controlled type 2 diabetes mellitus without complication, without long-term current use of insulin (HCC) Other hyperlipidemia Expected: 02/20/2022, Expires: 04/22/2022 [facility] Work Phone: Comment on above: Expected: 02/20/2022, Expires: 2 Start: 02-20-2022 End: 04-22-2022 Hemoglobin A1c in Blood HGB A1C Lab Routine Controlled type 2 diabetes mellitus without complication, without long-term current use of insulin (HCC) Expected: 02/20/2022, Expires: 04/22/2022 [facility] Work Phone: Comment on above: Expected: 02/20/2022, Expires: 2 Start: 02-20-2022 End: 04-22-2022 Lipid 1996 panel - Serum or Plasma LIPID PANEL BASIC Lab Routine Other hyperlipidemia Expected: 02/20/2022, Expires: 04/22/2022 [facility] Work Phone: Comment on above: Expected: 02/20/2022, Expires: 2 Start: 02-20-2022 End: 04-22-2022 Thyrotropin [Units/volume] in Serum or Plasma TSH BLD Lab Routine Hypothyroidism, unspecified type Expected: 02/20/2022, Expires: 04/22/2022 [facility] Work Phone: Comment on above: Expected: 02/20/2022, Expires: 2 Start: 01-15-2022 Influenza vaccination [facility] Start: 12-31-2021 Hemoglobin A1c/Hemoglobin.total in Blood HBA1C [facility] Start: 11-11-2021 Adult depression screening assessment DEPRESSION SCREENING [facility] Start: 10-15-2021 Hepatitis B surface antibody level LDL CHOLESTEROL [facility] Start: 10-07-2021 End: 12-07-2021 SCHEDULE LAB TESTING SCHEDULE LAB TESTING Lab Routine Expected: 10/07/2021, Expires: 12/07/2021 [facility] Work Phone: Comment on above: Expected: 10/07/2021, Expires: 2 Start: 05-17-2021 DEPRESSION ASSESSMENT DEPRESSION ASSESSMENT [facility] Start: 04-23-2021 Pneumococcal vaccination Pneumococcal Vaccine (2 - PPSV23 or PCV20) [facility] Start: 01-10-2020 PAP TESTING PAP TESTING [facility] Start: 2018 Mammography [facility] Start: 2018 Screening for malignant neoplasm of breast Mammogram Screening [facility] Start: 08-23-2013 HPV TESTING HPV TESTING [facility] Start: 08-23-2013 PAP TESTING PAP TESTING [facility] Start: 08-23-2013 Screening for malignant neoplasm of cervix Cervical Cancer Screening [facility] Start: 01-10-2008 Zoledronic acid therapy ALPHA-1 ANTITRYPSIN DEFICIENCY SCREENING [facility] Start: 1997 HEPATITIS B (1 of 3 - Risk 3-dose series) HEPATITIS B (1 of 3 - Risk 3-dose series) [facility] Start: 1997 Hepatitis B Vaccine (1 of 3 - 19+ 3-dose series) Hepatitis B Vaccine (1 of 3 - 19+ 3-dose series) [facility] Start: 01-10-1996 BP CONTROLLED (<130/80) BP CONTROLLED (<130/80) [facility] in Start: 01-10-1996 Depression Screening Depression Screening [facility] Start: 01-10-1996 SPIROMETRY SPIROMETRY [facility] Start: 01-10-1984 PNEUMOCOCCAL (1 - PCV) PNEUMOCOCCAL (1 - PCV) [facility] Start: 1978 COVID-19 VACCINE (#1) COVID-19 VACCINE (#1) [facility] Start: 1978 HEPATITIS B (1 of 3 - 3-dose series) HEPATITIS B (1 of 3 - 3-dose series) [facility] Start: 1978 Hepatitis B Vaccine (1 of 3 - 3-dose series) Hepatitis B Vaccine (1 of 3 - 3-dose series) [facility] Bacteria identified in Unspecified specimen by Respiratory culture RESPIRATORY CULTURE AND STAIN Microbiology Routine Shortness of breath Cough, unspecified type Wheezing Low O2 saturation Ordered: 02/17/2024 [facility] Work Phone: Comment on above: Ordered: 02/17/2024 Bacteria identified in Wound by Culture ABSCESS AND WOUND CULTURE WITH GRAM STAIN Microbiology Routine Boil Ordered: 04/01/2024 [facility] Work Phone: Comment on above: Ordered: 04/01/2024 C reactive protein [Mass/volume] in Serum or Plasma [facility] CBC W Auto Different ial panel - Blood [facility] Celiac disease screen [facility] Chlamydia trachomatis+Neisseria gonorrhoeae DNA [Presence] in Unspecified specimen by PREETI with probe detection GONORRHEA/CHLAMYDIA NAAT Lab Routine STD exposure 10/13/2023 12:16 PM EDT [facility] Clostridioides diffi cile toxin genes [Presence] in Stool by PREETI with probe detection C. DIFFICILE PCR Lab Routine Epigastric pain Vomiting and diarrhea 11/15/2023 9:56 PM EDT [facility] End: 06-17-2023 COLONOSCOPY DIAGNOSTIC COLONOSCOPY DIAGNOSTIC Endoscopy Routine Rectal bleeding Diarrhea, unspecified type 1 Occurrences starting 06/17/2022 until 06/17/2023 [facility] Work Phone: Comment on above: 1 Occurrences starting 06/17/2022 until 06/17/2023 COVID & INFLUENZA A/ B & RSV PCR, ROUTINE COVID & INFLUENZA A/B & RSV PCR, ROUTINE Microbiology Routine Shortness of breath Cough, unspecified type Wheezing Malaise 02/02/2024 12:57 PM EDT [facility] End: 05-08-2023 Ct abdomen & pelvis w/contrast material CT ABD/PEL W IVCON Radiology STAT Left lower quadrant abdominal pain 1 Occurrences starting 04/08/2022 until 05/08/2023 [facility] Work Phone: Comment on above: 1 Occurrences starting 04/08/2022 until 05/08/2023 End: 03-18-2025 CT Chest W contrast IV CT CHEST W IVCON Radiology Routine Shortness of breath Cough, unspecified type Wheezing Low O2 saturation 1 Occurrences starting 02/17/2024 until 03/18/2025 [facility] Comment on above: 1 Occurrences starting 02/17/2024 until 03/18/2025 CT Chest W contrast IV CT CHEST W IVCON Radiology Routine Shortness of breath Cough, unspecified type Wheezing Low O2 saturation 02/29/2024 2:25 PM EDT [facility] Work Phone: End: 02-03-2025 CTA Pulmonary arteries for pulmonary embolus W contrast IV CT CHEST W IVCON PE Radiology STAT Chest pain, unspecified type Shortness of breath Palpitations Elevated d-dimer 1 Occurrences starting 01/05/2024 until 02/03/2025 [facility] Work Phone: Comment on above: 1 Occurrences starting 01/05/2024 until 02/03/2025 End: 11-10-2025 CTA Pulmonary arteries for pulmonary embolus W contrast IV CTA CHEST (NONGATED) W IVCON PE Radiology STAT Chest pain, unspecified type SOB (shortness of breath) Elevated d-dimer 1 Occurrences starting 10/11/2024 until 11/10/2025 [facility] Work Phone: Comment on above: 1 Occurrences starting 10/11/2024 until 11/10/2025 End: 12-30-2024 DBT Breast - bilateral screening JET SCREENING [facility] Radiology Routine Encounter for screening mammogram for breast cancer 1 Occurrences starting 12/01/2023 until 12/30/2024 [facility] Work Phone: Comment on above: 1 Occurrences starting 12/01/2023 until 12/30/2024 End: 11-30-2025 DBT Breast - bilateral screening JET SCREENING [facility] Radiology Routine Encounter for screening mammogram for breast cancer 1 Occurrences starting 10/31/2024 until 11/30/2025 [facility] Work Phone: Comment on above: 1 Occurrences starting 10/31/2024 until 11/30/2025 End: 08-25-2023 Echocardiography ECHO Cardiology Routine Shortness of breath Chest pain, unspecified type 1 Occurrences starting 08/24/2022 until 08/25/2023 [facility] Work Phone: Comment on above: 1 Occurrences starting 08/24/2022 until 08/25/2023 End: 06-03-2023 EGD DIAGNOSTIC EGD DIAGNOSTIC Endoscopy Routine Nausea Epigastric pain Decreased appetite 1 Occurrences starting 06/03/2022 until 06/03/2023 [facility] Work Phone: Comment on above: 1 Occurrences starting 06/03/2022 until 06/03/2023 End: 06-17-2023 EGD DIAGNOSTIC EGD DIAGNOSTIC Endoscopy Routine Epigastric pain Nausea and vomiting, unspecified vomiting type 1 Occurrences starting 06/17/2022 until 06/17/2023 [facility] Work Phone: Comment on above: 1 Occurrences starting 06/17/2022 until 06/17/2023 End: 03-07-2025 EMG(NEURO/NI) EMG(NEURO/NI) EMG Routine 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 right upper extremity 1 Occurrences starting 03/07/2024 until 03/07/2025 [facility] Work Phone: Comment on above: 1 Occurrences starting 03/07/2024 until 03/07/2025 ENTERIC BACTERIAL PA DIONTE BY PCR ENTERIC BACTERIAL PANEL BY PCR Lab Routine Epigastric pain Vomiting and diarrhea 11/16/2023 4:10 AM EDT [facility] Erythrocyte sediment ation rate [facility] EXTRA ECOFIX CONTAIN ER PERFORMABLE EXTRA ECOFIX CONTAINER PERFORMABLE Lab Routine Epigastric pain 11/16/2023 4:10 AM EDT [facility] Imaging of liver [facility] Immunoglobulin measurement [facility] LAB EXTRA TUBES LAB EXTRA TUBES Lab Routine Epigastric pain 11/16/2023 4:10 AM EDT [facility] Lactate dehydrogenas e measurement [facility] End: 01-29-2024 [facility] SCREENING [facility] SCREENING Radiology Routine Encounter for screening mammogram for breast cancer 1 Occurrences starting 12/30/2022 until 01/29/2024 [facility] Work Phone: Comment on above: 1 Occurrences starting 12/30/2022 until 01/29/2024 Measurement of respiratory function [facility] Patient Education ED Abscess Inc ision And Drainage ED Cellulitis [facility] Work Phone: Patient referral [facility] Work Phone: Radionuclide gastric emptying study [facility] Radionuclide imaging of liver and/or biliary tract using radioactive isotope [facility] End: 02-27-2023 Screening mammography bi 2-view breast inc cad [facility] SCREENING Radiology Routine Encounter for screening mammogram for breast cancer 1 Occurrences starting 01/28/2022 until 02/27/2023 [facility] Work Phone: Comment on above: 1 Occurrences starting 01/28/2022 until 02/27/2023 Serum immunofixation [facility] US Abdomen limited [facility] End: 12-14-2024 US Abdomen RUQ US ABD RIGHT UPPER QUADRANT Radiology [place] Epigastric pain Vomiting and diarrhea 1 Occurrences starting 11/15/2023 until 12/14/2024 [facility] Work Phone: Comment on above: 1 Occurrences starting 11/15/2023 until 12/14/2024 End: 04-24-2023 Us abdominal real time w/image limited US ABD RT UPPER QUADRANT Radiology Routine RUQ pain Nausea Epigastric pain Diarrhea, unspecified type 1 Occurrences starting 03/25/2022 until 04/24/2023 [facility] Work Phone: Comment on above: 1 Occurrences starting 03/25/2022 until 04/24/2023 End: 08-25-2023 US LEG VEIN DVT UNL VAS LAB US LEG VEIN DVT UNL VAS LAB Vascular Lab Routine Left leg swelling Left leg pain 1 Occurrences starting 08/24/2022 until 08/25/2023 [facility] Work Phone: Comment on above: 1 Occurrences starting 08/24/2022 until 08/25/2023 End: 03-03-2025 XR Chest PA and Lateral XR CHEST 2V FRONTAL/LAT Radiology Routine Shortness of breath Cough, unspecified type Wheezing Acute sinusitis, recurrence not specified, unspecified location 1 Occurrences starting 02/02/2024 until 03/03/2025 [facility] Work Phone: Comment on above: 1 Occurrences starting 02/02/2024 until 03/03/2025 End: 02-17-2025 XR Knee - right 4 Views XR KNEE GENERAL 4V AP BOTH/PA BOTH/LAT/MERC RIGHT Radiology Routine Right knee pain, unspecified chronicity 1 Occurrences starting 01/19/2024 until 02/17/2025 [facility] Work Phone: Comment on above: 1 Occurrences starting 01/19/2024 until 02/17/2025 [facility] Immunizations Immunization Date Immunization Notes Care Provider Fa [facility] 04-28-2024 influenza, seasonal, injectable Caryn Older ADMINISTRATOR HEALTH CARE FACILITY.PRESALES CONSULTANT Work Phone: [facility] 04-28-2024 pneumococcal conjuga te (PCV20) vaccine, 20 valent (PREVNAR 20) Caryn Older ADMINISTRATOR HEALTH CARE FACILITY.PRESALES CONSULTANT Work Phone: [facility] 04-28-2024 pneumococcal Conjuga te, unspecified formulation Caryn Older ADMINISTRATOR HEALTH CARE FACILITY.PRESALES CONSULTANT Work Phone: [facility] Work Phone: 04-28-2024 influenza virus vaccine, unspecified formulation Caryn Older ADMINISTRATOR HEALTH CARE FACILITY.PRESALES CONSULTANT Work Phone: [facility] 06-02-2023 influenza, injectabl e, quadrivalent, contains preservative Babar Phillip MD Work Phone: [facility] 06-02-2023 influenza virus vaccine, unspecified formulation Caryn Older ADMINISTRATOR HEALTH CARE FACILITY.PRESALES CONSULTANT Work Phone: [facility] 02-20-2022 influenza, injectabl e, quadrivalent, contains preservative Caryn Older ADMINISTRATOR HEALTH CARE FACILITY.PRESALES CONSULTANT Work Phone: [facility] 02-20-2022 influenza virus vaccine, unspecified formulation Caryn Older ADMINISTRATOR HEALTH CARE FACILITY.PRESALES CONSULTANT Work Phone: [facility] 02-26-2021 pneumococcal conjuga te vaccine, [address] Babar Phillip Work Phone: [facility] 02-16-2020 influenza, injectabl e, quadrivalent, contains preservative Duran Blunt MD Work Phone: [facility] 10-03-2012 tetanus toxoid, redu anne diphtheria toxoid, and acellular pertussis vaccine, adsorbed Duran Blunt MD Work Phone: [facility] Payers Date Payer Category Payer Self-pay [id number] 2022 Unknown [id number] 2017 Medicaid [place] [employer] [place] [employer] [id number] 2017-Present [phone] [address] [place] [address] Medicaid [id number] 2017 Medicaid [id number] 2008 Unknown [id number] 2008 Unknown [facility] [id number] 1978 Unknown [id number] 1978 Unknown [id number] 1978 Unknown [id number] 1978 Unknown [id number] 1978 Unknown [id number] Unknown [id number] Unknown [id number] Unknown [id number] Unknown [id number] Unknown [id number] Unknown [id number] Social History Date Type Detail Facility Start: 05-17-1992 End: 02-21-2024 Tobacco smoking status NHIS Smokes tobacco daily [facility] Work Phone: Start: 05-17-1992 History of tobacco use Cigarette Smo ker [facility] Start: 11-12-2020 End: 08-25-2021 Alcohol intake Current drinker of alcohol (finding) [facility] Start: 03-22-2020 End: 02-14-2022 History SDOH Alcohol Frequency 2 [facility] Start: 03-22-2020 End: 02-14-2022 History SDOH Alcohol Std Drinks 1 [facility] Start: 03-31-2011 History SDOH Alcohol Comment Seldom- uses once every couple months [facility] Start: 04-25-2019 End: 03-22-2020 History SDOH Social Connections Phone 5 [facility] Start: 03-22-2020 End: 05-24-2022 History SDOH Social Connections [facility] Start: 04-25-2019 History SDOH Social Connections Living 8 [facility] Start: 04-25-2019 End: 05-24-2022 History SDOH Physical Activity DPW 3 [facility] Start: 11-14-2019 Education 12 [facility] Start: 1980 Sex Assigned At Female C [facility] Start: 10-13-2020 End: 01-22-2022 Exposure to SARS-CoV-2 (event) Not sure [facility] Work Phone: Start: 10-10-2021 End: 10-20-2021 Exposure to SARS-CoV-2 (event) Unable to assess [facility] Start: 03-26-2017 End: 11-23-2022 Cigarettes smoked current (pack per day) - Reported 0.5 [facility] Start: 03-26-2017 End: 02-21-2024 Tobacco use and exposure Smokeless tobacco non-user [facility] Work Phone: Start: 02-19-2021 End: 07-14-2023 Tobacco smoking status Heavy tobacco smoker (finding) [facility] Sex Assigned At [facility] Start: 06-03-2022 End: 12-25-2024 Alcohol intake Ex-drinker (finding) [facility] Start: 07-27-2022 End: 05-13-2023 Tobacco smoking status NHIS Unknown if ever smoked [facility] Start: 12-13-2019 None [facility] Start: 05-24-2019 Spouse/ Signif icant Other [facility] Start: 12-22-2019 Cigarettes [facility] Start: 05-24-2022 End: 11-23-2022 Social connection and isolation panel [facility] Start: 04-17-2012 Frequency of Communication with Friends and Family Not on file [facility] (I/We) worried wheth er (my/our) food would run out before (I/we) got money to buy more. DK or Refused [facility] Start: 08-19-2018 Gender identity Identifies as female gender (finding) [facility] Start: 08-19-2018 Sexual orientation Heterosexual (marivel logan) [facility] Do you feel stress - tense, restless, nervous, or anxious, or unable to sleep at night because your mind is troubled all the time - these days [OSQ] To some extent [facility] Start: 08-19-2017 Occasional [facility] Do you belong to any clubs or organizations such as yarsani groups, unions, fraternal or athletic groups, or school groups? Yes [facility] How often to you hav e a drink containing alcohol? Monthly or less [facility] How many standard drinks containing alcohol do you have on a typical day? 1 or 2 [facility] (I/We) worried wheth er (my/our) food would run out before (I/we) got money to buy more. Never true [facility] In the past 12 month s, was there a time when you were not able to pay the mortgage or rent on time? No [facility] Are you now , , , , never or living with a partner? Living with partner [facility] How often to you hav e a drink containing alcohol? Never [facility] How hard is it for y ou to pay for the very basics like food, housing, medical care, and heating Not very hard [facility] Do you feel stress - tense, restless, nervous, or anxious, or unable to sleep at night because your mind is troubled all the time - these days [OSQ] Rather much [facility] Start: 02-21-2024 Tobacco Comment 02/2024 - down to 5 or 6 per day [facility] Start: 12-09-2013 Sex Female (finding) [facility] NEGATED: Highlighted row [facility] Medical Equipment Procedure Code Equipment Code Equipment Original Text Equipment Identifier Dates [id number], [id number], [id number], [id number] Start: 05-22-2022 End: 07-29-2023 Comment on above: Test blood sugar(s) 4 times daily. Dx: Type 2 DM - Controlled E11.9 Insulin: No Test blood sugar(s) 4 times daily. Goals Date Patient Goal Desired Activity /State Functional Status Date Assessment Result Facility 01-04-2024 Functional Status Independent [facility] 01-04-2024 Functional Status Ambulation in [facility] 07-14-2023 Functional Status Standard Safet y ID band on, Allergy Band on, Call device within reach, Bed in low position, Wheels locked, Upper/Half-Length side-rails up, Bedside Cart Locked, Safety level maintained [facility] 01-11-2023 Functional Status Independent [facility] 10-26-2014 Are you deaf, or do you have serious difficulty hearing Yes 10/26/2014 12:38 PM Katie Gibbons MA Yes [facility] 10-26-2014 Are you blind, or do you have serious difficulty seeing, even when wearing glasses No 10/26/2014 12:38 PM Katie Gibbons MA No [facility] 10-26-2014 Do you have serious difficulty walking or climbing stairs No 10/26/2014 12:38 PM Katie Gibbons MA No [facility] 10-26-2014 Do you have difficul ty dressing or bathing No 10/26/2014 12:38 PM Katie Gibbons MA No [facility] 10-26-2014 Because of a physica l, mental, or emotional condition, do you have difficulty doing errands alone such as visiting a physician's office or shopping No 10/26/2014 12:38 PM Katie Gibbons MA No [facility] Mental Status Date Assessment Result Facility 01-04-2024 Mental Status Orientation Oriented x 4 [facility] 01-04-2024 Mental Status [facility] 07-14-2023 Mental Status Orientation Oriented x 4 [facility] 05-03-2023 Cognitive function Voice/Name [facility] Work Phone: 05-03-2023 Cognitive function Patient Fernanda antoine Person;Place;Time [facility] Work Phone: 02-15-2023 Cognitive function Voice/Name [facility] Work Phone: 01-11-2023 Mental Status Oriented x 4 [facility] 01-04-2023 Cognitive function Voice/Name [facility] Work Phone: 08-03-2022 Cognitive function Voice/Name [facility] Work Phone: 10-26-2014 Because of a physica l, mental, or emotional condition, do you have serious difficulty concentrating, remembering, or making decisions No 10/26/2014 12:38 PM EDT Katie Moon MA No [facility] Clinical Notes 02-23-2018 to 12-26-2024 Patient Caryn Omer APRN.[facility] - 12/25/2024 3:10 PM EDTSYolanda kim APRN.PRESALES CONSULTANT - 12/24/2024 3:02 PM EDTTelephone Encounter - Hope Dickey LPN - 11/21/2024 1:10 PM EDT Note Date & Type Note Facility 12-26-2024 Note [facility] 12-26-2024 Note [facility] 12-25-2024 Instructions Caryn Lowery APRN.PRESALES CONSULTANT - 12/25/2024 3:20 PM EDT - Continue [...] and likely drainage. documented in this encounter [facility] 12-25-2024 Note [facility] 12-25-2024 History of Present illness Narrative CC: Patient presents with: Recheck: ER follow up, Breast abcess HPI Darren Reinoso is a 44 year old female who presents today for breast abscess follow up. Was seen in office 3 days ago on Wednesday and since then was in [facility] on Wednesday, urgent care on Wednesday and then [facility] last night. Recording using PHARMAJET software for draft documentation of the visit was discussed with the patient/authorized technical services representative; all questions welcomed and answered. Patient/authorized technical services representative agreed to proceed Breast Infection: - Initial visit on Wednesday; started on doxycycline. - Marked area of infection; noted to have spread beyond the marked area. - Visited [facility] ER on Wednesday when patient noticed the redness extending beyond boundaries; per patient, no treatment provided and no new medications started. - Visited [facility] last night; additional antibiotic (cephalexin) prescribed, [...] N-Acetaminophen], Propoxyphene, and Sulfa (Sulfonamide Antibiotics) MEDICATIONS pcvlfjmp-nxvomclun-jixijwbtvmjret (CORTISPORIN) 3.5-10,000-1 mg/mL-unit/mL-% otic suspension^Use 4 drops [...] 30 tablet^Rfl: 0 flash glucose scanning reader ([employer] ANA PAULA 2 READER)^1 Each once daily.^Disp: [...] Screening Discontinued DATA REVIEWED: Outside chart from [facility] reviewed. Assessment/Plan 1. Abscess (L02.91) 2. Wound [...] so. Even tried to get appointment with [facility] for earlier evaluation but unable. [...] Patient agreeable to treatment plan. Caryn Lowery, LILI.PRESALES CONSULTANT [1] Past Medical History: No date: Adjustment [...] Age of Onset: (Not Specified) Problem: other ([place]) Relation: Paternal Aunt Age of Onset: (Not [...] past 10 yrs. documented in this encounter [facility] 12-24-2024 Note [facility] 12-24-2024 History of Present illness Narrative [...] N-Acetaminophen], Propoxyphene, and Sulfa (Sulfonamide Antibiotics) MEDICATIONS sofvyeys-gqnnxwsmw-orrtothzywbyux (CORTISPORIN) 3.5-10,000-1 mg/mL-unit/mL-% otic suspension Use 4 [...] min after dose flash glucose scanning reader ([employer] ANA PAULA 2 READER) 1 Each once [...] 2:[address] Gary in the [facility] office for further evaluation. - Advised to seek emergency care if fever or tachycardia develops, or if condition worsens prior to scheduled surgery consult. - Instructed to follow up with primary care provider as scheduled on Wednesday at 2:45 PM at scheduled. and Recording using ambient Kiromic software for draft documentation of the visit was discussed with the patient/authorized technical services representative; all questions welcomed and answered. Patient/authorized technical services representative agreed to proceed Differential Diagnoses - [...] Age of Onset: (Not Specified) Problem: other ([place]) Relation: Paternal Aunt Age of Onset: (Not [...] past 10 yrs. documented in this encounter [facility] 12-23-2024 Hospital Discharge instructions Patient [...] or higher after 2 days on antibiotics [id number] [employer] [place] [address], [place] [address]. All rights reserved. This information is not intended as a substitute for professional medical care. Always follow your healthcare professional's instructions. Follow Up Care 12/23/2024 17:28:37 With:BABAR PHILLIP MD Address: [address] [place] [address]- When:2-4 days [facility] Evelia Kelly 12-23-2024 Note Discharge Instructions Thank you for allowing [facility] to assist you with your healthcare needs. The following is important discharge information regarding your hospital visit. Diagnosis from Today's Visit Cellulitis What to Do Next Instructions from Your Care Team No qualifying data available. Post Acute Orders No qualifying data available. You Need to Schedule the Following Appointments Follow Up with BABAR PHILLIP MD When:Within 2-4 days Where:[address] [place] [address]- Allergies amoxicillin codeine penicillin sulfa [...] or higher after 2 days on antibiotics [id number] [employer]. [address] [place] [address], [place] [address]. All rights reserved. This information is not intended as a substitute for professional medical care. Always follow your healthcare professional's instructions. Additional Information VACCINATE! IT SAVES LIVES! Members of the community who have not yet received the COVID-19 vaccine and would like to receive it can visit one of [facility] vaccine clinics. There are many vaccine clinic locations within the [facility]. For locations and available times, please visit [email or web address] It is important to note that some COVID mobile vaccine clinics are held outdoors and may be canceled in rainy or stormy conditions. To learn more about pediatric vaccinations (ages 5-11), we invite you to visit the [employer] [facility] webpage. [email or web address] [email or web address]-[email or web address]-[email or web address] vppx-[email or web address]-[email or web address].html To learn more about the COVID-19 vaccine, we invite you to visit the CDC website for a list of frequently asked questions. https://www.cdc.gov/coronavirus/2 019-ncov/vaccines/faq.html [facility] Patient Portal Access Instructions: Stay connected with your healthcare team and access your personal medical information anytime with the [facility] Patient Portal. If you would like a full copy of your medical records please contact the [facility] Medical Records Department Wednesday through Wednesday between 8a.m. and 4:30p.m. Please follow the directions below to access the portal: 1.Access the email account you provided upon registration to the hospital.2.Look for an invitation email from [facility].3.Open the email and access the invitation link: Accept Invitation to [facility]4.Fill in the required brewster to create your account. Sign into [email or web address] with your username and password that you [...] you will allow to register on the [facility] Patient Portal for access to your information. You can also access the [facility] Patient Portal on the [email or web address] dominguez. Simply click on Health Records under Health Data and then click on the [email or web address] logo. HOW TO SAFELY DISPOSE OF PRESCRIPTION [...] Call your local pharmacy or go to [email or web address] to find one close to you.3.Make use of household items: Use cat litter or old coffee grounds to dispose medications if other options are not available. Mix your drugs with these household products, seal them in an airtight container and throw it into the garbage. Call [facility]: [phone] to be sure your drugs can be [...] aware that I should contact my doctor. Patient/Tier Over Signature: Date/Time: Relationship to Patient: ____ Witness Name/Signature: Date/Time: [facility] 12-22-2024 Note [facility] 12-21-2024 Note [facility] 11-21-2024 Telephone encounter Note The patient [...] Dickey LPN November 21, 2024 1:10 PM [facility] 11-21-2024 Miscellaneous Notes The patient [...] 2024 1:10 PM documented in this encounter [facility] 11-20-2024 Note [facility] 11-20-2024 History of Present illness Narrative [...] min after dose flash glucose scanning reader ([employer] ANA PAULA 2 READER) 1 Each once [...] Problems Paternal Grandfather Cancer Paternal Aunt other ([place]) Paternal Aunt Great aunt Colon Cancer No [...] Caryn Lowery APRN.CNP documented in this encounter [facility] 10-26-2024 Telephone encounter Note The [...] week. Discard Pen After Tete Gonzalez RN [facility] 10-26-2024 Miscellaneous Notes The patient [...] Tete Gonzalez RN documented in this encounter [facility] 10-20-2024 Caryn Bates APRN.PRESALES CONSULTANT - 10/20/2024 11:50 AM EDT - Stop the second antibiotic that is causing stomach upset; you have already finished the Z-Dakota. - Continue taking naproxen as prescribed for your pulled muscle pain. - Begin the prescribed prednisone taper (prescription sent to [place]) to reduce inflammation and help your breathing; [...] have new concerns. documented in this encounter [facility] 10-20-2024 Note [facility] 10-20-2024 History of Present illness Narrative CC: Patient presents with: Recheck: ER follow up HPI Darren Reinoso is a 44 year old female who presents today for Er follow up. Went to [facility] ER after having concerns of chest and shoulder pain with SOB cough and ill symptoms. Had elevated D-dimer as outpt. Sputum cx did show gram + bacteria so with symptoms did start treatment for possible pneumonia while waiting for other results. Recording using PHARMAJET software for draft documentation of the visit was discussed with the patient/authorized technical services representative; all questions welcomed and answered. Patient/authorized technical services representative agreed to proceed Chest Pain and [...] Problems Paternal Grandfather Cancer Paternal Aunt other ([place]) Paternal Aunt Great aunt Colon Cancer No [...] Patient agreeable to treatment plan. Caryn Lowery APRN.PRESALES CONSULTANT documented in this encounter [facility] 10-17-2024 Instructions Charis Swan APRN.JACINTA - 10/17/2024 2:47 PM EDT We discussed [...] drainage. - Consider following up with your band nailer to discuss additional treatment options, including injectables. We discussed your lung nodules: - You have small lung nodules that were previously identified. These are common and often benign, but we monitor them to ensure there are no changes. - A recent CT scan was performed at [facility]. We are requesting the images and [...] or additional questions. documented in this encounter [facility] 10-17-2024 History of Present illness Narrative Images from the original note were not included. Pulmonary Medicine Patients name: Darren Reinoso PCP: Babar Phillip MD Recording using PHARMAJET software for draft documentation of the visit was discussed with the patient/authorized technical services representative; all questions welcomed and answered. Patient/authorized technical services representative agreed to proceed CC: follow-up HPI: Darren Reinoso is a 44 year old female current smoker with PMH significant for serious obesity, anxiety, EAMON on CPAP, lung nodules, asthma, recurrent bronchitis and possible aspergillus infection. Pulm hx respiratory failure due to severe bronchiolitis from human metapneumovirus in 2018. Followed with pulm at [facility]. Previously treated ID for pulmonary aspergillus, [...] spray. Previously offered allergy shots but declined. DME:[facility] Supplemental O2 PRN PAST MEDICAL HISTORY [...] 3.55 FEF50/FIF50 0.51 90-100 FIVC (L) 2.44 VDR99-01 (L/sec) 1.75 1.60 2.77 4.22 63 Time [...] but declined. May want to discuss with band nailer again if symptoms not managed with oral [...] which included preparing to see the patient, jpyx-mw-xcer patient care, completing clinical documentation, performing a medically appropriate examination, counseling and educating the patient/family/caregiver, and ordering medications, tests, or procedures. documented in this encounter [facility] 10-17-2024 Note [facility] 10-15-2024 Hospital Discharge instructions Patient Education [...] care provider or pharmacist before using an qukx-xaq-bzpanfv cough medicine. You may use acetaminophen or [...] as directed by your health care provider [phone] [employer]. [address] [place] [address], [place] [address]. All rights reserved. This information is not intended as a substitute for professional medical care. Always follow your healthcare professional's instructions. Follow Up Care 10/14/2024 23:31:39 With:BABAR PHILLIP MD Address: [address] [place] [id number] When:2-4 days [facility] 10-15-2024 Note Discharge Instructions Thank you for allowing [facility] to assist you with your healthcare needs. The following is important discharge information regarding your hospital visit. What to Do Next Instructions from Your Care Team No qualifying data available. Post Acute Orders No qualifying data available. You Need to Schedule the Following Appointments Follow Up with BABAR PHILLIP MD When:Within 2-4 days Where:[address] [place] [id number]- Allergies amoxicillin codeine penicillin sulfa drugs Medications [...] care provider or pharmacist before using an hrhr-pgo-lysnocz cough medicine. You may use acetaminophen or [...] as directed by your health care provider [phone] [employer]. [address] [place] [address]. All rights reserved. This information is not intended as a substitute for professional medical care. Always follow your healthcare professional's instructions. Additional Information VACCINATE! IT SAVES LIVES! Members of the community who have not yet received the COVID-19 vaccine and would like to receive it can visit one of [facility] vaccine clinics. There are many vaccine clinic locations within the [facility] [facility]. For locations and available times, please visit [email or web address] It is important to note that some COVID mobile vaccine clinics are held outdoors and may be canceled in rainy or stormy conditions. To learn more about pediatric vaccinations (ages 5-11), we invite you to visit the [facility] webpage. [email or web address] To learn more about the COVID-19 vaccine, we invite you to visit the CDC website for a list of frequently asked questions. https://www.cdc.gov/coronavirus/2 019-ncov/vaccines/faq.html [facility] Access Instructions: Stay connected with your healthcare team and access your personal medical information anytime with the [facility] Portal. If you would like a full copy of your medical records please contact the [facility] Medical Records Department Wednesday through Wednesday between 8a.m. and 4:30p.m. Please follow the directions below to access the portal: 1.Access the email account you provided upon registration to the [facility].2.Look for an invitation email from [facility].3.Open the email and access the invitation link: Accept Invitation to [facility]4.Fill in the required brewster to create your [...] you will allow to register on the [facility] for access to your information. You can also access the [facility] Patient Portal on the Better[employer]. Simply click on Health Records under Health [...] Call your local pharmacy or go to [email or web address] to find one close to you.3.Make use of household items: Use cat litter or old coffee grounds to dispose medications if other options are not available. Mix your drugs with these household products, seal them in an airtight container and throw it into the garbage. Call [facility]: [phone] to be sure your drugs can be [...] aware that I should contact my doctor. Patient/Tier Over Signature: Date/Time: Relationship to Patient: ____ Witness Name/Signature: Date/Time: [facility] 10-15-2024 Note Exam Date Time Procedure Performing Provider Status 10/15/24 1:[address] Angiography Chest w/ Contrast ERVIN SMILEY MD; Auth (Verified) [id number] ORIGINAL EXAMINATION: CTA OF THE CHEST 10/15/2024 [...] 10/15/2024 1:14:40 AM Ordering Provider: DAVID NGUYEN [facility]05-31-2025 Note* Exam Date Time Procedure Performing Provider Status 10/14/24 11:51 PM EKG [ED AO] - CV DAVID NGUYEN MD ; Auth (Verified) ECG Final Report Sinus rhythm Electronic Signature: DAVID NGUYEN MD 10/15/2024 00:17:35 [facility]05-30-2025 Telephone encounter Note* Telephone Encounter - Katie Moon MA - 10/13/2024 3:45 PM EDT Patient notified. [facility]05-30-2025 Miscellaneous Notes* Telephone Encounter - [...] you Caryn Lowery APRN.CNP documented in this encounterWright-Patterson [facility] Center05-30-2025 Telephone encounter Note * Telephone Encounter - Caryn Lowery APRN.CNP - 10/13/2024 3:38 PM EDT Preliminary results show gram positive bacteria. I am going to go ahead and treat her for possible respiratory infection with augmentin and zpack. As this can cause a yeast infection I am sending in diflucan as well Thank you Caryn Lowery APRN.CNP [facility]05-29-2025 Telephone encounter Note* Telephone Encounter - Katie Moon MA - 10/12/2024 11:36 AM EDT Tried calling patient, phone lines was static and unable to hear patient. Will call back once linesare working. [facility]05-29-2025 Telephone encounter Note* Telephone Encounter [...] up appointment. Thank you Caryn Lowery APRN.JACINTA [facility]05-29-2025 Telephone encounter Note* Telephone Encounter - Kelli Rizo - 10/12/2024 9:11 AM EDT Spoke with patient and scheduled 10 business days out as patient has Medicaid replacement and requires 10 business days for authorization. Please advise. [facility]05-29-2025 [facility]Mag[facility]05-29-2025 History of Present illness Narrative* Caryn Lowery APRN.CNP - 10/12/2024 7:41 AM EDT CC: Patient presents with: Recheck: Follow up headaches, B/L shoulder pain, back pain HPI Darren Reinoso is a 44 year old female who presents today for multiple concerns and complaints. Recording using PHARMAJET software for draft documentation of the visit was discussed with the patient/authorized technical services representative; all questions welcomed and answered. Patient/authorized technical services representative agreed to proceed Chest Pressure and [...] by mouth once daily. flash glucose sensor (SeatGeekSTYLE ANA PAULA 2 SENSOR) kit USE TO [...] min after dose flash glucose scanning reader (SeatGeekSTYLE ANA PAULA 2 READER) 1 Each once [...] Problems Paternal Grandfather Cancer Paternal Aunt other ([place]) Paternal Aunt Great aunt Colon Cancer No [...] plan. Caryn Lowery APRN.CNP documented in this encounterWright-Patterson [facility]05-28-2025 Telephone encounter Note * Telephone Encounter - Caryn Lowery APRN.CNP - 10/11/2024 7:36 PM EDT D-dimer elevated. Ct of the chest ordered Thank you Caryn Lowery APRN.CNP [facility]05-28-2025 History of Present illness Narrative* [...] PATIENT PRESENTS WITH AN IMPLANTABLE OR ATTACHED SYSTEM SUPPORT ADMINISTRATOR: No RADIOLOGY DEPARTMENT: General X-ray: Exam(s) Completed: Chest X-Ray PERIPHERAL IV DATA: Not applicable SIGNED BY: RT Luis(R) October 11, 2024 12:13 PM documented in this encounterWright-Patterson [facility]05-28-2025 NoteMag[facility]03-13-2025 NoteMag[facility]03-13-2025 History of Present illness Narrative* Caryn Lowery APRN.PRESALES CONSULTANT - 07/27/2024 1:07 PM EDT CC: Patient [...] Large kit 1 Each once daily. lancets (US DataworksET SUPER THIN LANCETS) 30 gauge Test blood [...] Problems Paternal Grandfather Cancer Paternal Aunt other ([place]) Paternal Aunt Great aunt Colon Cancer No [...] plan. Caryn Lowery APRN.CNP documented in this encounterWright-Patterson [facility] Center02-27-2025 History of Present illness Narrative* Meggna Barrow RT(R) - 07/13/2024 4:30 PM EST [...] PATIENT PRESENTS WITH AN IMPLANTABLE OR ATTACHED SYSTEM SUPPORT ADMINISTRATOR: No RADIOLOGY DEPARTMENT: General X-ray: Exam(s) Completed: Chest X-Ray PERIPHERAL IV DATA: Not applicable SIGNED BY: RT Fermin(R) July 13, 2024 4:28 PM documented in this encounterWright-Patterson [facility] Center02-27-2025 NoteMag[facility] Hospital02-27-2025 NoteMag[facility]02-27-2025 History of Present illness Narrative* Janie Vinson APRN.PRESALES CONSULTANT - 07/13/2024 4:12 PM EST CC: Patient [...] min after dose flash glucose scanning reader (SeatGeekST8fit - F[employer] for the [employer] of [employer] ANA PAULA 2 READER) 1 Each once [...] Problems Paternal Grandfather Cancer Paternal Aunt other ([place]) Paternal Aunt Great aunt Colon Cancer No [...] spine. IMPRESSION IMPRESSION: No acute radiographic abnormality. Transmission Calibration Engineer: SARWAT Transcribe Date/Time: Jul 13 2024 4:42P [...] Patient agreeable to treatment plan. Janie Vinson APRN.PRESALES CONSULTANT documented in this encounterWright-Pat[facility]02-14-2025 NoteMagruder [facility] Hospital02-14-2025 History of Present illness Narrative* Older, Caryn, LILI.PRESALES CONSULTANT - 06/30/2024 1:15 PM EST CC: Patient [...] min after dose flash glucose scanning reader ([employer] ANA PAULA 2 READER) 1 Each once [...] Problems Paternal Grandfather Cancer Paternal Aunt other ([place]) Paternal Aunt Great aunt Colon Cancer No [...] plan. Caryn Lowery APRN.CNP documented in this encounterWright-Patterson [facility]02-03-2025 Telephone encounter Note * Telephone Encounter - Shazia Acuña LPN - 06/19/2024 12:00 PM EST Images from the original note were not included. Elle Boone MD You1 minute ago (11:57 AM) Sent in KiteReaders [facility]02-03-2025 Miscellaneous Notes* Telephone Encounter - Shazia Acuña LPN - 06/19/2024 12:00 PM EST Images from the original note were not included. Elle Boone MD You1 minute ago (11:57 AM) Sent in KiteReaders * Addendum Note - Elle Boone MD - 06/19/2024 11:57 AM ESTAddended by: ELLE BOOEN on: 06/19/2024 11:57 AM Modules accepted: Orders * Telephone Encounter - Shazia Acuña LPN - 06/19/2024 8:46 AM EST [place] [facility] called and states the Advair has cardiovascular toxicity interactions with the Voriconazole that has been ordered by another physician. They are wondering if Symbicort or Dulera shouldbe sent as they don't have these interactions with the Voriconazole. Shazia Acuña LPN documented in this encounterWright-Patterson Medical Center02-03-2025 Note* Addendum Note - Elle Boone MD - 06/19/2024 11:57 AM ESTAddended by: ELLE BOONE on: 06/19/2024 11:57 AM Modules accepted: Orders [facility]02-03-2025 Telephone encounter Note* Telephone Encounter - Shazia Acuña LPN - 06/19/2024 8:46 AM EST [place] [facility] called and states the Advair has cardiovascular toxicity interactions with the Voriconazole that has been ordered by another physician. They are wondering if Symbicort or Dulera shouldbe sent as they don't have these interactions with the Voriconazole. Shazia Acuña LPN [facility]01-31-2025 History of Present illness Narrative* Elle Boone MD - 06/16/2024 1:30 PM EST Images from the original note were not included. . [facility] [place] Note Patient name: Darren Reinoso PCP: Babar [...] was started on Voriconazole by her local dedicated regional driver and referred to ID. By time she [...] Symbicort, just albuterol and her nebs. DME: [facility] DATA: PFT 2018: Spirometry shows [...] DATE OF EXAM: Feb 29 2024 2:25PM [facility] 0539 - CT CHEST W IVCON [...] Problems Paternal Grandfather Cancer Paternal Aunt other (NV) Paternal Aunt Great aunt Colon Cancer No [...] which included preparing to see the patient, [id number] patient care, completing clinical documentation, obtaining and/or reviewing separately obtained history, performing a medically appropriate examination, ordering medications, tests, or procedures, and independently interpreting results (not separately reported). Elle Boone MD [facility] [place] documented in this encounterWright-Patterson Medical Center01-31-2025 NoteMagruder [facility] Hospital01-31-2025 NoteMagruder [facility] Hospital01-31-2025 Procedure note* Viktoriya Woodwadr RPFT - 06/16/2024 1:12 PM ESTAssociated Order(s): [...] Nitric Oxide (ppb) 06/16/2024 5.0 NAME: TED oCtter PATIENT NAME: Darren Reinoso DATE: June 16, 2024 TIME: 1:12 PM [facility]01-31-2025 Procedure note* Viktoriya Woodward RPFT [...] 2024 TIME: 1:12 PM documented in this encounterWright-Patterson Medical Center01-31-2025 NoteMagruder Memorial Hospital01-31-2025 History of Present illness Narrative* Viktoriya Woodward RPFT - 06/16/2024 1:05 PM EST PULM FUNCTION: Provider: Elle Boone MD Assisting Tech: Viktoriya Woodward RPFT Spirometry: 1 Exhaled Nitric Oxide: 1 documented in this encounterWright-Patterson Medical Center12-31-2024 Telephone encounter Note * Telephone [...] by mouth once daily. Tete Gonzalez RN [facility]12-31-2024 Miscellaneous Notes* Telephone Encounter - [...] daily. Tete Gonzalez RN documented in this encounterWright-Patterson Medical Center12-13-2024 NoteMagruder Memorial Hospital12-13-2024 History of Present illness Narrative* Caryn Lowery APRN.PRESALES CONSULTANT - 04/28/2024 11:27 AM EST CC: Patient [...] Has appointment to establish with pulmonology at [facility] next month. DIABETES MELLITUS: Ms. Reinoso denies [...] min after dose flash glucose scanning reader (SeatGeekSTYLE ANA PAULA 2 READER) 1 Each once [...] Problems Paternal Grandfather Cancer Paternal Aunt other ([place]) Paternal Aunt Great aunt Colon Cancer No [...] complication, without long-term current use of insulin ([facility]) - ICD9: 250.00, ICD10: E11.9 - Controlled [...] plan. Caryn Lowery APRN.CNP documented in this encounterWright-Patterson [facility] Center11-27-2024 Telephone encounter Note * Telephone [...] [place] LPN April 12, 2024 3:25 PM [facility]11-27-2024 Miscellaneous Notes* Telephone Encounter - [...] 12, 2024 3:25 PM documented in this encounterWright-Patterson Medical Center11-20-2024 Telephone encounter Note * Telephone Encounter - Shazia Lee APRN.CNP - 04/05/2024 10:02 AM EST Wound culture reveals Few enterococcus faecalis Reached out and spoke with patient and states wound remains draining Its getting smaller Changing the dressing daily Continue taking the Doxycyline Wound care [facility] Work Phone: [phone] Miscellaneous Notes* Telephone Encounter - Shazia Lee APRN.CNP - 04/05/2024 10:02 AM EST Wound culture reveals Few enterococcus faecalis Reached out and spoke with patient and states wound remains draining Its getting smaller Changing the dressing daily Continue taking the Doxycyline Wound care documented in this encounterWright-Patterson Medical Center11-17-2024 Instructions* Patient Instructions* Victoria Nguyen [...] Discussed expected course of illness Victoria Nguyen APRN.PRESALES CONSULTANT documented in this encounterWright-Patterson Medical Center11-17-2024 NoteMagruder Memorial Hospital11-17-2024 History of Present illness Narrative* Victoria [...] min after dose flash glucose scanning reader (Bacterin International HoldingsYLE ANA PAULA 2 READER) 1 Each once [...] Problems Paternal Grandfather Cancer Paternal Aunt other ([place]) Paternal Aunt Great aunt Colon Cancer No [...] illness Victoria Nguyen APRN.CNP documented in this encounterWright-Patterson Medical Center11-16-2024 Instructions* Patient Instructions* Victoria Nguyen [...] drainage after 3-4 days. documented in this encounterWright-Patterson Medical Center11-16-2024 NoteMagruder Memorial Hospital11-16-2024 History of Present illness Narrative* Victoria [...] min after dose flash glucose scanning reader ([employer] ANA PAULA 2 READER) 1 Each once [...] Problems Paternal Grandfather Cancer Paternal Aunt other ([place]) Paternal Aunt Great aunt Colon Cancer No [...] Discussed expected course of illness Victoria Nguyen APRN.PRESALES CONSULTANT documented in this encounterWright-Patterson Medical Center11-15-2024 NoteMagruder Memorial Hospital11-15-2024 History of Present illness Narrative* Janie [...] history is provided by the patient. No delivery man was used. Review of Systems Constitutional: Negative. Skin: Negative. Objective Physical Exam Constitutional: Appearance: Normal appearance. Pulmonary: Effort: Pulmonary effort is normal. Musculoskeletal: Legs: Comments: Centimeter by 2 cm firm area no induration noted no redness spreading. Sas Statistical Programmer present Neurological: Mental Status: She is alert. [...] breath. Use over 5-15minutes. flash glucose sensor (SeatGeekSTYLE ANA PAULA 2 SENSOR) kit USE TO [...] Problems Paternal Grandfather Cancer Paternal Aunt other ([place]) Paternal Aunt Great aunt Colon Cancer No [...] discussed with the Patient or Patient's Authorized Tier Over. Asapplicable, any other physician, advance practice provider, medical student, or other health professional student that will be observing or involved in the sensitive examination for educational or training purposes was discussed with the Patient or Authorized Tier Over. The Patient or Authorized Tier Over has agreed to proceed with the sensitive examination. (Sensitive examination includes inspection and/or palpation of the breasts, pelvis, prostate and anorectal regions) Janie Vinson APRN.JACINTA documented in this encounterWright-Patterson Medical Center11-01-2024 Telephone encounter Note * Telephone [...] with breakfast. Take with inocencio Gonzalez RN [facility]11-01-2024 Miscellaneous Notes* Telephone Encounter - [...] with inocencio Gonzalez RN documented in this encounterWright-Patterson Medical Center11-01-2024 NoteMagruder Memorial Hospital11-01-2024 History of Present illness Narrative* Caryn Lowery APRN.PRESALES CONSULTANT - 03/17/2024 8:17 AM EDT CC: Patient presents with: Recheck: Follow up SOB HPI Darren Reinoso is a 44 year old female who presents today for follow up on respiratory concerns. Patient has had ongoing respiratory concerns for the past 2-3 months with no improvement with antibiotic treatment. Has history of asthma and currently sees [place] [facility]monology. With no improvement, sputum cultures were [...] Large kit 1 Each once daily. lancets (US DataworksET SUPER THIN LANCETS) 30 gauge Test blood [...] Problems Paternal Grandfather Cancer Paternal Aunt other ([place]) Paternal Aunt Great aunt Colon Cancer No [...] plan. Caryn Lowery APRN.CNP documented in this encounterWright-Patterson Medical Center10-15-2024 History of Present illness Narrative* [...] PATIENT PRESENTS WITH AN IMPLANTABLE OR ATTACHED SYSTEM SUPPORT ADMINISTRATOR: No ALLERGIES: Reviewed and unchanged CONTRAST ALLERGY: [...] 2024 TIME: 2:50 PM documented in this encounterWright-Patterson Medical Center10-15-2024 NoteMagruder Memorial Hospital10-15-2024 Telephone encounter Note* Telephone Encounter - Babar Phillip MD - 02/29/2024 1:00 PM EDT I agree, once pulmonary is following with her for lung issues, I would advice that she direct all queries and concerns to them Babar Medeiros MD [facility]10-15-2024 Miscellaneous Notes* Telephone Encounter - [...] aspergillus, when the blood cx is negative. [facility] is prescribing the medication. Patient will call them to ask them to look at the results again, and tell her if she should be taking the medication. documented in this encounterWright-Patterson Medical Center10-15-2024 Telephone encounter Note * Telephone Encounter - Silviano Root RN - 02/29/2024 11:32 AM EDT Faxed respiratory cx and blood results to [facility], per patient request. . Patient asking why she is being treated for aspergillus, when the blood cx is negative. [facility] is prescribing the medication. Patient will call them to ask them to look at the results again, and tell her if she should be taking the medication. [facility]10-14-2024 Telephone encounter Note* Telephone Encounter - Tarah Haider LPN - 02/28/2024 3:40 PM EDT Spoke with pt and information listed below given. Pt verbalizes understanding. Pt has an apt with infectious Disease on Wednesday03/01/24 at 2 PM. She was not certain what the doctors name was. Tarah Haider LPN [facility]10-14-2024 Miscellaneous Notes* Telephone Encounter - [...] results. 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 Reports she has been taking it for 2 days. Asking if this is the right medication? Please advise patient: [phone] documented in this encounterWright-Patterson Medical Center10-14-2024 Telephone encounter Note * Telephone Encounter - Caryn Lowery APRN.CNP - 02/28/2024 10:53 AM EDT This is an appropriate treatment medication. Is she seeing Infectious disease as ordered by the pulmonology group? Take care Caryn Lowery APRN.CNP [facility]10-14-2024 Telephone encounter Note* Telephone Encounter - Silviano Root RN - 02/28/2024 10:17 AM EDT Patient asking pcp to review and advise on recent lab results. 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 Reports she has been taking it for 2 days. Asking if this is the right medication? Please advise patient: [phone] [facility]10-11-2024 Telephone encounter Note* Telephone Encounter - Marita Gonzalez RN - 02/25/2024 2:57 PM EDT Yas Valencia calls to request refill of Trulicity. Order currently says on hold from 02/21/2024. Notified [place]. Marita Gonzalez RN [facility]10-11-2024 Miscellaneous Notes* Telephone Encounter - Marita Gonzalez RN - 02/25/2024 2:57 PM EDT Yas Valencia calls to request refill of Trulicity. Order currently says on hold from 02/21/2024. Notified [place]. Marita Gonzalez RN documented in this encounterWright-Patterson Medical Center10-11-2024 Telephone encounter Note * Telephone Encounter - Chaparrita Paez RN - 02/25/2024 12:04 PM EDT Pt called and is notified of providers message and instructions. Pt voices understanding. She states she will be in today to get them done. Pt states she finally got in to see Pulmonary at [facility] today at 1015. She reports she was put on an antifungal for aspergillus, and has an order to see infectious disease. She said she is still waiting to get a call from them. Chaparrita Paez RN [facility]10-11-2024 Miscellaneous Notes* Telephone Encounter - Chaparrita Paez RN - 02/25/2024 12:04 PM EDT Pt called and is notified of providers message and instructions. Pt voices understanding. She states she will be in today to get them done. Pt states she finally got in to see Pulmonary at [facility] today at 1015. She reports she [...] done Babar Olvera MD documented in this encounterWright-Patterson Medical Center10-11-2024 Telephone encounter Note * Telephone Encounter - Babar Phillip MD - 02/25/2024 11:14 AM EDT I have ordered labs for the patient. Please get that done Babar Olvera MD [facility]10-11-2024 Telephone encounter Note* Telephone Encounter - Silviano Root RN - 02/25/2024 10:54 AM EDT Faxed respiratory culture results to [facility], per patient request. [facility]10-11-2024 Miscellaneous Notes* Telephone Encounter - Silviano Root RN - 02/25/2024 10:54 AM EDT Faxed respiratory culture results to [facility], per patient request. documented in this encounterWright-Patterson Medical Center10-07-2024 NoteMagruder Memorial Hospital10-07-2024 History of Present illness Narrative* Duran Blunt MD - 02/21/2024 2:31 PM EDT Duran Blunt MD Department of Orthopaedics Orthopaedics [address] [facility] [address] Dept: [phone] Dept February 21, 2024 CHIEF COMPLAINT: Established [...] min after dose flash glucose scanning reader ([employer] ANA PAULA 2 READER) 1 Each once [...] anxiety) Duran Blunt MD documented in this encounterWright-Patterson Medical Center10-03-2024 NoteMagruder Memorial Hospital10-03-2024 History of Present illness Narrative* Caryn Lowery APRN.PRESALES CONSULTANT - 02/17/2024 1:48 PM EDT CC: Patient [...] continued to call her pul[place] group [place] but not getting an appointment. Denies chest [...] min after dose flash glucose scanning reader ([employer] ANA PAULA 2 READER) 1 Each once [...] Problems Paternal Grandfather Cancer Paternal Aunt other ([place]) Paternal Aunt Great aunt Colon Cancer No [...] - will get her in with new dedicated regional driver, refill prednisone and await other treatment until. [...] plan. Caryn Lowery APRN.CNP documented in this encounterWright-Patterson Medical Center10-02-2024 Telephone encounter Note * Telephone [...] two times a day. Tete Gonzalez RN [facility]10-02-2024 Miscellaneous Notes* Telephone Encounter - [...] day. Tete Gonzalez RN documented in this encounterWright-Patterson Medical Center09-20-2024 History of Present illness Narrative* [...] PATIENT PRESENTS WITH AN IMPLANTABLE OR ATTACHED SYSTEM SUPPORT ADMINISTRATOR: No RADIOLOGY DEPARTMENT: General X-ray: Exam(s) Completed: Chest X-Ray PERIPHERAL IV DATA: Not applicable SIGNED BY: RT Luis(R) February 04, 2024 2:53 PM documented in this encounterWright-Patterson Medical Center09-20-2024 NoteMagruder Memorial Hospital09-18-2024 NoteMagruder [facility] Hospital09-18-2024 History of Present illness Narrative* Caryn [...] started on prednisone and doxycycline by her dedicated regional driver that she sees for her asthma. Was [...] min after dose flash glucose scanning reader ([employer] Fitness for the rest of us ANA PAULA 2 READER) 1 Each once [...] Problems Paternal Grandfather Cancer Paternal Aunt other ([place]) Paternal Aunt Great aunt Colon Cancer No [...] plan. Caryn Lowery APRN.CNP documented in this encounterWright-Patterson [facility] Center09-06-2024 History of Present illness Narrative* [...] PATIENT PRESENTS WITH AN IMPLANTABLE OR ATTACHED SYSTEM SUPPORT ADMINISTRATOR: No RADIOLOGY DEPARTMENT: General X-ray: Exam(s) Completed: Chest X-Ray PERIPHERAL IV DATA: Not applicable SIGNED BY: RT Luis(R) January 21, 2024 11:59 AM documented in this encounterWright-Patterson Medical Center09-06-2024 NoteMag[facility]-06-2024 NoteMagruder [facility] Hospital09-06-2024 History of Present illness Narrative* Caryn Lowery APRN.PRESALES CONSULTANT - 01/21/2024 11:04 AM EDT CC: Patient [...] my chart so went to ER at [facility] on 01/04/24. CT negative for PE, possibly start of infection showing nodular densities with lymphadenopathy. EKG and blood work including troponin without concern. Instructed to start treatment as ordered by Pulmonology. Has not seen her [place] [facility] pulmonology in a few months ut were [...] min after dose flash glucose scanning reader ([employer] ANA PAULA 2 READER) 1 Each once [...] Problems Paternal Grandfather Cancer Paternal Aunt other ([place]) Paternal Aunt Great aunt Colon Cancer No [...] plan. Caryn Lowery APRN.CNP documented in this encounterWright-Patterson Medical Center09-04-2024 Telephone encounter Note * Telephone Encounter - Yuliana Goldstein MA - 01/19/2024 4:05 PM EDT Called and spoke with patient. Patient scheduled appointment with Dr. Blunt on Wednesday01/24/24. [facility]09-04-2024 Miscellaneous Notes* Telephone Encounter - [...] advise. Geena Nielsen LPN documented in this encounterWright-Patterson Medical Center09-04-2024 Telephone encounter Note * Telephone Encounter - Milly Arce LPN - 01/19/2024 8:55 AM EDT Patient notified, Darren had 3 days left of the medication but threw it out. Milly Arce LPN [facility]09-04-2024 Miscellaneous Notes* Telephone Encounter - [...] was diagnosed with a lung infection by [facility] pulmonology, she is taking prednisone taper [...] pcp. Shira Chang LPN documented in this encounterWright-Patterson Medical Center09-03-2024 Telephone encounter Note * Telephone [...] dueto pain. Please advise. Geena Nielsen LPN [facility]08-29-2024 NoteMagruder [facility] Hospital08-29-2024 History of Present illness Narrative* Caryn Lowery APRN.PRESALES CONSULTANT - 01/13/2024 11:23 AM EDT CC: Patient presents with: Recheck: ER follow up, lung infection HPI Darren Reinoso is a 44 year old female who presents today for ER follow-up. Was seen in office on 01/03/24 with right sided chest pain, feeling feverish,cough, wheezing, and SOB on exertion. D-dimer was positive which patient saw in my chart so went to ER at [facility] on 01/04/24. CT negative for PE, possibly start of infection showing nodular densities with lymphadenopathy. EKG and blood work including troponin without concern. Instructed to start treatment as ordered by Pulmonology. Has not seen her [place] [facility] pulmonology in a few months ut were [...] she is going to end up in prison due toprednisone. Her dedicated regional driver told her to continue her prednisone. Also [...] Large kit 1 Each once daily. lancets ([employer] SUPER [employer]IN LANCETS) 30 gauge Test blood [...] min after dose flash glucose scanning reader ([employer] ANA PAULA 2 READER) 1 Each once [...] Problems Paternal Grandfather Cancer Paternal Aunt other ([place]) Paternal Aunt Great aunt Colon Cancer No [...] psychiatry - Reviewed concept of neurochemical imbalance [facility] depression/anxiety, treatment options and benefits of counseling in combination with medication. Also reviewed benefits of sleep hygeine, diet and exercise - Instructed patient to contact office or bfueh-sw-fibv after-hours promptly should condition worsen or any new symptoms appear. - [facility] and after hours crisis line 5. Elevated [...] plan. Caryn Lowery APRN.CNP documented in this encounterWright-Patterson Medical Center08-28-2024 Telephone encounter Note * Telephone [...] her to call us. Chaparrita Paez RN [facility]08-27-2024 Telephone encounter Note* Telephone Encounter - Babar Phillip MD - 01/11/2024 5:34 PM EDT This is an expected side effect of the medication Babar Medeiros MD [facility]08-27-2024 Telephone encounter Note* Telephone Encounter - Shira Chang LPN - 01/11/2024 2:03 PM EDT Pt states she was diagnosed with a lung infection by [facility] pulmonology, she is taking prednisone taper [...] along to her pcp. Shira Chang LPN [facility]08-22-2024 Telephone encounter Note* Telephone Encounter - Caryn Lowery APRN.CNP - 01/06/2024 3:30 PM EDT ER records reviewed, possible start of infectious process. Please schedule ER follow up in 1 week. Thank you Caryn Lowery APRN.CNP [facility]08-22-2024 Miscellaneous Notes* Telephone Encounter - [...] Patient states she was seen in the [place] ER for chest pain and was given AIB and prednisone. States CT was done and was negative. I will requests records for review. * Telephone Encounter - Caryn Lowery APRN.CNP - 01/05/2024 7:38 AM EDT D-dimer is elevated. She needs a CT of the chest to further evaluate this. Other blood work in acceptable ranges. Thank you Caryn Lowery APRN.JACINTA documented in this encounterWright-Patterson Medical Center08-22-2024 Telephone encounter Note * Telephone Encounter - Katie Moon MA - 01/06/2024 1:19 PM EDT Records received and placed on provider desk for review. [facility]08-[facility] Telephone encounter Note* Telephone Encounter [...] Gonzalez RN January 06, 2024 10:37 AM [facility]08-22-2024 Miscellaneous Notes* Telephone Encounter - [...] 06, 2024 10:37 AM documented in this encounterWright-Patterson Medical Center08-21-2024 Telephone encounter Note * Telephone Encounter - Katie Moon MA - 01/05/2024 11:07 AM EDT Patient states she was seen in the [place] ER for chest pain and was given AIB and prednisone. States CT was done and was negative. I will requests records for review. [facility]08-[facility] Telephone encounter Note* Telephone Encounter - Caryn Lowery APRN.CNP - 01/05/2024 7:38 AM EDT D-dimer is elevated. She needs a CT of the chest to further evaluate this. Other blood work in acceptable ranges. Thank you Caryn Lowery APRN.CNP [facility]08-20-2024 Hospital Discharge instructions Patient Education [...] or as directed by your healthcare provider [phone] [employer] [place] [address]. All rights reserved. This information is not intended as a substitute for professional medical care. Always follow yourhealthcare professional's instructions. Follow Up Care 01/04/2024 15:57:49 With:BABAR PHILLIP MD Address: [address] [place] [id number]- When:2-4 days [facility] 08-20-2024 Note Discharge Instructions Thank you for allowing [facility] to assist you with your healthcare needs. [...] BABAR PHILLIP MD When:Within 2-4 days Where:[address] [place] [id number]- Allergies amoxicillin codeine penicillin sulfa drugs Medications [...] or as directed by your healthcare provider [phone] [employer] [place] [address]. All rights reserved. This information is not intended as a substitute for professional medical care. Always follow yourhealthcare professional's instructions. Additional Information VACCINATE! IT SAVES LIVES! Members of the community who have not yet received the COVID-19 vaccine and would like to receive it can visit one of [facility] vaccine clinics. There are many vaccine clinic locations within the [facility]. For locations and available times, please visit [email or web address] It is important to note that some COVID mobile vaccine clinics are held outdoors and may be canceled in rainy or stormy conditions. To learn more about pediatric vaccinations (ages 5-11), we invite you to visit the [facility] webpage. [email or web address] learn more about the COVID-19 vaccine, we invite you to visit the CDC website for a list of frequently asked questions. https://www.cdc.gov/coronavirus/2019-ncov/vaccines/faq.html [facility] Patient Portal Access Instructions: Stay connected with your healthcare team and access your personal medical information anytime with the [facility] Patient Portal. If you would like a full copy of your medical records please contact the [facility] Medical Records Department Wednesday through Wednesday between 8a.m. and 4:30p.m. Please follow the directions below to access the portal: 1.Access the email account you provided upon registration to the hospital.2.Look for an invitation email from [facility].3.Open the email and access the invitation link: Accept Invitation to [facility]4.Fill in the required brewster to create your account. Sign into [email or web address] with your username and password that you [...] you will allow to register on the [employer] Patient Portal for access to your information. You can also access the [employer] Patient Portal on the BetterDoctor. Simply click on Health Records under [place] [employer] and then click on the [email or web address] logo. HOW TO SAFELY DISPOSE OF PRESCRIPTION [...] Call your local pharmacy or go to http://bit.Lima/[email or web address] to find one close to you.3.Make use of household items: Use cat litter or old coffee grounds to dispose medications if other options arenot available. Mix your drugs with these household products, seal them in an airtight container andthrow it into the garbage. Call [facility]: [phone] to be sure your drugs can be [...] that I should contact my suresh huber. Patient/Tier Over Signature: Date/Time: Relationship to Patient: Witness Name/Signature: Date/Time: [facility] Evelia [id number] Note ORIGINAL EXAMINATION: CTA OF THE CHEST01/04/2024 [...] Sign Date: 01/04/2024 6:51:36 PM Ordering Provider: [facility]08-20-2024 Note Sinus rhythm Electronic Signature: CHELSIE MORALES MD 01/04/2024 16:57:[address] [place] [address] 08-20-2024 Telephone encounter Note* Telephone Encounter - Babar Phillip MD - 01/04/2024 4:25 PM EDT Noted Regards, Babar Phillip MD [facility]08-[facility]-2024 Miscellaneous Notes* Telephone Encounter - Babar Phillip MD - 01/04/2024 4:25 PM EDT Noted Regards, Babar Phillip MD * Telephone Encounter - Chaparrita Paez RN - 01/04/2024 3:36 PM EDT Pt called in and reports [facility] had a 4 hour wait and she was not going to wait that long. She was going to [facility]. Called and talked with Sujatha with [facility] and gave her the report Jignesh had previously. Will try to fax information to fax # [phone]. She reports they just installed the new fax machines, so they may or may not get the information. * Telephone Encounter - Silviano Root RN - 01/04/2024 2:20 PM EDT Spoke with patient. Patient reports she is feeling bad, and agreeable to go to [facility] ER. States she will be at [...] yesterday was normal. Patient contacted pulm at [facility], and this nurse faxed lab results to [facility] Pulm, attn: David Regalado Np, per patient request. Asking pcp to please advise patient. documented in this encounterWright-Patterson Medical Center08-20-2024 Telephone encounter Note * Telephone Encounter - Chaparrita Paez RN - 01/04/2024 3:36 PM EDT Pt called in and reports [facility] had a 4 hour wait and she was not going to wait that long. She was going to [facility]. Called and talked with Sujatha with [facility] and gave her the report Jignesh had previously. Will try to fax information to fax # [phone]. She reports they just installed the new fax machines, so they may or may not get the information. [facility]08-20-[facility] Telephone encounter Note* Telephone Encounter - Silviano Root RN - 01/04/2024 2:20 PM EDT Spoke with patient. Patient reports she is feeling bad, and agreeable to go to [facility] ER. States she will be at ER in approx 35-45 min. This nurse phoned ER and given D- Dimer, CXR, EKG results, gave brief hx on patient. Advised patient is having symptoms of SOB, increased pain in chest to back with deep breath, and cough. [facility]08-20-20[facility] Telephone encounter Note* Telephone Encounter [...] yesterday was normal. Patient contacted pulm at [facility], and this nurse faxed lab results to [facility] Pulm, attn: David Regalado Np, per patient request. Asking pcp to please advise patient. [facility]08-19-[facility] History of Present illness Narrative* [...] PATIENT PRESENTS WITH AN IMPLANTABLE OR ATTACHED SYSTEM SUPPORT ADMINISTRATOR: No RADIOLOGY DEPARTMENT: General X-ray: Exam(s) Completed: Chest X-Ray PERIPHERAL IV DATA: Not applicable SIGNED BY: RT Bob(R) January 03, 2024 2:22 PM documented in this encounterWright-Patterson Medical Center08-19-2024 NoteMagruder Memorial Hospital08-19-2024 NoteMagruder Memorial Hospital08-19-2024 History of Present illness Narrative* Caryn Lowery APRN.PRESALES CONSULTANT - 01/03/2024 1:12 PM EDT CC: Patient [...] min after dose flash glucose scanning reader ([employer] ANA PAULA 2 READER) 1 Each once [...] Problems Paternal Grandfather Cancer Paternal Aunt other ([place]) Paternal Aunt Great aunt Colon Cancer No [...] per minute AXIS: Normal axis INTERVALS: Normal ND interval QRS COMPLEX: Normal ST SEGMENT: Normal ST-T segments QT INTERVAL: Normal COMPARED WITH PRIOR: unchanged ASSESSMENT/PLAN: 1. 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 - stop celebrex Follow up in 2 [...] plan. Caryn Lowery APRN.JACINTA documented in this encounterWright-Patterson Medical Center07-26-2024 Telephone encounter Note * Telephone Encounter - Silviano Root RN - 12/10/2023 11:57 AM EDT Patient reports she was prescribed amoxicillin for tooth infection in on 12-06-23, and has now developed a vaginal yeast infection- vaginal itching, burning, discharge. Asking Kilo Rubin, to send Rx for diflucan to [facility]. Pended previous Rx. [facility]07-26-2024 Miscellaneous Notes* Telephone Encounter - Silviano Root RN - 12/10/2023 11:57 AM EDT Patient reports she was prescribed amoxicillin for tooth infection in [facility] on 12-06-23, and has now developed a vaginal yeast infection- vaginal itching, burning, discharge. Asking Kilo Rubin, to send Rx for diflucan to [facility]. Pended previous Rx. documented in this encounterWright-Patterson Medical Center07-24-2024 Telephone encounter Note * Telephone Encounter - Caryn Lowery APRN.CNP - 12/08/2023 7:59 AM EDT Ok to continue this as long as abdominal pain and other symptoms are fully resolved. Thank you Caryn Lowery APRN.JACINTA [facility]07-24-2024 Miscellaneous Notes* Telephone Encounter - [...] 07, 2023 4:07 PM documented in this encounterWright-Patterson Medical Center07-23-2024 Telephone encounter Note * Telephone [...] Uriostegui LPN December 07, 2023 4:07 PM [facility]07-22-2024 History of Present illness Narrative* Steve Ramirez APRN.PRESALES CONSULTANT - 12/06/2023 3:00 PM EDT Images from [...] min after dose flash glucose scanning reader ([employer] ANA PAULA 2 READER) 1 Each once [...] Problems Paternal Grandfather Cancer Paternal Aunt other ([place]) Paternal Aunt Great aunt Colon Cancer No [...] of care. This note was generated using [employer] software. It may contain errors in wording, punctuation, or spelling. Steve Ramirez APRN.JACINTA documented in this encounterWright-Patterson Medical Center07-22-2024 Telephone encounter Note * Telephone [...] she will go to [facility] for [facility]. [facility]07-[facility]-2024 Miscellaneous Notes* Telephone Encounter - [...] to [facility] for evaluation. 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 Also [...] ago ate a burger and fries from [employer] which caused return of the pain vomiting [...] min after dose flash glucose scanning reader ([employer] ANA PAULA 2 READER) 1 Each once [...] Problems Paternal Grandfather Cancer Paternal Aunt other ([place]) Paternal Aunt Great aunt Colon Cancer No [...] plan. Caryn Lowery APRN.CNP documented in this encounterWright-Patterson Medical Center07-16-2024 Telephone encounter Note * Telephone [...] Dickey LPN November 30, 2023 1:23 PM [facility]07-16-2024 Miscellaneous Notes* Telephone Encounter - [...] 30, 2023 1:23 PM documented in this encounterWright-Patterson Medical Center07-09-2024 Telephone encounter Note * Telephone Encounter - Linda Reyez APRN.CNP - 11/23/2023 9:56 AM EDT Ordered. [facility]07-09-2024 Miscellaneous Notes* Telephone Encounter - Linda Reyez APRN.CNP - 11/23/2023 9:56 AM EDT Ordered. * Telephone Encounter - Shelia Houston LPN - 11/23/2023 9:21 AM EDT Darren is requesting a lab draw to test for exposure to syphilis. Would like to complete labs today. No need to call back, she will check My Chart for orders. documented in this encounterWright-Patterson Medical Center07-09-2024 Telephone encounter Note * Telephone Encounter - Shelia Houston LPN - 11/23/2023 9:21 AM EDT Darren is requesting a lab draw to test for exposure to syphilis. Would like to complete labs today. No need to call back, she will check My Chart for orders. [facility]07-03-[facility] Telephone encounter Note* Telephone Encounter - Katie Moon MA - 11/17/2023 10:55 AM EDT Patient scheduled and notified. [facility]07-03-20[facility] Miscellaneous Notes* Telephone Encounter - [...] in with him. Pt states Caryn Lowery CONTINUOUS IMPROVEMENT COACH wanted Pt to get in with her [...] you Caryn Lowery APRN.CNP documented in this encounterWright-Patterson Medical Center07-03-2024 Telephone encounter Note * Telephone Encounter - Caryn Lowery APRN.CNP - 11/17/2023 8:[address] patient in a walkin spot on WednesdayDecember 02. Also urine is without infection. Thank you Caryn Lowery APRN.CNP [facility]07-02-2024 Note* Addendum Note - Celeste Eric - 11/16/2023 3:58 PM EDTAddended by: CELESTE ERIC on: 11/16/2023 03:58 PM Modules accepted: Orders [facility]07-02-2024 Miscellaneous Notes* Addendum Note - Celeste Eric - 11/16/2023 3:58 PM EDTAddended by: CELESTE ERIC on: 11/16/2023 03:58 PM Modules accepted: Orders documented in this encounterWright-Patterson Medical Center07-02-2024 Telephone encounter Note * Telephone Encounter - Chaparrita Paez, ROD - 11/16/2023 11:40 AM EDT Pt called and is notified of providers results and instructions. Pt voices understanding. Let Pt know to call Dr Gary and get in with him. Pt states Caryn Lowery CONTINUOUS IMPROVEMENT COACH wanted Pt to get in with her [...] Please call and advise. Chaparrita Paez, RN [facility]07-02-2024 Telephone encounter Note* Telephone Encounter [...] case needed. 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 Also [...] 30 tablet^Rfl: 0 flash glucose scanning reader ([employer] ANA PAULA 2 READER)^1 Each once daily.^Disp: [...] Problems Paternal Grandfather Cancer Paternal Aunt other ([place]) Paternal Aunt Great aunt Colon Cancer No [...] plan. Caryn Lowery APRN.CNP documented in this encounterWright-Patterson Medical Center06-17-2024 Telephone encounter Note * Telephone [...] Uriostegui LPN November 01, 2023 2:01 PM [facility]06-[facility] Miscellaneous Notes* Telephone Encounter - [...] 01, 2023 2:01 PM documented in this encounterWright-Patterson Medical Center06-05-2024 History of Present illness Narrative* Caryn Lowery APRN.PRESALES CONSULTANT - 10/20/2023 5:37 PM EDT CC: Patient [...] 30 tablet^Rfl: 0 flash glucose scanning reader ([employer] ANA PAULA 2 READER)^1 Each once daily.^Disp: [...] Problems Paternal Grandfather Cancer Paternal Aunt other ([place]) Paternal Aunt Great aunt Colon Cancer No [...] - Instructed patient to contact office or [id number] after-hours promptly should condition worsen or any new symptoms appear. - [facility] and after hours crisis line 2. STD [...] plan. Caryn Lowery APRN.CNP documented in this encounterWright-Patterson Medical Center05-29-2024 History of Present illness Narrative* [...] hurt herself. Also denies having access to [employer]. Alcohol use: does not drink any alcohol Drug use: No Appetite: good Started talking to her aunt who is reported as a clergy woman and trying to get everything figured out but had just found out the truth of her supervisor intermediates boyfriend in the past few days. Tried [...] 30 tablet^Rfl: 0 flash glucose scanning reader ([employer] ANA PAULA 2 READER)^1 Each once daily.^Disp: [...] Problems Paternal Grandfather Cancer Paternal Aunt other ([place]) Paternal Aunt Great aunt Colon Cancer No [...] - Instructed patient to contact office or chqga-pw-rwtt after-hours promptly should condition worsen or any new symptoms appear. - [facility] and after hours crisis line 2. STD [...] plan Caryn Lowery APRN.CNP documented in this encounterWright-Patterson Medical Center04-19-2024 Miscellaneous Notes* Telephone Encounter - [...] you. Kelli Mendoza RN. documented in this encounterWright-Patterson Medical Center04-10-2024 Miscellaneous Notes* Telephone Encounter - [...] 10. : no Protocols used: Eye - Atqpfeye-[id number]-UW, Tlb-WSMBS-AN documented in this encounterWright-Patterson Medical Center04-03-2024 Miscellaneous Notes* Telephone Encounter - [...] faxed. Marita Gonzalez RN documented in this encounterWright-Patterson Medical Center04-02-2024 Miscellaneous Notes* Telephone Encounter - [...] large blood pressure dit to go to. [facility] can not provide. They can not bill for this. Asking pt if she would like this to go to [facility]. Tarah Haider LPN documented in this encounterWright-Patterson Medical Center03-26-2024 Miscellaneous Notes* Telephone Encounter - [...] you. Hope Dickey LPN. documented in this encounterWright-Patterson Medical Center03-14-2024 Miscellaneous Notes* Telephone Encounter - [...] you. Tarah Haider LPN. documented in this encounterWright-Patterson Medical Center02-29-2024 History of Present illness Narrative* Caryn Lowery APRN.PRESALES CONSULTANT - 07/15/2023 2:06 PM EST CC: Patient [...] mL^Rfl: 2 flash glucose sensor ([employer]YLE ANA PUALA 2 SENSOR) kit^USE TO CHECK BLOOD SUGAR [...] 30 tablet^Rfl: 0 flash glucose scanning reader ([employer] ANA PAULA 2 READER)^1 Each once daily.^Disp: [...] Problems Paternal Grandfather Cancer Paternal Aunt other ([place]) Paternal Aunt Great aunt Colon Cancer No [...] plan. Caryn Lowery APRN.JACINTA documented in this encounterWright-Patterson Medical Center02-28-2024 Hospital Discharge instructions Patient Education [...] breathing or swallowing Dizziness, weakness, or fainting [id number] The [employer]. [address] [place] [address]. All rights reserved. This information is not intended as a substitute for professional medical care. Always follow yourhealthcare professional's instructions. Follow Up Care 07/14/2023 18:28:54 With:BABAR PHILLIP Address: [address] [place] [address] [facility] (1) When:2-4 days Comments:Schedule appointment for close follow-up if symptoms or not improving.Continue Zyrtec OR Benadryl until symptoms resolved.Use prednisone and famotidine as prescribed to help suppress the reaction.Return to the ED if symptoms worsen. [facility] 02-28-2024 Emergency department Discharge summary Discharge [...] the ED if symptoms worsen. Where: [address] [place] [address]- Business (1) Allergies amoxicillin codeine penicillin sulfa [...] breathing or swallowing Dizziness, weakness, or fainting 4602-[address] [employer] [place] [address]. All rights reserved. This information is not intended as a substitute for professional medical care. Always follow yourhealthcare professional's instructions. Additional Information VACCINATE! IT SAVES LIVES! Members of the community who have not yet received the COVID-19 vaccine and would like to receive it can visit one of [facility] vaccine clinics. There are many vaccine clinic locations within the [facility]. For locations and available times, please visit www.gettheshot.coronavirus.[place].gov/. It is important to note that some COVID mobile vaccine clinics are held outdoors and may be canceled in rainy or stormy conditions. To learn more about pediatric vaccinations (ages 5-11), we invite you to visit the [facility] webpage. https://www.[facility].org/pages/4053-Rqxen-Rkmrezkxfxr-Pshxcfjcuk-Usyes-Xns stions.htmlTo learn more about the COVID-19 vaccine, we invite you to visit the CDC website for a list of frequently asked questions. https://www.cdc.gov/coronavirus/2019-ncov/vaccines/faq.html [facility] Patient Portal Access Instructions: Stay connected with your healthcare team and access your personal medical information anytime with the [facility] Patient Portal. If you would like a full copy of your medical records please contact the [facility] Medical Records Department Wednesday through Wednesday between 8a.m. and 4:30p.m. Please follow the directions below to access the portal: 1.Access the email account you provided upon registration to the [facility].2.Look for an invitation email from [facility].3.Open the email and access the invitation link: [facility].Fill in the required brewster to create your account. Sign into [email or web address] with your username and password that you [...] you will allow to register on the [facility] Patient Portal for access to your information. You can also access the [facility] Patient Portal on the BetterDoctor. Simply click on Health Records under [place] [employer] and then click on the MedicAnimal.com logo. HOW TO SAFELY DISPOSE OF PRESCRIPTION [...] Call your local pharmacy or go to http://bit.Lima/5U0Xn5o to find one close to you.3.Make use of household items: Use cat litter or old coffee grounds to dispose medications if other options arenot available. Mix your drugs with these household products, seal them in an airtight container andthrow it into the garbage. Call [facility]: [phone] to be sure your drugs can be [...] that I should contact my d octor. Patient/Tier Over Signature: Date/Time: Relationship to Patient: Witness Name/Signature: Date/Time: [facility]02-28-2024 History of Present illness Narrative * Steve Ramirez APRN.PRESALES CONSULTANT - 07/14/2023 8:42 AM EST Images from [...] 30 tablet^Rfl: 0 flash glucose scanning reader (Bacterin International HoldingsYLE ANA PAULA 2 READER)^1 Each once daily.^Disp: [...] Problems Paternal Grandfather Cancer Paternal Aunt other ([place]) Paternal Aunt Great aunt Colon Cancer No [...] of care. This note was generated using [employer] software. It may contain errors in wording, punctuation, or spelling. Steve Ramirez APRN.JACINTA documented in this encounterWright-Patterson Medical Center02-23-2024 History of Present illness Narrative* [...] PATIENT PRESENTS WITH AN IMPLANTABLE OR ATTACHED SYSTEM SUPPORT ADMINISTRATOR: No RADIOLOGY DEPARTMENT: General X-ray: Exam(s) Completed: Chest X-Ray PERIPHERAL IV DATA: Not applicable SIGNED BY: RT Luis(R) July 09, 2023 3:29 PM documented in this encounterWright-Patterson Medical Center02-23-2024 History of Present illness Narrative* Niranjan Stiles PA - 07/09/2023 3:27 PM EST Images from the original note were not included. This note was created using Panopto. Subjective Darren Reinoso is a 43 year [...] 30 tablet^Rfl: 0 flash glucose scanning reader ([employer] ANA PAULA 2 READER)^1 Each once daily.^Disp: [...] Problems Paternal Grandfather Cancer Paternal Aunt other ([place]) Paternal Aunt Great aunt Colon Cancer No [...] ER evaluation. SKYLAR Flores documented in this encounterWright-Patterson Medical Center02-14-2024 History of Present illness Narrative* Shazia Lee APRN.PRESALES CONSULTANT - 06/30/2023 4:16 PM EST This note was created using Panopto. Subjective Darren Reinoso is a 43 year [...] 30 tablet^Rfl: 0 flash glucose scanning reader ([employer] ANA PAULA 2 READER)^1 Each once daily.^Disp: [...] Problems Paternal Grandfather Cancer Paternal Aunt other ([place]) Paternal Aunt Great aunt Colon Cancer No [...] and frontal sinus tenderness present. Mouth/Throat: Lips: Idanha. No lesions. Mouth: Mucous membranes are moist. [...] COVID/influenza/rsv negative with aby Moss TEACHING PROVIDER (Physician/PA/ADMINISTRATOR HEALTH CARE FACILITY) NOTE OF PERSONAL INVOLVEMENT IN CARE: I have personally seen and examined the patient and performed the medical decision-making components. I have reviewed the Advanced Practice Registered Nurse (ADMINISTRATOR HEALTH CARE FACILITY) Student's documentation and verified the findings in the note as written. Any additions or changes are noted in bold/italics. Signature: Shazia Lee Date: 06/30/2023 Time: 6:53 PM documented in this encounterWright-Patterson Medical Center02-14-2024 Miscellaneous Notes* Telephone Encounter - [...] sentences during call, wheezing at times 8. JPTARL-EPDI-PXPUW: worse 9. OTHER SYMPTOMS: as above 10. HIGH RISK DISEASE: yes 11. VACCINE: see history 12. : no 13. O2 SATURATION MONITOR: as above Protocols used: COVID-19 - Diagnosed or Dadgsljgx-QRRKA-KR documented in this encounterWright-Patterson Medical Center12-06-2023 History of Present illness Narrative* [...] 21, 2023 2:38 PM documented in this encounterWright-Patterson Medical Center12-04-2023 Miscellaneous Notes* Telephone Encounter - [...] Thank you. Joyce Fuentes. documented in this encounterWright-Patterson Medical Center12-04-2023 Miscellaneous Notes* Telephone Encounter - [...] you. Hope Dickey LPN. documented in this encounterWright-Patterson Medical Center12-01-2023 Miscellaneous Notes* Telephone Encounter - [...] pt. Tarah Haider LPN documented in this encounterWright-Patterson Medical Center11-27-2023 Instructions* Patient Instructions* Linda Reyez APRN.PRESALES CONSULTANT - 04/12/2023 9:38 AM EST Fact Sheet [...] of LAGEVRIO during to this registry at https://covid-pr.[employer].Taggled or . For individuals who are sexually [...] virus. COVID-19 illnesses have ranged from very yydh-ys-grsvxj, including illness resulting in . While information [...] serious illnesses Take any medicines including prescription, cayn-nqy-gwonlfo medicines, vitamins, and herbal products. How do [...] NG or OG that is size 12 Tajik (FR) or larger. If you miss a [...] to treat people with COVID-19. Go to https://www.fda.gov/odqbubnzn-iasjcuantbnj-grr-response/lgx-iqxsboorhwtzpgd-tzl- policy-framework/mlnkvrrpd-ier-awfnxqfohneiy for more information. It is your choice [...] to FDA MedWatch at www.fda.gov/medwatch or call 6-337-HYQ-3837 (1829.705.5016). How should I store LAGEVRIO? Store LAGEVRIO capsules at room temperature between 68 F to 77 F (20 C to 25 C). Keep LAGEVRIO and all medicines out of the reach of children. How can I learn more about COVID-19? Ask your healthcare provider. Visit www.cdc.gov/COVID19 Contact your local or state public health department. Call [employer] at (toll free in the [place] Visit www.molnupiravir.Taggled What Is an Emergency Use Authorization (EUA)? The [place] FDA has made LAGEVRIO available under an emergency access mechanism called an Emergency Use Authorization (EUA) The EUA is supported by a [employer] Repairer of Health and Human Service ([facility])declaration that circumstances exist to justify emergency use of drugs and biological products during the COVID-19 pandemic. LAGEVRIO for the treatment of adults with a current diagnosis of pnpg-rh-liucyqmj COVID-19 who are at high risk for [...] be used under the EUA). Dannie. for: [employer] [place] [address], [facility] For patent information: www.Lovin' Spoonfuls.Taggled/research/patent Copyright Merck & Co[employer] Inc., [place], [place], [place] and its affiliates. All rights reserved. [id number] Revised: June 2022 documented in this encounterCleveland [id number] History of Present illness Narrative* Linda Reyez APRN.PRESALES CONSULTANT - 04/12/2023 9:23 AM EST VIRTUAL VISIT [...] visit. Either the patient or their legal technical services representative has been informed of the risks [...] COVID. Presents via a virtual visit on Leadjini zoom platform. She does have a medical history significant for DM, HTN, EAMON, asthma, and obesity. No history of CKD, last kidney function done 02/2023 was within normal limits. She has had COVID previously. Symptoms of body aches, not feeling well. Follows with pulmonary with [facility]. Congested. She is on 3 liters [...] 1/2 hr before meal. flash glucose sensor (SeatGeekSTYLE ANA PAULA 2 SENSOR) kit 1 Each [...] Complication, Without Long-Term Current Use of Insulin ([facility]) - 12/13/2017 Anxiety Plantar Fasciitis - 12/17/2016 Hyperlipidemia - 04/27/2016 Low Back Pain With Right-Sided Sciatica - 04/27/2016 Bilateral Hearing Loss - 05/09/2015 Bmi 50.0-59.9, Adult ([facility]) - 05/09/2015 Gerd (Gastroesophageal Reflux Disease) - 08/25/2012 Tobacco Use Disorder - 06/12/2008 Adjustment Disorder With Depressed Mood - 01/06/2005 Comment: Dr. hank bullard at [facility] Social History Tobacco Use Smoking status: [...] X2)-RITONAVIR 100 MG TABLET,DOSE PACK Linda Reyez APRN.PRESALES CONSULTANT Patient verbalizes understanding of instructions from today's [...] development. Linda Reyez APRN.JACINTA documented in this encounterWright-Patterson Medical Center11-03-2023 Miscellaneous Notes* Telephone Encounter - [...] you. Marita Gonzalez RN. documented in this encounterWright-Patterson Medical Center10-18-2023 History of Present illness Narrative* Caryn Lowery APRN.PRESALES CONSULTANT - 03/03/2023 12:32 PM EDT CC: Patient [...] 90 tablet^Rfl: 3 flash glucose scanning reader ([employer] On[employer] ANA PAULA 2 READER)^1 Each once daily.^Disp: [...] Problems Paternal Grandfather Cancer Paternal Aunt other ([place]) Paternal Aunt Great aunt Colon Cancer No [...] - Instructed patient to contact office or uxxgd-zw-virm after-hours promptly should condition worsen or any new symptoms appear. - Counseling [facility] and after hours crisis line - will [...] plan. Caryn Lowery APRN.CNP documented in this encounterWright-Patterson Medical Center10-02-2023 Procedure [facility]08-29-2023 Hospital Discharge instructions Patient Education 01/12/2023 [...] dyes and rinses, soaps, solvents, waxes, fingernail chinese, and deodorants Jewelry or watchbands made of [...] can buy this antihistamine at drug and [employer]. It can make you sleepy, so use [...] skin Yellow-brown crusts on the open blisters 3404-[address] [employer] [place] [address], [place] [address]. All rights reserved. This information is not intended as a substitute for professional medical care. Always follow yourhealthcare professional's instructions. Follow Up Care 01/11/2023 23:11:44 With:BABAR PHILLIP MD Address: [address] [place] [address]- When:2-4 days [facility] 08-29-2023 Note Discharge Instructions Thank you for allowing [facility] to assist you with your healthcare needs. The following is importantdischarge information regarding your hospital visit. Diagnosis from Today's Visit Itching What to Do Next Instructions from Your Care Team No qualifying data available. Post Acute Orders No qualifying data available. You Need to Schedule the Following Appointments Follow Up with BABRA PHILLIP MD When Within 2-4 days Where: [address] [place], [place] [id number]- Allergies amoxicillin codeine penicillin sulfa drugs Medications [...] pharmacies. Medication Leaflets prednisone (PRED virgil sone) Tiago What is the most important information I [...] may report side effects to FDA at 8-996-KGX-6483. What other drugs will affect prednisone? Sometimes [...] may affect prednisone. This includes prescription and tejm-jln-aeskzjp medicines, vitamins, and herbal products. Not all [...] to ensure that the information provided by [employer]. ('[employer]') is accurate, up-to-date, and complete, but no guarantee is made to that effect. Drug information contained herein may be time sensitive. [employer] information has been compiled for use by healthcare practitioners and consumers in the [place] and therefore [employer] does not warrant that uses outside of the [place] are appropriate, unless specifically indicated otherwise. [employer] drug information does not endorse drugs, diagnose patients or recommend therapy. [employer] drug information isan informational resource designed to [...] effective or appropriate for any given patient. [employer] does not assume any responsibility for any aspect of healthcare administered with the aid of information [facility] provides. The information contained herein is not intended to cover all possible uses, directions, precautions, warnings, drug interactions, allergic reactions, or adverse effects. If you have questions about the drugs you are taking, check with your doctor, nurse or pharmacist. Copyright 4665-5739 [employer]. Version: 10.. Revision Date: 08/11/2018. Education Materials [...] dyes and rinses, soaps, solvents, waxes, fingernail chinese, and deodorants Jewelry or watchbands made of [...] itching. You can buy this antihistamine at [employer] and [facility]. It can make you sleepy, so [...] skin Yellow-brown crusts on the open blisters 3640-8727 The [employer]. [address] [place] [address], [place] [address]. All rights reserved. This information is not intended as a substitute for professional medical care. Always follow yourhealthcare professional's instructions. Additional Information VACCINATE! IT SAVES LIVES! Members of the community who have not yet received the COVID-19 vaccine and would like to receive it can visit one of [facility] vaccine clinics. There are many vaccine clinic locations within the [facility]. For locations and available times, please visit www.gettheshot.coronavirus.[place].gov/. It is important to note that some COVID mobile vaccine clinics are held outdoors and may be canceled in rainy or stormy conditions. To learn more about pediatric vaccinations (ages 5-11), we invite you to visit the [employer] [facility] webpage. https://www.[facility].org/pages/6726-Rishe-Zvduvnmtngx-Wquuhyzvcx-Nglfw-Diz stions.htmlTo learn more about the COVID-19 vaccine, we invite you to visit the CDC website for a list of frequently asked questions. https://www.cdc.gov/coronavirus/2019-ncov/vaccines/faq.html [employer] Patient Portal Access Instructions: Stay connected with your healthcare team and access your personal medical information anytime with the [facility] Patient Portal. If you would like a full copy of your medical records please contact the [facility] Medical Records Department Wednesday through Wednesday between 8a.m. and 4:30p.m. Please follow the directions below to access the portal: 1.Access the email account you provided upon registration to the hospital.2.Look for an invitation email from [facility].3.Open the email and access the invitation link: Accept Invitation to [facility]4.Fill in the required brewster to create your account. Sign into [email or web address] with your username and password that you [...] you will allow to register on the [facility] Patient Portal for access to your information. You can also access the [facility] Patient Portal on the 1stGig.com dominguez. Simply click on Health Records under Technical Machine and then click on the MedicAnimal.com logo. HOW TO SAFELY DISPOSE OF PRESCRIPTION [...] Call your local pharmacy or go to http://M2TECH.Lima/[email or web address] to find one close to you.3.Make use of household items: Use cat litter or old coffee grounds to dispose medications if other options arenot available. Mix your drugs with these household products, seal them in an airtight container andthrow it into the garbage. Call [facility]: [phone] to be sure your drugs can be [...] that I should contact my d octor. Patient/Tier Over Signature: Date/Time: Relationship to Patient: Witness Name/Signature: Date/Time: [facility]08-21-2023 Procedure [facility]08-17-2023 History of Present illness Narrative* Caryn Lowery APRN.PRESALES CONSULTANT - 12/31/2022 11:18 AM EDT CC: Patient [...] keep blood sugar up. Has seen a quill machine operator and has follow up appointment in January. [...] 90 tablet^Rfl: 3 flash glucose scanning reader (FREE[employer] - Fitness for the rest of us ANA PAULA 2 READER)^1 Each once daily.^Disp: [...] Problems Paternal Grandfather Cancer Paternal Aunt other ([place]) Paternal Aunt Great aunt Colon Cancer No [...] plan. Caryn Lowery APRN.CNP documented in this encounterWright-Patterson Medical Center08-07-2023 Instructions* Patient Instructions* Ginna Gonzales [...] such as Crystal Light , flavored water, Iuaxp6Y , Minute Maid light lemonade, Propel ) 5. Continue daily activities AND add exercise to at least 30 min cardio 5 days per week or as tolerated; add in weight resistance exercise, preferably 2-3 days per week documented in this encounterWright-Patterson Medical Center08-07-2023 History of Present illness Narrative* [...] such as Crystal Light , flavored water, Yyaod7Y , Minute Maid light lemonade, Propel ) [...] Inflammation: no identifiable sources Education Materials Provided: [id number] Calorie Partial Liquid Protein Diet READINESS TO [...] 2022 TIME: 1:04 PM documented in this encounterWright-Patterson Medical Center08-07-2023 Miscellaneous Notes* Telephone Encounter - Shira Chang LPN - 12/21/2022 9:06 AM EDT [employer] phones requesting refills as follows: Requested Prescriptions Pending Prescriptions Disp Refills omeprazole (PRILOSEC) 40 mg capsule 30 capsule 5 Sig: Take 1 capsule by mouth daily before breakfast. 1/2 hr before meal. flash glucose sensor (FREESTYLE ANA PAULA 2 SENSOR) kit 2 Kit 3 Si Each once daily. ALONSO: 12/14/22 NOV: 12/31/22 Shira Chang LPN documented in this encounterWright-Patterson Medical Center07-28-2023 Miscellaneous Notes* Telephone Encounter - [...] all of the above. documented in this encounterWright-Patterson Medical Center07-27-2023 History of Present illness Narrative* [...] can do at this point is a kmruo-ii-zpks glucose. She declines. Nolab testing available at [...] close follow-up with PCP. documented in this encounterWright-Patterson Medical Center07-11-2023 Miscellaneous Notes* Telephone Encounter - [...] you. Silviano Root RN documented in this encounterWright-Patterson Medical Center07-10-2023 History of Present illness Narrative* Caryn Lowery APRN.PRESALES CONSULTANT - 11/23/2022 11:00 AM EDT CC: Patient [...] 90 tablet^Rfl: 3 flash glucose scanning reader ([employer] ANA PAULA 2 READER)^1 Each once daily.^Disp: [...] Problems Paternal Grandfather Cancer Paternal Aunt other (NV) Paternal Aunt Great aunt Colon Cancer No [...] complication, without long-term current use of insulin ([facility]) - ICD9: 250.00, ICD10: E11.9 (primary diagnosis) [...] plan. Caryn Lowery APRN.CNP documented in this encounterWright-Patterson Medical Center05-12-2023 Miscellaneous Notes* Telephone Encounter - Yuliana Bryson LPN - 09/25/2022 2:06 PM EDT ALONSO--08/24/22 NOV--11/23/22 LAST REFILL--04/15/22 LAST LABS--08/24/22 documented in this encounterWright-Patterson Medical Center04-27-2023 History of Present illness Narrative* Duran Blunt MD - 09/10/2022 2:04 PM EDT Duran Blunt MD Department of Orthopaedics Orthopaedics [address] [place] [address] Dept: [phone] Dept September 10, 2022 CHIEF COMPLAINT: Pain [...] mild degenerative changes in the left shoulder. Transmission Calibration Engineer: PSCB Transcribe Date/Time: Aug 23 2022 4:12P [...] anxiety) Duran Blunt MD documented in this encounterWright-Patterson Medical Center04-20-2023 Miscellaneous Notes* Telephone Encounter - [...] you. Marita Gonzalez RN documented in this encounterWright-Patterson Medical Center04-14-2023 Miscellaneous Notes* Telephone Encounter - [...] you. Marita Gonzalez RN documented in this encounterWright-Patterson Medical Center04-10-2023 Miscellaneous Notes* Telephone Encounter - Kelli Mendoza RN - 08/24/2022 4:20 PM EDT Last Office Visit: 08/24/2022 Future Office Visit: 11/23/2022 Requested Prescriptions Pending Prescriptions Disp Refills dicyclomine (BENTYL) 20 mg tablet 28 tablet 0 Sig: Take 1 tablet by mouth four times daily as needed for up to 7 days. Date of Last Labs: 08/24/2022 documented in this encounterWright-Patterson Medical Center04-10-2023 History of Present illness Narrative* [...] an upcoming appointment with Dr. Gary and [facility] for second opinion as patient is [...] Problems Paternal Grandfather Cancer Paternal Aunt other ([place]) Paternal Aunt Great aunt Colon Cancer No [...] per minute AXIS: Normal axis INTERVALS: Normal ND interval QRS COMPLEX: Normal ST SEGMENT: Normal [...] with more than 50% of the total qnkl-yn-ljzi time of the visit in counseling / coordination of care. Prescription instructions reviewed with patient as applicable. Potential red flag symptoms discussed with the patient. Reviewed appropriate action plan to take if red flag symptoms occur. Patient agreeable to treatment plan. Caryn Lowery APRN.CNP documented in this encounterWright-Patterson Medical Center04-06-2023 History of Present illness Narrative* [...] 20, 2022 2:51 PM documented in this encounterWright-Patterson Medical Center03-20-2023 Procedure [facility]03-14-2023 Miscellaneous Notes* Telephone Encounter - Joyce [...] Is she on any diabetic medications? Babar Medeiros MD * Telephone Encounter - Tete Gonzalez [...] advise patient. Thank you. documented in this encounterWright-Patterson Medical Center03-08-2023 Miscellaneous Notes* Telephone Encounter - Florencia Barrios RN - 07/22/2022 6:04 PM EST Spoke with patient. Given message from provider's office. Patient verbalizes understanding. Florencia Barrios RN * Telephone Encounter - Babar Phillip MD - 07/22/2022 5:52 PM EST Darren, you do not need us to certify or recommend for the medical marijuana, you will find those designated clinic in [place] and can make a sefl referral That's the most we can advice, Sorry Its a Clinic policy. Regards, Babar Phillip MD * Telephone Encounter - Marita Gonzalez RN - 07/22/2022 2:51 PM EST Patient calls to ask if provider would assist her to get an [place] green card for medical marijuana. Notified patient that [facility] provider's don't recommend or support medical marijuana. Patient asked that request be sent to provider to double check that provider isn't willing to writea recommendation. Marita Gonzalez RN documented in this encounterWright-Patterson Medical Center03-08-2023 Miscellaneous Notes* Telephone Encounter - [...] advise, Kelli Mendoza RN documented in this encounterWright-Patterson Medical Center03-03-2023 Miscellaneous Notes* Telephone Encounter - Lela Lea - 07/17/2022 4:34 PM EST Progress notes dated 06/17/22 with SKYLAR Lauren were faxed for you to review; in Epic. Thanks. Lela Mackey documented in this encounterWright-Patterson Medical Center03-03-2023 History of Present illness Narrative* Caryn Lowery, ADMINISTRATOR HEALTH CARE FACILITY.PRESALES CONSULTANT - 07/17/2022 2:22 PM EST CC: Patient [...] Problems Paternal Grandfather Cancer Paternal Aunt other ([place]) Paternal Aunt Great aunt Colon Cancer No [...] GI consult to Dr. Carranza office at [facility] - adding phenergan and dicyclomine as needed [...] plan. Caryn Lowery APRN.CNP documented in this encounterWright-Patterson Medical Center03-02-2023 Miscellaneous Notes* Telephone Encounter - [...] advise. Flores Yanes MA documented in this encounterWright-Patterson Medical Center03-02-2023 Miscellaneous Notes* Telephone Encounter - Caryn Lowery APRN.CNP - 07/16/2022 3:01 PM EST Noted will review in appointment tomorrow. Thank you Caryn Lowery APRN.CNP * Telephone Encounter - Florencia Barrios RN - 07/16/2022 2:19 PM EST Patient calling to say she had an EGD and Colon[facility] at [facility] on 06/30/[address] Roque. She says the results were negative but she is still having stomach issues of right upper abdominal pain, poor appetite, nausea and diarrhea with some occasional rectal bleeding( about one teaspoon). Requesting follow up appointment. Scheduled tomorrow with Caryn. Florencia Barrios RN documented in this encounterWright-Patterson Medical Center02-14-2023 Procedure note* Aravind Roque MD - 06/30/2022 2:43 [place] [address] IMMEDIATE POST ENDOSCOPY PROCEDURE NOTE Patient: DARREN REINOSO ARAVIND ROQUE M.D. [id number] F Status: [facility] Report Date & Time: 06/30/22 1443 Procedure Procedure Performed Study Performed: Upper Endoscopy, Colonoscopy Post Procedure Diagnosis Diagnosis: normal Description of Procedure Description of Procedure: Procedure note dictated, Pictures taken, Colonoscopy, EGD Condition Immediate Post Proc Condition Returned to Pre Procedure <Electronically signed by ARAVIND ROQUE M.D.> 06/30/22 1445 RAAVIND ROQUE M.D. cc: << Signature on File>> Reported By: ARAVIND ROQUE M.D. Signed By: ARAVIND ROQUE M.D. Tests performed at: [facility] [address] [place], [place] [address] documented in this encounterWright-Patterson Medical Center02-01-2023 Instructions* Patient Instructions* Jared Lauren [...] If you do not have a responsible road train driver (family member or friend) withyou to take you home, your exam cannot be done with sedation and will be cancelled. Please bring a list of all of your current medications, including any Jrds-wwk-Nwzmsgl medications with you. Medications If you take [...] your procedure. 2 04/2019 documented in this encounterWright-Patterson Medical Center02-01-2023 History of Present illness Narrative* [...] 17, 2022 2:23 PM documented in this encounterWright-Patterson Medical Center01-25-2023 Miscellaneous Notes* Telephone Encounter - [...] is scheduled to see a provider in [place] regarding getting setup to have the EGD done. Due to her BMI she would need to be scoped at a hospital setting. Please advise patient if there is anything that she can do to help with her discomfort. Teetee Villareal documented in this encounterWright-Patterson Medical Center01-18-2023 Instructions* Patient Instructions* Kelli Mendenhall [...] help alleviate reflux symptoms. documented in this encounterWright-Patterson Medical Center01-18-2023 History of Present illness Narrative* [...] for internal providers or letter via the [employer] for external providers. HPI: Darren [...] it. Did vomit on Wednesdayafter eating at [place] in [place]. Bowel movements are irregular. Can be more [...] Abs Lymph 1.00 - 4.00 k/uL 3.03 [place]% % 6.4 Abs [place] <0.87 k/uL 0.72 Eosin% % 3.8 Abs [...] Problems Paternal Grandfather Cancer Paternal Aunt other ([place]) Paternal Aunt Great aunt Colon Cancer No [...] does not want to travel outside of [place] for testing. Was agreeable to go to [facility] for scope if able. - EGD DIAGNOSTIC; [...] with more than 50% of the total gdoy-ty-jlgf time of the visit in counseling / coordination of care. I have confirmed and edited as necessary, the PFSH and ROS obtained by others. Kelli Mendenhall PA-C June 03, 2022 3:59 PM documented in this encounterWright-Patterson Medical Center01-12-2023 History of Present illness Narrative* Duran Blunt MD - 05/28/2022 3:27 PM EST Patient presents with: Right Knee - Established Patient, Knee Pain Duran Blunt MD Department of Orthopaedics Orthopaedics [address] [facility] [address] Dept: [phone] Dept May 28, 2022 CHIEF COMPLAINT: Established [...] anxiety) Duran Blunt MD documented in this encounterWright-Patterson Medical Center2023 History of Present illness Narrative* Caryn Lowrey, LILI.PRESALES CONSULTANT - 05/25/2022 10:48 AM EST CC: Patient [...] 50 g^Rfl: 5 flash glucose scanning reader ([employer] ANA PAULA 2 READER)^1 Each once daily.^Disp: [...] Problems Paternal Grandfather Cancer Paternal Aunt other ([place]) Paternal Aunt Great aunt Social History Tobacco [...] plan. Caryn Lowery APRN.CNP [place] encounter[place]aura [place] [address]-06-2023 Miscellaneous Notes* Telephone Encounter - Katie Moon [...] asking for rx to be sent to [facility] [place] [facility]. Patient has no glucose meter to [...] 87, 106, 73. Patient scheduled appt with Sourcing Intern for Wednesday. Patient declined same day appt [...] reading with another device. documented in this encounterWright-Patterson Medical Center01-06-2023 Miscellaneous Notes* Telephone Encounter - [...] Advice Protocols used: Diabetes - Low Blood Yujpo-WXLKK-TI documented in this encounterWright-Patterson Medical Center01-03-2023 Miscellaneous Notes* Telephone Encounter - [...] you. Tete Gonzalez RN documented in this encounterWright-Patterson Medical Center12-30-2022 Miscellaneous Notes* Telephone Encounter - [...] you. Marita Gonzalez RN documented in this encounterWright-Patterson Medical Center12-29-2022 Miscellaneous Notes* Telephone Encounter - Florencia Barrios RN - 05/14/2022 2:21 PM EST [facility] calling on behalf of patient for [...] you. Florencia Barrios RN documented in this encounterWright-Patterson Medical Center12-28-2022 Miscellaneous Notes* Telephone Encounter - Deloris Cullen RN - 05/13/2022 9:25 AM EST Phone call to patient. Notified of provider's message below and she verbalized understanding. Appointment scheduled with Dr. Blunt on , 05/28 at [facility]. * Telephone Encounter - Leilani Mahmood PA-C [...] tomorrow. Manju Alejandre LPN documented in this encounterWright-Patterson Medical Center11-30-2022 Miscellaneous Notes* Telephone Encounter - Caryn Lowery APRN.JACINTA - 04/15/2022 7:19 PM EST Discussed in appointment. Caryn Lowery APRN.JACINTA * Telephone Encounter - Samira Davenport Pss - 04/15/2022 10:42 AM EST Patient called stating she has an appt today with Caryn and a CT scheduled for the 8th at [facility]. She is asking if she needs to keep appointment today and if she should try to have CT scheduled sooner. Please call patient and advise. documented in this encounterWright-Patterson Medical Center11-30-2022 History of Present illness Narrative* Caryn Lowery APRN.JACINTA - 04/15/2022 2:43 PM EST CC: Patient presents with: Recheck: Follow up HPI Darren Reinoso is a 42 year old female who presents today for abdominal pain nausea and decreased appetite. Did not get CT scan completed as ordered. Did take the antibiotics that were prescribed. [facility]. Did [...] 21 tablet^Rfl: 0 flash glucose scanning reader ([employer] ANA PAULA 2 READER)^1 Each once daily.^Disp: [...] Problems Paternal Grandfather Cancer Paternal Aunt other ([place]) Paternal Aunt Great aunt Social History Tobacco [...] plan. Caryn Lowery APRN.CNP documented in this encounterWright-Patterson Medical Center11-28-2022 Miscellaneous Notes* Telephone Encounter - [...] one. Please advise patient. documented in this encounterWright-Patterson Medical Center11-23-2022 History of Present illness Narrative* [...] (Sulfonamide Antibiotics) MEDICATIONS flash glucose scanning reader ([employer] ANA PAULA 2 READER)^1 Each once daily.^Disp: [...] Problems Paternal Grandfather Cancer Paternal Aunt other ([place]) Paternal Aunt Great aunt Social History Tobacco [...] plan. Caryn Lowery APRN.CNP documented in this encounterWright-Patterson Medical Center11-14-2022 History of Present illness Narrative* [...] 30, 2022 11:07 AM documented in this encounterWright-Patterson Medical Center11-09-2022 History of Present illness Narrative* [...] Problems Paternal Grandfather Cancer Paternal Aunt other ([place]) Paternal Aunt Great aunt Social History Tobacco [...] plan. Caryn Lowery APRN.CNP documented in this encounterWright-Patterson Medical Center11-04-2022 Miscellaneous Notes* Telephone Encounter - [...] you. Chaparrita Paez RN documented in this encounterWright-Patterson Medical Center10-25-2022 Miscellaneous Notes* Telephone Encounter - [...] fever, but feeling colder Protocols used: Rectal Lttcqach-YYHLF-DF documented in this encounterWright-Patterson Medical Center10-07-2022 History of Present illness Narrative* Caryn Lowery, ADMINISTRATOR HEALTH CARE FACILITY.PRESALES CONSULTANT - 02/20/2022 1:23 PM EDT CC: Patient [...] Problems Paternal Grandfather Cancer Paternal Aunt other ([place]) Paternal Aunt Great aunt Social History Tobacco [...] plan. Caryn Lowery APRN.CNP documented in this encounterWright-Patterson Medical Center09-26-2022 History of Present illness Narrative* [...] 09, 2022 2:44 PM documented in this encounterWright-Patterson Medical Center09-21-2022 Miscellaneous Notes* Telephone Encounter - [...] not what we have. Pts IDnumber is [id number] BIN [id number] Rx group [id number] PCN MCAIDO. Pharmacy report there is no insurance covering this new medicine for weight loss. darren reinoso Araujo: [id number] Marco A CHENG help? Call us at Status Sent to [facility] Mounjaro 2.5MG/0.5ML pen-injectors Form [facility] Medicaid Electronic Prior Authorization Request Form (2016 [...] PA requested. * Telephone Encounter - Yuliana Brsyon LPN - 01/23/2022 1:46 PM EDT Tracie from [facility] calls states pts medication Tirepatide ( Mounjaro) is coming up needing prior Authorization with number . documented in this encounterWright-Patterson Medical Center09-12-2022 Miscellaneous Notes* Telephone Encounter - [...] her PT records from [facility] sent to [facility], and they told her she needs to fill out a consent form. If provider could have the form forPt to fill out so we could get those forms sent over for her, then she would be able to get her back injections. documented in this encounterWright-Patterson Medical Center08-09-2022 Miscellaneous Notes* Telephone Encounter - [...] TABLET BY MOUTH DAILY documented in this encounterWright-Patterson Medical Center08-08-2022 Instructions* Patient Instructions* Anu Lowery [...] worsening infection, call immediately. documented in this encounterWright-Patterson Medical Center08-08-2022 History of Present illness Narrative* Anu Older, ADMINISTRATOR HEALTH CARE FACILITY.PRESALES CONSULTANT - 12/22/2021 3:51 PM EDT Images from [...] Problems Paternal Grandfather Cancer Paternal Aunt other ([place]) Paternal Aunt Great aunt Social History Tobacco [...] plan. Anu Lowery APRN.CNP documented in this encounterWright-Patterson Medical Center08-05-2022 Instructions* Patient Instructions* Sheri De [...] PCP for further treatment documented in this encounterWright-Patterson Medical Center08-05-2022 History of Present illness Narrative* [...] have confirmed and edited as necessary, the [facility] Review of Systems Constitutional: Negative for chills [...] De La Cruz APRN.CNP documented in this encounterWright-Patterson Medical Center08-05-2022 Miscellaneous Notes* Telephone Encounter - [...] size of quarter. Advised to go to [facility] for evaluation. documented in this encounterWright-Patterson Medical Center06-10-2022 Miscellaneous Notes* Telephone Encounter - Caryn Lowery APRN.CNP - 10/24/2021 7:59 AM EDT Noted. Edema and symptoms improved at this time. Caryn Lowery APRN.CNP * Telephone Encounter - Victoria Ackerman [facility] - 10/23/2021 2:44 PM EDT Patient had an order put in by Dr Phillip for an Echo and the insurance has denied it due to Peer to Peer no being done nor has an appeal been filed. This can still be done by calling [phone] for a peer to peer or by faxing for an appeal at [phone] or by mailing appeal to [employer]. Attention Appeals Dept. [address] [place] [address] The patient can not be scheduled for this test until this has been done in some form documented in this encounterWright-Patterson Medical Center06-06-2022 History of Present illness Narrative* Caryn Lowery, LLII.PRESALES CONSULTANT - 10/20/2021 1:33 PM EDT CC: Patient [...] Problems Paternal Grandfather Cancer Paternal Aunt other ([place]) Paternal Aunt Great aunt Social History Tobacco [...] plan. Caryn Lowery APRN.CNP documented in this encounterWright-Patterson Medical Center05-17-2022 Miscellaneous Notes* Telephone Encounter - Shira Chang LPN - 09/30/2021 3:34 PM EDT Erik calling for refill. ALONSO: 07/03/21. No outstanding labs NOV: 6/6/22 Last Refill: 04/08/21 #[phone] 5 refills Shira Chang LPN documented in this encounterWright-Patterson Medical Center05-16-2022 Miscellaneous Notes* Telephone Encounter - [...] Caryn Lowery APRN.CNP * Telephone Encounter - Mairta Gonzalez RN - 09/24/2021 9:51 AM EDT [...] advise, Marita Gonzalez RN documented in this encounterWright-Patterson Medical Center05-11-2022 Miscellaneous Notes* Telephone Encounter - [...] you. Marita Gonzalez RN documented in this encounterWright-Patterson Medical Center03-21-2022 History of Present illness Narrative* Duran Blunt MD - 08/04/2021 2:52 PM EDT Duran Blunt MD Department of Orthopaedics Orthopaedics [address] [place] [address] [facility] [address] Dept: [phone] Dept August 04, 2021 CHIEF COMPLAINT: Post [...] Antibiotics) Duran Blunt MD documented in this encounterWright-Patterson Medical Center12-09-2021 History of Present illness Narrative* [...] 24, 2021 11:48 AM documented in this encounterWright-Patterson Medical Center10-27-2021 History of Present illness Narrative* [...] 12, 2021 2:21 PM documented in this encounterWright-Patterson Medical Center09-10-2021 History of Present illness Narrative* [...] 24, 2021 3:50 PM documented in this encounterWright-Patterson Medical Center07-27-2021 NoteHNO ID: [id number] Author: LIZZY Rodriguez) Service: Radiology Author 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: Doweling 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 Operator Type: Progress Notes Filed: 12/10/2020 6:45 PM [...] BY: RT Jennifer(Carlo) December 10, 2020 6:31 PMNationwide Children'S [id number] History of Present illness Narrative* Ana Gunderson [...] 12, 2020 11:20 AM documented in this encounterWright-Patterson Medical Center10-10-2018 History of Past illness Narrative* Problem Noted Date Resolved Date Epicondylitis, lateral, left 02/23/2018 Overview: Added automatically from request for surgery [id number] Controlled type 2 diabetes m ellitus without complication, without long-term current use of insulin 12/13/2017 06/29/2018 Right elbow pain 03/11/2017 11/02/2019 Overview: Added automatically from request for surgery [id number] Right lateral epicondylitis 03/11/201710/15 Overview: Added automatically from request for surgery [id number] Rectal bleeding 02/25/2017 11/02/2019 Overview: Added automatically from request for surgery [id number] Elbow pain, right 12/17/2016 11/02/2019 Overview: Has [...] of this encounter (statuses as of 08/25/2021) [facility]10-10-2018 History of Past illness Narrative* Problem Noted Date Resolved Date Epicondylitis, lateral, left 02/23/2018 Overview: Added automatically from request for surgery [id number] Controlled type 2 diabetes m ellitus without complication, without long-term current use of insulin 12/13/2017 06/29/2018 Right elbow pain 03/11/2017 11/02/2019 Overview: Added automatically from request for surgery [id number] Right lateral epicondylitis 03/11/201710/15 Overview: Added automatically from request for surgery [id number] Rectal bleeding 02/25/2017 11/02/2019 Overview: Added automatically from request for surgery [id number] Elbow pain, right 12/17/2016 11/02/2019 Overview: Has [...] of this encounter (statuses as of 09/24/2021) [facility]10-10-[facility] History of Past illness Narrative* Problem Noted Date Resolved Date Epicondylitis, lateral, left 02/23/2018 Overview: Added automatically from request for surgery [id number] Controlled type 2 diabetes m ellitus without complication, without long-term current use of insulin 12/13/2017 06/29/2018 Right elbow pain 03/11/2017 11/02/2019 Overview: Added automatically from request for surgery [id number] Right lateral epicondylitis 03/11/201710/15 Overview: Added automatically from request for surgery [id number] Rectal bleeding 02/25/2017 11/02/2019 Overview: Added automatically from request for surgery [id number] Elbow pain, right 12/17/2016 11/02/2019 Overview: Has [...] of this encounter (statuses as of 09/29/2021) [facility]10[facility]10[facility] of Past illness Narrative* Problem Noted Date Resolved Date Epicondylitis, lateral, left 02/23/2018 Overview: Added automatically from request for surgery [id number] Controlled type 2 diabetes m ellitus without complication, without long-term current use of insulin 12/13/2017 06/29/2018 Right elbow pain 03/11/2017 11/02/2019 Overview: Added automatically from request for surgery [id number] Right lateral epicondylitis 03/11/201710/15 Overview: Added automatically from request for surgery [id number] Rectal bleeding 02/25/2017 11/02/2019 Overview: Added automatically from request for surgery [id number] Elbow pain, right 12/17/2016 11/02/2019 Overview: Has [...] of this encounter (statuses as of 10/01/2021) [facility] of Past illness Narrative* Problem Noted Date Resolved Date Epicondylitis, lateral, left 02/23/2018 Overview: Added automatically from request for surgery [id number] Controlled type 2 diabetes m ellitus without complication, without long-term current use of insulin 12/13/2017 06/29/2018 Right elbow pain 03/11/2017 11/02/2019 Overview: Added automatically from request for surgery [id number] Right lateral epicondylitis 03/11/201710/15 Overview: Added automatically from request for surgery [id number] Rectal bleeding 02/25/2017 11/02/2019 Overview: Added automatically from request for surgery [id number] Elbow pain, right 12/17/2016 11/02/2019 Overview: Has [...] of this encounter (statuses as of 10/10/2021) [facility] of Past illness Narrative* Problem Noted Date Resolved Date Epicondylitis, lateral, left 02/23/2018 Overview: Added automatically from request for surgery [id number] Controlled type 2 diabetes m ellitus without complication, without long-term current use of insulin 12/13/2017 06/29/2018 Right elbow pain 03/11/2017 11/02/2019 Overview: Added automatically from request for surgery [id number] Right lateral epicondylitis 03/11/201710/15 Overview: Added automatically from request for surgery [id number] Rectal bleeding 02/25/2017 11/02/2019 Overview: Added automatically from request for surgery [id number] Elbow pain, right 12/17/2016 11/02/2019 Overview: Has [...] of this encounter (statuses as of 10/20/2021) [facility] of Past illness Narrative* Problem Noted Date Resolved Date Epicondylitis, lateral, left 02/23/2018 Overview: Added automatically from request for surgery [id number] Controlled type 2 diabetes m ellitus without complication, without long-term current use of insulin 12/13/2017 06/29/2018 Right elbow pain 03/11/2017 11/02/2019 Overview: Added automatically from request for surgery [id number] Right lateral epicondylitis 03/11/201710/15 Overview: Added automatically from request for surgery [id number] Rectal bleeding 02/25/2017 11/02/2019 Overview: Added automatically from request for surgery [id number] Elbow pain, right 12/17/2016 11/02/2019 Overview: Has [...] of this encounter (statuses as of 10/24/2021) [facility] of Past illness Narrative* Problem Noted Date Resolved Date Epicondylitis, lateral, left 02/23/2018 Overview: Added automatically from request for surgery [id number] Controlled type 2 diabetes m ellitus without complication, without long-term current use of insulin 12/13/2017 06/29/2018 Right elbow pain 03/11/2017 11/02/2019 Overview: Added automatically from request for surgery [id number] Right lateral epicondylitis 03/11/201710/15 Overview: Added automatically from request for surgery [id number] Rectal bleeding 02/25/2017 11/02/2019 Overview: Added automatically from request for surgery [id number] Elbow pain, right 12/17/2016 11/02/2019 Overview: Has [...] of this encounter (statuses as of 12/19/2021) [facility] of [facility] illness Narrative* Problem Noted Date Resolved Date Epicondylitis, lateral, left 02/23/2018 Overview: Added automatically from request for surgery [id number] Controlled type 2 diabetes m ellitus without complication, without long-term current use of insulin 12/13/2017 06/29/2018 Right elbow pain 03/11/2017 11/02/2019 Overview: Added automatically from request for surgery [id number] Right lateral epicondylitis 03/11/201710/15 Overview: Added automatically from request for surgery [id number] Rectal bleeding 02/25/2017 11/02/2019 Overview: Added automatically from request for surgery [id number] Elbow pain, right 12/17/2016 11/02/2019 Overview: Has [...] of this encounter (statuses as of 12/19/2021) [facility] illness Narrative* Problem Noted Date Resolved Date Epicondylitis, lateral, left 02/23/2018 Overview: Added automatically from request for surgery [id number] Controlled type 2 diabetes m ellitus without complication, without long-term current use of insulin 12/13/2017 06/29/2018 Right elbow pain 03/11/2017 11/02/2019 Overview: Added automatically from request for surgery [id number] Right lateral epicondylitis 03/11/201710/15 Overview: Added automatically from request for surgery [id number] Rectal bleeding 02/25/2017 11/02/2019 Overview: Added automatically from request for surgery [id number] Elbow pain, right 12/17/2016 11/02/2019 Overview: Has [...] of this encounter (statuses as of 12/22/2021) [facility] illness Narrative* Problem Noted Date Resolved Date Epicondylitis, lateral, left 02/23/2018 Overview: Added automatically from request for surgery [id number] Controlled type 2 diabetes m rubinaitus without complication, without long-term current use of insulin 12/13/2017 06/29/2018 Right elbow pain 03/11/2017 11/02/2019 Overview: Added automatically from request for surgery [id number] Right lateral epicondylitis 03/11/201710/15 Overview: Added automatically from request for surgery [id number] Rectal bleeding 02/25/2017 11/02/2019 Overview: Added automatically from request for surgery [id number] Elbow pain, right 12/17/2016 11/02/2019 Overview: Has [...] of this encounter (statuses as of 12/24/2021) [facility] of Past illness Narrative* Problem Noted Date Resolved Date Epicondylitis, lateral, left 02/23/2018 Overview: Added automatically from request for surgery [id number] Controlled type 2 diabetes m [place] without complication, without long-term current use of insulin 12/13/2017 06/29/2018 Right elbow pain 03/11/2017 11/02/2019 Overview: Added automatically from request for surgery [id number] Right lateral epicondylitis 03/11/201710/15 Overview: Added automatically from request for surgery [id number] Rectal bleeding 02/25/2017 11/02/2019 Overview: Added automatically from request for surgery [id number] Elbow pain, right 12/17/2016 11/02/2019 Overview: Has [...] of this encounter (statuses as of 01/26/2022) [facility]2018 History of Past illness Narrative* Problem Noted Date Resolved Date Epicondylitis, lateral, left 02/23/2018 Overview: Added automatically from request for surgery [id number] Controlled type 2 diabetes m ell[place] without complication, without long-term current use of insulin 12/13/2017 06/29/2018 Right elbow pain 03/11/2017 11/02/2019 Overview: Added automatically from request for surgery [id number] Right lateral epicondylitis 03/11/201710/15 Overview: Added automatically from request for surgery [id number] Rectal bleeding 02/25/2017 11/02/2019 Overview: Added automatically from request for surgery [id number] Elbow pain, right 12/17/2016 11/02/2019 Overview: Has [...] of this encounter (statuses as of 02/02/2022) [facility]2018 History of Past illness Narrative* Problem Noted Date Resolved Date Epicondylitis, lateral, left 02/23/2018 Overview: Added automatically from request for surgery [id number] Controlled type 2 diabetes m ellitus without complication, without long-term current use of insulin 12/13/2017 06/29/2018 Right elbow pain 03/11/2017 11/02/2019 Overview: Added automatically from request for surgery [id number] Right lateral epicondylitis 03/11/201710/15 Overview: Added automatically from request for surgery [id number] Rectal bleeding 02/25/2017 11/02/2019 Overview: Added automatically from request for surgery [id number] Elbow pain, right 12/17/2016 11/02/2019 Overview: Has [...] of this encounter (statuses as of 02/04/2022) [facility] History of Past illness Narrative* Problem Noted Date Resolved Date Epicondylitis, lateral, left 02/23/2018 Overview: Added automatically from request for surgery [id number] Controlled type 2 diabetes m ell[place] without complication, without long-term current use of insulin 12/13/2017 06/29/2018 Right elbow pain 03/11/2017 11/02/2019 Overview: Added automatically from request for surgery [id number] Right lateral epicondylitis 03/11/201710/15 Overview: Added automatically from request for surgery [id number] Rectal bleeding 02/25/2017 11/02/2019 Overview: Added automatically from request for surgery [id number] Elbow pain, right 12/17/2016 11/02/2019 Overview: Has [...] of this encounter (statuses as of 02/20/2022) [facility] History of Past illness Narrative* Problem Noted Date Resolved Date Epicondylitis, lateral, left 02/23/2018 Overview: Added automatically from request for surgery [id number] Controlled type 2 diabetes m ell[place] without complication, without long-term current use of insulin 12/13/2017 06/29/2018 Right elbow pain 03/11/2017 11/02/2019 Overview: Added automatically from request for surgery [id number] Right lateral epicondylitis 03/11/201710/15 Overview: Added automatically from request for surgery [id number] Rectal bleeding 02/25/2017 11/02/2019 Overview: Added automatically from request for surgery [id number] Elbow pain, right 12/17/2016 11/02/2019 Overview: Has [...] of this encounter (statuses as of 03/10/2022) [facility] History of Past illness Narrative* Problem Noted Date Resolved Date Epicondylitis, lateral, left 02/23/2018 Overview: Added automatically from request for surgery [id number] Controlled type 2 diabetes m rub[place] without complication, without long-term current use of insulin 12/13/2017 06/29/2018 Right elbow pain 03/11/2017 11/02/2019 Overview: Added automatically from request for surgery [id number] Right lateral epicondylitis 03/11/201710/15 Overview: Added automatically from request for surgery [id number] Rectal bleeding 02/25/2017 11/02/2019 Overview: Added automatically from request for surgery [id number] Elbow pain, right 12/17/2016 11/02/2019 Overview: Has [...] of this encounter (statuses as of 03/20/2022) [facility] History of Past illness Narrative* Problem Noted Date Resolved Date Epicondylitis, lateral, left 02/23/2018 Overview: Added automatically from request for surgery [id number] Controlled type 2 diabetes m [place] without complication, without long-term current use of insulin 12/13/2017 06/29/2018 Right elbow pain 03/11/2017 11/02/2019 Overview: Added automatically from request for surgery [id number] Right lateral epicondylitis 03/11/201710/15 Overview: Added automatically from request for surgery [id number] Rectal bleeding 02/25/2017 11/02/2019 Overview: Added automatically from request for surgery [id number] Elbow pain, right 12/17/2016 11/02/2019 Overview: Has [...] of this encounter (statuses as of 03/25/2022) [facility] History of Past illness Narrative* Problem Noted Date Resolved Date Epicondylitis, lateral, left 02/23/2018 Overview: Added automatically from request for surgery [id number] Controlled type 2 diabetes m ell[place] without complication, without long-term current use of insulin 12/13/2017 06/29/2018 Right elbow pain 03/11/2017 11/02/2019 Overview: Added automatically from request for surgery [id number] Right lateral epicondylitis 03/11/201710/15 Overview: Added automatically from request for surgery [id number] Rectal bleeding 02/25/2017 11/02/2019 Overview: Added automatically from request for surgery [id number] Elbow pain, right 12/17/2016 11/02/2019 Overview: Has [...] of this encounter (statuses as of 04/08/2022) [facility] History of Past illness Narrative* Problem Noted Date Resolved Date Epicondylitis, lateral, left 02/23/2018 Overview: Added automatically from request for surgery [id number] Controlled type 2 diabetes m ell[place] without complication, without long-term current use of insulin 12/13/2017 06/29/2018 Right elbow pain 03/11/2017 11/02/2019 Overview: Added automatically from request for surgery [id number] Right lateral epicondylitis 03/11/201710/15 Overview: Added automatically from request for surgery [id number] Rectal bleeding 02/25/2017 11/02/2019 Overview: Added automatically from request for surgery [id number] Elbow pain, right 12/17/2016 11/02/2019 Overview: Has [...] of this encounter (statuses as of 04/13/2022) [facility]2018 History of Past illness Narrative* Problem Noted Date Resolved Date Epicondylitis, lateral, left 02/23/2018 Overview: Added automatically from request for surgery [id number] Controlled type 2 diabetes m ell[place] without complication, without long-term current use of insulin 12/13/2017 06/29/2018 Right elbow pain 03/11/2017 11/02/2019 Overview: Added automatically from request for surgery [id number] Right lateral epicondylitis 03/11/201710/15 Overview: Added automatically from request for surgery [id number] Rectal bleeding 02/25/2017 11/02/2019 Overview: Added automatically from request for surgery [id number] Elbow pain, right 12/17/2016 11/02/2019 Overview: Has [...] of this encounter (statuses as of 04/15/2022) [facility] History of Past illness Narrative* Problem Noted Date Resolved Date Epicondylitis, lateral, left 02/23/2018 Overview: Added automatically from request for surgery [id number] Controlled type 2 diabetes m [place] without complication, without long-term current use of insulin 12/13/2017 06/29/2018 Right elbow pain 03/11/2017 11/02/2019 Overview: Added automatically from request for surgery [id number] Right lateral epicondylitis 03/11/201710/15 Overview: Added automatically from request for surgery [id number] Rectal bleeding 02/25/2017 11/02/2019 Overview: Added automatically from request for surgery [id number] Elbow pain, right 12/17/2016 11/02/2019 Overview: Has [...] of this encounter (statuses as of 04/15/2022) [facility]2018 History of Past illness Narrative* Problem Noted Date Resolved Date Epicondylitis, lateral, left 02/23/2018 Overview: Added automatically from request for surgery [id number] Controlled type 2 diabetes m [place] without complication, without long-term current use of insulin 12/13/2017 06/29/2018 Right elbow pain 03/11/2017 11/02/2019 Overview: Added automatically from request for surgery [id number] Right lateral epicondylitis 03/11/201710/15 Overview: Added automatically from request for surgery [id number] Rectal bleeding 02/25/2017 11/02/2019 Overview: Added automatically from request for surgery [id number] Elbow pain, right 12/17/2016 11/02/2019 Overview: Has [...] of this encounter (statuses as of 05/19/2022) [facility] History of Past illness Narrative* Problem Noted Date Resolved Date Epicondylitis, lateral, left 02/23/2018 Overview: Added automatically from request for surgery [id number] Controlled type 2 diabetes m [place] without complication, without long-term current use of insulin 12/13/2017 06/29/2018 Right elbow pain 03/11/2017 11/02/2019 Overview: Added automatically from request for surgery [id number] Right lateral epicondylitis 03/11/201710/15 Overview: Added automatically from request for surgery [id number] Rectal bleeding 02/25/2017 11/02/2019 Overview: Added automatically from request for surgery [id number] Elbow pain, right 12/17/2016 11/02/2019 Overview: Has [...] of this encounter (statuses as of 05/20/2022) [facility] History of Past illness Narrative* Problem Noted Date Resolved Date Epicondylitis, lateral, left 02/23/2018 Overview: Added automatically from request for surgery [id number] Controlled type 2 diabetes m rub[place] without complication, without long-term current use of insulin 12/13/2017 06/29/2018 Right elbow pain 03/11/2017 11/02/2019 Overview: Added automatically from request for surgery [id number] Right lateral epicondylitis 03/11/201710/15 Overview: Added automatically from request for surgery [id number] Rectal bleeding 02/25/2017 11/02/2019 Overview: Added automatically from request for surgery [id number] Elbow pain, right 12/17/2016 11/02/2019 Overview: Has [...] of this encounter (statuses as of 05/20/2022) [facility] History of Past illness Narrative* Problem Noted Date Resolved Date Epicondylitis, lateral, left 02/23/2018 Overview: Added automatically from request for surgery [id number] Controlled type 2 diabetes m [place] without complication, without long-term current use of insulin 12/13/2017 06/29/2018 Right elbow pain 03/11/2017 11/02/2019 Overview: Added automatically from request for surgery [id number] Right lateral epicondylitis 03/11/201710/15 Overview: Added automatically from request for surgery [id number] Rectal bleeding 02/25/2017 11/02/2019 Overview: Added automatically from request for surgery [id number] Elbow pain, right 12/17/2016 11/02/2019 Overview: Has [...] of this encounter (statuses as of 05/21/2022) [facility] History of Past illness Narrative* Problem Noted Date Resolved Date Epicondylitis, lateral, left 02/23/2018 Overview: Added automatically from request for surgery [id number] Controlled type 2 diabetes m [place] without complication, without long-term current use of insulin 12/13/2017 06/29/2018 Right elbow pain 03/11/2017 11/02/2019 Overview: Added automatically from request for surgery [id number] Right lateral epicondylitis 03/11/201710/15 Overview: Added automatically from request for surgery [id number] Rectal bleeding 02/25/2017 11/02/2019 Overview: Added automatically from request for surgery [id number] Elbow pain, right 12/17/2016 11/02/2019 Overview: Has [...] of this encounter (statuses as of 05/22/2022) [facility] History of Past illness Narrative* Problem Noted Date Resolved Date Epicondylitis, lateral, left 02/23/2018 Overview: Added automatically from request for surgery [id number] Controlled type 2 diabetes m [place] without complication, without long-term current use of insulin 12/13/2017 06/29/2018 Right elbow pain 03/11/2017 11/02/2019 Overview: Added automatically from request for surgery [id number] Right lateral epicondylitis 03/11/201710/15 Overview: Added automatically from request for surgery [id number] Rectal bleeding 02/25/2017 11/02/2019 Overview: Added automatically from request for surgery [id number] Elbow pain, right 12/17/2016 11/02/2019 Overview: Has [...] of this encounter (statuses as of 05/23/2022) [facility] History of Past illness Narrative* Problem Noted Date Resolved Date Epicondylitis, lateral, left 02/23/2018 Overview: Added automatically from request for surgery [id number] Controlled type 2 diabetes m [place] without complication, without long-term current use of insulin 12/13/2017 06/29/2018 Right elbow pain 03/11/2017 11/02/2019 Overview: Added automatically from request for surgery [id number] Right lateral epicondylitis 03/11/201710/15 Overview: Added automatically from request for surgery [id number] Rectal bleeding 02/25/2017 11/02/2019 Overview: Added automatically from request for surgery [id number] Elbow pain, right 12/17/2016 11/02/2019 Overview: Has [...] of this encounter (statuses as of 05/25/2022) [facility] History of Past illness Narrative* Problem Noted Date Resolved Date Epicondylitis, lateral, left 02/23/2018 Overview: Added automatically from request for surgery [id number] Controlled type 2 diabetes m [place] without complication, without long-term current use of insulin 12/13/2017 06/29/2018 Right elbow pain 03/11/2017 11/02/2019 Overview: Added automatically from request for surgery [id number] Right lateral epicondylitis 03/11/201710/15 Overview: Added automatically from request for surgery [id number] Rectal bleeding 02/25/2017 11/02/2019 Overview: Added automatically from request for surgery [id number] Elbow pain, right 12/17/2016 11/02/2019 Overview: Has [...] of this encounter (statuses as of 06/03/2022) [facility] History of Past illness Narrative* Problem Noted Date Resolved Date Epicondylitis, lateral, left 02/23/2018 Overview: Added automatically from request for surgery [id number] Controlled type 2 diabetes m [place] without complication, without long-term current use of insulin 12/13/2017 06/29/2018 Right elbow pain 03/11/2017 11/02/2019 Overview: Added automatically from request for surgery [id number] Right lateral epicondylitis 03/11/201710/15 Overview: Added automatically from request for surgery [id number] Rectal bleeding 02/25/2017 11/02/2019 Overview: Added automatically from request for surgery [id number] Elbow pain, right 12/17/2016 11/02/2019 Overview: Has [...] of this encounter (statuses as of 06/10/2022) [facility] History of Past illness Narrative* Problem Noted Date Resolved Date Epicondylitis, lateral, left 02/23/2018 Overview: Added automatically from request for surgery [id number] Controlled type 2 diabetes m [place] without complication, without long-term current use of insulin 12/13/2017 06/29/2018 Right elbow pain 03/11/2017 11/02/2019 Overview: Added automatically from request for surgery [id number] Right lateral epicondylitis 03/11/201710/15 Overview: Added automatically from request for surgery [id number] Rectal bleeding 02/25/2017 11/02/2019 Overview: Added automatically from request for surgery [id number] Elbow pain, right 12/17/2016 11/02/2019 Overview: Has [...] of this encounter (statuses as of 06/17/2022) [facility] History of Past illness Narrative* Problem Noted Date Resolved Date Epicondylitis, lateral, left 02/23/2018 Overview: Added automatically from request for surgery [id number] Controlled type 2 diabetes m [place] without complication, without long-term current use of insulin 12/13/2017 06/29/2018 Right elbow pain 03/11/2017 11/02/2019 Overview: Added automatically from request for surgery [id number] Right lateral epicondylitis 03/11/201710/15 Overview: Added automatically from request for surgery [id number] Rectal bleeding 02/25/2017 11/02/2019 Overview: Added automatically from request for surgery [id number] Elbow pain, right 12/17/2016 11/02/2019 Overview: Has [...] of this encounter (statuses as of 06/18/2022) [facility] History of Past illness Narrative* Problem Noted Date Resolved Date Epicondylitis, lateral, left 02/23/2018 Overview: Added automatically from request for surgery [id number] Controlled type 2 diabetes m [place] without complication, without long-term current use of insulin 12/13/2017 06/29/2018 Right elbow pain 03/11/2017 11/02/2019 Overview: Added automatically from request for surgery [id number] Right lateral epicondylitis 03/11/201710/15 Overview: Added automatically from request for surgery [id number] Rectal bleeding 02/25/2017 11/02/2019 Overview: Added automatically from request for surgery [id number] Elbow pain, right 12/17/2016 11/02/2019 Overview: Has [...] of this encounter (statuses as of 06/30/2022) [facility] History of Past illness Narrative* Problem Noted Date Resolved Date Epicondylitis, lateral, left 02/23/2018 Overview: Added automatically from request for surgery [id number] Controlled type 2 diabetes m [place] without complication, without long-term current use of insulin 12/13/2017 06/29/2018 Right elbow pain 03/11/2017 11/02/2019 Overview: Added automatically from request for surgery [id number] Right lateral epicondylitis 03/11/201710/15 Overview: Added automatically from request for surgery [id number] Rectal bleeding 02/25/2017 11/02/2019 Overview: Added automatically from request for surgery [id number] Elbow pain, right 12/17/2016 11/02/2019 Overview: Has [...] of this encounter (statuses as of 07/16/2022) [facility] History of Past illness Narrative* Problem Noted Date Resolved Date Epicondylitis, lateral, left 02/23/2018 Overview: Added automatically from request for surgery [id number] Controlled type 2 diabetes m [place] without complication, without long-term current use of insulin 12/13/2017 06/29/2018 Right elbow pain 03/11/2017 11/02/2019 Overview: Added automatically from request for surgery [id number] Right lateral epicondylitis 03/11/201710/15 Overview: Added automatically from request for surgery [id number] Rectal bleeding 02/25/2017 11/02/2019 Overview: Added automatically from request for surgery [id number] Elbow pain, right 12/17/2016 11/02/2019 Overview: Has [...] of this encounter (statuses as of 07/17/2022) [facility] History of Past illness Narrative* Problem Noted Date Resolved Date Epicondylitis, lateral, left 02/23/2018 Overview: Added automatically from request for surgery [id number] Controlled type 2 diabetes m [place] without complication, without long-term current use of insulin 12/13/2017 06/29/2018 Right elbow pain 03/11/2017 11/02/2019 Overview: Added automatically from request for surgery [id number] Right lateral epicondylitis 03/11/201710/15 Overview: Added automatically from request for surgery [id number] Rectal bleeding 02/25/2017 11/02/2019 Overview: Added automatically from request for surgery [id number] Elbow pain, right 12/17/2016 11/02/2019 Overview: Has [...] of this encounter (statuses as of 07/17/2022) [facility] History of Past illness Narrative* Problem Noted Date Resolved Date Epicondylitis, lateral, left 02/23/2018 Overview: Added automatically from request for surgery [id number] Controlled type 2 diabetes m [place] without complication, without long-term current use of insulin 12/13/2017 06/29/2018 Right elbow pain 03/11/2017 11/02/2019 Overview: Added automatically from request for surgery [id number] Right lateral epicondylitis 03/11/201710/15 Overview: Added automatically from request for surgery [id number] Rectal bleeding 02/25/2017 11/02/2019 Overview: Added automatically from request for surgery [id number] Elbow pain, right 12/17/2016 11/02/2019 Overview: Has [...] of this encounter (statuses as of 07/22/2022) [facility] History of Past illness Narrative* Problem Noted Date Resolved Date Epicondylitis, lateral, left 02/23/2018 Overview: Added automatically from request for surgery [id number] Controlled type 2 diabetes m ell[place] without complication, without long-term current use of insulin 12/13/2017 06/29/2018 Right elbow pain 03/11/2017 11/02/2019 Overview: Added automatically from request for surgery [id number] Right lateral epicondylitis 03/11/201710/15 Overview: Added automatically from request for surgery [id number] Rectal bleeding 02/25/2017 11/02/2019 Overview: Added automatically from request for surgery [id number] Elbow pain, right 12/17/2016 11/02/2019 Overview: Has [...] of this encounter (statuses as of 08/13/2022) [facility] History of Past illness Narrative* Problem Noted Date Resolved Date Epicondylitis, lateral, left 02/23/2018 Overview: Added automatically from request for surgery [id number] Controlled type 2 diabetes m [place] without complication, without long-term current use of insulin 12/13/2017 06/29/2018 Right elbow pain 03/11/2017 11/02/2019 Overview: Added automatically from request for surgery [id number] Right lateral epicondylitis 03/11/201710/15 Overview: Added automatically from request for surgery [id number] Rectal bleeding 02/25/2017 11/02/2019 Overview: Added automatically from request for surgery [id number] Elbow pain, right 12/17/2016 11/02/2019 Overview: Has [...] of this encounter (statuses as of 08/24/2022) [facility] History of Past illness Narrative* Problem Noted Date Resolved Date Epicondylitis, lateral, left 02/23/2018 Overview: Added automatically from request for surgery [id number] Controlled type 2 diabetes m [place] without complication, without long-term current use of insulin 12/13/2017 06/29/2018 Right elbow pain 03/11/2017 11/02/2019 Overview: Added automatically from request for surgery [id number] Right lateral epicondylitis 03/11/201710/15 Overview: Added automatically from request for surgery [id number] Rectal bleeding 02/25/2017 11/02/2019 Overview: Added automatically from request for surgery [id number] Elbow pain, right 12/17/2016 11/02/2019 Overview: Has [...] of this encounter (statuses as of 08/27/2022) [facility] History of Past illness Narrative* Problem Noted Date Resolved Date Epicondylitis, lateral, left 02/23/2018 Overview: Added automatically from request for surgery [id number] Controlled type 2 diabetes m [place] without complication, without long-term current use of insulin 12/13/2017 06/29/2018 Right elbow pain 03/11/2017 11/02/2019 Overview: Added automatically from request for surgery [id number] Right lateral epicondylitis 03/11/201710/15 Overview: Added automatically from request for surgery [id number] Rectal bleeding 02/25/2017 11/02/2019 Overview: Added automatically from request for surgery [id number] Elbow pain, right 12/17/2016 11/02/2019 Overview: Has [...] of this encounter (statuses as of 08/29/2022) [facility] History of Past illness Narrative* Problem Noted Date Resolved Date Epicondylitis, lateral, left 02/23/2018 Overview: Added automatically from request for surgery [id number] Controlled type 2 diabetes m ell[place] without complication, without long-term current use of insulin 12/13/2017 06/29/2018 Right elbow pain 03/11/2017 11/02/2019 Overview: Added automatically from request for surgery [id number] Right lateral epicondylitis 03/11/201710/15 Overview: Added automatically from request for surgery [id number] Rectal bleeding 02/25/2017 11/02/2019 Overview: Added automatically from request for surgery [id number] Elbow pain, right 12/17/2016 11/02/2019 Overview: Has [...] of this encounter (statuses as of 09/04/2022) [facility] [facility] of Past illness Narrative* Problem Noted Date Resolved Date Epicondylitis, lateral, left 02/23/2018 Overview: Added automatically from request for surgery [id number] Controlled type 2 diabetes m ellitus without complication, without long-term current use of insulin 12/13/2017 06/29/2018 Right elbow pain 03/11/2017 11/02/2019 Overview: Added automatically from request for surgery [id number] Right lateral epicondylitis 03/11/201710/15 Overview: Added automatically from request for surgery [id number] Rectal bleeding 02/25/2017 11/02/2019 Overview: Added automatically from request for surgery [id number] Elbow pain, right 12/17/2016 11/02/2019 Overview: Has [...] of this encounter (statuses as of 09/25/2022) [facility]10[facility]2018 History of Past illness Narrative* Problem Noted Date Resolved Date Epicondylitis, lateral, left 02/23/2018 Overview: Added automatically from request for surgery [id number] Controlled type 2 diabetes m ellitus without complication, without long-term current use of insulin 12/13/2017 06/29/2018 Right elbow pain 03/11/2017 11/02/2019 Overview: Added automatically from request for surgery [id number] Right lateral epicondylitis 03/11/201710/15 Overview: Added automatically from request for surgery [id number] Rectal bleeding 02/25/2017 11/02/2019 Overview: Added automatically from request for surgery [id number] Elbow pain, right 12/17/2016 11/02/2019 Overview: Has [...] of this encounter (statuses as of 10/13/2022) [facility]10[facility] History of Past illness Narrative* Problem Noted Date Diagnosed Date Resolved Date Epicondylitis, lateral, left 02/23/2018 11/02/2019 Overview: Added automatically from request for surgery [id number] Controlled type 2 diabetes m ellitus without complication, without long-term current use of insulin 12/13/2017 06/29/2018 Right elbow pain 03/11/2017 11/02/2019 Overview: Added automatically from request for surgery [id number] Right lateral epicondylitis 03/11/2017 11/02/2019 Overview: Added automatically from request for surgery [id number] Rectal bleeding 02/25/2017 11/02/2019 Overview: Added automatically from request for surgery [id number] Elbow pain, right 12/17/2016 11/02/2019 Overview: Has [...] of this encounter (statuses as of 11/21/2022) [facility] History of Past illness Narrative* Problem Noted Date Diagnosed Date Resolved Date Epicondylitis, lateral, left 02/23/2018 11/02/2019 Overview: Added automatically from request for surgery [id number] Controlled type 2 diabetes m ellitus without complication, without long-term current use of insulin 12/13/2017 06/29/2018 Right elbow pain 03/11/2017 11/02/2019 Overview: Added automatically from request for surgery [id number] Right lateral epicondylitis 03/11/2017 11/02/2019 Overview: Added automatically from request for surgery [id number] Rectal bleeding 02/25/2017 11/02/2019 Overview: Added automatically from request for surgery [id number] Elbow pain, right 12/17/2016 11/02/2019 Overview: Has [...] of this encounter (statuses as of 11/24/2022) [facility]10[facility] History of Past illness Narrative* Problem Noted Date Diagnosed Date Resolved Date Epicondylitis, lateral, left 02/23/2018 11/02/2019 Overview: Added automatically from request for surgery [id number] Controlled type 2 diabetes m ellitus without complication, without long-term current use of insulin 12/13/2017 06/29/2018 Right elbow pain 03/11/2017 11/02/2019 Overview: Added automatically from request for surgery [id number] Right lateral epicondylitis 03/11/2017 11/02/2019 Overview: Added automatically from request for surgery [id number] Rectal bleeding 02/25/2017 11/02/2019 Overview: Added automatically from request for surgery [id number] Elbow pain, right 12/17/2016 11/02/2019 Overview: Has [...] of this encounter (statuses as of 11/24/2022) [facility]10[facility] History of Past illness Narrative* Problem Noted Date Diagnosed Date Resolved Date Epicondylitis, lateral, left 02/23/2018 11/02/2019 Overview: Added automatically from request for surgery [id number] Controlled type 2 diabetes m ellitus without complication, without long-term current use of insulin 12/13/2017 06/29/2018 Right elbow pain 03/11/2017 11/02/2019 Overview: Added automatically from request for surgery [id number] Right lateral epicondylitis 03/11/2017 11/02/2019 Overview: Added automatically from request for surgery [id number] Rectal bleeding 02/25/2017 11/02/2019 Overview: Added automatically from request for surgery [id number] Elbow pain, right 12/17/2016 11/02/2019 Overview: Has [...] of this encounter (statuses as of 12/03/2022) [facility] History of Past illness Narrative* Problem Noted Date Diagnosed Date Resolved Date Epicondylitis, lateral, left 02/23/2018 11/02/2019 Overview: Added automatically from request for surgery [id number] Controlled type 2 diabetes m ellitus without complication, without long-term current use of insulin 12/13/2017 06/29/2018 Right elbow pain 03/11/2017 11/02/2019 Overview: Added automatically from request for surgery [id number] Right lateral epicondylitis 03/11/2017 11/02/2019 Overview: Added automatically from request for surgery [id number] Rectal bleeding 02/25/2017 11/02/2019 Overview: Added automatically from request for surgery [id number] Elbow pain, right 12/17/2016 11/02/2019 Overview: Has [...] of this encounter (statuses as of 12/11/2022) [facility] History of Past illness Narrative* Problem Noted Date Diagnosed Date Resolved Date Epicondylitis, lateral, left 02/23/2018 11/02/2019 Overview: Added automatically from request for surgery [id number] Controlled type 2 diabetes m ellitus without complication, without long-term current use of insulin 12/13/2017 06/29/2018 Right elbow pain 03/11/2017 11/02/2019 Overview: Added automatically from request for surgery [id number] Right lateral epicondylitis 03/11/2017 11/02/2019 Overview: Added automatically from request for surgery [id number] Rectal bleeding 02/25/2017 11/02/2019 Overview: Added automatically from request for surgery [id number] Elbow pain, right 12/17/2016 11/02/2019 Overview: Has [...] of this encounter (statuses as of 12/12/2022) [facility]10[facility] History of Past illness Narrative* Problem Noted Date Diagnosed Date Resolved Date Epicondylitis, lateral, left 02/23/2018 11/02/2019 Overview: Added automatically from request for surgery [id number] Controlled type 2 diabetes m [place] without complication, without long-term current use of insulin 12/13/2017 06/29/2018 Right elbow pain 03/11/2017 11/02/2019 Overview: Added automatically from request for surgery [id number] Right lateral epicondylitis 03/11/2017 11/02/2019 Overview: Added automatically from request for surgery [id number] Rectal bleeding 02/25/2017 11/02/2019 Overview: Added automatically from request for surgery [id number] Elbow pain, right 12/17/2016 11/02/2019 Overview: Has [...] of this encounter (statuses as of 12/21/2022) [facility] History of Past illness Narrative* Problem Noted Date Diagnosed Date Resolved Date Epicondylitis, lateral, left 02/23/2018 11/02/2019 Overview: Added automatically from request for surgery [id number] Controlled type 2 diabetes m ellitus without complication, without long-term current use of insulin 12/13/2017 06/29/2018 Right elbow pain 03/11/2017 11/02/2019 Overview: Added automatically from request for surgery [id number] Right lateral epicondylitis 03/11/2017 11/02/2019 Overview: Added automatically from request for surgery [id number] Rectal bleeding 02/25/2017 11/02/2019 Overview: Added automatically from request for surgery [id number] Elbow pain, right 12/17/2016 11/02/2019 Overview: Has [...] of this encounter (statuses as of 12/21/2022) [facility] History of Past illness Narrative* Problem Noted Date Diagnosed Date Resolved Date Epicondylitis, lateral, left 02/23/2018 11/02/2019 Overview: Added automatically from request for surgery [id number] Controlled type 2 diabetes m ellitus without complication, without long-term current use of insulin 12/13/2017 06/29/2018 Right elbow pain 03/11/2017 11/02/2019 Overview: Added automatically from request for surgery [id number] Right lateral epicondylitis 03/11/2017 11/02/2019 Overview: Added automatically from request for surgery [id number] Rectal bleeding 02/25/2017 11/02/2019 Overview: Added automatically from request for surgery [id number] Elbow pain, right 12/17/2016 11/02/2019 Overview: Has [...] of this encounter (statuses as of 01/01/2023) [facility] History of Past illness Narrative* Problem Noted Date Diagnosed Date Resolved Date Epicondylitis, lateral, left 02/23/2018 11/02/2019 Overview: Added automatically from request for surgery [id number] Controlled type 2 diabetes m ellitus without complication, without long-term current use of insulin 12/13/2017 06/29/2018 Right elbow pain 03/11/2017 11/02/2019 Overview: Added automatically from request for surgery [id number] Right lateral epicondylitis 03/11/2017 11/02/2019 Overview: Added automatically from request for surgery [id number] Rectal bleeding 02/25/2017 11/02/2019 Overview: Added automatically from request for surgery [id number] Elbow pain, right 12/17/2016 11/02/2019 Overview: Has [...] of this encounter (statuses as of 01/04/2023) [facility] History of Past illness Narrative* Problem Noted Date Diagnosed Date Resolved Date Epicondylitis, lateral, left 02/23/2018 11/02/2019 Overview: Added automatically from request for surgery [id number] Right elbow pain 03/11/2017 11/02/2019 Overview: Added automatically from request for surgery [id number] Right lateral epicondylitis 03/11/2017 11/02/2019 Overview: Added automatically from request for surgery [id number] Rectal bleeding 02/25/2017 11/02/2019 Overview: Added automatically from request for surgery [id number] Elbow pain, right 12/17/2016 11/02/2019 Overview: Has [...] of this encounter (statuses as of 03/06/2023) [facility] History of Past illness Narrative* Problem Noted Date Diagnosed Date Resolved Date Epicondylitis, lateral, left 02/23/2018 11/02/2019 Overview: Added automatically from request for surgery [id number] Right elbow pain 03/11/2017 11/02/2019 Overview: Added automatically from request for surgery [id number] Right lateral epicondylitis 03/11/2017 11/02/2019 Overview: Added automatically from request for surgery [id number] Rectal bleeding 02/25/2017 11/02/2019 Overview: Added automatically from request for surgery [id number] Elbow pain, right 12/17/2016 11/02/2019 Overview: Has [...] of this encounter (statuses as of 03/21/2023) [facility] History of Past illness Narrative* Problem Noted Date Diagnosed Date Resolved Date Epicondylitis, lateral, left 02/23/2018 11/02/2019 Overview: Added automatically from request for surgery [id number] Right elbow pain 03/11/2017 11/02/2019 Overview: Added automatically from request for surgery [id number] Right lateral epicondylitis 03/11/2017 11/02/2019 Overview: Added automatically from request for surgery [id number] Rectal bleeding 02/25/2017 11/02/2019 Overview: Added automatically from request for surgery [id number] Elbow pain, right 12/17/2016 11/02/2019 Overview: Has [...] of this encounter (statuses as of 03/23/2023) [facility] History of Past illness Narrative* Problem Noted Date Diagnosed Date Resolved Date Epicondylitis, lateral, left 02/23/2018 11/02/2019 Overview: Added automatically from request for surgery [id number] Right elbow pain 03/11/2017 11/02/2019 Overview: Added automatically from request for surgery [id number] Right lateral epicondylitis 03/11/2017 11/02/2019 Overview: Added automatically from request for surgery [id number] Rectal bleeding 02/25/2017 11/02/2019 Overview: Added automatically from request for surgery [id number] Elbow pain, right 12/17/2016 11/02/2019 Overview: Has [...] of this encounter (statuses as of 04/09/2023) [facility] History of Past illness Narrative* Problem Noted Date Diagnosed Date Resolved Date Epicondylitis, lateral, left 02/23/2018 11/02/2019 Overview: Added automatically from request for surgery [id number] Right elbow pain 03/11/2017 11/02/2019 Overview: Added automatically from request for surgery [id number] Right lateral epicondylitis 03/11/2017 11/02/2019 Overview: Added automatically from request for surgery [id number] Rectal bleeding 02/25/2017 11/02/2019 Overview: Added automatically from request for surgery [id number] Elbow pain, right 12/17/2016 11/02/2019 Overview: Has [...] of this encounter (statuses as of 04/12/2023) [facility] History of Past illness Narrative* Problem Noted Date Diagnosed Date Resolved Date Epicondylitis, lateral, left 02/23/2018 11/02/2019 Overview: Added automatically from request for surgery [id number] Right elbow pain 03/11/2017 11/02/2019 Overview: Added automatically from request for surgery [id number] Right lateral epicondylitis 03/11/2017 11/02/2019 Overview: Added automatically from request for surgery [id number] Rectal bleeding 02/25/2017 11/02/2019 Overview: Added automatically from request for surgery [id number] Elbow pain, right 12/17/2016 11/02/2019 Overview: Has [...] of this encounter (statuses as of 04/17/2023) [facility] History of Past illness Narrative* Problem Noted Date Diagnosed Date Resolved Date Epicondylitis, lateral, left 02/23/2018 11/02/2019 Overview: Added automatically from request for surgery [id number] Right elbow pain 03/11/2017 11/02/2019 Overview: Added automatically from request for surgery [id number] Right lateral epicondylitis 03/11/2017 11/02/2019 Overview: Added automatically from request for surgery [id number] Rectal bleeding 02/25/2017 11/02/2019 Overview: Added automatically from request for surgery [id number] Elbow pain, right 12/17/2016 11/02/2019 Overview: Has [...] of this encounter (statuses as of 04/20/2023) [facility] History of Past illness Narrative* Problem Noted Date Diagnosed Date Resolved Date Epicondylitis, lateral, left 02/23/2018 11/02/2019 Overview: Added automatically from request for surgery [id number] Right elbow pain 03/11/2017 11/02/2019 Overview: Added automatically from request for surgery [id number] Right lateral epicondylitis 03/11/2017 11/02/2019 Overview: Added automatically from request for surgery [id number] Rectal bleeding 02/25/2017 11/02/2019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 epigastric Vomiting and diarrhea Vomiting alone [facility] Diagnosis Gastroesophageal reflux disease without esophagitis- Primary Esophageal reflux Elbow pain, right Pain in joint, upper arm Chest pain, unspecified type Tobacco use disorder Adjustment disorder with depressed mood BMI 50.0-59.9, adult ([facility]) Body Mass Index 50.0-59.9, adult Plantar fasciitis Plantar fascial fibromatosis Pre-operative examination- Primary Preoperative examination, unspecified Trigger thumb, right thumb Adjustment disorder with depressed mood Mild intermittent asthma with acute exacerbation Unspecified asthma, with exacerbation Bilateral lower extremity edema Edema BMI 50.0-59.9, adult ([facility]) Body Mass Index 50.0-59.9, adult Gastroesophageal reflux [...] Wheezing Other fatigue [facility] Diagnosis Gastroesophageal reflux disease without esophagitis- Primary Esophageal reflux Elbow pain, right Pain in joint, upper arm Chest pain, unspecified type Tobacco use disorder Adjustment disorder with depressed mood BMI 50.0-59.9, adult ([facility]) Body Mass Index 50.0-59.9, adult Plantar fasciitis Plantar fascial fibromatosis Pre-operative examination- Primary Preoperative examination, unspecified Trigger thumb, right thumb Adjustment disorder with depressed mood Mild intermittent asthma with acute exacerbation Unspecified asthma, with exacerbation Bilateral lower extremity edema Edema BMI 50.0-59.9, adult ([facility]) Body Mass Index 50.0-59.9, adult Gastroesophageal reflux disease without esophagitis Esophageal reflux Other hyperlipidemia EAMON (obstructive sleep apnea) Obstructive sleep apnea (adult) (pediatric) Spinal stenosis, lumbar region, without neurogenic claudication Tobacco use disorder Hypothyroidism, unspecified type Prediabetes Other abnormal glucose History of 2019 novel coronavirus disease (COVID-19) Acute cough documented in this encounter [facility] note* Diagnosis Gastroesophageal reflux disease without esophagitis- Primary Esophageal reflux Elbow pain, right Pain in joint, upper arm Chest pain, unspecified type Tobacco use disorder Adjustment disorder with depressed mood BMI 50.0-59.9, adult ([facility]) Body Mass Index 50.0-59.9, adult Plantar fasciitis Plantar fascial fibromatosis Pre-operative examination- Primary Preoperative examination, unspecified Trigger thumb, right thumb Adjustment disorder with depressed mood Mild intermittent asthma with acute exacerbation Unspecified asthma, with exacerbation Bilateral lower extremity edema Edema BMI 50.0-59.9, adult ([facility]) Body Mass Index 50.0-59.9, adult Gastroesophageal reflux disease without esophagitis Esophageal reflux Other hyperlipidemia EAMON (obstructive sleep apnea) Obstructive sleep apnea (adult) (pediatric) Spinal stenosis, lumbar region, without neurogenic claudication Tobacco use disorder Hypothyroidism, unspecified type Prediabetes Other abnormal glucose History of 2019 novel coronavirus disease (COVID-19) Acute cough Shortness of breath COVID-19 virus infection documented in this encounter [facility] note* Diagnosis Gastroesophageal reflux disease without esophagitis- Primary Esophageal reflux Elbow pain, right Pain in joint, upper arm Chest pain, unspecified type Tobacco use disorder Adjustment disorder with depressed mood BMI 50.0-59.9, adult ([facility]) Body Mass Index 50.0-59.9, adult Plantar fasciitis Plantar fascial fibromatosis Pre-operative examination- Primary Preoperative examination, unspecified Trigger thumb, right thumb Adjustment disorder with depressed mood Mild intermittent asthma with acute exacerbation Unspecified asthma, with exacerbation Bilateral lower extremity edema Edema BMI 50.0-59.9, adult ([facility]) Body Mass Index 50.0-59.9, adult Gastroesophageal reflux [...] malaise and fatigue documented in this encounter [facility] note* Diagnosis Gastroesophageal reflux disease without esophagitis- Primary Esophageal reflux Elbow pain, right Pain in joint, upper arm Chest pain, unspecified type Tobacco use disorder Adjustment disorder with depressed mood BMI 50.0-59.9, adult ([facility]) Body Mass Index 50.0-59.9, adult Plantar fasciitis Plantar fascial fibromatosis Pre-operative examination- Primary Preoperative examination, unspecified Trigger thumb, right thumb Adjustment disorder with depressed mood Mild intermittent asthma with acute exacerbation Unspecified asthma, with exacerbation Bilateral lower extremity edema Edema BMI 50.0-59.9, adult ([facility]) Body Mass Index 50.0-59.9, adult Gastroesophageal reflux [...] specified, unspecified location documented in this encounter [facility] note* Diagnosis Gastroesophageal reflux disease without esophagitis- Primary Esophageal reflux Elbow pain, right Pain in joint, upper arm Chest pain, unspecified type Tobacco use disorder Adjustment disorder with depressed mood BMI 50.0-59.9, adult ([facility]) Body Mass Index 50.0-59.9, adult Plantar fasciitis Plantar fascial fibromatosis Pre-operative examination- Primary Preoperative examination, unspecified Trigger thumb, right thumb Adjustment disorder with depressed mood Mild intermittent asthma with acute exacerbation Unspecified asthma, with exacerbation Bilateral lower extremity edema Edema BMI 50.0-59.9, adult ([facility]) Body Mass Index 50.0-59.9, adult Gastroesophageal reflux disease without esophagitis Esophageal reflux Other hyperlipidemia EAMON (obstructive sleep apnea) Obstructive sleep apnea (adult) (pediatric) Spinal stenosis, lumbar region, without neurogenic claudication Tobacco use disorder Hypothyroidism, unspecified type Prediabetes Other abnormal glucose History of 2019 novel coronavirus disease (COVID-19) Acute pain of right knee [facility]* Diagnosis Gastroesophageal reflux disease without esophagitis- Primary Esophageal reflux Elbow pain, right Pain in joint, upper arm Chest pain, unspecified type Tobacco use disorder Adjustment disorder with depressed mood BMI 50.0-59.9, adult ([facility]) Body Mass Index 50.0-59.9, adult Plantar fasciitis Plantar fascial fibromatosis SOB (shortness of breath) Shortness of breath Pre-operative examination- Primary Preoperative examination, unspecified Trigger thumb, right thumb Adjustment disorder with depressed mood Mild intermittent asthma with acute exacerbation Unspecified asthma, with exacerbation Bilateral lower extremity edema Edema BMI 50.0-59.9, adult ([facility]) Body Mass Index 50.0-59.9, adult Gastroesophageal reflux disease without esophagitis Esophageal reflux Other hyperlipidemia EAMON (obstructive sleep apnea) Obstructive sleep apnea (adult) (pediatric) Spinal stenosis, lumbar region, without neurogenic claudication Tobacco use disorder Hypothyroidism, unspecified type Prediabetes Other abnormal glucose History of 2019 novel coronavirus disease (COVID-19) [facility]* Diagnosis Gastroesophageal reflux disease without esophagitis- Primary Esophageal reflux Elbow pain, right Pain in joint, upper arm Chest pain, unspecified type Tobacco use disorder Adjustment disorder with depressed mood BMI 50.0-59.9, adult ([facility]) Body Mass Index 50.0-59.9, adult Plantar fasciitis Plantar fascial fibromatosis Pre-operative examination- Primary Preoperative examination, unspecified Trigger thumb, right thumb Adjustment disorder with depressed mood Mild intermittent asthma with acute exacerbation Unspecified asthma, with exacerbation Bilateral lower extremity edema Edema BMI 50.0-59.9, adult ([facility]) Body Mass Index 50.0-59.9, adult Gastroesophageal reflux disease without esophagitis Esophageal reflux Other hyperlipidemia EAMON (obstructive sleep apnea) Obstructive sleep apnea (adult) (pediatric) Spinal stenosis, lumbar region, without neurogenic claudication Tobacco use disorder Hypothyroidism, unspecified type Prediabetes Other abnormal glucose History of 2019 novel coronavirus disease (COVID-19) Other hyperlipidemia documented in this encounter [facility] note* Diagnosis Gastroesophageal reflux disease without esophagitis- Primary Esophageal reflux Elbow pain, right Pain in joint, upper arm Chest pain, unspecified type Tobacco use disorder Adjustment disorder with depressed mood BMI 50.0-59.9, adult ([facility]) Body Mass Index 50.0-59.9, adult Plantar fasciitis Plantar fascial fibromatosis Pre-operative examination- Primary Preoperative examination, unspecified Trigger thumb, right thumb Adjustment disorder with depressed mood Mild intermittent asthma with acute exacerbation Unspecified asthma, with exacerbation Bilateral lower extremity edema Edema BMI 50.0-59.9, adult ([facility]) Body Mass Index 50.0-59.9, adult Gastroesophageal reflux [...] asthma, with exacerbation [facility]* Diagnosis Gastroesophageal reflux disease without esophagitis- Primary Esophageal reflux Elbow pain, right Pain in joint, upper arm Chest pain, unspecified type Tobacco use disorder Adjustment disorder with depressed mood BMI 50.0-59.9, adult ([facility]) Body Mass Index 50.0-59.9, adult Plantar fasciitis Plantar fascial fibromatosis Bacterial URI Exacerbation of asthma, unspecified asthma severity, unspecified whether persistent Pre-operative examination- Primary Preoperative examination, unspecified Trigger thumb, right thumb Adjustment disorder with depressed mood Mild intermittent asthma with acute exacerbation Unspecified asthma, with exacerbation Bilateral lower extremity edema Edema BMI 50.0-59.9, adult ([facility]) Body Mass Index 50.0-59.9, adult Gastroesophageal reflux disease without esophagitis Esophageal reflux Other hyperlipidemia EAMON (obstructive sleep apnea) Obstructive sleep apnea (adult) (pediatric) Spinal stenosis, lumbar region, without neurogenic claudication Tobacco use disorder Hypothyroidism, unspecified type Prediabetes Other abnormal glucose History of 2019 novel coronavirus disease (COVID-19) [facility]* Diagnosis Gastroesophageal reflux disease without esophagitis- Primary Esophageal reflux Elbow pain, right Pain in joint, upper arm Chest pain, unspecified type Tobacco use disorder Adjustment disorder with depressed mood BMI 50.0-59.9, adult ([facility]) Body Mass Index 50.0-59.9, adult Plantar fasciitis Plantar fascial fibromatosis SOB (shortness of breath) Shortness of breath Pre-operative examination- Primary Preoperative examination, unspecified Trigger thumb, right thumb Adjustment disorder with depressed mood Mild intermittent asthma with acute exacerbation Unspecified asthma, with exacerbation Bilateral lower extremity edema Edema BMI 50.0-59.9, adult ([facility]) Body Mass Index 50.0-59.9, adult Gastroesophageal reflux disease without esophagitis Esophageal reflux Other hyperlipidemia EAMON (obstructive sleep apnea) Obstructive sleep apnea (adult) (pediatric) Spinal stenosis, lumbar region, without neurogenic claudication Tobacco use disorder Hypothyroidism, unspecified type Prediabetes Other abnormal glucose History of 2019 novel coronavirus disease (COVID-19) documented in this encounter [facility] note* Diagnosis Gastroesophageal reflux disease without esophagitis- Primary Esophageal reflux Elbow pain, right Pain in joint, upper arm Chest pain, unspecified type Tobacco use disorder Adjustment disorder with depressed mood BMI 50.0-59.9, adult ([facility]) Body Mass Index 50.0-59.9, adult Plantar fasciitis Plantar fascial fibromatosis Pre-operative examination- Primary Preoperative examination, unspecified Trigger thumb, right thumb Adjustment disorder with depressed mood Mild intermittent asthma with acute exacerbation Unspecified asthma, with exacerbation Bilateral lower extremity edema Edema BMI 50.0-59.9, adult ([facility]) Body Mass Index 50.0-59.9, adult Gastroesophageal reflux disease without esophagitis Esophageal reflux Other hyperlipidemia EAMON (obstructive sleep apnea) Obstructive sleep apnea (adult) (pediatric) Spinal stenosis, lumbar region, without neurogenic claudication Tobacco use disorder Hypothyroidism, unspecified type Prediabetes Other abnormal glucose History of 2019 novel coronavirus disease (COVID-19) Uncontrolled asthma- Primary documented in this encounter [facility] note* Diagnosis Gastroesophageal reflux disease without esophagitis- Primary Esophageal reflux Elbow pain, right Pain in joint, upper arm Chest pain, unspecified type Tobacco use disorder Adjustment disorder with depressed mood BMI 50.0-59.9, adult ([facility]) Body Mass Index 50.0-59.9, adult Plantar fasciitis Plantar fascial fibromatosis Pre-operative examination- Primary Preoperative examination, unspecified Trigger thumb, right thumb Adjustment disorder with depressed mood Mild intermittent asthma with acute exacerbation Unspecified asthma, with exacerbation Bilateral lower extremity edema Edema BMI 50.0-59.9, adult ([facility]) Body Mass Index 50.0-59.9, adult Gastroesophageal reflux [...] arterial blood gases documented in this encounter [facility] note* Diagnosis Gastroesophageal reflux disease without esophagitis- Primary Esophageal reflux Elbow pain, right Pain in joint, upper arm Chest pain, unspecified type Tobacco use disorder Adjustment disorder with depressed mood BMI 50.0-59.9, adult ([facility]) Body Mass Index 50.0-59.9, adult Plantar fasciitis Plantar fascial fibromatosis Pre-operative examination- Primary Preoperative examination, unspecified Trigger thumb, right thumb Adjustment disorder with depressed mood Mild intermittent asthma with acute exacerbation Unspecified asthma, with exacerbation Bilateral lower extremity edema Edema BMI 50.0-59.9, adult ([facility]) Body Mass Index 50.0-59.9, adult Gastroesophageal reflux [...] right upper extremity documented in this encounter [facility] note* Diagnosis Gastroesophageal reflux disease without esophagitis- Primary Esophageal reflux Elbow pain, right Pain in joint, upper arm Chest pain, unspecified type Tobacco use disorder Adjustment disorder with depressed mood BMI 50.0-59.9, adult ([facility]) Body Mass Index 50.0-59.9, adult Plantar fasciitis Plantar fascial fibromatosis Pre-operative examination- Primary Preoperative examination, unspecified Trigger thumb, right thumb Adjustment disorder with depressed mood Mild intermittent asthma with acute exacerbation Unspecified asthma, with exacerbation Bilateral lower extremity edema Edema BMI 50.0-59.9, adult ([facility]) Body Mass Index 50.0-59.9, adult Gastroesophageal reflux disease without esophagitis Esophageal reflux Other hyperlipidemia EAMON (obstructive sleep apnea) Obstructive sleep apnea (adult) (pediatric) Spinal stenosis, lumbar region, without neurogenic claudication Tobacco use disorder Hypothyroidism, unspecified type Prediabetes Other abnormal glucose History of 2019 novel coronavirus disease (COVID-19) 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 ([facility])- Primary Aspergillosis EAMON (obstructive sleep apnea) Obstructive sleep apnea (adult) (pediatric) Uncontrolled asthma [facility]* Diagnosis Gastroesophageal reflux disease without esophagitis- Primary Esophageal reflux Elbow pain, right Pain in joint, upper arm Chest pain, unspecified type Tobacco use disorder Adjustment disorder with depressed mood BMI 50.0-59.9, adult ([facility]) Body Mass Index 50.0-59.9, adult Plantar fasciitis Plantar fascial fibromatosis Pre-operative examination- Primary Preoperative examination, unspecified Trigger thumb, right thumb Adjustment disorder with depressed mood Mild intermittent asthma with acute exacerbation Unspecified asthma, with exacerbation Bilateral lower extremity edema Edema BMI 50.0-59.9, adult ([facility]) Body Mass Index 50.0-59.9, adult Gastroesophageal reflux disease without esophagitis Esophageal reflux Other hyperlipidemia EAMON (obstructive sleep apnea) Obstructive sleep apnea (adult) (pediatric) Spinal stenosis, lumbar region, without neurogenic claudication Tobacco use disorder Hypothyroidism, unspecified type Prediabetes Other abnormal glucose History of 2019 novel coronavirus disease (COVID-19) Bilateral lower extremity edema Edema documented in this encounter [facility] note* Diagnosis Gastroesophageal reflux disease without esophagitis- Primary Esophageal reflux Elbow pain, right Pain in joint, upper arm Chest pain, unspecified type Tobacco use disorder Adjustment disorder with depressed mood BMI 50.0-59.9, adult ([facility]) Body Mass Index 50.0-59.9, adult Plantar fasciitis Plantar fascial fibromatosis Pre-operative examination- Primary Preoperative examination, unspecified Trigger thumb, right thumb Adjustment disorder with depressed mood Mild intermittent asthma with acute exacerbation Unspecified asthma, with exacerbation Bilateral lower extremity edema Edema BMI 50.0-59.9, adult ([facility]) Body Mass Index 50.0-59.9, adult Gastroesophageal reflux disease without esophagitis Esophageal reflux Other hyperlipidemia EAMON (obstructive sleep apnea) Obstructive sleep apnea (adult) (pediatric) Spinal stenosis, lumbar region, without neurogenic claudication Tobacco use disorder Hypothyroidism, unspecified type Prediabetes Other abnormal glucose History of 2019 novel coronavirus disease (COVID-19) Skin infection- Primary Unspecified local infection of skin and subcutaneous tissue documented in this encounter [facility] note* Diagnosis Gastroesophageal reflux disease without esophagitis- Primary Esophageal reflux Elbow pain, right Pain in joint, upper arm Chest pain, unspecified type Tobacco use disorder Adjustment disorder with depressed mood BMI 50.0-59.9, adult ([facility]) Body Mass Index 50.0-59.9, adult Plantar fasciitis Plantar fascial fibromatosis Pre-operative examination- Primary Preoperative examination, unspecified Trigger thumb, right thumb Adjustment disorder with depressed mood Mild intermittent asthma with acute exacerbation Unspecified asthma, with exacerbation Bilateral lower extremity edema Edema BMI 50.0-59.9, adult ([facility]) Body Mass Index 50.0-59.9, adult Gastroesophageal reflux disease without esophagitis Esophageal reflux Other hyperlipidemia EAMON (obstructive sleep apnea) Obstructive sleep apnea (adult) (pediatric) Spinal stenosis, lumbar region, without neurogenic claudication Tobacco use disorder Hypothyroidism, unspecified type Prediabetes Other abnormal glucose History of 2019 novel coronavirus disease (COVID-19) Boil- Primary Carbuncle and furuncle of unspecified site [facility]* Diagnosis Gastroesophageal reflux disease without esophagitis- Primary Esophageal reflux Elbow pain, right Pain in joint, upper arm Chest pain, unspecified type Tobacco use disorder Adjustment disorder with depressed mood BMI 50.0-59.9, adult ([facility]) Body Mass Index 50.0-59.9, adult Plantar fasciitis Plantar fascial fibromatosis Pre-operative examination- Primary Preoperative examination, unspecified Trigger thumb, right thumb Adjustment disorder with depressed mood Mild intermittent asthma with acute exacerbation Unspecified asthma, with exacerbation Bilateral lower extremity edema Edema BMI 50.0-59.9, adult ([facility]) Body Mass Index 50.0-59.9, adult Gastroesophageal reflux [...] nonsurgical wound dressing [facility] Diagnosis Gastroesophageal reflux disease without esophagitis- Primary Esophageal reflux Elbow pain, right Pain in joint, upper arm Chest pain, unspecified type Tobacco use disorder Adjustment disorder with depressed mood BMI 50.0-59.9, adult ([facility]) Body Mass Index 50.0-59.9, adult Plantar fasciitis Plantar fascial fibromatosis Pre-operative examination- Primary Preoperative examination, unspecified Trigger thumb, right thumb Adjustment disorder with depressed mood Mild intermittent asthma with acute exacerbation Unspecified asthma, with exacerbation Bilateral lower extremity edema Edema BMI 50.0-59.9, adult ([facility]) Body Mass Index 50.0-59.9, adult Gastroesophageal reflux disease without esophagitis Esophageal reflux Other hyperlipidemia EAMON (obstructive sleep apnea) Obstructive sleep apnea (adult) (pediatric) Spinal stenosis, lumbar region, without neurogenic claudication Tobacco use disorder Hypothyroidism, unspecified type Prediabetes Other abnormal glucose History of 2019 novel coronavirus disease (COVID-19) 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 ([facility])- Primary Aspergillosis Mild intermittent asthma with acute exacerbation Unspecified asthma, with exacerbation Controlled type 2 diabetes mellitus without complication, without long-term current use of insulin ([facility]) Gastroesophageal reflux disease without esophagitis Esophageal reflux Morbid obesity with BMI of 50.0-59.9, adult ([facility]) Morbid obesity Encounter for immunization Need for other specified prophylactic vaccination against single bacterial disease Essential hypertension Unspecified essential hypertension Other hyperlipidemia [facility]* Diagnosis Gastroesophageal reflux disease without esophagitis- Primary Esophageal reflux Elbow pain, right Pain in joint, upper arm Chest pain, unspecified type Tobacco use disorder Adjustment disorder with depressed mood BMI 50.0-59.9, adult ([facility]) Body Mass Index 50.0-59.9, adult Plantar fasciitis Plantar fascial fibromatosis Pre-operative examination- Primary Preoperative examination, unspecified Trigger thumb, right thumb Adjustment disorder with depressed mood Mild intermittent asthma with acute exacerbation Unspecified asthma, with exacerbation Bilateral lower extremity edema Edema BMI 50.0-59.9, adult ([facility]) Body Mass Index 50.0-59.9, adult Gastroesophageal reflux disease without esophagitis Esophageal reflux Other hyperlipidemia EAMON (obstructive sleep apnea) Obstructive sleep apnea (adult) (pediatric) Spinal stenosis, lumbar region, without neurogenic claudication Tobacco use disorder Hypothyroidism, unspecified type Prediabetes Other abnormal glucose History of 2019 novel coronavirus disease (COVID-19) Cough, unspecified type [facility] Diagnosis Gastroesophageal reflux disease without esophagitis- Primary Esophageal reflux Elbow pain, right Pain in joint, upper arm Chest pain, unspecified type Tobacco use disorder Adjustment disorder with depressed mood BMI 50.0-59.9, adult ([facility]) Body Mass Index 50.0-59.9, adult Plantar fasciitis Plantar fascial fibromatosis Pre-operative examination- Primary Preoperative examination, unspecified Trigger thumb, right thumb Adjustment disorder with depressed mood Mild intermittent asthma with acute exacerbation Unspecified asthma, with exacerbation Bilateral lower extremity edema Edema BMI 50.0-59.9, adult ([facility]) Body Mass Index 50.0-59.9, adult Gastroesophageal reflux disease without esophagitis Esophageal reflux Other hyperlipidemia EAMON (obstructive sleep apnea) Obstructive sleep apnea (adult) (pediatric) Spinal stenosis, lumbar region, without neurogenic claudication Tobacco use disorder Hypothyroidism, unspecified type Prediabetes Other abnormal glucose History of 2019 novel coronavirus disease (COVID-19) Cough, unspecified type documented in this encounter [facility] note* Diagnosis Gastroesophageal reflux disease without esophagitis- Primary Esophageal reflux Elbow pain, right Pain in joint, upper arm Chest pain, unspecified type Tobacco use disorder Adjustment disorder with depressed mood BMI 50.0-59.9, adult ([facility]) Body Mass Index 50.0-59.9, adult Plantar fasciitis Plantar fascial fibromatosis Pre-operative examination- Primary Preoperative examination, unspecified Trigger thumb, right thumb Adjustment disorder with depressed mood Mild intermittent asthma with acute exacerbation Unspecified asthma, with exacerbation Bilateral lower extremity edema Edema BMI 50.0-59.9, adult ([facility]) Body Mass Index 50.0-59.9, adult Gastroesophageal reflux disease without esophagitis Esophageal reflux Other hyperlipidemia EAMON (obstructive sleep apnea) Obstructive sleep apnea (adult) (pediatric) Spinal stenosis, lumbar region, without neurogenic claudication Tobacco use disorder Hypothyroidism, unspecified type Prediabetes Other abnormal glucose History of 2019 novel coronavirus disease (COVID-19) Mild persistent asthma without complication- Primary Unspecified asthma Morbid obesity ([facility]) Morbid obesity Chronic hypoxemic respiratory failure ([facility]) Chronic respiratory failure Lung nodule Solitary pulmonary nodule Cigarette smoker Tobacco use disorder documented in this encounter [facility] note* Diagnosis Gastroesophageal reflux disease without esophagitis- Primary Esophageal reflux Elbow pain, right Pain in joint, upper arm Chest pain, unspecified type Tobacco use disorder Adjustment disorder with depressed mood BMI 50.0-59.9, adult ([facility]) Body Mass Index 50.0-59.9, adult Plantar fasciitis Plantar fascial fibromatosis Pre-operative examination- Primary Preoperative examination, unspecified Trigger thumb, right thumb Adjustment disorder with depressed mood Mild intermittent asthma with acute exacerbation Unspecified asthma, with exacerbation Bilateral lower extremity edema Edema BMI 50.0-59.9, adult ([facility]) Body Mass Index 50.0-59.9, adult Gastroesophageal reflux disease without esophagitis Esophageal reflux Other hyperlipidemia EAMON (obstructive sleep apnea) Obstructive sleep apnea (adult) (pediatric) Spinal stenosis, lumbar region, without neurogenic claudication Tobacco use disorder Hypothyroidism, unspecified type Prediabetes Other abnormal glucose History of 2019 novel coronavirus disease (COVID-19) Controlled type 2 diabetes mellitus without complication, without long-term current use of insulin ([facility])- Primary Morbid obesity with BMI of 50.0-59.9, adult ([facility]) Morbid obesity documented in this encounter [facility] note* Diagnosis Gastroesophageal reflux disease without esophagitis- Primary Esophageal reflux Elbow pain, right Pain in joint, upper arm Chest pain, unspecified type Tobacco use disorder Adjustment disorder with depressed mood BMI 50.0-59.9, adult ([facility]) Body Mass Index 50.0-59.9, adult Plantar fasciitis Plantar fascial fibromatosis Pre-operative examination- Primary Preoperative examination, unspecified Trigger thumb, right thumb Adjustment disorder with depressed mood Mild intermittent asthma with acute exacerbation Unspecified asthma, with exacerbation Bilateral lower extremity edema Edema BMI 50.0-59.9, adult ([facility]) Body Mass Index 50.0-59.9, adult Gastroesophageal reflux [...] cough Acute cough documented in this encounter [facility] note* Diagnosis Gastroesophageal reflux disease without esophagitis- Primary Esophageal reflux Elbow pain, right Pain in joint, upper arm Chest pain, unspecified type Tobacco use disorder Adjustment disorder with depressed mood BMI 50.0-59.9, adult ([facility]) Body Mass Index 50.0-59.9, adult Plantar fasciitis Plantar fascial fibromatosis Pre-operative examination- Primary Preoperative examination, unspecified Trigger thumb, right thumb Adjustment disorder with depressed mood Mild intermittent asthma with acute exacerbation Unspecified asthma, with exacerbation Bilateral lower extremity edema Edema BMI 50.0-59.9, adult ([facility]) Body Mass Index 50.0-59.9, adult Gastroesophageal reflux disease without esophagitis Esophageal reflux Other hyperlipidemia EAMON (obstructive sleep apnea) Obstructive sleep apnea (adult) (pediatric) Spinal stenosis, lumbar region, without neurogenic claudication Tobacco use disorder Hypothyroidism, unspecified type Prediabetes Other abnormal glucose History of 2019 novel coronavirus disease (COVID-19) Acute cough [facility]* Diagnosis Gastroesophageal reflux disease without esophagitis- Primary Esophageal reflux Elbow pain, right Pain in joint, upper arm Chest pain, unspecified type Tobacco use disorder Adjustment disorder with depressed mood BMI 50.0-59.9, adult ([facility]) Body Mass Index 50.0-59.9, adult Plantar fasciitis Plantar fascial fibromatosis Pre-operative examination- Primary Preoperative examination, unspecified Trigger thumb, right thumb Adjustment disorder with depressed mood Mild intermittent asthma with acute exacerbation Unspecified asthma, with exacerbation Bilateral lower extremity edema Edema BMI 50.0-59.9, adult ([facility]) Body Mass Index 50.0-59.9, adult Gastroesophageal reflux disease without esophagitis Esophageal reflux Other hyperlipidemia EAMON (obstructive sleep apnea) Obstructive sleep apnea (adult) (pediatric) Spinal stenosis, lumbar region, without neurogenic claudication Tobacco use disorder Hypothyroidism, unspecified type Prediabetes Other abnormal glucose History of 2019 novel coronavirus disease (COVID-19) Controlled type 2 diabetes mellitus without complication, without long-term current use of insulin ([facility])- Primary Hypothyroidism, unspecified type documented in this encounter [facility] note* Diagnosis Gastroesophageal reflux disease without esophagitis- Primary Esophageal reflux Elbow pain, right Pain in joint, upper arm Chest pain, unspecified type Tobacco use disorder Adjustment disorder with depressed mood BMI 50.0-59.9, adult ([facility]) Body Mass Index 50.0-59.9, adult Plantar fasciitis Plantar fascial fibromatosis Pre-operative examination- Primary Preoperative examination, unspecified Trigger thumb, right thumb Adjustment disorder with depressed mood Mild intermittent asthma with acute exacerbation ([facility]) Unspecified asthma, with exacerbation Bilateral lower extremity edema Edema BMI 50.0-59.9, adult ([facility]) Body Mass Index 50.0-59.9, adult Gastroesophageal reflux disease without esophagitis Esophageal reflux Other hyperlipidemia EAMON (obstructive sleep apnea) Obstructive sleep apnea (adult) (pediatric) Spinal stenosis, lumbar region, without neurogenic claudication Tobacco use disorder Hypothyroidism, unspecified type Prediabetes Other abnormal glucose History of 2019 novel coronavirus disease (COVID-19) Chest pain, unspecified type Dyspnea, unspecified type Wheezing documented in this encounter [facility] note* Diagnosis Gastroesophageal reflux disease without esophagitis- Primary Esophageal reflux Elbow pain, right Pain in joint, upper arm Chest pain, unspecified type Tobacco use disorder Adjustment disorder with depressed mood BMI 50.0-59.9, adult ([facility]) Body Mass Index 50.0-59.9, adult Plantar fasciitis Plantar fascial fibromatosis Pre-operative examination- Primary Preoperative examination, unspecified Trigger thumb, right thumb Adjustment disorder with depressed mood Mild intermittent asthma with acute exacerbation (HCC) Unspecified asthma, with exacerbation Bilateral lower extremity edema Edema BMI 50.0-59.9, adult ([facility]) Body Mass Index 50.0-59.9, adult Gastroesophageal reflux [...] unspecified type Wheezing [facility]* Diagnosis Gastroesophageal reflux disease without esophagitis- Primary Esophageal reflux Elbow pain, right Pain in joint, upper arm Chest pain, unspecified type Tobacco use disorder Adjustment disorder with depressed mood BMI 50.0-59.9, adult ([facility]) Body Mass Index 50.0-59.9, adult Plantar fasciitis Plantar fascial fibromatosis Pre-operative examination- Primary Preoperative examination, unspecified Trigger thumb, right thumb Adjustment disorder with depressed mood Mild intermittent asthma with acute exacerbation (HCC) Unspecified asthma, with exacerbation Bilateral lower extremity edema Edema BMI 50.0-59.9, adult ([facility]) Body Mass Index 50.0-59.9, adult Gastroesophageal reflux disease without esophagitis Esophageal reflux Other hyperlipidemia EAMON (obstructive sleep apnea) Obstructive sleep apnea (adult) (pediatric) Spinal stenosis, lumbar region, without neurogenic claudication Tobacco use disorder Hypothyroidism, unspecified type Prediabetes Other abnormal glucose History of 2019 novel coronavirus disease (COVID-19) Hyperlipidemia Other and unspecified hyperlipidemia documented in this encounter [facility] note* Diagnosis Gastroesophageal reflux disease without esophagitis- Primary Esophageal reflux Elbow pain, right Pain in joint, upper arm Chest pain, unspecified type Tobacco use disorder Adjustment disorder with depressed mood BMI 50.0-59.9, adult ([facility]) Body Mass Index 50.0-59.9, adult Plantar fasciitis [...] Abnormal coagulation profile [facility]* Diagnosis Gastroesophageal reflux disease without esophagitis- Primary Esophageal reflux Elbow pain, right Pain in joint, upper arm Chest pain, unspecified type Tobacco use disorder Adjustment disorder with depressed mood BMI 50.0-59.9, adult ([facility]) Body Mass Index 50.0-59.9, adult Plantar fasciitis Plantar fascial fibromatosis Pre-operative examination- Primary Preoperative examination, unspecified Trigger thumb, right thumb Adjustment disorder with depressed mood Mild intermittent asthma with acute exacerbation (HCC) Unspecified asthma, with exacerbation Bilateral lower extremity edema Edema BMI 50.0-59.9, adult ([facility]) Body Mass Index 50.0-59.9, adult Gastroesophageal reflux [...] Fatigue, unspecified type documented [facility]* Diagnosis Gastroesophageal reflux disease without esophagitis- Primary Esophageal reflux Elbow pain, right Pain in joint, upper arm Chest pain, unspecified type Tobacco use disorder Adjustment disorder with depressed mood BMI 50.0-59.9, adult ([facility]) Body Mass Index 50.0-59.9, adult Plantar fasciitis Plantar fascial fibromatosis Pre-operative examination- Primary Preoperative examination, unspecified Trigger thumb, right thumb Adjustment disorder with depressed mood Mild intermittent asthma with acute exacerbation (HCC) Unspecified asthma, with exacerbation Bilateral lower extremity edema Edema BMI 50.0-59.9, adult ([facility]) Body Mass Index 50.0-59.9, adult Gastroesophageal reflux disease without esophagitis Esophageal reflux Other hyperlipidemia EAMON (obstructive sleep apnea) Obstructive sleep apnea (adult) (pediatric) Spinal stenosis, lumbar region, without neurogenic claudication Tobacco use disorder Hypothyroidism, unspecified type Prediabetes Other abnormal glucose History of 2019 novel coronavirus disease (COVID-19) Controlled type 2 diabetes mellitus without complication, without long-term current use of insulin ([facility]) Morbid obesity with BMI of 50.0-59.9, adult ([facility]) Morbid obesity documented [facility] this [facility]* Diagnosis Gastroesophageal reflux disease without esophagitis- Primary Esophageal reflux Elbow pain, right Pain in joint, upper arm Chest pain, unspecified type Tobacco use disorder Adjustment disorder with depressed mood BMI 50.0-59.9, adult ([facility]) Body Mass Index 50.0-59.9, adult Plantar fasciitis Plantar fascial fibromatosis Pre-operative examination- Primary Preoperative examination, unspecified Trigger thumb, right thumb Adjustment disorder with depressed mood Mild intermittent asthma with acute exacerbation (HCC) Unspecified asthma, with exacerbation Bilateral lower extremity edema Edema BMI 50.0-59.9, adult ([facility]) Body Mass Index 50.0-59.9, adult Gastroesophageal reflux [...] Cigarette smoker Tobacco use disorder Morbid obesity ([facility]) Morbid obesity Chronic hypoxemic respiratory failure (HCC) Chronic respiratory failure Lung nodule Solitary pulmonary nodule documented [facility]* Diagnosis Gastroesophageal reflux disease without esophagitis- Primary Esophageal reflux Elbow pain, right Pain in joint, upper arm Chest pain, unspecified type Tobacco use disorder Adjustment disorder with depressed mood BMI 50.0-59.9, adult ([facility]) Body Mass Index 50.0-59.9, adult Plantar fasciitis Plantar fascial fibromatosis Pre-operative examination- Primary Preoperative examination, unspecified Trigger thumb, right thumb Adjustment disorder with depressed mood Mild intermittent asthma with acute exacerbation (HCC) Unspecified asthma, with exacerbation Bilateral lower extremity edema Edema BMI 50.0-59.9, adult ([facility]) Body Mass Index 50.0-59.9, adult Gastroesophageal reflux [...] and subcutaneous tissue [facility] Diagnosis Gastroesophageal reflux disease without esophagitis- Primary Esophageal reflux Elbow pain, right Pain in joint, upper arm Chest pain, unspecified type Tobacco use disorder Adjustment disorder with depressed mood BMI 50.0-59.9, adult ([facility]) Body Mass Index 50.0-59.9, adult Plantar fasciitis Plantar fascial fibromatosis Pre-operative examination- Primary Preoperative examination, unspecified Trigger thumb, right thumb Adjustment disorder with depressed mood Mild intermittent asthma with acute exacerbation (HCC) Unspecified asthma, with exacerbation Bilateral lower extremity edema Edema BMI 50.0-59.9, adult ([facility]) Body Mass Index 50.0-59.9, adult Gastroesophageal reflux disease without esophagitis Esophageal reflux Other hyperlipidemia EAMON (obstructive sleep apnea) Obstructive sleep apnea (adult) (pediatric) Spinal stenosis, lumbar region, without neurogenic claudication Tobacco use disorder Hypothyroidism, unspecified type Prediabetes Other abnormal glucose History of 2019 novel coronavirus disease (COVID-19) Encounter for screening mammogram for breast cancer [facility] Diagnosis Gastroesophageal reflux disease without esophagitis- Primary Esophageal reflux Elbow pain, right Pain in joint, upper arm Chest pain, unspecified type Tobacco use disorder Adjustment disorder with depressed mood BMI 50.0-59.9, adult ([facility]) Body Mass Index 50.0-59.9, adult Plantar fasciitis [...] of unspecified site [facility] Diagnosis Gastroesophageal reflux disease [...] lower extremity edema Edema BMI 50.0-59.9, adult ([facility]) Body Mass Index 50.0-59.9, adult Gastroesophageal reflux [...] mention of complication [facility] No data available for this section [facility] Hospital Discharge instructionsAdditional Instructions Take the [...] if your symptoms worsen or new symptoms develop.[facility] Work Phone: Progress note No data available for this section [facility] Reason for referral (narrative)* Diagnostic Procedure Only (Routine) - Pending Review Specialty Diagnoses / Procedures Referred By Sophia douglass Referred To Contact [facility] Diagnoses Encounter for screening mammogram for breast cancer Procedures JET SCREENING SCREENING MAMMOGRAPHY BI 2-VIEW BREAST INC CAD Babar Phillip MD [address] [place] [address] [facility] [address] [place] [address] Referral ID Status Reason Start Date Expiration Date Visits Requested Visits Authorized [id number] Pending Review Auto-Generat ed Referral 01/28/2022 02/27/2023 1 1 [facility] for referral (narrative)* Diagnostic Procedure Only (Routine) - Pending Review Specialty Diagnoses / Procedures Referred By Sophia douglass Referred To Contact [facility] Diagnoses RUQ pain Nausea Epigastric pain Diarrhea, unspecified type Procedures US ABD RT UPPER QUADRANT US ABDOMINAL REAL TIME W/IMAGE LIMITED Caryn Loewry APRN.CNP [address] [place] [address] [facility] Referral ID Status Reason Start Date Expiration Date Visits Requested Visits Authorized [id number] Pending Review Auto-Generat ed Referral 03/25/2022 04/24/2023 1 1 [facility] for referral (narrative)* Outpatient Procedure (Routine) - Pending Review Specialty Diagnoses / Procedures Referred By Sophia douglass Referred To Contact [facility] Diagnoses Nausea Epigastric pain Decreased appetite Procedures EGD DIAGNOSTIC ESOPHAGOGASTRODUODENOS COPY TRANSORAL DIAGNOSTIC Kelli Mendenhall PA-C [address] [place] [address] [facility] [address] [address] Referral ID Status Reason Start Date Expiration Date Visits Requested Visits Authorized [id number] Pending Review Auto-Generat ed Referral 06/03/2022 06/03/2023 1 1 [facility] for referral (narrative)* Outpatient Procedure (Routine) - Pending Review Specialty Diagnoses / Procedures Referred By Contac t Referred To Contact [facility] Diagnoses Epigastric pain Nausea and vomiting, unspecified vomiting type Procedures EGD DIAGNOSTIC ESOPHAGOGASTRODUODENOSC OPY TRANSORAL DIAGNOSTIC Jraed Lauren PA-C [facility] [place] [address] [facility] Disease [address] [address] Referral ID Status Reason Start Date Expiration Date Visits Requested Visits Authorized [id number] Pending Review Auto-Generat ed Referral 06/17/2022 06/17/2023 1 1 * Medication Prior Authorization - Closed Specialty Diagnoses / Procedures Referred By Sophia t Referred To Contact Diagnoses Rectal bleeding Diarrhea, unspecified type Jared Lauren PA-C [address] [place] [address] [place] [address] Referral ID Status Reason Start Date Expiration Date Visits Re quested Visits Authorized [id number] Closed 1 1 * Outpatient Procedure (Routine) - Pending Review Specialty Diagnoses / Procedures Referred By Contac t Referred To Contact [facility] Diagnoses Rectal bleeding Diarrhea, unspecified type Procedures COLONOSCOPY DIAGNOSTIC COLONOSCOPY FLX DX W/COLLJ SPEC WHEN PFRMD Jared Lauren PA-C [address] [facility] [place] [address] [facility] [place] [address] [place] [address] Referral ID Status Reason Start Date Expiration Date Visits Requested Visits Authorized [id number] Pending Review Auto-Generat ed Referral 06/17/2022 06/17/2023 1 1 [facility] for referral (narrative)* Outpatient Procedure (Routine) - Pending Review Specialty Diagnoses / Procedures Referred By Contac t Referred To Contact [facility] [place] Diagnoses Shortness of breath Chest pain, unspecified type Procedures ECHO ECHO TTHRC R-T 2D W/WOM-MODE COMPL SPEC&COLR D Caryn Lowery APRN.[employer] [address] [place] [address] [address] Referral ID Status Reason Start Date Expiration Date Visits Requested Visits Authorized [id number] Pending Review Auto-Generat ed Referral 08/24/2022 08/24/2023 1 1 * Outpatient Procedure (Routine) - Authorized Specialty Diagnoses / Procedures Referred By Edwardac t Referred To Contact [facility] [place] Diagnoses Left leg swelling Left leg pain Procedures US LEG VEIN DVT UNL VAS LAB DUP-SCAN XTR VEINS UNILATERAL/LIMITED STUDY Caryn Lowery APRN.[employer] [address] [place] [address] [address] Referral ID Status Reason Start Date Expiration Date Visits Requested Visits Authorized [id number] Authorized Auto-Generat ed Referral 08/24/2022 08/24/2023 1 1 [facility] for referral (narrative)* Diagnostic Procedure Only (Routine) - Pending Review Specialty Diagnoses / Procedures Referred By Sophia t Referred To Contact [facility] Diagnoses Encounter for screening mammogram for breast cancer Procedures JET SCREENING SCREENING MAMMOGRAPHY BI 2-VIEW BREAST INC Babar Islas MD [address] [place] [address] [facility] [address] [place] [address] Referral ID Status Reason Start Date Expiration Date Visits Requested Visits Authorized [id number] Pending Review Auto-Generat ed Referral 12/30/2022 01/29/2024 1 1 [facility] for referral (narrative)* Diagnostic Procedure Only (Routine) - Closed Specialty Diagnoses / Procedures Referred By Contac t Referred To Contact [facility] Diagnoses RUQ pain Nausea Epigastric pain Diarrhea, unspecified type Procedures US ABD RT UPPER QUADRANT US ABDOMINAL REAL TIME W/IMAGE LIMITED Caryn Lowery APRN.[employer] [address] [place] [address] [place] [address] Referral ID Status Reason Start Date Expiration Date V isits Requested Visits Authorized [id number] Closed Auto-Generate d Referral 03/25/2022 04/24/2023 1 1 [facility] for referral (narrative)* Diagnostic Procedure Only (Urgent) - Authorized Specialty Diagnoses / Procedures Referred By Contac t Referred To Contact [facility] Diagnoses Epigastric pain Vomiting and diarrhea Procedures US ABD RIGHT UPPER QUADRANT US ABDOMINAL REAL TIME W/IMAGE LIMITED Caryn Lowery APRN.CNP [address] [place] [address] [place] [address] Referral ID Status Reason Start Date Expiration Date Visits Requested Visits Authorized [id number] Authorized Auto-Generat ed Referral 11/15/2023 12/14/2024 1 1 [facility] for referral (narrative)* Diagnostic Procedure Only (Routine) - New Request Specialty Diagnoses / Procedures Referred By Contac t Referred To Contact [facility] Diagnoses Encounter for screening mammogram for breast cancer Procedures JET SCREENING W ROXANNA SCREENING DIGITAL BREAST TOMOSYNTHESIS BI SCREENING MAMMOGRAPHY BI 2-VIEW BREAST INC Babar Islas MD [address] [place] [address] [facility] [address] [place] [address] Referral ID Status Reason Start Date Expiration Date Visits Requested Visits Authorized [id number] New Request Auto-Generat ed Referral 12/01/2023 12/30/2024 1 1 [facility] for referral (narrative)* Outpatient Procedure (Routine) - New Request Specialty Diagnoses / Procedures Referred By Contac t Referred To [facility] Diagnoses Chest pain, unspecified type Shortness of breath Palpitations Procedures ECG COMPLETE ECG ROUTINE ECG W/LEAST 12 LDS W/I&R Caryn Lowery APRN.CNP [address] [place] [address] [facility] [place] [address] [place] [address] Referral ID Status Reason Start Date Expiration Date Visits Requested Visits Authorized [id number] New Request Auto-Generat ed Referral 01/03/2024 01/02/2025 1 1 [facility] for referral (narrative)* Diagnostic Procedure Only (Routine) - New Request Specialty Diagnoses / Procedures Referred By Contac t Referred To Contact [facility] Diagnoses Right knee pain, unspecified chronicity Procedures XR KNEE GENERAL 4V AP BOTH/PA BOTH/LAT/MERC RIGHT RADIOLOGIC EXAM KNEE COMPLETE 4/MORE VIEWS Duran Blunt MD [address] [place] [address] [place] [address] Referral ID Status Reason Start Date Expiration Date Visits Requested Visits Authorized [id number] New Request Auto-Generat ed Referral 01/19/2024 02/17/2025 1 1 [facility] for referral (narrative)* Diagnostic Procedure Only (Urgent) - Closed Specialty Diagnoses / Procedures Referred By Contac t Referred To Contact [facility] Diagnoses Epigastric pain Vomiting and diarrhea Procedures US ABD RIGHT UPPER QUADRANT US ABDOMINAL REAL TIME W/IMAGE LIMITED Caryn Lowery APRN.[employer] [address] [place] [address] [place] [address] Referral ID Status Reason Start Date Expiration Date V isits Requested Visits Authorized [id number] Closed Auto-Generate d Referral 11/15/2023 12/14/2024 1 1 [facility] for referral (narrative)* Diagnostic Procedure Only (Routine) - Closed Specialty Diagnoses / Procedures Referred By Contac t Referred To Contact [facility] Diagnoses Acute pain of right knee Procedures XR KNEE GENERAL 4V AP BOTH/PA BOTH/LAT/MERC RIGHT RADIOLOGIC EXAM KNEE COMPLETE 4/MORE VIEWS Angelika Osborne APRN.[employer] [address] [place] [address] [place] [address] Referral ID Status Reason Start Date Expiration Date V isits Requested Visits Authorized [id number] Closed Auto-Generate d Referral 05/13/2022 06/12/2023 1 1 [facility] for referral (narrative)* Outpatient Procedure (Routine) - New Request Specialty Diagnoses / Procedures Referred By Contac t Referred To Contact [facility] Diagnoses 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 right upper extremity Procedures EMG(NEURO/NI) NERVE CONDUCTION STUDIES 9-10 STUDIES Duran Blunt MD [address] [place] [address] [facility] [place] [address] [place] [address] Referral ID Status Reason Start Date Expiration Date Visits Requested Visits Authorized [id number] New Request Auto-Generat ed Referral 03/07/2025 1 1 [facility] for referral (narrative)No reason for referral information [facility] Work Phone: Reason for visit Narrative* Diagnostic Procedure Only (Urgent) - Closed Specialty Diagnoses / Procedures Referred By Contac t Referred To Contact [facility] Diagnoses Epigastric pain Vomiting and diarrhea Procedures US ABD RIGHT UPPER QUADRANT US ABDOMINAL REAL TIME W/IMAGE LIMITED Caryn Lowery AD[facility]IST[facility].[employer] [address] [place] [address] [place] [address] Referral ID Status Reason Start Date Expiration Date V isits Requested Visits Authorized [id number] Closed Auto-Generate d Referral 11/15/2023 12/14/2024 1 1 [facility] for visit Narrative* Diagnostic Procedure Only (Routine) - Closed Specialty Diagnoses / Procedures Referred By Contac t Referred To Contact X[facility] IM[facility] Diagnoses Acute pain of right knee Procedures XR KNEE GENERAL 4V AP BOTH/PA BOTH/LAT/MERC RIGHT RADIOLOGIC EXAM KNEE COMPLETE 4/MORE VIEWS Angelika Osborne, ADMINISTRATOR [facility]ARE [facility]ILITY.[employer] [address] [place] [address] [place] [address] Referral ID Status Reason Start Date Expiration Date V isits Requested Visits Authorized [id number] Closed Auto-Generate d Referral 05/13/2022 06/12/2023 1 1 [facility] note* Geraldine Calabrese: PERFORM Event Display: Patient Summary Documents Authored Date: [id number] [facility] Summary Purpose Family History No Family History Records Found Relationship Condition Age at Onset Recorded Date/T kathleen Not Specified Malignant neoplasm of cervix Unknown Arthritis Unknown Depression Unknown mother Cardiac disease Unknown father Hypertension Unknown Advance Directives No Advanced Directives Records FoundDocuments on File Type Date Recorded Patient Tier Over Expl anation Advance Directive(s) Advance Directive(s) 07/02/2021 3:42 PM Advance Directive(s) 07/12/2019 3:17 PM Advance Directive(s) 07/12/2019 3:21 PM Advance Directive(s) 05/18/2018 12:00 PM Advance Directive(s) 04/15/2018 5:08 PM Advance Directive(s) 04/02/2017 10:58 AM Advance Directive(s) 03/02/2017 8:52 AM Advance Directive(s) 02/26/2017 1:59 PM Advance Directive Response Recorded Date/ Time Living Will No July 27, 2022 3:22pm Power of Elementary Spanish Teacher No July 27 3:22pm Advance Directive Response Recorded Date/ Time Living Will No July 27, 2022 2:22pm Power of Elementary Spanish Teacher No July 27 2:22pm Advance Directive Response Recorded Date/ Time Do you have a Healthcare Power of Elementary Spanish Teacher? No December 24, 2024 11:39pm Reason for Referral Specialty Diagnoses / Procedures Referred By Contac t Referred To Contact Gastroenterology Diagnoses Left lower quadrant abdominal pain Nausea Diarrhea, unspecified type Procedures CONSULT TO GASTROENTEROLOGY OFFICE/OUTPATIENT [facility] MDM 60-74 MINUTES Caryn Lowery APRN.PRESALES CONSULTANT [address] [place] [address] Referral ID Status Reason Start Date Expiration Date Visits Requested Visits Authorized [id number] Authorized PCP Requested Referral 2 04/08/2023 1 1 Specialty Diagnoses / Procedures Referred By Contac t Referred To Contact CT IMAGING Diagnoses Left lower quadrant abdominal pain Procedures CT ABD/PEL W IVCON CT ABD & PELVIS W/CONTRAST Caryn Lowery APRN.PRESALES CONSULTANT [address] [place] [address] Ct Imaging Referral ID Status Reason Start Date Expiration Date Visits Requested Visits Authorized [id number] Authorized Auto-Generat ed Referral 2 05/08/2022 1 [...] THERAPY MEDICAL NUTRITION ASSMT&IVNTJ INDIV EACH 15 [place] MEDICAL NUTRITION ASSMT&IVNTJ INDIV EACH 15 [place] MEDICAL NUTRITION ASSMT&IVNTJ INDIV EACH 15 [place] MEDICAL NUTRITION ASSMT&IVNTJ INDIV EACH 15 [place] Caryn Lowery APRN.PRESALES CONSULTANT [address] [place] [address] Referral ID Status Reason Start Date Expiration Date Visits Requested Visits Authorized [id number] Authorized PCP Requested Referral 11/23/2022 11/23/2023 1 1 Specialty Diagnoses / Procedures Referred By Contac t Referred To Contact Gastroenterology Diagnoses Epigastric pain Vomiting and diarrhea Procedures CONSULT TO GASTROENTEROLOGY OFFICE/OUTPATIENT [facility] 60 MINUTES Caryn Lowery APRN.PRESALES CONSULTANT [address] [place] [address] Referral ID Status Reason Start Date Expiration Date Visits Requested Visits Authorized [id number] Authorized PCP Requested Referral 11/16/2023 11/15/2024 1 1 Specialty Diagnoses / Procedures Referred By Contac t Referred To Contact CT IMAGING Diagnoses Chest pain, unspecified type Shortness of breath Palpitations Elevated d-dimer Procedures CT CHEST W IVCON PE DIAGNOSTIC COMPUTED TOMOGRAPHY THORAX W/CONTRAST Caryn Lowery APRN.PRESALES CONSULTANT [address] [place] [address] [place] [address] Referral ID Status Reason Start Date Expiration Date Visits Requested Visits Authorized [id number] New Request Auto-Generat ed Referral 01/05/2024 02/03/2025 1 1 Specialty Diagnoses / Procedures Referred By Contac t Referred To Contact CT IMAGING Diagnoses Shortness of breath Cough, unspecified type Wheezing Low O2 saturation Subacute cough Procedures CT CHEST W IVCON DIAGNOSTIC COMPUTED TOMOGRAPHY THORAX W/CONTRAST Caryn Lowery APRN.PRESALES CONSULTANT [address] [place] [address] [place] [address] Referral ID Status Reason Start Date Expiration Date Visits Requested Visits Authorized [id number] Additional Clinical Info Needed Auto-Generat ed Referral 02/17/2024 03/18/2025 1 1 Specialty Diagnoses / Procedures Referred By Contac t Referred To Contact Diagnoses Mild persistent asthma without complication Elle Boone MD [address] [place] [address] Referral ID Status Reason Start Date Expiration Date V isits Requested Visits Authorized [id number] Pending Review 1 1 Chief Complaint and [...] section and content) DATE CREATED AUTHOR 07/24/2021 [facility] DATE CREATED AUTHOR AUTHOR'S ORGANIZ ATION 07/03/2022 [facility], [facility] DATE CREATED AUTHOR AUTHOR'S ORGANIZ ATION 01/10/2024 [facility] ([place]) DATE CREATED AUTHOR AUTHOR'S ORGANIZ ATION 04/03/2024 [facility] DATE CREATED AUTHOR AUTHOR'S ORGANIZ ATION 12/25/2024 [facility] DATE CREATED AUTHOR AUTHOR'S ORGANIZ ATION 12/25/2024 [facility] DATE CREATED AUTHOR AUTHOR'S ORGANIZ ATION 12/26/2024 [facility] Source Comments (unrecognize d section and content) In the event this informatio n is protected by the Federal Confidentiality of Alcohol and Drug Abuse Patient Records regulations: The Federal rules restrict any use of the information to criminally investigate or prosecute any alcohol or drug abuse patient.[facility] the event this information is protected by the Federal Confidentiality of Alcohol and Drug Abuse Patient Records regulations: The Federal rules restrict any use of the information to criminally investigate or prosecute any alcohol or drug abuse patient.[facility] CenterIn the event this information is protected by the Federal Confidentiality of Alcohol and Drug Abuse Patient Records regulations: The Federal rules restrict any use of the information to criminally investigate or prosecute any alcohol or drug abuse patient.[facility] CenterIn the event this information is protected by the Federal Confidentiality of Alcohol and Drug Abuse Patient Records regulations: The Federal rules restrict any use of the information to criminally investigate or prosecute any alcohol or drug abuse patient.[facility] CenterIn the event this information is protected by the Federal Confidentiality of Alcohol and Drug Abuse Patient Records regulations: The Federal rules restrict any use of the information to criminally investigate or prosecute any alcohol or drug abuse patient.[facility] CenterIn the event this information is protected by the Federal Confidentiality of Alcohol and Drug Abuse Patient Records regulations: The Federal rules restrict any use of the information to criminally investigate or prosecute any alcohol or drug abuse patient.[facility] CenterIn the event this information is protected by the Federal Confidentiality of Alcohol and Drug Abuse Patient Records regulations: The Federal rules restrict any use of the information to criminally investigate or prosecute any alcohol or drug abuse patient.[facility] CenterIn the event this information is protected by the Federal Confidentiality of Alcohol and Drug Abuse Patient Records regulations: The Federal rules restrict any use of the information to criminally investigate or prosecute any alcohol or drug abuse patient.[facility] CenterIn the event this information is protected by the Federal Confidentiality of Alcohol and Drug Abuse Patient Records regulations: The Federal rules restrict any use of the information to criminally investigate or prosecute any alcohol or drug abuse patient.[facility] CenterIn the event this information is protected by the Federal Confidentiality of Alcohol and Drug Abuse Patient Records regulations: The Federal rules restrict any use of the information to criminally investigate or prosecute any alcohol or drug abuse patient.[facility] CenterIn the event this information is protected by the Federal Confidentiality of Alcohol and Drug Abuse Patient Records regulations: The Federal rules restrict any use of the information to criminally investigate or prosecute any alcohol or drug abuse patient.[facility] CenterIn the event this information is protected by the Federal Confidentiality of Alcohol and Drug Abuse Patient Records regulations: The Federal rules restrict any use of the information to criminally investigate or prosecute any alcohol or drug abuse patient.[facility] CenterIn the event this information is protected by the Federal Confidentiality of Alcohol and Drug Abuse Patient Records regulations: The Federal rules restrict any use of the information to criminally investigate or prosecute any alcohol or drug abuse patient.[facility] CenterIn the event this information is protected by the Federal Confidentiality of Alcohol and Drug Abuse Patient Records regulations: The Federal rules restrict any use of the information to criminally investigate or prosecute any alcohol or drug abuse patient.[facility] CenterIn the event this information is protected by the Federal Confidentiality of Alcohol and Drug Abuse Patient Records regulations: The Federal rules restrict any use of the information to criminally investigate or prosecute any alcohol or drug abuse patient.[facility] CenterIn the event this information is protected by the Federal Confidentiality of Alcohol and Drug Abuse Patient Records regulations: The Federal rules restrict any use of the information to criminally investigate or prosecute any alcohol or drug abuse patient.[facility] CenterIn the event this information is protected by the Federal Confidentiality of Alcohol and Drug Abuse Patient Records regulations: The Federal rules restrict any use of the information to criminally investigate or prosecute any alcohol or drug abuse patient.[facility] CenterIn the event this information is protected by the Federal Confidentiality of Alcohol and Drug Abuse Patient Records regulations: The Federal rules restrict any use of the information to criminally investigate or prosecute any alcohol or drug abuse patient.[facility] CenterIn the event this information is protected by the Federal Confidentiality of Alcohol and Drug Abuse Patient Records regulations: The Federal rules restrict any use of the information to criminally investigate or prosecute any alcohol or drug abuse patient.[facility] CenterIn the event this information is protected by the Federal Confidentiality of Alcohol and Drug Abuse Patient Records regulations: The Federal rules restrict any use of the information to criminally investigate or prosecute any alcohol or drug abuse patient.[facility] CenterIn the event this information is protected by the Federal Confidentiality of Alcohol and Drug Abuse Patient Records regulations: The Federal rules restrict any use of the information to criminally investigate or prosecute any alcohol or drug abuse patient.[facility] CenterIn the event this information is protected by the Federal Confidentiality of Alcohol and Drug Abuse Patient Records regulations: The Federal rules restrict any use of the information to criminally investigate or prosecute any alcohol or drug abuse patient.[facility] CenterIn the event this information is protected by the Federal Confidentiality of Alcohol and Drug Abuse Patient Records regulations: The Federal rules restrict any use of the information to criminally investigate or prosecute any alcohol or drug abuse patient.[facility] CenterIn the event this information is protected by the Federal Confidentiality of Alcohol and Drug Abuse Patient Records regulations: The Federal rules restrict any use of the information to criminally investigate or prosecute any alcohol or drug abuse patient.[facility] CenterIn the event this information is protected by the Federal Confidentiality of Alcohol and Drug Abuse Patient Records regulations: The Federal rules restrict any use of the information to criminally investigate or prosecute any alcohol or drug abuse patient.[facility] CenterIn the event this information is protected by the Federal Confidentiality of Alcohol and Drug Abuse Patient Records regulations: The Federal rules restrict any use of the information to criminally investigate or prosecute any alcohol or drug abuse patient.[facility] CenterIn the event this information is protected by the Federal Confidentiality of Alcohol and Drug Abuse Patient Records regulations: The Federal rules restrict any use of the information to criminally investigate or prosecute any alcohol or drug abuse patient.[facility] CenterIn the event this information is protected by the Federal Confidentiality of Alcohol and Drug Abuse Patient Records regulations: The Federal rules restrict any use of the information to criminally investigate or prosecute any alcohol or drug abuse patient.[facility] CenterIn the event this information is protected by the Federal Confidentiality of Alcohol and Drug Abuse Patient Records regulations: The Federal rules restrict any use of the information to criminally investigate or prosecute any alcohol or drug abuse patient.[facility] CenterIn the event this information is protected by the Federal Confidentiality of Alcohol and Drug Abuse Patient Records regulations: The Federal rules restrict any use of the information to criminally investigate or prosecute any alcohol or drug abuse patient.[facility] CenterIn the event this information is protected by the Federal Confidentiality of Alcohol and Drug Abuse Patient Records regulations: The Federal rules restrict any use of the information to criminally investigate or prosecute any alcohol or drug abuse patient.[facility] CenterIn the event this information is protected by the Federal Confidentiality of Alcohol and Drug Abuse Patient Records regulations: The Federal rules restrict any use of the information to criminally investigate or prosecute any alcohol or drug abuse patient.[facility] CenterIn the event this information is protected by the Federal Confidentiality of Alcohol and Drug Abuse Patient Records regulations: The Federal rules restrict any use of the information to criminally investigate or prosecute any alcohol or drug abuse patient.[facility] CenterIn the event this information is protected by the Federal Confidentiality of Alcohol and Drug Abuse Patient Records regulations: The Federal rules restrict any use of the information to criminally investigate or prosecute any alcohol or drug abuse patient.[facility] CenterIn the event this information is protected by the Federal Confidentiality of Alcohol and Drug Abuse Patient Records regulations: The Federal rules restrict any use of the information to criminally investigate or prosecute any alcohol or drug abuse patient.[facility] CenterIn the event this information is protected by the Federal Confidentiality of Alcohol and Drug Abuse Patient Records regulations: The Federal rules restrict any use of the information to criminally investigate or prosecute any alcohol or drug abuse patient.[facility] CenterIn the event this information is protected by the Federal Confidentiality of Alcohol and Drug Abuse Patient Records regulations: The Federal rules restrict any use of the information to criminally investigate or prosecute any alcohol or drug abuse patient.[facility] CenterIn the event this information is protected by the Federal Confidentiality of Alcohol and Drug Abuse Patient Records regulations: The Federal rules restrict any use of the information to criminally investigate or prosecute any alcohol or drug abuse patient.[facility] CenterIn the event this information is protected by the Federal Confidentiality of Alcohol and Drug Abuse Patient Records regulations: The Federal rules restrict any use of the information to criminally investigate or prosecute any alcohol or drug abuse patient.[facility] CenterIn the event this information is protected by the Federal Confidentiality of Alcohol and Drug Abuse Patient Records regulations: The Federal rules restrict any use of the information to criminally investigate or prosecute any alcohol or drug abuse patient.[facility] CenterIn the event this information is protected by the Federal Confidentiality of Alcohol and Drug Abuse Patient Records regulations: The Federal rules restrict any use of the information to criminally investigate or prosecute any alcohol or drug abuse patient.[facility] CenterIn the event this information is protected by the Federal Confidentiality of Alcohol and Drug Abuse Patient Records regulations: The Federal rules restrict any use of the information to criminally investigate or prosecute any alcohol or drug abuse patient.[facility] CenterIn the event this information is protected by the Federal Confidentiality of Alcohol and Drug Abuse Patient Records regulations: The Federal rules restrict any use of the information to criminally investigate or prosecute any alcohol or drug abuse patient.[facility] CenterIn the event this information is protected by the Federal Confidentiality of Alcohol and Drug Abuse Patient Records regulations: The Federal rules restrict any use of the information to criminally investigate or prosecute any alcohol or drug abuse patient.[facility] CenterIn the event this information is protected by the Federal Confidentiality of Alcohol and Drug Abuse Patient Records regulations: The Federal rules restrict any use of the information to criminally investigate or prosecute any alcohol or drug abuse patient.[facility] CenterIn the event this information is protected by the Federal Confidentiality of Alcohol and Drug Abuse Patient Records regulations: The Federal rules restrict any use of the information to criminally investigate or prosecute any alcohol or drug abuse patient.[facility] CenterIn the event this information is protected by the Federal Confidentiality of Alcohol and Drug Abuse Patient Records regulations: The Federal rules restrict any use of the information to criminally investigate or prosecute any alcohol or drug abuse patient.[facility] CenterIn the event this information is protected by the Federal Confidentiality of Alcohol and Drug Abuse Patient Records regulations: The Federal rules restrict any use of the information to criminally investigate or prosecute any alcohol or drug abuse patient.[facility] CenterIn the event this information is protected by the Federal Confidentiality of Alcohol and Drug Abuse Patient Records regulations: The Federal rules restrict any use of the information to criminally investigate or prosecute any alcohol or drug abuse patient.[facility] CenterIn the event this information is protected by the Federal Confidentiality of Alcohol and Drug Abuse Patient Records regulations: The Federal rules restrict any use of the information to criminally investigate or prosecute any alcohol or drug abuse patient.[facility] CenterIn the event this information is protected by the Federal Confidentiality of Alcohol and Drug Abuse Patient Records regulations: The Federal rules restrict any use of the information to criminally investigate or prosecute any alcohol or drug abuse patient.[facility] CenterIn the event this information is protected by the Federal Confidentiality of Alcohol and Drug Abuse Patient Records regulations: The Federal rules restrict any use of the information to criminally investigate or prosecute any alcohol or drug abuse patient.[facility] CenterIn the event this information is protected by the Federal Confidentiality of Alcohol and Drug Abuse Patient Records regulations: The Federal rules restrict any use of the information to criminally investigate or prosecute any alcohol or drug abuse patient.[facility] CenterIn the event this information is protected by the Federal Confidentiality of Alcohol and Drug Abuse Patient Records regulations: The Federal rules restrict any use of the information to criminally investigate or prosecute any alcohol or drug abuse patient.[facility] CenterIn the event this information is protected by the Federal Confidentiality of Alcohol and Drug Abuse Patient Records regulations: The Federal rules restrict any use of the information to criminally investigate or prosecute any alcohol or drug abuse patient.[facility] CenterIn the event this information is protected by the Federal Confidentiality of Alcohol and Drug Abuse Patient Records regulations: The Federal rules restrict any use of the information to criminally investigate or prosecute any alcohol or drug abuse patient.[facility] CenterIn the event this information is protected by the Federal Confidentiality of Alcohol and Drug Abuse Patient Records regulations: The Federal rules restrict any use of the information to criminally investigate or prosecute any alcohol or drug abuse patient.[facility] CenterIn the event this information is protected by the Federal Confidentiality of Alcohol and Drug Abuse Patient Records regulations: The Federal rules restrict any use of the information to criminally investigate or prosecute any alcohol or drug abuse patient.[facility] CenterIn the event this information is protected by the Federal Confidentiality of Alcohol and Drug Abuse Patient Records regulations: The Federal rules restrict any use of the information to criminally investigate or prosecute any alcohol or drug abuse patient.[facility] CenterIn the event this information is protected by the Federal Confidentiality of Alcohol and Drug Abuse Patient Records regulations: The Federal rules restrict any use of the information to criminally investigate or prosecute any alcohol or drug abuse patient.[facility] CenterIn the event this information is protected by the Federal Confidentiality of Alcohol and Drug Abuse Patient Records regulations: The Federal rules restrict any use of the information to criminally investigate or prosecute any alcohol or drug abuse patient.[facility] CenterIn the event this information is protected by the Federal Confidentiality of Alcohol and Drug Abuse Patient Records regulations: The Federal rules restrict any use of the information to criminally investigate or prosecute any alcohol or drug abuse patient.[facility] CenterIn the event this information is protected by the Federal Confidentiality of Alcohol and Drug Abuse Patient Records regulations: The Federal rules restrict any use of the information to criminally investigate or prosecute any alcohol or drug abuse patient.[facility] CenterIn the event this information is protected by the Federal Confidentiality of Alcohol and Drug Abuse Patient Records regulations: The Federal rules restrict any use of the information to criminally investigate or prosecute any alcohol or drug abuse patient.[facility] CenterIn the event this information is protected by the Federal Confidentiality of Alcohol and Drug Abuse Patient Records regulations: The Federal rules restrict any use of the information to criminally investigate or prosecute any alcohol or drug abuse patient.[facility] CenterIn the event this information is protected by the Federal Confidentiality of Alcohol and Drug Abuse Patient Records regulations: The Federal rules restrict any use of the information to criminally investigate or prosecute any alcohol or drug abuse patient.[facility] CenterIn the event this information is protected by the Federal Confidentiality of Alcohol and Drug Abuse Patient Records regulations: The Federal rules restrict any use of the information to criminally investigate or prosecute any alcohol or drug abuse patient.[facility] CenterIn the event this information is protected by the Federal Confidentiality of Alcohol and Drug Abuse Patient Records regulations: The Federal rules restrict any use of the information to criminally investigate or prosecute any alcohol or drug abuse patient.[facility] CenterIn the event this information is protected by the Federal Confidentiality of Alcohol and Drug Abuse Patient Records regulations: The Federal rules restrict any use of the information to criminally investigate or prosecute any alcohol or drug abuse patient.[facility] CenterIn the event this information is protected by the Federal Confidentiality of Alcohol and Drug Abuse Patient Records regulations: The Federal rules restrict any use of the information to criminally investigate or prosecute any alcohol or drug abuse patient.[facility] CenterIn the event this information is protected by the Federal Confidentiality of Alcohol and Drug Abuse Patient Records regulations: The Federal rules restrict any use of the information to criminally investigate or prosecute any alcohol or drug abuse patient.[facility] CenterIn the event this information is protected by the Federal Confidentiality of Alcohol and Drug Abuse Patient Records regulations: The Federal rules restrict any use of the information to criminally investigate or prosecute any alcohol or drug abuse patient.[facility] CenterIn the event this information is protected by the Federal Confidentiality of Alcohol and Drug Abuse Patient Records regulations: The Federal rules restrict any use of the information to criminally investigate or prosecute any alcohol or drug abuse patient.[facility] CenterIn the event this information is protected by the Federal Confidentiality of Alcohol and Drug Abuse Patient Records regulations: The Federal rules restrict any use of the information to criminally investigate or prosecute any alcohol or drug abuse patient.[facility] CenterIn the event this information is protected by the Federal Confidentiality of Alcohol and Drug Abuse Patient Records regulations: The Federal rules restrict any use of the information to criminally investigate or prosecute any alcohol or drug abuse patient.[facility] CenterIn the event this information is protected by the Federal Confidentiality of Alcohol and Drug Abuse Patient Records regulations: The Federal rules restrict any use of the information to criminally investigate or prosecute any alcohol or drug abuse patient.[facility] CenterIn the event this information is protected by the Federal Confidentiality of Alcohol and Drug Abuse Patient Records regulations: The Federal rules restrict any use of the information to criminally investigate or prosecute any alcohol or drug abuse patient.[facility] CenterIn the event this information is protected by the Federal Confidentiality of Alcohol and Drug Abuse Patient Records regulations: The Federal rules restrict any use of the information to criminally investigate or prosecute any alcohol or drug abuse patient.[facility] CenterIn the event this information is protected by the Federal Confidentiality of Alcohol and Drug Abuse Patient Records regulations: The Federal rules restrict any use of the information to criminally investigate or prosecute any alcohol or drug abuse patient.[facility] CenterIn the event this information is protected by the Federal Confidentiality of Alcohol and Drug Abuse Patient Records regulations: The Federal rules restrict any use of the information to criminally investigate or prosecute any alcohol or drug abuse patient.[facility] CenterIn the event this information is protected by the Federal Confidentiality of Alcohol and Drug Abuse Patient Records regulations: The Federal rules restrict any use of the information to criminally investigate or prosecute any alcohol or drug abuse patient.[facility] CenterIn the event this information is protected by the Federal Confidentiality of Alcohol and Drug Abuse Patient Records regulations: The Federal rules restrict any use of the information to criminally investigate or prosecute any alcohol or drug abuse patient.[facility] CenterIn the event this information is protected by the Federal Confidentiality of Alcohol and Drug Abuse Patient Records regulations: The Federal rules restrict any use of the information to criminally investigate or prosecute any alcohol or drug abuse patient.[facility] CenterIn the event this information is protected by the Federal Confidentiality of Alcohol and Drug Abuse Patient Records regulations: The Federal rules restrict any use of the information to criminally investigate or prosecute any alcohol or drug abuse patient.[facility] CenterIn the event this information is protected by the Federal Confidentiality of Alcohol and Drug Abuse Patient Records regulations: The Federal rules restrict any use of the information to criminally investigate or prosecute any alcohol or drug abuse patient.[facility] CenterIn the event this information is protected by the Federal Confidentiality of Alcohol and Drug Abuse Patient Records regulations: The Federal rules restrict any use of the information to criminally investigate or prosecute any alcohol or drug abuse patient.[facility] CenterIn the event this information is protected by the Federal Confidentiality of Alcohol and Drug Abuse Patient Records regulations: The Federal rules restrict any use of the information to criminally investigate or prosecute any alcohol or drug abuse patient.[facility] CenterIn the event this information is protected by the Federal Confidentiality of Alcohol and Drug Abuse Patient Records regulations: The Federal rules restrict any use of the information to criminally investigate or prosecute any alcohol or drug abuse patient.[facility] CenterIn the event this information is protected by the Federal Confidentiality of Alcohol and Drug Abuse Patient Records regulations: The Federal rules restrict any use of the information to criminally investigate or prosecute any alcohol or drug abuse patient.[facility] CenterIn the event this information is protected by the Federal Confidentiality of Alcohol and Drug Abuse Patient Records regulations: The Federal rules restrict any use of the information to criminally investigate or prosecute any alcohol or drug abuse patient.[facility] CenterIn the event this information is protected by the Federal Confidentiality of Alcohol and Drug Abuse Patient Records regulations: The Federal rules restrict any use of the information to criminally investigate or prosecute any alcohol or drug abuse patient.[facility] CenterIn the event this information is protected by the Federal Confidentiality of Alcohol and Drug Abuse Patient Records regulations: The Federal rules restrict any use of the information to criminally investigate or prosecute any alcohol or drug abuse patient.[facility] CenterIn the event this information is protected by the Federal Confidentiality of Alcohol and Drug Abuse Patient Records regulations: The Federal rules restrict any use of the information to criminally investigate or prosecute any alcohol or drug abuse patient.[facility] CenterIn the event this information is protected by the Federal Confidentiality of Alcohol and Drug Abuse Patient Records regulations: The Federal rules restrict any use of the information to criminally investigate or prosecute any alcohol or drug abuse patient.[facility] CenterIn the event this information is protected by the Federal Confidentiality of Alcohol and Drug Abuse Patient Records regulations: The Federal rules restrict any use of the information to criminally investigate or prosecute any alcohol or drug abuse patient.[facility] CenterIn the event this information is protected by the Federal Confidentiality of Alcohol and Drug Abuse Patient Records regulations: The Federal rules restrict any use of the information to criminally investigate or prosecute any alcohol or drug abuse patient.[facility] CenterIn the event this information is protected by the Federal Confidentiality of Alcohol and Drug Abuse Patient Records regulations: The Federal rules restrict any use of the information to criminally investigate or prosecute any alcohol or drug abuse patient.[facility] CenterIn the event this information is protected by the Federal Confidentiality of Alcohol and Drug Abuse Patient Records regulations: The Federal rules restrict any use of the information to criminally investigate or prosecute any alcohol or drug abuse patient.[facility] CenterIn the event this information is protected by the Federal Confidentiality of Alcohol and Drug Abuse Patient Records regulations: The Federal rules restrict any use of the information to criminally investigate or prosecute any alcohol or drug abuse patient.[facility] CenterIn the event this information is protected by the Federal Confidentiality of Alcohol and Drug Abuse Patient Records regulations: The Federal rules restrict any use of the information to criminally investigate or prosecute any alcohol or drug abuse patient.[facility] CenterIn the event this information is protected by the Federal Confidentiality of Alcohol and Drug Abuse Patient Records regulations: The Federal rules restrict any use of the information to criminally investigate or prosecute any alcohol or drug abuse patient.[facility] CenterIn the event this information is protected by the Federal Confidentiality of Alcohol and Drug Abuse Patient Records regulations: The Federal rules restrict any use of the information to criminally investigate or prosecute any alcohol or drug abuse patient.[facility] CenterIn the event this information is protected by the Federal Confidentiality of Alcohol and Drug Abuse Patient Records regulations: The Federal rules restrict any use of the information to criminally investigate or prosecute any alcohol or drug abuse patient.[facility] CenterIn the event this information is protected by the Federal Confidentiality of Alcohol and Drug Abuse Patient Records regulations: The Federal rules restrict any use of the information to criminally investigate or prosecute any alcohol or drug abuse patient.[facility] CenterIn the event this information is protected by the Federal Confidentiality of Alcohol and Drug Abuse Patient Records regulations: The Federal rules restrict any use of the information to criminally investigate or prosecute any alcohol or drug abuse patient.[facility] CenterIn the event this information is protected by the Federal Confidentiality of Alcohol and Drug Abuse Patient Records regulations: The Federal rules restrict any use of the information to criminally investigate or prosecute any alcohol or drug abuse patient.[facility] CenterIn the event this information is protected by the Federal Confidentiality of Alcohol and Drug Abuse Patient Records regulations: The Federal rules restrict any use of the information to criminally investigate or prosecute any alcohol or drug abuse patient.[facility] CenterIn the event this information is protected by the Federal Confidentiality of Alcohol and Drug Abuse Patient Records regulations: The Federal rules restrict any use of the information to criminally investigate or prosecute any alcohol or drug abuse patient.[facility] CenterIn the event this information is protected by the Federal Confidentiality of Alcohol and Drug Abuse Patient Records regulations: The Federal rules restrict any use of the information to criminally investigate or prosecute any alcohol or drug abuse patient.[facility] CenterIn the event this information is protected by the Federal Confidentiality of Alcohol and Drug Abuse Patient Records regulations: The Federal rules restrict any use of the information to criminally investigate or prosecute any alcohol or drug abuse patient.[facility] CenterIn the event this information is protected by the Federal Confidentiality of Alcohol and Drug Abuse Patient Records regulations: The Federal rules restrict any use of the information to criminally investigate or prosecute any alcohol or drug abuse patient.[facility] CenterIn the event this information is protected by the Federal Confidentiality of Alcohol and Drug Abuse Patient Records regulations: The Federal rules restrict any use of the information to criminally investigate or prosecute any alcohol or drug abuse patient.[facility] CenterIn the event this information is protected by the Federal Confidentiality of Alcohol and Drug Abuse Patient Records regulations: The Federal rules restrict any use of the information to criminally investigate or prosecute any alcohol or drug abuse patient.[facility] CenterIn the event this information is protected by the Federal Confidentiality of Alcohol and Drug Abuse Patient Records regulations: The Federal rules restrict any use of the information to criminally investigate or prosecute any alcohol or drug abuse patient.[facility] CenterIn the event this information is protected by the Federal Confidentiality of Alcohol and Drug Abuse Patient Records regulations: The Federal rules restrict any use of the information to criminally investigate or prosecute any alcohol or drug abuse patient.[facility] CenterIn the event this information is protected by the Federal Confidentiality of Alcohol and Drug Abuse Patient Records regulations: The Federal rules restrict any use of the information to criminally investigate or prosecute any alcohol or drug abuse patient.[facility] CenterIn the event this information is protected by the Federal Confidentiality of Alcohol and Drug Abuse Patient Records regulations: The Federal rules restrict any use of the information to criminally investigate or prosecute any alcohol or drug abuse patient.[facility] CenterIn the event this information is protected by the Federal Confidentiality of Alcohol and Drug Abuse Patient Records regulations: The Federal rules restrict any use of the information to criminally investigate or prosecute any alcohol or drug abuse patient.[facility] CenterIn the event this information is protected by the Federal Confidentiality of Alcohol and Drug Abuse Patient Records regulations: The Federal rules restrict any use of the information to criminally investigate or prosecute any alcohol or drug abuse patient.[facility] CenterIn the event this information is protected by the Federal Confidentiality of Alcohol and Drug Abuse Patient Records regulations: The Federal rules restrict any use of the information to criminally investigate or prosecute any alcohol or drug abuse patient.[facility] CenterIn the event this information is protected by the Federal Confidentiality of Alcohol and Drug Abuse Patient Records regulations: The Federal rules restrict any use of the information to criminally investigate or prosecute any alcohol or drug abuse patient.[facility] CenterIn the event this information is protected by the Federal Confidentiality of Alcohol and Drug Abuse Patient Records regulations: The Federal rules restrict any use of the information to criminally investigate or prosecute any alcohol or drug abuse patient.[facility] CenterIn the event this information is protected by the Federal Confidentiality of Alcohol and Drug Abuse Patient Records regulations: The Federal rules restrict any use of the information to criminally investigate or prosecute any alcohol or drug abuse patient.[facility] CenterIn the event this information is protected by the Federal Confidentiality of Alcohol and Drug Abuse Patient Records regulations: The Federal rules restrict any use of the information to criminally investigate or prosecute any alcohol or drug abuse patient.[facility] CenterIn the event this information is protected by the Federal Confidentiality of Alcohol and Drug Abuse Patient Records regulations: The Federal rules restrict any use of the information to criminally investigate or prosecute any alcohol or drug abuse patient.[facility]In the event this information is protected by the Federal Confidentiality of Alcohol and Drug Abuse Patient Records regulations: The Federal rules restrict any use of the information to criminally investigate or prosecute any alcohol or drug abuse patient.[facility] CenterIn the event this information is protected by the Federal Confidentiality of Alcohol and Drug Abuse Patient Records regulations: The Federal rules restrict any use of the information to criminally investigate or prosecute any alcohol or drug abuse patient.[facility]In the event this information is protected by the Federal Confidentiality of Alcohol and Drug Abuse Patient Records regulations: The Federal rules restrict any use of the information to criminally investigate or prosecute any alcohol or drug abuse patient.[facility] CenterIn the event this information is protected by the Federal Confidentiality of Alcohol and Drug Abuse Patient Records regulations: The Federal rules restrict any use of the information to criminally investigate or prosecute any alcohol or drug abuse patient.[facility] CenterIn the event this information is protected by the Federal Confidentiality of Alcohol and Drug Abuse Patient Records regulations: The Federal rules restrict any use of the information to criminally investigate or prosecute any alcohol or drug abuse patient.[facility] CenterIn the event this information is protected by the Federal Confidentiality of Alcohol and Drug Abuse Patient Records regulations: The Federal rules restrict any use of the information to criminally investigate or prosecute any alcohol or drug abuse patient.[facility] CenterIn the event this information is protected by the Federal Confidentiality of Alcohol and Drug Abuse Patient Records regulations: The Federal rules restrict any use of the information to criminally investigate or prosecute any alcohol or drug abuse patient.[facility] CenterIn the event this information is protected by the Federal Confidentiality of Alcohol and Drug Abuse Patient Records regulations: The Federal rules restrict any use of the information to criminally investigate or prosecute any alcohol or drug abuse patient.[facility] CenterIn the event this information is protected by the Federal Confidentiality of Alcohol and Drug Abuse Patient Records regulations: The Federal rules restrict any use of the information to criminally investigate or prosecute any alcohol or drug abuse patient.[facility] CenterIn the event this information is protected by the Federal Confidentiality of Alcohol and Drug Abuse Patient Records regulations: The Federal rules restrict any use of the information to criminally investigate or prosecute any alcohol or drug abuse patient.[facility] CenterIn the event this information is protected by the Federal Confidentiality of Alcohol and Drug Abuse Patient Records regulations: The Federal rules restrict any use of the information to criminally investigate or prosecute any alcohol or drug abuse patient.[facility] CenterIn the event this information is protected by the Federal Confidentiality of Alcohol and Drug Abuse Patient Records regulations: The Federal rules restrict any use of the information to criminally investigate or prosecute any alcohol or drug abuse patient.[facility] CenterIn the event this information is protected by the Federal Confidentiality of Alcohol and Drug Abuse Patient Records regulations: The Federal rules restrict any use of the information to criminally investigate or prosecute any alcohol or drug abuse patient.[facility] CenterIn the event this information is protected by the Federal Confidentiality of Alcohol and Drug Abuse Patient Records regulations: The Federal rules restrict any use of the information to criminally investigate or prosecute any alcohol or drug abuse patient.[facility]In the event this information is protected by the Federal Confidentiality of Alcohol and Drug Abuse Patient Records regulations: The Federal rules restrict any use of the information to criminally investigate or prosecute any alcohol or drug abuse patient.[facility]In the event this information is protected by the Federal Confidentiality of Alcohol and Drug Abuse Patient Records regulations: The Federal rules restrict any use of the information to criminally investigate or prosecute any alcohol or drug abuse patient.[facility]In the event this information is protected by the Federal Confidentiality of Alcohol and Drug Abuse Patient Records regulations: The Federal rules restrict any use of the information to criminally investigate or prosecute any alcohol or drug abuse patient.[facility]In the event this information is protected by the Federal Confidentiality of Alcohol and Drug Abuse Patient Records regulations: The Federal rules restrict any use of the information to criminally investigate or prosecute any alcohol or drug abuse patient.[facility] CenterIn the event this information is protected by the Federal Confidentiality of Alcohol and Drug Abuse Patient Records regulations: The Federal rules restrict any use of the information to criminally investigate or prosecute any alcohol or drug abuse patient.[facility]In the event this information is protected by the Federal Confidentiality of Alcohol and Drug Abuse Patient Records regulations: The Federal rules restrict any use of the information to criminally investigate or prosecute any alcohol or drug abuse patient.[facility] CenterIn the event this information is protected by the Federal Confidentiality of Alcohol and Drug Abuse Patient Records regulations: The Federal rules restrict any use of the information to criminally investigate or prosecute any alcohol or drug abuse patient.[facility] CenterIn the event this information is protected by the Federal Confidentiality of Alcohol and Drug Abuse Patient Records regulations: The Federal rules restrict any use of the information to criminally investigate or prosecute any alcohol or drug abuse patient.[facility] CenterIn the event this information is protected by the Federal Confidentiality of Alcohol and Drug Abuse Patient Records regulations: The Federal rules restrict any use of the information to criminally investigate or prosecute any alcohol or drug abuse patient.[facility] CenterIn the event this information is protected by the Federal Confidentiality of Alcohol and Drug Abuse Patient Records regulations: The Federal rules restrict any use of the information to criminally investigate or prosecute any alcohol or drug abuse patient.[facility]In the event this information is protected by the Federal Confidentiality of Alcohol and Drug Abuse Patient Records regulations: The Federal rules restrict any use of the information to criminally investigate or prosecute any alcohol or drug abuse patient.[facility] CenterIn the event this information is protected by the Federal Confidentiality of Alcohol and Drug Abuse Patient Records regulations: The Federal rules restrict any use of the information to criminally investigate or prosecute any alcohol or drug abuse patient.[facility] CenterIn the event this information is protected by the Federal Confidentiality of Alcohol and Drug Abuse Patient Records regulations: The Federal rules restrict any use of the information to criminally investigate or prosecute any alcohol or drug abuse patient.[facility] Reason for Visit (unrecogniz ed [...] NEW HIGH MDM 60-74 MINUTES Older, Caryn, ADMINISTRATOR [facility] [facility] [id number] [place] [address] Referral ID Status Reason Start Date Expiration Date V isits Requested Visits Authorized [id number] Closed PCP Requested Referral 04/08/2022 04/08/2023 1 [...] THERAPY MEDICAL NUTRITION ASSMT&IVNTJ INDIV EACH 15 [place] MEDICAL NUTRITION ASSMT&IVNTJ INDIV EACH 15 [place] MEDICAL NUTRITION ASSMT&IVNTJ INDIV EACH 15 [place] MEDICAL NUTRITION [id number]&IVNTJ INDIV EACH 15 [place] Caryn Lowery APRN.PRESALES CONSULTANT [address] [id number] Referral ID Status Reason Start Date Expiration Date V isits Requested Visits Authorized [id number] Closed PCP Requested Referral 11/23/2022 11/23/2023 1 1 Reason Comments Recheck Adipex follow up Reason Comments Recheck 2 month follow up Reason Comments Radiology US Specialty Diagnoses / Procedures Referred By Contac t Referred To Contact US IMAGING Diagnoses RUQ pain Nausea Epigastric pain Diarrhea, unspecified type Procedures US ABD RT UPPER QUADRANT US ABDOMINAL REAL TIME W/IMAGE LIMITED Caryn Lowery APRN.PRESALES CONSULTANT [address] [id number] [place] [address] Referral ID Status Reason Start Date Expiration Date V isits Requested Visits Authorized [id number] Closed Auto-Generate d Referral 03/25/2022 04/24/2023 1 [...] congestion, SO B Reason Comments Faxed to [facility] Pulmonary Reason Comments Lab Orders Reason Comments Results Reason Comments Radiology CT Specialty Diagnoses / Procedures Referred By Sophia douglass Referred To Contact CT IMAGING Diagnoses Shortness of breath Cough, unspecified type Wheezing Low O2 saturation Subacute cough Procedures CT CHEST W IVCON DIAGNOSTIC COMPUTED TOMOGRAPHY THORAX W/CONTRAST Older, Caryn, ADMINIST[facility]ATOR [facility].PRESALES CONSULTANT [address] [facility] [place] [address] [address] [place] [address] Referral ID Status Reason Start Date Expiration Date V isits Requested Visits Authorized [id number] Closed Auto-Generate d Referral 02/18/2024 03/19/2024 1 [...] GAS DETERMINATION Elle Boone MD [address] [facility] [place] [address] [address] Referral ID Status Reason Start Date Expiration Date V isits Requested Visits Authorized [id number] Closed Auto-Generate d Referral 05/23/2024 06/22/2025 1 1 Specialty Diagnoses / Procedures Referred By Contac t Referred To Contact [facility] Diagnoses Cough, unspecified type Procedures SPIROMETRY WITH DILATOR IF OBSTRUCTED BRNCDILAT RSPSE SPMTRY PRE&POST-BRNCDILAT ADMN Elle Boone MD [address] [place] [address] [address] Referral ID Status Reason Start Date Expiration Date V isits Requested Visits Authorized [id number] Closed Auto-Generate d Referral 05/23/2024 06/22/2025 1 [...] Care Teams (unrecognized sec tion and content) Tax Record Clerk Relationship Specialty Start Date End Date Babar Phillip MD [address] [place] [address] PCP - General Internal Medicine 12/17/16 Deanne Patterson MD 1945 [facility] [address] [place] [address] Pulmonary Disease 02/07/21 Tax Record Clerk Relationship Specialty Start Date End Date Babar Phillip MD [address] [place] [address] PCP - General Internal Medicine 12/17/16 Deanne Patterson MD 1945 [facility] [address] [place] [address] Pulmonary Disease 02/07/21 Tax Record Clerk Relationship Specialty Start Date End Date Babar Phillip MD [address] [place] [address] PCP - General Internal Medicine 12/17/16 Deanne Patterson MD 1945 [facility] [address] [place] [address] Pulmonary Disease 02/07/21 Tax Record Clerk Relationship Specialty Start Date End Date Babar Phillip MD [address] [place] [address] PCP - General Internal Medicine 12/17/16 Deanne Patterson MD [address] [place] [address] [address] [place] [address] Pulmonary Disease 02/07/21 Tax Record Clerk Relationship Specialty Start Date End Date Babar Phillip MD [address] [place] [address] PCP - General Internal Medicine 12/17/16 Deanne Patterson MD 1945 [facility] [address] [place] [address] Pulmonary Disease 02/07/21 Tax Record Clerk Relationship Specialty Start Date End Date Babar Phillip MD [address] [place] [address] PCP - General Internal Medicine 12/17/16 Deanne Patterson MD 1945 [facility] [address] [place] [address] Pulmonary Disease 02/07/21 Tax Record Clerk Relationship Specialty Start Date End Date Babar Phillip MD [address] [facility] [address] PCP - General Internal Medicine 12/17/16 Deanne Patterson MD 1945 [facility] [address] [place] [address] Pulmonary Disease 02/07/21 Tax Record Clerk Relationship Specialty Start Date End Date Babar Phillip MD [address] [place] [address] PCP - General Internal Medicine 12/17/16 Deanne Patterson MD 1945 [facility] [address] [place] [address] Pulmonary Disease 02/07/21 Tax Record Clerk Relationship Specialty Start Date End Date Babar Phillip MD [address] [place] [address] PCP - General Internal Medicine 12/17/16 Deanne Patterson MD 1945 [facility] [address] [place] [address] Pulmonary Disease 02/07/21 Tax Record Clerk Relationship Specialty Start Date End Date Babar Phillip MD [address] [place] [address] PCP - General Internal Medicine 12/17/16 Deanne Patterson MD 1945 [facility] [address] [place] [address] Pulmonary Disease 02/07/21 Tax Record Clerk Relationship Specialty Start Date End Date Babar Phillip MD [address] [place] [address] PCP - General Internal Medicine 12/17/16 Deanne Patterson MD 1946 [facility] [address] [place] [address] Pulmonary Disease 02/07/21 Tax Record Clerk Relationship Specialty Start Date End Date Babar Phillip MD [address] [place] [address] PCP - General Internal Medicine 12/17/16 Deanne Patterson MD [address] [facility] [address] [place] [address] Pulmonary Disease 02/07/21 Tax Record Clerk Relationship Specialty Start Date End Date Babar Phillip MD [address] [place] [address] PCP - General Internal Medicine 12/17/16 Deanne Patterson MD 1946 [facility] [address] [place] [address] Pulmonary Disease 02/07/21 Tax Record Clerk Relationship Specialty Start Date End Date Babar Phillip MD [address] [place] [address] PCP - General Internal Medicine 12/17/16 Deanne Patterson MD [address] [facility] [address] [place] [address] Pulmonary Disease 02/07/21 Tax Record Clerk Relationship Specialty Start Date End Date Babar Phillip MD [address] [place] [address] PCP - General Internal Medicine 12/17/16 Deanne Patterson MD 1945 [facility] [address] [place] [address] Pulmonary Disease 02/07/21 Tax Record Clerk Relationship Specialty Start Date End Date Babar Phillip MD [address] [place] [address] PCP - General Internal Medicine 12/17/16 Deanne Patterson MD [address] [facility] [address] [place] [address] Pulmonary Disease 02/07/21 Tax Record Clerk Relationship Specialty Start Date End Date Babar Phillip MD [address] [place] [address] PCP - General Internal Medicine 12/17/16 Deanne Patterson MD 1945 [facility] [address] [place] [address] Pulmonary Disease 02/07/21 Tax Record Clerk Relationship Specialty Start Date End Date Babar Phillip MD [address] [place] [address] PCP - General Internal Medicine 12/17/16 Deanne Patterson MD 1945 [facility] [address] [place] [address] Pulmonary Disease 02/07/21 Tax Record Clerk Relationship Specialty Start Date End Date Babar Phillip MD [address] [place] [address] PCP - General Internal Medicine 12/17/16 Deanne Patterson MD [address] [facility] [address] [place] [address] Pulmonary Disease 02/07/21 Team Status: Active Member Role Status Dates Dr. Babar Phillip MD Family Provider Active Dr. Babar Phillip MD Primary Care Provider Active Team Status: Inactive Member Role Status Dates Dr. Babar Phillip MD Primary Care Provider, Referring Provider Active Coco Regalado CONTINUOUS IMPROVEMENT COACH, CONTINUOUS IMPROVEMENT COACH-C Attending Provider Active Team Status: Inactive Member Role Status Dates Dr. Babar Phillip MD Primary Care Provider Active Dr. Steve Tirado MD Attending Provider, Referring Provider Active Tax Record Clerk Relationship Specialty Start Date End Date Babar Phillip MD [address] [place] [address] PCP - General Internal Medicine 12/17/16 Deanne Patterson MD [address] [facility] [address] [place] [address] Pulmonary Disease 02/07/21 Tax Record Clerk Relationship Specialty Start Date End Date Babar Phillip MD [address] [place] [address] PCP - General Internal Medicine 12/17/16 Deanne Patterson MD 1946 [facility] [address] [place] [address] Pulmonary Disease 02/07/21 Tax Record Clerk Relationship Specialty Start Date End Date Babar Phillip MD [address] [place] [address] PCP - General Internal Medicine 12/17/16 Deanne Patterson MD 1946 [facility] [address] [place] [address] Pulmonary Disease 02/07/21 Tax Record Clerk Relationship Specialty Start Date End Date Babar Phillip MD [address] [place] [address] PCP - General Internal Medicine 12/17/16 Deanne Patterson MD 1945 [facility] [address] [place] [address] Pulmonary Disease 02/07/21 Tax Record Clerk Relationship Specialty Start Date End Date Babar Phillip MD [address] [place], [place] 2743[address] PCP - General Internal Medicine 12/17/16 Deanne Patterson MD 1945 [facility] [address] [place] [address] Pulmonary Disease 02/07/21 Tax Record Clerk Relationship Specialty Start Date End Date Babar Phillip MD [address] [place], [place] 799831 PCP - General Internal Medicine 12/17/16 Deanne Patterson MD 1945 [facility] [address] [place], [place] 575025 Pulmonary Disease 02/07/21 Tax Record Clerk Relationship Specialty Start Date End Date Babar Phillip MD [address] [place], [place] 483301 PCP - General Internal Medicine 12/17/16 Deanne Patterson MD 1945 [facility] [address] [place] [address] Pulmonary Disease 02/07/21 Tax Record Clerk Relationship Specialty Start Date End Date Babar Phillip MD [address] [place], [place] 671581 PCP - General Internal Medicine 12/17/16 Deanne Patterson MD 1945 [facility] [address] [place] [address] Pulmonary Disease 02/07/21 Tax Record Clerk Relationship Specialty Start Date End Date Babar Phillip MD [address] [place] [address] PCP - General Internal Medicine 12/17/16 Deanne Patterson MD 1945 [facility] [address] [place] [address] Pulmonary Disease 02/07/21 Tax Record Clerk Relationship Specialty Start Date End Date Babar Phillip MD [address] [place] [address] PCP - General Internal Medicine 12/17/16 Deanne Patterson MD 1945 [facility] [address] [place] [address] Pulmonary Disease 02/07/21 Tax Record Clerk Relationship Specialty Start Date End Date Babar Phillip MD [address] [place] [address] PCP - General Internal Medicine 12/17/16 Deanne Patterson MD 1945 [facility] [address] [place] [address] Pulmonary Disease 02/07/21 Team Status: Inactive Member Role Status Dates Dr. Babar Phillip MD Primary Care Provider, Referring Provider Active Dr. Kamron Cobb MD Attending Provider Active Team Status: Inactive Member Role Status Dates Dr. Babar Phillip MD Primary Care Provider, Referring Provider Active Dr. Akin Gary , DO Attending Provider Active Tax Record Clerk Relationship Specialty Start Date End Date Babar Phillip MD [address] [place] [address] PCP - General Internal Medicine 12/17/16 Deanne Patterson MD 6 [facility] [address] [place] [address] Pulmonary Disease 02/07/21 Tax Record Clerk Relationship Specialty Start Date End Date Babar Phillip MD [address] [place] [address] PCP - General Internal Medicine 12/17/16 Deanne Patterson MD 1945 [facility] [address] [place] [address] Pulmonary Disease 02/07/21 Tax Record Clerk Relationship Specialty Start Date End Date Babar Phillip MD [address] [place], [place] 311771 PCP - General Internal Medicine 12/17/16 Deanne Patterson MD 1945 [facility] [address] [place], [place] 775155 Pulmonary Disease 02/07/21 Tax Record Clerk Relationship Specialty Start Date End Date Babar Phillip MD [address] [place] [address] PCP - General Internal Medicine 12/17/16 Deanne Patterson MD 1945 [facility] [address] [place] [address] Pulmonary Disease 02/07/21 Team Status: Inactive Member Role Status Dates Dr. Babar Phillip MD Primary Care Provider Active Dr. Kamron Cobb MD Attending Provider, Referring Pr ovider Active Tax Record Clerk Relationship Specialty Start Date End Date Babar Phillip MD [address] [place], [place] 496121 PCP - General Internal Medicine 12/17/16 Deanne Patterson MD 1945 [facility] [address] [place] [address] Pulmonary Disease 02/07/21 Tax Record Clerk Relationship Specialty Start Date End Date Babar Phillip MD [address] [place] [address] PCP - General Internal Medicine 12/17/16 Deanne Patterson MD [address] [place] [address] [address] [place] [address] Pulmonary Disease 02/07/21 Tax Record Clerk Relationship Specialty Start Date End Date Babar Phillip MD [address] [place], [place] 328111 PCP - General Internal Medicine 12/17/16 Deanne Patterson MD [address] [place] [address] [address] [place], [place] [address]235 Pulmonary Disease 02/07/21 Tax Record Clerk Relationship Specialty Start Date End Date Babar Phillip MD [address] [place], [place] 883541 PCP - General Internal Medicine 12/17/16 Deanne Patterson MD [address] [place] [address] [address] [place], [place] 8[address]415 Pulmonary Disease 02/07/21 Tax Record Clerk Relationship Specialty Start Date End Date Babar Phillip MD [address] [place], [place] 157421 PCP - General Internal Medicine 12/17/16 Deanne Patterson MD 1945 [facility] [address] [place], [place] 122915 Pulmonary Disease 02/07/21 Tax Record Clerk Relationship Specialty Start Date End Date Babar Phillip MD [address] [place], [place] 103721 PCP - General Internal Medicine 12/17/16 Deanne Patterson MD 1945 [facility] [address] [place], [place] [address] Pulmonary Disease 02/07/21 Tax Record Clerk Relationship Specialty Start Date End Date Babar Phillip MD [address] [place], [place] 990581 PCP - General Internal Medicine 12/17/16 Deanne Patterson MD 1945 [facility] [address] [place], [place] 580095 Pulmonary Disease 02/07/21 Tax Record Clerk Relationship Specialty Start Date End Date Babar Phillip MD [address] [place], [place] 106871 PCP - General Internal Medicine 12/17/16 Deanne Patterson MD 1945 [facility] [address] [place] [address] Pulmonary Disease 02/07/21 Tax Record Clerk Relationship Specialty Start Date End Date Babar Phillip MD [address] [place], [place] 101501 PCP - General Internal Medicine 12/17/16 Deanne Patterson MD 1945 [facility] [address] [place] [address] Pulmonary Disease 02/07/21 Tax Record Clerk Relationship Specialty Start Date End Date Babar Phillip MD [address] [place], [place] 799851 PCP - General Internal Medicine 12/17/16 Deanne Patterson MD [address] [address] Pulmonary Disease 02/07/21 Tax Record Clerk Relationship Specialty Start Date End Date Babar Phillip MD [address] [place], [place] 775761 PCP - General Internal Medicine 12/17/16 Deanne Patterson MD 1945 [facility] [address] [place], [place] 968445 Pulmonary Disease 02/07/21 Tax Record Clerk Relationship Specialty Start Date End Date Babar Phillip MD [address] [place], [place] 212941 PCP - General Internal Medicine 12/17/16 Deanne Patterson MD 1945 [facility] [address] [place] [address] Pulmonary Disease 02/07/21 Tax Record Clerk Relationship Specialty Start Date End Date Babar Phillip MD [address] [place] [address] PCP - General Internal Medicine 12/17/16 Deanne Patterson MD [facility] [address] [place] [address] Pulmonary Disease 02/07/21 Tax Record Clerk Relationship Specialty Start Date End Date Babar Phillip MD [address] [place] [address] PCP - General Internal Medicine 12/17/16 Deanne Patterson MD [address] [place] [address] [address] [place] [address] Pulmonary Disease 02/07/21 Tax Record Clerk Relationship Specialty Start Date End Date Babar Phillip MD [address] [place] [address] PCP - General Internal Medicine 12/17/16 Deanne Patterson MD [address] [place] [address] [address] [place], [place] 597035 Pulmonary Disease 02/07/21 Tax Record Clerk Relationship Specialty Start Date End Date Babar Phillip MD [address] [place] [address] PCP - General Internal Medicine 12/17/16 Deanne Patterson MD 1945 [facility] [address] [place] [address] Pulmonary Disease 02/07/21 Tax Record Clerk Relationship Specialty Start Date End Date Babar Phillip MD [address] [place] [address] PCP - General Internal Medicine 12/17/16 Deanne Patterson MD 1945 [facility] [address] [place] [address] Pulmonary Disease 02/07/21 Tax Record Clerk Relationship Specialty Start Date End Date Babar Phillip MD [address] [place] [address] PCP - General Internal Medicine 12/17/16 Deanne Patterson MD [address] [place] [address] [address] [place] [address] Pulmonary Disease 02/07/21 Tax Record Clerk Relationship Specialty Start Date End Date Babar Phillip MD [address] [place], [place] 655481 PCP - General Internal Medicine 12/17/16 Deanne Patterson MD 1945 [facility] [address] [place], [place] 127585 Pulmonary Disease 02/07/21 Tax Record Clerk Relationship Specialty Start Date End Date Babar Phillip MD [address] [place] [address] PCP - General Internal Medicine 12/17/16 Deanne Patterson MD 1945 [facility] [address] [place] [address] Pulmonary Disease 02/07/21 Tax Record Clerk Relationship Specialty Start Date End Date Babar Phillip MD [address] [place] [address] PCP - General Internal Medicine 12/17/16 Deanne Patterson MD [address] [place] [address] [address] [place] [address] Pulmonary Disease 02/07/21 Tax Record Clerk Relationship Specialty Start Date End Date Babar Phillip MD [address] [place] [address] PCP - General Internal Medicine 12/17/16 Deanne Patterson MD [address] [place] [address] [address] [place] [address] Pulmonary Disease 02/07/21 Tax Record Clerk Relationship Specialty Start Date End Date Babar Phillip MD [address] [place] [address] PCP - General Internal Medicine 12/17/16 Deanne Patterson MD [address] [place] [address] Pulmonary Disease 02/07/21 Tax Record Clerk Relationship Specialty Start Date End Date Babar Phillip MD [address] [place] [address] PCP - General Internal Medicine 12/17/16 Deanne Patterson MD [facility] [address] [place] [address] Pulmonary Disease 02/07/21 Tax Record Clerk Relationship Specialty Start Date End Date Babar Phillip MD [address] [place], [place] 195451 PCP - General Internal Medicine 12/17/16 Deanne Patterosn MD 1945 [facility] [address] [place], [place] 311845 Pulmonary Disease 02/07/21 Tax Record Clerk Relationship Specialty Start Date End Date Babar Phillip MD [address] [place], [place] 051131 PCP - General Internal Medicine 12/17/16 Deanne Patterson MD 1945 [facility] [address] [place], [place] 246695 Pulmonary Disease 02/07/21 Tax Record Clerk Relationship Specialty Start Date End Date Babar Phillip MD [address] [place], [place] 627941 PCP - General Internal Medicine 12/17/16 Deanne Patterson MD 1945 [facility] [address] [place], [place] [address]755 Pulmonary Disease 02/07/21 Tax Record Clerk Relationship Specialty Start Date End Date Babar Phillip MD [address] [place], [place] 786541 PCP - General Internal Medicine 12/17/16 Deanne Patterson MD 1945 [facility] [address] [place], [place] 725185 Pulmonary Disease 02/07/21 Tax Record Clerk Relationship Specialty Start Date End Date Babar Phillip MD [address] [place], [place] 617531 PCP - General Internal Medicine 12/17/16 Deanne Patterson MD 1945 [facility] [address] [place], [place] 357555 Pulmonary Disease 02/07/21 Tax Record Clerk Relationship Specialty Start Date End Date Babar Phillip MD [address] [place], [place] 476031 PCP - General Internal Medicine 12/17/16 Deanne Patterson MD 1945 [facility] [address] [place], [place] 176045 Pulmonary Disease 02/07/21 Tax Record Clerk Relationship Specialty Start Date End Date Babar Phillip MD [address] [place], [place] 647581 PCP - General Internal Medicine 12/17/16 Deanne Patterson MD 1945 [facility] [address] [place], [place] 346785 Pulmonary Disease 02/07/21 Tax Record Clerk Relationship Specialty Start Date End Date Babar Phillip MD [address] [place], [place] 840461 PCP - General Internal Medicine 12/17/16 Deanne Patterson MD 1945 [facility] [address] [place] [address] Pulmonary Disease 02/07/21 Tax Record Clerk Relationship Specialty Start Date End Date Babar Phillip MD [address] [place] [address] PCP - General Internal Medicine 12/17/16 Deanne Patterson MD 1945 [facility] [address] [place] [address] Pulmonary Disease 02/07/21 Tax Record Clerk Relationship Specialty Start Date End Date Babar Phillip MD [address] [place], [place] 126301 PCP - General Internal Medicine 12/17/16 Tax Record Clerk Relationship Specialty Start Date End Date Babar Phillip MD [address] [place], [place] 252821 PCP - General Internal Medicine 12/17/16 Tax Record Clerk Relationship Specialty Start Date End Date Babar Phillip MD [address] [place], [place] 484811 PCP - General Internal Medicine 12/17/16 Deanne Patterson MD 1945 [facility] [address] [place], [place] [address]2595 Pulmonary Disease 02/07/21 Tax Record Clerk Relationship Specialty Start Date End Date Babar Phillip MD [address] [place], [place] 179501 PCP - General Internal Medicine 12/17/16 Deanne Patterson MD 1945 [facility] [address] [place], [place] 813605 Pulmonary Disease 02/07/21 Tax Record Clerk Relationship Specialty Start Date End Date Babar Phillip MD [address] [place], [place] 431361 PCP - General Internal Medicine 12/17/16 Deanne Patterson MD 1945 [facility] [address] [place] [address] Pulmonary Disease 02/07/21 Tax Record Clerk Relationship Specialty Start Date End Date Babar Phillip MD [address] [place] [address] PCP - General Internal Medicine 12/17/16 Deanne Patterson MD 1945 [facility] [address] [place], [place] 164545 Pulmonary Disease 02/07/21 Tax Record Clerk Relationship Specialty Start Date End Date Babar Phillip MD [address] [place], [place] 818901 PCP - General Internal Medicine 12/17/16 Deanne Patterson MD 1945 [facility] [address] [place], [place] [address] Pulmonary Disease 02/07/21 Tax Record Clerk Relationship Specialty Start Date End Date Babar Phillip MD [address] [place] [address] PCP - General Internal Medicine 12/17/16 Deanne Patterson MD 1945 [facility] [address] [place] [address] Pulmonary Disease 02/07/21 Lani Mendez, JOVAN [address] [place] [address] Pest Control Service Sales Agent Family Medicine 04/23/24 Caryn Lowery APRN.PRESALES CONSULTANT [address] [place] [address] Pest Control Service Sales Agent Internal Medicine 04/23/24 Zeinab Garcia PA-C [address] [place] [address] Pest Control Service Sales Agent Family Medicine 04/23/24 Tax Record Clerk Relationship Specialty Start Date End Date Babar Phillip MD [address] [place] [address] PCP - General Internal Medicine 12/17/16 Deanne Patterson MD 1945 [facility] [address] [place], [place] 2070[address]85 Pulmonary Disease 02/07/21 Lani Mendez PA-C [address] [place] [address] Pest Control Service Sales Agent Family Medicine 04/23/24 Caryn Lowery APRN.PRESALES CONSULTANT [address] [place] [address] Pest Control Service Sales Agent Internal Medicine 04/23/24 Zeinab Garcia PA-C [address] [place] [address] Pest Control Service Sales Agent Family Medicine 04/23/24 Tax Record Clerk Relationship Specialty Start Date End Date Babar Phillip MD [address] [place], [place] 278951 PCP - General Internal Medicine 12/17/16 Deanne Patterson MD 1945 [facility] [address] [place], [place] 164[address] Pulmonary Disease 02/07/21 Lani Mendez PA-C [address] [place], [place] 2669241 [phone] Pest Control Service Sales Agent Family Medicine 04/23/24 Caryn Lowery APRN.[employer]ES CONSULTANT [address] [place] [address] Pest Control Service Sales Agent Internal Medicine 04/23/24 Zeinab Garcia PA-C [address] [place] [address] [facility] 04/23/24 Tax Record Clerk Relationship Specialty Start Date End Date Babar Phillip MD [address] [place] [address] PCP - General Internal Medicine 12/17/16 Deanne Patterson MD [address] [facility] [address] [place] [address] Pulmonary Disease 02/07/21 Lani Mendez PA-C [address] [place] [address] Pest Control Service Sales Agent Family Medicine 04/23/24 Caryn Lowery APRN.PRESALES CONSULTANT [address] [place] [address] Pest Control Service Sales Agent Internal Medicine 04/23/24 Zeinab Garcia PA-C [address] [place] [address] [facility] Family Medicine 04/23/24 Tax Record Clerk Relationship Specialty Start Date End Date Babar Phillip MD [address] [place], [place] [address]481 PCP - General Internal Medicine 12/17/16 Deanne Patterson MD [address] [facility] [address] [place] [address] Pulmonary Disease 02/07/21 Lani Mendez PA-C [address] [place], [place] [id number] [phone] Pest Control Service Sales Agent Family Medicine 04/23/24 Caryn Lowery APRN.PRESALES CONSULTANT [address] [place] [address] Pest Control Service Sales Agent Internal Medicine 04/23/24 Zeinab Garcia PA-C [address] [place] [address] Pest Control Service Sales Agent Family Medicine 04/23/24 Tax Record Clerk Relationship Specialty Start Date End Date Babar Phillip MD [address] [place] [address] PCP - General Internal Medicine 12/17/16 Deanne Patterson MD 1945 [facility] [address] [place] [address] Pulmonary Disease 02/07/21 Lani Mendez PA-C [address] [place], [place] [phone] Pest Control Service Sales Agent Family Medicine 04/23/24 Caryn Lowery APRN.PRESALES CONSULTANT [address] [place] [address] Pest Control Service Sales Agent Internal Medicine 04/23/24 Zeinab Garcia PA-C [address] [place] [address] Pest Control Service Sales Agent Family [facility] 04/23/24 Tax Record Clerk Relationship Specialty Start Date End Date Babar Phillip MD [address] [place] [address] PCP - General Internal Medicine 12/17/16 Deanne Patterson MD [address] [facility] [address] [place], [place] [id number] Pulmonary Disease 02/07/21 Lani Mendez PA-C [address] [place] [address] [facility] Family Medicine 04/23/24 Caryn Lowery APRN.[facility] [address] [place] [address] Pest Control Service Sales Agent Internal Medicine 04/23/24 Zeinab Garcia PA-C [address] [place] [address] [facility] 04/23/24 Tax Record Clerk Relationship Specialty Start Date End Date Babar Phillip MD [address] [place] [address] PCP - General Internal Medicine 12/17/16 Deanne Patterson MD [address] [facility] [address] [place], [place] [id number] Pulmonary Disease 02/07/21 Lani Mendez PA-C [address] [place] [address] Pest Control Service Sales Agent Family Medicine 04/23/24 Caryn Lowery APRN.PRESALES CONSULTANT [address] [place] [address] Pest Control Service Sales Agent Internal Medicine 04/23/24 Zeinab Garcia PA-C [address] [place] [address] Pest Control Service Sales Agent Family Medicine 04/23/24 Tax Record Clerk Relationship Specialty Start Date End Date Babar Phillip MD [address] [place] [address] PCP - General Internal Medicine 12/17/16 Deanne Patterson MD [facility]6 [facility] [address] [place] [address] Pulmonary Disease 02/07/21 Lani Mendez PA-C [address] [place] [address] Pest Control Service Sales Agent Family Medicine 04/23/24 Caryn Lowery APRN.PRESALES CONSULTANT [address] [place] [address] Pest Control Service Sales Agent Internal Medicine 04/23/24 Zeinab Garcia PA-C [address] [place] [address] Pest Control Service Sales Agent Family Medicine 04/23/24 Tax Record Clerk Relationship Specialty Start Date End Date Babar Phillip MD [address] [place] [address] PCP - General Internal Medicine 12/17/16 Deanne Patterson MD 1945 [facility] [address] [place] [address] Pulmonary Disease 02/07/21 Lani Mendez PA-C [address] [place] [phone] Pest Control Service Sales Agent Family Medicine 04/23/24 08/06/24 Caryn Lowery APRN.PRESALES CONSULTANT [address] [place] [address] Pest Control Service Sales Agent Internal Medicine 04/23/24 Zeinab Garcia PA-C [address] [place] [address] Pest Control Service Sales Agent Family [facility] 04/23/24 08/06/24 Tax Record Clerk Relationship Specialty Start Date End Date Babar Phillip MD [address] [place] [address] PCP - General Internal Medicine 12/17/16 Deanne Patterson MD 1945 [facility] [address] [place] [address] Pulmonary Disease 02/07/21 Caryn Lowery APRN.PRESALES CONSULTANT [address] [place], [place] [address]164[address] Pest Control Service Sales Agent Internal Medicine 04/23/24 Tax Record Clerk Relationship Specialty Start Date End Date Babar Phillip MD [address] [place], [place] 344971 PCP - General Internal Medicine 12/17/16 Deanne Patterson MD 1945 [facility] [address] [place], [place] [address] Pulmonary Disease 02/07/21 aCryn Lowery APRN.PRESALES CONSULTANT [address] [place] [address] Pest Control Service Sales Agent Internal Medicine 04/23/24 Tax Record Clerk Relationship Specialty Start Date End Date Babar Phillip MD [address] [place], [place] [address] PCP - General Internal Medicine 12/17/16 Deanne Patterson MD 1945 [facility] [address] [place], [place] [address] Pulmonary Disease 02/07/21 Caryn Lowery APRN.PRESALES CONSULTANT [address] [place] [address] Pest Control Service Sales Agent Internal Medicine 04/23/24 Tax Record Clerk Relationship Specialty Start Date End Date Babar Phillip MD [address] [place] [address] PCP - General Internal Medicine 12/17/16 Deanne Patterson MD 1945 [facility] [address] [place], [place] [address] Pulmonary Disease 02/07/21 Caryn Lowery APRN.PRESALES CONSULTANT [address] [facility] [place] [address] Pest Control Service Sales Agent Internal Medicine 04/23/24 Tax Record Clerk Relationship Specialty Start Date End Date Babar Phillip MD [address] [place] [address] PCP - General Internal Medicine 12/17/16 Deanne Patterson MD 1945 [facility] [address] [place] [address] Pulmonary Disease 02/07/21 OlderCaryn APRN.PRESALES CONSULTANT [address] [place] [address] Pest Control Service Sales Agent Internal Medicine 04/23/24 Tax Record Clerk Relationship Specialty Start Date End Date Babar Phillip MD [address] [place] [address] PCP - General Internal Medicine 12/17/16 Deanne Patterson MD 1945 [facility] [address] [place], [place] [address] Pulmonary Disease 02/07/21 Caryn Lowery APRN.PRESALES CONSULTANT [address] [facility] [place] [address] Pest Control Service Sales Agent Internal Medicine 04/23/24 Tax Record Clerk Relationship Specialty Start Date End Date Babar Phillip MD [address] [place] [address] PCP - General Internal Medicine 12/17/16 Deanne Patterson MD [address] [facility] [address] [place] [address] Pulmonary Disease 02/07/21 OlderCaryn APRN.PRESALES CONSULTANT [address] [place] [address] Pest Control Service Sales Agent Internal Medicine 04/23/24 Tax Record Clerk Relationship Specialty Start Date End Date Babar Phillip MD [address] [facility] [place] [address] PCP - General Internal Medicine 12/17/16 Deanne Patterson MD [facility] [address] [place] [address] Pulmonary Disease 02/07/21 Older, LILI Rubin.PRESALES CONSULTANT [address] [place] [address] Pest Control Service Sales Agent Internal Medicine 04/23/24 Tax Record Clerk Relationship Specialty Start Date End Date Babar Phillip MD [address] [place] [address] PCP - General Internal Medicine 12/17/16 Deanne Patterson MD 1945 [facility] [address] [place] [address] Pulmonary Disease 02/07/21 Sebastián, LILI Rubin.PRESALES CONSULTANT [address] [place] [address] Pest Control Service Sales Agent Internal Medicine 04/23/24 Tax Record Clerk Relationship Specialty Start Date End Date Babar Phillip MD [address] [facility] [place] [address] PCP - General Internal Medicine 12/17/16 Deanne Patterson MD 1945 [facility] [address] [place], [place] [address] Pulmonary Disease 02/07/21 Older, LILI Rubin.PRESALES CONSULTANT [address] [place], [place] [address] Pest Control Service Sales Agent Internal Medicine 04/23/24 Tax Record Clerk Relationship Specialty Start Date End Date Babar Phillip MD [address] [place], [place] 365[address] PCP - General Internal Medicine 12/17/16 Deanne Patterson MD 1945 [facility] [address] [place], [place] [id number] Pulmonary Disease 02/07/21 Older, LILI Rubin.PRESALES CONSULTANT [address] [facility] [place] [address] Pest Control Service Sales Agent Internal Medicine 04/23/24 Team Status: Active Member Role/Relationship Status Dates Dr. Babar Phillip MD Primary Care Provider Active Team Status: Inactive Member Role/Relationship Status Dates Dr. Babar Phillip MD Primary Care Provider Active Start: December 24, 2024 End: December 25, 2024 Dr. Dianelys Fenton MD Emergency Provider Active S tart: December 24, 2024 End: December 25, 2024 Tax Record Clerk Relationship Specialty Start Date End Date Babar Phillip MD [address] [place], [place] [address] PCP - General Internal Medicine 12/17/16 Deanne Patterson MD 1945 [facility] [address] [place], [place] [id number] Pulmonary Disease 02/07/21 Older, LILI Rubin.PRESALES CONSULTANT [address] [place], [place] [id number] [facility] Internal Medicine 04/23/24 Care Team (unrecognized sect ion and content) Care Team Personnel Name: SARAH GORDILLO MD Member Role: Primary Care Physician Address: Address: [facility] [place] [address]- Care Team Related Persons Name: KATIE REINOSO [...] BE BASED ON THE PRIMARY CLINICAL RECORDS. [employer] provides no warranty or guarantee of the accuracy or completeness of information in this document.
[2024-12-27] VITALS (18 sets, daily range): BP systolic 120–147; BP diastolic 69–107; PULSE 75–98; RESP 16–22; TEMP 36–36.7; O2SAT 88–100; BMI 56.3
[2024-12-27 03:55] LABS: Hematocrit 40.0 % (37-47); Hemoglobin 12.6 g/dL (12.0-15.0); Immature Granulocytes Count 0.040 X10^3/uL (0.0-0.0); Mean Corp Hgb Conc 31.5 g/dL (32-36); Mean Corpuscular Volume 94.8 fL (81-99); Mean Platelet Vol. 9.4 fl (6.2-12.0); NRBC Flagged by Analyzer 0 % (0-5); Platelet Count 224 K/mm3 (150-450); RBC Distribution Width CV 14.6 % (11.6-14.6); RBC Distribution Width SD 50.7 fl (35.1-43.9); Red Blood Count 4.22 M/mm3 (4.2-5.4); White Blood Count 9.0 K/mm3 (4.4-11.0)
[2024-12-27 04:35] LABS: Anion Gap 10 (5-15); BUN 14 mg/dL (4-19); BUN/Creat Ratio 19.2 RATIO (10-20); Calcium,Total 8.9 mg/dL (7.6-11.0); Carbon Dioxide 22.0 mmol/L (21.0-32.0); Chloride 107 mmol/L (98-108); Estimated Creatinine Clearance 133.71 ml/min (50-250); Glucose 132 mg/dL (70-99); Potassium 4.3 mmol/L (3.3-5.1)
[2024-12-27] MEDS: 0.9% Saline Lock 10 ML Syringe IV ×4 (06:35→22:24)
[2024-12-27] MEDS: Senna/Docusate Sodium 1 Tablet 2 TABLET PO (08:18)
[2024-12-27] MEDS: 0.9% Normal Saline (1000mL) 1,000 ML 100 ML IV (08:26)
[2024-12-27] MEDS: Vancomycin HCl 1,750 MG in 0.9% Normal Saline (500mL Bag) 500 ML 250 MG IV ×2 (08:41→21:18)
--- NOTE | 2024-12-27 10:01 | EX.PCM.CON.S ---
Assessment & Plan Assessment/Plan (1) Abscess of breast, left: (2) Cellulitis of breast: PLAN: Plan I have been consulted in conjunction with Dr. Lorenz. He has independently evaluated this patient. Patient is a 44 y/o F with a left breast abscess with associated cellulitis. Dr. Lorenz will plan to perform an incision and drainage/debridement of the left breast abscess. Procedure details, risks and benefits have been explained to the patient. Patient has had the opportunity to ask and have questions answered. Patient verbally understands and agrees with the proposed plan. Thank you for allowing us to participate in this patient's care. HPI Consult Data Date of Consult: 12/27/24 HPI Narrative Reason for Consultation: Left breast abscess and cellulitis HPI Narrative: DARREN REINOSO, is a 44 F who presents with a 5 day history of worsening erythema and pain of the left breast. Patient states last she was evaluated by her PCP for an ear infection. Patient noted that night after the shower having a small pimple on the underside of the left breast. Patient states on Wednesday morning the redness and firmness of the breast had spread. She notes seeing her PCP again who circled the area and recommended if it became worse than to proceed to the ED. She was also placed on doxycycline. Patient states the area became worse and she went to [place] ED, where no treatment was performed. She continued through the weekend with the breast increasing in erythema and pain. She presented on Wednesday to [facility] ED, where she had an I&D and place on Keflex in addition to the doxy. She notes she had a relief of pressure. She was recommended to follow-up with a general surgeon. She was evaluated by Dr. Gonzalez yesterday who recommended the patient return to the ED. Patient notes while hospitalized, nursing staff noted to have an increase in erythema. She denies any history of MRSA. She notes feeling overall warm, however denies a fever. She denies flu-like symptoms. She feels as though there is still remaining fluid within the breast. [facility] Medical History (Updated 12/26/24 @ 18:11 by Makenna Martinez) Hx of substance abuse Hypothyroidism GERD (gastroesophageal reflux disease) CPAP (continuous positive airway pressure) dependence Sleep apnea History of alcohol abuse Nausea and vomiting Diarrhea Depression Anxiety Thyroid disease Diabetes Arthritis Fatty liver Back pain Nausea Gastric reflux Smoker On home oxygen therapy COPD (chronic obstructive pulmonary disease) Asthma Shortness of breath on exertion Chronic cough History of edema History of echocardiogram History of Holter monitoring History of irregular heartbeat Hypertension History of trigger finger Bronchitis Asthma Acute bronchitis due to human metapneumovirus Acute respiratory failure with hypoxia Morbid obesity with BMI of 50.0-59.9, adult Hypoxemia Mild intermittent asthma Viral bronchitis Home Medications ?Medication ?Instructions ?Recorded ?Last Taken ?Type ipratropium 0.5 mg-albuterol 3 mg 3 ml IH Q6H PRN PRN Sob &/Or 05/24/19 Unknown History (2.5 mg base)/3 mL nebulization Wheezing soln furosemide 40 mg tablet 40 mg PO DAILY diruetic #5 tabs 10/03/19 Unknown Rx metoprolol succinate 25 mg 25 mg PO BID heart bp 11/02/19 01/04/23 History tablet,extended release 24 hr famotidine 20 mg tablet (Pepcid) 40 mg PO DAILY gerd 11/13/19 01/04/23 History levothyroxine 50 mcg capsule 50 mcg PO DAILY thyroid 05/15/21 01/04/23 History omeprazole 20 mg capsule,delayed 20 mg PO QHS gerd 05/01/22 01/04/23 History release lamotrigine 100 mg tablet 200 mg PO QHS mood 07/31/22 Unknown History potassium chloride 10 mEq 10 meq PO DAILY supplement 07/31/22 Unknown History capsule,extended release cetirizine 10 mg capsule 10 mg PO HS allergies #30 caps 02/12/23 Unknown Rx albuterol sulfate 90 mcg/actuation 2 puff inhalation Q4H PRN PRN 11/01/23 Unknown Rx aerosol inhaler Asthma #8.5 grams dulaglutide 0.75 mg/0.5 mL 0.75 mg subcut QWEEK blood glucose 11/04/23 Unknown History subcutaneous pen injector ([employer]) Held on 12/26/24. Instructions: infection needs to clear first fluticasone furoate 200 1 inh inhalation QDAY asthma #60 ea 11/04/23 Unknown Rx mcg-vilanterol 25 mcg/dose inhalation powder (Breo Ellipta) montelukast 10 mg tablet 10 mg PO DAILY asthma #30 tabs 12/08/23 Unknown Rx doxycycline hyclate 100 mg tablet 100 mg PO BID #20 tabs 01/04/24 Unknown Rx cephalexin 500 mg capsule 500 mg PO Q6 7 days #28 CAPSULES 12/25/24 Unknown Rx Allergy/AdvReac Type Severity Reaction Status Date / Time celecoxib (From Celebrex) Allergy PT UNSURE Verified 12/26/24 16:14 OF REACTION codeine Allergy Anaphylaxis Verified 12/26/24 16:14 nirmatrelvir (From Paxlovid) Allergy Vomiting Verified 12/26/24 16:14 propoxyphene napsylate (From Allergy Rash Verified 12/26/24 16:14 Darvocet-N) ritonavir (From Paxlovid) Allergy Vomiting Verified 12/26/24 16:14 Sulfa (Sulfonamide Allergy Anaphylaxis Verified 12/26/24 16:14 Antibiotics) amoxicillin AdvReac Other Verified 12/26/24 16:14 Family History Mother Heart disease Father Hypertension Other Arthritis Cervical cancer Depression Surgical History (Updated 12/26/24 @ 18:11 by Makenna Martinez) History of appendectomy Hx of tubal ligation Hx of thumb surgery H/O elbow surgery History of carpal tunnel surgery Social History Smoking Status: Current every day smoker tobacco type: cigarettes second hand exposure: Yes alcohol intake: current alcohol intake frequency: a few times a month Alcohol type: wine substance use type: marijuana ROS Constitutional Constitutional: Reports systems reviewed and no addt'l complaints, except as documented Eyes Eyes: Reports systems reviewed and no addt'l complaints, except as documented ENT HEENT: Reports systems reviewed and no addt'l complaints, except as documented Cardiovascular Cardiovascular: Reports systems reviewed and no addt'l complaints, except as documented Respiratory/Chest Respiratory/Chest: Reports systems reviewed and no addt'l complaints, except as documented Gastrointestinal Gastrointestinal: Reports systems reviewed and no addt'l complaints, except as documented Genitourinary Genitourinary: Reports systems reviewed and no addt'l complaints, except as documented Musculoskeletal Musculoskeletal: Reports systems reviewed and no addt'l complaints, except as documented Integumentary Integumentary: Reports systems reviewed and no addt'l complaints, except as documented Neurologic Neurologic: Reports systems reviewed and no addt'l complaints, except as documented Psychiatric Psychiatric: Reports systems reviewed and no addt'l complaints, except as documented Endocrine Endocrinology: Reports systems reviewed and no addt'l complaints, except as documented Hematologic/Lymphatic Hematologic/Lymphatic: Reports systems reviewed and no addt'l complaints, except as documented Allergic/Immunologic Allergic/Immunologic: Reports systems reviewed and no addt'l complaints, except as documented Physical Exam Const alert, oriented x3 and no apparent distress HEENT normocephalic and head/scalp atraumatic Eyes PERRL Neck full ROM Chest Chest Narrative: Left breast with small puncture of the underbreast. Moderate amount of erythema noted. Resp normal respiratory effort and clear to auscultation bilaterally Cardio regular rate and regular rhythm GI normal to inspection, nondistended, normoactive bowel sounds no CVA tenderness Back/Spine no CVA tenderness Extremity normal to inspection Skin Skin Narrative: Single puncture of underside of left breast Neuro no focal motor deficits and no sensory deficits noted Psych mental status grossly normal Lab / Micro Data 12/27/24 03:17 12/27/24 03:17 Labs: Laboratory Results - last 24 hr 12/26/24 16:16: WBC 9.5, RBC 4.48, Hgb 13.3, Hct 42.6, MCV 95.1, MCH 29.7, MCHC 31.2 L, RDW Std Deviation 50.9 H, RDW Coeff of Bernice 14.6, Plt Count 232, MPV 9.2, Immature Gran % (Auto) 0.400, Neut % (Auto) 63.4, Lymph % (Auto) 27.1, Flathead % (Auto) 7.8, Eos % (Auto) 0.9, Baso % (Auto) 0.4, Absolute Neuts (auto) 6.0, Absolute Lymphs (auto) 2.57, Nucleated RBC % 0, Sodium 142, Potassium 4.1, Chloride 107, Carbon Dioxide 26.2, Anion Gap 9, BUN 11, Creatinine 0.74, Estim Creat Clear Calc 133.83, Est GFR (MDRD) Non-Af 102, BUN/Creatinine Ratio 15.5, Glucose 98, Calcium 9.2 12/26/24 20:33: POC Glucose 125 H 12/27/24 03:17: WBC 9.0, RBC 4.22, Hgb 12.6, Hct 40.0, MCV 94.8, MCH 29.9, MCHC 31.5 L, RDW Std Deviation 50.7 H, RDW Coeff of Bernice 14.6, Plt Count 224, MPV 9.4, Immature Gran % (Auto) 0.400, Neut % (Auto) 60.7, Lymph % (Auto) 29.4, Flathead % (Auto) 8.0, Eos % (Auto) 1.1, Baso % (Auto) 0.4, Absolute Neuts (auto) 5.5, Absolute Lymphs (auto) 2.65, Nucleated RBC % 0, Sodium 139, Potassium 4.3, Chloride 107, Carbon Dioxide 22.0, Anion Gap 10, BUN 14, Creatinine 0.74, Estim Creat Clear Calc 133.71, Est GFR (MDRD) Non-Af 102, BUN/Creatinine Ratio 19.2, Glucose 132 H, Calcium 8.9 12/27/24 06:32: POC Glucose 98 Charges/Coding Visit Charges Inpatient E&M: 90010 Init Hosp L2
--- NOTE | 2024-12-27 10:23 | EKG12_ITS ---
Test Reason : PREOP Blood Pressure : */* mmHG Vent. Rate : 72 BPM Atrial Rate : 72 BPM P-R Int : 182 ms QRS Dur : 80 ms QT Int : 386 ms P-R-T Axes : * 137 108 degrees QTcB Int : 422 ms Normal sinus rhythm Left posterior fascicular block Abnormal ECG When compared with ECG of 16-Jan-2018 21:51, Left posterior fascicular block is now Present Nonspecific T wave abnormality now evident in Lateral leads Confirmed by SEEMA LUTZ, CRIS ([id number]), associate editor CONRADO PALMA ([id number]) on 01/02/2025 8:52:42 AM Referred By: JOSE RAUL Confirmed By: CRIS STEPHENSON MD
[2024-12-27] MEDS: Budesonide Respules 0.5 MG/2 ML AMPUL.NEB. INHALATION ×2 (10:33→19:31)
[2024-12-27] MEDS: Albuterol 2.5 MG/3 ML VIAL.NEB. INHALATION ×2 (10:33→19:30)
--- NOTE | 2024-12-27 10:59 | CASEMGMT ---
Dx:worsening left breast cellulitis LACE:2 6-Clicks:24 Medical record reviewed and patient evaluated for identification of discharge planning needs. Based on this review, at this time criteria are not present to indicate a need for discharge planning. Will remain available to assist with discharge planning needs as identified or requested. Pt to have I&D this date.
[2024-12-27 11:31] LABS: Hematocrit 40.6 % (37-47); Hemoglobin 12.9 g/dL (12.0-15.0); Immature Granulocytes Count 0.030 X10^3/uL (0.0-0.0); Mean Corp Hgb Conc 31.8 g/dL (32-36); Mean Corpuscular Volume 93.3 fL (81-99); Mean Platelet Vol. 9.2 fl (6.2-12.0); NRBC Flagged by Analyzer 0 % (0-5); Platelet Count 217 K/mm3 (150-450); RBC Distribution Width CV 14.6 % (11.6-14.6); RBC Distribution Width SD 50.3 fl (35.1-43.9); Red Blood Count 4.35 M/mm3 (4.2-5.4); White Blood Count 8.1 K/mm3 (4.4-11.0)
[2024-12-27 12:25] LABS: Anion Gap 10 (5-15); BUN 12 mg/dL (4-19); BUN/Creat Ratio 17.9 RATIO (10-20); Carbon Dioxide 21.6 mmol/L (21.0-32.0); Chloride 108 mmol/L (98-108); Estimated Creatinine Clearance 149.91 ml/min (50-250); Glucose 100 mg/dL (70-99); Potassium 4.1 mmol/L (3.3-5.1)
[2024-12-27 12:34] LABS: Calcium,Total 9.0 mg/dL (7.6-11.0)
--- NOTE | 2024-12-27 13:25 | NURSING ---
AC notified that pt no longer has IV access and will need IV access upon arrival to their unit
--- NOTE | 2024-12-27 14:44 | PCM.PRE.AN2 ---
ASA Classification* ASA Classification ASA Classification: 3 Assessment & Plan Anesthesia* Anesthesia Assessment Anesthesia Assessment: Discussed sedation and/or anesthesia options, risks, benefits, and alternatives with patient/parents/legal guardian/POA. Questions invited. The patient/parents/legal guardian/POA seems to understand and agrees to proceed with anesthesia plan. Reviewed the physical assessment, medical history, allergy history and patient home medications list prior to surgery/procedure/anesthetic and documented any changes. Performed airway and anesthesia risk assessments. Anesthesia Type Anesthesia Type: General History Source History Obtained from:: Patient and Chart Anesthesia Focused Assessment* Temperature: 98.0 F Pulse Rate: 75 Blood Pressure: 134/75 Respiratory Rate: 18 Pulse Ox: 95 Oxygen Delivery Method: Room Air Airway Assessment Mouth opens: >3 cm Mallampati Score: II Teeth Condition: Chipped/Broken and Missing Neck Range of motion (ROM): Limited ROM Comment: Obese Labs Anesthesia Preop lab: CBC WBC 8.1 K/mm3 (4.4-11.0) 12/27/24 11:20 12/27/24 RBC 4.35 M/mm3 (4.2-5.4) 12/27/24 11:20 12/27/24 Hgb 12.9 g/dL (12.0-15.0) 12/27/24 11:20 12/27/24 Hct 40.6 % (37-47) 12/27/24 11:20 12/27/24 Plt Count 217 K/mm3 (150-450) 12/27/24 11:20 12/27/24 CHEMISTRY Potassium 4.1 mmol/L (3.3-5.1) 12/27/24 11:20 12/27/24 Sodium 140 mmol/L (133-145) 12/27/24 11:20 12/27/24 Magnesium 2.5 mg/dL (1.6-2.6) 12/22/19 02:52 12/22/19 BUN 12 mg/dL (4-19) 12/27/24 11:20 12/27/24 Creatinine 0.66 mg/dL (0.70-1.20) L 12/27/24 11:20 12/27/24 Glucose 100 mg/dL (70-99) H 12/27/24 11:20 12/27/24 POC Glucose 98 mg/dL (74-106) 12/27/24 06:32 12/27/24 TSH 5.020 uIU/mL (0.300-4.200) H 12/27/24 11:20 12/27/24 COAG Pre-Assessment Diagnosis/Proposed Procedure Planned Operative Procedure(s): I&D abscess below breast Anesthesia History 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 When Was Last Pacemaker Check QUESTION #4 FULL TEXT: You/Your Family Experience fever (hyperthermia) with Anesthesia Last Oral Intake Last Oral intake: Last Oral Intake NPO since 00:00 12/27/24 12:07 Meds taken in AM with sips of Yes 12/27/24 12:07 water? Meds patient instructed to see 12/27/24 12:07 take am of surgery PONV PONV - studio control operator: PONV - studio control operator Female HX of Motion Sickness HX of N/V After Surgery Non-Smoker Duration of Surgery greater than 60 minutes Number of Risk Factors PONV Score Height & Weight Height & Weight: Anesthesia: Height & Weight Height 5 ft 3 in 12/27/24 12:07 Weight: 144.3 kg 12/27/24 12:07 Body Mass Index (BMI) 56.3 12/27/24 12:07 Respiratory Assessment Respiratory Assessment - studio control operator: Respiratory Tract Infection Hx - studio control operator Hx Respiratory Tract Infection No 07/27/22 15:22 STOP Sleep Apnea STOP Sleep Apnea - studio control operator: STOP Sleep Apnea - studio control operator Hx Hypertension Yes: CONTROLLED WITH MED 12/26/24 18:32 Hx Sleep Apnea Yes 12/26/24 18:32 CPAP Yes 12/26/24 18:32 BIPAP No 12/26/24 18:32 Do you snore loudly (louder than talking or can be heard Do you often feel tired/ fatigued/ sleepy during daytime? Has anyone observed you stop breathing during sleep? STOP Results Positive 12/26/24 18:32 QUESTION #5 FULL TEXT : Do you snore loudly (louder than talking or can be heard through closed doors)? Tobacco Use History Tobacco Use History - studio control operator: Tobacco Use History - studio control operator Tobacco Use Smoking Status Current every day smoker 12/27/24 07:56 Hx Tobacco Use Yes 12/26/24 18:32 Years Smoking Packs Smoked per Day Smoking Cessation Date was within the last 15 years Hx Smoking Cessation Date Hx Smoking Cessation No 12/26/24 18:32 Counseling Hematologic Medial History Hematologic Hx - studio control operator: Hematologic Medical Hx - nurse private duty Hx of Blood Transfusion No 12/26/24 18:32 Hx of Transfusion in last 3 No 12/26/24 18:32 Months Date of Last Transfusion (if within last 3 months) Ever experience any problems No 12/26/24 18:32 with transfusion(s)? Specify any problems Hx of Preganancy in last 3 N/A 12/26/24 18:32 Months Nurse Filling Out Transfusion FSTEINER 12/26/24 18:32 & Questions: Date: 12/26/24 12/26/24 18:32 Time: 18:34 12/26/24 18:32 Patient unable to answer at this time (ie. confused, unrespo /Reproduction History /Reproductive History - studio control operator: /Reproductive Hx- studio control operator Hx Now Gestational Age (in weeks): EDC: Hx Hx Para Hx Section SAB No 12/26/24 18:32 Active Medications Active Medications: Current Medications Generic Name Dose Route Start Last Admin Trade Name Freq PRN Reason Stop Dose Admin Acetaminophen 1,000 mg 12/26/24 22:00 12/27/24 13:26 Acetaminophen 500 Mg Tablet PO Not Given Q8 KERI Albuterol Sulfate 2.5 mg 12/26/24 18:29 Albuterol 2.5 Mg/3 Ml Vial.Neb. INHALATION Q2H PRN PRN SOB &/OR WHEEZING Albuterol Sulfate 2.5 mg 12/26/24 18:40 12/27/24 10:33 Albuterol 2.5 Mg/3 Ml Vial.Neb. INHALATION 2.5 mg Q6HWA.RT KERI Administration Budesonide 0.5 mg 12/26/24 18:40 12/27/24 10:33 Budesonide Respules 0.5 Mg/2 Ml Ampul.Neb. INHALATION 0.5 mg Q12H.RT KERI Administration Famotidine 40 mg 12/27/24 10:00 12/27/24 08:17 Famotidine 20 Mg Tablet PO 40 mg DAILY KERI Administration Furosemide 40 mg 12/27/24 10:00 12/27/24 08:18 Furosemide 40 Mg Tablet PO Not Given DAILY KERI Protocol Glucagon 1 mg 12/26/24 18:29 Glucagon 1 Mg/Ml Syringe IM X1 PRN HYPOGLYCEMIA Protocol Dextrose 250 mls @ 0 mls/hr 12/26/24 18:29 Dextrose 10%-Water IV .Q0M PRN HYPOGLYCEMIA Protocol As Directed Vancomycin IV-PHARMACY TO DOSE 500 mls @ 250 mls/hr 12/26/24 18:29 1 each/ Sodium Chloride IV X1 PRN Rx to Dose Protocol Sodium Chloride 250 mls @ 15 mls/hr 12/26/24 18:38 IV .[id number] PRN Saline Flush Sodium Chloride 250 mls @ 15 mls/hr 12/26/24 18:38 IV .[id number] PRN Additional IVPB Infusion Vancomycin HCl 1,750 mg/ 535 mls @ 250 mls/hr 12/27/24 08:00 12/27/24 11:19 Sodium Chloride IV Infused Q12H KERI Infusion Sodium Chloride 1,000 mls @ 100 mls/hr 12/27/24 08:10 12/27/24 13:15 IV 0 mls/hr .Q10H KERI Infusion Insulin Human Lispro 0 unit 12/26/24 22:00 12/27/24 12:08 Insulin Lispro 100 Unit/Ml Insuln.Pen SC Not Given ACHS KERI Protocol Ketorolac Tromethamine 15 mg 12/26/24 18:29 Ketorolac 15 Mg/Ml Vial IV 12/31/24 18:29 Q6H PRN PRN Pain Score 1-10 Lamotrigine 200 mg 12/26/24 22:00 12/26/24 22:08 Lamotrigine 100 Mg Tablet PO 200 mg QHS KERI Administration Levothyroxine Sodium 50 mcg 12/27/24 06:00 12/27/24 05:29 Levothyroxine 50 Mcg Tablet PO Not Given DAILY@0600 KERI Loratadine 10 mg 12/26/24 22:00 12/26/24 22:09 Loratadine 10 Mg Tablet PO 10 mg HS KERI Administration Melatonin 10 mg 12/26/24 18:29 Melatonin 10 Mg Tablet PO QHS PRN PRN INSOMNIA Metoprolol Tartrate 25 mg 12/26/24 22:00 12/27/24 08:18 Metoprolol Tartrate 25 Mg Tablet PO 25 mg BID KERI Administration Protocol Morphine Sulfate 2 - 4 mg 12/26/24 18:29 12/27/24 08:17 Morphine 2 Mg/Ml Syringe IV 2 mg Q3H PRN PRN Administration Pain Score 6-10 Morphine Sulfate 2 - 4 mg 12/26/24 18:36 12/27/24 12:12 Morphine 4 Mg/Ml Syringe IV 4 mg Q3H PRN PRN Administration Pain Score 6-10 Nicotine 14 mg 12/27/24 10:00 12/27/24 08:17 Nicotine 14 Mg Patch TD 14 mg DAILY KERI Administration Ondansetron HCl 4 mg 12/26/24 18:29 Ondansetron 4 Mg/2 Ml Vial IV Q8H PRN PRN NAUSEA/VOMITING Pantoprazole Sodium 20 mg 12/26/24 22:00 12/26/24 22:09 Pantoprazole Sodium 20 Mg Tablet PO 20 mg QHS KERI Administration Potassium Chloride 10 meq 12/27/24 08:00 12/27/24 08:02 Potassium Chloride Oral Tablet 10 Meq PO Not [facility] Senna/Docusate Sodium 2 tablet 12/26/24 18:29 12/27/24 08:18 Senna/Docusate Sodium 1 Tablet PO 2 tablet BID PRN PRN Administration Constipation Sodium Chloride 10 - 40 ml 12/26/24 18:38 12/27/24 12:12 0.9% Saline Lock 10 Ml Syringe IV 10 ml UD PRN Administration SALINE FLUSH Vancomycin Protocol 1 lab 12/28/24 06:30 Vancomycin Trough/Random Due 12/28/24 08:30 DAILY [facility] History Hx of substance abuse Hypothyroidism GERD (gastroesophageal reflux disease) CPAP (continuous positive airway pressure) dependence Sleep apnea History of alcohol abuse Nausea and vomiting Diarrhea Depression Anxiety Thyroid disease Diabetes Arthritis Fatty liver Back pain Nausea Gastric reflux Smoker On home oxygen therapy COPD (chronic obstructive pulmonary disease) Asthma Shortness of breath on exertion Chronic cough History of edema History of echocardiogram History of Holter monitoring History of irregular heartbeat Hypertension History of trigger finger Bronchitis Asthma Acute bronchitis due to human metapneumovirus Acute respiratory failure with hypoxia Morbid obesity with BMI of 50.0-59.9, adult Hypoxemia Mild intermittent asthma Viral bronchitis Home Medications ?Medication ?Instructions ?Recorded ?Last Taken ?Type ipratropium 0.5 mg-albuterol 3 mg 3 ml IH Q6H PRN PRN Sob &/Or 05/24/19 Unknown History (2.5 mg base)/3 mL nebulization Wheezing soln furosemide 40 mg tablet 40 mg PO DAILY diruetic #5 tabs 10/03/19 Unknown Rx metoprolol succinate 25 mg 25 mg PO BID heart bp 11/02/19 01/04/23 History tablet,extended release 24 hr famotidine 20 mg tablet (Pepcid) 40 mg PO DAILY gerd 11/13/19 01/04/23 History levothyroxine 50 mcg capsule 50 mcg PO DAILY thyroid 05/15/21 01/04/23 History omeprazole 20 mg capsule,delayed 20 mg PO QHS gerd 05/01/22 01/04/23 History release lamotrigine 100 mg tablet 200 mg PO QHS mood 07/31/22 Unknown History potassium chloride 10 mEq 10 meq PO DAILY supplement 07/31/22 Unknown History capsule,extended release cetirizine 10 mg capsule 10 mg PO HS allergies #30 caps 02/12/23 Unknown Rx albuterol sulfate 90 mcg/actuation 2 puff inhalation Q4H PRN PRN 11/01/23 Unknown Rx aerosol inhaler Asthma #8.5 grams dulaglutide 0.75 mg/0.5 mL 0.75 mg subcut QWEEK blood glucose 11/04/23 Unknown History subcutaneous pen injector ([employer]) Held on 12/26/24. Instructions: infection needs to clear first fluticasone furoate 200 1 inh inhalation QDAY asthma #60 ea 11/04/23 Unknown Rx mcg-vilanterol 25 mcg/dose inhalation powder (Breo Ellipta) montelukast 10 mg tablet 10 mg PO DAILY asthma #30 tabs 12/08/23 Unknown Rx doxycycline hyclate 100 mg tablet 100 mg PO BID #20 tabs 01/04/24 Unknown Rx cephalexin 500 mg capsule 500 mg PO Q6 7 days #28 CAPSULES 12/25/24 Unknown Rx Allergy/AdvReac Type Severity Reaction Status Date / Time celecoxib (From Celebrex) Allergy PT UNSURE Verified 12/26/24 16:14 OF REACTION codeine Allergy Anaphylaxis Verified 12/26/24 16:14 nirmatrelvir (From Paxlovid) Allergy Vomiting Verified 12/26/24 16:14 propoxyphene napsylate (From Allergy Rash Verified 12/26/24 16:14 Darvocet-N) ritonavir (From Paxlovid) Allergy Vomiting Verified 12/26/24 16:14 Sulfa (Sulfonamide Allergy Anaphylaxis Verified 12/26/24 16:14 Antibiotics) amoxicillin AdvReac Other Verified 12/26/24 16:14 Family History Mother Heart disease Father Hypertension Other Arthritis Cervical cancer Depression Surgical History History of appendectomy Hx of tubal ligation Hx of thumb surgery H/O elbow surgery History of carpal tunnel surgery Social History Smoking Status: Current every day smoker tobacco type: cigarettes second hand exposure: Yes alcohol intake: current alcohol intake frequency: a few times a month Alcohol type: wine substance use type: marijuana Review of Systems (Anesthesia) ROS Narrative System reviewed and no additional complaints, except as documented.
[2024-12-27] MEDS: Lactated Ringers 1,000 ML 15 ML IV (14:47)
[2024-12-27] MEDS: fentaNYL 100 MCG/2 ML Ampul 50 MCG IV (15:18)
[2024-12-27] MEDS: Lidocaine 1% (5 ml sdv) 5 ML Vial 10 ML IV (15:18)
[2024-12-27] MEDS: Bupiv/Epi 0.25% 30 ML Vial (15:35)
[2024-12-27] MEDS: Albuterol IH (6.7 GM) 1 PUFF INHALER 4 PUFF INHALATION (15:41)
--- NOTE | 2024-12-27 15:58 | PN_ITS ---
Subjective Subjective Patient seen and examined with her nurse by his bedside. She complained of pain in her left breast. She denied any fever, chills, cough, chest pain or any other symptoms. Review of systems is otherwise negative. Breast USG is pending. Objective Data Objective Data Vital Signs: Vital Signs Temp Pulse Resp BP Pulse Ox O2 Del Method 98.0 F 75 18 134/75 H 95 Room Air 12/27/24 14:46 12/27/24 14:46 12/27/24 14:46 12/27/24 14:46 12/27/24 14:46 12/27/24 14:46 Oxygen Delivery Method Room Air Weight: 318 lb 2.032 oz Body Mass Index (BMI) 56.3 Intake & Output: Intake and Output for Last 24 Hours 12/25/24 12/26/24 12/27/24 23:59 23:59 23:59 Intake Total 640 / 640 751.66 / 751.66 Balance 640 / 640 751.66 / 751.66 Lab / Micro Data 12/27/24 11:20 12/27/24 11:20 Labs: Laboratory Results - last 24 hr 12/26/24 16:16: WBC 9.5, RBC 4.48, Hgb 13.3, Hct 42.6, MCV 95.1, MCH 29.7, MCHC 31.2 L, RDW Std Deviation 50.9 H, RDW Coeff of Bernice 14.6, Plt Count 232, MPV 9.2, Immature Gran % (Auto) 0.400, Neut % (Auto) 63.4, Lymph % (Auto) 27.1, [place] % (Auto) 7.8, Eos % (Auto) 0.9, Baso % (Auto) 0.4, Absolute Neuts (auto) 6.0, Absolute Lymphs (auto) 2.57, Nucleated RBC % 0, Sodium 142, Potassium 4.1, Chloride 107, Carbon Dioxide 26.2, Anion Gap 9, BUN 11, Creatinine 0.74, Estim Creat Clear Calc 133.83, Est GFR (MDRD) Non-Af 102, BUN/Creatinine Ratio 15.5, Glucose 98, Calcium 9.2 12/26/24 20:33: POC Glucose 125 H 12/27/24 03:17: WBC 9.0, RBC 4.22, Hgb 12.6, Hct 40.0, MCV 94.8, MCH 29.9, MCHC 31.5 L, RDW Std Deviation 50.7 H, RDW Coeff of Bernice 14.6, Plt Count 224, MPV 9.4, Immature Gran % (Auto) 0.400, Neut % (Auto) 60.7, Lymph % (Auto) 29.4, [place] % (Auto) 8.0, Eos % (Auto) 1.1, Baso % (Auto) 0.4, Absolute Neuts (auto) 5.5, Absolute Lymphs (auto) 2.65, Nucleated RBC % 0, Sodium 139, Potassium 4.3, Chloride 107, Carbon Dioxide 22.0, Anion Gap 10, BUN 14, Creatinine 0.74, Estim Creat Clear Calc 133.71, Est GFR (MDRD) Non-Af 102, BUN/Creatinine Ratio 19.2, G lucose 132 H, Calcium 8.9 12/27/24 06:32: POC Glucose 98 12/27/24 11:20: WBC 8.1, RBC 4.35, Hgb 12.9, Hct 40.6, MCV 93.3, MCH 29.7, MCHC 31.8 L, RDW Std Deviation 50.3 H, RDW Coeff of Bernice 14.6, Plt Count 217, MPV 9.2, Immature Gran % (Auto) 0.400, Neut % (Auto) 55.2, Lymph % (Auto) 35.9, [place] % (Auto) 6.9, Eos % (Auto) 1.4, Baso % (Auto) 0.2, Absolute Neuts (auto) 4.5, Absolute Lymphs (auto) 2.91, Nucleated RBC % 0, Sodium 140, Potassium 4.1, Chloride 108, Carbon Dioxide 21.6, Anion Gap 10, BUN 12, Creatinine 0.66 L, Estim Creat Clear Calc 149.91, Est GFR (MDRD) Non-Af 109, BUN/Creatinine Ratio 17.9, Glucose 100 H, Calcium 9.0, TSH 5.020 H Physical Exam Const alert and oriented x3 Constitutional Narrative: class III obesity. In moderate distress due to the pain. HEENT normocephalic, head/scalp atraumatic, moist oral mucous membranes and oropharynx normal Eyes PERRL and EOMs intact bilaterally Neck no lymphadenopathy and supple Lymph Lymphatic: no lymphedema noted Resp normal respiratory effort, normal air movement and clear to auscultation bilaterally Cardio regular rate, regular rhythm, S1 normal heart sound, S2 normal heart sound and no murmurs GI normal to inspection, nondistended, normoactive bowel sounds, soft to palpation and non-tender Extremity General Extremity: no tenderness to palpation of joints or extremities Skin Skin Narrative: lateral aspect of left breast swollen, erythematous, tender to touch. NO fluctuant areas on palpation. Neuro CN's II-XII intact bilaterally and no focal motor deficits Motor Exam: general weakness Psych thought process normal and cooperative Mood & Affect: anxious Assessment & Plan Assessment/Plan (1) Cellulitis of breast: (2) Abscess of breast, left: PLAN: Plan #left breast cellulitis with abscess * failed outpatient treatment. * on IV vancomycin. * Breast USG pending * general surgery on board. Awaiting the USG results to determine whether to do I&D * on PO tylenol, PO oxycodone and iV morphine prn for pain. * #TYpe 2 diabetes mellitus: on ISS. Accuchecks ACHS #EAMON: on CPAP qhs #History of COPD: not in exacerbation. Breathing treatment with bronchodilators. #Hypothyroidism: on synthroid. TSH is 5.020. Will check T4 and T3. #GERD: on PPI #Depression and anxiety: on lamotrigine. #Hypertension: on metoprolol. #Class III obesity: BMI is 56.4. Complicates acute care, expected recovery and prognosis. #Nicotine dependence: counseled to quit. Nicotine patch 21mg daily prn. DVT prophylaxis: lovenox Charges/Coding Visit Charges Inpatient E&M: 21036 Subs Hosp L2
--- NOTE | 2024-12-27 16:13 | PCM.POST.ANE ---
Anesthesia: Postop Eval I Current Vital Signs Temperature: 97.6 F Pulse Rate: 84 Blood Pressure: 132/69 Respiratory Rate: 22 Pulse Ox: 100 Oxygen Delivery Method: Simple Mask Oxygen Flow Rate (L/min): 6 Assessment Airway patent: Yes Spontaneous unlabored respirations: Yes Mental status: Awake and Calm nausea: No Vomiting: No Anesthesia Complication: No Fluid Hydration Crystalloid volume administer (ml): 1,000 Total IV fluid infused: 1,000 Progress Note Anesthesia document: Postop Eval 1 completed: Yes
--- NOTE | 2024-12-27 16:32 | PCM.OPRPT ---
Procedures Integumentary [id number]: [id number] Drainage of breast lesion Operative Report (Standard) Operative Information Date of Procedure: 12/27/24 Pre-Operative Diagnosis: left breast abscess Post-Operative Diagnosis: left breast abscess Surgery/Procedure Performed: Incision and drainage of left breast abscess lawn care professional: No Type of Anesthesia: General and Local RN Documented Start/Stop Times: Operation Date: 12/27/24 13:45 Case Time Into Pre-Op 12/27/24 13:56 Anesthesia Start 12/27/24 15:14 Into Room 12/27/24 15:14 Procedure Start 12/27/24 15:30 Procedure End 12/27/24 15:40 Anesthesia End 12/27/24 16:03 Out of Room 12/27/24 16:03 Into Recovery 12/27/24 16:05 Procedure Start Time: 15:30 Procedure Stop Time: 15:40 Select all DRAINS/GRAFTS/IMPLANTS that apply: Drains Drain details: Half-inch iodoform gauze packing placed Estimated Blood Loss: Minimal Specimen collected: Yes Description of specimen(s) removed: Wound cultures obtained Description of surgery: The patient is a 44-year-old female who developed a left breast abscess about a week ago. She was seen in the emergency department recently and an I&D was performed. She was placed on oral antibiotics but this did not readily improve. She was seen by an outside general surgeon and recommended that she get admitted for IV antibiotics. She presented to the [facility] emergency department last evening and was admitted for IV antibiotics. She continues to have persistent erythema and so repeat I&D was recommended. We discussed the details of the planned procedure and she wished to proceed. Patient was brought to the operating room today following informed consent. Antibiotics were being given and a timeout was performed. She was placed supine on the operative table with arms outstretched and arm boards. The left breast was then prepped and draped in the usual sterile manner. Local anesthetic was infiltrated liberally. A cruciate incision was then made using a #15 blade. Next a curved hemostat was then used to break up any loculations. This was followed by digital the loculation using my index finger. This produced some turbid blood-tinged fluid but no significant radha pus per se. Wound cultures were obtained. After this the wound was extensively irrigated with saline. Hemostasis was excellent. The wound was then packed with half-inch iodoform gauze. A dressing consisting of gauze 4 x 4's and tape were applied. She was awakened from anesthesia and taken to recovery in good condition. Surgical Findings: See procedure note Complications Complications: No Admit VTE Documentation VTE Present on Admission: No VTE Mechan Device Prophylaxis: SCD's VTE Pharm Prophylaxis ordered?: No Reason prophylaxis not ordered: Treatment Not Indicated
--- NOTE | 2024-12-27 16:37 | POSTOPAN2_ITS ---
Anesthesia Postop Eval I Sum Postop Eval Completion status Anesthesia document: Postop Eval 1 completed: Yes Anesthesia Postop Eval I Summary Anesthesia Postop Eval I Summary: Anesthesia Postop Eval I: Assessment Summary Airway patent Yes 12/27/24 16:14 FUR [email or web address].[email or web address] Spontaneous unlabored Yes 12/27/24 16:14 FUR STRETCHER.MAUDE respirations Mental status Awake,Calm 12/27/24 16:14 FUR STRETCHER.MAUDE nausea No 12/27/24 16:14 FUR STRETCHER.MAUDE Vomiting No 12/27/24 16:14 FUR STRETCHERTEN Anesthesia Postop Eval I: Fluid Summary Crystalloid volume administer 1,000 12/27/24 16:14 FUR STRETCHER.MAUDE (ml) Colloids volume administered ( ml) Blood Product volume administered (ml) Total IV fluid infused 1,000 12/27/24 16:14 FUR [email or web address].MAUDE Anesthesia Postop Eval I: Summary Notes Anesthesia Complication No 12/27/24 16:14 FUR STRETCHERTEN Anesthesia Complication Comment: Post-operative progress note Anesthesia: Postop Eval II Evaluation Mental status: Awake Pain Level: 2 nausea: No Vomiting: No
--- NOTE | 2024-12-27 16:37 | PCM.POSTANE2 ---
Anesthesia Postop Eval I Sum Postop Eval Completion status Anesthesia document: Postop Eval 1 completed: Yes Anesthesia Postop Eval I Summary Anesthesia Postop Eval I Summary: Anesthesia Postop Eval I: Assessment Summary Airway patent Yes 12/27/24 16:14 RETAIL LOSS PREVENTION OFFICER.CINDYOBYehuda Spontaneous unlabored Yes 12/27/24 16:14 RETAIL LOSS PREVENTION OFFICER.MAUDE respirations Mental status Awake,Calm 12/27/24 16:14 RETAIL LOSS PREVENTION OFFICER.MAUDE nausea No 12/27/24 16:14 RETAIL LOSS PREVENTION OFFICER.MAUDE Vomiting No 12/27/24 16:14 RETAIL LOSS PREVENTION OFFICERTEN Anesthesia Postop Eval I: Fluid Summary Crystalloid volume administer 1,000 12/27/24 16:14 RETAIL LOSS PREVENTION OFFICER.MAUDE (ml) Colloids volume administered ( ml) Blood Product volume administered (ml) Total IV fluid infused 1,000 12/27/24 16:14 RETAIL LOSS PREVENTION OFFICER.MAUDE Anesthesia Postop Eval I: Summary Notes Anesthesia Complication No 12/27/24 16:14 RETAIL LOSS PREVENTION OFFICERTEN Anesthesia Complication Comment: Post-operative progress note Anesthesia: Postop Eval II Evaluation Mental status: Awake Pain Level: 2 nausea: No Vomiting: No
--- NOTE | 2024-12-27 17:12 | NURSING ---
pt with hoarse voice. will call cps to place on her own cpap machine.
[2024-12-28] VITALS (9 sets, daily range): BP systolic 126–158; BP diastolic 59–89; PULSE 76–96; RESP 16–18; TEMP 36.6–36.8; O2SAT 95–97
[2024-12-28] MEDS: 0.9% Normal Saline (1000mL) 1,000 ML 100 ML IV (00:20)
[2024-12-28] MEDS: 0.9% Saline Lock 10 ML Syringe IV ×2 (06:06→08:05)
[2024-12-28] MEDS: Albuterol 2.5 MG/3 ML VIAL.NEB. INHALATION ×3 (07:19→19:53)
[2024-12-28] MEDS: Budesonide Respules 0.5 MG/2 ML AMPUL.NEB. INHALATION ×2 (07:19→19:53)
[2024-12-28] MEDS: Senna/Docusate Sodium 1 Tablet 2 TABLET PO (08:14)
--- NOTE | 2024-12-28 08:31 | PN.SURG_ITS ---
Subjective Subjective Patient is evaluated resting comfortably in bed. She notes her pain has slightly improved. Objective Data Objective Data Vital Signs: Vital Signs Temp Pulse Resp BP Pulse Ox O2 Del Method O2 Flow Rate 97.8 F 76 18 139/76 H 96 Room Air 2 12/28/24 08:01 12/28/24 08:07 12/28/24 08:01 12/28/24 08:01 12/28/24 08:01 12/28/24 08:01 12/27/24 17:09 Oxygen Flow Rate (L/min) 2 Oxygen Delivery Method Room Air Weight: 318 lb 2.032 oz Body Mass Index (BMI) 56.3 Intake & Output: Intake and Output for Last 24 Hours 12/26/24 12/27/24 12/28/24 23:59 23:59 23:59 Intake Total 640 / 640 2324.41 / 2324.41 703.33 / 703.33 Output Total 2 / 2 Balance 640 / 640 2322.41 / 2322.41 703.33 / 703.33 Lab / Micro Data 12/28/24 07:42 12/28/24 07:42 Labs: Laboratory Results - last 24 hr 12/27/24 11:20: WBC 8.1, RBC 4.35, Hgb 12.9, Hct 40.6, MCV 93.3, MCH 29.7, MCHC 31.8 L, RDW Std Deviation 50.3 H, RDW Coeff of Bernice 14.6, Plt Count 217, MPV 9.2, Immature Gran % (Auto) 0.400, Neut % (Auto) 55.2, Lymph % (Auto) 35.9, [place] % (Auto) 6.9, Eos % (Auto) 1.4, Baso % (Auto) 0.2, Absolute Neuts (auto) 4.5, Absolute Lymphs (auto) 2.91, Nucleated RBC % 0, Sodium 140, Potassium 4.1, Chloride 108, Carbon Dioxide 21.6, Anion Gap 10, BUN 12, Creatinine 0.66 L, Estim Creat Clear Calc 149.91, Est GFR (MDRD) Non-Af 109, BUN/Creatinine Ratio 17.9, Glucose 100 H, Calcium 9.0, TSH 5.020 H 12/27/24 12:05: POC Glucose 101 12/27/24 17:14: POC Glucose 92 12/28/24 06:04: POC Glucose 143 H Micro: Microbiology 12/27/24 Unknown Wound Abcess - Aerobic & Anaerobic Swabs Gram Stain - Final 12/27/24 Unknown Wound Abcess - Aerobic & Anaerobic Swabs Wound Culture - Preliminary No growth-Final to follow Physical Exam Chest Chest Narrative: Left breast- open incision with bloody drainage noted. Erythema is receding. Packing was completely removed. Approximately a 2 inches of 1/4 iodoform packing was repacked. Gauze dressing was applied. Assessment & Plan Assessment/Plan (1) Abscess of breast, left: (2) Cellulitis of breast: PLAN: Plan I am following this patient in conjunction with Dr. Roman in Dr. Lorenz's absence. He has also independently evaluated this patient. Labs reviewed. WBC increased May transition to oral antibiotics If pain is controlled, patient may be discharged Recommend repacking the open wound daily and applying a dry gauze dressing Recommend showering with the packing out and then repacking the wound after patient shower She will need a follow-up in our office next week for re-evaluation of the wound. We will continue to monitor this patient. Patient is ready for discharge once pain controlled from a surgical standpoint Charges/Coding Visit Charges Inpatient E&M: 11245 Subs Hosp L1 (post-op; no charge)
[2024-12-28 08:39] LABS: Anion Gap 11 (5-15); BUN 12 mg/dL (4-19); BUN/Creat Ratio 18.5 RATIO (10-20); Calcium,Total 8.9 mg/dL (7.6-11.0); Carbon Dioxide 18.8 mmol/L (21.0-32.0); Chloride 110 mmol/L (98-108); Estimated Creatinine Clearance 154.60 ml/min (50-250); Glucose 139 mg/dL (70-99); Potassium 4.8 mmol/L (3.3-5.1)
[2024-12-28 08:43] LABS: Vancomycin, Trough Level 10.4 ug/mL (5.0-15.0)
[2024-12-28 08:44] LABS: Hematocrit 40.1 % (37-47); Hemoglobin 12.5 g/dL (12.0-15.0); Immature Granulocytes Count 0.090 X10^3/uL (0.0-0.0); Mean Corp Hgb Conc 31.2 g/dL (32-36); Mean Corpuscular Volume 94.1 fL (81-99); Mean Platelet Vol. 10.0 fl (6.2-12.0); NRBC Flagged by Analyzer 0 % (0-5); Platelet Count 236 K/mm3 (150-450); RBC Distribution Width CV 14.3 % (11.6-14.6); RBC Distribution Width SD 49.3 fl (35.1-43.9); Red Blood Count 4.26 M/mm3 (4.2-5.4); White Blood Count 13.9 K/mm3 (4.4-11.0)
[2024-12-28] MEDS: Vancomycin HCl 1,750 MG in 0.9% Normal Saline (500mL Bag) 500 ML 250 MG IV ×2 (09:54→21:04)
--- NOTE | 2024-12-28 10:14 | PCM.RX.CS ---
Consult Antibiotic Management Pharmacy has been consulted to manage selected antibiotic: Vancomycin Type of Intervention Type of Consult: Follow-up Suspected Infection Suspected Infection: Skin/Soft tissue Prior Doses of Antibiotics Prior Doses of Antibiotics Received/Current Regimen: LD X1 MD X2 Labs Labs: Sodium 140 mmol/L (133-145) 12/28/24 07:42 Potassium 4.8 mmol/L (3.3-5.1) 12/28/24 07:42 Chloride 110 mmol/L (98-108) H 12/28/24 07:42 Carbon Dioxide 18.8 mmol/L (21.0-32.0) L 12/28/24 07:42 Anion Gap 11 (5-15) 12/28/24 07:42 BUN 12 mg/dL (4-19) 12/28/24 07:42 Creatinine 0.64 mg/dL (0.70-1.20) L 12/28/24 07:42 Est GFR (MDRD) Non-Af 110 (>60) 12/28/24 07:42 BUN/Creatinine Ratio 18.5 RATIO (10-20) 12/28/24 07:42 Glucose 139 mg/dL (70-99) H 12/28/24 07:42 Vancomycin Trough 10.4 ug/mL (5.0-15.0) 12/28/24 07:42 Microbiology Microbiology: Microbiology 12/27/24 Unknown Wound Abcess - Aerobic & Anaerobic Swabs Gram Stain - Final 12/27/24 Unknown Wound Abcess - Aerobic & Anaerobic Swabs Wound Culture - Preliminary No growth-Final to follow Estimated Creatinine Clearance Estimated Creatinine Clearance: 154 Goal Trough Goal Trough: 10-15 mcg/mL Pharmacy Plan for Drug Dosing Pharmacy Plan for Drug Dosing: Pharmacy Service will continue to monitor and adjust dosing as required. VANCOMYCIN LEVEL RECEIVED Current Vancomycin Dose: 1750 MG Q12H Number of Doses Received: 3 (LD: 2000 MG X1, AND : 1750 MG X2) Vancomycin Level: 10.4 Hours Since Last Dose: 11 Renal Function: SCr: 0.64, CrCl: 154 Renal Function Trend: STABLE Lab/Micro: cellulitis -> no cultures drawn Vancomycin Plan/Comments: NO CHANGES AT THIS TIME, WILL CONTINUE WITH 1750 MG Q12H Pending Level: 12/30 0830 Date/Time Labs Ordered Labs to be done on [date and time ordered]: 12/30/24 @ 0830
--- NOTE | 2024-12-28 11:14 | NURSING ---
pt significant other left room. pt raising voice/using profanity towards him and telling him to leave.
--- NOTE | 2024-12-28 11:24 | NURSING ---
SW [place] in talking with patient.
--- NOTE | 2024-12-28 12:09 | CASEMGMT ---
Social Work- SW met with pt per bedside nurse request, as pt was emotional and threatening to leave AMA. When SW entered the room, pt was tearful, clenched jaw, tapping leg on the floor, with guarded body language. Pt was observed to be agitated, short in verbalizations and shouted that she was leaving no matter what. SW guided pt through conversation regarding desire to leave and precipitating factors. SW actively and empathetically listened as pt shared life events, relationship and home concerns, past history. SW provided support and education on processing emotions and utilization of coping skills. SW addressed concerns and guided through problem solving conversation with pt. SW spoke with pt SO and pt mother. Pt mother plans to visit this afternoon. Pt agreeable to remaining in hospital. SW remains available to follow. YESSY Echevarria
[2024-12-28] MEDS: hydrOXYzine PAM 25 MG Capsule PO ×2 (12:24→21:05)
--- NOTE | 2024-12-28 15:25 | PN.HOSP_ITS ---
Reason for Visit Chief Complaint: Worsening left breast cellulitis Subjective Subjective Saw patient at bedside this morning, significant other present. Patient was feeling upset and somewhat anxious this morning due to ongoing left breast pain and discomfort. She has a history of opiate abuse; has been sober for 16 years but does prefer to avoid opiates unless necessary. Has had some pain relief with IV Toradol. She is also upset about her dietary restriction, as she states she adheres to a strict diet at home but still could not eat certain foods that she does at home typically with the carb controlled diet. No other acute concerns at this time. Objective Data Objective Data Vital Signs: Vital Signs Temp Pulse Resp BP Pulse Ox O2 Del Method O2 Flow Rate 97.8 F 78 16 126/59 H 95 Room Air 2 12/28/24 14:28 12/28/24 14:28 12/28/24 14:28 12/28/24 14:28 12/28/24 14:28 12/28/24 14:28 12/27/24 17:09 Oxygen Flow Rate (L/min) 2 Oxygen Delivery Method Room Air Weight: 144.3 kg Body Mass Index (BMI) 56.3 Intake & Output: Intake and Output for Last 24 Hours 12/26/24 12/27/24 12/28/24 23:59 23:59 23:59 Intake Total 640 / 640 2324.41 / 2324.41 2195.00 / 2195.00 Output Total 2 / 2 Balance 640 / 640 2322.41 / 2322.41 2195.00 / 2195.00 Lab / Micro Data 12/28/24 07:42 12/28/24 07:42 Labs: Laboratory Results - last 24 hr 12/27/24 12:05: POC Glucose 101 12/27/24 17:14: POC Glucose 92 12/27/24 22:07: POC Glucose 208 H 12/27/24 22:08: POC Glucose 203 H 12/28/24 06:04: POC Glucose 143 H 12/28/24 07:42: WBC 13.9 H, RBC 4.26, Hgb 12.5, Hct 40.1, MCV 94.1, MCH 29.3, M CHC 31.2 L, RDW Std Deviation 49.3 H, RDW Coeff of Bernice 14.3, Plt Count 236, MPV 10.0, Immature Gran % (Auto) 0.600, Neut % (Auto) 75.3 H, Lymph % (Auto) 18.9 L, [place] % (Auto) 5.0, Eos % (Auto) 0.0, Baso % (Auto) 0.2, Absolute Neuts (auto) 10.4 H, Absolute Lymphs (auto) 2.62, Nucleated RBC % 0, Sodium 140, Potassium 4.8, Chloride 110 H, Carbon Dioxide 18.8 L, Anion Gap 11, BUN 12, Creatinine 0.64 L, Estim Creat Clear Calc 154.60, Est GFR (MDRD) Non-Af 110, BUN/Creatinine Ratio 18.5, Glucose 139 H, Calcium 8.9, Vancomycin Trough 10.4 Micro: Microbiology 12/27/24 Unknown Wound Abcess - Aerobic & Anaerobic Swabs Gram Stain - Final 12/27/24 Unknown Wound Abcess - Aerobic & Anaerobic Swabs Wound Culture - Preliminary No growth-Final to follow Physical Exam Const alert, oriented x3 and no apparent distress Constitutional Narrative: Middle-age female, class III obesity, mildly anxious appearing, otherwise sitting up comfortably in bed, conversing normally, in no acute distress. General Appearance: cooperative and comfortable HEENT normocephalic, head/scalp atraumatic, hearing grossly normal bilaterally, nasal mucous membranes and turbinates normal and moist oral mucous membranes Eyes PERRL, EOMs intact bilaterally and conjunctivae normal Neck full ROM Chest Chest Narrative: Left breast with large bandage in place. Moderate tenderness to palpation noted. Resp normal respiratory effort, normal air movement, no use of accessory muscles and clear to auscultation bilaterally Cardio regular rate, regular rhythm, no murmurs and peripheral pulses 2+ throughout GI normal to inspection, nondistended, normoactive bowel sounds, soft to palpation, non-tender and non-distended Back/Spine normal ROM Extremity normal to inspection, full ROM and no pedal edema Skin no rashes or lesions noted Psych mental status grossly normal Mood & Affect: anxious Assessment & Plan Assessment/Plan (1) Abscess of breast, left: (2) Cellulitis of breast: PLAN: Plan Patient is a 44-year-old female who presented to [facility] ED on 12/26/2024 with worsening left breath cellulitis with abscess. 1. Left breast cellulitis with abscess ? Surgery following. S/p I&D of left breast abscess on 12/27. Bloody drainage noted but no purulence noted. Pain control with IV Toradol as needed; notably patient would like to avoid opiates for pain given her history of opiate abuse as below. Will continue IV vancomycin while inpatient but will be fine to transition to oral antibiotics on discharge. If patient remains stable tomorrow and pain is improved, will plan for discharge home. 2. Anxiety/depression ? Has had worsened anxiety while inpatient due to active infection with pain as above as well as nicotine craving. Treating nicotine craving as below. Continue home lamotrigine. Will trial hydroxyzine as needed for anxiety for now. 3. History of opiate abuse ? Reports being sober now for 16 years. Avoiding opiates for pain relief as able as above. Chronic medical conditions: ? Class III obesity with EAMON: BMI 56 on admit. Complicates hospital course and care. Continue home PAP therapy at night. ? COPD/asthma: Not in acute exacerbation. Continue home inhalers and montelukast. ? Hypertension: Continue home Toprol and Lasix. ? GERD: Continue home PPI. ? Nicotine dependence: Continue nicotine patch daily and nicotine gum as needed. Discussed cessation at discharge. ? Type 2 diabetes mellitus: Continue sliding scale insulin with meals while inpatient, adjust as needed. ? Hypothyroidism: Continue home Synthroid. DVT prophylaxis: Lovenox twice daily CODE STATUS: Full code, verified Expected disposition: Home, 1 to 2 days Total clinical time spent by myself addressing the patient's medical issues, reviewing all the data, and collaborating with patient's care team: 35 minutes. Charges/Coding Visit Charges Inpatient E&M: 11861 Subs Hosp L2
[2024-12-29 03:48] VITALS: BP 152/98; PULSE 86; RESP 16; TEMP 36.6; O2SAT 96
[2024-12-29] MEDS: hydrOXYzine PAM 25 MG Capsule PO (04:33)
[2024-12-29] MEDS: Albuterol 2.5 MG/3 ML VIAL.NEB. INHALATION (07:51)
--- NOTE | 2024-12-29 07:57 | PN.SURG_ITS ---
Subjective Subjective The patient has multiple complaints this morning. She is complaining that her left arm is not working well. She is also complaining of pain in her right shoulder that radiates down to her abdomen. She is also pain complaining of left shoulder pain is radiating down to her abdomen. She is also complaining of abdominal pain. She is also complaining of sore throat. She also reports weakness in her left arm. Objective Data Objective Data Vital Signs: Vital Signs Temp Pulse Resp BP Pulse Ox O2 Del Method O2 Flow Rate 97.9 F 86 16 152/98 H 96 Room Air 2 12/29/24 03:48 12/29/24 03:48 12/29/24 03:48 12/29/24 03:48 12/29/24 03:48 12/29/24 03:48 12/27/24 17:09 Oxygen Flow Rate (L/min) 2 Oxygen Delivery Method Room Air Weight: 318 lb 2.032 oz Body Mass Index (BMI) 56.3 Intake & Output: Intake and Output for Last 24 Hours 12/27/24 12/28/24 12/29/24 23:59 23:59 23:59 Intake Total 2324.41 / 2324.41 3130.00 / 3130.00 300 / 300 Output Total 2 / 2 Balance 2322.41 / 2322.41 3130.00 / 3130.00 300 / 300 Lab / Micro Data 12/28/24 07:42 12/28/24 07:42 Labs: Laboratory Results - last 24 hr 12/27/24 22:07: POC Glucose 208 H 12/27/24 22:08: POC Glucose 203 H 12/28/24 07:42: WBC 13.9 H, RBC 4.26, Hgb 12.5, Hct 40.1, MCV 94.1, MCH 29.3, M CHC 31.2 L, RDW Std Deviation 49.3 H, RDW Coeff of Bernice 14.3, Plt Count 236, MPV 10.0, Immature Gran % (Auto) 0.600, Neut % (Auto) 75.3 H, Lymph % (Auto) 18.9 L, [place] % (Auto) 5.0, Eos % (Auto) 0.0, Baso % (Auto) 0.2, Absolute Neuts (auto) 10.4 H, Absolute Lymphs (auto) 2.62, Nucleated RBC % 0, Sodium 140, Potassium 4.8, Chloride 110 H, Carbon Dioxide 18.8 L, Anion Gap 11, BUN 12, Creatinine 0.64 L, Estim Creat Clear Calc 154.60, Est GFR (MDRD) Non-Af 110, BUN/Creatinine Ratio 18.5, Glucose 139 H, Calcium 8.9, Vancomycin Trough 10.4 12/28/24 12:32: POC Glucose 147 H 12/28/24 16:10: POC Glucose 140 H 12/28/24 21:29: POC Glucose 151 H 12/29/24 04:38: POC Glucose 106 Micro: Microbiology 12/27/24 Unknown Wound Abcess - Aerobic & Anaerobic Swabs Gram Stain - Final 12/27/24 Unknown Wound Abcess - Aerobic & Anaerobic Swabs Wound Culture - Preliminary No growth-Final to follow Physical Exam Const oriented x3 and no apparent distress Resp normal respiratory effort GI soft to palpation Assessment & Plan Assessment/Plan (1) Abscess of breast, left: PLAN: The patient seems to be doing well from the breast abscess perspective but she seems to have multiple other complaints including arm pain and weakness and abdominal pain that do not seem to be specific. She would like to go home today and as far as the breast abscess goes she may be discharged home. Roshan Shannon MD Pager: [facility] [address] [place] [address], [address] [place] [address] Office:
[2024-12-29 08:05] VITALS: PULSE 72; RESP 18; O2SAT 96
[2024-12-29 08:15] VITALS: BP 119/61; PULSE 77; RESP 18; TEMP 36.4; O2SAT 96
[2024-12-29] MEDS: 0.9% Saline Lock 10 ML Syringe IV (09:28)
[2024-12-29 09:29] VITALS: PULSE 77
[2024-12-29] MEDS: Vancomycin HCl 1,750 MG in 0.9% Normal Saline (500mL Bag) 500 ML 250 MG IV (09:29)
[2024-12-29] MEDS: Potassium Chloride Oral Tablet 10 MEQ PO (09:29)
--- NOTE | 2024-12-29 11:00 | PCM.DC.SUM ---
Providers Date of Admission: 12/26/24 Date of Discharge: 12/29/24 Primary Care Physician: Dr. Rhonda Adkins MD Consultations 12/26/24 18:29 Consult: General Surgery Routine Consulting Provider: Jamar Lorenz Reason for Consult: breast cellulitis, poss continued abscess w/ recent I&D EMERGENT Consult: No MD Notified: Yes Date Notified: 12/26/24 Time Notified: 18:19 Method of Notification: ED Physician Initiated Consult: Onc/Wound/rag cutting machine tender Routine Comment: Reason for Consult:: breast abscess w/ I&D Reason For Visit: WORSENING LEFT BREAST CELLULITIS Diagnosis Discharge Diagnosis (1) Abscess of breast, left: Status: Acute Code(s): N61.1 - Abscess of the breast and nipple (2) Breast pain, left: Status: Acute Code(s): N64.4 - Mastodynia Medications at Discharge Home Medications ipratropium 0.5 mg-albuterol 3 mg (2.5 mg base)/3 mL nebulization soln 3 ml IH Q6H PRN PRN Sob &/Or Wheezing 05/24/19 furosemide 40 mg tablet 40 mg PO DAILY diruetic #5 tabs 10/03/19 metoprolol succinate 25 mg tablet,extended release 24 hr 25 mg PO BID heart bp 11/02/19 famotidine 20 mg tablet (Pepcid) 40 mg PO DAILY gerd 11/13/19 levothyroxine 50 mcg capsule 50 mcg PO DAILY thyroid 05/15/21 omeprazole 20 mg capsule,delayed release 20 mg PO QHS gerd 05/01/22 lamotrigine 100 mg tablet 200 mg PO QHS mood 07/31/22 potassium chloride 10 mEq capsule,extended release 10 meq PO DAILY supplement 07/31/22 cetirizine 10 mg capsule 10 mg PO HS allergies #30 caps 02/12/23 albuterol sulfate 90 mcg/actuation aerosol inhaler 2 puff inhalation Q4H PRN PRN Asthma #8.5 grams 11/01/23 dulaglutide 0.75 mg/0.5 mL subcutaneous pen injector (Trulicity) 0.75 mg subcut QWEEK blood glucose 11/04/23 fluticasone furoate 200 mcg-vilanterol 25 mcg/dose inhalation powder (Breo Ellipta) 1 inh inhalation QDAY asthma #60 ea 11/04/23 montelukast 10 mg tablet 10 mg PO DAILY asthma #30 tabs 12/08/23 doxycycline hyclate 100 mg tablet 100 mg PO BID 7 days #14 tabs 12/29/24 oxycodone 5 mg tablet 5 mg PO TID PRN pain 3 days #9 tabs 12/29/24 Hospital Course Operations None Procedures - (I&D of left breast abscess, breast ultrasound) Summary of Care Provided Minutes Spent on Discharge: 35 Hospital Course: Patient is a 44-year-old female who presented to [facility] ED on 12/26/2024 with worsening left breath cellulitis with abscess. Hospital course as noted below. Patient discharged home in stable condition on 12/29. 1. Left breast cellulitis with abscess ? Surgery followed. S/p I&D of left breast abscess on 12/27. Bloody drainage but no purulence noted. Cultures with no growth. Treated with IV vancomycin while inpatient, okay for doxycycline on discharge to complete 7-day course of antibiotics total. Treated with IV Toradol and p.o. oxycodone while inpatient for pain with moderate relief of pain. Patient has history of opiate abuse as below but okay for short 3-day course of oxycodone on discharge for pain control. Surgery recommended repacking the open wound with application of dry gauze dressing daily on discharge, with plan to follow-up with the surgery office in 1 week. 2. Anxiety/depression ? Patient had worsened anxiety while inpatient due to the active infection as above with significant pain as well as nicotine craving. Treated nicotine craving as below. Trialed low-dose hydroxyzine with some improvement in symptoms. Continue home lamotrigine. 3. History of opiate abuse ? Reports being sober now for 16 years. Limited opiate pain medications as able and only short course of oxycodone prescribed on discharge. Chronic medical conditions: ? Class III obesity with EAMON: BMI 56 on admit. Complicated hospital course and care. Continue home PAP therapy at night. ? COPD/asthma: Not in acute exacerbation. Continue home inhalers and montelukast. ? Hypertension: Continue home Toprol and Lasix. ? GERD: Continue home PPI. ? Nicotine dependence: Nicotine patch and nicotine gum utilized during hospitalization. Discussed cessation on discharge. ? Type 2 diabetes mellitus: Continue sliding scale insulin with meals while inpatient, adjust as needed. ? Hypothyroidism: Continue home Synthroid. Total clinical time spent by myself addressing the patient's medical issues, reviewing all the data, and collaborating with patient's care team: 35 minutes. Physical Exam Const alert, oriented x3 and no apparent distress Constitutional Narrative: Middle-age female, class III obesity, mildly anxious appearing, otherwise sitting up comfortably in bed, conversing normally, in no acute distress. Stable. General Appearance: cooperative and comfortable HEENT normocephalic, head/scalp atraumatic, hearing grossly normal bilaterally, nasal mucous membranes and turbinates normal and moist oral mucous membranes Eyes PERRL, EOMs intact bilaterally and conjunctivae normal Neck full ROM Chest Chest Narrative: Left breast with large bandage in place. Mild to moderate tenderness to palpation noted, slowly improving. Resp normal respiratory effort, normal air movement, no use of accessory muscles and clear to auscultation bilaterally Cardio regular rate, regular rhythm, no murmurs and peripheral pulses 2+ throughout GI normal to inspection, nondistended, normoactive bowel sounds, soft to palpation, non-tender and non-distended Back/Spine normal ROM Extremity normal to inspection, full ROM and no pedal edema Skin no rashes or lesions noted Psych mental status grossly normal Mood & Affect: anxious Weight / BMI Weight Weight: 144.3 kg Body Mass Index (BMI) 56.3 ABG / Lab / Microbiology Data 12/28/24 07:42 12/28/24 07:42 Laboratory: Laboratory Results - last 24 hr 12/28/24 21:29: POC Glucose 151 H 12/29/24 04:38: POC Glucose 106 12/29/24 11:59: POC Glucose 98 Microbiology: Microbiology 12/27/24 Unknown Wound Abcess - Aerobic & Anaerobic Swabs Gram Stain - Final 12/27/24 Unknown Wound Abcess - Aerobic & Anaerobic Swabs Wound Culture - Preliminary No growth-Final to follow 12/27/24 Unknown Wound Abcess - Aerobic & Anaerobic Swabs Anaerobic Culture - Preliminary Checking for anaerobes, further studies to follow. D/C Instructions DC O2, CPAP, BIPAP Needs Home O2 Discharge instructions: No Meaningful Use Info Meaningful Use Meaningful Use Diagnoses (Choose all that apply): None applicable Discharge Plan Admission Admit Date/Time: 12/26/24 18:03 Primary Reason for Your Visit: breast pain w/ redness and swelling Attending Provider: Riccardo Farias Primary Care Provider: Rhonda Adkins Consulting Providers: Jamar Lorenz; Madiha Coronel; Vicenta Reyez Instructions Additional Instructions / Restrictions: Wound care instructions per Surgery: - Recommend repacking the open wound daily and applying a dry gauze dressing - Recommend showering with the packing out and then repacking the wound after patient shower - Follow-up in the office in 1 week for reevaluation of the wound Please take doxycycline twice daily for the next 7 days to complete antibiotic course for the breast infection. Take oxycodone only as needed for pain. Discharge Orders/Prescriptions Prescriptions: New oxycodone 5 mg tablet 5 mg PO TID PRN (Reason: pain) 3 Days Qty: 9 0RF Continued metoprolol succinate 25 mg tablet extended release 24 hr 25 mg PO BID furosemide 40 mg tablet 40 mg PO DAILY Qty: 5 0RF famotidine [Pepcid] 20 mg tablet 40 mg PO DAILY levothyroxine 50 mcg capsule 50 mcg PO DAILY omeprazole 20 mg capsule,delayed release(DR/EC) 20 mg PO QHS potassium chloride 10 mEq capsule, extended release 10 meq PO DAILY Trulicity 0.75 mg/0.5 mL pen injector 0.75 mg subcut QWEEK fluticasone furoate-vilanterol [Breo Ellipta] 200-25 mcg/dose blister with device 1 inh inhalation QDAY Qty: 60 6RF Rx Instructions: after inhalation, rinse mouth with water and spit out; do not swallow lamotrigine 100 mg tablet 200 mg PO QHS ipratropium-albuterol 3 ML solution for nebulization 3 ml IH Q6H PRN PRN (Reason: Sob &/Or Wheezing) doxycycline hyclate 100 mg tablet 100 mg PO BID 7 Days Qty: 14 0RF cetirizine 10 mg capsule 10 mg PO HS Qty: 30 6RF albuterol sulfate 90 mcg/actuation HFA aerosol inhaler 2 puff inhalation Q4H PRN PRN (Reason: Asthma) Qty: 8.5 6RF montelukast 10 mg tablet 10 mg PO DAILY Qty: 30 6RF Discontinued cephalexin 500 mg capsule 500 mg PO Q6 7 Days Qty: 28 0RF Referrals / Follow Up: Rhonda Adkins MD [Primary Care Provider] - 01/03/25 9:00 am (Arrive at 8:45.) Jamar Lorenz MD [Med Staff - Active Staff] - 01/04/25 9:45 am Disposition Disposition (needs filled in before D/C Order can be placed): Home, Self Care Charges/Coding Visit Charges Inpatient E&M: 90754 Disch Hosp >30min
[2024-12-29 12:54] VITALS: BP 150/91; PULSE 62; RESP 18; TEMP 36.3; O2SAT 96
== END 2024-12-29 13:04 | disposition home or self-care (01) | DRG 385 ==
LOC: ED 16:16 → MS3 18:07
PROVIDERS: Physician Assistant; Student in an Organized Health Care Education/Training Program; Surgery; Admitting Provider Internal Medicine; Emergency Provider Emergency Medicine; PCP Internal Medicine; Visit Provider Hospitalist
PROC: 0H9U0ZZ Drainage of Left Breast, Open Approach (ICD-10-PCS; principal; 2024-12-27 13:35)
DX: N61.1 Abscess of the breast and nipple (principal); Z68.43 Body mass index [BMI] 50.0-59.9, adult; J44.9 Chronic obstructive pulmonary disease, unspecified; E11.9 Type 2 diabetes mellitus without complications; F11.11 Opioid abuse, in remission; E03.9 Hypothyroidism, unspecified; I10 Essential (primary) hypertension; F32.A Depression, unspecified; K21.9 Gastro-esophageal reflux disease without esophagitis; J45.20 Mild intermittent asthma, uncomplicated; G47.33 Obstructive sleep apnea (adult) (pediatric); F41.9 Anxiety disorder, unspecified; F17.210 Nicotine dependence, cigarettes, uncomplicated; M25.511 Pain in right shoulder; M25.512 Pain in left shoulder; J02.9 Acute pharyngitis, unspecified; E66.813 Obesity, class 3; N64.4 Mastodynia; Z79.85 Long-term (current) use of injectable non-insulin antidiabetic drugs; Z79.890 Hormone replacement therapy; Z79.899 Other long term (current) drug therapy; Z86.14 Personal history of Methicillin resistant Staphylococcus aureus infection; R10.9 Unspecified abdominal pain; R29.898 Other symptoms and signs involving the musculoskeletal system
CPT/HCPCS: 10060; 36415; 76642; 80048; 80202; 82962; 83605; 84443; 85025; 87070; 87075; 87077; 87186; 87205; 93005; 94640; 94668; 96374; 99282; 99284; 99406; A4216; J0295; J2405